=== PATIENT | male | born 1950 | race Caucasian/White ===

== ENCOUNTER 2019-10-11 14:42 | Outpatient (CLI) | payer MEDICARE, SELFPAY ==
[2019-10-11 15:51] LABS: CRP < 0.5 mg/dL (<1.0); Rheumatoid Factor 59.1 IU/ML (<12); Uric Acid 5.2 mg/dL (3.5-8.5)
[2019-10-11 16:00] LABS: Erythrocyte Sedimentation Rate 49 mm/hr (0-20)
[2019-10-16 21:56] LABS: Anti Nuclear Antibody Titer 1:40 (Negative)
== END 2019-10-11 14:43 | disposition home or self-care (01) ==
PROVIDERS: PCP Family Medicine; Visit Provider Podiatrist Foot & Ankle Surgery
DX: M19.90 Unspecified osteoarthritis, unspecified site (principal)
CPT/HCPCS: 36415; 84550; 85652; 86038; 86039; 86140; 86430

== ENCOUNTER 2019-10-19 04:54 | Emergency (ER) | payer MEDICARE, SELFPAY ==
--- NOTE | ~2019-10-19 | XR_ITS ---
XR chest 2V DATE: 10/19/2019 05:33 INDICATION: Cough TECHNIQUE: AP and lateral views COMPARISON: 07/22/2019 CT pulmonary scan 07/22/2019 2 view chest FINDINGS: Prominently dilated left pulmonary artery is again noted. Heart size appears borderline. Th oracic and abdominal aortic calcification. No pulmonary infiltrate or consolidation, pleural effusion or pulmonary vascular congestion or pneumo thorax. IMPRESSION: No active pulmonary disease Reviewed, dictated and finalized at location A. RVES CLERK IMPRESSION: No active pulmonary disease
[2019-10-19 04:58] VITALS: BP 160/59; PULSE 110; RESP 24; TEMP 37.7; O2SAT 98
[2019-10-19] MEDS: LACTATED RINGERS 1,000 ML 999 ML IV CONT (05:09)
[2019-10-19] MEDS: ACETAMINOPHEN 325 MG TABLET 650 MG PO (05:09)
[2019-10-19] MEDS: OSELTAMIVIR PHOSPHATE 75 MG CAP PO (05:09)
--- NOTE | 2019-10-19 05:11 | ED.FEVER ---
HPI - Fever General Chief Complaint: Fever Stated Complaint: fever Time Seen by Provider: 10/19/19 05:02 History of Present Illness HPI Narrative: Pt c/o cough, fever, nasal congestion and body aches x 2-3 days. Denies headache, dizziness, cp, sob, abd pain, n/v/d or urinary symptoms. MD elicited complaint: malaise Exacerbating factors: nothing Relieving factors: nothing Associated symptoms: denies other symptoms Treatments prior to arrival fever: none Related Data Home Medications Medication Instructions Recorded Confirmed alprazolam 0.5 mg tablet 0.5 mg PO TID PRN 07/12/19 12/07/19 amlodipine 5 mg tablet 10 mg PO DAILY 07/12/19 12/07/19 atorvastatin 40 mg tablet 40 mg PO DAILY 07/12/19 12/07/19 blood sugar diagnostic #10 each 07/12/19 12/07/19 blood-glucose meter #1 each 07/12/19 12/07/19 carvedilol 12.5 mg tablet 12.5 mg PO Q12H 07/12/19 12/07/19 hydrochlorothiazide 25 mg tablet 12.5 mg PO DAILY 07/12/19 12/07/19 lisinopril 20 mg tablet 20 mg PO DAILY 07/12/19 12/07/19 meclizine 25 mg tablet 25 mg PO TID PRN 07/12/19 12/07/19 nitroglycerin 0.3 mg sublingual 0.3 mg SUBLINGUAL Q5M PRN 07/12/19 12/07/19 tablet nortriptyline 25 mg capsule 25 mg PO DAILY 07/12/19 12/07/19 pantoprazole 40 mg tablet,delayed 40 mg PO DAILY tablet 07/12/19 12/07/19 release Brilinta 60 mg PO BID 07/22/19 12/07/19 aspirin 81 mg PO DAILY 07/22/19 12/07/19 folic acid 800 mg PO DAILY 07/22/19 12/07/19 Allergies Allergy/AdvReac Type Severity Reaction Status Date / Time No Known Allergies Allergy Verified 12/13/19 10:05 Review of Systems Review of Systems: All systems reviewed & are unremarkable except as noted in HPI and below Constitutional: Constitutional: Denies excessive sweating, Denies fatigue, Denies headache(s), Denies lethargy, Denies weakness and Denies weight loss Eyes: Eyes: Denies blurry vision, Denies change in vision and Denies loss of vision ENT: Denies dizziness, Denies ear discharge, Denies headache(s), Denies lip swelling, Denies epistaxis, Denies neck pain, Denies throat swelling and Denies tongue swelling Cardiovascular: Cardiovascular: Denies chest pain, Denies chest pain at rest, Denies chest pain with activity, Denies diaphoresis, Denies rapid heart rate, Denies edema, Denies irregular heart rhythm, Denies lightheadedness, Denies palpitations, Denies dyspnea and Denies dyspnea on exertion Respiratory: Respiratory: Denies chest congestion, Denies hemoptysis, Denies dyspnea and Denies dyspnea on exertion Gastrointestinal: Gastrointestinal: Denies abdominal pain, Denies melena, Denies hematochezia, Denies diarrhea, Denies nausea, Denies vomiting and Denies hematemesis Musculoskeletal: Musculoskeletal: Denies abnormal gait, Denies deformity, Denies joint swelling, Denies limited range of motion, Denies neck pain and Denies numbness Neurologic: Denies Abnormal speech present, Denies abnormal gait, Denies confusion, Denies dizziness, Denies headache(s), Denies focal weakness, Denies loss of vision, Denies numbness, Denies Other visual disturbances, Denies Sensory deficit (Neuro) and Denies weakness Psychiatric: Psychiatric: Denies confusion, Denies depression, Denies auditory hallucinations, Denies homicidal ideation and Denies suicidal ideation Endocrine: Endocrine: Denies cold intolerance, Denies excessive sweating, Denies fatigue, Denies heat intolerance and Denies palpitations Hematologic/Lymphatic: Hematologic/Lymphatic: Denies easy bleeding and Denies easy bruising Allergic/Immunologic: Allergic/Immunologic: Denies lip swelling, Denies throat swelling and Denies tongue swelling PMFSH Past Medical History Medical History (Updated 12/13/19 @ 10:45 by Marisol Smith MD) Anemia CAD (coronary artery disease) Carotid stenosis, asymptomatic h/o intracranial cerebral stenosis, evaluated at [facility] 05/2019, thought not to be symptomatic cont med tx. Chest pain Coronary artery disease Cardiac catheterization November 2009 re
[2019-10-19 05:37] VITALS: BP 186/69; PULSE 101; RESP 24; O2SAT 99
[2019-10-19 05:55] LABS: Glucose Point of Care 114 (65-105)
[2019-10-19 06:03] VITALS: BP 184/96; PULSE 101; RESP 20; TEMP 37.2; O2SAT 100
--- NOTE | 2019-10-25 06:56 | PC.NURSE ---
LATE ENTRY This note is being entered to document information to the patient's record. The following information was omitted on 10/19/2019, lr stopped at 0603
== END 2019-10-19 06:05 | disposition home or self-care (01) ==
PROVIDERS: Emergency Provider Emergency Medicine; PCP Family Medicine
DX: J10.1 Influenza due to other identified influenza virus with other respiratory manifestations (principal); Z87.891 Personal history of nicotine dependence; Z79.82 Long term (current) use of aspirin; E11.9 Type 2 diabetes mellitus without complications; I25.10 Atherosclerotic heart disease of native coronary artery without angina pectoris; I10 Essential (primary) hypertension; E78.2 Mixed hyperlipidemia; Z86.718 Personal history of other venous thrombosis and embolism; Z85.46 Personal history of malignant neoplasm of prostate; Z95.5 Presence of coronary angioplasty implant and graft; Z90.79 Acquired absence of other genital organ(s)
CPT/HCPCS: 71046; 82948; 87804; 96360; 99283; A9270; J7120

== ENCOUNTER 2019-11-15 08:47 | Outpatient (CLI) | payer MEDICARE, SELFPAY ==
[2019-11-15 11:07] LABS: Cholesterol 203 mg/dL (0-200); HDL Direct 44 mg/dL; Triglycerides 106 mg/dL (<150)
[2019-11-15 11:15] LABS: NT Pro B Type Natriuretic Pept 24 PG/ML (5-100)
[2019-11-15 11:18] LABS: LDL Cholesterol Direct 125 mg/dL
== END 2019-11-15 08:48 | disposition home or self-care (01) ==
PROVIDERS: PCP Family Medicine
DX: I25.119 Atherosclerotic heart disease of native coronary artery with unspecified angina pectoris (principal); I25.10 Atherosclerotic heart disease of native coronary artery without angina pectoris; R94.30 Abnormal result of cardiovascular function study, unspecified; R06.02 Shortness of breath; I10 Essential (primary) hypertension; E78.2 Mixed hyperlipidemia; C61 Malignant neoplasm of prostate
CPT/HCPCS: 36415; 80061; 83880

== ENCOUNTER 2019-12-13 12:00 | Outpatient (CLI) | payer MEDICARE, SELFPAY ==
--- NOTE | ~2019-12-13 | XR_ITS ---
EXAMINATION: XR foot LT standing 2V EXAM DATE: 12/13/2019 12:42 INDICATION: Left foot pain. Osteoarthritis. TECHNIQUE: Frontal and lateral projections of the left foot. Images were obtained standing. Gage rison is made to prior examination from 09/15/2019. FINDINGS: Left calcaneal small posterior, moderate size inferior spurs. Joint spaces are uniform. No periosteal reaction or band of sclerosis to suggest subacute stress fracture. There are no bony eros ions identified. There are no acute fractures or dislocations identified. There is no subcutaneous g as. The soft tissue is unremarkable. There are no radiopaque foreign bodies. There is no signific ant interval change. IMPRESSION: Calcaneal spurs. Reviewed, dictated and finalized at location A. IMPRESSION: Calcaneal spurs.
--- NOTE | ~2019-12-13 | XR_ITS ---
XR knee RT min 4V, XR knee LT min 4V 12/13/2019 12:42 Indication: Osteoarthritis. Knee pain. Procedure: 4 views of each knee Comparison: 06/30/2011 Findings: There is mild-moderate tricompartment osteoarthritis of both knees, most advanced in the me dial compartments. No fracture, subluxation or dislocation. No significant joint effusion. No radiopa que foreign bodies. Impression: 1: Mild-moderate osteoarthritis of the knees bilaterally, most advanced in the medial compartments. Reviewed, dictated and finalized at location A. Impression: 1: Mild-moderate osteoarthritis of the knees bilaterally, most advanced in the medial compartments. Impression: 1: Mild-moderate osteoarthritis of the knees bilaterally, most advanced in the medial compartments.
--- NOTE | ~2019-12-13 | XR_ITS ---
EXAMINATION: HAND-EN ARTHRITIS 3+VIEWS DATE: 12/13/2019 12:42 INDICATION: Osteoarthritis TECHNIQUE: Posteroanterior, lateral, and oblique views of the left and of the right hands as well as a ballcatchers view of both hands were obtained. COMPARISON: None. FINDINGS: Bone alignment is normal at both hands. No fracture. Large bone island at the left capitate. Polyarti cular osteoarthritis at both hands, moderate severity at the right second proximal phalanx and mild a t the bilateral triscaphe, first carpometacarpal and majority the remaining metacarpophalangeal and i nterphalangeal joints. No erosions to suggest an inflammatory arthritis. IMPRESSION: 1. Polyarticular osteoarthritis at both hands, moderate severity at the right second proximal interph alangeal joint and otherwise mild with typical relatively symmetric distribution. Reviewed, dictated and finalized at location A. IMPRESSION: 1. Polyarticular osteoarthritis at both hands, moderate severity at the right s econd proximal interphalangeal joint and otherwise mild with typical relatively symmetric distribution.
--- NOTE | ~2019-12-13 | XR_ITS ---
EXAMINATION: XR foot RT standing 2V EXAM DATE: 12/13/2019 12:42 INDICATION: Right foot. Osteoarthritis. TECHNIQUE: Frontal and lateral projections of the right foot. Images were obtained standing. Compari son is made to prior examination from 12/22/2018. FINDINGS: Small to moderate-sized right calcaneal inferior spur, small posterior calcaneal spur. No periosteal reaction or band of sclerosis to suggest subacute stress fracture. The joint spaces are un iform. There are no bony erosions identified. There are no acute fractures or dislocations identified . There is no subcutaneous gas. The soft tissue is unremarkable. There are no radiopaque foreign bodies. IMPRESSION: Right calcaneal spurs. Reviewed, dictated and finalized at location A. IMPRESSION: Right calcaneal spurs.
--- NOTE | ~2019-12-13 | XR_ITS ---
XR hip BI 2V w AP pelvis 12/13/2019 12:42 Indication: Osteoarthritis. Hip pain. Procedure: AP pelvis Comparison: 03/06/2017 Findings: Mild osteoarthritis of the hips. Pelvic rings are intact. Sacral foramen are symmetric. Pel sharmin rings are intact. There are vascular stents. There are surgical changes in the pelvis. Impression: 1: Mild osteoarthritis of the hips. Reviewed, dictated and finalized at location A. Impression: 1: Mild osteoarthritis of the hips.
[2019-12-15 21:54] LABS: Anti Cyclic Citrullinated Pept <16 Units (<20)
[2019-12-17 04:43] LABS: ANA Cascade Screen Positive (Negative)
[2019-12-17 09:22] LABS: Chromatin (Nucleosomal) Ab <1.0; Chromatin Antibody Charge YES; DNA (ds) Antibody Charge YES; RNP Antibody 4.6; RNP Antibody Charge YES; Sm Antibody <1.0; Sm Antibody Charge YES; Sm/RNP Antibody <1.0; Sm/RNP Antibody Charge YES
== END 2019-12-13 12:01 | disposition home or self-care (01) ==
PROVIDERS: PCP Family Medicine; Visit Provider Internal Medicine
DX: M19.90 Unspecified osteoarthritis, unspecified site (principal); M10.9 Gout, unspecified; M77.31 Calcaneal spur, right foot; M19.041 Primary osteoarthritis, right hand; M19.042 Primary osteoarthritis, left hand; M77.32 Calcaneal spur, left foot; M16.0 Bilateral primary osteoarthritis of hip; M17.0 Bilateral primary osteoarthritis of knee
CPT/HCPCS: 36415; 73130; 73521; 73564; 73620; 86038; 86200

== ENCOUNTER 2019-12-14 11:33 | Outpatient (RCR) | payer MEDICARE, SELFPAY | END 2019-12-14 23:59 | disposition home or self-care (01) | LOC: ANHAUDIO 11:33 | PROVIDERS: PCP Family Medicine; Visit Provider Family Medicine | DX: Z46.1 Encounter for fitting and adjustment of hearing aid (principal) | CPT/HCPCS: 92592 ==

== ENCOUNTER 2020-01-05 14:28 | Outpatient (CLI) | payer MEDICARE, SELFPAY ==
--- NOTE | ~2020-01-05 | XR_ITS ---
EXAMINATION: XR_CERV2-3V_CR EXAM DATE: 01/05/2020 16:06 INDICATION: Neck pain. TECHNIQUE: Cervical spine frontal, lateral, open-mouth odontoid projections. There is no prior stud y for comparison. FINDINGS: The vertebral bodies are aligned in the AP dimension. Mild to moderate disc disease at C4- 5 and 5-6, mild at the other cervical levels. There is overall mild to moderate cervical arthropathy. Prevertebral soft tissue and pre-dens space are within normal limits. The odontoid process is intact . The lateral masses of C1 line up with C2. Lung apices are clear. There is aortic arteriosclerosis. IMPRESSION: Mild to moderate cervical spondylosis. Reviewed, dictated and finalized at location A.
--- NOTE | ~2020-01-05 | XR_ITS ---
XR shoulder RT min 2V 01/05/2020 16:06 Indication: Right shoulder pain Procedure: 4 views right shoulder Comparison: 05/05/2019 Findings: No acute fracture or traumatic malalignment. No significant soft tissue abnormality. No vis ualized lung parenchyma is unremarkable. No focal soft tissue abnormality. No foreign bodies. Impression: 1: No acute bone or joint abnormality. Reviewed, dictated and finalized at location A. Impression: 1: No acute bone or joint abnormality.
== END 2020-01-05 14:29 | disposition home or self-care (01) ==
LOC: ANHIMG 15:36
PROVIDERS: PCP Family Medicine; Visit Provider Nurse Practitioner Family
DX: M25.519 Pain in unspecified shoulder (principal); M54.2 Cervicalgia; M47.812 Spondylosis without myelopathy or radiculopathy, cervical region
CPT/HCPCS: 72040; 73030

== ENCOUNTER 2020-03-17 07:12 | Outpatient (NON) | payer MEDICARE, SELFPAY ==
[2020-03-17 18:30] LABS: SARS-CoV-2 RNA PCR Negative
== END 2020-03-17 07:13 ==
PROVIDERS: PCP Family Medicine; Visit Provider Family Medicine
DX: J02.9 Acute pharyngitis, unspecified (principal); R68.89 Other general symptoms and signs; Z20.828 Contact with and (suspected) exposure to other viral communicable diseases
CPT/HCPCS: 87635; C9803; U0003

== ENCOUNTER 2020-04-04 13:33 | Outpatient (CLI) | payer MEDICARE, SELFPAY ==
--- NOTE | ~2020-04-04 | US_ITS ---
EXAMINATION: US venous doppler [facility] DATE: 04/04/2020 14:22 INDICATION: Bilateral lower limb pain TECHNIQUE: Grayscale ultrasound images without and with compression and Doppler ultrasound images of the bilateral lower extremity veins were obtained. COMPARISON: 09/15/2019 FINDINGS: The visualized portions of right common femoral vein, profunda (deep) femoral vein, femoral vein, pop liteal vein, posterior tibial veins, peroneal veins, gastrocnemius vein and greater saphenous vein ou tflow are patent. The visualized portions of left common femoral vein, profunda femoral vein, femoral vein, popliteal v ein, posterior tibial veins, peroneal veins, gastrocnemius vein and greater saphenous vein outflow ar e patent. IMPRESSION: 1. No deep venous thrombosis in either lower limb. Reviewed, dictated and finalized at location A.
== END 2020-04-04 13:34 | disposition home or self-care (01) ==
LOC: ANHIMG 13:46
PROVIDERS: PCP Family Medicine; Visit Provider Nurse Practitioner Family
DX: M79.89 Other specified soft tissue disorders (principal)
CPT/HCPCS: 93970

== ENCOUNTER 2020-04-17 19:41 | Emergency (ER) | payer MEDICARE, SELFPAY ==
--- NOTE | ~2020-04-17 | XR_ITS ---
EXAMINATION: XR chest 1V portable DATE: 04/17/2020 20:32 INDICATION: Weakness. TECHNIQUE: frontal view of the chest was obtained. COMPARISON: Chest radiograph dated 10/19/2019 FINDINGS: The lungs remain clear with no focal airspace opacities, pulmonary edema, pleural effusion or pneumot horax. Cardiomegaly. Enlargement of the central pulmonary arteries consistent with pulmonary arterial hypertension. Resection of the distal right clavicle. Atherosclerotic calcifications at the bilatera l carotid bulbs. IMPRESSION: 1. No acute cardiopulmonary disease. 2. Cardiomegaly along with enlargement of the central pulmonary arteries consistent with pulmonary ar terial hypertension. Reviewed, dictated and finalized at location A. IMPRESSION: 1. No acute cardiopulmonary disease. 2. Cardiomegaly along with enlargement of the central pulmonary arteries consis tent with pulmonary arterial hypertension.
[2020-04-17 19:46] VITALS: BP 143/69; PULSE 97; RESP 18; TEMP 36.8; O2SAT 99
[2020-04-17 20:05] LABS: Basophils Absolute Auto 0.1 K/mm3 (0.0-0.1); Basophils Percent Auto 0.5 % (0.2-1.2); Eosinophils Absolute Auto 0.2 K/mm3 (0-0.3); Eosinophils Percent Auto 2.3 % (0-4.4); Hematocrit 34.9 % (42.0-52.0); Hemoglobin 12.1 g/dL (14.0-18.0); Immature Granulocyte Absolute 0.06 K/mm3 (0.00-0.031); Immature Granulocyte Percent A 0.6 % (0-0.5); Lymphocytes Absolute Auto 1.97 K/mm3 (0.9-3.2); Lymphocytes Percent Auto 20.7 % (18.3-44.2); Mean Corpuscular HGB Conc 34.7 g/dl (32-36); Mean Corpuscular Hemoglobin 31.4 pg (26-34); Mean Corpuscular Volume 90.6 fl (80-100); Mean Platelet Volume 10.5 fl (7.4-10.4); Monocytes Absolute Auto 0.6 K/mm3 (0.1-0.6); Monocytes Percent Auto 6.3 % (2.6-8.5); Neutrophils Absolute Auto 6.6 K/mm3 (1.3-6.7); Neutrophils Percent Auto 69.6 % (45.5-73.1); Platelet Count Result 228 k/mm3 (150-375); Red Blood Count 3.85 M/mm3 (4.6-6.20); White Blood Count 9.5 K/mm3 (4.5-10.0)
--- NOTE | 2020-04-17 20:09 | ECG_ITS ---
Measurements Intervals [place] Rate: 99 P: 37 IN: 172 QRS: -5 QRSD: 99 T: 50 QT: 327 QTc: 421 Interpretive Statements SINUS RHYTHM EARLY PRECORDIAL R/S TRANSITION BORDERLINE ECG Electronically Signed On 04-18-2020 7:05:07 CDT by Jovanny Mcduffie D.O.
--- NOTE | 2020-04-17 20:17 | ED.GENADULT ---
HPI - General Adult General Chief complaint: Unspecified Stated complaint: near syncopal Time Seen by Provider: 04/17/20 19:50 Source: patient Mode of arrival: EMS Limitations: no limitations History of Present Illness HPI narrative: This patient is a 69 year old male who presents for evaluation of dizziness x 2 weeks. He states that he feels like he is weakness and lightheaded when ever he is standing up. He states initially it would only last a short while but today his lightheaded is lasting longer. He was up cooking dinner and he felt like he needed to sit or he would pass out. He has been having diarrhea for several weakness and he states he has 3 episodes day. He denies chest pain, abdominal pain, fever, nausea or vomiting. He was seen by Dr. lay, and he was prescribed Augmentin 5 days ago for his diarrhea. Related Data Home Medications Medication Instructions Recorded Confirmed alprazolam 0.5 mg tablet 0.5 mg PO TID PRN 07/12/19 04/05/20 amlodipine 5 mg tablet 10 mg PO DAILY 07/12/19 04/05/20 atorvastatin 40 mg tablet 40 mg PO DAILY 07/12/19 04/05/20 blood sugar diagnostic #10 each 07/12/19 04/05/20 blood-glucose meter #1 each 07/12/19 04/05/20 carvedilol 12.5 mg tablet 12.5 mg PO Q12H 07/12/19 04/05/20 hydrochlorothiazide 25 mg tablet 12.5 mg PO DAILY 07/12/19 04/05/20 lisinopril 20 mg tablet 20 mg PO DAILY 07/12/19 04/05/20 meclizine 25 mg tablet 25 mg PO TID PRN 07/12/19 04/05/20 nitroglycerin 0.3 mg sublingual 0.3 mg SUBLINGUAL Q5M PRN 07/12/19 04/05/20 tablet nortriptyline 25 mg capsule 25 mg PO DAILY 07/12/19 04/05/20 pantoprazole 40 mg tablet,delayed 40 mg PO DAILY tablet 07/12/19 04/05/20 release Brilinta 60 mg PO BID 07/22/19 04/05/20 aspirin 81 mg PO DAILY 07/22/19 04/05/20 folic acid 800 mg PO DAILY 07/22/19 04/05/20 Allergies Allergy/AdvReac Type Severity Reaction Status Date / Time No Known Allergies Allergy Verified 04/04/20 12:21 Review of Systems Review of Systems: All systems reviewed & are unremarkable except as noted in HPI and below Constitutional: Constitutional: Denies chills, Reports fatigue and Denies fever(s) Cardiovascular: Cardiovascular: Denies chest pain, Denies rapid heart rate and Denies radiating jaw, neck or arm pain Respiratory: Respiratory: Denies cough and Denies wheezing Gastrointestinal: Gastrointestinal: Denies abdominal pain, Reports diarrhea, Denies nausea and Denies vomiting PMFSH Social History Social History Social History: The patient has 2 sons and is . 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 Wishes to be a full code. 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 Gender identity (if verbalized by the patient): Male Spiritual care concerns: Yes Agree to blood products: Yes Exam Narrative: Exam Narrative: GENERAL: Well-appearing, well-nourished, and in no acute distress. HEAD: Normocephalic, atraumatic EYES: PERRLA and EOMI, conjunctiva clear without discharge EARS: TM's clear bilaterally without erythema or dullness NOSE: Nares clear, no rhinorrhea or epistaxis THROAT:Mucous membranes moist, Oropharynx normal without erythema, exudate, peritonsillar swelling or fluctuance NECK: Supple, without lymphadenopathy or mass RESPIRATORY: No respiratory distress, Airway patent, Respirations non-labored, Clear to auscultation without rales, rhonchi or wheeze HEART: Regular rate and rhythm. No murmur
--- NOTE | 2020-04-17 20:22 | PC.NURSE ---
Called lab to add on magnesium
[2020-04-17 20:24] LABS: Alanine Aminotransferase 27 U/L (4-50); Alkaline Phosphatase 78 U/L (38-126); Anion Gap 8 mmol/L (8-16); Aspartate Amino Transferase 25 U/L (17-59); Bilirubin,Total 0.5 mg/dL (0.2-1.3); Blood Urea Nitrogen 24 mg/dL (9-20); Calcium 9.5 mg/dL (8.4-10.2); Carbon Dioxide 25 mmol/L (22-30); Chloride 101 mmol/L (98-107); Estimated CRCL calculation 43 ml/min; Estimated Glomerular Filt Rate 55; Glucose 128 mg/dL (75-110); Potassium 3.9 mmol/L (3.4-5.0); Sodium 134 mmol/L (137-145)
[2020-04-17 20:32] LABS: Magnesium 1.2 mg/dL (1.6-2.3)
[2020-04-17 20:36] LABS: Add Urine Microscopic? NO; Appearance Urine Clear (Clear); Bilirubin Urine Negative (Negative); Blood Urine Negative (Negative); Color Urine Straw (Yellow); Glucose Urine UA Negative (Negative); Ketones Urine Negative (Negative); Leukocyte Esterase Ur Negative LEU/UL (Negative); Nitrate Urine Negative (Negative); Protein Urine Negative (Negative); Specific Grav Ur 1.015 (1.001-1.035); Urobilinogen Urine Negative mg/dL (<2.0)
[2020-04-17] MEDS: LACTATED RINGERS 1,000 ML 999 ML IV CONT (20:46)
[2020-04-17 21:27] VITALS: BP 159/69; PULSE 109; RESP 18; O2SAT 99
[2020-04-17] MEDS: MAGNESIUM SULFATE 3GM/D5W100ML 3 GM/100 ML BAG IVPB (21:27)
[2020-04-17 21:40] VITALS: BP 115/58; BP 138/65; BP 148/62; PULSE 106; PULSE 107; PULSE 108
[2020-04-17 22:39] VITALS: BP 132/68; PULSE 100; RESP 18; O2SAT 99
[2020-04-17] MEDS: SODIUM CHLORIDE 0.9% IV 1,000 ML 999 ML IV CONT (22:39)
[2020-04-17 23:08] VITALS: BP 142/59; PULSE 103; RESP 19; TEMP 36.7; O2SAT 99
--- NOTE | 2020-04-17 23:08 | PC.NURSE ---
Assumed care of Pt. at this time. Report from BARAK Pulido
[2020-04-18 00:45] VITALS: BP 140/64; PULSE 78; RESP 19; O2SAT 99
== END 2020-04-18 00:45 | disposition home or self-care (01) ==
PROVIDERS: Emergency Provider General Practice; PCP Family Medicine
DX: E86.0 Dehydration (principal); E83.42 Hypomagnesemia; R19.7 Diarrhea, unspecified; Z87.891 Personal history of nicotine dependence
CPT/HCPCS: 36415; 71045; 80053; 81003; 83735; 85025; 93005; 96361; 96365; 99284; J3475; J7030; J7120

== ENCOUNTER 2020-04-24 09:37 | Outpatient (CLI) | payer MEDICARE, SELFPAY ==
[2020-04-24 09:58] LABS: Basophils Absolute Auto 0.1 K/mm3 (0.0-0.1); Basophils Percent Auto 0.8 % (0.2-1.2); Eosinophils Absolute Auto 0.2 K/mm3 (0-0.3); Eosinophils Percent Auto 2.6 % (0-4.4); Hematocrit 34.4 % (42.0-52.0); Hemoglobin 11.7 g/dL (14.0-18.0); Immature Granulocyte Absolute 0.05 K/mm3 (0.00-0.031); Immature Granulocyte Percent A 0.7 % (0-0.5); Lymphocytes Percent Auto 18.2 % (18.3-44.2); Mean Corpuscular Hemoglobin 31.4 pg (26-34); Mean Corpuscular Volume 92.2 fl (80-100); Mean Platelet Volume 10.3 fl (7.4-10.4); Monocytes Absolute Auto 0.4 K/mm3 (0.1-0.6); Monocytes Percent Auto 5.7 % (2.6-8.5); Neutrophils Absolute Auto 5.5 K/mm3 (1.3-6.7); Platelet Count Result 203 k/mm3 (150-375); Red Blood Count 3.73 M/mm3 (4.6-6.20); White Blood Count 7.7 K/mm3 (4.5-10.0)
[2020-04-24 10:16] LABS: Potassium 3.8 mmol/L (3.4-5.0)
[2020-04-24 10:48] LABS: Anion Gap 8 mmol/L (8-16); Blood Urea Nitrogen 22 mg/dL (9-20); Calcium 9.2 mg/dL (8.4-10.2); Carbon Dioxide 26 mmol/L (22-30); Chloride 102 mmol/L (98-107); Estimated Glomerular Filt Rate > 60; Glucose 245 mg/dL (75-110); Magnesium 1.3 mg/dL (1.6-2.3); Sodium 136 mmol/L (137-145)
== END 2020-04-24 09:38 | disposition home or self-care (01) ==
PROVIDERS: PCP Family Medicine; Visit Provider Physician Assistant Medical
DX: D64.9 Anemia, unspecified (principal); E83.42 Hypomagnesemia; N28.9 Disorder of kidney and ureter, unspecified
CPT/HCPCS: 36415; 80048; 83735; 85025

== ENCOUNTER 2020-04-28 11:51 | Outpatient (CLI) | payer MEDICARE, SELFPAY ==
[2020-05-04 00:38] LABS: Lactoferrin, Stool Negative (Negative)
== END 2020-04-28 11:52 | disposition home or self-care (01) ==
PROVIDERS: PCP Family Medicine; Visit Provider Physician Assistant Medical
DX: R19.7 Diarrhea, unspecified (principal)
CPT/HCPCS: 83630; 87045; 87046; 87177; 87209; 87427; 89055

== ENCOUNTER 2020-05-03 12:39 | Outpatient (CLI) | payer MEDICARE, SELFPAY ==
[2020-05-03 13:08] LABS: Hematocrit 33.9 % (42.0-52.0); Hemoglobin 11.4 g/dL (14.0-18.0); Mean Corpuscular HGB Conc 33.6 g/dl (32-36); Mean Corpuscular Volume 92.1 fl (80-100); Mean Platelet Volume 10.9 fl (7.4-10.4); Platelet Count Result 205 k/mm3 (150-375); Red Blood Count 3.68 M/mm3 (4.6-6.20); Red Cell Distribution Width 14.2 % (11.5-14.5); White Blood Count 8.1 K/mm3 (4.5-10.0)
[2020-05-03 13:21] LABS: Add Urine Microscopic? YES; Appearance Urine Clear (Clear); Bacteria Urine Trace /hpf; Bilirubin Urine Negative (Negative); Blood Urine Negative (Negative); Color Urine Yellow (Yellow); Glucose Urine UA Negative (Negative); Ketones Urine Negative (Negative); Leukocyte Esterase Ur Negative LEU/UL (Negative); Mucus Urine Rare /lpf; Nitrate Urine Negative (Negative); Protein Urine 1+ mg/dL (Negative); RBC Urine 0-2 /hpf (0-2); Specific Grav Ur 1.018 (1.001-1.035); Squamous Epithelial Cell Urine Occasional /hpf (Few); Urobilinogen Urine Negative mg/dL (<2.0); WBC Urine 0-3 /hpf
[2020-05-03 13:21] LABS: Alanine Aminotransferase 21 U/L (4-50); Albumin Level 3.9 g/dL (3.5-5.1); Alkaline Phosphatase 85 U/L (38-126); Anion Gap 8 mmol/L (8-16); Aspartate Amino Transferase 22 U/L (17-59); Bilirubin,Total 0.4 mg/dL (0.2-1.3); Blood Urea Nitrogen 18 mg/dL (9-20); CRP 0.9 mg/dL (<1.0); Calcium 9.4 mg/dL (8.4-10.2); Carbon Dioxide 27 mmol/L (22-30); Chloride 103 mmol/L (98-107); Estimated Glomerular Filt Rate > 60; Glucose 185 mg/dL (75-110); Potassium 4.2 mmol/L (3.4-5.0); Sodium 138 mmol/L (137-145); Uric Acid 5.4 mg/dL (3.5-8.5)
[2020-05-03 13:44] LABS: Erythrocyte Sedimentation Rate > 140 mm/hr (0-20)
== END 2020-05-03 12:40 | disposition home or self-care (01) ==
LOC: ANHLAB 12:42
PROVIDERS: PCP Family Medicine; Visit Provider Internal Medicine
DX: M19.90 Unspecified osteoarthritis, unspecified site (principal); E11.9 Type 2 diabetes mellitus without complications
CPT/HCPCS: 36415; 80053; 81001; 84550; 85027; 85652; 86140

== ENCOUNTER 2020-05-04 17:00 | Outpatient (CLI) | payer MEDICARE, SELFPAY ==
[2020-05-10 19:03] LABS: Lactoferrin, Stool Negative (Negative)
== END 2020-05-04 17:01 | disposition home or self-care (01) ==
PROVIDERS: PCP Family Medicine; Visit Provider Physician Assistant Medical
DX: R19.7 Diarrhea, unspecified (principal)
CPT/HCPCS: 83630; 87045; 87046; 87177; 87209; 87324; 87427

== ENCOUNTER 2020-05-07 15:35 | Emergency (ER) | payer MEDICARE, SELFPAY ==
--- NOTE | ~2020-05-07 | CT_ITS ---
EXAMINATION: CT abdomen pelvis w con DATE: 05/07/2020 17:38 INDICATION: Left lower quadrant abdominal pain TECHNIQUE: Computed tomography (CT) of the abdomen and pelvis was performed with 100 cc Omnipaque 350 intravenous contrast. Automated exposure control and iterative reconstruction technique were employe d. Exam dose: 475.24 mGy-cm total exam DLP. COMPARISON: 08/24/2019 CT abdomen pelvis FINDINGS: Heart size is within normal limits. There is trace pericardial fluid. The liver, gallbladder, spleen, pancreas, adrenal glands and kidneys are unremarkable. There is some thickening of the distal esophagus, which might indicate esophagitis. Very small slidin g hiatal hernia is suggested. No bile duct or pancreatic duct dilatation. No pancreatic calcification. There is severe calcification of the abdominal aorta with significant stenosis of the aortic lumen. E ndovascular stent is noted in the distal abdominal aorta and iliac arteries. No abdominal aortic aneu rysm. No intraperitoneal or retroperitoneal or pelvic mass lesion or adenopathy or ascites is evident . Status post prostatectomy. Damián's prosthesis is noted Mild colonic diverticulosis. There is epiploic appendagitis in the left abdomen along the proximal descending colon; this is usual ly self-limited and resolves spontaneously. There are fluid levels within the small bowel and colon. Colon fluid levels are abnormal unless ther e have been recent enemas. Consider enterocolitis. No bowel obstruction, bowel wall thickening, pneum atosis or intraperitoneal free air. No suspicious osteolytic or osteoblastic lesions. Mild anterior wedge compression fracture deformity of L4, likely chronic. IMPRESSION: Epiploic appendagitis at the proximal descending colon Fluid levels of the small and large bowel suggesting enterocolitis Mild colonic diverticulosis Very small sliding hiatal hernia is suggested, as well as possible distal esophagitis Severe atherosclerotic calcification and stenosis of the abdominal aorta; endovascular stent and dist al aorta and iliac arteries Status post prostatectomy; Damián's prosthesis Reviewed, dictated and finalized at [facility]. Reviewed, dictated and finalized at [facility]. IMPRESSION: Epiploic appendagitis at the proximal descending colon Fluid levels of the small and large bowel suggesting enterocolitis Mild colonic diverticulosis Very small sliding hiatal hernia is suggested, as well as possible distal esoph agitis Severe atherosclerotic calcification and stenosis of the abdominal aorta; endov ascular stent and distal aorta and iliac arteries Status post prostatectomy; Damián's prosthesis
[2020-05-07 15:36] VITALS: RESP 16
[2020-05-07 15:52] LABS: Basophils Absolute Auto 0.1 K/mm3 (0.0-0.1); Basophils Percent Auto 0.5 % (0.2-1.2); Eosinophils Absolute Auto 0.2 K/mm3 (0-0.3); Eosinophils Percent Auto 1.5 % (0-4.4); Hematocrit 35.6 % (42.0-52.0); Hemoglobin 12.2 g/dL (14.0-18.0); Immature Granulocyte Absolute 0.07 K/mm3 (0.00-0.031); Immature Granulocyte Percent A 0.6 % (0-0.5); Lymphocytes Absolute Auto 1.86 K/mm3 (0.9-3.2); Lymphocytes Percent Auto 16.4 % (18.3-44.2); Mean Corpuscular HGB Conc 34.3 g/dl (32-36); Mean Corpuscular Hemoglobin 31.8 pg (26-34); Mean Corpuscular Volume 92.7 fl (80-100); Mean Platelet Volume 10.7 fl (7.4-10.4); Monocytes Absolute Auto 0.8 K/mm3 (0.1-0.6); Monocytes Percent Auto 7.4 % (2.6-8.5); Neutrophils Absolute Auto 8.4 K/mm3 (1.3-6.7); Neutrophils Percent Auto 73.6 % (45.5-73.1); Nucleated Red Blood Cells Perc 0.2 % (0.0-0.2); Platelet Count Result 224 k/mm3 (150-375); Red Blood Count 3.84 M/mm3 (4.6-6.20); Red Cell Distribution Width 14.3 % (11.5-14.5); White Blood Count 11.4 K/mm3 (4.5-10.0)
--- NOTE | 2020-05-07 15:54 | ED.ABDPAIN ---
HPI - Abdominal Pain General Chief Complaint: Abdominal Pain <NELLIE Guerin Last Filed: 05/07/20 19:00> Stated Complaint: left sided flank pain <NELLIE Guerin Last Filed: 05/07/20 19:00> Time Seen by Provider: 05/07/20 15:40 <NELLIE Guerin Last Filed: 05/07/20 19:00> Source: patient <NELLIE Guerin Last Filed: 05/07/20 19:00> Mode of arrival: ambulatory <NELLIE Guerin Last Filed: 05/07/20 19:00> Limitations: no limitations <NELLIE Guerin Last Filed: 05/07/20 19:00> History of Present Illness HPI narrative: Patient is a 69-year-old male who presents to emergency department for evaluation of left lower quadrant pain that began over the last 2 days as a sharp aching pain that is progressively worse patient notes history of bowel obstruction and has concern for possible recurrence patient notes that he has had a few small stools and passing gas this morning patient notes some nausea but denies emesis <NELLIE Guerin Last Filed: 05/07/20 19:00> Related Data Home Medications: Home Medications Medication Instructions Recorded Confirmed alprazolam 0.5 mg tablet 0.5 mg PO TID PRN 07/12/19 04/05/20 amlodipine 5 mg tablet 10 mg PO DAILY 07/12/19 04/05/20 atorvastatin 40 mg tablet 40 mg PO DAILY 07/12/19 04/05/20 blood sugar diagnostic #10 each 07/12/19 04/05/20 blood-glucose meter #1 each 07/12/19 04/05/20 carvedilol 12.5 mg tablet 12.5 mg PO Q12H 07/12/19 04/05/20 hydrochlorothiazide 25 mg tablet 12.5 mg PO DAILY 07/12/19 04/05/20 lisinopril 20 mg tablet 20 mg PO DAILY 07/12/19 04/05/20 meclizine 25 mg tablet 25 mg PO TID PRN 07/12/19 04/05/20 nitroglycerin 0.3 mg sublingual 0.3 mg SUBLINGUAL Q5M PRN 07/12/19 04/05/20 tablet nortriptyline 25 mg capsule 25 mg PO DAILY 07/12/19 04/05/20 pantoprazole 40 mg tablet,delayed 40 mg PO DAILY tablet 07/12/19 04/05/20 release Brilinta 60 mg PO BID 07/22/19 04/05/20 aspirin 81 mg PO DAILY 07/22/19 04/05/20 folic acid 800 mg PO DAILY 07/22/19 04/05/20 <Chaz Quiroga PA-C - Last Filed: 05/07/20 19:00> Allergies/Adverse Reactions: Allergies Allergy/AdvReac Type Severity Reaction Status Date / Time No Known Allergies Allergy Verified 04/23/20 14:10 <NELLIE Guerin Last Filed: 05/07/20 19:00> Review of Systems Review of Systems: All systems reviewed & are unremarkable except as noted in HPI and below <Chaz Quiroga PA-C - Last Filed: 05/07/20 19:00> [facility] Past Medical History Medical History: Medical History Anemia CAD (coronary artery disease) Carotid stenosis, asymptomatic h/o intracranial cerebral stenosis, evaluated at [place] 05/2019, thought not to be symptomatic cont med tx. Chest pain Coronary artery disease Cardiac catheterization November 2009 resulting in a percutaneous coronary intervention left circumflex artery with a single drug-eluting stent DJD of shoulder Glaucoma Gout Hypertension Inflammatory arthritis (~10/2019) Malignant neoplasm of prostate Mixed hyperlipidemia Personal history of DVT (deep vein thrombosis) Prostate cancer Stenosis of infrarenal abdominal aorta due to arteriosclerosis Says his aorta is mildly enlarged Type 2 diabetes mellitus without complications <Chaz Quiroga PA-C - Last Filed: 05/07/20 19:00> Surgical History Surgical History: Surgical History H/O cardiac catheterization H/O cystoscopy H/O heart artery stent H/O rectal polypectomy History of prostatectomy Had prostate cancer, status post prostatectomy and later radiation therapy. Has an implanted device to help with urinary incontinence. S/P arthroscopic surgery of left knee <Chaz Quiroga PA-C - Last Filed: 05/07/20 19:00> Family History Family History: Family History (Reviewed 05/07/20 @ 16:01
[2020-05-07 16:04] LABS: Anion Gap 10 mmol/L (8-16); Blood Urea Nitrogen 21 mg/dL (9-20); Calcium 9.7 mg/dL (8.4-10.2); Carbon Dioxide 24 mmol/L (22-30); Chloride 101 mmol/L (98-107); Estimated CRCL calculation 50 ml/min; Estimated Glomerular Filt Rate > 60; Glucose 148 mg/dL (75-110); Sodium 135 mmol/L (137-145)
[2020-05-07 16:05] LABS: Add Urine Microscopic? NO; Appearance Urine Clear (Clear); Bilirubin Urine Negative (Negative); Blood Urine Negative (Negative); Color Urine Yellow (Yellow); Glucose Urine UA Negative (Negative); Ketones Urine Negative (Negative); Leukocyte Esterase Ur Negative LEU/UL (Negative); Nitrate Urine Negative (Negative); Protein Urine Negative (Negative); Specific Grav Ur 1.013 (1.001-1.035); Urobilinogen Urine Negative mg/dL (<2.0)
[2020-05-07 16:09] LABS: Alanine Aminotransferase 22 U/L (4-50); Albumin Level 4.2 g/dL (3.5-5.1); Alkaline Phosphatase 101 U/L (38-126); Aspartate Amino Transferase 26 U/L (17-59); Bilirubin,Total 0.6 mg/dL (0.2-1.3); Lipase 148 U/L (23-300)
[2020-05-07] MEDS: SODIUM CHLORIDE 0.9% IV 1,000 ML 999 ML IV CONT (16:24)
[2020-05-07] MEDS: FAMOTIDINE 20 MG/2 ML VIAL IV PUSH (16:24)
[2020-05-07 19:15] VITALS: BP 132/56; PULSE 88; RESP 18; O2SAT 100
== END 2020-05-07 19:16 | disposition home or self-care (01) ==
PROVIDERS: Emergency Medicine Emergency Medical Services; Emergency Provider Emergency Medicine; PCP Family Medicine
DX: K63.89 Other specified diseases of intestine (principal); I25.10 Atherosclerotic heart disease of native coronary artery without angina pectoris; I65.29 Occlusion and stenosis of unspecified carotid artery; H40.9 Unspecified glaucoma; I10 Essential (primary) hypertension; Z85.46 Personal history of malignant neoplasm of prostate; E78.2 Mixed hyperlipidemia; E11.9 Type 2 diabetes mellitus without complications; Z79.82 Long term (current) use of aspirin; Z95.5 Presence of coronary angioplasty implant and graft; Z87.19 Personal history of other diseases of the digestive system; Z90.79 Acquired absence of other genital organ(s); Z87.891 Personal history of nicotine dependence; K57.90 Diverticulosis of intestine, part unspecified, without perforation or abscess without bleeding; I35.0 Nonrheumatic aortic (valve) stenosis; I70.0 Atherosclerosis of aorta
CPT/HCPCS: 36415; 74177; 80048; 80076; 81003; 83690; 85025; 96361; 96365; 96375; 99284; J0131; J7030; Q9967

== ENCOUNTER 2020-05-11 12:00 | Outpatient (RCR) | payer SELFPAY | END 2020-05-11 23:59 | disposition home or self-care (01) | LOC: ANHAUDIO 12:00 | PROVIDERS: PCP Family Medicine; Visit Provider Family Medicine | DX: Z46.1 Encounter for fitting and adjustment of hearing aid (principal) | CPT/HCPCS: 92592; 99199 ==

== ENCOUNTER 2020-05-11 12:52 | Outpatient (CLI) | payer MEDICARE, SELFPAY ==
[2020-05-11 13:25] LABS: Anion Gap 8 mmol/L (8-16); Blood Urea Nitrogen 27 mg/dL (9-20); Calcium 9.1 mg/dL (8.4-10.2); Carbon Dioxide 27 mmol/L (22-30); Chloride 104 mmol/L (98-107); Estimated Glomerular Filt Rate 55; Glucose 101 mg/dL (75-110); Magnesium 1.3 mg/dL (1.6-2.3); Potassium 4.1 mmol/L (3.4-5.0); Sodium 139 mmol/L (137-145)
[2020-05-11 13:43] LABS: Iron 74 ug/dL (49-181)
[2020-05-11 13:52] LABS: Percent Iron Saturation 25 % (20-50)
== END 2020-05-11 12:53 | disposition home or self-care (01) ==
PROVIDERS: PCP Family Medicine; Visit Provider Physician Assistant Medical
DX: E87.1 Hypo-osmolality and hyponatremia (principal); E83.42 Hypomagnesemia; D64.9 Anemia, unspecified
CPT/HCPCS: 36415; 80048; 83540; 83550; 83735

== ENCOUNTER 2020-05-22 03:12 | Outpatient (CLI) | payer MEDICARE, SELFPAY ==
[2020-05-22 20:04] LABS: SARS-CoV-2 RNA PCR Negative
== END 2020-05-22 03:13 | disposition home or self-care (01) ==
LOC: ANHCOVIDDT 03:13
PROVIDERS: PCP Family Medicine; Visit Provider Internal Medicine Gastroenterology
DX: Z01.812 Encounter for preprocedural laboratory examination (principal); Z11.59 Encounter for screening for other viral diseases
CPT/HCPCS: 87635; C9803; U0003

== ENCOUNTER 2020-05-24 01:27 | Day surgery (SDC) | payer MEDICARE, SELFPAY ==
[2020-05-15 09:52] VITALS: BMI 26.6
[2020-05-24 09:20] VITALS: BP 114/49; PULSE 69; RESP 20; TEMP 36.1; O2SAT 98; BMI 24.6
[2020-05-24] MEDS: LACTATED RINGERS 1,000 ML 150 ML IV CONT (09:39)
--- NOTE | 2020-05-24 09:53 | PM.IMHP ---
H&P: [facility] History of Present Illness Date/Time: 05/24/20 09:53 Chief complaint: diarrhea, GERD Narrative: Reason for visit EGD and colonoscopy. this very pleasant gentleman seen in consultation at request of the primary physician. Impression: Your very pleasant gentleman chronic diarrhea. He has known collagenous colitis. He also has a history of adenomatous colon polyps. He is here for colonoscopy to assess for lying inflammatory neoplastic disease. GERD with breakthrough symptoms. HTN. HLD. Coronary disease with a history of myocardial infarction. Status post stent placement. DM. Gout. History of small-bowel obstruction. Prostate cancer. Glaucoma. Carotid artery stenosis. History DVT. Recommendation: EGD and colonoscopy. History: This very pleasant gentleman is a history of reflux disease. Continues have breakthrough symptoms on pantoprazole. Patient is here for endoscopic evaluation. He does have some dysphagia to both solid and liquid food. He also has dysphagia to pills. He is here for endoscopic evaluation. The patient has a history of chronic diarrhea. It is usually formed the morning and progressively worsened through the day. He does occasionally have nocturnal awakenings. Hematochezia, melena and acholic stools. He has had documented adenomatous colon polyps and colitis colitis. He is not presently on any treatment for collagenous colitis. The patient is [id number] at this time. Review of systems otherwise unremarkable. Physical examination: General: very pleasant patient in no acute distress. HEENT: Head was normocephalic sclerae is clear mouth without masses neck was supple. Heart: Rate rhythm regular without S3 or S4. Lungs: CTA. Abdomen: Soft with no guarding or rigidity. Bowel sounds were active. Neurologic: Cranial nerves 2 through 12 intact. No focal defects. No clonus. Musculoskeletal system: Revealed no joint tenderness or swelling no muscle atrophy. Extremities: Reveal no significant edema. Skin: Warm and dry with normal turgor. Mental status: intact. Patient is alert and oriented. Review of Systems Review of Systems: All systems reviewed & are unremarkable except as noted in HPI and below [facility] Past Medical History Medical History (Updated 05/24/20 @ 09:31 by Brent Dickinson DO) Adenomatous colon polyp Anemia CAD (coronary artery disease) Carotid stenosis, asymptomatic h/o intracranial cerebral stenosis, evaluated at [place] 05/2019, thought not to be symptomatic cont med tx. Collagenous colitis GERD (gastroesophageal reflux disease) Glaucoma Gout (~08/2019) HLD (hyperlipidemia) HTN (hypertension) Personal history of DVT (deep vein thrombosis) Prostate cancer Stenosis of infrarenal abdominal aorta due to arteriosclerosis Says his aorta is mildly enlarged Type 2 diabetes mellitus without complications Surgical History Surgical History H/O cardiac catheterization H/O cystoscopy H/O heart artery stent H/O rectal polypectomy History of prostatectomy Had prostate cancer, status post prostatectomy and later radiation therapy. Has an implanted device to help with urinary incontinence. S/P arthroscopic surgery of left knee Social History Social History Social History: The patient has 2 sons and is . He does not have a durable power attorney law clerk. Wishes to be a full code. 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
--- NOTE | 2020-05-24 09:57 | WPDANESEPPF ---
Anes - Initial Pre Proc Eval Procedure: Operation Date: 05/24/20 09:30 Proposed Procedures p Esophagogastroduodenoscopy & Colonoscopy - Brent Dickinson DO Date/Time: 05/24/20 09:57 Surgeon: Brent Dickinson DO Pre Op Diagnosis: diarrhea, GERD Patient Data Age: 69 Gender: M Height: 5 ft 6 in Weight: 69.3 kg Last Vital Signs Temp 97 F L 05/24/20 09:20 Pulse 69 05/24/20 09:20 Resp 20 05/24/20 09:20 BP 114/49 L 05/24/20 09:20 Pulse Ox 98 05/24/20 09:20 Allergies Allergy/AdvReac Type Severity Reaction Status Date / Time No Known Allergies Allergy Verified 05/24/20 09:16 Home Medications Medication Instructions Recorded Confirmed Type alprazolam 0.5 mg tablet 0.5 mg PO TID PRN 07/12/19 05/15/20 History amlodipine 5 mg tablet 10 mg PO DAILY 07/12/19 05/15/20 History atorvastatin 40 mg tablet 40 mg PO DAILY 07/12/19 05/15/20 History blood sugar diagnostic #10 each 07/12/19 05/15/20 History blood-glucose meter #1 each 07/12/19 05/15/20 History carvedilol 12.5 mg tablet 12.5 mg PO Q12H 07/12/19 05/15/20 History hydrochlorothiazide 25 mg tablet 12.5 mg PO DAILY 07/12/19 05/15/20 History lisinopril 20 mg tablet 20 mg PO DAILY 07/12/19 05/15/20 History meclizine 25 mg tablet 25 mg PO TID PRN 07/12/19 05/15/20 History nitroglycerin 0.3 mg sublingual 0.3 mg SUBLINGUAL Q5M PRN 07/12/19 05/15/20 History tablet nortriptyline 25 mg capsule 25 mg PO DAILY 07/12/19 05/15/20 History pantoprazole 40 mg tablet,delayed 40 mg PO DAILY tablet 07/12/19 05/15/20 History release Brilinta 60 mg PO BID 07/22/19 05/24/20 History aspirin 81 mg PO DAILY 07/22/19 05/15/20 History folic acid 800 mg PO DAILY 07/22/19 05/15/20 History albuterol sulfate 90 mcg/actuation 1 inhalation INHALATION Q4H PRN 10/04/19 05/15/20 Rx aerosol inhaler #6.7 gm tizanidine 2 mg tablet 2 mg PO TID PRN #60 tablet 01/05/20 05/15/20 Rx tramadol 50 mg tablet 50 mg PO DAILY PRN #30 tablet 01/05/20 05/15/20 Rx allopurinol 300 mg tablet 300 mg PO DAILY #30 tablet 02/08/20 05/15/20 Rx magnesium oxide 400 mg PO DAILY #30 cap 04/25/20 05/15/20 Rx acetaminophen [Tylenol Extra 500 mg PO Q4-6H PRN #7 tablet 05/07/20 05/15/20 Rx Strength] metformin 500 mg tablet 500 mg PO BID #60 tablet 05/18/20 05/24/20 Rx Patient hx anesthesia problems: none Family hx anesthesia problems: none PMFSH Past Medical History Medical History (Updated 05/24/20 @ 09:31 by Brent Dickinson DO) Adenomatous colon polyp Anemia CAD (coronary artery disease) Carotid stenosis, asymptomatic h/o intracranial cerebral stenosis, evaluated at [place] 05/2019, thought not to be symptomatic cont med tx. Collagenous colitis GERD (gastroesophageal reflux disease) Glaucoma Gout (~08/2019) HLD (hyperlipidemia) HTN (hypertension) Personal history of DVT (deep vein thrombosis) Prostate cancer Stenosis of infrarenal abdominal aorta due to arteriosclerosis Says his aorta is mildly enlarged Type 2 diabetes mellitus without complications Surgical History Surgical History H/O cardiac catheterization H/O cystoscopy H/O heart artery stent H/O rectal polypectomy History of prostatectomy Had prostate cancer, status post prostatectomy and later radiation therapy. Has an implanted device to help with urinary incontinence. S/P arthroscopic surgery of left knee Social History Social History Social History: The patient has 2 sons and is . He does not have a durable power director toxicology. Wishes to be a full code. 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
[2020-05-24 10:40] LABS: Glucose Point of Care 135 (65-105)
[2020-05-24 10:41] VITALS: BP 101/44; PULSE 83; RESP 14; O2SAT 95
[2020-05-24 10:51] VITALS: BP 91/46; PULSE 75; RESP 18; O2SAT 97
[2020-05-24 11:01] VITALS: BP 107/51; PULSE 64; RESP 13; O2SAT 100
[2020-05-24 11:11] VITALS: BP 116/51; PULSE 63; RESP 16; O2SAT 100
[2020-05-24 11:21] VITALS: BP 127/59; PULSE 64; RESP 18; O2SAT 100
== END 2020-05-24 11:48 | disposition home or self-care (01) ==
PROVIDERS: PCP Family Medicine; Visit Provider Internal Medicine Gastroenterology
PROC: 0DJ08ZZ Inspection of Upper Intestinal Tract, Via Natural or Artificial Opening Endoscopic (ICD-10-PCS; CPT 43235; principal; 2020-05-24 09:30)
DX: K52.9 Noninfective gastroenteritis and colitis, unspecified (principal); K57.30 Diverticulosis of large intestine without perforation or abscess without bleeding; K64.8 Other hemorrhoids; Z86.010 Personal history of colon polyps; K21.9 Gastro-esophageal reflux disease without esophagitis; K29.70 Gastritis, unspecified, without bleeding; K22.4 Dyskinesia of esophagus; I10 Essential (primary) hypertension; E78.5 Hyperlipidemia, unspecified; I25.10 Atherosclerotic heart disease of native coronary artery without angina pectoris; I25.2 Old myocardial infarction; E11.9 Type 2 diabetes mellitus without complications; M10.9 Gout, unspecified; H40.9 Unspecified glaucoma; Z95.5 Presence of coronary angioplasty implant and graft; Z85.46 Personal history of malignant neoplasm of prostate; Z86.718 Personal history of other venous thrombosis and embolism; Z87.891 Personal history of nicotine dependence; Z79.84 Long term (current) use of oral hypoglycemic drugs
CPT/HCPCS: 45380; 43239; 87081; 88305; J2704; J7120

== ENCOUNTER 2020-06-21 07:45 | Outpatient (CLI) | payer MEDICARE, SELFPAY ==
[2020-06-21 08:55] LABS: Basophils Absolute Auto 0.1 K/mm3 (0.0-0.1); Basophils Percent Auto 0.6 % (0.2-1.2); Eosinophils Absolute Auto 0.2 K/mm3 (0-0.3); Eosinophils Percent Auto 2.2 % (0-4.4); Hematocrit 34.2 % (42.0-52.0); Hemoglobin 11.2 g/dL (14.0-18.0); Immature Granulocyte Absolute 0.03 K/mm3 (0.00-0.031); Immature Granulocyte Percent A 0.4 % (0-0.5); Lymphocytes Percent Auto 23.1 % (18.3-44.2); Mean Corpuscular HGB Conc 32.7 g/dl (32-36); Mean Corpuscular Hemoglobin 31.7 pg (26-34); Mean Corpuscular Volume 96.9 fl (80-100); Mean Platelet Volume 10.9 fl (7.4-10.4); Monocytes Absolute Auto 0.8 K/mm3 (0.1-0.6); Monocytes Percent Auto 9.6 % (2.6-8.5); Neutrophils Percent Auto 64.1 % (45.5-73.1); Platelet Count Result 220 k/mm3 (150-375); Red Blood Count 3.53 M/mm3 (4.6-6.20); Red Cell Distribution Width 14.1 % (11.5-14.5); White Blood Count 7.8 K/mm3 (4.5-10.0)
[2020-06-21 09:06] LABS: Anion Gap 7 mmol/L (8-16); Blood Urea Nitrogen 24 mg/dL (9-20); Calcium 9.2 mg/dL (8.4-10.2); Carbon Dioxide 31 mmol/L (22-30); Chloride 102 mmol/L (98-107); Cholesterol 134 mg/dL (0-200); Estimated Glomerular Filt Rate 60; Glucose 133 mg/dL (75-110); HDL Direct 27 mg/dL; Magnesium 1.4 mg/dL (1.6-2.3); Potassium 4.4 mmol/L (3.4-5.0); Sodium 140 mmol/L (137-145); Triglycerides 150 mg/dL (<150); Uric Acid 6.7 mg/dL (3.5-8.5)
[2020-06-21 09:17] LABS: LDL Cholesterol Direct 75 mg/dL
[2020-06-21 12:25] LABS: MALB Creatinine Ratio < 4.4 mg/g (0-30); Microalbumin Urine Random < 6.0 mg/L (0-16.7)
== END 2020-06-21 07:46 | disposition home or self-care (01) ==
PROVIDERS: PCP Family Medicine; Visit Provider Family Medicine
DX: E83.42 Hypomagnesemia (principal); E78.2 Mixed hyperlipidemia; N28.9 Disorder of kidney and ureter, unspecified; M1A.09X0 Idiopathic chronic gout, multiple sites, without tophus (tophi); E11.9 Type 2 diabetes mellitus without complications
CPT/HCPCS: 36415; 80048; 80061; 82043; 83735; 84550; 85025

== ENCOUNTER 2020-06-30 18:36 | Emergency (ER) | payer MEDICARE, SELFPAY ==
--- NOTE | ~2020-06-30 | XR_ITS ---
EXAMINATION: XR chest 1V portable 06/30/2020 19:40 INDICATION: Cough, fever and body aches. Hypertension. Diabetes. PROCEDURE: AP portable chest COMPARISON: Comparison to multiple prior studies sequentially, with oldest reviewed study dated 07/01. FINDINGS: The lungs are clear. The cardiomediastinal silhouette is within normal limits. There are no pleural effusions. There is no pneumothorax suspected. IMPRESSION: 1: NO ACUTE CARDIOPULMONARY DISEASE. Reviewed, dictated and finalized at [facility].
[2020-06-30 18:38] VITALS: BP 156/70; PULSE 112; RESP 14; TEMP 37.4; O2SAT 100
--- NOTE | 2020-06-30 19:57 | ED.FEVER ---
HPI - Fever General Chief Complaint: Fever Stated Complaint: FEVER,BODY ACHES,COUGH Time Seen by Provider: 06/30/20 19:04 History of Present Illness HPI Narrative: Patient is a 69-year-old male who presents ER with cough. Symptoms began last night and have worsened throughout the day. Patient did develop a fever today. Cough is nonproductive. No chest pain or shortness of breath. No nausea/vomiting/diarrhea. No known sick contacts. Concerned she may have pneumonia. Related Data Home Medications Medication Instructions Recorded Confirmed alprazolam 0.5 mg tablet 0.5 mg PO TID PRN 07/12/19 06/12/20 amlodipine 5 mg tablet 10 mg PO DAILY 07/12/19 06/12/20 atorvastatin 40 mg tablet 40 mg PO DAILY 07/12/19 06/12/20 blood sugar diagnostic #10 each 07/12/19 06/12/20 blood-glucose meter #1 each 07/12/19 06/12/20 carvedilol 12.5 mg tablet 12.5 mg PO Q12H 07/12/19 06/12/20 lisinopril 20 mg tablet 20 mg PO DAILY 07/12/19 06/12/20 meclizine 25 mg tablet 25 mg PO TID PRN 07/12/19 06/12/20 nitroglycerin 0.3 mg sublingual 0.3 mg SUBLINGUAL Q5M PRN 07/12/19 06/12/20 tablet nortriptyline 25 mg capsule 25 mg PO DAILY 07/12/19 06/12/20 pantoprazole 40 mg tablet,delayed 40 mg PO DAILY tablet 07/12/19 06/12/20 release Brilinta 60 mg PO BID 07/22/19 06/12/20 aspirin 81 mg PO DAILY 07/22/19 06/12/20 folic acid 800 mg PO DAILY 07/22/19 06/12/20 furosemide 20 mg tablet 20 mg PO QAM 06/12/20 06/12/20 Allergies Allergy/AdvReac Type Severity Reaction Status Date / Time No Known Allergies Allergy Verified 06/12/20 08:50 Review of Systems Review of Systems: All systems reviewed & are unremarkable except as noted in HPI and below Constitutional: Constitutional: Denies chills, Denies fatigue and Reports fever(s) ENT: Denies nasal congestion and Reports sore throat Cardiovascular: Cardiovascular: Denies chest pain and Denies radiating jaw, neck or arm pain Respiratory: Respiratory: Reports cough, Denies dyspnea and Denies wheezing [facility] Past Medical History Medical History Adenomatous colon polyp Anemia CAD (coronary artery disease) Carotid stenosis, asymptomatic h/o intracranial cerebral stenosis, evaluated at [place] 05/2019, thought not to be symptomatic cont med tx. Collagenous colitis GERD (gastroesophageal reflux disease) Glaucoma Gout (~08/2019) Groin discomfort HLD (hyperlipidemia) HTN (hypertension) Personal history of DVT (deep vein thrombosis) Prostate cancer Stenosis of infrarenal abdominal aorta due to arteriosclerosis Says his aorta is mildly enlarged Type 2 diabetes mellitus without complications Surgical History Surgical History H/O cardiac catheterization H/O cystoscopy H/O heart artery stent H/O rectal polypectomy History of prostatectomy Had prostate cancer, status post prostatectomy and later radiation therapy. Has an implanted device to help with urinary incontinence. S/P arthroscopic surgery of left knee Family History Family History Father , of lung cancer age 83 Hypertension Sibling Hypertension Mother Family history of malignant neoplasm of breast in first degree relative Breast cancer of breast cancer age 37 Other Diabetes mellitus Family history of cardiovascular disease Family history of elevated blood lipids Family history of malignant neoplasm Social History Social History Social History: The patient has 2 sons and is . He does not have a durable power deputy attorney general. Wishes to be a full code. 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
[2020-06-30 19:58] VITALS: BP 157/85; PULSE 98; RESP 18; O2SAT 100
[2020-06-30 20:13] VITALS: BP 154/82; PULSE 98; RESP 18; TEMP 36.7; O2SAT 100
[2020-07-01 13:10] LABS: SARS-CoV-2 RNA PCR Positive
== END 2020-06-30 20:14 | disposition home or self-care (01) ==
PROVIDERS: Emergency Provider Emergency Medicine; PCP Family Medicine
DX: U07.1 COVID-19 (principal); I25.10 Atherosclerotic heart disease of native coronary artery without angina pectoris; E11.9 Type 2 diabetes mellitus without complications; E78.5 Hyperlipidemia, unspecified; I10 Essential (primary) hypertension; H40.9 Unspecified glaucoma; K21.9 Gastro-esophageal reflux disease without esophagitis; M10.9 Gout, unspecified; Z86.718 Personal history of other venous thrombosis and embolism; Z85.46 Personal history of malignant neoplasm of prostate; Z79.84 Long term (current) use of oral hypoglycemic drugs; Z90.79 Acquired absence of other genital organ(s); Z92.3 Personal history of irradiation; Z87.19 Personal history of other diseases of the digestive system; Z87.891 Personal history of nicotine dependence
CPT/HCPCS: 71045; 87635; 99283; C9803; U0003

== ENCOUNTER 2020-07-10 12:09 | Outpatient (CLI) | payer MEDICARE, SELFPAY ==
[2020-07-10 12:42] LABS: Magnesium 1.8 mg/dL (1.6-2.3)
== END 2020-07-10 12:10 | disposition home or self-care (01) ==
LOC: ANHLAB 12:12
PROVIDERS: PCP Family Medicine; Visit Provider Nurse Practitioner Family
DX: E83.42 Hypomagnesemia (principal)
CPT/HCPCS: 36415; 83735

== ENCOUNTER 2020-08-27 15:44 | Outpatient (CLI) | payer MEDICARE, SELFPAY ==
--- NOTE | ~2020-08-27 | XR_ITS ---
XR chest 2V DATE: 08/27/2020 16:00 INDICATION: Cough for one month. History of hypertension. TECHNIQUE: PA and lateral views COMPARISON: 06/30/2020 portable AP chest 07/22/2019 CT pulmonary scan 07/22/2019 2 view chest FINDINGS: Normal heart size. There is extensive thoracic and abdominal aortic calcification. The pulm onary arteries are chronically prominent in size, particularly left; pulmonary hypertension is not ex cluded. No pulmonary infiltrate or consolidation, pleural effusion or pulmonary vascular congestion or pneumo thorax. IMPRESSION: No active cardiopulmonary disease Reviewed, dictated and finalized at [facility]. NICS MANAGER
== END 2020-08-27 15:45 | disposition home or self-care (01) ==
PROVIDERS: PCP Family Medicine; Visit Provider Nurse Practitioner Family
DX: R05 Cough (principal); I10 Essential (primary) hypertension
CPT/HCPCS: 71046

== ENCOUNTER 2020-09-19 17:09 | Outpatient (CLI) | payer MEDICARE, SELFPAY ==
--- NOTE | 2020-09-12 14:32 | PC.NURSE ---
Talked with Dr. Dickinson @1210 about patient having previous bowel obstruction. Dr. Dickinson cancelled the [facility] due to this prior history. @[id number] Called patient to update him on Dr. Dickinson's intention to cancel case. Patient states that he understands.
--- NOTE | ~2020-09-19 | US_ITS ---
EXAMINATION: US venous doppler [facility] DATE: 09/19/2020 17:39 INDICATION: Lower limb pain TECHNIQUE: [place] scale images without and with compression and Doppler images of the bilateral lower e xtremity veins were obtained. COMPARISON: 04/04/2020 FINDINGS: The right common femoral vein, profunda femoral vein, femoral vein, popliteal vein, peroneal trunk, p osterior tibial veins, and greater saphenous vein are patent. The left common femoral vein, profunda femoral vein, femoral vein, popliteal vein, peroneal trunk, po sterior tibial veins, and greater saphenous vein are patent. IMPRESSION: 1. Patent bilateral lower extremity veins. No evidence of deep venous thrombosis. Reviewed, dictated and finalized at [facility]. [employer]POR[employer]S IMPRESSION: 1. Patent bilateral lower extremity veins. No evidence of deep venous thrombosi s.
== END 2020-09-19 17:10 | disposition home or self-care (01) ==
PROVIDERS: PCP Family Medicine; Visit Provider Internal Medicine Gastroenterology
DX: M79.605 Pain in left leg (principal)
CPT/HCPCS: 93970

== ENCOUNTER 2020-09-25 10:42 | Outpatient (RCR) | payer MEDICARE, SELFPAY ==
[2020-09-25 11:25] LABS: Basophils Percent Auto 0.5 % (0.2-1.2); Eosinophils Absolute Auto 0.2 K/mm3 (0-0.3); Eosinophils Percent Auto 2.1 % (0-4.4); Hematocrit 32.8 % (42.0-52.0); Immature Granulocyte Absolute 0.04 K/mm3 (0.00-0.031); Immature Granulocyte Percent A 0.5 % (0-0.5); Lymphocytes Percent Auto 14.6 % (18.3-44.2); Mean Corpuscular HGB Conc 33.5 g/dl (32-36); Mean Corpuscular Hemoglobin 31.6 pg (26-34); Mean Corpuscular Volume 94.3 fl (80-100); Mean Platelet Volume 10.2 fl (7.4-10.4); Monocytes Absolute Auto 0.5 K/mm3 (0.1-0.6); Monocytes Percent Auto 6.1 % (2.6-8.5); Neutrophils Absolute Auto 5.8 K/mm3 (1.3-6.7); Neutrophils Percent Auto 76.2 % (45.5-73.1); Platelet Count Result 212 k/mm3 (150-375); Red Blood Count 3.48 M/mm3 (4.6-6.20); Red Cell Distribution Width 14.5 % (11.5-14.5); White Blood Count 7.6 K/mm3 (4.5-10.0)
[2020-09-25 11:39] LABS: Rheumatoid Factor 46.3 IU/ML (<12)
[2020-09-25 11:40] LABS: CRP 0.7 mg/dL (<1.0)
[2020-09-25 12:14] LABS: Erythrocyte Sedimentation Rate > 140 mm/hr (0-20)
[2020-09-27 19:54] LABS: HLA B27 Negative (Negative)
== END 2020-12-24 23:59 | disposition home or self-care (01) ==
LOC: ANHLAB 10:42
PROVIDERS: PCP Family Medicine; Visit Provider Podiatrist Foot & Ankle Surgery
DX: M06.9 Rheumatoid arthritis, unspecified (principal); D50.9 Iron deficiency anemia, unspecified; R05 Cough
CPT/HCPCS: 36415; 84550; 85025; 85652; 86140; 86430; 86812

== ENCOUNTER 2020-09-26 10:30 | Outpatient (CLI) | payer MEDICARE, SELFPAY ==
[2020-10-01 12:31] LABS: Anti Nuclear Antibody Titer 1:40 (Negative)
== END 2020-09-26 10:31 | disposition home or self-care (01) ==
PROVIDERS: PCP Family Medicine; Visit Provider Podiatrist Foot & Ankle Surgery
DX: M10.9 Gout, unspecified (principal); M06.9 Rheumatoid arthritis, unspecified
CPT/HCPCS: 36415; 86038; 86039

== ENCOUNTER 2020-10-07 15:26 | Emergency (ER) | payer MEDICARE, SELFPAY ==
[2020-10-07 15:28] VITALS: BP 122/51; PULSE 76; RESP 20; TEMP 36.8; O2SAT 100
--- NOTE | 2020-10-07 16:29 | ED.WOUNDLAC ---
HPI - Wound/Laceration General Chief Complaint: Wound/Laceration Stated Complaint: wound to right forearm Time Seen by Provider: 10/07/20 15:38 Source: patient Mode of arrival: ambulatory Limitations: no limitations History of Present Illness HPI narrative: This is a 70-year-old male that presents the emergency department for skin tear sustained 2 days ago. Reports he scraped his left forearm on a metal table. Reports he did clean the area well after the incident. Reports since he has had trouble controlling the bleeding. He is unsure of his last tetanus vaccine. Denies fever, erythema, or edema. Related Data Home Medications Medication Instructions Recorded Confirmed amlodipine 5 mg tablet 10 mg PO DAILY 07/12/19 09/06/20 atorvastatin 40 mg tablet 40 mg PO DAILY 07/12/19 09/06/20 blood sugar diagnostic #10 each 07/12/19 09/06/20 blood-glucose meter #1 each 07/12/19 09/06/20 carvedilol 12.5 mg tablet 12.5 mg PO Q12H 07/12/19 09/06/20 lisinopril 20 mg tablet 20 mg PO DAILY 07/12/19 09/06/20 meclizine 25 mg tablet 25 mg PO TID PRN 07/12/19 09/06/20 nitroglycerin 0.3 mg sublingual 0.3 mg SUBLINGUAL Q5M PRN 07/12/19 09/06/20 tablet nortriptyline 25 mg capsule 25 mg PO DAILY 07/12/19 09/06/20 pantoprazole 40 mg tablet,delayed 40 mg PO DAILY tablet 07/12/19 09/06/20 release Brilinta 60 mg PO BID 07/22/19 09/06/20 aspirin 81 mg PO DAILY 07/22/19 09/06/20 folic acid 800 mg PO DAILY 07/22/19 09/06/20 furosemide 20 mg tablet 20 mg PO QAM 06/12/20 09/06/20 Allergies Allergy/AdvReac Type Severity Reaction Status Date / Time No Known Allergies Allergy Verified 09/19/20 15:44 Review of Systems Review of Systems: Narrative: CONSTITUTIONAL: Denies fever SKIN: Reports laceration All systems reviewed & are unremarkable except as noted in HPI and below PMFSH Past Medical History Medical History 1st MTP arthritis Adenomatous colon polyp Anemia BMI 25.0-25.9,adult CAD (coronary artery disease) Carotid stenosis, asymptomatic h/o intracranial cerebral stenosis, evaluated at [place] 05/2019, thought not to be symptomatic cont med tx. Chills Collagenous colitis Colonoscopy planned Depression Fever GERD (gastroesophageal reflux disease) Glaucoma Gout (~08/2019) Groin discomfort High cholesterol HLD (hyperlipidemia) HTN (hypertension) Light headedness Personal history of DVT (deep vein thrombosis) Prostate cancer Shortness of breath Stenosis of infrarenal abdominal aorta due to arteriosclerosis Says his aorta is mildly enlarged Tendinitis of both rotator cuffs Type 2 diabetes mellitus without complications Wears glasses Surgical History Surgical History H/O cardiac catheterization H/O cystoscopy H/O heart artery stent H/O rectal polypectomy History of colonoscopy 2019 History of prostatectomy Had prostate cancer, status post prostatectomy and later radiation therapy. Has an implanted device to help with urinary incontinence. S/P arthroscopic surgery of left knee Family History Family History Father , of lung cancer age 83 Hypertension Sibling Hypertension Mother Family history of malignant neoplasm of breast in first degree relative Breast cancer of breast cancer age 37 Sibling No problems noted. Other Diabetes mellitus Family history of cardiovascular disease Family history of elevated blood lipids Family history of malignant neoplasm Social History Social History Social History: The patient has 2 sons and is . He does not have a durable power immigration attorney. Wishes to be a full code. 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
[2020-10-07] MEDS: TETANUS,DIPHTHERIA,AC PERTUSSIS ADULT (0.5 ML) BOOSTRIX IM (16:33)
== END 2020-10-07 16:45 | disposition home or self-care (01) ==
PROVIDERS: Emergency Provider Emergency Medicine; PCP Family Medicine
DX: S51.812A Laceration without foreign body of left forearm, initial encounter (principal); Z23 Encounter for immunization; E11.9 Type 2 diabetes mellitus without complications; I25.10 Atherosclerotic heart disease of native coronary artery without angina pectoris; E78.5 Hyperlipidemia, unspecified; I10 Essential (primary) hypertension; H40.9 Unspecified glaucoma; M10.9 Gout, unspecified; K21.9 Gastro-esophageal reflux disease without esophagitis; F32.9 Major depressive disorder, single episode, unspecified; Z86.010 Personal history of colon polyps; Z86.718 Personal history of other venous thrombosis and embolism; Z85.46 Personal history of malignant neoplasm of prostate; Z79.84 Long term (current) use of oral hypoglycemic drugs; Z79.82 Long term (current) use of aspirin; Z95.5 Presence of coronary angioplasty implant and graft; Z90.79 Acquired absence of other genital organ(s); Z87.891 Personal history of nicotine dependence; W26.8XXA Contact with other sharp object(s), not elsewhere classified, initial encounter
CPT/HCPCS: 12001; 90471; 90715; 99282

== ENCOUNTER 2020-10-09 02:53 | Emergency (ER) | payer MEDICARE, SELFPAY ==
[2020-10-09 02:56] VITALS: BP 156/78; PULSE 85; RESP 20; TEMP 36.7; O2SAT 100
--- NOTE | 2020-10-09 03:12 | ED.UPPEXIN ---
HPI - Extremity Injury (Upper) General Chief Complaint: Extremity Injury, Upper Stated Complaint: left arm skin tear -bleeding Time Seen by Provider: 10/09/20 03:00 History of Present Illness HPI narrative: Patient is a 70-year-old male who presents ER with bleeding from a left arm wound. Injured it about 4 days ago on a metal table. Was seen on 10/07/2020 and had Surgicel applied to it with dressing. He was removing another dressing and started oozing from a small area. No redness or pain to the area. No fevers or chills or sweats. No additional injury. Related Data Home Medications Medication Instructions Recorded Confirmed amlodipine 5 mg tablet 10 mg PO DAILY 07/12/19 09/06/20 atorvastatin 40 mg tablet 40 mg PO DAILY 07/12/19 09/06/20 blood sugar diagnostic #10 each 07/12/19 09/06/20 blood-glucose meter #1 each 07/12/19 09/06/20 carvedilol 12.5 mg tablet 12.5 mg PO Q12H 07/12/19 09/06/20 lisinopril 20 mg tablet 20 mg PO DAILY 07/12/19 09/06/20 meclizine 25 mg tablet 25 mg PO TID PRN 07/12/19 09/06/20 nitroglycerin 0.3 mg sublingual 0.3 mg SUBLINGUAL Q5M PRN 07/12/19 09/06/20 tablet nortriptyline 25 mg capsule 25 mg PO DAILY 07/12/19 09/06/20 pantoprazole 40 mg tablet,delayed 40 mg PO DAILY tablet 07/12/19 09/06/20 release Brilinta 60 mg PO BID 07/22/19 09/06/20 aspirin 81 mg PO DAILY 07/22/19 09/06/20 folic acid 800 mg PO DAILY 07/22/19 09/06/20 furosemide 20 mg tablet 20 mg PO QAM 06/12/20 09/06/20 Allergies Allergy/AdvReac Type Severity Reaction Status Date / Time No Known Allergies Allergy Verified 10/09/20 02:59 Review of Systems Constitutional: Constitutional: Denies chills and Denies fever(s) Integumentary/Breasts: Skin/Breast: Denies pruritus and Denies erythema Comments: skin tear left forearm PMFSH Past Medical History Medical History 1st MTP arthritis Adenomatous colon polyp Anemia BMI 25.0-25.9,adult CAD (coronary artery disease) Carotid stenosis, asymptomatic h/o intracranial cerebral stenosis, evaluated at [place] 05/2019, thought not to be symptomatic cont med tx. Chills Collagenous colitis Colonoscopy planned Depression Fever GERD (gastroesophageal reflux disease) Glaucoma Gout (~08/2019) Groin discomfort High cholesterol HLD (hyperlipidemia) HTN (hypertension) Light headedness Personal history of DVT (deep vein thrombosis) Prostate cancer Shortness of breath Stenosis of infrarenal abdominal aorta due to arteriosclerosis Says his aorta is mildly enlarged Tendinitis of both rotator cuffs Type 2 diabetes mellitus without complications Wears glasses Surgical History Surgical History H/O cardiac catheterization H/O cystoscopy H/O heart artery stent H/O rectal polypectomy History of colonoscopy 2019 History of prostatectomy Had prostate cancer, status post prostatectomy and later radiation therapy. Has an implanted device to help with urinary incontinence. S/P arthroscopic surgery of left knee Family History Family History Father , of lung cancer age 83 Hypertension Sibling Hypertension Mother Family history of malignant neoplasm of breast in first degree relative Breast cancer of breast cancer age 37 Sibling No problems noted. Other Diabetes mellitus Family history of cardiovascular disease Family history of elevated blood lipids Family history of malignant neoplasm Social History Social History Social History: The patient has 2 sons and is . 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 Wishes to be a full code. 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
[2020-10-09 03:39] VITALS: BP 144/87; PULSE 78; RESP 16; TEMP 36.7; O2SAT 100
== END 2020-10-09 03:39 | disposition home or self-care (01) ==
PROVIDERS: Emergency Provider Emergency Medicine; PCP Family Medicine
DX: S51.812A Laceration without foreign body of left forearm, initial encounter (principal); E11.9 Type 2 diabetes mellitus without complications; I25.10 Atherosclerotic heart disease of native coronary artery without angina pectoris; E78.5 Hyperlipidemia, unspecified; I10 Essential (primary) hypertension; H40.9 Unspecified glaucoma; M10.9 Gout, unspecified; K21.9 Gastro-esophageal reflux disease without esophagitis; F32.9 Major depressive disorder, single episode, unspecified; Z86.010 Personal history of colon polyps; Z86.718 Personal history of other venous thrombosis and embolism; Z85.46 Personal history of malignant neoplasm of prostate; Z79.84 Long term (current) use of oral hypoglycemic drugs; Z79.82 Long term (current) use of aspirin; Z95.5 Presence of coronary angioplasty implant and graft; Z90.79 Acquired absence of other genital organ(s); Z87.891 Personal history of nicotine dependence; X58.XXXA Exposure to other specified factors, initial encounter
CPT/HCPCS: 99282

== ENCOUNTER 2020-12-06 11:50 | Outpatient (RCR) | payer MEDICARE, SELFPAY ==
[2020-12-06 12:19] LABS: Basophils Percent Auto 0.5 % (0.2-1.2); Eosinophils Absolute Auto 0.2 K/mm3 (0-0.3); Eosinophils Percent Auto 2.3 % (0-4.4); Hematocrit 34.5 % (42.0-52.0); Hemoglobin 11.8 g/dL (14.0-18.0); Immature Granulocyte Absolute 0.03 K/mm3 (0.00-0.031); Immature Granulocyte Percent A 0.4 % (0-0.5); Lymphocytes Absolute Auto 1.78 K/mm3 (0.9-3.2); Lymphocytes Percent Auto 22.4 % (18.3-44.2); Mean Corpuscular HGB Conc 34.2 g/dl (32-36); Mean Corpuscular Hemoglobin 31.9 pg (26-34); Mean Corpuscular Volume 93.2 fl (80-100); Mean Platelet Volume 10.6 fl (7.4-10.4); Monocytes Absolute Auto 0.6 K/mm3 (0.1-0.6); Monocytes Percent Auto 7.4 % (2.6-8.5); Neutrophils Absolute Auto 5.3 K/mm3 (1.3-6.7); Platelet Count Result 211 k/mm3 (150-375)
== END 2021-03-06 23:59 | disposition home or self-care (01) ==
LOC: ANHLAB 11:50
PROVIDERS: PCP Family Medicine; Visit Provider Internal Medicine Gastroenterology
DX: D50.9 Iron deficiency anemia, unspecified (principal)
CPT/HCPCS: 36415; 85025

== ENCOUNTER 2021-03-13 10:43 | Outpatient (RCR) | payer MEDICARE, SELFPAY ==
[2021-03-13 11:05] LABS: Basophils Percent Auto 0.5 % (0.2-1.2); Eosinophils Absolute Auto 0.2 K/mm3 (0-0.3); Eosinophils Percent Auto 2.2 % (0-4.4); Hematocrit 34.9 % (42.0-52.0); Hemoglobin 11.7 g/dL (14.0-18.0); Immature Granulocyte Absolute 0.05 K/mm3 (0.00-0.031); Immature Granulocyte Percent A 0.6 % (0-0.5); Lymphocytes Absolute Auto 1.48 K/mm3 (0.9-3.2); Lymphocytes Percent Auto 17.9 % (18.3-44.2); Mean Corpuscular HGB Conc 33.5 g/dl (32-36); Mean Corpuscular Hemoglobin 32.1 pg (26-34); Mean Corpuscular Volume 95.9 fl (80-100); Monocytes Absolute Auto 0.7 K/mm3 (0.1-0.6); Monocytes Percent Auto 8.7 % (2.6-8.5); Neutrophils Absolute Auto 5.8 K/mm3 (1.3-6.7); Neutrophils Percent Auto 70.1 % (45.5-73.1); Platelet Count Result 200 k/mm3 (150-375); Red Blood Count 3.64 M/mm3 (4.6-6.20); Red Cell Distribution Width 14.3 % (11.5-14.5); White Blood Count 8.3 K/mm3 (4.5-10.0)
== END 2021-06-11 23:59 | disposition home or self-care (01) ==
LOC: ANHLAB 10:43
PROVIDERS: PCP Family Medicine; Visit Provider Internal Medicine Gastroenterology
DX: D50.9 Iron deficiency anemia, unspecified (principal)
CPT/HCPCS: 36415; 85025

== ENCOUNTER 2021-04-11 09:17 | Emergency (ER) | payer MEDICARE, SELFPAY ==
[2021-04-11] VITALS (27 sets, daily range): BP systolic 101–140; BP diastolic 48–65; PULSE 82–97; RESP 14–23; TEMP 37.1; O2SAT 95–100
--- NOTE | ~2021-04-11 | XR_ITS ---
EXAMINATION: XR chest 2V DATE: 04/11/2021 09:59 INDICATION: Shortness of breath TECHNIQUE: Frontal and lateral views of the chest are obtained COMPARISON: 08/27/2020 FINDINGS: The lungs are free of acute opacities. There is no pleural effusion or pneumothorax. The ca rdiomediastinal silhouette is normal. There is mild thoracic spondylosis. Calcified atherosclerosis i s noted. IMPRESSION: 1. No acute cardiopulmonary abnormality. Reviewed, dictated and finalized at location B.
--- NOTE | 2021-04-11 09:35 | ECG_ITS ---
Measurements Intervals [place] Rate: 85 P: 25 WA: 176 QRS: -15 QRSD: 108 T: 28 QT: 364 QTc: 434 Interpretive Statements SINUS RHYTHM DELAYED PRECORDIAL R/S TRANSITION BASELINE ARTIFACT- II, III, AVF, V1, V3-V6 BORDERLINE ECG Electronically Signed On 04-11-2021 12:53:49 CDT by Jovanny Mcduffie D.O.
--- NOTE | 2021-04-11 09:59 | PC.NURSE ---
Pt to XRAY via stretcher at this time.
[2021-04-11 10:00] LABS: Basophils Absolute Auto 0.1 K/mm3 (0.0-0.1); Basophils Percent Auto 0.6 % (0.2-1.2); Eosinophils Absolute Auto 0.1 K/mm3 (0-0.3); Eosinophils Percent Auto 1.6 % (0-4.4); Hematocrit 36.4 % (42.0-52.0); Hemoglobin 11.9 g/dL (14.0-18.0); Immature Granulocyte Absolute 0.04 K/mm3 (0.00-0.031); Immature Granulocyte Percent A 0.5 % (0-0.5); Lymphocytes Absolute Auto 1.63 K/mm3 (0.9-3.2); Lymphocytes Percent Auto 18.8 % (18.3-44.2); Mean Corpuscular HGB Conc 32.7 g/dl (32-36); Mean Corpuscular Hemoglobin 31.4 pg (26-34); Mean Platelet Volume 10.6 fl (7.4-10.4); Monocytes Absolute Auto 0.9 K/mm3 (0.1-0.6); Monocytes Percent Auto 10.5 % (2.6-8.5); Neutrophils Absolute Auto 5.9 K/mm3 (1.3-6.7); Platelet Count Result 192 k/mm3 (150-375); Red Blood Count 3.79 M/mm3 (4.6-6.20); White Blood Count 8.7 K/mm3 (4.5-10.0)
[2021-04-11 10:09] LABS: Anion Gap 10 mmol/L (8-16); Blood Urea Nitrogen 38 mg/dL (9-20); Calcium 9.7 mg/dL (8.4-10.2); Carbon Dioxide 24 mmol/L (22-30); Chloride 99 mmol/L (98-107); Estimated CRCL calculation 29 ml/min; Estimated Glomerular Filt Rate 30; Glucose 214 mg/dL (65-110); Sodium 133 mmol/L (137-145)
[2021-04-11] MEDS: SODIUM CHLORIDE 0.9% IV 500 ML 999 ML IV CONT ×2 (11:42→13:32)
--- NOTE | 2021-04-11 11:47 | PC.NURSE ---
called lab and talked to Katia added on a Trop 1 and Hepatic at 1145
--- NOTE | 2021-04-11 11:59 | ECG_ITS ---
Measurements Intervals [place] Rate: 89 P: 31 CT: 162 QRS: -7 QRSD: 96 T: 49 QT: 343 QTc: 418 Interpretive Statements SINUS RHYTHM BORDERLINE R WAVE PROGRESSION, ANTERIOR LEADS BASELINE ARTIFACT- I, III, AVL BORDERLINE ECG Electronically Signed On 04-12-2021 15:25:10 CDT by Jovanny Mcudffie D.O.
--- NOTE | 2021-04-11 12:14 | ED.RECABL ---
HPI - Recheck/Abnormal Lab/Rx General Chief Complaint: Recheck/Abnormal Lab/Rx Stated Complaint: low blood pressure, SOB Time Seen by Provider: 04/11/21 11:06 History of Present Illness HPI narrative: Patient presents with concern for low blood pressure. Reports he has had low blood pressure for the past month most noted in the morning. Reports his primary care doctor has also been adjusting his blood pressure medication over this time. However the past few days he feels like his symptoms are getting worse he feels more lightheaded dizzy and short of breath particularly when he stands up to walk around. Denies fevers, cough, congestion. reports mild chest pain when he has episodes of lightheadedness. Denies any nausea vomiting or urinary symptoms. Related Data Home Medications Medication Instructions Recorded Confirmed atorvastatin 40 mg tablet 40 mg PO DAILY 07/12/19 03/28/21 blood sugar diagnostic #10 each 07/12/19 03/28/21 blood-glucose meter #1 each 07/12/19 03/28/21 carvedilol 12.5 mg tablet 12.5 mg PO Q12H 07/12/19 03/28/21 lisinopril 20 mg tablet 20 mg PO DAILY 07/12/19 03/28/21 nitroglycerin 0.3 mg sublingual 0.3 mg SUBLINGUAL Q5M PRN 07/12/19 03/28/21 tablet pantoprazole 40 mg tablet,delayed 40 mg PO DAILY tablet 07/12/19 03/28/21 release Brilinta 60 mg PO BID 07/22/19 03/28/21 aspirin 81 mg PO DAILY 07/22/19 03/28/21 Allergies Allergy/AdvReac Type Severity Reaction Status Date / Time No Known Allergies Allergy Verified 04/11/21 09:48 Review of Systems Review of Systems: CONSTITUTIONAL: Denies fever, chills, or sweats. EYES: Denies visual changes, redness, or discharge. ENT: Denies rhinorrhea, congestion, sore throat, or otalgia. CARDIOVASCULAR: Denies palpitations, or edema. RESPIRATORY: Reports intermittent cough and shortness of breath GASTROINTESTINAL: Denies abdominal pain, nausea, vomiting, or diarrhea. GENITOURINARY: Denies dysuria or hematuria. SKIN: Denies rash or itching. MUSCULOSKELETAL: Denies back pain, joint pain, or myalgia. NEUROLOGIC: Denies headache, numbness, dizziness, or weakness. PSYCHIATRIC: Denies anxiety or depression. All systems reviewed & are unremarkable except as noted in HPI and below PMFSH Past Medical History Medical History 1st MTP arthritis Adenomatous colon polyp Anemia BMI 25.0-25.9,adult BMI 25.0-25.9,adult BMI 26.0-26.9,adult BMI between 19-24,adult CAD (coronary artery disease) Carotid stenosis, asymptomatic h/o intracranial cerebral stenosis, evaluated at [place] 05/2019, thought not to be symptomatic cont med tx. Chills Collagenous colitis Colonoscopy planned Depression Fever GERD (gastroesophageal reflux disease) Glaucoma Gout (~08/2019) Groin discomfort High cholesterol HLD (hyperlipidemia) HTN (hypertension) Left shoulder pain Light headedness Personal history of DVT (deep vein thrombosis) Prostate cancer Right shoulder pain Shortness of breath Stenosis of infrarenal abdominal aorta due to arteriosclerosis Says his aorta is mildly enlarged Tendinitis of both rotator cuffs Type 2 diabetes mellitus without complications Wears glasses Surgical History Surgical History H/O cardiac catheterization H/O cystoscopy H/O heart artery stent H/O rectal polypectomy History of cataract surgery History of colonoscopy 2019 History of prostatectomy Had prostate cancer, status post prostatectomy and later radiation therapy. Has an implanted device to help with urinary incontinence. S/P arthroscopic surgery of left knee Family History Family History Father , of lung cancer age 83 Hypertension Sibling Hypertension Mother Family history of malignant neoplasm of breast in first degree relative Breast cancer of breast cancer age 37 Sibling
[2021-04-11 12:26] LABS: Prothrombin Time 12.9 Seconds (11.1-14.7)
[2021-04-11 12:27] LABS: Add Urine Microscopic? NO; Appearance Urine Clear (Clear); Bilirubin Urine Negative (Negative); Blood Urine Negative (Negative); Color Urine Yellow (Yellow); Glucose Urine UA Negative (Negative); Ketones Urine Negative (Negative); Leukocyte Esterase Ur Negative LEU/UL (Negative); Nitrate Urine Negative (Negative); Protein Urine Negative (Negative); Specific Grav Ur 1.017 (1.001-1.035); Urobilinogen Urine Negative mg/dL (<2.0)
[2021-04-11 12:27] LABS: Partial Thromboplastin Time 27.4 SECONDS (22.3-36.8)
[2021-04-11 13:16] LABS: Alanine Aminotransferase 31 U/L (4-50); Alkaline Phosphatase 102 U/L (38-126); Aspartate Amino Transferase 38 U/L (17-59); Bilirubin,Total 0.7 mg/dL (0.2-1.3)
[2021-04-11 13:28] LABS: Troponin I < 0.012 ng/mL (0.000-0.034)
== END 2021-04-11 14:26 | disposition home or self-care (01) ==
PROVIDERS: Emergency Medicine; Emergency Provider Emergency Medicine; PCP Family Medicine
DX: R42 Dizziness and giddiness (principal); N17.9 Acute kidney failure, unspecified; I10 Essential (primary) hypertension; I25.10 Atherosclerotic heart disease of native coronary artery without angina pectoris; E78.5 Hyperlipidemia, unspecified; F17.210 Nicotine dependence, cigarettes, uncomplicated; Z86.718 Personal history of other venous thrombosis and embolism; Z85.46 Personal history of malignant neoplasm of prostate; Z86.2 Personal history of diseases of the blood and blood-forming organs and certain disorders involving the immune mechanism; Z79.899 Other long term (current) drug therapy; Z79.82 Long term (current) use of aspirin
CPT/HCPCS: 36415; 71046; 80048; 80076; 81003; 84484; 85025; 85610; 85730; 93005; 96360; 96361; 99284; J7040

== ENCOUNTER 2021-04-25 11:41 | Outpatient (CLI) | payer MEDICARE, SELFPAY ==
[2021-04-25 12:55] LABS: Hematocrit 35.8 % (42.0-52.0); Hemoglobin 11.5 g/dL (14.0-18.0); Mean Corpuscular HGB Conc 32.1 g/dl (32-36); Mean Corpuscular Hemoglobin 31.9 pg (26-34); Mean Corpuscular Volume 99.2 fl (80-100); Mean Platelet Volume 10.8 fl (7.4-10.4); Platelet Count Result 225 k/mm3 (150-375); Red Blood Count 3.61 M/mm3 (4.6-6.20); Red Cell Distribution Width 13.8 % (11.5-14.5); White Blood Count 12.1 K/mm3 (4.5-10.0)
[2021-04-25 13:12] LABS: Anion Gap 8 mmol/L (8-16); Blood Urea Nitrogen 35 mg/dL (9-20); Calcium 9.9 mg/dL (8.4-10.2); Carbon Dioxide 25 mmol/L (22-30); Chloride 103 mmol/L (98-107); Estimated Glomerular Filt Rate 46; Glucose 149 mg/dL (65-110); Potassium 4.3 mmol/L (3.4-5.0); Sodium 136 mmol/L (137-145)
[2021-04-25 22:43] LABS: Iron 117 ug/dL (49-181)
[2021-04-25 22:53] LABS: Percent Iron Saturation 40 % (20-50)
== END 2021-04-25 11:42 | disposition home or self-care (01) ==
PROVIDERS: PCP Family Medicine; Visit Provider Nurse Practitioner Family
DX: D64.9 Anemia, unspecified (principal); R30.0 Dysuria; N28.9 Disorder of kidney and ureter, unspecified
CPT/HCPCS: 36415; 80048; 83540; 83550; 85027

== ENCOUNTER 2021-05-01 10:40 | Outpatient (CLI) | payer MEDICARE, SELFPAY ==
[2021-05-06 16:51] LABS: Calprotectin, Stool 9 mcg/g
== END 2021-05-01 10:41 | disposition home or self-care (01) ==
PROVIDERS: PCP Family Medicine; Visit Provider Physician Assistant Medical
DX: K52.831 Collagenous colitis (principal); R19.7 Diarrhea, unspecified
CPT/HCPCS: 83993

== ENCOUNTER 2021-06-06 06:54 | Outpatient (CLI) | payer MEDICARE, SELFPAY ==
[2021-06-06 07:24] LABS: Basophils Absolute Auto 0.1 K/mm3 (0.0-0.1); Basophils Percent Auto 0.5 % (0.2-1.2); Eosinophils Absolute Auto 0.1 K/mm3 (0-0.3); Eosinophils Percent Auto 1.4 % (0-4.4); Hematocrit 37.2 % (42.0-52.0); Hemoglobin 12.3 g/dL (14.0-18.0); Immature Granulocyte Absolute 0.06 K/mm3 (0.00-0.031); Immature Granulocyte Percent A 0.6 % (0-0.5); Lymphocytes Absolute Auto 2.01 K/mm3 (0.9-3.2); Lymphocytes Percent Auto 20.8 % (18.3-44.2); Mean Corpuscular HGB Conc 33.1 g/dl (32-36); Mean Corpuscular Hemoglobin 32.5 pg (26-34); Mean Corpuscular Volume 98.2 fl (80-100); Mean Platelet Volume 9.9 fl (7.4-10.4); Monocytes Absolute Auto 0.8 K/mm3 (0.1-0.6); Monocytes Percent Auto 8.5 % (2.6-8.5); Neutrophils Absolute Auto 6.6 K/mm3 (1.3-6.7); Neutrophils Percent Auto 68.2 % (45.5-73.1); Platelet Count Result 185 k/mm3 (150-375); Red Blood Count 3.79 M/mm3 (4.6-6.20); White Blood Count 9.7 K/mm3 (4.5-10.0)
[2021-06-06 07:37] LABS: Anion Gap 7 mmol/L (8-16); Blood Urea Nitrogen 41 mg/dL (9-20); Calcium 9.7 mg/dL (8.4-10.2); Carbon Dioxide 27 mmol/L (22-30); Chloride 103 mmol/L (98-107); Cholesterol 188 mg/dL (0-200); Estimated Glomerular Filt Rate 43; Glucose 138 mg/dL (65-110); HDL Direct 48 mg/dL; Potassium 4.6 mmol/L (3.4-5.0); Sodium 137 mmol/L (137-145); Triglycerides 134 mg/dL (<150)
[2021-06-06 07:47] LABS: LDL Cholesterol Direct 105 mg/dL
== END 2021-06-06 06:55 | disposition home or self-care (01) ==
PROVIDERS: PCP Family Medicine; Visit Provider Family Medicine
DX: E83.42 Hypomagnesemia (principal); E11.9 Type 2 diabetes mellitus without complications; Z13.220 Encounter for screening for lipoid disorders; M1A.09X0 Idiopathic chronic gout, multiple sites, without tophus (tophi); D64.9 Anemia, unspecified
CPT/HCPCS: 36415; 80048; 80061; 83735; 84443; 84550; 85025

== ENCOUNTER 2021-08-02 10:31 | Outpatient (CLI) | payer MEDICARE, SELFPAY ==
[2021-08-02 11:02] LABS: Hematocrit 34.4 % (42.0-52.0); Hemoglobin 11.4 g/dL (14.0-18.0); Mean Corpuscular HGB Conc 33.1 g/dl (32-36); Mean Corpuscular Hemoglobin 32.3 pg (26-34); Mean Corpuscular Volume 97.5 fl (80-100); Mean Platelet Volume 10.7 fl (7.4-10.4); Platelet Count Result 202 k/mm3 (150-375); Red Blood Count 3.53 M/mm3 (4.6-6.20); Red Cell Distribution Width 13.7 % (11.5-14.5); White Blood Count 5.9 K/mm3 (4.5-10.0)
[2021-08-02 11:13] LABS: Anion Gap 7 mmol/L (8-16); Blood Urea Nitrogen 23 mg/dL (9-20); Calcium 9.4 mg/dL (8.4-10.2); Carbon Dioxide 26 mmol/L (22-30); Chloride 104 mmol/L (98-107); Estimated Glomerular Filt Rate > 60; Glucose 126 mg/dL (65-110); Potassium 4.4 mmol/L (3.4-5.0); Sodium 137 mmol/L (137-145)
== END 2021-08-02 10:32 | disposition home or self-care (01) ==
PROVIDERS: PCP Family Medicine; Visit Provider Nurse Practitioner Family
DX: N28.9 Disorder of kidney and ureter, unspecified (principal); D50.9 Iron deficiency anemia, unspecified
CPT/HCPCS: 36415; 80048; 85027

== ENCOUNTER 2021-09-17 14:18 | Outpatient (CLI) | payer MEDICARE, SELFPAY ==
[2021-09-17 15:10] LABS: Basophils Absolute Auto 0.1 K/mm3 (0.0-0.1); Basophils Percent Auto 0.7 % (0.2-1.2); Eosinophils Absolute Auto 0.1 K/mm3 (0-0.3); Eosinophils Percent Auto 2.1 % (0-4.4); Hematocrit 34.8 % (42.0-52.0); Hemoglobin 11.7 g/dL (14.0-18.0); Immature Granulocyte Absolute 0.03 K/mm3 (0.00-0.031); Immature Granulocyte Percent A 0.4 % (0-0.5); Lymphocytes Absolute Auto 1.71 K/mm3 (0.9-3.2); Lymphocytes Percent Auto 25.4 % (18.3-44.2); Mean Corpuscular HGB Conc 33.6 g/dl (32-36); Mean Corpuscular Hemoglobin 31.7 pg (26-34); Mean Corpuscular Volume 94.3 fl (80-100); Mean Platelet Volume 10.5 fl (7.4-10.4); Monocytes Absolute Auto 0.7 K/mm3 (0.1-0.6); Monocytes Percent Auto 10.5 % (2.6-8.5); Neutrophils Absolute Auto 4.1 K/mm3 (1.3-6.7); Neutrophils Percent Auto 60.9 % (45.5-73.1); Platelet Count Result 187 k/mm3 (150-375); Red Blood Count 3.69 M/mm3 (4.6-6.20); Red Cell Distribution Width 13.2 % (11.5-14.5); White Blood Count 6.7 K/mm3 (4.5-10.0)
[2021-09-17 15:17] LABS: Anion Gap 7 mmol/L (8-16); Blood Urea Nitrogen 17 mg/dL (9-20); Calcium 9.3 mg/dL (8.4-10.2); Carbon Dioxide 28 mmol/L (22-30); Chloride 104 mmol/L (98-107); Estimated Glomerular Filt Rate > 60; Glucose 97 mg/dL (65-110); Potassium 4.5 mmol/L (3.4-5.0); Sodium 139 mmol/L (137-145)
[2021-09-17 15:26] LABS: NT Pro B Type Natriuretic Pept 142 pg/mL (5-100)
[2021-09-17 15:49] LABS: Thyroid Stimulating Hormone 0.996 uIU/mL (0.465-4.680)
== END 2021-09-17 14:19 | disposition home or self-care (01) ==
PROVIDERS: PCP Family Medicine; Visit Provider Physician Assistant Medical
DX: R06.02 Shortness of breath (principal); R60.9 Edema, unspecified
CPT/HCPCS: 36415; 80048; 83880; 84443; 85025

== ENCOUNTER 2021-11-01 10:24 | Inpatient (IN) | payer MEDICARE, SELFPAY ==
[2021-11-01] VITALS (70 sets, daily range): BP systolic 118–184; BP diastolic 44–68; PULSE 70–118; RESP 14–26; TEMP 36.1–37.1; O2SAT 91–100; BMI 25.9
--- NOTE | ~2021-11-01 | CT_ITS ---
EXAMINATION: CTA chest PE protocol EXAM DATE: 11/01/2021 12:02 INDICATION: Chest pain, elevated d dimer . TECHNIQUE: Spiral CTA of the chest (pulmonary arteries) was performed with 100 cc Omnipaque 350 intr avenous contrast injection. Images were acquired during the pulmonary arterial phase. Coronal maxi mum intensity projection 3D-reconstructions were created by the technologist on dedicated workstation . Axial, coronal and sagittal reformatted images were reviewed. The dose-length product (DLP) for t his examination was 358.86 mGy-cm. The exposure was tailored according to patient size (auto mA exp osure control), and iterative reconstruction (ASIR) was used as additional dose reduction technique. Comparison is made to prior examination from 07/22/2019. FINDINGS: The main, central pulmonary arteries are dilated which can indicate elevated pulmonary art erial pressure, pulmonary arterial hypertension. No pulmonary emboli. No thoracic aortic dissection. The lungs are clear. There are no pleural or pericardial effusions. Tracheobronchial tree is pat ent. There is no mediastinal, hilar or axillary lymphadenopathy. There is no pneumothorax. Hear t normal in size. There is mild coronary arterial calcification, arterial sclerosis. Upper abdomen is unremarkable. There is thoracic spondylosis without osteoblastic or osteolytic lesions identifi ed. IMPRESSION: Dilated pulmonary arteries without filling defects. Reviewed, dictated and finalized at location B. PULLER
--- NOTE | ~2021-11-01 | XR_ITS ---
EXAMINATION: XR chest 2V DATE: 11/01/2021 10:38 INDICATION: Chest pain. TECHNIQUE: Frontal and lateral views of the chest were obtained. COMPARISON: Chest 2 views 04/11/2021, chest CT 07/22/2019 FINDINGS: The chest demonstrates clear lungs without pneumonia, pleural effusion, or pneumothorax. Th e heart size is normal. The central pulmonary arteries are enlarged, consistent with pulmonary arteri al hypertension. There is mild chronic anterior wedging of multiple vertebral bodies. IMPRESSION: 1. No acute cardiopulmonary disease. Reviewed, dictated and finalized at location A. [facility]
--- NOTE | ~2021-11-01 | NM_ITS ---
EXAMINATION: NM marcy stress w perfusion DATE: 11/05/2021 13:48 INDICATION: Atypical chest pain. TECHNIQUE: Rest images were obtained following intravenous administration of 10.9 mCi Tc99m tetrofosm in (Myoview). The patient was infused intravenously with Lexiscan (regadenoson). Then, 32.7 mCi Tc99m tetrofosmin (Myoview) was administered intravenously, and stress images were obtained. Data was silvia nstructed into short axis and horizontal and vertical long axis SPECT images. Gated SPECT images were also obtained. COMPARISON: Myocardial perfusion imaging 04/13/2018 FINDINGS: There is no definite reversible or fixed perfusion abnormality to suggest ischemia or infar ction. There is no segmental wall motion abnormality. Left ventricular ejection fraction measures 6 6%. IMPRESSION: 1. No definite ischemia or infarct. 2. Normal left ventricular ejection fraction measuring 66%. Reviewed, dictated and finalized at location A. BLENDER
--- NOTE | ~2021-11-01 | US_ITS ---
EXAMINATION: US venous doppler [facility] EXAM DATE: 11/01/2021 11:22 INDICATION: Left leg swelling. TECHNIQUE: Multiple grayscale, color flow and Doppler images of the left lower extremity deep venous system were obtained and reviewed. Comparison is made to prior examination from 09/19/2020. FINDINGS: The left common femoral, femoral and profunda veins demonstrate normal color flow, respirat ory variation, augmentation and compressibility. Compressibility, color flow confirmed within the le ft popliteal, posterior tibial, peroneal, and greater saphenous veins. IMPRESSION: 1. No left lower extremity deep venous thrombosis. Reviewed, dictated and finalized at location B. STARTER
--- NOTE | 2021-11-01 10:26 | ECG_ITS ---
Measurements Intervals [place] Rate: 80 P: 50 [place]: 188 QRS: -4 QRSD: 92 T: 59 QT: 356 QTc: 412 Interpretive Statements SINUS RHYTHM POOR R-WAVE PROGRESSION ABNORMAL ECG COMPARED TO ECG 04/11/2021 12:20:35 NO SIGNIFICANT CHANGES Electronically Signed On 11-01-2021 10:42:41 [employer] by Sanchez Morgan M.D.
[2021-11-01 10:47] LABS: Basophils Percent Auto 0.4 % (0.2-1.2); Eosinophils Absolute Auto 0.2 K/mm3 (0-0.3); Eosinophils Percent Auto 1.8 % (0-4.4); Hematocrit 36.5 % (42.0-52.0); Hemoglobin 12.1 g/dL (14.0-18.0); Immature Granulocyte Absolute 0.05 K/mm3 (0.00-0.031); Immature Granulocyte Percent A 0.5 % (0-0.5); Lymphocytes Absolute Auto 2.12 K/mm3 (0.9-3.2); Lymphocytes Percent Auto 23.1 % (18.3-44.2); Mean Corpuscular HGB Conc 33.2 g/dl (32-36); Mean Corpuscular Hemoglobin 31.2 pg (26-34); Mean Corpuscular Volume 94.1 fl (80-100); Mean Platelet Volume 10.2 fl (7.4-10.4); Monocytes Absolute Auto 0.6 K/mm3 (0.1-0.6); Monocytes Percent Auto 6.6 % (2.6-8.5); Neutrophils Absolute Auto 6.2 K/mm3 (1.3-6.7); Neutrophils Percent Auto 67.6 % (45.5-73.1); Platelet Count Result 194 k/mm3 (150-375); Red Blood Count 3.88 M/mm3 (4.6-6.20); Red Cell Distribution Width 13.7 % (11.5-14.5); White Blood Count 9.2 K/mm3 (4.5-10.0)
[2021-11-01 10:57] LABS: INR 0.9; Prothrombin Time 12.2 Seconds (11.1-14.7)
[2021-11-01 10:58] LABS: Partial Thromboplastin Time 25.9 SECONDS (22.3-36.8)
[2021-11-01 10:59] LABS: Alanine Aminotransferase 24 U/L (4-50); Albumin Level 4.1 g/dL (3.5-5.1); Alkaline Phosphatase 100 U/L (38-126); Anion Gap 9 mmol/L (8-16); Aspartate Amino Transferase 32 U/L (17-59); Bilirubin,Total 0.5 mg/dL (0.2-1.3); Blood Urea Nitrogen 31 mg/dL (9-20); Calcium 9.5 mg/dL (8.4-10.2); Carbon Dioxide 26 mmol/L (22-30); Chloride 104 mmol/L (98-107); Estimated CRCL calculation 49 ml/min; Estimated Glomerular Filt Rate > 60; Glucose 149 mg/dL (65-110); Lipase 148 U/L (23-300); Potassium 5.1 mmol/L (3.4-5.0); Sodium 139 mmol/L (137-145)
--- NOTE | 2021-11-01 10:59 | ED.CHESTPAIN ---
HPI - Chest Pain General Chief Complaint: Chest Pain Stated Complaint: Chest pain Time Seen by Provider: 11/01/21 10:44 Source: patient and RN notes reviewed Mode of arrival: ambulatory Limitations: no limitations History of Present Illness HPI narrative: This is a 71 year old male with history of multiple medical problems including CAD with stent who presents for evaluation of midsternal chest pain. He reports having chest pain intermittently for 2days. He denies radiating pain . He reports his pain may last for several minutes before it resolves. It seems worse with cough and he reports having pain in his back when he coughs as well. He states his cough is nonproductive and minimal. He denies fever, nausea, vomiting or shortness of breath. He denies having any chest pain now. He also noticed some swelling to his left leg for 1 month. Related Data Home Medications Medication Instructions Recorded Confirmed blood sugar diagnostic #10 each 07/12/19 09/17/21 blood-glucose meter #1 each 07/12/19 09/17/21 lisinopril 20 mg tablet 20 mg PO DAILY 07/12/19 09/17/21 nitroglycerin 0.3 mg sublingual 0.3 mg SUBLINGUAL Q5M PRN 07/12/19 09/17/21 tablet pantoprazole 40 mg tablet,delayed 40 mg PO DAILY tablet 07/12/19 09/17/21 release aspirin 81 mg PO DAILY 07/22/19 09/17/21 Lacto.acidophilus-Bif.animalis See Rx Instructions PO .COMPLEX 04/22/21 09/17/21 [Daily Probiotic] atorvastatin 40 mg tablet 80 mg PO DAILY tablet 04/22/21 09/17/21 zywawuvl-ramu-ljbkv acid 400 tablet PO 04/22/21 09/17/21 mcg-lycopene 300 mcg-ginkgo 120 mg tablet phenylpropanolamine-GG [Trimixol] See Rx Instructions PO .COMPLEX 04/22/21 09/17/21 carvedilol 25 mg tablet 12.5 mg PO BID tablet 06/06/21 09/17/21 clopidogrel 75 mg tablet 75 mg PO DAILY tablet 06/25/21 09/17/21 Allergies Allergy/AdvReac Type Severity Reaction Status Date / Time No Known Allergies Allergy Verified 09/17/21 13:24 Review of Systems Review of Systems: All systems reviewed & are unremarkable except as noted in HPI and below PMFSH Past Medical History Medical History 1st MTP arthritis Adenomatous colon polyp Anemia BMI 25.0-25.9,adult BMI 25.0-25.9,adult BMI 26.0-26.9,adult BMI between 19-24,adult CAD (coronary artery disease) Carotid stenosis, asymptomatic h/o intracranial cerebral stenosis, evaluated at [place] 05/2019, thought not to be symptomatic cont med tx. Chills Collagenous colitis Colonoscopy planned Depression Fever GERD (gastroesophageal reflux disease) Glaucoma Gout (~08/2019) Groin discomfort High cholesterol HLD (hyperlipidemia) HTN (hypertension) Left shoulder pain Light headedness Personal history of DVT (deep vein thrombosis) Prostate cancer Right shoulder pain Shortness of breath Stenosis of infrarenal abdominal aorta due to arteriosclerosis Says his aorta is mildly enlarged Tendinitis of both rotator cuffs Type 2 diabetes mellitus without complications Wears glasses Surgical History Surgical History H/O cardiac catheterization H/O cystoscopy H/O heart artery stent H/O rectal polypectomy History of cataract surgery History of colonoscopy 2019 History of prostatectomy Had prostate cancer, status post prostatectomy and later radiation therapy. Has an implanted device to help with urinary incontinence. S/P arthroscopic surgery of left knee Family History Family History Father , of lung cancer age 83 Hypertension Sibling Hypertension Mother Family history of malignant neoplasm of breast in first degree relative Breast cancer of breast cancer age 37 Sibling No problems noted. Other Diabetes mellitus Family history of cardiovascular disease Family history of elevated blood lipids Family history of ma
[2021-11-01 11:10] LABS: Troponin I < 0.012 ng/mL (0.000-0.034)
[2021-11-01] MEDS: ASPIRIN 81 MG CHEWABLE TABLET 324 MG PO (11:19)
[2021-11-01 11:29] LABS: D Dimer 1.17 ug/mL (<0.48)
[2021-11-01 13:37] LABS: Troponin I < 0.012 ng/mL (0.000-0.034)
[2021-11-01 16:46] LABS: Troponin I < 0.012 ng/mL (0.000-0.034)
--- NOTE | 2021-11-01 19:54 | PC.NURSE ---
report to Carla CANCINO for 209 room not clean will call when room is ready
--- NOTE | 2021-11-01 19:57 | PM.IMHP ---
H&P: HPI History of Present Illness Date/Time: 11/01/21 19:57 Chief Complaint: Retrosternal chest pain. Narrative: This is a 71-year-old male with past medical history significant for coronary artery disease, status post stent placement, type 2 diabetes mellitus, colitis colitis, gastroesophageal reflux disease, gout, hyperlipidemia. Patient presents to the emergency room due to retrosternal chest pain nonradiating to precordial area or shoulder or arm or jaw, according to patient the pain can be triggered by swallowing has had pain for the last 2 days and was taking ibuprofen at home to make it go away however pain did not resolve and came to the emergency room patient denies any nausea, vomiting, abdominal pain, diarrhea, no cough, no sputum production, no shortness of breath, no fevers, no rigors, no chills, no PND ,no orthopnea, no leg swelling, no calf pain, no palpitations, no syncope or near syncope,no dizziness or lightheadedness. Preliminary workup has been essentially nonrevealing. Patient is been admitted for further evaluation, management and treatment. Review of Systems Review of Systems: Retrosternal chest pain triggered by swallowing. Constitutional: Constitutional: Denies chills, Denies fatigue, Denies fever(s), Denies lethargy, Denies malaise, Denies night sweats and Denies weakness Eyes: Eyes: Denies change in vision ENT: Denies dysphagia, Denies vertigo, Denies dizziness, Denies nasal congestion, Denies nasal discharge, Denies nasal obstruction and Reports odynophagia Cardiovascular: Cardiovascular: Reports chest pain (Retrosternal), Denies pedal edema, Denies claudication, Denies leg edema, Denies lightheadedness, Denies radiating jaw, neck or arm pain, Denies palpitations, Denies dyspnea, Denies dyspnea on exertion and Denies orthopnea Gastrointestinal: Gastrointestinal: Denies belching, Denies melena, Denies coffee ground emesis, Denies dysphagia, Denies dyspepsia, Denies heartburn, Denies diarrhea and Denies nausea Genitourinary: Genitourinary: Reports no additional male genitourinary complaints and Reports as per HPI Musculoskeletal: Musculoskeletal: Denies myalgias, Denies arthralgias, Denies joint swelling and Denies muscle weakness Integumentary/Breasts: Skin/Breast: Denies rash Neurologic: Denies focal weakness and Denies Sensory deficit (Neuro) Psychiatric: Psychiatric: Reports no additional psychiatric complaints and Reports as per HPI Endocrine: Endocrine: Denies cold intolerance, Denies heat intolerance, Denies polydipsia and Denies palpitations Hematologic/Lymphatic: Hematologic/Lymphatic: Reports no additional hematologic/lymphatic complaints and Reports as per HPI Allergic/Immunologic: Allergic/Immunologic: Reports no additional allergic/immunologic complaints and Reports as per HPI [facility] Past Medical History Medical History (Updated 11/02/21 @ 01:00 by Alpesh Alan MD) 1st MTP arthritis Adenomatous colon polyp Anemia BMI 25.0-25.9,adult BMI 25.0-25.9,adult BMI 26.0-26.9,adult BMI between 19-24,adult CAD (coronary artery disease) Carotid stenosis, asymptomatic h/o intracranial cerebral stenosis, evaluated at [place] 05/2019, thought not to be symptomatic cont med tx. Chills Collagenous colitis Colonoscopy planned Depression Fever GERD (gastroesophageal reflux disease) Glaucoma Gout (~08/2019) Groin discomfort High cholesterol HLD (hyperlipidemia) HTN (hypertension) Left shoulder pain Light headedness Personal history of DVT (deep vein thrombosis) Prostate cancer Right shoulder pain Shortness of breath Stenosis of infrarenal abdominal aorta due to arteriosclerosis Says his aorta is mildly enlarged Tendinitis of both rotator cuffs Type 2 diabetes mellitus without complications Wears glasses Surgical History Surgical History H/O cardiac catheterization H/O cystoscopy H/O heart artery stent H/O rectal polypectomy History of ca
--- NOTE | 2021-11-01 21:15 | ADMGEN ---
This patient, Derek Freeman, was admitted to IMU Room 209-01. Patient/family oriented to hospital policies and general routines including ID bracelet, bed and alarms, visiting hours, pain management, procedures, bathroom and other care routines, personal items, smoking policy, room service/diet, and visiting hours. Information on how to activate the Rapid Response Team has been discussed. Patient/Family are encouraged to report perceived risks to care and to ask questions if they do not understand what they are told or what they should do.
[2021-11-01] MEDS: carvediloL 12.5 MG TABLET PO (23:25)
[2021-11-01] MEDS: TICAGRELOR 60 MG TABLET PO (23:25)
[2021-11-01] MEDS: ATORVASTATIN 40 MG TABLET 80 MG PO (23:25)
[2021-11-02] VITALS (17 sets, daily range): BP systolic 109–177; BP diastolic 45–62; PULSE 63–83; RESP 16; TEMP 36.3–36.8; O2SAT 95–100
[2021-11-02 08:20] LABS: Glucose Point of Care 113 mg/dl (65-105)
[2021-11-02] MEDS: NITROGLYCERIN SL 0.4 MG TABLET SUBLINGUAL (08:28)
[2021-11-02] MEDS: ACIDOPHILUS/BULGARICUS CHEWABLE TABLET 1 TABLET PO (08:43)
[2021-11-02] MEDS: ASPIRIN 81 MG CHEWABLE TABLET PO (08:43)
[2021-11-02] MEDS: carvediloL 12.5 MG TABLET PO ×2 (08:43→19:42)
[2021-11-02] MEDS: allopurinoL 300 MG TABLET PO (08:43)
[2021-11-02] MEDS: lisinopriL 20 MG TABLET PO (08:44)
[2021-11-02] MEDS: PANTOPRAZOLE 40 MG TABLET PO (08:44)
[2021-11-02] MEDS: NORTRIPTYLINE HCL 25 MG CAPSULE PO (08:44)
[2021-11-02] MEDS: TICAGRELOR 60 MG TABLET PO ×2 (08:45→19:42)
[2021-11-02] MEDS: MAGNESIUM OXIDE 400 MG TABLET PO ×2 (08:45→17:25)
--- NOTE | 2021-11-02 09:38 | PM.CNCAR ---
Assessment and Plan Assessment and plan (1) Retrosternal chest pain: Code(s): R07.2 - Precordial pain Status: Acute Assessment and Plan: Atypical chest pain occurring with eating and drinking, randomly in supposedly with exertion. Concerning worsening fatigue and dyspnea without clear explanation otherwise. Given history of CAD and prior stent implantation ischemic evaluation is warranted. He has ruled out for myocardial infarction with negative serial cardiac enzymes. Noninvasive Lexiscan nuclear stress test. Telemetry. GI consultation. Chest pain possibly GI related other due to esophageal spasm, stricture and or GERD/esophagitis but cannot entirely exclude cardiac explanation. He would be safe to proceed with endoscopy pursue this hospitalization prior to ischemic assessment. I do believe proceeding with invasive angiography is warranted at present LEs he has recurrent, refractory chest pain and or with evidence of myocardial infarction with elevated troponin or dynamic EKG changes. Will review 2D echocardiogram when available to assess for LV function, chamber size, wall motion abnormality, valve pathology pulmonary pressures. Recommendations to follow. (2) CAD (coronary artery disease): Qualifiers: Associated angina: without angina Coronary Disease-Associated Artery/Lesion type: [place] artery [place] vs. transplanted heart: [place] heart Qualified Code(s): I25.10 - Atherosclerotic heart disease of [place] coronary artery without angina pectoris Code(s): I25.10 - Atherosclerotic heart disease of [place] coronary artery without angina pectoris Status: Acute Assessment and Plan: As above. He is on chronic dual antiplatelet therapy with aspirin and ticagrelor 60 mg b.i.d.. Continue atorvastatin, carvedilol, lisinopril. (3) Peripheral vascular disease, unspecified: Code(s): I73.9 - Peripheral vascular disease, unspecified Status: Chronic Assessment and Plan: Stable, no acute issues. Continue aggressive atherosclerotic risk reduction and medical management. (4) HTN (hypertension): Code(s): I10 - Essential (primary) hypertension Status: Acute Assessment and Plan: BP poorly controlled presentation although improved this afternoon. Increase lisinopril to 40 mg daily as renal function permits. (5) Shortness of breath: Code(s): R06.02 - Shortness of breath Status: Acute Assessment and Plan: He is not decompensated heart failure. He is not hypoxic. He is maintaining sinus rhythm and has a very mild anemia without clinical evidence of acute blood loss. CT angio of the chest without PE, dissection, pneumothorax or infiltrate. Dilated pulmonary vasculature suggestive of pulmonary hypertension. Will review 2D echocardiogram with recommendations to follow. If significant pulmonary hypertension apnea link overnight to screen for PHUC. (6) GERD (gastroesophageal reflux disease): Code(s): K21.9 - Gastro-esophageal reflux disease without esophagitis Status: Acute Assessment and Plan: Per GI. Appreciate their recommendations and involvement. History of Present Illness History of Present Illness Consult date/time: Date of service: 11/02/21 09:38 Cardiology consultation at the request of Dr. Alan for opinion regarding quite chest pain and history of CAD. Requesting physician: Alpesh Alan MD Consult reason: chest pain Reason For Visit: Chest pain/dyspnea Narrative: Patient is a very pleasant 71-year-old male with a past medical history significant for coronary disease with prior drug-eluting stent implantation to his circumflex 2016, peripheral arterial disease with history of bilateral aortoiliac stenosis status post stenting 2014, type 2 diabetes mellitus, prostate cancer, hypertension reported history of GERD who presented to ER with aching chest pain mid sternum and upper epigastric which will last several mi
--- NOTE | 2021-11-02 09:44 | ECHO_ITS ---
Patient Info Name: Derek Freeman Age: 71 years : 1950 Gender: Male Ht: 66 in Wt: 160 lbs BSA: 1.85 m2 HR: 72 bpm BP: 177 / 62 mmHg Heart Rhythm: Sinus Rhythm Technical Quality: Good Exam Date: 11/02/2021 10:12 AM Exam Location: [facility] Card Pulmonary Patient Status: Inpatient Admit Date: 11/01/2021 Staff Ordering Physician: Ned Pete MD Sales Team Leader: Stephenie Reyna RDCS Attending Provider: Roya Sullivan PA-C Referring Physician: Yanci TRINIDAD; Exam Type: CA echo doppler color flow Study Info Indications R07.9 - Chest pain, unspecified Complete two-dimensional, color flow and Doppler transthoracic echocardiogram is performed. History/Risk Factors Coronary Artery Disease (CAD) Yes Summary 1. Complete two-dimensional, color flow and Doppler transthoracic echocardiogram is performed. 2. Left ventricular chamber dimension is normal. 3. Left ventricular systolic function is normal, estimated at 65-70%. 4. There is mildly increased left ventricular wall thickness. 5. The left ventricular diastolic function is grade I diastolic dysfunction. 6. There is mild mitral valve regurgitation. 7. There is no aortic valve stenosis. Left Ventricle Left ventricular chamber dimension is normal. Left ventricular systolic function is normal, estimated at 65-70%. There is mildly increased left ventricular wall thickness. The left ventricular diastolic function is grade I diastolic dysfunction. Right Ventricle Right ventricular chamber dimension is normal. Right ventricular systolic function is normal. Left Atria Left atrial chamber dimension is normal. Right Atria Right atrial chamber dimension is normal. Aortic Valve The aortic valve is trileaflet. There is no aortic valve stenosis. There is no aortic valve regurgitation. Pulmonic Valve The pulmonic valve is not well visualized. There is trace pulmonic regurgitation. Mitral Valve The mitral valve has normal leaflets. There is mild mitral valve regurgitation. The mitral valve annulus is mildly calcified. Tricuspid Valve The tricuspid valve leaflets are normal. There is mild tricuspid valve regurgitation. No pulmonary hypertension, estimated pulmonary arterial systolic pressure is 14 mmHg. Pericardium/Pleural The pericardium appears normal. There is small pericardial effusion. Inferior Vena Cava Normal inferior vena cava with >50% collapse upon inspiration consistent with normal right atrial pressure, 5 mmHg. Aorta The aortic root size at the sinus of Valsalva is normal. There is mild aortic atherosclerosis. Left Ventricular Outflow Tract Name Value Normal LVOT 2D LVOT Diameter 1.9 cm LVOT Doppler LVOT Peak Gradient 3 mmHg LVOT Mean Gradient 1 mmHg LVOT VTI 19 cm LVOT VTI/AV VTI Ratio 0.8 LVOT Stroke Volume 53 ml LVOT CO 3.9 l/min LVOT CI 2.1 l/min/m2 Pulmonic Valve --
[2021-11-02 10:18] LABS: Anion Gap 4 mmol/L (8-16); Blood Urea Nitrogen 23 mg/dL (9-20); Calcium 9.4 mg/dL (8.4-10.2); Carbon Dioxide 26 mmol/L (22-30); Chloride 105 mmol/L (98-107); Estimated CRCL calculation 49 ml/min; Estimated Glomerular Filt Rate > 60; Glucose 243 mg/dL (65-110); Magnesium 1.8 mg/dL (1.6-2.3); Potassium 4.7 mmol/L (3.4-5.0); Sodium 135 mmol/L (137-145)
[2021-11-02 12:18] LABS: Glucose Point of Care 138 mg/dl (65-105)
--- NOTE | 2021-11-02 13:22 | WPDGICN ---
Assessment and Plan Assessment and plan (1) Retrosternal chest pain: Code(s): R07.2 - Precordial pain Status: Acute Assessment and Plan: atypical pain but admitted for cardiac work up given previous history, cardiology to assess patient he is comfortable now and feeling better (2) GERD (gastroesophageal reflux disease): Code(s): K21.9 - Gastro-esophageal reflux disease without esophagitis Status: Acute Assessment and Plan: he had EGD 2020 (reviewed), already on protonix says that mild dysphagia but tolerating diet if cardiac work up negative, then he can go home and I can do EGD as outpatient (3) Dysphagia: Code(s): R13.10 - Dysphagia, unspecified Status: Acute Assessment and Plan: assess with egd (4) CAD (coronary artery disease): Qualifiers: Coronary Disease-Associated Artery/Lesion type: [place] artery [place] vs. transplanted heart: [place] heart Associated angina: without angina Qualified Code(s): I25.10 - Atherosclerotic heart disease of [place] coronary artery without angina pectoris Code(s): I25.10 - Atherosclerotic heart disease of [place] coronary artery without angina pectoris Status: Acute (5) Microscopic colitis: Code(s): K52.839 - Microscopic colitis, unspecified Status: Acute Assessment and Plan: known condition without changes last colonoscopy 2019, using antidiarrheal as needed next colonoscopy due 2024 because had polyps in the past GI Consult Note Consult date/time: 11/02/21 13:22 Reason for consult: atypical chest pain, gerd HPI: Derek Freeman is a 71 year old male past medical history significant for coronary artery disease, status post stent placement about 5 years ago on brilinta, type 2 diabetes mellitus, microscopic colitis with last colonoscopy 2019 with normal colonoscopy bx showed mild colitis- he is using imodium only as needed, gastroesophageal reflux disease with last EGD [address] Dickinson, mild gastritis, no celiac- using protonix daily. He came to the emergency room due to retrosternal chest pain and also epigastric discomfort for 2 days, took ibuprofen but did not help with pain, also noted some discomfort after eating and swallowing in epigastric site but no vomiting or nausea. Admitted for cardiac work up, he also noted that pain worsens after doing activities. Review of Systems Constitutional: Constitutional: Denies difficulty sleeping Eyes: Eyes: Denies blurry vision ENT: Comments: using hearing aids Cardiovascular: Cardiovascular: Reports chest pain Respiratory: Respiratory: Denies dyspnea Gastrointestinal: Gastrointestinal: Denies nausea Genitourinary: Genitourinary: Denies dysuria Musculoskeletal: Musculoskeletal: Denies neck pain Integumentary/Breasts: Skin/Breast: Denies dry skin Neurologic: Denies headache(s) Psychiatric: Psychiatric: Denies behavioral changes [facility] Past Medical History Medical History (Updated 11/02/21 @ 13:28 by Adrian Frias MD) 1st MTP arthritis Adenomatous colon polyp Anemia BMI 25.0-25.9,adult BMI 25.0-25.9,adult BMI 26.0-26.9,adult BMI between 19-24,adult CAD (coronary artery disease) Carotid stenosis, asymptomatic h/o intracranial cerebral stenosis, evaluated at [place] 05/2019, thought not to be symptomatic cont med tx. [place] Collagenous colitis Colonoscopy planned Depression Dysphagia Fever GERD (gastroesophageal reflux disease) Glaucoma Gout (~08/2019) Groin discomfort High cholesterol HLD (hyperlipidemia) HTN (hypertension) Left shoulder pain Light headedness Microscopic colitis Personal history of DVT (deep vein thrombosis) Prostate cancer Right shoulder pain Shortness of breath Stenosis of infrarenal abdominal aorta due to arteriosclerosis Says his aorta is mildly enlarged Tendinitis of both rotator cuffs Type 2 diabetes mellitus without complications Wears glasses Surgical History Surgical Histo
--- NOTE | 2021-11-02 14:36 | PM.IMPN ---
Progress Note: A&P Assessment and Plan (1) Retrosternal chest pain: Code(s): R07.2 - Precordial pain Status: Acute Assessment and Plan: Patient presented with 3-4 days of retrosternal pain as detailed in subjective Appreciate cardiology and gastroenterology consultation Etiology for these vague and variable symptoms is unclear Patient does have a history of CAD and stent approximately 5 years ago Echo reviewed without any evidence of wall motion abnormalities, no significant valvular disease Troponins negative x3 Appreciate cardiology recommendations. Consider further ischemic evaluation Continue aspirin Brilinta Per GI, plan for outpatient EGD Continue Protonix p.o. b.i.d. (2) CAD (coronary artery disease): Qualifiers: Coronary Disease-Associated Artery/Lesion type: [place] artery [place] vs. transplanted heart: [place] heart Associated angina: without angina Qualified Code(s): I25.10 - Atherosclerotic heart disease of [place] coronary artery without angina pectoris Code(s): I25.10 - Atherosclerotic heart disease of [place] coronary artery without angina pectoris Status: Acute Assessment and Plan: Continue dual antiplatelet therapy (3) HTN (hypertension): Code(s): I10 - Essential (primary) hypertension Status: Acute Assessment and Plan: Blood pressures reviewed and have been elevated but slowly improving. Last BP 136/58 Continue carvedilol and lisinopril Monitor blood pressure trends (4) GERD (gastroesophageal reflux disease): Code(s): K21.9 - Gastro-esophageal reflux disease without esophagitis Status: Acute Assessment and Plan: Patient states current symptoms are not consistent with GERD Continue Protonix b.i.d. (5) Diabetes mellitus: Qualifiers: Diabetes mellitus type: type 2 Diabetes mellitus termite treater helper insulin use: without termite treater helper use Diabetes mellitus complication status: with other specified complication Qualified Code(s): E11.69 - Type 2 diabetes mellitus with other specified complication Code(s): E11.9 - Type 2 diabetes mellitus without complications Status: Acute Assessment and Plan: Blood sugars ranging 140-240 today Begin Accu-Cheks, sliding scale insulin, hypoglycemic protocol Check A1c Monitor glucose trends and adjust as needed Home metformin on hold Subjective Date/time seen: 11/02/21 14:36 Interval history: Date of service: 11/02/2021 Derek Freeman is a pleasant 71-year-old male with a history anemia, CAD, carotid stenosis, hypertension, hyperlipidemia, prostate cancer, type 2 diabetes mellitus who is seen in follow-up for atypical chest pain. He states that his chest pain has been ongoing for 3-4 days. He cannot think of anything that makes it better. He notes that is worse with eating but it does not flare up every time that he eats. Occurs with both solids and liquids, and he notices it most often when he takes a bit gulp of water. He at first thought this was heartburn or acid reflux, but he states that it is different than that. Also notes that is occasionally worse with inspiration and at times worsened with activity. Reports this pain is intermittent and describes as a dull ache in the mid sternal region. Pain gets up to a 7/10. Currently at a 2/10. He denies dyspnea on exertion. Denies wheezing. Denies radiation to the arm, jaw, back. He does state 1 time earlier this week he coughed he had some left shoulder pain. He has still been able to eat and seems to be tolerating his diet. Denies issues with hard or chewy foods. He denies PND but does state that occasionally he will wake himself up at night from snoring. He is able to get around independently and without difficulty. He denies dizziness or lightheadedness. Denies nausea, vomiting, fever, or chills. Denies sweats. Review of Systems Review of Systems: All systems reviewed &
[2021-11-02 16:05] LABS: Glucose Point of Care 152 mg/dl (65-105)
[2021-11-02] MEDS: ATORVASTATIN 40 MG TABLET 80 MG PO (19:41)
[2021-11-03] VITALS (16 sets, daily range): BP systolic 100–174; BP diastolic 36–67; PULSE 60–85; RESP 12–20; TEMP 36.1–36.6; O2SAT 97–100
[2021-11-03 00:01] LABS: Glucose Point of Care 100 mg/dl (65-105)
[2021-11-03 04:32] LABS: Hemoglobin 11.2 g/dL (14.0-18.0); Mean Corpuscular HGB Conc 33.9 g/dl (32-36); Mean Corpuscular Hemoglobin 31.3 pg (26-34); Mean Corpuscular Volume 92.2 fl (80-100); Mean Platelet Volume 10.6 fl (7.4-10.4); Platelet Count Result 182 k/mm3 (150-375); Red Blood Count 3.58 M/mm3 (4.6-6.20); Red Cell Distribution Width 13.5 % (11.5-14.5); White Blood Count 7.8 K/mm3 (4.5-10.0)
[2021-11-03 04:48] LABS: Anion Gap 3 mmol/L (8-16); Blood Urea Nitrogen 23 mg/dL (9-20); Calcium 9.2 mg/dL (8.4-10.2); Carbon Dioxide 30 mmol/L (22-30); Chloride 106 mmol/L (98-107); Estimated CRCL calculation 53 ml/min; Estimated Glomerular Filt Rate > 60; Glucose 118 mg/dL (65-110); Potassium 4.5 mmol/L (3.4-5.0); Sodium 139 mmol/L (137-145)
[2021-11-03 08:10] LABS: Glucose Point of Care 152 mg/dl (65-105)
[2021-11-03] MEDS: allopurinoL 300 MG TABLET PO (08:54)
[2021-11-03] MEDS: ACIDOPHILUS/BULGARICUS CHEWABLE TABLET 1 TABLET PO (08:54)
[2021-11-03] MEDS: ASPIRIN 81 MG CHEWABLE TABLET PO (08:54)
[2021-11-03] MEDS: NORTRIPTYLINE HCL 25 MG CAPSULE PO (08:55)
[2021-11-03] MEDS: MAGNESIUM OXIDE 400 MG TABLET PO ×2 (08:55→17:11)
[2021-11-03] MEDS: carvediloL 12.5 MG TABLET PO ×2 (08:55→19:55)
[2021-11-03] MEDS: lisinopriL 20 MG TABLET PO (08:55)
[2021-11-03] MEDS: TICAGRELOR 60 MG TABLET PO ×2 (08:56→19:55)
[2021-11-03] MEDS: PANTOPRAZOLE 40 MG TABLET PO (08:56)
--- NOTE | 2021-11-03 09:23 | WPDGIPROGNO ---
Progress Note: A&P Assessment and Plan (1) Retrosternal chest pain: Code(s): R07.2 - Precordial pain Status: Acute Assessment and Plan: resolved, will proceed with egd tomorrow to assess if gi source of discomfort (also some dysphagia)- last egd [address] Dickinson with few tertiary contractions, did not find stricture but empirically dilated with 54 fr. He is still on ppi. Cardiology prefers to complete EGD as inpatient then can complete cardiac work up. (2) Dysphagia: Code(s): R13.10 - Dysphagia, unspecified Status: Acute Assessment and Plan: will assess with egd (3) Microscopic colitis: Code(s): K52.839 - Microscopic colitis, unspecified Status: Acute Assessment and Plan: no changes (4) GERD (gastroesophageal reflux disease): Code(s): K21.9 - Gastro-esophageal reflux disease without esophagitis Status: Acute Subjective Date/time seen: 11/03/21 09:23 Interval history: chest pain resolved, doing much better. Review of Systems Review of Systems: All systems reviewed & are unremarkable except as noted in HPI and below Exam Const: General: comfortable and no acute distress HENMT: General nose exam: Normal nares present Eyes: General: appearance normal, both eyes and all related structures Neck: Neck: no JVD Resp: Auscultation: clear to auscultation bilaterally Cardio: Rate: regular rate Rhythm: regular rhythm GI: Inspection: non-distended GI Palp: Yes Soft to palpation and No Guarding due to palpation present (GI) Auscultation: normal bowel sounds Skin: General skin exam: normal color Neuro: Speech: normal speech Motor exam (neuro): Normal motor muscle tone present throughout Extrem: General: normal to inspection Psych: Mental Status: mental status grossly normal Objective Data Vital Signs Vital Signs: Vital Signs - 24 hr 11/02/21 10:00 11/02/21 12:00 11/02/21 14:00 Temperature 97.9 F Pulse Rate 76 67 65 Respiratory Rate 16 Blood Pressure 136/58 L Pulse Oximetry 95 11/02/21 16:00 11/02/21 18:00 11/02/21 19:35 Temperature 97.5 F L 97.8 F Pulse Rate 72 76 71 Respiratory Rate 16 16 Blood Pressure 152/49 H 165/47 H Pulse Oximetry 100 100 11/02/21 19:42 11/02/21 20:00 11/02/21 22:00 Temperature Pulse Rate 73 73 70 Respiratory Rate 16 Blood Pressure Pulse Oximetry 100 11/02/21 23:31 11/02/21 23:58 11/03/21 00:00 Temperature 97.3 F L Pulse Rate 69 73 69 Respiratory Rate 16 16 Blood Pressure 109/59 L Pulse Oximetry 96 100 11/03/21 02:00 11/03/21 03:52 11/03/21 04:00 Temperature 97.5 F L Pulse Rate 64 85 73 Respiratory Rate 16 16 Blood Pressure 100/36 L Pulse Oximetry 99 100 11/03/21 08:00 11/03/21 08:55 Temperature 97.0 F L Pulse Rate 76 77 Respiratory Rate 16 Blood Pressure 155/67 H Pulse Oximetry 99 Intake/Output Intake/Output: Intake & Output 10/31/21 11/01/21 11/02/21 11/03/21 23:59 23:59 23:59 23:59 Intake Total 870 860 Output Total 750 450 Balance 120 410 Meds/Results Medications: Active Medications Generic Name Dose Route Start Last Admin Trade Name Freq PRN Reason Stop Dose Admin Acetaminophen 500 mg 11/01/21 22:50 Acetaminophen 500 Mg Tablet PO Q4-6H PRN fever or pain 1-3 Allopurinol 300 mg 11/02/21 08:00 11/03/21 08:54 Allopurinol 300 Mg Tablet PO 300 mg DAILY@0800 CLARISSA Administration Alprazolam 0.5 mg 11/01/21 22:50 Alprazolam (*Crx) 0.5 Mg Tablet PO TID PRN Anxiety Aspirin 81 mg 11/02/21 08:00 11/03/21 08:54 Aspirin 81 Mg Chewable Tablet PO 81 mg DAILY@0800 CLARISSA Administration Atorvastatin Calcium 80 mg 11/01/21 23:00 11/02/21 19:41 Atorvastatin 40 Mg Tablet PO 80 mg HS CLARISSA Administration Carvedilol 12.5 mg 11/01/21 23:05 11/03/21 08:55 Carvedilol 12.5 Mg Tablet PO 12.5 mg Q12HR CLARISSA Administration Dextrose 12.5 gm 11/02/21 14:48
--- NOTE | 2021-11-03 11:36 | PM.PNCARD ---
Progress Note: A&P Assessment and Plan (1) Retrosternal chest pain: Code(s): R07.2 - Precordial pain Status: Acute Assessment and Plan: At admission, atypical chest pain occurring with eating and drinking, randomly in supposedly with exertion. Concerning worsening fatigue and dyspnea without clear explanation currently resolved. He has ruled out for myocardial infarction with negative serial cardiac enzymes. -Given history of CAD and prior stent implantation ischemic evaluation with Lexiscan nuclear perfusion study warranted which may be performed as an inpatient or outpatient depending on symptoms and clinical status. -Chest pain possibly GI related due to esophageal spasm, stricture and or GERD/esophagitis but cannot entirely exclude cardiac explanation. -appreciate GI recommendations and decision to proceed with EGD tomorrow morning. May try to perform Lexiscan later tomorrow post EGD but this would be unlikely logistically. If GI explanation outpatient ischemic evaluation appropriate. Recommendation to follow after review EGD results and clinical status. I do NOT believe proceeding with invasive angiography is warranted at present given asymptomatic status without injury noted. -2D echo personally reviewed and discussed normal LV wall motion, EF 65-70% normal pulmonary pressures, no significant valve pathology. (2) CAD (coronary artery disease): Qualifiers: Coronary Disease-Associated Artery/Lesion type: [place] artery [place] vs. transplanted heart: [place] heart Associated angina: without angina Qualified Code(s): I25.10 - Atherosclerotic heart disease of [place] coronary artery without angina pectoris Code(s): I25.10 - Atherosclerotic heart disease of [place] coronary artery without angina pectoris Status: Acute Assessment and Plan: As above. He is on chronic dual antiplatelet therapy with aspirin and ticagrelor 60 mg b.i.d.. Continue atorvastatin, carvedilol, lisinopril. Okay to hold aspirin and ticagrelor in a.m.. (3) Peripheral vascular disease, unspecified: Code(s): I73.9 - Peripheral vascular disease, unspecified Status: Chronic Assessment and Plan: Stable, no acute issues. Continue aggressive atherosclerotic risk reduction and medical management. (4) HTN (hypertension): Code(s): I10 - Essential (primary) hypertension Status: Acute Assessment and Plan: BP poorly controlled presentation although improved this afternoon. Increase lisinopril to 40 mg daily as renal function permits. (5) Shortness of breath: Code(s): R06.02 - Shortness of breath Status: Acute Assessment and Plan: Resolved. Precise etiology remains unclear although initial concern for potential anginal equivalent. He is not decompensated heart failure nor is he hypoxic. CT angio of the chest at admission without PE, dissection, pneumothorax or infiltrate. Dilated pulmonary vasculature suggestive of pulmonary hypertension but not confirmed on echocardiogram. (6) GERD (gastroesophageal reflux disease): Code(s): K21.9 - Gastro-esophageal reflux disease without esophagitis Status: Acute Assessment and Plan: GI consultation noted. Greatly appreciate their recommendations and involvement. Subjective Date/time seen: Date of service: 11/03/21 11:36 Follow-up for chest pain, shortness of breath Patient denies recurrent chest pain since admission. States he is feeling much better overall. Denies significant shortness of breath with ambulation since yesterday afternoon. Admits JARA was intermittent in general, not consistent overall which is somewhat different to the history provided upon admission. No nausea, vomiting. Eating well. Telemetry stable. No new issues overnight. Review of Systems Review of Systems: All systems reviewed & are unremarkable except as noted in HPI and below Constitutional: Constitutional: Reports as per HPI, R
[2021-11-03 11:58] LABS: Glucose Point of Care 135 mg/dl (65-105)
--- NOTE | 2021-11-03 12:52 | P.PNIM_ITS ---
Progress Note: A&P Assessment and Plan (1) Retrosternal chest pain: Code(s): R07.2 - Precordial pain Status: Acute Assessment and Plan: Patient presented with 3-4 days of retrosternal pain as detailed in subjective * Appreciate cardiology and gastroenterology consultation * Etiology for these vague and variable symptoms is unclear * Patient does have a history of CAD and stent approximately 5 years ago * Echo reviewed without any evidence of wall motion abnormalities, no significant valvular disease * Troponins negative x3 * Planning for EGD tomorrow morning * Consider Lexiscan stress test following EGD if no GI etiology for sx is identified * Continue aspirin and Brilinta * Continue Protonix p.o. b.i.d. (2) CAD (coronary artery disease): Qualifiers: Associated angina: without angina Coronary Disease-Associated Artery/Lesion type: [place] artery [place] vs. transplanted heart: [place] heart Qualified Code(s): I25.10 - Atherosclerotic heart disease of [place] coronary artery without angina pectoris Code(s): I25.10 - Atherosclerotic heart disease of [place] coronary artery without angina pectoris Status: Acute Assessment and Plan: Continue dual antiplatelet therapy (3) HTN (hypertension): Code(s): I10 - Essential (primary) hypertension Status: Acute Assessment and Plan: Blood pressures reviewed and have been elevated but slowly improving. Last BP 168/57 * Continue carvedilol and lisinopril * Monitor blood pressure trends (4) GERD (gastroesophageal reflux disease): Code(s): K21.9 - Gastro-esophageal reflux disease without esophagitis Status: Acute Assessment and Plan: Patient states current symptoms are not consistent with GERD * Continue Protonix b.i.d. 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: without penitentiary use Diabetes mellitus type: type 2 Qualified Code(s): E11.69 - Type 2 diabetes mellitus with other specified complication Code(s): E11.9 - Type 2 diabetes mellitus without complications Status: Acute Assessment and Plan: Blood sugars well controlled today * Continue Accu-Cheks, sliding scale insulin, hypoglycemic protocol * Monitor glucose trends and adjust as needed * Home metformin on hold * Check A1c Subjective Date/time seen: 11/03/21 12:52 Interval history: Date of service: 11/02/2021 Derek Freeman is a pleasant 71-year-old male with a history anemia, CAD, carotid stenosis, hypertension, hyperlipidemia, prostate cancer, type 2 diabetes mellitus who is seen in follow-up for atypical chest pain. He feels better today. He states he doesn't have much chest pain today. Endorses a dull ache that he rates as 1/10. He points to the upper third of his sternum to localize where he feels the pain. He has been ambulating around his room. He denies SOB or JARA. He feels a bit anxious today regarding his EGD tomorrow. He has been eating well today and denies dysphagia, odynophagia, or increase in his CP symptoms with swallowing. He tells me today that he has occasional palpitations but has not had any recent episodes over the past week or more. He is in good spirits. He has no additional concerns. Review of Systems Review of Systems: All systems reviewed & are unremarkable except as noted in HPI and below Exam Narrative: General: Thin, well-appearing 71 year-old male, lying s
--- NOTE | 2021-11-03 12:52 | PM.IMPN ---
Progress Note: A&P Assessment and Plan (1) Retrosternal chest pain: Code(s): R07.2 - Precordial pain Status: Acute Assessment and Plan: Patient presented with 3-4 days of retrosternal pain as detailed in subjective Appreciate cardiology and gastroenterology consultation Etiology for these vague and variable symptoms is unclear Patient does have a history of CAD and stent approximately 5 years ago Echo reviewed without any evidence of wall motion abnormalities, no significant valvular disease Troponins negative x3 Planning for EGD tomorrow morning Consider Lexiscan stress test following EGD if no GI etiology for sx is identified Continue aspirin and Brilinta Continue Protonix p.o. b.i.d. (2) CAD (coronary artery disease): Qualifiers: Associated angina: without angina Coronary Disease-Associated Artery/Lesion type: [place] artery [place] vs. transplanted heart: [place] heart Qualified Code(s): I25.10 - Atherosclerotic heart disease of [place] coronary artery without angina pectoris Code(s): I25.10 - Atherosclerotic heart disease of [place] coronary artery without angina pectoris Status: Acute Assessment and Plan: Continue dual antiplatelet therapy (3) HTN (hypertension): Code(s): I10 - Essential (primary) hypertension Status: Acute Assessment and Plan: Blood pressures reviewed and have been elevated but slowly improving. Last BP 168/57 Continue carvedilol and lisinopril Monitor blood pressure trends (4) GERD (gastroesophageal reflux disease): Code(s): K21.9 - Gastro-esophageal reflux disease without esophagitis Status: Acute Assessment and Plan: Patient states current symptoms are not consistent with GERD Continue Protonix b.i.d. (5) Diabetes mellitus: Qualifiers: Diabetes mellitus complication status: with other specified complication Diabetes mellitus telescope maintenance insulin use: without telescope maintenance use Diabetes mellitus type: type 2 Qualified Code(s): E11.69 - Type 2 diabetes mellitus with other specified complication Code(s): E11.9 - Type 2 diabetes mellitus without complications Status: Acute Assessment and Plan: Blood sugars well controlled today Continue Accu-Cheks, sliding scale insulin, hypoglycemic protocol Monitor glucose trends and adjust as needed Home metformin on hold Check A1c Subjective Date/time seen: 11/03/21 12:52 Interval history: Date of service: 11/02/2021 Derek Freeman is a pleasant 71-year-old male with a history anemia, CAD, carotid stenosis, hypertension, hyperlipidemia, prostate cancer, type 2 diabetes mellitus who is seen in follow-up for atypical chest pain. He feels better today. He states he doesn't have much chest pain today. Endorses a dull ache that he rates as 1/10. He points to the upper third of his sternum to localize where he feels the pain. He has been ambulating around his room. He denies SOB or JARA. He feels a bit anxious today regarding his EGD tomorrow. He has been eating well today and denies dysphagia, odynophagia, or increase in his CP symptoms with swallowing. He tells me today that he has occasional palpitations but has not had any recent episodes over the past week or more. He is in good spirits. He has no additional concerns. Review of Systems Review of Systems: All systems reviewed & are unremarkable except as noted in HPI and below Exam Narrative: General: Thin, well-appearing 71 year-old male, lying semirecumbent in bed, comfortable, NARD Neuro: awake, alert and oriented x4, speech clear, no focal neuro deficits noted HEENMT: normocephalic, atraumatic, EOMI, sclerae anicteric Respiratory: clear to auscultation bilaterally, nonlabored breathing Cardio: regular rate, regular rhythm with S1-S2 Abdomen: nondistended, normoactive bowel sounds, soft, nontender to palpation Extremities: no edema, erythema, or tenderness
[2021-11-03 15:49] LABS: Glucose Point of Care 107 mg/dl (65-105)
[2021-11-03] MEDS: ATORVASTATIN 40 MG TABLET 80 MG PO (19:55)
[2021-11-03 20:10] LABS: Glucose Point of Care 137 mg/dl (65-105)
[2021-11-04] VITALS (20 sets, daily range): BP systolic 108–161; BP diastolic 36–87; PULSE 59–85; RESP 16–20; TEMP 35.8–36.6; O2SAT 94–100
[2021-11-04 04:47] LABS: Hematocrit 34.8 % (42.0-52.0); Hemoglobin 11.5 g/dL (14.0-18.0); Mean Corpuscular Hemoglobin 30.8 pg (26-34); Mean Corpuscular Volume 93.3 fl (80-100); Mean Platelet Volume 10.5 fl (7.4-10.4); Platelet Count Result 182 k/mm3 (150-375); Red Blood Count 3.73 M/mm3 (4.6-6.20); Red Cell Distribution Width 13.3 % (11.5-14.5); White Blood Count 7.7 K/mm3 (4.5-10.0)
[2021-11-04 05:00] LABS: Anion Gap 4 mmol/L (8-16); Blood Urea Nitrogen 25 mg/dL (9-20); Calcium 9.1 mg/dL (8.4-10.2); Carbon Dioxide 28 mmol/L (22-30); Chloride 106 mmol/L (98-107); Estimated CRCL calculation 45 ml/min; Estimated Glomerular Filt Rate 60; Glucose 133 mg/dL (65-110); Potassium 4.7 mmol/L (3.4-5.0); Sodium 138 mmol/L (137-145)
[2021-11-04 05:04] LABS: Hemoglobin A1C 6.4 % (<5.7)
[2021-11-04] MEDS: lisinopriL 20 MG TABLET PO (07:59)
[2021-11-04] MEDS: allopurinoL 300 MG TABLET PO (07:59)
[2021-11-04] MEDS: NORTRIPTYLINE HCL 25 MG CAPSULE PO (07:59)
[2021-11-04] MEDS: PANTOPRAZOLE 40 MG TABLET PO (07:59)
[2021-11-04] MEDS: MAGNESIUM OXIDE 400 MG TABLET PO ×2 (07:59→16:59)
[2021-11-04] MEDS: ACIDOPHILUS/BULGARICUS CHEWABLE TABLET 1 TABLET PO (07:59)
[2021-11-04] MEDS: carvediloL 12.5 MG TABLET PO ×2 (07:59→19:57)
[2021-11-04] MEDS: ASPIRIN 81 MG CHEWABLE TABLET PO (08:12)
[2021-11-04 09:22] LABS: Glucose Point of Care 96 mg/dl (65-105)
[2021-11-04 11:47] LABS: Glucose Point of Care 129 mg/dl (65-105)
--- NOTE | 2021-11-04 12:49 | PM.PNCARD ---
Progress Note: A&P Assessment and Plan (1) Retrosternal chest pain: Code(s): R07.2 - Precordial pain <ROSEMARIE Silvestre - Last Filed: 11/04/21 14:22> Status: Acute <ROSEMARIE Silvestre - Last Filed: 11/04/21 14:22> Assessment and Plan: At admission, atypical chest pain occurring with eating and drinking, randomly and supposedly with exertion. Concerning worsening fatigue and dyspnea without clear explanation currently resolved. He has ruled out for myocardial infarction with negative serial cardiac enzymes. -Given history of CAD and prior stent implantation ischemic evaluation with Lexiscan nuclear perfusion study warranted which may be performed as an inpatient or outpatient depending on symptoms and clinical status. Currently asymptomatic. -Chest pain possibly GI related due to esophageal spasm, stricture and or GERD/esophagitis but cannot entirely exclude cardiac explanation. Pt. to undergo EGD this afternoon. -2D echo personally reviewed and discussed normal LV wall motion, EF 65-70% normal pulmonary pressures, no significant valve pathology. <ROSEMARIE Silvestre - Last Filed: 11/04/21 14:22> (2) CAD (coronary artery disease): Qualifiers: Associated angina: without angina Coronary Disease-Associated Artery/Lesion type: [place] artery [place] vs. transplanted heart: [place] heart Qualified Code(s): I25.10 - Atherosclerotic heart disease of [place] coronary artery without angina pectoris <ROSEMARIE Silvestre - Last Filed: 11/04/21 14:22> Code(s): I25.10 - Atherosclerotic heart disease of [place] coronary artery without angina pectoris <ROSEMARIE Silvestre - Last Filed: 11/04/21 14:22> Status: Acute <ROSEMARIE Silvestre - Last Filed: 11/04/21 14:22> Assessment and Plan: As above. He is on chronic dual antiplatelet therapy with aspirin and ticagrelor 60 mg b.i.d.. Continue atorvastatin, carvedilol, lisinopril. Continue DAPT. <ROSEMARIE Silvestre - Last Filed: 11/04/21 14:22> (3) Peripheral vascular disease, unspecified: Code(s): I73.9 - Peripheral vascular disease, unspecified <ROSEMARIE Silvestre - Last Filed: 11/04/21 14:22> Status: Chronic <ROSEMARIE Silvestre - Last Filed: 11/04/21 14:22> Assessment and Plan: Stable, no acute issues. Continue aggressive atherosclerotic risk reduction and medical management. <ROSEMARIE Silvestre - Last Filed: 11/04/21 14:22> (4) HTN (hypertension): Code(s): I10 - Essential (primary) hypertension <ROSEMARIE Silvestre - Last Filed: 11/04/21 14:22> Status: Acute <ROSEMARIE Silvestre - Last Filed: 11/04/21 14:22> Assessment and Plan: Remains somewhat poorly controlled despite increasing lisinopril. Will add amlodipine 5mg daily. <ROSEMARIE Silvestre - Last Filed: 11/04/21 14:22> (5) Shortness of breath: Code(s): R06.02 - Shortness of breath <ROSEMARIE Silvestre - Last Filed: 11/04/21 14:22> Status: Acute <ROSEMARIE Silvestre - Last Filed: 11/04/21 14:22> Assessment and Plan: Resolved. Precise etiology remains unclear although initial concern for potential anginal equivalent. He is not decompensated heart failure nor is he hypoxic. CT angio of the chest at admission without PE, dissection, pneumothorax or infiltrate. Dilated pulmonary vasculature suggestive of pulmonary hypertension but not confirmed on echocardiogram. <ROSEMARIE Silvestre - Last Filed: 11/04/21 14:22> (6) GERD (gastroesophageal reflux disease): Code(s): K21.9 - Gastro-esophageal reflux disease without esophagitis <ROSEMARIE Silvestre - Last Filed: 11/04/21 14:22> Status: Acute <ROSEMARIE Silvestre - Last Filed: 11/04/21 14:22> Assessment and Plan: GI consultation noted. Greatly appreciate their recommendations and involvement. <Caro Roper APN-C - [facility]
[2021-11-04] MEDS: ALPRAZolam (*CRX) 0.5 MG TABLET PO (13:25)
--- NOTE | 2021-11-04 13:45 | P.PNIM_ITS ---
Progress Note: A&P Assessment and Plan (1) Retrosternal chest pain: Code(s): R07.2 - Precordial pain Status: Acute Assessment and Plan: Patient presented with 3-4 days of retrosternal pain as detailed in HPI * Appreciate cardiology and gastroenterology consultation * Etiology for these vague and variable symptoms is unclear * Patient does have a history of CAD and stent approximately 5 years ago * Echo reviewed without any evidence of wall motion abnormalities, no significant valvular disease * Troponins negative x3 * EGD this afternoon * If no etiology for symptoms evident on EGD, will plan to proceed with Lexiscan stress test tomorrow * Continue aspirin and Brilinta * Continue Protonix p.o. b.i.d. (2) CAD (coronary artery disease): Qualifiers: Coronary Disease-Associated Artery/Lesion type: [place] artery [place] vs. transplanted heart: [place] heart Associated angina: without angina Qualified Code(s): I25.10 - Atherosclerotic heart disease of [place] coronary artery without angina pectoris Code(s): I25.10 - Atherosclerotic heart disease of [place] coronary artery without angina pectoris Status: Acute Assessment and Plan: Continue dual antiplatelet therapy (3) HTN (hypertension): Code(s): I10 - Essential (primary) hypertension Status: Acute Assessment and Plan: Blood pressures reviewed and have been variable. Last BP 161/58 * Continue carvedilol and lisinopril * Monitor blood pressure trends * Check orthostatic blood pressures (4) GERD (gastroesophageal reflux disease): Code(s): K21.9 - Gastro-esophageal reflux disease without esophagitis Status: Acute Assessment and Plan: Patient states current chest discomfort symptoms are not consistent with GERD * Continue Protonix b.i.d. 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 Blood sugars have been well controlled * Continue Accu-Cheks, sliding scale insulin, hypoglycemic protocol * Monitor glucose trends and adjust as needed * Home metformin on hold Subjective Date/time seen: 11/04/21 13:45 Interval history: Date of service: 11/04/2021 Derek Freeman is a pleasant 71-year-old male with a history anemia, CAD, carotid stenosis, hypertension, hyperlipidemia, prostate cancer, type 2 diabetes mellitus who is seen in follow-up for atypical chest pain. Today his main complaint is that he is feeling anxious about having an EGD done. He also complains of a tickle in his throat but denies cough. When I asked him about any pain in his chest he stated ?I know it is there in ?but it is not bothersome to him. He denies dysphagia or odynophagia. He reported some mild abdominal discomfort today which she attributed to gas. He did have a bowel movement this morning. He denies dysuria. No nausea or vomiting. Today he tells me that he forgot to mention before but he has noticed occasional episodes of lighthead edness that occurred ?out of nowhere.? He states he had an episode yesterday lasted a couple of minutes and another episode today that lasted about 30 seconds. Does not seem to be related to positional changes. Review of Systems Revi
--- NOTE | 2021-11-04 13:45 | PM.IMPN ---
Progress Note: A&P Assessment and Plan (1) Retrosternal chest pain: Code(s): R07.2 - Precordial pain Status: Acute Assessment and Plan: Patient presented with 3-4 days of retrosternal pain as detailed in HPI Appreciate cardiology and gastroenterology consultation Etiology for these vague and variable symptoms is unclear Patient does have a history of CAD and stent approximately 5 years ago Echo reviewed without any evidence of wall motion abnormalities, no significant valvular disease Troponins negative x3 EGD this afternoon If no etiology for symptoms evident on EGD, will plan to proceed with Lexiscan stress test tomorrow Continue aspirin and Brilinta Continue Protonix p.o. b.i.d. (2) CAD (coronary artery disease): Qualifiers: Coronary Disease-Associated Artery/Lesion type: [place] artery [place] vs. transplanted heart: [place] heart Associated angina: without angina Qualified Code(s): I25.10 - Atherosclerotic heart disease of [place] coronary artery without angina pectoris Code(s): I25.10 - Atherosclerotic heart disease of [place] coronary artery without angina pectoris Status: Acute Assessment and Plan: Continue dual antiplatelet therapy (3) HTN (hypertension): Code(s): I10 - Essential (primary) hypertension Status: Acute Assessment and Plan: Blood pressures reviewed and have been variable. Last BP 161/58 Continue carvedilol and lisinopril Monitor blood pressure trends Check orthostatic blood pressures (4) GERD (gastroesophageal reflux disease): Code(s): K21.9 - Gastro-esophageal reflux disease without esophagitis Status: Acute Assessment and Plan: Patient states current chest discomfort symptoms are not consistent with GERD Continue Protonix b.i.d. (5) Diabetes mellitus: Qualifiers: Diabetes mellitus type: type 2 Diabetes mellitus senior living insulin use: without senior living use Diabetes mellitus complication status: with other specified complication Qualified Code(s): E11.69 - Type 2 diabetes mellitus with other specified complication Code(s): E11.9 - Type 2 diabetes mellitus without complications Status: Acute Assessment and Plan: A1c is 6.4. Blood sugars have been well controlled Continue Accu-Cheks, sliding scale insulin, hypoglycemic protocol Monitor glucose trends and adjust as needed Home metformin on hold Subjective Date/time seen: 11/04/21 13:45 Interval history: Date of service: 11/04/2021 Derek Freeman is a pleasant 71-year-old male with a history anemia, CAD, carotid stenosis, hypertension, hyperlipidemia, prostate cancer, type 2 diabetes mellitus who is seen in follow-up for atypical chest pain. Today his main complaint is that he is feeling anxious about having an EGD done. He also complains of a tickle in his throat but denies cough. When I asked him about any pain in his chest he stated ?I know it is there in ?but it is not bothersome to him. He denies dysphagia or odynophagia. He reported some mild abdominal discomfort today which she attributed to gas. He did have a bowel movement this morning. He denies dysuria. No nausea or vomiting. Today he tells me that he forgot to mention before but he has noticed occasional episodes of lightheadedness that occurred ?out of nowhere.? He states he had an episode yesterday lasted a couple of minutes and another episode today that lasted about 30 seconds. Does not seem to be related to positional changes. Review of Systems Review of Systems: All systems reviewed & are unremarkable except as noted in HPI and below Exam Narrative: General: Thin, well-appearing 71 year-old male, lying semirecumbent in bed, comfortable, NARD Neuro: awake, alert and oriented x4, speech clear, no focal neuro deficits noted HEENMT: normocephalic, atraumatic, EOMI, sclerae anicteric Respiratory: clear to auscultation bila
--- NOTE | 2021-11-04 13:55 | WPDANESEPPF ---
Anes - Initial Pre Proc Eval Procedure: Operation Date: 11/04/21 15:00 Proposed Procedures p Esophagogastroduodenoscopy - Adrian Frias MD Date/Time: 11/04/21 13:55 Surgeon: Roya Sullivan PA-C Pre Op Diagnosis: Chest pain/dyspnea Patient Data Age: 71 Gender: M Height: 1.68 m Weight: 72.4 kg Last Vital Signs Temp 36.1 C L 11/04/21 12:00 Pulse 65 11/04/21 12:00 Resp 16 11/04/21 12:00 BP 161/58 H 11/04/21 12:00 Pulse Ox 98 11/04/21 12:00 Allergies Allergy/AdvReac Type Severity Reaction Status Date / Time No Known Allergies Allergy Verified 11/04/21 13:58 Home Medications Medication Instructions Recorded Confirmed Type blood sugar diagnostic #10 each 07/12/19 11/02/21 History blood-glucose meter #1 each 07/12/19 11/02/21 History lisinopril 20 mg tablet 20 mg PO DAILY 07/12/19 11/02/21 History nitroglycerin 0.3 mg sublingual 0.3 mg SUBLINGUAL Q5M PRN 07/12/19 11/02/21 History tablet pantoprazole 40 mg tablet,delayed 40 mg PO DAILY tablet 07/12/19 11/02/21 History release aspirin 81 mg PO DAILY 07/22/19 11/02/21 History acetaminophen [Tylenol Extra 500 mg PO Q4-6H PRN #7 tablet 05/07/20 11/01/21 Rx Strength] alprazolam 0.5 mg tablet 0.5 mg PO TID PRN #10 tablet 10/24/20 11/02/21 Rx Lacto.acidophilus-Bif.animalis 1 tablet PO DAILY 04/22/21 11/02/21 History [Daily Probiotic] atorvastatin 40 mg tablet 80 mg PO HS tablet 04/22/21 11/02/21 History phenylpropanolamine-GG [Trimixol] See Rx Instructions PO .COMPLEX 04/22/21 11/01/21 History carvedilol 25 mg tablet 12.5 mg PO BID tablet 06/06/21 11/02/21 History magnesium oxide 400 mg PO BID #60 cap 08/15/21 11/02/21 Rx nortriptyline 25 mg capsule 25 mg PO DAILY #30 cap 09/19/21 11/02/21 Rx allopurinol 300 mg PO DAILY 11/01/21 11/02/21 History metformin 500 mg PO BID 11/01/21 11/02/21 History ticagrelor [Brilinta] 60 mg PO BID 11/01/21 11/02/21 History Laboratory Tests 11/03/21 11/03/21 11/04/21 15:38 19:53 04:28 WBC 7.7 K/mm3 K/mm3 (4.5-10.0) RBC 3.73 M/mm3 L M/mm3 (4.6-6.20) Hgb 11.5 g/dL L g/dL (14.0-18.0) Hct 34.8 % L % (42.0-52.0) MCV 93.3 fl fl (80-100) MCH 30.8 pg pg (26-34) MCHC 33.0 g/dl g/dl (32-36) RDW 13.3 % % (11.5-14.5) Plt Count 182 k/mm3 k/mm3 (150-375) MPV 10.5 fl H fl (7.4-10.4) Sodium Potassium Chloride Carbon Dioxide Anion Gap BUN Creatinine Estim Creat Clear Calc Estimated GFR Glucose POC Capillary Glucose 107 mg/dl H mg/dl 137 mg/dl H mg/dl (65-105) (65-105) Hemoglobin A1c Calcium 11/04/21 11/04/21 11/04/21 04:28 04:28 08:15 WBC RBC Hgb Hct MCV MCH MCHC RDW Plt Count MPV Sodium 138 mmol/L mmol/L (137-145) Potassium 4.7 mmol/L mmol/L (3.4-5.0) Chloride 106 mmol/L mmol/L (98-107) Carbon Dioxide 28 mmol/L mmol/L (22-30) Anion Gap 4 mmol/L L mmol/L (8-16) BUN 25 mg/dL H mg/dL (9-20) Creatinine 1.20 mg/dL mg/dL (0.7-1.3) Estim Creat Clear Calc 45 ml/min ml/min Estimated GFR 60 (59 - ) Glucose 133 mg/dL H mg/dL (65-110) POC Capillary Glucose 96 mg/dl mg/dl (65-105) Hemoglobin A1c 6.4 % H % (<5.7) Calcium 9.1 mg/dL mg/dL (8.4-10.2) 11/04/21 11:02 WBC RBC Hgb Hct MCV MCH MCHC RDW Plt Count MPV Sodium Potassium Chloride Carbon Dioxide Anion Gap BUN Creatinine Estim Creat Clear Calc Estimated GFR Glucose
[2021-11-04] MEDS: LACTATED RINGERS 1,000 ML 150 ML IV CONT (14:06)
[2021-11-04 16:44] LABS: Glucose Point of Care 100 mg/dl (65-105)
[2021-11-04] MEDS: ATORVASTATIN 40 MG TABLET 80 MG PO (19:57)
[2021-11-04] MEDS: TICAGRELOR 60 MG TABLET PO (19:57)
[2021-11-04 20:43] LABS: Glucose Point of Care 180 mg/dl (65-105)
[2021-11-05] VITALS (22 sets, daily range): BP systolic 102–179; BP diastolic 45–54; PULSE 61–87; RESP 16–20; TEMP 36.1–36.9; O2SAT 97–100
--- NOTE | 2021-11-05 | EST_ITS ---
Patient Info Name: Derek Freeman Age: 71 years : 1950 Gender: Male Ht: 66 in Wt: 159 lbs BSA: 1.84 m2 HR: 65 bpm BP: 152 / 65 mmHg Heart Rhythm: Sinus Rhythm Exam Date: 11/05/2021 12:36 PM Exam Location: [facility] Stress Patient Status: Inpatient Admit Date: 11/02/2021 Staff Ordering Physician: Roya Sullivan PA-C Attending Provider: Roya Sullivan PA-C Exercise Technologist: Fidelia Wilson CT Nurse: candi dorman Exam Type: CA stress marcy w NM Study Info Indications R07.9 - Chest pain, unspecified A regadenoson stress test was performed. History/Risk Factors Coronary Artery Disease (CAD) Yes Summary 1. No abnormal ST/T wave changes with Lexiscan administration. 2. Occasional PVCs during Lexiscan stress administration. 3. Self-limited stress-induced chest pain noted. 4. Please correlate with nuclear medicine images, reported separately. Protocol: Lexiscan Stress ECG Details Stage: REST Duration (min): 1 min : 56 sec HR (bpm): 66 SBP (mmHg): 152 DBP (mmHg): 65 Stage: REST Duration (min): 8 min : 24 sec HR (bpm): 69 SBP (mmHg): 152 DBP (mmHg): 65 Stage: STAGE 1 Duration (min): 1 min : 0 sec HR (bpm): 94 SBP (mmHg): 152 DBP (mmHg): 65 Stage: RECOVERY Duration (min): 1 min : 0 sec HR (bpm): 102 SBP (mmHg): 152 DBP (mmHg): 65 Stage: RECOVERY Duration (min): 2 min : 0 sec HR (bpm): 96 SBP (mmHg): 158 DBP (mmHg): 57 Stage: RECOVERY Duration (min): 3 min : 0 sec HR (bpm): 89 SBP (mmHg): 183 DBP (mmHg): 51 Stage: RECOVERY Duration (min): 3 min : 1 sec HR (bpm): 89 SBP (mmHg): 183 DBP (mmHg): 51 Rest HR: 69 bpm Peak HR: 105 bpm Rest Sys BP: 152 mmHg Peak Sys BP: 183 mmHg Max Pred HR: 148 bpm % Max Pred HR: 71 % Target HR: 126 bpm Max RPP: 19,215 bpm*mmHg BP Response: Normal blood pressure response Termination Reason: Completed protocol Cardiac Symptoms: Chest pain Total Time: 1 min : 0 sec Rest Strong BP: 65 mmHg Peak Strong BP: 51 mmHg Total Dose: 0.4 mg Resting ECG Normal sinus rhythm. PVC. Stress ECG No abnormal ST/T wave changes with Lexiscan administration. Arrhythmias Occasional PVCs during Lexiscan stress administration. Report Signatures
[2021-11-05 08:03] LABS: Glucose Point of Care 122 mg/dl (65-105)
[2021-11-05] MEDS: allopurinoL 300 MG TABLET PO (08:44)
[2021-11-05] MEDS: MAGNESIUM OXIDE 400 MG TABLET PO ×2 (08:46→17:52)
[2021-11-05] MEDS: carvediloL 12.5 MG TABLET PO ×2 (08:46→23:30)
[2021-11-05] MEDS: lisinopriL 20 MG TABLET PO (08:46)
[2021-11-05] MEDS: NORTRIPTYLINE HCL 25 MG CAPSULE PO (08:47)
[2021-11-05] MEDS: TICAGRELOR 60 MG TABLET PO ×2 (08:47→23:30)
[2021-11-05] MEDS: PANTOPRAZOLE 40 MG TABLET PO (08:47)
[2021-11-05] MEDS: SODIUM CHLORIDE 0.9% IV 500 ML 100 ML IV CONT (10:00)
--- NOTE | 2021-11-05 12:57 | PM.PNCARD ---
Progress Note: A&P Assessment and Plan (1) Retrosternal chest pain: Code(s): R07.2 - Precordial pain <ROSEMARIE Silvestre - Last Filed: 11/05/21 13:32> Status: Acute <ROSEMARIE Silvestre - Last Filed: 11/05/21 13:32> Assessment and Plan: At admission, atypical chest pain occurring with eating and drinking, randomly and supposedly with exertion. Concerning worsening fatigue and dyspnea without clear explanation currently resolved. He has ruled out for myocardial infarction with negative serial cardiac enzymes. -Given history of CAD and prior stent implantation ischemic evaluation with Lexiscan nuclear perfusion study warranted which may be performed as an inpatient or outpatient depending on symptoms and clinical status. Currently asymptomatic. -Chest pain possibly GI related due to esophageal spasm, stricture and or GERD/esophagitis but cannot entirely exclude cardiac explanation. EGD negative -Lexiscan stress test today, will leave further recs when results are avaialble. <ROSEMRAIE Silvestre - Last Filed: 11/05/21 13:32> (2) CAD (coronary artery disease): Qualifiers: Associated angina: without angina Coronary Disease-Associated Artery/Lesion type: [place] artery [place] vs. transplanted heart: [place] heart Qualified Code(s): I25.10 - Atherosclerotic heart disease of [place] coronary artery without angina pectoris <ROSEMARIE Silvestre - Last Filed: 11/05/21 13:32> Code(s): I25.10 - Atherosclerotic heart disease of [place] coronary artery without angina pectoris <ROSEMARIE Silvestre - Last Filed: 11/05/21 13:32> Status: Acute <ROSEMARIE Silvestre - Last Filed: 11/05/21 13:32> Assessment and Plan: As above. He is on chronic dual antiplatelet therapy with aspirin and ticagrelor 60 mg b.i.d.. Continue atorvastatin, carvedilol, lisinopril. Continue DAPT. <ROSEMARIE Silvestre - Last Filed: 11/05/21 13:32> (3) Peripheral vascular disease, unspecified: Code(s): I73.9 - Peripheral vascular disease, unspecified <ROSEMARIE Silvestre - Last Filed: 11/05/21 13:32> Status: Chronic <ROSEMARIE Silvestre - Last Filed: 11/05/21 13:32> Assessment and Plan: Stable, no acute issues. Continue aggressive atherosclerotic risk reduction and medical management. <ROSEMARIE Silvestre - Last Filed: 11/05/21 13:32> (4) HTN (hypertension): Code(s): I10 - Essential (primary) hypertension <ROSEMARIE Silvestre - Last Filed: 11/05/21 13:32> Status: Acute <ROSEMARIE Silvestre - Last Filed: 11/05/21 13:32> Assessment and Plan: Better controlled at present <ROSEMARIE Silvestre - Last Filed: 11/05/21 13:32> (5) Shortness of breath: Code(s): R06.02 - Shortness of breath <ROSEMARIE Silvestre - Last Filed: 11/05/21 13:32> Status: Acute <ROSEMARIE Silvestre - Last Filed: 11/05/21 13:32> Assessment and Plan: Resolved. Precise etiology remains unclear although initial concern for potential anginal equivalent. He is not decompensated heart failure nor is he hypoxic. CT angio of the chest at admission without PE, dissection, pneumothorax or infiltrate. Dilated pulmonary vasculature suggestive of pulmonary hypertension but not confirmed on echocardiogram. <ROSEMARIE Silvestre - Last Filed: 11/05/21 13:32> (6) GERD (gastroesophageal reflux disease): Code(s): K21.9 - Gastro-esophageal reflux disease without esophagitis <ROSEMARIE Silvestre - Last Filed: 11/05/21 13:32> Status: Acute <ROSEMARIE Silvestre - Last Filed: 11/05/21 13:32> Assessment and Plan: GI consultation noted. Greatly appreciate their recommendations and involvement. <ROSEMARIE Silvestre - Last Filed: 11/05/21 13:32> Additional Plan Attending Addendum: I have personally seen and examined this patient at bedside. I agree with the abo
[2021-11-05 13:31] LABS: Glucose Point of Care 128 mg/dl (65-105)
[2021-11-05] MEDS: ACIDOPHILUS/BULGARICUS CHEWABLE TABLET 1 TABLET PO (14:55)
[2021-11-05] MEDS: ASPIRIN 81 MG CHEWABLE TABLET PO (14:55)
[2021-11-05 15:47] LABS: Glucose Point of Care 178 mg/dl (65-105)
--- NOTE | 2021-11-05 16:28 | P.PNIM_ITS ---
Progress Note: A&P Assessment and Plan (1) Retrosternal chest pain: Code(s): R07.2 - Precordial pain Status: Acute Assessment and Plan: Patient presented with 3-4 days of retrosternal pain as detailed in HPI * Appreciate cardiology and gastroenterology consultation * Etiology for these vague and variable symptoms is unclear * Patient does have a history of CAD and stent approximately 5 years ago * Echo reviewed without any evidence of wall motion abnormalities, no significant valvular disease * Troponins negative x3 * EGD performed on 11/04/21 with no findings to explain sx * Lexiscan stress test without ischemia or infarct * Continue aspirin and Brilinta * Continue Protonix p.o. b.i.d. (2) Orthostatic hypotension: Code(s): I95.1 - Orthostatic hypotension Status: Acute Assessment and Plan: Found to be orthostatic today with 77 point drop in systolic BP from supine to standing * 500 cc IV fluids. Encourage adequate PO fluid intake * DEAN hose * Discontinue amlodipine * Decrease lisinopril to 10 mg daily * Continue to monitor orthostatics * Implement fall precautions (3) CAD (coronary artery disease): Qualifiers: Coronary Disease-Associated Artery/Lesion type: [place] artery [place] vs. transplanted heart: [place] heart Associated angina: without angina Qualified Code(s): I25.10 - Atherosclerotic heart disease of [place] coronary artery without angina pectoris Code(s): I25.10 - Atherosclerotic heart disease of [place] coronary artery without angina pectoris Status: Acute Assessment and Plan: Continue dual antiplatelet therapy (4) HTN (hypertension): Code(s): I10 - Essential (primary) hypertension Status: Acute Assessment and Plan: Blood pressures reviewed and have been variable. He is orthostatic * Continue carvedilol and lisinopril at reduced dose * Monitor blood pressure trends (5) GERD (gastroesophageal reflux disease): Code(s): K21.9 - Gastro-esophageal reflux disease without esophagitis Status: Acute Assessment and Plan: Patient states current chest discomfort symptoms are not consistent with GERD * Continue Protonix b.i.d. (6) Diabetes mellitus: Qualifiers: Diabetes mellitus type: type 2 Diabetes mellitus senior care insulin use: without senior care use Diabetes mellitus complication status: with other specified complication Qualified Code(s): E11.69 - Type 2 diabetes mellitus with other specified complication Code(s): E11.9 - Type 2 diabetes mellitus without complications Status: Acute Assessment and Plan: A1c is 6.4. Blood sugars have been well controlled * Continue Accu-Cheks, sliding scale insulin, hypoglycemic protocol * Monitor glucose trends and adjust as needed * Home metformin on hold Subjective Date/time seen: 11/05/21 16:28 Interval history: Date of service: 11/05/2021 Derek Freeman is a pleasant 71-year-old male with a history anemia, CAD, carotid stenosis, hypertension, hyperlipidemia, prostate cancer, type 2 diabetes mellitus who is seen in follow-up for atypical chest pain. He feels well today. Still endorsing some mid sternal discomfort but he states he cannot rate this on a scale of 1-10 as it is barely noticeable. No episodes of dizziness or lightheadedness today. No N/V. No SOB or JARA. He was NPO while awaiting his stress test. He has no additional concerns today. Review of Systems Review of Systems: All systems reviewed & are unremarkable excep
--- NOTE | 2021-11-05 16:28 | PM.IMPN ---
Progress Note: A&P Assessment and Plan (1) Retrosternal chest pain: Code(s): R07.2 - Precordial pain Status: Acute Assessment and Plan: Patient presented with 3-4 days of retrosternal pain as detailed in HPI Appreciate cardiology and gastroenterology consultation Etiology for these vague and variable symptoms is unclear Patient does have a history of CAD and stent approximately 5 years ago Echo reviewed without any evidence of wall motion abnormalities, no significant valvular disease Troponins negative x3 EGD performed on 11/04/21 with no findings to explain sx Lexiscan stress test without ischemia or infarct Continue aspirin and Brilinta Continue Protonix p.o. b.i.d. (2) Orthostatic hypotension: Code(s): I95.1 - Orthostatic hypotension Status: Acute Assessment and Plan: Found to be orthostatic today with 77 point drop in systolic BP from supine to standing 500 cc IV fluids. Encourage adequate PO fluid intake DEAN hose Discontinue amlodipine Decrease lisinopril to 10 mg daily Continue to monitor orthostatics Implement fall precautions (3) CAD (coronary artery disease): Qualifiers: Coronary Disease-Associated Artery/Lesion type: [place] artery [place] vs. transplanted heart: [place] heart Associated angina: without angina Qualified Code(s): I25.10 - Atherosclerotic heart disease of [place] coronary artery without angina pectoris Code(s): I25.10 - Atherosclerotic heart disease of [place] coronary artery without angina pectoris Status: Acute Assessment and Plan: Continue dual antiplatelet therapy (4) HTN (hypertension): Code(s): I10 - Essential (primary) hypertension Status: Acute Assessment and Plan: Blood pressures reviewed and have been variable. He is orthostatic Continue carvedilol and lisinopril at reduced dose Monitor blood pressure trends (5) GERD (gastroesophageal reflux disease): Code(s): K21.9 - Gastro-esophageal reflux disease without esophagitis Status: Acute Assessment and Plan: Patient states current chest discomfort symptoms are not consistent with GERD Continue Protonix b.i.d. (6) Diabetes mellitus: Qualifiers: Diabetes mellitus type: type 2 Diabetes mellitus terminal supervisor insulin use: without group home use Diabetes mellitus complication status: with other specified complication Qualified Code(s): E11.69 - Type 2 diabetes mellitus with other specified complication Code(s): E11.9 - Type 2 diabetes mellitus without complications Status: Acute Assessment and Plan: A1c is 6.4. Blood sugars have been well controlled Continue Accu-Cheks, sliding scale insulin, hypoglycemic protocol Monitor glucose trends and adjust as needed Home metformin on hold Subjective Date/time seen: 11/05/21 16:28 Interval history: Date of service: 11/05/2021 Derek Freeman is a pleasant 71-year-old male with a history anemia, CAD, carotid stenosis, hypertension, hyperlipidemia, prostate cancer, type 2 diabetes mellitus who is seen in follow-up for atypical chest pain. He feels well today. Still endorsing some mid sternal discomfort but he states he cannot rate this on a scale of 1-10 as it is barely noticeable. No episodes of dizziness or lightheadedness today. No N/V. No SOB or JARA. He was NPO while awaiting his stress test. He has no additional concerns today. Review of Systems Review of Systems: All systems reviewed & are unremarkable except as noted in HPI and below Exam Narrative: General: Thin, well-appearing 71 year-old male, lying semirecumbent in bed, comfortable, NARD Neuro: awake, alert and oriented x4, speech clear, no focal neuro deficits noted HEENMT: normocephalic, atraumatic, EOMI, sclerae anicteric Respiratory: clear to auscultation bilaterally, nonlabored breathing Cardio: regular rate, regular rhythm with S1-S2 Abdomen: nondiste
[2021-11-05 20:39] LABS: Glucose Point of Care 138 mg/dl (65-105)
[2021-11-05] MEDS: ATORVASTATIN 40 MG TABLET 80 MG PO (23:29)
[2021-11-06] VITALS (28 sets, daily range): BP systolic 90–176; BP diastolic 40–72; PULSE 54–79; RESP 16–18; TEMP 36.1–36.7; O2SAT 96–99
[2021-11-06 05:09] LABS: Hematocrit 35.3 % (42.0-52.0); Hemoglobin 11.7 g/dL (14.0-18.0); Mean Corpuscular HGB Conc 33.1 g/dl (32-36); Mean Corpuscular Hemoglobin 30.6 pg (26-34); Mean Corpuscular Volume 92.4 fl (80-100); Mean Platelet Volume 11.2 fl (7.4-10.4); Platelet Count Result 186 k/mm3 (150-375); Red Blood Count 3.82 M/mm3 (4.6-6.20); Red Cell Distribution Width 13.4 % (11.5-14.5)
[2021-11-06 05:14] LABS: Anion Gap 5 mmol/L (8-16); Blood Urea Nitrogen 24 mg/dL (9-20); Calcium 9.2 mg/dL (8.4-10.2); Carbon Dioxide 28 mmol/L (22-30); Chloride 103 mmol/L (98-107); Estimated CRCL calculation 45 ml/min; Estimated Glomerular Filt Rate 60; Glucose 140 mg/dL (65-110); Potassium 4.2 mmol/L (3.4-5.0); Sodium 136 mmol/L (137-145)
[2021-11-06] MEDS: NORTRIPTYLINE HCL 25 MG CAPSULE PO (08:52)
[2021-11-06] MEDS: MAGNESIUM OXIDE 400 MG TABLET PO ×2 (08:53→17:10)
[2021-11-06] MEDS: PANTOPRAZOLE 40 MG TABLET PO (08:53)
[2021-11-06] MEDS: lisinopriL 10 MG TABLET PO (08:53)
[2021-11-06] MEDS: carvediloL 12.5 MG TABLET PO ×2 (08:53→20:43)
[2021-11-06] MEDS: ASPIRIN 81 MG CHEWABLE TABLET PO (08:55)
[2021-11-06] MEDS: allopurinoL 300 MG TABLET PO (08:55)
[2021-11-06] MEDS: ACIDOPHILUS/BULGARICUS CHEWABLE TABLET 1 TABLET PO (08:55)
[2021-11-06] MEDS: TICAGRELOR 60 MG TABLET PO ×2 (08:56→20:43)
--- NOTE | 2021-11-06 09:01 | PC.NURSE ---
Patient states he is dizzy upon standing. Educated patient regarding importance of calling for assistance.
[2021-11-06 09:15] LABS: Glucose Point of Care 125 mg/dl (65-105)
[2021-11-06] MEDS: SODIUM CHLORIDE 0.9% IV 250 ML 100 ML IV CONT (12:15)
[2021-11-06 12:38] LABS: Glucose Point of Care 196 mg/dl (65-105)
--- NOTE | 2021-11-06 13:19 | P.PNIM_ITS ---
Progress Note: A&P Assessment and Plan (1) Retrosternal chest pain: Code(s): R07.2 - Precordial pain Status: Acute Assessment and Plan: Patient presented with 3-4 days of retrosternal pain as detailed in HPI * Appreciate cardiology and gastroenterology consultation * Etiology for these vague and variable symptoms is unclear * Patient does have a history of CAD and stent approximately 5 years ago * Echo reviewed without any evidence of wall motion abnormalities, no significant valvular disease * Troponins negative x3 * EGD performed on 11/04/21 with no findings to explain sx * Lexiscan stress test without ischemia or infarct * Continue aspirin and Brilinta * Continue Protonix p.o. b.i.d. * Symptoms have resolved (2) Orthostatic hypotension: Code(s): I95.1 - Orthostatic hypotension Status: Acute Assessment and Plan: he is quite orthostatic and symptomatic with this * systolic BP 174 while supine this morning, decline to 90 systolic on standing * he endorses dizziness and lightheadedness * received h0.5 liters of IV fluids yesterday, administer 250 cc today * continue [place] hose * amlodipine discontinued * lisinopril decreased to 10 mg daily * appreciate cardiology assistance in managing his blood pressure medications * implement fall precautions * continue to monitor orthostatics * appreciate PT/OT eval (3) CAD (coronary artery disease): Qualifiers: Coronary Disease-Associated Artery/Lesion type: [place] artery [place] vs. transplanted heart: [place] heart Associated angina: without angina Qualified Code(s): I25.10 - Atherosclerotic heart disease of [place] coronary artery without angina pectoris Code(s): I25.10 - Atherosclerotic heart disease of [place] coronary artery without angina pectoris Status: Acute Assessment and Plan: Continue dual antiplatelet therapy (4) HTN (hypertension): Code(s): I10 - Essential (primary) hypertension Status: Acute Assessment and Plan: Blood pressures reviewed and have been variable. He is orthostatic * Continue carvedilol and lisinopril at reduced dose * Monitor blood pressure trends (5) Diabetes mellitus: Qualifiers: Diabetes mellitus type: type 2 Diabetes mellitus terminal supervisor insulin use: without terminal supervisor use Diabetes mellitus complication status: with other specified complication Qualified Code(s): E11.69 - Type 2 diabetes mellitus with other specified complication Code(s): E11.9 - Type 2 diabetes mellitus without complications Status: Acute Assessment and Plan: A1c is 6.4. Blood sugars have been fairly well controlled * Continue Accu-Cheks, sliding scale insulin, hypoglycemic protocol * Monitor glucose trends and adjust as needed * Home metformin on hold Subjective Date/time seen: 11/06/21 13:19 Interval history: Date of service: 11/05/2021 Derek Freeman is a pleasant 71-year-old male with a history anemia, CAD, carotid stenosis, hypertension, hyperlipidemia, prostate cancer, type 2 diabetes mellitus who is seen in follow-up for atypical chest painAnd orthostatic hy potension. He endorses lightheadedness with positional changes and this morning he felt lightheaded even well laying in bed. He stated this lasted about an hour. His chest pain has resolved. He denies dysphagia. No abdominal pain. No nausea, vomiting, fever, or chills. Denies JARA. He admits to feeling unsteady on his feet. Review of Systems Review of Systems: All systems reviewed & are unrema
--- NOTE | 2021-11-06 13:19 | PM.IMPN ---
Progress Note: A&P Assessment and Plan (1) Retrosternal chest pain: Code(s): R07.2 - Precordial pain Status: Acute Assessment and Plan: Patient presented with 3-4 days of retrosternal pain as detailed in HPI Appreciate cardiology and gastroenterology consultation Etiology for these vague and variable symptoms is unclear Patient does have a history of CAD and stent approximately 5 years ago Echo reviewed without any evidence of wall motion abnormalities, no significant valvular disease Troponins negative x3 EGD performed on 11/04/21 with no findings to explain sx Lexiscan stress test without ischemia or infarct Continue aspirin and Brilinta Continue Protonix p.o. b.i.d. Symptoms have resolved (2) Orthostatic hypotension: Code(s): I95.1 - Orthostatic hypotension Status: Acute Assessment and Plan: he is quite orthostatic and symptomatic with this systolic BP 174 while supine this morning, decline to 90 systolic on standing he endorses dizziness and lightheadedness received h0.5 liters of IV fluids yesterday, administer 250 cc today continue Mt roldane amlodipine discontinued lisinopril decreased to 10 mg daily appreciate cardiology assistance in managing his blood pressure medications implement fall precautions continue to monitor orthostatics appreciate PT/OT eval (3) CAD (coronary artery disease): Qualifiers: Coronary Disease-Associated Artery/Lesion type: [place] artery [place] vs. transplanted heart: [place] heart Associated angina: without angina Qualified Code(s): I25.10 - Atherosclerotic heart disease of [place] coronary artery without angina pectoris Code(s): I25.10 - Atherosclerotic heart disease of [place] coronary artery without angina pectoris Status: Acute Assessment and Plan: Continue dual antiplatelet therapy (4) HTN (hypertension): Code(s): I10 - Essential (primary) hypertension Status: Acute Assessment and Plan: Blood pressures reviewed and have been variable. He is orthostatic Continue carvedilol and lisinopril at reduced dose Monitor blood pressure trends (5) Diabetes mellitus: Qualifiers: Diabetes mellitus type: type 2 Diabetes mellitus care home insulin use: without care home use Diabetes mellitus complication status: with other specified complication Qualified Code(s): E11.69 - Type 2 diabetes mellitus with other specified complication Code(s): E11.9 - Type 2 diabetes mellitus without complications Status: Acute Assessment and Plan: A1c is 6.4. Blood sugars have been fairly well controlled Continue Accu-Cheks, sliding scale insulin, hypoglycemic protocol Monitor glucose trends and adjust as needed Home metformin on hold Subjective Date/time seen: 11/06/21 13:19 Interval history: Date of service: 11/05/2021 Derek Freeman is a pleasant 71-year-old male with a history anemia, CAD, carotid stenosis, hypertension, hyperlipidemia, prostate cancer, type 2 diabetes mellitus who is seen in follow-up for atypical chest painAnd orthostatic hypotension. He endorses lightheadedness with positional changes and this morning he felt lightheaded even well laying in bed. He stated this lasted about an hour. His chest pain has resolved. He denies dysphagia. No abdominal pain. No nausea, vomiting, fever, or chills. Denies JARA. He admits to feeling unsteady on his feet. Review of Systems Review of Systems: All systems reviewed & are unremarkable except as noted in HPI and below Exam Narrative: General: Thin, well-appearing 71 year-old male, sitting up in bed, comfortable, NARD Neuro: awake, alert and oriented x4, speech clear, no focal neuro deficits noted HEENMT: normocephalic, atraumatic, EOMI, sclerae anicteric Respiratory: clear to auscultation bilaterally, nonlabored breathing Cardio: regular rate, regular rhythm with S1-S2 Ab
--- NOTE | 2021-11-06 14:36 | PCCCNOTE ---
On 11/06/21, the student, [Rina Dash], provided care and [facility]. I have reviewed the student's documentation and agree with the findings.
--- NOTE | 2021-11-06 14:42 | PM.PNCARD ---
Progress Note: A&P Assessment and Plan (1) Orthostatic hypotension: Code(s): I95.1 - Orthostatic hypotension Status: Acute Assessment and Plan: Chronic issue as reported by patient more prominent of late. IV normal saline 250 cc bolus. Repeat orthostatics thereafter. Lower extremity compression stockings. Plan rise slowly from seated position. If severe and symptomatic low-dose midodrine 2.5 mg in a.m. and midday he considered but caution to monitor for severe supine hypertension. (2) Retrosternal chest pain: Code(s): R07.2 - Precordial pain Status: Acute Assessment and Plan: At admission, atypical chest pain occurring with eating and drinking, randomly and supposedly with exertion. Concerning worsening fatigue and dyspnea without clear explanation currently resolved. He has ruled out for myocardial infarction with negative serial cardiac enzymes. -Given history of CAD and prior stent implantation ischemic evaluation with Lexiscan nuclear perfusion study warranted which may be performed as an inpatient or outpatient depending on symptoms and clinical status. Currently asymptomatic. -Chest pain possibly GI related due to esophageal spasm, stricture and or GERD/esophagitis but cannot entirely exclude cardiac explanation. EGD negative -Lexiscan stress test negative for ischemia. No further workup at this time. (3) CAD (coronary artery disease): Qualifiers: Coronary Disease-Associated Artery/Lesion type: [place] artery [place] vs. transplanted heart: [place] heart Associated angina: without angina Qualified Code(s): I25.10 - Atherosclerotic heart disease of [place] coronary artery without angina pectoris Code(s): I25.10 - Atherosclerotic heart disease of [place] coronary artery without angina pectoris Status: Acute Assessment and Plan: As above. He is on chronic dual antiplatelet therapy with aspirin and ticagrelor 60 mg b.i.d.. Continue atorvastatin, carvedilol, lisinopril. Continue DAPT. (4) Peripheral vascular disease, unspecified: Code(s): I73.9 - Peripheral vascular disease, unspecified Status: Chronic Assessment and Plan: Stable, no acute issues. Continue aggressive atherosclerotic risk reduction and medical management. (5) HTN (hypertension): Code(s): I10 - Essential (primary) hypertension Status: Acute Assessment and Plan: Better controlled at present but with significant orthostatic hypotension (6) Shortness of breath: Code(s): R06.02 - Shortness of breath Status: Acute Assessment and Plan: Resolved. Precise etiology remains unclear although initial concern for potential anginal equivalent. He is not decompensated heart failure nor is he hypoxic. CT angio of the chest at admission without PE, dissection, pneumothorax or infiltrate. Dilated pulmonary vasculature suggestive of pulmonary hypertension but not confirmed on echocardiogram. (7) GERD (gastroesophageal reflux disease): Code(s): K21.9 - Gastro-esophageal reflux disease without esophagitis Status: Acute Assessment and Plan: Stable. Subjective Date/time seen: Date of service: 11/06/21 14:42 Follow-up for chest pain, shortness of breath, orthostatic hypotension, history of CAD Denies chest pain or significant shortness of breath. Does note significant dizziness upon standing which has worsened since admission. Significant orthostatic hypotension documented. No palpitations. Maintaining sinus rhythm. He has no other complaints. Review of Systems Review of Systems: All systems reviewed & are unremarkable except as noted in HPI and below Constitutional: Constitutional: Reports as per HPI, Reports no additional constitutional complaints, Denies chills, Denies excessive sweating, Denies fatigue, Denies lethargy and Denies weight gain Eyes: Eyes: Reports as per HPI and Reports no additional eye complaints ENT: Rep
[2021-11-06 16:58] LABS: Glucose Point of Care 138 mg/dl (65-105)
[2021-11-06 20:15] LABS: Glucose Point of Care 153 mg/dl (65-105)
[2021-11-06] MEDS: ATORVASTATIN 40 MG TABLET 80 MG PO (20:43)
[2021-11-07] VITALS (12 sets, daily range): BP systolic 106–169; BP diastolic 41–53; PULSE 58–73; RESP 16–18; TEMP 36.2–36.6; O2SAT 97–100
[2021-11-07] MEDS: ACETAMINOPHEN 500 MG TABLET PO (02:23)
[2021-11-07] MEDS: ALPRAZolam (*CRX) 0.5 MG TABLET PO (02:24)
[2021-11-07] MEDS: carvediloL 12.5 MG TABLET PO (07:59)
[2021-11-07] MEDS: PANTOPRAZOLE 40 MG TABLET PO (07:59)
[2021-11-07] MEDS: ACIDOPHILUS/BULGARICUS CHEWABLE TABLET 1 TABLET PO (07:59)
[2021-11-07] MEDS: allopurinoL 300 MG TABLET PO (07:59)
[2021-11-07] MEDS: ASPIRIN 81 MG CHEWABLE TABLET PO (07:59)
[2021-11-07] MEDS: TICAGRELOR 60 MG TABLET PO (07:59)
[2021-11-07] MEDS: lisinopriL 10 MG TABLET PO (07:59)
[2021-11-07] MEDS: NORTRIPTYLINE HCL 25 MG CAPSULE PO (07:59)
[2021-11-07] MEDS: MAGNESIUM OXIDE 400 MG TABLET PO (07:59)
[2021-11-07 08:21] LABS: Glucose Point of Care 113 mg/dl (65-105)
--- NOTE | 2021-11-07 10:01 | PM.PNCARD ---
Progress Note: A&P Assessment and Plan (1) Orthostatic hypotension: Code(s): I95.1 - Orthostatic hypotension Status: Acute Assessment and Plan: Chronic issue as reported by patient more prominent of late. Much improved after IV normal saline 250 cc bolus with symptomatic resolution. Repeat orthostatics this a.m.. Lower extremity compression stockings. Plan rise slowly from seated position. Consultation on avoidance of dehydration, rising slowly from seated position to avoid risk for falls and injuries. Patient verbalized understanding. Carvedilol reduced for additional support in this regard. 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 Stable for discharge home from cardiovascular perspective. Disposition per hospitalist service. (2) Retrosternal chest pain: Code(s): R07.2 - Precordial pain Status: Acute Assessment and Plan: Resolved, ruled out for CA. Negative stress test, echocardiogram unremarkable. EGD fairly unremarkable as well. -Lexiscan stress test negative for ischemia. No further workup at this time. (3) CAD (coronary artery disease): Qualifiers: Associated angina: without angina Coronary Disease-Associated Artery/Lesion type: [place] artery [place] vs. transplanted heart: [place] heart Qualified Code(s): I25.10 - Atherosclerotic heart disease of [place] coronary artery without angina pectoris Code(s): I25.10 - Atherosclerotic heart disease of [place] coronary artery without angina pectoris Status: Acute Assessment and Plan: As above. He is on chronic dual antiplatelet therapy with aspirin and ticagrelor 60 mg b.i.d.. Continue atorvastatin, carvedilol, lisinopril. Continue DAPT. (4) Peripheral vascular disease, unspecified: Code(s): I73.9 - Peripheral vascular disease, unspecified Status: Chronic Assessment and Plan: Stable, no acute issues. Continue aggressive atherosclerotic risk reduction and medical management. (5) HTN (hypertension): Code(s): I10 - Essential (primary) hypertension Status: Acute Assessment and Plan: Better controlled at present orthostatic but improved with resolution of symptoms after IV fluids. (6) Shortness of breath: Code(s): R06.02 - Shortness of breath Status: Acute Assessment and Plan: Resolved. Not in heart failure. (7) GERD (gastroesophageal reflux disease): Code(s): K21.9 - Gastro-esophageal reflux disease without esophagitis Status: Acute Assessment and Plan: Stable. PPI. Subjective Date/time seen: Date of service: 11/07/21 10:01 Follow-up for chest pain, orthostatic hypertension, CAD Patient feeling much better this morning. Denies any dizziness, chest pain or shortness of breath. States he felt IV fluids given yesterday helped him a lot. Orthostatics persistent but much less severe. Patient feels best he has in quite a while. Review of Systems Review of Systems: All systems reviewed & are unremarkable except as noted in HPI and below Constitutional: Constitutional: Reports as per HPI, Reports no additional constitutional complaints, Denies chills, Denies excessive sweating, Denies fatigue, Denies lethargy and Denies weight gain Eyes: Eyes: Reports as per HPI and Reports no additional eye complaints ENT: Reports system reviewed and no additional complaints, except as documented, Reports as per HPI, Denies dysphagia and Reports odynophagia Cardiovascular: Cardiovascular: Reports as per HPI, Reports no additional cardiovascular complaints, Denies chest pain, Reports chest pain at rest, Reports chest pain with activity, Denies pedal edema (Left foot), Denies lightheadedness and Denies dyspnea on exertion Respiratory: Respiratory: Reports as per HPI, Reports no additional respiratory complaints and Denies dyspnea on exertion Gastrointestinal: Gastrointestinal: Reports as per HPI, Rep
[2021-11-07 12:17] LABS: Glucose Point of Care 216 mg/dl (65-105)
[2021-11-07] MEDS: INSULIN ASPART (*BKC) 100 UNITS/ML SUB-Q (12:27)
--- NOTE | 2021-11-07 13:20 | PM.DS ---
DS: Admitting Diagnosis Discharge Date 11/07/2021 Admitting Diagnosis 1) Retrosternal Chest Pain 2) CAD 3) HTN 4) HLD 5) GERD 6) DM DS: Discharge Diagnosis Discharge Diagnosis (1) Retrosternal chest pain: Code(s): R07.2 - Precordial pain Status: Acute Assessment and Plan: Patient presented with 3-4 days of retrosternal pain as detailed in HPI Cardiology consulted and no further recommendations were made. His pain was atypical, and was ruled out for ACS with negative serial CE's. Lexiscan was performed on 11/05/21 and was negative with an EF of 66%. Etiology for these vague and variable symptoms is unclear Patient does have a history of CAD and stent approximately 5 years ago Echo reviewed without any evidence of wall motion abnormalities, no significant valvular disease EGD performed on 11/04/21 with no findings to explain sx Continue aspirin and Brilinta Continue Protonix p.o. b.i.d. Symptoms have resolved Will have patient follow up with Cardiology as outpatient. (2) Orthostatic hypotension: Code(s): I95.1 - Orthostatic hypotension Status: Acute Assessment and Plan: he is quite orthostatic and symptomatic with this Improved and asymptomatic with orthostats. amlodipine discontinued until following up with PCP for recheck. Will have patient keep a log of BP's and take with him to next appointment. lisinopril decreased to 10 mg daily (3) CAD (coronary artery disease): Qualifiers: Coronary Disease-Associated Artery/Lesion type: [place] artery [place] vs. transplanted heart: [place] heart Associated angina: without angina Qualified Code(s): I25.10 - Atherosclerotic heart disease of [place] coronary artery without angina pectoris Code(s): I25.10 - Atherosclerotic heart disease of [place] coronary artery without angina pectoris Status: Acute Assessment and Plan: Continue dual antiplatelet therapy (4) HTN (hypertension): Code(s): I10 - Essential (primary) hypertension Status: Acute Assessment and Plan: Blood pressures reviewed and have been variable. He is orthostatic Continue carvedilol and lisinopril at reduced dose, and do not restart Amlodipine. Monitor blood pressure trends with home log and take to PCP with him to see if Amlodipine is necessary to restart. (5) Diabetes mellitus: Qualifiers: Diabetes mellitus type: type 2 Diabetes mellitus jail insulin use: without jail use Diabetes mellitus complication status: with other specified complication Qualified Code(s): E11.69 - Type 2 diabetes mellitus with other specified complication Code(s): E11.9 - Type 2 diabetes mellitus without complications Status: Acute Assessment and Plan: A1c is 6.4. Blood sugars have been fairly well controlled Continue home medication regimen. DS: Summary Hospital Course Reason for hospitalization: Chest pain, dizziness and orthostasis. Hospital Course: This pleasant, 71 year old male patient with significant PMH of CAD with stenting, DM, HTN, HLD who originally presented to the ER with complaints of having CP worse with coughing, and and swelling to his left leg for one month prior. In ER workup was performed that showed mild hyperkalemia of 5.1, D-dimer of 1.17, and two negative troponin's. Imaging was unremarkable with regards to CXR, Venous Doppler, and also CTA of chest. During his admission he was evaluated by both Cardiology and Gastroenterology. He underwent EGD that showed no acute findings and was actually normal. In addition, he had a Lexiscan and ECHO that were ordered and interpreted by Cardiology. Lexiscan was normal without any ischemia and normal EF. ECHO was without any gross abnormality of valve or wall functions with an EF of 66%. While here he did have a significant Orthostatic BP. His Amlodipine was held and his Lisinopril dose was decreased to 10 mg and he improved. He is no long
== END 2021-11-07 14:25 | disposition home or self-care (01) | DRG 313 ==
LOC: ANHED 10:49 → ANHIMU 17:22
PROVIDERS: Internal Medicine Gastroenterology; Physician Assistant; Admitting Provider Internal Medicine; Emergency Provider General Practice; PCP Family Medicine; Visit Provider Nurse Practitioner Adult Health
PROC: 0DJ08ZZ Inspection of Upper Intestinal Tract, Via Natural or Artificial Opening Endoscopic (ICD-10-PCS; CPT 43235; principal; 2021-11-04 15:00)
DX: R07.2 Precordial pain (principal); I95.1 Orthostatic hypotension; I25.10 Atherosclerotic heart disease of native coronary artery without angina pectoris; R13.10 Dysphagia, unspecified; K21.9 Gastro-esophageal reflux disease without esophagitis; K52.831 Collagenous colitis; E78.5 Hyperlipidemia, unspecified; E87.5 Hyperkalemia; E78.00 Pure hypercholesterolemia, unspecified; E11.51 Type 2 diabetes mellitus with diabetic peripheral angiopathy without gangrene; F32.A Depression, unspecified; H40.9 Unspecified glaucoma; H91.90 Unspecified hearing loss, unspecified ear; I65.29 Occlusion and stenosis of unspecified carotid artery; I10 Essential (primary) hypertension; M10.9 Gout, unspecified; R06.02 Shortness of breath; Z86.718 Personal history of other venous thrombosis and embolism; Z95.5 Presence of coronary angioplasty implant and graft; Z85.46 Personal history of malignant neoplasm of prostate; Z98.49 Cataract extraction status, unspecified eye; Z90.79 Acquired absence of other genital organ(s); Z96.0 Presence of urogenital implants; Z87.891 Personal history of nicotine dependence; Z79.84 Long term (current) use of oral hypoglycemic drugs; Z79.02 Long term (current) use of antithrombotics/antiplatelets; Z28.21 Immunization not carried out because of patient refusal
CPT/HCPCS: 36415; 71046; 71275; 78452; 80048; 80053; 82948; 83036; 83690; 83735; 84484; 85025; 85027; 85380; 85610; 85730; 88305; 88342; 93005; 93017; 93306; 93971; 97161; 97165; 99285; A9270; A9502; G0378; J1815; J2704; J2785; J7040; J7050; J7120; Q9967

== ENCOUNTER 2021-12-05 14:43 | Emergency (ER) | payer MEDICARE, SELFPAY ==
[2021-12-05 14:53] VITALS: BP 166/65; PULSE 78; RESP 18; TEMP 36.4; O2SAT 99
--- NOTE | 2021-12-05 14:53 | ED.WOUNDLAC ---
HPI - Wound/Laceration General Chief Complaint: Skin/Abscess/Foreign Body Stated Complaint: wound check Time Seen by Provider: 12/05/21 14:53 Source: patient Mode of arrival: ambulatory Limitations: no limitations History of Present Illness HPI narrative: 71-year-old male presents with skin tear to right upper arm. Was walking by a dry erase board and hit his arm on the eraser singh. Reports that his tetanus is up-to-date. Has been applying pressure since noon and is still bleeding. Patient does take a blood thinner. All systems reviewed and negative except as noted above. Related Data Home Medications Medication Instructions Recorded Confirmed allopurinol 300 mg PO DAILY 12/05/21 12/05/21 atorvastatin 80 mg PO DAILY 12/05/21 12/05/21 carvedilol 12.5 mg PO BID 12/05/21 12/05/21 lisinopril 10 mg PO DAILY 12/05/21 12/05/21 magnesium oxide 400 mg PO BID 12/05/21 12/05/21 nitroglycerin 0.3 mg SUBLINGUAL DIRECTED 12/05/21 12/05/21 ticagrelor [Brilinta] 60 mg PO BID 12/05/21 12/05/21 Allergies Allergy/AdvReac Type Severity Reaction Status Date / Time No Known Allergies Allergy Verified 12/05/21 14:59 Review of Systems Review of Systems: CONSTITUTIONAL: Denies fever, chills, or sweats. EYES: Denies visual changes, redness, or discharge. ENT: Denies rhinorrhea, congestion, sore throat, or otalgia. CARDIOVASCULAR: Denies chest pain, palpitations, or edema. RESPIRATORY: Denies cough or dyspnea. GASTROINTESTINAL: Denies abdominal pain, nausea, vomiting, or diarrhea. GENITOURINARY: Denies dysuria or hematuria. SKIN: Denies rash or itching. Reports skin tear to right upper arm. MUSCULOSKELETAL: Denies back pain, joint pain, or myalgia. NEUROLOGIC: Denies headache, numbness, or weakness. PSYCHIATRIC: Denies anxiety or depression. All other systems reviewed are negative, except as documented in HPI. [facility] Past Medical History Medical History 1st MTP arthritis Adenomatous colon polyp Anemia BMI 25.0-25.9,adult BMI 25.0-25.9,adult BMI 26.0-26.9,adult BMI 26.0-26.9,adult BMI between 19-24,adult CAD (coronary artery disease) Carotid stenosis, asymptomatic h/o intracranial cerebral stenosis, evaluated at [place] 05/2019, thought not to be symptomatic cont med tx. Chills Collagenous colitis Colonoscopy planned Depression Dysphagia Fever GERD (gastroesophageal reflux disease) Glaucoma Gout (~08/2019) Groin discomfort High cholesterol HLD (hyperlipidemia) HTN (hypertension) Left shoulder pain Light headedness Microscopic colitis Personal history of DVT (deep vein thrombosis) Prostate cancer Right shoulder pain Shortness of breath Stenosis of infrarenal abdominal aorta due to arteriosclerosis Says his aorta is mildly enlarged Tendinitis of both rotator cuffs Type 2 diabetes mellitus without complications Wears glasses Surgical History Surgical History H/O cardiac catheterization H/O cystoscopy H/O heart artery stent H/O rectal polypectomy History of cataract surgery History of colonoscopy 2019 History of prostatectomy Had prostate cancer, status post prostatectomy and later radiation therapy. Has an implanted device to help with urinary incontinence. S/P arthroscopic surgery of left knee Family History Family History Father , of lung cancer age 83 Hypertension Sibling Hypertension Mother Family history of malignant neoplasm of breast in first degree relative Breast cancer of breast cancer age 37 Sibling No problems noted. 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
== END 2021-12-05 15:12 | disposition home or self-care (01) ==
PROVIDERS: Emergency Provider Nurse Practitioner Family; PCP Family Medicine
DX: S41.111A Laceration without foreign body of right upper arm, initial encounter (principal); W22.8XXA Striking against or struck by other objects, initial encounter; Z87.891 Personal history of nicotine dependence; Z95.5 Presence of coronary angioplasty implant and graft; I25.10 Atherosclerotic heart disease of native coronary artery without angina pectoris; I65.29 Occlusion and stenosis of unspecified carotid artery; K21.9 Gastro-esophageal reflux disease without esophagitis; H40.9 Unspecified glaucoma; M10.9 Gout, unspecified; E78.00 Pure hypercholesterolemia, unspecified; E78.5 Hyperlipidemia, unspecified; Z86.718 Personal history of other venous thrombosis and embolism; Z85.46 Personal history of malignant neoplasm of prostate; Z90.79 Acquired absence of other genital organ(s); E11.9 Type 2 diabetes mellitus without complications
CPT/HCPCS: 99212; G0463

== ENCOUNTER 2022-01-19 13:51 | Emergency (ER) | payer MEDICARE, SELFPAY ==
[2022-01-19 13:56] VITALS: BP 126/64; PULSE 79; RESP 18; TEMP 36.3; O2SAT 100
--- NOTE | 2022-01-19 14:25 | ED.GENADULT ---
HPI - General Adult General Chief complaint: Dental/Oral Stated complaint: Bottom Lip Bleeding Source: patient Mode of arrival: ambulatory Limitations: no limitations History of Present Illness HPI narrative: Pt presents for evaluation of bleeding from his lower lip. He states he was eating a sandwich just [employer] when he noted blood oozing from the lower lip. He does not remember biting his lip. He denies significant pain in the area. He attempted to apply pressure but sanguinous drainage has continue to ooze from the area. He states he takes Brilinta and baby aspirin. Denies other blood thinners. He drinks beer a few days per week. No additional complaints or concerns. Related Data Home Medications Medication Instructions Recorded Confirmed allopurinol 300 mg PO DAILY 12/05/21 01/19/22 atorvastatin 80 mg PO DAILY 12/05/21 01/19/22 carvedilol 12.5 mg PO BID 12/05/21 01/19/22 magnesium oxide 400 mg PO BID 12/05/21 01/19/22 nitroglycerin 0.3 mg SUBLINGUAL PRN PRN 12/05/21 01/19/22 ticagrelor [Brilinta] 60 mg PO BID 12/05/21 01/19/22 aspirin 81 mg tablet,delayed 81 mg PO DAILY 12/06/21 01/19/22 release lisinopril 10 mg tablet 20 mg PO DAILY tablet 12/06/21 01/19/22 Allergies Allergy/AdvReac Type Severity Reaction Status Date / Time No Known Allergies Allergy Verified 01/19/22 13:59 Review of Systems Review of Systems: CONSTITUTIONAL: Denies fever, chills, or sweats. EYES: Denies visual changes, redness, or discharge. ENT: Denies rhinorrhea, congestion, sore throat, or otalgia. Reports small amount of bleeding from lower lip. CARDIOVASCULAR: Denies chest pain, palpitations, or edema. RESPIRATORY: Denies cough or dyspnea. GASTROINTESTINAL: Denies abdominal pain, nausea, vomiting, or diarrhea. GENITOURINARY: Denies dysuria or hematuria. SKIN: Denies rash or itching. MUSCULOSKELETAL: Denies back pain, joint pain, or myalgia. NEUROLOGIC: Denies headache, numbness, dizziness, or weakness. PSYCHIATRIC: Denies anxiety or depression. [facility] Past Medical History Medical History 1st MTP arthritis Adenomatous colon polyp Anemia BMI 25.0-25.9,adult BMI 25.0-25.9,adult BMI 26.0-26.9,adult BMI 26.0-26.9,adult BMI between 19-24,adult CAD (coronary artery disease) Carotid stenosis, asymptomatic h/o intracranial cerebral stenosis, evaluated at [place] 05/2019, thought not to be symptomatic cont med tx. Chills Collagenous colitis Colonoscopy planned Depression Dysphagia Fever GERD (gastroesophageal reflux disease) Glaucoma Gout (~08/2019) Groin discomfort High cholesterol HLD (hyperlipidemia) HTN (hypertension) Left shoulder pain Light headedness Microscopic colitis Personal history of DVT (deep vein thrombosis) Prostate cancer Right shoulder pain Shortness of breath Stenosis of infrarenal abdominal aorta due to arteriosclerosis Says his aorta is mildly enlarged Tendinitis of both rotator cuffs Type 2 diabetes mellitus without complications Wears glasses Surgical History Surgical History H/O cardiac catheterization H/O cystoscopy H/O heart artery stent H/O rectal polypectomy History of cataract surgery History of colonoscopy 2019 History of prostatectomy Had prostate cancer, status post prostatectomy and later radiation therapy. Has an implanted device to help with urinary incontinence. S/P arthroscopic surgery of left knee Family History Family History Father , of lung cancer age 83 Hypertension Sibling Hypertension Mother Family history of malignant neoplasm of breast in first degree relative Breast cancer of breast cancer age 37 Sibling No problems noted. Other Diabetes mellitus Family history of cardiovascular disease Family history of elevated blood lipids Fam
== END 2022-01-19 14:45 | disposition home or self-care (01) ==
PROVIDERS: Emergency Provider Nurse Practitioner; PCP Family Medicine
DX: S01.531A Puncture wound without foreign body of lip, initial encounter (principal); X58.XXXA Exposure to other specified factors, initial encounter; Z87.891 Personal history of nicotine dependence; I25.10 Atherosclerotic heart disease of native coronary artery without angina pectoris; I65.29 Occlusion and stenosis of unspecified carotid artery; K21.9 Gastro-esophageal reflux disease without esophagitis; E11.39 Type 2 diabetes mellitus with other diabetic ophthalmic complication; H40.9 Unspecified glaucoma; H42 Glaucoma in diseases classified elsewhere; E78.00 Pure hypercholesterolemia, unspecified; E78.5 Hyperlipidemia, unspecified; I10 Essential (primary) hypertension; Z86.718 Personal history of other venous thrombosis and embolism; Z85.46 Personal history of malignant neoplasm of prostate; Z95.5 Presence of coronary angioplasty implant and graft; Z90.79 Acquired absence of other genital organ(s)
CPT/HCPCS: 99213; G0463

== ENCOUNTER 2022-02-06 10:53 | Outpatient (CLI) | payer MEDICARE, SELFPAY ==
[2022-02-06 11:12] LABS: Hematocrit 34.3 % (42.0-52.0); Hemoglobin 11.5 g/dL (14.0-18.0); Mean Corpuscular HGB Conc 33.5 g/dl (32-36); Mean Corpuscular Hemoglobin 31.7 pg (26-34); Mean Corpuscular Volume 94.5 fl (80-100); Mean Platelet Volume 10.3 fl (7.4-10.4); Platelet Count Result 207 k/mm3 (150-375); Red Blood Count 3.63 M/mm3 (4.6-6.20); Red Cell Distribution Width 13.5 % (11.5-14.5); White Blood Count 8.4 K/mm3 (4.5-10.0)
[2022-02-06 11:42] LABS: Anion Gap 6 mmol/L (8-16); Blood Urea Nitrogen 30 mg/dL (9-20); Calcium 9.4 mg/dL (8.4-10.2); Carbon Dioxide 24 mmol/L (22-30); Chloride 107 mmol/L (98-107); Estimated Glomerular Filt Rate 60; Glucose 128 mg/dL (65-110); Magnesium 1.8 mg/dL (1.6-2.3); Potassium 5.1 mmol/L (3.4-5.0); Sodium 137 mmol/L (137-145)
== END 2022-02-06 10:54 | disposition home or self-care (01) ==
LOC: ANHLAB 10:55
PROVIDERS: PCP Family Medicine; Visit Provider Family Medicine
DX: I10 Essential (primary) hypertension (principal)
CPT/HCPCS: 36415; 80048; 83735; 85027

== ENCOUNTER 2022-02-21 09:06 | Outpatient (CLI) | payer MEDICARE, SELFPAY ==
[2022-02-21 09:48] LABS: Anion Gap 6 mmol/L (8-16); Blood Urea Nitrogen 31 mg/dL (9-20); Calcium 9.5 mg/dL (8.4-10.2); Carbon Dioxide 24 mmol/L (22-30); Chloride 107 mmol/L (98-107); Estimated Glomerular Filt Rate 50; Glucose 120 mg/dL (65-110); Potassium 4.9 mmol/L (3.4-5.0); Sodium 137 mmol/L (137-145)
== END 2022-02-21 09:07 | disposition home or self-care (01) ==
LOC: ANHLAB 09:08
PROVIDERS: PCP Family Medicine; Visit Provider Physician Assistant Medical
DX: E87.5 Hyperkalemia (principal)
CPT/HCPCS: 36415; 80048

== ENCOUNTER 2022-03-04 10:01 | Outpatient (CLI) | payer MEDICARE, SELFPAY ==
[2022-03-04 10:30] LABS: Anion Gap 4 mmol/L (8-16); Blood Urea Nitrogen 26 mg/dL (9-20); Calcium 9.3 mg/dL (8.4-10.2); Carbon Dioxide 23 mmol/L (22-30); Chloride 108 mmol/L (98-107); Estimated Glomerular Filt Rate 60; Glucose 225 mg/dL (65-110); Potassium 4.3 mmol/L (3.4-5.0); Sodium 135 mmol/L (137-145)
== END 2022-03-04 10:02 | disposition home or self-care (01) ==
PROVIDERS: PCP Family Medicine
DX: Z79.899 Other long term (current) drug therapy (principal); I10 Essential (primary) hypertension
CPT/HCPCS: 36415; 80048

== ENCOUNTER 2022-03-14 18:11 | Observation (INO) | payer MEDICARE, SELFPAY ==
[2022-03-14] VITALS (19 sets, daily range): BP systolic 164–217; BP diastolic 47–72; PULSE 71–95; RESP 13–22; TEMP 36.1–37.8; O2SAT 98–100; BMI 25.4
--- NOTE | ~2022-03-14 | XR_ITS ---
EXAMINATION: XR chest 2V 03/14/2022 19:20 INDICATION: Chest pain PROCEDURE: 2 view chest COMPARISON: Comparison to multiple prior studies sequentially, with oldest reviewed study dated 06/02. FINDINGS: The lungs are clear. The cardiomediastinal silhouette is within normal limits. There are no pleural effusions. There is no pneumothorax suspected. There is atherosclerosis of the aorta. Ce ntral pulmonary arteries are enlarged suggesting pulmonary arterial hypertension. IMPRESSION: 1: NO ACUTE CARDIOPULMONARY DISEASE. Reviewed, dictated and finalized at location A.
--- NOTE | 2022-03-14 18:50 | ECG_ITS ---
Measurements Intervals [place] Rate: 93 P: 37 NH: 180 QRS: -8 QRSD: 106 T: 49 QT: 336 QTc: 418 Interpretive Statements SINUS RHYTHM DELAYED PRECORDIAL R/S TRANSITION BORDERLINE ECG Electronically Signed On 03-16-2022 22:46:45 CDT by Jovanny Mcduffie D.O.
[2022-03-14 19:14] LABS: Basophils Percent Auto 0.5 % (0.2-1.2); Eosinophils Absolute Auto 0.2 K/mm3 (0-0.3); Eosinophils Percent Auto 1.7 % (0-4.4); Hematocrit 33.8 % (42.0-52.0); Hemoglobin 11.4 g/dL (14.0-18.0); Immature Granulocyte Absolute 0.02 K/mm3 (0.00-0.031); Immature Granulocyte Percent A 0.2 % (0-0.5); Lymphocytes Absolute Auto 1.73 K/mm3 (0.9-3.2); Lymphocytes Percent Auto 19.8 % (18.3-44.2); Mean Corpuscular HGB Conc 33.7 g/dl (32-36); Mean Corpuscular Hemoglobin 31.8 pg (26-34); Mean Corpuscular Volume 94.2 fl (80-100); Mean Platelet Volume 10.5 fl (7.4-10.4); Monocytes Absolute Auto 0.7 K/mm3 (0.1-0.6); Monocytes Percent Auto 7.8 % (2.6-8.5); Neutrophils Absolute Auto 6.1 K/mm3 (1.3-6.7); Platelet Count Result 180 k/mm3 (150-375); Red Blood Count 3.59 M/mm3 (4.6-6.20); Red Cell Distribution Width 13.8 % (11.5-14.5); White Blood Count 8.7 K/mm3 (4.5-10.0)
[2022-03-14 19:25] LABS: INR 1.1; Partial Thromboplastin Time 28.4 SECONDS (22.3-36.8); Prothrombin Time 13.3 Seconds (11.1-14.7)
[2022-03-14 19:30] LABS: Alanine Aminotransferase 26 U/L (6-50); Alkaline Phosphatase 105 U/L (38-126); Anion Gap 4 mmol/L (8-16); Aspartate Amino Transferase 32 U/L (17-59); Bilirubin,Total 0.7 mg/dL (0.2-1.3); Blood Urea Nitrogen 25 mg/dL (9-20); Calcium 9.1 mg/dL (8.4-10.2); Carbon Dioxide 26 mmol/L (22-30); Chloride 106 mmol/L (98-107); Estimated CRCL calculation 49 ml/min; Estimated Glomerular Filt Rate > 60; Glucose 94 mg/dL (65-110); Lipase 123 U/L (23-300); Potassium 4.5 mmol/L (3.4-5.0); Sodium 136 mmol/L (137-145)
[2022-03-14 19:36] LABS: Troponin I < 0.012 ng/mL (0.000-0.034)
--- NOTE | 2022-03-14 19:39 | ED.CHESTPAIN ---
HPI - Chest Pain General Chief Complaint: Chest Pain Stated Complaint: CHRISTENSEN Time Seen by Provider: 03/14/22 19:11 History of Present Illness HPI narrative: This is a 71-year-old male past medical history of coronary artery disease status post stent in 2017 and repeat cath in 2019, who presents to the emergency department complaining of headache and chest pain. He states symptoms began this morning, initially with a headache. Noted left-sided pressure-like chest pain, 4 out of 10, not radiating, not associated with weakness or numbness, that persisted until approximately 1 hour after arrival. This is aggravated with physical exertion, but no specific alleviating factors. He denies shortness of breath, weakness/numbness, or palpitations. Related Data Home Medications Medication Instructions Recorded Confirmed allopurinol 300 mg tablet 300 mg PO DAILY 12/05/21 02/06/22 atorvastatin 80 mg tablet 80 mg PO DAILY 12/05/21 02/06/22 carvedilol 12.5 mg tablet 12.5 mg PO BID 12/05/21 02/06/22 nitroglycerin 0.3 mg sublingual 0.3 mg sublingual PRN PRN Chest 12/05/21 02/06/22 tablet Pain ticagrelor 60 mg tablet (Brilinta) 60 mg PO BID 12/05/21 02/06/22 aspirin 81 mg tablet,delayed 81 mg PO DAILY 12/06/21 02/06/22 release (Adult Aspirin Regimen) lisinopril 10 mg tablet 20 mg PO DAILY 12/06/21 02/06/22 Allergies Allergy/AdvReac Type Severity Reaction Status Date / Time No Known Allergies Allergy Verified 03/14/22 18:52 Review of Systems Review of Systems: CONSTITUTIONAL: Denies fever, chills, or sweats. EYES: Denies visual changes, redness, or discharge. ENT: Denies rhinorrhea, congestion, sore throat, or otalgia. CARDIOVASCULAR: chest pain as in HPI, Denies palpitations, or edema. RESPIRATORY: Denies cough or dyspnea. GASTROINTESTINAL: Denies abdominal pain, nausea, vomiting, or diarrhea. SKIN: Denies rash or itching. MUSCULOSKELETAL: Denies back pain, joint pain, or myalgia. NEUROLOGIC: Denies headache, numbness, dizziness, or weakness. PSYCHIATRIC: Denies anxiety or depression. [facility] Past Medical History Medical History 1st MTP arthritis Adenomatous colon polyp Anemia BMI 25.0-25.9,adult BMI 25.0-25.9,adult BMI 26.0-26.9,adult BMI 26.0-26.9,adult BMI between 19-24,adult CAD (coronary artery disease) Carotid stenosis, asymptomatic h/o intracranial cerebral stenosis, evaluated at [place] 05/2019, thought not to be symptomatic cont med tx. Chills Collagenous colitis Colonoscopy planned Depression Dysphagia Fever GERD (gastroesophageal reflux disease) Glaucoma Gout (~08/2019) Groin discomfort High cholesterol HLD (hyperlipidemia) HTN (hypertension) Left shoulder pain Light headedness Microscopic colitis Personal history of DVT (deep vein thrombosis) Prostate cancer Right shoulder pain Shortness of breath Stenosis of infrarenal abdominal aorta due to arteriosclerosis Says his aorta is mildly enlarged Tendinitis of both rotator cuffs Type 2 diabetes mellitus without complications Wears glasses Surgical History Surgical History H/O cardiac catheterization H/O cystoscopy H/O heart artery stent H/O rectal polypectomy History of cataract surgery History of colonoscopy 2019 History of prostatectomy Had prostate cancer, status post prostatectomy and later radiation therapy. Has an implanted device to help with urinary incontinence. S/P arthroscopic surgery of left knee Family History Family History Father , of lung cancer age 83 Hypertension Sibling Hypertension Mother Family history of malignant neoplasm of breast in first degree relative Breast cancer of breast cancer age 37 Sibling No problems noted. Other Diabetes mellitus Family history of cardiovascular disease Family histo
[2022-03-14] MEDS: ACETAMINOPHEN 325 MG TABLET 650 MG PO (19:51)
--- NOTE | 2022-03-14 21:30 | PC.NURSE ---
Waiting on carvedilol from pharmacy at this time. Have called twice about receiving the med and still have not received it.
--- NOTE | 2022-03-14 22:03 | PM.IMHP ---
H&P: HPI History of Present Illness Date/Time: 03/14/222149 Chief Complaint: Chest Pain Narrative: This very pleasant 71-year-old male patient with significant past medical history of coronary artery disease status post stent in 2017 and repeat catheterization in 2019 on chronic Brilinta and aspirin therapies, DM2, DVT x2, Chronic nicotine user, prostate cancer status post bladder stimulator placement, small-bowel obstructions, melanoma and gout presents to the emergency room this evening with complaints of having left-sided chest pain that started approximately 4:00 p.m. this afternoon and lasted for couple of hours. He describes the pain as a dull ache, Nothing makes better, movement makes worse, there is no radiation of the pain, he denies any associated dyspnea, nausea vomiting, or sweating. He endorses a he woke this morning and he had a headache in he has had elevated blood pressure all day despite taking his home medications. upon arrival to the emergency room EKG was obtained and he was noted to be unchanged from his previous EKG in shows normal sinus rhythm with a rate of 80. No prolongation of QTC And no ischemic changes present. He was administered 324 mg of aspirin inpatient endorse that his headache had resolved and his chest pain had also resolved. Labs are unremarkable specifically with 1st troponin being within normal limits. Second troponin is currently pending. Chest x-ray was performed and demonstrated no acute cardiopulmonary disease. patient is being admitted to hospitalist service at this time for further rule out of ACS with serial troponins and EKGs. In addition patient will remain on telemetry for monitoring. At the time of my exam patient denies any chest pain, headache, dyspnea, nausea, vomiting, diarrhea, urinary complaints. He states all of his symptoms have since resolved but does agree to observation overnight secondary to his risk of cardiac event secondary to his coronary artery disease history. Heart score is 5 ( 0 points for history, 1.4 nonspecific repolarization disturbance, 2 points for age, 2 points for risk factors and 0.4 normal initial troponin) TABBY Score is 4 ( 1.4 age, 1.4 coronary artery disease risk factors, 1.4 aspirin use in 7 days, 1 point for severe angina within 24 hours). it is also noted in patient's workup that he has a low-grade temperature of 100.1?. This will be monitored, he will have p.r.n. Tylenol. Chest x-ray was not indicative of any acute infection. Will order UA if Has not already been obtained. Patient is not toxic appearance. Review of most recent cardiac testing was performed by reviewing EMR. Echocardiogram was performed November 02, 2021 and demonstrated normal left ventricular chamber dimension, normal left ventricular systolic function with EF of 65-70% with mildly increased left ventricular wall thickness grade 1 diastolic dysfunction is present mild mitral valve regurgitation and no aortic valve stenosis Lexiscan stress test was performed on November 05, 2021 and demonstrated no definite ischemia or infarct and a normal left ventricular ejection fraction measuring 66%. Normal stress test. Review of Systems Review of Systems: All systems reviewed & are unremarkable except as noted in HPI and below [facility] Past Medical History Medical History 1st MTP arthritis Adenomatous colon polyp Anemia BMI 25.0-25.9,adult BMI 25.0-25.9,adult BMI 26.0-26.9,adult BMI 26.0-26.9,adult BMI between 19-24,adult CAD (coronary artery disease) Carotid stenosis, asymptomatic h/o intracranial cerebral stenosis, evaluated at [place] 05/2019, thought not to be symptomatic cont med tx. Chills Collagenous colitis Colonoscopy planned Depression Dysphagia Fever GERD (gastroesophageal reflux disease) Glaucoma Gout (~08/2019) Groin discomfort High cholesterol HLD (hyperlipidemia) HTN (hypertension) Left shoulder pain Light h
[2022-03-14 22:29] LABS: Troponin I < 0.012 ng/mL (0.000-0.034)
--- NOTE | 2022-03-14 22:45 | PC.NURSE ---
This patient, Derek Freeman, was admitted to IMU Room 212-01 at 2230. Patient/family oriented to hospital policies and general routines including ID bracelet, bed and alarms, visiting hours, pain management, procedures, bathroom and other care routines, personal items, smoking policy, room service/diet, and visiting hours. Information on how to activate the Rapid Response Team has been discussed. Patient/Family are encouraged to report perceived risks to care and to ask questions if they do not understand what they are told or what they should do.
[2022-03-14 22:52] LABS: Hemoglobin A1C 6.6 % (<5.7)
[2022-03-14] MEDS: NORTRIPTYLINE HCL 25 MG CAPSULE PO (23:01)
[2022-03-14] MEDS: TICAGRELOR 60 MG TABLET PO (23:01)
[2022-03-14] MEDS: carvediloL 6.25 MG TABLET PO (23:01)
[2022-03-15] VITALS (10 sets, daily range): BP systolic 125–157; BP diastolic 47–50; PULSE 67–84; RESP 16–18; TEMP 36.6–36.8; O2SAT 99–100
[2022-03-15 01:37] LABS: Troponin I < 0.012 ng/mL (0.000-0.034)
[2022-03-15 04:17] LABS: Basophils Percent Auto 0.6 % (0.2-1.2); Eosinophils Absolute Auto 0.1 K/mm3 (0-0.3); Hematocrit 31.6 % (42.0-52.0); Hemoglobin 10.5 g/dL (14.0-18.0); Immature Granulocyte Absolute 0.02 K/mm3 (0.00-0.031); Immature Granulocyte Percent A 0.3 % (0-0.5); Lymphocytes Absolute Auto 1.83 K/mm3 (0.9-3.2); Lymphocytes Percent Auto 26.4 % (18.3-44.2); Mean Corpuscular HGB Conc 33.2 g/dl (32-36); Mean Corpuscular Hemoglobin 31.1 pg (26-34); Mean Corpuscular Volume 93.5 fl (80-100); Mean Platelet Volume 9.9 fl (7.4-10.4); Monocytes Absolute Auto 0.7 K/mm3 (0.1-0.6); Monocytes Percent Auto 10.1 % (2.6-8.5); Neutrophils Absolute Auto 4.2 K/mm3 (1.3-6.7); Neutrophils Percent Auto 60.6 % (45.5-73.1); Platelet Count Result 156 k/mm3 (150-375); Red Blood Count 3.38 M/mm3 (4.6-6.20); Red Cell Distribution Width 13.9 % (11.5-14.5); White Blood Count 6.9 K/mm3 (4.5-10.0)
[2022-03-15 04:27] LABS: Anion Gap 2 mmol/L (8-16); Blood Urea Nitrogen 21 mg/dL (9-20); Carbon Dioxide 29 mmol/L (22-30); Chloride 107 mmol/L (98-107); Estimated CRCL calculation 49 ml/min; Estimated Glomerular Filt Rate > 60; Glucose 160 mg/dL (65-110); Magnesium 1.8 mg/dL (1.6-2.3); Potassium 3.8 mmol/L (3.4-5.0); Sodium 138 mmol/L (137-145)
[2022-03-15 08:04] LABS: Glucose Point of Care 115 mg/dl (65-105)
[2022-03-15] MEDS: ATORVASTATIN 40 MG TABLET 80 MG PO (08:46)
[2022-03-15] MEDS: TICAGRELOR 60 MG TABLET PO (08:46)
[2022-03-15] MEDS: allopurinoL 300 MG TABLET PO (08:46)
[2022-03-15] MEDS: MAGNESIUM OXIDE 400 MG TABLET PO (08:46)
[2022-03-15] MEDS: carvediloL 12.5 MG TABLET PO (08:46)
[2022-03-15] MEDS: PANTOPRAZOLE 40 MG TABLET PO (08:47)
[2022-03-15] MEDS: ASPIRIN 81 MG ENTERIC TABLET PO (10:48)
--- NOTE | 2022-03-15 11:06 | PM.DS ---
DS: Admitting Diagnosis Discharge Date March 15, 2022 Admitting Diagnosis Chest pain DS: Discharge Diagnosis Discharge Diagnosis (1) Chest pain: Code(s): R07.9 - Chest pain, unspecified Status: Acute Assessment and Plan: - admit to rule out ACS, low suspicion in current setting - Serial troponins/EKGs negative -pain is subsequent resolved. Low suspicion this is cardiac. Patient does follow with a internal control specialist regularly. No further workup indicated at this time. Lengthy discussion with the patient he is wanting to be discharged to go see his internal control specialist after discharge. 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 daily. (6) Coronary artery disease: Code(s): I25.10 - Atherosclerotic heart disease of [place] coronary artery without angina pectoris Status: Chronic Assessment and Plan: Continue his home medications. - Review of previous cardiac workup is as follows: Echocardiogram was performed November 02, 2021 and demonstrated normal left ventricular chamber dimension, normal left ventricular systolic function with EF of 65-70% with mildly increased left ventricular wall thickness grade 1 diastolic dysfunction is present mild mitral valve regurgitation and no aortic valve stenosis. Lexiscan stress test was performed on November 05, 2021 and demonstrated no definite ischemia or infarct and a normal left ventricular ejection fraction measuring 66%. Normal stress test. (7) Gout: Onset Date: ~08/2019 Qualifiers: Gout site: multiple sites Gout etiology: idiopathic Chronicity: chronic Presence of tophus: without tophus Qualified Code(s): M1A.09X0 - Idiopathic chronic gout, multiple sites, without tophus (tophi) Code(s): M10.9 - Gout, unspecified Status: Chronic Assessment and Plan: - Continue allopurinol - renal function noted to be normal. DS: Summary Hospital Course Hospital Course: See discharge plan diagnoses Time Spent with Patient Time attestation: Total time spent providing and/or coordinating discharge services: Exam Const: General: comfortable and no acute distress HENMT: Ears: TM's normal bilaterally General nose exam: Normal nares present Mouth: Yes moist mucous membranes Eyes: General: appearance normal, both eyes and all related structures Sclera: sclerae normal Pupils: Equal, round and reactive pupils present EOM: EOMs intact bilaterally Neck: Neck: supple and no JVD Carotids: no bruits Lymphatic: lymphadenopathy not noted Chest: Other: Not tender to palpation. Resp: Effort & Inspection: normal respiratory effort Auscultation: clear to auscultation bilaterally Cardio: Rate: regular rate Rhythm: regular rhythm Heart sounds: no gallops, no murmurs and no rubs GI: Inspection: non-distended Auscultation: normal bowel sounds Skin: General skin exam: normal color and no rashes or lesions noted Lesions: no lesions noted Rashes: no rashes noted Wounds: no wounds Neuro: General: gait normal Cranial nerves: Yes Equal, round and reactive pupils present Speech: normal speech Motor exam (neuro): 5/5 motor strength present throughout and Normal motor muscle tone present throughout Sensory Exam: normal
== END 2022-03-15 11:30 | disposition home or self-care (01) ==
LOC: ANHED 21:47 → ANHIMU 22:57
PROVIDERS: Nurse Practitioner Adult Health; Admitting Provider Internal Medicine; Emergency Provider Preventive Medicine Aerospace Medicine; PCP Family Medicine; Visit Provider Chiropractor
DX: R07.9 Chest pain, unspecified (principal); R51.9 Headache, unspecified; I25.10 Atherosclerotic heart disease of native coronary artery without angina pectoris; I10 Essential (primary) hypertension; E11.9 Type 2 diabetes mellitus without complications; E78.2 Mixed hyperlipidemia; M10.9 Gout, unspecified; K21.9 Gastro-esophageal reflux disease without esophagitis; H40.9 Unspecified glaucoma; F32.A Depression, unspecified; Z85.46 Personal history of malignant neoplasm of prostate; Z86.718 Personal history of other venous thrombosis and embolism; Z95.5 Presence of coronary angioplasty implant and graft; Z92.3 Personal history of irradiation; Z87.891 Personal history of nicotine dependence; Z79.01 Long term (current) use of anticoagulants; Z79.82 Long term (current) use of aspirin
CPT/HCPCS: 36415; 71046; 80048; 80053; 82948; 83036; 83690; 83735; 84484; 85025; 85610; 85730; 93005; 99285; A9270; G0378

== ENCOUNTER → 2022-04-01 15:27 | Outpatient (REF) | payer MEDICARE, SELFPAY | LOC: ANHLAB 15:27 | PROVIDERS: PCP Family Medicine; Visit Provider Nurse Practitioner | DX: D49.2 Neoplasm of unspecified behavior of bone, soft tissue, and skin (principal) | CPT/HCPCS: 88304 ==

== ENCOUNTER 2022-04-17 08:26 | Outpatient (CLI) | payer MEDICARE, SELFPAY ==
--- NOTE | 2022-04-17 11:00 | NEURO_ITS ---
Impression: # Complains of dropping things and hands shaking. # This is an abnormal study due to the presence of bilateral Carpal Tunnel Syndrome. # As well as bilateral sensorimotor ulnar neuropathy. # Normal needle/EMG exam. Nerve Conduction Studies Anti Sensory Summary Table Stim Site NR Peak (ms) P-T Amp (?V) Site1 Site2 Delta-P (ms) Dist (cm) Parish (m/s) Left Median Anti Sensory (2-3nd Digit) Wrist 4.7 41.0 Wrist 2-3nd Digit 4.7 14.0 30 Wrist 5.2 32.8 Wrist 2-3nd Digit 4.7 14.0 30 Right Median Anti Sensory (2-3nd Digit) Wrist 4.3 30.1 Wrist 2-3nd Digit 4.3 14.0 33 Wrist 4.5 42.6 Wrist 2-3nd Digit 4.3 14.0 33 Left Radial Anti Sensory (Base 1st Digit) Wrist 2.7 42.6 Wrist Base 1st Digit 2.7 0.0 Right Radial Anti Sensory (Base 1st Digit) Wrist 2.3 49.5 Wrist Base 1st Digit 2.3 0.0 Left Ulnar Anti Sensory (5th Digit) Wrist 4.0 46.3 Wrist 5th Digit 4.0 14.0 35 Right Ulnar Anti Sensory (5th Digit) Wrist 4.0 30.5 Wrist 5th Digit 4.0 14.0 35 Motor Summary Table Stim Site NR Onset (ms) O-P Amp (mV) Site1 Site2 Delta-0 (ms) Dist (cm) Parish (m/s) Left Median Motor (Abd Poll Brev) Wrist 4.6 5.4 Elbow Wrist 3.7 20.0 54 Elbow 8.3 4.8 Right Median Motor (Abd Poll Brev) Wrist 4.1 4.3 Elbow Wrist 4.0 21.0 53 Elbow 8.1 3.7 Left Ulnar Motor (Abd Dig Minimi) Wrist 3.6 4.7 A Elbow Wrist 5.9 27.0 46 A Elbow 9.5 3.7 B Elbow Wrist 3.7 20.0 54 B Elbow 7.3 3.8 Right Ulnar Motor (Abd Dig Minimi) Wrist 3.0 6.3 A Elbow Wrist 6.4 26.0 41 A Elbow 9.4 4.5 B Elbow Wrist 4.0 18.0 45 B Elbow 7.0 4.8 F Wave Studies NR F-Lat (ms) L-R F-Lat (ms) Left Median (Mrkrs) (Abd Poll Brev) 30.49 1.21 Right Median (Mrkrs) (Abd Poll Brev) 29.28 1.21 Left Ulnar (Mrkrs) Run #2 (Abd Dig Min) 30.77 1.29 Right Ulnar (Mrkrs) (Abd Dig Min) 29.47 1.29 EMG Side Muscle Nerve Root Ins Act Fibs Amp Dur Recrt Comment Right 1stDorInt Ulnar C8-T1 Nml Nml Nml Nml Nml Right Ext Indicis Radial (Post Int) C7-8 Nml Nml Nml Nml Nml Right Ext Digitorum Radial (Post Int) C7-8 Nml Nml Nml Nml Nml Right BrachioRad Radial C5-6 Nml Nml Nml Nml Nml Right PronatorTeres Median C6-7 Nml Nml Nml Nml Nml Right Abd Poll Brev Median C8-T1 Nml Nml Nml Nml Nml Left 1stDorInt Ulnar C8-T1 Nml Nml Nml Nml Nml Left Ext Indicis Radial (Post Int) C7-8 Nml Nml Nml Nml Nml Left Ext Digitorum Radial (Post Int) C7-8 Nml Nml Nml Nml Nml Left BrachioRad Radial C5-6 Nml Nml Nml Nml Nml Left PronatorTeres Median C6-7 Nml Nml Nml Nml Nml Left Abd Poll Brev Median C8-T1 Nml Nml Nml Nml Nml MTDD
== END 2022-04-17 08:27 | disposition home or self-care (01) ==
LOC: ANHNEURO 08:29
PROVIDERS: PCP Family Medicine; Visit Provider Family Medicine
DX: R53.1 Weakness (principal); R94.131 Abnormal electromyogram [EMG]
CPT/HCPCS: 95886; 95911

== ENCOUNTER 2022-04-26 11:24 | Outpatient (CLI) | payer MEDICARE, SELFPAY ==
[2022-04-26 11:51] LABS: Uric Acid 6.9 mg/dL (3.5-8.5)
== END 2022-04-26 11:25 | disposition home or self-care (01) ==
PROVIDERS: PCP Family Medicine; Visit Provider Nurse Practitioner Family
DX: M10.9 Gout, unspecified (principal)
CPT/HCPCS: 36415; 84550

== ENCOUNTER 2022-08-06 12:46 | Emergency (ER) | payer MEDICARE, SELFPAY ==
--- NOTE | ~2022-08-06 | XR_ITS ---
EXAMINATION: XR chest 2V 08/06/2022 13:23 INDICATION: Weakness. PROCEDURE: 2 view chest COMPARISON: Comparison to multiple prior studies sequentially, with oldest reviewed study dated 08/01. FINDINGS: The lungs are clear. The cardiomediastinal silhouette is within normal limits. There are no pleural effusions. There is no pneumothorax suspected. There is thoracic spondylosis. There is e xtensive atherosclerosis of the aorta. IMPRESSION: 1: NO ACUTE CARDIOPULMONARY DISEASE. Reviewed, dictated and finalized at location A. 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
[2022-08-06 12:50] VITALS: BP 105/67; PULSE 84; RESP 20; TEMP 36.8; O2SAT 100
--- NOTE | 2022-08-06 13:05 | ECG_ITS ---
Measurements Intervals [place] Rate: 70 P: 52 HI: 219 QRS: -16 QRSD: 102 T: 49 QT: 362 QTc: 392 Interpretive Statements SINUS RHYTHM WITH FIRST DEGREE AV BLOCK MODERATE VOLTAGE CRITERIA FOR LVH, CONSIDER NORMAL VARIANT [MEETS CRITERIA IN ONE OF: R(aVL), S(V1), R(V5), R(V5/V6)+S(V1)] COMPARED TO ECG 03/14/2022 18:50:59 SLIGHTLY LONGER HI INTERVAL Electronically Signed On 08-08-2022 7:18:40 CORPORATE LEGAL ASSISTANT by Ishan Rodriguez M.D.
[2022-08-06 14:28] LABS: Basophils Absolute Auto 0.1 K/mm3 (0.0-0.1); Basophils Percent Auto 0.8 % (0.2-1.2); Eosinophils Absolute Auto 0.2 K/mm3 (0-0.3); Eosinophils Percent Auto 2.1 % (0-4.4); Hematocrit 36.6 % (42.0-52.0); Hemoglobin 12.2 g/dL (14.0-18.0); Immature Granulocyte Absolute 0.04 K/mm3 (0.00-0.031); Immature Granulocyte Percent A 0.4 % (0-0.5); Lymphocytes Absolute Auto 1.83 K/mm3 (0.9-3.2); Mean Corpuscular HGB Conc 33.3 g/dl (32-36); Mean Corpuscular Hemoglobin 31.3 pg (26-34); Mean Corpuscular Volume 93.8 fl (80-100); Mean Platelet Volume 10.9 fl (7.4-10.4); Monocytes Absolute Auto 0.6 K/mm3 (0.1-0.6); Monocytes Percent Auto 5.5 % (2.6-8.5); Neutrophils Absolute Auto 7.5 K/mm3 (1.3-6.7); Neutrophils Percent Auto 73.2 % (45.5-73.1); Platelet Count Result 184 k/mm3 (150-375); Red Cell Distribution Width 14.4 % (11.5-14.5); White Blood Count 10.2 K/mm3 (4.5-10.0)
[2022-08-06 14:37] LABS: Alanine Aminotransferase 29 U/L (6-50); Albumin Level 4.2 g/dL (3.5-5.1); Alkaline Phosphatase 117 U/L (38-126); Anion Gap 7 mmol/L (8-16); Aspartate Amino Transferase 25 U/L (17-59); Bilirubin,Total 0.9 mg/dL (0.2-1.3); Blood Urea Nitrogen 57 mg/dL (9-20); Calcium 9.2 mg/dL (8.4-10.2); Carbon Dioxide 23 mmol/L (22-30); Chloride 105 mmol/L (98-107); Estimated CRCL calculation 27 ml/min; Estimated Glomerular Filt Rate 33; Glucose 173 mg/dL (65-110); Sodium 135 mmol/L (137-145)
[2022-08-06 14:41] LABS: Appearance Urine Clear (Clear); Bilirubin Urine Negative (Negative); Blood Urine Negative (Negative); Color Urine Yellow (Yellow); Glucose Urine UA 3+ mg/dL (Negative); Ketones Urine Negative (Negative); Leukocyte Esterase Ur Negative LEU/UL (Negative); Nitrate Urine Negative (Negative); Protein Urine Negative (Negative); Specific Grav Ur 1.015 (1.001-1.035); Urobilinogen Urine 0.2 mg/dL (<2.0)
[2022-08-06 15:03] LABS: Mucus Urine Rare /lpf; RBC Urine 0-2 /hpf (0-2); Squamous Epithelial Cell Urine Rare /hpf (Few); WBC Urine 0-3 /hpf
[2022-08-06 15:08] LABS: Add Urine Microscopic? YES
--- NOTE | 2022-08-06 17:05 | ED.WEAKNESS ---
HPI - Weakness General Chief complaint: Weakness Stated complaint: can barely stand up Time Seen by Provider: 08/06/22 16:55 History of Present Illness HPI Narrative: Patient is a 71-year-old male with a history of hypertension, coronary artery disease, carotid stenosis, here for evaluation of weakness and lightheadedness. Patient states that whenever he goes from sitting to standing, he feels very weak and cannot stand for longer than several seconds. Today, he states this weakness has led to several falls, denies head injury, bony injury or loss of consciousness. Patient saw his primary care doctor last week and had several of his blood pressure medicines adjusted and Farxiga was added to his regimen. No chest pain, shortness of breath, cough, fevers, leg swelling, slurred speech. Related Data Home Medications Medication Instructions Recorded Confirmed atorvastatin 80 mg tablet 80 mg PO DAILY 12/05/21 07/22/22 carvedilol 12.5 mg tablet 6.25 mg PO BID 12/05/21 07/22/22 nitroglycerin 0.3 mg sublingual 0.3 mg sublingual PRN PRN Chest 12/05/21 07/22/22 tablet Pain ticagrelor 60 mg tablet (Brilinta) 60 mg PO BID 12/05/21 07/22/22 aspirin 81 mg tablet,delayed 81 mg PO DAILY 12/06/21 07/22/22 release (Adult Aspirin Regimen) lisinopril 10 mg tablet 40 mg PO DAILY 12/06/21 07/22/22 pantoprazole 40 mg tablet,delayed 40 mg PO DAILY 03/14/22 07/22/22 release amlodipine 5 mg tablet 5 mg PO .QD 07/22/22 07/22/22 chlorthalidone 25 mg tablet 25 mg PO .Qd 07/22/22 07/22/22 Allergies Allergy/AdvReac Type Severity Reaction Status Date / Time No Known Allergies Allergy Verified 07/22/22 09:27 Review of Systems Review of Systems: Gen: Reports weakness. Denies fevers or chills Eyes: Denies eye pain or visual change ENT: Denies congestion Respiratory: Denies shortness of breath or cough CV: Denies chest pain or palpitations GI: Denies abdominal pain nausea, emesis or diarrhea denies burning, urgency, frequency or hematuria Musculoskeletal: Denies back pain or muscle pain Neuro: Denies numbness, tingling, weakness or focal weakness Skin: Denies rash Except as documented, all other systems reviewed and negative FOR[facility]LY [facility] Past Medical History Medical History 1st MTP arthritis Adenomatous colon polyp Anemia Arthritis BMI 25.0-25.9,adult BMI 25.0-25.9,adult BMI 26.0-26.9,adult BMI 26.0-26.9,adult BMI between 19-24,adult CAD (coronary artery disease) Carotid stenosis, asymptomatic h/o intracranial cerebral stenosis, evaluated at [place] 05/2019, thought not to be symptomatic cont med tx. Carpal tunnel syndrome on both sides Chills Collagenous colitis Colonoscopy planned Depression Dysphagia Fever GERD (gastroesophageal reflux disease) Glaucoma Gout (~08/2019) Groin discomfort Heart disease High cholesterol History of blood clots History of prostate cancer HLD (hyperlipidemia) HTN (hypertension) Left shoulder pain Light headedness Microscopic colitis Overweight Personal history of DVT (deep vein thrombosis) Prostate cancer Right shoulder pain Shortness of breath Spasmodic bladder Stenosis of infrarenal abdominal aorta due to arteriosclerosis Says his aorta is mildly enlarged Tendinitis of both rotator cuffs Trochanteric bursitis, left hip Trochanteric bursitis, right hip Type 2 diabetes mellitus without complications Wears glasses Surgical History Surgical History H/O cardiac catheterization H/O cystoscopy H/O heart artery stent H/O rectal polypectomy History of angioplasty History of cataract surgery History of colonoscopy 2019 History of prostatectomy Had prostate cancer, status post prostatectomy and later radiation therapy. Has an implanted device to help with urinary incontinence. History of rotator cuff surgery S/P arthroscopic surgery of left knee Family History Family Histo
[2022-08-06] MEDS: SODIUM CHLORIDE 0.9% IV 1,000 ML 999 ML IV CONT ×2 (17:28→19:26)
[2022-08-06 18:30] LABS: Influenza A QL RT-PCR Negative (Negative); Influenza B QL RT-PCR Negative (Negative); SARS-CoV-2 RNA PCR Negative
[2022-08-06 18:45] VITALS: BP 150/49; BP 165/51; PULSE 73; PULSE 80
[2022-08-06 18:47] VITALS: BP 120/62; PULSE 79
[2022-08-06 21:29] VITALS: BP 157/56; PULSE 88; RESP 18; O2SAT 98
== END 2022-08-06 21:31 | disposition home or self-care (01) ==
PROVIDERS: Emergency Medicine; Emergency Provider Physician Assistant; PCP Family Medicine
DX: R42 Dizziness and giddiness (principal); Z20.822 Contact with and (suspected) exposure to COVID-19; I25.10 Atherosclerotic heart disease of native coronary artery without angina pectoris; I10 Essential (primary) hypertension; I35.0 Nonrheumatic aortic (valve) stenosis; E11.9 Type 2 diabetes mellitus without complications; E78.00 Pure hypercholesterolemia, unspecified; D64.9 Anemia, unspecified; K21.9 Gastro-esophageal reflux disease without esophagitis; H40.9 Unspecified glaucoma; F32.A Depression, unspecified; M19.079 Primary osteoarthritis, unspecified ankle and foot; Z95.5 Presence of coronary angioplasty implant and graft; Z90.79 Acquired absence of other genital organ(s); Z98.49 Cataract extraction status, unspecified eye; Z85.46 Personal history of malignant neoplasm of prostate; Z86.718 Personal history of other venous thrombosis and embolism; Z86.010 Personal history of colon polyps; Z87.19 Personal history of other diseases of the digestive system; Z92.3 Personal history of irradiation; Z87.891 Personal history of nicotine dependence; Z79.82 Long term (current) use of aspirin; Z79.84 Long term (current) use of oral hypoglycemic drugs; I44.0 Atrioventricular block, first degree
CPT/HCPCS: 36415; 71046; 80053; 81001; 85025; 87636; 93005; 96360; 96361; 99283; 99284; J7030

== ENCOUNTER 2022-08-13 10:16 | Inpatient (IN) | payer MEDICARE, SELFPAY ==
[2022-08-13] VITALS (15 sets, daily range): BP systolic 140–174; BP diastolic 55–65; PULSE 83–110; RESP 14–21; TEMP 36.4–36.6; O2SAT 96–100; BMI 25.8
--- NOTE | ~2022-08-13 | CT_ITS ---
EXAMINATION: CTA brain carotid DATE: 08/13/2022 13:42 INDICATION: Confusion. Weakness. TECHNIQUE: Computed tomographic angiography (CTA) of the head was performed with 100 mL Omnipaque-350 intravenous contrast. CTA of the neck was performed with intravenous contrast. Automated exposure co ntrol and iterative reconstruction technique were employed. The dose-length product was 1036.73 mGy-c m. Maximum intensity projection and volume rendered 3D-reconstructions were created by the [employer] [facility] on a separate workstation. COMPARISON: Head CT 08/13/2022, CT 04/06/19 FINDINGS: HEAD CTA: There are scattered areas of low attenuation in the cerebral white matter. There is no intr acranial hemorrhage, acute infarction, or abnormal intracranial mass lesion. The ventricles are grace l in size. There are likely changes of ocular lens replacement surgeries. There is mild mucosal thick ening in the paranasal sinuses. The mastoid air cells are normal. There is no significant stenosis of the vertebral arteries or basilar artery. There is mild stenosis of intracranial right internal [place] artery and severe stenosis of intracranial left internal carotid artery. There is mild stenosis o f the middle cerebral arteries. There are multiple small collateral arteries in the area of the right A1 anterior cerebral artery segment. There is moderate stenosis of right A2 anterior cerebral artery . The posterior communicating arteries are normal. There is no aneurysm. NECK CTA: There are nodules in the thyroid measuring up to 8 mm, likely not clinically significant. T here is total occlusion of proximal right vertebral artery with reconstitution. There is moderate naheed nosis of origin of left vertebral artery. There is plaque in the proximal internal carotid arteries. There is 75% stenosis of the proximal right internal carotid artery relative to normal distal artery lumen diameter (NASCET criteria). There is 18% stenosis of the proximal left internal carotid artery relative to normal distal artery lumen diameter. There is severe cervical spondylosis. IMPRESSION: 1. Moderate nonspecific cerebral white matter disease, which likely represents chronic small vessel i schemic disease. 2. Severe stenosis of intracranial left internal carotid artery. 3. Small collateral arteries at right A1 anterior cerebral artery and moderate stenosis of right A2 a nterior cerebral artery. 4. 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 5. 75% stenosis of the proximal right internal carotid artery relative to normal distal artery lumen diameter (NASCET criteria). 6. 18% stenosis of the proximal left internal carotid artery relative to normal distal artery lumen d iameter. Reviewed, dictated and finalized at location A. RATIONS TAILOR IMPRESSION: 1. Moderate nonspecific cerebral white matter disease, which likely represents chronic small vessel ischemic disease. 2. Severe stenosis of intracranial left internal carotid artery. 3. Small collateral arteries at right A1 anterior cerebral artery and moderate stenosis of right A2 anterior cerebral artery. 4. Chronic total occlusion of proximal right vertebral artery with reconstituti on. 5. 75% stenosis of the proximal right internal carotid artery relative to grace l distal artery lumen diameter (NASCET criteria). 6. 18% stenosis of the proximal left internal carotid artery relative to normal distal artery lumen diameter.
--- NOTE | ~2022-08-13 | US_ITS ---
EXAMINATION: US renal BI DATE: 08/13/2022 22:57 INDICATION: Acute renal failure. TECHNIQUE: Multiple ultrasound grayscale images of the kidneys were obtained. COMPARISON: CT abdomen and pelvis 05/07/2020 FINDINGS: The right kidney measures 10.3 x 4.8 x 5.1 cm. The left kidney measures 10.6 x 4.8 x 5.4 cm. The kidn eys demonstrate normal parenchymal echogenicity. There is no hydronephrosis. The bladder is normal. A penile prosthesis reservoir is noted. IMPRESSION: 1. Normal kidneys. No hydronephrosis. Reviewed, dictated and finalized at location A. TYPE MACHINIST
--- NOTE | ~2022-08-13 | CT_ITS ---
EXAMINATION: CT brain wo con INDICATION: Dementia and altered mental status COMPARISON: 04/06/2019 TECHNIQUE: Standard unenhanced head CT. The dose-length product (DLP) was 605.33 mGy-cm. The mA was a djusted according to patient size. Iterative reconstruction technique was employed. FINDINGS: There is no acute intraparenchymal hemorrhage. No evidence of mass lesion. No evidence of a cute infarction. There is mild periventricular and subcortical hypodensity probably related to small vessel ischemic disease. There is mild prominence of the sulci and ventricles related to cerebral atr ophy. Intracranial calcified cerebral atherosclerosis is noted. There are no extra-axial collections. There is no mass effect or midline shift. Changes in the globes are likely from ocular lens surgery. The visualized sinuses and mastoid air cells are well aerated. IMPRESSION: 1. No acute intracranial abnormality. 2. Age related findings. Reviewed, dictated and finalized at location A. CIPLE INDUSTRIAL HYGIENIST
--- NOTE | ~2022-08-13 | XR_ITS ---
EXAMINATION: XR chest 2V DATE: 08/13/2022 11:20 INDICATION: Weakness and shortness of breath TECHNIQUE: PA and lateral views of the chest are obtained. COMPARISON: 08/06/2022 FINDINGS: The lungs are free of acute opacities. No pleural effusion or pneumothorax. The heart size is normal. There is enlargement of the central pulmonary arteries, consistent with pulmonary hyperten arcelia. There is moderate thoracic spondylosis. Calcified atherosclerosis is noted. IMPRESSION: 1. No acute cardiopulmonary abnormality. Reviewed, dictated and finalized at location A. OGICAL INSPECTOR
--- NOTE | 2022-08-13 10:33 | ECG_ITS ---
Measurements Intervals [place] Rate: 85 P: 52 GA: 198 QRS: -25 QRSD: 105 T: 78 QT: 346 QTc: 413 Interpretive Statements SINUS RHYTHM MINIMAL VOLTAGE CRITERIA FOR LVH, CONSIDER NORMAL VARIANT [MEETS CRITERIA IN ONE OF: R(aVL), S(V1), R(V5), R(V5/V6)+S(V1)] COMPARED TO ECG 08/06/2022 17:21:11 NO SIGNIFICANT CHANGES Electronically Signed On 08-13-2022 13:23:40 SPACE SYSTEMS OPERATIONS MANAGER by Mariangel Palmer M.D.
[2022-08-13 11:06] LABS: Basophils Absolute Auto 0.1 K/mm3 (0.0-0.1); Basophils Percent Auto 0.6 % (0.2-1.2); Eosinophils Absolute Auto 0.3 K/mm3 (0-0.3); Eosinophils Percent Auto 3.2 % (0-4.4); Hematocrit 36.7 % (42.0-52.0); Hemoglobin 12.5 g/dL (14.0-18.0); Immature Granulocyte Absolute 0.04 K/mm3 (0.00-0.031); Immature Granulocyte Percent A 0.4 % (0-0.5); Lymphocytes Absolute Auto 1.95 K/mm3 (0.9-3.2); Lymphocytes Percent Auto 19.5 % (18.3-44.2); Mean Corpuscular HGB Conc 34.1 g/dl (32-36); Mean Corpuscular Hemoglobin 31.8 pg (26-34); Mean Corpuscular Volume 93.4 fl (80-100); Mean Platelet Volume 10.6 fl (7.4-10.4); Monocytes Absolute Auto 0.7 K/mm3 (0.1-0.6); Monocytes Percent Auto 6.6 % (2.6-8.5); Neutrophils Percent Auto 69.7 % (45.5-73.1); Platelet Count Result 182 k/mm3 (150-375); Red Blood Count 3.93 M/mm3 (4.6-6.20); Red Cell Distribution Width 14.1 % (11.5-14.5)
[2022-08-13 11:16] LABS: Alanine Aminotransferase 32 U/L (6-50); Albumin Level 4.4 g/dL (3.5-5.1); Alkaline Phosphatase 117 U/L (38-126); Anion Gap 9 mmol/L (8-16); Aspartate Amino Transferase 29 U/L (17-59); Bilirubin,Total 0.7 mg/dL (0.2-1.3); Blood Urea Nitrogen 52 mg/dL (9-20); Calcium 9.1 mg/dL (8.4-10.2); Carbon Dioxide 23 mmol/L (22-30); Chloride 99 mmol/L (98-107); Estimated CRCL calculation 29 ml/min; Estimated Glomerular Filt Rate 35; Glucose 141 mg/dL (65-110); Potassium 5.2 mmol/L (3.4-5.0); Sodium 131 mmol/L (137-145)
--- NOTE | 2022-08-13 11:21 | PC.NURSE ---
Pt in XRAY at this time, to come to ED room 14 when imaging is complete.
[2022-08-13] MEDS: LORazepam INJ (*CRX) 2 MG/ML VIAL (11:46)
--- NOTE | 2022-08-13 11:48 | ED.GENADULT ---
HPI - General Adult General Chief complaint: Altered Mental Status Stated complaint: weakness Time Seen by Provider: 08/13/22 11:39 History of Present Illness HPI narrative: 71-year-old male with history of anxiety presenting to the emergency department for evaluation of increased anxiety and altered mental status. Patient states he does have a history of taking benzodiazepines but states he has not been taking his Xanax for the last few days. Patient son states that the patient has been increasingly altered over the last few days. Son states that the patient's current speech pattern is typical for him but that the level of confusion is very atypical for his father. Patient does have a past medical history of high cholesterol, hypertension, pulmonary hypertension, and anxiety. Patient denies any prior history of CVA. Related Data Home Medications Medication Instructions Recorded Confirmed atorvastatin 80 mg tablet 80 mg PO QHS 12/05/21 08/13/22 carvedilol 12.5 mg tablet 12.5 mg PO BID 12/05/21 08/13/22 nitroglycerin 0.3 mg sublingual 0.3 mg sublingual PRN PRN Chest 12/05/21 08/13/22 tablet Pain ticagrelor 60 mg tablet (Brilinta) 60 mg PO BID 12/05/21 08/13/22 aspirin 81 mg tablet,delayed 81 mg PO DAILY 12/06/21 08/13/22 release (Adult Aspirin Regimen) lisinopril 10 mg tablet 40 mg PO DAILY 12/06/21 08/13/22 pantoprazole 40 mg tablet,delayed 40 mg PO DAILY 03/14/22 08/13/22 release amlodipine 5 mg tablet 2.5 mg PO DAILY 07/22/22 08/13/22 chlorthalidone 25 mg tablet 25 mg PO DAILY 07/22/22 08/13/22 magnesium oxide 400 mg (241.3 mg 400 mg PO BID 08/13/22 08/13/22 magnesium) tablet nortriptyline 25 mg capsule 25 mg PO QHS 08/13/22 08/13/22 Allergies Allergy/AdvReac Type Severity Reaction Status Date / Time No Known Allergies Allergy Verified 08/13/22 11:31 Review of Systems Review of Systems: CONSTITUTIONAL: Denies fever, chills, or sweats. EYES: Denies visual changes, redness, or discharge. ENT: Denies rhinorrhea, congestion, sore throat, or otalgia. CARDIOVASCULAR: Denies chest pain, palpitations, or edema. RESPIRATORY: Denies cough or dyspnea. GASTROINTESTINAL: Denies abdominal pain, nausea, vomiting, or diarrhea. GENITOURINARY: Denies dysuria or hematuria. SKIN: Denies rash or itching. MUSCULOSKELETAL: Denies back pain, joint pain, or myalgia. NEUROLOGIC: Altered mental status, confusion, see [facility] Past Medical History Medical History 1st MTP arthritis Adenomatous colon polyp Anemia Arthritis BMI 25.0-25.9,adult BMI 25.0-25.9,adult BMI 26.0-26.9,adult BMI 26.0-26.9,adult BMI between 19-24,adult CAD (coronary artery disease) Carotid stenosis, asymptomatic h/o intracranial cerebral stenosis, evaluated at [place] 05/2019, thought not to be symptomatic cont med tx. Carpal tunnel syndrome on both sides Chills Collagenous colitis Colonoscopy planned Depression Dysphagia Fever GERD (gastroesophageal reflux disease) Glaucoma Gout (~08/2019) Groin discomfort Heart disease High cholesterol History of blood clots History of prostate cancer HLD (hyperlipidemia) HTN (hypertension) Left shoulder pain Light headedness Microscopic colitis Overweight Personal history of DVT (deep vein thrombosis) Prostate cancer Right shoulder pain Shortness of breath Spasmodic bladder Stenosis of infrarenal abdominal aorta due to arteriosclerosis Says his aorta is mildly enlarged Tendinitis of both rotator cuffs Trochanteric bursitis, left hip Trochanteric bursitis, right hip Type 2 diabetes mellitus without complications Wears glasses Surgical History Surgical History H/O cardiac catheterization H/O cystoscopy H/O heart artery stent H/O rectal polypectomy History of angioplasty History of cataract surgery History of colonoscopy 2019 History of prostatectomy Had prostate cancer, status post prostatectomy and
[2022-08-13] MEDS: SODIUM CHLORIDE 0.9% IV 1,000 ML 999 ML IV CONT (12:02)
[2022-08-13 12:09] LABS: Add Urine Microscopic? YES; Appearance Urine Clear (Clear); Bilirubin Urine Negative (Negative); Blood Urine 2+ (Negative); Color Urine Light Yellow (Yellow); Glucose Urine UA 3+ mg/dL (Negative); Ketones Urine Negative (Negative); Leukocyte Esterase Ur Negative LEU/UL (Negative); Nitrate Urine Negative (Negative); Protein Urine Negative (Negative); Specific Grav Ur 1.015 (1.001-1.035); Urobilinogen Urine 0.2 mg/dL (<2.0)
[2022-08-13 12:14] LABS: RBC Urine 21-50 /hpf (0-2); Squamous Epithelial Cell Urine Rare /hpf (Few); WBC Urine 0-3 /hpf
[2022-08-13 12:35] LABS: Influenza A QL RT-PCR Negative (Negative); Influenza B QL RT-PCR Negative (Negative); RSV RNA, RT-PCR Negative (Negative); SARS-CoV-2 RNA PCR Negative
--- NOTE | 2022-08-13 13:40 | PC.NURSE ---
Pt to CT scan via stretcher at this time.
--- NOTE | 2022-08-13 14:27 | PC.NURSE ---
EDP Dr Cooper at bedside at this time to discuss POC w/ pt family at bedside.
--- NOTE | 2022-08-13 16:05 | ADMGEN ---
This patient, Derek Freeman, was admitted to Medical Room 247-. Patient/family oriented to hospital policies and general routines including ID bracelet, bed and alarms, visiting hours, pain management, procedures, bathroom and other care routines, personal items, smoking policy, room service/diet, and visiting hours. Information on how to activate the Rapid Response Team has been discussed. Patient/Family are encouraged to report perceived risks to care and to ask questions if they do not understand what they are told or what they should do.
--- NOTE | 2022-08-13 19:37 | PM.IMHP ---
H&P: HPI History of Present Illness Date/Time: 08/13/22 19:37 Chief Complaint: Weakness with altered mental status Narrative: This is a 71-year-old male patient who has a history of depression and anxiety. The patient lives home alone. The patient typically takes benzodiazepines but stated he has not been taken any Xanax for last 2 days. Patient's son stated that he has been increasingly more altered over the last few days. The patient was able answer questions for me without difficulty. The patient tells me he just feels weak. H&H is 12.5 and 36.7. Sodium is 131. Potassium 5.2. Creatinine 1.9 compared with 2.0 on 08/06. Influenza A/B RSV and COVID are all negative. Head neck CTA were read as the following1. Moderate nonspecific cerebral white matter disease, which likely represents chronic small vessel ischemic disease.? 2. Severe stenosis of intracranial left internal carotid artery. 3. Small collateral arteries at right A1 anterior cerebral artery and moderate stenosis of right A2 anterior cerebral artery. 4. 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 5. 75% stenosis of the proximal right internal carotid artery relative to normal distal artery lumen diameter (NASCET criteria). 6. 18% stenosis of the proximal left internal carotid artery relative to normal distal artery lumen diameter. Head CT was read as no acute intracranial abnormality age-related findings. Chest x-ray was read as no acute cardiopulmonary abnormality. The patient was admitted to observation status on the date of service of 08/13/2022. Review of Systems Review of Systems: See HPI All systems reviewed & are unremarkable except as noted in HPI and below Constitutional: Constitutional: Reports as per HPI and Reports no additional constitutional complaints Eyes: Eyes: Reports as per HPI and Reports no additional eye complaints ENT: Reports system reviewed and no additional complaints, except as documented and Reports Normal hearing present Cardiovascular: Cardiovascular: Reports no additional cardiovascular complaints Respiratory: Respiratory: Reports no additional respiratory complaints and Reports no additional respiratory complaints Gastrointestinal: Gastrointestinal: Reports as per HPI and Reports no additional gastrointestinal complaints Musculoskeletal: Musculoskeletal: Reports no additional musculoskeletal complaints Integumentary/Breasts: Skin/Breast: Reports system reviewed and no additional complaints, except as docu and Reports as per HPI Neurologic: Reports system reviewed and no additional complaints, except as documented, Reports as per HPI and Reports Normal hearing present Psychiatric: Psychiatric: Reports no additional psychiatric complaints and Reports as per HPI Endocrine: Endocrine: Reports no additional endocrine complaints Hematologic/Lymphatic: Hematologic/Lymphatic: Reports no additional hematologic/lymphatic complaints Allergic/Immunologic: Allergic/Immunologic: Reports no additional allergic/immunologic complaints [facility] Past Medical History Medical History (Updated 08/13/22 @ 20:01 by Alix William NP) 1st MTP arthritis Adenomatous colon polyp Anemia Arthritis BMI 25.0-25.9,adult BMI 25.0-25.9,adult BMI 26.0-26.9,adult BMI 26.0-26.9,adult BMI between 19-24,adult CAD (coronary artery disease) Carotid stenosis, asymptomatic h/o intracranial cerebral stenosis, evaluated at [place] 05/2019, thought not to be symptomatic cont med tx. Carpal tunnel syndrome on both sides Chills Collagenous colitis Colonoscopy planned Depression Dysphagia Fever GERD (gastroesophageal reflux disease) Glaucoma Gout (~08/2019) Groin discomfort Heart disease High cholesterol History of blood clots History of prostate cancer HLD (hyperlipidemia) HTN (hypertension) Left shoulder pain Light headedness Microscopic colitis Overweight Personal history of DVT (deep vein thrombosis) Prostate cancer Right s
[2022-08-13 20:43] LABS: Hemoglobin A1C 7.9 % (<5.7)
[2022-08-13] MEDS: NORTRIPTYLINE HCL 25 MG CAPSULE PO (22:43)
[2022-08-13] MEDS: ATORVASTATIN 40 MG TABLET 80 MG PO (22:43)
[2022-08-13 22:52] LABS: Glucose Point of Care 144 mg/dl (65-105)
[2022-08-14] VITALS (12 sets, daily range): BP systolic 148–189; BP diastolic 42–64; PULSE 68–96; RESP 14–17; TEMP 36.6–36.9; O2SAT 96–100
[2022-08-14 05:46] LABS: Basophils Percent Auto 0.6 % (0.2-1.2); Eosinophils Absolute Auto 0.3 K/mm3 (0-0.3); Eosinophils Percent Auto 4.1 % (0-4.4); Hematocrit 36.5 % (42.0-52.0); Hemoglobin 11.9 g/dL (14.0-18.0); Immature Granulocyte Absolute 0.03 K/mm3 (0.00-0.031); Immature Granulocyte Percent A 0.4 % (0-0.5); Lymphocytes Absolute Auto 1.64 K/mm3 (0.9-3.2); Lymphocytes Percent Auto 24.2 % (18.3-44.2); Mean Corpuscular HGB Conc 32.6 g/dl (32-36); Mean Corpuscular Volume 95.1 fl (80-100); Mean Platelet Volume 10.5 fl (7.4-10.4); Monocytes Absolute Auto 0.5 K/mm3 (0.1-0.6); Monocytes Percent Auto 7.2 % (2.6-8.5); Neutrophils Absolute Auto 4.3 K/mm3 (1.3-6.7); Neutrophils Percent Auto 63.5 % (45.5-73.1); Platelet Count Result 150 k/mm3 (150-375); Red Blood Count 3.84 M/mm3 (4.6-6.20); Red Cell Distribution Width 14.1 % (11.5-14.5); White Blood Count 6.8 K/mm3 (4.5-10.0)
[2022-08-14 05:59] LABS: Lactic Acid Reflex 0.7 mmol/L (0.7-2.0)
[2022-08-14 06:03] LABS: Alanine Aminotransferase 31 U/L (6-50); Albumin Level 4.1 g/dL (3.5-5.1); Alkaline Phosphatase 125 U/L (38-126); Anion Gap 6 mmol/L (8-16); Aspartate Amino Transferase 26 U/L (17-59); Bilirubin,Total 0.8 mg/dL (0.2-1.3); Blood Urea Nitrogen 36 mg/dL (9-20); Calcium 9.1 mg/dL (8.4-10.2); Carbon Dioxide 25 mmol/L (22-30); Chloride 106 mmol/L (98-107); Estimated CRCL calculation 32 ml/min; Estimated Glomerular Filt Rate 40; Glucose 116 mg/dL (65-110); Lipase 227 U/L (23-300); Magnesium 2.7 mg/dL (1.6-2.3); Potassium 5.3 mmol/L (3.4-5.0); Sodium 137 mmol/L (137-145)
[2022-08-14 06:35] LABS: Thyroid Stimulating Hormone Reflex 0.591 uIU/mL (0.465-4.68)
[2022-08-14] MEDS: ASPIRIN 81 MG ENTERIC TABLET PO (08:37)
[2022-08-14] MEDS: TICAGRELOR 60 MG TABLET PO ×2 (08:37→21:41)
[2022-08-14] MEDS: PANTOPRAZOLE 40 MG TABLET PO (08:37)
[2022-08-14] MEDS: amLODIPine BESYLATE 2.5 MG TABLET PO ×2 (08:37→12:35)
[2022-08-14] MEDS: MAGNESIUM OXIDE 400 MG TABLET PO ×2 (08:37→17:01)
[2022-08-14] MEDS: allopurinoL 300 MG TABLET PO (08:37)
[2022-08-14 08:50] LABS: Glucose Point of Care 119 mg/dl (65-105)
--- NOTE | 2022-08-14 10:54 | PM.IMPN ---
Progress Note: A&P Assessment and Plan (1) AMS (altered mental status): Qualifiers: Altered mental status type: disorientation Qualified Code(s): R41.0 - Disorientation, unspecified Code(s): R41.82 - Altered mental status, unspecified Status: Acute Assessment and Plan: - Well oriented this morning, no neurological deficits on exam. - MRI pending. Severe claustrophobia, iv lorazepam prn one dose prior to test. - Appreciate neuro consult order already placed. - No acute findings to suggest underlying infectious etiology. (2) Weakness: Code(s): R53.1 - Weakness Status: Acute Assessment and Plan: Patient states generalized weakness over the last few weeks, he recently started chlorthalidone, mildly hyponatremic on presentation at 131, currently 137. - PT/OT eval is pending. (3) JOEY (acute kidney injury): Code(s): N17.9 - Acute kidney failure, unspecified Status: Acute Assessment and Plan: - Improving with light rehydration overnight, BUN 36, creatinine 1.70. - Recently started chlorthalidone. - Renal u/s no acute findings. - Check PTHI in the am. Likely a chronic component underlying. 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 -nortriptyline to continue (5) CAD (coronary artery disease): Qualifiers: Associated angina: without angina Coronary Disease-Associated Artery/Lesion type: [place] artery [place] vs. transplanted heart: [place] heart Qualified Code(s): I25.10 - Atherosclerotic heart disease of [place] coronary artery without angina pectoris Code(s): I25.10 - Atherosclerotic heart disease of [place] coronary artery without angina pectoris Status: Acute Assessment and Plan: -patient to continue on atorvastatin Coreg and Brilinta -there is no report of chest pain (6) Carotid stenosis, asymptomatic: Code(s): I65.29 - Occlusion and stenosis of unspecified carotid artery Status: Acute Assessment and Plan: -chronic condition on atorvastatin and anti-platelet therapy (7) GERD (gastroesophageal reflux disease): Code(s): K21.9 - Gastro-esophageal reflux disease without esophagitis Status: Acute Assessment and Plan: PPI. (8) Hypertension: Qualifiers: Hypertension type: primary hypertension Qualified Code(s): I10 - Essential (primary) hypertension Code(s): I10 - Essential (primary) hypertension Status: Acute Assessment and Plan: -patient recently started chlorthalidone which may be partially responsible for the acute kidney injury - consider continuing to hold on dc. -uptitrate the Norvasc to 5mg daily. (9) Mixed hyperlipidemia: Code(s): E78.2 - Mixed hyperlipidemia Status: Chronic Assessment and Plan: - cont. statin. (10) Type 2 diabetes mellitus without complications: Qualifiers: Diabetes mellitus fpc insulin use: without exterminator helper termite use Qualified Code(s): E11.9 - Type 2 diabetes mellitus without complications Code(s): E11.9 - Type 2 diabetes mellitus without complications Status: Chronic Assessment and Plan: - ssi protocol to continue. - A1c 7.9 - Was recently started on farxiga 3 weeks prior per his report - less likely to cause joey but possibly contributing. Plan Await pt/ot recommendations. Confusion is resolved and he is well oriented. If strength improved to discharge to home likely dc in the next 24-48 hours. Time Spent With Patient Time with patient: 15 - 25 minutes Subjective Date/time seen: 08/14/22 10:54 Interval history: Patient states feeling a bit better than prior, does note that he has been more weak for three weeks. State
--- NOTE | 2022-08-14 11:53 | WPDNEURCNPN ---
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 on p.r.n. basis we will obtain the routine EEG and then consider starting him on Zyprexa 2.5 mg daily if there is no evidence of seizures Consult date: 08/14/22 HPI: Derek Freeman is a 71 year old male admitted to the hospital through the emergency room for the complaints of increasing anxiety with change in the mental status and history of taking benzodiazepines, patient has history of taking multiple medications as outlined which include Brilinta 60 mg twice a day carvedilol 12.5 mg per aspirin 81 mg daily lisinopril 40 mg daily amlodipine 2.5 mg daily and chlorthalidone 25 mg daily along with nortriptyline 25 mg at night he does have ongoing history of multiple medical problems as outlined he is a former smoker and former alcohol intake of almost 14 drinks per week but no substance use initial examination in the emergency room revealed him to be very anxious received 1 mg of Ativan for the ability of benzodiazepine withdrawal as he has stopped taking the Xanax with subsequent improvement in the mental status negative CT scan of the head for the bleed routine lab norm with negative chest x-ray negative CT of the head and 75% stenosis of proximal right internal carotid artery on the head neck CTA but also moderate stenosis of right 8 2 anterior cerebral artery and chronic total occlusion of proximal right vertebral artery with reconstitution . He is receiving aspirin 81 mg daily with atorvastatin 80 mg at night carvedilol 12.5 mg q.12 not typically in 25 mg at night and Brilinta 60 mg q.12 hours in addition to Norvasc 5 mg daily PMFSH Past Medical History Medical History 1st MTP arthritis Adenomatous colon polyp Anemia Arthritis BMI 25.0-25.9,adult BMI 25.0-25.9,adult BMI 26.0-26.9,adult BMI 26.0-26.9,adult BMI between 19-24,adult CAD (coronary artery disease) Carotid stenosis, asymptomatic h/o intracranial cerebral stenosis, evaluated at [place] 05/2019, thought not to be symptomatic cont med tx. Carpal tunnel syndrome on both sides [place] Collagenous colitis Colonoscopy planned Depression Dysphagia Fever GERD (gastroesophageal reflux disease) Glaucoma Gout (~08/2019) Groin discomfort Heart disease High cholesterol History of blood clots History of prostate cancer HLD (hyperlipidemia) HTN (hypertension) Left shoulder pain Light headedness Microscopic colitis Overweight Personal history of DVT (deep vein thrombosis) Prostate cancer Right shoulder pain Shortness of breath Spasmodic bladder Stenosis of infrarenal abdominal aorta due to arteriosclerosis Says his aorta is mildly enlarged Tendinitis of both rotator cuffs Trochanteric bursitis, left hip Trochanteric bursitis, right hip Type 2 diabetes mellitus without complications Wears glasses Surgical History Surgical History H/O cardiac catheterization H/O cystoscopy H/O heart artery stent H/O rectal polypectomy History of angioplasty History of cataract surgery History of colonoscopy 2019 History of prostatectomy Had prostate cancer, status post prostatectomy and later radiation therapy. Has an implanted device to help with urinary incontinence. History of rotator cuff surgery S/P arthroscopic surgery of left knee Family History Family History (Reviewed 08/14/22 @ 11:58 by Wilmar
[2022-08-14] MEDS: carvediloL 12.5 MG TABLET PO ×2 (12:11→21:40)
[2022-08-14 12:17] LABS: Glucose Point of Care 191 mg/dl (65-105)
[2022-08-14 17:28] LABS: Glucose Point of Care 102 mg/dl (65-105)
[2022-08-14] MEDS: ATORVASTATIN 40 MG TABLET 80 MG PO (21:41)
[2022-08-14] MEDS: NORTRIPTYLINE HCL 25 MG CAPSULE PO (21:41)
[2022-08-14 22:43] LABS: Glucose Point of Care 141 mg/dl (65-105)
[2022-08-15] VITALS (13 sets, daily range): BP systolic 85–174; BP diastolic 47–62; PULSE 67–96; RESP 16–21; TEMP 36.2–36.6; O2SAT 98–100
[2022-08-15 05:59] LABS: Hematocrit 36.6 % (42.0-52.0); Hemoglobin 12.2 g/dL (14.0-18.0); Mean Corpuscular HGB Conc 33.3 g/dl (32-36); Mean Corpuscular Volume 93.1 fl (80-100); Mean Platelet Volume 10.2 fl (7.4-10.4); Platelet Count Result 167 k/mm3 (150-375); Red Blood Count 3.93 M/mm3 (4.6-6.20); Red Cell Distribution Width 13.7 % (11.5-14.5); White Blood Count 7.5 K/mm3 (4.5-10.0)
[2022-08-15 06:35] LABS: Anion Gap 4 mmol/L (8-16); Blood Urea Nitrogen 34 mg/dL (9-20); Calcium 9.1 mg/dL (8.4-10.2); Carbon Dioxide 27 mmol/L (22-30); Chloride 102 mmol/L (98-107); Estimated CRCL calculation 36 ml/min; Estimated Glomerular Filt Rate 46; Glucose 132 mg/dL (65-110); Magnesium 2.4 mg/dL (1.6-2.3); Potassium 4.6 mmol/L (3.4-5.0); Sodium 133 mmol/L (137-145)
[2022-08-15] MEDS: MAGNESIUM OXIDE 400 MG TABLET PO ×2 (08:29→17:30)
[2022-08-15] MEDS: amLODIPine BESYLATE 5 MG TABLET PO (08:29)
[2022-08-15] MEDS: PANTOPRAZOLE 40 MG TABLET PO (08:29)
[2022-08-15] MEDS: allopurinoL 300 MG TABLET PO (08:29)
[2022-08-15] MEDS: ASPIRIN 81 MG ENTERIC TABLET PO (08:29)
[2022-08-15] MEDS: TICAGRELOR 60 MG TABLET PO ×2 (08:29→20:41)
[2022-08-15] MEDS: carvediloL 12.5 MG TABLET PO ×2 (08:30→20:41)
[2022-08-15 08:46] LABS: Glucose Point of Care 108 mg/dl (65-105)
[2022-08-15] MEDS: SODIUM CHLORIDE 0.9% IV 1,000 ML 60 ML IV CONT (11:33)
--- NOTE | 2022-08-15 11:37 | PM.IMPN ---
Progress Note: A&P Assessment and Plan (1) AMS (altered mental status): Qualifiers: Altered mental status type: disorientation Qualified Code(s): R41.0 - Disorientation, unspecified Code(s): R41.82 - Altered mental status, unspecified Status: Acute Assessment and Plan: - Well oriented this morning, no neurological deficits on exam. - MRI pending. Severe claustrophobia, iv lorazepam prn one dose prior to test. - Appreciate neuro consult order already placed. - No acute findings to suggest underlying infectious etiology. (2) Weakness: Code(s): R53.1 - Weakness Status: Acute Assessment and Plan: Patient states generalized weakness over the last few weeks, he recently started chlorthalidone, mildly hyponatremic on presentation at 131, currently 137. - PT/OT eval is pending. (3) JOEY (acute kidney injury): Code(s): N17.9 - Acute kidney failure, unspecified Status: Acute Assessment and Plan: - Improving with light rehydration overnight, BUN 36, creatinine 1.70. - Recently started chlorthalidone. - Renal u/s no acute findings. - Check PTHI in the am. Likely a chronic component underlying. 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 -nortriptyline to continue (5) CAD (coronary artery disease): Qualifiers: Coronary Disease-Associated Artery/Lesion type: [place] artery [place] vs. transplanted heart: [place] heart Associated angina: without angina Qualified Code(s): I25.10 - Atherosclerotic heart disease of [place] coronary artery without angina pectoris Code(s): I25.10 - Atherosclerotic heart disease of [place] coronary artery without angina pectoris Status: Acute Assessment and Plan: -patient to continue on atorvastatin Coreg and Brilinta -there is no report of chest pain (6) Carotid stenosis, asymptomatic: Code(s): I65.29 - Occlusion and stenosis of unspecified carotid artery Status: Acute Assessment and Plan: -chronic condition on atorvastatin and anti-platelet therapy (7) GERD (gastroesophageal reflux disease): Code(s): K21.9 - Gastro-esophageal reflux disease without esophagitis Status: Acute Assessment and Plan: PPI. (8) Hypertension: Qualifiers: Hypertension type: primary hypertension Qualified Code(s): I10 - Essential (primary) hypertension Code(s): I10 - Essential (primary) hypertension Status: Acute Assessment and Plan: -patient recently started chlorthalidone which may be partially responsible for the acute kidney injury - consider continuing to hold on dc. -uptitrate the Norvasc to 5mg daily. (9) Mixed hyperlipidemia: Code(s): E78.2 - Mixed hyperlipidemia Status: Chronic Assessment and Plan: - cont. statin. (10) Type 2 diabetes mellitus without complications: Qualifiers: Diabetes mellitus senior living insulin use: without terminal worker use Qualified Code(s): E11.9 - Type 2 diabetes mellitus without complications Code(s): E11.9 - Type 2 diabetes mellitus without complications Status: Chronic Assessment and Plan: - ssi protocol to continue. - A1c 7.9 - Was recently started on farxiga 3 weeks prior per his report - less likely to cause joey but possibly contributing. Plan Await pt/ot recommendations. Confusion is resolved and he is well oriented. If strength improved to discharge to home likely dc in the next 24-48 hours. Subjective Date/time seen: 08/15/22 11:37 Patient was seen during the morning rounds today. No new overnight complaints. No shortness of breath or chest pain. No abdominal pain, nausea, no vomiting. Mood stable. Review of
[2022-08-15 12:24] LABS: Glucose Point of Care 187 mg/dl (65-105)
[2022-08-15 17:59] LABS: Glucose Point of Care 120 mg/dl (65-105)
[2022-08-15] MEDS: NORTRIPTYLINE HCL 25 MG CAPSULE PO (20:41)
[2022-08-15] MEDS: ATORVASTATIN 40 MG TABLET 80 MG PO (20:41)
[2022-08-15 21:11] LABS: Glucose Point of Care 163 mg/dl (65-105)
[2022-08-16] VITALS (8 sets, daily range): BP systolic 134–178; BP diastolic 51–65; PULSE 61–78; RESP 18–21; TEMP 36.3–36.4; O2SAT 100
[2022-08-16 05:28] LABS: Alanine Aminotransferase 28 U/L (6-50); Albumin Level 3.8 g/dL (3.5-5.1); Alkaline Phosphatase 115 U/L (38-126); Anion Gap 4 mmol/L (8-16); Aspartate Amino Transferase 25 U/L (17-59); Bilirubin,Total 0.5 mg/dL (0.2-1.3); Blood Urea Nitrogen 31 mg/dL (9-20); Calcium 9.1 mg/dL (8.4-10.2); Carbon Dioxide 28 mmol/L (22-30); Chloride 105 mmol/L (98-107); Estimated CRCL calculation 42 ml/min; Estimated Glomerular Filt Rate 54; Glucose 127 mg/dL (65-110); Potassium 4.4 mmol/L (3.4-5.0); Sodium 137 mmol/L (137-145)
[2022-08-16] MEDS: SODIUM CHLORIDE 0.9% IV 1,000 ML 60 ML IV CONT (05:46)
--- NOTE | 2022-08-16 09:04 | PM.IMPN ---
Progress Note: A&P Assessment and Plan (1) AMS (altered mental status): Qualifiers: Altered mental status type: disorientation Qualified Code(s): R41.0 - Disorientation, unspecified Code(s): R41.82 - Altered mental status, unspecified Status: Acute Assessment and Plan: - Well oriented this morning, no neurological deficits on exam. - MRI pending. Severe claustrophobia, iv lorazepam prn one dose prior to test. - Appreciate neuro consult order already placed. - No acute findings to suggest underlying infectious etiology. (2) Weakness: Code(s): R53.1 - Weakness Status: Acute Assessment and Plan: Patient states generalized weakness over the last few weeks, he recently started chlorthalidone, mildly hyponatremic on presentation at 131, currently 137. - PT/OT eval is pending. (3) JOEY (acute kidney injury): Code(s): N17.9 - Acute kidney failure, unspecified Status: Acute Assessment and Plan: - Improving with light rehydration overnight, BUN 36, creatinine 1.70. - Recently started chlorthalidone. - Renal u/s no acute findings. - Check PTHI in the am. Likely a chronic component underlying. 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 -nortriptyline to continue (5) CAD (coronary artery disease): Qualifiers: Coronary Disease-Associated Artery/Lesion type: [place] artery [place] vs. transplanted heart: [place] heart Associated angina: without angina Qualified Code(s): I25.10 - Atherosclerotic heart disease of [place] coronary artery without angina pectoris Code(s): I25.10 - Atherosclerotic heart disease of [place] coronary artery without angina pectoris Status: Acute Assessment and Plan: -patient to continue on atorvastatin Coreg and Brilinta -there is no report of chest pain (6) Carotid stenosis, asymptomatic: Code(s): I65.29 - Occlusion and stenosis of unspecified carotid artery Status: Acute Assessment and Plan: -chronic condition on atorvastatin and anti-platelet therapy (7) GERD (gastroesophageal reflux disease): Code(s): K21.9 - Gastro-esophageal reflux disease without esophagitis Status: Acute Assessment and Plan: PPI. (8) Hypertension: Qualifiers: Hypertension type: primary hypertension Qualified Code(s): I10 - Essential (primary) hypertension Code(s): I10 - Essential (primary) hypertension Status: Acute Assessment and Plan: -patient recently started chlorthalidone which may be partially responsible for the acute kidney injury - consider continuing to hold on dc. -uptitrate the Norvasc to 5mg daily. (9) Mixed hyperlipidemia: Code(s): E78.2 - Mixed hyperlipidemia Status: Chronic Assessment and Plan: - cont. statin. (10) Type 2 diabetes mellitus without complications: Qualifiers: Diabetes mellitus prison insulin use: without termite inspector use Qualified Code(s): E11.9 - Type 2 diabetes mellitus without complications Code(s): E11.9 - Type 2 diabetes mellitus without complications Status: Chronic Assessment and Plan: - ssi protocol to continue. - A1c 7.9 - Was recently started on farxiga 3 weeks prior per his report - less likely to cause joey but possibly contributing. Plan Await pt/ot recommendations. Confusion is resolved and he is well oriented. If strength improved to discharge to home likely dc in the next 24-48 hours. Subjective Date/time seen: 08/16/22 09:04 Patient was seen today. Patient is feeling much better. Mental status is better. Shortness of breath or chest pain. No abdominal pain, nausea, no vomiting. Mood stable. Review of Sy
[2022-08-16] MEDS: ALPRAZolam (*CRX) 0.5 MG TABLET PO (09:25)
[2022-08-16] MEDS: ASPIRIN 81 MG ENTERIC TABLET PO (09:26)
[2022-08-16] MEDS: TICAGRELOR 60 MG TABLET PO (09:26)
[2022-08-16] MEDS: carvediloL 12.5 MG TABLET PO (09:26)
[2022-08-16] MEDS: amLODIPine BESYLATE 5 MG TABLET PO (09:26)
[2022-08-16] MEDS: MAGNESIUM OXIDE 400 MG TABLET PO (09:26)
[2022-08-16] MEDS: allopurinoL 300 MG TABLET PO (09:26)
[2022-08-16] MEDS: PANTOPRAZOLE 40 MG TABLET PO (09:26)
[2022-08-16 12:21] LABS: Glucose Point of Care 163 mg/dl (65-105)
--- NOTE | 2022-08-16 14:07 | WPDNEUROPN ---
Subjective Date/time seen: 08/16/22 14:07 Interval history: 71 years old with ongoing history of anxiety and depression for which he is taking multiple medications as outlined before. EEG was obtained which revealed no evidence of diffuse or focal slow activity or any paroxysmal discharge that is is completely normal at present patient is doing well otherwise if we have to start him on will start Zyprexa 2.5 mg daily otherwise medical treatment is continued as such Objective Data Vital Signs Vital Signs: Vital Signs - 24 hr 08/15/22 14:11 08/15/22 14:35 08/15/22 16:00 Temperature 36.3 C L Pulse Rate 67 84 Respiratory Rate 16 Blood Pressure 125/62 Pulse Oximetry 100 Oxygen Delivery Room Air 08/15/22 20:00 08/15/22 20:00 08/16/22 00:00 Temperature Pulse Rate 83 71 Respiratory Rate Blood Pressure Pulse Oximetry Oxygen Delivery Room Air 08/15/22 22:00 08/16/22 04:00 08/16/22 05:15 Temperature 36.2 C L 36.4 C L Pulse Rate 74 69 61 Respiratory Rate 21 H 21 H Blood Pressure 174/60 H 143/51 H Pulse Oximetry 100 100 Oxygen Delivery 08/16/22 09:26 08/16/22 09:28 08/16/22 08:20 Temperature Pulse Rate 78 Respiratory Rate Blood Pressure 178/65 H Pulse Oximetry Oxygen Delivery Room Air 08/16/22 08:00 08/16/22 12:00 Temperature Pulse Rate 64 65 Respiratory Rate Blood Pressure Pulse Oximetry Oxygen Delivery Intake/Output Intake/Output: Intake & Output 08/13/22 08/14/22 08/15/22 08/16/22 23:59 23:59 23:59 23:59 Intake Total 1100 1520 2830 1880 Output Total 75 150 Balance 1025 1520 2680 1880 Meds/Results Medications: Active Medications Generic Name Dose Route Start Last Admin Trade Name Freq PRN Reason Stop Dose Admin Allopurinol 300 mg 08/14/22 09:00 08/16/22 09:26 Allopurinol 300 Mg Tablet PO 300 mg DAILY CLARISSA Administration Alprazolam 0.5 mg 08/13/22 20:04 08/16/22 09:25 Alprazolam (*Crx) 0.5 Mg Tablet PO 0.5 mg TID PRN Administration Anxiety Amlodipine Besylate 5 mg 08/15/22 09:00 08/16/22 09:26 Amlodipine Besylate 5 Mg Tablet PO 5 mg DAILY CLARISSA Administration Aspirin 81 mg 08/14/22 09:00 08/16/22 09:26 Aspirin 81 Mg Enteric Tablet PO 81 mg DAILY CLARISSA Administration Atorvastatin Calcium 80 mg 08/13/22 21:00 08/15/22 20:41 Atorvastatin 40 Mg Tablet PO 80 mg QHS CLARISSA Administration Carvedilol 12.5 mg 08/14/22 12:00 08/16/22 09:26 Carvedilol 12.5 Mg Tablet PO 12.5 mg Q12HR CLARISSA Administration Dextrose 12.5 gm 08/13/22 19:44 Dextrose 50% 25 Gm/50 Ml Syringe IV PUSH PRN PRN Hypoglycemia Protocol Glucagon 1 mg 08/13/22 19:44 Glucagon For Inj 1 Mg Vial IM PRN PRN Hypoglycemia Protocol Glucose 15 gm 08/13/22 19:44 Glucose Oral Gel 15 Gm Of Glucse In 37.5 Gm Tube PO PRN PRN Hypoglycemia Protocol Dextrose 1,000 mls @ 100 mls/hr 08/13/22 19:44 Dextrose 5% 1,000 Ml IVPB PRN PRN Hypoglycemia Protocol Insulin Aspart 2 - 5 units 08/14/22 08:00 08/16/22 08:25 Insulin Aspart (*Bkc) 100 Units/Ml SUB-Q Not Given TIDWM [facility] Protocol Magnesium Oxide 400 mg 08/14/22 09:00 08/16/22 09:26 Magnesium Oxide 400 Mg Tablet PO 400 mg BID CLARISSA Administration Nortriptyline HCl 25 mg 08/13/22 21:00 08/15/22 20:41 Nortriptyline Hcl 25 Mg Capsule PO 25 mg QHS CLARISSA Administration Pantoprazole Sodium 40 mg 08/14/22 09:00 08/16/22 09:26 Pantoprazole 40 Mg Tablet PO 40 mg DAILY CLARISSA Administration Ticagrelor 60 mg 08/14/22 09:00 08/16/22 09:26 Ticagrelor 60 Mg Tablet PO 60 mg Q12HR CLARISSA Administration Radiology Results: ITS Impressions Chest X-Ray 08/13/22 11:21 IMPRESSION: 1. No acute cardiopulmonary abnormality. Head CT 08/13/22 12:37 IMPRESSION: 1. No acute intracranial abnormality. 2. Age related findings.
--- NOTE | 2022-08-16 14:32 | WPDNEUROLOGY ---
Neurology EEG Report General Information Date of Study: 08/15/22 TEST EEG DIAGNOSIS altered mental status CONDITION OF RECORDING awake drowsy and sleep EEG NUMBER [id number] CLINICAL HISTORY patient reports he had an episode yesterday where he did not know what he was doing he was confused though he feels fine now EEG DESCRIPTION basic resting occipital frequency consists of low-voltage 8 to 10 hertz per 2nd alpha admixed with minimal amount of low-voltage 15 to 18 hertz per 2nd beta. During drowsiness low-voltage beta activity seen diffusely admixed with waxing and waning posterior alpha rhythm. Bilateral symmetrical sleep activity seen during sleep. Hyperventilation not done. Photic stimulation not done. Non paroxysmal . Nonfocal. Nonlateralizing. IMPRESSION No significant abnormalities noted
--- NOTE | 2022-08-16 14:35 | PM.DS ---
DS: Admitting Diagnosis Discharge Date 08/16/2022 Admitting Diagnosis Mental status change DS: Discharge Diagnosis Discharge Diagnosis (1) AMS (altered mental status): Qualifiers: Altered mental status type: disorientation Qualified Code(s): R41.0 - Disorientation, unspecified Code(s): R41.82 - Altered mental status, unspecified Status: Acute Assessment and Plan: - Well oriented this morning, no neurological deficits on exam. - MRI pending. Severe claustrophobia, iv lorazepam prn one dose prior to test. - Appreciate neuro consult order already placed. - No acute findings to suggest underlying infectious etiology. (2) Weakness: Code(s): R53.1 - Weakness Status: Acute Assessment and Plan: Patient states generalized weakness over the last few weeks, he recently started chlorthalidone, mildly hyponatremic on presentation at 131, currently 137. - PT/OT eval is pending. (3) JOEY (acute kidney injury): Code(s): N17.9 - Acute kidney failure, unspecified Status: Acute Assessment and Plan: - Improving with light rehydration overnight, BUN 36, creatinine 1.70. - Recently started chlorthalidone. - Renal u/s no acute findings. - Check PTHI in the am. Likely a chronic component underlying. 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 -nortriptyline to continue (5) CAD (coronary artery disease): Qualifiers: Coronary Disease-Associated Artery/Lesion type: [place] artery [place] vs. transplanted heart: [place] heart Associated angina: without angina Qualified Code(s): I25.10 - Atherosclerotic heart disease of [place] coronary artery without angina pectoris Code(s): I25.10 - Atherosclerotic heart disease of [place] coronary artery without angina pectoris Status: Acute Assessment and Plan: -patient to continue on atorvastatin Coreg and Brilinta -there is no report of chest pain (6) Carotid stenosis, asymptomatic: Code(s): I65.29 - Occlusion and stenosis of unspecified carotid artery Status: Acute Assessment and Plan: -chronic condition on atorvastatin and anti-platelet therapy (7) GERD (gastroesophageal reflux disease): Code(s): K21.9 - Gastro-esophageal reflux disease without esophagitis Status: Acute Assessment and Plan: PPI. (8) Hypertension: Qualifiers: Hypertension type: primary hypertension Qualified Code(s): I10 - Essential (primary) hypertension Code(s): I10 - Essential (primary) hypertension Status: Acute Assessment and Plan: -patient recently started chlorthalidone which may be partially responsible for the acute kidney injury - consider continuing to hold on dc. -uptitrate the Norvasc to 5mg daily. (9) Mixed hyperlipidemia: Code(s): E78.2 - Mixed hyperlipidemia Status: Chronic Assessment and Plan: - cont. statin. (10) Type 2 diabetes mellitus without complications: Qualifiers: Diabetes mellitus custodial insulin use: without custodial use Qualified Code(s): E11.9 - Type 2 diabetes mellitus without complications Code(s): E11.9 - Type 2 diabetes mellitus without complications Status: Chronic Assessment and Plan: - ssi protocol to continue. - A1c 7.9 - Was recently started on farxiga 3 weeks prior per his report - less likely to cause joey but possibly contributing. Plan Await pt/ot recommendations. Confusion is resolved and he is well oriented. If strength improved to discharge to home likely dc in the next 24-48 hours. DS: Summary Hospital Course Reason for hospitalization: Mental status seemed Hospital Course: [age] years old male was admitted co
== END 2022-08-16 16:04 | disposition home or self-care (01) | DRG 683 ==
LOC: ANHED 11:56 → ANH2MED 16:09
PROVIDERS: Nurse Practitioner; Nurse Practitioner Family; Admitting Provider Chiropractor; Emergency Provider Emergency Medicine; PCP Family Medicine; Visit Provider Internal Medicine
DX: N17.9 Acute kidney failure, unspecified (principal); E87.1 Hypo-osmolality and hyponatremia; F13.931 Sedative, hypnotic or anxiolytic use, unspecified with withdrawal delirium; R41.82 Altered mental status, unspecified; F41.9 Anxiety disorder, unspecified; F32.A Depression, unspecified; I65.29 Occlusion and stenosis of unspecified carotid artery; Z20.822 Contact with and (suspected) exposure to COVID-19; H53.40 Unspecified visual field defects; I25.10 Atherosclerotic heart disease of native coronary artery without angina pectoris; K21.9 Gastro-esophageal reflux disease without esophagitis; I10 Essential (primary) hypertension; H40.9 Unspecified glaucoma; E78.2 Mixed hyperlipidemia; E11.9 Type 2 diabetes mellitus without complications; D64.9 Anemia, unspecified; M19.90 Unspecified osteoarthritis, unspecified site; Z85.46 Personal history of malignant neoplasm of prostate; Z86.718 Personal history of other venous thrombosis and embolism; Z95.5 Presence of coronary angioplasty implant and graft; Z87.891 Personal history of nicotine dependence
CPT/HCPCS: 36415; 51701; 70450; 70496; 70498; 71046; 76775; 80048; 80053; 81001; 82948; 83036; 83605; 83690; 83735; 83970; 84443; 85025; 85027; 87086; 87147; 87186; 87637; 93005; 95816; 96361; 96374; 97161; 97165; 99285; A9270; G0378; J2060; J7030; Q9967

== ENCOUNTER 2022-11-05 11:25 | Outpatient (CLI) | payer MEDICARE, SELFPAY ==
--- NOTE | ~2022-11-05 | XR_ITS ---
EXAMINATION: XR chest 2V Exam Date/Time: 11/05/2022 11:40 PROCESS SAFETY SPECIALIST HISTORY: R05.9 - Cough, unspecified Comparison: 08/13/2022. RESULT: Lines, tubes, and devices: None. Lungs and pleura: Clear. Cardiomediastinal silhouette: Stable. Other: No acute osseous or upper abdominal finding. IMPRESSION: No acute cardiopulmonary process. Reviewed, dictated and finalized at location K. ESS SAFETY SPECIALIST
[2022-11-05 12:13] LABS: Hematocrit 30.8 % (42.0-52.0); Mean Corpuscular HGB Conc 32.5 g/dl (32-36); Mean Corpuscular Hemoglobin 31.9 pg (26-34); Mean Corpuscular Volume 98.4 fl (80-100); Platelet Count Result 212 k/mm3 (150-375); Red Blood Count 3.13 M/mm3 (4.6-6.20); Red Cell Distribution Width 14.1 % (11.5-14.5); White Blood Count 9.2 K/mm3 (4.5-10.0)
[2022-11-05 12:27] LABS: Alanine Aminotransferase 35 U/L (6-50); Albumin Level 3.9 g/dL (3.5-5.1); Alkaline Phosphatase 130 U/L (38-126); Anion Gap 5 mmol/L (8-16); Aspartate Amino Transferase 28 U/L (17-59); Bilirubin,Total 0.8 mg/dL (0.2-1.3); Blood Urea Nitrogen 36 mg/dL (9-20); Calcium 9.3 mg/dL (8.4-10.2); Carbon Dioxide 28 mmol/L (22-30); Chloride 101 mmol/L (98-107); Estimated Glomerular Filt Rate 50; Glucose 178 mg/dL (65-110); Potassium 4.3 mmol/L (3.4-5.0); Sodium 134 mmol/L (137-145)
== END 2022-11-05 11:26 | disposition home or self-care (01) ==
PROVIDERS: PCP Family Medicine; Visit Provider Nurse Practitioner Family
DX: R05.9 Cough, unspecified (principal); E11.9 Type 2 diabetes mellitus without complications; E78.2 Mixed hyperlipidemia
CPT/HCPCS: 36415; 71046; 80053; 85027

== ENCOUNTER 2022-11-05 20:53 | Emergency (ER) | payer MEDICARE, SELFPAY ==
--- NOTE | ~2022-11-05 | CT_ITS ---
EXAMINATION: CT cervical spine wo con DATE: 11/05/2022 21:18 INDICATION: neck pain, post-op TECHNIQUE: Computed tomography (CT) of the cervical spine was performed without intravenous contrast. Automated exposure control and iterative reconstruction technique were employed. The dose-length pro duct was 445.73 mGy-cm. COMPARISON: CTA brain carotid 08/13/2022. FINDINGS: Vertebral Body Alignment: Intact. . Craniocervical and atlantoaxial alignment: Moderate degenerative change. Alignment intact. Osseous structures/fracture: No evidence of a lytic or blastic process in the visualized spine. No e vidence of acute fracture. . Cervical soft tissues: The paraspinal soft tissues planes are maintained. 1.9 cm right posterior thyr oid nodule with associated coarse calcification. Fat stranding, subcutaneous gas, and minimal subcuta neous fluid in the right neck. No definite focal fluid collection noting that evaluation is limited w ithout contrast. Biapical pleural scarring in the lungs. Degenerative changes: Multilevel degenerative disc disease and uncovertebral joint hypertrophy. Multi level severe bilateral neural foraminal narrowing. Severe central canal narrowing at C3-4, where ther e is a posterior disc protrusion, and at C4-5, where there is a partially bridging osteophyte and dis c protrusion. IMPRESSION: 1. No acute fracture or traumatic malalignment in the cervical spine. 2. Post surgical changes in the right neck, evaluation for postoperative complication is limited with out contrast. 3. 1.9 cm right thyroid nodule, recommend nonemergent, outpatient thyroid ultrasound for further paris acterization. 4. Degenerative changes in the cervical spine with multilevel severe central canal and neural foramin al narrowing. Reviewed, dictated and finalized at location K. IGERATION ENGINEERING TEACHER IMPRESSION: 1. No acute fracture or traumatic malalignment in the cervical spine. 2. Post surgical changes in the right neck, evaluation for postoperative compli cation is limited without contrast. 3. 1.9 cm right thyroid nodule, recommend nonemergent, outpatient thyroid ultra sound for further characterization. 4. Degenerative changes in the cervical spine with multilevel severe central ca nal and neural foraminal narrowing.
--- NOTE | ~2022-11-05 | CT_ITS ---
EXAMINATION: CT brain wo con DATE: 11/05/2022 21:18 INDICATION: Neck pain, post-op . TECHNIQUE: Computed tomography (CT) of the head was performed without intravenous contrast. The mA wa s adjusted according to patient size. Iterative reconstruction technique was employed. The dose-lengt h product was 605.33 mGy-cm. COMPARISON: 08/13/2022. FINDINGS: No acute intracranial hemorrhage or extra-axial fluid collection. No hydrocephalus, mass, or herniation. No acute ischemic infarct. Unremarkable dural venous sinus attenuation. No acute osseous abnormality. The aerated spaces are clear. Mild atrophy and chronic white matter change. Atherosclerotic intracranial calcification. Bilateral l ens replacements. IMPRESSION: No acute intracranial process. Reviewed, dictated and finalized at location K. TY DIRECTOR OF NURSING
[2022-11-05 20:56] VITALS: BP 147/54; PULSE 87; RESP 16; TEMP 36.6; O2SAT 100
[2022-11-05 21:19] LABS: Basophils Percent Auto 0.3 % (0.2-1.2); Eosinophils Absolute Auto 0.2 K/mm3 (0-0.3); Eosinophils Percent Auto 2.2 % (0-4.4); Hematocrit 31.6 % (42.0-52.0); Hemoglobin 10.4 g/dL (14.0-18.0); Immature Granulocyte Absolute 0.04 K/mm3 (0.00-0.031); Immature Granulocyte Percent A 0.4 % (0-0.5); Lymphocytes Absolute Auto 1.94 K/mm3 (0.9-3.2); Lymphocytes Percent Auto 19.6 % (18.3-44.2); Mean Corpuscular HGB Conc 32.9 g/dl (32-36); Mean Corpuscular Hemoglobin 32.5 pg (26-34); Mean Corpuscular Volume 98.8 fl (80-100); Mean Platelet Volume 10.9 fl (7.4-10.4); Monocytes Absolute Auto 0.9 K/mm3 (0.1-0.6); Monocytes Percent Auto 8.6 % (2.6-8.5); Neutrophils Absolute Auto 6.8 K/mm3 (1.3-6.7); Neutrophils Percent Auto 68.9 % (45.5-73.1); Platelet Count Result 221 k/mm3 (150-375); Red Cell Distribution Width 13.9 % (11.5-14.5); White Blood Count 9.9 K/mm3 (4.5-10.0)
[2022-11-05 21:31] LABS: Partial Thromboplastin Time 31.7 SECONDS (22.3-36.8); Prothrombin Time 12.6 Seconds (11.1-14.7)
[2022-11-05 21:32] LABS: Alanine Aminotransferase 34 U/L (6-50); Alkaline Phosphatase 141 U/L (38-126); Anion Gap 6 mmol/L (8-16); Aspartate Amino Transferase 26 U/L (17-59); Bilirubin,Total 0.6 mg/dL (0.2-1.3); Blood Urea Nitrogen 36 mg/dL (9-20); Calcium 9.2 mg/dL (8.4-10.2); Carbon Dioxide 26 mmol/L (22-30); Chloride 105 mmol/L (98-107); Estimated CRCL calculation 41 ml/min; Estimated Glomerular Filt Rate 54; Glucose 178 mg/dL (65-110); Potassium 3.9 mmol/L (3.4-5.0); Sodium 137 mmol/L (137-145)
--- NOTE | 2022-11-05 23:52 | ED.GENADULT ---
HPI - General Adult General Chief complaint: Neck Pain/Injury Stated complaint: post-op endarterectomy back pain Time Seen by Provider: 11/05/22 23:10 History of Present Illness HPI narrative: This is a 72-year-old male presenting to ED on pod 6 from a right-sided carotid endarterectomy that was performed at [facility]. Patient says that starting yesterday he started to have pain behind his right ear that extends down the back of his neck. It is a sharp pain that is worse when he shrugs shoulders, 2/10 at rest but 10/10 when moving. Never experienced pain like this before there are no exacerbating factors. He denies any swelling to the site, no fever and no chills nausea vomiting or diarrhea. There are no overlying skin changes. Patient has been taking Tylenol which has helped with his pain. Patient saw his primary care physician earlier today but did not bring up the pain. The patient notes that he has been sleeping in a recliner due to the surgery. Related Data Home Medications Medication Instructions Recorded Confirmed atorvastatin 80 mg tablet 80 mg PO QHS 12/05/21 08/26/22 carvedilol 12.5 mg tablet 12.5 mg PO BID 12/05/21 08/26/22 nitroglycerin 0.3 mg sublingual 0.3 mg sublingual PRN PRN Chest 12/05/21 08/26/22 tablet Pain ticagrelor 60 mg tablet (Brilinta) 60 mg PO BID 12/05/21 08/26/22 aspirin 81 mg tablet,delayed 81 mg PO DAILY 12/06/21 08/26/22 release (Adult Aspirin Regimen) lisinopril 10 mg tablet 40 mg PO DAILY 12/06/21 08/26/22 pantoprazole 40 mg tablet,delayed 40 mg PO DAILY 03/14/22 08/26/22 release amlodipine 5 mg tablet 2.5 mg PO DAILY 07/22/22 08/26/22 chlorthalidone 25 mg tablet 25 mg PO DAILY 07/22/22 08/13/22 nortriptyline 25 mg capsule 25 mg PO QHS 08/13/22 08/26/22 Allergies Allergy/AdvReac Type Severity Reaction Status Date / Time dapagliflozin [From [facility]] AdvReac Severe Hallucinati Verified 11/05/22 10:28 ng [facility] Past Medical History Medical History 1st MTP arthritis Adenomatous colon polyp Anemia Arthritis BMI 25.0-25.9,adult BMI 25.0-25.9,adult BMI 26.0-26.9,adult BMI 26.0-26.9,adult BMI between 19-24,adult CAD (coronary artery disease) Carotid stenosis, asymptomatic h/o intracranial cerebral stenosis, evaluated at [facility] 05/2019, thought not to be symptomatic cont med tx. Carpal tunnel syndrome on both sides Chills Collagenous colitis Colonoscopy planned Depression Dysphagia Fever GERD (gastroesophageal reflux disease) Glaucoma Gout (~08/2019) Groin discomfort Heart disease High cholesterol History of blood clots History of prostate cancer HLD (hyperlipidemia) HTN (hypertension) Left shoulder pain Light headedness Microscopic colitis Overweight Personal history of DVT (deep vein thrombosis) Prostate cancer Right shoulder pain Shortness of breath Spasmodic bladder Stenosis of infrarenal abdominal aorta due to arteriosclerosis Says his aorta is mildly enlarged Tendinitis of both rotator cuffs Trochanteric bursitis, left hip Trochanteric bursitis, right hip Type 2 diabetes mellitus without complications Wears glasses Surgical History Surgical History H/O cardiac catheterization H/O carotid endarterectomy H/O cystoscopy H/O heart artery stent H/O rectal polypectomy History of angioplasty History of cataract surgery History of colonoscopy 2019 History of prostatectomy Had prostate cancer, status post prostatectomy and later radiation therapy. Has an implanted device to help with urinary incontinence. History of rotator cuff surgery S/P arthroscopic surgery of left knee Family History Family History Father , of lung cancer age 83 Hypertension Lung cancer Sibling Hypertension Mother Family history of malignant neoplasm of breast in first degree relative Margie
[2022-11-06 00:14] VITALS: BP 145/78; PULSE 79; RESP 18; O2SAT 99
== END 2022-11-06 00:15 | disposition home or self-care (01) ==
PROVIDERS: Emergency Medicine; Emergency Provider Emergency Medicine; PCP Family Medicine
DX: M54.2 Cervicalgia (principal); Z98.890 Other specified postprocedural states; I25.10 Atherosclerotic heart disease of native coronary artery without angina pectoris; I65.29 Occlusion and stenosis of unspecified carotid artery; I11.9 Hypertensive heart disease without heart failure; E11.39 Type 2 diabetes mellitus with other diabetic ophthalmic complication; H42 Glaucoma in diseases classified elsewhere; I70.0 Atherosclerosis of aorta; E78.00 Pure hypercholesterolemia, unspecified; K21.9 Gastro-esophageal reflux disease without esophagitis; M19.079 Primary osteoarthritis, unspecified ankle and foot; Z95.5 Presence of coronary angioplasty implant and graft; Z85.46 Personal history of malignant neoplasm of prostate; Z86.718 Personal history of other venous thrombosis and embolism; Z86.2 Personal history of diseases of the blood and blood-forming organs and certain disorders involving the immune mechanism; Z86.010 Personal history of colon polyps; Z92.3 Personal history of irradiation; Z87.891 Personal history of nicotine dependence; Z90.79 Acquired absence of other genital organ(s); Z79.85 Long-term (current) use of injectable non-insulin antidiabetic drugs; Z79.82 Long term (current) use of aspirin; Z79.02 Long term (current) use of antithrombotics/antiplatelets; E04.1 Nontoxic single thyroid nodule; M50.30 Other cervical disc degeneration, unspecified cervical region; M50.221 Other cervical disc displacement at C4-C5 level
CPT/HCPCS: 36415; 70450; 71046; 72125; 80053; 85025; 85027; 85610; 85730; 99284

== ENCOUNTER 2022-11-24 12:06 | Outpatient (CLI) | payer MEDICARE, SELFPAY ==
[2022-11-24 15:07] LABS: Thyroid Stimulating Hormone 0.276 uIU/mL (0.465-4.680)
[2022-11-28 10:56] LABS: T3 Reverse 21 ng/dL (8-25)
== END 2022-11-24 12:07 | disposition home or self-care (01) ==
PROVIDERS: PCP Family Medicine; Visit Provider Psychiatry & Neurology Neurology
DX: R41.82 Altered mental status, unspecified (principal); E11.9 Type 2 diabetes mellitus without complications
CPT/HCPCS: 36415; 84436; 84443; 84482

== ENCOUNTER 2023-01-09 08:10 | Outpatient (CLI) | payer MEDICARE, SELFPAY ==
[2023-01-09 08:44] LABS: Hematocrit 35.4 % (42.0-52.0); Hemoglobin 11.4 g/dL (14.0-18.0); Mean Corpuscular HGB Conc 32.2 g/dl (32-36); Mean Corpuscular Hemoglobin 31.7 pg (26-34); Mean Corpuscular Volume 98.3 fl (80-100); Mean Platelet Volume 11.2 fl (7.4-10.4); Platelet Count Result 181 k/mm3 (150-375); Red Cell Distribution Width 14.5 % (11.5-14.5); White Blood Count 7.6 K/mm3 (4.5-10.0)
[2023-01-09 08:49] LABS: Cholesterol 161 mg/dL (0-200); Glucose 155 mg/dL (65-110); HDL Direct 33 mg/dL; Triglycerides 172 mg/dL (<150)
[2023-01-09 09:00] LABS: LDL Cholesterol Direct 94 mg/dL
[2023-01-09 09:13] LABS: Free T4 Free Thyroxine 1.12 ng/mL (0.78-2.19); Vitamin D 25 Hydroxy 34.7 ng/mL
[2023-01-09 09:17] LABS: Creatinine Urine 141.1 mg/dL
[2023-01-09 09:18] LABS: Thyroid Stimulating Hormone 0.715 uIU/mL (0.465-4.680)
[2023-01-09 09:22] LABS: Microalbumin Urine Random 45.2 mg/L (0-16.7)
[2023-01-13 17:08] LABS: Glutamic acid decarboxylase AA <5 IU/mL (<5)
[2023-01-14 04:54] LABS: C-Peptide 5.15 ng/mL (0.80-3.85)
== END 2023-01-09 08:11 | disposition home or self-care (01) ==
PROVIDERS: Nurse Practitioner Family; PCP Family Medicine; Visit Provider Internal Medicine
DX: E11.59 Type 2 diabetes mellitus with other circulatory complications (principal); R94.6 Abnormal results of thyroid function studies; Z13.820 Encounter for screening for osteoporosis; E78.2 Mixed hyperlipidemia; I10 Essential (primary) hypertension; D64.9 Anemia, unspecified
CPT/HCPCS: 36415; 80061; 82043; 82306; 82947; 84439; 84443; 84681; 85027; 86341

== ENCOUNTER 2023-08-27 07:11 | Outpatient (CLI) | payer MEDICARE, SELFPAY ==
[2023-08-27 08:20] LABS: Anion Gap 8 mmol/L (8-16); Blood Urea Nitrogen 44 mg/dL (9-20); Calcium 9.9 mg/dL (8.4-10.2); Carbon Dioxide 29 mmol/L (22-30); Chloride 103 mmol/L (98-107); Cholesterol 201 mg/dL (0-200); Estimated Glomerular Filt Rate 40; Glucose 110 mg/dL (65-110); HDL Direct 35 mg/dL; Potassium 4.1 mmol/L (3.4-5.0); Sodium 140 mmol/L (137-145); Triglycerides 122 mg/dL (<150)
[2023-08-27 08:29] LABS: NT Pro B Type Natriuretic Pept 30 pg/mL (19.9-100)
[2023-08-27 08:30] LABS: LDL Cholesterol Direct 106 mg/dL
== END 2023-08-27 07:12 | disposition home or self-care (01) ==
PROVIDERS: PCP Family Medicine
DX: R06.09 Other forms of dyspnea (principal); R07.9 Chest pain, unspecified
CPT/HCPCS: 36415; 80048; 80061; 83880

== ENCOUNTER → 2023-09-24 14:57 | Outpatient (CLI) | payer MEDICARE, SELFPAY ==
--- NOTE | ~2023-09-24 | US_ITS ---
EXAMINATION: US soft tissue head and neck DATE: 09/24/2023 15:23 INDICATION: Right cheek lump. TECHNIQUE: Multiple grayscale and Doppler ultrasound images of the head and neck were obtained. COMPARISON: None FINDINGS: There are normal submandibular lymph nodes in the patient's area of concern. IMPRESSION: 1. Normal submandibular lymph nodes in the patient's area of concern. Reviewed, dictated and finalized at location E. MAN
== END ==
PROVIDERS: PCP Family Medicine; Visit Provider Nurse Practitioner
DX: R22.9 Localized swelling, mass and lump, unspecified (principal); Z85.820 Personal history of malignant melanoma of skin
CPT/HCPCS: 76536

== ENCOUNTER 2023-10-17 07:44 | Outpatient (CLI) | payer MEDICARE, SELFPAY ==
[2023-10-17 08:39] LABS: Albumin Level 3.6 g/dL (3.5-5.1); Anion Gap 4 mmol/L (8-16); Blood Urea Nitrogen 33 mg/dL (9-20); Calcium 9.6 mg/dL (8.4-10.2); Carbon Dioxide 27 mmol/L (22-30); Chloride 107 mmol/L (98-107); Estimated Glomerular Filt Rate 54; Glucose 122 mg/dL (65-110); Phosphorus 3.8 mg/dL (2.5-4.5); Potassium 4.1 mmol/L (3.4-5.0); Sodium 138 mmol/L (137-145)
[2023-10-17 09:35] LABS: Creatinine Urine 70.7 mg/dL
[2023-10-17 09:39] LABS: MALB Creatinine Ratio 20.9 mg/g (0-30); Microalbumin Urine Random 14.8 mg/L (0-16.7)
== END 2023-10-17 07:45 | disposition home or self-care (01) ==
LOC: ANHLAB 07:46
PROVIDERS: PCP Family Medicine; Visit Provider Internal Medicine
DX: E11.59 Type 2 diabetes mellitus with other circulatory complications (principal); E11.22 Type 2 diabetes mellitus with diabetic chronic kidney disease; N18.4 Chronic kidney disease, stage 4 (severe)
CPT/HCPCS: 36415; 80069; 82043

== ENCOUNTER 2023-11-17 11:45 | Outpatient (CLI) | payer MEDICARE, SELFPAY ==
[2023-11-17 12:21] LABS: Hematocrit 36.4 % (42.0-52.0); Hemoglobin 11.7 g/dL (14.0-18.0); Mean Corpuscular HGB Conc 32.1 g/dl (32-36); Mean Corpuscular Volume 96.6 fl (80-100); Mean Platelet Volume 10.7 fl (7.4-10.4); Platelet Count Result 172 k/mm3 (150-375); Red Blood Count 3.77 M/mm3 (4.6-6.20); Red Cell Distribution Width 13.5 % (11.5-14.5); White Blood Count 7.4 K/mm3 (4.5-10.0)
[2023-11-17 12:26] LABS: Appearance Urine Clear (Clear); Bacteria Urine None Seen /hpf; Bilirubin Urine Negative (Negative); Blood Urine Negative (Negative); Color Urine Yellow (Yellow); Glucose Urine UA Negative (Negative); Ketones Urine Negative (Negative); Leukocyte Esterase Ur Negative LEU/UL (Negative); Nitrate Urine Negative (Negative); Non Pathogenic Casts 0-2; Protein Urine Trace mg/dL (Negative); RBC Urine 0-2 /hpf (0-2); Specific Grav Ur 1.014 (1.001-1.035); Squamous Epithelial Cell Urine None Seen /hpf (Few); Urobilinogen Urine 0.2 mg/dL (<2.0); WBC Urine 0-5 /hpf (0-3); pH Urine 5.5 (5.0-9.0)
[2023-11-17 12:29] LABS: Add Urine Microscopic? YES
[2023-11-17 12:31] LABS: Creatinine Urine 58.3 mg/dL; Total Protein Urine Random 20 mg/dL; Ur Ttl Prot Creatinine Ratio 0.34 mg/mg (0-0.20)
[2023-11-17 14:15] LABS: Erythrocyte Sedimentation Rate 72 mm/hr (0-20)
[2023-11-17 15:18] LABS: Albumin Level 3.8 g/dL (3.5-5.1); Anion Gap 3 mmol/L (8-16); Blood Urea Nitrogen 33 mg/dL (9-20); Calcium 9.8 mg/dL (8.4-10.2); Carbon Dioxide 27 mmol/L (22-30); Chloride 108 mmol/L (98-107); Creatine Kinase 177 U/L (55-170); Estimated Glomerular Filt Rate 50; Glucose 115 mg/dL (65-110); Phosphorus 2.7 mg/dL (2.5-4.5); Potassium 4.3 mmol/L (3.4-5.0); Sodium 138 mmol/L (137-145)
[2023-11-17 15:23] LABS: Complement C3 151 mg/dL (88-165)
[2023-11-19 12:08] LABS: Kappa\\Lambda Light Chains 1.33 (0.26-1.65); Lambda Light Chain 36.4 mg/L (5.7-26.3)
[2023-11-21 16:41] LABS: Complement Total CH50 >60 U/mL (31-60)
== END 2023-11-17 11:46 | disposition home or self-care (01) ==
LOC: ANHLAB 11:51
PROVIDERS: PCP Family Medicine; Visit Provider Internal Medicine Nephrology
DX: N18.31 Chronic kidney disease, stage 3a (principal); E11.9 Type 2 diabetes mellitus without complications
CPT/HCPCS: 36415; 80069; 82550; 82570; 83883; 83970; 84156; 85027; 85652; 86038; 86039; 86160; 86162

== ENCOUNTER 2023-11-19 07:13 | Outpatient (CLI) | payer MEDICARE, SELFPAY ==
[2023-11-19 11:52] LABS: Total Volume 24 Hour Urine 2100 ml; Urea Nitrogen 24 Hour Urine 13.4 G/DAY (12-20)
[2023-11-26 08:22] LABS: Albumin 44 %; Creat 24 Hr 1.38 g/24 h (0.50-2.15); Pro/Creat Ratio 273 mg/g creat (<100); Pro/Creat Ratio mg/mg 0.273 (<0.100); Protein,total, 24 Hr Ur 378 mg/24 h (<100)
== END 2023-11-19 07:14 | disposition home or self-care (01) ==
LOC: ANHLAB 07:15
PROVIDERS: PCP Family Medicine; Visit Provider Internal Medicine Nephrology
DX: N18.31 Chronic kidney disease, stage 3a (principal)
CPT/HCPCS: 36415; 81050; 84540; 86334; 86335

== ENCOUNTER 2023-11-26 13:19 | Outpatient (CLI) | payer MEDICARE, SELFPAY ==
[2023-11-26 14:21] LABS: Rheumatoid Factor 93.3 IU/ML (<12)
[2023-11-26 14:47] LABS: Erythrocyte Sedimentation Rate 112 mm/hr (0-20)
[2023-11-30 21:12] LABS: SM Antibody <1.0; SM/RNP Antibody <1.0; SS-A <1.0; SS-B <1.0
[2023-12-01 21:40] LABS: ANCA Screen Negative (Negative)
[2023-12-02 02:27] LABS: Anti Glomerular Basement Memb <1.0 AI (<1.0)
[2023-12-03 18:46] LABS: Cryoglobulin, QL Negative (Negative)
== END 2023-11-26 13:20 | disposition home or self-care (01) ==
LOC: ANHLAB 13:26
PROVIDERS: PCP Family Medicine; Visit Provider Internal Medicine Nephrology
DX: R76.0 Raised antibody titer (principal); N18.31 Chronic kidney disease, stage 3a
CPT/HCPCS: 36415; 82595; 83520; 85652; 86036; 86038; 86039; 86225; 86235; 86430

== ENCOUNTER 2024-01-20 13:13 | Outpatient (CLI) | payer MEDICARE, SELFPAY ==
--- NOTE | ~2024-01-20 | XR_ITS ---
XR lumbar spine 2-3V DATE: 01/20/2024 13:25 INDICATION: Low back pain TECHNIQUE: AP, lateral, coned lateral lumbosacral views COMPARISON: None FINDINGS: There is osteopenia. Included lower thoracic and lumbar pedicles are intact. Normal alignment of the lumbar vertebrae. No fracture or bone destruction is detected. There is multilevel degenerative disc disease, moderate at L1 to, mild at L2-3, moderately severe L3- 4, mild at L4-5. The sacroiliac joints are intact. There is extensive calcification of the abdominal aorta. Distal abdominal aortic arterial stent exten ding into the right common and external iliac and left common iliac arteries. IMPRESSION: Multilevel degenerative disc disease Osteopenia Aortobiiliac arterial stent Reviewed, dictated and finalized at location B.
== END 2024-01-20 13:14 | disposition home or self-care (01) ==
LOC: ANHIMG 13:14
PROVIDERS: PCP Family Medicine; Visit Provider Nurse Practitioner Adult Health
DX: M51.36 Other intervertebral disc degeneration, lumbar region (principal); M85.88 Other specified disorders of bone density and structure, other site; Z95.5 Presence of coronary angioplasty implant and graft
CPT/HCPCS: 72100

== ENCOUNTER 2024-04-28 06:50 | Outpatient (CLI) | payer MEDICARE, SELFPAY ==
[2024-04-28 07:51] LABS: Hematocrit 33.7 % (42.0-52.0); Hemoglobin 11.1 g/dL (14.0-18.0); Mean Corpuscular HGB Conc 32.9 g/dl (32-36); Mean Corpuscular Hemoglobin 31.4 pg (26-34); Mean Corpuscular Volume 95.5 fl (80-100); Mean Platelet Volume 10.8 fl (7.4-10.4); Platelet Count Result 179 k/mm3 (150-375); Red Blood Count 3.53 M/mm3 (4.6-6.20); Red Cell Distribution Width 13.9 % (11.5-14.5); White Blood Count 7.2 K/mm3 (4.5-10.0)
[2024-04-28 09:21] LABS: Albumin Level 3.9 g/dL (3.5-5.1); Anion Gap 7 mmol/L (4-12); Blood Urea Nitrogen 25 mg/dL (9-20); Calcium 10.4 mg/dL (8.4-10.2); Carbon Dioxide 29 mmol/L (22-30); Chloride 103 mmol/L (98-107); Estimated Glomerular Filt Rate 42; Glucose 99 mg/dL (65-110); Phosphorus 3.4 mg/dL (2.5-4.5); Sodium 139 mmol/L (137-145)
[2024-04-28 09:42] LABS: Creatinine Urine 63.2 mg/dL; Total Protein Urine Random 48 mg/dL; Ur Ttl Prot Creatinine Ratio 0.76 mg/mg (0-0.20)
[2024-04-28 09:57] LABS: Parathyroid Intact 36.4 pg/mL (14.5-75.2)
== END 2024-04-28 06:51 | disposition home or self-care (01) ==
LOC: ANHLAB 06:52
PROVIDERS: PCP Family Medicine; Visit Provider Internal Medicine Nephrology
DX: E11.22 Type 2 diabetes mellitus with diabetic chronic kidney disease (principal); N18.31 Chronic kidney disease, stage 3a
CPT/HCPCS: 36415; 80069; 82570; 83970; 84156; 85027

== ENCOUNTER 2024-05-23 15:56 | Outpatient (CLI) | payer MEDICARE, SELFPAY ==
[2024-05-23 16:44] LABS: Anion Gap 8 mmol/L (4-12); Blood Urea Nitrogen 49 mg/dL (9-20); Calcium 10.1 mg/dL (8.4-10.2); Carbon Dioxide 23 mmol/L (22-30); Chloride 102 mmol/L (98-107); Estimated Glomerular Filt Rate 37; Glucose 113 mg/dL (65-110); Phosphorus 3.4 mg/dL (2.5-4.5); Potassium 4.8 mmol/L (3.4-5.0); Sodium 133 mmol/L (137-145)
[2024-05-23 16:45] LABS: Creatinine Urine 49.4 mg/dL; Total Protein Urine Random 18 mg/dL; Ur Ttl Prot Creatinine Ratio 0.36 mg/mg (0-0.20)
== END 2024-05-23 15:57 | disposition home or self-care (01) ==
LOC: ANHLAB 16:01
PROVIDERS: PCP Family Medicine; Visit Provider Internal Medicine Nephrology
DX: N18.31 Chronic kidney disease, stage 3a (principal)
CPT/HCPCS: 36415; 80069; 82570; 84156

== ENCOUNTER 2024-06-16 14:26 | Outpatient (CLI) | payer MEDICARE, SELFPAY ==
--- NOTE | ~2024-06-16 | CT_ITS ---
EXAMINATION: CT lumbar spine wo con DATE: 06/16/2024 15:07 INDICATION: Spinal stenosis, lumbar region with neurogenic claudication. Prostate cancer. TECHNIQUE: Computed tomography (CT) of the lumbar spine was performed without intravenous contrast. A utomated exposure control and iterative reconstruction technique were employed. The dose-length produ ct was 585.57 mGy-cm. COMPARISON: None FINDINGS: There is calcified atherosclerosis of the aorta and many of the other arteries. There are s tents in the common iliac arteries and right external iliac artery. There is 5 degrees levocurvature of lumbar spine. There is a chronic compression fracture of L4 with 1/5 loss of height. There is mild chronic anterior wedging of L1 vertebral body. There is mildly decreased disc height at L1-L2, sever ernie decreased disc height at L3-L4, and moderately decreased disc height at L4-L5. There is a chronic benign bone island in left ilium. The following disc levels are specifically discussed: L1-L2: The disc is bulging. There is mild bilateral facet joint osteoarthritis. There is no neural fo raminal stenosis. There is mild central canal stenosis. L2-L3: The disc does not extend beyond the endplate margin. There is severe right and moderate left f acet joint osteoarthritis. There is no neural foraminal stenosis. There is no central canal stenosis. L3-L4: The disc is bulging. There is moderate right and mild left facet joint osteoarthritis. There i s mild bilateral neural foraminal stenosis. There is mild central canal stenosis. L4-L5: The disc is bulging. There is severe right and moderate left facet joint osteoarthritis. There is mild bilateral neural foraminal stenosis. There is mild central canal stenosis. L5-S1: There is a central protrusion. There is severe bilateral facet joint osteoarthritis. There is mild bilateral neural foraminal stenosis. There is no central canal stenosis. IMPRESSION: 1. Severe lumbar spondylosis. 2. No evidence of metastatic disease. Reviewed, dictated and finalized at location A.
== END 2024-06-16 14:27 | disposition home or self-care (01) ==
LOC: MICIMG 14:27
PROVIDERS: PCP Family Medicine; Visit Provider Anesthesiology Pain Medicine
DX: M48.062 Spinal stenosis, lumbar region with neurogenic claudication (principal); S32.050D Wedge compression fracture of fifth lumbar vertebra, subsequent encounter for fracture with routine healing; Z85.46 Personal history of malignant neoplasm of prostate; X58.XXXD Exposure to other specified factors, subsequent encounter
CPT/HCPCS: 72131

== ENCOUNTER 2024-07-06 11:53 | Outpatient (CLI) | payer MEDICARE, SELFPAY ==
--- NOTE | ~2024-07-06 | XR_ITS ---
Clinical Indication: Shortness of breath PA and lateral views of the chest: Comparison: 11/05/2022 Findings: The lungs are clear, without evidence of focal consolidation or pleural effusion. Stable pr ominence of the central left pulmonary arterial vasculature. Cardiomediastinal silhouette is within n ormal limits. Bones and soft tissues are unremarkable. Impression: No acute abnormality. Stable prominence of the left central pulmonary arterial vasculature. Reviewed, dictated and finalized at location M. ER PLANT SUPERVISOR Impression: No acute abnormality. Stable prominence of the left central pulmonary arterial vasculature.
== END 2024-07-06 11:54 | disposition home or self-care (01) ==
PROVIDERS: PCP Family Medicine; Visit Provider Nurse Practitioner Adult Health
DX: R06.02 Shortness of breath (principal)
CPT/HCPCS: 71046

== ENCOUNTER 2024-07-07 07:12 | Outpatient (CLI) | payer MEDICARE, SELFPAY ==
[2024-07-07 08:24] LABS: Basophils Absolute Auto 0.1 K/mm3 (0.0-0.1); Basophils Percent Auto 0.7 % (0.2-1.2); Eosinophils Absolute Auto 0.2 K/mm3 (0-0.3); Eosinophils Percent Auto 2.3 % (0-4.4); Hematocrit 37.2 % (42.0-52.0); Hemoglobin 12.7 g/dL (14.0-18.0); Immature Granulocyte Absolute 0.05 K/mm3 (0.00-0.031); Immature Granulocyte Percent A 0.6 % (0-0.5); Lymphocytes Absolute Auto 2.11 K/mm3 (0.9-3.2); Lymphocytes Percent Auto 23.3 % (18.3-44.2); Mean Corpuscular HGB Conc 34.1 g/dl (32-36); Mean Corpuscular Hemoglobin 31.8 pg (26-34); Monocytes Absolute Auto 0.9 K/mm3 (0.1-0.6); Monocytes Percent Auto 10.3 % (2.6-8.5); Neutrophils Absolute Auto 5.7 K/mm3 (1.3-6.7); Neutrophils Percent Auto 62.8 % (45.5-73.1); Platelet Count Result 189 k/mm3 (150-375); Red Cell Distribution Width 13.6 % (11.5-14.5); White Blood Count 9.1 K/mm3 (4.5-10.0)
[2024-07-07 09:34] LABS: Alanine Aminotransferase 25 U/L (6-50); Albumin Level 4.1 g/dL (3.5-5.1); Alkaline Phosphatase 108 U/L (38-126); Anion Gap 8 mmol/L (4-12); Aspartate Amino Transferase 34 U/L (17-59); Bilirubin,Total 0.5 mg/dL (0.2-1.3); Blood Urea Nitrogen 40 mg/dL (9-20); Calcium 10.7 mg/dL (8.4-10.2); Carbon Dioxide 29 mmol/L (22-30); Chloride 100 mmol/L (98-107); Estimated Glomerular Filt Rate 28; Glucose 137 mg/dL (65-110); Potassium 3.7 mmol/L (3.4-5.0); Sodium 137 mmol/L (137-145)
[2024-07-07 09:46] LABS: Iron 87 ug/dL (49-181)
[2024-07-07 09:55] LABS: Percent Iron Saturation 28 % (20-50)
== END 2024-07-07 07:13 | disposition home or self-care (01) ==
PROVIDERS: PCP Family Medicine; Visit Provider Nurse Practitioner Adult Health
DX: D64.9 Anemia, unspecified (principal); E87.1 Hypo-osmolality and hyponatremia; R42 Dizziness and giddiness
CPT/HCPCS: 36415; 80053; 83540; 83550; 85025

== ENCOUNTER 2024-07-10 16:21 | Inpatient (IN) | payer MEDICARE, SELFPAY ==
[2024-07-10] VITALS (13 sets, daily range): BP systolic 104–174; BP diastolic 56–73; PULSE 93–127; RESP 11–24; TEMP 36.3–36.8; O2SAT 93–100; BMI 28.3
--- NOTE | ~2024-07-10 | CT_ITS ---
EXAMINATION: CT brain wo con DATE: 07/10/2024 17:17 INDICATION: dizziness . TECHNIQUE: Computed tomography (CT) of the head was performed without intravenous contrast. The mA wa s adjusted according to patient size. Iterative reconstruction technique was employed. The dose-lengt h product was 605.33 mGy-cm. COMPARISON: 11/05/2022. FINDINGS: No acute intracranial hemorrhage or extra-axial fluid collection. No hydrocephalus, mass, or herniation. No acute ischemic infarct. Unremarkable dural venous sinus attenuation. No acute osseous abnormality. Small retention cyst/polyp in the left sphenoid sinus, the remaining aerated spaces are clear. Mild atrophy and chronic white matter change. Atherosclerotic intracranial calcification. IMPRESSION: No acute intracranial process. Reviewed, dictated and finalized at location K. MOBILE SALES CONSULTANT
--- NOTE | ~2024-07-10 | XR_ITS ---
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 RESULT: Lines, tubes, and devices: None. Lungs and pleura: Clear. Cardiomediastinal silhouette: Dilated central pulmonary arteries. Other: No acute osseous or upper abdominal finding. IMPRESSION: No acute cardiopulmonary process. Reviewed, dictated and finalized at location K. ING MACHINE OPERATOR
--- NOTE | ~2024-07-10 | US_ITS ---
US renal BI Ordering provider: Alpesh Alan MD History: . [place] . Comparison: None. Technique: Ultrasound bilateral kidneys. Findings: RIGHT KIDNEY: Measures 5.4x 10.3x 4.6 cm in length which is normal in size. No renal cysts. No renal mass or visualized echogenic stones. Otherwise, normal echotexture and contour. No hydronephrosis. No rmal renal cortical thickness. lobation is seen. LEFT KIDNEY: Measures 5.6x 9.6x 4 cm in length which is normal in size. No renal cysts. No renal mass or visualized echogenic stones. Otherwise, normal echotexture and contour. No hydronephrosis. Normal renal cortical thickness. lobation noted. BLADDER: Diverticulum seen on the left side otherwise, no definite abnormality. Ureteral jets were no t seen bilaterally. IMPRESSION: Bilateral lobation is noted. Diverticulum to the left side of the urinary bladder. Reviewed, dictated and finalized at location A. ANDRA DEVELOPER
--- NOTE | ~2024-07-10 | US_ITS ---
EXAMINATION: US renal BI DATE: 07/16/2024 08:16 INDICATION: Acute on chronic kidney disease. TECHNIQUE: Multiple ultrasound grayscale images of the kidneys were obtained. COMPARISON: Chest CT 07/10/2024 FINDINGS: The right kidney measures 9.7 x 4.5 x 4.0 cm. The left kidney measures 10.0 x 4.8 x 4.8 cm. The kidne ys demonstrate normal parenchymal echogenicity. There is no hydronephrosis. The bladder is normal. IMPRESSION: 1. Normal kidney sizes. No hydronephrosis. Reviewed, dictated and finalized at location A. UCTION LABORER
--- NOTE | ~2024-07-10 | CT_ITS ---
EXAMINATION: CTA chest PE protocol DATE: 07/10/2024 19:07 INDICATION: hypoxia and tachycardia TECHNIQUE: Computed tomography angiography (CTA) of the chest was performed with 100 mL Omnipaque-350 intravenous contrast timed to evaluate the pulmonary arteries. Coronal maximum intensity projection 3D-reconstructions were created by the technologist. The dose-length product (DLP) was 304.08 mGy-cm. Automated exposure control and iterative reconstruction technique were employed. COMPARISON: X-ray chest, same date; CTPA 11/01/2021. FINDINGS: Lung parenchyma and airways: Clear. Calcified granulomas. Pleura: Unremarkable. Thoracic inlet, axillae and chest wall: 1.7 cm partially calcified right thyroid nodule. Thoracic aorta: No significant dilation. No dissection. Moderate atherosclerotic calcification. Mediastinum: Dilated central pulmonary arteries as can be seen with pulmonary arterial hypertension. Heart and pericardium: Mild cardiomegaly. Coronary artery calcifications: Mild. Upper abdomen: No significant finding. Bones: No acute osseous finding. Pulmonary arteries: Study quality: Adequate. No pulmonary emboli detected. IMPRESSION: No CT evidence of acute pulmonary embolus. No acute process detected in the chest. Reviewed, dictated and finalized at location K. UCT SAFETY ASSOCIATE
--- NOTE | ~2024-07-10 | US_ITS ---
Procedure: Duplex Doppler examination of the bilateral carotids. Indication: Orthostatic hypotension Technique: Real time, color-flow and pulse wave Doppler examination of the bilateral carotids was performed. Findings: [place] scale ultrasonography of the right neck demonstrated tiny plaques in the right common carotid ar maría. There was demonstration of normal color-flow and Doppler waveforms within the right common, int ernal and external carotid arteries. The peak systolic velocities in the right common, internal and e xternal carotid arteries were demonstrated to be 142 cm/sec, 160 cm/sec and 216 cm/sec respectively. The right ICA/CCA ratio was 1.1.The proximal right internal carotid artery demonstrates 0% stenosis r elative to the normal distal artery lumen diameter. [place] scale sonography of the left neck demonstrated heterogeneous plaque within the left proximal ICA . There was demonstration of normal color-flow and wave forms within the left common, internal and ex ternal carotid arteries. The peak systolic velocities in the left common, internal and external carot id arteries were demonstrated to be 155cm/sec, 84 cm/sec and 81 cm/sec respectively. The left ICA/CCA ratio was 0.7. The proximal left internal carotid artery demonstrates 0% stenosis relative to the no rmal distal artery lumen diameter. There was antegrade flow demonstrated in the left vertebral artery. There is apparent retrograde flow in the right vertebral artery. Impression: Mildly elevated velocities in the right internal carotid artery suggest moderate (50-69%) stenosis. Retrograde flow in the right vertebral artery. Consider subclavian steal syndrome. Note: The methodology used is an indirect measurement validated against a direct method (such as the NASCET criteria) that compares diameters at the stenosis to the distal ICA. Reviewed, dictated and finalized at location . LATION ENGINEER Impression: Mildly elevated velocities in the right internal carotid artery suggest moderat e (50-69%) stenosis. Retrograde flow in the right vertebral artery. Consider subclavian steal syndro me. Note: The methodology used is an indirect measurement validated against a direct meth od (such as the NASCET criteria) that compares diameters at the stenosis to the distal ICA.
--- NOTE | 2024-07-10 16:31 | ED.GENADULT ---
HPI - General Adult General Chief complaint: Dizziness <Long Cooper MD - Last Filed: 07/11/24 12:06> Stated complaint: light headed <Long Cooper MD - Last Filed: 07/11/24 12:06> Time Seen by Provider: 07/10/24 18:56 <Long Cooper MD - Last Filed: 07/11/24 12:06> History of Present Illness HPI narrative: 73-year-old male present to the emergency department for evaluation of intermittent lightheaded dizziness that has been ongoing for the last few days. Patient states his lightheaded dizziness is worsened with ambulation. <Long Cooper MD - Last Filed: 07/11/24 12:06> Related Data Home medications: Home Medications Medication Instructions Recorded Confirmed nitroglycerin 0.3 mg sublingual 0.3 mg sublingual PRN PRN Chest 12/05/21 07/10/24 tablet Pain ticagrelor 60 mg tablet (Brilinta) 60 mg PO BID 12/05/21 07/10/24 aspirin 81 mg tablet,delayed 81 mg PO DAILY 12/06/21 07/10/24 release (Adult Aspirin Regimen) chlorthalidone 25 mg tablet 25 mg PO DAILY 04/16/23 07/10/24 rosuvastatin 40 mg tablet 40 mg PO DAILY 10/13/23 07/10/24 telmisartan 80 mg tablet 80 mg PO DAILY 06/08/24 07/10/24 famotidine 20 mg tablet 20 mg PO DAILY 07/06/24 07/10/24 pentoxifylline 400 mg 400 mg PO TID 07/06/24 07/10/24 tablet,extended release calcium carbonate (Tums) 200 mg PO TID PRN heart burn 07/11/24 07/11/24 <Long Cooper MD - Last Filed: 07/11/24 12:06> Allergies/adverse reactions: Allergies Allergy/AdvReac Type Severity Reaction Status Date / Time dapagliflozin [From Farxiga] AdvReac Severe Hallucinati Verified 07/10/24 20:42 ng metformin AdvReac Severe Diarrhea Verified 07/10/24 20:42 semaglutide [From Ozempic] AdvReac Intermediate Confusion Verified 07/10/24 20:42 <Long Cooper MD - Last Filed: 07/11/24 12:06> Review of Systems Review of Systems: All systems reviewed & are unremarkable except as noted in HPI and below <Long Cooper MD - Last Filed: 07/11/24 12:06> [facility] Past Medical History Medical History: Medical History 1st MTP arthritis Adenomatous colon polyp Anemia Arthritis BMI 25.0-25.9,adult BMI 25.0-25.9,adult BMI 26.0-26.9,adult BMI 26.0-26.9,adult BMI 27.0-27.9,adult BMI between 19-24,adult CAD (coronary artery disease) Carotid stenosis, asymptomatic h/o intracranial cerebral stenosis, evaluated at [facility] 05/2019, thought not to be symptomatic cont med tx. Carpal tunnel syndrome on both sides Cerebrovascular disease Chills Chronic pain Collagenous colitis Colonoscopy planned Depression Diabetic polyneuropathy Dysphagia Fever GERD (gastroesophageal reflux disease) Glaucoma Gout (~08/2019) Groin discomfort Heart disease High cholesterol History of blood clots History of prostate cancer HLD (hyperlipidemia) HTN (hypertension) Hyponatremia Left shoulder pain Light headedness Lumbar spine pain Microscopic colitis Overweight Personal history of DVT (deep vein thrombosis) Prostate cancer Right shoulder pain Shortness of breath SOB (shortness of breath) Spasmodic bladder Stenosis of infrarenal abdominal aorta due to arteriosclerosis Says his aorta is mildly enlarged Tendinitis of both rotator cuffs Trochanteric bursitis, left hip Trochanteric bursitis, right hip Type 2 diabetes mellitus without complications Wears glasses <Long Cooper MD - Last Filed: 07/11/24 12:06> Surgical History Surgical History: Surgical History H/O cardiac catheterization H/O carotid endarterectomy (~10/2022) H/O cystoscopy H/O heart artery stent H/O rectal polypectomy History of angioplasty History of cataract surgery History of colonoscopy 2019 History of prostatectomy Had prostate cancer, status post prostatectomy and later radiation therapy. Has an implanted device to help with urinary incontinence. History of rotator cuff surgery Hx of endarterectomy S/P arthroscopic surgery of left knee <Long Cooper MD - Last Filed: 07/11/24 12:06> Family History Family History: Family History Father , of lung cancer age 83 Hypertension Lung cancer Sibling Hypertension Mother Family history of malignant neoplasm of breast in first degree relative Breast cancer of breast cancer age 37 Sibling No problems noted. Other Diabetes mellitus Family history of cardiovascular disease Family history of elevated blood lipids Family history of malignant neoplasm <Long Cooper MD - Last Filed: 07/11/24 12:06> Social History Social History: Social History Social History: The patient has 2 sons and is . He does not have a durable power employment attorney. Wishes to be a full code. 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 Smoking packs per day: 1 Smoking cigarettes per day: 20.0 Years smoked: 15 Smoking pack-years: 15.00 Smoking status: Former smoker Tobacco type: cigarettes Second hand tobacco smoke exposure: No Smoking end date: 08/31/82 Alcohol intake: current Drinks per week: 14 Substance use: former Substance use type: marijuana Other substance usage details: no beer in over a week; no marijuana in 9 months Do You Feel Safe in your Home?: Yes Lack of Transportation: No Lack of Food: Never True Current Housing: I Have Housing Concerned About Future Housing: No Difficulty Paying Gas/Electric Bills: No Difficulty Paying for Meds: No Currently Unemployed: No Education: Trade/Vocational Certificate Difficulty w/ Childcare or Family Care: No Living arrangements: alone Occupation/Education: retired Additional occupation/education comments: 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 Gender identity (if verbalized by the patient): Male Spiritual care concerns: No Agree to blood products: Yes <Long Cooper MD - Last Filed: 07/11/24 12:06> Exam Narrative: APPEARANCE: Well appearing, no pain, no distress, well-nourished. HEAD: normocephalic, atraumatic. EYES: PERRLA/EOMI, conjunctivae clear. NOSE: Normal no drainage EARS:TMS clear with good light reflex. THROAT: Pharynx clear, no exudate. NECK: Supple. No adenopathy, no masses. RESPIRATORY: Airway patent, respirations nonlabored. Clear to auscultation bilaterally, no rales, rhonchi, wheezing. CARDIOVASCULAR: Regular rate and rhythm without murmurs rubs or gallops. ABDOMINAL: Soft, nontender, nondistended, normal bowel sounds MUSCULOSKELETAL: Moves all extremities. Strength/ROM intact, No edema, No calf tenderness. NEURO: Alert. Cranial nerves II through XII intact. Good gait. Good coordination SKIN: Warm, dry. Normal Color <Long Cooper MD - Last Filed: 07/11/24 12:06> Course Consultations Consultation #1: Spoke with hospitalist about patient and workup who accepts admission <Frida Chavez PA-C - Last Filed: 07/10/24 20:33> Date: 07/10/24 <Frida Chavez PA-C - Last Filed: 07/10/24 20:33> Vital Signs Vital signs: Vital Signs Temperature 97.4 F L 07/10/24 16:34 Pulse Rate 106 H 07/10/24 16:34 Respiratory Rate 17 07/10/24 16:34 Blood Pressure 131/66 07/10/24 16:34 Pulse Oximetry 100 07/10/24 16:34 Temperature 97.2 F L 07/11/24 06:00 Pulse Rate 86 07/11/24 08:00 Respiratory Rate 12 07/11/24 06:00 Blood Pressure 126/55 L 07/11/24 06:00 Pulse Oximetry 99 07/11/24 08:41 Oxygen Delivery Room Air 07/11/24 08:41 Fraction of Inspired Oxygen 21 07/11/24 08:41 <Long Cooper MD - Last Filed: 07/11/24 12:06> Vital Signs Temperature 97.4 F L 07/10/24 16:34 Pulse Rate 106 H 07/10/24 16:34 Respiratory Rate 17 07/10/24 16:34 Blood Pressure 131/66 07/10/24 16:34 Pulse Oximetry 100 07/10/24 16:34 Temperature 97.2 F L 07/11/24 06:00 Pulse Rate 86 07/11/24 08:00 Respiratory Rate 12 07/11/24 06:00 Blood Pressure 126/55 L 07/11/24 06:00 Pulse Oximetry 99 07/11/24 08:41 Oxygen Delivery Room Air 07/11/24 08:41 Fraction of Inspired Oxygen 21 07/11/24 08:41 <Frida Chavez PA-C - Last Filed: 07/10/24 20:33> Medical Decision Making MDM Narrative Medical decision making narrative: 73-year-old male presents emergency department for evaluation for lightheaded dizziness. Patient was persistently tachycardic and did have positive orthostatic vital signs. Patient initially stated that he did feel better and was willing to ambulate. Patient did not ambulate well. Patient's heart rate went up to 150 and his pulse ox dropped to ED. Patient did recover once lying back down again. Patient is afebrile with a minor leukocytosis of 10.5 and a stable hemoglobin of 12.6, patient's creatinine is 2.2 which is higher than his baseline of 1.7. UA was negative for infection. Chest x-ray showed no acute cardiopulmonary abnormality and head CT was negative for acute intracranial abnormality. At time of sign-out CTA PE study is pending <Long Cooper MD - Last Filed: 07/11/24 12:06> 73-year-old male presents emergency department for evaluation for lightheaded dizziness. Patient was persistently tachycardic and did have positive orthostatic vital signs. Patient initially stated that he did feel better and was willing to ambulate. Patient did not ambulate well. Patient's heart rate went up to 150 and his pulse ox dropped to 80s. Patient did recover once lying back down again. Patient is afebrile with a minor leukocytosis of 10.5 and a stable hemoglobin of 12.6, patient's creatinine is 2.2 which is higher than his baseline of 1.7. UA was negative for infection. Chest x-ray showed no acute cardiopulmonary abnormality and head CT was negative for acute intracranial abnormality. At time of sign-out CTA PE study is pending CTA PE without evidence of pulmonary embolism or acute cardiopulmonary abnormality. Does show a small thyroid nodule. Patient updated on his workup and recommendation for admission. Spoke with hospitalist about patient and workup who accepts admission <Frida Chavez PA-C - Last Filed: 07/10/24 20:33> Differential Diagnosis Differential Diagnosis: Pneumonia, pulmonary embolism, pneumothorax <Long Copoer MD - Last Filed: 07/11/24 12:06> Vital Signs Vital Signs: Vital Signs Temperature 97.4 F L 07/10/24 16:34 Pulse Rate 106 H 07/10/24 16:34 Respiratory Rate 17 07/10/24 16:34 Blood Pressure 131/66 07/10/24 16:34 Pulse Oximetry 100 07/10/24 16:34 Temperature 97.2 F L 07/11/24 06:00 Pulse Rate 86 07/11/24 08:00 Respiratory Rate 12 07/11/24 06:00 Blood Pressure 126/55 L 07/11/24 06:00 Pulse Oximetry 99 07/11/24 08:41 Oxygen Delivery Room Air 07/11/24 08:41 Fraction of Inspired Oxygen 21 07/11/24 08:41 <Long Cooper MD - Last Filed: 07/11/24 12:06> Vital Signs Temperature 97.4 F L 07/10/24 16:34 Pulse Rate 106 H 07/10/24 16:34 Respiratory Rate 17 07/10/24 16:34 Blood Pressure 131/66 07/10/24 16:34 Pulse Oximetry 100 07/10/24 16:34 Temperature 97.2 F L 07/11/24 06:00 Pulse Rate 86 07/11/24 08:00 Respiratory Rate 12 07/11/24 06:00 Blood Pressure 126/55 L 07/11/24 06:00 Pulse Oximetry 99 07/11/24 08:41 Oxygen Delivery Room Air 07/11/24 08:41 Fraction of Inspired Oxygen 21 07/11/24 08:41 <Frida Chavez PA-C - Last Filed: 07/10/24 20:33> Lab Data Lab results reviewed: Yes I reviewed the patient's lab results. <Frida Chavez PA-C - Last Filed: 07/10/24 20:33> Result diagrams: 07/11/24 08:53 07/11/24 08:53 <Long Cooper MD - Last Filed: 07/11/24 12:06> Labs: Lab Results 07/10/24 07/10/24 Range/Units 16:40 16:44 WBC 10.5 H (4.5-10.0) K/mm3 RBC 4.07 L (4.6-6.20) M/mm3 Hgb 12.6 L (14.0-18.0) g/dL Hct 36.9 L (42.0-52.0) % MCV 90.7 (80-100) fl MCH 31.0 (26-34) pg MCHC 34.1 (32-36) g/dl RDW 13.5 (11.5-14.5) % Plt Count 212 (150-375) k/mm3 MPV 10.9 H (7.4-10.4) fl Immature Gran % (Auto) 0.5 (0-0.5) % Neut % (Auto) 66.7 (45.5-73.1) % Lymph % (Auto) 22.0 (18.3-44.2) % [place] % (Auto) 8.5 (2.6-8.5) % Eos % (Auto) 1.7 (0-4.4) % Baso % (Auto) 0.6 (0.2-1.2) % Lymph # (Auto) 2.30 (0.9-3.2) K/mm3 [place] # (Auto) 0.9 H (0.1-0.6) K/mm3 Eos # (Auto) 0.2 (0-0.3) K/mm3 Baso # (Auto) 0.1 (0.0-0.1) K/mm3 Abs Immat Gran (auto) 0.05 H (0.00-0.031) K/mm3 Absolute Neuts (auto) 7.0 H (1.3-6.7) K/mm3 Absolute Nucleated RBC 0.000 (0.0-0.012) K/mm3 Nucleated RBC % 0.0 (0.0-0.2) % Sodium 134 L (137-145) mmol/L Potassium 3.5 (3.4-5.0) mmol/L Chloride 97 L (98-107) mmol/L Carbon Dioxide 26 (22-30) mmol/L Anion Gap 11 (4-12) mmol/L BUN 41 H (9-20) mg/dL Creatinine 2.20 H (0.7-1.3) mg/dL Estim Creat Clear Calc 24 ml/min Estimated GFR 29 L (59 - ) Glucose 186 H (65-110) mg/dL Calcium 10.2 (8.4-10.2) mg/dL Total Bilirubin 0.4 (0.2-1.3) mg/dL AST 34 (17-59) U/L ALT 25 (6-50) U/L Alkaline Phosphatase 100 (38-126) U/L Total Protein 8.0 (6.3-8.2) g/dL Albumin 4.3 (3.5-5.1) g/dL Urine Color Yellow (Yellow) Urine Appearance Clear (Clear) Urine pH 6.5 (5.0-9.0) Ur Specific [place] 1.014 (1.001-1.035) Urine Protein 2+ H (Negative) mg/dL Urine Glucose (UA) Negative (Negative) mg/dL Urine Ketones Negative (Negative) mg/dL Ur Blood (Man) 2+ H (Negative) Urine Nitrate Negative (Negative) Urine Bilirubin Negative (Negative) Urine Urobilinogen 1.0 (<2.0) mg/dL Add Ur Microanalysis Reviewed Leukocyte Esterase Rfl Negative (Negative) CYNTHIA/UL Urine RBC 0-2 (0-2) /hpf Urine WBC 0-5 (0-3) /hpf Ur Squamous Epith Cells None seen (Few) /hpf Urine Bacteria None seen /hpf Urine Casts 6-10 <Long Cooper MD - Last Filed: 07/11/24 12:06> Lab Results 07/10/24 07/10/24 Range/Units 16:40 16:44 WBC 10.5 H (4.5-10.0) K/mm3 RBC 4.07 L (4.6-6.20) M/mm3 Hgb 12.6 L (14.0-18.0) g/dL Hct 36.9 L (42.0-52.0) % MCV 90.7 (80-100) fl MCH 31.0 (26-34) pg MCHC 34.1 (32-36) g/dl RDW 13.5 (11.5-14.5) % Plt Count 212 (150-375) k/mm3 MPV 10.9 H (7.4-10.4) fl Immature Gran % (Auto) 0.5 (0-0.5) % Neut % (Auto) 66.7 (45.5-73.1) % Lymph % (Auto) 22.0 (18.3-44.2) % [place] % (Auto) 8.5 (2.6-8.5) % Eos % (Auto) 1.7 (0-4.4) % Baso % (Auto) 0.6 (0.2-1.2) % Lymph # (Auto) 2.30 (0.9-3.2) K/mm3 [place] # (Auto) 0.9 H (0.1-0.6) K/mm3 Eos # (Auto) 0.2 (0-0.3) K/mm3 Baso # (Auto) 0.1 (0.0-0.1) K/mm3 Abs Immat Gran (auto) 0.05 H (0.00-0.031) K/mm3 Absolute Neuts (auto) 7.0 H (1.3-6.7) K/mm3 Absolute Nucleated RBC 0.000 (0.0-0.012) K/mm3 Nucleated RBC % 0.0 (0.0-0.2) % Sodium 134 L (137-145) mmol/L Potassium 3.5 (3.4-5.0) mmol/L Chloride 97 L (98-107) mmol/L Carbon Dioxide 26 (22-30) mmol/L Anion Gap 11 (4-12) mmol/L BUN 41 H (9-20) mg/dL Creatinine 2.20 H (0.7-1.3) mg/dL Estim Creat Clear Calc 24 ml/min Estimated GFR 29 L (59 - ) Glucose 186 H (65-110) mg/dL Calcium 10.2 (8.4-10.2) mg/dL Total Bilirubin 0.4 (0.2-1.3) mg/dL AST 34 (17-59) U/L ALT 25 (6-50) U/L Alkaline Phosphatase 100 (38-126) U/L Total Protein 8.0 (6.3-8.2) g/dL Albumin 4.3 (3.5-5.1) g/dL Urine Color Yellow (Yellow) Urine Appearance Clear (Clear) Urine pH 6.5 (5.0-9.0) Ur Specific [place] 1.014 (1.001-1.035) Urine Protein 2+ H (Negative) mg/dL Urine Glucose (UA) Negative (Negative) mg/dL Urine Ketones Negative (Negative) mg/dL Ur Blood (Man) 2+ H (Negative) Urine Nitrate Negative (Negative) Urine Bilirubin Negative (Negative) Urine Urobilinogen 1.0 (<2.0) mg/dL Add Ur Microanalysis Reviewed Leukocyte Esterase Rfl Negative (Negative) CYNTHIA/UL Urine RBC 0-2 (0-2) /hpf Urine WBC 0-5 (0-3) /hpf Ur Squamous Epith Cells None seen (Few) /hpf Urine Bacteria None seen /hpf Urine Casts 6-10 <Frida Chavez PA-C - Last Filed: 07/10/24 20:33> Critical Care Time Critical Care Time Critical Care Time: No <Frida Chavez PA-C - Last Filed: 07/10/24 20:33> Discharge Plan Discharge Clinical Impression: Light-headedness, Exertional dyspnea <Long Cooper MD - Last Filed: 07/11/24 12:06> Patient Disposition: Still a Patient <Long Cooper MD - Last Filed: 07/11/24 12:06> Condition: Stable <Long Cooper MD - Last Filed: 07/11/24 12:06>
[2024-07-10 16:58] LABS: Basophils Absolute Auto 0.1 K/mm3 (0.0-0.1); Basophils Percent Auto 0.6 % (0.2-1.2); Eosinophils Absolute Auto 0.2 K/mm3 (0-0.3); Eosinophils Percent Auto 1.7 % (0-4.4); Hematocrit 36.9 % (42.0-52.0); Hemoglobin 12.6 g/dL (14.0-18.0); Immature Granulocyte Absolute 0.05 K/mm3 (0.00-0.031); Immature Granulocyte Percent A 0.5 % (0-0.5); Mean Corpuscular HGB Conc 34.1 g/dl (32-36); Mean Corpuscular Volume 90.7 fl (80-100); Mean Platelet Volume 10.9 fl (7.4-10.4); Monocytes Absolute Auto 0.9 K/mm3 (0.1-0.6); Monocytes Percent Auto 8.5 % (2.6-8.5); Neutrophils Percent Auto 66.7 % (45.5-73.1); Platelet Count Result 212 k/mm3 (150-375); Red Blood Count 4.07 M/mm3 (4.6-6.20); Red Cell Distribution Width 13.5 % (11.5-14.5); White Blood Count 10.5 K/mm3 (4.5-10.0)
[2024-07-10 17:03] LABS: Alanine Aminotransferase 25 U/L (6-50); Albumin Level 4.3 g/dL (3.5-5.1); Alkaline Phosphatase 100 U/L (38-126); Anion Gap 11 mmol/L (4-12); Aspartate Amino Transferase 34 U/L (17-59); Bilirubin,Total 0.4 mg/dL (0.2-1.3); Blood Urea Nitrogen 41 mg/dL (9-20); Calcium 10.2 mg/dL (8.4-10.2); Carbon Dioxide 26 mmol/L (22-30); Chloride 97 mmol/L (98-107); Estimated CRCL calculation 24 ml/min; Estimated Glomerular Filt Rate 29; Glucose 186 mg/dL (65-110); Potassium 3.5 mmol/L (3.4-5.0); Sodium 134 mmol/L (137-145)
[2024-07-10 17:12] LABS: Add Urine Microscopic? YES; Appearance Urine Clear (Clear); Bacteria Urine None Seen /hpf; Bilirubin Urine Negative (Negative); Blood Urine 2+ (Negative); Color Urine Yellow (Yellow); Glucose Urine UA Negative (Negative); Ketones Urine Negative (Negative); Leukocyte Esterase Ur Negative LEU/UL (Negative); Need Manual Microscopic Reviewed; Nitrate Urine Negative (Negative); Protein Urine 2+ mg/dL (Negative); RBC Urine 0-2 /hpf (0-2); Specific Grav Ur 1.014 (1.001-1.035); Squamous Epithelial Cell Urine None Seen /hpf (Few); WBC Urine 0-5 /hpf (0-3); pH Urine 6.5 (5.0-9.0)
[2024-07-10] MEDS: SODIUM CHLORIDE 0.9% IV 500 ML 999 ML IV CONT (18:53)
[2024-07-10] MEDS: SODIUM CHLORIDE 0.9% IV 1,000 ML 999 ML IV CONT (18:53)
[2024-07-10] MEDS: MECLIZINE HCL 25 MG TABLET PO (18:53)
--- NOTE | 2024-07-10 18:54 | PC.NURSE ---
Pt ambulated by machine tool technician instructor. Results given to EDP Dr. Cooper. Pt HR increased to 150 and oxygen 85%. Pt resting comfortably in bed at this time, HR and oxygen WNL. Pt states dizziness has decreased.
--- NOTE | 2024-07-10 19:28 | PC.NURSE ---
Report received from BARAK Hayes. Assumed care of patient at this time.
--- NOTE | 2024-07-10 19:57 | P.HP_ITS ---
H&P: HPI History of Present Illness Date/Time: 07/10/24 19:57 Chief Complaint: Dizziness Narrative: This is a 73-year-old male with past medical history significant for coronary artery disease, chronic kidney disease, hypertension, diabetes, diabetic peripheral neuropathy, gout. Patient presents to the emergency room due to lightheadedness for the last 2-3 weeks, shortness of breath with exertion, denies PND, denies orthopnea, no leg swelling, no pedal swelling, no ankle swelling, no chest pain, no palpitations, no nausea,no vomiting ,no diarrhea. preliminary workup was significant for a creatinine of 2.2, BUN 41. Patient was evaluated in the emergency room was ruled out for pulmonary embolism with a negative CT angiogram of the chest however once the patient stood up became dizzy he became tachycardic and hypoxic. Patient has been placed in observation for further evaluation management and treatment. EXAMINATION: CT brain wo con DATE: 07/10/2024 17:17 INDICATION: dizziness . TECHNIQUE: Computed tomography (CT) of the head was performed without intravenous contrast. The mA was adjusted according to patient size. Iterative reconstruction technique was employed. The dose-length product was 605.33 mGy- cm. COMPARISON: 11/05/2022. FINDINGS: No acute intracranial hemorrhage or extra-axial fluid collection. No hydrocephalus, mass, or herniation. No acute ischemic infarct. Unremarkable dural venous sinus attenuation. No acute osseous abnormality. Small retention cyst/polyp in the left sphenoid sinus, the remaining aerated spaces are clear. Mild atrophy and chronic white matter change. Atherosclerotic intracranial calcification. IMPRESSION: No acute intracranial process. EXAMINATION: XR chest 2V Exam Date/Time: 07/10/2024 17:00 MANAGEMENT REP HISTORY: dizziness, weakness X 2-3 WEEKS Comparison: 07/06/2024. RESULT: Lines, tubes, and devices: None. Lungs and pleura: Clear. Cardiomediastinal silhouette: Dilated central pulmonary arteries. Other: No acute osseous or upper abdominal finding. IMPRESSION: No acute cardiopulmonary process. EXAMINATION: CTA chest PE protocol DATE: 07/10/2024 19:07 INDICATION: hypoxia and tachycardia TECHNIQUE: Computed tomography angiography (CTA) of the chest was performed with 100 mL Omnipaque-350 intravenous contrast timed to evaluate the pulmonary arteries. Coronal maximum intensity projection 3D-reconstructions were created by the technologist. The dose-length product (DLP) was 304.08 mGy-cm. Automated exposure control and iterative reconstruction technique were employed. COMPARISON: X-ray chest, same date; CTPA 11/01/2021. FINDINGS: Lung parenchyma and airways: Clear. Calcified granulomas. Pleura: Unremarkable. Thoracic inlet, axillae and chest wall: 1.7 cm partially calcified right thyroid nodule. Thoracic aorta: No significant dilation. No dissection. Moderate atherosclerotic calcification. Mediastinum: Dilated central pulmonary arteries as can be seen with pulmonary arterial hypertension. Heart and pericardium: Mild cardiomegaly. Coronary artery calcifications: Mild. Upper abdomen: No significant finding. Bones: No acute osseous finding. Pulmonary arteries: Study quality: Adequate. No pulmonary emboli detected. IMPRESSION: No CT evidence of acute pulmonary embolus. No acute process detected in the chest. Review of Systems Review of Systems: lightheadedness, shortness of breath PMFSH Past Medical History Medical History (Updated 07/10/24 @ 20:33 by Frida Chavez PA-C) 1st MTP arthritis Adenomatous colon polyp Anemia Arthritis BMI 25.0-25.9,adult BMI 25.0-25.9,adult BMI 26.0-26.9,adult BMI 26.0-26.9,adult BMI 27.0-27.9,adult BMI between 19-24,adult CAD (coronary artery disease) Carotid stenosis, asymptomatic h/o intracranial cerebral stenosis, evaluated at [place] 05/2019, thought not to be symptomatic cont med tx. Carpal tunnel syndrome on both sides Cerebrovascular disease Chills Chronic pain Collagenous colitis Colonoscopy planned Depression Diabetic polyneuropathy Dysphagia Fever GERD (gastroesophageal reflux disease) Glaucoma Gout (~08/2019) Groin discomfort Heart disease High cholesterol History of blood clots History of prostate cancer HLD (hyperlipidemia) HTN (hypertension) Hyponatremia Left shoulder pain Light headedness Lumbar spine pain Microscopic colitis Overweight Personal history of DVT (deep vein thrombosis) Prostate cancer Right shoulder pain Shortness of breath SOB (shortness of breath) Spasmodic bladder Stenosis of infrarenal abdominal aorta due to arteriosclerosis Says his aorta is mildly enlarged Tendinitis of both rotator cuffs Trochanteric bursitis, left hip Trochanteric bursitis, right hip Type 2 diabetes mellitus without complications Wears glasses Surgical History Surgical History H/O cardiac catheterization H/O carotid endarterectomy (~10/2022) H/O cystoscopy H/O heart artery stent H/O rectal polypectomy History of angioplasty History of cataract surgery History of colonoscopy 2019 History of prostatectomy Had prostate cancer, status post prostatectomy and later radiation therapy. Has an implanted device to help with urinary incontinence. History of rotator cuff surgery Hx of endarterectomy S/P arthroscopic surgery of left knee Family History Family History Father , of lung cancer age 83 Hypertension Lung cancer Sibling Hypertension Mother Family history of malignant neoplasm of breast in first degree relative Breast cancer of breast cancer age 37 Sibling No problems noted. Other Diabetes mellitus Family history of cardiovascular disease Family history of elevated blood lipids Family history of malignant neoplasm Social History Social History Social History: The patient has 2 sons and is . He does not have a durable power senior trial attorney. Wishes to be a full code. 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 Smoking packs per day: 1 Smoking cigarettes per day: 20.0 Years smoked: 15 Smoking pack-years: 15.00 Smoking status: Former smoker Tobacco type: cigarettes Second hand tobacco smoke exposure: No Smoking end date: 08/31/82 Alcohol intake: current Drinks per week: 14 Substance use: former Substance use type: marijuana Other substance usage details: no beer in over a week; no marijuana in 9 months Do You Feel Safe in your Home?: Yes Lack of Transportation: No Lack of Food: Never True Current Housing: I Have Housing Concerned About Future Housing: No Difficulty Paying Gas/Electric Bills: No Difficulty Paying for Meds: No Currently Unemployed: No Education: Trade/Vocational Certificate Difficulty w/ Childcare or Family Care: No Living arrangements: alone Occupation/Education: retired Additional occupation/education comments: 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 Gender identity (if verbalized by the patient): Male Spiritual care concerns: No Agree to blood products: Yes Meds Home Medications and Allergies Home Medications Medication Instructions Recorded Confirmed Type nitroglycerin 0.3 mg sublingual 0.3 mg sublingual PRN PRN Chest 12/05/21 07/10/24 History tablet Pain ticagrelor 60 mg tablet (Brilinta) 60 mg PO BID 12/05/21 07/10/24 History aspirin 81 mg tablet,delayed 81 mg PO DAILY 12/06/21 07/10/24 History release (Adult Aspirin Regimen) chlorthalidone 25 mg tablet 25 mg PO DAILY 04/16/23 07/10/24 History blood sugar diagnostic (Accu-Chek #400 ea 07/01/23 07/10/24 Rx Aaliyah Plus test strips) rosuvastatin 40 mg tablet 40 mg PO DAILY 10/13/23 07/10/24 History alprazolam 0.5 mg tablet 0.5 mg PO TID PRN Anxiety #20 tabs 03/10/24 07/10/24 Rx nortriptyline 25 mg capsule 25 mg PO QHS #90 caps 03/15/24 07/10/24 Rx finerenone 10 mg tablet (Kerendia) 10 mg PO DAILY #30 tabs 05/10/24 07/10/24 Rx telmisartan 80 mg tablet 80 mg PO DAILY 06/08/24 07/10/24 History allopurinol 300 mg tablet 300 mg PO DAILY #90 tabs 06/15/24 07/10/24 Rx pantoprazole 40 mg tablet,delayed 40 mg PO DAILY #90 tabs 06/26/24 07/10/24 Rx release famotidine 20 mg tablet 20 mg PO DAILY 07/06/24 07/10/24 History pentoxifylline 400 mg 400 mg PO TID 07/06/24 07/10/24 History tablet,extended release Allergies Allergy/AdvReac Type Severity Reaction Status Date / Time dapagliflozin [From Farxiga] AdvReac Severe Hallucinati Verified 07/10/24 20:42 ng metformin AdvReac Severe Diarrhea Verified 07/10/24 20:42 semaglutide [From Ozempic] AdvReac Intermediate Confusion Verified 07/10/24 20:42 Vital Signs Vital Signs - 24 hr 07/10/24 16:34 07/10/24 16:43 07/10/24 16:48 Temperature 97.4 F L Pulse Rate 106 H 112 H 127 H Respiratory Rate 17 19 Blood Pressure 131/66 131/66 104/59 L Pulse Oximetry 100 93 07/10/24 17:20 07/10/24 17:37 07/10/24 17:48 Temperature Pulse Rate 108 H 107 H 109 H Respiratory Rate 24 H 19 18 Blood Pressure Pulse Oximetry 100 100 07/10/24 18:02 Temperature Pulse Rate 113 H Respiratory Rate 20 Blood Pressure Pulse Oximetry 100 Exam Narrative: laying in a stretcher Const: General: cooperative, comfortable, no acute distress, well developed, alert, awake, ill appearing chronically and average body habitus Nutritional Appearance: average body habitus Orientation/consciousness: patient oriented x3 HENMT: Head: normal to inspection, normocephalic and atraumatic Ears: hearing grossly normal bilaterally Face/Nose/Sinus: normal facial exam Face and sinus: normal facial exam Eyes: General: appearance normal, both eyes and all related structures Pupils: Equal, round and reactive pupils present EOM: EOMs intact bilaterally Neck: Neck: full ROM, no lymphadenopathy and no JVD Thyroid: thyroid normal Lymphatic: no lymphadenopathy noted Resp: Effort & Inspection: normal respiratory effort and able to speak in complete sentences Auscultation: clear to auscultation bilaterally Cardio: Jugular venous distension: no JVD Rate: regular rate Rhythm: regular rhythm Heart sounds: S1 normal heart sound present and S2 normal heart sound present GI: Inspection: obesity GI Palp: Yes Soft to palpation and Yes No hepatosplenomegaly present : General: Yes deferred Skin: Rashes: no rashes Wounds: no wounds Neuro: General: patient oriented x3 and CN's II-XI intact bilaterally Cranial nerves: Yes CN's II-XII intact bilaterally and Yes Equal, round and reactive pupils present Cognition (Neuro): normal cognition Speech: normal speech Gait exam (Neuro): Normal gait present Motor exam (neuro): 5/5 motor strength present throughout Extrem: General: normal to inspection, full ROM, no joint enlargement and no pedal edema H&P: Results Labs Labs: Short CBC 07/10/24 Range/Units 16:40 WBC 10.5 H (4.5-10.0) K/mm3 Hgb 12.6 L (14.0-18.0) g/dL Hct 36.9 L (42.0-52.0) % Plt Count 212 (150-375) k/mm3 [facility] [place]/10/24 16:40 Sodium 134 L Potassium 3.5 Chloride 97 L Carbon Dioxide 26 BUN 41 H Creatinine 2.20 H Glucose 186 H Calcium 10.2 Liver Function 07/10/24 Range/Units 16:40 Total Bilirubin 0.4 (0.2-1.3) mg/dL AST 34 (17-59) U/L ALT 25 (6-50) U/L Alkaline Phosphatase 100 (38-126) U/L Albumin 4.3 (3.5-5.1) g/dL Urine 07/10/24 Range/Units 16:44 Urine Color Yellow (Yellow) Urine Appearance Clear (Clear) Urine pH 6.5 (5.0-9.0) Ur Specific [place] 1.014 (1.001-1.035) Urine Protein 2+ H (Negative) mg/dL Urine Glucose (UA) Negative (Negative) mg/dL Assessment and Plan Assessment and plan (1) Light-headedness: Code(s): R42 - Dizziness and giddiness Status: Acute (2) Exertional dyspnea: Code(s): R06.09 - Other forms of dyspnea Status: Acute (3) Diabetic polyneuropathy: Code(s): E11.42 - Type 2 diabetes mellitus with diabetic polyneuropathy Status: Acute (4) Spinal stenosis, lumbar region with neurogenic claudication: Code(s): M48.062 - Spinal stenosis, lumbar region with neurogenic claudication Status: Acute (5) Peripheral vascular disease, unspecified: Code(s): I73.9 - Peripheral vascular disease, unspecified Status: Chronic (6) Gout: Onset Date: ~08/2019 Qualifiers: Chronicity: chronic Gout etiology: idiopathic Gout site: multiple sites Presence of tophus: without tophus Qualified Code(s): M1A.09X0 - Idiopathic chronic gout, multiple sites, without tophus (tophi) Code(s): M10.9 - Gout, unspecified Status: Chronic (7) CAD (coronary artery disease): Qualifiers: Associated angina: without angina Coronary Disease-Associated Artery/Lesion type: [place] artery [place] vs. transplanted heart: [place] heart Qualified Code(s): I25.10 - Atherosclerotic heart disease of [place] coronary artery without angina pectoris Code(s): I25.10 - Atherosclerotic heart disease of [place] coronary artery without angina pectoris Status: Acute (8) GERD (gastroesophageal reflux disease): Code(s): K21.9 - Gastro-esophageal reflux disease without esophagitis Status: Acute (9) Chronic kidney disease, stage 3a: Code(s): N18.31 - Chronic kidney disease, stage 3a Status: Acute Hospitalist MIPS Advance Care Plan I have confirmed that the patient's Advanced Care Plan is present, code status is documented, or surrogate decision maker is listed in patient medical record.: Yes Medication Reconciliation I have utilized all available resources to obtain, update and review the patients current medications (includes all prescriptions, OTC, herbals, cannabis, and nutritional supplements).: Yes
[2024-07-10 23:06] LABS: Glucose Point of Care 156 mg/dl (65-105)
[2024-07-10] MEDS: NORTRIPTYLINE HCL 25 MG CAPSULE PO (23:38)
[2024-07-10] MEDS: ALPRAZolam (*CRX) 0.5 MG TABLET PO (23:38)
[2024-07-10] MEDS: TICAGRELOR 60 MG TABLET PO (23:38)
[2024-07-11] VITALS (11 sets, daily range): BP systolic 100–148; BP diastolic 52–68; PULSE 86–130; RESP 12–22; TEMP 36.2–36.5; O2SAT 96–99
--- NOTE | 2024-07-11 | ECHO_ITS ---
Patient Info Name: Derek Freeman Age: 73 years : 1950 Gender: Male Ht: 66 in Wt: 175 lbs BSA: 1.94 m2 HR: 94 bpm BP: 126 / 55 mmHg Technical Quality: Good Exam Date: 07/11/2024 11:16 AM Exam Location: Echo Lab Patient Status: Inpatient Admit Date: 07/10/2024 Staff Ordering Physician: Alpesh Alan MD Parcel Contractor: Galen Garcia RDCS Attending Provider: Alpesh Alan MD Referring Physician: Waqas MCGHEE; Exam Type: CA echo doppler color flow Study Info Indications R42 - Dizziness and giddiness Complete two-dimensional, color flow and Doppler transthoracic echocardiogram is performed. History/Risk Factors Coronary Artery Disease (CAD) Yes Summary 1. Complete two-dimensional, color flow and Doppler transthoracic echocardiogram is performed. 2. Left ventricular systolic function is normal, estimated at >70%. 3. There is moderately increased left ventricular wall thickness. 4. The left ventricular diastolic function is grade I diastolic dysfunction. 5. There is mild aortic valve sclerosis. 6. There is trace tricuspid valve regurgitation. 7. No pulmonary hypertension, estimated pulmonary arterial systolic pressure is 35 mmHg. Left Ventricle Left ventricular chamber dimension is normal. Left ventricular systolic function is normal, estimated at >70%. There is moderately increased left ventricular wall thickness. Left ventricular septal wall motion is normal. The left ventricular diastolic function is grade I diastolic dysfunction. Right Ventricle Right ventricular chamber dimension is normal. Right ventricular systolic function is normal. Left Atria Left atrial chamber dimension is normal. Right Atria Right atrial chamber dimension is normal. Atrial Septum Intact interatrial septum visualized by color flow imaging. Aortic Valve The aortic valve is trileaflet. There is mild aortic valve sclerosis. There is no aortic valve stenosis. There is no aortic valve regurgitation. Pulmonic Valve The pulmonic valve is normal. There is no pulmonic valve stenosis. There is no pulmonic regurgitation. Mitral Valve The mitral valve has normal leaflets. There is no mitral valve stenosis. There is no mitral valve regurgitation. Tricuspid Valve The tricuspid valve leaflets are normal. There is no significant tricuspid valve stenosis. There is trace tricuspid valve regurgitation. No pulmonary hypertension, estimated pulmonary arterial systolic pressure is 35 mmHg. Pericardium/Pleural The pericardium appears normal. There is no pericardial effusion. Inferior Vena Cava Normal inferior vena cava with >50% collapse upon inspiration consistent with normal right atrial pressure, 5 mmHg. Aorta The aortic root size at the sinus of Valsalva is normal. The prox ascending aorta size is normal. Left Ventricular Outflow Tract Name Value Normal LVOT 2D LVOT Diameter 2.0 cm LVOT Doppler LVOT Peak Gradient 3 mmHg LVOT Mean Gradient 1 mmHg LVOT VTI 18 cm LVOT VTI/AV VTI Ratio 0.8 LVOT Stroke Volume 55 ml LVOT CO 4.7 l/min LVOT CI 2.4 l/min/m2 Mitral Valve Name Value Normal MV Doppler MV Decel [place] 309 cm/s2 MV PHT 56 ms MV Area (PHT) 3.9 cm2 4.0-5.0 MV Diastolic Function MV E Peak Velocity 59 cm/s MV A Peak Velocity 91 cm/s MV E/A 0.7 MV Decel Time 192 ms MV Annular TDI MV E/e' (Septal) 15.8 <=8.0 MV E/e' (Lateral) 11.9 <=8.0 MV E/e' (Average) 13.8 Tricuspid Valve Name Value Normal TV Regurgitation Doppler TR Peak Velocity 274 cm/s TR Peak Gradient 18 mmHg Estimated PAP/RSVP RA Pressure 5 mmHg <=5 PA Systolic Pressure 35 mmHg <36 RV Systolic Pressure 35 mmHg <36 Aortic Valve Name Value Normal AV Doppler AV Peak Velocity 109 cm/s AV Peak Gradient 5 mmHg AV Mean Gradient 2 mmHg AV VTI 22 cm AV Area (Cont Eq VTI) 2.5 cm2 >=3.0 AV Area (Cont Eq [place]) 2.3 cm2 AV Regurgitation 2D LVOT Area 3.1 cm2 Ventricles Name Value Normal LV Dimensions 2D/MM IVS Diastolic Thickness (2D) 1.5 cm 0.6-1.0 LVID Diastole (2D) 3.3 cm 4.2-5.8 LVIW Diastolic Thickness (2D) 1.5 cm 0.6-1.0 LVID Systole (2D) 2.1 cm 2.5-4.0 LVOT Diameter 2.0 cm LV Mass (2D Cubed) 179.04 g 88.00-224.00 LV Mass Index (2D Cubed) 92 g/m2 49-115 Relative Wall Thickness (2D) 0.88 LV Fractional Shortening/Ejection Fraction 2D/MM LV Fractional Shortening (2D) 36 % 25-43 LV EF (2D Teicholz) 67 % 52-72 LV Diastolic Volume (4C MOD) 123 ml LV EF (4C MOD) 72 % LV Diastolic Volume (2C MOD) 62 ml LV EF (2C MOD) 48 % LV Diastolic Volume (BP MOD) 90 ml 62-150 LV Diastolic Volume Index (BP MOD) 46 ml/m2 34-74 LV Systolic Volume (BP MOD) 33 ml 21-61 LV Systolic Volume Index (BP MOD) 17 ml/m2 11-31 LV EF (BP MOD) 63 % 52-72 LV Diastolic Length (4C) 8.4 cm LV Systolic Length (4C) 6.5 cm LV Stroke Volume (4C MOD) 89 ml Atria Name Value Normal LA Dimensions LA Volume (4C A-L) 34 ml LA Volume (BP A-L) 34 ml RA Dimensions RA Area (4C) 12.3 cm2 <=18.0 EchoPAC Name Value Normal GIANFRANCO AA peak sys SL (AWMA) 9.9 % AAS peak sys SL (AWMA) 5.2 % AI peak sys SL (AWMA) 21.5 % AL peak sys SL (AWMA) 20.5 % peak sys SL (AWMA) 21.0 % AVC (AWMA) 310 ms BA peak sys SL (AWMA) 8.5 % BAS peak sys SL (AWMA) 9.0 % BI peak sys SL (AWMA) 13.5 % BP peak sys SL (AWMA) 19.7 % BS peak sys SL (AWMA) 11.3 % G peak SL(A2C) (AWMA) 11.7 % G peak SL(A4C) (AWMA) 14.1 % G peak SL(APLAX) (AWMA) 13.2 % G peak SL(Avg) (AWMA) 13.0 % MA peak sys SL (AWMA) 6.5 % MAS peak sys SL (AWMA) 11.6 % NH peak sys SL (AWMA) 15.8 % ML peak sys SL (AWMA) 11.0 % MP peak sys SL (AWMA) 25.7 % MS peak sys SL (AWMA) 15.5 % Report Signatures
[2024-07-11 00:01] LABS: Creatinine Urine 45.3 mg/dL
[2024-07-11 00:03] LABS: Sodium Urine Random 97 meq/L
[2024-07-11 07:27] LABS: Glucose Point of Care 111 mg/dl (65-105)
--- NOTE | 2024-07-11 08:43 | ECG_ITS ---
Test Date: 2024-07-11 09:07:26 Measurements Intervals [place] Rate: 92 P: 37 MN: 186 QRS: -2 QRSD: 105 T: 76 QT: 355 QTc: 440 Interpretive Statements SINUS RHYTHM BORDERLINE R WAVE PROGRESSION, ANTERIOR LEADS BORDERLINE ST-T WAVE ABNORMALITY- HIGH LATERAL LEADS BORDERLINE ECG No previous ECG available for comparison Electronically Signed On 07-11-2024 09:17:02 [employer]PER[employer] by Jovanny Mcduffie D.O.
[2024-07-11] MEDS: ROSUVASTATIN 20 MG TABLET 40 MG PO (08:51)
[2024-07-11] MEDS: FAMOTIDINE 20 MG TABLET PO (08:51)
[2024-07-11] MEDS: PENTOXIFYLLINE 400 MG TABCR PO ×3 (08:51→16:56)
[2024-07-11] MEDS: TICAGRELOR 60 MG TABLET PO ×2 (08:51→20:37)
[2024-07-11] MEDS: ASPIRIN 81 MG ENTERIC TABLET PO (08:51)
[2024-07-11] MEDS: PANTOPRAZOLE 40 MG TABLET PO (08:51)
[2024-07-11] MEDS: allopurinoL 300 MG TABLET PO (08:52)
[2024-07-11 09:00] LABS: Basophils Absolute Auto 0.1 K/mm3 (0.0-0.1); Basophils Percent Auto 0.6 % (0.2-1.2); Eosinophils Absolute Auto 0.2 K/mm3 (0-0.3); Hematocrit 36.4 % (42.0-52.0); Hemoglobin 12.3 g/dL (14.0-18.0); Immature Granulocyte Absolute 0.05 K/mm3 (0.00-0.031); Immature Granulocyte Percent A 0.6 % (0-0.5); Lymphocytes Absolute Auto 1.85 K/mm3 (0.9-3.2); Lymphocytes Percent Auto 21.7 % (18.3-44.2); Mean Corpuscular HGB Conc 33.8 g/dl (32-36); Mean Corpuscular Hemoglobin 31.1 pg (26-34); Mean Corpuscular Volume 92.2 fl (80-100); Mean Platelet Volume 10.6 fl (7.4-10.4); Monocytes Absolute Auto 0.7 K/mm3 (0.1-0.6); Monocytes Percent Auto 8.7 % (2.6-8.5); Neutrophils Absolute Auto 5.7 K/mm3 (1.3-6.7); Neutrophils Percent Auto 66.4 % (45.5-73.1); Platelet Count Result 180 k/mm3 (150-375); Red Blood Count 3.95 M/mm3 (4.6-6.20); Red Cell Distribution Width 13.5 % (11.5-14.5); White Blood Count 8.5 K/mm3 (4.5-10.0)
[2024-07-11 09:20] LABS: Alanine Aminotransferase 24 U/L (6-50); Albumin Level 4.1 g/dL (3.5-5.1); Alkaline Phosphatase 101 U/L (38-126); Anion Gap 7 mmol/L (4-12); Aspartate Amino Transferase 29 U/L (17-59); Bilirubin,Total 0.5 mg/dL (0.2-1.3); Blood Urea Nitrogen 31 mg/dL (9-20); Calcium 10.9 mg/dL (8.4-10.2); Carbon Dioxide 28 mmol/L (22-30); Chloride 101 mmol/L (98-107); Estimated CRCL calculation 24 ml/min; Estimated Glomerular Filt Rate 29; Glucose 130 mg/dL (65-110); Magnesium 1.4 mg/dL (1.6-2.3); Potassium 4.1 mmol/L (3.4-5.0); Sodium 136 mmol/L (137-145)
--- NOTE | 2024-07-11 09:35 | P.CONCA_ITS ---
Assessment and Plan Assessment and plan (1) Light-headedness: Code(s): R42 - Dizziness and giddiness Status: Acute Assessment and Plan: His symptoms are most consistent with orthostatic hypotension, and his ort hostatic vital signs are positive with SBP dropping from 131 mmHg to 104 mmHg when transition from sitting to standing. No arrhythmias on telemetry to suggest an arrhythmia as an etiology. * Maintain adequate hydration * DEAN hose * Caution when transitioning from sitting or lying to standing * Can use abdominal binder if still having symptoms with the above interventions (2) Coronary artery disease: Code(s): I25.10 - Atherosclerotic heart disease of [place] coronary artery without angina pectoris Status: Chronic Assessment and Plan: This is stable - he is not reporting any anginal symptoms. Recent stress echocardiogram showed no evidence of ischemia and LVEF was normal. * Continue ASA, Brilinta 60mg b.i.d. (per [facility]) * Continue statin * Risk factor modification for CAD (3) Hypertension: Qualifiers: Hypertension type: primary hypertension Qualified Code(s): I10 - Essential (primary) hypertension Code(s): I10 - Essential (primary) hypertension Status: Acute Assessment and Plan: We may have to accept blood pressures slightly above goal in order to decrease orthostatic symptoms. (4) JOEY (acute kidney injury): Code(s): N17.9 - Acute kidney failure, unspecified Status: Acute Assessment and Plan: BUN/SCr 41/2.2 on admission. In October of this year his SCr was 1.3 and it has gradually increased. He has been given IV fluids. Avoid nephrotoxic agents. Further workup and management per primary team. Plan He can be discharged from a cardiac perspective. He has follow up at [facility] on 08/02/24. History of Present Illness History of Present Illness Consult date/time: 07/11/24 09:35 Requesting physician: Alpesh Alan MD Consult reason: Other (dizziness) Reason For Visit: Exertional dyspnea Narrative: Mitchell Freeman is a 73 year old male with coronary artery disease with PCI to the LCx/RICHARD x 1 in 2017, peripheral arterial disease, hypertension, hyperlipidemia, type 2 diabetes mellitus. He receives his cardiac care at [facility] and has been seen by Antonette Owens NP most recently and was doing well overall at that time. He comes to the hospital with a chief complaint of dizziness. He reports feeling dizzy and light headed when he stands up from a sitting or lying position. He has not had syncope. He also feels his heart racing after he sits down sometimes. He is not having any chest pain, shortness of breath, swelling, orthopnea. He feels well otherwise and does not have any other complaints. Review of Systems Review of Systems: All systems reviewed & are unremarkable except as noted in HPI and below [facility] Past Medical History Medical History 1st MTP arthritis Adenomatous colon polyp Anemia Arthritis BMI 25.0-25.9,adult BMI 25.0-25.9,adult BMI 26.0-26.9,adult BMI 26.0-26.9,adult BMI 27.0-27.9,adult BMI between 19-24,adult CAD (coronary artery disease) Carotid stenosis, asymptomatic h/o intracranial cerebral stenosis, evaluated at [facility] 05/2019, thought not to be symptomatic cont med tx. Carpal tunnel syndrome on both sides Cerebrovascular disease Chills Chronic pain Collagenous colitis Colonoscopy planned Depression Diabetic polyneuropathy Dysphagia Fever GERD (gastroesophageal reflux disease) Glaucoma Gout (~08/2019) Groin discomfort Heart disease High cholesterol History of blood clots History of prostate cancer HLD (hyperlipidemia) HTN (hypertension) Hyponatremia Left shoulder pain Light headedness Lumbar spine pain Microscopic colitis Overweight Personal history of DVT (deep vein thrombosis) Prostate cancer Right shoulder pain Shortness of breath SOB (shortness of breath) Spasmodic bladder Stenosis of infrarenal abdominal aorta due to arteriosclerosis Says his aorta is mildly enlarged Tendinitis of both rotator cuffs Trochanteric bursitis, left hip Trochanteric bursitis, right hip Type 2 diabetes mellitus without complications Wears glasses Surgical History Surgical History H/O cardiac catheterization H/O carotid endarterectomy (~10/2022) H/O cystoscopy H/O heart artery stent H/O rectal polypectomy History of angioplasty History of cataract surgery History of colonoscopy 2019 History of prostatectomy Had prostate cancer, status post prostatectomy and later radiation therapy. Has an implanted device to help with urinary incontinence. History of rotator cuff surgery Hx of endarterectomy S/P arthroscopic surgery of left knee Family History Family History Father , of lung cancer age 83 Hypertension Lung cancer Sibling Hypertension Mother Family history of malignant neoplasm of breast in first degree relative Breast cancer of breast cancer age 37 Sibling No problems noted. Other Diabetes mellitus Family history of cardiovascular disease Family history of elevated blood lipids Family history of malignant neoplasm Social History Social History Social History: The patient has 2 sons and is . He does not have a durable power deputy prosecuting attorney. Wishes to be a full code. 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 Smoking packs per day: 1 Smoking cigarettes per day: 20.0 Years smoked: 15 Smoking pack-years: 15.00 Smoking status: Former smoker Tobacco type: cigarettes Second hand tobacco smoke exposure: No Smoking end date: 08/31/82 Alcohol intake: current Drinks per week: 14 Substance use: former Substance use type: marijuana Other substance usage details: no beer in over a week; no marijuana in 9 months Do You Feel Safe in your Home?: Yes Lack of Transportation: No Lack of Food: Never True Current Housing: I Have Housing Concerned About Future Housing: No Difficulty Paying Gas/Electric Bills: No Difficulty Paying for Meds: No Currently Unemployed: No Education: Trade/Vocational Certificate Difficulty w/ Childcare or Family Care: No Living arrangements: alone Occupation/Education: retired Additional occupation/education comments: 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 Gender identity (if verbalized by the patient): Male Spiritual care concerns: No Agree to blood products: Yes Meds Home Medications and Allergies Home Medications Medication Instructions Recorded Confirmed Type nitroglycerin 0.3 mg sublingual 0.3 mg sublingual PRN PRN Chest 12/05/21 07/10/24 History tablet Pain ticagrelor 60 mg tablet (Brilinta) 60 mg PO BID 12/05/21 07/10/24 History aspirin 81 mg tablet,delayed 81 mg PO DAILY 12/06/21 07/10/24 History release (Adult Aspirin Regimen) chlorthalidone 25 mg tablet 25 mg PO DAILY 04/16/23 07/10/24 History blood sugar diagnostic (Accu-Chek #400 ea 07/01/23 07/10/24 Rx Aaliyah Plus test strips) rosuvastatin 40 mg tablet 40 mg PO DAILY 10/13/23 07/10/24 History alprazolam 0.5 mg tablet 0.5 mg PO TID PRN Anxiety #20 tabs 03/10/24 07/10/24 Rx nortriptyline 25 mg capsule 25 mg PO QHS #90 caps 03/15/24 07/10/24 Rx finerenone 10 mg tablet (Kerendia) 10 mg PO DAILY #30 tabs 05/10/24 07/10/24 Rx telmisartan 80 mg tablet 80 mg PO DAILY 06/08/24 07/10/24 History allopurinol 300 mg tablet 300 mg PO DAILY #90 tabs 06/15/24 07/10/24 Rx pantoprazole 40 mg tablet,delayed 40 mg PO DAILY #90 tabs 06/26/24 07/10/24 Rx release famotidine 20 mg tablet 20 mg PO DAILY 07/06/24 07/10/24 History pentoxifylline 400 mg 400 mg PO TID 07/06/24 07/10/24 History tablet,extended release calcium carbonate (Tums) 200 mg PO TID PRN heart burn 07/11/24 07/11/24 History Allergies Allergy/AdvReac Type Severity Reaction Status Date / Time dapagliflozin [From Farxiga] AdvReac Severe Hallucinati Verified 07/10/24 20:42 ng metformin AdvReac Severe Diarrhea Verified 07/10/24 20:42 semaglutide [From Ozempic] AdvReac Intermediate Confusion Verified 07/10/24 20:42 Vital Signs Vital Signs - 24 hr 07/10/24 16:34 07/10/24 16:43 07/10/24 16:48 Temperature 36.3 C L Pulse Rate 106 H 112 H 127 H Respiratory Rate 17 19 Blood Pressure 131/66 131/66 104/59 L Pulse Oximetry 100 93 Oxygen Delivery Fraction of Inspired Oxygen 07/10/24 17:20 07/10/24 17:37 07/10/24 17:48 Temperature Pulse Rate 108 H 107 H 109 H Respiratory Rate 24 H 19 18 Blood Pressure Pulse Oximetry 100 100 Oxygen Delivery Fraction of Inspired Oxygen 07/10/24 18:02 07/10/24 19:22 07/10/24 19:30 Temperature Pulse Rate 113 H 100 96 Respiratory Rate 20 11 L 19 Blood Pressure Pulse Oximetry 100 100 96 Oxygen Delivery Fraction of Inspired Oxygen 07/10/24 19:31 07/10/24 20:22 07/10/24 20:34 Temperature Pulse Rate 98 95 100 Respiratory Rate 14 17 16 Blood Pressure 161/66 H 174/73 H Pulse Oximetry 100 95 100 Oxygen Delivery Fraction of Inspired Oxygen 07/10/24 22:26 07/10/24 22:00 07/11/24 00:00 Temperature 36.8 C Pulse Rate 93 105 H Respiratory Rate 14 Blood Pressure 147/56 H Pulse Oximetry 100 Oxygen Delivery Room Air Fraction of Inspired Oxygen 07/11/24 04:00 07/11/24 06:00 07/11/24 08:41 Temperature 36.2 C L Pulse Rate 89 91 Respiratory Rate 12 Blood Pressure 126/55 L Pulse Oximetry 99 99 Oxygen Delivery Room Air Fraction of Inspired Oxygen 21 Exam Const: General: comfortable, no acute distress, alert and awake Orientation/consciousness: patient oriented x3 HENMT: Head: normal to inspection Eyes: General: appearance normal, both eyes and all related structures Pupils: Equal, round and reactive pupils present Neck: Neck: normal visual inspection, supple and no JVD Carotids: normal carotid upstroke Resp: Effort & Inspection: normal respiratory effort Auscultation: clear to auscultation bilaterally Cardio: Rate: regular rate Rhythm: regular rhythm Heart sounds: S1 normal heart sound present, S2 normal heart sound present and no murmurs GI: Auscultation: normal bowel sounds Skin: General skin exam: normal color Neuro: General: patient oriented x3 Cranial nerves: Yes Equal, round and reactive pupils present Extrem: General: normal to inspection Psych: Appearance: grossly normal Mental Status: mental status grossly normal Results Labs and Meds 07/11/24 08:53 07/11/24 08:53 Lab results: Cardiac Enzymes 07/10/24 07/11/24 Range/Units 16:40 08:53 AST 34 29 (17-59) U/L CBC 07/10/24 07/11/24 Range/Units 16:40 08:53 WBC 10.5 H 8.5 (4.5-10.0) K/mm3 RBC 4.07 L 3.95 L (4.6-6.20) M/mm3 Hgb 12.6 L 12.3 L (14.0-18.0) g/dL Hct 36.9 L 36.4 L (42.0-52.0) % Plt Count 212 180 (150-375) k/mm3 Lymph # (Auto) 2.30 1.85 (0.9-3.2) K/mm3 [place] # (Auto) 0.9 H 0.7 H (0.1-0.6) K/mm3 Eos # (Auto) 0.2 0.2 (0-0.3) K/mm3 Baso # (Auto) 0.1 0.1 (0.0-0.1) K/mm3 Comprehensive Metabolic Panel 07/10/24 07/11/24 Range/Units 16:40 08:53 Sodium 134 L 136 L (137-145) mmol/L Potassium 3.5 4.1 (3.4-5.0) mmol/L Chloride 97 L 101 (98-107) mmol/L Carbon Dioxide 26 28 (22-30) mmol/L BUN 41 H 31 H D (9-20) mg/dL Creatinine 2.20 H 2.20 H (0.7-1.3) mg/dL Glucose 186 H 130 H (65-110) mg/dL Calcium 10.2 10.9 H (8.4-10.2) mg/dL AST 34 29 (17-59) U/L ALT 25 24 (6-50) U/L Alkaline Phosphatase 100 101 (38-126) U/L Total Protein 8.0 8.0 (6.3-8.2) g/dL Albumin 4.3 4.1 (3.5-5.1) g/dL Intake and Output 07/10/24 07/11/24 07/11/24 23:59 07:59 15:59 Intake Total 1500 0 118 Balance 1500 0 118 Intake: IV 1500 Sodium Chloride 0.9% IV 1,000 1000 ml @ 999 mls/hr IV CONT .Q1H1M STA Rx#:[id number] Sodium Chloride 0.9% IV 500 ml 500 @ 999 mls/hr IV CONT .Q31M STA Rx#:[id number] Oral 0 118 Other: # Unmeasured Voids 1
[2024-07-11] MEDS: MAGNESIUM SULF 2 GM/WATER 50ML 2 GM/50 ML BAG IVPB (09:58)
--- NOTE | 2024-07-11 11:00 | P.PNIM_ITS ---
Progress Note: A&P Assessment and Plan (1) Light-headedness: Code(s): R42 - Dizziness and giddiness Status: Acute Assessment and Plan: * Orthostatic blood pressure daily * His symptoms are most consistent with orthostatic hypotension, and his orthostatic vital signs are positive with SBP dropping from 131 mmHg to 104 mmHg when transition from sitting to standing. No arrhythmias on telemetry to suggest an arrhythmia as an etiology. * Maintain adequate hydration * DEAN hose * Caution when transitioning from sitting or lying to standing * Can use abdominal binder if still having symptoms with the above interventions (2) Exertional dyspnea: Code(s): R06.09 - Other forms of dyspnea Status: Acute Assessment and Plan: * monitor symptoms (3) CAD (coronary artery disease): Qualifiers: Associated angina: without angina Coronary Disease-Associated Artery/Lesion type: [place] artery [place] vs. transplanted heart: [place] heart Qualified Code(s): I25.10 - Atherosclerotic heart disease of [place] coronary artery without angina pectoris Code(s): I25.10 - Atherosclerotic heart disease of [place] coronary artery without angina pectoris Status: Acute Assessment and Plan: * Recent stress echocardiogram showed no evidence of ischemia and LVEF was normal. * Continue ASA, Brilinta 60mg b.i.d. (per [place] [facility]) * Continue statin * Risk factor modification for CAD (4) JOEY (acute kidney injury): Code(s): N17.9 - Acute kidney failure, unspecified Status: Acute Assessment and Plan: * In October of this year his SCr was 1.3 and it has gradually increased. * 07/11/24: BUN 31, Creatinine 2.20, and GFR 29. * 07/10/24: BUN 41, Creatinine 2.30, and GFR 28. * Encourage hydration. (5) Chronic kidney disease, stage 3a: Code(s): N18.31 - Chronic kidney disease, stage 3a Status: Acute Assessment and Plan: * 07/11/24: BUN 31, Creatinine 2.20, and GFR 29. * 07/10/24: BUN 41, Creatinine 2.30, and GFR 28. * Encourage hydration. (6) Hypomagnesemia: Code(s): E83.42 - Hypomagnesemia Status: Acute Assessment and Plan: * Magnesium 1.4 * Add Magnesium Sulfate 2 gm IVPB x1. (7) GERD (gastroesophageal reflux disease): Code(s): K21.9 - Gastro-esophageal reflux disease without esophagitis Status: Acute Assessment and Plan: * Pantoprazole 40 mg PO daily. Subjective Date/time seen: 07/11/24 11:00 Review of Systems Review of Systems: All systems reviewed & are unremarkable except as noted in HPI and below Exam Const: General: comfortable and no acute distress Resp: Effort & Inspection: normal respiratory effort Auscultation: clear to auscultation bilaterally Cardio: Rate: regular rate Rhythm: regular rhythm GI: GI Palp: Yes Soft to palpation Auscultation: normal bowel sounds Skin: General skin exam: no rashes or lesions noted Neuro: Speech: normal speech Extrem: General: normal to inspection Psych: Mental Status: mental status grossly normal Affect: normal affect Objective Data Vital Signs Vital Signs: Vital Signs - 24 hr 07/10/24 16:34 07/10/24 16:43 07/10/24 16:48 Temperature 97.4 F L Pulse Rate 106 H 112 H 127 H Respiratory Rate 17 19 Blood Pressure 131/66 131/66 104/59 L Pulse Oximetry 100 93 Oxygen Delivery Fraction of Inspired Oxygen 07/10/24 17:20 07/10/24 17:37 07/10/24 17:48 Temperature Pulse Rate 108 H 107 H 109 H Respiratory Rate 24 H 19 18 Blood Pressure Pulse Oximetry 100 100 Oxygen Delivery Fraction of Inspired Oxygen 07/10/24 18:02 07/10/24 19:22 07/10/24 19:30 Temperature Pulse Rate 113 H 100 96 Respiratory Rate 20 11 L 19 Blood Pressure Pulse Oximetry 100 100 96 Oxygen Delivery Fraction of Inspired Oxygen 07/10/24 19:31 07/10/24 20:22 07/10/24 20:34 Temperature Pulse Rate 98 95 100 Respiratory Rate 14 17 16 Blood Pressure 161/66 H 174/73 H Pulse Oximetry 100 95 100 Oxygen Delivery Fraction of Inspired Oxygen 07/10/24 22:26 07/10/24 22:00 07/11/24 00:00 Temperature 98.3 F Pulse Rate 93 105 H Respiratory Rate 14 Blood Pressure 147/56 H Pulse Oximetry 100 Oxygen Delivery Room Air Fraction of Inspired Oxygen 07/11/24 04:00 07/11/24 06:00 07/11/24 08:41 Temperature 97.2 F L Pulse Rate 89 91 Respiratory Rate 12 Blood Pressure 126/55 L Pulse Oximetry 99 99 Oxygen Delivery Room Air Fraction of Inspired Oxygen 21 Intake/Output Intake/Output: Intake & Output 07/08/24 07/09/24 07/10/24 07/11/24 23:59 23:59 23:59 23:59 Intake Total 1500 118 Output Total 200 Balance 1500 -82 Meds/Results Medications: Active Medications Generic Name Dose Route Start Last Admin Trade Name Freq PRN Reason Stop Dose Admin Allopurinol 300 mg 07/11/24 09:00 07/11/24 08:52 Allopurinol 300 Mg Tablet PO 300 mg DAILY CLARISSA Administration Alprazolam 0.5 mg 07/10/24 22:47 07/10/24 23:38 Alprazolam (*Crx) 0.5 Mg Tablet PO 0.5 mg TID PRN Administration Anxiety Aspirin 81 mg 07/11/24 09:00 07/11/24 08:51 Aspirin 81 Mg Enteric Tablet PO 81 mg DAILY CLARISSA Administration Famotidine 20 mg 07/11/24 09:00 07/11/24 08:51 Famotidine 20 Mg Tablet PO 20 mg DAILY CLARISSA Administration Magnesium Sulfate 2 gm in 50 mls @ 25 mls/hr 07/11/24 09:31 07/11/24 09:58 Magnesium Sulf 2 Gm/Water 50ml IVPB 07/11/24 11:30 25 mls/hr ONCE ONE Administration Miscellaneous Information 0 each 07/10/24 00:01 07/11/24 00:26 Kerendia = Nonformulary. Can Pt Use From Home? XX 08/09/24 00:00 Not Given CL[facility]IFY [facility] Miscellaneous Information 0 each 07/10/24 00:01 07/11/24 00:26 Ntg 0.3mg Tabs = Nonformulary. We Stock 0.4mg Tabs XX 08/09/24 00:00 Not Given CLARIFY CLARISSA Non-Formulary Medication 10 mg 07/11/24 09:00 Finerenone [Kerendia] PO 08/10/24 08:59 DAILY CLARISSA Non-Formulary Medication 0.3 mg 07/10/24 22:47 Nitroglycerin SUBLINGUAL PRN PRN Chest Pain Nortriptyline HCl 25 mg 07/10/24 21:00 07/10/24 23:38 Nortriptyline Hcl 25 Mg Capsule PO 25 mg QHS CLARISSA Administration Pantoprazole Sodium 40 mg 07/11/24 09:00 07/11/24 08:51 Pantoprazole 40 Mg Tablet PO 40 mg DAILY CLARISSA Administration Pentoxifylline 400 mg 07/11/24 09:00 07/11/24 08:51 Pentoxifylline 400 Mg Tabcr PO 400 mg TID CLARISSA Administration Perflutren Lipid Microsphere 0 ml 07/10/24 22:57 Perflutren Lipid Microspheres 1.5 Ml Vial Diluted To 10 Ml Total Volume IV PUSH 07/13/24 22:57 ONCE PRN adequate visualization Protocol Rosuvastatin Calcium 40 mg 07/11/24 09:00 07/11/24 08:51 Rosuvastatin 20 Mg Tablet PO 40 mg DAILY CLARISSA Administration Ticagrelor 60 mg 07/10/24 21:00 07/11/24 08:51 Ticagrelor 60 Mg Tablet PO 60 mg Q12HR CLARISSA Administration Radiology Results: ITS Impressions Head CT 07/10/24 17:22 IMPRESSION: No acute intracranial process. Chest X-Ray 07/10/24 17:51 IMPRESSION: No acute cardiopulmonary process. Chest CTA 07/10/24 19:38 IMPRESSION: No CT evidence of acute pulmonary embolus. No acute process detected in the chest. ADDENDUM: 07/10/24 1950 1.7 cm right thyroid nodule, consider nonemergent outpatient thyroid ultrasound for further evaluation. Renal Ultrasound 07/11/24 08:35 IMPRESSION: Bilateral lobation is noted. Diverticulum to the left side of the urinary bladder. Labs Labs: Laboratory Results - last 24 hr 07/10/24 07/10/24 07/10/24 16:40 16:44 23:04 WBC 10.5 H RBC 4.07 L Hgb 12.6 L Hct 36.9 L MCV 90.7 MCH 31.0 MCHC 34.1 RDW 13.5 Plt Count 212 MPV 10.9 H Immature Gran % (Auto) 0.5 Neut % (Auto) 66.7 Lymph % (Auto) 22.0 [place] % (Auto) 8.5 Eos % (Auto) 1.7 Baso % (Auto) 0.6 Lymph # (Auto) 2.30 [place] # (Auto) 0.9 H Eos # (Auto) 0.2 Baso # (Auto) 0.1 Abs Immat Gran (auto) 0.05 H Absolute Neuts (auto) 7.0 H Absolute Nucleated RBC 0.000 Nucleated RBC % 0.0 Sodium 134 L Potassium 3.5 Chloride 97 L Carbon Dioxide 26 Anion Gap 11 BUN 41 H Creatinine 2.20 H Estim Creat Clear Calc 24 Estimated GFR 29 L Glucose 186 H POC Capillary Glucose 156 H Calcium 10.2 Magnesium Total Bilirubin 0.4 AST 34 ALT 25 Alkaline Phosphatase 100 Total Protein 8.0 Albumin 4.3 Urine Color Yellow Urine Appearance Clear Urine pH 6.5 Ur Specific [place] 1.014 Urine Protein 2+ H Urine Glucose (UA) Negative Urine Ketones Negative Ur Blood (Man) 2+ H Urine Nitrate Negative Urine Bilirubin Negative Urine Urobilinogen 1.0 Add Ur Microanalysis Reviewed Leukocyte Esterase Rfl Negative Urine RBC 0-2 Urine WBC 0-5 Ur Squamous Epith Cells None seen Urine Bacteria None seen Urine Casts 6-10 Ur Random Sodium Urine Creatinine 07/10/24 07/11/24 07/11/24 23:37 07:24 08:53 WBC 8.5 RBC 3.95 L Hgb 12.3 L Hct 36.4 L MCV 92.2 MCH 31.1 MCHC 33.8 RDW 13.5 Plt Count 180 MPV 10.6 H Immature Gran % (Auto) 0.6 H Neut % (Auto) 66.4 Lymph % (Auto) 21.7 [place] % (Auto) 8.7 H Eos % (Auto) 2.0 Baso % (Auto) 0.6 Lymph # (Auto) 1.85 [place] # (Auto) 0.7 H Eos # (Auto) 0.2 Baso # (Auto) 0.1 Abs Immat Gran (auto) 0.05 H Absolute Neuts (auto) 5.7 Absolute Nucleated RBC 0.000 Nucleated RBC % 0.0 Sodium 136 L Potassium 4.1 Chloride 101 Carbon Dioxide 28 Anion Gap 7 BUN 31 H D Creatinine 2.20 H Estim Creat Clear Calc 24 Estimated GFR 29 L Glucose 130 H POC Capillary Glucose 111 H Calcium 10.9 H Magnesium 1.4 L Total Bilirubin 0.5 AST 29 ALT 24 Alkaline Phosphatase 101 Total Protein 8.0 Albumin 4.1 Urine Color Urine Appearance Urine pH Ur Specific [place] Urine Protein Urine Glucose (UA) Urine Ketones Ur Blood (Man) Urine Nitrate Urine Bilirubin Urine Urobilinogen Add Ur Microanalysis Leukocyte Esterase Rfl Urine RBC Urine WBC Ur Squamous Epith Cells Urine Bacteria Urine Casts Ur Random Sodium 97 Urine Creatinine 45.3 Quality VTE Prophylaxis VTE prophylaxis: mechanical ordered
[2024-07-11 12:04] LABS: Glucose Point of Care 151 mg/dl (65-105)
[2024-07-11 17:37] LABS: Glucose Point of Care 131 mg/dl (65-105)
[2024-07-11 19:42] LABS: Glucose Point of Care 125 mg/dl (65-105)
[2024-07-11] MEDS: NORTRIPTYLINE HCL 25 MG CAPSULE PO (20:37)
[2024-07-11] MEDS: ALPRAZolam (*CRX) 0.5 MG TABLET PO (20:37)
[2024-07-12] VITALS (14 sets, daily range): BP systolic 71–140; BP diastolic 41–72; PULSE 99–135; RESP 13–18; TEMP 36.2–36.6; O2SAT 96–99
[2024-07-12 06:49] LABS: Basophils Absolute Auto 0.1 K/mm3 (0.0-0.1); Basophils Percent Auto 0.7 % (0.2-1.2); Eosinophils Absolute Auto 0.2 K/mm3 (0-0.3); Eosinophils Percent Auto 2.3 % (0-4.4); Hematocrit 37.3 % (42.0-52.0); Hemoglobin 12.5 g/dL (14.0-18.0); Immature Granulocyte Absolute 0.06 K/mm3 (0.00-0.031); Immature Granulocyte Percent A 0.6 % (0-0.5); Lymphocytes Absolute Auto 2.05 K/mm3 (0.9-3.2); Lymphocytes Percent Auto 21.8 % (18.3-44.2); Mean Corpuscular HGB Conc 33.5 g/dl (32-36); Mean Corpuscular Hemoglobin 30.9 pg (26-34); Mean Corpuscular Volume 92.3 fl (80-100); Mean Platelet Volume 10.7 fl (7.4-10.4); Monocytes Absolute Auto 0.8 K/mm3 (0.1-0.6); Monocytes Percent Auto 8.9 % (2.6-8.5); Neutrophils Absolute Auto 6.2 K/mm3 (1.3-6.7); Neutrophils Percent Auto 65.7 % (45.5-73.1); Platelet Count Result 194 k/mm3 (150-375); Red Blood Count 4.04 M/mm3 (4.6-6.20); Red Cell Distribution Width 13.4 % (11.5-14.5); White Blood Count 9.4 K/mm3 (4.5-10.0)
[2024-07-12 06:56] LABS: Alanine Aminotransferase 24 U/L (6-50); Alkaline Phosphatase 111 U/L (38-126); Anion Gap 8 mmol/L (4-12); Aspartate Amino Transferase 29 U/L (17-59); Bilirubin,Total 0.5 mg/dL (0.2-1.3); Blood Urea Nitrogen 30 mg/dL (9-20); Calcium 10.4 mg/dL (8.4-10.2); Carbon Dioxide 27 mmol/L (22-30); Chloride 100 mmol/L (98-107); Estimated CRCL calculation 25 ml/min; Estimated Glomerular Filt Rate 31; Glucose 155 mg/dL (65-110); Magnesium 1.7 mg/dL (1.6-2.3); Potassium 3.7 mmol/L (3.4-5.0); Sodium 135 mmol/L (137-145)
[2024-07-12 07:33] LABS: Glucose Point of Care 118 mg/dl (65-105)
[2024-07-12] MEDS: allopurinoL 300 MG TABLET PO (08:37)
[2024-07-12] MEDS: TICAGRELOR 60 MG TABLET PO ×2 (08:37→20:21)
[2024-07-12] MEDS: FAMOTIDINE 20 MG TABLET PO ×2 (08:38→17:01)
[2024-07-12] MEDS: PENTOXIFYLLINE 400 MG TABCR PO ×3 (08:38→17:01)
[2024-07-12] MEDS: PANTOPRAZOLE 40 MG TABLET PO (08:38)
[2024-07-12] MEDS: ROSUVASTATIN 20 MG TABLET 40 MG PO (08:38)
[2024-07-12] MEDS: ASPIRIN 81 MG ENTERIC TABLET PO (08:38)
--- NOTE | 2024-07-12 10:44 | P.PNIM_ITS ---
Progress Note: A&P Assessment and Plan (1) Light-headedness: Code(s): R42 - Dizziness and giddiness Status: Acute Assessment and Plan: * Orthostatic blood pressure q shift: supine BP 135/58, sitting 126/56, and standing 83/45. * His symptoms are most consistent with orthostatic hypotension, and his orthostatic vital signs are positive with SBP dropping from 126 mmHg to 83 mmHg when transition from sitting to standing. No arrhythmias on telemetry to suggest an arrhythmia as an etiology. * Maintain adequate hydration * DEAN hose and abdominal binder * Caution when transitioning from sitting or lying to standing * NS @ 100 ml/hr x 5 hours * Add Midodrine 2.5 mg PO TID. (2) Exertional dyspnea: Code(s): R06.09 - Other forms of dyspnea Status: Acute Assessment and Plan: * monitor symptoms (3) CAD (coronary artery disease): Qualifiers: Coronary Disease-Associated Artery/Lesion type: [place] artery [place] vs. transplanted heart: [place] heart Associated angina: without angina Qualified Code(s): I25.10 - Atherosclerotic heart disease of [place] coronary artery without angina pectoris Code(s): I25.10 - Atherosclerotic heart disease of [place] coronary artery without angina pectoris Status: Acute Assessment and Plan: * Recent stress echocardiogram showed no evidence of ischemia and LVEF was normal. * Continue ASA, Brilinta 60mg b.i.d. (per [place] [facility]) * Continue statin * Risk factor modification for CAD (4) JOEY (acute kidney injury): Code(s): N17.9 - Acute kidney failure, unspecified Status: Acute Assessment and Plan: * In October of this year his SCr was 1.3 and it has gradually increased. * 07/12/24: BUN 30, Creatinine 2.10, and GFR 31. * 07/11/24: BUN 31, Creatinine 2.20, and GFR 29. * 07/10/24: BUN 41, Creatinine 2.30, and GFR 28. * Encourage hydration. (5) Chronic kidney disease, stage 3a: Code(s): N18.31 - Chronic kidney disease, stage 3a Status: Acute Assessment and Plan: * 07/12/24: BUN 30, Creatinine 2.10, and GFR 31. * 07/11/24: BUN 31, Creatinine 2.20, and GFR 29. * 07/10/24: BUN 41, Creatinine 2.30, and GFR 28. * Encourage hydration. (6) Hypomagnesemia: Code(s): E83.42 - Hypomagnesemia Status: Acute Assessment and Plan: * Magnesium 1.7, improved. (7) GERD (gastroesophageal reflux disease): Code(s): K21.9 - Gastro-esophageal reflux disease without esophagitis Status: Acute Assessment and Plan: * Pantoprazole 40 mg PO daily. Subjective Date/time seen: 07/12/24 10:44 Interval history: Patient reports JARA and dizziness when he gets up. Patient denies chest pain, palpitations, headache, nausea, or vomiting. Review of Systems Review of Systems: All systems reviewed & are unremarkable except as noted in HPI and below Exam Const: General: comfortable and no acute distress Resp: Effort & Inspection: normal respiratory effort Auscultation: clear to auscultation bilaterally Cardio: Rate: regular rate Rhythm: regular rhythm GI: GI Palp: Yes Soft to palpation Auscultation: normal bowel sounds Skin: General skin exam: no rashes or lesions noted Neuro: Speech: normal speech Extrem: General: normal to inspection Psych: Mental Status: mental status grossly normal Affect: normal affect Objective Data Vital Signs Vital Signs: Vital Signs - 24 hr 07/11/24 12:00 07/11/24 14:00 07/11/24 15:49 Temperature 97.7 F Pulse Rate 113 H 108 H 110 H Respiratory Rate 22 H Blood Pressure 115/56 L 136/68 Pulse Oximetry 98 Oxygen Delivery 07/11/24 15:49 07/11/24 15:49 07/11/24 16:00 Temperature Pulse Rate 122 H 130 H 107 H Respiratory Rate Blood Pressure 100/53 L 100/52 L Pulse Oximetry Oxygen Delivery 07/11/24 21:30 07/11/24 20:00 07/11/24 20:00 Temperature 97.1 F L Pulse Rate 108 H 115 H Respiratory Rate 13 Blood Pressure 148/59 H Pulse Oximetry 96 Oxygen Delivery Room Air 07/12/24 00:00 07/12/24 04:00 07/12/24 05:22 Temperature 97.2 F L Pulse Rate 99 100 101 H Respiratory Rate 13 Blood Pressure 120/50 L Pulse Oximetry 96 Oxygen Delivery 07/12/24 08:50 07/12/24 08:53 07/12/24 08:56 Temperature Pulse Rate Respiratory Rate Blood Pressure 135/58 L 126/56 L 83/45 L Pulse Oximetry Oxygen Delivery Intake/Output Intake/Output: Intake & Output 07/09/24 07/10/24 07/11/24 07/12/24 23:59 23:59 23:59 23:59 Intake Total 1500 478 760 Output Total 200 Balance 1500 278 760 Meds/Results Medications: Active Medications Generic Name Dose Route Start Last Admin Trade Name Freq PRN Reason Stop Dose Admin Allopurinol 300 mg 07/11/24 09:00 07/12/24 08:37 Allopurinol 300 Mg Tablet PO 300 mg DAILY CLARISSA Administration Alprazolam 0.5 mg 07/10/24 22:47 07/11/24 20:37 Alprazolam (*Crx) 0.5 Mg Tablet PO 0.5 mg TID PRN Administration Anxiety Aspirin 81 mg 07/11/24 09:00 07/12/24 08:38 Aspirin 81 Mg Enteric Tablet PO 81 mg DAILY CLARISSA Administration Famotidine 20 mg 07/12/24 17:00 Famotidine 20 Mg Tablet PO 1700 [facility] Miscellaneous Information 0 each 07/10/24 00:01 07/11/24 00:26 Kerendia = Nonformulary. Can Pt Use From Home? XX 08/09/24 00:00 Not Given CLARIFY CLARISSA Nitroglycerin 0.4 mg 07/11/24 19:56 Nitroglycerin Sl 0.4 Mg Tablet SUBLINGUAL Q5MIN PRN Chest Pain Nortriptyline HCl 25 mg 07/10/24 21:00 07/11/24 20:37 Nortriptyline Hcl 25 Mg Capsule PO 25 mg QHS CLARISSA Administration Pantoprazole Sodium 40 mg 07/11/24 09:00 07/12/24 08:38 Pantoprazole 40 Mg Tablet PO 40 mg DAILY CLARISSA Administration Pentoxifylline 400 mg 07/11/24 09:00 07/12/24 08:38 Pentoxifylline 400 Mg Tabcr PO 400 mg TID CLARISSA Administration Perflutren Lipid Microsphere 0 ml 07/10/24 22:57 Perflutren Lipid Microspheres 1.5 Ml Vial Diluted To 10 Ml Total Volume IV PUSH 07/13/24 22:57 ONCE PRN adequate visualization Protocol Rosuvastatin Calcium 40 mg 07/11/24 09:00 07/12/24 08:38 Rosuvastatin 20 Mg Tablet PO 40 mg DAILY CLARISSA Administration Ticagrelor 60 mg 07/10/24 21:00 07/12/24 08:37 Ticagrelor 60 Mg Tablet PO 60 mg Q12HR CLARISSA Administration Radiology Results: ITS Impressions Head CT 07/10/24 17:22 IMPRESSION: No acute intracranial process. Chest X-Ray 07/10/24 17:51 IMPRESSION: No acute cardiopulmonary process. Chest CTA 07/10/24 19:38 IMPRESSION: No CT evidence of acute pulmonary embolus. No acute process detected in the chest. ADDENDUM: 07/10/24 1950 1.7 cm right thyroid nodule, consider nonemergent outpatient thyroid ultrasound for further evaluation. Renal Ultrasound 07/11/24 08:35 IMPRESSION: Bilateral lobation is noted. Diverticulum to the left side of the urinary bladder. Labs Labs: Laboratory Results - last 24 hr 07/11/24 07/11/24 07/11/24 11:56 17:28 19:33 WBC RBC Hgb Hct MCV MCH MCHC RDW Plt Count MPV Immature Gran % (Auto) Neut % (Auto) Lymph % (Auto) [place] % (Auto) Eos % (Auto) Baso % (Auto) Lymph # (Auto) [place] # (Auto) Eos # (Auto) Baso # (Auto) Abs Immat Gran (auto) Absolute Neuts (auto) Absolute Nucleated RBC Nucleated RBC % Sodium Potassium Chloride Carbon Dioxide Anion Gap BUN Creatinine Estim Creat Clear Calc Estimated GFR Glucose POC Capillary Glucose 151 H 131 H 125 H Calcium Magnesium Total Bilirubin AST ALT Alkaline Phosphatase Total Protein Albumin 07/12/24 07/12/24 06:21 07:25 WBC 9.4 RBC 4.04 L Hgb 12.5 L Hct 37.3 L MCV 92.3 MCH 30.9 MCHC 33.5 RDW 13.4 Plt Count 194 MPV 10.7 H Immature Gran % (Auto) 0.6 H Neut % (Auto) 65.7 Lymph % (Auto) 21.8 [place] % (Auto) 8.9 H Eos % (Auto) 2.3 Baso % (Auto) 0.7 Lymph # (Auto) 2.05 [place] # (Auto) 0.8 H Eos # (Auto) 0.2 Baso # (Auto) 0.1 Abs Immat Gran (auto) 0.06 H Absolute Neuts (auto) 6.2 Absolute Nucleated RBC 0.000 Nucleated RBC % 0.0 Sodium 135 L Potassium 3.7 Chloride 100 Carbon Dioxide 27 Anion Gap 8 BUN 30 H Creatinine 2.10 H Estim Creat Clear Calc 25 Estimated GFR 31 L Glucose 155 H POC Capillary Glucose 118 H Calcium 10.4 H Magnesium 1.7 Total Bilirubin 0.5 AST 29 ALT 24 Alkaline Phosphatase 111 Total Protein 8.0 Albumin 4.0 Quality VTE Prophylaxis VTE prophylaxis: mechanical ordered
[2024-07-12 11:24] LABS: Glucose Point of Care 153 mg/dl (65-105)
[2024-07-12] MEDS: MIDODRINE HCL 2.5 MG TABLET PO ×2 (12:09→17:01)
[2024-07-12] MEDS: SODIUM CHLORIDE 0.9% IV 250 ML 100 ML IV CONT (12:10)
[2024-07-12] MEDS: ALPRAZolam (*CRX) 0.5 MG TABLET PO ×2 (15:13→20:21)
[2024-07-12 16:22] LABS: Glucose Point of Care 134 mg/dl (65-105)
[2024-07-12] MEDS: DOCUSATE SODIUM 100 MG CAPSULE PO (17:31)
[2024-07-12] MEDS: NORTRIPTYLINE HCL 25 MG CAPSULE PO (20:21)
[2024-07-12 20:32] LABS: Glucose Point of Care 211 mg/dl (65-105)
--- NOTE | 2024-07-12 20:58 | ECG_ITS ---
Test Date: 2024-07-12 21:32:40 Measurements Intervals [place] Rate: 116 P: 32 GA: 176 QRS: -18 QRSD: 105 T: 68 QT: 327 QTc: 455 Interpretive Statements SINUS TACHYCARDIA POSSIBLE ANTERIOR MYOCARDIAL INFARCTION , OF INDETERMINATE AGE BORDERLINE ST-T WAVE ABNORMALITY- HIGH LATERAL LEADS ABNORMAL ECG Compared to ECG 07/11/2024 09:07:26 HEART RATE HAS INCREASED Electronically Signed On 07-13-2024 06:33:35 [employer] by Jovanny Mcduffie D.O.
--- NOTE | 2024-07-12 21:41 | P.PNCROSS_ITS ---
Event Note Event Note Event Note: Called by nursing for patient positive orthostatics with tachycardia while carolynn kaelyn, EKG shows sinus tachycardia, echocardiogram on EF of 70% 07/11/24, per nursing patient got a 250 mls bolus earlier today, will do another 250 mL bolus. Patient's home meds of Coreg and amlodipine are still being held, patient was started on midodrine 2.5 mg 3 times a day earlier today this may need to be increased.
[2024-07-12] MEDS: SODIUM CHLORIDE 0.9% IV 250 ML IV CONT (21:56)
[2024-07-13] VITALS (9 sets, daily range): BP systolic 85–150; BP diastolic 49–76; PULSE 96–133; RESP 12–18; TEMP 35.5–36.9; O2SAT 94–99
[2024-07-13 06:29] LABS: Basophils Absolute Auto 0.1 K/mm3 (0.0-0.1); Basophils Percent Auto 0.7 % (0.2-1.2); Eosinophils Absolute Auto 0.2 K/mm3 (0-0.3); Eosinophils Percent Auto 2.5 % (0-4.4); Hemoglobin 12.5 g/dL (14.0-18.0); Immature Granulocyte Absolute 0.05 K/mm3 (0.00-0.031); Immature Granulocyte Percent A 0.5 % (0-0.5); Lymphocytes Absolute Auto 1.85 K/mm3 (0.9-3.2); Lymphocytes Percent Auto 20.2 % (18.3-44.2); Mean Corpuscular HGB Conc 33.8 g/dl (32-36); Mean Corpuscular Hemoglobin 30.8 pg (26-34); Mean Corpuscular Volume 91.1 fl (80-100); Mean Platelet Volume 10.9 fl (7.4-10.4); Monocytes Absolute Auto 0.8 K/mm3 (0.1-0.6); Monocytes Percent Auto 8.9 % (2.6-8.5); Neutrophils Absolute Auto 6.2 K/mm3 (1.3-6.7); Neutrophils Percent Auto 67.2 % (45.5-73.1); Platelet Count Result 205 k/mm3 (150-375); Red Blood Count 4.06 M/mm3 (4.6-6.20); Red Cell Distribution Width 13.3 % (11.5-14.5); White Blood Count 9.2 K/mm3 (4.5-10.0)
[2024-07-13 06:41] LABS: Alanine Aminotransferase 24 U/L (6-50); Albumin Level 3.9 g/dL (3.5-5.1); Alkaline Phosphatase 107 U/L (38-126); Anion Gap 5 mmol/L (4-12); Aspartate Amino Transferase 29 U/L (17-59); Bilirubin,Total 0.4 mg/dL (0.2-1.3); Blood Urea Nitrogen 27 mg/dL (9-20); Calcium 10.3 mg/dL (8.4-10.2); Carbon Dioxide 27 mmol/L (22-30); Chloride 103 mmol/L (98-107); Estimated CRCL calculation 27 ml/min; Estimated Glomerular Filt Rate 33; Glucose 164 mg/dL (65-110); Magnesium 1.6 mg/dL (1.6-2.3); Potassium 3.5 mmol/L (3.4-5.0); Sodium 135 mmol/L (137-145)
[2024-07-13 08:27] LABS: Glucose Point of Care 131 mg/dl (65-105)
[2024-07-13] MEDS: allopurinoL 300 MG TABLET PO (09:45)
[2024-07-13] MEDS: ROSUVASTATIN 20 MG TABLET 40 MG PO (09:45)
[2024-07-13] MEDS: PENTOXIFYLLINE 400 MG TABCR PO ×3 (09:46→17:07)
[2024-07-13] MEDS: ASPIRIN 81 MG ENTERIC TABLET PO (09:46)
[2024-07-13] MEDS: MIDODRINE HCL 2.5 MG TABLET PO ×3 (09:46→13:16)
[2024-07-13] MEDS: PANTOPRAZOLE 40 MG TABLET PO (09:46)
[2024-07-13] MEDS: TICAGRELOR 60 MG TABLET PO ×2 (09:46→20:36)
--- NOTE | 2024-07-13 10:13 | P.PNIM_ITS ---
Progress Note: A&P Assessment and Plan (1) Light-headedness: Code(s): R42 - Dizziness and giddiness Status: Acute Assessment and Plan: * Orthostatic blood pressure q shift: supine BP 147/68, sitting 112/57, and standing 94/58. * His symptoms are most consistent with orthostatic hypotension, and his orthostatic vital signs are positive. * Maintain adequate hydration * DEAN hose and abdominal binder * Caution when transitioning from sitting or lying to standing * Increase Midodrine 5 mg PO TID. * Cardiology consult (2) Exertional dyspnea: Code(s): R06.09 - Other forms of dyspnea Status: Acute Assessment and Plan: * monitor symptoms (3) CAD (coronary artery disease): Qualifiers: Associated angina: without angina Coronary Disease-Associated Ar maría/Lesion type: [place] artery [place] vs. transplanted heart: [place] heart Qualified Code(s): I25.10 - Atherosclerotic heart disease of [place] coronary artery without angina pectoris Code(s): I25.10 - Atherosclerotic heart disease of [place] coronary artery without angina pectoris Status: Acute Assessment and Plan: * Recent stress echocardiogram showed no evidence of ischemia and LVEF was normal. * Continue ASA, Brilinta 60mg b.i.d. (per [facility]) * Continue statin * Risk factor modification for CAD * Patient had two episodes of 17 beat runs of Vtach. Patient reports feeling heart race during those times. EKG obtained showed HR 104, QTc [address] with QRS changes from narrow complexes to left bundle branch block. * Cardiology saw patient and added Carvedilol 6.25 mg PO BID. * Trop <0.012 (4) JOEY (acute kidney injury): Code(s): N17.9 - Acute kidney failure, unspecified Status: Acute Assessment and Plan: * In October of this year his SCr was 1.3 and it has gradually increased. * 07/13/24: BUN 27, Creatinine 2.00, and GFR 33. * 07/12/24: BUN 30, Creatinine 2.10, and GFR 31. * 07/11/24: BUN 31, Creatinine 2.20, and GFR 29. * 07/10/24: BUN 41, Creatinine 2.30, and GFR 28. * Encourage hydration. (5) Chronic kidney disease, stage 3a: Code(s): N18.31 - Chronic kidney disease, stage 3a Status: Acute Assessment and Plan: * 07/13/24: BUN 27, Creatinine 2.00, and GFR 33. * 07/12/24: BUN 30, Creatinine 2.10, and GFR 31. * 07/11/24: BUN 31, Creatinine 2.20, and GFR 29. * 07/10/24: BUN 41, Creatinine 2.30, and GFR 28. * Encourage hydration. (6) Hypomagnesemia: Code(s): E83.42 - Hypomagnesemia Status: Acute Assessment and Plan: * Magnesium 1.6. * Magnesium Sulfate 2 gm IVPB x 1 given. * Monitor labs. (7) GERD (gastroesophageal reflux disease): Code(s): K21.9 - Gastro-esophageal reflux disease without esophagitis Status: Acute Assessment and Plan: * Pantoprazole 40 mg PO daily. Subjective Date/time seen: 07/13/24 10:13 Interval history: Patient reports feeling dizzy upon standing and shortness of breath with exertion. Patient reports feeling some chest pressure earlier that has subsided. Patient had two episodes of 17 beat runs of Vtach. Patient reports feeling heart race during those times. EKG obtained showed HR 104, QTc [address] ST with QRS changes from narrow complexes to left bundle branch block. Review of Systems Review of Systems: All systems reviewed & are unremarkable except as noted in HPI and below Exam Const: General: no acute distress Resp: Effort & Inspection: normal respiratory effort Auscultation: clear to auscultation bilaterally Cardio: Rate: tachycardic Rhythm: regular rhythm GI: GI Palp: Yes Soft to palpation Auscultation: normal bowel sounds Skin: General skin exam: no rashes or lesions noted Neuro: Speech: normal speech Extrem: General: normal to inspection Psych: Mental Status: mental status grossly normal Affect: normal affect Objective Data Vital Signs Vital Signs: Vital Signs - 24 hr 07/12/24 14:00 07/12/24 12:00 07/12/24 16:00 Temperature 97.5 F L Pulse Rate 112 H 113 H 135 H Respiratory Rate 18 Blood Pressure 115/64 Pulse Oximetry 99 Oxygen Delivery 07/12/24 20:00 07/12/24 20:00 07/12/24 20:17 Temperature 97.8 F 97.8 F Pulse Rate 123 H 123 H Respiratory Rate 18 18 Blood Pressure 140/72 140/72 87/50 L Pulse Oximetry 96 96 Oxygen Delivery 07/12/24 20:18 07/12/24 20:00 07/12/24 20:00 Temperature Pulse Rate 122 H Respiratory Rate Blood Pressure 71/41 L Pulse Oximetry Oxygen Delivery Room Air 07/12/24 21:38 07/13/24 00:00 07/13/24 00:00 Temperature 98.4 F Pulse Rate 117 H 107 H 119 H Respiratory Rate 12 Blood Pressure 121/59 L 107/49 L Pulse Oximetry 96 Oxygen Delivery 07/13/24 04:00 07/13/24 04:00 07/13/24 08:00 Temperature 97.9 F 96 F L Pulse Rate 96 113 H Respiratory Rate 14 Blood Pressure 127/58 L Pulse Oximetry 97 Oxygen Delivery 07/13/24 08:00 Temperature 96.7 F L Pulse Rate 109 H Respiratory Rate 18 Blood Pressure 127/54 L Pulse Oximetry 97 Oxygen Delivery Intake/Output Intake/Output: Intake & Output 07/10/24 07/11/24 07/12/24 07/13/24 23:59 23:59 23:59 23:59 Intake Total 1545 505 9943 540 Output Total 200 350 250 Balance 1535 076 8231 290 Meds/Results Medications: Active Medications Generic Name Dose Route Start Last Admin Trade Name Freq PRN Reason Stop Dose Admin Allopurinol 300 mg 07/11/24 09:00 07/13/24 09:45 Allopurinol 300 Mg Tablet PO 300 mg DAILY CLARISSA Administration Alprazolam 0.5 mg 07/10/24 22:47 07/12/24 20:21 Alprazolam (*Crx) 0.5 Mg Tablet PO 0.5 mg TID PRN Administration Anxiety Aspirin 81 mg 07/11/24 09:00 07/13/24 09:46 Aspirin 81 Mg Enteric Tablet PO 81 mg DAILY CLARISSA Administration Docusate Sodium 100 mg 07/12/24 17:11 07/12/24 17:31 Docusate Sodium 100 Mg Capsule PO 100 mg Q12H PRN Administration Constipation Famotidine 20 mg 07/12/24 17:00 07/12/24 17:01 Famotidine 20 Mg Tablet PO 20 mg 1700 CLARISSA Administration Midodrine 2.5 mg 07/12/24 13:00 07/13/24 09:46 Midodrine Hcl 2.5 Mg Tablet PO 2.5 mg TID CLARISSA Administration Miscellaneous Information 0 each 07/10/24 00:01 07/11/24 00:26 Kerendia = Nonformulary. Can Pt Use From Home? XX 08/09/24 00:00 Not Given CLARIFY CLARISSA Nitroglycerin 0.4 mg 07/11/24 19:56 Nitroglycerin Sl 0.4 Mg Tablet SUBLINGUAL Q5MIN PRN Chest Pain Nortriptyline HCl 25 mg 07/10/24 21:00 07/12/24 20:21 Nortriptyline Hcl 25 Mg Capsule PO 25 mg QHS CLARISSA Administration Pantoprazole Sodium 40 mg 07/11/24 09:00 07/13/24 09:46 Pantoprazole 40 Mg Tablet PO 40 mg DAILY CLARISSA Administration Pentoxifylline 400 mg 07/11/24 09:00 07/13/24 09:46 Pentoxifylline 400 Mg Tabcr PO 400 mg TID CLARISSA Administration Perflutren Lipid Microsphere 0 ml 07/10/24 22:57 Perflutren Lipid Microspheres 1.5 Ml Vial Diluted To 10 Ml Total Volume IV PUSH 07/13/24 22:57 ONCE PRN adequate visualization Protocol Rosuvastatin Calcium 40 mg 07/11/24 09:00 07/13/24 09:45 Rosuvastatin 20 Mg Tablet PO 40 mg DAILY CLARISSA Administration Ticagrelor 60 mg 07/10/24 21:00 07/13/24 09:46 Ticagrelor 60 Mg Tablet PO 60 mg Q12HR CLARISSA Administration Radiology Results: ITS Impressions Head CT 07/10/24 17:22 IMPRESSION: No acute intracranial process. Chest X-Ray 07/10/24 17:51 IMPRESSION: No acute cardiopulmonary process. Chest CTA 07/10/24 19:38 IMPRESSION: No CT evidence of acute pulmonary embolus. No acute process detected in the chest. ADDENDUM: 07/10/24 1950 1.7 cm right thyroid nodule, consider nonemergent outpatient thyroid ultrasound for further evaluation. Renal Ultrasound 07/11/24 08:35 IMPRESSION: Bilateral lobation is noted. Diverticulum to the left side of the urinary bladder. Labs Labs: Laboratory Results - last 24 hr 07/12/24 07/12/24 07/12/24 11:20 16:17 20:28 WBC RBC Hgb Hct MCV MCH MCHC RDW Plt Count MPV Immature Gran % (Auto) Neut % (Auto) Lymph % (Auto) [place] % (Auto) Eos % (Auto) Baso % (Auto) Lymph # (Auto) [place] # (Auto) Eos # (Auto) Baso # (Auto) Abs Immat Gran (auto) Absolute Neuts (auto) Absolute Nucleated RBC Nucleated RBC % Sodium Potassium Chloride Carbon Dioxide Anion Gap BUN Creatinine Estim Creat Clear Calc Estimated GFR Glucose POC Capillary Glucose 153 H 134 H 211 H Calcium Magnesium Total Bilirubin AST ALT Alkaline Phosphatase Total Protein Albumin 07/13/24 07/13/24 06:04 08:24 WBC 9.2 RBC 4.06 L Hgb 12.5 L Hct 37.0 L MCV 91.1 MCH 30.8 MCHC 33.8 RDW 13.3 Plt Count 205 MPV 10.9 H Immature Gran % (Auto) 0.5 Neut % (Auto) 67.2 Lymph % (Auto) 20.2 [place] % (Auto) 8.9 H Eos % (Auto) 2.5 Baso % (Auto) 0.7 Lymph # (Auto) 1.85 [place] # (Auto) 0.8 H Eos # (Auto) 0.2 Baso # (Auto) 0.1 Abs Immat Gran (auto) 0.05 H Absolute Neuts (auto) 6.2 Absolute Nucleated RBC 0.000 Nucleated RBC % 0.0 Sodium 135 L Potassium 3.5 Chloride 103 Carbon Dioxide 27 Anion Gap 5 BUN 27 H Creatinine 2.00 H Estim Creat Clear Calc 27 Estimated GFR 33 L Glucose 164 H POC Capillary Glucose 131 H Calcium 10.3 H Magnesium 1.6 Total Bilirubin 0.4 AST 29 ALT 24 Alkaline Phosphatase 107 Total Protein 7.0 Albumin 3.9 Quality VTE Prophylaxis VTE prophylaxis: mechanical ordered
[2024-07-13 11:05] LABS: Thyroid Stimulating Hormone Reflex 0.453 uIU/mL (0.465-4.68)
[2024-07-13 12:01] LABS: Glucose Point of Care 166 mg/dl (65-105)
[2024-07-13 12:19] LABS: Free T4 Free Thyroxine Reflex 1.27 ng/dL (0.78-2.19)
--- NOTE | 2024-07-13 12:32 | ECG_ITS ---
Test Date: 2024-07-13 12:47:59 Measurements Intervals [place] Rate: 104 P: 26 [place]: 176 QRS: 2 QRSD: 106 T: 116 QT: 338 QTc: 445 Interpretive Statements SINUS TACHYCARDIA QRS CHANGES FROM NARROW COMPLES TO LEFT BUNDLE BRANCH BLOCK ST DEVIATION AND MODERATE T-WAVE ABNORMALITY, CONSIDER ANTEROLAT/HIGH LAT ISCHEMIA ABNORMAL ECG Compared to ECG 07/12/2024 21:32:40 Possible ischemia now present Electronically Signed On 07-13-2024 12:52:21 PRESIDENT & CEO by Jovanny Mcduffie D.O.
[2024-07-13] MEDS: MAGNESIUM SULF 2 GM/WATER 50ML 2 GM/50 ML BAG IVPB (12:57)
[2024-07-13 13:04] LABS: Total Triiodothyronine (T3) 1.28 NG/ML (0.97-1.69)
[2024-07-13 13:43] LABS: Troponin I < 0.012 ng/mL (0.000-0.034)
--- NOTE | 2024-07-13 13:52 | P.PNCA_ITS ---
Progress Note: A&P Assessment and Plan (1) Light-headedness: Code(s): R42 - Dizziness and giddiness Status: Acute Assessment and Plan: His symptoms are most consistent with orthostatic hypotension, and his orth ostatic vital signs are still significantly positive. Midodrine is increased to 5 mg p.o. t.i.d.. Up titrate as need be. Given his hyperdynamic LV, beta- michell is needed * Maintain adequate hydration * DEAN hose * Caution when transitioning from sitting or lying to standing * Can use abdominal binder if still having symptoms with the above interventions (2) Coronary artery disease: Code(s): I25.10 - Atherosclerotic heart disease of [place] coronary artery without angina pectoris Status: Chronic Assessment and Plan: Recent stress echocardiogram showed no evidence of ischemia and LVEF was normal. * Continue ASA, Brilinta 60mg b.i.d. (per [facility]) * Continue statin * Risk factor modification for CAD (3) Hypertension: Qualifiers: Hypertension type: primary hypertension Qualified Code(s): I10 - Essential (primary) hypertension Code(s): I10 - Essential (primary) hypertension Status: Acute Assessment and Plan: We may have to accept blood pressures slightly above goal in order to decrease orthostatic symptoms. (4) JOEY (acute kidney injury): Code(s): N17.9 - Acute kidney failure, unspecified Status: Acute Assessment and Plan: He has been given IV fluids. Avoid nephrotoxic agents. Further workup and management per primary team. (5) Wide-complex tachycardia: Code(s): R00.0 - Tachycardia, unspecified Status: Acute Assessment and Plan: VT versus is rate dependent bundle branch block. Will resume some beta-michell. He does have orthostasis but his tachycardia likely indicate some degree of beta-michell withdrawal also. Will resume some carvedilol at 6.25 mg p.o. b.i.d.. Subjective Date/time seen: 07/13/24 13:52 Interval history: 73-year-old admitted for dizziness Date of service 07/13/2024: Still dizzy upon standing. In further discussion, he is having some occasional chest pain at home which occurs with and without exertion and sometimes improved with nitroglycerin. Review of Systems Review of Systems: All systems reviewed & are unremarkable except as noted in HPI and below Cardiovascular: Cardiovascular: Reports chest pain Respiratory: Respiratory: Denies dyspnea Gastrointestinal: Gastrointestinal: Denies abdominal pain Hematologic/Lymphatic: Hematologic/Lymphatic: Denies easy bleeding Exam Const: General: comfortable, no acute distress, alert and awake Orientation/consciousness: patient oriented x3 HENMT: Head: normal to inspection Eyes: General: appearance normal, both eyes and all related structures Sclera: sclerae normal Neck: Neck: normal visual inspection, supple and no JVD Carotids: normal carotid upstroke Resp: Effort & Inspection: normal respiratory effort Auscultation: clear to auscultation bilaterally Cardio: Rate: tachycardic Rhythm: regular rhythm Heart sounds: S1 normal heart sound present, S2 normal heart sound present and no murmurs GI: Auscultation: normal bowel sounds Skin: General skin exam: normal color Neuro: General: patient oriented x3 Extrem: General: normal to inspection Psych: Appearance: grossly normal Mental Status: mental status grossly normal Objective Data Vital Signs Vital Signs: Vital Signs - 24 hr 07/12/24 14:00 07/12/24 16:00 07/12/24 20:00 Temperature 36.4 C L 36.6 C Pulse Rate 112 H 135 H 123 H Respiratory Rate 18 18 Blood Pressure 115/64 140/72 Pulse Oximetry 99 96 Oxygen Delivery 07/12/24 20:00 07/12/24 20:17 07/12/24 20:18 Temperature 36.6 C Pulse Rate 123 H Respiratory Rate 18 Blood Pressure 140/72 87/50 L 71/41 L Pulse Oximetry 96 Oxygen Delivery 07/12/24 20:00 07/12/24 20:00 07/12/24 21:38 Temperature Pulse Rate 122 H 117 H Respiratory Rate Blood Pressure 121/59 L Pulse Oximetry Oxygen Delivery Room Air 07/13/24 00:00 07/13/24 00:00 07/13/24 04:00 Temperature 36.9 C Pulse Rate 107 H 119 H 96 Respiratory Rate 12 Blood Pressure 107/49 L Pulse Oximetry 96 Oxygen Delivery 07/13/24 04:00 07/13/24 08:00 07/13/24 08:00 Temperature 36.6 C 35.5 C L 35.9 C L Pulse Rate 113 H 109 H Respiratory Rate 14 18 Blood Pressure 127/58 L 127/54 L Pulse Oximetry 97 97 Oxygen Delivery 07/13/24 10:26 07/13/24 10:27 07/13/24 10:27 Temperature Pulse Rate 130 H Respiratory Rate Blood Pressure 147/68 H 112/57 L 94/58 L Pulse Oximetry Oxygen Delivery 07/13/24 12:00 07/13/24 08:00 Temperature 35.8 C L Pulse Rate 111 H Respiratory Rate 18 Blood Pressure 135/68 Pulse Oximetry 94 Oxygen Delivery Room Air Intake/Output Intake/Output: Intake & Output 07/10/24 07/11/24 07/12/24 07/13/24 23:59 23:59 23:59 23:59 Intake Total 3662 734 6447 540 Output Total 200 350 250 Balance 4280 986 6072 290 Meds/Results Medications: Active Medications Generic Name Dose Route Start Last Admin Trade Name Freq PRN Reason Stop Dose Admin Allopurinol 300 mg 07/11/24 09:00 07/13/24 09:45 Allopurinol 300 Mg Tablet PO 300 mg DAILY CLARISSA Administration Alprazolam 0.5 mg 07/10/24 22:47 07/12/24 20:21 Alprazolam (*Crx) 0.5 Mg Tablet PO 0.5 mg TID PRN Administration Anxiety Aspirin 81 mg 07/11/24 09:00 07/13/24 09:46 Aspirin 81 Mg Enteric Tablet PO 81 mg DAILY CLARISSA Administration Docusate Sodium 100 mg 07/12/24 17:11 07/12/24 17:31 Docusate Sodium 100 Mg Capsule PO 100 mg Q12H PRN Administration Constipation Famotidine 20 mg 07/12/24 17:00 07/12/24 17:01 Famotidine 20 Mg Tablet PO 20 mg 1700 [facility] Administration Magnesium Sulfate 2 gm in 50 mls @ 25 mls/hr 07/13/24 12:40 07/13/24 12:57 Magnesium Sulf 2 Gm/Water 50ml IVPB 07/13/24 14:39 25 mls/hr ONCE ONE Administration Midodrine 5 mg 07/13/24 17:00 Midodrine Hcl 2.5 Mg Tablet PO TID [facility] Miscellaneous Information 0 each 07/10/24 00:01 07/11/24 00:26 Kerendia = Nonformulary. Can Pt Use From Home? XX 08/09/24 00:00 Not Given CLARIFY [facility] Nitroglycerin 0.4 mg 07/11/24 19:56 Nitroglycerin Sl 0.4 Mg Tablet SUBLINGUAL Q5MIN PRN Chest Pain Nortriptyline HCl 25 mg 07/10/24 21:00 07/12/24 20:21 Nortriptyline Hcl 25 Mg Capsule PO 25 mg QHS CLARISSA Administration Pantoprazole Sodium 40 mg 07/11/24 09:00 07/13/24 09:46 Pantoprazole 40 Mg Tablet PO 40 mg DAILY CLARISSA Administration Pentoxifylline 400 mg 07/11/24 09:00 07/13/24 12:03 Pentoxifylline 400 Mg Tabcr PO 400 mg TID CLARISSA Administration Perflutren Lipid Microsphere 0 ml 07/10/24 22:57 Perflutren Lipid Microspheres 1.5 Ml Vial Diluted To 10 Ml Total Volume IV PUSH 07/13/24 22:57 ONCE PRN adequate visualization Protocol Rosuvastatin Calcium 40 mg 07/11/24 09:00 07/13/24 09:45 Rosuvastatin 20 Mg Tablet PO 40 mg DAILY CLARISSA Administration Ticagrelor 60 mg 07/10/24 21:00 07/13/24 09:46 Ticagrelor 60 Mg Tablet PO 60 mg Q12HR CLARISSA Administration Radiology Results: ITS Impressions Head CT 07/10/24 17:22 IMPRESSION: No acute intracranial process. Chest X-Ray 07/10/24 17:51 IMPRESSION: No acute cardiopulmonary process. Chest CTA 07/10/24 19:38 IMPRESSION: No CT evidence of acute pulmonary embolus. No acute process detected in the chest. ADDENDUM: 07/10/24 1950 1.7 cm right thyroid nodule, consider nonemergent outpatient thyroid ultrasound for further evaluation. Renal Ultrasound 07/11/24 08:35 IMPRESSION: Bilateral lobation is noted. Diverticulum to the left side of the urinary bladder. Labs Labs: Laboratory Results - last 24 hr 07/12/24 07/12/24 07/13/24 16:17 20:28 05:59 WBC RBC Hgb Hct MCV MCH MCHC RDW Plt Count MPV Immature Gran % (Auto) Neut % (Auto) Lymph % (Auto) [place] % (Auto) Eos % (Auto) Baso % (Auto) Lymph # (Auto) [place] # (Auto) Eos # (Auto) Baso # (Auto) Abs Immat Gran (auto) Absolute Neuts (auto) Absolute Nucleated RBC Nucleated RBC % Sodium Potassium Chloride Carbon Dioxide Anion Gap BUN Creatinine Estim Creat Clear Calc Estimated GFR Glucose POC Capillary Glucose 134 H 211 H Calcium Magnesium Total Bilirubin AST ALT Alkaline Phosphatase Troponin I Total Protein Albumin TSH (Reflex) 0.453 L Free T4 1.27 Total T3 1.28 07/13/24 07/13/24 07/13/24 06:04 08:24 11:30 WBC 9.2 RBC 4.06 L Hgb 12.5 L Hct 37.0 L MCV 91.1 MCH 30.8 MCHC 33.8 RDW 13.3 Plt Count 205 MPV 10.9 H Immature Gran % (Auto) 0.5 Neut % (Auto) 67.2 Lymph % (Auto) 20.2 [place] % (Auto) 8.9 H Eos % (Auto) 2.5 Baso % (Auto) 0.7 Lymph # (Auto) 1.85 [place] # (Auto) 0.8 H Eos # (Auto) 0.2 Baso # (Auto) 0.1 Abs Immat Gran (auto) 0.05 H Absolute Neuts (auto) 6.2 Absolute Nucleated RBC 0.000 Nucleated RBC % 0.0 Sodium 135 L Potassium 3.5 Chloride 103 Carbon Dioxide 27 Anion Gap 5 BUN 27 H Creatinine 2.00 H Estim Creat Clear Calc 27 Estimated GFR 33 L Glucose 164 H POC Capillary Glucose 131 H 166 H Calcium 10.3 H Magnesium 1.6 Total Bilirubin 0.4 AST 29 ALT 24 Alkaline Phosphatase 107 Troponin I Total Protein 7.0 Albumin 3.9 TSH (Reflex) Free T4 Total T3 07/13/24 13:05 WBC RBC Hgb Hct MCV MCH MCHC RDW Plt Count MPV Immature Gran % (Auto) Neut % (Auto) Lymph % (Auto) [place] % (Auto) Eos % (Auto) Baso % (Auto) Lymph # (Auto) [place] # (Auto) Eos # (Auto) Baso # (Auto) Abs Immat Gran (auto) Absolute Neuts (auto) Absolute Nucleated RBC Nucleated RBC % Sodium Potassium Chloride Carbon Dioxide Anion Gap BUN Creatinine Estim Creat Clear Calc Estimated GFR Glucose POC Capillary Glucose Calcium Magnesium Total Bilirubin AST ALT Alkaline Phosphatase Troponin I < 0.012 Total Protein Albumin TSH (Reflex) Free T4 Total T3
[2024-07-13 16:27] LABS: Glucose Point of Care 133 mg/dl (65-105)
[2024-07-13] MEDS: carvediloL 6.25 MG TABLET PO (17:07)
[2024-07-13] MEDS: FAMOTIDINE 20 MG TABLET PO (17:07)
[2024-07-13] MEDS: MIDODRINE HCL 2.5 MG TABLET 5 MG PO (17:07)
[2024-07-13 19:55] LABS: Troponin I < 0.012 ng/mL (0.000-0.034)
[2024-07-13] MEDS: NORTRIPTYLINE HCL 25 MG CAPSULE PO (20:36)
[2024-07-13] MEDS: ALPRAZolam (*CRX) 0.5 MG TABLET PO (20:36)
[2024-07-13 21:03] LABS: Glucose Point of Care 174 mg/dl (65-105)
[2024-07-14] VITALS (16 sets, daily range): BP systolic 80–143; BP diastolic 43–64; PULSE 65–119; RESP 14–16; TEMP 36.1–36.7; O2SAT 95–99
[2024-07-14 07:46] LABS: Basophils Absolute Auto 0.1 K/mm3 (0.0-0.1); Basophils Percent Auto 0.8 % (0.2-1.2); Eosinophils Absolute Auto 0.2 K/mm3 (0-0.3); Eosinophils Percent Auto 2.4 % (0-4.4); Hematocrit 37.2 % (42.0-52.0); Immature Granulocyte Absolute 0.05 K/mm3 (0.00-0.031); Immature Granulocyte Percent A 0.5 % (0-0.5); Lymphocytes Absolute Auto 1.79 K/mm3 (0.9-3.2); Lymphocytes Percent Auto 17.8 % (18.3-44.2); Mean Corpuscular HGB Conc 34.9 g/dl (32-36); Mean Corpuscular Hemoglobin 31.6 pg (26-34); Mean Corpuscular Volume 90.3 fl (80-100); Mean Platelet Volume 10.8 fl (7.4-10.4); Monocytes Absolute Auto 0.9 K/mm3 (0.1-0.6); Monocytes Percent Auto 8.5 % (2.6-8.5); Platelet Count Result 196 k/mm3 (150-375); Red Blood Count 4.12 M/mm3 (4.6-6.20); Red Cell Distribution Width 13.2 % (11.5-14.5); White Blood Count 10.1 K/mm3 (4.5-10.0)
[2024-07-14 08:00] LABS: Alanine Aminotransferase 25 U/L (6-50); Albumin Level 3.9 g/dL (3.5-5.1); Alkaline Phosphatase 116 U/L (38-126); Anion Gap 9 mmol/L (4-12); Aspartate Amino Transferase 31 U/L (17-59); Bilirubin,Total 0.6 mg/dL (0.2-1.3); Blood Urea Nitrogen 29 mg/dL (9-20); Calcium 10.5 mg/dL (8.4-10.2); Carbon Dioxide 25 mmol/L (22-30); Chloride 100 mmol/L (98-107); Estimated CRCL calculation 28 ml/min; Estimated Glomerular Filt Rate 35; Glucose 151 mg/dL (65-110); Magnesium 1.9 mg/dL (1.6-2.3); Potassium 3.7 mmol/L (3.4-5.0); Sodium 134 mmol/L (137-145)
[2024-07-14 08:01] LABS: Glucose Point of Care 144 mg/dl (65-105)
[2024-07-14] MEDS: MIDODRINE HCL 2.5 MG TABLET 5 MG PO ×2 (08:27→12:16)
[2024-07-14] MEDS: ASPIRIN 81 MG ENTERIC TABLET PO (08:27)
[2024-07-14] MEDS: carvediloL 6.25 MG TABLET PO ×2 (08:28→21:19)
[2024-07-14] MEDS: TICAGRELOR 60 MG TABLET PO ×2 (08:28→21:18)
[2024-07-14] MEDS: ROSUVASTATIN 20 MG TABLET 40 MG PO (08:28)
[2024-07-14] MEDS: PENTOXIFYLLINE 400 MG TABCR PO ×3 (08:28→16:58)
[2024-07-14] MEDS: allopurinoL 300 MG TABLET PO (08:28)
[2024-07-14] MEDS: PANTOPRAZOLE 40 MG TABLET PO (08:29)
--- NOTE | 2024-07-14 09:05 | P.PNIM_ITS ---
Progress Note: A&P Assessment and Plan (1) Light-headedness: Code(s): R42 - Dizziness and giddiness Status: Acute Assessment and Plan: * Orthostatic blood pressure q shift: Positive this morning * His symptoms are most consistent with orthostatic hypotension, and his orthostatic vital signs are positive. * Maintain adequate hydration * DEAN hose and abdominal binder * Caution when transitioning from sitting or lying to standing, fall precaution due to patient Brilinta he was educated on the port and in his CT of his head. * Increase Midodrine 10 mg PO TID. * Cardiology consult * echocardiogram shows EF of over 70% * Patient started back on beta-blockers due to being tachycardic (2) Exertional dyspnea: Code(s): R06.09 - Other forms of dyspnea Status: Acute Assessment and Plan: * monitor symptoms (3) CAD (coronary artery disease): Qualifiers: Associated angina: without angina Coronary Disease-Associated Artery/Lesion type: [place] artery [place] vs. transplanted heart: [place] heart Qualified Code(s): I25.10 - Atherosclerotic heart disease of [place] coronary artery without angina pectoris Code(s): I25.10 - Atherosclerotic heart disease of [place] coronary artery without angina pectoris Status: Acute Assessment and Plan: * Recent stress echocardiogram showed no evidence of ischemia and LVEF was normal. * Continue ASA, Brilinta 60mg b.i.d. (per [place] [facility]) * Continue statin * Risk factor modification for CAD * Patient had two episodes of 17 beat runs of Vtach. Patient reports feeling heart race during those times. EKG obtained showed HR 104, QTc [address] with QRS changes from narrow complexes to left bundle branch block. * Cardiology saw patient and added Carvedilol 6.25 mg PO BID. * Trop <0.012 (4) JOEY (acute kidney injury): Code(s): N17.9 - Acute kidney failure, unspecified Status: Acute Assessment and Plan: improving * In October of this year his SCr was 1.3 and it has gradually increased. * 07/13/24: BUN 27, Creatinine 2.00, and GFR 33. * 07/12/24: BUN 30, Creatinine 2.10, and GFR 31. * 07/11/24: BUN 31, Creatinine 2.20, and GFR 29. * 07/10/24: BUN 41, Creatinine 2.30, and GFR 28. * Encourage hydration. (5) Chronic kidney disease, stage 3a: Code(s): N18.31 - Chronic kidney disease, stage 3a Status: Acute Assessment and Plan: * 07/13/24: BUN 27, Creatinine 2.00, and GFR 33. * 07/12/24: BUN 30, Creatinine 2.10, and GFR 31. * 07/11/24: BUN 31, Creatinine 2.20, and GFR 29. * 07/10/24: BUN 41, Creatinine 2.30, and GFR 28. * Encourage hydration. (6) Hypomagnesemia: Code(s): E83.42 - Hypomagnesemia Status: Acute Assessment and Plan: * Magnesium 1.6. * Magnesium Sulfate 2 gm IVPB x 1 given. * Monitor labs. (7) GERD (gastroesophageal reflux disease): Code(s): K21.9 - Gastro-esophageal reflux disease without esophagitis Status: Acute Assessment and Plan: * Pantoprazole 40 mg PO daily. Time Spent With Patient Time with patient: Greater than 35 minutes Subjective Date/time seen: 07/14/24 09:05 Interval history: 73-year-old male with past medical history significant for coronary artery disease, chronic kidney disease, hypertension, diabetes, diabetic peripheral neuropathy, gout presents with orthostatic hypotension. Patient was severe orthostatic hypotension this morning, will repeat orthostatic vital signs after next midodrine, will likely need dose adjustment Review of Systems Review of Systems: lightheadedness, shortness of breath All systems reviewed & are unremarkable except as noted in HPI and below Exam Const: General: cooperative, comfortable, no acute distress, well developed, alert, awake, ill appearing chronically and average body habitus Nutritional Appearance: average body habitus Orientation/consciousness: patient oriented x3 HENMT: Head: normal to inspection, normocephalic and atraumatic Ears: hearing grossly normal bilaterally Face/Nose/Sinus: normal facial exam Face and sinus: normal facial exam Eyes: General: appearance normal, both eyes and all related structures Pupils: Equal, round and reactive pupils present EOM: EOMs intact bilaterally Neck: Neck: full ROM, no lymphadenopathy and no JVD Thyroid: thyroid normal Lymphatic: no lymphadenopathy noted Resp: Effort & Inspection: normal respiratory effort and able to speak in complete sentences Auscultation: clear to auscultation bilaterally Cardio: Jugular venous distension: no JVD Rate: regular rate and tachycardic Rhythm: regular rhythm Heart sounds: S1 normal heart sound present and S2 normal heart sound present GI: Inspection: obesity Auscultation: normal bowel sounds : General: Yes deferred Skin: General skin exam: no rashes or lesions noted Rashes: no rashes Wounds: no wounds Neuro: General: patient oriented x3 and CN's II-XI intact bilaterally Cranial nerves: Yes CN's II-XII intact bilaterally and Yes Equal, round and reactive pupils present Cognition (Neuro): normal cognition Speech: normal speech Gait exam (Neuro): Normal gait present Motor exam (neuro): 5/5 motor strength present throughout Extrem: General: normal to inspection, full ROM, no joint enlargement and no pedal edema Psych: Mental Status: mental status grossly normal Affect: normal affect Objective Data Vital Signs Vital Signs: Vital Signs - 24 hr 07/13/24 10:26 07/13/24 10:27 07/13/24 10:27 Temperature Pulse Rate 130 H Respiratory Rate Blood Pressure 147/68 H 112/57 L 94/58 L Pulse Oximetry Oxygen Delivery 07/13/24 12:00 07/13/24 16:00 07/13/24 12:00 Temperature 96.5 F L 96.9 F L Pulse Rate 111 H 120 H 126 H Respiratory Rate 18 18 Blood Pressure 135/68 150/60 H Pulse Oximetry 94 94 Oxygen Delivery 07/13/24 16:00 07/13/24 20:00 07/13/24 20:00 Temperature 97.9 F 97.9 F Pulse Rate 111 H 105 H 104 H Respiratory Rate 18 18 Blood Pressure 148/76 H 106/62 Pulse Oximetry 98 99 Oxygen Delivery 07/13/24 20:00 07/13/24 20:00 07/13/24 20:00 Temperature 97.9 F Pulse Rate 133 H 106 H Respiratory Rate 18 Blood Pressure 85/57 L Pulse Oximetry 94 Oxygen Delivery Room Air 07/13/24 23:42 07/14/24 00:00 07/14/24 04:00 Temperature 98.1 F 97.5 F L Pulse Rate 103 H 110 H 65 Respiratory Rate 16 16 Blood Pressure 116/68 122/64 Pulse Oximetry 97 95 Oxygen Delivery 07/14/24 04:00 07/14/24 08:28 07/14/24 08:00 Temperature 97.0 F L Pulse Rate 96 98 109 H Respiratory Rate 14 Blood Pressure 141/53 H Pulse Oximetry 99 Oxygen Delivery 07/14/24 08:00 07/14/24 08:05 07/14/24 08:10 Temperature Pulse Rate Respiratory Rate Blood Pressure 141/53 H 126/63 94/64 L Pulse Oximetry Oxygen Delivery 07/14/24 08:02 Temperature Pulse Rate 119 H Respiratory Rate Blood Pressure Pulse Oximetry Oxygen Delivery Intake/Output Intake/Output: Intake & Output 07/11/24 07/12/24 07/13/24 07/14/24 23:59 23:59 23:59 23:59 Intake Total 478 1840 1270 440 Output Total 200 350 850 Balance 278 1490 420 440 Meds/Results Medications: Active Medications Generic Name Dose Route Start Last Admin Trade Name Freq PRN Reason Stop Dose Admin Allopurinol 300 mg 07/11/24 09:00 07/14/24 08:28 Allopurinol 300 Mg Tablet PO 300 mg DAILY CLARISSA Administration Alprazolam 0.5 mg 07/10/24 22:47 07/13/24 20:36 Alprazolam (*Crx) 0.5 Mg Tablet PO 0.5 mg TID PRN Administration Anxiety Aspirin 81 mg 07/11/24 09:00 07/14/24 08:27 Aspirin 81 Mg Enteric Tablet PO 81 mg DAILY CLARISSA Administration Carvedilol 6.25 mg 07/13/24 14:00 07/14/24 08:28 Carvedilol 6.25 Mg Tablet PO 6.25 mg Q12HR CLARISSA Administration Docusate Sodium 100 mg 07/12/24 17:11 07/12/24 17:31 Docusate Sodium 100 Mg Capsule PO 100 mg Q12H PRN Administration Constipation Famotidine 20 mg 07/12/24 17:00 07/13/24 17:07 Famotidine 20 Mg Tablet PO 20 mg 1700 CLARISSA Administration Midodrine 5 mg 07/13/24 17:00 07/14/24 08:27 Midodrine Hcl 2.5 Mg Tablet PO 5 mg TID CLARISSA Administration Miscellaneous Information 0 each 07/10/24 00:01 07/11/24 00:26 Kerendia = Nonformulary. Can Pt Use From Home? XX 08/09/24 00:00 Not Given CLARIFY CLARISSA Nitroglycerin 0.4 mg 07/11/24 19:56 Nitroglycerin Sl 0.4 Mg Tablet SUBLINGUAL Q5MIN PRN Chest Pain Nortriptyline HCl 25 mg 07/10/24 21:00 07/13/24 20:36 Nortriptyline Hcl 25 Mg Capsule PO 25 mg QHS CLARISSA Administration Pantoprazole Sodium 40 mg 07/11/24 09:00 07/14/24 08:29 Pantoprazole 40 Mg Tablet PO 40 mg DAILY CLARISSA Administration Pentoxifylline 400 mg 07/11/24 09:00 07/14/24 08:28 Pentoxifylline 400 Mg Tabcr PO 400 mg TID CLARISSA Administration Rosuvastatin Calcium 40 mg 07/11/24 09:00 07/14/24 08:28 Rosuvastatin 20 Mg Tablet PO 40 mg DAILY CLARISSA Administration Ticagrelor 60 mg 07/10/24 21:00 07/14/24 08:28 Ticagrelor 60 Mg Tablet PO 60 mg Q12HR CLARISSA Administration Radiology Results: ITS Impressions Head CT 07/10/24 17:22 IMPRESSION: No acute intracranial process. Chest X-Ray 07/10/24 17:51 IMPRESSION: No acute cardiopulmonary process. Chest CTA 07/10/24 19:38 IMPRESSION: No CT evidence of acute pulmonary embolus. No acute process detected in the chest. ADDENDUM: 07/10/24 1950 1.7 cm right thyroid nodule, consider nonemergent outpatient thyroid ultrasound for further evaluation. Renal Ultrasound 07/11/24 08:35 IMPRESSION: Bilateral lobation is noted. Diverticulum to the left side of the urinary bladder. Labs Labs: Laboratory Results - last 24 hr 07/13/24 07/13/24 07/13/24 05:59 11:30 13:05 WBC RBC Hgb Hct MCV MCH MCHC RDW Plt Count MPV Immature Gran % (Auto) Neut % (Auto) Lymph % (Auto) Turner % (Auto) Eos % (Auto) Baso % (Auto) Lymph # (Auto) Turner # (Auto) Eos # (Auto) Baso # (Auto) Abs Immat Gran (auto) Absolute Neuts (auto) Absolute Nucleated RBC Nucleated RBC % Sodium Potassium Chloride Carbon Dioxide Anion Gap BUN Creatinine Estim Creat Clear Calc Estimated GFR Glucose POC Capillary Glucose 166 H Calcium Magnesium Total Bilirubin AST ALT Alkaline Phosphatase Troponin I < 0.012 Total Protein Albumin TSH (Reflex) 0.453 L Free T4 1.27 Total T3 1.28 07/13/24 07/13/24 07/13/24 16:19 19:23 20:59 WBC RBC Hgb Hct MCV MCH MCHC RDW Plt Count MPV Immature Gran % (Auto) Neut % (Auto) Lymph % (Auto) Turner % (Auto) Eos % (Auto) Baso % (Auto) Lymph # (Auto) Turner # (Auto) Eos # (Auto) Baso # (Auto) Abs Immat Gran (auto) Absolute Neuts (auto) Absolute Nucleated RBC Nucleated RBC % Sodium Potassium Chloride Carbon Dioxide Anion Gap BUN Creatinine Estim Creat Clear Calc Estimated GFR Glucose POC Capillary Glucose 133 H 174 H Calcium Magnesium Total Bilirubin AST ALT Alkaline Phosphatase Troponin I < 0.012 Total Protein Albumin TSH (Reflex) Free T4 Total T3 07/14/24 07/14/24 06:42 07:43 WBC 10.1 H RBC 4.12 L Hgb 13.0 L Hct 37.2 L MCV 90.3 MCH 31.6 MCHC 34.9 RDW 13.2 Plt Count 196 MPV 10.8 H Immature Gran % (Auto) 0.5 Neut % (Auto) 70.0 Lymph % (Auto) 17.8 L Turner % (Auto) 8.5 Eos % (Auto) 2.4 Baso % (Auto) 0.8 Lymph # (Auto) 1.79 Turner # (Auto) 0.9 H Eos # (Auto) 0.2 Baso # (Auto) 0.1 Abs Immat Gran (auto) 0.05 H Absolute Neuts (auto) 7.0 H Absolute Nucleated RBC 0.000 Nucleated RBC % 0.0 Sodium 134 L Potassium 3.7 Chloride 100 Carbon Dioxide 25 Anion Gap 9 BUN 29 H Creatinine 1.90 H Estim Creat Clear Calc 28 Estimated GFR 35 L Glucose 151 H POC Capillary Glucose 144 H Calcium 10.5 H Magnesium 1.9 Total Bilirubin 0.6 AST 31 ALT 25 Alkaline Phosphatase 116 Troponin I Total Protein 7.0 Albumin 3.9 TSH (Reflex) Free T4 Total T3 Quality VTE Prophylaxis VTE prophylaxis: mechanical ordered and pharmacologic ordered Hospitalist MIPS Advance Care Plan I have confirmed that the patient's Advanced Care Plan is present, code status is documented, or surrogate decision maker is listed in patient medical record.: Yes Medication Reconciliation I have utilized all available resources to obtain, update and review the patients current medications (includes all prescriptions, OTC, herbals, cannabis, and nutritional supplements).: Yes
[2024-07-14 12:06] LABS: Glucose Point of Care 138 mg/dl (65-105)
--- NOTE | 2024-07-14 13:55 | PCPTNOTE ---
Attempted to see for physical therapy evaluation, orthostatics at 1330 were in the 80s/40s. RN states new med is starting at 1700, will hold on PT evaluation until tomorrow when pt is more medically stabilized.
--- NOTE | 2024-07-14 13:55 | PCOTNOTE ---
Pt currently in the 80/40s when standing due to orthostatic hypotension. New med to start at 5pm that may help this so will hold until tomorrow to see for therapy. Will continue to follow.
--- NOTE | 2024-07-14 14:27 | PM.PNCARD ---
Progress Note: A&P Assessment and Plan (1) Wide-complex tachycardia: Code(s): R00.0 - Tachycardia, unspecified Status: Acute (2) Coronary artery disease: Code(s): I25.10 - Atherosclerotic heart disease of [place] coronary artery without angina pectoris Status: Chronic Plan 73-year-old male with CAD status post PCI to left circ (2016), peripheral arterial disease, hypertension, hyperlipidemia, type 2 diabetes initially presented with dizziness and lightheadedness found to have chest discomfort as well as possible ventricular arrhythmia for which a left heart catheterization was recommended Chest pain -given the associated possible ventricular arrhythmia, agree with pursuing left heart catheterization to define coronary anatomy with possible PCI -since patient ate today, we will elect for cardiac catheterization tomorrow -please keep patient NPO past midnight CAD status post PCI -continue aspirin 81 mg p.o. daily and Brilinta 60 mg p.o. b.i.d. -continue carvedilol 6.25 mg p.o. b.i.d. Hypertension -it was seen that this has resolved and he has episodes of hypotension requiring midodrine treatment Hyperlipidemia -continue rosuvastatin 40 mg every Subjective Date/time seen: 07/14/24 14:27 Interval history: Yesterday he endorse some chest tightness which he has been having intermittently prior to coming to the hospital. Yesterday he was also noted to have ventricular tachycardia versus aberrantly conducted rhythm. He was recommended for left heart catheterization Exam Const: General: comfortable HENMT: Mouth: Yes moist mucous membranes Eyes: EOM: EOMs intact bilaterally Neck: Neck: no JVD Resp: Effort & Inspection: normal respiratory effort Auscultation: clear to auscultation bilaterally Cardio: Rate: regular rate Rhythm: regular rhythm GI: GI Palp: Yes Soft to palpation Neuro: Speech: normal speech Extrem: General: normal to inspection Objective Data Vital Signs Vital Signs: Vital Signs - 24 hr 07/13/24 16:00 07/13/24 16:00 07/13/24 20:00 Temperature 36.1 C L 36.6 C Pulse Rate 120 H 111 H 105 H Respiratory Rate 18 18 Blood Pressure 150/60 H 148/76 H Pulse Oximetry 94 98 Oxygen Delivery 07/13/24 20:00 07/13/24 20:00 07/13/24 20:00 Temperature 36.6 C 36.6 C Pulse Rate 104 H 133 H Respiratory Rate 18 18 Blood Pressure 106/62 85/57 L Pulse Oximetry 99 94 Oxygen Delivery Room Air 07/13/24 20:00 07/13/24 23:42 07/14/24 00:00 Temperature 36.7 C Pulse Rate 106 H 103 H 110 H Respiratory Rate 16 Blood Pressure 116/68 Pulse Oximetry 97 Oxygen Delivery 07/14/24 04:00 07/14/24 04:00 07/14/24 08:28 Temperature 36.4 C L Pulse Rate 65 96 98 Respiratory Rate 16 Blood Pressure 122/64 Pulse Oximetry 95 Oxygen Delivery 07/14/24 08:00 07/14/24 08:00 07/14/24 08:05 Temperature 36.1 C L Pulse Rate 109 H Respiratory Rate 14 Blood Pressure 141/53 H 141/53 H 126/63 Pulse Oximetry 99 Oxygen Delivery 07/14/24 08:10 07/14/24 08:02 07/14/24 12:00 Temperature 36.7 C Pulse Rate 119 H 110 H Respiratory Rate 16 Blood Pressure 94/64 L 143/62 H Pulse Oximetry 96 Oxygen Delivery 07/14/24 12:02 07/14/24 13:15 07/14/24 08:00 Temperature Pulse Rate 114 H Respiratory Rate Blood Pressure 81/46 L Pulse Oximetry Oxygen Delivery Room Air Intake/Output Intake/Output: Intake & Output 07/11/24 07/12/24 07/13/24 07/14/24 23:59 23:59 23:59 23:59 Intake Total 478 1840 1270 680 Output Total 200 350 850 Balance 278 1490 420 680 Meds/Results Medications: Active Medications Generic Name Dose Route Start Last Admin Trade Name Freq PRN Reason Stop Dose Admin Allopurinol 300 mg 07/11/24 09:00 07/14/24 08:28 Allopurinol 300 Mg Tablet PO 300 mg DAILY CLARISSA Administration Alprazolam 0.5 mg 07/10/24 22:47 07/13/24 20:36 Alprazolam (*Crx) 0.5 Mg Tablet PO 0.5 mg TID PRN Administration Anxiety Aspirin 81 mg 07/11/24 09:00 07/14/24 08:27 Aspirin 81 Mg Enteric Tablet PO 81 mg DAILY CLARISSA Administration Carvedilol 6.25 mg 07/13/24 14:00 07/14/24 08:28 Carvedilol 6.25 Mg Tablet PO 6.25 mg Q12HR CLARISSA Administration Docusate Sodium 100 mg 07/12/24 17:11 07/12/24 17:31 Docusate Sodium 100 Mg Capsule PO 100 mg Q12H PRN Administration Constipation Famotidine 20 mg 07/12/24 17:00 07/13/24 17:07 Famotidine 20 Mg Tablet PO 20 mg 1700 CLARISSA Administration Midodrine 10 mg 07/14/24 17:00 Midodrine Hcl 2.5 Mg Tablet PO TID [facility] Miscellaneous Information 0 each 07/10/24 00:01 07/11/24 00:26 Kerendia = Nonformulary. Can Pt Use From Home? XX 08/09/24 00:00 Not Given CLARIFY CLARISSA Nitroglycerin 0.4 mg 07/11/24 19:56 Nitroglycerin Sl 0.4 Mg Tablet SUBLINGUAL Q5MIN PRN Chest Pain Nortriptyline HCl 25 mg 07/10/24 21:00 07/13/24 20:36 Nortriptyline Hcl 25 Mg Capsule PO 25 mg QHS CLARISSA Administration Pantoprazole Sodium 40 mg 07/11/24 09:00 07/14/24 08:29 Pantoprazole 40 Mg Tablet PO 40 mg DAILY CLARISSA Administration Pentoxifylline 400 mg 07/11/24 09:00 07/14/24 12:17 Pentoxifylline 400 Mg Tabcr PO 400 mg TID [facility] Administration Rosuvastatin Calcium 40 mg 07/11/24 09:00 07/14/24 08:28 Rosuvastatin 20 Mg Tablet PO 40 mg DAILY CLARISSA Administration Ticagrelor 60 mg 07/10/24 21:00 07/14/24 08:28 Ticagrelor 60 Mg Tablet PO 60 mg Q12HR CLARISSA Administration Radiology Results: ITS Impressions Head CT 07/10/24 17:22 IMPRESSION: No acute intracranial process. Chest X-Ray 07/10/24 17:51 IMPRESSION: No acute cardiopulmonary process. Chest CTA 07/10/24 19:38 IMPRESSION: No CT evidence of acute pulmonary embolus. No acute process detected in the chest. ADDENDUM: 07/10/24 1950 1.7 cm right thyroid nodule, consider nonemergent outpatient thyroid ultrasound for further evaluation. Renal Ultrasound 07/11/24 08:35 IMPRESSION: Bilateral lobation is noted. Diverticulum to the left side of the urinary bladder. Labs Labs: Laboratory Results - last 24 hr 07/13/24 07/13/24 07/13/24 16:19 19:23 20:59 WBC RBC Hgb Hct MCV MCH MCHC RDW Plt Count MPV Immature Gran % (Auto) Neut % (Auto) Lymph % (Auto) Keith % (Auto) Eos % (Auto) Baso % (Auto) Lymph # (Auto) Keith # (Auto) Eos # (Auto) Baso # (Auto) Abs Immat Gran (auto) Absolute Neuts (auto) Absolute Nucleated RBC Nucleated RBC % Sodium Potassium Chloride Carbon Dioxide Anion Gap BUN Creatinine Estim Creat Clear Calc Estimated GFR Glucose POC Capillary Glucose 133 H 174 H Calcium Magnesium Total Bilirubin AST ALT Alkaline Phosphatase Troponin I < 0.012 Total Protein Albumin 07/14/24 07/14/24 07/14/24 06:42 07:43 11:42 WBC 10.1 H RBC 4.12 L Hgb 13.0 L Hct 37.2 L MCV 90.3 MCH 31.6 MCHC 34.9 RDW 13.2 Plt Count 196 MPV 10.8 H Immature Gran % (Auto) 0.5 Neut % (Auto) 70.0 Lymph % (Auto) 17.8 L Keith % (Auto) 8.5 Eos % (Auto) 2.4 Baso % (Auto) 0.8 Lymph # (Auto) 1.79 Keith # (Auto) 0.9 H Eos # (Auto) 0.2 Baso # (Auto) 0.1 Abs Immat Gran (auto) 0.05 H Absolute Neuts (auto) 7.0 H Absolute Nucleated RBC 0.000 Nucleated RBC % 0.0 Sodium 134 L Potassium 3.7 Chloride 100 Carbon Dioxide 25 Anion Gap 9 BUN 29 H Creatinine 1.90 H Estim Creat Clear Calc 28 Estimated GFR 35 L Glucose 151 H POC Capillary Glucose 144 H 138 H Calcium 10.5 H Magnesium 1.9 Total Bilirubin 0.6 AST 31 ALT 25 Alkaline Phosphatase 116 Troponin I Total Protein 7.0 Albumin 3.9
[2024-07-14] MEDS: ALPRAZolam (*CRX) 0.5 MG TABLET PO ×2 (14:31→21:18)
[2024-07-14] MEDS: FAMOTIDINE 20 MG TABLET PO (16:58)
[2024-07-14 17:00] LABS: Glucose Point of Care 162 mg/dl (65-105)
[2024-07-14] MEDS: MIDODRINE HCL 2.5 MG TABLET 10 MG PO (17:05)
[2024-07-14 20:21] LABS: Glucose Point of Care 129 mg/dl (65-105)
[2024-07-14] MEDS: NORTRIPTYLINE HCL 25 MG CAPSULE PO (21:18)
[2024-07-15] VITALS (33 sets, daily range): BP systolic 96–155; BP diastolic 39–86; PULSE 77–112; RESP 13–100; TEMP 36.2–36.7; O2SAT 94–100
[2024-07-15 07:13] LABS: Basophils Absolute Auto 0.1 K/mm3 (0.0-0.1); Basophils Percent Auto 0.7 % (0.2-1.2); Eosinophils Absolute Auto 0.2 K/mm3 (0-0.3); Eosinophils Percent Auto 2.2 % (0-4.4); Hemoglobin 13.1 g/dL (14.0-18.0); Immature Granulocyte Absolute 0.06 K/mm3 (0.00-0.031); Immature Granulocyte Percent A 0.6 % (0-0.5); Lymphocytes Absolute Auto 1.85 K/mm3 (0.9-3.2); Lymphocytes Percent Auto 18.4 % (18.3-44.2); Mean Corpuscular HGB Conc 34.5 g/dl (32-36); Mean Corpuscular Hemoglobin 31.2 pg (26-34); Mean Corpuscular Volume 90.5 fl (80-100); Mean Platelet Volume 10.7 fl (7.4-10.4); Monocytes Absolute Auto 0.8 K/mm3 (0.1-0.6); Monocytes Percent Auto 7.6 % (2.6-8.5); Neutrophils Absolute Auto 7.1 K/mm3 (1.3-6.7); Neutrophils Percent Auto 70.5 % (45.5-73.1); Platelet Count Result 237 k/mm3 (150-375); Red Cell Distribution Width 13.3 % (11.5-14.5); White Blood Count 10.1 K/mm3 (4.5-10.0)
[2024-07-15 07:24] LABS: Alanine Aminotransferase 26 U/L (6-50); Albumin Level 4.3 g/dL (3.5-5.1); Alkaline Phosphatase 111 U/L (38-126); Anion Gap 10 mmol/L (4-12); Aspartate Amino Transferase 33 U/L (17-59); Bilirubin,Total 0.6 mg/dL (0.2-1.3); Blood Urea Nitrogen 42 mg/dL (9-20); Calcium 10.8 mg/dL (8.4-10.2); Carbon Dioxide 27 mmol/L (22-30); Chloride 96 mmol/L (98-107); Estimated CRCL calculation 24 ml/min; Estimated Glomerular Filt Rate 29; Glucose 145 mg/dL (65-110); Magnesium 1.8 mg/dL (1.6-2.3); Potassium 3.9 mmol/L (3.4-5.0); Sodium 133 mmol/L (137-145)
[2024-07-15 08:02] LABS: Glucose Point of Care 144 mg/dl (65-105)
[2024-07-15] MEDS: TICAGRELOR 60 MG TABLET PO ×2 (08:55→22:17)
[2024-07-15] MEDS: ROSUVASTATIN 20 MG TABLET 40 MG PO (08:55)
[2024-07-15] MEDS: PENTOXIFYLLINE 400 MG TABCR PO ×2 (08:55→17:24)
[2024-07-15] MEDS: MIDODRINE HCL 2.5 MG TABLET 10 MG PO ×2 (08:55→17:25)
[2024-07-15] MEDS: allopurinoL 300 MG TABLET PO (08:55)
[2024-07-15] MEDS: PANTOPRAZOLE 40 MG TABLET PO (08:55)
[2024-07-15] MEDS: ASPIRIN 81 MG ENTERIC TABLET PO (08:55)
[2024-07-15] MEDS: carvediloL 6.25 MG TABLET PO (08:57)
--- NOTE | 2024-07-15 09:10 | PC.NURSE ---
To Cardiac Cath via stretcher.
--- NOTE | 2024-07-15 09:12 | P.PNIM_ITS ---
Progress Note: A&P Assessment and Plan (1) Light-headedness: Code(s): R42 - Dizziness and giddiness Status: Acute Assessment and Plan: * Orthostatic blood pressure q shift: Positive this morning * His symptoms are most consistent with orthostatic hypotension, and his orthostatic vital signs are positive. * Maintain adequate hydration * DEAN hose and abdominal binder * Caution when transitioning from sitting or lying to standing, fall precaution due to patient Brilinta he was educated on the port and in his CT of his head. * Increase Midodrine 10 mg PO TID. * Cardiology consult * echocardiogram shows EF of over 70% * Patient started back on beta-blockers due to being tachycardic (2) Exertional dyspnea: Code(s): R06.09 - Other forms of dyspnea Status: Acute Assessment and Plan: * monitor symptoms (3) CAD (coronary artery disease): Qualifiers: Coronary Disease-Associated Artery/Lesion type: [place] artery [place] vs. transplanted heart: [place] heart Associated angina: without angina Qualified Code(s): I25.10 - Atherosclerotic heart disease of [place] coronary artery without angina pectoris Code(s): I25.10 - Atherosclerotic heart disease of [place] coronary artery without angina pectoris Status: Acute Assessment and Plan: * Recent stress echocardiogram showed no evidence of ischemia and LVEF was normal. * Continue ASA, Brilinta 60mg b.i.d. (per [facility]) * Continue statin * Risk factor modification for CAD * Patient had two episodes of 17 beat runs of Vtach. Patient reports feeling heart race during those times. EKG obtained showed HR 104, QTc [address] with QRS changes from narrow complexes to left bundle branch block. * Cardiology saw patient and added Carvedilol 6.25 mg PO BID. * Trop <0.012 * 07 15 cardiac catheterization no new cardiac stents placed, old cardiac stents look good (4) JOEY (acute kidney injury): Code(s): N17.9 - Acute kidney failure, unspecified Status: Acute Assessment and Plan: improving * In October of this year his SCr was 1.3 and it has gradually increased. * 07/13/24: BUN 27, Creatinine 2.00, and GFR 33. * 07/12/24: BUN 30, Creatinine 2.10, and GFR 31. * 07/11/24: BUN 31, Creatinine 2.20, and GFR 29. * 07/10/24: BUN 41, Creatinine 2.30, and GFR 28. * Encourage hydration. nephrology consulted pending recommendations (5) Chronic kidney disease, stage 3a: Code(s): N18.31 - Chronic kidney disease, stage 3a Status: Acute Assessment and Plan: * 07/13/24: BUN 27, Creatinine 2.00, and GFR 33. * 07/12/24: BUN 30, Creatinine 2.10, and GFR 31. * 07/11/24: BUN 31, Creatinine 2.20, and GFR 29. * 07/10/24: BUN 41, Creatinine 2.30, and GFR 28. * Encourage hydration. (6) Hypomagnesemia: Code(s): E83.42 - Hypomagnesemia Status: Acute Assessment and Plan: * Magnesium 1.6. * Magnesium Sulfate 2 gm IVPB x 1 given. * Monitor labs. (7) GERD (gastroesophageal reflux disease): Code(s): K21.9 - Gastro-esophageal reflux disease without esophagitis Status: Acute Assessment and Plan: * Pantoprazole 40 mg PO daily. Plan nephrology consulted JOEY, no improvement in orthostatic hypotension with midodrine Time Spent With Patient Time with patient: Greater than 35 minutes Subjective Date/time seen: 07/15/24 09:12 Interval history: midodrine increased yesterday afternoon, repeat positive orthostatics this morning, plan for cardiac catheterization today no blockage found, no new stents placed cardiology recommending Nephrology for JOEY Review of Systems Review of Systems: lightheadedness, shortness of breath All systems reviewed & are unremarkable except as noted in HPI and below Exam Narrative: laying in a stretcher Const: General: cooperative, comfortable, no acute distress, well developed, alert, awake, ill appearing chronically and average body habitus Nutritional Appearance: average body habitus Orientation/consciousness: patient oriented x3 HENMT: Head: normal to inspection, normocephalic and atraumatic Ears: hearing grossly normal bilaterally Face/Nose/Sinus: normal facial exam Face and sinus: normal facial exam Eyes: General: appearance normal, both eyes and all related structures Pupils: Equal, round and reactive pupils present EOM: EOMs intact bilaterally Neck: Neck: full ROM, no lymphadenopathy and no JVD Thyroid: thyroid normal Lymphatic: no lymphadenopathy noted Resp: Effort & Inspection: normal respiratory effort and able to speak in complete sentences Auscultation: clear to auscultation bilaterally Cardio: Jugular venous distension: no JVD Rate: regular rate and tachycardic Rhythm: regular rhythm Heart sounds: S1 normal heart sound present and S2 normal heart sound present GI: Inspection: obesity Auscultation: normal bowel sounds : General: Yes deferred Skin: General skin exam: no rashes or lesions noted Rashes: no rashes Wounds: no wounds Neuro: General: patient oriented x3 and CN's II-XI intact bilaterally Cranial nerves: Yes CN's II-XII intact bilaterally and Yes Equal, round and reactive pupils present Cognition (Neuro): normal cognition Speech: normal speech Gait exam (Neuro): Normal gait present Motor exam (neuro): 5/5 motor strength present throughout Extrem: General: normal to inspection, full ROM, no joint enlargement and no pedal edema Psych: Mental Status: mental status grossly normal Affect: normal affect Objective Data Vital Signs Vital Signs: Vital Signs - 24 hr 07/14/24 12:00 07/14/24 12:02 07/14/24 13:15 Temperature 98.0 F Pulse Rate 110 H 114 H Respiratory Rate 16 Blood Pressure 143/62 H 81/46 L Pulse Oximetry 96 Oxygen Delivery 07/14/24 16:00 07/14/24 16:00 07/14/24 20:00 Temperature 97.4 F L 97.6 F Pulse Rate 100 104 H 88 Respiratory Rate 16 16 Blood Pressure 126/55 L 115/60 Pulse Oximetry 98 98 Oxygen Delivery 07/14/24 20:00 07/14/24 20:27 07/14/24 20:28 Temperature 97.6 F Pulse Rate 88 Respiratory Rate 16 Blood Pressure 115/60 85/51 L 80/43 L Pulse Oximetry 98 Oxygen Delivery 07/14/24 21:19 07/14/24 23:13 07/14/24 20:00 Temperature 96.9 F L Pulse Rate 92 96 Respiratory Rate 16 Blood Pressure 119/55 L Pulse Oximetry 97 Oxygen Delivery Room Air 07/15/24 03:29 07/14/24 20:00 07/15/24 00:00 Temperature 97.2 F L Pulse Rate 83 87 85 Respiratory Rate 16 Blood Pressure 118/56 L Pulse Oximetry 98 Oxygen Delivery 07/15/24 04:00 07/15/24 08:00 07/15/24 08:57 Temperature 97.7 F Pulse Rate 79 112 H 105 H Respiratory Rate 18 Blood Pressure 125/66 Pulse Oximetry 98 Oxygen Delivery Intake/Output Intake/Output: Intake & Output 07/12/24 07/13/24 07/14/24 07/15/24 23:59 23:59 23:59 23:59 Intake Total 1840 1270 920 240 Output Total 350 850 Balance 1490 420 920 240 Meds/Results Medications: Active Medications Generic Name Dose Route Start Last Admin Trade Name Freq PRN Reason Stop Dose Admin Allopurinol 300 mg 07/11/24 09:00 07/15/24 08:55 Allopurinol 300 Mg Tablet PO 300 mg DAILY CLARISSA Administration Alprazolam 0.5 mg 07/10/24 22:47 07/14/24 21:18 Alprazolam (*Crx) 0.5 Mg Tablet PO 0.5 mg TID PRN Administration Anxiety Aspirin 81 mg 07/11/24 09:00 07/15/24 08:55 Aspirin 81 Mg Enteric Tablet PO 81 mg DAILY CLARISSA Administration Carvedilol 6.25 mg 07/13/24 14:00 07/15/24 08:57 Carvedilol 6.25 Mg Tablet PO 6.25 mg Q12HR CLARISSA Administration Docusate Sodium 100 mg 07/12/24 17:11 07/12/24 17:31 Docusate Sodium 100 Mg Capsule PO 100 mg Q12H PRN Administration Constipation Famotidine 20 mg 07/12/24 17:00 07/14/24 16:58 Famotidine 20 Mg Tablet PO 20 mg 1700 CLARISSA Administration Midodrine 10 mg 07/14/24 17:00 07/15/24 08:55 Midodrine Hcl 2.5 Mg Tablet PO 10 mg TID CLARISSA Administration Miscellaneous Information 0 each 07/10/24 00:01 07/11/24 00:26 Kerendia = Nonformulary. Can Pt Use From Home? XX 08/09/24 00:00 Not Given CLARIFY CLARISSA Nitroglycerin 0.4 mg 07/11/24 19:56 Nitroglycerin Sl 0.4 Mg Tablet SUBLINGUAL Q5MIN PRN Chest Pain Nortriptyline HCl 25 mg 07/10/24 21:00 07/14/24 21:18 Nortriptyline Hcl 25 Mg Capsule PO 25 mg QHS CLARISSA Administration Pantoprazole Sodium 40 mg 07/11/24 09:00 07/15/24 08:55 Pantoprazole 40 Mg Tablet PO 40 mg DAILY CLARISSA Administration Pentoxifylline 400 mg 07/11/24 09:00 07/15/24 08:55 Pentoxifylline 400 Mg Tabcr PO 400 mg TID CLARISSA Administration Rosuvastatin Calcium 40 mg 07/11/24 09:00 07/15/24 08:55 Rosuvastatin 20 Mg Tablet PO 40 mg DAILY CLARISSA Administration Ticagrelor 60 mg 07/10/24 21:00 07/15/24 08:55 Ticagrelor 60 Mg Tablet PO 60 mg Q12HR CLARISSA Administration Radiology Results: ITS Impressions Head CT 07/10/24 17:22 IMPRESSION: No acute intracranial process. Chest X-Ray 07/10/24 17:51 IMPRESSION: No acute cardiopulmonary process. Chest CTA 07/10/24 19:38 IMPRESSION: No CT evidence of acute pulmonary embolus. No acute process detected in the chest. ADDENDUM: 07/10/24 1950 1.7 cm right thyroid nodule, consider nonemergent outpatient thyroid ultrasound for further evaluation. Renal Ultrasound 07/11/24 08:35 IMPRESSION: Bilateral lobation is noted. Diverticulum to the left side of the urinary bladder. Labs Labs: Laboratory Results - last 24 hr 07/14/24 07/14/24 07/14/24 11:42 16:44 20:14 WBC RBC Hgb Hct MCV MCH MCHC RDW Plt Count MPV Immature Gran % (Auto) Neut % (Auto) Lymph % (Auto) Becker % (Auto) Eos % (Auto) Baso % (Auto) Lymph # (Auto) Becker # (Auto) Eos # (Auto) Baso # (Auto) Abs Immat Gran (auto) Absolute Neuts (auto) Absolute Nucleated RBC Nucleated RBC % Sodium Potassium Chloride Carbon Dioxide Anion Gap BUN Creatinine Estim Creat Clear Calc Estimated GFR Glucose POC Capillary Glucose 138 H 162 H 129 H Calcium Magnesium Total Bilirubin AST ALT Alkaline Phosphatase Total Protein Albumin 07/15/24 07/15/24 06:51 07:54 WBC 10.1 H RBC 4.20 L Hgb 13.1 L Hct 38.0 L MCV 90.5 MCH 31.2 MCHC 34.5 RDW 13.3 Plt Count 237 MPV 10.7 H Immature Gran % (Auto) 0.6 H Neut % (Auto) 70.5 Lymph % (Auto) 18.4 Becker % (Auto) 7.6 Eos % (Auto) 2.2 Baso % (Auto) 0.7 Lymph # (Auto) 1.85 Becker # (Auto) 0.8 H Eos # (Auto) 0.2 Baso # (Auto) 0.1 Abs Immat Gran (auto) 0.06 H Absolute Neuts (auto) 7.1 H Absolute Nucleated RBC 0.000 Nucleated RBC % 0.0 Sodium 133 L Potassium 3.9 Chloride 96 L Carbon Dioxide 27 Anion Gap 10 BUN 42 H D Creatinine 2.20 H Estim Creat Clear Calc 24 Estimated GFR 29 L Glucose 145 H POC Capillary Glucose 144 H Calcium 10.8 H Magnesium 1.8 Total Bilirubin 0.6 AST 33 ALT 26 Alkaline Phosphatase 111 Total Protein 8.0 Albumin 4.3 Quality VTE Prophylaxis VTE prophylaxis: mechanical ordered and pharmacologic ordered
--- NOTE | 2024-07-15 09:29 | WPDHPUPDATE1 ---
History and Physical Update Update Date/Time: 07/15/24 09:29 History and Physical has been reviewed, including an updated exam of the patient. There are NO changes in the patient's condition. Risks, benefits, and alternatives have been discussed and questions answered. Patient agrees to proceed with procedure.
--- NOTE | 2024-07-15 09:29 | WPDMODSED ---
Moderate Sedation Note-Pt Data Patient Data Diagnosis: Coronary artery disease Present Complaint: Coronary artery disease Procedure to be performed/Plan: Coronary angiography, left heart cath, +/- PCI Allergies Allergy/AdvReac Type Severity Reaction Status Date / Time dapagliflozin [From Farxinm] AdvReac Severe Hallucinati Verified 07/10/24 20:42 ng metformin AdvReac Severe Diarrhea Verified 07/10/24 20:42 semaglutide [From [facility]] AdvReac Intermediate Confusion Verified 07/10/24 20:42 Home Medications Medication Instructions Recorded Confirmed Type nitroglycerin 0.3 mg sublingual 0.3 mg sublingual PRN PRN Chest 12/05/21 07/10/24 History tablet Pain ticagrelor 60 mg tablet (Brilinta) 60 mg PO BID 12/05/21 07/10/24 History aspirin 81 mg tablet,delayed 81 mg PO DAILY 12/06/21 07/10/24 History release (Adult Aspirin Regimen) chlorthalidone 25 mg tablet 25 mg PO DAILY 04/16/23 07/10/24 History blood sugar diagnostic (Accu-Chek #400 ea 07/01/23 07/10/24 Rx Aaliyah Plus test strips) rosuvastatin 40 mg tablet 40 mg PO DAILY 10/13/23 07/10/24 History alprazolam 0.5 mg tablet 0.5 mg PO TID PRN Anxiety #20 tabs 03/10/24 07/10/24 Rx nortriptyline 25 mg capsule 25 mg PO QHS #90 caps 03/15/24 07/10/24 Rx finerenone 10 mg tablet (Kerendia) 10 mg PO DAILY #30 tabs 05/10/24 07/10/24 Rx telmisartan 80 mg tablet 80 mg PO DAILY 06/08/24 07/10/24 History allopurinol 300 mg tablet 300 mg PO DAILY #90 tabs 06/15/24 07/10/24 Rx pantoprazole 40 mg tablet,delayed 40 mg PO DAILY #90 tabs 06/26/24 07/10/24 Rx release famotidine 20 mg tablet 20 mg PO DAILY 07/06/24 07/10/24 History pentoxifylline 400 mg 400 mg PO TID 07/06/24 07/10/24 History tablet,extended release calcium carbonate (Tums) 200 mg PO TID PRN heart burn 07/11/24 07/11/24 History amlodipine 2.5 mg tablet 2.5 mg PO DAILY 07/12/24 07/12/24 History carvedilol 12.5 mg tablet (Coreg) 12.5 mg PO BID 07/12/24 07/12/24 History Current Medications: Active Medications Allopurinol (Allopurinol 300 Mg Tablet) 300 mg PO DAILY [facility] Last Admin: 07/15/24 08:55 Dose: 300 mg Alprazolam (Alprazolam (*Crx) 0.5 Mg Tablet) 0.5 mg PO TID PRN PRN Reason: Anxiety Last Admin: 07/14/24 21:18 Dose: 0.5 mg Aspirin (Aspirin 81 Mg Enteric Tablet) 81 mg PO DAILY [facility] Last Admin: 07/15/24 08:55 Dose: 81 mg Carvedilol (Carvedilol 6.25 Mg Tablet) 6.25 mg PO Q12HR [facility] Last Admin: 07/15/24 08:57 Dose: 6.25 mg Docusate Sodium (Docusate Sodium 100 Mg Capsule) 100 mg PO Q12H PRN PRN Reason: Constipation Last Admin: 07/12/24 17:31 Dose: 100 mg Famotidine (Famotidine 20 Mg Tablet) 20 mg PO 1700 [facility] Last Admin: 07/14/24 16:58 Dose: 20 mg Midodrine (Midodrine Hcl 2.5 Mg Tablet) 10 mg PO TID [facility] Last Admin: 07/15/24 08:55 Dose: 10 mg Miscellaneous Information (Kerendia = Nonformulary. Can Pt Use From Home?) 0 each XX CLARIFY [facility] Stop: 08/09/24 00:00 Last Admin: 07/11/24 00:26 Dose: Not Given Nitroglycerin (Nitroglycerin Sl 0.4 Mg Tablet) 0.4 mg SUBLINGUAL Q5MIN PRN PRN Reason: Chest Pain Nortriptyline HCl (Nortriptyline Hcl 25 Mg Capsule) 25 mg PO QHS [facility] Last Admin: 07/14/24 21:18 Dose: 25 mg Pantoprazole Sodium (Pantoprazole 40 Mg Tablet) 40 mg PO DAILY [facility] Last Admin: 07/15/24 08:55 Dose: 40 mg Pentoxifylline (Pentoxifylline 400 Mg Tabcr) 400 mg PO TID [facility] Last Admin: 07/15/24 08:55 Dose: 400 mg Rosuvastatin Calcium (Rosuvastatin 20 Mg Tablet) 40 mg PO DAILY [facility] Last Admin: 07/15/24 08:55 Dose: 40 mg Ticagrelor (Ticagrelor 60 Mg Tablet) 60 mg PO Q12HR [facility] Last Admin: 07/15/24 08:55 Dose: 60 mg Sedation/Anesthesia: No previous sedation/anesthesia problems (including family history). [facility] Past Medical History Medical History 1st MTP arthritis Adenomatous colon polyp Anemia Arthritis BMI 25.0-25.9,adult BMI 25.0-25.9,adult BMI 26.0-26.9,adult BMI 26.0-26.9,adult BMI 27.0-27.9,adult BMI between 19-24,adult CAD (coronary artery disease) Carotid stenosis, asymptomatic h/o intracranial cerebral stenosis, evaluated at [place] 05/2019, thought not to be symptomatic cont med tx. Carpal tunnel syndrome on both sides Cerebrovascular disease Chills Chronic pain Collagenous colitis Colonoscopy planned Depression Diabetic polyneuropathy Dysphagia Fever GERD (gastroesophageal reflux disease) Glaucoma Gout (~08/2019) Groin discomfort Heart disease High cholesterol History of blood clots History of prostate cancer HLD (hyperlipidemia) HTN (hypertension) Hyponatremia Left shoulder pain Light headedness Lumbar spine pain Microscopic colitis Overweight Personal history of DVT (deep vein thrombosis) Prostate cancer Right shoulder pain Shortness of breath SOB (shortness of breath) Spasmodic bladder Stenosis of infrarenal abdominal aorta due to arteriosclerosis Says his aorta is mildly enlarged Tendinitis of both rotator cuffs Trochanteric bursitis, left hip Trochanteric bursitis, right hip Type 2 diabetes mellitus without complications Wears glasses Surgical History Surgical History H/O cardiac catheterization H/O carotid endarterectomy (~10/2022) H/O cystoscopy H/O heart artery stent H/O rectal polypectomy History of angioplasty History of cataract surgery History of colonoscopy 2019 History of prostatectomy Had prostate cancer, status post prostatectomy and later radiation therapy. Has an implanted device to help with urinary incontinence. History of rotator cuff surgery Hx of endarterectomy S/P arthroscopic surgery of left knee Family History Family History Father , of lung cancer age 83 Hypertension Lung cancer Sibling Hypertension Mother Family history of malignant neoplasm of breast in first degree relative Breast cancer of breast cancer age 37 Sibling No problems noted. Other Diabetes mellitus Family history of cardiovascular disease Family history of elevated blood lipids Family history of malignant neoplasm Social History Social History Social History: The patient has 2 sons and is . He does not have a durable power criminal defense attorney. Wishes to be a full code. 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 Smoking packs per day: 1 Smoking cigarettes per day: 20.0 Years smoked: 15 Smoking pack-years: 15.00 Smoking status: Former smoker Tobacco type: cigarettes Second hand tobacco smoke exposure: No Smoking end date: 08/31/82 Alcohol intake: current Drinks per week: 14 Substance use: former Substance use type: marijuana Other substance usage details: no beer in over a week; no marijuana in 9 months Do You Feel Safe in your Home?: Yes Lack of Transportation: No Lack of Food: Never True Current Housing: I Have Housing Concerned About Future Housing: No Difficulty Paying Gas/Electric Bills: No Difficulty Paying for Meds: No Currently Unemployed: No Education: Trade/Vocational Certificate Difficulty w/ Childcare or Family Care: No Living arrangements: alone Occupation/Education: retired Additional occupation/education comments: 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 Gender identity (if verbalized by the patient): Male Spiritual care concerns: No Agree to blood products: Yes Mod Sed Physical Exam Physical Exam Pre Procedural Exam: Normal: Appearance, Lungs, Heart Rate, Heart Rhythm, Neuro Exam, Extremities and Skin Hours since solid foods: 12 Hours since liquid intake: 8 Mallampati Classification: class III Internal Medicine - PN: Obj Da Vital Signs Vital Signs: Vital Signs - 24 hr 07/14/24 12:00 07/14/24 12:02 07/14/24 13:15 Temperature 36.7 C Pulse Rate 110 H 114 H Respiratory Rate 16 Blood Pressure 143/62 H 81/46 L Pulse Oximetry 96 Oxygen Delivery 07/14/24 16:00 07/14/24 16:00 07/14/24 20:00 Temperature 36.3 C L 36.4 C Pulse Rate 100 104 H 88 Respiratory Rate 16 16 Blood Pressure 126/55 L 115/60 Pulse Oximetry 98 98 Oxygen Delivery 07/14/24 20:00 07/14/24 20:27 07/14/24 20:28 Temperature 36.4 C Pulse Rate 88 Respiratory Rate 16 Blood Pressure 115/60 85/51 L 80/43 L Pulse Oximetry 98 Oxygen Delivery 07/14/24 21:19 07/14/24 23:13 07/14/24 20:00 Temperature 36.1 C L Pulse Rate 92 96 Respiratory Rate 16 Blood Pressure 119/55 L Pulse Oximetry 97 Oxygen Delivery Room Air 07/15/24 03:29 07/14/24 20:00 07/15/24 00:00 Temperature 36.2 C L Pulse Rate 83 87 85 Respiratory Rate 16 Blood Pressure 118/56 L Pulse Oximetry 98 Oxygen Delivery 07/15/24 04:00 07/15/24 08:00 07/15/24 08:57 Temperature 36.5 C Pulse Rate 79 112 H 105 H Respiratory Rate 18 Blood Pressure 125/66 Pulse Oximetry 98 Oxygen Delivery Intake/Output Intake/Output: Intake & Output 07/12/24 07/13/24 07/14/24 07/15/24 23:59 23:59 23:59 23:59 Intake Total 1840 1270 920 240 Output Total 350 850 Balance 1490 420 920 240 Meds/Results Medications: Active Medications Generic Name Dose Route Start Last Admin Trade Name Modeq PRN Reason Stop Dose Admin Allopurinol 300 mg 07/11/24 09:00 07/15/24 08:55 Allopurinol 300 Mg Tablet PO 300 mg DAILY CLARISSA Administration Alprazolam 0.5 mg 07/10/24 22:47 07/14/24 21:18 Alprazolam (*Crx) 0.5 Mg Tablet PO 0.5 mg TID PRN Administration Anxiety Aspirin 81 mg 07/11/24 09:00 07/15/24 08:55 Aspirin 81 Mg Enteric Tablet PO 81 mg DAILY CLARISSA Administration Carvedilol 6.25 mg 07/13/24 14:00 07/15/24 08:57 Carvedilol 6.25 Mg Tablet PO 6.25 mg Q12HR CLARISSA Administration Docusate Sodium 100 mg 07/12/24 17:11 07/12/24 17:31 Docusate Sodium 100 Mg Capsule PO 100 mg Q12H PRN Administration Constipation Famotidine 20 mg 07/12/24 17:00 07/14/24 16:58 Famotidine 20 Mg Tablet PO 20 mg 1700 CLARISSA Administration Midodrine 10 mg 07/14/24 17:00 07/15/24 08:55 Midodrine Hcl 2.5 Mg Tablet PO 10 mg TID CLARISSA Administration Miscellaneous Information 0 each 07/10/24 00:01 07/11/24 00:26 Kerendia = Nonformulary. Can Pt Use From Home? XX 08/09/24 00:00 Not Given CLARIFY CLARISSA Nitroglycerin 0.4 mg 07/11/24 19:56 Nitroglycerin Sl 0.4 Mg Tablet SUBLINGUAL Q5MIN PRN Chest Pain Nortriptyline HCl 25 mg 07/10/24 21:00 07/14/24 21:18 Nortriptyline Hcl 25 Mg Capsule PO 25 mg QHS CLARISSA Administration Pantoprazole Sodium 40 mg 07/11/24 09:00 07/15/24 08:55 Pantoprazole 40 Mg Tablet PO 40 mg DAILY CLARISSA Administration Pentoxifylline 400 mg 07/11/24 09:00 07/15/24 08:55 Pentoxifylline 400 Mg Tabcr PO 400 mg TID CLARISSA Administration Rosuvastatin Calcium 40 mg 07/11/24 09:00 07/15/24 08:55 Rosuvastatin 20 Mg Tablet PO 40 mg DAILY CLARISSA Administration Ticagrelor 60 mg 07/10/24 21:00 07/15/24 08:55 Ticagrelor 60 Mg Tablet PO 60 mg Q12HR CLARISSA Administration Radiology Results: ITS Impressions Head CT 07/10/24 17:22 IMPRESSION: No acute intracranial process. Chest X-Ray 07/10/24 17:51 IMPRESSION: No acute cardiopulmonary process. Chest CTA 07/10/24 19:38 IMPRESSION: No CT evidence of acute pulmonary embolus. No acute process detected in the chest. ADDENDUM: 07/10/24 1950 1.7 cm right thyroid nodule, consider nonemergent outpatient thyroid ultrasound for further evaluation. Renal Ultrasound 07/11/24 08:35 IMPRESSION: Bilateral lobation is noted. Diverticulum to the left side of the urinary bladder. Labs 07/15/24 06:51 07/15/24 06:51 Labs: Laboratory Results - last 24 hr 07/14/24 07/14/24 07/14/24 11:42 16:44 20:14 WBC RBC Hgb Hct MCV MCH MCHC RDW Plt Count MPV Immature Gran % (Auto) Neut % (Auto) Lymph % (Auto) Hart % (Auto) Eos % (Auto) Baso % (Auto) Lymph # (Auto) Hart # (Auto) Eos # (Auto) Baso # (Auto) Abs Immat Gran (auto) Absolute Neuts (auto) Absolute Nucleated RBC Nucleated RBC % Sodium Potassium Chloride Carbon Dioxide Anion Gap BUN Creatinine Estim Creat Clear Calc Estimated GFR Glucose POC Capillary Glucose 138 H 162 H 129 H Calcium Magnesium Total Bilirubin AST ALT Alkaline Phosphatase Total Protein Albumin 07/15/24 07/15/24 06:51 07:54 WBC 10.1 H RBC 4.20 L Hgb 13.1 L Hct 38.0 L MCV 90.5 MCH 31.2 MCHC 34.5 RDW 13.3 Plt Count 237 MPV 10.7 H Immature Gran % (Auto) 0.6 H Neut % (Auto) 70.5 Lymph % (Auto) 18.4 Hart % (Auto) 7.6 Eos % (Auto) 2.2 Baso % (Auto) 0.7 Lymph # (Auto) 1.85 Hart # (Auto) 0.8 H Eos # (Auto) 0.2 Baso # (Auto) 0.1 Abs Immat Gran (auto) 0.06 H Absolute Neuts (auto) 7.1 H Absolute Nucleated RBC 0.000 Nucleated RBC % 0.0 Sodium 133 L Potassium 3.9 Chloride 96 L Carbon Dioxide 27 Anion Gap 10 BUN 42 H D Creatinine 2.20 H Estim Creat Clear Calc 24 Estimated GFR 29 L Glucose 145 H POC Capillary Glucose 144 H Calcium 10.8 H Magnesium 1.8 Total Bilirubin 0.6 AST 33 ALT 26 Alkaline Phosphatase 111 Total Protein 8.0 Albumin 4.3 ASA Classification/Sedation ASA Classification/Sedation ASA Class: III Emergent: No Risks: Risks, benefits and alternatives explained and patient/family accepted plan for sedation. Patient re-evaluated immediately prior to sedation.
--- NOTE | 2024-07-15 09:30 | WPDCARDPROC ---
Cardiac Cath Procedure Note Date of procedure:: 07/15/24 Performing physician:: CATHETERIZATION LABORATORY REPORT Procedure Date: 07/15/2024 Operations Intelligence: Mariangel Palmer M.D., [facility]? Referring Physician: Dr. Euceda Anesthesia: Versed and Fentanyl were ordered and given in my presence at 09:30, procedure ended at 09:51. Supervision of nurse monitored moderate sedation with Versed and Fentanyl was provided for 21 minutes. Total of Versed 1mg and Fentanyl 75mcg were administered by the Shank Boner RN Isaac Anders. Pre-op Diagnosis: Coronary artery disease Post-op Diagnosis: 1. Non-obstructive coronary artery disease with patent LCX stent 2. Left ventricular end-diastolic pressure of 20mmHg Procedure(s): 1. Moderate sedation 2. Ultrasound-guided access of the right radial artery 3. Coronary angiography 4. Left heart cath Access Site: Right radial artery Brief History and Clinical Indications: Patient is a 73 year old male with CAD s/p prior PCI to LCX who is referred for [facility]. All risks, benefits and alternatives to left heart catheterization with or without percutaneous coronary intervention was discussed at length with the patient. Risk of complications including but not limited to bleeding, infection, arrhythmia, stroke, worsening kidney function, blood loss, groin hematoma, limb loss, emergency coronary artery bypass grafting, and even were discussed with the patient and all questions were answered. The patient understood and wished to proceed. Time out called, patient name, date of , medical record number, allergies, procedure performed, identify Operations Intelligence, patient and staff member concurred with accurate data, procedure carried on. Findings: LEFT HEART CATHETERIZATION FINDINGS: 1. Left main: The left main coronary artery is widely patent without any significant obstructive disease. 2. Left anterior descending: Mild disease in the proximal and mid RCA. No significant obstructive angiographic disease. The diagonal branch is a small caliber branch with luminal irregularities. 3. Ramus: Luminal irregularities. 3. Left circumflex: Patent stent in the proximal-mid LCX. The LCX has mild diffuse disease without any significant obstructive angiographic disease. 4. Right coronary artery: The RCA is the dominant vessel. The RCA is a calcified vessel. The RCA has mild diffuse disease without any significant obstructive angiographic disease. 5. Left ventricle: A. End-diastolic pressure 20 mmHg. B. LV gram deferred. C. No significant gradient across aortic valve on catheter pullback. Description of Procedure: Informed consent signed and placed in the chart. Patient transferred to clinical laboratory aides teacher room. Prepped and draped in usual sterile fashion. 2% lidocaine injected subcutaneously in right wrist area. 22-gauge venipuncture catheter used to access the right radial artery under ultrasound guidance. 6-FR slender sheath placed in right radial artery. Nitroglycerine and Verapamil were given intraarterial through the sheath. Versacore wire advanced under fluoroscopy 5F Tig 4 diagnostic catheter engaged Left Main Coronary Artery. 5F Tig 4 diagnostic catheter engaged Right Coronary Artery Multiple orthogonal angiogram obtained and reviewed 5F Pigtail diagnostic catheter crossed aortic valve to obtain LVEDP, LV angiogram deferred. Hemostasis was achieved by application of TR band. Disposition: Floor Plan: The patient will be monitored in the recovery area. Continue aggressive medical therapy and risk factor modification. ? Mariangel Palmer M.D. Interventional Cardiology
[2024-07-15] MEDS: SODIUM CHLORIDE 0.9% IV 1,000 ML 125 ML IV CONT (10:00)
--- NOTE | 2024-07-15 10:04 | PM.PNCARD ---
Progress Note: A&P Assessment and Plan (1) Orthostatic hypotension: Code(s): I95.1 - Orthostatic hypotension Status: Acute Assessment and Plan: His symptoms are most consistent with orthostatic hypotension, and his orthostatic vital signs are still positive. Midodrine is increased to 10mg TID. Given his hyperdynamic LV, beta-michell is needed. Maintain adequate hydration DEAN hose Caution when transitioning from sitting or lying to standing Can use abdominal binder if still having symptoms with the above interventions (2) JOEY (acute kidney injury): Code(s): N17.9 - Acute kidney failure, unspecified Status: Acute Assessment and Plan: He has been given IV fluids. Avoid nephrotoxic agents. Further workup and management per primary team. His JOEY has not significantly improved despite IVFs. Recommend Nephrology consultation. (3) Wide-complex tachycardia: Code(s): R00.0 - Tachycardia, unspecified Status: Acute Assessment and Plan: NSVT versus rate dependent bundle branch block. Coreg was resumed, however, given orthostasis, will switch Coreg to Metoprolol to allow more blood pressure room. LHC done 07/15 for chest pain showed non-obstructive CAD with patent LCX stent. (4) Coronary artery disease: Code(s): I25.10 - Atherosclerotic heart disease of [place] coronary artery without angina pectoris Status: Chronic Assessment and Plan: Stress echocardiogram in August 2023 showed no evidence of ischemia and LVEF was normal. Continue ASA, Brilinta 60mg BID (per [facility]) Continue statin Risk factor modification for CAD LHC done 07/15 for chest pain showed non-obstructive CAD with patent LCX stent. (5) Hypertension: Qualifiers: Hypertension type: primary hypertension Qualified Code(s): I10 - Essential (primary) hypertension Code(s): I10 - Essential (primary) hypertension Status: Acute Assessment and Plan: We may have to accept blood pressures slightly above goal in order to decrease orthostatic symptoms. (6) Mixed hyperlipidemia: Code(s): E78.2 - Mixed hyperlipidemia Status: Chronic Assessment and Plan: Continue Rosuvastatin. Plan Cardiology will sign off at this time. Please call us back if needed. Patient to follow up with his primary fruit dumper at [facility] after hospital discharge. Subjective Date/time seen: 07/15/24 10:04 Interval history: Reason for visit: HPI: Mitchell Freeman is a 73 year old male with coronary artery disease with PCI to the LCx/RICHARD x 1 in 2017, peripheral arterial disease, hypertension, hyperlipidemia, type 2 diabetes mellitus. He receives his cardiac care at [facility] and has been seen by Antonette Owens NP most recently and was doing well overall at that time. He comes to the hospital with a chief complaint of dizziness. He reports feeling dizzy and light headed when he stands up from a sitting or lying position. He has not had syncope. He also feels his heart racing after he sits down sometimes. He is not having any chest pain, shortness of breath, swelling, orthopnea. He feels well otherwise and does not have any other complaints. Date of service 07/13: Still dizzy upon standing. In further discussion, he is having some occasional chest pain at home which occurs with and without exertion and sometimes improved with nitroglycerin. Date of service 07/14: Yesterday he endorse some chest tightness which he has been having intermittently prior to coming to the hospital. Yesterday he was also noted to have ventricular tachycardia versus aberrantly conducted rhythm. He was recommended for left heart catheterization Date of service 07/15: Still having orthostatic symptoms. No chest pain. Review of Systems Review of Systems: All systems reviewed & are unremarkable except as noted in HPI and below (HPI) Exam Const: General: comfortable and no acute distress HENMT: Mouth: Yes moist mucous membranes Eyes: General: appearance normal, both eyes and all related structures Sclera: sclerae normal Resp: Effort & Inspection: normal respiratory effort Cardio: Rate: regular rate Rhythm: regular rhythm Skin: General skin exam: normal color Neuro: Speech: normal speech Psych: Mental Status: mental status grossly normal Affect: normal affect Objective Data Vital Signs Vital Signs: Vital Signs - 24 hr 07/14/24 12:00 07/14/24 12:02 07/14/24 13:15 Temperature 36.7 C Pulse Rate 110 H 114 H Respiratory Rate 16 Blood Pressure 143/62 H 81/46 L Pulse Oximetry 96 Oxygen Delivery 07/14/24 16:00 07/14/24 16:00 07/14/24 20:00 Temperature 36.3 C L 36.4 C Pulse Rate 100 104 H 88 Respiratory Rate 16 16 Blood Pressure 126/55 L 115/60 Pulse Oximetry 98 98 Oxygen Delivery 07/14/24 20:00 07/14/24 20:27 07/14/24 20:28 Temperature 36.4 C Pulse Rate 88 Respiratory Rate 16 Blood Pressure 115/60 85/51 L 80/43 L Pulse Oximetry 98 Oxygen Delivery 07/14/24 21:19 07/14/24 23:13 07/14/24 20:00 Temperature 36.1 C L Pulse Rate 92 96 Respiratory Rate 16 Blood Pressure 119/55 L Pulse Oximetry 97 Oxygen Delivery Room Air 07/15/24 03:29 07/14/24 20:00 07/15/24 00:00 Temperature 36.2 C L Pulse Rate 83 87 85 Respiratory Rate 16 Blood Pressure 118/56 L Pulse Oximetry 98 Oxygen Delivery 07/15/24 04:00 07/15/24 08:00 07/15/24 08:57 Temperature 36.5 C Pulse Rate 79 112 H 105 H Respiratory Rate 18 Blood Pressure 125/66 Pulse Oximetry 98 Oxygen Delivery 07/15/24 08:20 07/15/24 08:03 Temperature Pulse Rate 99 Respiratory Rate Blood Pressure Pulse Oximetry Oxygen Delivery Room Air Intake/Output Intake/Output: Intake & Output 07/12/24 07/13/24 07/14/24 07/15/24 23:59 23:59 23:59 23:59 Intake Total 1840 1270 920 240 Output Total 350 850 Balance 1490 420 920 240 Meds/Results Medications: Active Medications Generic Name Dose Route Start Last Admin Trade Name Freq PRN Reason Stop Dose Admin Allopurinol 300 mg 07/11/24 09:00 07/15/24 08:55 Allopurinol 300 Mg Tablet PO 300 mg DAILY CLARISSA Administration Alprazolam 0.5 mg 07/10/24 22:47 07/14/24 21:18 Alprazolam (*Crx) 0.5 Mg Tablet PO 0.5 mg TID PRN Administration Anxiety Aspirin 81 mg 07/11/24 09:00 07/15/24 08:55 Aspirin 81 Mg Enteric Tablet PO 81 mg DAILY CLARISSA Administration Docusate Sodium 100 mg 07/12/24 17:11 07/12/24 17:31 Docusate Sodium 100 Mg Capsule PO 100 mg Q12H PRN Administration Constipation Famotidine 20 mg 07/12/24 17:00 07/14/24 16:58 Famotidine 20 Mg Tablet PO 20 mg 1700 CLARISSA Administration Sodium Chloride 1,000 mls @ 125 mls/hr 07/15/24 09:54 Normal Saline Iv IV CONT 07/15/24 17:53 .Q8H ONE Metoprolol Tartrate 25 mg 07/15/24 21:00 Metoprolol Tartrate 25 Mg Tablet PO Q12HR [facility] Midodrine 10 mg 07/14/24 17:00 07/15/24 08:55 Midodrine Hcl 2.5 Mg Tablet PO 10 mg TID CLARISSA Administration Miscellaneous Information 0 each 07/10/24 00:01 07/11/24 00:26 Kerendia = Nonformulary. Can Pt Use From Home? XX 08/09/24 00:00 Not Given CLARIFY [facility] Nitroglycerin 0.4 mg 07/11/24 19:56 Nitroglycerin Sl 0.4 Mg Tablet SUBLINGUAL Q5MIN PRN Chest Pain Nortriptyline HCl 25 mg 07/10/24 21:00 07/14/24 21:18 Nortriptyline Hcl 25 Mg Capsule PO 25 mg QHS [facility] Administration Pantoprazole Sodium 40 mg 07/11/24 09:00 07/15/24 08:55 Pantoprazole 40 Mg Tablet PO 40 mg DAILY CLARISSA Administration Pentoxifylline 400 mg 07/11/24 09:00 07/15/24 08:55 Pentoxifylline 400 Mg Tabcr PO 400 mg TID [facility] Administration Rosuvastatin Calcium 40 mg 07/11/24 09:00 07/15/24 08:55 Rosuvastatin 20 Mg Tablet PO 40 mg DAILY CLARISSA Administration Ticagrelor 60 mg 07/10/24 21:00 07/15/24 08:55 Ticagrelor 60 Mg Tablet PO 60 mg Q12HR CLARISSA Administration Radiology Results: ITS Impressions Head CT 07/10/24 17:22 IMPRESSION: No acute intracranial process. Chest X-Ray 07/10/24 17:51 IMPRESSION: No acute cardiopulmonary process. Chest CTA 07/10/24 19:38 IMPRESSION: No CT evidence of acute pulmonary embolus. No acute process detected in the chest. ADDENDUM: 07/10/24 1950 1.7 cm right thyroid nodule, consider nonemergent outpatient thyroid ultrasound for further evaluation. Renal Ultrasound 07/11/24 08:35 IMPRESSION: Bilateral lobation is noted. Diverticulum to the left side of the urinary bladder. Labs Labs: Laboratory Results - last 24 hr 07/14/24 07/14/24 07/14/24 11:42 16:44 20:14 WBC RBC Hgb Hct MCV MCH MCHC RDW Plt Count MPV Immature Gran % (Auto) Neut % (Auto) Lymph % (Auto) [place] % (Auto) Eos % (Auto) Baso % (Auto) Lymph # (Auto) [place] # (Auto) Eos # (Auto) Baso # (Auto) Abs Immat Gran (auto) Absolute Neuts (auto) Absolute Nucleated RBC Nucleated RBC % Sodium Potassium Chloride Carbon Dioxide Anion Gap BUN Creatinine Estim Creat Clear Calc Estimated GFR Glucose POC Capillary Glucose 138 H 162 H 129 H Calcium Magnesium Total Bilirubin AST ALT Alkaline Phosphatase Total Protein Albumin 07/15/24 07/15/24 06:51 07:54 WBC 10.1 H RBC 4.20 L Hgb 13.1 L Hct 38.0 L MCV 90.5 MCH 31.2 MCHC 34.5 RDW 13.3 Plt Count 237 MPV 10.7 H Immature Gran % (Auto) 0.6 H Neut % (Auto) 70.5 Lymph % (Auto) 18.4 [place] % (Auto) 7.6 Eos % (Auto) 2.2 Baso % (Auto) 0.7 Lymph # (Auto) 1.85 [place] # (Auto) 0.8 H Eos # (Auto) 0.2 Baso # (Auto) 0.1 Abs Immat Gran (auto) 0.06 H Absolute Neuts (auto) 7.1 H Absolute Nucleated RBC 0.000 Nucleated RBC % 0.0 Sodium 133 L Potassium 3.9 Chloride 96 L Carbon Dioxide 27 Anion Gap 10 BUN 42 H D Creatinine 2.20 H Estim Creat Clear Calc 24 Estimated GFR 29 L Glucose 145 H POC Capillary Glucose 144 H Calcium 10.8 H Magnesium 1.8 Total Bilirubin 0.6 AST 33 ALT 26 Alkaline Phosphatase 111 Total Protein 8.0 Albumin 4.3
--- NOTE | 2024-07-15 11:00 | P.CONNP_ITS ---
Assessment and Plan Assessment and plan (1) JOEY (acute kidney injury): Code(s): N17.9 - Acute kidney failure, unspecified Status: Acute Assessment and Plan: * elevated above baseline on admission * possibly related to fluctuating hemodynamics/orthostatic hypotension * now complicate by contrast exposure x 2 (CT chest PE protocol and cardiac cath) * check renal ultrasound, urine studies, and CPK * follow trend of repeat labs and UOP (2) Stage 3b chronic kidney disease: Code(s): N18.32 - Chronic kidney disease, stage 3b Status: Chronic Assessment and Plan: * baseline creatinine runs ~ 1.3 - 8mg/dl in the last year * presumably due to HTN, diabetes, vascular disease and age-related change (3) Light-headedness: Code(s): R42 - Dizziness and giddiness Status: Acute Assessment and Plan: * consistent with orthostatic hypotension * agree with adequate hydration * DEAN hose and abdominal binder use * on midodrine therapy * Cardiology following * s/p cardiac catheterization - findings noted * follow repeat orthostatic BPs I will continue to follow the patient with you while he remains hospitalized and make further recommendations as deemed necessary. Thank you for allowing me to participate in the care of this patient. History of Present Illness Reason for Consult Consult date: 07/15/24 Reason for consult: acute renal failure (on chronic kidney disease) Chief Complaint Chief complaint: Exertional dyspnea History of Present Illness Narrative: the patient is a 73-year-old male with extensive past medical history as outlined below who presented to [facility] Emergency room with compla ints of dizziness. The patient states that he has been feeling dizzy and lightheaded whenever he st ands from a seated or standing position for last several days if not longer. He denies any overt syncope be does state that he feels palpitations when he sits down sometimes. He gave no acute complaints of chest pain, shortness of breath, swelling/edema, orthopnea, or any other subjective symptoms. As the symptoms continued to persist if not worsened, he presented to the emergency room for further assessment. Workup and evaluation in the emergency room did demonstrate the patient be in mild distress secondary to dizziness /lightheadedness. On further evaluation, he was demonstrated to have orthostatic vital signs as well. Routine blood test demonstrated labs that her fairly unremarkable aside from the fact that her as kidney function was slightly worse in comparison to baseline. He received IV fluids based on his orthostatics symptoms with some mild improvement but then he continued to have dizziness and lightheadedness on every tempted to transition from a seated position to the upright position. Given the persistence of the symptoms as well as the fact the patient is on multiple blood pressure medications, he was admitted to hospital for further evaluation and therapy. Since his admission, his orthostatics symptoms have improved with a combination of IV fluids, reducing his blood pressure medications, and the use of Dean hose as well as abdominal binder and midodrine therapy. He has been seen in consultation by Cardiology and given the fact that he was also having some issues with arrhythmias and changes on his echo cardio g, he underwent a cardiac catheterization earlier today with the results noted. Renal consultation was requested due to acute kidney injury on top of his baseline chronic kidney disease. The patient follows with Dr. Clemente Garibay for management of his chronic kidney disease. His baseline creatinine runs around 1.3-1.8 mg/dL in the last year so if not longer and is thought to be secondary due to a combination of his hypertension, diabetes, vascular disease, and age- related change. On admission, his creatinine was up to 2.2 mg/dL and since his hospitalization, his creatinine has never really improved back to its previous baseline. In spite of the fact that his creatinine is elevated above baseline, he has no critical electrolyte abnormalities, volume overload, metabolic acidosis, or evidence of uremia. Currently, at the time of my visit, he appears to be in no acute distress. Review of Systems Review of Systems: As per HPI. [facility] Past Medical History Medical History 1st MTP arthritis Adenomatous colon polyp Anemia Arthritis BMI 25.0-25.9,adult BMI 25.0-25.9,adult BMI 26.0-26.9,adult BMI 26.0-26.9,adult BMI 27.0-27.9,adult BMI between 19-24,adult CAD (coronary artery disease) Carotid stenosis, asymptomatic h/o intracranial cerebral stenosis, evaluated at [place] 05/2019, thought not to be symptomatic cont med tx. Carpal tunnel syndrome on both sides Cerebrovascular disease Chills Chronic pain Collagenous colitis Colonoscopy planned Depression Diabetic polyneuropathy Dysphagia Fever GERD (gastroesophageal reflux disease) Glaucoma Gout (~08/2019) Groin discomfort Heart disease High cholesterol History of blood clots History of prostate cancer HLD (hyperlipidemia) HTN (hypertension) Hyponatremia Left shoulder pain Light headedness Lumbar spine pain Microscopic colitis Overweight Personal history of DVT (deep vein thrombosis) Prostate cancer Right shoulder pain Shortness of breath SOB (shortness of breath) Spasmodic bladder Stenosis of infrarenal abdominal aorta due to arteriosclerosis Says his aorta is mildly enlarged Tendinitis of both rotator cuffs Trochanteric bursitis, left hip Trochanteric bursitis, right hip Type 2 diabetes mellitus without complications Wears glasses Surgical History Surgical History H/O cardiac catheterization H/O carotid endarterectomy (~10/2022) H/O cystoscopy H/O heart artery stent H/O rectal polypectomy History of angioplasty History of cataract surgery History of colonoscopy 2019 History of prostatectomy Had prostate cancer, status post prostatectomy and later radiation therapy. Has an implanted device to help with urinary incontinence. History of rotator cuff surgery Hx of endarterectomy S/P arthroscopic surgery of left knee Family History Family History Father , of lung cancer age 83 Hypertension Lung cancer Sibling Hypertension Mother Family history of malignant neoplasm of breast in first degree relative Breast cancer of breast cancer age 37 Sibling No problems noted. Other Diabetes mellitus Family history of cardiovascular disease Family history of elevated blood lipids Family history of malignant neoplasm Social History Social History Social History: The patient has 2 sons and is . He does not have a durable power real estate attorney. Wishes to be a full code. 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 Smoking packs per day: 1 Smoking cigarettes per day: 20.0 Years smoked: 15 Smoking pack-years: 15.00 Smoking status: Former smoker Tobacco type: cigarettes Second hand tobacco smoke exposure: No Smoking end date: 08/31/82 Alcohol intake: current Drinks per week: 14 Substance use: former Substance use type: marijuana Other substance usage details: no beer in over a week; no marijuana in 9 months Do You Feel Safe in your Home?: Yes Lack of Transportation: No Lack of Food: Never True Current Housing: I Have Housing Concerned About Future Housing: No Difficulty Paying Gas/Electric Bills: No Difficulty Paying for Meds: No Currently Unemployed: No Education: Trade/Vocational Certificate Difficulty w/ Childcare or Family Care: No Living arrangements: alone Occupation/Education: retired Additional occupation/education comments: 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 Gender identity (if verbalized by the patient): Male Spiritual care concerns: No Agree to blood products: Yes Meds Home Medications and Allergies Home Medications Medication Instructions Recorded Confirmed Type nitroglycerin 0.3 mg sublingual 0.3 mg sublingual PRN PRN Chest 12/05/21 07/10/24 History tablet Pain ticagrelor 60 mg tablet (Brilinta) 60 mg PO BID 12/05/21 07/10/24 History aspirin 81 mg tablet,delayed 81 mg PO DAILY 12/06/21 07/10/24 History release (Adult Aspirin Regimen) chlorthalidone 25 mg tablet 25 mg PO DAILY 04/16/23 07/10/24 History blood sugar diagnostic (Accu-Chek #400 ea 07/01/23 07/10/24 Rx Aaliyah Plus test strips) rosuvastatin 40 mg tablet 40 mg PO DAILY 10/13/23 07/10/24 History alprazolam 0.5 mg tablet 0.5 mg PO TID PRN Anxiety #20 tabs 03/10/24 07/10/24 Rx nortriptyline 25 mg capsule 25 mg PO QHS #90 caps 03/15/24 07/10/24 Rx finerenone 10 mg tablet (Kerendia) 10 mg PO DAILY #30 tabs 05/10/24 07/10/24 Rx telmisartan 80 mg tablet 80 mg PO DAILY 06/08/24 07/10/24 History allopurinol 300 mg tablet 300 mg PO DAILY #90 tabs 06/15/24 07/10/24 Rx pantoprazole 40 mg tablet,delayed 40 mg PO DAILY #90 tabs 06/26/24 07/10/24 Rx release famotidine 20 mg tablet 20 mg PO DAILY 07/06/24 07/10/24 History pentoxifylline 400 mg 400 mg PO TID 07/06/24 07/10/24 History tablet,extended release calcium carbonate (Tums) 200 mg PO TID PRN heart burn 07/11/24 07/11/24 History amlodipine 2.5 mg tablet 2.5 mg PO DAILY 07/12/24 07/12/24 History carvedilol 12.5 mg tablet (Coreg) 12.5 mg PO BID 07/12/24 07/12/24 History Allergies Allergy/AdvReac Type Severity Reaction Status Date / Time dapagliflozin [From [facility]] AdvReac Severe Hallucinati Verified 07/10/24 20:42 ng metformin AdvReac Severe Diarrhea Verified 07/10/24 20:42 semaglutide [From [facility]] AdvReac Intermediate Confusion Verified 07/10/24 20:42 Vital Signs Vital Signs Temp Pulse Pulse Resp BP Pulse Ox O2 Del Method 07/15/24 10:55 80 07/15/24 10:55 80 16 127/60 97 Room Air 07/15/24 10:40 82 15 143/65 H 96 Room Air 07/15/24 10:40 82 07/15/24 10:25 83 07/15/24 10:25 83 15 139/65 98 Room Air 07/15/24 10:10 89 07/15/24 10:10 89 13 127/65 94 Room Air 07/15/24 08:55 105 H 16 137/62 99 07/15/24 08:03 99 07/15/24 08:20 Room Air 07/15/24 08:57 105 H 07/15/24 08:00 97.7 F 112 H 18 125/66 98 07/15/24 04:00 79 07/15/24 00:00 85 07/14/24 20:00 87 07/15/24 03:29 97.2 F L 83 16 118/56 L 98 07/14/24 20:00 Room Air 07/14/24 23:13 96.9 F L 96 16 119/55 L 97 07/14/24 21:19 92 07/14/24 20:28 80/43 L 07/14/24 20:27 85/51 L 07/14/24 20:00 97.6 F 88 16 115/60 98 07/14/24 20:00 97.6 F 88 16 115/60 98 Exam Narrative: GENERAL APPEARANCE: elderly but well developed well nourished male in no acute distress HEENT: normocephalic, atraumatic, normal conjunctiva and sclera, nares patient NECK: no lymphadenopathy, thyromegaly, or JVD MOUTH: normal lips, teeth, and gums CARDIOVASCULAR: RRR, normal S1 and S2, no rub RESPIRATORY: clear to auscultation bilaterally ABDOMEN: soft, nontender, nondistended, positive bowel sounds present EXTREMITIES: no evidence of cyanosis, clubbing, or edema NEUROLOGICAL: alert and oriented x 3; CN II - XII intact bilaterally; no focal deficits noted Results Lab Results 07/16/24 04:40 07/16/24 04:40 Lab results: Most recent lab results Calcium 10.8 mg/dL (8.4-10.2) H 07/15/24 06:51 Magnesium 1.8 mg/dL (1.6-2.3) 07/15/24 06:51 Urine Creatinine 45.3 mg/dL 07/10/24 23:37
--- NOTE | 2024-07-15 14:32 | PC.NURSE ---
Pt received from veterinary laboratory technician via stretcher.
[2024-07-15] MEDS: FAMOTIDINE 20 MG TABLET PO (17:24)
--- NOTE | 2024-07-15 17:37 | PC.NURSE ---
RN passing medications in room. Pt stated I noticed this is swelling a little bit. Is that ok? (Referring to his right arm where the TR band was) RN assessed arm and noticed a little knot just proximal to the dressing. Pt able to feel fingers, no numbness or tingling noted by pt. Fingertips are cool to touch but are in comparison to left hand, no changes noted since arrival to unit. RN notified billing auditor and Senior Business Development Analyst cardiothoracic surgeon. Orders to hold pressure to try and resolve hematoma and then apply pressure dressing.
--- NOTE | 2024-07-15 18:01 | PC.NURSE ---
After holding pressure and monitoring site. It's believed that it maybe more of a cyst under the skin than a hematoma. can labeler RN held pressure with no resolution of knot. Knot is mobile and doesn't cause pain when pressed. No other swelling or discoloration noted to arm. Software Trainer updated.
[2024-07-15 20:31] LABS: Glucose Point of Care 132 mg/dl (65-105)
[2024-07-15] MEDS: NORTRIPTYLINE HCL 25 MG CAPSULE PO (22:10)
[2024-07-15] MEDS: METOPROLOL TARTRATE 25 MG TABLET PO (22:10)
[2024-07-16] VITALS (27 sets, daily range): BP systolic 81–166; BP diastolic 40–56; PULSE 69–100; RESP 16–18; TEMP 36.4–36.8; O2SAT 96–100
[2024-07-16 01:15] LABS: Glucose Point of Care 154 mg/dl (65-105)
[2024-07-16 05:02] LABS: Basophils Absolute Auto 0.1 K/mm3 (0.0-0.1); Basophils Percent Auto 0.8 % (0.2-1.2); Eosinophils Absolute Auto 0.2 K/mm3 (0-0.3); Eosinophils Percent Auto 2.2 % (0-4.4); Hematocrit 35.8 % (42.0-52.0); Immature Granulocyte Absolute 0.04 K/mm3 (0.00-0.031); Immature Granulocyte Percent A 0.5 % (0-0.5); Lymphocytes Absolute Auto 1.77 K/mm3 (0.9-3.2); Lymphocytes Percent Auto 20.1 % (18.3-44.2); Mean Corpuscular HGB Conc 33.5 g/dl (32-36); Mean Corpuscular Hemoglobin 31.3 pg (26-34); Mean Corpuscular Volume 93.5 fl (80-100); Mean Platelet Volume 10.5 fl (7.4-10.4); Monocytes Absolute Auto 0.9 K/mm3 (0.1-0.6); Neutrophils Absolute Auto 5.9 K/mm3 (1.3-6.7); Neutrophils Percent Auto 66.4 % (45.5-73.1); Platelet Count Result 209 k/mm3 (150-375); Red Blood Count 3.83 M/mm3 (4.6-6.20); Red Cell Distribution Width 13.2 % (11.5-14.5); White Blood Count 8.8 K/mm3 (4.5-10.0)
[2024-07-16 05:19] LABS: Alanine Aminotransferase 21 U/L (6-50); Albumin Level 3.8 g/dL (3.5-5.1); Alkaline Phosphatase 96 U/L (38-126); Anion Gap 9 mmol/L (4-12); Aspartate Amino Transferase 28 U/L (17-59); Bilirubin,Total 0.3 mg/dL (0.2-1.3); Blood Urea Nitrogen 38 mg/dL (9-20); Calcium 10.1 mg/dL (8.4-10.2); Carbon Dioxide 26 mmol/L (22-30); Chloride 100 mmol/L (98-107); Estimated CRCL calculation 28 ml/min; Estimated Glomerular Filt Rate 35; Glucose 150 mg/dL (65-110); Potassium 3.8 mmol/L (3.4-5.0); Sodium 135 mmol/L (137-145)
[2024-07-16 05:27] LABS: Magnesium 1.9 mg/dL (1.6-2.3)
[2024-07-16 07:43] LABS: Glucose Point of Care 125 mg/dl (65-105)
[2024-07-16] MEDS: MIDODRINE HCL 10 MG TABLET PO ×3 (09:10→17:07)
[2024-07-16] MEDS: ROSUVASTATIN 20 MG TABLET 40 MG PO (09:10)
[2024-07-16 09:11] LABS: Add Urine Microscopic? YES; Appearance Urine Clear (Clear); Bacteria Urine None Seen /hpf; Bilirubin Urine Negative (Negative); Blood Urine Negative (Negative); Color Urine Yellow (Yellow); Glucose Urine UA Negative (Negative); Ketones Urine Negative (Negative); Leukocyte Esterase Ur Negative LEU/UL (Negative); Nitrate Urine Negative (Negative); Protein Urine 1+ mg/dL (Negative); RBC Urine 0-2 /hpf (0-2); Specific Grav Ur 1.023 (1.001-1.035); Squamous Epithelial Cell Urine None Seen /hpf (Few); Urobilinogen Urine 0.2 mg/dL (<2.0); WBC Urine 0-5 /hpf (0-3)
[2024-07-16] MEDS: allopurinoL 300 MG TABLET PO (09:11)
[2024-07-16] MEDS: TICAGRELOR 60 MG TABLET PO ×2 (09:11→21:03)
[2024-07-16] MEDS: METOPROLOL TARTRATE 25 MG TABLET PO ×2 (09:11→21:03)
[2024-07-16] MEDS: PANTOPRAZOLE 40 MG TABLET PO (09:11)
[2024-07-16] MEDS: PENTOXIFYLLINE 400 MG TABCR PO ×3 (09:11→17:07)
[2024-07-16] MEDS: ASPIRIN 81 MG ENTERIC TABLET PO (09:11)
[2024-07-16 09:25] LABS: Creatinine Urine 71.4 mg/dL; Total Protein Urine Random 30 mg/dL; Ur Ttl Prot Creatinine Ratio 0.42 mg/mg (0-0.20)
[2024-07-16 09:33] LABS: Sodium Urine Random 81 meq/L; Urea Random Urine 640 MG/DL
[2024-07-16 10:40] LABS: Eosinophil Urine None Seen % (None Seen); Urine Eos QC 2nd Tech Confirmed
[2024-07-16 11:43] LABS: Glucose Point of Care 159 mg/dl (65-105)
--- NOTE | 2024-07-16 11:51 | P.PNIM_ITS ---
Progress Note: A&P Assessment and Plan (1) Light-headedness: Code(s): R42 - Dizziness and giddiness Status: Acute Assessment and Plan: * Likely secondary to orthostatic hypotension. * Orthostatic blood pressure remain +ve. * Continue to maintain adequate hydration * TEDS in place and advised to place abdominal binder noted bedside, prior to standing. * Caution when transitioning from sitting or lying to standing. * Continue fall precautions. * Continue Midodrine 10 mg PO TID. * Cardiology following. * ECHO 07/11/24 showed EF > 70%. * Continue Metoprolol and allow for high normal BP's due to orthostatic hypote nsion. (2) Exertional dyspnea: Code(s): R06.09 - Other forms of dyspnea Status: Acute Assessment and Plan: * Denies symptoms currently. * Good O2 sats > 90 % on RA. * CXR negative for acute. * CTA chest negative for PE or acute process. * monitor for now. (3) CAD (coronary artery disease): Qualifiers: Coronary Disease-Associated Artery/Lesion type: [place] artery [place] vs. transplanted heart: [place] heart Associated angina: without angina Qualified Code(s): I25.10 - Atherosclerotic heart disease of [place] coronary artery without angina pectoris Code(s): I25.10 - Atherosclerotic heart disease of [place] coronary artery without angina pectoris Status: Acute Assessment and Plan: * s/p LHC with no significant coronary occlusion noted. * Continue ASA, Brilinta 60mg b.i.d. (per [facility]) * Continue statin * Risk factor modification for CAD. (4) JOEY (acute kidney injury): Code(s): N17.9 - Acute kidney failure, unspecified Status: Acute Assessment and Plan: improving * In 10/24 Cr 1.3. * s/p Contrast exposure with CTA chest and LHC. * Nephro consulted and Cr starting to trend down 2.0>>1.9 * Encourage hydration. * Avoid nephrotoxins. * Further w/u per carrier operator. * Meds dosing per renal function. (5) Chronic kidney disease, stage 3a: Code(s): N18.31 - Chronic kidney disease, stage 3a Status: Acute Assessment and Plan: - Mgt as # 4. - [employer] following. - Monitor renal function closely. (6) Hypomagnesemia: Code(s): E83.42 - Hypomagnesemia Status: Acute Assessment and Plan: * Repleted and currently wnl. * Monitor labs closely. (7) GERD (gastroesophageal reflux disease): Code(s): K21.9 - Gastro-esophageal reflux disease without esophagitis Status: Acute Assessment and Plan: * Pantoprazole 40 mg PO daily. Plan Continue to monitor closely for orthostatic hypotension. Maintain fall precautions and monitor renal function closely. Time Spent With Patient Time with patient: 25 - 35 minutes Subjective Date/time seen: 07/16/24 11:51 Patient calm on bedrest and states he feels alright when he's laying down on the bed or sitting, but still has dizziness when he stands. States [place] with [place] [facility] [place] tolerated fairly but still had some dizziness. Interval history: Patient admitted for dizziness and exertional dyspnea. Patient noted with positive orthostatics that is still present. Patient had a cardiac catheterization done that did not show any significant coronary arterial occlusions. Patient also noted with JOEY on his CKD and carrier operator consulted due to contrast exposure X2; CTA chest and C. Review of Systems Review of Systems: lightheadedness with standing position. All systems reviewed & are unremarkable except as noted in HPI and below Exam Narrative: HEENT: Atraumatic, PERRL, EOM, non-icteric, moist mucus membranes. NECK: Supple. Lungs: Clear bilaterally. HEART: RRR, no murmurs. ABDOMEN: Soft, non-tender, non-distended, +ve bowel sounds. EXTREMITIES: No edema +ve pedal pulses, teds in place. SKIN: [place] and dry, no lesions. NEURO: Well oriented. No focal neuro deficits noted. PSYCH: Pleasant and co-operative. Objective Data Vital Signs Vital Signs: Vital Signs - 24 hr 07/15/24 11:55 07/15/24 11:55 07/15/24 12:10 Temperature Pulse Rate 85 Pulse Rate [Right Radial] 85 82 Respiratory Rate 13 Blood Pressure 146/68 H Pulse Oximetry 98 Oxygen Delivery Room Air 07/15/24 12:10 07/15/24 12:25 07/15/24 12:25 Temperature Pulse Rate 82 83 Pulse Rate [Right Radial] 83 Respiratory Rate 20 17 Blood Pressure 136/56 L 140/77 Pulse Oximetry 96 97 Oxygen Delivery Room Air Room Air 07/15/24 12:40 07/15/24 12:40 07/15/24 13:02 Temperature Pulse Rate 84 80 Pulse Rate [Right Radial] 84 Respiratory Rate 18 15 Blood Pressure 97/86 L 135/75 Pulse Oximetry 100 100 Oxygen Delivery Room Air Room Air 07/15/24 13:02 07/15/24 13:10 07/15/24 13:10 Temperature Pulse Rate 84 Pulse Rate [Right Radial] 80 84 Respiratory Rate 20 Blood Pressure 134/51 L Pulse Oximetry 98 Oxygen Delivery Room Air 07/15/24 13:40 07/15/24 13:40 07/15/24 14:51 Temperature 97.6 F Pulse Rate 85 81 Pulse Rate [Right Radial] 85 Respiratory Rate 20 20 Blood Pressure 132/61 131/45 L Pulse Oximetry 99 100 Oxygen Delivery Room Air 07/15/24 14:30 07/15/24 14:30 07/15/24 15:00 Temperature 98.0 F Pulse Rate 81 88 78 Pulse Rate [Right Radial] Respiratory Rate 20 20 Blood Pressure 137/46 L Pulse Oximetry 100 100 Oxygen Delivery Room Air 07/15/24 16:00 07/15/24 16:00 07/15/24 16:00 Temperature 97.9 F Pulse Rate 77 77 79 Pulse Rate [Right Radial] Respiratory Rate 20 20 Blood Pressure 119/39 L Pulse Oximetry 100 100 Oxygen Delivery Room Air 07/15/24 17:00 07/15/24 18:00 07/15/24 18:00 Temperature 97.6 F 97.9 F Pulse Rate 86 87 84 Pulse Rate [Right Radial] Respiratory Rate 18 16 Blood Pressure 155/51 H 143/50 H Pulse Oximetry 100 100 Oxygen Delivery 07/15/24 20:13 07/15/24 20:14 07/15/24 20:15 Temperature 97.9 F 97.9 F Pulse Rate 82 82 Pulse Rate [Right Radial] Respiratory Rate 16 18 100 H Blood Pressure 150/54 H 150/54 H 120/48 L Pulse Oximetry 100 100 Oxygen Delivery 07/15/24 20:15 07/15/24 22:10 07/15/24 20:00 Temperature Pulse Rate 101 H 91 Pulse Rate [Right Radial] Respiratory Rate Blood Pressure 96/48 L Pulse Oximetry Oxygen Delivery Room Air 07/16/24 00:07 07/15/24 20:00 07/15/24 22:00 Temperature 97.8 F Pulse Rate 89 84 93 Pulse Rate [Right Radial] Respiratory Rate 16 Blood Pressure 145/51 H Pulse Oximetry 96 Oxygen Delivery 07/16/24 00:00 07/16/24 00:00 07/16/24 02:00 Temperature Pulse Rate 83 77 Pulse Rate [Right Radial] Respiratory Rate Blood Pressure Pulse Oximetry Oxygen Delivery Room Air 07/16/24 05:30 07/16/24 04:00 07/16/24 04:00 Temperature 97.8 F Pulse Rate 73 69 Pulse Rate [Right Radial] Respiratory Rate 16 Blood Pressure 126/49 L Pulse Oximetry 99 Oxygen Delivery Room Air 07/16/24 06:00 07/16/24 07:46 07/16/24 07:51 Temperature 97.6 F Pulse Rate 75 79 Pulse Rate [Right Radial] Respiratory Rate 16 Blood Pressure 120/40 L Pulse Oximetry 98 Oxygen Delivery Room Air 07/16/24 07:59 07/16/24 07:57 07/16/24 07:57 Temperature 97.6 F Pulse Rate 79 Pulse Rate [Right Radial] Respiratory Rate 16 Blood Pressure 120/40 L 99/50 L 81/43 L Pulse Oximetry 98 Oxygen Delivery 07/16/24 08:00 07/16/24 08:00 07/16/24 09:11 Temperature Pulse Rate Pulse Rate [Right Radial] Respiratory Rate Blood Pressure 99/50 L 81/43 L Pulse Oximetry Oxygen Delivery Room Air 07/16/24 11:26 07/16/24 11:27 07/16/24 11:28 Temperature 97.9 F Pulse Rate 79 Pulse Rate [Right Radial] Respiratory Rate 16 Blood Pressure 138/44 L 116/42 L 92/49 L Pulse Oximetry 99 Oxygen Delivery Intake/Output Intake/Output: Intake & Output 07/13/24 07/14/24 07/15/24 07/16/24 23:59 23:59 23:59 23:59 Intake Total 8000 622 4248 790 Output Total 378 649 3773 Balance 829 603 3821 -810 Meds/Results Medications: Active Medications Generic Name Dose Route Start Last Admin Trade Name Freq PRN Reason Stop Dose Admin Allopurinol 300 mg 07/11/24 09:00 07/16/24 09:11 Allopurinol 300 Mg Tablet PO 300 mg DAILY CLARISSA Administration Alprazolam 0.5 mg 07/10/24 22:47 07/14/24 21:18 Alprazolam (*Crx) 0.5 Mg Tablet PO 0.5 mg TID PRN Administration Anxiety Aspirin 81 mg 07/11/24 09:00 07/16/24 09:11 Aspirin 81 Mg Enteric Tablet PO 81 mg DAILY CLARISSA Administration Docusate Sodium 100 mg 07/12/24 17:11 07/12/24 17:31 Docusate Sodium 100 Mg Capsule PO 100 mg Q12H PRN Administration Constipation Famotidine 20 mg 07/12/24 17:00 07/15/24 17:24 Famotidine 20 Mg Tablet PO 20 mg 1700 CLARISSA Administration Metoprolol Tartrate 25 mg 07/15/24 21:00 07/16/24 09:11 Metoprolol Tartrate 25 Mg Tablet PO 25 mg Q12HR CLARISSA Administration Midodrine 10 mg 07/16/24 09:00 07/16/24 09:10 Midodrine Hcl 10 Mg Tablet PO 10 mg TID CLARISSA Administration Miscellaneous Information 0 each 07/10/24 00:01 07/11/24 00:26 Kerendia = Nonformulary. Can Pt Use From Home? XX 08/09/24 00:00 Not Given CLARIFY CLARISSA Nitroglycerin 0.4 mg 07/11/24 19:56 Nitroglycerin Sl 0.4 Mg Tablet SUBLINGUAL Q5MIN PRN Chest Pain Nortriptyline HCl 25 mg 07/10/24 21:00 07/15/24 22:10 Nortriptyline Hcl 25 Mg Capsule PO 25 mg QHS CLARISSA Administration Pantoprazole Sodium 40 mg 07/11/24 09:00 07/16/24 09:11 Pantoprazole 40 Mg Tablet PO 40 mg DAILY CLARISSA Administration Pentoxifylline 400 mg 07/11/24 09:00 07/16/24 09:11 Pentoxifylline 400 Mg Tabcr PO 400 mg TID [facility] Administration Rosuvastatin Calcium 40 mg 07/11/24 09:00 07/16/24 09:10 Rosuvastatin 20 Mg Tablet PO 40 mg DAILY CLARISSA Administration Ticagrelor 60 mg 07/10/24 21:00 07/16/24 09:11 Ticagrelor 60 Mg Tablet PO 60 mg Q12HR CLARISSA Administration Radiology Results: ITS Impressions Head CT 07/10/24 17:22 IMPRESSION: No acute intracranial process. Chest X-Ray 07/10/24 17:51 IMPRESSION: No acute cardiopulmonary process. Chest CTA 07/10/24 19:38 IMPRESSION: No CT evidence of acute pulmonary embolus. No acute process detected in the chest. ADDENDUM: 07/10/24 1950 1.7 cm right thyroid nodule, consider nonemergent outpatient thyroid ultrasound for further evaluation. Renal Ultrasound 07/16/24 08:17 IMPRESSION: 1. Normal kidney sizes. No hydronephrosis. Labs Labs: Laboratory Results - last 24 hr 07/15/24 07/15/24 07/16/24 15:24 20:28 04:40 WBC 8.8 RBC 3.83 L Hgb 12.0 L Hct 35.8 L MCV 93.5 MCH 31.3 MCHC 33.5 RDW 13.2 Plt Count 209 MPV 10.5 H Immature Gran % (Auto) 0.5 Neut % (Auto) 66.4 Lymph % (Auto) 20.1 [place] % (Auto) 10.0 H Eos % (Auto) 2.2 Baso % (Auto) 0.8 Lymph # (Auto) 1.77 [place] # (Auto) 0.9 H Eos # (Auto) 0.2 Baso # (Auto) 0.1 Abs Immat Gran (auto) 0.04 H Absolute Neuts (auto) 5.9 Absolute Nucleated RBC 0.000 Nucleated RBC % 0.0 Sodium 135 L Potassium 3.8 Chloride 100 Carbon Dioxide 26 Anion Gap 9 BUN 38 H Creatinine 1.90 H Estim Creat Clear Calc 28 Estimated GFR 35 L Glucose 150 H POC Capillary Glucose 154 H 132 H Calcium 10.1 Magnesium 1.9 Total Bilirubin AST ALT Alkaline Phosphatase Total Protein Albumin Urine Color Urine Appearance Urine pH Ur Specific [place] Urine Protein Urine Glucose (UA) Urine Ketones Ur Blood (Man) Urine Nitrate Urine Bilirubin Urine Urobilinogen Leukocyte Esterase Rfl Urine RBC Urine WBC Ur Squamous Epith Cells Urine Bacteria Urine Casts Urine Eosinophils U Random Total Protein Ur Random Sodium Ur Random Urea Urine Total Volume Urine Creatinine Protein/Creat Ratio 2 07/16/24 07/16/24 07/16/24 04:40 07:27 07:28 WBC RBC Hgb Hct MCV MCH MCHC RDW Plt Count MPV Immature Gran % (Auto) Neut % (Auto) Lymph % (Auto) [place] % (Auto) Eos % (Auto) Baso % (Auto) Lymph # (Auto) [place] # (Auto) Eos # (Auto) Baso # (Auto) Abs Immat Gran (auto) Absolute Neuts (auto) Absolute Nucleated RBC Nucleated RBC % Sodium Potassium Chloride Carbon Dioxide Anion Gap BUN Creatinine Estim Creat Clear Calc Estimated GFR Glucose POC Capillary Glucose Calcium Magnesium Cancelled Total Bilirubin 0.3 AST 28 ALT 21 Alkaline Phosphatase 96 Total Protein 7.0 Albumin 3.8 Urine Color Yellow Urine Appearance Clear Urine pH 5.0 Ur Specific [place] 1.023 Urine Protein 1+ H Urine Glucose (UA) Negative Urine Ketones Negative Ur Blood (Man) Negative Urine Nitrate Negative Urine Bilirubin Negative Urine Urobilinogen 0.2 Leukocyte Esterase Rfl Negative Urine RBC 0-2 Urine WBC 0-5 Ur Squamous Epith Cells None seen Urine Bacteria None seen Urine Casts 3-5 Urine Eosinophils None seen U Random Total Protein 30 Cancelled Ur Random Sodium 81 Ur Random Urea 640 Urine Total Volume Cancelled Urine Creatinine 71.4 Cancelled Protein/Creat Ratio 2 0.42 H 07/16/24 07/16/24 07:39 11:24 WBC RBC Hgb Hct MCV MCH MCHC RDW Plt Count MPV Immature Gran % (Auto) Neut % (Auto) Lymph % (Auto) [place] % (Auto) Eos % (Auto) Baso % (Auto) Lymph # (Auto) [place] # (Auto) Eos # (Auto) Baso # (Auto) Abs Immat Gran (auto) Absolute Neuts (auto) Absolute Nucleated RBC Nucleated RBC % Sodium Potassium Chloride Carbon Dioxide Anion Gap BUN Creatinine Estim Creat Clear Calc Estimated GFR Glucose POC Capillary Glucose 125 H 159 H Calcium Magnesium Total Bilirubin AST ALT Alkaline Phosphatase Total Protein Albumin Urine Color Urine Appearance Urine pH Ur Specific [place] Urine Protein Urine Glucose (UA) Urine Ketones Ur Blood (Man) Urine Nitrate Urine Bilirubin Urine Urobilinogen Leukocyte Esterase Rfl Urine RBC Urine WBC Ur Squamous Epith Cells Urine Bacteria Urine Casts Urine Eosinophils U Random Total Protein Ur Random Sodium Ur Random Urea Urine Total Volume Urine Creatinine Protein/Creat Ratio 2 Quality VTE Prophylaxis VTE prophylaxis: mechanical ordered Hospitalist MIPS Advance Care Plan I have confirmed that the patient's Advanced Care Plan is present, code status is documented, or surrogate decision maker is listed in patient medical record.: Yes Medication Reconciliation I have utilized all available resources to obtain, update and review the patients current medications (includes all prescriptions, OTC, herbals, cannabis, and nutritional supplements).: Yes
--- NOTE | 2024-07-16 12:11 | P.PNNP_ITS ---
Progress Note: A&P Assessment and Plan (1) JOEY (acute kidney injury): Code(s): N17.9 - Acute kidney failure, unspecified Status: Acute Assessment and Plan: * elevated above baseline on admission * Renal ultrasound unremarkable * UA shows 1+ protein * urine electrolytes and fractional excretion of urea were non pre renal. * CK ordered but not done * possibly related to fluctuating hemodynamics/orthostatic hypotension * now complicate by contrast exposure x 2 (CT chest PE protocol and cardiac cath) * Check another creatinine tomorrow (2) Stage 3b chronic kidney disease: Code(s): N18.32 - Chronic kidney disease, stage 3b Status: Chronic Assessment and Plan: * baseline creatinine runs ~ 1.3 - 1.8mg/dl in the last year * presumably due to HTN, diabetes, vascular disease and age-related change (3) Light-headedness: Code(s): R42 - Dizziness and giddiness Status: Acute Assessment and Plan: * consistent with orthostatic hypotension * agree with adequate hydration * Amlodipine and chlorthalidone both stopped. It will probably take until tomorrow to completely get off the effects of these medications. He is on metoprolol at 25 twice a day. * DEAN hose and abdominal binder use * on midodrine therapy. This dose was just increased to 10 3 times a day. * Cardiology following * s/p cardiac catheterization - findings noted * follow repeat orthostatic BPs Subjective Date/time seen: 07/16/24 12:11 Interval history: patient is lying in bed in semi-John's position. just starting to eat some lunch. Review of Systems Cardiovascular: Cardiovascular: Reports no additional cardiovascular complaints Respiratory: Respiratory: Reports no additional respiratory complaints Gastrointestinal: Gastrointestinal: Reports no additional gastrointestinal complaints Genitourinary: Genitourinary: Reports no additional male genitourinary complaints Exam Narrative: WDWN in NAD skin no rash head ncat lungs clear cor reg no rub abd BS+ nontender and soft ext no edema. Objective Data Vital Signs Vital Signs: Vital Signs - 24 hr 07/15/24 12:25 07/15/24 12:25 07/15/24 12:40 Temperature Pulse Rate 83 Pulse Rate [Right Radial] 83 84 Respiratory Rate 17 Blood Pressure 140/77 Pulse Oximetry 97 Oxygen Delivery Room Air 07/15/24 12:40 07/15/24 13:02 07/15/24 13:02 Temperature Pulse Rate 84 80 Pulse Rate [Right Radial] 80 Respiratory Rate 18 15 Blood Pressure 97/86 L 135/75 Pulse Oximetry 100 100 Oxygen Delivery Room Air Room Air 07/15/24 13:10 07/15/24 13:10 07/15/24 13:40 Temperature Pulse Rate 84 Pulse Rate [Right Radial] 84 85 Respiratory Rate 20 Blood Pressure 134/51 L Pulse Oximetry 98 Oxygen Delivery Room Air 07/15/24 13:40 07/15/24 14:51 07/15/24 14:30 Temperature 97.6 F Pulse Rate 85 81 81 Pulse Rate [Right Radial] Respiratory Rate 20 20 20 Blood Pressure 132/61 131/45 L Pulse Oximetry 99 100 100 Oxygen Delivery Room Air Room Air 07/15/24 14:30 07/15/24 15:00 07/15/24 16:00 Temperature 98.0 F 97.9 F Pulse Rate 88 78 77 Pulse Rate [Right Radial] Respiratory Rate 20 20 Blood Pressure 137/46 L 119/39 L Pulse Oximetry 100 100 Oxygen Delivery 07/15/24 16:00 07/15/24 16:00 07/15/24 17:00 Temperature 97.6 F Pulse Rate 77 79 86 Pulse Rate [Right Radial] Respiratory Rate 20 18 Blood Pressure 155/51 H Pulse Oximetry 100 100 Oxygen Delivery Room Air 07/15/24 18:00 07/15/24 18:00 07/15/24 20:13 Temperature 97.9 F 97.9 F Pulse Rate 87 84 82 Pulse Rate [Right Radial] Respiratory Rate 16 16 Blood Pressure 143/50 H 150/54 H Pulse Oximetry 100 100 Oxygen Delivery 07/15/24 20:14 07/15/24 20:15 07/15/24 20:15 Temperature 97.9 F Pulse Rate 82 101 H Pulse Rate [Right Radial] Respiratory Rate 18 100 H Blood Pressure 150/54 H 120/48 L 96/48 L Pulse Oximetry 100 Oxygen Delivery 07/15/24 22:10 07/15/24 20:00 07/16/24 00:07 Temperature 97.8 F Pulse Rate 91 89 Pulse Rate [Right Radial] Respiratory Rate 16 Blood Pressure 145/51 H Pulse Oximetry 96 Oxygen Delivery Room Air 07/15/24 20:00 07/15/24 22:00 07/16/24 00:00 Temperature Pulse Rate 84 93 Pulse Rate [Right Radial] Respiratory Rate Blood Pressure Pulse Oximetry Oxygen Delivery Room Air 07/16/24 00:00 07/16/24 02:00 07/16/24 05:30 Temperature 97.8 F Pulse Rate 83 77 73 Pulse Rate [Right Radial] Respiratory Rate 16 Blood Pressure 126/49 L Pulse Oximetry 99 Oxygen Delivery 07/16/24 04:00 07/16/24 04:00 07/16/24 06:00 Temperature Pulse Rate 69 75 Pulse Rate [Right Radial] Respiratory Rate Blood Pressure Pulse Oximetry Oxygen Delivery Room Air 07/16/24 07:46 07/16/24 07:51 07/16/24 07:59 Temperature 97.6 F 97.6 F Pulse Rate 79 79 Pulse Rate [Right Radial] Respiratory Rate 16 16 Blood Pressure 120/40 L 120/40 L Pulse Oximetry 98 98 Oxygen Delivery Room Air 07/16/24 07:57 07/16/24 07:57 07/16/24 08:00 Temperature Pulse Rate Pulse Rate [Right Radial] Respiratory Rate Blood Pressure 99/50 L 81/43 L 99/50 L Pulse Oximetry Oxygen Delivery 07/16/24 08:00 07/16/24 09:11 07/16/24 11:26 Temperature 97.9 F Pulse Rate 79 Pulse Rate [Right Radial] Respiratory Rate 16 Blood Pressure 81/43 L 138/44 L Pulse Oximetry 99 Oxygen Delivery Room Air 07/16/24 11:27 07/16/24 11:28 Temperature Pulse Rate Pulse Rate [Right Radial] Respiratory Rate Blood Pressure 116/42 L 92/49 L Pulse Oximetry Oxygen Delivery Intake/Output Intake/Output: Intake & Output 07/13/24 07/14/24 07/15/24 07/16/24 23:59 23:59 23:59 23:59 Intake Total 1716 884 0857 790 Output Total 000 868 0999 Balance 432 557 8144 -810 Meds/Results Medications: Active Medications Generic Name Dose Route Start Last Admin Trade Name Freq PRN Reason Stop Dose Admin Allopurinol 300 mg 07/11/24 09:00 07/16/24 09:11 Allopurinol 300 Mg Tablet PO 300 mg DAILY CLARISSA Administration Alprazolam 0.5 mg 07/10/24 22:47 07/14/24 21:18 Alprazolam (*Crx) 0.5 Mg Tablet PO 0.5 mg TID PRN Administration Anxiety Aspirin 81 mg 07/11/24 09:00 07/16/24 09:11 Aspirin 81 Mg Enteric Tablet PO 81 mg DAILY [facility] Administration Docusate Sodium 100 mg 07/12/24 17:11 07/12/24 17:31 Docusate Sodium 100 Mg Capsule PO 100 mg Q12H PRN Administration Constipation Famotidine 20 mg 07/12/24 17:00 07/15/24 17:24 Famotidine 20 Mg Tablet PO 20 mg 1700 CLARISSA Administration Metoprolol Tartrate 25 mg 07/15/24 21:00 07/16/24 09:11 Metoprolol Tartrate 25 Mg Tablet PO 25 mg Q12HR CLARISSA Administration Midodrine 10 mg 07/16/24 09:00 07/16/24 09:10 Midodrine Hcl 10 Mg Tablet PO 10 mg TID CL[facility]ISSA Administration Miscellaneous Information 0 each 07/10/24 00:01 07/11/24 00:26 Kerendia = Nonformulary. Can Pt Use From Home? XX 08/09/24 00:00 Not Given CLARIFY [facility] Nitroglycerin 0.4 mg 07/11/24 19:56 Nitroglycerin Sl 0.4 Mg Tablet SUBLINGUAL Q5MIN PRN Chest Pain Nortriptyline HCl 25 mg 07/10/24 21:00 07/15/24 22:10 Nortriptyline Hcl 25 Mg Capsule PO 25 mg QHS [facility] Administration Pantoprazole Sodium 40 mg 07/11/24 09:00 07/16/24 09:11 Pantoprazole 40 Mg Tablet PO 40 mg DAILY [facility] Administration Pentoxifylline 400 mg 07/11/24 09:00 07/16/24 09:11 Pentoxifylline 400 Mg Tabcr PO 400 mg TID [facility] Administration Rosuvastatin Calcium 40 mg 07/11/24 09:00 07/16/24 09:10 Rosuvastatin 20 Mg Tablet PO 40 mg DAILY [facility] Administration Ticagrelor 60 mg 07/10/24 21:00 07/16/24 09:11 Ticagrelor 60 Mg Tablet PO 60 mg Q12HR [facility] Administration Radiology Results: ITS Impressions Head CT 07/10/24 17:22 IMPRESSION: No acute intracranial process. Chest X-Ray 07/10/24 17:51 IMPRESSION: No acute cardiopulmonary process. Chest CTA 07/10/24 19:38 IMPRESSION: No CT evidence of acute pulmonary embolus. No acute process detected in the chest. ADDENDUM: 07/10/24 1950 1.7 cm right thyroid nodule, consider nonemergent outpatient thyroid ultrasound for further evaluation. Renal Ultrasound 07/16/24 08:17 IMPRESSION: 1. Normal kidney sizes. No hydronephrosis. Labs Labs: Laboratory Results - last 24 hr 07/15/24 07/15/24 07/16/24 15:24 20:28 04:40 WBC 8.8 RBC 3.83 L Hgb 12.0 L Hct 35.8 L MCV 93.5 MCH 31.3 MCHC 33.5 RDW 13.2 Plt Count 209 MPV 10.5 H Immature Gran % (Auto) 0.5 Neut % (Auto) 66.4 Lymph % (Auto) 20.1 [place] % (Auto) 10.0 H Eos % (Auto) 2.2 Baso % (Auto) 0.8 Lymph # (Auto) 1.77 [place] # (Auto) 0.9 H Eos # (Auto) 0.2 Baso # (Auto) 0.1 Abs Immat Gran (auto) 0.04 H Absolute Neuts (auto) 5.9 Absolute Nucleated RBC 0.000 Nucleated RBC % 0.0 Sodium 135 L Potassium 3.8 Chloride 100 Carbon Dioxide 26 Anion Gap 9 BUN 38 H Creatinine 1.90 H Estim Creat Clear Calc 28 Estimated GFR 35 L Glucose 150 H POC Capillary Glucose 154 H 132 H Calcium 10.1 Magnesium 1.9 Total Bilirubin AST ALT Alkaline Phosphatase Total Protein Albumin Urine Color Urine Appearance Urine pH Ur Specific [place] Urine Protein Urine Glucose (UA) Urine Ketones Ur Blood (Man) Urine Nitrate Urine Bilirubin Urine Urobilinogen Leukocyte Esterase Rfl Urine RBC Urine WBC Ur Squamous Epith Cells Urine Bacteria Urine Casts Urine Eosinophils U Random Total Protein Ur Random Sodium Ur Random Urea Urine Total Volume Urine Creatinine Protein/Creat Ratio 2 07/16/24 07/16/24 07/16/24 04:40 07:27 07:28 WBC RBC Hgb Hct MCV MCH MCHC RDW Plt Count MPV Immature Gran % (Auto) Neut % (Auto) Lymph % (Auto) [place] % (Auto) Eos % (Auto) Baso % (Auto) Lymph # (Auto) [place] # (Auto) Eos # (Auto) Baso # (Auto) Abs Immat Gran (auto) Absolute Neuts (auto) Absolute Nucleated RBC Nucleated RBC % Sodium Potassium Chloride Carbon Dioxide Anion Gap BUN Creatinine Estim Creat Clear Calc Estimated GFR Glucose POC Capillary Glucose Calcium Magnesium Cancelled Total Bilirubin 0.3 AST 28 ALT 21 Alkaline Phosphatase 96 Total Protein 7.0 Albumin 3.8 Urine Color Yellow Urine Appearance Clear Urine pH 5.0 Ur Specific [place] 1.023 Urine Protein 1+ H Urine Glucose (UA) Negative Urine Ketones Negative Ur Blood (Man) Negative Urine Nitrate Negative Urine Bilirubin Negative Urine Urobilinogen 0.2 Leukocyte Esterase Rfl Negative Urine RBC 0-2 Urine WBC 0-5 Ur Squamous Epith Cells None seen Urine Bacteria None seen Urine Casts 3-5 Urine Eosinophils None seen U Random Total Protein 30 Cancelled Ur Random Sodium 81 Ur Random Urea 640 Urine Total Volume Cancelled Urine Creatinine 71.4 Cancelled Protein/Creat Ratio 2 0.42 H 07/16/24 07/16/24 07:39 11:24 WBC RBC Hgb Hct MCV MCH MCHC RDW Plt Count MPV Immature Gran % (Auto) Neut % (Auto) Lymph % (Auto) [place] % (Auto) Eos % (Auto) Baso % (Auto) Lymph # (Auto) [place] # (Auto) Eos # (Auto) Baso # (Auto) Abs Immat Gran (auto) Absolute Neuts (auto) Absolute Nucleated RBC Nucleated RBC % Sodium Potassium Chloride Carbon Dioxide Anion Gap BUN Creatinine Estim Creat Clear Calc Estimated GFR Glucose POC Capillary Glucose 125 H 159 H Calcium Magnesium Total Bilirubin AST ALT Alkaline Phosphatase Total Protein Albumin Urine Color Urine Appearance Urine pH Ur Specific [place] Urine Protein Urine Glucose (UA) Urine Ketones Ur Blood (Man) Urine Nitrate Urine Bilirubin Urine Urobilinogen Leukocyte Esterase Rfl Urine RBC Urine WBC Ur Squamous Epith Cells Urine Bacteria Urine Casts Urine Eosinophils U Random Total Protein Ur Random Sodium Ur Random Urea Urine Total Volume Urine Creatinine Protein/Creat Ratio 2
[2024-07-16 12:36] LABS: Creatine Kinase 183 U/L (55-170)
[2024-07-16] MEDS: FAMOTIDINE 20 MG TABLET PO (17:09)
[2024-07-16 17:29] LABS: Glucose Point of Care 178 mg/dl (65-105)
[2024-07-16 20:25] LABS: Glucose Point of Care 142 mg/dl (65-105)
[2024-07-16] MEDS: NORTRIPTYLINE HCL 25 MG CAPSULE PO (21:03)
[2024-07-16] MEDS: ALPRAZolam (*CRX) 0.5 MG TABLET PO (23:05)
[2024-07-17] VITALS (26 sets, daily range): BP systolic 85–169; BP diastolic 35–60; PULSE 67–118; RESP 14–18; TEMP 36.4–37.1; O2SAT 98–100
[2024-07-17 04:57] LABS: Basophils Absolute Auto 0.1 K/mm3 (0.0-0.1); Basophils Percent Auto 0.6 % (0.2-1.2); Eosinophils Absolute Auto 0.3 K/mm3 (0-0.3); Hematocrit 35.4 % (42.0-52.0); Hemoglobin 12.2 g/dL (14.0-18.0); Immature Granulocyte Absolute 0.07 K/mm3 (0.00-0.031); Immature Granulocyte Percent A 0.8 % (0-0.5); Lymphocytes Absolute Auto 2.19 K/mm3 (0.9-3.2); Lymphocytes Percent Auto 23.5 % (18.3-44.2); Mean Corpuscular HGB Conc 34.5 g/dl (32-36); Mean Corpuscular Hemoglobin 31.4 pg (26-34); Mean Platelet Volume 10.5 fl (7.4-10.4); Monocytes Absolute Auto 0.7 K/mm3 (0.1-0.6); Monocytes Percent Auto 7.9 % (2.6-8.5); Neutrophils Percent Auto 64.2 % (45.5-73.1); Platelet Count Result 225 k/mm3 (150-375); Red Blood Count 3.89 M/mm3 (4.6-6.20); Red Cell Distribution Width 13.2 % (11.5-14.5); White Blood Count 9.3 K/mm3 (4.5-10.0)
[2024-07-17 05:07] LABS: Alanine Aminotransferase 24 U/L (6-50); Albumin Level 4.2 g/dL (3.5-5.1); Alkaline Phosphatase 107 U/L (38-126); Anion Gap 8 mmol/L (4-12); Aspartate Amino Transferase 31 U/L (17-59); Bilirubin,Total 0.4 mg/dL (0.2-1.3); Blood Urea Nitrogen 39 mg/dL (9-20); Calcium 10.8 mg/dL (8.4-10.2); Carbon Dioxide 28 mmol/L (22-30); Chloride 99 mmol/L (98-107); Estimated CRCL calculation 27 ml/min; Estimated Glomerular Filt Rate 33; Glucose 138 mg/dL (65-110); Potassium 3.7 mmol/L (3.4-5.0); Sodium 135 mmol/L (137-145)
[2024-07-17 07:56] LABS: Glucose Point of Care 122 mg/dl (65-105)
[2024-07-17] MEDS: TICAGRELOR 60 MG TABLET PO ×2 (09:14→20:37)
[2024-07-17] MEDS: ROSUVASTATIN 20 MG TABLET 40 MG PO (09:14)
[2024-07-17] MEDS: PANTOPRAZOLE 40 MG TABLET PO (09:14)
[2024-07-17] MEDS: MIDODRINE HCL 10 MG TABLET PO ×3 (09:14→17:10)
[2024-07-17] MEDS: METOPROLOL TARTRATE 25 MG TABLET PO ×2 (09:14→20:49)
[2024-07-17] MEDS: PENTOXIFYLLINE 400 MG TABCR PO ×3 (09:14→17:10)
[2024-07-17] MEDS: allopurinoL 300 MG TABLET PO (09:14)
[2024-07-17] MEDS: ASPIRIN 81 MG ENTERIC TABLET PO (09:14)
--- NOTE | 2024-07-17 09:25 | P.PNNP_ITS ---
Progress Note: A&P Assessment and Plan (1) JOEY (acute kidney injury): Code(s): N17.9 - Acute kidney failure, unspecified Status: Acute Assessment and Plan: * elevated above baseline on admission * Renal ultrasound unremarkable * UA shows 1+ protein * urine electrolytes and fractional excretion of urea were non pre renal. * CK only slightly elevated, not enough to impact kidney function. * possibly related to fluctuating hemodynamics/orthostatic hypotension * now complicate by contrast exposure x 2 (CT chest PE protocol and cardiac cath) * Creatinine is stable at 2.0. (2) Stage 3b chronic kidney disease: Code(s): N18.32 - Chronic kidney disease, stage 3b Status: Chronic Assessment and Plan: * baseline creatinine runs ~ 1.3 - 1.8mg/dl in the last year * presumably due to HTN, diabetes, vascular disease and age-related change (3) Light-headedness: Code(s): R42 - Dizziness and giddiness Status: Acute Assessment and Plan: * consistent with orthostatic hypotension * agree with adequate hydration * Amlodipine and chlorthalidone both stopped. * DEAN hose and abdominal binder are on * on midodrine therapy on 10 3 times a day. * Cardiology following * s/p cardiac catheterization - findings noted * TSH is normal. Cortisol is pending as well as SPEP * because his blood pressure is high in the ED and low during the day will change his metoprolol tartrate to25mg q.h.s.. Since his GFR is low the metoprolol tartrate will last longer than just the 12hours that usually lasts * follow repeat orthostatic BPs Subjective Date/time seen: 07/17/24 09:25 Interval history: Mitchell is feeling about the same today. He just did his orthostatics and dropped his blood pressure to the high 80s. He feels blah because of this however not as bad as yesterday. Exam Narrative: WDWN in NAD skin no rash head ncat lungs clear bilateral cor reg no rub Or gallop abd BS+ nontender and soft ext no edema. Objective Data Vital Signs Vital Signs: Vital Signs - 24 hr 07/16/24 11:26 07/16/24 11:27 07/16/24 11:28 Temperature 97.9 F Pulse Rate 79 Respiratory Rate 16 Blood Pressure 138/44 L 116/42 L 92/49 L Pulse Oximetry 99 Oxygen Delivery 11/16/24 10:00 07/16/24 12:00 07/16/24 14:00 Temperature Pulse Rate 84 77 83 Respiratory Rate Blood Pressure Pulse Oximetry Oxygen Delivery 07/16/24 15:31 07/16/24 16:00 07/16/24 18:00 Temperature 98.2 F Pulse Rate 83 82 85 Respiratory Rate 16 Blood Pressure 145/43 H Pulse Oximetry 99 Oxygen Delivery 07/16/24 20:03 07/16/24 20:04 07/16/24 20:05 Temperature 98.0 F Pulse Rate 83 98 Respiratory Rate 18 Blood Pressure 149/56 H 149/56 H 109/53 L Pulse Oximetry 100 Oxygen Delivery 07/16/24 20:06 07/16/24 21:03 07/16/24 20:00 Temperature Pulse Rate 100 95 Respiratory Rate Blood Pressure 95/47 L Pulse Oximetry Oxygen Delivery Room Air 07/16/24 23:59 07/17/24 00:00 07/16/24 20:00 Temperature 97.6 F Pulse Rate 74 89 Respiratory Rate 18 Blood Pressure 166/54 H Pulse Oximetry 100 Oxygen Delivery Room Air 07/16/24 22:00 07/17/24 00:00 07/17/24 02:00 Temperature Pulse Rate 82 69 67 Respiratory Rate Blood Pressure Pulse Oximetry Oxygen Delivery 07/17/24 04:00 07/17/24 04:00 07/17/24 05:20 Temperature 97.6 F Pulse Rate 75 70 Respiratory Rate 18 Blood Pressure 151/47 H Pulse Oximetry 100 Oxygen Delivery Room Air 07/17/24 06:00 07/17/24 07:57 07/17/24 07:59 Temperature 98.2 F 98.2 F Pulse Rate 82 100 100 Respiratory Rate 16 16 Blood Pressure 149/59 H 149/59 H Pulse Oximetry 98 98 Oxygen Delivery 07/17/24 07:58 07/17/24 07:58 07/17/24 09:10 Temperature Pulse Rate 92 Respiratory Rate Blood Pressure 100/56 L 85/35 L 150/55 H Pulse Oximetry Oxygen Delivery 07/17/24 09:10 07/17/24 09:11 Temperature Pulse Rate 103 H 116 H Respiratory Rate Blood Pressure 107/59 L 99/42 L Pulse Oximetry Oxygen Delivery Intake/Output Intake/Output: Intake & Output 07/14/24 07/15/24 07/16/24/17/24 23:59 23:59 23:59 23:59 Intake Total 920 1480 1270 790 Output Total 400 3450 650 Balance 920 3438 -3363 140 Meds/Results Medications: Active Medications Generic Name Dose Route Start Last Admin Trade Name Freq PRN Reason Stop Dose Admin Allopurinol 300 mg 07/11/24 09:00 07/17/24 09:14 Allopurinol 300 Mg Tablet PO 300 mg DAILY [facility] Administration Alprazolam 0.5 mg 07/10/24 22:47 07/16/24 23:05 Alprazolam (*Crx) 0.5 Mg Tablet PO 0.5 mg TID PRN Administration Anxiety Aspirin 81 mg 07/11/24 09:00 07/17/24 09:14 Aspirin 81 Mg Enteric Tablet PO 81 mg DAILY [facility] Administration Docusate Sodium 100 mg 07/12/24 17:11 07/12/24 17:31 Docusate Sodium 100 Mg Capsule PO 100 mg Q12H PRN Administration Constipation Famotidine 20 mg 07/12/24 17:00 07/16/24 17:09 Famotidine 20 Mg Tablet PO 20 mg 1700 CL[facility]IS[facility] Administration Metoprolol Tartrate 25 mg 07/15/24 21:00 07/17/24 09:14 Metoprolol Tartrate 25 Mg Tablet PO 25 mg Q12HR [facility] Administration Midodrine 10 mg 07/16/24 09:00 07/17/24 09:14 Midodrine Hcl 10 Mg Tablet PO 10 mg TID [facility] Administration Miscellaneous Information 0 each 07/10/24 00:01 07/11/24 00:26 Kerendia = Nonformulary. Can Pt Use From Home? XX 08/09/24 00:00 Not Given CLARIFY [facility] Nitroglycerin 0.4 mg 07/11/24 19:56 Nitroglycerin Sl 0.4 Mg Tablet SUBLINGUAL Q5MIN PRN Chest Pain Nortriptyline HCl 25 mg 07/10/24 21:00 07/16/24 21:03 Nortriptyline Hcl 25 Mg Capsule PO 25 mg QHS [facility] Administration Pantoprazole Sodium 40 mg 07/11/24 09:00 07/17/24 09:14 Pantoprazole 40 Mg Tablet PO 40 mg DAILY [facility] Administration Pentoxifylline 400 mg 07/11/24 09:00 07/17/24 09:14 Pentoxifylline 400 Mg Tabcr PO 400 mg TID [facility] Administration Rosuvastatin Calcium 40 mg 07/11/24 09:00 07/17/24 09:14 Rosuvastatin 20 Mg Tablet PO 40 mg DAILY [facility] Administration Ticagrelor 60 mg 07/10/24 21:00 07/17/24 09:14 Ticagrelor 60 Mg Tablet PO 60 mg Q12HR CL[facility]IS[facility] Administration Radiology Results: ITS Impressions Head CT 07/10/24 17:22 IMPRESSION: No acute intracranial process. Chest X-Ray 07/10/24 17:51 IMPRESSION: No acute cardiopulmonary process. Chest CTA 07/10/24 19:38 IMPRESSION: No CT evidence of acute pulmonary embolus. No acute process detected in the chest. ADDENDUM: 07/10/24 1950 1.7 cm right thyroid nodule, consider nonemergent outpatient thyroid ultrasound for further evaluation. Renal Ultrasound 07/16/24 08:17 IMPRESSION: 1. Normal kidney sizes. No hydronephrosis. Carotid Doppler Study 07/17/24 09:13 Impression: Mildly elevated velocities in the right internal carotid artery suggest moderate (50-69%) stenosis. Retrograde flow in the right vertebral artery. Consider subclavian steal syndrome. Note: The methodology used is an indirect measurement validated against a direct method (such as the NASCET criteria) that compares diameters at the stenosis to the distal ICA. Labs Labs: Laboratory Results - last 24 hr 07/16/24 07/16/24 07/16/24 04:37 07:27 07:28 WBC RBC Hgb Hct MCV MCH MCHC RDW Plt Count MPV Immature Gran % (Auto) Neut % (Auto) Lymph % (Auto) [place] % (Auto) Eos % (Auto) Baso % (Auto) Lymph # (Auto) [place] # (Auto) Eos # (Auto) Baso # (Auto) Abs Immat Gran (auto) Absolute Neuts (auto) Absolute Nucleated RBC Nucleated RBC % Sodium Potassium Chloride Carbon Dioxide Anion Gap BUN Creatinine Estim Creat Clear Calc Estimated GFR Glucose POC Capillary Glucose Calcium Total Bilirubin AST ALT Alkaline Phosphatase Total Creatine Kinase 183 H Total Protein Albumin TSH (Reflex) 1.880 Urine Color Yellow Urine Appearance Clear Urine pH 5.0 Ur Specific [place] 1.023 Urine Protein 1+ H Urine Glucose (UA) Negative Urine Ketones Negative Ur Blood (Man) Negative Urine Nitrate Negative Urine Bilirubin Negative Urine Urobilinogen 0.2 Leukocyte Esterase Rfl Negative Urine RBC 0-2 Urine WBC 0-5 Ur Squamous Epith Cells None seen Urine Bacteria None seen Urine Casts 3-5 Urine Eosinophils None seen U Random Total Protein 30 Cancelled Ur Random Sodium 81 Ur Random Urea 640 Urine Total Volume Cancelled Urine Creatinine 71.4 Cancelled Protein/Creat Ratio 2 0.42 H 07/16/24 07/16/24 07/16/24 11:24 15:33 20:09 WBC RBC Hgb Hct MCV MCH MCHC RDW Plt Count MPV Immature Gran % (Auto) Neut % (Auto) Lymph % (Auto) [place] % (Auto) Eos % (Auto) Baso % (Auto) Lymph # (Auto) [place] # (Auto) Eos # (Auto) Baso # (Auto) Abs Immat Gran (auto) Absolute Neuts (auto) Absolute Nucleated RBC Nucleated RBC % Sodium Potassium Chloride Carbon Dioxide Anion Gap BUN Creatinine Estim Creat Clear Calc Estimated GFR Glucose POC Capillary Glucose 159 H 178 H 142 H Calcium Total Bilirubin AST ALT Alkaline Phosphatase Total Creatine Kinase Total Protein Albumin TSH (Reflex) Urine Color Urine Appearance Urine pH Ur Specific [place] Urine Protein Urine Glucose (UA) Urine Ketones Ur Blood (Man) Urine Nitrate Urine Bilirubin Urine Urobilinogen Leukocyte Esterase Rfl Urine RBC Urine WBC Ur Squamous Epith Cells Urine Bacteria Urine Casts Urine Eosinophils U Random Total Protein Ur Random Sodium Ur Random Urea Urine Total Volume Urine Creatinine Protein/Creat Ratio 2 07/17/24 07/17/24 04:47 07:47 WBC 9.3 RBC 3.89 L Hgb 12.2 L Hct 35.4 L MCV 91.0 MCH 31.4 MCHC 34.5 RDW 13.2 Plt Count 225 MPV 10.5 H Immature Gran % (Auto) 0.8 H Neut % (Auto) 64.2 Lymph % (Auto) 23.5 [place] % (Auto) 7.9 Eos % (Auto) 3.0 Baso % (Auto) 0.6 Lymph # (Auto) 2.19 [place] # (Auto) 0.7 H Eos # (Auto) 0.3 Baso # (Auto) 0.1 Abs Immat Gran (auto) 0.07 H Absolute Neuts (auto) 6.0 Absolute Nucleated RBC 0.000 Nucleated RBC % 0.0 Sodium 135 L Potassium 3.7 Chloride 99 Carbon Dioxide 28 Anion Gap 8 BUN 39 H Creatinine 2.00 H Estim Creat Clear Calc 27 Estimated GFR 33 L Glucose 138 H POC Capillary Glucose 122 H Calcium 10.8 H Total Bilirubin 0.4 AST 31 ALT 24 Alkaline Phosphatase 107 Total Creatine Kinase Total Protein 8.0 Albumin 4.2 TSH (Reflex) Urine Color Urine Appearance Urine pH Ur Specific [place] Urine Protein Urine Glucose (UA) Urine Ketones Ur Blood (Man) Urine Nitrate Urine Bilirubin Urine Urobilinogen Leukocyte Esterase Rfl Urine RBC Urine WBC Ur Squamous Epith Cells Urine Bacteria Urine Casts Urine Eosinophils U Random Total Protein Ur Random Sodium Ur Random Urea Urine Total Volume Urine Creatinine Protein/Creat Ratio 2
--- NOTE | 2024-07-17 09:48 | P.PNIM_ITS ---
Progress Note: A&P Assessment and Plan (1) Light-headedness: Code(s): R42 - Dizziness and giddiness Status: Acute Assessment and Plan: * Likely secondary to orthostatic hypotension. * Orthostatic blood pressure remain +ve from supine to standing position. * Orthostatics improved from sitting to standing with abdominal binder use. * Patient advised to wear abdominal binder before standing. * Continue to maintain adequate hydration. * TEDS in place. * Caution when transitioning from sitting or lying to standing. * Continue fall precautions. * Continue Midodrine 10 mg PO TID. * Cardiology following. * ECHO 07/11/24 showed EF > 70%. * Continue Metoprolol and allow for high normal BP's due to orthostatic hypotension. (2) Exertional dyspnea: Code(s): R06.09 - Other forms of dyspnea Status: Acute Assessment and Plan: * Resolved or possibly near resolution. * Denies symptoms currently. * Good O2 sats > 90 % on RA. * CXR negative for acute. * CTA chest negative for PE or acute process. * Continue to monitor for now. (3) CAD (coronary artery disease): Qualifiers: Coronary Disease-Associated Artery/Lesion type: [place] artery [place] vs. transplanted heart: [place] heart Associated angina: without angina Qualified Code(s): I25.10 - Atherosclerotic heart disease of [place] coronary artery without angina pectoris Code(s): I25.10 - Atherosclerotic heart disease of [place] coronary artery without angina pectoris Status: Acute Assessment and Plan: * s/p LHC with no significant coronary occlusion observerd. * Continue ASA, Brilinta 60mg b.i.d. (per [place] [facility]ology) * Continue statin * Risk factor modification for CAD. (4) JOEY (acute kidney injury): Code(s): N17.9 - Acute kidney failure, unspecified Status: Acute Assessment and Plan: improving * In 10/24 Cr 1.3. * s/p Contrast exposure with CTA chest and LHC. * Nephro consulted and we'll continue to monitor Cr trend 2.0>>1.9>>2.0 * Work-up labs per nephro pending. * Encourage hydration. * Avoid nephrotoxins. * Continue further mgt per home health outreach coordinator. * Meds dosing per renal function. (5) Chronic kidney disease, stage 3a: Code(s): N18.31 - Chronic kidney disease, stage 3a Status: Acute Assessment and Plan: - Mgt as # 4. - [employer]ing [employer] Operator following. - Monitor renal function closely. (6) Hypomagnesemia: Code(s): E83.42 - Hypomagnesemia Status: Acute Assessment and Plan: * Repleted and currently wnl. * Monitor labs closely. (7) GERD (gastroesophageal reflux disease): Code(s): K21.9 - Gastro-esophageal reflux disease without esophagitis Status: Acute Assessment and Plan: * Pantoprazole 40 mg PO daily. Plan Continue to monitor closely for orthostatic hypotension. Maintain fall precautions and monitor renal function closely. Time Spent With Patient Time with patient: 15 - 25 minutes Subjective Date/time seen: 07/17/24 09:48 Patient calm on bedrest and states he feels alright. States he has no dizziness when seated or laying semi-fowlers on the bed, only when standing. Reports orthostatic BP checked earlier but he didn't have abdominal binder in place. Interval history: Patient calm on bedrest and looks to be in no acute distress. Abdominal binder noted bedside. Review of Systems Review of Systems: lightheadedness with standing position. All systems reviewed & are unremarkable except as noted in HPI and below Exam Narrative: HEENT: Atraumatic, PERRL, EOM, non-icteric, moist mucus membranes. NECK: Supple. Lungs: Clear bilaterally. HEART: RRR, no murmurs. ABDOMEN: Soft, non-tender, non-distended, +ve bowel sounds. EXTREMITIES: No edema, +ve pedal pulses, teds in place. SKIN: [place] and dry, no lesions. NEURO: Well oriented. No focal neuro deficits noted. PSYCH: Pleasant and co-operative. Objective Data Vital Signs Vital Signs: Vital Signs - 24 hr 07/16/24 11:26 07/16/24 11:27 07/16/24 11:28 Temperature 97.9 F Pulse Rate 79 Respiratory Rate 16 Blood Pressure 138/44 L 116/42 L 92/49 L Pulse Oximetry 99 Oxygen Delivery 07/16/24 10:00 07/16/24 12:00 07/16/24 14:00 Temperature Pulse Rate 84 77 83 Respiratory Rate Blood Pressure Pulse Oximetry Oxygen Delivery 07/16/24 15:31 07/16/24 16:00 07/16/24 18:00 Temperature 98.2 F Pulse Rate 83 82 85 Respiratory Rate 16 Blood Pressure 145/43 H Pulse Oximetry 99 Oxygen Delivery 07/16/24 20:03 07/16/24 20:04 07/16/24 20:05 Temperature 98.0 F Pulse Rate 83 98 Respiratory Rate 18 Blood Pressure 149/56 H 149/56 H 109/53 L Pulse Oximetry 100 Oxygen Delivery 07/16/24 20:06 07/16/24 21:03 07/16/24 20:00 Temperature Pulse Rate 100 95 Respiratory Rate Blood Pressure 95/47 L Pulse Oximetry Oxygen Delivery Room Air 07/16/24 23:59 07/17/24 00:00 07/16/24 20:00 Temperature 97.6 F Pulse Rate 74 89 Respiratory Rate 18 Blood Pressure 166/54 H Pulse Oximetry 100 Oxygen Delivery Room Air 07/16/24 22:00 07/17/24 00:00 07/17/24 02:00 Temperature Pulse Rate 82 69 67 Respiratory Rate Blood Pressure Pulse Oximetry Oxygen Delivery 07/17/24 04:00 07/17/24 04:00 07/17/24 05:20 Temperature 97.6 F Pulse Rate 75 70 Respiratory Rate 18 Blood Pressure 151/47 H Pulse Oximetry 100 Oxygen Delivery Room Air 07/17/24 06:00 07/17/24 07:57 07/17/24 07:59 Temperature 98.2 F 98.2 F Pulse Rate 82 100 100 Respiratory Rate 16 16 Blood Pressure 149/59 H 149/59 H Pulse Oximetry 98 98 Oxygen Delivery 07/17/24 07:58 07/17/24 07:58 07/17/24 09:10 Temperature Pulse Rate 92 Respiratory Rate Blood Pressure 100/56 L 85/35 L 150/55 H Pulse Oximetry Oxygen Delivery 07/17/24 09:10 07/17/24 09:11 Temperature Pulse Rate 103 H 116 H Respiratory Rate Blood Pressure 107/59 L 99/42 L Pulse Oximetry Oxygen Delivery Intake/Output Intake/Output: Intake & Output 07/14/24 07/15/24 07/16/24 07/17/24 23:59 23:59 23:59 23:59 Intake Total 920 1480 1270 790 Output Total 400 3450 650 Balance 920 4185 -0597 140 Meds/Results Medications: Active Medications Generic Name Dose Route Start Last Admin Trade Name Modeq PRN Reason Stop Dose Admin Allopurinol 300 mg 07/11/24 09:00 07/17/24 09:14 Allopurinol 300 Mg Tablet PO 300 mg DAILY CLARISSA Administration Alprazolam 0.5 mg 07/10/24 22:47 07/16/24 23:05 Alprazolam (*Crx) 0.5 Mg Tablet PO 0.5 mg TID PRN Administration Anxiety Aspirin 81 mg 07/11/24 09:00 07/17/24 09:14 Aspirin 81 Mg Enteric Tablet PO 81 mg DAILY CLARISSA Administration Docusate Sodium 100 mg 07/12/24 17:11 07/12/24 17:31 Docusate Sodium 100 Mg Capsule PO 100 mg Q12H PRN Administration Constipation Famotidine 20 mg 07/12/24 17:00 07/16/24 17:09 Famotidine 20 Mg Tablet PO 20 mg 1700 CLARISSA Administration Metoprolol Tartrate 25 mg 07/15/24 21:00 07/17/24 09:14 Metoprolol Tartrate 25 Mg Tablet PO 07/17/24 21:00 25 mg Q12HR CLARISSA Administration Metoprolol Tartrate 25 mg 07/18/24 21:00 Metoprolol Tartrate 25 Mg Tablet PO Q24H [facility] Midodrine 10 mg 07/16/24 09:00 07/17/24 09:14 Midodrine Hcl 10 Mg Tablet PO 10 mg TID [facility] Administration Miscellaneous Information 0 each 07/10/24 00:01 07/11/24 00:26 Kerendia = Nonformulary. Can Pt Use From Home? XX 08/09/24 00:00 Not Given CLARIFY CLARISSA Nitroglycerin 0.4 mg 07/11/24 19:56 Nitroglycerin Sl 0.4 Mg Tablet SUBLINGUAL Q5MIN PRN Chest Pain Nortriptyline HCl 25 mg 07/10/24 21:00 07/16/24 21:03 Nortriptyline Hcl 25 Mg Capsule PO 25 mg QHS CLARISSA Administration Pantoprazole Sodium 40 mg 07/11/24 09:00 07/17/24 09:14 Pantoprazole 40 Mg Tablet PO 40 mg DAILY CLARISSA Administration Pentoxifylline 400 mg 07/11/24 09:00 07/17/24 09:14 Pentoxifylline 400 Mg Tabcr PO 400 mg TID CLARISSA Administration Rosuvastatin Calcium 40 mg 07/11/24 09:00 07/17/24 09:14 Rosuvastatin 20 Mg Tablet PO 40 mg DAILY CLARISSA Administration Ticagrelor 60 mg 07/10/24 21:00 07/17/24 09:14 Ticagrelor 60 Mg Tablet PO 60 mg Q12HR CLARISSA Administration Radiology Results: ITS Impressions Head CT 07/10/24 17:22 IMPRESSION: No acute intracranial process. Chest X-Ray 07/10/24 17:51 IMPRESSION: No acute cardiopulmonary process. Chest CTA 07/10/24 19:38 IMPRESSION: No CT evidence of acute pulmonary embolus. No acute process detected in the chest. ADDENDUM: 07/10/24 1950 1.7 cm right thyroid nodule, consider nonemergent outpatient thyroid ultrasound for further evaluation. Renal Ultrasound 07/16/24 08:17 IMPRESSION: 1. Normal kidney sizes. No hydronephrosis. Carotid Doppler Study 07/17/24 09:13 Impression: Mildly elevated velocities in the right internal carotid artery suggest moderate (50-69%) stenosis. Retrograde flow in the right vertebral artery. Consider subclavian steal syndrome. Note: The methodology used is an indirect measurement validated against a direct method (such as the NASCET criteria) that compares diameters at the stenosis to the distal ICA. Labs Labs: Laboratory Results - last 24 hr 07/16/24 07/16/24 07/16/24 04:37 07:28 11:24 WBC RBC Hgb Hct MCV MCH MCHC RDW Plt Count MPV Immature Gran % (Auto) Neut % (Auto) Lymph % (Auto) [place] % (Auto) Eos % (Auto) Baso % (Auto) Lymph # (Auto) [place] # (Auto) Eos # (Auto) Baso # (Auto) Abs Immat Gran (auto) Absolute Neuts (auto) Absolute Nucleated RBC Nucleated RBC % Sodium Potassium Chloride Carbon Dioxide Anion Gap BUN Creatinine Estim Creat Clear Calc Estimated GFR Glucose POC Capillary Glucose 159 H Calcium Total Bilirubin AST ALT Alkaline Phosphatase Total Creatine Kinase 183 H Total Protein Albumin TSH (Reflex) 1.880 Urine Color Yellow Urine Appearance Clear Urine pH 5.0 Ur Specific [place] 1.023 Urine Protein 1+ H Urine Glucose (UA) Negative Urine Ketones Negative Ur Blood (Man) Negative Urine Nitrate Negative Urine Bilirubin Negative Urine Urobilinogen 0.2 Leukocyte Esterase Rfl Negative Urine RBC 0-2 Urine WBC 0-5 Ur Squamous Epith Cells None seen Urine Bacteria None seen Urine Casts 3-5 Urine Eosinophils None seen U Random Total Protein Cancelled Ur Random Sodium 81 Ur Random Urea 640 Urine Total Volume Cancelled Urine Creatinine Cancelled 07/16/24 07/16/24 07/17/24 15:33 20:09 04:47 WBC 9.3 RBC 3.89 L Hgb 12.2 L Hct 35.4 L MCV 91.0 MCH 31.4 MCHC 34.5 RDW 13.2 Plt Count 225 MPV 10.5 H Immature Gran % (Auto) 0.8 H Neut % (Auto) 64.2 Lymph % (Auto) 23.5 [place] % (Auto) 7.9 Eos % (Auto) 3.0 Baso % (Auto) 0.6 Lymph # (Auto) 2.19 [place] # (Auto) 0.7 H Eos # (Auto) 0.3 Baso # (Auto) 0.1 Abs Immat Gran (auto) 0.07 H Absolute Neuts (auto) 6.0 Absolute Nucleated RBC 0.000 Nucleated RBC % 0.0 Sodium 135 L Potassium 3.7 Chloride 99 Carbon Dioxide 28 Anion Gap 8 BUN 39 H Creatinine 2.00 H Estim Creat Clear Calc 27 Estimated GFR 33 L Glucose 138 H POC Capillary Glucose 178 H 142 H Calcium 10.8 H Total Bilirubin 0.4 AST 31 ALT 24 Alkaline Phosphatase 107 Total Creatine Kinase Total Protein 8.0 Albumin 4.2 TSH (Reflex) Urine Color Urine Appearance Urine pH Ur Specific [place] Urine Protein Urine Glucose (UA) Urine Ketones Ur Blood (Man) Urine Nitrate Urine Bilirubin Urine Urobilinogen Leukocyte Esterase Rfl Urine RBC Urine WBC Ur Squamous Epith Cells Urine Bacteria Urine Casts Urine Eosinophils U Random Total Protein Ur Random Sodium Ur Random Urea Urine Total Volume Urine Creatinine 07/17/24 07:47 WBC RBC Hgb Hct MCV MCH MCHC RDW Plt Count MPV Immature Gran % (Auto) Neut % (Auto) Lymph % (Auto) [place] % (Auto) Eos % (Auto) Baso % (Auto) Lymph # (Auto) [place] # (Auto) Eos # (Auto) Baso # (Auto) Abs Immat Gran (auto) Absolute Neuts (auto) Absolute Nucleated RBC Nucleated RBC % Sodium Potassium Chloride Carbon Dioxide Anion Gap BUN Creatinine Estim Creat Clear Calc Estimated GFR Glucose POC Capillary Glucose 122 H Calcium Total Bilirubin AST ALT Alkaline Phosphatase Total Creatine Kinase Total Protein Albumin TSH (Reflex) Urine Color Urine Appearance Urine pH Ur Specific [place] Urine Protein Urine Glucose (UA) Urine Ketones Ur Blood (Man) Urine Nitrate Urine Bilirubin Urine Urobilinogen Leukocyte Esterase Rfl Urine RBC Urine WBC Ur Squamous Epith Cells Urine Bacteria Urine Casts Urine Eosinophils U Random Total Protein Ur Random Sodium Ur Random Urea Urine Total Volume Urine Creatinine Quality VTE Prophylaxis VTE prophylaxis: mechanical ordered Hospitalist MIPS Advance Care Plan I have confirmed that the patient's Advanced Care Plan is present, code status is documented, or surrogate decision maker is listed in patient medical record.: Yes Medication Reconciliation I have utilized all available resources to obtain, update and review the patients current medications (includes all prescriptions, OTC, herbals, cannabis, and nutritional supplements).: Yes
[2024-07-17 12:01] LABS: Glucose Point of Care 196 mg/dl (65-105)
[2024-07-17 16:40] LABS: Glucose Point of Care 149 mg/dl (65-105)
[2024-07-17] MEDS: FAMOTIDINE 20 MG TABLET PO (17:12)
--- NOTE | 2024-07-17 20:26 | ECG_ITS ---
Test Date: 2024-07-17 20:41:32 Measurements Intervals [place] Rate: 78 P: 26 HI: 199 QRS: -15 QRSD: 110 T: 60 QT: 374 QTc: 427 Interpretive Statements SINUS RHYTHM DELAYED PRECORDIAL R/S TRANSITION LEFT VENTRICULAR HYPERTROPHY WITH ST-T CHANGE BASELINE ARTIFACT- I, II, III, AVR, AVL, AVF BORDERLINE ECG Compared to ECG 07/13/2024 12:47:59 HEART RATE HAS DECREASED Electronically Signed On 07-18-2024 06:34:53 UROLOGY PHYSICIAN by Jovanny Mcduffie D.O.
[2024-07-17] MEDS: NORTRIPTYLINE HCL 25 MG CAPSULE PO (20:37)
[2024-07-17] MEDS: ALPRAZolam (*CRX) 0.5 MG TABLET PO (20:37)
[2024-07-17 20:47] LABS: Glucose Point of Care 183 mg/dl (65-105)
[2024-07-18] VITALS (17 sets, daily range): BP systolic 83–166; BP diastolic 38–92; PULSE 65–112; RESP 15–22; TEMP 36.5–37.2; O2SAT 94–100
[2024-07-18 04:27] LABS: Basophils Absolute Auto 0.1 K/mm3 (0.0-0.1); Basophils Percent Auto 0.7 % (0.2-1.2); Eosinophils Absolute Auto 0.3 K/mm3 (0-0.3); Eosinophils Percent Auto 2.8 % (0-4.4); Hematocrit 31.2 % (42.0-52.0); Hemoglobin 10.5 g/dL (14.0-18.0); Immature Granulocyte Absolute 0.08 K/mm3 (0.00-0.031); Immature Granulocyte Percent A 0.8 % (0-0.5); Lymphocytes Absolute Auto 2.22 K/mm3 (0.9-3.2); Lymphocytes Percent Auto 22.8 % (18.3-44.2); Mean Corpuscular HGB Conc 33.7 g/dl (32-36); Mean Corpuscular Hemoglobin 30.9 pg (26-34); Mean Corpuscular Volume 91.8 fl (80-100); Mean Platelet Volume 10.4 fl (7.4-10.4); Monocytes Absolute Auto 0.9 K/mm3 (0.1-0.6); Monocytes Percent Auto 8.7 % (2.6-8.5); Neutrophils Absolute Auto 6.3 K/mm3 (1.3-6.7); Neutrophils Percent Auto 64.2 % (45.5-73.1); Platelet Count Result 233 k/mm3 (150-375); Red Cell Distribution Width 13.2 % (11.5-14.5); White Blood Count 9.8 K/mm3 (4.5-10.0)
[2024-07-18 04:37] LABS: Alanine Aminotransferase 24 U/L (6-50); Albumin Level 3.9 g/dL (3.5-5.1); Alkaline Phosphatase 109 U/L (38-126); Anion Gap 5 mmol/L (4-12); Aspartate Amino Transferase 32 U/L (17-59); Bilirubin,Total 0.5 mg/dL (0.2-1.3); Blood Urea Nitrogen 34 mg/dL (9-20); Calcium 10.7 mg/dL (8.4-10.2); Carbon Dioxide 30 mmol/L (22-30); Chloride 100 mmol/L (98-107); Estimated CRCL calculation 25 ml/min; Estimated Glomerular Filt Rate 31; Glucose 131 mg/dL (65-110); Potassium 3.8 mmol/L (3.4-5.0); Sodium 135 mmol/L (137-145)
[2024-07-18] MEDS: ASPIRIN 81 MG ENTERIC TABLET PO (07:58)
[2024-07-18] MEDS: ROSUVASTATIN 20 MG TABLET 40 MG PO (07:58)
[2024-07-18] MEDS: MIDODRINE HCL 10 MG TABLET PO ×3 (07:58→16:36)
[2024-07-18] MEDS: PENTOXIFYLLINE 400 MG TABCR PO ×3 (07:58→16:36)
[2024-07-18] MEDS: TICAGRELOR 60 MG TABLET PO ×2 (07:58→22:22)
[2024-07-18] MEDS: PANTOPRAZOLE 40 MG TABLET PO (07:58)
[2024-07-18] MEDS: allopurinoL 300 MG TABLET PO (07:58)
[2024-07-18 08:18] LABS: Glucose Point of Care 127 mg/dl (65-105)
--- NOTE | 2024-07-18 08:47 | P.PNIM_ITS ---
Progress Note: A&P Assessment and Plan (1) Orthostatic hypotension: Code(s): I95.1 - Orthostatic hypotension Status: Acute Assessment and Plan: * Cardiology and nephrology consulted and following * Continue midodrine 10 mg t.i.d. * Continue abdominal binder and Mt hose * Continue checking orthostatic blood pressures Q shift * Change positions slowly * Neurology consulted for further assistance of orthostatic hypotension * Cortisol pending * Will check thyroid function * Shayleef unfortunately would be contraindicated for him due to his CKD. * Stop nortriptyline and start pyridostigmine 30 mg TID per Neurology re commendation * Monitor for any bradycardias * Stay in IMU for now due to potential bradycardia (2) JOEY (acute kidney injury): Code(s): N17.9 - Acute kidney failure, unspecified Status: Acute Assessment and Plan: * Creatinine 2.10 * Baseline 1.3 * S/P contrast exposure with CTA chest and cardiac catheterization. * Nephrology following * Avoid nephrotoxins * Renally adjust medications as appropriate (3) Chronic kidney disease, stage 3a: Code(s): N18.31 - Chronic kidney disease, stage 3a Status: Chronic Assessment and Plan: See above (4) Exertional dyspnea: Code(s): R06.09 - Other forms of dyspnea Status: Resolved Assessment and Plan: * Resolved * Denies symptoms currently. * Good O2 sats > 90 % on RA. * CXR negative for acute. * CTA chest negative for PE or acute process. * Continue to monitor for now. (5) CAD (coronary artery disease): Qualifiers: Associated angina: without angina Coronary Disease-Associated Artery/Lesion type: [place] artery [place] vs. transplanted heart: [place] heart Qualified Code(s): I25.10 - Atherosclerotic heart disease of [place] coronary artery without angina pectoris Code(s): I25.10 - Atherosclerotic heart disease of [place] coronary artery without angina pectoris Status: Chronic Assessment and Plan: * s/p LHC with no significant coronary occlusion observed. * Continue ASA, Brilinta 60mg b.i.d. (per [facility]) and statin * Cardiology following (6) GERD (gastroesophageal reflux disease): Code(s): K21.9 - Gastro-esophageal reflux disease without esophagitis Status: Chronic Assessment and Plan: * Continue Pantoprazole 40 mg PO daily. (7) Type 2 diabetes mellitus without complications: Qualifiers: Diabetes mellitus half-way insulin use: without half-way use Qualified Code(s): E11.9 - Type 2 diabetes mellitus without complications Code(s): E11.9 - Type 2 diabetes mellitus without complications Status: Chronic Assessment and Plan: * Blood sugars ranging 127-149 * Hgb A1C 7.9 on 08/13/22 * Will recheck Hgb A1C * Accu checks AC/HS * Moderate dose SSI ordered * hypoglycemic protocol in place * Diabetic diet ordered Time Spent With Patient Time with patient: Greater than 35 minutes Subjective Date/time seen: 07/18/24 08:47 Interval history: This is a 73 year old male who presented to the hospital who presented to the hospital on 07/10/24 with complaints of dizziness. Work up in hospital included a head CT which was negative. Chest x-ray was negative. Chest CT was negative for pulmonary embolism. Renal ultrasound showed bilateral lobe a hill, diverticulum in the left side of the urinary bladder, normal size kidneys, no hydronephrosis. Carotid Doppler study showed mildly elevated velocities in the right internal carotid artery suggesting moderate stenosis, retrograde flow in the right vertebral artery. Initial labs showed a white blood cell count of 10.5, RBC 4.07, hemoglobin 12.6, sodium 134, chloride 97, creatinine 2.20, EGFR 29. UA was obtained which showed 2+ urine protein, 2+ urine blood, otherwise negative. Urine sodium 97, urine creatinine 45.3. Cardiology was consulted and did a cardiac catheterization on 07/15/2024 which showed nonobstructive CAD with patent LCX stent and was continued on aspirin, statin, Brilinta. Nephrology was also consulted due to the orthostatic hypotension and recommended the use of abdominal binder, Mt hose, midodrine 10mg TID. He despite best efforts he remained orthostatic and we went ahead and consulted for Neurology today who recommends discontinuing the nortriptyline and adding pyridostigmine 30 mg TID. Patient reports dizziness today when going to the bathroom no other new complaints. Review of Systems Review of Systems: All systems reviewed & are unremarkable except as noted in HPI and below Constitutional: Constitutional: Reports as per HPI and Reports no additional constitutional complaints Eyes: Eyes: Reports as per HPI and Reports no additional eye complaints ENT: Reports system reviewed and no additional complaints, except as documented and Reports as per HPI Cardiovascular: Cardiovascular: Reports as per HPI and Reports no additional cardiovascular complaints Respiratory: Respiratory: Reports as per HPI and Reports no additional respiratory complaints Gastrointestinal: Gastrointestinal: Reports as per HPI and Reports no additional gastrointestinal complaints Genitourinary: Genitourinary: Reports no additional male genitourinary complaints and Reports as per HPI Musculoskeletal: Musculoskeletal: Reports no additional musculoskeletal complaints and Reports as per HPI Integumentary/Breasts: Skin/Breast: Reports system reviewed and no additional complaints, except as docu and Reports as per HPI Neurologic: Reports system reviewed and no additional complaints, except as documented and Reports as per HPI Psychiatric: Psychiatric: Reports no additional psychiatric complaints and Reports as per HPI Exam Narrative: General: In no acute distress, well nourished Head: atraumatic, no encephalopathy Eyes:PERRLA, sclera clear ENT: moist mucous membranes, nasal passages clear Neck: supple, no JVD, no adenopathy, trachea midline Cardiac: Normal S1 and S2. No murmur, gallops or friction rubs, peripheral pulses intact. Respiratory: Lungs clear to auscultation, no adventitious lung sounds, currently on room air Gastrointestinal: soft, non-distended, non-tender, normoactive bowel sounds. : voiding without difficulty. Extremities: moves all extremities well, no edema, good ROM, strength 5/5 Skin: clean, dry, intact. No wounds or lesions. Neuro: Alert and oriented x4, cranial nerves intact, no neuro deficits. Psych: normal mood, normal affect, interactive Objective Data Vital Signs Vital Signs: Vital Signs - 24 hr 07/17/24 09:10 07/17/24 09:10 07/17/24 09:11 Temperature Pulse Rate 92 103 H 116 H Respiratory Rate Blood Pressure 150/55 H 107/59 L 99/42 L Pulse Oximetry Oxygen Delivery 07/17/24 10:00 07/17/24 12:07 07/17/24 12:00 Temperature 98.7 F Pulse Rate 95 82 77 Respiratory Rate 14 Blood Pressure 110/51 L Pulse Oximetry 99 Oxygen Delivery 07/17/24 14:00 07/17/24 15:40 07/17/24 16:00 Temperature 98.1 F Pulse Rate 78 96 81 Respiratory Rate 14 Blood Pressure 137/49 L Pulse Oximetry 98 Oxygen Delivery 07/17/24 18:00 07/17/24 20:29 07/17/24 20:30 Temperature 98.0 F Pulse Rate 89 88 88 Respiratory Rate 16 Blood Pressure 169/54 H 169/54 H Pulse Oximetry 100 Oxygen Delivery 07/17/24 20:31 07/17/24 20:32 07/17/24 20:49 Temperature Pulse Rate 99 118 H 77 Respiratory Rate Blood Pressure 111/60 104/55 L Pulse Oximetry Oxygen Delivery 07/17/24 20:00 07/17/24 20:00 07/17/24 23:54 Temperature Pulse Rate 88 71 Respiratory Rate Blood Pressure Pulse Oximetry Oxygen Delivery Room Air 07/17/24 22:00 07/18/24 00:00 07/18/24 04:00 Temperature Pulse Rate 103 H 65 85 Respiratory Rate Blood Pressure Pulse Oximetry Oxygen Delivery 07/18/24 07:35 07/18/24 07:36 07/18/24 07:37 Temperature 97.7 F 97.7 F Pulse Rate 78 78 Respiratory Rate 18 18 Blood Pressure 126/43 L 126/43 L 107/46 L Pulse Oximetry 100 100 Oxygen Delivery 07/18/24 07:37 07/18/24 08:30 07/18/24 08:31 Temperature Pulse Rate 87 99 Respiratory Rate Blood Pressure 90/38 L 139/49 L 100/51 L Pulse Oximetry Oxygen Delivery 07/18/24 08:31 Temperature Pulse Rate 109 H Respiratory Rate Blood Pressure 83/43 L Pulse Oximetry Oxygen Delivery Intake/Output Intake/Output: Intake & Output 07/15/24 07/16/24 07/17/24 07/18/24 23:59 23:59 23:59 23:59 Intake Total 1480 1270 2370 740 Output Total 400 3450 1550 500 Balance 1080 -2180 820 240 Meds/Results Medications: Active Medications Generic Name Dose Route Start Last Admin Trade Name Freq PRN Reason Stop Dose Admin Allopurinol 300 mg 07/11/24 09:00 07/18/24 07:58 Allopurinol 300 Mg Tablet PO 300 mg DAILY CLARISSA Administration Alprazolam 0.5 mg 07/10/24 22:47 07/17/24 20:37 Alprazolam (*Crx) 0.5 Mg Tablet PO 0.5 mg TID PRN Administration Anxiety Aspirin 81 mg 07/11/24 09:00 07/18/24 07:58 Aspirin 81 Mg Enteric Tablet PO 81 mg DAILY CLARISSA Administration Docusate Sodium 100 mg 07/12/24 17:11 07/12/24 17:31 Docusate Sodium 100 Mg Capsule PO 100 mg Q12H PRN Administration Constipation Famotidine 20 mg 07/12/24 17:00 07/17/24 17:12 Famotidine 20 Mg Tablet PO 20 mg 1700 [facility] Administration Fludrocortisone Acetate 0.1 mg 07/19/24 08:00 Fludrocortisone Acetate 0.1 Mg Tablet PO DAILY@0800 [facility] Metoprolol Tartrate 25 mg 07/18/24 21:00 Metoprolol Tartrate 25 Mg Tablet PO Q24H [facility] Midodrine 10 mg 07/16/24 09:00 07/18/24 07:58 Midodrine Hcl 10 Mg Tablet PO 10 mg TID [facility] Administration Miscellaneous Information 0 each 07/10/24 00:01 07/11/24 00:26 Kerendia = Nonformulary. Can Pt Use From Home? XX 08/09/24 00:00 Not Given CLARIFY [facility] Nitroglycerin 0.4 mg 07/11/24 19:56 Nitroglycerin Sl 0.4 Mg Tablet SUBLINGUAL Q5MIN PRN Chest Pain Nortriptyline HCl 25 mg 07/10/24 21:00 07/17/24 20:37 Nortriptyline Hcl 25 Mg Capsule PO 25 mg QHS [facility] Administration Pantoprazole Sodium 40 mg 07/11/24 09:00 07/18/24 07:58 Pantoprazole 40 Mg Tablet PO 40 mg DAILY [facility] Administration Pentoxifylline 400 mg 07/11/24 09:00 07/18/24 07:58 Pentoxifylline 400 Mg Tabcr PO 400 mg TID [facility] Administration Rosuvastatin Calcium 40 mg 07/11/24 09:00 07/18/24 07:58 Rosuvastatin 20 Mg Tablet PO 40 mg DAILY [facility] Administration Ticagrelor 60 mg 07/10/24 21:00 07/18/24 07:58 Ticagrelor 60 Mg Tablet PO 60 mg Q12HR [facility] Administration Radiology Results: ITS Impressions Head CT 07/10/24 17:22 IMPRESSION: No acute intracranial process. Chest X-Ray 07/10/24 17:51 IMPRESSION: No acute cardiopulmonary process. Chest CTA 07/10/24 19:38 IMPRESSION: No CT evidence of acute pulmonary embolus. No acute process detected in the chest. ADDENDUM: 07/10/24 1950 1.7 cm right thyroid nodule, consider nonemergent outpatient thyroid ultrasound for further evaluation. Renal Ultrasound 07/16/24 08:17 IMPRESSION: 1. Normal kidney sizes. No hydronephrosis. Carotid Doppler Study 07/17/24 09:13 Impression: Mildly elevated velocities in the right internal carotid artery suggest moderate (50-69%) stenosis. Retrograde flow in the right vertebral artery. Consider subclavian steal syndrome. Note: The methodology used is an indirect measurement validated against a direct method (such as the NASCET criteria) that compares diameters at the stenosis to the distal ICA. Labs Labs: Laboratory Results - last 24 hr 07/17/24 07/17/24 07/17/24 11:45 16:37 20:34 WBC RBC Hgb Hct MCV MCH MCHC RDW Plt Count MPV Immature Gran % (Auto) Neut % (Auto) Lymph % (Auto) [place] % (Auto) Eos % (Auto) Baso % (Auto) Lymph # (Auto) [place] # (Auto) Eos # (Auto) Baso # (Auto) Abs Immat Gran (auto) Absolute Neuts (auto) Absolute Nucleated RBC Nucleated RBC % Sodium Potassium Chloride Carbon Dioxide Anion Gap BUN Creatinine Estim Creat Clear Calc Estimated GFR Glucose POC Capillary Glucose 196 H 149 H 183 H Calcium Total Bilirubin AST ALT Alkaline Phosphatase Total Protein Albumin 07/18/24 07/18/24 04:12 07:32 WBC 9.8 RBC 3.40 L Hgb 10.5 L Hct 31.2 L MCV 91.8 MCH 30.9 MCHC 33.7 RDW 13.2 Plt Count 233 MPV 10.4 Immature Gran % (Auto) 0.8 H Neut % (Auto) 64.2 Lymph % (Auto) 22.8 Shannon % (Auto) 8.7 H Eos % (Auto) 2.8 Baso % (Auto) 0.7 Lymph # (Auto) 2.22 Shannon # (Auto) 0.9 H Eos # (Auto) 0.3 Baso # (Auto) 0.1 Abs Immat Gran (auto) 0.08 H Absolute Neuts (auto) 6.3 Absolute Nucleated RBC 0.000 Nucleated RBC % 0.0 Sodium 135 L Potassium 3.8 Chloride 100 Carbon Dioxide 30 Anion Gap 5 BUN 34 H Creatinine 2.10 H Estim Creat Clear Calc 25 Estimated GFR 31 L Glucose 131 H POC Capillary Glucose 127 H Calcium 10.7 H Total Bilirubin 0.5 AST 32 ALT 24 Alkaline Phosphatase 109 Total Protein 7.0 Albumin 3.9 Quality VTE Prophylaxis VTE prophylaxis: mechanical ordered
--- NOTE | 2024-07-18 09:30 | PCNWS ---
Weekly nutritional screen. Patient is tolerating current heart healthy diet with adequate intake 75-100%. No weight loss reported. No nutritional needs at this time.
[2024-07-18 10:21] LABS: Uric Acid 4.1 mg/dL (3.5-8.5)
--- NOTE | 2024-07-18 11:40 | P.PNNP_ITS ---
Progress Note: A&P Assessment and Plan (1) JOEY (acute kidney injury): Code(s): N17.9 - Acute kidney failure, unspecified Status: Acute Assessment and Plan: * elevated above baseline on admission * evaluation to date noted: * renal ultrasound unremarkable * UA with 1+ protein * urine electrolytes and fractional excretion of urea were non pre renal * CK only slightly elevated, not enough to impact kidney function. * possibly related to fluctuating hemodynamics/orthostatic hypotension * now complicated by contrast exposure x 2 (CT chest PE protocol and cardiac cath) * follow trend of repeat labs and UOP (2) Stage 3b chronic kidney disease: Code(s): N18.32 - Chronic kidney disease, stage 3b Status: Chronic Assessment and Plan: * baseline creatinine runs ~ 1.3 - 1.8mg/dl in the last year * presumably due to HTN, diabetes, vascular disease and age-related change (3) Light-headedness: Code(s): R42 - Dizziness and giddiness Status: Acute Assessment and Plan: * consistent with orthostatic hypotension * agree with adequate hydration * amlodipine and chlorthalidone both stopped. * DEAN hose and abdominal binder are in use * on midodrine therapy . * Cardiology following * s/p cardiac catheterization - findings noted * TSH is normal; cortisol lowish * check stim test * follow repeat orthostatic BPs Will continue to follow. Subjective Date/time seen: 07/18/24 11:40 Interval history: Follow-up for acute kidney injury/acute renal failure on chronic kidney disease. Chart reviewed since last seen -- renal function/creatinine remains about the same and unfortunately, continues to have ongoing issues/problems with persistent orthostatic hypotension despite all interventions/therapy to date; no other acute complaints voiced. Exam Narrative: General: elderly but WD/WN male in NAD Heart: normal S1 and S2; no rub Lungs: clear to auscultation Abdomen: soft, nontender, nondistended, positive bowel sounds Extremities: no cyanosis or clubbing; no edema Skin: warm and dry Objective Data Vital Signs Vital Signs: Vital Signs Temp Pulse Resp BP Pulse Ox O2 Del Method 07/18/24 11:00 96 07/18/24 08:00 87 07/18/24 08:31 109 H 83/43 L 07/18/24 08:31 99 100/51 L 07/18/24 08:30 87 139/49 L 07/18/24 07:37 90/38 L 07/18/24 07:37 107/46 L 07/18/24 07:36 97.7 F 78 18 126/43 L 100 07/18/24 07:35 97.7 F 78 18 126/43 L 100 07/18/24 04:00 85 07/18/24 00:00 65 07/17/24 22:00 103 H 07/17/24 23:54 71 07/17/24 20:00 88 07/17/24 20:00 Room Air 07/17/24 20:49 77 07/17/24 20:32 118 H 104/55 L 07/17/24 20:31 99 111/60 07/17/24 20:30 88 169/54 H 07/17/24 20:29 98.0 F 88 16 169/54 H 100 07/17/24 18:00 89 Intake/Output Intake/Output: Intake & Output 07/15/24 07/16/24 07/17/24 07/18/24 23:59 23:59 23:59 23:59 Intake Total 1480 1270 2370 1530 Output Total 400 3450 1550 1900 Balance 5789 -3383 820 370 Meds/Results Medications: Active Medications Generic Name Dose Route Start Last Admin Trade Name Modeq PRN Reason Stop Dose Admin Allopurinol 300 mg 07/11/24 09:00 07/18/24 07:58 Allopurinol 300 Mg Tablet PO 300 mg DAILY CL[facility]IS[facility] Administration Alprazolam 0.5 mg 07/10/24 22:47 07/17/24 20:37 Alprazolam (*Crx) 0.5 Mg Tablet PO 0.5 mg TID PRN Administration Anxiety Aspirin 81 mg 07/11/24 09:00 07/18/24 07:58 Aspirin 81 Mg Enteric Tablet PO 81 mg DAILY CLARISSA Administration Dextrose 12.5 gm 07/18/24 09:48 Dextrose 50% 25 Gm/50 Ml Syringe IV PUSH PRN PRN Hypoglycemia Protocol Docusate Sodium 100 mg 07/12/24 17:11 07/12/24 17:31 Docusate Sodium 100 Mg Capsule PO 100 mg Q12H PRN Administration Constipation Famotidine 20 mg 07/12/24 17:00 07/18/24 16:36 Famotidine 20 Mg Tablet PO 20 mg 1700 CLARISSA Administration Glucagon 1 mg 07/18/24 09:48 Glucagon For Inj 1 Mg Vial IM PRN PRN Hypoglycemia Protocol Glucose 15 gm 07/18/24 09:48 Glucose Oral Gel 15 Gm Of Glucse In 37.5 Gm Tube PO PRN PRN Hypoglycemia Protocol Dextrose 1,000 mls @ 100 mls/hr 07/18/24 09:48 Dextrose 5% 1,000 Ml IVPB PRN PRN Hypoglycemia Protocol Insulin Aspart 3 - 6 units 07/18/24 12:00 07/18/24 16:40 Insulin Aspart (*Bkc) 100 Units/Ml SUB-Q Not Given [facility] Protocol Insulin Aspart 1 - 3 units 07/18/24 21:00 Insulin Aspart (*Bkc) 100 Units/Ml SUB-Q [facility] Protocol Metoprolol Tartrate 25 mg 07/18/24 21:00 Metoprolol Tartrate 25 Mg Tablet PO Q24H [facility] Midodrine 10 mg 07/16/24 09:00 07/18/24 16:36 Midodrine Hcl 10 Mg Tablet PO 10 mg TID [facility] Administration Miscellaneous Information 0 each 07/10/24 00:01 07/11/24 00:26 Kerendia = Nonformulary. Can Pt Use From Home? XX 08/09/24 00:00 Not Given CLARIFY [facility] Nitroglycerin 0.4 mg 07/11/24 19:56 Nitroglycerin Sl 0.4 Mg Tablet SUBLINGUAL Q5MIN PRN Chest Pain Pantoprazole Sodium 40 mg 07/11/24 09:00 07/18/24 07:58 Pantoprazole 40 Mg Tablet PO 40 mg DAILY [facility] Administration Pentoxifylline 400 mg 07/11/24 09:00 07/18/24 16:36 Pentoxifylline 400 Mg Tabcr PO 400 mg TID [facility] Administration Pyridostigmine [place] 30 mg 07/18/24 13:00 07/18/24 16:36 Pyridostigmine [place] 30 Mg Tablet PO 30 mg TID [facility] Administration Rosuvastatin Calcium 40 mg 07/11/24 09:00 07/18/24 07:58 Rosuvastatin 20 Mg Tablet PO 40 mg DAILY [facility] Administration Ticagrelor 60 mg 07/10/24 21:00 07/18/24 07:58 Ticagrelor 60 Mg Tablet PO 60 mg Q12HR [facility] Administration Radiology Results: ITS Impressions Head CT 07/10/24 17:22 IMPRESSION: No acute intracranial process. Chest X-Ray 07/10/24 17:51 IMPRESSION: No acute cardiopulmonary process. Chest CTA 07/10/24 19:38 IMPRESSION: No CT evidence of acute pulmonary embolus. No acute process detected in the chest. ADDENDUM: 07/10/24 1950 1.7 cm right thyroid nodule, consider nonemergent outpatient thyroid ultrasound for further evaluation. Renal Ultrasound 07/16/24 08:17 IMPRESSION: 1. Normal kidney sizes. No hydronephrosis. Carotid Doppler Study 07/17/24 09:13 Impression: Mildly elevated velocities in the right internal carotid artery suggest moderate (50-69%) stenosis. Retrograde flow in the right vertebral artery. Consider subclavian steal syndrome. Note: The methodology used is an indirect measurement validated against a direct method (such as the NASCET criteria) that compares diameters at the stenosis to the distal ICA. Labs Labs: Laboratory Tests 07/18/24 04:12 07/18/24 04:12 Calcium 10.7 H Total Bilirubin 0.5 AST 32 ALT 24 Alkaline Phosphatase 109 Total Protein 7.0 Albumin 3.9
[2024-07-18 11:54] LABS: Glucose Point of Care 136 mg/dl (65-105)
--- NOTE | 2024-07-18 12:06 | P.CONNEU_ITS ---
Assessment and Plan Assessment and plan (1) Orthostatic hypotension: Code(s): I95.1 - Orthostatic hypotension Status: Acute Assessment and Plan: This morning at 830 am , blood pressure in supine position was 139/49 and standing position blood pressure 83/43, heart rate supine was 87 standing was 109. The patient is currently already on midodrine 10 mg 3 times a day. Current medications were reviewed. I would suggest to hold off nortriptyline. We can add pyridostigmine 30 mg 3 times a day while we wait for the effect of nortriptyline to wear off. (2) Peripheral vascular disease, unspecified: Code(s): I73.9 - Peripheral vascular disease, unspecified Status: Chronic Assessment and Plan: history of stents done in the past (3) Chronic kidney disease, stage 3a: Code(s): N18.31 - Chronic kidney disease, stage 3a Status: Chronic Assessment and Plan: patient under care of general internal medicine physician (4) Lumbar spine pain: Code(s): M54.50 - Low back pain, unspecified Status: Acute Assessment and Plan: patient has been under care of pain specialist (5) History of right-sided carotid endarterectomy: Code(s): Z98.890 - Other specified postprocedural states Status: Acute Assessment and Plan: patient follows up with Dr. Foley at [facility] (6) Carotid stenosis, asymptomatic: Code(s): I65.29 - Occlusion and stenosis of unspecified carotid artery Status: Acute Assessment and Plan: significant stenosis of the intracranial portion of the left internal carotid artery and has been referred to Stroke Clinic at [facility] (7) Type 2 diabetes mellitus with cardiac complication: Code(s): E11.59 - Type 2 diabetes mellitus with other circulatory complications Status: Acute (8) Diabetic polyneuropathy: Code(s): E11.42 - Type 2 diabetes mellitus with diabetic polyneuropathy Status: Acute Plan as discussed above we can. Nortriptyline add pyridostigmine 30 mg 3 times a day while we watch for any side effects it may include diarrhea and bradycardia. This is particularly important since the patient is on metoprolol. We should avoid any alpha blockade or drugs that can cause any postural hypertension. Sa fety precautions are important until his blood pressure improves. Supine hypertension can be a problem and should be watched for. Consult date: 07/18/24 HPI: Derek Freeman is a 73 year old male with history of diabetes mellitus for over 10 years presented to the to the hospital within symptoms of lightheadedness and found to have postural hypertension but his blood pressure dropped significantly from supine to standing position by almost 60 is mm for systolic and 30 mm for diastolic. An intermediate drop was noted from supine to sitting position. Patient was seen by me recently in the office for cerebrovascular disease and was found to have a intracranial stenosis of the left internal carotid artery had been and has been referred to [facility] Stroke Clinic. There is a history of right and endarterectomy and is follows up with Dr. Foley at the vascular clinic at [facility]. He also has history of coronary disease and chronic kidney disease. Is currently on midodrine 10 mg 3 times a day despite that blood pressure dropped continues to issue. He also history of diabetic polyneuropathy and on my last office visit this was discussed. Review of Systems Review of Systems: No passing out spell. Symptoms of peripheral neuropathy are mild and are currently controlled. No other symptoms. [facility] Past Medical History Medical History 1st MTP arthritis Adenomatous colon polyp Anemia Arthritis BMI 25.0-25.9,adult BMI 25.0-25.9,adult BMI 26.0-26.9,adult BMI 26.0-26.9,adult BMI 27.0-27.9,adult BMI between 19-24,adult CAD (coronary artery disease) Carotid stenosis, asymptomatic h/o intracranial cerebral stenosis, evaluated at [facility] 05/2019, thought not to be symptomatic cont med tx. Carpal tunnel syndrome on both sides Cerebrovascular disease Chills Chronic pain Collagenous colitis Colonoscopy planned Depression Diabetic polyneuropathy Dysphagia Fever GERD (gastroesophageal reflux disease) Glaucoma Gout (~08/2019) Groin discomfort Heart disease High cholesterol History of blood clots History of prostate cancer HLD (hyperlipidemia) HTN (hypertension) Hyponatremia Left shoulder pain Light headedness Lumbar spine pain Microscopic colitis Overweight Personal history of DVT (deep vein thrombosis) Prostate cancer Right shoulder pain Shortness of breath SOB (shortness of breath) Spasmodic bladder Stenosis of infrarenal abdominal aorta due to arteriosclerosis Says his aorta is mildly enlarged Tendinitis of both rotator cuffs Trochanteric bursitis, left hip Trochanteric bursitis, right hip Type 2 diabetes mellitus without complications Wears glasses Surgical History Surgical History H/O cardiac catheterization H/O carotid endarterectomy (~10/2022) H/O cystoscopy H/O heart artery stent H/O rectal polypectomy History of angioplasty History of cataract surgery History of colonoscopy 2020 History of prostatectomy Had prostate cancer, status post prostatectomy and later radiation therapy. Has an implanted device to help with urinary incontinence. History of rotator cuff surgery Hx of endarterectomy S/P arthroscopic surgery of left knee Family History Family History Father , of lung cancer age 83 Hypertension Lung cancer Sibling Hypertension Mother Family history of malignant neoplasm of breast in first degree relative Breast cancer of breast cancer age 37 Sibling No problems noted. Other Diabetes mellitus Family history of cardiovascular disease Family history of elevated blood lipids Family history of malignant neoplasm Social History Social History Social History: The patient has 2 sons and is . He does not have a durable power health care attorney. Wishes to be a full code. 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 Smoking packs per day: 1 Smoking cigarettes per day: 20.0 Years smoked: 15 Smoking pack-years: 15.00 Smoking status: Former smoker Tobacco type: cigarettes Second hand tobacco smoke exposure: No Smoking end date: 08/31/82 Alcohol intake: current Drinks per week: 14 Substance use: former Substance use type: marijuana Other substance usage details: no beer in over a week; no marijuana in 9 months Do You Feel Safe in your Home?: Yes Lack of Transportation: No Lack of Food: Never True Current Housing: I Have Housing Concerned About Future Housing: No Difficulty Paying Gas/Electric Bills: No Difficulty Paying for Meds: No Currently Unemployed: No Education: Trade/Vocational Certificate Difficulty w/ Childcare or Family Care: No Living arrangements: alone Occupation/Education: retired Additional occupation/education comments: 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 Gender identity (if verbalized by the patient): Male Spiritual care concerns: No Agree to blood products: Yes Meds Home Medications and Allergies Home Medications Medication Instructions Recorded Confirmed Type nitroglycerin 0.3 mg sublingual 0.3 mg sublingual PRN PRN Chest 12/05/21 07/10/24 History tablet Pain ticagrelor 60 mg tablet (Brilinta) 60 mg PO BID 12/05/21 07/10/24 History aspirin 81 mg tablet,delayed 81 mg PO DAILY 12/06/21 07/10/24 History release (Adult Aspirin Regimen) chlorthalidone 25 mg tablet 25 mg PO DAILY 04/16/23 07/10/24 History blood sugar diagnostic (Accu-Chek #400 ea 07/01/23 07/10/24 Rx Aaliyah Plus test strips) rosuvastatin 40 mg tablet 40 mg PO DAILY 10/13/23 07/10/24 History alprazolam 0.5 mg tablet 0.5 mg PO TID PRN Anxiety #20 tabs 03/10/24 07/10/24 Rx nortriptyline 25 mg capsule 25 mg PO QHS #90 caps 03/15/24 07/10/24 Rx finerenone 10 mg tablet (Kerendia) 10 mg PO DAILY #30 tabs 05/10/24 07/10/24 Rx telmisartan 80 mg tablet 80 mg PO DAILY 06/08/24 07/10/24 History allopurinol 300 mg tablet 300 mg PO DAILY #90 tabs 06/15/24 07/10/24 Rx pantoprazole 40 mg tablet,delayed 40 mg PO DAILY #90 tabs 06/26/24 07/10/24 Rx release famotidine 20 mg tablet 20 mg PO DAILY 07/06/24 07/10/24 History pentoxifylline 400 mg 400 mg PO TID 07/06/24 07/10/24 History tablet,extended release calcium carbonate (Tums) 200 mg PO TID PRN heart burn 07/11/24 07/11/24 History amlodipine 2.5 mg tablet 2.5 mg PO DAILY 07/12/24 07/12/24 History carvedilol 12.5 mg tablet (Coreg) 12.5 mg PO BID 07/12/24 07/12/24 History Allergies Allergy/AdvReac Type Severity Reaction Status Date / Time dapagliflozin [From [facility]] AdvReac Severe Hallucinati Verified 07/10/24 20:42 ng metformin AdvReac Severe Diarrhea Verified 07/10/24 20:42 semaglutide [From Ozempic] AdvReac Intermediate Confusion Verified 07/10/24 20:42 Vital Signs Vital Signs - 24 hr 07/17/24 12:07 07/17/24 14:00 07/17/24 15:40 Temperature 98.7 F 98.1 F Pulse Rate 82 78 96 Respiratory Rate 14 14 Blood Pressure 110/51 L 137/49 L Pulse Oximetry 99 98 Oxygen Delivery 07/17/24 16:00 07/17/24 18:00 07/17/24 20:29 Temperature 98.0 F Pulse Rate 81 89 88 Respiratory Rate 16 Blood Pressure 169/54 H Pulse Oximetry 100 Oxygen Delivery 07/17/24 20:30 07/17/24 20:31 07/17/24 20:32 Temperature Pulse Rate 88 99 118 H Respiratory Rate Blood Pressure 169/54 H 111/60 104/55 L Pulse Oximetry Oxygen Delivery 07/17/24 20:49 07/17/24 20:00 07/17/24 20:00 Temperature Pulse Rate 77 88 Respiratory Rate Blood Pressure Pulse Oximetry Oxygen Delivery Room Air 07/17/24 23:54 07/17/24 22:00 07/18/24 00:00 Temperature Pulse Rate 71 103 H 65 Respiratory Rate Blood Pressure Pulse Oximetry Oxygen Delivery 07/18/24 04:00 07/18/24 07:35 07/18/24 07:36 Temperature 97.7 F 97.7 F Pulse Rate 85 78 78 Respiratory Rate 18 18 Blood Pressure 126/43 L 126/43 L Pulse Oximetry 100 100 Oxygen Delivery 07/18/24 07:37 07/18/24 07:37 07/18/24 08:30 Temperature Pulse Rate 87 Respiratory Rate Blood Pressure 107/46 L 90/38 L 139/49 L Pulse Oximetry Oxygen Delivery 07/18/24 08:31 07/18/24 08:31 07/18/24 08:00 Temperature Pulse Rate 99 109 H 87 Respiratory Rate Blood Pressure 100/51 L 83/43 L Pulse Oximetry Oxygen Delivery Exam Narrative: Fully conscious alert oriented to self time place and person. Speech is fluent and articulate. Memory appears intact. No aphasia or dysarthria. Examination head and neck reveals scar on the right side of the neck from previous carotid endarterectomy. No carotid bruit. Cranial nerves in do testing reveal was were equal react to light. Visual vogt by confrontation were normal. There is no facial asymmetry. Facial sensation normal. Tongue was midline. Other cranial nerves normal limits. Motor system normal power and tone in both upper and lower limbs however deep tendon reflexes were slightly brisk on the right upper and lower limb compared to the left side. Since he was intact to pin temperature and vibration. No involuntary movements are seen. Results Labs 07/18/24 04:12 07/18/24 04:12 Labs: Short CBC 07/18/24 Range/Units 04:12 WBC 9.8 (4.5-10.0) K/mm3 Hgb 10.5 L (14.0-18.0) g/dL Hct 31.2 L (42.0-52.0) % Plt Count 233 (150-375) k/mm3 BMP 07/18/24 04:12 Sodium 135 L Potassium 3.8 Chloride 100 Carbon Dioxide 30 BUN 34 H Creatinine 2.10 H Glucose 131 H Calcium 10.7 H Liver Function 07/18/24 Range/Units 04:12 Total Bilirubin 0.5 (0.2-1.3) mg/dL AST 32 (17-59) U/L ALT 24 (6-50) U/L Alkaline Phosphatase 109 (38-126) U/L Albumin 3.9 (3.5-5.1) g/dL
[2024-07-18] MEDS: pyRIDostigmine bromide 30 MG TABLET PO ×2 (12:26→16:36)
[2024-07-18 14:01] LABS: Free T4 Free Thyroxine 1.18 ng/mL (0.78-2.19)
[2024-07-18 15:59] LABS: Glucose Point of Care 210 mg/dl (65-105)
[2024-07-18] MEDS: FAMOTIDINE 20 MG TABLET PO (16:36)
[2024-07-18 17:24] LABS: Cortisol Random 6.06 ug/dL
[2024-07-18 18:22] LABS: Glucose Point of Care 206 mg/dl (65-105)
[2024-07-18 21:01] LABS: Glucose Point of Care 172 mg/dl (65-105)
[2024-07-18] MEDS: METOPROLOL TARTRATE 25 MG TABLET PO (21:29)
[2024-07-19] VITALS (11 sets, daily range): BP systolic 79–143; BP diastolic 44–56; PULSE 62–117; RESP 16–18; TEMP 36.4–36.8; O2SAT 96–100
[2024-07-19] MEDS: ALPRAZolam (*CRX) 0.5 MG TABLET PO ×2 (02:36→10:45)
[2024-07-19 04:03] LABS: Creat 24 Hr 1.23 g/24 h (0.50-2.15); Pro/Creat Ratio 767 mg/g creat (<100); Pro/Creat Ratio mg/mg 0.767 (<0.100); Protein,total, 24 Hr Ur 943 mg/24 h (<150)
[2024-07-19 05:08] LABS: Protein, Total 6.6 g/dL (6.1-8.1)
[2024-07-19 05:32] LABS: Basophils Absolute Auto 0.1 K/mm3 (0.0-0.1); Basophils Percent Auto 0.7 % (0.2-1.2); Eosinophils Absolute Auto 0.2 K/mm3 (0-0.3); Hematocrit 33.8 % (42.0-52.0); Hemoglobin 11.7 g/dL (14.0-18.0); Immature Granulocyte Absolute 0.05 K/mm3 (0.00-0.031); Immature Granulocyte Percent A 0.5 % (0-0.5); Lymphocytes Absolute Auto 1.88 K/mm3 (0.9-3.2); Lymphocytes Percent Auto 19.3 % (18.3-44.2); Mean Corpuscular HGB Conc 34.6 g/dl (32-36); Mean Corpuscular Hemoglobin 31.3 pg (26-34); Mean Corpuscular Volume 90.4 fl (80-100); Mean Platelet Volume 10.8 fl (7.4-10.4); Monocytes Absolute Auto 0.8 K/mm3 (0.1-0.6); Monocytes Percent Auto 8.4 % (2.6-8.5); Neutrophils Absolute Auto 6.7 K/mm3 (1.3-6.7); Neutrophils Percent Auto 69.1 % (45.5-73.1); Platelet Count Result 231 k/mm3 (150-375); Red Blood Count 3.74 M/mm3 (4.6-6.20); Red Cell Distribution Width 13.3 % (11.5-14.5); White Blood Count 9.7 K/mm3 (4.5-10.0)
[2024-07-19 06:02] LABS: Alanine Aminotransferase 25 U/L (6-50); Alkaline Phosphatase 106 U/L (38-126); Anion Gap 8 mmol/L (4-12); Aspartate Amino Transferase 31 U/L (17-59); Bilirubin,Total 0.5 mg/dL (0.2-1.3); Blood Urea Nitrogen 35 mg/dL (9-20); Calcium 11.1 mg/dL (8.4-10.2); Carbon Dioxide 28 mmol/L (22-30); Chloride 98 mmol/L (98-107); Estimated CRCL calculation 27 ml/min; Estimated Glomerular Filt Rate 33; Glucose 141 mg/dL (65-110); Potassium 3.6 mmol/L (3.4-5.0); Sodium 134 mmol/L (137-145)
--- NOTE | 2024-07-19 07:04 | PM.IMPN ---
Progress Note: A&P Assessment and Plan (1) Orthostatic hypotension: Code(s): I95.1 - Orthostatic hypotension Status: Acute Assessment and Plan: Cardiology and nephrology consulted and following Continue midodrine 10 mg t.i.d. Continue abdominal binder and Mt hose Continue checking orthostatic blood pressures Q shift Change positions slowly Neurology consulted for further assistance of orthostatic hypotension Cortisol pending Will check thyroid function Junior unfortunately would be contraindicated for him due to his CKD. Stop nortriptyline and start pyridostigmine 30 mg TID per Neurology recommendation Monitor for any bradycardias Patient is still symptomatic overnight with orthostatic blood pressures and today was still positive orthostatics but feeling less symptomatic. Continue nausea control (2) JOEY (acute kidney injury): Code(s): N17.9 - Acute kidney failure, unspecified Status: Acute Assessment and Plan: Creatinine 2.00 Baseline 1.3 S/P contrast exposure with CTA chest and cardiac catheterization. Nephrology following Avoid nephrotoxins Renally adjust medications as appropriate (3) Chronic kidney disease, stage 3a: Code(s): N18.31 - Chronic kidney disease, stage 3a Status: Chronic Assessment and Plan: See above (4) Exertional dyspnea: Code(s): R06.09 - Other forms of dyspnea Status: Resolved Assessment and Plan: Resolved Denies symptoms currently. Good O2 sats > 90 % on RA. CXR negative for acute. CTA chest negative for PE or acute process. Continue to monitor for now. (5) CAD (coronary artery disease): Qualifiers: Associated angina: without angina Coronary Disease-Associated Artery/Lesion type: [place] artery [place] vs. transplanted heart: [place] heart Qualified Code(s): I25.10 - Atherosclerotic heart disease of [place] coronary artery without angina pectoris Code(s): I25.10 - Atherosclerotic heart disease of [place] coronary artery without angina pectoris Status: Chronic Assessment and Plan: s/p C with no significant coronary occlusion observed. Continue ASA, Brilinta 60mg b.i.d. (per [facility]) and statin Cardiology following (6) GERD (gastroesophageal reflux disease): Code(s): K21.9 - Gastro-esophageal reflux disease without esophagitis Status: Chronic Assessment and Plan: Continue Pantoprazole 40 mg PO daily. (7) Type 2 diabetes mellitus without complications: Qualifiers: Diabetes mellitus mcc insulin use: without mcc use Qualified Code(s): E11.9 - Type 2 diabetes mellitus without complications Code(s): E11.9 - Type 2 diabetes mellitus without complications Status: Chronic Assessment and Plan: Blood sugars ranging 127-149 Hgb A1C 7.9 on 08/13/22 Will recheck Hgb A1C Accu checks AC/HS Moderate dose SSI ordered hypoglycemic protocol in place Diabetic diet ordered Time Spent With Patient Time with patient: 25 - 35 minutes Subjective Date/time seen: 07/19/24 07:04 Interval history: Interval history: This is a 73 year old male who presented to the hospital who presented to the hospital on 07/10/24 with complaints of dizziness. Work up in hospital included a head CT which was negative. Chest x-ray was negative. Chest CT was negative for pulmonary embolism. Renal ultrasound showed bilateral lobe a hill, diverticulum in the left side of the urinary bladder, normal size kidneys, no hydronephrosis. Carotid Doppler study showed mildly elevated velocities in the right internal carotid artery suggesting moderate stenosis, retrograde flow in the right vertebral artery. Initial labs showed a white blood cell count of 10.5, RBC 4.07, hemoglobin 12.6, sodium 134, chloride 97, creatinine 2.20, EGFR 29. UA was obtained which showed 2+ urine protein, 2+ urine blood, otherwise negative. Urine sodium 97, urine creatinine 45.3. Cardiology was consulted and did a cardiac catheterization on 07/15/2024 which showed nonobstructive CAD with patent LCX stent and was continued on aspirin, statin, Brilinta. Nephrology was also consulted due to the orthostatic hypotension and recommended the use of abdominal binder, Mt hose, midodrine 10mg TID. He despite best efforts he remained orthostatic and we went ahead and consulted for Neurology today who recommends discontinuing the nortriptyline and adding pyridostigmine 30 mg TID. Subjective: Patient reports that he was symptomatic overnight with nausea and vomiting whenever doing his orthostatic blood pressures done. He states when a did orthostatic blood pressures today that his his symptoms were last however he was still positive for orthostatic hypotension. Labs reviewed. Review of Systems Review of Systems: lightheadedness with standing position. All systems reviewed & are unremarkable except as noted in HPI and below Constitutional: Constitutional: Reports as per HPI and Reports no additional constitutional complaints Eyes: Eyes: Reports as per HPI and Reports no additional eye complaints ENT: Reports system reviewed and no additional complaints, except as documented and Reports as per HPI Cardiovascular: Cardiovascular: Reports as per HPI and Reports no additional cardiovascular complaints Respiratory: Respiratory: Reports as per HPI and Reports no additional respiratory complaints Gastrointestinal: Gastrointestinal: Reports as per HPI and Reports no additional gastrointestinal complaints Genitourinary: Genitourinary: Reports no additional male genitourinary complaints and Reports as per HPI Musculoskeletal: Musculoskeletal: Reports no additional musculoskeletal complaints and Reports as per HPI Integumentary/Breasts: Skin/Breast: Reports system reviewed and no additional complaints, except as docu and Reports as per HPI Neurologic: Reports system reviewed and no additional complaints, except as documented and Reports as per HPI Psychiatric: Psychiatric: Reports no additional psychiatric complaints and Reports as per HPI Exam Narrative: General: In no acute distress, well nourished Cardiac: Normal S1 and S2. No murmur, gallops or friction rubs, peripheral pulses intact. Respiratory: Lungs clear to auscultation, no adventitious lung sounds, currently on room air Gastrointestinal: soft, non-distended, non-tender, normoactive bowel sounds. : voiding without difficulty. Neuro: Alert and oriented x4 Objective Data Vital Signs Vital Signs: Vital Signs - 24 hr 07/18/24 07:35 07/18/24 07:36 07/18/24 07:37 Temperature 97.7 F 97.7 F Pulse Rate 78 78 Respiratory Rate 18 18 Blood Pressure 126/43 L 126/43 L 107/46 L Pulse Oximetry 100 100 Oxygen Delivery 07/18/24 07:37 07/18/24 08:30 07/18/24 08:31 Temperature Pulse Rate 87 99 Respiratory Rate Blood Pressure 90/38 L 139/49 L 100/51 L Pulse Oximetry Oxygen Delivery 07/18/24 08:31 07/18/24 08:00 07/18/24 12:00 Temperature Pulse Rate 109 H 87 96 Respiratory Rate Blood Pressure 83/43 L Pulse Oximetry Oxygen Delivery 07/18/24 15:49 07/18/24 16:00 07/18/24 18:19 Temperature 97.7 F 97.8 F Pulse Rate 112 H 110 H 85 Respiratory Rate 22 H 15 Blood Pressure 145/57 H 166/57 H Pulse Oximetry 100 94 Oxygen Delivery 07/18/24 20:00 07/18/24 21:16 07/18/24 21:17 Temperature 99.0 F 99.0 F 99.0 F Pulse Rate 69 102 H 104 H Respiratory Rate 20 18 18 Blood Pressure 110/92 H 139/59 L 156/61 H Pulse Oximetry 95 97 95 Oxygen Delivery 07/18/24 21:29 07/18/24 21:29 07/18/24 21:00 Temperature Pulse Rate 90 90 Respiratory Rate Blood Pressure Pulse Oximetry 95 Oxygen Delivery Room Air 07/19/24 00:04 07/19/24 04:00 Temperature Pulse Rate 62 70 Respiratory Rate Blood Pressure Pulse Oximetry Oxygen Delivery Intake/Output Intake/Output: Intake & Output 07/16/24 07/17/24 07/18/24 07/19/24 23:59 23:59 23:59 23:59 Intake Total 1270 2370 1530 480 Output Total 3450 1550 2500 350 Balance -2180 820 -970 130 Meds/Results Medications: Active Medications Generic Name Dose Route Start Last Admin Trade Name Freq PRN Reason Stop Dose Admin Allopurinol 300 mg 07/11/24 09:00 07/18/24 07:58 Allopurinol 300 Mg Tablet PO 300 mg DAILY CLARISSA Administration Alprazolam 0.5 mg 07/10/24 22:47 07/19/24 02:36 Alprazolam (*Crx) 0.5 Mg Tablet PO 0.5 mg TID PRN Administration Anxiety Aspirin 81 mg 07/11/24 09:00 07/18/24 07:58 Aspirin 81 Mg Enteric Tablet PO 81 mg DAILY CLARISSA Administration Dextrose 12.5 gm 07/18/24 09:48 Dextrose 50% 25 Gm/50 Ml Syringe IV PUSH PRN PRN Hypoglycemia Protocol Docusate Sodium 100 mg 07/12/24 17:11 07/12/24 17:31 Docusate Sodium 100 Mg Capsule PO 100 mg Q12H PRN Administration Constipation Famotidine 20 mg 07/12/24 17:00 07/18/24 16:36 Famotidine 20 Mg Tablet PO 20 mg 1700 CLARISSA Administration Glucagon 1 mg 07/18/24 09:48 Glucagon For Inj 1 Mg Vial IM PRN PRN Hypoglycemia Protocol Glucose 15 gm 07/18/24 09:48 Glucose Oral Gel 15 Gm Of Glucse In 37.5 Gm Tube PO PRN PRN Hypoglycemia Protocol Dextrose 1,000 mls @ 100 mls/hr 07/18/24 09:48 Dextrose 5% 1,000 Ml IVPB PRN PRN Hypoglycemia Protocol Insulin Aspart 3 - 6 units 07/18/24 12:00 07/18/24 16:40 Insulin Aspart (*Bkc) 100 Units/Ml SUB-Q Not Given TIDWM CLARISSA Protocol Insulin Aspart 1 - 3 units 07/18/24 21:00 07/18/24 21:29 Insulin Aspart (*Bkc) 100 Units/Ml SUB-Q Not Given HS [facility] Protocol Metoprolol Tartrate 25 mg 07/18/24 21:00 07/18/24 21:29 Metoprolol Tartrate 25 Mg Tablet PO 25 mg Q24H CLARISSA Administration Midodrine 10 mg 07/16/24 09:00 07/18/24 16:36 Midodrine Hcl 10 Mg Tablet PO 10 mg TID CLARISSA Administration Miscellaneous Information 0 each 07/10/24 00:01 07/11/24 00:26 Kerendia = Nonformulary. Can Pt Use From Home? XX 08/09/24 00:00 Not Given CLARIFY CLARISSA Nitroglycerin 0.4 mg 07/11/24 19:56 Nitroglycerin Sl 0.4 Mg Tablet SUBLINGUAL Q5MIN PRN Chest Pain Pantoprazole Sodium 40 mg 07/11/24 09:00 07/18/24 07:58 Pantoprazole 40 Mg Tablet PO 40 mg DAILY [facility] Administration Pentoxifylline 400 mg 07/11/24 09:00 07/18/24 16:36 Pentoxifylline 400 Mg Tabcr PO 400 mg TID [facility] Administration Pyridostigmine [place] 30 mg 07/18/24 13:00 07/18/24 16:36 Pyridostigmine [place] 30 Mg Tablet PO 30 mg TID [facility] Administration Rosuvastatin Calcium 40 mg 07/11/24 09:00 07/18/24 07:58 Rosuvastatin 20 Mg Tablet PO 40 mg DAILY [facility] Administration Ticagrelor 60 mg 07/10/24 21:00 07/18/24 22:22 Ticagrelor 60 Mg Tablet PO 60 mg Q12HR CLARISSA Administration Radiology Results: ITS Impressions Head CT 07/10/24 17:22 IMPRESSION: No acute intracranial process. Chest X-Ray 07/10/24 17:51 IMPRESSION: No acute cardiopulmonary process. Chest CTA 07/10/24 19:38 IMPRESSION: No CT evidence of acute pulmonary embolus. No acute process detected in the chest. ADDENDUM: 07/10/24 1950 1.7 cm right thyroid nodule, consider nonemergent outpatient thyroid ultrasound for further evaluation. Renal Ultrasound 07/16/24 08:17 IMPRESSION: 1. Normal kidney sizes. No hydronephrosis. Carotid Doppler Study 07/17/24 09:13 Impression: Mildly elevated velocities in the right internal carotid artery suggest moderate (50-69%) stenosis. Retrograde flow in the right vertebral artery. Consider subclavian steal syndrome. Note: The methodology used is an indirect measurement validated against a direct method (such as the NASCET criteria) that compares diameters at the stenosis to the distal ICA. Labs Labs: Laboratory Results - last 24 hr 07/16/24 07/17/24 07/17/24 04:37 04:47 15:45 WBC RBC Hgb Hct MCV MCH MCHC RDW Plt Count MPV Immature Gran % (Auto) Neut % (Auto) Lymph % (Auto) [place] % (Auto) Eos % (Auto) Baso % (Auto) Lymph # (Auto) [place] # (Auto) Eos # (Auto) Baso # (Auto) Abs Immat Gran (auto) Absolute Neuts (auto) Absolute Nucleated RBC Nucleated RBC % Sodium Potassium Chloride Carbon Dioxide Anion Gap BUN Creatinine Estim Creat Clear Calc Estimated GFR Glucose POC Capillary Glucose Uric Acid Calcium Total Bilirubin AST ALT Alkaline Phosphatase Total Protein 6.6 Albumin TSH Free T4 Random Cortisol 6.06 U Protein 24 Hr Presump 943 H 07/18/24 07/18/24 07/18/24 07:32 09:15 09:16 WBC RBC Hgb Hct MCV MCH MCHC RDW Plt Count MPV Immature Gran % (Auto) Neut % (Auto) Lymph % (Auto) [place] % (Auto) Eos % (Auto) Baso % (Auto) Lymph # (Auto) [place] # (Auto) Eos # (Auto) Baso # (Auto) Abs Immat Gran (auto) Absolute Neuts (auto) Absolute Nucleated RBC Nucleated RBC % Sodium Potassium Chloride Carbon Dioxide Anion Gap BUN Creatinine Estim Creat Clear Calc Estimated GFR Glucose POC Capillary Glucose 127 H Uric Acid 4.1 Calcium Total Bilirubin AST ALT Alkaline Phosphatase Total Protein Albumin TSH 2.650 Free T4 1.18 Random Cortisol U Protein 24 Hr Presump 07/18/24 07/18/24 07/18/24 11:26 15:57 18:17 WBC RBC Hgb Hct MCV MCH MCHC RDW Plt Count MPV Immature Gran % (Auto) Neut % (Auto) Lymph % (Auto) [place] % (Auto) Eos % (Auto) Baso % (Auto) Lymph # (Auto) [place] # (Auto) Eos # (Auto) Baso # (Auto) Abs Immat Gran (auto) Absolute Neuts (auto) Absolute Nucleated RBC Nucleated RBC % Sodium Potassium Chloride Carbon Dioxide Anion Gap BUN Creatinine Estim Creat Clear Calc Estimated GFR Glucose POC Capillary Glucose 136 H 210 H 206 H Uric Acid Calcium Total Bilirubin AST ALT Alkaline Phosphatase Total Protein Albumin TSH Free T4 Random Cortisol U Protein 24 Hr Presump 07/18/24 07/19/24 07/19/24 20:58 05:06 05:07 WBC 9.7 RBC 3.74 L Hgb 11.7 L Hct 33.8 L MCV 90.4 MCH 31.3 MCHC 34.6 RDW 13.3 Plt Count 231 MPV 10.8 H Immature Gran % (Auto) 0.5 Neut % (Auto) 69.1 Lymph % (Auto) 19.3 [place] % (Auto) 8.4 Eos % (Auto) 2.0 Baso % (Auto) 0.7 Lymph # (Auto) 1.88 [place] # (Auto) 0.8 H Eos # (Auto) 0.2 Baso # (Auto) 0.1 Abs Immat Gran (auto) 0.05 H Absolute Neuts (auto) 6.7 Absolute Nucleated RBC 0.000 Nucleated RBC % 0.0 Sodium 134 L Potassium 3.6 Chloride 98 Carbon Dioxide 28 Anion Gap 8 BUN 35 H Creatinine 2.00 H Estim Creat Clear Calc 27 Estimated GFR 33 L Glucose 141 H POC Capillary Glucose 172 H Uric Acid Calcium 11.1 H Total Bilirubin 0.5 AST 31 ALT 25 Alkaline Phosphatase 106 Total Protein 7.0 Albumin 4.0 TSH Free T4 Random Cortisol U Protein 24 Hr Presump Quality VTE Prophylaxis VTE prophylaxis: mechanical ordered
[2024-07-19 07:54] LABS: Hemoglobin A1C 7.3 % (<5.7)
[2024-07-19 08:04] LABS: Glucose Point of Care 129 mg/dl (65-105)
[2024-07-19] MEDS: ASPIRIN 81 MG ENTERIC TABLET PO (09:05)
[2024-07-19] MEDS: pyRIDostigmine bromide 30 MG TABLET PO ×3 (09:05→17:04)
[2024-07-19] MEDS: allopurinoL 300 MG TABLET PO (09:05)
[2024-07-19] MEDS: PANTOPRAZOLE 40 MG TABLET PO (09:06)
[2024-07-19] MEDS: MIDODRINE HCL 10 MG TABLET PO ×3 (09:06→17:04)
[2024-07-19] MEDS: PENTOXIFYLLINE 400 MG TABCR PO ×3 (09:06→17:03)
[2024-07-19] MEDS: ROSUVASTATIN 20 MG TABLET 40 MG PO (09:15)
[2024-07-19] MEDS: TICAGRELOR 60 MG TABLET PO ×2 (09:15→21:45)
--- NOTE | 2024-07-19 09:51 | P.PNNP_ITS ---
Progress Note: A&P Assessment and Plan (1) JOEY (acute kidney injury): Code(s): N17.9 - Acute kidney failure, unspecified Status: Acute Assessment and Plan: * elevated above baseline on admission * evaluation to date noted: * renal ultrasound unremarkable * UA with 1+ protein * urine electrolytes and fractional excretion of urea were non pre renal * CK only slightly elevated, not enough to impact kidney function. * possibly related to fluctuating hemodynamics/orthostatic hypotension * complicated by contrast exposure x 2 (CT chest PE protocol and cardiac cath) during this hospital stay * follow trend of repeat labs and UOP (2) Stage 3b chronic kidney disease: Code(s): N18.32 - Chronic kidney disease, stage 3b Status: Chronic Assessment and Plan: * baseline creatinine runs ~ 1.3 - 1.8mg/dl in the last year * presumably due to HTN, diabetes, vascular disease and age-related change (3) Light-headedness: Code(s): R42 - Dizziness and giddiness Status: Acute Assessment and Plan: * consistent with orthostatic hypotension * agree with adequate hydration * amlodipine and chlorthalidone both stopped * DEAN hose and abdominal binder are in use * on midodrine therapy * Neurology following as well with medication recommendations noted * Cardiology following initially * s/p cardiac catheterization - findings noted * TSH is normal; cortisol lowish * stim test today * follow repeat orthostatic BPs Will continue to follow. Subjective Date/time seen: 07/19/24 09:51 Interval history: Follow-up for acute kidney injury/acute renal failure on chronic kidney disease and orthostatic hypotension. Still with ongoing issues with symptomatic orthostatic hypotension (associated with nausea and vomiting) despite all interventions/therapy to date including recent Neurology recommendations; no acute distress voiced at the time of my visit. Exam Narrative: General: elderly but WD/WN male in NAD Heart: normal S1 and S2; no rub Lungs: clear to auscultation Abdomen: soft, nontender, nondistended, positive bowel sounds Extremities: no cyanosis or clubbing; no edema Skin: warm and intact Objective Data Vital Signs Vital Signs: Vital Signs Temp Pulse Resp BP Pulse Ox O2 Del Method 07/19/24 08:00 86 07/19/24 09:15 Room Air 07/19/24 08:27 117 H 79/44 L 07/19/24 08:26 89/48 L 07/19/24 08:00 88 124/56 L 07/19/24 08:00 98.3 F 88 16 124/56 L 98 07/19/24 04:00 70 07/19/24 00:04 62 07/18/24 21:00 90 07/18/24 21:29 95 Room Air 07/18/24 21:29 90 07/18/24 21:17 99.0 F 104 H 18 156/61 H 95 07/18/24 21:16 99.0 F 102 H 18 139/59 L 97 07/18/24 20:00 99.0 F 69 20 110/92 H 95 07/18/24 18:19 97.8 F 85 15 166/57 H 94 07/18/24 16:00 110 H 07/18/24 15:49 97.7 F 112 H 22 H 145/57 H 100 07/18/24 12:00 96 Intake/Output Intake/Output: Intake & Output 07/16/24 07/17/24 07/18/24 07/19/24 23:59 23:59 23:59 23:59 Intake Total 1270 2370 1530 720 Output Total 3450 1550 2500 350 Balance -2180 820 -970 370 Meds/Results Medications: Active Medications Generic Name Dose Route Start Last Admin Trade Name Freq PRN Reason Stop Dose Admin Allopurinol 300 mg 07/11/24 09:00 07/19/24 09:05 Allopurinol 300 Mg Tablet PO 300 mg DAILY CLARISSA Administration Alprazolam 0.5 mg 07/10/24 22:47 07/19/24 10:45 Alprazolam (*Crx) 0.5 Mg Tablet PO 0.5 mg TID PRN Administration Anxiety Aspirin 81 mg 07/11/24 09:00 07/19/24 09:05 Aspirin 81 Mg Enteric Tablet PO 81 mg DAILY CLARISSA Administration Cosyntropin 0.25 mg 07/19/24 11:53 Cosyntropin 0.25 Mg/Ml Vial IV PUSH 07/19/24 11:54 ONCE STA Dextrose 12.5 gm 07/18/24 09:48 Dextrose 50% 25 Gm/50 Ml Syringe IV PUSH PRN PRN Hypoglycemia Protocol Docusate Sodium 100 mg 07/12/24 17:11 07/12/24 17:31 Docusate Sodium 100 Mg Capsule PO 100 mg Q12H PRN Administration Constipation Famotidine 20 mg 07/12/24 17:00 07/18/24 16:36 Famotidine 20 Mg Tablet PO 20 mg 1700 CLARISSA Administration Glucagon 1 mg 07/18/24 09:48 Glucagon For Inj 1 Mg Vial IM PRN PRN Hypoglycemia Protocol Glucose 15 gm 07/18/24 09:48 Glucose Oral Gel 15 Gm Of Glucse In 37.5 Gm Tube PO PRN PRN Hypoglycemia Protocol Dextrose 1,000 mls @ 100 mls/hr 07/18/24 09:48 Dextrose 5% 1,000 Ml IVPB PRN PRN Hypoglycemia Protocol Insulin Aspart 3 - 6 units 07/18/24 12:00 07/19/24 09:06 Insulin Aspart (*Bkc) 100 Units/Ml SUB-Q Not Given TIDWM [facility] Protocol Insulin Aspart 1 - 3 units 07/18/24 21:00 07/18/24 21:29 Insulin Aspart (*Bkc) 100 Units/Ml SUB-Q Not Given HS [facility] Protocol Metoprolol Tartrate 25 mg 07/18/24 21:00 07/18/24 21:29 Metoprolol Tartrate 25 Mg Tablet PO 25 mg Q24H CLARISSA Administration Midodrine 10 mg 07/16/24 09:00 07/19/24 09:06 Midodrine Hcl 10 Mg Tablet PO 10 mg TID CLARISSA Administration Miscellaneous Information 0 each 07/10/24 00:01 07/11/24 00:26 Kerendia = Nonformulary. Can Pt Use From Home? XX 08/09/24 00:00 Not Given CLARIFY CLARISSA Nitroglycerin 0.4 mg 07/11/24 19:56 Nitroglycerin Sl 0.4 Mg Tablet SUBLINGUAL Q5MIN PRN Chest Pain Pantoprazole Sodium 40 mg 07/11/24 09:00 07/19/24 09:06 Pantoprazole 40 Mg Tablet PO 40 mg DAILY CLARISSA Administration Pentoxifylline 400 mg 07/11/24 09:00 07/19/24 09:06 Pentoxifylline 400 Mg Tabcr PO 400 mg TID CLARISSA Administration Pyridostigmine [place] 30 mg 07/18/24 13:00 07/19/24 09:05 Pyridostigmine [place] 30 Mg Tablet PO 30 mg TID CLARISSA Administration Rosuvastatin Calcium 40 mg 07/11/24 09:00 07/19/24 09:15 Rosuvastatin 20 Mg Tablet PO 40 mg DAILY CLARISSA Administration Ticagrelor 60 mg 07/10/24 21:00 07/19/24 09:15 Ticagrelor 60 Mg Tablet PO 60 mg Q12HR CLARISSA Administration Radiology Results: ITS Impressions Head CT 07/10/24 17:22 IMPRESSION: No acute intracranial process. Chest X-Ray 07/10/24 17:51 IMPRESSION: No acute cardiopulmonary process. Chest CTA 07/10/24 19:38 IMPRESSION: No CT evidence of acute pulmonary embolus. No acute process detected in the chest. ADDENDUM: 07/10/24 1950 1.7 cm right thyroid nodule, consider nonemergent outpatient thyroid ultrasound for further evaluation. Renal Ultrasound 07/16/24 08:17 IMPRESSION: 1. Normal kidney sizes. No hydronephrosis. Carotid Doppler Study 07/17/24 09:13 Impression: Mildly elevated velocities in the right internal carotid artery suggest moderate (50-69%) stenosis. Retrograde flow in the right vertebral artery. Consider subclavian steal syn drome. Note: The methodology used is an indirect measurement validated against a direct method (such as the NASCET criteria) that compares diameters at the stenosis to the distal ICA. Labs Labs: Laboratory Tests 07/19/24 05:06 07/19/24 05:07 Calcium 11.1 H Total Bilirubin 0.5 AST 31 ALT 25 Alkaline Phosphatase 106 Total Protein 7.0 Albumin 4.0
--- NOTE | 2024-07-19 11:11 | PC.NURSE ---
On 07/19/24, the student, [Pippa Bell], provided care and completed [facility] documentation on this patient. I have reviewed the student's documentation and agree with the findings.
[2024-07-19 12:01] LABS: Glucose Point of Care 176 mg/dl (65-105)
[2024-07-19] MEDS: COSYNTROPIN 0.25 MG/ML VIAL IV PUSH (12:10)
[2024-07-19 13:02] LABS: Cortisol Baseline 9.41 ug/dL
[2024-07-19 15:18] LABS: Albumin 3.4 g/dL (3.8-4.8); Alpha 1 Globulin 0.4 g/dL (0.2-0.3); Beta 1 Globulin 0.5 g/dL (0.4-0.6); Gamma Globulin 0.9 g/dL (0.8-1.7)
[2024-07-19 16:40] LABS: Glucose Point of Care 178 mg/dl (65-105)
[2024-07-19] MEDS: FAMOTIDINE 20 MG TABLET PO (17:04)
[2024-07-19 20:37] LABS: Glucose Point of Care 227 mg/dl (65-105)
[2024-07-19] MEDS: INSULIN ASPART (*BKC) 100 UNITS/ML SUB-Q (21:44)
[2024-07-19] MEDS: METOPROLOL TARTRATE 25 MG TABLET PO (21:45)
[2024-07-20] VITALS (16 sets, daily range): BP systolic 97–174; BP diastolic 42–99; PULSE 60–138; RESP 14–22; TEMP 36.3–36.7; O2SAT 95–100
[2024-07-20 04:38] LABS: T3 Free 3.1 pg/mL (2.3-4.2)
[2024-07-20 08:04] LABS: Glucose Point of Care 147 mg/dl (65-105)
[2024-07-20] MEDS: PENTOXIFYLLINE 400 MG TABCR PO ×3 (08:48→16:52)
[2024-07-20] MEDS: ASPIRIN 81 MG ENTERIC TABLET PO (08:49)
[2024-07-20] MEDS: pyRIDostigmine bromide 30 MG TABLET PO ×3 (08:49→16:52)
[2024-07-20] MEDS: MIDODRINE HCL 10 MG TABLET PO ×3 (08:49→16:52)
[2024-07-20] MEDS: allopurinoL 300 MG TABLET PO (08:50)
[2024-07-20] MEDS: TICAGRELOR 60 MG TABLET PO ×2 (08:50→20:35)
[2024-07-20] MEDS: PANTOPRAZOLE 40 MG TABLET PO (08:50)
[2024-07-20] MEDS: ROSUVASTATIN 20 MG TABLET 40 MG PO (08:50)
[2024-07-20] MEDS: ALPRAZolam (*CRX) 0.5 MG TABLET PO ×2 (10:21→20:35)
--- NOTE | 2024-07-20 11:17 | P.PNIM_ITS ---
Progress Note: A&P Assessment and Plan (1) Orthostatic hypotension: Code(s): I95.1 - Orthostatic hypotension Status: Acute Assessment and Plan: * Cardiology and nephrology consulted and following * Continue midodrine 10 mg t.i.d. * Continue abdominal binder and Mt hose * Continue checking orthostatic blood pressures Q shift * Change positions slowly * Neurology consulted for further assistance of orthostatic hypotension * Cortisol pending * Will check thyroid function- WNL * Florinef unfortunately would be contraindicated for him due to his CKD. * Stop nortriptyline and start pyridostigmine 30 mg TID per Neurology recommendation * Monitor for any bradycardias * Patient is still symptomatic overnight with orthostatic blood pressures and today was still positive orthostatics but feeling less symptomatic. 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 * Nephrology following * Avoid nephrotoxins * Renally adjust medications as appropriate (3) Chronic kidney disease, stage 3a: Code(s): N18.31 - Chronic kidney disease, stage 3a Status: Chronic Assessment and Plan: See above (4) Exertional dyspnea: Code(s): R06.09 - Other forms of dyspnea Status: Resolved Assessment and Plan: * Resolved * Denies symptoms currently. * Good O2 sats > 90 % on RA. * CXR negative for acute. * CTA chest negative for PE or acute process. * Continue to monitor for now. (5) CAD (coronary artery disease): Qualifiers: Associated angina: without angina Coronary Disease-Associated Artery/Lesion type: [place] artery [place] vs. transplanted heart: [place] heart Qualified Code(s): I25.10 - Atherosclerotic heart disease of [place] coronary artery without angina pectoris Code(s): I25.10 - Atherosclerotic heart disease of [place] coronary artery without angina pectoris Status: Chronic Assessment and Plan: * s/p LHC with no significant coronary occlusion observed. * Continue ASA, Brilinta 60mg b.i.d. (per [facility]) and statin * Cardiology following (6) GERD (gastroesophageal reflux disease): Code(s): K21.9 - Gastro-esophageal reflux disease without esophagitis Status: Chronic Assessment and Plan: * Continue Pantoprazole 40 mg PO daily. (7) Type 2 diabetes mellitus without complications: Qualifiers: Diabetes mellitus halfway insulin use: without manager terminal use Martin lified Code(s): E11.9 - Type 2 diabetes mellitus without complications Code(s): E11.9 - Type 2 diabetes mellitus without complications Status: Chronic Assessment and Plan: * Blood sugars ranging 127-149 * Hgb A1C 7.9 on 08/13/22 * Will recheck Hgb A1C * Accu checks AC/HS * Moderate dose SSI ordered * hypoglycemic protocol in place * Diabetic diet ordered Time Spent With Patient Time with patient: Greater than 35 minutes Subjective Date/time seen: 07/20/24 11:17 Interval history: 07/20- assuming care. card, nephrology, neurology following. pt is doing well but still experiencing symptoms. Review of Systems Review of Systems: lightheadedness with standing position. All systems reviewed & are unremarkable except as noted in HPI and below Constitutional: Constitutional: Reports as per HPI and Reports no additional constitutional complaints Eyes: Eyes: Reports as per HPI and Reports no additional eye complaints ENT: Reports system reviewed and no additional complaints, except as documented and Reports as per HPI Cardiovascular: Cardiovascular: Reports as per HPI and Reports no additional cardiovascular complaints Respiratory: Respiratory: Reports as per HPI and Reports no additional respiratory complaints Gastrointestinal: Gastrointestinal: Reports as per HPI and Reports no additional gastrointestinal complaints Genitourinary: Genitourinary: Reports no additional male genitourinary complaints and Reports as per HPI Musculoskeletal: Musculoskeletal: Reports no additional musculoskeletal complaints and Reports as per HPI Integumentary/Breasts: Skin/Breast: Reports system reviewed and no additional complaints, except as docu and Reports as per HPI Neurologic: Reports system reviewed and no additional complaints, except as documented and Reports as per HPI Psychiatric: Psychiatric: Reports no additional psychiatric complaints and Reports as per HPI Exam Narrative: General: In no acute distress, well nourished Cardiac: Normal S1 and S2. No murmur, gallops or friction rubs, peripheral pulses intact. Respiratory: Lungs clear to auscultation, no adventitious lung sounds, currently on room air Gastrointestinal: soft, non-distended, non-tender, normoactive bowel sounds. : voiding without difficulty. Neuro: Alert and oriented x4 Const: General: cooperative, comfortable, no acute distress, well developed, alert, awake, ill appearing chronically and average body habitus Nutritional Appearance: average body habitus Orientation/consciousness: patient oriented x3 HENMT: Head: normal to inspection, normocephalic and atraumatic Ears: hearing grossly normal bilaterally Face/Nose/Sinus: normal facial exam Face and sinus: normal facial exam Eyes: General: appearance normal, both eyes and all related structures Pupils: Equal, round and reactive pupils present EOM: EOMs intact bilaterally Neck: Neck: full ROM, no lymphadenopathy and no JVD Thyroid: thyroid normal Lymphatic: no lymphadenopathy noted Resp: Effort & Inspection: normal respiratory effort and able to speak in complete sentences Auscultation: clear to auscultation bilaterally Cardio: Jugular venous distension: no JVD Rate: regular rate and tachycardic Rhythm: regular rhythm Heart sounds: S1 normal heart sound present and S2 normal heart sound present GI: Inspection: obesity Auscultation: normal bowel sounds : General: Yes deferred Skin: General skin exam: no rashes or lesions noted Rashes: no rashes Wounds: no wounds Neuro: General: patient oriented x3 and CN's II-XI intact bilaterally Cranial nerves: Yes CN's II-XII intact bilaterally and Yes Equal, round and reactive pupils present Cognition (Neuro): normal cognition Speech: normal speech Gait exam (Neuro): Normal gait present Motor exam (neuro): 5/5 motor strength present throughout Extrem: General: normal to inspection, full ROM, no joint enlargement and no pedal edema Psych: Mental Status: mental status grossly normal Affect: normal affect Objective Data Vital Signs Vital Signs: Vital Signs - 24 hr 07/19/24 12:00 07/19/24 15:47 07/19/24 16:00 Temperature 97.8 F Pulse Rate 92 92 92 Respiratory Rate 18 Blood Pressure 122/48 L Pulse Oximetry 100 Oxygen Delivery 07/19/24 20:00 07/19/24 20:02 07/19/24 20:02 Temperature 97.6 F 98.3 F 98.0 F Pulse Rate 81 99 106 H Respiratory Rate 18 18 18 Blood Pressure 143/49 H 94/53 L 104/47 L Pulse Oximetry 96 99 97 Oxygen Delivery 07/19/24 21:45 07/20/24 00:00 07/19/24 20:00 Temperature 98.1 F Pulse Rate 75 66 Respiratory Rate 18 Blood Pressure 128/42 L Pulse Oximetry 97 Oxygen Delivery Room Air 07/19/24 20:00 07/20/24 00:00 07/20/24 04:00 Temperature Pulse Rate 87 60 73 Respiratory Rate Blood Pressure Pulse Oximetry Oxygen Delivery 07/20/24 06:27 07/20/24 08:50 07/20/24 08:00 Temperature 97.4 F L Pulse Rate 70 86 Respiratory Rate 18 Blood Pressure 136/58 L Pulse Oximetry 98 Oxygen Delivery Room Air 07/20/24 10:30 07/20/24 10:35 07/20/24 10:40 Temperature Pulse Rate 102 H 112 H 122 H Respiratory Rate 14 16 22 H Blood Pressure 174/57 H 113/42 L 97/53 L Pulse Oximetry 99 99 100 Oxygen Delivery Intake/Output Intake/Output: Intake & Output 07/17/24 07/18/24 07/19/24 07/20/24 23:59 23:59 23:59 23:59 Intake Total 2370 1530 1510 240 Output Total 1550 2500 725 200 Balance 820 -970 785 40 Meds/Results Medications: Active Medications Generic Name Dose Route Start Last Admin Trade Name Freq PRN Reason Stop Dose Admin Allopurinol 300 mg 07/11/24 09:00 07/20/24 08:50 Allopurinol 300 Mg Tablet PO 300 mg DAILY CLARISSA Administration Alprazolam 0.5 mg 07/10/24 22:47 07/20/24 10:21 Alprazolam (*Crx) 0.5 Mg Tablet PO 0.5 mg TID PRN Administration Anxiety Aspirin 81 mg 07/11/24 09:00 07/20/24 08:49 Aspirin 81 Mg Enteric Tablet PO 81 mg DAILY CLARISSA Administration Dextrose 12.5 gm 07/18/24 09:48 Dextrose 50% 25 Gm/50 Ml Syringe IV PUSH PRN PRN Hypoglycemia Protocol Docusate Sodium 100 mg 07/12/24 17:11 07/12/24 17:31 Docusate Sodium 100 Mg Capsule PO 100 mg Q12H PRN Administration Constipation Famotidine 20 mg 07/12/24 17:00 07/19/24 17:04 Famotidine 20 Mg Tablet PO 20 mg 1700 CLARISSA Administration Glucagon 1 mg 07/18/24 09:48 Glucagon For Inj 1 Mg Vial IM PRN PRN Hypoglycemia Protocol Glucose 15 gm 07/18/24 09:48 Glucose Oral Gel 15 Gm Of Glucse In 37.5 Gm Tube PO PRN PRN Hypoglycemia Protocol Dextrose 1,000 mls @ 100 mls/hr 07/18/24 09:48 Dextrose 5% 1,000 Ml IVPB PRN PRN Hypoglycemia Protocol Insulin Aspart 3 - 6 units 07/18/24 12:00 07/20/24 08:41 Insulin Aspart (*Bkc) 100 Units/Ml SUB-Q Not Given TIDWM CLARISSA Protocol Insulin Aspart 1 - 3 units 07/18/24 21:00 07/19/24 21:44 Insulin Aspart (*Bkc) 100 Units/Ml SUB-Q 1 units HS CLARISSA Administration Protocol Metoprolol Tartrate 25 mg 07/18/24 21:00 07/19/24 21:45 Metoprolol Tartrate 25 Mg Tablet PO 25 mg Q24H CLARISSA Administration Midodrine 10 mg 07/16/24 09:00 07/20/24 08:49 Midodrine Hcl 10 Mg Tablet PO 10 mg TID CLARISSA Administration Miscellaneous Information 0 each 07/10/24 00:01 07/11/24 00:26 Kerendia = Nonformulary. Can Pt Use From Home? XX 08/09/24 00:00 Not Given CLARIFY CLARISSA Miscellaneous Information 0 each 07/19/24 00:01 Alprazolam Renew Order If Still Needs Or Will Auto D/C XX 08/18/24 00:00 CLARIFY CLARISSA Nitroglycerin 0.4 mg 07/11/24 19:56 Nitroglycerin Sl 0.4 Mg Tablet SUBLINGUAL Q5MIN PRN Chest Pain Pantoprazole Sodium 40 mg 07/11/24 09:00 07/20/24 08:50 Pantoprazole 40 Mg Tablet PO 40 mg DAILY CL[facility]ISSA Administration Pentoxifylline 400 mg 07/11/24 09:00 07/20/24 08:48 Pentoxifylline 400 Mg Tabcr PO 400 mg TID CLARISSA Administration Pyridostigmine Lewis 30 mg 07/18/24 13:00 07/20/24 08:49 Pyridostigmine Lewis 30 Mg Tablet PO 30 mg TID CLARISSA Administration Rosuvastatin Calcium 40 mg 07/11/24 09:00 07/20/24 08:50 Rosuvastatin 20 Mg Tablet PO 40 mg DAILY CLARISSA Administration Ticagrelor 60 mg 07/10/24 21:00 07/20/24 08:50 Ticagrelor 60 Mg Tablet PO 60 mg Q12HR CLARISSA Administration Radiology Results: ITS Impressions Head CT 07/10/24 17:22 IMPRESSION: No acute intracranial process. Chest X-Ray 07/10/24 17:51 IMPRESSION: No acute cardiopulmonary process. Chest CTA 07/10/24 19:38 IMPRESSION: No CT evidence of acute pulmonary embolus. No acute process detected in the chest. ADDENDUM: 07/10/24 1950 1.7 cm right thyroid nodule, consider nonemergent outpatient thyroid ultrasound for further evaluation. Renal Ultrasound 07/16/24 08:17 IMPRESSION: 1. Normal kidney sizes. No hydronephrosis. Carotid Doppler Study 07/17/24 09:13 Impression: Mildly elevated velocities in the right internal carotid artery suggest moderate (50-69%) stenosis. Retrograde flow in the right vertebral artery. Consider subclavian steal syndrome. Note: The methodology used is an indirect measurement validated against a direct method (such as the NASCET criteria) that compares diameters at the stenosis to the distal ICA. Labs Labs: Laboratory Results - last 24 hr 07/17/24 07/17/24 07/18/24 04:47 15:45 09:15 POC Capillary Glucose Albumin 3.4 L Qmsxc-9-Dnpydhzmx 0.4 H Jdavq-2-Iuahhjmlk 1.0 H Bfft-5-Fibxykmk 0.5 Pvlm-7-Essyceit 0.5 Gamma Globulins 0.9 PEP Interpretation See note Free T3 pg/mL 3.1 Cortisol Baseline Cortisol Resp 30 Min Cortisol Resp 60 Min Ur ROLY Interpret 24 hr 07/19/24 07/19/24 07/19/24 11:58 12:12 12:44 POC Capillary Glucose 176 H Albumin Tlwqh-4-Olajoddye Bnjze-7-Njfshbneo Mqja-7-Cteuaiwa Elel-6-Gthzklzw Gamma Globulins PEP Interpretation Free T3 pg/mL Cortisol Baseline 9.41 Cortisol Resp 30 Min 18.90 Cortisol Resp 60 Min Ur ROLY Interpret 24 hr 07/19/24 07/19/24 07/19/24 13:14 16:37 20:25 POC Capillary Glucose 178 H 227 H Albumin Avgpv-1-Xwzlhvgih Dxjsn-8-Rrcypdhkf Wnsg-4-Aifrhfxg Ptks-4-Ymvidxph Gamma Globulins PEP Interpretation Free T3 pg/mL Cortisol Baseline Cortisol Resp 30 Min Cortisol Resp 60 Min 24.80 Ur ROLY Interpret 24 hr 07/20/24 07:51 POC Capillary Glucose 147 H Albumin Ymbbm-9-Qybmhodge Kewxe-0-Rpjnvawdl Jrzb-3-Cyfwscro Sooj-1-Tjocxzqs Gamma Globulins PEP Interpretation Free T3 pg/mL Cortisol Baseline Cortisol Resp 30 Min Cortisol Resp 60 Min Ur ROLY Interpret 24 hr Quality VTE Prophylaxis VTE prophylaxis: mechanical ordered
[2024-07-20 12:53] LABS: Glucose Point of Care 148 mg/dl (65-105)
--- NOTE | 2024-07-20 13:18 | P.PNNP_ITS ---
Progress Note: A&P Assessment and Plan (1) JOEY (acute kidney injury): Code(s): N17.9 - Acute kidney failure, unspecified Status: Acute Assessment and Plan: * elevated above baseline on admission * evaluation to date noted: * renal ultrasound unremarkable * UA with 1+ protein * urine electrolytes and fractional excretion of urea were non pre renal * CK only slightly elevated, not enough to impact kidney function. * possibly related to fluctuating hemodynamics/orthostatic hypotension * complicated by contrast exposure x 2 (CT chest PE protocol and cardiac cath) during this hospital stay * follow trend of repeat labs and UOP (2) Stage 3b chronic kidney disease: Code(s): N18.32 - Chronic kidney disease, stage 3b Status: Chronic Assessment and Plan: * baseline creatinine runs ~ 1.3 - 1.8mg/dl in the last year * presumably due to HTN, diabetes, vascular disease and age-related change (3) Light-headedness: Code(s): R42 - Dizziness and giddiness Status: Acute Assessment and Plan: * consistent with orthostatic hypotension * agree with adequate hydration * amlodipine and chlorthalidone both stopped * DEAN hose and abdominal binder are in use * on midodrine therapy * should we increase dose to 15mg TID??? * Neurology following as well with medication recommendations noted * Cardiology following initially * s/p cardiac catheterization - findings noted * TSH is normal; cortisol lowish * stim test was okay * follow repeat orthostatic BPs Will continue to follow. Subjective Date/time seen: 07/20/24 13:18 Interval history: Follow-up for acute kidney injury/acute renal failure on chronic kidney disease and orthostatic hypotension. Still continues to have issues with lightheadedness with ambulation in spite of ongoing interventions/therapy; when supine or sitting, appears asymptomatic. Exam Narrative: General: elderly but WD/WN male in NAD Heart: normal S1 and S2; no rub Lungs: clear to auscultation Abdomen: soft, nontender, nondistended, positive bowel sounds Extremities: no cyanosis or clubbing; no edema Skin: no rash Objective Data Vital Signs Vital Signs: Vital Signs Temp Pulse Resp BP Pulse Ox O2 Del Method 07/20/24 12:00 85 07/20/24 10:40 122 H 22 H 97/53 L 100 07/20/24 10:35 112 H 16 113/42 L 99 07/20/24 10:30 102 H 14 174/57 H 99 07/20/24 08:00 86 07/20/24 08:50 Room Air 07/20/24 06:27 97.4 F L 70 18 136/58 L 98 07/20/24 04:00 73 07/20/24 00:00 60 07/20/24 00:00 98.1 F 66 18 128/42 L 97 Intake/Output Intake/Output: Intake & Output 07/17/24 07/18/24 07/19/24 07/20/24 23:59 23:59 23:59 23:59 Intake Total 2370 1530 1510 1360 Output Total 1550 2500 725 550 Balance 820 -970 785 810 Meds/Results Medications: Active Medications Generic Name Dose Route Start Last Admin Trade Name Freq PRN Reason Stop Dose Admin Allopurinol 300 mg 07/11/24 09:00 07/20/24 08:50 Allopurinol 300 Mg Tablet PO 300 mg DAILY CLARISSA Administration Alprazolam 0.5 mg 07/10/24 22:47 07/20/24 20:35 Alprazolam (*Crx) 0.5 Mg Tablet PO 07/30/24 22:46 0.5 mg TID PRN Administration Anxiety Aspirin 81 mg 07/11/24 09:00 07/20/24 08:49 Aspirin 81 Mg Enteric Tablet PO 81 mg DAILY CLARISSA Administration Dextrose 12.5 gm 07/18/24 09:48 Dextrose 50% 25 Gm/50 Ml Syringe IV PUSH PRN PRN Hypoglycemia Protocol Docusate Sodium 100 mg 07/12/24 17:11 07/12/24 17:31 Docusate Sodium 100 Mg Capsule PO 100 mg Q12H PRN Administration Constipation Famotidine 20 mg 07/12/24 17:00 07/20/24 16:52 Famotidine 20 Mg Tablet PO 20 mg 1700 CLARISSA Administration Glucagon 1 mg 07/18/24 09:48 Glucagon For Inj 1 Mg Vial IM PRN PRN Hypoglycemia Protocol Glucose 15 gm 07/18/24 09:48 Glucose Oral Gel 15 Gm Of Glucse In 37.5 Gm Tube PO PRN PRN Hypoglycemia Protocol Dextrose 1,000 mls @ 100 mls/hr 07/18/24 09:48 Dextrose 5% 1,000 Ml IVPB PRN PRN Hypoglycemia Protocol Insulin Aspart 3 - 6 units 07/18/24 12:00 07/20/24 17:01 Insulin Aspart (*Bkc) 100 Units/Ml SUB-Q Not Given TIDWM CLARISSA Protocol Insulin Aspart 1 - 3 units 07/18/24 21:00 07/20/24 20:51 Insulin Aspart (*Bkc) 100 Units/Ml SUB-Q Not Given HS [facility] Protocol Metoprolol Tartrate 25 mg 07/18/24 21:00 07/20/24 20:35 Metoprolol Tartrate 25 Mg Tablet PO 25 mg Q24H CLARISSA Administration Midodrine 10 mg 07/16/24 09:00 07/20/24 16:52 Midodrine Hcl 10 Mg Tablet PO 10 mg TID CLARISSA Administration Miscellaneous Information 0 each 07/10/24 00:01 07/11/24 00:26 Kerendia = Nonformulary. Can Pt Use From Home? XX 08/09/24 00:00 Not Given CLARIFY CLARISSA Nitroglycerin 0.4 mg 07/11/24 19:56 Nitroglycerin Sl 0.4 Mg Tablet SUBLINGUAL Q5MIN PRN Chest Pain Pantoprazole Sodium 40 mg 07/11/24 09:00 07/20/24 08:50 Pantoprazole 40 Mg Tablet PO 40 mg DAILY [facility] Administration Pentoxifylline 400 mg 07/11/24 09:00 07/20/24 16:52 Pentoxifylline 400 Mg Tabcr PO 400 mg TID CLARISSA Administration Pyridostigmine Maxie 30 mg 07/18/24 13:00 07/20/24 16:52 Pyridostigmine Maxie 30 Mg Tablet PO 30 mg TID [facility] Administration Rosuvastatin Calcium 40 mg 07/11/24 09:00 07/20/24 08:50 Rosuvastatin 20 Mg Tablet PO 40 mg DAILY [facility] Administration Ticagrelor 60 mg 07/10/24 21:00 07/20/24 20:35 Ticagrelor 60 Mg Tablet PO 60 mg Q12HR CLARISSA Administration Radiology Results: ITS Impressions Head CT 07/10/24 17:22 IMPRESSION: No acute intracranial process. Chest X-Ray 07/10/24 17:51 IMPRESSION: No acute cardiopulmonary process. Chest CTA 07/10/24 19:38 IMPRESSION: No CT evidence of acute pulmonary embolus. No acute process detected in the chest. ADDENDUM: 07/10/24 1950 1.7 cm right thyroid nodule, consider nonemergent outpatient thyroid ultrasound for further evaluation. Renal Ultrasound 07/16/24 08:17 IMPRESSION: 1. Normal kidney sizes. No hydronephrosis. Carotid Doppler Study 07/17/24 09:13 Impression: Mildly elevated velocities in the right internal carotid artery suggest moderate (50-69%) stenosis. Retrograde flow in the right vertebral artery. Consider subclavian steal syndrome. Note: The methodology used is an indirect measurement validated against a direct method (such as the NASCET criteria) that compares diameters at the stenosis to the distal ICA. Labs Labs: Laboratory Tests 07/19/24 05:06 07/19/24 05:07
[2024-07-20] MEDS: FAMOTIDINE 20 MG TABLET PO (16:52)
[2024-07-20 16:55] LABS: Glucose Point of Care 140 mg/dl (65-105)
[2024-07-20] MEDS: ONDANSETRON INJ 4 MG/2 ML VIAL IV PUSH (18:19)
[2024-07-20] MEDS: METOPROLOL TARTRATE 25 MG TABLET PO (20:35)
[2024-07-20 20:53] LABS: Glucose Point of Care 176 mg/dl (65-105)
[2024-07-21] VITALS (14 sets, daily range): BP systolic 104–171; BP diastolic 48–76; PULSE 68–111; RESP 14–18; TEMP 36.5–36.7; O2SAT 96–100
--- NOTE | 2024-07-21 07:21 | P.PNIM_ITS ---
Progress Note: A&P Assessment and Plan (1) Orthostatic hypotension: Code(s): I95.1 - Orthostatic hypotension Status: Acute Assessment and Plan: * Cardiology and nephrology consulted and following * Continue midodrine 10 mg t.i.d. * Continue abdominal binder and Mt hose * Continue checking orthostatic blood pressures Q shift * Change positions slowly * Neurology consulted for further assistance of orthostatic hypotension * Cortisol pending * Will check thyroid function- WNL * Florinef unfortunately would be contraindicated for him due to his CKD. * Stop nortriptyline and start pyridostigmine 30 mg TID per Neurology recommendation * Monitor for any bradycardias * Patient is still symptomatic overnight with orthostatic blood pressures and today was still positive orthostatics but feeling less symptomatic. 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 Carotid study: c/o r/o subclavian-vertebral artery steal syndrome. - main etiology for it is atherosclerosis. Pt is on high intensity statin already- 40 mg of rosuvastatin secondary prevention measures: BP control, BS control, life style changes -following [facility] already- has a f/u radha on decemebr 3 (2) JOEY (acute kidney injury): Code(s): N17.9 - Acute kidney failure, unspecified Status: Acute Assessment and Plan: * Creatinine 2.00 * Baseline 1.3 * S/P contrast exposure with CTA chest and cardiac catheterization. * Nephrology following * Avoid nephrotoxins * Renally adjust medications as appropriate (3) Chronic kidney disease, stage 3a: Code(s): N18.31 - Chronic kidney disease, stage 3a Status: Chronic Assessment and Plan: See above (4) Exertional dyspnea: Code(s): R06.09 - Other forms of dyspnea Status: Resolved Assessment and Plan: * Resolved * Denies symptoms currently. * Good O2 sats > 90 % on RA. * CXR negative for acute. * CTA chest negative for PE or acute process. * Continue to monitor for now. (5) CAD (coronary artery disease): Qualifiers: Associated angina: without angina Coronary Disease-Associated Artery/Lesion type: [place] artery [place] vs. transplanted heart: [place] heart Qualified Code(s): I25.10 - Atherosclerotic heart disease of [place] coronary artery without angina pectoris Code(s): I25.10 - Atherosclerotic heart disease of [place] coronary artery without angina pectoris Status: Chronic Assessment and Plan: * s/p C with no significant coronary occlusion observed. * Continue ASA, Brilinta 60mg b.i.d. (per [facility]) and statin * Cardiology following (6) GERD (gastroesophageal reflux disease): Code(s): K21.9 - Gastro-esophageal reflux disease without esophagitis Status: Chronic Assessment and Plan: * Continue Pantoprazole 40 mg PO daily. (7) Type 2 diabetes mellitus without complications: Qualifiers: Diabetes mellitus long term care administrator insulin use: without long term care administrator use Qualified Code(s): E11.9 - Type 2 diabetes mellitus without complications Code(s): E11.9 - Type 2 diabetes mellitus without complications Status: Chronic Assessment and Plan: * Blood sugars ranging 127-149 * Hgb A1C 7.9 on 08/13/22 * Will recheck Hgb A1C * Accu checks AC/HS * Moderate dose SSI ordered * hypoglycemic protocol in place * Diabetic diet ordered (8) Thyroid nodule: Code(s): E04.1 - Nontoxic single thyroid nodule Status: Acute Assessment and Plan: accidental finding on CTA for 1.7 cm right thyroid nodule consider nonemergent outpatient thyroid ultrasound for further evaluation. Time Spent With Patient Time with patient: Greater than 35 minutes Subjective Date/time seen: 07/21/24 07:21 Interval history: pt is seen and examined. doing a little better today, VS more stsble. reprots that he hS AN RADHA WITH vascular at [facility] on August 02. Review of Systems Review of Systems: lightheadedness with standing position. All systems reviewed & are unremarkable except as noted in HPI and below Constitutional: Constitutional: Reports as per HPI and Reports no additional constitutional complaints Eyes: Eyes: Reports as per HPI and Reports no additional eye complaints ENT: Reports system reviewed and no additional complaints, except as documented and Reports as per HPI Cardiovascular: Cardiovascular: Reports as per HPI and Reports no additional cardiovascular complaints Respiratory: Respiratory: Reports as per HPI and Reports no additional respiratory complaints Gastrointestinal: Gastrointestinal: Reports as per HPI and Reports no addition al gastrointestinal complaints Genitourinary: Genitourinary: Reports no additional male genitourinary complaints and Reports as per HPI Musculoskeletal: Musculoskeletal: Reports no additional musculoskeletal complaints and Reports as per HPI Integumentary/Breasts: Skin/Breast: Reports system reviewed and no additional complaints, except as docu and Reports as per HPI Neurologic: Reports system reviewed and no additional complaints, except as documented and Reports as per HPI Psychiatric: Psychiatric: Reports no additional psychiatric complaints and Reports as per HPI Exam Narrative: General: In no acute distress, well nourished Cardiac: Normal S1 and S2. No murmur, gallops or friction rubs, peripheral pulses intact. Respiratory: Lungs clear to auscultation, no adventitious lung sounds, currently on room air Gastrointestinal: soft, non-distended, non-tender, normoactive bowel sounds. : voiding without difficulty. Neuro: Alert and oriented x4 Const: General: cooperative, comfortable, no acute distress, well developed, alert, awake, ill appearing chronically and average body habitus Nutritional Appearance: average body habitus Orientation/consciousness: patient oriented x3 HENMT: Head: normal to inspection, normocephalic and atraumatic Ears: heari ng grossly normal bilaterally Face/Nose/Sinus: normal facial exam Face and sinus: normal facial exam Eyes: General: appearance normal, both eyes and all related structures Pupils: Equal, round and reactive pupils present EOM: EOMs intact bilaterally Neck: Neck: full ROM, no lymphadenopathy and no JVD Thyroid: thyroid normal Lymphatic: no lymphadenopathy noted Resp: Effort & Inspection: normal respiratory effort and able to speak in complete sentences Auscultation: clear to auscultation bilaterally Cardio: Jugular venous distension: no JVD Rate: regular rate and tachycardic Rhythm: regular rhythm Heart sounds: S1 normal heart sound present and S2 normal heart sound present GI: Inspection: obesity Auscultation: normal bowel sounds : General: Yes deferred Skin: General skin exam: no rashes or lesions noted Rashes: no rashes Wounds: no wounds Neuro: General: patient oriented x3 and CN's II-XI intact bilaterally Cranial nerves: Yes CN's II-XII intact bilaterally and Yes Equal, round and reactive pupils present Cognition (Neuro): normal cognition Speech: normal speech Gait exam (Neuro): Normal gait present Motor exam (neuro): 5/5 motor strength present throughout Extrem: General: normal to inspection, full ROM, no joint enlargement and no pedal edema Psych: Mental Status: mental status grossly normal Affect: normal affect Objective Data Vital Signs Vital Signs: Vital Signs - 24 hr 07/20/24 08:50 07/20/24 08:00 07/20/24 10:30 Temperature Pulse Rate 86 102 H Respiratory Rate 14 Blood Pressure 174/57 H Pulse Oximetry 99 Oxygen Delivery Room Air 07/20/24 10:35 07/20/24 10:40 07/20/24 12:00 Temperature Pulse Rate 112 H 122 H 85 Respiratory Rate 16 22 H Blood Pressure 113/42 L 97/53 L Pulse Oximetry 99 100 Oxygen Delivery 07/20/24 14:00 07/20/24 14:08 07/20/24 16:00 Temperature 98 F Pulse Rate 93 85 86 Respiratory Rate 14 14 Blood Pressure 136/62 146/52 H Pulse Oximetry 100 99 Oxygen Delivery 07/20/24 20:35 07/20/24 20:00 07/20/24 20:58 Temperature 97.8 F 97.8 F Pulse Rate 90 110 H 124 H Respiratory Rate 20 20 Blood Pressure 152/60 H 133/56 L Pulse Oximetry 96 98 Oxygen Delivery 07/20/24 20:59 07/20/24 22:00 07/20/24 20:00 Temperature 97.8 F 98.1 F Pulse Rate 138 H 66 Respiratory Rate 22 H 18 Blood Pressure 146/99 H 126/47 L Pulse Oximetry 95 97 Oxygen Delivery Room Air 07/20/24 20:00 07/21/24 00:00 07/21/24 04:00 Temperature Pulse Rate 128 H 68 81 Respiratory Rate Blood Pressure Pulse Oximetry Oxygen Delivery 07/21/24 06:00 Temperature 97.8 F Pulse Rate 78 Respiratory Rate 18 Blood Pressure 144/76 H Pulse Oximetry 96 Oxygen Delivery Intake/Output Intake/Output: Intake & Output 07/18/24 07/19/24 07/20/24 07/21/24 23:59 23:59 23:59 23:59 Intake Total 1530 1510 1360 Output Total 0068 725 550 Balance -970 785 810 Meds/Results Medications: Active Medications Generic Name Dose Route Start Last Admin Trade Name Freq PRN Reason Stop Dose Admin Allopurinol 300 mg 07/11/24 09:00 07/20/24 08:50 Allopurinol 300 Mg Tablet PO 300 mg DAILY CLARISSA Administration Alprazolam 0.5 mg 07/10/24 22:47 07/20/24 20:35 Alprazolam (*Crx) 0.5 Mg Tablet PO 07/30/24 22:46 0.5 mg TID PRN Administration Anxiety Aspirin 81 mg 07/11/24 09:00 07/20/24 08:49 Aspirin 81 Mg Enteric Tablet PO 81 mg DAILY CLARISSA Administration Dextrose 12.5 gm 07/18/24 09:48 Dextrose 50% 25 Gm/50 Ml Syringe IV PUSH PRN PRN Hypoglycemia Protocol Docusate Sodium 100 mg 07/12/24 17:11 07/12/24 17:31 Docusate Sodium 100 Mg Capsule PO 100 mg Q12H PRN Administration Constipation Famotidine 20 mg 07/12/24 17:00 07/20/24 16:52 Famotidine 20 Mg Tablet PO 20 mg 1700 CLARISSA Administration Glucagon 1 mg 07/18/24 09:48 Glucagon For Inj 1 Mg Vial IM PRN PRN Hypoglycemia Protocol Glucose 15 gm 07/18/24 09:48 Glucose Oral Gel 15 Gm Of Glucse In 37.5 Gm Tube PO PRN PRN Hypoglycemia Protocol Dextrose 1,000 mls @ 100 mls/hr 07/18/24 09:48 Dextrose 5% 1,000 Ml IVPB PRN PRN Hypoglycemia Protocol Insulin Aspart 3 - 6 units 07/18/24 12:00 07/20/24 17:01 Insulin Aspart (*Bkc) 100 Units/Ml SUB-Q Not Given TIDWM REPLACED BY [facility] Protocol Insulin Aspart 1 - 3 units 07/18/24 21:00 07/20/24 20:51 Insulin Aspart (*Bkc) 100 Units/Ml SUB-Q Not Given HS REPLACED BY [facility] Protocol Metoprolol Tartrate 25 mg 07/18/24 21:00 07/20/24 20:35 Metoprolol Tartrate 25 Mg Tablet PO 25 mg Q24H CLARISSA Administration Midodrine 10 mg 07/16/24 09:00 07/20/24 16:52 Midodrine Hcl 10 Mg Tablet PO 10 mg TID CLARISSA Administration Miscellaneous Information 0 each 07/10/24 00:01 07/11/24 00:26 Kerendia = Nonformulary. Can Pt Use From Home? XX 08/09/24 00:00 Not Given CLARIFY CLARISSA Nitroglycerin 0.4 mg 07/11/24 19:56 Nitroglycerin Sl 0.4 Mg Tablet SUBLINGUAL Q5MIN PRN Chest Pain Pantoprazole Sodium 40 mg 07/11/24 09:00 07/20/24 08:50 Pantoprazole 40 Mg Tablet PO 40 mg DAILY CLARISSA Administration Pentoxifylline 400 mg 07/11/24 09:00 07/20/24 16:52 Pentoxifylline 400 Mg Tabcr PO 400 mg TID CLARISSA Administration Pyridostigmine [place] 30 mg 07/18/24 13:00 07/20/24 16:52 Pyridostigmine [place] 30 Mg Tablet PO 30 mg TID CLARISSA Administration Rosuvastatin Calcium 40 mg 07/11/24 09:00 07/20/24 08:50 Rosuvastatin 20 Mg Tablet PO 40 mg DAILY CLARISSA Administration Ticagrelor 60 mg 07/10/24 21:00 07/20/24 20:35 Ticagrelor 60 Mg Tablet PO 60 mg Q12HR CLARISSA Administration Radiology Results: ITS Impressions Head CT 07/10/24 17:22 IMPRESSION: No acute intracranial process. Chest X-Ray 07/10/24 17:51 IMPRESSION: No acute cardiopulmonary process. Chest CTA 07/10/24 19:38 IMPRESSION: No CT evidence of acute pulmonary embolus. No acute process detected in the chest. ADDENDUM: 07/10/24 1950 1.7 cm right thyroid nodule, consider nonemergent outpatient thyroid ultrasound for further evaluation. Renal Ultrasound 07/16/24 08:17 IMPRESSION: 1. Normal kidney sizes. No hydronephrosis. Carotid Doppler Study 07/17/24 09:13 Impression: Mildly elevated velocities in the right internal carotid artery suggest moderate (50-69%) stenosis. Retrograde flow in the right vertebral artery. Consider subclavian steal syndrome. Note: The methodology used is an indirect measurement validated against a direct method (such as the NASCET criteria) that compares diameters at the stenosis to the distal ICA. Labs Labs: Laboratory Results - last 24 hr 07/17/24 07/20/24 07/20/24 15:45 07:51 12:46 POC Capillary Glucose 147 H 148 H Ur ROLY Interpret 24 hr 07/20/24 07/20/24 16:50 20:37 POC Capillary Glucose 140 H 176 H Ur ROLY Interpret 24 hr Quality VTE Prophylaxis VTE prophylaxis: mechanical ordered
[2024-07-21] MEDS: MIDODRINE HCL 10 MG TABLET PO ×2 (08:04→13:12)
[2024-07-21] MEDS: ASPIRIN 81 MG ENTERIC TABLET PO (08:04)
[2024-07-21] MEDS: pyRIDostigmine bromide 30 MG TABLET PO ×2 (08:04→17:44)
[2024-07-21] MEDS: allopurinoL 300 MG TABLET PO (08:04)
[2024-07-21] MEDS: PENTOXIFYLLINE 400 MG TABCR PO ×3 (08:04→17:44)
[2024-07-21] MEDS: PANTOPRAZOLE 40 MG TABLET PO (08:04)
[2024-07-21] MEDS: ROSUVASTATIN 20 MG TABLET 40 MG PO (08:04)
[2024-07-21 08:05] LABS: Glucose Point of Care 110 mg/dl (65-105)
[2024-07-21] MEDS: TICAGRELOR 60 MG TABLET PO ×2 (08:05→21:16)
[2024-07-21 08:45] LABS: Hematocrit 35.8 % (42.0-52.0); Hemoglobin 12.3 g/dL (14.0-18.0); Mean Corpuscular HGB Conc 34.4 g/dl (32-36); Mean Corpuscular Hemoglobin 31.7 pg (26-34); Mean Corpuscular Volume 92.3 fl (80-100); Mean Platelet Volume 10.6 fl (7.4-10.4); Platelet Count Result 254 k/mm3 (150-375); Red Blood Count 3.88 M/mm3 (4.6-6.20); Red Cell Distribution Width 13.5 % (11.5-14.5); White Blood Count 9.4 K/mm3 (4.5-10.0)
[2024-07-21 08:54] LABS: Anion Gap 6 mmol/L (4-12); Blood Urea Nitrogen 35 mg/dL (9-20); Calcium 10.9 mg/dL (8.4-10.2); Carbon Dioxide 32 mmol/L (22-30); Chloride 98 mmol/L (98-107); Estimated CRCL calculation 23 ml/min; Estimated Glomerular Filt Rate 28; Glucose 142 mg/dL (65-110); Potassium 3.8 mmol/L (3.4-5.0); Sodium 136 mmol/L (137-145)
[2024-07-21 11:37] LABS: Kappa\\Lambda Light Chains 1.38 (0.26-1.65); Lambda Light Chain 38.7 mg/L (5.7-26.3)
--- NOTE | 2024-07-21 11:50 | WPDNEUROPN ---
Progress Note: A&P Assessment and Plan (1) Orthostatic hypotension: Code(s): I95.1 - Orthostatic hypotension Status: Acute (2) Type 2 diabetes mellitus without complications: Qualifiers: Diabetes mellitus termite treater insulin use: without termite treater use Qualified Code(s): E11.9 - Type 2 diabetes mellitus without complications Code(s): E11.9 - Type 2 diabetes mellitus without complications Status: Chronic (3) Malignant neoplasm of prostate: Code(s): C61 - Malignant neoplasm of prostate Status: Resolved (4) Coronary artery disease: Code(s): I25.10 - Atherosclerotic heart disease of [place] coronary artery without angina pectoris Status: Chronic (5) Stage 3b chronic kidney disease: Code(s): N18.32 - Chronic kidney disease, stage 3b Status: Chronic Plan Given the GI symptoms we can reduce the dose of pyridostigmine to 30 mg twice a day and if necessary even stop it. He is off nortriptyline and is okay with it. I would suggest to follow-up his side effects. Increasing the midodrine can lead to systolic hypertension. He requires follow-up for orthostasis. Subjective Date/time seen: 07/21/24 11:50 Interval history: The patient is 73-year-old with history of cerebrovascular disease and to have postural hypotension currently on midodrine and a pyridostigmine. Standing blood pressure this morning was 110/60 as supine blood pressure was 144/76.Chepe complains of abdominal cramping which could be a side effect from pyridostigmine. No other symptoms. Review of Systems Review of Systems: All systems reviewed & are unremarkable except as noted in HPI and below Exam Narrative: Fully conscious alert oriented to self time place and person. Blood pressure 144/76 supine and 110/60 standing. Exam her cranial nerves and motor and sensory systems unremarkable no involuntary movements were seen. Objective Data Vital Signs Vital Signs: Vital Signs - 24 hr 07/20/24 12:00 07/20/24 14:00 07/20/24 14:08 Temperature 98 F Pulse Rate 85 93 85 Respiratory Rate 14 14 Blood Pressure 136/62 146/52 H Pulse Oximetry 100 99 Oxygen Delivery 07/20/24 16:00 07/20/24 20:35 07/20/24 20:00 Temperature 97.8 F Pulse Rate 86 90 110 H Respiratory Rate 20 Blood Pressure 152/60 H Pulse Oximetry 96 Oxygen Delivery 07/20/24 20:58 07/20/24 20:59 07/20/24 22:00 Temperature 97.8 F 97.8 F 98.1 F Pulse Rate 124 H 138 H 66 Respiratory Rate 20 22 H 18 Blood Pressure 133/56 L 146/99 H 126/47 L Pulse Oximetry 98 95 97 Oxygen Delivery 07/20/24 20:00 07/20/24 20:00 07/21/24 00:00 Temperature Pulse Rate 128 H 68 Respiratory Rate Blood Pressure Pulse Oximetry Oxygen Delivery Room Air 07/21/24 04:00 07/21/24 06:00 07/21/24 08:00 Temperature 97.8 F Pulse Rate 81 78 Respiratory Rate 18 Blood Pressure 144/76 H Pulse Oximetry 96 Oxygen Delivery Room Air 07/21/24 08:00 Temperature Pulse Rate 91 Respiratory Rate Blood Pressure Pulse Oximetry Oxygen Delivery Intake/Output Intake/Output: Intake & Output 07/18/24 07/19/24 07/20/24 07/21/24 23:59 23:59 23:59 23:59 Intake Total 1530 1510 1360 Output Total 2500 725 550 Balance -970 785 810 Meds/Results Medications: Active Medications Generic Name Dose Route Start Last Admin Trade Name Freq PRN Reason Stop Dose Admin Allopurinol 300 mg 07/11/24 09:00 07/21/24 08:04 Allopurinol 300 Mg Tablet PO 300 mg DAILY CLARISSA Administration Alprazolam 0.5 mg 07/10/24 22:47 07/20/24 20:35 Alprazolam (*Crx) 0.5 Mg Tablet PO 07/30/24 22:46 0.5 mg TID PRN Administration Anxiety Aspirin 81 mg 07/11/24 09:00 07/21/24 08:04 Aspirin 81 Mg Enteric Tablet PO 81 mg DAILY CLARISSA Administration Dextrose 12.5 gm 07/18/24 09:48 Dextrose 50% 25 Gm/50 Ml Syringe IV PUSH PRN PRN Hypoglycemia Protocol Docusate Sodium 100 mg 07/12/24 17:11 07/12/24 17:31 Docusate Sodium 100 Mg Capsule PO 100 mg Q12H PRN Administration Constipation Famotidine 20 mg 07/12/24 17:00 07/20/24 16:52 Famotidine 20 Mg Tablet PO 20 mg 1700 CLARISSA Administration Glucagon 1 mg 07/18/24 09:48 Glucagon For Inj 1 Mg Vial IM PRN PRN Hypoglycemia Protocol Glucose 15 gm 07/18/24 09:48 Glucose Oral Gel 15 Gm Of Glucse In 37.5 Gm Tube PO PRN PRN Hypoglycemia Protocol Dextrose 1,000 mls @ 100 mls/hr 07/18/24 09:48 Dextrose 5% 1,000 Ml IVPB PRN PRN Hypoglycemia Protocol Insulin Aspart 3 - 6 units 07/18/24 12:00 07/21/24 08:07 Insulin Aspart (*Bkc) 100 Units/Ml SUB-Q Not Given TIDWM CLARISSA Protocol Insulin Aspart 1 - 3 units 07/18/24 21:00 07/20/24 20:51 Insulin Aspart (*Bkc) 100 Units/Ml SUB-Q Not Given HS [facility] Protocol Metoprolol Tartrate 25 mg 07/18/24 21:00 07/20/24 20:35 Metoprolol Tartrate 25 Mg Tablet PO 25 mg Q24H CLARISSA Administration Midodrine 10 mg 07/16/24 09:00 07/21/24 08:04 Midodrine Hcl 10 Mg Tablet PO 10 mg TID CLARISSA Administration Miscellaneous Information 0 each 07/10/24 00:01 07/11/24 00:26 Kerendia = Nonformulary. Can Pt Use From Home? XX 08/09/24 00:00 Not Given CLARIFY CLARISSA Nitroglycerin 0.4 mg 07/11/24 19:56 Nitroglycerin Sl 0.4 Mg Tablet SUBLINGUAL Q5MIN PRN Chest Pain Pantoprazole Sodium 40 mg 07/11/24 09:00 07/21/24 08:04 Pantoprazole 40 Mg Tablet PO 40 mg DAILY CLARISSA Administration Pentoxifylline 400 mg 07/11/24 09:00 07/21/24 08:04 Pentoxifylline 400 Mg Tabcr PO 400 mg TID CLARISSA Administration Pyridostigmine [place] 30 mg 07/18/24 13:00 07/21/24 08:04 Pyridostigmine [place] 30 Mg Tablet PO 30 mg TID CLARISSA Administration Rosuvastatin Calcium 40 mg 07/11/24 09:00 07/21/24 08:04 Rosuvastatin 20 Mg Tablet PO 40 mg DAILY CLARISSA Administration Ticagrelor 60 mg 07/10/24 21:00 07/21/24 08:05 Ticagrelor 60 Mg Tablet PO 60 mg Q12HR CLARISSA Administration Radiology Results: ITS Impressions Head CT 07/10/24 17:22 IMPRESSION: No acute intracranial process. Chest X-Ray 07/10/24 17:51 IMPRESSION: No acute cardiopulmonary process. Chest CTA 07/10/24 19:38 IMPRESSION: No CT evidence of acute pulmonary embolus. No acute process detected in the chest. ADDENDUM: 07/10/24 1950 1.7 cm right thyroid nodule, consider nonemergent outpatient thyroid ultrasound for further evaluation. Renal Ultrasound 07/16/24 08:17 IMPRESSION: 1. Normal kidney sizes. No hydronephrosis. Carotid Doppler Study 07/17/24 09:13 Impression: Mildly elevated velocities in the right internal carotid artery suggest moderate (50-69%) stenosis. Retrograde flow in the right vertebral artery. Consider subclavian steal syndrome. Note: The methodology used is an indirect measurement validated against a direct method (such as the NASCET criteria) that compares diameters at the stenosis to the distal ICA. Labs Labs: Laboratory Results - last 24 hr 07/15/24 07/20/24 07/20/24 06:47 12:46 16:50 WBC RBC Hgb Hct MCV MCH MCHC RDW Plt Count MPV Sodium Potassium Chloride Carbon Dioxide Anion Gap BUN Creatinine Estim Creat Clear Calc Estimated GFR Glucose POC Capillary Glucose 148 H 140 H Calcium Steen/Lambda Ratio 1.38 Free Steen Light Chains 53.3 H Free Lambda Light Chain 38.7 H 07/20/24 07/21/24 07/21/24 20:37 08:03 08:18 WBC 9.4 RBC 3.88 L Hgb 12.3 L Hct 35.8 L MCV 92.3 MCH 31.7 MCHC 34.4 RDW 13.5 Plt Count 254 MPV 10.6 H Sodium 136 L Potassium 3.8 Chloride 98 Carbon Dioxide 32 H Anion Gap 6 BUN 35 H Creatinine 2.30 H Estim Creat Clear Calc 23 Estimated GFR 28 L Glucose 142 H POC Capillary Glucose 176 H 110 H Calcium 10.9 H Steen/Lambda Ratio Free Steen Light Chains Free Lambda Light Chain
[2024-07-21 11:54] LABS: Glucose Point of Care 171 mg/dl (65-105)
[2024-07-21] MEDS: ONDANSETRON INJ 4 MG/2 ML VIAL IV PUSH (12:52)
--- NOTE | 2024-07-21 14:00 | P.PNNP_ITS ---
Progress Note: A&P Assessment and Plan (1) JOEY (acute kidney injury): Code(s): N17.9 - Acute kidney failure, unspecified Status: Acute Assessment and Plan: * elevated above baseline on admission * evaluation to date noted: * renal ultrasound unremarkable * UA with 1+ protein * urine electrolytes and fractional excretion of urea were non pre renal * CK only slightly elevated, not enough to impact kidney function. * possibly related to fluctuating hemodynamics/orthostatic hypotension * complicated by contrast exposure x 2 (CT chest PE protocol and cardiac cath) during this hospital stay * follow trend of repeat labs and UOP (2) Stage 3b chronic kidney disease: Code(s): N18.32 - Chronic kidney disease, stage 3b Status: Chronic Assessment and Plan: * baseline creatinine runs ~ 1.3 - 1.8mg/dl in the last year * presumably due to HTN, diabetes, vascular disease and age-related change (3) Light-headedness: Code(s): R42 - Dizziness and giddiness Status: Acute Assessment and Plan: * consistent with orthostatic hypotension * agree with adequate hydration * amlodipine and chlorthalidone both stopped * DEAN hose and abdominal binder are in use * on midodrine therapy * should we consider a trial increased dose to 15mg TID??? * Neurology following as well with medication recommendations noted * Cardiology following initially * s/p cardiac catheterization - findings noted * TSH is normal; cortisol lowish * stim test was okay * follow repeat orthostatic BPs Will continue to follow. Subjective Date/time seen: 07/21/24 14:00 Interval history: Follow-up for acute kidney injury/acute renal failure on chronic kidney disease and orthostatic hypotension. Still with orthostatic hypotension although symptoms do not appear as bad as they have been before; medications adjustments noted/reviewed given concerns for potential side effects as well; no apparent distress noted at the time of my visit. Exam Narrative: General: elderly but WD/WN male in NAD Heart: normal S1 and S2; no rub Lungs: clear to auscultation Abdomen: soft, nontender, nondistended, positive bowel sounds Extremities: no cyanosis or clubbing; no edema Skin: no nodules Objective Data Vital Signs Vital Signs: Vital Signs Temp Pulse Resp BP Pulse Ox O2 Del Method 07/21/24 14:00 98.1 F 96 18 104/56 L 99 07/21/24 12:00 90 11/21/24 08:00 91 07/21/24 08:00 Room Air 07/21/24 06:00 97.8 F 78 18 144/76 H 96 07/21/24 04:00 81 07/21/24 00:00 68 07/20/24 20:00 128 H 07/20/24 20:00 Room Air 07/20/24 22:00 98.1 F 66 18 126/47 L 97 07/20/24 20:59 97.8 F 138 H 22 H 146/99 H 95 07/20/24 20:58 97.8 F 124 H 20 133/56 L 98 07/20/24 20:00 97.8 F 110 H 20 152/60 H 96 07/20/24 20:35 90 Intake/Output Intake/Output: Intake & Output 07/18/24 07/19/24 07/20/24 07/21/24 23:59 23:59 23:59 23:59 Intake Total 1530 1510 1360 360 Output Total 2500 725 550 Balance -970 785 810 360 Meds/Results Medications: Active Medications Generic Name Dose Route Start Last Admin Trade Name Freq PRN Reason Stop Dose Admin Allopurinol 300 mg 07/11/24 09:00 07/21/24 08:04 Allopurinol 300 Mg Tablet PO 300 mg DAILY CLARISSA Administration Alprazolam 0.5 mg 07/10/24 22:47 07/20/24 20:35 Alprazolam (*Crx) 0.5 Mg Tablet PO 07/30/24 22:46 0.5 mg TID PRN Administration Anxiety Aspirin 81 mg 07/11/24 09:00 07/21/24 08:04 Aspirin 81 Mg Enteric Tablet PO 81 mg DAILY CLARISSA Administration Dextrose 12.5 gm 07/18/24 09:48 Dextrose 50% 25 Gm/50 Ml Syringe IV PUSH PRN PRN Hypoglycemia Protocol Docusate Sodium 100 mg 07/12/24 17:11 07/12/24 17:31 Docusate Sodium 100 Mg Capsule PO 100 mg Q12H PRN Administration Constipation Famotidine 20 mg 07/12/24 17:00 07/20/24 16:52 Famotidine 20 Mg Tablet PO 20 mg 1700 CLARISSA Administration Glucagon 1 mg 07/18/24 09:48 Glucagon For Inj 1 Mg Vial IM PRN PRN Hypoglycemia Protocol Glucose 15 gm 07/18/24 09:48 Glucose Oral Gel 15 Gm Of Glucse In 37.5 Gm Tube PO PRN PRN Hypoglycemia Protocol Dextrose 1,000 mls @ 100 mls/hr 07/18/24 09:48 Dextrose 5% 1,000 Ml IVPB PRN PRN Hypoglycemia Protocol Insulin Aspart 3 - 6 units 07/18/24 12:00 07/21/24 17:09 Insulin Aspart (*Bkc) 100 Units/Ml SUB-Q Not Given TIDWM [facility]IS[facility] Protocol Insulin Aspart 1 - 3 units 07/18/24 21:00 07/20/24 20:51 Insulin Aspart (*Bkc) 100 Units/Ml SUB-Q Not Given HS [facility] Protocol Metoprolol Tartrate 25 mg 07/18/24 21:00 07/20/24 20:35 Metoprolol Tartrate 25 Mg Tablet PO 25 mg Q24H CLARISSA Administration Midodrine 10 mg 07/16/24 09:00 07/21/24 13:12 Midodrine Hcl 10 Mg Tablet PO 10 mg TID [facility] Administration Nitroglycerin 0.4 mg 07/11/24 19:56 Nitroglycerin Sl 0.4 Mg Tablet SUBLINGUAL Q5MIN PRN Chest Pain Non-Formulary Medication 10 mg 07/22/24 09:00 Finerenone [Kerendia] PO 08/21/24 08:59 DAILY [facility] Ondansetron HCl 4 mg 07/21/24 11:56 07/21/24 12:52 Ondansetron Inj 4 Mg/2 Ml Vial IV PUSH 4 mg Q6H PRN Administration Nausea And Vomiting Pantoprazole Sodium 40 mg 07/11/24 09:00 07/21/24 08:04 Pantoprazole 40 Mg Tablet PO 40 mg DAILY [facility] Administration Pentoxifylline 400 mg 07/11/24 09:00 07/21/24 13:12 Pentoxifylline 400 Mg Tabcr PO 400 mg TID [facility] Administration Pyridostigmine [place] 30 mg 07/21/24 17:00 Pyridostigmine [place] 30 Mg Tablet PO BID [facility] Rosuvastatin Calcium 40 mg 07/11/24 09:00 07/21/24 08:04 Rosuvastatin 20 Mg Tablet PO 40 mg DAILY [facility] Administration Ticagrelor 60 mg 07/10/24 21:00 07/21/24 08:05 Ticagrelor 60 Mg Tablet PO 60 mg Q12HR [facility]IS[facility] Administration Radiology Results: ITS Impressions Head CT 07/10/24 17:22 IMPRESSION: No acute intracranial process. Chest X-Ray 07/10/24 17:51 IMPRESSION: No acute cardiopulmonary process. Chest CTA 07/10/24 19:38 IMPRESSION: No CT evidence of acute pulmonary embolus. No acute process detected in the chest. ADDENDUM: 07/10/24 1950 1.7 cm right thyroid nodule, consider nonemergent outpatient thyroid ultrasound for further evaluation. Renal Ultrasound 07/16/24 08:17 IMPRESSION: 1. Normal kidney sizes. No hydronephrosis. Carotid Doppler Study 07/17/24 09:13 Impression: Mildly elevated velocities in the right internal carotid artery suggest moderate (50-69%) stenosis. Retrograde flow in the right vertebral artery. Consider subclavian steal syndrome. Note: The methodology used is an indirect measurement validated against a direct method (such as the NASCET criteria) that compares diameters at the stenosis to the distal ICA. Labs Labs: Laboratory Tests 07/21/24 08:18 07/21/24 08:18
[2024-07-21 14:22] LABS: Albumin 32 %
[2024-07-21 17:07] LABS: Glucose Point of Care 116 mg/dl (65-105)
[2024-07-21] MEDS: FAMOTIDINE 20 MG TABLET PO (17:44)
[2024-07-21] MEDS: METOPROLOL TARTRATE 25 MG TABLET PO (21:14)
[2024-07-21 21:58] LABS: Glucose Point of Care 141 mg/dl (65-105)
[2024-07-22] VITALS (14 sets, daily range): BP systolic 82–168; BP diastolic 45–58; PULSE 73–128; RESP 16–18; TEMP 36.4–36.8; O2SAT 96–99
[2024-07-22 06:22] LABS: Hematocrit 33.6 % (42.0-52.0); Hemoglobin 11.3 g/dL (14.0-18.0); Mean Corpuscular HGB Conc 33.6 g/dl (32-36); Mean Corpuscular Volume 92.3 fl (80-100); Mean Platelet Volume 10.8 fl (7.4-10.4); Platelet Count Result 223 k/mm3 (150-375); Red Blood Count 3.64 M/mm3 (4.6-6.20); Red Cell Distribution Width 13.5 % (11.5-14.5); White Blood Count 9.3 K/mm3 (4.5-10.0)
[2024-07-22 06:31] LABS: Anion Gap 8 mmol/L (4-12); Blood Urea Nitrogen 34 mg/dL (9-20); Calcium 10.8 mg/dL (8.4-10.2); Carbon Dioxide 32 mmol/L (22-30); Chloride 97 mmol/L (98-107); Estimated CRCL calculation 22 ml/min; Estimated Glomerular Filt Rate 27; Glucose 117 mg/dL (65-110); Potassium 3.9 mmol/L (3.4-5.0); Sodium 137 mmol/L (137-145)
[2024-07-22 08:00] LABS: Glucose Point of Care 153 mg/dl (65-105)
[2024-07-22] MEDS: ASPIRIN 81 MG ENTERIC TABLET PO (08:32)
[2024-07-22] MEDS: PENTOXIFYLLINE 400 MG TABCR PO ×2 (08:32→13:52)
[2024-07-22] MEDS: TICAGRELOR 60 MG TABLET PO ×2 (08:32→20:52)
[2024-07-22] MEDS: MIDODRINE HCL 10 MG TABLET PO ×2 (08:32→17:54)
[2024-07-22] MEDS: allopurinoL 300 MG TABLET PO (08:32)
[2024-07-22] MEDS: PANTOPRAZOLE 40 MG TABLET PO (08:32)
[2024-07-22] MEDS: pyRIDostigmine bromide 30 MG TABLET PO (08:32)
[2024-07-22] MEDS: ROSUVASTATIN 20 MG TABLET 40 MG PO (08:33)
[2024-07-22 12:06] LABS: Glucose Point of Care 185 mg/dl (65-105)
--- NOTE | 2024-07-22 12:06 | PM.PNNEP ---
Progress Note: A&P Assessment and Plan (1) JOEY (acute kidney injury): Code(s): N17.9 - Acute kidney failure, unspecified Status: Acute Assessment and Plan: elevated above baseline on admission evaluation to date noted: renal ultrasound unremarkable UA with 1+ protein urine eosinophils negative urine electrolytes and fractional excretion of urea were non pre renal CK only slightly elevated, not enough to impact kidney function. possibly related to fluctuating hemodynamics/orthostatic hypotension complicated by contrast exposure x 2 (CT chest PE protocol and cardiac cath) during this hospital stay follow trend of repeat labs and UOP (2) Stage 3b chronic kidney disease: Code(s): N18.32 - Chronic kidney disease, stage 3b Status: Chronic Assessment and Plan: baseline creatinine runs ~ 1.3 - 1.8mg/dl in the last year presumably due to HTN, diabetes, vascular disease and age-related change (3) Light-headedness: Code(s): R42 - Dizziness and giddiness Status: Acute Assessment and Plan: consistent with orthostatic hypotension amlodipine and chlorthalidone discontinued DEAN hose and abdominal binder are in use on midodrine therapy Neurology following as well with medication recommendations noted Cardiology following initially s/p cardiac catheterization - findings noted TSH is normal; cortisol lowish stim test was okay consider another trial of IVFs (?) follow repeat orthostatic BPs Will continue to follow. Subjective Date/time seen: 07/22/24 12:06 Interval history: Follow-up for acute kidney injury/acute renal failure on chronic kidney disease and orthostatic hypotension. No real significant change noted when seen; still with orthostatic vital signs and symptoms may be a bit worse at this time (possible due to the GI side effects of pyridostigmine?); renal function also slightly worse by AM labs as well (also due to GI side effects from pyridostigmine?); no acute distress at the time of my visit. Exam Narrative: General: elderly but WD/WN male in NAD Heart: normal S1 and S2; no rub Lungs: clear to auscultation Abdomen: soft, nontender, nondistended, positive bowel sounds Extremities: no cyanosis or clubbing; no edema Skin: warm and dry Objective Data Vital Signs Vital Signs: Vital Signs Temp Pulse Resp BP Pulse Ox O2 Del Method 07/22/24 10:29 128 H 18 82/45 L 99 07/22/24 10:29 115 H 18 110/53 L 96 07/22/24 10:00 114 H 18 135/54 L 97 07/22/24 08:00 100 07/22/24 06:53 97.6 F 100 16 141/58 H 98 07/22/24 04:00 82 07/22/24 00:00 78 07/21/24 20:00 82 07/21/24 20:00 Room Air 07/21/24 21:15 111 H 108/49 L 07/21/24 21:12 101 H 129/55 L 07/21/24 21:05 89 168/52 H 07/21/24 21:05 97.7 F 89 14 168/52 H 100 07/21/24 21:14 109 H 07/21/24 17:45 110 H 18 104/48 L 100 07/21/24 17:45 85 18 145/58 H 97 07/21/24 17:44 83 18 171/58 H 97 Intake/Output Intake/Output: Intake & Output 07/19/24 07/20/24 07/21/24 07/22/24 23:59 23:59 23:59 23:59 Intake Total 1510 1360 1940 540 Output Total 725 550 400 Balance 145 212 1663 140 Meds/Results Medications: Active Medications Generic Name Dose Route Start Last Admin Trade Name Freq PRN Reason Stop Dose Admin Allopurinol 300 mg 07/11/24 09:00 07/22/24 08:32 Allopurinol 300 Mg Tablet PO 300 mg DAILY CLARISSA Administration Alprazolam 0.5 mg 07/10/24 22:47 07/20/24 20:35 Alprazolam (*Crx) 0.5 Mg Tablet PO 07/30/24 22:46 0.5 mg TID PRN Administration Anxiety Aspirin 81 mg 07/11/24 09:00 07/22/24 08:32 Aspirin 81 Mg Enteric Tablet PO 81 mg DAILY CL[facility]ISSA Administration Dextrose 12.5 gm 07/18/24 09:48 Dextrose 50% 25 Gm/50 Ml Syringe IV PUSH PRN PRN Hypoglycemia Protocol Docusate Sodium 100 mg 07/12/24 17:11 07/12/24 17:31 Docusate Sodium 100 Mg Capsule PO 100 mg Q12H PRN Administration Constipation Famotidine 20 mg 07/12/24 17:00 07/21/24 17:44 Famotidine 20 Mg Tablet PO 20 mg 1700 CLARISSA Administration Glucagon 1 mg 07/18/24 09:48 Glucagon For Inj 1 Mg Vial IM PRN PRN Hypoglycemia Protocol Glucose 15 gm 07/18/24 09:48 Glucose Oral Gel 15 Gm Of Glucse In 37.5 Gm Tube PO PRN PRN Hypoglycemia Protocol Dextrose 1,000 mls @ 100 mls/hr 07/18/24 09:48 Dextrose 5% 1,000 Ml IVPB PRN PRN Hypoglycemia Protocol Sodium Chloride 1,000 mls @ 100 mls/hr 07/22/24 15:40 Normal Saline Iv IV CONT .Q10H [facility] Insulin Aspart 3 - 6 units 07/18/24 12:00 07/22/24 12:27 Insulin Aspart (*Bkc) 100 Units/Ml SUB-Q Not Given TIDWM [facility] Protocol Insulin Aspart 1 - 3 units 07/18/24 21:00 07/21/24 21:17 Insulin Aspart (*Bkc) 100 Units/Ml SUB-Q Not Given HS [facility] Protocol Metoprolol Tartrate 25 mg 07/18/24 21:00 07/21/24 21:14 Metoprolol Tartrate 25 Mg Tablet PO 25 mg Q24H [facility] Administration Midodrine 10 mg 07/22/24 17:00 Midodrine Hcl 10 Mg Tablet PO BID [facility] Nitroglycerin 0.4 mg 07/11/24 19:56 Nitroglycerin Sl 0.4 Mg Tablet SUBLINGUAL Q5MIN PRN Chest Pain Non-Formulary Medication 10 mg 07/22/24 09:00 Finerenone [Kerendia] PO 08/21/24 08:59 DAILY [facility] Ondansetron HCl 4 mg 07/21/24 11:56 07/21/24 12:52 Ondansetron Inj 4 Mg/2 Ml Vial IV PUSH 4 mg Q6H PRN Administration Nausea And Vomiting Pantoprazole Sodium 40 mg 07/11/24 09:00 07/22/24 08:32 Pantoprazole 40 Mg Tablet PO 40 mg DAILY [facility] Administration Pentoxifylline 400 mg 07/11/24 09:00 07/22/24 13:52 Pentoxifylline 400 Mg Tabcr PO 400 mg TID [facility] Administration Pyridostigmine [place] 30 mg 07/21/24 17:00 07/22/24 08:32 Pyridostigmine [place] 30 Mg Tablet PO 30 mg BID [facility] Administration Rosuvastatin Calcium 40 mg 07/11/24 09:00 07/22/24 08:33 Rosuvastatin 20 Mg Tablet PO 40 mg DAILY [facility] Administration Ticagrelor 60 mg 07/10/24 21:00 07/22/24 08:32 Ticagrelor 60 Mg Tablet PO 60 mg Q12HR [facility] Administration Radiology Results: ITS Impressions Head CT 07/10/24 17:22 IMPRESSION: No acute intracranial process. Chest X-Ray 07/10/24 17:51 IMPRESSION: No acute cardiopulmonary process. Chest CTA 07/10/24 19:38 IMPRESSION: No CT evidence of acute pulmonary embolus. No acute process detected in the chest. ADDENDUM: 07/10/24 1950 1.7 cm right thyroid nodule, consider nonemergent outpatient thyroid ultrasound for further evaluation. Renal Ultrasound 07/16/24 08:17 IMPRESSION: 1. Normal kidney sizes. No hydronephrosis. Carotid Doppler Study 07/17/24 09:13 Impression: Mildly elevated velocities in the right internal carotid artery suggest moderate (50-69%) stenosis. Retrograde flow in the right vertebral artery. Consider subclavian steal syndrome. Note: The methodology used is an indirect measurement validated against a direct method (such as the NASCET criteria) that compares diameters at the stenosis to the distal ICA. Labs Labs: Laboratory Tests 07/22/24 05:36 07/22/24 05:36
[2024-07-22] MEDS: SODIUM CHLORIDE 0.9% IV 1,000 ML 999 ML IV CONT (13:53)
--- NOTE | 2024-07-22 15:31 | P.PNIM_ITS ---
Progress Note: A&P Assessment and Plan (1) Orthostatic hypotension: Code(s): I95.1 - Orthostatic hypotension Status: Acute Assessment and Plan: * Cardiology and nephrology consulted and following * midodrine 10 mg t.i.d.- bid now as systolic BP was very high * Continue abdominal binder and Mt hose * Continue checking orthostatic blood pressures Q shift * Change positions slowly * Neurology consulted for further assistance of orthostatic hypotension * Cortisol ordered * Will check thyroid function- WNL * Florinef unfortunately would be contraindicated for him due to his CKD. * Stop nortriptyline and start pyridostigmine 30 mg TID per Neurology recommendation * pyridostigmine was causing too [facility] GI upset- so stopped * Monitor for any bradycardias * Patient is still symptomatic overnight with orthostatic blood pressures and today was still positive orthostatics but feeling less symptomatic. 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 Carotid study: c/o r/o subclavian-vertebral artery steal syndrome. - main etiology for it is atherosclerosis. Pt is on high intensity statin already- 40 mg of rosuvastatin secondary prevention measures: BP control, BS control, life style changes -following with vascular already- has a f/u radha on [facility] 07/22- called [facility] and discussed with Dr Bradford, vascular surgeon- he doesn't think that his history or vascular stenosis and endarterectomy is the reason for his orthostatics. - He had been having diminished oral intake due to side effects from pyridostigmine- so it was stopped and we will give him 250 m olus and add gentle iV hydration. (2) JOEY (acute kidney injury): Code(s): N17.9 - Acute kidney failure, unspecified Status: Acute Assessment and Plan: * Creatinine 2.00 * Baseline 1.3 * S/P contrast exposure with CTA chest and cardiac catheterization. * Nephrology following * Avoid nephrotoxins * Renally adjust medications as appropriate * 07/22- somewhat better, will add gentle IV hydration as BUN still high (3) Chronic kidney disease, stage 3a: Code(s): N18.31 - Chronic kidney disease, stage 3a Status: Chronic Assessment and Plan: See above (4) Exertional dyspnea: Code(s): R06.09 - Other forms of dyspnea Status: Resolved Assessment and Plan: * Resolved * Denies symptoms currently. * Good O2 sats > 90 % on RA. * CXR negative for acute. * CTA chest negative for PE or acute process. * Continue to monitor for now. (5) CAD (coronary artery disease): Qualifiers: Coronary Disease-Associated Artery/Lesion type: [place] artery [place] vs. transplanted heart: [place] heart Associated angina: without angina Qualified Code(s): I25.10 - Atherosclerotic heart disease of [place] coronary artery without angina pectoris Code(s): I25.10 - Atherosclerotic heart disease of [place] coronary artery without angina pectoris Status: Chronic Assessment and Plan: * s/p LHC with no significant coronary occlusion observed. * Continue ASA, Brilinta 60mg b.i.d. (per [facility]) and statin * Cardiology following (6) GERD (gastroesophageal reflux disease): Code(s): K21.9 - Gastro-esophageal reflux disease without esophagitis Status: Chronic Assessment and Plan: * Continue Pantoprazole 40 mg PO daily. (7) Type 2 diabetes mellitus without complications: Qualifiers: Diabetes mellitus jail insulin use: without intermediate project manager use Qualified Code(s): E11.9 - Type 2 diabetes mellitus without complications Code(s): E11.9 - Type 2 diabetes mellitus without complications Status: Chronic Assessment and Plan: * Blood sugars ranging 127-149 * Hgb A1C 7.9 on 08/13/22 * Will recheck Hgb A1C * Accu checks AC/HS * Moderate dose SSI ordered * hypoglycemic protocol in place * Diabetic diet ordered (8) Thyroid nodule: Code(s): E04.1 - Nontoxic single thyroid nodule Status: Acute Assessment and Plan: accidental finding on CTA for 1.7 cm right thyroid nodule consider nonemergent outpatient thyroid ultrasound for further evaluation. Time Spent With Patient Time with patient: Greater than 35 minutes Subjective Date/time seen: 07/22/24 15:31 Interval history: seen and examined. Still orthostatic, worse than yesterday. I called [facility] to discuss with his vascular surgeon- Dr Aniceto Foley. Spoke with DR Bradford. Images were sent over. He doesn't think the transfer is appropriate as he doensot believe his symptoms are due to his vascular problems but rather other reasons. Pt has f/u with DR Foley on decemebr 3rd. we will add iv hydration, decrease midodrine and stop pyridostigmine as it was causing him too much GI upset that he was not able to eat an drink much at all. Review of Systems Review of Systems: lightheadedness with standing position. All systems reviewed & are unremarkable except as noted in HPI and below Constitutional: Constitutional: Reports as per HPI and Reports no additional constitutional complaints Eyes: Eyes: Reports as per HPI and Reports no additional eye complaints ENT: Reports system reviewed and no additional complaints, except as documented and Reports as per HPI Cardiovascular: Cardiovascular: Reports as per HPI and Reports no additional cardiovascular complaints Respiratory: Respiratory: Reports as per HPI and Reports no additional respiratory complaints Gastrointestinal: Gastrointestinal: Reports as per HPI and Reports no additional gastrointestinal complaints Genitourinary: Genitourinary: Reports no additional male genitourinary complaints and Reports as per HPI Musculoskeletal: Musculoskeletal: Reports no additional musculoskeletal complaints and Reports as per HPI Integumentary/Breasts: Skin/Breast: Reports system reviewed and no additional complaints, except as docu and Reports as per HPI Neurologic: Reports system reviewed and no additional complaints, except as documented and Reports as per HPI Psychiatric: Psychiatric: Reports no additional psychiatric complaints and Reports as per HPI Exam Narrative: General: In no acute distress, well nourished Cardiac: Normal S1 and S2. No murmur, gallops or friction rubs, peripheral pulses intact. Respiratory: Lungs clear to auscultation, no adventitious lung sounds, currently on room air Gastrointestinal: soft, non-distended, non-tender, normoactive bowel sounds. : voiding without difficulty. Neuro: Alert and oriented x4 Const: General: cooperative, comfortable, no acute distress, well developed, alert, awake, ill appearing chronically and average body habitus Nutritional Appearance: average body habitus Orientation/consciousness: patient oriented x3 HENMT: Head: normal to inspection, normocephalic and atraumatic Ears: hearing grossly normal bilaterally Face/Nose/Sinus: normal facial exam Face and sinus: normal facial exam Eyes: General: appearance normal, both eyes and all related structures Pupils: Equal, round and reactive pupils present EOM: EOMs intact bilaterally Neck: Neck: full ROM, no lymphadenopathy and no JVD Thyroid: thyroid normal Lymphatic: no lymphadenopathy noted Resp: Effort & Inspection: normal respiratory effort and able to speak in complete sentences Auscultation: clear to auscultation bilaterally Cardio: Jugular venous distension: no JVD Rate: regular rate and tachycardic Rhythm: regular rhythm Heart sounds: S1 normal heart sound present and S2 normal heart sound present GI: Inspection: obesity Auscultation: normal bowel sounds : General: Yes deferred Skin: General skin exam: no rashes or lesions noted Rashes: no rashes Wounds: no wounds Neuro: General: patient oriented x3 and CN's II-XI intact bilaterally Cranial nerves: Yes CN's II-XII intact bilaterally and Yes Equal, round and reactive pupils present Cognition (Neuro): normal cognition Speech: normal speech Gait exam (Neuro): Normal gait present Motor exam (neuro): 5/5 motor strength present throughout Extrem: General: normal to inspection, full ROM, no joint enlargement and no pedal edema Psych: Mental Status: mental status grossly normal Affect: normal affect Objective Data Vital Signs Vital Signs: Vital Signs - 24 hr 07/21/24 16:00 07/21/24 17:44 07/21/24 17:45 Temperature Pulse Rate 77 83 85 Respiratory Rate 18 18 Blood Pressure 171/58 H 145/58 H Pulse Oximetry 97 97 Oxygen Delivery 07/21/24 17:45 07/21/24 21:14 07/21/24 21:05 Temperature 97.7 F Pulse Rate 110 H 109 H 89 Respiratory Rate 18 14 Blood Pressure 104/48 L 168/52 H Pulse Oximetry 100 100 Oxygen Delivery 07/21/24 21:05 07/21/24 21:12 07/21/24 21:15 Temperature Pulse Rate 89 101 H 111 H Respiratory Rate Blood Pressure 168/52 H 129/55 L 108/49 L Pulse Oximetry Oxygen Delivery 07/21/24 20:00 07/21/24 20:00 07/22/24 00:00 Temperature Pulse Rate 82 78 Respiratory Rate Blood Pressure Pulse Oximetry Oxygen Delivery Room Air 07/22/24 04:00 07/22/24 06:53 07/22/24 08:00 Temperature 97.6 F Pulse Rate 82 100 100 Respiratory Rate 16 Blood Pressure 141/58 H Pulse Oximetry 98 Oxygen Delivery 07/22/24 10:00 07/22/24 10:29 07/22/24 10:29 Temperature Pulse Rate 114 H 115 H 128 H Respiratory Rate 18 18 18 Blood Pressure 135/54 L 110/53 L 82/45 L Pulse Oximetry 97 96 99 Oxygen Delivery 07/22/24 08:00 07/22/24 14:00 Temperature 98.2 F Pulse Rate 92 Respiratory Rate 18 Blood Pressure 128/46 L Pulse Oximetry 99 Oxygen Delivery Room Air Intake/Output Intake/Output: Intake & Output 07/19/24 07/20/24 07/21/24 07/22/24 23:59 23:59 23:59 23:59 Intake Total 1510 1360 1940 540 Output Total 725 550 400 Balance 151 267 8893 140 Meds/Results Medications: Active Medications Generic Name Dose Route Start Last Admin Trade Name Freq PRN Reason Stop Dose Admin Allopurinol 300 mg 07/11/24 09:00 07/22/24 08:32 Allopurinol 300 Mg Tablet PO 300 mg DAILY CLARISSA Administration Alprazolam 0.5 mg 07/10/24 22:47 07/20/24 20:35 Alprazolam (*Crx) 0.5 Mg Tablet PO 07/30/24 22:46 0.5 mg TID PRN Administration Anxiety Aspirin 81 mg 07/11/24 09:00 07/22/24 08:32 Aspirin 81 Mg Enteric Tablet PO 81 mg DAILY CLARISSA Administration Dextrose 12.5 gm 07/18/24 09:48 Dextrose 50% 25 Gm/50 Ml Syringe IV PUSH PRN PRN Hypoglycemia Protocol Docusate Sodium 100 mg 07/12/24 17:11 07/12/24 17:31 Docusate Sodium 100 Mg Capsule PO 100 mg Q12H PRN Administration Constipation Famotidine 20 mg 07/12/24 17:00 07/21/24 17:44 Famotidine 20 Mg Tablet PO 20 mg 1700 CLARISSA Administration Glucagon 1 mg 07/18/24 09:48 Glucagon For Inj 1 Mg Vial IM PRN PRN Hypoglycemia Protocol Glucose 15 gm 07/18/24 09:48 Glucose Oral Gel 15 Gm Of Glucse In 37.5 Gm Tube PO PRN PRN Hypoglycemia Protocol Dextrose 1,000 mls @ 100 mls/hr 07/18/24 09:48 Dextrose 5% 1,000 Ml IVPB PRN PRN Hypoglycemia Protocol Insulin Aspart 3 - 6 units 07/18/24 12:00 07/22/24 12:27 Insulin Aspart (*Bkc) 100 Units/Ml SUB-Q Not Given TIDWM [facility] Protocol Insulin Aspart 1 - 3 units 07/18/24 21:00 07/21/24 21:17 Insulin Aspart (*Bkc) 100 Units/Ml SUB-Q Not Given HS [facility] Protocol Metoprolol Tartrate 25 mg 07/18/24 21:00 07/21/24 21:14 Metoprolol Tartrate 25 Mg Tablet PO 25 mg Q24H CLARISSA Administration Midodrine 10 mg 07/22/24 17:00 Midodrine Hcl 10 Mg Tablet PO BID CL[facility]ISSA Nitroglycerin 0.4 mg 07/11/24 19:56 Nitroglycerin Sl 0.4 Mg Tablet SUBLINGUAL Q5MIN PRN Chest Pain Non-Formulary Medication 10 mg 07/22/24 09:00 Finerenone [Kerendia] PO 08/21/24 08:59 DAILY CL[facility]IS[facility] Ondansetron HCl 4 mg 07/21/24 11:56 07/21/24 12:52 Ondansetron Inj 4 Mg/2 Ml Vial IV PUSH 4 mg Q6H PRN Administration Nausea And Vomiting Pantoprazole Sodium 40 mg 07/11/24 09:00 07/22/24 08:32 Pantoprazole 40 Mg Tablet PO 40 mg DAILY [facility] Administration Pentoxifylline 400 mg 07/11/24 09:00 07/22/24 13:52 Pentoxifylline 400 Mg Tabcr PO 400 mg TID [facility] Administration Pyridostigmine [place] 30 mg 07/21/24 17:00 07/22/24 08:32 Pyridostigmine [place] 30 Mg Tablet PO 30 mg BID [facility] Administration Rosuvastatin Calcium 40 mg 07/11/24 09:00 07/22/24 08:33 Rosuvastatin 20 Mg Tablet PO 40 mg DAILY [facility] Administration Ticagrelor 60 mg 07/10/24 21:00 07/22/24 08:32 Ticagrelor 60 Mg Tablet PO 60 mg Q12HR CL[facility]ISSA Administration Radiology Results: ITS Impressions Head CT 07/10/24 17:22 IMPRESSION: No acute intracranial process. Chest X-Ray 07/10/24 17:51 IMPRESSION: No acute cardiopulmonary process. Chest CTA 07/10/24 19:38 IMPRESSION: No CT evidence of acute pulmonary embolus. No acute process detected in the chest. ADDENDUM: 07/10/24 1950 1.7 cm right thyroid nodule, consider nonemergent outpatient thyroid ultrasound for further evaluation. Renal Ultrasound 07/16/24 08:17 IMPRESSION: 1. Normal kidney sizes. No hydronephrosis. Carotid Doppler Study 07/17/24 09:13 Impression: Mildly elevated velocities in the right internal carotid artery suggest moderate (50-69%) stenosis. Retrograde flow in the right vertebral artery. Consider subclavian steal syndrome. Note: The methodology used is an indirect measurement validated against a direct method (such as the NASCET criteria) that compares diameters at the stenosis to the distal ICA. Labs Labs: Laboratory Results - last 24 hr 07/21/24 07/21/24 07/22/24 17:02 21:09 05:36 WBC 9.3 RBC 3.64 L Hgb 11.3 L Hct 33.6 L MCV 92.3 MCH 31.0 MCHC 33.6 RDW 13.5 Plt Count 223 MPV 10.8 H Sodium 137 Potassium 3.9 Chloride 97 L Carbon Dioxide 32 H Anion Gap 8 BUN 34 H Creatinine 2.40 H Estim Creat Clear Calc 22 Estimated GFR 27 L Glucose 117 H POC Capillary Glucose 116 H 141 H Calcium 10.8 H 07/22/24 07/22/24 07:56 12:04 WBC RBC Hgb Hct MCV MCH MCHC RDW Plt Count MPV Sodium Potassium Chloride Carbon Dioxide Anion Gap BUN Creatinine Estim Creat Clear Calc Estimated GFR Glucose POC Capillary Glucose 153 H 185 H Calcium Quality VTE Prophylaxis VTE prophylaxis: mechanical ordered
[2024-07-22] MEDS: ONDANSETRON INJ 4 MG/2 ML VIAL IV PUSH (16:25)
[2024-07-22] MEDS: FAMOTIDINE 20 MG TABLET PO (16:25)
[2024-07-22 16:54] LABS: Glucose Point of Care 140 mg/dl (65-105)
[2024-07-22] MEDS: SODIUM CHLORIDE 0.9% IV 1,000 ML 100 ML IV CONT (20:51)
[2024-07-22] MEDS: ALPRAZolam (*CRX) 0.5 MG TABLET PO (20:52)
[2024-07-22] MEDS: METOPROLOL TARTRATE 25 MG TABLET PO (20:52)
[2024-07-22] MEDS: DOCUSATE SODIUM 100 MG CAPSULE PO (20:52)
[2024-07-22 21:49] LABS: Glucose Point of Care 145 mg/dl (65-105)
[2024-07-23] VITALS (15 sets, daily range): BP systolic 105–160; BP diastolic 33–58; PULSE 53–92; RESP 16; TEMP 36.6–36.7; O2SAT 92–100
[2024-07-23 05:32] LABS: Hematocrit 29.3 % (42.0-52.0); Mean Corpuscular HGB Conc 34.1 g/dl (32-36); Mean Corpuscular Hemoglobin 31.5 pg (26-34); Mean Corpuscular Volume 92.4 fl (80-100); Mean Platelet Volume 10.5 fl (7.4-10.4); Platelet Count Result 205 k/mm3 (150-375); Red Blood Count 3.17 M/mm3 (4.6-6.20); Red Cell Distribution Width 13.6 % (11.5-14.5); White Blood Count 7.1 K/mm3 (4.5-10.0)
[2024-07-23 05:54] LABS: Anion Gap 1 mmol/L (4-12); Blood Urea Nitrogen 27 mg/dL (9-20); Calcium 9.8 mg/dL (8.4-10.2); Carbon Dioxide 30 mmol/L (22-30); Chloride 105 mmol/L (98-107); Estimated CRCL calculation 24 ml/min; Estimated Glomerular Filt Rate 29; Glucose 115 mg/dL (65-110); Potassium 3.8 mmol/L (3.4-5.0); Sodium 136 mmol/L (137-145)
[2024-07-23] MEDS: SODIUM CHLORIDE 0.9% IV 1,000 ML 100 ML IV CONT ×2 (06:55→17:15)
[2024-07-23] MEDS: ROSUVASTATIN 20 MG TABLET 40 MG PO (08:18)
[2024-07-23] MEDS: ASPIRIN 81 MG ENTERIC TABLET PO (08:18)
[2024-07-23] MEDS: TICAGRELOR 60 MG TABLET PO ×2 (08:18→20:48)
[2024-07-23] MEDS: PANTOPRAZOLE 40 MG TABLET PO (08:18)
[2024-07-23] MEDS: MIDODRINE HCL 10 MG TABLET PO ×2 (08:18→17:15)
[2024-07-23] MEDS: allopurinoL 300 MG TABLET PO (08:21)
[2024-07-23 08:40] LABS: Glucose Point of Care 114 mg/dl (65-105)
[2024-07-23 10:02] LABS: Glucose Point of Care 198 mg/dl (65-105)
--- NOTE | 2024-07-23 11:54 | P.PNNP_ITS ---
Progress Note: A&P Assessment and Plan (1) JOEY (acute kidney injury): Code(s): N17.9 - Acute kidney failure, unspecified Status: Acute Assessment and Plan: * elevated above baseline on admission * has not significantly worsened or improved... * evaluation to date noted: * renal ultrasound unremarkable * UA with 1+ protein * urine eosinophils negative * urine electrolytes and fractional excretion of urea were non pre renal * CK only slightly elevated, not enough to impact kidney function. * possibly related to fluctuating hemodynamics/orthostatic hypotension * complicated by contrast exposure x 2 (CT chest PE protocol and cardiac cath) during this hospital stay * follow trend of repeat labs and UOP (2) Stage 3b chronic kidney disease: Code(s): N18.32 - Chronic kidney disease, stage 3b Status: Chronic Assessment and Plan: * baseline creatinine runs ~ 1.3 - 1.8mg/dl in the last year * presumably due to HTN, diabetes, vascular disease and age-related change (3) Light-headedness: Code(s): R42 - Dizziness and giddiness Status: Acute Assessment and Plan: * consistent with orthostatic hypotension * amlodipine and chlorthalidone discontinued * DEAN hose and abdominal binder are in use * on midodrine therapy * Neurology following as well with medication recommendations noted * Cardiology following initially * s/p cardiac catheterization - findings noted * TSH is normal; cortisol lowish * stim test was okay * trial of IVFs ongoing * follow repeat orthostatic BPs Not opposed to discharge from renal perspective if he is otherwise medically stable -- he can follow-up with Dr. Garibay in the office for ongoing CKD management. Will continue to follow. Subjective Date/time seen: 07/23/24 11:54 Interval history: Follow-up for acute kidney injury/acute renal failure on chronic kidney disease and orthostatic hypotension. Renal function/creatinine appears to be a bit better with onogoing trial of IVFs; remains orthostatic but seems to think the IVFs seems to have helped in g eneral' no apparent distress voiced on my visit; no other events overnight or earlier this morning. Exam Narrative: General: elderly but WD/WN male in NAD Heart: normal S1 and S2; no rub Lungs: clear to auscultation Abdomen: soft, nontender, nondistended, positive bowel sounds Extremities: no cyanosis or clubbing; no edema Skin: warm and intact Objective Data Vital Signs Vital Signs: Vital Signs Temp Pulse Resp BP Pulse Ox O2 Del Method FiO2 07/23/24 11:00 86 07/23/24 08:00 77 07/23/24 08:15 Room Air 07/22/24 21:43 87 114/51 L 07/22/24 21:41 73 139/56 L 07/23/24 04:32 97.9 F 81 16 141/48 H 98 07/22/24 21:37 78 168/58 H 07/22/24 21:37 97.5 F L 78 16 168/58 H 99 07/23/24 04:00 92 07/23/24 00:00 64 07/22/24 20:00 86 07/22/24 20:00 81 18 99 Room Air 07/22/24 20:52 81 07/22/24 16:00 79 Intake/Output Intake/Output: Intake & Output 07/20/24 07/21/24 07/22/24 07/23/24 23:59 23:59 23:59 23:59 Intake Total 1360 1940 1330 1470 Output Total 550 400 Balance 810 4462 402 4177 Meds/Results Medications: Active Medications Generic Name Dose Route Start Last Admin Trade Name Freq PRN Reason Stop Dose Admin Allopurinol 300 mg 07/11/24 09:00 07/23/24 08:21 Allopurinol 300 Mg Tablet PO 300 mg DAILY CLARISSA Administration Alprazolam 0.5 mg 07/10/24 22:47 07/22/24 20:52 Alprazolam (*Crx) 0.5 Mg Tablet PO 07/30/24 22:46 0.5 mg TID PRN Administration Anxiety Aspirin 81 mg 07/11/24 09:00 07/23/24 08:18 Aspirin 81 Mg Enteric Tablet PO 81 mg DAILY CLARISSA Administration Dextrose 12.5 gm 07/18/24 09:48 Dextrose 50% 25 Gm/50 Ml Syringe IV PUSH PRN PRN Hypoglycemia Protocol Docusate Sodium 100 mg 07/12/24 17:11 07/22/24 20:52 Docusate Sodium 100 Mg Capsule PO 100 mg Q12H PRN Administration Constipation Famotidine 20 mg 07/12/24 17:00 07/22/24 16:25 Famotidine 20 Mg Tablet PO 20 mg 1700 CLARISSA Administration Glucagon 1 mg 07/18/24 09:48 Glucagon For Inj 1 Mg Vial IM PRN PRN Hypoglycemia Protocol Glucose 15 gm 07/18/24 09:48 Glucose Oral Gel 15 Gm Of Glucse In 37.5 Gm Tube PO PRN PRN Hypoglycemia Protocol Dextrose 1,000 mls @ 100 mls/hr 07/18/24 09:48 Dextrose 5% 1,000 Ml IVPB PRN PRN Hypoglycemia Protocol Sodium Chloride 1,000 mls @ 100 mls/hr 07/22/24 15:40 07/23/24 06:55 Normal Saline Iv IV CONT 100 mls/hr .Q10H CLARISSA Administration Insulin Aspart 3 - 6 units 07/18/24 12:00 07/23/24 12:08 Insulin Aspart (*Bkc) 100 Units/Ml SUB-Q Not Given TIDWM [facility] Protocol Insulin Aspart 1 - 3 units 07/18/24 21:00 07/22/24 21:32 Insulin Aspart (*Bkc) 100 Units/Ml SUB-Q Not Given HS [facility] Protocol Metoprolol Tartrate 25 mg 07/18/24 21:00 07/22/24 20:52 Metoprolol Tartrate 25 Mg Tablet PO 25 mg Q24H CLARISSA Administration Midodrine 10 mg 07/22/24 17:00 07/23/24 08:18 Midodrine Hcl 10 Mg Tablet PO 10 mg BID CLARISSA Administration Nitroglycerin 0.4 mg 07/11/24 19:56 Nitroglycerin Sl 0.4 Mg Tablet SUBLINGUAL Q5MIN PRN Chest Pain Non-Formulary Medication 10 mg 07/22/24 09:00 Finerenone [Kerendia] PO 08/21/24 08:59 DAILY [facility] Ondansetron HCl 4 mg 07/21/24 11:56 07/22/24 16:25 Ondansetron Inj 4 Mg/2 Ml Vial IV PUSH 4 mg Q6H PRN Administration Nausea And Vomiting Pantoprazole Sodium 40 mg 07/11/24 09:00 07/23/24 08:18 Pantoprazole 40 Mg Tablet PO 40 mg DAILY [facility] Administration Pentoxifylline 400 mg 07/11/24 09:00 07/23/24 12:05 Pentoxifylline 400 Mg Tabcr PO Not Given TID [facility] Rosuvastatin Calcium 40 mg 07/11/24 09:00 07/23/24 08:18 Rosuvastatin 20 Mg Tablet PO 40 mg DAILY [facility]IS[facility] Administration Ticagrelor 60 mg 07/10/24 21:00 07/23/24 08:18 Ticagrelor 60 Mg Tablet PO 60 mg Q12HR CL[facility]ISSA Administration Radiology Results: ITS Impressions Head CT 07/10/24 17:22 IMPRESSION: No acute intracranial process. Chest X-Ray 07/10/24 17:51 IMPRESSION: No acute cardiopulmonary process. Chest CTA 07/10/24 19:38 IMPRESSION: No CT evidence of acute pulmonary embolus. No acute process detected in the chest. ADDENDUM: 07/10/24 1950 1.7 cm right thyroid nodule, consider nonemergent outpatient thyroid ultrasound for further evaluation. Renal Ultrasound 07/16/24 08:17 IMPRESSION: 1. Normal kidney sizes. No hydronephrosis. Carotid Doppler Study 07/17/24 09:13 Impression: Mildly elevated velocities in the right internal carotid artery suggest moderate (50-69%) stenosis. Retrograde flow in the right vertebral artery. Consider subclavian steal syndrome. Note: The methodology used is an indirect measurement validated against a direct method (such as the NASCET criteria) that compares diameters at the stenosis to the distal ICA. Labs Labs: Laboratory Tests 07/23/24 05:05 07/23/24 05:05
[2024-07-23 12:06] LABS: Glucose Point of Care 160 mg/dl (65-105)
--- NOTE | 2024-07-23 15:29 | P.PNIM_ITS ---
Progress Note: A&P Assessment and Plan (1) Orthostatic hypotension: Code(s): I95.1 - Orthostatic hypotension Status: Acute Assessment and Plan: * Cardiology and nephrology consulted and following * Started midodrine 5 mg p.o. t.i.d. * d/c midodrine 10 mg t.i.d.- bid now as systolic BP was very high * Continue abdominal binder and Mt hose * Continue checking orthostatic blood pressures Q shift * Change positions slowly * Neurology consulted for further assistance of orthostatic hypotension * Cortisol ordered * Will check thyroid function- WNL * Consider fludrocortisone if necessary. * Stop nortriptyline and start pyridostigmine 30 mg TID per Neurology recommendation * pyridostigmine was causing too uh GI upset- so stopped * Monitor for any bradycardias * Patient is still symptomatic overnight with orthostatic blood pressures and today was still positive orthostatics but feeling less symptomatic. 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 Carotid study: c/o r/o subclavian-vertebral artery steal syndrome. - main etiology for it is atherosclerosis. Pt is on high intensity statin already- 40 mg of rosuvastatin secondary prevention measures: BP control, BS control, life style changes -following with vascular already- has a f/u radha on [facility] 07/22- called [facility] and discussed with Dr Bradford, vascular surgeon- he doesn't think that his history or vascular stenosis and endarterectomy is the reason for his orthostatics. (2) JOEY (acute kidney injury): Code(s): N17.9 - Acute kidney failure, unspecified Status: Acute Assessment and Plan: * Creatinine 2.00 * Baseline 1.3 * S/P contrast exposure with CTA chest and cardiac catheterization. * Nephrology following * Avoid nephrotoxins * Renally adjust medications as appropriate * 07/22- somewhat better, will add gentle IV hydration as BUN still high (3) Chronic kidney disease, stage 3a: Code(s): N18.31 - Chronic kidney disease, stage 3a Status: Chronic Assessment and Plan: See above (4) Exertional dyspnea: Code(s): R06.09 - Other forms of dyspnea Status: Resolved Assessment and Plan: * Resolved * Denies symptoms currently. * Good O2 sats > 90 % on RA. * CXR negative for acute. * CTA chest negative for PE or acute process. * Continue to monitor for now. (5) CAD (coronary artery disease): Qualifiers: Associated angina: without angina Coronary Disease-Associated Artery/Lesion type: [place] artery [place] vs. transplanted heart: [place] heart Qualified Code(s): I25.10 - Atherosclerotic heart disease of [place] coronary artery without angina pectoris Code(s): I25.10 - Atherosclerotic heart disease of [place] coronary artery without angina pectoris Status: Chronic Assessment and Plan: * s/p LHC with no significant coronary occlusion observed. * Continue ASA, Brilinta 60mg b.i.d. (per [facility]) and statin * Cardiology following (6) GERD (gastroesophageal reflux disease): Code(s): K21.9 - Gastro-esophageal reflux disease without esophagitis Status: Chronic Assessment and Plan: * Continue Pantoprazole 40 mg PO daily. (7) Type 2 diabetes mellitus without complications: Qualifiers: Diabetes mellitus detention insulin use: without detention use Qualified Code(s): E11.9 - Type 2 diabetes mellitus without complications Code(s): E11.9 - Type 2 diabetes mellitus without complications Status: Chronic Assessment and Plan: * Blood sugars ranging 127-149 * Hgb A1C 7.9 on 08/13/22 * Will recheck Hgb A1C * Accu checks AC/HS * Moderate dose SSI ordered * hypoglycemic protocol in place * Diabetic diet ordered (8) Thyroid nodule: Code(s): E04.1 - Nontoxic single thyroid nodule Status: Acute Assessment and Plan: accidental finding on CTA for 1.7 cm right thyroid nodule consider nonemergent outpatient thyroid ultrasound for further evaluation. Subjective Date/time seen: 07/23/24 15:29 Interval history: Patient has episodes of orthostatic hypertension. Patient was previously managed with midodrine 10 mg p.o. t.i.d. but there were incidences of supine hypertension and reduce to 10 mg b.i.d.. Patient was also seen with and neurologist and was started on pyridostigmine which patient did not tolerate. Patient had history of right carotid endarterectomy at [facility]. Patient underwent carotid Doppler during this admission which shows mildly elevated velocities in the right internal carotid artery suggesting moderate 50-69% stenosis. Previous hospitalist spoke with Dr. Zamudio his vascular surgeon who thinks his orthostatic hypotension is not related to the right internal carotid artery stenosis. Today we explained in detail about lifestyle modification to prevent the episodes of orthostatic hypotension. Patient completely understood and possible discharge tomorrow. Review of Systems Review of Systems: lightheadedness with standing position. All systems reviewed & are unremarkable except as noted in HPI and below Constitutional: Constitutional: Reports as per HPI and Reports no additional constitutional complaints Eyes: Eyes: Reports as per HPI and Reports no additional eye complaints ENT: Reports system reviewed and no additional complaints, except as documented and Reports as per HPI Cardiovascular: Cardiovascular: Reports as per HPI and Reports no additional cardiovascular complaints Respiratory: Respiratory: Reports as per HPI and Reports no additional respiratory complaints Gastrointestinal: Gastrointestinal: Reports as per HPI and Reports no a dditional gastrointestinal complaints Genitourinary: Genitourinary: Reports no additional male genitourinary complaints and Reports as per HPI Musculoskeletal: Musculoskeletal: Reports no additional musculoskeletal complaints and Reports as per HPI Integumentary/Breasts: Skin/Breast: Reports system reviewed and no additional complaints, except as docu and Reports as per HPI Neurologic: Reports system reviewed and no additional complaints, except as documented and Reports as per HPI Psychiatric: Psychiatric: Reports no additional psychiatric complaints and Reports as per HPI Exam Narrative: General: In no acute distress, well nourished Cardiac: Normal S1 and S2. No murmur, gallops or friction rubs, peripheral pulses intact. Respiratory: Lungs clear to auscultation, no adventitious lung sounds, currently on room air Gastrointestinal: soft, non-distended, non-tender, normoactive bowel sounds. : voiding without difficulty. Neuro: Alert and oriented x4 Const: General: cooperative, comfortable, no acute distress, well developed, alert, awake, ill appearing chronically and average body habitus Nutritional Appearance: average body habitus Orientation/consciousness: patient oriented x3 HENMT: Head: normal to inspection, normocephalic and atraumatic Ears: hearing grossly normal bilaterally Face/Nose/Sinus: normal facial exam Face and sinus: normal facial exam Eyes: General: appearance normal, both eyes and all related structures Pupils: Equal, round and reactive pupils present EOM: EOMs intact bilaterally Neck: Neck: full ROM, no lymphadenopathy and no JVD Thyroid: thyroid normal Lymphatic: no lymphadenopathy noted Resp: Effort & Inspection: normal respiratory effort and able to speak in complete sentences Auscultation: clear to auscultation bilaterally Cardio: Jugular venous distension: no JVD Rate: regular rate and tachycardic Rhythm: regular rhythm Heart sounds: S1 normal heart sound present and S2 normal heart sound present GI: Inspection: obesity Auscultation: normal bowel sounds : General: Yes deferred Skin: General skin exam: no rashes or lesions noted Rashes: no rashes Wounds: no wounds Neuro: General: patient oriented x3 and CN's II-XI intact bilaterally Cranial nerves: Yes CN's II-XII intact bilaterally and Yes Equal, round and reactive pupils present Cognition (Neuro): normal cognition Speech: normal speech Gait exam (Neuro): Normal gait present Motor exam (neuro): 5/5 motor strength present throughout Extrem: General: normal to inspection, full ROM, no joint enlargement and no pedal edema Psych: Mental Status: mental status grossly normal Affect: normal affect Objective Data Vital Signs Vital Signs: Vital Signs - 24 hr 07/22/24 16:00 07/22/24 20:52 07/22/24 20:00 Temperature Pulse Rate 79 81 81 Respiratory Rate 18 Blood Pressure Pulse Oximetry 99 Oxygen Delivery Room Air Fraction of Inspired Oxygen 07/22/24 20:00 07/23/24 00:00 07/23/24 04:00 Temperature Pulse Rate 86 64 92 Respiratory Rate Blood Pressure Pulse Oximetry Oxygen Delivery Fraction of Inspired Oxygen 07/22/24 21:37 07/22/24 21:37 07/23/24 04:32 Temperature 97.5 F L 97.9 F Pulse Rate 78 78 81 Respiratory Rate 16 16 Blood Pressure 168/58 H 168/58 H 141/48 H Pulse Oximetry 99 98 Oxygen Delivery Fraction of Inspired Oxygen 07/22/24 21:41 07/22/24 21:43 07/23/24 08:15 Temperature Pulse Rate 73 87 Respiratory Rate Blood Pressure 139/56 L 114/51 L Pulse Oximetry Oxygen Delivery Room Air Fraction of Inspired Oxygen 07/23/24 08:00 07/23/24 12:00 07/23/24 14:20 Temperature 98.1 F Pulse Rate 77 86 53 L Respiratory Rate Blood Pressure 116/37 L Pulse Oximetry 99 Oxygen Delivery Fraction of Inspired Oxygen 07/23/24 14:00 07/23/24 14:21 07/23/24 14:21 Temperature 98.1 F Pulse Rate 60 74 85 Respiratory Rate 16 Blood Pressure 138/50 L 126/38 L 105/33 L Pulse Oximetry 100 99 92 Oxygen Delivery Fraction of Inspired Oxygen Intake/Output Intake/Output: Intake & Output 07/20/24 07/21/24 07/22/24 07/23/24 23:59 23:59 23:59 23:59 Intake Total 1360 1940 1330 1470 Output Total 550 400 Balance 810 0395 914 0346 Meds/Results Medications: Active Medications Generic Name Dose Route Start Last Admin Trade Name Freq PRN Reason Stop Dose Admin Allopurinol 300 mg 07/11/24 09:00 07/23/24 08:21 Allopurinol 300 Mg Tablet PO 300 mg DAILY CLARISSA Administration Alprazolam 0.5 mg 07/10/24 22:47 07/22/24 20:52 Alprazolam (*Crx) 0.5 Mg Tablet PO 07/30/24 22:46 0.5 mg TID PRN Administration Anxiety Aspirin 81 mg 07/11/24 09:00 07/23/24 08:18 Aspirin 81 Mg Enteric Tablet PO 81 mg DAILY CLARISSA Administration Dextrose 12.5 gm 07/18/24 09:48 Dextrose 50% 25 Gm/50 Ml Syringe IV PUSH PRN PRN Hypoglycemia Protocol Docusate Sodium 100 mg 07/12/24 17:11 07/22/24 20:52 Docusate Sodium 100 Mg Capsule PO 100 mg Q12H PRN Administration Constipation Famotidine 20 mg 07/12/24 17:00 07/22/24 16:25 Famotidine 20 Mg Tablet PO 20 mg 1700 CLARISSA Administration Glucagon 1 mg 07/18/24 09:48 Glucagon For Inj 1 Mg Vial IM PRN PRN Hypoglycemia Protocol Glucose 15 gm 07/18/24 09:48 Glucose Oral Gel 15 Gm Of Glucse In 37.5 Gm Tube PO PRN PRN Hypoglycemia Protocol Dextrose 1,000 mls @ 100 mls/hr 07/18/24 09:48 Dextrose 5% 1,000 Ml IVPB PRN PRN Hypoglycemia Protocol Sodium Chloride 1,000 mls @ 100 mls/hr 07/22/24 15:40 07/23/24 06:55 Normal Saline Iv IV CONT 100 mls/hr .Q10H CLARISSA Administration Insulin Aspart 3 - 6 units 07/18/24 12:00 07/23/24 12:08 Insulin Aspart (*Bkc) 100 Units/Ml SUB-Q Not Given TIDWM [facility] Protocol Insulin Aspart 1 - 3 units 07/18/24 21:00 07/22/24 21:32 Insulin Aspart (*Bkc) 100 Units/Ml SUB-Q Not Given HS [facility] Protocol Metoprolol Tartrate 25 mg 07/18/24 21:00 07/22/24 20:52 Metoprolol Tartrate 25 Mg Tablet PO 25 mg Q24H CL[facility]ISSA Administration Midodrine 10 mg 07/22/24 17:00 07/23/24 08:18 Midodrine Hcl 10 Mg Tablet PO 10 mg BID [facility] Administration Nitroglycerin 0.4 mg 07/11/24 19:56 Nitroglycerin Sl 0.4 Mg Tablet SUBLINGUAL Q5MIN PRN Chest Pain Non-Formulary Medication 10 mg 07/22/24 09:00 Finerenone [Kerendia] PO 08/21/24 08:59 DAILY [facility] Ondansetron HCl 4 mg 07/21/24 11:56 07/22/24 16:25 Ondansetron Inj 4 Mg/2 Ml Vial IV PUSH 4 mg Q6H PRN Administration Nausea And Vomiting Pantoprazole Sodium 40 mg 07/11/24 09:00 07/23/24 08:18 Pantoprazole 40 Mg Tablet PO 40 mg DAILY [facility] Administration Pentoxifylline 400 mg 07/11/24 09:00 07/23/24 12:05 Pentoxifylline 400 Mg Tabcr PO Not Given TID [facility] Rosuvastatin Calcium 40 mg 07/11/24 09:00 07/23/24 08:18 Rosuvastatin 20 Mg Tablet PO 40 mg DAILY [facility] Administration Ticagrelor 60 mg 07/10/24 21:00 07/23/24 08:18 Ticagrelor 60 Mg Tablet PO 60 mg Q12HR [facility] Administration Radiology Results: ITS Impressions Head CT 07/10/24 17:22 IMPRESSION: No acute intracranial process. Chest X-Ray 07/10/24 17:51 IMPRESSION: No acute cardiopulmonary process. Chest CTA 07/10/24 19:38 IMPRESSION: No CT evidence of acute pulmonary embolus. No acute process detected in the chest. ADDENDUM: 07/10/24 1950 1.7 cm right thyroid nodule, consider nonemergent outpatient thyroid ultrasound for further evaluation. Renal Ultrasound 07/16/24 08:17 IMPRESSION: 1. Normal kidney sizes. No hydronephrosis. Carotid Doppler Study 07/17/24 09:13 Impression: Mildly elevated velocities in the right internal carotid artery suggest moderate (50-69%) stenosis. Retrograde flow in the right vertebral artery. Consider subclavian steal syndrome. Note: The methodology used is an indirect measurement validated against a direct method (such as the NASCET criteria) that compares diameters at the stenosis to the distal ICA. Labs Labs: Laboratory Results - last 24 hr 07/22/24 07/22/24 07/23/24 16:49 21:29 05:05 WBC 7.1 RBC 3.17 L Hgb 10.0 L Hct 29.3 L MCV 92.4 MCH 31.5 MCHC 34.1 RDW 13.6 Plt Count 205 MPV 10.5 H Sodium 136 L Potassium 3.8 Chloride 105 Carbon Dioxide 30 Anion Gap 1 L BUN 27 H Creatinine 2.20 H Estim Creat Clear Calc 24 Estimated GFR 29 L Glucose 115 H POC Capillary Glucose 140 H 145 H Calcium 9.8 07/23/24 07/23/24 07/23/24 08:08 09:57 11:50 WBC RBC Hgb Hct MCV MCH MCHC RDW Plt Count MPV Sodium Potassium Chloride Carbon Dioxide Anion Gap BUN Creatinine Estim Creat Clear Calc Estimated GFR Glucose POC Capillary Glucose 114 H 198 H 160 H Calcium Quality VTE Prophylaxis VTE prophylaxis: mechanical ordered Hospitalist MIPS Advance Care Plan I have confirmed that the patient's Advanced Care Plan is present, code status is documented, or surrogate decision maker is listed in patient medical record.: Yes Medication Reconciliation I have utilized all available resources to obtain, update and review the patients current medications (includes all prescriptions, OTC, herbals, cannabis, and nutritional supplements).: Yes
[2024-07-23 16:54] LABS: Glucose Point of Care 107 mg/dl (65-105)
[2024-07-23] MEDS: FAMOTIDINE 20 MG TABLET PO (17:18)
--- NOTE | 2024-07-23 17:51 | P.PNNEUR_ITS ---
Progress Note: A&P Assessment and Plan (1) Orthostatic hypotension: Code(s): I95.1 - Orthostatic hypotension Status: Acute (2) Type 2 diabetes mellitus without complications: Qualifiers: Diabetes mellitus exterminator helper termite insulin use: without exterminator helper termite use Qualified Code(s): E11.9 - Type 2 diabetes mellitus without complications Code(s): E11.9 - Type 2 diabetes mellitus without complications Status: Chronic (3) Coronary artery disease: Code(s): I25.10 - Atherosclerotic heart disease of [place] coronary artery without angina pectoris Status: Chronic (4) Carotid stenosis, asymptomatic: Code(s): I65.29 - Occlusion and stenosis of unspecified carotid artery Status: Acute Plan Patient seems to be tolerating midodrine 5 mg 3 times a day and pyridostigmine 30 mg twice a day for now. He should continue the same. If necessary you may increase the dose of these by one-step to midodrine 10 mg 3 times a day since the pyridostigmine led to stomach cramps. Other option will be to add Droxidopa 100 mg 3 times a day if possible hyper to the continues to be persistent. with such combination we may still have to watch for side effects such as heart rate and supine hypertension. Subjective Date/time seen: 07/23/24 17:51 Interval history: Patient is 73-year-old with history of postural hypotension and chronic kidney disease, diabetes mellitus, coronary artery disease. Patient lives alone and has 2 sons who [place] in [place] area. The patient is feeling overall better today and is stomach symptoms have improved since we lower the dose of Mestinon to 30 mg twice a day. He is currently on midodrine 5 mg 3 times a day. The dose of midodrine was lower in view of the systolic blood pressure going up to 168 on 07/22. Diastolic pressure was as low as 33 earlier this morning. However, the patient overall feeling better and he does not have any symptoms of orthostasis. Review of Systems Review of Systems: All systems reviewed & are unremarkable except as noted in HPI and below Exam Narrative: Fully conscious alert oriented to self time place and person examination of cranial nerves were within normal range. Motor system normal power and tone in both upper lower limbs. No involuntary movements are seen. Objective Data Vital Signs Vital Signs: Vital Signs - 24 hr 07/22/24 20:52 07/22/24 20:00 07/22/24 20:00 Temperature Pulse Rate 81 81 86 Respiratory Rate 18 Blood Pressure Pulse Oximetry 99 Oxygen Delivery Room Air Fraction of Inspired Oxygen 07/23/24 00:00 07/23/24 04:00 07/22/24 21:37 Temperature 97.5 F L Pulse Rate 64 92 78 Respiratory Rate 16 Blood Pressure 168/58 H Pulse Oximetry 99 Oxygen Delivery Fraction of Inspired Oxygen 07/22/24 21:37 07/23/24 04:32 07/22/24 21:41 Temperature 97.9 F Pulse Rate 78 81 73 Respiratory Rate 16 Blood Pressure 168/58 H 141/48 H 139/56 L Pulse Oximetry 98 Oxygen Delivery Fraction of Inspired Oxygen 07/22/24 21:43 07/23/24 08:15 07/23/24 08:00 Temperature Pulse Rate 87 77 Respiratory Rate Blood Pressure 114/51 L Pulse Oximetry Oxygen Delivery Room Air Fraction of Inspired Oxygen 07/23/24 12:00 07/23/24 14:20 07/23/24 14:00 Temperature 98.1 F 98.1 F Pulse Rate 86 53 L 60 Respiratory Rate 16 Blood Pressure 116/37 L 138/50 L Pulse Oximetry 99 100 Oxygen Delivery Fraction of Inspired Oxygen 07/23/24 14:21 07/23/24 14:21 07/23/24 17:22 Temperature Pulse Rate 74 85 Respiratory Rate Blood Pressure 126/38 L 105/33 L 160/58 H Pulse Oximetry 99 92 Oxygen Delivery Fraction of Inspired Oxygen 07/23/24 16:00 Temperature Pulse Rate 73 Respiratory Rate Blood Pressure Pulse Oximetry Oxygen Delivery Fraction of Inspired Oxygen Intake/Output Intake/Output: Intake & Output 07/20/24 07/21/24 07/22/24 07/23/24 23:59 23:59 23:59 23:59 Intake Total 1360 1940 1330 2470 Output Total 550 400 Balance 810 0008 310 2838 Meds/Results Medications: Active Medications Generic Name Dose Route Start Last Admin Trade Name Freq PRN Reason Stop Dose Admin Allopurinol 300 mg 07/11/24 09:00 07/23/24 08:21 Allopurinol 300 Mg Tablet PO 300 mg DAILY [facility]IS[facility] Administration Alprazolam 0.5 mg 07/10/24 22:47 07/22/24 20:52 Alprazolam (*Crx) 0.5 Mg Tablet PO 07/30/24 22:46 0.5 mg TID PRN Administration Anxiety Aspirin 81 mg 07/11/24 09:00 07/23/24 08:18 Aspirin 81 Mg Enteric Tablet PO 81 mg DAILY CL[facility]IS[facility] Administration Dextrose 12.5 gm 07/18/24 09:48 Dextrose 50% 25 Gm/50 Ml Syringe IV PUSH PRN PRN Hypoglycemia Protocol Docusate Sodium 100 mg 07/12/24 17:11 07/22/24 20:52 Docusate Sodium 100 Mg Capsule PO 100 mg Q12H PRN Administration Constipation Famotidine 20 mg 07/12/24 17:00 07/23/24 17:18 Famotidine 20 Mg Tablet PO 20 mg 1700 CLARISSA Administration Glucagon 1 mg 07/18/24 09:48 Glucagon For Inj 1 Mg Vial IM PRN PRN Hypoglycemia Protocol Glucose 15 gm 07/18/24 09:48 Glucose Oral Gel 15 Gm Of Glucse In 37.5 Gm Tube PO PRN PRN Hypoglycemia Protocol Dextrose 1,000 mls @ 100 mls/hr 07/18/24 09:48 Dextrose 5% 1,000 Ml IVPB PRN PRN Hypoglycemia Protocol Sodium Chloride 1,000 mls @ 100 mls/hr 07/22/24 15:40 07/23/24 17:15 Normal Saline Iv IV CONT 100 mls/hr .Q10H [facility] Administration Insulin Aspart 3 - 6 units 07/18/24 12:00 07/23/24 17:15 Insulin Aspart (*Bkc) 100 Units/Ml SUB-Q Not Given TIDWM [facility] Protocol Insulin Aspart 1 - 3 units 07/18/24 21:00 07/22/24 21:32 Insulin Aspart (*Bkc) 100 Units/Ml SUB-Q Not Given HS [facility] Protocol Metoprolol Tartrate 25 mg 07/18/24 21:00 07/22/24 20:52 Metoprolol Tartrate 25 Mg Tablet PO 25 mg Q24H [facility] Administration Midodrine 5 mg 07/24/24 09:00 Midodrine Hcl 2.5 Mg Tablet PO TID [facility] Nitroglycerin 0.4 mg 07/11/24 19:56 Nitroglycerin Sl 0.4 Mg Tablet SUBLINGUAL Q5MIN PRN Chest Pain Non-Formulary Medication 10 mg 07/22/24 09:00 Finerenone [Kerendia] PO 08/21/24 08:59 DAILY [facility] Ondansetron HCl 4 mg 07/21/24 11:56 07/22/24 16:25 Ondansetron Inj 4 Mg/2 Ml Vial IV PUSH 4 mg Q6H PRN Administration Nausea And Vomiting Pantoprazole Sodium 40 mg 07/11/24 09:00 07/23/24 08:18 Pantoprazole 40 Mg Tablet PO 40 mg DAILY [facility] Administration Pentoxifylline 400 mg 07/11/24 09:00 07/23/24 17:16 Pentoxifylline 400 Mg Tabcr PO Not Given TID [facility] Rosuvastatin Calcium 40 mg 07/11/24 09:00 07/23/24 08:18 Rosuvastatin 20 Mg Tablet PO 40 mg DAILY [facility] Administration Ticagrelor 60 mg 07/10/24 21:00 07/23/24 08:18 Ticagrelor 60 Mg Tablet PO 60 mg Q12HR [facility] Administration Radiology Results: ITS Impressions Head CT 07/10/24 17:22 IMPRESSION: No acute intracranial process. Chest X-Ray 07/10/24 17:51 IMPRESSION: No acute cardiopulmonary process. Chest CTA 07/10/24 19:38 IMPRESSION: No CT evidence of acute pulmonary embolus. No acute process detected in the chest. ADDENDUM: 07/10/24 1950 1.7 cm right thyroid nodule, consider nonemergent outpatient thyroid ultrasound for further evaluation. Renal Ultrasound 07/16/24 08:17 IMPRESSION: 1. Normal kidney sizes. No hydronephrosis. Carotid Doppler Study 07/17/24 09:13 Impression: Mildly elevated velocities in the right internal carotid artery suggest moderate (50-69%) stenosis. Retrograde flow in the right vertebral artery. Consider subclavian steal syndrome. Note: The methodology used is an indirect measurement validated against a direct method (such as the NASCET criteria) that compares diameters at the stenosis to the distal ICA. Labs Labs: Laboratory Results - last 24 hr 07/22/24 07/23/24 07/23/24 21:29 05:05 08:08 WBC 7.1 RBC 3.17 L Hgb 10.0 L Hct 29.3 L MCV 92.4 MCH 31.5 MCHC 34.1 RDW 13.6 Plt Count 205 MPV 10.5 H Sodium 136 L Potassium 3.8 Chloride 105 Carbon Dioxide 30 Anion Gap 1 L BUN 27 H Creatinine 2.20 H Estim Creat Clear Calc 24 Estimated GFR 29 L Glucose 115 H POC Capillary Glucose 145 H 114 H Calcium 9.8 07/23/24 07/23/24 07/23/24 09:57 11:50 16:51 WBC RBC Hgb Hct MCV MCH MCHC RDW Plt Count MPV Sodium Potassium Chloride Carbon Dioxide Anion Gap BUN Creatinine Estim Creat Clear Calc Estimated GFR Glucose POC Capillary Glucose 198 H 160 H 107 H Calcium
[2024-07-23] MEDS: ALPRAZolam (*CRX) 0.5 MG TABLET PO (20:47)
[2024-07-23] MEDS: DOCUSATE SODIUM 100 MG CAPSULE PO (20:48)
[2024-07-23] MEDS: METOPROLOL TARTRATE 25 MG TABLET PO (20:48)
[2024-07-24] VITALS (10 sets, daily range): BP systolic 127–166; BP diastolic 43–56; PULSE 68–100; RESP 14–18; TEMP 36.5–36.7; O2SAT 97–100
[2024-07-24 00:17] LABS: Glucose Point of Care 128 mg/dl (65-105)
[2024-07-24] MEDS: SODIUM CHLORIDE 0.9% IV 1,000 ML 100 ML IV CONT (03:41)
[2024-07-24 04:17] LABS: Hematocrit 27.9 % (42.0-52.0); Hemoglobin 9.4 g/dL (14.0-18.0); Mean Corpuscular HGB Conc 33.7 g/dl (32-36); Mean Corpuscular Hemoglobin 31.4 pg (26-34); Mean Corpuscular Volume 93.3 fl (80-100); Platelet Count Result 194 k/mm3 (150-375); Red Blood Count 2.99 M/mm3 (4.6-6.20); Red Cell Distribution Width 13.9 % (11.5-14.5)
[2024-07-24 04:54] LABS: Chloride 108 mmol/L (98-107); Potassium 3.5 mmol/L (3.4-5.0); Sodium 139 mmol/L (137-145)
[2024-07-24 04:55] LABS: Anion Gap 3 mmol/L (4-12); Blood Urea Nitrogen 24 mg/dL (9-20); Calcium 9.6 mg/dL (8.4-10.2); Carbon Dioxide 28 mmol/L (22-30); Estimated CRCL calculation 28 ml/min; Estimated Glomerular Filt Rate 35; Glucose 126 mg/dL (65-110)
[2024-07-24 04:56] LABS: Alanine Aminotransferase 21 U/L (6-50); Aspartate Amino Transferase 35 U/L (17-59); Bilirubin,Total 0.5 mg/dL (0.2-1.3); Total Protein 6.3 g/dL (6.3-8.2)
[2024-07-24 04:57] LABS: Albumin Level 3.2 g/dL (3.5-5.1); Alkaline Phosphatase 97 U/L (38-126)
--- NOTE | 2024-07-24 07:24 | P.PNIM_ITS ---
Subjective Date/time seen: 07/24/24 07:24 Objective Data Vital Signs Vital Signs: Vital Signs - 24 hr 07/23/24 08:15 07/23/24 08:00 07/23/24 12:00 Temperature Pulse Rate 77 86 Respiratory Rate Blood Pressure Pulse Oximetry Oxygen Delivery Room Air Fraction of Inspired Oxygen 07/23/24 14:20 07/23/24 14:00 07/23/24 14:21 Temperature 98.1 F 98.1 F Pulse Rate 53 L 60 74 Respiratory Rate 16 Blood Pressure 116/37 L 138/50 L 126/38 L Pulse Oximetry 99 100 99 Oxygen Delivery Fraction of Inspired Oxygen 07/23/24 14:21 07/23/24 17:22 07/23/24 16:00 Temperature Pulse Rate 85 73 Respiratory Rate Blood Pressure 105/33 L 160/58 H Pulse Oximetry 92 Oxygen Delivery Fraction of Inspired Oxygen 07/23/24 20:48 07/23/24 20:00 07/23/24 20:00 Temperature Pulse Rate 75 75 66 Respiratory Rate 16 Blood Pressure Pulse Oximetry 92 Oxygen Delivery Room Air Fraction of Inspired Oxygen 07/24/24 00:00 07/24/24 04:00 07/23/24 21:34 Temperature 97.9 F Pulse Rate 79 68 77 Respiratory Rate 16 Blood Pressure 155/50 H Pulse Oximetry 98 Oxygen Delivery Fraction of Inspired Oxygen 07/23/24 21:34 07/23/24 21:37 07/23/24 21:40 Temperature Pulse Rate 77 69 73 Respiratory Rate Blood Pressure 155/50 H 149/56 H 140/45 L Pulse Oximetry Oxygen Delivery Fraction of Inspired Oxygen 07/24/24 07:07 Temperature 97.7 F Pulse Rate 79 Respiratory Rate 14 Blood Pressure 140/53 L Pulse Oximetry 97 Oxygen Delivery Fraction of Inspired Oxygen Intake/Output Intake/Output: Intake & Output 07/21/24 07/22/24 07/23/24 07/24/24 23:59 23:59 23:59 23:59 Intake Total 1940 1330 2590 1000 Output Total 400 800 Balance 4623 366 3764 200 Meds/Results Medications: Active Medications Generic Name Dose Route Start Last Admin Trade Name Freq PRN Reason Stop Dose Admin Allopurinol 300 mg 07/11/24 09:00 07/23/24 08:21 Allopurinol 300 Mg Tablet PO 300 mg DAILY CLARISSA Administration Alprazolam 0.5 mg 07/10/24 22:47 07/23/24 20:47 Alprazolam (*Crx) 0.5 Mg Tablet PO 07/30/24 22:46 0.5 mg TID PRN Administration Anxiety Aspirin 81 mg 07/11/24 09:00 07/23/24 08:18 Aspirin 81 Mg Enteric Tablet PO 81 mg DAILY CLARISSA Administration Dextrose 12.5 gm 07/18/24 09:48 Dextrose 50% 25 Gm/50 Ml Syringe IV PUSH PRN PRN Hypoglycemia Protocol Docusate Sodium 100 mg 07/12/24 17:11 07/23/24 20:48 Docusate Sodium 100 Mg Capsule PO 100 mg Q12H PRN Administration Constipation Famotidine 20 mg 07/12/24 17:00 07/23/24 17:18 Famotidine 20 Mg Tablet PO 20 mg 1700 CLARISSA Administration Glucagon 1 mg 07/18/24 09:48 Glucagon For Inj 1 Mg Vial IM PRN PRN Hypoglycemia Protocol Glucose 15 gm 07/18/24 09:48 Glucose Oral Gel 15 Gm Of Glucse In 37.5 Gm Tube PO PRN PRN Hypoglycemia Protocol Dextrose 1,000 mls @ 100 mls/hr 07/18/24 09:48 Dextrose 5% 1,000 Ml IVPB PRN PRN Hypoglycemia Protocol Insulin Aspart 3 - 6 units 07/18/24 12:00 07/23/24 17:15 Insulin Aspart (*Bkc) 100 Units/Ml SUB-Q Not Given TIDWM [facility] Protocol Insulin Aspart 1 - 3 units 07/18/24 21:00 07/23/24 21:00 Insulin Aspart (*Bkc) 100 Units/Ml SUB-Q Not Given HS [facility] Protocol Metoprolol Tartrate 25 mg 07/18/24 21:00 07/23/24 20:48 Metoprolol Tartrate 25 Mg Tablet PO 25 mg Q24H CLARISSA Administration Midodrine 5 mg 07/24/24 09:00 Midodrine Hcl 2.5 Mg Tablet PO TID CLARISSA Nitroglycerin 0.4 mg 07/11/24 19:56 Nitroglycerin Sl 0.4 Mg Tablet SUBLINGUAL Q5MIN PRN Chest Pain Non-Formulary Medication 10 mg 07/22/24 09:00 Finerenone [Kerendia] PO 08/21/24 08:59 DAILY [facility] Ondansetron HCl 4 mg 07/21/24 11:56 07/22/24 16:25 Ondansetron Inj 4 Mg/2 Ml Vial IV PUSH 4 mg Q6H PRN Administration Nausea And Vomiting Pantoprazole Sodium 40 mg 07/11/24 09:00 07/23/24 08:18 Pantoprazole 40 Mg Tablet PO 40 mg DAILY CLARISSA Administration Pentoxifylline 400 mg 07/11/24 09:00 07/23/24 17:16 Pentoxifylline 400 Mg Tabcr PO Not Given TID CLARISSA Rosuvastatin Calcium 40 mg 07/11/24 09:00 07/23/24 08:18 Rosuvastatin 20 Mg Tablet PO 40 mg DAILY CLARISSA Administration Ticagrelor 60 mg 07/10/24 21:00 07/23/24 20:48 Ticagrelor 60 Mg Tablet PO 60 mg Q12HR CLARISSA Administration Radiology Results: ITS Impressions Head CT 07/10/24 17:22 IMPRESSION: No acute intracranial process. Chest X-Ray 07/10/24 17:51 IMPRESSION: No acute cardiopulmonary process. Chest CTA 07/10/24 19:38 IMPRESSION: No CT evidence of acute pulmonary embolus. No acute process detected in the chest. ADDENDUM: 07/10/24 1950 1.7 cm right thyroid nodule, consider nonemergent outpatient thyroid ultrasound for further evaluation. Renal Ultrasound 07/16/24 08:17 IMPRESSION: 1. Normal kidney sizes. No hydronephrosis. Carotid Doppler Study 07/17/24 09:13 Impression: Mildly elevated velocities in the right internal carotid artery suggest moderate (50-69%) stenosis. Retrograde flow in the right vertebral artery. Consider subclavian steal syndrome. Note: The methodology used is an indirect measurement validated against a direct me thod (such as the NASCET criteria) that compares diameters at the stenosis to the distal ICA. Labs Labs: Laboratory Results - last 24 hr 07/23/24 07/23/24 07/23/24 08:08 09:57 11:50 WBC RBC Hgb Hct MCV MCH MCHC RDW Plt Count MPV Sodium Potassium Chloride Carbon Dioxide Anion Gap BUN Creatinine Estim Creat Clear Calc Estimated GFR Glucose POC Capillary Glucose 114 H 198 H 160 H Calcium Total Bilirubin AST ALT Alkaline Phosphatase Total Protein Albumin 07/23/24 07/24/24 07/24/24 16:51 00:11 04:10 WBC 7.0 RBC 2.99 L Hgb 9.4 L Hct 27.9 L MCV 93.3 MCH 31.4 MCHC 33.7 RDW 13.9 Plt Count 194 MPV 10.0 Sodium 139 Potassium 3.5 Chloride 108 H Carbon Dioxide 28 Anion Gap 3 L BUN 24 H Creatinine 1.90 H Estim Creat Clear Calc 28 Estimated GFR 35 L Glucose 126 H POC Capillary Glucose 107 H 128 H Calcium 9.6 Total Bilirubin 0.5 AST 35 ALT 21 Alkaline Phosphatase 97 Total Protein 6.3 Albumin 3.2 L
[2024-07-24] MEDS: allopurinoL 300 MG TABLET PO (08:36)
[2024-07-24] MEDS: TICAGRELOR 60 MG TABLET PO (08:37)
[2024-07-24] MEDS: PANTOPRAZOLE 40 MG TABLET PO (08:37)
[2024-07-24] MEDS: ASPIRIN 81 MG ENTERIC TABLET PO (08:38)
[2024-07-24] MEDS: MIDODRINE HCL 2.5 MG TABLET 5 MG PO (08:38)
[2024-07-24] MEDS: ROSUVASTATIN 20 MG TABLET 40 MG PO (08:38)
[2024-07-24 08:41] LABS: Glucose Point of Care 80 mg/dl (65-105)
[2024-07-24 11:49] LABS: Glucose Point of Care 151 mg/dl (65-105)
--- NOTE | 2024-07-24 13:44 | P.DS_ITS ---
DS: Admitting Diagnosis Discharge Date 07/24/2024 Admitting Diagnosis Dizziness DS: Discharge Diagnosis Discharge Diagnosis (1) Orthostatic hypotension: Code(s): I95.1 - Orthostatic hypotension Status: Acute Assessment and Plan: * Cardiology and nephrology consulted and following * Started midodrine 5 mg p.o. t.i.d. * d/c midodrine 10 mg t.i.d.- bid now as systolic BP was very high * Continue abdominal binder and Mt hose * Continue checking orthostatic blood pressures Q shift * Change positions slowly * Neurology consulted for further assistance of orthostatic hypotension * Cortisol ordered * Will check thyroid function- WNL * Consider fludrocortisone if necessary. * Stop nortriptyline and start pyridostigmine 30 mg TID per Neurology recommendation * pyridostigmine was causing too uh GI upset- so stopped * Monitor for any bradycardias * Patient is still symptomatic overnight with orthostatic blood pressures and today was still positive orthostatics but feeling less symptomatic. 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 Carotid study: c/o r/o subclavian-vertebral artery steal syndrome. - main etiology for it is atherosclerosis. Pt is on high intensity statin already- 40 mg of rosuvastatin secondary prevention measures: BP control, BS control, life style changes -following with vascular already- has a f/u radha on [employer] 07/22- called [facility] and discussed with Dr Bradford, vascular surgeon- he doesn't think that his history or vascular stenosis and endarterectomy is the reason for his orthostatics. (2) JOEY (acute kidney injury): Code(s): N17.9 - Acute kidney failure, unspecified Status: Acute Assessment and Plan: * Creatinine 2.00 * Baseline 1.3 * S/P contrast exposure with CTA chest and cardiac catheterization. * Nephrology following * Avoid nephrotoxins * Renally adjust medications as appropriate * 07/22- somewhat better, will add gentle IV hydration as BUN still high (3) Chronic kidney disease, stage 3a: Code(s): N18.31 - Chronic kidney disease, stage 3a Status: Chronic Assessment and Plan: See above (4) Exertional dyspnea: Code(s): R06.09 - Other forms of dyspnea Status: Resolved Assessment and Plan: * Resolved * Denies symptoms currently. * Good O2 sats > 90 % on RA. * CXR negative for acute. * CTA chest negative for PE or acute process. * Continue to monitor for now. (5) CAD (coronary artery disease): Qualifiers: Associated angina: without angina Coronary Disease-Associated Artery/Lesion type: [place] artery [place] vs. transplanted heart: [place] heart Qualified Code(s): I25.10 - Atherosclerotic heart disease of [place] coronary artery without angina pectoris Code(s): I25.10 - Atherosclerotic heart disease of [place] coronary artery without angina pectoris Status: Chronic Assessment and Plan: * s/p LHC with no significant coronary occlusion observed. * Continue ASA, Brilinta 60mg b.i.d. (per [facility]) and statin * Cardiology following (6) GERD (gastroesophageal reflux disease): Code(s): K21.9 - Gastro-esophageal reflux disease without esophagitis Status: Chronic Assessment and Plan: * Continue Pantoprazole 40 mg PO daily. (7) Type 2 diabetes mellitus without complications: Qualifiers: Diabetes mellitus detention insulin use: without middle or intermediate school principal use Qualified Code(s): E11.9 - Type 2 diabetes mellitus without complications Code(s): E11.9 - Type 2 diabetes mellitus without complications Status: Chronic Assessment and Plan: * Blood sugars ranging 127-149 * Hgb A1C 7.9 on 08/13/22 * Will recheck Hgb A1C * Accu checks AC/HS * Moderate dose SSI ordered * hypoglycemic protocol in place * Diabetic diet ordered (8) Thyroid nodule: Code(s): E04.1 - Nontoxic single thyroid nodule Status: Acute Assessment and Plan: accidental finding on CTA for 1.7 cm right thyroid nodule consider nonemergent outpatient thyroid ultrasound for further evaluation. DS: Summary Hospital Course Hospital Course: This is a 73-year-old male with past medical history significant for coronary artery disease, chronic kidney disease, hypertension, diabetes, diabetic peripheral neuropathy, gout. Patient presents to the emergency room due to lightheadedness for the last 2-3 weeks, shortness of breath with exertion, denies PND, denies orthopnea, no leg swelling, no pedal swelling, no ankle swelling, no chest pain, no palpitations, no nausea,no vomiting ,no diarrhea. preliminary workup was significant for a creatinine of 2.2, BUN 41. Patient was evaluated in the emergency room was ruled out for pulmonary embolism with a negative CT angiogram of the chest however once the patient stood up became dizzy he became tachycardic and hypoxic. Patient has been placed in observation for further evaluation management and treatment. During hospitalization patient was evaluated by the land checker and and and had some episodes of ventricular tachycardia versus aberrancy conducted rhythm. Cardiology advised maintaining adequate hydration, Mt hose and caution when transitioning from sitting or lying to standing, also use abdominal binder if still having symptoms with the above intervention. Patient underwent cardiac catheterization on 07/15 and no significant finding. Please refer to the cardiac catheterization report done by Dr. Palmer on 07/15. Patient Coreg was switched to metoprolol by the land checker. Patient was seen by the tank farm attendant for CKD his baseline runs around 1.3-1.8 his decline in the renal function due to the possible cardiac catheterization, dehydration, hypertension, diabetes, vascular disease and age-related changes. Patient is to follow-up with the tank farm attendant in 1-2 weeks upon discharge. Patient main event in the hospital was orthostatic hypertension. There was multiple changes in the medications were made during the hospitalization. I assumed the care on . Before that patient was on midodrine 10 mg t.i.d. and then it was changed to b.i.d.. Patient was also followed by neurologist who advised to hold nortriptyline and then to add pyridostigmine 3 times a day. Patient was not able to tolerate the prostatic mine and it was stopped. After seemed care on 07/23 a decrease the dose of midodrine 10 b.i.d. to 5 mg t.i.d.. Today on 07/24 his orthostatic vitals per on sitting 127/56 and upon standing 151/54. So we advised the patient to continue to check his blood pressure at home while sitting and then 3 minutes later upon standing. Also advised to take midodrine only if necessary but follow lifestyle modification including standing up very slowly, fall precaution, using Mt hose and abdominal binder. During discharge we are holding his home medications Chlorthalidone 25 mg PO QD,and Telmisartan 80 mg PO QD for 2 weeks. Advised to check his BP and take his BP log to his PCP and reconcile all his home medications with PCP and decide whether to continue or not.Sales Contract Administrator discontinued Carvedilol 12.5 PO BID and added Metoprolol Tartrate 25 mg PO BID . In the event of hypertension please start taking Telmisartan 80 once a day. Patient had a incidental finding subclavian steal syndrome in Carotid US and advised to follow up with his vascular surgeon Status at Discharge Cognitive/behavioral status at discharge: Stable Time Spent with Patient Time attestation: Total time spent providing and/or coordinating discharge services: 45 minute Exam Narrative: General: In no acute distress, well nourished Cardiac: Normal S1 and S2. No murmur, gallops or friction rubs, peripheral pulses intact. Respiratory: Lungs clear to auscultation, no adventitious lung sounds, currently on room air Gastrointestinal: soft, non-distended, non-tender, normoactive bowel sounds. : voiding without difficulty. Neuro: Alert and oriented x4 Const: General: cooperative, comfortable, no acute distress, well developed, alert, awake, ill appearing chronically and average body habitus Nutritional Appearance: average body habitus Orientation/consciousness: patient oriented x3 HENMT: Head: normal to inspection, normocephalic and atraumatic Ears: hearing grossly normal bilaterally Face/Nose/Sinus: normal facial exam Face and sinus: normal facial exam Eyes: General: appearance normal, both eyes and all related structures Pupils: Equal, round and reactive pupils present EOM: EOMs intact bilaterally Neck: Neck: full ROM, no lymphadenopathy and no JVD Thyroid: thyroid normal Lymphatic: no lymphadenopathy noted Resp: Effort & Inspection: normal respiratory effort and able to speak in complete sentences Auscultation: clear to auscultation bilaterally Cardio: Jugular venous distension: no JVD Rate: regular rate and tachycardic Rhythm: regular rhythm Heart sounds: S1 normal heart sound present and S2 normal heart sound present GI: Inspection: obesity Auscultation: normal bowel sounds : General: Yes deferred Skin: General skin exam: no rashes or lesions noted Rashes: no rashes Wounds: no wounds Neuro: General: patient oriented x3 and CN's II-XI intact bilaterally Cranial nerves: Yes CN's II-XII intact bilaterally and Yes Equal, round and reactive pupils present Cognition (Neuro): normal cognition Speech: normal speech Gait exam (Neuro): Normal gait present Motor exam (neuro): 5/5 motor strength present throughout Extrem: General: normal to inspection, full ROM, no joint enlargement and no pedal edema Psych: Mental Status: mental status grossly normal Affect: normal affect DS: Data Data Completed and Pending Labs on day of discharge: Labs from last 24 hours 07/24/24 07/24/24 07/24/24 11:47 08:39 04:10 WBC 7.0 RBC 2.99 L Hgb 9.4 L Hct 27.9 L MCV 93.3 MCH 31.4 MCHC 33.7 RDW 13.9 Plt Count 194 MPV 10.0 Sodium 139 Potassium 3.5 Chloride 108 H Carbon Dioxide 28 Anion Gap 3 L BUN 24 H Creatinine 1.90 H Estim Creat Clear Calc 28 Estimated GFR 35 L Glucose 126 H POC Capillary Glucose 151 H 80 Calcium 9.6 Total Bilirubin 0.5 AST 35 ALT 21 Alkaline Phosphatase 97 Total Protein 6.3 Albumin 3.2 L 07/24/24 07/23/24 00:11 16:51 WBC RBC Hgb Hct MCV MCH MCHC RDW Plt Count MPV Sodium Potassium Chloride Carbon Dioxide Anion Gap BUN Creatinine Estim Creat Clear Calc Estimated GFR Glucose POC Capillary Glucose 128 H 107 H Calcium Total Bilirubin AST ALT Alkaline Phosphatase Total Protein Albumin Discharge Plan Discharge Attending physician on discharge: Kal Calle Consulting providers: Sanchez Morgan; Huong Mendoza; Nils Marshall; Taras Euceda Discharging Clinician: Kal Calle Anticipated Discharge Date/Time: 07/24/24 13:27 Patient Disposition: Home Health Service Activity: as tolerated Diet: heart healthy and diabetic Discharge Instructions: Per Care Coordination Patient has been accepted to have [facility] for RN, PT, OT [phone] [facility] will call to arrange a time to see you in your house after discharge. [facility] [address] [place] [address] DISCHARGE INSTRUCTIONS - POST RADIAL CATH Activity 1. No driving for 24 hours. 2. No lifting more than 5 lb with affected arm for 1 week. 3. May shower ( tomorrow) but no excessive soaking of affected hand/wrist (such as washing dishes), swimming pool or hot tub for 5 days. Wound Care 1. May remove arm board in the morning. 2. May remove gauze dressing in the morning and put Band-Aid over affected radial site. Keep site covered for 3 days. 3. Observe for redness, drainage, swelling or bleeding. Medications DO NOT STOP YOUR MEDICATIONS ONLY YOUR WELDER SHIELDED METAL ARC CAN STOP THE FOLLOWING MEDICATIONS - PLEASE CALL THE OFFICE WITH QUESTIONS. *Aspirin *Ticagrelor (Brilinta) *Rosuvastatin *Metoprolol tartrate or succinate Important Reminders 1. Keep your stent card in your wallet at all times 2. Follow a heart healthy diet paying extra attention to cholesterol and fats. 3. Stay hydrated. 4. If you have chest pain unrelieved by rest or nitroglycerin (if prescribed) call 911 immediately. 5. If you miss one dose of Brilinta (if prescribed) take a tablet at the next time due. If you miss 2 doses take a tablet when you remember and resume at the next time due. *For any other questions please call the office at [phone]. Office hours are 8AM 4:30PM Thursday through Thursday. Please do orthostatic vitals as needed. Patient was instructed to take Midodrine 2.5 mg PRN if SBP (upper number) falls more than 20 and diastolic(lower number) falls more than 10. Advised to follow the life style modifications and take Midodrine only if necessary. During discharge we are holding his home medications Chlorthalidone 25 mg PO QD,and Telmisartan 80 mg PO QD for 2 weeks. Advised to check his BP and take his BP log to his PCP and reconcile all his home medications with PCP and decide whether to continue or not.Sales Contract Administrator discontinued Carvedilol 12.5 PO BID and added Metoprolol Tartrate 25 mg PO BID . In the event of hypertension please start taking Telmisartan 80 once a day. Patient had a incidental finding subclavian steal syndrome in Carotid US and advised to follow up with his vascular surgeon Take BP log to PCP in a week or 2 upon discharge. Patient Instructions: Midodrine (By mouth), Ticagrelor (By mouth), Pain Management (DC), Hypotension (DC), Heart Catheterization (DC), After Radial Heart Catheterization (GEN) Stand Alone Forms: General Discharge Information, Work/School Release IP Follow-up/Referrals: Sanchez Morgan MD [Physician] - 1 Week (During discharge we are holding his home medications Chlorthalidone 25 mg PO QD,and Telmisartan 80 mg PO QD for 2 weeks. Advised to check his BP and take his BP log to his PCP and reconcile all his home medications with PCP and decide whether to continue or not. Sales Contract Administrator discontinued Carvedilol 12.5 PO BID and added Metoprolol Tartrate 25 mg PO BID . In the event of hypertension please start taking Telmisartan 80 once a day.) Huong Mendoza MD [Physician] - 1 Week (During discharge we are holding his home medications Chlorthalidone 25 mg PO QD,and Telmisartan 80 mg PO QD for 2 weeks. Advised to check his BP and take his BP log to his PCP and reconcile all his home medications with PCP and decide whether to continue or not.Sales Contract Administrator discontinued Carvedilol 12.5 PO BID and added Metoprolol Tartrate 25 mg PO BID . In the event of hypertension please start taking Telmisartan 80 once a day.) Fuentes Orellana MD [Primary Care Provider] - 1 Week (Please do orthostatic vitals. Patient was instructed to take Midodrine 2.5 mg PRN if SBP falls more than 20 and diastolic falls more than 10. Advised to follow the life style modifications and take Midodrine only if necessary. During discharge we are holding his home medications Chlorthalidone 25 mg PO QD,and Telmisartan 80 mg PO QD for 2 weeks. Advised to check his BP and take his BP log to his PCP and reconcile all his home medications with PCP and decide whether to continue or not. Sales Contract Administrator discontinued Carvedilol 12.5 PO BID and added Metoprolol Tartrate 25 mg PO BID . In the event of hypertension please start taking Telmisartan 80 once a day.) Discharge Medications: New metoprolol tartrate 25 mg Tablet 25 mg PO Q24H Qty: 30 0RF midodrine 2.5 mg tablet 2.5 mg PO BID Qty: 30 0RF Rx Instructions: do not give last dose of day after 6PM or within 4 hrs of bedtime Take only if SBP falls below 20 and DBP falls below 10 after standing Continued nitroglycerin 0.3 mg tablet, sublingual 0.3 mg sublingual PRN PRN (Reason: Chest Pain) Brilinta 60 mg tablet 60 mg PO BID rosuvastatin 40 mg tablet 40 mg PO DAILY Kerendia 10 mg tablet 10 mg PO DAILY Qty: 30 7RF aspirin [Adult Aspirin Regimen] 81 mg tablet,delayed release (DR/EC) 81 mg PO DAILY pentoxifylline 400 mg tablet extended release 400 mg PO TID calcium carbonate [Tums] 200 mg calcium (500 mg) Tablet,Chewable 200 mg PO TID PRN (Reason: heart burn) (DME) Accu-Chek Aaliyah Plus test strp Strip See Rx Instructions .Route Qty: 400 1RF Rx Instructions: Check blood sugar 4 times daily alprazolam 0.5 mg tablet 0.5 mg PO TID PRN (Reason: Anxiety) Qty: 20 0RF nortriptyline 25 mg capsule 25 mg PO QHS Qty: 90 1RF allopurinol 300 mg tablet 300 mg PO DAILY Qty: 90 1RF pantoprazole 40 mg tablet,delayed release (DR/EC) 40 mg PO DAILY Qty: 90 1RF Held chlorthalidone 25 mg tablet 25 mg PO DAILY Hold Instructions: Resume on 08/07/24. Resume on 08/07/24. During discharge we are holding his home medications Chlorthalidone 25 mg PO QD,Carvidelol 12.5 PO BID, Telmisartan 80 mg PO QD for 2 weeks. Advised to check his BP and take his BP log to his PCP and reconcile all his home medications with PCP and decide whether to continue or not. telmisartan 80 mg tablet 80 mg PO DAILY Hold Instructions: Resume on 08/07/24. During discharge we are holding his home medications Chlorthalidone 25 mg PO QD,Carvidelol 12.5 PO BID, Telmisartan 80 mg PO QD for 2 weeks. Advised to check his BP and take his BP log to his PCP and reconcile all his home medications with PCP and decide whether to continue or not. amlodipine 2.5 mg Tablet 2.5 mg PO DAILY Hold Instructions: Resume on 08/07/24. Resume on 08/07/24. During discharge we are holding his home medications Chlorthalidone 25 mg PO QD,Carvidelol 12.5 PO BID, Telmisartan 80 mg PO QD for 2 weeks. Advised to check his BP and take his BP log to his PCP and reconcile all his home medications with PCP and decide whether to continue or not. Discontinued famotidine 20 mg tablet 20 mg PO DAILY carvedilol [Coreg] 12.5 mg Tablet 12.5 mg PO BID Hold Instructions: Resume on 08/07/24. Resume on 08/07/24. During discharge we are holding his home medications Chlorthalidone 25 mg PO QD,Carvidelol 12.5 PO BID, Telmisartan 80 mg PO QD for 2 weeks. Advised to check his BP and take his BP log to his PCP and reconcile all his home medications with PCP and decide whether to continue or not. Rx Instructions: must administer with a meal/food Date of admission: 07/11/24 16:29 Primary Care Provider: Fuentes Orellana Admitting Provider: Alpesh Alan V. Attending physician on admission: Alpesh Alan V. Condition: Stable
[2024-07-24 20:18] LABS: Immunofixation, Serum Normal pattern.
== END 2024-07-24 15:05 | disposition home health service (06) | DRG 287 ==
LOC: ANHED 18:56 → ANH3MEDSUR 20:30 → ANHIMU 07-15 14:28 → ANH2MED 07-18 18:00
PROVIDERS: Emergency Medicine; Internal Medicine; Internal Medicine Nephrology; Nurse Practitioner; Nurse Practitioner Acute Care; Nurse Practitioner Family; Admitting Provider Internal Medicine; Emergency Provider Physician Assistant; PCP Family Medicine; Visit Provider General Practice
PROC: 4A023N7 Measurement of Cardiac Sampling and Pressure, Left Heart, Percutaneous Approach (ICD-10-PCS; CPT 93452; principal; 2024-07-15 09:00)
DX: I25.10 Atherosclerotic heart disease of native coronary artery without angina pectoris (principal); N17.9 Acute kidney failure, unspecified; I95.1 Orthostatic hypotension; I65.22 Occlusion and stenosis of left carotid artery; I43 Cardiomyopathy in diseases classified elsewhere; I13.10 Hypertensive heart and chronic kidney disease without heart failure, with stage 1 through stage 4 chronic kidney disease, or unspecified chronic kidney disease; E11.42 Type 2 diabetes mellitus with diabetic polyneuropathy; E11.51 Type 2 diabetes mellitus with diabetic peripheral angiopathy without gangrene; E11.22 Type 2 diabetes mellitus with diabetic chronic kidney disease; E83.42 Hypomagnesemia; E04.1 Nontoxic single thyroid nodule; E78.5 Hyperlipidemia, unspecified; G89.29 Other chronic pain; K21.9 Gastro-esophageal reflux disease without esophagitis; M48.062 Spinal stenosis, lumbar region with neurogenic claudication; M10.9 Gout, unspecified; N18.32 Chronic kidney disease, stage 3b; Z85.46 Personal history of malignant neoplasm of prostate; Z86.718 Personal history of other venous thrombosis and embolism; Z95.5 Presence of coronary angioplasty implant and graft; Z90.79 Acquired absence of other genital organ(s); Z87.891 Personal history of nicotine dependence; Z79.82 Long term (current) use of aspirin
CPT/HCPCS: 36415; 70450; 71046; 71275; 76775; 80048; 80053; 81001; 82533; 82550; 82570; 82948; 83036; 83735; 83883; 84155; 84156; 84165; 84300; 84439; 84443; 84480; 84484; 84540; 84550; 85025; 85027; 85999; 86334; 86335; 93005; 93306; 93458; 93880; 96360; 96374; 97116; 97161; 97165; 97530; 97535; 99285; A9270; C1769; C1887; C1894; G0378; J0834; J1644; J1815; J2250; J2305; J2405; J3010; J3475; J7030; J7040; J7050; Q9967

== ENCOUNTER 2024-08-03 14:34 | Outpatient (NON) | payer MEDICARE, SELFPAY ==
[2024-08-03 15:42] LABS: Anion Gap 5 mmol/L (4-12); Blood Urea Nitrogen 23 mg/dL (9-20); Calcium 9.5 mg/dL (8.4-10.2); Carbon Dioxide 27 mmol/L (22-30); Chloride 107 mmol/L (98-107); Estimated Glomerular Filt Rate 54; Glucose 186 mg/dL (65-110); Potassium 3.8 mmol/L (3.4-5.0); Sodium 139 mmol/L (137-145)
== END 2024-08-03 14:35 | disposition home or self-care (01) ==
PROVIDERS: PCP Family Medicine; Visit Provider Family Medicine
DX: N17.9 Acute kidney failure, unspecified (principal)
CPT/HCPCS: 80048

== ENCOUNTER 2024-08-11 10:39 | Outpatient (CLI) | payer MEDICARE, SELFPAY ==
--- NOTE | ~2024-08-11 | US_ITS ---
EXAMINATION: US thyroid DATE: 08/11/2024 10:59 INDICATION: Nontoxic single thyroid nodule. TECHNIQUE: Multiple ultrasound images of the thyroid were obtained. COMPARISON: None. FINDINGS: The right thyroid lobe measures 5.8 x 2.1 x 2.2 cm. The left thyroid lobe measures 5.4 x 1.7 x 2.0 c m. In the left thyroid lobe, there is a 14 mm solid, hypoechoic, wider than tall nodule with smooth margin without echogenic foci (TI-RADS TR4). In the left thyroid lobe, there is 11 mm solid, hypoecho ic, wider than tall nodule with smooth margin without echogenic foci (TR4). In the left thyroid lobe, there is an 8 mm solid, hypoechoic, wider than tall nodule with smooth margin without echogenic foci (TR4). In the right thyroid lobe, there are multiple subcentimeter nodules. IMPRESSION: 1. Small thyroid nodules. Consider thyroid ultrasound in one year. Reviewed, dictated and finalized at location A. NSING COORDINATOR
== END 2024-08-11 10:40 | disposition home or self-care (01) ==
LOC: MICIMG 10:41
PROVIDERS: PCP Family Medicine; Visit Provider Nurse Practitioner Family
DX: E04.2 Nontoxic multinodular goiter (principal)
CPT/HCPCS: 76536

== ENCOUNTER 2024-08-15 14:44 | Outpatient (CLI) | payer MEDICARE, SELFPAY ==
[2024-08-15 15:16] LABS: Hematocrit 33.4 % (42.0-52.0); Hemoglobin 10.9 g/dL (14.0-18.0); Mean Corpuscular HGB Conc 32.6 g/dl (32-36); Mean Corpuscular Hemoglobin 31.1 pg (26-34); Mean Corpuscular Volume 95.4 fl (80-100); Mean Platelet Volume 10.8 fl (7.4-10.4); Platelet Count Result 224 k/mm3 (150-375); Red Cell Distribution Width 13.8 % (11.5-14.5)
[2024-08-15 15:29] LABS: Anion Gap 4 mmol/L (4-12); Blood Urea Nitrogen 27 mg/dL (9-20); Calcium 10.3 mg/dL (8.4-10.2); Carbon Dioxide 28 mmol/L (22-30); Chloride 106 mmol/L (98-107); Estimated Glomerular Filt Rate 54; Glucose 122 mg/dL (65-110); Phosphorus 3.3 mg/dL (2.5-4.5); Potassium 4.1 mmol/L (3.4-5.0); Sodium 138 mmol/L (137-145)
[2024-08-15 15:37] LABS: Creatinine Urine 83.4 mg/dL; Total Protein Urine Random 12 mg/dL; Ur Ttl Prot Creatinine Ratio 0.14 mg/mg (0-0.20)
[2024-08-15 17:15] LABS: Parathyroid Intact 68.7 pg/mL (14.5-75.2)
== END 2024-08-15 14:45 | disposition home or self-care (01) ==
LOC: ANHLAB 14:45
PROVIDERS: PCP Family Medicine; Visit Provider Internal Medicine Nephrology
DX: N18.32 Chronic kidney disease, stage 3b (principal); E11.22 Type 2 diabetes mellitus with diabetic chronic kidney disease
CPT/HCPCS: 36415; 80069; 82570; 83970; 84156; 85027

== ENCOUNTER 2024-08-18 08:36 | Outpatient (CLI) | payer MEDICARE, SELFPAY ==
--- NOTE | ~2024-08-18 | DEXA_ITS ---
Bone Density Report Name: RIVERA MCFARLANE Age: 73 Sex: Male Ethnicity: White Date of : 1950 Indication: screening for osteoporosis; cancer; end stage renal disease; Referring Provider: GLEY ALBERT Study: Bone densitometry was performed. Exam Date: August 18, 2024 Accession number: [id number] Bone Density: Region BMD T-score Z-score Classification AP Spine(L1-L4) 1.074 -0.2 0.9 Normal Femoral Neck (Left) 0.718 -1.6 -0.2 Osteopenia Total Hip (Left) 1.016 -0.1 0.7 Normal Femoral Neck (Right) 0.676 -1.9 -0.5 Osteopenia Total Hip (Right) 0.973 -0.4 0.4 Normal Total Hip Mean 0.995 -0.3 0.6 Normal World Health Organization criteria for BMD impression classify patients as: Normal (T-score at or above -1.0), Osteopenia (T-score between -1.0 and -2.5), or Osteoporosis (T-score at or below -2.5). 10-year Fracture Risk(1): Major Osteoporotic Fracture 7.7% Hip Fracture 2.5% Reported Risk Factors: [place] (), Neck BMD=0.676, BMI=27.5 (1) FRAX(R) Version 3.08. Fracture probability calculated for an untreated patient. Fracture probability may be lower if the patient has received treatment. Clinical Information Provided by Patient: Has the following medical conditions: Cancer, End stage renal disease Patient maximum height was 66 No regular weight bearing exercise Impression: The patient has low bone mass, based on the Right Femoral Neck T-score. The patient has an estimated ten-year risk of hip fracture of 2.5% and an estimated ten-year risk of major fracture of 7.7%, based on the WHO FRAX algorithm. Discussion: BONE DENSITY IS LOW AT ONE OR MORE SKELETAL SITES. This patient's lowest T-score is low at one or more skeletal sites. It meets the World Health Organization's (WHO) criteria for ?low bone mass? (T-score between -1.0 and -2.5). The patient's 10-year risk of fracture as calculated by FRAX is less than the threshold where pharmacological therapy is recommended by the National Osteoporosis Foundation (NOF). However, all treatment decisions require clinical judgment and consideration of individual patient factors, including patient preferences, comorbidities, previous drug use, risk factors not captured in the FRAX model (e.g., frailty, falls, vitamin D deficiency, increased bone turnover, interval significant decline in bone density) and possible under or overestimation of fracture risk by FRAX. The patient should follow a healthful lifestyle (good nutrition with adequate calcium and vitamin D, and appropriate weight-bearing exercise). Follow-Up: Consider repeating this study in 2 to 3 years to reassess this patient's status, or sooner if there is some new clinical indication. Reported by: CARL on 08/18/2024 9:20:00 AM. Reviewed, dictated and finalized at location A. RAYA
== END 2024-08-18 08:37 | disposition home or self-care (01) ==
LOC: ANHIMG 08:38
PROVIDERS: PCP Family Medicine; Visit Provider Nurse Practitioner Adult Health
DX: M85.89 Other specified disorders of bone density and structure, multiple sites (principal)
CPT/HCPCS: 77080

== ENCOUNTER 2024-10-11 13:42 | Outpatient (CLI) | payer MEDICARE, SELFPAY ==
[2024-10-11 14:33] LABS: Hematocrit 31.5 % (42.0-52.0); Hemoglobin 10.4 g/dL (14.0-18.0); Mean Corpuscular Volume 93.8 fl (80-100); Platelet Count Result 172 k/mm3 (150-375); Red Blood Count 3.36 M/mm3 (4.6-6.20); Red Cell Distribution Width 13.8 % (11.5-14.5); White Blood Count 8.9 K/mm3 (4.5-10.0)
--- OUTSIDE RECORDS SUMMARY | 2024-10-11 14:35 | XMS_ITS | Encounter Summary ---
Author Organization [facility] Address [address] [place] [address] Phone Care Team Providers Care Helminthology Teacher Name Role Phone Fuentes Orellana MD Primary Care Provider [phone] Itz Iyer MD Unavailable [phone] Shawnee Mckinney MD Unavailable [phone] Chicho Clayton MD Unavailable Maria Guadalupe Palacios RN Unavailable Unava ilable Lupillo Davenport MD Unavailable [phone] Danis Meza PACKING AND SHIPPING CLERK Unavailable [phone] Antonette Owens NP Unavailable Aniceto Foley MD Unavailable [phone] Encounter Details Date Type Department Care Team (Latest Contact Info) Description 01/18/2019 Orders Only [facility] Scanning, Provider Social History Tobacco Use Types Packs/Day Years Used Date Smoking Tobacco: Former Smokeless Tobacco: Never Alcohol Use Standard Drinks/Week Comments Yes 0 (1 standard drink = 0.6 oz pur e alcohol) Sex and Gender Information Value Date Recorded Sex Assigned at Not on file Legal Sex Male 12:32 AM MUSEUM TECHNICIAN Gender Identity Not on file Sexual Orientation Choose not to disclose 2018 8:58 AM CDT documented as of this encounter Plan of Treatment Not on file documented as of this encounter Procedures Procedure Name Priority Date/Time Associated Diagnosis Comments SCAN - RADIOLOGY/IMAGING 01/18/2019 documented in this encounter Results * SCAN - RADIOLOGY/IMAGING (01/18/2019) Anatomical Region Laterality Modality Other Provider Scanning Final Result documented in this encounter Visit Diagnoses Not on filedocumented in this encounter Care Teams Helminthology Teacher Relationship Specialty Start Date End Date Fuentes Orellana MD PCP - General 11/28/16 Itz Iyer MD [address] [place] [address] Consulting Physician Urology 05/31/18 Shawnee Mckinney MD [address] [facility] [address] [place] [address] Referring Physician Urology 06/03/18 Chicho Clayton MD [address] [place] [address] Medical Oncologist/Hematologis t Medical Oncology 06/07/18 Maria Guadalupe Palacios, RN Registered Nurse 06/10/18 Lupillo Davenport MD Referring Physician Radiation Oncology 06/16/18 Danis Meza NP [address] [place] [address] Nurse Practitioner Urology 10/06/22 Antonette Owens NP [address] [place] [address] Nurse Practitioner Cardiovascular Disease 10/06/22 Aniceto Foley MD [address] [place] [address] Surgeon Vascular Surgery 10/31/22 documented as of this encounter
--- OUTSIDE RECORDS SUMMARY | 2024-10-11 14:35 | XMS_ITS | Encounter Summary ---
Author Organization [facility] Address [address] [place] [address] Phone Care Team Providers Care Botany Laboratory Assistant Name Role Phone Fuentes Orellana MD Primary Care Provider Brent Dickinson DO Unavailable [phone] Faviola Jiménez COMMUNITY MUSIC THERAPIST, WAD LUBRICATOR Unavailable Shawnee Mckinney MD Unavailable Chicho Clayton MD Unavailable Lai Lambert COMMUNITY MUSIC THERAPIST, WAD LUBRICATOR Unavailable Kami Meneses MD Unavailable [phone] Anette Bond MD Unavailable [phone] Kay Gordon COMMUNITY MUSIC THERAPIST, WAD LUBRICATOR Unavailable Kami Meneses MD Unavailable [phone] Encounter Details Date Type Department Care Team (Late st Contact Info) Description 08/22/2024 Telephone [facility] [address] [place] [address] Kami Meneses MD [address] [address] Social History Tobacco Use Types Packs/Day Years Used Date Smoking Tobacco: Former Cigarettes 1 15 1 - 06/13/1985 Smokeless Tobacco: Never Comments:quit 33 years ago Alcohol Use Standard Drinks/Week Comments Yes 7 (1 standard drink = 0.6 oz pur e alcohol) Sexually Active Control Partners Comments Not Currently Sex and Gender Information Value Date Recorded Sex Assigned at Male 04/14/2023 9:56 AM CDT Legal Sex Male 9:50 PM CDT Gender Identity Male 04/14/2023 9:56 AM CDT Sexual Orientation Not on file 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 Pt made aware he should be receiving a call for date/ time. He wanted to make you aware that sometimes when he coughs he right testicle comes up. He states its not new and doesn't always cause pain. BANQUET WAITER/WAITRESS * Telephone Encounter - Elidia Dill - 08/29/2024 8:20 AM CST Please see Dr. Otto message. BANQUET WAITER/WAITRESS * Telephone Encounter - Kami Meneses MD - 08/22/2024 10:13 PM CST This patient was supposed to have a PSMA PET scan done that I ordered in December. It was never completed. He needs to have this done as soon as possible. Can you please help schedule this prior to any surgical intervention. Can you please also schedule this patient for: Cystoscopy, possible resection of bladder neck contracture/Optilume, possible revision of artificial urinary sphincter. This needs to be done at [facility] by me. He will need a urine culture 14 days prior to surgery. Hibiclens shower the night before morning of surgery, vancomycin and gentamicin for antibiotics BANQUET WAITER/WAITRESS BANQUET WAITER/WAITRESS documented in this encounter Plan of Treatment Upcoming Encounters Date Type Department Care Team (Late st Contact Info) Description 01/27/2025 9:45 AM CDT Office Visit [facility] [address] [place] [address] Kami Meneess MD #2 [facility], [address] [address] documented as of this encounter Visit Diagnoses Not on filedocumented in this encounter Care Teams Botany Laboratory Assistant Relationship Specialty Start Date End Date Fuentes Orellana MD [address] [place] [place] [address] PCP - General Family Medicine 07/06/15 Brent Dickinson DO [address] [place] [address] Gastroenterology 06/27/16 Faviola Jiménez APRN, WAD LUBRICATOR [address] [place] [address] Nurse Practitioner Advanced Practice Nurse 07/22/16 Shawnee Mckinney MD [address] [facility] [address] [place] [address] Urologist Urology 06/07/19 Chicho Clayton MD [address] [facility] [address] [place] [address] Oncology 06/13/19 Lai Lambert APRN, WAD LUBRICATOR [address] [place] [address] Nurse Practitioner Advanced Practice Nurse 02/10/23 Kami Meneses MD [address] [facility] [address] [place] [address] Consulting Physician Urology 06/16/23 Anette Bond MD #[address] [place] [address] Consulting Physician Gastroenterology 12/25/22 Kay Gordon APRN, WAD LUBRICATOR #2 [place] [address] Nurse Practitioner Advanced Practice Nurse 06/16/24 Kami Meneses MD #[address] [facility] [address] [place] [address] Consulting Physician Urology 08/19/24 documented as of this encounter
--- OUTSIDE RECORDS SUMMARY | 2024-10-11 14:35 | XMS_ITS | CONTINUITY OF CARE DOCUMENT ---
Author Name malik gan Address Unknown Organization [facility] Address [address] [place] [address] [address] [place] [address] Phone [phone] Care Team Providers Care Quality Control Representative Name Role Phone Dinh BARRERA, [facility] Unavailable [phone]
--- OUTSIDE RECORDS SUMMARY | 2024-10-11 14:35 | XMS_ITS | Encounter Summary ---
Author Organization [facility] Address [address] [place] [address] Phone Care Team Providers Care Logistics Manager Name Role Phone Fuentes Orellana MD Primary Care Provider Brent Dickinson DO Unavailable [phone] Faviola Jiménez DIRECTOR WORKFORCE MANAGEMENT, MORTGAGE LOAN PROCESSING CLERK Unavailable Shawnee Mckinney MD Unavailable Chicho Clayton MD Unavailable Lai Lambert DIRECTOR WORKFORCE MANAGEMENT, MORTGAGE LOAN PROCESSING CLERK Unavailable Kami Meneses MD Unavailable [phone] Anette Bond MD Unavailable [phone] Kay Gordon APRN, MORTGAGE LOAN PROCESSING CLERK Unavailable Kami Meneses MD Unavailable [phone] Reason for Visit * Reason Comments Medication Refill Encounter Details Date Type Department Care Team (Late st Contact Info) Description 03/25/2021 Refill [facility] #2 [place] [address] Ingrid Mccloud, PAC [address] [place] [address] Medication Refill Social History Tobacco Use Types Packs/Day Years Used Date Smoking Tobacco: Former Cigarettes 1 15 1 - 06/13/1985 Smokeless Tobacco: Never Comments:quit 33 years ago Alcohol Use Standard Drinks/Week Comments Yes 0 (1 standard drink = 0.6 oz pur e alcohol) 12-15 beers per week Sexually Active Control Partners Comments Not Currently Sex and Gender Information Value Date Recorded Sex Assigned at Male 04/14/2023 9:56 AM CDT Legal Sex Male 9:50 PM CDT Gender Identity Male 04/14/2023 9:56 AM CDT Sexual Orientation Not on file 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 pantoprazole (PROTONIX) 40 MG Tablet Delayed Response [Pharmacy Med Name: PANTOPRAZOLE 40MG TABLETS] 90 Tablet 0 Sig: TAKE 1 TABLET BY MOUTH DAILY Last fill: 12/17/2020 Patients last OV with GI: 02/11/2021 Next Office Visit with GI: Pt has a 6 month recall for office visit documented in this encounter Plan of Treatment Upcoming Encounters Date Type Department Care Team (Late st Contact Info) Description 01/27/2025 9:45 AM CDT Office Visit [facility] [address] [place] [address] Kami Meneses MD [address], [address] [address] documented as of this encounter Visit Diagnoses Not on filedocumented in this encounter Additional Health Concerns Infection Onset Date Last Indicated Resolved Time C. difficile Rule-Out 04/10/2021 04/10/20212020 12:16 AM CDT documented as of this encounter Care Teams Logistics Manager Relationship Specialty Start Date End Date Fuentes Orellana MD [address] [address] PCP - General Family Medicine 07/06/15 Brent Dickinson DO [address] [place] [address] Gastroenterology 06/27/16 Faviola Jiménez APRN, MORTGAGE LOAN PROCESSING CLERK [address] [facility] [place] [address] Nurse Practitioner Advanced Practice Nurse 07/22/16 Shawnee Mckinney MD [address] [facility] [address] [place] [address] Urologist Urology 06/07/19 Chicho Clayton MD [address] [facility] 7 [place] [address] Oncology 06/13/19 Lai Lambert APRN, MORTGAGE LOAN PROCESSING CLERK #2 [place] [address] Nurse Practitioner Advanced Practice Nurse 02/10/23 Kami Meneses MD #[address] [address] Consulting Physician Urology 06/16/23 Anette Bond MD #2 [place] [address] Consulting Physician Gastroenterology 12/25/22 Kay Gordon APRN, MORTGAGE LOAN PROCESSING CLERK #2 [place] [address] Nurse Practitioner Advanced Practice Nurse 06/16/24 Kami Meneses MD #[address] [address] Consulting Physician Urology 08/19/24 documented as of this encounter
--- OUTSIDE RECORDS SUMMARY | 2024-10-11 14:35 | XMS_ITS | Encounter Summary ---
Author Organization [facility] Address [address] [place] [address] Phone Care Team Providers Care Civil Rights Investigator Name Role Phone Fuentes Orellana MD Primary Care Provider Brent Dickinson DO Unavailable [phone] Faviola Jiménez HOSPITAL SUPERINTENDENT, HUMAN DEVELOPMENT PROFESSOR Unavailable Shawnee Mckinney MD Unavailable Chicho Clayton MD Unavailable Lai Lambert HOSPITAL SUPERINTENDENT, HUMAN DEVELOPMENT PROFESSOR Unavailable Kami Meneses MD Unavailable [phone] Anetet Bond MD Unavailable [phone] Kay Gordon APRN, HUMAN DEVELOPMENT PROFESSOR Unavailable Kami Meneses MD Unavailable [phone] Reason for Visit * Reason Comments Medication Refill Encounter Details Date Type Department Care Team (Late st Contact Info) Description 10/15/2021 Refill [facility] #2 [place] [address] Ingrid Mccloud, PAC [address]2 [place] [address] Medication Refill Social History Tobacco Use Types Packs/Day Years Used Date Smoking Tobacco: Former Cigarettes 1 15 1 - 06/13/1985 Smokeless Tobacco: Never Comments:quit 33 years ago Alcohol Use Standard Drinks/Week Comments Yes 0 (1 standard drink = 0.6 oz pur e alcohol) rare Sexually Active Control Partners Comments Not Currently Sex and Gender Information Value Date Recorded Sex Assigned at Male 04/14/2023 9:56 AM CDT Legal Sex Male 9:50 PM CDT Gender Identity Male 04/14/2023 9:56 AM CDT Sexual Orientation Not on file 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 [facility] documented in this encounter Plan of Treatment Upcoming Encounters Date Type Department Care Team (Late st Contact Info) Description 01/27/2025 9:45 AM CDT Office Visit [facility] #2 [place] [address] Kami Meneses MD #[address] [address] documented as of this encounter Visit Diagnoses Not on filedocumented in this encounter Care Teams Civil Rights Investigator Relationship Specialty Start Date End Date Fuentes Orellana MD [address] [address] PCP - General Family Medicine 07/06/15 Brent Dickinson DO [address] [address] Gastroenterology 06/27/16 Faviola Jiménez APRN, HUMAN DEVELOPMENT PROFESSOR [address] [address] Nurse Practitioner Advanced Practice Nurse 07/22/16 Shawnee Mckinney MD [address] [facility] [address] [place] [address] Urologist Urology 06/07/19 Chicho Clayton MD [address] [facility] 7 [place] [address] Oncology 06/13/19 Lai Lambert APRN, HUMAN DEVELOPMENT PROFESSOR #2 [place] [address] Nurse Practitioner Advanced Practice Nurse 02/10/23 Kami Meneses MD #[address] [address] Consulting Physician Urology 06/16/23 Anette Bond MD #2 [place] [address] Consulting Physician Gastroenterology 12/25/22 Kay Gordon APRN, HUMAN DEVELOPMENT PROFESSOR #2 [place] [address] Nurse Practitioner Advanced Practice Nurse 06/16/24 Kami Meneses MD #[address] [address] Consulting Physician Urology 08/19/24 documented as of this encounter
--- OUTSIDE RECORDS SUMMARY | 2024-10-11 14:35 | XMS_ITS | Encounter Summary ---
Author Organization [facility] Address [address] [place] [address] Phone Care Team Providers Care Gas Brazer Name Role Phone Fuentes Orellana MD Primary Care Provider [phone] Itz Iyer MD Unavailable [phone] Lupillo Davenport MD Unavailable [phone] Lupillo Davenport MD Unavailable [phone] Shawnee Mckinney MD Unavailable [phone] Chicho Clayton MD Unavailable Newton Weeks MD Unavailable [phone] Maria Guadalupe Palacios RN Unavailable Unava ilable Lupillo Davenport MD Unavailable [phone] Itz Iyer MD Unavailable [phone] Itz Iyer MD Unavailable [phone] Itz Iyer MD Unavailable [phone] Itz Iyer MD Unavailable [phone] Itz Iyer MD Unavailable [phone] Itz Iyer MD Unavailable [phone] Danis Meza BOX FINISHER Unavailable Antonette Owens BOX FINISHER Unavailable Aniceto Foley MD Unavailable [phone] Encounter Details Date Type Department Care Team (Latest Contact Info) Description 05/04/2017 Orders Only [facility] CONVERSION Scanning, Provider Social History Tobacco Use Types Packs/Day Years Used Date Smoking Tobacco: Never Alcohol Use Standard Drinks/Week Comments Yes 0 (1 standard drink = 0.6 oz pur e alcohol) Sex and Gender Information Value Date Recorded Sex Assigned at Not on file Legal Sex Male 12:32 AM VETERINARY RADIOLOGIST Gender Identity Not on file Sexual Orientation Choose not to disclose 2018 8:58 AM CDT documented as of this encounter Plan of Treatment Not on file documented as of this encounter Procedures Procedure Name Priority Date/Time Associated Diagnosis Comments VASCULAR LABORATORY REPORT 05/04/2017 3:29 PM CDT documented in this encounter Results * VASCULAR LABORATORY REPORT (05/04/2017 3:29 PM CDT) Anatomical Region Laterality Modality Ultrasound us Provider Scanning CV VASCULAR PROCEDURES Final R esult documented in this encounter Visit Diagnoses Not on filedocumented in this encounter Care Teams Gas Brazer Relationship Specialty Start Date End Date Fuentes Orellana MD PCP - General 11/28/16 Itz Iyer MD [address] [facility] [address] [place] [address] Consulting Physician Urology 05/31/18 Lupillo Davenport MD [address] [place] [address] Referring Physician Radiation Oncology 05/31/18 Lupillo Davenport MD [address] [place] [address] Referring Physician Radiation Oncology 05/31/18 Shawnee Mckinney MD [address] [facility] [address] [place] [address] Referring Physician Urology 06/03/18 Chicho Clayton MD [address] [facility] [address] [place] [address] Medical Oncologist/Hematologis t Medical Oncology 06/07/18 Newton Weeks MD [address] [facility] [address] [place] [address] Referring Physician Radiation Oncology 06/07/18 Maria Guadalupe Palacios, RN Registered Nurse 06/10/18 Lupillo Davenport MD [address] [place] [address] [place] [address] Referring Physician Radiation Oncology 06/16/18 Itz Iyer MD [address] [place] [address] Consulting Physician Urology 06/17/18 06/17/18 Itz Iyer MD [address] [address] Consulting Physician Urology 06/18/18 06/18/18 Itz Iyer MD [address] [address] Consulting Physician Urology 06/18/18 06/18/18 Itz Iyer MD [address] [place] [address] Consulting Physician Urology 06/22/18 06/22/18 Itz Iyer MD [address] [place] [address] Consulting Physician Urology 07/01/18 07/01/18 Itz Iyer MD [address] [place] [address] Consulting Physician Urology 07/06/18 07/06/18 Danis Meza NP [address] [place] [address] Nurse Practitioner Urology 10/06/22 Antonette Owens NP [address] [place] [address] Nurse Practitioner Cardiovascular Disease 10/06/22 Aniceto Foley MD [address] [place] [address] Surgeon Vascular Surgery 10/31/22 documented as of this encounter
--- OUTSIDE RECORDS SUMMARY | 2024-10-11 14:35 | XMS_ITS | Clinical Summary ---
Author Organization [facility] Address [address] [place] [address] Care Team Providers Care Mathematics Instructor Name Role Phone Fuentes Orellana MD Primary Care Provider [phone] Allergies No known active allergies Medications amLODIPine (NORVASC) 2.5 MG tablet 3 Active allopurinol (ZYLOPRIM) 300 MG tablet Take 1 tablet (300 mg total) by mouth daily. 3 Active ALPRAZolam (XANAX) 0.5 MG tablet Take 1 tablet (0.5 mg total) by mouth 3 (three) times daily as needed. FOR ANXIETY 3 Active atorvastatin (LIPITOR) 80 MG tablet 3 Active aspirin EC 81 MG tablet Take 1 tablet (81 mg total) by mouth daily. Active carvedilol (COREG) 12.5 MG tablet 3 Active chlorthalidone (HYGROTEN) 25 MG tablet 3 Active lisinopril (PRINIVIL) 40 MG tablet Take 1 tablet (40 mg total) by mouth daily. 2 Active magnesium oxide (MAG-OX) 400 (240 Mg) MG tablet TAKE 1 TABLET BY MOUTH TWICE DAILY NEEDED FOR CONSTIPATION 3 Active nortriptyline (PAMELOR) 25 MG capsule 3 Active pantoprazole EC (PROTONIX) 40 MG tablet 3 Active OZEMPIC, 0.25 OR 0.5 MG/DOSE, 2 MG/3ML injection (PEN) 3 Active BRILINTA 60 MG tablet 2 Active Social History Tobacco Use Types Packs/Day Years Used Date Smoking Tobacco: Former Cigarettes Smokeless Tobacco: Never Tobacco Cessation:Counseling Given: Not Answered Alcohol Use Standard Drinks/Week Comments Never 0 (1 standard drink = 0.6 oz pur e alcohol) Sex and Gender Information Value Date Recorded Sex Assigned at Male 11/29/2022 2:30 PM CDT Legal Sex Male 6:47 PM CDT Gender Identity Male 11/29/2022 2:30 PM CDT Sexual Orientation Not on file Last Filed Vital Signs Vital Sign Reading Time Taken Comments Blood Pressure 145/35 11/29/2022 3:30 PM CDT Pulse 75 11/29/2022 3:35 PM CDT Temperature 36.2 C (97.2 F) 11/29/2022 3:35 PM CDT Respiratory Rate 20 11/29/2022 3:35 PM CDT Oxygen Saturation 98% 11/29/2022 3:35 PM CDT Inhaled Oxygen Concentration - - Weight 72.6 kg (160 lb) 11/29/2022 2:12 PM CDT Height 167.6 cm (5' 6 ) 11/29/2022 2:12 PM CDT Body Mass Index 25.82 11/29/2022 2:12 PM CDT Plan of Treatment Health Maintenance Due Date Last Done Comments Colorectal Cancer Screening Colonoscopy (10 Years) 1950 Hepatitis C 1967 Zoster Vaccines (1 of 2) 1999 Annual Medicare Wellness Visit 2014 Pneumococcal Vaccine: 65+ Years (1 of 1 - PCV) 2014 COVID-19 Vaccine ( season) 2024 06/27/2022, 08/15/2021, 11/24/2020, Additional history exists Influenza Adult (#1) 2024 05/31/2022, 05/31/2019, 06/15/2018, Additional history exists RSV Immunization or 60+ Years (1 - 1-dose 75+ series) 2024 DTaP, Tdap and Td Vaccines (2 - Td or Tdap) 10/07/2030 10/07/2020 Meningococcal B Vaccine Aged Out No l onger eligible based on patient's age to complete this topic Meningococcal Vaccine Aged Out No kenny aye eligible based on patient's age to complete this topic RSV Immunizations Under 20 Months Aged Out No longer eligible based on patient's age to complete this topic Insurance MEDICARE [facility] Care Teams Mathematics Instructor Relationship Specialty Start Date End Date Fuentes Orellana MD [address] [place] [address] PCP - General FAMILY PRACTICE 11/29/22
--- OUTSIDE RECORDS SUMMARY | 2024-10-11 14:35 | XMS_ITS | Encounter Summary ---
Author Organization [facility] Address [address] [place] [address] Phone Care Team Providers Care Staff Physical Therapy Assistant Name Role Phone Fuentes Orellana MD Primary Care Provider Brent Dickinson DO Unavailable [phone] Faviola Jiménez FUEL MANAGEMENT HANDLER, SCHEDULE HANGER Unavailable Shawnee Mckinney MD Unavailable Chicho Clayton MD Unavailable Lai Lambert FUEL MANAGEMENT HANDLER, SCHEDULE HANGER Unavailable Kami Meneses MD Unavailable [phone] Anette Bond MD Unavailable [phone] Kay Gordon FUEL MANAGEMENT HANDLER, SCHEDULE HANGER Unavailable Kami Meneses MD Unavailable [phone] Encounter Details Date Type Department Care Team (Late st Contact Info) Description 09/27/2024 Results Follow-Up [facility] [address] [place] [address] Kami Meneses MD [address], [address] [address] Social History Tobacco Use Types Packs/Day Years [...] 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 He states he is doing better but he wanted to make you aware he stopped taking gemtesa. He didn't feeling like it was doing anything for him. OR WINDOWS ADMINISTRATOR * Kami Meneses MD - 09/27/2024 12:18 PM CST Can you please let the patient know urine culture positive, I placed antibiotic. Can you please have him get test of cure urine culture once he completes the antibiotic. Nneka for my [facility] office should be calling him to schedule surgery.. Thank you, Kami Meneses OR WINDOWS ADMINISTRATOR documented in this encounter Plan of Treatment Upcoming Encounters Date Type Department Care Team (Late st Contact Info) Description 01/27/2025 9:45 AM CDT Office Visit [facility] [address] [place] [address] Kami Meneses MD [address], [address] [address] documented as of this encounter Visit Diagnoses Not on filedocumented in this encounter Care Teams Staff Physical Therapy Assistant Relationship Specialty Start Date End Date Fuentes Orellana MD [address] [place] [address] PCP - General Family Medicine 07/06/15 Brent Dickinson DO [address] [facility] [place] [address] Gastroenterology 06/27/16 Faviola Jiménez APRN, SCHEDULE HANGER [address] [place] [address] Nurse Practitioner Advanced Practice Nurse 07/22/16 Shawnee Mckinney MD [address] [facility] [address] [place] [address] Urologist Urology 06/07/19 Chicho Clayton MD [address] [facility] [address] [place] [address] Oncology 06/13/19 Lai Lambert APRN, SCHEDULE HANGER [address] [place] [address] Nurse Practitioner Advanced Practice Nurse 02/10/23 Kami Meneses MD #[address] [address] Consulting Physician Urology 06/16/23 Anette Bond MD [address] [place] [address] Consulting Physician Gastroenterology 12/25/22 Kay Gordon APRN, HODAN [address] [place] [address] Nurse Practitioner Advanced Practice Nurse 06/16/24 Kami Meneses MD #[address] [address] Consulting Physician Urology 08/19/24 documented as of this encounter
--- OUTSIDE RECORDS SUMMARY | 2024-10-11 14:35 | XMS_ITS | Clinical Summary ---
Author Organization [facility] Address [address], [facility] [address] [place] [address] Phone Care Team Providers Care Vp Business Development Name Role Phone Fuentes Orellana MD Primary Care Provider Brent Dickinson DO Unavailable [phone] Faviola Jiménez SPRINKLER INSPECTOR, WAXER TENDER Unavailable Shawnee Mckinney MD Unavailable Chicho Clayton MD Unavailable Lai Lambert SPRINKLER INSPECTOR, WAXER TENDER Unavailable [phone] Kami Meneses MD Unavailable [phone] Anette Bond MD Unavailable [phone] Kay Gordon SPRINKLER INSPECTOR, WAXER TENDER Unavailable Kami Meneses MD Unavailable [phone] Allergies No known active allergies Medications lisinopril (PRINIVIL, ZESTRIL) 40 MG Tablet Take 20 mg by mouth every morning. 6 Active metFORMIN (GLUCOPHAGE) 500 MG Tablet 2 6 Active aspirin EC 81 MG Tablet Delayed Response Take 81 mg by mouth daily. Active atorvastatin (LIPITOR) 80 MG Tablet Take 40 mg by mouth nightly. Active nitroGLYCERIN (NITROSTAT) 0.3 MG SL Tablet 0.3 mg by Sublingual route every 5 minutes as needed for Chest pain. Active allopurinol (ZYLOPRIM) 300 MG Tablet Take by mouth daily. Active carvedilol (COREG) 12.5 MG Tablet Take 12.5 mg by mouth 2 times daily. Active nortriptyline (PAMELOR) 25 MG Capsule Take 25 mg by mouth nightly. Active ALPRAZolam (XANAX) 0.5 MG Tablet 9 Active magnesium oxide (MAG-OX) 400 MG Tablet 2 times daily. 0 Active Probiotic Product (PROBIOTIC PO) Take by mouth. Active Bimatoprost (Lumigan) 0.01 % Solution Place 1 Drop in affected eye(s) nightly. Active clopidogrel (PLAVIX) 75 MG Tablet 1 Active other by Other route. Acti ve pantoprazole (PROTONIX) 40 MG Tablet Delayed Response TAKE 1 TABLET BY MOUTH DAILY 90 Tablet 1 3 Active Additional Information Patient not taking.Reported on 08/19/2024 ticagrelor (BRILINTA) 60 MG Tablet Take 60 mg by mouth 2 times daily. 2 Active Semaglutide,0.2 5 or 0.5MG/DOS, (Ozempic, 0.25 or 0.5 MG/DOSE,) 2 MG/1.5ML Solution Pen-injector by Subcutaneous route once a week. Active glipiZIDE (GLUCOTROL XL) 2.5 MG TABLET SR 24 HR Take 2.5 mg by mouth daily. 3 Active chlorthalidone (HYGROTON) 25 MG Tablet Take 25 mg by mouth. 3 Active pentoxifylline (TRENtal) 400 MG Tablet Controlled Release Take 400 mg by mouth. 4 025 Active Kerendia 10 MG Tablet Take 1 Tablet by mouth daily. 4 Active amLODIPine (NORVASC) 5 MG Tablet Take 5 mg by mouth daily. 4 Active Tradjenta 5 MG Tablet Take 5 mg by mouth every morning. 4 Active telmisartan (MICARDIS) 80 MG Tablet Take 80 mg by mouth. 4 025 Active famotidine (PEPCID) 20 MG TabletIndicatio ns:Gastroesopha geal reflux disease, unspecified whether esophagitis present Take 1 Tablet by mouth every evening. Before dinner 90 Tablet 1 4 Active metoprolol tartrate (LOPRESSOR) 25 MG Tablet Take 25 mg by mouth 2 times daily. 4 Active clotrimazole-be tamethasone (LOTRISONE) 1-0.05 % Cream Application Site: apply to tip of penis and around the buttock twice a day for 2 weeks (Description and Location) 30 g 3 5 Active rosuvastatin (CRESTOR) 40 MG Tablet Take 40 mg by mouth daily. 4 025 Vibegron (Gemtesa) 75 MG Tablet Take 75 mg by mouth daily for 30 days. 30 Tablet 3 4 025 amoxicillin-cla vulanate (AUGMENTIN) 875-125 MG Tablet Take 1 Tablet by mouth 2 times daily for 10 days. 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 Iron deficiency anemia 02/15/2020 Collagenous colitis 07/22/2016 Gastroesophageal reflux disease 07/22/2016 Hx of colonic polyps 07/22/2016 Encounters Date Type Department Care Team Description 09/27/2024 Results Follow-Up [facility] [address] [place] [id number] Kami Meneses MD 09/26/2024 Telephone [facility] [address] [place] [address] Kami Meneses MD Results 09/23/2024 11:30 AM BELLMAN Clinical Support [facility] [address] [place] [id number] [facility] UTI symptoms (Primary Dx) Discharge Disposition: Discharged to home or Selfcare 09/23/2024 Telephone [facility] [address] [place] [address] Kami Meneses MD Rash 09/23/2024 Travel 09/14/2024 11:18 AM BELLMAN - 09/14/2024 11:59 PM BELLMAN Hospital Encounter [facility] PET [address] [place] [address] Kami Meneses MD Discharge Disposition: Discharged to home or Selfcare 09/14/2024 11:00 AM BELLMAN Clinical Support [facility] [address] [facility] [place] [address] [facility] UTI symptoms (Primary Dx) Discharge Disposition: Discharged to home or Selfcare 09/14/2024 Travel 09/02/2024 Telephone [facility] [address] [facility] [place] [address] Kami Meneses MD 08/22/2024 Telephone [facility] [address] [place] [address] Kami Meneses MD 08/19/2024 8:30 AM BELLMAN Procedure Visit [facility] [address] [place] [address] Kami Meneses MD Stress incontinence (female) (male) (Primary Dx) Discharge Disposition: Discharged to home or Selfcare 08/19/2024 Travel 08/15/2024 1:00 PM BELLMAN Office Visit [facility] [address] [facility] [place] [address] Lai Lambert APRN, WAXER TENDER Other urinary incontinence (Primary Dx); Prostate cancer (HCC); Stress incontinence (female) (male) Discharge Disposition: Discharged to home or Selfcare 08/15/2024 Travel 08/12/2024 10:30 AM BELLMAN - 08/12/2024 11:59 PM BELLMAN Hospital Encounter [facility] [address] [facility] [place] [address] Kay Gordon APRN, CNP Discharge Disposition: Discharged to home or Selfcare 08/12/2024 Results Follow-Up [facility] [address] [place] [address] Kay Gordon APRN, CNP 08/10/2024 10:00 AM BELLMAN Office Visit [facility] [address] [place] [address] Kay Gordon APRN, CNP Dysphagia, unspecified type (Primary Dx); Gastroesophageal reflux disease, unspecified whether esophagitis present Discharge Disposition: Discharged to home or Selfcare 08/10/2024 Travel from Last 3 Months Immunizations Immunization Administration Dates Next Due Covid-19, Mrna, Lnp-s, Pf, 30 Mcg/0.3 Ml Dose (Veena hay) 11/24/2020,11/01/2020 Influenza Vaccine, MDCK,quadrivalent, pres free 05/31/2019,06/15/2018 Influenza Vaccine,unspecified Formulation 2021 Influenza, High-dose, Quadrivalent 06/27/2022, Influenza, Quadrivalent, Adjuvanted 08/25/2023,1 Influenza, high-dose, trivalent, PF 06/06/2024 Pneumococcal PCV, Unspecified Formulation 2014 Pneumococcal Vaccine Adult - 23 Valent 5 TDAP Vaccine 10/07/2020 Family History Medical History Relation Name Comments Cancer Father Lung Cancer Father Breast Cancer Mother Cancer Mother Relation Name Status Comments Father Mother Social History Tobacco Use Types Packs/Day Years [...] Job 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 Not on file Not on file Not on cory e Last Filed Vital Signs Vital Sign Reading Time Taken Comments Blood Pressure 137/61 08/19/2024 8:11 AM BELLMAN Pulse 81 08/19/2024 8:11 AM BELLMAN Temperature 36.4 C (97.6 F) 08/10/2024 9:53 AM BELLMAN Respiratory Rate 18 09/23/2024 12:41 PM BELLMAN Oxygen Saturation 98% 08/19/2024 8:11 AM BELLMAN Inhaled Oxygen Concentration - - Weight 71.7 kg (158 lb) 09/23/2024 12:41 PM BELLMAN Height 167.6 cm (5' 6 ) 09/23/2024 12:41 PM BELLMAN Body Mass Index 25.5 09/23/2024 12:41 PM BELLMAN Plan of Treatment Upcoming Encounters Date Type Department Care Team (Late st Contact Info) Description 01/27/2025 9:45 AM CDT Office Visit [facility] [address] [place] [address] Kami Meneses MD [address] [facility], [address] [address] Health Maintenance Due Date Last Done Comments Hepatitis C Virus (HCV) Screening 1950 Zoster Immunization (1 of 2) 1968 Cologuard 1999 Immunochemical Fecal Occult Blood 1999 Pneumococcal Immunization (50+ years) (2 of 2 - PCV) 11/23/2015 11/22/2014, 11/22/2014 Respiratory Syncytial Virus (RSV) Immunization (Adult) (1 - 1-dose 75+ series) 2024 SARS-COV-2 Immunization (7 - Pfizer risk season) 2024 06/06/2024, 08/25/2023, 06/27/2022, Additional history exists Colonoscopy 05/24/2025 05/24/2020, 05/02, 12/15/2016, Additional history exists Colorectal Cancer Screening 05/24/2025 Td Immunization Every 10 Years (Adults With 1 Tdap) 10/07/2030 10/07/2020 05/24/2020, 05/02, 12/15/2016, Additional history exists Pneumococcal Immunization Combined Discontinued 11/22/2014, 11/22/2014 DTaP/Tdap/Td Immunization Discontinued 10/07/2020 Influenza Immunization Completed , 08/25/2023, 06/27/2022, Additional history exists Hepatitis B Immunization Aged Out No longer eligible based on patient's age to complete this topic Meningococcal Immunization (ACWY) Aged Out No longer eligible based on patient's age to complete this topic Rotavirus Immunization Aged Out No lo nger eligible based on patient's age to complete this topic Procedures Procedure Name Priority Date/Time Associated Diagnosis Comments CULTURE, URINE Routine 09/23/2024 12:47 PM BELLMAN UTI symptoms PET CT TUMOR IMAGING, PROSTATE, SKULL BASE TO MID THIGH Routine 09/14/2024 1:30 PM BELLMAN Prostate cancer (HCC) CULTURE, URINE Routine 09/14/2024 11:59 AM BELLMAN UTI symptoms URINALYSIS REFLEX IF INDICATED BY ABNORMAL RESULTS Routine 08/19/2024 9:08 AM BELLMAN Stress incontinence (female) (male) CULTURE, URINE Routine 08/19/2024 9:08 AM BELLMAN Stress incontinence (female) (male) CYSTOURETHROSCOPY Routine 08/19/2024 8:3 0 AM BELLMAN Stress incontinence (female) (male) POCT UA AUTOMATED W/O MICRO Routine 08/19/2024 8:19 AM BELLMAN Stress incontinence (female) (male) POCT UA AUTOMATED W/O MICRO Routine 08/15/2024 1:11 PM BELLMAN Other urinary incontinence XR ESOPHAGRAM Routine 08/12/2024 11:20 AM BELLMAN Dysphagia, unspecified type HM COLONOSCOPY Routine 05/24/2020 from Last 3 Months or Most Recently Relevant to Health Maintenance Results * CULTURE, URINE (09/23/2024 12:47 PM BELLMAN) Only the most recent of3 resultswithin the time period is included. CULTURE RESULTS ENTEROCOCCUS FAECALIS 09/26/2024 10:14 AM BELLMAN [facility] Culture (Pre-Op Catheter) Non-Phlebotomy Collection / Unknown 09/23/2024 12:47 PM BELLMAN 09/23/2024 12:47 PM BELLMAN Narrative [facility] - 09/26/2024 10:14 AM BELLMAN Susceptibility not performed on enterococcus species. Due to high achievable concentrations in urine, Ampicillin is the drug of choice for treating infections limited to the lower urinary tract (regardless of Vancomycin susceptibility). For allergic patients, Nitrofurantoin or a quinolone may be substituted. Organism Antibiotic Method Susceptibility Enterococcus faecalis Ampicillin [facility] II <=2 mcg/ml: Susceptible Enterococcus faecalis Benzylpenicillin [facility] II 8 mcg/ml: Susceptible Enterococcus faecalis Linezolid [facility] II 2 mcg/ml: Susceptible Enterococcus faecalis Vancomycin [facility] II 1 mcg/ml: Susceptible [facility] MICROBIOLOGY - GENERAL ORDERAB LES Final Result [facility] [address] [place] [address], * PET CT TUMOR IMAGING, PROSTATE, SKULL BASE TO MID THIGH (09/14/2024 1:30 PM BELLMAN) Anatomical Region Laterality Modality BODY N/A Positron Emissio n Tomography (PET) 09/15/2024 8:48 AM BELLMAN Impressions 09/15/2024 8:50 AM BELLMAN IMPRESSION: No abnormal lymphadenopathy in the abdomen or pelvis. No suspicious osseous lesions. Noncalcified pulmonary nodules measuring up to 3 mm show no abnormal uptake but are small and may be below PET resolution. Attention on follow-up imaging is recommended. Right thyroid nodule measuring 1.7 cm with a macrocalcification. See above. Narrative 09/15/2024 8:50 AM BELLMAN EXAM DESCRIPTION: PET CT TUMOR IMAGING, PROSTATE, SKULL BASE TO MID THIGH RADIOPHARMACEUTICAL: 10.9 mCi F-18 prostate specific membrane antigen (PSMA) via a right antecubital vein IV site REASON FOR STUDY: Restaging of prostate cancer. Rising PSA. Prostatectomy in 2004. TECHNIQUE: After intravenous administration of PSMA, noncontrast CT images were obtained for attenuation correction and for fusion with emission PET images to allow for anatomical localization of PET findings. Emission PET images were then obtained. The reported standardized uptake value maximum (SUVmax) values have been normalized to body weight (SUVbw). The area imaged spanned the region from the skull base to the proximal thighs. The time from injection to start of imaging was 72 minutes. COMPARISON: CT abdomen and pelvis 06/02/2023 FINDINGS: For reference, the maximum SUV of the ascending thoracic aorta is 2.7 . The maximum SUV of the liver is 10.6 . Head: Normal uptake is seen in the included portion of the brain. Neck: Physiologic uptake in the salivary glands. No suspicious cervical lymphadenopathy. Chest: No abnormal lymphadenopathy in the axillae, mediastinum, or maris. Noncalcified 3 mm nodule in the medial right upper lobe shows no abnormal uptake. Noncalcified 3 mm nodule in the left lower lobe is unchanged from 2020 and shows no abnormal uptake. Heart projects borderline enlarged. Moderate coronary artery calcification. No significant pleural effusion. Trace pericardial effusion. Right thyroid nodule measuring 1.7 cm with a macrocalcification According to the White Paper of the ACR Incidental Thyroid Findings Committee, incidentally detected thyroid nodules in patients 35 years, further evaluation with thyroid ultrasound if the nodule is 1.5 cm, without suspicious imaging features, and the patient has normal life expectancy. Abdomen and Pelvis: No abnormal focal liver lesion. No abnormality of the gallbladder. The spleen is normal. Normal noncontrast appearance of the pancreas. The adrenal glands are normal. Normal genitourinary activity. The bladder is decompressed and incompletely evaluated. Mild sigmoid colon diverticulosis. Mild physiologic uptake in the proximal small bowel. Atherosclerotic calcification of the abdominal aorta without aneurysm. Small fat containing umbilical hernia. Postoperative change from artificial urinary sphincter noted. Prior prostatectomy. No abnormal lymph nodes in the abdomen or pelvis. Bones: No acute or aggressive appearing osseous lesions. THIS IS AN ELECTRONICALLY VERIFIED FINAL REPORT 09/15/2024 8:48 AM - Electronically signed by Nilo Magana M.D. LB: JAMES Report ID: [id number] Reading Location: [id number] Procedure Note Nilo Magana MD - 09/15/2024 EXAM DESCRIPTION: PET CT TUMOR IMAGING, PROSTATE, SKULL BASE TO MID THIGH RADIOPHARMACEUTICAL: 10.9 mCi F-18 prostate specific membrane antigen (PSMA) via a right antecubital vein IV site REASON FOR STUDY: Restaging of prostate cancer. Rising PSA. Prostatectomy in 2004. TECHNIQUE: After intravenous administration of PSMA, noncontrast CT images were obtained for attenuation correction and for fusion with emission PET images to allow for anatomical localization of PET findings. Emission PET images were then obtained. The reported standardized uptake value maximum (SUVmax) values have been normalized to body weight (SUVbw). The area imaged spanned the region from the skull base to the proximal thighs. The time from injection to start of imaging was 72 minutes. COMPARISON: CT abdomen and pelvis 06/02/2023 FINDINGS: For reference, the maximum SUV of the ascending thoracic aorta is 2.7 . The maximum SUV of the liver is 10.6 . Head: Normal uptake is seen in the included portion of the brain. Neck: Physiologic uptake in the salivary glands. No suspicious cervical lymphadenopathy. Chest: No abnormal lymphadenopathy in the axillae, mediastinum, or maris. Noncalcified 3 mm nodule in the medial right upper lobe shows no abnormal uptake. Noncalcified 3 mm nodule in the left lower lobe is unchanged from 2020 and shows no abnormal uptake. Heart projects borderline enlarged. Moderate coronary artery calcification. No significant pleural effusion. Trace pericardial effusion. Right thyroid nodule measuring 1.7 cm with a macrocalcification According to the White Paper of the ACR Incidental Thyroid Findings Committee, incidentally detected thyroid nodules in patients 35 years, further evaluation with thyroid ultrasound if the nodule is 1.5 cm, without suspicious imaging features, and the patient has normal life expectancy. Abdomen and Pelvis: No abnormal focal liver lesion. No abnormality of the gallbladder. The spleen is normal. Normal noncontrast appearance of the pancreas. The adrenal glands are normal. Normal genitourinary activity. The bladder is decompressed and incompletely evaluated. Mild sigmoid colon diverticulosis. Mild physiologic uptake in the proximal small bowel. Atherosclerotic calcification of the abdominal aorta without aneurysm. Small fat containing umbilical hernia. Postoperative change from artificial urinary sphincter noted. Prior prostatectomy. No abnormal lymph nodes in the abdomen or pelvis. Bones: No acute or aggressive appearing osseous lesions. THIS IS AN ELECTRONICALLY VERIFIED FINAL REPORT 09/15/2024 8:48 AM - Electronically signed by Nilo Magana M.D. LB: JAMES Report ID: [id number] Reading Location: [place] [address] IMPRESSION: No abnormal lymphadenopathy in the abdomen or pelvis. No suspicious osseous lesions. Noncalcified pulmonary nodules measuring up to 3 mm show no abnormal uptake but are small and may be below PET resolution. Attention on follow-up imaging is recommended. Right thyroid nodule measuring 1.7 cm with a macrocalcification. See above. [facility] Thomas Meneses MD IM PET Final Result * (ABNORMAL) URINALYSIS REFLEX IF INDICATED BY ABNORMAL RESULTS (08/19/2024 9:08 AM BELLMAN) SPECIFIC GRAVITY 1.020 1.003 - 1.030 08/19/2024 4:46 PM BELLMAN [facility] URINE PH 5.0 5.0 - 9.0 08/19/2024 4:46 PM BELLMAN [facility] WBC ESTERASE Negative Negative 08/19/2024 4:[address] [facility] NITRITE Negative Negative 08/19/2024 4:[address] [facility] PROTEIN, RANDOM URINE 30 mg/dL(A) Negative 08/19/2024 4:[address] [facility] URINE GLUCOSE, QUAL Negative Negative 08/19/2024 4:46 PM BELLMAN [facility] URINE KETONES Negative Negative 08/19/2024 4:46 PM BELLMAN [facility] UROBILINOGEN Normal Normal mg/dL 08/19/2024 4:46 PM BELLMAN [facility] URINE BLOOD 10 /uL(A) Negative louie/ul 08/19/2024 4:46 PM BELLMAN [facility] URINALYSIS COLOR Yellow 08/19/20 4:46 PM BELLMAN [facility] URINALYSIS CLARITY Clear 08/19/2024 4:46 PM BELLMAN [facility] WBC (Urine) 0-5 Negative, 0-5 /hpf 08/19/2024 4:46 PM BELLMAN [facility] URINE RBC'S 3-5(A) Negative, 0-2 /hpf 08/19/2024 4:46 PM BELLMAN [facility] EPITHELIAL CELLS Moderate amount /lpf 08/19/2024 4:46 PM BELLMAN [facility] BACTERIA, URINE Few(A) Negative /hpf 08/19/2024 4:46 PM BELLMAN [facility] Urine URINE SPECIMEN COLLECTION, CLEAN CATCH / Unknown Non-Phlebotomy Collection / Unknown 08/19/2024 9:08 AM BELLMAN 08/19/2024 9:08 AM BELLMAN us Kami Gleason MD URINE ORDERABLES Final Result Performing Organization Address [facility]/State/[facility] Co de Phone Number [facility] [address] [place] [address] * CYSTOURETHROSCOPY (08/19/2024 8:30 AM BELLMAN) Narrative Kami Meneses MD - 08/19/2024 8:30 AM BELLMAN Kami Meneses MD 08/22/2024 10:16 PM Cystoscopy Procedure Note Date of Visit: 08/19/2024 Cystourethroscopy Derek Freeman is a 73 y.o. male who presents for cystoscopy. Indication(s): Urinary incontinence. Verbal and written consent was obtained. Risks including infection, bleeding, pain, urethral/bladder injury, non-diagnostic study, UTI discussed with patient who consents to procedure. Urinalysis: Urine dipstick shows negative nitrites. Procedure: The patient was positioned in the supine position on the procedure table. The patient was then placed in the supine position with all pressure points padded again. The lower abdomen, perineum, urethra were prepped in the usual fashion. Local anesthesia with 1% lidocaine jelly was administered transurethrally. A well lubricated 16 Kazakh flexible cystoscope was introduced transurethrally. During the 1st pass the sphincter was left activated to evaluate coaptation, the scope was then removed than the sphincter was deactivated and a scope was advanced again. Findings: Urethra: The urethra demonstrates no evidence of erosion. The cuff seemed to be coapted with some defect. There is likely some cuff atrophy. Just proximal to the sphincter cuff there is some urethral narrowing I was unable to traverse this with the scope. Plan: See progress note Kami Gleason MD [place] - SURGERY Final Result * POCT UA AUTOMATED W/O MICRO (08/19/2024 8:19 AM BELLMAN) Only the most recent of2 resultswithin the time period is included. POC UA SPECIFIC GRAVITY 1.015 URINE PH 5.0 5.0 - 9.0 POC URINE LEUKOCYTES Negative Negative Wilder/uL POC URINE NITRITE Negative Negative POC URINE PROTEIN Negative Negative mg/dL POC URINE GLUCOSE Norm Negative, Norm mg/dL POC URINE KETONE Negative Negative mg/dL POC URINE UROBILINOGEN Norm Norm, 0.2 E.U./dL (mg/dL), 1 E.U./dL (mg/dL) POC URINE BILIRUBIN Negative Negative mg/dL POC URINE BLOOD INSTRUMENT Negative Negative Louie/uL POC URINE COLOR Light Yellow POC URINE CLARITY Clear Urine 08/19/2024 8:19 AM BELLMAN Kami Gleason MD POINT OF CARE TESTING (MANUAL) Final Result * XR ESOPHAGRAM (08/12/2024 11:20 AM BELLMAN) Anatomical Region Laterality Modality GI, Abdomen N/A Digital Radiogra phy 08/12/2024 12:4 4 PM BELLMAN Impressions 08/12/2024 12:46 PM BELLMAN IMPRESSION: 1. Tiny sliding hiatal hernia. 2. Minimal gastroesophageal reflux. Narrative 08/12/2024 12:46 PM BELLMAN EXAM DESCRIPTION: XR ESOPHAGRAM REASON FOR STUDY: Dificulty swalloing, foods get stuck arround mid chest, sometimes patient regurgitates, epigstric pain, acid reflux with solids anf liquids , esphageal spasms, smal haital hernia. x 6 months RADIATION DOSE: Dose: The fluoroscopy unit does not record dose for reporting purposes. The fluoroscopy time was 1.7 minutes. TECHNIQUE: Under fluoroscopic guidance, patient ingested effervescent granules followed by thick and thin barium. COMPARISON: None FINDINGS: The swallowing function is grossly normal. There is grossly normal motility. No significant esophageal stricture. Tiny sliding hiatal hernia. Minimal gastroesophageal reflux was seen. THIS IS AN ELECTRONICALLY VERIFIED FINAL REPORT 08/12/2024 12:44 PM - Electronically signed by Doug Colmenares M.D. AG: JEROME Report ID: [id number] Reading Location: [id number] Procedure Note Doug Colmenares MD - 08/12/2024 EXAM DESCRIPTION: XR ESOPHAGRAM REASON FOR STUDY: Dificulty swalloing, foods get stuck arround mid chest, sometimes patient regurgitates, epigstric pain, acid reflux with solids anf liquids , esphageal spasms, smal haital hernia. x 6 months RADIATION DOSE: Dose: The fluoroscopy unit does not record dose for reporting purposes. The fluoroscopy time was 1.7 minutes. TECHNIQUE: Under fluoroscopic guidance, patient ingested effervescent granules followed by thick and thin barium. COMPARISON: None FINDINGS: The swallowing function is grossly normal. There is grossly normal motility. No significant esophageal stricture. Tiny sliding hiatal hernia. Minimal gastroesophageal reflux was seen. THIS IS AN ELECTRONICALLY VERIFIED FINAL REPORT 08/12/2024 12:44 PM - Electronically signed by Doug Colmenares M.D. AG: JEROME Report ID: [id number] Reading Location: [id number] IMPRESSION: 1. Tiny sliding hiatal hernia. 2. Minimal gastroesophageal reflux. Kaymarybeth Gordon SPRINKLER INSPECTOR, WAXER TENDER IMG FLUOROSCOPY O RDERABLES Final Result * COLONOSCOPY (05/24/2020) Brent Dickinson DO PROCEDURE/MINOR SURGICAL ORDERA BLES Final Result from Last 3 Months or Most Recently Relevant to Health Maintenance Insurance MEDICARE [facility] [place] [id number] [facility] Care Teams Vp Business Development Relationship Specialty Start Date End Date Fuentes Orellana MD [address] [address] PCP - General Family Medicine 07/06/15 Brent Dickinson DO [address] [address] Gastroenterology 06/27/16 Faviola Jiménez, SPRINKLER INSPECTOR, WAXER TENDER [address] [place] [address] Nurse Practitioner Advanced Practice Nurse 07/22/16 Shawnee Mckinney MD [address] [place] [address] Urologist Urology 06/07/19 Chicho Clayton MD [address] [facility] [address] [place] [address] Oncology 06/13/19 Lai Lambert APRN, WAXER TENDER [address] [place] [address] Nurse Practitioner Advanced Practice Nurse 02/10/23 Kami Meneses MD [address] [address] Consulting Physician Urology 06/16/23 Anette Bond MD [address] [place] [address] Consulting Physician Gastroenterology 12/25/22 Kay Gordon APRN, WAXER TENDER [address] [place] [address] Nurse Practitioner Advanced Practice Nurse 06/16/24 Kami Meneses MD [address] [address] Consulting Physician Urology 08/19/24
--- OUTSIDE RECORDS SUMMARY | 2024-10-11 14:35 | XMS_ITS | Encounter Summary ---
Author Organization [facility] Address [address] [facility] [address] [place] [id number] Care Team Providers Care Hydrogenation Still Operator Name Role Phone Fuentes Orellana MD Primary Care Provider + [phone] Fuentes Orellana MD Primary Care Provider + [phone] Itz Iyer MD Unavailable [phone] Lupillo Davenport MD Unavailable [phone] Lupillo Davenport MD Unavailable [phone] Shawnee Mckinney MD Unavailable [phone] Chicho Clayton MD Unavailable Newton Weeks MD Unavailable [phone] Maria Guadalupe Palacios RN Unavailable Unava ilable Lupillo Davenport MD Unavailable [phone] Itz Iyer MD Unavailable [phone] Itz Iyer MD Unavailable [phone] Itz Iyer MD Unavailable [phone] Itz Iyer MD Unavailable [phone] Itz Iyer MD Unavailable [phone] Itz Iyer MD Unavailable [phone] Danis Meza SODA CLERK Unavailable [phone] Rater, Antonette SODA CLERK Unavailable Aniceto Foley MD Unavailable [phone] Encounter Details Date Type Department Care Team (Late st Contact Info) Description 11/18/2016 Orders Only [facility] Provider, MD [facility] [place] [address] Social History Tobacco Use Types Packs/Day Years Used Date Smoking Tobacco: Never Assessed Sex and Gender Information Value Date Recorded Sex Assigned at Not on file 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 Historical Provider [facility] Final Result documented in this encounter Visit Diagnoses Not on filedocumented in this encounter Care Teams Hydrogenation Still Operator Relationship Specialty Start Date End Date Fuentes Orellana MD PCP - General 11/28/16 Fuentes Orellana MD PCP - General 07/14/07 11/27/16 Itz Iyer MD [address] [facility] [address] [place] [id number] Consulting Physician Urology 05/31/18 Lupillo Davenport MD [address] [place] [address] Referring Physician Radiation Oncology 05/31/18 Lupillo Davenport MD [address] [place] [address] Referring Physician Radiation Oncology 05/31/18 Shawnee Mckinney MD [address] [facility] [address] [place] [address] Referring Physician Urology 06/03/18 Chicho Clayton MD [address] [facility] [address] [place] [address] Medical Oncologist/Hematologis t Medical Oncology 06/07/18 Newton Weeks MD [address] [facility] [address] [place] [address] Referring Physician Radiation Oncology 06/07/18 Maria Guadalupe Palacios, RN Registered Nurse 06/10/18 Lupillo Davenport MD [address] [place] [address] Referring Physician Radiation Oncology 06/16/18 Itz Iyer MD [address] [address] Consulting Physician Urology 06/17/18 06/17/18 Itz Iyer MD [address] [address] Consulting Physician Urology 06/18/18 06/18/18 Itz Iyer MD [address] [place] [address] Consulting Physician Urology 06/18/18 06/18/18 Itz Iyer MD [address] [place] [address] Consulting Physician Urology 06/22/18 06/22/18 Itz Iyer MD [address] [place] [address] Consulting Physician Urology 07/01/18 07/01/18 Itz Iyer MD [address] [place] [address] Consulting Physician Urology 07/06/18 07/06/18 Danis Meza NP [address] [place] [address] Nurse Practitioner Urology 10/06/22 Antonette Owens NP [address] [place] [address] Nurse Practitioner Cardiovascular Disease 10/06/22 Aniceto Foley MD [phone] [place] [address] Surgeon Vascular Surgery 10/31/22 documented as of this encounter
--- OUTSIDE RECORDS SUMMARY | 2024-10-11 14:35 | XMS_ITS | Referral Summary ---
Author Organization [facility] [address] Address [address] [place] [address] Care Team Providers Care Diamond Driller Helper Name Role Phone Fuentes Orellana MD Primary Care Provider Itz Iyer MD Unavailable [phone] Shawnee Mckinney MD Unavailable [phone] Chicho Clayton MD Unavailable Maria Guadalupe Palacios RN Unavailable Unava ilable Lupillo Davenport MD Unavailable [phone] Danis Meza HEADING PINNER Unavailable Antonette Owens NP Unavailable Aniceto Foley MD Unavailable [phone] Encounters Date Type Department Care Team Description 09/27/2024 11:00 AM ENERGY EFFICIENCY FINANCE MANAGER Lab [facility] - Lab Collection [address] [facility] Floor 6 [place] [address] Prostate cancer (HCC) 09/27/2024 11:45 AM ENERGY EFFICIENCY FINANCE MANAGER Office Visit [facility] Oncology [facility] [facility] Floor 5 [place] [address] Chicho Clayton MD Prostate cancer (HCC) (Primary Dx) 09/27/2024 10:45 AM ENERGY EFFICIENCY FINANCE MANAGER Lab [facility] Oncology Lab [address] [facility] Floor 6 [place] [address] Prostate cancer (HCC) 09/09/2024 Orders Only [facility] Surgery [address] [facility] 8th [place] [address] [place] [address] Aniceto Foley MD PVD (peripheral vascular disease) (HCC) (Primary Dx) 09/07/2024 10:00 AM ENERGY EFFICIENCY FINANCE MANAGER Office Visit [facility] Surgery [address] [facility] 8th [place] [address] [place] [address] Aniceto Foley MD Atherosclerosis of [place] arteries of extremities with intermittent claudication, bilateral legs (HCC) (Primary Dx) 09/07/2024 8:45 AM ENERGY EFFICIENCY FINANCE MANAGER Ancillary Procedure [facility] Vascular Lab at the [facility] [address] [facility] 8th [place] [address] [place] [address] Atherosclerosis of [place] arteries of extremities with intermittent claudication, bilateral legs (HCC) 08/11/2024 Telephone [facility] [address] [place] [address] [place] [phone] Kay Ward NP 08/09/2024 11:30 AM ENERGY EFFICIENCY FINANCE MANAGER Office Visit [facility] [address] [place] [address] [address] [place] [address] Kay Ward NP Orthostatic hypotension (Primary Dx); Coronary artery disease involving [place] coronary artery of [place] heart without angina pectoris; LVH (left ventricular hypertrophy); Chronic kidney disease, unspecified CKD stage; Thyroid nodule; PVD (peripheral vascular disease) (HCC) 07/25/2024 Telephone [facility] Surgery [address] [facility] Floor 1 [place] [address] Aniceto Foley MD 07/22/2024 Telephone [facility] Surgery [address] [facility] Floor 1 [place] [address] Aniceto Foley MD 07/19/2024 Orders Only [facility] [address] [facility] [address] [place] [phone] Mariangel Palmer MD 07/15/2024 Orders Only [facility] [address] [place] [address] [address] [place] [phone] Caro Roper NP 07/15/2024 Telephone [facility] Surgery [address] [facility] Floor 1 [place] [address] Aniceto Foley MD from Last 3 Months Allergies No known active allergies Medications aspirin 81 mg chewable tablet chew 1 tablet by oral route every day 0 [address] (PROTONIX) 40 mg EC tablet take 1 tablet by oral route 2 times every day 0 0 7 Active ACCU-CHEK DANNY PLUS TEST STRP strip U UTD BID FOR DIABETES MELLITUS 1 9 Active ACCU-CHEK DANNY PLUS METER misc U UTD FOR NEW ONSET DIABETES MELLITUS 0 9 Active ACCU-CHEK SOFTCLIX LANCETS lancets USE TO TEST BID 0 9 Active ALPRAZolam (XANAX) 0.5 mg tablet Take 1 tablet (0.5 mg total) by mouth 3 (three) times a day as needed for anxiety 9 Active allopurinoL (ZYLOPRIM) 300 mg tabletIndicatio ns:prevention of acute gout attack Take 1 tablet (300 mg total) by mouth every morning 1 Active acetaminophen (TYLENOL) 325 mg tabletIndicatio ns:Pain Take 2 tablets (650 mg total) by mouth every 4 (four) hours as needed for pain 30 tablet 3 Active Additional Information Patient not taking.Reported on 09/07/2024 senna-docusate (PERICOLACE) 8.6-50 mg Take 1 tablet by mouth daily 10 tablet 3 Active Additional Information Patient not taking.Reported on 09/07/2024 diphenoxylate-a tropine (LOMOTIL) 2.5-0.025 mg per tablet Take 2 tablets by mouth 4 (four) times a day 3 Active Brilinta 60 mg tabletIndicatio ns:Thrombosis Prevention after PCI Take 1 tablet (60 mg total) by mouth 2 (two) times a day 60 tablet 11 3 Active rosuvastatin (CRESTOR) 40 mg tablet Take 1 tablet (40 mg total) by mouth daily 30 tablet 11 4 Active amLODIPine (NORVASC) 5 mg tablet Take 1 tablet (5 mg total) by mouth daily 90 tablet 3 4 Active Additional Information Patient taking differently: 2.5 mgoral Daily, Reported on 09/07/2024 Kerendia 10 mg tablet Take 1 tablet by mouth daily 4 Active telmisartan (MICARDIS) 80 mg tablet Take 1 tablet (80 mg total) by mouth daily 30 tablet 11 4 05/26/20 25 Active Tradjenta 5 mg tablet Take 1 tablet (5 mg total) by mouth cardiopulmonary supervisor before breakfast 4 Active nitroglycerin (NITROSTAT) 0.3 mg SL tabletIndicatio ns:acute episode of anginal pain Place 1 tablet (0.3 mg total) under the tongue every 5 (five) minutes as needed for chest pain 25 tablet 3 4 08/09/20 25 Active metoprolol tartrate (LOPRESSOR) 25 mg immediate release tabletIndicatio ns:Coronary artery disease involving [place] coronary artery of [place] heart without angina pectoris Take 1 tablet (25 mg total) by mouth 2 (two) times a day 90 tablet 3 4 Active chlorthalidone (HYGROTON) 25 mg tablet TAKE 1 TABLET(25 MG) BY MOUTH DAILY 90 tablet 3 5 Active clotrimazole-be tamethasone (LOTRISONE) cream Apply 1 Application topically 2 (two) times a day 5 Active Active Problems Problem Noted Date Diagnosed Date Penile pain 12/04/2022 Assessment & Plan (12/04/2022 3:53 PM CDT): -Reporting sharp, stabbing pain on left side of penis often with voiding (description sounds like possible spasms???). Does have lingering pain post void. Reporting AUS working. -Had cysto 08/2022 which showed no erosion of AUS noted. -Physical exam was unremarkable. -Unclear cause of his pain. Will try spasms medication to see if this helps. He will be referred back to Dr. Johnson for follow up. PLAN: -Trial of Myrbetriq. He will let me know if medication is not covered and if it is helping. -Follow up with Dr. Johnson. Carotid artery disease 10/30/2022 Stenosis of right carotid artery 10/21/2022 Overview (10/21/2022): Added automatically from request for surgery [id number] Assessment & Plan (10/30/2022 2:56 PM ENERGY EFFICIENCY FINANCE MANAGER): - OR 3/2 for planned R CEA - OU status, Q2h NV/VS monitoring - Bedrest today, OOB/PT POD #1 - SBP goal 100-160, nicardipine for elevated BP - Continue aspirin and statin - Plan to stager home medications and resume overnight Atherosclerosis of [place] ar teries of extremities with intermittent claudication, bilateral legs 06/03/2022 Melanoma 01/10/2021 Anxiety 01/10/2021 DM (diabetes mellitus) 01/10/2021 Assessment & Plan (10/30/2022 9:59 AM ENERGY EFFICIENCY FINANCE MANAGER): - A1c 7.6% 10/2022 - SSI while inpatient - CC diet when eating Elevated left ventricular end-diastolic pressure (LVEDP) 11/15/2019 Encounter for surgical after care following surgery of circulatory system 05/20/2019 Prostate cancer 09/10/2018 Assessment & Plan (10/27/2018 9:53 AM ENERGY EFFICIENCY FINANCE MANAGER): Follows with urology, has his PSA monitored it is increasing, but still WNL 1.4 Assessment & Plan (09/22/2018 11:35 AM ENERGY EFFICIENCY FINANCE MANAGER): Has close follow up with his oncologist. His PSA was slightly elevated on last check. Hyperlipidemia 09/21/2017 Assessment & Plan (06/30/2018 9:38 AM CDT): His last lipid panel was within acceptable range; he will continue on a high intensity statin. Assessment & Plan (09/21/2017 11:34 AM ENERGY EFFICIENCY FINANCE MANAGER): Continue Lipitor 40 mg daily. Essential hypertension 07/20/2017 Assessment & Plan (10/30/2022 2:57 PM ENERGY EFFICIENCY FINANCE MANAGER): - Tight BP goals post-procedure - Continue home medications as indicated by BP goals as above, staggering overnight for gentle BP control Assessment & Plan (10/27/2018 9:54 AM ENERGY EFFICIENCY FINANCE MANAGER): Hypertension is unchanged. Dietary sodium restriction. Blood pressure will be reassessed in 4 weeks. Assessment & Plan (09/22/2018 11:38 AM ENERGY EFFICIENCY FINANCE MANAGER): Hypertension remains elevated. He is increasing his intake of water, less soda. Regular aerobic exercise. He is in physicial therapy. Blood pressure will be reassessed in 4 weeks. he will continue his amlodipine 10 mg dailyl. He was titrated up to lisinopril 20 mg BID on 09/17. He will continue carvedilol 12.5 mg po bid. He is on HCTZ 25 mg daily. He would like to decrease this to half due to dizziness with position changes and dehydration. Encouraged oral intake of water, he just stopped drinking soda this week. We will check NT PRO BNP , BMP , troponin today Assessment & Plan (09/21/2017 11:33 AM ENERGY EFFICIENCY FINANCE MANAGER): Blood pressure is well controlled today. Last visit we added HCTZ 12.5 mg daily. Continue current medications Assessment & Plan (08/10/2017 11:26 AM ENERGY EFFICIENCY FINANCE MANAGER): Blood pressure is not controlled. Add hydrochlorothiazide 12.5 mg p.o. daily. He is compliant with medications but always add salt to food which I advised him not to do that. Assessment & Plan (07/20/2017 9:19 AM ENERGY EFFICIENCY FINANCE MANAGER): Blood pressure remains uncontrolled. We will order renal Doppler ultrasound to rule out renal artery stenosis given the fact that he has peripheral vascular disease and coronary artery disease. I will increase amlodipine from 5-10 mg p.o. daily. If that does not control the blood pressure we will add hydrochlorothiazide 12.5 mg p.o. Daily. Coronary artery disease invo lving [place] coronary artery of [place] heart without angina pectoris 07/20/2017 Assessment & Plan (10/30/2022 9:58 AM ENERGY EFFICIENCY FINANCE MANAGER): - Continue home medications as able - Maintained on Brilinta as an outpatient; held 1 week prior to OR - Will discuss with surgery team when to safely resume post-procedure Assessment & Plan (10/27/2018 9:59 AM ENERGY EFFICIENCY FINANCE MANAGER): Coronary artery disease is improving with lifestyle modifications. Continue current treatment regimen. Cardiac status will be reassessed in 3 months. No chest pain. Minimal SOB. Continue asa, statin, brilinta Assessment & Plan (09/22/2018 11:36 AM ENERGY EFFICIENCY FINANCE MANAGER): Coronary artery disease is unchanged. Regular aerobic exercise. Cardiac status will be reassessed in 3 months. s/p RICHARD to Continue brillinta 60 mg bid Asa 81 daily Atorvastatin 40 mg Assessment & Plan (06/30/2018 9:39 AM CDT): He continues on ASA 81mg, high intensity statin, and ticagrelor 60mg BID. He has a known myocardial bridge and is on Imdur and BB. Assessment & Plan (09/21/2017 11:33 AM ENERGY EFFICIENCY FINANCE MANAGER): Continue aspirin, Brilinta, Toprol XL and atorvastatin. Assessment & Plan (08/10/2017 11:27 AM ENERGY EFFICIENCY FINANCE MANAGER): Continue Brilinta and aspirin. Asymptomatic. Assessment & Plan (07/20/2017 9:19 AM ENERGY EFFICIENCY FINANCE MANAGER): Continue aspirin, Brilinta, Lipitor , metoprolol PVD (peripheral vascular disease) 07/20/2017 Assessment & Plan (10/27/2018 9:21 AM ENERGY EFFICIENCY FINANCE MANAGER): S/P bilateral ALVA angioplasty; right EIA angioplasty/stent 11/21/14. S/P aortoiliac angioplasty/stent 05/28/09. Continues on asa, statin and brilinta Assessment & Plan (09/21/2017 11:34 AM ENERGY EFFICIENCY FINANCE MANAGER): He follows up with vascular surgery at [facility] Assessment & Plan (08/10/2017 11:27 AM ENERGY EFFICIENCY FINANCE MANAGER): Renal ultrasound suggest more than 60% stenosis in the right renal artery and infrarenal stenosis 50-70%. He follows up with Dr. Foley from vascular surgery at [facility] Assessment & Plan (07/20/2017 9:20 AM ENERGY EFFICIENCY FINANCE MANAGER): Patient will follow up with Dr. Foley from vascular surgery. He does have some claudication when he walks. Intrinsic urethral sphincter deficiency 06/08/20 15 Resolved Problems Problem Noted Date Diagnosed Date Resolved Date Dizzinesses 10/27/2018 02/09/2019 Assessment & Plan (10/27/2018 10:17 AM ENERGY EFFICIENCY FINANCE MANAGER): Persistent dizziness. Has stopped caffeine intake. Has increased oral water. Have decreased diuretic. Have titrated his BP meds. Its is positional with bending over to tie shoes. discussed with Dr. Pickard, will place ENT referral. Dyspnea 06/30/2018 02/09/2019 Assessment & Plan (06/30/2018 9:33 AM CDT): He has intermittent dyspnea that is not clearly related to exertion. This may be related to periods of hypertension in the s/o diastolic dysfunction. No clear signs/symptoms to support angina, pulmonary, or pulmonary vascular disease. - we will check NTproBNP, troponin, CRP today - we will check a TTE - we will improve BP control as outlined below Stenosis due to any device, implant or graft 6 02/09/2019 Atherosclerosis of [place] artery of extremity 04/15/20 16 02/09/2019 Assessment & Plan (09/22/2018 11:26 AM ENERGY EFFICIENCY FINANCE MANAGER): 80% circumflex s/p RICHARD. Moderate 30 % LAD with bridging Impotence of organic origin 09/18/2015 02/09/2019 Urinary tract infection 01/18/201501/29 Incontinence 01/18/2015 02/09/2019 Stricture, urethra 07/31/2011 9 Overview (12/10/2017): Description: Dilation 06/09/11 Nocturia 11/28/2010 02/09/2019 Hypertension 05/16/2009 02/09/2019 Assessment & Plan (10/27/2018 10:11 AM ENERGY EFFICIENCY FINANCE MANAGER): Hypertension is {improving/stable/worsenin}. {plan; hypertension for POC:[id number]} Blood pressure will be reassessed {plan; follow-up 2 weeks/4weeks/3months:[id number]}. Increase amolodipine to 10 mg Continue all other meds same dose. Recommend half tablet of HCTZ (12.5 mg). Assessment & Plan (06/30/2018 9:38 AM CDT): His blood pressure remains elevated despite 4 antihypertensives. This may be related to renal artery stenosis, which was seen on ultrasound in 07/2017. Heavy alcohol use may also be contributing; we discussed this but he is not interested in cutting back. - we will repeat a renal ultrasound - we will increase HCTZ to 25mg daily - we will change metoprolol succinate to carvedilol 12.5mg BID - he will continue on amlodipine 10mg, lisinopril 40mg, Imdur 30mg Peripheral vascular disease 05/16/2009 02/09/2019 Assessment & Plan (06/30/2018 9:39 AM CDT): He is on ASA and ticagrelor, and follows with Dr. Foley from Vascular Surgery. Hypercholesterolemia 05/16/2009 019 Immunizations Name Administration Dates Next Due Adenovirus 05/03/2018 Influenza, Quad, Adjuvantated, Intramuscular Influenza, Quadrivalent, Kaia l Culture-based MDCK, Preservative Free, Antibiotic Free, Intramuscular 05/31/2019,06/15/2018 Influenza, Quadrivalent, Hig h Dose, Preservative Free, Intrr 06/25/2021 Influenza, Unspecified 05/31/2022,11/22/2014 Pfizer SARS-CoV-2 Monovalent Vaccination (12+ Yrs) PURPLE 11/25/2020,11/01/2020 Pneumococcal Conjugate, Unspecified 11/22/2014 Pneumococcal Polysaccharide PPV23 11/22/2014 Tdap 10/07/2020 Social History Tobacco Use Types Packs/Day Years Used Date Smoking Tobacco: Former Cigarettes 1.5 19 1 966 - 1985 Passive Smoke Exposure: Past Smokeless Tobacco: Never Tobacco Cessation:Counseling Given: Not Answered Alcohol Use Standard Drinks/Week Comments Yes 12 (1 standard drink = 0.6 oz pu re alcohol) AUDIT-C Answer Date Recorded Q1: How often do you have a drink containing alc ohol? 2-3 times a week 10/30/2022 Q2: How many drinks containi ng alcohol do you have on a typical day when you are drinking? 3 or 4 10/30/2022 Q3: How often do you have si x or more drinks on one occasion? Never 10/30/2022 Personal Safety Answer Date Recorded Have you ever been in or are you currently in a harmful physical or emotional relationship or is someone making you feel afraid or unsafe? Denies 12/02/2022 Sex and Gender Information Value Date Recorded Sex Assigned at Not on file Legal Sex Male 12:32 AM ENERGY EFFICIENCY FINANCE MANAGER Gender Identity Not on file Sexual Orientation Choose not to disclose 2018 8:58 AM CDT Occupation Industry Job 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 Date retired Not on file Not on file Not on file Last Filed Vital Signs Vital Sign Reading Time Taken Comments Blood Pressure 109/54 09/27/2024 11:01 AM ENERGY EFFICIENCY FINANCE MANAGER Pulse 61 09/27/2024 11:01 AM ENERGY EFFICIENCY FINANCE MANAGER Temperature 36.7 C (98.1 F) 09/27/2024 11:01 AM ENERGY EFFICIENCY FINANCE MANAGER Respiratory Rate 18 09/27/2024 11:01 AM ENERGY EFFICIENCY FINANCE MANAGER Oxygen Saturation 96% 09/27/2024 11:01 AM ENERGY EFFICIENCY FINANCE MANAGER Inhaled Oxygen Concentration - - Weight 73.5 kg (162 lb) 09/27/2024 11:01 AM ENERGY EFFICIENCY FINANCE MANAGER Height 166.6 cm (5' 5.59 ) 09/27/2024 11:[address] Body Mass Index 26.47 09/27/2024 11:01 AM ENERGY EFFICIENCY FINANCE MANAGER Plan of Treatment Not on file Medical Devices Implanted Type Area Student Accounts Manager Device Identifier Shelf Expiration Date Model / Serial / Lot Other - See Comments-2014 Implanted:05/01 (Quantity not on file) Other - see comments Bladder Description:Bladder control Stent Stent N/A: Heart Stent Stent Bilateral: Groin Description:Per pt 4-5 stent s Stent Right: Eye Artificail Urinary Sphincter-2014 Implanted:03/2015 by Shawnee Mckinney MD (Quantity not on file) N/A: Urethra Description:05/08/2019 Placeme nt of artificial urinary sphincter with a 3.5 cm cuff and 61 to 70 cm pressure-regulating balloon. [employer] Vascu-Guard 8x.8cm Peripheral Patch Vascular Bovine Pericardium [id number] - [id number] Implanted:Qty: 1 on 10/30/2022 by Aniceto Foley MD at [facility] Right: Carotid [employer] [id number] 07/09/2023 [id number] / / [id number] Procedures Procedure Name Priority Date/Time Associated Diagnosis Comments EGFR Routine 09/27/2024 10:40 AM ENERGY EFFICIENCY FINANCE MANAGER Prostate cancer (HCC) DIFFERENTIAL AUTO Routine 09/27/2024 10: 40 AM ENERGY EFFICIENCY FINANCE MANAGER Prostate cancer (HCC) CBC WITH AUTO DIFFERENTIAL Routine 09/27/2024 10:40 AM ENERGY EFFICIENCY FINANCE MANAGER Prostate cancer (HCC) COMPREHENSIVE METABOLIC PANEL Routine 09/27/2024 10:40 AM ENERGY EFFICIENCY FINANCE MANAGER Prostate cancer (HCC) LACTATE DEHYDROGENASE Routine 09/27/2024 10:40 AM ENERGY EFFICIENCY FINANCE MANAGER Prostate cancer (HCC) PSA DIAGNOSTIC Routine 09/27/2024 10:40 AM ENERGY EFFICIENCY FINANCE MANAGER Prostate cancer (HCC) US LOWER EXTREMITY TREADMILL TESTING Schedule Routine, Read Routine (OP Routine) 09/07/2024 9:04 AM ENERGY EFFICIENCY FINANCE MANAGER Atherosclerosis of [place] arteries of extremities with intermittent claudication, bilateral legs (HCC) CARDIOLOGY DOCUMENT SCAN Routine 07/15/2024 4:58 PM ENERGY EFFICIENCY FINANCE MANAGER CARDIOLOGY DOCUMENT SCAN Routine 07/15/2024 4:55 PM ENERGY EFFICIENCY FINANCE MANAGER CARDIOLOGY DOCUMENT SCAN Routine 07/14/2024 4:12 PM ENERGY EFFICIENCY FINANCE MANAGER CARDIOLOGY DOCUMENT SCAN Routine 07/13/2024 4:10 PM ENERGY EFFICIENCY FINANCE MANAGER CARDIOLOGY DOCUMENT SCAN Routine 07/11/2024 4:08 PM ENERGY EFFICIENCY FINANCE MANAGER LIPID PANEL Routine 03/22/2024 10:23 AM CDT Coronary artery disease involving [place] coronary artery of [place] heart without angina pectoris CTA ABDOMINAL AORTA AND BILATERAL ILIOFEMORAL RUNOFF Schedule Routine, Read Routine (OP Routine) 12/15/2023 1:56 PM CDT PVD (peripheral vascular disease) (HCC) HEMOGLOBIN A1C Routine 09/22/2023 12:19 PM ENERGY EFFICIENCY FINANCE MANAGER Prostate cancer (HCC) from Last 3 Months or Most Recently Relevant to Health Maintenance Results * (ABNORMAL) eGFR (09/27/2024 10:40 AM ENERGY EFFICIENCY FINANCE MANAGER) eGFR 42(L) >=60 mL/min/1. 73 m2 Comment: Interpretive Data Reference Interval Normal >/= 90 mL/min/1.73m2 Mildly decreased* 60 - 89 mL/min/1.73m2 Mildly to moderately decreased 45 - 59 mL/min/1.73m2 Moderately to severely decreased 30 - 44 mL/min/1.73m2 Severely decreased 15 - 29 mL/min/1.73m2 Kidney Failure < 15 mL/min/1.73m2 *Relative to young adult level Estimated glomerular filtration rate is determined by the 2020 CKD-EPI equation recommended by the National Kidney Foundation (A Unifying Approach to GFR Estimation: Recommendations of the NKF-ASK Task Force on Reassessing the Inclusion of Race in Diagnosing Kidney Disease, JASN 2020). The CKD-EPI equation should not be used for patients with unstable renal function and has not been validated in children and those over 70. Current interpretive data was last reviewed 2021. Blood 09/27/2024 10:4 0 AM ENERGY EFFICIENCY FINANCE MANAGER 09/27/2024 10:57 AM ENERGY EFFICIENCY FINANCE MANAGER us Chicho Clayton MD LAB BLOOD ORDERABLES Final Resul t DARIN BRYSON [facility] Department [place] [address] * (ABNORMAL) Differential, auto (09/27/2024 10:40 AM ENERGY EFFICIENCY FINANCE MANAGER) Neutrophil abs 7.8(H) 1.5 - 6.5 K/cumm Comment:Testing performed by : [facility], [address] [place] [phone] Lymphocyte abs 1.5 0.8 - 3.3 K/cumm [facility] Comment:Testing performed by : [facility], [address] [place] [phone] Monocyte abs 0.6 0.2 - 0.8 K/cumm [facility] Comment:Testing performed by : [facility], [address] [place] [phone] Eosinophil abs 0.1 0.0 - 0.5 K/cumm [facility] Comment:Testing performed by : [facility], [address] [place] [phone] Basophil abs 0.1 0.0 - 0.1 K/cumm [facility] Comment:Testing performed by : [facility], [address] [place] [phone] Neutrophil pct 77.5 % [facility] Comment: Interpretive Data Percent cell count reference ranges are not reported, since discordance with absolute values may lead to misinterpretation of CBC data. Current Interpretive Data was last revised on 2017. Testing performed by: [facility], [address] [place] [phone] Lymphocyte pct 14.9 % [facility] Comment: Interpretive Data Percent cell count reference ranges are not reported, since discordance with absolute values may lead to misinterpretation of CBC data. Current Interpretive Data was last revised on 2017. Testing performed by: [facility], [address] [place] [phone] Monocyte pct 5.7 % [facility] Comment: Interpretive Data Percent cell count reference ranges are not reported, since discordance with absolute values may lead to misinterpretation of CBC data. Current Interpretive Data was last revised on 2017. Testing performed by: [facility], [address] [place] [phone] Eosinophil pct 1.3 % [facility] Comment: Interpretive Data Percent cell count reference ranges are not reported, since discordance with absolute values may lead to misinterpretation of CBC data. Current Interpretive Data was last revised on 2017. Testing performed by: [facility], [address] [place] [phone] Basophil pct 0.6 % CERNAF[facility] Comment: Interpretive Data Percent cell count reference ranges are not reported, since discordance with absolute values may lead to misinterpretation of CBC data. Current Interpretive Data was last revised on 2017. Testing performed by: [facility], [address] [place] [id number] Blood 09/27/2024 10:4 0 AM ENERGY EFFICIENCY FINANCE MANAGER 09/27/2024 10:56 AM ENERGY EFFICIENCY FINANCE MANAGER us Chicho Clayton MD LAB BLOOD ORDERABLES Final Resul t DARIN BRYSON [facility] Department [place] [address] * (ABNORMAL) CBC with auto differential (09/27/2024 10:40 AM ENERGY EFFICIENCY FINANCE MANAGER) WBC 10.0(H) 3.8 - 9.9 K/cumm Comment:Testing performed by : [facility], [address] [place] [address] Hgb 10.5(L) 13.0 - 17.5 g/dL DARIN BRYSON Comment:Testing performed by : [facility], [address] [place] [address] Hct 30.8(L) 38.9 - 50.3 % DARIN BRYSON Comment:Testing performed by : [facility], [address] [place] [address] Plt 206 150 - 400 K/cumm CERNAFISA BRYSON Comment:Testing performed by : [facility], [address] [place] [address] MPV 8.9 6.8 - 10.4 fL DARIN BRYSON Comment:Testing performed by : [facility], [address] [place] [address] RBC 3.33(L) 4.30 - 5.80 M/cumm CERNAFISA [facility] Comment:Testing performed by : [facility], [address] [place], [place] [phone] MCV 92.4 81.3 - 96.4 fL DARIN BRYSON Comment:Testing performed by : [facility], [address] [place], [place] [phone] MCH 31.6 27.1 - 33.3 pg DARIN [facility] Comment:Testing performed by : [facility], [address] [place], [place] [phone] MCHC 34.2 32.3 - 35.7 g/dL DARIN [facility] Comment:Testing performed by : [facility], [address] [place], [place] [phone] RDW CV 14.0 11.1 - 14.9 % DARIN [facility] Comment:Testing performed by : [facility], [address] [place], [place] [phone] NRBC abs 0.00 0.00 - 0.01 K/cumm DARIN [facility] Comment:Testing performed by : [facility], [address] [place], [place] [phone] Blood 09/27/2024 10:4 0 AM ENERGY EFFICIENCY FINANCE MANAGER 09/27/2024 10:56 AM ENERGY EFFICIENCY FINANCE MANAGER us Chicho Clayton MD LAB BLOOD ORDERABLES Final Resul t [facility] Department [place] [address] * PSA diagnostic (09/27/2024 10:40 AM ENERGY EFFICIENCY FINANCE MANAGER) PSA-Total 5.26 <=6.20 ng/mL Comment: Interpretive Data AGE SEX REFERENCE INTERVAL 0 minutes-150 years Female None 0 minutes-49 years Male None 50-59 years Male 0-3.90 60-69 years Male 0-5.40 70-79 years Male 0-6.20 80-150 years Male 0-6.20 The Geeta PSA Total assay procedure was used. Results from different manufacturers or methods may not be comparable. Serial testing should be performed using the same method. Current interpretive data last revised 22. Blood 09/27/2024 10:4 0 AM ENERGY EFFICIENCY FINANCE MANAGER 09/27/2024 10:57 AM ENERGY EFFICIENCY FINANCE MANAGER us Chicho Clayton MD LAB BLOOD ORDERABLES Final Resul t Performing Organization Address [facility] de Phone Number [facility] [place] [address] * Lactate dehydrogenase (LD) (09/27/2024 10:40 AM ENERGY EFFICIENCY FINANCE MANAGER) Lactate dehydrogenase (LDH) 121 100 - 250 Units/L Blood 09/27/2024 10:4 0 AM ENERGY EFFICIENCY FINANCE MANAGER 09/27/2024 10:57 AM ENERGY EFFICIENCY FINANCE MANAGER us Chicho Clayton MD LAB BLOOD ORDERABLES Final Resul t Performing Organization Address [facility] [place] [address] * (ABNORMAL) Comprehensive metabolic panel (09/27/2024 10:40 AM ENERGY EFFICIENCY FINANCE MANAGER) Pathologist [facility] Sodium 142 135 - 145 mmol/L Potassium, pl 4.1 3.3 - 4.9 mmol/L [facility] Chloride 108 97 - 110 mmol/L [facility] CO2 29 22 - 32 mmol/L [facility] Anion gap 5 2 - 15 mmol/L [facility] BUN 32(H) 6 - 25 mg/dL [facility] Creatinine 1.68(H) 0.80 - 1.30 mg/dL [facility] Glucose 182 70 - 199 mg/dL [facility] Comment: Interpretive Data Fasting glucose >/= 126 mg/dl is diagnostic for diabetes. Fasting is defined as no caloric intake for at least 8 hours. Fasting glucose between 100 mg/dl to 125 mg/dl is diagnostic of prediabetes. In a patient with classic symptoms of hyperglycemia or hyperglycemic crisis, a random glucose >/= 200 mg/dl is diagnostic for diabetes. In the absence of unequivocal hyperglycemia, results should be confirmed by repeat testing. The classification and Diagnosis of Diabetes Diabetes Care 2021; 46: S19-S40. Current interpretive data was last revised 2022. Calcium 10.4(H) 8.5 - 10.3 mg/dL CERNER [facility] Bilirubin, total 0.2 0.1 - 1.2 mg/dL [facility] Protein, pl 6.9 6.5 - 8.5 g/dL [facility] Albumin 3.7 3.5 - 5.0 g/dL CERNER [facility] Alk phos 102 40 - 130 Units/L [facility] ALT 14 7 - 55 Units/L [facility] AST 17 10 - 50 Units/L CERNER [facility] Blood 09/27/2024 10:4 0 AM ENERGY EFFICIENCY FINANCE MANAGER 09/27/2024 10:57 AM ENERGY EFFICIENCY FINANCE MANAGER us Chicho Clayton MD LAB BLOOD ORDERABLES Final Resul t [facility] Department of Laboratories [place] [phone] * US Lower Extremity Treadmill Testing (09/07/2024 9:04 AM ENERGY EFFICIENCY FINANCE MANAGER) LV EF % CONS SCIMAGE Anatomical Region Laterality Modality Vascular Ultrasound 09/07/2024 8:25 AM ENERGY EFFICIENCY FINANCE MANAGER Narrative 09/07/2024 9:05 AM ENERGY EFFICIENCY FINANCE MANAGER [facility] - Department of Vascular Surgery, Vascular Laboratory [address] [place] [id number] Lower Extremity Arterial Doppler Report Patient Name: RIVERA FREEMAN : 1950 Study Date: 09/07/2024 8:25:00 AM Gender: M Tech: Ashlie Washington [facility] Location: [facility] Ref Provider: ANICETO FOLEY Quality: Adequate Order Provider: ANICETO FOLEY PROCEDURES: Arterial Report: Bilateral lower extremity arterial Doppler exam at rest. INDICATIONS: I70.213 Atherosclerosis of [place] arteries of extremities with intermittent claudication, bilateral legs. MEASUREMENTS: Right Value Units Left Value Units Rt Brachial Pressure 159 mmHg Lt Brachial Pressure 152 mmHg Rt [employer] Pressure 52 mmHg Lt [employer] Pressure 73 mmHg Rt DPA Pressure 41 mmHg Lt DPA Pressure 75 mmHg Rt 1st Digit Pressure 29 mmHg Lt 1st Digit Pressure 45 mmHg Rt PT TORREY Resting 0.33 Lt PT TORREY Resting 0.46 Rt AT TORREY Resting 0.26 Lt AT TORREY Resting 0.47 Rt Digit/Arm Index 0.18 Lt Digit/Arm Index 0.28 Right Value Units Left Value Units - FINDINGS: Performing Community Assistant: Ashlie Washington RVT. Right Common Femoral Artery Analysis: The common femoral artery waveform is multiphasic. Right Popliteal Artery Analysis: The popliteal waveform is monophasic. Right Posterior Tibial Artery Analysis: The posterior tibial waveform is monophasic. Right Anterior Tibial Artery Analysis: The anterior tibial waveform is monophasic. Right Digits: The right digit waveform is dampened. Left Common Femoral Artery Analysis: The common femoral artery waveform is monophasic. Left Popliteal Artery Analysis: The popliteal waveform is multiphasic. Left Posterior Tibial Artery Analysis: The posterior tibial artery waveform is monophasic with preserved sharp upstroke. Left Anterior Tibial Artery Analysis: The anterior tibial waveform is monophasic. Left Digits: The left digit waveform is dampened. CONCLUSIONS: 1. The above listed Ankle/Brachial Indices are consistent with severe peripheral arterial disease bilaterally (for reference, TORREY < 0.50 is consistent with severe disease, rest pain). 2. Bilateral toe pressures are poor for wound healing (an absolute toe pressure = or < 30mmHg may be indicative of poor wound healing potential and /or rest pain). 3. There is evidence of arterial insufficiency bilaterally at the level of aorta-iliac, common femoral (inflow) arteries. 4. There is evidence of right leg arterial insufficiency at the level of femoral-popliteal arteries. 5. There is evidence of left leg arterial insufficiency at the level of anterior tibial artery. HISTORY: Bilateral leg pain with walking. - PREVIOUS STUDIES: Previous study on 02/16/24, RT 0.42, LT 0.49. DISCLAIMER: The study images and the final report will be retained in the patient chart by the Vascular Laboratory for the legally required time period. This chart constitutes the legal record of any testing performed. ATTESTATION: I have reviewed and interpreted the pertinent images and measurements of this study. I attest to the conclusions in the final report that is provided above. Electronically Signed By: Avery Zamudio MD [facility] [phone] 09/07/2024 9:03:57 AM ENERGY EFFICIENCY FINANCE MANAGER Procedure Note Avery Zamudio MD - 09/07/2024 [facility] - Department of Vascular Surgery,Vascular Laboratory [address] [place] [address] Lower Extremity Arterial Doppler Report Patient Name: RIVERA FREEMAN : 1950 Study Date: 09/07/2024 8:25:00 AM Gender: M Tech: Ashlie Washington [facility] Location: [facility] Provider: ANICETO FOLEY Quality: Adequate Order Provider: ANICETO FOLEY PROCEDURES: Arterial Report: Bilateral lower extremity arterial Doppler exam at rest. INDICATIONS: I70.213 Atherosclerosis of [place] arteries of extremities withintermittent claudication, bilateral legs. MEASUREMENTS: Right Value Units Left ValueUnits Rt Brachial Pressure 159 mmHg Lt Brachial Pressure 152mmHg Rt [employer]ATOR Pressure 52 mmHg Lt [employer] O[employer]ATOR Pressure 73mmHg Rt DPA Pressure 41 mmHg Lt DPA Pressure 75mmHg Rt 1st Digit Pressure 29 mmHg Lt 1st Digit Pressure 45mmHg Rt PT TORREY Resting 0.33 Lt PT TORREY Resting 0.46 Rt AT TORREY Resting 0.26 Lt AT TORREY Resting 0.47 Rt Digit/Arm Index 0.18 Lt Digit/Arm Index 0.28 Right Value Units Left ValueUnits - FINDINGS: Performing Community Assistant: Ashlie Washington RVT. Right Common Femoral Artery Analysis: The common femoral artery waveform is multiphasic. Right Popliteal Artery Analysis: The popliteal waveform is monophasic. Right Posterior Tibial Artery Analysis: The posterior tibial waveform is monophasic. Right Anterior Tibial Artery Analysis: The anterior tibial waveform is monophasic. Right Digits: The right digit waveform is dampened. Left Common Femoral Artery Analysis: The common femoral artery waveform is monophasic. Left Popliteal Artery Analysis: The popliteal waveform is multiphasic. Left Posterior Tibial Artery Analysis: The posterior tibial artery waveform is monophasic with preserved sharpupstroke. Left Anterior Tibial Artery Analysis: The anterior tibial waveform is monophasic. Left Digits: The left digit waveform is dampened. CONCLUSIONS: 1. The above listed Ankle/Brachial Indices are consistent with severeperipheral arterial disease bilaterally (for reference, TORREY < 0.50 is consistent with severedisease, rest pain). 2. Bilateral toe pressures are poor for wound healing (an absolute toepressure = or < 30mmHg may be indicative of poor wound healing potential and /or restpain). 3. There is evidence of arterial insufficiency bilaterally at the level ofaorta-iliac, common femoral (inflow) arteries. 4. There is evidence of right leg arterial insufficiency at the level of femoral-popliteal arteries. 5. There is evidence of left leg arterial insufficiency at the level ofanterior tibial artery. HISTORY: Bilateral leg pain with walking. - PREVIOUS STUDIES: Previous study on 02/16/24, RT 0.42, LT 0.49. DISCLAIMER: The study images and the final report will be retained in the patientchart by the Vascular Laboratory for the legally required time period. This chartconstitutes the legal record of any testing performed. ATTESTATION: I have reviewed and interpreted the pertinent images and measurements ofthis study. I attest to the conclusions in the final report that is provided above. Electronically Signed By: Avery Zamudio MD [facility] [phone] 09/07/2024 9:03:57 AM ENERGY EFFICIENCY FINANCE MANAGER us Aniceto Foley MD IMG US PROCEDURES Final Resul t * Cardiology Document Scan (07/15/2024 4:58 PM ENERGY EFFICIENCY FINANCE MANAGER) Anatomical Region Laterality Modality Other Mariangel Palmer MD [facility] PRO CEDURES Final Result * Cardiology Document Scan (07/15/2024 4:55 PM ENERGY EFFICIENCY FINANCE MANAGER) Anatomical Region Laterality Modality Other Mariangel Palmer MD CV CARDIAC SERVICES PRO CEDURES Final Result * Cardiology Document Scan (07/14/2024 4:12 PM ENERGY EFFICIENCY FINANCE MANAGER) Anatomical Region Laterality Modality Other us Taras Euceda MD CV CARDIAC SERVICES PROCEDURES F inal Result * Cardiology Document Scan (07/13/2024 4:10 PM ENERGY EFFICIENCY FINANCE MANAGER) Anatomical Region Laterality Modality Other us Sanchez Morgan MD CV CARDIAC SERVICES PROCE DURES Final Result * Cardiology Document Scan (07/11/2024 4:08 PM ENERGY EFFICIENCY FINANCE MANAGER) Anatomical Region Laterality Modality Other us Caro Roper NP CV CARDIAC SERVICES PROCEDUR ES Final Result * (ABNORMAL) Lipid panel (03/22/2024 10:23 AM CDT) Cholesterol 127 30 - 199 mg/dL Comment: Interpretive Data Ages < or = 19 years Acceptable: <170 mg/dL Borderline high: 170-199 mg/dL High: >or= 200 mg/dL Ages > or = 20 years Desirable: <200 mg/dL Borderline high: 200-239 mg/dL High: >or= 240 mg/dL Literature References: 1. Expert Panel on Integrated Guidelines for Cardiovascular Health and Risk Reduction in Children and Adolescents. Pediatrics 2011;128:S213 2. NCEP Expert Panel. Circulation 2004;110:227 Current Interpretive Data was last revised on 2018. Triglycerides 115 <=149 mg/dL DARIN [facility] Comment: Interpretive Data Ages < or = 9 years Acceptable: <75 mg/dL Borderline high: 75-99 mg/dL High: >or= 100 mg/dL Ages 10 to 20 years Acceptable: <90 mg/dL Borderline high: 90-129 mg/dL High: >or= 130 mg/dL Ages > or = 20 years Desirable: <150 mg/dL Borderline high: 150-199 mg/dL High: 200-499 mg/dL Very high: >or= 499 mg/dL Literature References: 1. Expert Panel on Integrated Guidelines for Cardiovascular Health and Risk Reduction in Children and Adolescents. Pediatrics 2011;128:S213 2. NCEP Expert Panel. Circulation 2004;110:227 Current Interpretive Data was last revised on 2018. HDL 37(L) >=40 mg/dL DARIN [facility] Comment: Interpretive Data Ages < or = 19 years Acceptable: >45 mg/dL Borderline low: 40-45 mg/dL Low: <40 mg/dL Ages > or = 20 years Desirable: >or= 60 mg/dL Low: <40 mg/dL Literature References: 1. Expert Panel on Integrated Guidelines for Cardiovascular Health and Risk Reduction in Children and Adolescents. Pediatrics 2011;128:S213 2. NCEP Expert Panel. Circulation 2004;110:227 Current Interpretive Data was last revised on 2018. LDL, calculated 67 <=129 mg/dL DARIN [facility] Comment: Interpretive Data Ages < or = 19 years Acceptable: <110 mg/dL Borderline high: 110-129 mg/dL High: >or= 130 mg/dL Ages > or = 20 years Optimal: <100 mg/dL Near optimal: 100-129 mg/dL Borderline high: 130-159 mg/dL High: >160 mg/dL Literature References: 1. Expert Panel on Integrated Guidelines for Cardiovascular Health and Risk Reduction in Children and Adolescents. Pediatrics 2011;128:S213 2. NCEP Expert Panel. Circulation 2004;110:227 Current Interpretive Data was last revised on 2018. Non-HDL Cholesterol 90 mg/dL [facility] Comment: Interpretive Data Ages < or = 19 years Acceptable: <120 mg/dL Borderline high: 120-144 mg/dL High: >145 mg/dL Ages > or = 20 years When triglycerides are >200 mg/dL, Non-HDL cholesterol is a secondary target of therapy with treatment goals that are 30 mg/dL greater than the LDL cholesterol target. Literature References: 1. Expert Panel on Integrated Guidelines for Cardiovascular Health and Risk Reduction in Children and Adolescents. Pediatrics 2011;128:S213 2. NCEP Expert Panel. Circulation 2004;110:227 Current Interpretive Data was last revised on 2018. Chol/HDL ratio 3 [facility] Blood 03/22/2024 10:2 3 AM CDT 03/22/2024 10:52 AM CDT us Antonette Rater [employer] LAB BLOOD ORDERABLES Final Resul t [facility] One [facility] [place] [address] * CTA Abdominal Aorta And Bilateral Iliofemoral Runoff (12/15/2023 1:56 PM CDT) Anatomical Region Laterality Modality Body Bilateral Computed Tomogra phy 12/15/2023 3:00 PM CDT Impressions 12/15/2023 3:46 PM CDT 1. 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 2. 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 Three vessel runoff in the right lower extremity. Dictated by: Damián Landeros M.D. The radiology attending physician has personally reviewed this study, and had reviewed and/or edited this written report and agrees with it. Electronically signed by: Pietro Wolfe M.D. Narrative 12/15/2023 3:46 PM CDT EXAMINATION: CT ANGIOGRAPHY OF THE ABDOMEN, PELVIS, AND LOWER EXTREMITIES WITH CONTRAST HISTORY: Claudication TECHNIQUE: CT angiography of the abdomen, pelvis, and lower extremities was performed following the uneventful intravenous administration of 11 ml Optiray-350. Vascular 3D images were generated on a dedicated workstation and also reviewed. COMPARISON: 10/18/2014 FINDINGS: VASCULAR FINDINGS: Abdominal Aorta and Branches: Celiac axis: Worsened severe stenosis at the origin SMA: Mild stenosis at the origin KATHRINE: no significant stenosis Right renal vessels: Mild-moderate stenosis at the origin Left renal vessels: Mild-moderate stenosis at the origin Infrarenal aorta: Severe stenosis with aortobiiliac stent in place. Pelvic Vessels: R. Common iliac artery: Stented with intraluminal nonocclusive plaque or thrombus and severe narrowing R. External iliac artery: Stented with intraluminal nonocclusive plaque or thrombus and severe narrowing R. Internal iliac artery: Occluded with distal reconstitution L. Common iliac artery: Stented with intraluminal nonocclusive plaque or thrombus and mild narrowing L. External iliac artery: No significant stenosis L. Internal iliac artery: Severe multifocal narrowing Right Lower Extremity: R. Common femoral artery: no significant stenosis R. Profunda femoris artery: no significant stenosis R. Superficial femoral artery: no significant stenosis R. Popliteal artery: no significant stenosis R. Anterior tibial artery: no significant stenosis R. Tibioperoneal trunk: no significant stenosis R. Posterior tibial artery: no significant stenosis R. Peroneal artery: no significant stenosis R. Dorsalis pedis artery: no significant stenosis R. Plantar artery: no significant stenosis Left Lower Extremity: L. Common femoral artery: no significant stenosis L. Profunda femoris artery: no significant stenosis L. Superficial femoral artery: no significant stenosis L. Popliteal artery: no significant stenosis L. Anterior tibial artery: Likely patent but not well seen distally L. Tibioperoneal trunk: no significant stenosis L. Posterior tibial artery: no significant stenosis L. Peroneal artery: Distally occluded (series 4 image 944) L. Dorsalis pedis artery: Patent but diminutive L. Plantar artery: Patent but diminutive NON-VASCULAR FINDINGS: Lung bases are clear. No pleural effusion. Imaged base of heart is normal. Small hiatal hernia. Esophagus and stomach are nondistended. Spleen is normal. Splenic, superior mesenteric, and portal veins are patent. No suspicious liver lesion. Gallbladder is nondistended. The pancreas is normal. Adrenal glands are normal. Kidneys enhance symmetrically. No hydronephrosis. Urinary bladder is normal. Penile prosthesis and reservoir noted. Diverticulosis without diverticulitis. No intracranial free air or free fluid. Procedure Note Pietro Wolfe MD - 12/15/2023 EXAMINATION: CT ANGIOGRAPHY OF THE ABDOMEN, PELVIS, AND LOWER EXTREMITIES WITH CONTRAST HISTORY: Claudication TECHNIQUE: CT angiography of the abdomen, pelvis, and lower extremities was performed following the uneventful intravenous administration of 11 ml Optiray-350. Vascular 3D images were generated on a dedicated workstation and also reviewed. COMPARISON: 10/18/2014 FINDINGS: VASCULAR FINDINGS: Abdominal Aorta and Branches: Celiac axis: Worsened severe stenosis at the origin SMA: Mild stenosis at the origin KATHRINE: no significant stenosis Right renal vessels: Mild-moderate stenosis at the origin Left renal vessels: Mild-moderate stenosis at the origin Infrarenal aorta: Severe stenosis with aortobiiliac stent in place. Pelvic Vessels: R. Common iliac artery: Stented with intraluminal nonocclusive plaque or thrombus and severe narrowing R. External iliac artery: Stented with intraluminal nonocclusive plaque or thrombus and severe narrowing R. Internal iliac artery: Occluded with distal reconstitution L. Common iliac artery: Stented with intraluminal nonocclusive plaque or thrombus and mild narrowing L. External iliac artery: No significant stenosis L. Internal iliac artery: Severe multifocal narrowing Right Lower Extremity: R. Common femoral artery: no significant stenosis R. Profunda femoris artery: no significant stenosis R. Superficial femoral artery: no significant stenosis R. Popliteal artery: no significant stenosis R. Anterior tibial artery: no significant stenosis R. Tibioperoneal trunk: no significant stenosis R. Posterior tibial artery: no significant stenosis R. Peroneal artery: no significant stenosis R. Dorsalis pedis artery: no significant stenosis R. Plantar artery: no significant stenosis Left Lower Extremity: L. Common femoral artery: no significant stenosis L. Profunda femoris artery: no significant stenosis L. Superficial femoral artery: no significant stenosis L. Popliteal artery: no significant stenosis L. Anterior tibial artery: Likely patent but not well seen distally L. Tibioperoneal trunk: no significant stenosis L. Posterior tibial artery: no significant stenosis L. Peroneal artery: Distally occluded (series 4 image 944) L. Dorsalis pedis artery: Patent but diminutive L. Plantar artery: Patent but diminutive NON-VASCULAR FINDINGS: Lung bases are clear. No pleural effusion. Imaged base of heart is normal. Small hiatal hernia. Esophagus and stomach are nondistended. Spleen is normal. Splenic, superior mesenteric, and portal veins are patent. No suspicious liver lesion. Gallbladder is nondistended. The pancreas is normal. Adrenal glands are normal. Kidneys enhance symmetrically. No hydronephrosis. Urinary bladder is normal. Penile prosthesis and reservoir noted. Diverticulosis without diverticulitis. No intracranial free air or free fluid. IMPRESSION: 1. 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 2. 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 Three vessel runoff in the right lower extremity. Dictated by: Damián Landeros M.D. The radiology attending physician has personally reviewed this study, and had reviewed and/or edited this written report and agrees with it. Electronically signed by: Pietro Wolfe M.D. Aniceto Foley MD IMG CT PROCEDURES Final Resul t * (ABNORMAL) Hemoglobin A1c (09/22/2023 12:19 PM ENERGY EFFICIENCY FINANCE MANAGER) Hgb A1C 6.0(H) 4.0 - 5.6 % [facility] Estimated Average Glucose 126 mg/dL [facility] Comment: The ADA recommends reporting an estimated Average Glucose (eAG) with all Hemoglobin A1c results using the equation derived from a study of 507 normal and diabetic adults. Minority populations were underrepresented and children were not included. (Diabetes Care 2020; 43(S1): S66-S76). The eAG is not equivalent to a fasting glucose. Blood 09/22/2023 12:1 9 PM ENERGY EFFICIENCY FINANCE MANAGER 09/22/2023 12:45 PM ENERGY EFFICIENCY FINANCE MANAGER us Chicho Clayton MD LAB BLOOD ORDERABLES Final Resul t [facility] Department [place] [address] from Last 3 Months or Most Recently Relevant to Health Maintenance Insurance [facility] MEDICARE MEDICARE [facility] MEDICARE [facility] MEDICARE [facility] Advance Directives For more information, please contact: [phone] * Full Code (Latest Code Status on File) Date Activated Date Inactivated Comments 10/30/2022 5:29 PM 10/31/2022 7:15 PM * Full Code Date Activated Date Inactivated Comments 08/16/2019 9:46 AM 08/16/2019 5:30 PM Care Teams Diamond Driller Helper Relationship Specialty Start Date End Date Fuentes Orellana MD PCP - General 11/28/16 Itz Iyer MD [address] [place], [place] [id number] Consulting Physician Urology 05/31/18 Shawnee Mckinney MD [address] [facility] [address] [place] [address] Referring Physician Urology 06/03/18 Chicho Clayton MD [address] [facility] [address] [place] [address] Medical Oncologist/Hematologis t Medical Oncology 06/07/18 Maria Guadalupe Palacios, RN Registered Nurse 06/10/18 Lupillo Davenport MD Referring Physician Radiation Oncology 06/16/18 Danis Meza, MARÍA [address] [facility] [address] [place] [address] Nurse Practitioner Urology 10/06/22 Antonette Owens NP [address] [facility] [address] [place] [address] Nurse Practitioner Cardiovascular Disease 10/06/22 Aniceto Foley MD [id number] [place] [address] Surgeon Vascular Surgery 10/31/22
--- OUTSIDE RECORDS SUMMARY | 2024-10-11 14:35 | XMS_ITS | Clinical Summary ---
Author Organization [facility] Address [address] [place] [address] Phone Care Team Providers Care Midlevel Provider Name Role Phone Fuentes Orellana MD Primary Care Provider [phone] Allergies No known active allergies Medications pantoprazole (PROTONIX) 40 mg Tablet, Delayed Release (E.C.) Take 40 mg by mouth daily. Active amLODIPine (NORVASC) 10 mg tablet Take 10 mg by mouth daily. Active atorvastatin (LIPITOR) 40 mg tablet Take 40 mg by mouth daily with supper. Active carvedilol (COREG) 12.5 mg tablet Take 12.5 mg by mouth. Active furosemide (LASIX) 20 mg tablet Take 20 mg by mouth daily. Active nortriptyline (PAMELOR) 25 mg capsule Take 25 mg by mouth daily at bedtime. Active ticagrelor (BRILINTA) 60 mg Tablet Take 60 mg by mouth. Active lisinopril (PRINIVIL) 20 mg tablet Take 20 mg by mouth daily. Active meclizine (ANTIVERT) 25 mg tablet Take 25 mg by mouth 3 times daily as needed for Dizziness. Active metFORMIN (GLUCOPHAGE) 500 mg tablet Take 500 mg by mouth 2 times daily with meals. Active aspirin (GERMAN CHEWABLE) 81 mg Tablet, Chewable Take 81 mg by mouth daily. Active levoFLOXacin (LEVAQUIN) 500 mg tablet Take 500 mg by mouth daily. Active dextromethorphan -guaiFENesin (MUCINEX DM) 30-600 mg Tablet Sustained Release 12HR Take 1 Tablet by mouth every 12 hours. Active Social History Tobacco Use Types Packs/Day Years Used Date Smoking Tobacco: Former Cigarettes Smokeless Tobacco: Never Comments:quit 30 years ago Alcohol Use Standard Drinks/Week Comments Yes 0 (1 standard drink = 0.6 oz pur e alcohol) Sex and Gender Information Value Date Recorded Sex Assigned at Not on file Legal Sex Male 8:34 AM CDT Gender Identity Not on file Sexual Orientation Not on file Last Filed Vital Signs Vital Sign Reading Time Taken Comments Blood Pressure 130/47 01/18/2019 2:15 PM CDT Pulse 62 01/18/2019 2:15 PM CDT Temperature 35.7 C (96.3 F) 01/18/2019 1:35 PM CDT Respiratory Rate 16 01/18/2019 1:35 PM CDT Oxygen Saturation 100% 01/18/2019 2:15 PM CDT Inhaled Oxygen Concentration - - Weight 70.3 kg (155 lb) 01/18/2019 10:56 AM CDT Height 167.6 cm (5' 6 ) 01/18/2019 10:56 AM CDT Body Mass Index 25.02 01/18/2019 10:56 AM CDT Plan of Treatment Health Maintenance Due Date Last Done Comments DTAP/TDAP/TD VACCINES (1 - Tdap) 1968 COLORECTAL SCREENING 1994 Colorectal Cancer Screening 1994 FIT-DNA Q 3 years 1994 FIT/FOBT Q 1 year 1994 Flex Sig/CT Colonography Q 5 years 1994 PNEUMOCOCCAL VACCINE 65+ YEARS (1 of 1 - PCV) 09/08/19 00 ZOSTER VACCINE (1 of 2) 1999 INFLUENZA VACCINE (#1) 2024 06/15/2018 RSV VACCINE (60+ or ) (1 - 1-dose 75+ series) 2024 Medical Devices Implanted Type Area Acquisition Manager Device Identifier Shelf Expiration Date Model / Serial / Lot Ams 800 Urinary Control System(Penile Implant) Description:MRI conditional for 3T or less -danisha 01/04/19 Insurance MEDICARE PART A AND B [facility] [id number] Care Teams Midlevel Provider Relationship Specialty Start Date End Date Fuentes Orellana MD [address] [place] [address] PCP - General Family Practice 01/04/19
--- OUTSIDE RECORDS SUMMARY | 2024-10-11 14:35 | XMS_ITS | Encounter Summary ---
Author Organization [facility] Address [address] [place] [address] Phone Care Team Providers Care Manipulator Operator Name Role Phone Fuentes Orellana MD Primary Care Provider [phone] Brent Dickinson DO Unavailable [phone] Faviola Jiménez PIPED POCKET MACHINE OPERATOR, OUTPATIENT PHYSICAL THERAPIST ASSISTANT Unavailable Shawnee Mckinney MD Unavailable Chicho Clayton MD Unavailable Lai Lambert PIPED POCKET MACHINE OPERATOR, OUTPATIENT PHYSICAL THERAPIST ASSISTANT Unavailable Kami Meneses MD Unavailable [phone] Anette Bond MD Unavailable [phone] Kay Gordon APRN, OUTPATIENT PHYSICAL THERAPIST ASSISTANT Unavailable Kami Meneses MD Unavailable [phone] Reason for Visit * Reason Comments Medication Refill Encounter Details Date Type Department Care Team (Late st Contact Info) Description 11/12/2022 Refill [facility] - Gastroenterology [facility] [address] [place] [address] Ingrid Mccloud, PAC [address] [place] [address] Medication Refill Social History Tobacco Use Types [...] 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 pantoprazole (PROTONIX) 40 MG Tablet Delayed Response [Pharmacy Med Name: PANTOPRAZOLE 40MG TABLETS] 90 Tablet 1 Sig: TAKE 1 TABLET BY MOUTH DAILY Last fill: 05/08/2022 Patients last OV with GI: 08/13/2021 Next Office Visit with GI: None scheduled. Spoke with patient, appt scheduled for 12/25/2022. Routing to provider to approve due to last provider is no longer with office. Pantoprazole order pended, please approve. documented in this encounter Plan of Treatment Upcoming Encounters Date Type Department Care Team (Late st Contact Info) Description 01/27/2025 9:45 AM CDT Office Visit [facility] [address] [place] [id number] Kami Meneses MD [address], [address] [address] documented as of this encounter Visit Diagnoses Not on filedocumented in this encounter Care Teams Manipulator Operator Relationship Specialty Start Date End Date Fuentes Orellana MD [address] [address] PCP - General Family Medicine 07/06/15 Brent Dickinson DO [address] [facility] [address] Gastroenterology 06/27/16 Faviola Jiménez PIPED POCKET MACHINE OPERATOR, OUTPATIENT PHYSICAL THERAPIST ASSISTANT [address] [facility] [address] Nurse Practitioner Advanced Practice Nurse 07/22/16 Shawnee Mckinney MD [address] [facility] [address] [place] [address] Urologist Urology 06/07/19 Chicho Clayton MD [address] [facility] [address] [place] [address] Oncology 06/13/19 Lai Lambert APRN, OUTPATIENT PHYSICAL THERAPIST ASSISTANT [address] [place] [address] Nurse Practitioner Advanced Practice Nurse 02/10/23 Kami Meneses MD [address] [address] Consulting Physician Urology 06/16/23 Anette Bond MD [address] [place] [address] Consulting Physician Gastroenterology 12/25/22 Kay Gordon APRN, OUTPATIENT PHYSICAL THERAPIST ASSISTANT [address] [place] [address] Nurse Practitioner Advanced Practice Nurse 06/16/24 Kami Meneses MD [address] [facility], [address] [address] Consulting Physician Urology 08/19/24 documented as of this encounter
--- OUTSIDE RECORDS SUMMARY | 2024-10-11 14:35 | XMS_ITS ---
Author Organization [facility] [address] Address [address] [place] [address] Care Team Providers Care Installers Mechanical Name Role Phone Fuentes Orellana MD Primary Care Provider [phone] Itz Iyer MD Unavailable [phone] Shawnee Mckinney MD Unavailable [phone] Chicho Clayton MD Unavailable Maria Guadalupe Palacios RN Unavailable Unava ilable Lupillo Davenport MD Unavailable [phone] Danis Meza HOSPITAL UNIT CLERK Unavailable Antonette Owens NP Unavailable Aniceto Foley MD Unavailable [phone] Active Problems Problem Noted Date Diagnosed Date [...] (10/21/2022): Added automatically from request for surgery [id number] Assessment & Plan (10/30/2022 2:56 PM HEAD BANQUET WAITRESS): - OR 3/2 for planned R CEA - OU status, Q2h NV/VS monitoring - Bedrest today, OOB/PT POD #1 - SBP goal 100-160, nicardipine for elevated BP - Continue aspirin and statin - Plan to stager home medications and resume overnight 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, bilateral legs 06/03/2022 Melanoma 01/10/2021 Anxiety 01/10/2021 DM (diabetes mellitus) 01/10/2021 Assessment & Plan (10/30/2022 9:59 AM HEAD BANQUET WAITRESS): - A1c 7.6% 10/2022 - SSI while inpatient - CC diet when eating Elevated left ventricular end-diastolic pressure (LVEDP) 11/15/2019 Encounter for surgical after care following surgery of circulatory system 05/20/2019 Prostate cancer 09/10/2018 Assessment & Plan (10/27/2018 9:53 AM HEAD BANQUET WAITRESS): Follows with urology, has his PSA monitored it is increasing, but still WNL 1.4 Assessment & Plan (09/22/2018 11:35 AM HEAD BANQUET WAITRESS): Has close follow up with his oncologist. His PSA was slightly elevated on last check. Hyperlipidemia 09/21/2017 Assessment & Plan (06/30/2018 9:38 AM CDT): His last lipid panel was within acceptable range; he will continue on a high intensity statin. Assessment & Plan (09/21/2017 11:34 AM HEAD BANQUET WAITRESS): Continue Lipitor 40 mg daily. Essential hypertension 07/20/2017 Assessment & Plan (10/30/2022 2:57 PM HEAD BANQUET WAITRESS): - Tight BP goals post-procedure - Continue home medications as indicated by BP goals as above, staggering overnight for gentle BP control Assessment & Plan (10/27/2018 9:54 AM HEAD BANQUET WAITRESS): Hypertension is unchanged. Dietary sodium restriction. Blood pressure will be reassessed in 4 weeks. Assessment & Plan (09/22/2018 11:38 AM HEAD BANQUET WAITRESS): Hypertension remains elevated. He is increasing his [...] today Assessment & Plan (09/21/2017 11:33 AM HEAD BANQUET WAITRESS): Blood pressure is well controlled today. Last visit we added HCTZ 12.5 mg daily. Continue current medications Assessment & Plan (08/10/2017 11:26 AM HEAD BANQUET WAITRESS): Blood pressure is not controlled. Add hydrochlorothiazide 12.5 mg p.o. daily. He is compliant with medications but always add salt to food which I advised him not to do that. Assessment & Plan (07/20/2017 9:19 AM HEAD BANQUET WAITRESS): Blood pressure remains uncontrolled. We will order renal Doppler ultrasound to rule out renal artery stenosis given the fact that he has peripheral vascular disease and coronary artery disease. I will increase amlodipine from 5-10 mg p.o. daily. If that does not control the blood pressure we will add hydrochlorothiazide 12.5 mg p.o. Daily. Coronary artery disease invo lving mohegan coronary artery of mohegan heart without angina pectoris 07/20/2017 Assessment & Plan (10/30/2022 9:58 AM HEAD BANQUET WAITRESS): - Continue home medications as able - Maintained on Brilinta as an outpatient; held 1 week prior to OR - Will discuss with surgery team when to safely resume post-procedure Assessment & Plan (10/27/2018 9:59 AM HEAD BANQUET WAITRESS): Coronary artery disease is improving with lifestyle modifications. Continue current treatment regimen. Cardiac status will be reassessed in 3 months. No chest pain. Minimal SOB. Continue asa, statin, brilinta Assessment & Plan (09/22/2018 11:36 AM HEAD BANQUET WAITRESS): Coronary artery disease is unchanged. Regular aerobic [...] BB. Assessment & Plan (09/21/2017 11:33 AM HEAD BANQUET WAITRESS): Continue aspirin, Brilinta, Toprol XL and atorvastatin. Assessment & Plan (08/10/2017 11:27 AM HEAD BANQUET WAITRESS): Continue Brilinta and aspirin. Asymptomatic. Assessment & Plan (07/20/2017 9:19 AM HEAD BANQUET WAITRESS): Continue aspirin, Brilinta, Lipitor , metoprolol PVD (peripheral vascular disease) 07/20/2017 Assessment & Plan (10/27/2018 9:21 AM HEAD BANQUET WAITRESS): S/P bilateral ALVA angioplasty; right EIA angioplasty/stent 11/21/14. S/P aortoiliac angioplasty/stent 05/28/09. Continues on asa, statin and brilinta Assessment & Plan (09/21/2017 11:34 AM HEAD BANQUET WAITRESS): He follows up with vascular surgery at [facility] Assessment & Plan (08/10/2017 11:27 AM HEAD BANQUET WAITRESS): Renal ultrasound suggest more than 60% stenosis in the right renal artery and infrarenal stenosis 50-70%. He follows up with Dr. Foley from vascular surgery at [facility] Assessment & Plan (07/20/2017 9:20 AM HEAD BANQUET WAITRESS): Patient will follow up with Dr. Foley from vascular surgery. He does have some claudication when he walks. 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 Past Plans No past plan information found. Radiation Treatments * No radiation treatments are documented for this patient in Epic. Treatments may have been administered in another system. Lifetime Dose Tracking * Chemical Lifetime Dose Automatic Entry Manual Entr y Fluoro Time 21.7 minutes 21.7 minutes 0 minutes Air kerma at the reference point (Ka,r) 1,085 mGy 6 66 mGy 419 mGy DLP 771 mGycm 771 mGycm 0 mGycm Resolved Problems Problem Noted Date Diagnosed Date Resolved Date Dizzinesses 10/27/2018 02/09/2019 Assessment & Plan (10/27/2018 10:17 AM HEAD BANQUET WAITRESS): Persistent dizziness. Has stopped caffeine intake. Has [...] due to any device, implant or graft 02/09/2019 Atherosclerosis of mohegan artery of extremity 04/15/20 16 02/09/2019 Assessment & Plan (09/22/2018 11:26 AM HEAD BANQUET WAITRESS): 80% circumflex s/p RICHARD. 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 {plan; hypertension for POC:[id number]} Blood pressure will be reassessed {plan; follow-up 2 weeks/4weeks/3months:[id number]}. Increase amolodipine to 10 mg Continue all [...]
--- OUTSIDE RECORDS SUMMARY | 2024-10-11 14:35 | XMS_ITS | Clinical Summary ---
Author Organization [facility] [address] Address [address] [place] [address] Care Team Providers Care Candy Packer Name Role Phone Fuentes Orellana MD Primary Care Provider Itz Iyer MD Unavailable [phone] Shawnee Mckinney MD Unavailable [phone] Chicho Clayton MD Unavailable Maria Guadalupe Palacios RN Unavailable Unava ilable Lupillo Davenport MD Unavailable [phone] Danis Meza [employer] Unavailable Antonette Owens NP Unavailable Aniceto Foley MD Unavailable Allergies No known active allergies Medications aspirin [...] 1 tablet (5 mg total) by mouth smasher before breakfast 4 Active nitroglycerin (NITROSTAT) 0.3 mg SL tabletIndicatio ns:acute episode of anginal pain Place 1 tablet (0.3 mg total) under the tongue every 5 (five) minutes as needed for chest pain 25 tablet 3 4 08/09/20 25 Active metoprolol tartrate (LOPRESSOR) 25 mg immediate release tabletIndicatio ns:Coronary artery disease involving jamul coronary artery of jamul heart without angina pectoris Take 1 tablet [...] (10/21/2022): Added automatically from request for surgery [id number] Assessment & Plan (10/30/2022 2:56 PM PAN CLEANER): - OR 3/2 for planned R CEA - OU status, Q2h NV/VS monitoring - Bedrest today, OOB/PT POD #1 - SBP goal 100-160, nicardipine for elevated BP - Continue aspirin and statin - Plan to stager home medications and resume overnight Atherosclerosis of jamul ar teries of extremities with intermittent claudication, bilateral legs 06/03/2022 Melanoma 01/10/2021 Anxiety 01/10/2021 DM (diabetes mellitus) 01/10/2021 Assessment & Plan (10/30/2022 9:59 AM PAN CLEANER): - A1c 7.6% 10/2022 - SSI while inpatient - CC diet when eating Elevated left ventricular end-diastolic pressure (LVEDP) 11/15/2019 Encounter for surgical after care following surgery of circulatory system 05/20/2019 Prostate cancer 09/10/2018 Assessment & Plan (10/27/2018 9:53 AM PAN CLEANER): Follows with urology, has his PSA monitored it is increasing, but still WNL 1.4 Assessment & Plan (09/22/2018 11:35 AM PAN CLEANER): Has close follow up with his oncologist. His PSA was slightly elevated on last check. Hyperlipidemia 09/21/2017 Assessment & Plan (06/30/2018 9:38 AM CDT): His last lipid panel was within acceptable range; he will continue on a high intensity statin. Assessment & Plan (09/21/2017 11:34 AM PAN CLEANER): Continue Lipitor 40 mg daily. Essential hypertension 07/20/2017 Assessment & Plan (10/30/2022 2:57 PM PAN CLEANER): - Tight BP goals post-procedure - Continue home medications as indicated by BP goals as above, staggering overnight for gentle BP control Assessment & Plan (10/27/2018 9:54 AM PAN CLEANER): Hypertension is unchanged. Dietary sodium restriction. Blood pressure will be reassessed in 4 weeks. Assessment & Plan (09/22/2018 11:38 AM PAN CLEANER): Hypertension remains elevated. He is increasing his [...] today Assessment & Plan (09/21/2017 11:33 AM PAN CLEANER): Blood pressure is well controlled today. Last visit we added HCTZ 12.5 mg daily. Continue current medications Assessment & Plan (08/10/2017 11:26 AM PAN CLEANER): Blood pressure is not controlled. Add hydrochlorothiazide 12.5 mg p.o. daily. He is compliant with medications but always add salt to food which I advised him not to do that. Assessment & Plan (07/20/2017 9:19 AM PAN CLEANER): Blood pressure remains uncontrolled. We will order renal Doppler ultrasound to rule out renal artery stenosis given the fact that he has peripheral vascular disease and coronary artery disease. I will increase amlodipine from 5-10 mg p.o. daily. If that does not control the blood pressure we will add hydrochlorothiazide 12.5 mg p.o. Daily. Coronary artery disease invo lving jamul coronary artery of jamul heart without angina pectoris 07/20/2017 Assessment & Plan (10/30/2022 9:58 AM PAN CLEANER): - Continue home medications as able - Maintained on Brilinta as an outpatient; held 1 week prior to OR - Will discuss with surgery team when to safely resume post-procedure Assessment & Plan (10/27/2018 9:59 AM PAN CLEANER): Coronary artery disease is improving with lifestyle modifications. Continue current treatment regimen. Cardiac status will be reassessed in 3 months. No chest pain. Minimal SOB. Continue asa, statin, brilinta Assessment & Plan (09/22/2018 11:36 AM PAN CLEANER): Coronary artery disease is unchanged. Regular aerobic [...] BB. Assessment & Plan (09/21/2017 11:33 AM PAN CLEANER): Continue aspirin, Brilinta, Toprol XL and atorvastatin. Assessment & Plan (08/10/2017 11:27 AM PAN CLEANER): Continue Brilinta and aspirin. Asymptomatic. Assessment & Plan (07/20/2017 9:19 AM PAN CLEANER): Continue aspirin, Brilinta, Lipitor , metoprolol PVD (peripheral vascular disease) 07/20/2017 Assessment & Plan (10/27/2018 9:21 AM PAN CLEANER): S/P bilateral ALVA angioplasty; right EIA angioplasty/stent 11/21/14. S/P aortoiliac angioplasty/stent 05/28/09. Continues on asa, statin and brilinta Assessment & Plan (09/21/2017 11:34 AM PAN CLEANER): He follows up with vascular surgery at [facility] Assessment & Plan (08/10/2017 11:27 AM PAN CLEANER): Renal ultrasound suggest more than 60% stenosis in the right renal artery and infrarenal stenosis 50-70%. He follows up with Dr. Foley from vascular surgery at [facility] Assessment & Plan (07/20/2017 9:20 AM PAN CLEANER): Patient will follow up with Dr. Foley from vascular surgery. He does have some claudication when he walks. Intrinsic urethral sphincter deficiency 06/08/20 15 Resolved Problems Problem Noted Date Diagnosed Date Resolved Date Dizzinesses 10/27/2018 02/09/2019 Assessment & Plan (10/27/2018 10:17 AM PAN CLEANER): Persistent dizziness. Has stopped caffeine intake. Has [...] implant or graft 6 02/09/2019 Atherosclerosis of jamul artery of extremity 04/15/20 16 02/09/2019 Assessment & Plan (09/22/2018 11:26 AM PAN CLEANER): 80% circumflex s/p RICHARD. Moderate 30 % LAD with bridging Impotence of organic origin 09/18/2015 02/09/2019 Urinary tract infection 01/18/201501/29 Incontinence 01/18/2015 02/09/2019 Stricture, urethra 07/31/2011 9 Overview (12/10/2017): Description: Dilation 06/09/11 Nocturia 11/28/2010 02/09/2019 Hypertension 05/16/2009 02/09/2019 Assessment & Plan (10/27/2018 10:11 AM PAN CLEANER): Hypertension is {improving/stable/worsenin}. {plan; hypertension for POC:[id number]} Blood pressure will be reassessed {plan; follow-up 2 weeks/4weeks/3months:[id number]}. Increase amolodipine to 10 mg Continue all [...] Foley from Vascular Surgery. Hypercholesterolemia 05/16/2009 019 Encounters Date Type Department Care Team Description 09/27/2024 11:45 AM PAN CLEANER Office Visit [facility] Oncology [address] [place] [address] Chicho Clayton MD Prostate cancer (HCC) (Primary Dx) 09/27/2024 11:00 AM PAN CLEANER Lab [facility] - [facility] Collection [address] [facility] [address] [place] [address] Prostate cancer (HCC) 09/27/2024 10:45 AM PAN CLEANER Lab [facility] Oncology Lab [address] [place] [address] Prostate cancer (HCC) 09/09/2024 Orders Only [facility] Surgery [address] [facility] [facility] Medicine 8th [place] [address] [place] [address] Aniceto Foley MD PVD (peripheral vascular disease) (HCC) (Primary Dx) 09/07/2024 10:00 AM PAN CLEANER Office Visit [facility] Surgery [address] [facility] Advanced Medicine 8th [place] [address] [place] [address] Aniceto Foley MD Atherosclerosis of jamul arteries of extremities with intermittent claudication, bilateral legs (HCC) (Primary Dx) 09/07/2024 8:45 AM PAN CLEANER Ancillary Procedure [facility] Vascular Lab at the [facility] Advanced Medicine [address] Medicine 8th [place] [address] [place] [address] Atherosclerosis of jamul arteries of extremities with intermittent claudication, bilateral legs (HCC) 08/11/2024 Telephone [facility] Cardiology [address] [facility] [address] [place] [phone] Kay Ward NP 08/09/2024 11:30 AM PAN CLEANER Office Visit [facility] Cardiology [address] [place] [address] Kay Ward NP Orthostatic hypotension (Primary Dx); Coronary artery disease involving jamul coronary artery of jamul heart without angina pectoris; LVH (left ventricular hypertrophy); Chronic kidney disease, unspecified CKD stage; Thyroid nodule; PVD (peripheral vascular disease) ([facility]) 07/25/2024 Telephone [facility] Surgery [address] [facility] Floor 1 [place] [address] Aniceto Foley MD 07/22/2024 Telephone [facility] Surgery [address] [facility] Floor 1 [place] [address] Aniceto Foley MD 07/19/2024 Orders Only [facility] Cardiology [address] [place] [phone] Mariangel Palmer MD 07/15/2024 Orders Only [facility] Cardiology [address] [place] [phone] Caro Roper NP 07/15/2024 Telephone [facility] Surgery [address] [facility] Floor 1 [place] [address] Aniceto Foley MD from Last 3 Months Immunizations Name Administration Dates Next Due Adenovirus 05/03/2018 Influenza, Quad, Adjuvantated, Intramuscular Influenza, Quadrivalent, Kaia l Culture-based MDCK, Preservative Free, Antibiotic Free, Intramuscular 05/31/2019,06/15/2018 Influenza, Quadrivalent, Hig h Dose, Preservative Free, Intrr 06/25/2021 Influenza, Unspecified 05/31/2022,11/22/2014 Pfizer SARS-CoV-2 Monovalent Vaccination (12+ Yrs) PURPLE 11/25/2020,11/01/2020 Pneumococcal Conjugate, Unspecified 11/22/2014 Pneumococcal Polysaccharide PPV23 11/22/2014 Tdap 10/07/2020 Surgical History Surgery Date Site/Laterality Comments KNEE SURGERY Left 07/1991 & 01/2010 ROTATOR CUFF REPAIR 05/31/2000 - 06/30/2000 Right PROSTATECTOMY 03/31/2005 - 04/30/2005 ANGIOPLASTY 10/2006, 08/2007, 05/2010, 10/2014 CARDIAC STENT PLACEMENT 12/16/2016 stent X 1 to Left Cx URETHRAL DILATION 01/2010, 11/2014 CORONARY ANGIOPLASTY CARDIAC CATHETERIZATION 07/31/2019 - 08/30/2019 PERIPHERAL ARTERIAL STENT GRAFT 08/31/2008 - 08/30/2009 bilateral ALVA angioplasy and right EIA angioplasty/stent '15, aortoiliac stent '09. CATARACT EXTRACTION W/ INTRAOCULAR LENS IMPLANT Right ANGIO SELECTIVE CAROTID AROMATHERAPIST RIGHT 10/15/2022 Right MELANOMA RESECTION 12/17/2014 Right cheek & neck COLONOSCOPY 01/2015, 11/2016, 05/2019 & 05/2020 UPPER GASTROINTESTINAL ENDOSCOPY 05/2020 & 10/2021 SMALL BOWEL RESECTION for SBO-- 08/2015 & 03/2019 URINARY SPHINCTER IMPLANT 05/01/2015 - 05/30/2015 ANGIOPLASTY / STENTING ILIAC 11/21/2014 Right Right external iliac artery angioplasty and stenting using an ICAST balloon expandable stent CAROTID ENDARTERECTOMY 10/30/2022 Right Right carotid endarterectomy with bovine patch repair. Medical History Medical History Date Comments Embolism (CMS/HCC) (HCC) 02/28/2010 Blood c lots History of melanoma 12/17/2014 Melanoma Rig ht cheek & posterior neck s/p excision 11/2014 Hypertension Dxd Hyperlipidemia Coronary artery disease s/p sten t 2016 DVT (deep venous thrombosis) (CMS/HCC) ([facility]) Erectile dysfunction Type 2 diabetes mellitus (HCC) Osteoarthritis Cataract OD Glaucoma Status post radiation therapy 2005 pr ostate cancer History of prostate cancer Prost ate CA s/p prostatectomy 03/2005 and radiation (last 2005) History of DVT (deep vein thrombosis) h/o DVT LLE s/p knee surgery 2009-- Treated with blood thinner for ~6 months Family History Medical History Relation Name Comments Cancer Father Cancer, unknown ; Cause of : Cancer, unknown Heart disease Maternal Grandmother Cancer Mother Cancer, unknown ; Cause of : Cancer, unknown Anesthesia problems Neg Hx Relation Name Status Comments Father (Age 83) Maternal Grandmother Mother (Age 37) Social History Tobacco Use Types Packs/Day Years [...] on file Legal Sex Male 12:32 AM PAN CLEANER Gender Identity Not on file Sexual Orientation Choose not to disclose 2018 8:58 AM CDT Occupation Industry Job 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 Date retired Not on file Not on file Not on file Obstetrics History Last Filed Vital Signs Vital Sign Reading Time Taken Comments Blood Pressure 109/54 09/27/2024 11:01 AM PAN CLEANER Pulse 61 09/27/2024 11:01 AM PAN CLEANER Temperature 36.7 C (98.1 F) 09/27/2024 11:01 AM PAN CLEANER Respiratory Rate 18 09/27/2024 11:01 AM PAN CLEANER Oxygen Saturation 96% 09/27/2024 11:01 AM PAN CLEANER Inhaled Oxygen Concentration - - Weight 73.5 kg (162 lb) 09/27/2024 11:01 AM PAN CLEANER Height 166.6 cm (5' 5.59 ) 09/27/2024 11:[address] Body Mass Index 26.47 09/27/2024 11:01 AM PAN CLEANER Plan of Treatment Health Maintenance Due Date Last Done Comments Albumin Creatinine Ratio, Urine 1950 Colon Cancer Screening-Colonoscopy 1950 Depression Screening 1950 Hepatitis C Screening 1950 Dilated Eye Exam 1950 Foot Exam 1950 Hepatitis B Screening 1967 Zoster Vaccine (1 of 2) 1999 Well Visit 65+ 2014 Fall Risk Assessment 11/01/2023 10/31/2022 Hemoglobin A1C 03/22/2024 09/22/2023, 0712/2022, 10/07/2022, Additional history exists Covid-19 Vaccine (3 - 2023-2 5 season) 2024 11/25/2020, 11/01/2020 Lipid Panel 03/22/2025 03/22/2024, 01/30, 10/31/2022, Additional history exists eGFR 09/27/2025 09/27/2024, 03/01, 02/25/2024, Additional history exists DTaP/Tdap/Td Vaccine (2 - Td or Tdap) 10/07/2030 10/07/2020 Pneumococcal vaccine 65+ Completed 11/22/2014, 10/30 Abdominal Aortic Aneurysm (A AA) Screen Completed 12/15/2023, 06/02/2023, 06/06/2019, Additional history exists Influenza Vaccine Completed 06/06/2024, , 06/25/2021, Additional history exists Medical Devices Implanted Type Area Desk Clerks Supervisor Device Identifier Shelf Expiration Date Model / [...] and 61 to 70 cm pressure-regulating balloon. [employer] Vascu-Guard 8x.8cm Peripheral Patch Vascular Bovine Pericardium [id number]-[id number] - [id number] Implanted:Qty: 1 on 10/30/2022 by Aniceto Foley MD at [facility] Right: Carotid [employer] [id number] 07/09/2023 [id number] / / [id number] Procedures Procedure Name Priority Date/Time Associated Diagnosis Comments EGFR Routine 09/27/2024 10:40 AM PAN CLEANER Prostate cancer (HCC) DIFFERENTIAL AUTO Routine 09/27/2024 10: 40 AM PAN CLEANER Prostate cancer (HCC) CBC WITH AUTO DIFFERENTIAL Routine 09/27/2024 10:40 AM PAN CLEANER Prostate cancer (HCC) COMPREHENSIVE METABOLIC PANEL Routine 09/27/2024 10:40 AM PAN CLEANER Prostate cancer (HCC) LACTATE DEHYDROGENASE Routine 09/27/2024 10:40 AM PAN CLEANER Prostate cancer (HCC) PSA DIAGNOSTIC Routine 09/27/2024 10:40 AM PAN CLEANER Prostate cancer (HCC) US LOWER EXTREMITY TREADMILL TESTING Schedule Routine, Read Routine (OP Routine) 09/07/2024 9:04 AM PAN CLEANER Atherosclerosis of jamul arteries of extremities with intermittent claudication, bilateral legs (HCC) CARDIOLOGY DOCUMENT SCAN Routine 07/15/2024 4:58 PM PAN CLEANER CARDIOLOGY DOCUMENT SCAN Routine 07/15/2024 4:55 PM PAN CLEANER CARDIOLOGY DOCUMENT SCAN Routine 07/14/2024 4:12 PM PAN CLEANER CARDIOLOGY DOCUMENT SCAN Routine 07/13/2024 4:10 PM PAN CLEANER CARDIOLOGY DOCUMENT SCAN Routine 07/11/2024 4:08 PM PAN CLEANER LIPID PANEL Routine 03/22/2024 10:23 AM CDT Coronary artery disease involving jamul coronary artery of jamul heart without angina pectoris CTA ABDOMINAL AORTA AND BILATERAL ILIOFEMORAL RUNOFF Schedule Routine, Read Routine (OP Routine) 12/15/2023 1:56 PM CDT PVD (peripheral vascular disease) (HCC) HEMOGLOBIN A1C Routine 09/22/2023 12:19 PM PAN CLEANER Prostate cancer (HCC) from Last 3 Months or Most Recently Relevant to Health Maintenance Results * (ABNORMAL) eGFR (09/27/2024 10:40 AM PAN CLEANER) eGFR 42(L) >=60 mL/min/1. 73 m2 Comment: [...] reviewed 2021. Blood 09/27/2024 10:4 0 AM PAN CLEANER 09/27/2024 10:57 AM PAN CLEANER us Chicho Clayton MD LAB BLOOD ORDERABLES Final Resul t [facility] [place] [address] * (ABNORMAL) Differential, auto (09/27/2024 10:40 AM PAN CLEANER) Neutrophil abs 7.8(H) 1.5 - 6.5 K/cumm Comment:Testing performed by : [facility], [address] [place], [place] [phone] Lymphocyte abs 1.5 0.8 - 3.3 K/cumm [facility] Comment:Testing performed by : [facility], [address] [place] [phone] Monocyte abs 0.6 0.2 - 0.8 K/cumm [facility] Comment:Testing performed by : [facility], [address] [place] [phone] Eosinophil abs 0.1 0.0 - 0.5 K/cumm [facility] Comment:Testing performed by : [facility], [address] [place] [phone] Basophil abs 0.1 0.0 - 0.1 K/cumm [facility] Comment:Testing performed by : [facility], [address] [place] [phone] Neutrophil pct 77.5 % [facility] Comment: Interpretive Data Percent cell count reference ranges are not reported, since discordance with absolute values may lead to misinterpretation of CBC data. Current Interpretive Data was last revised on 2017. Testing performed by: [facility], [address] [place] [phone] Lymphocyte pct 14.9 % [facility] BRYSON Comment: Interpretive Data Percent cell count reference ranges are not reported, since discordance with absolute values may lead to misinterpretation of CBC data. Current Interpretive Data was last revised on 2017. Testing performed by: [facility], [address] [place] [phone] Monocyte pct 5.7 % DARIN BRYSON Comment: Interpretive Data Percent cell count reference ranges are not reported, since discordance with absolute values may lead to misinterpretation of CBC data. Current Interpretive Data was last revised on 2017. Testing performed by: [facility], [address] [place] [phone] Eosinophil pct 1.3 % DARIN BRYSON Comment: Interpretive Data Percent cell count reference ranges are not reported, since discordance with absolute values may lead to misinterpretation of CBC data. Current Interpretive Data was last revised on 2017. Testing performed by: [facility], [address] [place] [phone] Basophil pct 0.6 % DARIN BRYSON Comment: Interpretive Data Percent cell count reference ranges are not reported, since discordance with absolute values may lead to misinterpretation of CBC data. Current Interpretive Data was last revised on 2017. Testing performed by: [facility], [address] [place] [phone] Blood 09/27/2024 10:4 0 AM PAN CLEANER 09/27/2024 10:56 AM PAN CLEANER us Chicho Clayton MD LAB BLOOD ORDERABLES Final Resul t DARIN PERDOMO [facility] [place] [address] * (ABNORMAL) CBC with auto differential (09/27/2024 10:40 AM PAN CLEANER) WBC 10.0(H) 3.8 - 9.9 K/cumm Comment:Testing performed by : [facility], [address] [place] [address] Hgb 10.5(L) 13.0 - 17.5 g/dL [facility] Comment:Testing performed by : [facility], [address] [place] [address] Hct 30.8(L) 38.9 - 50.3 % CERNAFISA BRYSON Comment:Testing performed by : [facility], [address] [place] [address] Plt 206 150 - 400 K/cumm [facility]ERNA[facility]ISA BR[facility]ON Comment:Testing performed by : [facility], [address] [place] [address] MPV 8.9 6.8 - 10.4 fL [facility] Comment:Testing performed by : [facility], [address] [place] [address] RBC 3.33(L) 4.30 - 5.80 M/cumm [facility] Comment:Testing performed by : [facility], [address] [place] [address] MCV 92.4 81.3 - 96.4 fL [facility] Comment:Testing performed by : [facility], [address] [place] [address] MCH 31.6 27.1 - 33.3 pg [facility] Comment:Testing performed by : [facility], [address] [place] [address] MCHC 34.2 32.3 - 35.7 g/dL [facility] Comment:Testing performed by : [facility], [address] [place] [address] RDW CV 14.0 11.1 - 14.9 % [facility] Comment:Testing performed by : [facility], [facility] [place] [address] NRBC abs 0.00 0.00 - 0.01 K/cumm [facility]IN [facility] Comment:Testing performed by : [facility], [facility] [place] [address] Blood 09/27/2024 10:4 0 AM PAN CLEANER 09/27/2024 10:56 AM PAN CLEANER Chicho Clayton MD LAB BLOOD ORDERABLES Final Resul t Performing Organization Address [facility] Co de Phone Number [facility] [place] [address] * PSA diagnostic (09/27/2024 10:40 AM PAN CLEANER) PSA-Total 5.26 <=6.20 ng/mL Comment: Interpretive Data [...] revised 22. Blood 09/27/2024 10:4 0 AM PAN CLEANER 09/27/2024 10:57 AM PAN CLEANER Chicho Clayton MD LAB BLOOD ORDERABLES Final Resul t Performing Organization Address [facility] Co de Phone Number [facility] [place] [address] * Lactate dehydrogenase (LD) (09/27/2024 10:40 AM PAN CLEANER) Lactate dehydrogenase (LDH) 121 100 - 250 Units/L Blood 09/27/2024 10:4 0 AM PAN CLEANER 09/27/2024 10:57 AM PAN CLEANER us Chicho Clayton MD LAB BLOOD ORDERABLES Final Resul t [facility] [place] [address] * (ABNORMAL) Comprehensive metabolic panel (09/27/2024 10:40 AM PAN CLEANER) Sodium 142 135 - 145 mmol/L Potassium, pl 4.1 3.3 - 4.9 mmol/L [facility] Chloride 108 97 - 110 mmol/L [facility] CO2 29 22 - 32 mmol/L [facility] Anion gap 5 2 - 15 mmol/L [facility] BUN 32(H) 6 - 25 mg/dL [facility] Creatinine 1.68(H) 0.80 - 1.30 mg/dL [facility] Glucose 182 70 - 199 mg/dL [facility] Comment: Interpretive Data Fasting glucose >/= 126 [...] classification and Diagnosis of Diabetes Diabetes Care 202; 46: S19-S40. Current interpretive data was last revised 2022. Calcium 10.4(H) 8.5 - 10.3 mg/dL [facility] Bilirubin, total 0.2 0.1 - 1.2 mg/dL [facility] Protein, pl 6.9 6.5 - 8.5 g/dL [facility] Albumin 3.7 3.5 - 5.0 g/dL [facility] Alk phos 102 40 - 130 Units/L [facility] ALT 14 7 - 55 Units/L [facility] AST 17 10 - 50 Units/L [facility] Blood 09/27/2024 10:4 0 AM PAN CLEANER 09/27/2024 10:57 AM PAN CLEANER us Chicho Clayton MD LAB BLOOD ORDERABLES Final Resul t DARIN Ortiz [facility] [place] [address] * US Lower Extremity Treadmill Testing (09/07/2024 9:04 AM PAN CLEANER) LV EF % CONS SCIMAGE Anatomical Region Laterality Modality Vascular Ultrasound 09/07/2024 8:25 AM PAN CLEANER Narrative 09/07/2024 9:05 AM PAN CLEANER [facility] - Department of Vascular Surgery, Vascular Laboratory [address] [place] [id number] Lower Extremity Arterial Doppler Report Patient Name: RIVERA FREEMAN : 1950 Study Date: 09/07/2024 8:25:00 AM Gender: M Tech: Ashlie Washington [facility] Location: [facility] SERVICES Ref Provider: ANICETO FOLEY Quality: Adequate Order Provider: ANICETO FOLEY PROCEDURES: Arterial Report: Bilateral lower extremity arterial Doppler exam at rest. INDICATIONS: I70.213 Atherosclerosis of jamul arteries of extremities with intermittent claudication, bilateral legs. MEASUREMENTS: Right Value Units Left Value Units Rt Brachial Pressure 159 mmHg Lt Brachial Pressure 152 mmHg Rt SUPERVISOR ANODIZING Pressure 52 mmHg Lt SUPERVISOR ANODIZING Pressure 73 mmHg Rt DPA Pressure 41 mmHg Lt DPA Pressure 75 mmHg Rt 1st Digit Pressure 29 mmHg Lt 1st Digit Pressure 45 mmHg Rt PT TORREY Resting 0.33 Lt PT TORREY Resting 0.46 Rt AT TORREY Resting 0.26 Lt AT TORREY Resting 0.47 Rt Digit/Arm Index 0.18 Lt Digit/Arm Index 0.28 Right Value Units Left Value Units - FINDINGS: Performing Cardiovascular Specialist: Ashlie Washington RVT. Right Common Femoral Artery [...] above. Electronically Signed By: Avery Zamudio MD [facility] [phone] 09/07/2024 9:03:57 AM PAN CLEANER Procedure Note Avery Zamudio MD - 09/07/2024 [facility] - Department of Vascular Surgery,Vascular Laboratory [address] [place] [address] Lower Extremity Arterial Doppler Report Patient Name: RIVERA FREEMAN : 1950 Study Date: 09/07/2024 8:25:00 AM Gender: M Tech: Ashlie Washington RVT Location: [facility] Provider: ANICETO FOLEY Quality: Adequate Order Provider: ANICETO FOLEY PROCEDURES: Arterial Report: Bilateral lower extremity arterial Doppler exam at rest. INDICATIONS: I70.213 Atherosclerosis of jamul arteries of extremities withintermittent claudication, bilateral legs. MEASUREMENTS: Right Value Units Left ValueUnits Rt Brachial Pressure 159 mmHg Lt Brachial Pressure 152mmHg Rt SUPERVISOR ANODIZING Pressure 52 mmHg Lt SUPERVISOR ANODIZING Pressure 73mmHg Rt DPA Pressure 41 mmHg Lt DPA Pressure 75mmHg Rt 1st Digit Pressure 29 mmHg Lt 1st Digit Pressure 45mmHg Rt PT TORREY Resting 0.33 Lt PT TORREY Resting 0.46 Rt AT TORREY Resting 0.26 Lt AT TORREY Resting 0.47 Rt Digit/Arm Index 0.18 Lt Digit/Arm Index 0.28 Right Value Units Left ValueUnits - FINDINGS: Performing Cardiovascular Specialist: Ashlie Washington RVT. Right Common Femoral Artery [...] above. Electronically Signed By: Avery Zamudio MD [facility] [phone] 09/07/2024 9:03:57 AM PAN CLEANER Aniceto Foley MD IMG US PROCEDURES Final Resul t * Cardiology Document Scan (07/15/2024 4:58 PM PAN CLEANER) Anatomical Region Laterality Modality Other Mariangel Palmer MD [facility] PRO CEDURES Final Result * Cardiology Document Scan (07/15/2024 4:55 PM PAN CLEANER) Anatomical Region Laterality Modality Other Mariangel Palmer MD CV CARDIAC SERVICES PRO CEDURES Final Result * Cardiology Document Scan (07/14/2024 4:12 PM PAN CLEANER) Anatomical Region Laterality Modality Other Taras Euceda MD CV CARDIAC SERVICES PROCEDURES F inal Result * Cardiology Document Scan (07/13/2024 4:10 PM PAN CLEANER) Anatomical Region Laterality Modality Other Sanchez Morgan MD CV CARDIAC SERVICES PROCE DURES Final Result * Cardiology Document Scan (07/11/2024 4:08 PM PAN CLEANER) Anatomical Region Laterality Modality Other Caro Roper NP CV CARDIAC SERVICES PROCEDUR [...] on 2018. Triglycerides 115 <=149 mg/dL [facility] Comment: Interpretive Data Ages < or = [...] on 2018. HDL 37(L) >=40 mg/dL [facility] Comment: Interpretive Data Ages < or [...] on 2018. LDL, calculated 67 <=129 mg/dL [facility] Comment: Interpretive Data Ages < or [...] revised on 2018. Non-HDL Cholesterol 90 mg/dL [facility] Comment: Interpretive Data Ages < or [...] last revised on 2018. Chol/HDL ratio [address] [facility] Blood 03/22/2024 10:2 3 AM CDT 03/22/2024 10:52 AM CDT us Antonette Rater [employer]ION SECRETARY LAB BLOOD ORDERABLES Final Resul t [facility] [place] [address] * CTA Abdominal Aorta And Bilateral Iliofemoral [...] * (ABNORMAL) Hemoglobin A1c (09/22/2023 12:19 PM PAN CLEANER) Hgb A1C 6.0(H) 4.0 - 5.6 % [facility] Estimated Average Glucose 126 mg/dL [facility] Comment: The ADA recommends reporting an estimated Average Glucose (eAG) with all Hemoglobin A1c results using the equation derived from a study of 507 normal and diabetic adults. Minority populations were underrepresented and children were not included. (Diabetes Care 2020; 43(S1): S66-S76). The eAG is not equivalent to a fasting glucose. Blood 09/22/2023 12:1 9 PM PAN CLEANER 09/22/2023 12:45 PM PAN CLEANER Chicho Clayton MD LAB BLOOD ORDERABLES Final Resul t [facility] Department [place] [address] from Last 3 Months or Most Recently Relevant to Health Maintenance Insurance DR [address] [place] [id number] [facility] MEDICARE [facility] DR [address] [place] [phone] MEDICARE [facility] Advance Directives For more information, please contact: [phone] * Full Code (Latest Code Status on File) Date Activated Date Inactivated Comments 10/30/2022 5:29 PM 10/31/2022 7:15 PM * Full Code Date Activated Date Inactivated Comments 08/16/2019 9:46 AM 08/16/2019 5:30 PM Care Teams Candy Packer Relationship Specialty Start Date End Date Fuentes Orellana MD PCP - General 11/28/16 Itz Iyer MD [address] [place] [address] Consulting Physician Urology 05/31/18 Shawnee Mckinney MD [address] [place] [address] Referring Physician Urology 06/03/18 Chicho Clayton MD [address] [place] [address] Medical Oncologist/Hematologis t Medical Oncology 06/07/18 Maria Guadalupe Palacios, RN Registered Nurse 06/10/18 Lupillo Davenport MD Referring Physician Radiation Oncology 06/16/18 Danis Meza NP [address] [facility] [address] [place] [address] Nurse Practitioner Urology 10/06/22 Antonette Owens NP [address] [facility] [place] [address] Nurse Practitioner Cardiovascular Disease 10/06/22 Aniceto Foley MD [id number] [place] [address] Surgeon Vascular Surgery 10/31/22
[2024-10-11 14:44] LABS: Alanine Aminotransferase 22 U/L (6-50); Albumin Level 3.5 g/dL (3.5-5.1); Alkaline Phosphatase 85 U/L (38-126); Anion Gap 9 mmol/L (4-12); Aspartate Amino Transferase 22 U/L (17-59); Bilirubin,Total 0.5 mg/dL (0.2-1.3); Blood Urea Nitrogen 43 mg/dL (9-20); Carbon Dioxide 23 mmol/L (22-30); Chloride 105 mmol/L (98-107); Cholesterol 143 mg/dL (0-200); Estimated Glomerular Filt Rate 38; Glucose 145 mg/dL (65-110); HDL Direct 33 mg/dL; Potassium 4.2 mmol/L (3.4-5.0); Sodium 137 mmol/L (137-145); Triglycerides 264 mg/dL (<150)
[2024-10-11 14:45] LABS: Phosphorus 3.5 mg/dL (2.5-4.5)
[2024-10-11 14:47] LABS: Creatinine Urine 73.1 mg/dL; Total Protein Urine Random 67 mg/dL; Ur Ttl Prot Creatinine Ratio 0.92 mg/mg (0-0.20)
[2024-10-11 14:55] LABS: LDL Cholesterol Direct 67 mg/dL; Parathyroid Intact 82.9 pg/mL (14.5-75.2)
[2024-10-11 14:56] LABS: Creatinine Urine 73.1 mg/dL
[2024-10-11 15:02] LABS: Microalbumin Urine Random 108.9 mg/L (0-16.7)
[2024-10-11 15:17] LABS: Vitamin D 25 Hydroxy 44.1 ng/mL
== END 2024-10-11 13:43 | disposition home or self-care (01) ==
PROVIDERS: PCP Family Medicine; Referring Provider Internal Medicine; Visit Provider Internal Medicine Nephrology
DX: N18.31 Chronic kidney disease, stage 3a (principal); E11.9 Type 2 diabetes mellitus without complications; E78.2 Mixed hyperlipidemia; E55.9 Vitamin D deficiency, unspecified
CPT/HCPCS: 36415; 80053; 80061; 82043; 82306; 82570; 83970; 84100; 84156; 85027

== ENCOUNTER 2024-12-15 14:32 | Outpatient (CLI) | payer MEDICARE, SELFPAY ==
--- NOTE | ~2024-12-15 | CT_ITS ---
CT of the Abdomen and Pelvis: Indication: Umbilical hernia Technique: 2.5 mm axial scans were obtained through the abdomen and pelvis following intravenous adm inistration of 100 cc of Omnipaque 350. Dose reduction technique was used on this scan by utilizing a utomated exposure control and iterative reconstruction technique. The dose-length product (DLP) was 5 80.86 mGy-cm. Findings: Scans through the lung bases are unremarkable. The liver, spleen, pancreas, gallbladder, adrenals and kidneys are within normal limits. There are se rell atherosclerotic calcifications of the aorta. Aortic stent graft is present at the aortic bifurca tion region extending to the common iliac arteries. There is extensive severe stenosis of the common iliac arteries and the distal abdominal aorta, including proximal to the level of the stent graft.. No lymphadenopathy. No bowel obstruction or bowel wall thickening. There is no evidence to suggest acute appendicitis. Images through the pelvis were performed. Urinary bladder unremarkable. Status post prostatectomy. No ascites. Mild compression over L4 present. Impression: No hernia evident. Penile implant reservoir is present in the left lower quadrant anteriorly. Severe atherosclerotic disease of the aorta and iliac arteries with extensive severe stenosis. Stent graft present at the aortic bifurcation extending to the common iliac arteries bilaterally. Reviewed, dictated and finalized at location . Impression: No hernia evident. Penile implant reservoir is present in the left lower quadra nt anteriorly. Severe atherosclerotic disease of the aorta and iliac arteries with extensive s evere stenosis. Stent graft present at the aortic bifurcation extending to the common iliac arteries bilaterally.
[2024-12-15 14:54] LABS: Estimated Glomerular Filt Rate 46
== END 2024-12-15 14:33 | disposition home or self-care (01) ==
LOC: MICIMG 14:33
PROVIDERS: PCP Family Medicine; Visit Provider Surgery
DX: I70.0 Atherosclerosis of aorta (principal); I70.8 Atherosclerosis of other arteries; Z95.820 Peripheral vascular angioplasty status with implants and grafts; Z96.89 Presence of other specified functional implants; K42.9 Umbilical hernia without obstruction or gangrene
CPT/HCPCS: 74177; Q9967

== ENCOUNTER 2024-12-17 16:39 | Emergency (ER) | payer MEDICARE, SELFPAY ==
--- NOTE | ~2024-12-17 | CT_ITS ---
CT abdomen pelvis w con Ordering provider: Ari Rao MD History: 74 years Male with . Pelvic pain status post urological implant . Comparison: December 15, 2024 Technique: CT abdomen and pelvis with IV and without oral contrast. Automated exposure control and it erative reconstruction technique were employed. The dose-length product was 446.33 mGy-cm. 100 mL Omn ipaque 350 was given IV. Findings: VISUALIZED LOWER CHEST: Normal. UPPER ABDOMINAL ORGANS: Liver: Normal. Gallbladder: Normal. Spleen: Normal. Stomach/duodenum: Small sliding hiatus hernia. Pancreas: Normal. Adrenals: Normal. Kidneys: Tiny cyst in the left kidney upper pole. PELVIC ORGANS: The bladder is underfilled with thickened wall. Evaluation for cystitis advised. Penile Prosthesis is noted. BOWEL AND MESENTERY: Colon: Is no evidence of diverticulitis. Normal appendix. Small Bowel: Normal. No obstruction. Peritoneum/mesentery: No free air or free fluid. No mesenteric lymphadenopathy. RETROPERITONEUM: Severe atheromatous disease of the abdominal aorta. Moderate narrowing of the aorta is seen in the area below the renal arteries. Stents are seen in the common iliac arteries. No retro peritoneal lymphadenopathy. MUSCULOSKELETAL: Superficial soft tissues: Small fat-containing umbilical hernia. Otherwise, The superficial soft tiss ues are normal. Bones: Age appropriate degenerative changes of the spine. Small sclerotic areas in the right and left iliac bones unchanged. IMPRESSION: 1. No evidence of appendicitis, diverticulitis or intestinal obstruction. 2. Narrowing of the aorta just distal to the renal arteries. Further evaluation advised. 3. Small sliding hiatus hernia. Reviewed, dictated and finalized at location A. IMPRESSION: 1. No evidence of appendicitis, diverticulitis or intestinal obstruction. 2. Narrowing of the aorta just distal to the renal arteries. Further evaluatio n advised. 3. Small sliding hiatus hernia.
--- OUTSIDE RECORDS SUMMARY | 2024-12-17 16:42 | XMS_ITS | Clinical Summary ---
Author Organization [facility] Address [address], [facility] [address] [place] [address] Phone Care Team Providers Care Gold Leaf Laborer Name Role Phone Fuentes Orellana MD Primary Care Provider [phone] Brent Dickinson DO Unavailable [phone] Faviola Jiménez DEER FARMER, TOOTH POLISHER Unavailable Shawnee Mckinney MD Unavailable Chicho Clayton MD Unavailable Lai Lambert DEER FARMER, TOOTH POLISHER Unavailable [phone] Kami Meneses MD Unavailable [phone] Anette Bond MD Unavailable [phone] Kay Gordon DEER FARMER, TOOTH POLISHER Unavailable Kami Meneses MD Unavailable [phone] Allergies No known active allergies Medications [...] Release Take 400 mg by mouth. 4 12/25/19 25 Active Kerendia 10 MG Tablet Take 1 Tablet by mouth daily. 4 Active amLODIPine (NORVASC) 5 MG Tablet Take 5 mg by mouth daily. 4 Active Tradjenta 5 MG Tablet Take 5 mg by mouth every morning. 4 Active telmisartan (MICARDIS) 80 MG Tablet Take 80 mg by mouth. 4 05/26/20 25 Active famotidine (PEPCID) 20 MG TabletIndicatio ns:Gastroesopha [...] and Location) 30 g 3 5 Active GLIMEPIRIDE PO Take by mouth. Active Glucagon, rDNA, (GLUCAGON EMERGENCY IJ) by Injection route. 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 Iron deficiency anemia 02/15/2020 Collagenous colitis 07/22/2016 Gastroesophageal reflux disease 07/22/2016 Hx of colonic polyps 07/22/2016 Encounters Date Type Department Care Team Description 12/16/2024 10:45 AM CDT Office Visit [facility] [address] [place] [address] Kami Meneses MD Stress incontinence (female) (male) (Primary Dx) Discharge Disposition: Discharged to home or Selfcare 12/16/2024 Telephone [facility] [address] [place] [address] Kami Meneses MD 12/16/2024 Travel 10/26/2024 Telephone [facility] [address] [place] [address] Kami Meneses MD Pre-surgical question 09/27/2024 Results Follow-Up [facility] [address] [place] [address] Kami Meneses MD 09/26/2024 Telephone [facility] [address] [place] [address] Kami Meneses MD Results 09/23/2024 11:30 AM MANAGER OF FINANCE Clinical Support [facility] [address] [facility] [address] NurseKody Urology UTI symptoms (Primary Dx) Discharge Disposition: Discharged to home or Selfcare 09/23/2024 Telephone [facility] [address] [facility] [place] [address] Kami Meneses MD Rash 09/23/2024 Travel from Last 3 Months Immunizations Immunization Administration Dates Next Due Covid-19, Mrna, Lnp-s, Pf, 30 Mcg/0.3 Ml Dose (P fizer) 11/24/2020,11/01/2020 Influenza Vaccine, MDCK,quadrivalent, pres free 05/31/2019,06/15/2018 [...] 15 1 - 06/13/1985 Smokeless Tobacco: Never Tobacco Cessation:Counseling Given: Not Answered Comments:quit 33 years ago Alcohol Use Standard [...] 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 Not on file Not on file Not on cory e Last Filed Vital Signs Vital Sign Reading Time Taken Comments Blood Pressure 134/64 12/16/2024 10:20 AM CDT Pulse 68 12/16/2024 10:20 AM CDT Temperature 36.4 C (97.6 F) 08/10/2024 9:53 AM MANAGER OF FINANCE Respiratory Rate 18 12/16/2024 10:20 AM CDT Oxygen Saturation 98% 12/16/2024 10:20 AM CDT Inhaled Oxygen Concentration - - Weight 76.2 kg (168 lb) 12/16/2024 10:20 AM CDT Height 162.6 cm (5' 4 ) 12/16/2024 10:20 AM CDT Body Mass Index 28.84 12/16/2024 10:20 AM CDT Plan of Treatment Upcoming Encounters Date Type Department Care Team (Late st Contact Info) Description 01/27/2025 9:45 AM CDT Office Visit [facility] [address] [place] [address] Kami Meneses MD [address] [facility], [address] [address] Health Maintenance Due Date Last Done Comments [...] DTaP/Tdap/Td Immunization Discontinued 10/07/2020 Influenza Immunization Completed 4, 08/25/2023, 06/27/2022, Additional history exists Hepatitis B [...] Comments CULTURE, URINE Routine 09/23/2024 12:47 PM MANAGER OF FINANCE UTI symptoms HM COLONOSCOPY Routine 05/24/2020 from Last 3 Months or Most Recently Relevant to Health Maintenance Results * CULTURE, URINE (09/23/2024 12:47 PM MANAGER OF FINANCE) CULTURE RESULTS ENTEROCOCCUS FAECALIS 09/26/2024 10:14 AM MANAGER OF FINANCE [facility] Culture (Pre-Op Catheter) Non-Phlebotomy Collection / Unknown 09/23/2024 12:47 PM MANAGER OF FINANCE 09/23/2024 12:47 PM MANAGER OF FINANCE Narrative [facility] - 09/26/2024 10:14 AM MANAGER OF FINANCE Susceptibility not performed on enterococcus species. Due [...] [facility] VITEK II 1 mcg/ml: Susceptible us Kami Gleason MD MICROBIOLOGY - GENERAL ORDERAB LES Final Result [facility] [address] [place] [address], [place] * COLONOSCOPY (05/24/2020) Brent Dickinson DO PROCEDURE/MINOR SURGICAL ORDERA BLES Final Result from Last 3 Months or Most Recently Relevant to Health Maintenance Insurance MEDICARE [facility] Care Teams Gold Leaf Laborer Relationship Specialty Start Date End Date Fuentes Orellana MD [address] [address] PCP - General Family Medicine 07/06/15 Brent Dickinson [place] [address] [address] Gastroenterology 06/27/16 Faviola Jiménez, DEER FARMER, TOOTH POLISHER [address] [address] Nurse Practitioner Advanced Practice Nurse 07/22/16 Shawnee Mckinney MD [address] [facility] [address] [place] [address] Urologist Urology 06/07/19 Chicho Clayton MD [address] [facility] [address] [place] [address] Oncology 06/13/19 Lai Lambert APRN, TOOTH POLISHER [address] [place] [address] Nurse Practitioner Advanced Practice Nurse 02/10/23 Kami Meneses MD [address] [address] Consulting Physician Urology 06/16/23 Anette Bond MD [address] [place] [address] Consulting Physician Gastroenterology 12/25/22 Kay Gordon APRN, TOOTH POLISHER [address] [place] [address] Nurse Practitioner Advanced Practice Nurse 06/16/24 Kami Meneses MD [address] [address] Consulting Physician Urology 08/19/24
--- OUTSIDE RECORDS SUMMARY | 2024-12-17 16:42 | XMS_ITS | Clinical Summary ---
Author Organization [facility] [address] Address [address] [place] [address] Care Team Providers Care Business Unit Controller Name Role Phone Fuentes Orellana MD Primary Care Provider Itz Iyer MD Unavailable [phone] Shawnee Mckinney MD Unavailable [phone] Chicho Clayton MD Unavailable Maria Guadalupe Palacios RN Unavailable Unava ilable Lupillo Davenport MD Unavailable [phone] Danis Meza WELDING EQUIPMENT SALES REPRESENTATIVE Unavailable Antonette Owens NP Unavailable Aniceto Foley MD Unavailable [phone] Allergies No known active allergies Medications ACCU-CHEK DANNY PLUS TEST STRP strip U [...] total) by mouth every morning 1 Active Kerendia 10 mg tablet Take 1 tablet by mouth every morning 4 Active nitroglycerin (NITROSTAT) 0.3 mg SL tabletIndicatio ns:acute episode of anginal pain Place 1 tablet (0.3 mg total) under the tongue every 5 (five) minutes as needed for chest pain 25 tablet 3 4 08/09/20 25 Active metoprolol tartrate (LOPRESSOR) 25 mg immediate release tabletIndicatio ns:Coronary artery disease involving [place] coronary artery of [place] heart without angina pectoris Take 1 tablet (25 mg total) by mouth 2 (two) times a day 90 tablet 3 4 Active alendronate (FOSAMAX) 70 mg tablet Take 1 tablet (70 mg total) by mouth every 7 days Take in the morning with a full glass of water, on an empty stomach, and do not take anything else by mouth or lie down for the next 30 min. Active cholecalciferol (Vitamin D3) 5,000 unit tablet Take 1 tablet (5,000 Units total) by mouth Active ticagrelor (Brilinta) 60 mg tabletIndicatio ns:Thrombosis Prevention after PCI Take 1 tablet (60 mg total) by mouth 2 (two) times a day 180 tablet 3 5 Active aspirin 81 mg enteric coated tablet Take 1 tablet (81 mg total) by mouth every morning Active chlorthalidone (HYGROTON) 25 mg tablet Take 1 tablet (25 mg total) by mouth every morning Active telmisartan (MICARDIS) 80 mg tablet Take 1 tablet (80 mg total) by mouth every morning Active amLODIPine (NORVASC) 5 mg tablet Take 1 tablet (5 mg total) by mouth every morning Active pantoprazole DR (PROTONIX) 40 mg EC tablet Take 1 tablet (40 mg total) by mouth every morning Active linaGLIPtin (TRADJENTA) 5 mg tabletIndicatio ns:type 2 diabetes mellitus Take 1 tablet (5 mg total) by mouth every morning Active rosuvastatin (CRESTOR) 40 mg tablet TAKE 1 TABLET(40 MG) BY MOUTH DAILY 30 tablet 3 5 Active HYDROcodone-elizabet taminophen (NORCO) 5-325 mg per tabletIndicatio ns:Pain Take 1 tablet by mouth every 6 (six) hours as needed for pain 15 tablet 5 Active Additional Information Patient not taking.Reported on 12/09/2024 cephalexin (KEFLEX) 500 mg capsuleIndicati ons:Prophylaxis , Medical Take 1 capsule (500 mg total) by mouth 2 (two) times a day 12 capsule 5 Active Additional Information Patient not taking.Reported on 12/09/2024 glimepiride (AMARYL) 1 mg tablet Take 1 tablet (1 mg total) by mouth daily before breakfast 5 Active Gvoke HypoPen 2-Pack 1 mg/0.2 mL auto-injector 5 Active Active Problems Problem Noted Date Diagnosed Date Stress incontinence 10/12/2024 Penile pain 12/04/2022 Assessment & Plan (12/04/2022 [...] (10/21/2022): Added automatically from request for surgery [id number] Assessment & Plan (10/30/2022 2:56 PM GEOSCIENCES ASSOCIATE PROFESSOR): - OR 3/2 for planned R CEA - OU status, Q2h NV/VS monitoring - Bedrest today, OOB/PT POD #1 - SBP goal 100-160, nicardipine for elevated BP - Continue aspirin and statin - Plan to stager home medications and resume overnight Atherosclerosis of [place] ar teries of extremities with intermittent claudication, bilateral legs 06/03/2022 Melanoma 01/10/2021 Anxiety 01/10/2021 DM (diabetes mellitus) 01/10/2021 Assessment & Plan (10/30/2022 9:59 AM GEOSCIENCES ASSOCIATE PROFESSOR): - A1c 7.6% 10/2022 - SSI while inpatient - CC diet when eating Elevated left ventricular end-diastolic pressure (LVEDP) 11/15/2019 Encounter for surgical after care following surgery of circulatory system 05/20/2019 Prostate cancer 09/10/2018 Assessment & Plan (10/27/2018 9:53 AM GEOSCIENCES ASSOCIATE PROFESSOR): Follows with urology, has his PSA monitored it is increasing, but still WNL 1.4 Assessment & Plan (09/22/2018 11:35 AM GEOSCIENCES ASSOCIATE PROFESSOR): Has close follow up with his oncologist. His PSA was slightly elevated on last check. Hyperlipidemia 09/21/2017 Assessment & Plan (06/30/2018 9:38 AM CDT): His last lipid panel was within acceptable range; he will continue on a high intensity statin. Assessment & Plan (09/21/2017 11:34 AM GEOSCIENCES ASSOCIATE PROFESSOR): Continue Lipitor 40 mg daily. Essential hypertension 07/20/2017 Assessment & Plan (10/30/2022 2:57 PM GEOSCIENCES ASSOCIATE PROFESSOR): - Tight BP goals post-procedure - Continue home medications as indicated by BP goals as above, staggering overnight for gentle BP control Assessment & Plan (10/27/2018 9:54 AM GEOSCIENCES ASSOCIATE PROFESSOR): Hypertension is unchanged. Dietary sodium restriction. Blood pressure will be reassessed in 4 weeks. Assessment & Plan (09/22/2018 11:38 AM GEOSCIENCES ASSOCIATE PROFESSOR): Hypertension remains elevated. He is increasing his [...] today Assessment & Plan (09/21/2017 11:33 AM GEOSCIENCES ASSOCIATE PROFESSOR): Blood pressure is well controlled today. Last visit we added HCTZ 12.5 mg daily. Continue current medications Assessment & Plan (08/10/2017 11:26 AM GEOSCIENCES ASSOCIATE PROFESSOR): Blood pressure is not controlled. Add hydrochlorothiazide 12.5 mg p.o. daily. He is compliant with medications but always add salt to food which I advised him not to do that. Assessment & Plan (07/20/2017 9:19 AM GEOSCIENCES ASSOCIATE PROFESSOR): Blood pressure remains uncontrolled. We will order renal Doppler ultrasound to rule out renal artery stenosis given the fact that he has peripheral vascular disease and coronary artery disease. I will increase amlodipine from 5-10 mg p.o. daily. If that does not control the blood pressure we will add hydrochlorothiazide 12.5 mg p.o. Daily. Coronary artery disease invo lving [place] coronary artery of [place] heart without angina pectoris 07/20/2017 Assessment & Plan (10/30/2022 9:58 AM GEOSCIENCES ASSOCIATE PROFESSOR): - Continue home medications as able - Maintained on Brilinta as an outpatient; held 1 week prior to OR - Will discuss with surgery team when to safely resume post-procedure Assessment & Plan (10/27/2018 9:59 AM GEOSCIENCES ASSOCIATE PROFESSOR): Coronary artery disease is improving with lifestyle modifications. Continue current treatment regimen. Cardiac status will be reassessed in 3 months. No chest pain. Minimal SOB. Continue asa, statin, brilinta Assessment & Plan (09/22/2018 11:36 AM GEOSCIENCES ASSOCIATE PROFESSOR): Coronary artery disease is unchanged. Regular aerobic [...] BB. Assessment & Plan (09/21/2017 11:33 AM GEOSCIENCES ASSOCIATE PROFESSOR): Continue aspirin, Brilinta, Toprol XL and atorvastatin. Assessment & Plan (08/10/2017 11:27 AM GEOSCIENCES ASSOCIATE PROFESSOR): Continue Brilinta and aspirin. Asymptomatic. Assessment & Plan (07/20/2017 9:19 AM GEOSCIENCES ASSOCIATE PROFESSOR): Continue aspirin, Brilinta, Lipitor , metoprolol PVD (peripheral vascular disease) 07/20/2017 Assessment & Plan (10/27/2018 9:21 AM GEOSCIENCES ASSOCIATE PROFESSOR): S/P bilateral ALVA angioplasty; right EIA angioplasty/stent 11/21/14. S/P aortoiliac angioplasty/stent 05/28/09. Continues on asa, statin and brilinta Assessment & Plan (09/21/2017 11:34 AM GEOSCIENCES ASSOCIATE PROFESSOR): He follows up with vascular surgery at [facility] Assessment & Plan (08/10/2017 11:27 AM GEOSCIENCES ASSOCIATE PROFESSOR): Renal ultrasound suggest more than 60% stenosis in the right renal artery and infrarenal stenosis 50-70%. He follows up with Dr. Foley from vascular surgery at [facility] Assessment & Plan (07/20/2017 9:20 AM GEOSCIENCES ASSOCIATE PROFESSOR): Patient will follow up with Dr. Foley from vascular surgery. He does have some claudication when he walks. Intrinsic urethral sphincter deficiency 06/08/20 15 Resolved Problems Problem Noted Date Diagnosed Date Resolved Date Dizzinesses 10/27/2018 02/09/2019 Assessment & Plan (10/27/2018 10:17 AM GEOSCIENCES ASSOCIATE PROFESSOR): Persistent dizziness. Has stopped caffeine intake. Has [...] implant or graft 6 02/09/2019 Atherosclerosis of [place] artery of extremity 04/15/20 16 02/09/2019 Assessment & Plan (09/22/2018 11:26 AM GEOSCIENCES ASSOCIATE PROFESSOR): 80% circumflex s/p RICHARD. Moderate 30 % LAD with bridging Impotence of organic origin 09/18/2015 02/09/2019 Urinary tract infection 01/18/201501/29 Incontinence 01/18/2015 02/09/2019 Stricture, urethra 07/31/2011 9 Overview (12/10/2017): Description: Dilation 06/09/11 Nocturia 11/28/2010 02/09/2019 Hypertension 05/16/2009 02/09/2019 Assessment & Plan (10/27/2018 10:11 AM GEOSCIENCES ASSOCIATE PROFESSOR): Hypertension is {improving/stable/worsenin}. {plan; hypertension for POC:[id number]} Blood pressure will be reassessed {plan; follow-up 2 weeks/4weeks/3months:[id number]}. Increase amolodipine to 10 mg Continue all [...] Encounters Date Type Department Care Team Description 12/09/2024 1:00 PM CDT Office Visit [facility] Cardiology [address] [place] [phone] Kay Ward NP Coronary artery disease of [place] artery of [place] heart with stable angina pectoris (Primary Dx); Orthostatic hypotension; LVH (left ventricular hypertrophy); PVD (peripheral vascular disease); Preoperative cardiovascular examination 11/10/2024 Telephone [facility] Home Care Services [address] [place] [address] Cheryl Bundy 11/09/2024 7:30 AM CDT - 11/09/2024 10:00 AM CDT Surgery [facility] Operating Room [address] [place] [phone] Kami Meneses MD Cystoscopy 11/09/2024 7:30 AM CDT Anesthesia Event [facility] Operating Room [address] [place] [phone] Lai Gregg DO [place], Justin Kyle, CRNA 11/09/2024 5:14 AM CDT - 11/12/2024 2:30 PM CDT Hospital Encounter [address] [phone] Kami Meneses MD Intrinsic urethral sphincter deficiency (Primary Dx) Discharge Disposition: Discharge to home, home health skilled care 10/26/2024 12:45 PM GEOSCIENCES ASSOCIATE PROFESSOR Pre-Admission Testing [facility] Pre Anesthesia Testing [address] [place] [address] Stress incontinence 10/20/2024 10:30 AM GEOSCIENCES ASSOCIATE PROFESSOR Office Visit [facility] Cardiology [address] [place] [address] Kay Ward NP Coronary artery disease of [place] artery of [place] heart with stable angina pectoris (Primary Dx); Preoperative cardiovascular examination; Orthostatic hypotension; LVH (left ventricular hypertrophy); PVD (peripheral vascular disease) 10/13/2024 Telephone [facility] Medical [facility] Cardiology [address] [place] [address] Mariangel Palmer MD cardiac clearance 09/27/2024 11:45 AM GEOSCIENCES ASSOCIATE PROFESSOR Office Visit [facility] Oncology [facility] [address] [place] [address] Chicho Clayton MD Prostate cancer (HCC) (Primary Dx) 09/27/2024 11:00 AM GEOSCIENCES ASSOCIATE PROFESSOR Lab [facility] - Lab Collection [address] [facility] [place] [address] [place] [address] Prostate cancer (HCC) 09/27/2024 10:45 AM GEOSCIENCES ASSOCIATE PROFESSOR Lab [facility] Oncology Lab [facility] Floor [address] [place] [address] Prostate cancer (HCC) from Last 3 Months Immunizations Immunization Administration Dates Next Due Adenovirus 05/03/2018 Influenza, [...] and right EIA angioplasty/stent '15, aortoiliac stent '. CATARACT EXTRACTION W/ INTRAOCULAR LENS IMPLANT Right ANGIO SELECTIVE CAROTID RECEPTIONIST/TELEPHONE OPERATOR RIGHT 10/15/2022 Right MELANOMA RESECTION 12/17/2014 Right [...] repair. Medical History Medical History Date Comments History of melanoma 12/17/2014 Melanoma Rig ht cheek & posterior neck s/p excision 11/2014 Hypertension Dxd Hyperlipidemia Coronary artery disease s/p sten t 2016 DVT (deep venous thrombosis) (HCC) 2009 h/o DVT LLE s/p knee surgery 2009-- Treated with blood thinner for ~6 months Erectile dysfunction Type 2 diabetes mellitus (HCC) Osteoarthritis Glaucoma Status post radiation therapy 2005 pr ostate cancer History of prostate cancer Prost ate CA s/p prostatectomy 03/2005 and radiation (last 2005) Anxiety History of pulmonary embolism 2009 s/ p knee surgery 2009-- Treated with blood thinner for ~6 months GERD (gastroesophageal reflux disease) CKD (chronic kidney disease) stage 3, GFR 30-59 ml/min (HCC) PVD (peripheral vascular disease) Family History Medical History Relation Name Comments [...] drink = 0.6 oz pu re alcohol) [facility] Utilities Answer Date Recorded In the past 12 months has th e electric, gas, oil, or water company threatened to shut off services in your home? No 11/11/2024 Social Connection and Isolat ion Panel [NHANES] Answer Date Recorded In a typical week, how many times do you talk on the phone with family, friends, or neighbors? More than three times a week 11/11/2024 How often do you get togethe r with friends or relatives? Once a week 11/11/2024 How often do you attend chur ch or cheondoism services? More than 4 times per year 11/11/2024 Do you belong to any clubs o r organizations such as episcopal groups, unions, fraternal or athletic groups, or school groups? Yes 11/11/2024 How often do you attend meet ings of the clubs or organizations you belong to? 1 to 4 times per year 11/11/2024 Are you , , di vorced, , never , or living with a partner? 11/11/2024 AUDIT-C Answer Date Recorded Q1: How often do you have a drink containing alcohol? 4 or more times a week 10/26/2024 Q2: How many drinks containi ng alcohol do you have on a typical day when you are drinking? 1 or 2 Q3: How often do you have si x or more drinks on one occasion? Never 10/26/2024 Overall Financial Resource Strain (CARDIA) Answe r Date Recorded How hard is it for you to pa y for the very basics like food, housing, medical care, and heating? Not hard at all 11/11/2024 Hunger Vital Sign Answer Date Recorded Within the past 12 months, y ou worried that your food would run out before you got the money to buy more. Never true 11/12/19 25 Within the past 12 months, t he food you bought just didn't last and you didn't have money to get more. Never true 11/11/2024 PRAPARE - Transportation Answer Date Re corded In the past 12 months, has l ack of transportation kept you from medical appointments or from getting medications? No 10/29 In the past 12 months, has l ack of transportation kept you from meetings, work, or from getting things needed for daily living? No 11/11/2024 Housing Stability Vital Sign Answer Prince e Recorded In the last 12 months, was t here a time when you were not able to pay the mortgage or rent on time? No 11/11/2024 Number of Times Moved in the Last Year Not on fi le 11/11/2024 At any time in the past [address] [facility], were you homeless or living in a snf (including now)? No 11/11/2024 Personal Safety Answer Date Recorded Have you ever been in or are you currently in a harmful physical or emotional relationship or is someone making you feel afraid or unsafe? Denies 11/09/2024 Sex and Gender Information Value Date Recorded Sex Assigned at Not on file Legal Sex Male 12:32 AM GEOSCIENCES ASSOCIATE PROFESSOR Gender Identity Not on file Sexual Orientation Choose not to disclose 2018 8:58 AM CDT Occupation Industry Job 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 Date retired Not on file Not on file Not on file Obstetrics History Last Filed Vital Signs Vital Sign Reading Time Taken Comments Blood Pressure 122/46 12/09/2024 1:02 PM CDT Pulse 65 12/09/2024 1:02 PM CDT Temperature 36.7 C (98 F) 11/12/2024 1:09 PM CDT Respiratory Rate 20 11/12/2024 1:09 PM CDT Oxygen Saturation 98% 12/09/2024 1:02 PM CDT Inhaled Oxygen Concentration - - Weight 75.3 kg (166 lb) 12/09/2024 1:02 PM CDT Height 167.6 cm (5' 6 ) 12/09/2024 1:02 PM CDT Body Mass Index 26.79 12/09/2024 1:02 PM CDT Plan of Treatment Health Maintenance Due Date Last Done Comments Albumin Creatinine Ratio, Urine 1949 Colon Cancer Screening-Colonoscopy 1949 Depression Screening 1949 Hepatitis C Screening 1949 Dilated Eye Exam 1949 Foot Exam 1949 Hepatitis B Screening 1967 Zoster Vaccine (1 of 2) 1999 Well Visit 65+ 2014 Hemoglobin A1C 03/22/2024 09/22/2023, 03/01, 10/07/2022, Additional history exists Covid-19 Vaccine (3 - 2023-2 5 season) 2024 11/25/2020, 11/01/2020 Lipid Panel 03/22/2025 03/22/2024, 01/30, 10/31/2022, Additional history exists Fall Risk Assessment 11/12/2025 11/12/2024 eGFR 11/12/2025 11/12/2024, 10/29, 11/09/2024, Additional history exists DTaP/Tdap/Td Vaccine (2 - Td or Tdap) 10/07/2030 10/07/2020 Pneumococcal vaccine 65+ Completed 11/22/2014, 10/30 Abdominal Aortic Aneurysm (A AA) Screen Completed 12/15/2023, 06/02/2023, 06/06/2019, Additional history exists Influenza Vaccine Completed 06/06/2024, , 06/25/2021, Additional history exists Medical Devices Implanted Type Area Centrifugal Station Operator Device Identifier Shelf Expiration Date Model / Serial / Lot Other - See Comments-2014 Implanted:05/01 (Quantity not on file) Other - see comments Bladder Description:Bladder control Stent Stent Bilateral : Groin Description:Per pt 4-5 stent s Stent Stent N/A: Heart Stent Right: Eye Artificail Urinary Sphincter-2014 Implanted:03/2015 by Shawnee Mckinney MD (Quantity not on file) N/A: Urethra Description:05/08/2019 Placeme nt of artificial urinary sphincter with a 3.5 cm cuff and 61 to 70 cm pressure-regulating balloon. [employer] Vascu-Guard 8x.8cm Peripheral Patch Vascular Bovine Pericardium [id number] - [id number] Implanted:Qty: 1 on 10/30/2022 by Aniceto Foley MD at [facility] Right: Carotid [employer] [id number] 07/09/2023 [id number] / / [id number] [employer] [place] [employer] Sandra Ams 800 Kit Accessory Sterile Disposable Latex Free Urinary [id number] - [id number] Implanted:Qty: 1 on 11/09/2024 by Kami eMneses MD at [facility] N/A: Urethra [employer] [place] [employer] Sandra [id number] 03/09/2029 [id number] / / [id number] [employer] [employer] Sandra Cuff Urethral Ams 800 Inhibizone 3.5cm [id number] - [id number] Implanted:Qty: 1 on 11/09/2024 by Kami Meneses MD at [facility] N/A: Urethra [employer] [employer] Sandra [id number] 02/22/2026 [id number] / / [id number] [employer] [employer] Sandra Ams 800 Pressure Balloon Sphincter 61-70cu Cm Implant Urological [id number] - [id number] Implanted:Qty: 1 on 11/09/2024 by Kami Meneses MD at [facility] N/A: Abdomen [employer] [place] [employer] Sandra [id number] 03/20/2029 [id number] / / [id number] [employer] [employer] Sandra Ams 800 Control Pump Sphincter Implant Urological Inhibizone [id number] - [id number] Implanted:Qty: 1 on 11/09/2024 by Kami Meneses MD at [facility] N/A: Scrotum [employer] [employer] Sandra [id number] 02/15/2026 [id number] / / [id number] Procedures Procedure Name Priority Date/Time Associated Diagnosis Comments POCT GLUCOSE DEVICE Routine 11/12/2024 1 1:38 AM CDT EGFR Routine 11/12/2024 8:15 AM CDT BASIC METABOLIC PANEL Routine 11/12/2024 8:15 AM CDT POCT GLUCOSE DEVICE Routine 11/12/2024 5 :49 AM CDT POCT GLUCOSE DEVICE Routine 11/11/2024 8 :22 PM CDT POCT GLUCOSE DEVICE Routine 11/11/2024 5 :14 PM CDT POCT GLUCOSE DEVICE Routine 11/11/2024 1 1:29 AM CDT EGFR Routine 11/11/2024 7:48 AM CDT DIFFERENTIAL AUTO Routine 11/11/2024 7:4 8 AM CDT CBC WITH AUTO DIFFERENTIAL Routine 11/11/2024 7:48 AM CDT GENTAMICIN LEVEL RANDOM Routine 11/11/2024 7:48 AM CDT BASIC METABOLIC PANEL Routine 11/11/2024 7:48 AM CDT POCT GLUCOSE DEVICE Routine 11/11/2024 6 :41 AM CDT POCT GLUCOSE DEVICE Routine 11/10/2024 8 :11 PM CDT POCT GLUCOSE DEVICE Routine 11/10/2024 4 :46 PM CDT POCT GLUCOSE DEVICE Routine 11/10/2024 1 2:00 PM CDT POCT GLUCOSE DEVICE Routine 11/10/2024 7 :38 AM CDT POCT GLUCOSE DEVICE Routine 11/09/2024 8 :32 PM CDT POCT GLUCOSE DEVICE Routine 11/09/2024 5 :35 PM CDT EGFR Routine 11/09/2024 4:58 PM CDT BASIC METABOLIC PANEL Routine 11/09/2024 4:58 PM CDT POCT GLUCOSE DEVICE Routine 11/09/2024 1 0:08 AM CDT POCT GLUCOSE DEVICE Routine 11/09/2024 9 :20 AM CDT MI AN PROCEDURE PLACEHOLDER Routine 11/09/2024 7:54 AM CDT MI AN ELECTIVE ENDOTRACHEAL AIRWAY Routine 11/09/2024 7:54 AM CDT ARTIFICIAL URINARY SPHINCTER 11/09/2024 7:32 AM CDT Stress incontinence CYSTOSCOPY 11/09/2024 7:32 AM CDT Stress incontinence POCT GLUCOSE DEVICE Routine 11/09/2024 6 :43 AM CDT URINALYSIS, MICROSCOPIC ONLY Routine 10/26/2024 1:43 PM GEOSCIENCES ASSOCIATE PROFESSOR Stress incontinence URINALYSIS AND REFLEX TO MICROSCOPIC AND CULTURE Routine 10/26/2024 1:43 PM GEOSCIENCES ASSOCIATE PROFESSOR Stress incontinence EGFR Routine 09/27/2024 10:40 AM GEOSCIENCES ASSOCIATE PROFESSOR Prostate cancer (HCC) DIFFERENTIAL AUTO Routine 09/27/2024 10: 40 AM GEOSCIENCES ASSOCIATE PROFESSOR Prostate cancer (HCC) CBC WITH AUTO DIFFERENTIAL Routine 09/27/2024 10:40 AM GEOSCIENCES ASSOCIATE PROFESSOR Prostate cancer (HCC) COMPREHENSIVE METABOLIC PANEL Routine 09/27/2024 10:40 AM GEOSCIENCES ASSOCIATE PROFESSOR Prostate cancer (HCC) LACTATE DEHYDROGENASE Routine 09/27/2024 10:40 AM GEOSCIENCES ASSOCIATE PROFESSOR Prostate cancer (HCC) PSA DIAGNOSTIC Routine 09/27/2024 10:40 AM GEOSCIENCES ASSOCIATE PROFESSOR Prostate cancer (HCC) LIPID PANEL Routine 03/22/2024 10:23 AM CDT Coronary artery disease involving [place] coronary artery of [place] heart without angina pectoris CTA ABDOMINAL AORTA AND BILATERAL ILIOFEMORAL RUNOFF Schedule Routine, Read Routine (OP Routine) 12/15/2023 1:56 PM CDT PVD (peripheral vascular disease) HEMOGLOBIN A1C Routine 09/22/2023 12:19 PM GEOSCIENCES ASSOCIATE PROFESSOR Prostate cancer (HCC) from Last 3 Months or Most Recently Relevant to Health Maintenance Results * POCT glucose (11/12/2024 11:38 AM CDT) Pathologist [facility] Glucose, POC 151 70 - 199 mg/dL Comment: For Glucose values <35 mg/dl when Hematocrit is >60 mg/dl,the test may not accurately detect significant hypoglycemia,and testing in the Laboratory should be considered if clinically indicated. Blood 11/12/2024 11:3 8 AM CDT 11/12/2024 11:38 AM CDT us Kami Gleason MD LAB POCT ORDERABLES - DEVICE F inal Result [facility] [address] Department [place] [address] * (ABNORMAL) eGFR (11/12/2024 8:15 AM CDT) [facility] eGFR 59(L) >=60 mL/min/1. 73 m2 Comment: Interpretive Data [...] interpretive data was last reviewed 2021. Blood 11/12/2024 8:15 AM CDT 11/12/2024 9:17 AM CDT us Kalinacedric Ramirez [place] WELDING EQUIPMENT SALES REPRESENTATIVE LAB BLOOD ORDERABLES Fi nal Result [facility] [address] [place], [place] [id number] * (ABNORMAL) Basic metabolic panel (11/12/2024 8:15 AM CDT) Sodium 138 135 - 145 mmol/L Potassium, pl 4.2 3.3 - 4.9 mmol/L [facility] Chloride 106 97 - 110 mmol/L [facility] CO2 21(L) 22 - 32 mmol/L [facility] Anion gap 11 2 - 15 mmol/L [facility] BUN 28(H) 6 - 25 mg/dL [facility] Creatinine 1.26 0.80 - 1.30 mg/dL [facility] Glucose 136 70 - 199 mg/dL [facility] Comment: Interpretive Data Fasting glucose >/= [...] interpretive data was last revised 2022. Calcium 9.2 8.5 - 10.3 mg/dL [facility] Blood 11/12/2024 8:15 AM CDT 11/12/2024 9:17 AM CDT us Kalina Ramirez [place] WELDING EQUIPMENT SALES REPRESENTATIVE LAB BLOOD ORDERABLES Fi nal Result [facility] [address] [place] [address] * POCT glucose (11/12/2024 5:49 AM CDT) Glucose, POC 125 70 - 199 mg/dL Comment: For Glucose values <35 mg/dl when Hematocrit is >60 mg/dl,the test may not accurately detect significant hypoglycemia,and testing in the Laboratory should be considered if clinically indicated. Blood 11/12/2024 5:49 AM CDT 11/12/2024 5:49 AM CDT Result [facility] LAB POCT ORDERABLES - DEVICE F inal Result Performing Organization Address [facility] Co de Phone Number [facility] [address] [facility] [place] [address] * (ABNORMAL) POCT glucose (11/11/2024 8:22 PM CDT) Glucose, POC 214(H) 70 - 199 mg/dL Comment: For Glucose values <35 mg/dl when Hematocrit is >60 mg/dl,the test may not accurately detect significant hypoglycemia,and testing in the Laboratory should be considered if clinically indicated. Blood 11/11/2024 8:22 PM CDT 11/11/2024 8:22 PM CDT Result [facility] Gle[facility] MD LAB POCT ORDERABLES - DEVICE F inal Result Performing Organization Address [facility] de Phone Number [facility] [address] [place] [address] * POCT glucose (11/11/2024 5:14 PM CDT) Glucose, POC 127 70 - 199 mg/dL Comment: For Glucose values <35 mg/dl when Hematocrit is >60 mg/dl,the test may not accurately detect significant hypoglycemia,and testing in the Laboratory should be considered if clinically indicated. Blood 11/11/2024 5:14 PM CDT 11/11/2024 5:14 PM CDT Result [facility] Gle[facility] MD LAB POCT ORDERABLES - DEVICE F inal Result Performing Organization Address [facility] Co de Phone Number [facility] [address] [place] [address] * POCT glucose (11/11/2024 11:29 AM CDT) [facility] Glucose, POC 144 70 - 199 mg/dL Comment: For Glucose values <35 mg/dl when Hematocrit is >60 mg/dl,the test may not accurately detect significant hypoglycemia,and testing in the Laboratory should be considered if clinically indicated. Blood 11/11/2024 11:2 9 AM CDT 11/11/2024 11:29 AM CDT Kami Gleason MD LAB POCT ORDERABLES - DEVICE F inal Result [facility] [address] [place] [address] * (ABNORMAL) eGFR (11/11/2024 7:48 AM CDT) [facility] eGFR 48(L) >=60 mL/min/1. 73 m2 Comment: Interpretive Data [...] interpretive data was last reviewed 2021. Blood 11/11/2024 7:48 AM CDT 11/11/2024 8:16 AM CDT us Kami Gleason MD LAB BLOOD ORDERABLES Final Res ult [facility] [address] [place] [address] * Differential, auto (11/11/2024 7:48 AM CDT) Neutrophil abs 5.4 1.5 - 6.5 K/cumm Imm gran abs 0.0 0.0 - 0.1 K/cumm [facility] Lymphocyte abs 1.8 0.8 - 3.3 K/cumm [facility] Monocyte abs 0.8 0.2 - 0.8 K/cumm [facility] Eosinophil abs 0.2 0.0 - 0.5 K/cumm [facility] Basophil abs 0.0 0.0 - 0.1 K/cumm [facility] Neutrophil pct 65.8 % [facility] Comment: Interpretive Data Percent cell count reference ranges are not reported, since discordance with absolute values may lead to misinterpretation of CBC data. Current Interpretive Data was last revised on 2017. Imm gran pct 0.5 % [facility] Comment: Interpretive Data Percent cell count reference ranges are not reported, since discordance with absolute values may lead to misinterpretation of CBC data. Current Interpretive Data was last revised on 2017. Lymphocyte pct 21.7 % [facility] Comment: Interpretive Data Percent cell count reference ranges are not reported, since discordance with absolute values may lead to misinterpretation of CBC data. Current Interpretive Data was last revised on 2017. Monocyte pct 10.0 % [facility] Comment: Interpretive Data Percent cell count reference ranges are not reported, since discordance with absolute values may lead to misinterpretation of CBC data. Current Interpretive Data was last revised on 2017. Eosinophil pct 1.8 % [facility] Comment: Interpretive Data Percent cell count reference ranges are not reported, since discordance with absolute values may lead to misinterpretation of CBC data. Current Interpretive Data was last revised on 2017. Basophil pct 0.2 % [facility] Comment: Interpretive Data Percent cell count reference ranges are not reported, since discordance with absolute values may lead to misinterpretation of CBC data. Current Interpretive Data was last revised on 2017. Blood 11/11/2024 7:48 AM CDT 11/11/2024 8:[address] [facility] [place] [employer] SALES REPRESENTATIVE LAB BLOOD ORDERABLES Fi nal Result Performing Organization Address [facility] Co de Phone Number [facility] [address] [place] [address] * (ABNORMAL) CBC with auto differential (11/11/2024 7:48 AM CDT) WBC 8.2 3.8 - 9.9 K/cumm Hgb 11.1(L) 13.0 - 17.5 g/dL [facility] Hct 34.8(L) 38.9 - 50.3 % [facility] Plt 175 150 - 400 K/cumm [facility] MPV 11.0 9.1 - 12.3 fL [facility] RBC 3.63(L) 4.30 - 5.80 M/cumm [facility] MCV 95.9 81.3 - 96.4 fL [facility] MCH 30.6 27.1 - 33.3 pg [facility] MCHC 31.9(L) 32.3 - 35.7 g/dL [facility] RDW CV 14.2 11.1 - 14.9 % [facility] RDW SD 50.2(H) 35.7 - 48.1 fL [facility] NRBC abs 0.00 0.00 - 0.01 K/cumm [facility] Blood 11/11/2024 7:48 AM CDT 11/11/2024 8:[address] [facility] [place] [employer] SAL[employer] REPRESENTATIVE LAB BLOOD ORDERABLES Fi nal Result Performing Organization Address City/[facility]/ZIP Co de Phone Number [facility] [address] [place] [address] * Gentamicin level random (11/11/2024 7:48 AM CDT) Gentamicin random 9.8 mcg/mL Comment: Interpretive Data No reference ranges have been established for random drug levels. Current Interpretive Data was last revised on 2020. Blood 11/11/2024 7:48 AM CDT 11/11/2024 8:16 AM CDT Kami Gleason MD LAB BLOOD ORDERABLES Final Res ult [facility] [address] [place] [address] * (ABNORMAL) Basic metabolic panel (11/11/2024 7:48 AM CDT) Pathologist [facility] Sodium 134(L) 135 - 145 mmol/L Potassium, pl 4.0 3.3 - 4.9 mmol/L [facility] Chloride 101 97 - 110 mmol/L [facility] CO2 24 22 - 32 mmol/L [facility] Anion gap 9 2 - 15 mmol/L [facility] BUN 35(H) 6 - 25 mg/dL [facility] Creatinine 1.50(H) 0.80 - 1.30 mg/dL [facility] Glucose 136 70 - 199 mg/dL [facility] Comment: Interpretive Data Fasting glucose >/= [...] interpretive data was last revised 2022. Calcium 9.4 8.5 - 10.3 mg/dL [facility] Blood 11/11/2024 7:48 AM CDT 11/11/2024 8:16 AM CDT Kami Gleason MD LAB BLOOD ORDERABLES Final Res ult Performing Organization Address [facility] Co de Phone Number [facility] [address] [facility] [place], [place] [id number] * POCT glucose (11/11/2024 6:41 AM CDT) Glucose, POC 155 70 - 199 mg/dL Comment: For Glucose values <35 mg/dl when Hematocrit is >60 mg/dl,the test may not accurately detect significant hypoglycemia,and testing in the Laboratory should be considered if clinically indicated. Blood 11/11/2024 6:41 AM CDT 11/11/2024 6:41 AM CDT Kami Gleason MD LAB POCT ORDERABLES - DEVICE F inal Result Performing Organization Address [facility] de Phone Number [facility] [address] [facility] [place] [address] * POCT glucose (11/10/2024 8:11 PM CDT) Glucose, POC 179 70 - 199 mg/dL Comment: For Glucose values <35 mg/dl when Hematocrit is >60 mg/dl,the test may not accurately detect significant hypoglycemia,and testing in the Laboratory should be considered if clinically indicated. Blood 11/10/2024 8:11 PM CDT 11/10/2024 8:11 PM CDT [facility] LAB POCT ORDERABLES - DEVICE F inal Result Performing Organization Address [facility] Co de Phone Number [facility] [address] [facility] [place], [place] [id number] * POCT glucose (11/10/2024 4:46 PM CDT) Glucose, POC 134 70 - 199 mg/dL Comment: For Glucose values <35 mg/dl when Hematocrit is >60 mg/dl,the test may not accurately detect significant hypoglycemia,and testing in the Laboratory should be considered if clinically indicated. Blood 11/10/2024 4:46 PM CDT 11/10/2024 4:46 PM CDT [facility] MD LAB POCT ORDERABLES - DEVICE F inal Result Performing Organization Address [facility] Co de Phone Number [facility] [address] [facility] [place], [place] [id number] * POCT glucose (11/10/2024 12:00 PM CDT) Glucose, POC 98 70 - 199 mg/dL Comment: For Glucose values <35 mg/dl when Hematocrit is >60 mg/dl,the test may not accurately detect significant hypoglycemia,and testing in the Laboratory should be considered if clinically indicated. Blood 11/10/2024 12:0 0 PM CDT 11/10/2024 12:00 PM CDT [facility] MD LAB POCT ORDERABLES - DEVICE F inal Result Performing Organization Address [facility] de Phone Number [facility] [address] [facility] [place], [place] [id number] * POCT glucose (11/10/2024 7:38 AM CDT) Glucose, POC 112 70 - 199 mg/dL Comment: For Glucose values <35 mg/dl when Hematocrit is >60 mg/dl,the test may not accurately detect significant hypoglycemia,and testing in the Laboratory should be considered if clinically indicated. Blood 11/10/2024 7:38 AM CDT 11/10/2024 7:38 AM CDT [facility] MD LAB POCT ORDERABLES - DEVICE F inal Result Performing Organization Address [facility] Co de Phone Number [facility] [address] [facility] [place] [address] * (ABNORMAL) POCT glucose (11/09/2024 8:32 PM CDT) Glucose, POC 222(H) 70 - 199 mg/dL Comment: For Glucose values <35 mg/dl when Hematocrit is >60 mg/dl,the test may not accurately detect significant hypoglycemia,and testing in the Laboratory should be considered if clinically indicated. Blood 11/09/2024 8:32 PM CDT 11/09/2024 8:32 PM CDT [facility] Gle[facility] MD LAB POCT ORDERABLES - DEVICE F inal Result Performing Organization Address [facility] Co de Phone Number [facility] [address] [place] [address] * POCT glucose (11/09/2024 5:35 PM CDT) [facility] Glucose, POC 171 70 - 199 mg/dL Comment: For Glucose values <35 mg/dl when Hematocrit is >60 mg/dl,the test may not accurately detect significant hypoglycemia,and testing in the Laboratory should be considered if clinically indicated. Blood 11/09/2024 5:35 PM CDT 11/09/2024 5:35 PM CDT [facility] MD LAB POCT ORDERABLES - DEVICE F inal Result Performing Organization Address [facility] Co de Phone Number [facility] [address] [place] [address] * (ABNORMAL) eGFR (11/09/2024 4:58 PM CDT) [facility] eGFR 53(L) >=60 mL/min/1. 73 m2 Comment: Interpretive Data [...] interpretive data was last reviewed 2021. Blood 11/09/2024 4:58 PM CDT 11/09/2024 5:50 PM CDT us Kami Gleason MD LAB BLOOD ORDERABLES Final Res ult [facility] [address] [place] [address] * (ABNORMAL) Basic metabolic panel (11/09/2024 4:58 PM CDT) Sodium 134(L) 135 - 145 mmol/L Potassium, pl 4.6 3.3 - 4.9 mmol/L [facility] Chloride 101 97 - 110 mmol/L [facility] CO2 21(L) 22 - 32 mmol/L [facility] Anion gap 12 2 - 15 mmol/L [facility] BUN 29(H) 6 - 25 mg/dL [facility] Creatinine 1.39(H) 0.80 - 1.30 mg/dL [facility] Glucose 203(H) 70 - 199 mg/dL [facility] Comment: Interpretive Data Fasting glucose >/= [...] classification and Diagnosis of Diabetes Diabetes Care 2022; 46: [id number]. Current interpretive data was last revised 2022. Calcium 10.0 8.5 - 10.3 mg/dL [facility] Blood 11/09/2024 4:58 PM CDT 11/09/2024 5:50 PM CDT [facility] MD LAB BLOOD ORDERABLES Final Res ult Performing Organization Address [facility] Co de Phone Number [facility] [address] [facility] [place] [address] * POCT glucose (11/09/2024 10:08 AM CDT) Glucose, POC 167 70 - 199 mg/dL Comment: For Glucose values <35 mg/dl when Hematocrit is >60 mg/dl,the test may not accurately detect significant hypoglycemia,and testing in the Laboratory should be considered if clinically indicated. Blood 11/09/2024 10:0 8 AM CDT 11/09/2024 10:08 AM CDT Kami Gleason MD LAB POCT ORDERABLES - DEVICE F inal Result Performing Organization Address [facility] de Phone Number [facility] [address] [facility] [place] [address] * POCT glucose (11/09/2024 9:20 AM CDT) Glucose, POC 163 70 - 199 mg/dL Comment: For Glucose values <35 mg/dl when Hematocrit is >60 mg/dl,the test may not accurately detect significant hypoglycemia,and testing in the Laboratory should be considered if clinically indicated. Blood 11/09/2024 9:20 AM CDT 11/09/2024 9:20 AM CDT Kami Gleason MD LAB POCT ORDERABLES - DEVICE F inal Result Performing Organization Address [facility] Co de Phone Number [facility] [address] [place] [address] * MI AN ELECTIVE ENDOTRACHEAL AIRWAY, MI AN PROCEDURE PLACEHOLDER (11/09/2024 7:54 AM CDT) Narrative Jorge Sun CRNA - 11/09/2024 7:54 AM CDT Jorge Sun CRNA 11/09/2024 7:55 AM Airway Patient location: OR Urgency: elective Indications for airway management: anesthesia and airway protection Difficult airway: no Staff: Supervising provider: Lai Gregg DO Placed by: COLLATERAL SPECIALIST: Jorge Sun CRNA Emergent airway documentation: Risks and benefits discussed: yes Consent obtained: yes Consent given by: patient Airway prep: Preoxygenated: yes Patient position: sniffing MILS maintained throughout: yes Mask difficulty assessment: 2 - vent by mask + OA or adjuvant Spontaneous ventilation during airway: absent Sedation level during airway: deep Final airway details: Final airway type: endotracheal airway Tube type: ETT ETT size: 7.5 mm Cuffed: yes Technique used for successful ETT placement: video laryngoscopy Devices/Methods used in placement: stylet Insertion site: oral Blade type: Renata Video blade type: Ervin Blade size: 4 Cormack-Lehane (direct): grade IIa - partial view of glottis Cuff volume: 8 mL Cuff inflated with: air ETT to teeth: 19 cm Placement verified by: CO2 detection Airway secured with: silk tape Number of attempts: 1 us Lai Gregg DO ANESTHESIA ORDERAB LES Final Result * POCT glucose (11/09/2024 6:43 AM CDT) Glucose, POC 135 70 - 199 mg/dL Comment: For Glucose values <35 mg/dl when Hematocrit is >60 mg/dl,the test may not accurately detect significant hypoglycemia,and testing in the Laboratory should be considered if clinically indicated. Blood 11/09/2024 6:43 AM CDT 11/09/2024 6:43 AM CDT us Kami Gleason MD LAB POCT ORDERABLES - DEVICE F inal Result [facility] [address] Department [place] [address] * (ABNORMAL) Urinalysis reflex to microscopic and culture Urine, bladder (10/26/2024 1:43 PM GEOSCIENCES ASSOCIATE PROFESSOR) Color, ur Straw Yellow Clarity, ur Clear Clear [facility] Specific gravity, ur 1.010 1.003 - 1.030 [facility] pH, urine 6.5 [facility] Comment: Interpretive Data U rine pH is affected by diet, medications, systemic acid-base disturbances, and renal tubular function. pH may affect urinary stone formation. For example, urine pH below 6.0 may help reduce the tendency for calcium phosphate stones and pH greater than 6.0 may reduce the tendency for uric acid stone formation. Source: [facility] Current Interpretive Data was last revised on 2017 Protein, ur ql Trace Negative [facility] Glucose, ur ql Negative Negative [facility] Ketones, ur Negative Negative [facility] Bilirubin, ur Negative Negative [facility] Blood, ur 1+(A) Negative [facility] Urobilinogen, ur <2.0 <2.0 mg/dL [facility] Nitrite, ur Negative Negative [facility] Leukocyte esterase, ur Negative Negative [facility] UA reflex comment Reflex to microscopic UA will be performed. [facility] Urine, bladder 10/26/2024 1: 43 PM GEOSCIENCES ASSOCIATE PROFESSOR 10/26/2024 2:03 PM GEOSCIENCES ASSOCIATE PROFESSOR Kami Gleason MD LAB MICROBIOLOGY - GENERAL ORD ERABLES Final Result Performing Organization Address City/[facility]/ZIP Co de Phone Number [facility] [address] Department [place] [address] * Urinalysis, microscopic only (10/26/2024 1:43 PM GEOSCIENCES ASSOCIATE PROFESSOR) WBC, ur 0-5 0 - 5 /HPF RBC, ur 0-2 0 - 2 /HPF [facility] Culture Reflex Comment Reflex conditions for urine culture (WBC >10) not met. [facility] Urine, bladder 10/26/2024 1: 43 PM GEOSCIENCES ASSOCIATE PROFESSOR 10/26/2024 2:03 PM GEOSCIENCES ASSOCIATE PROFESSOR Kami Gleason MD LAB URINE ORDERABLES Final Res ult [facility] [address] Department [place] [address] * (ABNORMAL) eGFR (09/27/2024 10:40 AM GEOSCIENCES ASSOCIATE PROFESSOR) eGFR 42(L) >=60 mL/min/1. 73 m2 Comment: [...] reviewed 2021. Blood 09/27/2024 10:4 0 AM GEOSCIENCES ASSOCIATE PROFESSOR 09/27/2024 10:57 AM GEOSCIENCES ASSOCIATE PROFESSOR us Chicho Clayton MD LAB BLOOD ORDERABLES Final Resul t [facility] [place] [address] * (ABNORMAL) Differential, auto (09/27/2024 10:40 AM GEOSCIENCES ASSOCIATE PROFESSOR) Neutrophil abs 7.8(H) 1.5 - 6.5 K/cumm Comment:Testing performed by : [facility], [address] [place] [phone] Lymphocyte abs 1.5 0.8 - 3.3 K/cumm [facility] Comment:Testing performed by : [facility], [address] [place] [phone] Monocyte abs 0.6 0.2 - 0.8 K/cumm [facility] Comment:Testing performed by : [facility], [address] [place] [phone] Eosinophil abs 0.1 0.0 - 0.5 K/cumm [facility] Comment:Testing performed by : [facility], [address] [place] [phone] Basophil abs 0.1 0.0 - 0.1 K/cumm [facility] Comment:Testing performed by : [facility], [address] [place] [phone] Neutrophil pct 77.5 % [facility] Comment: Interpretive Data Percent cell count reference ranges are not reported, since discordance with absolute values may lead to misinterpretation of CBC data. Current Interpretive Data was last revised on 2017. Testing performed by: [facility], [address] [place] [phone] Lymphocyte pct 14.9 % [facility] Comment: Interpretive Data Percent cell count reference ranges are not reported, since discordance with absolute values may lead to misinterpretation of CBC data. Current Interpretive Data was last revised on 2017. Testing performed by: [facility], [address] [place] [phone] Monocyte pct 5.7 % [facility] Comment: Interpretive Data Percent cell count reference ranges are not reported, since discordance with absolute values may lead to misinterpretation of CBC data. Current Interpretive Data was last revised on 2017. Testing performed by: [facility], [address] [place] [phone] Eosinophil pct 1.3 % [facility] Comment: Interpretive Data Percent cell count reference ranges are not reported, since discordance with absolute values may lead to misinterpretation of CBC data. Current Interpretive Data was last revised on 2017. Testing performed by: [facility], [address] [place] [address] Basophil pct 0.6 % [facility] Comment: Interpretive Data Percent cell count reference ranges are not reported, since discordance with absolute values may lead to misinterpretation of CBC data. Current Interpretive Data was last revised on 2017. Testing performed by: [facility], [address] [place] [address] Blood 09/27/2024 10:4 0 AM GEOSCIENCES ASSOCIATE PROFESSOR 09/27/2024 10:56 AM GEOSCIENCES ASSOCIATE PROFESSOR us Chicho Clayton MD LAB BLOOD ORDERABLES Final Resul t [facility] [place] [address] * (ABNORMAL) CBC with auto differential (09/27/2024 10:40 AM GEOSCIENCES ASSOCIATE PROFESSOR) WBC 10.0(H) 3.8 - 9.9 K/cumm Comment:Testing performed by : [facility], [address] [place] [address] Hgb 10.5(L) 13.0 - 17.5 g/dL [facility] Comment:Testing performed by : [facility], [address] [place] [address] Hct 30.8(L) 38.9 - 50.3 % [facility] Comment:Testing performed by : [facility], [address] [place] [address] Plt 206 150 - 400 K/cumm [facility] Comment:Testing performed by : [facility], [address] [place] [address] MPV 8.9 6.8 - 10.4 fL [facility] Comment:Testing performed by : [facility] [facility], [address] [place] [address] RBC 3.33(L) 4.30 - 5.80 M/cumm DARIN BRYSON Comment:Testing performed by : [facility], [address] [place] [address] MCV 92.4 81.3 - 96.4 fL DARIN BRYSON Comment:Testing performed by : [facility], [address] [place], [place] [phone] MCH 31.6 27.1 - 33.3 pg DARIN BRYSON Comment:Testing performed by : [facility], [address] [place], [place] [phone] MCHC 34.2 32.3 - 35.7 g/dL DARIN [facility] Comment:Testing performed by : [facility], [address] [place], [place] [phone] RDW CV 14.0 11.1 - 14.9 % DARIN [facility] Comment:Testing performed by : [facility], [address] [place], [place] [phone] NRBC abs 0.00 0.00 - 0.01 K/cumm DARIN [facility] Comment:Testing performed by : [facility], [address] [place], [place] [phone] Blood 09/27/2024 10:4 0 AM GEOSCIENCES ASSOCIATE PROFESSOR 09/27/2024 10:56 AM GEOSCIENCES ASSOCIATE PROFESSOR us Chicho Clayton MD LAB BLOOD ORDERABLES Final Resul t [facility] [place] [address] * PSA diagnostic (09/27/2024 10:40 AM GEOSCIENCES ASSOCIATE PROFESSOR) PSA-Total 5.26 <=6.20 ng/mL Comment: Interpretive Data [...] revised 22. Blood 09/27/2024 10:4 0 AM GEOSCIENCES ASSOCIATE PROFESSOR 09/27/2024 10:57 AM GEOSCIENCES ASSOCIATE PROFESSOR us Chicho Clayton MD LAB BLOOD ORDERABLES Final Resul t Performing Organization Address [facility] Co de Phone Number [facility] [place] [address] * Lactate dehydrogenase (LD) (09/27/2024 10:40 AM GEOSCIENCES ASSOCIATE PROFESSOR) Lactate dehydrogenase (LDH) 121 100 - 250 Units/L Blood 09/27/2024 10:4 0 AM GEOSCIENCES ASSOCIATE PROFESSOR 09/27/2024 10:57 AM GEOSCIENCES ASSOCIATE PROFESSOR us Chicho Clayton MD LAB BLOOD ORDERABLES Final Resul t Performing Organization Address [facility] de Phone Number [facility] Department [place] [address] * (ABNORMAL) Comprehensive metabolic panel (09/27/2024 10:40 AM GEOSCIENCES ASSOCIATE PROFESSOR) Pathologist [facility] Sodium 142 135 - 145 mmol/L Potassium, pl 4.1 3.3 - 4.9 mmol/L [facility] Chloride 108 97 - 110 mmol/L [facility] CO2 29 22 - 32 mmol/L [facility] Anion gap 5 2 - 15 mmol/L [facility] BUN 32(H) 6 - 25 mg/dL [facility] Creatinine 1.68(H) 0.80 - 1.30 mg/dL [facility] Glucose 182 70 - 199 mg/dL [facility] Comment: Interpretive Data Fasting glucose >/= [...] 2022. Calcium 10.4(H) 8.5 - 10.3 mg/dL [facility] Bilirubin, total 0.2 0.1 - 1.2 mg/dL [facility] Protein, pl 6.9 6.5 - 8.5 g/dL [facility] Albumin 3.7 3.5 - 5.0 g/dL [facility] Alk phos 102 40 - 130 Units/L [facility] ALT 14 7 - 55 Units/L [facility] AST 17 10 - 50 Units/L [facility] Blood 09/27/2024 10:4 0 AM GEOSCIENCES ASSOCIATE PROFESSOR 09/27/2024 10:57 AM GEOSCIENCES ASSOCIATE PROFESSOR us Chicho Clayton MD LAB BLOOD ORDERABLES Final Resul t [facility] [place] [address] * (ABNORMAL) Lipid panel (03/22/2024 10:23 AM [...] revised on 2018. Triglycerides 115 <=149 mg/dL [facility] Comment: Interpretive Data Ages < or [...] revised on 2018. HDL 37(L) >=40 mg/dL [facility] Comment: Interpretive Data Ages < or [...] on 2018. LDL, calculated 67 <=129 mg/dL [facility] Comment: Interpretive Data Ages < or [...] Pediatrics 2011;128:S213 2. NCEP Expert Panel. Circulation 2003;110:227 Current Interpretive Data was last revised on 2018. Non-HDL Cholesterol 90 mg/dL [facility] Comment: Interpretive Data Ages < or [...] last revised on 2018. Chol/HDL ratio 3 [facility] Blood 03/22/2024 10:2 3 AM CDT 03/22/2024 10:52 AM CDT us Antonette Rater WELDING EQUIPMENT SALES REPRESENTATIVE LAB BLOOD ORDERABLES Final Resul t [facility] [place] [address] * CTA Abdominal Aorta And Bilateral Iliofemoral [...] * (ABNORMAL) Hemoglobin A1c (09/22/2023 12:19 PM GEOSCIENCES ASSOCIATE PROFESSOR) Hgb A1C 6.0(H) 4.0 - 5.6 % [facility] Estimated Average Glucose 126 mg/dL [facility] Comment: The ADA recommends reporting an estimated Average Glucose (eAG) with all Hemoglobin A1c results using the equation derived from a study of 507 normal and diabetic adults. Minority populations were underrepresented and children were not included. (Diabetes Care 2020; 43(S1): S66-S76). The eAG is not equivalent to a fasting glucose. Blood 09/22/2023 12:1 9 PM GEOSCIENCES ASSOCIATE PROFESSOR 09/22/2023 12:45 PM GEOSCIENCES ASSOCIATE PROFESSOR Chicho Clayton MD LAB BLOOD ORDERABLES Final Resul t [facility] [place] [address] from Last 3 Months or Most Recently Relevant to Health Maintenance Insurance [facility] Member Subscriber Plan / Payer (Ef fective 2014-Present) Name:Rivera Freeman Relation to Subscriber:Self Name:Rivera Freeman Payer ID:[id number] Group ID:[id number] Type:COMMERCIAL Address: [address] [place] [id number] MEDICARE MEDICARE [facility] Member Subscriber Plan / Payer (Ef fective 2017-Present) Name:RIVERA FREEMAN Relation to Subscriber:Self Name:Rivera Freeman Payer ID:[id number] Group ID:[id number] Type:COMMERCIAL Address: [address] [place] [id number] MEDICARE [facility] MEDICARE [facility] Advance Directives For more information, please contact: [phone] * Full Code (Latest Code Status on File) Date Activated Date Inactivated Comments 11/09/2024 2:36 PM 11/12/2024 6:36 PM * Full Code Date Activated Date Inactivated Comments 10/30/2022 5:29 PM 10/31/2022 7:15 PM * Full Code Date Activated Date Inactivated Comments 08/16/2019 9:46 AM 08/16/2019 5:30 PM Care Teams Business Unit Controller Relationship Specialty Start Date End Date Schueler, Fuentes F., MD PCP - General 11/28/16 Itz Iyer MD [address] [place] [address] Consulting Physician Urology 05/31/18 Shawnee Mckinney MD [address] [place] [address] Referring Physician Urology 06/03/18 Chicho Clayton MD [address] [facility] [address] [place] [address] Medical Oncologist/Hematologis t Medical Oncology 06/07/18 Maria Guadalupe Palacios, RN Registered Nurse 06/10/18 Lupillo Davenport MD Referring Physician Radiation Oncology 06/16/18 Danis Meza NP [address] [facility] [address] [place] [address] Nurse Practitioner Urology 10/06/22 Antonette Owens NP [address] [facility] [address] [place] [address] Nurse Practitioner Cardiovascular Disease 10/06/22 Aniceto Foley MD [id number] [place] [address] Surgeon Vascular Surgery 10/31/22
--- OUTSIDE RECORDS SUMMARY | 2024-12-17 16:42 | XMS_ITS | Clinical Summary ---
Author Organization Unknown Care Team Providers Care Water Plant Maintenance Mechanic Name Role Phone PRABHJOT ESCOBAR, KIRK Unavailable Mikey MARTIN RN, ABI Unavailable Unavailable LOIS CRIMP SETTER, RICARDA Unavailable Unavailable MARCE PT, YANET Unavailable Unavailable [employer], DAPHNE Unavailable Unavailpatricia PAGE OT, TAMIE Unavailable Unavailable Payers Payer Name Policy Type Policy Number Effective Date Expira tion Date MEDICARE.[place] [id number] Problems Condition Name Condition Details Condition Category Status Onset Date Resolution Date Last Treatment Date Treating Clinician Comments ENCOUNTER FOR SURGICAL AFTCR FOLLOWING SURGERY ON THE SYS Active 11-10 00:00: 00 STRESS INCONTINENCE (FEMALE) (MALE) Active 11-10 00:00: 00 INTRINSIC SPHINCTER DEFICIENCY (ISD) Active 11-10 00:00: 00 HYPERTENSIVE CHRONIC KIDNEY DISEASE W 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 Active 08-31 00:00: 00 TYPE 2 DIABETES MELLITUS W DIABETIC CHRONIC KIDNEY DISEASE Active 08-31 00:00: 00 CHRONIC KIDNEY DISEASE, STAGE 3 UNSPECIFIED Active 08-31 00:00: 00 TYPE 2 DIABETES W DIABETIC PERIPHERAL ANGIOPATH W/O GANGRENE Active 08-31 00:00: 00 ATHSCL HEART DISEASE OF [place] CORONARY ARTERY W/O ANG PCTRS Active 08-31 00:00: 00 UNSPECIFIED OSTEOARTHRIT IS, UNSPECIFIED SITE Active 08-31 00:00: 00 ANXIETY DISORDER, UNSPECIFIED Active 08-31 00:00: 00 UNSPECIFIED GLAUCOMA Active 08-31 00:00: 00 GASTRO-ESOPH AGEAL REFLUX DISEASE WITHOUT ESOPHAGITIS Active 08-31 00:00: 00 HYPERLIPIDEM IA, UNSPECIFIED Active 08-31 00:00: 00 MALE ERECTILE DYSFUNCTION, UNSPECIFIED Active 08-31 00:00: 00 PRESENCE OF OTHER SPECIFIED FUNCTIONAL IMPLANTS Active 08-31 00:00: 00 ALF (CURRENT) USE OF ASPIRIN Active 08-31 00:00: 00 PRESENCE OF CORONARY ANGIOPLASTY IMPLANT AND GRAFT Active 08-31 00:00: 00 PRESENCE OF INTRAOCULAR LENS Active 08-31 00:00: 00 PERSONAL HISTORY OF OTHER VENOUS THROMBOSIS AND EMBOLISM Active 08-31 00:00: 00 PERSONAL HISTORY OF PULMONARY EMBOLISM Active 08-31 00:00: 00 PERSONAL HISTORY OF MALIGNANT MELANOMA OF SKIN Active 08-31 00:00: 00 Allergies, Adverse Reactions, Alerts Allergy Name Allergy Type Status Severity Reaction(s) Onset Date Inactive Date Treating Clinician Comments NO KNOWN ALLERGIES Propensity to adverse reactions Active 11-14 16:08: 17 Medications Ordered Medication Name Filled Medication Name Start Date Stop Date Current Medication? Ordering Clinician Indication Dosage Frequency Signature (SIG) Comments Components hydrocodone 5 mg-acetamin ophen 325 mg tablet 11-09 00:00: 00 Yes [id number] PAIN 1 tablet DAILY 1 tablet DAILY (route: oral) Med Classific ation: Analgesic , Anti-infl ammatory or Antipyret ic sulfamethox azole 800 mg-trimetho prim 160 mg tablet 11-12 00:00: 00 11-19 23:59 :00 No [id number] PROPHYLATIC 1 tablet 2 TIMES DAILY 1 tablet 2 TIMES DAILY (route: oral) Med Classific ation: Anti-Infe ctive Agents metoprolol tartrate 25 mg tablet 11-03 00:00: 00 Yes [id number] HIGH BLOOD PRESSURE 1 tablet 2 TIMES DAILY 1 tablet 2 TIMES DAILY (route: oral) Med Classific ation: Cardiovas cular Therapy Agents rosuvastati n 40 mg tablet 11-02 00:00: 00 Yes [id number] CHOLESTEROL 1 tablet DAILY 1 tablet DAILY (route: oral) Med Classific ation: Cardiovas cular Therapy Agents Brilinta 60 mg tablet 11-12 00:00: 00 Yes [id number] BLOOD THINNER 1 tablet 2 TIMES DAILY 1 tablet 2 TIMES DAILY (route: oral) Med Classific ation: Hematolog ical Agents acetaminoph en 500 mg tablet 11-12 00:00: 00 Yes [id number] NEEDED FOR PAIN 1-5/10 ON A 1-10 SCALE OR FEVER GREATER THAN 100.1 2 tablet EVERY 6 HOURS 2 tablet EVERY 6 HOURS (route: oral) Med Classific ation: Analgesic , Anti-infl ammatory or Antipyret ic alendronate 70 mg tablet 11-12 00:00: 00 Yes [id number] OSTEOARTHRI TIS 1 tablet WEEKLY 1 tablet WEEKLY (route: oral) Med Classific ation: Endocrine allopurinol 300 mg tablet 11-12 00:00: 00 Yes [id number] GOUT 1 tablet DAILY 1 tablet DAILY (route: oral) Med Classific ation: Gout and Hyperuric emia Therapy alprazolam 0.25 mg tablet 11-12 00:00: 00 Yes [id number] NEEDED FOR ANXIETY 1 tablet 3 TIMES DAILY 1 tablet 3 TIMES DAILY (route: oral) Med Classific ation: Central Nervous System Agents amlodipine 5 mg tablet 11-12 00:00: 00 Yes [id number] HIGH BLOOD PRESSURE 1 tablet DAILY 1 tablet DAILY (route: oral) Med Classific ation: Cardiovas cular Therapy Agents cephalexin 500 mg capsule 11-12 00:00: 00 11-18 23:59 :00 No [id number] PROPHYLATIC 1 capsule 2 TIMES DAILY 1 capsule 2 TIMES DAILY (route: oral) Med Classific ation: Anti-Infe ctive Agents chlorthalid one 25 mg tablet 11-12 00:00: 00 Yes [id number] HIGH BLOOD PRESSURE 1 tablet DAILY 1 tablet DAILY (route: oral) Med Classific ation: Cardiovas cular Therapy Agents Kerendia 10 mg tablet 11-12 00:00: 00 Yes [id number] KIDNEY DISEASE 1 tablet DAILY 1 tablet DAILY (route: oral) Med Classific ation: Cardiovas cular Therapy Agents pantoprazol e 40 mg tablet,ingrid yed release 11-12 00:00: 00 Yes [id number] GASTROESOPH AGEAL REFULX DISEASE 1 tablet DAILY 1 tablet DAILY (route: oral) Med Classific ation: Gastroint estinal Therapy Agents telmisartan 80 mg tablet 11-12 00:00: 00 Yes [id number] HIGH BLOOD PRESSURE 1 tablet DAILY 1 tablet DAILY (route: oral) Med Classific ation: Cardiovas cular Therapy Agents Tradjenta 5 mg tablet 11-12 00:00: 00 Yes [id number] DIABETES 1 tablet DAILY 1 tablet DAILY (route: oral) Med Classific ation: Endocrine nitroglycer in 0.3 mg sublingual tablet 11-12 00:00: 00 Yes [id number] NEEDED FOR CHEST PAIN 1 tablet EVERY 5 MINUTES TIMES 3 1 tablet EVERY 5 MINUTES TIMES 3 (route: sublingual ) Med Classific ation: Cardiovas cular Therapy Agents glimepiride 1 mg tablet 12-13 00:00: 00 Yes [id number] DIABETES 1 mg 2 TIMES DAILY 1 mg 2 TIMES DAILY (route: oral) Alternate Route: BY MOUTH. Med Classific ation: Endocrine Gvoke 1 mg/0.2 mL subcutaneou s solution 12-13 00:00: 00 Yes [id number] LOW BLOOD SUGAR Per instruc tions NEEDED Per instructio ns NEEDED (route: subcutaneo us) Alternate Route: SUBCUTANE OUS. Med Classific ation: Endocrine Vital Signs Vital Name Observation Time Observation Value Commen ts Temperature 2024-12-13 08:53:00.000 98 [degF] Temperature 2024-12-06 12:40:00.000 97.5 [degF] Temperature 2024-11-29 09:46:00.000 97.8 [degF] Temperature 2024-11-25 10:39:00.000 97.5 [degF] Temperature 2024-11-22 08:47:00.000 96.8 [degF] Temperature 2024-11-21 12:06:00.000 98.4 [degF] Temperature 2024-11-17 08:50:00.000 97.2 [degF] Temperature 2024-11-14 16:23:00.000 96.8 [degF] BMI (%) 2024-11-14 16:23:00.000 27 kg/m2 Height 2024-11-14 16:23:00.000 64 [in_us] Pulse 2024-12-13 08:53:00.000 64 /min Pulse 2024-12-06 12:40:00.000 62 /min Pulse 2024-11-29 09:46:00.000 66 /min Pulse 2024-11-25 10:39:00.000 76 /min Pulse 2024-11-22 08:47:00.000 72 /min Pulse 2024-11-21 12:06:00.000 66 /min Pulse 2024-11-17 08:50:00.000 72 /min Pulse 2024-11-14 16:23:00.000 72 /min O2 Saturation (%) 2024-12-13 08:53:00.000 100 % O2 Saturation (%) 2024-12-06 12:40:00.000 96 % O2 Saturation (%) 2024-11-29 09:46:00.000 99 % O2 Saturation (%) 2024-11-25 10:39:00.000 97 % O2 Saturation (%) 2024-11-22 08:47:00.000 98 % O2 Saturation (%) 2024-11-21 12:06:00.000 99 % O2 Saturation (%) 2024-11-17 08:50:00.000 96 % O2 Saturation (%) 2024-11-14 16:23:00.000 99 % Respirations 2024-12-13 08:53:00.000 16 /min Respirations 2024-12-06 12:40:00.000 16 /min Respirations 2024-11-29 09:46:00.000 16 /min Respirations 2024-11-25 10:39:00.000 18 /min Respirations 2024-11-22 08:47:00.000 18 /min Respirations 2024-11-21 12:06:00.000 16 /min Respirations 2024-11-17 08:50:00.000 18 /min Respirations 2024-11-14 16:23:00.000 16 /min Weight (lbs) 2024-12-13 08:53:00.000 161 [lb_av] Weight (lbs) 2024-12-06 12:40:00.000 162 [lb_av] Weight (lbs) 2024-11-29 09:46:00.000 159 [lb_av] Weight (lbs) 2024-11-25 10:39:00.000 160 [lb_av] Weight (lbs) 2024-11-21 12:06:00.000 160 [lb_av] Weight (lbs) 2024-11-14 16:23:00.000 160 [lb_av] Systolic Blood Pressure 2024-12-13 08:53:00.000 136 mm [Hg] Systolic Blood Pressure 2024-12-06 12:40:00.000 111 mm [Hg] Systolic Blood Pressure 2024-11-29 09:46:00.000 130 mm [Hg] Systolic Blood Pressure 2024-11-25 10:39:00.000 138 mm [Hg] Systolic Blood Pressure 2024-11-22 08:47:00.000 140 mm [Hg] Systolic Blood Pressure 2024-11-21 12:06:00.000 120 mm [Hg] Systolic Blood Pressure 2024-11-17 08:50:00.000 117 mm [Hg] Systolic Blood Pressure 2024-11-14 16:23:00.000 126 mm [Hg] Diastolic Blood Pressure 2024-12-13 08:53:00.000 64 mm [Hg] Diastolic Blood Pressure 2024-12-06 12:40:00.000 54 mm [Hg] Diastolic Blood Pressure 2024-11-29 09:46:00.000 58 mm [Hg] Diastolic Blood Pressure 2024-11-25 10:39:00.000 68 mm [Hg] Diastolic Blood Pressure 2024-11-22 08:47:00.000 60 mm [Hg] Diastolic Blood Pressure 2024-11-21 12:06:00.000 52 mm [Hg] Diastolic Blood Pressure 2024-11-17 08:50:00.000 68 mm [Hg] Diastolic Blood Pressure 2024-11-14 16:23:00.000 54 mm [Hg] Plan of Treatment Planned Activity Planned Date Details Comments Future Scheduled Test RN TO OBSE RVE, ASSESS, EVALUATE, AND DEVELOP AN INDIVIDUALIZED PLAN OF CARE. AGENCY MAY ACCEPT ORDERS FROM CONSULTING PHYSICIANS KIRK RICK MD RN TO OBSERVE AND ASSESS, CRIMP SETTER/DAYCARE ASSISTANT TO OBSERVE FOR RISK FOR FALLS AND INSTRUCT IN FALL PREVENTION, HOME SAFETY, MEDICATION MANAGEMENT, INFECTION PREVENTION, AND NUTRITION MANAGEMENT. RN/CRIMP SETTER/DAYCARE ASSISTANT NURSE MAY PERFORM O2 SATURATION LEVEL ON ADMISSION, EVERY VISIT AND PRN FOR SHORTNESS OF BREATH FOR RN TO ASSESS/CRIMP SETTER TO OBSERVE PATIENT, WITH NOTIFICATION TO THE PHYSICIAN IF SATURATION IS 90% IN THE ABSENCE OF MORE SPECIFIC PARAMETERS FROM THE PHYSICIAN. AGENCY MAY PERFORM A RESUMPTION OF CARE VISIT FOLLOWING ANY HOSPITAL ADMISSION. RN/CRIMP SETTER/DAYCARE ASSISTANT TO MONITOR CO-MORBID CONDITIONS LISTED ON THE PLAN OF CARE AND ANY NEW CONDITIONS THAT PRESENT THEMSELVES DURING THIS EPISODE TO IDENTIFY CHANGES AND INTERVENE TO MINIMIZE COMPLICATIONS. [code = RN TO OBSERVE, ASSESS, EVALUATE, AND DEVELOP AN INDIVIDUALIZED PLAN OF CARE. AGENCY MAY ACCEPT ORDERS FROM CONSULTING PHYSICIANS KIRK RICK MD RN TO OBSERVE AND ASSESS, CRIMP SETTER/DAYCARE ASSISTANT TO OBSERVE FOR RISK FOR FALLS AND INSTRUCT IN FALL PREVENTION, HOME SAFETY, MEDICATION MANAGEMENT, INFECTION PREVENTION, AND NUTRITION MANAGEMENT. RN/CRIMP SETTER/DAYCARE ASSISTANT NURSE MAY PERFORM O2 SATURATION LEVEL ON ADMISSION, EVERY VISIT AND PRN FOR SHORTNESS OF BREATH FOR RN TO ASSESS/CRIMP SETTER TO OBSERVE PATIENT, WITH NOTIFICATION TO THE PHYSICIAN IF SATURATION IS 90% IN THE ABSENCE OF MORE SPECIFIC PARAMETERS FROM THE PHYSICIAN. AGENCY MAY PERFORM A RESUMPTION OF CARE VISIT FOLLOWING ANY HOSPITAL ADMISSION. RN/CRIMP SETTER/DAYCARE ASSISTANT TO MONITOR CO-MORBID CONDITIONS LISTED ON THE PLAN OF CARE AND ANY NEW CONDITIONS THAT PRESENT THEMSELVES DURING THIS EPISODE TO IDENTIFY CHANGES AND INTERVENE TO MINIMIZE COMPLICATIONS.] Future Scheduled Test PHYSICAL T HERAPIST TO EVALUATE AND TREAT [code = PHYSICAL THERAPIST TO EVALUATE AND TREAT ] Future Scheduled Test OCCUPATION AL THERAPIST TO EVALUATE. DECLINES OT EVALUATION [code = OCCUPATIONAL THERAPIST TO EVALUATE. DECLINES OT EVALUATION] Future Scheduled Test MEDICATION MANAGEMENT; RN/CRIMP SETTER/DAYCARE ASSISTANT TO REVIEW MEDICATIONS FOR INTERACTIONS, EFFECTIVENESS OF DRUG THERAPY, AND SIGNS/SYMPTOMS OF ADVERSE REACTIONS. MAY INSTRUCT AND REINFORCE MEDICATION TEACHING RELATED TO THE USE OF MEDICATIONS, DOSAGE, FREQUENCY, PURPOSE, SIDE EFFECTS, AND TO REPORT COMPLICATIONS. [code = MEDICATION MANAGEMENT; RN/CRIMP SETTER/DAYCARE ASSISTANT TO REVIEW MEDICATIONS FOR INTERACTIONS, EFFECTIVENESS OF DRUG THERAPY, AND SIGNS/SYMPTOMS OF ADVERSE REACTIONS. MAY INSTRUCT AND REINFORCE MEDICATION TEACHING RELATED TO THE USE OF MEDICATIONS, DOSAGE, FREQUENCY, PURPOSE, SIDE EFFECTS, AND TO REPORT COMPLICATIONS.] Future Scheduled Test ANTICOAGUL ATION MANAGEMENT; RN TO ASSESS AND TEACH, CRIMP SETTER/DAYCARE ASSISTANT TO OBSERVE/TEACH/MONITOR EFFECTIVENESS OF ANTICOAGULATION THERAPY. RN/CRIMP SETTER/DAYCARE ASSISTANT TO INSTRUCT ON SIGNS AND SYMPTOMS OF BLEEDING/ADVERSE REACTIONS TO REPORT TO PHYSICIAN. RN/CRIMP SETTER/DAYCARE ASSISTANT TO PERFORM PT/INR VIA VENIPUNCTURE OR COAGUCHECK PRN PHYSICIAN ORDERSS RN/CRIMP SETTER/DAYCARE ASSISTANT TO FAX/CALL IN RESULTS TO PHYSICIAN TIMELY [code = ANTICOAGULATION MANAGEMENT; RN TO ASSESS AND TEACH, CRIMP SETTER/DAYCARE ASSISTANT TO OBSERVE/TEACH/MONITOR EFFECTIVENESS OF ANTICOAGULATION THERAPY. RN/CRIMP SETTER/DAYCARE ASSISTANT TO INSTRUCT ON SIGNS AND SYMPTOMS OF BLEEDING/ADVERSE REACTIONS TO REPORT TO PHYSICIAN. RN/CRIMP SETTER/DAYCARE ASSISTANT TO PERFORM PT/INR VIA VENIPUNCTURE OR COAGUCHECK PRN PHYSICIAN ORDERSS RN/CRIMP SETTER/DAYCARE ASSISTANT TO FAX/CALL IN RESULTS TO PHYSICIAN TIMELY ] Future Scheduled Test FALL REDUC TION MANAGEMENT; RN TO ASSESS AND OBSERVE, CRIMP SETTER/DAYCARE ASSISTANT TO OBSERVE FALL RISK FACTORS AND EDUCATE PATIENT/CAREGIVER ON STRATEGIES TO MINIMIZE THE RISK OF FALLING. [code = FALL REDUCTION MANAGEMENT; RN TO ASSESS AND OBSERVE, CRIMP SETTER/DAYCARE ASSISTANT TO OBSERVE FALL RISK FACTORS AND EDUCATE PATIENT/CAREGIVER ON STRATEGIES TO MINIMIZE THE RISK OF FALLING.] Future Scheduled Test GENITOURIN KEZIA MANAGEMENT; RN TO ASSESS AND TEACH, CRIMP SETTER/DAYCARE ASSISTANT TO OBSERVE AND TEACH RELATED TO ALTERED GENITOURINARY STATUS TO MINIMIZE COMPLICATIONS AND REDUCE HOSPITALIZATION. [code = GENITOURINARY MANAGEMENT; RN TO ASSESS AND TEACH, CRIMP SETTER/DAYCARE ASSISTANT TO OBSERVE AND TEACH RELATED TO ALTERED GENITOURINARY STATUS TO MINIMIZE COMPLICATIONS AND REDUCE HOSPITALIZATION.] Future Scheduled Test URINARY IN CONTINENCE MANAGEMENT; RN TO ASSESS AND TEACH, CRIMP SETTER/LVNTO OBSERVE AND TEACH MANAGEMENT OF URINARY INCONTINENCE. TEACH/INSTRUCT ON PREVENTING INFECTION AND SKIN BREAKDOWN. RN/CRIMP SETTER/DAYCARE ASSISTANT MAY INSTRUCT IN BLADDER TRAINING PROGRAM INDICATED. [code = URINARY INCONTINENCE MANAGEMENT; RN TO ASSESS AND TEACH, CRIMP SETTER/LVNTO OBSERVE AND TEACH MANAGEMENT OF URINARY INCONTINENCE. TEACH/INSTRUCT ON PREVENTING INFECTION AND SKIN BREAKDOWN. RN/CRIMP SETTER/DAYCARE ASSISTANT MAY INSTRUCT IN BLADDER TRAINING PROGRAM INDICATED.] Future Scheduled Test DIABETES M ANAGEMENT; RN TO ASSESS AND TEACH, DAYCARE ASSISTANT/CRIMP SETTER TO OBSERVE AND TEACH INSTRUCTIONS OF DIABETIC CARE TO INCLUDE: DIET DIABETIC SKIN CARE, SIGNS AND SYMPTOMS OF HYPO/HYPERGLYCEMIA, PROPER ADMINISTRATION OF DIABETIC MEDICATION. RN/DAYCARE ASSISTANT/CRIMP SETTER TO INSTRUCT ON DIABETIC FOOT CARE AND MONITOR FOR SKIN LESIONS ON LOWER EXTREMITIES. BLOOD GLUCOSE TESTING DAILY RN TO ASSESS AND TEACH, DAYCARE ASSISTANT/CRIMP SETTER TO OBSERVE AND TEACH PATIENT/CAREGIVER ABILITY TO PERFORM AND RECORD BLOOD GLUCOSE TESTING ORDERED AND TO REPORT ABNORMAL FINDINGS TO PHYSICIAN. RN/DAYCARE ASSISTANT/CRIMP SETTER MAY PERFORM BLOOD GLUCOSE TEST NEEDED. RN/DAYCARE ASSISTANT/CRIMP SETTER TO REPORT TO PHYSICIAN BLOOD GLUCOSE READINGS GREATER THAN 300 OR LESS THAN 70 RN/DAYCARE ASSISTANT/CRIMP SETTER TO INSTRUCT PATIENT ON IMPORTANCE OF HGBA1C MONITORING, KIDNEY FUNCTION TEST, EYE AND FOOT EXAMS. [code = DIABETES MANAGEMENT; RN TO ASSESS AND TEACH, DAYCARE ASSISTANT/CRIMP SETTER TO OBSERVE AND TEACH INSTRUCTIONS OF DIABETIC CARE TO INCLUDE: DIET DIABETIC SKIN CARE, SIGNS AND SYMPTOMS OF HYPO/HYPERGLYCEMIA, PROPER ADMINISTRATION OF DIABETIC MEDICATION. RN/DAYCARE ASSISTANT/CRIMP SETTER TO INSTRUCT ON DIABETIC FOOT CARE AND MONITOR FOR SKIN LESIONS ON LOWER EXTREMITIES. BLOOD GLUCOSE TESTING DAILY RN TO ASSESS AND TEACH, DAYCARE ASSISTANT/CRIMP SETTER TO OBSERVE AND TEACH PATIENT/CAREGIVER ABILITY TO PERFORM AND RECORD BLOOD GLUCOSE TESTING ORDERED AND TO REPORT ABNORMAL FINDINGS TO PHYSICIAN. RN/DAYCARE ASSISTANT/CRIMP SETTER MAY PERFORM BLOOD GLUCOSE TEST NEEDED. RN/DAYCARE ASSISTANT/CRIMP SETTER TO REPORT TO PHYSICIAN BLOOD GLUCOSE READINGS GREATER THAN 300 OR LESS THAN 70 RN/DAYCARE ASSISTANT/CRIMP SETTER TO INSTRUCT PATIENT ON IMPORTANCE OF HGBA1C MONITORING, KIDNEY FUNCTION TEST, EYE AND FOOT EXAMS.] Future Scheduled Test PAIN MANAG EMENT; RN TO ASSESS AND TEACH, DAYCARE ASSISTANT/CRIMP SETTER TO OBSERVE AND TEACH AND PROVIDE EDUCATION ON PAIN MANAGEMENT TECHNIQUES. [code = PAIN MANAGEMENT; RN TO ASSESS AND TEACH, DAYCARE ASSISTANT/CRIMP SETTER TO OBSERVE AND TEACH AND PROVIDE EDUCATION ON PAIN MANAGEMENT TECHNIQUES.] Future Scheduled Test RN/CRIMP SETTER/DAYCARE ASSISTANT TO PERFORM/TEACH INCISION CARE TO SUPRAPUBIC AND PERINEUM AREA: KEEP CLEAN AND DRY. INSPECT DAILY. NO LOTIONS OR OINTMENTS TO INCISIONS. MAY SHOWER AND PAT INCISIONS DRY. LEAVE ADHESIVE INTACT. [code = RN/CRIMP SETTER/DAYCARE ASSISTANT TO PERFORM/TEACH INCISION CARE TO SUPRAPUBIC AND PERINEUM AREA: KEEP CLEAN AND DRY. INSPECT DAILY. NO LOTIONS OR OINTMENTS TO INCISIONS. MAY SHOWER AND PAT INCISIONS DRY. LEAVE ADHESIVE INTACT. ] Future Scheduled Test PRN VISITS ; NUMBER OF RN/CRIMP SETTER/DAYCARE ASSISTANT VISITS: 1 RN/CRIMP SETTER/DAYCARE ASSISTANT TO PERFORM: ASSESSMENT AND EDUCATION FOR THE FOLLOWING REASONS: INTEGUMENTARY/INCISION COMPLICATIONS [code = PRN VISITS; NUMBER OF RN/CRIMP SETTER/DAYCARE ASSISTANT VISITS: 1 RN/CRIMP SETTER/DAYCARE ASSISTANT TO PERFORM: ASSESSMENT AND EDUCATION FOR THE FOLLOWING REASONS: INTEGUMENTARY/INCISION COMPLICATIONS] Future Scheduled Test RISK FOR H OSPITALIZATION; RN TO ASSESS/TEACH, DAYCARE ASSISTANT/CRIMP SETTER TO OBSERVE/TEACH PATIENT/CAREGIVER ON RISK FOR HOSPITALIZATION/EMERGENCY ROOM VISITS, TEACH SIGNS AND SYMPTOMS THAT PUT PATIENT AT RISK, WHEN TO NOTIFY NURSE/PHYSICIAN OF COMPLICATIONS/DECLINE, AND WHEN TO CALL 911. [code = RISK FOR HOSPITALIZATION; RN TO ASSESS/TEACH, DAYCARE ASSISTANT/CRIMP SETTER TO OBSERVE/TEACH PATIENT/CAREGIVER ON RISK FOR HOSPITALIZATION/EMERGENCY ROOM VISITS, TEACH SIGNS AND SYMPTOMS THAT PUT PATIENT AT RISK, WHEN TO NOTIFY NURSE/PHYSICIAN OF COMPLICATIONS/DECLINE, AND WHEN TO CALL 911.] Future Scheduled Test CARDIOVASC ULAR SYSTEM; RN TO ASSESS/TEACH, CRIMP SETTER/DAYCARE ASSISTANT TO OBSERVE/TEACH RELATED TO ALTERED CARDIOVASCULAR STATUS TO MINIMIZE COMPLICATIONS AND REDUCE HOSPITALIZATION. [code = CARDIOVASCULAR SYSTEM; RN TO ASSESS/TEACH, CRIMP SETTER/DAYCARE ASSISTANT TO OBSERVE/TEACH RELATED TO ALTERED CARDIOVASCULAR STATUS TO MINIMIZE COMPLICATIONS AND REDUCE HOSPITALIZATION.] Future Scheduled Test HYPERTENSI ON MANAGEMENT; RN TO ASSESS AND TEACH, CRIMP SETTER/DAYCARE ASSISTANT TO OBSERVE AND TEACH WARNING SIGNS AND SYMPTOMS TO AVOID HOSPITALIZATION. [code = HYPERTENSION MANAGEMENT; RN TO ASSESS AND TEACH, CRIMP SETTER/DAYCARE ASSISTANT TO OBSERVE AND TEACH WARNING SIGNS AND SYMPTOMS TO AVOID HOSPITALIZATION.] Future Scheduled Test URINARY MO LECULAR TESTING PROTOCOL UP TO 2 PRN RN/CRIMP SETTER/DAYCARE ASSISTANT VISITS MAY BE PERFORMED FOR S/S OF UTI. RN TO ASSESS, CRIMP SETTER/DAYCARE ASSISTANT TO OBSERVE INITIATION OF UTI PROTOCOL. RN/DAYCARE ASSISTANT/CRIMP SETTER TO INSTRUCT PATIENT AND/OR CAREGIVER ON S/S OF UTI TO REPORT TO RN/DAYCARE ASSISTANT/CRIMP SETTER IF NEW OR WORSENING SYMPTOMS. DRINK PLENTY OF WATER THROUGHOUT THE DAY TO MAINTAIN HYDRATION (UNLESS CONTRAINDICATED.) URINATE WHEN THE URGE IS FELT, DO NOT WAIT. WASH GENITALS DAILY. WIPE FROM FRONT TO BACK AFTER HAVING A BOWEL MOVEMENT. RN/DAYCARE ASSISTANT/CRIMP SETTER TO OBTAIN MOLECULAR URINE TESTING BY OPTION 1 OR OPTION 2 RN/DAYCARE ASSISTANT/CRIMP SETTER TO OBTAIN U/A WITH REFLEX TO UTI PANEL (MOLECULAR) VIA CLEAN CATCH URINE AND IF UNABLE TO OBTAIN MAY PERFORM AN IN AND OUT CATH. IF PATIENT HAS INDWELLING CATHETER MAY OBTAIN FROM SAMPLING PORT. RN/DAYCARE ASSISTANT/CRIMP SETTER TO OBTAIN UTI PANEL (MOLECULAR) VIA SWAB COLLECTION METHOD FROM ADULT BRIEF/DIAPER OR PAD IF PATIENT IS INCONTINENT. NOTIFY PROVIDER OF RESULTS AND OBTAIN FURTHER ORDERS. [code = URINARY MOLECULAR TESTING PROTOCOL UP TO 2 PRN RN/CRIMP SETTER/DAYCARE ASSISTANT VISITS MAY BE PERFORMED FOR S/S OF UTI. RN TO ASSESS, CRIMP SETTER/DAYCARE ASSISTANT TO OBSERVE INITIATION OF UTI PROTOCOL. RN/DAYCARE ASSISTANT/CRIMP SETTER TO INSTRUCT PATIENT AND/OR CAREGIVER ON S/S OF UTI TO REPORT TO RN/DAYCARE ASSISTANT/CRIMP SETTER IF NEW OR WORSENING SYMPTOMS. DRINK PLENTY OF WATER THROUGHOUT THE DAY TO MAINTAIN HYDRATION (UNLESS CONTRAINDICATED.) URINATE WHEN THE URGE IS FELT, DO NOT WAIT. WASH GENITALS DAILY. WIPE FROM FRONT TO BACK AFTER HAVING A BOWEL MOVEMENT. RN/DAYCARE ASSISTANT/CRIMP SETTER TO OBTAIN MOLECULAR URINE TESTING BY OPTION 1 OR OPTION 2 RN/DAYCARE ASSISTANT/CRIMP SETTER TO OBTAIN U/A WITH REFLEX TO UTI PANEL (MOLECULAR) VIA CLEAN CATCH URINE AND IF UNABLE TO OBTAIN MAY PERFORM AN IN AND OUT CATH. IF PATIENT HAS INDWELLING CATHETER MAY OBTAIN FROM SAMPLING PORT. RN/DAYCARE ASSISTANT/CRIMP SETTER TO OBTAIN UTI PANEL (MOLECULAR) VIA SWAB COLLECTION METHOD FROM ADULT BRIEF/DIAPER OR PAD IF PATIENT IS INCONTINENT. NOTIFY PROVIDER OF RESULTS AND OBTAIN FURTHER ORDERS.] Goal Patient Goal - G ET BETTER FROM THIS SURGERY. Goal Provider Goal - A PLAN OF CARE WILL BE ESTABLISHED THAT MEETS THE PATIENTS NEEDS. PATIENT WILL DEMONSTRATE OXYGEN SATURATION WITHIN NORMAL LIMITS OR PATIENTS OPTIMAL LEVEL ESTABLISHED BY THE PHYSICIAN THROUGHOUT CARE. CHANGES TO CO-MORBID CONDITIONS AND ANY NEW CONDITIONS WILL BE IDENTIFIED AND REPORTED TO THE PHYSICIAN. Goal Provider Goal - PATIENT WILL BENEFIT FROM PT SERVICES BY ..25 Goal Provider Goal - PATIENT WILL BENEFIT FROM OT SERVICES BY 01.12.25 Goal Provider Goal - PATIENT/CAREGIVER TO VERBALIZE, AND CONSISTENTLY DEMONSTRATE EFFECTIVE, SAFE MANAGEMENT OF MEDICATION INCLUDING KNOWLEDGE OF EFFECTIVENESS, POTENTIAL SIDE EFFECTS AND DRUG REACTIONS AND WHEN TO CONTACT THE APPROPRIATE CARE PROVIDER. PATIENT/CAREGIVER WILL BE ABLE TO VERBALIZE UNDERSTANDING OF MEDICATION REGIMEN AND ACCURATELY TAKE MEDICATIONS PRESCRIBED WITHOUT ADVERSE EFFECTS BY 01/12/25 Goal Provider Goal - INEFFECTIVE ANTICOAGULATION THERAPY WILL BE IDENTIFIED AND PROMPTLY REPORTED TO THE PHYSICIAN. PATIENT / CAREGIVER WILL VERBALIZE UNDERSTANDING OF MEASURES TO MAINTAIN EFFECTIVE ANTICOAGULATION THERAPY BY 01/12/25 Goal Provider Goal - PATIENT/CAREGIVER WILL VERBALIZE/DEMONSTRATE UNDERSTANDING OF FALL RISK FACTORS AND IMPLEMENT STRATEGIES TO MINIMIZE FALL RISK. PATIENT/CAREGIVER WILL VERBALIZE/DEMONSTRATE AN ABILITY TO ADHERE TO FALL REDUCTION SELF-MANAGEMENT AND LIFE-STYLE CHANGES BY 01/12/25 Goal Provider Goal - PATIENT / CAREGIVER WILL VERBALIZE/DEMONSTRATE UNDERSTANDING OF MEASURES TO MANAGE ALTERED GENITOURINARY STATUS BY END OF EPISODE. Goal Provider Goal - PATIENT/CAREGIVER WILL VERBALIZE/DEMONSTRATE UNDERSTANDING OF CARE AND MANAGEMENT OF URINARY INCONTINENCE BY 01/12/25 Goal Provider Goal - PATIENT / CAREGIVER WILL VERBALIZE / DEMONSTRATE AN ABILITY TO ADHERE TO SELF-MANAGEMENT OF DIABETES MANAGEMENT BY 01/12/25 Goal Provider Goal - PATIENT / CAREGIVER WILL VERBALIZE / DEMONSTRATE UNDERSTANDING OF PAIN CONTROL MEASURES BY 01/12/25 Goal Provider Goal - PATIENT / CAREGIVER WILL VERBALIZE / DEMONSTRATE ABILITY TO PERFORM WOUND CARE. WOUND STATUS WILL IMPROVE EVIDENCED BY A DECREASE IN SIZE, DRAINAGE, ABSENCE OF INFECTION, AND DECREASED PAIN BY 01/12/25 Goal Provider Goal - PATIENT WILL UTILIZE PRN VISITS TO PREVENT HOSPITALIZATION BY 5.25 Goal Provider Goal - PATIENT/CAREGIVER WILL VERBALIZE UNDERSTANDING OF SIGNS AND SYMPTOMS THAT PUT THE PATIENT AT RISK FOR HOSPITALIZATION /EMERGENCY ROOM VISITS, WHEN TO NOTIFY NURSE/PHYSICIAN OF COMPLICATIONS/DECLINE AND WHEN TO CALL 911. Goal Provider Goal - PATIENT / CAREGIVER WILL VERBALIZE/DEMONSTRATE UNDERSTANDING OF MEASURES TO MANAGE ALTERED CARDIOVASCULAR STATUS BY 01/12/25 Goal Provider Goal - PATIENT / CAREGIVER WILL VERBALIZE/DEMONSTRATE AN ABILITY TO ADHERE TO SELF-MANAGEMENT OF HTN TO MINIMIZE COMPLICATIONS AND AVOID HOSPITALIZATION BY 5..25 Goal Provider Goal - PATIENT WILL DEMONSTRATE IMPROVEMENT IN S/S OF UTI TO AVOID HOSPITALIZATION. Encounters Start Date/Time End Date/Time Encounter Type Admission Type Attending South [facility] Care Department Encounter ID Discharge Date Discharge Status Discharge Condition Discharge Reason Percent Goals Met 2024-11-14 00:00:00 2025-01-12 00:00:00 Outpatient NEW ADMISSION [facility] [id number] 76.00
--- OUTSIDE RECORDS SUMMARY | 2024-12-17 16:42 | XMS_ITS | Encounter Summary ---
Author Organization [facility] Address [address] [place] [address] Phone Care Team Providers Care Aircraft Air Conditioning Mechanic Name Role Phone Fuentes Orellana MD Primary Care Provider [phone] Itz Iyer MD Unavailable [phone] Lupillo Davenport MD Unavailable [phone] Lupillo Davenport MD Unavailable [phone] Shawnee Mckinney MD Unavailable [phone] Chciho Clayton MD Unavailable Newton Weeks MD Unavailable [phone] Maria Guadalupe Palacios RN Unavailable Unava ilable Lupillo Davenport MD Unavailable [phone] Itz Iyer MD Unavailable [phone] Itz Iyer MD Unavailable [phone] Itz Iyer MD Unavailable [phone] Itz Iyer MD Unavailable [phone] Itz Iyer MD Unavailable [phone] Itz Iyer MD Unavailable [phone] Danis Meza INFECTION CONTROL NURSE Unavailable Antonette Owens INFECTION CONTROL NURSE Unavailable Aniceto Foley MD Unavailable [phone] Encounter Details Date Type Department Care [...] on file 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 Gender Identity Not on file Sexual Orientation [...] on filedocumented in this encounter Care Teams Aircraft Air Conditioning Mechanic Relationship Specialty Start Date End Date Fuentes Orellana MD PCP - General 11/28/16 Itz Iyer MD [address] [facility] [address] [place] [address] Consulting Physician Urology 05/31/18 Lupillo Davenport MD [address] [place] [address] Referring Physician Radiation Oncology 05/31/18 Lupillo Davenport MD [address] [place] [address] Referring Physician Radiation Oncology 05/31/18 Shawnee Mckinney MD [address] [facility] [address] [place] [address] Referring Physician Urology 06/03/18 Chicho Clayton MD [address] [facility] [address] [place] [address] Medical Oncologist/Hematologis t Medical Oncology 06/07/18 Newton Weeks MD [address] [facility] [address] [place] [address] Referring Physician Radiation Oncology 06/07/18 Maria Guadalupe Palacios, RN Registered Nurse 06/10/18 Lupillo Davenport MD [address] [place] [address] [place] [address] Referring Physician Radiation Oncology 06/16/18 Itz Iyer MD [address] [place] [address] Consulting Physician Urology 06/17/18 06/17/18 Itz Iyer MD [address] [address] Consulting Physician Urology 06/18/18 06/18/18 Itz Iyer MD [address] [address] Consulting Physician Urology 06/18/18 06/18/18 Itz Iyer MD [address] [place] [address] Consulting Physician Urology 06/22/18 06/22/18 Itz Iyer MD [address] [place] [address] Consulting Physician Urology 07/01/18 07/01/18 Itz Iyer MD [address] [place] [address] Consulting Physician Urology 07/06/18 07/06/18 Danis Meza NP [address] [place] [address] Nurse Practitioner Urology 10/06/22 Antonette Owens NP [address] [place] [address] Nurse Practitioner Cardiovascular Disease 10/06/22 Aniceto Foley MD [address] [place] [address] Surgeon Vascular Surgery 10/31/22 documented as of this encounter
--- OUTSIDE RECORDS SUMMARY | 2024-12-17 16:42 | XMS_ITS | Encounter Summary ---
Author Organization [facility] Address [address] [place] [address] Phone Care Team Providers Care Outreach Liaison Name Role Phone Fuentes Orellana MD Primary Care Provider Brent Dickinson DO Unavailable [phone] Faviola Jiménez COST REPORT CLERK, WAREHOUSE ORDER FILLER Unavailable Shawnee Mckinney MD Unavailable Chicho Clayton MD Unavailable Lai Lambert COST REPORT CLERK, WAREHOUSE ORDER FILLER Unavailable Kami Meneses MD Unavailable [phone] Anette Bond MD Unavailable [phone] Kay Gordon COST REPORT CLERK, WAREHOUSE ORDER FILLER Unavailable Kami Meneses MD Unavailable [phone] Encounter Details Date Type Department Care Team (Late st Contact Info) Description 12/16/2024 Telephone [facility] [address] [place] [address] Kami Meneses MD [address] [address] Social History Tobacco Use Types Packs/Day Years [...] 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 Chicho Clayton at [place] for prostate. * Telephone Encounter - Kami Meneses MD - 12/16/2024 11:45 AM CDT Can you ask the patient who follows him for his prostate cancer? documented in this encounter Plan of Treatment Upcoming Encounters Date Type Department Care Team (Late st Contact Info) Description 01/27/2025 9:45 AM CDT Office Visit [facility] [address] [place] [address] Kami Meneses MD [address] [address] documented as of this encounter Visit Diagnoses Not on filedocumented in this encounter Care Teams Outreach Liaison Relationship Specialty Start Date End Date Fuentes Orellana MD [address] [place] [address] PCP - General Family Medicine 07/06/15 Brent Dickinson DO [address] [facility] [address] Gastroenterology 06/27/16 Faviola Jiménez APRN, WAREHOUSE ORDER FILLER [address] [facility] [address] Nurse Practitioner Advanced Practice Nurse 07/22/16 Shawnee Mckinney MD [address] [facility] [address] [place] [address] Urologist Urology 06/07/19 Chicho Clayton MD [address] [facility] [address] [place] [address] Oncology 06/13/19 Lai Lambert APRN, WAREHOUSE ORDER FILLER [address] [place] [address] Nurse Practitioner Advanced Practice Nurse 02/10/23 Kami Meneses MD #[address] [address] Consulting Physician Urology 06/16/23 Anette Bond MD [address] [place] [address] Consulting Physician Gastroenterology 12/25/22 Kay Gordon APRN, WAREHOUSE ORDER FILLER [address] [place] [address] Nurse Practitioner Advanced Practice Nurse 06/16/24 Kami Meneses MD #[address] [address] Consulting Physician Urology 08/19/24 documented as of this encounter
--- OUTSIDE RECORDS SUMMARY | 2024-12-17 16:42 | XMS_ITS | Encounter Summary ---
Author Organization [facility] Address [address] [place] [address] Phone Care Team Providers Care Healthcare Associate Name Role Phone Fuentes Orellana MD Primary Care Provider [phone] Itz Iyer MD Unavailable [phone] Shawnee Mckinney MD Unavailable [phone] Chicho Clayton MD Unavailable Maria Guadalupe Palacios RN Unavailable Unava ilable Lupillo Davenport MD Unavailable [phone] Danis Meza BOND BROKER Unavailable Antonette Owens NP Unavailable Aniceto Foley MD Unavailable [phone] Encounter Details Date Type Department Care [...] on file 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 Gender Identity Not on file Sexual Orientation [...] on filedocumented in this encounter Care Teams Healthcare Associate Relationship Specialty Start Date End Date Fuentes Orellana MD PCP - General 11/28/16 Itz Iyer MD [address] [place] [address] Consulting Physician Urology 05/31/18 Shawnee Mckinney MD [address] [facility] [address] [place] [address] Referring Physician Urology 06/03/18 Chicho Clayton MD [address] [place] [address] Medical Oncologist/Hematologis t Medical Oncology 06/07/18 Maria Guadalupe Palacios, RN Registered Nurse 06/10/18 Lupillo Davenport MD Referring Physician Radiation Oncology 06/16/18 Danis Meza NP [address] [place] [address] Nurse Practitioner Urology 10/06/22 Antonette Owens NP [address] [place] [address] Nurse Practitioner Cardiovascular Disease 10/06/22 Aniceto Foley MD [address] [place] [address] Surgeon Vascular Surgery 10/31/22 documented as of this encounter
--- OUTSIDE RECORDS SUMMARY | 2024-12-17 16:42 | XMS_ITS | Encounter Summary ---
Author Organization [facility] Address [address] [facility] [place] [address] Phone Care Team Providers Care Speeder Machine Operator Name Role Phone Fuentes Orellana MD Primary Care Provider Brent Dickinson DO Unavailable [phone] Faviola Jiménez COUNSELOR/ART THERAPIST, SAMPLER RADIOACTIVE WASTE Unavailable Shawnee Mckinney MD Unavailable Chicho Clayton MD Unavailable Lai Lambert COUNSELOR/ART THERAPIST, SAMPLER RADIOACTIVE WASTE Unavailable Kami Meneses MD Unavailable [phone] Anette Bond MD Unavailable [phone] Kay Gordon APRN, SAMPLER RADIOACTIVE WASTE Unavailable Kami Meneses MD Unavailable [phone] Reason for Visit * Reason Comments Medication Refill Encounter Details Date Type Department Care Team (Late st Contact Info) Description 10/15/2021 Refill [facility] [place] [address] [place] [id number] Ingrid Mccloud Ashley, PAC [address] [place] [address] Medication Refill Social History Tobacco Use Types [...] Job 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 E SHOW JUDGE documented in this encounter Plan of Treatment Upcoming Encounters Date Type Department Care Team (Late st Contact Info) Description 01/27/2025 9:45 AM CDT Office Visit [facility] [address] [place] [address] Kami Meneses MD #[address] [address] documented as of this encounter Visit Diagnoses Not on filedocumented in this encounter Care Teams Speeder Machine Operator Relationship Specialty Start Date End Date Fuentes Orellana MD [address] [address] PCP - General Family Medicine 07/06/15 Brent Dickinson DO [address] [address] Gastroenterology 06/27/16 Faviola Jiménez APRN, SAMPLER RADIOACTIVE WASTE [address] [place] [address] Nurse Practitioner Advanced Practice Nurse 07/22/16 Shawnee Mckinney MD [address] [facility] [address] [place] [address] Urologist Urology 06/07/19 Chicho Clayton MD [address] [facility] [address] [place] [address] Oncology 06/13/19 Lai Lambert APRN, SAMPLER RADIOACTIVE WASTE [address] [place] [address] Nurse Practitioner Advanced Practice Nurse 02/10/23 Kami Meneses MD #[address] [address] Consulting Physician Urology 06/16/23 Anette Bond MD [address] [place] [address] Consulting Physician Gastroenterology 12/25/22 Kay Gordon APRN, SAMPLER RADIOACTIVE WASTE [address] [place] [address] Nurse Practitioner Advanced Practice Nurse 06/16/24 Kami Meneses MD #[address] [address] Consulting Physician Urology 08/19/24 documented as of this encounter
--- OUTSIDE RECORDS SUMMARY | 2024-12-17 16:42 | XMS_ITS | Referral Summary ---
Author Organization [facility] [address] [facility] [address] Address [address] [place] [address] Care Team Providers Care Loader [facility] Name Role Phone Fuentes Orellana MD Primary Care Provider Itz Iyer MD Unavailable [phone] Shawnee Mckinney MD Unavailable [phone] Chicho Clayton MD Unavailable Maria Guadalupe Palacios RN Unavailable Unava ilable Lupillo Davenport MD Unavailable [phone] Danis Meza PRODUCT SUPPORT MANAGER Unavailable Antonette Owens NP Unavailable Aniceto Foley MD Unavailable [phone] Encounters Date Type Department Care Team Description 12/09/2024 1:00 PM CDT Office Visit [facility] Medical [facility] Cardiology [address] [place] [address] Kay Ward NP Coronary artery disease of [place] artery of [place] heart with stable angina pectoris (Primary Dx); Orthostatic hypotension; LVH (left ventricular hypertrophy); PVD (peripheral vascular disease); Preoperative cardiovascular examination 11/09/2024 5:14 AM CDT - 11/12/2024 2:30 PM CDT Hospital Encounter [id number] [place] [address] Kami Meneses MD Intrinsic urethral sphincter deficiency (Primary Dx) Discharge Disposition: Discharge to home, home health skilled care 11/10/2024 Telephone [facility] Home Care Services [address] [facility] [address] [place] [address] Katty Bundyee 11/09/2024 7:30 AM CDT - 11/09/2024 10:00 AM CDT Surgery [facility] Operating Room [address] [place] [phone] Kami Meneses MD Cystoscopy 11/09/2024 7:30 AM CDT Anesthesia Event [facility] Operating Room [address] [place] [phone] Lai Gregg DO [place], Justin Kyle, CRNA 10/26/2024 12:45 PM ROOFING LABORER Pre-Admission Testing [facility] Pre Anesthesia Testing [address] [place] [phone] Stress incontinence 10/20/2024 10:30 AM ROOFING LABORER Office Visit [facility] Medical [facility] Cardiology [address] [place] [facility] [address] [place] [phone] Kay Ward NP Coronary artery disease of [place] artery of [place] heart with stable angina pectoris (Primary Dx); Preoperative cardiovascular examination; Orthostatic hypotension; LVH (left ventricular hypertrophy); PVD (peripheral vascular disease) 10/13/2024 Telephone [facility] Cardiology [address] [place] [address] [address] [place] [phone] Mariangel Palmer MD cardiac clearance 09/27/2024 11:00 AM ROOFING LABORER Lab [facility] - Lab Collection [address] [facility] Floor 6 [place] [address] Prostate cancer (HCC) 09/27/2024 11:45 AM ROOFING LABORER Office Visit [facility] [address] [facility] Floor 5 [place] [address] Chicho Clayton MD Prostate cancer (HCC) (Primary Dx) 09/27/2024 10:45 AM ROOFING LABORER Lab [facility] [address] [facility] Floor 6 [place] [address] Prostate cancer (HCC) from Last 3 Months Allergies No known active allergies Medications ACCU-CHEK [...] immediate release tabletIndicatio ns:Coronary artery disease involving [place] coronary artery of [place] heart without angina pectoris Take 1 tablet [...] (10/21/2022): Added automatically from request for surgery [id number] Assessment & Plan (10/30/2022 2:56 PM ROOFING LABORER): - OR 3/2 for planned R CEA - OU status, Q2h NV/VS monitoring - Bedrest today, OOB/PT POD #1 - SBP goal 100-160, nicardipine for elevated BP - Continue aspirin and statin - Plan to stager home medications and resume overnight Atherosclerosis of [place] ar teries of extremities with intermittent claudication, bilateral legs 06/03/2022 Melanoma 01/10/2021 Anxiety 01/10/2021 DM (diabetes mellitus) 01/10/2021 Assessment & Plan (10/30/2022 9:59 AM ROOFING LABORER): - A1c 7.6% 10/2022 - SSI while inpatient - CC diet when eating Elevated left ventricular end-diastolic pressure (LVEDP) 11/15/2019 Encounter for surgical after care following surgery of circulatory system 05/20/2019 Prostate cancer 09/10/2018 Assessment & Plan (10/27/2018 9:53 AM ROOFING LABORER): Follows with urology, has his PSA monitored it is increasing, but still WNL 1.4 Assessment & Plan (09/22/2018 11:35 AM ROOFING LABORER): Has close follow up with his oncologist. His PSA was slightly elevated on last check. Hyperlipidemia 09/21/2017 Assessment & Plan (06/30/2018 9:38 AM CDT): His last lipid panel was within acceptable range; he will continue on a high intensity statin. Assessment & Plan (09/21/2017 11:34 AM ROOFING LABORER): Continue Lipitor 40 mg daily. Essential hypertension 07/20/2017 Assessment & Plan (10/30/2022 2:57 PM ROOFING LABORER): - Tight BP goals post-procedure - Continue home medications as indicated by BP goals as above, staggering overnight for gentle BP control Assessment & Plan (10/27/2018 9:54 AM ROOFING LABORER): Hypertension is unchanged. Dietary sodium restriction. Blood pressure will be reassessed in 4 weeks. Assessment & Plan (09/22/2018 11:38 AM ROOFING LABORER): Hypertension remains elevated. He is increasing his [...] today Assessment & Plan (09/21/2017 11:33 AM ROOFING LABORER): Blood pressure is well controlled today. Last visit we added HCTZ 12.5 mg daily. Continue current medications Assessment & Plan (08/10/2017 11:26 AM ROOFING LABORER): Blood pressure is not controlled. Add hydrochlorothiazide 12.5 mg p.o. daily. He is compliant with medications but always add salt to food which I advised him not to do that. Assessment & Plan (07/20/2017 9:19 AM ROOFING LABORER): Blood pressure remains uncontrolled. We will order renal Doppler ultrasound to rule out renal artery stenosis given the fact that he has peripheral vascular disease and coronary artery disease. I will increase amlodipine from 5-10 mg p.o. daily. If that does not control the blood pressure we will add hydrochlorothiazide 12.5 mg p.o. Daily. Coronary artery disease invo lving [place] coronary artery of [place] heart without angina pectoris 07/20/2017 Assessment & Plan (10/30/2022 9:58 AM ROOFING LABORER): - Continue home medications as able - Maintained on Brilinta as an outpatient; held 1 week prior to OR - Will discuss with surgery team when to safely resume post-procedure Assessment & Plan (10/27/2018 9:59 AM ROOFING LABORER): Coronary artery disease is improving with lifestyle modifications. Continue current treatment regimen. Cardiac status will be reassessed in 3 months. No chest pain. Minimal SOB. Continue asa, statin, brilinta Assessment & Plan (09/22/2018 11:36 AM ROOFING LABORER): Coronary artery disease is unchanged. Regular aerobic [...] BB. Assessment & Plan (09/21/2017 11:33 AM ROOFING LABORER): Continue aspirin, Brilinta, Toprol XL and atorvastatin. Assessment & Plan (08/10/2017 11:27 AM ROOFING LABORER): Continue Brilinta and aspirin. Asymptomatic. Assessment & Plan (07/20/2017 9:19 AM ROOFING LABORER): Continue aspirin, Brilinta, Lipitor , metoprolol PVD (peripheral vascular disease) 07/20/2017 Assessment & Plan (10/27/2018 9:21 AM ROOFING LABORER): S/P bilateral ALVA angioplasty; right EIA angioplasty/stent 11/21/14. S/P aortoiliac angioplasty/stent 05/28/09. Continues on asa, statin and brilinta Assessment & Plan (09/21/2017 11:34 AM ROOFING LABORER): He follows up with vascular surgery at [facility] Assessment & Plan (08/10/2017 11:27 AM ROOFING LABORER): Renal ultrasound suggest more than 60% stenosis in the right renal artery and infrarenal stenosis 50-70%. He follows up with Dr. Foley from vascular surgery at [facility] Assessment & Plan (07/20/2017 9:20 AM ROOFING LABORER): Patient will follow up with Dr. Foley from vascular surgery. He does have some claudication when he walks. Intrinsic urethral sphincter deficiency 06/08/20 15 Resolved Problems Problem Noted Date Diagnosed Date Resolved Date Dizzinesses 10/27/2018 02/09/2019 Assessment & Plan (10/27/2018 10:17 AM ROOFING LABORER): Persistent dizziness. Has stopped caffeine intake. Has [...] implant or graft 6 02/09/2019 Atherosclerosis of [place] artery of extremity 04/15/20 16 02/09/2019 Assessment & Plan (09/22/2018 11:26 AM ROOFING LABORER): 80% circumflex s/p RICHARD. Moderate 30 % LAD with bridging Impotence of organic origin 09/18/2015 02/09/2019 Urinary tract infection 01/18/201501/29 Incontinence 01/18/2015 02/09/2019 Stricture, urethra 07/31/2011 9 Overview (12/10/2017): Description: Dilation 06/09/11 Nocturia 11/28/2010 02/09/2019 Hypertension 05/16/2009 02/09/2019 Assessment & Plan (10/27/2018 10:11 AM ROOFING LABORER): Hypertension is {improving/stable/worsenin}. {plan; hypertension for POC:[id number]} Blood pressure will be reassessed {plan; follow-up 2 weeks/4weeks/3months:[id number]}. Increase amolodipine to 10 mg Continue all [...] from Vascular Surgery. Hypercholesterolemia 05/16/2009 019 Immunizations Immunization Administration Dates Next Due Adenovirus [...] drink = 0.6 oz pu re alcohol) [facility] Utilities Answer Date Recorded In the past [...] often do you attend chur ch or scientologist services? More than 4 times per year 11/11/2024 Do you belong to any clubs o r organizations such as gnosticist groups, unions, fraternal or athletic groups, or [...] any time in the past 12 m [facility], were you homeless or living in a jail (including now)? No 11/11/2024 Personal Safety Answer Date Recorded Have you ever been in or are you currently in a harmful physical or emotional relationship or is someone making you feel afraid or unsafe? Denies 11/09/2024 Sex and Gender Information Value Date Recorded Sex Assigned at Not on file Legal Sex Male 12:32 AM ROOFING LABORER Gender Identity Not on file Sexual Orientation [...] 12/09/2024 1:02 PM CDT Plan of Treatment Not on file Medical Devices Implanted Type [employer] Device Identifier Shelf Expiration Date Model / Serial / Lot Other - See Comments-2014 Implanted:05/01 (Quantity not on file) Other - see comments Bladder Description:Bladder control Stent Stent Bilateral : Groin Description:Per pt 4-5 stent s Stent Stent N/A: Heart Stent Right: Eye Artificail Urinary Sphincter-2014 Implanted:0 03/2015 by Shawnee Mckinney MD (Quantity not on file) N/A: Urethra Description:05/08/2019 Placeme nt of artificial urinary sphincter with a 3.5 cm cuff and 61 to 70 cm pressure-regulating balloon. [employer] Vascu-Guard 8x.8cm Peripheral Patch Vascular Bovine Pericardium [id number] - [id number] Implanted:Qty: 1 on 10/30/2022 by Aniceto Foley MD at [facility] Right: Carotid [employer] Sandra [id number] 07/09/2023 [id number] / / [id number] [employer] Sandra Ams 800 Kit Accessory Sterile Disposable Latex Free Urinary [id number] - [id number] Implanted:Qty: 1 on 11/09/2024 by Kami Meneses MD at [facility] N/A: Urethra [employer] Sandra [id number] 03/09/2029 [id number] / / [id number] [employer] Sandra Cuff Urethral Ams 800 Inhibizone 3.5cm [id number] - [id number] Implanted:Qty: 1 on 11/09/2024 by Kami Meneses MD at [facility] N/A: Urethra [employer] Sandra [id number] 02/22/2026 [id number] / / [id number] [employer] Sandra Ams 800 Pressure Balloon Sphincter 61-70cu Cm Implant Urological [id number] - [id number] Implanted:Qty: 1 on 11/09/2024 by Kami Meneses MD at [facility] N/A: Abdomen [employer] Sandra [id number] 03/20/2029 [id number] / / [id number] [employer] Sandra Ams 800 Control Pump Sphincter Implant Urological Inhibizone [id number] - [id number] Implanted:Qty: 1 on 11/09/2024 by Kami Meneses MD at [facility] N/A: Scrotum [employer] Sandra [id number] 02/15/2026 [id number] / / [id number] Procedures Procedure Name Priority Date/Time Associated Diagnosis [...] DEVICE Routine 11/09/2024 9 :20 AM CDT IL AN PROCEDURE PLACEHOLDER Routine 11/09/2024 7:54 AM CDT IL AN ELECTIVE ENDOTRACHEAL AIRWAY Routine 11/09/2024 7:54 AM CDT ARTIFICIAL URINARY SPHINCTER 11/09/2024 7:32 AM CDT Stress incontinence CYSTOSCOPY 11/09/2024 7:32 AM CDT Stress incontinence POCT GLUCOSE DEVICE Routine 11/09/2024 6 :43 AM CDT URINALYSIS, MICROSCOPIC ONLY Routine 10/26/2024 1:43 PM ROOFING LABORER Stress incontinence URINALYSIS AND REFLEX TO MICROSCOPIC AND CULTURE Routine 10/26/2024 1:43 PM ROOFING LABORER Stress incontinence EGFR Routine 09/27/2024 10:40 AM ROOFING LABORER Prostate cancer (HCC) DIFFERENTIAL AUTO Routine 09/27/2024 10: 40 AM ROOFING LABORER Prostate cancer (HCC) CBC WITH AUTO DIFFERENTIAL Routine 09/27/2024 10:40 AM ROOFING LABORER Prostate cancer (HCC) COMPREHENSIVE METABOLIC PANEL Routine 09/27/2024 10:40 AM ROOFING LABORER Prostate cancer (HCC) LACTATE DEHYDROGENASE Routine 09/27/2024 10:40 AM ROOFING LABORER Prostate cancer (HCC) PSA DIAGNOSTIC Routine 09/27/2024 10:40 AM ROOFING LABORER Prostate cancer (HCC) LIPID PANEL Routine 03/22/2024 10:23 AM CDT Coronary artery disease involving [place] coronary artery of [place] heart without angina pectoris CTA ABDOMINAL AORTA AND BILATERAL ILIOFEMORAL RUNOFF Schedule Routine, Read Routine (OP Routine) 12/15/2023 1:56 PM CDT PVD (peripheral vascular disease) HEMOGLOBIN A1C Routine 09/22/2023 12:19 PM ROOFING LABORER Prostate cancer (HCC) from Last 3 Months or Most Recently Relevant to Health Maintenance Results * POCT glucose (11/12/2024 11:38 AM CDT) Glucose, POC 151 70 - 199 mg/dL Comment: For Glucose values <35 mg/dl when Hematocrit is >60 mg/dl,the test may not accurately detect significant hypoglycemia,and testing in the Laboratory should be considered if clinically indicated. Blood 11/12/2024 11:3 8 AM CDT 11/12/2024 11:38 AM CDT us Kami Gleason MD LAB POCT ORDERABLES - DEVICE F inal Result [facility] [address] [place] [address] * (ABNORMAL) eGFR (11/12/2024 8:15 AM CDT) eGFR 59(L) >=60 mL/min/1. 73 m2 Comment: [...] CDT 11/12/2024 9:17 AM CDT us Kalina Coronado NP LAB BLOOD ORDERABLES Fi nal Result [facility] [address] Department [place] [address] * (ABNORMAL) Basic metabolic panel (11/12/2024 8:15 AM CDT) Sodium 138 135 - 145 mmol/L Potassium, pl 4.2 3.3 - 4.9 mmol/L [facility] Chloride 106 97 - 110 mmol/L [facility] CO2 21(L) 22 - 32 mmol/L [facility] Anion gap 11 2 - 15 mmol/L [facility] BUN 28(H) 6 - 25 mg/dL [facility] Creatinine 1.26 0.80 - 1.30 mg/dL [facility] Glucose 136 70 - 199 mg/dL [facility] Comment: Interpretive Data Fasting glucose >/= [...] 2022. Calcium 9.2 8.5 - 10.3 mg/dL [facility] Blood 11/12/2024 8:15 AM CDT 11/12/2024 9:17 AM CDT Kalinacedric Ramirez Cliff DANIEL LAB BLOOD ORDERABLES Fi nal Result Performing Organization Address [facility]/ZIP Co de Phone Number [facility] [address] [facility] [place] [address] * POCT glucose (11/12/2024 5:49 AM CDT) Glucose, POC 125 70 - 199 mg/dL Comment: For Glucose values <35 mg/dl when Hematocrit is >60 mg/dl,the test may not accurately detect significant hypoglycemia,and testing in the Laboratory should be considered if clinically indicated. Blood 11/12/2024 5:49 AM CDT 11/12/2024 5:49 AM CDT Kami Gleason MD LAB POCT ORDERABLES - DEVICE F inal Result Performing Organization Address [facility] Co de Phone Number [facility] [address] [facility] [place] [address] * (ABNORMAL) POCT glucose (11/11/2024 8:22 PM CDT) Glucose, POC 214(H) 70 - 199 mg/dL Comment: For Glucose values <35 mg/dl when Hematocrit is >60 mg/dl,the test may not accurately detect significant hypoglycemia,and testing in the Laboratory should be considered if clinically indicated. Blood 11/11/2024 8:22 PM CDT 11/11/2024 8:22 PM CDT Kami Gleason MD LAB POCT ORDERABLES - DEVICE F inal Result Performing Organization Address [facility]/ZIP Co de Phone Number [facility] [address] Department [place] [address] * POCT glucose (11/11/2024 5:14 PM CDT) Glucose, POC 127 70 - 199 mg/dL Comment: For Glucose values <35 mg/dl when Hematocrit is >60 mg/dl,the test may not accurately detect significant hypoglycemia,and testing in the Laboratory should be considered if clinically indicated. Blood 11/11/2024 5:14 PM CDT 11/11/2024 5:14 PM CDT [facility] LAB POCT ORDERABLES - DEVICE F inal Result Performing Organization Address [facility] Co de Phone Number [facility] [address] [facility] [place] [place] [address] * POCT glucose (11/11/2024 11:29 AM CDT) Glucose, POC 144 70 - 199 mg/dL Comment: For Glucose values <35 mg/dl when Hematocrit is >60 mg/dl,the test may not accurately detect significant hypoglycemia,and testing in the Laboratory should be considered if clinically indicated. Blood 11/11/2024 11:2 9 AM CDT 11/11/2024 11:29 AM CDT [facility] MD LAB POCT ORDERABLES - DEVICE F inal Result Performing Organization Address [facility] Co de Phone Number [facility] [address] Department [place] [address] * (ABNORMAL) eGFR (11/11/2024 7:48 AM CDT) eGFR 48(L) >=60 mL/min/1. 73 m2 Comment: [...] MD LAB BLOOD ORDERABLES Final Res ult [facility] [address] Department [place] [address] * Differential, auto (11/11/2024 7:48 AM CDT) Neutrophil abs 5.4 1.5 - 6.5 K/cumm Imm gran abs 0.0 0.0 - 0.1 K/cumm [facility] Lymphocyte abs 1.8 0.8 - 3.3 K/cumm [facility] Monocyte abs 0.8 0.2 - 0.8 K/cumm [facility] Eosinophil abs 0.2 0.0 - 0.5 K/cumm [facility] Basophil abs 0.0 0.0 - 0.1 K/cumm [facility] Neutrophil pct 65.8 % [facility] Comment: Interpretive Data Percent cell count reference ranges are not reported, since discordance with absolute values may lead to misinterpretation of CBC data. Current Interpretive Data was last revised on 2017. Imm gran pct 0.5 % [facility] Comment: Interpretive Data Percent cell count reference ranges are not reported, since discordance with absolute values may lead to misinterpretation of CBC data. Current Interpretive Data was last revised on 2017. Lymphocyte pct 21.7 % [facility] Comment: Interpretive Data Percent cell count reference ranges are not reported, since discordance with absolute values may lead to misinterpretation of CBC data. Current Interpretive Data was last revised on 2017. Monocyte pct 10.0 % [facility] Comment: Interpretive Data Percent cell count reference ranges are not reported, since discordance with absolute values may lead to misinterpretation of CBC data. Current Interpretive Data was last revised on 2017. Eosinophil pct 1.8 % [facility] Comment: Interpretive Data Percent cell count reference ranges are not reported, since discordance with absolute values may lead to misinterpretation of CBC data. Current Interpretive Data was last revised on 2017. Basophil pct 0.2 % [facility] Comment: Interpretive Data Percent cell count reference ranges are not reported, since discordance with absolute values may lead to misinterpretation of CBC data. Current Interpretive Data was last revised on 2017. Blood 11/11/2024 7:48 AM CDT 11/11/2024 8:16 AM CDT Kalina Coronado NP LAB BLOOD ORDERABLES Fi nal Result [facility] [address] Department [place] [address] * (ABNORMAL) CBC with auto differential (11/11/2024 7:48 AM CDT) WBC 8.2 3.8 - 9.9 K/cumm Hgb 11.1(L) 13.0 - 17.5 g/dL [facility] Hct 34.8(L) 38.9 - 50.3 % [facility] Plt 175 150 - 400 K/cumm [facility] MPV 11.0 9.1 - 12.3 fL [facility] RBC 3.63(L) 4.30 - 5.80 M/cumm [facility] MCV 95.9 81.3 - 96.4 fL [facility] MCH 30.6 27.1 - 33.3 pg [facility] MCHC 31.9(L) 32.3 - 35.7 g/dL [facility] RDW CV 14.2 11.1 - 14.9 % [facility] RDW SD 50.2(H) 35.7 - 48.1 fL [facility] NRBC abs 0.00 0.00 - 0.01 K/cumm [facility] Blood 11/11/2024 7:48 AM CDT 11/11/2024 8:16 AM CDT us Kalina Coronado NP LAB BLOOD ORDERABLES Fi nal Result Performing Organization Address [facility] Co de Phone Number [facility] [address] Department [place] [address] * Gentamicin level random (11/11/2024 7:48 AM CDT) [facility] Gentamicin random 9.8 mcg/mL Comment: Interpretive Data No reference ranges have been established for random drug levels. Current Interpretive Data was last revised on 2020. Blood 11/11/2024 7:48 AM CDT 11/11/2024 8:16 AM CDT us Kami Gleason MD LAB BLOOD ORDERABLES Final Res ult Performing Organization Address [facility] Co de Phone Number [facility] [address] Department [place] [address] * (ABNORMAL) Basic metabolic panel (11/11/2024 7:48 AM CDT) [facility] Sodium 134(L) 135 - 145 mmol/L Potassium, pl 4.0 3.3 - 4.9 mmol/L [facility] Chloride 101 97 - 110 mmol/L [facility] CO2 24 22 - 32 mmol/L [facility] Anion gap 9 2 - 15 mmol/L [facility] BUN 35(H) 6 - 25 mg/dL [facility] Creatinine 1.50(H) 0.80 - 1.30 mg/dL [facility] Glucose 136 70 - 199 mg/dL [facility] Comment: Interpretive Data Fasting glucose >/= [...] 2022. Calcium 9.4 8.5 - 10.3 mg/dL [facility] Blood 11/11/2024 7:48 AM CDT 11/11/2024 8:16 AM CDT Kami Gleason MD LAB BLOOD ORDERABLES Final Res ult Performing Organization Address [facility]/ZIP Co de Phone Number [facility] [address] [address] * POCT glucose (11/11/2024 6:41 AM CDT) Glucose, POC 155 70 - 199 mg/dL Comment: For Glucose values <35 mg/dl when Hematocrit is >60 mg/dl,the test may not accurately detect significant hypoglycemia,and testing in the Laboratory should be considered if clinically indicated. Blood 11/11/2024 6:41 AM CDT 11/11/2024 6:41 AM CDT [facility] MD LAB POCT ORDERABLES - DEVICE F inal Result Performing Organization Address [facility]/ZIP Co de Phone Number [facility] [address] Department [place] [address] * POCT glucose (11/10/2024 8:11 PM CDT) Glucose, POC 179 70 - 199 mg/dL Comment: For Glucose values <35 mg/dl when Hematocrit is >60 mg/dl,the test may not accurately detect significant hypoglycemia,and testing in the Laboratory should be considered if clinically indicated. Blood 11/10/2024 8:11 PM CDT 11/10/2024 8:11 PM CDT [facility] MD LAB POCT ORDERABLES - DEVICE F inal Result Performing Organization Address [facility] Co de Phone Number [facility] [address] Department [place] [address] * POCT glucose (11/10/2024 4:46 PM CDT) Glucose, POC 134 70 - 199 mg/dL Comment: For Glucose values <35 mg/dl when Hematocrit is >60 mg/dl,the test may not accurately detect significant hypoglycemia,and testing in the Laboratory should be considered if clinically indicated. Blood 11/10/2024 4:46 PM CDT 11/10/2024 4:46 PM CDT [facility] LAB POCT ORDERABLES - DEVICE F inal Result Performing Organization Address [facility] Co de Phone Number [facility] [address] [facility] [place] [address] * POCT glucose (11/10/2024 12:00 PM CDT) Glucose, POC 98 70 - 199 mg/dL Comment: For Glucose values <35 mg/dl when Hematocrit is >60 mg/dl,the test may not accurately detect significant hypoglycemia,and testing in the Laboratory should be considered if clinically indicated. Blood 11/10/2024 12:0 0 PM CDT 11/10/2024 12:00 PM CDT [facility] MD LAB POCT ORDERABLES - DEVICE F inal Result Performing Organization Address [facility] Co de Phone Number [facility] [address] [place] [address] * POCT glucose (11/10/2024 7:38 AM CDT) Glucose, POC 112 70 - 199 mg/dL Comment: For Glucose values <35 mg/dl when Hematocrit is >60 mg/dl,the test may not accurately detect significant hypoglycemia,and testing in the Laboratory should be considered if clinically indicated. Blood 11/10/2024 7:38 AM CDT 11/10/2024 7:38 AM CDT [facility] MD LAB POCT ORDERABLES - DEVICE F inal Result Performing Organization Address [facility] de Phone Number [facility] [address] [facility] [place] [address] * (ABNORMAL) POCT glucose (11/09/2024 8:32 PM CDT) Glucose, POC 222(H) 70 - 199 mg/dL Comment: For Glucose values <35 mg/dl when Hematocrit is >60 mg/dl,the test may not accurately detect significant hypoglycemia,and testing in the Laboratory should be considered if clinically indicated. Blood 11/09/2024 8:32 PM CDT 11/09/2024 8:32 PM CDT [facility] LAB POCT ORDERABLES - DEVICE F inal Result Performing Organization Address [facility] de Phone Number [facility] [address] [facility] [place] [address] * POCT glucose (11/09/2024 5:35 PM CDT) Glucose, POC 171 70 - 199 mg/dL Comment: For Glucose values <35 mg/dl when Hematocrit is >60 mg/dl,the test may not accurately detect significant hypoglycemia,and testing in the Laboratory should be considered if clinically indicated. Blood 11/09/2024 5:35 PM CDT 11/09/2024 5:35 PM CDT [facility] MD LAB POCT ORDERABLES - DEVICE F inal Result Performing Organization Address [facility] Co de Phone Number [facility] [address] [place] [address] * (ABNORMAL) eGFR (11/09/2024 4:58 PM CDT) eGFR 53(L) >=60 mL/min/1. 73 m2 Comment: [...] ORDERABLES Final Res ult Performing Organization Address [facility]/ZIP Co de Phone Number [facility] [address] [place] [address] * (ABNORMAL) Basic metabolic panel (11/09/2024 4:58 PM CDT) Pathologist [facility] Sodium 134(L) 135 - 145 mmol/L Potassium, pl 4.6 3.3 - 4.9 mmol/L [facility] Chloride 101 97 - 110 mmol/L [facility] CO2 21(L) 22 - 32 mmol/L [facility] Anion gap 12 2 - 15 mmol/L [facility] BUN 29(H) 6 - 25 mg/dL [facility] Creatinine 1.39(H) 0.80 - 1.30 mg/dL [facility] Glucose 203(H) 70 - 199 mg/dL [facility] Comment: Interpretive Data Fasting glucose >/= [...] 2022. Calcium 10.0 8.5 - 10.3 mg/dL [facility] Blood 11/09/2024 4:58 PM CDT 11/09/2024 5:50 PM CDT Kami Gleason MD LAB BLOOD ORDERABLES Final Res ult Performing Organization Address City/[facility]/ZIP Co de Phone Number [facility] [address] [address] * POCT glucose (11/09/2024 10:08 AM CDT) [facility] Signature Glucose, POC 167 70 - 199 mg/dL Comment: For Glucose values <35 mg/dl when Hematocrit is >60 mg/dl,the test may not accurately detect significant hypoglycemia,and testing in the Laboratory should be considered if clinically indicated. Blood 11/09/2024 10:0 8 AM CDT 11/09/2024 10:08 AM CDT Kami Gleason MD LAB POCT ORDERABLES - DEVICE F inal Result Performing Organization Address City/[facility]/ZIP Co de Phone Number [facility] [address] Department [place] [address] * POCT glucose (11/09/2024 9:20 AM CDT) [facility] Signature Glucose, POC 163 70 - 199 mg/dL Comment: For Glucose values <35 mg/dl when Hematocrit is >60 mg/dl,the test may not accurately detect significant hypoglycemia,and testing in the Laboratory should be considered if clinically indicated. Blood 11/09/2024 9:20 AM CDT 11/09/2024 9:20 AM CDT Kami Gleason MD LAB POCT ORDERABLES - DEVICE F inal Result [facility] [address] [place] [address] * [place] AN ELECTIVE ENDOTRACHEAL AIRWAY, [place] AN PROCEDURE PLACEHOLDER (11/09/2024 7:54 AM CDT) Narrative Jorge Sun CRNA - 11/09/2024 7:54 AM CDT Jorge Sun CRNA 11/09/2024 7:55 AM Airway Patient location: OR Urgency: elective Indications for airway management: anesthesia and airway protection Difficult airway: no Staff: Supervising provider: Lai Gregg DO Placed by: FAMILY MANAGER: Jorge Sun CRNA Emergent airway documentation: Risks [...] tape Number of attempts: 1 us Lai Wynneett DO ANESTHESIA ORDERAB LES Final Result * POCT glucose (11/09/2024 6:43 AM CDT) Glucose, POC 135 70 - 199 mg/dL Comment: For Glucose values <35 mg/dl when Hematocrit is >60 mg/dl,the test may not accurately detect significant hypoglycemia,and testing in the Laboratory should be considered if clinically indicated. Blood 11/09/2024 6:43 AM CDT 11/09/2024 6:43 AM CDT us Kami lGeason MD LAB POCT ORDERABLES - DEVICE F inal Result [facility] [address] [place] [address] * (ABNORMAL) Urinalysis reflex to microscopic and culture Urine, bladder (10/26/2024 1:43 PM ROOFING LABORER) Color, ur Straw Yellow Clarity, ur Clear Clear [facility] Specific gravity, ur 1.010 1.003 - 1.030 [facility] pH, urine 6.5 [facility] Comment: Interpretive Data U rine pH is affected by diet, medications, systemic acid-base disturbances, and renal tubular function. pH may affect urinary stone formation. For example, urine pH below 6.0 may help reduce the tendency for calcium phosphate stones and pH greater than 6.0 may reduce the tendency for uric acid stone formation. Source: [facility] Current Interpretive Data was last revised on 2017 Protein, ur ql Trace Negative [facility] Glucose, ur ql Negative Negative [facility] Ketones, ur Negative Negative [facility] Bilirubin, ur Negative Negative [facility] Blood, ur 1+(A) Negative [facility] Urobilinogen, ur <2.0 <2.0 mg/dL [facility] Nitrite, ur Negative Negative [facility] Leukocyte esterase, ur Negative Negative [facility] UA reflex comment Reflex to microscopic UA will be performed. [facility] Urine, bladder 10/26/2024 1: 43 PM ROOFING LABORER 10/26/2024 2:03 PM ROOFING LABORER Kami Gleason MD LAB MICROBIOLOGY - GENERAL ORD ERABLES Final Result Performing Organization Address City/[facility]/ZIP Co de Phone Number [facility] [address] Department [place] [address] * Urinalysis, microscopic only (10/26/2024 1:43 PM ROOFING LABORER) WBC, ur 0-5 0 - 5 /HPF RBC, ur 0-2 0 - 2 /HPF [facility] Culture Reflex Comment Reflex conditions for urine culture (WBC >10) not met. [facility] Urine, bladder 10/26/2024 1: 43 PM ROOFING LABORER 10/26/2024 2:03 PM ROOFING LABORER Kami Gleason MD LAB URINE ORDERABLES Final Res ult Performing Organization Address [facility]/ZIP Co de Phone Number [facility] [address] Department [place] [address] * (ABNORMAL) eGFR (09/27/2024 10:40 AM ROOFING LABORER) eGFR 42(L) >=60 mL/min/1. 73 m2 Comment: [...] reviewed 2021. Blood 09/27/2024 10:4 0 AM ROOFING LABORER 09/27/2024 10:57 AM ROOFING LABORER us Chicho Clayton MD LAB BLOOD ORDERABLES Final Resul t [facility] [place] [address] * (ABNORMAL) Differential, auto (09/27/2024 10:40 AM ROOFING LABORER) Neutrophil abs 7.8(H) 1.5 - 6.5 K/cumm Comment:Testing performed by : [facility], [address] [place] [phone] Lymphocyte abs 1.5 0.8 - 3.3 K/cumm [facility] Comment:Testing performed by : [facility], [address] [place] [phone] Monocyte abs 0.6 0.2 - 0.8 K/cumm [facility] Comment:Testing performed by : [facility], [address] [place] [phone] Eosinophil abs 0.1 0.0 - 0.5 K/cumm [facility] Comment:Testing performed by : [facility], [address] [place] [phone] Basophil abs 0.1 0.0 - 0.1 K/cumm [facility] Comment:Testing performed by : [facility], [address] [place] [phone] Neutrophil pct 77.5 % [facility] Comment: Interpretive Data Percent cell count reference ranges are not reported, since discordance with absolute values may lead to misinterpretation of CBC data. Current Interpretive Data was last revised on 2017. Testing performed by: [facility], [address] [place] [phone] Lymphocyte pct 14.9 % [facility] Comment: Interpretive Data Percent cell count reference ranges are not reported, since discordance with absolute values may lead to misinterpretation of CBC data. Current Interpretive Data was last revised on 2017. Testing performed by: [facility], [address] [place] [phone] Monocyte pct 5.7 % [facility] BRYSON Comment: Interpretive Data Percent cell count reference ranges are not reported, since discordance with absolute values may lead to misinterpretation of CBC data. Current Interpretive Data was last revised on 2017. Testing performed by: [facility], [address] [place] [phone] Eosinophil pct 1.3 % [facility] BRYSON Comment: Interpretive Data Percent cell count reference ranges are not reported, since discordance with absolute values may lead to misinterpretation of CBC data. Current Interpretive Data was last revised on 2017. Testing performed by: [facility], [address] [place] [phone] Basophil pct 0.6 % [facility] BRYSON Comment: Interpretive Data Percent cell count reference ranges are not reported, since discordance with absolute values may lead to misinterpretation of CBC data. Current Interpretive Data was last revised on 2017. Testing performed by: [facility], [address] [place] [phone] Blood 09/27/2024 10:4 0 AM ROOFING LABORER 09/27/2024 10:56 AM ROOFING LABORER us Chicho Clayton MD LAB BLOOD ORDERABLES Final Resul t [facility] Department [place] [address] * (ABNORMAL) CBC with auto differential (09/27/2024 10:40 AM ROOFING LABORER) WBC 10.0(H) 3.8 - 9.9 K/cumm Comment:Testing performed by : [facility], [address] [place] [phone] Hgb 10.5(L) 13.0 - 17.5 g/dL D[facility]IN PERDOMO Comment:Testing performed by : [facility], [address] [place], [place] [phone] Hct 30.8(L) 38.9 - 50.3 % [facility] BJ Comment:Testing performed by : [facility], [address] [place], [place] [phone] Plt 206 150 - 400 K/cumm [facility] BJ Comment:Testing performed by : [facility], [address] [place], [place] [phone] MPV 8.9 6.8 - 10.4 fL [facility]J Comment:Testing performed by : [facility], [address] [place], [place] [phone] RBC 3.33(L) 4.30 - 5.80 M/cumm [facility]J Comment:Testing performed by : [facility], [address] [place], [place] [phone] MCV 92.4 81.3 - 96.4 fL [facility]J Comment:Testing performed by : [facility], [address] [place], [place] [phone] MCH 31.6 27.1 - 33.3 pg [facility] Comment:Testing performed by : [facility], [address] [place], [place] [phone] MCHC 34.2 32.3 - 35.7 g/dL [facility]J Comment:Testing performed by : [facility], [address] [place], [place] [phone] RDW CV 14.0 11.1 - 14.9 % [facility]J Comment:Testing performed by : [facility], [address] [place], [place] [phone] NRBC abs 0.00 0.00 - 0.01 K/cumm [facility]J Comment:Testing performed by : [facility], [address] [place], [place] [phone] Blood 09/27/2024 10:4 0 AM ROOFING LABORER 09/27/2024 10:56 AM ROOFING LABORER us Chicho Clayton MD LAB BLOOD ORDERABLES Final Resul t Performing Organization Address [facility] Co de Phone Number [facility] Department [place] [place] [address] * PSA diagnostic (09/27/2024 10:40 AM ROOFING LABORER) PSA-Total 5.26 <=6.20 ng/mL Comment: Interpretive Data [...] revised 22. Blood 09/27/2024 10:4 0 AM ROOFING LABORER 09/27/2024 10:57 AM ROOFING LABORER us Chicho Clayton MD LAB BLOOD ORDERABLES Final Resul t Performing Organization Address [facility] Co de Phone Number [facility] Department [place] [address] * Lactate dehydrogenase (LD) (09/27/2024 10:40 AM ROOFING LABORER) Lactate dehydrogenase (LDH) 121 100 - 250 Units/L Blood 09/27/2024 10:4 0 AM ROOFING LABORER 09/27/2024 10:57 AM ROOFING LABORER us Chicho Clayton MD LAB BLOOD ORDERABLES Final Resul t Performing Organization Address City/[facility] Co de Phone Number [facility] [place] [address] * (ABNORMAL) Comprehensive metabolic panel (09/27/2024 10:40 AM ROOFING LABORER) Sodium 142 135 - 145 mmol/L Potassium, pl 4.1 3.3 - 4.9 mmol/L [facility] Chloride 108 97 - 110 mmol/L [facility] CO2 29 22 - 32 mmol/L [facility] Anion gap 5 2 - 15 mmol/L [facility] BUN 32(H) 6 - 25 mg/dL [facility] Creatinine 1.68(H) 0.80 - 1.30 mg/dL [facility] Glucose 182 70 - 199 mg/dL [facility] Comment: Interpretive Data Fasting glucose [...] 2022. Calcium 10.4(H) 8.5 - 10.3 mg/dL [facility] Bilirubin, total 0.2 0.1 - 1.2 mg/dL [facility] Protein, pl 6.9 6.5 - 8.5 g/dL [facility] Albumin 3.7 3.5 - 5.0 g/dL [facility] Alk phos 102 40 - 130 Units/L [facility] ALT 14 7 - 55 Units/L [facility] AST 17 10 - 50 Units/L [facility] Blood 09/27/2024 10:4 0 AM ROOFING LABORER 09/27/2024 10:57 AM ROOFING LABORER us Chicho Clayton MD LAB BLOOD ORDERABLES Final Resul t [facility] Department [place] [address] * (ABNORMAL) Lipid panel (03/22/2024 10:23 AM [...] on 2018. Triglycerides 115 <=149 mg/dL [facility] Comment: Interpretive Data Ages < [...] revised on 2018. HDL 37(L) >=40 mg/dL [facility] Comment: Interpretive Data Ages < [...] 2018. LDL, calculated 67 <=129 mg/dL [facility] Comment: Interpretive Data Ages < [...] revised on 2018. Non-HDL Cholesterol 90 mg/dL [facility] Comment: Interpretive Data Ages < [...] last revised on 2018. Chol/HDL ratio 3 [facility] Blood 03/22/2024 10:2 3 AM CDT 03/22/2024 10:52 AM CDT us Antonette Rater PRODUCT SUPPORT MANAGER LAB BLOOD ORDERABLES Final Resul t [facility] [place] [address] * CTA Abdominal Aorta And Bilateral Iliofemoral [...] * (ABNORMAL) Hemoglobin A1c (09/22/2023 12:19 PM ROOFING LABORER) Hgb A1C 6.0(H) 4.0 - 5.6 % [facility] Estimated Average Glucose 126 mg/dL [facility] Comment: The ADA recommends reporting an estimated Average Glucose (eAG) with all Hemoglobin A1c results using the equation derived from a study of 507 normal and diabetic adults. Minority populations were underrepresented and children were not included. (Diabetes Care 2020; 43(S1): S66-S76). The eAG is not equivalent to a fasting glucose. Blood 09/22/2023 12:1 9 PM ROOFING LABORER 09/22/2023 12:45 PM ROOFING LABORER Chicho Clayton MD LAB BLOOD ORDERABLES Final Resul t [facility] [place] [address] from Last 3 Months or Most Recently Relevant to Health Maintenance Insurance [facility] MEDICARE MEDICARE [facility] MEDICARE [facility] MEDICARE [facility] Advance Directives For more information, please contact: [phone] * Full Code (Latest Code Status on File) Date Activated Date Inactivated Comments 11/09/2024 2:36 PM 11/12/2024 6:36 PM * Full Code Date Activated Date Inactivated Comments 10/30/2022 5:29 PM 10/31/2022 7:15 PM * Full Code Date Activated Date Inactivated Comments 08/16/2019 9:46 AM 08/16/2019 5:30 PM Care Teams Loader [employer] Relationship Specialty Start Date End Date Fuentes Orellana MD PCP - General 11/28/16 Itz Iyer MD [address] [address] Consulting Physician Urology 05/31/18 Shawnee Mckinney MD [address] [facility] [address] [place] [address] Referring Physician Urology 06/03/18 Chicho Clayton MD [address] [facility] [address] [place] [address] Medical Oncologist/Hematologis t Medical Oncology 06/07/18 Maria Guadalupe Palacios, BARAK Registered Nurse 06/10/18 Lupillo Davenport MD Referring Physician Radiation Oncology 06/16/18 Danis Meza NP [address] [place] [address] Nurse Practitioner Urology 10/06/22 Antonette Owens NP [address] [place] [address] Nurse Practitioner Cardiovascular Disease 10/06/22 Aniceto Foley MD [address] [facility] [id number] [place] [address] Surgeon Vascular Surgery 10/31/22
--- OUTSIDE RECORDS SUMMARY | 2024-12-17 16:42 | XMS_ITS | CONTINUITY OF CARE DOCUMENT ---
Author Name malik gan Address Unknown Organization [facility] Address [address] [place] [address] [address] [place] [address] Phone [phone] Care Team Providers Care Gear Setter Name Role Phone Dinh BARRERA, [facility] Unavailable [phone]
--- OUTSIDE RECORDS SUMMARY | 2024-12-17 16:42 | XMS_ITS | Encounter Summary ---
Author Organization [facility] Address [address] [place] [address] Phone Care Team Providers Care Electrophysiology Scientist Name Role Phone Fuentes Orellana MD Primary Care Provider Brent Dickinson DO Unavailable [phone] Faviola Jiménez HISTORIAN DRAMATIC ARTS, CERTIFIED ATHLETIC TRAINER Unavailable Shawnee Mckinney MD Unavailable Chicho Clayton MD Unavailable Lai Lambert HISTORIAN DRAMATIC ARTS, CERTIFIED ATHLETIC TRAINER Unavailable [phone] Kami Meneses MD Unavailable [phone] Anette Bond MD Unavailable [phone] Kay Gordon HISTORIAN DRAMATIC ARTS, CERTIFIED ATHLETIC TRAINER Unavailable Kami Meneses MD Unavailable Encounter Details Date Type Department Care Team (Late st Contact Info) Description 08/22/2024 Telephone [facility] [address] [place] [address] Kami Meneses MD [address] [address] Social History Tobacco Use Types Packs/Day Years [...] 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 REL PATTERNMAKER * Telephone Encounter - Elidia Dill - 08/29/2024 8:20 AM CST Please see Dr. Otto message. REL PATTERNMAKER * Telephone Encounter - Kami Meneses MD [...] sphincter. This needs to be done at [facility] by me. He will need a urine culture 14 days prior to surgery. Hibiclens shower the night before morning of surgery, vancomycin and gentamicin for antibiotics REL PATTERNMAKER REL PATTERNMAKER documented in this encounter Plan of Treatment Upcoming Encounters Date Type Department Care Team (Late st Contact Info) Description 01/27/2025 9:45 AM CDT Office Visit [facility] [address] [place] [address] Kami Meneses MD #[address] [facility], [address] [address] documented as of this encounter Visit Diagnoses Not on filedocumented in this encounter Care Teams Electrophysiology Scientist Relationship Specialty Start Date End Date Fuentes Orellana MD [address] [place] [address] PCP - General Family Medicine 07/06/15 Brent Dickinson DO [address] [place] [address] Gastroenterology 06/27/16 Faviola Jiménez APRN, CERTIFIED ATHLETIC TRAINER [address] [place] [address] Nurse Practitioner Advanced Practice Nurse 07/22/16 Shawnee Mckinney MD [address] [facility] [address] [place] [address] Urologist Urology 06/07/19 Chicho Clayton MD [address] [facility] [address] [place] [address] Oncology 06/13/19 Lai Lambert APRN, CERTIFIED ATHLETIC TRAINER [address] [place] [address] Nurse Practitioner Advanced Practice Nurse 02/10/23 Kami Meneses MD [address] [facility] [address] [place] [address] Consulting Physician Urology 06/16/23 Anette Bond MD #[address] [place] [address] Consulting Physician Gastroenterology 12/25/22 Kay Gordon APRN, CERTIFIED ATHLETIC TRAINER #2 [place] [address] Nurse Practitioner Advanced Practice Nurse 06/16/24 Kami Meneses MD [facility] [facility] [address] [place] [address] Consulting Physician Urology 08/19/24 documented as of this encounter
--- OUTSIDE RECORDS SUMMARY | 2024-12-17 16:42 | XMS_ITS | Clinical Summary ---
Author Organization [facility] Address [address] [place] [address] Care Team Providers Care Laborer Sawmill Name Role Phone Fuentes Orellana MD Primary Care Provider [phone] Allergies No known active allergies Medications amLODIPine [...] Colonoscopy (10 Years) 1949 Hepatitis C 1967 Pneumococcal Vaccine: 50+ Years (1 of 1 - PCV) 1999 Zoster Vaccines (1 of 2) 1999 Annual Medicare Wellness Visit 2014 COVID-19 Vaccine ( season) 2024 06/27/2022, 08/15/2021, 11/24/2020, Additional history exists RSV Immunization or 60+ [...] age to complete this topic Insurance [facility] Care Teams Laborer Sawmill Relationship Specialty Start Date End Date Fuentes Orellana MD [address] [place] [id number] PCP - General FAMILY PRACTICE 11/29/22
--- OUTSIDE RECORDS SUMMARY | 2024-12-17 16:42 | XMS_ITS | Encounter Summary ---
Author Organization [email or web address] Care Team Providers Care Oracle Soa Consultant Name Role Phone Fuentes Orellana MD Primary Care Provider Brent Dickinson DO Unavailable [phone] Faviola Jiménez APRN, LORRY WEIGHER Unavailable Shawnee Mckinney MD Unavailable Chicho Clayton MD Unavailable Lai Lambert BUSINESS SUPPORT MANAGER, LORRY WEIGHER Unavailable [phone] Kami Meneses MD Unavailable [phone] Anette Bond MD Unavailable [phone] Kay Gordon APRN, LORRY WEIGHER Unavailable Kami Meneses MD Unavailable [phone] Encounter Details Date Type Department Care Team (Latest Contact Info) Description 12/16/2024 Travel Social History Tobacco Use Types Packs/Day Years [...] 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 Not on file Not on file Not on cory e documented as of this encounter Plan of Treatment Upcoming Encounters Date Type Department Care Team (Late st Contact Info) Description 01/27/2025 9:45 AM CDT Office Visit [facility] [address] [place] [address] Kami Meneses MD [address] [address] documented as of this encounter Visit Diagnoses Not on filedocumented in this encounter Care Teams Oracle Soa Consultant Relationship Specialty Start Date End Date Fuentes Orellana MD [address] [place] [address] PCP - General Family Medicine 07/06/15 Brent Dickinson DO [address] [place] [id number] Gastroenterology 06/27/16 Faviola Jiménez APRN, LORRY WEIGHER [address] [place] [address] Nurse Practitioner Advanced Practice Nurse 07/22/16 Shawnee Mckinney MD [address] [facility] [address] [place] [address] Urologist Urology 06/07/19 Chicho Clayton MD [address] [facility] [address] [place] [address] Oncology 06/13/19 Lai Lambert APRN, LORRY WEIGHER [address] [place] [address] Nurse Practitioner Advanced Practice Nurse 02/10/23 Kami Meneses MD [facility] [facility] [address] [place] [address] Consulting Physician Urology 06/16/23 Anette Bond MD #2 [facility] [place] [address] Consulting Physician Gastroenterology 12/25/22 Kay Gordon APRN, LORRY WEIGHER #2 [place] [address] Nurse Practitioner Advanced Practice Nurse 06/16/24 Kami Meneses MD [address] [place] [address] Consulting Physician Urology 08/19/24 documented as of this encounter
--- OUTSIDE RECORDS SUMMARY | 2024-12-17 16:42 | XMS_ITS | Clinical Summary ---
Author Organization Unknown Care Team Providers Care Joist Setter Name Role Phone PRABHJOT ESCOBAR, KIRK Unavailable Mikey MARTIN RN, ABI Unavailable Unavailable LOIS CLINICAL TRIALS MANAGER, RICARDA Unavailable Unavailable MARCE PT, YANET Unavailable Unavailable VICTOR MANUEL MOP MAKER, DAPHNE Unavailable Unavailpatrciia PAGE OT, TAMIE Unavailable Unavailable Payers Payer Name Policy Type Policy Number Effective Date Expira tion Date MEDICARE.[facility] [id number] Problems Condition Name Condition Details Condition Category [...] 08-31 00:00: 00 [facility] [place] CORONARY ARTERY W/O ANG PCTRS Active 08-31 [...] SPECIFIED FUNCTIONAL IMPLANTS Active 08-31 00:00: 00 [facility] (CURRENT) USE OF ASPIRIN Active 08-31 00:00: [...] 325 mg tablet 11-09 00:00: 00 Yes [id number] PAIN 1 tablet DAILY 1 tablet DAILY (route: oral) Med Classific ation: Analgesic , Anti-infl ammatory or Antipyret ic sulfamethox azole 800 mg-trimetho prim 160 mg tablet 11-12 00:00: 00 11-19 23:59 :00 No [id number] PROPHYLATIC 1 tablet 2 TIMES DAILY 1 tablet 2 TIMES DAILY (route: oral) Med Classific ation: Anti-Infe ctive Agents metoprolol tartrate 25 mg tablet 11-03 00:00: 00 Yes [id number] HIGH BLOOD PRESSURE 1 tablet 2 TIMES DAILY 1 tablet 2 TIMES DAILY (route: oral) Med Classific ation: Cardiovas cular Therapy Agents rosuvastati n 40 mg tablet 11-02 00:00: 00 Yes [id number] CHOLESTEROL 1 tablet DAILY 1 tablet DAILY (route: oral) Med Classific ation: Cardiovas cular Therapy Agents Brilinta 60 mg tablet 11-12 00:00: 00 Yes [id number] BLOOD THINNER 1 tablet 2 TIMES DAILY 1 tablet 2 TIMES DAILY (route: oral) Med Classific ation: Hematolog ical Agents acetaminoph en 500 mg tablet 11-12 00:00: 00 Yes [id number] NEEDED FOR PAIN 1-5/10 ON A 1-10 SCALE OR FEVER GREATER THAN 100.1 2 tablet EVERY 6 HOURS 2 tablet EVERY 6 HOURS (route: oral) Med Classific ation: Analgesic , Anti-infl ammatory or Antipyret ic alendronate 70 mg tablet 11-12 00:00: 00 Yes [id number] OSTEOARTHRI TIS 1 tablet WEEKLY 1 tablet WEEKLY (route: oral) Med Classific ation: Endocrine allopurinol 300 mg tablet 11-12 00:00: 00 Yes [id number] GOUT 1 tablet DAILY 1 tablet DAILY (route: oral) Med Classific ation: Gout and Hyperuric emia Therapy alprazolam 0.25 mg tablet 11-12 00:00: 00 Yes [id number] NEEDED FOR ANXIETY 1 tablet 3 TIMES DAILY 1 tablet 3 TIMES DAILY (route: oral) Med Classific ation: Central Nervous System Agents amlodipine 5 mg tablet 11-12 00:00: 00 Yes [id number] HIGH BLOOD PRESSURE 1 tablet DAILY 1 tablet DAILY (route: oral) Med Classific ation: Cardiovas cular Therapy Agents cephalexin 500 mg capsule 11-12 00:00: 00 11-18 23:59 :00 No [id number] PROPHYLATIC 1 capsule 2 TIMES DAILY 1 capsule 2 TIMES DAILY (route: oral) Med Classific ation: Anti-Infe ctive Agents chlorthalid one 25 mg tablet 11-12 00:00: 00 Yes [id number] HIGH BLOOD PRESSURE 1 tablet DAILY 1 tablet DAILY (route: oral) Med Classific ation: Cardiovas cular Therapy Agents Kerendia 10 mg tablet 11-12 00:00: 00 Yes [id number] KIDNEY DISEASE 1 tablet DAILY 1 tablet DAILY (route: oral) Med Classific ation: Cardiovas cular Therapy Agents pantoprazol e 40 mg tablet,ingrid yed release 11-12 00:00: 00 Yes [id number] GASTROESOPH AGEAL REFULX DISEASE 1 tablet DAILY 1 tablet DAILY (route: oral) Med Classific ation: Gastroint estinal Therapy Agents telmisartan 80 mg tablet 11-12 00:00: 00 Yes [id number] HIGH BLOOD PRESSURE 1 tablet DAILY 1 tablet DAILY (route: oral) Med Classific ation: Cardiovas cular Therapy Agents Tradjenta 5 mg tablet 11-12 00:00: 00 Yes [id number] DIABETES 1 tablet DAILY 1 tablet DAILY (route: oral) Med Classific ation: Endocrine nitroglycer in 0.3 mg sublingual tablet 11-12 00:00: 00 Yes [id number] NEEDED FOR CHEST PAIN 1 tablet EVERY 5 MINUTES TIMES 3 1 tablet EVERY 5 MINUTES TIMES 3 (route: sublingual ) Med Classific ation: Cardiovas cular Therapy Agents glimepiride 1 mg tablet 12-13 00:00: 00 Yes [id number] DIABETES 1 mg 2 TIMES DAILY 1 mg 2 TIMES DAILY (route: oral) Alternate Route: BY MOUTH. Med Classific ation: Endocrine Gvoke 1 mg/0.2 mL subcutaneou s solution 12-13 00:00: 00 Yes [id number] LOW BLOOD SUGAR Per instruc tions NEEDED [...] RICK MD RN TO OBSERVE AND ASSESS, CLINICAL TRIALS MANAGER/COIL MAKER TO OBSERVE FOR RISK FOR FALLS AND INSTRUCT IN FALL PREVENTION, HOME SAFETY, MEDICATION MANAGEMENT, INFECTION PREVENTION, AND NUTRITION MANAGEMENT. RN/CLINICAL TRIALS MANAGER/COIL MAKER NURSE MAY PERFORM O2 SATURATION LEVEL ON ADMISSION, EVERY VISIT AND PRN FOR SHORTNESS OF BREATH FOR RN TO ASSESS/CLINICAL TRIALS MANAGER TO OBSERVE PATIENT, WITH NOTIFICATION TO THE PHYSICIAN IF SATURATION IS 90% IN THE ABSENCE OF MORE SPECIFIC PARAMETERS FROM THE PHYSICIAN. AGENCY MAY PERFORM A RESUMPTION OF CARE VISIT FOLLOWING ANY HOSPITAL ADMISSION. RN/CLINICAL TRIALS MANAGER/COIL MAKER TO MONITOR CO-MORBID CONDITIONS LISTED ON THE PLAN OF CARE AND ANY NEW CONDITIONS THAT PRESENT THEMSELVES DURING THIS EPISODE TO IDENTIFY CHANGES AND INTERVENE TO MINIMIZE COMPLICATIONS. [code = RN TO OBSERVE, ASSESS, EVALUATE, AND DEVELOP AN INDIVIDUALIZED PLAN OF CARE. AGENCY MAY ACCEPT ORDERS FROM CONSULTING PHYSICIANS KIRK RICK MD RN TO OBSERVE AND ASSESS, CLINICAL TRIALS MANAGER/COIL MAKER TO OBSERVE FOR RISK FOR FALLS AND INSTRUCT IN FALL PREVENTION, HOME SAFETY, MEDICATION MANAGEMENT, INFECTION PREVENTION, AND NUTRITION MANAGEMENT. RN/CLINICAL TRIALS MANAGER/COIL MAKER NURSE MAY PERFORM O2 SATURATION LEVEL ON ADMISSION, EVERY VISIT AND PRN FOR SHORTNESS OF BREATH FOR RN TO ASSESS/CLINICAL TRIALS MANAGER TO OBSERVE PATIENT, WITH NOTIFICATION TO THE PHYSICIAN IF SATURATION IS 90% IN THE ABSENCE OF MORE SPECIFIC PARAMETERS FROM THE PHYSICIAN. AGENCY MAY PERFORM A RESUMPTION OF CARE VISIT FOLLOWING ANY HOSPITAL ADMISSION. RN/CLINICAL TRIALS MANAGER/COIL MAKER TO MONITOR CO-MORBID CONDITIONS LISTED ON THE [...] OT EVALUATION] Future Scheduled Test MEDICATION MANAGEMENT; RN/CLINICAL TRIALS MANAGER/COIL MAKER TO REVIEW MEDICATIONS FOR INTERACTIONS, EFFECTIVENESS OF DRUG THERAPY, AND SIGNS/SYMPTOMS OF ADVERSE REACTIONS. MAY INSTRUCT AND REINFORCE MEDICATION TEACHING RELATED TO THE USE OF MEDICATIONS, DOSAGE, FREQUENCY, PURPOSE, SIDE EFFECTS, AND TO REPORT COMPLICATIONS. [code = MEDICATION MANAGEMENT; RN/CLINICAL TRIALS MANAGER/COIL MAKER TO REVIEW MEDICATIONS FOR INTERACTIONS, EFFECTIVENESS OF DRUG THERAPY, AND SIGNS/SYMPTOMS OF ADVERSE REACTIONS. MAY INSTRUCT AND REINFORCE MEDICATION TEACHING RELATED TO THE USE OF MEDICATIONS, DOSAGE, FREQUENCY, PURPOSE, SIDE EFFECTS, AND TO REPORT COMPLICATIONS.] Future Scheduled Test ANTICOAGUL ATION MANAGEMENT; RN TO ASSESS AND TEACH, CLINICAL TRIALS MANAGER/COIL MAKER TO OBSERVE/TEACH/MONITOR EFFECTIVENESS OF ANTICOAGULATION THERAPY. RN/CLINICAL TRIALS MANAGER/COIL MAKER TO INSTRUCT ON SIGNS AND SYMPTOMS OF BLEEDING/ADVERSE REACTIONS TO REPORT TO PHYSICIAN. RN/CLINICAL TRIALS MANAGER/COIL MAKER TO PERFORM PT/INR VIA VENIPUNCTURE OR COAGUCHECK PRN PHYSICIAN ORDERSS RN/CLINICAL TRIALS MANAGER/COIL MAKER TO FAX/CALL IN RESULTS TO PHYSICIAN TIMELY [code = ANTICOAGULATION MANAGEMENT; RN TO ASSESS AND TEACH, CLINICAL TRIALS MANAGER/COIL MAKER TO OBSERVE/TEACH/MONITOR EFFECTIVENESS OF ANTICOAGULATION THERAPY. RN/CLINICAL TRIALS MANAGER/COIL MAKER TO INSTRUCT ON SIGNS AND SYMPTOMS OF BLEEDING/ADVERSE REACTIONS TO REPORT TO PHYSICIAN. RN/CLINICAL TRIALS MANAGER/COIL MAKER TO PERFORM PT/INR VIA VENIPUNCTURE OR COAGUCHECK PRN PHYSICIAN ORDERSS RN/CLINICAL TRIALS MANAGER/COIL MAKER TO FAX/CALL IN RESULTS TO PHYSICIAN TIMELY ] Future Scheduled Test FALL REDUC TION MANAGEMENT; RN TO ASSESS AND OBSERVE, CLINICAL TRIALS MANAGER/COIL MAKER TO OBSERVE FALL RISK FACTORS AND EDUCATE PATIENT/CAREGIVER ON STRATEGIES TO MINIMIZE THE RISK OF FALLING. [code = FALL REDUCTION MANAGEMENT; RN TO ASSESS AND OBSERVE, CLINICAL TRIALS MANAGER/COIL MAKER TO OBSERVE FALL RISK FACTORS AND EDUCATE PATIENT/CAREGIVER ON STRATEGIES TO MINIMIZE THE RISK OF FALLING.] Future Scheduled Test GENITOURIN KEZIA MANAGEMENT; RN TO ASSESS AND TEACH, CLINICAL TRIALS MANAGER/COIL MAKER TO OBSERVE AND TEACH RELATED TO ALTERED GENITOURINARY STATUS TO MINIMIZE COMPLICATIONS AND REDUCE HOSPITALIZATION. [code = GENITOURINARY MANAGEMENT; RN TO ASSESS AND TEACH, CLINICAL TRIALS MANAGER/COIL MAKER TO OBSERVE AND TEACH RELATED TO ALTERED GENITOURINARY STATUS TO MINIMIZE COMPLICATIONS AND REDUCE HOSPITALIZATION.] Future Scheduled Test URINARY IN CONTINENCE MANAGEMENT; RN TO ASSESS AND TEACH, CLINICAL TRIALS MANAGER/LVNTO OBSERVE AND TEACH MANAGEMENT OF URINARY INCONTINENCE. TEACH/INSTRUCT ON PREVENTING INFECTION AND SKIN BREAKDOWN. RN/CLINICAL TRIALS MANAGER/COIL MAKER MAY INSTRUCT IN BLADDER TRAINING PROGRAM INDICATED. [code = URINARY INCONTINENCE MANAGEMENT; RN TO ASSESS AND TEACH, CLINICAL TRIALS MANAGER/LVNTO OBSERVE AND TEACH MANAGEMENT OF URINARY INCONTINENCE. TEACH/INSTRUCT ON PREVENTING INFECTION AND SKIN BREAKDOWN. RN/CLINICAL TRIALS MANAGER/COIL MAKER MAY INSTRUCT IN BLADDER TRAINING PROGRAM INDICATED.] Future Scheduled Test DIABETES M ANAGEMENT; RN TO ASSESS AND TEACH, COIL MAKER/CLINICAL TRIALS MANAGER TO OBSERVE AND TEACH INSTRUCTIONS OF DIABETIC CARE TO INCLUDE: DIET DIABETIC SKIN CARE, SIGNS AND SYMPTOMS OF HYPO/HYPERGLYCEMIA, PROPER ADMINISTRATION OF DIABETIC MEDICATION. RN/COIL MAKER/CLINICAL TRIALS MANAGER TO INSTRUCT ON DIABETIC FOOT CARE AND MONITOR FOR SKIN LESIONS ON LOWER EXTREMITIES. BLOOD GLUCOSE TESTING DAILY RN TO ASSESS AND TEACH, COIL MAKER/CLINICAL TRIALS MANAGER TO OBSERVE AND TEACH PATIENT/CAREGIVER ABILITY TO PERFORM AND RECORD BLOOD GLUCOSE TESTING ORDERED AND TO REPORT ABNORMAL FINDINGS TO PHYSICIAN. RN/COIL MAKER/CLINICAL TRIALS MANAGER MAY PERFORM BLOOD GLUCOSE TEST NEEDED. RN/COIL MAKER/CLINICAL TRIALS MANAGER TO REPORT TO PHYSICIAN BLOOD GLUCOSE READINGS GREATER THAN 300 OR LESS THAN 70 RN/COIL MAKER/CLINICAL TRIALS MANAGER TO INSTRUCT PATIENT ON IMPORTANCE OF HGBA1C MONITORING, KIDNEY FUNCTION TEST, EYE AND FOOT EXAMS. [code = DIABETES MANAGEMENT; RN TO ASSESS AND TEACH, COIL MAKER/CLINICAL TRIALS MANAGER TO OBSERVE AND TEACH INSTRUCTIONS OF DIABETIC CARE TO INCLUDE: DIET DIABETIC SKIN CARE, SIGNS AND SYMPTOMS OF HYPO/HYPERGLYCEMIA, PROPER ADMINISTRATION OF DIABETIC MEDICATION. RN/COIL MAKER/CLINICAL TRIALS MANAGER TO INSTRUCT ON DIABETIC FOOT CARE AND MONITOR FOR SKIN LESIONS ON LOWER EXTREMITIES. BLOOD GLUCOSE TESTING DAILY RN TO ASSESS AND TEACH, COIL MAKER/CLINICAL TRIALS MANAGER TO OBSERVE AND TEACH PATIENT/CAREGIVER ABILITY TO PERFORM AND RECORD BLOOD GLUCOSE TESTING ORDERED AND TO REPORT ABNORMAL FINDINGS TO PHYSICIAN. RN/COIL MAKER/CLINICAL TRIALS MANAGER MAY PERFORM BLOOD GLUCOSE TEST NEEDED. RN/COIL MAKER/CLINICAL TRIALS MANAGER TO REPORT TO PHYSICIAN BLOOD GLUCOSE READINGS GREATER THAN 300 OR LESS THAN 70 RN/COIL MAKER/CLINICAL TRIALS MANAGER TO INSTRUCT PATIENT ON IMPORTANCE OF HGBA1C MONITORING, KIDNEY FUNCTION TEST, EYE AND FOOT EXAMS.] Future Scheduled Test PAIN MANAG EMENT; RN TO ASSESS AND TEACH, COIL MAKER/CLINICAL TRIALS MANAGER TO OBSERVE AND TEACH AND PROVIDE EDUCATION ON PAIN MANAGEMENT TECHNIQUES. [code = PAIN MANAGEMENT; RN TO ASSESS AND TEACH, COIL MAKER/CLINICAL TRIALS MANAGER TO OBSERVE AND TEACH AND PROVIDE EDUCATION ON PAIN MANAGEMENT TECHNIQUES.] Future Scheduled Test RN/CLINICAL TRIALS MANAGER/COIL MAKER TO PERFORM/TEACH INCISION CARE TO SUPRAPUBIC AND PERINEUM AREA: KEEP CLEAN AND DRY. INSPECT DAILY. NO LOTIONS OR OINTMENTS TO INCISIONS. MAY SHOWER AND PAT INCISIONS DRY. LEAVE ADHESIVE INTACT. [code = RN/CLINICAL TRIALS MANAGER/COIL MAKER TO PERFORM/TEACH INCISION CARE TO SUPRAPUBIC AND PERINEUM AREA: KEEP CLEAN AND DRY. INSPECT DAILY. NO LOTIONS OR OINTMENTS TO INCISIONS. MAY SHOWER AND PAT INCISIONS DRY. LEAVE ADHESIVE INTACT. ] Future Scheduled Test PRN VISITS ; NUMBER OF RN/CLINICAL TRIALS MANAGER/COIL MAKER VISITS: 1 RN/CLINICAL TRIALS MANAGER/COIL MAKER TO PERFORM: ASSESSMENT AND EDUCATION FOR THE FOLLOWING REASONS: INTEGUMENTARY/INCISION COMPLICATIONS [code = PRN VISITS; NUMBER OF RN/CLINICAL TRIALS MANAGER/COIL MAKER VISITS: 1 RN/CLINICAL TRIALS MANAGER/COIL MAKER TO PERFORM: ASSESSMENT AND EDUCATION FOR THE FOLLOWING REASONS: INTEGUMENTARY/INCISION COMPLICATIONS] Future Scheduled Test RISK FOR H OSPITALIZATION; RN TO ASSESS/TEACH, COIL MAKER/CLINICAL TRIALS MANAGER TO OBSERVE/TEACH PATIENT/CAREGIVER ON RISK FOR HOSPITALIZATION/EMERGENCY ROOM VISITS, TEACH SIGNS AND SYMPTOMS THAT PUT PATIENT AT RISK, WHEN TO NOTIFY NURSE/PHYSICIAN OF COMPLICATIONS/DECLINE, AND WHEN TO CALL 911. [code = RISK FOR HOSPITALIZATION; RN TO ASSESS/TEACH, COIL MAKER/CLINICAL TRIALS MANAGER TO OBSERVE/TEACH PATIENT/CAREGIVER ON RISK FOR HOSPITALIZATION/EMERGENCY ROOM VISITS, TEACH SIGNS AND SYMPTOMS THAT PUT PATIENT AT RISK, WHEN TO NOTIFY NURSE/PHYSICIAN OF COMPLICATIONS/DECLINE, AND WHEN TO CALL 911.] Future Scheduled Test CARDIOVASC ULAR SYSTEM; RN TO ASSESS/TEACH, CLINICAL TRIALS MANAGER/COIL MAKER TO OBSERVE/TEACH RELATED TO ALTERED CARDIOVASCULAR STATUS TO MINIMIZE COMPLICATIONS AND REDUCE HOSPITALIZATION. [code = CARDIOVASCULAR SYSTEM; RN TO ASSESS/TEACH, CLINICAL TRIALS MANAGER/COIL MAKER TO OBSERVE/TEACH RELATED TO ALTERED CARDIOVASCULAR STATUS TO MINIMIZE COMPLICATIONS AND REDUCE HOSPITALIZATION.] Future Scheduled Test HYPERTENSI ON MANAGEMENT; RN TO ASSESS AND TEACH, CLINICAL TRIALS MANAGER/COIL MAKER TO OBSERVE AND TEACH WARNING SIGNS AND SYMPTOMS TO AVOID HOSPITALIZATION. [code = HYPERTENSION MANAGEMENT; RN TO ASSESS AND TEACH, CLINICAL TRIALS MANAGER/COIL MAKER TO OBSERVE AND TEACH WARNING SIGNS AND SYMPTOMS TO AVOID HOSPITALIZATION.] Future Scheduled Test URINARY MO LECULAR TESTING PROTOCOL UP TO 2 PRN RN/CLINICAL TRIALS MANAGER/COIL MAKER VISITS MAY BE PERFORMED FOR S/S OF UTI. RN TO ASSESS, CLINICAL TRIALS MANAGER/COIL MAKER TO OBSERVE INITIATION OF UTI PROTOCOL. RN/COIL MAKER/CLINICAL TRIALS MANAGER TO INSTRUCT PATIENT AND/OR CAREGIVER ON S/S OF UTI TO REPORT TO RN/COIL MAKER/CLINICAL TRIALS MANAGER IF NEW OR WORSENING SYMPTOMS. DRINK PLENTY OF WATER THROUGHOUT THE DAY TO MAINTAIN HYDRATION (UNLESS CONTRAINDICATED.) URINATE WHEN THE URGE IS FELT, DO NOT WAIT. WASH GENITALS DAILY. WIPE FROM FRONT TO BACK AFTER HAVING A BOWEL MOVEMENT. RN/COIL MAKER/CLINICAL TRIALS MANAGER TO OBTAIN MOLECULAR URINE TESTING BY OPTION 1 OR OPTION 2 RN/COIL MAKER/CLINICAL TRIALS MANAGER TO OBTAIN U/A WITH REFLEX TO UTI PANEL (MOLECULAR) VIA CLEAN CATCH URINE AND IF UNABLE TO OBTAIN MAY PERFORM AN IN AND OUT CATH. IF PATIENT HAS INDWELLING CATHETER MAY OBTAIN FROM SAMPLING PORT. RN/COIL MAKER/CLINICAL TRIALS MANAGER TO OBTAIN UTI PANEL (MOLECULAR) VIA SWAB COLLECTION METHOD FROM ADULT BRIEF/DIAPER OR PAD IF PATIENT IS INCONTINENT. NOTIFY PROVIDER OF RESULTS AND OBTAIN FURTHER ORDERS. [code = URINARY MOLECULAR TESTING PROTOCOL UP TO 2 PRN RN/CLINICAL TRIALS MANAGER/COIL MAKER VISITS MAY BE PERFORMED FOR S/S OF UTI. RN TO ASSESS, CLINICAL TRIALS MANAGER/COIL MAKER TO OBSERVE INITIATION OF UTI PROTOCOL. RN/COIL MAKER/CLINICAL TRIALS MANAGER TO INSTRUCT PATIENT AND/OR CAREGIVER ON S/S OF UTI TO REPORT TO RN/COIL MAKER/CLINICAL TRIALS MANAGER IF NEW OR WORSENING SYMPTOMS. DRINK PLENTY OF WATER THROUGHOUT THE DAY TO MAINTAIN HYDRATION (UNLESS CONTRAINDICATED.) URINATE WHEN THE URGE IS FELT, DO NOT WAIT. WASH GENITALS DAILY. WIPE FROM FRONT TO BACK AFTER HAVING A BOWEL MOVEMENT. RN/COIL MAKER/CLINICAL TRIALS MANAGER TO OBTAIN MOLECULAR URINE TESTING BY OPTION 1 OR OPTION 2 RN/COIL MAKER/CLINICAL TRIALS MANAGER TO OBTAIN U/A WITH REFLEX TO UTI PANEL (MOLECULAR) VIA CLEAN CATCH URINE AND IF UNABLE TO OBTAIN MAY PERFORM AN IN AND OUT CATH. IF PATIENT HAS INDWELLING CATHETER MAY OBTAIN FROM SAMPLING PORT. RN/COIL MAKER/CLINICAL TRIALS MANAGER TO OBTAIN UTI PANEL (MOLECULAR) VIA SWAB [...] End Date/Time Encounter Type Admission Type Attending [facility] Facility Care Department Encounter ID Discharge Date Discharge Status Discharge Condition Discharge Reason Percent Goals Met 2024-11-14 00:00:00 2025-01-12 00:00:00 Outpatient NEW ADMISSION [facility] [id number]
--- OUTSIDE RECORDS SUMMARY | 2024-12-17 16:42 | XMS_ITS ---
Author Organization [facility] [address] Address [address] [place] [address] Care Team Providers Care Brazer Assembler Name Role Phone Fuentes Orellana MD Primary Care Provider [phone] Itz Iyer MD Unavailable [phone] Shawnee Mckinney MD Unavailable [phone] Chicho Clayton MD Unavailable Maria Guadalupe Palacios RN Unavailable Unava ilable Lupillo Davenport MD Unavailable [phone] Danis Meza GRAIN SPOUTER Unavailable [phone] Antonette Owens NP Unavailable Aniceto Foley MD Unavailable [phone] Active Problems Problem Noted Date Diagnosed [...] (10/21/2022): Added automatically from request for surgery [id number] Assessment & Plan (10/30/2022 2:56 PM PLANER FEEDER): - OR 3/2 for planned R CEA - OU status, Q2h NV/VS monitoring - Bedrest today, OOB/PT POD #1 - SBP goal 100-160, nicardipine for elevated BP - Continue aspirin and statin - Plan to stager home medications and resume overnight 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 with intermittent claudication, bilateral legs 06/03/2022 Melanoma 01/10/2021 Anxiety 01/10/2021 DM (diabetes mellitus) 01/10/2021 Assessment & Plan (10/30/2022 9:59 AM PLANER FEEDER): - A1c 7.6% 10/2022 - SSI while inpatient - CC diet when eating Elevated left ventricular end-diastolic pressure (LVEDP) 11/15/2019 Encounter for surgical after care following surgery of circulatory system 05/20/2019 Prostate cancer 09/10/2018 Assessment & Plan (10/27/2018 9:53 AM PLANER FEEDER): Follows with urology, has his PSA monitored it is increasing, but still WNL 1.4 Assessment & Plan (09/22/2018 11:35 AM PLANER FEEDER): Has close follow up with his oncologist. His PSA was slightly elevated on last check. Hyperlipidemia 09/21/2017 Assessment & Plan (06/30/2018 9:38 AM CDT): His last lipid panel was within acceptable range; he will continue on a high intensity statin. Assessment & Plan (09/21/2017 11:34 AM PLANER FEEDER): Continue Lipitor 40 mg daily. Essential hypertension 07/20/2017 Assessment & Plan (10/30/2022 2:57 PM PLANER FEEDER): - Tight BP goals post-procedure - Continue home medications as indicated by BP goals as above, staggering overnight for gentle BP control Assessment & Plan (10/27/2018 9:54 AM PLANER FEEDER): Hypertension is unchanged. Dietary sodium restriction. Blood pressure will be reassessed in 4 weeks. Assessment & Plan (09/22/2018 11:38 AM PLANER FEEDER): Hypertension remains elevated. He is increasing his [...] today Assessment & Plan (09/21/2017 11:33 AM PLANER FEEDER): Blood pressure is well controlled today. Last visit we added HCTZ 12.5 mg daily. Continue current medications Assessment & Plan (08/10/2017 11:26 AM PLANER FEEDER): Blood pressure is not controlled. Add hydrochlorothiazide 12.5 mg p.o. daily. He is compliant with medications but always add salt to food which I advised him not to do that. Assessment & Plan (07/20/2017 9:19 AM PLANER FEEDER): Blood pressure remains uncontrolled. We will order renal Doppler ultrasound to rule out renal artery stenosis given the fact that he has peripheral vascular disease and coronary artery disease. I will increase amlodipine from 5-10 mg p.o. daily. If that does not control the blood pressure we will add hydrochlorothiazide 12.5 mg p.o. Daily. Coronary artery disease invo lving absentee-shawnee coronary artery of absentee-shawnee heart without angina pectoris 07/20/2017 Assessment & Plan (10/30/2022 9:58 AM PLANER FEEDER): - Continue home medications as able - Maintained on Brilinta as an outpatient; held 1 week prior to OR - Will discuss with surgery team when to safely resume post-procedure Assessment & Plan (10/27/2018 9:59 AM PLANER FEEDER): Coronary artery disease is improving with lifestyle modifications. Continue current treatment regimen. Cardiac status will be reassessed in 3 months. No chest pain. Minimal SOB. Continue asa, statin, brilinta Assessment & Plan (09/22/2018 11:36 AM PLANER FEEDER): Coronary artery disease is unchanged. Regular aerobic [...] BB. Assessment & Plan (09/21/2017 11:33 AM PLANER FEEDER): Continue aspirin, Brilinta, Toprol XL and atorvastatin. Assessment & Plan (08/10/2017 11:27 AM PLANER FEEDER): Continue Brilinta and aspirin. Asymptomatic. Assessment & Plan (07/20/2017 9:19 AM PLANER FEEDER): Continue aspirin, Brilinta, Lipitor , metoprolol PVD (peripheral vascular disease) 07/20/2017 Assessment & Plan (10/27/2018 9:21 AM PLANER FEEDER): S/P bilateral ALVA angioplasty; right EIA angioplasty/stent 11/21/14. S/P aortoiliac angioplasty/stent 05/28/09. Continues on asa, statin and brilinta Assessment & Plan (09/21/2017 11:34 AM PLANER FEEDER): He follows up with vascular surgery at [facility] Assessment & Plan (08/10/2017 11:27 AM PLANER FEEDER): Renal ultrasound suggest more than 60% stenosis in the right renal artery and infrarenal stenosis 50-70%. He follows up with Dr. Foley from vascular surgery at [facility] Assessment & Plan (07/20/2017 9:20 AM PLANER FEEDER): Patient will follow up with Dr. Foley from vascular surgery. He does have some claudication when he walks. Intrinsic urethral sphincter deficiency 06/08/20 15 Current Treatment and Therapy Plans No current plan information found. Past Treatment and Therapy Plans No past plan information found. Lifetime Dose Tracking * Chemical Lifetime Dose Automatic Entry Manual Entr y Fluoro Time 21.7 minutes 21.7 minutes 0 minutes Air kerma at the reference point (Ka,r) 1,085 mGy 6 66 mGy 419 mGy DLP 771 mGycm 771 mGycm 0 mGycm Resolved Problems Problem Noted Date Diagnosed Date Resolved Date Dizzinesses 10/27/2018 02/09/2019 Assessment & Plan (10/27/2018 10:17 AM PLANER FEEDER): Persistent dizziness. Has stopped caffeine intake. Has [...] implant or graft 6 02/09/2019 Atherosclerosis of absentee-shawnee artery of extremity 04/15/20 16 02/09/2019 Assessment & Plan (09/22/2018 11:26 AM PLANER FEEDER): 80% circumflex s/p RICHARD. 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 {plan; hypertension for POC:[id number]} Blood pressure will be reassessed {plan; follow-up 2 weeks/4weeks/3months:[id number]}. Increase amolodipine to 10 mg Continue all [...]
--- OUTSIDE RECORDS SUMMARY | 2024-12-17 16:42 | XMS_ITS | Encounter Summary ---
Author Organization [facility] Address [address] [facility] [address] [place] [address] Care Team Providers Care Co Founder And Chief Strategy Officer Name Role Phone Fuentes Orellana MD Primary Care Provider [phone] Fuentes Orellana MD Primary Care Provider [phone] Itz Iyer MD Unavailable [phone] Lupillo Davenport MD Unavailable [phone] Lupillo Davenport MD Unavailable [phone] Shawnee Mckinney MD Unavailable [phone] Chicho Clayton MD Unavailable Newton Weeks MD Unavailable [phone] Maria Guadalupe Palacios RN Unavailable Unava ilable Lupillo Davenport MD Unavailable [phone] Itz Iyer MD Unavailable [phone] Itz Iyer MD Unavailable [phone] Itz Iyer MD Unavailable [phone] Itz Iyer MD Unavailable [phone] Itz Iyer MD Unavailable [phone] Itz Iyer MD Unavailable [phone] Danis Meza DOUGH MOLDER HAND Unavailable [phone] Rater, Antonette DOUGH MOLDER HAND Unavailable Aniceto Foley MD Unavailable [phone] Encounter Details Date Type Department Care Team (Late st Contact Info) Description 11/18/2016 Orders Only [facility] Provider, MD Katie [facility] [place] [address] Social History Tobacco Use Types Packs/Day Years Used Date Smoking Tobacco: Never Assessed Sex and Gender Information Value Date Recorded Sex Assigned at Not on file Legal Sex Male 12:32 AM GEOLOGICAL E LOGGER Gender Identity Not on file Sexual Orientation [...] on filedocumented in this encounter Care Teams Co Founder And Chief Strategy Officer Relationship Specialty Start Date End Date Fuentes Orellana MD PCP - General 11/28/16 Fuentes Orellana MD PCP - General 07/14/07 11/27/16 Itz Iyer MD [address] [facility] [address] [place] [id number] Consulting Physician Urology 05/31/18 Lupillo Davenport MD [address] [place] [address] Referring Physician Radiation Oncology 05/31/18 Lupillo Davenport MD [address] [place] [address] Referring Physician Radiation Oncology 05/31/18 Shawnee Mckinney MD [address] [facility] [address] [place] [address] Referring Physician Urology 06/03/18 Chicho Clayton MD [address] [facility] [address] [place] [address] Medical Oncologist/Hematologis t Medical Oncology 06/07/18 Newton Weeks MD [address] [facility] [address] [place] [address] Referring Physician Radiation Oncology 06/07/18 Maria Guadalupe Palacios, RN Registered Nurse 06/10/18 Lupillo Davenport MD [address] [place] [address] Referring Physician Radiation Oncology 06/16/18 Itz Iyer MD [address] [address] Consulting Physician Urology 06/17/18 06/17/18 Itz Iyer MD [address] [address] Consulting Physician Urology 06/18/18 06/18/18 Itz Iyer MD [address] [place] [address] Consulting Physician Urology 06/18/18 06/18/18 Itz Iyer MD [address] [place] [address] Consulting Physician Urology 06/22/18 06/22/18 tIz Iyer MD [address] [place] [address] Consulting Physician Urology 07/01/18 07/01/18 Itz Iyer MD [address] [place] [address] Consulting Physician Urology 07/06/18 07/06/18 Danis Mzea NP [email or web address] [place] [address] Nurse Practitioner Urology 10/06/22 Antonette Owens NP [address] [place] [address] Nurse Practitioner Cardiovascular Disease 10/06/22 Aniceto Foley MD [id number] [place] [address] Surgeon Vascular Surgery 10/31/22 documented as of this encounter
--- OUTSIDE RECORDS SUMMARY | 2024-12-17 16:42 | XMS_ITS | Encounter Summary ---
Author Organization [facility] Address [address] [place] [address] Phone Care Team Providers Care Recruiting Intern Name Role Phone Fuentes Orellana MD Primary Care Provider [phone] Brent Dickinson DO Unavailable [phone] Faviola Jiménez MODELING DIRECTOR, DIRECTORY CARRIER Unavailable Shawnee Mckinney MD Unavailable Chicho Clayton MD Unavailable Lai Lambert MODELING DIRECTOR, DIRECTORY CARRIER Unavailable Kami Meneses MD Unavailable [phone] Anette Bond MD Unavailable [phone] Kay Gordon MODELING DIRECTOR, DIRECTORY CARRIER Unavailable Kami Meneses MD Unavailable [phone] Reason for Visit * Reason Comments Follow-up Encounter Details Date Type Department Care Team (Late st Contact Info) Description 12/16/2024 10:45 AM CDT Office Visit [facility] [address] [place] [address] Kami Meneses MD [address] [address] Stress incontinence (female) (male) (Primary Dx) Discharge Disposition: Discharged to home or Selfcare Social History Tobacco Use Types Packs/Day Years [...] Job 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 Date 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 Not on file Not on file Not on cory e documented as of this encounter Last Filed Vital Signs Vital Sign Reading Time Taken Comments Blood Pressure 134/64 12/16/2024 10:20 AM CDT Pulse 68 12/16/2024 10:20 AM CDT Temperature - - Respiratory Rate 18 12/16/2024 10:20 AM CDT Oxygen Saturation 98% 12/16/2024 10:20 AM CDT Inhaled Oxygen Concentration - - Weight 76.2 kg (168 lb) 12/16/2024 10:20 AM CDT Height 162.6 cm (5' 4 ) 12/16/2024 10:20 AM CDT Body Mass Index 28.84 12/16/2024 10:20 AM CDT documented in this encounter Progress Notes * Kami Meneses MD - 12/16/2024 10:45 AM CDT Reason for Visit: Prostate cancer, urinary incontinence, erectile dysfunction Assessment/Plan: Assessment & Plan 1. Urinary incontinence Revision of artificial sphincter went well. A new 3.5 cm cuff was placed with leakage noted at the cuff site. The incisions are healing well, and there is no evidence of erosion. He has been advised to urinate every 2 to 3 hours and avoid prolonged retention of urine. He has been informed that he can resume all activities, including heavy lifting, swimming, gardening, and lawn mowing, but should refrain from inserting anything into the penis, including catheters. 2. Erectile dysfunction. He has been informed that he can not take ED pills due to his current use of nitroglycerin 0.3 mg. Alternative treatment options discussed include injection therapy and surgical implantation of a penile prosthesis. He has opted to defer the penile prosthesis at this time. A prescription for injection therapy will be provided. He has been advised to start with a low dose and to alternate the injection site each time. Potential side effects, including priapism, bruising, and scar tissue formation, have been discussed. 3. Prostate cancer Need to ensure that the he has a adequate follow up for his prostate cancer. We will determine who follows him. Follow-up The patient will follow up in 4 weeks. Interval History: History of Present Illness The patient presents for evaluation of erectile dysfunction and status post surgery. He reports persistent soreness in the perineal region following his surgical procedure. He is not experiencing any bleeding, spotting, or bruising at the incision sites. He has previously used Cialis for erectile dysfunction, which he found to be effective. However, heexperienced severe headaches with Viagra. He has also tried injection therapy, which was beneficial. He is currently on a regimen of nitroglycerin 0.3 mg. MEDICATIONS Current: nitroglycerin 0.3 mg Past: Cialis, Viagra The complete REVIEW OF SYSTEMS, MEDICATION LIST and DRUG ALLERGIES, PAST MEDICAL HISTORY, FAMILY MEDICAL HISTORY and SOCIAL HISTORY are documented in detail were reviewed. The patient was asked to review all abnormal responses not pertinent to today's visit with their primary care physician. Physical Exam: Constitutional: General appearance: Well nourished, well developed, in no acute distress. Appears stated age, conversant Eyes: EOMI, no scleral icterus, no lid lag or proptosis Neurologic: Normal mood and affect, cranial nerves II-XII grossly intact. Respiratory: Normal respiratory effort. No use of accessory muscles Cardiovascular: No lower extremity edema or cyanosis. Ears, Nose, Throat, Mouth: midline trachea, no thryomegaly. Soft, supple appearing. Skin: Warm and dry. Gastrointestinal: Non-protrubrant Musculoskeletal: Moving all extremities, no distal cyanosis Psychiatry: Normal mood, alert and oriented. A&O x3. Interactive affect : WELL-HEALED INCISIONS, NO EVIDENCE OF WOUND BREAKDOWN OR INFECTION, PUMP IN GOOD POSITION. Results documented in this encounter Plan of Treatment Upcoming Encounters Date Type Department Care Team (Late st Contact Info) Description 01/27/2025 9:45 AM CDT Office Visit [facility] [address] [place] [address] Kami Meneses MD [address] [address] documented as of this encounter Visit Diagnoses Diagnosis Stress incontinence (female) (male)- Primary documented in this encounter Care Teams Recruiting Intern Relationship Specialty Start Date End Date Fuentes Orellana MD [address] [place] [id number] PCP - General Family Medicine 07/06/15 Brent Dickinson DO [address] [address] Gastroenterology 06/27/16 Faviola Jiménez, MODELING DIRECTOR, DIRECTORY CARRIER [address] [place] [address] Nurse Practitioner Advanced Practice Nurse 07/22/16 Shawnee Mckinney MD [address] [facility] [address] [place] [address] Urologist Urology 06/07/19 Chicho Clayton MD [address] [facility] [address] [place] [address] Oncology 06/13/19 Lai Lambert APRN, DIRECTORY CARRIER [address] [place] [address] Nurse Practitioner Advanced Practice Nurse 02/10/23 Kami Meneses MD #[address] [address] Consulting Physician Urology 06/16/23 Anette Bond MD #2 [place] [address] Consulting Physician Gastroenterology 12/25/22 Kay Gordon APRN, DIRECTORY CARRIER [address] [place] [address] Nurse Practitioner Advanced Practice Nurse 06/16/24 Kami Meneses MD #[address] [address] Consulting Physician Urology 08/19/24 documented as of this encounter
--- OUTSIDE RECORDS SUMMARY | 2024-12-17 16:42 | XMS_ITS | Encounter Summary ---
Author Organization [facility] Address [address] [facility] [place] [address] Phone Care Team Providers Care Group Work Program Director Name Role Phone Fuentes Orellana MD Primary Care Provider Brent Dickinson DO Unavailable [phone] Faviola Jiménez COOK SEAFOOD, EXCEPTIONAL CHILDREN TEACHER Unavailable Shawnee Mckinney MD Unavailable Chicho Clayton MD Unavailable Lai Lambert COOK SEAFOOD, EXCEPTIONAL CHILDREN TEACHER Unavailable [phone] Kami Meneses MD Unavailable [phone] Anette Bond MD Unavailable [phone] Kay Gordon APRN, EXCEPTIONAL CHILDREN TEACHER Unavailable Kami Meneses MD Unavailable [phone] Reason for Visit * Reason Comments Medication Refill Encounter Details Date Type Department Care Team (Late st Contact Info) Description 03/25/2021 Refill [facility] - [place] [address] [place] [id number] Ingrid Mccloud Ashley, PAC [address] [place] [address] Medication Refill Social History Tobacco Use Types [...] Job 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 Date 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 difficile Rule-Out 04/10/2021 04/10/20212020 12:16 AM CDT documented as of this encounter Care Teams Group Work Program Director Relationship Specialty Start Date End Date Fuentes Orellana MD [address] [place] [address] PCP - General Family Medicine 07/06/15 Brent Dickinson DO [address] [facility] [facility] [place] [address] Gastroenterology 06/27/16 Faviola Jiménez APRN, EXCEPTIONAL CHILDREN TEACHER [address] [place] [address] Nurse Practitioner Advanced Practice Nurse 07/22/16 Shawnee Mckinney MD [address] [facility] [address] [place] [address] Urologist Urology 06/07/19 Chicho Clayton MD [address] [facility] 7 [place] [address] Oncology 06/13/19 Lai Lambert APRN, EXCEPTIONAL CHILDREN TEACHER [address] [place] [address] Nurse Practitioner Advanced Practice Nurse 02/10/23 Kami Meneses MD #[address] [address] Consulting Physician Urology 06/16/23 Anette Bond MD #2 [place] [address] Consulting Physician Gastroenterology 12/25/22 Kay Gordon APRN, HODAN [address] [place] [address] Nurse Practitioner Advanced Practice Nurse 06/16/24 Kami Meneses MD #[address] [address] Consulting Physician Urology 08/19/24 documented as of this encounter
--- OUTSIDE RECORDS SUMMARY | 2024-12-17 16:42 | XMS_ITS | Clinical Summary ---
Author Organization [facility] Address [address] [place] [address] Phone Care Team Providers Care Wire Weaver Cloth Name Role Phone Fuentes Orellana MD Primary Care Provider [phone] Allergies No known active allergies Medications pantoprazole [...] Colonography Q 5 years 1994 PNEUMOCOCCAL VACCINE 50+ YEARS (1 of 1 - PCV) 09/08/19 00 ZOSTER VACCINE (1 of 2) 1999 INFLUENZA VACCINE (#1) 2024 06/15/2018 RSV VACCINE (60+ or ) (1 - 1-dose 75+ series) 2024 Medical Devices Implanted Type Area Cuff Setter Lockstitch Device Identifier Shelf Expiration Date Model / Serial / Lot Ams 800 Urinary Control System(Penile Implant) Description:MRI conditional for 3T or less -danisha 01/04/19 Insurance MEDICARE PART A AND B [facility] [id number] Care Teams Wire Weaver Cloth Relationship Specialty Start Date End Date Fuentes Orellana MD [address] [place] [address] PCP - General Family Practice 01/04/19
--- OUTSIDE RECORDS SUMMARY | 2024-12-17 16:42 | XMS_ITS | Encounter Summary ---
Author Organization [facility] Address [address] [facility] [place] [address] Phone Care Team Providers Care Dovetail Machine Operator Name Role Phone Fuentes Orellana MD Primary Care Provider Brent Dickinson DO Unavailable [phone] Faviola Jiménez NUMERICAL CONTROL NESTING OPERATOR, SALVAGE INSPECTOR WOOD PARTS Unavailable Shawnee M[place]in[place] MD Unavailable Chicho Clayton MD Unavailable Lai Lambert NUMERICAL CONTROL NESTING OPERATOR, SALVAGE INSPECTOR WOOD PARTS Unavailable [phone] Kami Meneses MD Unavailable [phone] Anette Bond MD Unavailable [phone] Kay Gordon APRN, SALVAGE INSPECTOR WOOD PARTS Unavailable Kami Meneses MD Unavailable [phone] Reason for Visit * Reason Comments Medication Refill Encounter Details Date Type Department Care Team (Late st Contact Info) Description 11/12/2022 Refill [facility] - [facility] - [place] [address] [place] [id number] Ingrid Mccloud Ashley, PAC [address] [place] [address] Medication Refill Social History Tobacco Use Types [...] Job 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 Date 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 on file Not on file Not [...] [facility] [address] [place] [phone] Kami Meneses MD [address], [address] [address] documented as of this encounter Visit Diagnoses Not on filedocumented in this encounter Care Teams Dovetail Machine Operator Relationship Specialty Start Date End Date Fuentes Orellana MD [address] [facility] [place] [address] PCP - General Family Medicine 07/06/15 Brent Dickinson DO [address] [facility] [place] [address] Gastroenterology 06/27/16 Faviola Jiménez, NUMERICAL CONTROL NESTING OPERATOR, SALVAGE INSPECTOR WOOD PARTS [address] [address] Nurse Practitioner Advanced Practice Nurse 07/22/16 Shawnee Mckinney MD [address] [facility] [address] [place] [address] Urologist Urology 06/07/19 Chicho Clayton MD [address] [facility] 7 [place] [address] Oncology 06/13/19 Lai Lambert APRN, SALVAGE INSPECTOR WOOD PARTS [address] [place] [address] Nurse Practitioner Advanced Practice Nurse 02/10/23 Kami Meneses MD #[address] [address] Consulting Physician Urology 06/16/23 Anette Bond MD #[address] [place] [address] Consulting Physician Gastroenterology 12/25/22 Kay Gordon APRN, SALVAGE INSPECTOR WOOD PARTS [address] [place] [address] Nurse Practitioner Advanced Practice Nurse 06/16/24 Kami Meneses MD #2 [facility], [address] [address] Consulting Physician Urology 08/19/24 documented as of this encounter
[2024-12-17 16:56] VITALS: BP 167/46; PULSE 81; RESP 16; TEMP 36.2; O2SAT 100
--- NOTE | 2024-12-17 17:30 | ED_ITS ---
HPI - General Adult General Chief complaint: Urogenital-Male <Ari Rao MD - Last Filed: 12/17/24 18:06> Stated complaint: Bladder implant activated yesterday-pain <Ari Rao MD - Last Filed: 12/17/24 18:06> Time Seen by Provider: 12/17/24 16:56 <Ari Rao MD - Last Filed: 12/17/24 18:06> History of Present Illness HPI narrative: Patient is a 74-year-old gentleman who presents emergency department with chief complaint of pelvic pain and scrotal pain patient reports that he had a artificial urethral sphincter implanted at [facility] Very bad wrist and reports that the device was just activated this week the patient states he has pain in his rectal area patient reports no redness denies drainage from the incision sites patient reports no fever <Ari Rao MD - Last Filed: 12/17/24 18:06> Related Data Home medications: Home Medications ?Medication ?Instructions ?Recorded ?Confirmed ?Last Taken ?Type nitroglycerin 0.3 mg sublingual 0.3 mg sublingual PRN PRN Chest 12/05/21 12/16/24 Unknown History tablet Pain ticagrelor 60 mg tablet (Brilinta) 60 mg PO BID 12/05/21 12/16/24 03/14/22 23:13 History aspirin 81 mg tablet,delayed 81 mg PO DAILY 12/06/21 12/16/24 03/14/22 09:00 History release (Adult Aspirin Regimen) chlorthalidone 25 mg tablet 25 mg PO DAILY 04/16/23 12/16/24 Unknown History rosuvastatin 40 mg tablet 40 mg PO DAILY 10/13/23 12/16/24 Unknown History telmisartan 80 mg tablet 80 mg PO DAILY 06/08/24 12/16/24 Unknown History amlodipine 5 mg tablet 5 mg PO DAILY 09/29/24 12/16/24 Unknown History metoprolol tartrate 25 mg tablet 25 mg PO Q12H 12/16/24 12/16/24 Unknown History vit B3 20 mg-B5 5 mg-B6 2 mg-B7 75 1 tablet PO DAILY 12/16/24 12/16/24 Unknown History [id number]-[id number]-P22-inosit-C chew tablet <Ari Rao MD - Last Filed: 12/17/24 18:06> Allergies/adverse reactions: Allergies Allergy/AdvReac Type Severity Reaction Status Date / Time dapagliflozin (From Farxiga) AdvReac Severe Hallucinati Verified 12/16/24 13:08 ng metformin AdvReac Severe Diarrhea Verified 12/16/24 13:08 semaglutide (From Ozempic) AdvReac Intermediate Confusion Verified 12/16/24 13:08 <Ari Rao MD - Last Filed: 12/17/24 18:06> Review of Systems 2 Review of Systems: A 10 system review of systems was completed on the patient and is negative except for what is stated in the HPI. Nursing and ancillary documentation was reviewed. <Ari Rao MD - Last Filed: 12/17/24 18:06> [facility] Past Medical History Medical History: Medical History Hypertension Anxiety SOB (shortness of breath) Hyponatremia Cerebrovascular disease Diabetic polyneuropathy Lumbar spine pain BMI 27.0-27.9,adult Chronic pain Spasmodic bladder Trochanteric bursitis, left hip Trochanteric bursitis, right hip Heart disease History of prostate cancer Arthritis History of blood clots Carpal tunnel syndrome on both sides Overweight BMI 26.0-26.9,adult Microscopic colitis Dysphagia BMI 26.0-26.9,adult BMI between 19-24,adult Right shoulder pain Left shoulder pain BMI 25.0-25.9,adult 1st MTP arthritis Depression High cholesterol Shortness of breath Wears glasses Light headedness Chills Fever Colonoscopy planned BMI 25.0-25.9,adult GERD (gastroesophageal reflux disease) HLD (hyperlipidemia) HTN (hypertension) Collagenous colitis Adenomatous colon polyp Tendinitis of both rotator cuffs Groin discomfort CAD (coronary artery disease) Carotid stenosis, asymptomatic h/o intracranial cerebral stenosis, evaluated at [place] 05/2019, thought not to be symptomatic cont med tx. Glaucoma Personal history of DVT (deep vein thrombosis) Stenosis of infrarenal abdominal aorta due to arteriosclerosis Says his aorta is mildly enlarged Gout (~08/2019) Prostate cancer Anemia Type 2 diabetes mellitus without complications <Ari Rao MD - Last Filed: 12/17/24 18:06> Surgical History Surgical History: Surgical History Hx of endarterectomy H/O carotid endarterectomy (~10/2022) History of rotator cuff surgery History of angioplasty History of cataract surgery History of colonoscopy 2020 S/P arthroscopic surgery of left knee H/O rectal polypectomy H/O cystoscopy History of prostatectomy Had prostate cancer, status post prostatectomy and later radiation therapy. Has an implanted device to help with urinary incontinence. H/O cardiac catheterization H/O heart artery stent <Ari Rao MD - Last Filed: 12/17/24 18:06> Family History Family History: Family History Father , of lung cancer age 83 Hypertension Lung cancer Sibling Hypertension Mother Family history of malignant neoplasm of breast in first degree relative Breast cancer of breast cancer age 37 Sibling No problems noted. Other Diabetes mellitus Family history of cardiovascular disease Family history of elevated blood lipids Family history of malignant neoplasm <Ari Rao MD - Last Filed: 12/17/24 18:06> Social History Social History: Social History Social History: The patient has 2 sons and is . 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 Wishes to be a full code. 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 Smoking packs per day: 1 Smoking cigarettes per day: 20.0 Years smoked: 20 Smoking pack-years: 20.00 Smoking status: Former smoker Tobacco type: cigarettes Second hand tobacco smoke exposure: No Smoking end date: 08/31/84 Alcohol intake: current Drinks per week: 21 Alcohol use details: 2-3 per day beer Substance use: never Substance use type: does not use Other substance usage details: None in a year Do You Feel Safe in your Home?: Yes Lack of Transportation: No Lack of Food: Never True Current Housing: I Have Housing Concerned About Future Housing: No Difficulty Paying Gas/Electric Bills: No Difficulty Paying for Meds: No Currently Unemployed: No Education: Trade/Vocational Certificate Difficulty w/ Childcare or Family Care: No Living arrangements: alone Occupation/Education: retired Additional occupation/education comments: 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 He works at the 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 Gender identity (if verbalized by the patient): Male Spiritual care concerns: No Agree to blood products: Yes <Ari Rao MD - Last Filed: 12/17/24 18:06> Exam 2 Narrative: GENERAL: Well-appearing, well-nourished, and in no acute distress. HEAD: Normocephalic, atraumatic. EYES: PERRLA and EOMI. ENT: Nares clear, no rhinorrhea or epistaxis. Mucous membranes moist. NECK: Supple. CHEST: Clear to auscultation. No respiratory distress. HEART: Regular rate and rhythm. No murmur heard. Normal peripheral pulses. ABDOMEN: Soft, nontender, nondistended, normal active bowel sounds. : There is no erythema no tenderness in the scrotum there is no redness in the perineal body area EXTREMITIES: Normal range of motion. No edema. SKIN: Warm, dry, no rash. NEURO: No focal deficits. Alert and oriented x3. PSYCH: Normal mood and affect. <Ari Rao MD - Last Filed: 12/17/24 18:06> Course Vital Signs Vital signs: Vital Signs Temperature 97.2 F L 12/17/24 16:56 Pulse Rate 81 12/17/24 16:56 Respiratory Rate 16 12/17/24 16:56 Blood Pressure 167/46 H 12/17/24 16:56 Pulse Oximetry 100 12/17/24 16:56 Temperature 97.9 F 12/17/24 18:04 Pulse Rate 78 12/17/24 18:04 Respiratory Rate 16 12/17/24 18:04 Blood Pressure 157/45 H 12/17/24 18:04 Pulse Oximetry 100 12/17/24 18:04 <Ari Rao MD - Last Filed: 12/17/24 18:06> Vital Signs Temperature 97.2 F L 12/17/24 16:56 Pulse Rate 81 12/17/24 16:56 Respiratory Rate 16 12/17/24 16:56 Blood Pressure 167/46 H 12/17/24 16:56 Pulse Oximetry 100 12/17/24 16:56 Temperature 97.9 F 12/17/24 18:04 Pulse Rate 78 12/17/24 18:04 Respiratory Rate 16 12/17/24 18:04 Blood Pressure 157/45 H 12/17/24 18:04 Pulse Oximetry 100 12/17/24 18:04 <Gricelda Mcdaniels MD - Last Filed: 12/17/24 20:02> Medical Decision Making MDM Narrative Medical decision making narrative: Differential includes postoperative infection, UTI, urinary retention Patient was not retaining urine after draining his bladder Urinalysis obtained blood work has been obtained and disease patient's location of pain CT scan was obtained T evaluate the status of the implants <Ari Rao MD - Last Filed: 12/17/24 18:06> Differential includes postoperative infection, UTI, urinary retention Patient was not retaining urine after draining his bladder. Urinalysis obtained blood work has been obtained and disease patient's location of pain CT scan was obtained T evaluate the status of the implants. Enedelia: Patient was signed out to me by Dr. Rao pending CT abdomen pelvis with IV contrast. CT was obtained and independently interpreted by me revealing: IMPRESSION: 1. No evidence of appendicitis, diverticulitis or intestinal obstruction. 2. Narrowing of the aorta just distal to the renal arteries. Further evaluation advised. 3. Small sliding hiatus hernia. Patient was informed of these findings at bedside. Patient was informed that his penile/urethral implant appears to be well. Urogenital examination was performed at this time and incision sites appear to be well healed, no surrounding erythema or any evidence of cellulitis. Patient is aware of his atherosclerotic disease and states that his vascular doctor wanted to do some surgery last time but he decided to put off until February. He has an upcoming appointment with him in February for additional workup. Differential diagnosis considerations include issues with patient's urethral implant, urinary tract infection, cystitis. Comorbidities impacting this visit include recent penile urethral implant. I have evaluated and discussed social determinants of health with the patient that could potentially impact subsequent diagnosis and treatment plans. On repeat assessment of the patient, reevaluation revealed that the patient is doing well and is in no acute distress. Patient symptoms have improved since she arrived to our emergency department. Repeat vital signs were all reviewed and noted to be stable. Differential diagnosis and treatment plan were discussed with the patient at bedside. Patient agrees with discussion and after shared medical decision making agrees with discharge. All questions were answered to the patient's satisfaction. Patient will follow up with his Urologist in 3-5 days. A script for cephalexin was sent to patient's pharmacy to take as prescribed for his urinary tract infection. Patient was provided with strict return precautions and instructed to return to the emergency department if any new or worsening symptoms develop. The patient was discharged in stable condition. <Gricelda Mcdaniels MD - Last Filed: 12/17/24 20:02> Vital Signs Vital Signs: Vital Signs Temperature 97.2 F L 12/17/24 16:56 Pulse Rate 81 12/17/24 16:56 Respiratory Rate 16 12/17/24 16:56 Blood Pressure 167/46 H 12/17/24 16:56 Pulse Oximetry 100 12/17/24 16:56 Temperature 97.9 F 12/17/24 18:04 Pulse Rate 78 12/17/24 18:04 Respiratory Rate 16 12/17/24 18:04 Blood Pressure 157/45 H 12/17/24 18:04 Pulse Oximetry 100 12/17/24 18:04 <Ari Rao MD - Last Filed: 12/17/24 18:06> Vital Signs Temperature 97.2 F L 12/17/24 16:56 Pulse Rate 81 12/17/24 16:56 Respiratory Rate 16 12/17/24 16:56 Blood Pressure 167/46 H 12/17/24 16:56 Pulse Oximetry 100 12/17/24 16:56 Temperature 97.9 F 12/17/24 18:04 Pulse Rate 78 12/17/24 18:04 Respiratory Rate 16 12/17/24 18:04 Blood Pressure 157/45 H 12/17/24 18:04 Pulse Oximetry 100 12/17/24 18:04 <Gricelda Mcdaniels MD - Last Filed: 12/17/24 20:02> Lab Data Result diagrams: 12/17/24 17:52 12/17/24 17:53 <Ari Rao MD - Last Filed: 12/17/24 18:06> Labs: Lab Results 12/17/24 12/17/24 12/17/24 Range/Units 17:09 17:52 17:53 WBC 7.8 (4.5-10.0) K/mm3 RBC 3.47 L (4.6-6.20) M/mm3 Hgb 10.6 L (14.0-18.0) g/dL Hct 32.8 L (42.0-52.0) % MCV 94.5 (80-100) fl MCH 30.5 (26-34) pg MCHC 32.3 (32-36) g/dl RDW 14.7 H (11.5-14.5) % Plt Count 169 (150-375) k/mm3 MPV 10.6 H (7.4-10.4) fl Immature Gran % (Auto) 0.6 H (0-0.5) % Neut % (Auto) 71.5 (45.5-73.1) % Lymph % (Auto) 19.5 (18.3-44.2) % Parke % (Auto) 6.6 (2.6-8.5) % Eos % (Auto) 1.3 (0-4.4) % Baso % (Auto) 0.5 (0.2-1.2) % Lymph # (Auto) 1.53 (0.9-3.2) K/mm3 Parke # (Auto) 0.5 (0.1-0.6) K/mm3 Eos # (Auto) 0.1 (0-0.3) K/mm3 Baso # (Auto) 0.0 (0.0-0.1) K/mm3 Abs Immat Gran (auto) 0.05 H (0.00-0.031) K/mm3 Absolute Neuts (auto) 5.6 (1.3-6.7) K/mm3 Absolute Nucleated RBC 0.000 (0.0-0.012) K/mm3 Nucleated RBC % 0.0 (0.0-0.2) % Sodium 139 (137-145) mmol/L Potassium 4.0 (3.4-5.0) mmol/L Chloride 107 (98-107) mmol/L Carbon Dioxide 23 (22-30) mmol/L Anion Gap 9 (4-12) mmol/L BUN 38 H (9-20) mg/dL Creatinine 1.68 H (0.7-1.3) mg/dL Estim Creat Clear Calc 29 ml/min Estimated GFR 40 L (59 - ) Glucose 188 H (65-110) mg/dL Calcium 10.4 H (8.4-10.2) mg/dL Total Bilirubin 0.4 (0.2-1.3) mg/dL AST 29 (17-59) U/L ALT 22 (6-50) U/L Alkaline Phosphatase 78 (38-126) U/L Total Protein 7.0 (6.3-8.2) g/dL Albumin 4.0 (3.5-5.1) g/dL Urine Color Yellow (Yellow) Urine Appearance Clear (Clear) Urine pH 5.0 (5.0-9.0) Ur Specific Morley 1.020 (1.001-1.035) Urine Protein 1+ H (Negative) mg/dL Urine Glucose (UA) Negative (Negative) mg/dL Urine Ketones Negative (Negative) mg/dL Ur Blood (Man) Trace (Negative) Urine Nitrate Negative (Negative) Urine Bilirubin Negative (Negative) Urine Urobilinogen 0.2 (<2.0) mg/dL Add Ur Microanalysis Reviewed Leukocyte Esterase Rfl Trace H (Negative) CYNTHIA/UL Urine RBC 0-2 (0-2) /hpf Urine WBC 11-20 H (0-3) /hpf Ur Squamous Epith Cells Occasional (Few) /hpf Ur Renal Epithelial Cell Few H (None Seen) /hpf Urine Bacteria None seen /hpf Urine Casts 11-20 Hyaline Casts Present (None) /lpf <Ari Rao MD - Last Filed: 12/17/24 18:06> Lab Results 12/17/24 12/17/24 12/17/24 Range/Units 17:09 17:52 17:53 WBC 7.8 (4.5-10.0) K/mm3 RBC 3.47 L (4.6-6.20) M/mm3 Hgb 10.6 L (14.0-18.0) g/dL Hct 32.8 L (42.0-52.0) % MCV 94.5 (80-100) fl MCH 30.5 (26-34) pg MCHC 32.3 (32-36) g/dl RDW 14.7 H (11.5-14.5) % Plt Count 169 (150-375) k/mm3 MPV 10.6 H (7.4-10.4) fl Immature Gran % (Auto) 0.6 H (0-0.5) % Neut % (Auto) 71.5 (45.5-73.1) % Lymph % (Auto) 19.5 (18.3-44.2) % Parke % (Auto) 6.6 (2.6-8.5) % Eos % (Auto) 1.3 (0-4.4) % Baso % (Auto) 0.5 (0.2-1.2) % Lymph # (Auto) 1.53 (0.9-3.2) K/mm3 Parke # (Auto) 0.5 (0.1-0.6) K/mm3 Eos # (Auto) 0.1 (0-0.3) K/mm3 Baso # (Auto) 0.0 (0.0-0.1) K/mm3 Abs Immat Gran (auto) 0.05 H (0.00-0.031) K/mm3 Absolute Neuts (auto) 5.6 (1.3-6.7) K/mm3 Absolute Nucleated RBC 0.000 (0.0-0.012) K/mm3 Nucleated RBC % 0.0 (0.0-0.2) % Sodium 139 (137-145) mmol/L Potassium 4.0 (3.4-5.0) mmol/L Chloride 107 (98-107) mmol/L Carbon Dioxide 23 (22-30) mmol/L Anion Gap 9 (4-12) mmol/L BUN 38 H (9-20) mg/dL Creatinine 1.68 H (0.7-1.3) mg/dL Estim Creat Clear Calc 29 ml/min Estimated GFR 40 L (59 - ) Glucose 188 H (65-110) mg/dL Calcium 10.4 H (8.4-10.2) mg/dL Total Bilirubin 0.4 (0.2-1.3) mg/dL AST 29 (17-59) U/L ALT 22 (6-50) U/L Alkaline Phosphatase 78 (38-126) U/L Total Protein 7.0 (6.3-8.2) g/dL Albumin 4.0 (3.5-5.1) g/dL Urine Color Yellow (Yellow) Urine Appearance Clear (Clear) Urine pH 5.0 (5.0-9.0) Ur Specific Morley 1.020 (1.001-1.035) Urine Protein 1+ H (Negative) mg/dL Urine Glucose (UA) Negative (Negative) mg/dL Urine Ketones Negative (Negative) mg/dL Ur Blood (Man) Trace (Negative) Urine Nitrate Negative (Negative) Urine Bilirubin Negative (Negative) Urine Urobilinogen 0.2 (<2.0) mg/dL Add Ur Microanalysis Reviewed Leukocyte Esterase Rfl Trace H (Negative) CYNTHIA/UL Urine RBC 0-2 (0-2) /hpf Urine WBC 11-20 H (0-3) /hpf Ur Squamous Epith Cells Occasional (Few) /hpf Ur Renal Epithelial Cell Few H (None Seen) /hpf Urine Bacteria None seen /hpf Urine Casts 11-20 Hyaline Casts Present (None) /lpf <Gricelda Mcdaniels MD - Last Filed: 12/17/24 20:02> Discharge Plan Discharge Clinical Impression: Cystitis, Abdominal pain, lower <Ari Rao MD - Last Filed: 12/17/24 18:06> Patient Disposition: Home <Ari Rao MD - Last Filed: 12/17/24 18:06> Condition: Improved <Ari Rao MD - Last Filed: 12/17/24 18:06> Instructions: Antibiotic Form, Urinary Tract Infection in Men (ED), Abdominal Pain (ED) <Ari Rao MD - Last Filed: 12/17/24 18:06> Additional Instructions: Please follow-up with urologist within the next 3-5 days. Return emergency room if any new or worsening symptoms develop. Take the prescribed antibiotic as instructed for urinary tract infection. <Ari Rao MD - Last Filed: 12/17/24 18:06> Patient Language: Spanish <Ari Rao MD - Last Filed: 12/17/24 18:06> Prescriptions: New cephalexin 500 mg capsule 500 mg PO Q6H 7 Days Qty: 28 0RF No Action nitroglycerin 0.3 mg tablet, sublingual 0.3 mg sublingual PRN PRN (Reason: Chest Pain) Brilinta 60 mg tablet 60 mg PO BID Patient Comments: HOLD 5 days prior to surgery chlorthalidone 25 mg tablet 25 mg PO DAILY telmisartan 80 mg tablet 80 mg PO DAILY rosuvastatin 40 mg tablet 40 mg PO DAILY Kerendia 10 mg tablet 10 mg PO DAILY Qty: 30 7RF aspirin [Adult Aspirin Regimen] 81 mg tablet,delayed release (DR/EC) 81 mg PO DAILY linagliptin 5 mg tablet 5 mg PO QAM Qty: 90 2RF (DME) Accu-Chek Aaliyah Plus test strp Strip See Rx Instructions .Route Qty: 400 1RF Rx Instructions: Check blood sugar 4 times daily (DME) lancets [E-Z Ject Lancets] 33 gauge misc See Rx Instructions .Route Qty: 400 12RF Rx Instructions: three times daily glimepiride 1 mg tablet 1 mg PO BID Qty: 180 1RF Rx Instructions: 1 mg before breakfast and 1 mg before supper Gvoke HypoPen 2-Pack 1 mg/0.2 mL auto-injector 1 mg subcut ONCE Qty: 0.4 0RF Rx Instructions: as a single dose; may repeat once after 15 minutes if no response amlodipine 5 mg tablet 5 mg PO DAILY [id number]-P8-urhkg-X87-inosit-C 20 mg-5 mg- 2 mg-75 mcg tablet,chewable 1 tablet PO DAILY metoprolol tartrate 25 mg Tablet 25 mg PO Q12H pantoprazole 40 mg tablet,delayed release (DR/EC) 40 mg PO DAILY Qty: 90 1RF alendronate [Fosamax] 70 mg tablet 70 mg PO WEEKLY Qty: 4 2RF alprazolam 0.5 mg tablet 0.5 mg PO TID PRN (Reason: Anxiety) Qty: 20 0RF allopurinol 300 mg tablet 300 mg PO DAILY Qty: 90 1RF <Ari Rao MD - Last Filed: 12/17/24 18:06> Follow-up/Referrals: Fuentes Orellana MD [Primary Care Provider] - 3 Days <Ari Rao MD - Last Filed: 12/17/24 18:06> Time of Disposition: 19:59 <Ari Rao MD - Last Filed: 12/17/24 18:06> 19:59 <Gricelda Mcdaniels MD - Last Filed: 12/17/24 20:02>
--- OUTSIDE RECORDS SUMMARY | 2024-12-17 17:31 | XMS_ITS | Encounter Summary ---
Author Organization [facility] Address [address] [place] [address] Phone Care Team Providers Care Etiquette Teacher Name Role Phone Fuentes Orellana MD Primary Care Provider [phone] Bernt Dickinson DO Unavailable [phone] Faviola Jiménez INSURANCE VERIFY REP, CAM MILLING MACHINE OPERATOR Unavailable Shawnee Mckinney MD Unavailable Chicho Clayton MD Unavailable Lai Lambert INSURANCE VERIFY REP, CAM MILLING MACHINE OPERATOR Unavailable [phone] Kami Meneses MD Unavailable [phone] Anette Bond MD Unavailable [phone] Kay Gordon INSURANCE VERIFY REP, CAM MILLING MACHINE OPERATOR Unavailable Kami Meneses MD Unavailable [phone] Reason for Visit * Reason Comments Follow-up Encounter Details Date Type Department Care Team (Late st Contact Info) Description 12/16/2024 10:45 AM CDT Office Visit [facility] [address] [place] [address] Kami Meneess MD [address] [address] Stress incontinence (female) (male) (Primary Dx) Discharge [...] 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 Not on file Not on file Not [...] 01/27/2025 9:45 AM CDT Office Visit [facility] [address] [place] [address] Kami Meneses MD [address] [address] documented as of this encounter Visit Diagnoses Diagnosis Stress incontinence (female) (male)- Primary documented in this encounter Care Teams Etiquette Teacher Relationship Specialty Start Date End Date Fuentes Orellana MD [address] [place] [id number] PCP - General Family Medicine 07/06/15 Brent Dickinson [place] [address] [address] Gastroenterology 06/27/16 Faviola Jiménez, INSURANCE VERIFY REP, CAM MILLING MACHINE OPERATOR [address] [place] [address] Nurse Practitioner Advanced Practice Nurse 07/22/16 Shawnee Mckinney MD [address] [facility] [address] [place] [address] Urologist Urology 06/07/19 Chicho Clayton MD [address] [facility] [address] [place] [address] Oncology 06/13/19 Lai Lambert APRN, CAM MILLING MACHINE OPERATOR [address] [place] [address] Nurse Practitioner Advanced Practice Nurse 02/10/23 Kami Meneses MD [address] [address] Consulting Physician Urology 06/16/23 Anette Bond MD [address] [place] [address] Consulting Physician Gastroenterology 12/25/22 Kay Gordon APRN, CAM MILLING MACHINE OPERATOR [address] [place] [address] Nurse Practitioner Advanced Practice Nurse 06/16/24 Kami Meneses MD [address] [address] Consulting Physician Urology 08/19/24 documented as of this encounter
--- OUTSIDE RECORDS SUMMARY | 2024-12-17 17:31 | XMS_ITS | Referral Summary ---
Author Organization [facility] [address] [facility] [address] Address [address] [place] [address] Care Team Providers Care Acquisition Associate Name Role Phone Fuentes Orellana MD Primary Care Provider [phone] Itz Iyer MD Unavailable [phone] Shawnee Mckinney MD Unavailable [phone] Chicho Clayton MD Unavailable Maria Guadalupe Palacios RN Unavailable Unava ilable Lupillo Davenport MD Unavailable [phone] Danis Meza CERAM[facility] TILER Unavailable Antonette Owens NP Unavailable Aniceto Foley MD Unavailable [phone] Encounters Date Type Department Care Team Description 12/09/2024 1:00 PM CDT Office Visit [facility] Medical Group Cardiology [address] [place] [address] Kay Ward NP Coronary artery disease of [place] artery of [place] heart with stable angina pectoris (Primary Dx); Orthostatic hypotension; LVH (left ventricular hypertrophy); PVD (peripheral vascular disease); Preoperative cardiovascular examination 11/09/2024 5:14 AM CDT - 11/12/2024 2:30 PM CDT Hospital Encounter [address] [place] [address] Kami Meneses MD Intrinsic urethral sphincter deficiency (Primary Dx) Discharge Disposition: Discharge to home, home health skilled care 11/10/2024 Telephone [facility] Home Care Services [address] [facility] [address] [place] [address] Katty Bundyee 11/09/2024 7:30 AM CDT - 11/09/2024 10:00 AM CDT Surgery [facility] Operating Room [address] [place] [phone] Kami Meneses MD Cystoscopy 11/09/2024 7:30 AM CDT Anesthesia Event [facility] Operating Room [address] [place] [phone] Lai Gregg DO [place], Justin Kyle, CRNA 10/26/2024 12:45 PM LAND APPRAISER Pre-Admission Testing [facility] Pre Anesthesia Testing [address] [place] [phone] Stress incontinence 10/20/2024 10:30 AM LAND APPRAISER Office Visit [facility] Medical [facility] Cardiology [address] [facility] [address] [place] [phone] Kay Ward NP Coronary artery disease of [place] artery of [place] heart with stable angina pectoris (Primary Dx); Preoperative cardiovascular examination; Orthostatic hypotension; LVH (left ventricular hypertrophy); PVD (peripheral vascular disease) 10/13/2024 Telephone [facility] Cardiology [address] [place] [address] [address] [place] [phone] Mariangel Palmer MD cardiac clearance 09/27/2024 11:00 AM LAND APPRAISER Lab [facility] Cancer [place] - Lab Collection [address] [facility] [address] 6 [place] [address] Prostate cancer (HCC) 09/27/2024 11:45 AM LAND APPRAISER Office Visit [facility] [address] [facility] [address] 5 [place] [address] Chicho Clayton MD Prostate cancer (HCC) (Primary Dx) 09/27/2024 10:45 AM LAND APPRAISER Lab [facility] Lab [address] [facility] [address] 6 [place] [address] Prostate cancer (HCC) from Last 3 Months [...] immediate release tabletIndicatio ns:Coronary artery disease involving [place] coronary artery of [place] heart without angina pectoris Take 1 tablet [...] (10/21/2022): Added automatically from request for surgery [id number] Assessment & Plan (10/30/2022 2:56 PM LAND APPRAISER): - OR 3/2 for planned R CEA - OU status, Q2h NV/VS monitoring - Bedrest today, OOB/PT POD #1 - SBP goal 100-160, nicardipine for elevated BP - Continue aspirin and statin - Plan to stager home medications and resume overnight Atherosclerosis of [place] ar teries of extremities with intermittent claudication, bilateral legs 06/03/2022 Melanoma 01/10/2021 Anxiety 01/10/2021 DM (diabetes mellitus) 01/10/2021 Assessment & Plan (10/30/2022 9:59 AM LAND APPRAISER): - A1c 7.6% 10/2022 - SSI while inpatient - CC diet when eating Elevated left ventricular end-diastolic pressure (LVEDP) 11/15/2019 Encounter for surgical after care following surgery of circulatory system 05/20/2019 Prostate cancer 09/10/2018 Assessment & Plan (10/27/2018 9:53 AM LAND APPRAISER): Follows with urology, has his PSA monitored it is increasing, but still WNL 1.4 Assessment & Plan (09/22/2018 11:35 AM LAND APPRAISER): Has close follow up with his oncologist. His PSA was slightly elevated on last check. Hyperlipidemia 09/21/2017 Assessment & Plan (06/30/2018 9:38 AM CDT): His last lipid panel was within acceptable range; he will continue on a high intensity statin. Assessment & Plan (09/21/2017 11:34 AM LAND APPRAISER): Continue Lipitor 40 mg daily. Essential hypertension 07/20/2017 Assessment & Plan (10/30/2022 2:57 PM LAND APPRAISER): - Tight BP goals post-procedure - Continue home medications as indicated by BP goals as above, staggering overnight for gentle BP control Assessment & Plan (10/27/2018 9:54 AM LAND APPRAISER): Hypertension is unchanged. Dietary sodium restriction. Blood pressure will be reassessed in 4 weeks. Assessment & Plan (09/22/2018 11:38 AM LAND APPRAISER): Hypertension remains elevated. He is increasing his [...] today Assessment & Plan (09/21/2017 11:33 AM LAND APPRAISER): Blood pressure is well controlled today. Last visit we added HCTZ 12.5 mg daily. Continue current medications Assessment & Plan (08/10/2017 11:26 AM LAND APPRAISER): Blood pressure is not controlled. Add hydrochlorothiazide 12.5 mg p.o. daily. He is compliant with medications but always add salt to food which I advised him not to do that. Assessment & Plan (07/20/2017 9:19 AM LAND APPRAISER): Blood pressure remains uncontrolled. We will order renal Doppler ultrasound to rule out renal artery stenosis given the fact that he has peripheral vascular disease and coronary artery disease. I will increase amlodipine from 5-10 mg p.o. daily. If that does not control the blood pressure we will add hydrochlorothiazide 12.5 mg p.o. Daily. Coronary artery disease invo lving un[place] coronary artery of [place] heart without angina pectoris 07/20/2017 Assessment & Plan (10/30/2022 9:58 AM LAND APPRAISER): - Continue home medications as able - Maintained on Brilinta as an outpatient; held 1 week prior to OR - Will discuss with surgery team when to safely resume post-procedure Assessment & Plan (10/27/2018 9:59 AM LAND APPRAISER): Coronary artery disease is improving with lifestyle modifications. Continue current treatment regimen. Cardiac status will be reassessed in 3 months. No chest pain. Minimal SOB. Continue asa, statin, brilinta Assessment & Plan (09/22/2018 11:36 AM LAND APPRAISER): Coronary artery disease is unchanged. Regular aerobic [...] BB. Assessment & Plan (09/21/2017 11:33 AM LAND APPRAISER): Continue aspirin, Brilinta, Toprol XL and atorvastatin. Assessment & Plan (08/10/2017 11:27 AM LAND APPRAISER): Continue Brilinta and aspirin. Asymptomatic. Assessment & Plan (07/20/2017 9:19 AM LAND APPRAISER): Continue aspirin, Brilinta, Lipitor , metoprolol PVD (peripheral vascular disease) 07/20/2017 Assessment & Plan (10/27/2018 9:21 AM LAND APPRAISER): S/P bilateral ALVA angioplasty; right EIA angioplasty/stent 11/21/14. S/P aortoiliac angioplasty/stent 05/28/09. Continues on asa, statin and brilinta Assessment & Plan (09/21/2017 11:34 AM LAND APPRAISER): He follows up with [facility] Assessment & Plan (08/10/2017 11:27 AM LAND APPRAISER): Renal ultrasound suggest more than 60% stenosis in the right renal artery and infrarenal stenosis 50-70%. He follows up with Dr. Foley from vascular surgery at [facility] Assessment & Plan (07/20/2017 9:20 AM LAND APPRAISER): Patient will follow up with Dr. Foley from vascular surgery. He does have some claudication when he walks. Intrinsic urethral sphincter deficiency 06/08/20 15 Resolved Problems Problem Noted Date Diagnosed Date Resolved Date Dizzinesses 10/27/2018 02/09/2019 Assessment & Plan (10/27/2018 10:17 AM LAND APPRAISER): Persistent dizziness. Has stopped caffeine intake. Has [...] implant or graft 6 02/09/2019 Atherosclerosis of [place] artery of extremity 04/15/20 16 02/09/2019 Assessment & Plan (09/22/2018 11:26 AM LAND APPRAISER): 80% circumflex s/p RICHARD. Moderate 30 % LAD with bridging Impotence of organic origin 09/18/2015 02/09/2019 Urinary tract infection 01/18/201501/29 Incontinence 01/18/2015 02/09/2019 Stricture, urethra 07/31/2011 9 Overview (12/10/2017): Description: Dilation 06/09/11 Nocturia 11/28/2010 02/09/2019 Hypertension 05/16/2009 02/09/2019 Assessment & Plan (10/27/2018 10:11 AM LAND APPRAISER): Hypertension is {improving/stable/worsenin}. {plan; hypertension for POC:[id number]} Blood pressure will be reassessed {plan; follow-up 2 weeks/4weeks/3months:[id number]}. Increase amolodipine to 10 mg Continue all [...] drink = 0.6 oz pu re alcohol) [facility] Utilities Answer Date Recorded In the past [...] often do you attend chur ch or presybeterian services? More than 4 times per year 11/11/2024 Do you belong to any clubs o r organizations such as orthodoxy groups, unions, fraternal or athletic groups, or [...] any time in the past 12 m [facility], were you homeless or living in a retirement (including now)? No 11/11/2024 Personal Safety Answer Date Recorded Have you ever been in or are you currently in a harmful physical or emotional relationship or is someone making you feel afraid or unsafe? Denies 11/09/2024 Sex and Gender Information Value Date Recorded Sex Assigned at Not on file Legal Sex Male 12:32 AM LAND APPRAISER Gender Identity Not on file Sexual Orientation [...] on file Medical Devices Implanted Type Area Grease Press Helper Device Identifier Shelf Expiration Date Model / [...] 61 to 70 cm pressure-regulating balloon. [place] [employer] Vascu-Guard 8x.8cm Peripheral Patch Vascular Bovine Pericardium Vg-[id number] - [id number] Implanted:Qty: 1 on 10/30/2022 by Aniceto Foley MD at [facility] Right: Carotid [employer] Sandra [id number] 07/09/2023 [id number]-[id number] / / [id number] [employer] Sandra Ams 800 Kit Accessory Sterile Disposable Latex Free Urinary [id number] - [id number] Implanted:Qty: 1 on 11/09/2024 by Kami Meneses MD at [facility] N/A: Urethra [employer] Sandra [id number] 03/09/2029 [id number] / / [id number] [employer] Sandra Cuff Urethral Ams 800 Inhibizone 3.5cm [id number] - [id number] Implanted:Qty: 1 on 11/09/2024 by Kami Meneses MD at [facility] N/A: Urethra [employer] Sandra [id number] 02/22/2026 [id number] / / [id number] [employer] Sandra Ams 800 Pressure Balloon Sphincter 61-70cu Cm Implant Urological [id number] - [id number] Implanted:Qty: 1 on 11/09/2024 by Kami Meneses MD at [facility] N/A: Abdomen [employer] Sandra [id number] 03/20/2029 [id number] / / [id number] [employer] Sandra Ams 800 Control Pump Sphincter Implant Urological Inhibizone [id number] - [id number] Implanted:Qty: 1 on 11/09/2024 by Kami Meneses MD at [facility] N/A: Scrotum [employer] Sandra [id number] 02/15/2026 [id number] / / [id number] Procedures Procedure Name Priority Date/Time Associated Diagnosis [...] DEVICE Routine 11/09/2024 9 :20 AM CDT UT AN PROCEDURE PLACEHOLDER Routine 11/09/2024 7:54 AM CDT UT AN ELECTIVE ENDOTRACHEAL AIRWAY Routine 11/09/2024 7:54 AM CDT ARTIFICIAL URINARY SPHINCTER 11/09/2024 7:32 AM CDT Stress incontinence CYSTOSCOPY 11/09/2024 7:32 AM CDT Stress incontinence POCT GLUCOSE DEVICE Routine 11/09/2024 6 :43 AM CDT URINALYSIS, MICROSCOPIC ONLY Routine 10/26/2024 1:43 PM LAND APPRAISER Stress incontinence URINALYSIS AND REFLEX TO MICROSCOPIC AND CULTURE Routine 10/26/2024 1:43 PM LAND APPRAISER Stress incontinence EGFR Routine 09/27/2024 10:40 AM LAND APPRAISER Prostate cancer (HCC) DIFFERENTIAL AUTO Routine 09/27/2024 10: 40 AM LAND APPRAISER Prostate cancer (HCC) CBC WITH AUTO DIFFERENTIAL Routine 09/27/2024 10:40 AM LAND APPRAISER Prostate cancer (HCC) COMPREHENSIVE METABOLIC PANEL Routine 09/27/2024 10:40 AM LAND APPRAISER Prostate cancer (HCC) LACTATE DEHYDROGENASE Routine 09/27/2024 10:40 AM LAND APPRAISER Prostate cancer (HCC) PSA DIAGNOSTIC Routine 09/27/2024 10:40 AM LAND APPRAISER Prostate cancer (HCC) LIPID PANEL Routine 03/22/2024 10:23 AM CDT Coronary artery disease involving [place] coronary artery of [place] heart without angina pectoris CTA ABDOMINAL AORTA AND BILATERAL ILIOFEMORAL RUNOFF Schedule Routine, Read Routine (OP Routine) 12/15/2023 1:56 PM CDT PVD (peripheral vascular disease) HEMOGLOBIN A1C Routine 09/22/2023 12:19 PM LAND APPRAISER Prostate cancer (HCC) from Last 3 Months [...] ORDERABLES - DEVICE F inal Result [facility] [address] Department [place] [address] * (ABNORMAL) eGFR (11/12/2024 8:15 AM CDT) [...] NP LAB BLOOD ORDERABLES Fi nal Result [facility] [address] [place] [address] * (ABNORMAL) Basic metabolic panel (11/12/2024 8:15 AM CDT) Sodium 138 135 - 145 mmol/L Potassium, pl 4.2 3.3 - 4.9 mmol/L [facility] Chloride 106 97 - 110 mmol/L [facility] CO2 21(L) 22 - 32 mmol/L [facility] Anion gap 11 2 - 15 mmol/L [facility] BUN 28(H) 6 - 25 mg/dL [facility] Creatinine 1.26 0.80 - 1.30 mg/dL [facility] Glucose 136 70 - 199 mg/dL [facility] Comment: Interpretive Data Fasting glucose [...] 2022. Calcium 9.2 8.5 - 10.3 mg/dL [facility] Blood 11/12/2024 8:15 AM CDT 11/12/2024 9:17 AM CDT Kalinacedric Ramirez Cliff DANIEL LAB BLOOD ORDERABLES Fi nal Result Performing Organization Address [facility]/ZIP Co de Phone Number [facility] [address] [facility] [address] * POCT glucose (11/12/2024 5:49 AM CDT) [...] DEVICE F inal Result Performing Organization Address [facility] Co de Phone Number [facility] [address] [facility] [address] * (ABNORMAL) POCT glucose (11/11/2024 8:22 PM [...] DEVICE F inal Result Performing Organization Address [facility]/ZIP Co de Phone Number [facility] [address] [place] [address] * POCT glucose (11/11/2024 5:14 PM CDT) Glucose, POC 127 70 - 199 mg/dL Comment: For Glucose values <35 mg/dl when Hematocrit is >60 mg/dl,the test may not accurately detect significant hypoglycemia,and testing in the Laboratory should be considered if clinically indicated. Blood 11/11/2024 5:14 PM CDT 11/11/2024 5:14 PM CDT [facility] LAB POCT ORDERABLES - DEVICE F inal Result Performing Organization Address [facility] Co de Phone Number [facility] [address] [facility] [place] [address] * POCT glucose (11/11/2024 11:29 AM CDT) Glucose, POC 144 70 - 199 mg/dL Comment: For Glucose values <35 mg/dl when Hematocrit is >60 mg/dl,the test may not accurately detect significant hypoglycemia,and testing in the Laboratory should be considered if clinically indicated. Blood 11/11/2024 11:2 9 AM CDT 11/11/2024 11:29 AM CDT [facility] LAB POCT ORDERABLES - DEVICE F inal Result Performing Organization Address [facility] Co de Phone Number [facility] [address] [place] [address] * (ABNORMAL) eGFR (11/11/2024 7:48 AM CDT) [...] MD LAB BLOOD ORDERABLES Final Res ult [facility] [address] Department [place] [address] * Differential, auto (11/11/2024 7:48 AM CDT) Neutrophil abs 5.4 1.5 - 6.5 K/cumm Imm gran abs 0.0 0.0 - 0.1 K/cumm [facility] Lymphocyte abs 1.8 0.8 - 3.3 K/cumm [facility] Monocyte abs 0.8 0.2 - 0.8 K/cumm [facility] Eosinophil abs 0.2 0.0 - 0.5 K/cumm [facility] Basophil abs 0.0 0.0 - 0.1 K/cumm [facility] Neutrophil pct 65.8 % [facility] Comment: Interpretive Data Percent cell count reference ranges are not reported, since discordance with absolute values may lead to misinterpretation of CBC data. Current Interpretive Data was last revised on 2017. Imm gran pct 0.5 % [facility] Comment: Interpretive Data Percent cell count reference ranges are not reported, since discordance with absolute values may lead to misinterpretation of CBC data. Current Interpretive Data was last revised on 2017. Lymphocyte pct 21.7 % [facility] Comment: Interpretive Data Percent cell count reference ranges are not reported, since discordance with absolute values may lead to misinterpretation of CBC data. Current Interpretive Data was last revised on 2017. Monocyte pct 10.0 % [facility] Comment: Interpretive Data Percent cell count reference ranges are not reported, since discordance with absolute values may lead to misinterpretation of CBC data. Current Interpretive Data was last revised on 2017. Eosinophil pct 1.8 % [facility] Comment: Interpretive Data Percent cell count reference ranges are not reported, since discordance with absolute values may lead to misinterpretation of CBC data. Current Interpretive Data was last revised on 2017. Basophil pct 0.2 % [facility] Comment: Interpretive Data Percent cell count reference ranges are not reported, since discordance with absolute values may lead to misinterpretation of CBC data. Current Interpretive Data was last revised on 2017. Blood 11/11/2024 7:48 AM CDT 11/11/2024 8:16 AM CDT Kalina Coronado NP LAB BLOOD ORDERABLES Fi nal Result [facility] [address] Department [place] [address] * (ABNORMAL) CBC with auto differential (11/11/2024 7:48 AM CDT) WBC 8.2 3.8 - 9.9 K/cumm Hgb 11.1(L) 13.0 - 17.5 g/dL [facility] Hct 34.8(L) 38.9 - 50.3 % [facility] Plt 175 150 - 400 K/cumm [facility] MPV 11.0 9.1 - 12.3 fL [facility] RBC 3.63(L) 4.30 - 5.80 M/cumm [facility] MCV 95.9 81.3 - 96.4 fL [facility] MCH 30.6 27.1 - 33.3 pg [facility] MCHC 31.9(L) 32.3 - 35.7 g/dL [facility] RDW CV 14.2 11.1 - 14.9 % [facility] RDW SD 50.2(H) 35.7 - 48.1 fL [facility] NRBC abs 0.00 0.00 - 0.01 K/cumm [facility] Blood 11/11/2024 7:48 AM CDT 11/11/2024 8:16 AM CDT us Kalina Coronado NP LAB BLOOD ORDERABLES Fi nal Result Performing Organization Address [facility] Co de Phone Number [facility] [address] Department [place] [address] * Gentamicin level random (11/11/2024 7:48 AM CDT) [facility] Gentamicin random 9.8 mcg/mL Comment: Interpretive Data No reference ranges have been established for random drug levels. Current Interpretive Data was last revised on 2020. Blood 11/11/2024 7:48 AM CDT 11/11/2024 8:16 AM CDT us Kami Gleason MD LAB BLOOD ORDERABLES Final Res ult Performing Organization Address [facility] Co de Phone Number [facility] [address] [place] [address] * (ABNORMAL) Basic metabolic panel (11/11/2024 7:48 AM CDT) [facility] Sodium 134(L) 135 - 145 mmol/L Potassium, pl 4.0 3.3 - 4.9 mmol/L [facility] Chloride 101 97 - 110 mmol/L [facility] CO2 24 22 - 32 mmol/L [facility] Anion gap 9 2 - 15 mmol/L [facility] BUN 35(H) 6 - 25 mg/dL [facility] Creatinine 1.50(H) 0.80 - 1.30 mg/dL [facility] Glucose 136 70 - 199 mg/dL [facility] Comment: Interpretive Data Fasting glucose [...] Calcium 9.4 8.5 - 10.3 mg/dL [facility] Blood 11/11/2024 7:48 AM CDT 11/11/2024 8:16 AM CDT Kami Gleason MD LAB BLOOD ORDERABLES Final Res ult Performing Organization Address [facility]/ZIP Co de Phone Number [facility] [address] [address] * POCT glucose (11/11/2024 6:41 AM CDT) Glucose, POC 155 70 - 199 mg/dL Comment: For Glucose values <35 mg/dl when Hematocrit is >60 mg/dl,the test may not accurately detect significant hypoglycemia,and testing in the Laboratory should be considered if clinically indicated. Blood 11/11/2024 6:41 AM CDT 11/11/2024 6:41 AM CDT [facility] LAB POCT ORDERABLES - DEVICE F inal Result Performing Organization Address [facility]/ZIP Co de Phone Number [facility] [address] [place] [address] * POCT glucose (11/10/2024 8:11 PM CDT) Glucose, POC 179 70 - 199 mg/dL Comment: For Glucose values <35 mg/dl when Hematocrit is >60 mg/dl,the test may not accurately detect significant hypoglycemia,and testing in the Laboratory should be considered if clinically indicated. Blood 11/10/2024 8:11 PM CDT 11/10/2024 8:11 PM CDT [facility] LAB POCT ORDERABLES - DEVICE F inal Result Performing Organization Address [facility] Co de Phone Number [facility] [address] [place] [address] * POCT glucose (11/10/2024 4:46 PM CDT) Glucose, POC 134 70 - 199 mg/dL Comment: For Glucose values <35 mg/dl when Hematocrit is >60 mg/dl,the test may not accurately detect significant hypoglycemia,and testing in the Laboratory should be considered if clinically indicated. Blood 11/10/2024 4:46 PM CDT 11/10/2024 4:46 PM CDT [facility] LAB POCT ORDERABLES - DEVICE F inal Result Performing Organization Address [facility] Co de Phone Number [facility] [address] [facility] [place] [address] * POCT glucose (11/10/2024 12:00 PM CDT) Glucose, POC 98 70 - 199 mg/dL Comment: For Glucose values <35 mg/dl when Hematocrit is >60 mg/dl,the test may not accurately detect significant hypoglycemia,and testing in the Laboratory should be considered if clinically indicated. Blood 11/10/2024 12:0 0 PM CDT 11/10/2024 12:00 PM CDT [facility] LAB POCT ORDERABLES - DEVICE F inal Result Performing Organization Address [facility] Co de Phone Number [facility] [address] [place] [address] * POCT glucose (11/10/2024 7:38 AM CDT) Glucose, POC 112 70 - 199 mg/dL Comment: For Glucose values <35 mg/dl when Hematocrit is >60 mg/dl,the test may not accurately detect significant hypoglycemia,and testing in the Laboratory should be considered if clinically indicated. Blood 11/10/2024 7:38 AM CDT 11/10/2024 7:38 AM CDT [facility] LAB POCT ORDERABLES - DEVICE F inal Result Performing Organization Address [facility] de Phone Number [facility] [address] [facility] [address] * (ABNORMAL) POCT glucose (11/09/2024 8:32 PM CDT) Glucose, POC 222(H) 70 - 199 mg/dL Comment: For Glucose values <35 mg/dl when Hematocrit is >60 mg/dl,the test may not accurately detect significant hypoglycemia,and testing in the Laboratory should be considered if clinically indicated. Blood 11/09/2024 8:32 PM CDT 11/09/2024 8:32 PM CDT Result [facility] LAB POCT ORDERABLES - DEVICE F inal Result Performing Organization Address [facility] de Phone Number [facility] [address] [facility] [place] [address] * POCT glucose (11/09/2024 5:35 PM CDT) Glucose, POC 171 70 - 199 mg/dL Comment: For Glucose values <35 mg/dl when Hematocrit is >60 mg/dl,the test may not accurately detect significant hypoglycemia,and testing in the Laboratory should be considered if clinically indicated. Blood 11/09/2024 5:35 PM CDT 11/09/2024 5:35 PM CDT [facility] LAB POCT ORDERABLES - DEVICE F inal Result Performing Organization Address [facility] Co de Phone Number [facility] [address] Department [place] [address] * (ABNORMAL) eGFR (11/09/2024 4:58 PM CDT) [...] ORDERABLES Final Res ult Performing Organization Address [facility]/ZIP Co de Phone Number [facility] [address] Department [place] [address] * (ABNORMAL) Basic metabolic panel (11/09/2024 4:58 PM CDT) Pathologist [facility] Sodium 134(L) 135 - 145 mmol/L Potassium, pl 4.6 3.3 - 4.9 mmol/L [facility] Chloride 101 97 - 110 mmol/L [facility] CO2 21(L) 22 - 32 mmol/L [facility] Anion gap 12 2 - 15 mmol/L [facility] BUN 29(H) 6 - 25 mg/dL [facility] Creatinine 1.39(H) 0.80 - 1.30 mg/dL [facility] Glucose 203(H) 70 - 199 mg/dL [facility] Comment: Interpretive Data Fasting glucose [...] 2022. Calcium 10.0 8.5 - 10.3 mg/dL [facility] Blood 11/09/2024 4:58 PM CDT 11/09/2024 5:50 PM CDT Kami Gleason MD LAB BLOOD ORDERABLES Final Res ult Performing Organization Address City/[facility]/ZIP Co de Phone Number [facility] [address] [place] [address] * POCT glucose (11/09/2024 10:08 AM CDT) [facility] Signature Glucose, POC 167 70 - 199 mg/dL Comment: For Glucose values <35 mg/dl when Hematocrit is >60 mg/dl,the test may not accurately detect significant hypoglycemia,and testing in the Laboratory should be considered if clinically indicated. Blood 11/09/2024 10:0 8 AM CDT 11/09/2024 10:08 AM CDT Kami Gleason MD LAB POCT ORDERABLES - DEVICE F inal Result Performing Organization Address City/[facility]/ZIP Co de Phone Number [facility] [address] [place] [address] * POCT glucose (11/09/2024 9:20 AM CDT) [facility] Signature Glucose, POC 163 70 - 199 mg/dL Comment: For Glucose values <35 mg/dl when Hematocrit is >60 mg/dl,the test may not accurately detect significant hypoglycemia,and testing in the Laboratory should be considered if clinically indicated. Blood 11/09/2024 9:20 AM CDT 11/09/2024 9:20 AM CDT Kami Gleason MD LAB POCT ORDERABLES - DEVICE F inal Result [facility] [address] Department [place] [address] * UT AN ELECTIVE ENDOTRACHEAL AIRWAY, UT AN PROCEDURE PLACEHOLDER (11/09/2024 7:54 AM CDT) Narrative Jorge Sun CRNA - 11/09/2024 7:54 AM CDT Jorge Sun CRNA 11/09/2024 7:55 AM Airway Patient location: OR Urgency: elective Indications for airway management: anesthesia and airway protection Difficult airway: no Staff: Supervising provider: Lai Gregg DO Placed by: YARN DUMPER: Jorge Sun CRNA Emergent airway documentation: Risks [...] POCT ORDERABLES - DEVICE F inal Result [facility] [address] Department [place] [address] * (ABNORMAL) Urinalysis reflex to microscopic and culture Urine, bladder (10/26/2024 1:43 PM LAND APPRAISER) Color, ur Straw Yellow Clarity, ur Clear Clear [facility] Specific gravity, ur 1.010 1.003 - 1.030 [facility] pH, urine 6.5 [facility] Comment: Interpretive Data U rine pH is affected by diet, medications, systemic acid-base disturbances, and renal tubular function. pH may affect urinary stone formation. For example, urine pH below 6.0 may help reduce the tendency for calcium phosphate stones and pH greater than 6.0 may reduce the tendency for uric acid stone formation. Source: [facility] Current Interpretive Data was last revised on 2017 Protein, ur ql Trace Negative [facility] Glucose, ur ql Negative Negative [facility] Ketones, ur Negative Negative [facility] Bilirubin, ur Negative Negative [facility] Blood, ur 1+(A) Negative [facility] Urobilinogen, ur <2.0 <2.0 mg/dL [facility] Nitrite, ur Negative Negative [facility] Leukocyte esterase, ur Negative Negative [facility] UA reflex comment Reflex to microscopic UA will be performed. [facility] Urine, bladder 10/26/2024 1: 43 PM LAND APPRAISER 10/26/2024 2:03 PM LAND APPRAISER Kami Gleason MD LAB MICROBIOLOGY - GENERAL ORD ERABLES Final Result Performing Organization Address City/[facility]/ZIP Co de Phone Number [facility] [address] Department [place] [address] * Urinalysis, microscopic only (10/26/2024 1:43 PM LAND APPRAISER) WBC, ur 0-5 0 - 5 /HPF RBC, ur 0-2 0 - 2 /HPF [facility] Culture Reflex Comment Reflex conditions for urine culture (WBC >10) not met. [facility] Urine, bladder 10/26/2024 1: 43 PM LAND APPRAISER 10/26/2024 2:03 PM LAND APPRAISER Kami Gleason MD LAB URINE ORDERABLES Final Res ult Performing Organization Address [facility]/ZIP Co de Phone Number [facility] [address] Department [place] [address] * (ABNORMAL) eGFR (09/27/2024 10:40 AM LAND APPRAISER) eGFR 42(L) >=60 mL/min/1. 73 m2 Comment: [...] reviewed 2021. Blood 09/27/2024 10:4 0 AM LAND APPRAISER 09/27/2024 10:57 AM LAND APPRAISER us Chicho Clayton MD LAB BLOOD ORDERABLES Final Resul t [facility] Department [place] [address] * (ABNORMAL) Differential, auto (09/27/2024 10:40 AM LAND APPRAISER) Neutrophil abs 7.8(H) 1.5 - 6.5 K/cumm Comment:Testing performed by : [facility], [address] [place] [phone] Lymphocyte abs 1.5 0.8 - 3.3 K/cumm [facility] Comment:Testing performed by : [facility], [address] [place] [phone] Monocyte abs 0.6 0.2 - 0.8 K/cumm [facility] Comment:Testing performed by : [facility], [address] [place] [phone] Eosinophil abs 0.1 0.0 - 0.5 K/cumm [facility] Comment:Testing performed by : [facility], [address] [place] [phone] Basophil abs 0.1 0.0 - 0.1 K/cumm [facility] Comment:Testing performed by : [facility], [address] [place] [phone] Neutrophil pct 77.5 % [facility] Comment: Interpretive Data Percent cell count reference ranges are not reported, since discordance with absolute values may lead to misinterpretation of CBC data. Current Interpretive Data was last revised on 2017. Testing performed by: [facility], [address] [place] [phone] Lymphocyte pct 14.9 % [facility]ER BJ Comment: Interpretive Data Percent cell count reference ranges are not reported, since discordance with absolute values may lead to misinterpretation of CBC data. Current Interpretive Data was last revised on 2017. Testing performed by: [facility], [address] [place] [phone] Monocyte pct 5.7 % DARIN BRYSON Comment: Interpretive Data Percent cell count reference ranges are not reported, since discordance with absolute values may lead to misinterpretation of CBC data. Current Interpretive Data was last revised on 2017. Testing performed by: [facility], [address] [place] [phone] Eosinophil pct 1.3 % DARIN BRYSON Comment: Interpretive Data Percent cell count reference ranges are not reported, since discordance with absolute values may lead to misinterpretation of CBC data. Current Interpretive Data was last revised on 2017. Testing performed by: [facility], [address] [place] [phone] Basophil pct 0.6 % DARIN BRYSON Comment: Interpretive Data Percent cell count reference ranges are not reported, since discordance with absolute values may lead to misinterpretation of CBC data. Current Interpretive Data was last revised on 2017. Testing performed by: [facility], [address] [place] [phone] Blood 09/27/2024 10:4 0 AM LAND APPRAISER 09/27/2024 10:56 AM LAND APPRAISER us Chicho Clayton MD LAB BLOOD ORDERABLES Final Resul t [facility] Department [place] [address] * (ABNORMAL) CBC with auto differential (09/27/2024 10:40 AM LAND APPRAISER) WBC 10.0(H) 3.8 - 9.9 K/cumm Comment:Testing performed by : [facility], [address] [place] [phone] Hgb 10.5(L) 13.0 - 17.5 g/dL DARIN PERDOMO Comment:Testing performed by : [facility], [address] [place], [place] [phone] Hct 30.8(L) 38.9 - 50.3 % CERNER BJ Comment:Testing performed by : [facility], [address] [place], [place] [phone] Plt 206 150 - 400 K/cumm CERNER BJ Comment:Testing performed by : [facility], [address] [place], [place] [phone] MPV 8.9 6.8 - 10.4 fL [facility] BJ Comment:Testing performed by : [facility], [address] [place], [place] [phone] RBC 3.33(L) 4.30 - 5.80 M/cumm [facility]ER BJ Comment:Testing performed by : [facility], [address] [place], [place] [phone] MCV 92.4 81.3 - 96.4 fL [facility] BJ Comment:Testing performed by : [facility], [address] [place], [place] [phone] MCH 31.6 27.1 - 33.3 pg [facility] Comment:Testing performed by : [facility], [address] [place], [place] [phone] MCHC 34.2 32.3 - 35.7 g/dL [facility] BJ Comment:Testing performed by : [facility], [address] [place], [place] [phone] RDW CV 14.0 11.1 - 14.9 % [facility]ER BJ Comment:Testing performed by : [facility], [address] [place], [place] [phone] NRBC abs 0.00 0.00 - 0.01 K/cumm [facility] BJ Comment:Testing performed by : [facility], [address] [place], [place] [phone] Blood 09/27/2024 10:4 0 AM LAND APPRAISER 09/27/2024 10:56 AM LAND APPRAISER us Chicho Clayton MD LAB BLOOD ORDERABLES Final Resul t Performing Organization Address [facility] Co de Phone Number [facility] Department [place] [address] * PSA diagnostic (09/27/2024 10:40 AM LAND APPRAISER) PSA-Total 5.26 <=6.20 ng/mL Comment: Interpretive Data [...] revised 22. Blood 09/27/2024 10:4 0 AM LAND APPRAISER 09/27/2024 10:57 AM LAND APPRAISER us Chicho Clayton MD LAB BLOOD ORDERABLES Final Resul t Performing Organization Address [facility] Co de Phone Number [facility] Department [place] [address] * Lactate dehydrogenase (LD) (09/27/2024 10:40 AM LAND APPRAISER) Lactate dehydrogenase (LDH) 121 100 - 250 Units/L Blood 09/27/2024 10:4 0 AM LAND APPRAISER 09/27/2024 10:57 AM LAND APPRAISER us Chicho Clayton MD LAB BLOOD ORDERABLES Final Resul t Performing Organization Address City/[facility] Co de Phone Number [facility] [place] [address] * (ABNORMAL) Comprehensive metabolic panel (09/27/2024 10:40 AM LAND APPRAISER) Sodium 142 135 - 145 mmol/L Potassium, pl 4.1 3.3 - 4.9 mmol/L [facility] Chloride 108 97 - 110 mmol/L [facility] CO2 29 22 - 32 mmol/L [facility] Anion gap 5 2 - 15 [...] GENERAL H[facility]ITAL Blood 09/27/2024 10:4 0 AM LAND APPRAISER 09/27/2024 10:57 AM LAND APPRAISER us Chicho Clayton MD LAB BLOOD ORDERABLES Final Resul t [facility] Department [place] [address] * (ABNORMAL) Lipid panel (03/22/2024 10:23 AM [...] on 2018. Triglycerides 115 <=149 mg/dL [facility] Comment: Interpretive Data Ages < or [...] on 2018. HDL 37(L) >=40 mg/dL [facility] Comment: Interpretive Data Ages < or [...] 2018. LDL, calculated 67 <=129 mg/dL [facility] Comment: Interpretive Data Ages < or [...] revised on 2018. Non-HDL Cholesterol 90 mg/dL [facility] Comment: Interpretive Data Ages < or [...] last revised on 2018. Chol/HDL ratio 3 [facility] Blood 03/22/2024 10:2 3 AM CDT 03/22/2024 10:52 AM CDT us Antonette Rater [facility] LAB BLOOD ORDERABLES Final Resul t [facility] Department [place] [address] * CTA Abdominal Aorta And Bilateral Iliofemoral [...] * (ABNORMAL) Hemoglobin A1c (09/22/2023 12:19 PM LAND APPRAISER) Hgb A1C 6.0(H) 4.0 - 5.6 % [facility] Estimated Average Glucose 126 mg/dL [facility] Comment: The ADA recommends reporting an estimated Average Glucose (eAG) with all Hemoglobin A1c results using the equation derived from a study of 507 normal and diabetic adults. Minority populations were underrepresented and children were not included. (Diabetes Care 2020; 43(S1): S66-S76). The eAG is not equivalent to a fasting glucose. Blood 09/22/2023 12:1 9 PM LAND APPRAISER 09/22/2023 12:45 PM LAND APPRAISER Chicho Clayton MD LAB BLOOD ORDERABLES Final Resul t [facility] Department [place] [address] from Last 3 Months or Most Recently Relevant to Health Maintenance Insurance [facility] MEDICARE MEDICARE [facility] MEDICARE [facility] MEDICARE [facility] Advance Directives For more information, please contact: [phone] * Full Code (Latest Code Status on File) Date Activated Date Inactivated Comments 11/09/2024 2:36 PM 11/12/2024 6:36 PM * Full Code Date Activated Date Inactivated Comments 10/30/2022 5:29 PM 10/31/2022 7:15 PM * Full Code Date Activated Date Inactivated Comments 08/16/2019 9:46 AM 08/16/2019 5:30 PM Care Teams Acquisition Associate Relationship Specialty Start Date End Date Fuentes Orellana MD PCP - General 11/28/16 Itz Iyer MD [address] [address] Consulting Physician Urology 05/31/18 Shawnee Mckinney MD [address] [facility] [address] [place] [address] Referring Physician Urology 06/03/18 Chicho Clayton MD [address] [facility] [address] [place] [address] Medical Oncologist/Hematologis t Medical Oncology 06/07/18 Maria Guadalupe Palacios, BARAK Registered Nurse 06/10/18 Lupillo Davenport MD Referring Physician Radiation Oncology 06/16/18 Danis Meza NP [address] [place] [address] Nurse Practitioner Urology 10/06/22 Antonette Owens NP [address] [place] [address] Nurse Practitioner Cardiovascular Disease 10/06/22 Aniceto Foley MD [address] [facility] [id number] [place] [address] Surgeon Vascular Surgery 10/31/22
--- OUTSIDE RECORDS SUMMARY | 2024-12-17 17:31 | XMS_ITS | Encounter Summary ---
Author Organization [facility] Address [address] [facility] [place] [address] Phone Care Team Providers Care Emergency Medicine Specialist Name Role Phone Fuentes Orellana MD Primary Care Provider Brent Dickinson DO Unavailable [phone] Faviola Jiménez MARKETING CONTENT SPECIALIST, CRITICAL CARE EDUCATOR Unavailable Shawnee Mckinney MD Unavailable Chicho Clayton MD Unavailable Lai Lambert MARKETING CONTENT SPECIALIST, CRITICAL CARE EDUCATOR Unavailable Kami Meneses MD Unavailable [phone] Anette Bond MD Unavailable [phone] Kay Gordon APRN, CRITICAL CARE EDUCATOR Unavailable Kami Meneses MD Unavailable [phone] Reason for Visit * Reason Comments Medication Refill Encounter Details Date Type Department Care Team (Late st Contact Info) Description 11/12/2022 Refill [facility] - [facility]ology - [place] [address] [place] [id number] Ingrid Mccloud Ashley, PAC [address] [place] [address] Medication Refill Social History Tobacco Use Types [...] 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 [place] [address] PCP - General Family Medicine 07/06/15 Brent Dickinson DO [address] [facility] [place] [address] Gastroenterology 06/27/16 Faviola Jiménez, MARKETING CONTENT SPECIALIST, CRITICAL CARE EDUCATOR [address] [place] [address] Nurse Practitioner Advanced Practice Nurse 07/22/16 Shawnee Mckinney MD [address] [facility] [address] [place] [address] Urologist Urology 06/07/19 Chicho Clayton MD [address] [facility] [address] [place] [address] Oncology 06/13/19 Lai Lambert APRN, CRITICAL CARE EDUCATOR [address] [place] [address] Nurse Practitioner Advanced Practice Nurse 02/10/23 Kami Meneses MD [address] [address] Consulting Physician Urology 06/16/23 Anette Bond MD [address] [place] [address] Consulting Physician Gastroenterology 12/25/22 Kay Gordon APRN, CRITICAL CARE EDUCATOR [address] [place] [address] Nurse Practitioner Advanced Practice Nurse 06/16/24 Kami Meneses MD [address] [facility], [address] [address] Consulting Physician Urology 08/19/24 documented as of this encounter
--- OUTSIDE RECORDS SUMMARY | 2024-12-17 17:31 | XMS_ITS | Clinical Summary ---
Author Organization [facility] Address [address], [facility] [address] [place] [address] Phone Care Team Providers Care Polymer Tester Name Role Phone Fuentes Orellana MD Primary Care Provider Brent Dickinson DO Unavailable [phone] Faviola Jiménez AQUATIC SCIENTIST, DISK GRINDER Unavailable Shawnee Mckinney MD Unavailable Chicho Clayton MD Unavailable Lai Lambert AQUATIC SCIENTIST, DISK GRINDER Unavailable [phone] Kami Meneses MD Unavailable [phone] Anette Bond MD Unavailable [phone] Kay Gordon AQUATIC SCIENTIST, DISK GRINDER Unavailable Kami Meneses MD Unavailable [phone] Allergies No known active allergies Medications [...] PHYSICIAN GROUP UROLOGY [address] [place] [address] Kami Meneses MD Stress incontinence (female) (male) (Primary Dx) Discharge Disposition: Discharged to home or Selfcare 12/16/2024 Telephone [facility] [address] [place] [address] Kami Meneses MD 12/16/2024 Travel 10/26/2024 Telephone [facility] [address] [place] [address] Kami Meneses MD Pre-surgical question 09/27/2024 Results Follow-Up [facility] [address] [place] [address] Kami Meneses MD 09/26/2024 Telephone [facility] [address] [place] [address] Kami Meneses MD Results 09/23/2024 11:30 AM EXPOSURE MACHINE OPERATOR Clinical Support [facility] [address] [facility] [place] [address] NurseKody Urology UTI symptoms (Primary Dx) Discharge Disposition: Discharged to home or Selfcare 09/23/2024 Telephone [facility] [address] [facility] [place] [address] Kami Meneses MD Rash 09/23/2024 Travel from [...] 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 Not on file Not on cory e Last Filed Vital Signs Vital Sign Reading Time Taken Comments Blood Pressure 134/64 12/16/2024 10:20 AM CDT Pulse 68 12/16/2024 10:20 AM CDT Temperature 36.4 C (97.6 F) 08/10/2024 9:53 AM EXPOSURE MACHINE OPERATOR Respiratory Rate 18 12/16/2024 10:20 AM CDT [...] Description 01/27/2025 9:45 AM CDT Office Visit [facility] [address] [place] [address] Kami Meneses MD #2 [facility], [address] [address] Health Maintenance Due Date Last Done Comments [...] Comments CULTURE, URINE Routine 09/23/2024 12:47 PM EXPOSURE MACHINE OPERATOR UTI symptoms HM COLONOSCOPY Routine 05/24/2020 from Last 3 Months or Most Recently Relevant to Health Maintenance Results * CULTURE, URINE (09/23/2024 12:47 PM EXPOSURE MACHINE OPERATOR) CULTURE RESULTS ENTEROCOCCUS FAECALIS 09/26/2024 10:14 AM EXPOSURE MACHINE OPERATOR [facility] Culture (Pre-Op Catheter) Non-Phlebotomy Collection / Unknown 09/23/2024 12:47 PM EXPOSURE MACHINE OPERATOR 09/23/2024 12:47 PM EXPOSURE MACHINE OPERATOR Narrative [facility] - 09/26/2024 10:14 AM EXPOSURE MACHINE OPERATOR Susceptibility not performed on enterococcus species. Due [...] MICROBIOLOGY - GENERAL ORDERAB LES Final Result [facility] [address] [place] [address], [place] * COLONOSCOPY (05/24/2020) Brent Dickinson DO PROCEDURE/MINOR SURGICAL ORDERA BLES Final Result from Last 3 Months or Most Recently Relevant to Health Maintenance Insurance MEDICARE [facility] Care Teams Polymer Tester Relationship Specialty Start Date End Date Fuentes Orellana MD [address] [address] PCP - General Family Medicine 07/06/15 Brent Dickinson [place] [address] [address] Gastroenterology 06/27/16 Faviola Jiménez, AQUATIC SCIENTIST, DISK GRINDER [address] [address] Nurse Practitioner Advanced Practice Nurse 07/22/16 Shawnee Mckinney MD [address] [facility] [address] [place] [address] Urologist Urology 06/07/19 Chicho Clayton MD [address] [facility] [address] [place] [address] Oncology 06/13/19 Lai Lambert APRN, DISK GRINDER [address] [place] [address] Nurse Practitioner Advanced Practice Nurse 02/10/23 Kami Meneses MD #[address] [address] Consulting Physician Urology 06/16/23 Anette Bond MD #2 [place] [address] Consulting Physician Gastroenterology 12/25/22 Kay Gordon APRN, DISK GRINDER #2 [place] [address] Nurse Practitioner Advanced Practice Nurse 06/16/24 Kami Meneses MD #[address] [address] Consulting Physician Urology 08/19/24
--- OUTSIDE RECORDS SUMMARY | 2024-12-17 17:31 | XMS_ITS | Encounter Summary ---
Author Organization [facility] Address [address] [place] [address] Phone Care Team Providers Care Aquatic Life Laborer Name Role Phone Fuentes Orellana MD Primary Care Provider Brent Dickinson DO Unavailable [phone] Faviola Jiménez DB2 DEVELOPER, COMPLEX DIRECTOR Unavailable Shawnee Mckinney MD Unavailable Chicho Clayton MD Unavailable Lai Lambert DB2 DEVELOPER, COMPLEX DIRECTOR Unavailable [phone] Kami Meneses MD Unavailable [phone] Anette Bond MD Unavailable [phone] Kay Gordon DB2 DEVELOPER, COMPLEX DIRECTOR Unavailable Kami Meneses MD Unavailable [phone] Encounter Details Date Type Department Care Team (Late st Contact Info) Description 12/16/2024 Telephone [facility] [address] [place] [address] Kami Meneses MD [address] [address] Social History Tobacco Use Types Packs/Day Years [...] 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 Chicho Clayton at [place] for prostate. * Telephone Encounter - Kami Meneses MD - 12/16/2024 11:45 AM CDT Can you ask the patient who follows him for his prostate cancer? documented in this encounter Plan of Treatment Upcoming Encounters Date Type Department Care Team (Late st Contact Info) Description 01/27/2025 9:45 AM CDT Office Visit [facility] [address] [place] [address] Kami Meneses MD [address] [address] documented as of this encounter Visit Diagnoses Not on filedocumented in this encounter Care Teams Aquatic Life Laborer Relationship Specialty Start Date End Date Fuentes Orellana MD [address] [place] [address] PCP - General Family Medicine 07/06/15 Brent Dickinson DO [address] [facility] [place] [address] Gastroenterology 06/27/16 Faviola Jiménez APRN, COMPLEX DIRECTOR [address] [facility] [place] [address] Nurse Practitioner Advanced Practice Nurse 07/22/16 Shawnee Mckinney MD [address] [facility] [address] [place] [address] Urologist Urology 06/07/19 Chicho Clayton MD [address] [facility] [address] [place] [address] Oncology 06/13/19 Lai Lambert APRN, COMPLEX DIRECTOR #2 [place] [address] Nurse Practitioner Advanced Practice Nurse 02/10/23 Kami Meneses MD #[address] [address] Consulting Physician Urology 06/16/23 Anette Bond MD #2 [place] [address] Consulting Physician Gastroenterology 12/25/22 Kay Gordon APRN, COMPLEX DIRECTOR #2 [place] [address] Nurse Practitioner Advanced Practice Nurse 06/16/24 Kami Meneses MD #[address] [address] Consulting Physician Urology 08/19/24 documented as of this encounter
--- OUTSIDE RECORDS SUMMARY | 2024-12-17 17:31 | XMS_ITS ---
Author Organization [facility] [address] Address [address] [place] [address] Care Team Providers Care Superior Court Justice Name Role Phone Fuentes Orellana MD Primary Care Provider [phone] Itz Iyer MD Unavailable [phone] Shawnee Mckinney MD Unavailable [phone] Chicho Clayton MD Unavailable Maria Guadalupe Palacios RN Unavailable Unava ilable Lupillo Davenport MD Unavailable [phone] Danis Meza LOSS PREVENTION LEADER Unavailable [phone] Antonette Owens NP Unavailable Aniceto Foley MD Unavailable Active Problems Problem Noted Date Diagnosed Date [...] (10/21/2022): Added automatically from request for surgery [id number] Assessment & Plan (10/30/2022 2:56 PM SUGAR CANE FARM MANAGER): - OR 3/2 for planned R CEA - OU status, Q2h NV/VS monitoring - Bedrest today, OOB/PT POD #1 - SBP goal 100-160, nicardipine for elevated BP - Continue aspirin and statin - Plan to stager home medications and resume overnight Atherosclerosis of [place] ar teries of extremities with intermittent claudication, bilateral legs 06/03/2022 Melanoma 01/10/2021 Anxiety 01/10/2021 DM (diabetes mellitus) 01/10/2021 Assessment & Plan (10/30/2022 9:59 AM SUGAR CANE FARM MANAGER): - A1c 7.6% 10/2022 - SSI while inpatient - CC diet when eating Elevated left ventricular end-diastolic pressure (LVEDP) 11/15/2019 Encounter for surgical after care following surgery of circulatory system 05/20/2019 Prostate cancer 09/10/2018 Assessment & Plan (10/27/2018 9:53 AM SUGAR CANE FARM MANAGER): Follows with urology, has his PSA monitored it is increasing, but still WNL 1.4 Assessment & Plan (09/22/2018 11:35 AM SUGAR CANE FARM MANAGER): Has close follow up with his oncologist. His PSA was slightly elevated on last check. Hyperlipidemia 09/21/2017 Assessment & Plan (06/30/2018 9:38 AM CDT): His last lipid panel was within acceptable range; he will continue on a high intensity statin. Assessment & Plan (09/21/2017 11:34 AM SUGAR CANE FARM MANAGER): Continue Lipitor 40 mg daily. Essential hypertension 07/20/2017 Assessment & Plan (10/30/2022 2:57 PM SUGAR CANE FARM MANAGER): - Tight BP goals post-procedure - Continue home medications as indicated by BP goals as above, staggering overnight for gentle BP control Assessment & Plan (10/27/2018 9:54 AM SUGAR CANE FARM MANAGER): Hypertension is unchanged. Dietary sodium restriction. Blood pressure will be reassessed in 4 weeks. Assessment & Plan (09/22/2018 11:38 AM SUGAR CANE FARM MANAGER): Hypertension remains elevated. He is increasing [...] today Assessment & Plan (09/21/2017 11:33 AM SUGAR CANE FARM MANAGER): Blood pressure is well controlled today. Last visit we added HCTZ 12.5 mg daily. Continue current medications Assessment & Plan (08/10/2017 11:26 AM SUGAR CANE FARM MANAGER): Blood pressure is not controlled. Add hydrochlorothiazide 12.5 mg p.o. daily. He is compliant with medications but always add salt to food which I advised him not to do that. Assessment & Plan (07/20/2017 9:19 AM SUGAR CANE FARM MANAGER): Blood pressure remains uncontrolled. We will order renal Doppler ultrasound to rule out renal artery stenosis given the fact that he has peripheral vascular disease and coronary artery disease. I will increase amlodipine from 5-10 mg p.o. daily. If that does not control the blood pressure we will add hydrochlorothiazide 12.5 mg p.o. Daily. Coronary artery disease invo lving [place] coronary artery of [place] heart without angina pectoris 07/20/2017 Assessment & Plan (10/30/2022 9:58 AM SUGAR CANE FARM MANAGER): - Continue home medications as able - Maintained on Brilinta as an outpatient; held 1 week prior to OR - Will discuss with surgery team when to safely resume post-procedure Assessment & Plan (10/27/2018 9:59 AM SUGAR CANE FARM MANAGER): Coronary artery disease is improving with lifestyle modifications. Continue current treatment regimen. Cardiac status will be reassessed in 3 months. No chest pain. Minimal SOB. Continue asa, statin, brilinta Assessment & Plan (09/22/2018 11:36 AM SUGAR CANE FARM MANAGER): Coronary artery disease is unchanged. Regular [...] BB. Assessment & Plan (09/21/2017 11:33 AM SUGAR CANE FARM MANAGER): Continue aspirin, Brilinta, Toprol XL and atorvastatin. Assessment & Plan (08/10/2017 11:27 AM SUGAR CANE FARM MANAGER): Continue Brilinta and aspirin. Asymptomatic. Assessment & Plan (07/20/2017 9:19 AM SUGAR CANE FARM MANAGER): Continue aspirin, Brilinta, Lipitor , metoprolol PVD (peripheral vascular disease) 07/20/2017 Assessment & Plan (10/27/2018 9:21 AM SUGAR CANE FARM MANAGER): S/P bilateral ALVA angioplasty; right EIA angioplasty/stent 11/21/14. S/P aortoiliac angioplasty/stent 05/28/09. Continues on asa, statin and brilinta Assessment & Plan (09/21/2017 11:34 AM SUGAR CANE FARM MANAGER): He follows up with vascular surgery at [facility] Assessment & Plan (08/10/2017 11:27 AM SUGAR CANE FARM MANAGER): Renal ultrasound suggest more than 60% stenosis in the right renal artery and infrarenal stenosis 50-70%. He follows up with Dr. Foley from vascular surgery at [facility] Assessment & Plan (07/20/2017 9:20 AM SUGAR CANE FARM MANAGER): Patient will follow up with Dr. [...] 02/09/2019 Assessment & Plan (10/27/2018 10:17 AM SUGAR CANE FARM MANAGER): Persistent dizziness. Has stopped caffeine intake. [...] implant or graft 6 02/09/2019 Atherosclerosis of [place] artery of extremity 04/15/20 16 02/09/2019 Assessment & Plan (09/22/2018 11:26 AM SUGAR CANE FARM MANAGER): 80% circumflex s/p RICHARD. Moderate 30 % LAD with bridging Impotence of organic origin 09/18/2015 02/09/2019 Urinary tract infection 01/18/201501/29 Incontinence 01/18/2015 02/09/2019 Stricture, urethra 07/31/2011 9 Overview (12/10/2017): Description: Dilation 06/09/11 Nocturia 11/28/2010 02/09/2019 Hypertension 05/16/2009 02/09/2019 Assessment & Plan (10/27/2018 10:11 AM SUGAR CANE FARM MANAGER): Hypertension is {improving/stable/worsenin}. {plan; hypertension for POC:[id number]} Blood pressure will be reassessed {plan; follow-up 2 weeks/4weeks/3months:[id number]}. Increase amolodipine to 10 mg Continue all [...]
--- OUTSIDE RECORDS SUMMARY | 2024-12-17 17:31 | XMS_ITS | Encounter Summary ---
Author Organization [facility] Address [address] [place] [address] Phone Care Team Providers Care Oil Lease Broker Name Role Phone Fuentes Orellana MD Primary Care Provider Brent Dickinson DO Unavailable [phone] Faviola Jiménez FILLING ROOM OPERATOR, INSPECTOR WREATH Unavailable Shawnee Mckinney MD Unavailable Chicho Clayton MD Unavailable Lai Lambert FILLING ROOM OPERATOR, INSPECTOR WREATH Unavailable Kami Meneses MD Unavailable [phone] Anette Bond MD Unavailable [phone] Kay Gordon FILLING ROOM OPERATOR, INSPECTOR WREATH Unavailable Kami Meneses MD Unavailable [phone] Encounter Details Date Type Department Care Team (Late st Contact Info) Description 08/22/2024 Telephone [facility] [address] [place] [address] Kami Meneses MD [address] [address] Social History Tobacco Use Types Packs/Day Years [...] Job 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 Date 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 NDWATER CONSULTANT * Telephone Encounter - Elidia Dill - 08/29/2024 8:20 AM CST Please see Dr. Otto message. NDWATER CONSULTANT * Telephone Encounter - Kami Meneses MD [...] sphincter. This needs to be done at [facility] by me. He will need a urine culture 14 days prior to surgery. Hibiclens shower the night before morning of surgery, vancomycin and gentamicin for antibiotics NDWATER CONSULTANT NDWATER CONSULTANT documented in this encounter Plan of Treatment Upcoming Encounters Date Type Department Care Team (Late st Contact Info) Description 01/27/2025 9:45 AM CDT Office Visit [facility] #[address] [place] [address] Kami Meneses MD #2 [facility], [address] [address] documented as of this encounter Visit Diagnoses Not on filedocumented in this encounter Care Teams Oil Lease Broker Relationship Specialty Start Date End Date Fuentes Orellana MD [address] [place] [address] PCP - General Family Medicine 07/06/15 Brent Dickinson DO [address] [place] [address] Gastroenterology 06/27/16 Faviola Jiménez APRN, INSPECTOR WREATH [address] [place] [address] Nurse Practitioner Advanced Practice Nurse 07/22/16 Shawnee Mckinney MD [address] [facility] [address] [place] [address] Urologist Urology 06/07/19 Chicho Clayton MD [address] [facility] [address] [place] [address] Oncology 06/13/19 Lai Lambert APRN, INSPECTOR WREATH [address] [place] [address] Nurse Practitioner Advanced Practice Nurse 02/10/23 Kami Meneses MD #[address] [facility] [address] [place] [address] Consulting Physician Urology 06/16/23 Anette Bond MD #[address] [facility] [place] [address] Consulting Physician Gastroenterology 12/25/22 Kay Gordon APRN, INSPECTOR WREATH #2 [place] [address] Nurse Practitioner Advanced Practice Nurse 06/16/24 Kami Meneses MD [address] [facility] [address] [place] [address] Consulting Physician Urology 08/19/24 documented as of this encounter
--- OUTSIDE RECORDS SUMMARY | 2024-12-17 17:31 | XMS_ITS | Encounter Summary ---
Author Organization [facility] Address [address] [facility] [place] [address] Phone Care Team Providers Care Communications Designer Name Role Phone Fuentes Orellana MD Primary Care Provider Brent Dickinson DO Unavailable [phone] Faviola Jiménez HANDLE BENDER, MAP CLERK Unavailable Shawnee Mckinney MD Unavailable Chicho Clayton MD Unavailable Lai Lambert HANDLE BENDER, MAP CLERK Unavailable [phone] Kami Meneses MD Unavailable [phone] Anette Bond MD Unavailable [phone] Kay Gordon APRN, MAP CLERK Unavailable Kami Meneses MD Unavailable [phone] Reason for Visit * Reason Comments Medication Refill Encounter Details Date Type Department Care Team (Late st Contact Info) Description 03/25/2021 Refill [facility] - [place] #2 [place] [id number] Ingrid Mccloud Ashley, PAC [address] [place] [address] Medication Refill Social History Tobacco Use Types [...] Job 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 difficile Rule-Out 04/10/2021 04/10/20212020 12:16 AM CDT documented as of this encounter Care Teams Communications Designer Relationship Specialty Start Date End Date Fuentes Orellana MD [address] [place] [address] PCP - General Family Medicine 07/06/15 Brent Dickinson DO [address] [facility] [place] [address] Gastroenterology 06/27/16 Faviola Jiménez APRN, MAP CLERK [address] [place] [address] Nurse Practitioner Advanced Practice Nurse 07/22/16 Shawnee Mckinney MD [address] [facility] [address] [place] [address] Urologist Urology 06/07/19 Chicho Clayton MD 49[address] [facility] [address] [place] [address] Oncology 06/13/19 Lai Lambert APRN, MAP CLERK #2 [place] [address] Nurse Practitioner Advanced Practice Nurse 02/10/23 Kami Meneses MD #[address] [address] Consulting Physician Urology 06/16/23 Anette Bond MD #2 [place] [address] Consulting Physician Gastroenterology 12/25/22 Kay Gordon APRN, HODAN #2 [place] [address] Nurse Practitioner Advanced Practice Nurse 06/16/24 Kami Meneses MD #[address] [address] Consulting Physician Urology 08/19/24 documented as of this encounter
--- OUTSIDE RECORDS SUMMARY | 2024-12-17 17:31 | XMS_ITS | Clinical Summary ---
Author Organization Unknown Care Team Providers Care Electronic Assembler Name Role Phone PRABHJOT ESCOBAR, KIRK Unavailable Mikey MARTIN RN, ABI Unavailable Unavailable LOIS INSURANCE RATER, RICARDA Unavailable Unavailable MARCE PT, YANET Unavailable Unavailable VICTOR MANUEL PRODUCTION COST ESTIMATOR, DAPHNE Unavailable Unavailpatricia PAGE OT, TAMIE Unavailable Unavailable Payers Payer Name Policy Type Policy Number Effective Date Expira tion Date MEDICARE[place] [id number] Problems Condition Name Condition Details Condition Category [...] 08-31 00:00: 00 ATHSCL HEART DISEASE OF [place] CORONARY ARTERY W/O ANG PCTRS Active 08-31 [...] SPECIFIED FUNCTIONAL IMPLANTS Active 08-31 00:00: 00 JAIL (CURRENT) USE OF ASPIRIN Active 08-31 00:00: [...] 325 mg tablet 11-09 00:00: 00 Yes [id number] PAIN 1 tablet DAILY 1 tablet DAILY (route: oral) Med Classific ation: Analgesic , Anti-infl ammatory or Antipyret ic sulfamethox azole 800 mg-trimetho prim 160 mg tablet 11-12 00:00: 00 11-19 23:59 :00 No [id number] PROPHYLATIC 1 tablet 2 TIMES DAILY 1 tablet 2 TIMES DAILY (route: oral) Med Classific ation: Anti-Infe ctive Agents metoprolol tartrate 25 mg tablet 11-03 00:00: 00 Yes [id number] HIGH BLOOD PRESSURE 1 tablet 2 TIMES DAILY 1 tablet 2 TIMES DAILY (route: oral) Med Classific ation: Cardiovas cular Therapy Agents rosuvastati n 40 mg tablet 11-02 00:00: 00 Yes [id number] CHOLESTEROL 1 tablet DAILY 1 tablet DAILY (route: oral) Med Classific ation: Cardiovas cular Therapy Agents Brilinta 60 mg tablet 11-12 00:00: 00 Yes [id number] BLOOD THINNER 1 tablet 2 TIMES DAILY 1 tablet 2 TIMES DAILY (route: oral) Med Classific ation: Hematolog ical Agents acetaminoph en 500 mg tablet 11-12 00:00: 00 Yes [id number] NEEDED FOR PAIN 1-5/10 ON A 1-10 SCALE OR FEVER GREATER THAN 100.1 2 tablet EVERY 6 HOURS 2 tablet EVERY 6 HOURS (route: oral) Med Classific ation: Analgesic , Anti-infl ammatory or Antipyret ic alendronate 70 mg tablet 11-12 00:00: 00 Yes [id number] OSTEOARTHRI TIS 1 tablet WEEKLY 1 tablet WEEKLY (route: oral) Med Classific ation: Endocrine allopurinol 300 mg tablet 11-12 00:00: 00 Yes [id number] GOUT 1 tablet DAILY 1 tablet DAILY (route: oral) Med Classific ation: Gout and Hyperuric emia Therapy alprazolam 0.25 mg tablet 11-12 00:00: 00 Yes [id number] NEEDED FOR ANXIETY 1 tablet 3 TIMES DAILY 1 tablet 3 TIMES DAILY (route: oral) Med Classific ation: Central Nervous System Agents amlodipine 5 mg tablet 11-12 00:00: 00 Yes [id number] HIGH BLOOD PRESSURE 1 tablet DAILY 1 tablet DAILY (route: oral) Med Classific ation: Cardiovas cular Therapy Agents cephalexin 500 mg capsule 11-12 00:00: 00 11-18 23:59 :00 No [id number] PROPHYLATIC 1 capsule 2 TIMES DAILY 1 capsule 2 TIMES DAILY (route: oral) Med Classific ation: Anti-Infe ctive Agents chlorthalid one 25 mg tablet 11-12 00:00: 00 Yes [id number] HIGH BLOOD PRESSURE 1 tablet DAILY 1 tablet DAILY (route: oral) Med Classific ation: Cardiovas cular Therapy Agents Kerendia 10 mg tablet 11-12 00:00: 00 Yes [id number] KIDNEY DISEASE 1 tablet DAILY 1 tablet DAILY (route: oral) Med Classific ation: Cardiovas cular Therapy Agents pantoprazol e 40 mg tablet,ingrid yed release 11-12 00:00: 00 Yes [id number] GASTROESOPH AGEAL REFULX DISEASE 1 tablet DAILY 1 tablet DAILY (route: oral) Med Classific ation: Gastroint estinal Therapy Agents telmisartan 80 mg tablet 11-12 00:00: 00 Yes [id number] HIGH BLOOD PRESSURE 1 tablet DAILY 1 tablet DAILY (route: oral) Med Classific ation: Cardiovas cular Therapy Agents Tradjenta 5 mg tablet 11-12 00:00: 00 Yes [id number] DIABETES 1 tablet DAILY 1 tablet DAILY (route: oral) Med Classific ation: Endocrine nitroglycer in 0.3 mg sublingual tablet 11-12 00:00: 00 Yes [id number] NEEDED FOR CHEST PAIN 1 tablet EVERY 5 MINUTES TIMES 3 1 tablet EVERY 5 MINUTES TIMES 3 (route: sublingual ) Med Classific ation: Cardiovas cular Therapy Agents glimepiride 1 mg tablet 12-13 00:00: 00 Yes [id number] DIABETES 1 mg 2 TIMES DAILY 1 mg 2 TIMES DAILY (route: oral) Alternate Route: BY MOUTH. Med Classific ation: Endocrine Gvoke 1 mg/0.2 mL subcutaneou s solution 12-13 00:00: 00 Yes [id number] LOW BLOOD SUGAR Per instruc tions NEEDED [...] RICK MD RN TO OBSERVE AND ASSESS, INSURANCE RATER/SKEIN YARN DRIER TO OBSERVE FOR RISK FOR FALLS AND INSTRUCT IN FALL PREVENTION, HOME SAFETY, MEDICATION MANAGEMENT, INFECTION PREVENTION, AND NUTRITION MANAGEMENT. RN/INSURANCE RATER/SKEIN YARN DRIER NURSE MAY PERFORM O2 SATURATION LEVEL ON ADMISSION, EVERY VISIT AND PRN FOR SHORTNESS OF BREATH FOR RN TO ASSESS/INSURANCE RATER TO OBSERVE PATIENT, WITH NOTIFICATION TO THE PHYSICIAN IF SATURATION IS 90% IN THE ABSENCE OF MORE SPECIFIC PARAMETERS FROM THE PHYSICIAN. AGENCY MAY PERFORM A RESUMPTION OF CARE VISIT FOLLOWING ANY HOSPITAL ADMISSION. RN/INSURANCE RATER/SKEIN YARN DRIER TO MONITOR CO-MORBID CONDITIONS LISTED ON THE PLAN OF CARE AND ANY NEW CONDITIONS THAT PRESENT THEMSELVES DURING THIS EPISODE TO IDENTIFY CHANGES AND INTERVENE TO MINIMIZE COMPLICATIONS. [code = RN TO OBSERVE, ASSESS, EVALUATE, AND DEVELOP AN INDIVIDUALIZED PLAN OF CARE. AGENCY MAY ACCEPT ORDERS FROM CONSULTING PHYSICIANS KIRK RICK MD RN TO OBSERVE AND ASSESS, INSURANCE RATER/SKEIN YARN DRIER TO OBSERVE FOR RISK FOR FALLS AND INSTRUCT IN FALL PREVENTION, HOME SAFETY, MEDICATION MANAGEMENT, INFECTION PREVENTION, AND NUTRITION MANAGEMENT. RN/INSURANCE RATER/SKEIN YARN DRIER NURSE MAY PERFORM O2 SATURATION LEVEL ON ADMISSION, EVERY VISIT AND PRN FOR SHORTNESS OF BREATH FOR RN TO ASSESS/INSURANCE RATER TO OBSERVE PATIENT, WITH NOTIFICATION TO THE PHYSICIAN IF SATURATION IS 90% IN THE ABSENCE OF MORE SPECIFIC PARAMETERS FROM THE PHYSICIAN. AGENCY MAY PERFORM A RESUMPTION OF CARE VISIT FOLLOWING ANY HOSPITAL ADMISSION. RN/INSURANCE RATER/SKEIN YARN DRIER TO MONITOR CO-MORBID CONDITIONS LISTED ON THE [...] OT EVALUATION] Future Scheduled Test MEDICATION MANAGEMENT; RN/INSURANCE RATER/SKEIN YARN DRIER TO REVIEW MEDICATIONS FOR INTERACTIONS, EFFECTIVENESS OF DRUG THERAPY, AND SIGNS/SYMPTOMS OF ADVERSE REACTIONS. MAY INSTRUCT AND REINFORCE MEDICATION TEACHING RELATED TO THE USE OF MEDICATIONS, DOSAGE, FREQUENCY, PURPOSE, SIDE EFFECTS, AND TO REPORT COMPLICATIONS. [code = MEDICATION MANAGEMENT; RN/INSURANCE RATER/SKEIN YARN DRIER TO REVIEW MEDICATIONS FOR INTERACTIONS, EFFECTIVENESS OF DRUG THERAPY, AND SIGNS/SYMPTOMS OF ADVERSE REACTIONS. MAY INSTRUCT AND REINFORCE MEDICATION TEACHING RELATED TO THE USE OF MEDICATIONS, DOSAGE, FREQUENCY, PURPOSE, SIDE EFFECTS, AND TO REPORT COMPLICATIONS.] Future Scheduled Test ANTICOAGUL ATION MANAGEMENT; RN TO ASSESS AND TEACH, INSURANCE RATER/SKEIN YARN DRIER TO OBSERVE/TEACH/MONITOR EFFECTIVENESS OF ANTICOAGULATION THERAPY. RN/INSURANCE RATER/SKEIN YARN DRIER TO INSTRUCT ON SIGNS AND SYMPTOMS OF BLEEDING/ADVERSE REACTIONS TO REPORT TO PHYSICIAN. RN/INSURANCE RATER/SKEIN YARN DRIER TO PERFORM PT/INR VIA VENIPUNCTURE OR COAGUCHECK PRN PHYSICIAN ORDERSS RN/INSURANCE RATER/SKEIN YARN DRIER TO FAX/CALL IN RESULTS TO PHYSICIAN TIMELY [code = ANTICOAGULATION MANAGEMENT; RN TO ASSESS AND TEACH, INSURANCE RATER/SKEIN YARN DRIER TO OBSERVE/TEACH/MONITOR EFFECTIVENESS OF ANTICOAGULATION THERAPY. RN/INSURANCE RATER/SKEIN YARN DRIER TO INSTRUCT ON SIGNS AND SYMPTOMS OF BLEEDING/ADVERSE REACTIONS TO REPORT TO PHYSICIAN. RN/INSURANCE RATER/SKEIN YARN DRIER TO PERFORM PT/INR VIA VENIPUNCTURE OR COAGUCHECK PRN PHYSICIAN ORDERSS RN/INSURANCE RATER/SKEIN YARN DRIER TO FAX/CALL IN RESULTS TO PHYSICIAN TIMELY ] Future Scheduled Test FALL REDUC TION MANAGEMENT; RN TO ASSESS AND OBSERVE, INSURANCE RATER/SKEIN YARN DRIER TO OBSERVE FALL RISK FACTORS AND EDUCATE PATIENT/CAREGIVER ON STRATEGIES TO MINIMIZE THE RISK OF FALLING. [code = FALL REDUCTION MANAGEMENT; RN TO ASSESS AND OBSERVE, INSURANCE RATER/SKEIN YARN DRIER TO OBSERVE FALL RISK FACTORS AND EDUCATE PATIENT/CAREGIVER ON STRATEGIES TO MINIMIZE THE RISK OF FALLING.] Future Scheduled Test GENITOURIN KEZIA MANAGEMENT; RN TO ASSESS AND TEACH, INSURANCE RATER/SKEIN YARN DRIER TO OBSERVE AND TEACH RELATED TO ALTERED GENITOURINARY STATUS TO MINIMIZE COMPLICATIONS AND REDUCE HOSPITALIZATION. [code = GENITOURINARY MANAGEMENT; RN TO ASSESS AND TEACH, INSURANCE RATER/SKEIN YARN DRIER TO OBSERVE AND TEACH RELATED TO ALTERED GENITOURINARY STATUS TO MINIMIZE COMPLICATIONS AND REDUCE HOSPITALIZATION.] Future Scheduled Test URINARY IN CONTINENCE MANAGEMENT; RN TO ASSESS AND TEACH, INSURANCE RATER/LVNTO OBSERVE AND TEACH MANAGEMENT OF URINARY INCONTINENCE. TEACH/INSTRUCT ON PREVENTING INFECTION AND SKIN BREAKDOWN. RN/INSURANCE RATER/SKEIN YARN DRIER MAY INSTRUCT IN BLADDER TRAINING PROGRAM INDICATED. [code = URINARY INCONTINENCE MANAGEMENT; RN TO ASSESS AND TEACH, INSURANCE RATER/LVNTO OBSERVE AND TEACH MANAGEMENT OF URINARY INCONTINENCE. TEACH/INSTRUCT ON PREVENTING INFECTION AND SKIN BREAKDOWN. RN/INSURANCE RATER/SKEIN YARN DRIER MAY INSTRUCT IN BLADDER TRAINING PROGRAM INDICATED.] Future Scheduled Test DIABETES M ANAGEMENT; RN TO ASSESS AND TEACH, SKEIN YARN DRIER/INSURANCE RATER TO OBSERVE AND TEACH INSTRUCTIONS OF DIABETIC CARE TO INCLUDE: DIET DIABETIC SKIN CARE, SIGNS AND SYMPTOMS OF HYPO/HYPERGLYCEMIA, PROPER ADMINISTRATION OF DIABETIC MEDICATION. RN/SKEIN YARN DRIER/INSURANCE RATER TO INSTRUCT ON DIABETIC FOOT CARE AND MONITOR FOR SKIN LESIONS ON LOWER EXTREMITIES. BLOOD GLUCOSE TESTING DAILY RN TO ASSESS AND TEACH, SKEIN YARN DRIER/INSURANCE RATER TO OBSERVE AND TEACH PATIENT/CAREGIVER ABILITY TO PERFORM AND RECORD BLOOD GLUCOSE TESTING ORDERED AND TO REPORT ABNORMAL FINDINGS TO PHYSICIAN. RN/SKEIN YARN DRIER/INSURANCE RATER MAY PERFORM BLOOD GLUCOSE TEST NEEDED. RN/SKEIN YARN DRIER/INSURANCE RATER TO REPORT TO PHYSICIAN BLOOD GLUCOSE READINGS GREATER THAN 300 OR LESS THAN 70 RN/SKEIN YARN DRIER/INSURANCE RATER TO INSTRUCT PATIENT ON IMPORTANCE OF HGBA1C MONITORING, KIDNEY FUNCTION TEST, EYE AND FOOT EXAMS. [code = DIABETES MANAGEMENT; RN TO ASSESS AND TEACH, SKEIN YARN DRIER/INSURANCE RATER TO OBSERVE AND TEACH INSTRUCTIONS OF DIABETIC CARE TO INCLUDE: DIET DIABETIC SKIN CARE, SIGNS AND SYMPTOMS OF HYPO/HYPERGLYCEMIA, PROPER ADMINISTRATION OF DIABETIC MEDICATION. RN/SKEIN YARN DRIER/INSURANCE RATER TO INSTRUCT ON DIABETIC FOOT CARE AND MONITOR FOR SKIN LESIONS ON LOWER EXTREMITIES. BLOOD GLUCOSE TESTING DAILY RN TO ASSESS AND TEACH, SKEIN YARN DRIER/INSURANCE RATER TO OBSERVE AND TEACH PATIENT/CAREGIVER ABILITY TO PERFORM AND RECORD BLOOD GLUCOSE TESTING ORDERED AND TO REPORT ABNORMAL FINDINGS TO PHYSICIAN. RN/SKEIN YARN DRIER/INSURANCE RATER MAY PERFORM BLOOD GLUCOSE TEST NEEDED. RN/SKEIN YARN DRIER/INSURANCE RATER TO REPORT TO PHYSICIAN BLOOD GLUCOSE READINGS GREATER THAN 300 OR LESS THAN 70 RN/SKEIN YARN DRIER/INSURANCE RATER TO INSTRUCT PATIENT ON IMPORTANCE OF HGBA1C MONITORING, KIDNEY FUNCTION TEST, EYE AND FOOT EXAMS.] Future Scheduled Test PAIN MANAG EMENT; RN TO ASSESS AND TEACH, SKEIN YARN DRIER/INSURANCE RATER TO OBSERVE AND TEACH AND PROVIDE EDUCATION ON PAIN MANAGEMENT TECHNIQUES. [code = PAIN MANAGEMENT; RN TO ASSESS AND TEACH, SKEIN YARN DRIER/INSURANCE RATER TO OBSERVE AND TEACH AND PROVIDE EDUCATION ON PAIN MANAGEMENT TECHNIQUES.] Future Scheduled Test RN/INSURANCE RATER/SKEIN YARN DRIER TO PERFORM/TEACH INCISION CARE TO SUPRAPUBIC AND PERINEUM AREA: KEEP CLEAN AND DRY. INSPECT DAILY. NO LOTIONS OR OINTMENTS TO INCISIONS. MAY SHOWER AND PAT INCISIONS DRY. LEAVE ADHESIVE INTACT. [code = RN/INSURANCE RATER/SKEIN YARN DRIER TO PERFORM/TEACH INCISION CARE TO SUPRAPUBIC AND PERINEUM AREA: KEEP CLEAN AND DRY. INSPECT DAILY. NO LOTIONS OR OINTMENTS TO INCISIONS. MAY SHOWER AND PAT INCISIONS DRY. LEAVE ADHESIVE INTACT. ] Future Scheduled Test PRN VISITS ; NUMBER OF RN/INSURANCE RATER/SKEIN YARN DRIER VISITS: 1 RN/INSURANCE RATER/SKEIN YARN DRIER TO PERFORM: ASSESSMENT AND EDUCATION FOR THE FOLLOWING REASONS: INTEGUMENTARY/INCISION COMPLICATIONS [code = PRN VISITS; NUMBER OF RN/INSURANCE RATER/SKEIN YARN DRIER VISITS: 1 RN/INSURANCE RATER/SKEIN YARN DRIER TO PERFORM: ASSESSMENT AND EDUCATION FOR THE FOLLOWING REASONS: INTEGUMENTARY/INCISION COMPLICATIONS] Future Scheduled Test RISK FOR H OSPITALIZATION; RN TO ASSESS/TEACH, SKEIN YARN DRIER/INSURANCE RATER TO OBSERVE/TEACH PATIENT/CAREGIVER ON RISK FOR HOSPITALIZATION/EMERGENCY ROOM VISITS, TEACH SIGNS AND SYMPTOMS THAT PUT PATIENT AT RISK, WHEN TO NOTIFY NURSE/PHYSICIAN OF COMPLICATIONS/DECLINE, AND WHEN TO CALL 911. [code = RISK FOR HOSPITALIZATION; RN TO ASSESS/TEACH, SKEIN YARN DRIER/INSURANCE RATER TO OBSERVE/TEACH PATIENT/CAREGIVER ON RISK FOR HOSPITALIZATION/EMERGENCY ROOM VISITS, TEACH SIGNS AND SYMPTOMS THAT PUT PATIENT AT RISK, WHEN TO NOTIFY NURSE/PHYSICIAN OF COMPLICATIONS/DECLINE, AND WHEN TO CALL 911.] Future Scheduled Test CARDIOVASC ULAR SYSTEM; RN TO ASSESS/TEACH, INSURANCE RATER/SKEIN YARN DRIER TO OBSERVE/TEACH RELATED TO ALTERED CARDIOVASCULAR STATUS TO MINIMIZE COMPLICATIONS AND REDUCE HOSPITALIZATION. [code = CARDIOVASCULAR SYSTEM; RN TO ASSESS/TEACH, INSURANCE RATER/SKEIN YARN DRIER TO OBSERVE/TEACH RELATED TO ALTERED CARDIOVASCULAR STATUS TO MINIMIZE COMPLICATIONS AND REDUCE HOSPITALIZATION.] Future Scheduled Test HYPERTENSI ON MANAGEMENT; RN TO ASSESS AND TEACH, INSURANCE RATER/SKEIN YARN DRIER TO OBSERVE AND TEACH WARNING SIGNS AND SYMPTOMS TO AVOID HOSPITALIZATION. [code = HYPERTENSION MANAGEMENT; RN TO ASSESS AND TEACH, INSURANCE RATER/SKEIN YARN DRIER TO OBSERVE AND TEACH WARNING SIGNS AND SYMPTOMS TO AVOID HOSPITALIZATION.] Future Scheduled Test URINARY MO LECULAR TESTING PROTOCOL UP TO 2 PRN RN/INSURANCE RATER/SKEIN YARN DRIER VISITS MAY BE PERFORMED FOR S/S OF UTI. RN TO ASSESS, INSURANCE RATER/SKEIN YARN DRIER TO OBSERVE INITIATION OF UTI PROTOCOL. RN/SKEIN YARN DRIER/INSURANCE RATER TO INSTRUCT PATIENT AND/OR CAREGIVER ON S/S OF UTI TO REPORT TO RN/SKEIN YARN DRIER/INSURANCE RATER IF NEW OR WORSENING SYMPTOMS. DRINK PLENTY OF WATER THROUGHOUT THE DAY TO MAINTAIN HYDRATION (UNLESS CONTRAINDICATED.) URINATE WHEN THE URGE IS FELT, DO NOT WAIT. WASH GENITALS DAILY. WIPE FROM FRONT TO BACK AFTER HAVING A BOWEL MOVEMENT. RN/SKEIN YARN DRIER/INSURANCE RATER TO OBTAIN MOLECULAR URINE TESTING BY OPTION 1 OR OPTION 2 RN/SKEIN YARN DRIER/INSURANCE RATER TO OBTAIN U/A WITH REFLEX TO UTI PANEL (MOLECULAR) VIA CLEAN CATCH URINE AND IF UNABLE TO OBTAIN MAY PERFORM AN IN AND OUT CATH. IF PATIENT HAS INDWELLING CATHETER MAY OBTAIN FROM SAMPLING PORT. RN/SKEIN YARN DRIER/INSURANCE RATER TO OBTAIN UTI PANEL (MOLECULAR) VIA SWAB COLLECTION METHOD FROM ADULT BRIEF/DIAPER OR PAD IF PATIENT IS INCONTINENT. NOTIFY PROVIDER OF RESULTS AND OBTAIN FURTHER ORDERS. [code = URINARY MOLECULAR TESTING PROTOCOL UP TO 2 PRN RN/INSURANCE RATER/SKEIN YARN DRIER VISITS MAY BE PERFORMED FOR S/S OF UTI. RN TO ASSESS, INSURANCE RATER/SKEIN YARN DRIER TO OBSERVE INITIATION OF UTI PROTOCOL. RN/SKEIN YARN DRIER/INSURANCE RATER TO INSTRUCT PATIENT AND/OR CAREGIVER ON S/S OF UTI TO REPORT TO RN/SKEIN YARN DRIER/INSURANCE RATER IF NEW OR WORSENING SYMPTOMS. DRINK PLENTY OF WATER THROUGHOUT THE DAY TO MAINTAIN HYDRATION (UNLESS CONTRAINDICATED.) URINATE WHEN THE URGE IS FELT, DO NOT WAIT. WASH GENITALS DAILY. WIPE FROM FRONT TO BACK AFTER HAVING A BOWEL MOVEMENT. RN/SKEIN YARN DRIER/INSURANCE RATER TO OBTAIN MOLECULAR URINE TESTING BY OPTION 1 OR OPTION 2 RN/SKEIN YARN DRIER/INSURANCE RATER TO OBTAIN U/A WITH REFLEX TO UTI PANEL (MOLECULAR) VIA CLEAN CATCH URINE AND IF UNABLE TO OBTAIN MAY PERFORM AN IN AND OUT CATH. IF PATIENT HAS INDWELLING CATHETER MAY OBTAIN FROM SAMPLING [place]. RN/SKEIN YARN DRIER/INSURANCE RATER TO OBTAIN UTI PANEL (MOLECULAR) VIA SWAB [...] End Date/Time Encounter Type Admission Type Attending [facility] Facility Care Department Encounter ID Discharge Date Discharge Status Discharge Condition Discharge Reason Percent Goals Met 2024-11-14 00:00:00 2025-01-12 00:00:00 Outpatient NEW ADMISSION [facility] [id number] 76.00
--- OUTSIDE RECORDS SUMMARY | 2024-12-17 17:31 | XMS_ITS | Encounter Summary ---
Author Organization [facility] Address [address] [facility] [place] [address] Phone Care Team Providers Care Hoop Driving Machine Operator Name Role Phone Fuentes Orellana MD Primary Care Provider Brent Dickinson DO Unavailable [phone] Faviola Jiménez MED SPECIALIST, SHOES SALESPERSON Unavailable Shawnee Mckinney MD Unavailable Chicho Clayton MD Unavailable Lai Lambert MED SPECIALIST, SHOES SALESPERSON Unavailable Kami Meneses MD Unavailable [phone] Anette Bond MD Unavailable [phone] Kay Gordon APRN, SHOES SALESPERSON Unavailable Kami Meneses MD Unavailable [phone] Reason for Visit * Reason Comments Medication Refill Encounter Details Date Type Department Care Team (Late st Contact Info) Description 10/15/2021 Refill [facility] - Gastroenterology - [place] [address] [place] [id number] Ingrid Mccloud Ashley, PAC [address] [place] [address] Medication Refill Social History Tobacco Use Types [...] 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 RINTENDENT PRESSURE documented in this encounter Plan of Treatment Upcoming Encounters Date Type Department Care Team (Late st Contact Info) Description 01/27/2025 9:45 AM CDT Office Visit [facility] [address] [place] [address] Kami Meneses MD [address] [address] documented as of this encounter Visit Diagnoses Not on filedocumented in this encounter Care Teams Hoop Driving Machine Operator Relationship Specialty Start Date End Date Fuentes Orellana MD [address] [place] [address] PCP - General Family Medicine 07/06/15 Brent Dickinson DO [address] [place] [address] Gastroenterology 06/27/16 Faviola Jiménez APRN, SHOES SALESPERSON [address] [place] [place] [address] Nurse Practitioner Advanced Practice Nurse 07/22/16 Shawnee Mckinney MD [address] [facility] [address] [place] [address] Urologist Urology 06/07/19 Chicho Clayton MD [address] [facility] [address] [place] [address] Oncology 06/13/19 Lai Lambert APRN, SHOES SALESPERSON [address] [place] [address] Nurse Practitioner Advanced Practice Nurse 02/10/23 Kami Meneses MD [address] [address] Consulting Physician Urology 06/16/23 Anette Bond MD [address] [place] [address] Consulting Physician Gastroenterology 12/25/22 Kay Gordon APRN, SHOES SALESPERSON [address] [place] [address] Nurse Practitioner Advanced Practice Nurse 06/16/24 Kami Meneses MD [address] [address] Consulting Physician Urology 08/19/24 documented as of this encounter
--- OUTSIDE RECORDS SUMMARY | 2024-12-17 17:31 | XMS_ITS | Clinical Summary ---
Author Organization [facility] [address] Address [address] [place] [address] Care Team Providers Care Sack Cleaning Hand Name Role Phone Fuentes Orellana MD Primary Care Provider Itz Iyer MD Unavailable [phone] Shawnee Mckinney MD Unavailable [phone] Chicho Clayton MD Unavailable Maria Guadalupe Palacios RN Unavailable Unava ilable Lupillo Davenport MD Unavailable [phone] Danis Meza SPACE SYSTEMS OPERATIONS MANAGER Unavailable Antonette Owens NP Unavailable Aniceto Foley MD Unavailable [phone] Allergies No known active allergies Medications [...] immediate release tabletIndicatio ns:Coronary artery disease involving sh[place] coronary artery of [place] heart without angina pectoris Take 1 tablet [...] (10/21/2022): Added automatically from request for surgery [id number] Assessment & Plan (10/30/2022 2:56 PM WARPER FIXER): - OR 3/2 for planned R CEA - OU status, Q2h NV/VS monitoring - Bedrest today, OOB/PT POD #1 - SBP goal 100-160, nicardipine for elevated BP - Continue aspirin and statin - Plan to stager home medications and resume overnight Atherosclerosis of [place] ar teries of extremities with intermittent claudication, bilateral legs 06/03/2022 Melanoma 01/10/2021 Anxiety 01/10/2021 DM (diabetes mellitus) 01/10/2021 Assessment & Plan (10/30/2022 9:59 AM WARPER FIXER): - A1c 7.6% 10/2022 - SSI while inpatient - CC diet when eating Elevated left ventricular end-diastolic pressure (LVEDP) 11/15/2019 Encounter for surgical after care following surgery of circulatory system 05/20/2019 Prostate cancer 09/10/2018 Assessment & Plan (10/27/2018 9:53 AM WARPER FIXER): Follows with urology, has his PSA monitored it is increasing, but still WNL 1.4 Assessment & Plan (09/22/2018 11:35 AM WARPER FIXER): Has close follow up with his oncologist. His PSA was slightly elevated on last check. Hyperlipidemia 09/21/2017 Assessment & Plan (06/30/2018 9:38 AM CDT): His last lipid panel was within acceptable range; he will continue on a high intensity statin. Assessment & Plan (09/21/2017 11:34 AM WARPER FIXER): Continue Lipitor 40 mg daily. Essential hypertension 07/20/2017 Assessment & Plan (10/30/2022 2:57 PM WARPER FIXER): - Tight BP goals post-procedure - Continue home medications as indicated by BP goals as above, staggering overnight for gentle BP control Assessment & Plan (10/27/2018 9:54 AM WARPER FIXER): Hypertension is unchanged. Dietary sodium restriction. Blood pressure will be reassessed in 4 weeks. Assessment & Plan (09/22/2018 11:38 AM WARPER FIXER): Hypertension remains elevated. He is increasing his [...] today Assessment & Plan (09/21/2017 11:33 AM WARPER FIXER): Blood pressure is well controlled today. Last visit we added HCTZ 12.5 mg daily. Continue current medications Assessment & Plan (08/10/2017 11:26 AM WARPER FIXER): Blood pressure is not controlled. Add hydrochlorothiazide 12.5 mg p.o. daily. He is compliant with medications but always add salt to food which I advised him not to do that. Assessment & Plan (07/20/2017 9:19 AM WARPER FIXER): Blood pressure remains uncontrolled. We will order renal Doppler ultrasound to rule out renal artery stenosis given the fact that he has peripheral vascular disease and coronary artery disease. I will increase amlodipine from 5-10 mg p.o. daily. If that does not control the blood pressure we will add hydrochlorothiazide 12.5 mg p.o. Daily. Coronary artery disease invo lving shungnak coronary artery of [place] heart without angina pectoris 07/20/2017 Assessment & Plan (10/30/2022 9:58 AM WARPER FIXER): - Continue home medications as able - Maintained on Brilinta as an outpatient; held 1 week prior to OR - Will discuss with surgery team when to safely resume post-procedure Assessment & Plan (10/27/2018 9:59 AM WARPER FIXER): Coronary artery disease is improving with lifestyle modifications. Continue current treatment regimen. Cardiac status will be reassessed in 3 months. No chest pain. Minimal SOB. Continue asa, statin, brilinta Assessment & Plan (09/22/2018 11:36 AM WARPER FIXER): Coronary artery disease is unchanged. Regular aerobic [...] BB. Assessment & Plan (09/21/2017 11:33 AM WARPER FIXER): Continue aspirin, Brilinta, Toprol XL and atorvastatin. Assessment & Plan (08/10/2017 11:27 AM WARPER FIXER): Continue Brilinta and aspirin. Asymptomatic. Assessment & Plan (07/20/2017 9:19 AM WARPER FIXER): Continue aspirin, Brilinta, Lipitor , metoprolol PVD (peripheral vascular disease) 07/20/2017 Assessment & Plan (10/27/2018 9:21 AM WARPER FIXER): S/P bilateral ALVA angioplasty; right EIA angioplasty/stent 11/21/14. S/P aortoiliac angioplasty/stent 05/28/09. Continues on asa, statin and brilinta Assessment & Plan (09/21/2017 11:34 AM WARPER FIXER): He follows up with vascular surgery at [facility] Assessment & Plan (08/10/2017 11:27 AM WARPER FIXER): Renal ultrasound suggest more than 60% stenosis in the right renal artery and infrarenal stenosis 50-70%. He follows up with Dr. Foley from vascular surgery at [facility] Assessment & Plan (07/20/2017 9:20 AM WARPER FIXER): Patient will follow up with Dr. Foley from vascular surgery. He does have some claudication when he walks. 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 Has stopped caffeine intake. Has [...] implant or graft 6 02/09/2019 Atherosclerosis of sh[place] artery of extremity 04/15/20 16 02/09/2019 Assessment & Plan (09/22/2018 11:26 AM WARPER FIXER): 80% circumflex s/p RICHARD. 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 {plan; hypertension for POC:[id number]} Blood pressure will be reassessed {plan; follow-up 2 weeks/4weeks/3months:[id number]}. Increase amolodipine to 10 mg Continue all [...] Description 12/09/2024 1:00 PM CDT Office Visit [facility] Medical Group Cardiology [address] [place] [phone] Kay Ward NP Coronary artery disease of shung[place] artery of shung[place] heart with stable angina pectoris (Primary Dx); Orthostatic hypotension; LVH (left ventricular hypertrophy); PVD (peripheral vascular disease); Preoperative cardiovascular examination 11/10/2024 Telephone [facility] Home Care Services [address] [facility] [facility] [address] [place] [address] Cheryl Bundy 11/09/2024 7:30 AM CDT - 11/09/2024 10:00 AM CDT Surgery [facility] Operating Room [address] [place] [phone] Kami Meneses MD Cystoscopy 11/09/2024 7:30 AM CDT Anesthesia Event [facility] Operating Room [address] [place] [phone] Lai Gregg DO [place], Justin Kyle, CRNA 11/09/2024 5:14 AM CDT - 11/12/2024 2:30 PM CDT Hospital Encounter [address] [phone] Kami Meneses MD Intrinsic urethral sphincter deficiency (Primary Dx) Discharge Disposition: Discharge to home, home health skilled care 10/26/2024 12:45 PM WARPER FIXER Pre-Admission Testing [facility] Pre Anesthesia Testing [address] [place] [address] Stress incontinence 10/20/2024 10:30 AM WARPER FIXER Office Visit [facility] Medical Group Cardiology [address] [place] [address] Kay Ward NP Coronary artery disease of sh[place] artery of [place] heart with stable angina pectoris (Primary Dx); Preoperative cardiovascular examination; Orthostatic hypotension; LVH (left ventricular hypertrophy); PVD (peripheral vascular disease) 10/13/2024 Telephone [facility] Medical [facility] Cardiology [address] [place] [address] Mariangel Palmer MD cardiac clearance 09/27/2024 11:45 AM WARPER FIXER Office Visit [facility] Oncology [facility] [facility] Floor 5 [place] [address] Chicho Clayton MD Prostate cancer (HCC) (Primary Dx) 09/27/2024 11:00 AM WARPER FIXER Lab 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 More than 4 times per year 11/11/2024 Do you belong to any clubs o r organizations such as religion groups, unions, fraternal or athletic groups, or [...] any time in the past 12 m [facility], were you homeless or living [...] on file Legal Sex Male 12:32 AM WARPER FIXER Gender Identity Not on file Sexual Orientation [...] history exists Medical Devices Implanted Type Area Welder/Fitter Device Identifier Shelf Expiration Date Model / [...] and 61 to 70 cm pressure-regulating balloon. [employer] Vascu-Guard 8x.8cm Peripheral Patch Vascular Bovine Pericardium [id number]-[id number] - [id number] Implanted:Qty: 1 on 10/30/2022 by Aniceto Foley MD at [facility] Right: Carotid [employer] [id number] 07/09/2023 [id number] / / [id number] [employer] Ams 800 Kit Accessory Sterile Disposable Latex Free Urinary [id number] - [id number] Implanted:Qty: 1 on 11/09/2024 by Kami Meneses MD at [facility] N/A: Urethra [employer] [id number] 03/09/2029 [id number] / / [id number] [employer] Sandra Cuff Urethral Ams 800 Inhibizone 3.5cm [id number] - [id number] Implanted:Qty: 1 on 11/09/2024 by Kami Meneses MD at [facility] N/A: Urethra [employer] [id number] 02/22/2026 [id number] / / [id number] [employer] Ams 800 Pressure Balloon Sphincter 61-70cu Cm Implant Urological [id number] - [id number] Implanted:Qty: 1 on 11/09/2024 by Kami Meneses MD at [facility] N/A: Abdomen [employer] [id number] 03/20/2029 [id number] / / [id number] [employer] Ams 800 Control Pump Sphincter Implant Urological Inhibizone [id number] - [id number] Implanted:Qty: 1 on 11/09/2024 by Kami Meneses MD at [facility] N/A: Scrotum [employer] [id number] 02/15/2026 [id number] / / [id number] Procedures Procedure Name Priority Date/Time Associated Diagnosis [...] DEVICE Routine 11/09/2024 9 :20 AM CDT WA AN PROCEDURE PLACEHOLDER Routine 11/09/2024 7:54 AM CDT WA AN ELECTIVE ENDOTRACHEAL AIRWAY Routine 11/09/2024 7:54 AM CDT ARTIFICIAL URINARY SPHINCTER 11/09/2024 7:32 AM CDT Stress incontinence CYSTOSCOPY 11/09/2024 7:32 AM CDT Stress incontinence POCT GLUCOSE DEVICE Routine 11/09/2024 6 :43 AM CDT URINALYSIS, MICROSCOPIC ONLY Routine 10/26/2024 1:43 PM WARPER FIXER Stress incontinence URINALYSIS AND REFLEX TO MICROSCOPIC AND CULTURE Routine 10/26/2024 1:43 PM WARPER FIXER Stress incontinence EGFR Routine 09/27/2024 10:40 AM WARPER FIXER Prostate cancer (HCC) DIFFERENTIAL AUTO Routine 09/27/2024 10: 40 AM WARPER FIXER Prostate cancer (HCC) CBC WITH AUTO DIFFERENTIAL Routine 09/27/2024 10:40 AM WARPER FIXER Prostate cancer (HCC) COMPREHENSIVE METABOLIC PANEL Routine 09/27/2024 10:40 AM WARPER FIXER Prostate cancer (HCC) LACTATE DEHYDROGENASE Routine 09/27/2024 10:40 AM WARPER FIXER Prostate cancer (HCC) PSA DIAGNOSTIC Routine 09/27/2024 10:40 AM WARPER FIXER Prostate cancer (HCC) LIPID PANEL Routine 03/22/2024 10:23 AM CDT Coronary artery disease involving shungnak coronary artery of shung[place] heart without angina pectoris CTA ABDOMINAL AORTA AND BILATERAL ILIOFEMORAL RUNOFF Schedule Routine, Read Routine (OP Routine) 12/15/2023 1:56 PM CDT PVD (peripheral vascular disease) HEMOGLOBIN A1C Routine 09/22/2023 12:19 PM WARPER FIXER Prostate cancer (HCC) from Last 3 Months or Most Recently Relevant to Health Maintenance Results * POCT glucose (11/12/2024 11:38 AM CDT) Pathologist [facility] Glucose, POC 151 70 - 199 mg/dL Comment: For Glucose values <35 mg/dl when Hematocrit is >60 mg/dl,the test may not accurately detect significant hypoglycemia,and testing in the Laboratory should be considered if clinically indicated. Blood 11/12/2024 11:3 8 AM CDT 11/12/2024 11:38 AM CDT us Kami Gleason MD LAB POCT ORDERABLES - DEVICE F inal Result [facility] [address] [place] [address] * (ABNORMAL) eGFR (11/12/2024 8:15 AM CDT) [facility] eGFR 59(L) >=60 mL/min/1. 73 m2 Comment: [...] 9:17 AM CDT us Kalinacedric Ramirez Cliff SPACE SYSTEMS OPERATIONS MANAGER LAB BLOOD ORDERABLES Fi nal Result [facility] [address] [place], [place] [id number] * (ABNORMAL) Basic metabolic panel (11/12/2024 8:15 AM CDT) Sodium 138 135 - 145 mmol/L Potassium, pl 4.2 3.3 - 4.9 mmol/L [facility] Chloride 106 97 - 110 mmol/L [facility] CO2 21(L) 22 - 32 mmol/L [facility] Anion gap 11 2 - 15 mmol/L [facility] BUN 28(H) 6 - 25 mg/dL [facility] Creatinine 1.26 0.80 - 1.30 mg/dL [facility] Glucose 136 70 - 199 mg/dL [facility] Comment: Interpretive Data Fasting glucose [...] 9.2 8.5 - 10.3 mg/dL [facility] Blood 11/12/2024 8:15 AM CDT 11/12/2024 9:17 AM CDT us Kalina Ramirez Cliff SPACE SYSTEMS OPERATIONS MANAGER LAB BLOOD ORDERABLES Fi nal Result [facility] [address] [place] [address] * POCT glucose (11/12/2024 5:49 AM CDT) Glucose, POC 125 70 - 199 mg/dL Comment: For Glucose values <35 mg/dl when Hematocrit is >60 mg/dl,the test may not accurately detect significant hypoglycemia,and testing in the Laboratory should be considered if clinically indicated. Blood 11/12/2024 5:49 AM CDT 11/12/2024 5:49 AM CDT [facility] LAB POCT ORDERABLES - DEVICE F inal Result Performing Organization Address [facility] Co de Phone Number [facility] [address] [facility] [place] [address] * (ABNORMAL) POCT glucose (11/11/2024 8:22 PM CDT) Glucose, POC 214(H) 70 - 199 mg/dL Comment: For Glucose values <35 mg/dl when Hematocrit is >60 mg/dl,the test may not accurately detect significant hypoglycemia,and testing in the Laboratory should be considered if clinically indicated. Blood 11/11/2024 8:22 PM CDT 11/11/2024 8:22 PM CDT Result [facility] LAB POCT ORDERABLES - DEVICE F inal Result Performing Organization Address [facility] de Phone Number [facility] [address] [place] [address] * POCT glucose (11/11/2024 5:14 PM CDT) Glucose, POC 127 70 - 199 mg/dL Comment: For Glucose values <35 mg/dl when Hematocrit is >60 mg/dl,the test may not accurately detect significant hypoglycemia,and testing in the Laboratory should be considered if clinically indicated. Blood 11/11/2024 5:14 PM CDT 11/11/2024 5:14 PM CDT Result [facility] LAB POCT ORDERABLES - DEVICE F inal Result Performing Organization Address [facility] Co de Phone Number [facility] [address] Department [place] [address] * POCT glucose (11/11/2024 11:29 AM CDT) [facility] Glucose, POC 144 70 - 199 mg/dL Comment: For Glucose values <35 mg/dl when Hematocrit is >60 mg/dl,the test may not accurately detect significant hypoglycemia,and testing in the Laboratory should be considered if clinically indicated. Blood 11/11/2024 11:2 9 AM CDT 11/11/2024 11:29 AM CDT Kami Gleason MD LAB POCT ORDERABLES - DEVICE F inal Result [facility] [address] Department [place] [address] * (ABNORMAL) eGFR (11/11/2024 7:48 AM CDT) [facility] eGFR 48(L) >=60 mL/min/1. 73 m2 Comment: [...] BLOOD ORDERABLES Final Res ult [facility] [address] [place] Department [place] [address] * Differential, auto (11/11/2024 7:48 AM CDT) Neutrophil abs 5.4 1.5 - 6.5 K/cumm Imm gran abs 0.0 0.0 - 0.1 K/cumm [facility] Lymphocyte abs 1.8 0.8 - 3.3 K/cumm [facility] Monocyte abs 0.8 0.2 - 0.8 K/cumm [facility] Eosinophil abs 0.2 0.0 - 0.5 K/cumm [facility] Basophil abs 0.0 0.0 - 0.1 K/cumm [facility] Neutrophil pct 65.8 % [facility] Comment: Interpretive Data Percent cell count reference ranges are not reported, since discordance with absolute values may lead to misinterpretation of CBC data. Current Interpretive Data was last revised on 2017. Imm gran pct 0.5 % [facility] Comment: Interpretive Data Percent cell count reference ranges are not reported, since discordance with absolute values may lead to misinterpretation of CBC data. Current Interpretive Data was last revised on 2017. Lymphocyte pct 21.7 % [facility] Comment: Interpretive Data Percent cell count reference ranges are not reported, since discordance with absolute values may lead to misinterpretation of CBC data. Current Interpretive Data was last revised on 2017. Monocyte pct 10.0 % [facility] Comment: Interpretive Data Percent cell count reference ranges are not reported, since discordance with absolute values may lead to misinterpretation of CBC data. Current Interpretive Data was last revised on 2017. Eosinophil pct 1.8 % [facility] Comment: Interpretive Data Percent cell count reference ranges are not reported, since discordance with absolute values may lead to misinterpretation of CBC data. Current Interpretive Data was last revised on 2017. Basophil pct 0.2 % [facility] Comment: Interpretive Data Percent cell count reference ranges are not reported, since discordance with absolute values may lead to misinterpretation of CBC data. Current Interpretive Data was last revised on 2017. Blood 11/11/2024 7:48 AM CDT 11/11/2024 8:16 AM CDT [facility] Ashley Cliff SPACE SYSTEMS OPERATIONS MANAGER LAB BLOOD ORDERABLES Fi nal Result Performing Organization Address [facility] Co de Phone Number [facility] [address] [place] [address] * (ABNORMAL) CBC with auto differential (11/11/2024 7:48 AM CDT) WBC 8.2 3.8 - 9.9 K/cumm Hgb 11.1(L) 13.0 - 17.5 g/dL [facility] Hct 34.8(L) 38.9 - 50.3 % [facility] Plt 175 150 - 400 K/cumm [facility] MPV 11.0 9.1 - 12.3 fL [facility] RBC 3.63(L) 4.30 - 5.80 M/cumm [facility] MCV 95.9 81.3 - 96.4 fL [facility] MCH 30.6 27.1 - 33.3 pg [facility] MCHC 31.9(L) 32.3 - 35.7 g/dL [facility] RDW CV 14.2 11.1 - 14.9 % [facility] RDW SD 50.2(H) 35.7 - 48.1 fL [facility] NRBC abs 0.00 0.00 - 0.01 K/cumm [facility] Blood 11/11/2024 7:48 AM CDT 11/11/2024 8:16 AM CDT [facility] Ashley Cliff SPACE SYSTEMS OPERATIONS MANAGER LAB BLOOD ORDERABLES Fi nal Result Performing Organization Address City/[facility]/ZIP Co de Phone Number [facility] [address] [place] [address] * Gentamicin level random (11/11/2024 7:48 AM CDT) Gentamicin random 9.8 mcg/mL Comment: Interpretive Data No reference ranges have been established for random drug levels. Current Interpretive Data was last revised on 2020. Blood 11/11/2024 7:48 AM CDT 11/11/2024 8:16 AM CDT Kami Gleason MD LAB BLOOD ORDERABLES Final Res ult [facility] [address] Department [place] [address] * (ABNORMAL) Basic metabolic panel (11/11/2024 7:48 AM CDT) Pathologist [facility] Sodium 134(L) 135 - 145 mmol/L Potassium, pl 4.0 3.3 - 4.9 mmol/L [facility] Chloride 101 97 - 110 mmol/L [facility] CO2 24 22 - 32 mmol/L [facility] Anion gap 9 2 - 15 mmol/L [facility] BUN 35(H) 6 - 25 mg/dL [facility] Creatinine 1.50(H) 0.80 - 1.30 mg/dL [facility] Glucose 136 70 - 199 mg/dL [facility] Comment: Interpretive Data Fasting glucose [...] 9.4 8.5 - 10.3 mg/dL [facility] Blood 11/11/2024 7:48 AM CDT 11/11/2024 8:16 AM CDT Kami Gleason MD LAB BLOOD ORDERABLES Final Res ult Performing Organization Address [facility] Co de Phone Number [facility] [address] [facility] [place], [place] [id number] * POCT glucose (11/11/2024 6:41 AM CDT) [...] DEVICE F inal Result Performing Organization Address [facility] de Phone Number [facility] [address] [facility] [place] [address] * POCT glucose (11/10/2024 8:11 PM CDT) Glucose, POC 179 70 - 199 mg/dL Comment: For Glucose values <35 mg/dl when Hematocrit is >60 mg/dl,the test may not accurately detect significant hypoglycemia,and testing in the Laboratory should be considered if clinically indicated. Blood 11/10/2024 8:11 PM CDT 11/10/2024 8:11 PM CDT [facility] LAB POCT ORDERABLES - DEVICE F inal Result Performing Organization Address [facility] Co de Phone Number [facility] [address] [facility] [place], [place] [id number] * POCT glucose (11/10/2024 4:46 PM CDT) Glucose, POC 134 70 - 199 mg/dL Comment: For Glucose values <35 mg/dl when Hematocrit is >60 mg/dl,the test may not accurately detect significant hypoglycemia,and testing in the Laboratory should be considered if clinically indicated. Blood 11/10/2024 4:46 PM CDT 11/10/2024 4:46 PM CDT [facility] LAB POCT ORDERABLES - DEVICE F inal Result Performing Organization Address [facility] Co de Phone Number [facility] [address] [facility] [place], [place] [id number] * POCT glucose (11/10/2024 12:00 PM CDT) Glucose, POC 98 70 - 199 mg/dL Comment: For Glucose values <35 mg/dl when Hematocrit is >60 mg/dl,the test may not accurately detect significant hypoglycemia,and testing in the Laboratory should be considered if clinically indicated. Blood 11/10/2024 12:0 0 PM CDT 11/10/2024 12:00 PM CDT [facility] LAB POCT ORDERABLES - DEVICE F inal Result Performing Organization Address [facility] de Phone Number [facility] [address] [facility] [place], [place] [id number] * POCT glucose (11/10/2024 7:38 AM CDT) Glucose, POC 112 70 - 199 mg/dL Comment: For Glucose values <35 mg/dl when Hematocrit is >60 mg/dl,the test may not accurately detect significant hypoglycemia,and testing in the Laboratory should be considered if clinically indicated. Blood 11/10/2024 7:38 AM CDT 11/10/2024 7:38 AM CDT [facility] LAB POCT ORDERABLES - DEVICE F inal Result Performing Organization Address [facility] Co de Phone Number [facility] [address] [facility] [place] [address] * (ABNORMAL) POCT glucose (11/09/2024 8:32 PM CDT) Glucose, POC 222(H) 70 - 199 mg/dL Comment: For Glucose values <35 mg/dl when Hematocrit is >60 mg/dl,the test may not accurately detect significant hypoglycemia,and testing in the Laboratory should be considered if clinically indicated. Blood 11/09/2024 8:32 PM CDT 11/09/2024 8:32 PM CDT [facility] MD LAB POCT ORDERABLES - DEVICE F inal Result Performing Organization Address [facility] Co de Phone Number [facility] [address] [place] [address] * POCT glucose (11/09/2024 5:35 PM CDT) [facility] Glucose, POC 171 70 - 199 mg/dL Comment: For Glucose values <35 mg/dl when Hematocrit is >60 mg/dl,the test may not accurately detect significant hypoglycemia,and testing in the Laboratory should be considered if clinically indicated. Blood 11/09/2024 5:35 PM CDT 11/09/2024 5:35 PM CDT [facility] MD LAB POCT ORDERABLES - DEVICE F inal Result Performing Organization Address [facility] Co de Phone Number [facility] [address] [place] [address] * (ABNORMAL) eGFR (11/09/2024 4:58 PM CDT) [facility] eGFR 53(L) >=60 mL/min/1. 73 m2 Comment: [...] BLOOD ORDERABLES Final Res ult [facility] [address] [place] [address] * (ABNORMAL) Basic metabolic panel (11/09/2024 4:58 PM CDT) Sodium 134(L) 135 - 145 mmol/L Potassium, pl 4.6 3.3 - 4.9 mmol/L [facility] Chloride 101 97 - 110 mmol/L [facility] CO2 21(L) 22 - 32 mmol/L [facility] Anion gap 12 2 - 15 mmol/L [facility] BUN 29(H) 6 - 25 mg/dL [facility] Creatinine 1.39(H) 0.80 - 1.30 mg/dL [facility] Glucose 203(H) 70 - 199 mg/dL [facility] Comment: Interpretive Data Fasting glucose [...] 2022. Calcium 10.0 8.5 - 10.3 mg/dL [facility] Blood 11/09/2024 4:58 PM CDT 11/09/2024 5:50 PM CDT [facility] MD LAB BLOOD ORDERABLES Final Res ult Performing Organization Address [facility] Co de Phone Number [facility] [address] [facility] [place] [address] * POCT glucose (11/09/2024 10:08 AM CDT) [...] DEVICE F inal Result Performing Organization Address [facility] de Phone Number [facility] [address] [facility] [place] [address] * POCT glucose (11/09/2024 9:20 AM CDT) [...] DEVICE F inal Result Performing Organization Address [facility] Co de Phone Number [facility] [address] [place] [address] * WA AN ELECTIVE ENDOTRACHEAL AIRWAY, WA AN PROCEDURE PLACEHOLDER (11/09/2024 7:54 AM CDT) Narrative Jorge Sun CRNA - 11/09/2024 7:54 AM CDT Jorge Sun CRNA 11/09/2024 7:55 AM Airway Patient location: OR Urgency: elective Indications for airway management: anesthesia and airway protection Difficult airway: no Staff: Supervising provider: Lai Gregg DO Placed by: TELECOM ANALYST: Jorge Sun CRNA Emergent airway documentation: Risks [...] - DEVICE F inal Result [facility] [address] [place] [address] * (ABNORMAL) Urinalysis reflex to microscopic and culture Urine, bladder (10/26/2024 1:43 PM WARPER FIXER) Color, ur Straw Yellow Clarity, ur Clear Clear [facility] Specific gravity, ur 1.010 1.003 - 1.030 [facility] pH, urine 6.5 [facility] Comment: Interpretive Data U rine pH is affected by diet, medications, systemic acid-base disturbances, and renal tubular function. pH may affect urinary stone formation. For example, urine pH below 6.0 may help reduce the tendency for calcium phosphate stones and pH greater than 6.0 may reduce the tendency for uric acid stone formation. Source: [facility] Current Interpretive Data was last revised on 2017 Protein, ur ql Trace Negative [facility] Glucose, ur ql Negative Negative [facility] Ketones, ur Negative Negative [facility] Bilirubin, ur Negative Negative [facility] Blood, ur 1+(A) Negative [facility] Urobilinogen, ur <2.0 <2.0 mg/dL [facility] Nitrite, ur Negative Negative [facility] Leukocyte esterase, ur Negative Negative [facility] UA reflex comment Reflex to microscopic UA will be performed. [facility] Urine, bladder 10/26/2024 1: 43 PM WARPER FIXER 10/26/2024 2:03 PM WARPER FIXER Kami Gleason MD LAB MICROBIOLOGY - GENERAL ORD ERABLES Final Result Performing Organization Address City/[facility]/ZIP Co de Phone Number [facility] [address] [place] [address] * Urinalysis, microscopic only (10/26/2024 1:43 PM WARPER FIXER) WBC, ur 0-5 0 - 5 /HPF RBC, ur 0-2 0 - 2 /HPF [facility] Culture Reflex Comment Reflex conditions for urine culture (WBC >10) not met. [facility] Urine, bladder 10/26/2024 1: 43 PM WARPER FIXER 10/26/2024 2:03 PM WARPER FIXER Kami Gleason MD LAB URINE ORDERABLES Final Res ult [facility] [address] [place] [address] * (ABNORMAL) eGFR (09/27/2024 10:40 AM WARPER FIXER) eGFR 42(L) >=60 mL/min/1. 73 m2 Comment: [...] reviewed 2021. Blood 09/27/2024 10:4 0 AM WARPER FIXER 09/27/2024 10:57 AM WARPER FIXER us Chicho Clayton MD LAB BLOOD ORDERABLES Final Resul t [facility] Department [place] [address] * (ABNORMAL) Differential, auto (09/27/2024 10:40 AM WARPER FIXER) Neutrophil abs 7.8(H) 1.5 - 6.5 K/cumm Comment:Testing performed by : [facility], [address] [place] [phone] Lymphocyte abs 1.5 0.8 - 3.3 K/cumm [facility] Comment:Testing performed by : [facility], [address] [place] [phone] Monocyte abs 0.6 0.2 - 0.8 K/cumm [facility] Comment:Testing performed by : [facility], [address] [place] [phone] Eosinophil abs 0.1 0.0 - 0.5 K/cumm [facility] Comment:Testing performed by : [facility], [address] [place] [phone] Basophil abs 0.1 0.0 - 0.1 K/cumm [facility] Comment:Testing performed by : [facility], [address] [place] [phone] Neutrophil pct 77.5 % [facility] Comment: Interpretive Data Percent cell count reference ranges are not reported, since discordance with absolute values may lead to misinterpretation of CBC data. Current Interpretive Data was last revised on 2017. Testing performed by: [facility], [address] [place] [phone] Lymphocyte pct 14.9 % [facility] Comment: Interpretive Data Percent cell count reference ranges are not reported, since discordance with absolute values may lead to misinterpretation of CBC data. Current Interpretive Data was last revised on 2017. Testing performed by: [facility], [address] [place] [phone] Monocyte pct 5.7 % [facility] Comment: Interpretive Data Percent cell count reference ranges are not reported, since discordance with absolute values may lead to misinterpretation of CBC data. Current Interpretive Data was last revised on 2017. Testing performed by: [facility], [address] [place] [phone] Eosinophil pct 1.3 % [facility] Comment: Interpretive Data Percent cell count reference ranges are not reported, since discordance with absolute values may lead to misinterpretation of CBC data. Current Interpretive Data was last revised on 2017. Testing performed by: [facility], [address] [place] [address] Basophil pct 0.6 % [facility] Comment: Interpretive Data Percent cell count reference ranges are not reported, since discordance with absolute values may lead to misinterpretation of CBC data. Current Interpretive Data was last revised on 2017. Testing performed by: [facility], [address] [place] [address] Blood 09/27/2024 10:4 0 AM WARPER FIXER 09/27/2024 10:56 AM WARPER FIXER us Chicho Clayton MD LAB BLOOD ORDERABLES Final Resul t [facility] Department [place] [address] * (ABNORMAL) CBC with auto differential (09/27/2024 10:40 AM WARPER FIXER) WBC 10.0(H) 3.8 - 9.9 K/cumm Comment:Testing performed by : [facility], [address] [place] [address] Hgb 10.5(L) 13.0 - 17.5 g/dL [facility] Comment:Testing performed by : [facility], [address] [place] [address] Hct 30.8(L) 38.9 - 50.3 % [facility] Comment:Testing performed by : [facility], [address] [place] [address] Plt 206 150 - 400 K/cumm [facility] Comment:Testing performed by : [facility], [address] [place] [address] MPV 8.9 6.8 - 10.4 fL [facility] Comment:Testing performed by : [facility], [address] [place] [address] RBC 3.33(L) 4.30 - 5.80 M/cumm [facility] Comment:Testing performed by : [facility], [address] [place] [address] MCV 92.4 81.3 - 96.4 fL [facility] Comment:Testing performed by : [facility], [address] [place], [place] [phone] MCH 31.6 27.1 - 33.3 pg [facility] Comment:Testing performed by : [facility], [address] [place], [place] [phone] MCHC 34.2 32.3 - 35.7 g/dL [facility] Comment:Testing performed by : [facility], [address] [place], [place] [phone] RDW CV 14.0 11.1 - 14.9 % [facility] Comment:Testing performed by : [facility], [address] [place], [place] [phone] NRBC abs 0.00 0.00 - 0.01 K/cumm [facility] Comment:Testing performed by : [facility], [address] [place], [place] [phone] Blood 09/27/2024 10:4 0 AM WARPER FIXER 09/27/2024 10:56 AM WARPER FIXER us Chicho Clayton MD LAB BLOOD ORDERABLES Final Resul t [facility] Department [place] [address] * PSA diagnostic (09/27/2024 10:40 AM WARPER FIXER) PSA-Total 5.26 <=6.20 ng/mL Comment: Interpretive Data [...] revised 22. Blood 09/27/2024 10:4 0 AM WARPER FIXER 09/27/2024 10:57 AM WARPER FIXER us Chicho Clayton MD LAB BLOOD ORDERABLES Final Resul t Performing Organization Address [facility] Co de Phone Number [facility] [place] [address] * Lactate dehydrogenase (LD) (09/27/2024 10:40 AM WARPER FIXER) Lactate dehydrogenase (LDH) 121 100 - 250 Units/L Blood 09/27/2024 10:4 0 AM WARPER FIXER 09/27/2024 10:57 AM WARPER FIXER us Chicho Clayton MD LAB BLOOD ORDERABLES Final Resul t Performing Organization Address [facility] de Phone Number [facility] Department [place] [address] * (ABNORMAL) Comprehensive metabolic panel (09/27/2024 10:40 AM WARPER FIXER) Pathologist [facility] Sodium 142 135 - 145 mmol/L Potassium, pl 4.1 3.3 - 4.9 mmol/L [facility] Chloride 108 97 - 110 mmol/L [facility] CO2 29 22 - 32 mmol/L [facility] Anion gap 5 2 - 15 mmol/L [facility] BUN 32(H) 6 - 25 mg/dL [facility] Creatinine 1.68(H) 0.80 - 1.30 mg/dL [facility] Glucose 182 70 - 199 mg/dL [facility] Comment: Interpretive Data Fasting glucose [...] Calcium 10.4(H) 8.5 - 10.3 mg/dL [facility] Bilirubin, total 0.2 0.1 - 1.2 mg/dL [facility] Protein, pl 6.9 6.5 - 8.5 g/dL [facility] Albumin 3.7 3.5 - 5.0 g/dL [facility] Alk phos 102 40 - 130 Units/L [facility] ALT 14 7 - 55 Units/L [facility] AST 17 10 - 50 Units/L [facility] Blood 09/27/2024 10:4 0 AM WARPER FIXER 09/27/2024 10:57 AM WARPER FIXER us Chicho Clayton MD LAB BLOOD ORDERABLES Final Resul t [facility] Department [place] [address] * (ABNORMAL) Lipid panel (03/22/2024 10:23 AM [...] on 2018. Triglycerides 115 <=149 mg/dL [facility] Comment: Interpretive Data Ages < [...] on 2018. HDL 37(L) >=40 mg/dL [facility] Comment: Interpretive Data Ages < [...] 2018. LDL, calculated 67 <=129 mg/dL [facility] Comment: Interpretive Data Ages < [...] on 2018. Non-HDL Cholesterol 90 mg/dL [facility] Comment: Interpretive Data Ages < [...] last revised on 2018. Chol/HDL ratio 3 [facility] Blood 03/22/2024 10:2 3 AM CDT 03/22/2024 10:52 AM CDT us Antonette Rater SPACE SYSTEMS OPERATIONS MANAGER LAB BLOOD ORDERABLES Final Resul t [facility] [place] [address] * CTA Abdominal Aorta And Bilateral Iliofemoral [...] * (ABNORMAL) Hemoglobin A1c (09/22/2023 12:19 PM WARPER FIXER) Hgb A1C 6.0(H) 4.0 - 5.6 % [facility] Estimated Average Glucose 126 mg/dL [facility] Comment: The ADA recommends reporting an estimated Average Glucose (eAG) with all Hemoglobin A1c results using the equation derived from a study of 507 normal and diabetic adults. Minority populations were underrepresented and children were not included. (Diabetes Care 2020; 43(S1): S66-S76). The eAG is not equivalent to a fasting glucose. Blood 09/22/2023 12:1 9 PM WARPER FIXER 09/22/2023 12:45 PM WARPER FIXER Chicho Clayton MD LAB BLOOD ORDERABLES Final Resul t [facility] [place] [address] from Last 3 Months or Most Recently Relevant to Health Maintenance Insurance [facility] Member Subscriber Plan / Payer (Ef fective 2014-Present) Name:Rivera Freeman Relation to Subscriber:Self Name:Rivera Freeman Payer ID:[id number] Group ID:[id number] Type:COMMERCIAL Address: [address] [place] [id number] MEDICARE MEDICARE [facility] Member Subscriber Plan / Payer (Ef fective 2017-Present) Name:RIVERA FREEMAN Relation to Subscriber:Self Name:Rivera Freeman Payer ID:[id number] Group ID:[id number] Type:COMMERCIAL Address: [address] [place] [phone] MEDICARE [facility] MEDICARE [facility] Advance Directives For more information, please contact: [phone] * Full Code (Latest Code Status on File) Date Activated Date Inactivated Comments 11/09/2024 2:36 PM 11/12/2024 6:36 PM * Full Code Date Activated Date Inactivated Comments 10/30/2022 5:29 PM 10/31/2022 7:15 PM * Full Code Date Activated Date Inactivated Comments 08/16/2019 9:46 AM 08/16/2019 5:30 PM Care Teams Sack Cleaning Hand Relationship Specialty Start Date End Date Schueler, Fuentes F., MD PCP - General 11/28/16 Itz Iyer MD [address] [place] [address] Consulting Physician Urology 05/31/18 Shawnee Mckinney MD [address] [place] [address] Referring Physician Urology 06/03/18 Chicho Clayton MD [address] [facility] [address] [place] [address] Medical Oncologist/Hematologis t Medical Oncology 06/07/18 Maria Guadalupe Palacios, RN Registered Nurse 06/10/18 Lupillo Davenport MD Referring Physician Radiation Oncology 06/16/18 Danis Meza NP [address] [facility] [address] [place] [address] Nurse Practitioner Urology 10/06/22 Antonette Owens NP [address] [facility] [address] [place] [address] Nurse Practitioner Cardiovascular Disease 10/06/22 Aniceto Foley MD [address] [place] [address] Surgeon Vascular Surgery 10/31/22
--- OUTSIDE RECORDS SUMMARY | 2024-12-17 17:31 | XMS_ITS | Encounter Summary ---
Author Organization [facility] Address [address] [place] [address] Phone Care Team Providers Care Hospice Clinical Manager Name Role Phone Fuentes Orellana MD Primary Care Provider + [phone] Itz Iyer MD Unavailable [phone] Shawnee Mckinney MD Unavailable [phone] Chicho Clayton MD Unavailable Maria Guadalupe Palacios RN Unavailable Unava ilable Lupillo Davenport MD Unavailable [phone] Danis Meza STEPDOWN NURSE Unavailable Antonette Owens NP Unavailable Aniceto Foley MD Unavailable [phone] Encounter Details Date Type Department Care [...] on file 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 Gender Identity Not on file Sexual Orientation [...] on filedocumented in this encounter Care Teams Hospice Clinical Manager Relationship Specialty Start Date End Date Fuentes Orellana MD PCP - General 11/28/16 Itz Iyer MD [address] [place] [address] Consulting Physician Urology 05/31/18 Shawnee Mckinney MD [address] [place] [address] Referring Physician Urology 06/03/18 Chicho Clayton MD [address] [place] [address] Medical Oncologist/Hematologis t Medical Oncology 06/07/18 Maria Guadalupe Palacios, RN Registered Nurse 06/10/18 Lupillo Davenport MD Referring Physician Radiation Oncology 06/16/18 Danis Meza NP [address] [place] [address] Nurse Practitioner Urology 10/06/22 Antonette Owens NP [address] [place] [address] Nurse Practitioner Cardiovascular Disease 10/06/22 Aniceto Foley MD [address] [place] [address] Surgeon Vascular Surgery 10/31/22 documented as of this encounter
--- OUTSIDE RECORDS SUMMARY | 2024-12-17 17:31 | XMS_ITS | Encounter Summary ---
Author Organization [facility] Address [address] [facility] [address] [place] [address] Care Team Providers Care Blasting Entry Specialist Name Role Phone Fuentes Orellana MD Primary Care Provider + [phone] Fuentes Orellana MD Primary Care Provider + [phone] Itz Iyer MD Unavailable [phone] Lupillo Davenport MD Unavailable [phone] Lupillo Davenport MD Unavailable [phone] Shawnee Mckinney MD Unavailable [phone] Chicho Clayton MD Unavailable Newton Weeks MD Unavailable [phone] Maria Guadalupe Palacios RN Unavailable Unava ilable Lupillo Davenport MD Unavailable [phone] Itz Iyer MD Unavailable [phone] Itz Iyer MD Unavailable [phone] Itz Iyer MD Unavailable [phone] Itz Iyer MD Unavailable [phone] Itz Iyer MD Unavailable [phone] Itz Iyer MD Unavailable [phone] Danis Meza MINE ANALYST Unavailable [phone] Rater, Antonette MINE ANALYST Unavailable Ancieto Foley MD Unavailable [phone] Encounter Details Date Type Department Care Team (Late st Contact Info) Description 11/18/2016 Orders Only [facility] Provider, MD Katie [facility] [place] [address] Social History Tobacco Use Types Packs/Day Years Used Date Smoking Tobacco: Never Assessed Sex and Gender Information Value Date Recorded Sex Assigned at Not on file 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 Gender Identity Not on file Sexual [...] on filedocumented in this encounter Care Teams Blasting Entry Specialist Relationship Specialty Start Date End Date Fuentes Orellana MD PCP - General 11/28/16 Fuentes Orellana MD PCP - General 07/14/07 11/27/16 Itz Iyer MD [address] [facility] [address] [place] [id number] Consulting Physician Urology 05/31/18 Lupillo Davenport MD [address] [place] [address] Referring Physician Radiation Oncology 05/31/18 Lupillo Davenport MD [address] [place] [address] Referring Physician Radiation Oncology 05/31/18 Shawnee Mckinney MD [address] [facility] [address] [place] [address] Referring Physician Urology 06/03/18 Chicho Clayton MD [address] [facility] [address] [place] [address] Medical Oncologist/Hematologis t Medical Oncology 06/07/18 Newton Weeks MD [address] [facility] [address] [place] [address] Referring Physician Radiation Oncology 06/07/18 Maria Guadalupe Palacios, RN Registered Nurse 06/10/18 Lupillo Davenport MD [address] [place] [address] Referring Physician Radiation Oncology 06/16/18 Itz Iyer MD [address] [address] Consulting Physician Urology 06/17/18 06/17/18 Itz Iyer MD [address] [address] Consulting Physician Urology 06/18/18 06/18/18 Itz Iyer MD [address] [place] [address] Consulting Physician Urology 06/18/18 06/18/18 Itz Iyer MD [address] [place] [address] Consulting Physician Urology 06/22/18 06/22/18 Itz Iyer MD [address] [place] [address] Consulting Physician Urology 07/01/18 07/01/18 Itz Iyer MD [address] [place] [address] Consulting Physician Urology 07/06/18 07/06/18 Danis Meza NP [address] [place] [address] Nurse Practitioner Urology 10/06/22 Antonette Owens NP [address] [place] [address] Nurse Practitioner Cardiovascular Disease 10/06/22 Aniceto Foley MD [address] [place] [address] Surgeon Vascular Surgery 10/31/22 documented as of this encounter
--- OUTSIDE RECORDS SUMMARY | 2024-12-17 17:31 | XMS_ITS | Encounter Summary ---
Author Organization [facility] Address [address] [place] [address] Phone Care Team Providers Care Studio Couch Frame Builder Name Role Phone Fuentes Orellana MD Primary Care Provider [phone] Itz Iyer MD Unavailable [phone] Lupillo Davenport MD Unavailable [phone] Lupillo Davenport MD Unavailable [phone] Shawnee Mckinney MD Unavailable [phone] Chicho Clayton MD Unavailable Newton Weeks MD Unavailable Maria Guadalupe Palacios RN Unavailable Unava ilable Lupillo Davenport MD Unavailable [phone] Itz Iyer MD Unavailable [phone] Itz Iyer MD Unavailable [phone] Itz Iyer MD Unavailable [phone] Itz Iyer MD Unavailable [phone] Itz Iyer MD Unavailable [phone] Itz Iyer MD Unavailable [phone] Danis Meza STEWARD/STEWARDESS NIGHT Unavailable Antonette Owens STEWARD/STEWARDESS NIGHT Unavailable Aniceto Foley MD Unavailable [phone] Encounter Details Date Type Department Care [...] on file 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 Gender Identity Not on file Sexual Orientation [...] on filedocumented in this encounter Care Teams Studio Couch Frame Builder Relationship Specialty Start Date End Date Fuentes Orellana MD PCP - General 11/28/16 Itz Iyer MD [address] [facility] [address] [place] [address] Consulting Physician Urology 05/31/18 Lupillo Davenport MD [address] [place] [address] Referring Physician Radiation Oncology 05/31/18 Lupillo Davenport MD [address] [place] [address] Referring Physician Radiation Oncology 05/31/18 Shawnee Mckinney MD [address] [place] [address] Referring Physician Urology 06/03/18 Chicho Clayton MD [address] [facility] [address] [place] [address] Medical Oncologist/Hematologis t Medical Oncology 06/07/18 Newton Weeks MD [address] [facility] [address] [place] [address] Referring Physician Radiation Oncology 06/07/18 Maria Guadalupe Palacios, RN Registered Nurse 06/10/18 Lupillo Davenport MD [address] [place] [address] [place] [address] Referring Physician Radiation Oncology 06/16/18 Itz Iyer MD [address] [place] [address] Consulting Physician Urology 06/17/18 06/17/18 Itz Iyer MD [address] [address] Consulting Physician Urology 06/18/18 06/18/18 Itz Iyer MD [address] [address] Consulting Physician Urology 06/18/18 06/18/18 Itz Iyer MD [address] [place] [address] Consulting Physician Urology 06/22/18 06/22/18 Itz Iyer MD [address] [place] [address] Consulting Physician Urology 07/01/18 07/01/18 Itz Iyer MD [address] [place] [address] Consulting Physician Urology 07/06/18 07/06/18 Danis Meza NP [address] [place] [address] Nurse Practitioner Urology 10/06/22 Antonette Owens NP [address] [place] [address] Nurse Practitioner Cardiovascular Disease 10/06/22 Aniceto Foley MD [id number] [place] [address] Surgeon Vascular Surgery 10/31/22 documented as of this encounter
--- OUTSIDE RECORDS SUMMARY | 2024-12-17 17:31 | XMS_ITS | Encounter Summary ---
Author Organization [employer] Care Team Providers Care Renewable Energy Division Manager Name Role Phone Fuentes Orellana MD Primary Care Provider Brent Dickinson DO Unavailable [phone] Faviola Jiménez APRN, MOTION DESIGNER Unavailable Shawnee Mckinney MD Unavailable Chicho Clayton MD Unavailable Lai Lambert ACADEMIC RECORDS SPECIALIST, MOTION DESIGNER Unavailable [phone] Kami Meneses MD Unavailable [phone] Anette Bond MD Unavailable [phone] Kay Gordon APRN, MOTION DESIGNER Unavailable Kami Meneses MD Unavailable [phone] Encounter Details Date Type Department Care [...] 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 on file Not on file Not on cory e documented as of this encounter Plan of Treatment Upcoming Encounters Date Type Department Care Team (Late st Contact Info) Description 01/27/2025 9:45 AM CDT Office Visit [facility] [address] [place] [address] Kami Meneses MD [address] [address] documented as of this encounter Visit Diagnoses Not on filedocumented in this encounter Care Teams Renewable Energy Division Manager Relationship Specialty Start Date End Date Fuentes Orellana MD [address] [place] [address] PCP - General Family Medicine 07/06/15 Brent Dickinson DO [address] [place] [id number] Gastroenterology 06/27/16 Faviola Jiménez APRN, MOTION DESIGNER [address] [place] [address] Nurse Practitioner Advanced Practice Nurse 07/22/16 Shawnee Mckinney MD [address] [facility] [address] [place] [address] Urologist Urology 06/07/19 Chicho Clayton MD [address] [facility] [address] [place] [address] Oncology 06/13/19 Lai Lambert APRN, MOTION DESIGNER [address] [place] [address] Nurse Practitioner Advanced Practice Nurse 02/10/23 Kami Meneses MD [address] [facility] [address] [place] [address] Consulting Physician Urology 06/16/23 Anette Bond MD [address] [facility] [place] [address] Consulting Physician Gastroenterology 12/25/22 Kay Gordon APRN, MOTION DESIGNER [address] [place] [address] Nurse Practitioner Advanced Practice Nurse 06/16/24 Kami Meneses MD [address] [place] [address] Consulting Physician Urology 08/19/24 documented as of this encounter
--- OUTSIDE RECORDS SUMMARY | 2024-12-17 17:31 | XMS_ITS | CONTINUITY OF CARE DOCUMENT ---
Author Name malik gan Address Unknown Organization [facility] Address [address] [place] [address] [address] [place] [address] Phone [phone] Care Team Providers Care Network/Telecom Engineer Name Role Phone Dinh BARRERA, [facility] Unavailable
--- OUTSIDE RECORDS SUMMARY | 2024-12-17 17:31 | XMS_ITS | Clinical Summary ---
Author Organization Unknown Care Team Providers Care Cam Specialist Name Role Phone PRABHJOT ESCOBAR, KIRK Unavailable Mikey MARTIN RN, ABI Unavailable Unavailable LOIS RADIO DISC JOCKEY, RICARDA Unavailable Unavailable MARCE PT, YANET Unavailable Unavailable VICTOR MANUEL PRESSER COTTON GINNING, DAPHNE Unavailable Unavailpatricia PAGE OT, TAMIE Unavailable Unavailable Payers Payer Name Policy Type Policy Number Effective Date Expira tion Date MEDICARE.[facility] [id number] Problems Condition Name Condition Details Condition Category [...] 08-31 00:00: 00 ATHSCL HEART DISEASE OF [place] CORONARY ARTERY W/O ANG PCTRS Active 08-31 [...] SPECIFIED FUNCTIONAL IMPLANTS Active 08-31 00:00: 00 LONGTERM (CURRENT) USE OF ASPIRIN Active 08-31 00:00: [...] 325 mg tablet 11-09 00:00: 00 Yes [id number] PAIN 1 tablet DAILY 1 tablet DAILY (route: oral) Med Classific ation: Analgesic , Anti-infl ammatory or Antipyret ic sulfamethox azole 800 mg-trimetho prim 160 mg tablet 11-12 00:00: 00 11-19 23:59 :00 No [id number] PROPHYLATIC 1 tablet 2 TIMES DAILY 1 tablet 2 TIMES DAILY (route: oral) Med Classific ation: Anti-Infe ctive Agents metoprolol tartrate 25 mg tablet 11-03 00:00: 00 Yes [id number] HIGH BLOOD PRESSURE 1 tablet 2 TIMES DAILY 1 tablet 2 TIMES DAILY (route: oral) Med Classific ation: Cardiovas cular Therapy Agents rosuvastati n 40 mg tablet 11-02 00:00: 00 Yes [id number] CHOLESTEROL 1 tablet DAILY 1 tablet DAILY (route: oral) Med Classific ation: Cardiovas cular Therapy Agents Brilinta 60 mg tablet 11-12 00:00: 00 Yes [id number] BLOOD THINNER 1 tablet 2 TIMES DAILY 1 tablet 2 TIMES DAILY (route: oral) Med Classific ation: Hematolog ical Agents acetaminoph en 500 mg tablet 11-12 00:00: 00 Yes [id number] NEEDED FOR PAIN 1-5/10 ON A 1-10 SCALE OR FEVER GREATER THAN 100.1 2 tablet EVERY 6 HOURS 2 tablet EVERY 6 HOURS (route: oral) Med Classific ation: Analgesic , Anti-infl ammatory or Antipyret ic alendronate 70 mg tablet 11-12 00:00: 00 Yes [id number] OSTEOARTHRI TIS 1 tablet WEEKLY 1 tablet WEEKLY (route: oral) Med Classific ation: Endocrine allopurinol 300 mg tablet 11-12 00:00: 00 Yes [id number] GOUT 1 tablet DAILY 1 tablet DAILY (route: oral) Med Classific ation: Gout and Hyperuric emia Therapy alprazolam 0.25 mg tablet 11-12 00:00: 00 Yes [id number] NEEDED FOR ANXIETY 1 tablet 3 TIMES DAILY 1 tablet 3 TIMES DAILY (route: oral) Med Classific ation: Central Nervous System Agents amlodipine 5 mg tablet 11-12 00:00: 00 Yes [id number] HIGH BLOOD PRESSURE 1 tablet DAILY 1 tablet DAILY (route: oral) Med Classific ation: Cardiovas cular Therapy Agents cephalexin 500 mg capsule 11-12 00:00: 00 11-18 23:59 :00 No [id number] PROPHYLATIC 1 capsule 2 TIMES DAILY 1 capsule 2 TIMES DAILY (route: oral) Med Classific ation: Anti-Infe ctive Agents chlorthalid one 25 mg tablet 11-12 00:00: 00 Yes [id number] HIGH BLOOD PRESSURE 1 tablet DAILY 1 tablet DAILY (route: oral) Med Classific ation: Cardiovas cular Therapy Agents Kerendia 10 mg tablet 11-12 00:00: 00 Yes [id number] KIDNEY DISEASE 1 tablet DAILY 1 tablet DAILY (route: oral) Med Classific ation: Cardiovas cular Therapy Agents pantoprazol e 40 mg tablet,ingrid yed release 11-12 00:00: 00 Yes [id number] GASTROESOPH AGEAL REFULX DISEASE 1 tablet DAILY 1 tablet DAILY (route: oral) Med Classific ation: Gastroint estinal Therapy Agents telmisartan 80 mg tablet 11-12 00:00: 00 Yes [id number] HIGH BLOOD PRESSURE 1 tablet DAILY 1 tablet DAILY (route: oral) Med Classific ation: Cardiovas cular Therapy Agents Tradjenta 5 mg tablet 11-12 00:00: 00 Yes [id number] DIABETES 1 tablet DAILY 1 tablet DAILY (route: oral) Med Classific ation: Endocrine nitroglycer in 0.3 mg sublingual tablet 11-12 00:00: 00 Yes [id number] NEEDED FOR CHEST PAIN 1 tablet EVERY 5 MINUTES TIMES 3 1 tablet EVERY 5 MINUTES TIMES 3 (route: sublingual ) Med Classific ation: Cardiovas cular Therapy Agents glimepiride 1 mg tablet 12-13 00:00: 00 Yes [id number] DIABETES 1 mg 2 TIMES DAILY 1 mg 2 TIMES DAILY (route: oral) Alternate Route: BY MOUTH. Med Classific ation: Endocrine Gvoke 1 mg/0.2 mL subcutaneou s solution 12-13 00:00: 00 Yes [id number] LOW BLOOD SUGAR Per instruc tions NEEDED [...] RICK MD RN TO OBSERVE AND ASSESS, RADIO DISC JOCKEY/WOOD BOATBUILDER TO OBSERVE FOR RISK FOR FALLS AND INSTRUCT IN FALL PREVENTION, HOME SAFETY, MEDICATION MANAGEMENT, INFECTION PREVENTION, AND NUTRITION MANAGEMENT. RN/RADIO DISC JOCKEY/WOOD BOATBUILDER NURSE MAY PERFORM O2 SATURATION LEVEL ON ADMISSION, EVERY VISIT AND PRN FOR SHORTNESS OF BREATH FOR RN TO ASSESS/RADIO DISC JOCKEY TO OBSERVE PATIENT, WITH NOTIFICATION TO THE PHYSICIAN IF SATURATION IS 90% IN THE ABSENCE OF MORE SPECIFIC PARAMETERS FROM THE PHYSICIAN. AGENCY MAY PERFORM A RESUMPTION OF CARE VISIT FOLLOWING ANY HOSPITAL ADMISSION. RN/RADIO DISC JOCKEY/WOOD BOATBUILDER TO MONITOR CO-MORBID CONDITIONS LISTED ON THE PLAN OF CARE AND ANY NEW CONDITIONS THAT PRESENT THEMSELVES DURING THIS EPISODE TO IDENTIFY CHANGES AND INTERVENE TO MINIMIZE COMPLICATIONS. [code = RN TO OBSERVE, ASSESS, EVALUATE, AND DEVELOP AN INDIVIDUALIZED PLAN OF CARE. AGENCY MAY ACCEPT ORDERS FROM CONSULTING PHYSICIANS KRIK RICK MD RN TO OBSERVE AND ASSESS, RADIO DISC JOCKEY/WOOD BOATBUILDER TO OBSERVE FOR RISK FOR FALLS AND INSTRUCT IN FALL PREVENTION, HOME SAFETY, MEDICATION MANAGEMENT, INFECTION PREVENTION, AND NUTRITION MANAGEMENT. RN/RADIO DISC JOCKEY/WOOD BOATBUILDER NURSE MAY PERFORM O2 SATURATION LEVEL ON ADMISSION, EVERY VISIT AND PRN FOR SHORTNESS OF BREATH FOR RN TO ASSESS/RADIO DISC JOCKEY TO OBSERVE PATIENT, WITH NOTIFICATION TO THE PHYSICIAN IF SATURATION IS 90% IN THE ABSENCE OF MORE SPECIFIC PARAMETERS FROM THE PHYSICIAN. AGENCY MAY PERFORM A RESUMPTION OF CARE VISIT FOLLOWING ANY HOSPITAL ADMISSION. RN/RADIO DISC JOCKEY/WOOD BOATBUILDER TO MONITOR CO-MORBID CONDITIONS LISTED ON THE [...] OT EVALUATION] Future Scheduled Test MEDICATION MANAGEMENT; RN/RADIO DISC JOCKEY/WOOD BOATBUILDER TO REVIEW MEDICATIONS FOR INTERACTIONS, EFFECTIVENESS OF DRUG THERAPY, AND SIGNS/SYMPTOMS OF ADVERSE REACTIONS. MAY INSTRUCT AND REINFORCE MEDICATION TEACHING RELATED TO THE USE OF MEDICATIONS, DOSAGE, FREQUENCY, PURPOSE, SIDE EFFECTS, AND TO REPORT COMPLICATIONS. [code = MEDICATION MANAGEMENT; RN/RADIO DISC JOCKEY/WOOD BOATBUILDER TO REVIEW MEDICATIONS FOR INTERACTIONS, EFFECTIVENESS OF DRUG THERAPY, AND SIGNS/SYMPTOMS OF ADVERSE REACTIONS. MAY INSTRUCT AND REINFORCE MEDICATION TEACHING RELATED TO THE USE OF MEDICATIONS, DOSAGE, FREQUENCY, PURPOSE, SIDE EFFECTS, AND TO REPORT COMPLICATIONS.] Future Scheduled Test ANTICOAGUL ATION MANAGEMENT; RN TO ASSESS AND TEACH, RADIO DISC JOCKEY/WOOD BOATBUILDER TO OBSERVE/TEACH/MONITOR EFFECTIVENESS OF ANTICOAGULATION THERAPY. RN/RADIO DISC JOCKEY/WOOD BOATBUILDER TO INSTRUCT ON SIGNS AND SYMPTOMS OF BLEEDING/ADVERSE REACTIONS TO REPORT TO PHYSICIAN. RN/RADIO DISC JOCKEY/WOOD BOATBUILDER TO PERFORM PT/INR VIA VENIPUNCTURE OR COAGUCHECK PRN PHYSICIAN ORDERSS RN/RADIO DISC JOCKEY/WOOD BOATBUILDER TO FAX/CALL IN RESULTS TO PHYSICIAN TIMELY [code = ANTICOAGULATION MANAGEMENT; RN TO ASSESS AND TEACH, RADIO DISC JOCKEY/WOOD BOATBUILDER TO OBSERVE/TEACH/MONITOR EFFECTIVENESS OF ANTICOAGULATION THERAPY. RN/RADIO DISC JOCKEY/WOOD BOATBUILDER TO INSTRUCT ON SIGNS AND SYMPTOMS OF BLEEDING/ADVERSE REACTIONS TO REPORT TO PHYSICIAN. RN/RADIO DISC JOCKEY/WOOD BOATBUILDER TO PERFORM PT/INR VIA VENIPUNCTURE OR COAGUCHECK PRN PHYSICIAN ORDERSS RN/RADIO DISC JOCKEY/WOOD BOATBUILDER TO FAX/CALL IN RESULTS TO PHYSICIAN TIMELY ] Future Scheduled Test FALL REDUC TION MANAGEMENT; RN TO ASSESS AND OBSERVE, RADIO DISC JOCKEY/WOOD BOATBUILDER TO OBSERVE FALL RISK FACTORS AND EDUCATE PATIENT/CAREGIVER ON STRATEGIES TO MINIMIZE THE RISK OF FALLING. [code = FALL REDUCTION MANAGEMENT; RN TO ASSESS AND OBSERVE, RADIO DISC JOCKEY/WOOD BOATBUILDER TO OBSERVE FALL RISK FACTORS AND EDUCATE PATIENT/CAREGIVER ON STRATEGIES TO MINIMIZE THE RISK OF FALLING.] Future Scheduled Test GENITOURIN KEZIA MANAGEMENT; RN TO ASSESS AND TEACH, RADIO DISC JOCKEY/WOOD BOATBUILDER TO OBSERVE AND TEACH RELATED TO ALTERED GENITOURINARY STATUS TO MINIMIZE COMPLICATIONS AND REDUCE HOSPITALIZATION. [code = GENITOURINARY MANAGEMENT; RN TO ASSESS AND TEACH, RADIO DISC JOCKEY/WOOD BOATBUILDER TO OBSERVE AND TEACH RELATED TO ALTERED GENITOURINARY STATUS TO MINIMIZE COMPLICATIONS AND REDUCE HOSPITALIZATION.] Future Scheduled Test URINARY IN CONTINENCE MANAGEMENT; RN TO ASSESS AND TEACH, RADIO DISC JOCKEY/LVNTO OBSERVE AND TEACH MANAGEMENT OF URINARY INCONTINENCE. TEACH/INSTRUCT ON PREVENTING INFECTION AND SKIN BREAKDOWN. RN/RADIO DISC JOCKEY/WOOD BOATBUILDER MAY INSTRUCT IN BLADDER TRAINING PROGRAM INDICATED. [code = URINARY INCONTINENCE MANAGEMENT; RN TO ASSESS AND TEACH, RADIO DISC JOCKEY/LVNTO OBSERVE AND TEACH MANAGEMENT OF URINARY INCONTINENCE. TEACH/INSTRUCT ON PREVENTING INFECTION AND SKIN BREAKDOWN. RN/RADIO DISC JOCKEY/WOOD BOATBUILDER MAY INSTRUCT IN BLADDER TRAINING PROGRAM INDICATED.] Future Scheduled Test DIABETES M ANAGEMENT; RN TO ASSESS AND TEACH, WOOD BOATBUILDER/RADIO DISC JOCKEY TO OBSERVE AND TEACH INSTRUCTIONS OF DIABETIC CARE TO INCLUDE: DIET DIABETIC SKIN CARE, SIGNS AND SYMPTOMS OF HYPO/HYPERGLYCEMIA, PROPER ADMINISTRATION OF DIABETIC MEDICATION. RN/WOOD BOATBUILDER/RADIO DISC JOCKEY TO INSTRUCT ON DIABETIC FOOT CARE AND MONITOR FOR SKIN LESIONS ON LOWER EXTREMITIES. BLOOD GLUCOSE TESTING DAILY RN TO ASSESS AND TEACH, WOOD BOATBUILDER/RADIO DISC JOCKEY TO OBSERVE AND TEACH PATIENT/CAREGIVER ABILITY TO PERFORM AND RECORD BLOOD GLUCOSE TESTING ORDERED AND TO REPORT ABNORMAL FINDINGS TO PHYSICIAN. RN/WOOD BOATBUILDER/RADIO DISC JOCKEY MAY PERFORM BLOOD GLUCOSE TEST NEEDED. RN/WOOD BOATBUILDER/RADIO DISC JOCKEY TO REPORT TO PHYSICIAN BLOOD GLUCOSE READINGS GREATER THAN 300 OR LESS THAN 70 RN/WOOD BOATBUILDER/RADIO DISC JOCKEY TO INSTRUCT PATIENT ON IMPORTANCE OF HGBA1C MONITORING, KIDNEY FUNCTION TEST, EYE AND FOOT EXAMS. [code = DIABETES MANAGEMENT; RN TO ASSESS AND TEACH, WOOD BOATBUILDER/RADIO DISC JOCKEY TO OBSERVE AND TEACH INSTRUCTIONS OF DIABETIC CARE TO INCLUDE: DIET DIABETIC SKIN CARE, SIGNS AND SYMPTOMS OF HYPO/HYPERGLYCEMIA, PROPER ADMINISTRATION OF DIABETIC MEDICATION. RN/WOOD BOATBUILDER/RADIO DISC JOCKEY TO INSTRUCT ON DIABETIC FOOT CARE AND MONITOR FOR SKIN LESIONS ON LOWER EXTREMITIES. BLOOD GLUCOSE TESTING DAILY RN TO ASSESS AND TEACH, WOOD BOATBUILDER/RADIO DISC JOCKEY TO OBSERVE AND TEACH PATIENT/CAREGIVER ABILITY TO PERFORM AND RECORD BLOOD GLUCOSE TESTING ORDERED AND TO REPORT ABNORMAL FINDINGS TO PHYSICIAN. RN/WOOD BOATBUILDER/RADIO DISC JOCKEY MAY PERFORM BLOOD GLUCOSE TEST NEEDED. RN/WOOD BOATBUILDER/RADIO DISC JOCKEY TO REPORT TO PHYSICIAN BLOOD GLUCOSE READINGS GREATER THAN 300 OR LESS THAN 70 RN/WOOD BOATBUILDER/RADIO DISC JOCKEY TO INSTRUCT PATIENT ON IMPORTANCE OF HGBA1C MONITORING, KIDNEY FUNCTION TEST, EYE AND FOOT EXAMS.] Future Scheduled Test PAIN MANAG EMENT; RN TO ASSESS AND TEACH, WOOD BOATBUILDER/RADIO DISC JOCKEY TO OBSERVE AND TEACH AND PROVIDE EDUCATION ON PAIN MANAGEMENT TECHNIQUES. [code = PAIN MANAGEMENT; RN TO ASSESS AND TEACH, WOOD BOATBUILDER/RADIO DISC JOCKEY TO OBSERVE AND TEACH AND PROVIDE EDUCATION ON PAIN MANAGEMENT TECHNIQUES.] Future Scheduled Test RN/RADIO DISC JOCKEY/WOOD BOATBUILDER TO PERFORM/TEACH INCISION CARE TO SUPRAPUBIC AND PERINEUM AREA: KEEP CLEAN AND DRY. INSPECT DAILY. NO LOTIONS OR OINTMENTS TO INCISIONS. MAY SHOWER AND PAT INCISIONS DRY. LEAVE ADHESIVE INTACT. [code = RN/RADIO DISC JOCKEY/WOOD BOATBUILDER TO PERFORM/TEACH INCISION CARE TO SUPRAPUBIC AND PERINEUM AREA: KEEP CLEAN AND DRY. INSPECT DAILY. NO LOTIONS OR OINTMENTS TO INCISIONS. MAY SHOWER AND PAT INCISIONS DRY. LEAVE ADHESIVE INTACT. ] Future Scheduled Test PRN VISITS ; NUMBER OF RN/RADIO DISC JOCKEY/WOOD BOATBUILDER VISITS: 1 RN/RADIO DISC JOCKEY/WOOD BOATBUILDER TO PERFORM: ASSESSMENT AND EDUCATION FOR THE FOLLOWING REASONS: INTEGUMENTARY/INCISION COMPLICATIONS [code = PRN VISITS; NUMBER OF RN/RADIO DISC JOCKEY/WOOD BOATBUILDER VISITS: 1 RN/RADIO DISC JOCKEY/WOOD BOATBUILDER TO PERFORM: ASSESSMENT AND EDUCATION FOR THE FOLLOWING REASONS: INTEGUMENTARY/INCISION COMPLICATIONS] Future Scheduled Test RISK FOR H OSPITALIZATION; RN TO ASSESS/TEACH, WOOD BOATBUILDER/RADIO DISC JOCKEY TO OBSERVE/TEACH PATIENT/CAREGIVER ON RISK FOR HOSPITALIZATION/EMERGENCY ROOM VISITS, TEACH SIGNS AND SYMPTOMS THAT PUT PATIENT AT RISK, WHEN TO NOTIFY NURSE/PHYSICIAN OF COMPLICATIONS/DECLINE, AND WHEN TO CALL 911. [code = RISK FOR HOSPITALIZATION; RN TO ASSESS/TEACH, WOOD BOATBUILDER/RADIO DISC JOCKEY TO OBSERVE/TEACH PATIENT/CAREGIVER ON RISK FOR HOSPITALIZATION/EMERGENCY ROOM VISITS, TEACH SIGNS AND SYMPTOMS THAT PUT PATIENT AT RISK, WHEN TO NOTIFY NURSE/PHYSICIAN OF COMPLICATIONS/DECLINE, AND WHEN TO CALL 911.] Future Scheduled Test CARDIOVASC ULAR SYSTEM; RN TO ASSESS/TEACH, RADIO DISC JOCKEY/WOOD BOATBUILDER TO OBSERVE/TEACH RELATED TO ALTERED CARDIOVASCULAR STATUS TO MINIMIZE COMPLICATIONS AND REDUCE HOSPITALIZATION. [code = CARDIOVASCULAR SYSTEM; RN TO ASSESS/TEACH, RADIO DISC JOCKEY/WOOD BOATBUILDER TO OBSERVE/TEACH RELATED TO ALTERED CARDIOVASCULAR STATUS TO MINIMIZE COMPLICATIONS AND REDUCE HOSPITALIZATION.] Future Scheduled Test HYPERTENSI ON MANAGEMENT; RN TO ASSESS AND TEACH, RADIO DISC JOCKEY/WOOD BOATBUILDER TO OBSERVE AND TEACH WARNING SIGNS AND SYMPTOMS TO AVOID HOSPITALIZATION. [code = HYPERTENSION MANAGEMENT; RN TO ASSESS AND TEACH, RADIO DISC JOCKEY/WOOD BOATBUILDER TO OBSERVE AND TEACH WARNING SIGNS AND SYMPTOMS TO AVOID HOSPITALIZATION.] Future Scheduled Test URINARY MO LECULAR TESTING PROTOCOL UP TO 2 PRN RN/RADIO DISC JOCKEY/WOOD BOATBUILDER VISITS MAY BE PERFORMED FOR S/S OF UTI. RN TO ASSESS, RADIO DISC JOCKEY/WOOD BOATBUILDER TO OBSERVE INITIATION OF UTI PROTOCOL. RN/WOOD BOATBUILDER/RADIO DISC JOCKEY TO INSTRUCT PATIENT AND/OR CAREGIVER ON S/S OF UTI TO REPORT TO RN/WOOD BOATBUILDER/RADIO DISC JOCKEY IF NEW OR WORSENING SYMPTOMS. DRINK PLENTY OF WATER THROUGHOUT THE DAY TO MAINTAIN HYDRATION (UNLESS CONTRAINDICATED.) URINATE WHEN THE URGE IS FELT, DO NOT WAIT. WASH GENITALS DAILY. WIPE FROM FRONT TO BACK AFTER HAVING A BOWEL MOVEMENT. RN/WOOD BOATBUILDER/RADIO DISC JOCKEY TO OBTAIN MOLECULAR URINE TESTING BY OPTION 1 OR OPTION 2 RN/WOOD BOATBUILDER/RADIO DISC JOCKEY TO OBTAIN U/A WITH REFLEX TO UTI PANEL (MOLECULAR) VIA CLEAN CATCH URINE AND IF UNABLE TO OBTAIN MAY PERFORM AN IN AND OUT CATH. IF PATIENT HAS INDWELLING CATHETER MAY OBTAIN FROM SAMPLING PORT. RN/WOOD BOATBUILDER/RADIO DISC JOCKEY TO OBTAIN UTI PANEL (MOLECULAR) VIA SWAB COLLECTION METHOD FROM ADULT BRIEF/DIAPER OR PAD IF PATIENT IS INCONTINENT. NOTIFY PROVIDER OF RESULTS AND OBTAIN FURTHER ORDERS. [code = URINARY MOLECULAR TESTING PROTOCOL UP TO 2 PRN RN/RADIO DISC JOCKEY/WOOD BOATBUILDER VISITS MAY BE PERFORMED FOR S/S OF UTI. RN TO ASSESS, RADIO DISC JOCKEY/WOOD BOATBUILDER TO OBSERVE INITIATION OF UTI PROTOCOL. RN/WOOD BOATBUILDER/RADIO DISC JOCKEY TO INSTRUCT PATIENT AND/OR CAREGIVER ON S/S OF UTI TO REPORT TO RN/WOOD BOATBUILDER/RADIO DISC JOCKEY IF NEW OR WORSENING SYMPTOMS. DRINK PLENTY OF WATER THROUGHOUT THE DAY TO MAINTAIN HYDRATION (UNLESS CONTRAINDICATED.) URINATE WHEN THE URGE IS FELT, DO NOT WAIT. WASH GENITALS DAILY. WIPE FROM FRONT TO BACK AFTER HAVING A BOWEL MOVEMENT. RN/WOOD BOATBUILDER/RADIO DISC JOCKEY TO OBTAIN MOLECULAR URINE TESTING BY OPTION 1 OR OPTION 2 RN/WOOD BOATBUILDER/RADIO DISC JOCKEY TO OBTAIN U/A WITH REFLEX TO UTI PANEL (MOLECULAR) VIA CLEAN CATCH URINE AND IF UNABLE TO OBTAIN MAY PERFORM AN IN AND OUT CATH. IF PATIENT HAS INDWELLING CATHETER MAY OBTAIN FROM SAMPLING PORT. RN/WOOD BOATBUILDER/RADIO DISC JOCKEY TO OBTAIN UTI PANEL (MOLECULAR) VIA SWAB [...] 2025-01-12 00:00:00 Outpatient NEW ADMISSION ABI MARTIN [facility] [id number] 76.00
--- OUTSIDE RECORDS SUMMARY | 2024-12-17 17:31 | XMS_ITS | Clinical Summary ---
Author Organization [facility] Address [address] [place] [address] Phone Care Team Providers Care Patient Care Technician Instructor Name Role Phone Fuentes Orellana MD Primary Care Provider Allergies No known active allergies Medications pantoprazole [...] series) 2024 Medical Devices Implanted Type Area Log Feeder Device Identifier Shelf Expiration Date Model / Serial / Lot Ams 800 Urinary Control System(Penile Implant) Description:MRI conditional for 3T or less -danisha 01/04/19 Insurance MEDICARE PART A AND B [facility] [id number] Care Teams Patient Care Technician Instructor Relationship Specialty Start Date End Date Fuentes Orellana MD [address] [place] [address] PCP - General Family Practice 01/04/19
--- OUTSIDE RECORDS SUMMARY | 2024-12-17 17:31 | XMS_ITS | Clinical Summary ---
Author Organization [facility] Address [address] [place] [address] Care Team Providers Care Process Inspector Name Role Phone Fuentes Orellana MD Primary Care Provider [phone] Allergies No known active allergies Medications amLODIPine [...] age to complete this topic Insurance MEDICARE [facility] Care Teams Process Inspector Relationship Specialty Start Date End Date Fuentes Orellana MD [address] [place] [id number] PCP - General FAMILY PRACTICE 11/29/22
[2024-12-17 17:49] LABS: Add Urine Microscopic? YES; Appearance Urine Clear (Clear); Bacteria Urine None Seen /hpf; Bilirubin Urine Negative (Negative); Blood Urine Trace (Negative); Color Urine Yellow (Yellow); Glucose Urine UA Negative (Negative); Hyaline Casts Urine Present /lpf; Ketones Urine Negative (Negative); Leukocyte Esterase Ur Trace LEU/UL (Negative); Need Manual Microscopic Reviewed; Nitrate Urine Negative (Negative); Protein Urine 1+ mg/dL (Negative); RBC Urine 0-2 /hpf (0-2); Squamous Epithelial Cell Urine Occasional /hpf (Few); Urobilinogen Urine 0.2 mg/dL (<2.0)
[2024-12-17 17:53] LABS: Renal Epithelial Cells Urine Few /hpf (None Seen)
[2024-12-17 17:58] LABS: Basophils Percent Auto 0.5 % (0.2-1.2); Eosinophils Absolute Auto 0.1 K/mm3 (0-0.3); Eosinophils Percent Auto 1.3 % (0-4.4); Hematocrit 32.8 % (42.0-52.0); Hemoglobin 10.6 g/dL (14.0-18.0); Immature Granulocyte Absolute 0.05 K/mm3 (0.00-0.031); Immature Granulocyte Percent A 0.6 % (0-0.5); Lymphocytes Absolute Auto 1.53 K/mm3 (0.9-3.2); Lymphocytes Percent Auto 19.5 % (18.3-44.2); Mean Corpuscular HGB Conc 32.3 g/dl (32-36); Mean Corpuscular Hemoglobin 30.5 pg (26-34); Mean Corpuscular Volume 94.5 fl (80-100); Mean Platelet Volume 10.6 fl (7.4-10.4); Monocytes Absolute Auto 0.5 K/mm3 (0.1-0.6); Monocytes Percent Auto 6.6 % (2.6-8.5); Neutrophils Absolute Auto 5.6 K/mm3 (1.3-6.7); Neutrophils Percent Auto 71.5 % (45.5-73.1); Platelet Count Result 169 k/mm3 (150-375); Red Blood Count 3.47 M/mm3 (4.6-6.20); Red Cell Distribution Width 14.7 % (11.5-14.5); White Blood Count 7.8 K/mm3 (4.5-10.0)
[2024-12-17 18:04] VITALS: BP 157/45; PULSE 78; RESP 16; TEMP 36.6; O2SAT 100
[2024-12-17 18:09] LABS: Alanine Aminotransferase 22 U/L (6-50); Alkaline Phosphatase 78 U/L (38-126); Anion Gap 9 mmol/L (4-12); Aspartate Amino Transferase 29 U/L (17-59); Bilirubin,Total 0.4 mg/dL (0.2-1.3); Blood Urea Nitrogen 38 mg/dL (9-20); Calcium 10.4 mg/dL (8.4-10.2); Carbon Dioxide 23 mmol/L (22-30); Chloride 107 mmol/L (98-107); Estimated CRCL calculation 29 ml/min; Estimated Glomerular Filt Rate 40; Glucose 188 mg/dL (65-110); Sodium 139 mmol/L (137-145)
--- NOTE | 2024-12-17 19:25 | PC.NURSE ---
silviano received from BARAK Hui. Assumed care of patient at this time.
[2024-12-17 20:14] VITALS: BP 186/68; PULSE 70; RESP 18; O2SAT 100
--- NOTE | 2024-12-17 20:16 | PC.NURSE ---
Patient c/o pain, ERP notified verbal orders received.
[2024-12-17] MEDS: ONDANSETRON INJ 4 MG/2 ML VIAL IV PUSH (20:27)
[2024-12-17] MEDS: MORPHINE SULFATE (*CRX) 2 MG/ML INJ IV PUSH (20:27)
[2024-12-17 21:02] VITALS: BP 124/57; PULSE 76; RESP 18; O2SAT 100
== END 2024-12-17 21:06 | disposition home or self-care (01) ==
PROVIDERS: Emergency Provider Emergency Medicine; PCP Family Medicine
DX: N30.90 Cystitis, unspecified without hematuria (principal); Z79.82 Long term (current) use of aspirin; I10 Essential (primary) hypertension; Z85.46 Personal history of malignant neoplasm of prostate; E11.42 Type 2 diabetes mellitus with diabetic polyneuropathy; E78.5 Hyperlipidemia, unspecified; I25.10 Atherosclerotic heart disease of native coronary artery without angina pectoris; H40.9 Unspecified glaucoma; Z87.891 Personal history of nicotine dependence
CPT/HCPCS: 36415; 74177; 80053; 81001; 85025; 87086; 87186; 96365; 96375; 99284; J0696; J2270; J2405; Q9967

== ENCOUNTER 2024-12-27 10:03 | Outpatient (CLI) | payer MEDICARE, SELFPAY ==
[2024-12-27 10:51] LABS: Prothrombin Time 13.6 Seconds (11.1-14.7)
[2024-12-27 10:52] LABS: Partial Thromboplastin Time 25.6 Seconds (22.3-36.8)
--- OUTSIDE RECORDS SUMMARY | 2024-12-27 11:22 | XMS_ITS | Clinical Summary ---
Author Organization [facility] Address [address], [facility] [address] [place] [address] Phone Care Team Providers Care C Consultant Name Role Phone Fuentes Orellana MD Primary Care Provider Brent Dickinson DO Unavailable [phone] Faviola Jiménez MUSIC THERAPY SPECIALIST, COMPUTER HARDWARE DEVELOPER Unavailable Shawnee Mckinney MD Unavailable Chicho Clayton MD Unavailable Lai Lambert MUSIC THERAPY SPECIALIST, COMPUTER HARDWARE DEVELOPER Unavailable [phone] Kami Meneses MD Unavailable [phone] Anette Bond MD Unavailable [phone] Kay Gordon MUSIC THERAPY SPECIALIST, COMPUTER HARDWARE DEVELOPER Unavailable Kami Meneses MD Unavailable [phone] Allergies No known active allergies Medications [...] Take 25 mg by mouth. 3 Active Kerendia 10 MG Tablet Take 1 [...] (GLUCAGON EMERGENCY IJ) by Injection route. Active ciprofloxacin (CIPRO) 500 MG Tablet take 1 tablet by mouth every 12 hours 5 Active pentoxifylline (TRENtal) 400 MG Tablet Controlled Release Take 400 mg by mouth. 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 Iron deficiency anemia 02/15/2020 Collagenous colitis 07/22/2016 Gastroesophageal reflux disease 07/22/2016 Hx of colonic polyps 07/22/2016 Encounters Date Type Department Care Team Description 12/23/2024 9:00 AM CDT Office Visit [facility] [place] [address] Kami Meneses MD UTI symptoms (Primary Dx) Discharge Disposition: Discharged to home or Selfcare 12/23/2024 Travel 12/21/2024 Telephone [facility] [address] [place] [address] Kami Meneses MD Testicle Pain 12/16/2024 10:45 AM CDT [facility] [place] [address] Kami Meneses MD Stress incontinence (female) (male) (Primary Dx) Discharge Disposition: Discharged to home or Selfcare 12/16/2024 Telephone [facility] [address] [facility] [place] [address] Kami Meneses MD 12/16/2024 Travel 10/26/2024 Telephone [facility] [address] [place] [address] Kami Meneses MD Pre-surgical question from Last 3 Months Immunizations Immunization Administration [...] Job 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 Date 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 on file Not on file Not on cory e Last Filed Vital Signs Vital Sign Reading Time Taken Comments Blood Pressure 154/64 12/23/2024 9:15 AM CDT Pulse 69 12/23/2024 9:15 AM CDT Temperature 36.4 C (97.6 F) 08/10/2024 9:53 AM ENGINEERING MGR Respiratory Rate 16 12/23/2024 9:15 AM CDT Oxygen Saturation 97% 12/23/2024 9:15 AM CDT Inhaled Oxygen Concentration - - Weight 72.6 kg (160 lb) 12/23/2024 9:15 AM CDT Height 162.6 cm (5' 4 ) 12/23/2024 9:15 AM CDT Body Mass Index 27.46 12/23/2024 9:15 AM CDT Plan of Treatment Upcoming Encounters Date Type Department Care Team (Late st Contact Info) Description 01/10/2025 1:30 PM CDT Office Visit [facility] [address] [place] [address] Kami Meneses MD [address], [address] [address] Health Maintenance Due Date Last Done Comments [...] Date/Time Associated Diagnosis Comments CULTURE, URINE Routine 12/23/2024 10:48 AM CDT UTI symptoms COLONOSCOPY Routine 05/24/2020 from Last 3 Months or Most Recently Relevant to Health Maintenance Results * CULTURE, URINE (12/23/2024 10:48 AM CDT) CULTURE RESULTS No growth final 12/25/2024 11:36 PM CDT [facility] Culture (Pre-Op Catheter) Non-Phlebotomy Collection / Unknown 12/23/2024 10:48 AM CDT 12/23/2024 10:48 AM CDT us Kami Gleason MD MICROBIOLOGY - GENERAL ORDERAB LES Final Result [facility] [address] [place] [address], * COLONOSCOPY (05/24/2020) us Brent Dickinson DO PROCEDURE/MINOR SURGICAL ORDERA BLES Final Result from Last 3 Months or Most Recently Relevant to Health Maintenance Insurance MEDICARE [employer] Care Teams C Consultant Relationship Specialty Start Date End Date Fuentes Orellana MD [address] [place] [address] PCP - General Family Medicine 07/06/15 Brent Dickinson DO [address] [place] [address] Gastroenterology 06/27/16 Faviola Jiménez APRN, COMPUTER HARDWARE DEVELOPER [address] [place] [address] Nurse Practitioner Advanced Practice Nurse 07/22/16 Shawnee Mckinney MD [address] [facility] [address] [place] [address] Urologist Urology 06/07/19 Chicho Clayton MD [address] [facility] [address] [place] [address] Oncology 06/13/19 Lai Lambert APRN, COMPUTER HARDWARE DEVELOPER [address] [place] [address] Nurse Practitioner Advanced Practice Nurse 02/10/23 Kami Meneses MD [address] [address] Consulting Physician Urology 06/16/23 Anette Bond MD [address] [place] [address] Consulting Physician Gastroenterology 12/25/22 Kay Gordon APRN, COMPUTER HARDWARE DEVELOPER [address] [place] [address] Nurse Practitioner Advanced Practice Nurse 06/16/24 Kami Meneses MD [address] [address] Consulting Physician Urology 08/19/24
--- OUTSIDE RECORDS SUMMARY | 2024-12-27 11:22 | XMS_ITS | Encounter Summary ---
Author Organization [facility] Address [address] [facility] [place] [place] [address] Phone Care Team Providers Care Plate Cutter Name Role Phone Fuentes Orellana MD Primary Care Provider [phone] Brent Dickinson DO Unavailable [phone] Faviola Jiménez SPLITTER MACHINE, FINANCIAL WRITER Unavailable Shawnee Mckinney MD Unavailable Chicho Clayton MD Unavailable Lai Lambert SPLITTER MACHINE, FINANCIAL WRITER Unavailable Kami Meneses MD Unavailable [phone] Anette Bond MD Unavailable [phone] Kay Gordon APRN, FINANCIAL WRITER Unavailable Kami Meneses MD Unavailable [phone] Reason for Visit * Reason Comments Medication Refill Encounter Details Date Type Department Care Team (Late st Contact Info) Description 03/25/2021 Refill [facility] - [place] [address] [place] [id number] Ingrid Mccloud Ashley, PAC [address] [place] [address] Medication Refill Social History Tobacco Use Types [...] Job 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 Date 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 difficile Rule-Out 04/10/2021 04/10/20212020 12:16 AM CDT documented as of this encounter Care Teams Plate Cutter Relationship Specialty Start Date End Date Fuentes Orellana MD [address] [place] [address] PCP - General Family Medicine 07/06/15 Brent Dickinson DO [address] [facility] [place] [address] Gastroenterology 06/27/16 Faviola Jiménez APRN, FINANCIAL WRITER [address] [place] [address] Nurse Practitioner Advanced Practice Nurse 07/22/16 Shawnee Mckinney MD [address] [facility] [address] [place] [address] Urologist Urology 06/07/19 Chicho Clayton MD [address] [facility] [address] [place] [address] Oncology 06/13/19 Lai Lambert APRN, FINANCIAL WRITER [address] [place] [address] Nurse Practitioner Advanced Practice Nurse 02/10/23 Kami Meneses MD [address] [address] Consulting Physician Urology 06/16/23 Anette Bond MD [address] [place] [address] Consulting Physician Gastroenterology 12/25/22 Kay Gordon APRN, HODAN [address] [place] [address] Nurse Practitioner Advanced Practice Nurse 06/16/24 Kami Meneses MD [address] [address] Consulting Physician Urology 08/19/24 documented as of this encounter
--- OUTSIDE RECORDS SUMMARY | 2024-12-27 11:22 | XMS_ITS | Encounter Summary ---
Author Organization [facility] Address [address] [place] [address] Phone Care Team Providers Care Salt Miner Name Role Phone Fuentes Orellana MD Primary Care Provider Bretn Dickinson DO Unavailable [phone] Faviola Jiménez BILL CHECKER, ROBOTIC WELD TECHNICIAN Unavailable Shawnee Mckinney MD Unavailable Chicho Clayton MD Unavailable Lai Lambert BILL CHECKER, ROBOTIC WELD TECHNICIAN Unavailable Kami Meneses MD Unavailable [phone] Anette Bond MD Unavailable [phone] Kay Gordon BILL CHECKER, ROBOTIC WELD TECHNICIAN Unavailable Kami Meneses MD Unavailable [phone] Encounter Details Date Type Department Care Team (Late st Contact Info) Description 12/16/2024 Telephone [facility] [address] [place] [address] Kami Meneses MD [address] [address] Social History Tobacco Use Types Packs/Day Years [...] 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 Date 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 Chicho Clayton at [facility] for prostate. * Telephone Encounter - Kami Meneses MD - 12/16/2024 11:45 AM CDT Can you ask the patient who follows him for his prostate cancer? documented in this encounter Plan of Treatment Upcoming Encounters Date Type Department Care Team (Late st Contact Info) Description 01/10/2025 1:30 PM CDT Office Visit [facility] [address] [place] [address] Kami Meneses MD [address] [address] documented as of this encounter Visit Diagnoses Not on filedocumented in this encounter Care Teams Salt Miner Relationship Specialty Start Date End Date Fuentes Orellana MD [address] [place] [address] PCP - General Family Medicine 07/06/15 Brent Dickinson DO [address] [facility] [place] [address] Gastroenterology 06/27/16 Faviola Jiménez APRN, ROBOTIC WELD TECHNICIAN [address] [facility] [place] [address] Nurse Practitioner Advanced Practice Nurse 07/22/16 Shawnee Mckinney MD [address] [facility] [address] [place] [address] Urologist Urology 06/07/19 Chicho Clayton MD [address] [facility] [address] [place] [address] Oncology 06/13/19 Lai Lambert APRN, ROBOTIC WELD TECHNICIAN [address] [place] [address] Nurse Practitioner Advanced Practice Nurse 02/10/23 Kami Meneses MD #[address] [address] Consulting Physician Urology 06/16/23 Anette Bond MD [address] [place] [address] Consulting Physician Gastroenterology 12/25/22 Kay Gordon APRN, ROBOTIC WELD TECHNICIAN [address] [place] [address] Nurse Practitioner Advanced Practice Nurse 06/16/24 Kami Meneses MD #[address] [address] Consulting Physician Urology 08/19/24 documented as of this encounter
--- OUTSIDE RECORDS SUMMARY | 2024-12-27 11:22 | XMS_ITS ---
Author Organization [facility] [address] Address [address] [place] [address] Care Team Providers Care Air Cargo Specialist Name Role Phone Fuentes Orellana MD Primary Care Provider [phone] Itz Iyer MD Unavailable [phone] Shawnee Mckinney MD Unavailable [phone] Chicho Clayton MD Unavailable Maria Guadalupe Palacios RN Unavailable Unava ilable Lupillo Davenport MD Unavailable [phone] Danis Meza HEAD MVA REACTOR OPERATOR Unavailable Antonette Owens NP Unavailable Aniceto Foley MD Unavailable [phone] Active Problems Problem Noted Date Diagnosed [...] (10/21/2022): Added automatically from request for surgery [id number] Assessment & Plan (10/30/2022 2:56 PM MANAGER WOMEN): - OR 3/2 for planned R CEA - OU status, Q2h NV/VS monitoring - Bedrest today, OOB/PT POD #1 - SBP goal 100-160, nicardipine for elevated BP - Continue aspirin and statin - Plan to stager home medications and resume overnight Atherosclerosis of [place] ar teries of extremities with intermittent claudication, bilateral legs 06/03/2022 Melanoma 01/10/2021 Anxiety 01/10/2021 DM (diabetes mellitus) 01/10/2021 Assessment & Plan (10/30/2022 9:59 AM MANAGER WOMEN): - A1c 7.6% 10/2022 - SSI while inpatient - CC diet when eating Elevated left ventricular end-diastolic pressure (LVEDP) 11/15/2019 Encounter for surgical after care following surgery of circulatory system 05/20/2019 Prostate cancer 09/10/2018 Assessment & Plan (10/27/2018 9:53 AM MANAGER WOMEN): Follows with urology, has his PSA monitored it is increasing, but still WNL 1.4 Assessment & Plan (09/22/2018 11:35 AM MANAGER WOMEN): Has close follow up with his oncologist. His PSA was slightly elevated on last check. Hyperlipidemia 09/21/2017 Assessment & Plan (06/30/2018 9:38 AM CDT): His last lipid panel was within acceptable range; he will continue on a high intensity statin. Assessment & Plan (09/21/2017 11:34 AM MANAGER WOMEN): Continue Lipitor 40 mg daily. Essential hypertension 07/20/2017 Assessment & Plan (10/30/2022 2:57 PM MANAGER WOMEN): - Tight BP goals post-procedure - Continue home medications as indicated by BP goals as above, staggering overnight for gentle BP control Assessment & Plan (10/27/2018 9:54 AM MANAGER WOMEN): Hypertension is unchanged. Dietary sodium restriction. Blood pressure will be reassessed in 4 weeks. Assessment & Plan (09/22/2018 11:38 AM MANAGER WOMEN): Hypertension remains elevated. He is increasing his [...] today Assessment & Plan (09/21/2017 11:33 AM MANAGER WOMEN): Blood pressure is well controlled today. Last visit we added HCTZ 12.5 mg daily. Continue current medications Assessment & Plan (08/10/2017 11:26 AM MANAGER WOMEN): Blood pressure is not controlled. Add hydrochlorothiazide 12.5 mg p.o. daily. He is compliant with medications but always add salt to food which I advised him not to do that. Assessment & Plan (07/20/2017 9:19 AM MANAGER WOMEN): Blood pressure remains uncontrolled. We will order renal Doppler ultrasound to rule out renal artery stenosis given the fact that he has peripheral vascular disease and coronary artery disease. I will increase amlodipine from 5-10 mg p.o. daily. If that does not control the blood pressure we will add hydrochlorothiazide 12.5 mg p.o. Daily. Coronary artery disease invo lving [place] coronary artery of [place] heart without angina pectoris 07/20/2017 Assessment & Plan (10/30/2022 9:58 AM MANAGER WOMEN): - Continue home medications as able - Maintained on Brilinta as an outpatient; held 1 week prior to OR - Will discuss with surgery team when to safely resume post-procedure Assessment & Plan (10/27/2018 9:59 AM MANAGER WOMEN): Coronary artery disease is improving with lifestyle modifications. Continue current treatment regimen. Cardiac status will be reassessed in 3 months. No chest pain. Minimal SOB. Continue asa, statin, brilinta Assessment & Plan (09/22/2018 11:36 AM MANAGER WOMEN): Coronary artery disease is unchanged. Regular aerobic [...] BB. Assessment & Plan (09/21/2017 11:33 AM MANAGER WOMEN): Continue aspirin, Brilinta, Toprol XL and atorvastatin. Assessment & Plan (08/10/2017 11:27 AM MANAGER WOMEN): Continue Brilinta and aspirin. Asymptomatic. Assessment & Plan (07/20/2017 9:19 AM MANAGER WOMEN): Continue aspirin, Brilinta, Lipitor , metoprolol PVD (peripheral vascular disease) 07/20/2017 Assessment & Plan (10/27/2018 9:21 AM MANAGER WOMEN): S/P bilateral ALVA angioplasty; right EIA angioplasty/stent 11/21/14. S/P aortoiliac angioplasty/stent 05/28/09. Continues on asa, statin and brilinta Assessment & Plan (09/21/2017 11:34 AM MANAGER WOMEN): He follows up with vascular surgery at [facility] Assessment & Plan (08/10/2017 11:27 AM MANAGER WOMEN): Renal ultrasound suggest more than 60% stenosis in the right renal artery and infrarenal stenosis 50-70%. He follows up with Dr. Foley from vascular surgery at [facility] Assessment & Plan (07/20/2017 9:20 AM MANAGER WOMEN): Patient will follow up with Dr. Foley [...] 02/09/2019 Assessment & Plan (10/27/2018 10:17 AM MANAGER WOMEN): Persistent dizziness. Has stopped caffeine intake. Has [...] implant or graft 6 02/09/2019 Atherosclerosis of [place] artery of extremity 04/15/20 16 02/09/2019 Assessment & Plan (09/22/2018 11:26 AM MANAGER WOMEN): 80% circumflex s/p RICHARD. 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 {plan; hypertension for POC:[id number]} Blood pressure will be reassessed {plan; follow-up 2 weeks/4weeks/3months:[id number]}. Increase amolodipine to 10 mg Continue all [...]
--- OUTSIDE RECORDS SUMMARY | 2024-12-27 11:22 | XMS_ITS | CONTINUITY OF CARE DOCUMENT ---
Author Name malik gan Address Unknown Organization [facility] Address [address] [place] [address] [address] [place] [address] Phone [phone] Care Team Providers Care Shoe Cobbler Name Role Phone Dinh BARRERA, [facility] Unavailable
--- OUTSIDE RECORDS SUMMARY | 2024-12-27 11:22 | XMS_ITS | Referral Summary ---
Author Organization [facility] [address] [facility] [address] Address [address] [place] [address] Care Team Providers Care [employer] System Operator Name Role Phone Fuentes Orellana MD Primary Care Provider Itz Iyer MD Unavailable [phone] Shawnee Mckinney MD Unavailable [phone] Chicho Clayton MD Unavailable Maria Guadalupe Palacios RN Unavailable Unava ilable Lupillo Davenport MD Unavailable [phone] Danis Meza WHOLESALE AND RETAIL MERCHANT Unavailable Antonette Owens NP Unavailable Aniceto Foley MD Unavailable Encounters Date Type Department Care Team Description 12/09/2024 1:00 PM CDT Office Visit [facility] Cardiology [address] [place] [address] Kay Ward NP 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 (Primary Dx); Orthostatic hypotension; LVH (left ventricular hypertrophy); PVD (peripheral vascular disease); Preoperative cardiovascular examination 11/09/2024 5:14 AM CDT - 11/12/2024 2:30 PM CDT Hospital Encounter [id number] [place] [address] Kami Meneses MD Intrinsic urethral sphincter deficiency (Primary Dx) Discharge Disposition: Discharge to home, home health skilled care 11/10/2024 Telephone [facility] Home Care Services [address] [place] [address] [address] [place] [address] Gregor Cheryl 11/09/2024 7:30 AM CDT - 11/09/2024 10:00 AM CDT Surgery [facility] Operating Room [address] [place] [phone] Kami Meneses MD Cystoscopy 11/09/2024 7:30 AM CDT Anesthesia Event [facility] Operating Room [address] [place] [phone] Lai Gregg DO [place], Justin Kyle, CRNA 10/26/2024 12:45 PM CORPORATE TRUST OFFICER Pre-Admission Testing [facility] Pre Anesthesia Testing [address] [place] [phone] Stress incontinence 10/20/2024 10:30 AM CORPORATE TRUST OFFICER Office Visit [facility] Cardiology [address] [facility] [address] [place] [phone] Kay Ward NP 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 (Primary Dx); Preoperative cardiovascular examination; Orthostatic hypotension; LVH (left ventricular hypertrophy); PVD (peripheral vascular disease) 10/13/2024 Telephone [facility] Cardiology [address] [place] [address] [address] [place] [phone] Mariangel Palmer MD cardiac clearance from Last 3 Months Allergies No known [...] immediate release tabletIndicatio ns:Coronary artery disease involving tejon coronary artery of tejon heart without angina pectoris Take 1 tablet [...] (10/21/2022): Added automatically from request for surgery [id number] Assessment & Plan (10/30/2022 2:56 PM CORPORATE TRUST OFFICER): - OR 3/2 for planned R CEA - OU status, Q2h NV/VS monitoring - Bedrest today, OOB/PT POD #1 - SBP goal 100-160, nicardipine for elevated BP - Continue aspirin and statin - Plan to stager home medications and resume overnight Atherosclerosis of tejon ar teries of extremities with intermittent claudication, bilateral legs 06/03/2022 Melanoma 01/10/2021 Anxiety 01/10/2021 DM (diabetes mellitus) 01/10/2021 Assessment & Plan (10/30/2022 9:59 AM CORPORATE TRUST OFFICER): - A1c 7.6% 10/2022 - SSI while inpatient - CC diet when eating Elevated left ventricular end-diastolic pressure (LVEDP) 11/15/2019 Encounter for surgical after care following surgery of circulatory system 05/20/2019 Prostate cancer 09/10/2018 Assessment & Plan (10/27/2018 9:53 AM CORPORATE TRUST OFFICER): Follows with urology, has his PSA monitored it is increasing, but still WNL 1.4 Assessment & Plan (09/22/2018 11:35 AM CORPORATE TRUST OFFICER): Has close follow up with his oncologist. His PSA was slightly elevated on last check. Hyperlipidemia 09/21/2017 Assessment & Plan (06/30/2018 9:38 AM CDT): His last lipid panel was within acceptable range; he will continue on a high intensity statin. Assessment & Plan (09/21/2017 11:34 AM CORPORATE TRUST OFFICER): Continue Lipitor 40 mg daily. Essential hypertension 07/20/2017 Assessment & Plan (10/30/2022 2:57 PM CORPORATE TRUST OFFICER): - Tight BP goals post-procedure - Continue home medications as indicated by BP goals as above, staggering overnight for gentle BP control Assessment & Plan (10/27/2018 9:54 AM CORPORATE TRUST OFFICER): Hypertension is unchanged. Dietary sodium restriction. Blood pressure will be reassessed in 4 weeks. Assessment & Plan (09/22/2018 11:38 AM CORPORATE TRUST OFFICER): Hypertension remains elevated. He is increasing his [...] today Assessment & Plan (09/21/2017 11:33 AM CORPORATE TRUST OFFICER): Blood pressure is well controlled today. Last visit we added HCTZ 12.5 mg daily. Continue current medications Assessment & Plan (08/10/2017 11:26 AM CORPORATE TRUST OFFICER): Blood pressure is not controlled. Add hydrochlorothiazide 12.5 mg p.o. daily. He is compliant with medications but always add salt to food which I advised him not to do that. Assessment & Plan (07/20/2017 9:19 AM CORPORATE TRUST OFFICER): Blood pressure remains uncontrolled. We will order renal Doppler ultrasound to rule out renal artery stenosis given the fact that he has peripheral vascular disease and coronary artery disease. I will increase amlodipine from 5-10 mg p.o. daily. If that does not control the blood pressure we will add hydrochlorothiazide 12.5 mg p.o. Daily. Coronary artery disease invo lving tejon coronary artery of tejon heart without angina pectoris 07/20/2017 Assessment & Plan (10/30/2022 9:58 AM CORPORATE TRUST OFFICER): - Continue home medications as able - Maintained on Brilinta as an outpatient; held 1 week prior to OR - Will discuss with surgery team when to safely resume post-procedure Assessment & Plan (10/27/2018 9:59 AM CORPORATE TRUST OFFICER): Coronary artery disease is improving with lifestyle modifications. Continue current treatment regimen. Cardiac status will be reassessed in 3 months. No chest pain. Minimal SOB. Continue asa, statin, brilinta Assessment & Plan (09/22/2018 11:36 AM CORPORATE TRUST OFFICER): Coronary artery disease is unchanged. Regular aerobic [...] BB. Assessment & Plan (09/21/2017 11:33 AM CORPORATE TRUST OFFICER): Continue aspirin, Brilinta, Toprol XL and atorvastatin. Assessment & Plan (08/10/2017 11:27 AM CORPORATE TRUST OFFICER): Continue Brilinta and aspirin. Asymptomatic. Assessment & Plan (07/20/2017 9:19 AM CORPORATE TRUST OFFICER): Continue aspirin, Brilinta, Lipitor , metoprolol PVD (peripheral vascular disease) 07/20/2017 Assessment & Plan (10/27/2018 9:21 AM CORPORATE TRUST OFFICER): S/P bilateral ALVA angioplasty; right EIA angioplasty/stent 11/21/14. S/P aortoiliac angioplasty/stent 05/28/09. Continues on asa, statin and brilinta Assessment & Plan (09/21/2017 11:34 AM CORPORATE TRUST OFFICER): He follows up with vascular surgery at [facility] Assessment & Plan (08/10/2017 11:27 AM CORPORATE TRUST OFFICER): Renal ultrasound suggest more than 60% stenosis in the right renal artery and infrarenal stenosis 50-70%. He follows up with Dr. Foley from vascular surgery at [facility] Assessment & Plan (07/20/2017 9:20 AM CORPORATE TRUST OFFICER): Patient will follow up with Dr. Foley from vascular surgery. He does have some claudication when he walks. Intrinsic urethral sphincter deficiency 06/08/20 15 Resolved Problems Problem Noted Date Diagnosed Date Resolved Date Dizzinesses 10/27/2018 02/09/2019 Assessment & Plan (10/27/2018 10:17 AM CORPORATE TRUST OFFICER): Persistent dizziness. Has stopped caffeine intake. Has [...] implant or graft 6 02/09/2019 Atherosclerosis of tejon artery of extremity 04/15/20 16 02/09/2019 Assessment & Plan (09/22/2018 11:26 AM CORPORATE TRUST OFFICER): 80% circumflex s/p RICHARD. Moderate 30 % LAD with bridging Impotence of organic origin 09/18/2015 02/09/2019 Urinary tract infection 01/18/201501/29 Incontinence 01/18/2015 02/09/2019 Stricture, urethra 07/31/2011 9 Overview (12/10/2017): Description: Dilation 06/09/11 Nocturia 11/28/2010 02/09/2019 Hypertension 05/16/2009 02/09/2019 Assessment & Plan (10/27/2018 10:11 AM CORPORATE TRUST OFFICER): Hypertension is {improving/stable/worsenin}. {plan; hypertension for POC:2415086590} Blood pressure will be reassessed {plan; follow-up 2 weeks/4weeks/3months:[id number]}. Increase amolodipine to 10 mg Continue all [...] drink = 0.6 oz pu re alcohol) [facility] Utilities Answer Date Recorded In the past 12 months has [employer], gas, oil, or water [employer] threatened to shut off services in your [...] often do you attend chur ch or mormonism services? More than 4 times per year 11/11/2024 Do you belong to any clubs o r organizations such as tenriism groups, unions, fraternal or athletic groups, or [...] any time in the past 12 m [facility], were you homeless or living in a [facility] (including now)? No 11/11/2024 Personal Safety Answer Date Recorded Have you ever been in or are you currently in a harmful physical or emotional relationship or is someone making you feel afraid or unsafe? Denies 11/09/2024 Sex and Gender Information Value Date Recorded Sex Assigned at Not on file Legal Sex Male 12:32 AM CORPORATE TRUST OFFICER Gender Identity Not on file Sexual Orientation [...] on file Medical Devices Implanted Type Area Horse Riding Coach Or Instructor Device Identifier Shelf Expiration Date Model / [...] and 61 to 70 cm pressure-regulating balloon. [employer] Vascu-Guard 8x.8cm Peripheral Patch Vascular [place]ovine Pericardium [id number]-[id number] - [id number] Implanted:Qty: 1 on 10/30/2022 by Aniceto Foley MD at [facility] Right: Carotid [employer] [id number] 07/09/2023 [id number] / / [id number] [employer] [place] [employer] Sandra Ams 800 Kit Accessory Sterile Disposable Latex Free Urinary [id number] - [id number] Implanted:Qty: 1 on 11/09/2024 by Kami Meneses MD at [facility] N/A: Urethra [employer] Sandra [id number] 03/09/2029 [id number] / / [id number] [employer] Sandra Cuff Urethral Ams 800 Inhibizone 3.5cm [id number] - [id number] Implanted:Qty: 1 on 11/09/2024 by Kami Meneses MD at [facility] N/A: Urethra [employer] Sandra [id number] 02/22/2026 [id number] / / [id number] [employer] Sandra Ams 800 Pressure Balloon Sphincter 61-70cu Cm Implant Urological [id number] - [id number] Implanted:Qty: 1 on 11/09/2024 by Kami Meneses MD at [facility] N/A: Abdomen [employer] Sandra [id number] 03/20/2029 [id number] / / [id number] [employer] Sandra Ams 800 Control Pump Sphincter Implant Urological Inhibizone [id number] - [id number] Implanted:Qty: 1 on 11/09/2024 by Kami Meneses MD at [facility] N/A: Scrotum [employer] Sandra [id number] 02/15/2026 [id number] / / [id number] Procedures Procedure Name Priority Date/Time Associated Diagnosis [...] URINALYSIS, MICROSCOPIC ONLY Routine 10/26/2024 1:43 PM CORPORATE TRUST OFFICER Stress incontinence URINALYSIS AND REFLEX TO MICROSCOPIC AND CULTURE Routine 10/26/2024 1:43 PM CORPORATE TRUST OFFICER Stress incontinence LIPID PANEL Routine 03/22/2024 10:23 AM CDT Coronary artery disease involving tejon coronary artery of tejon heart without angina pectoris CTA ABDOMINAL AORTA AND BILATERAL ILIOFEMORAL RUNOFF Schedule Routine, Read Routine (OP Routine) 12/15/2023 1:56 PM CDT PVD (peripheral vascular disease) HEMOGLOBIN A1C Routine 09/22/2023 12:19 PM CORPORATE TRUST OFFICER Prostate cancer (HCC) from Last 3 Months [...] 8 AM CDT 11/12/2024 11:38 AM CDT Kami Gleason MD LAB POCT ORDERABLES - DEVICE F inal Result Performing Organization Address [facility] Co de Phone Number [facility] [address] Department [place] [address] * (ABNORMAL) eGFR (11/12/2024 8:15 AM CDT) [...] 8:15 AM CDT 11/12/2024 9:17 AM CDT Kalina Coronado NP LAB BLOOD ORDERABLES Fi nal Result Performing Organization Address [facility]/ZIP Co de Phone Number [facility] [address] Department [place] [address] * (ABNORMAL) Basic metabolic panel (11/12/2024 8:15 AM CDT) Pathologist [facility] Sodium 138 135 - 145 mmol/L Potassium, pl 4.2 3.3 - 4.9 mmol/L [facility] Chloride 106 97 - 110 mmol/L [facility] CO2 21(L) 22 - 32 mmol/L [facility] Anion gap 11 2 - 15 mmol/L [facility] BUN 28(H) 6 - 25 mg/dL [facility] Creatinine 1.26 0.80 - 1.30 mg/dL [facility] Glucose 136 70 - 199 mg/dL [facility] Comment: Interpretive Data Fasting glucose >/= [...] 2022. Calcium 9.2 8.5 - 10.3 mg/dL [facility] Blood 11/12/2024 8:15 AM CDT 11/12/2024 9:17 AM CDT us Kalina Coronado NP LAB BLOOD ORDERABLES Fi nal Result Performing Organization Address City/[facility]/ZIP Co de Phone Number [facility] [address] [place] [address] * POCT glucose (11/12/2024 5:49 AM CDT) Glucose, POC 125 70 - 199 mg/dL Comment: For Glucose values <35 mg/dl when Hematocrit is >60 mg/dl,the test may not accurately detect significant hypoglycemia,and testing in the Laboratory should be considered if clinically indicated. Blood 11/12/2024 5:49 AM CDT 11/12/2024 5:49 AM CDT Kami Gleason MD LAB POCT ORDERABLES - DEVICE F inal Result [facility] [address] [place] [address] * (ABNORMAL) POCT glucose (11/11/2024 8:22 PM CDT) Glucose, POC 214(H) 70 - 199 mg/dL Comment: For Glucose values <35 mg/dl when Hematocrit is >60 mg/dl,the test may not accurately detect significant hypoglycemia,and testing in the Laboratory should be considered if clinically indicated. Blood 11/11/2024 8:22 PM CDT 11/11/2024 8:[address] [facility] LAB POCT ORDERABLES - DEVICE F inal Result Performing Organization Address [facility] de Phone Number [facility] [address] [facility] [place] [address] * POCT glucose (11/11/2024 5:14 PM CDT) Glucose, POC 127 70 - 199 mg/dL Comment: For Glucose values <35 mg/dl when Hematocrit is >60 mg/dl,the test may not accurately detect significant hypoglycemia,and testing in the Laboratory should be considered if clinically indicated. Blood 11/11/2024 5:14 PM CDT 11/11/2024 5:[address] [facility] LAB POCT ORDERABLES - DEVICE F inal Result Performing Organization Address [facility] de Phone Number [facility] [address] [facility] [place] [address] * POCT glucose (11/11/2024 11:29 AM CDT) Glucose, POC 144 70 - 199 mg/dL Comment: For Glucose values <35 mg/dl when Hematocrit is >60 mg/dl,the test may not accurately detect significant hypoglycemia,and testing in the Laboratory should be considered if clinically indicated. Blood 11/11/2024 11:2 9 AM CDT 11/11/2024 11:29 AM CDT us Kami Gleason MD LAB POCT ORDERABLES - DEVICE F inal Result Performing Organization Address [facility] Co de Phone Number [facility] [address] Department [place] [address] * (ABNORMAL) eGFR (11/11/2024 7:48 AM CDT) Pathologist [facility] eGFR 48(L) >=60 mL/min/1. 73 m2 [...] ORDERABLES Final Res ult Performing Organization Address City/[facility]/ZIP Co de Phone Number [facility] [address] Department [place] [address] * Differential, auto (11/11/2024 7:48 AM CDT) Pathologist [facility] Neutrophil abs 5.4 1.5 - 6.5 K/cumm Imm gran abs 0.0 0.0 - 0.1 K/cumm [facility] Lymphocyte abs 1.8 0.8 - 3.3 K/cumm [facility] Monocyte abs 0.8 0.2 - 0.8 K/cumm [facility] Eosinophil abs 0.2 0.0 - 0.5 K/cumm [facility] Basophil abs 0.0 0.0 - 0.1 K/cumm [facility] Neutrophil pct 65.8 % [facility] Comment: Interpretive Data Percent cell count reference ranges are not reported, since discordance with absolute values may lead to misinterpretation of CBC data. Current Interpretive Data was last revised on 2017. Imm gran pct 0.5 % [facility] Comment: Interpretive Data Percent cell count reference ranges are not reported, since discordance with absolute values may lead to misinterpretation of CBC data. Current Interpretive Data was last revised on 2017. Lymphocyte pct 21.7 % [facility] Comment: Interpretive Data Percent cell count reference ranges are not reported, since discordance with absolute values may lead to misinterpretation of CBC data. Current Interpretive Data was last revised on 2017. Monocyte pct 10.0 % [facility] Comment: Interpretive Data Percent cell count reference ranges are not reported, since discordance with absolute values may lead to misinterpretation of CBC data. Current Interpretive Data was last revised on 2017. Eosinophil pct 1.8 % [facility] Comment: Interpretive Data Percent cell count reference ranges are not reported, since discordance with absolute values may lead to misinterpretation of CBC data. Current Interpretive Data was last revised on 2017. Basophil pct 0.2 % [facility] Comment: Interpretive Data Percent cell count reference ranges are not reported, since discordance with absolute values may lead to misinterpretation of CBC data. Current Interpretive Data was last revised on 2017. Blood 11/11/2024 7:48 AM CDT 11/11/2024 8:16 AM CDT us Kalina Coronado NP LAB BLOOD ORDERABLES Fi nal Result [facility] [address] Department [place] [address] * (ABNORMAL) CBC with auto differential (11/11/2024 7:48 AM CDT) [facility] WBC 8.2 3.8 - 9.9 K/cumm Hgb 11.1(L) 13.0 - 17.5 g/dL [facility] Hct 34.8(L) 38.9 - 50.3 % [facility] Plt 175 150 - 400 K/cumm [facility] MPV 11.0 9.1 - 12.3 fL [facility] RBC 3.63(L) 4.30 - 5.80 M/cumm [facility] MCV 95.9 81.3 - 96.4 fL [facility] MCH 30.6 27.1 - 33.3 pg [facility] MCHC 31.9(L) 32.3 - 35.7 g/dL [facility] RDW CV 14.2 11.1 - 14.9 % [facility] RDW SD 50.2(H) 35.7 - 48.1 fL [facility] NRBC abs 0.00 0.00 - 0.01 K/cumm [facility] Blood 11/11/2024 7:48 AM CDT 11/11/2024 8:16 AM CDT us Kalina Coronado NP LAB BLOOD ORDERABLES Fi nal Result Performing Organization Address City/[facility]/ZIP Co de Phone Number [facility] [address] [employer] [place], [place] [id number] * Gentamicin level random (11/11/2024 7:48 AM CDT) [facility] Gentamicin random 9.8 mcg/mL Comment: Interpretive Data No reference ranges have been established for random drug levels. Current Interpretive Data was last revised on 2020. Blood 11/11/2024 7:48 AM CDT 11/11/2024 8:16 AM CDT us Kami Gleason MD LAB BLOOD ORDERABLES Final Res ult [facility] [address] [place] [address] * (ABNORMAL) Basic metabolic panel (11/11/2024 7:48 AM CDT) Pathologist [facility] Sodium 134(L) 135 - 145 mmol/L Potassium, pl 4.0 3.3 - 4.9 mmol/L [facility] Chloride 101 97 - 110 mmol/L [facility] CO2 24 22 - 32 mmol/L [facility] Anion gap 9 2 - 15 mmol/L [facility] BUN 35(H) 6 - 25 mg/dL [facility] Creatinine 1.50(H) 0.80 - 1.30 mg/dL [facility] Glucose 136 70 - 199 mg/dL [facility] Comment: Interpretive Data Fasting glucose >/= [...] 2022. Calcium 9.4 8.5 - 10.3 mg/dL [facility] Blood 11/11/2024 7:48 AM CDT 11/11/2024 8:16 AM CDT [facility] LAB BLOOD ORDERABLES Final Res ult [facility] [address] Department [place] [address] * POCT glucose (11/11/2024 6:41 AM CDT) [facility] Glucose, POC 155 70 - 199 mg/dL Comment: For Glucose values <35 mg/dl when Hematocrit is >60 mg/dl,the test may not accurately detect significant hypoglycemia,and testing in the Laboratory should be considered if clinically indicated. Blood 11/11/2024 6:41 AM CDT 11/11/2024 6:41 AM CDT Kami Gleason MD LAB POCT ORDERABLES - DEVICE F inal Result Performing Organization Address [facility] Co de Phone Number [facility] [address] [place] [address] * POCT glucose (11/10/2024 8:11 PM CDT) Glucose, POC 179 70 - 199 mg/dL Comment: For Glucose values <35 mg/dl when Hematocrit is >60 mg/dl,the test may not accurately detect significant hypoglycemia,and testing in the Laboratory should be considered if clinically indicated. Blood 11/10/2024 8:11 PM CDT 11/10/2024 8:11 PM CDT [facility] LAB POCT ORDERABLES - DEVICE F inal Result Performing Organization Address [facility] de Phone Number [facility] [address] [facility] [place] [address] * POCT glucose (11/10/2024 4:46 PM CDT) Glucose, POC 134 70 - 199 mg/dL Comment: For Glucose values <35 mg/dl when Hematocrit is >60 mg/dl,the test may not accurately detect significant hypoglycemia,and testing in the Laboratory should be considered if clinically indicated. Blood 11/10/2024 4:46 PM CDT 11/10/2024 4:46 PM CDT Kami Gleason MD LAB POCT ORDERABLES - DEVICE F inal Result Performing Organization Address [facility] Co de Phone Number [facility] [address] [facility] [place] [address] * POCT glucose (11/10/2024 12:00 PM CDT) Glucose, POC 98 70 - 199 mg/dL Comment: For Glucose values <35 mg/dl when Hematocrit is >60 mg/dl,the test may not accurately detect significant hypoglycemia,and testing in the Laboratory should be considered if clinically indicated. Blood 11/10/2024 12:0 0 PM CDT 11/10/2024 12:00 PM CDT Kami Gleason MD LAB POCT ORDERABLES - DEVICE F inal Result Performing Organization Address [facility] de Phone Number [facility] [address] [place] [address] * POCT glucose (11/10/2024 7:38 AM CDT) Glucose, POC 112 70 - 199 mg/dL Comment: For Glucose values <35 mg/dl when Hematocrit is >60 mg/dl,the test may not accurately detect significant hypoglycemia,and testing in the Laboratory should be considered if clinically indicated. Blood 11/10/2024 7:38 AM CDT 11/10/2024 7:38 AM CDT [facility] MD LAB POCT ORDERABLES - DEVICE F inal Result Performing Organization Address [facility] de Phone Number [facility] [address] [place] [address] * (ABNORMAL) POCT glucose (11/09/2024 8:32 PM CDT) Glucose, POC 222(H) 70 - 199 mg/dL Comment: For Glucose values <35 mg/dl when Hematocrit is >60 mg/dl,the test may not accurately detect significant hypoglycemia,and testing in the Laboratory should be considered if clinically indicated. Blood 11/09/2024 8:32 PM CDT 11/09/2024 8:32 PM CDT [facility] LAB POCT ORDERABLES - DEVICE F inal Result Performing Organization Address [facility]/ZIP Co de Phone Number [facility] [address] Department [place] [address] * POCT glucose (11/09/2024 5:35 PM CDT) Pathologist [facility] Glucose, POC 171 70 - 199 mg/dL Comment: For Glucose values <35 mg/dl when Hematocrit is >60 mg/dl,the test may not accurately detect significant hypoglycemia,and testing in the Laboratory should be considered if clinically indicated. Blood 11/09/2024 5:35 PM CDT 11/09/2024 5:35 PM CDT Kami Gleason MD LAB POCT ORDERABLES - DEVICE F inal Result Performing Organization Address [facility] Co de Phone Number [facility] [address] Department [place] [address] * (ABNORMAL) eGFR (11/09/2024 4:58 PM CDT) [facility] eGFR 53(L) >=60 mL/min/1. 73 m2 [...] of Race in Diagnosing Kidney Disease, JASN 202). The CKD-EPI equation should not be used for patients with unstable renal function and has not been validated in children and those over 70. Current interpretive data was last reviewed 2021. Blood 11/09/2024 4:58 PM CDT 11/09/2024 5:50 PM CDT Kami Gleason MD LAB BLOOD ORDERABLES Final Res ult [facility] [address] [place] [address] * (ABNORMAL) Basic metabolic panel (11/09/2024 4:58 PM CDT) Sodium 134(L) 135 - 145 mmol/L Potassium, pl 4.6 3.3 - 4.9 mmol/L [facility] Chloride 101 97 - 110 mmol/L [facility] CO2 21(L) 22 - 32 mmol/L [facility] Anion gap 12 2 - 15 mmol/L [facility] BUN 29(H) 6 - 25 mg/dL [facility] Creatinine 1.39(H) 0.80 - 1.30 mg/dL [facility] Glucose 203(H) 70 - 199 mg/dL [facility] Comment: Interpretive Data Fasting glucose >/= [...] 2022. Calcium 10.0 8.5 - 10.3 mg/dL [facility] Blood 11/09/2024 4:58 PM CDT 11/09/2024 5:50 PM CDT Kami Gleason MD LAB BLOOD ORDERABLES Final Res ult [facility] [address] [place] [address] * POCT glucose (11/09/2024 10:08 AM CDT) Glucose, POC 167 70 - 199 mg/dL Comment: For Glucose values <35 mg/dl when Hematocrit is >60 mg/dl,the test may not accurately detect significant hypoglycemia,and testing in the Laboratory should be considered if clinically indicated. Blood 11/09/2024 10:0 8 AM CDT 11/09/2024 10:08 AM CDT [facility] LAB POCT ORDERABLES - DEVICE F inal Result Performing Organization Address [facility] de Phone Number [facility] [address] Department [employer] [place], [place] [id number] * POCT glucose (11/09/2024 9:20 AM CDT) Glucose, POC 163 70 - 199 mg/dL Comment: For Glucose values <35 mg/dl when Hematocrit is >60 mg/dl,the test may not accurately detect significant hypoglycemia,and testing in the Laboratory should be considered if clinically indicated. Blood 11/09/2024 9:20 AM CDT 11/09/2024 9:[address] [facility] LAB POCT ORDERABLES - DEVICE F inal Result Performing Organization Address [facility] de Phone Number [facility] [address] [place] [address] * [place] AN ELECTIVE ENDOTRACHEAL AIRWAY, [place] AN PROCEDURE PLACEHOLDER (11/09/2024 7:54 AM CDT) Narrative Jorge Sun CRNA - 11/09/2024 7:54 AM CDT Jorge Sun CRNA 11/09/2024 7:55 AM Airway Patient location: OR Urgency: elective Indications for airway management: anesthesia and airway protection Difficult airway: no Staff: Supervising provider: Lai Gregg DO Placed by: LOG DECK TENDER: Jorge Sun CRNA Emergent airway documentation: Risks [...] 6:43 AM CDT 11/09/2024 6:43 AM CDT Kami Gleason MD LAB POCT ORDERABLES - DEVICE F inal Result [facility] [address] Department [place] [address] * (ABNORMAL) Urinalysis reflex to microscopic and culture Urine, bladder (10/26/2024 1:43 PM CORPORATE TRUST OFFICER) Color, ur Straw Yellow Clarity, ur Clear Clear [facility] Specific gravity, ur 1.010 1.003 - 1.030 [facility] pH, urine 6.5 [facility] Comment: Interpretive Data U rine pH is affected by diet, medications, systemic acid-base disturbances, and renal tubular function. pH may affect urinary stone formation. For example, urine pH below 6.0 may help reduce the tendency for calcium phosphate stones and pH greater than 6.0 may reduce the tendency for uric acid stone formation. Source: [facility] Current Interpretive Data was last revised on 2017 Protein, ur ql Trace Negative [facility] Glucose, ur ql Negative Negative [facility] Ketones, ur Negative Negative [facility] Bilirubin, ur Negative Negative [facility] Blood, ur 1+(A) Negative [facility] Urobilinogen, ur <2.0 <2.0 mg/dL [facility] Nitrite, ur Negative Negative [facility] Leukocyte esterase, ur Negative Negative [facility] UA reflex comment Reflex to microscopic UA will be performed. [facility] Urine, bladder 10/26/2024 1: 43 PM CORPORATE TRUST OFFICER 10/26/2024 2:03 PM CORPORATE TRUST OFFICER Kami Gleason MD LAB MICROBIOLOGY - GENERAL ORD ERABLES Final Result Performing Organization Address [facility] Co de Phone Number [facility] [address] [place], [place] [id number] * Urinalysis, microscopic only (10/26/2024 1:43 PM CORPORATE TRUST OFFICER) WBC, ur 0-5 0 - 5 /HPF RBC, ur 0-2 0 - 2 /HPF [facility] Culture Reflex Comment Reflex conditions for urine culture (WBC >10) not met. [facility] Urine, bladder 10/26/2024 1: 43 PM CORPORATE TRUST OFFICER 10/26/2024 2:03 PM CORPORATE TRUST OFFICER Kami Gleason MD LAB URINE ORDERABLES Final Res ult Performing Organization Address City/[facility] Co de Phone Number [facility] [address] [facility] [place] [address] * (ABNORMAL) Lipid panel (03/22/2024 10:23 AM [...] 2018. Triglycerides 115 <=149 mg/dL [facility] Comment: Interpretive Data Ages < or = [...] on 2018. HDL 37(L) >=40 mg/dL [facility] Comment: Interpretive Data Ages < or = [...] LDL, calculated 67 <=129 mg/dL [facility] Comment: Interpretive Data Ages < or = [...] revised on 2018. Non-HDL Cholesterol 90 mg/dL [facility] Comment: Interpretive Data Ages < or [...] last revised on 2018. Chol/HDL ratio 3 [facility] Blood 03/22/2024 10:2 3 AM CDT 03/22/2024 10:52 AM CDT us Antonette Rater [employer] LAB BLOOD ORDERABLES Final Resul t [facility] [address] [facility] Department [place] [address] * CTA Abdominal Aorta And Bilateral Iliofemoral [...] * (ABNORMAL) Hemoglobin A1c (09/22/2023 12:19 PM CORPORATE TRUST OFFICER) Hgb A1C 6.0(H) 4.0 - 5.6 % [facility] Estimated Average Glucose 126 mg/dL [facility] Comment: The ADA recommends reporting an estimated Average Glucose (eAG) with all Hemoglobin A1c results using the equation derived from a study of 507 normal and diabetic adults. Minority populations were underrepresented and children were not included. (Diabetes Care 2020; 43(S1): S66-S76). The eAG is not equivalent to a fasting glucose. Blood 09/22/2023 12:1 9 PM CORPORATE TRUST OFFICER 09/22/2023 12:45 PM CORPORATE TRUST OFFICER Chicho Clayton MD LAB BLOOD ORDERABLES Final Resul t [facility] Department [place] [address] from Last 3 Months or Most Recently Relevant to Health Maintenance Insurance [facility] MEDICARE MEDICARE [facility] MEDICARE [facility] MEDICARE [facility] Advance Directives For more information, please contact: [phone] * Full Code (Latest Code Status on File) Date Activated Date Inactivated Comments 11/09/2024 2:36 PM 11/12/2024 6:36 PM * Full Code Date Activated Date Inactivated Comments 10/30/2022 5:29 PM 10/31/2022 7:15 PM * Full Code Date Activated Date Inactivated Comments 08/16/2019 9:46 AM 08/16/2019 5:30 PM 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 Relationship Specialty Start Date End Date Fuentes Orellana MD PCP - General 11/28/16 Itz Iyer MD [address] [facility] [address] [place], [place] [id number] Consulting Physician Urology 05/31/18 Shawnee Mckinney MD [address] [facility] [address] [place] [address] Referring Physician Urology 06/03/18 Chicho Clayton MD [address] [facility] [address] [place] [address] Medical Oncologist/Hematologis t Medical Oncology 06/07/18 Maria Guadalupe Palacios, RN Registered Nurse 06/10/18 Lupillo Davenport MD Referring Physician Radiation Oncology 06/16/18 Danis Meza NP [address] [place] [address] Nurse Practitioner Urology 10/06/22 Antonette Owens NP [address] [facility] [address] [place] [address] Nurse Practitioner Cardiovascular Disease 10/06/22 Aniceto Foley MD [id number] [place] [address] Surgeon Vascular Surgery 10/31/22
--- OUTSIDE RECORDS SUMMARY | 2024-12-27 11:22 | XMS_ITS | Encounter Summary ---
Author Organization [facility] Address [address] [place] [address] Phone Care Team Providers Care Bottle And Glass Inspector Name Role Phone Fuentes Orellana MD Primary Care Provider + [phone] Itz Iyer MD Unavailable [phone] Shawnee Mckinney MD Unavailable [phone] Chicho Clayton MD Unavailable Maria Guadalupe Palacios RN Unavailable Unava ilable Lupillo Davenport MD Unavailable [phone] Danis Meza HOME ENERGY RATER Unavailable Antonette Owens NP Unavailable Aniceto Foley MD Unavailable [phone] Encounter Details Date Type Department Care [...] on file Legal Sex Male 12:32 AM [employer] Gender Identity Not on file Sexual Orientation [...] on filedocumented in this encounter Care Teams Bottle And Glass Inspector Relationship Specialty Start Date End Date Fuentes Orellana MD PCP - General 11/28/16 Itz Iyer MD [address] [place] [address] Consulting Physician Urology 05/31/18 Shawnee Mckinney MD [address] [facility] [address] [place] [address] Referring Physician Urology 06/03/18 Chicho Clayton MD [address] [place] [address] Medical Oncologist/Hematologis t Medical Oncology 06/07/18 Maria Guadalupe Palacios, RN Registered Nurse 06/10/18 Lupillo Davenport MD Referring Physician Radiation Oncology 06/16/18 Danis Meza NP [address] [place] [address] Nurse Practitioner Urology 10/06/22 Antonette Owens NP [address] [place] [address] Nurse Practitioner Cardiovascular Disease 10/06/22 Aniceto Foley MD [address] [place] [address] Surgeon Vascular Surgery 10/31/22 documented as of this encounter
--- OUTSIDE RECORDS SUMMARY | 2024-12-27 11:22 | XMS_ITS | Clinical Summary ---
Author Organization Unknown Care Team Providers Care Occupational Therapy Department Chair Name Role Phone PRABHJOT ESCOBAR, KIRK Unavailable Mikey MARTIN RN, ABI Unavailable Unavailable LOIS MACHINE DEICER ELEMENT WINDER, RICARDA Unavailable Unavailable MARCE PT, YANET Unavailable Unavailable VICTOR MANUEL BANK OPERATIONS OFFICER, DAPHNE Unavailable Unavailpatricia PAGE OT, TAMIE Unavailable Unavailable Payers Payer Name Policy Type Policy Number Effective Date Expira tion Date MEDICARE.[place] [id number] Problems Condition Name Condition Details Condition Category [...] 08-31 00:00: 00 ATHSCL HEART DISEASE OF [place] CORONARY ARTERY W/O ANG PCTRS Active 08-31 [...] SPECIFIED FUNCTIONAL IMPLANTS Active 08-31 00:00: 00 ASSISTED (CURRENT) USE OF ASPIRIN Active 08-31 00:00: [...] 325 mg tablet 11-09 00:00: 00 Yes [id number] PAIN 1 tablet DAILY 1 tablet DAILY (route: oral) Med Classific ation: Analgesic , Anti-infl ammatory or Antipyret ic sulfamethox azole 800 mg-trimetho prim 160 mg tablet 11-12 00:00: 00 11-19 23:59 :00 No [id number] PROPHYLATIC 1 tablet 2 TIMES DAILY 1 tablet 2 TIMES DAILY (route: oral) Med Classific ation: Anti-Infe ctive Agents metoprolol tartrate 25 mg tablet 11-03 00:00: 00 Yes [id number] HIGH BLOOD PRESSURE 1 tablet 2 TIMES DAILY 1 tablet 2 TIMES DAILY (route: oral) Med Classific ation: Cardiovas cular Therapy Agents rosuvastati n 40 mg tablet 11-02 00:00: 00 Yes [id number] CHOLESTEROL 1 tablet DAILY 1 tablet DAILY (route: oral) Med Classific ation: Cardiovas cular Therapy Agents Brilinta 60 mg tablet 11-12 00:00: 00 Yes [id number] BLOOD THINNER 1 tablet 2 TIMES DAILY 1 tablet 2 TIMES DAILY (route: oral) Med Classific ation: Hematolog ical Agents acetaminoph en 500 mg tablet 11-12 00:00: 00 Yes [id number] NEEDED FOR PAIN 1-5/10 ON A 1-10 SCALE OR FEVER GREATER THAN 100.1 2 tablet EVERY 6 HOURS 2 tablet EVERY 6 HOURS (route: oral) Med Classific ation: Analgesic , Anti-infl ammatory or Antipyret ic alendronate 70 mg tablet 11-12 00:00: 00 Yes [id number] OSTEOARTHRI TIS 1 tablet WEEKLY 1 tablet WEEKLY (route: oral) Med Classific ation: Endocrine allopurinol 300 mg tablet 11-12 00:00: 00 Yes [id number] GOUT 1 tablet DAILY 1 tablet DAILY (route: oral) Med Classific ation: Gout and Hyperuric emia Therapy alprazolam 0.25 mg tablet 11-12 00:00: 00 Yes [id number] NEEDED FOR ANXIETY 1 tablet 3 TIMES DAILY 1 tablet 3 TIMES DAILY (route: oral) Med Classific ation: Central Nervous System Agents amlodipine 5 mg tablet 11-12 00:00: 00 Yes [id number] HIGH BLOOD PRESSURE 1 tablet DAILY 1 tablet DAILY (route: oral) Med Classific ation: Cardiovas cular Therapy Agents cephalexin 500 mg capsule 11-12 00:00: 00 11-18 23:59 :00 No [id number] PROPHYLATIC 1 capsule 2 TIMES DAILY 1 capsule 2 TIMES DAILY (route: oral) Med Classific ation: Anti-Infe ctive Agents chlorthalid one 25 mg tablet 11-12 00:00: 00 Yes [id number] HIGH BLOOD PRESSURE 1 tablet DAILY 1 tablet DAILY (route: oral) Med Classific ation: Cardiovas cular Therapy Agents Kerendia 10 mg tablet 11-12 00:00: 00 Yes [id number] KIDNEY DISEASE 1 tablet DAILY 1 tablet DAILY (route: oral) Med Classific ation: Cardiovas cular Therapy Agents pantoprazol e 40 mg tablet,ingrid yed release 11-12 00:00: 00 Yes [id number] GASTROESOPH AGEAL REFULX DISEASE 1 tablet DAILY 1 tablet DAILY (route: oral) Med Classific ation: Gastroint estinal Therapy Agents telmisartan 80 mg tablet 11-12 00:00: 00 Yes [id number] HIGH BLOOD PRESSURE 1 tablet DAILY 1 tablet DAILY (route: oral) Med Classific ation: Cardiovas cular Therapy Agents Tradjenta 5 mg tablet 11-12 00:00: 00 Yes [id number] DIABETES 1 tablet DAILY 1 tablet DAILY (route: oral) Med Classific ation: Endocrine nitroglycer in 0.3 mg sublingual tablet 11-12 00:00: 00 Yes [id number] NEEDED FOR CHEST PAIN 1 tablet EVERY 5 MINUTES TIMES 3 1 tablet EVERY 5 MINUTES TIMES 3 (route: sublingual ) Med Classific ation: Cardiovas cular Therapy Agents glimepiride 1 mg tablet 12-13 00:00: 00 Yes [id number] DIABETES 1 mg 2 TIMES DAILY 1 mg 2 TIMES DAILY (route: oral) Alternate Route: BY MOUTH. Med Classific ation: Endocrine Gvoke 1 mg/0.2 mL subcutaneou s solution 12-13 00:00: 00 Yes [id number] LOW BLOOD SUGAR Per instruc tions NEEDED Per instructio ns NEEDED (route: subcutaneo us) Alternate Route: SUBCUTANE OUS. Med Classific ation: Endocrine Vital Signs Vital Name Observation Time Observation Value Commen ts Temperature 2024-12-27 09:22:00.000 98 [degF] Temperature 2024-12-13 08:53:00.000 98 [degF] Temperature 2024-12-06 12:40:00.000 97.5 [degF] Temperature 2024-11-29 09:46:00.000 97.8 [degF] Temperature 2024-11-25 10:39:00.000 97.5 [degF] Temperature 2024-11-22 08:47:00.000 96.8 [degF] Temperature 2024-11-21 12:06:00.000 98.4 [degF] Temperature 2024-11-17 08:50:00.000 97.2 [degF] Temperature 2024-11-14 16:23:00.000 96.8 [degF] BMI (%) 2024-11-14 16:23:00.000 27 kg/m2 Height 2024-11-14 16:23:00.000 64 [in_us] Pulse 2024-12-27 09:22:00.000 70 /min Pulse 2024-12-13 08:53:00.000 64 /min Pulse 2024-12-06 12:40:00.000 62 /min Pulse 2024-11-29 09:46:00.000 66 /min Pulse 2024-11-25 10:39:00.000 76 /min Pulse 2024-11-22 08:47:00.000 72 /min Pulse 2024-11-21 12:06:00.000 66 /min Pulse 2024-11-17 08:50:00.000 72 /min Pulse 2024-11-14 16:23:00.000 72 /min O2 Saturation (%) 2024-12-27 09:22:00.000 98 % O2 Saturation (%) 2024-12-13 08:53:00.000 100 % O2 Saturation (%) 2024-12-06 12:40:00.000 96 % O2 Saturation (%) 2024-11-29 09:46:00.000 99 % O2 Saturation (%) 2024-11-25 10:39:00.000 97 % O2 Saturation (%) 2024-11-22 08:47:00.000 98 % O2 Saturation (%) 2024-11-21 12:06:00.000 99 % O2 Saturation (%) 2024-11-17 08:50:00.000 96 % O2 Saturation (%) 2024-11-14 16:23:00.000 99 % Respirations 2024-12-27 09:22:00.000 16 /min Respirations 2024-12-13 08:53:00.000 16 /min Respirations 2024-12-06 12:40:00.000 16 /min Respirations 2024-11-29 09:46:00.000 16 /min Respirations 2024-11-25 10:39:00.000 18 /min Respirations 2024-11-22 08:47:00.000 18 /min Respirations 2024-11-21 12:06:00.000 16 /min Respirations 2024-11-17 08:50:00.000 18 /min Respirations 2024-11-14 16:23:00.000 16 /min Weight (lbs) 2024-12-27 09:22:00.000 164 [lb_av] Weight (lbs) 2024-12-13 08:53:00.000 161 [lb_av] Weight (lbs) 2024-12-06 12:40:00.000 162 [lb_av] Weight (lbs) 2024-11-29 09:46:00.000 159 [lb_av] Weight (lbs) 2024-11-25 10:39:00.000 160 [lb_av] Weight (lbs) 2024-11-21 12:06:00.000 160 [lb_av] Weight (lbs) 2024-11-14 16:23:00.000 160 [lb_av] Systolic Blood Pressure 2024-12-27 09:22:00.000 142 mm [Hg] Systolic Blood Pressure 2024-12-13 08:53:00.000 136 mm [...] 16:23:00.000 126 mm [Hg] Diastolic Blood Pressure 2024-12-27 09:22:00.000 58 mm [Hg] Diastolic Blood Pressure 2024-12-13 08:53:00.000 [...] RICK MD RN TO OBSERVE AND ASSESS, MACHINE DEICER ELEMENT WINDER/DEPUTY ADMINISTRATOR TO OBSERVE FOR RISK FOR FALLS AND INSTRUCT IN FALL PREVENTION, HOME SAFETY, MEDICATION MANAGEMENT, INFECTION PREVENTION, AND NUTRITION MANAGEMENT. RN/MACHINE DEICER ELEMENT WINDER/DEPUTY ADMINISTRATOR NURSE MAY PERFORM O2 SATURATION LEVEL ON ADMISSION, EVERY VISIT AND PRN FOR SHORTNESS OF BREATH FOR RN TO ASSESS/MACHINE DEICER ELEMENT WINDER TO OBSERVE PATIENT, WITH NOTIFICATION TO THE PHYSICIAN IF SATURATION IS 90% IN THE ABSENCE OF MORE SPECIFIC PARAMETERS FROM THE PHYSICIAN. AGENCY MAY PERFORM A RESUMPTION OF CARE VISIT FOLLOWING ANY HOSPITAL ADMISSION. RN/MACHINE DEICER ELEMENT WINDER/DEPUTY ADMINISTRATOR TO MONITOR CO-MORBID CONDITIONS LISTED ON THE PLAN OF CARE AND ANY NEW CONDITIONS THAT PRESENT THEMSELVES DURING THIS EPISODE TO IDENTIFY CHANGES AND INTERVENE TO MINIMIZE COMPLICATIONS. [code = RN TO OBSERVE, ASSESS, EVALUATE, AND DEVELOP AN INDIVIDUALIZED PLAN OF CARE. AGENCY MAY ACCEPT ORDERS FROM CONSULTING PHYSICIANS KIRK RICK MD RN TO OBSERVE AND ASSESS, MACHINE DEICER ELEMENT WINDER/DEPUTY ADMINISTRATOR TO OBSERVE FOR RISK FOR FALLS AND INSTRUCT IN FALL PREVENTION, HOME SAFETY, MEDICATION MANAGEMENT, INFECTION PREVENTION, AND NUTRITION MANAGEMENT. RN/MACHINE DEICER ELEMENT WINDER/DEPUTY ADMINISTRATOR NURSE MAY PERFORM O2 SATURATION LEVEL ON ADMISSION, EVERY VISIT AND PRN FOR SHORTNESS OF BREATH FOR RN TO ASSESS/MACHINE DEICER ELEMENT WINDER TO OBSERVE PATIENT, WITH NOTIFICATION TO THE PHYSICIAN IF SATURATION IS 90% IN THE ABSENCE OF MORE SPECIFIC PARAMETERS FROM THE PHYSICIAN. AGENCY MAY PERFORM A RESUMPTION OF CARE VISIT FOLLOWING ANY HOSPITAL ADMISSION. RN/MACHINE DEICER ELEMENT WINDER/DEPUTY ADMINISTRATOR TO MONITOR CO-MORBID CONDITIONS LISTED ON THE [...] OT EVALUATION] Future Scheduled Test MEDICATION MANAGEMENT; RN/MACHINE DEICER ELEMENT WINDER/DEPUTY ADMINISTRATOR TO REVIEW MEDICATIONS FOR INTERACTIONS, EFFECTIVENESS OF DRUG THERAPY, AND SIGNS/SYMPTOMS OF ADVERSE REACTIONS. MAY INSTRUCT AND REINFORCE MEDICATION TEACHING RELATED TO THE USE OF MEDICATIONS, DOSAGE, FREQUENCY, PURPOSE, SIDE EFFECTS, AND TO REPORT COMPLICATIONS. [code = MEDICATION MANAGEMENT; RN/MACHINE DEICER ELEMENT WINDER/DEPUTY ADMINISTRATOR TO REVIEW MEDICATIONS FOR INTERACTIONS, EFFECTIVENESS OF DRUG THERAPY, AND SIGNS/SYMPTOMS OF ADVERSE REACTIONS. MAY INSTRUCT AND REINFORCE MEDICATION TEACHING RELATED TO THE USE OF MEDICATIONS, DOSAGE, FREQUENCY, PURPOSE, SIDE EFFECTS, AND TO REPORT COMPLICATIONS.] Future Scheduled Test ANTICOAGUL ATION MANAGEMENT; RN TO ASSESS AND TEACH, MACHINE DEICER ELEMENT WINDER/DEPUTY ADMINISTRATOR TO OBSERVE/TEACH/MONITOR EFFECTIVENESS OF ANTICOAGULATION THERAPY. RN/MACHINE DEICER ELEMENT WINDER/DEPUTY ADMINISTRATOR TO INSTRUCT ON SIGNS AND SYMPTOMS OF BLEEDING/ADVERSE REACTIONS TO REPORT TO PHYSICIAN. RN/MACHINE DEICER ELEMENT WINDER/DEPUTY ADMINISTRATOR TO PERFORM PT/INR VIA VENIPUNCTURE OR COAGUCHECK PRN PHYSICIAN ORDERSS RN/MACHINE DEICER ELEMENT WINDER/DEPUTY ADMINISTRATOR TO FAX/CALL IN RESULTS TO PHYSICIAN TIMELY [code = ANTICOAGULATION MANAGEMENT; RN TO ASSESS AND TEACH, MACHINE DEICER ELEMENT WINDER/DEPUTY ADMINISTRATOR TO OBSERVE/TEACH/MONITOR EFFECTIVENESS OF ANTICOAGULATION THERAPY. RN/MACHINE DEICER ELEMENT WINDER/DEPUTY ADMINISTRATOR TO INSTRUCT ON SIGNS AND SYMPTOMS OF BLEEDING/ADVERSE REACTIONS TO REPORT TO PHYSICIAN. RN/MACHINE DEICER ELEMENT WINDER/DEPUTY ADMINISTRATOR TO PERFORM PT/INR VIA VENIPUNCTURE OR COAGUCHECK PRN PHYSICIAN ORDERSS RN/MACHINE DEICER ELEMENT WINDER/DEPUTY ADMINISTRATOR TO FAX/CALL IN RESULTS TO PHYSICIAN TIMELY ] Future Scheduled Test FALL REDUC TION MANAGEMENT; RN TO ASSESS AND OBSERVE, MACHINE DEICER ELEMENT WINDER/DEPUTY ADMINISTRATOR TO OBSERVE FALL RISK FACTORS AND EDUCATE PATIENT/CAREGIVER ON STRATEGIES TO MINIMIZE THE RISK OF FALLING. [code = FALL REDUCTION MANAGEMENT; RN TO ASSESS AND OBSERVE, MACHINE DEICER ELEMENT WINDER/DEPUTY ADMINISTRATOR TO OBSERVE FALL RISK FACTORS AND EDUCATE PATIENT/CAREGIVER ON STRATEGIES TO MINIMIZE THE RISK OF FALLING.] Future Scheduled Test GENITOURIN KEZIA MANAGEMENT; RN TO ASSESS AND TEACH, MACHINE DEICER ELEMENT WINDER/DEPUTY ADMINISTRATOR TO OBSERVE AND TEACH RELATED TO ALTERED GENITOURINARY STATUS TO MINIMIZE COMPLICATIONS AND REDUCE HOSPITALIZATION. [code = GENITOURINARY MANAGEMENT; RN TO ASSESS AND TEACH, MACHINE DEICER ELEMENT WINDER/DEPUTY ADMINISTRATOR TO OBSERVE AND TEACH RELATED TO ALTERED GENITOURINARY STATUS TO MINIMIZE COMPLICATIONS AND REDUCE HOSPITALIZATION.] Future Scheduled Test URINARY IN CONTINENCE MANAGEMENT; RN TO ASSESS AND TEACH, MACHINE DEICER ELEMENT WINDER/LVNTO OBSERVE AND TEACH MANAGEMENT OF URINARY INCONTINENCE. TEACH/INSTRUCT ON PREVENTING INFECTION AND SKIN BREAKDOWN. RN/MACHINE DEICER ELEMENT WINDER/DEPUTY ADMINISTRATOR MAY INSTRUCT IN BLADDER TRAINING PROGRAM INDICATED. [code = URINARY INCONTINENCE MANAGEMENT; RN TO ASSESS AND TEACH, MACHINE DEICER ELEMENT WINDER/LVNTO OBSERVE AND TEACH MANAGEMENT OF URINARY INCONTINENCE. TEACH/INSTRUCT ON PREVENTING INFECTION AND SKIN BREAKDOWN. RN/MACHINE DEICER ELEMENT WINDER/DEPUTY ADMINISTRATOR MAY INSTRUCT IN BLADDER TRAINING PROGRAM INDICATED.] Future Scheduled Test DIABETES M ANAGEMENT; RN TO ASSESS AND TEACH, DEPUTY ADMINISTRATOR/MACHINE DEICER ELEMENT WINDER TO OBSERVE AND TEACH INSTRUCTIONS OF DIABETIC CARE TO INCLUDE: DIET DIABETIC SKIN CARE, SIGNS AND SYMPTOMS OF HYPO/HYPERGLYCEMIA, PROPER ADMINISTRATION OF DIABETIC MEDICATION. RN/DEPUTY ADMINISTRATOR/MACHINE DEICER ELEMENT WINDER TO INSTRUCT ON DIABETIC FOOT CARE AND MONITOR FOR SKIN LESIONS ON LOWER EXTREMITIES. BLOOD GLUCOSE TESTING DAILY RN TO ASSESS AND TEACH, DEPUTY ADMINISTRATOR/MACHINE DEICER ELEMENT WINDER TO OBSERVE AND TEACH PATIENT/CAREGIVER ABILITY TO PERFORM AND RECORD BLOOD GLUCOSE TESTING ORDERED AND TO REPORT ABNORMAL FINDINGS TO PHYSICIAN. RN/DEPUTY ADMINISTRATOR/MACHINE DEICER ELEMENT WINDER MAY PERFORM BLOOD GLUCOSE TEST NEEDED. RN/DEPUTY ADMINISTRATOR/MACHINE DEICER ELEMENT WINDER TO REPORT TO PHYSICIAN BLOOD GLUCOSE READINGS GREATER THAN 300 OR LESS THAN 70 RN/DEPUTY ADMINISTRATOR/MACHINE DEICER ELEMENT WINDER TO INSTRUCT PATIENT ON IMPORTANCE OF HGBA1C MONITORING, KIDNEY FUNCTION TEST, EYE AND FOOT EXAMS. [code = DIABETES MANAGEMENT; RN TO ASSESS AND TEACH, DEPUTY ADMINISTRATOR/MACHINE DEICER ELEMENT WINDER TO OBSERVE AND TEACH INSTRUCTIONS OF DIABETIC CARE TO INCLUDE: DIET DIABETIC SKIN CARE, SIGNS AND SYMPTOMS OF HYPO/HYPERGLYCEMIA, PROPER ADMINISTRATION OF DIABETIC MEDICATION. RN/DEPUTY ADMINISTRATOR/MACHINE DEICER ELEMENT WINDER TO INSTRUCT ON DIABETIC FOOT CARE AND MONITOR FOR SKIN LESIONS ON LOWER EXTREMITIES. BLOOD GLUCOSE TESTING DAILY RN TO ASSESS AND TEACH, DEPUTY ADMINISTRATOR/MACHINE DEICER ELEMENT WINDER TO OBSERVE AND TEACH PATIENT/CAREGIVER ABILITY TO PERFORM AND RECORD BLOOD GLUCOSE TESTING ORDERED AND TO REPORT ABNORMAL FINDINGS TO PHYSICIAN. RN/DEPUTY ADMINISTRATOR/MACHINE DEICER ELEMENT WINDER MAY PERFORM BLOOD GLUCOSE TEST NEEDED. RN/DEPUTY ADMINISTRATOR/MACHINE DEICER ELEMENT WINDER TO REPORT TO PHYSICIAN BLOOD GLUCOSE READINGS GREATER THAN 300 OR LESS THAN 70 RN/DEPUTY ADMINISTRATOR/MACHINE DEICER ELEMENT WINDER TO INSTRUCT PATIENT ON IMPORTANCE OF HGBA1C MONITORING, KIDNEY FUNCTION TEST, EYE AND FOOT EXAMS.] Future Scheduled Test PAIN MANAG EMENT; RN TO ASSESS AND TEACH, DEPUTY ADMINISTRATOR/MACHINE DEICER ELEMENT WINDER TO OBSERVE AND TEACH AND PROVIDE EDUCATION ON PAIN MANAGEMENT TECHNIQUES. [code = PAIN MANAGEMENT; RN TO ASSESS AND TEACH, DEPUTY ADMINISTRATOR/MACHINE DEICER ELEMENT WINDER TO OBSERVE AND TEACH AND PROVIDE EDUCATION ON PAIN MANAGEMENT TECHNIQUES.] Future Scheduled Test RN/MACHINE DEICER ELEMENT WINDER/DEPUTY ADMINISTRATOR TO PERFORM/TEACH INCISION CARE TO SUPRAPUBIC AND PERINEUM AREA: KEEP CLEAN AND DRY. INSPECT DAILY. NO LOTIONS OR OINTMENTS TO INCISIONS. MAY SHOWER AND PAT INCISIONS DRY. LEAVE ADHESIVE INTACT. [code = RN/MACHINE DEICER ELEMENT WINDER/DEPUTY ADMINISTRATOR TO PERFORM/TEACH INCISION CARE TO SUPRAPUBIC AND PERINEUM AREA: KEEP CLEAN AND DRY. INSPECT DAILY. NO LOTIONS OR OINTMENTS TO INCISIONS. MAY SHOWER AND PAT INCISIONS DRY. LEAVE ADHESIVE INTACT. ] Future Scheduled Test PRN VISITS ; NUMBER OF RN/MACHINE DEICER ELEMENT WINDER/DEPUTY ADMINISTRATOR VISITS: 1 RN/MACHINE DEICER ELEMENT WINDER/DEPUTY ADMINISTRATOR TO PERFORM: ASSESSMENT AND EDUCATION FOR THE FOLLOWING REASONS: INTEGUMENTARY/INCISION COMPLICATIONS [code = PRN VISITS; NUMBER OF RN/MACHINE DEICER ELEMENT WINDER/DEPUTY ADMINISTRATOR VISITS: 1 RN/MACHINE DEICER ELEMENT WINDER/DEPUTY ADMINISTRATOR TO PERFORM: ASSESSMENT AND EDUCATION FOR THE FOLLOWING REASONS: INTEGUMENTARY/INCISION COMPLICATIONS] Future Scheduled Test RISK FOR H OSPITALIZATION; RN TO ASSESS/TEACH, DEPUTY ADMINISTRATOR/MACHINE DEICER ELEMENT WINDER TO OBSERVE/TEACH PATIENT/CAREGIVER ON RISK FOR HOSPITALIZATION/EMERGENCY ROOM VISITS, TEACH SIGNS AND SYMPTOMS THAT PUT PATIENT AT RISK, WHEN TO NOTIFY NURSE/PHYSICIAN OF COMPLICATIONS/DECLINE, AND WHEN TO CALL 911. [code = RISK FOR HOSPITALIZATION; RN TO ASSESS/TEACH, DEPUTY ADMINISTRATOR/MACHINE DEICER ELEMENT WINDER TO OBSERVE/TEACH PATIENT/CAREGIVER ON RISK FOR HOSPITALIZATION/EMERGENCY ROOM VISITS, TEACH SIGNS AND SYMPTOMS THAT PUT PATIENT AT RISK, WHEN TO NOTIFY NURSE/PHYSICIAN OF COMPLICATIONS/DECLINE, AND WHEN TO CALL 911.] Future Scheduled Test CARDIOVASC ULAR SYSTEM; RN TO ASSESS/TEACH, MACHINE DEICER ELEMENT WINDER/DEPUTY ADMINISTRATOR TO OBSERVE/TEACH RELATED TO ALTERED CARDIOVASCULAR STATUS TO MINIMIZE COMPLICATIONS AND REDUCE HOSPITALIZATION. [code = CARDIOVASCULAR SYSTEM; RN TO ASSESS/TEACH, MACHINE DEICER ELEMENT WINDER/DEPUTY ADMINISTRATOR TO OBSERVE/TEACH RELATED TO ALTERED CARDIOVASCULAR STATUS TO MINIMIZE COMPLICATIONS AND REDUCE HOSPITALIZATION.] Future Scheduled Test HYPERTENSI ON MANAGEMENT; RN TO ASSESS AND TEACH, MACHINE DEICER ELEMENT WINDER/DEPUTY ADMINISTRATOR TO OBSERVE AND TEACH WARNING SIGNS AND SYMPTOMS TO AVOID HOSPITALIZATION. [code = HYPERTENSION MANAGEMENT; RN TO ASSESS AND TEACH, MACHINE DEICER ELEMENT WINDER/DEPUTY ADMINISTRATOR TO OBSERVE AND TEACH WARNING SIGNS AND SYMPTOMS TO AVOID HOSPITALIZATION.] Future Scheduled Test URINARY MO LECULAR TESTING PROTOCOL UP TO 2 PRN RN/MACHINE DEICER ELEMENT WINDER/DEPUTY ADMINISTRATOR VISITS MAY BE PERFORMED FOR S/S OF UTI. RN TO ASSESS, MACHINE DEICER ELEMENT WINDER/DEPUTY ADMINISTRATOR TO OBSERVE INITIATION OF UTI PROTOCOL. RN/DEPUTY ADMINISTRATOR/MACHINE DEICER ELEMENT WINDER TO INSTRUCT PATIENT AND/OR CAREGIVER ON S/S OF UTI TO REPORT TO RN/DEPUTY ADMINISTRATOR/MACHINE DEICER ELEMENT WINDER IF NEW OR WORSENING SYMPTOMS. DRINK PLENTY OF WATER THROUGHOUT THE DAY TO MAINTAIN HYDRATION (UNLESS CONTRAINDICATED.) URINATE WHEN THE URGE IS FELT, DO NOT WAIT. WASH GENITALS DAILY. WIPE FROM FRONT TO BACK AFTER HAVING A BOWEL MOVEMENT. RN/DEPUTY ADMINISTRATOR/MACHINE DEICER ELEMENT WINDER TO OBTAIN MOLECULAR URINE TESTING BY OPTION 1 OR OPTION 2 RN/DEPUTY ADMINISTRATOR/MACHINE DEICER ELEMENT WINDER TO OBTAIN U/A WITH REFLEX TO UTI PANEL (MOLECULAR) VIA CLEAN CATCH URINE AND IF UNABLE TO OBTAIN MAY PERFORM AN IN AND OUT CATH. IF PATIENT HAS INDWELLING CATHETER MAY OBTAIN FROM SAMPLING PORT. RN/DEPUTY ADMINISTRATOR/MACHINE DEICER ELEMENT WINDER TO OBTAIN UTI PANEL (MOLECULAR) VIA SWAB COLLECTION METHOD FROM ADULT BRIEF/DIAPER OR PAD IF PATIENT IS INCONTINENT. NOTIFY PROVIDER OF RESULTS AND OBTAIN FURTHER ORDERS. [code = URINARY MOLECULAR TESTING PROTOCOL UP TO 2 PRN RN/MACHINE DEICER ELEMENT WINDER/DEPUTY ADMINISTRATOR VISITS MAY BE PERFORMED FOR S/S OF UTI. RN TO ASSESS, MACHINE DEICER ELEMENT WINDER/DEPUTY ADMINISTRATOR TO OBSERVE INITIATION OF UTI PROTOCOL. RN/DEPUTY ADMINISTRATOR/MACHINE DEICER ELEMENT WINDER TO INSTRUCT PATIENT AND/OR CAREGIVER ON S/S OF UTI TO REPORT TO RN/DEPUTY ADMINISTRATOR/MACHINE DEICER ELEMENT WINDER IF NEW OR WORSENING SYMPTOMS. DRINK PLENTY OF WATER THROUGHOUT THE DAY TO MAINTAIN HYDRATION (UNLESS CONTRAINDICATED.) URINATE WHEN THE URGE IS FELT, DO NOT WAIT. WASH GENITALS DAILY. WIPE FROM FRONT TO BACK AFTER HAVING A BOWEL MOVEMENT. RN/DEPUTY ADMINISTRATOR/MACHINE DEICER ELEMENT WINDER TO OBTAIN MOLECULAR URINE TESTING BY OPTION 1 OR OPTION 2 RN/DEPUTY ADMINISTRATOR/MACHINE DEICER ELEMENT WINDER TO OBTAIN U/A WITH REFLEX TO UTI PANEL (MOLECULAR) VIA CLEAN CATCH URINE AND IF UNABLE TO OBTAIN MAY PERFORM AN IN AND OUT CATH. IF PATIENT HAS INDWELLING CATHETER MAY OBTAIN FROM SAMPLING PORT. RN/DEPUTY ADMINISTRATOR/MACHINE DEICER ELEMENT WINDER TO OBTAIN UTI PANEL (MOLECULAR) VIA SWAB [...] PATIENT WILL BENEFIT FROM PT SERVICES BY [email or web address] Goal Provider Goal - PATIENT WILL BENEFIT [...] UTILIZE PRN VISITS TO PREVENT HOSPITALIZATION BY [email or web address] Goal Provider Goal - PATIENT/CAREGIVER WILL VERBALIZE [...] TO MINIMIZE COMPLICATIONS AND AVOID HOSPITALIZATION BY [email or web address] Goal Provider Goal - PATIENT WILL DEMONSTRATE IMPROVEMENT IN S/S OF UTI TO AVOID HOSPITALIZATION. Encounters Start Date/Time End Date/Time Encounter Type Admission Type Attending Clinicians Care Facility Care Department Encounter ID Discharge Date Discharge Status Discharge Condition Discharge Reason Percent Goals Met 2024-11-14 00:00:00 2025-01-12 00:00:00 Outpatient NEW ADMISSION [facility] [id number] 84.00
--- OUTSIDE RECORDS SUMMARY | 2024-12-27 11:22 | XMS_ITS | Clinical Summary ---
Author Organization [facility] Address [address] [place] [address] Care Team Providers Care Fountain Helper Name Role Phone Fuentes Orellana MD Primary Care Provider [phone] Allergies No known active allergies Medications amLODIPine [...] age to complete this topic Insurance MEDICARE [facility] Care Teams Fountain Helper Relationship Specialty Start Date End Date Fuentes Orellana MD [address] [place] [id number] PCP - General FAMILY PRACTICE 11/29/22
--- OUTSIDE RECORDS SUMMARY | 2024-12-27 11:22 | XMS_ITS | Encounter Summary ---
Author Organization [facility] Address [address] [place] [address] Phone Care Team Providers Care Zipper Lining Folder Name Role Phone Fuentes Orellana MD Primary Care Provider [phone] Brent Dickinson DO Unavailable [phone] Faviola Jiménez OR RN, ORE ROASTER Unavailable Shawnee Mckinney MD Unavailable Chicho Clayton MD Unavailable Lai Lambert OR RN, ORE ROASTER Unavailable [phone] Kami Meneses MD Unavailable [phone] Anette Bond MD Unavailable [phone] Kay Gordon OR RN, ORE ROASTER Unavailable Kami Meneses MD Unavailable [phone] Encounter Details Date Type Department Care Team (Late st Contact Info) Description 08/22/2024 Telephone [facility] [address] [place] [address] Kami Meneses MD [address] [address] Social History Tobacco Use Types Packs/Day Years [...] Job 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 Date 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 [employer] * Telephone Encounter - Elidia Dill - 08/29/2024 8:20 AM CST Please see Dr. Otto message. [employer] * Telephone Encounter - Kami Meneses MD [...] sphincter. This needs to be done at [facility] by me. He will need a urine culture 14 days prior to surgery. Hibiclens shower the night before morning of surgery, vancomycin and gentamicin for antibiotics [employer] documented in this encounter Plan of Treatment Upcoming Encounters Date Type Department Care Team (Late st Contact Info) Description 01/10/2025 1:30 PM CDT Office Visit [facility] [address] [place] [address] Kami Meneses MD [address] [facility] [address] [address] documented as of this encounter Visit Diagnoses Not on filedocumented in this encounter Care Teams Zipper Lining Folder Relationship Specialty Start Date End Date Fuentes Orellana MD [address] [place] [address] PCP - General Family Medicine 07/06/15 Brent Dickinson DO [address] [place] [address] Gastroenterology 06/27/16 Faviola Jiménez APRN, ORE RO[employer]ER [address] [place] [address] Nurse Practitioner Advanced Practice Nurse 07/22/16 Shawnee Mckinney MD [address] [facility] [address] [place] [address] Urologist Urology 06/07/19 Chicho Clayton MD [address] [facility] [address] [place] [address] Oncology 06/13/19 Lai Lambert APRN, ORE ROASTER [address] [place] [address] Nurse Practitioner Advanced Practice Nurse 02/10/23 Kami Meneses MD [address] [facility] [address] [place] [address] Consulting Physician Urology 06/16/23 Anette Bond MD [address] [facility] [address] Consulting Physician Gastroenterology 12/25/22 Kay Gordon APRN, ORE ROASTER [address] [place] [address] Nurse Practitioner Advanced Practice Nurse 06/16/24 Kami Meneses MD [address] [facility] [address] [place] [address] Consulting Physician Urology 08/19/24 documented as of this encounter
--- OUTSIDE RECORDS SUMMARY | 2024-12-27 11:23 | XMS_ITS | Encounter Summary ---
Author Organization [facility] Address [address] [facility] [address] [place] [address] Care Team Providers Care Professor Of Mechanical Engineering Name Role Phone Fuentes Orellana MD Primary Care Provider + [phone] Fuentes Orellana MD Primary Care Provider + [phone] Itz Iyer MD Unavailable [phone] Lupillo Davenport MD Unavailable [phone] Lupillo Davenport MD Unavailable [phone] Shawnee Mckinney MD Unavailable [phone] Chicho Clayton MD Unavailable Newton Weeks MD Unavailable [phone] Maria Guadalupe Palacios RN Unavailable Unava ilable Lupillo Davenport MD Unavailable [phone] Itz Iyer MD Unavailable [phone] Itz Iyer MD Unavailable [phone] Itz Iyer MD Unavailable [phone] Itz Iyer MD Unavailable [phone] Itz Iyer MD Unavailable [phone] Itz Iyer MD Unavailable [phone] Danis Meza SCENE SHIFTER Unavailable [phone] Rater, Antonette SCENE SHIFTER Unavailable Aniceto Foley MD Unavailable [phone] Encounter Details Date Type Department Care Team (Late st Contact Info) Description 11/18/2016 Orders Only [facility] Provider, MD Katie [facility] [place] [address] Social History Tobacco Use Types Packs/Day Years Used Date Smoking Tobacco: Never Assessed Sex and Gender Information Value Date Recorded Sex Assigned at Not on file 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 Gender Identity Not on file Sexual Orientation [...] on filedocumented in this encounter Care Teams Professor Of Mechanical Engineering Relationship Specialty Start Date End Date Fuentes Orellana MD PCP - General 11/28/16 Fuentes Orellana MD PCP - General 07/14/07 11/27/16 Itz Iyer MD [address] [facility] [address] [place] [address] [id number] Consulting Physician Urology 05/31/18 Lupillo Davenport MD [address] [place] [address] Referring Physician Radiation Oncology 05/31/18 Lupillo Davenport MD [address] [place] [address] Referring Physician Radiation Oncology 05/31/18 Shawnee Mckinney MD [address] [facility] [address] [place] [address] Referring Physician Urology 06/03/18 Chicho Clayton MD [address] [facility] [address] [place] [address] Medical Oncologist/Hematologis t Medical Oncology 06/07/18 Newton Weeks MD [address] [facility] [address] [place] [address] Referring Physician Radiation Oncology 06/07/18 Maria Guadalupe Palacios, RN Registered Nurse 06/10/18 Lupillo Davenport MD [address] [place] [address] Referring Physician Radiation Oncology 06/16/18 Itz Iyer MD [address] [address] Consulting Physician Urology 06/17/18 06/17/18 Itz Iyer MD [address] [address] Consulting Physician Urology 06/18/18 06/18/18 Itz Iyer MD [address] [place] [address] Consulting Physician Urology 06/18/18 06/18/18 Itz Iyer MD [address] [place] [address] Consulting Physician Urology 06/22/18 06/22/18 Itz Iyer MD [address] [place] [address] Consulting Physician Urology 07/01/18 07/01/18 Itz Iyer MD [address] [place] [address] Consulting Physician Urology 07/06/18 07/06/18 Danis Meaz NP [address] [place] [address] Nurse Practitioner Urology 10/06/22 Antonette Owens NP [address] [place] [address] Nurse Practitioner Cardiovascular Disease 10/06/22 Aniceto Foley MD [address] [place] [address] Surgeon Vascular Surgery 10/31/22 documented as of this encounter
--- OUTSIDE RECORDS SUMMARY | 2024-12-27 11:23 | XMS_ITS | Encounter Summary ---
Author Organization [facility] Address [address] [place] [address] Phone Care Team Providers Care Transport Conductor Name Role Phone Fuentes Orellana MD Primary Care Provider [phone] Itz Iyer MD Unavailable [phone] Lupillo Davenport MD Unavailable [phone] Lupillo Davenport MD Unavailable [phone] hSawnee Mckinney MD Unavailable [phone] Chicho Clayton MD Unavailable Newton Weeks MD Unavailable Maria Guadalupe Palacios RN Unavailable Unava ilable Lupillo Davenport MD Unavailable [phone] Itz Iyer MD Unavailable [phone] Itz Iyer MD Unavailable [phone] Itz Iyer MD Unavailable [phone] Itz Iyer MD Unavailable [phone] Itz Iyer MD Unavailable [phone] Itz Iyer MD Unavailable [phone] Danis Meza FIELD PIPE LINES SUPERVISOR Unavailable Antonette Owens FIELD PIPE LINES SUPERVISOR Unavailable Aniceto Foley MD Unavailable [phone] Encounter Details Date Type Department Care [...] on file 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 Gender Identity Not on file Sexual Orientation [...] on filedocumented in this encounter Care Teams Transport Conductor Relationship Specialty Start Date End Date Fuentes Orellana MD PCP - General 11/28/16 Itz Iyer MD [address] [facility] [address] [place] [address] Consulting Physician Urology 05/31/18 Lupillo Davenport MD [address] [place] [address] Referring Physician Radiation Oncology 05/31/18 Lupillo Davenport MD [address] [place] [address] Referring Physician Radiation Oncology 05/31/18 Shawnee Mckinney MD [address] [facility] [address] [place] [address] Referring Physician Urology 06/03/18 Chicho Clayton MD [address] [facility] [address] [place] [address] Medical Oncologist/Hematologis t Medical Oncology 06/07/18 Newton Weeks MD [address] [facility] [address] [place] [address] Referring Physician Radiation Oncology 06/07/18 Maria Guadalupe Palacios, RN Registered Nurse 06/10/18 Lupillo Davenport MD [address] [place] [address] [place] [address] Referring Physician Radiation Oncology 06/16/18 Itz Iyer MD [address] [place] [address] Consulting Physician Urology 06/17/18 06/17/18 Itz Iyer MD [address] [address] Consulting Physician Urology 06/18/18 06/18/18 Itz Iyer MD [address] [address] Consulting Physician Urology 06/18/18 06/18/18 Itz Iyer MD [address] [place] [address] Consulting Physician Urology 06/22/18 06/22/18 Itz Iyer MD [address] [place] [address] Consulting Physician Urology 07/01/18 07/01/18 Itz Iyer MD [address] [place] [address] Consulting Physician Urology 07/06/18 07/06/18 Danis Meza NP [address] [place] [address] Nurse Practitioner Urology 10/06/22 Antonette Owens NP [address] [place] [address] Nurse Practitioner Cardiovascular Disease 10/06/22 Aniceto Foley MD [address] [place] [address] Surgeon Vascular Surgery 10/31/22 documented as of this encounter
--- OUTSIDE RECORDS SUMMARY | 2024-12-27 11:23 | XMS_ITS | Encounter Summary ---
Author Organization [facility] Address [address] [facility] [place] [address] Phone Care Team Providers Care Telemedicine Physician Name Role Phone Fuentes Orellana MD Primary Care Provider Brent Dickinson DO Unavailable [phone] Faviola Jiménez RAIL TRACTOR OPERATOR, BODY SHOP MECHANIC Unavailable Shawnee Mckinney MD Unavailable Chicho Clayton MD Unavailable Lai Lambert RAIL TRACTOR OPERATOR, BODY SHOP MECHANIC Unavailable Kami Meneses MD Unavailable [phone] Anette Bond MD Unavailable [phone] Kay Gordon APRN, BODY SHOP MECHANIC Unavailable Kami Meneses MD Unavailable [phone] Reason for Visit * Reason Comments Medication Refill Encounter Details Date Type Department Care Team (Late st Contact Info) Description 11/12/2022 Refill [facility] - Gastroenterology - [place] [address] [place] [id number] Ingrid Mccloud Ashley, PAC [address] [place] [address] Medication Refill Social History Tobacco Use Types [...] 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 Not on file Not [...] 01/10/2025 1:30 PM CDT Office Visit [facility] [address] [place] [phone] Kami Meneses MD [address] [place], [address] [address] documented as of this encounter Visit Diagnoses Not on filedocumented in this encounter Care Teams Telemedicine Physician Relationship Specialty Start Date End Date Fuentes Orellana MD [address] [facility] [address] PCP - General Family Medicine 07/06/15 Brent Dickinson DO [address] [facility] [place] [address] Gastroenterology 06/27/16 Faviola Jiménez, RAIL TRACTOR OPERATOR, BODY SHOP MECHANIC [address] [place] [address] Nurse Practitioner Advanced Practice Nurse 07/22/16 Shawnee Mckinney MD [address] [facility] [address] [place] [address] Urologist Urology 06/07/19 Chicho Clayton MD [address] [facility] [address] [place] [address] Oncology 06/13/19 Lai Lambert APRN, BODY SHOP MECHANIC [address] [place] [address] Nurse Practitioner Advanced Practice Nurse 02/10/23 Kami Meneses MD #[address] [address] Consulting Physician Urology 06/16/23 Anette Bond MD [address] [place] [address] Consulting Physician Gastroenterology 12/25/22 Kay Gordon APRN, BODY SHOP MECHANIC [address] [place] [address] Nurse Practitioner Advanced Practice Nurse 06/16/24 Kami Meneses MD [address]2 [facility], [address] [address] Consulting Physician Urology 08/19/24 documented as of this encounter
--- OUTSIDE RECORDS SUMMARY | 2024-12-27 11:23 | XMS_ITS | Clinical Summary ---
Author Organization Unknown Care Team Providers Care Regional Director Of Finance Name Role Phone PRABHJOT ESCOBAR, KIRK Unavailable Mikey MARTIN RN, ABI Unavailable Unavailable LOIS STRUCTURAL TECHNICIAN, RICARDA Unavailable Unavailable MARCE PT, YANET Unavailable Unavailable VICTOR MAN[employer]EL FINISHER [employer], DAPHNE Unavailable Unavailpatricia PAGE OT, TAMIE Unavailable Unavailable Payers Payer Name Policy Type Policy Number Effective Date Expira tion Date MEDICARE.[employer].[facility] [id number] Problems Condition Name Condition Details Condition Category [...] 08-31 00:00: 00 ATHSCL HEART DISEASE OF [place] CORONARY ARTERY W/O ANG PCTRS Active 08-31 [...] SPECIFIED FUNCTIONAL IMPLANTS Active 08-31 00:00: 00 INTERMEDIATE (CURRENT) USE OF ASPIRIN Active 08-31 00:00: [...] 325 mg tablet 11-09 00:00: 00 Yes [id number] PAIN 1 tablet DAILY 1 tablet DAILY (route: oral) Med Classific ation: Analgesic , Anti-infl ammatory or Antipyret ic sulfamethox azole 800 mg-trimetho prim 160 mg tablet 11-12 00:00: 00 11-19 23:59 :00 No [id number] PROPHYLATIC 1 tablet 2 TIMES DAILY 1 tablet 2 TIMES DAILY (route: oral) Med Classific ation: Anti-Infe ctive Agents metoprolol tartrate 25 mg tablet 11-03 00:00: 00 Yes [id number] HIGH BLOOD PRESSURE 1 tablet 2 TIMES DAILY 1 tablet 2 TIMES DAILY (route: oral) Med Classific ation: Cardiovas cular Therapy Agents rosuvastati n 40 mg tablet 11-02 00:00: 00 Yes [id number] CHOLESTEROL 1 tablet DAILY 1 tablet DAILY (route: oral) Med Classific ation: Cardiovas cular Therapy Agents Brilinta 60 mg tablet 11-12 00:00: 00 Yes [id number] BLOOD THINNER 1 tablet 2 TIMES DAILY 1 tablet 2 TIMES DAILY (route: oral) Med Classific ation: Hematolog ical Agents acetaminoph en 500 mg tablet 11-12 00:00: 00 Yes [id number] NEEDED FOR PAIN 1-5/10 ON A 1-10 SCALE OR FEVER GREATER THAN 100.1 2 tablet EVERY 6 HOURS 2 tablet EVERY 6 HOURS (route: oral) Med Classific ation: Analgesic , Anti-infl ammatory or Antipyret ic alendronate 70 mg tablet 11-12 00:00: 00 Yes [id number] OSTEOARTHRI TIS 1 tablet WEEKLY 1 tablet WEEKLY (route: oral) Med Classific ation: Endocrine allopurinol 300 mg tablet 11-12 00:00: 00 Yes [id number] GOUT 1 tablet DAILY 1 tablet DAILY (route: oral) Med Classific ation: Gout and Hyperuric emia Therapy alprazolam 0.25 mg tablet 11-12 00:00: 00 Yes [id number] NEEDED FOR ANXIETY 1 tablet 3 TIMES DAILY 1 tablet 3 TIMES DAILY (route: oral) Med Classific ation: Central Nervous System Agents amlodipine 5 mg tablet 11-12 00:00: 00 Yes [id number] HIGH BLOOD PRESSURE 1 tablet DAILY 1 tablet DAILY (route: oral) Med Classific ation: Cardiovas cular Therapy Agents cephalexin 500 mg capsule 11-12 00:00: 00 11-18 23:59 :00 No [id number] PROPHYLATIC 1 capsule 2 TIMES DAILY 1 capsule 2 TIMES DAILY (route: oral) Med Classific ation: Anti-Infe ctive Agents chlorthalid one 25 mg tablet 11-12 00:00: 00 Yes [id number] HIGH BLOOD PRESSURE 1 tablet DAILY 1 tablet DAILY (route: oral) Med Classific ation: Cardiovas cular Therapy Agents Kerendia 10 mg tablet 11-12 00:00: 00 Yes [id number] KIDNEY DISEASE 1 tablet DAILY 1 tablet DAILY (route: oral) Med Classific ation: Cardiovas cular Therapy Agents pantoprazol e 40 mg tablet,ingrid yed release 11-12 00:00: 00 Yes [id number] GASTROESOPH AGEAL REFULX DISEASE 1 tablet DAILY 1 tablet DAILY (route: oral) Med Classific ation: Gastroint estinal Therapy Agents telmisartan 80 mg tablet 11-12 00:00: 00 Yes [id number] HIGH BLOOD PRESSURE 1 tablet DAILY 1 tablet DAILY (route: oral) Med Classific ation: Cardiovas cular Therapy Agents Tradjenta 5 mg tablet 11-12 00:00: 00 Yes [id number] DIABETES 1 tablet DAILY 1 tablet DAILY (route: oral) Med Classific ation: Endocrine nitroglycer in 0.3 mg sublingual tablet 11-12 00:00: 00 Yes [id number] NEEDED FOR CHEST PAIN 1 tablet EVERY 5 MINUTES TIMES 3 1 tablet EVERY 5 MINUTES TIMES 3 (route: sublingual ) Med Classific ation: Cardiovas cular Therapy Agents glimepiride 1 mg tablet 12-13 00:00: 00 Yes [id number] DIABETES 1 mg 2 TIMES DAILY 1 mg 2 TIMES DAILY (route: oral) Alternate Route: BY MOUTH. Med Classific ation: Endocrine Gvoke 1 mg/0.2 mL subcutaneou s solution 12-13 00:00: 00 Yes [id number] LOW BLOOD SUGAR Per instruc tions NEEDED [...] RICK MD RN TO OBSERVE AND ASSESS, STRUCTURAL TECHNICIAN/FLAP MAKER TO OBSERVE FOR RISK FOR FALLS AND INSTRUCT IN FALL PREVENTION, HOME SAFETY, MEDICATION MANAGEMENT, INFECTION PREVENTION, AND NUTRITION MANAGEMENT. RN/STRUCTURAL TECHNICIAN/FLAP MAKER NURSE MAY PERFORM O2 SATURATION LEVEL ON ADMISSION, EVERY VISIT AND PRN FOR SHORTNESS OF BREATH FOR RN TO ASSESS/STRUCTURAL TECHNICIAN TO OBSERVE PATIENT, WITH NOTIFICATION TO THE PHYSICIAN IF SATURATION IS 90% IN THE ABSENCE OF MORE SPECIFIC PARAMETERS FROM THE PHYSICIAN. AGENCY MAY PERFORM A RESUMPTION OF CARE VISIT FOLLOWING ANY HOSPITAL ADMISSION. RN/STRUCTURAL TECHNICIAN/FLAP MAKER TO MONITOR CO-MORBID CONDITIONS LISTED ON THE PLAN OF CARE AND ANY NEW CONDITIONS THAT PRESENT THEMSELVES DURING THIS EPISODE TO IDENTIFY CHANGES AND INTERVENE TO MINIMIZE COMPLICATIONS. [code = RN TO OBSERVE, ASSESS, EVALUATE, AND DEVELOP AN INDIVIDUALIZED PLAN OF CARE. AGENCY MAY ACCEPT ORDERS FROM CONSULTING PHYSICIANS KIRK RICK MD RN TO OBSERVE AND ASSESS, STRUCTURAL TECHNICIAN/FLAP MAKER TO OBSERVE FOR RISK FOR FALLS AND INSTRUCT IN FALL PREVENTION, HOME SAFETY, MEDICATION MANAGEMENT, INFECTION PREVENTION, AND NUTRITION MANAGEMENT. RN/STRUCTURAL TECHNICIAN/FLAP MAKER NURSE MAY PERFORM O2 SATURATION LEVEL ON ADMISSION, EVERY VISIT AND PRN FOR SHORTNESS OF BREATH FOR RN TO ASSESS/STRUCTURAL TECHNICIAN TO OBSERVE PATIENT, WITH NOTIFICATION TO THE PHYSICIAN IF SATURATION IS 90% IN THE ABSENCE OF MORE SPECIFIC PARAMETERS FROM THE PHYSICIAN. AGENCY MAY PERFORM A RESUMPTION OF CARE VISIT FOLLOWING ANY HOSPITAL ADMISSION. RN/STRUCTURAL TECHNICIAN/FLAP MAKER TO MONITOR CO-MORBID CONDITIONS LISTED ON [...] OT EVALUATION] Future Scheduled Test MEDICATION MANAGEMENT; RN/STRUCTURAL TECHNICIAN/FLAP MAKER TO REVIEW MEDICATIONS FOR INTERACTIONS, EFFECTIVENESS OF DRUG THERAPY, AND SIGNS/SYMPTOMS OF ADVERSE REACTIONS. MAY INSTRUCT AND REINFORCE MEDICATION TEACHING RELATED TO THE USE OF MEDICATIONS, DOSAGE, FREQUENCY, PURPOSE, SIDE EFFECTS, AND TO REPORT COMPLICATIONS. [code = MEDICATION MANAGEMENT; RN/STRUCTURAL TECHNICIAN/FLAP MAKER TO REVIEW MEDICATIONS FOR INTERACTIONS, EFFECTIVENESS OF DRUG THERAPY, AND SIGNS/SYMPTOMS OF ADVERSE REACTIONS. MAY INSTRUCT AND REINFORCE MEDICATION TEACHING RELATED TO THE USE OF MEDICATIONS, DOSAGE, FREQUENCY, PURPOSE, SIDE EFFECTS, AND TO REPORT COMPLICATIONS.] Future Scheduled Test ANTICOAGUL ATION MANAGEMENT; RN TO ASSESS AND TEACH, STRUCTURAL TECHNICIAN/FLAP MAKER TO OBSERVE/TEACH/MONITOR EFFECTIVENESS OF ANTICOAGULATION THERAPY. RN/STRUCTURAL TECHNICIAN/FLAP MAKER TO INSTRUCT ON SIGNS AND SYMPTOMS OF BLEEDING/ADVERSE REACTIONS TO REPORT TO PHYSICIAN. RN/STRUCTURAL TECHNICIAN/FLAP MAKER TO PERFORM PT/INR VIA VENIPUNCTURE OR COAGUCHECK PRN PHYSICIAN ORDERSS RN/STRUCTURAL TECHNICIAN/FLAP MAKER TO FAX/CALL IN RESULTS TO PHYSICIAN TIMELY [code = ANTICOAGULATION MANAGEMENT; RN TO ASSESS AND TEACH, STRUCTURAL TECHNICIAN/FLAP MAKER TO OBSERVE/TEACH/MONITOR EFFECTIVENESS OF ANTICOAGULATION THERAPY. RN/STRUCTURAL TECHNICIAN/FLAP MAKER TO INSTRUCT ON SIGNS AND SYMPTOMS OF BLEEDING/ADVERSE REACTIONS TO REPORT TO PHYSICIAN. RN/STRUCTURAL TECHNICIAN/FLAP MAKER TO PERFORM PT/INR VIA VENIPUNCTURE OR COAGUCHECK PRN PHYSICIAN ORDERSS RN/STRUCTURAL TECHNICIAN/FLAP MAKER TO FAX/CALL IN RESULTS TO PHYSICIAN TIMELY ] Future Scheduled Test FALL REDUC TION MANAGEMENT; RN TO ASSESS AND OBSERVE, STRUCTURAL TECHNICIAN/FLAP MAKER TO OBSERVE FALL RISK FACTORS AND EDUCATE PATIENT/CAREGIVER ON STRATEGIES TO MINIMIZE THE RISK OF FALLING. [code = FALL REDUCTION MANAGEMENT; RN TO ASSESS AND OBSERVE, STRUCTURAL TECHNICIAN/FLAP MAKER TO OBSERVE FALL RISK FACTORS AND EDUCATE PATIENT/CAREGIVER ON STRATEGIES TO MINIMIZE THE RISK OF FALLING.] Future Scheduled Test GENITOURIN KEZIA MANAGEMENT; RN TO ASSESS AND TEACH, STRUCTURAL TECHNICIAN/FLAP MAKER TO OBSERVE AND TEACH RELATED TO ALTERED GENITOURINARY STATUS TO MINIMIZE COMPLICATIONS AND REDUCE HOSPITALIZATION. [code = GENITOURINARY MANAGEMENT; RN TO ASSESS AND TEACH, STRUCTURAL TECHNICIAN/FLAP MAKER TO OBSERVE AND TEACH RELATED TO ALTERED GENITOURINARY STATUS TO MINIMIZE COMPLICATIONS AND REDUCE HOSPITALIZATION.] Future Scheduled Test URINARY IN CONTINENCE MANAGEMENT; RN TO ASSESS AND TEACH, STRUCTURAL TECHNICIAN/LVNTO OBSERVE AND TEACH MANAGEMENT OF URINARY INCONTINENCE. TEACH/INSTRUCT ON PREVENTING INFECTION AND SKIN BREAKDOWN. RN/STRUCTURAL TECHNICIAN/FLAP MAKER MAY INSTRUCT IN BLADDER TRAINING PROGRAM INDICATED. [code = URINARY INCONTINENCE MANAGEMENT; RN TO ASSESS AND TEACH, STRUCTURAL TECHNICIAN/LVNTO OBSERVE AND TEACH MANAGEMENT OF URINARY INCONTINENCE. TEACH/INSTRUCT ON PREVENTING INFECTION AND SKIN BREAKDOWN. RN/STRUCTURAL TECHNICIAN/FLAP MAKER MAY INSTRUCT IN BLADDER TRAINING PROGRAM INDICATED.] Future Scheduled Test DIABETES M ANAGEMENT; RN TO ASSESS AND TEACH, FLAP MAKER/STRUCTURAL TECHNICIAN TO OBSERVE AND TEACH INSTRUCTIONS OF DIABETIC CARE TO INCLUDE: DIET DIABETIC SKIN CARE, SIGNS AND SYMPTOMS OF HYPO/HYPERGLYCEMIA, PROPER ADMINISTRATION OF DIABETIC MEDICATION. RN/FLAP MAKER/STRUCTURAL TECHNICIAN TO INSTRUCT ON DIABETIC FOOT CARE AND MONITOR FOR SKIN LESIONS ON LOWER EXTREMITIES. BLOOD GLUCOSE TESTING DAILY RN TO ASSESS AND TEACH, FLAP MAKER/STRUCTURAL TECHNICIAN TO OBSERVE AND TEACH PATIENT/CAREGIVER ABILITY TO PERFORM AND RECORD BLOOD GLUCOSE TESTING ORDERED AND TO REPORT ABNORMAL FINDINGS TO PHYSICIAN. RN/FLAP MAKER/STRUCTURAL TECHNICIAN MAY PERFORM BLOOD GLUCOSE TEST NEEDED. RN/FLAP MAKER/STRUCTURAL TECHNICIAN TO REPORT TO PHYSICIAN BLOOD GLUCOSE READINGS GREATER THAN 300 OR LESS THAN 70 RN/FLAP MAKER/STRUCTURAL TECHNICIAN TO INSTRUCT PATIENT ON IMPORTANCE OF HGBA1C MONITORING, KIDNEY FUNCTION TEST, EYE AND FOOT EXAMS. [code = DIABETES MANAGEMENT; RN TO ASSESS AND TEACH, FLAP MAKER/STRUCTURAL TECHNICIAN TO OBSERVE AND TEACH INSTRUCTIONS OF DIABETIC CARE TO INCLUDE: DIET DIABETIC SKIN CARE, SIGNS AND SYMPTOMS OF HYPO/HYPERGLYCEMIA, PROPER ADMINISTRATION OF DIABETIC MEDICATION. RN/FLAP MAKER/STRUCTURAL TECHNICIAN TO INSTRUCT ON DIABETIC FOOT CARE AND MONITOR FOR SKIN LESIONS ON LOWER EXTREMITIES. BLOOD GLUCOSE TESTING DAILY RN TO ASSESS AND TEACH, FLAP MAKER/STRUCTURAL TECHNICIAN TO OBSERVE AND TEACH PATIENT/CAREGIVER ABILITY TO PERFORM AND RECORD BLOOD GLUCOSE TESTING ORDERED AND TO REPORT ABNORMAL FINDINGS TO PHYSICIAN. RN/FLAP MAKER/STRUCTURAL TECHNICIAN MAY PERFORM BLOOD GLUCOSE TEST NEEDED. RN/FLAP MAKER/STRUCTURAL TECHNICIAN TO REPORT TO PHYSICIAN BLOOD GLUCOSE READINGS GREATER THAN 300 OR LESS THAN 70 RN/FLAP MAKER/STRUCTURAL TECHNICIAN TO INSTRUCT PATIENT ON IMPORTANCE OF HGBA1C MONITORING, KIDNEY FUNCTION TEST, EYE AND FOOT EXAMS.] Future Scheduled Test PAIN MANAG EMENT; RN TO ASSESS AND TEACH, FLAP MAKER/STRUCTURAL TECHNICIAN TO OBSERVE AND TEACH AND PROVIDE EDUCATION ON PAIN MANAGEMENT TECHNIQUES. [code = PAIN MANAGEMENT; RN TO ASSESS AND TEACH, FLAP MAKER/STRUCTURAL TECHNICIAN TO OBSERVE AND TEACH AND PROVIDE EDUCATION ON PAIN MANAGEMENT TECHNIQUES.] Future Scheduled Test RN/STRUCTURAL TECHNICIAN/FLAP MAKER TO PERFORM/TEACH INCISION CARE TO SUPRAPUBIC AND PERINEUM AREA: KEEP CLEAN AND DRY. INSPECT DAILY. NO LOTIONS OR OINTMENTS TO INCISIONS. MAY SHOWER AND PAT INCISIONS DRY. LEAVE ADHESIVE INTACT. [code = RN/STRUCTURAL TECHNICIAN/FLAP MAKER TO PERFORM/TEACH INCISION CARE TO SUPRAPUBIC AND PERINEUM AREA: KEEP CLEAN AND DRY. INSPECT DAILY. NO LOTIONS OR OINTMENTS TO INCISIONS. MAY SHOWER AND PAT INCISIONS DRY. LEAVE ADHESIVE INTACT. ] Future Scheduled Test PRN VISITS ; NUMBER OF RN/STRUCTURAL TECHNICIAN/FLAP MAKER VISITS: 1 RN/STRUCTURAL TECHNICIAN/FLAP MAKER TO PERFORM: ASSESSMENT AND EDUCATION FOR THE FOLLOWING REASONS: INTEGUMENTARY/INCISION COMPLICATIONS [code = PRN VISITS; NUMBER OF RN/STRUCTURAL TECHNICIAN/FLAP MAKER VISITS: 1 RN/STRUCTURAL TECHNICIAN/FLAP MAKER TO PERFORM: ASSESSMENT AND EDUCATION FOR THE FOLLOWING REASONS: INTEGUMENTARY/INCISION COMPLICATIONS] Future Scheduled Test RISK FOR H OSPITALIZATION; RN TO ASSESS/TEACH, FLAP MAKER/STRUCTURAL TECHNICIAN TO OBSERVE/TEACH PATIENT/CAREGIVER ON RISK FOR HOSPITALIZATION/EMERGENCY ROOM VISITS, TEACH SIGNS AND SYMPTOMS THAT PUT PATIENT AT RISK, WHEN TO NOTIFY NURSE/PHYSICIAN OF COMPLICATIONS/DECLINE, AND WHEN TO CALL 911. [code = RISK FOR HOSPITALIZATION; RN TO ASSESS/TEACH, FLAP MAKER/STRUCTURAL TECHNICIAN TO OBSERVE/TEACH PATIENT/CAREGIVER ON RISK FOR HOSPITALIZATION/EMERGENCY ROOM VISITS, TEACH SIGNS AND SYMPTOMS THAT PUT PATIENT AT RISK, WHEN TO NOTIFY NURSE/PHYSICIAN OF COMPLICATIONS/DECLINE, AND WHEN TO CALL 911.] Future Scheduled Test CARDIOVASC ULAR SYSTEM; RN TO ASSESS/TEACH, STRUCTURAL TECHNICIAN/FLAP MAKER TO OBSERVE/TEACH RELATED TO ALTERED CARDIOVASCULAR STATUS TO MINIMIZE COMPLICATIONS AND REDUCE HOSPITALIZATION. [code = CARDIOVASCULAR SYSTEM; RN TO ASSESS/TEACH, STRUCTURAL TECHNICIAN/FLAP MAKER TO OBSERVE/TEACH RELATED TO ALTERED CARDIOVASCULAR STATUS TO MINIMIZE COMPLICATIONS AND REDUCE HOSPITALIZATION.] Future Scheduled Test HYPERTENSI ON MANAGEMENT; RN TO ASSESS AND TEACH, STRUCTURAL TECHNICIAN/FLAP MAKER TO OBSERVE AND TEACH WARNING SIGNS AND SYMPTOMS TO AVOID HOSPITALIZATION. [code = HYPERTENSION MANAGEMENT; RN TO ASSESS AND TEACH, STRUCTURAL TECHNICIAN/FLAP MAKER TO OBSERVE AND TEACH WARNING SIGNS AND SYMPTOMS TO AVOID HOSPITALIZATION.] Future Scheduled Test URINARY MO LECULAR TESTING PROTOCOL UP TO 2 PRN RN/STRUCTURAL TECHNICIAN/FLAP MAKER VISITS MAY BE PERFORMED FOR S/S OF UTI. RN TO ASSESS, STRUCTURAL TECHNICIAN/FLAP MAKER TO OBSERVE INITIATION OF UTI PROTOCOL. RN/FLAP MAKER/STRUCTURAL TECHNICIAN TO INSTRUCT PATIENT AND/OR CAREGIVER ON S/S OF UTI TO REPORT TO RN/FLAP MAKER/STRUCTURAL TECHNICIAN IF NEW OR WORSENING SYMPTOMS. DRINK PLENTY OF WATER THROUGHOUT THE DAY TO MAINTAIN HYDRATION (UNLESS CONTRAINDICATED.) URINATE WHEN THE URGE IS FELT, DO NOT WAIT. WASH GENITALS DAILY. WIPE FROM FRONT TO BACK AFTER HAVING A BOWEL MOVEMENT. RN/FLAP MAKER/STRUCTURAL TECHNICIAN TO OBTAIN MOLECULAR URINE TESTING BY OPTION 1 OR OPTION 2 RN/FLAP MAKER/STRUCTURAL TECHNICIAN TO OBTAIN U/A WITH REFLEX TO UTI PANEL (MOLECULAR) VIA CLEAN CATCH URINE AND IF UNABLE TO OBTAIN MAY PERFORM AN IN AND OUT CATH. IF PATIENT HAS INDWELLING CATHETER MAY OBTAIN FROM SAMPLING PORT. RN/FLAP MAKER/STRUCTURAL TECHNICIAN TO OBTAIN UTI PANEL (MOLECULAR) VIA SWAB COLLECTION METHOD FROM ADULT BRIEF/DIAPER OR PAD IF PATIENT IS INCONTINENT. NOTIFY PROVIDER OF RESULTS AND OBTAIN FURTHER ORDERS. [code = URINARY MOLECULAR TESTING PROTOCOL UP TO 2 PRN RN/STRUCTURAL TECHNICIAN/FLAP MAKER VISITS MAY BE PERFORMED FOR S/S OF UTI. RN TO ASSESS, STRUCTURAL TECHNICIAN/FLAP MAKER TO OBSERVE INITIATION OF UTI PROTOCOL. RN/FLAP MAKER/STRUCTURAL TECHNICIAN TO INSTRUCT PATIENT AND/OR CAREGIVER ON S/S OF UTI TO REPORT TO RN/FLAP MAKER/STRUCTURAL TECHNICIAN IF NEW OR WORSENING SYMPTOMS. DRINK PLENTY OF WATER THROUGHOUT THE DAY TO MAINTAIN HYDRATION (UNLESS CONTRAINDICATED.) URINATE WHEN THE URGE IS FELT, DO NOT WAIT. WASH GENITALS DAILY. WIPE FROM FRONT TO BACK AFTER HAVING A BOWEL MOVEMENT. RN/FLAP MAKER/STRUCTURAL TECHNICIAN TO OBTAIN MOLECULAR URINE TESTING BY OPTION 1 OR OPTION 2 RN/FLAP MAKER/STRUCTURAL TECHNICIAN TO OBTAIN U/A WITH REFLEX TO UTI PANEL (MOLECULAR) VIA CLEAN CATCH URINE AND IF UNABLE TO OBTAIN MAY PERFORM AN IN AND OUT CATH. IF PATIENT HAS INDWELLING CATHETER MAY OBTAIN FROM SAMPLING PORT. RN/FLAP MAKER/STRUCTURAL TECHNICIAN TO OBTAIN UTI PANEL (MOLECULAR) VIA SWAB [...] Outpatient NEW ADMISSION ABI MARTIN [facility] [id number] [phone]
--- OUTSIDE RECORDS SUMMARY | 2024-12-27 11:23 | XMS_ITS | Clinical Summary ---
Author Organization [facility] [address] Address [address] [place] [address] Care Team Providers Care Hot Repairman Name Role Phone Fuentes Orellana MD Primary Care Provider Itz Iyer MD Unavailable [phone] Shawnee Mckinney MD Unavailable [phone] Chicho Clayton MD Unavailable Maria Guadalupe Palacios RN Unavailable Unava ilable Lupillo Davenport MD Unavailable [phone] Danis Meza ELECTRICAL PRODUCTS ENGINEER Unavailable Antonette Owens NP Unavailable Aniceto Foley MD Unavailable [phone] Allergies No known active allergies Medications [...] immediate release tabletIndicatio ns:Coronary artery disease involving otoe-[place]ouria coronary artery of o[place] heart without angina pectoris Take 1 tablet [...] (10/21/2022): Added automatically from request for surgery [id number] Assessment & Plan (10/30/2022 2:56 PM COMMUNITY ASSISTANT): - OR 3/2 for planned R CEA - OU status, Q2h NV/VS monitoring - Bedrest today, OOB/PT POD #1 - SBP goal 100-160, nicardipine for elevated BP - Continue aspirin and statin - Plan to stager home medications and resume overnight Atherosclerosis of o[place] ar teries of extremities with intermittent claudication, bilateral legs 06/03/2022 Melanoma 01/10/2021 Anxiety 01/10/2021 DM (diabetes mellitus) 01/10/2021 Assessment & Plan (10/30/2022 9:59 AM COMMUNITY ASSISTANT): - A1c 7.6% 10/2022 - SSI while inpatient - CC diet when eating Elevated left ventricular end-diastolic pressure (LVEDP) 11/15/2019 Encounter for surgical after care following surgery of circulatory system 05/20/2019 Prostate cancer 09/10/2018 Assessment & Plan (10/27/2018 9:53 AM COMMUNITY ASSISTANT): Follows with urology, has his PSA monitored it is increasing, but still WNL 1.4 Assessment & Plan (09/22/2018 11:35 AM COMMUNITY ASSISTANT): Has close follow up with his oncologist. His PSA was slightly elevated on last check. Hyperlipidemia 09/21/2017 Assessment & Plan (06/30/2018 9:38 AM CDT): His last lipid panel was within acceptable range; he will continue on a high intensity statin. Assessment & Plan (09/21/2017 11:34 AM COMMUNITY ASSISTANT): Continue Lipitor 40 mg daily. Essential hypertension 07/20/2017 Assessment & Plan (10/30/2022 2:57 PM COMMUNITY ASSISTANT): - Tight BP goals post-procedure - Continue home medications as indicated by BP goals as above, staggering overnight for gentle BP control Assessment & Plan (10/27/2018 9:54 AM COMMUNITY ASSISTANT): Hypertension is unchanged. Dietary sodium restriction. Blood pressure will be reassessed in 4 weeks. Assessment & Plan (09/22/2018 11:38 AM COMMUNITY ASSISTANT): Hypertension remains elevated. He is increasing his [...] today Assessment & Plan (09/21/2017 11:33 AM COMMUNITY ASSISTANT): Blood pressure is well controlled today. Last visit we added HCTZ 12.5 mg daily. Continue current medications Assessment & Plan (08/10/2017 11:26 AM COMMUNITY ASSISTANT): Blood pressure is not controlled. Add hydrochlorothiazide 12.5 mg p.o. daily. He is compliant with medications but always add salt to food which I advised him not to do that. Assessment & Plan (07/20/2017 9:19 AM COMMUNITY ASSISTANT): Blood pressure remains uncontrolled. We will order renal Doppler ultrasound to rule out renal artery stenosis given the fact that he has peripheral vascular disease and coronary artery disease. I will increase amlodipine from 5-10 mg p.o. daily. If that does not control the blood pressure we will add hydrochlorothiazide 12.5 mg p.o. Daily. Coronary artery disease invo lving otoe-missouria coronary artery of o[place] heart without angina pectoris 07/20/2017 Assessment & Plan (10/30/2022 9:58 AM COMMUNITY ASSISTANT): - Continue home medications as able - Maintained on Brilinta as an outpatient; held 1 week prior to OR - Will discuss with surgery team when to safely resume post-procedure Assessment & Plan (10/27/2018 9:59 AM COMMUNITY ASSISTANT): Coronary artery disease is improving with lifestyle modifications. Continue current treatment regimen. Cardiac status will be reassessed in 3 months. No chest pain. Minimal SOB. Continue asa, statin, brilinta Assessment & Plan (09/22/2018 11:36 AM COMMUNITY ASSISTANT): Coronary artery disease is unchanged. Regular aerobic [...] BB. Assessment & Plan (09/21/2017 11:33 AM COMMUNITY ASSISTANT): Continue aspirin, Brilinta, Toprol XL and atorvastatin. Assessment & Plan (08/10/2017 11:27 AM COMMUNITY ASSISTANT): Continue Brilinta and aspirin. Asymptomatic. Assessment & Plan (07/20/2017 9:19 AM COMMUNITY ASSISTANT): Continue aspirin, Brilinta, Lipitor , metoprolol PVD (peripheral vascular disease) 07/20/2017 Assessment & Plan (10/27/2018 9:21 AM COMMUNITY ASSISTANT): S/P bilateral ALVA angioplasty; right EIA angioplasty/stent 11/21/14. S/P aortoiliac angioplasty/stent 05/28/09. Continues on asa, statin and brilinta Assessment & Plan (09/21/2017 11:34 AM COMMUNITY ASSISTANT): He follows up with vascular surgery at [facility] Assessment & Plan (08/10/2017 11:27 AM COMMUNITY ASSISTANT): Renal ultrasound suggest more than 60% stenosis in the right renal artery and infrarenal stenosis 50-70%. He follows up with Dr. Foley from vascular surgery at [facility] Assessment & Plan (07/20/2017 9:20 AM COMMUNITY ASSISTANT): Patient will follow up with Dr. Foley from vascular surgery. He does have some claudication when he walks. 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 Has stopped caffeine intake. Has [...] implant or graft 6 02/09/2019 Atherosclerosis of o[place]ou[place] artery of extremity 04/15/20 16 02/09/2019 Assessment & Plan (09/22/2018 11:26 AM COMMUNITY ASSISTANT): 80% circumflex s/p RICHARD. 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 {plan; hypertension for POC:[id number]} Blood pressure will be reassessed {plan; follow-up 2 weeks/4weeks/3months:[id number]}. Increase amolodipine to 10 mg Continue all [...] Description 12/09/2024 1:00 PM CDT Office Visit [facility] Medical Group Cardiology [address] [place] [phone] Kay Ward NP Coronary artery disease of otoe-[place]ou[place] artery of otoe-[place]ou[place] heart with stable angina pectoris (Primary Dx); Orthostatic hypotension; LVH (left ventricular hypertrophy); PVD (peripheral vascular disease); Preoperative cardiovascular examination 11/10/2024 Telephone [facility] Home Care Services [address] [place] [address] Cheryl Bundy 11/09/2024 7:30 AM CDT - 11/09/2024 10:00 AM CDT Surgery [facility] Operating Room [address] [place] [phone] Kami Meneses MD Cystoscopy 11/09/2024 7:30 AM CDT Anesthesia Event [facility] Operating Room [address] [place] [phone] Lai Gregg DO [place], Justin Kyle, CRNA 11/09/2024 5:14 AM CDT - 11/12/2024 2:30 PM CDT Hospital Encounter [address] [place] [address] [phone] Kami Meneses MD Intrinsic urethral sphincter deficiency (Primary Dx) Discharge Disposition: Discharge to home, home health skilled care 10/26/2024 12:45 PM COMMUNITY ASSISTANT Pre-Admission Testing [facility] Pre Anesthesia Testing [address] [place] [address] Stress incontinence 10/20/2024 10:30 AM COMMUNITY ASSISTANT Office Visit [facility] Medical Group Cardiology [address] [place] [address] Kay Ward NP Coronary artery disease of o[place]e-[place]ou[place] artery of otoe-[place]ou[place] heart with stable angina pectoris (Primary Dx); Preoperative cardiovascular examination; Orthostatic hypotension; LVH (left ventricular hypertrophy); PVD (peripheral vascular disease) 10/13/2024 Telephone [facility] Cardiology [address] [place] [address] Mariangel Palmer MD cardiac clearance from Last 3 Months Immunizations Immunization Administration [...] INTRAOCULAR LENS IMPLANT Right ANGIO SELECTIVE CAROTID CONE EXAMINER RIGHT 10/15/2022 Right MELANOMA RESECTION 12/17/2014 Right [...] Former Cigarettes 1.5 19 1 966 - 1984 Passive Smoke Exposure: Past Smokeless Tobacco: Never Tobacco Cessation:Counseling Given: Not Answered Alcohol Use Standard Drinks/Week Comments Yes 12 (1 standard drink = 0.6 oz pu re alcohol) [facility] Utilities Answer Date Recorded In the past 12 months has e [employer], gas, oil, or water [email or web address] threatened to shut off services in your [...] often do you attend chur ch or bahai services? More than 4 times per year 11/11/2024 Do you belong to any clubs o r organizations such as bahai groups, unions, fraternal or athletic groups, or [...] time in the past 12 m [facility], were you homeless or living in a half-way (including now)? No 11/11/2024 Personal Safety Answer Date Recorded Have you ever been in or are you currently in a harmful physical or emotional relationship or is someone making you feel afraid or unsafe? Denies 11/09/2024 Sex and Gender Information Value Date Recorded Sex Assigned at Not on file Legal Sex Male 12:32 AM COMMUNITY ASSISTANT Gender Identity Not on file Sexual Orientation [...] 03/01, 10/07/2022, Additional history exists Covid-19 Vaccine (2023-2 5 season) 2024 11/25/2020, 11/01/2020 Lipid Panel [...] history exists Medical Devices Implanted Type Area Circulation Manager Device Identifier Shelf Expiration Date Model [...] 61 to 70 cm pressure-regulating balloon. [facility] Sandra Vascu-Guard 8x.8cm Peripheral Patch Vascular Bovine Pericardium [id number] - [id number] Implanted:Qty: 1 on 10/30/2022 by Aniceto Foley MD at [facility] Right: Carotid [facility] Asndra [id number] 07/09/2023 [id number] / / [id number] [employer] Sandra Ams 800 Kit Accessory Sterile Disposable Latex Free Urinary [id number] - [id number] Implanted:Qty: 1 on 11/09/2024 by Kami Meneses MD at [facility] N/A: Urethra [employer] Sandra [id number] 03/09/2029 [id number] / / [id number] [employer] Sandra Cuff Urethral Ams 800 Inhibizone 3.5cm [id number] - [id number] Implanted:Qty: 1 on 11/09/2024 by Kami Meneses MD at [facility] N/A: Urethra [employer] Sandra [id number] 02/22/2026 [id number] / / [id number] [employer] Sandra Ams 800 Pressure Balloon Sphincter 61-70cu Cm Implant Urological [id number] - [id number] Implanted:Qty: 1 on 11/09/2024 by Kami Meneses MD at [facility] N/A: Abdomen [employer] Sandra [id number] 03/20/2029 [id number] / / [id number] [employer] Sandra Ams 800 Control Pump Sphincter Implant Urological Inhibizone [id number] - [id number] Implanted:Qty: 1 on 11/09/2024 by Kami Meneses MD at [facility] N/A: Scrotum [employer] Sandra [id number] 02/15/2026 [id number] / / [id number] Procedures Procedure Name Priority Date/Time Associated Diagnosis [...] DEVICE Routine 11/09/2024 9 :20 AM CDT IA AN PROCEDURE PLACEHOLDER Routine 11/09/2024 7:54 AM CDT IA AN ELECTIVE ENDOTRACHEAL AIRWAY Routine 11/09/2024 7:54 AM CDT ARTIFICIAL URINARY SPHINCTER 11/09/2024 7:32 AM CDT Stress incontinence CYSTOSCOPY 11/09/2024 7:32 AM CDT Stress incontinence POCT GLUCOSE DEVICE Routine 11/09/2024 6 :43 AM CDT URINALYSIS, MICROSCOPIC ONLY Routine 10/26/2024 1:43 PM COMMUNITY ASSISTANT Stress incontinence URINALYSIS AND REFLEX TO MICROSCOPIC AND CULTURE Routine 10/26/2024 1:43 PM COMMUNITY ASSISTANT Stress incontinence LIPID PANEL Routine 03/22/2024 10:23 AM CDT Coronary artery disease involving otoe-[place]ouria coronary artery of otoe-[place]ou[place] heart without angina pectoris CTA ABDOMINAL AORTA AND BILATERAL ILIOFEMORAL RUNOFF Schedule Routine, Read Routine (OP Routine) 12/15/2023 1:56 PM CDT PVD (peripheral vascular disease) HEMOGLOBIN A1C Routine 09/22/2023 12:19 PM COMMUNITY ASSISTANT Prostate cancer (HCC) from Last 3 Months or Most Recently Relevant to Health Maintenance Results * POCT glucose (11/12/2024 11:38 AM CDT) Pathologist [facility] [place] Glucose, POC 151 70 - 199 mg/dL Comment: For Glucose values <35 mg/dl when Hematocrit is >60 mg/dl,the test may not accurately detect significant hypoglycemia,and testing in the Laboratory should be considered if clinically indicated. Blood 11/12/2024 11:3 8 AM CDT 11/12/2024 11:38 AM CDT Kami Gleason MD LAB POCT ORDERABLES - DEVICE F inal Result [facility] [address] [place] [address] * (ABNORMAL) eGFR (11/12/2024 8:15 AM CDT) Pathologist [facility] [place] eGFR 59(L) >=60 mL/min/1. 73 m2 Comment: [...] NP LAB BLOOD ORDERABLES Fi nal Result [facility] [address] [place] [address] * (ABNORMAL) Basic metabolic panel (11/12/2024 8:15 AM CDT) Sodium 138 135 - 145 mmol/L Potassium, pl 4.2 3.3 - 4.9 mmol/L [facility] Chloride 106 97 - 110 mmol/L [facility] CO2 21(L) 22 - 32 mmol/L [facility] Anion gap 11 2 - 15 mmol/L [facility] BUN 28(H) 6 - 25 mg/dL [facility] Creatinine 1.26 0.80 - 1.30 mg/dL [facility] Glucose 136 70 - 199 mg/dL [facility] Comment: Interpretive Data Fasting glucose [...] 2022. Calcium 9.2 8.5 - 10.3 mg/dL [facility] Blood 11/12/2024 8:15 AM CDT 11/12/2024 9:17 AM CDT Kalina Ramirez Cliff ELECTRICAL PRODUCTS ENGINEER LAB BLOOD ORDERABLES Fi nal Result Performing Organization Address [facility] Co de Phone Number [facility] [address] [facility] [email or web address] [address] * POCT glucose (11/12/2024 5:49 AM CDT) [...] DEVICE F inal Result Performing Organization Address [facility] de Phone Number [facility] [address] [facility] [email or web address] [address] * (ABNORMAL) POCT glucose (11/11/2024 8:22 PM CDT) Glucose, POC 214(H) 70 - 199 mg/dL Comment: For Glucose values <35 mg/dl when Hematocrit is >60 mg/dl,the test may not accurately detect significant hypoglycemia,and testing in the Laboratory should be considered if clinically indicated. Blood 11/11/2024 8:22 PM CDT 11/11/2024 8:22 PM CDT aKmi Gleason MD LAB POCT ORDERABLES - DEVICE F inal Result Performing Organization Address City/[facility] Co de Phone Number [facility] [address] Department [place] [address] * POCT glucose (11/11/2024 5:14 PM CDT) Glucose, POC 127 70 - 199 mg/dL Comment: For Glucose values <35 mg/dl when Hematocrit is >60 mg/dl,the test may not accurately detect significant hypoglycemia,and testing in the Laboratory should be considered if clinically indicated. Blood 11/11/2024 5:14 PM CDT 11/11/2024 5:14 PM CDT [facility] MD LAB POCT ORDERABLES - DEVICE F inal Result Performing Organization Address [facility] Co de Phone Number [facility] [address] [facility] [email or web address] [address] * POCT glucose (11/11/2024 11:29 AM CDT) Pathologist [facility] [place] Glucose, POC 144 70 - 199 mg/dL Comment: For Glucose values <35 mg/dl when Hematocrit is >60 mg/dl,the test may not accurately detect significant hypoglycemia,and testing in the Laboratory should be considered if clinically indicated. Blood 11/11/2024 11:2 9 AM CDT 11/11/2024 11:29 AM CDT [facility] MD LAB POCT ORDERABLES - DEVICE F inal Result Performing Organization Address [facility] Co de Phone Number [facility] [address] [facility] [place] [address] * (ABNORMAL) eGFR (11/11/2024 7:48 AM CDT) Pathologist [facility] [place] eGFR 48(L) >=60 mL/min/1. 73 m2 Comment: [...] MD LAB BLOOD ORDERABLES Final Res ult [facility] [address] Department [place] [address] * Differential, auto (11/11/2024 7:48 AM CDT) Neutrophil abs 5.4 1.5 - 6.5 K/cumm Imm gran abs 0.0 0.0 - 0.1 K/cumm [facility] Lymphocyte abs 1.8 0.8 - 3.3 K/cumm [facility] Monocyte abs 0.8 0.2 - 0.8 K/cumm [facility] Eosinophil abs 0.2 0.0 - 0.5 K/cumm [facility] Basophil abs 0.0 0.0 - 0.1 K/cumm [facility] Neutrophil pct 65.8 % [facility] Comment: Interpretive Data Percent cell count reference ranges are not reported, since discordance with absolute values may lead to misinterpretation of CBC data. Current Interpretive Data was last revised on 2017. Imm gran pct 0.5 % [facility] Comment: Interpretive Data Percent cell count reference ranges are not reported, since discordance with absolute values may lead to misinterpretation of CBC data. Current Interpretive Data was last revised on 2017. Lymphocyte pct 21.7 % [facility] Comment: Interpretive Data Percent cell count reference ranges are not reported, since discordance with absolute values may lead to misinterpretation of CBC data. Current Interpretive Data was last revised on 2017. Monocyte pct 10.0 % [facility] Comment: Interpretive Data Percent cell count reference ranges are not reported, since discordance with absolute values may lead to misinterpretation of CBC data. Current Interpretive Data was last revised on 2017. Eosinophil pct 1.8 % [facility] Comment: Interpretive Data Percent cell count reference ranges are not reported, since discordance with absolute values may lead to misinterpretation of CBC data. Current Interpretive Data was last revised on 2017. Basophil pct 0.2 % [facility] Comment: Interpretive Data Percent cell count reference ranges are not reported, since discordance with absolute values may lead to misinterpretation of CBC data. Current Interpretive Data was last revised on 2017. Blood 11/11/2024 7:48 AM CDT 11/11/2024 8:16 AM CDT us Kalina Coronado NP LAB BLOOD ORDERABLES nal Result [facility] [address] Department [place] [address] * (ABNORMAL) CBC with auto differential (11/11/2024 7:48 AM CDT) WBC 8.2 3.8 - 9.9 K/cumm Hgb 11.1(L) 13.0 - 17.5 g/dL [facility] Hct 34.8(L) 38.9 - 50.3 % [facility] Plt 175 150 - 400 K/cumm [facility] MPV 11.0 9.1 - 12.3 fL [facility] RBC 3.63(L) 4.30 - 5.80 M/cumm [facility] MCV 95.9 81.3 - 96.4 fL [facility] MCH 30.6 27.1 - 33.3 pg [facility] MCHC 31.9(L) 32.3 - 35.7 g/dL [facility] RDW CV 14.2 11.1 - 14.9 % [facility] RDW SD 50.2(H) 35.7 - 48.1 fL [facility] NRBC abs 0.00 0.00 - 0.01 K/cumm [facility] Blood 11/11/2024 7:48 AM CDT 11/11/2024 8:16 AM CDT us Kalina Coronado NP LAB BLOOD ORDERABLES Fi nal Result Performing Organization Address [facility]/ZIP Co de Phone Number [facility] [address] Department of [email or web address] [place], [place] [id number] * Gentamicin level random (11/11/2024 7:48 AM CDT) Pathologist [facility] Gentamicin random 9.8 mcg/mL Comment: Interpretive Data No reference ranges have been established for random drug levels. Current Interpretive Data was last revised on 2020. Blood 11/11/2024 7:48 AM CDT 11/11/2024 8:16 AM CDT us Kami Gleason MD LAB BLOOD ORDERABLES Final Res ult Performing Organization Address [facility] Co de Phone Number [facility] [address] Department [email or web address] [place] [address] * (ABNORMAL) Basic metabolic panel (11/11/2024 7:48 AM CDT) Pathologist [facility] Sodium 134(L) 135 - 145 mmol/L Potassium, pl 4.0 3.3 - 4.9 mmol/L [facility] Chloride 101 97 - 110 mmol/L [facility] CO2 24 22 - 32 mmol/L [facility] Anion gap 9 2 - 15 mmol/L [facility] BUN 35(H) 6 - 25 mg/dL [facility] Creatinine 1.50(H) 0.80 - 1.30 mg/dL [facility] Glucose 136 70 - 199 mg/dL [facility] Comment: Interpretive Data Fasting glucose [...] Calcium 9.4 8.5 - 10.3 mg/dL [facility] Blood 11/11/2024 7:48 AM CDT 11/11/2024 8:16 AM CDT Kami Gleason MD LAB BLOOD ORDERABLES Final Res ult Performing Organization Address City/[facility]/ZIP Co de Phone Number [facility] [address] [place] [address] * POCT glucose (11/11/2024 6:41 AM CDT) Glucose, POC 155 70 - 199 mg/dL Comment: For Glucose values <35 mg/dl when Hematocrit is >60 mg/dl,the test may not accurately detect significant hypoglycemia,and testing in the Laboratory should be considered if clinically indicated. Blood 11/11/2024 6:41 AM CDT 11/11/2024 6:41 AM CDT Kami Gleason MD LAB POCT ORDERABLES - DEVICE F inal Result [facility] [address] [employer] [place], [place] [id number] * POCT glucose (11/10/2024 8:11 PM CDT) Glucose, POC 179 70 - 199 mg/dL Comment: For Glucose values <35 mg/dl when Hematocrit is >60 mg/dl,the test may not accurately detect significant hypoglycemia,and testing in the Laboratory should be considered if clinically indicated. Blood 11/10/2024 8:11 PM CDT 11/10/2024 8:11 PM CDT Result [facility] LAB POCT ORDERABLES - DEVICE F inal Result Performing Organization Address [facility] Co de Phone Number [facility] [address] [facility] [email or web address] [address] * POCT glucose (11/10/2024 4:46 PM CDT) Glucose, POC 134 70 - 199 mg/dL Comment: For Glucose values <35 mg/dl when Hematocrit is >60 mg/dl,the test may not accurately detect significant hypoglycemia,and testing in the Laboratory should be considered if clinically indicated. Blood 11/10/2024 4:46 PM CDT 11/10/2024 4:46 PM CDT [facility] LAB POCT ORDERABLES - DEVICE F inal Result Performing Organization Address [facility] de Phone Number [facility] [address] [facility] [email or web address] [address] * POCT glucose (11/10/2024 12:00 PM CDT) Glucose, POC 98 70 - 199 mg/dL Comment: For Glucose values <35 mg/dl when Hematocrit is >60 mg/dl,the test may not accurately detect significant hypoglycemia,and testing in the Laboratory should be considered if clinically indicated. Blood 11/10/2024 12:0 0 PM CDT 11/10/2024 12:00 PM CDT Result [facility] LAB POCT ORDERABLES - DEVICE F inal Result Performing Organization Address [facility] Co de Phone Number [facility] [address] [facility] [email or web address] [address] * POCT glucose (11/10/2024 7:38 AM CDT) Glucose, POC 112 70 - 199 mg/dL Comment: For Glucose values <35 mg/dl when Hematocrit is >60 mg/dl,the test may not accurately detect significant hypoglycemia,and testing in the Laboratory should be considered if clinically indicated. Blood 11/10/2024 7:38 AM CDT 11/10/2024 7:38 AM CDT [facility] LAB POCT ORDERABLES - DEVICE F inal Result Performing Organization Address [facility] Co de Phone Number [facility] [address] [facility] [email or web address] [place], [place] [id number] * (ABNORMAL) POCT glucose (11/09/2024 8:32 PM CDT) Glucose, POC 222(H) 70 - 199 mg/dL Comment: For Glucose values <35 mg/dl when Hematocrit is >60 mg/dl,the test may not accurately detect significant hypoglycemia,and testing in the Laboratory should be considered if clinically indicated. Blood 11/09/2024 8:32 PM CDT 11/09/2024 8:32 PM CDT [facility] LAB POCT ORDERABLES - DEVICE F inal Result Performing Organization Address [facility] Co de Phone Number [facility] [address] [facility] [email or web address] [address] * POCT glucose (11/09/2024 5:35 PM CDT) Glucose, POC 171 70 - 199 mg/dL Comment: For Glucose values <35 mg/dl when Hematocrit is >60 mg/dl,the test may not accurately detect significant hypoglycemia,and testing in the Laboratory should be considered if clinically indicated. Blood 11/09/2024 5:35 PM CDT 11/09/2024 5:35 PM CDT [facility] MD LAB POCT ORDERABLES - DEVICE F inal Result Performing Organization Address [facility] Co de Phone Number [facility] [address] [email or web address] [address] * (ABNORMAL) eGFR (11/09/2024 4:58 PM CDT) [...] ORDERABLES Final Res ult Performing Organization Address [facility]/ZIP Co de Phone Number [facility] [address] Department [email or web address] [place], [place] [id number] * (ABNORMAL) Basic metabolic panel (11/09/2024 4:58 PM CDT) Sodium 134(L) 135 - 145 mmol/L Potassium, pl 4.6 3.3 - 4.9 mmol/L [facility] Chloride 101 97 - 110 mmol/L [facility] CO2 21(L) 22 - 32 mmol/L [facility] Anion gap 12 2 - 15 mmol/L [facility] BUN 29(H) 6 - 25 mg/dL [facility] Creatinine 1.39(H) 0.80 - 1.30 mg/dL [facility] Glucose 203(H) 70 - 199 mg/dL [facility] Comment: Interpretive Data Fasting glucose [...] 2022. Calcium 10.0 8.5 - 10.3 mg/dL [facility] Blood 11/09/2024 4:58 PM CDT 11/09/2024 5:50 PM CDT Kami Gleason MD LAB BLOOD ORDERABLES Final Res ult Performing Organization Address City/[facility]/ZIP Co de Phone Number [facility] [address] [place] [address] * POCT glucose (11/09/2024 10:08 AM CDT) [facility] Signature Glucose, POC 167 70 - 199 mg/dL Comment: For Glucose values <35 mg/dl when Hematocrit is >60 mg/dl,the test may not accurately detect significant hypoglycemia,and testing in the Laboratory should be considered if clinically indicated. Blood 11/09/2024 10:0 8 AM CDT 11/09/2024 10:08 AM CDT Kami Gleason MD LAB POCT ORDERABLES - DEVICE F inal Result Performing Organization Address City/[facility]/ZIP Co de Phone Number [facility] [address] Department [employer] [place] [address] * POCT glucose (11/09/2024 9:20 AM CDT) Glucose, POC 163 70 - 199 mg/dL Comment: For Glucose values <35 mg/dl when Hematocrit is >60 mg/dl,the test may not accurately detect significant hypoglycemia,and testing in the Laboratory should be considered if clinically indicated. Blood 11/09/2024 9:20 AM CDT 11/09/2024 9:20 AM CDT us Kami Gleason MD LAB POCT ORDERABLES - DEVICE F inal Result [facility] [address] [place] [address] * IA AN ELECTIVE ENDOTRACHEAL AIRWAY, IA AN PROCEDURE PLACEHOLDER (11/09/2024 7:54 AM CDT) Narrative Jorge Sun CRNA - 11/09/2024 7:54 AM CDT Jorge Sun CRNA 11/09/2024 7:55 AM Airway Patient location: OR Urgency: elective Indications for airway management: anesthesia and airway protection Difficult airway: no Staff: Supervising provider: Lai Gregg DO Placed by: PROFESSOR OF CHEMISTRY: Jorge Sun CRNA Emergent airway documentation: Risks [...] with: silk tape Number of attempts: 1 Lai Gregg DO ANESTHESIA ORDERAB LES Final [...] POCT ORDERABLES - DEVICE F inal Result [facility] [address] [place] [address] * (ABNORMAL) Urinalysis reflex to microscopic and culture Urine, bladder (10/26/2024 1:43 PM COMMUNITY ASSISTANT) Color, ur Straw Yellow Clarity, ur Clear Clear [facility] Specific gravity, ur 1.010 1.003 - 1.030 [facility] pH, urine 6.5 [facility] Comment: Interpretive Data U rine pH is affected by diet, medications, systemic acid-base disturbances, and renal tubular function. pH may affect urinary stone formation. For example, urine pH below 6.0 may help reduce the tendency for calcium phosphate stones and pH greater than 6.0 may reduce the tendency for uric acid stone formation. Source: [facility] [email or web address] Current Interpretive Data was last revised on 2017 Protein, ur ql Trace Negative [facility] Glucose, ur ql Negative Negative [facility] Ketones, ur Negative Negative [facility] Bilirubin, ur Negative Negative [facility] Blood, ur 1+(A) Negative [facility] Urobilinogen, ur <2.0 <2.0 mg/dL [facility] Nitrite, ur Negative Negative [facility] Leukocyte esterase, ur Negative Negative [facility] UA reflex comment Reflex to microscopic UA will be performed. [facility] Urine, bladder 10/26/2024 1: 43 PM COMMUNITY ASSISTANT 10/26/2024 2:03 PM COMMUNITY ASSISTANT Kami Gleason MD LAB MICROBIOLOGY - GENERAL ORD ERABLES Final Result Performing Organization Address [facility] Co de Phone Number [facility] [address] [place] [address] * Urinalysis, microscopic only (10/26/2024 1:43 PM COMMUNITY ASSISTANT) WBC, ur 0-5 0 - 5 /HPF RBC, ur 0-2 0 - 2 /HPF [facility] Culture Reflex Comment Reflex conditions for urine culture (WBC >10) not met. [facility] Urine, bladder 10/26/2024 1: 43 PM COMMUNITY ASSISTANT 10/26/2024 2:03 PM COMMUNITY ASSISTANT Kami Gleason MD LAB URINE ORDERABLES Final Res ult Performing Organization Address [facility] Co de Phone Number [facility] [address] [place] [address] * (ABNORMAL) Lipid panel (03/22/2024 10:23 AM [...] on 2018. Triglycerides 115 <=149 mg/dL [facility] Comment: Interpretive Data Ages < or [...] revised on 2018. HDL 37(L) >=40 mg/dL [facility] Comment: Interpretive Data Ages [...] on 2018. LDL, calculated 67 <=129 mg/dL [facility] Comment: Interpretive Data Ages [...] revised on 2018. Non-HDL Cholesterol 90 mg/dL [facility] Comment: Interpretive Data Ages [...] last revised on 2018. Chol/HDL ratio 3 [facility] Blood 03/22/2024 10:2 3 AM CDT 03/22/2024 10:52 AM CDT us Antonette Rater [employer]LECT[employer]ICAL PRODUCTS ENGINEER LAB BLOOD ORDERABLES Final Resul t [facility] [place] [address] * CTA Abdominal Aorta And Bilateral Iliofemoral [...] * (ABNORMAL) Hemoglobin A1c (09/22/2023 12:19 PM COMMUNITY ASSISTANT) Hgb A1C 6.0(H) 4.0 - 5.6 % [facility] Estimated Average Glucose 126 mg/dL [facility] Comment: The ADA recommends reporting an estimated Average Glucose (eAG) with all Hemoglobin A1c results using the equation derived from a study of 507 normal and diabetic adults. Minority populations were underrepresented and children were not included. (Diabetes Care 2020; 43(S1): S66-S76). The eAG is not equivalent to a fasting glucose. Blood 09/22/2023 12:1 9 PM COMMUNITY ASSISTANT 09/22/2023 12:45 PM COMMUNITY ASSISTANT Chicho Clayton MD LAB BLOOD ORDERABLES Final Resul t [facility] [place] [address] from Last 3 Months or Most Recently Relevant to Health Maintenance Insurance [facility] MEDICARE MEDICARE [facility] MEDICARE [facility] MEDICARE [facility] Advance Directives For more information, please contact: [phone] * Full Code (Latest Code Status on File) Date Activated Date Inactivated Comments 11/09/2024 2:36 PM 11/12/2024 6:36 PM * Full Code Date Activated Date Inactivated Comments 10/30/2022 5:29 PM 10/31/2022 7:15 PM * Full Code Date Activated Date Inactivated Comments 08/16/2019 9:46 AM 08/16/2019 5:30 PM Care Teams Hot Repairman Relationship Specialty Start Date End Date Fuentes Orellana MD PCP - General 11/28/16 Itz Iyer MD [address] [place] [address] Consulting Physician Urology 05/31/18 Shawnee Mckinney MD [address] [place] [address] Referring Physician Urology 06/03/18 Chicho Clayton MD [address] [facility] [address] [place] [address] Medical Oncologist/Hematologis t Medical Oncology 06/07/18 Maria Guadalupe Palacios, RN Registered Nurse 06/10/18 Lupillo Davenport MD Referring Physician Radiation Oncology 06/16/18 Danis Meza NP [address] [facility] [address] [place] [address] Nurse Practitioner Urology 10/06/22 Antonette Owens NP [address] [facility] [address] [place] [address] Nurse Practitioner Cardiovascular Disease 10/06/22 Aniceto Foley MD [address] [place] [address] Surgeon Vascular Surgery 10/31/22
--- OUTSIDE RECORDS SUMMARY | 2024-12-27 11:23 | XMS_ITS | Clinical Summary ---
Author Organization [facility] Address [address] [place] [address] Phone Care Team Providers Care Hook Up Name Role Phone Fuentes Orellana MD Primary Care Provider [phone] Allergies No known active allergies Medications pantoprazole [...] series) 2024 Medical Devices Implanted Type Area Rotary Machine Operator Device Identifier Shelf Expiration Date Model / Serial / Lot Ams 800 Urinary Control System(Penile Implant) Description:MRI conditional for 3T or less -danisah 01/04/19 Insurance MEDICARE PART A AND B [facility] [id number] Care Teams Hook Up Relationship Specialty Start Date End Date Fuentes Orellana MD [address] [address] PCP - General Family Practice 01/04/19
--- OUTSIDE RECORDS SUMMARY | 2024-12-27 11:23 | XMS_ITS | Encounter Summary ---
Author Organization [facility] Address [address] [facility] [place] [address] Phone Care Team Providers Care Employment Coach Name Role Phone Fuentes Orellana MD Primary Care Provider Brent Dickinson DO Unavailable [phone] Faviola Jiménez CINEMA OPERATOR, JEWELRY RACKER Unavailable Shawnee Mckinney MD Unavailable Chicho Clayton MD Unavailable Lai Lambert CINEMA OPERATOR, JEWELRY RACKER Unavailable [phone] Kami Meneses MD Unavailable [phone] Anette Bond MD Unavailable [phone] Kay Gordon APRN, JEWELRY RACKER Unavailable Kami Meneses MD Unavailable [phone] Reason for Visit * Reason Comments Medication Refill Encounter Details Date Type Department Care Team (Late st Contact Info) Description 10/15/2021 Refill [facility] - [place] [address] [place] [id number] Ingrid Mccloud Ashley, PAC [address] [place] [address] Medication Refill Social History Tobacco Use Types [...] 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 L VIAL GRINDER documented in this encounter Plan of Treatment Upcoming Encounters Date Type Department Care Team (Late st Contact Info) Description 01/10/2025 1:30 PM CDT Office Visit [facility] [address] [place] [address] Kami Meneses MD [address] [address] documented as of this encounter Visit Diagnoses Not on filedocumented in this encounter Care Teams Employment Coach Relationship Specialty Start Date End Date Fuentes Orellana MD [address] [place] [address] PCP - General Family Medicine 07/06/15 Brent Dickinson DO [address] [place] [address] Gastroenterology 06/27/16 Faviola Jiménez APRN, JEWELRY RACKER [address] [place] [address] Nurse Practitioner Advanced Practice Nurse 07/22/16 Shawnee Mckinney MD [address] [facility] [address] [place] [address] Urologist Urology 06/07/19 Chicho Clayton MD [address] [facility] [address] [place] [address] Oncology 06/13/19 Lai Lambert APRN, JEWELRY RACKER [address] [place] [address] Nurse Practitioner Advanced Practice Nurse 02/10/23 Kami Meneses MD #[address] [address] Consulting Physician Urology 06/16/23 Anette Bond MD [address] [place] [address] Consulting Physician Gastroenterology 12/25/22 Kay Gordon APRN, JEWELRY RACKER [address] [place] [address] Nurse Practitioner Advanced Practice Nurse 06/16/24 Kami Meneses MD [address] [address] Consulting Physician Urology 08/19/24 documented as of this encounter
== END 2024-12-27 10:04 | disposition home or self-care (01) ==
LOC: ANHSURGERY 10:14
PROVIDERS: Anesthesiology; PCP Family Medicine; Visit Provider Surgery
DX: N18.1 Chronic kidney disease, stage 1 (principal); K42.9 Umbilical hernia without obstruction or gangrene; Z01.818 Encounter for other preprocedural examination
CPT/HCPCS: 36415; 85610; 85730; 86850; 86900; 86901

== ENCOUNTER 2025-01-03 00:30 | Day surgery (SDC) | payer MEDICARE, SELFPAY ==
[2024-12-16 13:17] VITALS: BMI 27.2
--- NOTE | 2024-12-16 13:36 | PC.NURSE ---
Report to the Outpatient Waiting Room, entrance under the green pavilion located off [facility], at time __0630am on date __01/03/25 . Planned Procedure Time: _0830am .? Time changes happen often and if your time is changed the preop area will call you the afternoon before. - You and your visitor will be asked to self-screen and do not enter if you have any COVID symptoms. Please call surgeon if you need to reschedule. - A mask is optional within the hospital at this time. Patients may have clear liquids (water, carbonated beverages, clear teas, apple juice) until 3 hours prior to surgery with a maximum of 20 ounces. - No food from midnight until time of surgery and no smoking, or chewing tobacco (or any form of nicotine). No chewing gum, candy or mints. (0530am) Take only the following medications with a SIP of water on the morning of surgery: ___Amlodipine, Metoprolol, and Alprazolam if needed DO NOT STOP ANY OF YOUR OTHER PRESCRIPTION MEDICATIONS PRIOR TO SURGERY EXCEPT THE FOLLOWING Hold all vitamins and supplements for 3 days per anesthesiologist.Date to take last dose___12/30/24 Medications to discontinue per physician ____HOLD BRILLINTA for 5 days prior per Wikiera/Cardiology Date to take last dose___12/28/24 Please no make-up, nail lithuanian, hairspray, perfume, deodorant, or body powder the day of surgery.? No jewelry (including any body piercings) or valuables the day of surgery, leave them at home.? Please take a shower or bath the night before, or the morning of, surgery with an antibacterial soap.? Wear comfortable, loose fitting clothing.? - Jewelry must be removed prior to entering the operating room.? Rings and piercings that are not removed may be cut off. - The hospital will not accept responsibility for valuables.? - Please leave all valuables, including medications, at home the day of surgery. If you are going home after surgery, a licensed pick up driver must drive you home.? - NO public transportation without another adult if you receive anesthesia. - We recommend that an adult stay with you for 24 hours following discharge. - We also recommend that you do not drive, make important decision, drink alcoholic beverages, or take any drugs that were not prescribed by your health care provider for at least 24 hours after your discharge time. Follow any additional instructions given to you from your surgeon. Telephone instructions given to ___Patient and asked if any additional questions and then verbalized understanding. Patient advised to call surgeon office or pre surgery nurse liaison [phone] if any additional questions.
[2025-01-03] VITALS (13 sets, daily range): BP systolic 132–149; BP diastolic 42–89; PULSE 62–76; RESP 13–16; TEMP 36.1–36.5; O2SAT 76–100
--- OUTSIDE RECORDS SUMMARY | 2025-01-03 00:33 | XMS_ITS | Clinical Summary ---
Author Organization [facility] Address [address] [place] [address] Care Team Providers Care Barrel Lathe Operator Name Role Phone Fuentes Orellana MD Primary Care Provider [phone] Allergies No known active allergies Medications amLODIPine [...] age to complete this topic Insurance MEDICARE [facility] Care Teams Barrel Lathe Operator Relationship Specialty Start Date End Date Fuentes Orellana MD [address] [place] [id number] PCP - General FAMILY PRACTICE 11/29/22
--- OUTSIDE RECORDS SUMMARY | 2025-01-03 00:33 | XMS_ITS | Encounter Summary ---
Author Organization [facility] Address [address] [place] [address] Phone Care Team Providers Care Magnetic Locater Name Role Phone Fuentes Orellana MD Primary Care Provider Brent Dickinson DO Unavailable [phone] Faviola Jiménez PHILOSOPHY AND RELIGION INSTRUCTOR, PHYSICIAN NEONATOLOGY Unavailable Shawnee Mckinney MD Unavailable Chicho Clayton MD Unavailable Lai Lambert PHILOSOPHY AND RELIGION INSTRUCTOR, PHYSICIAN NEONATOLOGY Unavailable Kami Meneses MD Unavailable [phone] Anette Bond MD Unavailable [phone] Kay Gordon APRN, PHYSICIAN NEONATOLOGY Unavailable Kami Meneses MD Unavailable [phone] Encounter Details Date Type Department Care Team (Late st Contact Info) Description 12/16/2024 Telephone [facility] [address] [place] [address] Kami Meneses MD [address], [address] [address] Social History Tobacco Use Types Packs/Day Years [...] Job 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 Chicho Clayton at [place] for prostate. * Telephone Encounter - Kami Meneses MD - 12/16/2024 11:45 AM CDT Can you ask the patient who follows him for his prostate cancer? documented in this encounter Plan of Treatment Upcoming Encounters Date Type Department Care Team (Late st Contact Info) Description 01/10/2025 1:30 PM CDT Office Visit [facility] [address] [place] [address] Kami Meneses MD [address] [address] documented as of this encounter Visit Diagnoses Not on filedocumented in this encounter Care Teams Magnetic Locater Relationship Specialty Start Date End Date Fuentes Orellana MD [address] [address] PCP - General Family Medicine 07/06/15 Brent Dickinson DO [address] [facility] [place] [address] Gastroenterology 06/27/16 Faviola Jiménez APRN, PHYSICIAN NEONATOLOGY [address] [facility] [place] [address] Nurse Practitioner Advanced Practice Nurse 07/22/16 Shawnee Mckinney MD [address] [facility] [address] [place] [address] Urologist Urology 06/07/19 Chicho Clayton MD [address] [facility] [address] [place] [address] Oncology 06/13/19 Lai Lambert APRN, PHYSICIAN NEONATOLOGY [address] [place] [address] Nurse Practitioner Advanced Practice Nurse 02/10/23 Kami Meneses MD #[address] [address] Consulting Physician Urology 06/16/23 Anette Bond MD [address] [place] [address] Consulting Physician Gastroenterology 12/25/22 Kay Gordon APRN, PHYSICIAN NEONATOLOGY [address] [place] [address] Nurse Practitioner Advanced Practice Nurse 06/16/24 Kami Meneses MD #[address] [address] Consulting Physician Urology 08/19/24 documented as of this encounter
--- OUTSIDE RECORDS SUMMARY | 2025-01-03 00:33 | XMS_ITS | CONTINUITY OF CARE DOCUMENT ---
Author Name malik gan Address Unknown Organization [facility] Address [address] [place] [address] [address] [place] [address] Phone [phone] Care Team Providers Care Admissions Gate Attendant Name Role Phone Dinh BARRERA, [facility] Unavailable
--- OUTSIDE RECORDS SUMMARY | 2025-01-03 00:33 | XMS_ITS | Clinical Summary ---
Author Organization Unknown Care Team Providers Care Cloth Reeler Name Role Phone PRABHJOT ESCOBAR, KIRK Unavailable Mikey MARTIN RN, ABI Unavailable Unavailable LOIS PHYSIOTHERAPIST'S ASSISTANT, RICARDA Unavailable Unavailable MARCE PT, YANET Unavailable Unavailable VICTOR MANUEL UNIFIED COMMUNICATIONS ARCHITECT, DAPHNE Unavailable Unavailpatricia PAGE OT, TAMIE Unavailable Unavailable Payers Payer Name Policy Type Policy Number Effective Date Expira tion Date MEDICARE.[place] [id number] Problems Condition Name Condition Details Condition Category [...] 08-31 00:00: 00 ATHSCL HEART DISEASE OF [place] CORONARY ARTERY W/O ANG PCTRS Active 08-31 [...] SPECIFIED FUNCTIONAL IMPLANTS Active 08-31 00:00: 00 LONG-TERM (CURRENT) USE OF ASPIRIN Active 08-31 00:00: [...] 325 mg tablet 11-09 00:00: 00 Yes [id number] PAIN 1 tablet DAILY 1 tablet DAILY (route: oral) Med Classific ation: Analgesic , Anti-infl ammatory or Antipyret ic sulfamethox azole 800 mg-trimetho prim 160 mg tablet 11-12 00:00: 00 11-19 23:59 :00 No [id number] PROPHYLATIC 1 tablet 2 TIMES DAILY 1 tablet 2 TIMES DAILY (route: oral) Med Classific ation: Anti-Infe ctive Agents metoprolol tartrate 25 mg tablet 11-03 00:00: 00 Yes [id number] HIGH BLOOD PRESSURE 1 tablet 2 TIMES DAILY 1 tablet 2 TIMES DAILY (route: oral) Med Classific ation: Cardiovas cular Therapy Agents rosuvastati n 40 mg tablet 11-02 00:00: 00 Yes [id number] CHOLESTEROL 1 tablet DAILY 1 tablet DAILY (route: oral) Med Classific ation: Cardiovas cular Therapy Agents Brilinta 60 mg tablet 11-12 00:00: 00 Yes [id number] BLOOD THINNER 1 tablet 2 TIMES DAILY 1 tablet 2 TIMES DAILY (route: oral) Med Classific ation: Hematolog ical Agents acetaminoph en 500 mg tablet 11-12 00:00: 00 Yes [id number] NEEDED FOR PAIN 1-5/10 ON A 1-10 SCALE OR FEVER GREATER THAN 100.1 2 tablet EVERY 6 HOURS 2 tablet EVERY 6 HOURS (route: oral) Med Classific ation: Analgesic , Anti-infl ammatory or Antipyret ic alendronate 70 mg tablet 11-12 00:00: 00 Yes [id number] OSTEOARTHRI TIS 1 tablet WEEKLY 1 tablet WEEKLY (route: oral) Med Classific ation: Endocrine allopurinol 300 mg tablet 11-12 00:00: 00 Yes [id number] GOUT 1 tablet DAILY 1 tablet DAILY (route: oral) Med Classific ation: Gout and Hyperuric emia Therapy alprazolam 0.25 mg tablet 11-12 00:00: 00 Yes [id number] NEEDED FOR ANXIETY 1 tablet 3 TIMES DAILY 1 tablet 3 TIMES DAILY (route: oral) Med Classific ation: Central Nervous System Agents amlodipine 5 mg tablet 11-12 00:00: 00 Yes [id number] HIGH BLOOD PRESSURE 1 tablet DAILY 1 tablet DAILY (route: oral) Med Classific ation: Cardiovas cular Therapy Agents cephalexin 500 mg capsule 11-12 00:00: 00 11-18 23:59 :00 No [id number] PROPHYLATIC 1 capsule 2 TIMES DAILY 1 capsule 2 TIMES DAILY (route: oral) Med Classific ation: Anti-Infe ctive Agents chlorthalid one 25 mg tablet 11-12 00:00: 00 Yes [id number] HIGH BLOOD PRESSURE 1 tablet DAILY 1 tablet DAILY (route: oral) Med Classific ation: Cardiovas cular Therapy Agents Kerendia 10 mg tablet 11-12 00:00: 00 Yes [id number] KIDNEY DISEASE 1 tablet DAILY 1 tablet DAILY (route: oral) Med Classific ation: Cardiovas cular Therapy Agents pantoprazol e 40 mg tablet,ingrid yed release 11-12 00:00: 00 Yes [id number] GASTROESOPH AGEAL REFULX DISEASE 1 tablet DAILY 1 tablet DAILY (route: oral) Med Classific ation: Gastroint estinal Therapy Agents telmisartan 80 mg tablet 11-12 00:00: 00 Yes [id number] HIGH BLOOD PRESSURE 1 tablet DAILY 1 tablet DAILY (route: oral) Med Classific ation: Cardiovas cular Therapy Agents Tradjenta 5 mg tablet 11-12 00:00: 00 Yes [id number] DIABETES 1 tablet DAILY 1 tablet DAILY (route: oral) Med Classific ation: Endocrine nitroglycer in 0.3 mg sublingual tablet 11-12 00:00: 00 Yes [id number] NEEDED FOR CHEST PAIN 1 tablet EVERY 5 MINUTES TIMES 3 1 tablet EVERY 5 MINUTES TIMES 3 (route: sublingual ) Med Classific ation: Cardiovas cular Therapy Agents glimepiride 1 mg tablet 12-13 00:00: 00 Yes [id number] DIABETES 1 mg 2 TIMES DAILY 1 mg 2 TIMES DAILY (route: oral) Alternate Route: BY MOUTH. Med Classific ation: Endocrine Gvoke 1 mg/0.2 mL subcutaneou s solution 12-13 00:00: 00 Yes [id number] LOW BLOOD SUGAR Per instruc tions NEEDED Per instructio ns NEEDED (route: subcutaneo us) Alternate Route: SUBCUTANE OUS. Med Classific ation: Endocrine phenazopyri dine 200 mg tablet 12-21 00:00: 00 Yes [id number] URINARY PAIN 200 mg 3 TIMES DAILY 200 mg 3 TIMES DAILY (route: oral) Alternate Route: BY MOUTH. Med Classific ation: Genitouri nary Therapy Vital Signs Vital Name Observation Time Observation [...] RICK MD RN TO OBSERVE AND ASSESS, PHYSIOTHERAPIST'S ASSISTANT/OUTBOUND SALES ADVISOR TO OBSERVE FOR RISK FOR FALLS AND INSTRUCT IN FALL PREVENTION, HOME SAFETY, MEDICATION MANAGEMENT, INFECTION PREVENTION, AND NUTRITION MANAGEMENT. RN/PHYSIOTHERAPIST'S ASSISTANT/OUTBOUND SALES ADVISOR NURSE MAY PERFORM O2 SATURATION LEVEL ON ADMISSION, EVERY VISIT AND PRN FOR SHORTNESS OF BREATH FOR RN TO ASSESS/PHYSIOTHERAPIST'S ASSISTANT TO OBSERVE PATIENT, WITH NOTIFICATION TO THE PHYSICIAN IF SATURATION IS 90% IN THE ABSENCE OF MORE SPECIFIC PARAMETERS FROM THE PHYSICIAN. AGENCY MAY PERFORM A RESUMPTION OF CARE VISIT FOLLOWING ANY HOSPITAL ADMISSION. RN/PHYSIOTHERAPIST'S ASSISTANT/OUTBOUND SALES ADVISOR TO MONITOR CO-MORBID CONDITIONS LISTED ON THE PLAN OF CARE AND ANY NEW CONDITIONS THAT PRESENT THEMSELVES DURING THIS EPISODE TO IDENTIFY CHANGES AND INTERVENE TO MINIMIZE COMPLICATIONS. [code = RN TO OBSERVE, ASSESS, EVALUATE, AND DEVELOP AN INDIVIDUALIZED PLAN OF CARE. AGENCY MAY ACCEPT ORDERS FROM CONSULTING PHYSICIANS KIRK RICK MD RN TO OBSERVE AND ASSESS, PHYSIOTHERAPIST'S ASSISTANT/OUTBOUND SALES ADVISOR TO OBSERVE FOR RISK FOR FALLS AND INSTRUCT IN FALL PREVENTION, HOME SAFETY, MEDICATION MANAGEMENT, INFECTION PREVENTION, AND NUTRITION MANAGEMENT. RN/PHYSIOTHERAPIST'S ASSISTANT/OUTBOUND SALES ADVISOR NURSE MAY PERFORM O2 SATURATION LEVEL ON ADMISSION, EVERY VISIT AND PRN FOR SHORTNESS OF BREATH FOR RN TO ASSESS/PHYSIOTHERAPIST'S ASSISTANT TO OBSERVE PATIENT, WITH NOTIFICATION TO THE PHYSICIAN IF SATURATION IS 90% IN THE ABSENCE OF MORE SPECIFIC PARAMETERS FROM THE PHYSICIAN. AGENCY MAY PERFORM A RESUMPTION OF CARE VISIT FOLLOWING ANY HOSPITAL ADMISSION. RN/PHYSIOTHERAPIST'S ASSISTANT/OUTBOUND SALES ADVISOR TO MONITOR CO-MORBID CONDITIONS LISTED ON THE [...] OT EVALUATION] Future Scheduled Test MEDICATION MANAGEMENT; RN/PHYSIOTHERAPIST'S ASSISTANT/OUTBOUND SALES ADVISOR TO REVIEW MEDICATIONS FOR INTERACTIONS, EFFECTIVENESS OF DRUG THERAPY, AND SIGNS/SYMPTOMS OF ADVERSE REACTIONS. MAY INSTRUCT AND REINFORCE MEDICATION TEACHING RELATED TO THE USE OF MEDICATIONS, DOSAGE, FREQUENCY, PURPOSE, SIDE EFFECTS, AND TO REPORT COMPLICATIONS. [code = MEDICATION MANAGEMENT; RN/PHYSIOTHERAPIST'S ASSISTANT/OUTBOUND SALES ADVISOR TO REVIEW MEDICATIONS FOR INTERACTIONS, EFFECTIVENESS OF DRUG THERAPY, AND SIGNS/SYMPTOMS OF ADVERSE REACTIONS. MAY INSTRUCT AND REINFORCE MEDICATION TEACHING RELATED TO THE USE OF MEDICATIONS, DOSAGE, FREQUENCY, PURPOSE, SIDE EFFECTS, AND TO REPORT COMPLICATIONS.] Future Scheduled Test ANTICOAGUL ATION MANAGEMENT; RN TO ASSESS AND TEACH, PHYSIOTHERAPIST'S ASSISTANT/OUTBOUND SALES ADVISOR TO OBSERVE/TEACH/MONITOR EFFECTIVENESS OF ANTICOAGULATION THERAPY. RN/PHYSIOTHERAPIST'S ASSISTANT/OUTBOUND SALES ADVISOR TO INSTRUCT ON SIGNS AND SYMPTOMS OF BLEEDING/ADVERSE REACTIONS TO REPORT TO PHYSICIAN. RN/PHYSIOTHERAPIST'S ASSISTANT/OUTBOUND SALES ADVISOR TO PERFORM PT/INR VIA VENIPUNCTURE OR COAGUCHECK PRN PHYSICIAN ORDERSS RN/PHYSIOTHERAPIST'S ASSISTANT/OUTBOUND SALES ADVISOR TO FAX/CALL IN RESULTS TO PHYSICIAN TIMELY [code = ANTICOAGULATION MANAGEMENT; RN TO ASSESS AND TEACH, PHYSIOTHERAPIST'S ASSISTANT/OUTBOUND SALES ADVISOR TO OBSERVE/TEACH/MONITOR EFFECTIVENESS OF ANTICOAGULATION THERAPY. RN/PHYSIOTHERAPIST'S ASSISTANT/OUTBOUND SALES ADVISOR TO INSTRUCT ON SIGNS AND SYMPTOMS OF BLEEDING/ADVERSE REACTIONS TO REPORT TO PHYSICIAN. RN/PHYSIOTHERAPIST'S ASSISTANT/OUTBOUND SALES ADVISOR TO PERFORM PT/INR VIA VENIPUNCTURE OR COAGUCHECK PRN PHYSICIAN ORDERSS RN/PHYSIOTHERAPIST'S ASSISTANT/OUTBOUND SALES ADVISOR TO FAX/CALL IN RESULTS TO PHYSICIAN TIMELY ] Future Scheduled Test FALL REDUC TION MANAGEMENT; RN TO ASSESS AND OBSERVE, PHYSIOTHERAPIST'S ASSISTANT/OUTBOUND SALES ADVISOR TO OBSERVE FALL RISK FACTORS AND EDUCATE PATIENT/CAREGIVER ON STRATEGIES TO MINIMIZE THE RISK OF FALLING. [code = FALL REDUCTION MANAGEMENT; RN TO ASSESS AND OBSERVE, PHYSIOTHERAPIST'S ASSISTANT/OUTBOUND SALES ADVISOR TO OBSERVE FALL RISK FACTORS AND EDUCATE PATIENT/CAREGIVER ON STRATEGIES TO MINIMIZE THE RISK OF FALLING.] Future Scheduled Test GENITOURIN KEZIA MANAGEMENT; RN TO ASSESS AND TEACH, PHYSIOTHERAPIST'S ASSISTANT/OUTBOUND SALES ADVISOR TO OBSERVE AND TEACH RELATED TO ALTERED GENITOURINARY STATUS TO MINIMIZE COMPLICATIONS AND REDUCE HOSPITALIZATION. [code = GENITOURINARY MANAGEMENT; RN TO ASSESS AND TEACH, PHYSIOTHERAPIST'S ASSISTANT/OUTBOUND SALES ADVISOR TO OBSERVE AND TEACH RELATED TO ALTERED GENITOURINARY STATUS TO MINIMIZE COMPLICATIONS AND REDUCE HOSPITALIZATION.] Future Scheduled Test URINARY IN CONTINENCE MANAGEMENT; RN TO ASSESS AND TEACH, PHYSIOTHERAPIST'S ASSISTANT/LVNTO OBSERVE AND TEACH MANAGEMENT OF URINARY INCONTINENCE. TEACH/INSTRUCT ON PREVENTING INFECTION AND SKIN BREAKDOWN. RN/PHYSIOTHERAPIST'S ASSISTANT/OUTBOUND SALES ADVISOR MAY INSTRUCT IN BLADDER TRAINING PROGRAM INDICATED. [code = URINARY INCONTINENCE MANAGEMENT; RN TO ASSESS AND TEACH, PHYSIOTHERAPIST'S ASSISTANT/LVNTO OBSERVE AND TEACH MANAGEMENT OF URINARY INCONTINENCE. TEACH/INSTRUCT ON PREVENTING INFECTION AND SKIN BREAKDOWN. RN/PHYSIOTHERAPIST'S ASSISTANT/OUTBOUND SALES ADVISOR MAY INSTRUCT IN BLADDER TRAINING PROGRAM INDICATED.] Future Scheduled Test DIABETES M ANAGEMENT; RN TO ASSESS AND TEACH, OUTBOUND SALES ADVISOR/PHYSIOTHERAPIST'S ASSISTANT TO OBSERVE AND TEACH INSTRUCTIONS OF DIABETIC CARE TO INCLUDE: DIET DIABETIC SKIN CARE, SIGNS AND SYMPTOMS OF HYPO/HYPERGLYCEMIA, PROPER ADMINISTRATION OF DIABETIC MEDICATION. RN/OUTBOUND SALES ADVISOR/PHYSIOTHERAPIST'S ASSISTANT TO INSTRUCT ON DIABETIC FOOT CARE AND MONITOR FOR SKIN LESIONS ON LOWER EXTREMITIES. BLOOD GLUCOSE TESTING DAILY RN TO ASSESS AND TEACH, OUTBOUND SALES ADVISOR/PHYSIOTHERAPIST'S ASSISTANT TO OBSERVE AND TEACH PATIENT/CAREGIVER ABILITY TO PERFORM AND RECORD BLOOD GLUCOSE TESTING ORDERED AND TO REPORT ABNORMAL FINDINGS TO PHYSICIAN. RN/OUTBOUND SALES ADVISOR/PHYSIOTHERAPIST'S ASSISTANT MAY PERFORM BLOOD GLUCOSE TEST NEEDED. RN/OUTBOUND SALES ADVISOR/PHYSIOTHERAPIST'S ASSISTANT TO REPORT TO PHYSICIAN BLOOD GLUCOSE READINGS GREATER THAN 300 OR LESS THAN 70 RN/OUTBOUND SALES ADVISOR/PHYSIOTHERAPIST'S ASSISTANT TO INSTRUCT PATIENT ON IMPORTANCE OF HGBA1C MONITORING, KIDNEY FUNCTION TEST, EYE AND FOOT EXAMS. [code = DIABETES MANAGEMENT; RN TO ASSESS AND TEACH, OUTBOUND SALES ADVISOR/PHYSIOTHERAPIST'S ASSISTANT TO OBSERVE AND TEACH INSTRUCTIONS OF DIABETIC CARE TO INCLUDE: DIET DIABETIC SKIN CARE, SIGNS AND SYMPTOMS OF HYPO/HYPERGLYCEMIA, PROPER ADMINISTRATION OF DIABETIC MEDICATION. RN/OUTBOUND SALES ADVISOR/PHYSIOTHERAPIST'S ASSISTANT TO INSTRUCT ON DIABETIC FOOT CARE AND MONITOR FOR SKIN LESIONS ON LOWER EXTREMITIES. BLOOD GLUCOSE TESTING DAILY RN TO ASSESS AND TEACH, OUTBOUND SALES ADVISOR/PHYSIOTHERAPIST'S ASSISTANT TO OBSERVE AND TEACH PATIENT/CAREGIVER ABILITY TO PERFORM AND RECORD BLOOD GLUCOSE TESTING ORDERED AND TO REPORT ABNORMAL FINDINGS TO PHYSICIAN. RN/OUTBOUND SALES ADVISOR/PHYSIOTHERAPIST'S ASSISTANT MAY PERFORM BLOOD GLUCOSE TEST NEEDED. RN/OUTBOUND SALES ADVISOR/PHYSIOTHERAPIST'S ASSISTANT TO REPORT TO PHYSICIAN BLOOD GLUCOSE READINGS GREATER THAN 300 OR LESS THAN 70 RN/OUTBOUND SALES ADVISOR/PHYSIOTHERAPIST'S ASSISTANT TO INSTRUCT PATIENT ON IMPORTANCE OF HGBA1C MONITORING, KIDNEY FUNCTION TEST, EYE AND FOOT EXAMS.] Future Scheduled Test PAIN MANAG EMENT; RN TO ASSESS AND TEACH, OUTBOUND SALES ADVISOR/PHYSIOTHERAPIST'S ASSISTANT TO OBSERVE AND TEACH AND PROVIDE EDUCATION ON PAIN MANAGEMENT TECHNIQUES. [code = PAIN MANAGEMENT; RN TO ASSESS AND TEACH, OUTBOUND SALES ADVISOR/PHYSIOTHERAPIST'S ASSISTANT TO OBSERVE AND TEACH AND PROVIDE EDUCATION ON PAIN MANAGEMENT TECHNIQUES.] Future Scheduled Test RN/PHYSIOTHERAPIST'S ASSISTANT/OUTBOUND SALES ADVISOR TO PERFORM/TEACH INCISION CARE TO SUPRAPUBIC AND PERINEUM AREA: KEEP CLEAN AND DRY. INSPECT DAILY. NO LOTIONS OR OINTMENTS TO INCISIONS. MAY SHOWER AND PAT INCISIONS DRY. LEAVE ADHESIVE INTACT. [code = RN/PHYSIOTHERAPIST'S ASSISTANT/OUTBOUND SALES ADVISOR TO PERFORM/TEACH INCISION CARE TO SUPRAPUBIC AND PERINEUM AREA: KEEP CLEAN AND DRY. INSPECT DAILY. NO LOTIONS OR OINTMENTS TO INCISIONS. MAY SHOWER AND PAT INCISIONS DRY. LEAVE ADHESIVE INTACT. ] Future Scheduled Test PRN VISITS ; NUMBER OF RN/PHYSIOTHERAPIST'S ASSISTANT/OUTBOUND SALES ADVISOR VISITS: 1 RN/PHYSIOTHERAPIST'S ASSISTANT/OUTBOUND SALES ADVISOR TO PERFORM: ASSESSMENT AND EDUCATION FOR THE FOLLOWING REASONS: INTEGUMENTARY/INCISION COMPLICATIONS [code = PRN VISITS; NUMBER OF RN/PHYSIOTHERAPIST'S ASSISTANT/OUTBOUND SALES ADVISOR VISITS: 1 RN/PHYSIOTHERAPIST'S ASSISTANT/OUTBOUND SALES ADVISOR TO PERFORM: ASSESSMENT AND EDUCATION FOR THE FOLLOWING REASONS: INTEGUMENTARY/INCISION COMPLICATIONS] Future Scheduled Test RISK FOR H OSPITALIZATION; RN TO ASSESS/TEACH, OUTBOUND SALES ADVISOR/PHYSIOTHERAPIST'S ASSISTANT TO OBSERVE/TEACH PATIENT/CAREGIVER ON RISK FOR HOSPITALIZATION/EMERGENCY ROOM VISITS, TEACH SIGNS AND SYMPTOMS THAT PUT PATIENT AT RISK, WHEN TO NOTIFY NURSE/PHYSICIAN OF COMPLICATIONS/DECLINE, AND WHEN TO CALL 911. [code = RISK FOR HOSPITALIZATION; RN TO ASSESS/TEACH, OUTBOUND SALES ADVISOR/PHYSIOTHERAPIST'S ASSISTANT TO OBSERVE/TEACH PATIENT/CAREGIVER ON RISK FOR HOSPITALIZATION/EMERGENCY ROOM VISITS, TEACH SIGNS AND SYMPTOMS THAT PUT PATIENT AT RISK, WHEN TO NOTIFY NURSE/PHYSICIAN OF COMPLICATIONS/DECLINE, AND WHEN TO CALL 911.] Future Scheduled Test CARDIOVASC ULAR SYSTEM; RN TO ASSESS/TEACH, PHYSIOTHERAPIST'S ASSISTANT/OUTBOUND SALES ADVISOR TO OBSERVE/TEACH RELATED TO ALTERED CARDIOVASCULAR STATUS TO MINIMIZE COMPLICATIONS AND REDUCE HOSPITALIZATION. [code = CARDIOVASCULAR SYSTEM; RN TO ASSESS/TEACH, PHYSIOTHERAPIST'S ASSISTANT/OUTBOUND SALES ADVISOR TO OBSERVE/TEACH RELATED TO ALTERED CARDIOVASCULAR STATUS TO MINIMIZE COMPLICATIONS AND REDUCE HOSPITALIZATION.] Future Scheduled Test HYPERTENSI ON MANAGEMENT; RN TO ASSESS AND TEACH, PHYSIOTHERAPIST'S ASSISTANT/OUTBOUND SALES ADVISOR TO OBSERVE AND TEACH WARNING SIGNS AND SYMPTOMS TO AVOID HOSPITALIZATION. [code = HYPERTENSION MANAGEMENT; RN TO ASSESS AND TEACH, PHYSIOTHERAPIST'S ASSISTANT/OUTBOUND SALES ADVISOR TO OBSERVE AND TEACH WARNING SIGNS AND SYMPTOMS TO AVOID HOSPITALIZATION.] Future Scheduled Test URINARY MO LECULAR TESTING PROTOCOL UP TO 2 PRN RN/PHYSIOTHERAPIST'S ASSISTANT/OUTBOUND SALES ADVISOR VISITS MAY BE PERFORMED FOR S/S OF UTI. RN TO ASSESS, PHYSIOTHERAPIST'S ASSISTANT/OUTBOUND SALES ADVISOR TO OBSERVE INITIATION OF UTI PROTOCOL. RN/OUTBOUND SALES ADVISOR/PHYSIOTHERAPIST'S ASSISTANT TO INSTRUCT PATIENT AND/OR CAREGIVER ON S/S OF UTI TO REPORT TO RN/OUTBOUND SALES ADVISOR/PHYSIOTHERAPIST'S ASSISTANT IF NEW OR WORSENING SYMPTOMS. DRINK PLENTY OF WATER THROUGHOUT THE DAY TO MAINTAIN HYDRATION (UNLESS CONTRAINDICATED.) URINATE WHEN THE URGE IS FELT, DO NOT WAIT. WASH GENITALS DAILY. WIPE FROM FRONT TO BACK AFTER HAVING A BOWEL MOVEMENT. RN/OUTBOUND SALES ADVISOR/PHYSIOTHERAPIST'S ASSISTANT TO OBTAIN MOLECULAR URINE TESTING BY OPTION 1 OR OPTION 2 RN/OUTBOUND SALES ADVISOR/PHYSIOTHERAPIST'S ASSISTANT TO OBTAIN U/A WITH REFLEX TO UTI PANEL (MOLECULAR) VIA CLEAN CATCH URINE AND IF UNABLE TO OBTAIN MAY PERFORM AN IN AND OUT CATH. IF PATIENT HAS INDWELLING CATHETER MAY OBTAIN FROM SAMPLING PORT. RN/OUTBOUND SALES ADVISOR/PHYSIOTHERAPIST'S ASSISTANT TO OBTAIN UTI PANEL (MOLECULAR) VIA SWAB COLLECTION METHOD FROM ADULT BRIEF/DIAPER OR PAD IF PATIENT IS INCONTINENT. NOTIFY PROVIDER OF RESULTS AND OBTAIN FURTHER ORDERS. [code = URINARY MOLECULAR TESTING PROTOCOL UP TO 2 PRN RN/PHYSIOTHERAPIST'S ASSISTANT/OUTBOUND SALES ADVISOR VISITS MAY BE PERFORMED FOR S/S OF UTI. RN TO ASSESS, PHYSIOTHERAPIST'S ASSISTANT/OUTBOUND SALES ADVISOR TO OBSERVE INITIATION OF UTI PROTOCOL. RN/OUTBOUND SALES ADVISOR/PHYSIOTHERAPIST'S ASSISTANT TO INSTRUCT PATIENT AND/OR CAREGIVER ON S/S OF UTI TO REPORT TO RN/OUTBOUND SALES ADVISOR/PHYSIOTHERAPIST'S ASSISTANT IF NEW OR WORSENING SYMPTOMS. DRINK PLENTY OF WATER THROUGHOUT THE DAY TO MAINTAIN HYDRATION (UNLESS CONTRAINDICATED.) URINATE WHEN THE URGE IS FELT, DO NOT WAIT. WASH GENITALS DAILY. WIPE FROM FRONT TO BACK AFTER HAVING A BOWEL MOVEMENT. RN/OUTBOUND SALES ADVISOR/PHYSIOTHERAPIST'S ASSISTANT TO OBTAIN MOLECULAR URINE TESTING BY OPTION 1 OR OPTION 2 RN/OUTBOUND SALES ADVISOR/PHYSIOTHERAPIST'S ASSISTANT TO OBTAIN U/A WITH REFLEX TO UTI PANEL (MOLECULAR) VIA CLEAN CATCH URINE AND IF UNABLE TO OBTAIN MAY PERFORM AN IN AND OUT CATH. IF PATIENT HAS INDWELLING CATHETER MAY OBTAIN FROM SAMPLING PORT. RN/OUTBOUND SALES ADVISOR/PHYSIOTHERAPIST'S ASSISTANT TO OBTAIN UTI PANEL (MOLECULAR) VIA SWAB [...] TO MINIMIZE COMPLICATIONS AND AVOID HOSPITALIZATION BY 5.15.25 Goal Provider Goal - PATIENT WILL DEMONSTRATE IMPROVEMENT IN S/S OF UTI TO AVOID HOSPITALIZATION. Encounters Start Date/Time End Date/Time Encounter Type Admission Type Attending [facility] Care Department Encounter ID Discharge Date Discharge Status Discharge Condition Discharge Reason Percent Goals Met 2024-11-14 00:00:00 2025-01-12 00:00:00 Outpatient NEW ADMISSION [facility] [id number] 84.00
--- OUTSIDE RECORDS SUMMARY | 2025-01-03 00:33 | XMS_ITS ---
Author Organization [facility] [place] [address] Address [address] [place] [address] Care Team Providers Care Bridal Sales Consultant Name Role Phone Fuentes Orellana MD Primary Care Provider [phone] Itz Iyer MD Unavailable [phone] Shawnee Mckinney MD Unavailable [phone] Chicho Clayton MD Unavailable Maria Guadalupe Palacios RN Unavailable Unava ilable Lupillo Davenport MD Unavailable [phone] Danis Meza TRUCK DRIVER TEAMSTER Unavailable Antonette Owens NP Unavailable Aniceto Foley MD Unavailable [phone] Active Problems Problem Noted Date Diagnosed [...] (10/21/2022): Added automatically from request for surgery [id number] Assessment & Plan (10/30/2022 2:56 PM PHYSICAL THERAPY AID): - OR 3/2 for planned R CEA - OU status, Q2h NV/VS monitoring - Bedrest today, OOB/PT POD #1 - SBP goal 100-160, nicardipine for elevated BP - Continue aspirin and statin - Plan to stager home medications and resume overnight Atherosclerosis of [place] ar teries of extremities with intermittent claudication, bilateral legs 06/03/2022 Melanoma 01/10/2021 Anxiety 01/10/2021 DM (diabetes mellitus) 01/10/2021 Assessment & Plan (10/30/2022 9:59 AM PHYSICAL THERAPY AID): - A1c 7.6% 10/2022 - SSI while inpatient - CC diet when eating Elevated left ventricular end-diastolic pressure (LVEDP) 11/15/2019 Encounter for surgical after care following surgery of circulatory system 05/20/2019 Prostate cancer 09/10/2018 Assessment & Plan (10/27/2018 9:53 AM PHYSICAL THERAPY AID): Follows with urology, has his PSA monitored it is increasing, but still WNL 1.4 Assessment & Plan (09/22/2018 11:35 AM PHYSICAL THERAPY AID): Has close follow up with his oncologist. His PSA was slightly elevated on last check. Hyperlipidemia 09/21/2017 Assessment & Plan (06/30/2018 9:38 AM CDT): His last lipid panel was within acceptable range; he will continue on a high intensity statin. Assessment & Plan (09/21/2017 11:34 AM PHYSICAL THERAPY AID): Continue Lipitor 40 mg daily. Essential hypertension 07/20/2017 Assessment & Plan (10/30/2022 2:57 PM PHYSICAL THERAPY AID): - Tight BP goals post-procedure - Continue home medications as indicated by BP goals as above, staggering overnight for gentle BP control Assessment & Plan (10/27/2018 9:54 AM PHYSICAL THERAPY AID): Hypertension is unchanged. Dietary sodium restriction. Blood pressure will be reassessed in 4 weeks. Assessment & Plan (09/22/2018 11:38 AM PHYSICAL THERAPY AID): Hypertension remains elevated. He is increasing his [...] today Assessment & Plan (09/21/2017 11:33 AM PHYSICAL THERAPY AID): Blood pressure is well controlled today. Last visit we added HCTZ 12.5 mg daily. Continue current medications Assessment & Plan (08/10/2017 11:26 AM PHYSICAL THERAPY AID): Blood pressure is not controlled. Add hydrochlorothiazide 12.5 mg p.o. daily. He is compliant with medications but always add salt to food which I advised him not to do that. Assessment & Plan (07/20/2017 9:19 AM PHYSICAL THERAPY AID): Blood pressure remains uncontrolled. We will order renal Doppler ultrasound to rule out renal artery stenosis given the fact that he has peripheral vascular disease and coronary artery disease. I will increase amlodipine from 5-10 mg p.o. daily. If that does not control the blood pressure we will add hydrochlorothiazide 12.5 mg p.o. Daily. Coronary artery disease invo lving [place] coronary artery of [place] heart without angina pectoris 07/20/2017 Assessment & Plan (10/30/2022 9:58 AM PHYSICAL THERAPY AID): - Continue home medications as able - Maintained on Brilinta as an outpatient; held 1 week prior to OR - Will discuss with surgery team when to safely resume post-procedure Assessment & Plan (10/27/2018 9:59 AM PHYSICAL THERAPY AID): Coronary artery disease is improving with lifestyle modifications. Continue current treatment regimen. Cardiac status will be reassessed in 3 months. No chest pain. Minimal SOB. Continue asa, statin, brilinta Assessment & Plan (09/22/2018 11:36 AM PHYSICAL THERAPY AID): Coronary artery disease is unchanged. Regular aerobic [...] BB. Assessment & Plan (09/21/2017 11:33 AM PHYSICAL THERAPY AID): Continue aspirin, Brilinta, Toprol XL and atorvastatin. Assessment & Plan (08/10/2017 11:27 AM PHYSICAL THERAPY AID): Continue Brilinta and aspirin. Asymptomatic. Assessment & Plan (07/20/2017 9:19 AM PHYSICAL THERAPY AID): Continue aspirin, Brilinta, Lipitor , metoprolol PVD (peripheral vascular disease) 07/20/2017 Assessment & Plan (10/27/2018 9:21 AM PHYSICAL THERAPY AID): S/P bilateral ALVA angioplasty; right EIA angioplasty/stent 11/21/14. S/P aortoiliac angioplasty/stent 05/28/09. Continues on asa, statin and brilinta Assessment & Plan (09/21/2017 11:34 AM PHYSICAL THERAPY AID): He follows up with vascular surgery at [facility] Assessment & Plan (08/10/2017 11:27 AM PHYSICAL THERAPY AID): Renal ultrasound suggest more than 60% stenosis in the right renal artery and infrarenal stenosis 50-70%. He follows up with Dr. Foley from vascular surgery at [facility] Assessment & Plan (07/20/2017 9:20 AM PHYSICAL THERAPY AID): Patient will follow up with Dr. Foley [...] 02/09/2019 Assessment & Plan (10/27/2018 10:17 AM PHYSICAL THERAPY AID): Persistent dizziness. Has stopped caffeine intake. Has [...] implant or graft 6 02/09/2019 Atherosclerosis of [place] artery of extremity 04/15/20 16 02/09/2019 Assessment & Plan (09/22/2018 11:26 AM PHYSICAL THERAPY AID): 80% circumflex s/p RICHARD. 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 {plan; hypertension for POC:[id number]} Blood pressure will be reassessed {plan; follow-up 2 weeks/4weeks/3months:[id number]}. Increase amolodipine to 10 mg Continue all [...]
--- OUTSIDE RECORDS SUMMARY | 2025-01-03 00:33 | XMS_ITS | Referral Summary ---
Author Organization [facility] [address] [facility] [address] [place] [address] Care Team Providers Care Optics Test Technician Name Role Phone Fuentes Orellana MD Primary Care Provider Itz Iyer MD Unavailable [phone] Shawnee Mckinney MD Unavailable [phone] Chicho Clayton MD Unavailable Maria Guadalupe Palacios RN Unavailable Unava ilable Lupillo Davenport MD Unavailable [phone] Danis Meza RUBBER STAMP DIE INSPECTOR Unavailable Antonette Owens NP Unavailable Aniceto Foley MD Unavailable [phone] Encounters Date Type Department Care Team Description 12/09/2024 1:00 PM CDT Office Visit [facility] Medical [facility] Cardiology [address] [place] [address] Kay Ward NP 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 (Primary Dx); Orthostatic hypotension; LVH (left ventricular hypertrophy); PVD (peripheral vascular disease); Preoperative cardiovascular examination 11/09/2024 5:14 AM CDT - 11/12/2024 2:30 PM CDT Hospital Encounter [id number] [place] [address] Kami Meneses MD Intrinsic urethral sphincter deficiency (Primary Dx) Discharge Disposition: Discharge to home, home health skilled care 11/10/2024 Telephone [facility] Home Care Services [address] [place] [address] [address] [place] [address] Gregor Cheryl 11/09/2024 7:30 AM CDT - 11/09/2024 10:00 AM CDT Surgery [facility] Operating Room [address] [place] [phone] Kami Meneses MD Cystoscopy 11/09/2024 7:30 AM CDT Anesthesia Event [facility] Operating Room [address] [place] [phone] Lai Gregg DO [place], Justin Kyle, CRNA 10/26/2024 12:45 PM [facility] [employer] [facility]ING Pre-Admission Testing [facility] Pre Anesthesia Testing [address] [place] [phone] Stress incontinence 10/20/2024 10:30 AM [employer]ING AND HANGING Office Visit [facility] Medical [facility] Cardiology 10 [facility] [address] [place] [phone] Kya Ward NP 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 (Primary Dx); Preoperative cardiovascular examination; Orthostatic hypotension; LVH (left ventricular hypertrophy); PVD (peripheral vascular disease) 10/13/2024 Telephone [facility] Cardiology [address] [place] [address] [address] [place] [phone] Mariangel Palmer MD cardiac clearance from Last [...] immediate release tabletIndicatio ns:Coronary artery disease involving cedarville coronary artery of [place] heart without angina pectoris Take 1 tablet [...] (10/21/2022): Added automatically from request for surgery [id number] Assessment & Plan (10/30/2022 2:56 PM FRAMING AND HANGING): - OR 3/2 for planned R CEA - OU status, Q2h NV/VS monitoring - Bedrest today, OOB/PT POD #1 - SBP goal 100-160, nicardipine for elevated BP - Continue aspirin and statin - Plan to stager home medications and resume overnight Atherosclerosis of [place] ar teries of extremities with intermittent claudication, bilateral legs 06/03/2022 Melanoma 01/10/2021 Anxiety 01/10/2021 DM (diabetes mellitus) 01/10/2021 Assessment & Plan (10/30/2022 9:59 AM FRAMING AND HANGING): - A1c 7.6% 10/2022 - SSI while inpatient - CC diet when eating Elevated left ventricular end-diastolic pressure (LVEDP) 11/15/2019 Encounter for surgical after care following surgery of circulatory system 05/20/2019 Prostate cancer 09/10/2018 Assessment & Plan (10/27/2018 9:53 AM FRAMING AND HANGING): Follows with urology, has his PSA monitored it is increasing, but still WNL 1.4 Assessment & Plan (09/22/2018 11:35 AM FRAMING AND HANGING): Has close follow up with his oncologist. His PSA was slightly elevated on last check. Hyperlipidemia 09/21/2017 Assessment & Plan (06/30/2018 9:38 AM CDT): His last lipid panel was within acceptable range; he will continue on a high intensity statin. Assessment & Plan (09/21/2017 11:34 AM FRAMING AND HANGING): Continue Lipitor 40 mg daily. Essential hypertension 07/20/2017 Assessment & Plan (10/30/2022 2:57 PM FRAMING AND HANGING): - Tight BP goals post-procedure - Continue home medications as indicated by BP goals as above, staggering overnight for gentle BP control Assessment & Plan (10/27/2018 9:54 AM FRAMING AND HANGING): Hypertension is unchanged. Dietary sodium restriction. Blood pressure will be reassessed in 4 weeks. Assessment & Plan (09/22/2018 11:38 AM FRAMING AND HANGING): Hypertension remains elevated. He is increasing his [...] today Assessment & Plan (09/21/2017 11:33 AM FRAMING AND HANGING): Blood pressure is well controlled today. Last visit we added HCTZ 12.5 mg daily. Continue current medications Assessment & Plan (08/10/2017 11:26 AM FRAMING AND HANGING): Blood pressure is not controlled. Add hydrochlorothiazide 12.5 mg p.o. daily. He is compliant with medications but always add salt to food which I advised him not to do that. Assessment & Plan (07/20/2017 9:19 AM FRAMING AND HANGING): Blood pressure remains uncontrolled. We will order renal Doppler ultrasound to rule out renal artery stenosis given the fact that he has peripheral vascular disease and coronary artery disease. I will increase amlodipine from 5-10 mg p.o. daily. If that does not control the blood pressure we will add hydrochlorothiazide 12.5 mg p.o. Daily. Coronary artery disease invo lving cedarville coronary artery of [place]edar[place] heart without angina pectoris 07/20/2017 Assessment & Plan (10/30/2022 9:58 AM FRAMING AND HANGING): - Continue home medications as able - Maintained on Brilinta as an outpatient; held 1 week prior to OR - Will discuss with surgery team when to safely resume post-procedure Assessment & Plan (10/27/2018 9:59 AM FRAMING AND HANGING): Coronary artery disease is improving with lifestyle modifications. Continue current treatment regimen. Cardiac status will be reassessed in 3 months. No chest pain. Minimal SOB. Continue asa, statin, brilinta Assessment & Plan (09/22/2018 11:36 AM FRAMING AND HANGING): Coronary artery disease is unchanged. Regular aerobic [...] BB. Assessment & Plan (09/21/2017 11:33 AM FRAMING AND HANGING): Continue aspirin, Brilinta, Toprol XL and atorvastatin. Assessment & Plan (08/10/2017 11:27 AM FRAMING AND HANGING): Continue Brilinta and aspirin. Asymptomatic. Assessment & Plan (07/20/2017 9:19 AM FRAMING AND HANGING): Continue aspirin, Brilinta, Lipitor , metoprolol PVD (peripheral vascular disease) 07/20/2017 Assessment & Plan (10/27/2018 9:21 AM FRAMING AND HANGING): S/P bilateral ALVA angioplasty; right EIA angioplasty/stent 11/21/14. S/P aortoiliac angioplasty/stent 05/28/09. Continues on asa, statin and brilinta Assessment & Plan (09/21/2017 11:34 AM FRAMING AND HANGING): He follows up with vascular surgery at [facility] Assessment & Plan (08/10/2017 11:27 AM FRAMING AND HANGING): Renal ultrasound suggest more than 60% stenosis in the right renal artery and infrarenal stenosis 50-70%. He follows up with Dr. Foley from vascular surgery at [facility] Assessment & Plan (07/20/2017 9:20 AM FRAMING AND HANGING): Patient will follow up with Dr. Foley from vascular surgery. He does have some claudication when he walks. Intrinsic urethral sphincter deficiency 06/08/20 15 Resolved Problems Problem Noted Date Diagnosed Date Resolved Date Dizzinesses 10/27/2018 02/09/2019 Assessment & Plan (10/27/2018 10:17 AM FRAMING AND HANGING): Persistent dizziness. Has stopped caffeine intake. Has [...] implant or graft 6 02/09/2019 Atherosclerosis of [place]edar[place] artery of extremity 04/15/20 16 02/09/2019 Assessment & Plan (09/22/2018 11:26 AM FRAMING AND HANGING): 80% circumflex s/p RICHARD. Moderate 30 % LAD with bridging Impotence of organic origin 09/18/2015 02/09/2019 Urinary tract infection 01/18/201501/29 Incontinence 01/18/2015 02/09/2019 Stricture, urethra 07/31/2011 9 Overview (12/10/2017): Description: Dilation 06/09/11 Nocturia 11/28/2010 02/09/2019 Hypertension 05/16/2009 02/09/2019 Assessment & Plan (10/27/2018 10:11 AM FRAMING AND HANGING): Hypertension is {improving/stable/worsenin}. {plan; hypertension for POC:[id number]} Blood pressure will be reassessed {plan; follow-up 2 weeks/4weeks/3months:[id number]}. Increase amolodipine to 10 mg Continue all [...] ASA and ticagrelor, and follows with Dr. Floey from Vascular Surgery. Hypercholesterolemia 05/16/2009 019 Immunizations [...] drink = 0.6 oz pu re alcohol) [facility] Utilities Answer Date Recorded In the past 12 months has [employer], gas, oil, or water [employer] threatened to shut off services in your [...] often do you attend chur ch or confucianism services? More than 4 times per year 11/11/2024 Do you belong to any clubs o r organizations such as yazidism groups, unions, fraternal or athletic groups, or [...] any time in the past 12 m [facility], were you homeless or living in a senior living (including now)? No 11/11/2024 Personal Safety Answer Date Recorded Have you ever been in or are you currently in a harmful physical or emotional relationship or is someone making you feel afraid or unsafe? Denies 11/09/2024 Sex and Gender Information Value Date Recorded Sex Assigned at Not on file Legal Sex Male 12:32 AM [employer]ING AND HANGING Gender Identity Not on file Sexual Orientation [...] on file Medical Devices Implanted Type Area Mathematics Teacher Device Identifier Shelf Expiration Date Model / [...] and 61 to 70 cm pressure-regulating balloon. [employer] Vascu-Guard 8x.8cm Peripheral Patch Vascular Bovine Pericardium [id number]-[id number] - [id number] Implanted:Qty: 1 on 10/30/2022 by Aniceto Foley MD at [facility] Right: Carotid [employer] [id number] 07/09/2023 [id number]-[id number] / / [id number] [employer] Sandra Ams 800 Kit Accessory Sterile Disposable Latex Free Urinary [id number] - [id number] Implanted:Qty: 1 on 11/09/2024 by Kami Meneses MD at [facility] N/A: Urethra [employer] Sandra [id number] 03/09/2029 [id number] / / [id number] [employer] Sandra Cuff Urethral Ams 800 Inhibizone 3.5cm [id number] - [id number] Implanted:Qty: 1 on 11/09/2024 by Kami Meneses MD at [facility] N/A: Urethra [employer] Sandra [id number] 02/22/2026 [id number] / / [id number] [employer] Sandra Ams 800 Pressure Balloon Sphincter 61-70cu Cm Implant Urological [id number] - [id number] Implanted:Qty: 1 on 11/09/2024 by Kami Meneses MD at [facility] N/A: Abdomen [employer] Sandra [id number] 03/20/2029 [id number] / / [id number] [employer] Sandra Ams 800 Control Pump Sphincter Implant Urological [employer] [id number] - [id number] Implanted:Qty: 1 on 11/09/2024 by Kami Meneses MD at [facility] N/A: Scrotum [employer] Sandra [id number] 02/15/2026 [id number] / / [id number] Procedures Procedure Name Priority Date/Time Associated Diagnosis [...] DEVICE Routine 11/09/2024 9 :[address] AN PROCEDURE PLACEHOLDER Routine 11/09/2024 7:[address] AN ELECTIVE ENDOTRACHEAL AIRWAY Routine 11/09/2024 7:54 AM CDT ARTIFICIAL URINARY SPHINCTER 11/09/2024 7:32 AM CDT Stress incontinence CYSTOSCOPY 11/09/2024 7:32 AM CDT Stress incontinence POCT GLUCOSE DEVICE Routine 11/09/2024 6 :43 AM CDT URINALYSIS, MICROSCOPIC ONLY Routine 10/26/2024 1:43 PM [employer]ING AND HANGING Stress incontinence URINALYSIS AND REFLEX TO MICROSCOPIC AND CULTURE Routine 10/26/2024 1:43 PM [employer]ING AND HANGING Stress incontinence LIPID PANEL Routine 03/22/2024 10:23 AM CDT Coronary artery disease involving [place]edar[place] coronary artery of [place] heart without angina pectoris CTA ABDOMINAL AORTA AND BILATERAL ILIOFEMORAL RUNOFF Schedule Routine, Read Routine (OP Routine) 12/15/2023 1:56 PM CDT PVD (peripheral vascular disease) HEMOGLOBIN A1C Routine 09/22/2023 12:19 PM FRAMING AND HANGING Prostate cancer (HCC) from Last 3 Months [...] DEVICE F inal Result Performing Organization Address [facility] Co de Phone Number [facility] [address] [place] [address] * (ABNORMAL) eGFR (11/12/2024 8:15 AM CDT) [...] ORDERABLES Fi nal Result Performing Organization Address [facility]/ZIP Co de Phone Number [facility] [address] Department [place] [address] * (ABNORMAL) Basic metabolic panel (11/12/2024 8:15 AM CDT) Pathologist [facility] Sodium 138 135 - 145 mmol/L Potassium, pl 4.2 3.3 - 4.9 mmol/L [facility] Chloride 106 97 - 110 mmol/L [facility] CO2 21(L) 22 - 32 mmol/L [facility] Anion gap 11 2 - 15 mmol/L [facility] BUN 28(H) 6 - 25 mg/dL [facility] Creatinine 1.26 0.80 - 1.30 mg/dL [facility] Glucose 136 70 - 199 mg/dL [facility] Comment: Interpretive Data Fasting glucose >/= 126 [...] 2022. Calcium 9.2 8.5 - 10.3 mg/dL [facility] Blood 11/12/2024 8:15 AM CDT 11/12/2024 9:17 AM CDT us Kalina Coronado NP LAB BLOOD ORDERABLES Fi nal Result Performing Organization Address City/[facility]/ZIP Co de Phone Number [facility] [address] [place] [address] * POCT glucose (11/12/2024 5:49 AM CDT) Glucose, POC 125 70 - 199 mg/dL Comment: For Glucose values <35 mg/dl when Hematocrit is >60 mg/dl,the test may not accurately detect significant hypoglycemia,and testing in the Laboratory should be considered if clinically indicated. Blood 11/12/2024 5:49 AM CDT 11/12/2024 5:49 AM CDT Kami Gleason MD LAB POCT ORDERABLES - DEVICE F inal Result [facility] [address] [place] [address] * (ABNORMAL) POCT glucose (11/11/2024 8:22 PM CDT) Glucose, POC 214(H) 70 - 199 mg/dL Comment: For Glucose values <35 mg/dl when Hematocrit is >60 mg/dl,the test may not accurately detect significant hypoglycemia,and testing in the Laboratory should be considered if clinically indicated. Blood 11/11/2024 8:22 PM CDT 11/11/2024 8:22 PM CDT Result [facility] LAB POCT ORDERABLES - DEVICE F inal Result Performing Organization Address [facility] de Phone Number [facility] [address] [facility] [place] [address] * POCT glucose (11/11/2024 5:14 PM CDT) Glucose, POC 127 70 - 199 mg/dL Comment: For Glucose values <35 mg/dl when Hematocrit is >60 mg/dl,the test may not accurately detect significant hypoglycemia,and testing in the Laboratory should be considered if clinically indicated. Blood 11/11/2024 5:14 PM CDT 11/11/2024 5:14 PM CDT Result [facility] LAB POCT ORDERABLES - DEVICE F inal Result Performing Organization Address [facility] de Phone Number [facility] [address] [facility] [place] [address] * POCT glucose (11/11/2024 11:29 AM CDT) [...] DEVICE F inal Result Performing Organization Address [facility] Co de Phone Number [facility] [address] Department [place] [address] * (ABNORMAL) eGFR (11/11/2024 7:48 AM CDT) Pathologist [facility] eGFR 48(L) >=60 mL/min/1. 73 m2 Comment: [...] ORDERABLES Final Res ult Performing Organization Address City/[facility]/ZIP Co de Phone Number [facility] [address] Department [place] [address] * Differential, auto (11/11/2024 7:48 AM CDT) Pathologist [facility] Neutrophil abs 5.4 1.5 - 6.5 K/cumm Imm gran abs 0.0 0.0 - 0.1 K/cumm [facility] Lymphocyte abs 1.8 0.8 - 3.3 K/cumm [facility] Monocyte abs 0.8 0.2 - 0.8 K/cumm [facility] Eosinophil abs 0.2 0.0 - 0.5 K/cumm [facility] Basophil abs 0.0 0.0 - 0.1 K/cumm [facility] Neutrophil pct 65.8 % [facility] Comment: Interpretive Data Percent cell count reference ranges are not reported, since discordance with absolute values may lead to misinterpretation of CBC data. Current Interpretive Data was last revised on 2017. Imm gran pct 0.5 % [facility] Comment: Interpretive Data Percent cell count reference ranges are not reported, since discordance with absolute values may lead to misinterpretation of CBC data. Current Interpretive Data was last revised on 2017. Lymphocyte pct 21.7 % [facility] Comment: Interpretive Data Percent cell count reference ranges are not reported, since discordance with absolute values may lead to misinterpretation of CBC data. Current Interpretive Data was last revised on 2017. Monocyte pct 10.0 % [facility] Comment: Interpretive Data Percent cell count reference ranges are not reported, since discordance with absolute values may lead to misinterpretation of CBC data. Current Interpretive Data was last revised on 2017. Eosinophil pct 1.8 % [facility] Comment: Interpretive Data Percent cell count reference ranges are not reported, since discordance with absolute values may lead to misinterpretation of CBC data. Current Interpretive Data was last revised on 2017. Basophil pct 0.2 % [facility] Comment: Interpretive Data Percent cell count reference ranges are not reported, since discordance with absolute values may lead to misinterpretation of CBC data. Current Interpretive Data was last revised on 2017. Blood 11/11/2024 7:48 AM CDT 11/11/2024 8:16 AM CDT us Kalina Coronado NP LAB BLOOD ORDERABLES Fi nal Result [facility] [address] Department [place] [address] * (ABNORMAL) CBC with auto differential (11/11/2024 7:48 AM CDT) [facility] WBC 8.2 3.8 - 9.9 K/cumm Hgb 11.1(L) 13.0 - 17.5 g/dL [facility] Hct 34.8(L) 38.9 - 50.3 % [facility] Plt 175 150 - 400 K/cumm [facility] MPV 11.0 9.1 - 12.3 fL [facility] RBC 3.63(L) 4.30 - 5.80 M/cumm [facility] MCV 95.9 81.3 - 96.4 fL [facility] MCH 30.6 27.1 - 33.3 pg [facility] MCHC 31.9(L) 32.3 - 35.7 g/dL [facility] RDW CV 14.2 11.1 - 14.9 % [facility] RDW SD 50.2(H) 35.7 - 48.1 fL [facility] NRBC abs 0.00 0.00 - 0.01 K/cumm [facility] Blood 11/11/2024 7:48 AM CDT 11/11/2024 8:16 AM CDT us Kalina Coronado NP LAB BLOOD ORDERABLES Fi nal Result Performing Organization Address City/[facility]/ZIP Co de Phone Number [facility] [address] [employer] [place], [place] [id number] * Gentamicin level random (11/11/2024 7:48 AM CDT) [facility] Gentamicin random 9.8 mcg/mL Comment: Interpretive Data No reference ranges have been established for random drug levels. Current Interpretive Data was last revised on 2020. Blood 11/11/2024 7:48 AM CDT 11/11/2024 8:16 AM CDT us Kami Gleason MD LAB BLOOD ORDERABLES Final Res ult [facility] [address] [place] [address] * (ABNORMAL) Basic metabolic panel (11/11/2024 7:48 AM CDT) Pathologist [facility] Sodium 134(L) 135 - 145 mmol/L Potassium, pl 4.0 3.3 - 4.9 mmol/L [facility] Chloride 101 97 - 110 mmol/L [facility] CO2 24 22 - 32 mmol/L [facility] Anion gap 9 2 - 15 mmol/L [facility] BUN 35(H) 6 - 25 mg/dL [facility] Creatinine 1.50(H) 0.80 - 1.30 mg/dL [facility] Glucose 136 70 - 199 mg/dL [facility] Comment: Interpretive Data Fasting glucose >/= 126 [...] 2022. Calcium 9.4 8.5 - 10.3 mg/dL [facility] Blood 11/11/2024 7:48 AM CDT 11/11/2024 8:16 AM CDT [facility] LAB BLOOD ORDERABLES Final Res ult [facility] [address] Department [place] [address] * POCT glucose (11/11/2024 6:41 AM CDT) [facility] Glucose, POC 155 70 - 199 mg/dL Comment: For Glucose values <35 mg/dl when Hematocrit is >60 mg/dl,the test may not accurately detect significant hypoglycemia,and testing in the Laboratory should be considered if clinically indicated. Blood 11/11/2024 6:41 AM CDT 11/11/2024 6:41 AM CDT Kami Gleason MD LAB POCT ORDERABLES - DEVICE F inal Result Performing Organization Address [facility] Co de Phone Number [facility] [address] [place] [address] * POCT glucose (11/10/2024 8:11 PM CDT) Glucose, POC 179 70 - 199 mg/dL Comment: For Glucose values <35 mg/dl when Hematocrit is >60 mg/dl,the test may not accurately detect significant hypoglycemia,and testing in the Laboratory should be considered if clinically indicated. Blood 11/10/2024 8:11 PM CDT 11/10/2024 8:11 PM CDT [facility] LAB POCT ORDERABLES - DEVICE F inal Result Performing Organization Address [facility] de Phone Number [facility] [address] [facility] [place] [address] * POCT glucose (11/10/2024 4:46 PM CDT) [...] DEVICE F inal Result Performing Organization Address [facility] Co de Phone Number [facility] [address] [facility] [place] [address] * POCT glucose (11/10/2024 12:00 PM CDT) [...] DEVICE F inal Result Performing Organization Address [facility] de Phone Number [facility] [address] [place] [place] [address] * POCT glucose (11/10/2024 7:38 AM CDT) Glucose, POC 112 70 - 199 mg/dL Comment: For Glucose values <35 mg/dl when Hematocrit is >60 mg/dl,the test may not accurately detect significant hypoglycemia,and testing in the Laboratory should be considered if clinically indicated. Blood 11/10/2024 7:38 AM CDT 11/10/2024 7:38 AM CDT [facility] LAB POCT ORDERABLES - DEVICE F inal Result Performing Organization Address [facility] de Phone Number [facility] [address] [place] [place] [address] * (ABNORMAL) POCT glucose (11/09/2024 8:32 PM CDT) Glucose, POC 222(H) 70 - 199 mg/dL Comment: For Glucose values <35 mg/dl when Hematocrit is >60 mg/dl,the test may not accurately detect significant hypoglycemia,and testing in the Laboratory should be considered if clinically indicated. Blood 11/09/2024 8:32 PM CDT 11/09/2024 8:32 PM CDT [facility] LAB POCT ORDERABLES - DEVICE F inal Result Performing Organization Address [facility]/ZIP Co de Phone Number [facility] [address] [place] [address] * POCT glucose (11/09/2024 5:35 PM CDT) Pathologist [facility] Glucose, POC 171 70 - 199 mg/dL Comment: For Glucose values <35 mg/dl when Hematocrit is >60 mg/dl,the test may not accurately detect significant hypoglycemia,and testing in the Laboratory should be considered if clinically indicated. Blood 11/09/2024 5:35 PM CDT 11/09/2024 5:35 PM CDT Kami Gleason MD LAB POCT ORDERABLES - DEVICE F inal Result Performing Organization Address [facility] Co de Phone Number [facility] [address] Department [place] [address] * (ABNORMAL) eGFR (11/09/2024 4:58 PM CDT) [facility] eGFR 53(L) >=60 mL/min/1. 73 m2 [...] MD LAB BLOOD ORDERABLES Final Res ult [facility] [address] [place] [address] * (ABNORMAL) Basic metabolic panel (11/09/2024 4:58 PM CDT) Sodium 134(L) 135 - 145 mmol/L Potassium, pl 4.6 3.3 - 4.9 mmol/L [facility] Chloride 101 97 - 110 mmol/L [facility] CO2 21(L) 22 - 32 mmol/L [facility] Anion gap 12 2 - 15 mmol/L [facility] BUN 29(H) 6 - 25 mg/dL [facility] Creatinine 1.39(H) 0.80 - 1.30 mg/dL [facility] Glucose 203(H) 70 - 199 mg/dL [facility] Comment: Interpretive Data Fasting glucose >/= 126 [...] 2022. Calcium 10.0 8.5 - 10.3 mg/dL [facility] Blood 11/09/2024 4:58 PM CDT 11/09/2024 5:50 PM CDT Kami Gleason MD LAB BLOOD ORDERABLES Final Res ult [facility] [address] [place] [address] * POCT glucose (11/09/2024 10:08 AM CDT) Glucose, POC 167 70 - 199 mg/dL Comment: For Glucose values <35 mg/dl when Hematocrit is >60 mg/dl,the test may not accurately detect significant hypoglycemia,and testing in the Laboratory should be considered if clinically indicated. Blood 11/09/2024 10:0 8 AM CDT 11/09/2024 10:08 AM CDT [facility] LAB POCT ORDERABLES - DEVICE F inal Result Performing Organization Address [facility] de Phone Number [facility] [address] Department [place] [place], [place] [id number] * POCT glucose (11/09/2024 9:20 AM CDT) Glucose, POC 163 70 - 199 mg/dL Comment: For Glucose values <35 mg/dl when Hematocrit is >60 mg/dl,the test may not accurately detect significant hypoglycemia,and testing in the Laboratory should be considered if clinically indicated. Blood 11/09/2024 9:20 AM CDT 11/09/2024 9:20 AM CDT Result [facility] LAB POCT ORDERABLES - DEVICE F inal Result Performing Organization Address [facility] de Phone Number [facility] [address] [place] [address] * CT AN ELECTIVE ENDOTRACHEAL AIRWAY, CT AN PROCEDURE PLACEHOLDER (11/09/2024 7:54 AM CDT) Narrative Jorge Sun CRNA - 11/09/2024 7:54 AM CDT Jorge Sun CRNA 11/09/2024 7:55 AM Airway Patient location: OR Urgency: elective Indications for airway management: anesthesia and airway protection Difficult airway: no Staff: Supervising provider: Lai Gregg DO Placed by: BRAND STRATEGY MANAGER: Jorge Sun CRNA Emergent airway documentation: [...] POCT ORDERABLES - DEVICE F inal Result [facility] [address] [place] [address] * (ABNORMAL) Urinalysis reflex to microscopic and culture Urine, bladder (10/26/2024 1:43 PM [employer]) Color, ur Straw Yellow Clarity, ur Clear Clear [facility] Specific gravity, ur 1.010 1.003 - 1.030 [facility] pH, urine 6.5 [facility] Comment: Interpretive Data U rine pH is affected by diet, medications, systemic acid-base disturbances, and renal tubular function. pH may affect urinary stone formation. For example, urine pH below 6.0 may help reduce the tendency for calcium phosphate stones and pH greater than 6.0 may reduce the tendency for uric acid stone formation. Source: [facility] Current Interpretive Data was last revised on 2017 Protein, ur ql Trace Negative [facility] Glucose, ur ql Negative Negative [facility] Ketones, ur Negative Negative [facility] Bilirubin, ur Negative Negative [facility] Blood, ur 1+(A) Negative [facility] Urobilinogen, ur <2.0 <2.0 mg/dL [facility] Nitrite, ur Negative Negative [facility] Leukocyte esterase, ur Negative Negative [facility] UA reflex comment Reflex to microscopic UA will be performed. [facility] Urine, bladder 10/26/2024 1: 43 PM [employer] 10/26/2024 2:03 PM [employer] Kami Gleason MD LAB MICROBIOLOGY - GENERAL ORD ERABLES Final Result Performing Organization Address [facility] Co de Phone Number [facility] [address] [facility] [employer] [place], [place] [id number] * Urinalysis, microscopic only (10/26/2024 1:43 PM [employer]) WBC, ur 0-5 0 - 5 /HPF RBC, ur 0-2 0 - 2 /HPF [facility] Culture Reflex Comment Reflex conditions for urine culture (WBC >10) not met. [facility] Urine, bladder 10/26/2024 1: 43 PM [employer] 10/26/2024 2:03 PM [employer] Kami Gleason MD LAB URINE ORDERABLES Final Res ult Performing Organization Address [facility] Co de Phone Number [facility] [address] [facility] [place] [address] * (ABNORMAL) Lipid panel (03/22/2024 [...] on 2018. Triglycerides 115 <=149 mg/dL [facility] Comment: Interpretive Data Ages < or [...] on 2018. HDL 37(L) >=40 mg/dL [facility] Comment: Interpretive Data Ages < or [...] 2018. LDL, calculated 67 <=129 mg/dL [facility] Comment: Interpretive Data Ages < or [...] revised on 2018. Non-HDL Cholesterol 90 mg/dL [facility] Comment: Interpretive Data Ages < [...] last revised on 2018. Chol/HDL ratio 3 [facility] Blood 03/22/2024 10:2 3 AM CDT 03/22/2024 10:52 AM CDT us Antonette Rater RUBBER STAMP DIE INSPECTOR LAB BLOOD ORDERABLES Final Resul t [facility] Department [place] [address] * CTA Abdominal Aorta And Bilateral Iliofemoral [...] * (ABNORMAL) Hemoglobin A1c (09/22/2023 12:19 PM [employer]) Hgb A1C 6.0(H) 4.0 - 5.6 % [...] fasting glucose. Blood 09/22/2023 12:1 9 PM [employer] 09/22/2023 12:45 PM [employer] Chicho Clayton MD LAB BLOOD ORDERABLES Final Resul t [facility] Department [place] [address] from Last 3 Months or Most Recently Relevant to Health Maintenance Insurance [facility] MEDICARE MEDICARE [facility] MEDICARE [facility] MEDICARE [facility] Advance Directives For more information, please contact: [phone] * Full Code (Latest Code Status on File) Date Activated Date Inactivated Comments 11/09/2024 2:36 PM 11/12/2024 6:36 PM * Full Code Date Activated Date Inactivated Comments 10/30/2022 5:29 PM 10/31/2022 7:15 PM * Full Code Date Activated Date Inactivated Comments 08/16/2019 9:46 AM 08/16/2019 5:30 PM Care Teams Optics Test Technician Relationship Specialty Start Date End Date Fuentes Orellana MD PCP - General 11/28/16 Itz Iyer MD [address] [facility] [address] [place], [place] [id number] Consulting Physician Urology 05/31/18 Shawnee Mckinney MD [address] [facility] [address] [place] [address] Referring Physician Urology 06/03/18 Chicho Clayton MD [address] [facility] [address] [place] [address] Medical Oncologist/Hematologis t Medical Oncology 06/07/18 Maria Guadalupe Palacios, RN Registered Nurse 06/10/18 Lupillo Davenport MD Referring Physician Radiation Oncology 06/16/18 Danis Meza NP [address] [place] [address] Nurse Practitioner Urology 10/06/22 Antonette Owens NP [address] [facility] [address] [place] [address] Nurse Practitioner Cardiovascular Disease 10/06/22 Aniceto Foley MD [address] [place] [address] Surgeon Vascular Surgery 10/31/22
--- OUTSIDE RECORDS SUMMARY | 2025-01-03 00:33 | XMS_ITS | Clinical Summary ---
Author Organization [facility] Address [address], [facility] [address] [place] [address] Phone Care Team Providers Care Sanitary Engineer Name Role Phone Fuentes Orellana MD Primary Care Provider Brent Dickinson DO Unavailable [phone] Faviola Jiménez APPLICATION PERFORMANCE ENGINEER, DIRECTOR EDUCATIONAL RADIO Unavailable Shawnee Mckinney MD Unavailable Chicho Clayton MD Unavailable Lai Lambert APPLICATION PERFORMANCE ENGINEER, DIRECTOR EDUCATIONAL RADIO Unavailable [phone] Kami Meneses MD Unavailable [phone] Anette Bond MD Unavailable [phone] Kay Gordon APPLICATION PERFORMANCE ENGINEER, DIRECTOR EDUCATIONAL RADIO Unavailable Kami Meneses MD Unavailable [phone] Allergies No known active allergies Medications [...] Description 12/23/2024 9:00 AM CDT Office Visit [facility] [place] [address] Kami Meneses MD UTI symptoms (Primary Dx) Discharge Disposition: Discharged to home or Selfcare 12/23/2024 Travel 12/21/2024 Telephone [facility] [address] [place] [address] Kami Meneses MD Testicle Pain 12/16/2024 10:45 AM CDT [facility] [place] [address] Kami Meneses MD Stress incontinence (female) (male) (Primary Dx) Discharge Disposition: Discharged to home or Selfcare 12/16/2024 Telephone [facility] [address] [facility] [place] [address] Kami Meneses MD 12/16/2024 Travel 10/26/2024 Telephone [facility] [address] [place] [address] Kami Meneses MD Pre-surgical question from Last [...] Job 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 Date 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..] No growth final 12/25/2024 11:36 PM CDT [facility] Culture (Pre-Op Catheter) Non-Phlebotomy Collection / Unknown 12/23/2024 10:48 AM CDT 12/23/2024 10:48 AM CDT Kami Gleason MD MICROBIOLOGY - GENERAL ORDERAB LES Final Result [facility] [address] [facility] [place] [address], * COLONOSCOPY (05/24/2020) us Brent Dickinson DO PROCEDURE/MINOR SURGICAL ORDERA BLES Final Result from Last 3 Months or Most Recently Relevant to Health Maintenance Insurance MEDICARE [facility] Care Teams Sanitary Engineer Relationship Specialty Start Date End Date Fuentes Orellana MD [address] [address] PCP - General Family Medicine 07/06/15 Brent Dickinson DO [address] [facility] [address] Gastroenterology 06/27/16 Faviola Jiménez APRN, DIRECTOR EDUCATIONAL RADIO [address] [address] Nurse Practitioner Advanced Practice Nurse 07/22/16 Shawnee Mckinney MD [address] [facility] [address] [place] [address] Urologist Urology 06/07/19 Chicho Clayton MD [address] [facility] [address] [place] [address] Oncology 06/13/19 Lai Lambert APRN, DIRECTOR EDUCATIONAL RADIO [address] [place] [address] Nurse Practitioner Advanced Practice Nurse 02/10/23 Kami Meneses MD [address] [address] Consulting Physician Urology 06/16/23 Anette Bond MD #2 [place] [address] Consulting Physician Gastroenterology 12/25/22 Kay Gordon APRN, DIRECTOR EDUCATIONAL RADIO [address] [place] [address] Nurse Practitioner Advanced Practice Nurse 06/16/24 Kami Meneses MD [address] [facility] [address] [address] Consulting Physician Urology 08/19/24
--- OUTSIDE RECORDS SUMMARY | 2025-01-03 00:33 | XMS_ITS | Encounter Summary ---
Author Organization [facility] Address [address] [place] [address] Phone Care Team Providers Care Business Instructor Name Role Phone Fuentes Orellana MD Primary Care Provider [phone] Itz Iyer MD Unavailable [phone] Shawnee Mckinney MD Unavailable [phone] Chicho Clayton MD Unavailable Maria Guadalupe Palacios RN Unavailable Unava ilable Lupillo Davenport MD Unavailable [phone] Danis Meza MECHANICAL RELIABILITY ENGINEER Unavailable [phone] Antonette Owens NP Unavailable Aniceto Foley MD Unavailable [phone] Encounter Details Date Type Department Care [...] on file Legal Sex Male 12:32 AM [employer]IPE [employer] Gender Identity Not on file Sexual Orientation [...] on filedocumented in this encounter Care Teams Business Instructor Relationship Specialty Start Date End Date Fuentse Orellana MD PCP - General 11/28/16 Itz Iyer MD [address] [place] [address] Consulting Physician Urology 05/31/18 Shawnee Mckinney MD [address] [facility] [address] [place] [address] Referring Physician Urology 06/03/18 Chicho Clayton MD [address] [place] [address] Medical Oncologist/Hematologis t Medical Oncology 06/07/18 Maria Guadalupe Palacios, RN Registered Nurse 06/10/18 Lupillo Davenport MD Referring Physician Radiation Oncology 06/16/18 Danis Meza NP [address] [place] [address] Nurse Practitioner Urology 10/06/22 Antonette Owens NP [address] [place] [address] Nurse Practitioner Cardiovascular Disease 10/06/22 Aniceto Foley MD [address] [place] [address] Surgeon Vascular Surgery 10/31/22 documented as of this encounter
--- OUTSIDE RECORDS SUMMARY | 2025-01-03 00:33 | XMS_ITS | Encounter Summary ---
Author Organization [facility] Address [address] [address] [facility] [place] [address] Phone Care Team Providers Care Image Archivist Name Role Phone Fuentes Orellana MD Primary Care Provider [phone] Brent Dickinson DO Unavailable [phone] Faviola Jiménez SENIOR IT BUSINESS ANALYST, HUMAN RESOURCES ADMINISTRATOR Unavailable Shawnee Mckinney MD Unavailable Chicho Clayton MD Unavailable Lai Lambert SENIOR IT BUSINESS ANALYST, HUMAN RESOURCES ADMINISTRATOR Unavailable Kami Meneses MD Unavailable [phone] Anette Bond MD Unavailable [phone] Kay Gordon APRN, HUMAN RESOURCES ADMINISTRATOR Unavailable Kami Meneses MD Unavailable [phone] Reason for Visit * Reason Comments Medication Refill Encounter Details Date Type Department Care Team (Late st Contact Info) Description 03/25/2021 Refill [facility] - [place] [address] [place] [id number] Ingrid Mccloud Ashley, PAC [address] [place] [address] Medication Refill Social History Tobacco Use Types [...] Job 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 Date 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 difficile Rule-Out 04/10/2021 04/10/20212020 12:16 AM CDT documented as of this encounter Care Teams Image Archivist Relationship Specialty Start Date End Date Fuentes Orellana MD [address] [place] [address] PCP - General Family Medicine 07/06/15 Brent Dickinson DO [address] [facility] [place] [place] [address] Gastroenterology 06/27/16 Faviola Jiménez APRN, HUMAN RESOURCES ADMINISTRATOR [address] [place] [address] Nurse Practitioner Advanced Practice Nurse 07/22/16 Shawnee Mckinney MD [address] [facility] [address] [place] [address] Urologist Urology 06/07/19 Chicho Clayton MD [address] [facility] 7 [place] [address] Oncology 06/13/19 Lai Lambert APRN, HUMAN RESOURCES ADMINISTRATOR [address] [place] [address] Nurse Practitioner Advanced Practice Nurse 02/10/23 Kami Meneses MD #[address] [address] Consulting Physician Urology 06/16/23 Anette Bond MD #2 [place] [address] Consulting Physician Gastroenterology 12/25/22 Kay Gordon APRN, HODAN [address] [place] [address] Nurse Practitioner Advanced Practice Nurse 06/16/24 Kami Meneses MD #[address] [address] Consulting Physician Urology 08/19/24 documented as of this encounter
--- OUTSIDE RECORDS SUMMARY | 2025-01-03 00:33 | XMS_ITS | Encounter Summary ---
Author Organization [facility] Address [address] [place] [address] Phone Care Team Providers Care Air Conditioning Mechanic Name Role Phone Fuentes Orellana MD Primary Care Provider Brent Dickinson DO Unavailable [phone] Faviola Jiménez CLINICAL TRIAL SPECIALIST, ASSESSMENT SPECIALIST Unavailable Shawnee Mckinney MD Unavailable Chicho Clayton MD Unavailable Lai Lambert CLINICAL TRIAL SPECIALIST, ASSESSMENT SPECIALIST Unavailable Kami Meneses MD Unavailable [phone] Anette Bond MD Unavailable [phone] Kay Gordon APRN, ASSESSMENT SPECIALIST Unavailable Kami Meneses MD Unavailable [phone] Encounter Details Date Type Department Care Team (Late st Contact Info) Description 08/22/2024 Telephone [facility] [address] [place] [address] Kami Meneses MD [address], [address] [address] Social History Tobacco Use Types Packs/Day Years [...] Job 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 Date 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 LEAD * Telephone Encounter - Elidia Dill - 08/29/2024 8:20 AM CST Please see Dr. Otto message. LEAD * Telephone Encounter - Kami Meneses MD [...] sphincter. This needs to be done at [facility] by me. He will need a urine culture 14 days prior to surgery. Hibiclens shower the night before morning of surgery, vancomycin and gentamicin for antibiotics LEAD LEAD documented in this encounter Plan of Treatment Upcoming Encounters Date Type Department Care Team (Late st Contact Info) Description 01/10/2025 1:30 PM CDT [facility] [place] [address] Kami Meneses MD #2 [facility], [address] [address] documented as of this encounter Visit Diagnoses Not on filedocumented in this encounter Care Teams Air Conditioning Mechanic Relationship Specialty Start Date End Date Fuentes Orellana MD [address] [address] PCP - General Family Medicine 07/06/15 Brent Dikcinson DO [address] [place] [address] Gastroenterology 06/27/16 Faviola Jiménez APRN, ASSESSMENT SPECIALIST [address] [place] [address] Nurse Practitioner Advanced Practice Nurse 07/22/16 Shawnee Mckinney MD [address] [facility] [address] [place] [address] Urologist Urology 06/07/19 Chicho Clayton MD [address] [facility] [address] [place] [address] Oncology 06/13/19 Lai Lambert APRN, ASSESSMENT SPECIALIST [address] [place] [address] Nurse Practitioner Advanced Practice Nurse 02/10/23 Kami Meneses MD #2 [facility] [address] [place] [address] Consulting Physician Urology 06/16/23 Anette Bond MD #2 [facility] [place] [address] Consulting Physician Gastroenterology 12/25/22 Kay Gordon APRN, ASSESSMENT SPECIALIST #2 [place] [address] Nurse Practitioner Advanced Practice Nurse 06/16/24 Kami Meneses MD [address] [facility] [address] [place] [address] Consulting Physician Urology 08/19/24 documented as of this encounter
--- OUTSIDE RECORDS SUMMARY | 2025-01-03 00:34 | XMS_ITS | Encounter Summary ---
Author Organization [facility] Address [address] [facility] [place] [address] Phone Care Team Providers Care Director Money Name Role Phone Fuentes Orellana MD Primary Care Provider [phone] Brnet Dickinson DO Unavailable [phone] Faviola Jiménez BUILDING MAINTENANCE CUSTODIAN, STAPLE PROCESSING MACHINE OPERATOR Unavailable Shawnee Mckinney MD Unavailable Chicho Clayton MD Unavailable Lai Lambert BUILDING MAINTENANCE CUSTODIAN, STAPLE PROCESSING MACHINE OPERATOR Unavailable Kami Meneses MD Unavailable [phone] Anette Bond MD Unavailable [phone] Kay Gordon APRN, STAPLE PROCESSING MACHINE OPERATOR Unavailable Kami Meneses MD Unavailable [phone] Reason for Visit * Reason Comments Medication Refill Encounter Details Date Type Department Care Team (Late st Contact Info) Description 10/15/2021 Refill [facility] - Gastroenterology - [place] [address] [place] [id number] Ingrid Mccloud Ashley, PAC [address] [place] [address] Medication Refill Social History Tobacco Use Types [...] Ashlie Barrios RN - 10/16/2021 11:37 AM TINNING MACHINE SET UP OPERATOR Medication refilled and signed per [facility] chronic medication standing order for pediatric and adult patients. ING MACHINE SET UP OPERATOR documented in this encounter Plan of Treatment Upcoming Encounters Date Type Department Care Team (Late st Contact Info) Description 01/10/2025 1:30 PM CDT Office Visit [facility] [address] [place] [address] Kami Meneses MD [address] [address] documented as of this encounter Visit Diagnoses Not on filedocumented in this encounter Care Teams Director Money Relationship Specialty Start Date End Date Fuentes Orellana MD [address] [place] [address] PCP - General Family Medicine 07/06/15 Brent Dickinson DO [address] [place] [address] Gastroenterology 06/27/16 Faviola Jiménez APRN, STAPLE PROCESSING MACHINE OPERATOR [address] [place] [address] Nurse Practitioner Advanced Practice Nurse 07/22/16 Shawnee Mckinney MD [address] [facility] [address] [place] [address] Urologist Urology 06/07/19 Chicho Clayton MD [address] [facility] [address] [place] [address] Oncology 06/13/19 Lai Lambert APRN, STAPLE PROCESSING MACHINE OPERATOR [address] [place] [address] Nurse Practitioner Advanced Practice Nurse 02/10/23 Kami Meneses MD #[address] [address] Consulting Physician Urology 06/16/23 Anette Bond MD [address] [place] [address] Consulting Physician Gastroenterology 12/25/22 Kay Gordon APRN, STAPLE PROCESSING MACHINE OPERATOR [address] [place] [address] Nurse Practitioner Advanced Practice Nurse 06/16/24 Kami Meneses MD [address] [address] Consulting Physician Urology 08/19/24 documented as of this encounter
--- OUTSIDE RECORDS SUMMARY | 2025-01-03 00:34 | XMS_ITS | Clinical Summary ---
Author Organization [facility] Address [address] [place] [address] Phone Care Team Providers Care Surface Water Technician Name Role Phone Fuentes Orellana MD [...] series) 2024 Medical Devices Implanted Type Area Contract Administration Coordinator Device Identifier Shelf Expiration Date Model / Serial / Lot Ams 800 Urinary Control System(Penile Implant) Description:MRI conditional for 3T or less -danisha 01/04/19 Insurance MEDICARE PART A AND B [facility] [id number] Care Teams Surface Water Technician Relationship Specialty Start Date End Date Fuentes Orellana MD [address] [place] [address] PCP - General Family Practice 01/04/19
--- OUTSIDE RECORDS SUMMARY | 2025-01-03 00:34 | XMS_ITS | Clinical Summary ---
Author Organization Unknown Care Team Providers Care Proposal Rep Name Role Phone PRABHJOT ESCOBAR, KIRK Unavailable Mikey MARTIN RN, ABI Unavailable Unavailable LOIS MANAGER ASSET, RICARDA Unavailable Unavailable MARCE PT, YANET Unavailable Unavailable VICTOR MANUEL HOSE INSPECTOR, DAPHNE Unavailable Unavailpatricia PAGE OT, TAMIE Unavailable Unavailable Payers Payer Name Policy Type Policy Number Effective Date Expira tion Date MEDICARE.[place].[facility] [id number] Problems Condition Name Condition Details Condition Category [...] 08-31 00:00: 00 ATHSCL HEART DISEASE OF [place] CORONARY ARTERY W/O ANG PCTRS Active 08-31 [...] SPECIFIED FUNCTIONAL IMPLANTS Active 08-31 00:00: 00 CUSTODIAL (CURRENT) USE OF ASPIRIN Active 08-31 00:00: [...] 325 mg tablet 11-09 00:00: 00 Yes [id number] PAIN 1 tablet DAILY 1 tablet DAILY (route: oral) Med Classific ation: Analgesic , Anti-infl ammatory or Antipyret ic sulfamethox azole 800 mg-trimetho prim 160 mg tablet 11-12 00:00: 00 11-19 23:59 :00 No [id number] PROPHYLATIC 1 tablet 2 TIMES DAILY 1 tablet 2 TIMES DAILY (route: oral) Med Classific ation: Anti-Infe ctive Agents metoprolol tartrate 25 mg tablet 11-03 00:00: 00 Yes [id number] HIGH BLOOD PRESSURE 1 tablet 2 TIMES DAILY 1 tablet 2 TIMES DAILY (route: oral) Med Classific ation: Cardiovas cular Therapy Agents rosuvastati n 40 mg tablet 11-02 00:00: 00 Yes [id number] CHOLESTEROL 1 tablet DAILY 1 tablet DAILY (route: oral) Med Classific ation: Cardiovas cular Therapy Agents Brilinta 60 mg tablet 11-12 00:00: 00 Yes [id number] BLOOD THINNER 1 tablet 2 TIMES DAILY 1 tablet 2 TIMES DAILY (route: oral) Med Classific ation: Hematolog ical Agents acetaminoph en 500 mg tablet 11-12 00:00: 00 Yes [id number] NEEDED FOR PAIN 1-5/10 ON A 1-10 SCALE OR FEVER GREATER THAN 100.1 2 tablet EVERY 6 HOURS 2 tablet EVERY 6 HOURS (route: oral) Med Classific ation: Analgesic , Anti-infl ammatory or Antipyret ic alendronate 70 mg tablet 11-12 00:00: 00 Yes [id number] OSTEOARTHRI TIS 1 tablet WEEKLY 1 tablet WEEKLY (route: oral) Med Classific ation: Endocrine allopurinol 300 mg tablet 11-12 00:00: 00 Yes [id number] GOUT 1 tablet DAILY 1 tablet DAILY (route: oral) Med Classific ation: Gout and Hyperuric emia Therapy alprazolam 0.25 mg tablet 11-12 00:00: 00 Yes [id number] NEEDED FOR ANXIETY 1 tablet 3 TIMES DAILY 1 tablet 3 TIMES DAILY (route: oral) Med Classific ation: Central Nervous System Agents amlodipine 5 mg tablet 11-12 00:00: 00 Yes [id number] HIGH BLOOD PRESSURE 1 tablet DAILY 1 tablet DAILY (route: oral) Med Classific ation: Cardiovas cular Therapy Agents cephalexin 500 mg capsule 11-12 00:00: 00 11-18 23:59 :00 No [id number] PROPHYLATIC 1 capsule 2 TIMES DAILY 1 capsule 2 TIMES DAILY (route: oral) Med Classific ation: Anti-Infe ctive Agents chlorthalid one 25 mg tablet 11-12 00:00: 00 Yes [id number] HIGH BLOOD PRESSURE 1 tablet DAILY 1 tablet DAILY (route: oral) Med Classific ation: Cardiovas cular Therapy Agents Kerendia 10 mg tablet 11-12 00:00: 00 Yes [id number] KIDNEY DISEASE 1 tablet DAILY 1 tablet DAILY (route: oral) Med Classific ation: Cardiovas cular Therapy Agents pantoprazol e 40 mg tablet,ingrid yed release 11-12 00:00: 00 Yes [id number] GASTROESOPH AGEAL REFULX DISEASE 1 tablet DAILY 1 tablet DAILY (route: oral) Med Classific ation: Gastroint estinal Therapy Agents telmisartan 80 mg tablet 11-12 00:00: 00 Yes [id number] HIGH BLOOD PRESSURE 1 tablet DAILY 1 tablet DAILY (route: oral) Med Classific ation: Cardiovas cular Therapy Agents Tradjenta 5 mg tablet 11-12 00:00: 00 Yes [id number] DIABETES 1 tablet DAILY 1 tablet DAILY (route: oral) Med Classific ation: Endocrine nitroglycer in 0.3 mg sublingual tablet 11-12 00:00: 00 Yes [id number] NEEDED FOR CHEST PAIN 1 tablet EVERY 5 MINUTES TIMES 3 1 tablet EVERY 5 MINUTES TIMES 3 (route: sublingual ) Med Classific ation: Cardiovas cular Therapy Agents glimepiride 1 mg tablet 12-13 00:00: 00 Yes [id number] DIABETES 1 mg 2 TIMES DAILY 1 mg 2 TIMES DAILY (route: oral) Alternate Route: BY MOUTH. Med Classific ation: Endocrine Gvoke 1 mg/0.2 mL subcutaneou s solution 12-13 00:00: 00 Yes [id number] LOW BLOOD SUGAR Per instruc tions NEEDED Per instructio ns NEEDED (route: subcutaneo us) Alternate Route: SUBCUTANE OUS. Med Classific ation: Endocrine phenazopyri dine 200 mg tablet 12-21 00:00: 00 Yes [id number] URINARY PAIN 200 mg 3 TIMES DAILY [...] RICK MD RN TO OBSERVE AND ASSESS, MANAGER ASSET/MANUFACTURING ASSEMBLER TO OBSERVE FOR RISK FOR FALLS AND INSTRUCT IN FALL PREVENTION, HOME SAFETY, MEDICATION MANAGEMENT, INFECTION PREVENTION, AND NUTRITION MANAGEMENT. RN/MANAGER ASSET/MANUFACTURING ASSEMBLER NURSE MAY PERFORM O2 SATURATION LEVEL ON ADMISSION, EVERY VISIT AND PRN FOR SHORTNESS OF BREATH FOR RN TO ASSESS/MANAGER ASSET TO OBSERVE PATIENT, WITH NOTIFICATION TO THE PHYSICIAN IF SATURATION IS 90% IN THE ABSENCE OF MORE SPECIFIC PARAMETERS FROM THE PHYSICIAN. AGENCY MAY PERFORM A RESUMPTION OF CARE VISIT FOLLOWING ANY HOSPITAL ADMISSION. RN/MANAGER ASSET/MANUFACTURING ASSEMBLER TO MONITOR CO-MORBID CONDITIONS LISTED ON THE PLAN OF CARE AND ANY NEW CONDITIONS THAT PRESENT THEMSELVES DURING THIS EPISODE TO IDENTIFY CHANGES AND INTERVENE TO MINIMIZE COMPLICATIONS. [code = RN TO OBSERVE, ASSESS, EVALUATE, AND DEVELOP AN INDIVIDUALIZED PLAN OF CARE. AGENCY MAY ACCEPT ORDERS FROM CONSULTING PHYSICIANS KIRK RICK MD RN TO OBSERVE AND ASSESS, MANAGER ASSET/MANUFACTURING ASSEMBLER TO OBSERVE FOR RISK FOR FALLS AND INSTRUCT IN FALL PREVENTION, HOME SAFETY, MEDICATION MANAGEMENT, INFECTION PREVENTION, AND NUTRITION MANAGEMENT. RN/MANAGER ASSET/MANUFACTURING ASSEMBLER NURSE MAY PERFORM O2 SATURATION LEVEL ON ADMISSION, EVERY VISIT AND PRN FOR SHORTNESS OF BREATH FOR RN TO ASSESS/MANAGER ASSET TO OBSERVE PATIENT, WITH NOTIFICATION TO THE PHYSICIAN IF SATURATION IS 90% IN THE ABSENCE OF MORE SPECIFIC PARAMETERS FROM THE PHYSICIAN. AGENCY MAY PERFORM A RESUMPTION OF CARE VISIT FOLLOWING ANY HOSPITAL ADMISSION. RN/MANAGER ASSET/MANUFACTURING ASSEMBLER TO MONITOR CO-MORBID CONDITIONS LISTED ON THE [...] OT EVALUATION] Future Scheduled Test MEDICATION MANAGEMENT; RN/MANAGER ASSET/MANUFACTURING ASSEMBLER TO REVIEW MEDICATIONS FOR INTERACTIONS, EFFECTIVENESS OF DRUG THERAPY, AND SIGNS/SYMPTOMS OF ADVERSE REACTIONS. MAY INSTRUCT AND REINFORCE MEDICATION TEACHING RELATED TO THE USE OF MEDICATIONS, DOSAGE, FREQUENCY, PURPOSE, SIDE EFFECTS, AND TO REPORT COMPLICATIONS. [code = MEDICATION MANAGEMENT; RN/MANAGER ASSET/MANUFACTURING ASSEMBLER TO REVIEW MEDICATIONS FOR INTERACTIONS, EFFECTIVENESS OF DRUG THERAPY, AND SIGNS/SYMPTOMS OF ADVERSE REACTIONS. MAY INSTRUCT AND REINFORCE MEDICATION TEACHING RELATED TO THE USE OF MEDICATIONS, DOSAGE, FREQUENCY, PURPOSE, SIDE EFFECTS, AND TO REPORT COMPLICATIONS.] Future Scheduled Test ANTICOAGUL ATION MANAGEMENT; RN TO ASSESS AND TEACH, MANAGER ASSET/MANUFACTURING ASSEMBLER TO OBSERVE/TEACH/MONITOR EFFECTIVENESS OF ANTICOAGULATION THERAPY. RN/MANAGER ASSET/MANUFACTURING ASSEMBLER TO INSTRUCT ON SIGNS AND SYMPTOMS OF BLEEDING/ADVERSE REACTIONS TO REPORT TO PHYSICIAN. RN/MANAGER ASSET/MANUFACTURING ASSEMBLER TO PERFORM PT/INR VIA VENIPUNCTURE OR COAGUCHECK PRN PHYSICIAN ORDERSS RN/MANAGER ASSET/MANUFACTURING ASSEMBLER TO FAX/CALL IN RESULTS TO PHYSICIAN TIMELY [code = ANTICOAGULATION MANAGEMENT; RN TO ASSESS AND TEACH, MANAGER ASSET/MANUFACTURING ASSEMBLER TO OBSERVE/TEACH/MONITOR EFFECTIVENESS OF ANTICOAGULATION THERAPY. RN/MANAGER ASSET/MANUFACTURING ASSEMBLER TO INSTRUCT ON SIGNS AND SYMPTOMS OF BLEEDING/ADVERSE REACTIONS TO REPORT TO PHYSICIAN. RN/MANAGER ASSET/MANUFACTURING ASSEMBLER TO PERFORM PT/INR VIA VENIPUNCTURE OR COAGUCHECK PRN PHYSICIAN ORDERSS RN/MANAGER ASSET/MANUFACTURING ASSEMBLER TO FAX/CALL IN RESULTS TO PHYSICIAN TIMELY ] Future Scheduled Test FALL REDUC TION MANAGEMENT; RN TO ASSESS AND OBSERVE, MANAGER ASSET/MANUFACTURING ASSEMBLER TO OBSERVE FALL RISK FACTORS AND EDUCATE PATIENT/CAREGIVER ON STRATEGIES TO MINIMIZE THE RISK OF FALLING. [code = FALL REDUCTION MANAGEMENT; RN TO ASSESS AND OBSERVE, MANAGER ASSET/MANUFACTURING ASSEMBLER TO OBSERVE FALL RISK FACTORS AND EDUCATE PATIENT/CAREGIVER ON STRATEGIES TO MINIMIZE THE RISK OF FALLING.] Future Scheduled Test GENITOURIN KEZIA MANAGEMENT; RN TO ASSESS AND TEACH, MANAGER ASSET/MANUFACTURING ASSEMBLER TO OBSERVE AND TEACH RELATED TO ALTERED GENITOURINARY STATUS TO MINIMIZE COMPLICATIONS AND REDUCE HOSPITALIZATION. [code = GENITOURINARY MANAGEMENT; RN TO ASSESS AND TEACH, MANAGER ASSET/MANUFACTURING ASSEMBLER TO OBSERVE AND TEACH RELATED TO ALTERED GENITOURINARY STATUS TO MINIMIZE COMPLICATIONS AND REDUCE HOSPITALIZATION.] Future Scheduled Test URINARY IN CONTINENCE MANAGEMENT; RN TO ASSESS AND TEACH, MANAGER ASSET/LVNTO OBSERVE AND TEACH MANAGEMENT OF URINARY INCONTINENCE. TEACH/INSTRUCT ON PREVENTING INFECTION AND SKIN BREAKDOWN. RN/MANAGER ASSET/MANUFACTURING ASSEMBLER MAY INSTRUCT IN BLADDER TRAINING PROGRAM INDICATED. [code = URINARY INCONTINENCE MANAGEMENT; RN TO ASSESS AND TEACH, MANAGER ASSET/LVNTO OBSERVE AND TEACH MANAGEMENT OF URINARY INCONTINENCE. TEACH/INSTRUCT ON PREVENTING INFECTION AND SKIN BREAKDOWN. RN/MANAGER ASSET/MANUFACTURING ASSEMBLER MAY INSTRUCT IN BLADDER TRAINING PROGRAM INDICATED.] Future Scheduled Test DIABETES M ANAGEMENT; RN TO ASSESS AND TEACH, MANUFACTURING ASSEMBLER/MANAGER ASSET TO OBSERVE AND TEACH INSTRUCTIONS OF DIABETIC CARE TO INCLUDE: DIET DIABETIC SKIN CARE, SIGNS AND SYMPTOMS OF HYPO/HYPERGLYCEMIA, PROPER ADMINISTRATION OF DIABETIC MEDICATION. RN/MANUFACTURING ASSEMBLER/MANAGER ASSET TO INSTRUCT ON DIABETIC FOOT CARE AND MONITOR FOR SKIN LESIONS ON LOWER EXTREMITIES. BLOOD GLUCOSE TESTING DAILY RN TO ASSESS AND TEACH, MANUFACTURING ASSEMBLER/MANAGER ASSET TO OBSERVE AND TEACH PATIENT/CAREGIVER ABILITY TO PERFORM AND RECORD BLOOD GLUCOSE TESTING ORDERED AND TO REPORT ABNORMAL FINDINGS TO PHYSICIAN. RN/MANUFACTURING ASSEMBLER/MANAGER ASSET MAY PERFORM BLOOD GLUCOSE TEST NEEDED. RN/MANUFACTURING ASSEMBLER/MANAGER ASSET TO REPORT TO PHYSICIAN BLOOD GLUCOSE READINGS GREATER THAN 300 OR LESS THAN 70 RN/MANUFACTURING ASSEMBLER/MANAGER ASSET TO INSTRUCT PATIENT ON IMPORTANCE OF HGBA1C MONITORING, KIDNEY FUNCTION TEST, EYE AND FOOT EXAMS. [code = DIABETES MANAGEMENT; RN TO ASSESS AND TEACH, MANUFACTURING ASSEMBLER/MANAGER ASSET TO OBSERVE AND TEACH INSTRUCTIONS OF DIABETIC CARE TO INCLUDE: DIET DIABETIC SKIN CARE, SIGNS AND SYMPTOMS OF HYPO/HYPERGLYCEMIA, PROPER ADMINISTRATION OF DIABETIC MEDICATION. RN/MANUFACTURING ASSEMBLER/MANAGER ASSET TO INSTRUCT ON DIABETIC FOOT CARE AND MONITOR FOR SKIN LESIONS ON LOWER EXTREMITIES. BLOOD GLUCOSE TESTING DAILY RN TO ASSESS AND TEACH, MANUFACTURING ASSEMBLER/MANAGER ASSET TO OBSERVE AND TEACH PATIENT/CAREGIVER ABILITY TO PERFORM AND RECORD BLOOD GLUCOSE TESTING ORDERED AND TO REPORT ABNORMAL FINDINGS TO PHYSICIAN. RN/MANUFACTURING ASSEMBLER/MANAGER ASSET MAY PERFORM BLOOD GLUCOSE TEST NEEDED. RN/MANUFACTURING ASSEMBLER/MANAGER ASSET TO REPORT TO PHYSICIAN BLOOD GLUCOSE READINGS GREATER THAN 300 OR LESS THAN 70 RN/MANUFACTURING ASSEMBLER/MANAGER ASSET TO INSTRUCT PATIENT ON IMPORTANCE OF HGBA1C MONITORING, KIDNEY FUNCTION TEST, EYE AND FOOT EXAMS.] Future Scheduled Test PAIN MANAG EMENT; RN TO ASSESS AND TEACH, MANUFACTURING ASSEMBLER/MANAGER ASSET TO OBSERVE AND TEACH AND PROVIDE EDUCATION ON PAIN MANAGEMENT TECHNIQUES. [code = PAIN MANAGEMENT; RN TO ASSESS AND TEACH, MANUFACTURING ASSEMBLER/MANAGER ASSET TO OBSERVE AND TEACH AND PROVIDE EDUCATION ON PAIN MANAGEMENT TECHNIQUES.] Future Scheduled Test RN/MANAGER ASSET/MANUFACTURING ASSEMBLER TO PERFORM/TEACH INCISION CARE TO SUPRAPUBIC AND PERINEUM AREA: KEEP CLEAN AND DRY. INSPECT DAILY. NO LOTIONS OR OINTMENTS TO INCISIONS. MAY SHOWER AND PAT INCISIONS DRY. LEAVE ADHESIVE INTACT. [code = RN/MANAGER ASSET/MANUFACTURING ASSEMBLER TO PERFORM/TEACH INCISION CARE TO SUPRAPUBIC AND PERINEUM AREA: KEEP CLEAN AND DRY. INSPECT DAILY. NO LOTIONS OR OINTMENTS TO INCISIONS. MAY SHOWER AND PAT INCISIONS DRY. LEAVE ADHESIVE INTACT. ] Future Scheduled Test PRN VISITS ; NUMBER OF RN/MANAGER ASSET/MANUFACTURING ASSEMBLER VISITS: 1 RN/MANAGER ASSET/MANUFACTURING ASSEMBLER TO PERFORM: ASSESSMENT AND EDUCATION FOR THE FOLLOWING REASONS: INTEGUMENTARY/INCISION COMPLICATIONS [code = PRN VISITS; NUMBER OF RN/MANAGER ASSET/MANUFACTURING ASSEMBLER VISITS: 1 RN/MANAGER ASSET/MANUFACTURING ASSEMBLER TO PERFORM: ASSESSMENT AND EDUCATION FOR THE FOLLOWING REASONS: INTEGUMENTARY/INCISION COMPLICATIONS] Future Scheduled Test RISK FOR H OSPITALIZATION; RN TO ASSESS/TEACH, MANUFACTURING ASSEMBLER/MANAGER ASSET TO OBSERVE/TEACH PATIENT/CAREGIVER ON RISK FOR HOSPITALIZATION/EMERGENCY ROOM VISITS, TEACH SIGNS AND SYMPTOMS THAT PUT PATIENT AT RISK, WHEN TO NOTIFY NURSE/PHYSICIAN OF COMPLICATIONS/DECLINE, AND WHEN TO CALL 911. [code = RISK FOR HOSPITALIZATION; RN TO ASSESS/TEACH, MANUFACTURING ASSEMBLER/MANAGER ASSET TO OBSERVE/TEACH PATIENT/CAREGIVER ON RISK FOR HOSPITALIZATION/EMERGENCY ROOM VISITS, TEACH SIGNS AND SYMPTOMS THAT PUT PATIENT AT RISK, WHEN TO NOTIFY NURSE/PHYSICIAN OF COMPLICATIONS/DECLINE, AND WHEN TO CALL 911.] Future Scheduled Test CARDIOVASC ULAR SYSTEM; RN TO ASSESS/TEACH, MANAGER ASSET/MANUFACTURING ASSEMBLER TO OBSERVE/TEACH RELATED TO ALTERED CARDIOVASCULAR STATUS TO MINIMIZE COMPLICATIONS AND REDUCE HOSPITALIZATION. [code = CARDIOVASCULAR SYSTEM; RN TO ASSESS/TEACH, MANAGER ASSET/MANUFACTURING ASSEMBLER TO OBSERVE/TEACH RELATED TO ALTERED CARDIOVASCULAR STATUS TO MINIMIZE COMPLICATIONS AND REDUCE HOSPITALIZATION.] Future Scheduled Test HYPERTENSI ON MANAGEMENT; RN TO ASSESS AND TEACH, MANAGER ASSET/MANUFACTURING ASSEMBLER TO OBSERVE AND TEACH WARNING SIGNS AND SYMPTOMS TO AVOID HOSPITALIZATION. [code = HYPERTENSION MANAGEMENT; RN TO ASSESS AND TEACH, MANAGER ASSET/MANUFACTURING ASSEMBLER TO OBSERVE AND TEACH WARNING SIGNS AND SYMPTOMS TO AVOID HOSPITALIZATION.] Future Scheduled Test URINARY MO LECULAR TESTING PROTOCOL UP TO 2 PRN RN/MANAGER ASSET/MANUFACTURING ASSEMBLER VISITS MAY BE PERFORMED FOR S/S OF UTI. RN TO ASSESS, MANAGER ASSET/MANUFACTURING ASSEMBLER TO OBSERVE INITIATION OF UTI PROTOCOL. RN/MANUFACTURING ASSEMBLER/MANAGER ASSET TO INSTRUCT PATIENT AND/OR CAREGIVER ON S/S OF UTI TO REPORT TO RN/MANUFACTURING ASSEMBLER/MANAGER ASSET IF NEW OR WORSENING SYMPTOMS. DRINK PLENTY OF WATER THROUGHOUT THE DAY TO MAINTAIN HYDRATION (UNLESS CONTRAINDICATED.) URINATE WHEN THE URGE IS FELT, DO NOT WAIT. WASH GENITALS DAILY. WIPE FROM FRONT TO BACK AFTER HAVING A BOWEL MOVEMENT. RN/MANUFACTURING ASSEMBLER/MANAGER ASSET TO OBTAIN MOLECULAR URINE TESTING BY OPTION 1 OR OPTION 2 RN/MANUFACTURING ASSEMBLER/MANAGER ASSET TO OBTAIN U/A WITH REFLEX TO UTI PANEL (MOLECULAR) VIA CLEAN CATCH URINE AND IF UNABLE TO OBTAIN MAY PERFORM AN IN AND OUT CATH. IF PATIENT HAS INDWELLING CATHETER MAY OBTAIN FROM SAMPLING PORT. RN/MANUFACTURING ASSEMBLER/MANAGER ASSET TO OBTAIN UTI PANEL (MOLECULAR) VIA SWAB COLLECTION METHOD FROM ADULT BRIEF/DIAPER OR PAD IF PATIENT IS INCONTINENT. NOTIFY PROVIDER OF RESULTS AND OBTAIN FURTHER ORDERS. [code = URINARY MOLECULAR TESTING PROTOCOL UP TO 2 PRN RN/MANAGER ASSET/MANUFACTURING ASSEMBLER VISITS MAY BE PERFORMED FOR S/S OF UTI. RN TO ASSESS, MANAGER ASSET/MANUFACTURING ASSEMBLER TO OBSERVE INITIATION OF UTI PROTOCOL. RN/MANUFACTURING ASSEMBLER/MANAGER ASSET TO INSTRUCT PATIENT AND/OR CAREGIVER ON S/S OF UTI TO REPORT TO RN/MANUFACTURING ASSEMBLER/MANAGER ASSET IF NEW OR WORSENING SYMPTOMS. DRINK PLENTY OF WATER THROUGHOUT THE DAY TO MAINTAIN HYDRATION (UNLESS CONTRAINDICATED.) URINATE WHEN THE URGE IS FELT, DO NOT WAIT. WASH GENITALS DAILY. WIPE FROM FRONT TO BACK AFTER HAVING A BOWEL MOVEMENT. RN/MANUFACTURING ASSEMBLER/MANAGER ASSET TO OBTAIN MOLECULAR URINE TESTING BY OPTION 1 OR OPTION 2 RN/MANUFACTURING ASSEMBLER/MANAGER ASSET TO OBTAIN U/A WITH REFLEX TO UTI PANEL (MOLECULAR) VIA CLEAN CATCH URINE AND IF UNABLE TO OBTAIN MAY PERFORM AN IN AND OUT CATH. IF PATIENT HAS INDWELLING CATHETER MAY OBTAIN FROM SAMPLING PORT. RN/MANUFACTURING ASSEMBLER/MANAGER ASSET TO OBTAIN UTI PANEL (MOLECULAR) VIA SWAB [...] End Date/Time Encounter Type Admission Type Attending [facility] Care Department Encounter ID Discharge Date Discharge Status Discharge Condition Discharge Reason Percent Goals Met 2024-11-14 00:00:00 2025-01-12 00:00:00 Outpatient NEW ADMISSION ABI MARTIN [facility] [id number]
--- OUTSIDE RECORDS SUMMARY | 2025-01-03 00:34 | XMS_ITS | Clinical Summary ---
Author Organization [facility] [address] Address [address] [place] [address] Care Team Providers Care Meat Carver Name Role Phone Fuentes Orellana MD Primary Care Provider Itz Iyer MD Unavailable [phone] Shawnee Mckinney MD Unavailable [phone] Chicho Clayton MD Unavailable Maria Guadalupe Palacios RN Unavailable Unava ilable Lupillo Davenport MD Unavailable [phone] Danis Meza ASSOCIATE DIRECTOR Unavailable Antonette Owens NP Unavailable Aniceto Foley MD Unavailable Allergies No known active allergies Medications ACCU-CHEK [...] immediate release tabletIndicatio ns:Coronary artery disease involving [place] coronary artery of [place] heart without angina pectoris Take 1 tablet [...] (10/21/2022): Added automatically from request for surgery [id number] Assessment & Plan (10/30/2022 2:56 PM SODIUM METHYLATE OPERATOR): - OR 3/2 for planned R CEA - OU status, Q2h NV/VS monitoring - Bedrest today, OOB/PT POD #1 - SBP goal 100-160, nicardipine for elevated BP - Continue aspirin and statin - Plan to stager home medications and resume overnight Atherosclerosis of [place] ar teries of extremities with intermittent claudication, bilateral legs 06/03/2022 Melanoma 01/10/2021 Anxiety 01/10/2021 DM (diabetes mellitus) 01/10/2021 Assessment & Plan (10/30/2022 9:59 AM SODIUM METHYLATE OPERATOR): - A1c 7.6% 10/2022 - SSI while inpatient - CC diet when eating Elevated left ventricular end-diastolic pressure (LVEDP) 11/15/2019 Encounter for surgical after care following surgery of circulatory system 05/20/2019 Prostate cancer 09/10/2018 Assessment & Plan (10/27/2018 9:53 AM SODIUM METHYLATE OPERATOR): Follows with urology, has his PSA monitored it is increasing, but still WNL 1.4 Assessment & Plan (09/22/2018 11:35 AM SODIUM METHYLATE OPERATOR): Has close follow up with his oncologist. His PSA was slightly elevated on last check. Hyperlipidemia 09/21/2017 Assessment & Plan (06/30/2018 9:38 AM CDT): His last lipid panel was within acceptable range; he will continue on a high intensity statin. Assessment & Plan (09/21/2017 11:34 AM SODIUM METHYLATE OPERATOR): Continue Lipitor 40 mg daily. Essential hypertension 07/20/2017 Assessment & Plan (10/30/2022 2:57 PM SODIUM METHYLATE OPERATOR): - Tight BP goals post-procedure - Continue home medications as indicated by BP goals as above, staggering overnight for gentle BP control Assessment & Plan (10/27/2018 9:54 AM SODIUM METHYLATE OPERATOR): Hypertension is unchanged. Dietary sodium restriction. Blood pressure will be reassessed in 4 weeks. Assessment & Plan (09/22/2018 11:38 AM SODIUM METHYLATE OPERATOR): Hypertension remains elevated. He is increasing his [...] today Assessment & Plan (09/21/2017 11:33 AM SODIUM METHYLATE OPERATOR): Blood pressure is well controlled today. Last visit we added HCTZ 12.5 mg daily. Continue current medications Assessment & Plan (08/10/2017 11:26 AM SODIUM METHYLATE OPERATOR): Blood pressure is not controlled. Add hydrochlorothiazide 12.5 mg p.o. daily. He is compliant with medications but always add salt to food which I advised him not to do that. Assessment & Plan (07/20/2017 9:19 AM SODIUM METHYLATE OPERATOR): Blood pressure remains uncontrolled. We will order renal Doppler ultrasound to rule out renal artery stenosis given the fact that he has peripheral vascular disease and coronary artery disease. I will increase amlodipine from 5-10 mg p.o. daily. If that does not control the blood pressure we will add hydrochlorothiazide 12.5 mg p.o. Daily. Coronary artery disease invo lving [place] coronary artery of [place] heart without angina pectoris 07/20/2017 Assessment & Plan (10/30/2022 9:58 AM SODIUM METHYLATE OPERATOR): - Continue home medications as able - Maintained on Brilinta as an outpatient; held 1 week prior to OR - Will discuss with surgery team when to safely resume post-procedure Assessment & Plan (10/27/2018 9:59 AM SODIUM METHYLATE OPERATOR): Coronary artery disease is improving with lifestyle modifications. Continue current treatment regimen. Cardiac status will be reassessed in 3 months. No chest pain. Minimal SOB. Continue asa, statin, brilinta Assessment & Plan (09/22/2018 11:36 AM SODIUM METHYLATE OPERATOR): Coronary artery disease is unchanged. Regular aerobic [...] BB. Assessment & Plan (09/21/2017 11:33 AM SODIUM METHYLATE OPERATOR): Continue aspirin, Brilinta, Toprol XL and atorvastatin. Assessment & Plan (08/10/2017 11:27 AM SODIUM METHYLATE OPERATOR): Continue Brilinta and aspirin. Asymptomatic. Assessment & Plan (07/20/2017 9:19 AM SODIUM METHYLATE OPERATOR): Continue aspirin, Brilinta, Lipitor , metoprolol PVD (peripheral vascular disease) 07/20/2017 Assessment & Plan (10/27/2018 9:21 AM SODIUM METHYLATE OPERATOR): S/P bilateral ALVA angioplasty; right EIA angioplasty/stent 11/21/14. S/P aortoiliac angioplasty/stent 05/28/09. Continues on asa, statin and brilinta Assessment & Plan (09/21/2017 11:34 AM SODIUM METHYLATE OPERATOR): He follows up with vascular surgery at [facility] Assessment & Plan (08/10/2017 11:27 AM SODIUM METHYLATE OPERATOR): Renal ultrasound suggest more than 60% stenosis in the right renal artery and infrarenal stenosis 50-70%. He follows up with Dr. Foley from vascular surgery at [facility] Assessment & Plan (07/20/2017 9:20 AM SODIUM METHYLATE OPERATOR): Patient will follow up with Dr. Foley from vascular surgery. He does have some claudication when he walks. 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 Has stopped caffeine intake. Has [...] implant or graft 6 02/09/2019 Atherosclerosis of [place] artery of extremity 04/15/20 16 02/09/2019 Assessment & Plan (09/22/2018 11:26 AM SODIUM METHYLATE OPERATOR): 80% circumflex s/p RICHARD. 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 {plan; hypertension for POC:[id number]} Blood pressure will be reassessed {plan; follow-up 2 weeks/4weeks/3months:[id number]}. Increase amolodipine to 10 mg Continue all [...] Description 12/09/2024 1:00 PM CDT Office Visit [facility] Medical [facility] Cardiology [address] [place] [phone] Kay Ward NP Coronary artery disease of [place] artery of [place] heart with stable angina pectoris (Primary Dx); Orthostatic hypotension; LVH (left ventricular hypertrophy); PVD (peripheral vascular disease); Preoperative cardiovascular examination 11/10/2024 Telephone [facility] Home Care Services [address] [place] [address] Cheryl Bundy 11/09/2024 7:30 AM CDT - 11/09/2024 10:00 AM CDT Surgery [facility] Operating Room [address] [place] [phone] Kami Meneses MD Cystoscopy 11/09/2024 7:30 AM CDT Anesthesia Event [facility] Operating Room [address] [place] [phone] Lai Gregg DO [place], Justin Kyle, CRNA 11/09/2024 5:14 AM CDT - 11/12/2024 2:30 PM CDT Hospital Encounter [address] [phone] Kami Meneses MD Intrinsic urethral sphincter deficiency (Primary Dx) Discharge Disposition: Discharge to home, home health skilled care 10/26/2024 12:45 PM SODIUM METHYLATE OPERATOR Pre-Admission Testing [facility] Pre Anesthesia Testing [address] [place] [address] Stress incontinence 10/20/2024 10:30 AM SODIUM METHYLATE OPERATOR Office Visit [facility] Cardiology [address] [place] [address] Kay Ward NP Coronary artery disease of [place] artery of [place] heart with stable angina pectoris (Primary Dx); Preoperative cardiovascular examination; Orthostatic hypotension; LVH (left ventricular hypertrophy); PVD (peripheral vascular disease) 10/13/2024 Telephone [facility] Card[facility] [address] [place] [address] Mariangel Palmer MD cardiac clearance [...] INTRAOCULAR LENS IMPLANT Right ANGIO SELECTIVE CAROTID EDUCATIONAL 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 More than 4 times per year 11/11/2024 Do you belong to any clubs o r organizations such as adventist groups, unions, fraternal or athletic groups, or [...] any time in the past 12 m [facility], were you homeless or living [...] on file Legal Sex Male 12:32 AM SODIUM METHYLATE OPERATOR Gender Identity Not on file Sexual [...] history exists Medical Devices Implanted Type Area Mortar Maker Device Identifier Shelf Expiration Date Model / [...] Peripheral Patch Vascular Bovine Pericardium [id number]-[id number] - [id number] Implanted:Qty: 1 on 10/30/2022 by Aniceto Foley MD at [facility] Right: Carotid [facility] Sandra [id number] 07/09/2023 [id number] / / [id number] [employer] Sandra Ams 800 Kit Accessory Sterile Disposable Latex Free Urinary [id number] - [id number] Implanted:Qty: 1 on 11/09/2024 by Kami Meneses MD at [facility] N/A: Urethra [employer] Sandra [id number] 03/09/2029 [id number] / / [id number] [employer] Sandra Cuff Urethral Ams 800 Inhibizone 3.5cm [id number] - [id number] Implanted:Qty: 1 on 11/09/2024 by Kami Meneses MD at [facility] N/A: Urethra [employer] Sandra [id number] 02/22/2026 [id number] / / [id number] [employer] Sandra Ams 800 Pressure Balloon Sphincter 61-70cu Cm Implant Urological [id number] - [id number] Implanted:Qty: 1 on 11/09/2024 by Kami Meneses MD at [facility] N/A: Abdomen [employer] Sandra [id number] 03/20/2029 [id number] / / [id number] [employer] Sandra Ams 800 Control Pump Sphincter Implant Urological Inhibizone [id number] - [id number] Implanted:Qty: 1 on 11/09/2024 by Kami Meneses MD at [facility] N/A: Scrotum [employer] Sandra [id number] 02/15/2026 [id number] / / [id number] Procedures Procedure Name Priority Date/Time Associated Diagnosis [...] DEVICE Routine 11/09/2024 9 :20 AM CDT MS AN PROCEDURE PLACEHOLDER Routine 11/09/2024 7:54 AM CDT MS AN ELECTIVE ENDOTRACHEAL AIRWAY Routine 11/09/2024 7:54 AM CDT ARTIFICIAL URINARY SPHINCTER 11/09/2024 7:32 AM CDT Stress incontinence CYSTOSCOPY 11/09/2024 7:32 AM CDT Stress incontinence POCT GLUCOSE DEVICE Routine 11/09/2024 6 :43 AM CDT URINALYSIS, MICROSCOPIC ONLY Routine 10/26/2024 1:43 PM SODIUM METHYLATE OPERATOR Stress incontinence URINALYSIS AND REFLEX TO MICROSCOPIC AND CULTURE Routine 10/26/2024 1:43 PM SODIUM METHYLATE OPERATOR Stress incontinence LIPID PANEL Routine 03/22/2024 10:23 AM CDT Coronary artery disease involving [place] coronary artery of [place] heart without angina pectoris CTA ABDOMINAL AORTA AND BILATERAL ILIOFEMORAL RUNOFF Schedule Routine, Read Routine (OP Routine) 12/15/2023 1:56 PM CDT PVD (peripheral vascular disease) HEMOGLOBIN A1C Routine 09/22/2023 12:19 PM SODIUM METHYLATE OPERATOR Prostate cancer (HCC) from Last 3 Months or Most Recently Relevant to Health Maintenance Results * POCT glucose (11/12/2024 11:38 AM CDT) Pathologist [facility] Glucose, POC 151 70 - 199 mg/dL Comment: For Glucose values <35 mg/dl when Hematocrit is >60 mg/dl,the test may not accurately detect significant hypoglycemia,and testing in the Laboratory should be considered if clinically indicated. Blood 11/12/2024 11:3 8 AM CDT 11/12/2024 11:38 AM CDT Kami Gleason MD LAB POCT ORDERABLES - DEVICE F inal Result [facility] [address] [place] [address] * (ABNORMAL) eGFR (11/12/2024 8:15 AM CDT) Pathologist [facility] eGFR 59(L) >=60 mL/min/1. 73 m2 Comment: [...] NP LAB BLOOD ORDERABLES Fi nal Result [facility] [address] [place] [address] * (ABNORMAL) Basic metabolic panel (11/12/2024 8:15 AM CDT) Sodium 138 135 - 145 mmol/L Potassium, pl 4.2 3.3 - 4.9 mmol/L [facility] Chloride 106 97 - 110 mmol/L [facility] CO2 21(L) 22 - 32 mmol/L [facility] Anion gap 11 2 - 15 mmol/L [facility] BUN 28(H) 6 - 25 mg/dL [facility] Creatinine 1.26 0.80 - 1.30 mg/dL [facility] Glucose 136 70 - 199 mg/dL [facility] Comment: Interpretive Data Fasting glucose >/= 126 [...] 2022. Calcium 9.2 8.5 - 10.3 mg/dL [facility] Blood 11/12/2024 8:15 AM CDT 11/12/2024 9:17 AM CDT Kalina Ramirez Cliff ASSOCIATE DIRECTOR LAB BLOOD ORDERABLES Fi nal Result Performing Organization Address [facility] Co de Phone Number [facility] [address] [facility] [place] [address] * POCT glucose (11/12/2024 5:49 AM CDT) [...] DEVICE F inal Result Performing Organization Address [facility] de Phone Number [facility] [address] [facility] [place] [address] * (ABNORMAL) POCT glucose (11/11/2024 8:22 PM [...] DEVICE F inal Result Performing Organization Address City/[facility] Co de Phone Number [facility] [address] [place] [address] * POCT glucose (11/11/2024 5:14 PM CDT) Glucose, POC 127 70 - 199 mg/dL Comment: For Glucose values <35 mg/dl when Hematocrit is >60 mg/dl,the test may not accurately detect significant hypoglycemia,and testing in the Laboratory should be considered if clinically indicated. Blood 11/11/2024 5:14 PM CDT 11/11/2024 5:14 PM CDT [facility] LAB POCT ORDERABLES - DEVICE F inal Result Performing Organization Address [facility] Co de Phone Number [facility] [address] [facility] [place] [address] * POCT glucose (11/11/2024 11:29 AM CDT) Pathologist [facility] Glucose, POC 144 70 - 199 mg/dL Comment: For Glucose values <35 mg/dl when Hematocrit is >60 mg/dl,the test may not accurately detect significant hypoglycemia,and testing in the Laboratory should be considered if clinically indicated. Blood 11/11/2024 11:2 9 AM CDT 11/11/2024 11:29 AM CDT [facility] LAB POCT ORDERABLES - DEVICE F inal Result Performing Organization Address [facility] Co de Phone Number [facility] [address] [facility] [place] [address] * (ABNORMAL) eGFR (11/11/2024 7:48 AM CDT) Pathologist [facility] eGFR 48(L) >=60 mL/min/1. 73 m2 Comment: [...] MD LAB BLOOD ORDERABLES Final Res ult [facility] [address] [place] [address] * Differential, auto (11/11/2024 7:48 AM CDT) Neutrophil abs 5.4 1.5 - 6.5 K/cumm Imm gran abs 0.0 0.0 - 0.1 K/cumm [facility] Lymphocyte abs 1.8 0.8 - 3.3 K/cumm [facility] Monocyte abs 0.8 0.2 - 0.8 K/cumm [facility] Eosinophil abs 0.2 0.0 - 0.5 K/cumm [facility] Basophil abs 0.0 0.0 - 0.1 K/cumm [facility] Neutrophil pct 65.8 % [facility] Comment: Interpretive Data Percent cell count reference ranges are not reported, since discordance with absolute values may lead to misinterpretation of CBC data. Current Interpretive Data was last revised on 2017. Imm gran pct 0.5 % [facility] Comment: Interpretive Data Percent cell count reference ranges are not reported, since discordance with absolute values may lead to misinterpretation of CBC data. Current Interpretive Data was last revised on 2017. Lymphocyte pct 21.7 % [facility] Comment: Interpretive Data Percent cell count reference ranges are not reported, since discordance with absolute values may lead to misinterpretation of CBC data. Current Interpretive Data was last revised on 2017. Monocyte pct 10.0 % [facility] Comment: Interpretive Data Percent cell count reference ranges are not reported, since discordance with absolute values may lead to misinterpretation of CBC data. Current Interpretive Data was last revised on 2017. Eosinophil pct 1.8 % [facility] Comment: Interpretive Data Percent cell count reference ranges are not reported, since discordance with absolute values may lead to misinterpretation of CBC data. Current Interpretive Data was last revised on 2017. Basophil pct 0.2 % [facility] Comment: Interpretive Data Percent cell count reference ranges are not reported, since discordance with absolute values may lead to misinterpretation of CBC data. Current Interpretive Data was last revised on 2017. Blood 11/11/2024 7:48 AM CDT 11/11/2024 8:16 AM CDT us Kalina Coronado NP LAB BLOOD ORDERABLES nal Result [facility] [address] [place] [address] * (ABNORMAL) CBC with auto differential (11/11/2024 7:48 AM CDT) WBC 8.2 3.8 - 9.9 K/cumm Hgb 11.1(L) 13.0 - 17.5 g/dL [facility] Hct 34.8(L) 38.9 - 50.3 % [facility] Plt 175 150 - 400 K/cumm [facility] MPV 11.0 9.1 - 12.3 fL [facility] RBC 3.63(L) 4.30 - 5.80 M/cumm [facility] MCV 95.9 81.3 - 96.4 fL [facility] MCH 30.6 27.1 - 33.3 pg [facility] MCHC 31.9(L) 32.3 - 35.7 g/dL [facility] RDW CV 14.2 11.1 - 14.9 % [facility] RDW SD 50.2(H) 35.7 - 48.1 fL [facility] NRBC abs 0.00 0.00 - 0.01 K/cumm [facility] Blood 11/11/2024 7:48 AM CDT 11/11/2024 8:16 AM CDT us Kalina Coronado NP LAB BLOOD ORDERABLES Fi nal Result Performing Organization Address [facility]/ZIP Co de Phone Number [facility] [address] Department of [employer] [place], [place] [address] * Gentamicin level random (11/11/2024 7:48 AM CDT) Pathologist [facility] Gentamicin random 9.8 mcg/mL Comment: Interpretive Data No reference ranges have been established for random drug levels. Current Interpretive Data was last revised on 2020. Blood 11/11/2024 7:48 AM CDT 11/11/2024 8:16 AM CDT us Kami Gleason MD LAB BLOOD ORDERABLES Final Res ult Performing Organization Address [facility] Co de Phone Number [facility] [address] [place] [address] * (ABNORMAL) Basic metabolic panel (11/11/2024 7:48 AM CDT) Pathologist [facility] Sodium 134(L) 135 - 145 mmol/L Potassium, pl 4.0 3.3 - 4.9 mmol/L [facility] Chloride 101 97 - 110 mmol/L [facility] CO2 24 22 - 32 mmol/L [facility] Anion gap 9 2 - 15 mmol/L [facility] BUN 35(H) 6 - 25 mg/dL [facility] Creatinine 1.50(H) 0.80 - 1.30 mg/dL [facility] Glucose 136 70 - 199 mg/dL [facility] Comment: Interpretive Data Fasting glucose >/= 126 [...] Calcium 9.4 8.5 - 10.3 mg/dL [facility] Blood 11/11/2024 7:48 AM CDT 11/11/2024 8:16 AM CDT Kami Gleason MD LAB BLOOD ORDERABLES Final Res ult Performing Organization Address City/[facility]/ZIP Co de Phone Number [facility] [address] [place] [address] * POCT glucose (11/11/2024 6:41 AM CDT) Glucose, POC 155 70 - 199 mg/dL Comment: For Glucose values <35 mg/dl when Hematocrit is >60 mg/dl,the test may not accurately detect significant hypoglycemia,and testing in the Laboratory should be considered if clinically indicated. Blood 11/11/2024 6:41 AM CDT 11/11/2024 6:41 AM CDT Kami Gleason MD LAB POCT ORDERABLES - DEVICE F inal Result [facility] [address] [employer] [place], [place] [id number] * POCT glucose (11/10/2024 8:11 PM CDT) Glucose, POC 179 70 - 199 mg/dL Comment: For Glucose values <35 mg/dl when Hematocrit is >60 mg/dl,the test may not accurately detect significant hypoglycemia,and testing in the Laboratory should be considered if clinically indicated. Blood 11/10/2024 8:11 PM CDT 11/10/2024 8:11 PM CDT Result [facility] LAB POCT ORDERABLES - DEVICE F inal Result Performing Organization Address [facility] Co de Phone Number [facility] [address] [facility] [place] [address] * POCT glucose (11/10/2024 4:46 PM CDT) Glucose, POC 134 70 - 199 mg/dL Comment: For Glucose values <35 mg/dl when Hematocrit is >60 mg/dl,the test may not accurately detect significant hypoglycemia,and testing in the Laboratory should be considered if clinically indicated. Blood 11/10/2024 4:46 PM CDT 11/10/2024 4:46 PM CDT Result [facility] LAB POCT ORDERABLES - DEVICE F inal Result Performing Organization Address [facility] de Phone Number [facility] [address] [facility] [place] [address] * POCT glucose (11/10/2024 12:00 PM CDT) Glucose, POC 98 70 - 199 mg/dL Comment: For Glucose values <35 mg/dl when Hematocrit is >60 mg/dl,the test may not accurately detect significant hypoglycemia,and testing in the Laboratory should be considered if clinically indicated. Blood 11/10/2024 12:0 0 PM CDT 11/10/2024 12:00 PM CDT Result [facility] LAB POCT ORDERABLES - DEVICE F inal Result Performing Organization Address [facility] Co de Phone Number [facility] [address] [facility] [place] [address] * POCT glucose (11/10/2024 7:38 AM CDT) Glucose, POC 112 70 - 199 mg/dL Comment: For Glucose values <35 mg/dl when Hematocrit is >60 mg/dl,the test may not accurately detect significant hypoglycemia,and testing in the Laboratory should be considered if clinically indicated. Blood 11/10/2024 7:38 AM CDT 11/10/2024 7:38 AM CDT ChristianaCareshahrzad Gleason MD LAB POCT ORDERABLES - DEVICE F inal Result Performing Organization Address [facility] Co de Phone Number [facility] [address] [facility] [employer] [place], [place] [id number] * (ABNORMAL) POCT glucose (11/09/2024 8:32 PM CDT) Glucose, POC 222(H) 70 - 199 mg/dL Comment: For Glucose values <35 mg/dl when Hematocrit is >60 mg/dl,the test may not accurately detect significant hypoglycemia,and testing in the Laboratory should be considered if clinically indicated. Blood 11/09/2024 8:32 PM CDT 11/09/2024 8:32 PM CDT ChristianaCareshahrzad Gleason MD LAB POCT ORDERABLES - DEVICE F inal Result Performing Organization Address [facility] Co de Phone Number [facility] [address] [facility] [place] [address] * POCT glucose (11/09/2024 5:35 PM CDT) Glucose, POC 171 70 - 199 mg/dL Comment: For Glucose values <35 mg/dl when Hematocrit is >60 mg/dl,the test may not accurately detect significant hypoglycemia,and testing in the Laboratory should be considered if clinically indicated. Blood 11/09/2024 5:35 PM CDT 11/09/2024 5:35 PM CDT [facility] LAB POCT ORDERABLES - DEVICE F inal Result Performing Organization Address [facility] Co de Phone Number [facility] [address] [place] [address] * (ABNORMAL) eGFR (11/09/2024 4:58 PM CDT) [...] ORDERABLES Final Res ult Performing Organization Address [facility]/ZIP Co de Phone Number [facility] [address] Department [place] [place], [place] [id number] * (ABNORMAL) Basic metabolic panel (11/09/2024 4:58 PM CDT) Sodium 134(L) 135 - 145 mmol/L Potassium, pl 4.6 3.3 - 4.9 mmol/L [facility] Chloride 101 97 - 110 mmol/L [facility] CO2 21(L) 22 - 32 mmol/L [facility] Anion gap 12 2 - 15 mmol/L [facility] BUN 29(H) 6 - 25 mg/dL [facility] Creatinine 1.39(H) 0.80 - 1.30 mg/dL [facility] Glucose 203(H) 70 - 199 mg/dL [facility] Comment: Interpretive Data Fasting glucose >/= 126 [...] 2022. Calcium 10.0 8.5 - 10.3 mg/dL [facility] Blood 11/09/2024 4:58 PM CDT 11/09/2024 5:50 PM CDT Kami Gleason MD LAB BLOOD ORDERABLES Final Res ult Performing Organization Address City/[facility]/ZIP Co de Phone Number [facility] [address] [place] [address] * POCT glucose (11/09/2024 10:08 AM CDT) [facility] Signature Glucose, POC 167 70 - 199 mg/dL Comment: For Glucose values <35 mg/dl when Hematocrit is >60 mg/dl,the test may not accurately detect significant hypoglycemia,and testing in the Laboratory should be considered if clinically indicated. Blood 11/09/2024 10:0 8 AM CDT 11/09/2024 10:08 AM CDT Kami Gleason MD LAB POCT ORDERABLES - DEVICE F inal Result Performing Organization Address City/[facility]/ZIP Co de Phone Number [facility] [address] [place] [address] * POCT glucose (11/09/2024 9:20 AM CDT) [...] ORDERABLES - DEVICE F inal Result [facility] [address] [place] [address] * MS AN ELECTIVE ENDOTRACHEAL AIRWAY, MS AN PROCEDURE PLACEHOLDER (11/09/2024 7:54 AM CDT) Narrative Jorge Sun CRNA - 11/09/2024 7:54 AM CDT Jorge Sun CRNA 11/09/2024 7:55 AM Airway Patient location: OR Urgency: elective Indications for airway management: anesthesia and airway protection Difficult airway: no Staff: Supervising provider: Lai Gregg DO Placed by: REGISTERED NURSING PROFESSOR: Jorge Sun CRNA Emergent airway documentation: Risks [...] POCT ORDERABLES - DEVICE F inal Result [facility] [address] [place] [address] * (ABNORMAL) Urinalysis reflex to microscopic and culture Urine, bladder (10/26/2024 1:43 PM SODIUM METHYLATE OPERATOR) Color, ur Straw Yellow Clarity, ur Clear Clear [facility] Specific gravity, ur 1.010 1.003 - 1.030 [facility] pH, urine 6.5 [facility] Comment: Interpretive Data U rine pH is affected by diet, medications, systemic acid-base disturbances, and renal tubular function. pH may affect urinary stone formation. For example, urine pH below 6.0 may help reduce the tendency for calcium phosphate stones and pH greater than 6.0 may reduce the tendency for uric acid stone formation. Source: [facility] Current Interpretive Data was last revised on 2017 Protein, ur ql Trace Negative [facility] Glucose, ur ql Negative Negative [facility] Ketones, ur Negative Negative [facility] Bilirubin, ur Negative Negative [facility] Blood, ur 1+(A) Negative [facility] Urobilinogen, ur <2.0 <2.0 mg/dL [facility] Nitrite, ur Negative Negative [facility] Leukocyte esterase, ur Negative Negative [facility] UA reflex comment Reflex to microscopic UA will be performed. [facility] Urine, bladder 10/26/2024 1: 43 PM SODIUM METHYLATE OPERATOR 10/26/2024 2:03 PM SODIUM METHYLATE OPERATOR Kami Gleason MD LAB MICROBIOLOGY - GENERAL ORD ERABLES Final Result Performing Organization Address [facility] Co de Phone Number [facility] [address] [place] [address] * Urinalysis, microscopic only (10/26/2024 1:43 PM SODIUM METHYLATE OPERATOR) WBC, ur 0-5 0 - 5 /HPF RBC, ur 0-2 0 - 2 /HPF [facility] Culture Reflex Comment Reflex conditions for urine culture (WBC >10) not met. [facility] Urine, bladder 10/26/2024 1: 43 PM SODIUM METHYLATE OPERATOR 10/26/2024 2:03 PM SODIUM METHYLATE OPERATOR Kami Gleason MD LAB URINE ORDERABLES Final Res ult Performing Organization Address [facility] Co de Phone Number [facility] [address] [place] [address] * (ABNORMAL) Lipid panel (03/22/2024 10:23 AM [...] on 2018. Triglycerides 115 <=149 mg/dL [facility] Comment: Interpretive Data Ages < [...] revised on 2018. HDL 37(L) >=40 mg/dL [facility] Comment: Interpretive Data Ages < [...] on 2018. LDL, calculated 67 <=129 mg/dL [facility] Comment: Interpretive Data Ages < [...] revised on 2018. Non-HDL Cholesterol 90 mg/dL [facility] Comment: Interpretive Data Ages < [...] last revised on 2018. Chol/HDL ratio 3 [facility] Blood 03/22/2024 10:2 3 AM CDT 03/22/2024 10:52 AM CDT us Antonette Rater ASSOCIATE DIRECTOR LAB BLOOD ORDERABLES Final Resul t [facility] [place] [address] * CTA Abdominal Aorta And Bilateral Iliofemoral [...] * (ABNORMAL) Hemoglobin A1c (09/22/2023 12:19 PM SODIUM METHYLATE OPERATOR) Hgb A1C 6.0(H) 4.0 - 5.6 % [facility] Estimated Average Glucose 126 mg/dL [facility] Comment: The ADA recommends reporting an estimated Average Glucose (eAG) with all Hemoglobin A1c results using the equation derived from a study of 507 normal and diabetic adults. Minority populations were underrepresented and children were not included. (Diabetes Care 2020; 43(S1): S66-S76). The eAG is not equivalent to a fasting glucose. Blood 09/22/2023 12:1 9 PM SODIUM METHYLATE OPERATOR 09/22/2023 12:45 PM SODIUM METHYLATE OPERATOR Chicho Clayton MD LAB BLOOD ORDERABLES Final Resul t [facility] [place] [address] from Last 3 Months or Most Recently Relevant to Health Maintenance Insurance [facility] [employer] MEDICARE [facility] [employer] [facility] [employer] [facility] Advance Directives For more information, please contact: [phone] * Full Code (Latest Code Status on File) Date Activated Date Inactivated Comments 11/09/2024 2:36 PM 11/12/2024 6:36 PM * Full Code Date Activated Date Inactivated Comments 10/30/2022 5:29 PM 10/31/2022 7:15 PM * Full Code Date Activated Date Inactivated Comments 08/16/2019 9:46 AM 08/16/2019 5:30 PM Care Teams Meat Carver Relationship Specialty Start Date End Date Fuentes Orellana MD PCP - General 11/28/16 Itz Iyer MD [address] [place] [address] Consulting Physician Urology 05/31/18 Shawnee Mckinney MD [address] [facility] [address] [place] [address] Referring Physician Urology 06/03/18 Chicho Clayton MD [address] [facility] [address] [place] [address] Medical Oncologist/Hematologis t Medical Oncology 06/07/18 Maria Guadalupe Palacios, RN Registered Nurse 06/10/18 Lupillo Davenport MD Referring Physician Radiation Oncology 06/16/18 Danis Meza NP [address] [facility] [address] [place] [address] Nurse Practitioner Urology 10/06/22 Antonette Owens NP [address] [facility] [address] [place] [address] Nurse Practitioner Cardiovascular Disease 10/06/22 Aniceto Foley MD [address] [place] [address] Surgeon Vascular Surgery 10/31/22
--- OUTSIDE RECORDS SUMMARY | 2025-01-03 00:34 | XMS_ITS | Encounter Summary ---
Author Organization [facility] Address [address] [place] [address] Phone Care Team Providers Care Loft Worker Apprentice Name Role Phone Fuentes Orellana MD Primary Care Provider [phone] Itz Iyer MD Unavailable [phone] Lupillo Davenport MD Unavailable [phone] Lupillo Davenport MD Unavailable [phone] Shawnee Mckinney MD Unavailable [phone] Chicho Clayton MD Unavailable Newton Weeks MD Unavailable [phone] Maria Guadalupe Palacios RN Unavailable Unava ilable Lupillo Davenport MD Unavailable [phone] Itz Iyer MD Unavailable [phone] Itz Iyer MD Unavailable [phone] Itz Iyer MD Unavailable [phone] Itz Iyer MD Unavailable [phone] Itz Iyer MD Unavailable [phone] Itz Iyer MD Unavailable [phone] Danis Meza DIRECTOR OF FOOD AND BEVERAGE SERVICES Unavailable Antonette Owens DIRECTOR OF FOOD AND BEVERAGE SERVICES Unavailable Aniceto Foley MD Unavailable [phone] Encounter Details Date Type Department Care [...] on file Legal Sex Male 12:32 AM LOFTSMAN/WOMAN Gender Identity Not on file Sexual Orientation [...] on filedocumented in this encounter Care Teams Loft Worker Apprentice Relationship Specialty Start Date End Date Fuentes Orellana MD PCP - General 11/28/16 Itz Iyer MD [address] [facility] [address] [place] [address] Consulting Physician Urology 05/31/18 Lupillo Davenport MD [address] [place] [address] Referring Physician Radiation Oncology 05/31/18 Lupillo Davenport MD [address] [place] [address] Referring Physician Radiation Oncology 05/31/18 Shawnee Mckinney MD [address] [facility] [address] [place] [address] Referring Physician Urology 06/03/18 Chicho Clayton MD [address] [facility] [address] [place] [address] Medical Oncologist/Hematologis t Medical Oncology 06/07/18 Newton Weeks MD [address] [facility] [address] [place] [address] Referring Physician Radiation Oncology 06/07/18 Maria Guadalupe Palacios, RN Registered Nurse 06/10/18 Lupillo Davenport MD [address] [place] [address] [place] [address] Referring Physician Radiation Oncology 06/16/18 Itz Iyer MD [address] [place] [address] Consulting Physician Urology 06/17/18 06/17/18 Itz Iyer MD [address] [address] Consulting Physician Urology 06/18/18 06/18/18 Itz Iyer MD [address] [address] Consulting Physician Urology 06/18/18 06/18/18 Itz Iyer MD [address] [place] [address] Consulting Physician Urology 06/22/18 06/22/18 Itz Iyer MD [address] [place] [address] Consulting Physician Urology 07/01/18 07/01/18 Itz Iyer MD [address] [place] [address] Consulting Physician Urology 07/06/18 07/06/18 Danis Meza NP [address] [place] [address] Nurse Practitioner Urology 10/06/22 Antonette Owens NP [address] [place] [address] Nurse Practitioner Cardiovascular Disease 10/06/22 Aniceto Foley MD [address] [place] [address] Surgeon Vascular Surgery 10/31/22 documented as of this encounter
--- OUTSIDE RECORDS SUMMARY | 2025-01-03 00:34 | XMS_ITS | Encounter Summary ---
Author Organization [facility] Address [address] [facility] [place] [address] Phone Care Team Providers Care Assistant Infant Toddler Teacher Name Role Phone Fuentes Orellana MD Primary Care Provider [phone] Brent Dickinson DO Unavailable [phone] Faviola Jiménez CAUSTICISER, VULCANIZER RUBBER PLATE Unavailable Shawnee Mckinney MD Unavailable Chicho Clayton MD Unavailable Lai Lambert CAUSTICISER, VULCANIZER RUBBER PLATE Unavailable Kami Meneses MD Unavailable [phone] Anette Bond MD Unavailable [phone] Kay Gordon APRN, VULCANIZER RUBBER PLATE Unavailable Kami Meneses MD Unavailable [phone] Reason for Visit * Reason Comments Medication Refill Encounter Details Date Type Department Care Team (Late st Contact Info) Description 11/12/2022 Refill [facility] - Gastroenterology - [place] [address] [place] [id number] Ingrid Mccloud Ashley, PAC [address] [place] [address] Medication Refill Social History Tobacco Use Types [...] 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 on file Not on file Not [...] [facility] [address] [place] [id number] Kami Meneses MD [address], [address] [address] documented as of this encounter Visit Diagnoses Not on filedocumented in this encounter Care Teams Assistant Infant Toddler Teacher Relationship Specialty Start Date End Date Fuentes Orellana MD [address] [facility] [place] [address] PCP - General Family Medicine 07/06/15 Brent Dickinson DO [address] [facility] [place] [address] Gastroenterology 06/27/16 Faviola Jiménez, CAUSTICISER, VULCANIZER RUBBER PLATE [address] [place] [address] Nurse Practitioner Advanced Practice Nurse 07/22/16 Shawnee Mckinney MD [address] [facility] [address] [place] [address] Urologist Urology 06/07/19 Chicho Clayton MD [address] [facility] [address] [place] [address] Oncology 06/13/19 Lai Lambert APRN, VULCANIZER RUBBER PLATE [address] [place] [address] Nurse Practitioner Advanced Practice Nurse 02/10/23 Kami Meneses MD [address] [address] Consulting Physician Urology 06/16/23 Anette Bond MD [address] [place] [address] Consulting Physician Gastroenterology 12/25/22 Kay Gordon APRN, VULCANIZER RUBBER PLATE [address] [place] [address] Nurse Practitioner Advanced Practice Nurse 06/16/24 Kami Meneses MD [address] [facility], [address] [address] Consulting Physician Urology 08/19/24 documented as of this encounter
--- OUTSIDE RECORDS SUMMARY | 2025-01-03 00:34 | XMS_ITS | Encounter Summary ---
Author Organization [facility] Address [address] [facility] [address] [place] [address] Care Team Providers Care Nuclear Medicine Technologist Name Role Phone Fuentes Orellana MD Primary Care Provider [phone] Fuentes Orellana MD Primary Care Provider [phone] Itz Iyer MD Unavailable [phone] Lupillo Davenport MD Unavailable [phone] Lupillo Davneport MD Unavailable [phone] Shawnee Mckinney MD Unavailable [phone] Chicho Clayton MD Unavailable Newton Weeks MD Unavailable [phone] Maria Guadalupe Palacios RN Unavailable Unava ilable Lupillo Davenport MD Unavailable [phone] Itz Iyer MD Unavailable [phone] Itz Iyer MD Unavailable [phone] Itz Iyer MD Unavailable [phone] Itz Iyer MD Unavailable [phone] Itz Iyer MD Unavailable [phone] Itz Iyer MD Unavailable [phone] Danis Meza TRANSPORTATION REFRIGERATION TECHNICIAN Unavailable [phone] Rater, Antonette TRANSPORTATION REFRIGERATION TECHNICIAN Unavailable Aniceto Foley MD Unavailable [phone] Encounter Details Date Type Department Care Team (Late st Contact Info) Description 11/18/2016 Orders Only [facility] Provider, MD Katie [facility] [place] [address] Social History Tobacco Use Types Packs/Day Years Used Date Smoking Tobacco: Never Assessed Sex and Gender Information Value Date Recorded Sex Assigned at Not on file Legal Sex Male 12:32 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 Gender Identity Not on file Sexual Orientation [...] on filedocumented in this encounter Care Teams Nuclear Medicine Technologist Relationship Specialty Start Date End Date Fuentes Orellana MD PCP - General 11/28/16 Fuentes Orellana MD PCP - General 07/14/07 11/27/16 Itz Iyer MD [address] [facility] [address] [place] [id number] Consulting Physician Urology 05/31/18 Lupillo Davenport MD [address] [place] [address] Referring Physician Radiation Oncology 05/31/18 Lupillo Davenport MD [address] [place] [address] Referring Physician Radiation Oncology 05/31/18 Shawnee Mckinney MD [address] [facility] [address] [place] [address] Referring Physician Urology 06/03/18 Chicho Clayton MD [address] [facility] [address] [place] [address] Medical Oncologist/Hematologis t Medical Oncology 06/07/18 Newton Weeks MD [address] [facility] [address] [place] [address] Referring Physician Radiation Oncology 06/07/18 Maria Guadalupe Palacios, RN Registered Nurse 06/10/18 Lupillo Davenport MD [address] [place] [address] Referring Physician Radiation Oncology 06/16/18 Itz Iyer MD [address] [address] Consulting Physician Urology 06/17/18 06/17/18 Itz Iyer MD [address] [address] Consulting Physician Urology 06/18/18 06/18/18 Itz Iyer MD [address] [place] [address] Consulting Physician Urology 06/18/18 06/18/18 Itz Iyer MD [address] [place] [address] Consulting Physician Urology 06/22/18 06/22/18 Itz Iyer MD [address] [place] [address] Consulting Physician Urology 07/01/18 07/01/18 Itz Iyer MD [address] [place] [address] Consulting Physician Urology 07/06/18 07/06/18 Danis Meza NP [address] [place] [address] Nurse Practitioner Urology 10/06/22 Antonette Owens NP [address] [place] [address] Nurse Practitioner Cardiovascular Disease 10/06/22 Aniceto Foley MD [address] [place] [address] Surgeon Vascular Surgery 10/31/22 documented as of this encounter
[2025-01-03] MEDS: ACETAMINOPHEN 500 MG TABLET 1000 MG PO (11:10)
[2025-01-03] MEDS: KETOROLAC 15 MG/ML VIAL (*BKC) IV PUSH (11:15)
[2025-01-03] MEDS: LACTATED RINGERS 1,000 ML 30 ML IV CONT ×2 (11:15→15:50)
[2025-01-03 11:47] LABS: Glucose Point of Care 118 mg/dl (65-105)
--- NOTE | 2025-01-03 13:32 | WPDHPUPDATE1 ---
History and Physical Update Update Date/Time: 01/03/25 13:32 History and Physical has been reviewed, including an updated exam of the patient. There are NO changes in the patient's condition. After reviewing his CT I discussed with the patient over the phone that an open repair will probably be safer than a laparoscopic due to his bladder implants. The procedure will be open umbilical hernia repair with mesh. That is the only change to the plan. Risks, benefits, and alternatives have been discussed and questions answered. Patient agrees to proceed with procedure.
--- NOTE | 2025-01-03 13:33 | P.PNAN_ITS ---
Anes - Initial Pre Proc Eval Procedure: Operation Date: 01/03/25 12:30 Proposed Procedures p Open Umbilical Hernia Repair with Mesh - Armen Nunez DO Date/Time: 01/03/25 13:33 Surgeon: Armen Nunez DO Pre Op Diagnosis: umbilical hernia Patient Data Age: 74 Gender: M Height: 1.63 m Weight: 75 kg Last Vital Signs Temp 97.7 F 01/03/25 10:40 Pulse 70 01/03/25 10:40 Resp 16 01/03/25 10:40 BP 137/50 L 01/03/25 10:40 Pulse Ox 99 01/03/25 10:40 O2 Del Method Room Air 01/03/25 10:40 Allergies Allergy/AdvReac Type Severity Reaction Status Date / Time dapagliflozin (From [facility]) AdvReac Severe Hallucinati Verified 01/03/25 11:24 ng metformin AdvReac Severe Diarrhea Verified 01/03/25 11:24 semaglutide (From [facility]) AdvReac Intermediate Confusion Verified 01/03/25 11:24 Home Medications ?Medication ?Instructions ?Recorded ?Confirmed ?Type nitroglycerin 0.3 mg sublingual 0.3 mg sublingual PRN PRN Chest 12/05/21 12/16/24 History tablet Pain ticagrelor 60 mg tablet (Brilinta) 60 mg PO BID 12/05/21 01/03/25 History aspirin 81 mg tablet,delayed 81 mg PO DAILY 12/06/21 12/16/24 History release (Adult Aspirin Regimen) chlorthalidone 25 mg tablet 25 mg PO DAILY 04/16/23 01/03/25 History rosuvastatin 40 mg tablet 40 mg PO DAILY 10/13/23 01/03/25 History finerenone 10 mg tablet (Kerendia) 10 mg PO DAILY #30 tabs 05/10/24 01/03/25 Rx telmisartan 80 mg tablet 80 mg PO DAILY 06/08/24 01/03/25 History alendronate 70 mg tablet (Fosamax) 70 mg PO WEEKLY #4 tabs 08/25/24 12/16/24 Rx amlodipine 5 mg tablet 5 mg PO DAILY 09/29/24 01/03/25 History alprazolam 0.5 mg tablet 0.5 mg PO TID PRN Anxiety #20 tabs 10/10/24 01/03/25 Rx blood sugar diagnostic (Accu-Chek #400 ea 12/06/24 12/16/24 Rx Aaliyah Plus test strips) glimepiride 1 mg tablet 1 mg PO BID #180 tabs 12/06/24 01/03/25 Rx lancets 33 gauge (E-Z Ject Lancets) #400 ea 12/06/24 12/16/24 Rx linagliptin 5 mg tablet 5 mg PO QAM #90 tabs 12/06/24 01/03/25 Rx glucagon 1 mg/0.2 mL subcutaneous 1 mg (0.2 mL) subcut ONCE #0.4 mL 12/07/24 12/16/24 Rx auto-injector (Gvoke HypoPen 2-Pack) allopurinol 300 mg tablet 300 mg PO DAILY #90 tabs 12/15/24 01/03/25 Rx metoprolol tartrate 25 mg tablet 25 mg PO Q12H 12/16/24 01/03/25 History vit B3 20 mg-B5 5 mg-B6 2 mg-B7 75 1 tablet PO DAILY 12/16/24 01/03/25 History hgh-[id number]-inosit-C chew tablet pantoprazole 40 mg tablet,delayed 40 mg PO DAILY #90 tabs 12/20/24 01/03/25 Rx release ciprofloxacin HCl 500 mg tablet 500 mg PO Q12H #10 tabs 12/21/24 Rx (Cipro) phenazopyridine 200 mg tablet 200 mg PO TID PRN pain #30 tabs 12/21/24 Rx (Pyridium) Laboratory Tests 01/03/25 11:18 POC Capillary Glucose 118 H mg/dl (65-105) Patient hx anesthesia problems: other (Pt reports that his throat was sore after most recent GA at [facility]. ) Family hx anesthesia problems: pseudocholinesterase deficiency Results Review: All pre-operative results and documents have been reviewed as part of the pre- operative evaluation. [facility] Past Medical History Medical History Hypertension Anxiety SOB (shortness of breath) Hyponatremia Cerebrovascular disease Diabetic polyneuropathy Lumbar spine pain BMI 27.0-27.9,adult Chronic pain Spasmodic bladder Trochanteric bursitis, left hip Trochanteric bursitis, right hip Heart disease History of prostate cancer Arthritis History of blood clots Carpal tunnel syndrome on both sides Overweight BMI 26.0-26.9,adult Microscopic colitis Dysphagia BMI 26.0-26.9,adult BMI between 19-24,adult Right shoulder pain Left shoulder pain BMI 25.0-25.9,adult 1st MTP arthritis Depression High cholesterol Shortness of breath Wears glasses Light headedness Chills Fever Colonoscopy planned BMI 25.0-25.9,adult GERD (gastroesophageal reflux disease) HLD (hyperlipidemia) HTN (hypertension) Collagenous colitis Adenomatous colon polyp Tendinitis of both rotator cuffs Groin discomfort CAD (coronary artery disease) Carotid stenosis, asymptomatic h/o intracranial cerebral stenosis, evaluated at [place] 05/2019, thought not to be symptomatic cont med tx. Glaucoma Personal history of DVT (deep vein thrombosis) Stenosis of infrarenal abdominal aorta due to arteriosclerosis Says his aorta is mildly enlarged Gout (~08/2019) Prostate cancer Anemia Type 2 diabetes mellitus without complications Surgical History Surgical History Hx of endarterectomy H/O carotid endarterectomy (~10/2022) History of rotator cuff surgery History of angioplasty History of cataract surgery History of colonoscopy 2019 S/P arthroscopic surgery of left knee H/O rectal polypectomy H/O cystoscopy History of prostatectomy Had prostate cancer, status post prostatectomy and later radiation therapy. Has an implanted device to help with urinary incontinence. H/O cardiac catheterization H/O heart artery stent Family History Family History Father , of lung cancer age 83 Hypertension Lung cancer Sibling Hypertension Mother Family history of malignant neoplasm of breast in first degree relative Breast cancer of breast cancer age 37 Sibling No problems noted. Other Diabetes mellitus Family history of cardiovascular disease Family history of elevated blood lipids Family history of malignant neoplasm Social History Social History Social History: The patient has 2 sons and is . He does not have a durable power houseperson. Wishes to be a full code. 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 Smoking packs per day: 1 Smoking cigarettes per day: 20.0 Years smoked: 15 Smoking pack-years: 15.00 Smoking status: Unknown if ever smoked Tobacco type: cigarettes Second hand tobacco smoke exposure: No Smoking end date: 08/31/82 Alcohol intake: unknown Drinks per week: 14 Alcohol use details: 2-3 per day beer Substance use: never Substance use type: does not use Other substance usage details: no beer in over a week; no marijuana in 9 months Do You Feel Safe in your Home?: Yes Lack of Transportation: No Lack of Food: Never True Current Housing: I Have Housing Concerned About Future Housing: No Difficulty Paying Gas/Electric Bills: No Difficulty Paying for Meds: No Currently Unemployed: No Education: Trade/Vocational Certificate Difficulty w/ Childcare or Family Care: No Living arrangements: alone Occupation/Education: retired Additional occupation/education comments: 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 Gender identity (if verbalized by the patient): Male Spiritual care concerns: No Agree to blood products: Yes Anes - Eval Final PreProcedure Day of Procedure 01/03/25 13:33 Patient weight: overweight Lungs: normal air movement Airway: Mallampati scale class III Neurological: alert and oriented Last oral intake: >/= 8 hours ASA classification: III Emergent: no Anesthetic plan: proceed Anesthesia type and monitoring: general ETT and standard monitoring Results Review: All pre-operative results and documents have been reviewed as part of the pre- operative evaluation. HTN, DM fsbs 118, s/p PTCA 2017 and doing well, no cp or sob since. Stress test 2021 without ischemia, s/p R CEA 2022. Informed Consent: The patient's anesthetic plan and its attendant risks and benefits were discussed with the patient/family/POA. Questions were solicited and answers provided to the satisfaction of the patient/family/POA.
[2025-01-03] MEDS: ceFAZolin 2 GM/D5W 50 ML 2 GM/50 ML BAG IVPB (13:56)
[2025-01-03] MEDS: BUPIVACAINE/EPINEPHRINE 0.5% 50 ML VIAL 30 ML INFILTRATE (14:22)
--- NOTE | 2025-01-03 15:01 | P.OP_ITS ---
Procedure Note - Detailed Date of Procedure 01/03/25 Pre-op Diagnosis Reducible umbilical hernia Post-op Diagnosis Same (2 cm umbilical hernia) Procedure Performed Open 2 cm umbilical hernia repair with 6.[address] hernia patch Surgeon Armen Nunez, DO Anesthesia General and Local (0.5% bupivacaine with epinephrine) Indications This is a 74-year-old man who presented with periumbilical pain and pain just to the left of his umbilicus. He has a history of an artificial bladder sphincter insertion and has a reservoir in the left lower quadrant. A CT of his abdomen and pelvis was performed on 12/15/2024 to assess for any other potential abnormalities. There was no evidence of diverticulitis or other significant intra-abdominal findings. Discussions were then made with the patient about treatment options and decision was made to proceed with open umbilical hernia repair with mesh Findings Open umbilical hernia repair with mesh was performed. The patient was found to have a 2 cm umbilical hernia containing preperitoneal fat. The hernia sac was reduced back into the abdominal cavity and a preperitoneal pocket was created for mesh placement. A 6.[address] hernia patch was placed within the preperitoneal pocket. This was secured using 0 Ethibond suture. No specimens were obtained for pathology. Description of Procedure Procedure as well as risks, benefits, and alternatives were discussed with the patient. Written consent was obtained and placed in chart prior to procedure. Patient was brought back to surgical suite. He was placed supine on operating table. He was then intubated by Anesthesia Department. His abdomen was prepped and draped in sterile fashion using chlorhexidine prep. 0.5% bupivacaine with epinephrine was infiltrated locally around the operative area. A 5 cm curvilinear incision was made just superior to the umbilicus using a 15 blade scalpel. Electrocautery was used for hemostasis and for dissection down through the subcutaneous fat. Hernia sac was encountered and this was carefully freed up from surrounding subcutaneous fat using electrocautery. The hernia sac was freed up all the way down to the level of the fascia. The hernia sac was dissected free and reduced back into the abdominal cavity. The umbilical stalk was then lifted off of the fascia with electrocautery. The hernia defect was then measured. This was measuring approximately 2 cm. The decision was made to use a 6.[address] hernia patch. The peritoneum was cleared under the fascia circumferentially around the hernia using blunt dissection and elect rocautery. Once a wide enough pocket was created for the mesh, the mesh was then placed within this preperitoneal pocket and laid out flat centered on the hernia defect. The mesh appeared to be sitting in proper position. The mesh was then secured at the superior and inferior edges using 0 Ethibond U-stitch trans fascial sutures. The fascia was then closed over the mesh well incorporating the anterior leaflet of the mesh into the closure using 0 Ethibond [id number] sutures in a vertical fashion. The repair was inspected and appeared secure. 0.5% bupivacaine with epinephrine was infiltrated around the fascia and subcutaneous space. The umbilical stalk was then reapproximated to the fascia using a 3 0 Vicryl simple interrupted suture. The deep dermis was reapproximated using 3 0 Vicryl simple interrupted sutures, and then the skin was approximated using 4 Monocryl running subcuticular suture. Exofin glue was then applied on top. The patient was then awakened from anesthesia, extubated, and transferred to recovery. Implants 6.[address] hernia patch Estimated Blood Loss 20 Complications No immediate complications Condition Stable Disposition Same day [facility] Billing Surgery - Charge Forward: Surgery Billing
[2025-01-03] MEDS: fentaNYL CITRATE INJ (*CRX) 100 MCG/2 ML VIAL 25 MCG IV PUSH ×6 (15:14→16:07)
[2025-01-03 15:32] LABS: Glucose Point of Care 88 mg/dl (65-105)
[2025-01-03] MEDS: ONDANSETRON INJ 4 MG/2 ML VIAL IV PUSH (15:57)
[2025-01-03] MEDS: oxyCODONE HCL (*CRX) 5 MG TAB IR PO (17:04)
== END 2025-01-03 17:45 | disposition home or self-care (01) ==
PROVIDERS: PCP Family Medicine; Visit Provider Surgery
PROC: (CPT 49591; principal; 2025-01-03 12:30)
DX: K42.9 Umbilical hernia without obstruction or gangrene (principal); E11.9 Type 2 diabetes mellitus without complications; Z87.891 Personal history of nicotine dependence
CPT/HCPCS: 49591; 82948; A9270; C1781; J0690; J1885; J2003; J2405; J2704; J3010; J7120

== ENCOUNTER 2025-01-15 10:43 | Emergency (ER) | payer MEDICARE, SELFPAY ==
--- NOTE | 2025-01-15 10:44 | ED_ITS ---
HPI - Wound/Laceration General Chief Complaint: Wound/Laceration Stated Complaint: wound leakage Time Seen by Provider: 01/15/25 10:43 Source: patient Mode of arrival: ambulatory Limitations: no limitations History of Present Illness HPI narrative: Mitchell is a 74-year-old male patient presenting to the clinic today with multiple complaints. First complaint is for an umbilical wound check/leaking. States that he had a umbilical hernia repair done by Dr. Griffiths on January 03, 2025. Wound started leaking a yellow brown tinged fluid this morning. Has mild pain around the surgical site- rates pain 10/10. Has follow up with Dr. Griffiths on of this week. Also reports dizziness that started when he arrived at the [facility]. History of hypotension- orthostatic hypotension. Is also experiencing burning with urination that has been going on for the past few days after they have turned back on his urinary implant. Patient has history of prostate surgery, diabetes, coronary artery disease, cerebrovascular disease, hypertension, and chronic kidney disease with a vast other medical history conditions in the medical record. Denies any chest pain or shortness of breath at this time. Related Data Home Medications Medication Instructions Recorded Confirmed Last Taken Type nitroglycerin 0.3 mg sublingual 0.3 mg sublingual PRN PRN Chest 12/05/21 12/16/24 Unknown History tablet Pain ticagrelor 60 mg tablet (Brilinta) 60 mg PO BID 12/05/21 01/03/25 12/29/24 History aspirin 81 mg tablet,delayed 81 mg PO DAILY 12/06/21 12/16/24 03/14/22 09:00 History release (Adult Aspirin Regimen) chlorthalidone 25 mg tablet 25 mg PO DAILY 04/16/23 01/03/25 01/02/25 History rosuvastatin 40 mg tablet 40 mg PO DAILY 10/13/23 01/03/25 01/02/25 History telmisartan 80 mg tablet 80 mg PO DAILY 06/08/24 01/03/25 01/02/25 History amlodipine 5 mg tablet 5 mg PO DAILY 09/29/24 01/03/25 01/03/25 History metoprolol tartrate 25 mg tablet 25 mg PO Q12H 12/16/24 01/03/25 01/03/25 History vit B3 20 mg-B5 5 mg-B6 2 mg-B7 75 1 tablet PO DAILY 12/16/24 01/03/25 12/29/24 History [id number]-inosit-C chew tablet Allergies Allergy/AdvReac Type Severity Reaction Status Date / Time dapagliflozin (From Farxiga) AdvReac Severe Hallucinati Verified 01/15/25 10:49 ng metformin AdvReac Severe Diarrhea Verified 01/15/25 10:49 semaglutide (From Ozempic) AdvReac Intermediate Confusion Verified 01/15/25 10:49 Review of Systems Review of Systems: Pertinent positives per HPI. Patient denies any fever, rash, headache, visual changes, cough, runny nose, sore throat, shortness of breath, chest pain, palpitations, nausea, vomiting, diarrhea, constipation. [facility] Past Medical History Medical History Hypertension Anxiety SOB (shortness of breath) Hyponatremia Cerebrovascular disease Diabetic polyneuropathy Lumbar spine pain BMI 27.0-27.9,adult Chronic pain Spasmodic bladder Trochanteric bursitis, left hip Trochanteric bursitis, right hip Heart disease History of prostate cancer Arthritis History of blood clots Carpal tunnel syndrome on both sides Overweight BMI 26.0-26.9,adult Microscopic colitis Dysphagia BMI 26.0-26.9,adult BMI between 19-24,adult Right shoulder pain Left shoulder pain BMI 25.0-25.9,adult 1st MTP arthritis Depression High cholesterol Shortness of breath Wears glasses Light headedness Chills Fever Colonoscopy planned BMI 25.0-25.9,adult GERD (gastroesophageal reflux disease) HLD (hyperlipidemia) HTN (hypertension) Collagenous colitis Adenomatous colon polyp Tendinitis of both rotator cuffs Groin discomfort CAD (coronary artery disease) Carotid stenosis, asymptomatic h/o intracranial cerebral stenosis, evaluated at [place] 05/2019, thought not to be symptomatic cont med tx. Glaucoma Personal history of DVT (deep vein thrombosis) Stenosis of infrarenal abdominal aorta due to arteriosclerosis Says his aorta is mildly enlarged Gout (~08/2019) Prostate cancer Anemia Type 2 diabetes mellitus without complications Surgical History Surgical History Hx of endarterectomy H/O carotid endarterectomy (~10/2022) History of rotator cuff surgery History of angioplasty History of cataract surgery History of colonoscopy 2019 S/P arthroscopic surgery of left knee H/O rectal polypectomy H/O cystoscopy History of prostatectomy Had prostate cancer, status post prostatectomy and later radiation therapy. Has an implanted device to help with urinary incontinence. H/O cardiac catheterization H/O heart artery stent Family History Family History Father , of lung cancer age 83 Hypertension Lung cancer Sibling Hypertension Mother Family history of malignant neoplasm of breast in first degree relative Breast cancer of breast cancer age 37 Sibling No problems noted. Other Diabetes mellitus Family history of cardiovascular disease Family history of elevated blood lipids Family history of malignant neoplasm Social History Social History Social History: The patient has 2 sons and is . He does not have a durable power commercial attorney. Wishes to be a full code. 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 Smoking packs per day: 1 Smoking cigarettes per day: 20.0 Years smoked: 15 Smoking pack-years: 15.00 Smoking status: Unknown if ever smoked Tobacco type: cigarettes Second hand tobacco smoke exposure: No Smoking end date: 08/31/82 Alcohol intake: unknown Drinks per week: 14 Alcohol use details: 2-3 per day beer Substance use: never Substance use type: does not use Other substance usage details: no beer in over a week; no marijuana in 9 months Do You Feel Safe in your Home?: Yes Lack of Transportation: No Lack of Food: Never True Current Housing: I Have Housing Concerned About Future Housing: No Difficulty Paying Gas/Electric Bills: No Difficulty Paying for Meds: No Currently Unemployed: No Education: Trade/Vocational Certificate Difficulty w/ Childcare or Family Care: No Living arrangements: alone Occupation/Education: retired Additional occupation/education comments: 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 Gender identity (if verbalized by the patient): Male Spiritual care concerns: No Agree to blood products: Yes Comments At the time of my signature, I reviewed and agree with the nursing past medical, surgical, social, and family history. There is no relevant family history pertinent to the patient complaint. Exam Narrative: General: Well-developed, overweight, in no apparent distress. Head: Normocephalic, atraumatic. Cardio: Regular rate and rhythm, s1 and s2 normal, no murmur appreciated. Resp: Clear to auscultation bilaterally, no rhonchi, rales, wheezing or rubs. Abdomen: Soft, pliable, bowel sounds present in all quadrants, itching around the surgical site, mild tender to palpation over the surgical site, no organomegly, no CVAT tenderness. : Deferred Integumentary: [place], warm, and dry, umbilical hernia surgical wound without localized redness or swelling, small amount of yellowish brown draining from a very small opening of the wound Course Course Emergency Course: Portions of this record may have been created with voice recognition software. Level of Care: Express Care Visit Vital Signs Vital signs: Vital Signs Temperature 36.5 C 01/15/25 10:53 Pulse Rate 70 01/15/25 10:53 Respiratory Rate 20 01/15/25 10:53 Blood Pressure 100/29 L 01/15/25 10:53 Pulse Oximetry 100 01/15/25 10:53 Oxygen Delivery Room Air 01/15/25 10:53 Temperature 36.5 C 01/15/25 10:53 Pulse Rate 72 01/15/25 11:21 Respiratory Rate 20 01/15/25 10:58 Blood Pressure 114/40 L 01/15/25 11:21 Pulse Oximetry 100 01/15/25 10:58 Oxygen Delivery Room Air 01/15/25 10:58 Vital signs reviewed Transfer Transfered to: [place] Transportation: ALS Transfer rationale: Dizziness, dysuria, chills, hematuria, proteinurea, abdomen surgical wound- drainage Accepting physician: Dr. Dian Vu cytotechnologist/cytology supervisor comments: Report to Mirella RN- Patient to be transferred via [facility]. MDM - Wound/Laceration MDM Narrative Medical decision making narrative: At the time of visit patient is resting comfortably on the exam table. Patient appears to be nontoxic. Labs: Blood sugar was 156 in the clinic, urinalysis shows 2+ protein and a trac e of blood. Wound culture was obtained and sent to the lab Orthostatic blood pressures: Lying blood pressure was 120/40 with a rate is 64, sitting was 112/47 with a heart rate is 66, standing blood pressure was 114/40 with heart rate of 72. Plan: Patient is reporting dizziness, chills, dysuria, and wound discharge. No fever. Abdomen is mildly tender per patient. Pain 2/10. Blood pressure i nitially 100/29-orthostatic blood pressures were obtained. Patient was reporting worsening of dizziness during the orthostatics blood pressures. No chest pain or shortness of breath. Recommend transfer to the ER for further evaluation. Patient agrees to transfer to [facility]. Spoke with Mirella CANCINO and report was given for continuity of care and Dr. Roy is the accepting provider for the patient transfer. Patient unable to find his own transport to the ED and since he is dizzy I recommend him not drive. He has agreed to go by ambulance. EMS here to transport patient to the ED. Differential Diagnosis Differential diagnosis: Likely abscess and other (Wound infection, wound dehiscence, cellulitis, UTI, sepsis, acute abdomen, orthostatic hypotension, hypoglycemia.) Lab Data Labs: Lab Results 01/15/25 01/15/25 Range/Units 11:04 11:31 POC Capillary Glucose 154 H (65-105) mg/dl POC Urine Color Yellow POC Urine Clarity Clear POC Urine pH 5.5 POC Ur Specif [place] 1.030 POC Urine Protein 2+ (Negative) POC Ur Glucose (UA) Negative (Negative) POC Urine Ketones Negative (Negative) POC Urine Blood Trace (Negative) POC Urine Nitrite Negative (Negative) POC Urine Bilirubin Negative (Negative) POC Urine Urobilinogen 0.2 POC U Leukocyte Esteras Negative (Negative) Discharge Plan Discharge Clinical Impression: Status post umbilical hernia repair, follow-up exam, Drainage from surgical wound, Dizzinesses, Chills (without fever), Dysuria, Hematuria with proteinuria Patient Disposition: Acute Care Hospital Condition: Guarded Prognosis Patient Language: Filipino Prescriptions: No Action nitroglycerin 0.3 mg tablet, sublingual 0.3 mg sublingual PRN PRN (Reason: Chest Pain) Brilinta 60 mg tablet 60 mg PO BID Patient Comments: HOLD 5 days prior to surgery chlorthalidone 25 mg tablet 25 mg PO DAILY telmisartan 80 mg tablet 80 mg PO DAILY rosuvastatin 40 mg tablet 40 mg PO DAILY Kerendia 10 mg tablet 10 mg PO DAILY Qty: 30 7RF aspirin [Adult Aspirin Regimen] 81 mg tablet,delayed release (DR/EC) 81 mg PO DAILY linagliptin 5 mg tablet 5 mg PO QAM Qty: 90 2RF (DME) Accu-Chek Aaliyah Plus test strp Strip See Rx Instructions .Route Qty: 400 1RF Rx Instructions: Check blood sugar 4 times daily (DME) lancets [E-Z Ject Lancets] 33 gauge misc See Rx Instructions .Route Qty: 400 12RF Rx Instructions: three times daily glimepiride 1 mg tablet 1 mg PO BID Qty: 180 1RF Rx Instructions: 1 mg before breakfast and 1 mg before supper Gvoke HypoPen 2-Pack 1 mg/0.2 mL auto-injector 1 mg subcut ONCE Qty: 0.4 0RF Rx Instructions: as a single dose; may repeat once after 15 minutes if no response amlodipine 5 mg tablet 5 mg PO DAILY [id number]-inosit-C 20 mg-5 mg- 2 mg-75 mcg tablet,chewable 1 tablet PO DAILY metoprolol tartrate 25 mg Tablet 25 mg PO Q12H hydrocodone-acetaminophen 5-325 mg tablet 1 tablet PO Q4H PRN (Reason: pain) Qty: 10 0RF alendronate [Fosamax] 70 mg tablet 70 mg PO WEEKLY Qty: 4 2RF alprazolam 0.5 mg tablet 0.5 mg PO TID PRN (Reason: Anxiety) Qty: 20 0RF allopurinol 300 mg tablet 300 mg PO DAILY Qty: 90 1RF pantoprazole 40 mg tablet,delayed release (DR/EC) 40 mg PO DAILY Qty: 90 1RF ciprofloxacin HCl [Cipro] 500 mg tablet 500 mg PO Q12H Qty: 10 0RF phenazopyridine [Pyridium] 200 mg tablet 200 mg PO TID PRN (Reason: pain) Qty: 30 0RF Follow-up/Referrals: Fuentes Orellana MD [Primary Care Provider] - Time of Disposition: 11:35 Quality NIHSS Nursing Documentation ED NIHSS nursing documentation: reviewed/agree
--- OUTSIDE RECORDS SUMMARY | 2025-01-15 10:45 | XMS_ITS | Encounter Summary ---
Author Organization [facility] Address [address] [place] [address] Phone Care Team Providers Care Refrigeration Engine Operator Name Role Phone Fuentes Orellana MD Primary Care Provider Brent Dickinson DO Unavailable [phone] Faviola Jiménez TERRAZZO TILE MAKER, SKIN PASS OPERATOR Unavailable Shawnee Mckinney MD Unavailable Chicho Clayton MD Unavailable Lai Lambert TERRAZZO TILE MAKER, SKIN PASS OPERATOR Unavailable Kami Meneses MD Unavailable [phone] Anette Bond MD Unavailable [phone] Kay Gordon TERRAZZO TILE MAKER, SKIN PASS OPERATOR Unavailable Kami Meneses MD Unavailable [phone] Kami Meneses MD Unavailable [phone] Reason for Visit * Reason Comments Medication Refill Encounter Details Date Type Department Care Team (Late st Contact Info) Description 10/15/2021 Refill [facility] - Gastroenterology - Elizabeth [address] [place] [address] Ingrid Mccloud Ashley, PAC [address] [place] [address] Medication Refill Social History Tobacco Use Types [...] 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 RENOVATOR documented in this encounter Plan of Treatment Upcoming Encounters Date Type Department Care Team (Late st Contact Info) Description 01/27/2025 2:15 PM CDT Office Visit [facility] UR[facility]Y #[address] [place] [address] Kami Meneses MD #[address] [address] documented as of this encounter Visit Diagnoses Not on filedocumented in this encounter Care Teams Refrigeration Engine Operator Relationship Specialty Start Date End Date Fuentes Orellana MD [address] [place] [address] PCP - General Family Medicine 07/06/15 Brent Dickinson DO [address] [place] [address] Gastroenterology 06/27/16 Faviola Jiménez APRN, SKIN PASS OPERATOR [address] [facility] [place] [address] Nurse Practitioner Advanced Practice Nurse 07/22/16 Shawnee Mckinney MD [address] [facility] [address] [place] [address] Urologist Urology 06/07/19 Chicho Clayton MD [address] [facility] [address] [place] [address] Oncology 06/13/19 Lai Lambert APRN, SKIN PASS OPERATOR #2 [place] [address] Nurse Practitioner Advanced Practice Nurse 02/10/23 Kami Meneses MD #[address] [address] Consulting Physician Urology 06/16/23 Anette Bond MD #2 [place] [address] Consulting Physician Gastroenterology 12/25/22 Kay Gordon APRN, SKIN PASS OPERATOR #2 [place] [address] Nurse Practitioner Advanced Practice Nurse 06/16/24 Kami Meneses MD #[address] [place] [address] Consulting Physician Urology 08/19/24 Kami Meneses MD [address], [facility] [address] [place] [address] Consulting Physician Urology 01/06/25 documented as of this encounter
--- OUTSIDE RECORDS SUMMARY | 2025-01-15 10:45 | XMS_ITS | Encounter Summary ---
Author Organization [facility] Address [address] [place] [address] Phone Care Team Providers Care Solid Waste Truck Driver Name Role Phone Fuentes Orellana MD Primary Care Provider + [phone] Itz Iyer MD Unavailable [phone] Shawnee Mckinney MD Unavailable [phone] Chicho Clayton MD Unavailable Maria Guadalupe Palacios RN Unavailable Unava ilable Lupillo Davenport MD Unavailable [phone] Danis Meza SALES PLANNING MANAGER Unavailable Antonette Owens NP Unavailable Aniceto Foley MD Unavailable [phone] Encounter Details Date Type Department Care [...] file Legal Sex Male 12:32 AM EMERGENCY ROOM NURSE Gender Identity Not on file Sexual Orientation [...] on filedocumented in this encounter Care Teams Solid Waste Truck Driver Relationship Specialty Start Date End Date Fuentes Orellana MD PCP - General 11/28/16 Itz Iyer MD [address] [place] [address] Consulting Physician Urology 05/31/18 Shawnee Mckinney MD [address] [facility] [address] [place] [address] Referring Physician Urology 06/03/18 Chicho Clayton MD [address] [place] [address] Medical Oncologist/Hematologis t Medical Oncology 06/07/18 Maria Guadalupe Palacios, RN Registered Nurse 06/10/18 Lupillo Davenport MD Referring Physician Radiation Oncology 06/16/18 Danis Meza NP [address] [place] [address] Nurse Practitioner Urology 10/06/22 Antonette Owens NP [address] [place] [address] Nurse Practitioner Cardiovascular Disease 10/06/22 Aniceto Foley MD [address] [place] [address] Surgeon Vascular Surgery 10/31/22 documented as of this encounter
--- OUTSIDE RECORDS SUMMARY | 2025-01-15 10:45 | XMS_ITS | Encounter Summary ---
Author Organization [facility] Address [address] [place] [address] Phone Care Team Providers Care Lead Designer Name Role Phone Fuentes Orellana MD Primary Care Provider [phone] Brent Dickinson DO Unavailable [phone] Faviola Jiménez 3RD MATE, SUPERVISOR ABATTOIR Unavailable Shawnee Mckinney MD Unavailable Chicho Clayton MD Unavailable Lai Lambert 3RD MATE, SUPERVISOR ABATTOIR Unavailable Kami Meneses MD Unavailable [phone] Anette Bond MD Unavailable [phone] Kay Gordon 3RD MATE, SUPERVISOR ABATTOIR Unavailable Kami Meneses MD Unavailable [phone] Kami Meneses MD Unavailable [phone] Reason for Visit * Reason Comments Medication Refill Encounter Details Date Type Department Care Team (Late st Contact Info) Description 03/25/2021 Refill [facility] - Gastroenterology - [place] [address] [place] [address] Ingrid Mccloud Ashley, PAC [address] [place] [address] Medication Refill Social History Tobacco Use Types [...] Job 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 Date 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 Not on file Not on cory e documented as of this encounter Miscellaneous Notes * Telephone Encounter - Kg Bonilla CMA - 03/25/2021 9:30 AM CDT Pharmacy requesting refill of: Requested Prescriptions Pending Prescriptions Disp Refills â€¢ pantoprazole (PROTONIX) 40 MG Tablet Delayed Response [...] Description 01/27/2025 2:15 PM CDT Office Visit [facility] [address] [place] [address] Kami Meneses MD #[address] [address] documented as of this encounter Visit Diagnoses Not on filedocumented in this encounter Additional Health Concerns Infection Onset Date Last Indicated Resolved Time C. difficile Rule-Out 04/10/2021 04/10/20212020 12:16 AM CDT documented as of this encounter Care Teams Lead Designer Relationship Specialty Start Date End Date Fuentes Orellana MD [address] [facility] [place] [address] PCP - General Family Medicine 07/06/15 Brent Dickinson DO [address] [facility] [place] [address] Gastroenterology 06/27/16 Faviola Jiménez APRN, SUPERVISOR ABATTOIR [address] [place] [address] Nurse Practitioner Advanced Practice Nurse 07/22/16 Shawnee Mckinney MD [address] [facility] [address] [place] [address] Urologist Urology 06/07/19 Chicho Clayton MD [address] [facility] 7 [place] [address] Oncology 06/13/19 Lai Lambert APRN, SUPERVISOR ABATTOIR [address] [place] [address] Nurse Practitioner Advanced Practice Nurse 02/10/23 Kami Meneses MD #[address] [address] Consulting Physician Urology 06/16/23 Anette Bond MD #2 [place] [address] Consulting Physician Gastroenterology 12/25/22 Kay Gordon APRN, SUPERVISOR ABATTOIR [address] [place] [address] Nurse Practitioner Advanced Practice Nurse 06/16/24 Kami Meneses MD [address] [address] Consulting Physician Urology 08/19/24 Kami Meneses MD [address] [address] Consulting Physician Urology 01/06/25 documented as of this encounter
--- OUTSIDE RECORDS SUMMARY | 2025-01-15 10:45 | XMS_ITS | Clinical Summary ---
Author Organization [facility] Address [address] [place] [address] Phone Care Team Providers Care Nursing Secretary Name Role Phone Fuentes Orellana MD Primary Care Provider [phone] Allergies No known active allergies Medications pantoprazole [...] series) 2024 Medical Devices Implanted Type Area Edge Trimmer Device Identifier Shelf Expiration Date Model / Serial / Lot Ams 800 Urinary Control System(Penile Implant) Description:MRI conditional for 3T or less -danisha 01/04/19 Insurance MEDICARE PART A AND B [facility] [id number] Care Teams Nursing Secretary Relationship Specialty Start Date End Date Fuentes Orellana MD [address] [place] [address] PCP - General Family Practice 01/04/19
--- OUTSIDE RECORDS SUMMARY | 2025-01-15 10:45 | XMS_ITS | Encounter Summary ---
Author Organization [facility] Address [address] [place] [address] Phone Care Team Providers Care Instructor Of Sociology Name Role Phone Fuentes Orellana MD Primary Care Provider [phone] Brent Dickinson DO Unavailable [phone] Faviloa Jiménez PHARMACY COORDINATOR, AGENCY APPOINTMENTS SUPERVISOR Unavailable Shawnee Mckinney MD Unavailable Chicho Clayton MD Unavailable Lai Lambert PHARMACY COORDINATOR, AGENCY APPOINTMENTS SUPERVISOR Unavailable [phone] Kami Meneses MD Unavailable [phone] Anette Bond MD Unavailable [phone] Kay Gordon PHARMACY COORDINATOR, AGENCY APPOINTMENTS SUPERVISOR Unavailable Kami Meneses MD Unavailable [phone] Kami Meneses MD Unavailable [phone] Encounter Details Date Type Department Care Team (Late st Contact Info) Description 12/16/2024 Telephone [facility] [address] [place] [address] Kami Meneses MD #[address] [address] Social History Tobacco Use Types Packs/Day Years [...] 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 Chicho Clayton at [place] for prostate. * Telephone Encounter - Kami Meneses MD - 12/16/2024 11:45 AM CDT Can you ask the patient who follows him for his prostate cancer? documented in this encounter Plan of Treatment Upcoming Encounters Date Type Department Care Team (Late st Contact Info) Description 01/27/2025 2:15 PM CDT Office Visit [facility] [address] [place] [address] Kami Meneses MD [address] [address] documented as of this encounter Visit Diagnoses Not on filedocumented in this encounter Care Teams Instructor Of Sociology Relationship Specialty Start Date End Date Fuentes Orellana MD [address] [place] [address] PCP - General Family Medicine 07/06/15 Brent Dickinson DO [address] [place] [address] Gastroenterology 06/27/16 Faviola Jiménez APRN, AGENCY APPOINTMENTS SUPERVISOR [address] [place] [address] Nurse Practitioner Advanced Practice Nurse 07/22/16 Shawnee Mckinney MD 4960 [facility] [address] [place] [address] Urologist Urology 06/07/19 Chicho Clayton MD 4921 [facility] 7 [place] [address] Oncology 06/13/19 Lai Lambert APRN, AGENCY APPOINTMENTS SUPERVISOR #2 [place] [address] Nurse Practitioner Advanced Practice Nurse 02/10/23 Kami Meneses MD #[address] [address] Consulting Physician Urology 06/16/23 Anette Bond MD #2 [place] [address] Consulting Physician Gastroenterology 12/25/22 Kay Gordon APRN, AGENCY APPOINTMENTS SUPERVISOR #2 [place] [address] Nurse Practitioner Advanced Practice Nurse 06/16/24 Kami Meneses MD #[address] [address] Consulting Physician Urology 08/19/24 Kami Meneses MD #[address] [address] Consulting Physician Urology 01/06/25 documented as of this encounter
--- OUTSIDE RECORDS SUMMARY | 2025-01-15 10:45 | XMS_ITS | Encounter Summary ---
Author Organization [facility] Address [address] [place] [address] Phone Care Team Providers Care Freight Air Brake Fitter Name Role Phone Fuentes Orellana MD Primary Care Provider [phone] Brent Dickinson DO Unavailable [phone] Faviola Jiménez POLITICAL CONSULTANT, CORKING MACHINE OPERATOR Unavailable Shawnee Mckinney MD Unavailable Chicho Clayton MD Unavailable Lai Lambert POLITICAL CONSULTANT, CORKING MACHINE OPERATOR Unavailable [phone] Kami Meneses MD Unavailable [phone] Anette Bond MD Unavailable [phone] Kay Gordon POLITICAL CONSULTANT, CORKING MACHINE OPERATOR Unavailable Kami Meneses MD Unavailable [phone] Kami Meneses MD Unavailable [phone] Encounter Details Date Type Department Care Team (Late st Contact Info) Description 08/22/2024 Telephone [facility] [address] [place] [address] Kami Meneses MD #[address], [facility] [address] [place] [address] Social History Tobacco Use Types Packs/Day Years [...] 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 ETING RESEARCH ANALYST * Telephone Encounter - Elidia Dill - 08/29/2024 8:20 AM CST Please see Dr. Otto message. ETING RESEARCH ANALYST * Telephone Encounter - Kami Meneses MD [...] sphincter. This needs to be done at [facility] by [facility]. He will need a urine culture 14 days prior to surgery. Hibiclens shower the night before morning of surgery, vancomycin and gentamicin for antibiotics ETING RESEARCH ANALYST ETING RESEARCH ANALYST documented in this encounter Plan of Treatment Upcoming Encounters Date Type Department Care Team (Late st Contact Info) Description 01/27/2025 2:15 PM CDT Office Visit [facility] #2 [place] [address] Kami Meneses MD #[address] [address] documented as of this encounter Visit Diagnoses Not on filedocumented in this encounter Care Teams Freight Air Brake Fitter Relationship Specialty Start Date End Date Fuentes Orellana MD [address] [address] PCP - General Family Medicine 07/06/15 Brent Dickinson DO [address] [address] Gastroenterology 06/27/16 Faviola Jiménez, POLITICAL CONSULTANT, CORKING MACHINE OPERATOR [address] [place] [address] Nurse Practitioner Advanced Practice Nurse 07/22/16 Shawnee Mckinney MD 4960 [facility] [address] [place] [address] Urologist Urology 06/07/19 Chicho Clayton MD 4921 [facility] 7 [place] [address] Oncology 06/13/19 Lai Lambert APRN, CORKING MACHINE OPERATOR #[address] [place] [address] Nurse Practitioner Advanced Practice Nurse 02/10/23 Kami Meneses MD [address] [address] Consulting Physician Urology 06/16/23 Anette Bond MD #2 [place] [address] Consulting Physician Gastroenterology 12/25/22 Kay Gordon APRN, CORKING MACHINE OPERATOR #2 [facility] [place] [address] Nurse Practitioner Advanced Practice Nurse 06/16/24 Kami Meneses MD [address] [address] Consulting Physician Urology 08/19/24 Kami Meneses MD [address] [address] Consulting Physician Urology 01/06/25 documented as of this encounter
--- OUTSIDE RECORDS SUMMARY | 2025-01-15 10:45 | XMS_ITS | Encounter Summary ---
Author Organization [facility] Address [address] [facility] [address] [place] [address] Care Team Providers Care Shipping And Receiving Weigher Name Role Phone Fuentes Orellana MD Primary Care Provider [phone] Fuentes Orellana MD Primary Care Provider [phone] Itz Iyer MD Unavailable [phone] Lupillo Davenport MD Unavailable [phone] Lupillo Davenport MD Unavailable [phone] Shawnee Mckinney MD Unavailable [phone] Chicho Clayton MD Unavailable Newton Weeks MD Unavailable [phone] Maria Guadalupe Palacios RN Unavailable Unava ilable Lupillo Davenport MD Unavailable [phone] Itz Iyer MD Unavailable [phone] Itz Iyer MD Unavailable [phone] Itz Iyer MD Unavailable [phone] Itz Iyer MD Unavailable [phone] Itz Iyer MD Unavailable [phone] Itz Iyer MD Unavailable [phone] Danis Meza CONTROLS DESIGN ENGINEER Unavailable [phone] Rater, Antonette CONTROLS DESIGN ENGINEER Unavailable Aniceto Foley MD Unavailable [phone] Encounter Details Date Type Department Care Team (Late st Contact Info) Description 11/18/2016 Orders Only [facility] Provider, MD Katie [facility] [place] [address] Social History Tobacco Use Types Packs/Day Years Used Date Smoking Tobacco: Never Assessed Sex and Gender Information Value Date Recorded Sex Assigned at Not on file Legal Sex 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 Gender Identity Not on file Sexual [...] on filedocumented in this encounter Care Teams Shipping And Receiving Weigher Relationship Specialty Start Date End Date Fuentes Orellana MD PCP - General 11/28/16 Fuentes Orellana MD PCP - General 07/14/07 11/27/16 Itz Iyer MD [address] [facility] [address] [place] [address] Consulting Physician Urology 05/31/18 Lupillo Davenport MD [address] [place] [address] Referring Physician Radiation Oncology 05/31/18 Lupillo Davenport MD [address] [place] [address] Referring Physician Radiation Oncology 05/31/18 Shawnee Mckinney MD 4960 [facility] [address] [place] [address] Referring Physician Urology 06/03/18 Chicho Clayton MD 4921 [facility] [address] [place] [address] Medical Oncologist/Hematologis t Medical Oncology 06/07/18 Newton Weeks MD [address] [facility] [address] [place] [address] Referring Physician Radiation Oncology 06/07/18 Maria Guadalupe Palacios, RN Registered Nurse 06/10/18 Lupillo Davenport MD [address] [place] [address] Referring Physician Radiation Oncology 06/16/18 Itz Iyer MD [address] [address] Consulting Physician Urology 06/17/18 06/17/18 Itz Iyer MD [address] [address] Consulting Physician Urology 06/18/18 06/18/18 Itz Iyer MD [address] [place] [address] Consulting Physician Urology 06/18/18 06/18/18 Itz Iyer MD [address] [place] [address] Consulting Physician Urology 06/22/18 06/22/18 Itz Iyer MD [address] [place] [address] Consulting Physician Urology 07/01/18 07/01/18 Itz Iyer MD [address] [place] [address] Consulting Physician Urology 07/06/18 07/06/18 Danis Meza NP [address] [place] [address] Nurse Practitioner Urology 10/06/22 Antonette Owens NP [address] [place] [address] Nurse Practitioner Cardiovascular Disease 10/06/22 Aniceto Foley MD [address] [place] [address] Surgeon Vascular Surgery 10/31/22 documented as of this encounter
--- OUTSIDE RECORDS SUMMARY | 2025-01-15 10:45 | XMS_ITS | Clinical Summary ---
Author Organization [facility] Address [address], [facility] [address] [place] [address] Phone Care Team Providers Care Teamcenter Consultant Name Role Phone Fuentes Orellana MD Primary Care Provider [phone] Brent Dickinson DO Unavailable [phone] Faviola Jiménez INSULATOR TESTER, PROFESSIONAL NURSE Unavailable Shawnee Mckinney MD Unavailable Chicho Clayton MD Unavailable Lai Lambert INSULATOR TESTER, PROFESSIONAL NURSE Unavailable [phone] Kami Meneses MD Unavailable [phone] Anette Bond MD Unavailable [phone] Kay Gordon INSULATOR TESTER, PROFESSIONAL NURSE Unavailable Kami Meneses MD Unavailable [phone] Kami Meneses MD Unavailable [phone] Allergies No known active allergies Medications [...] Encounters Date Type Department Care Team Description 01/13/2025 Telephone [facility] [place] [address] Kami Meneses MD 01/10/2025 1:30 PM CDT Office Visit [facility] [place] [address] Kami Meneses MD UTI symptoms (Primary Dx) Discharge Disposition: Discharged to home or Selfcare 01/10/2025 Travel 12/23/2024 9:00 AM CDT Office Visit [facility] [address] [place] [address] Kami Meneses MD UTI symptoms (Primary Dx) Discharge Disposition: Discharged to home or Selfcare 12/23/2024 Travel 12/21/2024 Telephone [facility] [place] [address] Kami Meneses MD Testicle Pain 12/16/2024 10:45 AM CDT Office Visit [facility] [address] [place] [address] Kami Meneses MD Stress incontinence (female) (male) (Primary Dx) Discharge Disposition: Discharged to home or Selfcare 12/16/2024 Telephone [facility] [address] [place] [address] Kami Meneses MD 12/16/2024 Travel 10/26/2024 Telephone [facility] [address] [place] [address] Kami Meneses MD Pre-surgical question from Last [...] 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 Not on file Not on cory e Last Filed Vital Signs Vital Sign Reading Time Taken Comments Blood Pressure 154/64 12/23/2024 9:15 AM CDT Pulse 69 12/23/2024 9:15 AM CDT Temperature 36.4 C (97.6 F) 08/10/2024 9:53 AM NUCLEAR FUEL PROCESSING TECHNICIAN Respiratory Rate 16 01/10/2025 1:15 PM CDT Oxygen Saturation 97% 12/23/2024 9:15 AM CDT Inhaled Oxygen Concentration - - Weight 72.6 kg (160 lb) 01/10/2025 1:15 PM CDT Height 162.6 cm (5' 4 ) 01/10/2025 1:15 PM CDT Body Mass Index 27.46 01/10/2025 1:15 PM CDT Plan of Treatment Upcoming Encounters Date Type Department Care Team (Late st Contact Info) Description 01/27/2025 2:15 PM CDT Office Visit [facility] [address] [place] [address] Kami Meneses MD [address] [address] Health Maintenance Due Date Last Done Comments [...] Date/Time Associated Diagnosis Comments CULTURE, URINE Routine 01/10/2025 1:45 PM CDT UTI symptoms CULTURE, URINE Routine 12/23/2024 10:48 AM CDT UTI symptoms HM COLONOSCOPY Routine 05/24/2020 from Last 3 Months or Most Recently Relevant to Health Maintenance Results * CULTURE, URINE (01/10/2025 1:45 PM CDT) Only the most recent of2 resultswithin the time period is included. CULTURE RESULTS No growth final 01/11/2025 5:23 PM CDT [facility] Culture URINE SPECIMEN OBTAINED BY CLEAN CATCH PROCEDURE / Unknown Non-Phlebotomy Collection / Unknown 01/10/2025 1:45 PM CDT 01/10/2025 1:45 PM CDT us Deanneaishahrzad Gleason MD MICROBIOLOGY - GENERAL ORDERAB LES Final Result [facility] [address] [place] [address], [place] * COLONOSCOPY (05/24/2020) Brent Dickinson DO PROCEDURE/MINOR SURGICAL ORDERA BLES Final Result from Last 3 Months or Most Recently Relevant to Health Maintenance Insurance MEDICARE [facility] Care Teams Teamcenter Consultant Relationship Specialty Start Date End Date Fuentes Orellana MD [address] [address] PCP - General Family Medicine 07/06/15 Brent Dickinson DO [address] [address] Gastroenterology 06/27/16 Faviola Jiménez, INSULATOR TESTER, PROFESSIONAL NURSE [address] [place] [address] Nurse Practitioner Advanced Practice Nurse 07/22/16 Shawnee Mckinney MD [address] [facility] [address] [place] [address] Urologist Urology 06/07/19 Chicho Clayton MD [address] [facility] [address] [place] [address] Oncology 06/13/19 Lai Lambert APRN, PROFESSIONAL NURSE [address] [place] [address] Nurse Practitioner Advanced Practice Nurse 02/10/23 Kami Meneses MD [address] [address] Consulting Physician Urology 06/16/23 Anette Bond MD [address] [place] [address] Consulting Physician Gastroenterology 12/25/22 Kay Gordon APRN, PROFESSIONAL NURSE [address] [place] [address] Nurse Practitioner Advanced Practice Nurse 06/16/24 Kami Meneses MD [address] [facility] [address] [address] Consulting Physician Urology 08/19/24 Kami Meneses MD [address] [address] Consulting Physician Urology 01/06/25
--- OUTSIDE RECORDS SUMMARY | 2025-01-15 10:45 | XMS_ITS | Clinical Summary ---
Author Organization [facility] [address] Address [address] [place] [address] Care Team Providers Care Visualization Developer Name Role Phone Fuentes Orellana MD Primary Care Provider Itz Iyer MD Unavailable [phone] Shawnee Mckinney MD Unavailable [phone] Chicho Clayton MD Unavailable Maria Guadalupe Palacios RN Unavailable Unava ilable Lupillo Davenport MD Unavailable [phone] Danis Meza CHIEF DIGITAL MEDIA OFFICER Unavailable Antonette Owens NP Unavailable Aniceto Foley MD Unavailable [phone] Allergies No known active allergies Medications [...] immediate release tabletIndicatio ns:Coronary artery disease involving knik coronary artery of knik heart without angina pectoris Take 1 tablet [...] (10/21/2022): Added automatically from request for surgery [id number] Assessment & Plan (10/30/2022 2:56 PM PACKAGING DESIGN ENGINEER): - OR 3/2 for planned R CEA - OU status, Q2h NV/VS monitoring - Bedrest today, OOB/PT POD #1 - SBP goal 100-160, nicardipine for elevated BP - Continue aspirin and statin - Plan to stager home medications and resume overnight Atherosclerosis of knik ar teries of extremities with intermittent claudication, bilateral legs 06/03/2022 Melanoma 01/10/2021 Anxiety 01/10/2021 DM (diabetes mellitus) 01/10/2021 Assessment & Plan (10/30/2022 9:59 AM PACKAGING DESIGN ENGINEER): - A1c 7.6% 10/2022 - SSI while inpatient - CC diet when eating Elevated left ventricular end-diastolic pressure (LVEDP) 11/15/2019 Encounter for surgical after care following surgery of circulatory system 05/20/2019 Prostate cancer 09/10/2018 Assessment & Plan (10/27/2018 9:53 AM PACKAGING DESIGN ENGINEER): Follows with urology, has his PSA monitored it is increasing, but still WNL 1.4 Assessment & Plan (09/22/2018 11:35 AM PACKAGING DESIGN ENGINEER): Has close follow up with his oncologist. His PSA was slightly elevated on last check. Hyperlipidemia 09/21/2017 Assessment & Plan (06/30/2018 9:38 AM CDT): His last lipid panel was within acceptable range; he will continue on a high intensity statin. Assessment & Plan (09/21/2017 11:34 AM PACKAGING DESIGN ENGINEER): Continue Lipitor 40 mg daily. Essential hypertension 07/20/2017 Assessment & Plan (10/30/2022 2:57 PM PACKAGING DESIGN ENGINEER): - Tight BP goals post-procedure - Continue home medications as indicated by BP goals as above, staggering overnight for gentle BP control Assessment & Plan (10/27/2018 9:54 AM PACKAGING DESIGN ENGINEER): Hypertension is unchanged. Dietary sodium restriction. Blood pressure will be reassessed in 4 weeks. Assessment & Plan (09/22/2018 11:38 AM PACKAGING DESIGN ENGINEER): Hypertension remains elevated. He is increasing his [...] today Assessment & Plan (09/21/2017 11:33 AM PACKAGING DESIGN ENGINEER): Blood pressure is well controlled today. Last visit we added HCTZ 12.5 mg daily. Continue current medications Assessment & Plan (08/10/2017 11:26 AM PACKAGING DESIGN ENGINEER): Blood pressure is not controlled. Add hydrochlorothiazide 12.5 mg p.o. daily. He is compliant with medications but always add salt to food which I advised him not to do that. Assessment & Plan (07/20/2017 9:19 AM PACKAGING DESIGN ENGINEER): Blood pressure remains uncontrolled. We will order renal Doppler ultrasound to rule out renal artery stenosis given the fact that he has peripheral vascular disease and coronary artery disease. I will increase amlodipine from 5-10 mg p.o. daily. If that does not control the blood pressure we will add hydrochlorothiazide 12.5 mg p.o. Daily. Coronary artery disease invo lving knik coronary artery of knik heart without angina pectoris 07/20/2017 Assessment & Plan (10/30/2022 9:58 AM PACKAGING DESIGN ENGINEER): - Continue home medications as able - Maintained on Brilinta as an outpatient; held 1 week prior to OR - Will discuss with surgery team when to safely resume post-procedure Assessment & Plan (10/27/2018 9:59 AM PACKAGING DESIGN ENGINEER): Coronary artery disease is improving with lifestyle modifications. Continue current treatment regimen. Cardiac status will be reassessed in 3 months. No chest pain. Minimal SOB. Continue asa, statin, brilinta Assessment & Plan (09/22/2018 11:36 AM PACKAGING DESIGN ENGINEER): Coronary artery disease is unchanged. Regular aerobic [...] BB. Assessment & Plan (09/21/2017 11:33 AM PACKAGING DESIGN ENGINEER): Continue aspirin, Brilinta, Toprol XL and atorvastatin. Assessment & Plan (08/10/2017 11:27 AM PACKAGING DESIGN ENGINEER): Continue Brilinta and aspirin. Asymptomatic. Assessment & Plan (07/20/2017 9:19 AM PACKAGING DESIGN ENGINEER): Continue aspirin, Brilinta, Lipitor , metoprolol PVD (peripheral vascular disease) 07/20/2017 Assessment & Plan (10/27/2018 9:21 AM PACKAGING DESIGN ENGINEER): S/P bilateral ALVA angioplasty; right EIA angioplasty/stent 11/21/14. S/P aortoiliac angioplasty/stent 05/28/09. Continues on asa, statin and brilinta Assessment & Plan (09/21/2017 11:34 AM PACKAGING DESIGN ENGINEER): He follows up with vascular surgery at [facility] Assessment & Plan (08/10/2017 11:27 AM PACKAGING DESIGN ENGINEER): Renal ultrasound suggest more than 60% stenosis in the right renal artery and infrarenal stenosis 50-70%. He follows up with Dr. Foley from vascular surgery at [facility] Assessment & Plan (07/20/2017 9:20 AM PACKAGING DESIGN ENGINEER): Patient will follow up with Dr. Foley from vascular surgery. He does have some claudication when he walks. 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 Has stopped caffeine intake. Has [...] implant or graft 6 02/09/2019 Atherosclerosis of knik artery of extremity 04/15/20 16 02/09/2019 Assessment & Plan (09/22/2018 11:26 AM PACKAGING DESIGN ENGINEER): 80% circumflex s/p RICHARD. 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 {plan; hypertension for POC:1319261355} Blood pressure will be reassessed {plan; follow-up 2 weeks/4weeks/3months:[id number]}. Increase amolodipine to 10 mg Continue all [...] Description 12/09/2024 1:00 PM CDT Office Visit [facility] [address] [place] [phone] Kay Ward NP Coronary artery disease of knik artery of knik heart with stable angina pectoris (Primary Dx); Orthostatic hypotension; LVH (left ventricular hypertrophy); PVD (peripheral vascular disease); Preoperative cardiovascular examination 11/10/[address] [facility] Home Care Services [address] [facility] [address] [place] [address] Cheryl Bundy 11/09/2024 7:30 AM CDT - 11/09/2024 10:00 AM CDT Surgery [facility] Operating Room [address] [place] [address] Kami Meneses MD Cystoscopy 11/09/2024 7:30 AM CDT Anesthesia Event [facility] Operating Room [address] [place] [phone] Lai Gregg DO [place], Justin Kyle, CRNA 11/09/2024 5:14 AM CDT - 11/12/2024 2:30 PM CDT Hospital Encounter [address] [phone] Kami Meneses MD Intrinsic urethral sphincter deficiency (Primary Dx) Discharge Disposition: Discharge to home, home health skilled care 10/26/2024 12:45 PM PACKAGING DESIGN ENGINEER Pre-Admission Testing [facility] Pre Anesthesia Testing [address] [place] [address] Stress incontinence 10/20/2024 10:30 AM PACKAGING DESIGN ENGINEER Office Visit [facility] Medical Group Cardiology [address] [place] [address] Kay Ward NP Coronary artery disease of knik artery of knik heart with stable angina pectoris (Primary Dx); Preoperative cardiovascular examination; Orthostatic hypotension; LVH (left ventricular hypertrophy); PVD (peripheral vascular disease) from Last 3 Months Immunizations Immunization Administration [...] ARTERIAL STENT GRAFT 08/31/2008 - 08/30/2009 bilateral AVLA angioplasy and right EIA angioplasty/stent '15, aortoiliac stent '09. CATARACT EXTRACTION W/ INTRAOCULAR LENS IMPLANT Right ANGIO SELECTIVE CAROTID PETAL SHAPER HAND RIGHT 10/15/2022 Right MELANOMA RESECTION 12/17/2014 Right [...] kidney disease) stage 3, GFR 30-59 ml/min ([facility]) PVD (peripheral vascular disease) Family History Medical [...] 0.6 oz pu re alcohol) [facility] Utilities Answer Date Recorded In the past 12 months has [employer], gas, oil, or water [employer] threatened to shut off services in your [...] week 11/11/2024 How often do you attend [facility] or baptism services? More than 4 times per year [...] any time in the past 12 [facility], were you homeless or living in a snf (including now)? No 11/11/2024 Personal Safety Answer Date Recorded Have you ever been in or are you currently in a harmful physical or emotional relationship or is someone making you feel afraid or unsafe? Denies 11/09/2024 Sex and Gender Information Value Date Recorded Sex Assigned at Not on file Legal Sex Male 12:32 AM PACKAGING DESIGN ENGINEER Gender Identity Not on file Sexual Orientation [...] history exists Medical Devices Implanted Type Area Hospice Rn Device Identifier Shelf Expiration Date Model / [...] 61 to 70 cm pressure-regulating balloon. [facility] [employer] Sandra Vascu-Guard 8x.8cm Peripheral Patch Vascular Bovine Pericardium [id number]-[id number] - [id number] Implanted:Qty: 1 on 10/30/2022 by Aniceto Foley MD at [facility] Right: Carotid [facility] Sandra [id number] 07/09/2023 [id number] / / [id number] [employer] Sandra Ams 800 Kit Accessory Sterile Disposable Latex Free Urinary [id number] - [id number] Implanted:Qty: 1 on 11/09/2024 by Kami Meneses MD at [facility] N/A: Urethra [employer] Sandra [id number] 03/09/2029 [id number] / / [id number] [employer] Sandra Cuff Urethral Ams 800 Inhibizone 3.5cm [id number] - [id number] Implanted:Qty: 1 on 11/09/2024 by Kami Meneses MD at [facility] N/A: Urethra [employer] Sandra [id number] 02/22/2026 [id number] / / [id number] [employer] Sandra Ams 800 Pressure Balloon Sphincter 61-70cu Cm Implant Urological [id number] - [id number] Implanted:Qty: 1 on 11/09/2024 by Kami Meneses MD at [facility] N/A: Abdomen [employer] Sandra [id number] 03/20/2029 [id number] / / [id number] [employer] Sandra Ams 800 Control Pump Sphincter Implant Urological Inhibizone [id number] - [id number] Implanted:Qty: 1 on 11/09/2024 by Kami Meneses MD at [facility] N/A: Scrotum [employer] Sandra [id number] 02/15/2026 [id number] / / [id number] Procedures Procedure Name Priority Date/Time Associated Diagnosis [...] DEVICE Routine 11/09/2024 9 :20 AM CDT MA AN PROCEDURE PLACEHOLDER Routine 11/09/2024 7:54 AM CDT MA AN ELECTIVE ENDOTRACHEAL AIRWAY Routine 11/09/2024 7:54 AM CDT ARTIFICIAL URINARY SPHINCTER 11/09/2024 7:32 AM CDT Stress incontinence CYSTOSCOPY 11/09/2024 7:32 AM CDT Stress incontinence POCT GLUCOSE DEVICE Routine 11/09/2024 6 :43 AM CDT URINALYSIS, MICROSCOPIC ONLY Routine 10/26/2024 1:43 PM PACKAGING DESIGN ENGINEER Stress incontinence URINALYSIS AND REFLEX TO MICROSCOPIC AND CULTURE Routine 10/26/2024 1:43 PM PACKAGING DESIGN ENGINEER Stress incontinence LIPID PANEL Routine 03/22/2024 10:23 AM CDT Coronary artery disease involving knik coronary artery of knik heart without angina pectoris CTA ABDOMINAL AORTA AND BILATERAL ILIOFEMORAL RUNOFF Schedule Routine, Read Routine (OP Routine) 12/15/2023 1:56 PM CDT PVD (peripheral vascular disease) HEMOGLOBIN A1C Routine 09/22/2023 12:19 PM PACKAGING DESIGN ENGINEER Prostate cancer (HCC) from Last 3 Months or Most Recently Relevant to Health Maintenance Results * POCT glucose (11/12/2024 11:38 AM CDT) [facility] Glucose, POC 151 70 - 199 mg/dL Comment: For Glucose values <35 mg/dl when Hematocrit is >60 mg/dl,the test may not accurately detect significant hypoglycemia,and testing in the Laboratory should be considered if clinically indicated. Blood 11/12/2024 11:3 8 AM CDT 11/12/2024 11:38 AM CDT Kami Gleason MD LAB POCT ORDERABLES - DEVICE F inal Result [facility] [address] Department [place] [address] * (ABNORMAL) eGFR (11/12/2024 8:15 AM CDT) [facility] eGFR 59(L) >=60 mL/min/1. 73 m2 [...] Coronado NP LAB BLOOD ORDERABLES nal Result [facility] [address] Department [place] [address] * (ABNORMAL) Basic metabolic panel [...] patient with classic symptoms of hyperglycemia or hyperglyc [id number]|2025-01-15 10:45:00|2025-01-15 10:45:00|XMS_ITS|MARVA FARR|External Medical Summaries|[id number]|" Encounter Summary Created on: January 15, 2025 Derek Freeman : 1950 Sex: Male Author Organization [facility] Address [address] [place] [address] Phone Care Team Providers Care Visualization Developer Name Role Phone Fuentes Orellana MD Primary Care Provider [phone] Itz Iyer MD Unavailable [phone] Lupillo Davenport MD Unavailable [phone] Lupillo Davenport MD Unavailable [phone] Shawnee Mckinney MD Unavailable [phone] Chicho Clayton MD Unavailable Newton Weeks MD Unavailable [phone] Maria Guadalupe Palacios RN Unavailable Unava ilable Lupillo Davenport MD Unavailable [phone] Itz Iyer MD Unavailable +[phone] Itz Iyer MD Unavailable +[phone] Itz Iyer MD Unavailable [phone] Itz Iyer MD Unavailable +[phone] Itz Iyer MD Unavailable +[phone] Itz Iyer MD Unavailable [phone] Danis Meza NP Unavailable [phone] Antonette Owens NP Unavailable Aniceto Foley MD Unavailable Encounter Details Date Type Department [...] on file Legal Sex Male 12:32 AM PACKAGING DESIGN ENGINEER Gender Identity Not on file Sexual Orientation [...] on filedocumented in this encounter Care Teams Visualization Developer Relationship Specialty Start Date End Date Fuentes Orellana MD PCP - General 11/28/16 Itz Iyer MD [address] [facility] [address] [place] [address] Consulting Physician Urology 05/31/18 Lupillo Davenport MD [address] [place] [address] Referring Physician Radiation Oncology 05/31/18 Lupillo Davenport MD [address] [place] [address] Referring Physician Radiation Oncology 05/31/18 Shawnee Mckinney MD [address] [place] [address] Referring Physician Urology 06/03/18 Chicho Clayton MD [address] [facility] [address] [place] [address] Medical Oncologist/Hematologis t Medical Oncology 06/07/18 Newton Weeks MD [address] [facility] [address] [place] [address] Referring Physician Radiation Oncology 06/07/18 Maria Guadalupe Palacios RN Registered Nurse 06/10/18 Lupillo Davenport MD [address] [place] [address] [place] [address] Referring Physician Radiation Oncology 06/16/18 Itz Iyer MD [address] [address] Consulting Physician Urology 06/17/18 06/17/18 Itz Iyer MD [address] [address] Consulting Physician Urology 06/18/18 06/18/18 Itz Iyer MD [address] [address] Consulting Physician Urology 06/18/18 06/18/18 Itz Iyer MD [address] [place] [address] Consulting Physician Urology 06/22/18 06/22/18 Itz Iyer MD [address] [address] Consulting Physician Urology 07/01/18 07/01/18 Itz Iyer MD [address] [place] [address] Consulting Physician Urology 07/06/18 07/06/18 Danis Meza NP [address] [employer] [address] [place] [address] Nurse Practitioner Urology 10/06/22 Antonette Owens NP [address] [employer] [place] [address] Nurse Practitioner Cardiovascular Disease 10/06/22 Aniceto Foley MD [address] [place] [address] Surgeon Vascular Surgery 10/31/22 documented as of this encounter "
--- OUTSIDE RECORDS SUMMARY | 2025-01-15 10:45 | XMS_ITS | Encounter Summary ---
Author Organization [facility] Address [address] [place] [address] Phone Care Team Providers Care Screen Stretcher Name Role Phone Fuentes Orellana MD Primary Care Provider Brent Dickinson DO Unavailable [phone] Faviola Jiménez AXLE INSPECTOR, CONTRACT AGENT Unavailable Shawnee Mckinney MD Unavailable Chicho Clayton MD Unavailable Lai Lambert AXLE INSPECTOR, CONTRACT AGENT Unavailable [phone] Kami Meneses MD Unavailable [phone] Anette Bond MD Unavailable [phone] Kay Gordon AXLE INSPECTOR, CONTRACT AGENT Unavailable Kami Meneses MD Unavailable [phone] Kami Meneses MD Unavailable [phone] Encounter Details Date Type Department Care Team (Late st Contact Info) Description 01/13/2025 Telephone [facility] [address] [place] [address] Kami Meneses MD [address] [address] Social History Tobacco Use Types Packs/Day Years [...] Job 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 Date 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 Also states he has been having rectum pain. Tylenol helps at times. He was made aware that culture was negative. Please advise documented in this encounter Plan of Treatment Upcoming Encounters Date Type Department Care Team (Late st Contact Info) Description 01/27/2025 2:15 PM CDT Office Visit [facility] [address] [place] [address] Kami Meneses MD [address] [address] documented as of this encounter Visit Diagnoses Not on filedocumented in this encounter Care Teams Screen Stretcher Relationship Specialty Start Date End Date Fuentes Orellana MD [address] [place] [address] PCP - General Family Medicine 11/6/15 Brent Dickinson DO [address] [place] [address] Gastroenterology 06/27/16 Faviola Jiménez APRN, CONTRACT AGENT [address] [place] [address] Nurse Practitioner Advanced Practice Nurse 07/22/16 Shawnee Mckinney MD [address] [facility] [address] [place] [address] Urologist Urology 06/07/19 Chicho Clayton MD [address] [facility] [address] [place] [address] Oncology 06/13/19 Lai Lambert APRN, CONTRACT AGENT [address] [place] [address] Nurse Practitioner Advanced Practice Nurse 02/10/23 Kami Meneses MD [address] [address] Consulting Physician Urology 06/16/23 Anette Bond MD [address] [place] [address] Consulting Physician Gastroenterology 12/25/22 Kay Gordon APRN, CONTRACT AGENT [address] [place] [address] Nurse Practitioner Advanced Practice Nurse 06/16/24 Kami Meneses MD #[address], [facility] [address] [place] [address] Consulting Physician Urology 08/19/24 Kami Meneses MD #[address], [facility] [address] [place] [address] Consulting Physician Urology 01/06/25 documented as of this encounter
--- OUTSIDE RECORDS SUMMARY | 2025-01-15 10:45 | XMS_ITS | Referral Summary ---
Author Organization [facility] [address] [facility] [address] Address [address] [place] [address] Care Team Providers Care Tenter Feeder Name Role Phone Fuentes Orellana MD Primary Care Provider Itz Iyer MD Unavailable [phone] Shawnee Mckinney MD Unavailable [phone] Chicho Clayton MD Unavailable Maria Guadalupe Palacios RN Unavailable Unava ilable Lupillo Davenport MD Unavailable [phone] Danis Meza QUARRYING MANAGER Unavailable Antonette Owens NP Unavailable Aniceto Foley MD Unavailable [phone] Encounters Date Type Department Care Team Description 12/09/2024 1:00 PM CDT Office Visit [facility] Medical Group Cardiology [address] [place] [address] Kay Ward NP 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 (Primary Dx); Orthostatic hypotension; LVH (left ventricular hypertrophy); PVD (peripheral vascular disease); Preoperative cardiovascular examination 11/09/2024 5:14 AM CDT - 11/12/2024 2:30 PM CDT Hospital Encounter [id number] [place] [address] Kami Meneses MD Intrinsic urethral sphincter deficiency (Primary Dx) Discharge Disposition: Discharge to home, home health skilled care 11/10/2024 Telephone [facility] Home Care Services [address] [place] [address] Gregor Cheryl 11/09/2024 7:30 AM CDT - 11/09/2024 10:00 AM CDT Surgery [facility] Operating Room [address] [place] [phone] Kami Meneses MD Cystoscopy 11/09/2024 7:30 AM CDT Anesthesia Event [facility] Operating Room [address] [place] [phone] Lai Gregg DO [place], Justin Kyle, TSERING 10/26/2024 12:45 PM CARD TABLE ATTENDANT Pre-Admission Testing [facility] Pre Anesthesia Testing [address] [place] [phone] Stress incontinence 10/20/2024 10:30 AM CARD TABLE ATTENDANT Office Visit [facility] Medical Group Cardiology [address] [place] [address] Kay Ward NP 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 (Primary Dx); Preoperative cardiovascular examination; Orthostatic hypotension; LVH (left ventricular hypertrophy); PVD (peripheral vascular disease) from Last 3 Months Allergies No known [...] immediate release tabletIndicatio ns:Coronary artery disease involving [place] coronary artery of [place] heart without angina pectoris Take 1 tablet [...] (10/21/2022): Added automatically from request for surgery [id number] Assessment & Plan (10/30/2022 2:56 PM CARD TABLE ATTENDANT): - OR 3/2 for planned R CEA - OU status, Q2h NV/VS monitoring - Bedrest today, OOB/PT POD #1 - SBP goal 100-160, nicardipine for elevated BP - Continue aspirin and statin - Plan to stager home medications and resume overnight Atherosclerosis of [place] ar teries of extremities with intermittent claudication, bilateral legs 06/03/2022 Melanoma 01/10/2021 Anxiety 01/10/2021 DM (diabetes mellitus) 01/10/2021 Assessment & Plan (10/30/2022 9:59 AM CARD TABLE ATTENDANT): - A1c 7.6% 10/2022 - SSI while inpatient - CC diet when eating Elevated left ventricular end-diastolic pressure (LVEDP) 11/15/2019 Encounter for surgical after care following surgery of circulatory system 05/20/2019 Prostate cancer 09/10/2018 Assessment & Plan (10/27/2018 9:53 AM CARD TABLE ATTENDANT): Follows with urology, has his PSA monitored it is increasing, but still WNL 1.4 Assessment & Plan (09/22/2018 11:35 AM CARD TABLE ATTENDANT): Has close follow up with his oncologist. His PSA was slightly elevated on last check. Hyperlipidemia 09/21/2017 Assessment & Plan (06/30/2018 9:38 AM CDT): His last lipid panel was within acceptable range; he will continue on a high intensity statin. Assessment & Plan (09/21/2017 11:34 AM CARD TABLE ATTENDANT): Continue Lipitor 40 mg daily. Essential hypertension 07/20/2017 Assessment & Plan (10/30/2022 2:57 PM CARD TABLE ATTENDANT): - Tight BP goals post-procedure - Continue home medications as indicated by BP goals as above, staggering overnight for gentle BP control Assessment & Plan (10/27/2018 9:54 AM CARD TABLE ATTENDANT): Hypertension is unchanged. Dietary sodium restriction. Blood pressure will be reassessed in 4 weeks. Assessment & Plan (09/22/2018 11:38 AM CARD TABLE ATTENDANT): Hypertension remains elevated. He is increasing his [...] today Assessment & Plan (09/21/2017 11:33 AM CARD TABLE ATTENDANT): Blood pressure is well controlled today. Last visit we added HCTZ 12.5 mg daily. Continue current medications Assessment & Plan (08/10/2017 11:26 AM CARD TABLE ATTENDANT): Blood pressure is not controlled. Add hydrochlorothiazide 12.5 mg p.o. daily. He is compliant with medications but always add salt to food which I advised him not to do that. Assessment & Plan (07/20/2017 9:19 AM CARD TABLE ATTENDANT): Blood pressure remains uncontrolled. We will order renal Doppler ultrasound to rule out renal artery stenosis given the fact that he has peripheral vascular disease and coronary artery disease. I will increase amlodipine from 5-10 mg p.o. daily. If that does not control the blood pressure we will add hydrochlorothiazide 12.5 mg p.o. Daily. Coronary artery disease invo lving cous[place]ta coronary artery of [place] heart without angina pectoris 07/20/2017 Assessment & Plan (10/30/2022 9:58 AM CARD TABLE ATTENDANT): - Continue home medications as able - Maintained on Brilinta as an outpatient; held 1 week prior to OR - Will discuss with surgery team when to safely resume post-procedure Assessment & Plan (10/27/2018 9:59 AM CARD TABLE ATTENDANT): Coronary artery disease is improving with lifestyle modifications. Continue current treatment regimen. Cardiac status will be reassessed in 3 months. No chest pain. Minimal SOB. Continue asa, statin, brilinta Assessment & Plan (09/22/2018 11:36 AM CARD TABLE ATTENDANT): Coronary artery disease is unchanged. Regular aerobic [...] BB. Assessment & Plan (09/21/2017 11:33 AM CARD TABLE ATTENDANT): Continue aspirin, Brilinta, Toprol XL and atorvastatin. Assessment & Plan (08/10/2017 11:27 AM CARD TABLE ATTENDANT): Continue Brilinta and aspirin. Asymptomatic. Assessment & Plan (07/20/2017 9:19 AM CARD TABLE ATTENDANT): Continue aspirin, Brilinta, Lipitor , metoprolol PVD (peripheral vascular disease) 07/20/2017 Assessment & Plan (10/27/2018 9:21 AM CARD TABLE ATTENDANT): S/P bilateral ALVA angioplasty; right EIA angioplasty/stent 11/21/14. S/P aortoiliac angioplasty/stent 05/28/09. Continues on asa, statin and brilinta Assessment & Plan (09/21/2017 11:34 AM CARD TABLE ATTENDANT): He follows up with vascular surgery at [facility] Assessment & Plan (08/10/2017 11:27 AM CARD TABLE ATTENDANT): Renal ultrasound suggest more than 60% stenosis in the right renal artery and infrarenal stenosis 50-70%. He follows up with Dr. Foley from vascular surgery at [facility] Assessment & Plan (07/20/2017 9:20 AM CARD TABLE ATTENDANT): Patient will follow up with Dr. Foley from vascular surgery. He does have some claudication when he walks. Intrinsic urethral sphincter deficiency 06/08/20 15 Resolved Problems Problem Noted Date Diagnosed Date Resolved Date Dizzinesses 10/27/2018 02/09/2019 Assessment & Plan (10/27/2018 10:17 AM CARD TABLE ATTENDANT): Persistent dizziness. Has stopped caffeine intake. Has [...] implant or graft 6 02/09/2019 Atherosclerosis of [place] artery of extremity 04/15/20 16 02/09/2019 Assessment & Plan (09/22/2018 11:26 AM CARD TABLE ATTENDANT): 80% circumflex s/p RICHARD. Moderate 30 % LAD with bridging Impotence of organic origin 09/18/2015 02/09/2019 Urinary tract infection 01/18/201501/29 Incontinence 01/18/2015 02/09/2019 Stricture, urethra 07/31/2011 9 Overview (12/10/2017): Description: Dilation 06/09/11 Nocturia 11/28/2010 02/09/2019 Hypertension 05/16/2009 02/09/2019 Assessment & Plan (10/27/2018 10:11 AM CARD TABLE ATTENDANT): Hypertension is {improving/stable/worsenin}. {plan; hypertension for POC:0625346228} Blood pressure will be reassessed {plan; follow-up 2 weeks/4weeks/3months:[id number]}. Increase amolodipine to 10 mg Continue all [...] drink = 0.6 oz pu re alcohol) [facility] Utilities Answer Date Recorded In the past 12 months has [employer], gas, oil, or water [facility] threatened to shut off services in your [...] week 11/11/2024 How often do you attend [facility] or oriental orthodox services? More than 4 times per year 11/11/2024 Do you belong to any clubs o r organizations such as sikh groups, unions, fraternal or athletic groups, or [...] No 11/11/2024 Housing Stability Vital Sign Answer Pricne e Recorded In the last 12 months, was t here a time when you were not able to pay the mortgage or rent on time? No 11/11/2024 Number of Times Moved in the Last Year Not on fi le 11/11/2024 At any time in the past 12 m [facility], were you homeless or living in a senior care (including now)? No 11/11/2024 Personal Safety Answer Date Recorded Have you ever been in or are you currently in a harmful physical or emotional relationship or is someone making you feel afraid or unsafe? Denies 11/09/2024 Sex and Gender Information Value Date Recorded Sex Assigned at Not on file Legal Sex Male 12:32 AM CARD TABLE ATTENDANT Gender Identity Not on file Sexual Orientation [...] on file Medical Devices Implanted Type Area Livestock Nutritionist Device Identifier Shelf Expiration Date Model / [...] and 61 to 70 cm pressure-regulating balloon. Blinpick Vascu-Guard 8x.8cm Peripheral Patch Vascular Bovine Pericardium Vg-[id number] - [id number] Implanted:Qty: 1 on 10/30/2022 by Aniceto Foley MD at [facility] Right: Carotid [employer]ahona[employer]cutec [id number] 07/09/2023 [id number]-[id number] / / [id number] Adomos Ams 800 Kit Accessory Sterile Disposable Latex Free Urinary [id number] - [id number] Implanted:Qty: 1 on 11/09/2024 by Kami Meneses MD at [facility] N/A: Urethra [employer] Sandra [id number] 03/09/2029 [id number] / / [id number] [employer] Sandra Cuff Urethral Ams 800 Inhibizone 3.5cm [id number] - [id number] Implanted:Qty: 1 on 11/09/2024 by Kami Meneses MD at [facility] N/A: Urethra [employer] Sandra [id number] 02/22/2026 [id number] / / [id number] [employer] Sandra Ams 800 Pressure Balloon Sphincter 61-70cu Cm Implant Urological [id number] - [id number] Implanted:Qty: 1 on 11/09/2024 by Kami Meneses MD at [facility] N/A: Abdomen [employer] Sandra [id number] 03/20/2029 [id number] / / [id number] [employer] Sandra Ams 800 Control Pump Sphincter Implant Urological Inhibizone [id number] - [id number] Implanted:Qty: 1 on 11/09/2024 by Kami Meneses MD at [facility] N/A: Scrotum [employer] Sandra [id number] 02/15/2026 [id number] / / [id number] Procedures Procedure Name Priority Date/Time Associated Diagnosis [...] DEVICE Routine 11/09/2024 9 :20 AM CDT NE AN PROCEDURE PLACEHOLDER Routine 11/09/2024 7:54 AM CDT NE AN ELECTIVE ENDOTRACHEAL AIRWAY Routine 11/09/2024 7:54 AM CDT ARTIFICIAL URINARY SPHINCTER 11/09/2024 7:32 AM CDT Stress incontinence CYSTOSCOPY 11/09/2024 7:32 AM CDT Stress incontinence POCT GLUCOSE DEVICE Routine 11/09/2024 6 :43 AM CDT URINALYSIS, MICROSCOPIC ONLY Routine 10/26/2024 1:43 PM CARD TABLE ATTENDANT Stress incontinence URINALYSIS AND REFLEX TO MICROSCOPIC AND CULTURE Routine 10/26/2024 1:43 PM CARD TABLE ATTENDANT Stress incontinence LIPID PANEL Routine 03/22/2024 10:23 AM CDT Coronary artery disease involving cous[place]ta coronary artery of [place] heart without angina pectoris CTA ABDOMINAL AORTA AND BILATERAL ILIOFEMORAL RUNOFF Schedule Routine, Read Routine (OP Routine) 12/15/2023 1:56 PM CDT PVD (peripheral vascular disease) HEMOGLOBIN A1C Routine 09/22/2023 12:19 PM CARD TABLE ATTENDANT Prostate cancer (HCC) from Last 3 Months or Most Recently Relevant to Health Maintenance Results * POCT glucose (11/12/2024 11:38 AM CDT) [facility] Glucose, POC 151 70 - 199 mg/dL Comment: For Glucose values <35 mg/dl when Hematocrit is >60 mg/dl,the test may not accurately detect significant hypoglycemia,and testing in the Laboratory should be considered if clinically indicated. Blood 11/12/2024 11:3 8 AM CDT 11/12/2024 11:38 AM CDT us Kami Gleason MD LAB POCT ORDERABLES - DEVICE F inal Result [facility] [address] [place] [address] * (ABNORMAL) eGFR (11/12/2024 8:15 AM CDT) Pathologist [facility] eGFR 59(L) >=60 mL/min/1. 73 m2 Comment: [...] NP LAB BLOOD ORDERABLES Fi nal Result [facility] [address] Department [place] [address] * (ABNORMAL) Basic metabolic panel (11/12/2024 8:15 AM CDT) [facility] Sodium 138 135 - 145 mmol/L Potassium, pl 4.2 3.3 - 4.9 mmol/L [facility] Chloride 106 97 - 110 mmol/L [facility] CO2 21(L) 22 - 32 mmol/L [facility] Anion gap 11 2 - 15 mmol/L [facility] BUN 28(H) 6 - 25 mg/dL [facility] Creatinine 1.26 0.80 - 1.30 mg/dL [facility] Glucose 136 70 - 199 mg/dL [facility] Comment: Interpretive Data Fasting glucose >/= 126 [...] 2022. Calcium 9.2 8.5 - 10.3 mg/dL [facility] Blood 11/12/2024 8:15 AM CDT 11/12/2024 9:17 AM CDT us Kalina Coronado NP LAB BLOOD ORDERABLES Fi nal Result Performing Organization Address City/[facility]/ZIP Co de Phone Number [facility] [address] [email or web address] [address] * POCT glucose (11/12/2024 5:49 AM CDT) Glucose, POC 125 70 - 199 mg/dL Comment: For Glucose values <35 mg/dl when Hematocrit is >60 mg/dl,the test may not accurately detect significant hypoglycemia,and testing in the Laboratory should be considered if clinically indicated. Blood 11/12/2024 5:49 AM CDT 11/12/2024 5:49 AM CDT us Kami Gleason MD LAB POCT ORDERABLES - DEVICE F inal Result [facility] [address] [email or web address] [address] * (ABNORMAL) POCT glucose (11/11/2024 8:22 PM CDT) Glucose, POC 214(H) 70 - 199 mg/dL Comment: For Glucose values <35 mg/dl when Hematocrit is >60 mg/dl,the test may not accurately detect significant hypoglycemia,and testing in the Laboratory should be considered if clinically indicated. Blood 11/11/2024 8:2 2 PM CDT 11/11/2024 8:22 PM CDT [facility] LAB POCT ORDERABLES - DEVICE F inal Result Performing Organization Address [facility] de Phone Number [facility] [address] [facility] [employer] [place], [place] [id number] * POCT glucose (11/11/2024 5:14 PM CDT) Glucose, POC 127 70 - 199 mg/dL Comment: For Glucose values <35 mg/dl when Hematocrit is >60 mg/dl,the test may not accurately detect significant hypoglycemia,and testing in the Laboratory should be considered if clinically indicated. Blood 11/11/2024 5:14 PM CDT 11/11/2024 5:14 PM CDT [facility] MD LAB POCT ORDERABLES - DEVICE F inal Result Performing Organization Address [facility] de Phone Number [facility] [address] [place], [place] [id number] * POCT glucose (11/11/2024 11:29 AM CDT) Glucose, POC 144 70 - 199 mg/dL Comment: For Glucose values <35 mg/dl when Hematocrit is >60 mg/dl,the test may not accurately detect significant hypoglycemia,and testing in the Laboratory should be considered if clinically indicated. Specimen (Source) [id number]|2025-01-15 10:45:00|2025-01-15 10:45:00|XMS_ITS|BKG DAEMON|External Medical Summaries|[id number]|" Oncology Summary Created on: January 15, 2025 Derek Freeman : 1950 Sex: Male Author Organization [facility] [address] Address [address] [place] [address] Care Team Providers Care Tenter Feeder Name Role Phone Fuentes Orellana MD Primary Care Provider [phone] Itz Iyer MD Unavailable [phone] Shawnee Mckinney MD Unavailable [phone] Chicho Clayton MD Unavailable Maria Guadalupe Palacios RN Unavailable Unava ilable Lupillo Davenport MD Unavailable [phone] Danis Meza QUARRYING MANAGER Unavailable [phone] Antonette Owens NP Unavailable Aniceto Foley MD Unavailable [phone] Active Problems Problem Noted Date Diagnosed [...] (10/21/2022): Added automatically from request for surgery [id number] Assessment & Plan (10/30/2022 2:56 PM CARD TABLE ATTENDANT): - OR 3/2 for planned R CEA - OU status, Q2h NV/VS monitoring - Bedrest today, OOB/PT POD #1 - SBP goal 100-160, nicardipine for elevated BP - Continue aspirin and statin - Plan to stager home medications and resume overnight Atherosclerosis of [place] ar teries of extremities with intermittent claudication, bilateral legs 06/03/2022 Melanoma 01/10/2021 Anxiety 01/10/2021 DM (diabetes mellitus) 01/10/2021 Assessment & Plan (10/30/2022 9:59 AM CARD TABLE ATTENDANT): - A1c 7.6% 10/2022 - SSI while inpatient - CC diet when eating Elevated left ventricular end-diastolic pressure (LVEDP) 11/15/2019 Encounter for surgical after care following surgery of circulatory system 05/20/2019 Prostate cancer 09/10/2018 Assessment & Plan (10/27/2018 9:53 AM CARD TABLE ATTENDANT): Follows with urology, has his PSA monitored it is increasing, but still WNL 1.4 Assessment & Plan (09/22/2018 11:35 AM CARD TABLE ATTENDANT): Has close follow up with his oncologist. His PSA was slightly elevated on last check. Hyperlipidemia 09/21/2017 Assessment & Plan (06/30/2018 9:38 AM CDT): His last lipid panel was within acceptable range; he will continue on a high intensity statin. Assessment & Plan (09/21/2017 11:34 AM CARD TABLE ATTENDANT): Continue Lipitor 40 mg daily. Essential hypertension 07/20/2017 Assessment & Plan (10/30/2022 2:57 PM CARD TABLE ATTENDANT): - Tight BP goals post-procedure - Continue home medications as indicated by BP goals as above, staggering overnight for gentle BP control Assessment & Plan (10/27/2018 9:54 AM CARD TABLE ATTENDANT): Hypertension is unchanged. Dietary sodium restriction. Blood pressure will be reassessed in 4 weeks. Assessment & Plan (09/22/2018 11:38 AM CARD TABLE ATTENDANT): Hypertension remains elevated. He is increasing his [...] today Assessment & Plan (09/21/2017 11:33 AM CARD TABLE ATTENDANT): Blood pressure is well controlled today. Last visit we added HCTZ 12.5 mg daily. Continue current medications Assessment & Plan (08/10/2017 11:26 AM CARD TABLE ATTENDANT): Blood pressure is not controlled. Add hydrochlorothiazide 12.5 mg p.o. daily. He is compliant with medications but always add salt to food which I advised him not to do that. Assessment & Plan (07/20/2017 9:19 AM CARD TABLE ATTENDANT): Blood pressure remains uncontrolled. We will order renal Doppler ultrasound to rule out renal artery stenosis given the fact that he has peripheral vascular disease and coronary artery disease. I will increase amlodipine from 5-10 mg p.o. daily. If that does not control the blood pressure we will add hydrochlorothiazide 12.5 mg p.o. Daily. Coronary artery disease invo lving [place] coronary artery of [place] heart without angina pectoris 07/20/2017 Assessment & Plan (10/30/2022 9:58 AM CARD TABLE ATTENDANT): - Continue home medications as able - Maintained on Brilinta as an outpatient; held 1 week prior to OR - Will discuss with surgery team when to safely resume post-procedure Assessment & Plan (10/27/2018 9:59 AM CARD TABLE ATTENDANT): Coronary artery disease is improving with lifestyle modifications. Continue current treatment regimen. Cardiac status will be reassessed in 3 months. No chest pain. Minimal SOB. Continue asa, statin, brilinta Assessment & Plan (09/22/2018 11:36 AM CARD TABLE ATTENDANT): Coronary artery disease is unchanged. Regular aerobic [...] BB. Assessment & Plan (09/21/2017 11:33 AM CARD TABLE ATTENDANT): Continue aspirin, Brilinta, Toprol XL and atorvastatin. Assessment & Plan (08/10/2017 11:27 AM CARD TABLE ATTENDANT): Continue Brilinta and aspirin. Asymptomatic. Assessment & Plan (07/20/2017 9:19 AM CARD TABLE ATTENDANT): Continue aspirin, Brilinta, Lipitor , metoprolol PVD (peripheral vascular disease) 07/20/2017 Assessment & Plan (10/27/2018 9:21 AM CARD TABLE ATTENDANT): S/P bilateral ALVA angioplasty; right EIA angioplasty/stent 11/21/14. S/P aortoiliac angioplasty/stent 05/28/09. Continues on asa, statin and brilinta Assessment & Plan (09/21/2017 11:34 AM CARD TABLE ATTENDANT): He follows up with vascular surgery at [facility] Assessment & Plan (08/10/2017 11:27 AM CARD TABLE ATTENDANT): Renal ultrasound suggest more than 60% stenosis in the right renal artery and infrarenal stenosis 50-70%. He follows up with Dr. Foley from vascular surgery at [facility] Assessment & Plan (07/20/2017 9:20 AM CARD TABLE ATTENDANT): Patient will follow up with Dr. Foley [...] 02/09/2019 Assessment & Plan (10/27/2018 10:17 AM CARD TABLE ATTENDANT): Persistent dizziness. Has stopped caffeine intake. Has [...] implant or graft 6 02/09/2019 Atherosclerosis of [place] artery of extremity 04/15/20 16 02/09/2019 Assessment & Plan (09/22/2018 11:26 AM CARD TABLE ATTENDANT): 80% circumflex s/p RICHARD. Moderate 30 % LAD with bridging Impotence of organic origin 09/18/2015 02/09/2019 Urinary tract infection 01/18/201501/29 Incontinence 01/18/2015 02/09/2019 Stricture, urethra 07/31/2011 9 Overview (12/10/2017): Description: Dilation 06/09/11 Nocturia 11/28/2010 02/09/2019 Hypertension 05/16/2009 02/09/2019 Assessment & Plan (10/27/2018 10:11 AM CARD TABLE ATTENDANT): Hypertension is {improving/stable/worsenin}. {plan; hypertension for POC:[id number]} Blood pressure will be reassessed {plan; follow-up 2 weeks/4weeks/3months:[id number]}. Increase amolodipine to 10 mg Continue all [...] Foley from Vascular Surgery. Hypercholesterolemia 05/16/2009 019 "
--- OUTSIDE RECORDS SUMMARY | 2025-01-15 10:45 | XMS_ITS | Clinical Summary ---
Author Organization [facility] Address [address] [place] [address] Care Team Providers Care Horse Racing Manager Name Role Phone Fuentes Orellana MD Primary Care Provider [phone] Allergies No known active allergies Medications amLODIPine [...] age to complete this topic Insurance MEDICARE [facility] Care Teams Horse Racing Manager Relationship Specialty Start Date End Date Fuentes Orellana MD [address] [place] [id number] PCP - General FAMILY PRACTICE 11/29/22
--- OUTSIDE RECORDS SUMMARY | 2025-01-15 10:45 | XMS_ITS | CONTINUITY OF CARE DOCUMENT ---
Author Name malik gan Address Unknown Organization [facility] Address [address] [place] [address] [address] [place] [address] Phone [phone] Care Team Providers Care Portrait Painter Name Role Phone Dinh BARRERA, [facility] Unavailable
--- OUTSIDE RECORDS SUMMARY | 2025-01-15 10:45 | XMS_ITS | Encounter Summary ---
Author Organization [facility] Address [address] [place] [address] Phone Care Team Providers Care Manager Long Term Care Name Role Phone Fuentes Orellana MD Primary Care Provider [phone] Brent Dickinson DO Unavailable [phone] Faviola Jiménez FIELD HEALTH OFFICER, CASEWORK SUPERVISOR Unavailable Shawnee Mckinney MD Unavailable Chicho Clayton MD Unavailable Lai Lambert FIELD HEALTH OFFICER, CASEWORK SUPERVISOR Unavailable Kami Meneses MD Unavailable [phone] Anette Bond MD Unavailable [phone] Kay Gordon FIELD HEALTH OFFICER, CASEWORK SUPERVISOR Unavailable Kami Meneses MD Unavailable [phone] Kami Meneses MD Unavailable [phone] Reason for Visit * Reason Comments Medication Refill Encounter Details Date Type Department Care Team (Late st Contact Info) Description 11/12/2022 Refill [facility] - [facility]ology - [place] [address] [place] [address] Ingrid Mccloud Ashley, PAC [address] [place] [address] Medication Refill Social History Tobacco Use Types [...] 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 on 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 Not on file [...] 01/27/2025 2:15 PM CDT Office Visit [facility] [address] [place] [address] Kami Meneses MD [address], [address] [address] documented as of this encounter Visit Diagnoses Not on filedocumented in this encounter Care Teams Manager Long Term Care Relationship Specialty Start Date End Date Fuentes Orellana MD [address] [address] PCP - General Family Medicine 07/06/15 Brent Dickinson DO [address] [place] [address] Gastroenterology 06/27/16 Faviola Jiménez APRN, CASEWORK SUPERVISOR -[address] [place] [address] Nurse Practitioner Advanced Practice Nurse 07/22/16 Shawnee Mckinney MD [address] [facility] [address] [place] [address] Urologist Urology 06/07/19 Chicho Clayton MD [address] [facility] [address] [place] [address] Oncology 06/13/19 Lai Lambert APRN, CASEWORK SUPERVISOR [address] [place] [address] Nurse Practitioner Advanced Practice Nurse 02/10/23 Kami Meneses MD #[address] [address] Consulting Physician Urology 06/16/23 Anette Bond MD [address] [place] [address] Consulting Physician Gastroenterology 12/25/22 Kay Gordon APRN, CASEWORK SUPERVISOR [address] [place] [address] Nurse Practitioner Advanced Practice Nurse 06/16/24 Kami Meneses MD #[address] [address] Consulting Physician Urology 08/19/24 Kami Meneses MD #[address] [address] Consulting Physician Urology 01/06/25 documented as of this encounter
--- OUTSIDE RECORDS SUMMARY | 2025-01-15 10:47 | XMS_ITS | CONTINUITY OF CARE DOCUMENT ---
Author Name malik gan Address Unknown Organization [facility] Address [address] [place] [address] [address] [place] [address] Phone [phone] Care Team Providers Care Set Staff Fitter Name Role Phone Dinh BARRERA, Rust Unavailable [phone]
[2025-01-15 10:53] VITALS: BP 100/29; PULSE 70; RESP 20; TEMP 36.5; O2SAT 100
[2025-01-15 10:58] VITALS: BP 112/45; RESP 20; O2SAT 100
[2025-01-15 11:06] LABS: EDUAAPPEAR Clear; EDUABILI Negative (Negative); EDUABLOOD Trace (Negative); EDUACOLOR1 Yellow; EDUAGLUCOSE Negative (Negative); EDUAKETONE Negative (Negative); EDUALEUKO Negative (Negative); EDUANITRATE Negative (Negative); EDUAPH 5.5; EDUAPROTEIN 2+ (Negative); EDUAUROBILI 0.2
[2025-01-15 11:19] VITALS: BP 120/40; PULSE 64
[2025-01-15 11:21] VITALS: BP 112/47; BP 114/40; PULSE 66; PULSE 72
[2025-01-15 11:33] LABS: Glucose Point of Care 154 mg/dl (65-105)
== END 2025-01-15 11:53 | disposition short-term general hospital (02) ==
PROVIDERS: Emergency Provider Nurse Practitioner Family; PCP Family Medicine
DX: T81.89XA Other complications of procedures, not elsewhere classified, initial encounter (principal); R42 Dizziness and giddiness; R68.83 Chills (without fever); R30.0 Dysuria; R31.9 Hematuria, unspecified; R80.9 Proteinuria, unspecified; I12.9 Hypertensive chronic kidney disease with stage 1 through stage 4 chronic kidney disease, or unspecified chronic kidney disease; E11.22 Type 2 diabetes mellitus with diabetic chronic kidney disease; N18.9 Chronic kidney disease, unspecified; Z79.84 Long term (current) use of oral hypoglycemic drugs; I67.9 Cerebrovascular disease, unspecified; E11.42 Type 2 diabetes mellitus with diabetic polyneuropathy; E78.00 Pure hypercholesterolemia, unspecified; K21.9 Gastro-esophageal reflux disease without esophagitis; E78.5 Hyperlipidemia, unspecified; M19.90 Unspecified osteoarthritis, unspecified site; I25.10 Atherosclerotic heart disease of native coronary artery without angina pectoris; E11.39 Type 2 diabetes mellitus with other diabetic ophthalmic complication; H42 Glaucoma in diseases classified elsewhere; Z86.718 Personal history of other venous thrombosis and embolism; M10.9 Gout, unspecified; Z79.82 Long term (current) use of aspirin; Z86.2 Personal history of diseases of the blood and blood-forming organs and certain disorders involving the immune mechanism; Z87.891 Personal history of nicotine dependence; Z85.46 Personal history of malignant neoplasm of prostate; Z90.79 Acquired absence of other genital organ(s); Z95.5 Presence of coronary angioplasty implant and graft
CPT/HCPCS: 81003; 82948; 87070; 87075; 87205; 99215; G0463

== ENCOUNTER 2025-01-15 12:06 | Emergency (ER) | payer MEDICARE, SELFPAY ==
--- NOTE | ~2025-01-15 | CT_ITS ---
CLINICAL INDICATION: Abdominal, back and urethral pain. COMPARISON: 12/17/2024 and 12/15/2024. TECHNIQUE: Multiple contiguous axial images of the abdomen and pelvis were performed following the ad ministration of with 100 mL Omnipaque-350 intravenous contrast The dose-length product (DLP) was 523.59 mGy-cm. Automated exposure control and iterative reconstruction technique were employed. FINDINGS/OBSERVATIONS: Visualized lower thorax: The bilateral lung bases are clear. The heart is of normal size, without pericardial effusion. Liver: The liver demonstrates homogeneous enhancement and is not enlarged. Gallbladder and biliary system: The gallbladder is only minimally distended, and otherwise unremarkable. Pancreas: The pancreas enhances homogeneously without ductal dilatation. Spleen: The spleen enhances homogeneously and is not enlarged. Kidneys: The bilateral kidneys are atrophic, but enhance symmetrically without hydronephrosis or renal calculi . Adrenal glands: Unremarkable. Gastrointestinal tract: Colonic diverticulosis without surrounding inflammatory change. Fecal stasis within the colon. Appendix: The air-filled appendix is of normal caliber (axial series, images 118 through 129). Vasculature: Densely calcified atherosclerotic disease. Severe aortic stenosis, with an anterior to posterior dimension of less than 5 mm just above the aort ic bifurcation, unchanged dating back to 12/15/2024. Endovascular stent within the bilateral common iliac arteries. Lymph nodes: No pathologically enlarged or morphologically suspicious lymph nodes within the retroperitoneum or at the root of the mesentery. Pelvic structures: The bladder is only minimally distended, and otherwise unremarkable. The prostate gland is surgically absent. Body wall and musculoskeletal: Age appropriate degenerative disease within the lumbosacral spine. No lytic or blastic lesions. Implant reservoir within the left lower quadrant, also unchanged. Bilateral fat-containing inguinal hernias. IMPRESSION: Densely calcified atherosclerotic disease of the infrarenal abdominal aorta, as detailed above, uncha nged from prior. Bilateral fat-containing inguinal hernias. Reviewed, dictated and finalized at location A. IMPRESSION: Densely calcified atherosclerotic disease of the infrarenal abdominal aorta, as detailed above, unchanged from prior. Bilateral fat-containing inguinal hernias.
--- NOTE | 2025-01-15 12:09 | ECG_ITS ---
Test Date: 2025-01-15 12:26:05 Measurements Intervals [place] Rate: 65 P: 48 MD: 232 QRS: -1 QRSD: 101 T: 58 QT: 385 QTc: 403 Interpretive Statements SINUS RHYTHM WITH FIRST DEGREE AV BLOCK ABNORMAL ECG Compared to ECG 07/17/2024 20:41:32 First degree AV block now present Left ventricular hypertrophy no longer present ST (T wave) deviation no longer present Electronically Signed On 01-15-2025 13:32:53 CDT by Sanchez Morgan M.D.
[2025-01-15 12:10] VITALS: BP 139/52; PULSE 66; RESP 14; TEMP 36.6; O2SAT 100
--- NOTE | 2025-01-15 12:28 | ED_ITS ---
HPI - General Adult General Chief complaint: Recheck/Abnormal Lab/Rx Stated complaint: post op comp Time Seen by Provider: 01/15/25 12:25 Source: patient Mode of arrival: ambulatory Limitations: no limitations History of Present Illness HPI narrative: Patient presents with report concerns for postop complication. He had hernia repair performed on 01/03/[address] Nunez and noticed some slight drainage. He is also having some generalized abdominal pain. He also is having pain in his urethra which he states is not constant but rather intermittent. Occasionally he experiences it when he urinates but denies that it is present every time he urinates, i.e. no consistent dysuria. He also reports dizziness. He states at baseline he typically ambulates around his house without a cane but when he goes out he does tend to bring/use a cane as an assist device. He had been experiencing constipation after the surgery and so discontinued opiates and has been using Tylenol with the last dose occurring this morning. No fevers but he has been having chills. His last bowel movement was yesterday, no blood. Patient had initially presented to urgent care. VS documented were: Temp 97.7°, SpO2 100%, heart rate 70, respiratory rate 20, blood pressure 100/29. [facility] had performed a urine dip. Point of care glucose was reportedly 154 mg/dL. Patient has previously seen Dmitriy Iyer and Brenna but had an implantable urinary control system device (AMS 800TM) placed by urologist Dr Meneses (same urology group but in [place]) on 11/09/2024. He denies any penile discharge. No hematuria. Related Data Home Medications Medication Instructions Recorded Confirmed Last Taken Type nitroglycerin 0.3 mg sublingual 0.3 mg sublingual PRN PRN Chest 12/05/21 12/16/24 Unknown History tablet Pain ticagrelor 60 mg tablet (Brilinta) 60 mg PO BID 12/05/21 01/03/25 12/29/24 History aspirin 81 mg tablet,delayed 81 mg PO DAILY 12/06/21 12/16/24 03/14/22 09:00 History release (Adult Aspirin Regimen) chlorthalidone 25 mg tablet 25 mg PO DAILY 04/16/23 01/03/25 01/02/25 History rosuvastatin 40 mg tablet 40 mg PO DAILY 0201/03/25 01/02/25 History telmisartan 80 mg tablet 80 mg PO DAILY 06/08/24 01/03/25 01/02/25 History amlodipine 5 mg tablet 5 mg PO DAILY 09/29/24 01/03/25 01/03/25 History metoprolol tartrate 25 mg tablet 25 mg PO Q12H 12/16/24 01/03/25 01/03/25 History vit B3 20 mg-B5 5 mg-B6 2 mg-B7 75 1 tablet PO DAILY 12/16/24 01/03/25 12/29/24 History [id number] chew tablet Allergies Allergy/AdvReac Type Severity Reaction Status Date / Time dapagliflozin (From Farxiga) AdvReac Severe Hallucinati Verified 01/15/25 10:49 ng metformin AdvReac Severe Diarrhea Verified 01/15/25 10:49 semaglutide (From Ozempic) AdvReac Intermediate Confusion Verified 01/15/25 10:49 [facility] Past Medical History Medical History (Updated 01/16/25 @ 06:38 by Tonie Webster MD) Hard of hearing reads lips Hypertension Anxiety SOB (shortness of breath) Hyponatremia Cerebrovascular disease Diabetic polyneuropathy Lumbar spine pain BMI 27.0-27.9,adult Chronic pain Spasmodic bladder Trochanteric bursitis, left hip Trochanteric bursitis, right hip Heart disease History of prostate cancer Arthritis History of blood clots Carpal tunnel syndrome on both sides Overweight BMI 26.0-26.9,adult Microscopic colitis Dysphagia BMI 26.0-26.9,adult BMI between 19-24,adult Right shoulder pain Left shoulder pain BMI 25.0-25.9,adult 1st MTP arthritis Depression High cholesterol Shortness of breath Wears glasses Light headedness BMI 25.0-25.9,adult GERD (gastroesophageal reflux disease) HLD (hyperlipidemia) HTN (hypertension) Collagenous colitis Adenomatous colon polyp Tendinitis of both rotator cuffs Groin discomfort CAD (coronary artery disease) Carotid stenosis, asymptomatic h/o intracranial cerebral stenosis, evaluated at [place] 05/2019, thought not to be symptomatic cont med tx. Glaucoma Personal history of DVT (deep vein thrombosis) Stenosis of infrarenal abdominal aorta due to arteriosclerosis Says his aorta is mildly enlarged Gout (~08/2019) Prostate cancer Anemia Type 2 diabetes mellitus without complications Surgical History Surgical History H/O umbilical hernia repair 01/03/25; Dr Nunez; 6.[address] hernia patch Status post urinary system surgery AMS 800TM device placed 11/09/24 Dr Meneses (urologist [place] - same urology group as at [place]) Hx of endarterectomy H/O carotid endarterectomy (~10/2022) History of rotator cuff surgery History of angioplasty History of cataract surgery History of colonoscopy 2020 S/P arthroscopic surgery of left knee H/O rectal polypectomy H/O cystoscopy History of prostatectomy Had prostate cancer, status post prostatectomy and later radiation therapy. Has an implanted device to help with urinary incontinence. H/O cardiac catheterization H/O heart artery stent Family History Family History Father , of lung cancer age 83 Hypertension Lung cancer Sibling Hypertension Mother Family history of malignant neoplasm of breast in first degree relative Breast cancer of breast cancer age 37 Sibling No problems noted. Other Diabetes mellitus Family history of cardiovascular disease Family history of elevated blood lipids Family history of malignant neoplasm Social History Social History (Updated 01/16/25 @ 06:43 by Tonie Webster MD) Social History: The patient has 2 sons and is . He does not have a durable power contracts attorney. Wishes to be a full code. 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 Uses cane/assist device when out but not always at home. Smoking packs per day: 1 Smoking cigarettes per day: 20.0 Years smoked: 15 Smoking pack-years: 15.00 Smoking status: Unknown if ever smoked Tobacco type: cigarettes Second hand tobacco smoke exposure: No Smoking end date: 08/31/82 Alcohol intake: unknown Drinks per week: 14 Alcohol use details: 2-3 per day beer Substance use: never Substance use type: does not use Other substance usage details: no beer in over a week; no marijuana in 9 months Do You Feel Safe in your Home?: Yes Lack of Transportation: No Lack of Food: Never True Current Housing: I Have Housing Concerned About Future Housing: No Difficulty Paying Gas/Electric Bills: No Difficulty Paying for Meds: No Currently Unemployed: No Education: Trade/Vocational Certificate Difficulty w/ Childcare or Family Care: No Living arrangements: alone Occupation/Education: retired Additional occupation/education comments: 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 Gender identity (if verbalized by the patient): Male Spiritual care concerns: No Agree to blood products: Yes Exam 2 Narrative: GENERAL: Well-appearing, well-nourished, and in no acute distress. HEAD: Normocephalic, atraumatic. EYES: Non injected, non icteric ENT: Nares clear, no rhinorrhea or epistaxis. Moist mucous membranes. Hard of hearing but reads lips if spoken to slowly and at close range. NECK: Supple. CHEST: Speaking in full sentences. No respiratory distress. HEART: Regular rate and rhythm. . ABDOMEN: Soft, nondistended. No tenderness to palpation throughout. Surgical sites well healing, scant purulent drainage on gauze but sites without erythema, induration. No rigidity/guarding. not peritoneal. EXTREMITIES: Normal range of motion. No lower extremity edema. SKIN: Warm, dry. : No penile discharge or scrotal edema. No tenderness to urethral meatus. NEURO: No focal deficits. Alert and oriented x3. Mild dysarthria due to hard of hearing but easily understandable. Ambulates with steady gait. No antalgia. Bears weight appropriately. PSYCH: Normal mood and affect. Course Vital Signs Vital signs: Vital Signs Temperature 97.8 F 01/15/25 12:10 Pulse Rate 66 01/15/25 12:10 Respiratory Rate 14 01/15/25 12:10 Blood Pressure 139/52 L 01/15/25 12:10 Pulse Oximetry 100 01/15/25 12:10 Oxygen Delivery Room Air 01/15/25 12:10 Temperature 97.8 F 01/15/25 12:10 Pulse Rate 67 01/15/25 16:23 Respiratory Rate 16 01/15/25 16:23 Blood Pressure 139/64 01/15/25 16:23 Pulse Oximetry 100 01/15/25 16:23 Oxygen Delivery Room Air 01/15/25 12:10 Medical Decision Making [facility] Narrative Medical decision making narrative: This is a he pleasant 74-year-old male who presents with concern for postoperative complication. He noticed some drainage coming from his surgical sites status post hernia repair on 01/03/[address] Nunez. He is also having some slight abdominal pain. He was experiencing constipation in the setting of opiate use but has switched to taking Tylenol. He is also experiencing intermittent pain in his urethral and has a history with urinary control system device implanted 11/09/2024. He also reports being dizzy. In the emergency department he is afebrile with acceptable vital signs. Diastolic blood pressure slightly low however mean arterial pressure approximately 80mmHg. Given consistently low DBP (here and at ) though, and dark appearance of blood visualized by me during obtaining labs, will give small bolus of IV fluids, though does not appear markedly dehydrated/hypovolemic. Patient speaks with slight dysarthria due to being hard of hearing, baseline. No leukocytosis. Platelets are also normal. His normocytic anemia stable/chronic. Urine with 1+ protein but otherwise no evidence of infection. Hyperglycemia without anion gap or evidence of acidosis. Creatinine is at/improved from baseline, consistent with CKD. Patient is reassessed approximately 3:30 p.m. and he states that his abdominal pain is resolved and the pain in his urethra is only a 1 or 2/10. His dizziness has been better while lying in the stretcher. Attempted to ambulate patient and I did observe him doing so comfortably. He states he felt only slightly lightheaded but otherwise doing better. We discussed that he could trial a short course of Pyridium for the urethral pain. He has used this before and is aware of the side effects. He already has a follow-up appointment with his general surgeon, Dr Nunez, on . He does feel comfortable being discharged at this time and returning to the emergency department with any new or worsening or unmanaged symptoms. This is very reasonable. Differential Diagnosis Differential Diagnosis: Postoperative complication including abscess, considered other superficial infection/wound dehiscence, constipation; hypovolemia/dehydration, UTI Medical Records Medical records reviewed: Yes I reviewed the external patient's medical records. Medical records narrative: Reviewed operative note from 01/03/25 Reviewed patient's documentation from his implantable device Vital Signs Vital Signs: Vital Signs Temperature 97.8 F 01/15/25 12:10 Pulse Rate 66 01/15/25 12:10 Respiratory Rate 14 01/15/25 12:10 Blood Pressure 139/52 L 01/15/25 12:10 Pulse Oximetry 100 01/15/25 12:10 Oxygen Delivery Room Air 01/15/25 12:10 Temperature 97.8 F 01/15/25 12:10 Pulse Rate 67 01/15/25 16:23 Respiratory Rate 16 01/15/25 16:23 Blood Pressure 139/64 01/15/25 16:23 Pulse Oximetry 100 01/15/25 16:23 Oxygen Delivery Room Air 01/15/25 12:10 Lab Data 01/15/25 12:59 01/15/25 12:59 Labs: Lab Results 01/15/25 Range/Units 12:59 WBC 9.1 (4.5-10.0) K/mm3 RBC 3.45 L (4.6-6.20) M/mm3 Hgb 10.5 L (14.0-18.0) g/dL Hct 32.3 L (42.0-52.0) % MCV 93.6 (80-100) fl MCH 30.4 (26-34) pg MCHC 32.5 (32-36) g/dl RDW 14.0 (11.5-14.5) % Plt Count 190 (150-375) k/mm3 MPV 10.6 H (7.4-10.4) fl Immature Gran % (Auto) 0.5 (0-0.5) % Neut % (Auto) 74.4 H (45.5-73.1) % Lymph % (Auto) 17.1 L (18.3-44.2) % [place] % (Auto) 6.0 (2.6-8.5) % Eos % (Auto) 1.5 (0-4.4) % Baso % (Auto) 0.5 (0.2-1.2) % Lymph # (Auto) 1.56 (0.9-3.2) K/mm3 [place] # (Auto) 0.6 (0.1-0.6) K/mm3 Eos # (Auto) 0.1 (0-0.3) K/mm3 Baso # (Auto) 0.1 (0.0-0.1) K/mm3 Abs Immat Gran (auto) 0.05 H (0.00-0.031) K/mm3 Absolute Neuts (auto) 6.8 H (1.3-6.7) K/mm3 Absolute Nucleated RBC 0.000 (0.0-0.012) K/mm3 Nucleated RBC % 0.0 (0.0-0.2) % Sodium 139 (137-145) mmol/L Potassium 3.7 (3.4-5.0) mmol/L Chloride 104 (98-107) mmol/L Carbon Dioxide 28 (22-30) mmol/L Anion Gap 7 (4-12) mmol/L BUN 33 H (9-20) mg/dL Creatinine 1.49 H (0.7-1.3) mg/dL Estim Creat Clear Calc 32 ml/min Estimated GFR 46 L (59 - ) Glucose 165 H (65-110) mg/dL Calcium 10.1 (8.4-10.2) mg/dL Total Bilirubin 0.3 (0.2-1.3) mg/dL AST 33 (17-59) U/L ALT 25 (6-50) U/L Alkaline Phosphatase 81 (38-126) U/L Total Protein 7.0 (6.3-8.2) g/dL Albumin 3.8 (3.5-5.1) g/dL Urine Color Yellow (Yellow) Urine Appearance Clear (Clear) Urine pH 7.0 (5.0-9.0) Ur Specific [place] 1.017 (1.001-1.035) Urine Protein 1+ H (Negative) mg/dL Urine Glucose (UA) Negative (Negative) mg/dL Urine Ketones Negative (Negative) mg/dL Ur Blood (Man) Negative (Negative) Urine Nitrate Negative (Negative) Urine Bilirubin Negative (Negative) Urine Urobilinogen 0.2 (<2.0) mg/dL Leukocyte Esterase Rfl Negative (Negative) CYNTHIA/UL Urine RBC 0-2 (0-2) /hpf Urine WBC 0-5 (0-3) /hpf Ur Squamous Epith Cells None seen (Few) /hpf Urine Bacteria None seen /hpf Urine Casts 3-5 Imaging Data Radiologist's impression: Impressions Abdomen/Pelvis CT 01/15/25 13:48 IMPRESSION: Densely calcified atherosclerotic disease of the infrarenal abdominal aorta, as detailed above, unchanged from prior. Bilateral fat-containing inguinal hernias. ECG Data EKG #1: Attestation: I personally reviewed and interpreted this ECG as follows: ECG completion date: 01/15/25 ECG completion time: 12:26 Interpretation: Normal sinus rhythm at a rate of 65 beats per minute. DC interval is prolonged at 232 millisecond consistent with a first-degree AV block. QRS 101. QT/QTC 385/397. Good R-wave progression across the precordial leads. No T-wave inversions. Discharge Plan Discharge Clinical Impression: First degree atrioventricular block determined by electrocardiography, Normocytic anemia, Postoperative abdominal pain, Dizziness, Pain in urethra, Hyperglycemia due to diabetes mellitus, CKD (chronic kidney disease), Atherosclerosis of abdominal aorta, Inguinal hernia Patient Disposition: Home Condition: Stable Instructions: Antibiotic Form, Chronic Kidney Disease (ED), Chronic Kidney Disease Diet (DC), Inguinal Hernia (ED), Abdominal Pain (ED), Lightheadedness (ED), Dizziness (ED), Anemia (ED), Diabetic Hyperglycemia (ED), Urethritis (ED) Additional Instructions: As we discussed, your work up showed a lot of stable/chronic findings and you were feeling better after some fluids and medication. Pyridium/phenazopyridine can help with the pain you are experiencing even though you do not have a UTI. It can discolor your urine and tears (turn them orange). Do not wear contact lenses while taking this medication. Follow up with your PCP and Keep your upcoming follow-up appointment with the general surgeon scheduled on . Return to the emergency department any new, worsening, unmanaged symptoms. Patient Language: Welsh Prescriptions: New phenazopyridine [Pyridium] 100 mg tablet 100 mg PO TID PRN (Reason: pain) Qty: 5 0RF Rx Instructions: received first dose in the ED 01/15 afternoon No Action nitroglycerin 0.3 mg tablet, sublingual 0.3 mg sublingual PRN PRN (Reason: Chest Pain) Brilinta 60 mg tablet 60 mg PO BID Patient Comments: HOLD 5 days prior to surgery chlorthalidone 25 mg tablet 25 mg PO DAILY telmisartan 80 mg tablet 80 mg PO DAILY rosuvastatin 40 mg tablet 40 mg PO DAILY Kerendia 10 mg tablet 10 mg PO DAILY Qty: 30 7RF aspirin [Adult Aspirin Regimen] 81 mg tablet,delayed release (DR/EC) 81 mg PO DAILY linagliptin 5 mg tablet 5 mg PO QAM Qty: 90 2RF (DME) Accu-Chek Aaliyah Plus test strp Strip See Rx Instructions .Route Qty: 400 1RF Rx Instructions: Check blood sugar 4 times daily (DME) lancets [E-Z Ject Lancets] 33 gauge misc See Rx Instructions .Route Qty: 400 12RF Rx Instructions: three times daily glimepiride 1 mg tablet 1 mg PO BID Qty: 180 1RF Rx Instructions: 1 mg before breakfast and 1 mg before supper Gvoke HypoPen 2-Pack 1 mg/0.2 mL auto-injector 1 mg subcut ONCE Qty: 0.4 0RF Rx Instructions: as a single dose; may repeat once after 15 minutes if no response amlodipine 5 mg tablet 5 mg PO DAILY [id number]-inosit-C 20 mg-5 mg- 2 mg-75 mcg tablet,chewable 1 tablet PO DAILY metoprolol tartrate 25 mg Tablet 25 mg PO Q12H hydrocodone-acetaminophen 5-325 mg tablet 1 tablet PO Q4H PRN (Reason: pain) Qty: 10 0RF alendronate [Fosamax] 70 mg tablet 70 mg PO WEEKLY Qty: 4 2RF alprazolam 0.5 mg tablet 0.5 mg PO TID PRN (Reason: Anxiety) Qty: 20 0RF allopurinol 300 mg tablet 300 mg PO DAILY Qty: 90 1RF pantoprazole 40 mg tablet,delayed release (DR/EC) 40 mg PO DAILY Qty: 90 1RF ciprofloxacin HCl [Cipro] 500 mg tablet 500 mg PO Q12H Qty: 10 0RF phenazopyridine [Pyridium] 200 mg tablet 200 mg PO TID PRN (Reason: pain) Qty: 30 0RF Follow-up/Referrals: Fuentes Orellana MD [Primary Care Provider] - Armen Nunez DO [Physician] - Time of Disposition: 16:03
[2025-01-15 12:29] VITALS: RESP 14; O2SAT 100
[2025-01-15 12:31] VITALS: BP 137/51; PULSE 74; RESP 16; O2SAT 100
--- OUTSIDE RECORDS SUMMARY | 2025-01-15 12:32 | XMS_ITS | Encounter Summary ---
Author Organization [facility] Address [address] [place] [address] Phone Care Team Providers Care Slot Shift Supervisor Name Role Phone Fuentes Orellana MD Primary Care Provider Brent Dickinson DO Unavailable [phone] Faviola Jiménez ELECTRONIC CONSOLE DISPLAY OPERATOR, TERMITE INSPECTOR Unavailable Shawnee Mckinney MD Unavailable Chicho Clayton MD Unavailable Lai Lambert ELECTRONIC CONSOLE DISPLAY OPERATOR, TERMITE INSPECTOR Unavailable Kami Meneses MD Unavailable [phone] Anette Bond MD Unavailable [phone] Kay Gordon ELECTRONIC CONSOLE DISPLAY OPERATOR, TERMITE INSPECTOR Unavailable Kami Meneses MD Unavailable [phone] Kami Meneses MD Unavailable [phone] Reason for Visit * Reason Comments Medication Refill Encounter Details Date Type Department Care Team (Late st Contact Info) Description 03/25/2021 Refill [facility] - Gastroenterology - [place] [address] [place] [address] Ingrid Mccloud Ashley, PAC [address] [place] [address] Medication Refill Social History Tobacco Use Types [...] Job 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 Date 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 difficile Rule-Out 04/10/2021 04/10/20212020 12:16 AM CDT documented as of this encounter Care Teams Slot Shift Supervisor Relationship Specialty Start Date End Date Fuentes Orellana MD [address] [place] [address] PCP - General Family Medicine 07/06/15 Brent Dickinson DO [address] [place] [address] Gastroenterology 06/27/16 Faviola Jiménez APRN, TERMITE INSPECTOR [address] [place] [address] Nurse Practitioner Advanced Practice Nurse 07/22/16 Shawnee Mckinney MD [address] [facility] [address] [place] [address] Urologist Urology 06/07/19 Chicho Clayton MD [address] [facility] [address] [place] [address] Oncology 06/13/19 Lai Lambert APRN, TERMITE INSPECTOR [address] [place] [address] Nurse Practitioner Advanced Practice Nurse 02/10/23 Kami Meneses MD #[address] [address] Consulting Physician Urology 06/16/23 Anette Bond MD [address] [place] [address] Consulting Physician Gastroenterology 12/25/22 Kay Gordon APRN, TERMITE INSPECTOR [address] [place] [address] Nurse Practitioner Advanced Practice Nurse 06/16/24 Kami Meneses MD [address] [address] Consulting Physician Urology 08/19/24 Kami Meneses MD [address] [address] Consulting Physician Urology 01/06/25 documented as of this encounter
--- OUTSIDE RECORDS SUMMARY | 2025-01-15 12:32 | XMS_ITS | Encounter Summary ---
Author Organization [facility] Address [address] [place] [address] Phone Care Team Providers Care Textile Machine Operator Name Role Phone Fuentes Orellana MD Primary Care Provider [phone] Brent Dickinson DO Unavailable [phone] Faviola Jiménez SOFTWARE RECRUITER, TANDEM MILL OPERATOR Unavailable Shawnee Mckinney MD Unavailable Chicho Clayton MD Unavailable aLi Lambert SOFTWARE RECRUITER, TANDEM MILL OPERATOR Unavailable [phone] Kami Meneses MD Unavailable [phone] Anette Bond MD Unavailable [phone] Kay Gordon SOFTWARE RECRUITER, TANDEM MILL OPERATOR Unavailable Kami Meneses MD Unavailable [phone] Kami Meneses MD Unavailable [phone] Encounter Details Date Type Department Care Team (Late st Contact Info) Description 12/16/2024 Telephone [facility] [address] [place] [address] Kami Meneses MD [address] [address] Social History Tobacco Use Types Packs/Day Years [...] 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 Chicho Clayton at [facility] for prostate. * Telephone Encounter - Kami Meneses MD - 12/16/2024 11:45 AM CDT Can you ask the patient who follows him for his prostate cancer? documented in this encounter Plan of Treatment Upcoming Encounters Date Type Department Care Team (Late st Contact Info) Description 01/27/2025 2:15 PM CDT Office Visit [facility] [address] [place] [address] Kami Meneses MD [address] [address] documented as of this encounter Visit Diagnoses Not on filedocumented in this encounter Care Teams Textile Machine Operator Relationship Specialty Start Date End Date Fuentes Orellana MD [address] [place] [address] PCP - General Family Medicine 07/06/15 Brent Dickinson DO [address] [place] [address] Gastroenterology 06/27/16 Faviola Jiménez APRN, TANDEM MILL OPERATOR [address] [place] [address] Nurse Practitioner Advanced Practice Nurse 07/22/16 Shawnee Mckinney MD 4960 [facility] 8242 [place] [address] Urologist Urology 06/07/19 Chicho Clayton MD 4921 [facility] 7 [place] [address] Oncology 06/13/19 Lai Lambert APRN, TANDEM MILL OPERATOR #2 [place] [address] Nurse Practitioner Advanced Practice Nurse 02/10/23 Kami Meneses MD #[address] [address] Consulting Physician Urology 06/16/23 Anette Bond MD #2 [place] [address] Consulting Physician Gastroenterology 12/25/22 Kay Gordon APRN, TANDEM MILL OPERATOR #2 [place] [address] Nurse Practitioner Advanced Practice Nurse 06/16/24 Kami Meneses MD #[address] [address] Consulting Physician Urology 08/19/24 Kaim Meneses MD #[address] [address] Consulting Physician Urology 01/06/25 documented as of this encounter
--- OUTSIDE RECORDS SUMMARY | 2025-01-15 12:32 | XMS_ITS | CONTINUITY OF CARE DOCUMENT ---
Author Name malik gan Address Unknown Organization [facility] Address [address] [place] [address] [address] [place] [address] Phone [phone] Care Team Providers Care Information Technology Data Analyst Name Role Phone Dinh BARRERA, [facility] Unavailable
--- OUTSIDE RECORDS SUMMARY | 2025-01-15 12:32 | XMS_ITS | Encounter Summary ---
Author Organization [facility] Address [address] [facility] [address] [place] [address] Care Team Providers Care Auto Motor Mechanic Name Role Phone Fuentes Orellana MD Primary Care Provider [phone] Fuentes Orellana MD Primary Care Provider [phone] Itz Iyer MD Unavailable [phone] Lupillo [place] MD Unavailable [phone] Lupillo [place] MD Unavailable [phone] Shawnee Mckinney MD Unavailable [phone] Chicho Clayton MD Unavailable Newton Weeks MD Unavailable [phone] Maria Guadalupe Palacios RN Unavailable Unava ilable Lupillo [place] MD Unavailable [phone] Itz Iyer MD Unavailable [phone] Itz Iyer MD Unavailable [phone] Itz Iyer MD Unavailable [phone] Itz Iyer MD Unavailable [phone] Itz Iyer MD Unavailable [phone] Itz Iyer MD Unavailable [phone] Danis Meza CHECK EMBOSSER Unavailable [phone] Rater, Antonette CHECK EMBOSSER Unavailable Aniceto Foley MD Unavailable [phone] Encounter Details Date Type Department Care Team (Late st Contact Info) Description 11/18/2016 Orders Only [facility] Provider, MD Katie [facility], 1928–1983 [place] [address] Social History Tobacco Use Types Packs/Day Years Used Date Smoking Tobacco: Never Assessed Sex and Gender Information Value Date Recorded Sex Assigned at Not on file Legal Sex Male 12:32 AM DIRECTOR RECREATION Gender Identity Not on file Sexual Orientation [...] on filedocumented in this encounter Care Teams Auto Motor Mechanic Relationship Specialty Start Date End Date Fuentes Orellana MD PCP - General 11/28/16 Fuentes Orellana MD PCP - General 07/14/07 11/27/16 Itz Iyer MD [address] [facility] [address] [place] [id number] Consulting Physician Urology 05/31/18 Lupillo [place]en[place] MD [address] [place] [address] Referring Physician Radiation Oncology 05/31/18 Lupillo [place]en[place] MD [address] [place] [address] Referring Physician Radiation Oncology 05/31/18 Shawnee Mckinney MD [address] [facility] [address] [place] [address] Referring Physician Urology 06/03/18 Chicho Clayton MD [address] [facility] 8056 [place] [address] Medical Oncologist/Hematologis t Medical Oncology 06/07/18 Newton Weeks MD [address] [facility] [address] [place] [address] Referring Physician Radiation Oncology 06/07/18 Maria Guadalupe Palacios, RN Registered Nurse 06/10/18 Lupillo [place]en[place] MD [address] [place] [address] Referring Physician Radiation Oncology 06/16/18 Itz Iyer MD [address] [address] Consulting Physician Urology 06/17/18 06/17/18 Itz Iyer MD [address] [address] Consulting Physician Urology 06/18/18 06/18/18 Itz Iyer MD [address] [place] [address] Consulting Physician Urology 06/18/18 06/18/18 Itz Iyer MD [address] [place] [address] Consulting Physician Urology 06/22/18 06/22/18 Itz Iyer MD [address] [place] [address] Consulting Physician Urology 07/01/18 07/01/18 Itz Iyer MD [address] [place] [address] Consulting Physician Urology 07/06/18 07/06/18 Danis Meza NP [address] [place] [address] Nurse Practitioner Urology 10/06/22 Antonette Owens NP [address] [place] [address] Nurse Practitioner Cardiovascular Disease 10/06/22 Aniceto Foley MD [address] [place] [address] Surgeon Vascular Surgery 10/31/22 documented as of this encounter
--- OUTSIDE RECORDS SUMMARY | 2025-01-15 12:32 | XMS_ITS | Clinical Summary ---
Author Organization [facility] Address [address], [facility] [address] [place] [address] Phone Care Team Providers Care Electronic Wirer Name Role Phone Fuentes Orellana MD Primary Care Provider [phone] Brent Dickinson DO Unavailable [phone] Faviola Jiménez CARDBOARD INSERTER, COTTONSEED MEAT PRESSER Unavailable Shawnee Mckinney MD Unavailable Chicho Clayton MD Unavailable Lai Lambert CARDBOARD INSERTER, COTTONSEED MEAT PRESSER Unavailable [phone] Kami Meneses MD Unavailable [phone] Anette Bond MD Unavailable [phone] Kay Gordon CARDBOARD INSERTER, COTTONSEED MEAT PRESSER Unavailable Kami Meneses MD Unavailable [phone] Kami Meneses MD Unavailable [phone] Allergies No known active allergies Medications [...] Telephone [facility] #2 [place] [address] Kami Meneses MD 01/10/2025 1:30 PM CDT Office Visit [facility] #2 [place] [address] Kami Meneses MD UTI symptoms (Primary Dx) Discharge Disposition: Discharged to home or Selfcare 01/10/2025 Travel 12/23/2024 9:00 AM CDT Office Visit [facility] #2 [place] [address] Kami Meneses MD UTI symptoms (Primary Dx) Discharge Disposition: Discharged to home or Selfcare 12/23/2024 Travel 12/21/2024 Telephone [facility] #2 [place] [address] Kami Meneses MD Testicle Pain 12/16/2024 10:45 AM CDT Office Visit [facility] #2 [place] [address] Kami Meneses MD Stress incontinence (female) (male) (Primary Dx) Discharge Disposition: Discharged to home or Selfcare 12/16/2024 Telephone [facility] #2 [place] [address] Kami Meneses MD 12/16/2024 Travel 10/26/2024 Telephone [facility] #2 [place] [address] Kami Meneses MD Pre-surgical question from Last [...] Job 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 on file Not on file Not on cory e Last Filed Vital Signs Vital Sign Reading Time Taken Comments Blood Pressure 154/64 12/23/2024 9:15 AM CDT Pulse 69 12/23/2024 9:15 AM CDT Temperature 36.4 C (97.6 F) 08/10/2024 9:53 AM ISOTOPE TECHNOLOGIST Respiratory Rate 16 01/10/2025 1:15 PM CDT [...] Description 01/27/2025 2:15 PM CDT Office Visit [facility] #2 [place] [address] Kami Meneses MD #[address] [address] Health Maintenance Due Date Last Done Comments [...] No growth final 01/11/2025 5:23 PM CDT [facility] Culture URINE SPECIMEN OBTAINED BY CLEAN CATCH PROCEDURE / Unknown Non-Phlebotomy Collection / Unknown 01/10/2025 1:45 PM CDT 01/10/2025 1:45 PM CDT us Deanneaishahrzad Gleason MD MICROBIOLOGY - GENERAL ORDERAB LES Final Result [facility] [address] [place] [address], [place] * COLONOSCOPY (05/24/2020) Brent Dickinson DO PROCEDURE/MINOR SURGICAL ORDERA BLES Final Result from Last 3 Months or Most Recently Relevant to Health Maintenance Insurance MEDICARE [facility] Care Teams Electronic Wirer Relationship Specialty Start Date End Date Fuentes Orellana MD [address] [address] PCP - General Family Medicine 07/06/15 Brent Dickinson DO [address] [address] Gastroenterology 06/27/16 Faviola Jiménez, CARDBOARD INSERTER, COTTONSEED MEAT PRESSER [address] [address] Nurse Practitioner Advanced Practice Nurse 07/22/16 Shawnee Mckinney MD [address] [facility] [address] [place] [address] Urologist Urology 06/07/19 Chicho Clayton MD [address] [facility] [address] [place] [address] Oncology 06/13/19 Lai Lambert APRN, COTTONSEED MEAT PRESSER #2 [place] [address] Nurse Practitioner Advanced Practice Nurse 02/10/23 Kami Meneses MD #[address] [address] Consulting Physician Urology 06/16/23 Anette Bond MD #2 [place] [address] Consulting Physician Gastroenterology 12/25/22 Kay Gordon APRN, COTTONSEED MEAT PRESSER #2 [place] [address] Nurse Practitioner Advanced Practice Nurse 06/16/24 Kami Meneses MD [facility] [facility] [address] [address] Consulting Physician Urology 08/19/24 Kami Meneses MD #[address] [address] Consulting Physician Urology 01/06/25
--- OUTSIDE RECORDS SUMMARY | 2025-01-15 12:32 | XMS_ITS | Encounter Summary ---
Author Organization [facility] Address [address] [place] [address] Phone Care Team Providers Care Relief Captain Name Role Phone Fuentes Orellana MD Primary Care Provider [phone] Brent Dickinson DO Unavailable [phone] Faviola Jiménez MARINE ELECTRICIAN, ELECTRICAL TRANSMISSION ENGINEER Unavailable Shawnee Mckinney MD Unavailable Chicho Clayton MD Unavailable Lai Lambert MARINE ELECTRICIAN, ELECTRICAL TRANSMISSION ENGINEER Unavailable Kami Meneses MD Unavailable [phone] Anette Bond MD Unavailable [phone] Kay Gordon MARINE ELECTRICIAN, ELECTRICAL TRANSMISSION ENGINEER Unavailable Kami Meneses MD Unavailable [phone] Kami Meneses MD Unavailable [phone] Reason for Visit * Reason Comments Medication Refill Encounter Details Date Type Department Care Team (Late st Contact Info) Description 10/15/2021 Refill [facility] - G[facility]enterology - [place] #2 [place] [address] Ingrid Mccloud Ashley, PAC [address] [place] [address] Medication Refill Social History Tobacco Use Types [...] 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 T PARKER documented in this encounter Plan of Treatment Upcoming Encounters Date Type Department Care Team (Late st Contact Info) Description 01/27/2025 2:15 PM CDT Office Visit [facility] #2 [place] [address] Kami Meneses MD #[address] [address] documented as of this encounter Visit Diagnoses Not on filedocumented in this encounter Care Teams Relief Captain Relationship Specialty Start Date End Date Fuentes Orellana MD [address] [place] [address] PCP - General Family Medicine 07/06/15 Brent Dickinson DO [address] [place] [address] Gastroenterology 06/27/16 Faviola Jiménez APRN, ELECTRICAL TRANSMISSION ENGINEER [address] [place] [address] Nurse Practitioner Advanced Practice Nurse 07/22/16 Shawnee Mckinney MD 4960 [facility] [address] [place] [address] Urologist Urology 06/07/19 Chicho Clayton MD [address] [facility] [address] [place] [address] Oncology 06/13/19 Lai Lambert APRN, ELECTRICAL TRANSMISSION ENGINEER #2 [place] [address] Nurse Practitioner Advanced Practice Nurse 02/10/23 Kami Meneses MD #[address] [address] Consulting Physician Urology 06/16/23 Anette Bond MD #2 [place] [address] Consulting Physician Gastroenterology 12/25/22 Kay Gordon APRN, ELECTRICAL TRANSMISSION ENGINEER #2 [place] [address] Nurse Practitioner Advanced Practice Nurse 06/16/24 Kami Meneses MD #[address] [place] [address] Consulting Physician Urology 08/19/24 Kami Meneses MD #[address], [facility] [address] [place] [address] Consulting Physician Urology 01/06/25 documented as of this encounter
--- OUTSIDE RECORDS SUMMARY | 2025-01-15 12:32 | XMS_ITS | Clinical Summary ---
Author Organization [facility] Address [address] [place] [address] Care Team Providers Care Winding Inspector And Tester Name Role Phone Fuentes Orellana MD Primary Care Provider [phone] Allergies No known active allergies Medications amLODIPine [...] age to complete this topic Insurance MEDICARE [facility] Care Teams Winding Inspector And Tester Relationship Specialty Start Date End Date Fuentes Orellana MD [address] [place] [id number] PCP - General FAMILY PRACTICE 11/29/22
--- OUTSIDE RECORDS SUMMARY | 2025-01-15 12:32 | XMS_ITS | Encounter Summary ---
Author Organization [facility] Address [address] [place] [address] Phone Care Team Providers Care Cheese Cook Name Role Phone Fuentes Orellana MD Primary Care Provider [phone] Brent Dickinson DO Unavailable [phone] Faviola Jiménez PSYCHOLOGY ASSOCIATE, QUANTITATIVE MANAGER Unavailable Shawnee Mckinney MD Unavailable Chicho Clayton MD Unavailable Lai Lambert PSYCHOLOGY ASSOCIATE, QUANTITATIVE MANAGER Unavailable [phone] Kami Meneses MD Unavailable [phone] Anette Bond MD Unavailable [phone] Kay Gordon PSYCHOLOGY ASSOCIATE, QUANTITATIVE MANAGER Unavailable Kami Meneses MD Unavailable [phone] Kami Meneses MD Unavailable [phone] Encounter Details Date Type Department Care Team (Late st Contact Info) Description 08/22/2024 Telephone [facility] [address] [place] [address] Kami Meneses MD #[address], [facility] [address] [place] [address] Social History Tobacco Use Types Packs/Day Years [...] Job 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 Date 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 LATE LAYOUT WORKER * Telephone Encounter - Elidia Dill - 08/29/2024 8:20 AM CST Please see Dr. Otto message. LATE LAYOUT WORKER * Telephone Encounter - Kami Meneses MD [...] sphincter. This needs to be done at [facility] by ms. He will need a urine culture 14 days prior to surgery. Hibiclens shower the night before morning of surgery, vancomycin and gentamicin for antibiotics LATE LAYOUT WORKER LATE LAYOUT WORKER documented in this encounter Plan of Treatment Upcoming Encounters Date Type Department Care Team (Late st Contact Info) Description 01/27/2025 2:15 PM CDT Office Visit [facility] #2 [place] [address] Kami Meneses MD #[address] [address] documented as of this encounter Visit Diagnoses Not on filedocumented in this encounter Care Teams Cheese Cook Relationship Specialty Start Date End Date Fuentes Orellana MD [address] [place] [address] PCP - General Family Medicine 07/06/15 Brent Dickinson DO [address] [place] [address] Gastroenterology 06/27/16 Faviola Jiménez, PSYCHOLOGY ASSOCIATE, QUANTITATIVE MANAGER [address] [place] [address] Nurse Practitioner Advanced Practice Nurse 07/22/16 Shawnee Mckinney MD [address]60 [facility] [address] [place] [address] Urologist Urology 06/07/19 Chicho Clayton MD [address] [facility] 7 [place] [address] Oncology 06/13/19 Lai Lambert APRN, QUANTITATIVE MANAGER #[address] [place] [address] Nurse Practitioner Advanced Practice Nurse 02/10/23 Kami Meneses MD [address] [address] Consulting Physician Urology 06/16/23 Anette Bond MD #2 [place] [address] Consulting Physician Gastroenterology 12/25/22 Kay Gordon APRN, QUANTITATIVE MANAGER #2 [facility] [place] [address] Nurse Practitioner Advanced Practice Nurse 06/16/24 Kami Meneses MD #[address] [address] Consulting Physician Urology 08/19/24 Kami Meneses MD [address] [address] Consulting Physician Urology 01/06/25 documented as of this encounter
--- OUTSIDE RECORDS SUMMARY | 2025-01-15 12:32 | XMS_ITS | Encounter Summary ---
Author Organization [facility] Address [address] [place] [address] Phone Care Team Providers Care Pattern Mechanic Name Role Phone Fuentes Orellana MD Primary Care Provider Brent Dickinson DO Unavailable [phone] Faviola Jmiénez BUTTON DECORATING MACHINE OPERATOR, ALARM FIELD TECHNICIAN Unavailable Shawnee Mckinney MD Unavailable Chicho Clayton MD Unavailable Lai Lambert BUTTON DECORATING MACHINE OPERATOR, ALARM FIELD TECHNICIAN Unavailable [phone] Kami Meneses MD Unavailable [phone] Anette Bond MD Unavailable [phone] Kay Gordon BUTTON DECORATING MACHINE OPERATOR, ALARM FIELD TECHNICIAN Unavailable Kami Meneses MD Unavailable [phone] Kami Meneses MD Unavailable [phone] Encounter Details Date Type Department Care Team (Late st Contact Info) Description 01/13/2025 Telephone [facility] [address] [place] [address] Kami Meneses MD #[address] [address] Social History Tobacco Use Types Packs/Day Years [...] 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 Not on file Not on cory e documented as of this encounter Miscellaneous Notes * Telephone Encounter - Elidia Dill - 01/13/2025 2:04 PM CDT Pt calling [...] Description 01/27/2025 2:15 PM CDT Office Visit [facility] #[address] [place] [address] Kami Meneses MD #[address] [address] documented as of this encounter Visit Diagnoses Not on filedocumented in this encounter Care Teams Pattern Mechanic Relationship Specialty Start Date End Date Fuentes Orellana MD [address] [place] [address] PCP - General Family Medicine 11/6/15 Brent Dickinson DO [address] [place] [address] Gastroenterology 06/27/16 Faviola Jiménez APRN, ALARM FIELD TECHNICIAN [address] [place] [address] Nurse Practitioner Advanced Practice Nurse 07/22/16 Shawnee Mckinney MD 4960 [facility] [address] [place] [address] Urologist Urology 06/07/19 Chicho Clayton MD 4921 [facility] 7 [place] [address] Oncology 06/13/19 Lai Lambert APRN, ALARM FIELD TECHNICIAN #2 [place] [address] Nurse Practitioner Advanced Practice Nurse 02/10/23 Kami Meneses MD #[address] [address] Consulting Physician Urology 06/16/23 Anette Bond MD #2 [place] [address] Consulting Physician Gastroenterology 12/25/22 Kay Gordon APRN, ALARM FIELD TECHNICIAN #2 [place] [address] Nurse Practitioner Advanced Practice Nurse 06/16/24 Kami Meneses MD #[address], [facility] [place] [address] [place] [address] Consulting Physician Urology 08/19/24 Kami Meneses MD #[address], [facility] [place] [address] [place] [address] Consulting Physician Urology 01/06/25 documented as of this encounter
--- OUTSIDE RECORDS SUMMARY | 2025-01-15 12:32 | XMS_ITS | Clinical Summary ---
Author Organization [facility] [address] Address [address] [place] [address] Care Team Providers Care Peoplesoft Programmer Name Role Phone Fuentes Orellana MD Primary Care Provider Itz Iyer MD Unavailable [phone] Shawnee Mckinney MD Unavailable [phone] Chicho Clayton MD Unavailable Maria Guadalupe Palacios RN Unavailable Unava ilable Lupillo Davenport MD Unavailable [phone] Danis Meza TRANSACTION ADVISORY SERVICES MANAGER Unavailable Antonette Owens NP Unavailable Aniceto [...] immediate release tabletIndicatio ns:Coronary artery disease involving lower [place] coronary artery of [place] heart without angina pectoris Take 1 tablet [...] (10/21/2022): Added automatically from request for surgery [id number] Assessment & Plan (10/30/2022 2:56 PM CASINO SLOT SUPERVISOR): - OR 3/2 for planned R CEA - OU status, Q2h NV/VS monitoring - Bedrest today, OOB/PT POD #1 - SBP goal 100-160, nicardipine for elevated BP - Continue aspirin and statin - Plan to stager home medications and resume overnight Atherosclerosis of [place] ar teries of extremities with intermittent claudication, bilateral legs 06/03/2022 Melanoma 01/10/2021 Anxiety 01/10/2021 DM (diabetes mellitus) 01/10/2021 Assessment & Plan (10/30/2022 9:59 AM CASINO SLOT SUPERVISOR): - A1c 7.6% 10/2022 - SSI while inpatient - CC diet when eating Elevated left ventricular end-diastolic pressure (LVEDP) 11/15/2019 Encounter for surgical after care following surgery of circulatory system 05/20/2019 Prostate cancer 09/10/2018 Assessment & Plan (10/27/2018 9:53 AM CASINO SLOT SUPERVISOR): Follows with urology, has his PSA monitored it is increasing, but still WNL 1.4 Assessment & Plan (09/22/2018 11:35 AM CASINO SLOT SUPERVISOR): Has close follow up with his oncologist. His PSA was slightly elevated on last check. Hyperlipidemia 09/21/2017 Assessment & Plan (06/30/2018 9:38 AM CDT): His last lipid panel was within acceptable range; he will continue on a high intensity statin. Assessment & Plan (09/21/2017 11:34 AM CASINO SLOT SUPERVISOR): Continue Lipitor 40 mg daily. Essential hypertension 07/20/2017 Assessment & Plan (10/30/2022 2:57 PM CASINO SLOT SUPERVISOR): - Tight BP goals post-procedure - Continue home medications as indicated by BP goals as above, staggering overnight for gentle BP control Assessment & Plan (10/27/2018 9:54 AM CASINO SLOT SUPERVISOR): Hypertension is unchanged. Dietary sodium restriction. Blood pressure will be reassessed in 4 weeks. Assessment & Plan (09/22/2018 11:38 AM CASINO SLOT SUPERVISOR): Hypertension remains elevated. He is increasing his [...] today Assessment & Plan (09/21/2017 11:33 AM CASINO SLOT SUPERVISOR): Blood pressure is well controlled today. Last visit we added HCTZ 12.5 mg daily. Continue current medications Assessment & Plan (08/10/2017 11:26 AM CASINO SLOT SUPERVISOR): Blood pressure is not controlled. Add hydrochlorothiazide 12.5 mg p.o. daily. He is compliant with medications but always add salt to food which I advised him not to do that. Assessment & Plan (07/20/2017 9:19 AM CASINO SLOT SUPERVISOR): Blood pressure remains uncontrolled. We will order renal Doppler ultrasound to rule out renal artery stenosis given the fact that he has peripheral vascular disease and coronary artery disease. I will increase amlodipine from 5-10 mg p.o. daily. If that does not control the blood pressure we will add hydrochlorothiazide 12.5 mg p.o. Daily. Coronary artery disease invo lving [place] coronary artery of [place] heart without angina pectoris 07/20/2017 Assessment & Plan (10/30/2022 9:58 AM CASINO SLOT SUPERVISOR): - Continue home medications as able - Maintained on Brilinta as an outpatient; held 1 week prior to OR - Will discuss with surgery team when to safely resume post-procedure Assessment & Plan (10/27/2018 9:59 AM CASINO SLOT SUPERVISOR): Coronary artery disease is improving with lifestyle modifications. Continue current treatment regimen. Cardiac status will be reassessed in 3 months. No chest pain. Minimal SOB. Continue asa, statin, brilinta Assessment & Plan (09/22/2018 11:36 AM CASINO SLOT SUPERVISOR): Coronary artery disease is unchanged. Regular aerobic [...] BB. Assessment & Plan (09/21/2017 11:33 AM CASINO SLOT SUPERVISOR): Continue aspirin, Brilinta, Toprol XL and atorvastatin. Assessment & Plan (08/10/2017 11:27 AM CASINO SLOT SUPERVISOR): Continue Brilinta and aspirin. Asymptomatic. Assessment & Plan (07/20/2017 9:19 AM CASINO SLOT SUPERVISOR): Continue aspirin, Brilinta, Lipitor , metoprolol PVD (peripheral vascular disease) 07/20/2017 Assessment & Plan (10/27/2018 9:21 AM CASINO SLOT SUPERVISOR): S/P bilateral ALVA angioplasty; right EIA angioplasty/stent 11/21/14. S/P aortoiliac angioplasty/stent 05/28/09. Continues on asa, statin and brilinta Assessment & Plan (09/21/2017 11:34 AM CASINO SLOT SUPERVISOR): He follows up with vascular surgery at [facility] Assessment & Plan (08/10/2017 11:27 AM CASINO SLOT SUPERVISOR): Renal ultrasound suggest more than 60% stenosis in the right renal artery and infrarenal stenosis 50-70%. He follows up with Dr. Foley from vascular surgery at [facility] Assessment & Plan (07/20/2017 9:20 AM CASINO SLOT SUPERVISOR): Patient will follow up with Dr. Foley from vascular surgery. He does have some claudication when he walks. 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 Has stopped caffeine intake. Has [...] or graft 6 02/09/2019 Atherosclerosis of [place] artery of extremity 04/15/20 16 02/09/2019 Assessment & Plan (09/22/2018 11:26 AM CASINO SLOT SUPERVISOR): 80% circumflex s/p RICHARD. 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 {plan; hypertension for POC:[id number]} Blood pressure will be reassessed {plan; follow-up 2 weeks/4weeks/3months:[id number]}. Increase amolodipine to 10 mg Continue all [...] Description 12/09/2024 1:00 PM CDT Office Visit [facility] Cardiology [address] [place] [phone] Kay Ward NP Coronary artery disease of [place] artery of [place] heart with stable angina pectoris (Primary Dx); Orthostatic hypotension; LVH (left ventricular hypertrophy); PVD (peripheral vascular disease); Preoperative cardiovascular examination 11/10/2024 Telephone [facility] Home Care Services [address] [place] [address] Cheryl Bundy 11/09/2024 7:30 AM CDT - 11/09/2024 10:00 AM CDT Surgery [facility] Operating Room [address] [place] [address] Kami Meneses MD Cystoscopy 11/09/2024 7:30 AM CDT Anesthesia Event [facility] Operating Room [address] [place] [phone] Lai Gregg DO [place], Justin Kyle, CRNA 11/09/2024 5:14 AM CDT - 11/12/2024 2:30 PM CDT Hospital Encounter [address] [phone] Kami Meneses MD Intrinsic urethral sphincter deficiency (Primary Dx) Discharge Disposition: Discharge to home, home health skilled care 10/26/2024 12:45 PM CASINO SLOT SUPERVISOR Pre-Admission Testing [facility] Pre Anesthesia Testing [address] [place] [address] Stress incontinence 10/20/2024 10:30 AM CASINO SLOT SUPERVISOR Office Visit [facility] Cardiology [address] [place] [address] Kay Ward NP Coronary artery disease of [place] artery of [place] heart with stable angina pectoris (Primary Dx); [...] INTRAOCULAR LENS IMPLANT Right ANGIO SELECTIVE CAROTID GUIDE DOG TRAINER RIGHT 10/15/2022 Right MELANOMA RESECTION 12/17/2014 Right [...] kidney disease) stage 3, GFR 30-59 ml/min ([facility]) PVD (peripheral vascular disease) Family History Medical [...] drink = 0.6 oz pu re alcohol) [facility] Utilities Answer Date Recorded In the past 12 months has [employer], gas, oil, or water [employer] threatened to shut off services in your [...] week 11/11/2024 How often do you attend [facility] or christian services? More than 4 times per year 11/11/2024 Do you belong to any clubs o r organizations such as spiritism groups, unions, fraternal or athletic groups, or [...] were you homeless or living in a fdc (including now)? No 11/11/2024 Personal Safety Answer Date Recorded Have you ever been in or are you currently in a harmful physical or emotional relationship or is someone making you feel afraid or unsafe? Denies 11/09/2024 Sex and Gender Information Value Date Recorded Sex Assigned at Not on file Legal Sex Male 12:32 AM CASINO SLOT SUPERVISOR Gender Identity Not on file Sexual Orientation [...] history exists Medical Devices Implanted Type Area Aoc Operations Intelligence Chief Device Identifier Shelf Expiration Date Model / [...] 61 to 70 cm pressure-regulating balloon. [employer] Sandra Vascu-Guard 8x.8cm Peripheral Patch Vascular Bovine Pericardium [id number] - [id number] Implanted:Qty: 1 on 10/30/2022 by Aniceto Foley MD at [facility] Right: Carotid [facility] Sandra [id number] 07/09/2023 [id number] / / [id number] [employer] Sandra Ams 800 Kit Accessory Sterile Disposable Latex Free Urinary [id number] - [id number] Implanted:Qty: 1 on 11/09/2024 by Kami Meneses MD at [facility] N/A: Urethra [employer] Sandra [id number] 03/09/2029 [id number] / / [id number] [employer] Sandra Cuff Urethral Ams 800 Inhibizone 3.5cm [id number] - [id number] Implanted:Qty: 1 on 11/09/2024 by Kami Meneses MD at [facility] N/A: Urethra [employer] Sandra [id number] 02/22/2026 [id number] / / [id number] [employer] Sandra Ams 800 Pressure Balloon Sphincter 61-70cu Cm Implant Urological [id number] - [id number] Implanted:Qty: 1 on 11/09/2024 by Kami Meneses MD at [facility] N/A: Abdomen [employer] Sandra [id number] 03/20/2029 [id number] / / [id number] [employer] Sandra Ams 800 Control Pump Sphincter Implant Urological Inhibizone [id number] - [id number] Implanted:Qty: 1 on 11/09/2024 by Kami Meneses MD at [facility] N/A: Scrotum [employer] Sandra [id number] 02/15/2026 [id number] / / [id number] Procedures Procedure Name Priority Date/Time Associated Diagnosis [...] DEVICE Routine 11/09/2024 9 :20 AM CDT ID AN PROCEDURE PLACEHOLDER Routine 11/09/2024 7:54 AM CDT ID AN ELECTIVE ENDOTRACHEAL AIRWAY Routine 11/09/2024 7:54 AM CDT ARTIFICIAL URINARY SPHINCTER 11/09/2024 7:32 AM CDT Stress incontinence CYSTOSCOPY 11/09/2024 7:32 AM CDT Stress incontinence POCT GLUCOSE DEVICE Routine 11/09/2024 6 :43 AM CDT URINALYSIS, MICROSCOPIC ONLY Routine 10/26/2024 1:43 PM CASINO SLOT SUPERVISOR Stress incontinence URINALYSIS AND REFLEX TO MICROSCOPIC AND CULTURE Routine 10/26/2024 1:43 PM CASINO SLOT SUPERVISOR Stress incontinence LIPID PANEL Routine 03/22/2024 10:23 AM CDT Coronary artery disease involving lower [place] coronary artery of [place] heart without angina pectoris CTA ABDOMINAL AORTA AND BILATERAL ILIOFEMORAL RUNOFF Schedule Routine, Read Routine (OP Routine) 12/15/2023 1:56 PM CDT PVD (peripheral vascular disease) HEMOGLOBIN A1C Routine 09/22/2023 12:19 PM CASINO SLOT SUPERVISOR Prostate cancer (HCC) from Last 3 Months or Most Recently Relevant to Health Maintenance Results * POCT glucose (11/12/2024 11:38 AM CDT) [facility] Glucose, POC 151 70 - 199 mg/dL Comment: For Glucose values <35 mg/dl when Hematocrit is >60 mg/dl,the test may not accurately detect significant hypoglycemia,and testing in the Laboratory should be considered if clinically indicated. Blood 11/12/2024 11:3 8 AM CDT 11/12/2024 11:38 AM CDT Kami Gleason MD LAB POCT ORDERABLES - DEVICE F inal Result [facility] [address] [place] [address] * (ABNORMAL) eGFR (11/12/2024 8:15 AM CDT) [facility] eGFR 59(L) >=60 mL/min/1. 73 m2 Comment: [...] Coronado NP LAB BLOOD ORDERABLES nal Result [facility] [address] [place] [address] * (ABNORMAL) Basic metabolic panel (11/12/2024 8:15 AM CDT) Sodium 138 135 - 145 mmol/L Potassium, pl 4.2 3.3 - 4.9 mmol/L [facility] Chloride 106 97 - 110 mmol/L [facility] CO2 21(L) 22 - 32 mmol/L [facility] Anion gap 11 2 - 15 mmol/L [facility] BUN 28(H) 6 - 25 mg/dL [facility] Creatinine 1.26 0.80 - 1.30 mg/dL [facility] Glucose 136 70 - 199 mg/dL [facility] Comment: Interpretive Data Fasting glucose >/= 126 mg/dl is diagnostic for diabetes. Fasting is defined as no caloric intake for at least 8 hours. Fasting glucose between 100 mg/dl to 125 mg/dl is diagnostic of prediabetes. In a patient with classic symptoms of hyperglycemia or hyperglyc [id number]|2025-01-15 12:32:00|2025-01-15 12:32:00|XMS_ITS|MARVA FARR|External Medical Summaries|[id number]|" Encounter Summary Created on: January 15, 2025 Derek Freeman : 1950 Sex: Male Author Organization [facility] Address [address] [place] [address] Phone Care Team Providers Care Peoplesoft Programmer Name Role Phone Fuentes Orellana MD Primary Care Provider + [phone] Itz Iyer MD Unavailable [phone] Lupillo Davenport MD Unavailable [phone] Lupillo Davenport MD Unavailable [phone] Shawnee Mckinney MD Unavailable [phone] Chicho Clayton MD Unavailable Newton Weeks MD Unavailable [phone] Maria Guadalupe Palacios RN Unavailable Unava ilable Lupillo Davenport MD Unavailable [phone] Itz Iyer MD Unavailable [phone] Itz Iyer MD Unavailable [phone] Itz Iyer MD Unavailable [phone] Itz Iyer MD Unavailable [phone] Itz Iyer MD Unavailable [phone] Itz Iyer MD Unavailable [phone] Danis Meza NP Unavailable [phone] Antonette Owens NP Unavailable Aniceto Foley MD [...] on file Legal Sex Male 12:32 AM CASINO SLOT SUPERVISOR Gender Identity Not on file Sexual Orientation [...] on filedocumented in this encounter Care Teams Peoplesoft Programmer Relationship Specialty Start Date End Date Fuentes Orellana MD PCP - General 11/28/16 Itz Iyer MD [address] [address] Consulting Physician Urology 05/31/18 Lupillo Davenport MD [address] [place] [address] Referring Physician Radiation Oncology 05/31/18 Lupillo Davenport MD [address] [place] [address] Referring Physician Radiation Oncology 05/31/18 Shawnee Mckinney MD [address] [facility] [address] [place] [address] Referring Physician Urology 06/03/18 Chicho Clayton MD [address] [facility] [address] [place] [address] Medical Oncologist/Hematologis t Medical Oncology 06/07/18 Newton Weeks MD [address] [facility] [address] [place] [address] Referring Physician Radiation Oncology 06/07/18 Maria Guadalupe Palacios RN Registered Nurse 06/10/18 Lupillo Davenport MD [address] [place] [address] [place] [address] Referring Physician Radiation Oncology 06/16/18 Itz Iyer MD [address] [address] Consulting Physician Urology 06/17/18 06/17/18 Itz Iyer MD [address] [place] [address] Consulting Physician Urology 06/18/18 06/18/18 Itz Iyer MD [address] [address] Consulting Physician Urology 06/18/18 06/18/18 Itz Iyer MD [address] [address] Consulting Physician Urology 06/22/18 06/22/18 Itz Iyer MD [address] [address] Consulting Physician Urology 07/01/18 07/01/18 Itz Iyer MD [address] [place] [address] Consulting Physician Urology 07/06/18 07/06/18 Danis Meza NP [address] [place] [address] Nurse Practitioner Urology 10/06/22 Antonette Owens NP [address] [place] [address] Nurse Practitioner Cardiovascular Disease 10/06/22 Aniceto Foley MD [address] [place] [address] Surgeon Vascular Surgery 10/31/22 documented as of this encounter "
--- OUTSIDE RECORDS SUMMARY | 2025-01-15 12:32 | XMS_ITS | Encounter Summary ---
Author Organization [facility] Address [address] [place] [address] Phone Care Team Providers Care Beer Maker Name Role Phone Fuentes Orellana MD Primary Care Provider Brent Dickinson DO Unavailable [phone] Faviola Jiménez AGENCY DIRECTOR, HEAD CHOPPER Unavailable Shawnee Mckinney MD Unavailable Chicho Clayton MD Unavailable Lai Lambert AGENCY DIRECTOR, HEAD CHOPPER Unavailable Kami Meneses MD Unavailable [phone] Anette Bond MD Unavailable [phone] Kay Gordon AGENCY DIRECTOR, HEAD CHOPPER Unavailable Kami Meneses MD Unavailable [phone] Kami Meneses MD Unavailable [phone] Reason for Visit * Reason Comments Medication Refill Encounter Details Date Type Department Care Team (Late st Contact Info) Description 11/12/2022 Refill [facility] - G[facility]enterology - [place] [address] [place] [address] Ingrid Mccloud Ashley, PAC [address] [place] [address] Medication Refill Social History Tobacco Use Types [...] [facility] [address] [place] [address] Kami Meneses MD [address], [address] [address] documented as of this encounter Visit Diagnoses Not on filedocumented in this encounter Care Teams Beer Maker Relationship Specialty Start Date End Date Fuentes Orellana MD [address] [place] [address] PCP - General Family Medicine 07/06/15 Brent Dickinson DO [address] [place] [address] Gastroenterology 06/27/16 Faviola Jiménez APRN, HEAD CHOPPER -[address] [place] [address] Nurse Practitioner Advanced Practice Nurse 07/22/16 Shawnee Mckinney MD [address] [facility] [address] [place] [address] Urologist Urology 06/07/19 Chicho Clayton MD [address] [facility] [address] [place] [address] Oncology 06/13/19 Lai Lambert APRN, HEAD CHOPPER [address] [place] [address] Nurse Practitioner Advanced Practice Nurse 02/10/23 Kami Meneses MD [address] [address] Consulting Physician Urology 06/16/23 Anette Bond MD [address] [place] [address] Consulting Physician Gastroenterology 12/25/22 Kay Gordon APRN, HEAD CHOPPER [address] [place] [address] Nurse Practitioner Advanced Practice Nurse 06/16/24 Kami Meneses MD [address] [address] Consulting Physician Urology 08/19/24 Kami Meneses MD [address] [address] Consulting Physician Urology 01/06/25 documented as of this encounter
--- OUTSIDE RECORDS SUMMARY | 2025-01-15 12:32 | XMS_ITS | Clinical Summary ---
Author Organization [facility] Address [address] [place] [address] Phone Care Team Providers Care Milker Machine Name Role Phone Fuentes Orellana MD Primary Care Provider [phone] Allergies No known active allergies Medications pantoprazole [...] 2024 Medical Devices Implanted Type Area Log Chipper Operator Device Identifier Shelf Expiration Date Model / Serial / Lot Ams 800 Urinary Control System(Penile Implant) Description:MRI conditional for 3T or less -danisha 01/04/19 Insurance MEDICARE PART A AND B [facility] [id number] Care Teams Milker Machine Relationship Specialty Start Date End Date Fuentes Orellana MD [address] [place] [address] PCP - General Family Practice 01/04/19
--- OUTSIDE RECORDS SUMMARY | 2025-01-15 12:32 | XMS_ITS | Encounter Summary ---
Author Organization [facility] Address [address] [place] [address] Phone Care Team Providers Care Waxer Floor Name Role Phone Fuentes Orellana MD Primary Care Provider [phone] Itz Iyer MD Unavailable [phone] Shawnee Mckinney MD Unavailable [phone] Chicho Clayton MD Unavailable Maria Guadalupe Palacios RN Unavailable Unava ilable Lupillo Davenport MD Unavailable [phone] Danis Meza LABORER WHARF Unavailable Antonette Owens NP Unavailable Aniceto Foley MD Unavailable [phone] Encounter Details Date Type Department Care [...] on file Legal Sex Male 12:32 AM TECHNICAL REP Gender Identity Not on file Sexual Orientation [...] on filedocumented in this encounter Care Teams Waxer Floor Relationship Specialty Start Date End Date Fuentes Orellana MD PCP - General 11/28/16 Itz Iyer MD [address] [place] [address] Consulting Physician Urology 05/31/18 Shawnee Mckinney MD [address] [facility] [address] [place] [address] Referring Physician Urology 06/03/18 Chicho Clayton MD [address] [place] [address] Medical Oncologist/Hematologis t Medical Oncology 06/07/18 Maria Guadalupe Palacios, RN Registered Nurse 06/10/18 Lupillo Davenport MD Referring Physician Radiation Oncology 06/16/18 Danis Meza NP [address] [place] [address] Nurse Practitioner Urology 10/06/22 Antonette Owens NP [address] [place] [address] Nurse Practitioner Cardiovascular Disease 10/06/22 Aniceto Foley MD [address] [place] [address] Surgeon Vascular Surgery 10/31/22 documented as of this encounter
--- OUTSIDE RECORDS SUMMARY | 2025-01-15 12:32 | XMS_ITS | Referral Summary ---
Author Organization [facility] [address] [facility] [address] [place] [address] Care Team Providers Care Negative Cutter Name Role Phone Fuentes Orellana MD Primary Care Provider Itz Iyer MD Unavailable [phone] Shawnee Mckinney MD Unavailable [phone] Chicho Clayton MD Unavailable Maria Guadalupe Palacios RN Unavailable Unava ilable Lupillo Davenport MD Unavailable [phone] Danis Meza PRINCIPAL NETWORK ENGINEER Unavailable [phone] Antonette Owens NP Unavailable Aniceto Foley MD Unavailable [phone] Encounters Date Type Department Care Team Description 12/09/2024 1:00 PM CDT Office Visit [facility] Cardiology [address] [place] [address] Kay Ward NP Coronary artery disease of [place] artery of [place] heart with stable angina pectoris (Primary Dx); Orthostatic hypotension; LVH (left ventricular hypertrophy); PVD (peripheral vascular disease); Preoperative cardiovascular examination 11/09/2024 5:14 AM CDT - 11/12/2024 2:30 PM CDT Hospital Encounter [id number] [place] [address] Kami Meneses MD Intrinsic urethral sphincter deficiency (Primary Dx) Discharge Disposition: Discharge to home, home health skilled care 11/10/2024 Telephone [facility] Home Care Services [address] [facility] [address] [place] [address] Gregor Cheryl 11/09/2024 7:30 AM CDT - 11/09/2024 10:00 AM CDT Surgery [facility] Operating Room [address] [place] [phone] Kami Meneses MD Cystoscopy 11/09/2024 7:30 AM CDT Anesthesia Event [facility] Operating Room [address] [place] [phone] Lai Gregg DO [place], Justin Kyle, TSERING 10/26/2024 12:45 PM NURSING EXECUTIVE Pre-Admission Testing [facility] Pre Anesthesia Testing [address] [place] [phone] Stress incontinence 10/20/2024 10:30 AM NURSING EXECUTIVE Office Visit [facility] Medical [facility] Cardiology [address] [place] [address] Kay Ward NP Coronary artery disease of [place] artery of [place] heart with stable angina pectoris (Primary Dx); [...] immediate release tabletIndicatio ns:Coronary artery disease involving [place] coronary artery of [place] heart without angina pectoris Take 1 tablet [...] (10/21/2022): Added automatically from request for surgery [id number] Assessment & Plan (10/30/2022 2:56 PM NURSING EXECUTIVE): - OR 3/2 for planned R CEA - OU status, Q2h NV/VS monitoring - Bedrest today, OOB/PT POD #1 - SBP goal 100-160, nicardipine for elevated BP - Continue aspirin and statin - Plan to stager home medications and resume overnight Atherosclerosis of [place] ar teries of extremities with intermittent claudication, bilateral legs 06/03/2022 Melanoma 01/10/2021 Anxiety 01/10/2021 DM (diabetes mellitus) 01/10/2021 Assessment & Plan (10/30/2022 9:59 AM NURSING EXECUTIVE): - A1c 7.6% 10/2022 - SSI while inpatient - CC diet when eating Elevated left ventricular end-diastolic pressure (LVEDP) 11/15/2019 Encounter for surgical after care following surgery of circulatory system 05/20/2019 Prostate cancer 09/10/2018 Assessment & Plan (10/27/2018 9:53 AM NURSING EXECUTIVE): Follows with urology, has his PSA monitored it is increasing, but still WNL 1.4 Assessment & Plan (09/22/2018 11:35 AM NURSING EXECUTIVE): Has close follow up with his oncologist. His PSA was slightly elevated on last check. Hyperlipidemia 09/21/2017 Assessment & Plan (06/30/2018 9:38 AM CDT): His last lipid panel was within acceptable range; he will continue on a high intensity statin. Assessment & Plan (09/21/2017 11:34 AM NURSING EXECUTIVE): Continue Lipitor 40 mg daily. Essential hypertension 07/20/2017 Assessment & Plan (10/30/2022 2:57 PM NURSING EXECUTIVE): - Tight BP goals post-procedure - Continue home medications as indicated by BP goals as above, staggering overnight for gentle BP control Assessment & Plan (10/27/2018 9:54 AM NURSING EXECUTIVE): Hypertension is unchanged. Dietary sodium restriction. Blood pressure will be reassessed in 4 weeks. Assessment & Plan (09/22/2018 11:38 AM NURSING EXECUTIVE): Hypertension remains elevated. He is increasing his [...] today Assessment & Plan (09/21/2017 11:33 AM NURSING EXECUTIVE): Blood pressure is well controlled today. Last visit we added HCTZ 12.5 mg daily. Continue current medications Assessment & Plan (08/10/2017 11:26 AM NURSING EXECUTIVE): Blood pressure is not controlled. Add hydrochlorothiazide 12.5 mg p.o. daily. He is compliant with medications but always add salt to food which I advised him not to do that. Assessment & Plan (07/20/2017 9:19 AM NURSING EXECUTIVE): Blood pressure remains uncontrolled. We will order renal Doppler ultrasound to rule out renal artery stenosis given the fact that he has peripheral vascular disease and coronary artery disease. I will increase amlodipine from 5-10 mg p.o. daily. If that does not control the blood pressure we will add hydrochlorothiazide 12.5 mg p.o. Daily. Coronary artery disease invo lving [place] coronary artery of [place] heart without angina pectoris 07/20/2017 Assessment & Plan (10/30/2022 9:58 AM NURSING EXECUTIVE): - Continue home medications as able - Maintained on Brilinta as an outpatient; held 1 week prior to OR - Will discuss with surgery team when to safely resume post-procedure Assessment & Plan (10/27/2018 9:59 AM NURSING EXECUTIVE): Coronary artery disease is improving with lifestyle modifications. Continue current treatment regimen. Cardiac status will be reassessed in 3 months. No chest pain. Minimal SOB. Continue asa, statin, brilinta Assessment & Plan (09/22/2018 11:36 AM NURSING EXECUTIVE): Coronary artery disease is unchanged. Regular aerobic [...] BB. Assessment & Plan (09/21/2017 11:33 AM NURSING EXECUTIVE): Continue aspirin, Brilinta, Toprol XL and atorvastatin. Assessment & Plan (08/10/2017 11:27 AM NURSING EXECUTIVE): Continue Brilinta and aspirin. Asymptomatic. Assessment & Plan (07/20/2017 9:19 AM NURSING EXECUTIVE): Continue aspirin, Brilinta, Lipitor , metoprolol PVD (peripheral vascular disease) 07/20/2017 Assessment & Plan (10/27/2018 9:21 AM NURSING EXECUTIVE): S/P bilateral ALVA angioplasty; right EIA angioplasty/stent 11/21/14. S/P aortoiliac angioplasty/stent 05/28/09. Continues on asa, statin and brilinta Assessment & Plan (09/21/2017 11:34 AM NURSING EXECUTIVE): He follows up with vascular surgery at [facility] Assessment & Plan (08/10/2017 11:27 AM NURSING EXECUTIVE): Renal ultrasound suggest more than 60% stenosis in the right renal artery and infrarenal stenosis 50-70%. He follows up with Dr. Foley from vascular surgery at [facility] Assessment & Plan (07/20/2017 9:20 AM NURSING EXECUTIVE): Patient will follow up with Dr. Foley from vascular surgery. He does have some claudication when he walks. Intrinsic urethral sphincter deficiency 06/08/20 15 Resolved Problems Problem Noted Date Diagnosed Date Resolved Date Dizzinesses 10/27/2018 02/09/2019 Assessment & Plan (10/27/2018 10:17 AM NURSING EXECUTIVE): Persistent dizziness. Has stopped caffeine intake. Has [...] implant or graft 6 02/09/2019 Atherosclerosis of [place] artery of extremity 04/15/20 16 02/09/2019 Assessment & Plan (09/22/2018 11:26 AM NURSING EXECUTIVE): 80% circumflex s/p RICHARD. Moderate 30 % LAD with bridging Impotence of organic origin 09/18/2015 02/09/2019 Urinary tract infection 01/18/201501/29 Incontinence 01/18/2015 02/09/2019 Stricture, urethra 07/31/2011 9 Overview (12/10/2017): Description: Dilation 06/09/11 Nocturia 11/28/2010 02/09/2019 Hypertension 05/16/2009 02/09/2019 Assessment & Plan (10/27/2018 10:11 AM NURSING EXECUTIVE): Hypertension is {improving/stable/worsenin}. {plan; hypertension for POC:2499440099} Blood pressure will be reassessed {plan; follow-up 2 weeks/4weeks/3months:[id number]}. Increase amolodipine to 10 mg Continue all [...] drink = 0.6 oz pu re alcohol) [facility] Utilities Answer Date Recorded In the past 12 months has [employer], gas, oil, or water [employer] threatened to shut off services in your [...] week 11/11/2024 How often do you attend [facility] or islam services? More than 4 times per year 11/11/2024 Do you belong to any clubs o r organizations such as congregational groups, unions, fraternal or athletic groups, or [...] time in the past [address] [facility], were you homeless or living in a longterm (including now)? No 11/11/2024 Personal Safety Answer Date Recorded Have you ever been in or are you currently in a harmful physical or emotional relationship or is someone making you feel afraid or unsafe? Denies 11/09/2024 Sex and Gender Information Value Date Recorded Sex Assigned at Not on file Legal Sex Male 12:32 AM NURSING EXECUTIVE Gender Identity Not on file Sexual Orientation [...] on file Medical Devices Implanted Type Area Water Hydrant Installer Device Identifier Shelf Expiration Date Model / [...] and 61 to 70 cm pressure-regulating balloon. [employer] Vascu-Guard 8x.8cm Peripheral Patch Vascular Bovine Pericardium Vg-[id number] - [id number] Implanted:Qty: 1 on 10/30/2022 by Aniceto Foley MD at [facility] Right: Carotid [employer] [id number] 07/09/2023 [id number]-[id number] / / [id number] [employer]upia Ams 800 Kit Accessory Sterile Disposable Latex Free Urinary [id number] - [id number] Implanted:Qty: 1 on 11/09/2024 by Kami Meneses MD at [facility] N/A: Urethra [employer] Sandra [id number] 03/09/2029 [id number] / / [id number] [employer] Sandra Cuff Urethral Ams 800 Inhibizone 3.5cm [id number] - [id number] Implanted:Qty: 1 on 11/09/2024 by Kami Meneses MD at [facility] N/A: Urethra [employer] Sandra [id number] 02/22/2026 [id number] / / [id number] [employer] Sandra Ams 800 Pressure Balloon Sphincter 61-70cu Cm Implant Urological [id number] - [id number] Implanted:Qty: 1 on 11/09/2024 by Kami Meneses MD at [facility] N/A: Abdomen [employer] Sandra [id number] 03/20/2029 [id number] / / [id number] [employer] Sandra Ams 800 Control Pump Sphincter Implant Urological Inhibizone [id number] - [id number] Implanted:Qty: 1 on 11/09/2024 by Kami Meneses MD at [facility] N/A: Scrotum [employer] Sandra [id number] 02/15/2026 [id number] / / [id number] Procedures Procedure Name Priority Date/Time Associated Diagnosis [...] DEVICE Routine 11/09/2024 9 :20 AM CDT IN AN PROCEDURE PLACEHOLDER Routine 11/09/2024 7:54 AM CDT IN AN ELECTIVE ENDOTRACHEAL AIRWAY Routine 11/09/2024 7:54 AM CDT ARTIFICIAL URINARY SPHINCTER 11/09/2024 7:32 AM CDT Stress incontinence CYSTOSCOPY 11/09/2024 7:32 AM CDT Stress incontinence POCT GLUCOSE DEVICE Routine 11/09/2024 6 :43 AM CDT URINALYSIS, MICROSCOPIC ONLY Routine 10/26/2024 1:43 PM NURSING EXECUTIVE Stress incontinence URINALYSIS AND REFLEX TO MICROSCOPIC AND CULTURE Routine 10/26/2024 1:43 PM NURSING EXECUTIVE Stress incontinence LIPID PANEL Routine 03/22/2024 10:23 AM CDT Coronary artery disease involving [place] coronary artery of [place] heart without angina pectoris CTA ABDOMINAL AORTA AND BILATERAL ILIOFEMORAL RUNOFF Schedule Routine, Read Routine (OP Routine) 12/15/2023 1:56 PM CDT PVD (peripheral vascular disease) HEMOGLOBIN A1C Routine 09/22/2023 12:19 PM NURSING EXECUTIVE Prostate cancer (HCC) from Last 3 Months or Most Recently Relevant to Health Maintenance Results * POCT glucose (11/12/2024 11:38 AM CDT) [facility] Glucose, POC 151 70 - 199 mg/dL Comment: For Glucose values <35 mg/dl when Hematocrit is >60 mg/dl,the test may not accurately detect significant hypoglycemia,and testing in the Laboratory should be considered if clinically indicated. Blood 11/12/2024 11:3 8 AM CDT 11/12/2024 11:38 AM CDT us Kami Gleason MD LAB POCT ORDERABLES - DEVICE F inal Result [facility] [address] [place] [address] * (ABNORMAL) eGFR (11/12/2024 8:15 [...] NP LAB BLOOD ORDERABLES Fi nal Result [facility] [address] [place] [address] * (ABNORMAL) Basic metabolic panel (11/12/2024 8:15 AM CDT) [facility] Sodium 138 135 - 145 mmol/L Potassium, pl 4.2 3.3 - 4.9 mmol/L [facility] Chloride 106 97 - 110 mmol/L [facility] CO2 21(L) 22 - 32 mmol/L [facility] Anion gap 11 2 - 15 mmol/L [facility] BUN 28(H) 6 - 25 mg/dL [facility] Creatinine 1.26 0.80 - 1.30 mg/dL [facility] Glucose 136 70 - 199 mg/dL [facility] Comment: Interpretive Data Fasting glucose >/= 126 [...] 2022. Calcium 9.2 8.5 - 10.3 mg/dL [facility] Blood 11/12/2024 8:15 AM CDT 11/12/2024 9:17 AM CDT us Kalina Coronado NP LAB BLOOD ORDERABLES Fi nal Result Performing Organization Address City/[facility]/ZIP Co de Phone Number [facility] [address] [place] [address] * POCT glucose (11/12/2024 5:49 AM CDT) Glucose, POC 125 70 - 199 mg/dL Comment: For Glucose values <35 mg/dl when Hematocrit is >60 mg/dl,the test may not accurately detect significant hypoglycemia,and testing in the Laboratory should be considered if clinically indicated. Blood 11/12/2024 5:49 AM CDT 11/12/2024 5:49 AM CDT us Kami Gleason MD LAB POCT ORDERABLES - DEVICE F inal Result [facility] [address] [place] [address] * (ABNORMAL) POCT glucose (11/11/2024 8:22 PM CDT) Glucose, POC 214(H) 70 - 199 mg/dL Comment: For Glucose values <35 mg/dl when Hematocrit is >60 mg/dl,the test may not accurately detect significant hypoglycemia,and testing in the Laboratory should be considered if clinically indicated. Blood 11/11/2024 8:2 2 PM CDT 11/11/2024 8:22 PM CDT [facility] LAB POCT ORDERABLES - DEVICE F inal Result Performing Organization Address [facility] de Phone Number [facility] [address] [facility] [place], [place] [id number] * POCT glucose (11/11/2024 5:14 PM CDT) Glucose, POC 127 70 - 199 mg/dL Comment: For Glucose values <35 mg/dl when Hematocrit is >60 mg/dl,the test may not accurately detect significant hypoglycemia,and testing in the Laboratory should be considered if clinically indicated. Blood 11/11/2024 5:14 PM CDT 11/11/2024 5:14 PM CDT [facility] LAB POCT ORDERABLES - DEVICE F inal Result Performing Organization Address [facility] de Phone Number [facility] [address] [place], [place] [id number] * POCT glucose (11/11/2024 11:29 AM CDT) Glucose, POC 144 70 - 199 mg/dL Comment: For Glucose values <35 mg/dl when Hematocrit is >60 mg/dl,the test may not accurately detect significant hypoglycemia,and testing in the Laboratory should be considered if clinically indicated. Specimen (Source) [id number]|2025-01-15 12:32:00|2025-01-15 12:32:00|XMS_ITS|BK[facility] DAEMON|External Medical Summaries|[id number]|" Oncology Summary Created on: January 15, 2025 Derek Freeman : 1950 Sex: Male Author Organization [facility] [address] Address [address] [place] [address] Care Team Providers Care Negative Cutter Name Role Phone Fuentes Orellana MD Primary Care Provider [phone] Itz Iyer MD Unavailable [phone] Shawnee Mckinney MD Unavailable [phone] Chicho Clayton MD Unavailable Maria Guadalupe Palacios RN Unavailable Unava ilable Lupillo Davenport MD Unavailable [phone] Danis Meza PRINCIPAL NETWORK ENGINEER Unavailable Antonette Owens NP Unavailable Aniceto Foley MD Unavailable [phone] Active Problems Problem Noted Date Diagnosed [...] (10/21/2022): Added automatically from request for surgery [id number] Assessment & Plan (10/30/2022 2:56 PM NURSING EXECUTIVE): - OR 3/2 for planned R CEA - OU status, Q2h NV/VS monitoring - Bedrest today, OOB/PT POD #1 - SBP goal 100-160, nicardipine for elevated BP - Continue aspirin and statin - Plan to stager home medications and resume overnight Atherosclerosis of [place] ar teries of extremities with intermittent claudication, bilateral legs 06/03/2022 Melanoma 01/10/2021 Anxiety 01/10/2021 DM (diabetes mellitus) 01/10/2021 Assessment & Plan (10/30/2022 9:59 AM NURSING EXECUTIVE): - A1c 7.6% 10/2022 - SSI while inpatient - CC diet when eating Elevated left ventricular end-diastolic pressure (LVEDP) 11/15/2019 Encounter for surgical after care following surgery of circulatory system 05/20/2019 Prostate cancer 09/10/2018 Assessment & Plan (10/27/2018 9:53 AM NURSING EXECUTIVE): Follows with urology, has his PSA monitored it is increasing, but still WNL 1.4 Assessment & Plan (09/22/2018 11:35 AM NURSING EXECUTIVE): Has close follow up with his oncologist. His PSA was slightly elevated on last check. Hyperlipidemia 09/21/2017 Assessment & Plan (06/30/2018 9:38 AM CDT): His last lipid panel was within acceptable range; he will continue on a high intensity statin. Assessment & Plan (09/21/2017 11:34 AM NURSING EXECUTIVE): Continue Lipitor 40 mg daily. Essential hypertension 07/20/2017 Assessment & Plan (10/30/2022 2:57 PM NURSING EXECUTIVE): - Tight BP goals post-procedure - Continue home medications as indicated by BP goals as above, staggering overnight for gentle BP control Assessment & Plan (10/27/2018 9:54 AM NURSING EXECUTIVE): Hypertension is unchanged. Dietary sodium restriction. Blood pressure will be reassessed in 4 weeks. Assessment & Plan (09/22/2018 11:38 AM NURSING EXECUTIVE): Hypertension remains elevated. He is increasing his [...] today Assessment & Plan (09/21/2017 11:33 AM NURSING EXECUTIVE): Blood pressure is well controlled today. Last visit we added HCTZ 12.5 mg daily. Continue current medications Assessment & Plan (08/10/2017 11:26 AM NURSING EXECUTIVE): Blood pressure is not controlled. Add hydrochlorothiazide 12.5 mg p.o. daily. He is compliant with medications but always add salt to food which I advised him not to do that. Assessment & Plan (07/20/2017 9:19 AM NURSING EXECUTIVE): Blood pressure remains uncontrolled. We will order renal Doppler ultrasound to rule out renal artery stenosis given the fact that he has peripheral vascular disease and coronary artery disease. I will increase amlodipine from 5-10 mg p.o. daily. If that does not control the blood pressure we will add hydrochlorothiazide 12.5 mg p.o. Daily. Coronary artery disease invo lving [place] coronary artery of [place] heart without angina pectoris 07/20/2017 Assessment & Plan (10/30/2022 9:58 AM NURSING EXECUTIVE): - Continue home medications as able - Maintained on Brilinta as an outpatient; held 1 week prior to OR - Will discuss with surgery team when to safely resume post-procedure Assessment & Plan (10/27/2018 9:59 AM NURSING EXECUTIVE): Coronary artery disease is improving with lifestyle modifications. Continue current treatment regimen. Cardiac status will be reassessed in 3 months. No chest pain. Minimal SOB. Continue asa, statin, brilinta Assessment & Plan (09/22/2018 11:36 AM NURSING EXECUTIVE): Coronary artery disease is unchanged. Regular aerobic [...] BB. Assessment & Plan (09/21/2017 11:33 AM NURSING EXECUTIVE): Continue aspirin, Brilinta, Toprol XL and atorvastatin. Assessment & Plan (08/10/2017 11:27 AM NURSING EXECUTIVE): Continue Brilinta and aspirin. Asymptomatic. Assessment & Plan (07/20/2017 9:19 AM NURSING EXECUTIVE): Continue aspirin, Brilinta, Lipitor , metoprolol PVD (peripheral vascular disease) 07/20/2017 Assessment & Plan (10/27/2018 9:21 AM NURSING EXECUTIVE): S/P bilateral ALVA angioplasty; right EIA angioplasty/stent 11/21/14. S/P aortoiliac angioplasty/stent 05/28/09. Continues on asa, statin and brilinta Assessment & Plan (09/21/2017 11:34 AM NURSING EXECUTIVE): He follows up with vascular surgery at [facility] Assessment & Plan (08/10/2017 11:27 AM NURSING EXECUTIVE): Renal ultrasound suggest more than 60% stenosis in the right renal artery and infrarenal stenosis 50-70%. He follows up with Dr. Foley from vascular surgery at [facility] Assessment & Plan (07/20/2017 9:20 AM NURSING EXECUTIVE): Patient will follow up with Dr. Foley [...] 02/09/2019 Assessment & Plan (10/27/2018 10:17 AM NURSING EXECUTIVE): Persistent dizziness. Has stopped caffeine intake. Has [...] implant or graft 6 02/09/2019 Atherosclerosis of [place] artery of extremity 04/15/20 16 02/09/2019 Assessment & Plan (09/22/2018 11:26 AM NURSING EXECUTIVE): 80% circumflex s/p RICHARD. Moderate 30 % LAD with bridging Impotence of organic origin 09/18/2015 02/09/2019 Urinary tract infection 01/18/201501/29 Incontinence 01/18/2015 02/09/2019 Stricture, urethra 07/31/2011 9 Overview (12/10/2017): Description: Dilation 06/09/11 Nocturia 11/28/2010 02/09/2019 Hypertension 05/16/2009 02/09/2019 Assessment & Plan (10/27/2018 10:11 AM NURSING EXECUTIVE): Hypertension is {improving/stable/worsenin}. {plan; hypertension for POC:[id number]} Blood pressure will be reassessed {plan; follow-up 2 weeks/4weeks/3months:[id number]}. Increase amolodipine to 10 mg Continue all [...]
[2025-01-15 13:05] LABS: Basophils Absolute Auto 0.1 K/mm3 (0.0-0.1); Basophils Percent Auto 0.5 % (0.2-1.2); Eosinophils Absolute Auto 0.1 K/mm3 (0-0.3); Eosinophils Percent Auto 1.5 % (0-4.4); Hematocrit 32.3 % (42.0-52.0); Hemoglobin 10.5 g/dL (14.0-18.0); Immature Granulocyte Absolute 0.05 K/mm3 (0.00-0.031); Immature Granulocyte Percent A 0.5 % (0-0.5); Lymphocytes Absolute Auto 1.56 K/mm3 (0.9-3.2); Lymphocytes Percent Auto 17.1 % (18.3-44.2); Mean Corpuscular HGB Conc 32.5 g/dl (32-36); Mean Corpuscular Hemoglobin 30.4 pg (26-34); Mean Corpuscular Volume 93.6 fl (80-100); Mean Platelet Volume 10.6 fl (7.4-10.4); Monocytes Absolute Auto 0.6 K/mm3 (0.1-0.6); Neutrophils Absolute Auto 6.8 K/mm3 (1.3-6.7); Neutrophils Percent Auto 74.4 % (45.5-73.1); Platelet Count Result 190 k/mm3 (150-375); Red Blood Count 3.45 M/mm3 (4.6-6.20); White Blood Count 9.1 K/mm3 (4.5-10.0)
[2025-01-15 13:11] LABS: Add Urine Microscopic? YES; Appearance Urine Clear (Clear); Bacteria Urine None Seen /hpf; Bilirubin Urine Negative (Negative); Blood Urine Negative (Negative); Color Urine Yellow (Yellow); Glucose Urine UA Negative (Negative); Ketones Urine Negative (Negative); Leukocyte Esterase Ur Negative LEU/UL (Negative); Nitrate Urine Negative (Negative); Protein Urine 1+ mg/dL (Negative); RBC Urine 0-2 /hpf (0-2); Specific Grav Ur 1.017 (1.001-1.035); Squamous Epithelial Cell Urine None Seen /hpf (Few); Urobilinogen Urine 0.2 mg/dL (<2.0); WBC Urine 0-5 /hpf (0-3)
[2025-01-15 13:15] LABS: Alanine Aminotransferase 25 U/L (6-50); Albumin Level 3.8 g/dL (3.5-5.1); Alkaline Phosphatase 81 U/L (38-126); Anion Gap 7 mmol/L (4-12); Aspartate Amino Transferase 33 U/L (17-59); Bilirubin,Total 0.3 mg/dL (0.2-1.3); Blood Urea Nitrogen 33 mg/dL (9-20); Calcium 10.1 mg/dL (8.4-10.2); Carbon Dioxide 28 mmol/L (22-30); Chloride 104 mmol/L (98-107); Estimated CRCL calculation 32 ml/min; Estimated Glomerular Filt Rate 46; Glucose 165 mg/dL (65-110); Potassium 3.7 mmol/L (3.4-5.0); Sodium 139 mmol/L (137-145)
[2025-01-15] MEDS: SODIUM CHLORIDE 0.9% IV 500 ML 999 ML IV CONT (13:58)
[2025-01-15] MEDS: diazePAM INJ (*CRX) 10 MG/2 ML SYRINGE 2.5 MG IV PUSH (15:04)
[2025-01-15] MEDS: PHENAZOPYRIDINE HCL 100 MG TABLET PO (15:04)
[2025-01-15 16:23] VITALS: BP 139/64; PULSE 67; RESP 16; O2SAT 100
== END 2025-01-15 16:24 | disposition home or self-care (01) ==
PROVIDERS: Emergency Medicine; Emergency Provider Student in an Organized Health Care Education/Training Program; PCP Family Medicine
DX: R10.84 Generalized abdominal pain (principal); G89.18 Other acute postprocedural pain; R42 Dizziness and giddiness; I44.0 Atrioventricular block, first degree; Z85.46 Personal history of malignant neoplasm of prostate; E78.5 Hyperlipidemia, unspecified; I25.10 Atherosclerotic heart disease of native coronary artery without angina pectoris; Z86.718 Personal history of other venous thrombosis and embolism; Z79.82 Long term (current) use of aspirin; D64.9 Anemia, unspecified; E11.65 Type 2 diabetes mellitus with hyperglycemia; N18.9 Chronic kidney disease, unspecified; I12.9 Hypertensive chronic kidney disease with stage 1 through stage 4 chronic kidney disease, or unspecified chronic kidney disease; E11.22 Type 2 diabetes mellitus with diabetic chronic kidney disease; I70.0 Atherosclerosis of aorta; K40.20 Bilateral inguinal hernia, without obstruction or gangrene, not specified as recurrent
CPT/HCPCS: 36415; 74177; 80053; 81001; 81003; 82948; 85025; 87070; 87075; 87205; 93005; 96374; 99284; A9270; J3360; J7040; Q9967

== ENCOUNTER 2025-01-18 12:28 | Outpatient (CLI) | payer MEDICARE, SELFPAY ==
--- NOTE | ~2025-01-18 | US_ITS ---
EXAMINATION: US FNA w image guidance, US FNA additional DATE: 01/18/2025 13:27 INDICATION: A couple TI RADS 4 left thyroid nodules TECHNIQUE: A time-out was performed to verify the patient's name, date of , and procedure to be performed . The procedure and its benefits and risks were discussed with the patient. Risks specifically discus sed included bleeding and infection. The patient understood the risks and agreed to proceed. The neck was prepped and draped in the usual sterile manner. 5 mL 1% lidocaine was used for local anesthesia . Attention was first turned to the inferior nodule. 4 passes were made with a 25G needle into the l esion. Appropriate needle location was documented with continuous sonographic guidance. Attention wa s then turned to the more superior nodule. An additional 4 passes were made with a 20 5G needle into the lesion utilizing continuous sonographic guidance. A sterile bandage was applied. There were no i mmediate complications. FINDINGS: Grayscale ultrasound images demonstrate biopsy needles advanced into a 1.2 cm nodule at the inferior left thyroid. Subsequent images demonstrate biopsy needle advanced into the second 1.5 cm nodule of c oncern at the superior left thyroid. IMPRESSION: 1. Successful ultrasound-guided fine needle aspirations of the thyroid nodules of concern identified on prior ultrasound measuring 1.2 cm at the inferior left thyroid and 1.5 cm at the superior left th yroid. Reviewed, dictated and finalized at location A. IMPRESSION: 1. Successful ultrasound-guided fine needle aspirations of the thyroid nodules of concern identified on prior ultrasound measuring 1.2 cm at the inferior lef t thyroid and 1.5 cm at the superior left thyroid.
--- OUTSIDE RECORDS SUMMARY | 2025-01-18 12:33 | XMS_ITS | Encounter Summary ---
Author Organization [facility] Address [address] [place] [address] Phone Care Team Providers Care Burnishing Machine Operator Name Role Phone Fuentes Orellana MD Primary Care Provider Brent Dickinson DO Unavailable [phone] Faviola Jiménez ASSISTANT DEPARTMENT MANAGER, COMMUNICATIONS CONTROLLER Unavailable Shawnee Mckinney MD Unavailable Chicho Clayton MD Unavailable Lai Lambert ASSISTANT DEPARTMENT MANAGER, COMMUNICATIONS CONTROLLER Unavailable [phone] Kami Meneses MD Unavailable [phone] Anette Bond MD Unavailable [phone] Kay Gordon ASSISTANT DEPARTMENT MANAGER, COMMUNICATIONS CONTROLLER Unavailable Kami Meneses MD Unavailable [phone] Kami Meneses MD Unavailable Reason for Visit * Reason Comments Medication Refill Encounter Details Date Type Department Care Team (Late st Contact Info) Description 11/12/2022 Refill [facility] - [facility]ology - [place] [address] [place] [address] Ingrid Mccloud Ashley, PAC [address] [place] [address] Medication Refill Social History Tobacco Use Types [...] 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 Not on file Not [...] [facility] [address] [place] [address] Kami Meneses MD [address], [address] [address] documented as of this encounter Visit Diagnoses Not on filedocumented in this encounter Care Teams Burnishing Machine Operator Relationship Specialty Start Date End Date Fuentes Orellana MD [address] [address] PCP - General Family Medicine 07/06/15 Brent Dickinson DO [address] [place] [address] Gastroenterology 06/27/16 Faviola Jiménez APRN, COMMUNICATIONS CONTROLLER -[address] [place] [address] Nurse Practitioner Advanced Practice Nurse 07/22/16 Shawnee Mckinney MD [address] [facility] [address] [place] [address] Urologist Urology 06/07/19 Chicho Clayton MD [address] [facility] 7 [place] [address] Oncology 06/13/19 Lai Lambert APRN, COMMUNICATIONS CONTROLLER #2 [place] [address] Nurse Practitioner Advanced Practice Nurse 02/10/23 Kami Meneses MD #[address] [address] Consulting Physician Urology 06/16/23 Anette Bond MD #2 [place] [address] Consulting Physician Gastroenterology 12/25/22 Kay Gordon APRN, COMMUNICATIONS CONTROLLER #[address] [place] [address] Nurse Practitioner Advanced Practice Nurse 06/16/24 Kami Meneses MD #[address] [address] Consulting Physician Urology 08/19/24 Kami Meneses MD #[address] [address] Consulting Physician Urology 01/06/25 documented as of this encounter
--- OUTSIDE RECORDS SUMMARY | 2025-01-18 12:33 | XMS_ITS | Encounter Summary ---
Author Organization [facility] Address [address] [place] [address] Phone Care Team Providers Care Rf Manager Name Role Phone Funetes Orellana MD Primary Care Provider [phone] Itz Iyer MD Unavailable [phone] Shawnee Mckinney MD Unavailable [phone] Chicho Clayton MD Unavailable Maria Guadalupe Palacios RN Unavailable Unava ilable Lupillo Davenport MD Unavailable [phone] Danis Meza ROLL GRINDER OPERATOR Unavailable Antonette Owens NP Unavailable Aniceto Foley MD Unavailable [phone] Encounter Details Date Type Department Care [...] file Legal Sex Male 12:32 AM DIRECTOR LONG TERM CARE Gender Identity Not on file Sexual Orientation [...] on filedocumented in this encounter Care Teams Rf Manager Relationship Specialty Start Date End Date Fuentes Orellana MD PCP - General 11/28/16 Itz Iyer MD [address] [place] [address] Consulting Physician Urology 05/31/18 Shawnee Mckinney MD [address] [facility] [address] [place] [address] Referring Physician Urology 06/03/18 Chicho Clayton MD [address] [place] [address] Medical Oncologist/Hematologis t Medical Oncology 06/07/18 Maria Guadalupe Palacios, RN Registered Nurse 06/10/18 Lupillo Davenport MD Referring Physician Radiation Oncology 06/16/18 Danis Meza NP [address] [place] [address] Nurse Practitioner Urology 10/06/22 Antonette Owens NP [address] [place] [address] Nurse Practitioner Cardiovascular Disease 10/06/22 Aniceto Foley MD [id number] [place] [address] Surgeon Vascular Surgery 10/31/22 documented as of this encounter
--- OUTSIDE RECORDS SUMMARY | 2025-01-18 12:33 | XMS_ITS | Encounter Summary ---
Author Organization [facility] Address [address] [place] [address] Phone Care Team Providers Care Floral Department Specialist Name Role Phone Fuentes Orellana MD Primary Care Provider Brent Dickinson DO Unavailable [phone] Faviola Jiménez TRANSCRIPTION COORDINATOR, CLIENT SUCCESS DIRECTOR Unavailable Shawnee Mckinney MD Unavailable Chicho Clayton MD Unavailable Lai Lambert TRANSCRIPTION COORDINATOR, CLIENT SUCCESS DIRECTOR Unavailable [phone] Kami Meneses MD Unavailable [phone] Anette Bond MD Unavailable [phone] Kay Gordon TRANSCRIPTION COORDINATOR, CLIENT SUCCESS DIRECTOR Unavailable Kami Meneses MD Unavailable [phone] Kami Meneses MD Unavailable [phone] Encounter Details Date Type Department Care Team (Late st Contact Info) Description 12/16/2024 Telephone [facility] [address] [place] [address] Kami Meneses MD [address] [address] Social History Tobacco Use Types Packs/Day Years [...] Job 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 Chicho Clayton at [facility] for prostate. * Telephone Encounter - Kami Meneses MD - 12/16/2024 11:45 AM CDT Can you ask the patient who follows him for his prostate cancer? documented in this encounter Plan of Treatment Upcoming Encounters Date Type Department Care Team (Late st Contact Info) Description 01/27/2025 2:15 PM CDT Office Visit [facility] [address] [place] [address] Kami Meneses MD [address] [address] documented as of this encounter Visit Diagnoses Not on filedocumented in this encounter Care Teams Floral Department Specialist Relationship Specialty Start Date End Date Fuentes Orellana MD [address] [address] PCP - General Family Medicine 07/06/15 Brent Dickinson DO [address] [address] Gastroenterology 06/27/16 Faviola Jiménez APRN, CLIENT SUCCESS DIRECTOR [address] [address] Nurse Practitioner Advanced Practice Nurse 07/22/16 Shawnee Mckinney MD [address] [facility] [address] [place] [address] Urologist Urology 06/07/19 Chicho Clayton MD [address] [facility] [address] [place] [address] Oncology 06/13/19 Lai Lambert APRN, CLIENT SUCCESS DIRECTOR #2 [place] [address] Nurse Practitioner Advanced Practice Nurse 02/10/23 Kami Meneses MD #[address] [address] Consulting Physician Urology 06/16/23 Anette Bond MD #2 [place] [address] Consulting Physician Gastroenterology 12/25/22 Kay Gordon APRN, CLIENT SUCCESS DIRECTOR #2 [place] [address] Nurse Practitioner Advanced Practice Nurse 06/16/24 Kami Meneses MD #[address] [address] Consulting Physician Urology 08/19/24 Kami Meneses MD #[address] [address] Consulting Physician Urology 01/06/25 documented as of this encounter
--- OUTSIDE RECORDS SUMMARY | 2025-01-18 12:33 | XMS_ITS | Encounter Summary ---
Author Organization [facility] Address [address] [place] [address] Phone Care Team Providers Care Jewel Supervisor Name Role Phone Fuentes Orellana MD Primary Care Provider Brent Dickinson DO Unavailable [phone] Faviola Jiménez FIT MODEL, MATCHER OPERATOR Unavailable Shawnee Mckinney MD Unavailable Chicho Clayton MD Unavailable Lai Lambert FIT MODEL, MATCHER OPERATOR Unavailable Kami Meneses MD Unavailable [phone] Anette Bond MD Unavailable [phone] Kay Gordon FIT MODEL, MATCHER OPERATOR Unavailable Kami Meneses MD Unavailable [phone] Kami Meneses MD Unavailable [phone] Reason for Visit * Reason Comments Medication Refill Encounter Details Date Type Department Care Team (Late st Contact Info) Description 10/15/2021 Refill [facility] - Gastroenterology - [place] [address] [place] [address] Ingrid Mccloud Ashley, PAC [address] [place] [address] Medication Refill Social History Tobacco Use Types [...] Job 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 CING TECHNICIAN documented in this encounter Plan of Treatment Upcoming Encounters Date Type Department Care Team (Late st Contact Info) Description 01/27/2025 2:15 PM CDT Office Visit [facility] #[address] [place] [address] Kami Meneses MD #[address] [address] documented as of this encounter Visit Diagnoses Not on filedocumented in this encounter Care Teams Jewel Supervisor Relationship Specialty Start Date End Date Fuentes Orellana MD [address] [place] [address] PCP - General Family Medicine 07/06/15 Brent Dickinson DO [address] [address] Gastroenterology 06/27/16 Faviola Jiménez APRN, MATCHER OPERATOR [address] [facility] [place] [address] Nurse Practitioner Advanced Practice Nurse 07/22/16 Shawnee Mckinney MD [address] [facility] [address] [place] [address] Urologist Urology 06/07/19 Chicho Clayton MD [address] [facility] [address] [place] [address] Oncology 06/13/19 Lai Lambert APRN, MATCHER OPERATOR #[address] [place] [address] Nurse Practitioner Advanced Practice Nurse 02/10/23 Kami Meneses MD #[address] [address] Consulting Physician Urology 06/16/23 Anette Bond MD #2 [place] [address] Consulting Physician Gastroenterology 12/25/22 Kay Gordon APRN, MATCHER OPERATOR #2 [place] [address] Nurse Practitioner Advanced Practice Nurse 06/16/24 Kami Meneses MD #[address] [place] [address] Consulting Physician Urology 08/19/24 Kami Meneses MD [address], [facility] [address] [place] [address] Consulting Physician Urology 01/06/25 documented as of this encounter
--- OUTSIDE RECORDS SUMMARY | 2025-01-18 12:33 | XMS_ITS | Encounter Summary ---
Author Organization [facility] Address [address] [place] [address] Phone Care Team Providers Care Store Lead Name Role Phone Fuentes Orellana MD Primary Care Provider Brent Dickinson DO Unavailable [phone] Faviola Jiménez PLANT TECHNICIAN/CONTROL ROOM OPERATOR, VEHICLE SERVICE AGENT Unavailable Shawnee Mckinney MD Unavailable Chicho Clayton MD Unavailable Lai Lambert PLANT TECHNICIAN/CONTROL ROOM OPERATOR, VEHICLE SERVICE AGENT Unavailable [phone] Kami Meneses MD Unavailable [phone] Anette Bond MD Unavailable [phone] Kay Gordon PLANT TECHNICIAN/CONTROL ROOM OPERATOR, VEHICLE SERVICE AGENT Unavailable Kami Meneses MD Unavailable [phone] Kami Meneses MD Unavailable [phone] Encounter Details Date Type Department Care Team (Late st Contact Info) Description 08/22/2024 Telephone [facility] [address] [place] [address] Kami Meneses MD #[address], [facility] [address] [place] [address] Social History Tobacco Use Types Packs/Day Years [...] 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 ISION DANCER * Telephone Encounter - Elidia Dill - 08/29/2024 8:20 AM CST Please see Dr. Otto message. ISION DANCER * Telephone Encounter - Kami Meneses MD [...] This needs to be done at [facility] by ca. He will need a urine culture 14 days prior to surgery. Hibiclens shower the night before morning of surgery, vancomycin and gentamicin for antibiotics ISION DANCER ISION DANCER documented in this encounter Plan of Treatment Upcoming Encounters Date Type Department Care Team (Late st Contact Info) Description 01/27/2025 2:15 PM CDT Office Visit [facility] #[address] [place] [address] Kami Meneses MD #[address] [address] documented as of this encounter Visit Diagnoses Not on filedocumented in this encounter Care Teams Store Lead Relationship Specialty Start Date End Date Fuentes Orellana MD [address] [place] [address] PCP - General Family Medicine 07/06/15 Brent Dickinson DO [address] [address] Gastroenterology 06/27/16 Faviola Jiménez, PLANT TECHNICIAN/CONTROL ROOM OPERATOR, VEHICLE SERVICE AGENT [address] [place] [address] Nurse Practitioner Advanced Practice Nurse 07/22/16 Shawnee Mckinney MD [address] [facility] [address] [place] [address] Urologist Urology 06/07/19 Chicho Clayton MD [address] [facility] 7 [place] [address] Oncology 06/13/19 Lai Lambert APRN, VEHICLE SERVICE AGENT [address] [place] [address] Nurse Practitioner Advanced Practice Nurse 02/10/23 Kami Meneses MD [address] [address] Consulting Physician Urology 06/16/23 Anette Bond MD #[address] [place] [address] Consulting Physician Gastroenterology 12/25/22 Kay Gordon APRN, VEHICLE SERVICE AGENT #2 [place] [address] Nurse Practitioner Advanced Practice Nurse 06/16/24 Kami Meneses MD [address] [address] Consulting Physician Urology 08/19/24 Kami Meneses MD [address] [address] Consulting Physician Urology 01/06/25 documented as of this encounter
--- OUTSIDE RECORDS SUMMARY | 2025-01-18 12:34 | XMS_ITS ---
Author Organization [facility] [address] Address [address] [place] [address] Care Team Providers Care Angle Bender Name Role Phone Fuentes Orellana MD Primary Care Provider [phone] Itz Iyer MD Unavailable [phone] Shawnee Mckinney MD Unavailable [phone] Chicho Clayton MD Unavailable Maria Guadalupe Palacios RN Unavailable Unava ilable Lupillo Davenport MD Unavailable [phone] Danis Meza RV REPAIRER Unavailable Antonette Owens NP Unavailable Aniceto Foley MD Unavailable [phone] Active Problems Problem Noted Date Diagnosed [...] (10/21/2022): Added automatically from request for surgery [id number] Assessment & Plan (10/30/2022 2:56 PM HOME CARE ADMINISTRATOR): - OR 3/2 for planned R CEA - OU status, Q2h NV/VS monitoring - Bedrest today, OOB/PT POD #1 - SBP goal 100-160, nicardipine for elevated BP - Continue aspirin and statin - Plan to stager home medications and resume overnight Atherosclerosis of [place] ar teries of extremities with intermittent claudication, bilateral legs 06/03/2022 Melanoma 01/10/2021 Anxiety 01/10/2021 DM (diabetes mellitus) 01/10/2021 Assessment & Plan (10/30/2022 9:59 AM HOME CARE ADMINISTRATOR): - A1c 7.6% 10/2022 - SSI while inpatient - CC diet when eating Elevated left ventricular end-diastolic pressure (LVEDP) 11/15/2019 Encounter for surgical after care following surgery of circulatory system 05/20/2019 Prostate cancer 09/10/2018 Assessment & Plan (10/27/2018 9:53 AM HOME CARE ADMINISTRATOR): Follows with urology, has his PSA monitored it is increasing, but still WNL 1.4 Assessment & Plan (09/22/2018 11:35 AM HOME CARE ADMINISTRATOR): Has close follow up with his oncologist. His PSA was slightly elevated on last check. Hyperlipidemia 09/21/2017 Assessment & Plan (06/30/2018 9:38 AM CDT): His last lipid panel was within acceptable range; he will continue on a high intensity statin. Assessment & Plan (09/21/2017 11:34 AM HOME CARE ADMINISTRATOR): Continue Lipitor 40 mg daily. Essential hypertension 07/20/2017 Assessment & Plan (10/30/2022 2:57 PM HOME CARE ADMINISTRATOR): - Tight BP goals post-procedure - Continue home medications as indicated by BP goals as above, staggering overnight for gentle BP control Assessment & Plan (10/27/2018 9:54 AM HOME CARE ADMINISTRATOR): Hypertension is unchanged. Dietary sodium restriction. Blood pressure will be reassessed in 4 weeks. Assessment & Plan (09/22/2018 11:38 AM HOME CARE ADMINISTRATOR): Hypertension remains elevated. He is increasing his [...] today Assessment & Plan (09/21/2017 11:33 AM HOME CARE ADMINISTRATOR): Blood pressure is well controlled today. Last visit we added HCTZ 12.5 mg daily. Continue current medications Assessment & Plan (08/10/2017 11:26 AM HOME CARE ADMINISTRATOR): Blood pressure is not controlled. Add hydrochlorothiazide 12.5 mg p.o. daily. He is compliant with medications but always add salt to food which I advised him not to do that. Assessment & Plan (07/20/2017 9:19 AM HOME CARE ADMINISTRATOR): Blood pressure remains uncontrolled. We will order renal Doppler ultrasound to rule out renal artery stenosis given the fact that he has peripheral vascular disease and coronary artery disease. I will increase amlodipine from 5-10 mg p.o. daily. If that does not control the blood pressure we will add hydrochlorothiazide 12.5 mg p.o. Daily. Coronary artery disease invo lving [place] coronary artery of [place] heart without angina pectoris 07/20/2017 Assessment & Plan (10/30/2022 9:58 AM HOME CARE ADMINISTRATOR): - Continue home medications as able - Maintained on Brilinta as an outpatient; held 1 week prior to OR - Will discuss with surgery team when to safely resume post-procedure Assessment & Plan (10/27/2018 9:59 AM HOME CARE ADMINISTRATOR): Coronary artery disease is improving with lifestyle modifications. Continue current treatment regimen. Cardiac status will be reassessed in 3 months. No chest pain. Minimal SOB. Continue asa, statin, brilinta Assessment & Plan (09/22/2018 11:36 AM HOME CARE ADMINISTRATOR): Coronary artery disease is unchanged. Regular aerobic [...] BB. Assessment & Plan (09/21/2017 11:33 AM HOME CARE ADMINISTRATOR): Continue aspirin, Brilinta, Toprol XL and atorvastatin. Assessment & Plan (08/10/2017 11:27 AM HOME CARE ADMINISTRATOR): Continue Brilinta and aspirin. Asymptomatic. Assessment & Plan (07/20/2017 9:19 AM HOME CARE ADMINISTRATOR): Continue aspirin, Brilinta, Lipitor , metoprolol PVD (peripheral vascular disease) 07/20/2017 Assessment & Plan (10/27/2018 9:21 AM HOME CARE ADMINISTRATOR): S/P bilateral ALVA angioplasty; right EIA angioplasty/stent 11/21/14. S/P aortoiliac angioplasty/stent 05/28/09. Continues on asa, statin and brilinta Assessment & Plan (09/21/2017 11:34 AM HOME CARE ADMINISTRATOR): He follows up with vascular surgery at [facility] Assessment & Plan (08/10/2017 11:27 AM HOME CARE ADMINISTRATOR): Renal ultrasound suggest more than 60% stenosis in the right renal artery and infrarenal stenosis 50-70%. He follows up with Dr. Foley from vascular surgery at [facility] Assessment & Plan (07/20/2017 9:20 AM HOME CARE ADMINISTRATOR): Patient will follow up with Dr. Foley [...] 02/09/2019 Assessment & Plan (10/27/2018 10:17 AM HOME CARE ADMINISTRATOR): Persistent dizziness. Has stopped caffeine intake. Has [...] implant or graft 6 02/09/2019 Atherosclerosis of [place] artery of extremity 04/15/20 16 02/09/2019 Assessment & Plan (09/22/2018 11:26 AM HOME CARE ADMINISTRATOR): 80% circumflex s/p RICHARD. 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 {plan; hypertension for POC:[id number]} Blood pressure will be reassessed {plan; follow-up 2 weeks/4weeks/3months:[id number]}. Increase amolodipine to 10 mg Continue all [...]
--- OUTSIDE RECORDS SUMMARY | 2025-01-18 12:34 | XMS_ITS | Encounter Summary ---
Author Organization [facility] Address [address] [place] [address] Phone Care Team Providers Care Senior Oracle Pl Sql Developer Name Role Phone Fuentes Orellana MD Primary Care Provider [phone] Itz Iyer MD Unavailable [phone] Lupillo Davenport MD Unavailable [phone] Lupillo Davenport MD Unavailable [phone] Shawnee Mckinney MD Unavailable [phone] Chicho Clayton MD Unavailable Newton Weeks MD Unavailable Maria Guadalupe Palacios RN Unavailable Unava ilable Lupillo Davenport MD Unavailable [phone] Itz Iyer MD Unavailable [phone] Itz Iyer MD Unavailable [phone] Itz Iyer MD Unavailable [phone] Itz Iyer MD Unavailable [phone] Itz Iyer MD Unavailable [phone] Itz Iyer MD Unavailable [phone] Danis Meza RADIO FREQUENCY TECHNICIAN Unavailable Antonette Owens RADIO FREQUENCY TECHNICIAN Unavailable Aniceto Foley MD Unavailable [phone] Encounter Details Date Type Department Care [...] on file Legal Sex Male 12:32 AM SENIOR JAVA J2EE DEVELOPER Gender Identity Not on file Sexual Orientation [...] on filedocumented in this encounter Care Teams Senior Oracle Pl Sql Developer Relationship Specialty Start Date End Date Fuentes Orellana MD PCP - General 11/28/16 Itz Iyer MD [address] [facility] [address] [place] [address] Consulting Physician Urology 05/31/18 Lupillo Davenport MD [address] [place] [address] Referring Physician Radiation Oncology 05/31/18 Lupillo Davenport MD [address] [place] [address] Referring Physician Radiation Oncology 05/31/18 Shawnee Mckinney MD [address] [facility] [address] [place] [address] Referring Physician Urology 06/03/18 Chicho Clayton MD [address] [facility] [address] [place] [address] Medical Oncologist/Hematologis t Medical Oncology 06/07/18 Newton Weeks MD [address] [facility] [address] [place] [address] Referring Physician Radiation Oncology 06/07/18 Maria Guadalupe Palacios, RN Registered Nurse 06/10/18 Lupillo Davenport MD [address] [place] [address] [place] [address] Referring Physician Radiation Oncology 06/16/18 Itz Iyer MD [address] [place] [address] Consulting Physician Urology 06/17/18 06/17/18 Itz Iyer MD [address] [address] Consulting Physician Urology 06/18/18 06/18/18 Itz Iyer MD [address] [address] Consulting Physician Urology 06/18/18 06/18/18 Itz Iyer MD [address] [place] [address] Consulting Physician Urology 06/22/18 06/22/18 Itz Iyer MD [address] [place] [address] Consulting Physician Urology 07/01/18 07/01/18 Itz Iyer MD [address] [place] [address] Consulting Physician Urology 07/06/18 07/06/18 Danis Meza NP [address] [place] [address] Nurse Practitioner Urology 10/06/22 Antonette Owens NP [address] [place] [address] Nurse Practitioner Cardiovascular Disease 10/06/22 Aniceto Foley MD [address] [place] [address] Surgeon Vascular Surgery 10/31/22 documented as of this encounter
--- OUTSIDE RECORDS SUMMARY | 2025-01-18 12:34 | XMS_ITS | Clinical Summary ---
Author Organization [facility] Address [address] [place] [address] Phone Care Team Providers Care Loan Closer Name Role Phone Fuentes Orellana MD Primary Care Provider [phone] Allergies No known active allergies Medications pantoprazole [...] series) 2024 Medical Devices Implanted Type Area Wastewater Treatment Plant Attendant Device Identifier Shelf Expiration Date Model / Serial / Lot Ams 800 Urinary Control System(Penile Implant) Description:MRI conditional for 3T or less -danisha 01/04/19 Insurance MEDICARE PART A AND B [facility] [id number] Care Teams Loan Closer Relationship Specialty Start Date End Date Fuentes Orellana MD [address] [place] [address] PCP - General Family Practice 01/04/19
--- OUTSIDE RECORDS SUMMARY | 2025-01-18 12:34 | XMS_ITS | Encounter Summary ---
Author Organization [facility] Address [address] [place] [address] Phone Care Team Providers Care Electrical Solderer Name Role Phone Fuentes Orellana MD Primary Care Provider Brent Dickinson DO Unavailable [phone] Faviola Jiménez PLUMBING ASSEMBLER, CARRIER DRIVER Unavailable Shawnee Mckinney MD Unavailable Chicho Clayton MD Unavailable Lai Lambert PLUMBING ASSEMBLER, CARRIER DRIVER Unavailable [phone] Kami Meneses MD Unavailable [phone] Anette Bond MD Unavailable [phone] Kay Gordon PLUMBING ASSEMBLER, CARRIER DRIVER Unavailable Kami Meneses MD Unavailable [phone] Kami Meneses MD Unavailable [phone] Encounter Details Date Type Department Care Team (Late st Contact Info) Description 01/13/2025 Telephone [facility] [address] [place] [address] Kami Meneses MD #[address] [address] Social History Tobacco Use Types Packs/Day Years [...] 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 on file Not on file Not [...] Description 01/27/2025 2:15 PM CDT Office Visit [facility] [address] [place] [address] Kami Meneses MD [address] [address] documented as of this encounter Visit Diagnoses Not on filedocumented in this encounter Care Teams Electrical Solderer Relationship Specialty Start Date End Date Fuentes Orellana MD [address] [place] [address] PCP - General Family Medicine 11/6/15 Brent Dickinson DO [address] [place] [address] Gastroenterology 06/27/16 Faviola Jiménez APRN, CARRIER DRIVER [address] [place] [address] Nurse Practitioner Advanced Practice Nurse 07/22/16 Shawnee Mckinney MD [address] [facility] [address] [place] [address] Urologist Urology 06/07/19 Chicho Clayton MD 49[address] [facility] [address] [place] [address] Oncology 06/13/19 Lai Lambert APRN, CARRIER DRIVER [address] [place] [address] Nurse Practitioner Advanced Practice Nurse 02/10/23 Kami Meneses MD #[address] [address] Consulting Physician Urology 06/16/23 Anette Bond MD #2 [place] [address] Consulting Physician Gastroenterology 12/25/22 Kay Gordon APRN, CARRIER DRIVER [address] [place] [address] Nurse Practitioner Advanced Practice Nurse 06/16/24 Kami Meneses MD #[address] [address] [place] [address] Consulting Physician Urology 08/19/24 Kami Meneses MD #[address], [facility] [address] [place] [address] Consulting Physician Urology 01/06/25 documented as of this encounter
--- OUTSIDE RECORDS SUMMARY | 2025-01-18 12:34 | XMS_ITS | Encounter Summary ---
Author Organization [facility] Address [address] [facility] [address] [place] [address] Care Team Providers Care Deaf Teacher Name Role Phone Fuentes Orellana MD Primary Care Provider [phone] Fuentes Orellana MD Primary Care Provider [phone] Itz Iyer MD Unavailable [phone] Lupillo Davenport MD Unavailable [phone] Lupillo Davenport MD Unavailable [phone] Shawnee Mckinney MD Unavailable [phone] Chicho Clayton MD Unavailable Newton Weeks MD Unavailable [phone] Maria Guadalupe Palacios RN Unavailable Unava ilable Lupillo Davenport MD Unavailable [phone] Itz Iyer MD Unavailable [phone] Itz Iyer MD Unavailable [phone] Itz Iyer MD Unavailable [phone] Itz Iyer MD Unavailable [phone] Itz Iyer MD Unavailable [phone] Itz Iyer MD Unavailable [phone] Danis Meza DECISION SUPPORT MANAGER Unavailable [phone] Rater, Antonette DECISION SUPPORT MANAGER Unavailable Aniceto Foley MD Unavailable [phone] Encounter Details Date Type Department Care Team (Late st Contact Info) Description 11/18/2016 Orders Only [facility] Provider, MD Katie [place] [place] [address] Social History Tobacco Use Types Packs/Day Years Used Date Smoking Tobacco: Never Assessed Sex and Gender Information Value Date Recorded Sex Assigned at Not on file Legal Sex Male 12:32 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 Gender Identity Not on file Sexual Orientation [...] on filedocumented in this encounter Care Teams Deaf Teacher Relationship Specialty Start Date End Date Feuntes Orellana MD PCP - General 11/28/16 Fuentes Orellana MD PCP - General 07/14/07 11/27/16 Itz Iyer MD [address] [facility] [address] [place] [id number] Consulting Physician Urology 05/31/18 Lupillo Davenport MD [address] [place] [address] Referring Physician Radiation Oncology 05/31/18 Lupillo Davenport MD [address] [place] [address] Referring Physician Radiation Oncology 05/31/18 Shawnee Mckinney MD [address]60 [facility] [address] [place] [address] Referring Physician Urology 06/03/18 Chicho Clayton MD [address] [facility] [address] [place] [address] Medical Oncologist/Hematologis t Medical Oncology 06/07/18 Newton Weeks MD [address] [facility] [address] [place] [address] Referring Physician Radiation Oncology 06/07/18 Maria Guadalupe Palacios, RN Registered Nurse 06/10/18 Lupillo Davenport MD [address] [place] [address] Referring Physician Radiation Oncology 06/16/18 Itz Iyer MD [address] [address] Consulting Physician Urology 06/17/18 06/17/18 Itz Iyer MD [address] [address] Consulting Physician Urology 06/18/18 06/18/18 Itz Iyer MD [address] [place] [address] Consulting Physician Urology 06/18/18 06/18/18 Itz Iyer MD [address] [place] [address] Consulting Physician Urology 06/22/18 06/22/18 Itz Iyer MD [address] [place] [address] Consulting Physician Urology 07/01/18 07/01/18 Itz Iyer MD [address] [place] [address] Consulting Physician Urology 07/06/18 07/06/18 Danis Meza NP [address] [place] [address] Nurse Practitioner Urology 10/06/22 Antonette Owens NP [address] [place] [address] Nurse Practitioner Cardiovascular Disease 10/06/22 Aniceto Foley MD [address] [place] [address] Surgeon Vascular Surgery 10/31/22 documented as of this encounter
--- OUTSIDE RECORDS SUMMARY | 2025-01-18 12:34 | XMS_ITS | Encounter Summary ---
Author Organization [facility] Address [address] [place] [address] Phone Care Team Providers Care Indigo Vat Tender Cloth Name Role Phone Fuentes Orellana MD Primary Care Provider [phone] Brent Dickinson DO Unavailable [phone] Faviola Jiménez FIELD SERVICE ENGINEER, SOCIAL MEDIA ANALYST Unavailable Shawnee Mckinney MD Unavailable Chicho Clayton MD Unavailable aLi Lambert FIELD SERVICE ENGINEER, SOCIAL MEDIA ANALYST Unavailable [phone] Kami Meneses MD Unavailable [phone] Anette Bond MD Unavailable [phone] Kay Gordon FIELD SERVICE ENGINEER, SOCIAL MEDIA ANALYST Unavailable Kami Meneses MD Unavailable Kami Meneses MD Unavailable [phone] Reason for Visit * Reason Comments Medication Refill Encounter Details Date Type Department Care Team (Late st Contact Info) Description 03/25/2021 Refill [facility] - Gastroenterology - [place] [address] [place] [address] Ingrid Mccloud Ashley, PAC [address] [place] [address] Medication Refill Social History Tobacco Use Types [...] 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 difficile Rule-Out 04/10/2021 04/10/20212020 12:16 AM CDT documented as of this encounter Care Teams Indigo Vat Tender Cloth Relationship Specialty Start Date End Date Fuentes Orellana MD [address] [place] [address] PCP - General Family Medicine 07/06/15 Brent Dickinson DO [address] [place] [address] Gastroenterology 06/27/16 Faviola Jiménez APRN, SOCIAL MEDIA ANALYST [address] [place] [address] Nurse Practitioner Advanced Practice Nurse 07/22/16 Shawnee Mckinney MD [address] [facility] [address] [place] [address] Urologist Urology 06/07/19 Chicho Clayton MD [address] [facility] [address] [place] [address] Oncology 06/13/19 Lai Lambert APRN, SOCIAL MEDIA ANALYST [address] [place] [address] Nurse Practitioner Advanced Practice Nurse 02/10/23 Kami Meneses MD #[address] [address] Consulting Physician Urology 06/16/23 Anette Bond MD #[address] [place] [address] Consulting Physician Gastroenterology 12/25/22 Kay Gordon APRN, SOCIAL MEDIA ANALYST #[address] [place] [address] Nurse Practitioner Advanced Practice Nurse 06/16/24 Kami Meneses MD [address] [address] Consulting Physician Urology 08/19/24 Kami Meneses MD [address] [address] Consulting Physician Urology 01/06/25 documented as of this encounter
--- OUTSIDE RECORDS SUMMARY | 2025-01-18 12:34 | XMS_ITS | Referral Summary ---
Author Organization [facility] [address] [facility] [address] [place] [address] Care Team Providers Care Shipping And Receiving Specialist Name Role Phone Fuentes Orellana MD Primary Care Provider Itz Iyer MD Unavailable [phone] Shawnee Mckinney MD Unavailable [phone] Chicho Clayton MD Unavailable Maria Guadalupe Palacios RN Unavailable Unava ilable Lupillo Davenport MD Unavailable [phone] Danis Meza MOTION PICTURE NARRATOR Unavailable Antonette Owens NP Unavailable Aniceto Foley MD Unavailable [phone] Encounters Date Type Department Care Team Description 12/09/2024 1:00 PM CDT Office Visit [facility] Cardiology [address] [place] [address] Kay Ward NP Coronary artery disease of [place] artery of [place] heart with stable angina pectoris (Primary Dx); Orthostatic hypotension; LVH (left ventricular hypertrophy); PVD (peripheral vascular disease); Preoperative cardiovascular examination 11/09/2024 5:14 AM CDT - 11/12/2024 2:30 PM CDT Hospital Encounter [id number] [place] [address] Kami Meneses MD Intrinsic urethral sphincter deficiency (Primary Dx) Discharge Disposition: Discharge to home, home health skilled care 11/10/2024 Telephone [facility] Home Care Services [address] [facility] [address] [place] [address] GregorCheryl 11/09/2024 7:30 AM CDT - 11/09/2024 10:00 AM CDT Surgery [facility] Operating Room [address] [place] [phone] Kami Meneses MD Cystoscopy 11/09/2024 7:30 AM CDT Anesthesia Event [facility] Operating Room [address] [place] [phone] Lai Gregg, Jorge Platt, TSERING 10/26/2024 12:45 PM SHEET PILE HAMMER OPERATOR Pre-Admission Testing [facility] Pre Anesthesia Testing [address] [place] [id number] Stress incontinence from Last 3 Months Allergies No known [...] immediate release tabletIndicatio ns:Coronary artery disease involving [place] coronary artery of [place] heart without angina pectoris Take 1 tablet [...] (10/21/2022): Added automatically from request for surgery [id number] Assessment & Plan (10/30/2022 2:56 PM SHEET PILE HAMMER OPERATOR): - OR 3/2 for planned R CEA - OU status, Q2h NV/VS monitoring - Bedrest today, OOB/PT POD #1 - SBP goal 100-160, nicardipine for elevated BP - Continue aspirin and statin - Plan to stager home medications and resume overnight Atherosclerosis of [place] ar teries of extremities with intermittent claudication, bilateral legs 06/03/2022 Melanoma 01/10/2021 Anxiety 01/10/2021 DM (diabetes mellitus) 01/10/2021 Assessment & Plan (10/30/2022 9:59 AM SHEET PILE HAMMER OPERATOR): - A1c 7.6% 10/2022 - SSI while inpatient - CC diet when eating Elevated left ventricular end-diastolic pressure (LVEDP) 11/15/2019 Encounter for surgical after care following surgery of circulatory system 05/20/2019 Prostate cancer 09/10/2018 Assessment & Plan (10/27/2018 9:53 AM SHEET PILE HAMMER OPERATOR): Follows with urology, has his PSA monitored it is increasing, but still WNL 1.4 Assessment & Plan (09/22/2018 11:35 AM SHEET PILE HAMMER OPERATOR): Has close follow up with his oncologist. His PSA was slightly elevated on last check. Hyperlipidemia 09/21/2017 Assessment & Plan (06/30/2018 9:38 AM CDT): His last lipid panel was within acceptable range; he will continue on a high intensity statin. Assessment & Plan (09/21/2017 11:34 AM SHEET PILE HAMMER OPERATOR): Continue Lipitor 40 mg daily. Essential hypertension 07/20/2017 Assessment & Plan (10/30/2022 2:57 PM SHEET PILE HAMMER OPERATOR): - Tight BP goals post-procedure - Continue home medications as indicated by BP goals as above, staggering overnight for gentle BP control Assessment & Plan (10/27/2018 9:54 AM SHEET PILE HAMMER OPERATOR): Hypertension is unchanged. Dietary sodium restriction. Blood pressure will be reassessed in 4 weeks. Assessment & Plan (09/22/2018 11:38 AM SHEET PILE HAMMER OPERATOR): Hypertension remains elevated. He is increasing [...] today Assessment & Plan (09/21/2017 11:33 AM SHEET PILE HAMMER OPERATOR): Blood pressure is well controlled today. Last visit we added HCTZ 12.5 mg daily. Continue current medications Assessment & Plan (08/10/2017 11:26 AM SHEET PILE HAMMER OPERATOR): Blood pressure is not controlled. Add hydrochlorothiazide 12.5 mg p.o. daily. He is compliant with medications but always add salt to food which I advised him not to do that. Assessment & Plan (07/20/2017 9:19 AM SHEET PILE HAMMER OPERATOR): Blood pressure remains uncontrolled. We will order renal Doppler ultrasound to rule out renal artery stenosis given the fact that he has peripheral vascular disease and coronary artery disease. I will increase amlodipine from 5-10 mg p.o. daily. If that does not control the blood pressure we will add hydrochlorothiazide 12.5 mg p.o. Daily. Coronary artery disease invo lving [place] coronary artery of [place] heart without angina pectoris 07/20/2017 Assessment & Plan (10/30/2022 9:58 AM SHEET PILE HAMMER OPERATOR): - Continue home medications as able - Maintained on Brilinta as an outpatient; held 1 week prior to OR - Will discuss with surgery team when to safely resume post-procedure Assessment & Plan (10/27/2018 9:59 AM SHEET PILE HAMMER OPERATOR): Coronary artery disease is improving with lifestyle modifications. Continue current treatment regimen. Cardiac status will be reassessed in 3 months. No chest pain. Minimal SOB. Continue asa, statin, brilinta Assessment & Plan (09/22/2018 11:36 AM SHEET PILE HAMMER OPERATOR): Coronary artery disease is unchanged. Regular [...] BB. Assessment & Plan (09/21/2017 11:33 AM SHEET PILE HAMMER OPERATOR): Continue aspirin, Brilinta, Toprol XL and atorvastatin. Assessment & Plan (08/10/2017 11:27 AM SHEET PILE HAMMER OPERATOR): Continue Brilinta and aspirin. Asymptomatic. Assessment & Plan (07/20/2017 9:19 AM SHEET PILE HAMMER OPERATOR): Continue aspirin, Brilinta, Lipitor , metoprolol PVD (peripheral vascular disease) 07/20/2017 Assessment & Plan (10/27/2018 9:21 AM SHEET PILE HAMMER OPERATOR): S/P bilateral ALVA angioplasty; right EIA angioplasty/stent 11/21/14. S/P aortoiliac angioplasty/stent 05/28/09. Continues on asa, statin and brilinta Assessment & Plan (09/21/2017 11:34 AM SHEET PILE HAMMER OPERATOR): He follows up with vascular surgery at [facility] Assessment & Plan (08/10/2017 11:27 AM SHEET PILE HAMMER OPERATOR): Renal ultrasound suggest more than 60% stenosis in the right renal artery and infrarenal stenosis 50-70%. He follows up with Dr. Foley from vascular surgery at [facility] Assessment & Plan (07/20/2017 9:20 AM SHEET PILE HAMMER OPERATOR): Patient will follow up with Dr. Foley from vascular surgery. He does have some claudication when he walks. Intrinsic urethral sphincter deficiency 06/08/20 15 Resolved Problems Problem Noted Date Diagnosed Date Resolved Date Dizzinesses 10/27/2018 02/09/2019 Assessment & Plan (10/27/2018 10:17 AM SHEET PILE HAMMER OPERATOR): Persistent dizziness. Has stopped caffeine intake. [...] implant or graft 6 02/09/2019 Atherosclerosis of [place] artery of extremity 04/15/20 16 02/09/2019 Assessment & Plan (09/22/2018 11:26 AM SHEET PILE HAMMER OPERATOR): 80% circumflex s/p RICHARD. Moderate 30 % LAD with bridging Impotence of organic origin 09/18/2015 02/09/2019 Urinary tract infection 01/18/201501/29 Incontinence 01/18/2015 02/09/2019 Stricture, urethra 07/31/2011 9 Overview (12/10/2017): Description: Dilation 06/09/11 Nocturia 11/28/2010 02/09/2019 Hypertension 05/16/2009 02/09/2019 Assessment & Plan (10/27/2018 10:11 AM SHEET PILE HAMMER OPERATOR): Hypertension is {improving/stable/worsenin}. {plan; hypertension for POC:[id number]} Blood pressure will be reassessed {plan; follow-up 2 weeks/4weeks/3months:[id number]}. Increase amolodipine to 10 mg Continue all [...] drink = 0.6 oz pu re alcohol) [facility] Utilities Answer Date Recorded In the past 12 months has [employer], gas, oil, or water [employer] threatened to shut off services in your [...] often do you attend chur ch or spiritism services? More than 4 times per year 11/11/2024 Do you belong to any clubs o r organizations such as muslim groups, unions, fraternal or athletic groups, or [...] were you homeless or living in a penitentiary (including now)? No 11/11/2024 Personal Safety Answer Date Recorded Have you ever been in or are you currently in a harmful physical or emotional relationship or is someone making you feel afraid or unsafe? Denies 11/09/2024 Sex and Gender Information Value Date Recorded Sex Assigned at Not on file Legal Sex Male 12:32 AM SHEET PILE HAMMER OPERATOR Gender Identity Not on file Sexual [...] on file Medical Devices Implanted Type Area Moveman Device Identifier Shelf Expiration Date Model / [...] Peripheral Patch Vascular Bovine Pericardium [id number]-[id number] - [id number] Implanted:Qty: 1 on 10/30/2022 by Aniceto Foley MD at [facility] Right: Carotid [facility] Sandra [id number] 07/09/2023 [id number] / / [id number] [employer] Sandra Ams 800 Kit Accessory Sterile Disposable Latex Free Urinary [id number] - [id number] Implanted:Qty: 1 on 11/09/2024 by Kami Meneses MD at [facility] N/A: Urethra [employer] Sandra [id number] 03/09/2029 [id number] / / [id number] [employer] Sandra Cuff Urethral Ams 800 Inhibizone 3.5cm [id number] - [id number] Implanted:Qty: 1 on 11/09/2024 by Kami Meneses MD at [facility] N/A: Urethra [employer] Sandra [id number] 02/22/2026 [id number] / / [id number] [employer] Sandra Ams 800 Pressure Balloon Sphincter 61-70cu Cm Implant Urological [id number] - [id number] Implanted:Qty: 1 on 11/09/2024 by Kami Meneses MD at [facility] N/A: Abdomen [employer] Sandra [id number] 03/20/2029 [id number] / / [id number] [employer] Sandra Ams 800 Control Pump Sphincter Implant Urological Inhibizone [id number] - [id number] Implanted:Qty: 1 on 11/09/2024 by Kami Meneses MD at [facility] N/A: Scrotum [employer] Sandra [id number] 02/15/2026 [id number] / / [id number] Procedures Procedure Name Priority Date/Time Associated Diagnosis [...] DEVICE Routine 11/09/2024 9 :20 AM CDT MO AN PROCEDURE PLACEHOLDER Routine 11/09/2024 7:54 AM CDT MO AN ELECTIVE ENDOTRACHEAL AIRWAY Routine 11/09/2024 7:54 AM CDT ARTIFICIAL URINARY SPHINCTER 11/09/2024 7:32 AM CDT Stress incontinence CYSTOSCOPY 11/09/2024 7:32 AM CDT Stress incontinence POCT GLUCOSE DEVICE Routine 11/09/2024 6 :43 AM CDT URINALYSIS, MICROSCOPIC ONLY Routine 10/26/2024 1:43 PM SHEET PILE HAMMER OPERATOR Stress incontinence URINALYSIS AND REFLEX TO MICROSCOPIC AND CULTURE Routine 10/26/2024 1:43 PM SHEET PILE HAMMER OPERATOR Stress incontinence LIPID PANEL Routine 03/22/2024 10:23 AM CDT Coronary artery disease involving [place] coronary artery of [place] heart without angina pectoris CTA ABDOMINAL AORTA AND BILATERAL ILIOFEMORAL RUNOFF Schedule Routine, Read Routine (OP Routine) 12/15/2023 1:56 PM CDT PVD (peripheral vascular disease) HEMOGLOBIN A1C Routine 09/22/2023 12:19 PM SHEET PILE HAMMER OPERATOR Prostate cancer (HCC) from Last 3 [...] ORDERABLES - DEVICE F inal Result [facility] [address] [place] [address] * (ABNORMAL) eGFR (11/12/2024 8:15 AM CDT) Pathologist [facility] eGFR 59(L) >=60 mL/min/1. 73 m2 Comment: [...] Coronado NP LAB BLOOD ORDERABLES nal Result [facility] [address] [place] [address] * (ABNORMAL) Basic metabolic panel (11/12/2024 8:15 AM CDT) Sodium 138 135 - 145 mmol/L Potassium, pl 4.2 3.3 - 4.9 mmol/L [facility] Chloride 106 97 - 110 mmol/L [facility] CO2 21(L) 22 - 32 mmol/L [facility] Anion gap 11 2 - 15 mmol/L [facility] BUN 28(H) 6 - 25 mg/dL [facility] Creatinine 1.26 0.80 - 1.30 mg/dL [facility] Glucose 136 70 - 199 mg/dL [facility] Comment: Interpretive Data Fasting glucose >/= 126 [...] 2022. Calcium 9.2 8.5 - 10.3 mg/dL [facility] Blood 11/12/2024 8:15 AM CDT 11/12/2024 9:17 AM CDT Kalina Coronado NP LAB BLOOD ORDERABLES Fi nal Result Performing Organization Address [facility] Co de Phone Number [facility] [address] [place] [address] * POCT glucose (11/12/2024 5:49 AM CDT) [...] DEVICE F inal Result Performing Organization Address [facility] Co de Phone Number [facility] [address] [place] [place] [address] * (ABNORMAL) POCT glucose (11/11/2024 8:22 PM [...] DEVICE F inal Result Performing Organization Address [facility]/ZIP Co de Phone Number [facility] [address] [place] [address] * POCT glucose (11/11/2024 5:14 PM CDT) Glucose, POC 127 70 - 199 mg/dL Comment: For Glucose values <35 mg/dl when Hematocrit is >60 mg/dl,the test may not accurately detect significant hypoglycemia,and testing in the Laboratory should be considered if clinically indicated. Blood 11/11/2024 5:14 PM CDT 11/11/2024 5:14 PM CDT [facility] LAB POCT ORDERABLES - DEVICE F inal Result Performing Organization Address [facility] Co de Phone Number [facility] [address] [place] [address] * POCT glucose (11/11/2024 11:29 AM CDT) [...] DEVICE F inal Result Performing Organization Address [facility] Co de Phone Number [facility] [address] [place] [address] * (ABNORMAL) eGFR (11/11/2024 7:48 AM CDT) [...] MD LAB BLOOD ORDERABLES Final Res ult [facility] [address] [place] [address] * Differential, auto (11/11/2024 7:48 AM CDT) Neutrophil abs 5.4 1.5 - 6.5 K/cumm Imm gran abs 0.0 0.0 - 0.1 K/cumm [facility] Lymphocyte abs 1.8 0.8 - 3.3 K/cumm [facility] Monocyte abs 0.8 0.2 - 0.8 K/cumm [facility] Eosinophil abs 0.2 0.0 - 0.5 K/cumm [facility] Basophil abs 0.0 0.0 - 0.1 K/cumm [facility] Neutrophil pct 65.8 % [facility] Comment: Interpretive Data Percent cell count reference ranges are not reported, since discordance with absolute values may lead to misinterpretation of CBC data. Current Interpretive Data was last revised on 2017. Imm gran pct 0.5 % [facility] Comment: Interpretive Data Percent cell count reference ranges are not reported, since discordance with absolute values may lead to misinterpretation of CBC data. Current Interpretive Data was last revised on 2017. Lymphocyte pct 21.7 % [facility] Comment: Interpretive Data Percent cell count reference ranges are not reported, since discordance with absolute values may lead to misinterpretation of CBC data. Current Interpretive Data was last revised on 2017. Monocyte pct 10.0 % [facility] Comment: Interpretive Data Percent cell count reference ranges are not reported, since discordance with absolute values may lead to misinterpretation of CBC data. Current Interpretive Data was last revised on 2017. Eosinophil pct 1.8 % [facility] Comment: Interpretive Data Percent cell count reference ranges are not reported, since discordance with absolute values may lead to misinterpretation of CBC data. Current Interpretive Data was last revised on 2017. Basophil pct 0.2 % [facility] Comment: Interpretive Data Percent cell count reference ranges are not reported, since discordance with absolute values may lead to misinterpretation of CBC data. Current Interpretive Data was last revised on 2017. Blood 11/11/2024 7:48 AM CDT 11/11/2024 8:16 AM CDT us Kalina Coronado NP LAB BLOOD ORDERABLES Critical access hospital Result [facility] [address] [place] [address] * (ABNORMAL) CBC with auto differential (11/11/2024 7:48 AM CDT) WBC 8.2 3.8 - 9.9 K/cumm Hgb 11.1(L) 13.0 - 17.5 g/dL [facility] Hct 34.8(L) 38.9 - 50.3 % [facility] Plt 175 150 - 400 K/cumm [facility] MPV 11.0 9.1 - 12.3 fL [facility] RBC 3.63(L) 4.30 - 5.80 M/cumm [facility] MCV 95.9 81.3 - 96.4 fL [facility] MCH 30.6 27.1 - 33.3 pg [facility] MCHC 31.9(L) 32.3 - 35.7 g/dL [facility] RDW CV 14.2 11.1 - 14.9 % [facility] RDW SD 50.2(H) 35.7 - 48.1 fL [facility] NRBC abs 0.00 0.00 - 0.01 K/cumm [facility] Blood 11/11/2024 7:48 AM CDT 11/11/2024 8:16 AM CDT us Kalina Coronado NP LAB BLOOD ORDERABLES Fi nal Result Performing Organization Address [facility]/ZIP Co de Phone Number [facility] [address] Department of [employer] [place], [place] [id number] * Gentamicin level random (11/11/2024 7:48 AM CDT) Pathologist [facility] Gentamicin random 9.8 mcg/mL Comment: Interpretive Data No reference ranges have been established for random drug levels. Current Interpretive Data was last revised on 2020. Blood 11/11/2024 7:48 AM CDT 11/11/2024 8:16 AM CDT us Kami Gleason MD LAB BLOOD ORDERABLES Final Res ult Performing Organization Address [facility] Co de Phone Number [facility] [address] Department of [employer] [place], [place] [id number] * (ABNORMAL) Basic metabolic panel (11/11/2024 7:48 AM CDT) Sodium 134(L) 135 - 145 mmol/L Potassium, pl 4.0 3.3 - 4.9 mmol/L [facility] Chloride 101 97 - 110 mmol/L [facility] CO2 24 22 - 32 mmol/L [facility] Anion gap 9 2 - 15 mmol/L [facility] BUN 35(H) 6 - 25 mg/dL [facility] Creatinine 1.50(H) 0.80 - 1.30 mg/dL [facility] Glucose 136 70 - 199 mg/dL [facility] Comment: Interpretive Data Fasting glucose >/= 126 [...] 2022. Calcium 9.4 8.5 - 10.3 mg/dL [facility] Blood 11/11/2024 7:48 AM CDT 11/11/2024 8:16 AM CDT Kami Gleason MD LAB BLOOD ORDERABLES Final Res ult Performing Organization Address City/[facility]/ZIP Co de Phone Number [facility] [address] [place] [place] [address] * POCT glucose (11/11/2024 6:41 AM CDT) [...] City/[facility]/ZIP Co de Phone Number [facility] [address] [place] [address] * POCT glucose (11/10/2024 8:11 PM CDT) Glucose, POC 179 70 - 199 mg/dL Comment: For Glucose values <35 mg/dl when Hematocrit is >60 mg/dl,the test may not accurately detect significant hypoglycemia,and testing in the Laboratory should be considered if clinically indicated. Blood 11/10/2024 8:11 PM CDT 11/10/2024 8:[address] [facility] LAB POCT ORDERABLES - DEVICE F inal Result Performing Organization Address [facility] Co de Phone Number [facility] [address] [place] [place] [address] * POCT glucose (11/10/2024 4:46 PM CDT) Glucose, POC 134 70 - 199 mg/dL Comment: For Glucose values <35 mg/dl when Hematocrit is >60 mg/dl,the test may not accurately detect significant hypoglycemia,and testing in the Laboratory should be considered if clinically indicated. Blood 11/10/2024 4:46 PM CDT 11/10/2024 4:[address] [facility] LAB POCT ORDERABLES - DEVICE F inal Result Performing Organization Address [facility] de Phone Number [facility] [address] [place] [place] [address] * POCT glucose (11/10/2024 12:00 PM CDT) Glucose, POC 98 70 - 199 mg/dL Comment: For Glucose values <35 mg/dl when Hematocrit is >60 mg/dl,the test may not accurately detect significant hypoglycemia,and testing in the Laboratory should be considered if clinically indicated. Blood 11/10/2024 12:0 0 PM CDT 11/10/2024 12:00 PM CDT [facility] LAB POCT ORDERABLES - DEVICE F inal Result Performing Organization Address [facility] Co de Phone Number [facility] [address] Department [place] [address] * POCT glucose (11/10/2024 7:38 AM CDT) Glucose, POC 112 70 - 199 mg/dL Comment: For Glucose values <35 mg/dl when Hematocrit is >60 mg/dl,the test may not accurately detect significant hypoglycemia,and testing in the Laboratory should be considered if clinically indicated. Blood 11/10/2024 7:38 AM CDT 11/10/2024 7:38 AM CDT [facility] LAB POCT ORDERABLES - DEVICE F inal Result Performing Organization Address [facility] Co de Phone Number [facility] [address] [facility] [place] [employer] [address] * (ABNORMAL) POCT glucose (11/09/2024 8:32 PM CDT) Glucose, POC 222(H) 70 - 199 mg/dL Comment: For Glucose values <35 mg/dl when Hematocrit is >60 mg/dl,the test may not accurately detect significant hypoglycemia,and testing in the Laboratory should be considered if clinically indicated. Blood 11/09/2024 8:32 PM CDT 11/09/2024 8:32 PM CDT [facility] LAB POCT ORDERABLES - DEVICE F inal Result Performing Organization Address [facility] Co de Phone Number [facility] [address] [place] [address] * POCT glucose (11/09/2024 5:35 PM CDT) [...] DEVICE F inal Result Performing Organization Address [facility]/ZIP Co de Phone Number [facility] [address] Department of [employer] [place], [place] [id number] * (ABNORMAL) eGFR (11/09/2024 4:58 PM CDT) [...] City/[facility]/ZIP Co de Phone Number [facility] [address] [place] [place] [address] * (ABNORMAL) Basic metabolic panel (11/09/2024 4:58 PM CDT) Sodium 134(L) 135 - 145 mmol/L Potassium, pl 4.6 3.3 - 4.9 mmol/L [facility] [facility] Chloride 101 97 - 110 mmol/L [facility] CO2 21(L) 22 - 32 mmol/L [facility] Anion gap 12 2 - 15 mmol/L [facility] BUN 29(H) 6 - 25 mg/dL [facility] Creatinine 1.39(H) 0.80 - 1.30 mg/dL [facility] Glucose 203(H) 70 - 199 mg/dL [facility] Comment: Interpretive Data Fasting glucose >/= 126 [...] 2022. Calcium 10.0 8.5 - 10.3 mg/dL [facility] Blood 11/09/2024 4:58 PM CDT 11/09/2024 5:50 PM CDT Kami Gleason MD LAB BLOOD ORDERABLES Final Res ult Performing Organization Address City/[facility]/ZIP Co de Phone Number [facility] [address] Department [place] [address] * POCT glucose (11/09/2024 10:08 AM CDT) [facility] Signature Glucose, POC 167 70 [...] City/[facility]/ZIP Co de Phone Number [facility] [address] Department [place] [address] * POCT glucose (11/09/2024 9:20 AM CDT) [...] DEVICE F inal Result Performing Organization Address [facility] Co de Phone Number [facility] [address] [place] [address] * [place] AN ELECTIVE ENDOTRACHEAL AIRWAY, [place] AN PROCEDURE PLACEHOLDER (11/09/2024 7:54 AM CDT) Narrative Jorge Sun CRNA - 11/09/2024 7:54 AM CDT Jorge Sun CRNA 11/09/2024 7:55 AM Airway Patient location: OR Urgency: elective Indications for airway management: anesthesia and airway protection Difficult airway: no Staff: Supervising provider: Lai Gregg DO Placed by: LIQUEFACTION AND REGASIFICATION HELPER: Jorge Sun CRNA Emergent airway documentation: Risks [...] POCT ORDERABLES - DEVICE F inal Result [facility] [address] [place] [address] * (ABNORMAL) Urinalysis reflex to microscopic and culture Urine, bladder (10/26/2024 1:43 PM SHEET PILE HAMMER OPERATOR) Color, ur Straw Yellow Clarity, ur Clear Clear [facility] Specific gravity, ur 1.010 1.003 - 1.030 [facility] pH, urine 6.5 [facility] Comment: Interpretive Data U rine pH is affected by diet, medications, systemic acid-base disturbances, and renal tubular function. pH may affect urinary stone formation. For example, urine pH below 6.0 may help reduce the tendency for calcium phosphate stones and pH greater than 6.0 may reduce the tendency for uric acid stone formation. Source: [facility] [employer] Current Interpretive Data was last revised on 2017 Protein, ur ql Trace Negative [facility] Glucose, ur ql Negative Negative [facility] Ketones, ur Negative Negative [facility] Bilirubin, ur Negative Negative [facility] Blood, ur 1+(A) Negative [facility] Urobilinogen, ur <2.0 <2.0 mg/dL [facility] Nitrite, ur Negative Negative [facility] Leukocyte esterase, ur Negative Negative [facility] UA reflex comment Reflex to microscopic UA will be performed. [facility] Urine, bladder 10/26/2024 1: 43 PM SHEET PILE HAMMER OPERATOR 10/26/2024 2:03 PM SHEET PILE HAMMER OPERATOR Kami Gleason MD LAB MICROBIOLOGY - GENERAL ORD ERABLES Final Result Performing Organization Address City/[facility]/ZIP Co de Phone Number [facility] [address] Department [place] [address] * Urinalysis, microscopic only (10/26/2024 1:43 PM SHEET PILE HAMMER OPERATOR) WBC, ur 0-5 0 - 5 /HPF RBC, ur 0-2 0 - 2 /HPF [facility] Culture Reflex Comment Reflex conditions for urine culture (WBC >10) not met. [facility] Urine, bladder 10/26/2024 1: 43 PM SHEET PILE HAMMER OPERATOR 10/26/2024 2:03 PM SHEET PILE HAMMER OPERATOR Kami Gleason MD LAB URINE ORDERABLES Final Res ult [facility] [address] [place] [address] * (ABNORMAL) Lipid panel (03/22/2024 10:23 AM [...] on 2018. Triglycerides 115 <=149 mg/dL [facility] Comment: Interpretive Data Ages < or [...] on 2018. HDL 37(L) >=40 mg/dL [facility] Comment: Interpretive Data Ages < or [...] 2018. LDL, calculated 67 <=129 mg/dL [facility] Comment: Interpretive Data Ages < or [...] on 2018. Non-HDL Cholesterol 90 mg/dL [facility] Comment: Interpretive Data Ages < or [...] revised on 2018. Chol/HDL ratio 3 [facility] Blood 03/22/2024 10:2 3 AM CDT 03/22/2024 10:52 AM CDT us Antonette Rater MOTION PICTURE NARRATOR LAB BLOOD ORDERABLES Final Resul t [facility] [place] [address] * CTA Abdominal Aorta And Bilateral Iliofemoral [...] * (ABNORMAL) Hemoglobin A1c (09/22/2023 12:19 PM SHEET PILE HAMMER OPERATOR) Hgb A1C 6.0(H) 4.0 - 5.6 % [facility] Estimated Average Glucose 126 mg/dL [facility] Comment: The ADA recommends reporting an estimated Average Glucose (eAG) with all Hemoglobin A1c results using the equation derived from a study of 507 normal and diabetic adults. Minority populations were underrepresented and children were not included. (Diabetes Care 2020; 43(S1): S66-S76). The eAG is not equivalent to a fasting glucose. 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 09/22/2023 12:45 PM SHEET PILE HAMMER OPERATOR Chicho Clayton MD LAB BLOOD ORDERABLES Final Resul t [facility] Department [place] [address] from Last 3 Months or Most Recently Relevant to Health Maintenance Insurance DR [address] [place] [id number] [facility] MEDICARE [facility] MEDICARE [facility] MEDICARE [facility] Advance Directives For more information, please contact: [phone] * Full Code (Latest Code Status on File) Date Activated Date Inactivated Comments 11/09/2024 2:36 PM 11/12/2024 6:36 PM * Full Code Date Activated Date Inactivated Comments 10/30/2022 5:29 PM 10/31/2022 7:15 PM * Full Code Date Activated Date Inactivated Comments 08/16/2019 9:46 AM 08/16/2019 5:30 PM Care Teams Shipping And Receiving Specialist Relationship Specialty Start Date End Date Fuentes Orellana MD PCP - General 11/28/16 Itz Iyer MD [address] [place] [address] Consulting Physician Urology 05/31/18 Shawnee Mckinney MD [address] [facility] [address] [place] [address] Referring Physician Urology 06/03/18 Chicho Clayton MD [address] [facility] [address] [place] [address] Medical Oncologist/Hematologis t Medical Oncology 06/07/18 Maria Guadalupe Palacios, RN Registered Nurse 06/10/18 Lupillo Davenport MD Referring Physician Radiation Oncology 06/16/18 Danis Meza NP [address] [facility] [address] [place] [address] Nurse Practitioner Urology 10/06/22 Antonette Owens NP [address] [facility] [address] [place] [address] Nurse Practitioner Cardiovascular Disease 10/06/22 Aniceto Foley MD [id number] [place] [address] Surgeon Vascular Surgery 10/31/22
--- OUTSIDE RECORDS SUMMARY | 2025-01-18 12:34 | XMS_ITS | Clinical Summary ---
Author Organization [facility] [place] [address] Address [address] [place] [address] Care Team Providers Care Structural Test Engineer Name Role Phone Fuentes Orellana MD Primary Care Provider [phone] Itz Iyer MD Unavailable [phone] Shawnee Mckinney MD Unavailable [phone] Chicho Clayton MD Unavailable Maria Guadalupe Palacios RN Unavailable Unava ilable Lupillo Davenport MD Unavailable [phone] Danis Meza LUGGER Unavailable Antonette Owens NP Unavailable Aniceto Foley [...] immediate release tabletIndicatio ns:Coronary artery disease involving [place] coronary artery of [place] heart without angina pectoris Take 1 tablet [...] (10/21/2022): Added automatically from request for surgery [id number] Assessment & Plan (10/30/2022 2:56 PM LADIES LOCKER ROOM ATTENDANT): - OR 3/2 for planned R CEA - OU status, Q2h NV/VS monitoring - Bedrest today, OOB/PT POD #1 - SBP goal 100-160, nicardipine for elevated BP - Continue aspirin and statin - Plan to stager home medications and resume overnight Atherosclerosis of [place] ar teries of extremities with intermittent claudication, bilateral legs 06/03/2022 Melanoma 01/10/2021 Anxiety 01/10/2021 DM (diabetes mellitus) 01/10/2021 Assessment & Plan (10/30/2022 9:59 AM LADIES LOCKER ROOM ATTENDANT): - A1c 7.6% 10/2022 - SSI while inpatient - CC diet when eating Elevated left ventricular end-diastolic pressure (LVEDP) 11/15/2019 Encounter for surgical after care following surgery of circulatory system 05/20/2019 Prostate cancer 09/10/2018 Assessment & Plan (10/27/2018 9:53 AM LADIES LOCKER ROOM ATTENDANT): Follows with urology, has his PSA monitored it is increasing, but still WNL 1.4 Assessment & Plan (09/22/2018 11:35 AM LADIES LOCKER ROOM ATTENDANT): Has close follow up with his oncologist. His PSA was slightly elevated on last check. Hyperlipidemia 09/21/2017 Assessment & Plan (06/30/2018 9:38 AM CDT): His last lipid panel was within acceptable range; he will continue on a high intensity statin. Assessment & Plan (09/21/2017 11:34 AM LADIES LOCKER ROOM ATTENDANT): Continue Lipitor 40 mg daily. Essential hypertension 07/20/2017 Assessment & Plan (10/30/2022 2:57 PM LADIES LOCKER ROOM ATTENDANT): - Tight BP goals post-procedure - Continue home medications as indicated by BP goals as above, staggering overnight for gentle BP control Assessment & Plan (10/27/2018 9:54 AM LADIES LOCKER ROOM ATTENDANT): Hypertension is unchanged. Dietary sodium restriction. Blood pressure will be reassessed in 4 weeks. Assessment & Plan (09/22/2018 11:38 AM LADIES LOCKER ROOM ATTENDANT): Hypertension remains elevated. He is increasing [...] today Assessment & Plan (09/21/2017 11:33 AM LADIES LOCKER ROOM ATTENDANT): Blood pressure is well controlled today. Last visit we added HCTZ 12.5 mg daily. Continue current medications Assessment & Plan (08/10/2017 11:26 AM LADIES LOCKER ROOM ATTENDANT): Blood pressure is not controlled. Add hydrochlorothiazide 12.5 mg p.o. daily. He is compliant with medications but always add salt to food which I advised him not to do that. Assessment & Plan (07/20/2017 9:19 AM LADIES LOCKER ROOM ATTENDANT): Blood pressure remains uncontrolled. We will order renal Doppler ultrasound to rule out renal artery stenosis given the fact that he has peripheral vascular disease and coronary artery disease. I will increase amlodipine from 5-10 mg p.o. daily. If that does not control the blood pressure we will add hydrochlorothiazide 12.5 mg p.o. Daily. Coronary artery disease invo lving [place] coronary artery of [place] heart without angina pectoris 07/20/2017 Assessment & Plan (10/30/2022 9:58 AM LADIES LOCKER ROOM ATTENDANT): - Continue home medications as able - Maintained on Brilinta as an outpatient; held 1 week prior to OR - Will discuss with surgery team when to safely resume post-procedure Assessment & Plan (10/27/2018 9:59 AM LADIES LOCKER ROOM ATTENDANT): Coronary artery disease is improving with lifestyle modifications. Continue current treatment regimen. Cardiac status will be reassessed in 3 months. No chest pain. Minimal SOB. Continue asa, statin, brilinta Assessment & Plan (09/22/2018 11:36 AM LADIES LOCKER ROOM ATTENDANT): Coronary artery disease is unchanged. Regular [...] BB. Assessment & Plan (09/21/2017 11:33 AM LADIES LOCKER ROOM ATTENDANT): Continue aspirin, Brilinta, Toprol XL and atorvastatin. Assessment & Plan (08/10/2017 11:27 AM LADIES LOCKER ROOM ATTENDANT): Continue Brilinta and aspirin. Asymptomatic. Assessment & Plan (07/20/2017 9:19 AM LADIES LOCKER ROOM ATTENDANT): Continue aspirin, Brilinta, Lipitor , metoprolol PVD (peripheral vascular disease) 07/20/2017 Assessment & Plan (10/27/2018 9:21 AM LADIES LOCKER ROOM ATTENDANT): S/P bilateral ALVA angioplasty; right EIA angioplasty/stent 11/21/14. S/P aortoiliac angioplasty/stent 05/28/09. Continues on asa, statin and brilinta Assessment & Plan (09/21/2017 11:34 AM LADIES LOCKER ROOM ATTENDANT): He follows up with vascular surgery at [facility] Assessment & Plan (08/10/2017 11:27 AM LADIES LOCKER ROOM ATTENDANT): Renal ultrasound suggest more than 60% stenosis in the right renal artery and infrarenal stenosis 50-70%. He follows up with Dr. Foley from vascular surgery at [facility] Assessment & Plan (07/20/2017 9:20 AM LADIES LOCKER ROOM ATTENDANT): Patient will follow up with Dr. Foley from vascular surgery. He does have some claudication when he walks. 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 Has stopped caffeine intake. [...] implant or graft 6 02/09/2019 Atherosclerosis of [place] artery of extremity 04/15/20 16 02/09/2019 Assessment & Plan (09/22/2018 11:26 AM LADIES LOCKER ROOM ATTENDANT): 80% circumflex s/p RICHARD. 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 {plan; hypertension for POC:[id number]} Blood pressure will be reassessed {plan; follow-up 2 weeks/4weeks/3months:[id number]}. Increase amolodipine to 10 mg Continue all [...] 12/09/2024 1:00 PM CDT Office Visit [facility] [address] [place] [phone] Kay Ward NP Coronary artery disease of [place] artery of [place] heart with stable angina pectoris (Primary Dx); Orthostatic hypotension; LVH (left ventricular hypertrophy); PVD (peripheral vascular disease); Preoperative cardiovascular examination 11/10/[address] [facility] [address] [place] [address] Cheryl Bundy 11/09/2024 7:30 AM CDT - 11/09/2024 10:[address] [facility] Operating Room [address] [place] [phone] Kami Meneses MD Cystoscopy 11/09/2024 7:30 AM CDT Anesthesia Event [facility] Operating Room [address] [place] [phone] Lai Gregg DO [place], Justin Kyle, CRNA 11/09/2024 5:14 AM CDT - 11/12/2024 2:30 PM CDT Hospital Encounter [address] [phone] Kami Meneses MD Intrinsic urethral sphincter deficiency (Primary Dx) Discharge Disposition: Discharge to home, home health skilled care 10/26/2024 12:45 PM LADIES LOCKER ROOM ATTENDANT Pre-Admission Testing 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 Right MELANOMA RESECTION 12/17/2014 [...] posterior neck s/p excision 11/2014 Hypertension Dxd 1990s Hyperlipidemia Coronary artery disease s/p sten t 2017 DVT (deep venous thrombosis) (HCC) 2009 h/o [...] drink = 0.6 oz pu re alcohol) [facility] Acheive CCAities Answer Date Recorded In the past 12 months has [employer], gas, oil, or water [employer] threatened to shut off services in your [...] any clubs o r organizations such as mu-ism groups, unions, fraternal or athletic groups, or [...] in the past 12 m [facility], were you homeless or living in a intermediate (including now)? No 11/11/2024 Personal Safety Answer Date Recorded Have you ever been in or are you currently in a harmful physical or emotional relationship or is someone making you feel afraid or unsafe? Denies 11/09/2024 Sex and Gender Information Value Date Recorded Sex Assigned at Not on file Legal Sex Male 12:32 AM LADIES LOCKER ROOM ATTENDANT Gender Identity Not on file Sexual [...] history exists Medical Devices Implanted Type Area Health Care Legal Assistant Device Identifier Shelf Expiration Date Model / [...] and 61 to 70 cm pressure-regulating balloon. [employer] Vascu-Guard 8x.8cm Peripheral Patch Vascular Bovine Pericardium Vg-[id number] - [id number] Implanted:Qty: 1 on 10/30/2022 by Aniceto Foley MD at [facility] Right: Carotid [facility] [employer]atings [id number] 07/09/2023 [id number]-[id number] / / [id number] [employer] Sandra Ams 800 Kit Accessory Sterile Disposable Latex Free Urinary [id number] - [id number] Implanted:Qty: 1 on 11/09/2024 by Kami Meneses MD at [facility] N/A: Urethra [employer] Sandra [id number] 03/09/2029 [id number] / / [id number] [employer] Sandra Cuff Urethral Ams 800 Inhibizone 3.5cm [id number] - [id number] Implanted:Qty: 1 on 11/09/2024 by Kami Meneses MD at [facility] N/A: Urethra [employer] Sandra [id number] 02/22/2026 [id number] / / [id number] [employer] Sandra Ams 800 Pressure Balloon Sphincter 61-70cu Cm Implant Urological [id number] - [id number] Implanted:Qty: 1 on 11/09/2024 by Kami Meneses MD at [facility] N/A: Abdomen [employer] Sandra [id number] 03/20/2029 [id number] / / [id number] [employer] Sandra Ams 800 Control Pump Sphincter Implant Urological Inhibizone [id number] - [id number] Implanted:Qty: 1 on 11/09/2024 by Kami Meneses MD at [facility] N/A: Scrotum [employer] Sandra [id number] 02/15/2026 [id number] / / [id number] Procedures Procedure Name Priority Date/Time Associated Diagnosis [...] DEVICE Routine 11/09/2024 9 :20 AM CDT MD AN PROCEDURE PLACEHOLDER Routine 11/09/2024 7:54 AM CDT MD AN ELECTIVE ENDOTRACHEAL AIRWAY Routine 11/09/2024 7:54 AM CDT ARTIFICIAL URINARY SPHINCTER 11/09/2024 7:32 AM CDT Stress incontinence CYSTOSCOPY 11/09/2024 7:32 AM CDT Stress incontinence POCT GLUCOSE DEVICE Routine 11/09/2024 6 :43 AM CDT URINALYSIS, MICROSCOPIC ONLY Routine 10/26/2024 1:43 PM LADIES LOCKER ROOM ATTENDANT Stress incontinence URINALYSIS AND REFLEX TO MICROSCOPIC AND CULTURE Routine 10/26/2024 1:43 PM LADIES LOCKER ROOM ATTENDANT Stress incontinence LIPID PANEL Routine 03/22/2024 10:23 AM CDT Coronary artery disease involving [place] coronary artery of [place] heart without angina pectoris CTA ABDOMINAL AORTA AND BILATERAL ILIOFEMORAL RUNOFF Schedule Routine, Read Routine (OP Routine) 12/15/2023 1:56 PM CDT PVD (peripheral vascular disease) HEMOGLOBIN A1C Routine 09/22/2023 12:19 PM LADIES LOCKER ROOM ATTENDANT Prostate cancer (HCC) from Last 3 [...] ORDERABLES - DEVICE F inal Result [facility] [address] [place] [address] * (ABNORMAL) eGFR (11/12/2024 8:15 AM CDT) [...] CDT 11/12/2024 9:17 AM CDT Kalina Coronado LUGGER LAB BLOOD ORDERABLES Fi nal Result Performing Organization Address City/[facility]/ZIP Co de Phone Number [facility] [address] [place] [address] * (ABNORMAL) Basic metabolic panel (11/12/2024 8:15 AM CDT) [facility] Sodium 138 135 - 145 mmol/L Potassium, pl 4.2 3.3 - 4.9 mmol/L [facility] Chloride 106 97 - 110 mmol/L [facility] CO2 21(L) 22 - 32 mmol/L [facility] Anion gap 11 2 - 15 mmol/L [facility] BUN 28(H) 6 - 25 mg/dL [facility] Creatinine 1.26 0.80 - 1.30 mg/dL [facility] Glucose 136 70 - 199 mg/dL [facility] Comment: Interpretive Data Fasting glucose >/= [...] 2022. Calcium 9.2 8.5 - 10.3 mg/dL [facility] Blood 11/12/2024 8:15 AM CDT 11/12/2024 9:17 AM CDT Kalinacedric Coronado LUGGER LAB BLOOD ORDERABLES Fi nal Result Performing Organization Address [facility]/ZIP Co de Phone Number [facility] [address] [place] [address] * POCT glucose (11/12/2024 5:49 AM CDT) Glucose, POC 125 70 - 199 mg/dL Comment: For Glucose values <35 mg/dl when Hematocrit is >60 mg/dl,the test may not accurately detect significant hypoglycemia,and testing in the Laboratory should be considered if clinically indicated. Blood 11/12/2024 5:49 AM CDT 11/12/2024 5:49 AM CDT [facility] LAB POCT ORDERABLES - DEVICE F inal Result Performing Organization Address [facility] Co de Phone Number [facility] [address] [facility] [place] [address] * (ABNORMAL) POCT glucose (11/11/2024 8:22 PM CDT) Glucose, POC 214(H) 70 - 199 mg/dL Comment: For Glucose values <35 mg/dl when Hematocrit is >60 mg/dl,the test may not accurately detect significant hypoglycemia,and testing in the Laboratory should be considered if clinically indicated. Blood 11/11/2024 8:22 PM CDT 11/11/2024 8:22 PM CDT [facility] LAB POCT ORDERABLES - DEVICE F inal Result Performing Organization Address [facility] Co de Phone Number [facility] [address] [facility] [place] [address] * POCT glucose (11/11/2024 5:14 PM CDT) Glucose, POC 127 70 - 199 mg/dL Comment: For Glucose values <35 mg/dl when Hematocrit is >60 mg/dl,the test may not accurately detect significant hypoglycemia,and testing in the Laboratory should be considered if clinically indicated. Blood 11/11/2024 5:14 PM CDT 11/11/2024 5:14 PM CDT [facility] LAB POCT ORDERABLES - DEVICE F inal Result Performing Organization Address [facility] Co de Phone Number [facility] [address] [facility] [place], [place] [id number] * POCT glucose (11/11/2024 11:29 AM CDT) [...] DEVICE F inal Result Performing Organization Address [facility] Co de Phone Number [facility] [address] [place] [address] * (ABNORMAL) eGFR (11/11/2024 7:48 AM CDT) Pathologist [facility] eGFR 48(L) >=60 mL/min/1. 73 m2 Comment: [...] MD LAB BLOOD ORDERABLES Final Res ult [facility] [address] [place] [address] * Differential, auto (11/11/2024 7:48 AM CDT) Neutrophil abs 5.4 1.5 - 6.5 K/cumm Imm gran abs 0.0 0.0 - 0.1 K/cumm [facility] Lymphocyte abs 1.8 0.8 - 3.3 K/cumm [facility] Monocyte abs 0.8 0.2 - 0.8 K/cumm [facility] Eosinophil abs 0.2 0.0 - 0.5 K/cumm [facility] Basophil abs 0.0 0.0 - 0.1 K/cumm [facility] Neutrophil pct 65.8 % [facility] Comment: Interpretive Data Percent cell count reference ranges are not reported, since discordance with absolute values may lead to misinterpretation of CBC data. Current Interpretive Data was last revised on 2017. Imm gran pct 0.5 % [facility] Comment: Interpretive Data Percent cell count reference ranges are not reported, since discordance with absolute values may lead to misinterpretation of CBC data. Current Interpretive Data was last revised on 2017. Lymphocyte pct 21.7 % [facility] Comment: Interpretive Data Percent cell count reference ranges are not reported, since discordance with absolute values may lead to misinterpretation of CBC data. Current Interpretive Data was last revised on 2017. Monocyte pct 10.0 % [facility] Comment: Interpretive Data Percent cell count reference ranges are not reported, since discordance with absolute values may lead to misinterpretation of CBC data. Current Interpretive Data was last revised on 2017. Eosinophil pct 1.8 % [facility] Comment: Interpretive Data Percent cell count reference ranges are not reported, since discordance with absolute values may lead to misinterpretation of CBC data. Current Interpretive Data was last revised on 2017. Basophil pct 0.2 % [facility] Comment: Interpretive Data Percent cell count reference ranges are not reported, since discordance with absolute values may lead to misinterpretation of CBC data. Current Interpretive Data was last revised on 2017. Blood 11/11/2024 7:48 AM CDT 11/11/2024 8:16 AM CDT Kalina Ashley Coronado LUGGER LAB BLOOD ORDERABLES Fi nal Result Performing Organization Address [facility] Co de Phone Number [facility] [address] Department [place] [address] * (ABNORMAL) CBC with auto differential (11/11/2024 7:48 AM CDT) WBC 8.2 3.8 - 9.9 K/cumm Hgb 11.1(L) 13.0 - 17.5 g/dL [facility] Hct 34.8(L) 38.9 - 50.3 % [facility] Plt 175 150 - 400 K/cumm [facility] MPV 11.0 9.1 - 12.3 fL [facility] RBC 3.63(L) 4.30 - 5.80 M/cumm [facility] MCV 95.9 81.3 - 96.4 fL [facility] MCH 30.6 27.1 - 33.3 pg [facility] MCHC 31.9(L) 32.3 - 35.7 g/dL [facility] RDW CV 14.2 11.1 - 14.9 % [facility] RDW SD 50.2(H) 35.7 - 48.1 fL [facility] NRBC abs 0.00 0.00 - 0.01 K/cumm [facility] Blood 11/11/2024 7:48 AM CDT 11/11/2024 8:16 AM CDT us Kalina Ashley Coronado LUGGER LAB BLOOD ORDERABLES Fi nal Result Performing Organization Address [facility]/ZIP Co de Phone Number [facility] [address] [place] [address] * Gentamicin level random (11/11/2024 7:48 AM CDT) Pathologist [facility] Gentamicin random 9.8 mcg/mL Comment: Interpretive Data No reference ranges have been established for random drug levels. Current Interpretive Data was last revised on 2020. Blood 11/11/2024 7:48 AM CDT 11/11/2024 8:16 AM CDT Kami Gleason MD LAB BLOOD ORDERABLES Final Res ult Performing Organization Address [facility] Co de Phone Number [facility] [address] [place] [address] * (ABNORMAL) Basic metabolic panel (11/11/2024 7:48 AM CDT) [facility] Sodium 134(L) 135 - 145 mmol/L Potassium, pl 4.0 3.3 - 4.9 mmol/L [facility] Chloride 101 97 - 110 mmol/L [facility] CO2 24 22 - 32 mmol/L [facility] Anion gap 9 2 - 15 mmol/L [facility] BUN 35(H) 6 - 25 mg/dL [facility] Creatinine 1.50(H) 0.80 - 1.30 mg/dL [facility] Glucose 136 70 - 199 mg/dL [facility] Comment: Interpretive Data Fasting glucose >/= [...] 2022. Calcium 9.4 8.5 - 10.3 mg/dL [facility] Blood 11/11/2024 7:48 AM CDT 11/11/2024 8:16 AM CDT [facility] LAB BLOOD ORDERABLES Final Res ult Performing Organization Address [facility] Co de Phone Number [facility] [address] [place] [address] * POCT glucose (11/11/2024 6:41 AM CDT) Glucose, POC 155 70 - 199 mg/dL Comment: For Glucose values <35 mg/dl when Hematocrit is >60 mg/dl,the test may not accurately detect significant hypoglycemia,and testing in the Laboratory should be considered if clinically indicated. Blood 11/11/2024 6:41 AM CDT 11/11/2024 6:41 AM CDT [facility] LAB POCT ORDERABLES - DEVICE F inal Result Performing Organization Address [facility] Co de Phone Number [facility] [address] [place] [address] * POCT glucose (11/10/2024 8:11 PM CDT) [...] DEVICE F inal Result Performing Organization Address City/[facility]/ZIP Co de Phone Number [facility] [address] [place] [address] * POCT glucose (11/10/2024 4:46 PM CDT) Glucose, POC 134 70 - 199 mg/dL Comment: For Glucose values <35 mg/dl when Hematocrit is >60 mg/dl,the test may not accurately detect significant hypoglycemia,and testing in the Laboratory should be considered if clinically indicated. Blood 11/10/2024 4:46 PM CDT 11/10/2024 4:46 PM CDT [facility] LAB POCT ORDERABLES - DEVICE F inal Result Performing Organization Address [facility] de Phone Number [facility] [address] [facility] [place] [address] * POCT glucose (11/10/2024 12:00 PM CDT) Glucose, POC 98 70 - 199 mg/dL Comment: For Glucose values <35 mg/dl when Hematocrit is >60 mg/dl,the test may not accurately detect significant hypoglycemia,and testing in the Laboratory should be considered if clinically indicated. Blood 11/10/2024 12:0 0 PM CDT 11/10/2024 12:00 PM CDT Result [facility] LAB POCT ORDERABLES - DEVICE F inal Result Performing Organization Address [facility] de Phone Number [facility] [address] [facility] [place] [address] * POCT glucose (11/10/2024 7:38 AM CDT) Glucose, POC 112 70 - 199 mg/dL Comment: For Glucose values <35 mg/dl when Hematocrit is >60 mg/dl,the test may not accurately detect significant hypoglycemia,and testing in the Laboratory should be considered if clinically indicated. Blood 11/10/2024 7:38 AM CDT 11/10/2024 7:38 AM CDT Result [facility] LAB POCT ORDERABLES - DEVICE F inal Result Performing Organization Address [facility] Co de Phone Number [facility] [address] [facility] [place], [place] [id number] * (ABNORMAL) POCT glucose (11/09/2024 8:32 PM CDT) Glucose, POC 222(H) 70 - 199 mg/dL Comment: For Glucose values <35 mg/dl when Hematocrit is >60 mg/dl,the test may not accurately detect significant hypoglycemia,and testing in the Laboratory should be considered if clinically indicated. Blood 11/09/2024 8:32 PM CDT 11/09/2024 8:32 PM CDT Kami Gleason MD LAB POCT ORDERABLES - DEVICE F inal Result Performing Organization Address [facility] de Phone Number [facility] [address] [facility] [place] [address] * POCT glucose (11/09/2024 5:35 PM CDT) Glucose, POC 171 70 - 199 mg/dL Comment: For Glucose values <35 mg/dl when Hematocrit is >60 mg/dl,the test may not accurately detect significant hypoglycemia,and testing in the Laboratory should be considered if clinically indicated. Blood 11/09/2024 5:35 PM CDT 11/09/2024 5:35 PM CDT [facility] LAB POCT ORDERABLES - DEVICE F inal Result Performing Organization Address [facility] Co de Phone Number [facility] [address] [facility] [place], [place] [id number] * (ABNORMAL) eGFR (11/09/2024 4:58 PM CDT) [...] MD LAB BLOOD ORDERABLES Final Res ult [facility] [address] Department [place] [address] * (ABNORMAL) Basic metabolic panel (11/09/2024 4:58 PM CDT) Sodium 134(L) 135 - 145 mmol/L Potassium, pl 4.6 3.3 - 4.9 mmol/L [facility] Chloride 101 97 - 110 mmol/L [facility] CO2 21(L) 22 - 32 mmol/L [facility] Anion gap 12 2 - 15 mmol/L [facility] BUN 29(H) 6 - 25 mg/dL [facility] Creatinine 1.39(H) 0.80 - 1.30 mg/dL [facility] Glucose 203(H) 70 - 199 mg/dL [facility] Comment: Interpretive Data Fasting glucose >/= [...] 2022. Calcium 10.0 8.5 - 10.3 mg/dL [facility] Blood 11/09/2024 4:58 PM CDT 11/09/2024 5:50 PM CDT Kami Gleason MD LAB BLOOD ORDERABLES Final Res ult Performing Organization Address [facility]/ZIP Co de Phone Number [facility] [address] [place] [address] * POCT glucose (11/09/2024 10:08 AM CDT) Glucose, POC 167 70 - 199 mg/dL Comment: For Glucose values <35 mg/dl when Hematocrit is >60 mg/dl,the test may not accurately detect significant hypoglycemia,and testing in the Laboratory should be considered if clinically indicated. Blood 11/09/2024 10:0 8 AM CDT 11/09/2024 10:08 AM CDT Result [facility] Kami Gleason MD LAB POCT ORDERABLES - DEVICE F inal Result Performing Organization Address [facility] Co de Phone Number [facility] [address] [place] [address] * POCT glucose (11/09/2024 9:20 AM CDT) Glucose, POC 163 70 - 199 mg/dL Comment: For Glucose values <35 mg/dl when Hematocrit is >60 mg/dl,the test may not accurately detect significant hypoglycemia,and testing in the Laboratory should be considered if clinically indicated. Blood 11/09/2024 9:20 AM CDT 11/09/2024 9:20 AM CDT Kami Gleason MD LAB POCT ORDERABLES - DEVICE F inal Result [facility] [address] Department [place] [address] * MD AN ELECTIVE ENDOTRACHEAL AIRWAY, MD AN PROCEDURE PLACEHOLDER (11/09/2024 7:54 AM CDT) Narrative Jorge Sun CRNA - 11/09/2024 7:54 AM CDT Jorge Sun CRNA 11/09/2024 7:55 AM Airway Patient location: OR Urgency: elective Indications for airway management: anesthesia and airway protection Difficult airway: no Staff: Supervising provider: Lai Gregg DO Placed by: BRAND MARKETING COORDINATOR: Jorge Sun CRNA Emergent airway documentation: Risks [...] ORDERABLES - DEVICE F inal Result [facility] [address] Department [place] [address] * (ABNORMAL) Urinalysis reflex to microscopic and culture Urine, bladder (10/26/2024 1:43 PM LADIES LOCKER ROOM ATTENDANT) Color, ur Straw Yellow Clarity, ur Clear Clear [facility] Specific gravity, ur 1.010 1.003 - 1.030 [facility] pH, urine 6.5 [facility] Comment: Interpretive Data U rine pH is affected by diet, medications, systemic acid-base disturbances, and renal tubular function. pH may affect urinary stone formation. For example, urine pH below 6.0 may help reduce the tendency for calcium phosphate stones and pH greater than 6.0 may reduce the tendency for uric acid stone formation. Source: [facility] Current Interpretive Data was last revised on 2017 Protein, ur ql Trace Negative [facility] Glucose, ur ql Negative Negative [facility] Ketones, ur Negative Negative [facility] Bilirubin, ur Negative Negative [facility] Blood, ur 1+(A) Negative [facility] Urobilinogen, ur <2.0 <2.0 mg/dL [facility] Nitrite, ur Negative Negative [facility] Leukocyte esterase, ur Negative Negative [facility] UA reflex comment Reflex to microscopic UA will be performed. [facility] Urine, bladder 10/26/2024 1: 43 PM LADIES LOCKER ROOM ATTENDANT 10/26/2024 2:03 PM LADIES LOCKER ROOM ATTENDANT Kami Gleason MD LAB MICROBIOLOGY - GENERAL ORD ERABLES Final Result [facility] [address] [place] [address] * Urinalysis, microscopic only (10/26/2024 1:43 PM LADIES LOCKER ROOM ATTENDANT) WBC, ur 0-5 0 - 5 /HPF RBC, ur 0-2 0 - 2 /HPF [facility] Culture Reflex Comment Reflex conditions for urine culture (WBC >10) not met. [facility] Urine, bladder 10/26/2024 1: 43 PM LADIES LOCKER ROOM ATTENDANT 10/26/2024 2:03 PM LADIES LOCKER ROOM ATTENDANT us Kami Gleason MD LAB URINE ORDERABLES Final Res ult [facility] [address] [place] [address] * (ABNORMAL) Lipid panel (03/22/2024 10:23 AM [...] revised on 2018. Triglycerides 115 <=149 mg/dL [facility] Comment: Interpretive Data Ages < or [...] revised on 2018. HDL 37(L) >=40 mg/dL [facility] Comment: Interpretive Data Ages < or [...] on 2018. LDL, calculated 67 <=129 mg/dL [facility] Comment: Interpretive Data Ages < or [...] revised on 2018. Non-HDL Cholesterol 90 mg/dL [facility] Comment: Interpretive Data Ages < or [...] last revised on 2018. Chol/HDL ratio 3 [facility] Blood 03/22/2024 10:2 3 AM CDT 03/22/2024 10:52 AM CDT us Antonette Owens LUGGER LAB BLOOD ORDERABLES Final Resul t [facility] [address] [facility] [place] [address] * CTA Abdominal Aorta And Bilateral Iliofemoral [...] * (ABNORMAL) Hemoglobin A1c (09/22/2023 12:19 PM LADIES LOCKER ROOM ATTENDANT) Hgb A1C 6.0(H) 4.0 - 5.6 % [facility] Estimated Average Glucose 126 mg/dL [facility] Comment: The ADA recommends reporting an estimated Average Glucose (eAG) with all Hemoglobin A1c results using the equation derived from a study of 507 normal and diabetic adults. Minority populations were underrepresented and children were not included. (Diabetes Care 2020; 43(S1): S66-S76). The eAG is not equivalent to a fasting glucose. Blood 09/22/2023 12:1 9 PM LADIES LOCKER ROOM ATTENDANT 09/22/2023 12:45 PM LADIES LOCKER ROOM ATTENDANT us Chicho Clayton MD LAB BLOOD ORDERABLES Final Resul t [facility] One [facility] Department [place] [address] from Last 3 Months or Most Recently Relevant to Health Maintenance Insurance [facility] MEDICARE MEDICARE [facility] Member Subscriber Plan / Payer (Ef fective 2017-Present) Name:RIVERA FREEMAN Relation to Subscriber:Self Name:Rivera Freeman Payer ID:[id number] Group ID:[id number] Type:COMMERCIAL Address: [place] [id number] MEDICARE [facility] MEDICARE [facility] Member Subscriber Plan / Payer (Ef fective 2014-Present) Name:Rivera Freeman Relation to Subscriber:Self Name:Rivera Freeman Payer ID:[id number] Group ID:[id number] Type:COMMERCIAL Address: [facility] [address] [place] [id number] Advance Directives For more information, please contact: [phone] * Full Code (Latest Code Status on File) Date Activated Date Inactivated Comments 11/09/2024 2:36 PM 11/12/2024 6:36 PM * Full Code Date Activated Date Inactivated Comments 10/30/2022 5:29 PM 10/31/2022 7:15 PM * Full Code Date Activated Date Inactivated Comments 08/16/2019 9:46 AM 08/16/2019 5:30 PM Care Teams Structural Test Engineer Relationship Specialty Start Date End Date Fuentes Orellana MD PCP - General 11/28/16 Itz Iyer MD [address] [address] Consulting Physician Urology 05/31/18 Shawnee Mckinney MD [address] [place] [address] Referring Physician Urology 06/03/18 Chicho Clayton MD [address] [facility] [address] [place] [address] Medical Oncologist/Hematologis t Medical Oncology 06/07/18 Maria Guadalupe Palacios, RN Registered Nurse 06/10/18 Lupillo Davenport MD Referring Physician Radiation Oncology 06/16/18 Danis Meza NP [address] [facility] [address] [place] [address] Nurse Practitioner Urology 10/06/22 Antonette Owens NP [address] [facility] [address] [place] [address] Nurse Practitioner Cardiovascular Disease 10/06/22 Aniceto Foley MD [id number] [place] [address] Surgeon Vascular Surgery 10/31/22
--- OUTSIDE RECORDS SUMMARY | 2025-01-18 12:34 | XMS_ITS | Clinical Summary ---
Author Organization [facility] Address [address], [facility] [address] [place] [address] Phone Care Team Providers Care Workers Compensation Claims Examiner Name Role Phone Fuentes Orellana MD Primary Care Provider [phone] Brent Dickinson DO Unavailable [phone] Faviola Jiménez SALES DIRECTOR, POSTING SPECIALIST Unavailable Shawnee Mckinney MD Unavailable Chicho Clayton MD Unavailable Lai Lambert SALES DIRECTOR, POSTING SPECIALIST Unavailable [phone] Kami Meneses MD Unavailable [phone] Anette Bond MD Unavailable [phone] Kay Gordon SALES DIRECTOR, POSTING SPECIALIST Unavailable Kami Meneses MD Unavailable [phone] Kami Meneses MD Unavailable [phone] Allergies No known active allergies Medications [...] Telephone [facility] [address] [place] [address] Kami Meneses MD 01/10/2025 1:30 PM CDT Office Visit [facility] [address] [place] [address] Kami Meneses MD UTI symptoms (Primary Dx) Discharge Disposition: Discharged to home or Selfcare 01/10/2025 Travel 12/23/2024 9:00 AM CDT Office Visit [facility] [address] [place] [address] Kami Meneses MD UTI symptoms (Primary Dx) Discharge Disposition: Discharged to home or Selfcare 12/23/2024 Travel 12/21/2024 Telephone [facility] [address] [place] [address] Kami Meneses MD Testicle Pain 12/16/2024 10:45 AM CDT Office Visit [facility] [address] [place] [address] Kami Meneses MD Stress incontinence (female) (male) (Primary Dx) Discharge Disposition: Discharged to home or Selfcare 12/16/2024 Telephone [facility] [address] [place] [address] Kami Meneses MD 12/16/2024 Travel 10/26/2024 Telephone [facility] [address] [place] [address] Kami Meneses MD Pre-surgical question from Last [...] Job 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 on file Not on file Not on cory e Last Filed Vital Signs Vital Sign Reading Time Taken Comments Blood Pressure 154/64 12/23/2024 9:15 AM CDT Pulse 69 12/23/2024 9:15 AM CDT Temperature 36.4 C (97.6 F) 08/10/2024 9:53 AM APARTMENT MAINTENANCE Respiratory Rate 16 01/10/2025 1:15 PM CDT [...] Description 01/27/2025 2:15 PM CDT Office Visit [facility] [address] [place] [address] Kami Meneses MD #[address] [address] Health Maintenance Due Date Last Done Comments [...] No growth final 01/11/2025 5:23 PM CDT [facility] Culture URINE SPECIMEN OBTAINED BY CLEAN CATCH PROCEDURE / Unknown Non-Phlebotomy Collection / Unknown 01/10/2025 1:45 PM CDT 01/10/2025 1:45 PM CDT us Deanneaishahrzad Gleason MD MICROBIOLOGY - GENERAL ORDERAB LES Final Result [facility] [address] [place] [address], [place] * COLONOSCOPY (05/24/2020) Brent Dickinson DO PROCEDURE/MINOR SURGICAL ORDERA BLES Final Result from Last 3 Months or Most Recently Relevant to Health Maintenance Insurance MEDICARE [facility] Care Teams Workers Compensation Claims Examiner Relationship Specialty Start Date End Date Fuentes Orellana MD [address] [address] PCP - General Family Medicine 07/06/15 Brent Dickinson DO [address] [address] Gastroenterology 06/27/16 Faviola Jiménez, SALES DIRECTOR, POSTING SPECIALIST [address] [address] Nurse Practitioner Advanced Practice Nurse 07/22/16 Shawnee Mckinney MD [address] [facility] [address] [place] [address] Urologist Urology 06/07/19 Chicho Clayton MD [address] [facility] [address] [place] [address] Oncology 06/13/19 Lai Lambert APRN, POSTING SPECIALIST [address] [place] [address] Nurse Practitioner Advanced Practice Nurse 02/10/23 Kami Meneses MD #[address] [address] Consulting Physician Urology 06/16/23 Anette Bond MD [address] [place] [address] Consulting Physician Gastroenterology 12/25/22 Kay Gordon APRN, POSTING SPECIALIST [address] [place] [address] Nurse Practitioner Advanced Practice Nurse 06/16/24 Kami Meneses MD [address] [facility] [address] [address] Consulting Physician Urology 08/19/24 Kami Meneses MD [address] [address] Consulting Physician Urology 01/06/25
--- OUTSIDE RECORDS SUMMARY | 2025-01-18 12:34 | XMS_ITS | CONTINUITY OF CARE DOCUMENT ---
Author Name malik gan Address Unknown Organization [facility] Address [address] [place] [address] [address] [place] [address] Phone [phone] Care Team Providers Care Behavioral Interventionist Name Role Phone Dinh BARRERA, [facility] Unavailable [phone]
== END 2025-01-18 12:29 | disposition home or self-care (01) ==
PROVIDERS: PCP Family Medicine; Visit Provider Internal Medicine
DX: E04.1 Nontoxic single thyroid nodule (principal); E11.42 Type 2 diabetes mellitus with diabetic polyneuropathy
CPT/HCPCS: 10005; 10006; 88172; 88173; 88305

== ENCOUNTER 2025-02-04 11:41 | Emergency (ER) | payer MEDICARE, SELFPAY ==
--- OUTSIDE RECORDS SUMMARY | 2025-02-04 11:43 | XMS_ITS | Encounter Summary ---
Author Organization [facility] Address [address] [place] [address] Phone Care Team Providers Care Laundry Operator Finishing Name Role Phone Fuentes Orellana MD Primary Care Provider Brent Dickinson DO Unavailable [phone] Faviola Jiménez DATER ASSEMBLER, NUTRITION CLUB AMBASSADOR Unavailable Shawnee Mckinney MD Unavailable Chicho Clayton MD Unavailable Lai Lambert DATER ASSEMBLER, NUTRITION CLUB AMBASSADOR Unavailable Kami Meneses MD Unavailable [phone] Anette Bond MD Unavailable [phone] Kay Gordon DATER ASSEMBLER, NUTRITION CLUB AMBASSADOR Unavailable Kami Meneses MD Unavailable [phone] Kami Meneses MD Unavailable [phone] Reason for Visit * Reason Comments Medication Refill Encounter Details Date Type Department Care Team (Late st Contact Info) Description 10/15/2021 Refill [facility] - [place] [address] [place] [address] Ingrid Mccloud Ashley, PAC [address] [place] [address] Medication Refill Social History Tobacco Use Types [...] 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 OSSE PLAYER documented in this encounter Plan of Treatment Upcoming Encounters Date Type Department Care Team (Late st Contact Info) Description 03/10/2025 2:15 PM CDT Office Visit [facility] [address] [place] [address] Kami Meneses MD #[address] [address] documented as of this encounter Visit Diagnoses Not on filedocumented in this encounter Care Teams Laundry Operator Finishing Relationship Specialty Start Date End Date Fuentes Orellana MD [address] [place] [address] PCP - General Family Medicine 07/06/15 Brent Dickinson DO [address] [address] Gastroenterology 06/27/16 Faviola Jiménez APRN, NUTRITION CLUB AMBASSADOR [address] [facility] [place] [address] Nurse Practitioner Advanced Practice Nurse 07/22/16 Shawnee Mckinney MD [address] [facility] [address] [place] [address] Urologist Urology 06/07/19 Chicho Clayton MD [address] [facility] [address] [place] [address] Oncology 06/13/19 Lai Lambert APRN, NUTRITION CLUB AMBASSADOR [address] [place] [address] Nurse Practitioner Advanced Practice Nurse 02/10/23 Kami Meneses MD #[address] [address] Consulting Physician Urology 06/16/23 Anette Bond MD [address] [place] [address] Consulting Physician Gastroenterology 12/25/22 Kay Gordon APRN, NUTRITION CLUB AMBASSADOR [address] [place] [address] Nurse Practitioner Advanced Practice Nurse 06/16/24 Kami Meneses MD #[address] [place] [address] Consulting Physician Urology 08/19/24 Kami Meneses MD [address] [facility] [address] [place] [address] Consulting Physician Urology 01/06/25 documented as of this encounter
--- OUTSIDE RECORDS SUMMARY | 2025-02-04 11:43 | XMS_ITS | Encounter Summary ---
Author Organization [facility] Address [address] [place] [address] Phone Care Team Providers Care Welder Helper Name Role Phone Fuentes Orellana MD Primary Care Provider [phone] Brent Dickinson DO Unavailable [phone] Faviola Jiménez MARINE ELECTRICIAN, TIMBER MILL WORKER Unavailable Shawnee Mckinney MD Unavailable Chicho Clayton MD Unavailable Lai Lambert MARINE ELECTRICIAN, TIMBER MILL WORKER Unavailable [phone] Kami Meneses MD Unavailable [phone] Anette Bond MD Unavailable [phone] Kay Gordon MARINE ELECTRICIAN, TIMBER MILL WORKER Unavailable Kami Meneses MD Unavailable [phone] Kami Meneses MD Unavailable [phone] Encounter Details Date Type Department Care Team (Late st Contact Info) Description 08/22/2024 Telephone [facility] [address] [place] [address] Kami Meneses MD [address], [facility] [address] [place] [address] Social History Tobacco Use Types Packs/Day Years [...] 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 NCIAL SERVICES DIRECTOR * Telephone Encounter - Elidia Dill - 08/29/2024 8:20 AM CST Please see Dr. Otto message. NCIAL SERVICES DIRECTOR * Telephone Encounter - Kami Meneses MD [...] This needs to be done at [facility] by dc. He will need a urine culture 14 days prior to surgery. Hibiclens shower the night before morning of surgery, vancomycin and gentamicin for antibiotics NCIAL SERVICES DIRECTOR NCIAL SERVICES DIRECTOR documented in this encounter Plan of Treatment Upcoming Encounters Date Type Department Care Team (Late st Contact Info) Description 03/10/2025 2:15 PM CDT Office Visit [facility] [address] [place] [address] Kami eMneses MD #[address] [address] documented as of this encounter Visit Diagnoses Not on filedocumented in this encounter Care Teams Welder Helper Relationship Specialty Start Date End Date Fuentes Orellana MD [address] [address] PCP - General Family Medicine 07/06/15 Brent Dickinson DO [address] [address] Gastroenterology 06/27/16 Faviola Jiménez, MARINE ELECTRICIAN, TIMBER MILL WORKER [address] [place] [address] Nurse Practitioner Advanced Practice Nurse 07/22/16 Shawnee Mckinney MD [address] [facility] [address] [place] [address] Urologist Urology 06/07/19 Chicho Clayton MD [address] [facility] [address] [place] [address] Oncology 06/13/19 Lai Lambert APRN, TIMBER MILL WORKER [address] [place] [address] Nurse Practitioner Advanced Practice Nurse 02/10/23 Kami Meneses MD [address] [address] Consulting Physician Urology 06/16/23 Anette Bond MD [address] [place] [address] Consulting Physician Gastroenterology 12/25/22 Kay Gordon APRN, TIMBER MILL WORKER #[address] [place] [address] Nurse Practitioner Advanced Practice Nurse 06/16/24 Kami Meneses MD [address] [address] Consulting Physician Urology 08/19/24 Kami Meneses MD [address] [address] Consulting Physician Urology 01/06/25 documented as of this encounter
--- OUTSIDE RECORDS SUMMARY | 2025-02-04 11:43 | XMS_ITS | Clinical Summary ---
Author Organization Unknown Care Team Providers Care Credit Manager Name Role Phone PRABHJOT ESCOBAR, KIRK Unavailable Mikey RUSH SUPERVISING APPRAISER, DAPHNE Unavailable Unavailpatricia PAGE OT, TAMIE Unavailable Unavailable MARCE PT, YANET Unavailable Unavailable VERONICA RN, ABI Unavailable Unavailable LOIS RITTERN, RICARDA Unavailable Unavailable Payers Payer Name Policy Type Policy Number Effective Date Expira tion Date MEDICARE.PALMETTO.[facility] [id number] Problems Condition Name Condition Details Condition Category Status Onset Date Resolution Date Last Treatment Date Treating Clinician Comments TYPE 2 DIABETES MELLITUS W DIABETIC CHRONIC KIDNEY DISEASE Active 08-31 00:00: 00 HYPERTENSIVE CHRONIC KIDNEY DISEASE W 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 Active 08-31 00:00: 00 CHRONIC KIDNEY DISEASE, STAGE 3 UNSPECIFIED Active 08-31 00:00: 00 ENCOUNTER FOR SURGICAL AFTCR FOLLOWING SURGERY ON THE SYS Active 11-10 00:00: 00 STRESS INCONTINENCE (FEMALE) (MALE) Active 11-10 00:00: 00 INTRINSIC SPHINCTER DEFICIENCY (ISD) Active 11-10 00:00: 00 TYPE 2 DIABETES W DIABETIC PERIPHERAL ANGIOPATH W/O GANGRENE Active 08-31 00:00: 00 ATHSCL HEART DISEASE OF [place] CORONARY ARTERY W/O ANG PCTRS Active 08-31 [...] SPECIFIED FUNCTIONAL IMPLANTS Active 08-31 00:00: 00 GROUP HOME (CURRENT) USE OF ASPIRIN Active 08-31 00:00: [...] ophen 325 mg tablet 11-09 00:00: 00 01-10 00:00 :00 No [id number] PAIN 1 tablet DAILY 1 tablet DAILY (route: oral) Med Classific ation: Analgesic , Anti-infl ammatory or Antipyret ic sulfamethox azole 800 mg-trimetho prim 160 mg tablet 11-12 00:00: 00 11-19 23:59 :00 No [id number] PROPHYLATIC 1 tablet 2 TIMES DAILY 1 tablet 2 TIMES DAILY (route: oral) Med Classific ation: Anti-Infe ctive Agents metoprolol tartrate 25 mg tablet 11-03 00:00: 00 Yes [id number] HIGH BLOOD PRESSURE 1 tablet 2 TIMES DAILY 1 tablet 2 TIMES DAILY (route: oral) Med Classific ation: Cardiovas cular Therapy Agents rosuvastati n 40 mg tablet 11-02 00:00: 00 Yes [id number] CHOLESTEROL 1 tablet DAILY 1 tablet DAILY (route: oral) Med Classific ation: Cardiovas cular Therapy Agents Brilinta 60 mg tablet 11-12 00:00: 00 Yes [id number] BLOOD THINNER 1 tablet 2 TIMES DAILY 1 tablet 2 TIMES DAILY (route: oral) Med Classific ation: Hematolog ical Agents acetaminoph en 500 mg tablet 11-12 00:00: 00 Yes [id number] NEEDED FOR PAIN 1-5/10 ON A 1-10 SCALE OR FEVER GREATER THAN 100.1 2 tablet EVERY 6 HOURS 2 tablet EVERY 6 HOURS (route: oral) Med Classific ation: Analgesic , Anti-infl ammatory or Antipyret ic alendronate 70 mg tablet 11-12 00:00: 00 Yes [id number] OSTEOARTHRI TIS 1 tablet WEEKLY 1 tablet WEEKLY (route: oral) Med Classific ation: Endocrine allopurinol 300 mg tablet 11-12 00:00: 00 Yes [id number] GOUT 1 tablet DAILY 1 tablet DAILY (route: oral) Med Classific ation: Gout and Hyperuric emia Therapy alprazolam 0.25 mg tablet 11-12 00:00: 00 Yes [id number] NEEDED FOR ANXIETY 1 tablet 3 TIMES DAILY 1 tablet 3 TIMES DAILY (route: oral) Med Classific ation: Central Nervous System Agents amlodipine 5 mg tablet 11-12 00:00: 00 Yes [id number] HIGH BLOOD PRESSURE 1 tablet DAILY 1 tablet DAILY (route: oral) Med Classific ation: Cardiovas cular Therapy Agents cephalexin 500 mg capsule 11-12 00:00: 00 11-18 23:59 :00 No [id number] PROPHYLATIC 1 capsule 2 TIMES DAILY 1 capsule 2 TIMES DAILY (route: oral) Med Classific ation: Anti-Infe ctive Agents chlorthalid one 25 mg tablet 11-12 00:00: 00 Yes [id number] HIGH BLOOD PRESSURE 1 tablet DAILY 1 tablet DAILY (route: oral) Med Classific ation: Cardiovas cular Therapy Agents Kerendia 10 mg tablet 11-12 00:00: 00 Yes [id number] KIDNEY DISEASE 1 tablet DAILY 1 tablet DAILY (route: oral) Med Classific ation: Cardiovas cular Therapy Agents pantoprazol e 40 mg tablet,ingrid yed release 11-12 00:00: 00 Yes [id number] GASTROESOPH AGEAL REFULX DISEASE 1 tablet DAILY 1 tablet DAILY (route: oral) Med Classific ation: Gastroint estinal Therapy Agents telmisartan 80 mg tablet 11-12 00:00: 00 Yes [id number] HIGH BLOOD PRESSURE 1 tablet DAILY 1 tablet DAILY (route: oral) Med Classific ation: Cardiovas cular Therapy Agents Tradjenta 5 mg tablet 11-12 00:00: 00 Yes [id number] DIABETES 1 tablet DAILY 1 tablet DAILY (route: oral) Med Classific ation: Endocrine nitroglycer in 0.3 mg sublingual tablet 11-12 00:00: 00 Yes [id number] NEEDED FOR CHEST PAIN 1 tablet EVERY 5 MINUTES TIMES 3 1 tablet EVERY 5 MINUTES TIMES 3 (route: sublingual ) Med Classific ation: Cardiovas cular Therapy Agents glimepiride 1 mg tablet 12-13 00:00: 00 Yes [id number] DIABETES 1 mg 2 TIMES DAILY 1 mg 2 TIMES DAILY (route: oral) Alternate Route: BY MOUTH. Med Classific ation: Endocrine Gvoke 1 mg/0.2 mL subcutaneou s solution 12-13 00:00: 00 Yes [id number] LOW BLOOD SUGAR Per instruc tions NEEDED Per instructio ns NEEDED (route: subcutaneo us) Alternate Route: SUBCUTANE OUS. Med Classific ation: Endocrine phenazopyri dine 200 mg tablet 12-21 00:00: 00 Yes [id number] URINARY PAIN 200 mg 3 TIMES DAILY 200 mg 3 TIMES DAILY (route: oral) Alternate Route: BY MOUTH. Med Classific ation: Genitouri nary Therapy Vital Signs Vital Name Observation Time Observation Value Commen ts Temperature 2025-01-30 08:49:00.000 97.7 [degF] Temperature 2025-01-24 12:53:00.000 97.8 [degF] Pulse 2025-01-30 08:49:00.000 64 /min Pulse 2025-01-24 12:53:00.000 62 /min O2 Saturation (%) 2025-01-30 08:49:00.000 99 % O2 Saturation (%) 2025-01-24 12:53:00.000 100 % Respirations 2025-01-30 08:49:00.000 16 /min Respirations 2025-01-24 12:53:00.000 16 /min Weight (lbs) 2025-01-30 08:49:00.000 163 [lb_av] Weight (lbs) 2025-01-24 12:53:00.000 164 [lb_av] Systolic Blood Pressure 2025-01-30 08:49:00.000 122 mm [Hg] Systolic Blood Pressure 2025-01-24 12:53:00.000 124 mm [Hg] Diastolic Blood Pressure 2025-01-30 08:49:00.000 70 mm [Hg] Diastolic Blood Pressure 2025-01-24 12:53:00.000 58 mm [Hg] Plan of Treatment Planned Activity Planned Date Details Comments Future Scheduled Test RN TO OBSE RVE, ASSESS, EVALUATE, AND DEVELOP AN INDIVIDUALIZED PLAN OF CARE. AGENCY MAY ACCEPT ORDERS FROM CONSULTING PHYSICIANS DR SAVANNAH DUENAS RN TO OBSERVE AND ASSESS, COOK CASHIER FOOD PREP/HIDE MILL MAN TO OBSERVE FOR RISK FOR FALLS AND INSTRUCT IN FALL PREVENTION, HOME SAFETY, MEDICATION MANAGEMENT, INFECTION PREVENTION, AND NUTRITION MANAGEMENT. RN/COOK CASHIER FOOD PREP/HIDE MILL MAN NURSE MAY PERFORM O2 SATURATION LEVEL ON ADMISSION AND PRN FOR EVERY VISIT FOR RN TO ASSESS/COOK CASHIER FOOD PREP TO OBSERVE PATIENT, WITH NOTIFICATION TO THE PHYSICIAN IF SATURATION IS 90% IN THE ABSENCE OF MORE SPECIFIC PARAMETERS FROM THE PHYSICIAN. AGENCY MAY PERFORM A RESUMPTION OF CARE VISIT FOLLOWING ANY HOSPITAL ADMISSION. RN/COOK CASHIER FOOD PREP/HIDE MILL MAN TO MONITOR CO-MORBID CONDITIONS LISTED ON THE PLAN OF CARE AND ANY NEW CONDITIONS THAT PRESENT THEMSELVES DURING THIS EPISODE TO IDENTIFY CHANGES AND INTERVENE TO MINIMIZE COMPLICATIONS. [code = RN TO OBSERVE, ASSESS, EVALUATE, AND DEVELOP AN INDIVIDUALIZED PLAN OF CARE. AGENCY MAY ACCEPT ORDERS FROM CONSULTING PHYSICIANS DR SAVANNAH DUENAS RN TO OBSERVE AND ASSESS, COOK CASHIER FOOD PREP/HIDE MILL MAN TO OBSERVE FOR RISK FOR FALLS AND INSTRUCT IN FALL PREVENTION, HOME SAFETY, MEDICATION MANAGEMENT, INFECTION PREVENTION, AND NUTRITION MANAGEMENT. RN/COOK CASHIER FOOD PREP/HIDE MILL MAN NURSE MAY PERFORM O2 SATURATION LEVEL ON ADMISSION AND PRN FOR EVERY VISIT FOR RN TO ASSESS/COOK CASHIER FOOD PREP TO OBSERVE PATIENT, WITH NOTIFICATION TO THE PHYSICIAN IF SATURATION IS 90% IN THE ABSENCE OF MORE SPECIFIC PARAMETERS FROM THE PHYSICIAN. AGENCY MAY PERFORM A RESUMPTION OF CARE VISIT FOLLOWING ANY HOSPITAL ADMISSION. RN/COOK CASHIER FOOD PREP/HIDE MILL MAN TO MONITOR CO-MORBID CONDITIONS LISTED ON THE PLAN OF CARE AND ANY NEW CONDITIONS THAT PRESENT THEMSELVES DURING THIS EPISODE TO IDENTIFY CHANGES AND INTERVENE TO MINIMIZE COMPLICATIONS.] Future Scheduled Test MEDICATION MANAGEMENT; RN/COOK CASHIER FOOD PREP/HIDE MILL MAN TO REVIEW MEDICATIONS FOR INTERACTIONS, EFFECTIVENESS OF DRUG THERAPY, AND SIGNS/SYMPTOMS OF ADVERSE REACTIONS. MAY INSTRUCT AND REINFORCE MEDICATION TEACHING RELATED TO THE USE OF MEDICATIONS, DOSAGE, FREQUENCY, PURPOSE, SIDE EFFECTS, AND TO REPORT COMPLICATIONS. [code = MEDICATION MANAGEMENT; RN/COOK CASHIER FOOD PREP/HIDE MILL MAN TO REVIEW MEDICATIONS FOR INTERACTIONS, EFFECTIVENESS OF DRUG THERAPY, AND SIGNS/SYMPTOMS OF ADVERSE REACTIONS. MAY INSTRUCT AND REINFORCE MEDICATION TEACHING RELATED TO THE USE OF MEDICATIONS, DOSAGE, FREQUENCY, PURPOSE, SIDE EFFECTS, AND TO REPORT COMPLICATIONS.] Future Scheduled Test ANTITHROMB OTIC MANAGEMENT; RN TO ASSESS AND TEACH, COOK CASHIER FOOD PREP/HIDE MILL MAN TO OBSERVE/TEACH/MONITOR EFFECTIVENESS OF ANTITHROMBOTIC THERAPY. RN/COOK CASHIER FOOD PREP/HIDE MILL MAN TO INSTRUCT ON SIGNS AND SYMPTOMS OF BLEEDING/ADVERSE REACTIONS TO REPORT TO PHYSICIAN. PATIENT PRESCRIBED BRILINTA [code = ANTITHROMBOTIC MANAGEMENT; RN TO ASSESS AND TEACH, COOK CASHIER FOOD PREP/HIDE MILL MAN TO OBSERVE/TEACH/MONITOR EFFECTIVENESS OF ANTITHROMBOTIC THERAPY. RN/COOK CASHIER FOOD PREP/HIDE MILL MAN TO INSTRUCT ON SIGNS AND SYMPTOMS OF BLEEDING/ADVERSE REACTIONS TO REPORT TO PHYSICIAN. PATIENT PRESCRIBED BRILINTA] Future Scheduled Test RISK FOR H OSPITALIZATION; RN TO ASSESS/TEACH, HIDE MILL MAN/COOK CASHIER FOOD PREP TO OBSERVE/TEACH PATIENT/CAREGIVER ON RISK FOR HOSPITALIZATION/EMERGENCY ROOM VISITS, TEACH SIGNS AND SYMPTOMS THAT PUT PATIENT AT RISK, WHEN TO NOTIFY NURSE/PHYSICIAN OF COMPLICATIONS/DECLINE, AND WHEN TO CALL 911. [code = RISK FOR HOSPITALIZATION; RN TO ASSESS/TEACH, HIDE MILL MAN/COOK CASHIER FOOD PREP TO OBSERVE/TEACH PATIENT/CAREGIVER ON RISK FOR HOSPITALIZATION/EMERGENCY ROOM VISITS, TEACH SIGNS AND SYMPTOMS THAT PUT PATIENT AT RISK, WHEN TO NOTIFY NURSE/PHYSICIAN OF COMPLICATIONS/DECLINE, AND WHEN TO CALL 911.] Future Scheduled Test CARDIOVASC ULAR SYSTEM; RN TO ASSESS/TEACH, COOK CASHIER FOOD PREP/HIDE MILL MAN TO OBSERVE/TEACH RELATED TO ALTERED CARDIOVASCULAR STATUS TO MINIMIZE COMPLICATIONS AND REDUCE HOSPITALIZATION. [code = CARDIOVASCULAR SYSTEM; RN TO ASSESS/TEACH, COOK CASHIER FOOD PREP/HIDE MILL MAN TO OBSERVE/TEACH RELATED TO ALTERED CARDIOVASCULAR STATUS TO MINIMIZE COMPLICATIONS AND REDUCE HOSPITALIZATION.] Future Scheduled Test HYPERTENSI ON MANAGEMENT; RN TO ASSESS AND TEACH, COOK CASHIER FOOD PREP/HIDE MILL MAN TO OBSERVE AND TEACH WARNING SIGNS AND SYMPTOMS TO AVOID HOSPITALIZATION. [code = HYPERTENSION MANAGEMENT; RN TO ASSESS AND TEACH, COOK CASHIER FOOD PREP/HIDE MILL MAN TO OBSERVE AND TEACH WARNING SIGNS AND SYMPTOMS TO AVOID HOSPITALIZATION.] Future Scheduled Test RN/COOK CASHIER FOOD PREP/HIDE MILL MAN TO PERFORM/TEACH INCISION CARE TO AREA: UPPER ABDOMINAL AREA CLOSED WITH GLUE PATIENT MAY SHOWER. LEAVE OPEN TO AIR. DO NOT APPLY LOTION TO GLUE. [code = RN/COOK CASHIER FOOD PREP/HIDE MILL MAN TO PERFORM/TEACH INCISION CARE TO AREA: UPPER ABDOMINAL AREA CLOSED WITH GLUE PATIENT MAY SHOWER. LEAVE OPEN TO AIR. DO NOT APPLY LOTION TO GLUE.] Future Scheduled Test WOUND MOLE CULAR TESTING PROTOCOL UP TO 3 PRN RN/COOK CASHIER FOOD PREP VISITS MAY BE PERFORMED FOR S/S OF WOUND INFECTION/DETERIORATION/STAGNATION. RN TO ASSESS, COOK CASHIER FOOD PREP/HIDE MILL MAN TO OBSERVE AND INITIATE PROTOCOL. RN/COOK CASHIER FOOD PREP/HIDE MILL MAN TO INSTRUCT PATIENT AND/OR CAREGIVER ON S/S OF WOUND INFECTION/DETERIORATION/STAGNATION TO REPORT TO NURSE IF NEW OR WORSENING SYMPTOMS. RN/COOK CASHIER FOOD PREP/HIDE MILL MAN TO OBTAIN MOLECULAR WOUND TESTING VIA SWAB COLLECTION PER POLICY. [id number] NOTIFY PROVIDER OF RESULTS AND OBTAIN FURTHER ORDERS. [code = WOUND MOLECULAR TESTING PROTOCOL UP TO 3 PRN RN/COOK CASHIER FOOD PREP VISITS MAY BE PERFORMED FOR S/S OF WOUND INFECTION/DETERIORATION/STAGNATION. RN TO ASSESS, COOK CASHIER FOOD PREP/HIDE MILL MAN TO OBSERVE AND INITIATE PROTOCOL. RN/COOK CASHIER FOOD PREP/HIDE MILL MAN TO INSTRUCT PATIENT AND/OR CAREGIVER ON S/S OF WOUND INFECTION/DETERIORATION/STAGNATION TO REPORT TO NURSE IF NEW OR WORSENING SYMPTOMS. RN/COOK CASHIER FOOD PREP/HIDE MILL MAN TO OBTAIN MOLECULAR WOUND TESTING VIA SWAB COLLECTION PER POLICY. [id number] NOTIFY PROVIDER OF RESULTS AND OBTAIN FURTHER ORDERS.] Future Scheduled Test DIABETES M ANAGEMENT; RN TO ASSESS AND TEACH, HIDE MILL MAN/COOK CASHIER FOOD PREP TO OBSERVE AND TEACH INSTRUCTIONS OF DIABETIC CARE TO INCLUDE: DIET DIABETIC SKIN CARE, SIGNS AND SYMPTOMS OF HYPO/HYPERGLYCEMIA, PROPER ADMINISTRATION OF DIABETIC MEDICATION. RN/HIDE MILL MAN/COOK CASHIER FOOD PREP TO INSTRUCT ON DIABETIC FOOT CARE AND MONITOR FOR SKIN LESIONS ON LOWER EXTREMITIES. BLOOD GLUCOSE TESTING PRN RN TO ASSESS AND TEACH, HIDE MILL MAN/COOK CASHIER FOOD PREP TO OBSERVE AND TEACH PATIENT/CAREGIVER ABILITY TO PERFORM AND RECORD BLOOD GLUCOSE TESTING ORDERED AND TO REPORT ABNORMAL FINDINGS TO PHYSICIAN. RN/HIDE MILL MAN/COOK CASHIER FOOD PREP MAY PERFORM BLOOD GLUCOSE TEST NEEDED. RN/HIDE MILL MAN/COOK CASHIER FOOD PREP TO REPORT TO PHYSICIAN BLOOD GLUCOSE READINGS GREATER THAN 300 OR LESS THAN 70 RN/HIDE MILL MAN/COOK CASHIER FOOD PREP TO INSTRUCT PATIENT ON IMPORTANCE OF HGBA1C MONITORING, KIDNEY FUNCTION TEST, EYE AND FOOT EXAMS. [code = DIABETES MANAGEMENT; RN TO ASSESS AND TEACH, HIDE MILL MAN/COOK CASHIER FOOD PREP TO OBSERVE AND TEACH INSTRUCTIONS OF DIABETIC CARE TO INCLUDE: DIET DIABETIC SKIN CARE, SIGNS AND SYMPTOMS OF HYPO/HYPERGLYCEMIA, PROPER ADMINISTRATION OF DIABETIC MEDICATION. RN/HIDE MILL MAN/COOK CASHIER FOOD PREP TO INSTRUCT ON DIABETIC FOOT CARE AND MONITOR FOR SKIN LESIONS ON LOWER EXTREMITIES. BLOOD GLUCOSE TESTING PRN RN TO ASSESS AND TEACH, HIDE MILL MAN/COOK CASHIER FOOD PREP TO OBSERVE AND TEACH PATIENT/CAREGIVER ABILITY TO PERFORM AND RECORD BLOOD GLUCOSE TESTING ORDERED AND TO REPORT ABNORMAL FINDINGS TO PHYSICIAN. RN/HIDE MILL MAN/COOK CASHIER FOOD PREP MAY PERFORM BLOOD GLUCOSE TEST NEEDED. RN/HIDE MILL MAN/COOK CASHIER FOOD PREP TO REPORT TO PHYSICIAN BLOOD GLUCOSE READINGS GREATER THAN 300 OR LESS THAN 70 RN/HIDE MILL MAN/COOK CASHIER FOOD PREP TO INSTRUCT PATIENT ON IMPORTANCE OF HGBA1C MONITORING, KIDNEY FUNCTION TEST, EYE AND FOOT EXAMS.] Future Scheduled Test GENITOURIN KEZIA MANAGEMENT; RN TO ASSESS AND TEACH, COOK CASHIER FOOD PREP/HIDE MILL MAN TO OBSERVE AND TEACH RELATED TO ALTERED GENITOURINARY STATUS TO MINIMIZE COMPLICATIONS AND REDUCE HOSPITALIZATION. [code = GENITOURINARY MANAGEMENT; RN TO ASSESS AND TEACH, COOK CASHIER FOOD PREP/HIDE MILL MAN TO OBSERVE AND TEACH RELATED TO ALTERED GENITOURINARY STATUS TO MINIMIZE COMPLICATIONS AND REDUCE HOSPITALIZATION.] Future Scheduled Test URINARY CU LTURE AND SENSITIVITY PROTOCOL UP TO 2 PRN RN/COOK CASHIER FOOD PREP/HIDE MILL MAN VISITS MAY BE PERFORMED FOR S/S OF UTI. RN TO ASSESS, COOK CASHIER FOOD PREP/HIDE MILL MAN TO OBSERVE INITIATION OF UTI PROTOCOL. RN/HIDE MILL MAN/COOK CASHIER FOOD PREP TO INSTRUCT PATIENT AND/OR CAREGIVER ON S/S OF UTI TO REPORT TO RN/COOK CASHIER FOOD PREP/HIDE MILL MAN IF NEW OR WORSENING SYMPTOMS. DRINK PLENTY OF WATER THROUGHOUT THE DAY TO MAINTAIN HYDRATION (UNLESS CONTRAINDICATED.) URINATE WHEN THE URGE IS FELT, DO NOT WAIT. WASH GENITALS DAILY. WIPE FROM FRONT TO BACK AFTER HAVING A BOWEL MOVEMENT. RN/HIDE MILL MAN/COOK CASHIER FOOD PREP TO OBTAIN UA WITH C/S VIA CLEAN CATCH URINE AND IF UNABLE TO OBTAIN MAY PERFORM AN IN AND OUT CATH. IF PATIENT HAS INDWELLING CATHETER MAY OBTAIN FROM SAMPLING PORT. NOTIFY PROVIDER OF RESULTS AND OBTAIN FURTHER ORDERS. [code = URINARY CULTURE AND SENSITIVITY PROTOCOL UP TO 2 PRN RN/COOK CASHIER FOOD PREP/HIDE MILL MAN VISITS MAY BE PERFORMED FOR S/S OF UTI. RN TO ASSESS, COOK CASHIER FOOD PREP/HIDE MILL MAN TO OBSERVE INITIATION OF UTI PROTOCOL. RN/HIDE MILL MAN/COOK CASHIER FOOD PREP TO INSTRUCT PATIENT AND/OR CAREGIVER ON S/S OF UTI TO REPORT TO RN/COOK CASHIER FOOD PREP/HIDE MILL MAN IF NEW OR WORSENING SYMPTOMS. DRINK PLENTY OF WATER THROUGHOUT THE DAY TO MAINTAIN HYDRATION (UNLESS CONTRAINDICATED.) URINATE WHEN THE URGE IS FELT, DO NOT WAIT. WASH GENITALS DAILY. WIPE FROM FRONT TO BACK AFTER HAVING A BOWEL MOVEMENT. RN/HIDE MILL MAN/COOK CASHIER FOOD PREP TO OBTAIN UA WITH C/S VIA CLEAN CATCH URINE AND IF UNABLE TO OBTAIN MAY PERFORM AN IN AND OUT CATH. IF PATIENT HAS INDWELLING CATHETER MAY OBTAIN FROM SAMPLING PORT. NOTIFY PROVIDER OF RESULTS AND OBTAIN FURTHER ORDERS.] Future Scheduled Test URINARY IN CONTINENCE MANAGEMENT; RN TO ASSESS AND TEACH, COOK CASHIER FOOD PREP/LVNTO OBSERVE AND TEACH MANAGEMENT OF URINARY INCONTINENCE. TEACH/INSTRUCT ON PREVENTING INFECTION AND SKIN BREAKDOWN. RN/COOK CASHIER FOOD PREP/HIDE MILL MAN MAY INSTRUCT IN BLADDER TRAINING PROGRAM INDICATED. [code = URINARY INCONTINENCE MANAGEMENT; RN TO ASSESS AND TEACH, COOK CASHIER FOOD PREP/LVNTO OBSERVE AND TEACH MANAGEMENT OF URINARY INCONTINENCE. TEACH/INSTRUCT ON PREVENTING INFECTION AND SKIN BREAKDOWN. RN/COOK CASHIER FOOD PREP/HIDE MILL MAN MAY INSTRUCT IN BLADDER TRAINING PROGRAM INDICATED.] Future Scheduled Test URINARY MO LECULAR TESTING PROTOCOL UP TO 2 PRN RN/COOK CASHIER FOOD PREP/HIDE MILL MAN VISITS MAY BE PERFORMED FOR S/S OF UTI. RN TO ASSESS, COOK CASHIER FOOD PREP/HIDE MILL MAN TO OBSERVE INITIATION OF UTI PROTOCOL. RN/HIDE MILL MAN/COOK CASHIER FOOD PREP TO INSTRUCT PATIENT AND/OR CAREGIVER ON S/S OF UTI TO REPORT TO RN/HIDE MILL MAN/COOK CASHIER FOOD PREP IF NEW OR WORSENING SYMPTOMS. DRINK PLENTY OF WATER THROUGHOUT THE DAY TO MAINTAIN HYDRATION (UNLESS CONTRAINDICATED.) URINATE WHEN THE URGE IS FELT, DO NOT WAIT. WASH GENITALS DAILY. WIPE FROM FRONT TO BACK AFTER HAVING A BOWEL MOVEMENT. RN/HIDE MILL MAN/COOK CASHIER FOOD PREP TO OBTAIN MOLECULAR URINE TESTING BY OPTION 1 OR OPTION 2 (OPTION 1) RN/HIDE MILL MAN/COOK CASHIER FOOD PREP TO OBTAIN U/A WITH REFLEX TO UTI PANEL (MOLECULAR) VIA CLEAN CATCH URINE AND IF UNABLE TO OBTAIN MAY PERFORM AN IN AND OUT CATH. IF PATIENT HAS INDWELLING CATHETER MAY OBTAIN FROM SAMPLING PORT. (OPTION 2) RN/HIDE MILL MAN/COOK CASHIER FOOD PREP TO OBTAIN UTI PANEL (MOLECULAR) VIA SWAB COLLECTION METHOD FROM ADULT BRIEF/DIAPER OR PAD IF PATIENT IS INCONTINENT. NOTIFY PROVIDER OF RESULTS AND OBTAIN FURTHER ORDERS. [code = URINARY MOLECULAR TESTING PROTOCOL UP TO 2 PRN RN/COOK CASHIER FOOD PREP/HIDE MILL MAN VISITS MAY BE PERFORMED FOR S/S OF UTI. RN TO ASSESS, COOK CASHIER FOOD PREP/HIDE MILL MAN TO OBSERVE INITIATION OF UTI PROTOCOL. RN/HIDE MILL MAN/COOK CASHIER FOOD PREP TO INSTRUCT PATIENT AND/OR CAREGIVER ON S/S OF UTI TO REPORT TO RN/HIDE MILL MAN/COOK CASHIER FOOD PREP IF NEW OR WORSENING SYMPTOMS. DRINK PLENTY OF WATER THROUGHOUT THE DAY TO MAINTAIN HYDRATION (UNLESS CONTRAINDICATED.) URINATE WHEN THE URGE IS FELT, DO NOT WAIT. WASH GENITALS DAILY. WIPE FROM FRONT TO BACK AFTER HAVING A BOWEL MOVEMENT. RN/HIDE MILL MAN/COOK CASHIER FOOD PREP TO OBTAIN MOLECULAR URINE TESTING BY OPTION 1 OR OPTION 2 (OPTION 1) RN/HIDE MILL MAN/COOK CASHIER FOOD PREP TO OBTAIN U/A WITH REFLEX TO UTI PANEL (MOLECULAR) VIA CLEAN CATCH URINE AND IF UNABLE TO OBTAIN MAY PERFORM AN IN AND OUT CATH. IF PATIENT HAS INDWELLING CATHETER MAY OBTAIN FROM SAMPLING PORT. (OPTION 2) RN/HIDE MILL MAN/COOK CASHIER FOOD PREP TO OBTAIN UTI PANEL (MOLECULAR) VIA SWAB COLLECTION METHOD FROM ADULT BRIEF/DIAPER OR PAD IF PATIENT IS INCONTINENT. NOTIFY PROVIDER OF RESULTS AND OBTAIN FURTHER ORDERS.] Future Scheduled Test PRN VISITS ; NUMBER OF RN/COOK CASHIER FOOD PREP/HIDE MILL MAN VISITS: 1 RN/COOK CASHIER FOOD PREP/HIDE MILL MAN TO PERFORM: SURGICAL INCISION MANAGEMENT FOR THE FOLLOWING REASONS: COMPLICATIONS [code = PRN VISITS; NUMBER OF RN/COOK CASHIER FOOD PREP/HIDE MILL MAN VISITS: 1 RN/COOK CASHIER FOOD PREP/HIDE MILL MAN TO PERFORM: SURGICAL INCISION MANAGEMENT FOR THE FOLLOWING REASONS: COMPLICATIONS ] Future Scheduled Test FALL REDUC TION MANAGEMENT; RN TO ASSESS AND OBSERVE, COOK CASHIER FOOD PREP/HIDE MILL MAN TO OBSERVE FALL RISK FACTORS AND EDUCATE PATIENT/CAREGIVER ON STRATEGIES TO MINIMIZE THE RISK OF FALLING. [code = FALL REDUCTION MANAGEMENT; RN TO ASSESS AND OBSERVE, COOK CASHIER FOOD PREP/HIDE MILL MAN TO OBSERVE FALL RISK FACTORS AND EDUCATE PATIENT/CAREGIVER ON STRATEGIES TO MINIMIZE THE RISK OF FALLING.] Future Scheduled Test CANCER MAN AGEMENT; RN TO ASSESS AND TEACH, HIDE MILL MAN/COOK CASHIER FOOD PREP TO OBSERVE AND TEACH AND PROVIDE EDUCATION ON CANCER. [code = CANCER MANAGEMENT; RN TO ASSESS AND TEACH, HIDE MILL MAN/COOK CASHIER FOOD PREP TO OBSERVE AND TEACH AND PROVIDE EDUCATION ON CANCER.] Future Scheduled Test PAIN MANAG EMENT; RN TO ASSESS AND TEACH, HIDE MILL MAN/COOK CASHIER FOOD PREP TO OBSERVE AND TEACH AND PROVIDE EDUCATION ON PAIN MANAGEMENT TECHNIQUES. [code = PAIN MANAGEMENT; RN TO ASSESS AND TEACH, HIDE MILL MAN/COOK CASHIER FOOD PREP TO OBSERVE AND TEACH AND PROVIDE EDUCATION ON PAIN MANAGEMENT TECHNIQUES.] Goal 2025-01-06 Patient Goal - G ET BETTER FROM THIS SURGERY. Goal Patient Goal - G ET BETTER FROM THIS SURGERY. Goal 2025-01-10 Patient Goal - G ET BETTER FROM THIS SURGERY. Goal Provider Goal - A PLAN OF CARE WILL BE ESTABLISHED THAT MEETS THE PATIENTS NEEDS. PATIENT WILL DEMONSTRATE OXYGEN SATURATION WITHIN NORMAL LIMITS OR PATIENTS OPTIMAL LEVEL ESTABLISHED BY THE PHYSICIAN THROUGHOUT CARE. CHANGES TO CO-MORBID CONDITIONS AND ANY NEW CONDITIONS WILL BE IDENTIFIED AND REPORTED TO THE PHYSICIAN. Goal Provider Goal - PATIENT/CAREGIVER TO VERBALIZE, AND CONSISTENTLY DEMONSTRATE EFFECTIVE, SAFE MANAGEMENT OF MEDICATION INCLUDING KNOWLEDGE OF EFFECTIVENESS, POTENTIAL SIDE EFFECTS AND DRUG REACTIONS AND WHEN TO CONTACT THE APPROPRIATE CARE PROVIDER. PATIENT/CAREGIVER WILL BE ABLE TO VERBALIZE UNDERSTANDING OF MEDICATION REGIMEN AND ACCURATELY TAKE MEDICATIONS PRESCRIBED WITHOUT ADVERSE EFFECTS BY EOE Goal Provider Goal - PATIENT / CAREGIVER WILL PROMPTLY REPORT SIGNS AND SYMPTOMS OF BLEEDING OR ADVERSE REACTIONS TO THE PHYSICIAN. PATIENT/CAREGIVER WILL VERBALIZE UNDERSTANDING OF ANTITHROMBOTIC THERAPY MANAGEMENT BY END OF EPISODE. Goal Provider Goal - PATIENT/CAREGIVER WILL VERBALIZE UNDERSTANDING OF SIGNS AND SYMPTOMS THAT PUT THE PATIENT AT RISK FOR HOSPITALIZATION /EMERGENCY ROOM VISITS, WHEN TO NOTIFY NURSE/PHYSICIAN OF COMPLICATIONS/DECLINE AND WHEN TO CALL 911. Goal Provider Goal - PATIENT / CAREGIVER WILL VERBALIZE/DEMONSTRATE UNDERSTANDING OF MEASURES TO MANAGE ALTERED CARDIOVASCULAR STATUS BY EOE Goal Provider Goal - PATIENT / CAREGIVER WILL VERBALIZE/DEMONSTRATE AN ABILITY TO ADHERE TO SELF-MANAGEMENT OF HTN TO MINIMIZE COMPLICATIONS AND AVOID HOSPITALIZATION BY END OF EPISODE. Goal Provider Goal - PATIENT / CAREGIVER WILL VERBALIZE / DEMONSTRATE ABILITY TO PERFORM WOUND CARE. WOUND STATUS WILL IMPROVE EVIDENCED BY A DECREASE IN SIZE, DRAINAGE, ABSENCE OF INFECTION, AND DECREASED PAIN BY EOE Goal Provider Goal - PATIENT WILL DEMONSTRATE IMPROVEMENT IN S/S OF WOUND INFECTION/DETERIORATION/STAGNATION TO AVOID HOSPITALIZATION. Goal Provider Goal - PATIENT / CAREGIVER WILL VERBALIZE / DEMONSTRATE AN ABILITY TO ADHERE TO SELF-MANAGEMENT OF DIABETES MANAGEMENT BY EOE Goal Provider Goal - PATIENT / CAREGIVER WILL VERBALIZE/DEMONSTRATE UNDERSTANDING OF MEASURES TO MANAGE ALTERED GENITOURINARY STATUS BY END OF EPISODE. Goal Provider Goal - PATIENT WILL DEMONSTRATE IMPROVEMENT IN S/S OF UTI TO AVOID HOSPITALIZATION. Goal Provider Goal - PATIENT/CAREGIVER WILL VERBALIZE/DEMONSTRATE UNDERSTANDING OF CARE AND MANAGEMENT OF URINARY INCONTINENCE BY EOE Goal Provider Goal - PATIENT WILL DEMONSTRATE IMPROVEMENT IN S/S OF UTI TO AVOID HOSPITALIZATION. Goal Provider Goal - Goal Provider Goal - PATIENT/CAREGIVER WILL VERBALIZE/DEMONSTRATE UNDERSTANDING OF FALL RISK FACTORS AND IMPLEMENT STRATEGIES TO MINIMIZE FALL RISK. PATIENT/CAREGIVER WILL VERBALIZE/DEMONSTRATE AN ABILITY TO ADHERE TO FALL REDUCTION SELF-MANAGEMENT AND LIFE-STYLE CHANGES BY EOE Goal Provider Goal - PATIENT / CAREGIVER WILL VERBALIZE/DEMONSTRATE UNDERSTANDING OF MEASURES TO MINIMIZE COMPLICATIONS AND REDUCE HOSPITALIZATION RELATED TO CANCER BY END OF EPISODE. Goal Provider Goal - PATIENT / CAREGIVER WILL VERBALIZE / DEMONSTRATE UNDERSTANDING OF PAIN CONTROL MEASURES BY EOE Encounters Start Date/Time End Date/Time Encounter Type Admission Type Attending [facility] Care Department Encounter ID Discharge Date Discharge Status Discharge Condition Discharge Reason Percent Goals Met 2025-01-13 00:00:00 2025-03-13 00:00:00 Outpatient [facility] [id number] 30.00
--- OUTSIDE RECORDS SUMMARY | 2025-02-04 11:43 | XMS_ITS | Encounter Summary ---
Author Organization [facility] Address [address] [place] [address] Phone Care Team Providers Care Airline Dispatcher Name Role Phone Fuentes Orellana MD Primary Care Provider [phone] Brent Dickinson DO Unavailable [phone] Faviola Jiménez PILOT, FORMS ANALYSIS MANAGER Unavailable Shawnee Mckinney MD Unavailable Chicho Clayton MD Unavailable Lai Lambert PILOT, FORMS ANALYSIS MANAGER Unavailable Kami Meneses MD Unavailable [phone] Anette Bond MD Unavailable [phone] Kay Gordon PILOT, FORMS ANALYSIS MANAGER Unavailable Kami Meneses MD Unavailable [phone] Kami Meneses MD Unavailable [phone] Reason for Visit * Reason Comments Medication Refill Encounter Details Date Type Department Care Team (Late st Contact Info) Description 03/25/2021 Refill [facility] - Gastroenterology - [place] [address] [place] [address] Ingrid Mccloud Ashley, PAC [address] [place] [address] Medication Refill Social History Tobacco Use Types [...] 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 difficile Rule-Out 04/10/2021 04/10/20212020 12:16 AM CDT documented as of this encounter Care Teams Airline Dispatcher Relationship Specialty Start Date End Date Fuentes Orellana MD [address] [facility] [place] [address] PCP - General Family Medicine 07/06/15 Brent Dickinson DO [address] [facility] [place] [address] Gastroenterology 06/27/16 Faviola Jiménez APRN, FORMS ANALYSIS MANAGER [address] [place] [address] Nurse Practitioner Advanced Practice Nurse 07/22/16 Shawnee Mckinney MD [address] [facility] [address] [place] [address] Urologist Urology 06/07/19 Chicho Clayton MD 4921 [facility] 7 [place] [address] Oncology 06/13/19 Lai Lambert APRN, FORMS ANALYSIS MANAGER #[address] [place] [address] Nurse Practitioner Advanced Practice Nurse 02/10/23 Kami Meneses MD #[address] [address] Consulting Physician Urology 06/16/23 Anette Bond MD #2 [place] [address] Consulting Physician Gastroenterology 12/25/22 Kay Gordon APRN, FORMS ANALYSIS MANAGER [address] [place] [address] Nurse Practitioner Advanced Practice Nurse 06/16/24 Kami Meneses MD [address] [address] Consulting Physician Urology 08/19/24 Kami Meneses MD [address] [address] Consulting Physician Urology 01/06/25 documented as of this encounter
--- OUTSIDE RECORDS SUMMARY | 2025-02-04 11:43 | XMS_ITS | Encounter Summary ---
Author Organization [facility] Address [address] [place] [address] Phone Care Team Providers Care Lurer Name Role Phone Fuentes Orellana MD Primary Care Provider Brent Dickinson DO Unavailable [phone] Faviola Jiménez FRUIT AND VEGETABLE FACTORY WORKER, INTERVENTION SPECIALIST Unavailable Shawnee Mckinney MD Unavailable Chicho Clayton MD Unavailable Lai Lambert FRUIT AND VEGETABLE FACTORY WORKER, INTERVENTION SPECIALIST Unavailable Kami Meneses MD Unavailable [phone] Anette Bond MD Unavailable [phone] Kay Gordon FRUIT AND VEGETABLE FACTORY WORKER, INTERVENTION SPECIALIST Unavailable Kami Meneses MD Unavailable [phone] Kami Meneses MD Unavailable [phone] Reason for Visit * Reason Comments Medication Refill Encounter Details Date Type Department Care Team (Late st Contact Info) Description 11/12/2022 Refill [facility] - [facility] #[address] [place] [address] Ingrid Mccloud Ashley, PAC [address] [place] [address] Medication Refill Social History Tobacco Use Types [...] 03/10/2025 2:15 PM CDT Office Visit [facility] [address] [place] [address] Kami Meneses MD [address], [address] [address] documented as of this encounter Visit Diagnoses Not on filedocumented in this encounter Care Teams Lurer Relationship Specialty Start Date End Date Fuentes Orellana MD [address] [address] PCP - General Family Medicine 07/06/15 Brent Dickinson DO [address] [address] Gastroenterology 06/27/16 Faviola Jiménez APRN, INTERVENTION SPECIALIST -[place] [address] Nurse Practitioner Advanced Practice Nurse 07/22/16 Shawnee Mckinney MD 4960 [facility] [address] [place] [address] Urologist Urology 06/07/19 Chicho Clayton MD [address] [facility] 7 [place] [address] Oncology 06/13/19 Lai Lambert APRN, INTERVENTION SPECIALIST #2 [place] [address] Nurse Practitioner Advanced Practice Nurse 02/10/23 Kami Meneses MD #[address] [address] Consulting Physician Urology 06/16/23 Anette Bond MD #2 [place] [address] Consulting Physician Gastroenterology 12/25/22 Kay Gordon APRN, INTERVENTION SPECIALIST #2 [place] [address] Nurse Practitioner Advanced Practice Nurse 06/16/24 Kami Meneses MD #[address] [address] Consulting Physician Urology 08/19/24 Kami Meneses MD #[address] [address] Consulting Physician Urology 01/06/25 documented as of this encounter
--- OUTSIDE RECORDS SUMMARY | 2025-02-04 11:43 | XMS_ITS | Clinical Summary ---
Author Organization [facility] Address [address], [facility] [address] [place] [address] Phone Care Team Providers Care Director Housekeeping Name Role Phone Fuentes Orellana MD Primary Care Provider [phone] Brent Dickinson DO Unavailable [phone] Faviola Jiménez PROJECT GEOLOGIST, SIGN LANGUAGE INTERPRETER Unavailable Shawnee Mckinney MD Unavailable Chicho Clayton MD Unavailable Lai Lambert PROJECT GEOLOGIST, SIGN LANGUAGE INTERPRETER Unavailable [phone] Kami Meneses MD Unavailable [phone] Anette Bond MD Unavailable [phone] Kay Gordon PROJECT GEOLOGIST, SIGN LANGUAGE INTERPRETER Unavailable Kami Meneses MD Unavailable [phone] Kami Meneses MD Unavailable [phone] Allergies No known active allergies Medications [...] by mouth every 12 hours 5 Active Hospital, Clinic, or Other Facility Administered Medication Ordered Dose Route Frequency Start Date End Date Status lidocaine Urethral/Mucosal (GLYDO) 2 % prefilled syringe for urethral catheter insertion PRSY 5 mLIndications:UTI symptoms,Stress incontinence (female) (male) 5 mL TU ONCE 01/20/2025 01/20/2025 Ended Active Problems Problem Noted Date Diagnosed Date 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 Iron deficiency anemia 02/15/2020 Collagenous colitis 07/22/2016 Gastroesophageal reflux disease 07/22/2016 Hx of colonic polyps 07/22/2016 Encounters Date Type Department Care Team Description 01/20/2025 10:00 AM CDT Office Visit [facility] [facility] [facility] [place] [address] Kami Meneses MD UTI symptoms (Primary Dx); Stress incontinence (female) (male); Dysuria Discharge Disposition: Discharged to home or Selfcare 01/20/2025 Travel 01/13/2025 Telephone [facility] [address] [place] [address] Kami Meneses MD 01/10/2025 1:30 PM CDT Office Visit [facility] [address] [place] [address] Kami Meneses MD UTI symptoms (Primary Dx) Discharge Disposition: Discharged to home or Selfcare 01/10/2025 Travel 12/23/2024 9:00 AM CDT Office Visit [facility] #[address] [place] [address] Kami Meneses MD UTI symptoms (Primary Dx) Discharge Disposition: Discharged to home or Selfcare 12/23/2024 Travel 12/21/2024 Telephone [facility] #[address] [place] [address] Kami Meneses MD Testicle Pain 12/16/2024 10:45 AM CDT Office Visit [facility] #[address] [place] [address] Kami Meneses MD Stress incontinence (female) (male) (Primary Dx) Discharge Disposition: Discharged to home or Selfcare 12/16/2024 Telephone [facility] #[address] [place] [address] Kami Meneses MD 12/16/2024 Travel from Last 3 Months Immunizations Immunization [...] 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 Not on file Not on cory e Last Filed Vital Signs Vital Sign Reading Time Taken Comments Blood Pressure 129/68 01/20/2025 9:49 AM CDT Pulse 71 01/20/2025 9:49 AM CDT Temperature 36.4 C (97.6 F) 08/10/2024 9:53 AM OPTICAL DISPENSER Respiratory Rate 18 01/20/2025 9:49 AM CDT Oxygen Saturation 91% 01/20/2025 9:49 AM CDT Inhaled Oxygen Concentration - - Weight 74.4 kg (164 lb) 01/20/2025 9:49 AM CDT Height 162.6 cm (5' 4) 01/20/2025 9:49 AM CDT Body Mass Index 28.15 01/20/2025 9:49 AM CDT Plan of Treatment Upcoming Encounters Date Type Department Care Team (Late st Contact Info) Description 03/10/2025 2:15 PM CDT Office Visit [facility] [address] [place] [address] Kami Meneses MD #[address] [address] Health Maintenance Due Date Last Done Comments [...] Years (Adults With 1 Tdap) 10/07/2030 10/07/2020 Pneumococcal Immunization Combined Discontinued 11/22/2014, 11/22/2014 DTaP/Tdap/Td [...] Procedure Name Priority Date/Time Associated Diagnosis Comments CYSTOURETHROSCOPY Routine 01/20/2025 10: 00 AM CDT Dysuria POCT UA AUTOMATED W/O MICRO Routine 01/20/2025 9:55 AM CDT UTI symptoms Stress incontinence (female) (male) CULTURE, URINE Routine 01/10/2025 1:45 PM CDT UTI symptoms CULTURE, URINE Routine 12/23/2024 10:48 AM CDT UTI symptoms HM COLONOSCOPY Routine 05/24/2020 from Last 3 Months or Most Recently Relevant to Health Maintenance Results * CYSTOURETHROSCOPY (01/20/2025 10:00 AM CDT) Narrative Kami Meneses MD - 01/20/2025 10:00 AM CDT Kami Meneses MD 01/25/2025 9:38 PM Cystoscopy Procedure Note Date of Visit: 01/20/2025 Cystourethroscopy Derek Freeman is a 74 y.o. male who presents for cystoscopy. Indication(s): Dysuria. Verbal and written consent was obtained. Risks [...] was administered transurethrally. A well lubricated 16 Dutch flexible cystoscope was introduced transurethrally. Findings: Urethra: No evidence of erosion, good coaptation noted The patient tolerated the procedure well. Specimen sent: None Plan: See progress note Kami Gleason MD [place] - SURGERY Final Result * POCT UA AUTOMATED W/O MICRO (01/20/2025 9:55 AM CDT) [facility] POC UA SPECIFIC GRAVITY 1.020 URINE PH 5.0 5.0 - 9.0 POC URINE LEUKOCYTES Negative Negative Wilder/uL POC URINE NITRITE Negative Negative POC URINE PROTEIN Negative Negative mg/dL POC URINE GLUCOSE Norm Negative, Norm mg/dL POC URINE KETONE Negative Negative mg/dL POC URINE UROBILINOGEN Norm Norm, 0.2 E.U./dL (mg/dL), 1 E.U./dL (mg/dL) POC URINE BILIRUBIN Negative Negative mg/dL POC URINE BLOOD INSTRUMENT Negative Negative Louie/uL POC URINE COLOR Yellow POC URINE CLARITY Clear Urine 01/20/2025 9:55 AM CDT Kami Gleason MD POINT OF CARE TESTING (MANUAL) Final Result * CULTURE, URINE (01/10/2025 1:45 PM CDT) Only the most recent of2 resultswithin the time period is included. [facility] CULTURE RESULTS No growth final 01/11/2025 5:23 PM CDT [facility] Culture URINE SPECIMEN OBTAINED BY CLEAN CATCH PROCEDURE / Unknown Non-Phlebotomy Collection / Unknown 01/10/2025 1:45 PM CDT 01/10/2025 1:45 PM CDT Kami Gleason MD MICROBIOLOGY - GENERAL ORDERAB LES Final Result [facility] [address] [place] [address], [place] * COLONOSCOPY (05/24/2020) us Brent Dickinson DO PROCEDURE/MINOR SURGICAL ORDERA BLES Final Result from Last 3 Months or Most Recently Relevant to Health Maintenance Insurance MEDICARE [facility] Care Teams Director Housekeeping Relationship Specialty Start Date End Date Fuentes Orellana MD [address] [address] PCP - General Family Medicine 07/06/15 Brent Dickinson DO [address] [address] Gastroenterology 06/27/16 Faviola Jiménez APRN, SIGN LANGUAGE INTERPRETER [address] [address] Nurse Practitioner Advanced Practice Nurse 07/22/16 Shawnee Mckinney MD [address] [facility] [address] [place] [address] Urologist Urology 06/07/19 Chicho Clayton MD 4921 [facility] [address] [place] [address] Oncology 06/13/19 Lai Lambert APRN, SIGN LANGUAGE INTERPRETER #2 [place] [address] Nurse Practitioner Advanced Practice Nurse 02/10/23 Kami Meneses MD #[address] [address] Consulting Physician Urology 06/16/23 Anette Bond MD #2 [place] [address] Consulting Physician Gastroenterology 12/25/22 Kay Gordon APRN, SIGN LANGUAGE INTERPRETER #2 [place] [address] Nurse Practitioner Advanced Practice Nurse 06/16/24 Kami Meneses MD #[address], [facility] [address] [place] [address] Consulting Physician Urology 08/19/24 Kami Meneses MD #[address], [facility] [address] [place] [address] Consulting Physician Urology 01/06/25
--- OUTSIDE RECORDS SUMMARY | 2025-02-04 11:43 | XMS_ITS | Encounter Summary ---
Author Organization [facility] Address [address] [place] [address] Phone Care Team Providers Care Zoogler Name Role Phone Fuentes Orellana MD Primary Care Provider Brent Dickinson DO Unavailable [phone] Faviola Jiménez NEEDLE PUNCH MACHINE OPERATOR, DIRECTOR TRANSPORTATION Unavailable Shawnee Mckinney MD Unavailable Chicho Clayton MD Unavailable Lai Lambert NEEDLE PUNCH MACHINE OPERATOR, DIRECTOR TRANSPORTATION Unavailable [phone] Kami Meneses MD Unavailable [phone] Anette Bond MD Unavailable [phone] Kay Gordon NEEDLE PUNCH MACHINE OPERATOR, DIRECTOR TRANSPORTATION Unavailable Kami Meneses MD Unavailable [phone] Kami Meneses MD Unavailable [phone] Encounter Details Date Type Department Care Team (Late st Contact Info) Description 12/16/2024 Telephone [facility] [address] [place] [address] Kami Meneses MD #[address] [address] Social History Tobacco Use Types Packs/Day Years [...] 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 Chicho Clayton at [place] for prostate. * Telephone Encounter - Kami Meneses MD - 12/16/2024 11:45 AM CDT Can you ask the patient who follows him for his prostate cancer? documented in this encounter Plan of Treatment Upcoming Encounters Date Type Department Care Team (Late st Contact Info) Description 03/10/2025 2:15 PM CDT Office Visit [facility] [address] [place] [address] Kami Meneses MD [address] [address] documented as of this encounter Visit Diagnoses Not on filedocumented in this encounter Care Teams Zoogler Relationship Specialty Start Date End Date Fuentes Orellana MD [address] [place] [address] PCP - General Family Medicine 07/06/15 Brent Dickinson DO [address] [place] [address] Gastroenterology 06/27/16 Faviola Jiménez APRN, DIRECTOR TRANSPORTATION [address] [place] [place] [address] Nurse Practitioner Advanced Practice Nurse 07/22/16 Shawnee Mckinney MD 4960 [facility] [address] [place] [address] Urologist Urology 06/07/19 Chicho Clayton MD 4921 [facility] [address] [place] [address] Oncology 06/13/19 Lai Lambert APRN, DIRECTOR TRANSPORTATION #2 [place] [address] Nurse Practitioner Advanced Practice Nurse 02/10/23 Kami Meneses MD #[address] [address] Consulting Physician Urology 06/16/23 Anette Bond MD #2 [place] [address] Consulting Physician Gastroenterology 12/25/22 Kay Gordon APRN, DIRECTOR TRANSPORTATION #2 [place] [address] Nurse Practitioner Advanced Practice Nurse 06/16/24 Kami Meneses MD #[address] [address] Consulting Physician Urology 08/19/24 Kami Meneses MD #[address] [address] Consulting Physician Urology 01/06/25 documented as of this encounter
--- NOTE | 2025-02-04 11:44 | ED.GENADULT ---
HPI - General Adult General Chief complaint: Upper Respiratory Infection Stated complaint: cough Time Seen by Provider: 02/04/25 11:43 Source: patient Mode of arrival: ambulatory Limitations: no limitations History of Present Illness HPI narrative: 74-year-old male patient presents to [facility] with complaints of cold symptoms for the last 4 days. Patient states he has had a runny nose, cough sneezing and low-grade fevers about 99. Patient states he has been taking some Tylenol which helped his help the fever stay under control and has been taking some Robitussin for his cough. Denies any chest pain or shortness of breath. Denies any abdominal pain, nausea, vomiting or diarrhea. Patient states he did take a COVID test yesterday and it was negative. Related Data Home Medications ?Medication ?Instructions ?Recorded ?Confirmed ?Last Taken ?Type nitroglycerin 0.3 mg sublingual 0.3 mg sublingual PRN PRN Chest 12/05/21 01/20/25 Unknown History tablet Pain ticagrelor 60 mg tablet (Brilinta) 60 mg PO BID 12/05/21 01/20/25 12/29/24 History aspirin 81 mg tablet,delayed 81 mg PO DAILY 12/06/21 01/20/25 03/14/22 09:00 History release (Adult Aspirin Regimen) chlorthalidone 25 mg tablet 25 mg PO DAILY 04/16/23 01/20/25 01/02/25 History rosuvastatin 40 mg tablet 40 mg PO DAILY 10/13/23 01/20/25 01/02/25 History telmisartan 80 mg tablet 80 mg PO DAILY 06/08/24 01/20/25 01/02/25 History amlodipine 5 mg tablet 5 mg PO DAILY 09/29/24 01/20/25 01/03/25 History metoprolol tartrate 25 mg tablet 25 mg PO Q12H 12/16/24 01/20/25 01/03/25 History vit B3 20 mg-B5 5 mg-B6 2 mg-B7 75 1 tablet PO DAILY 12/16/24 01/20/25 12/29/24 History fkw-iptih-V13-inosit-C chew tablet Allergies Allergy/AdvReac Type Severity Reaction Status Date / Time dapagliflozin (From [facility]) Allergy Severe Hallucinati Verified 02/04/25 11:47 ng metformin AdvReac Severe Diarrhea Verified 02/04/25 11:47 semaglutide (From Ozempic) AdvReac Intermediate Confusion Verified 02/04/25 11:47 Review of Systems Review of Systems: CONSTITUTIONAL: positive low-grade fever, denies chills, or sweats. EYES: Denies visual changes, redness, or discharge. ENT: positive rhinorrhea, congestion, denies sore throat, or otalgia. positive sneezing CARDIOVASCULAR: Denies chest pain, palpitations, or edema. RESPIRATORY: Positive cough or dyspnea. GASTROINTESTINAL: Denies abdominal pain, nausea, vomiting, or diarrhea. GENITOURINARY: Denies dysuria or hematuria. SKIN: Denies rash or itching. MUSCULOSKELETAL: Denies back pain, joint pain, or myalgia. NEUROLOGIC: Denies headache, numbness, or weakness. PSYCHIATRIC: Denies anxiety or depression. [facility] Past Medical History Medical History Hard of hearing reads lips Hypertension Anxiety SOB (shortness of breath) Hyponatremia Cerebrovascular disease Diabetic polyneuropathy Lumbar spine pain BMI 27.0-27.9,adult Chronic pain Spasmodic bladder Trochanteric bursitis, left hip Trochanteric bursitis, right hip Heart disease History of prostate cancer Arthritis History of blood clots Carpal tunnel syndrome on both sides Overweight BMI 26.0-26.9,adult Microscopic colitis Dysphagia BMI 26.0-26.9,adult BMI between 19-24,adult Right shoulder pain Left shoulder pain BMI 25.0-25.9,adult 1st MTP arthritis Depression High cholesterol Shortness of breath Wears glasses Light headedness BMI 25.0-25.9,adult GERD (gastroesophageal reflux disease) HLD (hyperlipidemia) HTN (hypertension) Collagenous colitis Adenomatous colon polyp Tendinitis of both rotator cuffs Groin discomfort CAD (coronary artery disease) Carotid stenosis, asymptomatic h/o intracranial cerebral stenosis, evaluated at [facility] 05/2019, thought not to be symptomatic cont med tx. Glaucoma Personal history of DVT (deep vein thrombosis) Stenosis of infrarenal abdominal aorta due to arteriosclerosis Says his aorta is mildly enlarged Gout (~08/2019) Prostate cancer Anemia Type 2 diabetes mellitus without complications Surgical History Surgical History H/O umbilical hernia repair 01/03/25; Dr Nunez; 6.[address] hernia patch Status post urinary system surgery AMS 800TM device placed 11/09/24 Dr Meneses (urologist [place] - same urology group as at [place]) Hx of endarterectomy H/O carotid endarterectomy (~10/2022) History of rotator cuff surgery History of angioplasty History of cataract surgery History of colonoscopy 2020 S/P arthroscopic surgery of left knee H/O rectal polypectomy H/O cystoscopy History of prostatectomy Had prostate cancer, status post prostatectomy and later radiation therapy. Has an implanted device to help with urinary incontinence. H/O cardiac catheterization H/O heart artery stent Family History Family History Father , of lung cancer age 83 Hypertension Lung cancer Sibling Hypertension Mother Family history of malignant neoplasm of breast in first degree relative Breast cancer of breast cancer age 37 Sibling No problems noted. Other Diabetes mellitus Family history of cardiovascular disease Family history of elevated blood lipids Family history of malignant neoplasm Social History Social History Social History: The patient has 2 sons and is . He does not have a durable power bankruptcy attorney. Wishes to be a full code. 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 Uses cane/assist device when out but not always at home. Smoking packs per day: 1 Smoking cigarettes per day: 20.0 Years smoked: 15 Smoking pack-years: 15.00 Smoking status: Unknown if ever smoked Tobacco type: cigarettes Second hand tobacco smoke exposure: No Smoking end date: 08/31/82 Alcohol intake: unknown Drinks per week: 14 Alcohol use details: 2-3 per day beer Substance use: never Substance use type: does not use Other substance usage details: no beer in over a week; no marijuana in 9 months Do You Feel Safe in your Home?: Yes Lack of Transportation: No Lack of Food: Never True Current Housing: I Have Housing Concerned About Future Housing: No Difficulty Paying Gas/Electric Bills: No Difficulty Paying for Meds: No Currently Unemployed: No Education: Trade/Vocational Certificate Difficulty w/ Childcare or Family Care: No Living arrangements: alone Occupation/Education: retired Additional occupation/education comments: 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 Gender identity (if verbalized by the patient): Male Spiritual care concerns: No Agree to blood products: Yes Comments At the time of my signature I agree with nursing past medical history, surgical, social, and family history. There is no relevant family history pertinent to the presenting complaint. Exam Narrative: GENERAL: Well-appearing, well-nourished, and in no acute distress. HEAD: Normocephalic, atraumatic. EYES: PERRLA and EOMI. ENT: Nares clear, no rhinorrhea or epistaxis. Mucous membranes moist. posterior pharynx with no erythema, tonsillar enlargement, exudates or lesions present. Bilateral TMs are clear no erythema or foreign bodies the canal. NECK: Supple. No lymphadenopathy CHEST: Clear to auscultation. No respiratory distress. HEART: Regular rate and rhythm. No murmur heard. Normal peripheral pulses. ABDOMEN: Soft, nontender, nondistended, normal active bowel sounds. EXTREMITIES: Normal range of motion. No edema. SKIN: Warm, dry, no rash. NEURO: No focal deficits. Alert and oriented x3. Course Course Level of Care: Express Care Visit Vital Signs Vital signs: Vital Signs Temperature 37.0 C 02/04/25 11:51 Pulse Rate 81 02/04/25 11:51 Respiratory Rate 16 02/04/25 11:51 Blood Pressure 128/46 L 02/04/25 11:51 Pulse Oximetry 96 02/04/25 11:51 Oxygen Delivery Room Air 02/04/25 11:51 Temperature 37.0 C 02/04/25 11:51 Pulse Rate 81 02/04/25 11:51 Respiratory Rate 16 02/04/25 11:51 Blood Pressure 128/46 L 02/04/25 11:51 Pulse Oximetry 96 02/04/25 11:51 Oxygen Delivery Room Air 02/04/25 11:51 Vital signs reviewed. Medical Decision Making MDM Narrative Medical decision making narrative: Offered to test patient today for influenza and COVID however patient states he just tested for COVID yesterday and does not wish to be tested today. Discussed with patient that he most likely has a virus and we do not use antibiotics to treat viruses. Discussed with him that I can not give him something to help with the coughing symptoms and I would highly recommend that he take an ucol-qpp-tltmisd antihistamine such as Zyrtec, Claritin or Cat to help the runny nose and sneezing symptoms. Discussed with him that this should go away in a few days but viruses can last up to 10 days. If patient continues to have fever past 5 days or develops worsening symptoms such as chest pain or shortness of breath he needs to be re-evaluated either here or with his primary doctor. Patient verbalized understanding denies any other questions or concerns at this time. Differential Diagnosis Differential Diagnosis: Differential diagnosis: Allergic rhinitis, chronic sinusitis, tonsillitis, acute sinusitis, infectious mononucleosis, seasonal influenza, pertussis, diphtheria, meningococcal disease, viral syndrome, viral bronchitis, RSV, COVID-19 Vital Signs Vital Signs: Vital Signs Temperature 37.0 C 02/04/25 11:51 Pulse Rate 81 02/04/25 11:51 Respiratory Rate 16 02/04/25 11:51 Blood Pressure 128/46 L 02/04/25 11:51 Pulse Oximetry 96 02/04/25 11:51 Oxygen Delivery Room Air 02/04/25 11:51 Temperature 37.0 C 02/04/25 11:51 Pulse Rate 81 02/04/25 11:51 Respiratory Rate 16 02/04/25 11:51 Blood Pressure 128/46 L 02/04/25 11:51 Pulse Oximetry 96 02/04/25 11:51 Oxygen Delivery Room Air 02/04/25 11:51 Critical Care Time Critical Care Time Critical Care Time: No Discharge Plan Discharge Clinical Impression: Viral URI with cough Patient Disposition: Home Condition: Stable Instructions: Antibiotic Form, Viral Syndrome (ED) Additional Instructions: Viral illness may last between 7-12days; antibiotic is NOT recommended at this time. Recommend antihistamine such as Benadryl at night time and Claritin/Zyrtec/Cat during the day Cough syrup may cause drowsiness; avoid driving or take it at night time. Use inhaler as needed for cough, wheezing, shortness of breath or chest tightness. Also, recommend symptomatic treatment includes: rest, fluids, and increase humidity of the air at home. Recommend Acetaminophen or nonsteroidal anti-inflammatory agents (NSAIDs) as directed in the bottle to reduce fever and/pain/headache. Avoid smoking/second-hand smoke. Limit visits to areas with large crowds. Please schedule a follow-up visit with your personal physician for further evaluation and treatment within 3-5days. Including recheck and discussion of your blood pressure. If your symptoms persist, change or worsen significantly before you can contact your personal physician then please, without delay, go to the emergency department for further evaluation. Patient Language: Armenian Prescriptions: New benzonatate 200 mg capsule 200 mg PO TID PRN (Reason: cough) 10 Days Qty: 30 0RF No Action nitroglycerin 0.3 mg tablet, sublingual 0.3 mg sublingual PRN PRN (Reason: Chest Pain) Brilinta 60 mg tablet 60 mg PO BID Patient Comments: HOLD 5 days prior to surgery chlorthalidone 25 mg tablet 25 mg PO DAILY telmisartan 80 mg tablet 80 mg PO DAILY rosuvastatin 40 mg tablet 40 mg PO DAILY Kerendia 10 mg tablet 10 mg PO DAILY Qty: 30 7RF aspirin [Adult Aspirin Regimen] 81 mg tablet,delayed release (DR/EC) 81 mg PO DAILY linagliptin 5 mg tablet 5 mg PO QAM Qty: 90 2RF (DME) Accu-Chek Aaliyah Plus test strp Strip See Rx Instructions .Route Qty: 400 1RF Rx Instructions: Check blood sugar 4 times daily (DME) lancets [E-Z Ject Lancets] 33 gauge misc See Rx Instructions .Route Qty: 400 12RF Rx Instructions: three times daily glimepiride 1 mg tablet 1 mg PO BID Qty: 180 1RF Rx Instructions: 1 mg before breakfast and 1 mg before supper Gvoke HypoPen 2-Pack 1 mg/0.2 mL auto-injector 1 mg subcut ONCE Qty: 0.4 0RF Rx Instructions: as a single dose; may repeat once after 15 minutes if no response amlodipine 5 mg tablet 5 mg PO DAILY F2-C1-B4-Q0-ywama-P11-inosit-C 20 mg-5 mg- 2 mg-75 mcg tablet,chewable 1 tablet PO DAILY metoprolol tartrate 25 mg Tablet 25 mg PO Q12H alprazolam 0.5 mg tablet 0.5 mg PO TID PRN (Reason: Anxiety) Qty: 20 0RF allopurinol 300 mg tablet 300 mg PO DAILY Qty: 90 1RF pantoprazole 40 mg tablet,delayed release (DR/EC) 40 mg PO DAILY Qty: 90 1RF Follow-up/Referrals: Fuentes Orellana MD [Primary Care Provider] -
--- OUTSIDE RECORDS SUMMARY | 2025-02-04 11:44 | XMS_ITS | Clinical Summary ---
Author Organization Unknown Care Team Providers Care Concert Pianist Name Role Phone PRABHJOT ESCOBAR, KIRK Unavailable Mikey RUSH SUPERVISOR SPRING UP, DAPHNE Unavailable Unavailpatricia PAGE OT, TAMIE Unavailable Unavailable MARCE PT, YANET Unavailable Unavailable VERONICA RN, ABI Unavailable Unavailable LOIS RITTERN, RICARDA Unavailable Unavailable Payers Payer Name Policy Type Policy Number Effective Date Expira tion Date MEDICARE.[facility] [id number] Problems Condition Name Condition Details Condition Category [...] 08-31 00:00: 00 ATHSCL HEART DISEASE OF [place] CORONARY ARTERY W/O ANG PCTRS Active 08-31 [...] SPECIFIED FUNCTIONAL IMPLANTS Active 08-31 00:00: 00 DETENTION (CURRENT) USE OF ASPIRIN Active 08-31 00:00: [...] 11-09 00:00: 00 01-10 00:00 :00 No [id number] PAIN 1 tablet DAILY 1 tablet DAILY (route: oral) Med Classific ation: Analgesic , Anti-infl ammatory or Antipyret ic sulfamethox azole 800 mg-trimetho prim 160 mg tablet 11-12 00:00: 00 11-19 23:59 :00 No [id number] PROPHYLATIC 1 tablet 2 TIMES DAILY 1 tablet 2 TIMES DAILY (route: oral) Med Classific ation: Anti-Infe ctive Agents metoprolol tartrate 25 mg tablet 11-03 00:00: 00 Yes [id number] HIGH BLOOD PRESSURE 1 tablet 2 TIMES DAILY 1 tablet 2 TIMES DAILY (route: oral) Med Classific ation: Cardiovas cular Therapy Agents rosuvastati n 40 mg tablet 11-02 00:00: 00 Yes [id number] CHOLESTEROL 1 tablet DAILY 1 tablet DAILY (route: oral) Med Classific ation: Cardiovas cular Therapy Agents Brilinta 60 mg tablet 11-12 00:00: 00 Yes [id number] BLOOD THINNER 1 tablet 2 TIMES DAILY 1 tablet 2 TIMES DAILY (route: oral) Med Classific ation: Hematolog ical Agents acetaminoph en 500 mg tablet 11-12 00:00: 00 Yes [id number] NEEDED FOR PAIN 1-5/10 ON A 1-10 SCALE OR FEVER GREATER THAN 100.1 2 tablet EVERY 6 HOURS 2 tablet EVERY 6 HOURS (route: oral) Med Classific ation: Analgesic , Anti-infl ammatory or Antipyret ic alendronate 70 mg tablet 11-12 00:00: 00 Yes [id number] OSTEOARTHRI TIS 1 tablet WEEKLY 1 tablet WEEKLY (route: oral) Med Classific ation: Endocrine allopurinol 300 mg tablet 11-12 00:00: 00 Yes [id number] GOUT 1 tablet DAILY 1 tablet DAILY (route: oral) Med Classific ation: Gout and Hyperuric emia Therapy alprazolam 0.25 mg tablet 11-12 00:00: 00 Yes [id number] NEEDED FOR ANXIETY 1 tablet 3 TIMES DAILY 1 tablet 3 TIMES DAILY (route: oral) Med Classific ation: Central Nervous System Agents amlodipine 5 mg tablet 11-12 00:00: 00 Yes [id number] HIGH BLOOD PRESSURE 1 tablet DAILY 1 tablet DAILY (route: oral) Med Classific ation: Cardiovas cular Therapy Agents cephalexin 500 mg capsule 11-12 00:00: 00 11-18 23:59 :00 No [id number] PROPHYLATIC 1 capsule 2 TIMES DAILY 1 capsule 2 TIMES DAILY (route: oral) Med Classific ation: Anti-Infe ctive Agents chlorthalid one 25 mg tablet 11-12 00:00: 00 Yes [id number] HIGH BLOOD PRESSURE 1 tablet DAILY 1 tablet DAILY (route: oral) Med Classific ation: Cardiovas cular Therapy Agents Kerendia 10 mg tablet 11-12 00:00: 00 Yes [id number] KIDNEY DISEASE 1 tablet DAILY 1 tablet DAILY (route: oral) Med Classific ation: Cardiovas cular Therapy Agents pantoprazol e 40 mg tablet,ingrid yed release 11-12 00:00: 00 Yes [id number] GASTROESOPH AGEAL REFULX DISEASE 1 tablet DAILY 1 tablet DAILY (route: oral) Med Classific ation: Gastroint estinal Therapy Agents telmisartan 80 mg tablet 11-12 00:00: 00 Yes [id number] HIGH BLOOD PRESSURE 1 tablet DAILY 1 tablet DAILY (route: oral) Med Classific ation: Cardiovas cular Therapy Agents Tradjenta 5 mg tablet 11-12 00:00: 00 Yes [id number] DIABETES 1 tablet DAILY 1 tablet DAILY (route: oral) Med Classific ation: Endocrine nitroglycer in 0.3 mg sublingual tablet 11-12 00:00: 00 Yes [id number] NEEDED FOR CHEST PAIN 1 tablet EVERY 5 MINUTES TIMES 3 1 tablet EVERY 5 MINUTES TIMES 3 (route: sublingual ) Med Classific ation: Cardiovas cular Therapy Agents glimepiride 1 mg tablet 12-13 00:00: 00 Yes [id number] DIABETES 1 mg 2 TIMES DAILY 1 mg 2 TIMES DAILY (route: oral) Alternate Route: BY MOUTH. Med Classific ation: Endocrine Gvoke 1 mg/0.2 mL subcutaneou s solution 12-13 00:00: 00 Yes [id number] LOW BLOOD SUGAR Per instruc tions NEEDED Per instructio ns NEEDED (route: subcutaneo us) Alternate Route: SUBCUTANE OUS. Med Classific ation: Endocrine phenazopyri dine 200 mg tablet 12-21 00:00: 00 Yes [id number] URINARY PAIN 200 mg 3 TIMES DAILY [...] SAVANNAH DUENAS RN TO OBSERVE AND ASSESS, PATTERN GENERATOR OPERATOR/SURFACE BOSS TO OBSERVE FOR RISK FOR FALLS AND INSTRUCT IN FALL PREVENTION, HOME SAFETY, MEDICATION MANAGEMENT, INFECTION PREVENTION, AND NUTRITION MANAGEMENT. RN/PATTERN GENERATOR OPERATOR/SURFACE BOSS NURSE MAY PERFORM O2 SATURATION LEVEL ON ADMISSION AND PRN FOR EVERY VISIT FOR RN TO ASSESS/PATTERN GENERATOR OPERATOR TO OBSERVE PATIENT, WITH NOTIFICATION TO THE PHYSICIAN IF SATURATION IS 90% IN THE ABSENCE OF MORE SPECIFIC PARAMETERS FROM THE PHYSICIAN. AGENCY MAY PERFORM A RESUMPTION OF CARE VISIT FOLLOWING ANY HOSPITAL ADMISSION. RN/PATTERN GENERATOR OPERATOR/SURFACE BOSS TO MONITOR CO-MORBID CONDITIONS LISTED ON THE PLAN OF CARE AND ANY NEW CONDITIONS THAT PRESENT THEMSELVES DURING THIS EPISODE TO IDENTIFY CHANGES AND INTERVENE TO MINIMIZE COMPLICATIONS. [code = RN TO OBSERVE, ASSESS, EVALUATE, AND DEVELOP AN INDIVIDUALIZED PLAN OF CARE. AGENCY MAY ACCEPT ORDERS FROM CONSULTING PHYSICIANS DR SAVANNAH DUENAS RN TO OBSERVE AND ASSESS, PATTERN GENERATOR OPERATOR/SURFACE BOSS TO OBSERVE FOR RISK FOR FALLS AND INSTRUCT IN FALL PREVENTION, HOME SAFETY, MEDICATION MANAGEMENT, INFECTION PREVENTION, AND NUTRITION MANAGEMENT. RN/PATTERN GENERATOR OPERATOR/SURFACE BOSS NURSE MAY PERFORM O2 SATURATION LEVEL ON ADMISSION AND PRN FOR EVERY VISIT FOR RN TO ASSESS/PATTERN GENERATOR OPERATOR TO OBSERVE PATIENT, WITH NOTIFICATION TO THE PHYSICIAN IF SATURATION IS 90% IN THE ABSENCE OF MORE SPECIFIC PARAMETERS FROM THE PHYSICIAN. AGENCY MAY PERFORM A RESUMPTION OF CARE VISIT FOLLOWING ANY HOSPITAL ADMISSION. RN/PATTERN GENERATOR OPERATOR/SURFACE BOSS TO MONITOR CO-MORBID CONDITIONS LISTED ON THE PLAN OF CARE AND ANY NEW CONDITIONS THAT PRESENT THEMSELVES DURING THIS EPISODE TO IDENTIFY CHANGES AND INTERVENE TO MINIMIZE COMPLICATIONS.] Future Scheduled Test MEDICATION MANAGEMENT; RN/PATTERN GENERATOR OPERATOR/SURFACE BOSS TO REVIEW MEDICATIONS FOR INTERACTIONS, EFFECTIVENESS OF DRUG THERAPY, AND SIGNS/SYMPTOMS OF ADVERSE REACTIONS. MAY INSTRUCT AND REINFORCE MEDICATION TEACHING RELATED TO THE USE OF MEDICATIONS, DOSAGE, FREQUENCY, PURPOSE, SIDE EFFECTS, AND TO REPORT COMPLICATIONS. [code = MEDICATION MANAGEMENT; RN/PATTERN GENERATOR OPERATOR/SURFACE BOSS TO REVIEW MEDICATIONS FOR INTERACTIONS, EFFECTIVENESS OF DRUG THERAPY, AND SIGNS/SYMPTOMS OF ADVERSE REACTIONS. MAY INSTRUCT AND REINFORCE MEDICATION TEACHING RELATED TO THE USE OF MEDICATIONS, DOSAGE, FREQUENCY, PURPOSE, SIDE EFFECTS, AND TO REPORT COMPLICATIONS.] Future Scheduled Test ANTITHROMB OTIC MANAGEMENT; RN TO ASSESS AND TEACH, PATTERN GENERATOR OPERATOR/SURFACE BOSS TO OBSERVE/TEACH/MONITOR EFFECTIVENESS OF ANTITHROMBOTIC THERAPY. RN/PATTERN GENERATOR OPERATOR/SURFACE BOSS TO INSTRUCT ON SIGNS AND SYMPTOMS OF BLEEDING/ADVERSE REACTIONS TO REPORT TO PHYSICIAN. PATIENT PRESCRIBED BRILINTA [code = ANTITHROMBOTIC MANAGEMENT; RN TO ASSESS AND TEACH, PATTERN GENERATOR OPERATOR/SURFACE BOSS TO OBSERVE/TEACH/MONITOR EFFECTIVENESS OF ANTITHROMBOTIC THERAPY. RN/PATTERN GENERATOR OPERATOR/SURFACE BOSS TO INSTRUCT ON SIGNS AND SYMPTOMS OF BLEEDING/ADVERSE REACTIONS TO REPORT TO PHYSICIAN. PATIENT PRESCRIBED BRILINTA] Future Scheduled Test RISK FOR H OSPITALIZATION; RN TO ASSESS/TEACH, SURFACE BOSS/PATTERN GENERATOR OPERATOR TO OBSERVE/TEACH PATIENT/CAREGIVER ON RISK FOR HOSPITALIZATION/EMERGENCY ROOM VISITS, TEACH SIGNS AND SYMPTOMS THAT PUT PATIENT AT RISK, WHEN TO NOTIFY NURSE/PHYSICIAN OF COMPLICATIONS/DECLINE, AND WHEN TO CALL 911. [code = RISK FOR HOSPITALIZATION; RN TO ASSESS/TEACH, SURFACE BOSS/PATTERN GENERATOR OPERATOR TO OBSERVE/TEACH PATIENT/CAREGIVER ON RISK FOR HOSPITALIZATION/EMERGENCY ROOM VISITS, TEACH SIGNS AND SYMPTOMS THAT PUT PATIENT AT RISK, WHEN TO NOTIFY NURSE/PHYSICIAN OF COMPLICATIONS/DECLINE, AND WHEN TO CALL 911.] Future Scheduled Test CARDIOVASC ULAR SYSTEM; RN TO ASSESS/TEACH, PATTERN GENERATOR OPERATOR/SURFACE BOSS TO OBSERVE/TEACH RELATED TO ALTERED CARDIOVASCULAR STATUS TO MINIMIZE COMPLICATIONS AND REDUCE HOSPITALIZATION. [code = CARDIOVASCULAR SYSTEM; RN TO ASSESS/TEACH, PATTERN GENERATOR OPERATOR/SURFACE BOSS TO OBSERVE/TEACH RELATED TO ALTERED CARDIOVASCULAR STATUS TO MINIMIZE COMPLICATIONS AND REDUCE HOSPITALIZATION.] Future Scheduled Test HYPERTENSI ON MANAGEMENT; RN TO ASSESS AND TEACH, PATTERN GENERATOR OPERATOR/SURFACE BOSS TO OBSERVE AND TEACH WARNING SIGNS AND SYMPTOMS TO AVOID HOSPITALIZATION. [code = HYPERTENSION MANAGEMENT; RN TO ASSESS AND TEACH, PATTERN GENERATOR OPERATOR/SURFACE BOSS TO OBSERVE AND TEACH WARNING SIGNS AND SYMPTOMS TO AVOID HOSPITALIZATION.] Future Scheduled Test RN/PATTERN GENERATOR OPERATOR/SURFACE BOSS TO PERFORM/TEACH INCISION CARE TO AREA: UPPER ABDOMINAL AREA CLOSED WITH GLUE PATIENT MAY SHOWER. LEAVE OPEN TO AIR. DO NOT APPLY LOTION TO GLUE. [code = RN/PATTERN GENERATOR OPERATOR/SURFACE BOSS TO PERFORM/TEACH INCISION CARE TO AREA: UPPER ABDOMINAL AREA CLOSED WITH GLUE PATIENT MAY SHOWER. LEAVE OPEN TO AIR. DO NOT APPLY LOTION TO GLUE.] Future Scheduled Test WOUND MOLE CULAR TESTING PROTOCOL UP TO 3 PRN RN/PATTERN GENERATOR OPERATOR VISITS MAY BE PERFORMED FOR S/S OF WOUND INFECTION/DETERIORATION/STAGNATION. RN TO ASSESS, PATTERN GENERATOR OPERATOR/SURFACE BOSS TO OBSERVE AND INITIATE PROTOCOL. RN/PATTERN GENERATOR OPERATOR/SURFACE BOSS TO INSTRUCT PATIENT AND/OR CAREGIVER ON S/S OF WOUND INFECTION/DETERIORATION/STAGNATION TO REPORT TO NURSE IF NEW OR WORSENING SYMPTOMS. RN/PATTERN GENERATOR OPERATOR/SURFACE BOSS TO OBTAIN MOLECULAR WOUND TESTING VIA SWAB COLLECTION PER POLICY. [id number] NOTIFY PROVIDER OF RESULTS AND OBTAIN FURTHER ORDERS. [code = WOUND MOLECULAR TESTING PROTOCOL UP TO 3 PRN RN/PATTERN GENERATOR OPERATOR VISITS MAY BE PERFORMED FOR S/S OF WOUND INFECTION/DETERIORATION/STAGNATION. RN TO ASSESS, PATTERN GENERATOR OPERATOR/SURFACE BOSS TO OBSERVE AND INITIATE PROTOCOL. RN/PATTERN GENERATOR OPERATOR/SURFACE BOSS TO INSTRUCT PATIENT AND/OR CAREGIVER ON S/S OF WOUND INFECTION/DETERIORATION/STAGNATION TO REPORT TO NURSE IF NEW OR WORSENING SYMPTOMS. RN/PATTERN GENERATOR OPERATOR/SURFACE BOSS TO OBTAIN MOLECULAR WOUND TESTING VIA SWAB COLLECTION PER POLICY. [id number] NOTIFY PROVIDER OF RESULTS AND OBTAIN FURTHER ORDERS.] Future Scheduled Test DIABETES M ANAGEMENT; RN TO ASSESS AND TEACH, SURFACE BOSS/PATTERN GENERATOR OPERATOR TO OBSERVE AND TEACH INSTRUCTIONS OF DIABETIC CARE TO INCLUDE: DIET DIABETIC SKIN CARE, SIGNS AND SYMPTOMS OF HYPO/HYPERGLYCEMIA, PROPER ADMINISTRATION OF DIABETIC MEDICATION. RN/SURFACE BOSS/PATTERN GENERATOR OPERATOR TO INSTRUCT ON DIABETIC FOOT CARE AND MONITOR FOR SKIN LESIONS ON LOWER EXTREMITIES. BLOOD GLUCOSE TESTING PRN RN TO ASSESS AND TEACH, SURFACE BOSS/PATTERN GENERATOR OPERATOR TO OBSERVE AND TEACH PATIENT/CAREGIVER ABILITY TO PERFORM AND RECORD BLOOD GLUCOSE TESTING ORDERED AND TO REPORT ABNORMAL FINDINGS TO PHYSICIAN. RN/SURFACE BOSS/PATTERN GENERATOR OPERATOR MAY PERFORM BLOOD GLUCOSE TEST NEEDED. RN/SURFACE BOSS/PATTERN GENERATOR OPERATOR TO REPORT TO PHYSICIAN BLOOD GLUCOSE READINGS GREATER THAN 300 OR LESS THAN 70 RN/SURFACE BOSS/PATTERN GENERATOR OPERATOR TO INSTRUCT PATIENT ON IMPORTANCE OF HGBA1C MONITORING, KIDNEY FUNCTION TEST, EYE AND FOOT EXAMS. [code = DIABETES MANAGEMENT; RN TO ASSESS AND TEACH, SURFACE BOSS/PATTERN GENERATOR OPERATOR TO OBSERVE AND TEACH INSTRUCTIONS OF DIABETIC CARE TO INCLUDE: DIET DIABETIC SKIN CARE, SIGNS AND SYMPTOMS OF HYPO/HYPERGLYCEMIA, PROPER ADMINISTRATION OF DIABETIC MEDICATION. RN/SURFACE BOSS/PATTERN GENERATOR OPERATOR TO INSTRUCT ON DIABETIC FOOT CARE AND MONITOR FOR SKIN LESIONS ON LOWER EXTREMITIES. BLOOD GLUCOSE TESTING PRN RN TO ASSESS AND TEACH, SURFACE BOSS/PATTERN GENERATOR OPERATOR TO OBSERVE AND TEACH PATIENT/CAREGIVER ABILITY TO PERFORM AND RECORD BLOOD GLUCOSE TESTING ORDERED AND TO REPORT ABNORMAL FINDINGS TO PHYSICIAN. RN/SURFACE BOSS/PATTERN GENERATOR OPERATOR MAY PERFORM BLOOD GLUCOSE TEST NEEDED. RN/SURFACE BOSS/PATTERN GENERATOR OPERATOR TO REPORT TO PHYSICIAN BLOOD GLUCOSE READINGS GREATER THAN 300 OR LESS THAN 70 RN/SURFACE BOSS/PATTERN GENERATOR OPERATOR TO INSTRUCT PATIENT ON IMPORTANCE OF HGBA1C MONITORING, KIDNEY FUNCTION TEST, EYE AND FOOT EXAMS.] Future Scheduled Test GENITOURIN KEZIA MANAGEMENT; RN TO ASSESS AND TEACH, PATTERN GENERATOR OPERATOR/SURFACE BOSS TO OBSERVE AND TEACH RELATED TO ALTERED GENITOURINARY STATUS TO MINIMIZE COMPLICATIONS AND REDUCE HOSPITALIZATION. [code = GENITOURINARY MANAGEMENT; RN TO ASSESS AND TEACH, PATTERN GENERATOR OPERATOR/SURFACE BOSS TO OBSERVE AND TEACH RELATED TO ALTERED GENITOURINARY STATUS TO MINIMIZE COMPLICATIONS AND REDUCE HOSPITALIZATION.] Future Scheduled Test URINARY CU LTURE AND SENSITIVITY PROTOCOL UP TO 2 PRN RN/PATTERN GENERATOR OPERATOR/SURFACE BOSS VISITS MAY BE PERFORMED FOR S/S OF UTI. RN TO ASSESS, PATTERN GENERATOR OPERATOR/SURFACE BOSS TO OBSERVE INITIATION OF UTI PROTOCOL. RN/SURFACE BOSS/PATTERN GENERATOR OPERATOR TO INSTRUCT PATIENT AND/OR CAREGIVER ON S/S OF UTI TO REPORT TO RN/PATTERN GENERATOR OPERATOR/SURFACE BOSS IF NEW OR WORSENING SYMPTOMS. DRINK PLENTY OF WATER THROUGHOUT THE DAY TO MAINTAIN HYDRATION (UNLESS CONTRAINDICATED.) URINATE WHEN THE URGE IS FELT, DO NOT WAIT. WASH GENITALS DAILY. WIPE FROM FRONT TO BACK AFTER HAVING A BOWEL MOVEMENT. RN/SURFACE BOSS/PATTERN GENERATOR OPERATOR TO OBTAIN UA WITH C/S VIA CLEAN CATCH URINE AND IF UNABLE TO OBTAIN MAY PERFORM AN IN AND OUT CATH. IF PATIENT HAS INDWELLING CATHETER MAY OBTAIN FROM SAMPLING PORT. NOTIFY PROVIDER OF RESULTS AND OBTAIN FURTHER ORDERS. [code = URINARY CULTURE AND SENSITIVITY PROTOCOL UP TO 2 PRN RN/PATTERN GENERATOR OPERATOR/SURFACE BOSS VISITS MAY BE PERFORMED FOR S/S OF UTI. RN TO ASSESS, PATTERN GENERATOR OPERATOR/SURFACE BOSS TO OBSERVE INITIATION OF UTI PROTOCOL. RN/SURFACE BOSS/PATTERN GENERATOR OPERATOR TO INSTRUCT PATIENT AND/OR CAREGIVER ON S/S OF UTI TO REPORT TO RN/PATTERN GENERATOR OPERATOR/SURFACE BOSS IF NEW OR WORSENING SYMPTOMS. DRINK PLENTY OF WATER THROUGHOUT THE DAY TO MAINTAIN HYDRATION (UNLESS CONTRAINDICATED.) URINATE WHEN THE URGE IS FELT, DO NOT WAIT. WASH GENITALS DAILY. WIPE FROM FRONT TO BACK AFTER HAVING A BOWEL MOVEMENT. RN/SURFACE BOSS/PATTERN GENERATOR OPERATOR TO OBTAIN UA WITH C/S VIA CLEAN CATCH URINE AND IF UNABLE TO OBTAIN MAY PERFORM AN IN AND OUT CATH. IF PATIENT HAS INDWELLING CATHETER MAY OBTAIN FROM SAMPLING PORT. NOTIFY PROVIDER OF RESULTS AND OBTAIN FURTHER ORDERS.] Future Scheduled Test URINARY IN CONTINENCE MANAGEMENT; RN TO ASSESS AND TEACH, PATTERN GENERATOR OPERATOR/LVNTO OBSERVE AND TEACH MANAGEMENT OF URINARY INCONTINENCE. TEACH/INSTRUCT ON PREVENTING INFECTION AND SKIN BREAKDOWN. RN/PATTERN GENERATOR OPERATOR/SURFACE BOSS MAY INSTRUCT IN BLADDER TRAINING PROGRAM INDICATED. [code = URINARY INCONTINENCE MANAGEMENT; RN TO ASSESS AND TEACH, PATTERN GENERATOR OPERATOR/LVNTO OBSERVE AND TEACH MANAGEMENT OF URINARY INCONTINENCE. TEACH/INSTRUCT ON PREVENTING INFECTION AND SKIN BREAKDOWN. RN/PATTERN GENERATOR OPERATOR/SURFACE BOSS MAY INSTRUCT IN BLADDER TRAINING PROGRAM INDICATED.] Future Scheduled Test URINARY MO LECULAR TESTING PROTOCOL UP TO 2 PRN RN/PATTERN GENERATOR OPERATOR/SURFACE BOSS VISITS MAY BE PERFORMED FOR S/S OF UTI. RN TO ASSESS, PATTERN GENERATOR OPERATOR/SURFACE BOSS TO OBSERVE INITIATION OF UTI PROTOCOL. RN/SURFACE BOSS/PATTERN GENERATOR OPERATOR TO INSTRUCT PATIENT AND/OR CAREGIVER ON S/S OF UTI TO REPORT TO RN/SURFACE BOSS/PATTERN GENERATOR OPERATOR IF NEW OR WORSENING SYMPTOMS. DRINK PLENTY OF WATER THROUGHOUT THE DAY TO MAINTAIN HYDRATION (UNLESS CONTRAINDICATED.) URINATE WHEN THE URGE IS FELT, DO NOT WAIT. WASH GENITALS DAILY. WIPE FROM FRONT TO BACK AFTER HAVING A BOWEL MOVEMENT. RN/SURFACE BOSS/PATTERN GENERATOR OPERATOR TO OBTAIN MOLECULAR URINE TESTING BY OPTION 1 OR OPTION 2 (OPTION 1) RN/SURFACE BOSS/PATTERN GENERATOR OPERATOR TO OBTAIN U/A WITH REFLEX TO UTI PANEL (MOLECULAR) VIA CLEAN CATCH URINE AND IF UNABLE TO OBTAIN MAY PERFORM AN IN AND OUT CATH. IF PATIENT HAS INDWELLING CATHETER MAY OBTAIN FROM SAMPLING PORT. (OPTION 2) RN/SURFACE BOSS/PATTERN GENERATOR OPERATOR TO OBTAIN UTI PANEL (MOLECULAR) VIA SWAB COLLECTION METHOD FROM ADULT BRIEF/DIAPER OR PAD IF PATIENT IS INCONTINENT. NOTIFY PROVIDER OF RESULTS AND OBTAIN FURTHER ORDERS. [code = URINARY MOLECULAR TESTING PROTOCOL UP TO 2 PRN RN/PATTERN GENERATOR OPERATOR/SURFACE BOSS VISITS MAY BE PERFORMED FOR S/S OF UTI. RN TO ASSESS, PATTERN GENERATOR OPERATOR/SURFACE BOSS TO OBSERVE INITIATION OF UTI PROTOCOL. RN/SURFACE BOSS/PATTERN GENERATOR OPERATOR TO INSTRUCT PATIENT AND/OR CAREGIVER ON S/S OF UTI TO REPORT TO RN/SURFACE BOSS/PATTERN GENERATOR OPERATOR IF NEW OR WORSENING SYMPTOMS. DRINK PLENTY OF WATER THROUGHOUT THE DAY TO MAINTAIN HYDRATION (UNLESS CONTRAINDICATED.) URINATE WHEN THE URGE IS FELT, DO NOT WAIT. WASH GENITALS DAILY. WIPE FROM FRONT TO BACK AFTER HAVING A BOWEL MOVEMENT. RN/SURFACE BOSS/PATTERN GENERATOR OPERATOR TO OBTAIN MOLECULAR URINE TESTING BY OPTION 1 OR OPTION 2 (OPTION 1) RN/SURFACE BOSS/PATTERN GENERATOR OPERATOR TO OBTAIN U/A WITH REFLEX TO UTI PANEL (MOLECULAR) VIA CLEAN CATCH URINE AND IF UNABLE TO OBTAIN MAY PERFORM AN IN AND OUT CATH. IF PATIENT HAS INDWELLING CATHETER MAY OBTAIN FROM SAMPLING PORT. (OPTION 2) RN/SURFACE BOSS/PATTERN GENERATOR OPERATOR TO OBTAIN UTI PANEL (MOLECULAR) VIA SWAB COLLECTION METHOD FROM ADULT BRIEF/DIAPER OR PAD IF PATIENT IS INCONTINENT. NOTIFY PROVIDER OF RESULTS AND OBTAIN FURTHER ORDERS.] Future Scheduled Test PRN VISITS ; NUMBER OF RN/PATTERN GENERATOR OPERATOR/SURFACE BOSS VISITS: 1 RN/PATTERN GENERATOR OPERATOR/SURFACE BOSS TO PERFORM: SURGICAL INCISION MANAGEMENT FOR THE FOLLOWING REASONS: COMPLICATIONS [code = PRN VISITS; NUMBER OF RN/PATTERN GENERATOR OPERATOR/SURFACE BOSS VISITS: 1 RN/PATTERN GENERATOR OPERATOR/SURFACE BOSS TO PERFORM: SURGICAL INCISION MANAGEMENT FOR THE FOLLOWING REASONS: COMPLICATIONS ] Future Scheduled Test FALL REDUC TION MANAGEMENT; RN TO ASSESS AND OBSERVE, PATTERN GENERATOR OPERATOR/SURFACE BOSS TO OBSERVE FALL RISK FACTORS AND EDUCATE PATIENT/CAREGIVER ON STRATEGIES TO MINIMIZE THE RISK OF FALLING. [code = FALL REDUCTION MANAGEMENT; RN TO ASSESS AND OBSERVE, PATTERN GENERATOR OPERATOR/SURFACE BOSS TO OBSERVE FALL RISK FACTORS AND EDUCATE PATIENT/CAREGIVER ON STRATEGIES TO MINIMIZE THE RISK OF FALLING.] Future Scheduled Test CANCER MAN AGEMENT; RN TO ASSESS AND TEACH, SURFACE BOSS/PATTERN GENERATOR OPERATOR TO OBSERVE AND TEACH AND PROVIDE EDUCATION ON CANCER. [code = CANCER MANAGEMENT; RN TO ASSESS AND TEACH, SURFACE BOSS/PATTERN GENERATOR OPERATOR TO OBSERVE AND TEACH AND PROVIDE EDUCATION ON CANCER.] Future Scheduled Test PAIN MANAG EMENT; RN TO ASSESS AND TEACH, SURFACE BOSS/PATTERN GENERATOR OPERATOR TO OBSERVE AND TEACH AND PROVIDE EDUCATION ON PAIN MANAGEMENT TECHNIQUES. [code = PAIN MANAGEMENT; RN TO ASSESS AND TEACH, SURFACE BOSS/PATTERN GENERATOR OPERATOR TO OBSERVE AND TEACH AND PROVIDE EDUCATION [...] End Date/Time Encounter Type Admission Type Attending [facility] Care Department Encounter ID Discharge Date Discharge Status Discharge Condition Discharge Reason Percent Goals Met 2025-01-13 00:00:00 2025-03-13 00:00:00 Outpatient [facility] [id number] [id number]
--- OUTSIDE RECORDS SUMMARY | 2025-02-04 11:44 | XMS_ITS | Clinical Summary ---
Author Organization Unknown Care Team Providers Care Technology And Engineering Teacher Name Role Phone PRABHJOT ESCOBAR, KIRK Unavailable Mikey RUSH MULTI NEEDLE MACHINE OPERATOR, DAPHNE Unavailable Unavailpatricia PAGE OT, TAMIE Unavailable Unavailable MARCE PT, YANET Unavailable Unavailable VERONICA RN, ABI Unavailable Unavailable LOIS RITTERN, RICARDA Unavailable Unavailable Payers Payer Name Policy Type Policy Number Effective Date Expira tion Date MEDICARE[facility] [id number] Problems Condition Name Condition Details Condition Category [...] 08-31 00:00: 00 ATHSCL HEART DISEASE OF [place] CORONARY ARTERY W/O ANG PCTRS Active 08-31 [...] 11-09 00:00: 00 01-10 00:00 :00 No [id number] PAIN 1 tablet DAILY 1 tablet DAILY (route: oral) Med Classific ation: Analgesic , Anti-infl ammatory or Antipyret ic sulfamethox azole 800 mg-trimetho prim 160 mg tablet 11-12 00:00: 00 11-19 23:59 :00 No [id number] PROPHYLATIC 1 tablet 2 TIMES DAILY 1 tablet 2 TIMES DAILY (route: oral) Med Classific ation: Anti-Infe ctive Agents metoprolol tartrate 25 mg tablet 11-03 00:00: 00 Yes [id number] HIGH BLOOD PRESSURE 1 tablet 2 TIMES DAILY 1 tablet 2 TIMES DAILY (route: oral) Med Classific ation: Cardiovas cular Therapy Agents rosuvastati n 40 mg tablet 11-02 00:00: 00 Yes [id number] CHOLESTEROL 1 tablet DAILY 1 tablet DAILY (route: oral) Med Classific ation: Cardiovas cular Therapy Agents Brilinta 60 mg tablet 11-12 00:00: 00 Yes [id number] BLOOD THINNER 1 tablet 2 TIMES DAILY 1 tablet 2 TIMES DAILY (route: oral) Med Classific ation: Hematolog ical Agents acetaminoph en 500 mg tablet 11-12 00:00: 00 Yes [id number] NEEDED FOR PAIN 1-5/10 ON A 1-10 SCALE OR FEVER GREATER THAN 100.1 2 tablet EVERY 6 HOURS 2 tablet EVERY 6 HOURS (route: oral) Med Classific ation: Analgesic , Anti-infl ammatory or Antipyret ic alendronate 70 mg tablet 11-12 00:00: 00 Yes [id number] OSTEOARTHRI TIS 1 tablet WEEKLY 1 tablet WEEKLY (route: oral) Med Classific ation: Endocrine allopurinol 300 mg tablet 11-12 00:00: 00 Yes [id number] GOUT 1 tablet DAILY 1 tablet DAILY (route: oral) Med Classific ation: Gout and Hyperuric emia Therapy alprazolam 0.25 mg tablet 11-12 00:00: 00 Yes [id number] NEEDED FOR ANXIETY 1 tablet 3 TIMES DAILY 1 tablet 3 TIMES DAILY (route: oral) Med Classific ation: Central Nervous System Agents amlodipine 5 mg tablet 11-12 00:00: 00 Yes [id number] HIGH BLOOD PRESSURE 1 tablet DAILY 1 tablet DAILY (route: oral) Med Classific ation: Cardiovas cular Therapy Agents cephalexin 500 mg capsule 11-12 00:00: 00 11-18 23:59 :00 No [id number] PROPHYLATIC 1 capsule 2 TIMES DAILY 1 capsule 2 TIMES DAILY (route: oral) Med Classific ation: Anti-Infe ctive Agents chlorthalid one 25 mg tablet 11-12 00:00: 00 Yes [id number] HIGH BLOOD PRESSURE 1 tablet DAILY 1 tablet DAILY (route: oral) Med Classific ation: Cardiovas cular Therapy Agents Kerendia 10 mg tablet 11-12 00:00: 00 Yes [id number] KIDNEY DISEASE 1 tablet DAILY 1 tablet DAILY (route: oral) Med Classific ation: Cardiovas cular Therapy Agents pantoprazol e 40 mg tablet,ingrid yed release 11-12 00:00: 00 Yes [id number] GASTROESOPH AGEAL REFULX DISEASE 1 tablet DAILY 1 tablet DAILY (route: oral) Med Classific ation: Gastroint estinal Therapy Agents telmisartan 80 mg tablet 11-12 00:00: 00 Yes [id number] HIGH BLOOD PRESSURE 1 tablet DAILY 1 tablet DAILY (route: oral) Med Classific ation: Cardiovas cular Therapy Agents Tradjenta 5 mg tablet 11-12 00:00: 00 Yes [id number] DIABETES 1 tablet DAILY 1 tablet DAILY (route: oral) Med Classific ation: Endocrine nitroglycer in 0.3 mg sublingual tablet 11-12 00:00: 00 Yes [id number] NEEDED FOR CHEST PAIN 1 tablet EVERY 5 MINUTES TIMES 3 1 tablet EVERY 5 MINUTES TIMES 3 (route: sublingual ) Med Classific ation: Cardiovas cular Therapy Agents glimepiride 1 mg tablet 12-13 00:00: 00 Yes [id number] DIABETES 1 mg 2 TIMES DAILY 1 mg 2 TIMES DAILY (route: oral) Alternate Route: BY MOUTH. Med Classific ation: Endocrine Gvoke 1 mg/0.2 mL subcutaneou s solution 12-13 00:00: 00 Yes [id number] LOW BLOOD SUGAR Per instruc tions NEEDED Per instructio ns NEEDED (route: subcutaneo us) Alternate Route: SUBCUTANE OUS. Med Classific ation: Endocrine phenazopyri dine 200 mg tablet 12-21 00:00: 00 Yes [id number] URINARY PAIN 200 mg 3 TIMES DAILY [...] SAVANNAH DUENAS RN TO OBSERVE AND ASSESS, INDUSTRIAL HIRE SALES ASSISTANT/RESEARCH & ANALYTICS MANAGER TO OBSERVE FOR RISK FOR FALLS AND INSTRUCT IN FALL PREVENTION, HOME SAFETY, MEDICATION MANAGEMENT, INFECTION PREVENTION, AND NUTRITION MANAGEMENT. RN/INDUSTRIAL HIRE SALES ASSISTANT/RESEARCH & ANALYTICS MANAGER NURSE MAY PERFORM O2 SATURATION LEVEL ON ADMISSION AND PRN FOR EVERY VISIT FOR RN TO ASSESS/INDUSTRIAL HIRE SALES ASSISTANT TO OBSERVE PATIENT, WITH NOTIFICATION TO THE PHYSICIAN IF SATURATION IS 90% IN THE ABSENCE OF MORE SPECIFIC PARAMETERS FROM THE PHYSICIAN. AGENCY MAY PERFORM A RESUMPTION OF CARE VISIT FOLLOWING ANY HOSPITAL ADMISSION. RN/INDUSTRIAL HIRE SALES ASSISTANT/RESEARCH & ANALYTICS MANAGER TO MONITOR CO-MORBID CONDITIONS LISTED ON THE PLAN OF CARE AND ANY NEW CONDITIONS THAT PRESENT THEMSELVES DURING THIS EPISODE TO IDENTIFY CHANGES AND INTERVENE TO MINIMIZE COMPLICATIONS. [code = RN TO OBSERVE, ASSESS, EVALUATE, AND DEVELOP AN INDIVIDUALIZED PLAN OF CARE. AGENCY MAY ACCEPT ORDERS FROM CONSULTING PHYSICIANS DR SAVANNAH DUENAS RN TO OBSERVE AND ASSESS, INDUSTRIAL HIRE SALES ASSISTANT/RESEARCH & ANALYTICS MANAGER TO OBSERVE FOR RISK FOR FALLS AND INSTRUCT IN FALL PREVENTION, HOME SAFETY, MEDICATION MANAGEMENT, INFECTION PREVENTION, AND NUTRITION MANAGEMENT. RN/INDUSTRIAL HIRE SALES ASSISTANT/RESEARCH & ANALYTICS MANAGER NURSE MAY PERFORM O2 SATURATION LEVEL ON ADMISSION AND PRN FOR EVERY VISIT FOR RN TO ASSESS/INDUSTRIAL HIRE SALES ASSISTANT TO OBSERVE PATIENT, WITH NOTIFICATION TO THE PHYSICIAN IF SATURATION IS 90% IN THE ABSENCE OF MORE SPECIFIC PARAMETERS FROM THE PHYSICIAN. AGENCY MAY PERFORM A RESUMPTION OF CARE VISIT FOLLOWING ANY HOSPITAL ADMISSION. RN/INDUSTRIAL HIRE SALES ASSISTANT/RESEARCH & ANALYTICS MANAGER TO MONITOR CO-MORBID CONDITIONS LISTED ON THE PLAN OF CARE AND ANY NEW CONDITIONS THAT PRESENT THEMSELVES DURING THIS EPISODE TO IDENTIFY CHANGES AND INTERVENE TO MINIMIZE COMPLICATIONS.] Future Scheduled Test MEDICATION MANAGEMENT; RN/INDUSTRIAL HIRE SALES ASSISTANT/RESEARCH & ANALYTICS MANAGER TO REVIEW MEDICATIONS FOR INTERACTIONS, EFFECTIVENESS OF DRUG THERAPY, AND SIGNS/SYMPTOMS OF ADVERSE REACTIONS. MAY INSTRUCT AND REINFORCE MEDICATION TEACHING RELATED TO THE USE OF MEDICATIONS, DOSAGE, FREQUENCY, PURPOSE, SIDE EFFECTS, AND TO REPORT COMPLICATIONS. [code = MEDICATION MANAGEMENT; RN/INDUSTRIAL HIRE SALES ASSISTANT/RESEARCH & ANALYTICS MANAGER TO REVIEW MEDICATIONS FOR INTERACTIONS, EFFECTIVENESS OF DRUG THERAPY, AND SIGNS/SYMPTOMS OF ADVERSE REACTIONS. MAY INSTRUCT AND REINFORCE MEDICATION TEACHING RELATED TO THE USE OF MEDICATIONS, DOSAGE, FREQUENCY, PURPOSE, SIDE EFFECTS, AND TO REPORT COMPLICATIONS.] Future Scheduled Test ANTITHROMB OTIC MANAGEMENT; RN TO ASSESS AND TEACH, INDUSTRIAL HIRE SALES ASSISTANT/RESEARCH & ANALYTICS MANAGER TO OBSERVE/TEACH/MONITOR EFFECTIVENESS OF ANTITHROMBOTIC THERAPY. RN/INDUSTRIAL HIRE SALES ASSISTANT/RESEARCH & ANALYTICS MANAGER TO INSTRUCT ON SIGNS AND SYMPTOMS OF BLEEDING/ADVERSE REACTIONS TO REPORT TO PHYSICIAN. PATIENT PRESCRIBED BRILINTA [code = ANTITHROMBOTIC MANAGEMENT; RN TO ASSESS AND TEACH, INDUSTRIAL HIRE SALES ASSISTANT/RESEARCH & ANALYTICS MANAGER TO OBSERVE/TEACH/MONITOR EFFECTIVENESS OF ANTITHROMBOTIC THERAPY. RN/INDUSTRIAL HIRE SALES ASSISTANT/RESEARCH & ANALYTICS MANAGER TO INSTRUCT ON SIGNS AND SYMPTOMS OF BLEEDING/ADVERSE REACTIONS TO REPORT TO PHYSICIAN. PATIENT PRESCRIBED BRILINTA] Future Scheduled Test RISK FOR H OSPITALIZATION; RN TO ASSESS/TEACH, RESEARCH & ANALYTICS MANAGER/INDUSTRIAL HIRE SALES ASSISTANT TO OBSERVE/TEACH PATIENT/CAREGIVER ON RISK FOR HOSPITALIZATION/EMERGENCY ROOM VISITS, TEACH SIGNS AND SYMPTOMS THAT PUT PATIENT AT RISK, WHEN TO NOTIFY NURSE/PHYSICIAN OF COMPLICATIONS/DECLINE, AND WHEN TO CALL 911. [code = RISK FOR HOSPITALIZATION; RN TO ASSESS/TEACH, RESEARCH & ANALYTICS MANAGER/INDUSTRIAL HIRE SALES ASSISTANT TO OBSERVE/TEACH PATIENT/CAREGIVER ON RISK FOR HOSPITALIZATION/EMERGENCY ROOM VISITS, TEACH SIGNS AND SYMPTOMS THAT PUT PATIENT AT RISK, WHEN TO NOTIFY NURSE/PHYSICIAN OF COMPLICATIONS/DECLINE, AND WHEN TO CALL 911.] Future Scheduled Test CARDIOVASC ULAR SYSTEM; RN TO ASSESS/TEACH, INDUSTRIAL HIRE SALES ASSISTANT/RESEARCH & ANALYTICS MANAGER TO OBSERVE/TEACH RELATED TO ALTERED CARDIOVASCULAR STATUS TO MINIMIZE COMPLICATIONS AND REDUCE HOSPITALIZATION. [code = CARDIOVASCULAR SYSTEM; RN TO ASSESS/TEACH, INDUSTRIAL HIRE SALES ASSISTANT/RESEARCH & ANALYTICS MANAGER TO OBSERVE/TEACH RELATED TO ALTERED CARDIOVASCULAR STATUS TO MINIMIZE COMPLICATIONS AND REDUCE HOSPITALIZATION.] Future Scheduled Test HYPERTENSI ON MANAGEMENT; RN TO ASSESS AND TEACH, INDUSTRIAL HIRE SALES ASSISTANT/RESEARCH & ANALYTICS MANAGER TO OBSERVE AND TEACH WARNING SIGNS AND SYMPTOMS TO AVOID HOSPITALIZATION. [code = HYPERTENSION MANAGEMENT; RN TO ASSESS AND TEACH, INDUSTRIAL HIRE SALES ASSISTANT/RESEARCH & ANALYTICS MANAGER TO OBSERVE AND TEACH WARNING SIGNS AND SYMPTOMS TO AVOID HOSPITALIZATION.] Future Scheduled Test RN/INDUSTRIAL HIRE SALES ASSISTANT/RESEARCH & ANALYTICS MANAGER TO PERFORM/TEACH INCISION CARE TO AREA: UPPER ABDOMINAL AREA CLOSED WITH GLUE PATIENT MAY SHOWER. LEAVE OPEN TO AIR. DO NOT APPLY LOTION TO GLUE. [code = RN/INDUSTRIAL HIRE SALES ASSISTANT/RESEARCH & ANALYTICS MANAGER TO PERFORM/TEACH INCISION CARE TO AREA: UPPER ABDOMINAL AREA CLOSED WITH GLUE PATIENT MAY SHOWER. LEAVE OPEN TO AIR. DO NOT APPLY LOTION TO GLUE.] Future Scheduled Test WOUND MOLE CULAR TESTING PROTOCOL UP TO 3 PRN RN/INDUSTRIAL HIRE SALES ASSISTANT VISITS MAY BE PERFORMED FOR S/S OF WOUND INFECTION/DETERIORATION/STAGNATION. RN TO ASSESS, INDUSTRIAL HIRE SALES ASSISTANT/RESEARCH & ANALYTICS MANAGER TO OBSERVE AND INITIATE PROTOCOL. RN/INDUSTRIAL HIRE SALES ASSISTANT/RESEARCH & ANALYTICS MANAGER TO INSTRUCT PATIENT AND/OR CAREGIVER ON S/S OF WOUND INFECTION/DETERIORATION/STAGNATION TO REPORT TO NURSE IF NEW OR WORSENING SYMPTOMS. RN/INDUSTRIAL HIRE SALES ASSISTANT/RESEARCH & ANALYTICS MANAGER TO OBTAIN MOLECULAR WOUND TESTING VIA SWAB COLLECTION PER POLICY. [id number] NOTIFY PROVIDER OF RESULTS AND OBTAIN FURTHER ORDERS. [code = WOUND MOLECULAR TESTING PROTOCOL UP TO 3 PRN RN/INDUSTRIAL HIRE SALES ASSISTANT VISITS MAY BE PERFORMED FOR S/S OF WOUND INFECTION/DETERIORATION/STAGNATION. RN TO ASSESS, INDUSTRIAL HIRE SALES ASSISTANT/RESEARCH & ANALYTICS MANAGER TO OBSERVE AND INITIATE PROTOCOL. RN/INDUSTRIAL HIRE SALES ASSISTANT/RESEARCH & ANALYTICS MANAGER TO INSTRUCT PATIENT AND/OR CAREGIVER ON S/S OF WOUND INFECTION/DETERIORATION/STAGNATION TO REPORT TO NURSE IF NEW OR WORSENING SYMPTOMS. RN/INDUSTRIAL HIRE SALES ASSISTANT/RESEARCH & ANALYTICS MANAGER TO OBTAIN MOLECULAR WOUND TESTING VIA SWAB COLLECTION PER POLICY. [id number] NOTIFY PROVIDER OF RESULTS AND OBTAIN FURTHER ORDERS.] Future Scheduled Test DIABETES M ANAGEMENT; RN TO ASSESS AND TEACH, RESEARCH & ANALYTICS MANAGER/INDUSTRIAL HIRE SALES ASSISTANT TO OBSERVE AND TEACH INSTRUCTIONS OF DIABETIC CARE TO INCLUDE: DIET DIABETIC SKIN CARE, SIGNS AND SYMPTOMS OF HYPO/HYPERGLYCEMIA, PROPER ADMINISTRATION OF DIABETIC MEDICATION. RN/RESEARCH & ANALYTICS MANAGER/INDUSTRIAL HIRE SALES ASSISTANT TO INSTRUCT ON DIABETIC FOOT CARE AND MONITOR FOR SKIN LESIONS ON LOWER EXTREMITIES. BLOOD GLUCOSE TESTING PRN RN TO ASSESS AND TEACH, RESEARCH & ANALYTICS MANAGER/INDUSTRIAL HIRE SALES ASSISTANT TO OBSERVE AND TEACH PATIENT/CAREGIVER ABILITY TO PERFORM AND RECORD BLOOD GLUCOSE TESTING ORDERED AND TO REPORT ABNORMAL FINDINGS TO PHYSICIAN. RN/RESEARCH & ANALYTICS MANAGER/INDUSTRIAL HIRE SALES ASSISTANT MAY PERFORM BLOOD GLUCOSE TEST NEEDED. RN/RESEARCH & ANALYTICS MANAGER/INDUSTRIAL HIRE SALES ASSISTANT TO REPORT TO PHYSICIAN BLOOD GLUCOSE READINGS GREATER THAN 300 OR LESS THAN 70 RN/RESEARCH & ANALYTICS MANAGER/INDUSTRIAL HIRE SALES ASSISTANT TO INSTRUCT PATIENT ON IMPORTANCE OF HGBA1C MONITORING, KIDNEY FUNCTION TEST, EYE AND FOOT EXAMS. [code = DIABETES MANAGEMENT; RN TO ASSESS AND TEACH, RESEARCH & ANALYTICS MANAGER/INDUSTRIAL HIRE SALES ASSISTANT TO OBSERVE AND TEACH INSTRUCTIONS OF DIABETIC CARE TO INCLUDE: DIET DIABETIC SKIN CARE, SIGNS AND SYMPTOMS OF HYPO/HYPERGLYCEMIA, PROPER ADMINISTRATION OF DIABETIC MEDICATION. RN/RESEARCH & ANALYTICS MANAGER/INDUSTRIAL HIRE SALES ASSISTANT TO INSTRUCT ON DIABETIC FOOT CARE AND MONITOR FOR SKIN LESIONS ON LOWER EXTREMITIES. BLOOD GLUCOSE TESTING PRN RN TO ASSESS AND TEACH, RESEARCH & ANALYTICS MANAGER/INDUSTRIAL HIRE SALES ASSISTANT TO OBSERVE AND TEACH PATIENT/CAREGIVER ABILITY TO PERFORM AND RECORD BLOOD GLUCOSE TESTING ORDERED AND TO REPORT ABNORMAL FINDINGS TO PHYSICIAN. RN/RESEARCH & ANALYTICS MANAGER/INDUSTRIAL HIRE SALES ASSISTANT MAY PERFORM BLOOD GLUCOSE TEST NEEDED. RN/RESEARCH & ANALYTICS MANAGER/INDUSTRIAL HIRE SALES ASSISTANT TO REPORT TO PHYSICIAN BLOOD GLUCOSE READINGS GREATER THAN 300 OR LESS THAN 70 RN/RESEARCH & ANALYTICS MANAGER/INDUSTRIAL HIRE SALES ASSISTANT TO INSTRUCT PATIENT ON IMPORTANCE OF HGBA1C MONITORING, KIDNEY FUNCTION TEST, EYE AND FOOT EXAMS.] Future Scheduled Test GENITOURIN KEZIA MANAGEMENT; RN TO ASSESS AND TEACH, INDUSTRIAL HIRE SALES ASSISTANT/RESEARCH & ANALYTICS MANAGER TO OBSERVE AND TEACH RELATED TO ALTERED GENITOURINARY STATUS TO MINIMIZE COMPLICATIONS AND REDUCE HOSPITALIZATION. [code = GENITOURINARY MANAGEMENT; RN TO ASSESS AND TEACH, INDUSTRIAL HIRE SALES ASSISTANT/RESEARCH & ANALYTICS MANAGER TO OBSERVE AND TEACH RELATED TO ALTERED GENITOURINARY STATUS TO MINIMIZE COMPLICATIONS AND REDUCE HOSPITALIZATION.] Future Scheduled Test URINARY CU LTURE AND SENSITIVITY PROTOCOL UP TO 2 PRN RN/INDUSTRIAL HIRE SALES ASSISTANT/RESEARCH & ANALYTICS MANAGER VISITS MAY BE PERFORMED FOR S/S OF UTI. RN TO ASSESS, INDUSTRIAL HIRE SALES ASSISTANT/RESEARCH & ANALYTICS MANAGER TO OBSERVE INITIATION OF UTI PROTOCOL. RN/RESEARCH & ANALYTICS MANAGER/INDUSTRIAL HIRE SALES ASSISTANT TO INSTRUCT PATIENT AND/OR CAREGIVER ON S/S OF UTI TO REPORT TO RN/INDUSTRIAL HIRE SALES ASSISTANT/RESEARCH & ANALYTICS MANAGER IF NEW OR WORSENING SYMPTOMS. DRINK PLENTY OF WATER THROUGHOUT THE DAY TO MAINTAIN HYDRATION (UNLESS CONTRAINDICATED.) URINATE WHEN THE URGE IS FELT, DO NOT WAIT. WASH GENITALS DAILY. WIPE FROM FRONT TO BACK AFTER HAVING A BOWEL MOVEMENT. RN/RESEARCH & ANALYTICS MANAGER/INDUSTRIAL HIRE SALES ASSISTANT TO OBTAIN UA WITH C/S VIA CLEAN CATCH URINE AND IF UNABLE TO OBTAIN MAY PERFORM AN IN AND OUT CATH. IF PATIENT HAS INDWELLING CATHETER MAY OBTAIN FROM SAMPLING PORT. NOTIFY PROVIDER OF RESULTS AND OBTAIN FURTHER ORDERS. [code = URINARY CULTURE AND SENSITIVITY PROTOCOL UP TO 2 PRN RN/INDUSTRIAL HIRE SALES ASSISTANT/RESEARCH & ANALYTICS MANAGER VISITS MAY BE PERFORMED FOR S/S OF UTI. RN TO ASSESS, INDUSTRIAL HIRE SALES ASSISTANT/RESEARCH & ANALYTICS MANAGER TO OBSERVE INITIATION OF UTI PROTOCOL. RN/RESEARCH & ANALYTICS MANAGER/INDUSTRIAL HIRE SALES ASSISTANT TO INSTRUCT PATIENT AND/OR CAREGIVER ON S/S OF UTI TO REPORT TO RN/INDUSTRIAL HIRE SALES ASSISTANT/RESEARCH & ANALYTICS MANAGER IF NEW OR WORSENING SYMPTOMS. DRINK PLENTY OF WATER THROUGHOUT THE DAY TO MAINTAIN HYDRATION (UNLESS CONTRAINDICATED.) URINATE WHEN THE URGE IS FELT, DO NOT WAIT. WASH GENITALS DAILY. WIPE FROM FRONT TO BACK AFTER HAVING A BOWEL MOVEMENT. RN/RESEARCH & ANALYTICS MANAGER/INDUSTRIAL HIRE SALES ASSISTANT TO OBTAIN UA WITH C/S VIA CLEAN CATCH URINE AND IF UNABLE TO OBTAIN MAY PERFORM AN IN AND OUT CATH. IF PATIENT HAS INDWELLING CATHETER MAY OBTAIN FROM SAMPLING PORT. NOTIFY PROVIDER OF RESULTS AND OBTAIN FURTHER ORDERS.] Future Scheduled Test URINARY IN CONTINENCE MANAGEMENT; RN TO ASSESS AND TEACH, INDUSTRIAL HIRE SALES ASSISTANT/LVNTO OBSERVE AND TEACH MANAGEMENT OF URINARY INCONTINENCE. TEACH/INSTRUCT ON PREVENTING INFECTION AND SKIN BREAKDOWN. RN/INDUSTRIAL HIRE SALES ASSISTANT/RESEARCH & ANALYTICS MANAGER MAY INSTRUCT IN BLADDER TRAINING PROGRAM INDICATED. [code = URINARY INCONTINENCE MANAGEMENT; RN TO ASSESS AND TEACH, INDUSTRIAL HIRE SALES ASSISTANT/LVNTO OBSERVE AND TEACH MANAGEMENT OF URINARY INCONTINENCE. TEACH/INSTRUCT ON PREVENTING INFECTION AND SKIN BREAKDOWN. RN/INDUSTRIAL HIRE SALES ASSISTANT/RESEARCH & ANALYTICS MANAGER MAY INSTRUCT IN BLADDER TRAINING PROGRAM INDICATED.] Future Scheduled Test URINARY MO LECULAR TESTING PROTOCOL UP TO 2 PRN RN/INDUSTRIAL HIRE SALES ASSISTANT/RESEARCH & ANALYTICS MANAGER VISITS MAY BE PERFORMED FOR S/S OF UTI. RN TO ASSESS, INDUSTRIAL HIRE SALES ASSISTANT/RESEARCH & ANALYTICS MANAGER TO OBSERVE INITIATION OF UTI PROTOCOL. RN/RESEARCH & ANALYTICS MANAGER/INDUSTRIAL HIRE SALES ASSISTANT TO INSTRUCT PATIENT AND/OR CAREGIVER ON S/S OF UTI TO REPORT TO RN/RESEARCH & ANALYTICS MANAGER/INDUSTRIAL HIRE SALES ASSISTANT IF NEW OR WORSENING SYMPTOMS. DRINK PLENTY OF WATER THROUGHOUT THE DAY TO MAINTAIN HYDRATION (UNLESS CONTRAINDICATED.) URINATE WHEN THE URGE IS FELT, DO NOT WAIT. WASH GENITALS DAILY. WIPE FROM FRONT TO BACK AFTER HAVING A BOWEL MOVEMENT. RN/RESEARCH & ANALYTICS MANAGER/INDUSTRIAL HIRE SALES ASSISTANT TO OBTAIN MOLECULAR URINE TESTING BY OPTION 1 OR OPTION 2 (OPTION 1) RN/RESEARCH & ANALYTICS MANAGER/INDUSTRIAL HIRE SALES ASSISTANT TO OBTAIN U/A WITH REFLEX TO UTI PANEL (MOLECULAR) VIA CLEAN CATCH URINE AND IF UNABLE TO OBTAIN MAY PERFORM AN IN AND OUT CATH. IF PATIENT HAS INDWELLING CATHETER MAY OBTAIN FROM SAMPLING PORT. (OPTION 2) RN/RESEARCH & ANALYTICS MANAGER/INDUSTRIAL HIRE SALES ASSISTANT TO OBTAIN UTI PANEL (MOLECULAR) VIA SWAB COLLECTION METHOD FROM ADULT BRIEF/DIAPER OR PAD IF PATIENT IS INCONTINENT. NOTIFY PROVIDER OF RESULTS AND OBTAIN FURTHER ORDERS. [code = URINARY MOLECULAR TESTING PROTOCOL UP TO 2 PRN RN/INDUSTRIAL HIRE SALES ASSISTANT/RESEARCH & ANALYTICS MANAGER VISITS MAY BE PERFORMED FOR S/S OF UTI. RN TO ASSESS, INDUSTRIAL HIRE SALES ASSISTANT/RESEARCH & ANALYTICS MANAGER TO OBSERVE INITIATION OF UTI PROTOCOL. RN/RESEARCH & ANALYTICS MANAGER/INDUSTRIAL HIRE SALES ASSISTANT TO INSTRUCT PATIENT AND/OR CAREGIVER ON S/S OF UTI TO REPORT TO RN/RESEARCH & ANALYTICS MANAGER/INDUSTRIAL HIRE SALES ASSISTANT IF NEW OR WORSENING SYMPTOMS. DRINK PLENTY OF WATER THROUGHOUT THE DAY TO MAINTAIN HYDRATION (UNLESS CONTRAINDICATED.) URINATE WHEN THE URGE IS FELT, DO NOT WAIT. WASH GENITALS DAILY. WIPE FROM FRONT TO BACK AFTER HAVING A BOWEL MOVEMENT. RN/RESEARCH & ANALYTICS MANAGER/INDUSTRIAL HIRE SALES ASSISTANT TO OBTAIN MOLECULAR URINE TESTING BY OPTION 1 OR OPTION 2 (OPTION 1) RN/RESEARCH & ANALYTICS MANAGER/INDUSTRIAL HIRE SALES ASSISTANT TO OBTAIN U/A WITH REFLEX TO UTI PANEL (MOLECULAR) VIA CLEAN CATCH URINE AND IF UNABLE TO OBTAIN MAY PERFORM AN IN AND OUT CATH. IF PATIENT HAS INDWELLING CATHETER MAY OBTAIN FROM SAMPLING PORT. (OPTION 2) RN/RESEARCH & ANALYTICS MANAGER/INDUSTRIAL HIRE SALES ASSISTANT TO OBTAIN UTI PANEL (MOLECULAR) VIA SWAB COLLECTION METHOD FROM ADULT BRIEF/DIAPER OR PAD IF PATIENT IS INCONTINENT. NOTIFY PROVIDER OF RESULTS AND OBTAIN FURTHER ORDERS.] Future Scheduled Test PRN VISITS ; NUMBER OF RN/INDUSTRIAL HIRE SALES ASSISTANT/RESEARCH & ANALYTICS MANAGER VISITS: 1 RN/INDUSTRIAL HIRE SALES ASSISTANT/RESEARCH & ANALYTICS MANAGER TO PERFORM: SURGICAL INCISION MANAGEMENT FOR THE FOLLOWING REASONS: COMPLICATIONS [code = PRN VISITS; NUMBER OF RN/INDUSTRIAL HIRE SALES ASSISTANT/RESEARCH & ANALYTICS MANAGER VISITS: 1 RN/INDUSTRIAL HIRE SALES ASSISTANT/RESEARCH & ANALYTICS MANAGER TO PERFORM: SURGICAL INCISION MANAGEMENT FOR THE FOLLOWING REASONS: COMPLICATIONS ] Future Scheduled Test FALL REDUC TION MANAGEMENT; RN TO ASSESS AND OBSERVE, INDUSTRIAL HIRE SALES ASSISTANT/RESEARCH & ANALYTICS MANAGER TO OBSERVE FALL RISK FACTORS AND EDUCATE PATIENT/CAREGIVER ON STRATEGIES TO MINIMIZE THE RISK OF FALLING. [code = FALL REDUCTION MANAGEMENT; RN TO ASSESS AND OBSERVE, INDUSTRIAL HIRE SALES ASSISTANT/RESEARCH & ANALYTICS MANAGER TO OBSERVE FALL RISK FACTORS AND EDUCATE PATIENT/CAREGIVER ON STRATEGIES TO MINIMIZE THE RISK OF FALLING.] Future Scheduled Test CANCER MAN AGEMENT; RN TO ASSESS AND TEACH, RESEARCH & ANALYTICS MANAGER/INDUSTRIAL HIRE SALES ASSISTANT TO OBSERVE AND TEACH AND PROVIDE EDUCATION ON CANCER. [code = CANCER MANAGEMENT; RN TO ASSESS AND TEACH, RESEARCH & ANALYTICS MANAGER/INDUSTRIAL HIRE SALES ASSISTANT TO OBSERVE AND TEACH AND PROVIDE EDUCATION ON CANCER.] Future Scheduled Test PAIN MANAG EMENT; RN TO ASSESS AND TEACH, RESEARCH & ANALYTICS MANAGER/INDUSTRIAL HIRE SALES ASSISTANT TO OBSERVE AND TEACH AND PROVIDE EDUCATION ON PAIN MANAGEMENT TECHNIQUES. [code = PAIN MANAGEMENT; RN TO ASSESS AND TEACH, RESEARCH & ANALYTICS MANAGER/INDUSTRIAL HIRE SALES ASSISTANT TO OBSERVE AND TEACH AND PROVIDE [...] End Date/Time Encounter Type Admission Type Attending [facility] Care Department Encounter ID Discharge Date Discharge Status Discharge Condition Discharge Reason Percent Goals Met 2025-01-13 00:00:00 2025-03-13 00:00:00 Outpatient [facility] [id number] 30.00
[2025-02-04 11:51] VITALS: BP 128/46; PULSE 81; RESP 16; TEMP 37; O2SAT 96
== END 2025-02-04 12:07 | disposition home or self-care (01) ==
PROVIDERS: Emergency Provider Nurse Practitioner Family; PCP Family Medicine
DX: J06.9 Acute upper respiratory infection, unspecified (principal); R05.9 Cough, unspecified; I10 Essential (primary) hypertension; I25.10 Atherosclerotic heart disease of native coronary artery without angina pectoris; E11.42 Type 2 diabetes mellitus with diabetic polyneuropathy; E78.00 Pure hypercholesterolemia, unspecified; M10.9 Gout, unspecified; K21.9 Gastro-esophageal reflux disease without esophagitis; Z85.46 Personal history of malignant neoplasm of prostate; Z87.891 Personal history of nicotine dependence; Z79.82 Long term (current) use of aspirin
CPT/HCPCS: 99213; G0463

== ENCOUNTER 2025-02-08 13:08 | Outpatient (CLI) | payer MEDICARE, SELFPAY ==
--- NOTE | ~2025-02-08 | XR_ITS ---
XR chest 2V 02/08/2025 13:23 Indication: Acute bronchitis Procedure: 2 view chest Comparison: Comparison to multiple prior studies sequentially, with oldest reviewed study dated 07/31. Findings: Asymmetric enlargement of the left pulmonary artery consistent with pulmonary hypertension. Heart size normal. No focal air space disease, pulmonary edema, pleural effusion or suspected pneumo thorax. No acute osseous abnormality. Impression: 1: No acute cardiopulmonary disease. Reviewed, dictated and finalized at location B. Impression: 1: No acute cardiopulmonary disease.
--- OUTSIDE RECORDS SUMMARY | 2025-02-08 15:18 | XMS_ITS | Encounter Summary ---
Author Organization [facility] Address [address] [place] [address] Phone Care Team Providers Care Malt House Supervisor Name Role Phone Fuentes Orellana MD Primary Care Provider Brent Dickinson DO Unavailable [phone] Faviola Jiménez CREATIVE SERVICES DIRECTOR, VISUAL MERCHANDISING MANAGER Unavailable Shawnee Mckinney MD Unavailable Chicho Clayton MD Unavailable Lai Lambert CREATIVE SERVICES DIRECTOR, VISUAL MERCHANDISING MANAGER Unavailable Kami Meneses MD Unavailable [phone] Anette Bond MD Unavailable [phone] Kay Gordon CREATIVE SERVICES DIRECTOR, VISUAL MERCHANDISING MANAGER Unavailable Kami Meneses MD Unavailable [phone] Kami Meneses MD Unavailable Reason for Visit * Reason Comments Medication Refill Encounter Details Date Type Department Care Team (Late st Contact Info) Description 03/25/2021 Refill [facility] - Gastroenterology - [place] [address] [place] [address] Ingrid Mccloud Ashley, PAC [address] [place] [address] Medication Refill Social History Tobacco Use Types [...] 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 difficile Rule-Out 04/10/2021 04/10/20212020 12:16 AM CDT documented as of this encounter Care Teams Malt House Supervisor Relationship Specialty Start Date End Date Fuentes Orellana MD [address] [facility] [place] [address] PCP - General Family Medicine 07/06/15 Brent Dickinson DO [address] [facility] [place] [address] Gastroenterology 06/27/16 Faviola Jiménez APRN, VISUAL MERCHANDISING MANAGER [address] [place] [address] Nurse Practitioner Advanced Practice Nurse 07/22/16 Shawnee Mckinney MD [address] [facility] [address] [place] [address] Urologist Urology 06/07/19 Chicho Clayton MD [address] [facility] [address] [place] [address] Oncology 06/13/19 Lai Lambert APRN, VISUAL MERCHANDISING MANAGER [address] [place] [address] Nurse Practitioner Advanced Practice Nurse 02/10/23 Kami Meneses MD #[address] [address] Consulting Physician Urology 06/16/23 Anette Bond MD [address] [place] [address] Consulting Physician Gastroenterology 12/25/22 Kay Gordon APRN, VISUAL MERCHANDISING MANAGER [address] [place] [address] Nurse Practitioner Advanced Practice Nurse 06/16/24 Kami Meneses MD [address] [address] Consulting Physician Urology 08/19/24 Kami Meneses MD [address] [address] Consulting Physician Urology 01/06/25 documented as of this encounter
--- OUTSIDE RECORDS SUMMARY | 2025-02-08 15:18 | XMS_ITS | Encounter Summary ---
Author Organization [facility] Address [address] [place] [address] Phone Care Team Providers Care Taper/Finisher Name Role Phone Fuentes Orellana MD Primary Care Provider [phone] Brent Dickinson DO Unavailable [phone] Faviola Jiménez GRADER TENDER, PRODUCT TRANSFER PUMPER Unavailable Shawnee Mckinney MD Unavailable Chicho Clayton MD Unavailable Lai Lambert GRADER TENDER, PRODUCT TRANSFER PUMPER Unavailable Kami Meneses MD Unavailable [phone] Anette Bond MD Unavailable [phone] Kay Gordon GRADER TENDER, PRODUCT TRANSFER PUMPER Unavailable Kami Meneses MD Unavailable [phone] Kami Meneses MD Unavailable [phone] Reason for Visit * Reason Comments Medication Refill Encounter Details Date Type Department Care Team (Late st Contact Info) Description 10/15/2021 Refill [facility] Medical Group - Gastroenterology - [place] [address] [place] [address] Ingrid Mccloud Ashley, PAC [address] [place] [address] Medication Refill Social History Tobacco Use Types [...] Job 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 Date 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 L DRIVER documented in this encounter Plan of Treatment Upcoming Encounters Date Type Department Care Team (Late st Contact Info) Description 03/10/2025 2:15 PM CDT Office Visit [facility] [address] [place] [address] Kami Meneses MD #[address] [address] documented as of this encounter Visit Diagnoses Not on filedocumented in this encounter Care Teams Taper/Finisher Relationship Specialty Start Date End Date Fuentes Orellana MD [address] [place] [address] PCP - General Family Medicine 07/06/15 Brent Dickinson DO [address] [address] Gastroenterology 06/27/16 Faviola Jiménez APRN, PRODUCT TRANSFER PUMPER [address] [facility] [place] [address] Nurse Practitioner Advanced Practice Nurse 07/22/16 Shawnee Mckinney MD [address] [facility] [address] [place] [address] Urologist Urology 06/07/19 Chicho Clayton MD [address] [facility] [address] [place] [address] Oncology 06/13/19 Lai Lambert APRN, PRODUCT TRANSFER PUMPER [address] [place] [address] Nurse Practitioner Advanced Practice Nurse 02/10/23 Kami Meneses MD #[address] [address] Consulting Physician Urology 06/16/23 Anette Bond MD [address] [place] [address] Consulting Physician Gastroenterology 12/25/22 Kay Gordon APRN, PRODUCT TRANSFER PUMPER [address] [place] [address] Nurse Practitioner Advanced Practice Nurse 06/16/24 Kami Meneses MD #[address] [place] [address] Consulting Physician Urology 08/19/24 Kami Meneses MD [address], [facility] [address] [place] [address] Consulting Physician Urology 01/06/25 documented as of this encounter
--- OUTSIDE RECORDS SUMMARY | 2025-02-08 15:18 | XMS_ITS | Encounter Summary ---
Author Organization [facility] Address [address] [place] [address] Phone Care Team Providers Care Research Electrician Name Role Phone Fuentes Orellana MD Primary Care Provider [phone] Brent Dickinson DO Unavailable [phone] Faviola Jiménez HOOP MAKER, ORDERING BOX OPERATOR Unavailable Shawnee Mckinney MD Unavailable Chicho Clayton MD Unavailable Lai Lambert HOOP MAKER, ORDERING BOX OPERATOR Unavailable [phone] Kami Meneses MD Unavailable [phone] Anette Bond MD Unavailable [phone] Kay Gordon HOOP MAKER, ORDERING BOX OPERATOR Unavailable Kami Meneses MD Unavailable [phone] Kami Meneses MD Unavailable [phone] Encounter Details Date Type Department Care Team (Late st Contact Info) Description 08/22/2024 Telephone [facility] [address] [place] [address] Kami Meneses MD [address], [facility] [address] [place] [address] Social History Tobacco Use Types Packs/Day Years [...] Job 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 Otto message. NITY TEACHER * Telephone Encounter - Kami Meneses MD [...] This needs to be done at [facility] by vt. He will need a urine culture 14 days prior to surgery. Hibiclens shower the night before morning of surgery, vancomycin and gentamicin for antibiotics NITY TEACHER NITY TEACHER documented in this encounter Plan of Treatment Upcoming Encounters Date Type Department Care Team (Late st Contact Info) Description 03/10/2025 2:15 PM CDT Office Visit [facility] UROLOGY [address] [place] [address] Kami Meneses MD #[address] [address] documented as of this encounter Visit Diagnoses Not on filedocumented in this encounter Care Teams Research Electrician Relationship Specialty Start Date End Date Fuentes Orellana MD [address] [place] [address] PCP - General Family Medicine 07/06/15 Brent Dickinson DO [address] [address] Gastroenterology 06/27/16 Faviola Jiménez, HOOP MAKER, ORDERING BOX OPERATOR [address] [place] [address] Nurse Practitioner Advanced Practice Nurse 07/22/16 Shawnee Mckinney MD [address] [facility] [address] [place] [address] Urologist Urology 06/07/19 Chicho Clayton MD [address] [facility] 7 [place] [address] Oncology 06/13/19 Lai Lambert APRN, ORDERING BOX OPERATOR [address] [place] [address] Nurse Practitioner Advanced Practice Nurse 02/10/23 Kami Meneses MD [address] [address] Consulting Physician Urology 06/16/23 Anette Bond MD [address] [place] [address] Consulting Physician Gastroenterology 12/25/22 Kay Gordon APRN, ORDERING BOX OPERATOR #2 [facility] [place] [address] Nurse Practitioner Advanced Practice Nurse 06/16/24 Kami Meneses MD [address] [address] Consulting Physician Urology 08/19/24 Kami Meneses MD [address] [address] Consulting Physician Urology 01/06/25 documented as of this encounter
--- OUTSIDE RECORDS SUMMARY | 2025-02-08 15:18 | XMS_ITS | Encounter Summary ---
Author Organization [facility] Address [address] [place] [address] Phone Care Team Providers Care Maori Physiotherapist Name Role Phone Fuentes Orellana MD Primary Care Provider Brent Dickinson DO Unavailable [phone] Faviola Jiménez ASSURANCE SENIOR MANAGER, IMPREGNATING TANK OPERATOR Unavailable Shawnee Mckinney MD Unavailable Chicho Clayton MD Unavailable Lai Lambert ASSURANCE SENIOR MANAGER, IMPREGNATING TANK OPERATOR Unavailable Kami Meneses MD Unavailable [phone] Anette Bond MD Unavailable [phone] Kay Gordon ASSURANCE SENIOR MANAGER, IMPREGNATING TANK OPERATOR Unavailable Kami Meneses MD Unavailable [phone] Kami Meneses MD Unavailable [phone] Reason for Visit * Reason Comments Medication Refill Encounter Details Date Type Department Care Team (Late st Contact Info) Description 11/12/2022 Refill [facility] - G[facility]enterology - [place] [address] [place] [address] Ingrid Mccloud Ashley, PAC [address] [place] [address] Medication Refill Social History Tobacco Use Types [...] Job 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 Date 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 on 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 Not on file [...] [facility] [address] [place] [address] Kami Meneses MD [address], [address] [address] documented as of this encounter Visit Diagnoses Not on filedocumented in this encounter Care Teams Maori Physiotherapist Relationship Specialty Start Date End Date Fuentes Orellana MD [address] [address] PCP - General Family Medicine 07/06/15 Brent Dickinson DO [address] [place] [address] Gastroenterology 06/27/16 Faviola Jiménez APRN, IMPREGNATING TANK OPERATOR -[place] [address] Nurse Practitioner Advanced Practice Nurse 07/22/16 Shawnee Mckinney MD [address] [facility] [address] [place] [address] Urologist Urology 06/07/19 Chicho Clayton MD [address] [facility] 7 [place] [address] Oncology 06/13/19 Lai Lambert APRN, IMPREGNATING TANK OPERATOR [address] [place] [address] Nurse Practitioner Advanced Practice Nurse 02/10/23 Kami Meneses MD #[address] [address] Consulting Physician Urology 06/16/23 Anette Bond MD #2 [place] [address] Consulting Physician Gastroenterology 12/25/22 Kay Gordon APRN, IMPREGNATING TANK OPERATOR [address] [place] [address] Nurse Practitioner Advanced Practice Nurse 06/16/24 Kami Meneses MD #[address] [address] Consulting Physician Urology 08/19/24 Kami Meneses MD #[address] [address] Consulting Physician Urology 01/06/25 documented as of this encounter
--- OUTSIDE RECORDS SUMMARY | 2025-02-08 15:18 | XMS_ITS | Encounter Summary ---
Author Organization [facility] Address [address] [place] [address] Phone Care Team Providers Care Medical Delivery Driver Name Role Phone Fuentes Orellana MD Primary Care Provider Brent Dickinson DO Unavailable [phone] Faviola Jiménez COLLECTION OFFICER, PRIVATE MORTGAGE BANKER SAFE Unavailable Shawnee Mckinney MD Unavailable Chicho Clayton MD Unavailable Lai Lambert COLLECTION OFFICER, PRIVATE MORTGAGE BANKER SAFE Unavailable [phone] Kami Meneses MD Unavailable [phone] Anette Bond MD Unavailable [phone] Kay Gordon COLLECTION OFFICER, PRIVATE MORTGAGE BANKER SAFE Unavailable Kami Meneses MD Unavailable [phone] Kami Meneses MD Unavailable [phone] Encounter Details Date Type Department Care Team (Late st Contact Info) Description 12/16/2024 Telephone [facility] [address] [place] [address] Kami Meneses MD [address] [address] Social History Tobacco Use Types Packs/Day Years [...] Job 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 Date 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 Chicho Clayton at [place] for prostate. * Telephone Encounter - Kami Meneses MD - 12/16/2024 11:45 AM CDT Can you ask the patient who follows him for his prostate cancer? documented in this encounter Plan of Treatment Upcoming Encounters Date Type Department Care Team (Late st Contact Info) Description 03/10/2025 2:15 PM CDT Office Visit [facility] [address] [place] [address] Kami Meneses MD [address] [address] documented as of this encounter Visit Diagnoses Not on filedocumented in this encounter Care Teams Medical Delivery Driver Relationship Specialty Start Date End Date Fuentes Orellana MD [address] [place] [address] PCP - General Family Medicine 07/06/15 Brent Dickinson DO [address] [address] Gastroenterology 06/27/16 Faviola Jiménez APRN, PRIVATE MORTGAGE BANKER SAFE [address] [address] Nurse Practitioner Advanced Practice Nurse 07/22/16 Shawnee Mckinney MD 4960 [facility] [address] [place] [address] Urologist Urology 06/07/19 Chicho Clayton MD [address] [facility] 7 [place] [address] Oncology 06/13/19 Lai Lambert APRN, PRIVATE MORTGAGE BANKER SAFE [address] [place] [address] Nurse Practitioner Advanced Practice Nurse 02/10/23 Kami Meneses MD #[address] [address] Consulting Physician Urology 06/16/23 Anette Bond MD #[address] [place] [address] Consulting Physician Gastroenterology 12/25/22 Kay Gordon APRN, PRIVATE MORTGAGE BANKER SAFE [address] [place] [address] Nurse Practitioner Advanced Practice Nurse 06/16/24 Kami Meneses MD #[address] [address] Consulting Physician Urology 08/19/24 Kami Meneses MD #[address] [address] Consulting Physician Urology 01/06/25 documented as of this encounter
--- OUTSIDE RECORDS SUMMARY | 2025-02-08 15:19 | XMS_ITS | Clinical Summary ---
Author Organization [facility] Address [address] [place] [address] Phone Care Team Providers Care Needle Polisher Name Role Phone Fuentes Orellana MD Primary Care Provider [phone] Allergies No known active allergies Medications pantoprazole [...] 10:56 AM CDT Height 167.6 cm (5' 6) 01/18/2019 10:56 AM CDT Body Mass Index [...] series) 2024 Medical Devices Implanted Type Area Restaurant Maintenance Technician Device Identifier Shelf Expiration Date Model / Serial / Lot Ams 800 Urinary Control System(Penile Implant) Description:MRI conditional for 3T or less -danisha 01/04/19 Insurance MEDICARE PART A AND B [facility] [id number] Care Teams Needle Polisher Relationship Specialty Start Date End Date Fuentes Orellana MD [address] [place] [address] PCP - General Family Practice 01/04/19
--- OUTSIDE RECORDS SUMMARY | 2025-02-08 15:19 | XMS_ITS | Clinical Summary ---
Author Organization [facility] Address [address], [facility] [address] [place] [address] Phone Care Team Providers Care Note Keeper Name Role Phone Fuentes Orellana MD Primary Care Provider [phone] Brent Dickinson DO Unavailable [phone] Faviola Jiménez GARMENT ALTERATION EXAMINER, DIRECT CARE STAFFER Unavailable Shawnee Mckinney MD Unavailable Chicho Clayton MD Unavailable Lai Lambert GARMENT ALTERATION EXAMINER, DIRECT CARE STAFFER Unavailable [phone] Kami Meneses MD Unavailable [phone] Anette Bond MD Unavailable [phone] Kay Gordon GARMENT ALTERATION EXAMINER, DIRECT CARE STAFFER Unavailable Kami Meneses MD Unavailable [phone] Kami Meneses MD Unavailable [phone] Allergies No known active allergies Medications [...] Visit [facility] [address] [facility] [place] [address] Kami Meneses MD UTI symptoms (Primary Dx); Stress incontinence (female) (male); Dysuria Discharge Disposition: Discharged to home or Selfcare 01/20/2025 Travel 01/13/2025 Telephone [facility] [address] [place] [address] Kami Meneses MD 01/10/2025 1:30 PM CDT Office Visit [facility] [address] [place] [address] Kami Meneses MD UTI symptoms (Primary Dx) Discharge Disposition: Discharged to home or Selfcare 01/10/2025 Travel 12/23/2024 9:00 AM CDT Office Visit [facility] [address] [place] [address] Kami Meneses MD UTI symptoms (Primary Dx) Discharge Disposition: Discharged to home or Selfcare 12/23/2024 Travel 12/21/2024 Telephone [facility] [address] [place] [address] Kami Meneses MD Testicle Pain 12/16/2024 10:45 AM CDT Office Visit [facility] [address] [place] [address] Kami Meneses MD Stress incontinence (female) (male) (Primary Dx) Discharge Disposition: Discharged to home or Selfcare 12/16/2024 Telephone [facility] #[address] [place] [address] Kami Meneses MD 12/16/2024 Travel from Last [...] Job 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 Date 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 on file Not on file Not on cory e Last Filed Vital Signs Vital Sign Reading Time Taken Comments Blood Pressure 129/68 01/20/2025 9:49 AM CDT Pulse 71 01/20/2025 9:49 AM CDT Temperature 36.4 C (97.6 F) 08/10/2024 9:53 AM CORK INSULATION INSTALLER Respiratory Rate 18 01/20/2025 9:49 AM CDT [...] [facility]YSICIAN GROUP [facility] #[address] [place] [address] Kami Meneses MD [address] [address] Health Maintenance Due Date Last Done Comments Hepatitis C Virus (HCV) Screening 1949 Zoster Immunization (1 of 2) 1968 Cologuard 1994 Immunochemical Fecal Occult Blood 1994 Pneumococcal Immunization (50+ years) (2 of 2 [...] was administered transurethrally. A well lubricated 16 Upper Sorbian flexible cystoscope was introduced transurethrally. Findings: Urethra: No evidence of erosion, good coaptation noted The patient tolerated the procedure well. Specimen sent: None Plan: See progress note Kami Gleason MD [place] - SURGERY Final Result * POCT UA AUTOMATED W/O MICRO (01/20/2025 9:55 AM CDT) [facility] POC UA SPECIFIC GRAVITY 1.020 URINE PH [...] of2 resultswithin the time period is included. [facility] CULTURE RESULTS No growth final 01/11/2025 5:23 PM CDT [facility] Culture URINE SPECIMEN OBTAINED BY CLEAN CATCH PROCEDURE / Unknown Non-Phlebotomy Collection / Unknown 01/10/2025 1:45 PM CDT 01/10/2025 1:45 PM CDT Kami Gleason MD MICROBIOLOGY - GENERAL ORDERAB LES Final Result [facility] [address] [place] [address], [place] * COLONOSCOPY (05/24/2020) us Brent Dickinson DO PROCEDURE/MINOR SURGICAL ORDERA BLES Final Result from Last 3 Months or Most Recently Relevant to Health Maintenance Insurance MEDICARE [facility] Care Teams Note Keeper Relationship Specialty Start Date End Date Fuentes Orellana MD [address] [address] PCP - General Family Medicine 07/06/15 Brent Dickinson DO [address] [address] Gastroenterology 06/27/16 Faviola Jiménez APRN, DIRECT CARE STAFFER [address] [address] Nurse Practitioner Advanced Practice Nurse 07/22/16 Shawnee Mckinney MD [address] [facility] [address] [place] [address] Urologist Urology 06/07/19 Chicho Clayton MD [address] [facility] 7 [place] [address] Oncology 06/13/19 Lai Lambert APRN, DIRECT CARE STAFFER [address] [place] [address] Nurse Practitioner Advanced Practice Nurse 02/10/23 Kami Meneses MD #[address] [address] Consulting Physician Urology 06/16/23 Anette Bond MD #2 [place] [address] Consulting Physician Gastroenterology 12/25/22 Kay Gordon APRN, DIRECT CARE STAFFER #2 [place] [address] Nurse Practitioner Advanced Practice Nurse 06/16/24 Kami Mensees MD [address], [facility] [address] [place] [address] Consulting Physician Urology 08/19/24 Kami Meneses MD #[address], [facility] [address] [place] [address] Consulting Physician Urology 01/06/25
--- OUTSIDE RECORDS SUMMARY | 2025-02-08 15:19 | XMS_ITS | Clinical Summary ---
Author Organization Unknown Care Team Providers Care Nursing Consultant Name Role Phone PRABHJOT ESCOBAR, KIRK Unavailable Mikey RUSH LEATHER GRAINER, DAPHNE Unavailable Unavailpatricia PAGE OT, TAMIE Unavailable Unavailable MARCE PT, YANET Unavailable Unavailable VERONICA RN, ABI Unavailable Unavailable LOIS RITTERN, RICARDA Unavailable Unavailable Payers Payer Name Policy Type Policy Number Effective Date Expira tion Date MEDICARE.[facility] [id number] Problems Condition Name Condition Details Condition Category [...] 08-31 00:00: 00 ATHSCL HEART DISEASE OF [place] CORONARY ARTERY W/O ANG PCTRS Active 08-31 [...] 11-09 00:00: 00 01-10 00:00 :00 No [id number] PAIN 1 tablet DAILY 1 tablet DAILY (route: oral) Med Classific ation: Analgesic , Anti-infl ammatory or Antipyret ic sulfamethox azole 800 mg-trimetho prim 160 mg tablet 11-12 00:00: 00 11-19 23:59 :00 No [id number] PROPHYLATIC 1 tablet 2 TIMES DAILY 1 tablet 2 TIMES DAILY (route: oral) Med Classific ation: Anti-Infe ctive Agents metoprolol tartrate 25 mg tablet 11-03 00:00: 00 Yes [id number] HIGH BLOOD PRESSURE 1 tablet 2 TIMES DAILY 1 tablet 2 TIMES DAILY (route: oral) Med Classific ation: Cardiovas cular Therapy Agents rosuvastati n 40 mg tablet 11-02 00:00: 00 Yes [id number] CHOLESTEROL 1 tablet DAILY 1 tablet DAILY (route: oral) Med Classific ation: Cardiovas cular Therapy Agents Brilinta 60 mg tablet 11-12 00:00: 00 Yes [id number] BLOOD THINNER 1 tablet 2 TIMES DAILY 1 tablet 2 TIMES DAILY (route: oral) Med Classific ation: Hematolog ical Agents acetaminoph en 500 mg tablet 11-12 00:00: 00 Yes [id number] NEEDED FOR PAIN 1-5/10 ON A 1-10 SCALE OR FEVER GREATER THAN 100.1 2 tablet EVERY 6 HOURS 2 tablet EVERY 6 HOURS (route: oral) Med Classific ation: Analgesic , Anti-infl ammatory or Antipyret ic alendronate 70 mg tablet 11-12 00:00: 00 Yes [id number] OSTEOARTHRI TIS 1 tablet WEEKLY 1 tablet WEEKLY (route: oral) Med Classific ation: Endocrine allopurinol 300 mg tablet 11-12 00:00: 00 Yes [id number] GOUT 1 tablet DAILY 1 tablet DAILY (route: oral) Med Classific ation: Gout and Hyperuric emia Therapy alprazolam 0.25 mg tablet 11-12 00:00: 00 Yes [id number] NEEDED FOR ANXIETY 1 tablet 3 TIMES DAILY 1 tablet 3 TIMES DAILY (route: oral) Med Classific ation: Central Nervous System Agents amlodipine 5 mg tablet 11-12 00:00: 00 Yes [id number] HIGH BLOOD PRESSURE 1 tablet DAILY 1 tablet DAILY (route: oral) Med Classific ation: Cardiovas cular Therapy Agents cephalexin 500 mg capsule 11-12 00:00: 00 11-18 23:59 :00 No [id number] PROPHYLATIC 1 capsule 2 TIMES DAILY 1 capsule 2 TIMES DAILY (route: oral) Med Classific ation: Anti-Infe ctive Agents chlorthalid one 25 mg tablet 11-12 00:00: 00 Yes [id number] HIGH BLOOD PRESSURE 1 tablet DAILY 1 tablet DAILY (route: oral) Med Classific ation: Cardiovas cular Therapy Agents Kerendia 10 mg tablet 11-12 00:00: 00 Yes [id number] KIDNEY DISEASE 1 tablet DAILY 1 tablet DAILY (route: oral) Med Classific ation: Cardiovas cular Therapy Agents pantoprazol e 40 mg tablet,ingrid yed release 11-12 00:00: 00 Yes [id number] GASTROESOPH AGEAL REFULX DISEASE 1 tablet DAILY 1 tablet DAILY (route: oral) Med Classific ation: Gastroint estinal Therapy Agents telmisartan 80 mg tablet 11-12 00:00: 00 Yes [id number] HIGH BLOOD PRESSURE 1 tablet DAILY 1 tablet DAILY (route: oral) Med Classific ation: Cardiovas cular Therapy Agents Tradjenta 5 mg tablet 11-12 00:00: 00 Yes [id number] DIABETES 1 tablet DAILY 1 tablet DAILY (route: oral) Med Classific ation: Endocrine nitroglycer in 0.3 mg sublingual tablet 11-12 00:00: 00 Yes [id number] NEEDED FOR CHEST PAIN 1 tablet EVERY 5 MINUTES TIMES 3 1 tablet EVERY 5 MINUTES TIMES 3 (route: sublingual ) Med Classific ation: Cardiovas cular Therapy Agents glimepiride 1 mg tablet 12-13 00:00: 00 Yes [id number] DIABETES 1 mg 2 TIMES DAILY 1 mg 2 TIMES DAILY (route: oral) Alternate Route: BY MOUTH. Med Classific ation: Endocrine Gvoke 1 mg/0.2 mL subcutaneou s solution 12-13 00:00: 00 Yes [id number] LOW BLOOD SUGAR Per instruc tions NEEDED Per instructio ns NEEDED (route: subcutaneo us) Alternate Route: SUBCUTANE OUS. Med Classific ation: Endocrine phenazopyri dine 200 mg tablet 12-21 00:00: 00 Yes [id number] URINARY PAIN 200 mg 3 TIMES DAILY [...] SAVANNAH DUENAS RN TO OBSERVE AND ASSESS, QUENCHING MACHINE OPERATOR/BROACH TROUBLE SHOOTER TO OBSERVE FOR RISK FOR FALLS AND INSTRUCT IN FALL PREVENTION, HOME SAFETY, MEDICATION MANAGEMENT, INFECTION PREVENTION, AND NUTRITION MANAGEMENT. RN/QUENCHING MACHINE OPERATOR/BROACH TROUBLE SHOOTER NURSE MAY PERFORM O2 SATURATION LEVEL ON ADMISSION AND PRN FOR EVERY VISIT FOR RN TO ASSESS/QUENCHING MACHINE OPERATOR TO OBSERVE PATIENT, WITH NOTIFICATION TO THE PHYSICIAN IF SATURATION IS 90% IN THE ABSENCE OF MORE SPECIFIC PARAMETERS FROM THE PHYSICIAN. AGENCY MAY PERFORM A RESUMPTION OF CARE VISIT FOLLOWING ANY HOSPITAL ADMISSION. RN/QUENCHING MACHINE OPERATOR/BROACH TROUBLE SHOOTER TO MONITOR CO-MORBID CONDITIONS LISTED ON THE PLAN OF CARE AND ANY NEW CONDITIONS THAT PRESENT THEMSELVES DURING THIS EPISODE TO IDENTIFY CHANGES AND INTERVENE TO MINIMIZE COMPLICATIONS. [code = RN TO OBSERVE, ASSESS, EVALUATE, AND DEVELOP AN INDIVIDUALIZED PLAN OF CARE. AGENCY MAY ACCEPT ORDERS FROM CONSULTING PHYSICIANS DR SAVANNAH DUENAS RN TO OBSERVE AND ASSESS, QUENCHING MACHINE OPERATOR/BROACH TROUBLE SHOOTER TO OBSERVE FOR RISK FOR FALLS AND INSTRUCT IN FALL PREVENTION, HOME SAFETY, MEDICATION MANAGEMENT, INFECTION PREVENTION, AND NUTRITION MANAGEMENT. RN/QUENCHING MACHINE OPERATOR/BROACH TROUBLE SHOOTER NURSE MAY PERFORM O2 SATURATION LEVEL ON ADMISSION AND PRN FOR EVERY VISIT FOR RN TO ASSESS/QUENCHING MACHINE OPERATOR TO OBSERVE PATIENT, WITH NOTIFICATION TO THE PHYSICIAN IF SATURATION IS 90% IN THE ABSENCE OF MORE SPECIFIC PARAMETERS FROM THE PHYSICIAN. AGENCY MAY PERFORM A RESUMPTION OF CARE VISIT FOLLOWING ANY HOSPITAL ADMISSION. RN/QUENCHING MACHINE OPERATOR/BROACH TROUBLE SHOOTER TO MONITOR CO-MORBID CONDITIONS LISTED ON THE PLAN OF CARE AND ANY NEW CONDITIONS THAT PRESENT THEMSELVES DURING THIS EPISODE TO IDENTIFY CHANGES AND INTERVENE TO MINIMIZE COMPLICATIONS.] Future Scheduled Test MEDICATION MANAGEMENT; RN/QUENCHING MACHINE OPERATOR/BROACH TROUBLE SHOOTER TO REVIEW MEDICATIONS FOR INTERACTIONS, EFFECTIVENESS OF DRUG THERAPY, AND SIGNS/SYMPTOMS OF ADVERSE REACTIONS. MAY INSTRUCT AND REINFORCE MEDICATION TEACHING RELATED TO THE USE OF MEDICATIONS, DOSAGE, FREQUENCY, PURPOSE, SIDE EFFECTS, AND TO REPORT COMPLICATIONS. [code = MEDICATION MANAGEMENT; RN/QUENCHING MACHINE OPERATOR/BROACH TROUBLE SHOOTER TO REVIEW MEDICATIONS FOR INTERACTIONS, EFFECTIVENESS OF DRUG THERAPY, AND SIGNS/SYMPTOMS OF ADVERSE REACTIONS. MAY INSTRUCT AND REINFORCE MEDICATION TEACHING RELATED TO THE USE OF MEDICATIONS, DOSAGE, FREQUENCY, PURPOSE, SIDE EFFECTS, AND TO REPORT COMPLICATIONS.] Future Scheduled Test ANTITHROMB OTIC MANAGEMENT; RN TO ASSESS AND TEACH, QUENCHING MACHINE OPERATOR/BROACH TROUBLE SHOOTER TO OBSERVE/TEACH/MONITOR EFFECTIVENESS OF ANTITHROMBOTIC THERAPY. RN/QUENCHING MACHINE OPERATOR/BROACH TROUBLE SHOOTER TO INSTRUCT ON SIGNS AND SYMPTOMS OF BLEEDING/ADVERSE REACTIONS TO REPORT TO PHYSICIAN. PATIENT PRESCRIBED BRILINTA [code = ANTITHROMBOTIC MANAGEMENT; RN TO ASSESS AND TEACH, QUENCHING MACHINE OPERATOR/BROACH TROUBLE SHOOTER TO OBSERVE/TEACH/MONITOR EFFECTIVENESS OF ANTITHROMBOTIC THERAPY. RN/QUENCHING MACHINE OPERATOR/BROACH TROUBLE SHOOTER TO INSTRUCT ON SIGNS AND SYMPTOMS OF BLEEDING/ADVERSE REACTIONS TO REPORT TO PHYSICIAN. PATIENT PRESCRIBED BRILINTA] Future Scheduled Test RISK FOR H OSPITALIZATION; RN TO ASSESS/TEACH, BROACH TROUBLE SHOOTER/QUENCHING MACHINE OPERATOR TO OBSERVE/TEACH PATIENT/CAREGIVER ON RISK FOR HOSPITALIZATION/EMERGENCY ROOM VISITS, TEACH SIGNS AND SYMPTOMS THAT PUT PATIENT AT RISK, WHEN TO NOTIFY NURSE/PHYSICIAN OF COMPLICATIONS/DECLINE, AND WHEN TO CALL 911. [code = RISK FOR HOSPITALIZATION; RN TO ASSESS/TEACH, BROACH TROUBLE SHOOTER/QUENCHING MACHINE OPERATOR TO OBSERVE/TEACH PATIENT/CAREGIVER ON RISK FOR HOSPITALIZATION/EMERGENCY ROOM VISITS, TEACH SIGNS AND SYMPTOMS THAT PUT PATIENT AT RISK, WHEN TO NOTIFY NURSE/PHYSICIAN OF COMPLICATIONS/DECLINE, AND WHEN TO CALL 911.] Future Scheduled Test CARDIOVASC ULAR SYSTEM; RN TO ASSESS/TEACH, QUENCHING MACHINE OPERATOR/BROACH TROUBLE SHOOTER TO OBSERVE/TEACH RELATED TO ALTERED CARDIOVASCULAR STATUS TO MINIMIZE COMPLICATIONS AND REDUCE HOSPITALIZATION. [code = CARDIOVASCULAR SYSTEM; RN TO ASSESS/TEACH, QUENCHING MACHINE OPERATOR/BROACH TROUBLE SHOOTER TO OBSERVE/TEACH RELATED TO ALTERED CARDIOVASCULAR STATUS TO MINIMIZE COMPLICATIONS AND REDUCE HOSPITALIZATION.] Future Scheduled Test HYPERTENSI ON MANAGEMENT; RN TO ASSESS AND TEACH, QUENCHING MACHINE OPERATOR/BROACH TROUBLE SHOOTER TO OBSERVE AND TEACH WARNING SIGNS AND SYMPTOMS TO AVOID HOSPITALIZATION. [code = HYPERTENSION MANAGEMENT; RN TO ASSESS AND TEACH, QUENCHING MACHINE OPERATOR/BROACH TROUBLE SHOOTER TO OBSERVE AND TEACH WARNING SIGNS AND SYMPTOMS TO AVOID HOSPITALIZATION.] Future Scheduled Test RN/QUENCHING MACHINE OPERATOR/BROACH TROUBLE SHOOTER TO PERFORM/TEACH INCISION CARE TO AREA: UPPER ABDOMINAL AREA CLOSED WITH GLUE PATIENT MAY SHOWER. LEAVE OPEN TO AIR. DO NOT APPLY LOTION TO GLUE. [code = RN/QUENCHING MACHINE OPERATOR/BROACH TROUBLE SHOOTER TO PERFORM/TEACH INCISION CARE TO AREA: UPPER ABDOMINAL AREA CLOSED WITH GLUE PATIENT MAY SHOWER. LEAVE OPEN TO AIR. DO NOT APPLY LOTION TO GLUE.] Future Scheduled Test WOUND MOLE CULAR TESTING PROTOCOL UP TO 3 PRN RN/QUENCHING MACHINE OPERATOR VISITS MAY BE PERFORMED FOR S/S OF WOUND INFECTION/DETERIORATION/STAGNATION. RN TO ASSESS, QUENCHING MACHINE OPERATOR/BROACH TROUBLE SHOOTER TO OBSERVE AND INITIATE PROTOCOL. RN/QUENCHING MACHINE OPERATOR/BROACH TROUBLE SHOOTER TO INSTRUCT PATIENT AND/OR CAREGIVER ON S/S OF WOUND INFECTION/DETERIORATION/STAGNATION TO REPORT TO NURSE IF NEW OR WORSENING SYMPTOMS. RN/QUENCHING MACHINE OPERATOR/BROACH TROUBLE SHOOTER TO OBTAIN MOLECULAR WOUND TESTING VIA SWAB COLLECTION PER POLICY. [id number] NOTIFY PROVIDER OF RESULTS AND OBTAIN FURTHER ORDERS. [code = WOUND MOLECULAR TESTING PROTOCOL UP TO 3 PRN RN/QUENCHING MACHINE OPERATOR VISITS MAY BE PERFORMED FOR S/S OF WOUND INFECTION/DETERIORATION/STAGNATION. RN TO ASSESS, QUENCHING MACHINE OPERATOR/BROACH TROUBLE SHOOTER TO OBSERVE AND INITIATE PROTOCOL. RN/QUENCHING MACHINE OPERATOR/BROACH TROUBLE SHOOTER TO INSTRUCT PATIENT AND/OR CAREGIVER ON S/S OF WOUND INFECTION/DETERIORATION/STAGNATION TO REPORT TO NURSE IF NEW OR WORSENING SYMPTOMS. RN/QUENCHING MACHINE OPERATOR/BROACH TROUBLE SHOOTER TO OBTAIN MOLECULAR WOUND TESTING VIA SWAB COLLECTION PER POLICY. [id number] NOTIFY PROVIDER OF RESULTS AND OBTAIN FURTHER ORDERS.] Future Scheduled Test DIABETES M ANAGEMENT; RN TO ASSESS AND TEACH, BROACH TROUBLE SHOOTER/QUENCHING MACHINE OPERATOR TO OBSERVE AND TEACH INSTRUCTIONS OF DIABETIC CARE TO INCLUDE: DIET DIABETIC SKIN CARE, SIGNS AND SYMPTOMS OF HYPO/HYPERGLYCEMIA, PROPER ADMINISTRATION OF DIABETIC MEDICATION. RN/BROACH TROUBLE SHOOTER/QUENCHING MACHINE OPERATOR TO INSTRUCT ON DIABETIC FOOT CARE AND MONITOR FOR SKIN LESIONS ON LOWER EXTREMITIES. BLOOD GLUCOSE TESTING PRN RN TO ASSESS AND TEACH, BROACH TROUBLE SHOOTER/QUENCHING MACHINE OPERATOR TO OBSERVE AND TEACH PATIENT/CAREGIVER ABILITY TO PERFORM AND RECORD BLOOD GLUCOSE TESTING ORDERED AND TO REPORT ABNORMAL FINDINGS TO PHYSICIAN. RN/BROACH TROUBLE SHOOTER/QUENCHING MACHINE OPERATOR MAY PERFORM BLOOD GLUCOSE TEST NEEDED. RN/BROACH TROUBLE SHOOTER/QUENCHING MACHINE OPERATOR TO REPORT TO PHYSICIAN BLOOD GLUCOSE READINGS GREATER THAN 300 OR LESS THAN 70 RN/BROACH TROUBLE SHOOTER/QUENCHING MACHINE OPERATOR TO INSTRUCT PATIENT ON IMPORTANCE OF HGBA1C MONITORING, KIDNEY FUNCTION TEST, EYE AND FOOT EXAMS. [code = DIABETES MANAGEMENT; RN TO ASSESS AND TEACH, BROACH TROUBLE SHOOTER/QUENCHING MACHINE OPERATOR TO OBSERVE AND TEACH INSTRUCTIONS OF DIABETIC CARE TO INCLUDE: DIET DIABETIC SKIN CARE, SIGNS AND SYMPTOMS OF HYPO/HYPERGLYCEMIA, PROPER ADMINISTRATION OF DIABETIC MEDICATION. RN/BROACH TROUBLE SHOOTER/QUENCHING MACHINE OPERATOR TO INSTRUCT ON DIABETIC FOOT CARE AND MONITOR FOR SKIN LESIONS ON LOWER EXTREMITIES. BLOOD GLUCOSE TESTING PRN RN TO ASSESS AND TEACH, BROACH TROUBLE SHOOTER/QUENCHING MACHINE OPERATOR TO OBSERVE AND TEACH PATIENT/CAREGIVER ABILITY TO PERFORM AND RECORD BLOOD GLUCOSE TESTING ORDERED AND TO REPORT ABNORMAL FINDINGS TO PHYSICIAN. RN/BROACH TROUBLE SHOOTER/QUENCHING MACHINE OPERATOR MAY PERFORM BLOOD GLUCOSE TEST NEEDED. RN/BROACH TROUBLE SHOOTER/QUENCHING MACHINE OPERATOR TO REPORT TO PHYSICIAN BLOOD GLUCOSE READINGS GREATER THAN 300 OR LESS THAN 70 RN/BROACH TROUBLE SHOOTER/QUENCHING MACHINE OPERATOR TO INSTRUCT PATIENT ON IMPORTANCE OF HGBA1C MONITORING, KIDNEY FUNCTION TEST, EYE AND FOOT EXAMS.] Future Scheduled Test GENITOURIN KEZIA MANAGEMENT; RN TO ASSESS AND TEACH, QUENCHING MACHINE OPERATOR/BROACH TROUBLE SHOOTER TO OBSERVE AND TEACH RELATED TO ALTERED GENITOURINARY STATUS TO MINIMIZE COMPLICATIONS AND REDUCE HOSPITALIZATION. [code = GENITOURINARY MANAGEMENT; RN TO ASSESS AND TEACH, QUENCHING MACHINE OPERATOR/BROACH TROUBLE SHOOTER TO OBSERVE AND TEACH RELATED TO ALTERED GENITOURINARY STATUS TO MINIMIZE COMPLICATIONS AND REDUCE HOSPITALIZATION.] Future Scheduled Test URINARY CU LTURE AND SENSITIVITY PROTOCOL UP TO 2 PRN RN/QUENCHING MACHINE OPERATOR/BROACH TROUBLE SHOOTER VISITS MAY BE PERFORMED FOR S/S OF UTI. RN TO ASSESS, QUENCHING MACHINE OPERATOR/BROACH TROUBLE SHOOTER TO OBSERVE INITIATION OF UTI PROTOCOL. RN/BROACH TROUBLE SHOOTER/QUENCHING MACHINE OPERATOR TO INSTRUCT PATIENT AND/OR CAREGIVER ON S/S OF UTI TO REPORT TO RN/QUENCHING MACHINE OPERATOR/BROACH TROUBLE SHOOTER IF NEW OR WORSENING SYMPTOMS. DRINK PLENTY OF WATER THROUGHOUT THE DAY TO MAINTAIN HYDRATION (UNLESS CONTRAINDICATED.) URINATE WHEN THE URGE IS FELT, DO NOT WAIT. WASH GENITALS DAILY. WIPE FROM FRONT TO BACK AFTER HAVING A BOWEL MOVEMENT. RN/BROACH TROUBLE SHOOTER/QUENCHING MACHINE OPERATOR TO OBTAIN UA WITH C/S VIA CLEAN CATCH URINE AND IF UNABLE TO OBTAIN MAY PERFORM AN IN AND OUT CATH. IF PATIENT HAS INDWELLING CATHETER MAY OBTAIN FROM SAMPLING PORT. NOTIFY PROVIDER OF RESULTS AND OBTAIN FURTHER ORDERS. [code = URINARY CULTURE AND SENSITIVITY PROTOCOL UP TO 2 PRN RN/QUENCHING MACHINE OPERATOR/BROACH TROUBLE SHOOTER VISITS MAY BE PERFORMED FOR S/S OF UTI. RN TO ASSESS, QUENCHING MACHINE OPERATOR/BROACH TROUBLE SHOOTER TO OBSERVE INITIATION OF UTI PROTOCOL. RN/BROACH TROUBLE SHOOTER/QUENCHING MACHINE OPERATOR TO INSTRUCT PATIENT AND/OR CAREGIVER ON S/S OF UTI TO REPORT TO RN/QUENCHING MACHINE OPERATOR/BROACH TROUBLE SHOOTER IF NEW OR WORSENING SYMPTOMS. DRINK PLENTY OF WATER THROUGHOUT THE DAY TO MAINTAIN HYDRATION (UNLESS CONTRAINDICATED.) URINATE WHEN THE URGE IS FELT, DO NOT WAIT. WASH GENITALS DAILY. WIPE FROM FRONT TO BACK AFTER HAVING A BOWEL MOVEMENT. RN/BROACH TROUBLE SHOOTER/QUENCHING MACHINE OPERATOR TO OBTAIN UA WITH C/S VIA CLEAN CATCH URINE AND IF UNABLE TO OBTAIN MAY PERFORM AN IN AND OUT CATH. IF PATIENT HAS INDWELLING CATHETER MAY OBTAIN FROM SAMPLING PORT. NOTIFY PROVIDER OF RESULTS AND OBTAIN FURTHER ORDERS.] Future Scheduled Test URINARY IN CONTINENCE MANAGEMENT; RN TO ASSESS AND TEACH, QUENCHING MACHINE OPERATOR/LVNTO OBSERVE AND TEACH MANAGEMENT OF URINARY INCONTINENCE. TEACH/INSTRUCT ON PREVENTING INFECTION AND SKIN BREAKDOWN. RN/QUENCHING MACHINE OPERATOR/BROACH TROUBLE SHOOTER MAY INSTRUCT IN BLADDER TRAINING PROGRAM INDICATED. [code = URINARY INCONTINENCE MANAGEMENT; RN TO ASSESS AND TEACH, QUENCHING MACHINE OPERATOR/LVNTO OBSERVE AND TEACH MANAGEMENT OF URINARY INCONTINENCE. TEACH/INSTRUCT ON PREVENTING INFECTION AND SKIN BREAKDOWN. RN/QUENCHING MACHINE OPERATOR/BROACH TROUBLE SHOOTER MAY INSTRUCT IN BLADDER TRAINING PROGRAM INDICATED.] Future Scheduled Test URINARY MO LECULAR TESTING PROTOCOL UP TO 2 PRN RN/QUENCHING MACHINE OPERATOR/BROACH TROUBLE SHOOTER VISITS MAY BE PERFORMED FOR S/S OF UTI. RN TO ASSESS, QUENCHING MACHINE OPERATOR/BROACH TROUBLE SHOOTER TO OBSERVE INITIATION OF UTI PROTOCOL. RN/BROACH TROUBLE SHOOTER/QUENCHING MACHINE OPERATOR TO INSTRUCT PATIENT AND/OR CAREGIVER ON S/S OF UTI TO REPORT TO RN/BROACH TROUBLE SHOOTER/QUENCHING MACHINE OPERATOR IF NEW OR WORSENING SYMPTOMS. DRINK PLENTY OF WATER THROUGHOUT THE DAY TO MAINTAIN HYDRATION (UNLESS CONTRAINDICATED.) URINATE WHEN THE URGE IS FELT, DO NOT WAIT. WASH GENITALS DAILY. WIPE FROM FRONT TO BACK AFTER HAVING A BOWEL MOVEMENT. RN/BROACH TROUBLE SHOOTER/QUENCHING MACHINE OPERATOR TO OBTAIN MOLECULAR URINE TESTING BY OPTION 1 OR OPTION 2 (OPTION 1) RN/BROACH TROUBLE SHOOTER/QUENCHING MACHINE OPERATOR TO OBTAIN U/A WITH REFLEX TO UTI PANEL (MOLECULAR) VIA CLEAN CATCH URINE AND IF UNABLE TO OBTAIN MAY PERFORM AN IN AND OUT CATH. IF PATIENT HAS INDWELLING CATHETER MAY OBTAIN FROM SAMPLING PORT. (OPTION 2) RN/BROACH TROUBLE SHOOTER/QUENCHING MACHINE OPERATOR TO OBTAIN UTI PANEL (MOLECULAR) VIA SWAB COLLECTION METHOD FROM ADULT BRIEF/DIAPER OR PAD IF PATIENT IS INCONTINENT. NOTIFY PROVIDER OF RESULTS AND OBTAIN FURTHER ORDERS. [code = URINARY MOLECULAR TESTING PROTOCOL UP TO 2 PRN RN/QUENCHING MACHINE OPERATOR/BROACH TROUBLE SHOOTER VISITS MAY BE PERFORMED FOR S/S OF UTI. RN TO ASSESS, QUENCHING MACHINE OPERATOR/BROACH TROUBLE SHOOTER TO OBSERVE INITIATION OF UTI PROTOCOL. RN/BROACH TROUBLE SHOOTER/QUENCHING MACHINE OPERATOR TO INSTRUCT PATIENT AND/OR CAREGIVER ON S/S OF UTI TO REPORT TO RN/BROACH TROUBLE SHOOTER/QUENCHING MACHINE OPERATOR IF NEW OR WORSENING SYMPTOMS. DRINK PLENTY OF WATER THROUGHOUT THE DAY TO MAINTAIN HYDRATION (UNLESS CONTRAINDICATED.) URINATE WHEN THE URGE IS FELT, DO NOT WAIT. WASH GENITALS DAILY. WIPE FROM FRONT TO BACK AFTER HAVING A BOWEL MOVEMENT. RN/BROACH TROUBLE SHOOTER/QUENCHING MACHINE OPERATOR TO OBTAIN MOLECULAR URINE TESTING BY OPTION 1 OR OPTION 2 (OPTION 1) RN/BROACH TROUBLE SHOOTER/QUENCHING MACHINE OPERATOR TO OBTAIN U/A WITH REFLEX TO UTI PANEL (MOLECULAR) VIA CLEAN CATCH URINE AND IF UNABLE TO OBTAIN MAY PERFORM AN IN AND OUT CATH. IF PATIENT HAS INDWELLING CATHETER MAY OBTAIN FROM SAMPLING PORT. (OPTION 2) RN/BROACH TROUBLE SHOOTER/QUENCHING MACHINE OPERATOR TO OBTAIN UTI PANEL (MOLECULAR) VIA SWAB COLLECTION METHOD FROM ADULT BRIEF/DIAPER OR PAD IF PATIENT IS INCONTINENT. NOTIFY PROVIDER OF RESULTS AND OBTAIN FURTHER ORDERS.] Future Scheduled Test PRN VISITS ; NUMBER OF RN/QUENCHING MACHINE OPERATOR/BROACH TROUBLE SHOOTER VISITS: 1 RN/QUENCHING MACHINE OPERATOR/BROACH TROUBLE SHOOTER TO PERFORM: SURGICAL INCISION MANAGEMENT FOR THE FOLLOWING REASONS: COMPLICATIONS [code = PRN VISITS; NUMBER OF RN/QUENCHING MACHINE OPERATOR/BROACH TROUBLE SHOOTER VISITS: 1 RN/QUENCHING MACHINE OPERATOR/BROACH TROUBLE SHOOTER TO PERFORM: SURGICAL INCISION MANAGEMENT FOR THE FOLLOWING REASONS: COMPLICATIONS ] Future Scheduled Test FALL REDUC TION MANAGEMENT; RN TO ASSESS AND OBSERVE, QUENCHING MACHINE OPERATOR/BROACH TROUBLE SHOOTER TO OBSERVE FALL RISK FACTORS AND EDUCATE PATIENT/CAREGIVER ON STRATEGIES TO MINIMIZE THE RISK OF FALLING. [code = FALL REDUCTION MANAGEMENT; RN TO ASSESS AND OBSERVE, QUENCHING MACHINE OPERATOR/BROACH TROUBLE SHOOTER TO OBSERVE FALL RISK FACTORS AND EDUCATE PATIENT/CAREGIVER ON STRATEGIES TO MINIMIZE THE RISK OF FALLING.] Future Scheduled Test CANCER MAN AGEMENT; RN TO ASSESS AND TEACH, BROACH TROUBLE SHOOTER/QUENCHING MACHINE OPERATOR TO OBSERVE AND TEACH AND PROVIDE EDUCATION ON CANCER. [code = CANCER MANAGEMENT; RN TO ASSESS AND TEACH, BROACH TROUBLE SHOOTER/QUENCHING MACHINE OPERATOR TO OBSERVE AND TEACH AND PROVIDE EDUCATION ON CANCER.] Future Scheduled Test PAIN MANAG EMENT; RN TO ASSESS AND TEACH, BROACH TROUBLE SHOOTER/QUENCHING MACHINE OPERATOR TO OBSERVE AND TEACH AND PROVIDE EDUCATION ON PAIN MANAGEMENT TECHNIQUES. [code = PAIN MANAGEMENT; RN TO ASSESS AND TEACH, BROACH TROUBLE SHOOTER/QUENCHING MACHINE OPERATOR TO OBSERVE AND TEACH AND PROVIDE [...] End Date/Time Encounter Type Admission Type Attending [facility] Care Department Encounter ID Discharge Date Discharge Status Discharge Condition Discharge Reason Percent Goals Met 2025-01-13 00:00:00 2025-03-13 00:00:00 Outpatient [facility] [id number] 30.00
--- OUTSIDE RECORDS SUMMARY | 2025-02-08 15:19 | XMS_ITS | Clinical Summary ---
Author Organization Unknown Care Team Providers Care Restaurant Service Manager Name Role Phone PRABHJOT ESCOBAR, KIRK Unavailable Mikey RUSH IMAGING TECHNICIAN, DAPHNE Unavailable Unavailpatricia PAGE OT, TAMIE Unavailable Unavailable MARCE PT, YANET Unavailable Unavailable VERONICA RN, ABI Unavailable Unavailable LOIS RITTERN, RICARDA Unavailable Unavailable Payers Payer Name Policy Type Policy Number Effective Date Expira tion Date MEDICARE.[facility] [id number] Problems Condition Name Condition Details Condition Category [...] 08-31 00:00: 00 ATHSCL HEART DISEASE OF [place] CORONARY ARTERY W/O ANG PCTRS Active 08-31 [...] SPECIFIED FUNCTIONAL IMPLANTS Active 08-31 00:00: 00 HALFWAY (CURRENT) USE OF ASPIRIN Active 08-31 00:00: [...] 11-09 00:00: 00 01-10 00:00 :00 No [id number] PAIN 1 tablet DAILY 1 tablet DAILY (route: oral) Med Classific ation: Analgesic , Anti-infl ammatory or Antipyret ic sulfamethox azole 800 mg-trimetho prim 160 mg tablet 11-12 00:00: 00 11-19 23:59 :00 No [id number] PROPHYLATIC 1 tablet 2 TIMES DAILY 1 tablet 2 TIMES DAILY (route: oral) Med Classific ation: Anti-Infe ctive Agents metoprolol tartrate 25 mg tablet 11-03 00:00: 00 Yes [id number] HIGH BLOOD PRESSURE 1 tablet 2 TIMES DAILY 1 tablet 2 TIMES DAILY (route: oral) Med Classific ation: Cardiovas cular Therapy Agents rosuvastati n 40 mg tablet 11-02 00:00: 00 Yes [id number] CHOLESTEROL 1 tablet DAILY 1 tablet DAILY (route: oral) Med Classific ation: Cardiovas cular Therapy Agents Brilinta 60 mg tablet 11-12 00:00: 00 Yes [id number] BLOOD THINNER 1 tablet 2 TIMES DAILY 1 tablet 2 TIMES DAILY (route: oral) Med Classific ation: Hematolog ical Agents acetaminoph en 500 mg tablet 11-12 00:00: 00 Yes [id number] NEEDED FOR PAIN 1-5/10 ON A 1-10 SCALE OR FEVER GREATER THAN 100.1 2 tablet EVERY 6 HOURS 2 tablet EVERY 6 HOURS (route: oral) Med Classific ation: Analgesic , Anti-infl ammatory or Antipyret ic alendronate 70 mg tablet 11-12 00:00: 00 Yes [id number] OSTEOARTHRI TIS 1 tablet WEEKLY 1 tablet WEEKLY (route: oral) Med Classific ation: Endocrine allopurinol 300 mg tablet 11-12 00:00: 00 Yes [id number] GOUT 1 tablet DAILY 1 tablet DAILY (route: oral) Med Classific ation: Gout and Hyperuric emia Therapy alprazolam 0.25 mg tablet 11-12 00:00: 00 Yes [id number] NEEDED FOR ANXIETY 1 tablet 3 TIMES DAILY 1 tablet 3 TIMES DAILY (route: oral) Med Classific ation: Central Nervous System Agents amlodipine 5 mg tablet 11-12 00:00: 00 Yes [id number] HIGH BLOOD PRESSURE 1 tablet DAILY 1 tablet DAILY (route: oral) Med Classific ation: Cardiovas cular Therapy Agents cephalexin 500 mg capsule 11-12 00:00: 00 11-18 23:59 :00 No [id number] PROPHYLATIC 1 capsule 2 TIMES DAILY 1 capsule 2 TIMES DAILY (route: oral) Med Classific ation: Anti-Infe ctive Agents chlorthalid one 25 mg tablet 11-12 00:00: 00 Yes [id number] HIGH BLOOD PRESSURE 1 tablet DAILY 1 tablet DAILY (route: oral) Med Classific ation: Cardiovas cular Therapy Agents Kerendia 10 mg tablet 11-12 00:00: 00 Yes [id number] KIDNEY DISEASE 1 tablet DAILY 1 tablet DAILY (route: oral) Med Classific ation: Cardiovas cular Therapy Agents pantoprazol e 40 mg tablet,ingrid yed release 11-12 00:00: 00 Yes [id number] GASTROESOPH AGEAL REFULX DISEASE 1 tablet DAILY 1 tablet DAILY (route: oral) Med Classific ation: Gastroint estinal Therapy Agents telmisartan 80 mg tablet 11-12 00:00: 00 Yes [id number] HIGH BLOOD PRESSURE 1 tablet DAILY 1 tablet DAILY (route: oral) Med Classific ation: Cardiovas cular Therapy Agents Tradjenta 5 mg tablet 11-12 00:00: 00 Yes [id number] DIABETES 1 tablet DAILY 1 tablet DAILY (route: oral) Med Classific ation: Endocrine nitroglycer in 0.3 mg sublingual tablet 11-12 00:00: 00 Yes [id number] NEEDED FOR CHEST PAIN 1 tablet EVERY 5 MINUTES TIMES 3 1 tablet EVERY 5 MINUTES TIMES 3 (route: sublingual ) Med Classific ation: Cardiovas cular Therapy Agents glimepiride 1 mg tablet 12-13 00:00: 00 Yes [id number] DIABETES 1 mg 2 TIMES DAILY 1 mg 2 TIMES DAILY (route: oral) Alternate Route: BY MOUTH. Med Classific ation: Endocrine Gvoke 1 mg/0.2 mL subcutaneou s solution 12-13 00:00: 00 Yes [id number] LOW BLOOD SUGAR Per instruc tions NEEDED Per instructio ns NEEDED (route: subcutaneo us) Alternate Route: SUBCUTANE OUS. Med Classific ation: Endocrine phenazopyri dine 200 mg tablet 12-21 00:00: 00 Yes [id number] URINARY PAIN 200 mg 3 TIMES DAILY [...] SAVANNAH DUENAS RN TO OBSERVE AND ASSESS, TOWBOAT PILOT/PROMOTIONS PRODUCER TO OBSERVE FOR RISK FOR FALLS AND INSTRUCT IN FALL PREVENTION, HOME SAFETY, MEDICATION MANAGEMENT, INFECTION PREVENTION, AND NUTRITION MANAGEMENT. RN/TOWBOAT PILOT/PROMOTIONS PRODUCER NURSE MAY PERFORM O2 SATURATION LEVEL ON ADMISSION AND PRN FOR EVERY VISIT FOR RN TO ASSESS/TOWBOAT PILOT TO OBSERVE PATIENT, WITH NOTIFICATION TO THE PHYSICIAN IF SATURATION IS 90% IN THE ABSENCE OF MORE SPECIFIC PARAMETERS FROM THE PHYSICIAN. AGENCY MAY PERFORM A RESUMPTION OF CARE VISIT FOLLOWING ANY HOSPITAL ADMISSION. RN/TOWBOAT PILOT/PROMOTIONS PRODUCER TO MONITOR CO-MORBID CONDITIONS LISTED ON THE PLAN OF CARE AND ANY NEW CONDITIONS THAT PRESENT THEMSELVES DURING THIS EPISODE TO IDENTIFY CHANGES AND INTERVENE TO MINIMIZE COMPLICATIONS. [code = RN TO OBSERVE, ASSESS, EVALUATE, AND DEVELOP AN INDIVIDUALIZED PLAN OF CARE. AGENCY MAY ACCEPT ORDERS FROM CONSULTING PHYSICIANS DR SAVANNAH DUENAS RN TO OBSERVE AND ASSESS, TOWBOAT PILOT/PROMOTIONS PRODUCER TO OBSERVE FOR RISK FOR FALLS AND INSTRUCT IN FALL PREVENTION, HOME SAFETY, MEDICATION MANAGEMENT, INFECTION PREVENTION, AND NUTRITION MANAGEMENT. RN/TOWBOAT PILOT/PROMOTIONS PRODUCER NURSE MAY PERFORM O2 SATURATION LEVEL ON ADMISSION AND PRN FOR EVERY VISIT FOR RN TO ASSESS/TOWBOAT PILOT TO OBSERVE PATIENT, WITH NOTIFICATION TO THE PHYSICIAN IF SATURATION IS 90% IN THE ABSENCE OF MORE SPECIFIC PARAMETERS FROM THE PHYSICIAN. AGENCY MAY PERFORM A RESUMPTION OF CARE VISIT FOLLOWING ANY HOSPITAL ADMISSION. RN/TOWBOAT PILOT/PROMOTIONS PRODUCER TO MONITOR CO-MORBID CONDITIONS LISTED ON THE PLAN OF CARE AND ANY NEW CONDITIONS THAT PRESENT THEMSELVES DURING THIS EPISODE TO IDENTIFY CHANGES AND INTERVENE TO MINIMIZE COMPLICATIONS.] Future Scheduled Test MEDICATION MANAGEMENT; RN/TOWBOAT PILOT/PROMOTIONS PRODUCER TO REVIEW MEDICATIONS FOR INTERACTIONS, EFFECTIVENESS OF DRUG THERAPY, AND SIGNS/SYMPTOMS OF ADVERSE REACTIONS. MAY INSTRUCT AND REINFORCE MEDICATION TEACHING RELATED TO THE USE OF MEDICATIONS, DOSAGE, FREQUENCY, PURPOSE, SIDE EFFECTS, AND TO REPORT COMPLICATIONS. [code = MEDICATION MANAGEMENT; RN/TOWBOAT PILOT/PROMOTIONS PRODUCER TO REVIEW MEDICATIONS FOR INTERACTIONS, EFFECTIVENESS OF DRUG THERAPY, AND SIGNS/SYMPTOMS OF ADVERSE REACTIONS. MAY INSTRUCT AND REINFORCE MEDICATION TEACHING RELATED TO THE USE OF MEDICATIONS, DOSAGE, FREQUENCY, PURPOSE, SIDE EFFECTS, AND TO REPORT COMPLICATIONS.] Future Scheduled Test ANTITHROMB OTIC MANAGEMENT; RN TO ASSESS AND TEACH, TOWBOAT PILOT/PROMOTIONS PRODUCER TO OBSERVE/TEACH/MONITOR EFFECTIVENESS OF ANTITHROMBOTIC THERAPY. RN/TOWBOAT PILOT/PROMOTIONS PRODUCER TO INSTRUCT ON SIGNS AND SYMPTOMS OF BLEEDING/ADVERSE REACTIONS TO REPORT TO PHYSICIAN. PATIENT PRESCRIBED BRILINTA [code = ANTITHROMBOTIC MANAGEMENT; RN TO ASSESS AND TEACH, TOWBOAT PILOT/PROMOTIONS PRODUCER TO OBSERVE/TEACH/MONITOR EFFECTIVENESS OF ANTITHROMBOTIC THERAPY. RN/TOWBOAT PILOT/PROMOTIONS PRODUCER TO INSTRUCT ON SIGNS AND SYMPTOMS OF BLEEDING/ADVERSE REACTIONS TO REPORT TO PHYSICIAN. PATIENT PRESCRIBED BRILINTA] Future Scheduled Test RISK FOR H OSPITALIZATION; RN TO ASSESS/TEACH, PROMOTIONS PRODUCER/TOWBOAT PILOT TO OBSERVE/TEACH PATIENT/CAREGIVER ON RISK FOR HOSPITALIZATION/EMERGENCY ROOM VISITS, TEACH SIGNS AND SYMPTOMS THAT PUT PATIENT AT RISK, WHEN TO NOTIFY NURSE/PHYSICIAN OF COMPLICATIONS/DECLINE, AND WHEN TO CALL 911. [code = RISK FOR HOSPITALIZATION; RN TO ASSESS/TEACH, PROMOTIONS PRODUCER/TOWBOAT PILOT TO OBSERVE/TEACH PATIENT/CAREGIVER ON RISK FOR HOSPITALIZATION/EMERGENCY ROOM VISITS, TEACH SIGNS AND SYMPTOMS THAT PUT PATIENT AT RISK, WHEN TO NOTIFY NURSE/PHYSICIAN OF COMPLICATIONS/DECLINE, AND WHEN TO CALL 911.] Future Scheduled Test CARDIOVASC ULAR SYSTEM; RN TO ASSESS/TEACH, TOWBOAT PILOT/PROMOTIONS PRODUCER TO OBSERVE/TEACH RELATED TO ALTERED CARDIOVASCULAR STATUS TO MINIMIZE COMPLICATIONS AND REDUCE HOSPITALIZATION. [code = CARDIOVASCULAR SYSTEM; RN TO ASSESS/TEACH, TOWBOAT PILOT/PROMOTIONS PRODUCER TO OBSERVE/TEACH RELATED TO ALTERED CARDIOVASCULAR STATUS TO MINIMIZE COMPLICATIONS AND REDUCE HOSPITALIZATION.] Future Scheduled Test HYPERTENSI ON MANAGEMENT; RN TO ASSESS AND TEACH, TOWBOAT PILOT/PROMOTIONS PRODUCER TO OBSERVE AND TEACH WARNING SIGNS AND SYMPTOMS TO AVOID HOSPITALIZATION. [code = HYPERTENSION MANAGEMENT; RN TO ASSESS AND TEACH, TOWBOAT PILOT/PROMOTIONS PRODUCER TO OBSERVE AND TEACH WARNING SIGNS AND SYMPTOMS TO AVOID HOSPITALIZATION.] Future Scheduled Test RN/TOWBOAT PILOT/PROMOTIONS PRODUCER TO PERFORM/TEACH INCISION CARE TO AREA: UPPER ABDOMINAL AREA CLOSED WITH GLUE PATIENT MAY SHOWER. LEAVE OPEN TO AIR. DO NOT APPLY LOTION TO GLUE. [code = RN/TOWBOAT PILOT/PROMOTIONS PRODUCER TO PERFORM/TEACH INCISION CARE TO AREA: UPPER ABDOMINAL AREA CLOSED WITH GLUE PATIENT MAY SHOWER. LEAVE OPEN TO AIR. DO NOT APPLY LOTION TO GLUE.] Future Scheduled Test WOUND MOLE CULAR TESTING PROTOCOL UP TO 3 PRN RN/TOWBOAT PILOT VISITS MAY BE PERFORMED FOR S/S OF WOUND INFECTION/DETERIORATION/STAGNATION. RN TO ASSESS, TOWBOAT PILOT/PROMOTIONS PRODUCER TO OBSERVE AND INITIATE PROTOCOL. RN/TOWBOAT PILOT/PROMOTIONS PRODUCER TO INSTRUCT PATIENT AND/OR CAREGIVER ON S/S OF WOUND INFECTION/DETERIORATION/STAGNATION TO REPORT TO NURSE IF NEW OR WORSENING SYMPTOMS. RN/TOWBOAT PILOT/PROMOTIONS PRODUCER TO OBTAIN MOLECULAR WOUND TESTING VIA SWAB COLLECTION PER POLICY. [id number] NOTIFY PROVIDER OF RESULTS AND OBTAIN FURTHER ORDERS. [code = WOUND MOLECULAR TESTING PROTOCOL UP TO 3 PRN RN/TOWBOAT PILOT VISITS MAY BE PERFORMED FOR S/S OF WOUND INFECTION/DETERIORATION/STAGNATION. RN TO ASSESS, TOWBOAT PILOT/PROMOTIONS PRODUCER TO OBSERVE AND INITIATE PROTOCOL. RN/TOWBOAT PILOT/PROMOTIONS PRODUCER TO INSTRUCT PATIENT AND/OR CAREGIVER ON S/S OF WOUND INFECTION/DETERIORATION/STAGNATION TO REPORT TO NURSE IF NEW OR WORSENING SYMPTOMS. RN/TOWBOAT PILOT/PROMOTIONS PRODUCER TO OBTAIN MOLECULAR WOUND TESTING VIA SWAB COLLECTION PER POLICY. [id number] NOTIFY PROVIDER OF RESULTS AND OBTAIN FURTHER ORDERS.] Future Scheduled Test DIABETES M ANAGEMENT; RN TO ASSESS AND TEACH, PROMOTIONS PRODUCER/TOWBOAT PILOT TO OBSERVE AND TEACH INSTRUCTIONS OF DIABETIC CARE TO INCLUDE: DIET DIABETIC SKIN CARE, SIGNS AND SYMPTOMS OF HYPO/HYPERGLYCEMIA, PROPER ADMINISTRATION OF DIABETIC MEDICATION. RN/PROMOTIONS PRODUCER/TOWBOAT PILOT TO INSTRUCT ON DIABETIC FOOT CARE AND MONITOR FOR SKIN LESIONS ON LOWER EXTREMITIES. BLOOD GLUCOSE TESTING PRN RN TO ASSESS AND TEACH, PROMOTIONS PRODUCER/TOWBOAT PILOT TO OBSERVE AND TEACH PATIENT/CAREGIVER ABILITY TO PERFORM AND RECORD BLOOD GLUCOSE TESTING ORDERED AND TO REPORT ABNORMAL FINDINGS TO PHYSICIAN. RN/PROMOTIONS PRODUCER/TOWBOAT PILOT MAY PERFORM BLOOD GLUCOSE TEST NEEDED. RN/PROMOTIONS PRODUCER/TOWBOAT PILOT TO REPORT TO PHYSICIAN BLOOD GLUCOSE READINGS GREATER THAN 300 OR LESS THAN 70 RN/PROMOTIONS PRODUCER/TOWBOAT PILOT TO INSTRUCT PATIENT ON IMPORTANCE OF HGBA1C MONITORING, KIDNEY FUNCTION TEST, EYE AND FOOT EXAMS. [code = DIABETES MANAGEMENT; RN TO ASSESS AND TEACH, PROMOTIONS PRODUCER/TOWBOAT PILOT TO OBSERVE AND TEACH INSTRUCTIONS OF DIABETIC CARE TO INCLUDE: DIET DIABETIC SKIN CARE, SIGNS AND SYMPTOMS OF HYPO/HYPERGLYCEMIA, PROPER ADMINISTRATION OF DIABETIC MEDICATION. RN/PROMOTIONS PRODUCER/TOWBOAT PILOT TO INSTRUCT ON DIABETIC FOOT CARE AND MONITOR FOR SKIN LESIONS ON LOWER EXTREMITIES. BLOOD GLUCOSE TESTING PRN RN TO ASSESS AND TEACH, PROMOTIONS PRODUCER/TOWBOAT PILOT TO OBSERVE AND TEACH PATIENT/CAREGIVER ABILITY TO PERFORM AND RECORD BLOOD GLUCOSE TESTING ORDERED AND TO REPORT ABNORMAL FINDINGS TO PHYSICIAN. RN/PROMOTIONS PRODUCER/TOWBOAT PILOT MAY PERFORM BLOOD GLUCOSE TEST NEEDED. RN/PROMOTIONS PRODUCER/TOWBOAT PILOT TO REPORT TO PHYSICIAN BLOOD GLUCOSE READINGS GREATER THAN 300 OR LESS THAN 70 RN/PROMOTIONS PRODUCER/TOWBOAT PILOT TO INSTRUCT PATIENT ON IMPORTANCE OF HGBA1C MONITORING, KIDNEY FUNCTION TEST, EYE AND FOOT EXAMS.] Future Scheduled Test GENITOURIN KEZIA MANAGEMENT; RN TO ASSESS AND TEACH, TOWBOAT PILOT/PROMOTIONS PRODUCER TO OBSERVE AND TEACH RELATED TO ALTERED GENITOURINARY STATUS TO MINIMIZE COMPLICATIONS AND REDUCE HOSPITALIZATION. [code = GENITOURINARY MANAGEMENT; RN TO ASSESS AND TEACH, TOWBOAT PILOT/PROMOTIONS PRODUCER TO OBSERVE AND TEACH RELATED TO ALTERED GENITOURINARY STATUS TO MINIMIZE COMPLICATIONS AND REDUCE HOSPITALIZATION.] Future Scheduled Test URINARY CU LTURE AND SENSITIVITY PROTOCOL UP TO 2 PRN RN/TOWBOAT PILOT/PROMOTIONS PRODUCER VISITS MAY BE PERFORMED FOR S/S OF UTI. RN TO ASSESS, TOWBOAT PILOT/PROMOTIONS PRODUCER TO OBSERVE INITIATION OF UTI PROTOCOL. RN/PROMOTIONS PRODUCER/TOWBOAT PILOT TO INSTRUCT PATIENT AND/OR CAREGIVER ON S/S OF UTI TO REPORT TO RN/TOWBOAT PILOT/PROMOTIONS PRODUCER IF NEW OR WORSENING SYMPTOMS. DRINK PLENTY OF WATER THROUGHOUT THE DAY TO MAINTAIN HYDRATION (UNLESS CONTRAINDICATED.) URINATE WHEN THE URGE IS FELT, DO NOT WAIT. WASH GENITALS DAILY. WIPE FROM FRONT TO BACK AFTER HAVING A BOWEL MOVEMENT. RN/PROMOTIONS PRODUCER/TOWBOAT PILOT TO OBTAIN UA WITH C/S VIA CLEAN CATCH URINE AND IF UNABLE TO OBTAIN MAY PERFORM AN IN AND OUT CATH. IF PATIENT HAS INDWELLING CATHETER MAY OBTAIN FROM SAMPLING PORT. NOTIFY PROVIDER OF RESULTS AND OBTAIN FURTHER ORDERS. [code = URINARY CULTURE AND SENSITIVITY PROTOCOL UP TO 2 PRN RN/TOWBOAT PILOT/PROMOTIONS PRODUCER VISITS MAY BE PERFORMED FOR S/S OF UTI. RN TO ASSESS, TOWBOAT PILOT/PROMOTIONS PRODUCER TO OBSERVE INITIATION OF UTI PROTOCOL. RN/PROMOTIONS PRODUCER/TOWBOAT PILOT TO INSTRUCT PATIENT AND/OR CAREGIVER ON S/S OF UTI TO REPORT TO RN/TOWBOAT PILOT/PROMOTIONS PRODUCER IF NEW OR WORSENING SYMPTOMS. DRINK PLENTY OF WATER THROUGHOUT THE DAY TO MAINTAIN HYDRATION (UNLESS CONTRAINDICATED.) URINATE WHEN THE URGE IS FELT, DO NOT WAIT. WASH GENITALS DAILY. WIPE FROM FRONT TO BACK AFTER HAVING A BOWEL MOVEMENT. RN/PROMOTIONS PRODUCER/TOWBOAT PILOT TO OBTAIN UA WITH C/S VIA CLEAN CATCH URINE AND IF UNABLE TO OBTAIN MAY PERFORM AN IN AND OUT CATH. IF PATIENT HAS INDWELLING CATHETER MAY OBTAIN FROM SAMPLING PORT. NOTIFY PROVIDER OF RESULTS AND OBTAIN FURTHER ORDERS.] Future Scheduled Test URINARY IN CONTINENCE MANAGEMENT; RN TO ASSESS AND TEACH, TOWBOAT PILOT/LVNTO OBSERVE AND TEACH MANAGEMENT OF URINARY INCONTINENCE. TEACH/INSTRUCT ON PREVENTING INFECTION AND SKIN BREAKDOWN. RN/TOWBOAT PILOT/PROMOTIONS PRODUCER MAY INSTRUCT IN BLADDER TRAINING PROGRAM INDICATED. [code = URINARY INCONTINENCE MANAGEMENT; RN TO ASSESS AND TEACH, TOWBOAT PILOT/LVNTO OBSERVE AND TEACH MANAGEMENT OF URINARY INCONTINENCE. TEACH/INSTRUCT ON PREVENTING INFECTION AND SKIN BREAKDOWN. RN/TOWBOAT PILOT/PROMOTIONS PRODUCER MAY INSTRUCT IN BLADDER TRAINING PROGRAM INDICATED.] Future Scheduled Test URINARY MO LECULAR TESTING PROTOCOL UP TO 2 PRN RN/TOWBOAT PILOT/PROMOTIONS PRODUCER VISITS MAY BE PERFORMED FOR S/S OF UTI. RN TO ASSESS, TOWBOAT PILOT/PROMOTIONS PRODUCER TO OBSERVE INITIATION OF UTI PROTOCOL. RN/PROMOTIONS PRODUCER/TOWBOAT PILOT TO INSTRUCT PATIENT AND/OR CAREGIVER ON S/S OF UTI TO REPORT TO RN/PROMOTIONS PRODUCER/TOWBOAT PILOT IF NEW OR WORSENING SYMPTOMS. DRINK PLENTY OF WATER THROUGHOUT THE DAY TO MAINTAIN HYDRATION (UNLESS CONTRAINDICATED.) URINATE WHEN THE URGE IS FELT, DO NOT WAIT. WASH GENITALS DAILY. WIPE FROM FRONT TO BACK AFTER HAVING A BOWEL MOVEMENT. RN/PROMOTIONS PRODUCER/TOWBOAT PILOT TO OBTAIN MOLECULAR URINE TESTING BY OPTION 1 OR OPTION 2 (OPTION 1) RN/PROMOTIONS PRODUCER/TOWBOAT PILOT TO OBTAIN U/A WITH REFLEX TO UTI PANEL (MOLECULAR) VIA CLEAN CATCH URINE AND IF UNABLE TO OBTAIN MAY PERFORM AN IN AND OUT CATH. IF PATIENT HAS INDWELLING CATHETER MAY OBTAIN FROM SAMPLING PORT. (OPTION 2) RN/PROMOTIONS PRODUCER/TOWBOAT PILOT TO OBTAIN UTI PANEL (MOLECULAR) VIA SWAB COLLECTION METHOD FROM ADULT BRIEF/DIAPER OR PAD IF PATIENT IS INCONTINENT. NOTIFY PROVIDER OF RESULTS AND OBTAIN FURTHER ORDERS. [code = URINARY MOLECULAR TESTING PROTOCOL UP TO 2 PRN RN/TOWBOAT PILOT/PROMOTIONS PRODUCER VISITS MAY BE PERFORMED FOR S/S OF UTI. RN TO ASSESS, TOWBOAT PILOT/PROMOTIONS PRODUCER TO OBSERVE INITIATION OF UTI PROTOCOL. RN/PROMOTIONS PRODUCER/TOWBOAT PILOT TO INSTRUCT PATIENT AND/OR CAREGIVER ON S/S OF UTI TO REPORT TO RN/PROMOTIONS PRODUCER/TOWBOAT PILOT IF NEW OR WORSENING SYMPTOMS. DRINK PLENTY OF WATER THROUGHOUT THE DAY TO MAINTAIN HYDRATION (UNLESS CONTRAINDICATED.) URINATE WHEN THE URGE IS FELT, DO NOT WAIT. WASH GENITALS DAILY. WIPE FROM FRONT TO BACK AFTER HAVING A BOWEL MOVEMENT. RN/PROMOTIONS PRODUCER/TOWBOAT PILOT TO OBTAIN MOLECULAR URINE TESTING BY OPTION 1 OR OPTION 2 (OPTION 1) RN/PROMOTIONS PRODUCER/TOWBOAT PILOT TO OBTAIN U/A WITH REFLEX TO UTI PANEL (MOLECULAR) VIA CLEAN CATCH URINE AND IF UNABLE TO OBTAIN MAY PERFORM AN IN AND OUT CATH. IF PATIENT HAS INDWELLING CATHETER MAY OBTAIN FROM SAMPLING PORT. (OPTION 2) RN/PROMOTIONS PRODUCER/TOWBOAT PILOT TO OBTAIN UTI PANEL (MOLECULAR) VIA SWAB COLLECTION METHOD FROM ADULT BRIEF/DIAPER OR PAD IF PATIENT IS INCONTINENT. NOTIFY PROVIDER OF RESULTS AND OBTAIN FURTHER ORDERS.] Future Scheduled Test PRN VISITS ; NUMBER OF RN/TOWBOAT PILOT/PROMOTIONS PRODUCER VISITS: 1 RN/TOWBOAT PILOT/PROMOTIONS PRODUCER TO PERFORM: SURGICAL INCISION MANAGEMENT FOR THE FOLLOWING REASONS: COMPLICATIONS [code = PRN VISITS; NUMBER OF RN/TOWBOAT PILOT/PROMOTIONS PRODUCER VISITS: 1 RN/TOWBOAT PILOT/PROMOTIONS PRODUCER TO PERFORM: SURGICAL INCISION MANAGEMENT FOR THE FOLLOWING REASONS: COMPLICATIONS ] Future Scheduled Test FALL REDUC TION MANAGEMENT; RN TO ASSESS AND OBSERVE, TOWBOAT PILOT/PROMOTIONS PRODUCER TO OBSERVE FALL RISK FACTORS AND EDUCATE PATIENT/CAREGIVER ON STRATEGIES TO MINIMIZE THE RISK OF FALLING. [code = FALL REDUCTION MANAGEMENT; RN TO ASSESS AND OBSERVE, TOWBOAT PILOT/PROMOTIONS PRODUCER TO OBSERVE FALL RISK FACTORS AND EDUCATE PATIENT/CAREGIVER ON STRATEGIES TO MINIMIZE THE RISK OF FALLING.] Future Scheduled Test CANCER MAN AGEMENT; RN TO ASSESS AND TEACH, PROMOTIONS PRODUCER/TOWBOAT PILOT TO OBSERVE AND TEACH AND PROVIDE EDUCATION ON CANCER. [code = CANCER MANAGEMENT; RN TO ASSESS AND TEACH, PROMOTIONS PRODUCER/TOWBOAT PILOT TO OBSERVE AND TEACH AND PROVIDE EDUCATION ON CANCER.] Future Scheduled Test PAIN MANAG EMENT; RN TO ASSESS AND TEACH, PROMOTIONS PRODUCER/TOWBOAT PILOT TO OBSERVE AND TEACH AND PROVIDE EDUCATION ON PAIN MANAGEMENT TECHNIQUES. [code = PAIN MANAGEMENT; RN TO ASSESS AND TEACH, PROMOTIONS PRODUCER/TOWBOAT PILOT TO OBSERVE AND TEACH AND PROVIDE EDUCATION [...] End Date/Time Encounter Type Admission Type Attending [facility] Care Department Encounter ID Discharge Date Discharge Status Discharge Condition Discharge Reason Percent Goals Met 2025-01-13 00:00:00 2025-03-13 00:00:00 Outpatient [facility] [id number] 30.00
== END 2025-02-08 13:09 | disposition home or self-care (01) ==
PROVIDERS: PCP Family Medicine; Visit Provider Physician Assistant Medical
DX: J20.9 Acute bronchitis, unspecified (principal)
CPT/HCPCS: 71046

== ENCOUNTER 2025-03-14 09:52 | Day surgery (SDC) | payer MEDICARE, SELFPAY ==
[2024-10-11 10:30] VITALS: BMI 26.4
--- NOTE | ~2025-03-14 | XR_ITS ---
XR fluoroscopy no charge Indication:Bilateral L3, L4 and L5 medial branch/dorsal nerve block TECHNIQUE: Fluoroscopy used during Bilateral L3, L4 and L5 medial branch/dorsal nerve block performe d by [Derek Jamil MD] on 03/14/2025. 24 seconds of fluoroscopy with 15 fluoroscopic images ca ptured. FINDINGS: Correlate with procedure note. IMPRESSION: Fluoroscopy used during Bilateral L3, L4 and L5 medial branch/dorsal nerve block. Reviewed, dictated and finalized at location B. IMPRESSION: Fluoroscopy used during Bilateral L3, L4 and L5 medial branch/dorsa l nerve block.
--- NOTE | 2025-03-14 09:29 | WPDHPUPDATE1 ---
History and Physical Update Update Date/Time: 03/14/25 09:29 History and Physical has been reviewed, including an updated exam of the patient. There are NO changes in the patient's condition. Risks, benefits, and alternatives have been discussed and questions answered. Patient agrees to proceed with procedure.
--- NOTE | 2025-03-14 09:30 | W.PM.PROC2 ---
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 Post-op Diagnosis Same Procedure Performed Diagnostic bilateral Lumbar Medial Branch/Dorsal Ramus Blocks at L3, L4, L5 Treating the bilateral L4-5, L5-S1 Facet Joints Under Fluoroscopic Guidance and with Contrast Control. (4 levels blocked). Surgeon Derek Jamil MD Human Resources Assistant None. Anesthesia Local Description of Procedure INFORMED CONSENT: Risks, benefits and alternatives to the procedure were discussed in detail with the patient who expressed explicit understanding and consent to proceed. Patient was informed verbally and in written form regarding the risks associated with the procedure including the low risk of serious infection, bleeding/bruising, allergic reaction, nerve or organ injury, paralysis, procedural site pain or discomfort, worsening pain and/or mobility, failure to treat and/or disfigurement. The patient expressed explicit understanding and consent to proceed. All materials required for the procedure were available prior to procedure start. Site and side were marked prior to procedure and confirmed in the presence of the patient. PROCEDURE IN DETAIL: The patient was brought to the procedural suite and placed in the prone position. Patient was made comfortable with use of pillows under the head/chest, hips and ankles. Skin overlying the injection site on the affected side(s) was prepared broadly with ChloraPrep applicator and draped in a sterile manner. Aseptic technique was used throughout. The endplates of the vertebral bodies at the site(s) of interest were aligned in the AP view. Ipsilateral oblique angulation was utilized to optimize visualization of the intersection between the superior articulating process and transverse process at each target site. Local anesthesia was established by infiltration with approximately 5 mL of 1% lidocaine via a 1-1/2 inch 27-gauge needle. A 25-gauge 3.5 inch Quincke spinal needle was advanced until the needle tip contacted periosteum at the target site, right L3. Lateral view was utilized to confirm the appropriate placement of the needle tip just anterior to the facet line and superior to the pedicle. In the Lateral view, 0.25 mL of Omnipaque 300 contrast medium was injected after negative aspiration for CSF, blood or other bodily fluid, showing appropriate extra-articular spread of contrast without evidence of intravascular, foraminal or intrathecal placement. A 0.5 mL solution of 0.5% PF bupivacaine was injected after negative repeat aspiration. Appropriate spread of the injectate was confirmed with washout of previously injected contrast. No parasthesias were elicited. Needle was removed completely intact without difficulty. The same exact procedure was repeated for all remaining levels on the ipsilateral side, right L4, L5 medial branches/dorsal ramus, modified as necessary to accommodate for the new target location with identical findings and results and no evidence of complication. The same exact procedure was repeated for all remaining levels on the contralateral side, left L3, L4, L5 medial branches/dorsal ramus, modified as necessary to accommodate for the new target location with identical findings and results and no evidence of complication. Images were saved and documented in the patient chart. Patient's skin was cleaned and sterile bandage applied. The patient tolerated the procedure well. The patient was transported to the recovery area in stable condition where they were observed for an appropriate amount of time prior to discharge, without evidence of complication. Patient was instructed on the appropriate completion of a pain diary over the next 12-24 hours. The patient was instructed to avoid excessive activity for the next 48 hours, including climbing and frequent use of stairs. Showers only for 48 hours. They were instructed not to drive or operate heavy machinery for 24 hours. They are to monitor for severe headaches, fevers, chills, night sweats, erythema/swelling at the site or any other signs of infection, bleeding/bruising, bowel or bladder changes as well as new pain, weakness or numbness in the upper or lower extremity. Should they notice these changes, they are instructed to call our office immediately or report directly to the nearest Emergency Department if no answer or if after posted office hours. COMPLICATIONS: None COMMENTS: None CONTRAST WASTED: 28.5mL Omnipaque 300. Complications No immediate complications Condition Stable Disposition Same day [facility] Billing Surgery - Charge Forward: Surgery Billing
--- OUTSIDE RECORDS SUMMARY | 2025-03-14 10:04 | XMS_ITS | Clinical Summary ---
Author Organization [facility] Address [address] [place] [address] Phone Care Team Providers Care Lute Packer Or Applier Name Role Phone Fuentes Orellana MD Primary Care Provider [phone] Allergies No known active allergies Medications pantoprazole [...] 00 ZOSTER VACCINE (1 of 2) 1999 RSV VACCINE (60+ or ) (1 - 1-dose 75+ series) 2024 INFLUENZA VACCINE (#1) 2025 06/15/2018 Medical Devices Implanted Type Area Automatic Spinning Lathe Operator Device Identifier Shelf Expiration Date Model / Serial / Lot Ams 800 Urinary Control System(Penile Implant) Description:MRI conditional for 3T or less -danisha 01/04/19 Insurance MEDICARE PART A AND B [facility] [id number] Care Teams Lute Packer Or Applier Relationship Specialty Start Date End Date Fuentes Orellana MD [address] [place] [address] PCP - General Family Practice 01/04/19
--- OUTSIDE RECORDS SUMMARY | 2025-03-14 10:04 | XMS_ITS | Clinical Summary ---
Author Organization [facility] Address [address] [place] [address] Care Team Providers Care Electric Organ Checker Name Role Phone Fuentes Orellana MD Primary Care Provider Allergies No known active allergies Medications amLODIPine [...] 2:12 PM CDT Height 167.6 cm (5' 6) 11/29/2022 2:12 PM CDT Body Mass Index [...] age to complete this topic Insurance MEDICARE [facility] Care Teams Electric Organ Checker Relationship Specialty Start Date End Date Fuentes Orellana MD [address] [place] [id number] PCP - General FAMILY PRACTICE 11/29/22
--- OUTSIDE RECORDS SUMMARY | 2025-03-14 10:04 | XMS_ITS | Encounter Summary ---
Author Organization [facility] Address [address] [place] [address] Phone Care Team Providers Care Stabilizer Operator Name Role Phone Fuentes Orellana MD Primary Care Provider Brent Dickinson DO Unavailable [phone] Faviola Jiménez RUBBER BALL FINISHER, BAGGAGE HANDLING SUPERVISOR Unavailable Shawnee Mckinney MD Unavailable Chicho Clayton MD Unavailable Lai Lambert RUBBER BALL FINISHER, BAGGAGE HANDLING SUPERVISOR Unavailable Kami Meneses MD Unavailable [phone] Anette Bond MD Unavailable [phone] Kay Gordon RUBBER BALL FINISHER, BAGGAGE HANDLING SUPERVISOR Unavailable Kami Meneses MD Unavailable [phone] Kami Meneses MD Unavailable [phone] Kami Meneses MD Unavailable [phone] Reason for Visit * Reason Comments Medication Refill Encounter Details Date Type Department Care Team (Late st Contact Info) Description 11/12/2022 Refill [facility] - Gastroenterology [facility] [address] [place] [address] Ingrid Mccloud [place], PAC [address] [place] [address] Medication Refill Social History Tobacco Use Types [...] 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 on file Not on file Not [...] documented in this encounter Plan of Treatment Not on file documented as of this encounter Visit Diagnoses Not on filedocumented in this encounter Care Teams Stabilizer Operator Relationship Specialty Start Date End Date Fuentes Orellana MD [address] [place] [address] PCP - General Family Medicine 11/6/15 Brent Dickinson DO [address] [place] [address] Gastroenterology 06/27/16 Faviola Jiménez APRN, BAGGAGE HANDLING SUPERVISOR [address] [place] [address] Nurse Practitioner Advanced Practice Nurse 07/22/16 Shawnee Mckinney MD [address] [facility] [address] [place] [address] Urologist Urology 06/07/19 Chicho Clayton MD [address] [facility] [address] [place] [address] Oncology 06/13/19 Lai Lambert APRN, BAGGAGE HANDLING SUPERVISOR [address] [place] [address] Nurse Practitioner Advanced Practice Nurse 02/10/23 Kami Meneses MD #[address] [address] Consulting Physician Urology 06/16/23 Anette Bond MD [address] [place] [address] Consulting Physician Gastroenterology 12/25/22 Kay Gordon APRN, BAGGAGE HANDLING SUPERVISOR [address] [place] [address] Nurse Practitioner Advanced Practice Nurse 06/16/24 Kami Meneses MD [address], [facility] [address] [place] [address] Consulting Physician Urology 08/19/24 Kami Meneses MD [address], [facility] [address] [place] [address] Consulting Physician Urology 01/06/25 Kami Meneses MD [address], [facility] [address] [place] [address] Consulting Physician Urology 03/08/25 documented as of this encounter
--- OUTSIDE RECORDS SUMMARY | 2025-03-14 10:04 | XMS_ITS | Encounter Summary ---
Author Organization [facility] Address [address] [place] [address] Phone Care Team Providers Care Entry Level Accountant Name Role Phone Fuentes Orellana MD Primary Care Provider Brent Dickinson DO Unavailable [phone] Faviola Jiménez APPRENTICE PAINTER HAND, SATELLITE DISH TECHNICIAN Unavailable Shawnee Mckinney MD Unavailable Chicho Clayton MD Unavailable Lai Lambert APPRENTICE PAINTER HAND, SATELLITE DISH TECHNICIAN Unavailable Kami Meneses MD Unavailable [phone] Anette Bond MD Unavailable [phone] Kay Gordon APPRENTICE PAINTER HAND, SATELLITE DISH TECHNICIAN Unavailable Kami Meneses MD Unavailable [phone] Kami Meneses MD Unavailable [phone] Kami Meneses MD Unavailable [phone] Reason for Visit * Reason Comments Medication Refill Encounter Details Date Type Department Care Team (Late st Contact Info) Description 10/15/2021 Refill [facility] - Gastroenterology [facility] [address] [place] [address] Ingrid Mccloud Ashley, PAC [address] [place] [address] Medication Refill Social History Tobacco Use Types [...] 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 RAL ARRANGEMENT DIRECTOR documented in this encounter Plan of Treatment Not on file documented as of this encounter Visit Diagnoses Not on filedocumented in this encounter Care Teams Entry Level Accountant Relationship Specialty Start Date End Date Fuentes Orellana MD [address] [address] PCP - General Family Medicine 07/06/15 Brent Dickinson DO [address] [address] Gastroenterology 06/27/16 Faviola Jiménez, APPRENTICE PAINTER HAND, SATELLITE DISH TECHNICIAN [address] [address] Nurse Practitioner Advanced Practice Nurse 07/22/16 Shawnee Mckinney MD [address] [facility] [address] [place] [address] Urologist Urology 06/07/19 Chicho Clayton MD [address] [place] [address] Oncology 06/13/19 Lai Lambert APRN, SATELLITE DISH TECHNICIAN [address] [place] [address] Nurse Practitioner Advanced Practice Nurse 02/10/23 Kami Meneses MD #[address] [address] Consulting Physician Urology 06/16/23 Anette Bond MD [address] [place] [address] Consulting Physician Gastroenterology 12/25/22 Kay Gordon APRN, SATELLITE DISH TECHNICIAN [address] [place] [address] Nurse Practitioner Advanced Practice Nurse 06/16/24 Kami Meneses MD [address] [facility] [address] [address] Consulting Physician Urology 08/19/24 Kami Meneses MD [address] [facility] [address] [address] Consulting Physician Urology 01/06/25 Kami Meneses MD [address] [place] [address] Consulting Physician Urology 03/08/25 documented as of this encounter
--- OUTSIDE RECORDS SUMMARY | 2025-03-14 10:04 | XMS_ITS | Encounter Summary ---
Author Organization [facility] Address [address] [place] [address] Phone Care Team Providers Care Spanish Tutor Name Role Phone Fuentes Orellana MD Primary Care Provider [phone] Brent Dickinson DO Unavailable [phone] Faviola Jiménez ROLLER CHECKER, PEDIATRIC PHYSICAL THERAPIST Unavailable Shawnee Mckinney MD Unavailable Chicho Clayton MD Unavailable Lai Lambert ROLLER CHECKER, PEDIATRIC PHYSICAL THERAPIST Unavailable [phone] Kami Meneses MD Unavailable [phone] Anette Bond MD Unavailable [phone] Kay Gordon ROLLER CHECKER, PEDIATRIC PHYSICAL THERAPIST Unavailable Kami Meneses MD Unavailable [phone] Kami Meneses MD Unavailable [phone] Kami Meneses MD Unavailable [phone] Reason for Visit * Reason Comments Medication Refill Encounter Details Date Type Department Care Team (Late st Contact Info) Description 03/25/2021 Refill [facility] - Gastroenterology [facility] [address] [place] [address] Ingrid Mccloud Ashley, PAC [address] [place] [address] Medication Refill Social History Tobacco Use Types [...] Job 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 Date 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 Not on file Not on file Not on cory e documented as of this encounter Miscellaneous Notes * Telephone Encounter - gK Bonilla CMA - 03/25/2021 9:30 AM CDT [...] documented as of this encounter Care Teams Spanish Tutor Relationship Specialty Start Date End Date Fuentes Orellana MD [address] [place] [address] PCP - General Family Medicine 07/06/15 Brent Dickinson DO [address] [address] Gastroenterology 06/27/16 Faviola Jiménez APRN, PEDIATRIC PHYSICAL THERAPIST [address] [facility] [place] [address] Nurse Practitioner Advanced Practice Nurse 07/22/16 Shawnee Mckinney MD [address] [facility] [address] [place] [address] Urologist Urology 06/07/19 Chicho Clayton MD [address] [facility] 7 [place] [address] Oncology 06/13/19 Lai Lambert APRN, PEDIATRIC PHYSICAL THERAPIST [address] [place] [address] Nurse Practitioner Advanced Practice Nurse 02/10/23 Kami Meneses MD #[address] [address] Consulting Physician Urology 06/16/23 Anette Bond MD [address] [place] [address] Consulting Physician Gastroenterology 12/25/22 Kay Gordon APRN, PEDIATRIC PHYSICAL THERAPIST [address] [place] [address] Nurse Practitioner Advanced Practice Nurse 06/16/24 Kami Meneses MD #[address] [address] Consulting Physician Urology 08/19/24 Kami Meneses MD #[address] [address] Consulting Physician Urology 01/06/25 Kami Meneses MD #[address], [address] [address] Consulting Physician Urology 03/08/25 documented as of this encounter
--- OUTSIDE RECORDS SUMMARY | 2025-03-14 10:04 | XMS_ITS | Encounter Summary ---
Author Organization [facility] Address [address] [place] [address] Phone Care Team Providers Care Middle School Band Teacher Name Role Phone Fuentes Orellana MD Primary Care Provider Brent Dickinson DO Unavailable [phone] Faviola Jiménez DICTATING TRANSCRIBING MACHINE SERVICER, SYSTEMS ADMIN Unavailable Shawnee Mckinney MD Unavailable Chicho Clayton MD Unavailable Lai Lambert DICTATING TRANSCRIBING MACHINE SERVICER, SYSTEMS ADMIN Unavailable Kami Meneses MD Unavailable [phone] Anette Bond MD Unavailable [phone] Kay Gordon DICTATING TRANSCRIBING MACHINE SERVICER, SYSTEMS ADMIN Unavailable Kami Meneses MD Unavailable [phone] Kami Meneses MD Unavailable [phone] Kami Meneses MD Unavailable [phone] Encounter Details Date Type Department Care Team (Late st Contact Info) Description 08/22/2024 [facility]phone [facility] [place] [address] Kami Meneses MD [address], [facility] [address] [place] [address] Social History Tobacco Use Types Packs/Day Years [...] 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 IN MAKER * Telephone Encounter - Elidia Dill - 08/29/2024 8:20 AM CST Please see Dr. Otto message. IN MAKER * Telephone Encounter - Kami Meneses MD [...] sphincter. This needs to be done at [facility] [place]. He will need a urine culture 14 days prior to surgery. Hibiclens shower the night before morning of surgery, vancomycin and gentamicin for antibiotics IN MAKER IN MAKER documented in this encounter Plan of Treatment Not on file documented as of this encounter Visit Diagnoses Not on filedocumented in this encounter Care Teams Middle School Band Teacher Relationship Specialty Start Date End Date Fuentes Orellana MD [address] [place] [address] PCP - General Family Medicine 07/06/15 Brent Dickinson DO [address] [place] [address] Gastroenterology 06/27/16 Faviola Jiménez APRN, SYSTEMS ADMIN [address] [place] [address] Nurse Practitioner Advanced Practice Nurse 07/22/16 Shawnee Mckinney MD [address] [facility] [address] [place] [address] Urologist Urology 06/07/19 Chicho Clayton MD [address] [facility] [address] [place] [address] Oncology 06/13/19 Lai Lambert APRN, SYSTEMS ADMIN [address] [place] [address] Nurse Practitioner Advanced Practice Nurse 02/10/23 Kami Meneses MD #[address], [facility] [address] [place] [address] Consulting Physician Urology 06/16/23 Anette Bond MD [address] [place] [address] Consulting Physician Gastroenterology 12/25/22 Kay Gordon APRN, SYSTEMS ADMIN [address] [facility] [facility] [place] [address] Nurse Practitioner Advanced Practice Nurse 06/16/24 Kami Meneses MD [address], [facility] [address] [place] [address] Consulting Physician Urology 08/19/24 Kami Meneses MD #[address], [facility] [address] [place] [address] Consulting Physician Urology 01/06/25 Kami Meneses MD [address], [facility] [address] [place] [address] Consulting Physician Urology 03/08/25 documented as of this encounter
--- OUTSIDE RECORDS SUMMARY | 2025-03-14 10:04 | XMS_ITS | Clinical Summary ---
Author Organization [facility] Address [address], [facility] [address] [place] [address] Phone Care Team Providers Care Hematology Specialist Name Role Phone Fuentes Orellana MD Primary Care Provider [phone] Brent Dickinson DO Unavailable [phone] MAINTENANCE CREW WORKER, SHREDDED FILLER CIGAR MAKER MACHINE Unavailable Shawnee Mckinney MD Unavailable Chicho Clayton MD Unavailable Lai Lambert HIGHWAY MAINTENANCE CREW WORKER, SHREDDED FILLER CIGAR MAKER MACHINE Unavailable [phone] Kami Meneses MD Unavailable [phone] Anette Bond MD Unavailable [phone] MAINTENANCE CREW WORKER, SHREDDED FILLER CIGAR MAKER MACHINE Unavailable Kami Meneses MD Unavailable [phone] Kami Meneses MD Unavailable [phone] Kami Meneses MD Unavailable [phone] Allergies No known active allergies Medications [...] by mouth every 12 hours 5 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 Iron deficiency anemia 02/15/2020 Collagenous colitis 07/22/2016 Gastroesophageal reflux disease 07/22/2016 Hx of colonic polyps 07/22/2016 Encounters Date Type Department Care Team Description 03/10/2025 2:15 PM CDT Office Visit [facility] [address] [place] [address] Kami Meneses MD Stress incontinence (female) (male) (Primary Dx); Prostate cancer (HCC) Discharge Disposition: Discharged to home or Selfcare 03/10/2025 Travel 01/20/2025 10:00 AM CDT Office Visit [facility] [address] [place] [address] Kami Meneses MD UTI symptoms (Primary Dx); Stress incontinence (female) (male); Dysuria Discharge Disposition: Discharged to home or Selfcare 01/20/2025 Travel 01/13/2025 Telephone [facility] [address] [place] [address] Kami Meneses MD 01/10/2025 1:30 PM CDT Office Visit [facility] #2 [place] [address] Kami Meneses MD UTI symptoms (Primary Dx) Discharge Disposition: Discharged to home or Selfcare 01/10/2025 Travel 12/23/2024 9:00 AM CDT Office Visit [facility] #2 [place] [address] Kami Meneses MD UTI symptoms (Primary Dx) Discharge Disposition: Discharged to home or Selfcare 12/23/2024 Travel 12/21/2024 Telephone [facility] #[address] [place] [address] Kami Meneses MD Testicle Pain 12/16/2024 10:45 AM CDT Office Visit [facility] [address]2 [place] [address] Kami Meneses MD Stress incontinence (female) (male) (Primary Dx) Discharge Disposition: Discharged to home or Selfcare 12/16/2024 Telephone [facility] #2 [place] [address] Kami Meneses MD 12/16/2024 Travel from Last [...] Job 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 Not on file Not on cory e Last Filed Vital Signs Vital Sign Reading Time Taken Comments Blood Pressure 121/66 03/10/2025 2:24 PM CDT Pulse 74 03/10/2025 2:24 PM CDT Temperature 36.4 C (97.6 F) 08/10/2024 9:53 AM OXIDATION ENGINEER Respiratory Rate 18 01/20/2025 9:49 AM CDT Oxygen Saturation 99% 03/10/2025 2:24 PM CDT Inhaled Oxygen Concentration - - Weight 74.4 kg (164 lb) 03/10/2025 2:24 PM CDT Height 162.6 cm (5' 4) 03/10/2025 2:24 PM CDT Body Mass Index 28.15 03/10/2025 2:24 PM CDT Plan of Treatment Health Maintenance [...] 2024 06/06/2024, 08/25/2023, 06/27/2022, Additional history exists Influenza Immunization (#1) 2025 10/0 02/2024, 08/25/2023, 06/27/2022, Additional history exists Colonoscopy 05/24/2025 05/24/2020, 05/02, 12/15/2016, Additional history exists Colorectal Cancer Screening 05/24/2025 Td Immunization Every 10 Years (Adults With 1 Tdap) 10/07/2030 10/07/2020 Pneumococcal Immunization Combined Discontinued 11/22/2014, 11/22/2014 DTaP/Tdap/Td Immunization Discontinued 10/07/2020 Hepatitis B Immunization Aged Out No longer [...] was administered transurethrally. A well lubricated 16 Tunisian flexible cystoscope was introduced transurethrally. Findings: Urethra: No evidence of erosion, good coaptation noted The patient tolerated the procedure well. Specimen sent: None Plan: See progress note Kami Gleason MD [place] - SURGERY Final Result * POCT UA AUTOMATED W/O MICRO (01/20/2025 9:55 AM CDT) POC UA SPECIFIC GRAVITY 1.020 URINE PH [...] No growth final 01/11/2025 5:23 PM CDT [facility] Culture URINE SPECIMEN OBTAINED BY CLEAN CATCH PROCEDURE / Unknown Non-Phlebotomy Collection / Unknown 01/10/2025 1:45 PM CDT 01/10/2025 1:45 PM CDT us Kami Gleason MD MICROBIOLOGY - GENERAL ORDERAB LES Final Result [facility] [address] [place] [address], [place] * HM COLONOSCOPY (05/24/2020) us Brent Dickinson DO PROCEDURE/MINOR SURGICAL ORDERA BLES Final Result from Last 3 Months or Most Recently Relevant to Health Maintenance Insurance MEDICARE [facility] Care Teams Hematology Specialist Relationship Specialty Start Date End Date Fuentes Orellana MD [address] [address] PCP - General Family Medicine 07/06/15 Brent Dickinson DO [address] [address] Gastroenterology 06/27/16 Faviola Jiménez APRN, SHREDDED FILLER CIGAR MAKER MACHINE [address] [place] [place] [address] Nurse Practitioner Advanced Practice Nurse 07/22/16 Shawnee Mckinney MD [address] [facility] [address] [place] [address] Urologist Urology 06/07/19 Chicho Clayton MD 4921 [facility] 7 [place] [address] Oncology 06/13/19 Lai Lambert APRN, SHREDDED FILLER CIGAR MAKER MACHINE [address]2 [place] [address] Nurse Practitioner Advanced Practice Nurse 02/10/23 Kami Meneses MD #[address] [address] Consulting Physician Urology 06/16/23 Anette Bond MD [address]2 [place] [address] Consulting Physician Gastroenterology 12/25/22 Kay Gordon APRN, SHREDDED FILLER CIGAR MAKER MACHINE [address]2 [place] [address] Nurse Practitioner Advanced Practice Nurse 06/16/24 Kami Meneses MD #[address] [address] Consulting Physician Urology 08/19/24 Kami Meneses MD #[address], [facility] [address] [place] [address] Consulting Physician Urology 01/06/25 Kami Meneses MD #[address], [facility] [address] [place] [address] Consulting Physician Urology 03/08/25
--- OUTSIDE RECORDS SUMMARY | 2025-03-14 10:04 | XMS_ITS | Encounter Summary ---
Author Organization [facility] Address [address] [place] [address] Phone Care Team Providers Care Astronautical Engineer Name Role Phone Fuentes Orellana MD Primary Care Provider Brent Dickinson DO Unavailable [phone] Faviola Jiménez APPRENTICE PATTERN MAKER, AUTOMATIC WASHER MECHANIC Unavailable Shawnee Mckinney MD Unavailable Chicho Clatyon MD Unavailable Lai Lambert APPRENTICE PATTERN MAKER, AUTOMATIC WASHER MECHANIC Unavailable Kami Meneses MD Unavailable [phone] Anette Bond MD Unavailable [phone] Kay Gordon APPRENTICE PATTERN MAKER, AUTOMATIC WASHER MECHANIC Unavailable Kami Meneses MD Unavailable [phone] Kami Meneses MD Unavailable [phone] Kami Menesse MD Unavailable [phone] Encounter Details Date Type Department Care Team (Late st Contact Info) Description 12/16/2024 Telephone [facility] [address] [place] [address] Kami Meneses MD [address] [place], [address] [address] Social History Tobacco Use Types Packs/Day Years [...] 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 Chicho Clayton at [place] for prostate. * Telephone Encounter - Kami Meneses MD - 12/16/2024 11:45 AM CDT Can you ask the patient who follows him for his prostate cancer? documented in this encounter Plan of Treatment Not on file documented as of this encounter Visit Diagnoses Not on filedocumented in this encounter Care Teams Astronautical Engineer Relationship Specialty Start Date End Date Fuentes Orellana MD [address] [address] PCP - General Family Medicine 07/06/15 Brent Dickinson DO [address] [address] Gastroenterology 06/27/16 Faviola Jiménez APRN, AUTOMATIC WASHER MECHANIC [address] [place] [address] Nurse Practitioner Advanced Practice Nurse 07/22/16 Shawnee Mckinney MD [address] [facility] [address] [place] [address] Urologist Urology 06/07/19 Chicho Clayton MD [address] [facility] [address] [place] [address] Oncology 06/13/19 Lai Lambert APRN, AUTOMATIC WASHER MECHANIC [address]2 [place] [address] Nurse Practitioner Advanced Practice Nurse 02/10/23 Kami Meneses MD #[address] [address] Consulting Physician Urology 06/16/23 Anette Bond MD #2 [place] [address] Consulting Physician Gastroenterology 12/25/22 Kay Gordon APRN, AUTOMATIC WASHER MECHANIC #2 [place] [address] Nurse Practitioner Advanced Practice Nurse 06/16/24 Kami Meneses MD #[address] [address] Consulting Physician Urology 08/19/24 Kami Meneses MD #[address] [facility] [address] [place] [address] Consulting Physician Urology 01/06/25 Kami Meneses MD #[address] [address] Consulting Physician Urology 03/08/25 documented as of this encounter
--- OUTSIDE RECORDS SUMMARY | 2025-03-14 10:04 | XMS_ITS | Continuity of Care Document ---
Author Organization [facility] Address [address] [place] [address] [place] [address] Phone Care Team Providers Care Calender Let Off Helper Name Role Phone To Torres MD Unavailable Unavailable Advance Directives Directive Yes / No Effective Date File Name No Information Encounters Encounter Description Practice Location Reason(s) For Visit Diagnoses Date Provider Providers Copied on Encounter [facility], [address], [place], [place], [id number], tel:[phone] [facility] No Information Dec-0 5-200 5 Melissa Ariza. [address] [facility] [address], [place], [place], [id number], [place]. tel:[phone] Family History Family Member Type Diagnosis Age At Onset No Information Payers Payer name Insurance type Covered republican ID Authoriza tion(s) Medicaid [facility] [id number] Social History Type Description Quantity Date Captured [...]
[2025-03-14 10:10] VITALS: BP 128/54; PULSE 63; RESP 16; TEMP 36.9; O2SAT 100
[2025-03-14] MEDS: BUPivacaine HCL 0.5% 10 ML AMP INFILTRATE (10:54)
[2025-03-14 10:55] VITALS: BP 189/74; PULSE 71; RESP 14; O2SAT 100
[2025-03-14 11:02] VITALS: BP 171/72; PULSE 66; RESP 15; O2SAT 99
[2025-03-14 11:04] VITALS: BP 171/73; PULSE 68; RESP 15; O2SAT 99
[2025-03-14 11:10] VITALS: BP 109/46; PULSE 60; RESP 17; O2SAT 100
[2025-03-14 11:21] VITALS: BP 114/44
== END 2025-03-14 11:32 | disposition home or self-care (01) ==
LOC: ASC 09:53
PROVIDERS: PCP Family Medicine; Visit Provider Anesthesiology Pain Medicine
PROC: (CPT 64493; principal; 2025-03-14 11:10)
DX: M47.817 Spondylosis without myelopathy or radiculopathy, lumbosacral region (principal)
CPT/HCPCS: 64493; 64494 ×2; 64495 ×2; 99199

== ENCOUNTER 2025-04-14 10:38 | Emergency (ER) | payer MEDICARE, SELFPAY ==
--- NOTE | ~2025-04-14 | XR_ITS ---
EXAMINATION: XR chest 1V portable DATE: 04/14/2025 12:44 INDICATION: Lower extremity edema TECHNIQUE: A single portable AP upright frontal image of the chest was obtained. COMPARISON: Chest radiograph dated 02/08/2025 and 11/17/2016 FINDINGS: Cardiomediastinal silhouette is enlarged. No pneumothorax. No pleural effusion. No free air under the diaphragm. No focal pulmonary consolidation IMPRESSION: 1. No acute pulmonary process identified. Reviewed, dictated and finalized at location A.
--- OUTSIDE RECORDS SUMMARY | 2025-04-14 10:41 | XMS_ITS | Encounter Summary ---
Author Organization [facility] Address [address] [place] [address] Phone Care Team Providers Care Wire Frame Lamp Shade Maker Name Role Phone Fuentes Orellana MD Primary Care Provider Brent Dickinson DO Unavailable [phone] Faviola Jiménez WELDER OPERATOR, WASTEWATER TREATMENT PLANT CHEMIST Unavailable Shawnee Mckinney MD Unavailable Chicho Clayton MD Unavailable Lai Lambert WELDER OPERATOR, WASTEWATER TREATMENT PLANT CHEMIST Unavailable [phone] Kami Meneses MD Unavailable [phone] Anette Bond MD Unavailable [phone] Kay Gordon WELDER OPERATOR, WASTEWATER TREATMENT PLANT CHEMIST Unavailable Kami Meneses MD Unavailable [phone] Kami Meneses MD Unavailable [phone] Kami Meneses MD Unavailable [phone] Reason for Visit * Reason Comments Medication Refill Encounter Details Date Type Department Care Team (Late st Contact Info) Description 10/15/2021 Refill [facility] [address] [place] [address] Ingrid Mccloud Ashley, PAC [address] [place] [address] Medication Refill Social History Tobacco Use Types [...] 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 LOPE MACHINE OPERATOR documented in this encounter Plan of Treatment Upcoming Encounters Date Type Department Care Team (Late st Contact Info) Description 04/28/2025 11:15 AM CDT Office Visit [facility] #[address] [place] [address] Kami Meneses MD [address] [address] documented as of this encounter Visit Diagnoses Not on filedocumented in this encounter Care Teams Wire Frame Lamp Shade Maker Relationship Specialty Start Date End Date Fuentes Orellana MD [address] [place] [address] PCP - General Family Medicine 07/06/15 Bretn Dickinson DO [address] [address] Gastroenterology 06/27/16 Faviola Jiménez APRN, WASTEWATER TREATMENT PLANT CHEMIST [address] [facility] [place] [address] Nurse Practitioner Advanced Practice Nurse 07/22/16 Shawnee Mckinney MD 4960 [facility] [address] [place] [address] Urologist Urology 06/07/19 Chicho Clayton MD 4921 [facility] 7 [place] [address] Oncology 06/13/19 Lai Lambert APRN, WASTEWATER TREATMENT PLANT CHEMIST [address] [place] [address] Nurse Practitioner Advanced Practice Nurse 02/10/23 Kami Meneses MD #[address] [address] Consulting Physician Urology 06/16/23 Anette Bond MD #[address] [place] [address] Consulting Physician Gastroenterology 12/25/22 Kay Gordon APRN, WASTEWATER TREATMENT PLANT CHEMIST #2 [place] [address] Nurse Practitioner Advanced Practice Nurse 06/16/24 Kami Meneses MD [address], [facility] [address] [place] [address] Consulting Physician Urology 08/19/24 Kami Meneses MD #[address], [facility] [address] [place] [address] Consulting Physician Urology 01/06/25 Kami Meneses MD #[address], [facility] [address] [place] [address] Consulting Physician Urology 03/08/25 documented as of this encounter
--- OUTSIDE RECORDS SUMMARY | 2025-04-14 10:41 | XMS_ITS | Encounter Summary ---
Author Organization [facility] Address [address] [place] [address] Phone Care Team Providers Care Heating And Ventilating Tender Name Role Phone Fuentes Orellana MD Primary Care Provider Brent Dickinson DO Unavailable [phone] Faviola Jiménez NOC ENGINEER, WORKPLACE TRAINER AND ASSESSOR Unavailable Shawnee Mckinney MD Unavailable Chicho Clayton MD Unavailable Lai Lambert NOC ENGINEER, WORKPLACE TRAINER AND ASSESSOR Unavailable [phone] Kami Meneses MD Unavailable [phone] Aentte Bond MD Unavailable [phone] Kay Gordon NOC ENGINEER, WORKPLACE TRAINER AND ASSESSOR Unavailable Kami Meneses MD Unavailable [phone] Kami Meneses MD Unavailable [phone] Kami Meneses MD Unavailable [phone] Reason for Visit * Reason Comments Medication Refill Encounter Details Date Type Department Care Team (Late st Contact Info) Description 11/12/2022 Refill [facility] #[address] [place] [address] Ingrid Mccloud Ashley, PAC [address] [place] [address] Medication Refill Social History Tobacco Use Types [...] 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 Not on file [...] Description 04/28/2025 11:15 AM CDT Office Visit [facility] #[address] [place] [address] Kami Meneses MD #[address] [address] documented as of this encounter Visit Diagnoses Not on filedocumented in this encounter Care Teams Heating And Ventilating Tender Relationship Specialty Start Date End Date Fuentes Orellana MD [address] [place] [address] PCP - General Family Medicine 07/06/15 Brent Dickinson DO [address] [place] [address] Gastroenterology 06/27/16 Faviola Jiménez APRN, WORKPLACE TRAINER AND ASSESSOR [address] [place] [address] Nurse Practitioner Advanced Practice Nurse 07/22/16 Shawnee Mckinney MD 4960 [facility] [address] [place] [address] Urologist Urology 06/07/19 Chicho Clayton MD 4921 [facility] 7 [place] [address] Oncology 06/13/19 Lai Lambert APRN, WORKPLACE TRAINER AND ASSESSOR #2 [place] [address] Nurse Practitioner Advanced Practice Nurse 02/10/23 Kami Meneses MD [facility] [facility] [address] [address] Consulting Physician Urology 06/16/23 Anette Bond MD #[address] [place] [address] Consulting Physician Gastroenterology 12/25/22 Kay Gordon APRN, WORKPLACE TRAINER AND ASSESSOR [address] [place] [address] Nurse Practitioner Advanced Practice Nurse 06/16/24 Kami Meneses MD [address], [facility] [address] [place] [address] Consulting Physician Urology 08/19/24 Kami Meneses MD [address] [place] [address] Consulting Physician Urology 01/06/25 Kami Meneses MD [address] [place] [address] Consulting Physician Urology 03/08/25 documented as of this encounter
--- OUTSIDE RECORDS SUMMARY | 2025-04-14 10:41 | XMS_ITS | Encounter Summary ---
Author Organization [facility] Address [address] [place] [address] Phone Care Team Providers Care Children'S Tutor Name Role Phone Fuentes Orellana MD Primary Care Provider [phone] Brent Dickinson DO Unavailable [phone] Faviola Jiménez MACHINE FASTENER, MANUFACTURING TECHNOLOGY PROFESSOR Unavailable Shawnee Mckinney MD Unavailable Chicho Clayton MD Unavailable Lai Lambert MACHINE FASTENER, MANUFACTURING TECHNOLOGY PROFESSOR Unavailable [phone] Kami Meneses MD Unavailable [phone] Anette Bond MD Unavailable [phone] Kay Gordon MACHINE FASTENER, MANUFACTURING TECHNOLOGY PROFESSOR Unavailable Kami Meneses MD Unavailable [phone] Kami Meneses MD Unavailable [phone] Kami Meneses MD Unavailable [phone] Encounter Details Date Type Department Care Team (Late st Contact Info) Description 08/22/2024 Telephone [facility] [address] [place] [address] Kami Meneses MD #[address], [place] [address] [place] [address] Social History Tobacco Use Types Packs/Day Years [...] Job 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 Date 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 RV[employer]OR TELEPHONE ANSWERING SERVICE * Telephone Encounter - Elidia Dill - 08/29/2024 8:20 AM CST Please see Dr. Otto message. RVISOR TELEPHONE ANSWERING SERVICE * Telephone Encounter - Kami Meneses MD [...] sphincter. This needs to be done at [facility] by me. He will need a urine culture 14 days prior to surgery. Hibiclens shower the night before morning of surgery, vancomycin and gentamicin for antibiotics RVISOR TELEPHONE ANSWERING SERVICE RVISOR TELEPHONE ANSWERING SERVICE documented in this encounter Plan of Treatment Upcoming Encounters Date Type Department Care Team (Late st Contact Info) Description 04/28/2025 11:15 AM CDT Office Visit [facility] #[address] [place] [address] Kami Meneses MD #[address] [address] documented as of this encounter Visit Diagnoses Not on filedocumented in this encounter Care Teams Children'S Tutor Relationship Specialty Start Date End Date Fuentes Orellana MD [address] [facility] [address] PCP - General Family Medicine 07/06/15 Brent Dickinson DO [address] [place] [address] Gastroenterology 06/27/16 Faviola Jiménez, MACHINE FASTENER, MANUFACTURING TECHNOLOGY PROFESSOR [address] [place] [address] Nurse Practitioner Advanced Practice Nurse 07/22/16 Shawnee Mckinney MD 4960 [facility] 8[address] [place] [address] Urologist Urology 06/07/19 Chicho Clayton MD 4921 [facility] 7 [place] [address] Oncology 06/13/19 Lai Lambert MACHINE FASTENER, MANUFACTURING TECHNOLOGY PROFESSOR #[address] [place] [address] Nurse Practitioner Advanced Practice Nurse 02/10/23 Kami Meneses MD #2 [address] [facility], [facility] [address] [place] [address] Consulting Physician Urology 06/16/23 Anette Bond MD #2 [place] [address] Consulting Physician Gastroenterology 12/25/22 Kay Gordon APRN, MANUFACTURING TECHNOLOGY PROFESSOR #2 [place] [address] Nurse Practitioner Advanced Practice Nurse 06/16/24 Kami Meneses MD #2 [address] [facility], [address] [place] [address] Consulting Physician Urology 08/19/24 Kami Meneses MD #2 [address] [facility], [facility] [address] [place] [address] Consulting Physician Urology 01/06/25 Kami Meneses MD #[address], [facility] [address] [place] [address] Consulting Physician Urology 03/08/25 documented as of this encounter
--- OUTSIDE RECORDS SUMMARY | 2025-04-14 10:41 | XMS_ITS | Continuity of Care Document ---
Author Organization [facility] Address [address] [place] [address] [place] [address] Phone Care Team Providers Care Deputy Director Of Finance Name Role Phone To Torres MD Unavailable Unavailable Advance Directives Directive Yes / No Effective Date File Name No Information Encounters Encounter Description Practice Location Reason(s) For Visit Diagnoses Date Provider Providers Copied on Encounter [facility], [id number] [place] [address] [address], [place], [place], [id number], tel:[phone] [facility] No Information Dec-0 5-200 5 Melissa Ariza. [address] [facility] [address], [place], [place], [id number], [place]. tel:[phone] Family History Family Member Type Diagnosis Age At Onset No Information Payers Payer name Insurance type Covered libertarian ID Authoriza tion(s) Medicaid [facility] [id number] Social History Type Description Quantity Date Captured [...]
--- OUTSIDE RECORDS SUMMARY | 2025-04-14 10:41 | XMS_ITS | Clinical Summary ---
Author Organization [facility] Address [address] [place] [address] Phone Care Team Providers Care Grounds Person Name Role Phone Fuentse Orellana MD Primary Care Provider [phone] Allergies No known active allergies Medications pantoprazole [...] 2025 06/15/2018 Medical Devices Implanted Type Area Metallurgical Laboratory Assistant Device Identifier Shelf Expiration Date Model / Serial / Lot Ams 800 Urinary Control System(Penile Implant) Description:MRI conditional for 3T or less -danisha 01/04/19 Insurance MEDICARE PART A AND B IRA [facility] [id number] Care Teams Grounds Person Relationship Specialty Start Date End Date Fuentes Orellana MD [address] [place] [address] PCP - General Family Practice 01/04/19
--- OUTSIDE RECORDS SUMMARY | 2025-04-14 10:41 | XMS_ITS | Encounter Summary ---
Author Organization [facility] Address [address] [place] [address] Phone Care Team Providers Care Casual Shoe Inspector Name Role Phone Fuentes Orellana MD Primary Care Provider Brent Dickinson DO Unavailable [phone] Faviola Jiménez ELECTRICAL INSTRUMENT REPAIRER, RETAIL MANAGEMENT KEYHOLDER Unavailable Shawnee Mckinney MD Unavailable Chicho Clayton MD Unavailable Lai Lambert ELECTRICAL INSTRUMENT REPAIRER, RETAIL MANAGEMENT KEYHOLDER Unavailable [phone] Kami Meneses MD Unavailable [phone] Anette Bond MD Unavailable [phone] Kay Gordon ELECTRICAL INSTRUMENT REPAIRER, RETAIL MANAGEMENT KEYHOLDER Unavailable Kami Meneses MD Unavailable [phone] Kami Meneses MD Unavailable [phone] Kami Meneses MD Unavailable [phone] Encounter Details Date Type Department Care Team (Late st Contact Info) Description 12/16/2024 Telephone [facility] [address] [place] [address] Kami Meneses MD [address] 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 Chicho Clayton at [facility] for prostate. * Telephone Encounter - Kami Meneses MD - 12/16/2024 11:45 AM CDT Can you ask the patient who follows him for his prostate cancer? documented in this encounter Plan of Treatment Upcoming Encounters Date Type Department Care Team (Late st Contact Info) Description 04/28/2025 11:15 AM CDT Office Visit [facility] [address] [place] [address] Kami Meneses MD #[address] [facility] [address] [place] [address] documented as of this encounter Visit Diagnoses Not on filedocumented in this encounter Care Teams Casual Shoe Inspector Relationship Specialty Start Date End Date Fuentes Orellana MD [address] [place] [address] PCP - General Family Medicine 07/06/15 Brent Dickinson DO [address] [facility] [facility] [place] [address] Gastroenterology 06/27/16 Faviola Jiménez APRN, RETAIL MANAGEMENT KEYHOLDER [address] [place] [address] Nurse Practitioner Advanced Practice Nurse 07/22/16 Shawnee Mckinney MD 4960 [facility] [address] [place] [address] Urologist Urology 06/07/19 Chicho Clayton MD 4921 [facility] 7 [place] [address] Oncology 06/13/19 Lai Lambert APRN, RETAIL MANAGEMENT KEYHOLDER #2 [place] [address] Nurse Practitioner Advanced Practice Nurse 02/10/23 Kami Meneses MD #[address] [address] Consulting Physician Urology 06/16/23 Anette Bond MD #2 [place] [address] Consulting Physician Gastroenterology 12/25/22 Kay Gordon APRN, RETAIL MANAGEMENT KEYHOLDER #[address] [place] [address] Nurse Practitioner Advanced Practice Nurse 06/16/24 Kami Meneses MD #[address] [address] Consulting Physician Urology 08/19/24 Kami Meneses MD #[address] [address] Consulting Physician Urology 01/06/25 Kami Meneses MD #[address] [address] Consulting Physician Urology 03/08/25 documented as of this encounter
--- OUTSIDE RECORDS SUMMARY | 2025-04-14 10:41 | XMS_ITS | Encounter Summary ---
Author Organization [facility] Address [address] [place] [address] Phone Care Team Providers Care Discharge Coordinator Name Role Phone Fuentes Orellana MD Primary Care Provider [phone] Brent Dickinson DO Unavailable [phone] Faviola Jiménez VP SALES, LOADING UNIT OPERATOR POWDER CHARGING Unavailable Shawnee Mckinney MD Unavailable Chicho Clayton MD Unavailable Lai Lambert VP SALES, LOADING UNIT OPERATOR POWDER CHARGING Unavailable [phone] Kami Meneses MD Unavailable [phone] Anette Bond MD Unavailable [phone] Kay Gordon VP SALES, LOADING UNIT OPERATOR POWDER CHARGING Unavailable Kami Meneses MD Unavailable [phone] Kami Meneses MD Unavailable [phone] Kami Meneses MD Unavailable [phone] Reason for Visit * Reason Comments Medication Refill Encounter Details Date Type Department Care Team (Late st Contact Info) Description 03/25/2021 Refill [facility] - Gastroenterology [facility] #[address] [place] [address] Ingrid Mccloud Ashley, PAC [address] [place] [address] Medication Refill Social History Tobacco Use Types [...] 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 difficile Rule-Out 04/10/2021 04/10/20212020 12:16 AM CDT documented as of this encounter Care Teams Discharge Coordinator Relationship Specialty Start Date End Date Fuentes Orellana MD [address] [facility] [place] [address] PCP - General Family Medicine 07/06/15 Brent Dickinson DO [address] [facility] [place] [address] Gastroenterology 06/27/16 Faviola Jiménez APRN, LOADING UNIT OPERATOR POWDER CHARGING 20-[address] [facility] [place] [address] Nurse Practitioner Advanced Practice Nurse 07/22/16 Shawnee Mckinney MD 4960 [facility] [address] [place] [address] Urologist Urology 06/07/19 Chicho Clayton MD 4921 [facility] 7 [place] [address] Oncology 06/13/19 Lai Lambert APRN, LOADING UNIT OPERATOR POWDER CHARGING #2 [place] [address] Nurse Practitioner Advanced Practice Nurse 02/10/23 Kami Meneses MD #2 [facility] [address] [address] Consulting Physician Urology 06/16/23 Anette Bond MD #[address] [place] [address] Consulting Physician Gastroenterology 12/25/22 Kay Gordon APRN, LOADING UNIT OPERATOR POWDER CHARGING #2 [place] [address] Nurse Practitioner Advanced Practice Nurse 06/16/24 Kami Meneses MD #[address] [address] Consulting Physician Urology 08/19/24 Kami Meneses MD #[address] [address] Consulting Physician Urology 01/06/25 Kami Meneses MD #[address] [address] Consulting Physician Urology 03/08/25 documented as of this encounter
--- OUTSIDE RECORDS SUMMARY | 2025-04-14 10:41 | XMS_ITS | Clinical Summary ---
Author Organization [facility] Address [address] [place] [address] Care Team Providers Care Caustic Pump Operator Name Role Phone Fuentes Orellana MD Primary Care Provider [phone] Allergies No known active allergies Medications amLODIPine [...] age to complete this topic Insurance MEDICARE [facility] Care Teams Caustic Pump Operator Relationship Specialty Start Date End Date Fuentes Orellana MD [address] [place] [id number] PCP - General FAMILY PRACTICE 11/29/22
--- OUTSIDE RECORDS SUMMARY | 2025-04-14 10:41 | XMS_ITS | Clinical Summary ---
Author Organization [facility] Address [address], [facility] [address] [place] [address] Phone Care Team Providers Care Seaman Officer Name Role Phone Fuentes Orellana MD Primary Care Provider [phone] Brent Dickinson DO Unavailable [phone] Faviola Jiménez FILM PRINTER, CREDIT UNDERWRITER Unavailable Shawnee Mckinney MD Unavailable Chicho Clayton MD Unavailable Lai Lambert FILM PRINTER, CREDIT UNDERWRITER Unavailable [phone] Kami Meneses MD Unavailable Anette Bond MD Unavailable [phone] Kay Gordon APRN, CREDIT UNDERWRITER Unavailable Kami Meneses MD Unavailable [phone] Kami Meneses MD Unavailable [phone] Kami Meneses MD Unavailable [phone] Allergies No known active allergies Medications [...] by mouth every 12 hours 5 Active gabapentin (NEURONTIN) 100 MG Capsule Take 1 Capsule by mouth 3 times daily. 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 Iron deficiency anemia 02/15/2020 Collagenous colitis 07/22/2016 Gastroesophageal reflux disease 07/22/2016 Hx of colonic polyps 07/22/2016 Encounters Date Type Department Care Team Description 03/22/2025 Telephone [facility] [address] [place] [address] Kami Meneses MD Pain 03/10/2025 2:15 PM CDT Office Visit [facility] [address] [place] [address] Kami Meneses MD Stress incontinence (female) (male) (Primary Dx); Prostate cancer (HCC) Discharge Disposition: Discharged to home or Selfcare 03/10/2025 Travel 01/20/2025 10:00 AM CDT Office Visit [facility] [address] [place] [address] Kami Meneses MD UTI symptoms (Primary Dx); Stress incontinence (female) (male); Dysuria Discharge Disposition: Discharged to home or Selfcare 01/20/2025 Travel 01/13/2025 Telephone [facility] [address] [address] Kami Meneses MD from Last 3 Months Immunizations Immunization Administration [...] Job 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 Date 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 Not on file Not on file Not on cory e Last Filed Vital Signs Vital Sign Reading Time Taken Comments Blood Pressure 121/66 03/10/2025 2:24 PM CDT Pulse 74 03/10/2025 2:24 PM CDT Temperature 36.4 C (97.6 F) 08/10/2024 9:53 AM PARTS PROCESSOR Respiratory Rate 18 01/20/2025 9:49 AM CDT Oxygen Saturation 99% 03/10/2025 2:24 PM CDT Inhaled Oxygen Concentration - - Weight 74.4 kg (164 lb) 03/10/2025 2:24 PM CDT Height 162.6 cm (5' 4) 03/10/2025 2:24 PM CDT Body Mass Index 28.15 03/10/2025 2:24 PM CDT Plan of Treatment Upcoming Encounters Date Type Department Care Team (Late st Contact Info) Description 04/28/2025 11:15 AM CDT Office Visit [facility] #[address] [place] [address] Kami Meneses MD #[address] [address] Health Maintenance Due Date Last Done Comments [...] CDT UTI symptoms Stress incontinence (female) (male) HM COLONOSCOPY Routine 05/24/2020 from Last 3 [...] was administered transurethrally. A well lubricated 16 Ethiopian flexible cystoscope was introduced transurethrally. Findings: Urethra: No evidence of erosion, good coaptation noted The patient tolerated the procedure well. Specimen sent: None Plan: See progress note Kami Gleason MD MA - SURGERY Final Result * POCT UA [...] OF CARE TESTING (MANUAL) Final Result * HM COLONOSCOPY (05/24/2020) Brent Dickinson DO PROCEDURE/MINOR SURGICAL ORDERA BLES Final Result from Last 3 Months or Most Recently Relevant to Health Maintenance Insurance MEDICARE [facility] Care Teams Seaman Officer Relationship Specialty Start Date End Date Fuentes Orellana MD [address] [place] [address] PCP - General Family Medicine 07/06/15 Brent Dickinson DO [address] [place] [address] Gastroenterology 06/27/16 Faviola Jiménez FILM PRINTER, CREDIT UNDERWRITER [address] [place] [address] Nurse Practitioner Advanced Practice Nurse 07/22/16 Shawnee Mckinney MD 4960 [facility] [address] [place] [address] Urologist Urology 06/07/19 Chicho Clayton MD 4921 [facility] 7 [place] [address] Oncology 06/13/19 Lai Lambert APRN, CREDIT UNDERWRITER #2 [place] [address] Nurse Practitioner Advanced Practice Nurse 02/10/23 Kami Meneses MD #[address] [address] Consulting Physician Urology 06/16/23 Anette Bond MD #2 [place] [address] Consulting Physician Gastroenterology 12/25/22 Kay Gordon APRN, CREDIT UNDERWRITER #[address] [place] [address] Nurse Practitioner Advanced Practice Nurse 06/16/24 Kami Meneses MD #[address], [facility] [address] [place] [address] Consulting Physician Urology 08/19/24 Kami Meneses MD #[address], [facility] [address] [place] [address] Consulting Physician Urology 01/06/25 Kami Meneses MD #[address] [facility] [address], [facility] [address] [place] [address] Consulting Physician Urology 03/08/25
[2025-04-14 11:15] VITALS: BP 142/53; PULSE 82; RESP 16; TEMP 36.6; O2SAT 99
--- OUTSIDE RECORDS SUMMARY | 2025-04-14 12:06 | XMS_ITS | Encounter Summary ---
Author Organization [facility] Address [address] [place] [address] Care Team Providers Care Entrepreneurial Finance Professor Name Role Phone Fuentes Orellana MD Primary Care Provider [phone] Itz Iyer MD Unavailable [phone] Shawnee Mckinney MD Unavailable [phone] Chicho Clayton MD Unavailable Maria Guadalupe Palacios RN Unavailable Unava ilable Lupillo Davenport MD Unavailable [phone] Danis Meza SENIOR ACCOUNTING ASSOCIATE Unavailable [phone] Antonette Owens NP Unavailable Aniceto Foley MD Unavailable [phone] Encounter Details Date Type Department Care Team (Late st Contact Info) Description 07/24/[address] 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 Gender Identity Not on file Sexual Orientation Choose not to disclose 2018 8:58 AM CDT Occupation Industry Job 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 Date retired Not on file Not on file Not on file documented as of this encounter Plan of Treatment Upcoming Encounters Date Type Department Care Team (Latest Contact Info) Description 04/24/2025 8:30 AM CDT Hospital Encounter [facility] Operating Room [address] [place] [address] Aniceto Foley MD [address] [id number] [place] [address] PAD (peripheral artery disease) 04/24/2025 8:30 AM CDT - 04/24/2025 11:45 AM CDT Surgery [facility] Operating Room [address] [place] [address] Aniceto Foley MD [address] [id number] [place] [address] ANGIOGRAM - HYBRID ROOM aorto iliac angiogram documented as of this encounter Procedures Procedure Name Priority Date/Time Associated Diagnosis Comments SCAN - LABS 07/24/2024 documented in this encounter Results * SCAN - LABS (07/24/2024) us Provider Scanning Final Result documented in this encounter Visit Diagnoses Not on filedocumented in this encounter Care Teams Entrepreneurial Finance Professor Relationship Specialty Start Date End Date Fuentes Orellana MD PCP - General 11/28/16 Itz Iyer MD [address] [place] [address] Consulting Physician Urology 05/31/18 Shawnee Mckinney MD [address] [facility] [address] [place] [address] Referring Physician Urology 06/03/18 Chicho Clayton MD [address] [place] [address] Medical Oncologist/Hematologis t Medical Oncology 06/07/18 Maria Guadalupe Palacios, RN Registered Nurse 06/10/18 Lupillo Davenport MD Referring Physician Radiation Oncology 06/16/18 Danis Meza NP [address] [place] [address] Nurse Practitioner Urology 10/06/22 Antonette Owens NP [address] [facility] [address] [place] [address] Nurse Practitioner Cardiovascular Disease 10/06/22 Aniceto Foley MD [address] [facility] [address] [place] [address] Surgeon Vascular Surgery 10/31/22 documented as of this encounter
--- OUTSIDE RECORDS SUMMARY | 2025-04-14 12:06 | XMS_ITS | Encounter Summary ---
Author Organization [facility] Address [address] [facility] [address] [place] [address] Care Team Providers Care Holder Pile Driving Name Role Phone Fuentes Orellana MD Primary Care Provider [phone] Fuentes Orellana MD Primary Care Provider [phone] Itz Iyer MD Unavailable [phone] Lupillo Davenport MD Unavailable [phone] Lupillo Davenport MD Unavailable [phone] Shawnee Mckinney MD Unavailable [phone] Chicho Clayton MD Unavailable Newton Weeks MD Unavailable [phone] Maria Guadalupe Palacios RN Unavailable Unava ilable Lupillo Davenport MD Unavailable [phone] Itz Iyer MD Unavailable [phone] Itz Iyer MD Unavailable [phone] Itz Iyer MD Unavailable [phone] Itz Iyer MD Unavailable [phone] Itz Iyer MD Unavailable [phone] Itz Iyer MD Unavailable [phone] Danis Meza CONDENSER WINDER Unavailable Antonette Owens CONDENSER WINDER Unavailable Aniceto Foley MD Unavailable Encounter Details Date Type Department Care Team (Late st Contact Info) Description 11/18/2016 Orders Only [facility] Provider, MD [address] [place] [address] Social History Tobacco Use Types Packs/Day Years Used Date Smoking Tobacco: Never Assessed Sex and Gender Information Value Date Recorded Sex Assigned at Not on file 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 Gender Identity Not on file Sexual Orientation Choose not to disclose 2018 8:58 AM CDT documented as of this encounter Plan of Treatment Upcoming Encounters Date Type Department Care Team (Latest Contact Info) Description 04/24/2025 8:30 AM CDT Hospital Encounter [facility] Operating Room [address] [place] [address] Aniceto Foley MD [address] [facility] [id number] [place] [address] PAD (peripheral artery disease) 04/24/2025 8:30 AM CDT - 04/24/2025 11:45 AM CDT Surgery [facility] Operating Room [address] [place] [address] Aniceto Foley MD [address] [facility] [id number] [place] [address] ANGIOGRAM - HYBRID ROOM aorto iliac angiogram [...] on filedocumented in this encounter Care Teams Holder Pile Driving Relationship Specialty Start Date End Date Fuentes Orellana MD PCP - General 11/28/16 Fuentes Orellana MD PCP - General 07/14/07 11/27/16 Itz Iyer MD [address] [address] Consulting Physician Urology 05/31/18 Lupillo Daevnport MD [address] [place] [address] Referring Physician Radiation Oncology 05/31/18 Lupillo Davenport MD [address] [place] [address] Referring Physician Radiation Oncology 05/31/18 Shawnee Mckinney MD [address] [facility] [address] [place] [address] Referring Physician Urology 06/03/18 Chicho Clayton MD [address] [facility] [address] [place] [address] Medical Oncologist/Hematologis t Medical Oncology 06/07/18 Newton Weeks MD 49[address] [facility] [address] [place] [address] Referring Physician Radiation Oncology 06/07/18 Maria Guadalupe Palacios, RN Registered Nurse 06/10/18 Lupillo Davenport MD [address] [place] [address] [place] [address] Referring Physician Radiation Oncology 06/16/18 Itz Iyer MD [address] [place] [address] Consulting Physician Urology 06/17/18 06/17/18 Itz Iyer MD [address] [place] [address] Consulting Physician Urology 06/18/18 06/18/18 Itz Iyer MD [address] [place] [address] Consulting Physician Urology 06/18/18 06/18/18 Itz Iyer MD [address] [place] [address] Consulting Physician Urology 06/22/18 06/22/18 Itz Iyer MD [address] [place] [address] Consulting Physician Urology 07/01/18 07/01/18 Itz Iyer MD [address] [address] Consulting Physician Urology 07/06/18 07/06/18 Danis Meza NP [address] [place] [address] Nurse Practitioner Urology 10/06/22 Antonette Owens NP [address] [place] [address] Nurse Practitioner Cardiovascular Disease 10/06/22 Aniceto Foley MD [address] [facility] [address] [place] [address] Surgeon Vascular Surgery 10/31/22 documented as of this encounter
--- OUTSIDE RECORDS SUMMARY | 2025-04-14 12:06 | XMS_ITS | Encounter Summary ---
Author Organization [facility] Address [address] [place] [address] Phone Care Team Providers Care Header Boss Name Role Phone Fuentes Orellana MD Primary Care Provider [phone] Brent Dickinson DO Unavailable [phone] Faviola Jiménez ASSOCIATE EMBALMER/FUNERAL DIRECTOR, CUSTOMER ENGAGEMENT MANAGER Unavailable Shawnee Mckinney MD Unavailable Chicho Clayton MD Unavailable Lai Lambert ASSOCIATE EMBALMER/FUNERAL DIRECTOR, CUSTOMER ENGAGEMENT MANAGER Unavailable [phone] Kami Meneses MD Unavailable [phone] Anette Bond MD Unavailable [phone] Kay Gordon ASSOCIATE EMBALMER/FUNERAL DIRECTOR, CUSTOMER ENGAGEMENT MANAGER Unavailable Kami Meneses MD Unavailable [phone] Kami Meneses MD Unavailable [phone] Kami Meneses MD Unavailable [phone] Encounter Details Date Type Department Care Team (Late st Contact Info) Description 08/22/2024 Telephone [facility] [address] [place] [address] Kami Meneses MD #[address], [address] [place] [address] Social History Tobacco Use Types Packs/Day Years [...] 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 CTOR OF PREMIUM SEAT SALES * Telephone Encounter - Elidia Dill - 08/29/2024 8:20 AM CST Please see Dr. Otto message. CTOR OF PREMIUM SEAT SALES * Telephone Encounter - Kami Meneses MD [...] sphincter. This needs to be done at [facility] by me. He will need a urine culture 14 days prior to surgery. Hibiclens shower the night before morning of surgery, vancomycin and gentamicin for antibiotics CTOR OF PREMIUM SEAT SALES CTOR OF PREMIUM SEAT SALES documented in this encounter Plan of Treatment Upcoming Encounters Date Type Department Care Team (Late st Contact Info) Description 04/28/2025 11:15 AM CDT Office Visit [facility] #[address] [place] [address] Kami Meneses MD #[address] [address] documented as of this encounter Visit Diagnoses Not on filedocumented in this encounter Care Teams Header Boss Relationship Specialty Start Date End Date Fuentes Orellana MD [address] [facility] [place] [address] PCP - General Family Medicine 07/06/15 Brent Dickinson DO [address] [place] [address] Gastroenterology 06/27/16 Faviola Jiménez, ASSOCIATE EMBALMER/FUNERAL DIRECTOR, CUSTOMER ENGAGEMENT MANAGER [address] [place] [address] Nurse Practitioner Advanced Practice Nurse 07/22/16 Shawnee Mckinney MD 4960 [facility] [address] [place] [address] Urologist Urology 06/07/19 Chicho Clayton MD 4921 [facility] 7 [place] [address] Oncology 06/13/19 Lia Lambert ASSOCIATE EMBALMER/FUNERAL DIRECTOR, CUSTOMER ENGAGEMENT MANAGER #2 [place] [address] Nurse Practitioner Advanced Practice Nurse 02/10/23 Kami Meneses MD #2 [facility] [address] [place] [address] Consulting Physician Urology 06/16/23 Anette Bond MD #2 [place] [address] Consulting Physician Gastroenterology 12/25/22 Kay Gordon APRN, CUSTOMER ENGAGEMENT MANAGER #2 [place] [address] Nurse Practitioner Advanced Practice Nurse 06/16/24 Kami Meneses MD #2 [facility] [facility], [address] [place] [address] Consulting Physician Urology 08/19/24 Kami Meneses MD #2 [facility] [facility], [facility] [address] [place] [address] Consulting Physician Urology 01/06/25 Kami Meneses MD #[address], [facility] [address] [place] [address] Consulting Physician Urology 03/08/25 documented as of this encounter
--- OUTSIDE RECORDS SUMMARY | 2025-04-14 12:06 | XMS_ITS | Encounter Summary ---
Author Organization [facility] Address [address] [place] [address] Phone Care Team Providers Care Automated Manufacturing Instructor Name Role Phone Fuentes Orellana MD Primary Care Provider + [phone] Itz Iyer MD Unavailable [phone] Shawnee Mckinney MD Unavailable [phone] Chicho Clayton MD Unavailable Maria Guadalupe Palacios RN Unavailable Unava ilable Lupillo Davenport MD Unavailable [phone] Danis Meza WELDING MACHINE OPERATOR HELPER ARC Unavailable [phone] Antonette Owens NP Unavailable Aniceto Foley MD Unavailable [phone] Encounter Details Date Type Department Care [...] on file Legal Sex Male 12:32 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 Gender Identity Not on file Sexual Orientation Choose not to disclose 2018 8:58 AM CDT documented as of this encounter Plan of Treatment Upcoming Encounters Date Type Department Care Team (Latest Contact Info) Description 04/24/2025 8:30 AM CDT Hospital Encounter [facility] Operating Room 1 [place] [address] Aniceto Foley MD [address] [facility] [address] [place] [address] PAD (peripheral artery disease) 04/24/2025 8:30 AM CDT - 04/24/2025 11:45 AM CDT Surgery [facility] Operating Room 1 [place] [address] Aniceto Foley MD [address] [facility] [address] [place] [address] ANGIOGRAM - HYBRID ROOM aorto iliac angiogram documented as of this encounter Procedures Procedure Name Priority Date/Time Associated Diagnosis Comments SCAN - RADIOLOGY/IMAGING 01/18/2019 documented in this encounter Results * SCAN - RADIOLOGY/IMAGING (01/18/2019) Anatomical Region Laterality Modality Other us Provider Scanning Final Result documented in this encounter Visit Diagnoses Not on filedocumented in this encounter Care Teams Automated Manufacturing Instructor Relationship Specialty Start Date End Date Fuentes Orellana MD PCP - General 11/28/16 Itz Iyer MD [address] [address] Consulting Physician Urology 05/31/18 Shawnee Mckinney MD [address] [facility] [address] [place] [address] Referring Physician Urology 06/03/18 Chicho Clayton MD 4921 [facility] [address] [place] [address] Medical Oncologist/Hematologis t Medical Oncology 06/07/18 Maria Guadalupe Palacios, RN Registered Nurse 06/10/18 Lupillo Davenport MD Referring Physician Radiation Oncology 06/16/18 Danis Meza NP [address] [place] [address] Nurse Practitioner Urology 10/06/22 Antonette Owens NP [address] [place] [address] Nurse Practitioner Cardiovascular Disease 10/06/22 Aniceto Foley MD [address] [place] [address] Surgeon Vascular Surgery 10/31/22 documented as of this encounter
--- OUTSIDE RECORDS SUMMARY | 2025-04-14 12:06 | XMS_ITS ---
Author Organization [facility] [address] Address [address] [place] [address] Care Team Providers Care Information Security Architect Name Role Phone Fuentes Orellana MD Primary Care Provider [phone] Itz Iyer MD Unavailable [phone] Shawnee Mckinney MD Unavailable [phone] Chicho Clayton MD Unavailable Maria Guadalupe Palacios RN Unavailable Unava ilable Lupillo Davenport MD Unavailable [phone] Danis Meza INSURANCE INSTRUCTOR Unavailable Antonette Owens NP Unavailable Aniceto Foley MD Unavailable Active Problems Problem Noted Date Diagnosed Date PAD (peripheral artery disease) 03/10/2025 Stress incontinence 10/12/2024 Penile pain 12/04/2022 Assessment [...] (10/21/2022): Added automatically from request for surgery [id number] Assessment & Plan (10/30/2022 2:56 PM LINTER TENDER): - OR 3/2 for planned R CEA - OU status, Q2h NV/VS monitoring - Bedrest today, OOB/PT POD #1 - SBP goal 100-160, nicardipine for elevated BP - Continue aspirin and statin - Plan to stager home medications and resume overnight Atherosclerosis of [place] ar teries of extremities with intermittent claudication, bilateral legs 06/03/2022 Melanoma 01/10/2021 Anxiety 01/10/2021 DM (diabetes mellitus) 01/10/2021 Assessment & Plan (10/30/2022 9:59 AM LINTER TENDER): - A1c 7.6% 10/2022 - SSI while inpatient - CC diet when eating Elevated left ventricular end-diastolic pressure (LVEDP) 11/15/2019 Encounter for surgical after care following surgery of circulatory system 05/20/2019 Prostate cancer 09/10/2018 Assessment & Plan (10/27/2018 9:53 AM LINTER TENDER): Follows with urology, has his PSA monitored it is increasing, but still WNL 1.4 Assessment & Plan (09/22/2018 11:35 AM LINTER TENDER): Has close follow up with his oncologist. His PSA was slightly elevated on last check. Hyperlipidemia 09/21/2017 Assessment & Plan (06/30/2018 9:38 AM CDT): His last lipid panel was within acceptable range; he will continue on a high intensity statin. Assessment & Plan (09/21/2017 11:34 AM LINTER TENDER): Continue Lipitor 40 mg daily. Essential hypertension 07/20/2017 Assessment & Plan (10/30/2022 2:57 PM LINTER TENDER): - Tight BP goals post-procedure - Continue home medications as indicated by BP goals as above, staggering overnight for gentle BP control Assessment & Plan (10/27/2018 9:54 AM LINTER TENDER): Hypertension is unchanged. Dietary sodium restriction. Blood pressure will be reassessed in 4 weeks. Assessment & Plan (09/22/2018 11:38 AM LINTER TENDER): Hypertension remains elevated. He is increasing his [...] today Assessment & Plan (09/21/2017 11:33 AM LINTER TENDER): Blood pressure is well controlled today. Last visit we added HCTZ 12.5 mg daily. Continue current medications Assessment & Plan (08/10/2017 11:26 AM LINTER TENDER): Blood pressure is not controlled. Add hydrochlorothiazide 12.5 mg p.o. daily. He is compliant with medications but always add salt to food which I advised him not to do that. Assessment & Plan (07/20/2017 9:19 AM LINTER TENDER): Blood pressure remains uncontrolled. We will order renal Doppler ultrasound to rule out renal artery stenosis given the fact that he has peripheral vascular disease and coronary artery disease. I will increase amlodipine from 5-10 mg p.o. daily. If that does not control the blood pressure we will add hydrochlorothiazide 12.5 mg p.o. Daily. Coronary artery disease invo lving [place] coronary artery of quartz [place] heart without angina pectoris 07/20/2017 Assessment & Plan (10/30/2022 9:58 AM LINTER TENDER): - Continue home medications as able - Maintained on Brilinta as an outpatient; held 1 week prior to OR - Will discuss with surgery team when to safely resume post-procedure Assessment & Plan (10/27/2018 9:59 AM LINTER TENDER): Coronary artery disease is improving with lifestyle modifications. Continue current treatment regimen. Cardiac status will be reassessed in 3 months. No chest pain. Minimal SOB. Continue asa, statin, brilinta Assessment & Plan (09/22/2018 11:36 AM LINTER TENDER): Coronary artery disease is unchanged. Regular aerobic [...] BB. Assessment & Plan (09/21/2017 11:33 AM LINTER TENDER): Continue aspirin, Brilinta, Toprol XL and atorvastatin. Assessment & Plan (08/10/2017 11:27 AM LINTER TENDER): Continue Brilinta and aspirin. Asymptomatic. Assessment & Plan (07/20/2017 9:19 AM LINTER TENDER): Continue aspirin, Brilinta, Lipitor , metoprolol PVD (peripheral vascular disease) 07/20/2017 Assessment & Plan (10/27/2018 9:21 AM LINTER TENDER): S/P bilateral ALVA angioplasty; right EIA angioplasty/stent 11/21/14. S/P aortoiliac angioplasty/stent 05/28/09. Continues on asa, statin and brilinta Assessment & Plan (09/21/2017 11:34 AM LINTER TENDER): He follows up with vascular surgery at [facility] Assessment & Plan (08/10/2017 11:27 AM LINTER TENDER): Renal ultrasound suggest more than 60% stenosis in the right renal artery and infrarenal stenosis 50-70%. He follows up with Dr. Foley from [facility] Assessment & Plan (07/20/2017 9:20 AM LINTER TENDER): Patient will follow up with Dr. Foley [...] mGy 6 66 mGy 419 mGy DLP 2,174 mGycm 2,174 mGycm 0 mGycm Resolved Problems Problem Noted Date Diagnosed Date Resolved Date Dizzinesses 10/27/2018 02/09/2019 Assessment & Plan (10/27/2018 10:17 AM LINTER TENDER): Persistent dizziness. Has stopped caffeine intake. Has [...] device, implant or graft 02/09/2019 Atherosclerosis of quartz valley artery of extremity 04/15/20 16 02/09/2019 Assessment & Plan (09/22/2018 11:26 AM LINTER TENDER): 80% circumflex s/p RICHARD. 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 {plan; hypertension for POC:[id number]} Blood pressure will be reassessed {plan; follow-up 2 weeks/4weeks/3months:[id number]}. Increase amolodipine to 10 mg Continue all [...]
--- OUTSIDE RECORDS SUMMARY | 2025-04-14 12:06 | XMS_ITS | Encounter Summary ---
Author Organization [facility] Healthcare Address [address] [place] [address] Care Team Providers Care Clay Processing Labourer Name Role Phone Fuentes Orellana MD Primary Care Provider + [phone] Itz Iyer MD Unavailable [phone] Lupillo Davenport MD Unavailable [phone] Lupillo Davenport MD Unavailable [phone] Shawnee Mckniney MD Unavailable [phone] Chicho Clayton MD Unavailable Newton Weeks MD Unavailable [phone] Maria Guadalupe Palacios RN Unavailable Unava ilable Lupillo Davenport MD Unavailable [phone] Itz Iyer MD Unavailable [phone] Itz Iyer MD Unavailable [phone] Itz Iyer MD Unavailable [phone] Itz Iyer MD Unavailable [phone] Itz Iyer MD Unavailable [phone] Itz Iyer MD Unavailable [phone] Danis Meza NP Unavailable [phone] Antonette Owens NP Unavailable Aniceto Foley MD Unavailable Encounter Details Date Type Department Care Team (Late st Contact Info) Description 03/16/2018 Orders Only [facility] Health Information Management [address] [place] [address] Scanning, Provider Social History Tobacco Use Types Packs/Day Years Used Date Smoking Tobacco: Never Smokeless Tobacco: Never Alcohol Use Standard Drinks/Week Comments Yes 0 (1 standard drink = 0.6 oz pur e alcohol) Sex and Gender Information Value Date Recorded Sex Assigned at Not on file 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 Gender Identity Not on file Sexual Orientation Choose not to disclose 2018 8:58 AM CDT documented as of this encounter Plan of Treatment Upcoming Encounters Date Type Department Care Team (Latest Contact Info) Description 04/24/2025 8:30 AM CDT Hospital [facility] Operating Room 1 [place] [address] Aniceto Foley MD [address] [facility] [place], [place] [id number] PAD (peripheral artery disease) 04/24/2025 8:30 AM CDT - 04/24/2025 11:45 AM CDT Surgery [facility] Operating Room [address] [place] [address] Aniceto Foley MD [address] [facility] [place] [address] ANGIOGRAM - HYBRID ROOM aorto iliac angiogram documented as of this encounter Procedures Procedure Name Priority Date/Time Associated Diagnosis Comments SCAN - LABS 03/16/2018 documented in this encounter Results * SCAN - LABS (03/16/2018) us Provider Scanning Final Result documented in this encounter Visit Diagnoses Not on filedocumented in this encounter Care Teams Clay Processing Labourer Relationship Specialty Start Date End Date Fuentes Orellana MD PCP - General 11/28/16 Itz Iyer MD [address] [place] [address] Consulting Physician Urology 05/31/18 Lupillo Davenport MD [address] [place] [address] Referring Physician Radiation Oncology 05/31/18 Lupillo Davenport MD [address] [place] [address] Referring Physician Radiation Oncology 05/31/18 Shawnee Mckinney MD 4960 [facility] [address] [place] [address] Referring Physician Urology 06/03/18 Chicho Clayton MD 4921 [facility] [address] [place] [address] Medical Oncologist/Hematologis t Medical Oncology 06/07/18 Newton Weeks MD 49[address] [facility] [address] [place] [address] Referring Physician Radiation Oncology 06/07/18 Maria Guadalupe Palacios, RN Registered Nurse 06/10/18 Lupillo Davenport MD [address] [place] [address] Referring Physician Radiation Oncology 06/16/18 Itz Iyer MD [address] [place] [address] Consulting Physician Urology 06/17/18 06/17/18 Itz Iyer MD [address] [place] [address] Consulting Physician Urology 06/18/18 06/18/18 Itz Iyer MD [address] [place] [address] Consulting Physician Urology 06/18/18 06/18/18 Itz Iyer MD [address] [place] [address] Consulting Physician Urology 06/22/18 06/22/18 Itz Iyer MD [address] [place] [address] Consulting Physician Urology 07/01/18 07/01/18 Itz Iyer MD [address] [place] [address] Consulting Physician Urology 07/06/18 07/06/18 Danis Meza NP [address] [place] [address] Nurse Practitioner Urology 10/06/22 Antonette Owens NP [address] [place] [address] Nurse Practitioner Cardiovascular Disease 10/06/22 Aniceto Foley MD [address] [place] [address] Surgeon Vascular Surgery 10/31/22 documented as of this encounter
--- OUTSIDE RECORDS SUMMARY | 2025-04-14 12:06 | XMS_ITS | Continuity of Care Document ---
Author Organization [facility] Address [address] [place] [address] [place] [address] Phone Care Team Providers Care Mental Health Consultant Name Role Phone To Torres MD Unavailable Unavailable Advance Directives Directive Yes / No Effective Date File Name No Information Encounters Encounter Description Practice Location Reason(s) For Visit Diagnoses Date Provider Providers Copied on Encounter [facility], [id number] [place] [address] [address], [place], [place], [id number], tel:[phone] [facility] No Information Dec-0 5-200 5 Melissa Ariza. [address] [facility] [address], [place], [place], [id number], [place]. tel:[phone] Family History Family Member Type Diagnosis Age At Onset No Information Payers Payer name Insurance type Covered republican ID Authoriza tion(s) Medicaid [facility] [id number] Social History Type Description Quantity Date Captured [...]
--- OUTSIDE RECORDS SUMMARY | 2025-04-14 12:06 | XMS_ITS | Encounter Summary ---
Author Organization [facility] Address [address] [place] [address] Phone Care Team Providers Care Metal Coater Name Role Phone Fuentes Orellana MD Primary Care Provider [phone] Itz Iyer MD Unavailable [phone] Lupillo Davenport MD Unavailable [phone] Lupillo Davenport MD Unavailable [phone] Shawnee Mckinney MD Unavailable [phone] Chicho Clayton MD Unavailable Newton Weeks MD Unavailable Maria Guadalupe Palacios RN Unavailable Unava ilable Lupillo Davenport MD Unavailable [phone] Itz Iyer MD Unavailable [phone] Itz Iyer MD Unavailable [phone] Itz Iyer MD Unavailable [phone] Itz Iyer MD Unavailable [phone] Itz Iyer MD Unavailable [phone] Itz Iyer MD Unavailable [phone] ComDanis otto FIELD CROPS HARVEST MACHINE OPERATOR Unavailable Antonette Owens FIELD CROPS HARVEST MACHINE OPERATOR Unavailable Aniceto Foley MD Unavailable Encounter Details [...] on file 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 Gender Identity Not on file Sexual Orientation Choose not to disclose 2018 8:58 AM CDT documented as of this encounter Plan of Treatment Upcoming Encounters Date Type Department Care Team (Latest Contact Info) Description 04/24/2025 8:30 AM CDT Hospital Encounter [facility] Operating Room 1 [place] [address] Aniceto Foley MD [address] [facility] [place], [place] [id number] PAD (peripheral artery disease) 04/24/2025 8:30 AM CDT - 04/24/2025 11:45 AM CDT Surgery [facility] Operating Room [address] [place] [address] Aniceto Foley MD [address] [facility] [place] [address] ANGIOGRAM - HYBRID ROOM aorto iliac angiogram [...] on filedocumented in this encounter Care Teams Metal Coater Relationship Specialty Start Date End Date Fuentes Orellana MD PCP - General 11/28/16 Itz Iyer MD [address] [place] [address] Consulting Physician Urology 05/31/18 Lupillo Davenport MD [address] [place] [address] Referring Physician Radiation Oncology 05/31/18 Lupillo Davenport MD [address] [place] [address] Referring Physician Radiation Oncology 05/31/18 Shawnee Mckinney MD [address]60 [facility] [address] [place] [address] Referring Physician Urology 06/03/18 Chicho Clayton MD 49[address] [facility] [address] [place] [address] Medical Oncologist/Hematologis t Medical Oncology 06/07/18 Newton Weeks MD 49[address] [facility] [address] [place] [address] Referring Physician Radiation Oncology 06/07/18 Maria Guadalupe Palacios, RN Registered Nurse 06/10/18 Lupillo Davenport MD [address] [place] [address] Referring Physician Radiation Oncology 06/16/18 Itz Iyer MD [address] [address] Consulting Physician Urology 06/17/18 06/17/18 Itz Iyer MD [address] [place] [address] Consulting Physician Urology 06/18/18 06/18/18 Itz Iyer MD [address] [address] Consulting Physician Urology 06/18/18 06/18/18 Itz Ieyr MD [address] [address] Consulting Physician Urology 06/22/18 06/22/18 Itz Iyer MD [address] [address] Consulting Physician Urology 07/01/18 07/01/18 Itz Iyer MD [address] [address] Consulting Physician Urology 07/06/18 07/06/18 Danis Meza NP [address] [place] [address] Nurse Practitioner Urology 10/06/22 Antonette Owens NP [address] [place] [address] Nurse Practitioner Cardiovascular Disease 10/06/22 Aniceto Foley MD [address] [place] [address] Surgeon Vascular Surgery 10/31/22 documented as of this encounter
--- OUTSIDE RECORDS SUMMARY | 2025-04-14 12:06 | XMS_ITS | Encounter Summary ---
Author Organization [facility] Address [address] [place] [address] Phone Care Team Providers Care Pilot Teacher Name Role Phone Fuentes Orellana MD Primary Care Provider [phone] Brent Dickinson DO Unavailable [phone] Faviola Jiménez PRESSER AND BLOCKER [employer], SALESFORCE CONSULTANT Unavailable Shawnee Mckinney MD Unavailable Chicho Clayton MD Unavailable Lai Lambert PRESSER AND BLOCKER [employer], SALESFORCE CONSULTANT Unavailable [phone] Kami Meneses MD Unavailable [phone] Anette Bond MD Unavailable [phone] Kay Gordon PRESSER AND BLOCKER [employer], SALESFORCE CONSULTANT Unavailable Kami Meneses MD Unavailable [phone] Kami Meneses MD Unavailable [phone] Kami Meneses MD Unavailable [phone] Reason for Visit * Reason Comments Medication Refill Encounter Details Date Type Department Care Team (Late st Contact Info) Description 03/25/2021 Refill [facility] - Gastroenterology [facility] [address] [place] [address] Ingrid Mccloud Ashley, PAC [address] [place] [address] Medication Refill Social History Tobacco Use Types [...] 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 difficile Rule-Out 04/10/2021 04/10/20212020 12:16 AM CDT documented as of this encounter Care Teams Pilot Teacher Relationship Specialty Start Date End Date Fuentes Orellana MD [address] [facility] [place] [place] [address] PCP - General Family Medicine 07/06/15 Brent Dickinson DO [address] [facility] [place] [address] Gastroenterology 06/27/16 Faviola Jiménez APRN, SALESFORCE CONSULTANT [address] [facility] [place] [address] Nurse Practitioner Advanced Practice Nurse 07/22/16 Shawnee Mckinney MD 4960 [facility] [address] [place] [address] Urologist Urology 06/07/19 Chicho Clayton MD 4921 [facility] 7 [place] [address] Oncology 06/13/19 Lai Lambert APRN, SALESFORCE CONSULTANT [address] [place] [address] Nurse Practitioner Advanced Practice Nurse 02/10/23 Kami [facility]es MD [facility] [address] [address] Consulting Physician Urology 06/16/23 Anette Bond MD #[address] [place] [address] Consulting Physician Gastroenterology 12/25/22 Kay Gordon APRN, SALESFORCE CONSULTANT [address] [place] [address] Nurse Practitioner Advanced Practice Nurse 06/16/24 Kami Meneses MD [address] [address] Consulting Physician Urology 08/19/24 Kami Meneses MD [address] [address] Consulting Physician Urology 01/06/25 Kami Meneses MD [address] [address] Consulting Physician Urology 03/08/25 documented as of this encounter
--- OUTSIDE RECORDS SUMMARY | 2025-04-14 12:06 | XMS_ITS | Clinical Summary ---
Author Organization [facility] Address [address] [place] [address] Phone Care Team Providers Care Comfort Filler Name Role Phone Fuentes Orellana MD Primary Care Provider [phone] Allergies No known active allergies Medications pantoprazole [...] 2025 06/15/2018 Medical Devices Implanted Type Area Track Repair Laborer Device Identifier Shelf Expiration Date Model / Serial / Lot Ams 800 Urinary Control System(Penile Implant) Description:MRI conditional for 3T or less -danisha 01/04/19 Insurance MEDICARE PART A AND B [facility] [id number] Care Teams Comfort Filler Relationship Specialty Start Date End Date Fuentes Orellana MD [address] [place] [place] [address] PCP - General Family Practice 01/04/19
--- OUTSIDE RECORDS SUMMARY | 2025-04-14 12:06 | XMS_ITS | Encounter Summary ---
Author Organization [facility] Healthcare Address [address] [place] [address] Care Team Providers Care Global Sourcing Manager Name Role Phone Fuentes Orellana MD Primary Care Provider + [phone] Itz Iyer MD Unavailable [phone] Lupillo Davenport MD Unavailable [phone] Lupillo Davenport MD Unavailable [phone] Shawnee Mckinney MD Unavailable [phone] Chicho Clayton MD Unavailable Newton Weeks MD Unavailable [phone] Maria Guadalupe Palacios RN Unavailable Unava ilable Lupillo Davenport MD Unavailable [phone] Itz Iyer MD Unavailable [phone] Itz Iyer MD Unavailable +[phone] Itz Iyer MD Unavailable [phone] Itz Iyer MD Unavailable +[phone] Itz Iyer MD Unavailable [phone] Itz Iyer MD Unavailable [phone] Danis Meza NP Unavailable [phone] Antonette Owens NP Unavailable Aniceto Foley MD Unavailable [phone] Encounter Details Date Type Department Care Team (Late st Contact Info) Description 04/12/2018 Orders Only [facility] Health Information Management [address] [place] [address] Scanning, Provider Social History Tobacco Use Types Packs/Day Years Used Date Smoking Tobacco: Never Smokeless Tobacco: Never Alcohol Use Standard Drinks/Week Comments Yes 0 (1 standard drink = 0.6 oz pur e alcohol) Sex and Gender Information Value Date Recorded Sex Assigned at Not on file Legal Sex Male 12:32 AM SURG RN Gender Identity Not on file Sexual Orientation Choose not to disclose 2018 8:58 AM CDT documented as of this encounter Plan of Treatment Upcoming Encounters Date Type Department Care Team (Latest Contact Info) Description 04/24/2025 8:30 AM CDT Hospital Encounter [facility] Operating Room [address] [place] [address] Aniceto Foley MD [address] [facility]-01-01 [place], [place] [id number] PAD (peripheral artery disease) 04/24/2025 8:30 AM CDT - 04/24/2025 11:45 AM CDT Surgery [facility] Operating Room 1 [place] [address] Aniceto Foley MD [address] [place] [id number] [place] [address] ANGIOGRAM - HYBRID ROOM aorto iliac angiogram documented as of this encounter Procedures Procedure Name Priority Date/Time Associated Diagnosis Comments SCAN - RADIOLOGY/IMAGING 04/12/2018 documented in this encounter Results * SCAN - RADIOLOGY/IMAGING (04/12/2018) Anatomical Region Laterality Modality Other us Provider Scanning Edited Result - Final documented in this encounter Visit Diagnoses Not on filedocumented in this encounter Care Teams Global Sourcing Manager Relationship Specialty Start Date End Date Fuentes Orellana MD PCP - General 11/28/16 Itz Iyer MD [address] [place] [address] Consulting Physician Urology 05/31/18 Lupillo Davenport MD [address] [place] [address] Referring Physician Radiation Oncology 05/31/18 Lupillo Davenport MD [address] [place] [address] Referring Physician Radiation Oncology 05/31/18 Shawnee Mckinney MD 4960 [facility] [address] [place] [address] Referring Physician Urology 06/03/18 Chicho Clyaton MD 49[address] [facility] [address] [place] [address] Medical Oncologist/Hematologis t Medical Oncology 06/07/18 Newton Weeks MD 4921 [facility] [address] [place] [address] Referring Physician Radiation Oncology 06/07/18 Maria Guadalupe Palacios, RN Registered Nurse 06/10/18 Lupillo Davenport MD [address] [place] [address] Referring Physician Radiation Oncology 06/16/18 Itz Iyer MD [address] [place] [address] Consulting Physician Urology 06/17/18 06/17/18 Itz Iyer MD [address] [place] [address] Consulting Physician Urology 06/18/18 06/18/18 Itz Iyer MD [address] [place] [address] Consulting Physician Urology 06/18/18 06/18/18 Itz Iyer MD [address] [place] [address] Consulting Physician Urology 06/22/18 06/22/18 Itz Iyer MD [address] [place] [address] Consulting Physician Urology 07/01/18 07/01/18 Itz Iyer MD [address] [place] [address] Consulting Physician Urology 07/06/18 07/06/18 Danis Meza NP [address] [place] [address] Nurse Practitioner Urology 10/06/22 Antonette Owens NP [address] [place] [address] Nurse Practitioner Cardiovascular Disease 10/06/22 Aniceto Foley MD [address] [place] [address] Surgeon Vascular Surgery 10/31/22 documented as of this encounter
--- OUTSIDE RECORDS SUMMARY | 2025-04-14 12:06 | XMS_ITS | Encounter Summary ---
Author Organization [facility] Address [address] [place] [address] Phone Care Team Providers Care Twisting Department End Finder Name Role Phone Fuentes Orellana MD Primary Care Provider Brent Dickinson DO Unavailable [phone] Faviola Jiménez MANAGED SERVICES SALES CONSULTANT, HEAD SCORER Unavailable Shawnee Mckinney MD Unavailable Chicho Clayton MD Unavailable Lai Lambert MANAGED SERVICES SALES CONSULTANT, HEAD SCORER Unavailable [phone] Kami Meneses MD Unavailable [phone] Anette Bond MD Unavailable [phone] Kay Gordon MANAGED SERVICES SALES CONSULTANT, HEAD SCORER Unavailable Kami Meneses MD Unavailable [phone] Kami Meneses MD Unavailable [phone] Kami Meneses MD Unavailable [phone] Encounter Details Date Type Department Care Team (Late st Contact Info) Description 12/16/2024 Telephone [facility] [address] [place] [address] Kami Meneses MD #[address] [facility] [address] [place] [address] Social History Tobacco Use Types Packs/Day Years [...] 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 Chicho Clayton at [facility] for prostate. * Telephone Encounter - Kami Meneses MD - 12/16/2024 11:45 AM CDT Can you ask the patient who follows him for his prostate cancer? documented in this encounter Plan of Treatment Upcoming Encounters Date Type Department Care Team (Late st Contact Info) Description 04/28/2025 11:15 AM CDT Office Visit [facility] [address] [place] [address] Kami Meneses MD #[address] [facility] [address] [place] [address] documented as of this encounter Visit Diagnoses Not on filedocumented in this encounter Care Teams Twisting Department End Finder Relationship Specialty Start Date End Date Fuentes Orellana MD [address] [place] [address] PCP - General Family Medicine 07/06/15 Brent Dickinson DO [address] [facility] [address] Gastroenterology 06/27/16 Faviola Jiménez APRN, HEAD SCORER [address] [place] [address] Nurse Practitioner Advanced Practice Nurse 07/22/16 Shawnee Mckinney MD 4960 [facility] 8242 [place] [address] Urologist Urology 06/07/19 Chicho Clayton MD 4921 [facility] 7 [place] [address] Oncology 06/13/19 Lai Lambert APRN, HEAD SCORER #2 [place] [address] Nurse Practitioner Advanced Practice Nurse 02/10/23 Kami Meneses MD #[address] [address] Consulting Physician Urology 06/16/23 Anette Bond MD #2 [place] [address] Consulting Physician Gastroenterology 12/25/22 Kay Gordon APRN, HEAD SCORER #2 [place] [address] Nurse Practitioner Advanced Practice Nurse 06/16/24 Kami Meneses MD #[address] [address] Consulting Physician Urology 08/19/24 Kami Meneses MD #[address] [address] Consulting Physician Urology 01/06/25 Kami Meneses MD #[address] [address] Consulting Physician Urology 03/08/25 documented as of this encounter
--- OUTSIDE RECORDS SUMMARY | 2025-04-14 12:06 | XMS_ITS | Clinical Summary ---
Author Organization [facility] Address [address] [place] [address] Care Team Providers Care Residential Service Technician Name Role Phone Fuentes Orellana MD Primary Care Provider [phone] Allergies No known active allergies Medications amLODIPine [...] age to complete this topic Insurance MEDICARE [facility] Care Teams Residential Service Technician Relationship Specialty Start Date End Date Fuentes Orellana MD [address] [place] [id number] PCP - General FAMILY PRACTICE 11/29/22
--- OUTSIDE RECORDS SUMMARY | 2025-04-14 12:06 | XMS_ITS | Encounter Summary ---
Author Organization [facility] Address [address] [place] [address] Phone Care Team Providers Care Motion Study Technician Name Role Phone Fuentes Orellana MD Primary Care Provider [phone] Brent Dickinson DO Unavailable [phone] Faviola Jiménez CONDUCTOR PULLMAN, TRANSMISSION TESTER Unavailable Shawnee Mckinney MD Unavailable Chicho Clayton MD Unavailable Lai Lambert CONDUCTOR PULLMAN, TRANSMISSION TESTER Unavailable [phone] Kami Meneses MD Unavailable [phone] Anette Bond MD Unavailable [phone] Kay Gordon CONDUCTOR PULLMAN, TRANSMISSION TESTER Unavailable Kami Meneses MD Unavailable [phone] Kami Meneses MD Unavailable [phone] Kami Meneses MD Unavailable [phone] Reason for Visit * Reason Comments Medication Refill Encounter Details Date Type Department Care Team (Late st Contact Info) Description 11/12/2022 Refill [facility] - Gastroenterology [facility] #2 [place] [address] Ingrid Mccloud Ashley, PAC [address] [place] [address] Medication Refill Social History Tobacco Use Types [...] 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 Not on file [...] 11:15 AM CDT Office Visit [facility] #[address] [place] [address] Kami Meneses MD #[address] [address] documented as of this encounter Visit Diagnoses Not on filedocumented in this encounter Care Teams Motion Study Technician Relationship Specialty Start Date End Date Fuentes Orellana MD [address] [place] [address] PCP - General Family Medicine 07/06/15 Brent Dickinson DO [address] [place] [address] Gastroenterology 06/27/16 Faviola Jiménez APRN, TRANSMISSION TESTER [address] [place] [address] Nurse Practitioner Advanced Practice Nurse 07/22/16 Shawnee Mckinney MD 4960 [facility] 8242 [place] [address] Urologist Urology 06/07/19 Chicho Clayton MD 4921 [facility] 7 [place] [address] Oncology 06/13/19 Lai Lambert APRN, TRANSMISSION TESTER #2 [place] [address] Nurse Practitioner Advanced Practice Nurse 02/10/23 Kami Meneses MD #2 [facility] [address] [address] Consulting Physician Urology 06/16/23 Anette Bond MD #2 [facility] [place] [address] Consulting Physician Gastroenterology 12/25/22 Kay Gordon APRN, TRANSMISSION TESTER #2 [facility] [place] [address] Nurse Practitioner Advanced Practice Nurse 06/16/24 Kami Meneses MD #2 [address], [facility] 300 [place] [address] Consulting Physician Urology 08/19/24 Kami Meneses MD #[address] [place] [address] Consulting Physician Urology 01/06/25 Kami Meneses MD #[address] [place] [address] Consulting Physician Urology 03/08/25 documented as of this encounter
--- OUTSIDE RECORDS SUMMARY | 2025-04-14 12:06 | XMS_ITS | Encounter Summary ---
Author Organization [facility] Address [address] [place] [address] Phone Care Team Providers Care Automatic Shirring Machine Operator Name Role Phone Fuentes Orellana MD Primary Care Provider [phone] Brent Dickinson DO Unavailable [phone] Faviola Jiménez BANK CREDIT CARD COLLECTION CLERK, MANAGER INDUSTRIAL Unavailable Shawnee Mckinney MD Unavailable Chicho Clayton MD Unavailable Lai Lambert BANK CREDIT CARD COLLECTION CLERK, MANAGER INDUSTRIAL Unavailable [phone] Kami Meneses MD Unavailable [phone] Anette Bond MD Unavailable [phone] Kay Gordon BANK CREDIT CARD COLLECTION CLERK, MANAGER INDUSTRIAL Unavailable Kami Meneses MD Unavailable [phone] Kami Meneses MD Unavailable Kami Meneses MD Unavailable [phone] Reason for Visit * Reason Comments Medication Refill Encounter Details Date Type Department Care Team (Late st Contact Info) Description 10/15/2021 Refill [facility] - Gastroenterology [facility] #2 [place] [address] Ingrid Mccloud Ashley, PAC [address] [place] [address] Medication Refill Social History Tobacco Use Types [...] 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 ITIONING COACH documented in this encounter Plan of Treatment Upcoming Encounters Date Type Department Care Team (Late st Contact Info) Description 04/28/2025 11:15 AM CDT Office Visit [facility] #2 [place] [address] Kami Meneses MD #[address] [address] documented as of this encounter Visit Diagnoses Not on filedocumented in this encounter Care Teams Automatic Shirring Machine Operator Relationship Specialty Start Date End Date Fuentes Orellana MD [address] [place] [address] PCP - General Family Medicine 07/06/15 Brent Dickisnon DO [address] [address] Gastroenterology 06/27/16 Faviola Jiménez APRN, MANAGER INDUSTRIAL [address] [place] [address] Nurse Practitioner Advanced Practice Nurse 07/22/16 Shawnee Mckinney MD [address] [facility] 8242 [place] [address] Urologist Urology 06/07/19 Chicho Clayton MD 4921 [facility] 7 [place] [address] Oncology 06/13/19 Lai Lambert APRN, MANAGER INDUSTRIAL #2 [place] [address] Nurse Practitioner Advanced Practice Nurse 02/10/23 Kami Meneses MD #[address] [address] Consulting Physician Urology 06/16/23 Anette Bond MD #2 [place] [address] Consulting Physician Gastroenterology 12/25/22 Kay Gorodn APRN, MANAGER INDUSTRIAL #2 [place] [address] Nurse Practitioner Advanced Practice Nurse 06/16/24 Kami Meneses MD #2 [address], [facility] 300 [place] [address] Consulting Physician Urology 08/19/24 Kami Meneses MD #[address], [facility] 300 [place] [address] Consulting Physician Urology 01/06/25 Kami Meneses MD #[address], [facility] 300 [place] [address] Consulting Physician Urology 03/08/25 documented as of this encounter
--- OUTSIDE RECORDS SUMMARY | 2025-04-14 12:06 | XMS_ITS | Clinical Summary ---
Author Organization [facility] Address [address], [facility] [address] [place] [address] Phone Care Team Providers Care Fibre Optics Jointer Name Role Phone Fuentes Orellana MD Primary Care Provider [phone] Brent Dickinson DO Unavailable [phone] Faviola Jiménez TODDLER TEACHER, FIELD COORDINATOR Unavailable Shawnee Mckinney MD Unavailable Chicho Clayton MD Unavailable Lai Lambert TODDLER TEACHER, FIELD COORDINATOR Unavailable [phone] Kami Meneses MD Unavailable [phone] Anette Bond MD Unavailable [phone] Kay Gordon APRN, FIELD COORDINATOR Unavailable Kami Meneses MD Unavailable [phone] Kami Meneses MD Unavailable [phone] Kami Meneses MD Unavailable [phone] Allergies No known active allergies Medications [...] PHYSICIAN GROUP UROLOGY #[address] [place] [address] Kami Meneses MD Pain 03/10/2025 2:15 PM CDT Office Visit [facility] [address] [place] [address] Kami Meneses MD Stress incontinence (female) (male) (Primary Dx); Prostate cancer (HCC) Discharge Disposition: Discharged to home or Selfcare 03/10/2025 Travel 01/20/2025 10:00 AM CDT Office Visit [facility] [address] [place] [address] Kami Meneses MD UTI symptoms (Primary Dx); Stress incontinence (female) (male); Dysuria Discharge Disposition: Discharged to home or Selfcare 01/20/2025 Travel 01/13/2025 Telephone [facility] #[address] [place] [address] Kami Meneses MD from Last 3 Months [...] 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 A well lubricated 16 Irish flexible cystoscope was introduced transurethrally. Findings: Urethra: No evidence of erosion, good coaptation noted The patient tolerated the procedure well. Specimen sent: None Plan: See progress note Kami Gleason MD [place] - SURGERY Final Result * POCT UA [...] Recently Relevant to Health Maintenance Insurance MEDICARE [facility] Care Teams Fibre Optics Jointer Relationship Specialty Start Date End Date Fuentes Orellana MD [address] [facility] [place] [address] PCP - General Family Medicine 07/06/15 Brent Dickinson DO [address] [facility] [place] [address] Gastroenterology 06/27/16 Faviola Jiménez TODDLER TEACHER, FIELD COORDINATOR [address] [facility] [place] [address] Nurse Practitioner Advanced Practice Nurse 07/22/16 Shawnee Mckinney MD 4960 [facility] 8242 [place] [address] Urologist Urology 06/07/19 Chicho Clayton MD 4921 [facility] 7 [place] [address] Oncology 06/13/19 Lai Lambert APRN, FIELD COORDINATOR #2 [place] [address] Nurse Practitioner Advanced Practice Nurse 02/10/23 Kami Meneses MD #[address] [address] Consulting Physician Urology 06/16/23 Anette Bond MD #2 [place] [address] Consulting Physician Gastroenterology 12/25/22 Kay Gordon APRN, FIELD COORDINATOR #[address] [place] [address] Nurse Practitioner Advanced Practice Nurse 06/16/24 Kami Meneses MD #2 [address], [facility] [address] [place] [address] Consulting Physician Urology 08/19/24 Kami Meneses MD #2 [address], [facility] [address] [place] [address] Consulting Physician Urology 01/06/25 Kami Meneses MD #2 [place] [address], [facility] [address] [place] [address] Consulting Physician Urology 03/08/25
--- OUTSIDE RECORDS SUMMARY | 2025-04-14 12:06 | XMS_ITS | Encounter Summary ---
Author Organization [facility] Healthcare Address [address] [place] [address] Care Team Providers Care Multiple Needle Stitcher Name Role Phone Fuentes Orellana MD Primary Care Provider [phone] Itz Iyer MD Unavailable [phone] Lupillo Davenport MD Unavailable [phone] Lupillo Davenport MD Unavailable [phone] Shawnee Mckinney MD Unavailable [phone] Chicho Clayton MD Unavailable Newton Weeks MD Unavailable [phone] Maria Guadalupe Palacios RN Unavailable Unava ilable Lupillo Davenport MD Unavailable [phone] Itz Iyer MD Unavailable [phone] Itz Iyer MD Unavailable [phone] Itz Iyer MD Unavailable [phone] Itz Iyer MD Unavailable [phone] Itz Iyer MD Unavailable [phone] Itz Iyer MD Unavailable [phone] Danis Meza NP Unavailable [phone] Antonette Owens NP Unavailable Aniceto Foley MD Unavailable Encounter Details Date Type Department Care Team (Late st Contact Info) Description 03/30/2018 Orders Only [facility] Health Information Management [address] [place] [address] Scanning, Provider Social History Tobacco Use Types Packs/Day Years Used Date Smoking Tobacco: Never Smokeless Tobacco: Never Alcohol Use Standard Drinks/Week Comments Yes 0 (1 standard drink = 0.6 oz pur e alcohol) Sex and Gender Information Value Date Recorded Sex Assigned at Not on file Legal Sex Male 12:32 AM LAB ASST Gender Identity Not on file Sexual Orientation Choose not to disclose 2018 8:58 AM CDT documented as of this encounter Plan of Treatment Upcoming Encounters Date Type Department Care Team (Latest Contact Info) Description 04/24/2025 8:30 AM CDT Hospital Encounter Operating Room 1 [place] [address] Aniceto Foley MD [address] [id number] [place], [place] [id number] PAD (peripheral artery disease) 04/24/2025 8:30 AM CDT - 04/24/2025 11:45 AM CDT Surgery Operating Room 1 [place] [address] Aniceto Foley MD [address] [id number] [place] [address] ANGIOGRAM - HYBRID ROOM aorto iliac angiogram documented as of this encounter Procedures Procedure Name Priority Date/Time Associated Diagnosis Comments SCAN - LABS 03/30/2018 documented in this encounter Results * SCAN - LABS (03/30/2018) us Provider Scanning Final Result documented in this encounter Visit Diagnoses Not on filedocumented in this encounter Care Teams Multiple Needle Stitcher Relationship Specialty Start Date End Date Fuentes Orellana MD PCP - General 11/28/16 Itz Iyer MD [address] [place] [address] Consulting Physician Urology 05/31/18 Lupillo Davenport MD [address] [place] [address] Referring Physician Radiation Oncology 05/31/18 Lupillo Davenport MD [address] [place] [address] Referring Physician Radiation Oncology 05/31/18 Shawnee Mckinney MD 4960 [facility] [address] [place] [address] Referring Physician Urology 06/03/18 Chicho Clayton MD 4921 [facility] [address] [place] [address] Medical Oncologist/Hematologis t Medical Oncology 06/07/18 Newton Weeks MD 4921 [facility] [address] [place] [address] Referring Physician Radiation Oncology 06/07/18 Maria Guadalupe Palacios, RN Registered Nurse 06/10/18 Lupillo Davenport MD [address] [place] [address] Referring Physician Radiation Oncology 06/16/18 Itz Iyer MD [address] [place] [address] Consulting Physician Urology 06/17/18 06/17/18 Itz Iyer MD [address] [place] [address] Consulting Physician Urology 06/18/18 06/18/18 Itz Iyer MD [address] [place] [address] Consulting Physician Urology 06/18/18 06/18/18 Itz Iyer MD [address] [place] [address] Consulting Physician Urology 06/22/18 06/22/18 Itz Iyer MD [address] [place] [address] Consulting Physician Urology 07/01/18 07/01/18 Itz Iyer MD [address] [place] [address] Consulting Physician Urology 07/06/18 07/06/18 Danis Meza NP [address] [place] [address] Nurse Practitioner Urology 10/06/22 Antonette Owens NP [address] [place] [address] Nurse Practitioner Cardiovascular Disease 10/06/22 Aniceto Foley MD [address] [place] [address] Surgeon Vascular Surgery 10/31/22 documented as of this encounter
--- OUTSIDE RECORDS SUMMARY | 2025-04-14 12:06 | XMS_ITS | Clinical Summary ---
Author Organization [facility] [address] Address [address] [place] [address] Care Team Providers Care Resource Economist Name Role Phone Fuentes Orellana MD Primary Care Provider [phone] Itz Iyer MD Unavailable Shawnee Mckinney MD Unavailable [phone] Chicho Clayton MD Unavailable Maria Guadalupe Palcaios RN Unavailable Unava ilable Lupillo Davenport MD Unavailable [phone] Danis Meza STUDENT RECORDS SPECIALIST Unavailable [phone] Antonette Owens NP Unavailable Aniceto Foley MD Unavailable Allergies Active Allergy Reactions Criticality Noted Date Comments Semaglutide Mental status changes Low 04/03/2025 Medications ACCU-CHEK DANNY PLUS TEST STRP strip U UTD BID FOR DIABETES MELLITUS 1 04/29/20 19 Active ACCU-CHEK DANNY PLUS METER misc U UTD FOR NEW ONSET DIABETES MELLITUS 0 04/29/20 19 Active ACCU-CHEK SOFTCLIX LANCETS lancets USE TO TEST BID 0 04/29/20 19 Active ALPRAZolam (XANAX) 0.5 mg tablet Take 1 tablet (0.5 mg total) by mouth 3 (three) times a day as needed for anxiety 06/13/20 19 Active allopurinoL (ZYLOPRIM) 300 mg tabletIndicat ions:preventi on of acute gout attack Take 1 tablet (300 mg total) by mouth every morning 10/10/19 21 Active Kerendia 10 mg tabletIndicat ions:chronic kidney disease associated with type 2 diabetes Take 1 tablet by mouth every morning 05/11/20 24 Active nitroglycerin (NITROSTAT) 0.3 mg SL tabletIndicat ions:acute episode of anginal pain Place 1 tablet (0.3 mg total) under the tongue every 5 (five) minutes as needed for chest pain 25 tablet 3 08/09/20 24 025 Active aspirin 81 mg enteric coated tabletIndicat ions:primary prevention of coronary heart disease Take 1 tablet (81 mg total) by mouth every morning Active chlorthalidon e (HYGROTON) 25 mg tabletIndicat ions:hyperten arcelia Take 1 tablet (25 mg total) by mouth every morning Active telmisartan (MICARDIS) 80 mg tabletIndicat ions:hyperten arcelia Take 1 tablet (80 mg total) by mouth every morning Active amLODIPine (NORVASC) 5 mg tabletIndicat ions:hyperten arcelia Take 1 tablet (5 mg total) by mouth every morning Active pantoprazole DR (PROTONIX) 40 mg EC tabletIndicat ions:Treatmen t of Non-Bleeding Gastric Disorder Take 1 tablet (40 mg total) by mouth every morning Active linaGLIPtin (TRADJENTA) 5 mg tabletIndicat ions:type 2 diabetes mellitus Take 1 tablet (5 mg total) by mouth every morning Active glimepiride (AMARYL) 1 mg tabletIndicat ions:type 2 diabetes mellitus Take 1 tablet (1 mg total) by mouth 2 (two) times a day before breakfast and dinner 12/07/19 25 Active Gvoke HypoPen 2-Pack 1 mg/0.2 mL auto-injector 12/08/19 25 Active metoprolol tartrate (LOPRESSOR) 25 mg immediate release tabletIndicat ions:Coronary artery disease involving chilkoot coronary artery of chilkoot heart without angina pectoris TAKE 1 TABLET(25 MG) BY MOUTH TWICE DAILY 90 tablet 3 02/28/20 25 Active Additional Information Patient taking differently:25 mg oral 2 times daily,Indications: hypertension, Informant: Self, Reported on 04/03/2025 rosuvastatin (CRESTOR) 40 mg tablet TAKE 1 TABLET(40 MG) BY MOUTH DAILY 30 tablet 3 03/21/20 25 Active Additional Information Patient taking differently: 40 mgoralNightly, Indications: hyperlipidemia, Informant: Self, Reported on 04/03/2025 gabapentin (NEURONTIN) 100 mg capsuleIndica tions:Diabeti c Peripheral Neuropathy Take 1 capsule (100 mg total) by mouth 3 (three) times a day 03/23/20 25 Active albuterol HFA (PROVENTIL HFA,VENTOLIN HFA,PROAIR HFA) 90 mcg/actuation inhaler Inhale 1 puff every 6 (six) hours as needed for wheezing or shortness of breath 02/09/20 25 Active acetaminophen (TYLENOL) 325 mg tablet Take 2 tablets (650 mg total) by mouth every 6 (six) hours as needed for pain Active Brilinta 60 mg tabletIndicat ions:Thrombos is Prevention after PCI Take 1 tablet (60 mg total) by mouth 2 (two) times a day 180 tablet 3 04/12/20 25 Active alendronate (FOSAMAX) 70 mg tablet Take 1 tablet (70 mg total) by mouth every 7 days Take in the morning with a full glass of water, on an empty stomach, and do not take anything else by mouth or lie down for the next 30 min. 025 Discontinued cholecalcifer ol (Vitamin D3) 5,000 unit tablet Take 1 tablet (5,000 Units total) by mouth 025 Discontinued rosuvastatin (CRESTOR) 40 mg tablet TAKE 1 TABLET(40 MG) BY MOUTH DAILY 30 tablet 3 11/03/19 25 025 Discontinued HYDROcodone-a cetaminophen (NORCO) 5-325 mg per tabletIndicat ions:Pain Take 1 tablet by mouth every 6 (six) hours as needed for pain 15 tablet 11/10/19 25 025 Discontinued cephalexin (KEFLEX) 500 mg capsuleIndica tions:Prophyl axis, Medical Take 1 capsule (500 mg total) by mouth 2 (two) times a day 12 capsule 11/12/19 25 025 Discontinued Brilinta 60 mg tablet Take 1 tablet (60 mg total) by mouth 2 (two) times a day 180 tablet 2 02/28/20 25 025 Discontinued(Re order) rosuvastatin (CRESTOR) 40 mg tablet Take 1 tablet (40 mg total) by mouth nightly 025 Discontinued Active Problems Problem Noted Date Diagnosed Date [...] (10/21/2022): Added automatically from request for surgery [id number] Assessment & Plan (10/30/2022 2:56 PM PLATE FILLER): - OR 3/2 for planned R CEA - OU status, Q2h NV/VS monitoring - Bedrest today, OOB/PT POD #1 - SBP goal 100-160, nicardipine for elevated BP - Continue aspirin and statin - Plan to stager home medications and resume overnight Atherosclerosis of chilkoot ar teries of extremities with intermittent claudication, bilateral legs 06/03/2022 Melanoma 01/10/2021 Anxiety 01/10/2021 DM (diabetes mellitus) 01/10/2021 Assessment & Plan (10/30/2022 9:59 AM PLATE FILLER): - A1c 7.6% 10/2022 - SSI while inpatient - CC diet when eating Elevated left ventricular end-diastolic pressure (LVEDP) 11/15/2019 Encounter for surgical after care following surgery of circulatory system 05/20/2019 Prostate cancer 09/10/2018 Assessment & Plan (10/27/2018 9:53 AM PLATE FILLER): Follows with urology, has his PSA monitored it is increasing, but still WNL 1.4 Assessment & Plan (09/22/2018 11:35 AM PLATE FILLER): Has close follow up with his oncologist. His PSA was slightly elevated on last check. Hyperlipidemia 09/21/2017 Assessment & Plan (06/30/2018 9:38 AM CDT): His last lipid panel was within acceptable range; he will continue on a high intensity statin. Assessment & Plan (09/21/2017 11:34 AM PLATE FILLER): Continue Lipitor 40 mg daily. Essential hypertension 07/20/2017 Assessment & Plan (10/30/2022 2:57 PM PLATE FILLER): - Tight BP goals post-procedure - Continue home medications as indicated by BP goals as above, staggering overnight for gentle BP control Assessment & Plan (10/27/2018 9:54 AM PLATE FILLER): Hypertension is unchanged. Dietary sodium restriction. Blood pressure will be reassessed in 4 weeks. Assessment & Plan (09/22/2018 11:38 AM PLATE FILLER): Hypertension remains elevated. He is increasing his [...] today Assessment & Plan (09/21/2017 11:33 AM PLATE FILLER): Blood pressure is well controlled today. Last visit we added HCTZ 12.5 mg daily. Continue current medications Assessment & Plan (08/10/2017 11:26 AM PLATE FILLER): Blood pressure is not controlled. Add hydrochlorothiazide 12.5 mg p.o. daily. He is compliant with medications but always add salt to food which I advised him not to do that. Assessment & Plan (07/20/2017 9:19 AM PLATE FILLER): Blood pressure remains uncontrolled. We will order renal Doppler ultrasound to rule out renal artery stenosis given the fact that he has peripheral vascular disease and coronary artery disease. I will increase amlodipine from 5-10 mg p.o. daily. If that does not control the blood pressure we will add hydrochlorothiazide 12.5 mg p.o. Daily. Coronary artery disease invo lving chilkoot coronary artery of chilkoot heart without angina pectoris 07/20/2017 Assessment & Plan (10/30/2022 9:58 AM PLATE FILLER): - Continue home medications as able - Maintained on Brilinta as an outpatient; held 1 week prior to OR - Will discuss with surgery team when to safely resume post-procedure Assessment & Plan (10/27/2018 9:59 AM PLATE FILLER): Coronary artery disease is improving with lifestyle modifications. Continue current treatment regimen. Cardiac status will be reassessed in 3 months. No chest pain. Minimal SOB. Continue asa, statin, brilinta Assessment & Plan (09/22/2018 11:36 AM PLATE FILLER): Coronary artery disease is unchanged. Regular aerobic [...] BB. Assessment & Plan (09/21/2017 11:33 AM PLATE FILLER): Continue aspirin, Brilinta, Toprol XL and atorvastatin. Assessment & Plan (08/10/2017 11:27 AM PLATE FILLER): Continue Brilinta and aspirin. Asymptomatic. Assessment & Plan (07/20/2017 9:19 AM PLATE FILLER): Continue aspirin, Brilinta, Lipitor , metoprolol PVD (peripheral vascular disease) 07/20/2017 Assessment & Plan (10/27/2018 9:21 AM PLATE FILLER): S/P bilateral ALVA angioplasty; right EIA angioplasty/stent 11/21/14. S/P aortoiliac angioplasty/stent 05/28/09. Continues on asa, statin and brilinta Assessment & Plan (09/21/2017 11:34 AM PLATE FILLER): He follows up with vascular surgery at [facility] Assessment & Plan (08/10/2017 11:27 AM PLATE FILLER): Renal ultrasound suggest more than 60% stenosis in the right renal artery and infrarenal stenosis 50-70%. He follows up with Dr. Foley from vascular surgery at [facility] Assessment & Plan (07/20/2017 9:20 AM PLATE FILLER): Patient will follow up with Dr. Foley from vascular surgery. He does have some claudication when he walks. Intrinsic urethral sphincter deficiency 06/08/20 15 Resolved Problems Problem Noted Date Diagnosed Date Resolved Date Dizzinesses 10/27/2018 02/09/2019 Assessment & Plan (10/27/2018 10:17 AM PLATE FILLER): Persistent dizziness. Has stopped caffeine intake. Has [...] implant or graft 6 02/09/2019 Atherosclerosis of chilkoot artery of extremity 04/15/20 16 02/09/2019 Assessment & Plan (09/22/2018 11:26 AM PLATE FILLER): 80% circumflex s/p RICHARD. Moderate 30 % LAD with bridging Impotence of organic origin 09/18/2015 02/09/2019 Urinary tract infection 01/18/201501/29 Incontinence 01/18/2015 02/09/2019 Stricture, urethra 07/31/2011 9 Overview (12/10/2017): Description: Dilation 06/09/11 Nocturia 11/28/2010 02/09/2019 Hypertension 05/16/2009 02/09/2019 Assessment & Plan (10/27/2018 10:11 AM PLATE FILLER): Hypertension is {improving/stable/worsenin}. {plan; hypertension for POC:[id number]} Blood pressure will be reassessed {plan; follow-up 2 weeks/4weeks/3months:[id number]}. Increase amolodipine to 10 mg Continue all [...] Encounters Date Type Department Care Team Description 04/05/2025 Telephone [facility] Medical Group Cardiology [address] [place] [address] Kay Ward NP 03/28/2025 11:00 AM CDT Office Visit [facility] Oncology [address] [facility] Floor 5 [place] [address] Chicho Clayton MD Prostate cancer (HCC) (Primary Dx) 03/28/2025 10:00 AM CDT Lab [facility] Oncology Lab [facility] Floor 5 [place] [address] Prostate cancer (HCC) 03/28/2025 9:45 AM CDT Lab [facility] - Lab Collection [address] [facility] Floor 5 [place] [address] Prostate cancer (HCC) 03/24/2025 Orders Only [facility] Surgery [facility] 8th [place] [address] [place] [address] Aniceto Foley MD Atherosclerosis of chilkoot arteries of extremities with intermittent claudication, right leg (Primary Dx) 03/17/2025 12:15 PM CDT Pre-Admission Testing [facility] Pre Anesthesia Testing [address] [place] [phone] Preoperative testing (Primary Dx) 03/16/2025 11:59 PM CDT Anesthesia Event [facility] Operating Room [facility] [place] [address] Carrie Silva PA 03/08/2025 10:15 AM CDT Office Visit [facility] Surgery [address] [place] [address] 8th [place] [address] [place] [address] Aniceto Foley MD PVD (peripheral vascular disease) (Primary Dx); Atherosclerosis of chilkoot arteries of extremities with intermittent claudication, bilateral legs 03/08/2025 9:30 AM CDT Ancillary Procedure [facility] Vascular [facility] [address] [facility] 8th [place] [address] Atherosclerosis of chilkoot arteries of extremities with intermittent claudication, bilateral legs 03/08/2025 7:49 AM CDT - 03/08/2025 11:59 PM CDT Hospital Encounter 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 No 11/11/2024 Social Connection and Isolation Panel Answer Date Recorded In a typical week, how many times do you talk on the phone with family, friends, or neighbors? More than three times a week 11/11/2024 How often do you get togethe r with friends or relatives? Once a week 11/11/2024 How often do you attend chur ch or buddhist services? More than 4 times per year 11/11/2024 Do you belong to any clubs o r organizations such as methodist groups, unions, fraternal or athletic groups, or [...] alcohol? 4 or more times a week 04/03/2025 Q2: How many drinks containi ng alcohol do you have on a typical day when you are drinking? 1 or 2 Q3: How often do you have si x or more drinks on one occasion? Never 04/03/2025 Overall Financial Resource Strain (CARDIA) Answe r [...] making you feel afraid or unsafe? Denies 03/17/2025 Sex and Gender Information Value Date Recorded Sex Assigned at Not on file Legal Sex Male 12:32 AM PLATE FILLER Gender Identity Not on file Sexual Orientation Choose not to disclose 2018 8:58 AM CDT Occupation Industry Job 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 Date retired Not on file Not on file Not on file Obstetrics History Last Filed Vital Signs Vital Sign Reading Time Taken Comments Blood Pressure 129/68 03/28/2025 10:00 AM CDT Pulse 67 03/28/2025 10:00 AM CDT Temperature 36.9 C (98.4 F) 03/28/2025 10:00 AM CDT Respiratory Rate 18 03/28/2025 10:00 AM CDT Oxygen Saturation 96% 03/28/2025 10:00 AM CDT Inhaled Oxygen Concentration - - Weight 74.8 kg (165 lb) 04/03/2025 9:25 AM CDT Height 162.6 cm (5' 4) 04/03/2025 9:25 AM CDT Body Mass Index 28.32 04/03/2025 9:25 AM CDT Plan of Treatment Upcoming Encounters Date Type Department Care Team (Latest Contact Info) Description 04/24/2025 8:30 AM CDT Hospital Encounter [facility] Operating Room 1 [place] [address] Aniceto Foley MD [address] [facility] [address] [place], [place] [id number] PAD (peripheral artery disease) 04/24/2025 8:30 AM CDT - 04/24/2025 11:45 AM CDT Surgery [facility] Operating Room [address] [place] [address] Aniceto Foley MD [address] [facility] [address] [place], [place] [id number] ANGIOGRAM - HYBRID ROOM aorto iliac angiogram Health Maintenance Due Date Last Done Comments Albumin Creatinine Ratio, Urine 1949 Colon Cancer Screening-Colonoscopy 1950 Depression Screening 1950 Hepatitis C Screening 1950 Dilated Eye Exam 1949 Foot Exam 1949 Hepatitis B Screening 1967 Zoster Vaccine (1 of 2) 1999 Well Visit 65+ 2014 Covid-19 Vaccine (3 2023-2 5 season) 2024 11/25/2020, 11/01/2020 Lipid Panel 03/22/2025 03/22/2024, 01/30, 10/31/2022, Additional history exists Influenza Vaccine (#1) 2025 , 05/31/2022, 06/25/2021, Additional history exists Hemoglobin A1C 09/17/2025 03/17/2025, 09/01, 03/24/2023, Additional history exists Fall Risk Assessment 03/17/2026 03/17/2025 eGFR 03/28/2026 03/28/2025, 02/28, 11/12/2024, Additional history exists DTaP/Tdap/Td Vaccine (2 - Td or Tdap) 10/07/2030 10/07/2020 Pneumococcal vaccine 65+ Completed 11/22/2014, 10/30 Abdominal Aortic Aneurysm (A AA) Screen Completed 03/08/2025, 12/15/2023, 06/02/2023, Additional history exists Goals Goal Patient Goal Type Associated Problems Recent Progress Patient-Stated? Author Autogenerat ed Goal Care Plan Autogenerated Problem No Michelle Liriano RN Medical Devices Implanted Type [employer] Device Identifier Shelf Expiration Date Model / [...] 61 to 70 cm pressure-regulating balloon. [employer] iPAYst Vascu-Guard 8x.8cm Peripheral Patch Vascular Bovine Pericardium Vg-[id number] - [id number] Implanted:Qty: 1 on 10/30/2022 by Aniceto Foley MD at [facility] Right: Carotid [employer] i[employer]Yst [id number] 07/09/2023 [id number] / / [id number] [employer] Sandra Ams 800 Kit Accessory Sterile Disposable Latex Free Urinary [id number] - [id number] Implanted:Qty: 1 on 11/09/2024 by Kami Meneses MD at [facility] N/A: Urethra [employer] Sandra [id number] 03/09/2029 [id number] / / [id number] [employer] Sandra Cuff Urethral Ams 800 Inhibizone 3.5cm [id number] - [id number] Implanted:Qty: 1 on 11/09/2024 by Kami Meneses MD at [facility] N/A: Urethra [employer] Sandra [id number] 02/22/2026 [id number] / / [id number] [employer] Sandra Ams 800 Pressure Balloon Sphincter 61-70cu Cm Implant Urological [id number] - [id number] Implanted:Qty: 1 on 11/09/2024 by Kami Meneses MD at [facility] N/A: Abdomen [employer] Sandra [id number] 03/20/2029 [id number] / / [id number] [employer] Sandra Ams 800 Control Pump Sphincter Implant Urological Inhibizone [id number] - [id number] Implanted:Qty: 1 on 11/09/2024 by Kami Meneses MD at [facility] N/A: Scrotum [employer] Sandra [id number] 02/15/2026 [id number] / / [id number] Procedures Procedure Name Priority Date/Time Associated Diagnosis Comments DIFFERENTIAL AUTO Routine 03/28/2025 9:5 0 AM CDT Prostate cancer (HCC) CBC WITH AUTO DIFFERENTIAL Routine 03/28/2025 9:50 AM CDT Prostate cancer (HCC) EGFR Routine 03/28/2025 9:50 AM CDT Prostate cancer (HCC) COMPREHENSIVE METABOLIC PANEL Routine 03/28/2025 9:50 AM CDT Prostate cancer (HCC) PSA DIAGNOSTIC Routine 03/28/2025 9:50 AM CDT Prostate cancer (HCC) LACTATE DEHYDROGENASE Routine 03/28/2025 9:50 AM CDT Prostate cancer (HCC) EGFR Routine 03/17/2025 1:05 PM CDT Preoperative testing DIFFERENTIAL AUTO Routine 03/17/2025 1:0 5 PM CDT Preoperative testing BASIC METABOLIC PANEL Routine 03/17/2025 1:05 PM CDT Preoperative testing CBC WITH AUTO DIFFERENTIAL Routine 03/17/2025 1:05 PM CDT Preoperative testing PROTIME-INR Routine 03/17/2025 1:05 PM CDT Preoperative testing APTT Routine 03/17/2025 1:05 PM CDT Preoperative testing HEMOGLOBIN A1C Routine 03/17/2025 1:05 PM CDT Preoperative testing TYPE AND SCREEN Routine 03/17/2025 1:04 PM CDT Preoperative testing ECG 12-LEAD Routine 03/17/2025 12:53 PM CDT Preoperative testing US ARTERIAL DOPPLER LOWER EXTREMITY BILATERAL Schedule Routine, Read Routine (OP Routine) 03/08/2025 9:29 AM CDT Atherosclerosis of chilkoot arteries of extremities with intermittent claudication, bilateral legs CTA ABDOMINAL AORTA AND BILATERAL ILIOFEMORAL RUNOFF Schedule Routine, Read Routine (OP Routine) 03/08/2025 8:53 AM CDT PVD (peripheral vascular disease) LIPID PANEL Routine 03/22/2024 10:23 AM CDT Coronary artery disease involving chilkoot coronary artery of chilkoot heart without angina pectoris from Last 3 Months or Most Recently Relevant to Health Maintenance Results * Differential, auto (03/28/2025 9:50 AM CDT) Neutrophil abs 4.37 1.50 - 6.50 K/cumm Comment:Testing performed by : [facility], [address] [place] [address] Lymphocyte abs 1.46 0.80 - 3.30 K/cumm [facility] Comment:Testing performed by : [facility], [address] [place], [place] [phone] Monocyte abs 0.50 0.20 - 0.80 K/cumm [facility] Comment:Testing performed by : [facility], [address] [place], [place] [phone] Eosinophil abs 0.15 0.00 - 0.50 K/cumm [facility] Comment:Testing performed by : [facility], [address] [place] [phone] Basophil abs 0.04 0.00 - 0.10 K/cumm [facility] Comment:Testing performed by : [facility], [address] [place] [phone] Neutrophil pct 67.0 % [facility] Comment: Interpretive Data Percent cell count reference ranges are not reported, since discordance with absolute values may lead to misinterpretation of CBC data. Current Interpretive Data was last revised on 2017. Testing performed by: [facility], [address] [place] [phone] Lymphocyte pct 22.4 % [facility] Comment: Interpretive Data Percent cell count reference ranges are not reported, since discordance with absolute values may lead to misinterpretation of CBC data. Current Interpretive Data was last revised on 2017. Testing performed by: [facility], [address] [place] [phone] Monocyte pct 7.7 % DARIN BRYSON Comment: Interpretive Data Percent cell count reference ranges are not reported, since discordance with absolute values may lead to misinterpretation of CBC data. Current Interpretive Data was last revised on 2017. Testing performed by: [facility], [address] [place] [phone] Eosinophil pct 2.3 % DARIN BRYSON Comment: Interpretive Data Percent cell count reference ranges are not reported, since discordance with absolute values may lead to misinterpretation of CBC data. Current Interpretive Data was last revised on 2017. Testing performed by: [facility], [address] [place] [phone] Basophil pct 0.6 % DARIN BRYSON Comment: Interpretive Data Percent cell count reference ranges are not reported, since discordance with absolute values may lead to misinterpretation of CBC data. Current Interpretive Data was last revised on 2017. Testing performed by: [facility], [address] [place] [phone] Blood 03/28/2025 9:50 AM CDT 03/28/2025 9:52 AM CDT us Chicho Clayton MD LAB BLOOD ORDERABLES Final Resul t DARIN BRYSON [facility] Department [place] [address] * (ABNORMAL) CBC with auto differential (03/28/2025 9:50 AM CDT) WBC 6.53 3.80 - 9.90 K/cumm Comment:Testing performed by : [facility], [address] [place] [phone] Hgb 11.1(L) 13.0 - 17.5 g/dL DARIN BRYSON Comment:Testing performed by : [facility], [address] [place] [address] Hct 32.5(L) 38.9 - 50.3 % C[facility]ER [facility] Comment:Testing performed by : [facility], [address] [place], [place] [phone] [address]t 162 150 - 400 K/cumm C[facility]ER [facility] Comment:Testing performed by : [facility], [address] [place] [address] MPV 8.3 6.8 - 10.4 fL CERNER [facility] Comment:Testing performed by : [facility], [address] [place] [address] RBC 3.50(L) 4.30 - 5.80 M/cumm CERNER BJ Comment:Testing performed by : [facility], [address] [place], [place] [id number] MCV 92.8 81.3 - 96.4 fL CERNER BJ Comment:Testing performed by : [facility], [address] [place] [address] MCH 31.6 27.1 - 33.3 pg CERNER BJ Comment:Testing performed by : [facility], [address] [place] [address] MCHC 34.0 32.3 - 35.7 g/dL CERNER BJ Comment:Testing performed by : [facility], [address] [place] [address] RDW CV 16.1(H) 11.1 - 14.9 % CERNER BJ Comment:Testing performed by : [facility], [address] [place] [address] NRBC abs 0.00 0.00 - 0.01 K/cumm CERNER BJ Comment:Testing performed by : [facility], [address] [place] [address] Blood 03/28/2025 9:50 AM CDT 03/28/2025 9:52 AM CDT us Chicho Clayton MD LAB BLOOD ORDERABLES Final Resul t Performing Organization Address City/State/[facility] de Phone Number DARIN [facility] [place] [address] * (ABNORMAL) eGFR (03/28/2025 9:50 AM CDT) eGFR 47(L) >=60 mL/min/1. 73 m2 Comment: Interpretive Data [...] interpretive data was last reviewed 2021. Blood 03/28/2025 9:50 AM CDT 03/28/2025 9:53 AM CDT us Chicho Clayton MD LAB BLOOD ORDERABLES Final Resul t Performing Organization Address [facility] Co de Phone Number [facility] [place] [address] * (ABNORMAL) PSA diagnostic (03/28/2025 9:50 AM CDT) PSA-Total 7.49(H) <=6.20 ng/mL Comment: Interpretive Data AGE SEX [...] Current interpretive data last revised 22. Blood 03/28/2025 9:50 AM CDT 03/28/2025 9:53 AM CDT us Chicho Clayton MD LAB BLOOD ORDERABLES Final Resul t Performing Organization Address City/[facility] Co de Phone Number [facility] [place] [address] * Lactate dehydrogenase (LD) (03/28/2025 9:50 AM CDT) Lactate dehydrogenase (LDH) 118 100 - 250 Units/L Blood 03/28/2025 9:50 AM CDT 03/28/2025 9:53 AM CDT us Chicho Clayton MD LAB BLOOD ORDERABLES Final Resul t Performing Organization Address [facility] de Phone Number [facility] [place] [address] * (ABNORMAL) Comprehensive metabolic panel (03/28/2025 9:50 AM CDT) Pathologist [facility] Sodium 141 135 - 145 mmol/L Potassium, pl 4.8 3.3 - 4.9 mmol/L [facility] Chloride 109 97 - 110 mmol/L [facility] CO2 26 22 - 32 mmol/L [facility] Anion gap 6 2 - 15 mmol/L [facility] BUN 35(H) 6 - 25 mg/dL [facility] Creatinine 1.53(H) 0.80 - 1.30 mg/dL [facility] Glucose 163 70 - 199 mg/dL [facility] Comment: Interpretive Data Fasting glucose [...] interpretive data was last revised 2022. Calcium 10.5(H) 8.5 - 10.3 mg/dL CERNER BJ Bilirubin, total 0.3 0.1 - 1.2 mg/dL CERNER BJ Protein, pl 6.7 6.5 - 8.5 g/dL CERNER [facility] Albumin 3.7 3.5 - 5.0 g/dL CERNER BJ Alk phos 75 40 - 130 Units/L [facility] ALT 19 7 - 55 Units/L CERNER [facility] AST 18 10 - 50 Units/L [facility] Blood 03/28/2025 9:50 AM CDT 03/28/2025 9:53 AM CDT us Chicho Clayton MD LAB BLOOD ORDERABLES Final Resul t [facility] [place] [address] * (ABNORMAL) eGFR (03/17/2025 1:05 PM CDT) eGFR 57(L) >=60 mL/min/1. 73 m2 Comment: Interpretive Data [...] interpretive data was last reviewed 2021. Blood 03/17/2025 1:05 PM CDT 03/17/2025 1:05 PM CDT us Sagrario Fernandez STUDENT RECORDS SPECIALIST LAB BLOOD ORDERABLES Fi nal Result [facility] [address] [place] [address] * Differential, auto (03/17/2025 1:05 PM CDT) Neutrophil abs 5.18 1.50 - 6.50 K/cumm Imm gran abs 0.10 0.00 - 0.10 K/cumm [facility] Lymphocyte abs 1.75 0.80 - 3.30 K/cumm [facility] Monocyte abs 0.65 0.20 - 0.80 K/cumm [facility] Eosinophil abs 0.14 0.00 - 0.50 K/cumm [facility] Basophil abs 0.05 0.00 - 0.10 K/cumm [facility] Neutrophil pct 65.8 % [facility] Comment: Interpretive Data Percent cell count reference ranges are not reported, since discordance with absolute values may lead to misinterpretation of CBC data. Current Interpretive Data was last revised on 2017. Imm gran pct 1.3 % [facility] Comment: Interpretive Data Percent cell count reference ranges are not reported, since discordance with absolute values may lead to misinterpretation of CBC data. Current Interpretive Data was last revised on 2017. Lymphocyte pct 22.2 % [facility] Comment: Interpretive Data Percent cell count reference ranges are not reported, since discordance with absolute values may lead to misinterpretation of CBC data. Current Interpretive Data was last revised on 2017. Monocyte pct 8.3 % [facility] Comment: Interpretive Data Percent cell count reference ranges are not reported, since discordance with absolute values may lead to misinterpretation of CBC data. Current Interpretive Data was last revised on 2017. Eosinophil pct 1.8 % [facility] Comment: Interpretive Data Percent cell count reference ranges are not reported, since discordance with absolute values may lead to misinterpretation of CBC data. Current Interpretive Data was last revised on 2017. Basophil pct 0.6 % [facility] Comment: Interpretive Data Percent cell count reference ranges are not reported, since discordance with absolute values may lead to misinterpretation of CBC data. Current Interpretive Data was last revised on 2017. Blood 03/17/2025 1:05 PM CDT 03/17/2025 1:05 PM CDT Sagrario Fernandez NP LAB BLOOD ORDERABLES Fi nal Result [facility] [address] [place] [address] * (ABNORMAL) CBC with auto differential (03/17/2025 1:05 PM CDT) WBC 7.87 3.80 - 9.90 K/cumm Hgb 11.5(L) 13.0 - 17.5 g/dL [facility] Hct 35.4(L) 38.9 - 50.3 % [facility] Plt 174 150 - 400 K/cumm [facility] MPV 10.8 9.1 - 12.3 fL [facility] RBC 3.72(L) 4.30 - 5.80 M/cumm [facility] MCV 95.2 81.3 - 96.4 fL [facility] MCH 30.9 27.1 - 33.3 pg [facility] MCHC 32.5 32.3 - 35.7 g/dL [facility] RDW CV 14.6 11.1 - 14.9 % [facility] RDW SD 50.9(H) 35.7 - 48.1 fL [facility] NRBC abs 0.00 0.00 - 0.01 K/cumm [facility] Blood 03/17/2025 1:05 PM CDT 03/17/2025 1:05 PM CDT Sagrario Fernandez NP LAB BLOOD ORDERABLES Fi nal Result Performing Organization Address [facility] Co de Phone Number [facility] [address] [facility] [employer] [place], [place] [id number] * aPTT (03/17/2025 1:05 PM CDT) aPTT 34 28 - 38 sec Comment: Interpretive Data Heparin therapeutic range: 66.0 - 100.0 seconds. Range based on correlation with therapeutic heparin activity range of 0.3 - 0.7 Units/mL. Current interpretive data was last revised on 2023. Blood 03/17/2025 1:05 PM CDT 03/17/2025 1:05 PM CDT Sagrario Fernandez NP LAB BLOOD ORDERABLES Fi nal Result Performing Organization Address [facility] Co de Phone Number [facility] [address] [facility] [employer] [place], [place] [id number] * Protime-INR (03/17/2025 1:05 PM CDT) PT 10.7 9.7 - 13.0 sec INR 0.99 0.90 - 1.20 [facility] Comment: Interpretive data Oral anticoagulant therapeutic ranges: Venous thromboembolism prophylaxis or treatment: 2.0-3.0 CARDIOLOGY Standard range: 2.0-3.0 High-intensity range: 2.5-3.5 Refer to indication-specific guidelines for appropriate target ranges for prosthetic heart valve replacement. Current interpretive data was last revised on 2019. Blood 03/17/2025 1:05 PM CDT 03/17/2025 1:05 PM CDT Sagrario Fernandez STUDENT RECORDS SPECIALIST LAB BLOOD ORDERABLES Fi nal Result Performing Organization Address [facility] Co de Phone Number [facility] [address] [facility] [employer] [place], [place] [id number] * (ABNORMAL) Hemoglobin A1c (03/17/2025 1:05 PM CDT) Hgb A1C 6.7(H) 4.0 - 5.6 % Estimated Average Glucose 146 mg/dL [facility] Comment: The ADA recommends reporting an estimated Average Glucose (eAG) with all Hemoglobin A1c results using the equation derived from a study of 507 normal and diabetic adults. Minority populations were underrepresented and children were not included. (Diabetes Care 31:3021-5292, 2008). The eAG is not equivalent to a fasting glucose. Blood 03/17/2025 1:05 PM CDT 03/17/2025 1:05 PM CDT Sagrario Fernandez NP LAB BLOOD ORDERABLES nal Result [facility] [address] Department [place] [address] * (ABNORMAL) Basic metabolic panel (03/17/2025 1:05 PM CDT) [facility] Sodium 139 135 - 145 mmol/L Potassium, pl 4.3 3.3 - 4.9 mmol/L [facility] Chloride 105 97 - 110 mmol/L [facility] CO2 23 22 - 32 mmol/L [facility] Anion gap 11 2 - 15 mmol/L [facility] BUN 35(H) 6 - 25 mg/dL [facility] Creatinine 1.31(H) 0.80 - 1.30 mg/dL [facility] Glucose 76 70 - 199 mg/dL [facility] Comment: Interpretive Data Fasting glucose [...] interpretive data was last revised 2022. Calcium 10.9(H) 8.5 - 10.3 mg/dL [facility] Blood 03/17/2025 1:05 PM CDT 03/17/2025 1:05 PM CDT Sagrario Fernandez NP LAB BLOOD ORDERABLES Fi nal Result Performing Organization Address [facility] Co de Phone Number [facility] [address] [facility] [employer] [place], [place] [id number] * Type and screen (03/17/2025 1:04 PM CDT) ABO Rh A Negative Ashlee, indirect Negative [facility] Blood 03/17/2025 1:04 PM CDT 03/17/2025 1:25 PM CDT Narrative [facility] - 03/17/2025 2:11 PM CDT Is this test being ordered in advance for a procedure?->Yes Expected date of procedure:->04/03/25 Has the patient been transfused in the past 3 months?->No Sagrario Fernandez NP LAB BLOOD BANK TEST ORD ERABLES Final Result Performing Organization Address [facility] de Phone Number [facility] [address] [facility] [employer] [place], [place] [id number] * ECG 12 lead (03/17/2025 12:53 PM CDT) 03/17/2025 12:5 3 PM CDT Narrative [facility] - 03/19/2025 4:45 PM CDT Vent Rate: 60 bpm RR Interval: 997 msec TN Interval: 219 msec QRS Duration: 145 msec QT Interval: 381 msec QTC Interval: 381 msec P-R-T [place]: 46 - -19 - 37 degrees IMPRESSION: SINUS RHYTHM WITH FIRST DEGREE AV BLOCK INTRAVENTRICULAR CONDUCTION DELAY ABNORMAL ECG Electronically Signed By: Casimiro Boggs [facility] Card Sagrario Fernandez NP ECG ORDERABLES Final R esult [facility] * US Arterial Doppler Lower Extremity Bilateral (03/08/2025 9:29 AM CDT) Anatomical Region Laterality Modality Vascular Bilateral Ultrasound 03/08/2025 9:06 AM CDT Narrative 03/08/2025 9:07 PM CDT [facility] - Department of Vascular Surgery, Vascular Laboratory [address] [place] [address] Lower Extremity Arterial Doppler Report Patient Name: RIVERA FREEMAN : 1950 Study Date: 03/08/2025 9:06:00 AM Gender: M Tech: Jay Hutson RVT Location: [facility] Ref Provider: ANICETO FOLEY Quality: Adequate Order Provider: ANICETO FOLEY PROCEDURES: Arterial Report: Bilateral lower extremity arterial Doppler exam at rest. INDICATIONS: I70.213 Atherosclerosis of chilkoot arteries of extremities with intermittent claudication, bilateral legs. MEASUREMENTS: Right Value Units Left Value Units Rt Brachial Pressure 149 mmHg Lt Brachial Pressure 147 mmHg Rt INTER[employer]ER Pressure 62 mmHg Lt INTER[employer]ER Pressure 121 mmHg Rt DPA Pressure 50 mmHg Lt DPA Pressure 97 mmHg Rt 1st Digit Pressure 31 mmHg Lt 1st Digit Pressure 62 mmHg Rt PT TORREY Resting 0.42 Lt PT TORREY Resting 0.81 Rt AT TORREY Resting 0.34 Lt AT TORREY Resting 0.65 Rt Digit/Arm Index 0.21 Lt Digit/Arm Index 0.42 Right Value Units Left Value Units FINDINGS: Performing Strike Planning Applications: Jay Hutson RVT. Right Common Femoral Artery Analysis: The common femoral artery waveform is monophasic. Right Popliteal Artery Analysis: The popliteal waveform is monophasic. Right Posterior Tibial Artery Analysis: The posterior tibial waveform is monophasic. Right Anterior Tibial Artery Analysis: The anterior tibial waveform is monophasic. Right Digits: The right digit waveform is dampened. Left Common Femoral Artery Analysis: The common femoral artery waveform is multiphasic. Left Popliteal Artery Analysis: The popliteal waveform is multiphasic. Left Posterior Tibial Artery Analysis: The posterior tibial waveform is multiphasic. Left Anterior Tibial Artery Analysis: The anterior tibial waveform is monophasic. Left Digits: The left digit waveform is dampened. CONCLUSIONS: 1. The above listed right Ankle/Brachial Index is consistent with severe peripheral arterial disease (for reference, TORREY < 0.50 is consistent with severe disease, rest pain). 2. The above listed left Ankle/Brachial Index at rest is consistent with moderate peripheral arterial disease - claudication, (for reference, claudication range is 0.50 -0.89). 3. Right toe pressure is poor for wound healing (an absolute toe pressure = or < 30mmHg may be indicative of poor wound healing potential and /or rest pain). 4. Bilateral Digit/Arm Indices are abnormal (for reference, abnormal EFRAIN is <0.6). 5. There is evidence of right leg arterial insufficiency at the level of aorta- iliac, common femoral (inflow) arteries. 6. There is evidence of left leg arterial insufficiency at the level of anterior tibial artery. HISTORY: Pain when walking. PREVIOUS STUDIES: Previous study on 09-07-24 Rt. 0.33, Lt. 0.47. DISCLAIMER: The study images and the final [...] that is provided above. Electronically Signed By: Aniceto Foley MD FACS 03/08/2025 8:21:05 PM CDT Procedure Note Aniceto Foley MD - 03/08/2025 [facility] - Department of Vascular Surgery,Vascular Laboratory [address] [place], [place] [id number] Lower Extremity Arterial Doppler Report Patient Name: RIVERA FREEMAN : 1950 Study Date: 03/08/2025 9:06:00 AM Gender: M Tech: Jay Hutson RVT Location: [facility] Provider: ANICETO FOLEY Quality: Adequate Order Provider: ANICETO FOLEY PROCEDURES: Arterial Report: Bilateral lower extremity arterial Doppler exam at rest. INDICATIONS: I70.213 Atherosclerosis of chilkoot arteries of extremities withintermittent claudication, bilateral legs. MEASUREMENTS: Right Value Units Left Value Units Rt Brachial Pressure 149 mmHg Lt Brachial Pressure 147 mmHg Rt [employer]ER Pressure 62 mmHg Lt [employer]ER Pressure 121 mmHg Rt DPA Pressure 50 mmHg Lt DPA Pressure 97 mmHg Rt 1st Digit Pressure 31 mmHg Lt 1st Digit Pressure 62 mmHg Rt PT TORREY Resting 0.42 Lt PT TORREY Resting 0.81 Rt AT TORREY Resting 0.34 Lt AT TORREY Resting 0.65 Rt Digit/Arm Index 0.21 Lt Digit/Arm Index 0.42 Right Value Units Left Value Units FINDINGS: Performing Strike Planning Applications: Jay Hutson RVT. Right Common Femoral Artery Analysis: The common femoral artery waveform is monophasic. Right Popliteal Artery Analysis: The popliteal waveform is monophasic. Right Posterior Tibial Artery Analysis: The posterior tibial waveform is monophasic. Right Anterior Tibial Artery Analysis: The anterior tibial waveform is monophasic. Right Digits: The right digit waveform is dampened. Left Common Femoral Artery Analysis: The common femoral artery waveform is multiphasic. Left Popliteal Artery Analysis: The popliteal waveform is multiphasic. Left Posterior Tibial Artery Analysis: The posterior tibial waveform is multiphasic. Left Anterior Tibial Artery Analysis: The anterior tibial waveform is monophasic. Left Digits: The left digit waveform is dampened. CONCLUSIONS: 1. The above listed right Ankle/Brachial Index is consistent with severeperipheral arterial disease (for reference, TORREY < 0.50 is consistent with severedisease, rest pain). 2. The above listed left Ankle/Brachial Index at rest is consistent withmoderate peripheral arterial disease - claudication, (for reference, claudicationrange is 0.50 -0.89). 3. Right toe pressure is poor for wound healing (an absolute toe pressure= or < 30mmHg may be indicative of poor wound healing potential and /or rest pain). 4. Bilateral Digit/Arm Indices are abnormal (for reference, abnormal DAIis <0.6). 5. There is evidence of right leg arterial insufficiency at the level ofaorta- iliac, common femoral (inflow) arteries. 6. There is evidence of left leg arterial insufficiency at the level ofanterior tibial artery. HISTORY: Pain when walking. PREVIOUS STUDIES: Previous study on 09-07-24 Rt. 0.33, Lt. 0.47. DISCLAIMER: The study images and the final report will be retained in the patientchart by the Vascular Laboratory for the legally required time period. This chartconstitutes the legal record of any testing performed. ATTESTATION: I have reviewed and interpreted the pertinent images and measurements ofthis study. I attest to the conclusions in the final report that is provided above. Electronically Signed By: Aniceto Foley MD, FACS 03/08/2025 8:21:05 PM CDT us Aniceto Foley MD IMG US PROCEDURES Final Resul t * CTA Abdominal Aorta And Bilateral Iliofemoral Runoff (03/08/2025 8:53 AM CDT) Anatomical Region Laterality Modality Body Bilateral Computed Tomogra phy 03/08/2025 1:18 PM CDT Impressions 03/09/2025 12:10 PM CDT 1. Right lower extremity: Stented right common and external iliac arteries with severe multifocal in-stent stenosis. No significant femoral popliteal disease. Three-vessel runoff to the foot. 2. Left lower extremity: Patent stent in the left common iliac artery with moderate stenosis of the distal left common iliac and left external iliac artery. No significant femoral popliteal disease. There is two-vessel runoff to the foot via the posterior tibial and peroneal arteries. 3. 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 Dictated by: Josh Ortiz MD The radiology attending physician has personally reviewed this study, and had reviewed and/or edited this written report and agrees with it. Electronically signed by: Leon Bradshaw M.D. Narrative 03/09/2025 12:10 PM CDT EXAMINATION: CT ANGIOGRAPHY OF THE ABDOMEN, PELVIS, AND LOWER EXTREMITIES WITH CONTRAST HISTORY: Peripheral vascular disease. TECHNIQUE: CT angiography of the abdomen, pelvis, and lower extremities was performed following the uneventful intravenous administration of 114 ml Optiray-350. Vascular 3D images were generated on a dedicated workstation and also reviewed. COMPARISON: 12/15/2023. FINDINGS: VASCULAR FINDINGS: Abdominal Aorta and Branches: Celiac axis: Moderate severe stenosis at the origin. SMA: Mild stenosis at origin KAHTRINE: no significant stenosis Right renal vessels: no significant stenosis Left renal vessels: no significant stenosis Infrarenal aorta: Severe stenosis above level above aortobiiliac stents. Pelvic Vessels: R. Common iliac artery: Stent in place. There is persistent plaque/thrombus causing severe multiple stenosis. R. External iliac artery: Multifocal areas of areas of up to severe narrowing. R. Internal iliac artery: Short segment occlusion proximally with distal reconstitution. L. Common iliac artery: Stent in place. There is up to moderate to severe narrowing due to atherosclerotic plaque distal to the stent (series 8, image 257). L. External iliac artery: Moderate stenosis proximally. L. Internal iliac artery: Occluded proximally with distal reconstitution. Right Lower Extremity: R. Common femoral artery: Mild stenosis proximally. R. Profunda femoris artery: no significant stenosis R. Superficial femoral artery: Mild stenosis proximally. R. Popliteal artery: no significant stenosis R. Anterior tibial artery: no significant stenosis R. Tibioperoneal trunk: no significant stenosis R. Posterior tibial artery: no significant stenosis R. Peroneal artery: no significant stenosis R. Dorsalis pedis artery: no significant stenosis R. Plantar artery: no significant stenosis Left Lower Extremity: L. Common femoral artery: Mild stenosis proximally. L. Profunda femoris artery: Proximal moderate stenosis. L. Superficial femoral artery: no significant stenosis L. Popliteal artery: no significant stenosis L. Anterior tibial artery: Not well opacified and likely occluded. L. Tibioperoneal trunk: no significant stenosis L. Posterior tibial artery: no significant stenosis L. Peroneal artery: no significant stenosis. L. Dorsalis pedis artery: Not well opacified and likely occluded. L. Plantar artery: no significant stenosis NON-VASCULAR FINDINGS: 4 mm nodule at the left lower lung is stable from October 2014 and is therefore is benign. Too small to characterize hypodense left renal lesion. Colonic diverticulosis. Penile artifical sphincter. Prostatectomy. Lower extremity varices. Unchanged mild L4 compression deformity. Procedure Note Leon Bradshaw MD - 03/09/2025 EXAMINATION: CT ANGIOGRAPHY OF THE ABDOMEN, PELVIS, AND LOWER EXTREMITIES WITH CONTRAST HISTORY: Peripheral vascular disease. TECHNIQUE: CT angiography of the abdomen, pelvis, and lower extremities was performed following the uneventful intravenous administration of 114 ml Optiray-350. Vascular 3D images were generated on a dedicated workstation and also reviewed. COMPARISON: 12/15/2023. FINDINGS: VASCULAR FINDINGS: Abdominal Aorta and Branches: Celiac axis: Moderate severe stenosis at the origin. SMA: Mild stenosis at origin KATHRINE: no significant stenosis Right renal vessels: no significant stenosis Left renal vessels: no significant stenosis Infrarenal aorta: Severe stenosis above level above aortobiiliac stents. Pelvic Vessels: R. Common iliac artery: Stent in place. There is persistent plaque/thrombus causing severe multiple stenosis. R. External iliac artery: Multifocal areas of areas of up to severe narrowing. R. Internal iliac artery: Short segment occlusion proximally with distal reconstitution. L. Common iliac artery: Stent in place. There is up to moderate to severe narrowing due to atherosclerotic plaque distal to the stent (series 8, image 257). L. External iliac artery: Moderate stenosis proximally. L. Internal iliac artery: Occluded proximally with distal reconstitution. Right Lower Extremity: R. Common femoral artery: Mild stenosis proximally. R. Profunda femoris artery: no significant stenosis R. Superficial femoral artery: Mild stenosis proximally. R. Popliteal artery: no significant stenosis R. Anterior tibial artery: no significant stenosis R. Tibioperoneal trunk: no significant stenosis R. Posterior tibial artery: no significant stenosis R. Peroneal artery: no significant stenosis R. Dorsalis pedis artery: no significant stenosis R. Plantar artery: no significant stenosis Left Lower Extremity: L. Common femoral artery: Mild stenosis proximally. L. Profunda femoris artery: Proximal moderate stenosis. L. Superficial femoral artery: no significant stenosis L. Popliteal artery: no significant stenosis L. Anterior tibial artery: Not well opacified and likely occluded. L. Tibioperoneal trunk: no significant stenosis L. Posterior tibial artery: no significant stenosis L. Peroneal artery: no significant stenosis. L. Dorsalis pedis artery: Not well opacified and likely occluded. L. Plantar artery: no significant stenosis NON-VASCULAR FINDINGS: 4 mm nodule at the left lower lung is stable from October 2014 and is therefore is benign. Too small to characterize hypodense left renal lesion. Colonic diverticulosis. Penile artifical sphincter. Prostatectomy. Lower extremity varices. Unchanged mild L4 compression deformity. IMPRESSION: 1. Right lower extremity: Stented right common and external iliac arteries with severe multifocal in-stent stenosis. No significant femoral popliteal disease. Three-vessel runoff to the foot. 2. Left lower extremity: Patent stent in the left common iliac artery with moderate stenosis of the distal left common iliac and left external iliac artery. No significant femoral popliteal disease. There is two-vessel runoff to the foot via the posterior tibial and peroneal arteries. 3. 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 Dictated by: Josh Ortiz MD The radiology attending physician has personally reviewed this study, and had reviewed and/or edited this written report and agrees with it. Electronically signed by: Leon Bradshaw M.D. us Aniceto Foley MD IMG CT PROCEDURES Final Resul t * (ABNORMAL) Lipid panel (03/22/2024 10:23 AM [...] revised on 2018. Triglycerides 115 <=149 mg/dL [facility] Comment: Interpretive Data Ages < [...] on 2018. HDL 37(L) >=40 mg/dL [facility] Comment: Interpretive Data Ages < [...] 2018. LDL, calculated 67 <=129 mg/dL [facility] Comment: Interpretive Data Ages < [...] revised on 2018. Non-HDL Cholesterol 90 mg/dL [facility] Comment: Interpretive Data Ages < or = [...] last revised on 2018. Chol/HDL ratio 3 [facility] Blood 03/22/2024 10:2 3 AM CDT 03/22/2024 10:52 AM CDT us Antonette Rater STUDENT RECORDS SPECIALIST LAB BLOOD ORDERABLES Final Resul t [facility] [place] [address] from Last 3 Months or Most Recently Relevant to Health Maintenance Additional Health Concerns Active Problems Noted Date Diagnosed Date Autogenerated Problem 03/28/[address] MARTINEZ [address] [place] [id number] [facility] [address] MARTINEZ [address] [place] [id number] MEDICARE [facility] MEDICARE [facility] MEDICARE AARP Advance Directives For more information, please contact: [phone] * Full Code (Latest Code Status on File) Date Activated Date Inactivated Comments 11/09/2024 2:36 PM 11/12/2024 6:36 PM * Full Code Date Activated Date Inactivated Comments 10/30/2022 5:29 PM 10/31/2022 7:15 PM * Full Code Date Activated Date Inactivated Comments 08/16/2019 9:46 AM 08/16/2019 5:30 PM Care Teams Resource Economist Relationship Specialty Start Date End Date Fuentes Orellana MD PCP - General 11/28/16 Itz Iyer MD [address] [facility] [address] [place] [address] Consulting Physician Urology 05/31/18 Shawnee Mckinney MD [address] [facility] [address] [place] [address] Referring Physician Urology 06/03/18 Chicho Clayton MD [address] [facility] [address] [place] [address] Medical Oncologist/Hematologis t Medical Oncology 06/07/18 Maria Guadalupe Palacios RN Registered Nurse 06/10/18 Lupillo Davenport MD Referring Physician Radiation Oncology 06/16/18 Danis Meza NP [address] [facility] [address] [place] [address] Nurse Practitioner Urology 10/06/22 Antonette Owens NP [address] [facility] [address] [place] [address] Nurse Practitioner Cardiovascular Disease 10/06/22 Aniceto Foley MD [address] [place] [address] Surgeon Vascular Surgery 10/31/22
--- OUTSIDE RECORDS SUMMARY | 2025-04-14 12:06 | XMS_ITS | Encounter Summary ---
Author Organization [facility] Healthcare Address [address] [place] [address] Care Team Providers Care Semaphore Operator Name Role Phone Fuentes Orellana MD Primary Care Provider + [phone] Itz Iyer MD Unavailable [phone] Shawnee Mckinney MD Unavailable [phone] Chicho Clayton MD Unavailable Maria Guadalupe Palacios RN Unavailable Unava ilable Lupillo Davenport MD Unavailable [phone] Danis Meza TANK SYSTEMS MAINTAINER Unavailable [phone] Antonette Owens NP Unavailable Aniceto Foley MD Unavailable [phone] Encounter Details Date Type Department Care Team (Late st Contact Info) Description 07/11/2024 Orders Only [facility] Information Management [address] [place] [address] Scanning, Provider Social History Tobacco Use Types [...] on file 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 Gender Identity Not on file Sexual Orientation Choose not to disclose 2018 8:58 AM CDT Occupation Industry Job 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 Date retired Not on file Not on file Not on file documented as of this encounter Plan of Treatment Upcoming Encounters Date Type Department Care Team (Latest Contact Info) Description 04/24/2025 8:30 AM CDT Hospital Encounter [facility] Operating Room [address] [place] [address] Aniceto Foley MD [address] [id number] [place] [address] PAD (peripheral artery disease) 04/24/2025 8:30 AM CDT - 04/24/2025 11:45 AM CDT Surgery [facility] Operating Room [address] [place] [address] Aniceto Foley MD [address] [id number] [place] [address] ANGIOGRAM - HYBRID ROOM aorto iliac angiogram documented as of this encounter Procedures Procedure Name Priority Date/Time Associated Diagnosis Comments SCAN - RADIOLOGY/IMAGING 07/10/2024 documented in this encounter Results * SCAN - RADIOLOGY/IMAGING (07/10/2024) Anatomical Region Laterality Modality Other us Provider Scanning Edited Result - Final documented in this encounter Visit Diagnoses Not on filedocumented in this encounter Care Teams Semaphore Operator Relationship Specialty Start Date End Date Fuentes Orellana MD PCP - General 11/28/16 Itz Iyer MD [address] [place] [address] Consulting Physician Urology 05/31/18 Shawnee Mckinney MD [address] [facility] [address] [place] [address] Referring Physician Urology 06/03/18 Chicho Clayton MD [address] [place] [address] Medical Oncologist/Hematologis t Medical Oncology 06/07/18 Maria Guadalupe Palacios, BARAK Registered Nurse 06/10/18 Lupillo Davenport MD Referring Physician Radiation Oncology 06/16/18 Danis Meza NP [address] [facility] [address] [place] [address] Nurse Practitioner Urology 10/06/22 Antonette Owens NP [address] [facility] [address] [place] [address] Nurse Practitioner Cardiovascular Disease 10/06/22 Aniceto Foley MD [address] [place] [address] Surgeon Vascular Surgery 10/31/22 documented as of this encounter
[2025-04-14 12:19] LABS: Hematocrit 32.8 % (42.0-52.0); Hemoglobin 10.8 g/dL (14.0-18.0); Immature Granulocyte Percent A 0.8 % (0-0.5); Lymphocytes Absolute Auto 1.40 K/mm3 (0.9-3.2); Mean Corpuscular HGB Conc 32.9 g/dl (32-36); Mean Corpuscular Hemoglobin 30.8 pg (26-34); Mean Corpuscular Volume 93.4 fl (80-100); Nucleated Red Blood Cells Absolute Auto 0.000 K/mm3 (0.0-0.012); Nucleated Red Blood Cells Perc 0.0 % (0.0-0.2); Platelet Count Result 176 k/mm3 (150-375); Red Blood Count 3.51 M/mm3 (4.6-6.20); White Blood Count 7.9 K/mm3 (4.5-10.0)
[2025-04-14 12:42] LABS: Alanine Aminotransferase 24 U/L (6-50); Albumin Level 3.9 g/dL (3.5-5.1); Alkaline Phosphatase 72 U/L (38-126); Anion Gap 8 mmol/L (4-12); Aspartate Amino Transferase 30 U/L (17-59); Bilirubin,Total 0.5 mg/dL (0.2-1.3); Blood Urea Nitrogen 32 mg/dL (9-20); Calcium 10.9 mg/dL (8.4-10.2); Carbon Dioxide 23 mmol/L (22-30); Chloride 107 mmol/L (98-107); Estimated CRCL calculation 41 ml/min; Estimated Glomerular Filt Rate 52; Glucose 137 mg/dL (65-110); Potassium 4.9 mmol/L (3.4-5.0); Sodium 138 mmol/L (137-145); Total Protein 7.3 g/dL (6.3-8.2)
[2025-04-14 12:46] LABS: NT Pro B Type Natriuretic Pept 44 pg/mL (19.9-100)
--- NOTE | 2025-04-14 12:58 | ED_ITS ---
HPI - General Adult General Chief complaint: Extremity Problem,Nontraumatic Stated complaint: swollen left foot Time Seen by Provider: 04/14/25 11:21 History of Present Illness HPI narrative: This is a 74-year-old male with a history of dependent edema with hypertension on amlodipine presenting for foot edema. Patient's of last week he has no knee swelling of his feet. He has had this in the past and treated at with compression stockings although he no longer uses those. He denies any chest pain difficulty breathing. The swelling is bilateral and he has no history of DVT PE. Patient called his primary care physician be seen today and they told him to come to the ER to be evaluated. Related Data Home Medications ?Medication ?Instructions ?Recorded ?Confirmed ?Last Taken ?Type nitroglycerin 0.3 mg sublingual 0.3 mg sublingual PRN PRN Chest 12/05/21 03/23/25 Unknown History tablet Pain ticagrelor 60 mg tablet (Brilinta) 60 mg PO BID 12/05/21 03/23/25 03/08/25 History aspirin 81 mg tablet,delayed 81 mg PO DAILY 12/06/21 03/23/25 03/11/25 History release (Adult Aspirin Regimen) chlorthalidone 25 mg tablet 25 mg PO DAILY 04/16/23 03/23/25 03/14/25 History rosuvastatin 40 mg tablet 40 mg PO DAILY 10/13/23 03/23/25 03/14/25 History telmisartan 80 mg tablet 80 mg PO DAILY 06/08/24 03/23/25 03/14/25 History amlodipine 5 mg tablet 5 mg PO DAILY 09/29/24 03/23/25 03/14/25 History metoprolol tartrate 25 mg tablet 25 mg PO Q12H 12/16/24 03/23/25 03/14/25 History Allergies Allergy/AdvReac Type Severity Reaction Status Date / Time dapagliflozin (From Farxiga) Allergy Severe Hallucinati Verified 03/23/25 10:36 ng metformin AdvReac Severe Diarrhea Verified 03/23/25 10:36 semaglutide (From Ozempic) AdvReac Intermediate Confusion Verified 03/23/25 10:36 [facility] Past Medical History Medical History Hard of hearing reads lips Hypertension Anxiety SOB (shortness of breath) Hyponatremia Cerebrovascular disease Diabetic polyneuropathy Lumbar spine pain BMI 27.0-27.9,adult Chronic pain Spasmodic bladder Trochanteric bursitis, left hip Trochanteric bursitis, right hip Heart disease History of prostate cancer Arthritis History of blood clots Carpal tunnel syndrome on both sides Overweight BMI 26.0-26.9,adult Microscopic colitis Dysphagia BMI 26.0-26.9,adult BMI between 19-24,adult Right shoulder pain Left shoulder pain BMI 25.0-25.9,adult 1st MTP arthritis Depression High cholesterol Shortness of breath Wears glasses Light headedness BMI 25.0-25.9,adult GERD (gastroesophageal reflux disease) HLD (hyperlipidemia) HTN (hypertension) Collagenous colitis Adenomatous colon polyp Tendinitis of both rotator cuffs Groin discomfort CAD (coronary artery disease) Carotid stenosis, asymptomatic h/o intracranial cerebral stenosis, evaluated at [facility] [place] 05/2019, thought not to be symptomatic cont med tx. Glaucoma Personal history of DVT (deep vein thrombosis) Stenosis of infrarenal abdominal aorta due to arteriosclerosis Says his aorta is mildly enlarged Gout (~08/2019) Prostate cancer Anemia Type 2 diabetes mellitus without complications Surgical History Surgical History H/O umbilical hernia repair 01/03/25; Dr Nunez; 6.[address] hernia patch Status post urinary system surgery AMS 800TM device placed 11/09/24 Dr Meneses (urologist [place] - same urology group as at [place]) Hx of endarterectomy H/O carotid endarterectomy (~10/2022) History of rotator cuff surgery History of angioplasty History of cataract surgery History of colonoscopy 2019 S/P arthroscopic surgery of left knee H/O rectal polypectomy H/O cystoscopy History of prostatectomy Had prostate cancer, status post prostatectomy and later radiation therapy. Has an implanted device to help with urinary incontinence. H/O cardiac catheterization H/O heart artery stent Family History Family History Father , of lung cancer age 83 Hypertension Lung cancer Sibling Hypertension Mother Family history of malignant neoplasm of breast in first degree relative Breast cancer of breast cancer age 37 Sibling No problems noted. Other Diabetes mellitus Family history of cardiovascular disease Family history of elevated blood lipids Family history of malignant neoplasm Social History Social History Social History: The patient has 2 sons and is . He does not have a durable power commercial litigation attorney. Wishes to be a full code. 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 Uses cane/assist device when out but not always at home. Smoking packs per day: 1 Smoking cigarettes per day: 20.0 Years smoked: 15 Smoking pack-years: 15.00 Smoking status: Former smoker Tobacco type: cigarettes Second hand tobacco smoke exposure: No Smoking end date: 08/31/82 Alcohol intake: unknown Drinks per week: 14 Alcohol use details: 2-3 per day beer Substance use: never Substance use type: does not use Other substance usage details: no beer in over a week; no marijuana in 9 months Do You Feel Safe in your Home?: Yes Lack of Transportation: No Lack of Food: Never True Current Housing: I Have Housing Concerned About Future Housing: No Difficulty Paying Gas/Electric Bills: No Difficulty Paying for Meds: No Currently Unemployed: No Education: Trade/Vocational Certificate Difficulty w/ Childcare or Family Care: No Living arrangements: alone Occupation/Education: retired Additional occupation/education comments: 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 Gender identity (if verbalized by the patient): Male Spiritual care concerns: No Agree to blood products: Yes Exam 2 Narrative: APPEARANCE: No apparent distress. Head: atraumatic. EYES: EOMI, NOSE: Atraumatic NECK: Trachea midline RESPIRATORY: No increased rate of breathing clear to auscultation CARDIOVASCULAR: RRR, +2 edema of the feet that ends at the ankles. ABDOMINAL: Non-distended MUSCULOSKELETAl: No obvious deformities NEURO: Alert. Moving 4/4 extremities SKIN:: Warm, dry. Normal color PSYCHIATRIC: Normal affect Course Vital Signs Vital signs: Vital Signs Temperature 97.8 F 04/14/25 11:15 Pulse Rate 82 04/14/25 11:15 Respiratory Rate 16 04/14/25 11:15 Blood Pressure 142/53 H 04/14/25 11:15 Pulse Oximetry 99 04/14/25 11:15 Oxygen Delivery Room Air 04/14/25 11:15 Temperature 97.8 F 04/14/25 11:15 Pulse Rate 82 04/14/25 11:15 Respiratory Rate 16 04/14/25 11:15 Blood Pressure 142/53 H 04/14/25 11:15 Pulse Oximetry 99 04/14/25 11:15 Oxygen Delivery Room Air 04/14/25 11:15 Medical Decision Making MDM Narrative Medical decision making narrative: -Course: 74-year-old male presenting with edema of his feet bilaterally. He has had this in the past and responded to compression stockings. Screening lab work was obtained. Kidney function is normal. BNP is undetectable. Chest x- ray does not show evidence of CHF. Patient will be discharged follow-up with primary care physician for further management. -DDX includes but is not limited to: Dependent edema, amlodipine side effect, kidney failure, CHF, DVT PE Vital Signs Vital Signs: Vital Signs Temperature 97.8 F 04/14/25 11:15 Pulse Rate 82 04/14/25 11:15 Respiratory Rate 16 04/14/25 11:15 Blood Pressure 142/53 H 04/14/25 11:15 Pulse Oximetry 99 04/14/25 11:15 Oxygen Delivery Room Air 04/14/25 11:15 Temperature 97.8 F 04/14/25 11:15 Pulse Rate 82 04/14/25 11:15 Respiratory Rate 16 04/14/25 11:15 Blood Pressure 142/53 H 04/14/25 11:15 Pulse Oximetry 99 04/14/25 11:15 Oxygen Delivery Room Air 04/14/25 11:15 Lab Data 04/14/25 12:11 04/14/25 12:11 Labs: Lab Results 04/14/25 Range/Units 12:11 WBC 7.9 (4.5-10.0) K/mm3 RBC 3.51 L (4.6-6.20) M/mm3 Hgb 10.8 L (14.0-18.0) g/dL Hct 32.8 L (42.0-52.0) % MCV 93.4 (80-100) fl MCH 30.8 (26-34) pg MCHC 32.9 (32-36) g/dl RDW 15.1 H (11.5-14.5) % Plt Count 176 (150-375) k/mm3 MPV 10.5 H (7.4-10.4) fl Immature Gran % (Auto) 0.8 H (0-0.5) % Neut % (Auto) 72.5 (45.5-73.1) % Lymph % (Auto) 17.8 L (18.3-44.2) % [place] % (Auto) 6.9 (2.6-8.5) % Eos % (Auto) 1.5 (0-4.4) % Baso % (Auto) 0.5 (0.2-1.2) % Lymph # (Auto) 1.40 (0.9-3.2) K/mm3 [place] # (Auto) 0.5 (0.1-0.6) K/mm3 Eos # (Auto) 0.1 (0-0.3) K/mm3 Baso # (Auto) 0.0 (0.0-0.1) K/mm3 Abs Immat Gran (auto) 0.06 H (0.00-0.031) K/mm3 Absolute Neuts (auto) 5.7 (1.3-6.7) K/mm3 Absolute Nucleated RBC 0.000 (0.0-0.012) K/mm3 Nucleated RBC % 0.0 (0.0-0.2) % Sodium 138 (137-145) mmol/L Potassium 4.9 (3.4-5.0) mmol/L Chloride 107 (98-107) mmol/L Carbon Dioxide 23 (22-30) mmol/L Anion Gap 8 (4-12) mmol/L BUN 32 H (9-20) mg/dL Creatinine 1.35 H (0.7-1.3) mg/dL Estim Creat Clear Calc 41 ml/min Estimated GFR 52 L (59 - ) Glucose 137 H (65-110) mg/dL Calcium 10.9 H (8.4-10.2) mg/dL Total Bilirubin 0.5 (0.2-1.3) mg/dL AST 30 (17-59) U/L ALT 24 (6-50) U/L Alkaline Phosphatase 72 (38-126) U/L NT-Pro-B Natriuret Pep 44 (19.9-100) pg/mL Total Protein 7.3 (6.3-8.2) g/dL Albumin 3.9 (3.5-5.1) g/dL Discharge Plan Discharge Clinical Impression: Dependent edema Patient Disposition: Home Condition: Stable Instructions: Antibiotic Form, Edema (ED) Additional Instructions: You were seen in the emergency department for swelling to her feet. This can be due to the heat or to your amlodipine. Please resume wearing compression stockings and elevate your feet at night. Follow-up with your primary care physician for further management. Patient Language: Emirati Prescriptions: No Action nitroglycerin 0.3 mg tablet, sublingual 0.3 mg sublingual PRN PRN (Reason: Chest Pain) ticagrelor [Brilinta] 60 mg tablet 60 mg PO BID Patient Comments: HOLD 5 days prior to surgery chlorthalidone 25 mg tablet 25 mg PO DAILY telmisartan 80 mg tablet 80 mg PO DAILY rosuvastatin 40 mg tablet 40 mg PO DAILY aspirin [Adult Aspirin Regimen] 81 mg tablet,delayed release (DR/EC) 81 mg PO DAILY linagliptin 5 mg tablet 5 mg PO QAM Qty: 90 2RF (DME) Accu-Chek Aaliyah Plus test strp Strip See Rx Instructions .Route Qty: 400 1RF Rx Instructions: Check blood sugar 4 times daily (DME) lancets [E-Z Ject Lancets] 33 gauge misc See Rx Instructions .Route Qty: 400 12RF Rx Instructions: three times daily glimepiride 1 mg tablet 1 mg PO BID Qty: 180 1RF Rx Instructions: 1 mg before breakfast and 1 mg before supper Gvoke HypoPen 2-Pack 1 mg/0.2 mL auto-injector 1 mg subcut ONCE Qty: 0.4 0RF Rx Instructions: as a single dose; may repeat once after 15 minutes if no response amlodipine 5 mg tablet 5 mg PO DAILY albuterol sulfate [Ventolin HFA] 90 mcg/actuation HFA aerosol inhaler 2 inh inhalation Q4H PRN (Reason: shortness of breath or wheezing) Qty: 8.5 0RF metoprolol tartrate 25 mg Tablet 25 mg PO Q12H alprazolam 0.5 mg tablet 0.5 mg PO TID PRN (Reason: Anxiety) Qty: 20 0RF allopurinol 300 mg tablet 300 mg PO DAILY Qty: 90 1RF pantoprazole 40 mg tablet,delayed release (DR/EC) 40 mg PO DAILY Qty: 90 1RF Kerendia 10 mg tablet See Rx Instructions .ROUTE .COMPLEX Qty: 30 12RF Dose Instruction: TAKE 1 TABLET BY MOUTH DAILY Rx Instructions: TAKE 1 TABLET BY MOUTH DAILY Follow-up/Referrals: Fuentes Orellana MD [Primary Care Provider] -
[2025-04-14 13:20] VITALS: BP 135/49; PULSE 71; RESP 16; TEMP 36.5; O2SAT 100
== END 2025-04-14 13:25 | disposition home or self-care (01) ==
PROVIDERS: Emergency Provider Emergency Medicine; PCP Family Medicine
DX: R60.0 Localized edema (principal); I11.9 Hypertensive heart disease without heart failure; I25.10 Atherosclerotic heart disease of native coronary artery without angina pectoris; E11.42 Type 2 diabetes mellitus with diabetic polyneuropathy; E78.00 Pure hypercholesterolemia, unspecified; E11.39 Type 2 diabetes mellitus with other diabetic ophthalmic complication; H40.9 Unspecified glaucoma; H42 Glaucoma in diseases classified elsewhere; D64.9 Anemia, unspecified; K21.9 Gastro-esophageal reflux disease without esophagitis; M10.9 Gout, unspecified; M19.90 Unspecified osteoarthritis, unspecified site; F41.9 Anxiety disorder, unspecified; F32.A Depression, unspecified; Z95.5 Presence of coronary angioplasty implant and graft; Z85.46 Personal history of malignant neoplasm of prostate; Z86.0101 Personal history of adenomatous and serrated colon polyps; Z87.891 Personal history of nicotine dependence; Z98.49 Cataract extraction status, unspecified eye; Z90.79 Acquired absence of other genital organ(s); Z79.899 Other long term (current) drug therapy; Z79.02 Long term (current) use of antithrombotics/antiplatelets; Z79.82 Long term (current) use of aspirin; Z79.84 Long term (current) use of oral hypoglycemic drugs
CPT/HCPCS: 36415; 71045; 80053; 83880; 85025; 99283

== ENCOUNTER 2025-04-19 11:10 | Outpatient (CLI) | payer MEDICARE, SELFPAY ==
[2025-04-19 11:42] LABS: Hematocrit 32.7 % (42.0-52.0); Hemoglobin 10.5 g/dL (14.0-18.0); Mean Corpuscular HGB Conc 32.1 g/dl (32-36); Mean Corpuscular Hemoglobin 30.7 pg (26-34); Mean Corpuscular Volume 95.6 fl (80-100); Platelet Count Result 156 k/mm3 (150-375); Red Blood Count 3.42 M/mm3 (4.6-6.20); White Blood Count 7.3 K/mm3 (4.5-10.0)
--- OUTSIDE RECORDS SUMMARY | 2025-04-19 11:46 | XMS_ITS | Encounter Summary ---
Author Organization [facility] Healthcare Address [address] [place] [address] Care Team Providers Care Store Product Demonstrator Name Role Phone Fuentes Orellana MD Primary Care Provider + [phone] Itz Iyer MD Unavailable [phone] Lupillo Davenport MD Unavailable [phone] Lupillo Davenport MD Unavailable [phone] Shawnee Mckinney MD Unavailable [phone] Chicho Clayton MD Unavailable Newton Weeks MD Unavailable [phone] Maria Guadalupe Palacios RN Unavailable Unava ilable Lupillo Davenport MD Unavailable [phone] Itz Iyer MD Unavailable [phone] Itz Iyer MD Unavailable [phone] Itz Iyer MD Unavailable [phone] Itz Iyer MD Unavailable [phone] Itz Iyer MD Unavailable [phone] Itz Iyer MD Unavailable [phone] Danis Meza NP Unavailable [phone] Antonette Owens NP Unavailable Aniceto Foley MD Unavailable Encounter Details Date Type Department Care Team (Late st Contact Info) Description 04/12/2018 Orders Only [facility] Health Information Management [address] [place] [address] Scanning, Provider Social History Tobacco Use Types Packs/Day Years Used Date Smoking Tobacco: Never Smokeless Tobacco: Never Alcohol Use Standard Drinks/Week Comments Yes 0 (1 standard drink = 0.6 oz pur e alcohol) Sex and Gender Information Value Date Recorded Sex Assigned at Not on file 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 Gender Identity Not on file Sexual Orientation Choose not to disclose 2018 8:58 AM CDT documented as of this encounter Plan of Treatment Upcoming Encounters Date Type Department Care Team (Latest Contact Info) Description 04/24/2025 8:30 AM CDT Hospital Encounter [facility] Operating Room [address] [place] [phone] Aniceto Foley MD [address] [place] [address] PAD (peripheral artery disease) 04/24/2025 8:30 AM CDT Anesthesia Event [facility] Operating Room [address] [place] [id number] Swetha Barr, MARÍA [address] [facility] [id number] [place] [address] 04/24/2025 8:30 AM CDT - 04/24/2025 11:45 AM CDT Surgery [facility] Operating Room [address] [place] [phone] Aniceto Foley MD [address] [place] [address] ANGIOGRAM - HYBRID ROOM aorto iliac angiogram documented as of this encounter Procedures Procedure Name Priority Date/Time Associated Diagnosis Comments SCAN - RADIOLOGY/IMAGING 04/12/2018 documented in this encounter Results * SCAN - RADIOLOGY/IMAGING (04/12/2018) Anatomical Region Laterality Modality Other us Provider Scanning Edited Result - Final documented in this encounter Visit Diagnoses Not on filedocumented in this encounter Care Teams Store Product Demonstrator Relationship Specialty Start Date End Date Fuentes Orellana MD PCP - General 11/28/16 Itz Iyer MD [address] [place], [place] [id number] Consulting Physician Urology 05/31/18 Lupillo Davenport MD [address] [place] [address] Referring Physician Radiation Oncology 05/31/18 Lupillo Davenport MD [address] [place] [address] Referring Physician Radiation Oncology 05/31/18 Shawnee Mckinney MD [address] [facility] [address] [place] [address] Referring Physician Urology 06/03/18 Chicho Clayton MD [address] [facility] [address] [place] [address] Medical Oncologist/Hematologis t Medical Oncology 06/07/18 Newton Weeks MD [address] [facility] [address] [place] [address] Referring Physician Radiation Oncology 06/07/18 Maria Guadalupe Palacios, RN Registered Nurse 06/10/18 Lupillo Davenport MD [address] [place] [address] [place] [address] Referring Physician Radiation Oncology 06/16/18 Itz Iyer MD [address] [place] [address] Consulting Physician Urology 06/17/18 06/17/18 Itz Iyer MD [address] [place] [address] Consulting Physician Urology 06/18/18 06/18/18 Itz Iyer MD [address] [place] [address] Consulting Physician Urology 06/18/18 06/18/18 Itz Iyer MD [address] [place] [address] Consulting Physician Urology 06/22/18 06/22/18 Itz Iyer MD [address] [place] [address] Consulting Physician Urology 07/01/18 07/01/18 Itz Iyer MD [address] [place] [address] Consulting Physician Urology 07/06/18 07/06/18 Danis Meza, LIGHTOUT EXAMINER [address] [facility] [address] [place] [address] Nurse Practitioner Urology 10/06/22 Antonette Owens NP [address] [facility] [address] [place] [address] Nurse Practitioner Cardiovascular Disease 10/06/22 Aniceto Foley MD [address] [place] [address] Surgeon Vascular Surgery 10/31/22 documented as of this encounter
--- OUTSIDE RECORDS SUMMARY | 2025-04-19 11:46 | XMS_ITS | Clinical Summary ---
Author Organization [facility] Address [address] [place] [address] Care Team Providers Care Holiday Detector Operator Name Role Phone Fuentes Orellana MD Primary Care Provider [phone] Allergies No known active allergies Medications amLODIPine [...] age to complete this topic Insurance MEDICARE [facility] Care Teams Holiday Detector Operator Relationship Specialty Start Date End Date Fuentes Orellana MD [address] [place] [id number] PCP - General FAMILY PRACTICE 11/29/22
--- OUTSIDE RECORDS SUMMARY | 2025-04-19 11:46 | XMS_ITS | Encounter Summary ---
Author Organization [facility] Address [address] [place] [address] Care Team Providers Care Travel Director Name Role Phone Fuentes Orellana MD Primary Care Provider + [phone] Itz Iyer MD Unavailable [phone] Lupillo Davenport MD Unavailable [phone] Lupillo Davenport MD Unavailable [phone] Shawnee Mckinney MD Unavailable [phone] Chicho Clayton MD Unavailable Newton Weeks MD Unavailable [phone] Maria Guadalupe Palacios RN Unavailable Unava ilable Lupillo Davenport MD Unavailable [phone] Itz Iyer MD Unavailable [phone] Itz Iyer MD Unavailable [phone] Itz Iyer MD Unavailable [phone] Itz Iyer MD Unavailable [phone] Itz Iyer MD Unavailable [phone] Itz Iyer MD Unavailable [phone] Danis Meza NP Unavailable [phone] Antonette Owens NP Unavailable Aniceto Foley MD Unavailable [phone] Encounter Details Date Type Department Care Team (Late st Contact Info) Description 03/16/2018 Orders Only [facility] Information Management [address] [place] [id number] Scanning, Provider Social History Tobacco Use Types Packs/Day Years Used Date Smoking Tobacco: Never Smokeless Tobacco: Never Alcohol Use Standard Drinks/Week Comments Yes 0 (1 standard drink = 0.6 oz pur e alcohol) Sex and Gender Information Value Date Recorded Sex Assigned at Not on file Legal Sex Male 12:32 AM 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 Gender Identity Not on file Sexual Orientation Choose not to disclose 2018 8:58 AM CDT documented as of this encounter Plan of Treatment Upcoming Encounters Date Type Department Care Team (Latest Contact Info) Description 04/24/2025 8:30 AM CDT Hospital Encounter [facility] Operating Room [address] [place] [id number] Aniceto Foley MD [address] [place] [address] PAD (peripheral artery disease) 04/24/2025 8:30 AM CDT Anesthesia Event [facility] Operating Room 1 [place] [id number] Swetha Barr, MARÍA [address] [facility] [address] [id number] [place] [address] 04/24/2025 8:30 AM CDT - 04/24/2025 11:45 AM CDT Surgery [facility] Operating Room 1 [place] [address] Aniceto Foley MD [address] [place] [address] ANGIOGRAM - HYBRID ROOM aorto iliac angiogram documented as of this encounter Procedures Procedure Name Priority Date/Time Associated Diagnosis Comments SCAN - LABS 03/16/2018 documented in this encounter Results * SCAN - LABS (03/16/2018) us Provider Scanning Final Result documented in this encounter Visit Diagnoses Not on filedocumented in this encounter Care Teams Travel Director Relationship Specialty Start Date End Date Fuentes Orellana MD PCP - General 11/28/16 Itz Iyer MD [address] [place] [id number] Consulting Physician Urology 05/31/18 Lupillo Davenport MD [address] [place] [address] Referring Physician Radiation Oncology 05/31/18 Lupillo Davenport MD [address] [place] [address] Referring Physician Radiation Oncology 05/31/18 Shawnee Mckinney MD [address] [facility] 8242 [place] [address] Referring Physician Urology 06/03/18 Chicho Clayton MD [address] [facility] [address] [place] [address] Medical Oncologist/Hematologis t Medical Oncology 06/07/18 Newton Weeks MD [address] [facility] [address] [place] [address] Referring Physician Radiation Oncology 06/07/18 Maria Guadalupe Palacios RN Registered Nurse 06/10/18 Lupillo Davenport MD [address] [place] [address] [place] [address] Referring Physician Radiation Oncology 06/16/18 Itz Iyer MD [address] [place] [address] Consulting Physician Urology 06/17/18 06/17/18 Itz Iyer MD [address] [place] [address] Consulting Physician Urology 06/18/18 06/18/18 Itz Iyer MD [address] [place] [address] Consulting Physician Urology 06/18/18 06/18/18 Itz Iyer MD [address] [place] [address] Consulting Physician Urology 06/22/18 06/22/18 Itz Iyer MD [address] [place] [address] Consulting Physician Urology 07/01/18 07/01/18 Itz Iyer MD [address] [address] Consulting Physician Urology 07/06/18 07/06/18 Danis Meza, MARÍA [address] [place] [address] Nurse Practitioner Urology 10/06/22 Antonette Owens NP [address] [facility] [address] [place] [address] Nurse Practitioner Cardiovascular Disease 10/06/22 Aniceto Foley MD [address] [place] [address] Surgeon Vascular Surgery 10/31/22 documented as of this encounter
--- OUTSIDE RECORDS SUMMARY | 2025-04-19 11:46 | XMS_ITS | Encounter Summary ---
Author Organization [facility] Address [address] [place] [address] Phone Care Team Providers Care Record Cutter Name Role Phone Fuentes Orellana MD Primary Care Provider [phone] Brent Dickinson DO Unavailable [phone] Faviola Jiménez IN SERVICE COORDINATOR, CLAIM REVIEW MEDICAL DIRECTOR Unavailable Shawnee Mckinney MD Unavailable Chicho Clayton MD Unavailable Lai Lambert IN SERVICE COORDINATOR, CLAIM REVIEW MEDICAL DIRECTOR Unavailable [phone] Kami Meneses MD Unavailable [phone] Anette Bond MD Unavailable [phone] Kay Gordon IN SERVICE COORDINATOR, CLAIM REVIEW MEDICAL DIRECTOR Unavailable Kami Meneses MD Unavailable [phone] Kami Meneses MD Unavailable [phone] Kami Meneses MD Unavailable [phone] Encounter Details Date Type Department Care Team (Late st Contact Info) Description 08/22/2024 Telephone [facility] [address] [place] [address] Kami Meneses MD #[address], [address] [place] [address] Social History Tobacco Use Types Packs/Day Years [...] Job 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 Date 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 CODER * Telephone Encounter - Elidia Dill - 08/29/2024 8:20 AM CST Please see Dr. Otto message. CODER * Telephone Encounter - Kami Meneses MD [...] sphincter. [facility] needs to be done at [facility] by me. He will need a urine culture 14 days prior to surgery. Hibiclens shower the night before morning of surgery, vancomycin and gentamicin for antibiotics CODER CODER documented in this encounter Plan of Treatment Upcoming Encounters Date Type Department Care Team (Late st Contact Info) Description 04/28/2025 11:15 AM CDT Office Visit [facility] #[address] [place] [address] Kami Meneses MD #[address] [address] documented as of this encounter Visit Diagnoses Not on filedocumented in this encounter Care Teams Record Cutter Relationship Specialty Start Date End Date Fuentes Orlelana MD [address] [facility] [place] [place] [address] PCP - General Family Medicine 07/06/15 Brent Dickinson DO [address] [place] [address] Gastroenterology 06/27/16 Faviola Jiménez, IN SERVICE COORDINATOR, CLAIM REVIEW MEDICAL DIRECTOR [address] [place] [address] Nurse Practitioner Advanced Practice Nurse 07/22/16 Shawnee Mckinney MD [address]60 [facility] 8242 [place] [address] Urologist Urology 06/07/19 Chicho Clayton MD [address]21 [facility] 7 [place] [address] Oncology 06/13/19 Lai Lambert IN SERVICE COORDINATOR, CLAIM REVIEW MEDICAL DIRECTOR [address] [place] [address] Nurse Practitioner Advanced Practice Nurse 02/10/23 Kami Meneses MD #[address] [facility] [address] [place] [address] Consulting Physician Urology 06/16/23 Anette Bond MD #2 [place] [address] Consulting Physician Gastroenterology 12/25/22 Kay Gordon APRN, CLAIM REVIEW MEDICAL DIRECTOR #[address] [place] [address] Nurse Practitioner Advanced Practice Nurse 06/16/24 Kami Meneses MD #[address] [facility], [address] [place] [address] Consulting Physician Urology 08/19/24 Kami Meneses MD #[address] [facility] [address] [place] [address] Consulting Physician Urology 01/06/25 Kami Meneses MD [address], [facility] [address] [place] [address] Consulting Physician Urology 03/08/25 documented as of this encounter
--- OUTSIDE RECORDS SUMMARY | 2025-04-19 11:46 | XMS_ITS | Clinical Summary ---
Author Organization [facility] Address [address], [facility] [address] [place] [address] Phone Care Team Providers Care Rfid Systems Engineer Name Role Phone Fuentes Orellana MD Primary Care Provider Brent Dickinson DO Unavailable [phone] Faviola Jiménez CONSERVATION SCIENCE OFFICER, CARBONIZER TESTER Unavailable Shawnee Mckinney MD Unavailable Chicho Clayton MD Unavailable Lai Lambert CONSERVATION SCIENCE OFFICER, CARBONIZER TESTER Unavailable [phone] Kami Meneses MD Unavailable [phone] Anette Bond MD Unavailable [phone] Kay Gordon APRN, CARBONIZER TESTER Unavailable Kami Meneses MD Unavailable [phone] Kami Meneses MD Unavailable [phone] Kami Meneses MD Unavailable [phone] Allergies No known active allergies Medications [...] GROUP UROLOGY #[address] [place] [address] Kami Meneses MD Pain 03/10/2025 2:15 PM CDT Office Visit [facility] [address] [place] [address] Kami Meneses MD Stress incontinence (female) (male) (Primary Dx); Prostate cancer (HCC) Discharge Disposition: Discharged to home or Selfcare 03/10/2025 Travel 01/20/2025 10:00 AM CDT Office Visit [facility] [address] [place] [address] Kami Meneses MD UTI symptoms (Primary Dx); Stress incontinence (female) (male); Dysuria Discharge Disposition: Discharged to home or Selfcare 01/20/2025 Travel from Last 3 Months Immunizations Immunization [...] Job 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 Date 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 on file Not on file Not on cory e Last Filed Vital Signs Vital Sign Reading Time Taken Comments Blood Pressure 121/66 03/10/2025 2:24 PM CDT Pulse 74 03/10/2025 2:24 PM CDT Temperature 36.4 C (97.6 F) 08/10/2024 9:53 AM SLATER APPRENTICE Respiratory Rate 18 01/20/2025 9:49 AM CDT [...] 04/28/2025 11:15 AM CDT Office Visit [facility] [address] [place] [address] Kami Meneses MD #[address], [address] [address] Health Maintenance Due Date Last Done Comments [...] Additional history exists Influenza Immunization (#1) 2025 10/02/2024, 08/25/2023, 06/27/2022, Additional history exists Colonoscopy 05/24/2025 [...] was administered transurethrally. A well lubricated 16 Azeri flexible cystoscope was introduced transurethrally. Findings: Urethra: [...] CLARITY Clear Urine 01/20/2025 9:55 AM CDT us Kami Gleason MD POINT OF CARE TESTING (MANUAL) Final Result * COLONOSCOPY (05/24/2020) us Brent Dickinson DO PROCEDURE/MINOR SURGICAL ORDERA BLES Final Result from Last 3 Months or Most Recently Relevant to Health Maintenance Insurance DR MARTINEZ [address] [place] [id number] MEDICARE [facility] Care Teams Rfid Systems Engineer Relationship Specialty Start Date End Date Fuentes Orellana MD [address] [address] PCP - General Family Medicine 07/06/15 Brent Dickinson DO [address] [address] Gastroenterology 06/27/16 Faviola Jiménez APRN, CARBONIZER TESTER [address] [facility] [address] Nurse Practitioner Advanced Practice Nurse 07/22/16 Shawnee Mckinney MD 4960 [facility] [address] [place] [address] Urologist Urology 06/07/19 Chicho Clayton MD [address]21 [facility] 7 [place] [address] Oncology 06/13/19 Lai Lambert APRN, CARBONIZER TESTER #2 [place] [address] Nurse Practitioner Advanced Practice Nurse 02/10/23 Kami Meneses MD #[address] [address] Consulting Physician Urology 06/16/23 Anette Bond MD #2 [place] [address] Consulting Physician Gastroenterology 12/25/22 Kay Gordon APRN, CARBONIZER TESTER #2 [place] [address] Nurse Practitioner Advanced Practice Nurse 06/16/24 Kami Meneses MD #[address], [address] [address] Consulting Physician Urology 08/19/24 Kami Meneses MD #[address], [address] [address] Consulting Physician Urology 01/06/25 Kami Meneses MD #[address], [address] [address] Consulting Physician Urology 03/08/25
--- OUTSIDE RECORDS SUMMARY | 2025-04-19 11:46 | XMS_ITS | Encounter Summary ---
Author Organization [facility] Address [address] [place] [address] Phone Care Team Providers Care Outside Sales Consultant Name Role Phone Fuentes Orellana MD Primary Care Provider [phone] Brent Dickinson DO Unavailable [phone] Faviola Jiménez STRAWHAT INSPECTOR AND PACKER, MOBILE HOMES REPAIRER Unavailable Shawnee Mckinney MD Unavailable Chicho Clayton MD Unavailable Lai Lambert STRAWHAT INSPECTOR AND PACKER, MOBILE HOMES REPAIRER Unavailable [phone] Kami Meneses MD Unavailable [phone] Anette Bond MD Unavailable [phone] Kay Gordon STRAWHAT INSPECTOR AND PACKER, MOBILE HOMES REPAIRER Unavailable Kami Meneses MD Unavailable [phone] Kami Meneses MD Unavailable [phone] Kami Meneses MD Unavailable [phone] Encounter Details Date Type Department Care Team (Late st Contact Info) Description 12/16/2024 Telephone [facility] [address] [place] [address] Kami Meneses MD [facility] [facility] [address] [place] [address] Social History Tobacco Use Types Packs/Day Years [...] states he sees Dr. Chicho Clayton at [place] for prostate. * Telephone Encounter - Kami Meneses MD - 12/16/2024 11:45 AM CDT Can you ask the patient who follows him for his prostate cancer? documented in this encounter Plan of Treatment Upcoming Encounters Date Type Department Care Team (Late st Contact Info) Description 04/28/2025 11:15 AM CDT Office Visit [facility] [address] [place] [address] Kami Meneses MD [facility] [facility] [address] [place] [address] documented as of this encounter Visit Diagnoses Not on filedocumented in this encounter Care Teams Outside Sales Consultant Relationship Specialty Start Date End Date Fuentes Orellana MD [address] [place] [address] PCP - General Family Medicine 07/06/15 Brent Dickinson DO [address] [facility] [place] [address] Gastroenterology 06/27/16 Faviola Jiménez APRN, MOBILE HOMES REPAIRER [address] [place] [address] Nurse Practitioner Advanced Practice Nurse 07/22/16 Shawnee Mckinney MD 4960 [facility] [address] [place] [address] Urologist Urology 06/07/19 Chicho Clayton MD 4921 [facility] 7 [place] [address] Oncology 06/13/19 Lai Lambert APRN, MOBILE HOMES REPAIRER #[address] [place] [address] Nurse Practitioner Advanced Practice Nurse 02/10/23 Kami Meneses MD #[address] [address] Consulting Physician Urology 06/16/23 Anette Bond MD #2 [place] [address] Consulting Physician Gastroenterology 12/25/22 Kay Gordon APRN, MOBILE HOMES REPAIRER #[address] [place] [address] Nurse Practitioner Advanced Practice Nurse 06/16/24 Kami Meneses MD #[address] [address] Consulting Physician Urology 08/19/24 Kami Meneses MD #[address] [address] Consulting Physician Urology 01/06/25 Kami Meneses MD #[address] [address] Consulting Physician Urology 03/08/25 documented as of this encounter
--- OUTSIDE RECORDS SUMMARY | 2025-04-19 11:46 | XMS_ITS | Clinical Summary ---
Author Organization [facility] Address [address] [place] [address] Phone Care Team Providers Care Program Host Name Role Phone Fuentes Orellana MD Primary Care Provider [phone] Allergies No known active allergies Medications pantoprazole [...] 2025 06/15/2018 Medical Devices Implanted Type Area Lithographic Proofer Device Identifier Shelf Expiration Date Model / Serial / Lot Ams 800 Urinary Control System(Penile Implant) Description:MRI conditional for 3T or less -danisha 01/04/19 Insurance MEDICARE PART A AND B [facility] [id number] Care Teams Program Host Relationship Specialty Start Date End Date Fuentes Orellana MD [address] [place] [address] PCP - General Family Practice 01/04/19
--- OUTSIDE RECORDS SUMMARY | 2025-04-19 11:46 | XMS_ITS | Encounter Summary ---
Author Organization [facility] Address [address] [place] [address] Phone Care Team Providers Care Heating And Ventilating Worker Name Role Phone Fuentes Orellana MD Primary Care Provider Brent Dickinson DO Unavailable [phone] Faviola Jiménez COPYRIGHT CLERK, HEAVY EQUIPMENT OPERATOR Unavailable Shawnee Mckinney MD Unavailable Chicho Clayton MD Unavailable Lai Lambert COPYRIGHT CLERK, HEAVY EQUIPMENT OPERATOR Unavailable [phone] Kami Meneses MD Unavailable [phone] Anette Bond MD Unavailable [phone] Kay Gordon COPYRIGHT CLERK, HEAVY EQUIPMENT OPERATOR Unavailable Kami Meneses MD Unavailable [phone] Kami Meneses MD Unavailable [phone] Kami Meneses MD Unavailable [phone] Reason for Visit * Reason Comments Medication Refill Encounter Details Date Type Department Care Team (Late st Contact Info) Description 03/25/2021 Refill [facility] - Gastroenterology [facility] [address] [place] [address] Ingrid Mccloud Ashley, PAC [address] [place] [address] Medication Refill Social History Tobacco Use Types [...] Job 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 Date 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 difficile Rule-Out 04/10/2021 04/10/20212020 12:16 AM CDT documented as of this encounter Care Teams Heating And Ventilating Worker Relationship Specialty Start Date End Date Fuentes Orellana MD [address] [facility] [place] [address] PCP - General Family Medicine 07/06/15 Brent Dickinson DO [address] [facility] [place] [address] Gastroenterology 06/27/16 Faviola Jiménez APRN, HEAVY EQUIPMENT OPERATOR [address] [place] [address] Nurse Practitioner Advanced Practice Nurse 07/22/16 Shawnee Mckinney MD [address] [facility] [address] [place] [address] Urologist Urology 06/07/19 Chicho Clayton MD 4921 [facility] 7 [place] [address] Oncology 06/13/19 Lai Lambert APRN, HEAVY EQUIPMENT OPERATOR #2 [place] [address] Nurse Practitioner Advanced Practice Nurse 02/10/23 Kami Meneses MD #2 [facility] [address] [address] Consulting Physician Urology 06/16/23 Anette Bond MD #[address] [place] [address] Consulting Physician Gastroenterology 12/25/22 Kay Gordon APRN, HEAVY EQUIPMENT OPERATOR #2 [place] [address] Nurse Practitioner Advanced Practice Nurse 06/16/24 Kami Meneses MD #[address] [address] Consulting Physician Urology 08/19/24 Kami Meneses MD #[address] [address] Consulting Physician Urology 01/06/25 Kami Meneses MD #[address] [address] Consulting Physician Urology 03/08/25 documented as of this encounter
--- OUTSIDE RECORDS SUMMARY | 2025-04-19 11:46 | XMS_ITS | Encounter Summary ---
Author Organization [facility] Healthcare Address [address] [place] [address] Care Team Providers Care Graphic Design Teacher Name Role Phone Fuentes Orellana MD Primary Care Provider + [phone] Itz Iyer MD Unavailable [phone] Lupillo Davenport MD Unavailable [phone] Lupillo Davenport MD Unavailable [phone] Shawnee Mckinney MD Unavailable [phone] Chicho Clayton MD Unavailable Newton Weeks MD Unavailable [phone] Maria Guadalupe Palacios RN Unavailable Unava ilable Lupillo Davenport MD Unavailable [phone] Itz Iyer MD Unavailable [phone] Itz Ieyr MD Unavailable +[phone] Itz Iyer MD Unavailable +[phone] Itz Iyer MD Unavailable +[phone] Itz Iyer MD Unavailable [phone] Itz Iyer MD Unavailable [phone] Danis Meza NP Unavailable [phone] Antonette Owens NP Unavailable Aniceto Foley MD Unavailable [phone] Encounter Details Date Type Department Care Team (Late st Contact Info) Description 03/30/2018 Orders Only [facility] Health Information Management [address] [place] [address] Scanning, Provider Social History Tobacco Use Types Packs/Day Years Used Date Smoking Tobacco: Never Smokeless Tobacco: Never Alcohol Use Standard Drinks/Week Comments Yes 0 (1 standard drink = 0.6 oz pur e alcohol) Sex and Gender Information Value Date Recorded Sex Assigned at Not on file Legal Sex Male 12:32 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 Gender Identity Not on file Sexual Orientation Choose not to disclose 2018 8:58 AM CDT documented as of this encounter Plan of Treatment Upcoming Encounters Date Type Department Care Team (Latest Contact Info) Description 04/24/2025 8:30 AM CDT Hospital Encounter [facility] Operating Room 1 [place] [address] Aniceto Foley MD [address] [place] [address] PAD (peripheral artery disease) 04/24/2025 8:30 AM CDT Anesthesia Event [facility] Operating Room 1 [place] [id number] Swetha Barr, MARÍA [address] [facility] [phone] [place] [address] 04/24/2025 8:30 AM CDT - 04/24/2025 11:45 AM CDT Surgery [facility] Operating Room 1 [place] [address] Aniceto Foley MD [address] [place] [address] ANGIOGRAM - HYBRID ROOM aorto iliac angiogram documented as of this encounter Procedures Procedure Name Priority Date/Time Associated Diagnosis Comments SCAN - LABS 03/30/2018 documented in this encounter Results * SCAN - LABS (03/30/2018) us Provider Scanning Final Result documented in this encounter Visit Diagnoses Not on filedocumented in this encounter Care Teams Graphic Design Teacher Relationship Specialty Start Date End Date Fuentes Orellana MD PCP - General 11/28/16 Itz Iyer MD [address] [place], [place] [address] Consulting Physician Urology 05/31/18 Lupillo Davenport MD [address] [place] [address] Referring Physician Radiation Oncology 05/31/18 Lupillo Davenport MD [address] [place] [address] Referring Physician Radiation Oncology 05/31/18 Shawnee Mckinney MD [address] [facility] [address] [place] [address] Referring Physician Urology 06/03/18 Chicho Clayton MD [address] [facility] [address] [place] [address] Medical Oncologist/Hematologis t Medical Oncology 06/07/18 Newton Weeks MD [address] [facility] [address] [place] [address] Referring Physician Radiation Oncology 06/07/18 Maria Guadalupe Palacios RN Registered Nurse 06/10/18 Lupillo Davenport MD [address] [place] [address] [place] [address] Referring Physician Radiation Oncology 06/16/18 Itz Iyer MD [address] [place] [address] Consulting Physician Urology 06/17/18 06/17/18 Itz Iyer MD [address] [place] [address] Consulting Physician Urology 06/18/18 06/18/18 Itz Iyer MD [address] [place] [address] Consulting Physician Urology 06/18/18 06/18/18 Itz Iyer MD [address] [place] [address] Consulting Physician Urology 06/22/18 06/22/18 Itz Iyer MD [address] [place] [address] Consulting Physician Urology 07/01/18 07/01/18 Itz Iyer MD [address] [address] Consulting Physician Urology 07/06/18 07/06/18 Danis Meza, MARÍA [address] [place] [address] Nurse Practitioner Urology 10/06/22 Antonette Owens NP [address] [facility] [address] [place] [address] Nurse Practitioner Cardiovascular Disease 10/06/22 Aniceto Foley MD [address] [place] [address] Surgeon Vascular Surgery 10/31/22 documented as of this encounter
--- OUTSIDE RECORDS SUMMARY | 2025-04-19 11:46 | XMS_ITS | Encounter Summary ---
Author Organization [facility] Healthcare Address [address] [place] [address] Care Team Providers Care Computer Applications Developer Name Role Phone Fuentes Orellana MD Primary Care Provider + [phone] Itz Iyer MD Unavailable [phone] Shawnee Mckinney MD Unavailable [phone] Chicho Clayton MD Unavailable Maria Guadalupe Palacios RN Unavailable Unava ilable Lupillo Davenport MD Unavailable [phone] Danis Meza TAPE CONTROLLED MACHINE STITCHER Unavailable [phone] Antonette Owens NP Unavailable Aniceto Foley MD Unavailable [phone] Encounter Details Date Type Department Care Team (Late st Contact Info) Description 07/24/2024 Orders Only [facility] Health Information Management [address] [place] [address] Scanning, Provider Social History Tobacco Use Types [...] on file Legal Sex Male 12:32 AM NUMERICAL CONTROL 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 PROGRAMMER Gender Identity Not on file Sexual Orientation [...] [facility] Operating Room [address] [place] [address] Aniceto Foley MD [address] [facility] [address] [place] [address] PAD (peripheral artery disease) 04/24/2025 8:30 AM CDT Anesthesia Event [facility] Operating Room [address] [place] [address] Swetha Barr, TAPE CONTROLLED MACHINE STITCHER [address] [facility] [address] [phone] [place] [address] 04/24/2025 8:30 AM CDT - 04/24/2025 11:45 AM CDT Surgery [facility] Operating Room [address] [place] [address] Aniceto Foley MD [address] [facility] [address] [place] [address] ANGIOGRAM - HYBRID ROOM aorto iliac angiogram documented as of this encounter Procedures Procedure Name Priority Date/Time Associated Diagnosis Comments SCAN - LABS 07/24/2024 documented in this encounter Results * SCAN - LABS (07/24/2024) us Provider Scanning Final Result documented in this encounter Visit Diagnoses Not on filedocumented in this encounter Care Teams Computer Applications Developer Relationship Specialty Start Date End Date Fuentes Orellana MD PCP - General 11/28/16 Itz Iyer MD [address] [place] [address] Consulting Physician Urology 05/31/18 Shawnee Mckinney MD [address] [facility] [address] [place] [address] Referring Physician Urology 06/03/18 Chicho Clayton MD [address] [facility] [address] [place] [address] Medical Oncologist/Hematologis t Medical Oncology 06/07/18 Maria Guadalupe Palacios, RN Registered Nurse 06/10/18 Lupillo Davenport MD Referring Physician Radiation Oncology 06/16/18 Danis Meza NP [address] [facility] [address] [place] [address] Nurse Practitioner Urology 10/06/22 Antonette Owens NP [address] [facility] [address] [place] [address] Nurse Practitioner Cardiovascular Disease 10/06/22 Aniceto Foley MD [address] [facility] [address] [place] [address] Surgeon Vascular Surgery 10/31/22 documented as of this encounter
--- OUTSIDE RECORDS SUMMARY | 2025-04-19 11:46 | XMS_ITS | Encounter Summary ---
Author Organization [facility] Address [address] [place] [address] Phone Care Team Providers Care Stencil Cutter Machine Name Role Phone Fuentes Orellana MD Primary Care Provider + [phone] Itz Iyer MD Unavailable [phone] Shawnee Mckinney MD Unavailable [phone] Chicho Clayton MD Unavailable Maria Guadalupe Palacios RN Unavailable Unava ilable Lupillo Davenport MD Unavailable [phone] Danis Meza PHARMACY OPERATIONS MANAGER Unavailable [phone] Antonette Owens NP Unavailable Aniceto Foley MD Unavailable [phone] Encounter Details Date Type Department Care [...] on file Legal Sex Male 12:32 AM FILM EXAMINER Gender Identity Not on file Sexual Orientation Choose not to disclose 2018 8:58 AM CDT documented as of this encounter Plan of Treatment Upcoming Encounters Date Type Department Care Team (Latest Contact Info) Description 04/24/2025 8:30 AM CDT Hospital Encounter [facility] Operating Room 1 [place] [address] Aniceto Foley MD [address] [facility] [address]01 [place] [address] PAD (peripheral artery disease) 04/24/2025 8:30 AM CDT Anesthesia Event [facility] Operating Room [address] [place] [address] Swetha Barr, PHARMACY OPERATIONS MANAGER [address] [facility] [phone] [place], [place] [address] 04/24/2025 8:30 AM CDT - 04/24/2025 11:45 AM CDT Surgery [facility] Operating Room [address] [place] [address] Aniceto Foley MD [address] [facility] 8[address]-01 [place] [address] ANGIOGRAM - HYBRID ROOM aorto iliac angiogram documented as of this encounter Procedures Procedure Name Priority Date/Time Associated Diagnosis Comments SCAN - RADIOLOGY/IMAGING 01/18/2019 documented in this encounter Results * SCAN - RADIOLOGY/IMAGING (01/18/2019) Anatomical Region Laterality Modality Other us Provider Scanning Final Result documented in this encounter Visit Diagnoses Not on filedocumented in this encounter Care Teams Stencil Cutter Machine Relationship Specialty Start Date End Date Fuentes Orellana MD PCP - General 11/28/16 Itz Iyer MD [address] [id number] Consulting Physician Urology 05/31/18 Shawnee Mckinney MD [address] [place] [address] Referring Physician Urology 06/03/18 Chicho Clayton MD [address] [facility] [address] [place] [address] Medical Oncologist/Hematologis t Medical Oncology 06/07/18 Maria Guadalupe Palacios, RN Registered Nurse 06/10/18 Lupillo Davenport MD Referring Physician Radiation Oncology 06/16/18 Danis Meza NP [address] [facility] [address] [place] [address] Nurse Practitioner Urology 10/06/22 Antonette Owens NP [address] [facility] [address] [place] [address] Nurse Practitioner Cardiovascular Disease 10/06/22 Aniceto Foley MD [address] [place] [address] Surgeon Vascular Surgery 10/31/22 documented as of this encounter
--- OUTSIDE RECORDS SUMMARY | 2025-04-19 11:46 | XMS_ITS | Encounter Summary ---
Author Organization [facility] Address [address] [place] [address] Phone Care Team Providers Care Medical Receptionist Biller Name Role Phone Fuentes Orellana MD Primary Care Provider Brent Dickinson DO Unavailable [phone] Faviola Jiménez DIRECTOR OF MEDICAL REVIEW, ROSIN BARREL FILLER Unavailable Shawnee Mckinney MD Unavailable Chicho Clayton MD Unavailable Lai Lambert DIRECTOR OF MEDICAL REVIEW, ROSIN BARREL FILLER Unavailable [phone] Kami Meneses MD Unavailable [phone] Anette Bond MD Unavailable [phone] Kay Gordon DIRECTOR OF MEDICAL REVIEW, ROSIN BARREL FILLER Unavailable Kami Meneses MD Unavailable [phone] Kami Meneses MD Unavailable [phone] Kami Meneses MD Unavailable [phone] Reason for Visit * Reason Comments Medication Refill Encounter Details Date Type Department Care Team (Late st Contact Info) Description 11/12/2022 Refill [facility] - Gastroenterology [facility] [address] [place] [address] Ingrid Mccloud Ashley, PAC [address] [place] [address] Medication Refill Social History Tobacco Use Types [...] Description 04/28/2025 11:15 AM CDT Office Visit [facility] #[address] [place] [address] Kami Meneses MD #[address] [address] documented as of this encounter Visit Diagnoses Not on filedocumented in this encounter Care Teams Medical Receptionist Biller Relationship Specialty Start Date End Date Fuentes Orellana MD [address] [place] [address] PCP - General Family Medicine 07/06/15 Brent Dickinson DO [address] [place] [address] Gastroenterology 06/27/16 Faviola Jiménez APRN, ROSIN BARREL FILLER [address] [place] [address] Nurse Practitioner Advanced Practice Nurse 07/22/16 Shawnee Mckinney MD [address] [facility] [address] [place] [address] Urologist Urology 06/07/19 Chicho Clayton MD 49[address] [facility] [address] [place] [address] Oncology 06/13/19 Lai Lambert APRN, ROSIN BARREL FILLER [address] [place] [address] Nurse Practitioner Advanced Practice Nurse 02/10/23 Kami Meneses MD [address] [facility] [address] [address] Consulting Physician Urology 06/16/23 Anette Bond MD #2 [address] [facility] [place] [address] Consulting Physician Gastroenterology 12/25/22 Kay Gordon APRN, ROSIN BARREL FILLER [address] [facility] [place] [address] Nurse Practitioner Advanced Practice Nurse 06/16/24 Kami Meneses MD #[address] [facility], [facility] [address] [place] [address] Consulting Physician Urology 08/19/24 Kami Meneses MD [address] [place] [address] Consulting Physician Urology 01/06/25 Kami Meneses MD [address] [place] [address] Consulting Physician Urology 03/08/25 documented as of this encounter
--- OUTSIDE RECORDS SUMMARY | 2025-04-19 11:46 | XMS_ITS ---
Author Organization [facility] [address] Address [address] [place] [address] Care Team Providers Care Vehicle Operator Name Role Phone Fuentes Orellana MD Primary Care Provider [phone] Itz Iyer MD Unavailable [phone] Shawnee Mckinney MD Unavailable [phone] Chicho Clayton MD Unavailable Maria Guadalupe Palacios RN Unavailable Unava ilable Lupillo Davenport MD Unavailable [phone] CONTRACT[address] Unavailable Antonette Owens NP Unavailable Aniceto Foley [...] (10/21/2022): Added automatically from request for surgery [id number] Assessment & Plan (10/30/2022 2:56 PM ESTIMATOR PROJECT MANAGER): - OR 3/2 for planned R CEA - OU status, Q2h NV/VS monitoring - Bedrest today, OOB/PT POD #1 - SBP goal 100-160, nicardipine for elevated BP - Continue aspirin and statin - Plan to stager home medications and resume overnight Atherosclerosis of holy cross ar teries of extremities with intermittent claudication, bilateral legs 06/03/2022 Melanoma 01/10/2021 Anxiety 01/10/2021 DM (diabetes mellitus) 01/10/2021 Assessment & Plan (10/30/2022 9:59 AM ESTIMATOR PROJECT MANAGER): - A1c 7.6% 10/2022 - SSI while inpatient - CC diet when eating Elevated left ventricular end-diastolic pressure (LVEDP) 11/15/2019 Encounter for surgical after care following surgery of circulatory system 05/20/2019 Prostate cancer 09/10/2018 Assessment & Plan (10/27/2018 9:53 AM ESTIMATOR PROJECT MANAGER): Follows with urology, has his PSA monitored it is increasing, but still WNL 1.4 Assessment & Plan (09/22/2018 11:35 AM ESTIMATOR PROJECT MANAGER): Has close follow up with his oncologist. His PSA was slightly elevated on last check. Hyperlipidemia 09/21/2017 Assessment & Plan (06/30/2018 9:38 AM CDT): His last lipid panel was within acceptable range; he will continue on a high intensity statin. Assessment & Plan (09/21/2017 11:34 AM ESTIMATOR PROJECT MANAGER): Continue Lipitor 40 mg daily. Essential hypertension 07/20/2017 Assessment & Plan (10/30/2022 2:57 PM ESTIMATOR PROJECT MANAGER): - Tight BP goals post-procedure - Continue home medications as indicated by BP goals as above, staggering overnight for gentle BP control Assessment & Plan (10/27/2018 9:54 AM ESTIMATOR PROJECT MANAGER): Hypertension is unchanged. Dietary sodium restriction. Blood pressure will be reassessed in 4 weeks. Assessment & Plan (09/22/2018 11:38 AM ESTIMATOR PROJECT MANAGER): Hypertension remains elevated. He is increasing [...] today Assessment & Plan (09/21/2017 11:33 AM ESTIMATOR PROJECT MANAGER): Blood pressure is well controlled today. Last visit we added HCTZ 12.5 mg daily. Continue current medications Assessment & Plan (08/10/2017 11:26 AM ESTIMATOR PROJECT MANAGER): Blood pressure is not controlled. Add hydrochlorothiazide 12.5 mg p.o. daily. He is compliant with medications but always add salt to food which I advised him not to do that. Assessment & Plan (07/20/2017 9:19 AM ESTIMATOR PROJECT MANAGER): Blood pressure remains uncontrolled. We will order renal Doppler ultrasound to rule out renal artery stenosis given the fact that he has peripheral vascular disease and coronary artery disease. I will increase amlodipine from 5-10 mg p.o. daily. If that does not control the blood pressure we will add hydrochlorothiazide 12.5 mg p.o. Daily. Coronary artery disease invo lving holy cross coronary artery of holy cross heart without angina pectoris 07/20/2017 Assessment & Plan (10/30/2022 9:58 AM ESTIMATOR PROJECT MANAGER): - Continue home medications as able - Maintained on Brilinta as an outpatient; held 1 week prior to OR - Will discuss with surgery team when to safely resume post-procedure Assessment & Plan (10/27/2018 9:59 AM ESTIMATOR PROJECT MANAGER): Coronary artery disease is improving with lifestyle modifications. Continue current treatment regimen. Cardiac status will be reassessed in 3 months. No chest pain. Minimal SOB. Continue asa, statin, brilinta Assessment & Plan (09/22/2018 11:36 AM ESTIMATOR PROJECT MANAGER): Coronary artery disease is unchanged. Regular [...] BB. Assessment & Plan (09/21/2017 11:33 AM ESTIMATOR PROJECT MANAGER): Continue aspirin, Brilinta, Toprol XL and atorvastatin. Assessment & Plan (08/10/2017 11:27 AM ESTIMATOR PROJECT MANAGER): Continue Brilinta and aspirin. Asymptomatic. Assessment & Plan (07/20/2017 9:19 AM ESTIMATOR PROJECT MANAGER): Continue aspirin, Brilinta, Lipitor , metoprolol PVD (peripheral vascular disease) 07/20/2017 Assessment & Plan (10/27/2018 9:21 AM ESTIMATOR PROJECT MANAGER): S/P bilateral LAVA angioplasty; right EIA angioplasty/stent 11/21/14. S/P aortoiliac angioplasty/stent 05/28/09. Continues on asa, statin and brilinta Assessment & Plan (09/21/2017 11:34 AM ESTIMATOR PROJECT MANAGER): He follows up with vascular surgery at [facility] Assessment & Plan (08/10/2017 11:27 AM ESTIMATOR PROJECT MANAGER): Renal ultrasound suggest more than 60% stenosis in the right renal artery and infrarenal stenosis 50-70%. He follows up with Dr. Foley from vascular surgery at [facility] Assessment & Plan (07/20/2017 9:20 AM ESTIMATOR PROJECT MANAGER): Patient will follow up with Dr. [...] 02/09/2019 Assessment & Plan (10/27/2018 10:17 AM ESTIMATOR PROJECT MANAGER): Persistent dizziness. Has stopped caffeine intake. [...] device, implant or graft 02/09/2019 Atherosclerosis of holy cross artery of extremity 04/15/20 16 02/09/2019 Assessment & Plan (09/22/2018 11:26 AM ESTIMATOR PROJECT MANAGER): 80% circumflex s/p RICHARD. Moderate 30 % LAD with bridging Impotence of organic origin 09/18/2015 02/09/2019 Urinary tract infection 01/18/201501/29 Incontinence 01/18/2015 02/09/2019 Stricture, urethra 07/31/2011 9 Overview (12/10/2017): Description: Dilation 06/09/11 Nocturia 11/28/2010 02/09/2019 Hypertension 05/16/2009 02/09/2019 Assessment & Plan (10/27/2018 10:11 AM ESTIMATOR PROJECT MANAGER): Hypertension is {improving/stable/worsenin}. {plan; hypertension for POC:[id number]} Blood pressure will be reassessed {plan; follow-up 2 weeks/4weeks/3months:[id number]}. Increase amolodipine to 10 mg Continue all [...]
--- OUTSIDE RECORDS SUMMARY | 2025-04-19 11:46 | XMS_ITS | Encounter Summary ---
Author Organization [facility] Address [address] [place] [address] Phone Care Team Providers Care Home Health Care Case Manager Name Role Phone Fuentes Orellana MD Primary Care Provider [phone] Brent Dickinson DO Unavailable [phone] Faviola Jiménez TOE SEWER, PRODUCTION SANITIZER Unavailable Shawnee Mckinney MD Unavailable Chicho Clayton MD Unavailable Lai Lambert TOE SEWER, PRODUCTION SANITIZER Unavailable [phone] Kami Meneses MD Unavailable Anette Bond MD Unavailable [phone] Kay Gordon TOE SEWER, PRODUCTION SANITIZER Unavailable Kami Meneses MD Unavailable [phone] Kami Meneses MD Unavailable [phone] Kami Meneses MD Unavailable [phone] Reason for Visit * Reason Comments Medication Refill Encounter Details Date Type Department Care Team (Late st Contact Info) Description 10/15/2021 Refill [facility] - Gastroenterology [facility] [address]2 [place] [address] Ingrid Mccloud Ashley, PAC [address] [place] [address] Medication Refill Social History Tobacco Use Types [...] Ashlie Barrios RN - 10/16/2021 11:37 AM PULLEY WORKER Medication refilled and signed per [facility] chronic medication standing order for pediatric and adult patients. EY WORKER documented in this encounter Plan of Treatment Upcoming Encounters Date Type Department Care Team (Late st Contact Info) Description 04/28/2025 11:15 AM CDT Office Visit [facility] #[address] [place] [address] Kami Meneses MD #[address] [address] documented as of this encounter Visit Diagnoses Not on filedocumented in this encounter Care Teams Home Health Care Case Manager Relationship Specialty Start Date End Date Fuentes Orellana MD [address] [place] [address] PCP - General Family Medicine 07/06/15 Brent Dickinson DO [address] [address] Gastroenterology 06/27/16 Faviola Jiménez APRN, PRODUCTION SANITIZER [address] [place] [address] Nurse Practitioner Advanced Practice Nurse 07/22/16 Shawnee Mckinney MD [address] [facility] [address] [place] [address] Urologist Urology 06/07/19 Chicho Clayton MD [address] [facility] 7 [place] [address] Oncology 06/13/19 Lai Lambert APRN, PRODUCTION SANITIZER [address] [place] [address] Nurse Practitioner Advanced Practice Nurse 02/10/23 Kami Meneses MD #[address] [address] Consulting Physician Urology 06/16/23 Anette Bond MD #2 [place] [address] Consulting Physician Gastroenterology 12/25/22 Kay Gordon APRN, PRODUCTION SANITIZER [address]2 [place] [address] Nurse Practitioner Advanced Practice Nurse 06/16/24 Kami Meneses MD #[address] [facility], [facility] [address] [place] [address] Consulting Physician Urology 08/19/24 Kami Meneses MD #2 [address] [facility], [facility] [address] [place] [address] Consulting Physician Urology 01/06/25 Kami Meneses MD #2 [address] [facility], [facility] [address] [place] [address] Consulting Physician Urology 03/08/25 documented as of this encounter
--- OUTSIDE RECORDS SUMMARY | 2025-04-19 11:46 | XMS_ITS | Clinical Summary ---
Author Organization [facility] [address] Address [address] [place] [address] Care Team Providers Care Paper Coating Supervisor Name Role Phone Fuentes Orellana MD Primary Care Provider Itz Iyer MD Unavailable Shawnee Mckinney MD Unavailable [phone] Chicho Clayton MD Unavailable Maria Guadalupe Palacios RN Unavailable Unava ilable Lupillo Davenport MD Unavailable [phone] Danis Meza GOVERNMENT INSTRUCTOR Unavailable Antonette Owens NP Unavailable Aniceto [...] immediate release tabletIndicat ions:Coronary artery disease involving [place] coronary artery of [place] heart without angina pectoris TAKE 1 TABLET(25 [...] day 180 tablet 3 04/12/20 25 Active Brilinta 60 mg tablet Take 1 tablet [...] (10/21/2022): Added automatically from request for surgery [id number] Assessment & Plan (10/30/2022 2:56 PM ASSISTANT PROFESSOR OF EDUCATION): - OR 3/2 for planned R CEA - OU status, Q2h NV/VS monitoring - Bedrest today, OOB/PT POD #1 - SBP goal 100-160, nicardipine for elevated BP - Continue aspirin and statin - Plan to stager home medications and resume overnight Atherosclerosis of [place] ar teries of extremities with intermittent claudication, bilateral legs 06/03/2022 Melanoma 01/10/2021 Anxiety 01/10/2021 DM (diabetes mellitus) 01/10/2021 Assessment & Plan (10/30/2022 9:59 AM ASSISTANT PROFESSOR OF EDUCATION): - A1c 7.6% 10/2022 - SSI while inpatient - CC diet when eating Elevated left ventricular end-diastolic pressure (LVEDP) 11/15/2019 Encounter for surgical after care following surgery of circulatory system 05/20/2019 Prostate cancer 09/10/2018 Assessment & Plan (10/27/2018 9:53 AM ASSISTANT PROFESSOR OF EDUCATION): Follows with urology, has his PSA monitored it is increasing, but still WNL 1.4 Assessment & Plan (09/22/2018 11:35 AM ASSISTANT PROFESSOR OF EDUCATION): Has close follow up with his oncologist. His PSA was slightly elevated on last check. Hyperlipidemia 09/21/2017 Assessment & Plan (06/30/2018 9:38 AM CDT): His last lipid panel was within acceptable range; he will continue on a high intensity statin. Assessment & Plan (09/21/2017 11:34 AM ASSISTANT PROFESSOR OF EDUCATION): Continue Lipitor 40 mg daily. Essential hypertension 07/20/2017 Assessment & Plan (10/30/2022 2:57 PM ASSISTANT PROFESSOR OF EDUCATION): - Tight BP goals post-procedure - Continue home medications as indicated by BP goals as above, staggering overnight for gentle BP control Assessment & Plan (10/27/2018 9:54 AM ASSISTANT PROFESSOR OF EDUCATION): Hypertension is unchanged. Dietary sodium restriction. Blood pressure will be reassessed in 4 weeks. Assessment & Plan (09/22/2018 11:38 AM ASSISTANT PROFESSOR OF EDUCATION): Hypertension remains elevated. He is increasing his [...] today Assessment & Plan (09/21/2017 11:33 AM ASSISTANT PROFESSOR OF EDUCATION): Blood pressure is well controlled today. Last visit we added HCTZ 12.5 mg daily. Continue current medications Assessment & Plan (08/10/2017 11:26 AM ASSISTANT PROFESSOR OF EDUCATION): Blood pressure is not controlled. Add hydrochlorothiazide 12.5 mg p.o. daily. He is compliant with medications but always add salt to food which I advised him not to do that. Assessment & Plan (07/20/2017 9:19 AM ASSISTANT PROFESSOR OF EDUCATION): Blood pressure remains uncontrolled. We will order renal Doppler ultrasound to rule out renal artery stenosis given the fact that he has peripheral vascular disease and coronary artery disease. I will increase amlodipine from 5-10 mg p.o. daily. If that does not control the blood pressure we will add hydrochlorothiazide 12.5 mg p.o. Daily. Coronary artery disease invo lving kasigl[place] coronary artery of [place] heart without angina pectoris 07/20/2017 Assessment & Plan (10/30/2022 9:58 AM ASSISTANT PROFESSOR OF EDUCATION): - Continue home medications as able - Maintained on Brilinta as an outpatient; held 1 week prior to OR - Will discuss with surgery team when to safely resume post-procedure Assessment & Plan (10/27/2018 9:59 AM ASSISTANT PROFESSOR OF EDUCATION): Coronary artery disease is improving with lifestyle modifications. Continue current treatment regimen. Cardiac status will be reassessed in 3 months. No chest pain. Minimal SOB. Continue asa, statin, brilinta Assessment & Plan (09/22/2018 11:36 AM ASSISTANT PROFESSOR OF EDUCATION): Coronary artery disease is unchanged. Regular aerobic [...] BB. Assessment & Plan (09/21/2017 11:33 AM ASSISTANT PROFESSOR OF EDUCATION): Continue aspirin, Brilinta, Toprol XL and atorvastatin. Assessment & Plan (08/10/2017 11:27 AM ASSISTANT PROFESSOR OF EDUCATION): Continue Brilinta and aspirin. Asymptomatic. Assessment & Plan (07/20/2017 9:19 AM ASSISTANT PROFESSOR OF EDUCATION): Continue aspirin, Brilinta, Lipitor , metoprolol PVD (peripheral vascular disease) 07/20/2017 Assessment & Plan (10/27/2018 9:21 AM ASSISTANT PROFESSOR OF EDUCATION): S/P bilateral ALVA angioplasty; right EIA angioplasty/stent 11/21/14. S/P aortoiliac angioplasty/stent 05/28/09. Continues on asa, statin and brilinta Assessment & Plan (09/21/2017 11:34 AM ASSISTANT PROFESSOR OF EDUCATION): He follows up with vascular surgery at [facility] Assessment & Plan (08/10/2017 11:27 AM ASSISTANT PROFESSOR OF EDUCATION): Renal ultrasound suggest more than 60% stenosis in the right renal artery and infrarenal stenosis 50-70%. He follows up with Dr. Foley from vascular surgery at [facility] Assessment & Plan (07/20/2017 9:20 AM ASSISTANT PROFESSOR OF EDUCATION): Patient will follow up with Dr. Foley from vascular surgery. He does have some claudication when he walks. Intrinsic urethral sphincter deficiency 06/08/20 15 Resolved Problems Problem Noted Date Diagnosed Date Resolved Date Dizzinesses 10/27/2018 02/09/2019 Assessment & Plan (10/27/2018 10:17 AM ASSISTANT PROFESSOR OF EDUCATION): Persistent dizziness. Has stopped caffeine intake. Has [...] implant or graft 6 02/09/2019 Atherosclerosis of [place] artery of extremity 04/15/20 16 02/09/2019 Assessment & Plan (09/22/2018 11:26 AM ASSISTANT PROFESSOR OF EDUCATION): 80% circumflex s/p RICHARD. Moderate 30 % LAD with bridging Impotence of organic origin 09/18/2015 02/09/2019 Urinary tract infection 01/18/201501/29 Incontinence 01/18/2015 02/09/2019 Stricture, urethra 07/31/2011 9 Overview (12/10/2017): Description: Dilation 06/09/11 Nocturia 11/28/2010 02/09/2019 Hypertension 05/16/2009 02/09/2019 Assessment & Plan (10/27/2018 10:11 AM ASSISTANT PROFESSOR OF EDUCATION): Hypertension is {improving/stable/worsenin}. {plan; hypertension for POC:1348282609} Blood pressure will be reassessed {plan; follow-up 2 weeks/4weeks/3months:[id number]}. Increase amolodipine to 10 mg Continue all [...] Type Department Care Team Description 04/05/[address] [facility] Medical Group Cardiology [address] [place] [address] Kay Ward NP 03/28/2025 11:00 AM CDT Office Visit [facility] Medicine Oncology [address] [place] [address] Floor 5 [place] [address] Chicho Clayton MD Prostate cancer (HCC) (Primary Dx) 03/28/2025 10:00 AM CDT Lab [facility] Medicine Oncology Lab [address] [place] [address] 5 [place] [address] Prostate cancer (HCC) 03/28/2025 9:45 AM CDT Lab [facility] - Lab Collection [facility] Floor 5 [place] [address] Prostate cancer (HCC) 03/24/2025 Orders Only [facility] Medicine Surgery [address] [facility] Advanced Medicine 8th [place] [address] [place] [address] Aniceto Foley MD Atherosclerosis of [place] arteries of extremities with intermittent claudication, right leg (Primary Dx) 03/17/2025 12:15 PM CDT Pre-Admission Testing [facility] Pre Anesthesia Testing [facility] [place] [address] Preoperative testing (Primary Dx) 03/16/2025 11:59 PM CDT Anesthesia Event [facility] Operating Room [facility] [place] [address] Carrie Silva PA 03/08/2025 10:15 AM CDT Office Visit [facility] Medicine Surgery [address] [facility] Advanced [facility] 8th [place] [address] [place] [address] Aniceto Foley MD PVD (peripheral vascular disease) (Primary Dx); Atherosclerosis of [place] arteries of extremities with intermittent claudication, bilateral legs 03/08/2025 9:30 AM CDT Ancillary Procedure [facility] Medicine Vascular Lab at the [facility] Advanced Medicine [address] [facility] 8th [place] [address] [place] [address] Atherosclerosis of [place] arteries of extremities with intermittent claudication, bilateral legs 03/08/2025 7:49 AM CDT - 03/08/2025 11:59 PM CDT Hospital Encounter [facility] [address] [place] [address] PVD (peripheral vascular disease) Discharge Disposition: Discharge to home or self care 02/27/[address] [facility] Medical Group Cardiology [address] [place] [address] Kay Ward NP 02/07/[address] [facility] Medical Group Cardiology [address] [place] [address] Kay Ward NP from Last [...] INTRAOCULAR LENS IMPLANT Right ANGIO SELECTIVE CAROTID TSO RIGHT 10/15/2022 Right MELANOMA RESECTION 12/17/2014 Right [...] Smoking Tobacco: Former Cigarettes 1.5 19 1 6 - 1984 Passive Smoke Exposure: Past Smokeless Tobacco: Never Tobacco Cessation:Counseling Given: Not Answered Alcohol Use Standard Drinks/Week Comments Yes 12 (1 standard drink = 0.6 oz pu re alcohol) [facility] [employer] Answer Date Recorded In the past 12 months has [employer], [employer], oil, or water [employer] threatened to shut off services in your home? No 11/11/2024 Social Connection and Isolation Panel Answer Date Recorded In a typical week, how many times do you talk on the phone with family, friends, or neighbors? More than three times a week 11/11/2024 How often do you get togethe r with friends or relatives? Once a week 11/11/2024 How often do you attend [facility] or moravian services? More than 4 times per year 11/11/2024 Do you belong to any clubs o r organizations such as islam groups, unions, fraternal or athletic groups, or [...] in the past 12 m [facility], were you homeless or living in a half-way (including now)? No 11/11/2024 Personal Safety Answer Date Recorded Have you ever been in or are you currently in a harmful physical or emotional relationship or is someone making you feel afraid or unsafe? Denies 03/17/2025 Sex and Gender Information Value Date Recorded Sex Assigned at Not on file Legal Sex Male 12:32 AM ASSISTANT PROFESSOR OF EDUCATION Gender Identity Not on file Sexual Orientation [...] Description 04/24/2025 8:30 AM CDT Hospital Encounter [facility] Operating Room 1 [place] [address] Aniceto Foley MD [address] [facility] [address] [place] [address] PAD (peripheral artery disease) 04/24/2025 8:30 AM CDT Anesthesia Event [facility] Operating Room 1 [place] [address] Swetha Barr, GOVERNMENT INSTRUCTOR [address] [facility] [phone] [place] [address] 04/24/2025 8:30 AM CDT - 04/24/2025 11:45 AM CDT Surgery [facility] Operating Room 1 [place] [address] Aniceto Foley MD [address] [facility] [address] [place] [address] ANGIOGRAM - HYBRID ROOM aorto iliac angiogram Health Maintenance Due Date Last Done Comments Albumin Creatinine Ratio, Urine 1950 Colon Cancer Screening-Colonoscopy 1950 Depression Screening 1950 Hepatitis C Screening 1950 Dilated Eye Exam 1949 Foot Exam 1949 Hepatitis B Screening 1967 Zoster Vaccine (1 of 2) 1999 Well Visit 65+ 2014 Covid-19 Vaccine (2023-2 5 season) 2024 11/25/2020, [...] Liriano RN Medical Devices Implanted Type [facility] Director Device Identifier Shelf Expiration Date Model / [...] and 61 to 70 cm pressure-regulating balloon. [employer] Sandra Vascu-Guard 8x.8cm Peripheral Patch Vascular Bovine Pericardium Vg-[id number] - [id number] Implanted:Qty: 1 on 10/30/2022 by Aniceto Foley MD at [facility] Right: Carotid [place] Nirvaha Sandra [id number] 07/09/2023 [id number]-[id number] / / [id number] [employer] Sandra Ams 800 Kit Accessory Sterile Disposable Latex Free Urinary [id number] - [id number] Implanted:Qty: 1 on 11/09/2024 by Kami Meneses MD at [facility] N/A: Urethra [employer] Sandra [id number] 03/09/2029 [id number] / / [id number] [employer] Sandra Cuff Urethral Ams 800 Inhibizone 3.5cm [id number] - [id number] Implanted:Qty: 1 on 11/09/2024 by Kami Meneses MD at [facility] N/A: Urethra [employer] Sandra [id number] 02/22/2026 [id number] / / [id number] [employer] Sandra Ams 800 Pressure Balloon Sphincter 61-70cu Cm Implant Urological [id number] - [id number] Implanted:Qty: 1 on 11/09/2024 by Kami Meneses MD at [facility] N/A: Abdomen [employer] Sandra [id number] 03/20/2029 [id number] / / [id number] [employer] Sandra Ams 800 Control Pump Sphincter Implant Urological Inhibizone [id number] - [id number] Implanted:Qty: 1 on 11/09/2024 by Kami Meneses MD at [facility] N/A: Scrotum [employer] Sandra [id number] 02/15/2026 [id number] / / [id number] Procedures Procedure Name Priority Date/Time Associated Diagnosis [...] Routine) 03/08/2025 9:29 AM CDT Atherosclerosis of [place] arteries of extremities with intermittent claudication, bilateral legs CTA ABDOMINAL AORTA AND BILATERAL ILIOFEMORAL RUNOFF Schedule Routine, Read Routine (OP Routine) 03/08/2025 8:53 AM CDT PVD (peripheral vascular disease) LIPID PANEL Routine 03/22/2024 10:23 AM CDT Coronary artery disease involving [place] coronary artery of [place] heart without angina pectoris from Last 3 Months or Most Recently Relevant to Health Maintenance Results * Differential, auto (03/28/2025 9:50 AM CDT) Neutrophil abs 4.37 1.50 - 6.50 K/cumm Comment:Testing performed by : [facility], [address] [place], [place] [phone] Lymphocyte abs 1.46 0.80 - 3.30 K/cumm [facility] Comment:Testing performed by : [facility], [address] [place], [place] [phone] Monocyte abs 0.50 0.20 - 0.80 K/cumm [facility] Comment:Testing performed by : [facility], [address] [place], [place] [id number] Eosinophil abs 0.15 0.00 - 0.50 K/cumm [facility] Comment:Testing performed by : [facility], [address] [place], [place] [id number] Basophil abs 0.04 0.00 - 0.10 K/cumm [facility] Comment:Testing performed by : [facility], [address] [place] [address] Neutrophil pct 67.0 % [facility] Comment: Interpretive Data Percent cell count reference ranges are not reported, since discordance with absolute values may lead to misinterpretation of CBC data. Current Interpretive Data was last revised on 2017. Testing performed by: [facility], [address] [place] [phone] Lymphocyte pct 22.4 % [facility] Comment: Interpretive Data Percent cell count reference ranges are not reported, since discordance with absolute values may lead to misinterpretation of CBC data. Current Interpretive Data was last revised on 2017. Testing performed by: [facility], [address] [place] [phone] Monocyte pct 7.7 % [facility] Comment: Interpretive Data Percent cell count reference ranges are not reported, since discordance with absolute values may lead to misinterpretation of CBC data. Current Interpretive Data was last revised on 2017. Testing performed by: [facility], [address] [place] [phone] Eosinophil pct 2.3 % [facility] Comment: Interpretive Data Percent cell count reference ranges are not reported, since discordance with absolute values may lead to misinterpretation of CBC data. Current Interpretive Data was last revised on 2017. Testing performed by: [facility], [address] [place] [address] Basophil pct 0.6 % [facility] Comment: Interpretive Data Percent cell count reference ranges are not reported, since discordance with absolute values may lead to misinterpretation of CBC data. Current Interpretive Data was last revised on 2017. Testing performed by: [facility], [address] [place] [address] Blood 03/28/2025 9:50 AM CDT 03/28/2025 9:52 AM CDT us Chicho Clayton MD LAB BLOOD ORDERABLES Final Resul t [facility] [place] [address] * (ABNORMAL) CBC with auto differential (03/28/2025 9:50 AM CDT) WBC 6.53 3.80 - 9.90 K/cumm Comment:Testing performed by : [facility], [address] [place] [address] Hgb 11.1(L) 13.0 - 17.5 g/dL [facility] Comment:Testing performed by : [facility], [address] [place] [address] Hct 32.5(L) 38.9 - 50.3 % [facility] Comment:Testing performed by : [facility], [address] [place] [address] Plt 162 150 - 400 K/cumm [facility] Comment:Testing performed by : [facility], [address] [place] [address] MPV 8.3 6.8 - 10.4 fL [facility] Comment:Testing performed by : [facility], [address] [place] [address] RBC 3.50(L) 4.30 - 5.80 M/cumm [facility] Comment:Testing performed by : [facility], [address] [place] [address] MCV 92.8 81.3 - 96.4 fL [facility] Comment:Testing performed by : [facility], [address] [place] [address] MCH 31.6 27.1 - 33.3 pg [facility] Comment:Testing performed by : [facility], [address] [place] [address] MCHC 34.0 32.3 - 35.7 g/dL [facility] Comment:Testing performed by : [facility], [address] [place] [address] RDW CV 16.1(H) 11.1 - 14.9 % [facility] Comment:Testing performed by : [facility], [address] [place] [address] NRBC abs 0.00 0.00 - 0.01 K/cumm [facility] Comment:Testing performed by : [facility], [address] [place] [address] Blood 03/28/2025 9:50 AM CDT 03/28/2025 9:52 AM CDT us Chicho Clayton MD LAB BLOOD ORDERABLES Final Resul t [facility] [place] [address] * (ABNORMAL) eGFR (03/28/2025 9:50 AM CDT) [...] data was last reviewed 2021. Blood 03/28/2025 9:5 0 AM CDT 03/28/2025 9:53 AM CDT Chicho Clayton MD LAB BLOOD ORDERABLES Final Resul t Performing Organization Address [facility] de Phone Number [facility] [place] [address] * (ABNORMAL) PSA diagnostic (03/28/2025 9:50 AM [...] 9:50 AM CDT 03/28/2025 9:53 AM CDT Chicho Clayton MD LAB BLOOD ORDERABLES Final Resul t Performing Organization Address [facility] de Phone Number [facility] [place] [place] [address] * Lactate dehydrogenase (LD) (03/28/2025 9:50 AM CDT) Lactate dehydrogenase (LDH) 118 100 - 250 Units/L Blood 03/28/2025 9:50 AM CDT 03/28/2025 9:53 AM CDT us Chicho Clayton MD LAB BLOOD ORDERABLES Final Resul t [facility] [place] [address] * (ABNORMAL) Comprehensive metabolic panel (03/28/2025 9:50 AM CDT) Pathologist [facility] Sodium 141 135 - 145 mmol/L Potassium, pl 4.8 3.3 - 4.9 mmol/L [facility] Chloride 109 97 - 110 mmol/L [facility] CO2 26 22 - 32 mmol/L [facility] Anion gap 6 2 - 15 mmol/L [facility] BUN 35(H) 6 - 25 mg/dL [facility] Creatinine 1.53(H) 0.80 - 1.30 mg/dL [facility] Glucose 163 70 - 199 mg/dL [facility] Comment: Interpretive Data Fasting glucose >/= 126 [...] 2022. Calcium 10.5(H) 8.5 - 10.3 mg/dL [facility] Bilirubin, total 0.3 0.1 - 1.2 mg/dL [facility] Protein, pl 6.7 6.5 - 8.5 g/dL [facility] Albumin 3.7 3.5 - 5.0 g/dL [facility] Alk phos 75 40 - 130 Units/L [facility] ALT 19 7 - 55 Units/L [facility] AST 18 10 - 50 Units/L [facility] Blood 03/28/2025 9:50 AM CDT 03/28/2025 9:53 AM CDT us Chicho Clayton MD LAB BLOOD ORDERABLES Final Resul t [facility] [place] [address] * (ABNORMAL) eGFR (03/17/2025 1:05 PM CDT) [...] 03/17/2025 1:05 PM CDT us Sagrario Fernandez NP LAB BLOOD ORDERABLES Fi nal Result [facility] [address] [place] [address] * Differential, auto (03/17/2025 1:05 PM CDT) Neutrophil abs 5.18 1.50 - 6.50 K/cumm Imm gran abs 0.10 0.00 - 0.10 K/cumm [facility] Lymphocyte abs 1.75 0.80 - 3.30 K/cumm [facility] Monocyte abs 0.65 0.20 - 0.80 K/cumm [facility] Eosinophil abs 0.14 0.00 - 0.50 K/cumm [facility] Basophil abs 0.05 0.00 - 0.10 K/cumm [facility] Neutrophil pct 65.8 % [facility] Comment: Interpretive Data Percent cell count reference ranges are not reported, since discordance with absolute values may lead to misinterpretation of CBC data. Current Interpretive Data was last revised on 2017. Imm gran pct 1.3 % [facility] Comment: Interpretive Data Percent cell count reference ranges are not reported, since discordance with absolute values may lead to misinterpretation of CBC data. Current Interpretive Data was last revised on 2017. Lymphocyte pct 22.2 % [facility] Comment: Interpretive Data Percent cell count reference ranges are not reported, since discordance with absolute values may lead to misinterpretation of CBC data. Current Interpretive Data was last revised on 2017. Monocyte pct 8.3 % [facility] Comment: Interpretive Data Percent cell count reference ranges are not reported, since discordance with absolute values may lead to misinterpretation of CBC data. Current Interpretive Data was last revised on 2017. Eosinophil pct 1.8 % [facility] Comment: Interpretive Data Percent cell count reference ranges are not reported, since discordance with absolute values may lead to misinterpretation of CBC data. Current Interpretive Data was last revised on 2017. Basophil pct 0.6 % [facility] Comment: Interpretive Data Percent cell count reference ranges are not reported, since discordance with absolute values may lead to misinterpretation of CBC data. Current Interpretive Data was last revised on 2017. Blood 03/17/2025 1:05 PM CDT 03/17/2025 1:05 PM CDT Sagrario Fernandez GOVERNMENT INSTRUCTOR LAB BLOOD ORDERABLES Fi nal Result Performing Organization Address [facility] Co de Phone Number [facility] [address] [employer] [place] [address] * (ABNORMAL) CBC with auto differential (03/17/2025 1:05 PM CDT) [facility] WBC 7.87 3.80 - 9.90 K/cumm Hgb 11.5(L) 13.0 - 17.5 g/dL [facility] Hct 35.4(L) 38.9 - 50.3 % [facility] Plt 174 150 - 400 K/cumm [facility] MPV 10.8 9.1 - 12.3 fL [facility] RBC 3.72(L) 4.30 - 5.80 M/cumm [facility] MCV 95.2 81.3 - 96.4 fL [facility] MCH 30.9 27.1 - 33.3 pg [facility] MCHC 32.5 32.3 - 35.7 g/dL [facility] RDW CV 14.6 11.1 - 14.9 % [facility] RDW SD 50.9(H) 35.7 - 48.1 fL [facility] NRBC abs 0.00 0.00 - 0.01 K/cumm [facility] Blood 03/17/2025 1:05 PM CDT 03/17/2025 1:05 PM CDT Sagrario Fernandez GOVERNMENT INSTRUCTOR LAB BLOOD ORDERABLES Fi nal Result Performing Organization Address City/[facility]/ZIP Co de Phone Number [facility] [address] Department [employer] [place], [place] [id number] * aPTT (03/17/2025 1:05 PM CDT) [facility] aPTT 34 28 - 38 sec Comment: Interpretive Data Heparin therapeutic range: 66.0 - 100.0 seconds. Range based on correlation with therapeutic heparin activity range of 0.3 - 0.7 Units/mL. Current interpretive data was last revised on 2023. Blood 03/17/2025 1:05 PM CDT 03/17/2025 1:05 PM CDT Sagrario Fernandez NP LAB BLOOD ORDERABLES Fi nal Result Performing Organization Address [facility] de Phone Number [facility] [address] [facility] [place] [address] * Protime-INR (03/17/2025 1:05 PM CDT) PT 10.7 9.7 - 13.0 sec INR 0.99 0.90 - 1.20 [facility] Comment: Interpretive data Oral anticoagulant therapeutic ranges: Venous thromboembolism prophylaxis or treatment: 2.0-3.0 CARDIOLOGY Standard range: 2.0-3.0 High-intensity range: 2.5-3.5 Refer to indication-specific guidelines for appropriate target ranges for prosthetic heart valve replacement. Current interpretive data was last revised on 2019. Blood 03/17/2025 1:05 PM CDT 03/17/2025 1:05 PM CDT Sagrario Fernandez NP LAB BLOOD ORDERABLES Fi nal Result Performing Organization Address [facility] de Phone Number [facility] [address] [facility] [place] [address] * (ABNORMAL) Hemoglobin A1c (03/17/2025 1:05 PM CDT) Hgb A1C 6.7(H) 4.0 - 5.6 % Estimated Average Glucose 146 mg/dL [facility] Comment: The ADA recommends reporting an estimated Average Glucose (eAG) with all Hemoglobin A1c results using the equation derived from a study of 507 normal and diabetic adults. Minority populations were underrepresented and children were not included. (Diabetes Care 31:7944-5962, 2008). The eAG is not equivalent to a fasting glucose. Blood 03/17/2025 1:05 PM CDT 03/17/2025 1:05 PM CDT Sagrario Fernandez NP LAB BLOOD ORDERABLES Fi nal Result [facility] [address] [place] [address] * (ABNORMAL) Basic metabolic panel (03/17/2025 1:05 PM CDT) [facility] Sodium 139 135 - 145 mmol/L Potassium, pl 4.3 3.3 - 4.9 mmol/L [facility] Chloride 105 97 - 110 mmol/L [facility] CO2 23 22 - 32 mmol/L [facility] Anion gap 11 2 - 15 mmol/L [facility] BUN 35(H) 6 - 25 mg/dL [facility] Creatinine 1.31(H) 0.80 - 1.30 mg/dL [facility] Glucose 76 70 - 199 mg/dL [facility] Comment: Interpretive Data Fasting glucose >/= 126 [...] 2022. Calcium 10.9(H) 8.5 - 10.3 mg/dL [facility] Blood 03/17/2025 1:05 PM CDT 03/17/2025 1:05 PM CDT us Sagrario Fernandez GOVERNMENT INSTRUCTOR LAB BLOOD ORDERABLES Fi nal Result Performing Organization Address [facility]/ZIP Co de Phone Number [facility] [address] [place] [address] * Type and screen (03/17/2025 1:04 PM CDT) ABO Rh A Negative Ashlee, indirect Negative [facility] Blood 03/17/2025 1:04 PM CDT 03/17/2025 1:25 PM CDT Narrative [facility] - 03/17/2025 2:11 PM CDT Is this test being ordered in advance for a procedure?->Yes Expected date of procedure:->04/03/25 Has the patient been transfused in the past 3 months?->No Sagrario Fernandez NP LAB BLOOD BANK TEST ORD ERABLES Final Result Performing Organization Address [facility] Co de Phone Number [facility] [address] [place] [address] * ECG 12 lead (03/17/2025 12:53 PM CDT) 03/17/2025 12:5 3 PM CDT Narrative [facility] - 03/19/2025 4:45 PM CDT Vent Rate: 60 bpm RR Interval: 997 msec WV Interval: 219 msec QRS Duration: 145 msec QT Interval: 381 msec QTC Interval: 381 msec P-R-T [place]: 46 - -19 - 37 degrees IMPRESSION: SINUS RHYTHM WITH FIRST DEGREE AV BLOCK INTRAVENTRICULAR CONDUCTION DELAY ABNORMAL ECG Electronically Signed By: Casimiro Boggs [facility] Card Sagrario Fernandez NP ECG ORDERABLES Final R esult Performing Organization Address City/[facility]/ZIP Co de Phone Number [facility] [employer] [facility] * US Arterial Doppler Lower Extremity Bilateral (03/08/2025 9:29 AM CDT) Anatomical Region Laterality Modality Vascular Bilateral Ultrasound 03/08/2025 9:06 AM CDT Narrative 03/08/2025 9:07 PM CDT [facility] - Department of Vascular Surgery, Vascular Laboratory [address] [place] [address] Lower Extremity Arterial Doppler Report Patient Name: RIVERA FREEMAN : 1950 Study Date: 03/08/2025 9:06:00 AM Gender: M Tech: Jay Hutson RVT Location: [facility] Provider: ANICETO FOLEY Quality: Adequate Order Provider: ANICETO FOLEY PROCEDURES: Arterial Report: Bilateral lower extremity arterial Doppler exam at rest. INDICATIONS: I70.213 Atherosclerosis of [place] arteries of extremities with intermittent claudication, bilateral legs. MEASUREMENTS: Right Value Units Left Value Units Rt Brachial Pressure 149 mmHg Lt Brachial Pressure 147 mmHg Rt ASSOCIATE PRODUCER Pressure 62 mmHg Lt ASSOCIATE PRODUCER Pressure 121 mmHg Rt DPA Pressure 50 mmHg Lt DPA Pressure 97 mmHg Rt 1st Digit Pressure 31 mmHg Lt 1st Digit Pressure 62 mmHg Rt PT TORREY Resting 0.42 Lt PT TORREY Resting 0.81 Rt AT TORREY Resting 0.34 Lt AT TORREY Resting 0.65 Rt Digit/Arm Index 0.21 Lt Digit/Arm Index 0.42 Right Value Units Left Value Units FINDINGS: Performing Pol[employer]ilicon Preparation Worker: Jay Hutson RVT. Right Common Femoral Artery [...] Procedure Note Aniceto Foley MD - 03/08/2025 [employer] [facility] [employer] [facility] - Department of Vascular Surgery,Vascular Laboratory [address] [place] [address] Lower Extremity Arterial Doppler Report Patient Name: RIVERA FREEMAN : 1950 Study Date: 03/08/2025 9:06:00 AM Gender: M Tech: Jay Hutson RVT Location: [facility] Ref Provider: ANICETO FOLEY Quality: Adequate Order Provider: ANICETO FOLEY PROCEDURES: Arterial Report: Bilateral lower extremity arterial Doppler exam at rest. INDICATIONS: I70.213 Atherosclerosis of [place] arteries of extremities withintermittent claudication, bilateral legs. MEASUREMENTS: Right Value Units Left Value Units Rt Brachial Pressure 149 mmHg Lt Brachial Pressure 147 mmHg Rt ASSOCIATE PRODUCER Pressure 62 mmHg Lt ASSOCIATE PRODUCER Pressure 121 mmHg Rt DPA Pressure 50 mmHg Lt DPA Pressure 97 mmHg Rt 1st Digit Pressure 31 mmHg Lt 1st Digit Pressure 62 mmHg Rt PT TORREY Resting 0.42 Lt PT TORREY Resting 0.81 Rt AT TORREY Resting 0.34 Lt AT TORREY Resting 0.65 Rt Digit/Arm Index 0.21 Lt Digit/Arm Index 0.42 Right Value Units Left Value Units FINDINGS: Performing Polysilicon Preparation Worker: Jay Hutson RVT. Right Common Femoral Artery [...] above. Electronically Signed By: Aniceto Foley MD [facility] 03/08/2025 8:21:05 PM CDT Aniceto Foley MD [facility] US PROCEDURES Final Resul t * CTA [...] it. Electronically signed by: Leon Bradshaw M.D. Aniceto Foley MD IMG CT PROCEDURES [...] revised on 2018. Triglycerides 115 <=149 mg/dL [facility] Comment: Interpretive Data Ages < [...] revised on 2018. HDL 37(L) >=40 mg/dL [facility] Comment: Interpretive Data Ages < [...] 2018. LDL, calculated 67 <=129 mg/dL [facility] Comment: Interpretive Data Ages < [...] revised on 2018. Non-HDL Cholesterol 90 mg/dL [facility] Comment: Interpretive Data Ages < or = [...] last revised on 2018. Chol/HDL ratio 3 [facility] Blood 03/22/2024 10:2 3 AM CDT 03/22/2024 10:52 AM CDT us Antonette Rater GOVERNMENT INSTRUCTOR LAB BLOOD ORDERABLES Final Resul t [facility] [place] [address] from Last 3 Months or Most Recently Relevant to Health Maintenance Additional Health Concerns Active Problems Noted Date Diagnosed Date Autogenerated Problem 03/28/2025 Insurance [facility] MEDICARE MEDICARE [facility] MEDICARE [facility] MEDICARE [facility] Advance Directives For more information, please contact: [phone] * Full Code (Latest Code Status on File) Date Activated Date Inactivated Comments 11/09/2024 2:36 PM 11/12/2024 6:36 PM * Full Code Date Activated Date Inactivated Comments 10/30/2022 5:29 PM 10/31/2022 7:15 PM * Full Code Date Activated Date Inactivated Comments 08/16/2019 9:46 AM 08/16/2019 5:30 PM Care Teams Paper Coating Supervisor Relationship Specialty Start Date End Date Fuentes Orellana MD PCP - General 11/28/16 Itz Iyer MD [address] [facility] [address] [place] [address] Consulting Physician Urology 05/31/18 Shawnee Mckinney MD [address] [facility] [address] [place] [address] Referring Physician Urology 06/03/18 Chicho Clayton MD [address] [facility] [address] [place] [address] Medical Oncologist/Hematologis t Medical Oncology 06/07/18 Maria Guadalupe Palacios RN Registered Nurse 06/10/18 Lupillo Davenport MD Referring Physician Radiation Oncology 06/16/18 Danis Meza NP [address] [facility] [address] [place] [address] Nurse Practitioner Urology 10/06/22 Antonette Owens NP [address] [facility] [address] [place] [address] Nurse Practitioner Cardiovascular Disease 10/06/22 Aniceto Foley MD [address] [place] [address] Surgeon Vascular Surgery 10/31/22
--- OUTSIDE RECORDS SUMMARY | 2025-04-19 11:46 | XMS_ITS | Encounter Summary ---
Author Organization [facility] Address [address] [place] [address] Phone Care Team Providers Care Jewel Cupping Machine Operator Name Role Phone Fuentes Orellana MD Primary Care Provider [phone] Itz Iyer MD Unavailable [phone] Lupillo Davenport MD Unavailable [phone] Lupillo Davenport MD Unavailable [phone] Shawnee Mckinney MD Unavailable [phone] Chicho Clayton MD Unavailable Newton Weeks MD Unavailable [phone] Maria Guadalupe Palacios RN Unavailable Unava ilable Lupillo Davenport MD Unavailable [phone] Itz Iyer MD Unavailable [phone] Itz Iyer MD Unavailable [phone] Itz Iyer MD Unavailable [phone] Itz Iyer MD Unavailable [phone] Itz Iyer MD Unavailable [phone] Itz Iyer MD Unavailable [phone] ComDanis otto MEDIA RELATIONS MANAGER Unavailable Antonette Owens MEDIA RELATIONS MANAGER Unavailable Aniceto Foley MD Unavailable [phone] Encounter Details Date Type Department Care [...] on file 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 Gender Identity Not on file Sexual Orientation Choose not to disclose 2018 8:58 AM CDT documented as of this encounter Plan of Treatment Upcoming Encounters Date Type Department Care Team (Latest Contact Info) Description 04/24/2025 8:30 AM CDT Hospital Encounter [facility] Operating Room [address] [place] [address] Aniceto Foley MD [address] [place] [address] PAD (peripheral artery disease) 04/24/2025 8:30 AM CDT Anesthesia Event [facility] Operating Room [address] [place] [id number] Swetha Barr, MARÍA [address] [facility] [id number] [place], [place] [id number] 04/24/2025 8:30 AM CDT - 04/24/2025 11:45 AM CDT Surgery [facility] Operating Room [address] [place] [phone] Aniceto Foley MD [address] [place] [address] ANGIOGRAM - HYBRID ROOM aorto iliac angiogram [...] filedocumented in this encounter Care Teams Jewel Cupping Machine Operator Relationship Specialty Start Date End Date Fuentes Orellana MD PCP - General 11/28/16 Itz Iyer MD [address] [place] [id number] Consulting Physician Urology 05/31/18 Lupillo Davenport MD [address] [place] [address] Referring Physician Radiation Oncology 05/31/18 Lupillo Davenport MD [address] [place] [address] Referring Physician Radiation Oncology 05/31/18 Shawnee Mckinney MD [address] [facility] [address] [place] [address] Referring Physician Urology 06/03/18 Chicho Clayton MD [address] [facility] [address] [place], [place] [id number] Medical Oncologist/Hematologis t Medical Oncology 06/07/18 Newton Weeks MD [address] [facility] [address] [place] [address] Referring Physician Radiation Oncology 06/07/18 Maria Guadalupe Palacios, RN Registered Nurse 06/10/18 Lupillo Davenport MD [address] [place] [address] [place] [address] Referring Physician Radiation Oncology 06/16/18 Itz Iyer MD [address] [place] [address] Consulting Physician Urology 06/17/18 06/17/18 Itz Iyre MD [address] [place] [address] Consulting Physician Urology 06/18/18 06/18/18 Itz Iyer MD [address] [place] [address] Consulting Physician Urology 06/18/18 06/18/18 Itz Iyer MD [address] [place] [address] Consulting Physician Urology 06/22/18 06/22/18 Itz Iyer MD [address] [place] [address] Consulting Physician Urology 07/01/18 07/01/18 Itz Iyer MD [address] [place] [address] Consulting Physician Urology 07/06/18 07/06/18 Danis Meza NP [address] [facility] [address] [place] [address] Nurse Practitioner Urology 10/06/22 Antonette Owens NP [address] [facility] [address] [place] [address] Nurse Practitioner Cardiovascular Disease 10/06/22 Aniceto Foley MD [address] [place] [address] Surgeon Vascular Surgery 10/31/22 documented as of this encounter
--- OUTSIDE RECORDS SUMMARY | 2025-04-19 11:46 | XMS_ITS | Encounter Summary ---
Author Organization [facility] Address [address] [facility] [address] [place] [address] Care Team Providers Care Route Sales Specialist Name Role Phone Fuentes Orellana MD Primary Care Provider + [phone] Fuentes Orellana MD Primary Care Provider + [phone] Itz Iyer MD Unavailable [phone] Lupillo Davenport MD Unavailable [phone] Lupillo Davenport MD Unavailable [phone] Shawnee Mckinney MD Unavailable [phone] Chicho Clayton MD Unavailable Newton Weeks MD Unavailable [phone] Maria Guadalupe Palacios RN Unavailable Unava ilable Lupillo Davenport MD Unavailable [phone] Itz Iyer MD Unavailable [phone] Itz Iyer MD Unavailable [phone] Itz Iyer MD Unavailable [phone] Itz Iyer MD Unavailable [phone] Itz Iyer MD Unavailable [phone] tIz Iyer MD Unavailable [phone] BryDanis otto SHELL SIEVE OPERATOR Unavailable Roman Antonette NP Unavailable Aniceto Foley MD Unavailable Encounter Details Date Type Department Care Team (Late st Contact Info) Description 11/18/2016 Orders Only [facility] Provider, MD Katie [address] [place] [address] Social History Tobacco Use Types Packs/Day Years Used Date Smoking Tobacco: Never Assessed Sex and Gender Information Value Date Recorded Sex Assigned at Not on file 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 Gender Identity Not on file Sexual Orientation Choose not to disclose 2018 8:58 AM CDT documented as of this encounter Plan of Treatment Upcoming Encounters Date Type Department Care Team (Latest Contact Info) Description 04/24/2025 8:30 AM CDT Hospital Encounter [facility] Operating Room 1 [place] [phone] Aniceto Foley MD [address] [place] [address] PAD (peripheral artery disease) 04/24/2025 8:30 AM CDT Anesthesia Event [facility] Operating Room 1 [place] [phone] Swetha Barr, MARÍA [address] [facility] [address] [id number] [place], [place] [id number] 04/24/2025 8:30 AM CDT - 04/24/2025 11:45 AM CDT Surgery [facility] Operating Room 1 [place] [address] Aniceto Foley MD [address] [place] [address] ANGIOGRAM - HYBRID ROOM aorto iliac angiogram documented as of this encounter Procedures Procedure Name Priority Date/Time Associated Diagnosis Comments CARDIOLOGY REPORT 11/18/2016 documented in this encounter Results * CARDIOLOGY REPORT (11/18/2016) Anatomical Region Laterality Modality Other Narrative 11/18/2016 Ordered by an unspecified provider. us Historical Provider [facility] Final Result documented in this encounter Visit Diagnoses Not on filedocumented in this encounter Care Teams Route Sales Specialist Relationship Specialty Start Date End Date Fuentes Orellana MD PCP - General 11/28/16 Fuentes Orellana MD PCP - General 07/14/07 11/27/16 Itz Iyer MD [address] [place] [address] Consulting Physician Urology 05/31/18 Lupillo Davenport MD [address] [facility] [address] Referring Physician Radiation Oncology 05/31/18 Lupillo Davenport MD [address] [place] [address] Referring Physician Radiation Oncology 05/31/18 Shawnee Mckinney MD [address]60 [facility] [address] [place], [place] [id number] Referring Physician Urology 06/03/18 Chicho Clayton MD [address] [facility] [address] [place], [place] [id number] Medical Oncologist/Hematologis t Medical Oncology 06/07/18 [place] [address] [place] [address] [address] [place] [address] Referring Physician Radiation Oncology 06/07/18 Maria Guadalupe Palacios RN Registered Nurse 06/10/18 Lupillo Davenport MD [address] [place] [address] [place] [address] Referring Physician Radiation Oncology 06/16/18 Itz Iyer MD [address] [address] Consulting Physician Urology 06/17/18 06/17/18 Itz Iyer MD [address] [address] Consulting Physician Urology 06/18/18 06/18/18 Itz Iyer MD [address] [place] [address] Consulting Physician Urology 06/18/18 06/18/18 Itz Iyer MD [address] [place] [address] Consulting Physician Urology 06/22/18 06/22/18 Itz Iyer MD [address] [place] [address] Consulting Physician Urology 07/01/18 07/01/18 Itz Iyer MD [address] [place] [address] Consulting Physician Urology 07/06/18 07/06/18 Danis Meza NP [address] [facility] [address] [place] [address] Nurse Practitioner Urology 10/06/22 Antonette Owens NP [address] [place] [address] Nurse Practitioner Cardiovascular Disease 10/06/22 Aniceto Foley MD [address] [place] [address] Surgeon Vascular Surgery 10/31/22 documented as of this encounter
--- OUTSIDE RECORDS SUMMARY | 2025-04-19 11:46 | XMS_ITS | Encounter Summary ---
Author Organization [facility] Healthcare Address [address] [place] [address] Care Team Providers Care Rail Car Repairman Name Role Phone Fuentes Orellana MD Primary Care Provider + [phone] Itz Iyer MD Unavailable [phone] Shawnee Mckinney MD Unavailable [phone] Chicho Clayton MD Unavailable Maria Guadalupe Palacios RN Unavailable Unava ilable Lupillo Davenport MD Unavailable [phone] Danis Meza PHOTOGRAMMETRIC COMPILATION SPECIALIST Unavailable [phone] Antonette Owens NP Unavailable Aniceto Foley MD Unavailable [phone] Encounter Details Date Type Department Care Team (Late st Contact Info) Description 07/11/2024 Orders Only [facility] Health Information Management [address] [place] [address] Scanning, Provider Social History Tobacco Use Types [...] on file 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 Gender Identity Not on file Sexual Orientation Choose not to disclose 2018 8:58 AM CDT Occupation Industry Job 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 Date retired Not on file Not on file Not on file documented as of this encounter Plan of Treatment Upcoming Encounters Date Type Department Care Team (Latest Contact Info) Description 04/24/2025 8:30 AM CDT Hospital Encounter [facility] Operating Room 1 [place] [address] Aniceto Foley MD [address] [facility] [address] [place] [address] PAD (peripheral artery disease) 04/24/2025 8:30 AM CDT Anesthesia Event [facility] Operating Room 1 [place] [address] Swetha Barr, PHOTOGRAMMETRIC COMPILATION SPECIALIST [address] [facility] [address]00[address] [place] [address] 04/24/2025 8:30 AM CDT - 04/24/2025 11:45 AM CDT Surgery [facility] Operating Room [address] [place] [address] Aniceto Foley MD [address] [facility] [address] [place] [address] ANGIOGRAM - HYBRID ROOM aorto iliac angiogram documented as of this encounter Procedures Procedure Name Priority Date/Time Associated Diagnosis Comments SCAN - RADIOLOGY/IMAGING 07/10/2024 documented in this encounter Results * SCAN - RADIOLOGY/IMAGING (07/10/2024) Anatomical Region Laterality Modality Other us Provider Scanning Edited Result - Final documented in this encounter Visit Diagnoses Not on filedocumented in this encounter Care Teams Rail Car Repairman Relationship Specialty Start Date End Date Fuentes Orellana MD PCP - General 11/28/16 Itz Iyer MD [address] [place] [address] Consulting Physician Urology 05/31/18 Shawnee Mckinney MD [address] [facility] [address] [place] [address] Referring Physician Urology 06/03/18 Chicho [place] MD [address] [facility] [address] [place] [address] Medical Oncologist/Hematologis t Medical Oncology 06/07/18 Maria Guadalupe Palacios, RN Registered Nurse 06/10/18 Lupillo Davenport MD Referring Physician Radiation Oncology 06/16/18 Danis Meza NP [address] [facility] [address] DIV [place] [address] Nurse Practitioner Urology 10/06/22 Antonette Owens NP [address] [facility] [address] DIV [place] [address] Nurse Practitioner Cardiovascular Disease 10/06/22 Aniceto Foley MD [address] [place] [address] Surgeon Vascular Surgery 10/31/22 documented as of this encounter
[2025-04-19 12:10] LABS: Total Protein Urine Random 20 mg/dL; Ur Ttl Prot Creatinine Ratio 0.29 mg/mg (0-0.20)
[2025-04-19 12:29] LABS: Albumin Level 3.8 g/dL (3.5-5.1); Anion Gap 7 mmol/L (4-12); Blood Urea Nitrogen 36 mg/dL (9-20); Calcium 10.9 mg/dL (8.4-10.2); Carbon Dioxide 26 mmol/L (22-30); Chloride 105 mmol/L (98-107); Estimated Glomerular Filt Rate 47; Glucose 135 mg/dL (65-110); Potassium 4.6 mmol/L (3.4-5.0); Sodium 138 mmol/L (137-145)
[2025-04-19 12:41] LABS: Parathyroid Intact 50.6 pg/mL (14.5-75.2)
== END 2025-04-19 11:11 | disposition home or self-care (01) ==
LOC: ANHLAB 11:12
PROVIDERS: PCP Family Medicine; Visit Provider Internal Medicine Nephrology
DX: I12.9 Hypertensive chronic kidney disease with stage 1 through stage 4 chronic kidney disease, or unspecified chronic kidney disease (principal); N18.32 Chronic kidney disease, stage 3b
CPT/HCPCS: 36415; 80069; 82570; 83970; 84156; 85027

== ENCOUNTER 2025-04-22 12:53 | Emergency (ER) | payer MEDICARE, SELFPAY ==
--- OUTSIDE RECORDS SUMMARY | 2005-08-04 03:15 | XMS_ITS | Continuity of Care Document ---
Author Organization [facility] Address [address] [place] [address] [place] [address] Phone Care Team Providers Care See Wheeler Name Role Phone To Torres MD Unavailable Unavailable Advance Directives Directive Yes / No Effective Date File Name No Information Encounters Encounter Description Practice Location Reason(s) For Visit Diagnoses Date Provider Providers Copied on Encounter [facility], [id number] [place] [address] [address], [place], [place], [id number], tel:[phone] [facility] No Information Dec-0 5-200 5 Melissa Ariza. [address] [facility] [address], [place], [place], [address], [place]. tel:[phone] Family History Family Member Type Diagnosis Age At Onset No Information Payers Payer name Insurance type Covered constitution party ID Authoriza tion(s) Medicaid [facility] [id number] Social History Type Description Quantity Date Captured [...]
--- OUTSIDE RECORDS SUMMARY | 2005-08-04 03:15 | XMS_ITS | Continuity of Care Document ---
Author Organization [facility] Address [address] [place] [address] [place] [address] Phone Care Team Providers Care [employer] Truck Driver Name Role Phone To Torres MD Unavailable Unavailable Advance Directives Directive Yes / No Effective Date File Name No Information Encounters Encounter Description Practice Location Reason(s) For Visit Diagnoses Date Provider Providers Copied on Encounter [facility], [address] [place] [address] [address], [place], [place], [id number], tel:[phone] [facility] No Information Dec-0 5-200 5 Melissa Ariza. [address] [facility] [address], [place], [place], [address], [place]. tel:[phone] Family History Family Member Type Diagnosis Age At Onset No Information Payers Payer name Insurance type Covered green party ID Authoriza tion(s) Medicaid [facility] [id number] Social History Type Description Quantity Date Captured [...]
--- OUTSIDE RECORDS SUMMARY | 2025-04-22 12:54 | XMS_ITS | Encounter Summary ---
Author Organization [facility] Healthcare Address [address] [place] [address] Care Team Providers Care Chief Medical Physicist Name Role Phone Fuentes Orellana MD Primary Care Provider + [phone] Itz Iyer MD Unavailable [phone] Lupillo Davenport MD Unavailable [phone] Lupillo Davenport MD Unavailable [phone] Shawnee Mckinney MD Unavailable [phone] Chicho Clayton MD Unavailable Newton Weeks MD Unavailable [phone] Maria Guadalupe Palacios RN Unavailable Unava ilable Lupillo Davenport MD Unavailable [phone] Itz Iyer MD Unavailable [phone] Itz Iyer MD Unavailable +[phone] Itz Iyer MD Unavailable +[phone] Itz Iyer MD Unavailable +[phone] Itz Iyer MD Unavailable [phone] Itz Iyer MD Unavailable [phone] Danis Meza NP Unavailable [phone] Antonette Owens NP Unavailable Aniceto Foley MD Unavailable Encounter Details Date Type Department Care Team (Late st Contact Info) Description 04/12/2018 Orders Only [facility] Health Information Management [address] [place] [address] Scanning, Provider Social History Tobacco Use Types Packs/Day Years Used Date Smoking Tobacco: Never Smokeless Tobacco: Never Alcohol Use Standard Drinks/Week Comments Yes 0 (1 standard drink = 0.6 oz pur e alcohol) Sex and Gender Information Value Date Recorded Sex Assigned at Not on file 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 Gender Identity Not on file Sexual Orientation Choose not to disclose 2018 8:58 AM CDT documented as of this encounter Plan of Treatment Upcoming Encounters Date Type Department Care Team (Latest Contact Info) Description 04/24/2025 8:30 AM CDT Hospital Encounter [facility] Operating Room 1 [place] [address] Aniceto Foley MD [address] [place] [address] PAD (peripheral artery disease) 04/24/2025 8:30 AM CDT Anesthesia Event [facility] Operating Room 1 [place] [phone] Swetha Barr, MARÍA [address] [facility] [address] 05-09-025 [place] [address] 04/24/2025 8:30 AM CDT - 04/24/2025 11:45 AM CDT Surgery [facility] Operating Room 1 [place] [address] Aniceto Foley MD [address] [place] [address] ANGIOGRAM - HYBRID ROOM aorto iliac angiogram documented as of this encounter Procedures Procedure Name Priority Date/Time Associated Diagnosis Comments SCAN - RADIOLOGY/IMAGING 04/12/2018 documented in this encounter Results * SCAN - RADIOLOGY/IMAGING (04/12/2018) Anatomical Region Laterality Modality Other us Provider Scanning Edited Result - Final documented in this encounter Visit Diagnoses Not on filedocumented in this encounter Care Teams Chief Medical Physicist Relationship Specialty Start Date End Date Fuentes Orellana MD PCP - General 11/28/16 Itz Iyer MD [address] [place], [place] [id number] Consulting Physician Urology 05/31/18 Lupillo Davenport MD [address] [place] [address] Referring Physician Radiation Oncology 05/31/18 Lupillo Davenport MD [address] [place] [address] Referring Physician Radiation Oncology 05/31/18 Shawnee Mckinney MD [address] [facility] [address] [place] [address] Referring Physician Urology 06/03/18 Chicho Clayton MD [address] [facility] [address] [place] [address] Medical Oncologist/Hematologis t Medical Oncology 06/07/18 Newton Weeks MD [address] [facility] [address] [place] [address] Referring Physician Radiation Oncology 06/07/18 Maria Guadalupe Palacios, RN Registered Nurse 06/10/18 Lupillo Davenport MD [address] [place] [address] [place] [address] Referring Physician Radiation Oncology 06/16/18 Itz Iyer MD [address] [place] [address] Consulting Physician Urology 06/17/18 06/17/18 Itz Iyer MD [address] [place] [address] Consulting Physician Urology 06/18/18 06/18/18 Itz Iyer MD [address] [place] [address] Consulting Physician Urology 06/18/18 06/18/18 Itz Iyer MD [address] [place] [address] Consulting Physician Urology 06/22/18 06/22/18 Itz Iyer MD [address] [place] [address] Consulting Physician Urology 07/01/18 07/01/18 Itz Iyer MD [address] [place] [address] Consulting Physician Urology 07/06/18 07/06/18 Danis Meza, WATERSHED MANAGER [address] [facility] [address] [place] [address] Nurse Practitioner Urology 10/06/22 Antonette Owens NP [address] [facility] [address] [place] [address] Nurse Practitioner Cardiovascular Disease 10/06/22 Aniceto Foley MD [address] [place] [address] Surgeon Vascular Surgery 10/31/22 documented as of this encounter
--- OUTSIDE RECORDS SUMMARY | 2025-04-22 12:54 | XMS_ITS | Encounter Summary ---
Author Organization [facility] Address [address] [place] [address] Phone Care Team Providers Care Pathologist Name Role Phone Fuentes Orellana MD Primary Care Provider Brent Dickinson DO Unavailable [phone] Faviola Jiménez ADMISSIONS GATE ATTENDANT, MULTIMEDIA SERVICES MANAGER Unavailable Shawnee Mckinney MD Unavailable Chicho Clayton MD Unavailable Lai Lambert ADMISSIONS GATE ATTENDANT, MULTIMEDIA SERVICES MANAGER Unavailable [phone] Kami Meneses MD Unavailable [phone] Anette Bond MD Unavailable Kay Gordon ADMISSIONS GATE ATTENDANT, MULTIMEDIA SERVICES MANAGER Unavailable Kami Meneses MD Unavailable [phone] Kami Meneses MD Unavailable [phone] Kami Meneses MD Unavailable Encounter Details Date Type Department Care Team (Late st Contact Info) Description 12/16/2024 Telephone [facility] [address] [place] [address] Kami Meneses MD #[address] [facility] [address] [place] [address] Social History Tobacco Use Types Packs/Day Years [...] 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 Chicho Clayton at [facility] for prostate. * Telephone Encounter - Kami Meneses MD - 12/16/2024 11:45 AM CDT Can you ask the patient who follows him for his prostate cancer? documented in this encounter Plan of Treatment Upcoming Encounters Date Type Department Care Team (Late st Contact Info) Description 04/28/2025 11:15 AM CDT Office Visit [facility] [address] [place] [address] Kami Meneses MD #[address] [facility] [address] [place] [address] documented as of this encounter Visit Diagnoses Not on filedocumented in this encounter Care Teams Pathologist Relationship Specialty Start Date End Date Fuentes Orellana MD [address] [place] [place] [address] PCP - General Family Medicine 07/06/15 Brent Dickinson DO [address] [facility] [place] [address] Gastroenterology 06/27/16 Faviola Jiménez APRN, MULTIMEDIA SERVICES MANAGER [address] [place] [address] Nurse Practitioner Advanced Practice Nurse 07/22/16 Shawnee Mckinney MD [address] [facility] [address] [place] [address] Urologist Urology 06/07/19 Chicho Clayton MD 4921 [facility] [address] [place] [address] Oncology 06/13/19 Lai Lambert APRN, MULTIMEDIA SERVICES MANAGER [address] [place] [address] Nurse Practitioner Advanced Practice Nurse 02/10/23 Kami Meneses MD #[address] [address] Consulting Physician Urology 06/16/23 Anette Bond MD #2 [place] [address] Consulting Physician Gastroenterology 12/25/22 Kay Gordon APRN, MULTIMEDIA SERVICES MANAGER [address] [place] [address] Nurse Practitioner Advanced Practice Nurse 06/16/24 Kami Meneses MD #[address] [address] Consulting Physician Urology 08/19/24 Kami Meneses MD #[address] [address] Consulting Physician Urology 01/06/25 Kami Meneses MD #[address] [address] Consulting Physician Urology 03/08/25 documented as of this encounter
--- OUTSIDE RECORDS SUMMARY | 2025-04-22 12:54 | XMS_ITS | Encounter Summary ---
Author Organization [facility] Healthcare Address [address] [place] [address] Care Team Providers Care Rn Ccu Name Role Phone Fuentes Orellana MD Primary Care Provider + [phone] Itz Iyer MD Unavailable [phone] Shawnee Mckinney MD Unavailable [phone] Chicho Clayton MD Unavailable Maria Guadalupe Palacios RN Unavailable Unava ilable Lupillo Davenport MD Unavailable [phone] Danis Meza BENCH PATTERNMAKER METAL Unavailable [phone] Antonette Owens NP Unavailable Aniceto Foley MD Unavailable [phone] Encounter Details Date Type Department Care Team (Late st Contact Info) Description 07/11/2024 Orders Only [facility] Health Information Management [address] [place] [address] Scanning, Provider Social History Tobacco Use Types [...] on file 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 Gender Identity Not on file Sexual Orientation Choose not to disclose 2018 8:58 AM CDT Occupation Industry Job 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 Date retired Not on file Not on file Not on file documented as of this encounter Plan of Treatment Upcoming Encounters Date Type Department Care Team (Latest Contact Info) Description 04/24/2025 8:30 AM CDT Hospital Encounter [facility] Operating Room 1 [place] [address] Aniceto Foley MD [address] [facility] [address] [place] [address] PAD (peripheral artery disease) 04/24/2025 8:30 AM CDT Anesthesia Event [facility] Operating Room [address] [place] [address] Swetha Barr, BENCH PATTERNMAKER METAL [address] [facility] [address] [phone] [place] [address] 04/24/2025 8:30 AM CDT - 04/24/2025 11:45 AM CDT Surgery [facility] Operating Room [address] [place] [address] Aniceto Foley MD [address] [facility] [address] [place] [address] ANGIOGRAM - HYBRID ROOM aorto iliac angiogram documented as of this encounter Procedures Procedure Name Priority Date/Time Associated Diagnosis Comments SCAN - RADIOLOGY/IMAGING 07/10/2024 documented in this encounter Results * SCAN - RADIOLOGY/IMAGING (07/10/2024) Anatomical Region Laterality Modality Other us Provider Scanning Edited Result - Final documented in this encounter Visit Diagnoses Not on filedocumented in this encounter Care Teams Rn Ccu Relationship Specialty Start Date End Date Fuentes Orellana MD PCP - General 11/28/16 Itz Iyer MD [address] [place] [address] Consulting Physician Urology 05/31/18 Shawnee Mckinney MD [address] [facility] [address] [place] [address] Referring Physician Urology 06/03/18 Chicho Clayton MD [address] [facility] [address] [place] [address] Medical Oncologist/Hematologis t Medical Oncology 06/07/18 Maria Guadalupe Palacios, RN Registered Nurse 06/10/18 Lupillo Davenport MD Referring Physician Radiation Oncology 06/16/18 Danis Meza NP [address] [facility] [address] [place] [address] Nurse Practitioner Urology 10/06/22 Antonette Owens NP [address] [facility] [address] [place] [address] Nurse Practitioner Cardiovascular Disease 10/06/22 Aniceto Foley MD [address] [place] [address] Surgeon Vascular Surgery 10/31/22 documented as of this encounter
--- OUTSIDE RECORDS SUMMARY | 2025-04-22 12:54 | XMS_ITS | Encounter Summary ---
Author Organization [facility] Healthcare Address [address] [place] [address] Care Team Providers Care Bookkeeping Machine Mechanic Name Role Phone Fuentes Orellana MD Primary Care Provider + [phone] Itz Iyer MD Unavailable [phone] Shawnee Mckinney MD Unavailable [phone] Chicho Clayton MD Unavailable Maria Guadalupe Palacios RN Unavailable Unava ilable Lupillo Davenport MD Unavailable [phone] Danis Meza MELTER SUPERVISOR OXYGEN FURNACE Unavailable [phone] Antonette Owens NP Unavailable Aniceto Foley MD Unavailable [phone] Encounter Details Date Type Department Care Team (Late st Contact Info) Description 07/24/2024 Orders Only [facility] Health Information Management [address] [place] [address] Scanning, Provider Social History Tobacco Use Types [...] on file 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 Gender Identity Not on file Sexual Orientation Choose not to disclose 2018 8:58 AM CDT Occupation Industry Job 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 Date retired Not on file Not on file Not on file documented as of this encounter Plan of Treatment Upcoming Encounters Date Type Department Care Team (Latest Contact Info) Description 04/24/2025 8:30 AM CDT Hospital Encounter [facility] Operating Room 1 [place] [address] Aniceto Foley MD [address] [facility] 8[address] [place] [address] PAD (peripheral artery disease) 04/24/2025 8:30 AM CDT Anesthesia Event [facility] Operating Room 1 [place] [address] Swetha Barr, MELTER SUPERVISOR OXYGEN FURNACE [address] [facility] [address] [phone] [place] [address] 04/24/2025 8:30 AM CDT - 04/24/2025 11:45 AM CDT Surgery [facility] Operating Room [address] [place] [address] Aniceto Foley MD [address] [facility] 8[address]01-01 [place] [address] ANGIOGRAM - HYBRID ROOM aorto iliac angiogram documented as of this encounter Procedures Procedure Name Priority Date/Time Associated Diagnosis Comments SCAN - LABS 07/24/2024 documented in this encounter Results * SCAN - LABS (07/24/2024) us Provider Scanning Final Result documented in this encounter Visit Diagnoses Not on filedocumented in this encounter Care Teams Bookkeeping Machine Mechanic Relationship Specialty Start Date End Date Fuentes Orellana MD PCP - General 11/28/16 Itz Iyer MD [address] [place] [address] Consulting Physician Urology 05/31/18 Shawnee Mckinney MD [address]60 [facility] [address] [place] [address] Referring Physician Urology 06/03/18 Chicho Clayton MD [address] [facility] [address] [place] [address] Medical Oncologist/Hematologis t Medical Oncology 06/07/18 Maria Guadalupe Palacios, RN Registered Nurse 06/10/18 Lupillo Davenport MD Referring Physician Radiation Oncology 06/16/18 Danis Meza NP [address] [facility] [address] [place] [address] Nurse Practitioner Urology 10/06/22 Antonette Owens NP [address] [facility] [address] [place] [address] Nurse Practitioner Cardiovascular Disease 10/06/22 Aniceto Foley MD [address] [facility] 8[address]01 [place] [address] Surgeon Vascular Surgery 10/31/22 documented as of this encounter
--- OUTSIDE RECORDS SUMMARY | 2025-04-22 12:54 | XMS_ITS | Encounter Summary ---
Author Organization [facility] Healthcare Address [address] [place] [address] Care Team Providers Care Salesperson Art Objects Name Role Phone Fuentes Orellana MD Primary Care Provider + [phone] Itz Iyer MD Unavailable [phone] Lupillo Davenport MD Unavailable [phone] Lupillo Davenport MD Unavailable [phone] Shawnee Mckinney MD Unavailable [phone] Chicho Clayton MD Unavailable Newton Weeks MD Unavailable [phone] Maria Guadalupe Palacios RN Unavailable Unava ilable Lupillo Davenport MD Unavailable [phone] Itz Iyer MD Unavailable [phone] Itz Iyer MD Unavailable +[phone] Itz Iyer MD Unavailable +[phone] Itz Iyer MD Unavailable +[phone] Itz Iyer MD Unavailable [phone] Itz Iyer MD Unavailable [phone] Danis Meza NP Unavailable [phone] Antonette Owens NP Unavailable Aniceto Foley MD Unavailable [phone] Encounter Details Date Type Department Care Team (Late st Contact Info) Description 03/16/2018 Orders Only [facility] Health Information Management [address] [place] [address] Scanning, Provider Social History Tobacco Use Types Packs/Day Years Used Date Smoking Tobacco: Never Smokeless Tobacco: Never Alcohol Use Standard Drinks/Week Comments Yes 0 (1 standard drink = 0.6 oz pur e alcohol) Sex and Gender Information Value Date Recorded Sex Assigned at Not on file 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 Gender Identity Not on file Sexual Orientation Choose not to disclose 2018 8:58 AM CDT documented as of this encounter Plan of Treatment Upcoming Encounters Date Type Department Care Team (Latest Contact Info) Description 04/24/2025 8:30 AM CDT Hospital Encounter [facility] Operating Room 1 [place] [address] Aniceto Foley MD [address] [place] [address] PAD (peripheral artery disease) 04/24/2025 8:30 AM CDT Anesthesia Event [facility] Operating Room [address] [place] [address] Swetha Barr, MARÍA [address] [facility] [address] [phone] [place] [address] 04/24/2025 8:30 AM CDT - 04/24/2025 11:45 AM CDT Surgery [facility] Operating Room [address] [place] [address] Aniceto Foley MD [address] [place] [address] ANGIOGRAM - HYBRID ROOM aorto iliac angiogram documented as of this encounter Procedures Procedure Name Priority Date/Time Associated Diagnosis Comments SCAN - LABS 03/16/2018 documented in this encounter Results * SCAN - LABS (03/16/2018) us Provider Scanning Final Result documented in this encounter Visit Diagnoses Not on filedocumented in this encounter Care Teams Salesperson Art Objects Relationship Specialty Start Date End Date Fuentes Orellana MD PCP - General 11/28/16 Itz Iyer MD [address] [place] [id number] Consulting Physician Urology 05/31/18 Lupillo Davenport MD [address] [place] [address] Referring Physician Radiation Oncology 05/31/18 Lupillo Davenport MD [address] [place] [address] Referring Physician Radiation Oncology 05/31/18 Shawnee Mckinney MD 4960 [facility] [address] [place] [address] Referring Physician Urology 06/03/18 Chicho Clayton MD [address] [facility] [address] [place] [address] Medical Oncologist/Hematologis t Medical Oncology 06/07/18 Newton Weeks MD [address] [facility] [address] [place] [address] Referring Physician Radiation Oncology 06/07/18 Maria Guadalupe Palacios RN Registered Nurse 06/10/18 Lupillo Davenport MD [address] [place] [address] [place] [address] Referring Physician Radiation Oncology 06/16/18 Itz Iyer MD [address] [place] [address] Consulting Physician Urology 06/17/18 06/17/18 Itz Iyer MD [address] [place] [address] Consulting Physician Urology 06/18/18 06/18/18 Itz Iyer MD [address] [place] [address] Consulting Physician Urology 06/18/18 06/18/18 Itz Iyer MD [address] [place] [address] Consulting Physician Urology 06/22/18 06/22/18 Itz Iyer MD [address] [place] [address] Consulting Physician Urology 07/01/18 07/01/18 Itz Iyer MD [address] [address] Consulting Physician Urology 07/06/18 07/06/18 Danis Meza, MARÍA [address] [place] [address] Nurse Practitioner Urology 10/06/22 Antonette Owens NP [address] [facility] [address] [place] [address] Nurse Practitioner Cardiovascular Disease 10/06/22 Aniceto Foley MD [address] [place] [address] Surgeon Vascular Surgery 10/31/22 documented as of this encounter
--- OUTSIDE RECORDS SUMMARY | 2025-04-22 12:55 | XMS_ITS | Clinical Summary ---
Author Organization [facility] [address] Address [address] [place] [address] Care Team Providers Care Sales Office Coordinator Name Role Phone Fuentes Orellana MD Primary Care Provider Itz Iyer MD Unavailable Shawnee Mckinney MD Unavailable [phone] Chicho Clayton MD Unavailable Maria Guadalupe Palacios RN Unavailable Unava ilable Lupillo Davenport MD Unavailable [phone] Danis Meza POOL CLEANER Unavailable Antonette Owens NP Unavailable Aniceto Foley MD Unavailable [phone] Allergies Active Allergy Reactions Criticality Noted Date [...] anxiety 9 Active allopurinoL (ZYLOPRIM) 300 mg tabletIndicati ons:prevention of acute gout attack Take 1 tablet (300 mg total) by mouth every morning 1 Active Kerendia 10 mg tabletIndicati ons:chronic kidney disease associated with type 2 diabetes Take 1 tablet by mouth every morning 4 Active nitroglycerin (NITROSTAT) 0.3 mg SL tabletIndicati ons:acute episode of anginal pain Place 1 tablet (0.3 mg total) under the tongue every 5 (five) minutes as needed for chest pain 25 tablet 3 4 08/09/20 25 Active aspirin 81 mg enteric coated tabletIndicati ons:primary prevention of coronary heart disease Take 1 tablet (81 mg total) by mouth every morning Active chlorthalidone (HYGROTON) 25 mg tabletIndicati ons:hypertensi on Take 1 tablet (25 mg total) by mouth every morning Active telmisartan (MICARDIS) 80 mg tabletIndicati ons:hypertensi on Take 1 tablet (80 mg total) by mouth every morning Active amLODIPine (NORVASC) 5 mg tabletIndicati ons:hypertensi on Take 1 tablet (5 mg total) by mouth every morning Active pantoprazole DR (PROTONIX) 40 mg EC tabletIndicati ons:Treatment of Non-Bleeding Gastric Disorder Take 1 tablet (40 mg total) by mouth every morning Active linaGLIPtin (TRADJENTA) 5 mg tabletIndicati ons:type 2 diabetes mellitus Take 1 tablet (5 mg total) by mouth every morning Active glimepiride (AMARYL) 1 mg tabletIndicati ons:type 2 diabetes mellitus Take 1 tablet (1 mg total) by mouth 2 (two) times a day before breakfast and dinner 5 Active Gvoke HypoPen 2-Pack 1 mg/0.2 mL auto-injector 5 Active metoprolol tartrate (LOPRESSOR) 25 mg immediate release tabletIndicati ons:Coronary artery disease involving big sandy coronary artery of big sandy heart without angina pectoris TAKE 1 TABLET(25 MG) BY MOUTH TWICE DAILY 90 tablet 3 5 Active Additional Information Patient taking differently:25 mg oral 2 times daily,Indications: hypertension, Informant: Self, Reported on 04/03/2025 rosuvastatin (CRESTOR) 40 mg tablet TAKE 1 TABLET(40 MG) BY MOUTH DAILY 30 tablet 3 5 Active Additional Information Patient taking differently: 40 mgoralNightly, Indications: hyperlipidemia, Informant: Self, Reported on 04/03/2025 gabapentin (NEURONTIN) 100 mg capsuleIndicat ions:Diabetic Peripheral Neuropathy Take 1 capsule (100 mg total) by mouth 3 (three) times a day 5 Active albuterol HFA (PROVENTIL HFA,VENTOLIN HFA,PROAIR HFA) 90 mcg/actuation inhaler Inhale 1 puff every 6 (six) hours as needed for wheezing or shortness of breath 5 Active acetaminophen (TYLENOL) 325 mg tablet Take 2 tablets (650 mg total) by mouth every 6 (six) hours as needed for pain Active Brilinta 60 mg tabletIndicati ons:Thrombosis Prevention after PCI Take 1 tablet (60 mg total) by mouth 2 (two) times a day 180 tablet 3 5 Active Brilinta 60 mg tablet Take 1 tablet (60 mg total) by mouth 2 (two) times a day 180 tablet 2 5 04/12/20 25 Discontin ued(Reord er) Active Problems Problem Noted Date Diagnosed Date [...] (10/21/2022): Added automatically from request for surgery [id number] Assessment & Plan (10/30/2022 2:56 PM LANGUAGE PATH): - OR 3/2 for planned R CEA - OU status, Q2h NV/VS monitoring - Bedrest today, OOB/PT POD #1 - SBP goal 100-160, nicardipine for elevated BP - Continue aspirin and statin - Plan to stager home medications and resume overnight Atherosclerosis of big sandy ar teries of extremities with intermittent claudication, bilateral legs 06/03/2022 Melanoma 01/10/2021 Anxiety 01/10/2021 DM (diabetes mellitus) 01/10/2021 Assessment & Plan (10/30/2022 9:59 AM LANGUAGE PATH): - A1c 7.6% 10/2022 - SSI while inpatient - CC diet when eating Elevated left ventricular end-diastolic pressure (LVEDP) 11/15/2019 Encounter for surgical after care following surgery of circulatory system 05/20/2019 Prostate cancer 09/10/2018 Assessment & Plan (10/27/2018 9:53 AM LANGUAGE PATH): Follows with urology, has his PSA monitored it is increasing, but still WNL 1.4 Assessment & Plan (09/22/2018 11:35 AM LANGUAGE PATH): Has close follow up with his oncologist. His PSA was slightly elevated on last check. Hyperlipidemia 09/21/2017 Assessment & Plan (06/30/2018 9:38 AM CDT): His last lipid panel was within acceptable range; he will continue on a high intensity statin. Assessment & Plan (09/21/2017 11:34 AM LANGUAGE PATH): Continue Lipitor 40 mg daily. Essential hypertension 07/20/2017 Assessment & Plan (10/30/2022 2:57 PM LANGUAGE PATH): - Tight BP goals post-procedure - Continue home medications as indicated by BP goals as above, staggering overnight for gentle BP control Assessment & Plan (10/27/2018 9:54 AM LANGUAGE PATH): Hypertension is unchanged. Dietary sodium restriction. Blood pressure will be reassessed in 4 weeks. Assessment & Plan (09/22/2018 11:38 AM LANGUAGE PATH): Hypertension remains elevated. He is increasing his [...] today Assessment & Plan (09/21/2017 11:33 AM LANGUAGE PATH): Blood pressure is well controlled today. Last visit we added HCTZ 12.5 mg daily. Continue current medications Assessment & Plan (08/10/2017 11:26 AM LANGUAGE PATH): Blood pressure is not controlled. Add hydrochlorothiazide 12.5 mg p.o. daily. He is compliant with medications but always add salt to food which I advised him not to do that. Assessment & Plan (07/20/2017 9:19 AM LANGUAGE PATH): Blood pressure remains uncontrolled. We will order renal Doppler ultrasound to rule out renal artery stenosis given the fact that he has peripheral vascular disease and coronary artery disease. I will increase amlodipine from 5-10 mg p.o. daily. If that does not control the blood pressure we will add hydrochlorothiazide 12.5 mg p.o. Daily. Coronary artery disease invo lving big sandy coronary artery of big sandy heart without angina pectoris 07/20/2017 Assessment & Plan (10/30/2022 9:58 AM LANGUAGE PATH): - Continue home medications as able - Maintained on Brilinta as an outpatient; held 1 week prior to OR - Will discuss with surgery team when to safely resume post-procedure Assessment & Plan (10/27/2018 9:59 AM LANGUAGE PATH): Coronary artery disease is improving with lifestyle modifications. Continue current treatment regimen. Cardiac status will be reassessed in 3 months. No chest pain. Minimal SOB. Continue asa, statin, brilinta Assessment & Plan (09/22/2018 11:36 AM LANGUAGE PATH): Coronary artery disease is unchanged. Regular aerobic [...] BB. Assessment & Plan (09/21/2017 11:33 AM LANGUAGE PATH): Continue aspirin, Brilinta, Toprol XL and atorvastatin. Assessment & Plan (08/10/2017 11:27 AM LANGUAGE PATH): Continue Brilinta and aspirin. Asymptomatic. Assessment & Plan (07/20/2017 9:19 AM LANGUAGE PATH): Continue aspirin, Brilinta, Lipitor , metoprolol PVD (peripheral vascular disease) 07/20/2017 Assessment & Plan (10/27/2018 9:21 AM LANGUAGE PATH): S/P bilateral ALVA angioplasty; right EIA angioplasty/stent 11/21/14. S/P aortoiliac angioplasty/stent 05/28/09. Continues on asa, statin and brilinta Assessment & Plan (09/21/2017 11:34 AM LANGUAGE PATH): He follows up with vascular surgery at [facility] Assessment & Plan (08/10/2017 11:27 AM LANGUAGE PATH): Renal ultrasound suggest more than 60% stenosis in the right renal artery and infrarenal stenosis 50-70%. He follows up with Dr. Foley from vascular surgery at [facility] Assessment & Plan (07/20/2017 9:20 AM LANGUAGE PATH): Patient will follow up with Dr. Foley from vascular surgery. He does have some claudication when he walks. Intrinsic urethral sphincter deficiency 06/08/20 15 Resolved Problems Problem Noted Date Diagnosed Date Resolved Date Dizzinesses 10/27/2018 02/09/2019 Assessment & Plan (10/27/2018 10:17 AM LANGUAGE PATH): Persistent dizziness. Has stopped caffeine intake. Has [...] implant or graft 6 02/09/2019 Atherosclerosis of big sandy artery of extremity 04/15/20 16 02/09/2019 Assessment & Plan (09/22/2018 11:26 AM LANGUAGE PATH): 80% circumflex s/p RICHARD. Moderate 30 % LAD with bridging Impotence of organic origin 09/18/2015 02/09/2019 Urinary tract infection 01/18/201501/29 Incontinence 01/18/2015 02/09/2019 Stricture, urethra 07/31/2011 9 Overview (12/10/2017): Description: Dilation 06/09/11 Nocturia 11/28/2010 02/09/2019 Hypertension 05/16/2009 02/09/2019 Assessment & Plan (10/27/2018 10:11 AM LANGUAGE PATH): Hypertension is {improving/stable/worsenin}. {plan; hypertension for POC:[id number]} Blood pressure will be reassessed {plan; follow-up 2 weeks/4weeks/3months:[id number]}. Increase amolodipine to 10 mg Continue all [...] Encounters Date Type Department Care Team Description 04/21/2025 Telephone [facility] Medicine Vascular Surgery [address] [facility] Medical Office Building [address] [place] [phone] Aniceto Foley MD 04/05/2025 Telephone [facility] Cardiology [address] [place] [address] Kay Ward NP 03/28/2025 11:00 AM CDT Office Visit [facility] Medicine Oncology [address] [place] [address] Floor 5 [place] [address] Chicho Clayton MD Prostate cancer (HCC) (Primary Dx) 03/28/2025 10:00 AM CDT Lab [facility] Medicine Oncology Lab [facility] Floor 5 [place] [address] Prostate cancer (HCC) 03/28/2025 9:[address] [facility] - Lab Collection [facility] Floor 5 [place] [address] Prostate cancer (HCC) 03/24/2025 [facility] [address] [facility] Advanced [facility] 8th [place] [address] Aniceto Foley MD Atherosclerosis of big sandy arteries of extremities with intermittent claudication, right leg (Primary Dx) 03/17/2025 12:15 PM CDT Pre-Admission Testing [facility] Pre Anesthesia Testing [facility] [place] [address] Preoperative testing (Primary Dx) 03/16/2025 11:59 PM CDT Anesthesia Event [facility] Operating Room [address] [place] [phone] Carrie Silva PA 03/08/2025 10:15 AM CDT [facility] [address] [facility] 8th [place] [address] [place] [address] Aniceto Foley MD PVD (peripheral vascular disease) (Primary Dx); Atherosclerosis of big sandy arteries of extremities with intermittent claudication, bilateral legs 03/08/2025 9:30 AM CDT Ancillary Procedure [facility] Medicine Vascular Lab at the [facility] Advanced Medicine [address] [facility] 8th [place] [address] Atherosclerosis of big sandy arteries of extremities with intermittent claudication, bilateral legs 03/08/2025 7:49 AM CDT - 03/08/2025 11:59 PM CDT Hospital Encounter [facility] [address] [place] [address] PVD (peripheral vascular disease) Discharge Disposition: Discharge to home or self care 02/27/2025 Telephone [facility] Medical Group Cardiology [address] [place] [address] Kay Ward NP 02/07/2025 Telephone [facility] Medical Group Cardiology [address] [place] [address] Kay Ward NP from Last [...] INTRAOCULAR LENS IMPLANT Right ANGIO SELECTIVE CAROTID BI TRI OPERATOR RIGHT 10/15/2022 Right MELANOMA RESECTION 12/17/2014 [...] = 0.6 oz pu re alcohol) [facility] Jun Groupities Answer Date Recorded In the past 12 months has [employer], [employer], or water [employer] threatened to shut off services in your [...] 11/11/2024 How often do you attend chur or episcopalian services? More than 4 times per year 11/11/2024 Do you belong to any clubs o r organizations such as holiness groups, unions, fraternal or athletic groups, or [...] were you homeless or living in a fci (including now)? No 11/11/2024 Personal Safety Answer Date Recorded Have you ever been in or are you currently in a harmful physical or emotional relationship or is someone making you feel afraid or unsafe? Denies 03/17/2025 Sex and Gender Information Value Date Recorded Sex Assigned at Not on file Legal Sex Male 12:32 AM LANGUAGE PATH Gender Identity Not on file Sexual Orientation [...] Description 04/24/2025 8:30 AM CDT Hospital Encounter [facility] Operating Room 1 [place] [address] Aniceto Foley MD [address] [facility] [address] [place] [address] PAD (peripheral artery disease) 04/24/2025 8:30 AM CDT Anesthesia Event [facility] Operating Room 1 [place] [address] Swetha Barr, POOL CLEANER [address] [facility] [phone] [place] [address] 04/24/2025 8:30 AM CDT - 04/24/2025 11:45 AM CDT Surgery [facility] Operating Room 1 [place] [address] Aniceto Foley MD [address] [facility] [address] [place] [address] ANGIOGRAM - HYBRID ROOM aorto iliac angiogram [...] Liriano RN Medical Devices Implanted Type Area Marketing Analyst Device Identifier Shelf Expiration Date Model / [...] and 61 to 70 cm pressure-regulating balloon. Stir Vascu-Guard 8x.8cm Peripheral Patch Vascular Bovine Pericardium Vg-[id number] - [id number] Implanted:Qty: 1 on 10/30/2022 by Aniceto Foley MD at [facility] Right: Carotid Stir [id number] 07/09/2023 [id number]-[id number] / / [id number] [employer] Sandra Ams 800 Kit Accessory Sterile Disposable Latex Free Urinary [id number] - [id number] Implanted:Qty: 1 on 11/09/2024 by Kami Meneses MD at [facility] N/A: Urethra [employer] Sandra [id number] 03/09/2029 [id number] / / [id number] [employer] Sandra Cuff Urethral Ams 800 Inhibizone 3.5cm [id number] - [id number] Implanted:Qty: 1 on 11/09/2024 by Kami Meneses MD at [facility] N/A: Urethra [employer] Sandra [id number] 02/22/2026 [id number] / / [id number] [employer] Sandra Ams 800 Pressure Balloon Sphincter 61-70cu Cm Implant Urological [id number] - [id number] Implanted:Qty: 1 on 11/09/2024 by Kami Meenses MD at [facility] N/A: Abdomen [employer] Sandra [id number] 03/20/2029 [id number] / / [id number] [employer] Sandra Ams 800 Control Pump Sphincter Implant Urological Inhibizone [id number] - [id number] Implanted:Qty: 1 on 11/09/2024 by Kami Meneses MD at [facility] N/A: Scrotum [employer] Sandra [id number] 02/15/2026 [id number] / / [id number] Procedures Procedure Name Priority Date/Time Associated Diagnosis [...] Routine) 03/08/2025 9:29 AM CDT Atherosclerosis of big sandy arteries of extremities with intermittent claudication, bilateral legs CTA ABDOMINAL AORTA AND BILATERAL ILIOFEMORAL RUNOFF Schedule Routine, Read Routine (OP Routine) 03/08/2025 8:53 AM CDT PVD (peripheral vascular disease) LIPID PANEL Routine 03/22/2024 10:23 AM CDT Coronary artery disease involving big sandy coronary artery of big sandy heart without angina pectoris from Last 3 Months or Most Recently Relevant to Health Maintenance Results * Differential, auto (03/28/2025 9:50 AM CDT) Neutrophil abs 4.37 1.50 - 6.50 K/cumm Comment:Testing performed by : [facility], [address] [place] [address] Lymphocyte abs 1.46 0.80 - 3.30 K/cumm CERNER [facility] Comment:Testing performed by : [facility], [address] [place], [place] [phone] Monocyte abs 0.50 0.20 - 0.80 K/cumm [facility] Comment:Testing performed by : [facility], [address] [place], [place] [id number] Eosinophil abs 0.15 0.00 - 0.50 K/cumm [facility] Comment:Testing performed by : [facility], [address] [place], [place] [id number] Basophil abs 0.04 0.00 - 0.10 K/cumm [facility] Comment:Testing performed by : [facility], [address] [place] [address] Neutrophil pct 67.0 % [facility] Comment: Interpretive Data Percent cell count reference ranges are not reported, since discordance with absolute values may lead to misinterpretation of CBC data. Current Interpretive Data was last revised on 2017. Testing performed by: [facility], [address] [place] [phone] Lymphocyte pct 22.4 % [facility] Comment: Interpretive Data Percent cell count reference ranges are not reported, since discordance with absolute values may lead to misinterpretation of CBC data. Current Interpretive Data was last revised on 2017. Testing performed by: [facility], [address] [place] [phone] Monocyte pct 7.7 % [facility] Comment: Interpretive Data Percent cell count reference ranges are not reported, since discordance with absolute values may lead to misinterpretation of CBC data. Current Interpretive Data was last revised on 2017. Testing performed by: [facility], [address] [place] [phone] Eosinophil pct 2.3 % CERNER [facility] Comment: Interpretive Data Percent cell count reference ranges are not reported, since discordance with absolute values may lead to misinterpretation of CBC data. Current Interpretive Data was last revised on 2017. Testing performed by: [facility], [address] [place] [address] Basophil pct 0.6 % DARIN BRYSON Comment: Interpretive Data Percent cell count reference ranges are not reported, since discordance with absolute values may lead to misinterpretation of CBC data. Current Interpretive Data was last revised on 2017. Testing performed by: [facility], [address] [place] [address] Blood 03/28/2025 9:50 AM CDT 03/28/2025 9:52 AM CDT us Chicho Clayton MD LAB BLOOD ORDERABLES Final Resul t DARIN [facility] [address] [facility] Department [place] [address] * (ABNORMAL) CBC with auto differential (03/28/2025 9:50 AM CDT) WBC 6.53 3.80 - 9.90 K/cumm Comment:Testing performed by : [facility], [address] [place] [address] Hgb 11.1(L) 13.0 - 17.5 g/dL DARIN BRYSON Comment:Testing performed by : [facility], [address] [place] [address] Hct 32.5(L) 38.9 - 50.3 % DARIN BRYSON Comment:Testing performed by : [facility], [address] [place] [address] Plt 162 150 - 400 K/cumm DARIN BRYSON Comment:Testing performed by : [facility], [address] [place] [address] MPV 8.3 6.8 - 10.4 fL DARIN BRYSON Comment:Testing performed by : [facility], [address] [place] [address] RBC 3.50(L) 4.30 - 5.80 M/cumm DARIN [facility] Comment:Testing performed by : [facility], [address] [place] [address] MCV 92.8 81.3 - 96.4 fL DARIN [facility] Comment:Testing performed by : [facility], [address] [place] [address] MCH 31.6 27.1 - 33.3 pg DARIN [facility] Comment:Testing performed by : [facility], [address] [place] [address] MCHC 34.0 32.3 - 35.7 g/dL DARIN [facility] Comment:Testing performed by : [facility], [address] [place] [address] RDW CV 16.1(H) 11.1 - 14.9 % DARIN [facility] Comment:Testing performed by : [facility], [address] [place] [address] NRBC abs 0.00 0.00 - 0.01 K/cumm DARIN [facility] Comment:Testing performed by : [facility], [address] [place] [address] Blood 03/28/2025 9:50 AM CDT 03/28/2025 9:52 AM CDT us Chicho Clayton MD LAB BLOOD ORDERABLES Final Resul t [facility] Department of Laboratories [place], [place] [id number] * (ABNORMAL) eGFR (03/28/2025 9:50 AM CDT) [...] ORDERABLES Final Resul t Performing Organization Address [facility] de Phone Number [facility] Department [place] [address] * (ABNORMAL) PSA diagnostic (03/28/2025 9:50 AM [...] ORDERABLES Final Resul t Performing Organization Address [facility] de Phone Number [facility] Department [place] [address] * Lactate dehydrogenase (LD) (03/28/2025 9:50 AM CDT) Lactate dehydrogenase (LDH) 118 100 - 250 Units/L Blood 03/28/2025 9:50 AM CDT 03/28/2025 9:53 AM CDT us Chicho Clayton MD LAB BLOOD ORDERABLES Final Resul t [facility] Department [place] [address] * (ABNORMAL) Comprehensive metabolic panel (03/28/2025 9:50 AM CDT) Pathologist [facility] Sodium 141 135 - 145 mmol/L Potassium, pl 4.8 3.3 - 4.9 mmol/L [facility] Chloride 109 97 - 110 mmol/L [facility] CO2 26 22 - 32 mmol/L [facility] Anion gap 6 2 - 15 mmol/L [facility] BUN 35(H) 6 - 25 mg/dL [facility] Creatinine 1.53(H) 0.80 - 1.30 mg/dL [facility] Glucose 163 70 - 199 mg/dL [facility] Comment: Interpretive Data Fasting glucose >/= [...] 2022. Calcium 10.5(H) 8.5 - 10.3 mg/dL [facility] Bilirubin, total 0.3 0.1 - 1.2 mg/dL [facility] Protein, pl 6.7 6.5 - 8.5 g/dL [facility] Albumin 3.7 3.5 - 5.0 g/dL [facility] Alk phos 75 40 - 130 Units/L [facility] ALT 19 7 - 55 Units/L [facility] AST 18 10 - 50 Units/L [facility] Blood 03/28/2025 9:50 AM CDT 03/28/2025 9:53 AM CDT us Chicho Clayton MD LAB BLOOD ORDERABLES Final Resul t [facility] Department [place] [address] * (ABNORMAL) eGFR (03/17/2025 1:05 PM CDT) [...] NP LAB BLOOD ORDERABLES Fi nal Result [facility] [address] Department [place] [address] * Differential, auto (03/17/2025 1:05 PM CDT) Neutrophil abs 5.18 1.50 - 6.50 K/cumm Imm gran abs 0.10 0.00 - 0.10 K/cumm [facility] Lymphocyte abs 1.75 0.80 - 3.30 K/cumm [facility] Monocyte abs 0.65 0.20 - 0.80 K/cumm [facility] Eosinophil abs 0.14 0.00 - 0.50 K/cumm [facility] Basophil abs 0.05 0.00 - 0.10 K/cumm [facility] Neutrophil pct 65.8 % [facility] Comment: Interpretive Data Percent cell count reference ranges are not reported, since discordance with absolute values may lead to misinterpretation of CBC data. Current Interpretive Data was last revised on 2017. Imm gran pct 1.3 % [facility] Comment: Interpretive Data Percent cell count reference ranges are not reported, since discordance with absolute values may lead to misinterpretation of CBC data. Current Interpretive Data was last revised on 2017. Lymphocyte pct 22.2 % [facility] Comment: Interpretive Data Percent cell count reference ranges are not reported, since discordance with absolute values may lead to misinterpretation of CBC data. Current Interpretive Data was last revised on 2017. Monocyte pct 8.3 % [facility] Comment: Interpretive Data Percent cell count reference ranges are not reported, since discordance with absolute values may lead to misinterpretation of CBC data. Current Interpretive Data was last revised on 2017. Eosinophil pct 1.8 % [facility] Comment: Interpretive Data Percent cell count reference ranges are not reported, since discordance with absolute values may lead to misinterpretation of CBC data. Current Interpretive Data was last revised on 2017. Basophil pct 0.6 % [facility] Comment: Interpretive Data Percent cell count reference ranges are not reported, since discordance with absolute values may lead to misinterpretation of CBC data. Current Interpretive Data was last revised on 2017. Blood 03/17/2025 1:05 PM CDT 03/17/2025 1:05 PM CDT Sagrario Fernandez POOL CLEANER LAB BLOOD ORDERABLES Fi nal Result Performing Organization Address [facility] Co de Phone Number [facility] [address] [address] * (ABNORMAL) CBC with auto differential (03/17/2025 1:05 PM CDT) [facility] WBC 7.87 3.80 - 9.90 K/cumm Hgb 11.5(L) 13.0 - 17.5 g/dL [facility] Hct 35.4(L) 38.9 - 50.3 % [facility] Plt 174 150 - 400 K/cumm [facility] MPV 10.8 9.1 - 12.3 fL [facility] RBC 3.72(L) 4.30 - 5.80 M/cumm [facility] MCV 95.2 81.3 - 96.4 fL [facility] MCH 30.9 27.1 - 33.3 pg [facility] MCHC 32.5 32.3 - 35.7 g/dL [facility] RDW CV 14.6 11.1 - 14.9 % [facility] RDW SD 50.9(H) 35.7 - 48.1 fL [facility] NRBC abs 0.00 0.00 - 0.01 K/cumm [facility] Blood 03/17/2025 1:05 PM CDT 03/17/2025 1:05 PM CDT Sagrario eFrnandez POOL CLEANER LAB BLOOD ORDERABLES Fi nal Result Performing Organization Address City/[facility]/ZIP Co de Phone Number [facility] [address] [employer] [place], [place] [id number] * aPTT (03/17/2025 1:05 PM CDT) [facility] aPTT 34 28 - 38 sec Comment: Interpretive Data Heparin therapeutic range: 66.0 - 100.0 seconds. Range based on correlation with therapeutic heparin activity range of 0.3 - 0.7 Units/mL. Current interpretive data was last revised on 2023. Blood 03/17/2025 1:05 PM CDT 03/17/2025 1:05 PM CDT Sagrario Fernandez NP LAB BLOOD ORDERABLES Fi nal Result Performing Organization Address [facility] de Phone Number [facility] [address] [facility] [place] [address] * Protime-INR (03/17/2025 1:05 PM CDT) PT 10.7 9.7 - 13.0 sec INR 0.99 0.90 - 1.20 [facility] Comment: Interpretive data Oral anticoagulant therapeutic ranges: Venous thromboembolism prophylaxis or treatment: 2.0-3.0 CARDIOLOGY Standard range: 2.0-3.0 High-intensity range: 2.5-3.5 Refer to indication-specific guidelines for appropriate target ranges for prosthetic heart valve replacement. Current interpretive data was last revised on 2019. Blood 03/17/2025 1:05 PM CDT 03/17/2025 1:05 PM CDT Sagrario Fernandez NP LAB BLOOD ORDERABLES nal Result Performing Organization Address [facility] de Phone Number [facility] [address] [facility] [place] [address] * (ABNORMAL) Hemoglobin A1c (03/17/2025 1:05 PM CDT) Hgb A1C 6.7(H) 4.0 - 5.6 % Estimated Average Glucose 146 mg/dL [facility] Comment: The ADA recommends reporting an estimated Average Glucose (eAG) with all Hemoglobin A1c results using the equation derived from a study of 507 normal and diabetic adults. Minority populations were underrepresented and children were not included. (Diabetes Care 31:4883-3006, 2008). The eAG is not equivalent to a fasting glucose. Blood 03/17/2025 1:05 PM CDT 03/17/2025 1:05 PM CDT Sagrario Fernandez POOL CLEANER LAB BLOOD ORDERABLES Fi nal Result [facility] [address] [place] [address] * (ABNORMAL) Basic metabolic panel (03/17/2025 1:05 PM CDT) [facility] Sodium 139 135 - 145 mmol/L Potassium, pl 4.3 3.3 - 4.9 mmol/L [facility] Chloride 105 97 - 110 mmol/L [facility] CO2 23 22 - 32 mmol/L [facility] Anion gap 11 2 - 15 mmol/L [facility] BUN 35(H) 6 - 25 mg/dL [facility] Creatinine 1.31(H) 0.80 - 1.30 mg/dL [facility] Glucose 76 70 - 199 mg/dL [facility] Comment: Interpretive Data Fasting glucose [...] 2022. Calcium 10.9(H) 8.5 - 10.3 mg/dL [facility] Blood 03/17/2025 1:05 PM CDT 03/17/2025 1:05 PM CDT Sagrario Fernandez POOL CLEANER LAB BLOOD ORDERABLES Fi nal Result Performing Organization Address City/[facility]/ZIP Co de Phone Number [facility] [address] Department [place] [address] * Type and screen (03/17/2025 1:04 PM CDT) ABO Rh A Negative Ashlee, indirect Negative [facility] Blood 03/17/2025 1:04 PM CDT 03/17/2025 1:25 PM CDT Narrative [facility] - 03/17/2025 2:11 PM CDT Is this test being ordered in advance for a procedure?->Yes Expected date of procedure:->04/03/25 Has the patient been transfused in the past 3 months?->No Sagrario Fernandez NP LAB BLOOD BANK TEST ORD ERABLES Final Result Performing Organization Address [facility] Co de Phone Number [facility] [address] Department [place] [address] * ECG 12 lead (03/17/2025 12:53 PM CDT) 03/17/2025 12:5 3 PM CDT Narrative [facility] - 03/19/2025 4:45 PM CDT Vent Rate: 60 bpm RR Interval: 997 msec MO Interval: 219 msec QRS Duration: 145 msec QT Interval: 381 msec QTC Interval: 381 msec P-R-T [place]: 46 - -19 - 37 degrees IMPRESSION: SINUS RHYTHM WITH FIRST DEGREE AV BLOCK INTRAVENTRICULAR CONDUCTION DELAY ABNORMAL ECG Electronically Signed By: Casimiro Boggs [facility] Card Sagrario Fernandez NP ECG ORDERABLES Final R esult Performing Organization Address City/[facility]/ZIP Co de Phone Number [facility] [employer] [facility] * US Arterial Doppler Lower Extremity Bilateral (03/08/2025 9:29 AM CDT) Anatomical Region Laterality Modality Vascular Bilateral Ultrasound 03/08/2025 9:06 AM CDT Narrative 03/08/2025 9:07 PM CDT [facility] - Department of Vascular Surgery, Vascular Laboratory [address] [place] [address] Lower Extremity Arterial Doppler Report Patient Name: RIVERA FREEMAN : 1950 Study Date: 03/08/2025 9:06:00 AM Gender: M Tech: Jay Hutson RVT Location: [facility] Ref Provider: ANICETO FOLEY Quality: Adequate Order Provider: ANICETO FOLEY PROCEDURES: Arterial Report: Bilateral lower extremity arterial Doppler exam at rest. INDICATIONS: I70.213 Atherosclerosis of big sandy arteries of extremities with intermittent claudication, bilateral legs. MEASUREMENTS: Right Value Units Left Value Units Rt Brachial Pressure 149 mmHg Lt Brachial Pressure 147 mmHg Rt FIBER OPTIC ASSEMBLER Pressure 62 mmHg Lt FIBER OPTIC ASSEMBLER Pressure 121 mmHg Rt DPA Pressure 50 mmHg Lt DPA Pressure 97 mmHg Rt 1st Digit Pressure 31 mmHg Lt 1st Digit Pressure 62 mmHg Rt PT TORREY Resting 0.42 Lt PT TORREY Resting 0.81 Rt AT TORREY Resting 0.34 Lt AT TORREY Resting 0.65 Rt Digit/Arm Index 0.21 Lt Digit/Arm Index 0.42 Right Value Units Left Value Units FINDINGS: Performing Field Case Manager: Jay Hutson RVT. Right Common Femoral Artery [...] Procedure Note Aniceto Foley MD - 03/08/2025 [facility] - Department of Vascular Surgery,Vascular Laboratory [address] [place] [address] Lower Extremity Arterial Doppler Report Patient Name: RIVERA FREEMAN : 1950 Study Date: 03/08/2025 9:06:00 AM Gender: M Tech: Jay Hutson RVT Location: [facility] Provider: ANICETO FOLEY Quality: Adequate Order Provider: ANICETO FOLEY PROCEDURES: Arterial Report: Bilateral lower extremity arterial Doppler exam at rest. INDICATIONS: I70.213 Atherosclerosis of big sandy arteries of extremities withintermittent claudication, bilateral legs. MEASUREMENTS: Right Value Units Left Value Units Rt Brachial Pressure 149 mmHg Lt Brachial Pressure 147 mmHg Rt FIBER OPTIC ASSEMBLER Pressure 62 mmHg Lt FIBER OPTIC ASSEMBLER Pressure 121 mmHg Rt DPA Pressure 50 mmHg Lt DPA Pressure 97 mmHg Rt 1st Digit Pressure 31 mmHg Lt 1st Digit Pressure 62 mmHg Rt PT TORREY Resting 0.42 Lt PT TORREY Resting 0.81 Rt AT TORREY Resting 0.34 Lt AT TORREY Resting 0.65 Rt Digit/Arm Index 0.21 Lt Digit/Arm Index 0.42 Right Value Units Left Value Units FINDINGS: Performing Field Case Manager: Jay Hutson RVT. Right Common Femoral Artery [...] above. Electronically Signed By: Aniceto Foley MD [facility] 03/08/2025 8:21:05 PM CDT us Aniceto Foely MD IM US PROCEDURES Final Resul t * CTA [...] by: Leon Bradshaw M.D. Aniceto Foley MD IM CT PROCEDURES Final Resul t * (ABNORMAL) [...] revised on 2018. Triglycerides 115 <=149 mg/dL [facility] Comment: Interpretive Data Ages < or [...] revised on 2018. HDL 37(L) >=40 mg/dL [facility] Comment: Interpretive Data Ages < or [...] on 2018. LDL, calculated 67 <=129 mg/dL [facility] Comment: Interpretive Data Ages < or [...] revised on 2018. Non-HDL Cholesterol 90 mg/[facility] Comment: Interpretive Data Ages < or [...] last revised on 2018. Chol/HDL ratio 3 [facility] Blood 03/22/2024 10:2 3 AM CDT 03/22/2024 10:52 AM CDT us Antonette Rater POOL CLEANER LAB BLOOD ORDERABLES Final Resul t [facility] Department [place] [address] from Last 3 Months or Most Recently Relevant to Health Maintenance Additional Health Concerns Active Problems Noted Date Diagnosed Date Autogenerated Problem 03/28/2025 Insurance [facility] MEDICARE MEDICARE [facility] MEDICARE [facility] [address] [place] [phone] MEDICARE [facility] Advance Directives For more information, please contact: [phone] * Full Code (Latest Code Status on File) Date Activated Date Inactivated Comments 11/09/2024 2:36 PM 11/12/2024 6:36 PM * Full Code Date Activated Date Inactivated Comments 10/30/2022 5:29 PM 10/31/2022 7:15 PM * Full Code Date Activated Date Inactivated Comments 08/16/2019 9:46 AM 08/16/2019 5:30 PM Care Teams Sales Office Coordinator Relationship Specialty Start Date End Date Fuentes Orellana MD PCP - General 11/28/16 Itz Iyer MD [address] [facility] [address] [place] [address] Consulting Physician Urology 05/31/18 Shawnee Mckinney MD [address] [facility] [address] [place] [address] Referring Physician Urology 06/03/18 Chicho Clayton MD [address] [facility] [address] [place] [address] Medical Oncologist/Hematologis t Medical Oncology 06/07/18 Maria Guadalupe Palacios, RN Registered Nurse 06/10/18 Lupillo Davenport MD Referring Physician Radiation Oncology 06/16/18 Danis Meza NP [address] [facility] [address] [place] [address] Nurse Practitioner Urology 10/06/22 Antonette Owens NP [address] [place] [address] Nurse Practitioner Cardiovascular Disease 10/06/22 Aniceto Foley MD [address] [place] [address] Surgeon Vascular Surgery 10/31/22
--- OUTSIDE RECORDS SUMMARY | 2025-04-22 12:55 | XMS_ITS | Encounter Summary ---
Author Organization [facility] Address [address] [facility] [address] [place] [address] Phone Care Team Providers Care Process Inspector Name Role Phone Fuentes Orellana MD Primary Care Provider Itz Iyer MD Unavailable Shawnee Mckinney MD Unavailable [phone] Chicho Clayton MD Unavailable Maria Guadalupe Palacios RN Unavailable Unava ilable Lupillo Davenport MD Unavailable Danis Meza SENIOR PROJECT CONTROLS SPECIALIST Unavailable Antonette Owens NP Unavailable Aniceto Foley MD Unavailable Encounter Details Date Type Department Care Team (Late st Contact Info) Description 04/21/2025 Telephone [facility] Medicine Vascular Surgery [address] [facility] Medical Office Building [address] [place] [address] Aniceto Foley MD [address] [facility] [address] [place] [address] Social History Tobacco Use Types Packs/Day Years Used Date Smoking Tobacco: Former Cigarettes 1.5 19 1 966 - 1985 Passive Smoke Exposure: Past Smokeless Tobacco: Never Alcohol Use Standard Drinks/Week Comments Yes 12 (1 standard drink = 0.6 oz pu re alcohol) [facility] Utilities Answer Date Recorded In the past [...] often do you attend chur ch or baptist services? More than 4 times per year [...] any time in the past 12 m ont, were you homeless or living in a residential (including now)? No 11/11/2024 Personal Safety Answer Date Recorded Have you ever been in or are you currently in a harmful physical or emotional relationship or is someone making you feel afraid or unsafe? 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 Freeman called the office to confirm details for Thursday. All details given and medications reviewed for what to not take. He has been holding his Brilinta. documented in this encounter Plan of Treatment Upcoming Encounters Date Type Department Care Team (Latest Contact Info) Description 04/24/2025 8:30 AM CDT Hospital Encounter [facility] Operating Room [address] [place] [address] Aniceto Foley MD [address] [place] [address] PAD (peripheral artery disease) 04/24/2025 8:30 AM CDT Anesthesia Event [facility] Operating Room [address] [place] [id number] Swetha Barr NP [address] [facility] [id number] [place], [place] [id number] 04/24/2025 8:30 AM CDT - 04/24/2025 11:45 AM CDT Surgery [facility] Operating Room [address] [place] [address] Aniceto Foley MD [address] [place] [address] ANGIOGRAM - HYBRID ROOM aorto iliac angiogram documented as of this encounter Goals Goal Patient Goal Type Associated Problems Recent Progress Patient-Stated? Author Autogenerat ed Goal Care Plan Autogenerated Problem Michelle Meyer RN documented as of this encounter Visit Diagnoses Not on filedocumented in this encounter Additional Health Concerns Active Problems Noted Date Diagnosed Date Autogenerated Problem 03/28/2025 documented as of this encounter Care Teams Process Inspector Relationship Specialty Start Date End Date Fuentes Orellana MD PCP - General 11/28/16 Itz Iyer MD [address] [facility] [address] [place] [address] Consulting Physician Urology 05/31/18 Shawnee Mckinney MD [address] [facility] [address] [place] [address] Referring Physician Urology 06/03/18 Chicho Clayton MD [address] [facility] [address] [place] [address] Medical Oncologist/Hematologis t Medical Oncology 06/07/18 Maria Guadalupe Palacios RN Registered Nurse 06/10/18 Lupillo Davenport MD Referring Physician Radiation Oncology 06/16/18 Danis Meza NP [address] [facility] [address] [place] [address] Nurse Practitioner Urology 10/06/22 Antonette Owens NP [address] [facility] [address] [place] [address] Nurse Practitioner Cardiovascular Disease 10/06/22 Aniceto Foley MD [address] [place] [address] Surgeon Vascular Surgery 10/31/22 documented as of this encounter
--- OUTSIDE RECORDS SUMMARY | 2025-04-22 12:55 | XMS_ITS | Encounter Summary ---
Author Organization [facility] Address [address] [place] [address] Phone Care Team Providers Care Staff Genetic Counselor Name Role Phone Fuentes Orellana MD Primary Care Provider Brent Dickinson DO Unavailable [phone] Faviola Jiménez QA AUTOMATION ARCHITECT, RUBY SOFTWARE DEVELOPER Unavailable Shawnee Mckinney MD Unavailable Chicho Clayton MD Unavailable Lai Lambert QA AUTOMATION ARCHITECT, RUBY SOFTWARE DEVELOPER Unavailable [phone] Kami Meneses MD Unavailable [phone] Anette Bond MD Unavailable [phone] Kay Gordon QA AUTOMATION ARCHITECT, RUBY SOFTWARE DEVELOPER Unavailable Kami Meneses MD Unavailable [phone] Kami Meneses MD Unavailable [phone] Kami Meneses MD Unavailable [phone] Reason for Visit * Reason Comments Medication Refill Encounter Details Date Type Department Care Team (Late st Contact Info) Description 11/12/2022 Refill [facility] - Gastroenterology [facility] [address] [place] [address] Ingrid Mccloud Ashley, PAC [address] [place] [address] Medication Refill Social History Tobacco Use Types [...] Job 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 Date 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 on file Not on file Not [...] Description 04/28/2025 11:15 AM CDT Office Visit [facility] #[address] [place] [address] Kami Meneses MD [address] [address] documented as of this encounter Visit Diagnoses Not on filedocumented in this encounter Care Teams Staff Genetic Counselor Relationship Specialty Start Date End Date Fuentes Orellana MD [address] [place] [address] PCP - General Family Medicine 07/06/15 Brent Dickinson DO [address] [place] [address] Gastroenterology 06/27/16 Faviola Jiménez APRN, RUBY SOFTWARE DEVELOPER [address] [place] [address] Nurse Practitioner Advanced Practice Nurse 07/22/16 Shawnee Mckinney MD 4960 [facility] [address] [place] [address] Urologist Urology 06/07/19 Chicho Clayton MD 4921 [facility] 7 [place] [address] Oncology 06/13/19 Lai Lambert APRN, RUBY SOFTWARE DEVELOPER [address] [place] [address] Nurse Practitioner Advanced Practice Nurse 02/10/23 Kami [facility]es MD [facility] [address] [address] Consulting Physician Urology 06/16/23 Anette Bond MD #[address] [facility] [address] Consulting Physician Gastroenterology 12/25/22 Kay Gordon APRN, RUBY SOFTWARE DEVELOPER #2 [facility] [place] [address] Nurse Practitioner Advanced Practice Nurse 06/16/24 Kami Meneses MD #2 [facility]EN [facility], [facility] [address] [place] [address] Consulting Physician Urology 08/19/24 Kami Meneses MD [address] [place] [address] Consulting Physician Urology 01/06/25 Kami Meneses MD [address] [place] [address] Consulting Physician Urology 03/08/25 documented as of this encounter
--- OUTSIDE RECORDS SUMMARY | 2025-04-22 12:55 | XMS_ITS | Encounter Summary ---
Author Organization [facility] Address [address] [place] [address] Phone Care Team Providers Care Braider Setter Name Role Phone Fuentes Orellana MD Primary Care Provider Brent Dickinson DO Unavailable [phone] Faviola Jiménez CLINICAL TECHNICIAN, CHIEF TELEPHONE OPERATOR Unavailable Shawnee Mckinney MD Unavailable Chicho Clayton MD Unavailable Lai Lambert CLINICAL TECHNICIAN, CHIEF TELEPHONE OPERATOR Unavailable [phone] Kami Meneses MD Unavailable [phone] Anette Bond MD Unavailable [phone] Kay Gordon CLINICAL TECHNICIAN, CHIEF TELEPHONE OPERATOR Unavailable Kami Meneses MD Unavailable [phone] Kami Meneses MD Unavailable [phone] Kami Meneses MD Unavailable [phone] Reason for Visit * Reason Comments Medication Refill Encounter Details Date Type Department Care Team (Late st Contact Info) Description 10/15/2021 Refill [facility] - Gastroenterology [facility] [address] [place] [address] Ingrid Mccloud Ashley, PAC [address] [place] [address] Medication Refill Social History Tobacco Use Types [...] Job 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 UALIZATION CONSULTANT documented in this encounter Plan of Treatment Upcoming Encounters Date Type Department Care Team (Late st Contact Info) Description 04/28/2025 11:15 AM CDT Office Visit [facility] UR[facility]Y [address] [place] [address] Kami Meneses MD #[address] [address] documented as of this encounter Visit Diagnoses Not on filedocumented in this encounter Care Teams Braider Setter Relationship Specialty Start Date End Date Fuentes Orellana MD [address] [place] [place] [address] PCP - General Family Medicine 07/06/15 Brent Dickinson DO [address] [place] [address] Gastroenterology 06/27/16 Faviola Jiménez APRN, CHIEF TELEPHONE OPERATOR [address] [facility] [place] [address] Nurse Practitioner Advanced Practice Nurse 07/22/16 Shawnee Mckinney MD 4960 [facility] [address] [place] [address] Urologist Urology 06/07/19 Chicho Clayton MD 4921 [facility] 7 [place] [address] Oncology 06/13/19 Lai Lambert APRN, CHIEF TELEPHONE OPERATOR [address] [place] [address] Nurse Practitioner Advanced Practice Nurse 02/10/23 Kami Meneses MD #[address] [address] Consulting Physician Urology 06/16/23 nAette Bond MD #2 [place] [address] Consulting Physician Gastroenterology 12/25/22 Kay Gordon APRN, CHIEF TELEPHONE OPERATOR [address] [place] [address] Nurse Practitioner Advanced Practice Nurse 06/16/24 Kami Meneses MD #[address] [facility], [facility] [address] [place] [address] Consulting Physician Urology 08/19/24 Kami Meneses MD #[address] [facility] [facility], [facility] [address] [place] [address] Consulting Physician Urology 01/06/25 Kami Meneses MD #[address] [facility], [facility] [address] [place] [address] Consulting Physician Urology 03/08/25 documented as of this encounter
--- OUTSIDE RECORDS SUMMARY | 2025-04-22 12:55 | XMS_ITS | Encounter Summary ---
Author Organization [facility] Address [address] [place] [address] Phone Care Team Providers Care Hand Bootmaker Name Role Phone Fuentes Orellana MD Primary Care Provider [phone] Brent Dickinson DO Unavailable [phone] Faviola Jiménez HEEL BURNISHER, WRECKING MECHANIC Unavailable Shawnee Mckinney MD Unavailable Chicho Clayton MD Unavailable Lai Lambert HEEL BURNISHER, WRECKING MECHANIC Unavailable [phone] Kami Meneses MD Unavailable [phone] Anette Bond MD Unavailable [phone] Kay Gordon HEEL BURNISHER, WRECKING MECHANIC Unavailable Kami Meneses MD Unavailable [phone] Kami Meneses MD Unavailable [phone] Kami Meneses MD Unavailable [phone] Encounter Details Date Type Department Care Team (Late st Contact Info) Description 08/22/2024 Telephone [facility] [address] [place] [address] Kami Meneses MD #[address], [address] [place] [address] Social History Tobacco Use Types Packs/Day Years [...] Job 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 OSAL SPECIALIST * Telephone Encounter - Elidia Dill - 08/29/2024 8:20 AM CST Please see Dr. Otto message. OSAL SPECIALIST * Telephone Encounter - Kami Meneses MD [...] sphincter. This needs to be done at [facility] by me. He will need a urine culture 14 days prior to surgery. Hibiclens shower the night before morning of surgery, vancomycin and gentamicin for antibiotics OSAL SPECIALIST OSAL SPECIALIST documented in this encounter Plan of Treatment Upcoming Encounters Date Type Department Care Team (Late st Contact Info) Description 04/28/2025 11:15 AM CDT Office Visit [facility] [address] [place] [address] Kami Meneses MD #[address] [address] documented as of this encounter Visit Diagnoses Not on filedocumented in this encounter Care Teams Hand Bootmaker Relationship Specialty Start Date End Date Fuentes Orellana MD [address] [facility] [place] [address] PCP - General Family Medicine 07/06/15 Brent Dickinson DO [address] [place] [address] Gastroenterology 06/27/16 Faviola Jiménez, HEEL BURNISHER, WRECKING MECHANIC [address] [place] [address] Nurse Practitioner Advanced Practice Nurse 07/22/16 Shawnee Mckinney MD [address] [facility] [address] [place] [address] Urologist Urology 06/07/19 Chicho Clayton MD [address] [facility] 7 [place] [address] Oncology 06/13/19 Lai Lambert HEEL BURNISHER, WRECKING MECHANIC [address]2 [place] [address] Nurse Practitioner Advanced Practice Nurse 02/10/23 Kami Meneses MD #2 [facility], [facility] [address] [place] [address] Consulting Physician Urology 06/16/23 Anette Bond MD #2 [place] [address] Consulting Physician Gastroenterology 12/25/22 Kay Gordon APRN, WRECKING MECHANIC #2 [place] [address] Nurse Practitioner Advanced Practice Nurse 06/16/24 Kami Meneses MD [address]2 [facility], [address] [place] [address] Consulting Physician Urology 08/19/24 Kami Meneses MD [address]2 [facility], [facility] [address] [place] [address] Consulting Physician Urology 01/06/25 Kami Meneses MD [address], [facility] [address] [place] [address] Consulting Physician Urology 03/08/25 documented as of this encounter
--- OUTSIDE RECORDS SUMMARY | 2025-04-22 12:55 | XMS_ITS ---
Author Organization [facility] [address] Address [address] [place] [address] Care Team Providers Care Technical Education Teacher Name Role Phone Fuentes Orellana MD Primary Care Provider [phone] Itz Iyer MD Unavailable [phone] Shawnee Mckinney MD Unavailable [phone] Chicho Clayton MD Unavailable Maria Guadalupe Palacios RN Unavailable Unava ilable Lupillo Davenport MD Unavailable [phone] Danis Meza DOOR SERVICEMAN Unavailable Antonette Owens NP Unavailable Aniceto Foley [...] (10/21/2022): Added automatically from request for surgery [id number] Assessment & Plan (10/30/2022 2:56 PM SAND SCREENER OPERATOR): - OR 3/2 for planned R CEA - OU status, Q2h NV/VS monitoring - Bedrest today, OOB/PT POD #1 - SBP goal 100-160, nicardipine for elevated BP - Continue aspirin and statin - Plan to stager home medications and resume overnight Atherosclerosis of [place] ar teries of extremities with intermittent claudication, bilateral legs 06/03/2022 Melanoma 01/10/2021 Anxiety 01/10/2021 DM (diabetes mellitus) 01/10/2021 Assessment & Plan (10/30/2022 9:59 AM SAND SCREENER OPERATOR): - A1c 7.6% 10/2022 - SSI while inpatient - CC diet when eating Elevated left ventricular end-diastolic pressure (LVEDP) 11/15/2019 Encounter for surgical after care following surgery of circulatory system 05/20/2019 Prostate cancer 09/10/2018 Assessment & Plan (10/27/2018 9:53 AM SAND SCREENER OPERATOR): Follows with urology, has his PSA monitored it is increasing, but still WNL 1.4 Assessment & Plan (09/22/2018 11:35 AM SAND SCREENER OPERATOR): Has close follow up with his oncologist. His PSA was slightly elevated on last check. Hyperlipidemia 09/21/2017 Assessment & Plan (06/30/2018 9:38 AM CDT): His last lipid panel was within acceptable range; he will continue on a high intensity statin. Assessment & Plan (09/21/2017 11:34 AM SAND SCREENER OPERATOR): Continue Lipitor 40 mg daily. Essential hypertension 07/20/2017 Assessment & Plan (10/30/2022 2:57 PM SAND SCREENER OPERATOR): - Tight BP goals post-procedure - Continue home medications as indicated by BP goals as above, staggering overnight for gentle BP control Assessment & Plan (10/27/2018 9:54 AM SAND SCREENER OPERATOR): Hypertension is unchanged. Dietary sodium restriction. Blood pressure will be reassessed in 4 weeks. Assessment & Plan (09/22/2018 11:38 AM SAND SCREENER OPERATOR): Hypertension remains elevated. He is increasing [...] today Assessment & Plan (09/21/2017 11:33 AM SAND SCREENER OPERATOR): Blood pressure is well controlled today. Last visit we added HCTZ 12.5 mg daily. Continue current medications Assessment & Plan (08/10/2017 11:26 AM SAND SCREENER OPERATOR): Blood pressure is not controlled. Add hydrochlorothiazide 12.5 mg p.o. daily. He is compliant with medications but always add salt to food which I advised him not to do that. Assessment & Plan (07/20/2017 9:19 AM SAND SCREENER OPERATOR): Blood pressure remains uncontrolled. We will order renal Doppler ultrasound to rule out renal artery stenosis given the fact that he has peripheral vascular disease and coronary artery disease. I will increase amlodipine from 5-10 mg p.o. daily. If that does not control the blood pressure we will add hydrochlorothiazide 12.5 mg p.o. Daily. Coronary artery disease invo lving [place] coronary artery of [place] heart without angina pectoris 07/20/2017 Assessment & Plan (10/30/2022 9:58 AM SAND SCREENER OPERATOR): - Continue home medications as able - Maintained on Brilinta as an outpatient; held 1 week prior to OR - Will discuss with surgery team when to safely resume post-procedure Assessment & Plan (10/27/2018 9:59 AM SAND SCREENER OPERATOR): Coronary artery disease is improving with lifestyle modifications. Continue current treatment regimen. Cardiac status will be reassessed in 3 months. No chest pain. Minimal SOB. Continue asa, statin, brilinta Assessment & Plan (09/22/2018 11:36 AM SAND SCREENER OPERATOR): Coronary artery disease is unchanged. Regular [...] BB. Assessment & Plan (09/21/2017 11:33 AM SAND SCREENER OPERATOR): Continue aspirin, Brilinta, Toprol XL and atorvastatin. Assessment & Plan (08/10/2017 11:27 AM SAND SCREENER OPERATOR): Continue Brilinta and aspirin. Asymptomatic. Assessment & Plan (07/20/2017 9:19 AM SAND SCREENER OPERATOR): Continue aspirin, Brilinta, Lipitor , metoprolol PVD (peripheral vascular disease) 07/20/2017 Assessment & Plan (10/27/2018 9:21 AM SAND SCREENER OPERATOR): S/P bilateral ALVA angioplasty; right EIA angioplasty/stent 11/21/14. S/P aortoiliac angioplasty/stent 05/28/09. Continues on asa, statin and brilinta Assessment & Plan (09/21/2017 11:34 AM SAND SCREENER OPERATOR): He follows up with vascular surgery at [facility] Assessment & Plan (08/10/2017 11:27 AM SAND SCREENER OPERATOR): Renal ultrasound suggest more than 60% stenosis in the right renal artery and infrarenal stenosis 50-70%. He follows up with Dr. Foley from vascular surgery at [facility] Assessment & Plan (07/20/2017 9:20 AM SAND SCREENER OPERATOR): Patient will follow up with Dr. [...] 02/09/2019 Assessment & Plan (10/27/2018 10:17 AM SAND SCREENER OPERATOR): Persistent dizziness. Has stopped caffeine intake. [...] device, implant or graft 02/09/2019 Atherosclerosis of [place] artery of extremity 04/15/20 16 02/09/2019 Assessment & Plan (09/22/2018 11:26 AM SAND SCREENER OPERATOR): 80% circumflex s/p RICHARD. Moderate 30 % LAD with bridging Impotence of organic origin 09/18/2015 02/09/2019 Urinary tract infection 01/18/201501/29 Incontinence 01/18/2015 02/09/2019 Stricture, urethra 07/31/2011 9 Overview (12/10/2017): Description: Dilation 06/09/11 Nocturia 11/28/2010 02/09/2019 Hypertension 05/16/2009 02/09/2019 Assessment & Plan (10/27/2018 10:11 AM SAND SCREENER OPERATOR): Hypertension is {improving/stable/worsenin}. {plan; hypertension for POC:[id number]} Blood pressure will be reassessed {plan; follow-up 2 weeks/4weeks/3months:[id number]}. Increase amolodipine to 10 mg Continue all [...]
--- OUTSIDE RECORDS SUMMARY | 2025-04-22 12:55 | XMS_ITS | Clinical Summary ---
Author Organization [facility] Address [address] [place] [address] Phone Care Team Providers Care Investment Banker Name Role Phone Fuentes Orellana MD Primary Care Provider [phone] Allergies No known active allergies Medications pantoprazole [...] 2025 06/15/2018 Medical Devices Implanted Type Area Coupon And Bond Collection Clerk Device Identifier Shelf Expiration Date Model / Serial / Lot Ams 800 Urinary Control System(Penile Implant) Description:MRI conditional for 3T or less -danisha 01/04/19 Insurance MEDICARE PART A AND B [facility] [id number] Care Teams Investment Banker Relationship Specialty Start Date End Date Fuentes Orellana MD [address] [place] [address] PCP - General Family Practice 01/04/19
--- OUTSIDE RECORDS SUMMARY | 2025-04-22 12:55 | XMS_ITS | Encounter Summary ---
Author Organization [facility] Address [address] [place] [address] Phone Care Team Providers Care Metal Furniture Assembly Supervisor Name Role Phone Fuentes Orellana MD Primary Care Provider [phone] Itz Iyer MD Unavailable [phone] Lupillo Davenport MD Unavailable [phone] Lupillo Davenport MD Unavailable [phone] Shawnee Mckinney MD Unavailable [phone] Chicho Clayton MD Unavailable Newton Weeks MD Unavailable Maria Guadalupe Palacios RN Unavailable Unava ilable Lupillo Davenport MD Unavailable [phone] Itz Iyer MD Unavailable [phone] Itz Iyer MD Unavailable [phone] Itz Iyer MD Unavailable [phone] Itz Iyer MD Unavailable [phone] Itz Iyer MD Unavailable [phone] Itz Iyer MD Unavailable [phone] ComDanis otto MARKETING TECHNOLOGIST Unavailable Antonette Owens MARKETING TECHNOLOGIST Unavailable Aniceto Foley MD Unavailable Encounter Details [...] on file Legal Sex Male 12:32 AM TAPPET ADJUSTER Gender Identity Not on file Sexual Orientation Choose not to disclose 2018 8:58 AM CDT documented as of this encounter Plan of Treatment Upcoming Encounters Date Type Department Care Team (Latest Contact Info) Description 04/24/2025 8:30 AM CDT Hospital Encounter [facility] Operating Room [address] [place] [phone] Aniceto Foley MD [address] [place] [address] PAD (peripheral artery disease) 04/24/2025 8:30 AM CDT Anesthesia Event [facility] Operating Room [address] [place] [id number] Swetha Barr, MARÍA [address] [facility] [address] [place], [place] [id number] 04/24/2025 8:30 AM CDT - 04/24/2025 11:45 AM CDT Surgery [facility] Operating Room [address] [place] [phone] Aniceto Foley MD [address] [place] [address] ANGIOGRAM - HYBRID ROOM aorto iliac angiogram [...] filedocumented in this encounter Care Teams Metal Furniture Assembly Supervisor Relationship Specialty Start Date End Date Fuentes Orellana MD PCP - General 11/28/16 Itz Iyer MD [address] [place] [id number] Consulting Physician Urology 05/31/18 Lupillo Davenport MD [address] [place] [address] Referring Physician Radiation Oncology 05/31/18 Lupillo Davenport MD [address] [place] [address] Referring Physician Radiation Oncology 05/31/18 Shawnee Mckinney MD [address]60 [facility] [address] [place] [address] Referring Physician Urology 06/03/18 Chicho Clayton MD [address] [facility] [address] [place], [place] [id number] Medical Oncologist/Hematologis t Medical Oncology 06/07/18 Newton Weeks MD [address] [facility] [address] [place] [address] Referring Physician Radiation Oncology 06/07/18 Maria Guadalupe Palacios, RN Registered Nurse 06/10/18 Lupillo Davenport MD [address] [place] [address] [place] [address] Referring Physician Radiation Oncology 06/16/18 Itz Iyer MD [address] [place] [address] Consulting Physician Urology 06/17/18 06/17/18 Itz Iyer MD [address] [place] [address] Consulting Physician Urology 06/18/18 06/18/18 Itz Iyer MD [address] [place] [address] Consulting Physician Urology 06/18/18 06/18/18 Itz Iyer MD [address] [place] [address] Consulting Physician Urology 06/22/18 06/22/18 Itz Iyer MD [address] [place] [address] Consulting Physician Urology 07/01/18 07/01/18 Itz Iyer MD [address] [place] [address] Consulting Physician Urology 07/06/18 07/06/18 Danis Meza NP [address] [facility] [address] [place] [address] Nurse Practitioner Urology 10/06/22 Antonette Owens NP [address] [facility] [address] [place] [address] Nurse Practitioner Cardiovascular Disease 10/06/22 Aniceto Foley MD [address] [place] [address] Surgeon Vascular Surgery 10/31/22 documented as of this encounter
--- OUTSIDE RECORDS SUMMARY | 2025-04-22 12:55 | XMS_ITS | Encounter Summary ---
Author Organization [facility] Address [address] [place] [address] Phone Care Team Providers Care Anesthesiologist Physician Name Role Phone Fuentes Orellana MD Primary Care Provider [phone] Itz Iyer MD Unavailable [phone] Shawnee Mckinney MD Unavailable [phone] Chicho Clayton MD Unavailable Maria Guadalupe Palacios RN Unavailable Unava ilable Lupillo Davenport MD Unavailable [phone] Danis Meza TIMBER MILL WORKER Unavailable [phone] Antonette Owens NP Unavailable Aniceto Foley MD Unavailable [phone] Encounter Details Date Type Department Care [...] on file Legal Sex Male 12:32 AM ADJUNCT PHILOSOPHY FACULTY Gender Identity Not on file Sexual Orientation Choose not to disclose 2018 8:58 AM CDT documented as of this encounter Plan of Treatment Upcoming Encounters Date Type Department Care Team (Latest Contact Info) Description 04/24/2025 8:30 AM CDT Hospital Encounter [facility] Operating Room [address] [place] [address] Aniceto Foley MD [address] [facility] [address] [place] [address] PAD (peripheral artery disease) 04/24/2025 8:30 AM CDT Anesthesia Event [facility] Operating Room [address] [place] [address] Swetha Barr, TIMBER MILL WORKER [address] [facility] [id number] [place], [place] [id number] 04/24/2025 8:30 AM CDT - 04/24/2025 11:45 AM CDT Surgery [facility] Operating Room [address] [place] [address] Aniceto Foley MD [address] [facility] [address] [place] [address] ANGIOGRAM - HYBRID ROOM aorto iliac angiogram documented as of this encounter Procedures Procedure Name Priority Date/Time Associated Diagnosis Comments SCAN - RADIOLOGY/IMAGING 01/18/2019 documented in this encounter Results * SCAN - RADIOLOGY/IMAGING (01/18/2019) Anatomical Region Laterality Modality Other us Provider Scanning Final Result documented in this encounter Visit Diagnoses Not on filedocumented in this encounter Care Teams Anesthesiologist Physician Relationship Specialty Start Date End Date Fuentes Orellana MD PCP - General 11/28/16 Itz Iyer MD [address] [id number] Consulting Physician Urology 05/31/18 Shawnee Mckinney MD [address] [place] [address] Referring Physician Urology 06/03/18 Chicho Clayton MD [address] [facility] [address] [place] [address] Medical Oncologist/Hematologis t Medical Oncology 06/07/18 Maria Guadalupe Palacios, RN Registered Nurse 06/10/18 Lupillo Davenport MD Referring Physician Radiation Oncology 06/16/18 Danis Meza NP [address] [facility] [address] [place] [address] Nurse Practitioner Urology 10/06/22 Antonette Owens NP [address] [facility] [address] [place] [address] Nurse Practitioner Cardiovascular Disease 10/06/22 Aniceto Foley MD [address] [place] [address] Surgeon Vascular Surgery 10/31/22 documented as of this encounter
--- OUTSIDE RECORDS SUMMARY | 2025-04-22 12:55 | XMS_ITS | Clinical Summary ---
Author Organization [facility] Address [address] [place] [address] Care Team Providers Care Fire Supervisor Name Role Phone Fuentes Orellana MD Primary Care Provider [phone] Allergies No known active allergies Medications amLODIPine [...] age to complete this topic Insurance MEDICARE [facility] Care Teams Fire Supervisor Relationship Specialty Start Date End Date Fuentes Orellana MD [address] [place] [id number] PCP - General FAMILY PRACTICE 11/29/22
--- OUTSIDE RECORDS SUMMARY | 2025-04-22 12:55 | XMS_ITS | Clinical Summary ---
Author Organization [facility] Address [address], [facility] [address] [place] [address] Phone Care Team Providers Care Deputy Prosecuting Attorney Name Role Phone Fuentes Orellana MD Primary Care Provider Brent Dickinson DO Unavailable [phone] Faviola Jiménez HIGH SCHOOL BIOLOGY TEACHER, GLASS SCULLION Unavailable Shawnee Mckinney MD Unavailable Chicho Clayton MD Unavailable Lai Lambert HIGH SCHOOL BIOLOGY TEACHER, GLASS SCULLION Unavailable [phone] Kami Meneses MD Unavailable [phone] Anette Bond MD Unavailable [phone] Kay Gordon APRN, GLASS SCULLION Unavailable Kami Meneses MD Unavailable Kami Meneses MD Unavailable [phone] Kami Meneses MD Unavailable [phone] Allergies No known active allergies Medications [...] PHYSICIAN GROUP UROLOGY #[address] [place] [address] Kami Meneses MD Pain 03/10/2025 2:15 PM CDT Office Visit [facility] [address] [place] [address] Kami Meneses MD Stress incontinence (female) (male) (Primary Dx); Prostate cancer (HCC) Discharge Disposition: Discharged to home or Selfcare 03/10/2025 Travel 01/20/2025 10:00 AM CDT Office Visit [facility] [address] [place] [address] Kami Meneses MD UTI symptoms (Primary Dx); [...] Job 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 A well lubricated 16 Vietnamese flexible cystoscope was introduced transurethrally. Findings: Urethra: No evidence of erosion, good coaptation noted The patient tolerated the procedure well. Specimen sent: None Plan: See progress note Kami Gleason MD [place] - SURGERY Final Result * POCT UA [...] Relevant to Health Maintenance Insurance DR [address] [place] [id number] MEDICARE [facility] Care Teams Deputy Prosecuting Attorney Relationship Specialty Start Date End Date Fuentes Orellana MD [address] [address] PCP - General Family Medicine 07/06/15 Brent Dickinson DO [address] [address] Gastroenterology 06/27/16 Faviola Jiménez APRN, GLASS SCULLION [address] [facility] [place] [place] [address] Nurse Practitioner Advanced Practice Nurse 07/22/16 Shawnee Mckinney MD [address] [facility] [address] [place] [address] Urologist Urology 06/07/19 Chicho Clayton MD 4921 [facility] 7 [place] [address] Oncology 06/13/19 Lai Lambert APRN, GLASS SCULLION [address] [place] [address] Nurse Practitioner Advanced Practice Nurse 02/10/23 Kami Meneses MD #[address] [address] Consulting Physician Urology 06/16/23 Anette Bond MD #2 [place] [address] Consulting Physician Gastroenterology 12/25/22 Kay Gordon APRN, GLASS SCULLION [address] [place] [address] Nurse Practitioner Advanced Practice Nurse 06/16/24 Kami Meneses MD #[address], [address] [address] Consulting Physician Urology 08/19/24 Kami Meneses MD #[address], [address] [address] Consulting Physician Urology 01/06/25 Kami Meneses MD #[address], [address] [address] Consulting Physician Urology 03/08/25
--- OUTSIDE RECORDS SUMMARY | 2025-04-22 12:55 | XMS_ITS | Encounter Summary ---
Author Organization [facility] Address [address] [place] [address] Phone Care Team Providers Care Bar Turner Name Role Phone Fuentes Orellana MD Primary Care Provider [phone] Brent Dickinson DO Unavailable [phone] Faviola Jiménez TAR HEAT EXCHANGER CLEANER, FOUR SLIDE MACHINE SETTER Unavailable Shawnee Mckinney MD Unavailable Chicho Clayton MD Unavailable Lai Lambert TAR HEAT EXCHANGER CLEANER, FOUR SLIDE MACHINE SETTER Unavailable [phone] Kami Meneses MD Unavailable [phone] Anette Bond MD Unavailable [phone] Kay Gordon TAR HEAT EXCHANGER CLEANER, FOUR SLIDE MACHINE SETTER Unavailable Kami Meneses MD Unavailable [phone] Kami Meneses MD Unavailable [phone] Kami Meneses MD Unavailable [phone] Reason for Visit * Reason Comments Medication Refill Encounter Details Date Type Department Care Team (Late st Contact Info) Description 03/25/2021 Refill [facility] - Gastroenterology [facility] [address] [place] [address] Ingrid Mccloud Ashley, PAC [address] [place] [address] Medication Refill Social History Tobacco Use Types [...] Job 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 difficile Rule-Out 04/10/2021 04/10/20212020 12:16 AM CDT documented as of this encounter Care Teams Bar Turner Relationship Specialty Start Date End Date Fuentes Orellana MD 20-B [facility] [place] [address] PCP - General Family Medicine 07/06/15 Brent Dickinson DO 20-B PROFESSIONAL [facility] [place] [address] Gastroenterology 06/27/16 Faviola Jiménez APRN, FOUR SLIDE MACHINE SETTER 20-B PROFESSIONAL [facility] [place] [address] Nurse Practitioner Advanced Practice Nurse 07/22/16 Shawnee Mckinney MD [address] [facility] [address] [place] [address] Urologist Urology 06/07/19 Chicho Clayton MD [address] [facility] [address] [place] [address] Oncology 06/13/19 Lai Lambert APRN, FOUR SLIDE MACHINE SETTER [address] [place] [address] Nurse Practitioner Advanced Practice Nurse 02/10/23 Kami Meneses MD #2 [facility] [address] [address] Consulting Physician Urology 06/16/23 Anette Bond MD [address] [place] [address] Consulting Physician Gastroenterology 12/25/22 Kay Gordon APRN, FOUR SLIDE MACHINE SETTER [address] [place] [address] Nurse Practitioner Advanced Practice Nurse 06/16/24 Kami Meneses MD #[address] [address] Consulting Physician Urology 08/19/24 Kami Meneses MD #[address] [address] Consulting Physician Urology 01/06/25 aKmi Meneses MD #[address] [address] Consulting Physician Urology 03/08/25 documented as of this encounter
--- OUTSIDE RECORDS SUMMARY | 2025-04-22 12:55 | XMS_ITS | Encounter Summary ---
Author Organization [facility] Address [address] [facility] [address] [place] [address] Care Team Providers Care Powerhouse Attendant Name Role Phone Fuentes Orellana MD Primary Care Provider + [phone] Fuentes Orellana MD Primary Care Provider + [phone] Itz Iyer MD Unavailable [phone] Lupillo Davenport MD Unavailable [phone] Lupillo Davenport MD Unavailable [phone] Shawnee Mckinney MD Unavailable [phone] Chicho Clayton MD Unavailable Newton Weeks MD Unavailable [phone] Maria Guadalupe Palacios RN Unavailable Unava ilable Lupillo Davenport MD Unavailable [phone] Itz Iyer MD Unavailable [phone] Itz Iyer MD Unavailable [phone] Itz Iyer MD Unavailable [phone] Itz Iyer MD Unavailable [phone] Itz Iyer MD Unavailable [phone] Itz Iyer MD Unavailable [phone] BryDanis otto [employer]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 Unavailable Roman Antonette NP Unavailable Aniceto Foley MD Unavailable Encounter Details Date Type Department Care Team (Late st Contact Info) Description 11/18/2016 Orders Only [facility] Provider, MD Katie [address] [place] [address] Social History Tobacco Use Types Packs/Day Years Used Date Smoking Tobacco: Never Assessed Sex and Gender Information Value Date Recorded Sex Assigned at Not on file 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 Gender Identity Not on file Sexual Orientation Choose not to disclose 2018 8:58 AM CDT documented as of this encounter Plan of Treatment Upcoming Encounters Date Type Department Care Team (Latest Contact Info) Description 04/24/2025 8:30 AM CDT Hospital Encounter [facility] Operating Room 1 [place] [phone] Aniceto Foley MD [address] [place] [address] PAD (peripheral artery disease) 04/24/2025 8:30 AM CDT Anesthesia Event [facility] Operating Room [address] [place] [id number] Swetha Barr, MARÍA [address] [facility] [id number] [place], [place] [id number] 04/24/2025 8:30 AM CDT - 04/24/2025 11:45 AM CDT Surgery [facility] Operating Room [address] [place] [address] Aniceto Foley MD [address] [place] [address] ANGIOGRAM - HYBRID ROOM aorto iliac angiogram [...] on filedocumented in this encounter Care Teams Powerhouse Attendant Relationship Specialty Start Date End Date Fuentes Orellana MD PCP - General 11/28/16 Fuentes Orellana MD PCP - General 07/14/07 11/27/16 Itz Iyer MD [address] [place] [address] Consulting Physician Urology 05/31/18 Lupillo Davenport MD [address] [facility] [place] [place] [address] Referring Physician Radiation Oncology 05/31/18 Lupillo Davenport MD [address] [place] [address] Referring Physician Radiation Oncology 05/31/18 Shawnee Mckinney MD [address] [facility] [address] [place], [place] [id number] Referring Physician Urology 06/03/18 Chicho Clayton MD [address] [facility] [address] [place], [place] [id number] Medical Oncologist/Hematologis t Medical Oncology 06/07/18 [place] [address] [place] [address] [address] [place] [address] Referring Physician Radiation Oncology 06/07/18 Maria Guadalupe Palacios RN Registered Nurse 06/10/18 Lupillo Davenport MD [address] [place] [address] [place] [address] Referring Physician Radiation Oncology 06/16/18 Itz Iyer MD [address] [address] Consulting Physician Urology 06/17/18 06/17/18 Itz Iyer MD [address] [address] Consulting Physician Urology 06/18/18 06/18/18 Itz Iyer MD [address] [place] [address] Consulting Physician Urology 06/18/18 06/18/18 Itz Iyer MD [address] [place] [address] Consulting Physician Urology 06/22/18 06/22/18 Itz Iyer MD [address] [place] [address] Consulting Physician Urology 07/01/18 07/01/18 Itz Iyer MD [address] [place] [address] Consulting Physician Urology 07/06/18 07/06/18 Danis Meza NP [address] [facility] [address] [place] [address] Nurse Practitioner Urology 10/06/22 Antonette Owens NP [address] [place] [address] Nurse Practitioner Cardiovascular Disease 10/06/22 Aniceto Foley MD [address] [place] [address] Surgeon Vascular Surgery 10/31/22 documented as of this encounter
--- OUTSIDE RECORDS SUMMARY | 2025-04-22 12:58 | XMS_ITS | Encounter Summary ---
Author Organization [facility] Address [address] [place] [address] Care Team Providers Care Customer Relations Assistant Name Role Phone Fuentes Orellana MD Primary Care Provider + [phone] Itz Iyer MD Unavailable [phone] Lupillo Davenport MD Unavailable [phone] Lupillo Davenport MD Unavailable [phone] Shawnee Mckinney MD Unavailable [phone] Chicho Clayton MD Unavailable Newton Weeks MD Unavailable [phone] Maria Guadalupe Palacios RN Unavailable Unava ilable Lupillo Davenport MD Unavailable [phone] Itz Iyer MD Unavailable [phone] Itz Iyer MD Unavailable [phone] Itz Iyer MD Unavailable [phone] Itz Iyer MD Unavailable [phone] Itz Iyer MD Unavailable [phone] Itz Iyer MD Unavailable [phone] Danis Meza NP Unavailable [phone] Antonette Owens NP Unavailable Aniceto Foley MD Unavailable Encounter Details Date Type Department Care Team (Late st Contact Info) Description 03/30/2018 Orders Only [facility] Health Information Management [address] [place] [address] Scanning, Provider Social History Tobacco Use Types Packs/Day Years Used Date Smoking Tobacco: Never Smokeless Tobacco: Never Alcohol Use Standard Drinks/Week Comments Yes 0 (1 standard drink = 0.6 oz pur e alcohol) Sex and Gender Information Value Date Recorded Sex Assigned at Not on file 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 Gender Identity Not on file Sexual Orientation Choose not to disclose 2018 8:58 AM CDT documented as of this encounter Plan of Treatment Upcoming Encounters Date Type Department Care Team (Latest Contact Info) Description 04/24/2025 8:30 AM CDT Hospital Encounter [facility] Operating Room 1 [place] [address] Aniceto Foley MD [address] [place] [address] PAD (peripheral artery disease) 04/24/2025 8:30 AM CDT Anesthesia Event [facility] Operating Room [address] [place] [phone] Swetha Barr, MARÍA [address] [facility] [phone] [place] [address] 04/24/2025 8:30 AM CDT - 04/24/2025 11:45 AM CDT Surgery [facility] Operating Room [address] [place] [address] Aniceto Foley MD [address] [place] [address] ANGIOGRAM - HYBRID ROOM aorto iliac angiogram documented as of this encounter Procedures Procedure Name Priority Date/Time Associated Diagnosis Comments SCAN - LABS 03/30/2018 documented in this encounter Results * SCAN - LABS (03/30/2018) us Provider Scanning Final Result documented in this encounter Visit Diagnoses Not on filedocumented in this encounter Care Teams Customer Relations Assistant Relationship Specialty Start Date End Date Fuentes Orellana MD PCP - General 11/28/16 Itz Iyer MD [address] [place], [place] [address] Consulting Physician Urology 05/31/18 Lupillo Davenport MD [address] [place] [address] Referring Physician Radiation Oncology 05/31/18 Lupillo Davenport MD [address] [place] [address] Referring Physician Radiation Oncology 05/31/18 Shawnee Mckinney MD [address] [facility] [address] [place] [address] Referring Physician Urology 06/03/18 Chicho Clayton MD [address] [facility] [address] [place] [address] Medical Oncologist/Hematologis t Medical Oncology 06/07/18 Newton Weeks MD [address] [facility] [address] [place] [address] Referring Physician Radiation Oncology 06/07/18 Maria Guadalupe Palacios RN Registered Nurse 06/10/18 Lupillo Davenport MD [address] [place] [address] [place] [address] Referring Physician Radiation Oncology 06/16/18 Itz Iyer MD [address] [place] [address] Consulting Physician Urology 06/17/18 06/17/18 Itz Iyer MD [address] [place] [address] Consulting Physician Urology 06/18/18 06/18/18 Itz Iyer MD [address] [place] [address] Consulting Physician Urology 06/18/18 06/18/18 Itz Iyer MD [address] [place] [address] Consulting Physician Urology 06/22/18 06/22/18 Itz Iyer MD [address] [place] [address] Consulting Physician Urology 07/01/18 07/01/18 Itz Iyer MD [address] [address] Consulting Physician Urology 07/06/18 07/06/18 Danis Meza, MARÍA [address] [place] [address] Nurse Practitioner Urology 10/06/22 Antonette Owens NP [address] [facility] [address] [place] [address] Nurse Practitioner Cardiovascular Disease 10/06/22 Aniceto Foley MD [address] [place] [address] Surgeon Vascular Surgery 10/31/22 documented as of this encounter
--- NOTE | 2025-04-22 12:59 | ED.SKABFB ---
HPI - Skin/Abscess/Foreign Bdy General Chief complaint: Skin/Abscess/Foreign Body Stated complaint: Rash Time Seen by Provider: 04/22/25 13:08 Source: patient Mode of arrival: ambulatory Limitations: no limitations History of Present Illness HPI narrative: Mitchell is a 74-year-old male patient presenting to the clinic today with complaints of a rash in the crack of his buttocks. States the rash is been there 4-5 days. Rash is itching, burning, and very tender to touch. Has been having normal stools. Denies any fevers, chills, body aches. Has been applying Desitin without relief. Related Data Home Medications ?Medication ?Instructions ?Recorded ?Confirmed ?Last Taken ?Type nitroglycerin 0.3 mg sublingual 0.3 mg sublingual PRN PRN Chest 12/05/21 04/19/25 Unknown History tablet Pain ticagrelor 60 mg tablet (Brilinta) 60 mg PO BID 12/05/21 04/19/25 03/08/25 History aspirin 81 mg tablet,delayed 81 mg PO DAILY 12/06/21 04/19/25 03/11/25 History release (Adult Aspirin Regimen) chlorthalidone 25 mg tablet 25 mg PO DAILY 04/16/23 04/19/25 03/14/25 History rosuvastatin 40 mg tablet 40 mg PO DAILY 10/13/23 04/19/25 03/14/25 History telmisartan 80 mg tablet 80 mg PO DAILY 06/08/24 04/19/25 03/14/25 History amlodipine 5 mg tablet 5 mg PO DAILY 09/29/24 04/19/25 03/14/25 History metoprolol tartrate 25 mg tablet 25 mg PO Q12H 12/16/24 04/19/25 03/14/25 History gabapentin 100 mg capsule mg PO TID 04/19/25 04/19/25 Unknown History Allergies Allergy/AdvReac Type Severity Reaction Status Date / Time dapagliflozin (From Farxiga) Allergy Severe Hallucinati Verified 04/22/25 12:59 ng metformin AdvReac Severe Diarrhea Verified 04/22/25 12:59 semaglutide (From Ozempic) AdvReac Intermediate Confusion Verified 04/22/25 12:59 Review of Systems Review of Systems: Pertinent positives per HPI. Patient denies any fever, chills, headache, visual changes, dizziness, cough, runny nose, sore throat, shortness of breath, chest pain, palpitations, nausea, vomiting, diarrhea, constipation, abdominal pain, or any urinary issues. [facility] Past Medical History Medical History Bilateral lower extremity edema Hospital discharge follow-up Hard of hearing reads lips Hypertension Anxiety SOB (shortness of breath) Hyponatremia Cerebrovascular disease Diabetic polyneuropathy Lumbar spine pain BMI 27.0-27.9,adult Chronic pain Spasmodic bladder Trochanteric bursitis, left hip Trochanteric bursitis, right hip Heart disease History of prostate cancer Arthritis History of blood clots Carpal tunnel syndrome on both sides Overweight BMI 26.0-26.9,adult Microscopic colitis Dysphagia BMI 26.0-26.9,adult BMI between 19-24,adult Right shoulder pain Left shoulder pain BMI 25.0-25.9,adult 1st MTP arthritis Depression High cholesterol Shortness of breath Wears glasses Light headedness BMI 25.0-25.9,adult GERD (gastroesophageal reflux disease) HLD (hyperlipidemia) HTN (hypertension) Collagenous colitis Adenomatous colon polyp Tendinitis of both rotator cuffs Groin discomfort CAD (coronary artery disease) Carotid stenosis, asymptomatic h/o intracranial cerebral stenosis, evaluated at [place] 05/2019, thought not to be symptomatic cont med tx. Glaucoma Personal history of DVT (deep vein thrombosis) Stenosis of infrarenal abdominal aorta due to arteriosclerosis Says his aorta is mildly enlarged Gout (~08/2019) Prostate cancer Anemia Type 2 diabetes mellitus without complications Surgical History Surgical History H/O umbilical hernia repair 01/03/25; Dr Nunez; 6.[address] hernia patch Status post urinary system surgery AMS 800TM device placed 11/09/24 Dr Meneses (urologist [place] - same urology group as at [place]) Hx of endarterectomy H/O carotid endarterectomy (~10/2022) History of rotator cuff surgery History of angioplasty History of cataract surgery History of colonoscopy 2019 S/P arthroscopic surgery of left knee H/O rectal polypectomy H/O cystoscopy History of prostatectomy Had prostate cancer, status post prostatectomy and later radiation therapy. Has an implanted device to help with urinary incontinence. H/O cardiac catheterization H/O heart artery stent Family History Family History Father , of lung cancer age 83 Hypertension Lung cancer Sibling Hypertension Mother Family history of malignant neoplasm of breast in first degree relative Breast cancer of breast cancer age 37 Sibling No problems noted. Other Diabetes mellitus Family history of cardiovascular disease Family history of elevated blood lipids Family history of malignant neoplasm Social History Social History Social History: The patient has 2 sons and is . He does not have a durable power workers compensation defense attorney. Wishes to be a full code. 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 Uses cane/assist device when out but not always at home. Smoking packs per day: 1 Smoking cigarettes per day: 20.0 Years smoked: 15 Smoking pack-years: 15.00 Smoking status: Former smoker Tobacco type: cigarettes Second hand tobacco smoke exposure: No Smoking end date: 08/31/82 Alcohol intake: unknown Drinks per week: 14 Alcohol use details: 2-3 per day beer Substance use: never Substance use type: does not use Other substance usage details: no beer in over a week; no marijuana in 9 months Do You Feel Safe in your Home?: Yes Lack of Transportation: No Lack of Food: Never True Current Housing: I Have Housing Concerned About Future Housing: No Difficulty Paying Gas/Electric Bills: No Difficulty Paying for Meds: No Currently Unemployed: No Education: Trade/Vocational Certificate Difficulty w/ Childcare or Family Care: No Living arrangements: alone Occupation/Education: retired Additional occupation/education comments: 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 Gender identity (if verbalized by the patient): Male Spiritual care concerns: No Agree to blood products: Yes Comments At the time of my signature, I reviewed and agree with the nursing past medical, surgical, social, and family history. There is no relevant family history pertinent to the patient complaint. Exam Narrative: General: Well-developed, well nourished, in no apparent distress Head: Normocephalic, atraumatic. Cardio: Regular rate and rhythm, s1 and s2 normal, no murmur appreciated. Resp: Clear to auscultation bilaterally, no rhonchi, rales, wheezing or rubs. Integumentary: [place], warm, and dry, red, excoriated rash around the rectum-patient still has stool on the skin-poor hygiene, no satellite or vesicular lesions, no sign of anal fissure or thrombosed hemorrhoid Course Course Emergency Course: Portions of this record may have been created with voice recognition software. Level of Care: Express Care Visit Vital Signs Vital signs: Vital Signs Temperature 36.4 C 04/22/25 13:04 Pulse Rate 69 04/22/25 13:04 Respiratory Rate 18 04/22/25 13:04 Blood Pressure 126/41 L 04/22/25 13:04 Pulse Oximetry 98 04/22/25 13:04 Oxygen Delivery Room Air 04/22/25 13:04 Temperature 36.4 C 04/22/25 13:04 Pulse Rate 69 04/22/25 13:04 Respiratory Rate 18 04/22/25 13:04 Blood Pressure 126/41 L 04/22/25 13:04 Pulse Oximetry 98 04/22/25 13:04 Oxygen Delivery Room Air 04/22/25 13:04 Vital signs reviewed MDM - Skin/Abscess/Foreign Bdy MDM Narrative Medical decision making narrative: At the time of visit patient is resting comfortably on the exam table. Patient appears to be nontoxic. Complaints of a rash in the crack of his buttocks. States the rash is been there 4-5 days. Rash is itching, burning, and very tender to touch. Has been having normal stools. Denies any fevers, chills, body aches. Has been applying Desitin without relief. On exam patient has red, excoriated rash around the rectum-patient still has stool on the skin-poor hygiene, no satellite or vesicular lesions, no sign of anal fissure or thrombosed hemorrhoid Plan: Patient has excoriated rash around his rectum be, patient appears to have poor hygiene and has stool on skin, no sign of yeast infection, vesicular rash, anal fissure, or hemorrhoids. Recommend cleaning the area as best as he can and applying vitamin A and D ointment to the affected area as directed. Supportive measures were discussed with the patient and they voiced understanding discharge instructions and agrees to treatment plan. Return precautions reviewed Differential Diagnosis Differential diagnosis: Likely abscess of skin or subcutaneous tissue, viral exanthem, dermatophytosis, urticaria, herpes zoster, allergic reaction to drug, cellulitis, eczema, insect bites, impetigo and contact dermatitis Discharge Plan Discharge Clinical Impression: Excoriated rash Patient Disposition: Home Condition: Stable Instructions: Antibiotic Form, Acute Rash (ED) Additional Instructions: You have an excoriated rash to the anal folds-no visible sign of yeast infection No sign of infection, hemorrhoids, or anal fissure. Recommend applying vitamin A and D ointment to the affected area 4-6 times daily. Keep area clean and dry as much as possible Follow-up with your primary care doctor in 3-5 days if symptoms persist or sooner if they worsen Patient Language: Cuban Prescriptions: New vitamin A and D Ointment 1 applic topical 4-6XD PRN (Reason: skin irritation) 7 Days Qty: 113 0RF No Action nitroglycerin 0.3 mg tablet, sublingual 0.3 mg sublingual PRN PRN (Reason: Chest Pain) ticagrelor [Brilinta] 60 mg tablet 60 mg PO BID Patient Comments: HOLD 5 days prior to surgery chlorthalidone 25 mg tablet 25 mg PO DAILY telmisartan 80 mg tablet 80 mg PO DAILY rosuvastatin 40 mg tablet 40 mg PO DAILY aspirin [Adult Aspirin Regimen] 81 mg tablet,delayed release (DR/EC) 81 mg PO DAILY linagliptin 5 mg tablet 5 mg PO QAM Qty: 90 2RF (DME) Accu-Chek Aaliyah Plus test strp Strip See Rx Instructions .Route Qty: 400 1RF Rx Instructions: Check blood sugar 4 times daily (DME) lancets [E-Z Ject Lancets] 33 gauge misc See Rx Instructions .Route Qty: 400 12RF Rx Instructions: three times daily glimepiride 1 mg tablet 1 mg PO BID Qty: 180 1RF Rx Instructions: 1 mg before breakfast and 1 mg before supper Gvoke HypoPen 2-Pack 1 mg/0.2 mL auto-injector 1 mg subcut ONCE Qty: 0.4 0RF Rx Instructions: as a single dose; may repeat once after 15 minutes if no response amlodipine 5 mg tablet 5 mg PO DAILY albuterol sulfate [Ventolin HFA] 90 mcg/actuation HFA aerosol inhaler 2 inh inhalation Q4H PRN (Reason: shortness of breath or wheezing) Qty: 8.5 0RF gabapentin 100 mg capsule PO TID metoprolol tartrate 25 mg Tablet 25 mg PO Q12H alprazolam 0.5 mg tablet 0.5 mg PO TID PRN (Reason: Anxiety) Qty: 20 0RF allopurinol 300 mg tablet 300 mg PO DAILY Qty: 90 1RF pantoprazole 40 mg tablet,delayed release (DR/EC) 40 mg PO DAILY Qty: 90 1RF Kerendia 10 mg tablet See Rx Instructions .ROUTE .COMPLEX Qty: 30 12RF Dose Instruction: TAKE 1 TABLET BY MOUTH DAILY Rx Instructions: TAKE 1 TABLET BY MOUTH DAILY Follow-up/Referrals: Fuentes Orellana MD [Primary Care Provider, Family Practice] Time of Disposition: 13:23 Quality NIHSS Nursing Documentation ED NIHSS nursing documentation: reviewed/agree
[2025-04-22 13:04] VITALS: BP 126/41; PULSE 69; RESP 18; TEMP 36.4; O2SAT 98
== END 2025-04-22 13:30 | disposition home or self-care (01) ==
PROVIDERS: Emergency Provider Nurse Practitioner Family; PCP Family Medicine
DX: R21 Rash and other nonspecific skin eruption (principal); Z87.891 Personal history of nicotine dependence; I10 Essential (primary) hypertension; F41.9 Anxiety disorder, unspecified; I67.9 Cerebrovascular disease, unspecified; E11.42 Type 2 diabetes mellitus with diabetic polyneuropathy; Z79.84 Long term (current) use of oral hypoglycemic drugs; E78.00 Pure hypercholesterolemia, unspecified; K21.9 Gastro-esophageal reflux disease without esophagitis; I25.10 Atherosclerotic heart disease of native coronary artery without angina pectoris; Z86.718 Personal history of other venous thrombosis and embolism; M10.9 Gout, unspecified; Z85.46 Personal history of malignant neoplasm of prostate; Z90.79 Acquired absence of other genital organ(s); Z95.5 Presence of coronary angioplasty implant and graft; Z79.82 Long term (current) use of aspirin
CPT/HCPCS: 99213; G0463

== ENCOUNTER 2025-05-01 12:18 | Emergency (ER) | payer MEDICARE, SELFPAY ==
--- OUTSIDE RECORDS SUMMARY | 2005-08-04 03:15 | XMS_ITS | Continuity of Care Document ---
Author Organization [facility] Address [address] [place] [address] [place] [address] Phone Care Team Providers Care Environmental Studies Faculty Member Name Role Phone To Torres MD Unavailable Unavailable Advance Directives Directive Yes / No Effective Date File Name No Information Encounters Encounter Description Practice Location Reason(s) For Visit Diagnoses Date Provider Providers Copied on Encounter [facility], [address], [place], [place], [id number], tel:[phone] [facility] No Information Dec-0 5-200 5 Melissa Ariza. [address] [facility] [address], [place], [place], [address], [place]. tel:[phone] Family History Family Member Type Diagnosis Age At Onset No Information Payers Payer name Insurance type Covered green party ID Authoriza tion(s) Medicaid COUNT [facility]CLUDES [facility] [id number] Social History Type Description Quantity Date Captured [...]
--- OUTSIDE RECORDS SUMMARY | 2025-05-01 12:23 | XMS_ITS | Clinical Summary ---
Author Organization [facility] Address [address], [facility] [address] [place] [address] Phone Care Team Providers Care Biostatistics Director Name Role Phone Fuentes Orellana MD Primary Care Provider [phone] Brent Dickinson DO Unavailable [phone] Faviola Jiménez INSOLE ROUNDER, HEAVY FORGER Unavailable Shawnee Mckinney MD Unavailable Chicho Clayton MD Unavailable Lai Lambert INSOLE ROUNDER, HEAVY FORGER Unavailable [phone] Kami Meneses MD Unavailable [phone] Anette Bond MD Unavailable [phone] Kay Gordon APRN, HEAVY FORGER Unavailable Kami Meneses MD Unavailable [phone] Kami Meneses MD Unavailable Kami Meneses MD Unavailable [phone] Allergies Active Allergy Reactions Criticality Noted Date Comments Semaglutide Other (see Comments) Low 04/03/2025 Medications lisinopril (PRINIVIL, ZESTRIL) 40 MG Tablet [...] Active Additional Information Patient not taking.Reported on 04/28/2025 ticagrelor (BRILINTA) 60 MG Tablet Take 60 [...] 3 times daily. 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 Iron deficiency anemia 02/15/2020 Collagenous colitis 07/22/2016 Gastroesophageal reflux disease 07/22/2016 Hx of colonic polyps 07/22/2016 Encounters Date Type Department Care Team Description 04/28/2025 11:15 AM CDT Office Visit [facility] [address] [place] [address] Kami Meneses MD UTI symptoms (Primary Dx) Discharge Disposition: Discharged to home or Selfcare 04/28/2025 Travel 03/22/2025 Telephone [facility] [address] [place] [address] Kami Meneses MD Pain 03/10/2025 2:15 PM CDT Office Visit [facility] [address] [place] [address] Kami Meneses MD Stress incontinence (female) (male) (Primary Dx); Prostate cancer (HCC) Discharge Disposition: Discharged to home or Selfcare 03/10/2025 Travel from Last 3 Months Immunizations Immunization [...] Job 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 Not on file Not on cory e Last Filed Vital Signs Vital Sign Reading Time Taken Comments Blood Pressure 135/71 04/28/2025 11:05 AM CDT Pulse 97 04/28/2025 11:05 AM CDT Temperature 36.4 C (97.6 F) 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[employer] Respiratory Rate 16 04/28/2025 11:05 AM CDT Oxygen Saturation 98% 04/28/2025 11:05 AM CDT Inhaled Oxygen Concentration - - Weight 74.4 kg (164 lb) 03/10/2025 2:24 PM CDT Height 162.6 cm (5' 4) 04/28/2025 11:05 AM CDT Body Mass Index 28.15 03/10/2025 2:24 [...] Procedure Name Priority Date/Time Associated Diagnosis Comments CAMI,POST-VOID RES,US,NON-IMAGING Routine 04/28/2025 11:15 AM CDT UTI symptoms COLONOSCOPY Routine 05/24/2020 from Last 3 Months or Most Recently Relevant to Health Maintenance Results * CAMI,POST-VOID RES,US,NON-IMAGING (04/28/2025 11:15 AM CDT) Narrative FuentesElidia loyd - 04/28/2025 11:15 AM CDT Elidia Dill 04/28/2025 10:28 PM POCT Bladder Scan collected per standing order of Dr. Meneses on 04/28/2025 PVR= 18 ML [facility] [place] - SURGERY Final Result * COLONOSCOPY (05/24/2020) Brent Dickinson DO PROCEDURE/MINOR SURGICAL ORDERA BLES Final Result from Last 3 Months or Most Recently Relevant to Health Maintenance Insurance MEDICARE [facility] Care Teams Biostatistics Director Relationship Specialty Start Date End Date Fuentes Orellana MD [address] [facility] [facility] [place] [address] PCP - General Family Medicine 07/06/15 Brent Dickinson DO [address] [facility] [place] [address] Gastroenterology 06/27/16 Faviola Jiménez APRN, HEAVY FORGER [address] [facility] [place] [address] Nurse Practitioner Advanced Practice Nurse 07/22/16 Shawnee Mckinney MD [address] [facility] [address] [place] [address] Urologist Urology 06/07/19 Chicho Clayton MD [address] [facility] [address] [place] [address] Oncology 06/13/19 Lai Lambert APRN, HEAVY FORGER [address] [place] [address] Nurse Practitioner Advanced Practice Nurse 02/10/23 Kami Meneses MD #[address] [address] Consulting Physician Urology 06/16/23 Anette Bond MD [address] [place] [address] Consulting Physician Gastroenterology 12/25/22 Kay Gordon APRN, HEAVY FORGER [address] [facility] [place] [address] Nurse Practitioner Advanced Practice Nurse 06/16/24 Kmai Meneses MD [address], [facility] [address] [place] [address] Consulting Physician Urology 08/19/24 Kami Meneses MD [address], [facility] [address] [place] [address] Consulting Physician Urology 01/06/25 Kami Meneses MD [address], [facility] [address] [place] [address] Consulting Physician Urology 03/08/25
--- OUTSIDE RECORDS SUMMARY | 2025-05-01 12:23 | XMS_ITS | Encounter Summary ---
Author Organization [facility] Address [address] [place] [address] Phone Care Team Providers Care Urologist Name Role Phone Fuentes Orellana MD Primary Care Provider Brent Dickinson DO Unavailable [phone] Faviola Jiménez PROOFER, FORKLIFT WHEEL LOADER Unavailable Shawnee Mckinney MD Unavailable Chicho Clayton MD Unavailable Lai Lambert PROOFER, FORKLIFT WHEEL LOADER Unavailable [phone] Kami Meneses MD Unavailable [phone] Anette Bond MD Unavailable [phone] Kay Gordon PROOFER, FORKLIFT WHEEL LOADER Unavailable Kami Meneses MD Unavailable [phone] Kami Meneses MD Unavailable [phone] Kami Meneses MD Unavailable [phone] Reason for Visit * Reason Comments Medication Refill Encounter Details Date Type Department Care Team (Late st Contact Info) Description 10/15/2021 Refill [facility] - G[facility] [address] [place] [address] Ingrid Mccloud Ashley, PAC [address] [place] [address] Medication Refill Social History Tobacco Use Types [...] 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 [facility] TECH documented in this encounter Plan of Treatment Not on file documented as of this encounter Visit Diagnoses Not on filedocumented in this encounter Care Teams Urologist Relationship Specialty Start Date End Date Fuentes Orellana MD [address] [address] PCP - General Family Medicine 07/06/15 Brent Dickinson DO [address] [address] Gastroenterology 06/27/16 Faviola Jiménez, PROOFER, FORKLIFT WHEEL LOADER [address] [address] Nurse Practitioner Advanced Practice Nurse 07/22/16 Shawnee Mckinney MD [address] [facility] [address] [place] [address] Urologist Urology 06/07/19 Chicho Clayton MD [address] [facility] [address] [place] [address] Oncology 06/13/19 Lai Lambert APRN, FORKLIFT WHEEL LOADER [address] [place] [address] Nurse Practitioner Advanced Practice Nurse 02/10/23 Kami Meneses MD [address] [address] Consulting Physician Urology 06/16/23 Anette Bond MD [address] [place] [address] Consulting Physician Gastroenterology 12/25/22 Kay Gordon APRN, FORKLIFT WHEEL LOADER [address] [place] [address] Nurse Practitioner Advanced Practice Nurse 06/16/24 Kami Meneses MD [address] [address] Consulting Physician Urology 08/19/24 Kami Meneses MD [address] [address] Consulting Physician Urology 01/06/25 Kami Meneses MD [address]2 [facility], [address] [address] Consulting Physician Urology 03/08/25 documented as of this encounter
--- OUTSIDE RECORDS SUMMARY | 2025-05-01 12:23 | XMS_ITS ---
Author Organization [facility] [address] Address [address] [place] [address] Care Team Providers Care Client Analyst Name Role Phone Fuentes Orellana MD Primary Care Provider Itz Iyer MD Unavailable [phone] Shawnee Mckinney MD Unavailable [phone] Chicho Clayton MD Unavailable Maria Guadalupe Palacios RN Unavailable Unava ilable Lupillo Davenport MD Unavailable [phone] Danis Meza MANAGEMENT INFORMATION SYSTEMS DIRECTOR Unavailable Antonette Owens NP Unavailable Aniceto Foley MD Unavailable [phone] Active Problems Problem Noted Date Diagnosed Date Cardiac disease 04/24/2025 Assessment & Plan (04/25/2025 6:05 AM CDT): Hx of CAD with PCI in 2017, HTN. On home Brilinta, telmisartan, metoprolol, amlodipine and chlorthalidone. - Continue asa, statin. - F/u plan for Brilinta. - Resume home amlodipine, metop, chlorthalidone. Telmisartan not on formulary. Will start reduced losartan 25mg Peripheral artery disease 04/24/2025 PAD (peripheral artery disease) 03/10/2025 Stress incontinence [...] (10/21/2022): Added automatically from request for surgery [id number] Assessment & Plan (10/30/2022 2:56 PM HYDROGRAPHIC ENGINEER): - OR 3/2 for planned R CEA - OU status, Q2h NV/VS monitoring - Bedrest today, OOB/PT POD #1 - SBP goal 100-160, nicardipine for elevated BP - Continue aspirin and statin - Plan to stager home medications and resume overnight Atherosclerosis of [place] ar teries of extremities with intermittent claudication, bilateral legs 06/03/2022 Melanoma 01/10/2021 Anxiety 01/10/2021 DM (diabetes mellitus) 01/10/2021 Assessment & Plan (04/25/2025 6:06 AM CDT): NIDDM, on finerenon, amaryl, tradjenta. - Hold home PO diabetic meds while inpatient. Restart at discharge. - Diabetic diet, SSI Assessment & Plan (10/30/2022 9:59 AM HYDROGRAPHIC ENGINEER): - A1c 7.6% 10/2022 - SSI while inpatient - CC diet when eating Elevated left ventricular end-diastolic pressure (LVEDP) 11/15/2019 Encounter for surgical after care following surgery of circulatory system 05/20/2019 Prostate cancer 09/10/2018 Assessment & Plan (10/27/2018 9:53 AM HYDROGRAPHIC ENGINEER): Follows with urology, has his PSA monitored it is increasing, but still WNL 1.4 Assessment & Plan (09/22/2018 11:35 AM HYDROGRAPHIC ENGINEER): Has close follow up with his oncologist. His PSA was slightly elevated on last check. Hyperlipidemia 09/21/2017 Assessment & Plan (06/30/2018 9:38 AM CDT): His last lipid panel was within acceptable range; he will continue on a high intensity statin. Assessment & Plan (09/21/2017 11:34 AM HYDROGRAPHIC ENGINEER): Continue Lipitor 40 mg daily. Essential hypertension 07/20/2017 Assessment & Plan (10/30/2022 2:57 PM HYDROGRAPHIC ENGINEER): - Tight BP goals post-procedure - Continue home medications as indicated by BP goals as above, staggering overnight for gentle BP control Assessment & Plan (10/27/2018 9:54 AM HYDROGRAPHIC ENGINEER): Hypertension is unchanged. Dietary sodium restriction. Blood pressure will be reassessed in 4 weeks. Assessment & Plan (09/22/2018 11:38 AM HYDROGRAPHIC ENGINEER): Hypertension remains elevated. He is increasing [...] today Assessment & Plan (09/21/2017 11:33 AM HYDROGRAPHIC ENGINEER): Blood pressure is well controlled today. Last visit we added HCTZ 12.5 mg daily. Continue current medications Assessment & Plan (08/10/2017 11:26 AM HYDROGRAPHIC ENGINEER): Blood pressure is not controlled. Add hydrochlorothiazide 12.5 mg p.o. daily. He is compliant with medications but always add salt to food which I advised him not to do that. Assessment & Plan (07/20/2017 9:19 AM HYDROGRAPHIC ENGINEER): Blood pressure remains uncontrolled. We will order renal Doppler ultrasound to rule out renal artery stenosis given the fact that he has peripheral vascular disease and coronary artery disease. I will increase amlodipine from 5-10 mg p.o. daily. If that does not control the blood pressure we will add hydrochlorothiazide 12.5 mg p.o. Daily. Coronary artery disease invo lving gulkana coronary artery of gulkana heart without angina pectoris 07/20/2017 Assessment & Plan (10/30/2022 9:58 AM HYDROGRAPHIC ENGINEER): - Continue home medications as able - Maintained on Brilinta as an outpatient; held 1 week prior to OR - Will discuss with surgery team when to safely resume post-procedure Assessment & Plan (10/27/2018 9:59 AM HYDROGRAPHIC ENGINEER): Coronary artery disease is improving with lifestyle modifications. Continue current treatment regimen. Cardiac status will be reassessed in 3 months. No chest pain. Minimal SOB. Continue asa, statin, brilinta Assessment & Plan (09/22/2018 11:36 AM HYDROGRAPHIC ENGINEER): Coronary artery disease is unchanged. Regular [...] BB. Assessment & Plan (09/21/2017 11:33 AM HYDROGRAPHIC ENGINEER): Continue aspirin, Brilinta, Toprol XL and atorvastatin. Assessment & Plan (08/10/2017 11:27 AM HYDROGRAPHIC ENGINEER): Continue Brilinta and aspirin. Asymptomatic. Assessment & Plan (07/20/2017 9:19 AM HYDROGRAPHIC ENGINEER): Continue aspirin, Brilinta, Lipitor , metoprolol PVD (peripheral vascular disease) 07/20/2017 Assessment & Plan (04/25/2025 6:07 AM CDT): Hx of aortoiliac occlusive disease with previous stents, now presenting with return of BLE claudication. - OR 04/24 for angiogram and infrarenal lesion treated with 8mm Shockwave followed by 8mm VBX. Lesion proximal to aortic bifurcation treated with 8mm Shockwave and 8mm Express stent. Bilateral iliac artery stenting with VBX (7mm right, 8mm left). Vascade to both groins. Strong monophasic PTs at completion. -dc noris, OU -keep mcgrath as above -OOB - Continue asa, statin. On Brillinta as outpatient which was held for this procedure. Follow up plan. Assessment & Plan (10/27/2018 9:21 AM HYDROGRAPHIC ENGINEER): S/P bilateral ALVA angioplasty; right EIA angioplasty/stent 11/21/14. S/P aortoiliac angioplasty/stent 05/28/09. Continues on asa, statin and brilinta Assessment & Plan (09/21/2017 11:34 AM HYDROGRAPHIC ENGINEER): He follows up with vascular surgery at [facility] Assessment & Plan (08/10/2017 11:27 AM HYDROGRAPHIC ENGINEER): Renal ultrasound suggest more than 60% stenosis in the right renal artery and infrarenal stenosis 50-70%. He follows up with Dr. Foley from vascular surgery at [facility] Assessment & Plan (07/20/2017 9:20 AM HYDROGRAPHIC ENGINEER): Patient will follow up with Dr. Foley from vascular surgery. He does have some claudication when he walks. 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 -Urology consulted intra-op: AUS was activated but feel patient unable to empty due to bedrest. Patient wanted urology to completely deactivate which was done. -8/25PM: issues with retention. Urology called back. re-activate the patient's AUS and then deactivate it once more. This was confirmed with a persistent dimple in the AUS pump --straigth cath x1. Persistent retention so mcgrath was placed -call urology back to determine plan Current Treatment and Therapy Plans No current plan information found. Past Treatment and Therapy Plans No past plan information found. Lifetime Dose Tracking * Chemical Lifetime Dose Automatic Entry Manual Entr y Fluoro Time 28 minutes 21.7 minutes 6.3 minutes Air kerma at the reference point (Ka,r) 1,085 mGy 6 66 mGy 419 mGy DLP 2,174 mGycm 2,174 mGycm 0 mGycm DAP 23.549 Gy-cm2 0 Gy-cm2 23.549 Gy-cm2 Resolved Problems Problem Noted Date Diagnosed Date Resolved Date Dizzinesses 10/27/2018 02/09/2019 Assessment & Plan (10/27/2018 10:17 AM HYDROGRAPHIC ENGINEER): Persistent dizziness. Has stopped caffeine intake. [...] implant or graft 6 02/09/2019 Atherosclerosis of gulkana artery of extremity 04/15/20 16 02/09/2019 Assessment & Plan (09/22/2018 11:26 AM HYDROGRAPHIC ENGINEER): 80% circumflex s/p RICHARD. 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 {plan; hypertension for POC:[id number]} Blood pressure will be reassessed {plan; follow-up 2 weeks/4weeks/3months:[id number]}. Increase amolodipine to 10 mg Continue all [...]
--- OUTSIDE RECORDS SUMMARY | 2025-05-01 12:23 | XMS_ITS | Encounter Summary ---
Author Organization [facility] Address [address] [facility] [address] [place] [address] Care Team Providers Care Environmental Protection Geologist Name Role Phone Fuentes Orellana MD Primary Care Provider [phone] Fuentes Orellana MD Primary Care Provider [phone] Itz Iyer MD Unavailable [phone] Lupillo Davenport MD Unavailable [phone] Lupillo Davenport MD Unavailable [phone] Shawnee Mckinney MD Unavailable [phone] Chicho Clayton MD Unavailable Newton Weeks MD Unavailable [phone] Maria Guadalupe Palacios RN Unavailable Unava ilable Lupillo Davenport MD Unavailable [phone] tIz Iyer MD Unavailable [phone] Itz Iyer MD Unavailable [phone] Itz Iyer MD Unavailable [phone] Itz Iyer MD Unavailable [phone] Itz Iyer MD Unavailable [phone] Itz Iyer MD Unavailable [phone] Danis Meza OFF PREMISE SERVICE REPRESENTATIVE Unavailable [phone] Rater, Antonette OFF PREMISE SERVICE REPRESENTATIVE Unavailable Aniceto Foley MD Unavailable [phone] Encounter Details Date Type Department Care Team (Late st Contact Info) Description 11/18/2016 Orders Only [facility] Provider, MD Katie [facility] [place] [address] Social History Tobacco Use Types Packs/Day Years Used Date Smoking Tobacco: Never Assessed Sex and Gender Information Value Date Recorded Sex Assigned at Not on file Legal Sex Male 12:32 AM DRAWER WAXER Gender Identity Not on file Sexual Orientation [...] on filedocumented in this encounter Care Teams Environmental Protection Geologist Relationship Specialty Start Date End Date Fuentes Orellana MD PCP - General 11/28/16 Fuentes Orellana MD PCP - General 07/14/07 11/27/16 Itz Iyer MD [address] [facility] [address] [place] [id number] Consulting Physician Urology 05/31/18 Lupillo Davenport MD [address] [place] [address] Referring Physician Radiation Oncology 05/31/18 Lupillo Davenport MD [address] [place] [address] Referring Physician Radiation Oncology 05/31/18 Shawnee Mckinney MD [address] [facility] [address] [place] [address] Referring Physician Urology 06/03/18 Chicho Clayton MD [address] [facility] [address] [place] [address] Medical Oncologist/Hematologis t Medical Oncology 06/07/18 Newton Weeks MD [address] [facility] [address] [place] [address] Referring Physician Radiation Oncology 06/07/18 Maria Guadalupe Palacios, RN Registered Nurse 06/10/18 Lupillo Davenport MD [address] [place] [address] Referring Physician Radiation Oncology 06/16/18 Itz Iyer MD [address] [address] Consulting Physician Urology 06/17/18 06/17/18 Itz Iyer MD [address] [address] Consulting Physician Urology 06/18/18 06/18/18 Itz Iyer MD [address] [place] [address] Consulting Physician Urology 06/18/18 06/18/18 Itz Iyer MD [address] [place] [address] Consulting Physician Urology 06/22/18 06/22/18 Itz Iyer MD [address] [place] [address] Consulting Physician Urology 07/01/18 07/01/18 Itz Iyer MD [address] [place] [address] Consulting Physician Urology 07/06/18 07/06/18 Danis Meza NP [address] [place] [address] Nurse Practitioner Urology 10/06/22 Antonette Owens NP [address] [place] [address] Nurse Practitioner Cardiovascular Disease 10/06/22 Aniceto Foley MD [id number] [place] [address] Surgeon Vascular Surgery 10/31/22 documented as of this encounter
--- OUTSIDE RECORDS SUMMARY | 2025-05-01 12:23 | XMS_ITS | Encounter Summary ---
Author Organization [facility] Address [address] [place] [address] Phone Care Team Providers Care Special Certificate Dictator Name Role Phone Fuentes Orellana MD Primary Care Provider Brent Dickinson DO Unavailable [phone] Faviola Jiménez EXAMINER OF CURRENCY, STRUCTURAL ENGINEER Unavailable Shawnee Mckinney MD Unavailable Chicho Clayton MD Unavailable Lai Lambert EXAMINER OF CURRENCY, STRUCTURAL ENGINEER Unavailable [phone] Kami Meneses MD Unavailable [phone] Anette Bond MD Unavailable [phone] Kay Gordon EXAMINER OF CURRENCY, STRUCTURAL ENGINEER Unavailable Kami Meneses MD Unavailable [phone] Kami Meneses MD Unavailable [phone] Kami Meneses MD Unavailable [phone] Reason for Visit * Reason Comments Medication Refill Encounter Details Date Type Department Care Team (Late st Contact Info) Description 11/12/2022 Refill [facility] - Gastroenterology - [place] [address] [place] [address] Ingrid Mccloud Ashley, PAC [address] [place] [address] Medication Refill Social History Tobacco Use Types [...] Job 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 Not on file [...] on filedocumented in this encounter Care Teams Special Certificate Dictator Relationship Specialty Start Date End Date Fuentes Orellana MD [address] [place] [address] PCP - General Family Medicine 07/06/15 Brent Dickinson DO [address] [address] Gastroenterology 06/27/16 Faviola Jiménez APRN, STRUCTURAL ENGINEER [address] [address] Nurse Practitioner Advanced Practice Nurse 07/22/16 Shawnee Mckinney MD [address] [facility] [address] [place] [address] Urologist Urology 06/07/19 Chicho Clayton MD [address] [facility] [address] [place] [address] Oncology 06/13/19 Lai Lambert APRN, STRUCTURAL ENGINEER [address] [place] [address] Nurse Practitioner Advanced Practice Nurse 02/10/23 Kami Meneses MD #[address] [address] Consulting Physician Urology 06/16/23 Anette Bond MD [address] [place] [address] Consulting Physician Gastroenterology 12/25/22 Kay Gordon APRN, STRUCTURAL ENGINEER [address] [place] [address] Nurse Practitioner Advanced Practice Nurse 06/16/24 Kami Meneses MD [address] [facility] [address] [place] [address] Consulting Physician Urology 08/19/24 Kami Meneses MD [address], [facility] [address] [place] [address] Consulting Physician Urology 01/06/25 Kami Meneses MD [address], [facility] [address] [place] [address] Consulting Physician Urology 03/08/25 documented as of this encounter
--- OUTSIDE RECORDS SUMMARY | 2025-05-01 12:23 | XMS_ITS | Encounter Summary ---
Author Organization [facility] Address [address] [place] [address] Phone Care Team Providers Care Poacher Wringer Operator Name Role Phone Fuentes Orellana MD Primary Care Provider [phone] Itz Iyer MD Unavailable [phone] Lupillo Davenport MD Unavailable [phone] Lupillo Davenport MD Unavailable [phone] Shawnee Mckinney MD Unavailable [phone] Chicho Clayton MD Unavailable Newton Weeks MD Unavailable [phone] Maria Guadalupe Palacios RN Unavailable Unava ilable Lupillo Davenport MD Unavailable [phone] Itz Iyer MD Unavailable [phone] Itz Iyer MD Unavailable [phone] Itz Iyer MD Unavailable [phone] Itz Iyer MD Unavailable [phone] Itz Iyer MD Unavailable [phone] Itz Iyer MD Unavailable [phone] Danis Meza CLERK ENTRY LEVEL Unavailable [phone] Antonette Owens CLERK ENTRY LEVEL Unavailable Aniceto Foley MD Unavailable [phone] Encounter Details Date Type Department Care [...] on file Legal 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 Gender Identity Not on file Sexual [...] on filedocumented in this encounter Care Teams Poacher Wringer Operator Relationship Specialty Start Date End Date Fuentes Orellana MD PCP - General 11/28/16 Itz Iyer MD [address] [facility] [address] [place] [address] Consulting Physician Urology 05/31/18 Lupillo Davenport MD [address] [place] [address] Referring Physician Radiation Oncology 05/31/18 Lupillo Davenport MD [address] [place] [address] Referring Physician Radiation Oncology 05/31/18 Shawnee Mckinney MD [address] [facility] [address] [place] [address] Referring Physician Urology 06/03/18 Chicho Clayton MD [address] [facility] [address] [place] [address] Medical Oncologist/Hematologis t Medical Oncology 06/07/18 Newton Weeks MD [address] [facility] [address] [place] [address] Referring Physician Radiation Oncology 06/07/18 Maria Guadalupe Palacios, RN Registered Nurse 06/10/18 Lupillo Davenport MD [address] [place] [address] [place] [address] Referring Physician Radiation Oncology 06/16/18 Itz Iyer MD [address] [place] [address] Consulting Physician Urology 06/17/18 06/17/18 Itz Iyer MD [address] [address] Consulting Physician Urology 06/18/18 06/18/18 Itz Iyer MD [address] [address] Consulting Physician Urology 06/18/18 06/18/18 Itz Iyer MD [address] [place] [address] Consulting Physician Urology 06/22/18 06/22/18 Itz Iyer MD [address] [place] [address] Consulting Physician Urology 07/01/18 07/01/18 Itz Iyer MD [address] [place] [address] Consulting Physician Urology 07/06/18 07/06/18 Danis Meza NP [address] [place] [address] Nurse Practitioner Urology 10/06/22 Antonette Owens NP [address] [place] [address] Nurse Practitioner Cardiovascular Disease 10/06/22 Aniceto Foley MD [id number] [place] [address] Surgeon Vascular Surgery 10/31/22 documented as of this encounter
--- OUTSIDE RECORDS SUMMARY | 2025-05-01 12:23 | XMS_ITS | Encounter Summary ---
Author Organization [facility] Address [address] [place] [address] Phone Care Team Providers Care Door Repairer Bus Name Role Phone Fuentes Orellana MD Primary Care Provider Brent Dickinson DO Unavailable [phone] Faviola Jiménez WIRE DRAWING MACHINE TENDER, PROGRAM PARAPROFESSIONAL Unavailable Shawnee Mckinney MD Unavailable Chicho Clayton MD Unavailable Lai Lambert WIRE DRAWING MACHINE TENDER, PROGRAM PARAPROFESSIONAL Unavailable [phone] Kami Meneses MD Unavailable [phone] Anette Bond MD Unavailable [phone] Kay Gordon WIRE DRAWING MACHINE TENDER, PROGRAM PARAPROFESSIONAL Unavailable Kami Meneses MD Unavailable [phone] Kami Meneses MD Unavailable [phone] Kami Meneses MD Unavailable [phone] Encounter Details Date Type Department Care Team (Late st Contact Info) Description 08/22/2024 Telephone [facility] [address] [place] [address] Kami Meneses MD [address] [place] [address] Social History Tobacco Use Types Packs/Day Years [...] 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 Otto message. RANCE PRODUCER * Telephone Encounter - Kami Meneses MD [...] sphincter. This needs to be done at [facility] by me. He will need a urine culture 14 days prior to surgery. Hibiclens shower the night before morning of surgery, vancomycin and gentamicin for antibiotics RANCE PRODUCER RANCE PRODUCER documented in this encounter Plan of Treatment Not on file documented as of this encounter Visit Diagnoses Not on filedocumented in this encounter Care Teams Door Repairer Bus Relationship Specialty Start Date End Date Fuentes Orellana MD [address] [place] [address] PCP - General Family Medicine 07/06/15 Brent Dickinson DO [address] [facility] [place] [address] Gastroenterology 06/27/16 Faviola Jiménez APRN, PROGRAM PARAPROFESSIONAL [address] [facility] [place] [address] Nurse Practitioner Advanced Practice Nurse 07/22/16 Shwanee Mckinney MD [address] [facility] [address] [place] [address] Urologist Urology 06/07/19 Chicho Clayton MD [address] [facility] [address] [place] [address] Oncology 06/13/19 Lai Lambert APRN, PROGRAM PARAPROFESSIONAL [address] [place] [address] Nurse Practitioner Advanced Practice Nurse 02/10/23 Kami Meneses MD [address] [address] Consulting Physician Urology 06/16/23 Anette Bond MD [address] [place] [address] Consulting Physician Gastroenterology 12/25/22 Kay Gordon APRN, PROGRAM PARAPROFESSIONAL [address] [place] [address] Nurse Practitioner Advanced Practice Nurse 06/16/24 Kami Meneses MD [address] [address] Consulting Physician Urology 08/19/24 Kami Meneses MD [address] [place] [address] Consulting Physician Urology 01/06/25 Kami Meneses MD [address] [address] Consulting Physician Urology 03/08/25 documented as of this encounter
--- OUTSIDE RECORDS SUMMARY | 2025-05-01 12:23 | XMS_ITS | Clinical Summary ---
Author Organization [facility] [address] [place] [address] Care Team Providers Care Csm Consultant Name Role Phone Fuentes Orellana MD Primary Care Provider Itz Iyer MD Unavailable Shawnee Mckinney MD Unavailable [phone] Chicho Clayton MD Unavailable Maria Guadalupe Palacios RN Unavailable Unava ilable Lupillo Davenport MD Unavailable [phone] Danis Meza [employer]ODUCTION MANAGER Unavailable Antonette Owens NP Unavailable Aniceto Foley MD Unavailable [phone] Allergies Active Allergy Reactions Criticality Noted [...] immediate release tabletIndicat ions:Coronary artery disease involving ute mountain coronary artery of ute mountain heart without angina pectoris TAKE 1 TABLET(25 MG) BY MOUTH TWICE DAILY 90 tablet 3 02/28/20 25 Active Additional Information Patient taking differently:25 mg oral 2 times daily,Indications: hypertension, Informant: Self, Reported on 04/24/2025 rosuvastatin (CRESTOR) 40 mg tablet TAKE 1 TABLET(40 MG) BY MOUTH DAILY 30 tablet 3 03/21/20 25 Active gabapentin (NEURONTIN) 100 mg capsuleIndica tions:Diabeti c [...] day 180 tablet 3 04/12/20 25 Active polyethylene glycol (MIRALAX) 17 gram/dose bulk powderIndicat ions:constipa tion Take 17 g by mouth daily 578 g 04/26/20 25 Active amLODIPine (NORVASC) 5 mg tablet TAKE 1 TABLET(5 MG) BY MOUTH DAILY 90 tablet 3 04/28/20 25 Active amLODIPine (NORVASC) 5 mg tabletIndicat ions:hyperten arcelia Take 1 tablet (5 mg total) by mouth every morning 025 Discontinued Brilinta 60 mg tablet Take 1 tablet (60 mg total) by mouth 2 (two) times a day 180 tablet 2 02/28/20 25 025 Discontinued(Re order) Active Problems Problem Noted Date Diagnosed Date [...] (10/21/2022): Added automatically from request for surgery [id number] Assessment & Plan (10/30/2022 2:56 PM MIXING TECHNICIAN): - OR 3/2 for planned R CEA - OU status, Q2h NV/VS monitoring - Bedrest today, OOB/PT POD #1 - SBP goal 100-160, nicardipine for elevated BP - Continue aspirin and statin - Plan to stager home medications and resume overnight Atherosclerosis of ute mountain ar teries of extremities with intermittent claudication, bilateral legs 06/03/2022 Melanoma 01/10/2021 Anxiety 01/10/2021 DM (diabetes mellitus) 01/10/2021 Assessment & Plan (04/25/2025 6:06 AM CDT): NIDDM, on finerenon, amaryl, tradjenta. - Hold home PO diabetic meds while inpatient. Restart at discharge. - Diabetic diet, SSI Assessment & Plan (10/30/2022 9:59 AM MIXING TECHNICIAN): - A1c 7.6% 10/2022 - SSI while inpatient - CC diet when eating Elevated left ventricular end-diastolic pressure (LVEDP) 11/15/2019 Encounter for surgical after care following surgery of circulatory system 05/20/2019 Prostate cancer 09/10/2018 Assessment & Plan (10/27/2018 9:53 AM MIXING TECHNICIAN): Follows with urology, has his PSA monitored it is increasing, but still WNL 1.4 Assessment & Plan (09/22/2018 11:35 AM MIXING TECHNICIAN): Has close follow up with his oncologist. His PSA was slightly elevated on last check. Hyperlipidemia 09/21/2017 Assessment & Plan (06/30/2018 9:38 AM CDT): His last lipid panel was within acceptable range; he will continue on a high intensity statin. Assessment & Plan (09/21/2017 11:34 AM MIXING TECHNICIAN): Continue Lipitor 40 mg daily. Essential hypertension 07/20/2017 Assessment & Plan (10/30/2022 2:57 PM MIXING TECHNICIAN): - Tight BP goals post-procedure - Continue home medications as indicated by BP goals as above, staggering overnight for gentle BP control Assessment & Plan (10/27/2018 9:54 AM MIXING TECHNICIAN): Hypertension is unchanged. Dietary sodium restriction. Blood pressure will be reassessed in 4 weeks. Assessment & Plan (09/22/2018 11:38 AM MIXING TECHNICIAN): Hypertension remains elevated. He is increasing his [...] today Assessment & Plan (09/21/2017 11:33 AM MIXING TECHNICIAN): Blood pressure is well controlled today. Last visit we added HCTZ 12.5 mg daily. Continue current medications Assessment & Plan (08/10/2017 11:26 AM MIXING TECHNICIAN): Blood pressure is not controlled. Add hydrochlorothiazide 12.5 mg p.o. daily. He is compliant with medications but always add salt to food which I advised him not to do that. Assessment & Plan (07/20/2017 9:19 AM MIXING TECHNICIAN): Blood pressure remains uncontrolled. We will order renal Doppler ultrasound to rule out renal artery stenosis given the fact that he has peripheral vascular disease and coronary artery disease. I will increase amlodipine from 5-10 mg p.o. daily. If that does not control the blood pressure we will add hydrochlorothiazide 12.5 mg p.o. Daily. Coronary artery disease invo lving ute mountain coronary artery of ute mountain heart without angina pectoris 07/20/2017 Assessment & Plan (10/30/2022 9:58 AM MIXING TECHNICIAN): - Continue home medications as able - Maintained on Brilinta as an outpatient; held 1 week prior to OR - Will discuss with surgery team when to safely resume post-procedure Assessment & Plan (10/27/2018 9:59 AM MIXING TECHNICIAN): Coronary artery disease is improving with lifestyle modifications. Continue current treatment regimen. Cardiac status will be reassessed in 3 months. No chest pain. Minimal SOB. Continue asa, statin, brilinta Assessment & Plan (09/22/2018 11:36 AM MIXING TECHNICIAN): Coronary artery disease is unchanged. Regular aerobic [...] BB. Assessment & Plan (09/21/2017 11:33 AM MIXING TECHNICIAN): Continue aspirin, Brilinta, Toprol XL and atorvastatin. Assessment & Plan (08/10/2017 11:27 AM MIXING TECHNICIAN): Continue Brilinta and aspirin. Asymptomatic. Assessment & Plan (07/20/2017 9:19 AM MIXING TECHNICIAN): Continue aspirin, Brilinta, Lipitor , metoprolol PVD [...] plan. Assessment & Plan (10/27/2018 9:21 AM MIXING TECHNICIAN): S/P bilateral ALVA angioplasty; right EIA angioplasty/stent 11/21/14. S/P aortoiliac angioplasty/stent 05/28/09. Continues on asa, statin and brilinta Assessment & Plan (09/21/2017 11:34 AM MIXING TECHNICIAN): He follows up with vascular surgery at [facility] Assessment & Plan (08/10/2017 11:27 AM MIXING TECHNICIAN): Renal ultrasound suggest more than 60% stenosis in the right renal artery and infrarenal stenosis 50-70%. He follows up with Dr. Foley from vascular surgery at [facility] Assessment & Plan (07/20/2017 9:20 AM MIXING TECHNICIAN): Patient will follow up with Dr. Foley [...] placed -call urology back to determine plan Resolved Problems Problem Noted Date Diagnosed Date Resolved Date Dizzinesses 10/27/2018 02/09/2019 Assessment & Plan (10/27/2018 10:17 AM MIXING TECHNICIAN): Persistent dizziness. Has stopped caffeine intake. Has [...] implant or graft 6 02/09/2019 Atherosclerosis of ute mountain artery of extremity 04/15/20 16 02/09/2019 Assessment & Plan (09/22/2018 11:26 AM MIXING TECHNICIAN): 80% circumflex s/p RICHARD. Moderate 30 % LAD with bridging Impotence of organic origin 09/18/2015 02/09/2019 Urinary tract infection 01/18/201501/29 Incontinence 01/18/2015 02/09/2019 Stricture, urethra 07/31/2011 9 Overview (12/10/2017): Description: Dilation 06/09/11 Nocturia 11/28/2010 02/09/2019 Hypertension 05/16/2009 02/09/2019 Assessment & Plan (10/27/2018 10:11 AM MIXING TECHNICIAN): Hypertension is {improving/stable/worsenin}. {plan; hypertension for POC:[id number]} Blood pressure will be reassessed {plan; follow-up 2 weeks/4weeks/3months:[id number]}. Increase amolodipine to 10 mg Continue all [...] Encounters Date Type Department Care Team Description 04/24/2025 8:30 AM CDT - 04/24/2025 11:45 AM CDT Surgery [facility] Operating Room [address] [place] [address] Aniceto Foley MD ANGIOGRAM - HYBRID ROOM aorto iliac angiogram 04/24/2025 8:30 AM CDT Anesthesia Event [facility] Operating Room [address] [place] [address] Yuko Rodriguez MD Horton, Cheryl Renee Hill, NP 04/24/2025 6:23 AM CDT - 04/26/2025 11:35 AM CDT Hospital Encounter [facility] [address] [facility] [place] [address] Aniceto Foley MD PAD (peripheral artery disease) Discharge Disposition: Discharge to home or self care 04/21/2025 Telephone [facility] Medicine Vascular Surgery [address] [facility] Building [address] [place] [address] Aniceto Foley MD 04/05/2025 Telephone [facility] Cardiology [address] [place] [address] Kay Ward NP 03/28/2025 11:00 AM CDT Office Visit [facility] Medicine Oncology [address] [facility] [address] [place] [address] Chicho Clayton MD Prostate cancer (HCC) (Primary Dx) 03/28/2025 10:00 AM CDT Lab [facility] Medicine Oncology Lab [address] [facility] [facility] [address] [place] [address] Prostate cancer (HCC) 03/28/2025 9:45 AM CDT Lab [facility] Cancer [facility] - Lab Collection [address] [facility] Floor [address] [place] [address] Prostate cancer (HCC) 03/24/2025 Orders Only [facility] Medicine Surgery [address] [place] [address] 8th [place] [address] [place] [address] Aniceto Foley MD Atherosclerosis of ute mountain arteries of extremities with intermittent claudication, right leg (Primary Dx) 03/17/2025 12:15 PM CDT Pre-Admission Testing [facility] Pre Anesthesia Testing [facility] [place] [address] Preoperative testing (Primary Dx) 03/16/2025 11:59 PM CDT Anesthesia Event [facility] Operating Room [facility] [place] [phone] Carrie Silva PA 03/08/2025 10:15 AM CDT Office Visit [facility] Medicine Surgery [facility] 8th [place] [address] [place] [address] Aniceto Foley MD PVD (peripheral vascular disease) (Primary Dx); Atherosclerosis of ute mountain arteries of extremities with intermittent claudication, bilateral legs 03/08/2025 9:30 AM CDT Ancillary Procedure [facility] Vascular Lab at the [facility] Advanced Medicine [address] [facility] 8th [place] [address] [place] [address] Atherosclerosis of ute mountain arteries of extremities with intermittent claudication, bilateral legs 03/08/2025 7:49 AM CDT - 03/08/2025 11:59 PM CDT Hospital Encounter [facility] [address] [place] [address] PVD (peripheral vascular disease) Discharge Disposition: Discharge to home or self care 02/27/2025 Telephone [facility] Medical [facility] Cardiology [address] [place] [address] Kay Ward NP 02/07/2025 Telephone [facility] Cardiology [address] [place] [address] Kay Ward NP from Last 3 Months [...] INTRAOCULAR LENS IMPLANT Right 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 ANGIOGRAM - HYBRID ROOM 04/24/2025 Pelvis/Bilateral Procedure: ANGIOGRAM - HYBRID ROOM aorto iliac angiogram; Surgeon: Aniceto Foley MD; Location: [facility] OR POD 3; Service: Vascular; Laterality: Bilateral; Medical devices from this surgery are in the Medical Devices section. CARDIAC CATHETERIZATION 04/24/2025 N/A Procedure: Percutaneous Lithotripsy Shockwave; Surgeon: Aniceto Foley MD; Location: [facility] OR POD 3; Service: Vascular; Laterality: N/A; Medical devices from this surgery are in the Medical Devices section. Medical History Medical History Date Comments History [...] Answered Alcohol Use Standard Drinks/Week Comments Yes 4 (1 standard drink = 0.6 oz pur e alcohol) [facility] Utilities Answer Date Recorded In the past 12 months has th e electric, gas, oil, or water Goal Zero threatened to shut off services in your [...] often do you attend chur ch or restoration services? More than 4 times per year 11/11/2024 Do you belong to any clubs o r organizations such as jewish groups, unions, fraternal or athletic groups, or school groups? Yes 11/11/2024 How often do you attend meet ings of the clubs or organizations you belong to? 1 to 4 times per year 11/11/2024 Are you , , di vorced, , never , or living with a partner? 11/11/2024 Overall Financial Resource Strain (CARDIA) Answe r [...] any time in the past 12 m [facility], were you homeless or living in a care home (including now)? No 11/11/2024 AUDIT-C Answer Date Recorded Q1: How often do you have a drink containing alcohol? 4 or more times a week 04/24/2025 Q2: How many drinks containi ng alcohol do you have on a typical day when you are drinking? 1 or 2 Q3: How often do you have si x or more drinks on one occasion? Never 04/24/2025 Personal Safety Answer Date Recorded Have you ever been in or are you currently in a harmful physical or emotional relationship or is someone making you feel afraid or unsafe? Denies 04/24/2025 Sex and Gender Information Value Date Recorded Sex Assigned at Not on file Legal Sex Male 12:32 AM MIXING TECHNICIAN Gender Identity Not on file Sexual Orientation Choose not to disclose 2018 8:58 AM CDT Occupation Industry Job 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 Date retired Not on file Not on file Not on file Obstetrics History Last Filed Vital Signs Vital Sign Reading Time Taken Comments Blood Pressure 162/50 04/26/2025 8:02 AM CDT Pulse 89 04/26/2025 8:02 AM CDT Temperature 36.8 C (98.2 F) 04/26/2025 8:02 AM CDT Respiratory Rate 16 04/26/2025 8:02 AM CDT Oxygen Saturation 97% 04/26/2025 8:02 AM CDT Inhaled Oxygen Concentration - - Weight 74.8 kg (165 lb) 04/24/2025 3:12 PM CDT Height 162.6 cm (5' 4) 04/24/2025 3:12 PM CDT Body Mass Index 28.32 04/24/2025 3:12 PM CDT Plan of Treatment Health Maintenance Due Date Last Done Comments Albumin Creatinine Ratio, Urine 1950 Colon Cancer Screening-Colonoscopy 1950 Depression Screening 1950 Hepatitis C Screening 1950 Dilated Eye Exam 1949 Foot Exam 1949 Hepatitis B Screening 1967 Zoster Vaccine (1 of 2) 1999 Well Visit 65+ 2014 Covid-19 Vaccine (3 - 2023-2 5 season) 2024 11/25/2020, 11/01/2020 Influenza Vaccine (#1) 2025 , 05/31/2022, 06/25/2021, Additional history exists Hemoglobin A1C 09/17/2025 03/17/2025, 09/01, 03/24/2023, Additional history exists Lipid Panel 04/24/2026 04/24/2025, 03/01, 02/25/2024, Additional history exists eGFR 04/25/2026 04/25/2025, 04/01, 03/28/2025, Additional history exists Fall Risk Assessment 04/26/2026 04/26/2025 DTaP/Tdap/Td Vaccine (2 - Td or Tdap) 10/07/2030 10/07/2020 Pneumococcal vaccine 65+ Completed 11/22/2014, 10/30 Abdominal Aortic Aneurysm (A AA) Screen Completed 03/08/2025, 12/15/2023, 06/02/2023, Additional history exists Medical Devices Implanted Type Area Mate Fishing Vessel Device Identifier Shelf Expiration Date Model / Serial / Lot Other - See Comments-05/17/20 15 Implanted:2014 (Quantity not on file) Other - see comments Bladder Description:Bladder control Stent Stent Bilateral: Groin Description:Per pt 4-5 stent s Stent Stent N/A: Heart [employer] Sandra Express Ld Tandem Architecture 8mm 17mm 135cm Otw Premount [id number] - [id number] Implanted:Qty: 1 on 04/24/2025 by Aniceto Foley MD at [facility] Stent N/A: Infrarenal Aorta [employer] Sandra [id number] 10/12/2026 [id number] / / [id number] [employer] Stent Graft Endoprosthesis Reduced Profile Straight Heparin Coated Viabahn [id number] - [id number] - [id number] Implanted:Qty: 1 on 04/24/2025 by Aniceto Foley MD at [facility] Stent N/A: Infrarenal Aorta [employer] [id number] 08/05/2027 [id number] / [id number] / [employer] Stent Graft Endoprosthesis Reduced Profile Straight Heparin Coated Viabahn [id number] - [id number] - [id number] Implanted:Qty: 1 on 04/24/2025 by Aniceto Foley MD at [facility] Stent Right: Iliac [employer] [id number] 10/02/2027 [id number] / [id number] / [employer] Stent Graft Endoprosthesis Reduced Profile Straight Heparin Coated Viabahn [id number] - [id number] - [id number] Implanted:Qty: 1 on 04/24/2025 by Aniceto Foley MD at [facility] Stent Left: Iliac [employer] [id number] 07/31/2027 [id number] / [id number] / [employer] Stent Graft Endoprosthesis Reduced Profile Straight Heparin Coated Viabahn [id number] - [id number] - [id number] Implanted:Qty: 1 on 04/24/2025 by Aniceto Foley MD at [facility] Stent Right: External Iliac Artery [employer] [id number] 09/21/2027 [id number] / [id number] / [employer] Stent Graft Endoprosthesis Reduced Profile Straight Heparin Coated Viabahn [id number] - [id number] - [id number] Implanted:Qty: 1 on 04/24/2025 by Aniceto Foley MD at [facility] Stent Right: Iliac [employer] [id number] 11/07/2027 [id number] / [id number] / [employer] Device Vascular Closure Femoral Artery Bioabsorbable Dual Method Vascade 6-7fr Collagen [id number] - [id number] Implanted:Qty: 1 on 04/24/2025 by Arturo Hopkins MD at [facility] Vascular Closure Device Right: Groin [employer] [id number] 01/16/2027 [id number] [id number] / / [id number] [employer] Device Vascular Closure Femoral Artery Bioabsorbable Dual Method Vascade 6-7fr Collagen [id number] - [id number] Implanted:Qty: 1 on 04/24/2025 by Arturo Hopkins MD at [facility] Vascular Closure Device Left: Groin [employer] [id number] 01/16/2027 [id number]- [id number] / / Stent Right: Eye Artificail Urinary Sphincter-05/08/20 15 Implanted:2014 by Shawnee Mckinney MD (Quantity not on file) N/A: Urethra Description:05/08/2019 Placeme nt of artificial urinary sphincter with a 3.5 cm cuff and 61 to 70 cm pressure-regulating balloon. [facility] Sandra Vascu-Guard 8x.8cm Peripheral Patch Vascular Bovine Pericardium [id number] - [id number] Implanted:Qty: 1 on 10/30/2022 by Aniceto Foley MD at [facility] Right: Carotid [facility] Sandra [id number] 07/09/2023 [id number] / / [id number] [employer] Sandra Ams 800 Kit Accessory Sterile Disposable Latex Free Urinary [id number] - [id number] Implanted:Qty: 1 on 11/09/2024 by Kami Meneses MD at [facility] N/A: Urethra [employer] Sandra [id number] 03/09/2029 [id number] / / [id number] [employer] Sandra Cuff Urethral Ams 800 Inhibizone 3.5cm [id number] - [id number] Implanted:Qty: 1 on 11/09/2024 by Kami Meneses MD at [facility] N/A: Urethra [employer] Sandra [id number] 02/22/2026 [id number] / / [id number] [employer] Sandra Ams 800 Pressure Balloon Sphincter 61-70cu Cm Implant Urological [id number] - [id number] Implanted:Qty: 1 on 11/09/2024 by Kami Meneses MD at [facility] N/A: Abdomen [employer] Sandra [id number] 03/20/2029 [id number] / / [id number] [employer] Sandra Ams 800 Control Pump Sphincter Implant Urological Inhibizone [id number] - [id number] Implanted:Qty: 1 on 11/09/2024 by Kami Meneses MD at [facility] N/A: Scrotum [employer] Sandra [id number] 02/15/2026 [id number] / / [id number] Procedures Procedure Name Priority Date/Time Associated Diagnosis Comments POCT GLUCOSE DEVICE Routine 04/26/2025 8 :01 AM CDT POCT GLUCOSE DEVICE Routine 04/25/2025 8 :32 PM CDT POCT GLUCOSE DEVICE Routine 04/25/2025 5 :11 PM CDT POCT GLUCOSE DEVICE Routine 04/25/2025 1 1:30 AM CDT POCT GLUCOSE DEVICE Routine 04/25/2025 7 :30 AM CDT EGFR Routine 04/25/2025 1:25 AM CDT BASIC METABOLIC PANEL Routine 04/25/2025 1:25 AM CDT CBC WITHOUT DIFFERENTIAL Routine 04/25/2025 1:25 AM CDT POCT GLUCOSE DEVICE Routine 04/24/2025 8 :19 PM CDT POCT GLUCOSE DEVICE Routine 04/24/2025 4 :59 PM CDT LIPID PANEL STAT 04/24/2025 12:22 PM CDT EGFR STAT 04/24/2025 12:22 PM CDT BASIC METABOLIC PANEL STAT 04/24/2025 12:22 PM CDT CBC WITHOUT DIFFERENTIAL STAT 04/24/2025 12:22 PM CDT POCT GLUCOSE DEVICE Routine 04/24/2025 1 2:11 PM CDT CV HYBRID ROOM (DEFAULT ORDERABLE) Routine 04/24/2025 11:50 AM CDT PAD (peripheral artery disease) CV HYBRID ROOM (DEFAULT ORDERABLE) Routine 04/24/2025 11:50 AM CDT PAD (peripheral artery disease) PERCUTANEOUS CORONARY LITHROTRIPSY W/ PCI (+) 18119 Routine 04/24/2025 11:50 AM CDT PAD (peripheral artery disease) VASCULAR SURGERY PROCEDURE Routine 04/24/2025 11:50 AM CDT PAD (peripheral artery disease) POCT ACTIVATED CLOTTING TIME, LOW RANGE Routine 04/24/2025 11:25 AM CDT POCT ACTIVATED CLOTTING TIME, LOW RANGE Routine 04/24/2025 11:19 AM CDT POCT ACTIVATED CLOTTING TIME, LOW RANGE Routine 04/24/2025 10:59 AM CDT POCT ACTIVATED CLOTTING TIME, LOW RANGE Routine 04/24/2025 10:33 AM CDT POCT ACTIVATED CLOTTING TIME, LOW RANGE Routine 04/24/2025 10:00 AM CDT POCT ACTIVATED CLOTTING TIME, LOW RANGE Routine 04/24/2025 9:48 AM CDT POC BLOOD GAS AND CHEMISTRIES, ARTERIAL Routine 04/24/2025 9:41 AM CDT RI AN PROCEDURE PLACEHOLDER Routine 04/24/2025 9:20 AM CDT RI AN PROCEDURE PLACEHOLDER Routine 04/24/2025 9:19 AM CDT RI AN PROCEDURE PLACEHOLDER Routine 04/24/2025 9:18 AM CDT RI AN PROCEDURE PLACEHOLDER Routine 04/24/2025 8:50 AM CDT RI AN ELECTIVE ENDOTRACHEAL AIRWAY Routine 04/24/2025 8:50 AM CDT POCT GLUCOSE DEVICE Routine 04/24/2025 7 :26 AM CDT TYPE AND SCREEN STAT 04/24/2025 7:18 AM CDT PREPARE RBC Timed 04/24/2025 6:46 AM CDT DIFFERENTIAL AUTO Routine 03/28/2025 9:5 0 AM [...] Routine) 03/08/2025 9:29 AM CDT Atherosclerosis of [place] arteries of extremities with intermittent claudication, bilateral legs CTA ABDOMINAL AORTA AND BILATERAL ILIOFEMORAL RUNOFF Schedule Routine, Read Routine (OP Routine) 03/08/2025 8:53 AM CDT PVD (peripheral vascular disease) from Last 3 Months Results * POCT glucose (04/26/2025 8:01 AM CDT) Glucose, POC 151 70 - 199 mg/dL Blood 04/26/2025 8:01 AM CDT 04/26/2025 8:01 AM CDT us Aniceto Foley MD LAB POCT ORDERABLES - DEVICE Final Result Performing Organization Address [facility] Co de Phone Number [facility] [place] [address] * POCT glucose (04/25/2025 8:32 PM CDT) Glucose, POC 197 70 - 199 mg/dL Blood 04/25/2025 8:32 PM CDT 04/25/2025 8:32 PM CDT us Aniceto Foley MD LAB POCT ORDERABLES - DEVICE Final Result Performing Organization Address [facility] Co de Phone Number [facility] [place] [address] * POCT glucose (04/25/2025 5:11 PM CDT) Glucose, POC 160 70 - 199 mg/dL Comment:Glu2: RN/ Notified Glucose comment 1 Glu2: RN/MD Notified [facility] Blood 04/25/2025 5:11 PM CDT 04/25/2025 5:11 PM CDT us Aniceto Foley MD LAB POCT ORDERABLES - DEVICE Final Result Performing Organization Address [facility] Co de Phone Number [facility] [place] [address] * POCT glucose (04/25/2025 11:30 AM CDT) Glucose, POC 174 70 - 199 mg/dL Comment:Glu2: RN/ Notified Glucose comment 1 Glu2: RN/MD Notified [facility] Blood 04/25/2025 11:3 0 AM CDT 04/25/2025 11:30 AM CDT us Aniceto Foley MD LAB POCT ORDERABLES - DEVICE Final Result [facility] [place] [address] * POCT glucose (04/25/2025 7:30 AM CDT) [facility] Glucose, POC 121 70 - 199 mg/dL Comment:Glu2: RN/MD Notified Glucose comment 1 Glu2: RN/MD Notified [facility] Blood 04/25/2025 7:30 AM CDT 04/25/2025 7:30 AM CDT us Aniceto Foley MD LAB POCT ORDERABLES - DEVICE Final Result Performing Organization Address [facility] Co de Phone Number [facility] [place] [address] * (ABNORMAL) eGFR (04/25/2025 1:25 AM CDT) [facility] eGFR 54(L) >=60 mL/min/1. 73 m2 Comment: Interpretive Data [...] interpretive data was last reviewed 2021. Blood 04/25/2025 1:25 AM CDT 04/25/2025 1:51 AM CDT us Aniceto Foley MD LAB BLOOD ORDERABLES Final Re sult Performing Organization Address [facility] de Phone Number [facility] [place] [address] * (ABNORMAL) CBC without differential (04/25/2025 1:25 AM CDT) [facility] WBC 7.83 3.80 - 9.90 K/cumm Hgb 9.7(L) 13.0 - 17.5 g/dL [facility] Hct 29.1(L) 38.9 - 50.3 % [facility] Plt 151 150 - 400 K/cumm [facility] MPV 11.1 9.1 - 12.3 fL [facility] RBC 3.13(L) 4.30 - 5.80 M/cumm [facility] MCV 93.0 81.3 - 96.4 fL [facility] MCH 31.0 27.1 - 33.3 pg [facility] MCHC 33.3 32.3 - 35.7 g/dL [facility] RDW CV 15.3(H) 11.1 - 14.9 % [facility] RDW SD 51.3(H) 35.7 - 48.1 fL [facility] NRBC abs 0.00 0.00 - 0.01 K/cumm [facility] Blood 04/25/2025 1:25 AM CDT 04/25/2025 1:53 AM CDT Aniceto Foley MD LAB BLOOD ORDERABLES Final Re sult Performing Organization Address [facility] Co de Phone Number [facility] [place] [address] * (ABNORMAL) Basic metabolic panel (04/25/2025 1:25 AM CDT) [facility] Sodium 145 135 - 145 mmol/L Potassium, pl 4.4 3.3 - 4.9 mmol/L [facility] Chloride 111(H) 97 - 110 mmol/L [facility] CO2 27 22 - 32 mmol/L [facility] Anion gap 7 2 - 15 mmol/L [facility] BUN 27(H) 6 - 25 mg/dL [facility] Creatinine 1.36(H) 0.80 - 1.30 mg/dL [facility] Glucose 107 70 - 199 mg/dL [facility] Comment: Interpretive Data Fasting glucose >/= [...] interpretive data was last revised 2022. Calcium 10.1 8.5 - 10.3 mg/dL [facility] Blood 04/25/2025 1:25 AM CDT 04/25/2025 1:51 AM CDT us Aniceto Foley MD LAB BLOOD ORDERABLES Final Re sult [facility] [place] [address] * POCT glucose (04/24/2025 8:19 PM CDT) Glucose, POC 112 70 - 199 mg/dL Blood 04/24/2025 8:19 PM CDT 04/24/2025 8:19 PM CDT us Aniceto Foley MD LAB POCT ORDERABLES - DEVICE Final Result [facility] [place] [address] * POCT glucose (04/24/2025 4:59 PM CDT) Glucose, POC 136 70 - 199 mg/dL Comment:Glu2: RN/ Notified Glucose comment 1 Glu2: RN/ Notified [facility] Blood 04/24/2025 4:59 PM CDT 04/24/2025 4:59 PM CDT us Aniceto Foley MD LAB POCT ORDERABLES - DEVICE Final Result Performing Organization Address [facility] Co de Phone Number [facility] [place] [address] * (ABNORMAL) eGFR (04/24/2025 12:22 PM CDT) eGFR 58(L) >=60 mL/min/1. 73 m2 Comment: Interpretive Data [...] interpretive data was last reviewed 2021. Blood 04/24/2025 12:2 2 PM CDT 04/24/2025 12:39 PM CDT us Aniceto Foley MD LAB BLOOD ORDERABLES Final Re sult Performing Organization Address [facility] Co de Phone Number [facility] [place] [address] * (ABNORMAL) CBC without differential (04/24/2025 12:22 PM CDT) WBC 4.97 3.80 - 9.90 K/cumm Hgb 9.4(L) 13.0 - 17.5 g/dL [facility] Hct 28.9(L) 38.9 - 50.3 % [facility] Plt 141(L) 150 - 400 K/cumm [facility] MPV 11.2 9.1 - 12.3 fL [facility] RBC 3.09(L) 4.30 - 5.80 M/cumm [facility] MCV 93.5 81.3 - 96.4 fL [facility] MCH 30.4 27.1 - 33.3 pg [facility] MCHC 32.5 32.3 - 35.7 g/dL [facility] RDW CV 15.2(H) 11.1 - 14.9 % [facility] RDW SD 51.5(H) 35.7 - 48.1 fL [facility] NRBC abs 0.00 0.00 - 0.01 K/cumm [facility] Blood 04/24/2025 12:2 2 PM CDT 04/24/2025 12:39 PM CDT Aniceto Foley MD LAB BLOOD ORDERABLES Final Re sult [facility] Department [place] [address] * Lipid panel (04/24/2025 12:22 PM CDT) Cholesterol 135 30 - 199 mg/dL Comment: Interpretive Data [...] Data was last revised on 2018. Triglycerides 75 <=149 mg/dL [facility] Comment: Interpretive Data Ages < or [...] Data was last revised on 2018. HDL 42 >=40 mg/dL [facility] Comment: Interpretive Data Ages < or [...] was last revised on 2018. LDL, calculated 78 <=129 mg/dL [facility] Comment: Interpretive Data Ages < or = 19 years Acceptable: <110 mg/dL Borderline high: 110-129 mg/dL High: >or= 130 mg/dL Ages > or = 20 years Optimal: <100 mg/dL Near optimal: 100-129 mg/dL Borderline high: 130-159 mg/dL High: >160 mg/dL Calculated using the Juan LDL-C estimating equation. This equation was implemented on 2024. Prior to this date LDL-C was estimated using the Friedewald equation. Literature References: 1. Expert Panel on Integrated Guidelines for Cardiovascular Health and Risk Reduction in Children and Adolescents. Pediatrics 2011;128:S213 2. NCEP Expert Panel. Circulation 2004;110:227 3. Juan Martinez et al. BENJAMIN Cardiol. 2020 December 29;5(5):540-548. doi: 10.1001/jamacardio.2020.0013 Current Interpretive Data was last revised on 2024. Non-HDL Cholesterol 93 mg/dL [facility] Comment: Interpretive Data Ages < or [...] last revised on 2018. Chol/HDL ratio 3 [facility] Blood 04/24/2025 12:2 2 PM CDT 04/24/2025 12:39 PM CDT Aniceto Foley MD LAB BLOOD ORDERABLES Final Re sult [facility] Department [place] [address] * (ABNORMAL) Basic metabolic panel (04/24/2025 12:22 PM CDT) Sodium 140 135 - 145 mmol/L Potassium, pl 4.3 3.3 - 4.9 mmol/L [facility] Chloride 108 97 - 110 mmol/L [facility] CO2 26 22 - 32 mmol/L [facility] Anion gap 6 2 - 15 mmol/L [facility] BUN 32(H) 6 - 25 mg/dL [facility] Creatinine 1.29 0.80 - 1.30 mg/dL [facility] Glucose 117 70 - 199 mg/dL [facility] Comment: Interpretive Data Fasting glucose >/= [...] interpretive data was last revised 2022. Calcium 9.9 8.5 - 10.3 mg/dL [facility] Blood 04/24/2025 12:2 2 PM CDT 04/24/2025 12:39 PM CDT us Aniceto Foley MD LAB BLOOD ORDERABLES Final Re sult Performing Organization Address City/[facility]/ZIP Co de Phone Number [facility] [place] [address] * POCT glucose (04/24/2025 12:11 PM CDT) Glucose, POC 121 70 - 199 mg/dL Blood 04/24/2025 12:1 1 PM CDT 04/24/2025 12:11 PM CDT us Aniceto Foley MD LAB POCT ORDERABLES - DEVICE Final Result Performing Organization Address [facility] Co de Phone Number [facility] [place] [address] * ANGIOGRAM - HYBRID ROOM, PLACEMENT STENT - ILIAC ARTERY - HYBRID ROOM (04/24/2025 11:50 AM CDT) Anatomical Region Laterality Modality X-Ray Angiograph y Narrative 04/24/2025 3:00 PM CDT Please see OpNote for result. us Aniceto Foley MD SURGICAL CASE ORDERS Final Re sult * ANGIOPLASTY BALLOON/STENT PLACEMENT, PERCUTANEOUS CORONARY LITHROTRIPSY W/ PCI (+) [id number] (04/24/2025 11:50 AM CDT) Anatomical Region Laterality Modality X-Ray Angiograph y Narrative 04/24/2025 3:00 PM CDT Please see OpNote for result. us Aniceto oFley MD CV CARDIAC CATH PROCEDURES Fi nal Result * POCT Activated clotting time, low range (04/24/2025 11:25 AM CDT) ACT 133 123 - 168 sec POC Device Number [id number] [facility] Blood 04/24/2025 11:2 5 AM CDT 04/24/2025 11:25 AM CDT us Aniceto Foley MD LAB POCT ORDERABLES - DEVICE Final Result Performing Organization Address [facility] Co de Phone Number [facility] [place] [address] * (ABNORMAL) POCT Activated clotting time, low range (04/24/2025 11:19 AM CDT) ACT 253(H) 123 - 168 sec POC Device Number [id number] [facility] Blood 04/24/2025 11:1 9 AM CDT 04/24/2025 11:19 AM CDT us Aniceto Foley MD LAB POCT ORDERABLES - DEVICE Final Result Performing Organization Address [facility] Co de Phone Number [facility] [place] [address] * (ABNORMAL) POCT Activated clotting time, low range (04/24/2025 10:59 AM CDT) ACT 265(H) 123 - 168 sec POC Device Number [id number] [facility] Blood 04/24/2025 10:5 9 AM CDT 04/24/2025 10:59 AM CDT us Aniceto Foley MD LAB POCT ORDERABLES - DEVICE Final Result Performing Organization Address City/[facility]/ZIP Co de Phone Number [facility] [place] [address] * (ABNORMAL) POCT Activated clotting time, low range (04/24/2025 10:33 AM CDT) ACT 253(H) 123 - 168 sec POC Device Number [id number] [facility] Blood 04/24/2025 10:3 3 AM CDT 04/24/2025 10:33 AM CDT us Aniceto Foley MD LAB POCT ORDERABLES - DEVICE Final Result Performing Organization Address [facility] [place] [address] * (ABNORMAL) POCT Activated clotting time, low range (04/24/2025 10:00 AM CDT) ACT 260(H) 123 - 168 sec POC Device Number [id number] [facility] Blood 04/24/2025 10:0 0 AM CDT 04/24/2025 10:00 AM CDT us Aniceto Foley MD LAB POCT ORDERABLES - DEVICE Final Result Performing Organization Address [facility] de Phone Number [facility] [place] [address] * (ABNORMAL) POCT Activated clotting time, low range (04/24/2025 9:48 AM CDT) ACT 213(H) 123 - 168 sec POC Device Number [id number] [facility] Blood 04/24/2025 9:48 AM CDT 04/24/2025 9:48 AM CDT us Aniceto Foley MD LAB POCT ORDERABLES - DEVICE Final Result Performing Organization Address [facility] Co de Phone Number [facility] [place] [address] * (ABNORMAL) POC Blood Gas and Chemistries, Arterial - (04/24/2025 9:41 AM CDT) pH, Art POC 7.45 7.35 - 7.45 pCO2, Art POC 36 35 - 45 mmHg [facility] pO2, Art POC 190(H) 83 - 108 mmHg [facility] Na, POC 141 135 - 145 mmol/L [facility] K POC 4.5 3.3 - 4.9 mmol/L [facility] Comment: Interpretive Data Not all point of care methods assess for hemolysis. Confirm with instrument and retest K+ if not consistent with clinical signs and symptoms. Current Interpretive Data was last revised on 2023. Cl, POC 113(H) 97 - 110 mmol/L [facility] Ionized Ca, POC 5.78(H) 4.50 - 5.10 mg/dL [facility] Glucose, POC 136 70 - 199 mg/dL [facility] Lactate POC 1.1 0.7 - 2.0 mmol/L [facility] SO2 (samuel) arterial 99(H) 90 - 95 % [facility] Base excess, POC 1.1 mmol/L [facility] HCO3, Art POC 26 20 - 30 mmol/L [facility] Hct, POC 31.0(L) 41.4 - 51.6 % [facility] Total Hb, POC 10.3(L) 13.8 - 17.2 g/dL [facility] Blood 04/24/2025 9:41 AM CDT 04/24/2025 9:41 AM CDT us Aniceto Foley MD LAB POCT ORDERABLES - DEVICE Final Result [facility] Department [place] [address] * RI AN PROCEDURE PLACEHOLDER (04/24/2025 9:20 AM CDT) Narrative Jorge Sánchez CRNA - 04/24/2025 9:20 AM CDT Jorge Sánchez CRNA 04/24/2025 9:21 AM Peripheral IV Catheter Patient location: OR Staff: Placed by: THIRD MATE: Jorge Sánchez CRNA Preprocedure prep: Prep solution: chlorhexadine PPE: gloves and provider hat/mask PIV line: Laterality: right Site: forearm Catheter size: 18 g Technique: anatomical landmarks and direct visualization Procedure details: good blood return and occlusive dressing applied Number of attempts: 2 Other sites attempted: right ac Assessment: Events: patient tolerated procedure well with no complications Yuko Rodriguez MD ANESTHESIA ORDERABLES Fi nal Result * RI AN PROCEDURE PLACEHOLDER (04/24/2025 9:19 AM CDT) Jorge Sullivan CRNA - 04/24/2025 9:19 AM CDT Jorge Sánchez CRNA 04/24/2025 9:20 AM Peripheral IV Catheter Patient location: OR Staff: Placed by: Other staff: Yonas Meredith Preprocedure prep: Prep solution: chlorhexadine PPE: gloves and provider hat/mask PIV line: Laterality: left Site: hand Catheter size: 16 g Technique: anatomical landmarks, direct visualization and palpatation Number of attempts: 1 Assessment: Events: patient tolerated procedure well with no complications Result Dayana Rodriguez MD ANESTHESIA ORDERABLES Fi nal Result * RI AN PROCEDURE PLACEHOLDER (04/24/2025 9:18 AM CDT) Jorge Sullivan CRNA - 04/24/2025 9:18 AM CDT Jorge Sánchez CRNA 04/24/2025 9:19 AM Arterial Line Patient location: OR Indication: continuous blood pressure monitoring and blood sampling needed Ultrasound assisted: yes Staff: Placed by: THIRD MATE: Jorge Sánchez CRNA Other staff: Yonas Meredith Procedure prep: Prep solution: chlorhexadine/alcohol Prep: provider hat/mask and sterile gloves Arterial line: Catheter size: 20 gauge Catheter length: 1 and 3/4 inch Catheter type: wire-guided catheter Laterality: left Site: radial artery Line secured: Tegaderm Results: good waveform Number of attempts: 1 Assessment: Events: patient tolerated procedure well with no complications us Yuko Rodriguez MD ANESTHESIA ORDERABLES Fi nal Result * RI AN ELECTIVE ENDOTRACHEAL AIRWAY, RI AN PROCEDURE PLACEHOLDER (04/24/2025 8:50 AM CDT) Narrative Jorge Sánchez CRNA - 04/24/2025 8:50 AM CDT Jorge Sánchez CRNA 04/24/2025 8:53 AM Airway Patient location: OR Date/time: 04/24/2025 8:47 AM Indications for airway management: anesthesia Difficult airway: no Staff: Supervising provider: Yuko Rodriguez MD Placed by: Anesthesiologist: Yuko Rdoriguez MD Other staff: Yonas Meredith Emergent airway documentation: Risks and benefits discussed: yes Consent obtained: yes Consent given by: patient Airway prep: Preoxygenated: yes Patient position: sniffing Mask difficulty assessment: 1 - vent by mask Sedation level during airway: GA Final airway details: Final airway type: endotracheal airway Tube type: ETT ETT size: 8.0 mm Cuffed: yes Technique used for successful ETT placement: direct laryngoscopy Blade size: 4 Cormack-Lehane (direct): grade IIb - view of arytenoids or posterior of glottis only Cuff inflated with: air ETT to lips: 24 cm Placement verified by: auscultation Airway secured with: silk tape Number of attempts: 2 Additional comments: 2 attempts. First by Yonas Meredith (video laryngoscope camera went out mid intubation and light wouldn't go back on). DL with difficult visualization. Michael placed ETT w Mac 4 blade w grade 2b view us Yuko Rodriguez MD ANESTHESIA ORDERABLES Fi nal Result * POCT glucose (04/24/2025 7:26 AM CDT) Glucose, POC 135 70 - 199 mg/dL Blood 04/24/2025 7:26 AM CDT 04/24/2025 7:26 AM CDT us Aniceto Foley MD LAB POCT ORDERABLES - DEVICE Final Result [facility] [place] [address] * Type and screen (04/24/2025 7:18 AM CDT) Ashlee, indirect Negative ABO Rh A Negative [facility] Blood 04/24/2025 7:18 AM CDT 04/24/2025 7:31 AM CDT Narrative [facility] - 04/24/2025 8:34 AM CDT Has the patient had Daratumumab or Isatuximab in the past 6 months?->Unknown Aniceto Foley MD LAB BLOOD BANK TEST ORDERABLE S Final Result Performing Organization Address City/[facility]/ZIP Co de Phone Number [facility] [place] [address] * Prepare RBC: 2 Units (04/24/2025 6:46 AM CDT) Product code [id number] [facility] Unit Number [id number] 3-M [facility] Product Blood Type ANEG [facility] Dispense Status RETURNED [facility] Product code [id number] Unit Number [id number] 5-D [facility] Product Blood Type ANEG [facility] Dispense Status RETURNED [facility] Blood 04/24/2025 6:46 AM CDT 04/24/2025 6:46 AM CDT Narrative [facility] - 04/24/2025 11:58 AM CDT Specify Procedure:->Vascular surgery Are special requirements needed? (All products are leukoreduced and CMV- safe)- >No Date required:-[id number] LRRBC # of [id number] Reasons:-Hold for procedure (specify procedure)} Aniceto Foley MD BLOOD BANK PRODUCT ORDERABLES Final Result Performing Organization Address City/[facility]/ZIP Co de Phone Number [facility] [place] [address] * Differential, auto (03/28/2025 9:50 AM CDT) Pathologist [facility] Neutrophil abs 4.37 1.50 - 6.50 K/cumm Comment:Testing performed by : [facility], [address] [place], [place] [id number] Lymphocyte abs 1.46 0.80 - 3.30 K/cumm [facility] Comment:Testing performed by : [facility], [address] [place], [place] [id number] Monocyte abs 0.50 0.20 - 0.80 K/cumm [facility] Comment:Testing performed by : [facility], [address] [place] [address] Eosinophil abs 0.15 0.00 - 0.50 K/cumm [facility] Comment:Testing performed by : [facility], [address] [place], [place] [id number] Basophil abs 0.04 0.00 - 0.10 K/cumm [facility] Comment:Testing performed by : [facility], [address] [place], [place] [id number] Neutrophil pct 67.0 % [facility] Comment: Interpretive Data Percent cell count reference ranges are not reported, since discordance with absolute values may lead to misinterpretation of CBC data. Current Interpretive Data was last revised on 2017. Testing performed by: [facility], [address] [place] [address] Lymphocyte pct 22.4 % [facility] Comment: Interpretive Data Percent cell count reference ranges are not reported, since discordance with absolute values may lead to misinterpretation of CBC data. Current Interpretive Data was last revised on 2017. Testing performed by: [facility], [address] [place] [address] Monocyte pct 7.7 % [facility] Comment: Interpretive Data Percent cell count reference ranges are not reported, since discordance with absolute values may lead to misinterpretation of CBC data. Current Interpretive Data was last revised on 2017. Testing performed by: [facility], [address] [place], [place] [id number] Eosinophil pct 2.3 % [facility] Comment: Interpretive Data Percent cell count reference ranges are not reported, since discordance with absolute values may lead to misinterpretation of CBC data. Current Interpretive Data was last revised on 2017. Testing performed by: [facility], [address] [place] [id number] Basophil pct 0.6 % [facility] Comment: Interpretive Data Percent cell count reference ranges are not reported, since discordance with absolute values may lead to misinterpretation of CBC data. Current Interpretive Data was last revised on 2017. Testing performed by: [facility], [address] [place] [address] Blood 03/28/2025 9:50 AM CDT 03/28/2025 9:52 AM CDT us Chicho Clayton MD LAB BLOOD ORDERABLES Final Resul t [facility] Department [place] [address] * (ABNORMAL) CBC with auto differential (03/28/2025 9:50 AM CDT) WBC 6.53 3.80 - 9.90 K/cumm Comment:Testing performed by : [facility], [address] [place] [address] Hgb 11.1(L) 13.0 - 17.5 g/dL [facility] Comment:Testing performed by : [facility], [address] [place] [address] Hct 32.5(L) 38.9 - 50.3 % [facility] Comment:Testing performed by : [facility], [address] [place] [address] Plt 162 150 - 400 K/cumm [facility] Comment:Testing performed by : [facility], [address] [place] [address] MPV 8.3 6.8 - 10.4 fL [facility] Comment:Testing performed by : [facility], [address] [place] [address] RBC 3.50(L) 4.30 - 5.80 M/cumm [facility] Comment:Testing performed by : [facility], [address] [place] [address] MCV 92.8 81.3 - 96.4 fL [facility] Comment:Testing performed by : [facility], [address] [place] [address] MCH 31.6 27.1 - 33.3 pg [facility] Comment:Testing performed by : [facility], [address] [place] [address] MCHC 34.0 32.3 - 35.7 g/dL [facility] Comment:Testing performed by : [facility], [address] [place] [address] RDW CV 16.1(H) 11.1 - 14.9 % [facility] Comment:Testing performed by : [facility], [address] [place] [address] NRBC abs 0.00 0.00 - 0.01 K/cumm [facility] Comment:Testing performed by : [facility], [address] [place] [address] Blood 03/28/2025 9:50 AM CDT 03/28/2025 9:52 AM CDT us Chicho Clayton MD LAB BLOOD ORDERABLES Final Resul t [facility] Department [place] [address] * (ABNORMAL) eGFR (03/28/2025 9:50 AM CDT) [...] ORDERABLES Final Resul t Performing Organization Address [facility] de Phone Number [facility] [place] [address] * (ABNORMAL) PSA diagnostic (03/28/2025 9:50 AM [...] ORDERABLES Final Resul t Performing Organization Address [facility] de Phone Number [facility] [place] [address] * Lactate dehydrogenase (LD) (03/28/2025 9:50 AM CDT) Lactate dehydrogenase (LDH) 118 100 - 250 Units/L Blood 03/28/2025 9:50 AM CDT 03/28/2025 9:53 AM CDT us Chicho Clayton MD LAB BLOOD ORDERABLES Final Resul t [facility] Department [place] [address] * (ABNORMAL) Comprehensive metabolic panel (03/28/2025 9:50 AM CDT) Pathologist [facility] Sodium 141 135 - 145 mmol/L Potassium, pl 4.8 3.3 - 4.9 mmol/L [facility] Chloride 109 97 - 110 mmol/L [facility] CO2 26 22 - 32 mmol/L [facility] Anion gap 6 2 - 15 mmol/L [facility] BUN 35(H) 6 - 25 mg/dL [facility] Creatinine 1.53(H) 0.80 - 1.30 mg/dL [facility] Glucose 163 70 - 199 mg/dL [facility] Comment: Interpretive Data Fasting glucose >/= [...] 2022. Calcium 10.5(H) 8.5 - 10.3 mg/dL [facility] Bilirubin, total 0.3 0.1 - 1.2 mg/dL [facility] Protein, pl 6.7 6.5 - 8.5 g/dL [facility] Albumin 3.7 3.5 - 5.0 g/dL [facility] Alk phos 75 40 - 130 Units/L [facility] ALT 19 7 - 55 Units/L [facility] AST 18 10 - 50 Units/L [facility] Blood 03/28/2025 9:50 AM CDT 03/28/2025 9:53 AM CDT us Chicho Clayton MD LAB BLOOD ORDERABLES Final Resul t Performing Organization Address City/[facility]/ZIP Co de Phone Number [facility] Department of [place] [address] * (ABNORMAL) eGFR (03/17/2025 1:05 PM CDT) [...] NP LAB BLOOD ORDERABLES Fi nal Result [facility] [address] Department [place] [address] * Differential, auto (03/17/2025 1:05 PM CDT) Neutrophil abs 5.18 1.50 - 6.50 K/cumm Imm gran abs 0.10 0.00 - 0.10 K/cumm [facility] Lymphocyte abs 1.75 0.80 - 3.30 K/cumm [facility] Monocyte abs 0.65 0.20 - 0.80 K/cumm [facility] Eosinophil abs 0.14 0.00 - 0.50 K/cumm [facility] Basophil abs 0.05 0.00 - 0.10 K/cumm [facility] Neutrophil pct 65.8 % [facility] Comment: Interpretive Data Percent cell count reference ranges are not reported, since discordance with absolute values may lead to misinterpretation of CBC data. Current Interpretive Data was last revised on 2017. Imm gran pct 1.3 % [facility] Comment: Interpretive Data Percent cell count reference ranges are not reported, since discordance with absolute values may lead to misinterpretation of CBC data. Current Interpretive Data was last revised on 2017. Lymphocyte pct 22.2 % [facility] Comment: Interpretive Data Percent cell count reference ranges are not reported, since discordance with absolute values may lead to misinterpretation of CBC data. Current Interpretive Data was last revised on 2017. Monocyte pct 8.3 % [facility] Comment: Interpretive Data Percent cell count reference ranges are not reported, since discordance with absolute values may lead to misinterpretation of CBC data. Current Interpretive Data was last revised on 2017. Eosinophil pct 1.8 % [facility] Comment: Interpretive Data Percent cell count reference ranges are not reported, since discordance with absolute values may lead to misinterpretation of CBC data. Current Interpretive Data was last revised on 2017. Basophil pct 0.6 % [facility] Comment: Interpretive Data Percent cell count reference ranges are not reported, since discordance with absolute values may lead to misinterpretation of CBC data. Current Interpretive Data was last revised on 2017. Blood 03/17/2025 1:05 PM CDT 03/17/2025 1:05 PM CDT Sagrario Fernandez SEED CORN PRODUCTION MANAGER LAB BLOOD ORDERABLES Fi nal Result Performing Organization Address [facility] de Phone Number [facility] [address] [place] [address] * (ABNORMAL) CBC with auto differential (03/17/2025 1:05 PM CDT) [facility] WBC 7.87 3.80 - 9.90 K/cumm Hgb 11.5(L) 13.0 - 17.5 g/dL [facility] Hct 35.4(L) 38.9 - 50.3 % [facility] Plt 174 150 - 400 K/cumm [facility] MPV 10.8 9.1 - 12.3 fL [facility] RBC 3.72(L) 4.30 - 5.80 M/cumm [facility] MCV 95.2 81.3 - 96.4 fL [facility] MCH 30.9 27.1 - 33.3 pg [facility] MCHC 32.5 32.3 - 35.7 g/dL [facility] RDW CV 14.6 11.1 - 14.9 % [facility] RDW SD 50.9(H) 35.7 - 48.1 fL [facility] NRBC abs 0.00 0.00 - 0.01 K/cumm [facility] Blood 03/17/2025 1:05 PM CDT 03/17/2025 1:05 PM CDT Sagrario Fernandez SEED CORN PRODUCTION MANAGER LAB BLOOD ORDERABLES Fi nal Result Performing Organization Address [facility]/ZIP Co de Phone Number [facility] [address] [place] [address] * aPTT (03/17/2025 1:05 PM CDT) [facility] aPTT 34 28 - 38 sec Comment: Interpretive Data Heparin therapeutic range: 66.0 - 100.0 seconds. Range based on correlation with therapeutic heparin activity range of 0.3 - 0.7 Units/mL. Current interpretive data was last revised on 2023. Blood 03/17/2025 1:05 PM CDT 03/17/2025 1:05 PM CDT Sagrario Fernandez NP LAB BLOOD ORDERABLES Fi nal Result Performing Organization Address [facility] de Phone Number [facility] [address] [facility] [place] [address] * Protime-INR (03/17/2025 1:05 PM CDT) PT 10.7 9.7 - 13.0 sec INR 0.99 0.90 - 1.20 [facility] Comment: Interpretive data Oral anticoagulant therapeutic ranges: Venous thromboembolism prophylaxis or treatment: 2.0-3.0 CARDIOLOGY Standard range: 2.0-3.0 High-intensity range: 2.5-3.5 Refer to indication-specific guidelines for appropriate target ranges for prosthetic heart valve replacement. Current interpretive data was last revised on 2019. Blood 03/17/2025 1:05 PM CDT 03/17/2025 1:05 PM CDT Sagrario Fernandez NP LAB BLOOD ORDERABLES Fi nal Result Performing Organization Address [facility] de Phone Number [facility] [address] [facility] [place] [address] * (ABNORMAL) Hemoglobin A1c (03/17/2025 1:05 PM CDT) Hgb A1C 6.7(H) 4.0 - 5.6 % Estimated Average Glucose 146 mg/dL [facility] Comment: The ADA recommends reporting an estimated Average Glucose (eAG) with all Hemoglobin A1c results using the equation derived from a study of 507 normal and diabetic adults. Minority populations were underrepresented and children were not included. (Diabetes Care 31:7847-8680, 2008). The eAG is not equivalent to a fasting glucose. Blood 03/17/2025 1:05 PM CDT 03/17/2025 1:05 PM CDT Sagrario Fernandez NP LAB BLOOD ORDERABLES Fi nal Result Performing Organization Address City/[facility]/ZIP Co de Phone Number [facility] [address] [place] [address] * (ABNORMAL) Basic metabolic panel (03/17/2025 1:05 PM CDT) [facility] Sodium 139 135 - 145 mmol/L Potassium, pl 4.3 3.3 - 4.9 mmol/L [facility] Chloride 105 97 - 110 mmol/L [facility] CO2 23 22 - 32 mmol/L [facility] Anion gap 11 2 - 15 mmol/L [facility] BUN 35(H) 6 - 25 mg/dL [facility] Creatinine 1.31(H) 0.80 - 1.30 mg/dL [facility] Glucose 76 70 - 199 mg/dL [facility] Comment: Interpretive Data Fasting glucose >/= 126 [...] 2022. Calcium 10.9(H) 8.5 - 10.3 mg/dL [facility] Blood 03/17/2025 1:05 PM CDT 03/17/2025 1:05 PM CDT Sagrario Fernandez SEED CORN PRODUCTION MANAGER LAB BLOOD ORDERABLES Fi nal Result Performing Organization Address City/[facility]/ZIP Co de Phone Number [facility] [address] [place] [address] * Type and screen (03/17/2025 1:04 PM CDT) ABO Rh A Negative Ashlee, indirect Negative [facility] Blood 03/17/2025 1:04 PM CDT 03/17/2025 1:25 PM CDT Narrative [facility] - 03/17/2025 2:11 PM CDT Is this test being ordered in advance for a procedure?->Yes Expected date of procedure:->04/03/25 Has the patient been transfused in the past 3 months?->No Sagrario Fernandez NP LAB BLOOD BANK TEST ORD ERABLES Final Result Performing Organization Address City/[facility]/ZIP Co de Phone Number [facility] [address] Department [place] [address] * ECG 12 lead (03/17/2025 12:53 PM CDT) 03/17/2025 12:5 3 PM CDT Narrative [facility] - 03/19/2025 4:45 PM CDT Vent Rate: 60 bpm RR Interval: 997 msec RI Interval: 219 msec QRS Duration: 145 msec QT Interval: 381 msec QTC Interval: 381 msec P-R-T [place]: 46 - -19 - 37 degrees IMPRESSION: SINUS RHYTHM WITH FIRST DEGREE AV BLOCK INTRAVENTRICULAR CONDUCTION DELAY ABNORMAL ECG Electronically Signed By: Casimiro Boggs [facility] Card Sagrario Fernandez NP ECG ORDERABLES Final R esult [facility] Black Raven and Stag [facility] * US Arterial Doppler Lower Extremity Bilateral (03/08/2025 9:29 AM CDT) Anatomical Region Laterality Modality Vascular Bilateral Ultrasound 03/08/2025 9:06 AM CDT Narrative 03/08/2025 9:07 PM CDT [facility] - Department of Vascular Surgery, Vascular Laboratory [address] [place] [address] Lower Extremity Arterial Doppler Report Patient Name: RIVERA FREEMAN : 1950 Study Date: 03/08/2025 9:06:00 AM Gender: M Tech: Jay Hutson RVT Location: [facility] Provider: ANICETO FOLEY Quality: Adequate Order Provider: ANICETO FOLEY PROCEDURES: Arterial Report: Bilateral lower extremity arterial Doppler exam at rest. 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 MEASUREMENTS: Right Value Units Left Value Units Rt Brachial Pressure 149 mmHg Lt Brachial Pressure 147 mmHg Rt PULL TAB DEALER Pressure 62 mmHg Lt PULL TAB DEALER Pressure 121 mmHg Rt DPA Pressure 50 mmHg Lt DPA Pressure 97 mmHg Rt 1st Digit Pressure 31 mmHg Lt 1st Digit Pressure 62 mmHg Rt PT TORREY Resting 0.42 Lt PT TORREY Resting 0.81 Rt AT TORREY Resting 0.34 Lt AT TORREY Resting 0.65 Rt Digit/Arm Index 0.21 Lt Digit/Arm Index 0.42 Right Value Units Left Value Units FINDINGS: Performing Membership Assistant: Jay Hutson RVT. Right Common Femoral Artery [...] Procedure Note Aniceto Foley MD - 03/08/2025 [facility] - Department of Vascular Surgery,Vascular Laboratory [address] [place] [address] Lower Extremity Arterial Doppler Report Patient Name: RIVERA FREEMAN : 1950 Study Date: 03/08/2025 9:06:00 AM Gender: M Tech: Jay Hutson RVT Location: [facility] Provider: ANICETO FOLEY Quality: Adequate Order Provider: ANICETO FOLEY PROCEDURES: Arterial Report: Bilateral lower extremity arterial Doppler exam at rest. INDICATIONS: I70.213 Atherosclerosis of [place] mountain arteries of extremities withintermittent claudication, bilateral legs. MEASUREMENTS: Right Value Units Left Value Units Rt Brachial Pressure 149 mmHg Lt Brachial Pressure 147 mmHg Rt PULL TAB DEALER Pressure 62 mmHg Lt PULL TAB DEALER Pressure 121 mmHg Rt DPA Pressure 50 mmHg Lt DPA Pressure 97 mmHg Rt 1st Digit Pressure 31 mmHg Lt 1st Digit Pressure 62 mmHg Rt PT TORREY Resting 0.42 Lt PT TORREY Resting 0.81 Rt AT TORREY Resting 0.34 Lt AT TORREY Resting 0.65 Rt Digit/Arm Index 0.21 Lt Digit/Arm Index 0.42 Right Value Units Left Value Units FINDINGS: Performing Membership Assistant: Jay Hutson RVT. Right Common Femoral Artery [...] above. Electronically Signed By: Aniceto Foley MD [facility] 03/08/2025 8:21:05 PM CDT us Aniceto Foley MD [facility] [place] PROCEDURES Final Resul t * CTA [...] MD IMG CT PROCEDURES Final Resul t from Last [address] [place] [id number] [facility] MEDICARE [facility] MEDICARE [facility] Advance Directives For more information, please contact: [phone] * Full Code (Latest Code Status on File) Date Activated Date Inactivated Comments 04/24/2025 3:12 PM 04/26/2025 3:40 PM * Full Code Date Activated Date Inactivated Comments 11/09/2024 2:36 PM 11/12/2024 6:36 PM * Full Code Date Activated Date Inactivated Comments 10/30/2022 5:29 PM 10/31/2022 7:15 PM * Full Code Date Activated Date Inactivated Comments 08/16/2019 9:46 AM 08/16/2019 5:30 PM Care Teams Csm Consultant Relationship Specialty Start Date End Date Fuentes Orellana MD PCP - General 11/28/16 Itz Iyer MD [address] [facility] [address] [place] [address] [id number] Consulting Physician Urology 05/31/18 Shawnee Mckinney MD [address] [facility] [address] [place] [address] Referring Physician Urology 06/03/18 Chicho Clayton MD [address] [facility] [address] [place] [address] Medical Oncologist/Hematologis t Medical Oncology 06/07/18 Maria Guadalupe Palacios, RN Registered Nurse 06/10/18 Lupillo Davenport MD Referring Physician Radiation Oncology 06/16/18 Danis Meza NP [address] [place] [address] Nurse Practitioner Urology 10/06/22 Antonette Ownes NP [address] [facility] [address] [place] [address] Nurse Practitioner Cardiovascular Disease 10/06/22 Aniceto Foley MD [address] [place] [address] Surgeon Vascular Surgery 10/31/22
--- OUTSIDE RECORDS SUMMARY | 2025-05-01 12:23 | XMS_ITS | Encounter Summary ---
Author Organization [facility] Address [address] [place] [address] Phone Care Team Providers Care Airplane Dispatch Clerk Name Role Phone Fuentes Orellana MD Primary Care Provider + [phone] Itz Iyer MD Unavailable [phone] Shawnee Mckinney MD Unavailable [phone] Chicho Clayton MD Unavailable Maria Guadalupe Palacios RN Unavailable Unava ilable Lupillo Davenport MD Unavailable [phone] Danis Meza PULMONARY PHYSICAL THERAPIST Unavailable Antonette Owens NP Unavailable Aniceto Foley MD Unavailable [phone] Encounter Details Date Type Department Care [...] on file 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 Gender Identity Not on file Sexual [...] on filedocumented in this encounter Care Teams Airplane Dispatch Clerk Relationship Specialty Start Date End Date Fuentes Orellana MD PCP - General 11/28/16 Itz Iyer MD [address] [place] [address] Consulting Physician Urology 05/31/18 Shawnee Mckinney MD [address] [facility] [address] [place] [address] Referring Physician Urology 06/03/18 Chicho Clayton MD [address] [place] [address] Medical Oncologist/Hematologis t Medical Oncology 06/07/18 Maria Guadalupe Palacios, RN Registered Nurse 06/10/18 Lupillo Davenport MD Referring Physician Radiation Oncology 06/16/18 Danis Meza NP [address] [place] [address] Nurse Practitioner Urology 10/06/22 Antonette Owens NP [address] [place] [address] Nurse Practitioner Cardiovascular Disease 10/06/22 Aniceto Foley MD [address] [place] [address] Surgeon Vascular Surgery 10/31/22 documented as of this encounter
--- OUTSIDE RECORDS SUMMARY | 2025-05-01 12:23 | XMS_ITS | Clinical Summary ---
Author Organization [facility] Address [address] [place] [address] Phone Care Team Providers Care Grain Miller Helper Name Role Phone Fuentes Orellana MD Primary Care Provider [phone] Allergies No known active allergies Medications pantoprazole [...] 2025 06/15/2018 Medical Devices Implanted Type Area Social Studies Teacher Device Identifier Shelf Expiration Date Model / Serial / Lot Ams 800 Urinary Control System(Penile Implant) Description:MRI conditional for 3T or less -danisha 01/04/19 Insurance MEDICARE PART A AND B [facility] [id number] Care Teams Grain Miller Helper Relationship Specialty Start Date End Date Fuentes Orellana MD [address] [place] [address] PCP - General Family Practice 01/04/19
--- OUTSIDE RECORDS SUMMARY | 2025-05-01 12:23 | XMS_ITS | Encounter Summary ---
Author Organization [facility] Healthcare Address [address] [place] [address] Care Team Providers Care Intellectual Property Paralegal Name Role Phone Fuentes Orellana MD Primary Care Provider + [phone] Itz Iyer MD Unavailable [phone] Lupillo Davenport MD Unavailable [phone] Lupillo Davenport MD Unavailable [phone] Shawnee Mckinney MD Unavailable [phone] Chicho Clayton MD Unavailable Newton Weeks MD Unavailable [phone] Maria Guadalupe Palacios RN Unavailable Unava ilable Lupillo Davenport MD Unavailable [phone] Itz Iyer MD Unavailable [phone] Itz Iyer MD Unavailable [phone] Itz Iyer MD Unavailable [phone] Itz Iyer MD Unavailable [phone] Itz Iyer MD Unavailable [phone] Itz Iyer MD Unavailable [phone] Danis Meza NP Unavailable [phone] Antonette Owens NP Unavailable Aniceto Foley MD Unavailable Encounter Details Date Type Department Care Team (Late st Contact Info) Description 04/12/2018 Orders Only 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 Gender Identity Not on file Sexual Orientation [...] on filedocumented in this encounter Care Teams Intellectual Property Paralegal Relationship Specialty Start Date End Date Fuentes Orellana MD PCP - General 11/28/16 Itz Iyer MD [address] [facility] [address] [place] [address] Consulting Physician Urology 05/31/18 Lupillo Davenport MD [address] [place] [address] Referring Physician Radiation Oncology 05/31/18 Lupillo Davenport MD [address] [place] [address] Referring Physician Radiation Oncology 05/31/18 Shawnee Mckinney MD [address] [facility] [address] [place] [address] Referring Physician Urology 06/03/18 Chicho Clayton MD [address] [facility] [address] [place] [address] Medical Oncologist/Hematologis t Medical Oncology 06/07/18 Newton Weeks MD [address] [facility] [address] [place] [address] Referring Physician Radiation Oncology 06/07/18 Maria Guadalupe Palacios RN Registered Nurse 06/10/18 Lupillo Davenport MD [address] [place] [address] Referring Physician Radiation Oncology 06/16/18 Itz Iyer MD [address] [place] [address] Consulting Physician Urology 06/17/18 06/17/18 Itz Iyer MD [address] [place] [address] Consulting Physician Urology 06/18/18 06/18/18 Itz Iyer MD [address] [address] Consulting Physician Urology 06/18/18 06/18/18 Itz Iyer MD [address] [place] [address], [place] [address] Consulting Physician Urology 06/22/18 06/22/18 Itz Iyer MD [address] [place] [address] Consulting Physician Urology 07/01/18 07/01/18 Itz Iyer MD [address] [place] [address] Consulting Physician Urology 07/06/18 07/06/18 Danis Meza NP [address] [facility] [address] [place] [address] Nurse Practitioner Urology 10/06/22 Antonette Owens NP [address] [facility] [address] [place] [address] Nurse Practitioner Cardiovascular Disease 10/06/22 Aniceto Foley MD [address] [place] [address] Surgeon Vascular Surgery 10/31/22 documented as of this encounter
--- OUTSIDE RECORDS SUMMARY | 2025-05-01 12:23 | XMS_ITS | Encounter Summary ---
Author Organization [facility] Healthcare Address [address] [place] [address] Care Team Providers Care Human Factors Advisor Lead Name Role Phone Fuentes Orellana MD Primary Care Provider + [phone] Itz Iyer MD Unavailable [phone] Lupillo Davenport MD Unavailable [phone] Lupillo Davenport MD Unavailable [phone] Shawnee Mckinney MD Unavailable [phone] Chicho Clayton MD Unavailable Newton Weeks MD Unavailable [phone] Maria Guadalupe Palacios RN Unavailable Unava ilable Lupillo Davenport MD Unavailable [phone] Itz Iyer MD Unavailable [phone] Itz Iyer MD Unavailable +[phone] Izt Iyer MD Unavailable [phone] Itz Iyer MD Unavailable +[phone] Itz Iyer MD Unavailable +[phone] Itz Iyer MD Unavailable [phone] Danis Meza NP Unavailable [phone] Antonette Owens NP Unavailable Aniceto Foley MD Unavailable [phone] Encounter Details Date Type Department Care Team (Late st Contact Info) Description 03/16/[address] 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 Gender Identity Not on file Sexual Orientation [...] on filedocumented in this encounter Care Teams Human Factors Advisor Lead Relationship Specialty Start Date End Date Fuentes Orellana MD PCP - General 11/28/16 Itz Iyer MD [address] [facility] [address] [place] [address] Consulting Physician Urology 05/31/18 Lupillo Davenport MD [address] [place] [address] Referring Physician Radiation Oncology 05/31/18 Lupillo Davenport MD [address] [place] [address] Referring Physician Radiation Oncology 05/31/18 Shawnee Mckinney MD [address] [facility] [address] [place] [address] Referring Physician Urology 06/03/18 Chicho Clayton MD [address] [facility] [address] [place] [address] Medical Oncologist/Hematologis t Medical Oncology 06/07/18 Newton Weeks MD [address] [facility] [address] [place] [address] Referring Physician Radiation Oncology 06/07/18 Maria Guadalupe Palacios RN Registered Nurse 06/10/18 Lupillo Davenport MD [address] [place] [address] [place] [address] Referring Physician Radiation Oncology 06/16/18 Itz Iyer MD [address] [address] Consulting Physician Urology 06/17/18 06/17/18 Itz Iyer MD [address] [place] [address] Consulting Physician Urology 06/18/18 06/18/18 Itz Iyer MD [address] [address] Consulting Physician Urology 06/18/18 06/18/18 Itz Iyer MD [address] [address] Consulting Physician Urology 06/22/18 06/22/18 Itz Iyer MD [address] [place] [address] Consulting Physician Urology 07/01/18 07/01/18 Itz Iyer MD [address] [place] [address] Consulting Physician Urology 07/06/18 07/06/18 Danis Meza NP [address] [place] [address] Nurse Practitioner Urology 10/06/22 Antonette Owens NP [address] [place] [address] Nurse Practitioner Cardiovascular Disease 10/06/22 Aniceto Foley MD [address] [place] [address] Surgeon Vascular Surgery 10/31/22 documented as of this encounter
--- OUTSIDE RECORDS SUMMARY | 2025-05-01 12:23 | XMS_ITS | Encounter Summary ---
Author Organization [facility] Healthcare Address [address] [place] [address] Care Team Providers Care Vendette Name Role Phone Fuentes Orellana MD Primary Care Provider + [phone] Itz Iyer MD Unavailable [phone] Lupillo Davenport MD Unavailable [phone] Lupillo Davenport MD Unavailable [phone] Shawnee Mckinney MD Unavailable [phone] Chicho Clayton MD Unavailable Newton Weeks MD Unavailable [phone] Maria Guadalupe Palacios RN Unavailable Unava ilable Lupillo Davenport MD Unavailable [phone] Itz Iyer MD Unavailable [phone] Itz Iyer MD Unavailable +[phone] Itz Iyer MD Unavailable [phone] Itz Iyer MD Unavailable +[phone] Itz Iyer MD Unavailable [phone] Itz Iyer MD Unavailable [phone] Danis Meza NP Unavailable [phone] Antonette Owens NP Unavailable Aniceto Foley MD Unavailable [phone] Encounter Details Date Type Department Care Team (Late st Contact Info) Description 03/30/2018 Orders Only [facility] [place] Health Information Management [address] [place] [address] Scanning, Provider Social History Tobacco Use Types Packs/Day Years Used Date Smoking Tobacco: Never Smokeless Tobacco: Never Alcohol Use Standard Drinks/Week Comments Yes 0 (1 standard drink = 0.6 oz pur e alcohol) Sex and Gender Information Value Date Recorded Sex Assigned at Not on file 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 [address] [place] [address] Referring Physician Urology 06/03/18 Chicho Clayton MD [address] [facility] [address] [place] [address] Medical Oncologist/Hematologis t Medical Oncology 06/07/18 Newton Weeks MD [address] [facility] [address] [place] [address] Referring Physician Radiation Oncology 06/07/18 Maria Guadalupe Palacios RN Registered Nurse 06/10/18 Lupillo Davenport MD [address] [place] [address] [place] [address] Referring Physician Radiation Oncology 06/16/18 Itz Iyer MD [address] [address] Consulting Physician Urology 06/17/18 06/17/18 Itz Iyer MD [address] [place] [address] Consulting Physician Urology 06/18/18 06/18/18 Itz Iyer MD [address] [address] Consulting Physician Urology 06/18/18 06/18/18 Itz Iyer MD [address] [address] Consulting Physician Urology 06/22/18 06/22/18 tIz Iyer MD [address] [place] [address] Consulting Physician Urology 07/01/18 07/01/18 Itz Iyer MD [address] [place] [address] Consulting Physician Urology 07/06/18 07/06/18 Danis Meza NP [address] [place] [address] Nurse Practitioner Urology 10/06/22 Antonette Owens NP [address] [place] [address] Nurse Practitioner Cardiovascular Disease 10/06/22 Aniceto Foley MD [address] [place] [address] Surgeon Vascular Surgery 10/31/22 documented as of this encounter
--- OUTSIDE RECORDS SUMMARY | 2025-05-01 12:23 | XMS_ITS | Encounter Summary ---
Author Organization [facility] Healthcare Address [address] [place] [address] Care Team Providers Care Client Solutions Manager Name Role Phone Fuentes Orellana MD Primary Care Provider + [phone] Itz Iyer MD Unavailable [phone] Shawnee Mckinney MD Unavailable [phone] Chicho Clayton MD Unavailable Maria Guadalupe Palacios RN Unavailable Unava ilable Lupillo Davenport MD Unavailable [phone] Danis Meza ENGINEER INTERNSHIP Unavailable [phone] Antonette Owens NP Unavailable Aniceto Foley MD Unavailable [phone] Encounter Details Date Type Department Care Team (Late st Contact Info) Description 07/24/2024 Orders Only [facility] [place] Health Information Management [address] [place] [address] Scanning, Provider Social History Tobacco Use Types [...] on file 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 Gender Identity Not on file Sexual Orientation [...] on filedocumented in this encounter Care Teams Client Solutions Manager Relationship Specialty Start Date End Date Fuentes Orellana MD PCP - General 11/28/16 Itz Iyer MD [address] [address] Consulting Physician Urology 05/31/18 Shawnee Mckinney MD [address] [facility] [address] [place] [address] Referring Physician Urology 06/03/18 Chicho Clayton MD [address] [facility] [address] [place] [address] Medical Oncologist/Hematologis t Medical Oncology 06/07/18 Maria Guadalupe Palacios RN Registered Nurse 06/10/18 Lupillo Davenport MD Referring Physician Radiation Oncology 06/16/18 Danis Meza NP [address] [facility] [address] [place] [address] Nurse Practitioner Urology 10/06/22 Antonette Owesn NP [address] [facility] [address] [place] [address] Nurse Practitioner Cardiovascular Disease 10/06/22 Aniceto Foley MD [address] [place] [address] Surgeon Vascular Surgery 10/31/22 documented as of this encounter
--- OUTSIDE RECORDS SUMMARY | 2025-05-01 12:23 | XMS_ITS | Encounter Summary ---
Author Organization [facility] Address [address] [place] [address] Phone Care Team Providers Care Web Programmer Name Role Phone Fuentes Orellana MD Primary Care Provider Brent Dickinson DO Unavailable [phone] Faviola Jiménez ELECTRODE CLEANER, INDUSTRIAL PRODUCTION MANAGER Unavailable Shawnee Mckinney MD Unavailable Chicho Clayton MD Unavailable Lai Lambert ELECTRODE CLEANER, INDUSTRIAL PRODUCTION MANAGER Unavailable [phone] Kami Meneses MD Unavailable [phone] Anette Bond MD Unavailable [phone] Kay Gordon ELECTRODE CLEANER, INDUSTRIAL PRODUCTION MANAGER Unavailable Kami Meneses MD Unavailable [phone] Kami Meneses MD Unavailable [phone] Kami Meneses MD Unavailable [phone] Reason for Visit * Reason Comments Medication Refill Encounter Details Date Type Department Care Team (Late st Contact Info) Description 03/25/2021 Refill [facility] - Gastroenterology - [place] [address] [place] [address] Ingrid Mccloud Ashley, PAC [address] [place] [address] Medication Refill Social History Tobacco Use Types [...] 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 Not on file [...] documented as of this encounter Care Teams Web Programmer Relationship Specialty Start Date End Date Fuentes Orellana MD [address] [address] PCP - General Family Medicine 07/06/15 Brent Dickinson DO [address] [address] Gastroenterology 06/27/16 Faviola Jiménez APRN, INDUSTRIAL PRODUCTION MANAGER [address] [address] Nurse Practitioner Advanced Practice Nurse 07/22/16 Shawnee Mckinney MD [address] [facility] [address] [place] [address] Urologist Urology 06/07/19 Chicho Clayton MD [address] [facility] [address] [place] [address] Oncology 06/13/19 Lai Lambert APRN, INDUSTRIAL PRODUCTION MANAGER [address] [place] [address] Nurse Practitioner Advanced Practice Nurse 02/10/23 Kami Meneses MD #[address] [address] Consulting Physician Urology 06/16/23 Anette Bond MD [address] [place] [address] Consulting Physician Gastroenterology 12/25/22 Kay Gordon APRN, INDUSTRIAL PRODUCTION MANAGER [address] [place] [address] Nurse Practitioner Advanced Practice Nurse 06/16/24 Kami Meneses MD [address], [facility] [address] [place] [address] Consulting Physician Urology 08/19/24 Kami Meneses MD [address], [facility] [address] [place] [address] Consulting Physician Urology 01/06/25 Kami Meneses MD #[address], [facility] [address] [place] [address] Consulting Physician Urology 03/08/25 documented as of this encounter
--- OUTSIDE RECORDS SUMMARY | 2025-05-01 12:23 | XMS_ITS | Clinical Summary ---
Author Organization [facility] Address [address] [place] [address] Care Team Providers Care Communications Manager Name Role Phone Fuentes Orellana MD Primary Care Provider [phone] Allergies No known active allergies Medications amLODIPine [...] age to complete this topic Insurance MEDICARE [facility] Care Teams Communications Manager Relationship Specialty Start Date End Date Fuentes Orellana MD [address] [place] [id number] PCP - General FAMILY PRACTICE 11/29/22
--- OUTSIDE RECORDS SUMMARY | 2025-05-01 12:23 | XMS_ITS | Encounter Summary ---
Author Organization [facility] Healthcare Address [address] [place] [address] Care Team Providers Care Automotive Sales Associate Name Role Phone Fuentes Orellana MD Primary Care Provider + [phone] Itz Iyer MD Unavailable [phone] Shawnee Mckinney MD Unavailable [phone] Chicho Clayton MD Unavailable Maria Guadalupe Palacios RN Unavailable Unava ilable Lupillo Davenport MD Unavailable [phone] Danis Meza CAT SCANNER OPERATOR Unavailable [phone] Antonette Owens NP Unavailable Aniceto Foley MD Unavailable [phone] Encounter Details Date Type Department Care Team (Late st Contact Info) Description 07/11/2024 Orders Only [facility] [place] Information Management [address] [place] [address] Scanning, Provider Social History Tobacco Use Types [...] on file 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 Gender Identity Not on file Sexual Orientation [...] on filedocumented in this encounter Care Teams Automotive Sales Associate Relationship Specialty Start Date End Date Fuentes Orellana MD PCP - General 11/28/16 Itz Iyer MD [address] [place] [address] Consulting Physician Urology 05/31/18 Shawnee Mckinney MD [address] [facility] [address] [place] [address] Referring Physician Urology 06/03/18 Chicho Clayton MD [address] [facility] [address] [place] [address] Medical Oncologist/Hematologis t Medical Oncology 06/07/18 Maria Guadalupe Palacios, RN Registered Nurse 06/10/18 Lupillo Davenport MD Referring Physician Radiation Oncology 06/16/18 Danis Meza NP [address] [facility] [address] [place] [address] Nurse Practitioner Urology 10/06/22 Antonette Owens NP [address] [facility] [address] [place] [address] Nurse Practitioner Cardiovascular Disease 10/06/22 Aniceto Foley MD [address] [place] [address] Surgeon Vascular Surgery 10/31/22 documented as of this encounter
--- OUTSIDE RECORDS SUMMARY | 2025-05-01 12:23 | XMS_ITS | Encounter Summary ---
Author Organization [facility] Address [address] [place] [address] Phone Care Team Providers Care Director Presales Name Role Phone Fuentes Orellana MD Primary Care Provider [phone] Brent Dickinson DO Unavailable [phone] Faviola Jiménez AIRCRAFT ELECTRONICS TECHNICAL OFFICER, AIRFIELD MANAGER Unavailable Shawnee Mckinney MD Unavailable Chicho Clayton MD Unavailable Lai Lambert AIRCRAFT ELECTRONICS TECHNICAL OFFICER, AIRFIELD MANAGER Unavailable [phone] Kami Meneses MD Unavailable [phone] Anette Bond MD Unavailable [phone] Kay Gordon AIRCRAFT ELECTRONICS TECHNICAL OFFICER, AIRFIELD MANAGER Unavailable Kami Meneses MD Unavailable [phone] Kami Meneses MD Unavailable [phone] Kami Meneses MD Unavailable [phone] Encounter Details Date Type Department Care Team (Late st Contact Info) Description 12/16/2024 Telephone [facility] UROLOGY [address] [place] [address] Kami Meneses MD #[address], [facility] [address] [place] [address] Social History Tobacco Use Types Packs/Day Years [...] 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 Chicho Clayton at [place] for prostate. * Telephone Encounter - Kami Meneses MD - 12/16/2024 11:45 AM CDT Can you ask the patient who follows him for his prostate cancer? documented in this encounter Plan of Treatment Not on file documented as of this encounter Visit Diagnoses Not on filedocumented in this encounter Care Teams Director Presales Relationship Specialty Start Date End Date Fuentes Orellana MD [address] [place] [address] PCP - General Family Medicine 07/06/15 Brent Dickinson DO [address] [address] Gastroenterology 06/27/16 Faviola Jiménez APRN, AIRFIELD MANAGER [address] [place] [address] Nurse Practitioner Advanced Practice Nurse 07/22/16 Shawnee Mckinney MD [address] [facility] [place] [facility] [address] [place] [address] Urologist Urology 06/07/19 Chicho Clayton MD [address] [facility] [address] [place] [address] Oncology 06/13/19 Lai Lambert APRN, AIRFIELD MANAGER [address] [place] [address] Nurse Practitioner Advanced Practice Nurse 02/10/23 Kami Meneses MD #[address] [address] Consulting Physician Urology 06/16/23 Anette Bond MD [address] [place] [address] Consulting Physician Gastroenterology 12/25/22 Kay Gordon APRN, AIRFIELD MANAGER [address] [place] [address] Nurse Practitioner Advanced Practice Nurse 06/16/24 Kami Meneses MD #[address] [address] Consulting Physician Urology 08/19/24 Kami Meneses MD [address], [facility] [address] [place] [address] Consulting Physician Urology 01/06/25 Kami Meneses MD #[address] [facility] [address] [place] [address] Consulting Physician Urology 03/08/25 documented as of this encounter
[2025-05-01 12:32] VITALS: BP 128/44; PULSE 65; RESP 18; TEMP 36.4; O2SAT 100
[2025-05-01 12:55] LABS: EDUAAPPEAR Clear; EDUABILI Negative (Negative); EDUABLOOD Negative (Negative); EDUACOLOR1 Yellow; EDUAGLUCOSE Negative (Negative); EDUAKETONE Negative (Negative); EDUALEUKO Negative (Negative); EDUANITRATE Negative (Negative); EDUAPH 5.0; EDUAPROTEIN 1+ (Negative); EDUASPGRAVITY 1.025; EDUAUROBILI 0.2
--- NOTE | 2025-05-01 12:59 | ED.BACK ---
HPI - Back Pain/Injury General Chief Complaint: Back Pain/Injury Stated Complaint: Fever / Back Pain Time Seen by Provider: 05/01/25 13:00 Source: patient, RN notes reviewed and old records reviewed Mode of arrival: ambulatory Limitations: no limitations History of Present Illness HPI Narrative: 74 year old male presents to express care with complaints of lower back pain flank region pain which radiates to anteriorly with feels of irritation with hesitancy and some frequency denies any known fevers but has had some chills this past week, increased since Thursday . Patient reports that he saw his urologist on Thursday and they worked with his bladder assist device but is not working properly so is deactivated presently wearing depends because he has incontinency. Patient reports that he had vascular procedure on Thursday in [facility] on the where he had some new stents inserted into infrarenal aortic region with bilateral groin sites with no drainage or any acute redness, healing well. Patient reports that he has MD appointment with his PCP on Thursday. MD elicited complaint: back pain Pertinent past history: incontinence and other (prostate cancer with bladder assist implant inserted after but is presently deactivated.) Onset (ago): day(s) (increased symptoms 2 days) Pain scale (0-10): 6 Treatments prior to arrival: other (tylenol and pain RX) Related Data Home Medications ?Medication ?Instructions ?Recorded ?Confirmed ?Last Taken ?Type nitroglycerin 0.3 mg sublingual 0.3 mg sublingual PRN PRN Chest 12/05/21 05/01/25 Unknown History tablet Pain ticagrelor 60 mg tablet (Brilinta) 60 mg PO BID 12/05/21 05/01/25 03/08/25 History aspirin 81 mg tablet,delayed 81 mg PO DAILY 12/06/21 05/01/25 03/11/25 History release (Adult Aspirin Regimen) chlorthalidone 25 mg tablet 25 mg PO DAILY 04/16/23 05/01/25 03/14/25 History rosuvastatin 40 mg tablet 40 mg PO DAILY 10/13/23 05/01/25 03/14/25 History telmisartan 80 mg tablet 80 mg PO DAILY 06/08/24 05/01/25 03/14/25 History amlodipine 5 mg tablet 5 mg PO DAILY 09/29/24 05/01/25 03/14/25 History metoprolol tartrate 25 mg tablet 25 mg PO Q12H 12/16/24 05/01/25 03/14/25 History gabapentin 100 mg capsule mg PO TID 04/19/25 04/19/25 Unknown History Allergies Allergy/AdvReac Type Severity Reaction Status Date / Time dapagliflozin (From [facility]) Allergy Severe Hallucinati Verified 05/01/25 13:24 ng metformin AdvReac Severe Diarrhea Verified 05/01/25 13:24 [facility]ide ([facility]) AdvReac Intermediate Confusion Verified 05/01/25 13:24 Review of Systems Review of Systems: CONSTITUTIONAL: Denies fever, some feeling of chills, no sweats. CARDIOVASCULAR: Denies chest pain, palpitations, or edema. RESPIRATORY: Denies cough or dyspnea. GASTROINTESTINAL: radiating pain from flank to lower abdominal region, no nausea, vomiting, or diarrhea. GENITOURINARY: Denies dysuria or hematuria. SKIN: Denies rash or itching. MUSCULOSKELETAL: Reports back pain flank area that radiates to anterior lower abdomen at times.Joint pain or myalgia. NEUROLOGIC: Denies headache, numbness, or weakness. All systems reviewed & are unremarkable except as noted in HPI and below PMFSH Past Medical History Medical History Bilateral lower extremity edema Hospital discharge follow-up Hard of hearing reads lips Hypertension Anxiety SOB (shortness of breath) Hyponatremia Cerebrovascular disease Diabetic polyneuropathy Lumbar spine pain BMI 27.0-27.9,adult Chronic pain Spasmodic bladder Trochanteric bursitis, left hip Trochanteric bursitis, right hip Heart disease History of prostate cancer Arthritis History of blood clots Carpal tunnel syndrome on both sides Overweight BMI 26.0-26.9,adult Microscopic colitis Dysphagia BMI 26.0-26.9,adult BMI between 19-24,adult Right shoulder pain Left shoulder pain BMI 25.0-25.9,adult 1st MTP arthritis Depression High cholesterol Shortness of breath Wears glasses Light headedness BMI 25.0-25.9,adult GERD (gastroesophageal reflux disease) HLD (hyperlipidemia) HTN (hypertension) Collagenous colitis Adenomatous colon polyp Tendinitis of both rotator cuffs Groin discomfort CAD (coronary artery disease) Carotid stenosis, asymptomatic h/o intracranial cerebral stenosis, evaluated at [place] 05/2019, thought not to be symptomatic cont med tx. Glaucoma Personal history of DVT (deep vein thrombosis) Stenosis of infrarenal abdominal aorta due to arteriosclerosis Says his aorta is mildly enlarged Gout (~08/2019) Prostate cancer Anemia Type 2 diabetes mellitus without complications Surgical History Surgical History H/O umbilical hernia repair 01/03/25; Dr Nunez; 6.[address] hernia patch Status post urinary system surgery AMS 800TM device placed 11/09/24 Dr Meneses (urologist [place] - same urology group as at [place]) Hx of endarterectomy H/O carotid endarterectomy (~10/2022) History of rotator cuff surgery History of angioplasty History of cataract surgery History of colonoscopy 2019 S/P arthroscopic surgery of left knee H/O rectal polypectomy H/O cystoscopy History of prostatectomy Had prostate cancer, status post prostatectomy and later radiation therapy. Has an implanted device to help with urinary incontinence. H/O cardiac catheterization H/O heart artery stent Family History Family History Father , of lung cancer age 83 Hypertension Lung cancer Sibling Hypertension Mother Family history of malignant neoplasm of breast in first degree relative Breast cancer of breast cancer age 37 Sibling No problems noted. Other Diabetes mellitus Family history of cardiovascular disease Family history of elevated blood lipids Family history of malignant neoplasm Social History Social History Social History: The patient has 2 sons and is . 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 Wishes to be a full code. 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 Uses cane/assist device when out but not always at home. Smoking packs per day: 1 Smoking cigarettes per day: 20.0 Years smoked: 15 Smoking pack-years: 15.00 Smoking status: Former smoker Tobacco type: cigarettes Second hand tobacco smoke exposure: No Smoking end date: 08/31/82 Alcohol intake: unknown Drinks per week: 14 Alcohol use details: 2-3 per day beer Substance use: never Substance use type: does not use Other substance usage details: no beer in over a week; no marijuana in 9 months Do You Feel Safe in your Home?: Yes Lack of Transportation: No Lack of Food: Never True Current Housing: I Have Housing Concerned About Future Housing: No Difficulty Paying Gas/Electric Bills: No Difficulty Paying for Meds: No Currently Unemployed: No Education: Trade/Vocational Certificate Difficulty w/ Childcare or Family Care: No Living arrangements: alone Occupation/Education: retired Additional occupation/education comments: 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 Gender identity (if verbalized by the patient): Male Spiritual care concerns: No Agree to blood products: Yes Comments At time of signature, agree with nursing past medical, surgical, social and family history. There is no relevant family history pertinent to the presenting complaint Exam Narrative: GENERAL: Well-appearing, well-nourished, and in no acute distress. HEAD: Normocephalic, atraumatic. EYES: PERRLA and EOMI. NECK: Supple. No lymphadenopathy. CHEST: Clear to auscultation. No respiratory distress. HEART: Regular rate and rhythm. Distal pulses palpable and equal, cap refill <3 seconds ABDOMEN: Soft, nontender, nondistended, normal active bowel sounds, no palpable or pulsatile masses.mild CVA tenderness reported that at times radiates to abdomen, irritation with urination hesitancy and some frequency denies any burning MUSCULOSKELETAL: Normal range of motion and strength in all extremities; 5/5 strength with hip flexion and extension, dorsiflexion and extension, knee flexion and extension, plantar flexion and extension. Normal sensation in dermatomal distributions with sensitivity to light touch and pain. some mid lower back midline back tenderness to palpation. No paraspinal tenderness. Transfers from lying to sitting to standing. SKIN: Warm, dry, no rash. No ecchymosis, erythema, open wounds to back. NEURO: No focal deficits. Alert and oriented x3. Reflexes intact. Normal gait. PSYCH: Normal mood and affect Course Course Emergency Course: Patient is aware of diagnosis, understands and agrees to treatment plan. Anticipatory guidance given. Patient agrees to follow-up as directed and is aware of reasons to seek care at the emergency department. Portions of this record may have been created with voice recognition software Level of Care: Express Care Visit Vital Signs Vital signs: Vital Signs Temperature 36.4 C 05/01/25 12:32 Pulse Rate 65 05/01/25 12:32 Respiratory Rate 18 05/01/25 12:32 Blood Pressure 128/44 L 05/01/25 12:32 Pulse Oximetry 100 05/01/25 12:32 Oxygen Delivery Room Air 05/01/25 12:32 Temperature 36.4 C 05/01/25 12:32 Pulse Rate 65 05/01/25 12:32 Respiratory Rate 18 05/01/25 12:32 Blood Pressure 128/44 L 05/01/25 12:32 Pulse Oximetry 100 05/01/25 12:32 Oxygen Delivery Room Air 05/01/25 12:32 Reviewed MDM - Back Pain/Injury MDM Narrative Medical decision making narrative: No risk factors or findings concerning for epidural abscess, diskitis, vertebral osteomyelitis, cord compression, cauda equina, vertebral fracture or bone malignancy, AAA, or pyelonephritis. Patient instructed to consider further imaging and workup through their primary care physician as an outpatient if symptoms persist. Differential Diagnosis Differential diagnosis: Likely lumbar radiculopathy, strain of lumbar region, pyelonephritis and other (UTI symptoms, flank pain) Medical Records Attestation: I reviewed the patient's medical records. Lab Data Attestation: I reviewed the patient's lab results. Lab results narrative: urine dip reviewed Labs: Lab Results 05/01/25 Range/Units 12:52 POC Urine Color Yellow POC Urine Clarity Clear POC Urine pH 5.0 POC Ur Specif Grady 1.025 POC Urine Protein 1+ (Negative) POC Ur Glucose (UA) Negative (Negative) POC Urine Ketones Negative (Negative) POC Urine Blood Negative (Negative) POC Urine Nitrite Negative (Negative) POC Urine Bilirubin Negative (Negative) POC Urine Urobilinogen 0.2 POC U Leukocyte Esteras Negative (Negative) reviewed Critical Care Time Critical Care Time Critical Care Time: No Discharge Plan Discharge Clinical Impression: UTI symptoms Patient Disposition: Home Condition: Stable Instructions: Antibiotic Form, Urinary Tract Infection in Men (ED) Additional Instructions: Increase fluids especially cranberry juice and water Avoid caffeine and carbonated beverages Antibiotic as directed Tylenol/ibuprofen for pain or fever Follow-up with her primary care provider if further problems or concerns Recheck if you have fever over 101, nausea and vomiting. Any increased pain go to the emergency room for follow-up If your symptoms persist, change or worsen significantly before you can contact your personal physician then please, without delay, go to the emergency department for further evaluation. Follow-up with PCP in 7-10 days or sooner if needed Antibiotic as prescribed follow up with PCP on Thursday as scheduled Patient Language: Fijian Prescriptions: New ciprofloxacin HCl 250 mg tablet 250 mg PO Q12H Qty: 14 0RF No Action nitroglycerin 0.3 mg tablet, sublingual 0.3 mg sublingual PRN PRN (Reason: Chest Pain) ticagrelor [Brilinta] 60 mg tablet 60 mg PO BID Patient Comments: HOLD 5 days prior to surgery vitamin A and D Ointment 1 applic topical 4-6XD PRN (Reason: skin irritation) 7 Days Qty: 113 0RF chlorthalidone 25 mg tablet 25 mg PO DAILY telmisartan 80 mg tablet 80 mg PO DAILY rosuvastatin 40 mg tablet 40 mg PO DAILY aspirin [Adult Aspirin Regimen] 81 mg tablet,delayed release (DR/EC) 81 mg PO DAILY linagliptin 5 mg tablet 5 mg PO QAM Qty: 90 2RF (DME) Accu-Chek Aaliyah Plus test strp Strip See Rx Instructions .Route Qty: 400 1RF Rx Instructions: Check blood sugar 4 times daily (DME) lancets [E-Z Ject Lancets] 33 gauge misc See Rx Instructions .Route Qty: 400 12RF Rx Instructions: three times daily glimepiride 1 mg tablet 1 mg PO BID Qty: 180 1RF Rx Instructions: 1 mg before breakfast and 1 mg before supper Gvoke HypoPen 2-Pack 1 mg/0.2 mL auto-injector 1 mg subcut ONCE Qty: 0.4 0RF Rx Instructions: as a single dose; may repeat once after 15 minutes if no response amlodipine 5 mg tablet 5 mg PO DAILY albuterol sulfate [Ventolin HFA] 90 mcg/actuation HFA aerosol inhaler 2 inh inhalation Q4H PRN (Reason: shortness of breath or wheezing) Qty: 8.5 0RF gabapentin 100 mg capsule PO TID metoprolol tartrate 25 mg Tablet 25 mg PO Q12H alprazolam 0.5 mg tablet 0.5 mg PO TID PRN (Reason: Anxiety) Qty: 20 0RF allopurinol 300 mg tablet 300 mg PO DAILY Qty: 90 1RF pantoprazole 40 mg tablet,delayed release (DR/EC) 40 mg PO DAILY Qty: 90 1RF Kerendia 10 mg tablet See Rx Instructions .ROUTE .COMPLEX Qty: 30 12RF Dose Instruction: TAKE 1 TABLET BY MOUTH DAILY Rx Instructions: TAKE 1 TABLET BY MOUTH DAILY Follow-up/Referrals: Fuentes Orellana MD [Primary Care Provider, [facility]] Time of Disposition: 13:46 Quality Carmel Coma Scale Eyes: Open Verbal: Oriented and Alert Motor: Follows Commands Fouzia Coma Total Score: 15
== END 2025-05-01 13:56 | disposition home or self-care (01) ==
PROVIDERS: Emergency Provider Registered Nurse; PCP Family Medicine
DX: M54.50 Low back pain, unspecified (principal); R10.9 Unspecified abdominal pain; I10 Essential (primary) hypertension; E78.00 Pure hypercholesterolemia, unspecified; I25.10 Atherosclerotic heart disease of native coronary artery without angina pectoris; E11.39 Type 2 diabetes mellitus with other diabetic ophthalmic complication; H42 Glaucoma in diseases classified elsewhere; E11.42 Type 2 diabetes mellitus with diabetic polyneuropathy; Z79.84 Long term (current) use of oral hypoglycemic drugs; K21.9 Gastro-esophageal reflux disease without esophagitis; M10.9 Gout, unspecified; M19.90 Unspecified osteoarthritis, unspecified site; Z85.46 Personal history of malignant neoplasm of prostate; Z86.718 Personal history of other venous thrombosis and embolism; Z87.891 Personal history of nicotine dependence; Z90.79 Acquired absence of other genital organ(s); Z95.5 Presence of coronary angioplasty implant and graft; Z92.3 Personal history of irradiation; Z79.82 Long term (current) use of aspirin
CPT/HCPCS: 81003; 87086; 99213; G0463

== ENCOUNTER 2025-05-04 12:05 | Outpatient (CLI) | payer MEDICARE, SELFPAY ==
--- OUTSIDE RECORDS SUMMARY | 2005-08-04 03:15 | XMS_ITS | Continuity of Care Document ---
Author Organization [facility] Address [address] [place] [address] [place] [address] Phone Care Team Providers Care Ase Master Mechanic Name Role Phone To Torres MD Unavailable Unavailable Advance Directives Directive Yes / No Effective Date File Name No Information Encounters Encounter Description Practice Location Reason(s) For Visit Diagnoses Date Provider Providers Copied on Encounter [facility], [address], [place], [place], [id number], tel:[phone] [facility] No Information Dec-0 5-200 5 Melissa Ariza. [address] [facility] [address], [place], [place], [address], [place]. tel:[phone] Family History Family Member Type Diagnosis Age At Onset No Information Payers Payer name Insurance type Covered alliance party ID Authoriza tion(s) Medicaid [facility] [id number] Social History Type Description Quantity Date Captured [...]
--- NOTE | ~2025-05-04 | CT_ITS ---
EXAMINATION: CT abdomen pelvis wo con DATE: 05/04/2025 12:23 INDICATION: Lower abdominal pain TECHNIQUE: Computed tomography (CT) of the abdomen and pelvis was performed without intravenous contrast. Automated exposure control and iterative reconstruction technique were employed. The dose-length product was 577.86 mGy-cm. COMPARISON: 01/15/2025 FINDINGS: Lung bases are clear. Heart size normal. Atherosclerotic coronary artery calcification. No pericardial or pleural effusion. Small sliding-type hiatal hernia. Liver, gallbladder, spleen, pancreas, bilateral adrenal glands and kidneys are normal. There are few scattered diverticula along the sigmoid colon without adjacent comparison to suggest diverticular colitis. Small bowel and appendix are normal. Penile implant with catheter extending to a reservoir in the anterior left hemipelvis. Postoperative change of prior prostatectomy with surgical clips in the deep pelvis. Bladder is normal. No free intraperitoneal gas or fluid. No pathologically enlarged abdominal or pelvic lymphadenopathy. There is prominent calcified atherosclerosis of the normal caliber aorta and iliac arteries with infrarenal aortobiiliac stent graft. Change of prior umbilical hernia repair. Lumbar spondylosis with chronic mild L4 compression fracture. IMPRESSION: 1. No acute intra-abdominal/pelvic process. 2. Small sliding-type hiatal hernia. 3. Postoperative changes as detailed above including prior prostatectomy, umbilical hernia repair and aortobiiliac endoluminal stent grafting. Reviewed, dictated and finalized at location A. IMPRESSION: 1. No acute intra-abdominal/pelvic process. 2. Small sliding-type hiatal hernia. 3. Postoperative changes as detailed above including prior prostatectomy, umbil ical hernia repair and aortobiiliac endoluminal stent grafting.
--- OUTSIDE RECORDS SUMMARY | 2025-05-04 12:27 | XMS_ITS | Encounter Summary ---
Author Organization [facility] Address [address] [place] [address] Care Team Providers Care Pest Controller Name Role Phone Fuentes Orellana MD Primary Care Provider + [phone] Fuentes Orellana MD Primary Care Provider + [phone] Itz Iyer MD Unavailable [phone] Lupilol Davenport MD Unavailable [phone] Lupillo Davenport MD Unavailable [phone] Shawnee Mckinney MD Unavailable [phone] Chicho Clayton MD Unavailable Newton Weeks MD Unavailable [phone] Maria Guadalupe Palacios RN Unavailable Unava ilable Lupillo Davenport MD Unavailable [phone] Itz Iyer MD Unavailable [phone] Itz Iyer MD Unavailable [phone] Itz Iyer MD Unavailable [phone] Itz Iyer MD Unavailable [phone] Itz Iyer MD Unavailable [phone] Itz Iyer MD Unavailable [phone] Danis Meza FLARE MAKER Unavailable [phone] Rater, Antonette FLARE MAKER Unavailable Aniceto Foley MD Unavailable [phone] Encounter Details Date Type Department Care Team (Late st Contact Info) Description 11/18/2016 Orders Only [facility] Provider, MD Katie [facility] [place] [address] Social History Tobacco Use Types Packs/Day Years Used Date Smoking Tobacco: Never Assessed Sex and Gender Information Value Date Recorded Sex Assigned at Not on file 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 Gender Identity Not on file Sexual [...] on filedocumented in this encounter Care Teams Pest Controller Relationship Specialty Start Date End Date Fuentes Orellana MD PCP - General 11/28/16 Fuentes Orellana MD PCP - General 07/14/07 11/27/16 Itz Iyer MD [address] [facility] [address] [place] [address] [id number] Consulting Physician Urology 05/31/18 Lupillo Davenport MD [address] [place] [address] Referring Physician Radiation Oncology 05/31/18 Lupillo Davenport MD [address] [place] [address] Referring Physician Radiation Oncology 05/31/18 Shawnee Mckinney MD [address] [facility] [address] [place] [address] Referring Physician Urology 06/03/18 Chicho Clayton MD [address] [facility] [address] [place] [address] Medical Oncologist/Hematologis t Medical Oncology 06/07/18 Newton Weeks MD [address] [facility] [address] [place] [address] Referring Physician Radiation Oncology 06/07/18 Maria Guadalupe Palacios, RN Registered Nurse 06/10/18 Lupillo Davenport MD [address] [place] [address] Referring Physician Radiation Oncology 06/16/18 Itz Iyer MD [address] [address] Consulting Physician Urology 06/17/18 06/17/18 Itz Iyer MD [address] [address] Consulting Physician Urology 06/18/18 06/18/18 Itz Iyer MD [address] [place] [address] Consulting Physician Urology 06/18/18 06/18/18 Itz Iyer MD [address] [place] [address] Consulting Physician Urology 06/22/18 06/22/18 Itz Iyer MD [address] [place] [address] Consulting Physician Urology 07/01/18 07/01/18 Itz Iyer MD [address] [place] [address] Consulting Physician Urology 07/06/18 07/06/18 Danis Meza NP [address] [place] [address] Nurse Practitioner Urology 10/06/22 Antonette Owens NP [address] [place] [address] Nurse Practitioner Cardiovascular Disease 10/06/22 Aniceto Foley MD [address] [place] [address] Surgeon Vascular Surgery 10/31/22 documented as of this encounter
--- OUTSIDE RECORDS SUMMARY | 2025-05-04 12:27 | XMS_ITS | Clinical Summary ---
Author Organization [facility] Address [address] [place] [address] Care Team Providers Care Cutting Machine Fixer Name Role Phone Fuentes Orellana MD Primary Care Provider [phone] Allergies No known active allergies Medications amLODIPine [...] 2) 1999 Annual Medicare Wellness Visit 2014 RSV Immunization or 60+ Years (1 - 1-dose 75+ series) 2024 COVID-19 Vaccine ( season) 2025 06/27/2022, 08/15/2021, 11/24/2020, Additional history exists DTaP, Tdap and Td Vaccines (2 - [...] age to complete this topic Insurance MEDICARE [facility] Care Teams Cutting Machine Fixer Relationship Specialty Start Date End Date Fuentes Orellana MD [address] [place] [id number] PCP - General FAMILY PRACTICE 11/29/22
--- OUTSIDE RECORDS SUMMARY | 2025-05-04 12:27 | XMS_ITS | Encounter Summary ---
Author Organization [facility] Address [address] [place] [address] Phone Care Team Providers Care Raw Stock Drier Tender Name Role Phone Fuentes Orellana MD Primary Care Provider + [phone] Itz Iyer MD Unavailable [phone] Shawnee Mckinney MD Unavailable [phone] Chicho Clayton MD Unavailable Maria Guadalupe Palacios RN Unavailable Unava ilable Lupillo Davenport MD Unavailable [phone] Danis Meza NOTEREADER Unavailable [phone] Antonette Owens NP Unavailable Aniceto Foley MD Unavailable [phone] Encounter Details Date Type Department Care [...] file 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 Gender Identity Not on file Sexual Orientation [...] on filedocumented in this encounter Care Teams Raw Stock Drier Tender Relationship Specialty Start Date End Date Fuentes Orellana MD PCP - General 11/28/16 Itz Iyer MD [address] [place] [address] Consulting Physician Urology 05/31/18 Shawnee Mckinney MD [address] [facility] [address] [place] [address] Referring Physician Urology 06/03/18 Chicho Clayton MD [address] [place] [address] Medical Oncologist/Hematologis t Medical Oncology 06/07/18 Maria Guadalupe Palacios, RN Registered Nurse 06/10/18 Lupillo Davenport MD Referring Physician Radiation Oncology 06/16/18 Danis Meza NP [address] [place] [address] Nurse Practitioner Urology 10/06/22 Antonette Owens NP [address] [place] [address] Nurse Practitioner Cardiovascular Disease 10/06/22 Aniceto Foley MD [address] [place] [address] Surgeon Vascular Surgery 10/31/22 documented as of this encounter
--- OUTSIDE RECORDS SUMMARY | 2025-05-04 12:27 | XMS_ITS ---
Author Organization [facility] [place] [address] Address [address] [place] [address] Care Team Providers Care Marketing Operations Consultant Name Role Phone Fuentes Orellana MD Primary Care Provider Itz Iyer MD Unavailable [phone] Shawnee Mckinney MD Unavailable [phone] Chicho Clayton MD Unavailable Maria Guadalupe Palacios RN Unavailable Unava ilable Lupillo Davenport MD Unavailable [phone] Danis Meza SUPERVISOR METAL PLACING Unavailable [phone] Antonette Owens NP Unavailable Aniceto Foley MD [...] (10/21/2022): Added automatically from request for surgery [id number] Assessment & Plan (10/30/2022 2:56 PM STRETCH MACHINE OPERATOR): - OR 3/2 for planned R CEA - OU status, Q2h NV/VS monitoring - Bedrest today, OOB/PT POD #1 - SBP goal 100-160, nicardipine for elevated BP - Continue aspirin and statin - Plan to stager home medications and resume overnight Atherosclerosis of chenega ar teries of extremities with intermittent claudication, bilateral legs 06/03/2022 Melanoma 01/10/2021 Anxiety 01/10/2021 DM (diabetes mellitus) 01/10/2021 Assessment & Plan (04/25/2025 6:06 AM CDT): NIDDM, on finerenon, amaryl, tradjenta. - Hold home PO diabetic meds while inpatient. Restart at discharge. - Diabetic diet, SSI Assessment & Plan (10/30/2022 9:59 AM STRETCH MACHINE OPERATOR): - A1c 7.6% 10/2022 - SSI while inpatient - CC diet when eating Elevated left ventricular end-diastolic pressure (LVEDP) 11/15/2019 Encounter for surgical after care following surgery of circulatory system 05/20/2019 Prostate cancer 09/10/2018 Assessment & Plan (10/27/2018 9:53 AM STRETCH MACHINE OPERATOR): Follows with urology, has his PSA monitored it is increasing, but still WNL 1.4 Assessment & Plan (09/22/2018 11:35 AM STRETCH MACHINE OPERATOR): Has close follow up with his oncologist. His PSA was slightly elevated on last check. Hyperlipidemia 09/21/2017 Assessment & Plan (06/30/2018 9:38 AM CDT): His last lipid panel was within acceptable range; he will continue on a high intensity statin. Assessment & Plan (09/21/2017 11:34 AM STRETCH MACHINE OPERATOR): Continue Lipitor 40 mg daily. Essential hypertension 07/20/2017 Assessment & Plan (10/30/2022 2:57 PM STRETCH MACHINE OPERATOR): - Tight BP goals post-procedure - Continue home medications as indicated by BP goals as above, staggering overnight for gentle BP control Assessment & Plan (10/27/2018 9:54 AM STRETCH MACHINE OPERATOR): Hypertension is unchanged. Dietary sodium restriction. Blood pressure will be reassessed in 4 weeks. Assessment & Plan (09/22/2018 11:38 AM STRETCH MACHINE OPERATOR): Hypertension remains elevated. He is increasing [...] today Assessment & Plan (09/21/2017 11:33 AM STRETCH MACHINE OPERATOR): Blood pressure is well controlled today. Last visit we added HCTZ 12.5 mg daily. Continue current medications Assessment & Plan (08/10/2017 11:26 AM STRETCH MACHINE OPERATOR): Blood pressure is not controlled. Add hydrochlorothiazide 12.5 mg p.o. daily. He is compliant with medications but always add salt to food which I advised him not to do that. Assessment & Plan (07/20/2017 9:19 AM STRETCH MACHINE OPERATOR): Blood pressure remains uncontrolled. We will order renal Doppler ultrasound to rule out renal artery stenosis given the fact that he has peripheral vascular disease and coronary artery disease. I will increase amlodipine from 5-10 mg p.o. daily. If that does not control the blood pressure we will add hydrochlorothiazide 12.5 mg p.o. Daily. Coronary artery disease invo lving chenega coronary artery of chenega heart without angina pectoris 07/20/2017 Assessment & Plan (10/30/2022 9:58 AM STRETCH MACHINE OPERATOR): - Continue home medications as able - Maintained on Brilinta as an outpatient; held 1 week prior to OR - Will discuss with surgery team when to safely resume post-procedure Assessment & Plan (10/27/2018 9:59 AM STRETCH MACHINE OPERATOR): Coronary artery disease is improving with lifestyle modifications. Continue current treatment regimen. Cardiac status will be reassessed in 3 months. No chest pain. Minimal SOB. Continue asa, statin, brilinta Assessment & Plan (09/22/2018 11:36 AM STRETCH MACHINE OPERATOR): Coronary artery disease is unchanged. Regular [...] BB. Assessment & Plan (09/21/2017 11:33 AM STRETCH MACHINE OPERATOR): Continue aspirin, Brilinta, Toprol XL and atorvastatin. Assessment & Plan (08/10/2017 11:27 AM STRETCH MACHINE OPERATOR): Continue Brilinta and aspirin. Asymptomatic. Assessment & Plan (07/20/2017 9:19 AM STRETCH MACHINE OPERATOR): Continue aspirin, Brilinta, Lipitor , metoprolol [...] plan. Assessment & Plan (10/27/2018 9:21 AM STRETCH MACHINE OPERATOR): S/P bilateral ALVA angioplasty; right EIA angioplasty/stent 11/21/14. S/P aortoiliac angioplasty/stent 05/28/09. Continues on asa, statin and brilinta Assessment & Plan (09/21/2017 11:34 AM STRETCH MACHINE OPERATOR): He follows up with vascular surgery at [facility] Assessment & Plan (08/10/2017 11:27 AM STRETCH MACHINE OPERATOR): Renal ultrasound suggest more than 60% stenosis in the right renal artery and infrarenal stenosis 50-70%. He follows up with Dr. Foley from vascular surgery at [facility] Assessment & Plan (07/20/2017 9:20 AM STRETCH MACHINE OPERATOR): Patient will follow up with Dr. [...] 02/09/2019 Assessment & Plan (10/27/2018 10:17 AM STRETCH MACHINE OPERATOR): Persistent dizziness. Has stopped caffeine intake. [...] implant or graft 6 02/09/2019 Atherosclerosis of chenega artery of extremity 04/15/20 16 02/09/2019 Assessment & Plan (09/22/2018 11:26 AM STRETCH MACHINE OPERATOR): 80% circumflex s/p RICHARD. Moderate 30 % LAD with bridging Impotence of organic origin 09/18/2015 02/09/2019 Urinary tract infection 01/18/201501/29 Incontinence 01/18/2015 02/09/2019 Stricture, urethra 07/31/2011 9 Overview (12/10/2017): Description: Dilation 06/09/11 Nocturia 11/28/2010 02/09/2019 Hypertension 05/16/2009 02/09/2019 Assessment & Plan (10/27/2018 10:11 AM STRETCH MACHINE OPERATOR): Hypertension is {improving/stable/worsenin}. {plan; hypertension for POC:[id number]} Blood pressure will be reassessed {plan; follow-up 2 weeks/4weeks/3months:[id number]}. Increase amolodipine to 10 mg Continue all [...]
--- OUTSIDE RECORDS SUMMARY | 2025-05-04 12:27 | XMS_ITS | Encounter Summary ---
Author Organization [facility] Address [address] [place] [address] Phone Care Team Providers Care Winding Machine Operator Name Role Phone Fuentes Orellana MD Primary Care Provider Brent Dickinson DO Unavailable [phone] Faviola Jiménez LOADER SEMICONDUCTOR DIES, SOFTWARE TOOLS ENGINEER Unavailable Shawnee Mckinney MD Unavailable Chicho Clayton MD Unavailable Lai Lambert LOADER SEMICONDUCTOR DIES, SOFTWARE TOOLS ENGINEER Unavailable [phone] Kami Meneses MD Unavailable [phone] Anette Bond MD Unavailable [phone] Kay Gordon LOADER SEMICONDUCTOR DIES, SOFTWARE TOOLS ENGINEER Unavailable Kami Meneses MD Unavailable [phone] Kami Meneses MD Unavailable [phone] Kami Meneses MD Unavailable [phone] Reason for Visit * Reason Comments Medication Refill Encounter Details Date Type Department Care Team (Late st Contact Info) Description 10/15/2021 Refill [facility] - Gastroenterology [facility] [address] [place] [address] Ingrid Mclcoud Ashley, PAC [address] [place] [address] Medication Refill Social History Tobacco Use Types [...] 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 LAWYER documented in this encounter Plan of Treatment Not on file documented as of this encounter Visit Diagnoses Not on filedocumented in this encounter Care Teams Winding Machine Operator Relationship Specialty Start Date End Date Fuentes Orellana MD [address] [place] [address] PCP - General Family Medicine 07/06/15 Brent Dickinson DO [address] [place] [address] Gastroenterology 06/27/16 Faviola Jiménez, LOADER SEMICONDUCTOR DIES, SOFTWARE TOOLS ENGINEER [address] [place] [address] Nurse Practitioner Advanced Practice Nurse 07/22/16 Shawnee Mckinney MD [address] [facility] [address] [place] [address] Urologist Urology 06/07/19 Chicho Clayton MD [address] [facility] [address] [place] [address] Oncology 06/13/19 Lai Lambert APRN, SOFTWARE TOOLS ENGINEER [address] [place] [address] Nurse Practitioner Advanced Practice Nurse 02/10/23 Kami Meneses MD [address] [address] Consulting Physician Urology 06/16/23 Anette Bond MD [address] [place] [address] Consulting Physician Gastroenterology 12/25/22 Kay Gordon APRN, SOFTWARE TOOLS ENGINEER [address] [place] [address] Nurse Practitioner Advanced Practice Nurse 06/16/24 Kami Meneses MD [address] [address] Consulting Physician Urology 08/19/24 Kami Meneses MD [address] [address] Consulting Physician Urology 01/06/25 Kami Meneses MD [address] [facility], [address] [address] Consulting Physician Urology 03/08/25 documented as of this encounter
--- OUTSIDE RECORDS SUMMARY | 2025-05-04 12:27 | XMS_ITS | Clinical Summary ---
Author Organization [facility] Address [address], [facility] [address] [place] [address] Phone Care Team Providers Care Fence Rider Name Role Phone Fuentes Orellana MD Primary Care Provider Brent Dickinson DO Unavailable [phone] Faviola Jiménez GILL NET STRINGER, QUARTER SUPERVISOR Unavailable Shawnee Mckinney MD Unavailable Chicho Clayton MD Unavailable Lai Lambert GILL NET STRINGER, QUARTER SUPERVISOR Unavailable [phone] Kami Meneses MD Unavailable [phone] Anette Bond MD Unavailable [phone] Kay Gordon APRN, QUARTER SUPERVISOR Unavailable Kami Meneses MD Unavailable [phone] Kami Meneses MD Unavailable [phone] Kami Meneses MD Unavailable [phone] Allergies Active Allergy Reactions Criticality Noted [...] [facility] [address] [place] [address] Kami Meneses MD UTI symptoms (Primary Dx) Discharge Disposition: Discharged to home or Selfcare 04/28/2025 Travel 03/22/2025 Telephone [facility] [address] [place] [address] Kami Meneses MD Pain 03/10/2025 2:15 PM CDT Office Visit [facility] [address] [place] [address] Kami Meneses MD Stress incontinence (female) (male) [...] 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 Meneses on 04/28/2025 PVR= 18 ML [facility] [place] - SURGERY Final Result * COLONOSCOPY (05/24/2020) Brent Dickinson DO PROCEDURE/MINOR SURGICAL ORDERA BLES Final Result from Last 3 Months or Most Recently Relevant to Health Maintenance Insurance MEDICARE [facility] Care Teams Fence Rider Relationship Specialty Start Date End Date Fuentes Orellana MD [address] [facility] [place] [address] PCP - General Family Medicine 07/06/15 Brent Dickinson DO [address] [facility] [place] [address] Gastroenterology 06/27/16 Faviola Jiménez APRN, QUARTER SUPERVISOR [address] [facility] [place] [address] Nurse Practitioner Advanced Practice Nurse 07/22/16 Shawnee Mckinney MD [address] [facility] [address] [place] [address] Urologist Urology 06/07/19 Chicho Clayton MD [address] [facility] [address] [place] [address] Oncology 06/13/19 Lai Lambert APRN, QUARTER SUPERVISOR [address] [place] [address] Nurse Practitioner Advanced Practice Nurse 02/10/23 Kami Meneses MD [address] [address] Consulting Physician Urology 06/16/23 Anette Bond MD [address] [place] [address] Consulting Physician Gastroenterology 12/25/22 Kay Gordon APRN, QUARTER SUPERVISOR [address] [facility] [place] [address] Nurse Practitioner Advanced Practice Nurse 06/16/24 Kami Meneses MD [address] [facility] [address] [place] [address] Consulting Physician Urology 08/19/24 Kami Meneses MD [address] [facility] [address] [place] [address] Consulting Physician Urology 01/06/25 Kami Meneses MD [address] [facility] [address] [place] [address] Consulting Physician Urology 03/08/25
--- OUTSIDE RECORDS SUMMARY | 2025-05-04 12:27 | XMS_ITS | Clinical Summary ---
Author Organization [facility] [address] Address [address] [place] [address] Care Team Providers Care Marine Diver Name Role Phone Fuentes Orellana MD Primary Care Provider Itz Iyer MD Unavailable Shawnee Mckinney MD Unavailable [phone] Chicho Clayton MD Unavailable Maria Guadalupe Palacios RN Unavailable Unava ilable Lupillo Davenport MD Unavailable [phone] Danis Meza TRANSIT SPECIALIST Unavailable Antonette Owens NP Unavailable Aniceto [...] immediate release tabletIndicat ions:Coronary artery disease involving ambler coronary artery of ambler heart without angina pectoris TAKE 1 TABLET(25 [...] (10/21/2022): Added automatically from request for surgery [id number] Assessment & Plan (10/30/2022 2:56 PM [employer]EWEL[employer] SAL[employer]): - OR 3/2 for planned R CEA - OU status, Q2h NV/VS monitoring - Bedrest today, OOB/PT POD #1 - SBP goal 100-160, nicardipine for elevated BP - Continue aspirin and statin - Plan to stager home medications and resume overnight Atherosclerosis of ambler ar teries of extremities with intermittent claudication, bilateral legs 06/03/2022 Melanoma 01/10/2021 Anxiety 01/10/2021 DM (diabetes mellitus) 01/10/2021 Assessment & Plan (04/25/2025 6:06 AM CDT): NIDDM, on finerenon, amaryl, tradjenta. - Hold home PO diabetic meds while inpatient. Restart at discharge. - Diabetic diet, SSI Assessment & Plan (10/30/2022 9:59 AM JEWELRY SALES): - A1c 7.6% 10/2022 - SSI while inpatient - CC diet when eating Elevated left ventricular end-diastolic pressure (LVEDP) 11/15/2019 Encounter for surgical after care following surgery of circulatory system 05/20/2019 Prostate cancer 09/10/2018 Assessment & Plan (10/27/2018 9:53 AM JEWELRY SAL[employer]): Follows with urology, has his PSA monitored it is increasing, but still WNL 1.4 Assessment & Plan (09/22/2018 11:35 AM JEWELRY SALES): Has close follow up with his oncologist. His PSA was slightly elevated on last check. Hyperlipidemia 09/21/2017 Assessment & Plan (06/30/2018 9:38 AM CDT): His last lipid panel was within acceptable range; he will continue on a high intensity statin. Assessment & Plan (09/21/2017 11:34 AM J[employer] SAL[employer]): Continue Lipitor 40 mg daily. Essential hypertension 07/20/2017 Assessment & Plan (10/30/2022 2:57 PM [employer]): - Tight BP goals post-procedure - Continue home medications as indicated by BP goals as above, staggering overnight for gentle BP control Assessment & Plan (10/27/2018 9:54 AM J[employer] SAL[employer]): Hypertension is unchanged. Dietary sodium restriction. Blood pressure will be reassessed in 4 weeks. Assessment & Plan (09/22/2018 11:38 AM JEWEL[employer] SALES): Hypertension remains elevated. He is increasing his [...] today Assessment & Plan (09/21/2017 11:33 AM JEWEL[employer] SALES): Blood pressure is well controlled today. Last visit we added HCTZ 12.5 mg daily. Continue current medications Assessment & Plan (08/10/2017 11:26 AM JEWELRY SAL[employer]): Blood pressure is not controlled. Add hydrochlorothiazide 12.5 mg p.o. daily. He is compliant with medications but always add salt to food which I advised him not to do that. Assessment & Plan (07/20/2017 9:19 AM JEWELRY SALES): Blood pressure remains uncontrolled. We will order renal Doppler ultrasound to rule out renal artery stenosis given the fact that he has peripheral vascular disease and coronary artery disease. I will increase amlodipine from 5-10 mg p.o. daily. If that does not control the blood pressure we will add hydrochlorothiazide 12.5 mg p.o. Daily. Coronary artery disease invo lving ambler coronary artery of ambler heart without angina pectoris 07/20/2017 Assessment & Plan (10/30/2022 9:58 AM JEWEL[employer] SAL[employer]): - Continue home medications as able - Maintained on Brilinta as an outpatient; held 1 week prior to OR - Will discuss with surgery team when to safely resume post-procedure Assessment & Plan (10/27/2018 9:59 AM JEWEL[employer] SAL[employer]): Coronary artery disease is improving with lifestyle modifications. Continue current treatment regimen. Cardiac status will be reassessed in 3 months. No chest pain. Minimal SOB. Continue asa, statin, brilinta Assessment & Plan (09/22/2018 11:36 AM JEW[employer] SAL[employer]): Coronary artery disease is unchanged. Regular aerobic [...] BB. Assessment & Plan (09/21/2017 11:33 AM JEW[employer] SALES): Continue aspirin, Brilinta, Toprol XL and atorvastatin. Assessment & Plan (08/10/2017 11:27 AM JEWEL[employer] SALES): Continue Brilinta and aspirin. Asymptomatic. Assessment & Plan (07/20/2017 9:19 AM JEWELRY SALES): Continue aspirin, Brilinta, Lipitor , metoprolol PVD [...] plan. Assessment & Plan (10/27/2018 9:21 AM JEWELRY SALES): S/P bilateral ALVA angioplasty; right EIA angioplasty/stent 11/21/14. S/P aortoiliac angioplasty/stent 05/28/09. Continues on asa, statin and brilinta Assessment & Plan (09/21/2017 11:34 AM JEWELRY SALES): He follows up with vascular surgery at [facility] Assessment & Plan (08/10/2017 11:27 AM JEWELRY SALES): Renal ultrasound suggest more than 60% stenosis in the right renal artery and infrarenal stenosis 50-70%. He follows up with Dr. Foley from vascular surgery at [facility] Assessment & Plan (07/20/2017 9:20 AM JEWELRY SALES): Patient will follow up with Dr. Foley [...] 02/09/2019 Assessment & Plan (10/27/2018 10:17 AM J[employer]EL[employer] SAL[employer]): Persistent dizziness. Has stopped caffeine intake. Has [...] implant or graft 6 02/09/2019 Atherosclerosis of ambler artery of extremity 04/15/20 16 02/09/2019 Assessment & Plan (09/22/2018 11:26 AM [employer]EL[employer] SAL[employer]): 80% circumflex s/p RICHARD. Moderate 30 % LAD with bridging Impotence of organic origin 09/18/2015 02/09/2019 Urinary tract infection 01/18/201501/29 Incontinence 01/18/2015 02/09/2019 Stricture, urethra 07/31/2011 9 Overview (12/10/2017): Description: Dilation 06/09/11 Nocturia 11/28/2010 02/09/2019 Hypertension 05/16/2009 02/09/2019 Assessment & Plan (10/27/2018 10:11 AM J[employer]): Hypertension is {improving/stable/worsenin}. {plan; hypertension for POC:[id number]} Blood pressure will be reassessed {plan; follow-up 2 weeks/4weeks/3months:[id number]}. Increase amolodipine to 10 mg Continue all [...] CDT - 04/24/2025 11:45 AM CDT Surgery [facility] Operating Room [address] [place] [address] Aniceto Foley MD ANGIOGRAM - HYBRID ROOM aorto iliac angiogram 04/24/2025 8:30 AM CDT Anesthesia Event [facility] Operating Room 1 [place] [address] Yuko Rodriguez MD Horton, Cheryl Renee Hill, NP 04/24/2025 6:23 AM CDT - 04/26/2025 11:35 AM CDT Hospital Encounter [facility] 1 [facility] [place] [address] Aniceto Foley MD PAD (peripheral artery disease) Discharge Disposition: Discharge to home or self care 04/21/2025 Telephone [facility] Medicine Vascular Surgery [address] [facility] Medical Office Building [address] [place] [address] Aniceto Foley MD 04/05/2025 Telephone [facility] Medical Group Cardiology [address] [place] [address] Kay Ward NP 03/28/2025 11:00 AM CDT Office Visit [facility] Medicine Oncology [address] [facility] Floor 5 [place] [address] Chicho Clayton MD Prostate cancer (HCC) (Primary Dx) 03/28/2025 10:00 AM CDT Lab [facility] Medicine Oncology Lab [address] [facility] Floor 5 [place] [address] Prostate cancer (HCC) 03/28/2025 9:45 AM CDT Lab [facility] - Lab Collection [address] [facility] Floor 5 [place] [address] Prostate cancer (HCC) 03/24/2025 Orders Only [facility] Medicine Surgery [address] [place] [address] 8th [place] [address] [place] [address] Aniceto Foley MD Atherosclerosis of ambler arteries of extremities with intermittent claudication, right leg (Primary Dx) 03/17/2025 12:15 PM CDT Pre-Admission Testing [facility] Pre Anesthesia Testing [facility] [place] [address] Preoperative testing (Primary Dx) 03/16/2025 11:59 PM CDT Anesthesia Event [facility] Operating Room [facility] [place] [id number] Carrie Silva PA 03/08/2025 10:15 AM CDT Office Visit [facility] Medicine Surgery [facility] 8th [place] [address] [place] [address] Aniceto Foley MD PVD (peripheral vascular disease) (Primary Dx); Atherosclerosis of ambler arteries of extremities with intermittent claudication, bilateral legs 03/08/2025 9:30 AM CDT Ancillary Procedure [facility] Vascular Lab at the [facility] Advanced Medicine [address] [facility] Advanced Medicine 8th [place] [address] Atherosclerosis of ambler arteries of extremities with intermittent claudication, bilateral legs 03/08/2025 7:49 AM CDT - 03/08/2025 11:59 PM CDT Hospital Encounter [facility] Rad[facility] [address] [place] [address] PVD (peripheral vascular disease) Discharge Disposition: Discharge to home or self care 02/27/2025 Telephone [facility] Medical [facility] Cardiology [address] [place] [address] Kay Ward NP 02/07/2025 Telephone [facility] Cardiology [address] [place] [address] Kay Ward NP from Last 3 Months [...] INTRAOCULAR LENS IMPLANT Right 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 CARDIAC CATHETERIZATION 04/24/2025 N/A Procedure: Percutaneous Lithotripsy Shockwave; Surgeon: Aniceto Foley MD; Location: [facility] OR POD 3; Service: Vascular; Laterality: N/A; [...] drink = 0.6 oz pur e alcohol) [place] Utilities Answer Date Recorded In the past 12 months has th e electric, gas, oil, or water [facility] [employer] [facility] threatened to shut off services in your [...] often do you attend chur ch or restorationism services? More than 4 times per year 11/11/2024 Do you belong to any clubs o r organizations such as hinduism groups, unions, fraternal or athletic groups, or [...] were you homeless or living in a [place] facility (including now)? No 11/11/2024 AUDIT-C Answer Date [...] on file Legal Sex Male 12:32 AM [employer]EWELRY SALES Gender Identity Not on file Sexual Orientation [...] Visit 65+ 2014 Covid-19 Vaccine (3 - 2024-2 6 season) 2025 11/25/2020, 11/01/2020 Influenza Vaccine (#1) 2025 , [...] history exists Medical Devices Implanted Type Area Natural Sciences Professor Device Identifier Shelf Expiration Date Model / Serial / Lot Other - See Comments-05/17/20 15 Implanted:2014 (Quantity not on file) Other - see comments Bladder Description:Bladder control Stent Stent Bilateral: Groin Description:Per pt 4-5 stent s Stent Stent N/A: Heart [employer] Sandra Express Ld Tandem Architecture 8mm 17mm 135cm Otw [place] [id number] - [id number] Implanted:Qty: 1 on 04/24/2025 by Aniceto Foley MD at [facility] Stent N/A: Infrarenal Aorta [employer] Sandra [id number] 10/12/2026 [id number] / / [id number] [employer] Stent Graft Endoprosthesis Reduced Profile Straight Heparin Coated Viabahn [id number] - [id number] - [id number] Implanted:Qty: 1 on 04/24/2025 by Aniceto Foley MD at [facility] Stent N/A: Infrarenal Aorta [employer] [id number] 08/05/2027 [id number] / [id number] / [employer] Stent Graft Endoprosthesis Reduced Profile Straight Heparin Coated Viabahn [id number] - [id number] - [id number] Implanted:Qty: 1 on 04/24/2025 by Aniceto Foley MD at [facility] Stent Right: Iliac [employer] [id number] 10/02/2027 [id number] / [id number] / [employer] Stent Graft Endoprosthesis Reduced Profile Straight Heparin Coated Viabahn [id number] - [id number] - [id number] Implanted:Qty: 1 on 04/24/2025 by Aniceto Foley MD at [facility] Stent Left: Iliac [employer] [id number] 07/31/2027 [id number] / [id number] / [employer] Stent Graft Endoprosthesis Reduced Profile Straight Heparin Coated Viabahn [id number] - [id number] - [id number] Implanted:Qty: 1 on 04/24/2025 by Aniceto Foley MD at [facility] Stent Right: External Iliac Artery [employer] [id number] 09/21/2027 [id number] / [id number] / [employer] Stent Graft Endoprosthesis Reduced Profile Straight Heparin Coated Viabahn [id number] - [id number] - [id number] Implanted:Qty: 1 on 04/24/2025 by Aniceto Foley MD at [facility] Stent Right: Iliac [employer] [id number] 11/07/2027 [id number] / [id number] / [employer] Device Vascular Closure Femoral Artery Bioabsorbable Dual Method Vascade 6-7fr Collagen [id number] - [id number] Implanted:Qty: 1 on 04/24/2025 by Arturo Hopkins MD at [facility] Vascular Closure Device Right: Groin [employer] [id number] 01/16/2027 [id number]- 05U / / [id number] [employer] Device Vascular Closure Femoral Artery Bioabsorbable Dual Method Vascade 6-7fr Collagen [id number] - [id number] Implanted:Qty: 1 on 04/24/2025 by Arturo Hopkins MD at [facility] Vascular Closure Device Left: Groin [employer] [id number] 01/16/2027 [id number]- 05U / / Stent Right: Eye Artificail Urinary Sphincter-05/08/20 15 Implanted:2014 by Shawnee Mckinney MD (Quantity not on file) N/A: Urethra Description:05/08/2019 Placeme nt of artificial urinary sphincter with a 3.5 cm cuff and 61 to 70 cm pressure-regulating balloon. [facility] Sandra Vascu-Guard 8x.8cm Peripheral Patch Vascular Bovine Pericardium Vg-[id number] - [id number] Implanted:Qty: 1 on 10/30/2022 by Aniceto Foley MD at [facility] Right: Carotid [facility] Sandra [id number] 07/09/2023 [id number]-[id number] / / [id number] [employer] Sandra Ams 800 Kit Accessory Sterile Disposable Latex Free Urinary [id number] - [id number] Implanted:Qty: 1 on 11/09/2024 by Kami Meneses MD at [facility] N/A: Urethra [employer] Sandra [id number] 03/09/2029 [id number] / / [id number] [employer] Sandra Cuff Urethral Ams 800 Inhibizone 3.5cm [id number] - [id number] Implanted:Qty: 1 on 11/09/2024 by Kami Meneses MD at [facility] N/A: Urethra [employer] Sandra [id number] 02/22/2026 [id number] / / [id number] [employer] Sandra Ams 800 Pressure Balloon Sphincter 61-70cu Cm Implant Urological [id number] - [id number] Implanted:Qty: 1 on 11/09/2024 by Kami Meneses MD at [facility] N/A: Abdomen [employer] Sandra [id number] 03/20/2029 [id number] / / [id number] [employer] Sandra Ams 800 Control Pump Sphincter Implant Urological Inhibizone [id number] - [id number] Implanted:Qty: 1 on 11/09/2024 by Kami Meneses MD at [facility] N/A: Scrotum [employer] Sandra [id number] 02/15/2026 [id number] / / [id number] Procedures Procedure Name Priority Date/Time Associated [...] disease) PERCUTANEOUS CORONARY LITHROTRIPSY W/ PCI (+) 14444 Routine 04/24/2025 11:50 AM CDT PAD (peripheral [...] CHEMISTRIES, ARTERIAL Routine 04/24/2025 9:41 AM CDT GA AN PROCEDURE PLACEHOLDER Routine 04/24/2025 9:20 AM CDT GA AN PROCEDURE PLACEHOLDER Routine 04/24/2025 9:19 AM CDT GA AN PROCEDURE PLACEHOLDER Routine 04/24/2025 9:18 AM CDT GA AN PROCEDURE PLACEHOLDER Routine 04/24/2025 8:50 AM CDT GA AN ELECTIVE ENDOTRACHEAL AIRWAY Routine 04/24/2025 8:50 [...] Routine) 03/08/2025 9:29 AM CDT Atherosclerosis of ambler arteries of extremities with intermittent claudication, bilateral [...] - DEVICE Final Result Performing Organization Address [facility] Co de Phone Number [facility] [employer] [place] [address] * POCT glucose (04/25/2025 8:32 PM CDT) Glucose, POC 197 70 - 199 mg/dL Blood 04/25/2025 8:32 PM CDT 04/25/2025 8:32 PM CDT us Aniceto Foley MD LAB POCT ORDERABLES - DEVICE Final Result Performing Organization Address [facility] Co de Phone Number [facility] [place] [address] * POCT glucose (04/25/2025 5:11 PM CDT) Glucose, POC 160 70 - 199 mg/dL Comment:Glu2: RN/ Notified Glucose comment 1 Glu2: RN/MD Notified [facility] Blood 04/25/2025 5:11 PM CDT 04/25/2025 5:11 PM CDT us Aniceto Foley MD LAB POCT ORDERABLES - DEVICE Final Result Performing Organization Address [facility] Co de Phone Number [facility] [place] [address] * POCT glucose (04/25/2025 11:30 AM CDT) Glucose, POC 174 70 - 199 mg/dL Comment:Glu2: RN/ Notified Glucose comment 1 Glu2: RN/MD Notified [facility] Blood 04/25/2025 11:3 0 AM CDT 04/25/2025 11:30 AM CDT us Aniceto Foley MD LAB POCT ORDERABLES - DEVICE Final Result [facility] Department [place] [address] * POCT glucose (04/25/2025 7:30 AM CDT) [facility] Glucose, POC 121 70 - 199 mg/dL Comment:Glu2: RN/MD Notified Glucose comment 1 Glu2: RN/MD Notified [facility] Blood 04/25/2025 7:30 AM CDT 04/25/2025 7:30 AM CDT us Aniceto Foley MD LAB POCT ORDERABLES - DEVICE Final Result Performing Organization Address [facility] Co de Phone Number [facility] [place] [address] * (ABNORMAL) eGFR (04/25/2025 1:25 AM CDT) [facility] eGFR 54(L) >=60 mL/min/1. 73 m2 Comment: [...] CDT 04/25/2025 1:51 AM CDT us Aniceto oFley MD LAB BLOOD ORDERABLES Final Re sult Performing Organization Address [facility] de Phone Number [facility] of [employer] [place] [address] * (ABNORMAL) CBC without differential (04/25/2025 1:25 AM CDT) [facility] WBC 7.83 3.80 - 9.90 K/cumm Hgb 9.7(L) 13.0 - 17.5 g/dL [facility] Hct 29.1(L) 38.9 - 50.3 % [facility] Plt 151 150 - 400 K/cumm [facility] MPV 11.1 9.1 - 12.3 fL [facility] RBC 3.13(L) 4.30 - 5.80 M/cumm [facility] MCV 93.0 81.3 - 96.4 fL [facility] MCH 31.0 27.1 - 33.3 pg [facility] MCHC 33.3 32.3 - 35.7 g/dL [facility] RDW CV 15.3(H) 11.1 - 14.9 % [facility] RDW SD 51.3(H) 35.7 - 48.1 fL [facility] NRBC abs 0.00 0.00 - 0.01 K/cumm [facility] Blood 04/25/2025 1:25 AM CDT 04/25/2025 1:53 AM CDT Aniceto Foley MD LAB BLOOD ORDERABLES Final Re sult Performing Organization Address [facility] Co de Phone Number [facility] Department of [employer] [place] [address] * (ABNORMAL) Basic metabolic panel (04/25/2025 1:25 AM CDT) [facility] Sodium 145 135 - 145 mmol/L Potassium, pl 4.4 3.3 - 4.9 mmol/L [facility] Chloride 111(H) 97 - 110 mmol/L [facility] CO2 27 22 - 32 mmol/L [facility] Anion gap 7 2 - 15 mmol/L [facility] BUN 27(H) 6 - 25 mg/dL [facility] Creatinine 1.36(H) 0.80 - 1.30 mg/dL [facility] Glucose 107 70 - 199 mg/dL [facility] Comment: Interpretive Data Fasting glucose [...] 2022. Calcium 10.1 8.5 - 10.3 mg/dL [facility] Blood 04/25/2025 1:25 AM CDT 04/25/2025 1:51 AM CDT us Aniceto Foley MD LAB BLOOD ORDERABLES Final Re sult [facility] Department of [employer] [place] [address] * POCT glucose (04/24/2025 8:19 PM CDT) Glucose, POC 112 70 - 199 mg/dL Blood 04/24/2025 8:19 PM CDT 04/24/2025 8:19 PM CDT us Aniceto Foley MD LAB POCT ORDERABLES - DEVICE Final Result [facility] [employer] [place] [address] * POCT glucose (04/24/2025 4:59 PM CDT) Glucose, POC 136 70 - 199 mg/dL Comment:Glu2: RN/ Notified Glucose comment 1 Glu2: RN/ Notified [facility] Blood 04/24/2025 4:59 PM CDT 04/24/2025 4:59 PM CDT us Aniceto Foley MD LAB POCT ORDERABLES - DEVICE Final Result Performing Organization Address [facility] Co de Phone Number [facility] Department [place] [address] * (ABNORMAL) eGFR (04/24/2025 12:22 PM CDT) [...] ORDERABLES Final Re sult Performing Organization Address [facility] Co de Phone Number [facility] Department [place] [address] * (ABNORMAL) CBC without differential (04/24/2025 12:22 PM CDT) WBC 4.97 3.80 - 9.90 K/cumm Hgb 9.4(L) 13.0 - 17.5 g/dL [facility] Hct 28.9(L) 38.9 - 50.3 % [facility] Plt 141(L) 150 - 400 K/cumm [facility] MPV 11.2 9.1 - 12.3 fL [facility] RBC 3.09(L) 4.30 - 5.80 M/cumm [facility] MCV 93.5 81.3 - 96.4 fL [facility] MCH 30.4 27.1 - 33.3 pg [facility] MCHC 32.5 32.3 - 35.7 g/dL [facility] RDW CV 15.2(H) 11.1 - 14.9 % [facility] RDW SD 51.5(H) 35.7 - 48.1 fL [facility] NRBC abs 0.00 0.00 - 0.01 K/cumm [facility] Blood 04/24/2025 12:2 2 PM CDT 04/24/2025 12:39 PM CDT Aniceto Foley MD LAB BLOOD ORDERABLES Final Re sult [facility] Department [place] [address] * Lipid panel (04/24/2025 12:22 PM CDT) [...] revised on 2018. Triglycerides 75 <=149 mg/dL [facility] Comment: Interpretive [...] revised on 2018. HDL 42 >=40 mg/dL [facility] Comment: [...] on 2018. LDL, calculated 78 <=129 mg/dL [facility] Comment: [...] revised on 2024. Non-HDL Cholesterol 93 mg/dL [facility] Comment: Interpretive [...] last revised on 2018. Chol/HDL ratio 3 [facility] Blood 04/24/2025 12:2 2 PM CDT 04/24/2025 12:39 PM CDT Aniceto Foley MD LAB BLOOD ORDERABLES Final Re sult [facility] Department [place] [address] * (ABNORMAL) Basic metabolic panel (04/24/2025 12:22 PM CDT) Sodium 140 135 - 145 mmol/L Potassium, pl 4.3 3.3 - 4.9 mmol/L [facility] Chloride 108 97 - 110 mmol/L [facility] CO2 26 22 - 32 mmol/L [facility] Anion gap 6 2 - 15 mmol/L [facility] BUN 32(H) 6 - 25 mg/dL [facility] Creatinine 1.29 0.80 - 1.30 mg/dL [facility] Glucose 117 70 - 199 mg/dL [facility] Comment: Interpretive Data Fasting glucose [...] 2022. Calcium 9.9 8.5 - 10.3 mg/dL [facility] Blood 04/24/2025 12:2 2 PM CDT 04/24/2025 12:39 PM CDT us Aniceto Foley MD LAB BLOOD ORDERABLES Final Re sult Performing Organization Address City/[facility]/ZIP Co de Phone Number [facility] Department of [employer] [place] [address] * POCT glucose (04/24/2025 12:11 PM CDT) Glucose, POC 121 70 - 199 mg/dL Blood 04/24/2025 12:1 1 PM CDT 04/24/2025 12:11 PM CDT us Aniceto Foley MD LAB POCT ORDERABLES - DEVICE Final Result Performing Organization Address [facility] Co de Phone Number [facility] Department of [employer] [place] [address] * ANGIOGRAM - HYBRID ROOM, PLACEMENT STENT - ILIAC ARTERY - HYBRID ROOM (04/24/2025 11:50 AM CDT) Anatomical Region Laterality Modality X-Ray Angiograph y Narrative 04/24/2025 3:00 PM CDT Please see OpNote for result. us Aniceto Foley MD SURGICAL CASE ORDERS Final Re sult * ANGIOPLASTY BALLOON/STENT PLACEMENT, PERCUTANEOUS CORONARY LITHROTRIPSY W/ PCI (+) [id number] (04/24/2025 11:50 AM CDT) Anatomical Region Laterality Modality X-Ray Angiograph y Narrative 04/24/2025 3:00 PM CDT Please see OpNote for result. us Aniceto Foley MD CV CARDIAC CATH PROCEDURES Fi nal Result * POCT Activated clotting time, low range (04/24/2025 11:25 AM CDT) ACT 133 123 - 168 sec POC Device Number [id number] [facility] Blood 04/24/2025 11:2 5 AM CDT 04/24/2025 11:25 AM CDT us Aniceto Foley MD LAB POCT ORDERABLES - DEVICE Final Result Performing Organization Address [facility] Co de Phone Number [facility] [employer] [place] [address] * (ABNORMAL) POCT Activated clotting time, low range (04/24/2025 11:19 AM CDT) ACT 253(H) 123 - 168 sec POC Device Number [id number] [facility] Blood 04/24/2025 11:1 9 AM CDT 04/24/2025 11:19 AM CDT us Aniceto Foley MD LAB POCT ORDERABLES - DEVICE Final Result Performing Organization Address [facility] Co de Phone Number [facility] [employer] [place] [address] * (ABNORMAL) POCT Activated clotting time, low range (04/24/2025 10:59 AM CDT) ACT 265(H) 123 - 168 sec POC Device Number [id number] [facility] Blood 04/24/2025 10:5 9 AM CDT 04/24/2025 10:59 AM CDT us Aniceto Foley MD LAB POCT ORDERABLES - DEVICE Final Result Performing Organization Address City/[facility]/ZIP Co de Phone Number [facility] [employer] [place] [address] * (ABNORMAL) POCT Activated clotting time, low range (04/24/2025 10:33 AM CDT) ACT 253(H) 123 - 168 sec POC Device Number [id number] [facility] Blood 04/24/2025 10:3 3 AM CDT 04/24/2025 10:33 AM CDT us Aniceto Foley MD LAB POCT ORDERABLES - DEVICE Final Result Performing Organization Address [facility] [place] [address] * (ABNORMAL) POCT Activated clotting time, low range (04/24/2025 10:00 AM CDT) ACT 260(H) 123 - 168 sec POC Device Number [id number] [facility] Blood 04/24/2025 10:0 0 AM CDT 04/24/2025 10:00 AM CDT us Aniceto Foley MD LAB POCT ORDERABLES - DEVICE Final Result Performing Organization Address [facility] de Phone Number [facility] Department of [employer] [place] [address] * (ABNORMAL) POCT Activated clotting time, low range (04/24/2025 9:48 AM CDT) ACT 213(H) 123 - 168 sec POC Device Number [id number] [facility] Blood 04/24/2025 9:48 AM CDT 04/24/2025 9:48 AM CDT us Aniceto Foley MD LAB POCT ORDERABLES - DEVICE Final Result Performing Organization Address [facility] Co de Phone Number [facility] Department [place] [address] * (ABNORMAL) POC Blood Gas and Chemistries, Arterial - (04/24/2025 9:41 AM CDT) pH, Art POC 7.45 7.35 - 7.45 pCO2, Art POC 36 35 - 45 mmHg [facility] pO2, Art POC 190(H) 83 - 108 mmHg [facility] Na, POC 141 135 - 145 mmol/L [facility] K POC 4.5 3.3 - 4.9 mmol/L [facility] Comment: Interpretive Data Not all point of care methods assess for hemolysis. Confirm with instrument and retest K+ if not consistent with clinical signs and symptoms. Current Interpretive Data was last revised on 2023. Cl, POC 113(H) 97 - 110 mmol/L [facility] Ionized Ca, POC 5.78(H) 4.50 - 5.10 mg/dL [facility] Glucose, POC 136 70 - 199 mg/dL [facility] Lactate POC 1.1 0.7 - 2.0 mmol/L [facility] SO2 (samuel) arterial 99(H) 90 - 95 % [facility] Base excess, POC 1.1 mmol/L [facility] HCO3, Art POC 26 20 - 30 mmol/L [facility] Hct, POC 31.0(L) 41.4 - 51.6 % [facility] Total Hb, POC 10.3(L) 13.8 - 17.2 g/dL [facility] Blood 04/24/2025 9:41 AM CDT 04/24/2025 9:41 AM CDT us Aniceto Foley MD LAB POCT ORDERABLES - DEVICE Final Result [facility] Department [place] [address] * GA AN PROCEDURE PLACEHOLDER (04/24/2025 9:20 AM CDT) Narrative Jorge Sánchez CRNA - 04/24/2025 9:20 AM CDT Jorge Sánchez CRNA 04/24/2025 9:21 AM Peripheral IV Catheter Patient location: OR Staff: Placed by: OXYGEN EQUIPMENT TECHNICIAN: Jorge Sánchez CRNA Preprocedure prep: Prep solution: [...] MD ANESTHESIA ORDERABLES Fi nal Result * GA AN PROCEDURE PLACEHOLDER (04/24/2025 9:19 AM CDT) [...] MD ANESTHESIA ORDERABLES Fi nal Result * GA AN PROCEDURE PLACEHOLDER (04/24/2025 9:18 AM CDT) Jorge Sullivan CRNA - 04/24/2025 9:18 AM CDT Jorge Sánchez CRNA 04/24/2025 9:19 AM Arterial Line Patient location: OR Indication: continuous blood pressure monitoring and blood sampling needed Ultrasound assisted: yes Staff: Placed by: OXYGEN EQUIPMENT TECHNICIAN: Jorge Sánchez CRNA Other staff: Yonas Meredith [...] MD ANESTHESIA ORDERABLES Fi nal Result * GA AN ELECTIVE ENDOTRACHEAL AIRWAY, GA AN PROCEDURE PLACEHOLDER (04/24/2025 8:50 AM CDT) Narrative Jorge Sánchez CRNA - 04/24/2025 8:50 AM CDT Jorge Sánchez CRNA 04/24/2025 8:53 AM Airway Patient location: OR Date/time: 04/24/2025 8:47 AM Indications for airway management: anesthesia Difficult airway: no Staff: Supervising provider: Yuko Rodriguez MD Placed by: Anesthesiologist: Yuko Rodriguez MD Other staff: Yonas Meredith Emergent airway [...] 4 blade w grade 2b view us Yuok Rodriguez MD ANESTHESIA ORDERABLES Fi nal Result * POCT glucose (04/24/2025 7:26 AM CDT) Glucose, POC 135 70 - 199 mg/dL Blood 04/24/2025 7:26 AM CDT 04/24/2025 7:26 AM CDT us Aniceto Foley MD LAB POCT ORDERABLES - DEVICE Final Result [facility] [place] [address] * Type and screen (04/24/2025 7:18 AM CDT) Ashlee, indirect Negative ABO Rh A Negative [facility] Blood 04/24/2025 7:18 AM CDT 04/24/2025 7:31 AM CDT Narrative [facility] - 04/24/2025 8:34 AM CDT Has the patient had Daratumumab or Isatuximab in the past 6 months?->Unknown Aniceto Foley MD LAB BLOOD BANK TEST ORDERABLE S Final Result Performing Organization Address City/[facility]/ZIP Co de Phone Number [facility] [employer] [place] [address] * Prepare RBC: 2 Units (04/24/2025 6:46 AM CDT) Product code [id number] [facility] Unit Number [id number] 3-M [facility] Product Blood Type ANEG [facility] Dispense Status RETURNED [facility] Product code [id number] Unit Number [id number] 5-D [facility] Product Blood Type ANEG [facility] Dispense Status RETURNED [facility] Blood 04/24/2025 6:46 AM CDT 04/24/2025 6:46 AM CDT Narrative [facility] - 04/24/2025 11:58 AM CDT Specify Procedure:->Vascular surgery Are special requirements needed? (All products are leukoreduced and CMV- safe)- >No Date required:-[id number] LRRBC # of [id number] Reasons:-Hold for procedure (specify procedure)} Aniceto Foley MD BLOOD BANK PRODUCT ORDERABLES Final Result Performing Organization Address City/[facility]/ZIP Co de Phone Number [facility] [employer] [place] [address] * Differential, auto (03/28/2025 9:50 AM CDT) Pathologist [facility] Neutrophil abs 4.37 1.50 - 6.50 K/cumm Comment:Testing performed by : [facility], [address] [place], [place] [id number] Lymphocyte abs 1.46 0.80 - 3.30 K/cumm [facility] Comment:Testing performed by : [facility], [address] [place], [place] [id number] Monocyte abs 0.50 0.20 - 0.80 K/cumm [facility] Comment:Testing performed by : [facility], [address] [place] [address] Eosinophil abs 0.15 0.00 - 0.50 K/cumm [facility] Comment:Testing performed by : [facility], [address] [place], [place] [phone] Basophil abs 0.04 0.00 - 0.10 K/cumm [facility] Comment:Testing performed by : [facility], [address] [place], [place] [id number] Neutrophil pct 67.0 % [facility] Comment: Interpretive Data Percent cell count reference ranges are not reported, since discordance with absolute values may lead to misinterpretation of CBC data. Current Interpretive Data was last revised on 2017. Testing performed by: [facility], [address] [place] [address] Lymphocyte pct 22.4 % [facility] Comment: Interpretive Data Percent cell count reference ranges are not reported, since discordance with absolute values may lead to misinterpretation of CBC data. Current Interpretive Data was last revised on 2017. Testing performed by: [facility], [address] [place] [address] Monocyte pct 7.7 % [facility] Comment: Interpretive Data Percent cell count reference ranges are not reported, since discordance with absolute values may lead to misinterpretation of CBC data. Current Interpretive Data was last revised on 2017. Testing performed by: [facility], [address] [place], [place] [id number] Eosinophil pct 2.3 % [facility] Comment: Interpretive Data Percent cell count reference ranges are not reported, since discordance with absolute values may lead to misinterpretation of CBC data. Current Interpretive Data was last revised on 2017. Testing performed by: [facility], [address] [place] [id number] Basophil pct 0.6 % [facility] Comment: Interpretive Data Percent cell count reference ranges are not reported, since discordance with absolute values may lead to misinterpretation of CBC data. Current Interpretive Data was last revised on 2017. Testing performed by: [facility], [address] [place] [address] Blood 03/28/2025 9:50 AM CDT 03/28/2025 9:52 AM CDT us Chicho Clayton MD LAB BLOOD ORDERABLES Final Resul t [facility] Department [place] [address] * (ABNORMAL) CBC with auto differential (03/28/2025 9:50 AM CDT) WBC 6.53 3.80 - 9.90 K/cumm Comment:Testing performed by : [facility], [address] [place] [address] Hgb 11.1(L) 13.0 - 17.5 g/dL [facility] Comment:Testing performed by : [facility], [address] [place] [address] Hct 32.5(L) 38.9 - 50.3 % [facility] Comment:Testing performed by : [facility], [address] [place] [address] Plt 162 150 - 400 K/cumm [facility] Comment:Testing performed by : [facility], [address] [place] [address] MPV 8.3 6.8 - 10.4 fL [facility] Comment:Testing performed by : [facility], [address] [place] [address] RBC 3.50(L) 4.30 - 5.80 M/cumm [facility] Comment:Testing performed by : [facility], [address] [place] [address] MCV 92.8 81.3 - 96.4 fL [facility] Comment:Testing performed by : [facility], [address] [place] [address] MCH 31.6 27.1 - 33.3 pg [facility] Comment:Testing performed by : [facility], [address] [place] [address] MCHC 34.0 32.3 - 35.7 g/dL [facility] Comment:Testing performed by : [facility], [address] [place] [address] RDW CV 16.1(H) 11.1 - 14.9 % [facility] Comment:Testing performed by : [facility], [address] [place] [address] NRBC abs 0.00 0.00 - 0.01 K/cumm [facility] Comment:Testing performed by : [facility], [address] [place] [address] Blood 03/28/2025 9:50 AM CDT 03/28/2025 9:52 AM CDT us Chicho Clayton MD LAB BLOOD ORDERABLES Final Resul t [facility] Department [place] [address] * (ABNORMAL) eGFR (03/28/2025 9:50 [...] ORDERABLES Final Resul t Performing Organization Address [facility] de Phone Number [facility] [employer] [place] [address] * (ABNORMAL) PSA diagnostic (03/28/2025 9:50 AM [...] ORDERABLES Final Resul t Performing Organization Address [facility] de Phone Number [facility] Department [place] [address] * Lactate dehydrogenase (LD) (03/28/2025 9:50 AM CDT) Lactate dehydrogenase (LDH) 118 100 - 250 Units/L Blood 03/28/2025 9:50 AM CDT 03/28/2025 9:53 AM CDT us Chicho Clayton MD LAB BLOOD ORDERABLES Final Resul t [facility] Department [place] [address] * (ABNORMAL) Comprehensive metabolic panel (03/28/2025 9:50 AM CDT) Pathologist [facility] Sodium 141 135 - 145 mmol/L Potassium, pl 4.8 3.3 - 4.9 mmol/L [facility] Chloride 109 97 - 110 mmol/L [facility] CO2 26 22 - 32 mmol/L [facility] Anion gap 6 2 - 15 mmol/L [facility] BUN 35(H) 6 - 25 mg/dL [facility] Creatinine 1.53(H) 0.80 - 1.30 mg/dL [facility] Glucose 163 70 - 199 mg/dL [facility] Comment: Interpretive Data Fasting glucose [...] 2022. Calcium 10.5(H) 8.5 - 10.3 mg/dL [facility] Bilirubin, total 0.3 0.1 - 1.2 mg/dL [facility] Protein, pl 6.7 6.5 - 8.5 g/dL [facility] Albumin 3.7 3.5 - 5.0 g/dL [facility] Alk phos 75 40 - 130 Units/L [facility] ALT 19 7 - 55 Units/L [facility] AST 18 10 - 50 Units/L [facility] Blood 03/28/2025 9:50 AM CDT 03/28/2025 9:53 AM CDT us Chicho Clayton MD LAB BLOOD ORDERABLES Final Resul t Performing Organization Address City/[facility]/ZIP Co de Phone Number [facility] Department [place] [address] * (ABNORMAL) eGFR (03/17/2025 1:05 PM CDT) [...] NP LAB BLOOD ORDERABLES Fi nal Result [facility] [address] Department [place] [address] * Differential, auto (03/17/2025 1:05 PM CDT) Neutrophil abs 5.18 1.50 - 6.50 K/cumm Imm gran abs 0.10 0.00 - 0.10 K/cumm [facility] Lymphocyte abs 1.75 0.80 - 3.30 K/cumm [facility] Monocyte abs 0.65 0.20 - 0.80 K/cumm [facility] Eosinophil abs 0.14 0.00 - 0.50 K/cumm [facility] Basophil abs 0.05 0.00 - 0.10 K/cumm [facility] Neutrophil pct 65.8 % [facility] Comment: Interpretive Data Percent cell count reference ranges are not reported, since discordance with absolute values may lead to misinterpretation of CBC data. Current Interpretive Data was last revised on 2017. Imm gran pct 1.3 % [facility] Comment: Interpretive Data Percent cell count reference ranges are not reported, since discordance with absolute values may lead to misinterpretation of CBC data. Current Interpretive Data was last revised on 2017. Lymphocyte pct 22.2 % [facility] Comment: Interpretive Data Percent cell count reference ranges are not reported, since discordance with absolute values may lead to misinterpretation of CBC data. Current Interpretive Data was last revised on 2017. Monocyte pct 8.3 % [facility] Comment: Interpretive Data Percent cell count reference ranges are not reported, since discordance with absolute values may lead to misinterpretation of CBC data. Current Interpretive Data was last revised on 2017. Eosinophil pct 1.8 % [facility] Comment: Interpretive Data Percent cell count reference ranges are not reported, since discordance with absolute values may lead to misinterpretation of CBC data. Current Interpretive Data was last revised on 2017. Basophil pct 0.6 % [facility] Comment: Interpretive Data Percent cell count reference ranges are not reported, since discordance with absolute values may lead to misinterpretation of CBC data. Current Interpretive Data was last revised on 2017. Blood 03/17/2025 1:05 PM CDT 03/17/2025 1:05 PM CDT Sagrario Fernandez TRANSIT SPECIALIST LAB BLOOD ORDERABLES Fi nal Result Performing Organization Address [facility] de Phone Number [facility] [address] [place] [address] * (ABNORMAL) CBC with auto differential (03/17/2025 1:05 PM CDT) [facility] WBC 7.87 3.80 - 9.90 K/cumm Hgb 11.5(L) 13.0 - 17.5 g/dL [facility] Hct 35.4(L) 38.9 - 50.3 % [facility] Plt 174 150 - 400 K/cumm [facility] MPV 10.8 9.1 - 12.3 fL [facility] RBC 3.72(L) 4.30 - 5.80 M/cumm [facility] MCV 95.2 81.3 - 96.4 fL [facility] MCH 30.9 27.1 - 33.3 pg [facility] MCHC 32.5 32.3 - 35.7 g/dL [facility] RDW CV 14.6 11.1 - 14.9 % [facility] RDW SD 50.9(H) 35.7 - 48.1 fL [facility] NRBC abs 0.00 0.00 - 0.01 K/cumm [facility] Blood 03/17/2025 1:05 PM CDT 03/17/2025 1:05 PM CDT Sagrario Fernandez TRANSIT SPECIALIST LAB BLOOD ORDERABLES Fi nal Result Performing Organization Address [facility]/ZIP Co de Phone Number [facility] [address] Department of [employer] [place] [address] * aPTT (03/17/2025 1:05 PM CDT) [facility] [...] Fi nal Result Performing Organization Address [facility] de Phone Number [facility] [address] [facility] [employer] [place] [address] * Protime-INR (03/17/2025 1:05 PM CDT) PT 10.7 9.7 - 13.0 sec INR 0.99 0.90 - 1.20 [facility] Comment: Interpretive data Oral anticoagulant therapeutic ranges: Venous thromboembolism prophylaxis or treatment: 2.0-3.0 CARDIOLOGY Standard range: 2.0-3.0 High-intensity range: 2.5-3.5 Refer to indication-specific guidelines for appropriate target ranges for prosthetic heart valve replacement. Current interpretive data was last revised on 2019. Blood 03/17/2025 1:05 PM CDT 03/17/2025 1:05 PM CDT Sagrario Fernandez NP LAB BLOOD ORDERABLES Fi nal Result Performing Organization Address [facility] de Phone Number [facility] [address] [facility] [employer] [place] [address] * (ABNORMAL) Hemoglobin A1c (03/17/2025 1:05 PM CDT) Hgb A1C 6.7(H) 4.0 - 5.6 % Estimated Average Glucose 146 mg/dL [facility] Comment: The ADA recommends reporting an estimated Average Glucose (eAG) with all Hemoglobin A1c results using the equation derived from a study of 507 normal and diabetic adults. Minority populations were underrepresented and children were not included. (Diabetes Care 31:5371-9136, 2008). The eAG is not equivalent to a fasting glucose. Blood 03/17/2025 1:05 PM CDT 03/17/2025 1:05 PM CDT Sagrario Fernandez NP LAB BLOOD ORDERABLES Fi nal Result Performing Organization Address City/[facility]/ZIP Co de Phone Number [facility] [address] Department of [employer] [place] [address] * (ABNORMAL) Basic metabolic panel (03/17/2025 1:05 PM CDT) [facility] Sodium 139 135 - 145 mmol/L Potassium, pl 4.3 3.3 - 4.9 mmol/L [facility] Chloride 105 97 - 110 mmol/L [facility] CO2 23 22 - 32 mmol/L [facility] Anion gap 11 2 - 15 mmol/L [facility] BUN 35(H) 6 - 25 mg/dL [facility] Creatinine 1.31(H) 0.80 - 1.30 mg/dL [facility] Glucose 76 70 - 199 mg/dL [facility] Comment: Interpretive Data Fasting glucose >/= 126 [...] 2022. Calcium 10.9(H) 8.5 - 10.3 mg/dL [facility] Blood 03/17/2025 1:05 PM CDT 03/17/2025 1:05 PM CDT Sagrario Fernandez TRANSIT SPECIALIST LAB BLOOD ORDERABLES Fi nal Result Performing Organization Address City/[facility]/ZIP Co de Phone Number [facility] [address] Department [employer] [place] [address] * Type and screen (03/17/2025 1:04 PM CDT) ABO Rh A Negative Ashlee, indirect Negative [facility] Blood 03/17/2025 1:04 PM CDT 03/17/2025 1:25 PM CDT Narrative [facility] - 03/17/2025 2:11 PM CDT Is this test being ordered in advance for a procedure?->Yes Expected date of procedure:->04/03/25 Has the patient been transfused in the past 3 months?->No Sagrario Fernandez NP LAB BLOOD BANK TEST ORD ERABLES Final Result Performing Organization Address City/[facility]/ZIP Co de Phone Number [facility] [address] Department [place] [address] * ECG 12 lead (03/17/2025 12:53 PM CDT) 03/17/2025 12:5 3 PM CDT Narrative [facility] - 03/19/2025 4:45 PM CDT Vent Rate: 60 bpm RR Interval: 997 msec GA Interval: 219 msec QRS Duration: 145 msec QT Interval: 381 msec QTC Interval: 381 msec P-R-T [place]: 46 - -19 - 37 degrees IMPRESSION: SINUS RHYTHM WITH FIRST DEGREE AV BLOCK INTRAVENTRICULAR CONDUCTION DELAY ABNORMAL ECG Electronically Signed By: Casimiro Boggs [facility] Card Sagrario Fernandez NP ECG ORDERABLES Final R esult [facility] Qinti [facility] * US Arterial Doppler Lower Extremity Bilateral (03/08/2025 9:29 AM CDT) Anatomical Region Laterality Modality Vascular Bilateral Ultrasound 03/08/2025 9:06 AM CDT Narrative 03/08/2025 9:07 PM CDT [facility] - Department of Vascular Surgery, Vascular Laboratory [address] [place] [address] Lower Extremity Arterial Doppler Report Patient Name: RIVERA FREEMAN : 1950 Study Date: 03/08/2025 9:06:00 AM Gender: M Tech: Jay Hutson RVT Location: [facility] Provider: ANICETO FOLEY Quality: Adequate Order Provider: ANICETO FOLEY PROCEDURES: Arterial Report: Bilateral lower extremity arterial Doppler exam at rest. INDICATIONS: I70.213 Atherosclerosis of ambler arteries of extremities with intermittent claudication, bilateral legs. MEASUREMENTS: Right Value Units Left Value Units Rt Brachial Pressure 149 mmHg Lt Brachial Pressure 147 mmHg Rt OUTSIDE SALES ASSOCIATE Pressure 62 mmHg Lt OUTSIDE SALES ASSOCIATE Pressure 121 mmHg Rt DPA Pressure 50 mmHg Lt DPA Pressure 97 mmHg Rt 1st Digit Pressure 31 mmHg Lt 1st Digit Pressure 62 mmHg Rt PT TORREY Resting 0.42 Lt PT TORREY Resting 0.81 Rt AT TORREY Resting 0.34 Lt AT TORREY Resting 0.65 Rt Digit/Arm Index 0.21 Lt Digit/Arm Index 0.42 Right Value Units Left Value Units FINDINGS: Performing Oncology Rep Specialist: Jay Hutson RVT. Right Common Femoral Artery [...] Procedure Note Aniceto Foley MD - 03/08/2025 [employer] [facility] - Department of Vascular Surgery,Vascular Laboratory [address] [place] [address] Lower Extremity Arterial Doppler Report Patient Name: RIVERA FREEMAN : 1950 Study Date: 03/08/2025 9:06:00 AM Gender: M Tech: Jay Hutson RVT Location: [facility] Provider: ANICETO FOLEY Quality: Adequate Order Provider: ANICETO FOLEY PROCEDURES: Arterial Report: Bilateral lower extremity arterial Doppler exam at rest. INDICATIONS: I70.213 Atherosclerosis of ambler arteries of extremities withintermittent claudication, bilateral legs. MEASUREMENTS: Right Value Units Left Value Units Rt Brachial Pressure 149 mmHg Lt Brachial Pressure 147 mmHg Rt OUTSIDE SALES ASSOCIATE Pressure 62 mmHg Lt OUTSIDE SALES ASSOCIATE Pressure 121 mmHg Rt DPA Pressure 50 mmHg Lt DPA Pressure 97 mmHg Rt 1st Digit Pressure 31 mmHg Lt 1st Digit Pressure 62 mmHg Rt PT TORREY Resting 0.42 Lt PT TORREY Resting 0.81 Rt AT TORREY Resting 0.34 Lt AT TORREY Resting 0.65 Rt Digit/Arm Index 0.21 Lt Digit/Arm Index 0.42 Right Value Units Left Value Units FINDINGS: Performing Oncology Rep Specialist: Jay Hutson RVT. Right Common Femoral Artery [...] above. Electronically Signed By: Aniceto Foley MD [facility] 03/08/2025 8:21:05 PM CDT us Aniceto Foley MD [facility] US PROCEDURES Final Resul t * CTA [...] from Last [address]ART[address]Z [address] [place] [id number] [facility] MED[facility] MEDICARE [facility] MEDICARE [facility] MEDICARE [facility] Advance Directives For more information, please contact: [phone] * Full Code (Latest Code Status on File) Date Activated Date Inactivated Comments 04/24/2025 3:12 PM 04/26/2025 3:40 PM * Full Code Date Activated Date Inactivated Comments 11/09/2024 2:36 PM 11/12/2024 6:36 PM * Full Code Date Activated Date Inactivated Comments 10/30/2022 5:29 PM 10/31/2022 7:15 PM * Full Code Date Activated Date Inactivated Comments 08/16/2019 9:46 AM 08/16/2019 5:30 PM Care Teams Marine Diver Relationship Specialty Start Date End Date Fuentes Orellana MD PCP - General 11/28/16 Itz Iyer MD [address] [facility] [address] [place] [address] [id number] Consulting Physician Urology 05/31/18 Shawnee Mckinney MD 4960 [facility] [address] [place] [address] Referring Physician Urology 06/03/18 Chicho Clayton MD 4921 [facility] [address] [place] [address] Medical Oncologist/Hematologis t Medical Oncology 06/07/18 Maria Guadalupe Palacios, RN Registered Nurse 06/10/18 Lupillo Davenport MD Referring Physician Radiation Oncology 06/16/18 Danis Meza NP [address] [place] [address] Nurse Practitioner Urology 10/06/22 Antonette [place] NP [address] [facility] [address] [place] [address] Nurse Practitioner Cardiovascular Disease 10/06/22 Aniceto Foley MD [address] [place] [address] Surgeon Vascular Surgery 10/31/22
--- OUTSIDE RECORDS SUMMARY | 2025-05-04 12:27 | XMS_ITS | Encounter Summary ---
Author Organization [facility] Healthcare Address [address] [place] [address] Care Team Providers Care Foreign Exchange Trader Name Role Phone Fuentes Orellana MD Primary Care Provider + [phone] Itz Iyer MD Unavailable [phone] Lupillo Davenport MD Unavailable [phone] Lupillo Davenport MD Unavailable [phone] Shawnee Mckinney MD Unavailable [phone] Chicho Clayton MD Unavailable Newton Weeks MD Unavailable +[phone] Maria Guadalupe Palacios RN Unavailable Unava ilable Lupillo Davenport MD Unavailable [phone] Itz Iyer MD Unavailable [phone] Itz Iyer MD Unavailable +[phone] Itz Iyer MD Unavailable +[phone] Itz Iyer MD Unavailable +[phone] Itz Iyer MD Unavailable +[phone] Itz Iyer MD Unavailable [phone] Danis Meza NP Unavailable [phone] Antonette [place] NP Unavailable Aniceto Foley MD Unavailable [phone] Encounter Details Date Type Department Care Team (Late st Contact Info) Description 03/16/2018 Orders Only [facility] Information Management [address] [place] [address] Scanning, Provider Social History Tobacco Use Types Packs/Day Years Used Date Smoking Tobacco: Never Smokeless Tobacco: Never Alcohol Use Standard Drinks/Week Comments Yes 0 (1 standard drink = 0.6 oz pur e alcohol) Sex and Gender Information Value Date Recorded Sex Assigned at Not on file 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 Gender Identity Not on file Sexual [...] on filedocumented in this encounter Care Teams Foreign Exchange Trader Relationship Specialty Start Date End Date Fuentes Orellana MD PCP - General 11/28/16 Itz Iyer MD [address] [facility] [address] [place] [address] Consulting Physician Urology 05/31/18 Lupillo Davenport MD [address] [place] [address] Referring Physician Radiation Oncology 05/31/18 Lupillo Davenport MD [address] [place] [address] Referring Physician Radiation Oncology 05/31/18 Shawnee Mckinney MD [address] [facility] [address] [place] [address] Referring Physician Urology 06/03/18 Chicho Clayton MD [address] [facility] [address] [place] [address] Medical Oncologist/Hematologis t Medical Oncology 06/07/18 Newton Weeks MD [address] [facility] [address] [place] [address] Referring Physician Radiation Oncology 06/07/18 Maria Guadalupe Palacios RN Registered Nurse 06/10/18 Lupillo Davenport MD [address] [place] [address] [place] [address] Referring Physician Radiation Oncology 06/16/18 Itz Iyer MD [address] [address] Consulting Physician Urology 06/17/18 06/17/18 Itz Iyer MD [address] [place] [address] Consulting Physician Urology 06/18/18 06/18/18 Itz Iyer MD [address] [address] Consulting Physician Urology 06/18/18 06/18/18 Itz Iyer MD [address] [address] Consulting Physician Urology 06/22/18 06/22/18 Itz Iyer MD [address] [place] [address] Consulting Physician Urology 07/01/18 07/01/18 Itz Iyer MD [address] [place] [address] Consulting Physician Urology 07/06/18 07/06/18 Danis Meza NP [address] [facility] [address] [place] [address] Nurse Practitioner Urology 10/06/22 Antonette [place] NP [address] [place] [address] Nurse Practitioner Cardiovascular Disease 10/06/22 Aniceto Foley MD [address] [place] [address] Surgeon Vascular Surgery 10/31/22 documented as of this encounter
--- OUTSIDE RECORDS SUMMARY | 2025-05-04 12:27 | XMS_ITS | Encounter Summary ---
Author Organization [facility] Healthcare Address [address] [place] [address] Care Team Providers Care Lunchroom Monitor Name Role Phone Fuentes Orellana MD Primary Care Provider + [phone] Itz Iyer MD Unavailable +[phone] Lupillo Davenport MD Unavailable [phone] Lupillo Davenport MD Unavailable [phone] Shawnee Mckinney MD Unavailable [phone] Chicho Clayton MD Unavailable Newton Weeks MD Unavailable [phone] Maria Guadalupe Palacios RN Unavailable Unava ilable Lupillo Davenport MD Unavailable +[phone] Itz Iyer MD Unavailable [phone] Itz Iyer MD Unavailable +[phone] Itz Iyer MD Unavailable +[phone] Itz Iyer MD Unavailable +[phone] Itz Iyer MD Unavailable +[phone] Itz Iyer MD Unavailable [phone] Danis Meza NP Unavailable [phone] Antonette [place] NP Unavailable Aniceto Foley MD Unavailable Encounter Details Date Type Department Care Team (Late st Contact Info) Description 03/30/2018 Orders Only [facility] Health Information Management [address] [place] [address] Scanning, Provider Social History Tobacco Use Types Packs/Day Years Used Date Smoking Tobacco: Never Smokeless Tobacco: Never Alcohol Use Standard Drinks/Week Comments Yes 0 (1 standard drink = 0.6 oz pur e alcohol) Sex and Gender Information Value Date Recorded Sex Assigned at Not on file 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 Gender Identity Not on file Sexual [...] on filedocumented in this encounter Care Teams Lunchroom Monitor Relationship Specialty Start Date End Date Fuentes Orellana MD PCP - General 11/28/16 Itz Iyer MD [address] [facility] [address] [place] [address] Consulting Physician Urology 05/31/18 Lupillo Davenport MD [address] [place] [address] Referring Physician Radiation Oncology 05/31/18 Lupillo Davenport MD [address] [place] [address] Referring Physician Radiation Oncology 05/31/18 Shawnee Mckinney MD 4960 [facility] [address] [place] [address] Referring Physician Urology 06/03/18 Chicho Clayton MD 4921 [facility] [address] [place] [address] Medical Oncologist/Hematologis t Medical Oncology 06/07/18 Newton Weeks MD 49[address] [facility] [address] [place] [address] Referring Physician Radiation Oncology 06/07/18 Maria Guadalupe Palacios RN Registered Nurse 06/10/18 Lupillo Davenport MD [address] [place] [address] [place] [address] Referring Physician Radiation Oncology 06/16/18 Itz Iyer MD [address] [address] Consulting Physician Urology 06/17/18 06/17/18 Itz Iyer MD [address] [place] [address] Consulting Physician Urology 06/18/18 06/18/18 Itz Iyer MD [address] [address] Consulting Physician Urology 06/18/18 06/18/18 Itz Iyer MD [address] [address] Consulting Physician Urology 06/22/18 06/22/18 Itz Iyer MD [address] [place] [address] Consulting Physician Urology 07/01/18 07/01/18 Itz Iyer MD [address] [place] [address] Consulting Physician Urology 07/06/18 07/06/18 Danis Meza NP [address] [place] [address] Nurse Practitioner Urology 10/06/22 Antonette [place] NP [address] [place] [address] Nurse Practitioner Cardiovascular Disease 10/06/22 Aniceto Foley MD [address] [place] [address] Surgeon Vascular Surgery 10/31/22 documented as of this encounter
--- OUTSIDE RECORDS SUMMARY | 2025-05-04 12:27 | XMS_ITS | Encounter Summary ---
Author Organization [facility] Address [address] [place] [address] Phone Care Team Providers Care Rectifier Operator Name Role Phone Fuentes Orellana MD Primary Care Provider [phone] Brent Dickinson DO Unavailable [phone] Faviola Jiménez MUSIC COMPOSITION TEACHER, RIVER DRIVER Unavailable Shawnee Mckinney MD Unavailable Chicho Clayton MD Unavailable Lai Lambert MUSIC COMPOSITION TEACHER, RIVER DRIVER Unavailable [phone] Kami Meneses MD Unavailable [phone] Anette Bond MD Unavailable Kay Gordon MUSIC COMPOSITION TEACHER, RIVER DRIVER Unavailable Kami Meneses MD Unavailable [phone] Kami Meneses MD Unavailable [phone] Kami Meneses MD Unavailable [phone] Encounter Details Date Type Department Care Team (Late st Contact Info) Description 12/16/2024 Telephone [facility] [address] [place] [address] Kami Meneses MD #[address], [facility] [address] [place] [address] Social History Tobacco Use Types Packs/Day Years [...] 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 Chicho Clayton at [facility] for prostate. * Telephone Encounter - Kami Meneses MD - 12/16/2024 11:45 AM CDT Can you ask the patient who follows him for his prostate cancer? documented in this encounter Plan of Treatment Not on file documented as of this encounter Visit Diagnoses Not on filedocumented in this encounter Care Teams Rectifier Operator Relationship Specialty Start Date End Date Fuentes Orellana MD [address] [address] PCP - General Family Medicine 07/06/15 Brent Dickinson [place] [address] [address] Gastroenterology 06/27/16 Faviola Jiménez APRN, RIVER DRIVER [address] [address] Nurse Practitioner Advanced Practice Nurse 07/22/16 Shawnee Mckinney MD 4960 [facility] [address] [place] [address] Urologist Urology 06/07/19 Chicho Clayton MD 4921 [facility] [address] [place] [address] Oncology 06/13/19 Lai Lambert APRN, RIVER DRIVER [address] [place] [address] Nurse Practitioner Advanced Practice Nurse 02/10/23 Kami Meneses MD #[address] [address] Consulting Physician Urology 06/16/23 Anette Bond MD #2 [place] [address] Consulting Physician Gastroenterology 12/25/22 Kay Gordon APRN, RIVER DRIVER [address] [place] [address] Nurse Practitioner Advanced Practice Nurse 06/16/24 Kami Meneses MD #[address] [address] Consulting Physician Urology 08/19/24 Kami Meneses MD [address], [facility] [address] [place] [address] Consulting Physician Urology 01/06/25 Kami Meneses MD #[address] [facility] [address] [place] [address] Consulting Physician Urology 03/08/25 documented as of this encounter
--- OUTSIDE RECORDS SUMMARY | 2025-05-04 12:27 | XMS_ITS | Encounter Summary ---
Author Organization [facility] Address [address] [place] [address] Phone Care Team Providers Care Marine Scientist Name Role Phone Fuentes Orellana MD Primary Care Provider [phone] Itz Iyer MD Unavailable [phone] Lupillo Davenport MD Unavailable [phone] Lupillo Davenport MD Unavailable [phone] Shawnee Mckinney MD Unavailable [phone] Chicho Clayton MD Unavailable Newton Weeks MD Unavailable Maria Guadalupe Palacios RN Unavailable Unava ilable Lupillo Davenport MD Unavailable [phone] Itz Iyer MD Unavailable [phone] Itz Iyer MD Unavailable [phone] Itz Iyer MD Unavailable [phone] Itz Iyer MD Unavailable [phone] Itz Iyer MD Unavailable [phone] Itz Iyer MD Unavailable [phone] Danis Meza COVERSTITCH ELASTIC ATTACHER Unavailable Antonette Owens COVERSTITCH ELASTIC ATTACHER Unavailable Aniceto Foley MD Unavailable [phone] Encounter Details Date Type Department Care [...] on file 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 Gender Identity Not on file [...] on filedocumented in this encounter Care Teams Marine Scientist Relationship Specialty Start Date End Date Fuentes Orellana MD PCP - General 11/28/16 Itz Iyer MD [address] [facility] [address] [place] [address] Consulting Physician Urology 05/31/18 Lupillo Davenport MD [address] [place] [address] Referring Physician Radiation Oncology 05/31/18 Lupillo Davenport MD [address] [place] [address] Referring Physician Radiation Oncology 05/31/18 Shawnee Mckinney MD [address]60 [facility] [address] [place] [address] Referring Physician Urology 06/03/18 Chicho Clayton MD [address] [facility] [address] [place] [address] Medical Oncologist/Hematologis t Medical Oncology 06/07/18 Newton Weeks MD 4921 [facility] [address] [place] [address] Referring Physician Radiation Oncology 06/07/18 Maria Guadalupe Palacios, RN Registered Nurse 06/10/18 Lupillo Davenport MD [address] [place] [address] [place] [address] Referring Physician Radiation Oncology 06/16/18 Itz Iyer MD [address] [place] [address] Consulting Physician Urology 06/17/18 06/17/18 Itz Iyer MD [address] [address] Consulting Physician Urology 06/18/18 06/18/18 Itz Iyer MD [address] [address] Consulting Physician Urology 06/18/18 06/18/18 Itz Iyer MD [address] [place] [address] Consulting Physician Urology 06/22/18 06/22/18 Itz Iyer MD [address] [place] [address] Consulting Physician Urology 07/01/18 07/01/18 Itz Iyer MD [address] [place] [address] Consulting Physician Urology 07/06/18 07/06/18 Danis Meza NP [address] [place] [address] Nurse Practitioner Urology 10/06/22 Antonette Owens NP [address] [place] [address] Nurse Practitioner Cardiovascular Disease 10/06/22 Aniceto Foley MD [address] [place] [address] Surgeon Vascular Surgery 10/31/22 documented as of this encounter
--- OUTSIDE RECORDS SUMMARY | 2025-05-04 12:27 | XMS_ITS | Encounter Summary ---
Author Organization [facility] Healthcare Address [address] [place] [address] Care Team Providers Care Naval Inspector Name Role Phone Fuentes Orellana MD Primary Care Provider + [phone] Itz Iyer MD Unavailable [phone] Lupillo Davenport MD Unavailable [phone] Lupillo Davenport MD Unavailable [phone] Shawnee Mckinney MD Unavailable [phone] Chicho Clayton MD Unavailable Newton Weeks MD Unavailable [phone] Maria Guadalupe Palacios RN Unavailable Unava ilable Lupillo Davenport MD Unavailable [phone] Itz Iyer MD Unavailable [phone] Itz Iyer MD Unavailable +[phone] Itz Iyer MD Unavailable +[phone] Itz Iyer MD Unavailable +[phone] Itz Iyer MD Unavailable [phone] Itz Iyer MD Unavailable [phone] Danis Meza NP Unavailable [phone] Antonette Owens NP Unavailable Aniceto Foley MD Unavailable Encounter Details Date Type Department Care Team (Late st Contact Info) Description 04/12/2018 Orders Only [facility] Health Information Management [address] [place] [address] Scanning, Provider Social History Tobacco Use Types Packs/Day Years Used Date Smoking Tobacco: Never Smokeless Tobacco: Never Alcohol Use Standard Drinks/Week Comments Yes 0 (1 standard drink = 0.6 oz pur e alcohol) Sex and Gender Information Value Date Recorded Sex Assigned at Not on file 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 Gender Identity Not on file Sexual Orientation [...] on filedocumented in this encounter Care Teams Naval Inspector Relationship Specialty Start Date End Date Fuentes Orellana MD PCP - General 11/28/16 Itz Iyer MD [address] [facility] [address] [place] [address] Consulting Physician Urology 05/31/18 Lupillo Davenport MD [address] [place] [address] Referring Physician Radiation Oncology 05/31/18 Lupillo Davenport MD [address] [place] [address] Referring Physician Radiation Oncology 05/31/18 Shawnee Mckinney MD [address]60 [facility] [address] [place] [address] Referring Physician Urology 06/03/18 Chicho Clayton MD 49[address] [facility] [address] [place] [address] Medical Oncologist/Hematologis t Medical Oncology 06/07/18 Newton Weeks MD 49[address] [facility] [address] [place] [address] Referring Physician Radiation Oncology 06/07/18 Maria Guadalupe Palacios RN Registered Nurse 06/10/18 Lupillo Davenport MD [address] [place] [address] Referring Physician Radiation Oncology 06/16/18 Itz Iyer MD [address] [place] [address] Consulting Physician Urology 06/17/18 06/17/18 Itz Iyer MD [address] [place] [address] Consulting Physician Urology 06/18/18 06/18/18 Itz Iyer MD [address] [address] Consulting Physician Urology 06/18/18 06/18/18 Itz Iyer MD [address] [place] [address], [place] [address] Consulting Physician Urology 06/22/18 06/22/18 Itz Iyer MD [address] [place] [address] Consulting Physician Urology 07/01/18 07/01/18 Itz Iyer MD [address] [place] [address] Consulting Physician Urology 07/06/18 07/06/18 Danis Meza NP [address] [facility] [address] [place] [address] Nurse Practitioner Urology 10/06/22 Antonette Owens NP [address] [facility] [address] [place] [address] Nurse Practitioner Cardiovascular Disease 10/06/22 Aniceto Foley MD [address] [place] [address] Surgeon Vascular Surgery 10/31/22 documented as of this encounter
--- OUTSIDE RECORDS SUMMARY | 2025-05-04 12:27 | XMS_ITS | Encounter Summary ---
Author Organization [facility] Address [address] [place] [address] Phone Care Team Providers Care Instrument Adjuster Name Role Phone Fuentes Orellana MD Primary Care Provider [phone] Brent Dickinson DO Unavailable [phone] Faviola Jiménez BOTTLING LINE OPERATOR, DAIRY FARM OPERATOR Unavailable Shawnee Mckinney MD Unavailable Chicho Clayton MD Unavailable Lai Lambert BOTTLING LINE OPERATOR, DAIRY FARM OPERATOR Unavailable [phone] Kami Meneses MD Unavailable [phone] Anette Bond MD Unavailable [phone] Kay Gordon BOTTLING LINE OPERATOR, DAIRY FARM OPERATOR Unavailable Kami Meneses MD Unavailable [phone] Kami Meneses MD Unavailable [phone] Kami Meneses MD Unavailable [phone] Reason for Visit * Reason Comments Medication Refill Encounter Details Date Type Department Care Team (Late st Contact Info) Description 03/25/2021 Refill [facility] - Gastroenterology - [place] [address] [place] [address] Ingrid Mccloud Ashley, PAC [address] [place] [address] Medication Refill Social History Tobacco Use Types [...] 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 Not on file Not [...] documented as of this encounter Care Teams Instrument Adjuster Relationship Specialty Start Date End Date Fuentes Orellana MD [address] [address] PCP - General Family Medicine 07/06/15 Brent Dickinson DO [address] [address] Gastroenterology 06/27/16 Faviola Jiménez APRN, DAIRY FARM OPERATOR [address] [address] Nurse Practitioner Advanced Practice Nurse 07/22/16 Shawnee Mckinney MD [address] [facility] [address] [place] [address] Urologist Urology 06/07/19 Chicho Clayton MD [address] [facility] [address] [place] [address] Oncology 06/13/19 Lai Lambert APRN, DAIRY FARM OPERATOR [address] [place] [address] Nurse Practitioner Advanced Practice Nurse 02/10/23 Kami Meneses MD #[address] [address] Consulting Physician Urology 06/16/23 Anette Bond MD #[address] [place] [address] Consulting Physician Gastroenterology 12/25/22 Kay Gordon APRN, DAIRY FARM OPERATOR [address]2 [place] [address] Nurse Practitioner Advanced Practice Nurse 06/16/24 Kami Meneses MD [address], [facility] [address] [place] [address] Consulting Physician Urology 08/19/24 Kami Meneses MD [address] [facility] [address] [place] [address] Consulting Physician Urology 01/06/25 Kami Meneses MD #[address], [facility] [address] [place] [address] Consulting Physician Urology 03/08/25 documented as of this encounter
--- OUTSIDE RECORDS SUMMARY | 2025-05-04 12:27 | XMS_ITS | Encounter Summary ---
Author Organization [facility] Address [address] [place] [address] Phone Care Team Providers Care Director Mobile Name Role Phone Fuentes Orellana MD Primary Care Provider [phone] Brent Dickinson DO Unavailable [phone] Faviola Jiménez SAMPLE SHOE INSPECTOR AND REWORKER, BUSINESS ASST Unavailable Shawnee cMkinney MD Unavailable Chicho Clayton MD Unavailable Lai Lambert SAMPLE SHOE INSPECTOR AND REWORKER, BUSINESS ASST Unavailable [phone] Kami Meneses MD Unavailable [phone] Anette Bond MD Unavailable [phone] Kay Gordon SAMPLE SHOE INSPECTOR AND REWORKER, BUSINESS ASST Unavailable Kami Meneses MD Unavailable [phone] Kami Meneses MD Unavailable [phone] Kami Meneses MD Unavailable [phone] Reason for Visit * Reason Comments Medication Refill Encounter Details Date Type Department Care Team (Late st Contact Info) Description 11/12/2022 Refill [facility] - Gastroenterology - [place] [address] [place] [address] Ingrid Mccloud Ashley, PAC [address] [place] [address] Medication Refill Social History Tobacco Use Types [...] 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 on file Not [...] filedocumented in this encounter Care Teams Director Mobile Relationship Specialty Start Date End Date Fuentes Orellana MD [address] [place] [address] PCP - General Family Medicine 07/06/15 Brent Dickinson DO [address] [address] Gastroenterology 06/27/16 Faviola Jiménez APRN, BUSINESS ASST [address] [address] Nurse Practitioner Advanced Practice Nurse 07/22/16 Shawnee Mckniney MD [address] [facility] [address] [place] [address] Urologist Urology 06/07/19 Chicho Clayton MD [address] [facility] 7 [place] [address] Oncology 06/13/19 Lai Lambert APRN, BUSINESS ASST [address] [place] [address] Nurse Practitioner Advanced Practice Nurse 02/10/23 Kami Meneses MD #[address] [address] Consulting Physician Urology 06/16/23 Anette Bond MD #2 [place] [address] Consulting Physician Gastroenterology 12/25/22 Kay Gordon APRN, BUSINESS ASST [address]2 [place] [address] Nurse Practitioner Advanced Practice Nurse 06/16/24 Kami Meneses MD [address], [facility] [address] [place] [address] Consulting Physician Urology 08/19/24 Kami Meneses MD [address], [facility] [address] [place] [address] Consulting Physician Urology 01/06/25 Kami Meneses MD #[address], [facility] [address] [place] [address] Consulting Physician Urology 03/08/25 documented as of this encounter
--- OUTSIDE RECORDS SUMMARY | 2025-05-04 12:27 | XMS_ITS | Encounter Summary ---
Author Organization [facility] Address [address] [place] [address] Care Team Providers Care Talend Developer Name Role Phone Fuentes Orellana MD Primary Care Provider [phone] Itz Iyer MD Unavailable [phone] Shawnee Mckinney MD Unavailable [phone] Chicho Clayton MD Unavailable Maria Guadalupe Palacios RN Unavailable Unava ilable Lupillo Davenport MD Unavailable [phone] Danis eMza VOIP ENGINEER Unavailable [phone] Antonette Owens NP Unavailable Aniceto Foley MD Unavailable [phone] Encounter Details Date Type Department Care Team (Late st Contact Info) Description 07/11/2024 Orders Only [facility] Health Information Management [address] [place] [address] Scanning, Provider Social History Tobacco Use Types [...] on file 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 Gender Identity Not on file Sexual Orientation [...] on filedocumented in this encounter Care Teams Talend Developer Relationship Specialty Start Date End Date Fuentes Orellana MD PCP - General 11/28/16 Itz Iyer MD [address] [place] [address] Consulting Physician Urology 05/31/18 Shawnee Mckinney MD [address] [facility] [address] [place] [address] Referring Physician Urology 06/03/18 Chicho Clayton MD [address] [facility] [address] [place] [address] Medical Oncologist/Hematologis t Medical Oncology 06/07/18 Maria Guadalupe Palacios, RN Registered Nurse 06/10/18 Lupillo Davenport MD Referring Physician Radiation Oncology 06/16/18 Danis Meza NP [address] [facility] [address] [place] [address] Nurse Practitioner Urology 10/06/22 Antonette Owens NP [address] [facility] [address] [place] [address] Nurse Practitioner Cardiovascular Disease 10/06/22 Aniceto Foley MD [address] [place] [address] Surgeon Vascular Surgery 10/31/22 documented as of this encounter
--- OUTSIDE RECORDS SUMMARY | 2025-05-04 12:27 | XMS_ITS | Clinical Summary ---
Author Organization [facility] Address [address] [place] [address] Phone Care Team Providers Care Tax Revenue Officer Name Role Phone Fuentes Orellana MD Primary Care Provider [phone] Allergies No known active allergies Medications pantoprazole [...] 2025 06/15/2018 Medical Devices Implanted Type Area Industrial Ecologist Device Identifier Shelf Expiration Date Model / Serial / Lot Ams 800 Urinary Control System(Penile Implant) Description:MRI conditional for 3T or less -danisha 01/04/19 Insurance MEDICARE PART A AND B [facility] [id number] Care Teams Tax Revenue Officer Relationship Specialty Start Date End Date Fuentes Orellana MD [address] [place] [address] PCP - General Family Practice 01/04/19
--- OUTSIDE RECORDS SUMMARY | 2025-05-04 12:27 | XMS_ITS | Encounter Summary ---
Author Organization [facility] Healthcare Address [address] [place] [address] Care Team Providers Care Disk Sharpener Name Role Phone Fuentes Orellana MD Primary Care Provider [phone] Itz Iyer MD Unavailable [phone] Shawnee Mckinney MD Unavailable [phone] Chicho Clayton MD Unavailable Maria Guadalupe Palacios RN Unavailable Unava ilable Lupillo Davenport MD Unavailable [phone] Danis Meza SENIOR PLANNING MANAGER Unavailable [phone] Antonette Owens NP Unavailable Aniceto Foley MD Unavailable [phone] Encounter Details Date Type Department Care Team (Late st Contact Info) Description 07/24/2024 Orders Only [facility] Health Information Management [address] [place] [address] Scanning, Provider Social History Tobacco Use Types [...] on file 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 Gender Identity Not on file Sexual Orientation [...] on filedocumented in this encounter Care Teams Disk Sharpener Relationship Specialty Start Date End Date Fuentes Orellana MD PCP - General 11/28/16 Itz Iyer MD [address] [address] Consulting Physician Urology 05/31/18 Shawnee Mckinney MD [address] [facility] [address] [place] [address] Referring Physician Urology 06/03/18 Chicho Clayton MD [address] [facility] [address] [place] [address] Medical Oncologist/Hematologis t Medical Oncology 06/07/18 Maria Guadalupe Palacios RN Registered Nurse 06/10/18 Lupillo Davenport MD Referring Physician Radiation Oncology 06/16/18 Danis Meza NP [address] [facility] [address] [place] [address] Nurse Practitioner Urology 10/06/22 Antonette Owens NP [address] [facility] [address] [place] [address] Nurse Practitioner Cardiovascular Disease 10/06/22 Aniceto Foley MD [address] [place] [address] Surgeon Vascular Surgery 10/31/22 documented as of this encounter
--- OUTSIDE RECORDS SUMMARY | 2025-05-04 12:27 | XMS_ITS | Encounter Summary ---
Author Organization [facility] Address [address] [place] [address] Phone Care Team Providers Care Oil Seal Assembler Name Role Phone Fuentes Orellana MD Primary Care Provider Brent Dickinson DO Unavailable [phone] Faviola Jiménez COASTAL AND ESTUARY SPECIALIST, SCRIBING MACHINE OPERATOR Unavailable Shawnee Mckinney MD Unavailable Chicho Clayton MD Unavailable Lai Lambert COASTAL AND ESTUARY SPECIALIST, SCRIBING MACHINE OPERATOR Unavailable [phone] Kami Meneses MD Unavailable Anette Bond MD Unavailable [phone] Kay Gordon COASTAL AND ESTUARY SPECIALIST, SCRIBING MACHINE OPERATOR Unavailable Kami Meneses MD Unavailable [phone] Kami Meneses MD Unavailable [phone] Kami Meneses MD Unavailable [phone] Encounter Details Date Type Department Care Team (Late st Contact Info) Description 08/22/2024 Telephone [facility] UROLOGY [address] [place] [address] Kami Meneses MD #[address] [place] [address] Social History Tobacco Use Types Packs/Day Years [...] 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 H BALER * Telephone Encounter - Elidia Dill - 08/29/2024 8:20 AM CST Please see Dr. Otto message. H BALER * Telephone Encounter - Kami Meneses MD [...] sphincter. This needs to be done at [facility] by me. He will need a urine culture 14 days prior to surgery. Hibiclens shower the night before morning of surgery, vancomycin and gentamicin for antibiotics H BALER H BALER documented in this encounter Plan of Treatment Not on file documented as of this encounter Visit Diagnoses Not on filedocumented in this encounter Care Teams Oil Seal Assembler Relationship Specialty Start Date End Date Fuentes Orellana MD [address] [place] [address] PCP - General Family Medicine 07/06/15 Brent Dickinson DO [address] [place] [address] Gastroenterology 06/27/16 Faviola Jiménez APRN, SCRIBING MACHINE OPERATOR [address] [facility] [address] Nurse Practitioner Advanced Practice Nurse 07/22/16 Shawnee Mckinney MD [address] [facility] [address] [place] [address] Urologist Urology 06/07/19 Chicho Clayton MD [address] [facility] 7 [place] [address] Oncology 06/13/19 Lai Lambert APRN, SCRIBING MACHINE OPERATOR [address] [place] [address] Nurse Practitioner Advanced Practice Nurse 02/10/23 Kami Meneses MD [address] [address] Consulting Physician Urology 06/16/23 Anette Bond MD #[address] [place] [address] Consulting Physician Gastroenterology 12/25/22 Kay Gordon APRN, SCRIBING MACHINE OPERATOR #[address] [place] [address] Nurse Practitioner Advanced Practice Nurse 06/16/24 Kami Meneses MD [address] [address] Consulting Physician Urology 08/19/24 Kami Meneses MD [address] [place] [address] Consulting Physician Urology 01/06/25 Kami Meneses MD [address] [address] Consulting Physician Urology 03/08/25 documented as of this encounter
== END 2025-05-04 12:06 | disposition home or self-care (01) ==
PROVIDERS: PCP Family Medicine; Visit Provider Nurse Practitioner Family
DX: R10.9 Unspecified abdominal pain (principal); K44.9 Diaphragmatic hernia without obstruction or gangrene
CPT/HCPCS: 74176

== ENCOUNTER 2025-07-06 12:01 | Outpatient (CLI) | payer MEDICARE, SELFPAY ==
--- OUTSIDE RECORDS SUMMARY | 2005-08-04 02:15 | XMS_ITS | Continuity of Care Document ---
Author Organization [facility] Address [address] [place] [address] [place] [address] Phone Care Team Providers Care Combination Technician Name Role Phone To Torres MD Unavailable Unavailable Advance Directives Directive Yes / No Effective Date File Name No Information Encounters Encounter Description Practice Location Reason(s) For Visit Diagnoses Date Provider Providers Copied on Encounter [facility], [address], [place], [place], [id number], tel:[phone] [facility] No Information Dec-0 5-200 5 Melissa Ariza. [address] [facility] [address], [place], [place], [id number], [place]. tel:[phone] Family History Family Member Type Diagnosis Age At Onset No Information Payers Payer name Insurance type Covered constitution party ID Authoriza tion(s) Medicaid [facility] [id number] Social History Type Description Quantity Date Captured Comments Sex Male Smoking Status No Information Chief Complaint And Reason For Visit No Information Reason For Referral Reason For Referral No Information History Of Present Illness Encounter Date Complaint History Of Prese nt Illness No Information Functional Status Date Functional Assessmen t No Information Instructions Date Instruction Additional Infor mation No Information Assessments Type Assessment Date No Information Patient Care Teams Name Effective Dates (start - stop) Status Members No Information
--- NOTE | ~2025-07-06 | XR_ITS ---
EXAMINATION: XR chest 2V, 07/06/2025 12:15 HAM ROLLING MACHINE OPERATOR HISTORY: R05.3 - Chronic cough COMPARISON: No comparisons available. Technique: 2 views obtained. Findings: Mild pulmonary venous congestion. No pneumothorax. Mild cardiomegaly. Mediastinal and hilar contours are within normal limits. Bony thorax no acute abnormality. Impression: Mild CHF Reviewed, dictated and finalized at location P. ROLLING MACHINE OPERATOR Impression: Mild CHF
--- OUTSIDE RECORDS SUMMARY | 2025-07-06 19:26 | XMS_ITS ---
Author Organization [facility] [address] Address [address] [place] [address] Care Team Providers Care Brine Tank Operator Name Role Phone Fuentes Orellana MD Primary Care Provider Itz Iyer MD Unavailable [phone] Shawnee Mckinney MD Unavailable [phone] Chicho Clayton MD Unavailable Maria Guadalupe Palacios RN Unavailable Unava ilable Lupillo Davenport MD Unavailable [phone] Danis Meza CANARY BREEDER Unavailable Antonette Owens NP Unavailable Aniceto Foley MD Unavailable [phone] Active Problems Problem Noted Date Diagnosed [...] (10/21/2022): Added automatically from request for surgery [id number] Assessment & Plan (10/30/2022 2:56 PM ENTRY LEVEL WEB DEVELOPER): - OR 3/2 for planned R CEA - OU status, Q2h NV/VS monitoring - Bedrest today, OOB/PT POD #1 - SBP goal 100-160, nicardipine for elevated BP - Continue aspirin and statin - Plan to stager home medications and resume overnight Atherosclerosis of [place] ar teries of extremities with intermittent claudication, bilateral legs 06/03/2022 Melanoma 01/10/2021 Anxiety 01/10/2021 DM (diabetes mellitus) 01/10/2021 Assessment & Plan (04/25/2025 6:06 AM CDT): NIDDM, on finerenon, amaryl, tradjenta. - Hold home PO diabetic meds while inpatient. Restart at discharge. - Diabetic diet, SSI Assessment & Plan (10/30/2022 9:59 AM ENTRY LEVEL WEB DEVELOPER): - A1c 7.6% 10/2022 - SSI while inpatient - CC diet when eating Elevated left ventricular end-diastolic pressure (LVEDP) 11/15/2019 Encounter for surgical after care following surgery of circulatory system 05/20/2019 Prostate cancer 09/10/2018 Assessment & Plan (10/27/2018 9:53 AM ENTRY LEVEL WEB DEVELOPER): Follows with urology, has his PSA monitored it is increasing, but still WNL 1.4 Assessment & Plan (09/22/2018 11:35 AM ENTRY LEVEL WEB DEVELOPER): Has close follow up with his oncologist. His PSA was slightly elevated on last check. Hyperlipidemia 09/21/2017 Assessment & Plan (06/30/2018 9:38 AM CDT): His last lipid panel was within acceptable range; he will continue on a high intensity statin. Assessment & Plan (09/21/2017 11:34 AM ENTRY LEVEL WEB DEVELOPER): Continue Lipitor 40 mg daily. Essential hypertension 07/20/2017 Assessment & Plan (10/30/2022 2:57 PM ENTRY LEVEL WEB DEVELOPER): - Tight BP goals post-procedure - Continue home medications as indicated by BP goals as above, staggering overnight for gentle BP control Assessment & Plan (10/27/2018 9:54 AM ENTRY LEVEL WEB DEVELOPER): Hypertension is unchanged. Dietary sodium restriction. Blood pressure will be reassessed in 4 weeks. Assessment & Plan (09/22/2018 11:38 AM ENTRY LEVEL WEB DEVELOPER): Hypertension remains elevated. He is increasing his [...] today Assessment & Plan (09/21/2017 11:33 AM ENTRY LEVEL WEB DEVELOPER): Blood pressure is well controlled today. Last visit we added HCTZ 12.5 mg daily. Continue current medications Assessment & Plan (08/10/2017 11:26 AM ENTRY LEVEL WEB DEVELOPER): Blood pressure is not controlled. Add hydrochlorothiazide 12.5 mg p.o. daily. He is compliant with medications but always add salt to food which I advised him not to do that. Assessment & Plan (07/20/2017 9:19 AM ENTRY LEVEL WEB DEVELOPER): Blood pressure remains uncontrolled. We will order renal Doppler ultrasound to rule out renal artery stenosis given the fact that he has peripheral vascular disease and coronary artery disease. I will increase amlodipine from 5-10 mg p.o. daily. If that does not control the blood pressure we will add hydrochlorothiazide 12.5 mg p.o. Daily. Coronary artery disease invo lving [place] coronary artery of [place] heart without angina pectoris 07/20/2017 Assessment & Plan (10/30/2022 9:58 AM ENTRY LEVEL WEB DEVELOPER): - Continue home medications as able - Maintained on Brilinta as an outpatient; held 1 week prior to OR - Will discuss with surgery team when to safely resume post-procedure Assessment & Plan (10/27/2018 9:59 AM ENTRY LEVEL WEB DEVELOPER): Coronary artery disease is improving with lifestyle modifications. Continue current treatment regimen. Cardiac status will be reassessed in 3 months. No chest pain. Minimal SOB. Continue asa, statin, brilinta Assessment & Plan (09/22/2018 11:36 AM ENTRY LEVEL WEB DEVELOPER): Coronary artery disease is unchanged. Regular aerobic [...] BB. Assessment & Plan (09/21/2017 11:33 AM ENTRY LEVEL WEB DEVELOPER): Continue aspirin, Brilinta, Toprol XL and atorvastatin. Assessment & Plan (08/10/2017 11:27 AM ENTRY LEVEL WEB DEVELOPER): Continue Brilinta and aspirin. Asymptomatic. Assessment & Plan (07/20/2017 9:19 AM ENTRY LEVEL WEB DEVELOPER): Continue aspirin, Brilinta, Lipitor , metoprolol PVD [...] plan. Assessment & Plan (10/27/2018 9:21 AM ENTRY LEVEL WEB DEVELOPER): S/P bilateral ALVA angioplasty; right EIA angioplasty/stent 11/21/14. S/P aortoiliac angioplasty/stent 05/28/09. Continues on asa, statin and brilinta Assessment & Plan (09/21/2017 11:34 AM ENTRY LEVEL WEB DEVELOPER): He follows up with vascular surgery at [facility] Assessment & Plan (08/10/2017 11:27 AM ENTRY LEVEL WEB DEVELOPER): Renal ultrasound suggest more than 60% stenosis in the right renal artery and infrarenal stenosis 50-70%. He follows up with Dr. Foley from vascular surgery at [facility] Assessment & Plan (07/20/2017 9:20 AM ENTRY LEVEL WEB DEVELOPER): Patient will follow up with Dr. Foley [...] 02/09/2019 Assessment & Plan (10/27/2018 10:17 AM ENTRY LEVEL WEB DEVELOPER): Persistent dizziness. Has stopped caffeine intake. Has [...] implant or graft 6 02/09/2019 Atherosclerosis of [place] artery of extremity 04/15/20 16 02/09/2019 Assessment & Plan (09/22/2018 11:26 AM ENTRY LEVEL WEB DEVELOPER): 80% circumflex s/p RICHARD. 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 {plan; hypertension for POC:[id number]} Blood pressure will be reassessed {plan; follow-up 2 weeks/4weeks/3months:[id number]}. Increase amolodipine to 10 mg Continue all [...]
--- OUTSIDE RECORDS SUMMARY | 2025-07-06 19:27 | XMS_ITS | Clinical Summary ---
Author Organization [facility] [place] [address] Address [address] [place] [address] Care Team Providers Care Manager Adult Name Role Phone Fuentes Orellana MD Primary Care Provider Itz Iyer MD Unavailable Shawnee Mckinney MD Unavailable [phone] Chicho Clayton MD Unavailable Maria Guadalupe Palacios RN Unavailable Unava ilable Lupillo Davenport MD Unavailable [phone] Danis Meza EFFICIENCY EXPERT Unavailable Antonette Owens NP Unavailable Aniceto Foley MD Unavailable [phone] Allergies Active Allergy Reactions Criticality Noted [...] 06/13/20 19 Active allopurinoL (ZYLOPRIM) 300 mg tabletIndicati ons:prevention of acute gout attack Take 1 tablet (300 mg total) by mouth every morning 10/10/19 21 Active Kerendia 10 mg tabletIndicati ons:chronic kidney disease associated with type 2 diabetes Take 1 tablet by mouth every morning 05/11/20 24 Active aspirin 81 mg enteric coated tabletIndicati [...] 1 mg/0.2 mL auto-injector 12/08/19 25 Active rosuvastatin (CRESTOR) 40 mg tablet TAKE 1 TABLET(40 MG) BY MOUTH DAILY 30 tablet 3 03/21/20 25 Active gabapentin (NEURONTIN) 100 mg capsuleIndicat ions:Diabetic Peripheral [...] Active polyethylene glycol (MIRALAX) 17 gram/dose bulk powderIndicati ons:constipati on Take 17 g by mouth daily 578 g 04/26/20 25 Active Additional Information Patient not taking.Reported on 05/24/2025 amLODIPine (NORVASC) 5 mg tablet TAKE 1 TABLET(5 MG) BY MOUTH DAILY 90 tablet 3 04/28/20 25 Active nitroglycerin (NITROSTAT) 0.3 mg SL tabletIndicati ons:acute episode of anginal pain Place 1 tablet (0.3 mg total) under the tongue every 5 (five) minutes as needed for chest pain 25 tablet 3 05/12/20 25 026 Active telmisartan (MICARDIS) 80 mg tablet TAKE 1 TABLET(80 MG) BY MOUTH DAILY 90 tablet 3 06/05/20 25 Active metoprolol tartrate (LOPRESSOR) 25 mg immediate release tabletIndicati ons:Coronary artery disease involving yuhaaviatam coronary artery of yuhaaviatam heart without angina pectoris TAKE 1 TABLET(25 MG) BY MOUTH TWICE DAILY 90 tablet 3 06/09/20 25 Active metoprolol tartrate (LOPRESSOR) 25 mg immediate release tabletIndicati ons:Coronary artery disease involving yuhaaviatam coronary artery of yuhaaviatam heart without angina pectoris TAKE 1 TABLET(25 MG) BY MOUTH TWICE DAILY 90 tablet 3 02/28/20 25 025 Discontinued Active Problems Problem Noted Date [...] (10/21/2022): Added automatically from request for surgery [id number] Assessment & Plan (10/30/2022 2:56 PM KNEE BOLTER): - OR 3/2 for planned R CEA - OU status, Q2h NV/VS monitoring - Bedrest today, OOB/PT POD #1 - SBP goal 100-160, nicardipine for elevated BP - Continue aspirin and statin - Plan to stager home medications and resume overnight Atherosclerosis of yuhaaviatam ar teries of extremities with intermittent claudication, bilateral legs 06/03/2022 Melanoma 01/10/2021 Anxiety 01/10/2021 DM (diabetes mellitus) 01/10/2021 Assessment & Plan (04/25/2025 6:06 AM CDT): NIDDM, on finerenon, amaryl, tradjenta. - Hold home PO diabetic meds while inpatient. Restart at discharge. - Diabetic diet, SSI Assessment & Plan (10/30/2022 9:59 AM KNEE BOLTER): - A1c 7.6% 10/2022 - SSI while inpatient - CC diet when eating Elevated left ventricular end-diastolic pressure (LVEDP) 11/15/2019 Encounter for surgical after care following surgery of circulatory system 05/20/2019 Prostate cancer 09/10/2018 Assessment & Plan (10/27/2018 9:53 AM KNEE BOLTER): Follows with urology, has his PSA monitored it is increasing, but still WNL 1.4 Assessment & Plan (09/22/2018 11:35 AM KNEE BOLTER): Has close follow up with his oncologist. His PSA was slightly elevated on last check. Hyperlipidemia 09/21/2017 Assessment & Plan (06/30/2018 9:38 AM CDT): His last lipid panel was within acceptable range; he will continue on a high intensity statin. Assessment & Plan (09/21/2017 11:34 AM KNEE BOLTER): Continue Lipitor 40 mg daily. Essential hypertension 07/20/2017 Assessment & Plan (10/30/2022 2:57 PM KNEE BOLTER): - Tight BP goals post-procedure - Continue home medications as indicated by BP goals as above, staggering overnight for gentle BP control Assessment & Plan (10/27/2018 9:54 AM KNEE BOLTER): Hypertension is unchanged. Dietary sodium restriction. Blood pressure will be reassessed in 4 weeks. Assessment & Plan (09/22/2018 11:38 AM KNEE BOLTER): Hypertension remains elevated. He is increasing his [...] today Assessment & Plan (09/21/2017 11:33 AM KNEE BOLTER): Blood pressure is well controlled today. Last visit we added HCTZ 12.5 mg daily. Continue current medications Assessment & Plan (08/10/2017 11:26 AM KNEE BOLTER): Blood pressure is not controlled. Add hydrochlorothiazide 12.5 mg p.o. daily. He is compliant with medications but always add salt to food which I advised him not to do that. Assessment & Plan (07/20/2017 9:19 AM KNEE BOLTER): Blood pressure remains uncontrolled. We will order renal Doppler ultrasound to rule out renal artery stenosis given the fact that he has peripheral vascular disease and coronary artery disease. I will increase amlodipine from 5-10 mg p.o. daily. If that does not control the blood pressure we will add hydrochlorothiazide 12.5 mg p.o. Daily. Coronary artery disease invo lving yuhaaviatam coronary artery of yuhaaviatam heart without angina pectoris 07/20/2017 Assessment & Plan (10/30/2022 9:58 AM KNEE BOLTER): - Continue home medications as able - Maintained on Brilinta as an outpatient; held 1 week prior to OR - Will discuss with surgery team when to safely resume post-procedure Assessment & Plan (10/27/2018 9:59 AM KNEE BOLTER): Coronary artery disease is improving with lifestyle modifications. Continue current treatment regimen. Cardiac status will be reassessed in 3 months. No chest pain. Minimal SOB. Continue asa, statin, brilinta Assessment & Plan (09/22/2018 11:36 AM KNEE BOLTER): Coronary artery disease is unchanged. Regular aerobic [...] BB. Assessment & Plan (09/21/2017 11:33 AM KNEE BOLTER): Continue aspirin, Brilinta, Toprol XL and atorvastatin. Assessment & Plan (08/10/2017 11:27 AM KNEE BOLTER): Continue Brilinta and aspirin. Asymptomatic. Assessment & Plan (07/20/2017 9:19 AM KNEE BOLTER): Continue aspirin, Brilinta, Lipitor , metoprolol PVD [...] plan. Assessment & Plan (10/27/2018 9:21 AM KNEE BOLTER): S/P bilateral ALVA angioplasty; right EIA angioplasty/stent 11/21/14. S/P aortoiliac angioplasty/stent 05/28/09. Continues on asa, statin and brilinta Assessment & Plan (09/21/2017 11:34 AM KNEE BOLTER): He follows up with vascular surgery at [facility] Assessment & Plan (08/10/2017 11:27 AM KNEE BOLTER): Renal ultrasound suggest more than 60% stenosis in the right renal artery and infrarenal stenosis 50-70%. He follows up with Dr. Foley from vascular surgery at [facility] Assessment & Plan (07/20/2017 9:20 AM KNEE BOLTER): Patient will follow up with Dr. Foley [...] 02/09/2019 Assessment & Plan (10/27/2018 10:17 AM KNEE BOLTER): Persistent dizziness. Has stopped caffeine intake. Has [...] implant or graft 6 02/09/2019 Atherosclerosis of yuhaaviatam artery of extremity 04/15/20 16 02/09/2019 Assessment & Plan (09/22/2018 11:26 AM KNEE BOLTER): 80% circumflex s/p RIHCARD. Moderate 30 % LAD with bridging Impotence of organic origin 09/18/2015 02/09/2019 Urinary tract infection 01/18/201501/29 Incontinence 01/18/2015 02/09/2019 Stricture, urethra 07/31/2011 9 Overview (12/10/2017): Description: Dilation 06/09/11 Nocturia 11/28/2010 02/09/2019 Hypertension 05/16/2009 02/09/2019 Assessment & Plan (10/27/2018 10:11 AM KNEE BOLTER): Hypertension is {improving/stable/worsenin}. {plan; hypertension for POC:[id number]} Blood pressure will be reassessed {plan; follow-up 2 weeks/4weeks/3months:[id number]}. Increase amolodipine to 10 mg Continue all [...] Encounters Date Type Department Care Team Description 06/30/2025 10:46 AM CDT - 06/30/2025 11:59 PM CDT Hospital Encounter [facility] Medical Office Building [address] [address] Microscopic hematuria Discharge Disposition: Discharge to home or self care 06/23/2025 Community Orders [facility] EpicCare Link Kami Meneses MD Microscopic hematuria (Primary Dx); Pelvic pain 05/24/2025 11:45 AM CDT Office Visit [facility] [address] [place] [address] 8th [place] [address] [place] [address] Aniceto Foley MD Atherosclerosis of yuhaaviatam arteries of extremities with intermittent claudication, bilateral legs (Primary Dx) 05/24/2025 11:00 AM CDT Ancillary Procedure [facility] Lab at the [address] 8th [place] [address] [place] [address] Encounter for surgical aftercare following surgery on the circulatory system 05/24/2025 10:15 AM CDT Ancillary Procedure [facility] V[facility] Lab at the [facility] [address] [facility] 8th [place] [address] [place] [address] Atherosclerosis of yuhaaviatam arteries of extremities with intermittent claudication, right leg 05/18/2025 Orders Only [facility] [address] [facility] Medical Office Building 3 [address] [place] [address] Aniceto Foley MD Encounter for surgical aftercare following surgery on the circulatory system (Primary Dx) 05/12/2025 10:00 AM CDT Office Visit [facility] [address] [place] [phone] Kay Ward NP Coronary artery disease of yuhaaviatam artery of yuhaaviatam heart with stable angina pectoris; Essential hypertension; LVH (left ventricular hypertrophy); PVD (peripheral vascular disease) 05/09/2025 Telephone [facility] [address] [place] [phone] Kay Ward NP 04/24/2025 8:30 AM CDT - 04/24/2025 11:45 AM CDT Surgery [facility] Operating Room [address] [place] [address] Aniceto Foley MD ANGIOGRAM - HYBRID ROOM aorto iliac angiogram 04/24/2025 8:30 AM CDT Anesthesia Event [facility] Operating Room [address] [place] [address] Yuko Rodriguez MD Horton, Cheryl Renee Hill, NP 04/24/2025 6:23 AM CDT - 04/26/2025 11:35 AM CDT Hospital Encounter [address] [address] Aniceto Foley MD PAD (peripheral artery disease) Discharge Disposition: Discharge to home or self care 04/21/2025 Telephone [facility] [address] [facility] Medical Office Building 3 [address] [place] [address] Aniceto Foley MD 04/05/2025 Telephone [facility] [address] [place] [address] Kay Ward NP from Last [...] INTRAOCULAR LENS IMPLANT Right 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 CARDIAC CATHETERIZATION 04/24/2025 N/A Procedure: Percutaneous Lithotripsy Shockwave; Surgeon: Aniceto Foley MD; Location: [facility] OR POD 3; Service: Vascular; Laterality: N/A; Medical devices from this surgery are in the Medical Devices section. HERNIA REPAIR Medical History Medical History Date Comments History [...] drink = 0.6 oz pur e alcohol) [facility] Utilities Answer Date Recorded In the past 12 months has e [employer], gas, oil, or water [employer] threatened to shut off services in your [...] often do you attend chur ch or pentecostal services? More than 4 times per year 11/11/2024 Do you belong to any clubs o r organizations such as temple groups, unions, fraternal or athletic groups, or [...] any time in the past 12 [facility], were you homeless or living in a long term (including now)? No 11/11/2024 AUDIT-C Answer Date [...] on file Legal Sex Male 12:32 AM KNEE BOLTER Gender Identity Not on file Sexual Orientation Choose not to disclose 2018 8:58 AM CDT Occupation Industry Job 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 Date retired Not on file Not on file Not on file Last Filed Vital Signs Vital Sign Reading Time Taken Comments Blood Pressure 122/62 05/24/2025 10:39 AM CDT Pulse 66 05/24/2025 10:39 AM CDT Temperature 36.8 C (98.2 F) 04/26/2025 8:02 AM CDT Respiratory Rate 16 04/26/2025 8:02 AM CDT Oxygen Saturation 99% 05/24/2025 10:39 AM CDT Inhaled Oxygen Concentration - - Weight 79.4 kg (175 lb) 05/24/2025 10:39 AM CDT Height 167.6 cm (5' 6) 05/24/2025 10:39 AM CDT Body Mass Index 28.25 05/24/2025 10:39 AM CDT Plan of Treatment Health Maintenance Due Date Last Done Comments Albumin Creatinine Ratio, Urine 1950 Colon Cancer Screening-Colonoscopy 1950 Depression Screening 1950 Hepatitis C Screening 1950 Dilated Eye Exam 1949 Foot Exam 1949 Hepatitis B Screening 1967 Zoster Vaccine (1 of 2) 1999 Well Visit 65+ 2014 Covid-19 Vaccine (2024-2 6 season) 2025 11/25/2020, 11/01/2020 Influenza Vaccine [...] Abdominal Aortic Aneurysm (A AA) Screen Completed 06/30/2025, 03/08/2025, 12/15/2023, Additional history exists Medical Devices Implanted Type Area Water Softener Service Supervisor Device Identifier Shelf Expiration Date Model / Serial / Lot Other - See Comments-05/17/20 15 Implanted:2014 (Quantity not on file) Other - see comments Bladder Description:Bladder control Stent Stent Bilateral: Groin Description:Per pt 4-5 stent s Stent Stent N/A: Heart [employer] Sandra Express Ld Tandem Architecture 8mm 17mm 135cm Otw Premount [id number] - [id number] Implanted:Qty: 1 on 04/24/2025 by Aniceto Foley MD at [facility] Stent N/A: Infrarenal Aorta [employer] Sandra [id number] 10/12/2026 [id number] / / [id number] [employer] Stent Graft Endoprosthesis Reduced Profile Straight Heparin Coated Viabahn [id number] - [id number] - [id number] Implanted:Qty: 1 on 04/24/2025 by Aniceto Foley MD at [facility] Stent N/A: Infrarenal Aorta Wl [employer] [id number] 08/05/2027 [id number] / [id number] / [employer] Stent Graft Endoprosthesis Reduced Profile Straight Heparin Coated Viabahn [id number] - [id number] - [id number] Implanted:Qty: 1 on 04/24/2025 by Aniceto Foley MD at [facility] Stent Right: Iliac Wl [employer] [id number] 10/02/2027 [id number] / [id number] / Wl [employer] Stent Graft Endoprosthesis Reduced Profile Straight Heparin Coated Viabahn [id number] - [id number] - [id number] Implanted:Qty: 1 on 04/24/2025 by Aniceto Foley MD at [facility] Stent Left: Iliac Wl [employer] [id number] 07/31/2027 [id number] / [id number] / Wl [employer] Stent Graft Endoprosthesis Reduced Profile Straight Heparin Coated Viabahn [id number] - [id number] - [id number] Implanted:Qty: 1 on 04/24/2025 by Aniceto Foley MD at [facility] Stent Right: External Iliac Artery Wl [employer] [id number] 09/21/2027 [id number] / [id number] / Wl [employer] Stent Graft Endoprosthesis Reduced Profile Straight Heparin Coated Viabahn [id number] - [id number] - [id number] Implanted:Qty: 1 on 04/24/2025 by Aniceto Foley MD at [facility] Stent Right: Iliac Wl [employer] [id number] 11/07/2027 [id number] / [id number] / [employer] Device Vascular Closure Femoral Artery Bioabsorbable Dual Method Vascade 6-7fr Collagen [id number] - [id number] Implanted:Qty: 1 on 04/24/2025 by Arturo Hopkins MD at [facility] Vascular Closure Device Right: Groin [employer] [id number] 01/16/2027 [id number]- [id number] / / [id number] [employer] Device Vascular Closure Femoral Artery Bioabsorbable Dual Method Vascade 6-7fr Collagen [id number] - [id number] Implanted:Qty: 1 on 04/24/2025 by Arturo Hopkins MD at [facility] Vascular Closure Device Left: Groin [employer] [id number] 01/16/2027 [id number]- 05U / / Stent Right: Eye Artificail Urinary Sphincter-05/08/20 15 Implanted:2014 by Shawnee Mckinney MD (Quantity not on file) N/A: Urethra Description:05/08/2019 Placeme nt of artificial urinary sphincter with a 3.5 cm cuff and 61 to 70 cm pressure-regulating balloon. [place] [employer] Vascu-Guard 8x.8cm Peripheral Patch Vascular Bovine Pericardium Vg-[id number] - [id number] Implanted:Qty: 1 on 10/30/2022 by Aniceto Foley MD at [facility] Right: Carotid [facility] Sandra [id number] 07/09/2023 [id number] / / [id number] [employer] Sandra Ams 800 Kit Accessory Sterile Disposable Latex Free Urinary [id number] - [id number] Implanted:Qty: 1 on 11/09/2024 by Kami Meneses MD at [facility] N/A: Urethra [employer] Sandra [id number] 03/09/2029 [id number] / / [id number] [employer] Sandra Cuff Urethral Ams 800 Inhibizone 3.5cm [id number] - [id number] Implanted:Qty: 1 on 11/09/2024 by Kami Meneses MD at [facility] N/A: Urethra [employer] Sandra [id number] 02/22/2026 [id number] / / [id number] [employer] Sandra Ams 800 Pressure Balloon Sphincter 61-70cu Cm Implant Urological [id number] - [id number] Implanted:Qty: 1 on 11/09/2024 by Kami Meneses MD at [facility] N/A: Abdomen [employer] Sandra [id number] 03/20/2029 [id number] / / [id number] Cloud 66 Sandra Ams 800 Control Pump Sphincter Implant Urological Inhibizone [id number] - [id number] Implanted:Qty: 1 on 11/09/2024 by Kami Meneses MD at [facility] N/A: Scrotum Cloud 66 Sandra [id number] 02/15/2026 [id number] / / [id number] Procedures Procedure Name Priority Date/Time Associated Diagnosis Comments CT ABDOMEN PELVIS W WO CONTRAST Schedule Routine, Read Routine (OP Routine) 06/30/2025 11:08 AM CDT Microscopic hematuria POCT CREATININE FOR CONTRAST EVALUATION Routine 06/30/2025 11:00 AM CDT US DUPLEX SCAN OF AORTA: INFERIOR VENA CAVA, ILIAC, LIMITED OR UNILATERAL Schedule Routine, Read Routine (OP Routine) 05/24/2025 10:38 AM CDT Encounter for surgical aftercare following surgery on the circulatory system US ARTERIAL DUPLEX LOWER EXTREMITY RIGHT LIMITED Schedule Routine, Read Routine (OP Routine) 05/24/2025 10:37 AM CDT Atherosclerosis of yuhaaviatam arteries of extremities with intermittent claudication, right leg US ARTERIAL DOPPLER LOWER EXTREMITY BILATERAL Schedule Routine, Read Routine (OP Routine) 05/24/2025 10:37 AM CDT Atherosclerosis of yuhaaviatam arteries of extremities with intermittent claudication, right leg ECG 12-LEAD Routine 05/12/2025 12:03 PM CDT LVH (left ventricular hypertrophy) POCT GLUCOSE DEVICE Routine 04/26/2025 8 :01 [...] disease) PERCUTANEOUS CORONARY LITHROTRIPSY W/ PCI (+) 02617 Routine 04/24/2025 11:50 AM CDT PAD (peripheral [...] CHEMISTRIES, ARTERIAL Routine 04/24/2025 9:41 AM CDT ND AN PROCEDURE PLACEHOLDER Routine 04/24/2025 9:20 AM CDT ND AN PROCEDURE PLACEHOLDER Routine 04/24/2025 9:19 AM CDT ND AN PROCEDURE PLACEHOLDER Routine 04/24/2025 9:18 AM CDT ND AN PROCEDURE PLACEHOLDER Routine 04/24/2025 8:50 AM CDT ND AN ELECTIVE ENDOTRACHEAL AIRWAY Routine 04/24/2025 8:50 AM CDT POCT GLUCOSE DEVICE Routine 04/24/2025 7 :26 AM CDT TYPE AND SCREEN STAT 04/24/2025 7:18 AM CDT PREPARE RBC Timed 04/24/2025 6:46 AM CDT HEMOGLOBIN A1C Routine 03/17/2025 1:05 PM CDT Preoperative testing from Last 3 Months or Most Recently Relevant to Health Maintenance Results * CT ABDOMEN PELVIS W WO CONTRAST (06/30/2025 11:08 AM CDT) Anatomical Region Laterality Modality Body N/A Computed Tomogra phy 06/30/2025 2:33 PM CDT Impressions 06/30/2025 2:33 PM CDT No findings identified to suggest etiology the patient's hematuria. No nephrolithiasis or urolithiasis. No hydronephrosis or hydroureter. No enhancing renal mass. No collecting system filling defect. Extensive calcific atherosclerosis. Severe stenosis of the infrarenal abdominal aorta. Bilateral common iliac artery stent in place. Electronically signed by: Alfonso Martinez M.D. Narrative 06/30/2025 2:33 PM CDT EXAMINATION: CT ABDOMEN PELVIS W WO CONTRAST HISTORY: microscopic hematuria. TECHNIQUE: Precontrast images of the abdomen. Abdomen and pelvis images with intravenous and without oral contrast using helical scanning technique with dynamic intravenous contrast injection. Corticomedullary, nephrographic, excretory phase images were acquired. Reconstructed coronal and sagittal MPR images reviewed. All images stored on PACS. Automated exposure control was used as a dose optimization technique for this examination. COMPARISON: None FINDINGS: URINARY TRACT: KIDNEYS: No identified significant cystic or solid masses. No calculi. Normal renal collecting systems. URETERS AND BLADDER: No hydroureter. No masses or mucosal abnormalities. LOWER CHEST: The lung bases are clear. The heart is normal in size without pericardial effusion. LIVER: Normal in size. No identified cystic or solid masses. GALLBLADDER:No radiopaque gallstones are seen. BILIARY: No intrahepatic or extrahepatic ductal dilatation. SPLEEN: Normal length. No focal lesions. PANCREAS: No identified cystic or solid masses. No significant calcifications. No adjacent inflammation or peripancreatic fluid collections. Pancreatic duct is not dilated. ADRENALS: No discrete nodules. GI: No dilated bowel loops. No obvious wall thickening extensive uncomplicated diverticular disease. PERITONEUM: No free intraperitoneal air or ascites. RETROPERITONEUM:No mass or adenopathy REPRODUCTIVE:No significant abnormality VASCULATURE: Extensive calcific atherosclerosis. Severe stenosis of the infrarenal abdominal aorta. Bilateral common iliac artery stent in place. MUSCULOSKELETAL: No acute findings. OTHER: Penile pump in place Procedure Note Alfonso Martinez MD - 06/30/2025 EXAMINATION: CT ABDOMEN PELVIS W WO CONTRAST HISTORY: microscopic hematuria. TECHNIQUE: Precontrast images of the abdomen. Abdomen and pelvis images with intravenous and without oral contrast using helical scanning technique with dynamic intravenous contrast injection. Corticomedullary, nephrographic, excretory phase images were acquired. Reconstructed coronal and sagittal MPR images reviewed. All images stored on PACS. Automated exposure control was used as a dose optimization technique for this examination. COMPARISON: None FINDINGS: URINARY TRACT: KIDNEYS: No identified significant cystic or solid masses. No calculi. Normal renal collecting systems. URETERS AND BLADDER: No hydroureter. No masses or mucosal abnormalities. LOWER CHEST: The lung bases are clear. The heart is normal in size without pericardial effusion. LIVER: Normal in size. No identified cystic or solid masses. GALLBLADDER:No radiopaque gallstones are seen. BILIARY: No intrahepatic or extrahepatic ductal dilatation. SPLEEN: Normal length. No focal lesions. PANCREAS: No identified cystic or solid masses. No significant calcifications. No adjacent inflammation or peripancreatic fluid collections. Pancreatic duct is not dilated. ADRENALS: No discrete nodules. GI: No dilated bowel loops. No obvious wall thickening extensive uncomplicated diverticular disease. PERITONEUM: No free intraperitoneal air or ascites. RETROPERITONEUM:No mass or adenopathy REPRODUCTIVE:No significant abnormality VASCULATURE: Extensive calcific atherosclerosis. Severe stenosis of the infrarenal abdominal aorta. Bilateral common iliac artery stent in place. MUSCULOSKELETAL: No acute findings. OTHER: Penile pump in place IMPRESSION: No findings identified to suggest etiology the patient's hematuria. No nephrolithiasis or urolithiasis. No hydronephrosis or hydroureter. No enhancing renal mass. No collecting system filling defect. Extensive calcific atherosclerosis. Severe stenosis of the infrarenal abdominal aorta. Bilateral common iliac artery stent in place. Electronically signed by: Alfonso Martinez M.D. [facility] Thomas Meneses MD IMG CT PROCEDURES Final Result * (ABNORMAL) POCT creatinine for contrast evaluation (06/30/2025 11:00 AM CDT) Creatinine POC 1.70(H) 0.80 - 1.30 mg/dL Comment:Testing performed by : [facility], [address] [place] [address], [place]., [address] Blood 06/30/2025 11:0 0 AM CDT 06/30/2025 11:00 AM CDT us Kami Gleason MD POINT OF CARE TEST ORDERABLES Final Result DARIN [address] [facility] [place] [address] * US Duplex Scan of Aorta; Inferior Vena Cava, Iliac, Limited or Unilateral (05/24/2025 10:38 AM CDT) Anatomical Region Laterality Modality Vascular Ultrasound 05/24/2025 10:0 6 AM CDT Narrative 05/24/2025 11:40 AM CDT [facility] - Department of Vascular Surgery, Vascular Laboratory [address] [place] [address] Abdominal Aortic Duplex Ultrasound Report Patient Name: RIVERA FREEMAN : 1950 Study Date: 05/24/2025 10:06:21 AM Sex: M Tech: TT Location: [facility] Provider: ANICETO FOLEY Quality: Adequate Order Provider: ANICETO FOLEY PROCEDURES: Arterial Report: Duplex ultrasound imaging of the abdominal aorta. INDICATIONS: Z48.812 Encounter for surgical aftercare following surgery on the circulatory system. MEASUREMENTS: Aorta Value Units Arteries Value Units Prox (Celiac Level) A/P 1.09 cm RT AMARILYS STENT prox 163.00 cm/s Prox (Celiac Level) Trans 1.16 cm RT AMARILYS STENT mid 122.00 cm/s RT AMARILYS STENT dist 175.00 cm/s RT EIA STENT prox 194.00 cm/s RT EIA STENT mid 179.00 cm/s RT EIA STENT dist 182.00 cm/s LT AMARILYS STENT prox 111.00 cm/s LT AMARILYS STENT mid 87.00 cm/s LT AMARILYS STENT dist 183.00 cm/s LT EIA STENT prox 181.00 cm/s LT EIA STENT mid 166.00 cm/s LT EIA STENT dist 155.00 cm/s Aorta Value Units Arteries Value Units FINDINGS: Performing Television Installer Helper: Jay Hutson RVT. Study Quality: Limited. Abdominal Aorta: Patent bilateral internal and external iliac arteries. Limited study due to bowel gas, unable to visualize mid and distal aorta. CONCLUSIONS: 1. Findings suggest continued patency of the previously placed stent. HISTORY: H/O intervention 04-24-25. PREVIOUS STUDIES: No previous studies for comparison. DISCLAIMER: The study images and the final [...] that is provided above. Electronically Signed By: Thomas Gupta MD FACS 05/24/2025 11:09:44 AM CDT Procedure Note Thomas Gupta MD - 05/24/2025 [facility] - Department of Vascular Surgery,Vascular Laboratory [address] [place] [address] Abdominal Aortic Duplex Ultrasound Report Patient Name: RIVERA FREEMAN : 1950 Study Date: 05/24/2025 10:06:21 AM Sex: M Tech: TT Location: [facility] Ref Provider: ANICETO FOLEY Quality: Adequate Order Provider: ANICETO FOLEY PROCEDURES: Arterial Report: Duplex ultrasound imaging of the abdominal aorta. INDICATIONS: Z48.812 Encounter for surgical aftercare following surgery on thecirculatory system. MEASUREMENTS: Aorta Value Units Arteries Value Units Prox (Celiac Level) A/P 1.09 cm RT AMARILYS STENT prox 163.00 cm/s Prox (Celiac Level) Trans 1.16 cm RT AMARILYS STENT mid 122.00 cm/s RT AMARILYS STENT dist 175.00 cm/s RT EIA STENT prox 194.00 cm/s RT EIA STENT mid 179.00 cm/s RT EIA STENT dist 182.00 cm/s LT AMARILYS STENT prox 111.00 cm/s LT AMARILYS STENT mid 87.00 cm/s LT AMARILYS STENT dist 183.00 cm/s LT EIA STENT prox 181.00 cm/s LT EIA STENT mid 166.00 cm/s LT EIA STENT dist 155.00 cm/s Aorta Value Units Arteries Value Units FINDINGS: Performing Television Installer Helper: Jay Hutson RVT. Study Quality: Limited. Abdominal Aorta: Patent bilateral internal and external iliac arteries. Limited study due to bowel gas, unable to visualize mid and distalaorta. CONCLUSIONS: 1. Findings suggest continued patency of the previously placed stent. HISTORY: H/O intervention 04-24-25. PREVIOUS STUDIES: No previous studies for comparison. DISCLAIMER: The study images and the final report will be retained in the patientchart by the Vascular Laboratory for the legally required time period. This chartconstitutes the legal record of any testing performed. ATTESTATION: I have reviewed and interpreted the pertinent images and measurements ofthis study. I attest to the conclusions in the final report that is provided above. Electronically Signed By: Thomas Gupta MD [facility] 05/24/2025 11:09:44 AM CDT us Aniceto Foley MD IMG US PROCEDURES Final Resul t * US Arterial Duplex Lower Extremity Right Limited (05/24/2025 10:37 AM CDT) Anatomical Region Laterality Modality Vascular Right Ultrasound 05/24/2025 9:42 AM CDT Narrative 05/24/2025 11:40 AM CDT [facility] - Department of Vascular Surgery, Vascular Laboratory [address] [place] [address] Ute Lower Extremity Arterial Duplex Report Patient Name: RIVERA FREEMAN : 1950 Study Date: 05/24/2025 9:42:26 AM Sex: M Tech: TT Location: [facility] Provider: ANICETO FOLEY Quality: Adequate Order Provider: ANICETO FOLEY PROCEDURES: Arterial Report: Right Lower Extremity Arterial Duplex Exam. INDICATIONS: I70.211 Atherosclerosis of yuhaaviatam arteries of extremities with intermittent claudication, right leg. MEASUREMENTS: Right Value Units Rt ECOLOGIST Dst PSV 180 cm/s Rt Profunda Prx PSV 184 cm/s Rt Superficial Femoral Prx PSV 189 cm/s Rt Superficial Femoral Mid PSV 79 cm/s Rt Superficial Femoral Dst PSV 94 cm/s Rt Pop Prx PSV 60 cm/s Rt Post Tibial Mid PSV 34 cm/s Rt Ant Tibial Mid PSV 55 cm/s Rt Peroneal Mid PSV 56 cm/s Right Value Units FINDINGS: Performing Television Installer Helper: Jay Hutson RVT. Right Common Femoral: The right common femoral waveform is multiphasic. Right Profunda: The right profunda waveform is multiphasic. Right Proximal Superficial Femoral Artery: The right proximal femoral artery waveform is multiphasic. Right Mid Superficial Femoral Artery: The right mid femoral artery waveform is multiphasic. Right Distal Superficial Femoral Artery: The right distal femoral artery waveform is multiphasic. Right Popliteal: The right popliteal waveform is multiphasic. Right Posterior Tibial: The right posterior tibial waveform is multiphasic. Right Anterior Tibial: The right anterior tibial waveform is multiphasic. Right Peroneal: The right peroneal artery waveform is multiphasic. CONCLUSIONS: 1. Duplex imaging of the right lower extremity yuhaaviatam arteries reveals patent vessels with no flow limiting lesions identified. Flow velocities as measured above. See Ankle Brachial Index report. HISTORY: History of prior intervention 04-24-25. PREVIOUS STUDIES: No previous studies for comparison. DISCLAIMER: The study images and the final [...] that is provided above. Electronically Signed By: Thomas Gupta MD FACS 05/24/2025 11:08:37 AM CDT Procedure Note Thomas Gupta MD - 05/24/2025 [facility] - Department of Vascular Surgery,Vascular Laboratory [address] [place] [address] Ute Lower Extremity Arterial Duplex Report Patient Name: RIVEAR FREEMAN : 1950 Study Date: 05/24/2025 9:42:26 AM Sex: M Tech: TT Location: [facility] Provider: ANICETO FOLEY Quality: Adequate Order Provider: ANICETO FOLEY PROCEDURES: Arterial Report: Right Lower Extremity Arterial Duplex Exam. INDICATIONS: I70.211 Atherosclerosis of yuhaaviatam arteries of extremities withintermittent claudication, right leg. MEASUREMENTS: Right Value Units Rt ECOLOGIST Dst PSV 180 cm/s Rt Profunda Prx PSV 184 cm/s Rt Superficial Femoral Prx PSV 189 cm/s Rt Superficial Femoral Mid PSV 79 cm/s Rt Superficial Femoral Dst PSV 94 cm/s Rt Pop Prx PSV 60 cm/s Rt Post Tibial Mid PSV 34 cm/s Rt Ant Tibial Mid PSV 55 cm/s Rt Peroneal Mid PSV 56 cm/s Right Value Units FINDINGS: Performing Television Installer Helper: Jay Hutson RVT. Right Common Femoral: The right common femoral waveform is multiphasic. Right Profunda: The right profunda waveform is multiphasic. Right Proximal Superficial Femoral Artery: The right proximal femoral artery waveform is multiphasic. Right Mid Superficial Femoral Artery: The right mid femoral artery waveform is multiphasic. Right Distal Superficial Femoral Artery: The right distal femoral artery waveform is multiphasic. Right Popliteal: The right popliteal waveform is multiphasic. Right Posterior Tibial: The right posterior tibial waveform is multiphasic. Right Anterior Tibial: The right anterior tibial waveform is multiphasic. Right Peroneal: The right peroneal artery waveform is multiphasic. CONCLUSIONS: 1. Duplex imaging of the right lower extremity yuhaaviatam arteries revealspatent vessels with no flow limiting lesions identified. Flow velocities as measuredabove. See Ankle Brachial Index report. HISTORY: History of prior intervention 04-24-25. PREVIOUS STUDIES: No previous studies for comparison. DISCLAIMER: The study images and the final report will be retained in the patientchart by the Vascular Laboratory for the legally required time period. This chartconstitutes the legal record of any testing performed. ATTESTATION: I have reviewed and interpreted the pertinent images and measurements ofthis study. I attest to the conclusions in the final report that is provided above. Electronically Signed By: Thomas Gutpa MD [facility] 05/24/2025 11:08:37 AM CDT us Aniceto Foley MD IMG US PROCEDURES Final Resul t * US Arterial Doppler Lower Extremity Bilateral (05/24/2025 10:37 AM CDT) Anatomical Region Laterality Modality Vascular Bilateral Ultrasound 05/24/2025 9:45 AM CDT Narrative 05/24/2025 11:40 AM CDT [facility] - Department of Vascular Surgery, Vascular Laboratory [address] [place] [address] Lower Extremity Arterial Doppler Report Patient Name: RIVERA FREEMAN : 1950 Study Date: 05/24/2025 9:45:00 AM Sex: M Tech: Jay Hutson Rogers Location: [facility] Ref Provider: ANICETO FOLEY Quality: Adequate Order Provider: ANICETO FOLEY PROCEDURES: Arterial Report: Bilateral lower extremity arterial Doppler exam at rest. INDICATIONS: I70.211 Atherosclerosis of yuhaaviatam arteries of extremities with intermittent claudication, right leg. MEASUREMENTS: Right Value Units Left Value Units Rt Brachial Pressure 150 mmHg Lt Brachial Pressure 151 mmHg Rt E LEARNING MANAGER Pressure 141 mmHg Lt E LEARNING MANAGER Pressure 141 mmHg Rt DPA Pressure 139 mmHg Lt DPA Pressure 114 mmHg Rt 1st Digit Pressure 91 mmHg Lt 1st Digit Pressure 105 mmHg Rt PT TORREY Resting 0.93 Lt PT TORREY Resting 0.93 Rt AT TORREY Resting 0.92 Lt AT TORREY Resting 0.75 Rt Digit/Arm Index 0.6 Lt Digit/Arm Index 0.7 Right Value Units Left Value Units FINDINGS: Performing Television Installer Helper: Jay Hutson RVT. Right All Levels: The right common femoral, popliteal, posterior tibial and anterior tibial artery waveforms are multiphasic. Right Digits: Normal right digit pressure and waveform. Left Common Femoral Artery Analysis: The common femoral artery waveform is multiphasic. Left Popliteal Artery Analysis: The popliteal waveform is multiphasic. Left Posterior Tibial Artery Analysis: The posterior tibial waveform is multiphasic. Left Anterior Tibial Artery Analysis: The anterior tibial waveform is monophasic. Left Digits: Normal left digit pressure and waveform. CONCLUSIONS: 1. The above listed Ankle/Brachial Indices at rest are within normal limits bilaterally (for reference, normal resting TORREY is 0.9 to 1.4; TORREY >1.4 due to non- compressible arteries is not diagnostic). 2. Bilateral Digit/Arm Indices are within normal limits (for reference, normal EFRAIN is >0.6). 3. There is evidence of left leg arterial insufficiency at the level of anterior tibial artery. HISTORY: History of prior intervention on 04-24-25. PREVIOUS STUDIES: Previous study on 03-08-25 prior to intervention. Rt. 0.42, Lt. 0.81. DISCLAIMER: The study images and the final [...] that is provided above. Electronically Signed By: Thomas Gupta MD FACS 05/24/2025 11:11:06 AM CDT Procedure Note Thomas Gupta MD - 05/24/2025 [facility] - Department of Vascular Surgery,Vascular Laboratory [address] [place] [id number] Lower Extremity Arterial Doppler Report Patient Name: RIVERA FREEMAN : 1950 Study Date: 05/24/2025 9:45:00 AM Sex: M Tech: Jay Hutson Rogers Location: [facility] Provider: ANICETO FOLEY Quality: Adequate Order Provider: ANICETO FOLEY PROCEDURES: Arterial Report: Bilateral lower extremity arterial Doppler exam at rest. INDICATIONS: I70.211 Atherosclerosis of yuhaaviatam arteries of extremities withintermittent claudication, right leg. MEASUREMENTS: Right Value Units Left Value Units Rt Brachial Pressure 150 mmHg Lt Brachial Pressure 151 mmHg Rt E LEARNING MANAGER Pressure 141 mmHg Lt E LEARNING MANAGER Pressure 141 mmHg Rt DPA Pressure 139 mmHg Lt DPA Pressure 114 mmHg Rt 1st Digit Pressure 91 mmHg Lt 1st Digit Pressure 105 mmHg Rt PT TORREY Resting 0.93 Lt PT TORREY Resting 0.93 Rt AT TORREY Resting 0.92 Lt AT TORREY Resting 0.75 Rt Digit/Arm Index 0.6 Lt Digit/Arm Index 0.7 Right Value Units Left Value Units FINDINGS: Performing Television Installer Helper: Jay Hutson RVT. Right All Levels: The right common femoral, popliteal, posterior tibial and anterior tibialartery waveforms are multiphasic. Right Digits: Normal right digit pressure and waveform. Left Common Femoral Artery Analysis: The common femoral artery waveform is multiphasic. Left Popliteal Artery Analysis: The popliteal waveform is multiphasic. Left Posterior Tibial Artery Analysis: The posterior tibial waveform is multiphasic. Left Anterior Tibial Artery Analysis: The anterior tibial waveform is monophasic. Left Digits: Normal left digit pressure and waveform. CONCLUSIONS: 1. The above listed Ankle/Brachial Indices at rest are within normallimits bilaterally (for reference, normal resting TORREY is 0.9 to 1.4; TORREY >1.4 due tonon- compressible arteries is not diagnostic). 2. Bilateral Digit/Arm Indices are within normal limits (for reference,normal EFRAIN is >0.6). 3. There is evidence of left leg arterial insufficiency at the level ofanterior tibial artery. HISTORY: History of prior intervention on 04-24-25. PREVIOUS STUDIES: Previous study on 03-08-25 prior to intervention. Rt. 0.42, Lt. 0.81. DISCLAIMER: The study images and the final report will be retained in the patientchart by the Vascular Laboratory for the legally required time period. This chartconstitutes the legal record of any testing performed. ATTESTATION: I have reviewed and interpreted the pertinent images and measurements ofthis study. I attest to the conclusions in the final report that is provided above. Electronically Signed By: Thomas Gupta MD FACS 05/24/2025 11:11:06 AM CDT us Aniceto Foley MD IMG US PROCEDURES Final Resul t * ECG 12 lead (05/12/2025 12:03 PM CDT) Kay Ward EFFICIENCY EXPERT ECG ORDERABLES Final Res ult * POCT glucose (04/26/2025 8:01 AM CDT) Glucose, POC 151 70 - 199 mg/dL Blood 04/26/2025 8:01 AM CDT 04/26/2025 8:01 AM CDT us Aniceto Foley MD LAB POCT ORDERABLES - DEVICE Final Result Performing Organization Address [facility] Co de Phone Number [facility] Department [place] [address] * POCT glucose (04/25/2025 8:32 PM CDT) Glucose, POC 197 70 - 199 mg/dL Blood 04/25/2025 8:32 PM CDT 04/25/2025 8:32 PM CDT us Aniceto Foley MD LAB POCT ORDERABLES - DEVICE Final Result Performing Organization Address City/[facility]/ZIP Co de Phone Number [facility] Department [place] [address] * POCT glucose (04/25/2025 5:11 PM CDT) Glucose, POC 160 70 - 199 mg/dL Comment:Glu2: RN/MD Notified Glucose comment 1 Glu2: RN/MD Notified [facility] Blood 04/25/2025 5:11 PM CDT 04/25/2025 5:11 PM CDT us Aniceto Foley MD LAB POCT ORDERABLES - DEVICE Final Result Performing Organization Address [facility] Co de Phone Number [facility] [place] [address] * POCT glucose (04/25/2025 11:30 AM CDT) Glucose, POC 174 70 - 199 mg/dL Comment:Glu2: RN/MD Notified Glucose comment 1 Glu2: RN/MD Notified [facility] Blood 04/25/2025 11:3 0 AM CDT 04/25/2025 11:30 AM CDT us Aniceto Foley MD LAB POCT ORDERABLES - DEVICE Final Result Performing Organization Address [facility] [place] [address] * POCT glucose (04/25/2025 7:30 AM CDT) [facility] Glucose, POC 121 70 - 199 mg/dL Comment:Glu2: RN/ Notified Glucose comment 1 Glu2: RN/ Notified [facility] Blood 04/25/2025 7:30 AM CDT 04/25/2025 7:30 AM CDT us Aniceto Foley MD LAB POCT ORDERABLES - DEVICE Final Result Performing Organization Address [facility] Co de Phone Number [facility] [place] [address] * (ABNORMAL) eGFR (04/25/2025 1:25 AM CDT) eGFR 54(L) >=60 mL/min/1. 73 m2 Comment: [...] MD LAB BLOOD ORDERABLES Final Re sult [facility] Department [place] [address] * (ABNORMAL) CBC without differential (04/25/2025 1:25 AM CDT) WBC 7.83 3.80 - 9.90 K/cumm Hgb 9.7(L) 13.0 - 17.5 g/dL [facility] Hct 29.1(L) 38.9 - 50.3 % [facility] Plt 151 150 - 400 K/cumm [facility] MPV 11.1 9.1 - 12.3 fL [facility] RBC 3.13(L) 4.30 - 5.80 M/cumm [facility] MCV 93.0 81.3 - 96.4 fL [facility] MCH 31.0 27.1 - 33.3 pg [facility] MCHC 33.3 32.3 - 35.7 g/dL [facility] RDW CV 15.3(H) 11.1 - 14.9 % [facility] RDW SD 51.3(H) 35.7 - 48.1 fL [facility] NRBC abs 0.00 0.00 - 0.01 K/cumm [facility] Blood 04/25/2025 1:25 AM CDT 04/25/2025 1:53 AM CDT Aniceto Foley MD LAB BLOOD ORDERABLES Final Re sult [facility] Department [place] [address] * (ABNORMAL) Basic metabolic panel (04/25/2025 1:25 AM CDT) [facility] Sodium 145 135 - 145 mmol/L Potassium, pl 4.4 3.3 - 4.9 mmol/L [facility] Chloride 111(H) 97 - 110 mmol/L [facility] CO2 27 22 - 32 mmol/L [facility] Anion gap 7 2 - 15 mmol/L [facility] BUN 27(H) 6 - 25 mg/dL [facility] Creatinine 1.36(H) 0.80 - 1.30 mg/dL [facility] Glucose 107 70 - 199 mg/dL [facility] Comment: Interpretive Data Fasting [...] 2022. Calcium 10.1 8.5 - 10.3 mg/dL [facility] Blood 04/25/2025 1:25 AM CDT 04/25/2025 1:51 AM CDT Aniceto Foley MD LAB BLOOD ORDERABLES Final Re sult Performing Organization Address [facility]/ZIP Co de Phone Number [facility] Department [place] [address] * POCT glucose (04/24/2025 8:19 PM CDT) Glucose, POC 112 70 - 199 mg/dL Blood 04/24/2025 8:19 PM CDT 04/24/2025 8:19 PM CDT us Aniceto Foley MD LAB POCT ORDERABLES - DEVICE Final Result Performing Organization Address [facility] Co de Phone Number [facility] [place] [address] * POCT glucose (04/24/2025 4:59 PM CDT) Glucose, POC 136 70 - 199 mg/dL Comment:Glu2: RN/MD Notified Glucose comment 1 Glu2: RN/MD Notified [facility] Blood 04/24/2025 4:59 PM CDT 04/24/2025 4:59 PM CDT us Aniceto Foley MD LAB POCT ORDERABLES - DEVICE Final Result Performing Organization Address [facility] de Phone Number [facility] [place] [address] * (ABNORMAL) eGFR (04/24/2025 12:22 PM CDT) Pathologist [facility] eGFR 58(L) >=60 mL/min/1. 73 m2 Comment: [...] ORDERABLES Final Re sult Performing Organization Address City/[facility]/ZIP Co de Phone Number [facility] Department [place] [address] * (ABNORMAL) CBC without differential (04/24/2025 12:22 PM CDT) WBC 4.97 3.80 - 9.90 K/cumm Hgb 9.4(L) 13.0 - 17.5 g/dL [facility] Hct 28.9(L) 38.9 - 50.3 % [facility] Plt 141(L) 150 - 400 K/cumm [facility] MPV 11.2 9.1 - 12.3 fL [facility] RBC 3.09(L) 4.30 - 5.80 M/cumm [facility] MCV 93.5 81.3 - 96.4 fL [facility] MCH 30.4 27.1 - 33.3 pg [facility] MCHC 32.5 32.3 - 35.7 g/dL [facility] RDW CV 15.2(H) 11.1 - 14.9 % [facility] RDW SD 51.5(H) 35.7 - 48.1 fL [facility] NRBC abs 0.00 0.00 - 0.01 K/cumm [facility] Blood 04/24/2025 12:2 2 PM CDT 04/24/2025 12:39 PM CDT us Aniceto Foley MD LAB BLOOD ORDERABLES Final Re sult Performing Organization Address City/[facility]/ZIP Co de Phone Number [facility] Department [place] [address] * Lipid panel (04/24/2025 12:22 PM CDT) [...] revised on 2018. Triglycerides 75 <=149 mg/dL D[facility]IN [facility] Comment: Interpretive Data Ages < or = [...] revised on 2018. HDL 42 >=40 mg/dL [facility] Comment: Interpretive Data Ages [...] on 2018. LDL, calculated 78 <=129 mg/dL D[facility] Comment: Interpretive Data Ages < or = [...] revised on 2024. Non-HDL Cholesterol 93 mg/dL [facility] Comment: Interpretive Data Ages [...] last revised on 2018. Chol/HDL ratio 3 [facility] Blood 04/24/2025 12:2 2 PM CDT 04/24/2025 12:39 PM CDT us Aniceto Foley MD LAB BLOOD ORDERABLES Final Re sult [facility] Department [place] [address] * (ABNORMAL) Basic metabolic panel (04/24/2025 12:22 PM CDT) Sodium 140 135 - 145 mmol/L Potassium, pl 4.3 3.3 - 4.9 mmol/L [facility] Chloride 108 97 - 110 mmol/L [facility] CO2 26 22 - 32 mmol/L [facility] Anion gap 6 2 - 15 mmol/L [facility] BUN 32(H) 6 - 25 mg/dL [facility] Creatinine 1.29 0.80 - 1.30 mg/dL [facility] Glucose 117 70 - 199 mg/dL [facility] Comment: Interpretive Data Fasting [...] 2022. Calcium 9.9 8.5 - 10.3 mg/dL [facility] Blood 04/24/2025 12:2 2 PM CDT 04/24/2025 12:39 PM CDT us Aniceto Foley MD LAB BLOOD ORDERABLES Final Re sult Performing Organization Address City/[facility]/ZIP Co de Phone Number [facility] [place] [address] * POCT glucose (04/24/2025 12:11 PM CDT) Glucose, POC 121 70 - 199 mg/dL Blood 04/24/2025 12:1 1 PM CDT 04/24/2025 12:11 PM CDT us Aniceto Foley MD LAB POCT ORDERABLES - DEVICE Final Result [facility] [place] [address] * ANGIOGRAM - HYBRID ROOM, PLACEMENT STENT - ILIAC ARTERY - HYBRID ROOM (04/24/2025 11:50 AM CDT) Anatomical Region Laterality Modality X-Ray Angiograph y Narrative 04/24/2025 3:00 PM CDT Please see OpNote for result. us Aniceto Foley MD SURGICAL CASE ORDERS Final Re sult * ANGIOPLASTY BALLOON/STENT PLACEMENT, PERCUTANEOUS CORONARY LITHROTRIPSY W/ PCI (+) [id number] (04/24/2025 11:50 AM CDT) Anatomical Region Laterality Modality X-Ray Angiograph y Narrative 04/24/2025 3:00 PM CDT Please see OpNote for result. us Aniceto Foley MD CV CARDIAC CATH PROCEDURES Fi nal Result * POCT Activated clotting time, low range (04/24/2025 11:25 AM CDT) ACT 133 123 - 168 sec POC Device Number [id number] [facility] Blood 04/24/2025 11:2 5 AM CDT 04/24/2025 11:25 AM CDT us Aniceto Foley MD LAB POCT ORDERABLES - DEVICE Final Result Performing Organization Address [facility]/ZIP Co de Phone Number [facility] Department [place] [address] * (ABNORMAL) POCT Activated clotting time, low range (04/24/2025 11:19 AM CDT) ACT 253(H) 123 - 168 sec POC Device Number [id number] [facility] Blood 04/24/2025 11:1 9 AM CDT 04/24/2025 11:19 AM CDT us Aniceto Foley MD LAB POCT ORDERABLES - DEVICE Final Result Performing Organization Address [facility]/ZIP Co de Phone Number [facility] [place] [address] * (ABNORMAL) POCT Activated clotting time, low range (04/24/2025 10:59 AM CDT) ACT 265(H) 123 - 168 sec POC Device Number [id number] [facility] Blood 04/24/2025 10:5 9 AM CDT 04/24/2025 10:59 AM CDT us Aniceto Foley MD LAB POCT ORDERABLES - DEVICE Final Result Performing Organization Address [facility] Co de Phone Number [facility] [place] [address] * (ABNORMAL) POCT Activated clotting time, low range (04/24/2025 10:33 AM CDT) ACT 253(H) 123 - 168 sec POC Device Number [id number] [facility] Blood 04/24/2025 10:3 3 AM CDT 04/24/2025 10:33 AM CDT us Aniceto Foley MD LAB POCT ORDERABLES - DEVICE Final Result Performing Organization Address [facility] Co de Phone Number [facility] [place] [address] * (ABNORMAL) POCT Activated clotting time, low range (04/24/2025 10:00 AM CDT) ACT 260(H) 123 - 168 sec POC Device Number [id number] DARIN [facility] Blood 04/24/2025 10:0 0 AM CDT 04/24/2025 10:00 AM CDT us Aniceto Foley MD LAB POCT ORDERABLES - DEVICE Final Result Performing Organization Address [facility] Co de Phone Number [facility] Department [place] [address] * (ABNORMAL) POCT Activated clotting time, low range (04/24/2025 9:48 AM CDT) ACT 213(H) 123 - 168 sec POC Device Number [id number] [facility] Blood 04/24/2025 9:48 AM CDT 04/24/2025 9:48 AM CDT us Aniceto Foley MD LAB POCT ORDERABLES - DEVICE Final Result [facility] Department [place] [address] * (ABNORMAL) POC Blood Gas and Chemistries, Arterial - (04/24/2025 9:41 AM CDT) [facility] pH, Art POC 7.45 7.35 - 7.45 pCO2, Art POC 36 35 - 45 mmHg [facility] pO2, Art POC 190(H) 83 - 108 mmHg [facility] Na, POC 141 135 - 145 mmol/L [facility] K POC 4.5 3.3 - 4.9 mmol/L [facility] Comment: Interpretive Data Not all point of care methods assess for hemolysis. Confirm with instrument and retest K+ if not consistent with clinical signs and symptoms. Current Interpretive Data was last revised on 2023. Cl, POC 113(H) 97 - 110 mmol/L [facility] Ionized Ca, POC 5.78(H) 4.50 - 5.10 mg/dL [facility] Glucose, POC 136 70 - 199 mg/dL [facility] Lactate POC 1.1 0.7 - 2.0 mmol/L [facility] SO2 (samuel) arterial 99(H) 90 - 95 % [facility] Base excess, POC 1.1 mmol/L [facility] HCO3, Art POC 26 20 - 30 mmol/L [facility] Hct, POC 31.0(L) 41.4 - 51.6 % [facility] Total Hb, POC 10.3(L) 13.8 - 17.2 g/dL [facility] Blood 04/24/2025 9:41 AM CDT 04/24/2025 9:41 AM CDT Aniceto Foley MD LAB POCT ORDERABLES - DEVICE Final Result [facility] Department [place] [address] * ND AN PROCEDURE PLACEHOLDER (04/24/2025 9:20 AM CDT) Narrative Jorge Sánchez CRNA - 04/24/2025 9:20 AM CDT Jorge Sánchez CRNA 04/24/2025 9:21 AM Peripheral IV Catheter Patient location: OR Staff: Placed by: MOLD CHIPPER: Jorge Sánchez CRNA Preprocedure prep: Prep solution: [...] MD ANESTHESIA ORDERABLES Fi nal Result * ND AN PROCEDURE PLACEHOLDER (04/24/2025 9:19 AM CDT) [...] MD ANESTHESIA ORDERABLES Fi nal Result * ND AN PROCEDURE PLACEHOLDER (04/24/2025 9:18 AM CDT) Narrative Jorge Sánchez CRNA - 04/24/2025 9:18 AM CDT Jorge Sánchez CRNA 04/24/2025 9:19 AM Arterial Line Patient location: OR Indication: continuous blood pressure monitoring and blood sampling needed Ultrasound assisted: yes Staff: Placed by: MOLD CHIPPER: Jorge Sánchez CRNA Other staff: Yonas Meredith [...] MD ANESTHESIA ORDERABLES Fi nal Result * ND AN ELECTIVE ENDOTRACHEAL AIRWAY, ND AN PROCEDURE PLACEHOLDER (04/24/2025 8:50 AM CDT) [...] Mac 4 blade w grade 2b view Yuko Rodriguez MD ANESTHESIA ORDERABLES Fi nal Result * POCT glucose (04/24/2025 7:26 AM CDT) Glucose, POC 135 70 - 199 mg/dL Blood 04/24/2025 7:26 AM CDT 04/24/2025 7:26 AM CDT Aniceto Foley MD LAB POCT ORDERABLES - DEVICE Final Result Performing Organization Address City/[facility]/ZIP Co de Phone Number [facility] Department [place] [address] * Type and screen (04/24/2025 7:18 AM CDT) Pathologist [facility], indirect Negative ABO Rh A Negative [facility] Blood 04/24/2025 7:18 AM CDT 04/24/2025 7:31 AM CDT Narrative [facility] - 04/24/2025 8:34 AM CDT Has the patient had Daratumumab or Isatuximab in the past 6 months?->Unknown Aniceto Foley MD LAB BLOOD BANK TEST ORDERABLE S Final Result Performing Organization Address City/[facility]/ZIP Co de Phone Number [facility] Department [place] [address] * Prepare RBC: 2 Units (04/24/2025 6:46 AM CDT) Product code [id number] [facility] Unit Number [id number] 3-M [facility] Product Blood Type ANEG [facility] Dispense Status RETURNED [facility] Product code [id number] Unit Number [id number] 5-D [facility] Product Blood Type ANEG [facility] Dispense Status RETURNED [facility] Blood 04/24/2025 6:46 AM CDT 04/24/2025 6:46 AM CDT N[facility]ative [facility] - 04/24/2025 11:58 AM CDT Specify Procedure:->Vascular surgery Are special requirements needed? (All products are leukoreduced and CMV- safe)- >No Date required:-[id number] LRRBC # of [id number] Reasons:-Hold for procedure (specify procedure)} Aniceto Foley MD BLOOD BANK PRODUCT ORDERABLES Final Result Performing Organization Address [facility] Co de Phone Number [facility] Department [place] [address] * (ABNORMAL) Hemoglobin A1c (03/17/2025 1:05 PM CDT) Hgb A1C 6.7(H) 4.0 - 5.6 % Estimated Average Glucose 146 mg/dL [facility] Comment: The ADA recommends reporting an estimated Average Glucose (eAG) with all Hemoglobin A1c results using the equation derived from a study of 507 normal and diabetic adults. Minority populations were underrepresented and children were not included. (Diabetes Care 31:7997-2381, 2008). The eAG is not equivalent to a fasting glucose. Blood 03/17/2025 1:05 PM CDT 03/17/2025 1:05 PM CDT Sagrario Fernandez NP LAB BLOOD ORDERABLES Fi nal Result Performing Organization Address City/[facility]/ZIP Co de Phone Number [facility] [address] Department [place] [address] from Last 3 Months or Most Recently Relevant to Health Maintenance Insurance [employer] MEDICARE DR MART[address] [place], [place] [id number] MEDICARE [facility] MEDICARE [facility] Advance Directives For more information, please contact: [phone] * Full Code (Latest Code Status on File) Date Activated Date Inactivated Comments 04/24/2025 3:12 PM 04/26/2025 3:40 PM * Full Code Date Activated Date Inactivated Comments 11/09/2024 2:36 PM 11/12/2024 6:36 PM * Full Code Date Activated Date Inactivated Comments 10/30/2022 5:29 PM 10/31/2022 7:15 PM * Full Code Date Activated Date Inactivated Comments 08/16/2019 9:46 AM 08/16/2019 5:30 PM Care Teams Manager Adult Relationship Specialty Start Date End Date Fuentes Orellana MD PCP - General 11/28/16 Itz Iyer MD [address] [address] Consulting Physician Urology 05/31/18 Shawnee Mckinney MD [address] [facility] [address] [place], [place] [address] Referring Physician Urology 06/03/18 Chicho Clayton MD [address] [facility] [address] [place] [address] Medical Oncologist/Hematologis t Medical Oncology 06/07/18 Maria Guadalupe Palacios, RN Registered Nurse 06/10/18 Lupillo Davenport MD Referring Physician Radiation Oncology 06/16/18 Danis Meza NP [address] [place] [address] Nurse Practitioner Urology 10/06/22 Antonette Owens NP [address] [place] [address] Nurse Practitioner Cardiovascular Disease 10/06/22 Aniceto Foley MD [address] [place] [address] Surgeon Vascular Surgery 10/31/22
--- OUTSIDE RECORDS SUMMARY | 2025-07-06 19:27 | XMS_ITS | Clinical Summary ---
Author Organization [facility] Address [address] [place] [address] Care Team Providers Care Leather Cleaner Name Role Phone Fuentes Orellana MD Primary Care Provider [phone] Allergies No known active allergies Medications amLODIPine [...] 2025 06/27/2022, 08/15/2021, 11/24/2020, Additional history exists Influenza Adult (#1) 2025 05/31/2022, 05/31/2019, 06/15/2018, Additional history exists DTaP, Tdap and Td Vaccines (2 - Td or Tdap) 10/07/2030 10/07/2020 Hepatitis A Vaccines Aged Out No long er eligible based on patient's age to complete this topic Meningococcal B Vaccine Aged Out No l onger eligible based on patient's age to complete this topic Meningococcal Vaccine Aged Out No kenny aye eligible based on patient's age to complete this topic RSV Immunizations Under 20 Months Aged Out No longer eligible based on patient's age to complete this topic Insurance MEDICARE [facility] Care Teams Leather Cleaner Relationship Specialty Start Date End Date Fuentes Orellana MD [address] [place] [address] PCP - General FAMILY PRACTICE 11/29/22
--- OUTSIDE RECORDS SUMMARY | 2025-07-06 19:27 | XMS_ITS | Encounter Summary ---
Author Organization [facility] Address [address] [place] [address] Phone Care Team Providers Care Radiological Metallurgist Name Role Phone Fuentes Orellana MD Primary Care Provider [phone] Brent Dickinson DO Unavailable [phone] Faviola Jiménez STEAM BONE PRESS TENDER, WOOD CHOPPER Unavailable Shawnee Mckinney MD Unavailable Chicho Clayton MD Unavailable Lai Lambert STEAM BONE PRESS TENDER, WOOD CHOPPER Unavailable [phone] Kami Meneses MD Unavailable [phone] Anette Bond MD Unavailable [phone] Kay Gordon STEAM BONE PRESS TENDER, WOOD CHOPPER Unavailable Kami Meneses MD Unavailable [phone] Kami Meneses MD Unavailable [phone] Kami Meneses MD Unavailable [phone] Encounter Details Date Type Department Care Team (Late st Contact Info) Description 12/16/2024 Telephone [facility] [address] [place] [address] Kami Meneses MD [address] [place] [address] Social History Tobacco Use Types Packs/Day Years [...] 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 Chicho Clayton at [place] for prostate. * Telephone Encounter - Kami Meneses MD - 12/16/2024 11:45 AM CDT Can you ask the patient who follows him for his prostate cancer? documented in this encounter Plan of Treatment Not on file documented as of this encounter Visit Diagnoses Not on filedocumented in this encounter Care Teams Radiological Metallurgist Relationship Specialty Start Date End Date Fuentes Orellana MD [address] [address] PCP - General Family Medicine 07/06/15 Brent Dickinson DO [address] [address] Gastroenterology 06/27/16 Faviola Jiménez APRN, WOOD CHOPPER [address] [address] Nurse Practitioner Advanced Practice Nurse 07/22/16 Shawnee Mckinney MD [address] [facility] [address] [place] [address] Urologist Urology 06/07/19 Chicho Clayton MD 49[address] [facility] [address] [place] [address] Oncology 06/13/19 Lai Lambert APRN, WOOD CHOPPER [address] [place] [address] Nurse Practitioner Advanced Practice Nurse 02/10/23 Kami Meneses MD #[address] [address] Consulting Physician Urology 06/16/23 Anette Bond MD [address] [place] [address] Consulting Physician Gastroenterology 12/25/22 Kay Gordon APRN, WOOD CHOPPER [address] [place] [address] Nurse Practitioner Advanced Practice Nurse 06/16/24 Kami Meneses MD #[address] [address] Consulting Physician Urology 08/19/24 Kami Meneses MD [address] [facility] [address] [place] [address] Consulting Physician Urology 01/06/25 Kami Meneses MD [address] [facility] [address] [place] [address] Consulting Physician Urology 03/08/25 documented as of this encounter
--- OUTSIDE RECORDS SUMMARY | 2025-07-06 19:27 | XMS_ITS | Encounter Summary ---
Author Organization [facility] Address [address] [place] [address] Care Team Providers Care Personnel Monitor Name Role Phone Fuentes Orellana MD Primary Care Provider [phone] Itz Iyer MD Unavailable [phone] Lupillo Davenport MD Unavailable [phone] Lupillo Davenport MD Unavailable [phone] Shawnee Mckinney MD Unavailable [phone] Chicho Clayton MD Unavailable Newton Weeks MD Unavailable [phone] Maria Guadalupe Palacios RN Unavailable Unava ilable Lupillo Davenport MD Unavailable [phone] Itz Iyer MD Unavailable [phone] Itz Iyer MD Unavailable [phone] Itz Iyer MD Unavailable [phone] Itz Iyer MD Unavailable [phone] Itz Iyer MD Unavailable [phone] Itz Iyer MD Unavailable [phone] Danis Meza NP Unavailable [phone] Antonette Owens NP Unavailable Aniceto Foley MD Unavailable [phone] Encounter Details Date Type Department Care Team (Late st Contact Info) Description 03/30/[address] 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 Gender Identity Not on file Sexual Orientation [...] on filedocumented in this encounter Care Teams Personnel Monitor Relationship Specialty Start Date End Date Fuentes Orellana MD PCP - General 11/28/16 Itz Iyer MD [address] [facility] [address] [place] [address] Consulting Physician Urology 05/31/18 Lupillo Davenport MD [address] [place] [address] Referring Physician Radiation Oncology 05/31/18 Lupillo Davenport MD [address] [place] [place] [address] Referring Physician Radiation Oncology 05/31/18 Shawnee Mckinney MD [address] [facility] [address] [place] [address] Referring Physician Urology 06/03/18 Chicho Clayton MD [address] [facility] [address] [place] [address] Medical Oncologist/Hematologis t Medical Oncology 06/07/18 Newton Weeks MD [address] [facility] [address] [place] [address] Referring Physician Radiation Oncology 06/07/18 Maria Guadalupe Palacios RN Registered Nurse 06/10/18 Lupillo Davenport MD [address] [place] [address] [place] [address] Referring Physician Radiation Oncology 06/16/18 Itz Iyer MD [address] [address] Consulting Physician Urology 06/17/18 06/17/18 Itz Iyer MD [address] [place] [address] Consulting Physician Urology 06/18/18 06/18/18 Itz Iyer MD [address] [address] Consulting Physician Urology 06/18/18 06/18/18 Itz Iyer MD [address] [address] Consulting Physician Urology 06/22/18 06/22/18 Itz Iyer MD [address] [place] [address] Consulting Physician Urology 07/01/18 07/01/18 Itz Iyer MD [address] [place] [address] Consulting Physician Urology 07/06/18 07/06/18 Danis Meza NP [address] [place] [address] Nurse Practitioner Urology 10/06/22 Antonette Owens NP [address] [place] [address] Nurse Practitioner Cardiovascular Disease 10/06/22 Aniceto Foley MD [address] [place] [address] Surgeon Vascular Surgery 10/31/22 documented as of this encounter
--- OUTSIDE RECORDS SUMMARY | 2025-07-06 19:27 | XMS_ITS | Encounter Summary ---
Author Organization [facility] Address [address] [place] [address] Phone Care Team Providers Care Theology Professor Name Role Phone Fuentes Orellana MD Primary Care Provider [phone] Brent Dickinson DO Unavailable [phone] Faviola Jiménez FILLETER, FOOD AND BEVERAGE OPERATIONS MANAGER Unavailable Shawnee Mckinney MD Unavailable Chicho Clayton MD Unavailable Lai Lambert FILLETER, FOOD AND BEVERAGE OPERATIONS MANAGER Unavailable [phone] Kami Meneses MD Unavailable [phone] Anette Bond MD Unavailable [phone] Kay Gordon FILLETER, FOOD AND BEVERAGE OPERATIONS MANAGER Unavailable Kami Meneses MD Unavailable [phone] Kami Meneses MD Unavailable [phone] Kami Meneses MD Unavailable [phone] Encounter Details Date Type Department Care Team (Late st Contact Info) Description 08/22/2024 Telephone [facility] [address] [place] [address] Kami Meneses MD [address] [place] [address] Social History Tobacco Use Types Packs/Day Years [...] 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 OR POLICY ADVISOR * Telephone Encounter - Elidia Dill - 08/29/2024 8:20 AM CST Please see Dr. Otto message. OR POLICY ADVISOR * Telephone Encounter - Kami Meneses MD [...] sphincter. This needs to be done at [facility] by id. He will need a urine culture 14 days prior to surgery. Hibiclens shower the night before morning of surgery, vancomycin and gentamicin for antibiotics OR POLICY ADVISOR OR POLICY ADVISOR documented in this encounter Plan of Treatment Not on file documented as of this encounter Visit Diagnoses Not on filedocumented in this encounter Care Teams Theology Professor Relationship Specialty Start Date End Date Fuentes Orellana MD [address] [place] [place] [address] PCP - General Family Medicine 07/06/15 Brent Dickinson DO [address] [facility] [address] Gastroenterology 06/27/16 Faviola Jiménez APRN, FOOD AND BEVERAGE OPERATIONS MANAGER [address] [facility] [address] Nurse Practitioner Advanced Practice Nurse 07/22/16 Shawnee Mckinney MD [address] [facility] [address] [place] [address] Urologist Urology 06/07/19 Chicho Clayton MD [address] [facility] [address] [place] [address] Oncology 06/13/19 Lai Lambert APRN, FOOD AND BEVERAGE OPERATIONS MANAGER [address] [place] [address] Nurse Practitioner Advanced Practice Nurse 02/10/23 Kami Meneses MD [address] [address] Consulting Physician Urology 06/16/23 Anette Bond MD [address] [place] [address] Consulting Physician Gastroenterology 12/25/22 Kay Gordon APRN, FOOD AND BEVERAGE OPERATIONS MANAGER [address] [place] [address] Nurse Practitioner Advanced Practice Nurse 06/16/24 Kami Meneses MD [address] [address] Consulting Physician Urology 08/19/24 Kami Meneses MD [address] [address] Consulting Physician Urology 01/06/25 Kami Meneses MD [address] [address] Consulting Physician Urology 03/08/25 documented as of this encounter
--- OUTSIDE RECORDS SUMMARY | 2025-07-06 19:27 | XMS_ITS | Encounter Summary ---
Author Organization [facility] Healthcare Address [address] [place] [address] Care Team Providers Care Director Of Placement Name Role Phone Fuentes Orellana MD Primary Care Provider + [phone] Itz Iyer MD Unavailable [phone] Lupillo Davenport MD Unavailable [phone] Lupillo Davenport MD Unavailable [phone] Shawnee Mckinney MD Unavailable [phone] Chicho Clayton MD Unavailable Newton Weeks MD Unavailable +[phone] Maria Guadalupe Palacios RN Unavailable Unava ilable Lupillo Davenport MD Unavailable +[phone] Itz Iyer MD Unavailable [phone] Itz Iyer MD Unavailable +[phone] Itz Iyer MD Unavailable +[phone] Itz Iyer MD Unavailable +[phone] Itz Iyer MD Unavailable +[phone] Itz Iyer MD Unavailable [phone] Danis Meza NP Unavailable [phone] Antonette Owens NP Unavailable Aniceto Foley MD Unavailable [phone] Encounter Details Date Type Department Care Team (Late st Contact Info) Description 03/16/2018 Orders Only [facility] Health Information Management [address] [place] [address] Scanning, Provider Social History Tobacco Use Types Packs/Day Years Used Date Smoking Tobacco: Never Smokeless Tobacco: Never Alcohol Use Standard Drinks/Week Comments Yes 0 (1 standard drink = 0.6 oz pur e alcohol) Sex and Gender Information Value Date Recorded Sex Assigned at Not on file 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 [address] [place] [address] Referring Physician Urology 06/03/18 Chicho Clayton MD [address] [facility] [address] [place] [address] Medical Oncologist/Hematologis t Medical Oncology 06/07/18 Newton Weeks MD [address] [facility] [address] [place] [address] Referring Physician Radiation Oncology 06/07/18 Maria Guadalupe Palacios RN Registered Nurse 06/10/18 Lupillo Davenport MD [address] [place] [address] [place] [address] Referring Physician Radiation Oncology 06/16/18 Itz Iyer MD [address] [address] Consulting Physician Urology 06/17/18 06/17/18 Itz Iyer MD [address] [place] [address] Consulting Physician Urology 06/18/18 06/18/18 Itz Iyer MD [address] [address] Consulting Physician Urology 06/18/18 06/18/18 Itz Iyer MD [address] [address] Consulting Physician Urology 06/22/18 06/22/18 Itz Iyer MD [address] [place] [address] Consulting Physician Urology 07/01/18 07/01/18 Itz Iyer MD [address] [place] [address] Consulting Physician Urology 07/06/18 07/06/18 Danis Meza NP [address] [place] [address] Nurse Practitioner Urology 10/06/22 Antonette Owens NP [address] [place] [address] Nurse Practitioner Cardiovascular Disease 10/06/22 Aniceto Foley MD [address] [place] [address] Surgeon Vascular Surgery 10/31/22 documented as of this encounter
--- OUTSIDE RECORDS SUMMARY | 2025-07-06 19:27 | XMS_ITS | Encounter Summary ---
Author Organization [facility] Healthcare Address [address] [place] [address] Care Team Providers Care Waterproofing Mixer Name Role Phone Fuentes Orellana MD Primary Care Provider + [phone] Itz Iyer MD Unavailable [phone] Shawnee Mckinney MD Unavailable [phone] Chicho Clayton MD Unavailable Maria Guadalupe Palacios RN Unavailable Unava ilable Lupillo Davenport MD Unavailable [phone] Danis Meza EXPLOITATION ANALYST Unavailable [phone] Antonette Owens NP Unavailable Aniceto Foley MD Unavailable [phone] Encounter Details Date Type Department Care Team (Late st Contact Info) Description 07/11/2024 Orders Only [facility] Health Information Management [address] [place] [address] Scanning, Provider Social History Tobacco Use Types [...] on file 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 Gender Identity Not on file Sexual Orientation [...] on filedocumented in this encounter Care Teams Waterproofing Mixer Relationship Specialty Start Date End Date Fuentes Orellana MD PCP - General 11/28/16 Itz Iyer MD [address] [place] [address] Consulting Physician Urology 05/31/18 Shawnee Mckinney MD [address] [facility] [address] [place] [address] Referring Physician Urology 06/03/18 Chicho Clayton MD [address] [facility] [address] [place] [address] Medical Oncologist/Hematologis t Medical Oncology 06/07/18 Maria Guadalupe Palacios, RN Registered Nurse 06/10/18 Lupillo Davenport MD Referring Physician Radiation Oncology 06/16/18 Danis Meza NP [address] [facility] [address] [place] [address] Nurse Practitioner Urology 10/06/22 Antonette Owens NP [address] [facility] [address] [place] [address] Nurse Practitioner Cardiovascular Disease 10/06/22 Aniceto Foley MD [address] [place] [address] Surgeon Vascular Surgery 10/31/22 documented as of this encounter
--- OUTSIDE RECORDS SUMMARY | 2025-07-06 19:27 | XMS_ITS | Encounter Summary ---
Author Organization [facility] Address [address] [facility] [address] [place] [address] Care Team Providers Care Business Services Director Name Role Phone Fuentes Orellana MD Primary Care Provider + [phone] Fuentes Orellana MD Primary Care Provider + [phone] Itz Iyer MD Unavailable [phone] Lupillo Davenport MD Unavailable [phone] Lupillo Davenport MD Unavailable [phone] Shawnee Mckinney MD Unavailable [phone] Chicho Clayton MD Unavailable Newton Weeks MD Unavailable [phone] Maria Guadalupe Palacios RN Unavailable Unava ilable Lupillo Davenport MD Unavailable [phone] Itz Iyer MD Unavailable [phone] Itz Iyer MD Unavailable [phone] Itz Iyer MD Unavailable [phone] Itz Iyer MD Unavailable +[phone] Itz Iyer MD Unavailable [phone] Itz Iyer MD Unavailable [phone] Danis Meza MANAGER WEALTH MANAGEMENT Unavailable [phone] Rater, Antonette MANAGER WEALTH MANAGEMENT Unavailable Aniceto Foley MD Unavailable [phone] Encounter Details Date Type Department Care Team (Late st Contact Info) Description 11/18/2016 Orders Only [facility] Provider, MD [facility] [place] [address] Social History Tobacco Use Types Packs/Day Years Used Date Smoking Tobacco: Never Assessed Sex and Gender Information Value Date Recorded Sex Assigned at Not on file 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 Gender Identity Not on file Sexual Orientation [...] filedocumented in this encounter Care Teams Business Services Director Relationship Specialty Start Date End Date Fuentes Orellana MD PCP - General 11/28/16 Fuentes Orellana MD PCP - General 07/14/07 11/27/16 Itz Iyer MD [address] [facility] [address] [place] [address] [id number] Consulting Physician Urology 05/31/18 Lupillo Davenport MD [address] [place] [address] Referring Physician Radiation Oncology 05/31/18 Lupillo Davenport MD [address] [place] [address] Referring Physician Radiation Oncology 05/31/18 Shawnee Mckinney MD [address] [facility] [address] [place] [address] Referring Physician Urology 06/03/18 Chicho Clayton MD [address] [facility] [address] [place] [address] Medical Oncologist/Hematologis t Medical Oncology 06/07/18 Newton Weeks MD [address] [facility] [address] [place] [address] Referring Physician Radiation Oncology 06/07/18 Maria Guadalupe Palacios, RN Registered Nurse 06/10/18 Lupillo Davenport MD [address] [place] [address] Referring Physician Radiation Oncology 06/16/18 Itz Iyer MD [address] [address] Consulting Physician Urology 06/17/18 06/17/18 Itz Iyer MD [address] [address] Consulting Physician Urology 06/18/18 06/18/18 Itz Iyer MD [address] [place] [address] Consulting Physician Urology 06/18/18 06/18/18 Itz Iyer MD [address] [place] [address] Consulting Physician Urology 06/22/18 06/22/18 Itz Iyer MD [address] [place] [address] Consulting Physician Urology 07/01/18 07/01/18 Itz Iyer MD [address] [place] [address] Consulting Physician Urology 07/06/18 07/06/18 Danis Meza NP [address] [place] [address] Nurse Practitioner Urology 10/06/22 Antonette Owens NP [address] [place] [address] Nurse Practitioner Cardiovascular Disease 10/06/22 Aniceto Foley MD [address] [place] [address] Surgeon Vascular Surgery 10/31/22 documented as of this encounter
--- OUTSIDE RECORDS SUMMARY | 2025-07-06 19:27 | XMS_ITS | Encounter Summary ---
Author Organization [facility] Healthcare Address [address] [place] [address] Care Team Providers Care Logistics Loss Prevention Manager Name Role Phone Fuentes Orellana MD Primary Care Provider + [phone] Itz Iyer MD Unavailable +[phone] Lupillo Davenport MD Unavailable [phone] Lupillo Davenport MD Unavailable [phone] Shawnee Mckinney MD Unavailable [phone] Cihcho Clayton MD Unavailable Newton Weeks MD Unavailable [phone] Maria Guadalupe Palacios RN Unavailable Unava ilable Lupillo Davenport MD Unavailable [phone] Itz Iyer MD Unavailable [phone] Itz Iyer MD Unavailable +[phone] Itz Iyer MD Unavailable +[phone] Itz Iyer MD Unavailable +[phone] Itz Iyer MD Unavailable [phone] Itz Iyer MD Unavailable [phone] Danis Meza NP Unavailable [phone] Antonette Owens NP Unavailable Aniceto Foley MD Unavailable Encounter Details Date Type Department Care Team (Late st Contact Info) Description 04/12/2018 Orders Only [facility] Health Information Management [address] [place] [address] Scanning, Provider Social History Tobacco Use Types Packs/Day Years Used Date Smoking Tobacco: Never Smokeless Tobacco: Never Alcohol Use Standard Drinks/Week Comments Yes 0 (1 standard drink = 0.6 oz pur e alcohol) Sex and Gender Information Value Date Recorded Sex Assigned at Not on file Legal 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 Gender Identity Not on file Sexual Orientation [...] on filedocumented in this encounter Care Teams Logistics Loss Prevention Manager Relationship Specialty Start Date End Date Fuentes Orellana MD PCP - General 11/28/16 Itz Iyer MD [address] [facility] [address] [place] [address] Consulting Physician Urology 05/31/18 Lupillo Davenport MD [address] [place] [address] Referring Physician Radiation Oncology 05/31/18 Lupillo Davenport MD [address] [place] [address] Referring Physician Radiation Oncology 05/31/18 Shawnee Mckinney MD [address] [facility] [address] [place] [address] Referring Physician Urology 06/03/18 Chicho Clayton MD [address] [facility] [address] [place] [address] Medical Oncologist/Hematologis t Medical Oncology 06/07/18 Newton Weeks MD [address] [facility] [address] [place] [address] Referring Physician Radiation Oncology 06/07/18 Maria Guadalupe Palacios RN Registered Nurse 06/10/18 Lupillo Davenport MD [address] [place] [address] Referring Physician Radiation Oncology 06/16/18 Itz Iyer MD [address] [place] [address] Consulting Physician Urology 06/17/18 06/17/18 Itz Iyer MD [address] [place] [address] Consulting Physician Urology 06/18/18 06/18/18 Itz Iyer MD [address] [address] Consulting Physician Urology 06/18/18 06/18/18 Itz Iyer MD [address] [place] [address], [place] [address] Consulting Physician Urology 06/22/18 06/22/18 Itz Iyer MD [address] [place] [address] Consulting Physician Urology 07/01/18 07/01/18 Itz Iyer MD [address] [place] [address] Consulting Physician Urology 07/06/18 07/06/18 Danis Meza NP [address] [facility] [address] [place] [address] Nurse Practitioner Urology 10/06/22 Antonette Owens NP [address] [facility] [address] [place] [address] Nurse Practitioner Cardiovascular Disease 10/06/22 Aniceto Foley MD [address] [place] [address] Surgeon Vascular Surgery 10/31/22 documented as of this encounter
--- OUTSIDE RECORDS SUMMARY | 2025-07-06 19:27 | XMS_ITS | Encounter Summary ---
Author Organization [facility] Address [address] [place] [address] Phone Care Team Providers Care Trust Administrator Name Role Phone Fuentes Orellana MD Primary Care Provider + [phone] Itz Iyer MD Unavailable [phone] Shawnee Mckinney MD Unavailable [phone] Chicho Clayton MD Unavailable Maria Guadalupe Palacios RN Unavailable Unava ilable Lupillo Davenport MD Unavailable [phone] Danis Meza HEATER OPERATOR Unavailable Antonette Owens NP Unavailable Aniceto Foley MD Unavailable [phone] Encounter Details Date Type Department Care [...] on file Legal 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 Male 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 PHYSICIAN Gender Identity Not on file Sexual [...] on filedocumented in this encounter Care Teams Trust Administrator Relationship Specialty Start Date End Date Fuentes Orellana MD PCP - General 11/28/16 Itz Iyer MD [address] [place] [address] Consulting Physician Urology 05/31/18 Shawnee Mckinney MD [address] [facility] [address] [place] [address] Referring Physician Urology 06/03/18 Chicho Clayton MD [address] [place] [address] Medical Oncologist/Hematologis t Medical Oncology 06/07/18 Maria Guadalupe Palacios, RN Registered Nurse 06/10/18 Lupillo Davenport MD Referring Physician Radiation Oncology 06/16/18 Danis Meza NP [address] [place] [address] Nurse Practitioner Urology 10/06/22 Antonette Owens NP [address] [place] [address] Nurse Practitioner Cardiovascular Disease 10/06/22 Aniceto Foley MD [address] [place] [address] Surgeon Vascular Surgery 10/31/22 documented as of this encounter
--- OUTSIDE RECORDS SUMMARY | 2025-07-06 19:27 | XMS_ITS | Encounter Summary ---
Author Organization [facility] Address [address] [place] [address] Phone Care Team Providers Care Architectural Technician Name Role Phone Fuentes Orellana MD Primary Care Provider [phone] Brent Dickinson DO Unavailable [phone] Faviola Jiménez COPYRIGHT EXPERT, DIELECTRIC EMBOSSING MACHINE OPERATOR Unavailable Shawnee Mckinney MD Unavailable Chicho Clayton MD Unavailable Lai Lambert COPYRIGHT EXPERT, DIELECTRIC EMBOSSING MACHINE OPERATOR Unavailable [phone] Kami Meneses MD Unavailable [phone] Anette Bond MD Unavailable [phone] Kay Gordon COPYRIGHT EXPERT, DIELECTRIC EMBOSSING MACHINE OPERATOR Unavailable Kami Meneses MD Unavailable [phone] Kami Meneses MD Unavailable [phone] Kami Meneses MD Unavailable [phone] Reason for Visit * Reason Comments Medication Refill Encounter Details Date Type Department Care Team (Late st Contact Info) Description 11/12/2022 Refill [facility] - Gastroenterology - [place] [address] [place] [address] Ingrid Mccloud Ashley, PAC [address] [place] [address] Medication Refill Social History Tobacco Use Types [...] 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 Not on file [...] on filedocumented in this encounter Care Teams Architectural Technician Relationship Specialty Start Date End Date Fuentes Orellana MD [address] [place] [address] PCP - General Family Medicine 07/06/15 Brent Dickinson DO [address] [address] Gastroenterology 06/27/16 Faviola Jiménez APRN, DIELECTRIC EMBOSSING MACHINE OPERATOR [address] [place] [address] Nurse Practitioner Advanced Practice Nurse 07/22/16 Shawnee Mckinney MD 4960 [facility] [address] [place] [address] Urologist Urology 06/07/19 Chicho Clayton MD 4921 [facility] [address] [place] [address] Oncology 06/13/19 Lai Lambert APRN, DIELECTRIC EMBOSSING MACHINE OPERATOR [address] [place] [address] Nurse Practitioner Advanced Practice Nurse 02/10/23 Kami Meneses MD #[address] [address] Consulting Physician Urology 06/16/23 Anette Bond MD #[address] [place] [address] Consulting Physician Gastroenterology 12/25/22 Kay Gordon APRN, DIELECTRIC EMBOSSING MACHINE OPERATOR [address] [place] [address] Nurse Practitioner Advanced Practice Nurse 06/16/24 Kami Meneses MD [address], [facility] [address] [place] [address] Consulting Physician Urology 08/19/24 Kami Meneses MD [address], [facility] [address] [place] [address] Consulting Physician Urology 01/06/25 Kami Meneses MD [address], [facility] [address] [place] [address] Consulting Physician Urology 03/08/25 documented as of this encounter
--- OUTSIDE RECORDS SUMMARY | 2025-07-06 19:27 | XMS_ITS | Clinical Summary ---
Author Organization [facility] Address [address], [facility] [address] [place] [address] Phone Care Team Providers Care Linen Room Houseperson Name Role Phone Fuentes Orellana MD Primary Care Provider [phone] Brent Dickinson DO Unavailable [phone] Faviola Jiménez HAT FINISHING MATERIALS PREPARER, SIGN CARPENTER Unavailable Shawnee Mckinney MD Unavailable Chicho Clayton MD Unavailable Lai Lambert HAT FINISHING MATERIALS PREPARER, SIGN CARPENTER Unavailable [phone] Kami Meneses MD Unavailable [phone] Anette Bond MD Unavailable [phone] Kay Gordon APRN, SIGN CARPENTER Unavailable Kami Meneses MD Unavailable [phone] Kami Meneses MD Unavailable [phone] Kami Meneses MD Unavailable Allergies Active Allergy Reactions Criticality [...] mg by mouth every morning. 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 Not on file Not on cory e Last Filed Vital Signs Vital Sign Reading Time Taken Comments Blood Pressure 135/71 04/28/2025 11:05 AM CDT Pulse 97 04/28/2025 11:05 AM CDT Temperature 36.4 C (97.6 F) 08/10/2024 9:53 AM RADIO PRESENTER Respiratory Rate 16 04/28/2025 11:05 AM CDT [...] Cologuard 1994 Immunochemical Fecal Occult Blood 1994 Medicare Initial AWV [id number] 08/31/2015 Pneumococcal Immunization (50+ years) (2 of 2 - PCV) 11/23/2015 11/22/2014, 11/22/2014 Respiratory Syncytial Virus (RSV) Immunization (Adult) (1 - 1-dose 75+ series) 2024 Influenza Immunization (#1) 2025 10/0 02/2024, 08/25/2023, 06/27/2022, Additional history exists SARS-COV-2 Immunization ( season) 2025 06/06/2024, 08/25/2023, 06/27/2022, Additional history [...] RES,US,NON-IMAGING (04/28/2025 11:15 AM CDT) Narrative FuentesElidia - 04/28/2025 11:15 AM CDT FuentesElidia 04/28/2025 10:28 PM POCT Bladder Scan collected per standing order of Dr. Meneses on 04/28/2025 PVR= 18 ML Kami Gleason MD [place] - SURGERY Final Result * COLONOSCOPY (05/24/2020) us Brent Dickinson DO PROCEDURE/MINOR SURGICAL ORDERA BLES Final Result from Last 3 Months or Most Recently Relevant to Health Maintenance Insurance MEDICARE [facility] Care Teams Linen Room Houseperson Relationship Specialty Start Date End Date Fuentes Orellana MD [address] [place] [address] PCP - General Family Medicine 07/06/15 Brent Dickinson DO [address] [address] Gastroenterology 06/27/16 Faviola Jiménez, HAT FINISHING MATERIALS PREPARER, SIGN CARPENTER [address] [address] Nurse Practitioner Advanced Practice Nurse 07/22/16 Shawnee Mckinney MD [address]60 [facility] [address] [place] [address] Urologist Urology 06/07/19 Chicho Clayton MD [address]21 [facility] 7 [place] [address] Oncology 06/13/19 Lai Lambert APRN, SIGN CARPENTER [address] [place] [address] Nurse Practitioner Advanced Practice Nurse 02/10/23 Kami Meneses MD [address] [facility] [address] [address] Consulting Physician Urology 06/16/23 Anette Bond MD [address] [place] [address] Consulting Physician Gastroenterology 12/25/22 Kay Gordon APRN, SIGN CARPENTER [address] [place] [address] Nurse Practitioner Advanced Practice Nurse 06/16/24 Kami Meneses MD [address] [address] Consulting Physician Urology 08/19/24 Kami Meneses MD [address] [address] Consulting Physician Urology 01/06/25 Kami Meneses MD [address] [address] Consulting Physician Urology 03/08/25
--- OUTSIDE RECORDS SUMMARY | 2025-07-06 19:27 | XMS_ITS | Encounter Summary ---
Author Organization [facility] Healthcare Address [address] [place] [address] Care Team Providers Care Window Shade Ring Sewer Name Role Phone Fuentes Orellana MD Primary Care Provider [phone] Itz Iyer MD Unavailable [phone] Shawnee Mckinney MD Unavailable [phone] Chicho Clayton MD Unavailable Maria Guadalupe Palacios RN Unavailable Unava ilable Lupillo Davenport MD Unavailable [phone] Danis Meza FIREWORKS ASSEMBLY SUPERVISOR Unavailable [phone] Antonette Owens NP Unavailable Aniceto Foley MD Unavailable [phone] Reason for Referral * MRI/CAT/PET Scan (Routine) - Authorized Specialty Diagnoses / Procedures Referred By Contac t Referred To Contact Radiology Diagnoses Pelvic pain Procedures [place] [address] [place] [address] Phone: tel: fax: [address] [address] Referral ID Status Reason Start Date Expiration Date V isits Requested Visits Authorized [id number] Authorized 06/23/2025 07/23/2026 1 1 * Diagnostic Imaging (Routine) - Closed Specialty Diagnoses / Procedures Referred By Luis Felipe huerta Referred To Contact Radiology Diagnoses Microscopic hematuria Procedures CT ABDOMEN [place] [address] [place] [address] Phone: tel: fax: [address] [address] Referral ID Status Reason Start Date Expiration Date Visits Re quested Visits Authorized [id number] Closed 06/23/2025 07/23/2026 1 1 Encounter Details Date Type Department Care Team (Late st Contact Info) Description 06/23/2025 Community Orders [facility] [place] [address] [place] [address] Microscopic hematuria (Primary Dx); Pelvic pain Social History Tobacco Use Types Packs/Day Years Used Date Smoking Tobacco: Former Cigarettes 1.5 19 1 966 - 1984 Passive Smoke Exposure: Past Smokeless Tobacco: Never Alcohol Use Standard Drinks/Week Comments Yes 4 (1 standard drink = 0.6 oz pur e alcohol) [facility] Utilities Answer Date Recorded In the past 12 months has e electric, gas, oil, or water [employer] threatened to shut off services in your [...] often do you attend chur ch or mandaen services? More than 4 times per year 11/11/2024 Do you belong to any clubs o r organizations such as uatsdin groups, unions, fraternal or athletic groups, or [...] money to buy more. Never true 11/12/19 Within the past 12 months, t he [...] the past 12 m [facility], were you homeless or living in a fci (including now)? No 11/11/2024 AUDIT-C Answer Date [...] on file Legal Sex Male 12:32 AM COLORING CHECKER Gender Identity Not on file Sexual Orientation Choose not to disclose 2018 8:58 AM CDT Occupation Industry Job 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 Date retired Not on file Not on file Not on file documented as of this encounter Plan of Treatment Scheduled Orders Name Type Priority Associated Diagnoses Orde r Schedule MRI PELVIS W CONTRAST Imaging Schedule Routine, Read Routine (OP Routine) Pelvic pain Expected: 06/23/2025, Expires: 06/23/2026 documented as of this encounter Results * CT ABDOMEN PELVIS W WO [...] place. Electronically signed by: Alfonso Martinez M.D. [facility] Thomas Meneses MD [facility] PROCEDURES Final Result documented in this encounter Visit Diagnoses Diagnosis Microscopic hematuria- Primary Pelvic pain Microscopic hematuria documented in this encounter Care Teams Window Shade Ring Sewer Relationship Specialty Start Date End Date Fuentes Orellana MD PCP - General 11/28/16 Itz Iyer MD [address] [place] [address] Consulting Physician Urology 05/31/18 Shawnee Mckinney MD [address] [place] [address] Referring Physician Urology 06/03/18 Chicho Clayton MD [address] [place] [address] Medical Oncologist/Hematologis t Medical Oncology 06/07/18 Maria Guadalupe Palacios, RN Registered Nurse 06/10/18 Lupillo Davenport MD Referring Physician Radiation Oncology 06/16/18 Danis Meza NP [address] [place] [address] Nurse Practitioner Urology 10/06/22 Antonette Owens NP [address] [place] [address] Nurse Practitioner Cardiovascular Disease 10/06/22 Aniceto Foley MD [address] [place] [address] Surgeon Vascular Surgery 10/31/22 documented as of this encounter
--- OUTSIDE RECORDS SUMMARY | 2025-07-06 19:27 | XMS_ITS | Clinical Summary ---
Author Organization [facility] Address [address] [place] [address] Phone Care Team Providers Care Medical Record Specialist Name Role Phone Fuentes Orellana MD [...] 2025 06/15/2018 Medical Devices Implanted Type Area Website Programmer Device Identifier Shelf Expiration Date Model / Serial / Lot Ams 800 Urinary Control System(Penile Implant) Description:MRI conditional for 3T or less -danisha 01/04/19 Insurance MEDICARE PART A AND B [facility] [id number] Care Teams Medical Record Specialist Relationship Specialty Start Date End Date Fuentes Orellana MD [address] [place] [id number] PCP - General Family Practice 01/04/19
--- OUTSIDE RECORDS SUMMARY | 2025-07-06 19:27 | XMS_ITS | Encounter Summary ---
Author Organization [facility] Address [address] [place] [address] Phone Care Team Providers Care Endodontic Assistant Name Role Phone Fuentes Orellana MD Primary Care Provider Brent Dickinson DO Unavailable [phone] Faviola Jiménez WIRE SPINNER, RADAR ENGINEERING TEACHER Unavailable Shawnee Mckinney MD Unavailable Chicho Clayton MD Unavailable Lai Lambert WIRE SPINNER, RADAR ENGINEERING TEACHER Unavailable [phone] Kami Meneses MD Unavailable [phone] Anette Bond MD Unavailable [phone] Kay Gordon WIRE SPINNER, RADAR ENGINEERING TEACHER Unavailable Kami Meneses MD Unavailable [phone] Kami Meneses MD Unavailable [phone] Kami Meneses MD Unavailable [phone] Reason for Visit * Reason Comments Medication Refill Encounter Details Date Type Department Care Team (Late st Contact Info) Description 03/25/2021 Refill [facility] - Gastroenterology - [place] [address] [place] [address] Ingrid Mccloud Ashley, PAC [address] [place] [address] Medication Refill Social History Tobacco Use Types [...] 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 Not on file Not on coyr e documented as of this encounter Miscellaneous [...] documented as of this encounter Care Teams Endodontic Assistant Relationship Specialty Start Date End Date Fuentes Orellana MD [address] [place] [address] PCP - General Family Medicine 07/06/15 Brent Dickinson DO [address] [place] [address] Gastroenterology 06/27/16 Faviola Jiménez APRN, RADAR ENGINEERING TEACHER [address] [place] [place] [address] Nurse Practitioner Advanced Practice Nurse 07/22/16 Shawnee Mckinney MD [address] [facility] [address] [place] [address] Urologist Urology 06/07/19 Chicho Clayton MD [address] [facility] [address] [place] [address] Oncology 06/13/19 Lai Lambert APRN, RADAR ENGINEERING TEACHER [address] [place] [address] Nurse Practitioner Advanced Practice Nurse 02/10/23 Kami Meneses MD #[address] [address] Consulting Physician Urology 06/16/23 Anette Bond MD [address] [place] [address] Consulting Physician Gastroenterology 12/25/22 Kay Gordon APRN, RADAR ENGINEERING TEACHER [address] [place] [address] Nurse Practitioner Advanced Practice Nurse 06/16/24 Kami Meneses MD [address], [facility] [address] [place] [address] Consulting Physician Urology 08/19/24 Kami Meneses MD #[address] [facility] [address] [place] [address] Consulting Physician Urology 01/06/25 Kami Meneses MD #[address], [facility] [address] [place] [address] Consulting Physician Urology 03/08/25 documented as of this encounter
--- OUTSIDE RECORDS SUMMARY | 2025-07-06 19:27 | XMS_ITS | Encounter Summary ---
Author Organization [facility] Address [address] [place] [address] Phone Care Team Providers Care Maid Supervisor Name Role Phone Fuentes Orellana MD Primary Care Provider Brent Dickinson DO Unavailable [phone] Faviola Jiménez TAPE FOLDING MACHINE OPERATOR, FORGE OPERATOR HELPER Unavailable Shawnee Mckinney MD Unavailable Chicho Clayton MD Unavailable Lai Lambert TAPE FOLDING MACHINE OPERATOR, FORGE OPERATOR HELPER Unavailable [phone] Kami Meneses MD Unavailable [phone] Anette Bond MD Unavailable [phone] Kay Gordon TAPE FOLDING MACHINE OPERATOR, FORGE OPERATOR HELPER Unavailable Kami Meneses MD Unavailable [phone] Kami Meneses MD Unavailable [phone] Kami Meneses MD Unavailable [phone] Reason for Visit * Reason Comments Medication Refill Encounter Details Date Type Department Care Team (Late st Contact Info) Description 10/15/2021 Refill [facility] - Gastroenterology [facility] [address] [place] [address] Ingrid Mccloud Ashley, PAC [address] [place] [address] Medication Refill Social History Tobacco Use Types [...] 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 OPERATOR documented in this encounter Plan of Treatment Not on file documented as of this encounter Visit Diagnoses Not on filedocumented in this encounter Care Teams Maid Supervisor Relationship Specialty Start Date End Date Fuentes Orellana MD [address] [address] PCP - General Family Medicine 07/06/15 Brent Dickinson DO [address] [address] Gastroenterology 06/27/16 Faviola Jiménez, TAPE FOLDING MACHINE OPERATOR, FORGE OPERATOR HELPER [address] [address] Nurse Practitioner Advanced Practice Nurse 07/22/16 Shawnee Mckinney MD [address] [place] [address] Urologist Urology 06/07/19 Chicho Clayton MD [address] [facility] [address] [place] [address] Oncology 06/13/19 Lai Lambert APRN, FORGE OPERATOR HELPER [address] [place] [address] Nurse Practitioner Advanced Practice Nurse 02/10/23 Kami Meneses MD #[address] [address] Consulting Physician Urology 06/16/23 Anette Bond MD [address] [place] [address] Consulting Physician Gastroenterology 12/25/22 Kay Gordon APRN, FORGE OPERATOR HELPER [address] [place] [address] Nurse Practitioner Advanced Practice Nurse 06/16/24 Kami Meneses MD #[address] [address] Consulting Physician Urology 08/19/24 Kami Men[facility]es MD [facility] [address] [address] Consulting Physician Urology 01/06/25 Kami Meneses MD #[address] [address] Consulting Physician Urology 03/08/25 documented as of this encounter
--- OUTSIDE RECORDS SUMMARY | 2025-07-06 19:27 | XMS_ITS | Encounter Summary ---
Author Organization [facility] Address [address] [place] [address] Phone Care Team Providers Care Clearance Cutter Name Role Phone Fuentes Orellana MD Primary Care Provider [phone] Itz Iyer MD Unavailable [phone] Lupillo Davenport MD Unavailable [phone] Lupillo Davenport MD Unavailable [phone] Shawnee Mckinney MD Unavailable [phone] Chicho Clayton MD Unavailable Newton Weeks MD Unavailable Maria Guadalupe Palacios RN Unavailable Unava ilable Lupillo Davenport MD Unavailable [phone] Itz Iyer MD Unavailable [phone] Itz Iyer MD Unavailable [phone] Itz Iyer MD Unavailable [phone] Izt Iyer MD Unavailable [phone] Itz Iyer MD Unavailable [phone] Itz Iyer MD Unavailable [phone] Danis Meza BRAND AMBASSADORS PROMOTIONAL SALES Unavailable Antonette Owens BRAND AMBASSADORS PROMOTIONAL SALES Unavailable Aniceto Foley MD Unavailable [phone] Encounter Details Date Type Department Care [...] on file 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 Gender Identity Not on file Sexual Orientation [...] on filedocumented in this encounter Care Teams Clearance Cutter Relationship Specialty Start Date End Date Fuentes Orellana MD PCP - General 11/28/16 Itz Iyer MD [address] [facility] [address] [place] [address] Consulting Physician Urology 05/31/18 Lupillo Davenport MD [address] [place] [address] Referring Physician Radiation Oncology 05/31/18 Lupillo Davenport MD [address] [place] [address] Referring Physician Radiation Oncology 05/31/18 Shawnee Mckinney MD [address] [facility] [address] [place] [address] Referring Physician Urology 06/03/18 Chicho Clayton MD [address] [facility] [address] [place] [address] Medical Oncologist/Hematologis t Medical Oncology 06/07/18 Newton Weeks MD [address] [facility] [address] [place] [address] Referring Physician Radiation Oncology 06/07/18 Maria Guadalupe Palacios, RN Registered Nurse 06/10/18 Lupillo Davenport MD [address] [place] [address] [place] [address] Referring Physician Radiation Oncology 06/16/18 Itz Iyer MD [address] [place] [address] Consulting Physician Urology 06/17/18 06/17/18 Itz Iyer MD [address] [address] Consulting Physician Urology 06/18/18 06/18/18 Itz Iyer MD [address] [address] Consulting Physician Urology 06/18/18 06/18/18 Itz Iyer MD [address] [place] [address] Consulting Physician Urology 06/22/18 06/22/18 Itz Iyer MD [address] [place] [address] Consulting Physician Urology 07/01/18 07/01/18 Itz Iyer MD [address] [place] [address] Consulting Physician Urology 07/06/18 07/06/18 Danis Meza NP [address] [place] [address] Nurse Practitioner Urology 10/06/22 Antonette Owens NP [address] [place] [address] Nurse Practitioner Cardiovascular Disease 10/06/22 Aniceto Foley MD [address] [place] [address] Surgeon Vascular Surgery 10/31/22 documented as of this encounter
--- OUTSIDE RECORDS SUMMARY | 2025-07-06 19:27 | XMS_ITS | Encounter Summary ---
Author Organization [facility] Healthcare Address [address] [place] [address] Care Team Providers Care Manager Legal Name Role Phone Fuentes Orellana MD Primary Care Provider [phone] Itz Iyer MD Unavailable [phone] Shawnee Mckinney MD Unavailable [phone] Chicho Clayton MD Unavailable Maria Guadalupe Palacios RN Unavailable Unava ilable Lupillo Davenport MD Unavailable [phone] Danis Meza ROUTING EQUIPMENT TENDER Unavailable [phone] Antonette Owens NP Unavailable Ancieto Foley MD Unavailable [phone] Encounter Details Date Type Department Care Team (Late st Contact Info) Description 07/24/2024 Orders Only [facility] Information Management [address] [place] [address] Scanning, Provider Social History Tobacco Use Types [...] on file 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 [address] [place] [address] Referring Physician Urology 06/03/18 Chicho Clayton MD [address] [facility] [address] [place] [address] Medical Oncologist/Hematologis t Medical Oncology 06/07/18 Maria Guadalupe Palacios RN Registered Nurse 06/10/18 Lupillo Davenport MD Referring Physician Radiation Oncology 06/16/18 Danis Meza NP [address] [facility] [address] [place] [address] Nurse Practitioner Urology 10/06/22 Antonette Owens NP [address] [facility] [address] [place] [address] Nurse Practitioner Cardiovascular Disease 10/06/22 Aniceto Foley MD [address] [place] [address] Surgeon Vascular Surgery 10/31/22 documented as of this encounter
== END 2025-07-06 12:02 | disposition home or self-care (01) ==
PROVIDERS: PCP Family Medicine; Visit Provider Physician Assistant Medical
DX: R05.3 Chronic cough (principal); I50.9 Heart failure, unspecified
CPT/HCPCS: 71046

== ENCOUNTER 2025-07-07 11:13 | Outpatient (CLI) | payer MEDICARE, SELFPAY ==
--- OUTSIDE RECORDS SUMMARY | 2025-07-07 11:52 | XMS_ITS | Clinical Summary ---
Author Organization [facility] Address [address] [place] [address] Care Team Providers Care Commercial Art Instructor Name Role Phone Fuentes Orellana MD Primary Care Provider [phone] Allergies No known active allergies Medications amLODIPine [...] complete this topic Insurance MEDICARE [facility] Care Teams Commercial Art Instructor Relationship Specialty Start Date End Date Fuentes Orellana MD [address] [place] [address] PCP - General FAMILY PRACTICE 11/29/22
--- OUTSIDE RECORDS SUMMARY | 2025-07-07 11:52 | XMS_ITS | Encounter Summary ---
Author Organization [facility] Healthcare Address [address] [place] [address] Care Team Providers Care Food Preservation Scientist Name Role Phone Fuentes Orellana MD Primary Care Provider [phone] Itz Iyer MD Unavailable [phone] Shawnee Mckinney MD Unavailable [phone] Chicho Clayton MD Unavailable Maria Guadalupe Palacios RN Unavailable Unava ilable Lupillo Davenport MD Unavailable [phone] Danis Meza GLOVE TURNER Unavailable [phone] Antonette Owens NP Unavailable Aniceto Foley MD Unavailable [phone] Encounter Details Date Type Department Care Team (Late st Contact Info) Description 07/11/2024 Orders Only [facility] [place] Management [address] [place] [address] Scanning, Provider Social History Tobacco Use Types [...] on file 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 Gender Identity Not on file Sexual [...] on filedocumented in this encounter Care Teams Food Preservation Scientist Relationship Specialty Start Date End Date Fuentes Orellana MD PCP - General 11/28/16 Itz Iyer MD [address] [place] [address] Consulting Physician Urology 05/31/18 Shawnee Mckinney MD [address]60 [facility] [address] [place] [address] Referring Physician Urology 06/03/18 Chicho Clayton MD [address] [facility] [address] [place] [address] Medical Oncologist/Hematologis t Medical Oncology 06/07/18 Maria Guadalupe Palacios, RN Registered Nurse 06/10/18 Lupillo Davenport MD Referring Physician Radiation Oncology 06/16/18 Danis Meza NP [address] [facility] [address] [place] [address] Nurse Practitioner Urology 10/06/22 Antonette Owens NP [address] [facility] [address] [place] [address] Nurse Practitioner Cardiovascular Disease 10/06/22 Aniceto Foley MD [address] [place] [address] Surgeon Vascular Surgery 10/31/22 documented as of this encounter
--- OUTSIDE RECORDS SUMMARY | 2025-07-07 11:52 | XMS_ITS | Encounter Summary ---
Author Organization [facility] Address [address] [place] [address] Phone Care Team Providers Care Live Hanger Name Role Phone Fuentes Orellana MD Primary Care Provider Brent Dickinson DO Unavailable [phone] Faviola Jiménez HEAD BUYER TOBACCO, DRYWALL SPRAYER Unavailable Shawnee Mckinney MD Unavailable Chicho Clayton MD Unavailable Lai Lambert HEAD BUYER TOBACCO, DRYWALL SPRAYER Unavailable [phone] Kami Meneses MD Unavailable [phone] Anette Bond MD Unavailable [phone] Kay Gordon HEAD BUYER TOBACCO, DRYWALL SPRAYER Unavailable Kami Meneses MD Unavailable [phone] Kami Meneses MD Unavailable [phone] Kami Meneses MD Unavailable [phone] Encounter Details Date Type Department Care Team (Late st Contact Info) Description 08/22/2024 [facility]phone [facility] [address] [place] [address] Kami Meneses MD [address] [place] [address] Social History Tobacco Use Types Packs/Day Years [...] 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 WORKER * Telephone Encounter - Elidia Dill - 08/29/2024 8:20 AM CST Please see Dr. Otto message. WORKER * Telephone Encounter - Kami Meneses [...] sphincter. This needs to be done at [facility] by tx. He will need a urine culture 14 days prior to surgery. Hibiclens shower the night before morning of surgery, vancomycin and gentamicin for antibiotics WORKER WORKER documented in this encounter Plan of Treatment Not on file documented as of this encounter Visit Diagnoses Not on filedocumented in this encounter Care Teams Live Hanger Relationship Specialty Start Date End Date Feuntes Orellana MD [address] [place] [address] PCP - General Family Medicine 07/06/15 Brent Dickinson DO [address] [facility] [place] [address] Gastroenterology 06/27/16 Faviola Jiménez APRN, DRYWALL SPRAYER [address] [facility] [place] [address] Nurse Practitioner Advanced Practice Nurse 07/22/16 Shawnee Mckinney MD [address] [facility] [address] [place] [address] Urologist Urology 06/07/19 Chicho Clayton MD [address] [facility] [address] [place] [address] Oncology 06/13/19 Lai Lambert APRN, DRYWALL SPRAYER [address] [place] [address] Nurse Practitioner Advanced Practice Nurse 02/10/23 Kami Meneses MD [address] [address] Consulting Physician Urology 06/16/23 Anette Bond MD [address] [place] [address] Consulting Physician Gastroenterology 12/25/22 Kay Gordon APRN, DRYWALL SPRAYER [address] [place] [address] Nurse Practitioner Advanced Practice Nurse 06/16/24 Kami Meneses MD [address] [address] Consulting Physician Urology 08/19/24 Kami Meneses MD [address] [address] Consulting Physician Urology 01/06/25 Kami Meneses MD [address] [address] Consulting Physician Urology 03/08/25 documented as of this encounter
--- OUTSIDE RECORDS SUMMARY | 2025-07-07 11:52 | XMS_ITS | Encounter Summary ---
Author Organization [facility] Address [address] [place] [address] Phone Care Team Providers Care Learn To Swim Instructor Name Role Phone Fuentes Orellana MD Primary Care Provider + [phone] Itz Iyer MD Unavailable [phone] Shawnee Mckinney MD Unavailable [phone] Chicho Clayton MD Unavailable Maria Guadalupe Palacios RN Unavailable Unava ilable Lupillo Davenport MD Unavailable [phone] Danis Meza FUEL EFFICIENT AUTOMOBILE DESIGNER Unavailable Antonette Owens NP Unavailable Aniceto Foley MD Unavailable [phone] Encounter Details Date Type Department Care [...] on file 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 Gender Identity Not on file [...] on filedocumented in this encounter Care Teams Learn To Swim Instructor Relationship Specialty Start Date End Date Fuentes Orellana MD PCP - General 11/28/16 Itz Iyer MD [address] [place] [address] Consulting Physician Urology 05/31/18 Shawnee Mckinney MD [address] [facility] [address] [place] [address] Referring Physician Urology 06/03/18 Chicho Clayton MD [address] [place] [address] Medical Oncologist/Hematologis t Medical Oncology 06/07/18 Maria Guadalupe Palacios, RN Registered Nurse 06/10/18 Lupillo Davenport MD Referring Physician Radiation Oncology 06/16/18 Danis Meza NP [address] [place] [address] Nurse Practitioner Urology 10/06/22 Antonette Owens NP [address] [place] [address] Nurse Practitioner Cardiovascular Disease 10/06/22 Aniceto Foley MD [address] [place] [address] Surgeon Vascular Surgery 10/31/22 documented as of this encounter
--- OUTSIDE RECORDS SUMMARY | 2025-07-07 11:52 | XMS_ITS | Encounter Summary ---
Author Organization [facility] Address [address] [place] [address] Phone Care Team Providers Care Donor Technician Name Role Phone Fuentes Orellana MD Primary Care Provider Brent Dickinson DO Unavailable [phone] Faviola Jiménez ORCHARDIST, THERMAL ENGINEER Unavailable Shawnee Mckinney MD Unavailable Chicho Clayton MD Unavailable Lai Lambert ORCHARDIST, THERMAL ENGINEER Unavailable [phone] Kami Meneses MD Unavailable [phone] Anette Bond MD Unavailable [phone] Kay Gordon ORCHARDIST, THERMAL ENGINEER Unavailable Kami Meneses MD Unavailable [phone] Kami Meneses MD Unavailable [phone] Kami Meneses MD Unavailable Reason for Visit * Reason Comments Medication Refill Encounter Details Date Type Department Care Team (Late st Contact Info) Description 11/12/2022 Refill [facility] - [place] [address] [place] [address] Ingrid Mccloud Ashley, PAC [address] [place] [address] Medication Refill Social History Tobacco Use Types [...] 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 [address] [place] [address] Urologist Urology 06/07/19 Chicho Clayton MD [address] [facility] 7 [place] [address] Oncology 06/13/19 Lai Lambert APRN, THERMAL ENGINEER [address] [place] [address] Nurse Practitioner Advanced Practice Nurse 02/10/23 Kami Meneses MD #[address] [address] Consulting Physician Urology 06/16/23 Anette Bond MD #2 [place] [address] Consulting Physician Gastroenterology 12/25/22 Kay Gordon APRN, THERMAL ENGINEER #2 [place] [address] Nurse Practitioner Advanced Practice Nurse 06/16/24 Kami Meneses MD [address], [facility] [address] [place] [address] Consulting Physician Urology 08/19/24 Kami Meneses MD [address], [facility] [address] [place] [address] Consulting Physician Urology 01/06/25 Kami Meneses MD [address], [facility] [address] [place] [address] Consulting Physician Urology 03/08/25 documented as of this encounter
--- OUTSIDE RECORDS SUMMARY | 2025-07-07 11:52 | XMS_ITS | Encounter Summary ---
Author Organization [facility] Address [address] [place] [address] Care Team Providers Care Water Jet Operator Name Role Phone Fuentes Orellana MD Primary Care Provider + [phone] Itz Iyer MD Unavailable [phone] Lupillo Davenport MD Unavailable [phone] Lupillo Davenport MD Unavailable [phone] Shawnee Mckinney MD Unavailable [phone] Chicho Clayton MD Unavailable Newton Weeks MD Unavailable [phone] Maria Guadalupe Palacios RN Unavailable Unava ilable Lupillo Davenport MD Unavailable [phone] Itz Iyer MD Unavailable +[phone] Itz Iyer MD Unavailable +[phone] Itz Iyer MD Unavailable +[phone] Itz Iyer MD Unavailable +[phone] Itz Iyer MD Unavailable [phone] Itz Iyer MD Unavailable [phone] Danis Meza NP Unavailable [phone] Antonette Owens NP Unavailable Aniceto Foley MD Unavailable Encounter Details Date Type Department Care Team (Late st Contact Info) Description 03/30/2018 Orders Only [facility] Health Information Management [address] [place] [address] Scanning, Provider Social History Tobacco Use Types Packs/Day Years Used Date Smoking Tobacco: Never Smokeless Tobacco: Never Alcohol Use Standard Drinks/Week Comments Yes 0 (1 standard drink = 0.6 oz pur e alcohol) Sex and Gender Information Value Date Recorded Sex Assigned at Not on file 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 Gender Identity Not on file Sexual Orientation [...] on filedocumented in this encounter Care Teams Water Jet Operator Relationship Specialty Start Date End Date Fuentes Orellana MD PCP - General 11/28/16 Itz Iyer MD [address] [facility] [address] [facility] [address] [place] [address] Consulting Physician Urology 05/31/18 Lupillo Davenport MD [address] [place] [address] Referring Physician Radiation Oncology 05/31/18 Lupillo Davenport MD [address] [place] [address] Referring Physician Radiation Oncology 05/31/18 Shawnee Mckinney MD [address] [facility] [address] [place] [address] Referring Physician Urology 06/03/18 Chicho Clayton MD [address] [facility] [address] [place] [address] Medical Oncologist/Hematologis t Medical Oncology 06/07/18 Newton Weeks MD [address] [facility] [address] [place] [address] Referring Physician Radiation Oncology 06/07/18 Maria Guadalupe Palacios RN Registered Nurse 06/10/18 Lupillo Davenport MD [address] [place] [address] [place] [address] Referring Physician Radiation Oncology 06/16/18 Itz Iyer MD [address] [address] Consulting Physician Urology 06/17/18 06/17/18 Itz Iyer MD [address] [place] [address] Consulting Physician Urology 06/18/18 06/18/18 Itz Iyer MD [address] [address] Consulting Physician Urology 06/18/18 06/18/18 Itz Iyer MD [address] [address] Consulting Physician Urology 06/22/18 06/22/18 Itz Iyer MD [address] [place] [address] Consulting Physician Urology 07/01/18 07/01/18 Itz Iyer MD [address] [place] [address] Consulting Physician Urology 07/06/18 07/06/18 Danis Meza NP [address] [place] [address] Nurse Practitioner Urology 10/06/22 Antonette Owens NP [address] [place] [address] Nurse Practitioner Cardiovascular Disease 10/06/22 Aniceto Foley MD [address] [place] [address] Surgeon Vascular Surgery 10/31/22 documented as of this encounter
--- OUTSIDE RECORDS SUMMARY | 2025-07-07 11:52 | XMS_ITS | Encounter Summary ---
Author Organization [facility] Address [address] [facility] [address] [place] [address] Care Team Providers Care Inspector Golf Ball Name Role Phone Fuentes Orellana MD Primary Care Provider + [phone] Fuentes Orellana MD Primary Care Provider + [phone] Itz Iyer MD Unavailable [phone] Lupillo Davenport MD Unavailable [phone] Lupillo Davenport MD Unavailable [phone] Shawnee Mckinney MD Unavailable [phone] Chicho Clayton MD Unavailable Newton Weeks MD Unavailable [phone] Maria Guadalupe Palacios RN Unavailable Unava ilable Lupillo Davenport MD Unavailable [phone] Itz Iyer MD Unavailable [phone] Itz Iyer MD Unavailable [phone] Itz Iyer MD Unavailable [phone] Itz Iyer MD Unavailable [phone] Itz Iyer MD Unavailable [phone] Itz Iyer MD Unavailable [phone] Danis Meza ELECTRIC WELDER HELPER Unavailable [phone] Rater, Antonette ELECTRIC WELDER HELPER Unavailable Aniceto Foley MD Unavailable [phone] Encounter Details Date Type Department Care Team (Late st Contact Info) Description 11/18/2016 Orders Only [facility] Provider, MD Katie [place] [address] Social History Tobacco Use Types Packs/Day Years Used Date Smoking Tobacco: Never Assessed Sex and Gender Information Value Date Recorded Sex Assigned at Not on file 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 Gender Identity Not on file Sexual Orientation [...] on filedocumented in this encounter Care Teams Inspector Golf Ball Relationship Specialty Start Date End Date Fuentse Orellana MD PCP - General 11/28/16 Fuentes Orellana MD PCP - General 07/14/07 11/27/16 Itz Iyer MD [address] [facility] [address] [place] [address] Consulting Physician Urology 05/31/18 Lupillo Davenport MD [address] [place] [address] Referring Physician Radiation Oncology 05/31/18 Lupillo Davenport MD [address] [place] [address] Referring Physician Radiation Oncology 05/31/18 Shawnee Mckinney MD [address] [facility] [address] [place] [address] Referring Physician Urology 06/03/18 Chicho Clayton MD [address] [facility] [address] [place] [address] Medical Oncologist/Hematologis t Medical Oncology 06/07/18 Newton Weeks MD [address] [facility] [address] [place] [address] Referring Physician Radiation Oncology 06/07/18 Maria Guadalupe Palacios, RN Registered Nurse 06/10/18 Lupillo Davenport MD [address] [place] [address] Referring Physician Radiation Oncology 06/16/18 Itz Iyer MD [address] [address] Consulting Physician Urology 06/17/18 06/17/18 Itz Iyer MD [address] [address] Consulting Physician Urology 06/18/18 06/18/18 Itz Iyer MD [address] [place] [address] Consulting Physician Urology 06/18/18 06/18/18 Itz Iyer MD [address] [place] [address] Consulting Physician Urology 06/22/18 06/22/18 Itz Iyer MD [address] [place] [address] Consulting Physician Urology 07/01/18 07/01/18 Itz Iyer MD [address] [place] [address] Consulting Physician Urology 07/06/18 07/06/18 Danis Meza NP [address] [place] [address] Nurse Practitioner Urology 10/06/22 Antonette Owens NP [address] [place] [address] Nurse Practitioner Cardiovascular Disease 10/06/22 Aniceto Foley MD [address] [place] [address] Surgeon Vascular Surgery 10/31/22 documented as of this encounter
--- OUTSIDE RECORDS SUMMARY | 2025-07-07 11:52 | XMS_ITS | Encounter Summary ---
Author Organization [facility] Address [address] [place] [address] Phone Care Team Providers Care Senior C Software Developer Name Role Phone Fuentes Orellana MD Primary Care Provider [phone] Itz Iyer MD Unavailable [phone] Lupillo Davenport MD Unavailable [phone] Lupillo Davenport MD Unavailable [phone] Shawnee Mckinney MD Unavailable [phone] Chicho Clayton MD Unavailable Newton Weeks MD Unavailable Maria Guadalupe Palacios RN Unavailable Unava ilable Lupillo Davenport MD Unavailable [phone] Itz Iyer MD Unavailable [phone] Itz Iyer MD Unavailable [phone] Itz Iyer MD Unavailable [phone] Itz Iyer MD Unavailable [phone] Itz Iyer MD Unavailable [phone] Itz Iyer MD Unavailable [phone] Danis Meza LEAD PHP DEVELOPER Unavailable [phone] Antonette Owens LEAD PHP DEVELOPER Unavailable Aniceto Foley MD Unavailable [phone] Encounter Details Date Type Department Care [...] on file 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 Gender Identity Not on file Sexual Orientation [...] filedocumented in this encounter Care Teams Senior C Software Developer Relationship Specialty Start Date End Date Fuentes Orellana MD PCP - General 11/28/16 Itz Iyer MD [address] [facility] [address] [place] [address] Consulting Physician Urology 05/31/18 Lupillo Davenport MD [address] [place] [address] Referring Physician Radiation Oncology 05/31/18 Lupillo Davenport MD [address] [place] [address] Referring Physician Radiation Oncology 05/31/18 Shawnee Mckinney MD [address] [facility] [address] [place] [address] Referring Physician Urology 06/03/18 Chicho Clayton MD [address] [facility] [address] [place] [address] Medical Oncologist/Hematologis t Medical Oncology 06/07/18 Newton Weeks MD [address] [facility] [address] [place] [address] Referring Physician Radiation Oncology 06/07/18 Maria Guadalupe Palacios, RN Registered Nurse 06/10/18 Lupillo Davenport MD [address] [place] [address] [place] [address] Referring Physician Radiation Oncology 06/16/18 Itz Iyer MD [address] [place] [address] Consulting Physician Urology 06/17/18 06/17/18 Itz Iyer MD [address] [address] Consulting Physician Urology 06/18/18 06/18/18 Itz Iyer MD [address] [address] Consulting Physician Urology 06/18/18 06/18/18 Itz Iyer MD [address] [place] [address] Consulting Physician Urology 06/22/18 06/22/18 Itz Iyer MD [address] [place] [address] Consulting Physician Urology 07/01/18 07/01/18 Itz Iyer MD [address] [place] [address] Consulting Physician Urology 07/06/18 07/06/18 Danis Meza NP [address] [place] [address] Nurse Practitioner Urology 10/06/22 Antonette Owens NP [address] [place] [address] Nurse Practitioner Cardiovascular Disease 10/06/22 Aniceto Foley MD [address] [place] [address] Surgeon Vascular Surgery 10/31/22 documented as of this encounter
--- OUTSIDE RECORDS SUMMARY | 2025-07-07 11:52 | XMS_ITS | Encounter Summary ---
Author Organization [facility] Address [address] [place] [address] Phone Care Team Providers Care Co Op Name Role Phone Fuentes Orellana MD Primary Care Provider [phone] Brent Dickinson DO Unavailable [phone] Faviola Jiménez GROCERY SACKER, CALF SKINNER Unavailable Shawnee Mckinney MD Unavailable Chicho Clayton MD Unavailable Lai Lambert GROCERY SACKER, CALF SKINNER Unavailable [phone] Kami Meneses MD Unavailable [phone] Anette Bond MD Unavailable [phone] Kay Gordon GROCERY SACKER, CALF SKINNER Unavailable Kami Meneses MD Unavailable [phone] Kami Meneses MD Unavailable [phone] Kami Meneses MD Unavailable [phone] Reason for Visit * Reason Comments Medication Refill Encounter Details Date Type Department Care Team (Late st Contact Info) Description 10/15/2021 Refill [facility] - Gastroenterology [facility] [address] [place] [address] Ingrid Mccloud Ashley, PAC [address] [place] [address] Medication Refill Social History Tobacco Use Types [...] Ashlie Barrios RN - 10/16/2021 11:37 AM COMMISSIONER CONSERVATION OF RESOURCES Medication refilled and signed per [facility] chronic medication standing order for pediatric and adult patients. ISSIONER CONSERVATION OF RESOURCES documented in this encounter Plan of Treatment Not on file documented as of this encounter Visit Diagnoses Not on filedocumented in this encounter Care Teams Co Op Relationship Specialty Start Date End Date Fuentes Orellana MD [address] [address] PCP - General Family Medicine 07/06/15 Brent Dickinson DO [address] [address] Gastroenterology 06/27/16 Faviola Jiménez, GROCERY SACKER, CALF SKINNER [address] [address] Nurse Practitioner Advanced Practice Nurse 07/22/16 Shawnee Mckinney MD [address] [facility] [address] [place] [address] Urologist Urology 06/07/19 Chicho Clayton MD [address] [facility] [address] [place] [address] Oncology 06/13/19 Lai Lambert APRN, CALF SKINNER [address] [place] [address] Nurse Practitioner Advanced Practice Nurse 02/10/23 Kami Meneses MD #[address] [address] Consulting Physician Urology 06/16/23 Anette Bond MD #2 [place] [address] Consulting Physician Gastroenterology 12/25/22 Kay Gordon APRN, CALF SKINNER #2 [place] [address] Nurse Practitioner Advanced Practice Nurse 06/16/24 Kami Meneses MD #[address] [address] Consulting Physician Urology 08/19/24 Kami Meneses MD [facility] [address] [address] Consulting Physician Urology 01/06/25 Kami Meneses MD #[address] [address] Consulting Physician Urology 03/08/25 documented as of this encounter
--- OUTSIDE RECORDS SUMMARY | 2025-07-07 11:52 | XMS_ITS | Encounter Summary ---
Author Organization [facility] Healthcare Address [address] [place] [address] Care Team Providers Care Utilization Supervisor Name Role Phone Fuentes Orellana MD Primary Care Provider + [phone] Itz Iyer MD Unavailable [phone] Shawnee Mckinney MD Unavailable [phone] Chicho Clayton MD Unavailable Maria Guadalupe Palacios RN Unavailable Unava ilable Lupillo Davenport MD Unavailable [phone] Danis Meza WALLPAPER EMBOSSER HELPER Unavailable [phone] Antonette Owens NP Unavailable Aniceto Foley MD Unavailable [phone] Encounter Details Date Type Department Care Team (Late st Contact Info) Description 07/24/2024 Orders Only [facility] Health Information Management [address] [place] [address] Scanning, Provider Social History Tobacco Use Types [...] on file 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 Gender Identity Not on file Sexual Orientation [...] on filedocumented in this encounter Care Teams Utilization Supervisor Relationship Specialty Start Date End Date Fuentes Orellana MD PCP - General 11/28/16 Itz Iyer MD [address] [address] Consulting Physician Urology 05/31/18 Shawnee Mckinney MD 4960 [facility] [address] [place] [address] Referring Physician Urology 06/03/18 Chicho Clayton MD 4921 [facility] [address] [place] [address] Medical Oncologist/Hematologis t Medical Oncology 06/07/18 Maria Guadalupe Palacios RN Registered Nurse 06/10/18 Lupillo Davenport MD Referring Physician Radiation Oncology 06/16/18 Danis Meza NP [address] [facility] [address] [place] [address] Nurse Practitioner Urology 10/06/22 Antonette Owens NP [address] [facility] [address] [place] [address] Nurse Practitioner Cardiovascular Disease 10/06/22 Aniceto Foley MD [address] [place] [address] Surgeon Vascular Surgery 10/31/22 documented as of this encounter
--- OUTSIDE RECORDS SUMMARY | 2025-07-07 11:52 | XMS_ITS | Encounter Summary ---
Author Organization [facility] Address [address] [place] [address] Phone Care Team Providers Care Student Accounts Manager Name Role Phone Fuentes Orellana MD Primary Care Provider [phone] Brent Dickinson DO Unavailable [phone] Faviola Jiménez LEGAL CASHIER, CUSTOMS BROKERAGE AGENT Unavailable Shawnee Mckinney MD Unavailable Chicho Clayton MD Unavailable Lai Lambert LEGAL CASHIER, CUSTOMS BROKERAGE AGENT Unavailable [phone] Kami Meneses MD Unavailable [phone] Anette Bond MD Unavailable [phone] Kay Gordon LEGAL CASHIER, CUSTOMS BROKERAGE AGENT Unavailable Kami Menesse MD Unavailable [phone] Kami Meneses MD Unavailable [phone] Kami Meneses MD Unavailable [phone] Encounter Details Date Type Department Care Team (Late st Contact Info) Description 12/16/2024 [facility]phone [facility] #[address] [place] [address] Kami Meneses MD #[address], [address] [place] [address] Social History Tobacco Use Types Packs/Day Years [...] 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 Chicho Clayton at [place] for prostate. * Telephone Encounter - Kami Meneses MD - 12/16/2024 11:45 AM CDT Can you ask the patient who follows him for his prostate cancer? documented in this encounter Plan of Treatment Not on file documented as of this encounter Visit Diagnoses Not on filedocumented in this encounter Care Teams Student Accounts Manager Relationship Specialty Start Date End Date Fuentes Orellana MD [address] [address] PCP - General Family Medicine 07/06/15 Brent Dickinson DO [address] [address] Gastroenterology 06/27/16 Faviola Jiménez APRN, CUSTOMS BROKERAGE AGENT [address] [address] Nurse Practitioner Advanced Practice Nurse 07/22/16 Shawnee Mckinney MD [address]60 [facility] [address] [place] [address] Urologist Urology 06/07/19 Chicho Clayton MD 4921 [facility] 7 [place] [address] Oncology 06/13/19 Lai Lambert APRN, CUSTOMS BROKERAGE AGENT #2 [place] [address] Nurse Practitioner Advanced Practice Nurse 02/10/23 Kami Meneses MD #[address] [address] Consulting Physician Urology 06/16/23 Anette Bond MD #2 [place] [address] Consulting Physician Gastroenterology 12/25/22 Kay Gordon APRN, CUSTOMS BROKERAGE AGENT #2 [place] [address] Nurse Practitioner Advanced Practice Nurse 06/16/24 Kami Meneses MD #[address] [address] Consulting Physician Urology 08/19/24 Kami Meneses MD #[address] [facility] [address] [place] [address] Consulting Physician Urology 01/06/25 Kami Meneses MD #[address] [facility] [address] [place] [address] Consulting Physician Urology 03/08/25 documented as of this encounter
--- OUTSIDE RECORDS SUMMARY | 2025-07-07 11:52 | XMS_ITS | Clinical Summary ---
Author Organization [facility] Address [address], [facility] [address] [place] [address] Phone Care Team Providers Care Automatic Mounter Name Role Phone Fuentes Orellana MD Primary Care Provider Brent Dickinson DO Unavailable [phone] Faviola Jiménez SCREENING REPRESENTATIVE, NEEDLE FELT MAKING MACHINE OPERATOR Unavailable Shawnee Mckinney MD Unavailable Chicho Clayton MD Unavailable Lai Lambert SCREENING REPRESENTATIVE, NEEDLE FELT MAKING MACHINE OPERATOR Unavailable [phone] Kami Meneses MD Unavailable [phone] Anette Bond MD Unavailable [phone] Kay Gordon APRN, NEEDLE FELT MAKING MACHINE OPERATOR Unavailable Kami Meneses MD Unavailable [phone] Kami Meneses MD Unavailable [phone] Kami Meneses MD Unavailable [phone] Allergies Active Allergy Reactions Criticality Noted [...] Description 04/28/2025 11:15 AM CDT Office Visit [facility] [address] [place] [address] Kami Meneses MD UTI symptoms [...] 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 on file Not on file Not on cory e Last Filed Vital Signs Vital Sign Reading Time Taken Comments Blood Pressure 135/71 04/28/2025 11:05 AM CDT Pulse 97 04/28/2025 11:05 AM CDT Temperature 36.4 C (97.6 F) 08/10/2024 9:53 AM EXTENSION EDGER Respiratory Rate 16 04/28/2025 11:05 AM CDT [...] 04/28/2025 PVR= 18 ML Kami Gleason MD [place] - SURGERY Final Result * COLONOSCOPY (05/24/2020) us Brent Dickinson DO PROCEDURE/MINOR SURGICAL ORDERA BLES Final Result from Last 3 Months or Most Recently Relevant to Health Maintenance Insurance MEDICARE [facility] Care Teams Automatic Mounter Relationship Specialty Start Date End Date Fuentes Orellana MD [address] [place] [address] PCP - General Family Medicine 07/06/15 Brent Dickinson DO [address] [address] Gastroenterology 06/27/16 Faviola Jiménez, SCREENING REPRESENTATIVE, NEEDLE FELT MAKING MACHINE OPERATOR [address] [address] Nurse Practitioner Advanced Practice Nurse 07/22/16 Shawnee Mckinney MD [address] [facility] [address] [place] [address] Urologist Urology 06/07/19 Chicho Clayton MD [address] [facility] [address] [place] [address] Oncology 06/13/19 Lai Lambert APRN, NEEDLE FELT MAKING MACHINE OPERATOR [address] [place] [address] Nurse Practitioner Advanced Practice Nurse 02/10/23 Kami Meneses MD [facility] [address] [address] Consulting Physician Urology 06/16/23 Anetet Bond MD [address] [place] [address] Consulting Physician Gastroenterology 12/25/22 Kay Gordon APRN, NEEDLE FELT MAKING MACHINE OPERATOR [address] [place] [address] Nurse Practitioner Advanced Practice Nurse 06/16/24 Kami Meneses MD [address] [address] Consulting Physician Urology 08/19/24 Kami Meneses MD [address] [address] Consulting Physician Urology 01/06/25 Kami Meneses MD [address] [address] Consulting Physician Urology 03/08/25
--- OUTSIDE RECORDS SUMMARY | 2025-07-07 11:52 | XMS_ITS | Encounter Summary ---
Author Organization [facility] Healthcare Address [address] [place] [address] Care Team Providers Care Spool Salvager Name Role Phone Fuentes Orellana MD Primary Care Provider + [phone] Itz Iyer MD Unavailable [phone] Lupillo Davenport MD Unavailable [phone] Lupillo Davenport MD Unavailable [phone] Shawnee Mckinney MD Unavailable [phone] Chicho Clayton MD Unavailable Newton Weeks MD Unavailable [phone] Maria Guadalupe Palacios RN Unavailable Unava ilable Lupillo Davenport MD Unavailable [phone] Itz Iyer MD Unavailable [phone] Itz Iyer MD Unavailable [phone] Itz Iyer MD Unavailable [phone] Itz Iyer MD Unavailable [phone] Itz Iyer MD Unavailable [phone] Itz Iyer MD Unavailable [phone] Danis Meza NP Unavailable [phone] Antonette Owens NP Unavailable Aniceto Foley MD Unavailable Encounter Details Date Type Department Care Team (Late st Contact Info) Description 03/16/2018 Orders Only [facility] Health Information Management [address] [place] [address] Scanning, Provider Social History Tobacco Use Types Packs/Day Years Used Date Smoking Tobacco: Never Smokeless Tobacco: Never Alcohol Use Standard Drinks/Week Comments Yes 0 (1 standard drink = 0.6 oz pur e alcohol) Sex and Gender Information Value Date Recorded Sex Assigned at Not on file Legal 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 Gender Identity Not on file Sexual [...] on filedocumented in this encounter Care Teams Spool Salvager Relationship Specialty Start Date End Date Fuentes Orellana MD PCP - General 11/28/16 Itz Iyer MD [address] [facility] [address] [place] [address] Consulting Physician Urology 05/31/18 Lupillo Davenport MD [address] [place] [address] Referring Physician Radiation Oncology 05/31/18 Lupillo Davenport MD [address] [place] [address] Referring Physician Radiation Oncology 05/31/18 Shawnee Mckinney MD [address] [facility] [address] [place] [address] Referring Physician Urology 06/03/18 Chicho Clayton MD [address] [facility] [address] [place] [address] Medical Oncologist/Hematologis t Medical Oncology 06/07/18 Newton Weeks MD [address] [facility] [address] [place] [address] Referring Physician Radiation Oncology 06/07/18 Maria Guadalupe Palacios RN Registered Nurse 06/10/18 Lupillo Davenport MD [address] [place] [address] [place] [address] Referring Physician Radiation Oncology 06/16/18 Itz Iyer MD [address] [address] Consulting Physician Urology 06/17/18 06/17/18 Itz Iyer MD [address] [place] [address] Consulting Physician Urology 06/18/18 06/18/18 Itz Iyer MD [address] [address] Consulting Physician Urology 06/18/18 06/18/18 Itz Iyer MD [address] [address] Consulting Physician Urology 06/22/18 06/22/18 Itz Iyer MD [address] [place] [address] Consulting Physician Urology 07/01/18 07/01/18 Itz Iyer MD [address] [place] [address] Consulting Physician Urology 07/06/18 07/06/18 Danis Meza NP [address] [place] [address] Nurse Practitioner Urology 10/06/22 Antonette Owens NP [address] [place] [address] Nurse Practitioner Cardiovascular Disease 10/06/22 Aniceto Foley MD [address] [place] [address] Surgeon Vascular Surgery 10/31/22 documented as of this encounter
--- OUTSIDE RECORDS SUMMARY | 2025-07-07 11:52 | XMS_ITS | Encounter Summary ---
Author Organization [facility] Healthcare Address [address] [place] [address] Care Team Providers Care Rn Concurrent Review Name Role Phone Fuentes Orellana MD Primary Care Provider [phone] Itz Iyer MD Unavailable [phone] Shawnee Mckinney MD Unavailable [phone] Chicho Clayton MD Unavailable Maria Guadalupe Palacios RN Unavailable Unava ilable Lupillo Davenport MD Unavailable [phone] Danis Meza VACUUM FRAME OPERATOR Unavailable [phone] Antonette Owens NP Unavailable Aniceto Foley MD Unavailable [phone] Reason for Referral * MRI/CAT/PET Scan (Routine) - Authorized Specialty Diagnoses / Procedures Referred By Contac t Referred To Contact Radiology Diagnoses Pelvic pain Procedures [place] [address] [place] [address] Phone: tel: fax: [address] [phone] Referral ID Status Reason Start Date Expiration Date V isits Requested Visits Authorized [id number] Authorized 06/23/2025 07/23/2026 1 1 * Diagnostic Imaging (Routine) - Closed Specialty Diagnoses / Procedures Referred By Luis Felipe huerta Referred To Contact Radiology Diagnoses Microscopic hematuria Procedures CT ABDOMEN [place] [address] [place] [address] Phone: tel: fax: [address] [phone] Referral ID Status Reason Start Date Expiration Date Visits Re quested Visits Authorized [id number] Closed 06/23/2025 07/23/2026 1 1 Encounter Details Date Type Department Care Team (Late st Contact Info) Description 06/23/2025 Community Orders [facility] [place] [address] [place] [address] Microscopic hematuria (Primary Dx); Pelvic pain Social History Tobacco Use Types Packs/Day Years Used Date Smoking Tobacco: Former Cigarettes 1.5 19 1 966 - 1984 Passive Smoke Exposure: Past Smokeless Tobacco: Never Alcohol Use Standard Drinks/Week Comments Yes 4 (1 standard drink = 0.6 oz pur e alcohol) [facility] Utilities Answer Date Recorded In the past 12 months has e electric, gas, oil, or water [employer] threatened to shut off services in your [...] often do you attend chur ch or church services? More than 4 times per year 11/11/2024 Do you belong to any clubs o r organizations such as sabianist groups, unions, fraternal or athletic groups, or [...] any time in the past 12 m [place], were you homeless or living in a snf (including now)? 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 [facility] Thomas Meneses MD [facility] CT PROCEDURES Final Result documented in this encounter Visit Diagnoses Diagnosis Microscopic hematuria- Primary Pelvic pain Microscopic hematuria documented in this encounter Care Teams Rn Concurrent Review Relationship Specialty Start Date End Date Fuentes Orellana MD PCP - General 11/28/16 Itz Iyer MD [address] [place] [address] Consulting Physician Urology 05/31/18 Shawnee Mckinney MD [address] [facility] [address] [place] [address] Referring Physician Urology 06/03/18 Chicho Clayton MD [address] [place] [address] Medical Oncologist/Hematologis t Medical Oncology 06/07/18 Maria Guadalupe Palacios, RN Registered Nurse 06/10/18 Lupillo Davenport MD Referring Physician Radiation Oncology 06/16/18 Danis Meza NP [address] [facility] [address] [place] [address] Nurse Practitioner Urology 10/06/22 Antonette Owens NP [address] [place] [address] Nurse Practitioner Cardiovascular Disease 10/06/22 Aniceto Foley MD [address] [place] [address] Surgeon Vascular Surgery 10/31/22 documented as of this encounter
--- OUTSIDE RECORDS SUMMARY | 2025-07-07 11:52 | XMS_ITS | Encounter Summary ---
Author Organization [facility] Address [address] [place] [address] Phone Care Team Providers Care Dental Sales Representative Name Role Phone Fuentes Orellana MD Primary Care Provider [phone] Brent Dickinson DO Unavailable [phone] Faviola Jiménez WIDE AREA NETWORK ENGINEER, NOUGAT CANDY MAKER HELPER Unavailable Shawnee Mckinney MD Unavailable Chicho Clayton MD Unavailable Lai Lambert WIDE AREA NETWORK ENGINEER, NOUGAT CANDY MAKER HELPER Unavailable [phone] Kami Meneses MD Unavailable [phone] Anette Bond MD Unavailable [phone] Kay Gordon WIDE AREA NETWORK ENGINEER, NOUGAT CANDY MAKER HELPER Unavailable Kami Meneses MD Unavailable [phone] Kami Meneses MD Unavailable Kami Meneses MD Unavailable [phone] Reason for Visit * Reason Comments Medication Refill Encounter Details Date Type Department Care Team (Late st Contact Info) Description 03/25/2021 Refill [facility] - Gastroenterology - [place] [address] [place] [address] Ingrid Mccloud Ashley, PAC [address] [place] [address] Medication Refill Social History Tobacco Use Types [...] 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 [place] [address] Nurse Practitioner Advanced Practice Nurse 07/22/16 Shawnee Mckinney MD [address] [facility] [address] [place] [address] Urologist Urology 06/07/19 Chicho Clayton MD [address] [facility] [address] [place] [address] Oncology 06/13/19 Lai Lambert APRN, NOUGAT CANDY MAKER HELPER [address] [place] [address] Nurse Practitioner Advanced Practice Nurse 02/10/23 Kami Meneses MD [address] [address] Consulting Physician Urology 06/16/23 Anette Bond MD [address] [place] [address] Consulting Physician Gastroenterology 12/25/22 Kay Gordon APRN, NOUGAT CANDY MAKER HELPER [address] [place] [address] Nurse Practitioner Advanced Practice Nurse 06/16/24 Kami Meneses MD [address] [facility] [address] [place] [address] Consulting Physician Urology 08/19/24 Kami Meneses MD [address], [facility] [address] [place] [address] Consulting Physician Urology 01/06/25 Kami Meneses MD [address], [facility] [address] [place] [address] Consulting Physician Urology 03/08/25 documented as of this encounter
--- OUTSIDE RECORDS SUMMARY | 2025-07-07 11:52 | XMS_ITS | Clinical Summary ---
Author Organization [facility] [address] Address [address] [place] [address] Care Team Providers Care Certification Engineer Name Role Phone Fuentes Orellana MD Primary Care Provider Itz Iyer MD Unavailable Shawnee Mckinney MD Unavailable [phone] Chicho Clayton MD Unavailable Maria Guadalupe Palacios RN Unavailable Unava ilable Lupillo Davenport MD Unavailable [phone] Danis Meza ORNITHOLOGY TEACHER Unavailable Antonette Owens NP Unavailable Aniceto Foley [...] release tabletIndicati ons:Coronary artery disease involving [place] coronary artery of [place] heart without angina pectoris TAKE 1 TABLET(25 MG) BY MOUTH TWICE DAILY 90 tablet 3 06/09/20 25 Active metoprolol tartrate (LOPRESSOR) 25 mg immediate release tabletIndicati ons:Coronary artery disease involving [place] coronary artery of [place] heart without angina pectoris TAKE 1 TABLET(25 [...] (10/21/2022): Added automatically from request for surgery [id number] Assessment & Plan (10/30/2022 2:56 PM JACQUARD TWINE POLISHER OPERATOR): - OR 3/2 for planned R CEA - OU status, Q2h NV/VS monitoring - Bedrest today, OOB/PT POD #1 - SBP goal 100-160, nicardipine for elevated BP - Continue aspirin and statin - Plan to stager home medications and resume overnight Atherosclerosis of [place] ar teries of extremities with intermittent claudication, bilateral legs 06/03/2022 Melanoma 01/10/2021 Anxiety 01/10/2021 DM (diabetes mellitus) 01/10/2021 Assessment & Plan (04/25/2025 6:06 AM CDT): NIDDM, on finerenon, amaryl, tradjenta. - Hold home PO diabetic meds while inpatient. Restart at discharge. - Diabetic diet, SSI Assessment & Plan (10/30/2022 9:59 AM JACQUARD TWINE POLISHER OPERATOR): - A1c 7.6% 10/2022 - SSI while inpatient - CC diet when eating Elevated left ventricular end-diastolic pressure (LVEDP) 11/15/2019 Encounter for surgical after care following surgery of circulatory system 05/20/2019 Prostate cancer 09/10/2018 Assessment & Plan (10/27/2018 9:53 AM JACQUARD TWINE POLISHER OPERATOR): Follows with urology, has his PSA monitored it is increasing, but still WNL 1.4 Assessment & Plan (09/22/2018 11:35 AM JACQUARD TWINE POLISHER OPERATOR): Has close follow up with his oncologist. His PSA was slightly elevated on last check. Hyperlipidemia 09/21/2017 Assessment & Plan (06/30/2018 9:38 AM CDT): His last lipid panel was within acceptable range; he will continue on a high intensity statin. Assessment & Plan (09/21/2017 11:34 AM JACQUARD TWINE POLISHER OPERATOR): Continue Lipitor 40 mg daily. Essential hypertension 07/20/2017 Assessment & Plan (10/30/2022 2:57 PM JACQUARD TWINE POLISHER OPERATOR): - Tight BP goals post-procedure - Continue home medications as indicated by BP goals as above, staggering overnight for gentle BP control Assessment & Plan (10/27/2018 9:54 AM JACQUARD TWINE POLISHER OPERATOR): Hypertension is unchanged. Dietary sodium restriction. Blood pressure will be reassessed in 4 weeks. Assessment & Plan (09/22/2018 11:38 AM JACQUARD TWINE POLISHER OPERATOR): Hypertension remains elevated. He is increasing [...] today Assessment & Plan (09/21/2017 11:33 AM JACQUARD TWINE POLISHER OPERATOR): Blood pressure is well controlled today. Last visit we added HCTZ 12.5 mg daily. Continue current medications Assessment & Plan (08/10/2017 11:26 AM JACQUARD TWINE POLISHER OPERATOR): Blood pressure is not controlled. Add hydrochlorothiazide 12.5 mg p.o. daily. He is compliant with medications but always add salt to food which I advised him not to do that. Assessment & Plan (07/20/2017 9:19 AM JACQUARD TWINE POLISHER OPERATOR): Blood pressure remains uncontrolled. We will order renal Doppler ultrasound to rule out renal artery stenosis given the fact that he has peripheral vascular disease and coronary artery disease. I will increase amlodipine from 5-10 mg p.o. daily. If that does not control the blood pressure we will add hydrochlorothiazide 12.5 mg p.o. Daily. Coronary artery disease invo lving [place] coronary artery of [place] heart without angina pectoris 07/20/2017 Assessment & Plan (10/30/2022 9:58 AM JACQUARD TWINE POLISHER OPERATOR): - Continue home medications as able - Maintained on Brilinta as an outpatient; held 1 week prior to OR - Will discuss with surgery team when to safely resume post-procedure Assessment & Plan (10/27/2018 9:59 AM JACQUARD TWINE POLISHER OPERATOR): Coronary artery disease is improving with lifestyle modifications. Continue current treatment regimen. Cardiac status will be reassessed in 3 months. No chest pain. Minimal SOB. Continue asa, statin, brilinta Assessment & Plan (09/22/2018 11:36 AM JACQUARD TWINE POLISHER OPERATOR): Coronary artery disease is unchanged. Regular [...] BB. Assessment & Plan (09/21/2017 11:33 AM JACQUARD TWINE POLISHER OPERATOR): Continue aspirin, Brilinta, Toprol XL and atorvastatin. Assessment & Plan (08/10/2017 11:27 AM JACQUARD TWINE POLISHER OPERATOR): Continue Brilinta and aspirin. Asymptomatic. Assessment & Plan (07/20/2017 9:19 AM JACQUARD TWINE POLISHER OPERATOR): Continue aspirin, Brilinta, Lipitor , metoprolol [...] plan. Assessment & Plan (10/27/2018 9:21 AM JACQUARD TWINE POLISHER OPERATOR): S/P bilateral ALVA angioplasty; right EIA angioplasty/stent 11/21/14. S/P aortoiliac angioplasty/stent 05/28/09. Continues on asa, statin and brilinta Assessment & Plan (09/21/2017 11:34 AM JACQUARD TWINE POLISHER OPERATOR): He follows up with vascular surgery at [facility] Assessment & Plan (08/10/2017 11:27 AM JACQUARD TWINE POLISHER OPERATOR): Renal ultrasound suggest more than 60% stenosis in the right renal artery and infrarenal stenosis 50-70%. He follows up with Dr. Foley from vascular surgery at [facility] Assessment & Plan (07/20/2017 9:20 AM JACQUARD TWINE POLISHER OPERATOR): Patient will follow up with Dr. [...] 02/09/2019 Assessment & Plan (10/27/2018 10:17 AM JACQUARD TWINE POLISHER OPERATOR): Persistent dizziness. Has stopped caffeine intake. [...] or graft 6 02/09/2019 Atherosclerosis of [place] artery of extremity 04/15/20 16 02/09/2019 Assessment & Plan (09/22/2018 11:26 AM JACQUARD TWINE POLISHER OPERATOR): 80% circumflex s/p RICAHRD. Moderate 30 % LAD with bridging Impotence of organic origin 09/18/2015 02/09/2019 Urinary tract infection 01/18/201501/29 Incontinence 01/18/2015 02/09/2019 Stricture, urethra 07/31/2011 9 Overview (12/10/2017): Description: Dilation 06/09/11 Nocturia 11/28/2010 02/09/2019 Hypertension 05/16/2009 02/09/2019 Assessment & Plan (10/27/2018 10:11 AM JACQUARD TWINE POLISHER OPERATOR): Hypertension is {improving/stable/worsenin}. {plan; hypertension for POC:[id number]} Blood pressure will be reassessed {plan; follow-up 2 weeks/4weeks/3months:[id number]}. Increase amolodipine to 10 mg Continue all [...] - 06/30/2025 11:59 PM CDT Hospital Encounter [facility] Medical Office Building [address] [address] Microscopic hematuria Discharge Disposition: Discharge to home or self care 06/23/2025 Community Orders [facility] EpicCare Link Kami Meneses MD Microscopic hematuria (Primary Dx); Pelvic pain 05/24/2025 11:45 AM CDT Office Visit [facility] Medicine Surgery [address] [place] [address] 8th [place] [address] [place] [address] Aniceto Foley MD Atherosclerosis of [place] arteries of extremities with intermittent claudication, bilateral legs (Primary Dx) 05/24/2025 11:00 AM CDT Ancillary Procedure [facility] Medicine Vascular Lab at the [address] 8th [place] [address] [place] [address] Encounter for surgical aftercare following surgery on the circulatory system 05/24/2025 10:15 AM CDT Ancillary Procedure [facility] Vascular Lab at the [facility] [address] [facility] 8th [place] [address] [place] [address] Atherosclerosis of [place] arteries of extremities with intermittent claudication, right leg 05/18/2025 Orders Only [facility] Medicine Vascular Surgery [address] [facility] Medical Office Building 3 [address] [place] [address] Aniceto Foley MD Encounter for surgical aftercare following surgery on the circulatory system (Primary Dx) 05/12/2025 10:00 AM CDT Office Visit [facility] Cardiology [address] [place] [phone] Kay Ward NP Coronary artery disease of [place] artery of [place] heart with stable angina pectoris; Essential hypertension; LVH (left ventricular hypertrophy); PVD (peripheral vascular disease) 05/09/2025 Telephone [facility] Cardiology [address] [place] [phone] Kay Ward NP 04/24/2025 8:30 AM CDT - 04/24/2025 11:45 AM CDT Surgery [facility] Operating Room 1 [place] [address] Aniceto Foley MD ANGIOGRAM - HYBRID ROOM aorto iliac angiogram 04/24/2025 8:30 AM CDT Anesthesia Event [facility] Operating Room [address] [place] [address] Yuko Rodriguez MD Horton, Cheryl Renee Hill, NP 04/24/2025 6:23 AM CDT - 04/26/2025 11:35 AM CDT Hospital Encounter [address] [address] Aniceto Foley MD PAD (peripheral artery disease) Discharge Disposition: Discharge to home or self care 04/21/2025 Telephone [facility] Medicine Vascular Surgery [address] [facility] Medical Office Building [address] [place] [address] Aniceto Foley MD from Last 3 Months Immunizations Immunization [...] INTRAOCULAR LENS IMPLANT Right ANGIO SELECTIVE CAROTID BOAT BUILDER RIGHT 10/15/2022 Right MELANOMA RESECTION 12/17/2014 Right [...] iliac angiogram; Surgeon: Aniceto Foley MD; Location: [facility] OR POD 3; Service: Vascular; Laterality: Bilateral; Medical devices from this surgery are in the Medical Devices section. CARDIAC CATHETERIZATION 04/24/2025 N/A Procedure: Percutaneous Lithotripsy Shockwave; Surgeon: Aniceto Foley MD; Location: [facility] OR POD 3; Service: Vascular; Laterality: N/A; [...] 0.6 oz pur e alcohol) [facility] Utilities Answer Date Recorded In the past 12 months has [employer], gas, oil, or water [employer] threatened to shut off services in your [...] often do you attend chur ch or anglican services? More than 4 times per year [...] any time in the past 12 m [facility], were you homeless or living in a [facility] (including now)? No 11/11/2024 AUDIT-C Answer Date [...] on file Legal Sex Male 12:32 AM JACQUARD TWINE POLISHER OPERATOR Gender Identity Not on file Sexual [...] 1999 Well Visit 65+ 2014 Covid-19 Vaccine ( - 2024-2 6 season) 2025 11/25/2020, 11/01/2020 [...] history exists Medical Devices Implanted Type Area General Farm Manager Device Identifier Shelf Expiration Date Model / Serial / Lot Other - See Comments-05/17/20 Implanted:2014 (Quantity not on file) Other - see comments Bladder Description:Bladder control Stent Stent Bilateral: Groin Description:Per pt 4-5 stent s Stent Stent N/A: Heart [employer] Sandra Express Ld Tandem Architecture 8mm 17mm 135cm Otw [place] [id number] - [id number] Implanted:Qty: 1 on 04/24/2025 by Aniceto Foley MD at [facility] Stent N/A: Infrarenal Aorta [employer] Sandra [id number] 10/12/2026 [id number] / / [id number] [employer] Stent Graft Endoprosthesis Reduced Profile Straight Heparin Coated Viabahn [id number] - [id number] - [id number] Implanted:Qty: 1 on 04/24/2025 by Aniceto Foley MD at [facility] Stent N/A: Infrarenal Aorta Wl [employer] [id number] 08/05/2027 [id number] / [id number] / Wl [employer] Stent Graft Endoprosthesis Reduced Profile Straight Heparin Coated Viabahn [id number] - [id number] - [id number] Implanted:Qty: 1 on 04/24/2025 by Aniceto Foley MD at [facility] Stent Right: Iliac Wl [employer] [id number] 10/02/2027 [id number] / [id number] / Wl [employer] Stent Graft Endoprosthesis Reduced Profile Straight Heparin Coated Viabahn [id number] - [id number] - [id number] Implanted:Qty: 1 on 04/24/2025 by Aniceto Foley MD at [facility] Stent Left: Iliac Wl [employer] [id number] 07/31/2027 [id number] / [id number] / Wl [employer] Stent Graft Endoprosthesis Reduced Profile Straight Heparin Coated Viabahn [id number] - [id number] - [id number] Implanted:Qty: 1 on 04/24/2025 by Aniceto Foley MD at [facility] Stent Right: External Iliac Artery Wl [employer] [id number] 09/21/2027 [id number] / [id number] / Wl [employer] Stent Graft Endoprosthesis Reduced Profile Straight Heparin Coated Viabahn [id number] - [id number] - [id number] Implanted:Qty: 1 on 04/24/2025 by Aniceto Foley MD at [facility] Stent Right: Iliac Wl [employer] [id number] 11/07/2027 [id number] / [id number] / [employer] Device Vascular Closure Femoral Artery Bioabsorbable Dual Method Vascade 6-7fr Collagen [id number] - [id number] Implanted:Qty: 1 on 04/24/2025 by Arturo Hopkins MD at [facility] Vascular Closure Device Right: Groin [employer] [id number] 01/16/2027 [id number]- [id number] / / [id number] [employer] Device Vascular Closure Femoral Artery Bioabsorbable Dual Method Vascade 6-7fr Collagen [id number] - [id number] Implanted:Qty: 1 on 04/24/2025 by Arturo Hopkins MD at [facility] Vascular Closure Device Left: Groin [employer] [id number] 01/16/2027 [id number]- 05U / / Stent Right: Eye Artificail Urinary Sphincter-05/08/20 15 Implanted:2014 by Shawnee Mckinney MD (Quantity not on file) N/A: Urethra Description:05/08/2019 Placeme nt of artificial urinary sphincter with a 3.5 cm cuff and 61 to 70 cm pressure-regulating balloon. [employer] Vascu-Guard 8x.8cm Peripheral Patch Vascular Bovine Pericardium [id number] - [id number] Implanted:Qty: 1 on 10/30/2022 by Aniceto Foley MD at [facility] Right: Carotid [employer] [id number] 07/09/2023 [id number] / / [id number] [employer] Sandra Ams 800 Kit Accessory Sterile Disposable Latex Free Urinary [id number] - [id number] Implanted:Qty: 1 on 11/09/2024 by Kami Meneses MD at [facility] N/A: Urethra [employer] Sandra [id number] 03/09/2029 [id number] / / [id number] [employer] Sandra Cuff Urethral Ams 800 Inhibizone 3.5cm [id number] - [id number] Implanted:Qty: 1 on 11/09/2024 by Kami Meneses MD at [facility] N/A: Urethra [employer] Sandra [id number] 02/22/2026 [id number] / / [id number] [employer] Sandra Ams 800 Pressure Balloon Sphincter 61-70cu Cm Implant Urological [id number] - [id number] Implanted:Qty: 1 on 11/09/2024 by Kami Meneses MD at [facility] N/A: Abdomen [employer] Sandra [id number] 03/20/2029 [id number] / / [id number] [employer] Sandra Ams 800 Control Pump Sphincter Implant Urological Inhibizone [id number] - [id number] Implanted:Qty: 1 on 11/09/2024 by Kami Meneses MD at [facility] N/A: Scrotum [employer] Scientific Sandra [id number] 02/15/2026 [id number] / / [id number] Procedures Procedure Name Priority Date/Time Associated [...] Routine) 05/24/2025 10:37 AM CDT Atherosclerosis of [place] arteries of extremities with intermittent claudication, right leg US ARTERIAL DOPPLER LOWER EXTREMITY BILATERAL Schedule Routine, Read Routine (OP Routine) 05/24/2025 10:37 AM CDT Atherosclerosis of [place] arteries of extremities with intermittent claudication, right [...] disease) PERCUTANEOUS CORONARY LITHROTRIPSY W/ PCI (+) 16781 Routine 04/24/2025 11:50 AM CDT PAD (peripheral [...] CHEMISTRIES, ARTERIAL Routine 04/24/2025 9:41 AM CDT [place] AN PROCEDURE PLACEHOLDER Routine 04/24/2025 9:20 AM CDT [place] AN PROCEDURE PLACEHOLDER Routine 04/24/2025 9:19 AM CDT [place] AN PROCEDURE PLACEHOLDER Routine 04/24/2025 9:18 AM CDT [place] AN PROCEDURE PLACEHOLDER Routine 04/24/2025 8:50 AM CDT [place] AN ELECTIVE ENDOTRACHEAL AIRWAY Routine 04/24/2025 8:50 [...] place. Electronically signed by: Alfonso Martinez M.D. Kami Gleason MD IMG CT PROCEDURES Final Result * (ABNORMAL) POCT creatinine for contrast evaluation (06/30/2025 11:00 AM CDT) Creatinine POC 1.70(H) 0.80 - 1.30 mg/dL Comment:Testing performed by : [facility], [address] [place] [address], [place]., [address] Blood 06/30/2025 11:0 0 AM CDT 06/30/2025 11:00 AM CDT Kami Gleason MD POINT OF CARE TEST ORDERABLES Final Result [facility] [address] Department [place] [address] * US Duplex Scan of Aorta; Inferior Vena Cava, Iliac, Limited or Unilateral (05/24/2025 10:38 AM CDT) Anatomical Region Laterality Modality Vascular Ultrasound 05/24/2025 10:0 6 AM CDT Narrative 05/24/2025 11:40 AM CDT [facility] Medicine - Department of Vascular Surgery, Vascular Laboratory [address] [place] [address] Abdominal Aortic Duplex Ultrasound Report Patient Name: RIVERA FREEMAN : 1950 Study Date: 05/24/2025 10:06:21 AM Sex: M Tech: TT Location: [facility] Provider: ANICETO FOLEY Quality: Adequate Order [...] Value Units Arteries Value Units FINDINGS: Performing Toy Designer: Jay Hutson RVT. Study Quality: Limited. Abdominal [...] Procedure Note Thomas Gupta MD - 05/24/2025 [facility] - Department of Vascular Surgery,Vascular Laboratory [address] [place] [address] Abdominal Aortic Duplex Ultrasound Report Patient Name: RIVERA FREEMAN : 1950 Study Date: 05/24/2025 10:06:21 AM Sex: M Tech: TT Location: [facility] Provider: ANICETO FOLEY Quality: Adequate Order [...] Value Units Arteries Value Units FINDINGS: Performing Toy Designer: Jay Hutson RVT. Study Quality: Limited. Abdominal [...] Gupta MD FACS 05/24/2025 11:09:44 AM CDT us Aniceto Foley MD IMG US PROCEDURES Final Resul t * US Arterial Duplex Lower Extremity Right Limited (05/24/2025 10:37 AM CDT) Anatomical Region Laterality Modality Vascular Right Ultrasound 05/24/2025 9:42 AM CDT Narrative 05/24/2025 11:40 AM CDT [facility] - Department of Vascular Surgery, Vascular Laboratory [address] [place] [address] [place] Lower Extremity Arterial Duplex Report Patient Name: RIVERA FREEMAN : 1950 Study Date: 05/24/2025 9:42:26 AM Sex: M Tech: TT Location: [facility] Provider: ANICETO FOLEY Quality: Adequate Order Provider: ANICETO FOLEY PROCEDURES: Arterial Report: Right Lower Extremity Arterial Duplex Exam. INDICATIONS: I70.211 Atherosclerosis of [place] arteries of extremities with intermittent claudication, right leg. MEASUREMENTS: Right Value Units Rt STOCK RANCH SUPERVISOR Dst PSV 180 cm/s Rt Profunda Prx PSV 184 cm/s Rt Superficial Femoral Prx PSV 189 cm/s Rt Superficial Femoral Mid PSV 79 cm/s Rt Superficial Femoral Dst PSV 94 cm/s Rt Pop Prx PSV 60 cm/s Rt Post Tibial Mid PSV 34 cm/s Rt Ant Tibial Mid PSV 55 cm/s Rt Peroneal Mid PSV 56 cm/s Right Value Units FINDINGS: Performing Toy Designer: Jay Hutson RVT. Right Common Femoral: The [...] Duplex imaging of the right lower extremity [place] arteries reveals patent vessels with no flow [...] Procedure Note Thomas Gupta MD - 05/24/2025 [facility] - Department of Vascular Surgery,Vascular Laboratory [address] [place] [address] [place] Lower Extremity Arterial Duplex Report Patient Name: RIVERA FREEMAN : 1950 Study Date: 05/24/2025 9:42:26 AM Sex: M Tech: TT Location: [facility] Ref Provider: ANICETO FOLEY Quality: Adequate Order Provider: ANICETO FOLEY PROCEDURES: Arterial Report: Right Lower Extremity Arterial Duplex Exam. INDICATIONS: I70.211 Atherosclerosis of [place] arteries of extremities withintermittent claudication, right leg. MEASUREMENTS: Right Value Units Rt STOCK RANCH SUPERVISOR Dst PSV 180 cm/s Rt Profunda Prx PSV 184 cm/s Rt Superficial Femoral Prx PSV 189 cm/s Rt Superficial Femoral Mid PSV 79 cm/s Rt Superficial Femoral Dst PSV 94 cm/s Rt Pop Prx PSV 60 cm/s Rt Post Tibial Mid PSV 34 cm/s Rt Ant Tibial Mid PSV 55 cm/s Rt Peroneal Mid PSV 56 cm/s Right Value Units FINDINGS: Performing Toy Designer: Jay Hutson RVT. Right Common Femoral: The [...] Duplex imaging of the right lower extremity [place] arteries revealspatent vessels with no flow limiting [...] above. Electronically Signed By: Thomas Gupta MD [facility] 05/24/2025 11:08:37 AM CDT us Aniceto Foley MD IMG US PROCEDURES Final Resul t * US Arterial Doppler Lower Extremity Bilateral (05/24/2025 10:37 AM CDT) Anatomical Region Laterality Modality Vascular Bilateral Ultrasound 05/24/2025 9:45 AM CDT Narrative 05/24/2025 11:40 AM CDT [facility] - Department of Vascular Surgery, Vascular Laboratory [address] [place] [address] Lower Extremity Arterial Doppler Report Patient Name: RIVERA FREEMAN : 1950 Study Date: 05/24/2025 9:45:00 AM Sex: M Tech: Jay Hutson [facility] Location: [facility] Ref Provider: ANICETO FOLEY Quality: Adequate Order Provider: ANICETO FOLEY PROCEDURES: Arterial Report: Bilateral lower extremity arterial Doppler exam at rest. INDICATIONS: I70.211 Atherosclerosis of [place] arteries of extremities with intermittent claudication, right leg. MEASUREMENTS: Right Value Units Left Value Units Rt Brachial Pressure 150 mmHg Lt Brachial Pressure 151 mmHg Rt SANITATION TRUCK CLEANER Pressure 141 mmHg Lt SANITATION TRUCK CLEANER Pressure 141 mmHg Rt DPA Pressure 139 mmHg Lt DPA Pressure 114 mmHg Rt 1st Digit Pressure 91 mmHg Lt 1st Digit Pressure 105 mmHg Rt PT TORREY Resting 0.93 Lt PT TORREY Resting 0.93 Rt AT TORREY Resting 0.92 Lt AT TORREY Resting 0.75 Rt Digit/Arm Index 0.6 Lt Digit/Arm Index 0.7 Right Value Units Left Value Units FINDINGS: Performing Toy Designer: Jay Hutson RVT. Right All Levels: The [...] Procedure Note Thomas Gupta MD - 05/24/2025 [facility] - Department of Vascular Surgery,Vascular Laboratory [address] [place] [address] Lower Extremity Arterial Doppler Report Patient Name: RIVERA FREEMAN : 1950 Study Date: 05/24/2025 9:45:00 AM Sex: M Tech: Jay Hutson Rogers Location: [facility] Ref Provider: ANICETO FOLEY Quality: Adequate Order Provider: ANICETO FOLEY PROCEDURES: Arterial Report: Bilateral lower extremity arterial Doppler exam at rest. INDICATIONS: I70.211 Atherosclerosis of [place] arteries of extremities withintermittent claudication, right leg. MEASUREMENTS: Right Value Units Left Value Units Rt Brachial Pressure 150 mmHg Lt Brachial Pressure 151 mmHg Rt SANITATION TRUCK CLEANER Pressure 141 mmHg Lt SANITATION TRUCK CLEANER Pressure 141 mmHg Rt DPA Pressure 139 mmHg Lt DPA Pressure 114 mmHg Rt 1st Digit Pressure 91 mmHg Lt 1st Digit Pressure 105 mmHg Rt PT TORREY Resting 0.93 Lt PT TORREY Resting 0.93 Rt AT TORREY Resting 0.92 Lt AT TORREY Resting 0.75 Rt Digit/Arm Index 0.6 Lt Digit/Arm Index 0.7 Right Value Units Left Value Units FINDINGS: Performing Toy Designer: Jay Hutson RVT. Right All Levels: The [...] 11:11:06 AM CDT us Aniceto Foley MD [facility] US PROCEDURES Final Resul t * ECG 12 lead (05/12/2025 12:03 PM CDT) Kay Ward ORNITHOLOGY TEACHER ECG ORDERABLES Final Res ult * POCT glucose (04/26/2025 8:01 AM CDT) Glucose, POC 151 70 - 199 mg/dL Blood 04/26/2025 8:01 AM CDT 04/26/2025 8:01 AM CDT Aniceto Foley MD LAB POCT ORDERABLES - DEVICE Final Result Performing Organization Address City/[facility]/ZIP Co de Phone Number [facility] [place] [address] * POCT glucose (04/25/2025 8:32 PM CDT) Glucose, POC 197 70 - 199 mg/dL Blood 04/25/2025 8:32 PM CDT 04/25/2025 8:32 PM CDT Aniceto Foley MD LAB POCT ORDERABLES - DEVICE Final Result Performing Organization Address [facility] Co de Phone Number [facility] [place] [address] * POCT glucose (04/25/2025 5:11 PM CDT) Glucose, POC 160 70 - 199 mg/dL Comment:Glu2: RN/MD Notified Glucose comment 1 Glu2: RN/MD Notified [facility] Blood 04/25/2025 5:11 PM CDT 04/25/2025 5:11 PM CDT us Aniceto Foley MD LAB POCT ORDERABLES - DEVICE Final Result Performing Organization Address City/[facility]/ZIP Co de Phone Number [facility] [place] [address] * POCT glucose (04/25/2025 11:30 AM CDT) Pathologist [facility] Glucose, POC 174 70 - 199 mg/dL Comment:Glu2: BARAK/ Notified Glucose comment 1 Glu2: BARAK/ Notified [facility] Blood 04/25/2025 11:3 0 AM CDT 04/25/2025 11:30 AM CDT us Aniceto Foley MD LAB POCT ORDERABLES - DEVICE Final Result Performing Organization Address [facility] Co de Phone Number [facility] [place] [address] * POCT glucose (04/25/2025 7:30 AM CDT) [facility] Glucose, POC 121 70 - 199 mg/dL Comment:Glu2: TERRIE Notified Glucose comment 1 Glu2: TERRIE Notified [facility] Blood 04/25/2025 7:30 AM CDT 04/25/2025 7:30 AM CDT us Aniceto Foley MD LAB POCT ORDERABLES - DEVICE Final Result Performing Organization Address [facility] Co de Phone Number [facility] [place] [address] * (ABNORMAL) eGFR (04/25/2025 1:25 AM CDT) Pathologist [facility] eGFR 54(L) >=60 mL/min/1. 73 m2 Comment: [...] MD LAB BLOOD ORDERABLES Final Re sult [facility] [place] [address] * (ABNORMAL) CBC without differential (04/25/2025 1:25 AM CDT) WBC 7.83 3.80 - 9.90 K/cumm Hgb 9.7(L) 13.0 - 17.5 g/dL [facility] Hct 29.1(L) 38.9 - 50.3 % [facility] Plt 151 150 - 400 K/cumm [facility] MPV 11.1 9.1 - 12.3 fL [facility] RBC 3.13(L) 4.30 - 5.80 M/cumm [facility] MCV 93.0 81.3 - 96.4 fL [facility] MCH 31.0 27.1 - 33.3 pg [facility] MCHC 33.3 32.3 - 35.7 g/dL [facility] RDW CV 15.3(H) 11.1 - 14.9 % [facility] RDW SD 51.3(H) 35.7 - 48.1 fL [facility] NRBC abs 0.00 0.00 - 0.01 K/cumm [facility] Blood 04/25/2025 1:25 AM CDT 04/25/2025 1:53 AM CDT us Aniceto Foley MD LAB BLOOD ORDERABLES Final Re sult [facility] [place] [address] * (ABNORMAL) Basic metabolic panel (04/25/2025 1:25 AM CDT) Sodium 145 135 - 145 mmol/L Potassium, pl 4.4 3.3 - 4.9 mmol/L [facility] Chloride 111(H) 97 - 110 mmol/L [facility] CO2 27 22 - 32 mmol/L [facility] Anion gap 7 2 - 15 mmol/L [facility] BUN 27(H) 6 - 25 mg/dL [facility] Creatinine 1.36(H) 0.80 - 1.30 mg/dL [facility] Glucose 107 70 - 199 mg/dL [facility] Comment: Interpretive Data Fasting glucose [...] 2022. Calcium 10.1 8.5 - 10.3 mg/dL [facility] Blood 04/25/2025 1:25 AM CDT 04/25/2025 1:51 AM CDT us Aniceto Foley MD LAB BLOOD ORDERABLES Final Re sult [facility] [place] [address] * POCT glucose (04/24/2025 8:19 PM CDT) Glucose, POC 112 70 - 199 mg/dL Blood 04/24/2025 8:19 PM CDT 04/24/2025 8:19 PM CDT us Aniceto Foley MD LAB POCT ORDERABLES - DEVICE Final Result Performing Organization Address [facility] Co de Phone Number [facility] [place] [address] * POCT glucose (04/24/2025 4:59 PM CDT) Glucose, POC 136 70 - 199 mg/dL Comment:Glu2: RN/MD Notified Glucose comment 1 Glu2: RN/MD Notified [facility] Blood 04/24/2025 4:59 PM CDT 04/24/2025 4:59 PM CDT us Aniceto Foley MD LAB POCT ORDERABLES - DEVICE Final Result Performing Organization Address [facility] de Phone Number [facility] [place] [address] * (ABNORMAL) eGFR (04/24/2025 12:22 PM CDT) [facility] eGFR 58(L) >=60 mL/min/1. 73 m2 Comment: [...] ORDERABLES Final Re sult Performing Organization Address [facility] Co de Phone Number [facility] [place] [address] * (ABNORMAL) CBC without differential (04/24/2025 12:22 PM CDT) WBC 4.97 3.80 - 9.90 K/cumm Hgb 9.4(L) 13.0 - 17.5 g/dL [facility] Hct 28.9(L) 38.9 - 50.3 % [facility] Plt 141(L) 150 - 400 K/cumm [facility] MPV 11.2 9.1 - 12.3 fL [facility] RBC 3.09(L) 4.30 - 5.80 M/cumm [facility] MCV 93.5 81.3 - 96.4 fL [facility] MCH 30.4 27.1 - 33.3 pg [facility] MCHC 32.5 32.3 - 35.7 g/dL [facility] RDW CV 15.2(H) 11.1 - 14.9 % [facility] RDW SD 51.5(H) 35.7 - 48.1 fL [facility] NRBC abs 0.00 0.00 - 0.01 K/cumm [facility] Blood 04/24/2025 12:2 2 PM CDT 04/24/2025 12:39 PM CDT us Aniceto Foley MD LAB BLOOD ORDERABLES Final Re sult Performing Organization Address [facility]/ZIP Co de Phone Number [facility] [place] [address] * Lipid panel (04/24/2025 12:22 PM CDT) [...] revised on 2018. Triglycerides 75 <=149 mg/dL [facility] Comment: Interpretive Data Ages < [...] revised on 2018. HDL 42 >=40 mg/dL [facility] Comment: Interpretive Data Ages < [...] on 2018. LDL, calculated 78 <=129 mg/dL [facility] Comment: Interpretive Data Ages < [...] revised on 2024. Non-HDL Cholesterol 93 mg/dL [facility] Comment: Interpretive Data Ages < [...] revised on 2018. Chol/HDL ratio 3 [facility] Blood 04/24/2025 12:2 2 PM CDT 04/24/2025 12:39 PM CDT us Aniceto Foley MD LAB BLOOD ORDERABLES Final Re sult [facility] [place] [address] * (ABNORMAL) Basic metabolic panel (04/24/2025 12:22 PM CDT) Sodium 140 135 - 145 mmol/L Potassium, pl 4.3 3.3 - 4.9 mmol/L [facility] Chloride 108 97 - 110 mmol/L [facility] CO2 26 22 - 32 mmol/L [facility] Anion gap 6 2 - 15 mmol/L [facility] BUN 32(H) 6 - 25 mg/dL [facility] Creatinine 1.29 0.80 - 1.30 mg/dL [facility] Glucose 117 70 - 199 mg/dL [facility] Comment: Interpretive Data Fasting glucose [...] 2022. Calcium 9.9 8.5 - 10.3 mg/dL [facility] Blood 04/24/2025 12:2 2 PM CDT 04/24/2025 12:39 PM CDT us Aniceto Foley MD LAB BLOOD ORDERABLES Final Re sult [facility] [place] [address] * POCT glucose (04/24/2025 12:11 PM CDT) [facility] Signature Glucose, POC 121 70 - 199 mg/dL Blood 04/24/2025 12:1 1 PM CDT 04/24/2025 12:11 PM CDT us Aniceto Foley MD LAB POCT ORDERABLES - DEVICE Final Result [facility] [place] [address] * ANGIOGRAM - HYBRID ROOM, PLACEMENT STENT - ILIAC ARTERY - HYBRID ROOM (04/24/2025 11:50 AM CDT) Anatomical Region Laterality Modality X-Ray Angiograph y Narrative 04/24/2025 3:00 PM CDT Please see OpNote for result. us Aniceto Foley MD SURGICAL CASE ORDERS Final Re sult * ANGIOPLASTY BALLOON/STENT PLACEMENT, PERCUTANEOUS CORONARY LITHROTRIPSY W/ PCI (+) [id number] (04/24/2025 11:50 AM CDT) Anatomical Region Laterality Modality X-Ray Angiograph y Narrative 04/24/2025 3:00 PM CDT Please see OpNote for result. us Aniceto Foley MD CV CARDIAC CATH PROCEDURES Fi nal Result * POCT Activated clotting time, low range (04/24/2025 11:25 AM CDT) ACT 133 123 - 168 sec POC Device Number [id number] [facility] Blood 04/24/2025 11:2 5 AM CDT 04/24/2025 11:25 AM CDT us Aniceto Foley MD LAB POCT ORDERABLES - DEVICE Final Result Performing Organization Address [facility] Co de Phone Number [facility] [place] [address] * (ABNORMAL) POCT Activated clotting time, low range (04/24/2025 11:19 AM CDT) ACT 253(H) 123 - 168 sec POC Device Number [id number] [facility] Blood 04/24/2025 11:1 9 AM CDT 04/24/2025 11:19 AM CDT us Aniceto Foley MD LAB POCT ORDERABLES - DEVICE Final Result Performing Organization Address City/[facility]/ZIP Co de Phone Number [facility] [place] [address] * (ABNORMAL) POCT Activated clotting time, low range (04/24/2025 10:59 AM CDT) ACT 265(H) 123 - 168 sec POC Device Number [id number] [facility] Blood 04/24/2025 10:5 9 AM CDT 04/24/2025 10:59 AM CDT us Aniceto Foley MD LAB POCT ORDERABLES - DEVICE Final Result Performing Organization Address [facility] Co de Phone Number [facility] [place] [address] * (ABNORMAL) POCT Activated clotting time, low range (04/24/2025 10:33 AM CDT) ACT 253(H) 123 - 168 sec POC Device Number [id number] [facility] Blood 04/24/2025 10:3 3 AM CDT 04/24/2025 10:33 AM CDT us Aniceto Foley MD LAB POCT ORDERABLES - DEVICE Final Result Performing Organization Address [facility] Co de Phone Number [facility] [place] [address] * (ABNORMAL) POCT Activated clotting time, low range (04/24/2025 10:00 AM CDT) ACT 260(H) 123 - 168 sec POC Device Number [id number] [facility] Blood 04/24/2025 10:0 0 AM CDT 04/24/2025 10:00 AM CDT us Aniceto Foley MD LAB POCT ORDERABLES - DEVICE Final Result Performing Organization Address [facility] Co de Phone Number [facility] [place] [address] * (ABNORMAL) POCT Activated clotting time, low range (04/24/2025 9:48 AM CDT) ACT 213(H) 123 - 168 sec POC Device Number [id number] [facility] Blood 04/24/2025 9:48 AM CDT 04/24/2025 9:48 AM CDT Aniceto Foley MD LAB POCT ORDERABLES - DEVICE Final Result [facility] [place] [address] * (ABNORMAL) POC Blood Gas and Chemistries, Arterial - (04/24/2025 9:41 AM CDT) pH, Art POC 7.45 7.35 - 7.45 pCO2, Art POC 36 35 - 45 mmHg [facility] pO2, Art POC 190(H) 83 - 108 mmHg [facility] Na, POC 141 135 - 145 mmol/L [facility] K POC 4.5 3.3 - 4.9 mmol/L [facility] Comment: Interpretive Data Not all point of care methods assess for hemolysis. Confirm with instrument and retest K+ if not consistent with clinical signs and symptoms. Current Interpretive Data was last revised on 2023. Cl, POC 113(H) 97 - 110 mmol/L [facility] Ionized Ca, POC 5.78(H) 4.50 - 5.10 mg/dL [facility] Glucose, POC 136 70 - 199 mg/dL [facility] Lactate POC 1.1 0.7 - 2.0 mmol/L [facility] SO2 (samuel) arterial 99(H) 90 - 95 % [facility] Base excess, POC 1.1 mmol/L [facility] HCO3, Art POC 26 20 - 30 mmol/L [facility] Hct, POC 31.0(L) 41.4 - 51.6 % [facility] Total Hb, POC 10.3(L) 13.8 - 17.2 g/dL [facility] Blood 04/24/2025 9:41 AM CDT 04/24/2025 9:41 AM CDT Aniceto Foley MD LAB POCT ORDERABLES - DEVICE Final Result [facility] BRYSON [facility] [place] [address] * [place] AN PROCEDURE PLACEHOLDER (04/24/2025 9:20 AM CDT) Narrative Jorge Sánchez CRNA - 04/24/2025 9:20 AM CDT Jorge Sánchez CRNA 04/24/2025 9:21 AM Peripheral IV Catheter Patient location: OR Staff: Placed by: SUPPLY CLERK: Jorge Sánchez CRNA Preprocedure prep: Prep solution: [...] MD ANESTHESIA ORDERABLES Fi nal Result * [place] AN PROCEDURE PLACEHOLDER (04/24/2025 9:19 AM CDT) [...] MD ANESTHESIA ORDERABLES Fi nal Result * [place] AN PROCEDURE PLACEHOLDER (04/24/2025 9:18 AM CDT) Jorge Sullivan CRNA - 04/24/2025 9:18 AM CDT Jorge Sánchez CRNA 04/24/2025 9:19 AM Arterial Line Patient location: OR Indication: continuous blood pressure monitoring and blood sampling needed Ultrasound assisted: yes Staff: Placed by: SUPPLY CLERK: Jorge Sánchez CRNA Other staff: Yonas Meredith [...] MD ANESTHESIA ORDERABLES Fi nal Result * [place] AN ELECTIVE ENDOTRACHEAL AIRWAY, [place] AN PROCEDURE PLACEHOLDER (04/24/2025 8:50 AM CDT) [...] - DEVICE Final Result Performing Organization Address [facility] Co de Phone Number [facility] [place] [address] * Type and screen (04/24/2025 7:18 AM CDT) Pathologist [facility] Ashlee, indirect Negative ABO Rh A Negative [facility] Blood 04/24/2025 7:18 AM CDT 04/24/2025 7:31 AM CDT Narrative [facility] - 04/24/2025 8:34 AM CDT Has the patient had Daratumumab or Isatuximab in the past 6 months?->Unknown us Aniceto Foley MD LAB BLOOD BANK TEST ORDERABLE S Final Result Performing Organization Address [facility] de Phone Number [facility] [place] [address] * Prepare RBC: 2 Units (04/24/2025 6:46 AM CDT) Product code [id number] [facility] Unit Number [id number] 3-M [facility] Product Blood Type ANEG [facility] Dispense Status RETURNED [facility] Product code [id number] Unit Number [id number] 5-D [facility] Product Blood Type ANEG [facility] Dispense Status RETURNED [facility] Blood 04/24/2025 6:46 AM CDT 04/24/2025 6:46 AM CDT Narrative [facility] - 04/24/2025 11:58 AM CDT Specify Procedure:->Vascular surgery Are special requirements needed? (All products are leukoreduced and CMV- safe)- >No Date required:-[id number] LRRBC # of [id number] Reasons:-Hold for procedure (specify procedure)} Aniceto Foley MD BLOOD BANK PRODUCT ORDERABLES Final Result Performing Organization Address [facility] Co de Phone Number [facility] [place] [address] * (ABNORMAL) Hemoglobin A1c (03/17/2025 1:05 PM CDT) Hgb A1C 6.7(H) 4.0 - 5.6 % Estimated Average Glucose 146 mg/dL [facility] Comment: The ADA recommends reporting an estimated Average Glucose (eAG) with all Hemoglobin A1c results using the equation derived from a study of 507 normal and diabetic adults. Minority populations were underrepresented and children were not included. (Diabetes Care 31:6892-2739, 2008). The eAG is not equivalent to a fasting glucose. Blood 03/17/2025 1:05 PM CDT 03/17/2025 1:05 PM CDT Sagrario Fernandez NP LAB BLOOD ORDERABLES Fi nal Result Performing Organization Address [facility] Co de Phone Number [facility] [address] [place] [address] from Last 3 Months or Most Recently Relevant to Health Maintenance [facility] MED[facility] MEDICARE [facility] IDMS MEDICARE [facility] MEDICARE [facility] Advance Directives For more information, please contact: [phone] * Full Code (Latest Code Status on File) Date Activated Date Inactivated Comments 04/24/2025 3:12 PM 04/26/2025 3:40 PM * Full Code Date Activated Date Inactivated Comments 11/09/2024 2:36 PM 11/12/2024 6:36 PM * Full Code Date Activated Date Inactivated Comments 10/30/2022 5:29 PM 10/31/2022 7:15 PM * Full Code Date Activated Date Inactivated Comments 08/16/2019 9:46 AM 08/16/2019 5:30 PM Care Teams Certification Engineer Relationship Specialty Start Date End Date Fuentes Orellana MD PCP - General 11/28/16 Itz Iyer MD [address] [place] [id number] Consulting Physician Urology 05/31/18 Shawnee Mckinney MD [address] [facility] [address] [place] [address] Referring Physician Urology 06/03/18 Chicho Clayton MD [address] [facility] [address] [place] [address] Medical Oncologist/Hematologis t Medical Oncology 06/07/18 Maria Guadalupe Palacios, RN Registered Nurse 06/10/18 Lupillo Davenport MD Referring Physician Radiation Oncology 06/16/18 Danis Meza NP [address] [facility] [address] [place] [address] Nurse Practitioner Urology 10/06/22 Antonette Owens NP [address] [facility] [address] [place] [address] Nurse Practitioner Cardiovascular Disease 10/06/22 Aniceto Foley MD [id number] [place] [address] Surgeon Vascular Surgery 10/31/22
--- OUTSIDE RECORDS SUMMARY | 2025-07-07 11:52 | XMS_ITS ---
Author Organization [facility] [address] Address [address] [place] [address] Care Team Providers Care Data Reviewer Name Role Phone Fuentes Orellana MD Primary Care Provider Itz Iyer MD Unavailable [phone] Shawnee Mckinney MD Unavailable [phone] Chicho Clayton MD Unavailable Maria Guadalupe Palacios RN Unavailable Unava ilable Lupillo Davenport MD Unavailable [phone] Dnais Meza FLATBED DRIVER Unavailable Antoentte Owens NP Unavailable Aniceto Foley MD Unavailable [...] it is helping. -Follow up with Dr. Johnosn. 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 - Hold home PO diabetic meds while inpatient. Restart at discharge. - Diabetic diet, SSI Assessment & Plan (10/30/2022 9:59 AM SHOT FIREMAN): - A1c 7.6% 10/2022 - SSI while inpatient - CC diet when eating Elevated left ventricular end-diastolic pressure (LVEDP) 11/15/2019 Encounter for surgical after care following surgery of circulatory system 05/20/2019 Prostate cancer 09/10/2018 Assessment & Plan (10/27/2018 9:53 AM SHOT FIREMAN): Follows with urology, has his PSA monitored it is increasing, but still WNL 1.4 Assessment & Plan (09/22/2018 11:35 AM SHOT FIREMAN): Has close follow up with his oncologist. His PSA was slightly elevated on last check. Hyperlipidemia 09/21/2017 Assessment & Plan (06/30/2018 9:38 AM CDT): His last lipid panel was within acceptable range; he will continue on a high intensity statin. Assessment & Plan (09/21/2017 11:34 AM SHOT FIREMAN): Continue Lipitor 40 mg daily. Essential hypertension 07/20/2017 Assessment & Plan (10/30/2022 2:57 PM SHOT FIREMAN): - Tight BP goals post-procedure - Continue home medications as indicated by BP goals as above, staggering overnight for gentle BP control Assessment & Plan (10/27/2018 9:54 AM SHOT FIREMAN): Hypertension is unchanged. Dietary sodium restriction. Blood pressure will be reassessed in 4 weeks. Assessment & Plan (09/22/2018 11:38 AM SHOT FIREMAN): Hypertension remains elevated. He is increasing his [...] today Assessment & Plan (09/21/2017 11:33 AM SHOT FIREMAN): Blood pressure is well controlled today. Last visit we added HCTZ 12.5 mg daily. Continue current medications Assessment & Plan (08/10/2017 11:26 AM SHOT FIREMAN): Blood pressure is not controlled. Add hydrochlorothiazide 12.5 mg p.o. daily. He is compliant with medications but always add salt to food which I advised him not to do that. Assessment & Plan (07/20/2017 9:19 AM SHOT FIREMAN): Blood pressure remains uncontrolled. We will order renal Doppler ultrasound to rule out renal artery stenosis given the fact that he has peripheral vascular disease and coronary artery disease. I will increase amlodipine from 5-10 mg p.o. daily. If that does not control the blood pressure we will add hydrochlorothiazide 12.5 mg p.o. Daily. Coronary artery disease invo lving cowlitz coronary artery of cowlitz heart without angina pectoris 07/20/2017 Assessment & Plan (10/30/2022 9:58 AM SHOT FIREMAN): - Continue home medications as able - Maintained on Brilinta as an outpatient; held 1 week prior to OR - Will discuss with surgery team when to safely resume post-procedure Assessment & Plan (10/27/2018 9:59 AM SHOT FIREMAN): Coronary artery disease is improving with lifestyle modifications. Continue current treatment regimen. Cardiac status will be reassessed in 3 months. No chest pain. Minimal SOB. Continue asa, statin, brilinta Assessment & Plan (09/22/2018 11:36 AM SHOT FIREMAN): Coronary artery disease is unchanged. Regular aerobic [...] BB. Assessment & Plan (09/21/2017 11:33 AM SHOT FIREMAN): Continue aspirin, Brilinta, Toprol XL and atorvastatin. Assessment & Plan (08/10/2017 11:27 AM SHOT FIREMAN): Continue Brilinta and aspirin. Asymptomatic. Assessment & Plan (07/20/2017 9:19 AM SHOT FIREMAN): Continue aspirin, Brilinta, Lipitor , metoprolol PVD [...] plan. Assessment & Plan (10/27/2018 9:21 AM SHOT FIREMAN): S/P bilateral ALVA angioplasty; right EIA angioplasty/stent 11/21/14. S/P aortoiliac angioplasty/stent 05/28/09. Continues on asa, statin and brilinta Assessment & Plan (09/21/2017 11:34 AM SHOT FIREMAN): He follows up with vascular surgery at [facility] Assessment & Plan (08/10/2017 11:27 AM SHOT FIREMAN): Renal ultrasound suggest more than 60% stenosis in the right renal artery and infrarenal stenosis 50-70%. He follows up with Dr. Foley from vascular surgery at [facility] Assessment & Plan (07/20/2017 9:20 AM SHOT FIREMAN): Patient will follow up with Dr. Foley [...] 02/09/2019 Assessment & Plan (10/27/2018 10:17 AM SHOT FIREMAN): Persistent dizziness. Has stopped caffeine intake. Has [...] implant or graft 6 02/09/2019 Atherosclerosis of cowlitz artery of extremity 04/15/20 16 02/09/2019 Assessment & Plan (09/22/2018 11:26 AM SHOT FIREMAN): 80% circumflex s/p RICHARD. Moderate 30 % LAD with bridging Impotence of organic origin 09/18/2015 02/09/2019 Urinary tract infection 01/18/201501/29 Incontinence 01/18/2015 02/09/2019 Stricture, urethra 07/31/2011 9 Overview (12/10/2017): Description: Dilation 06/09/11 Nocturia 11/28/2010 02/09/2019 Hypertension 05/16/2009 02/09/2019 Assessment & Plan (10/27/2018 10:11 AM SHOT FIREMAN): Hypertension is {improving/stable/worsenin}. {plan; hypertension for POC:[id number]} Blood pressure will be reassessed {plan; follow-up 2 weeks/4weeks/3months:[id number]}. Increase amolodipine to 10 mg Continue all [...]
--- OUTSIDE RECORDS SUMMARY | 2025-07-07 11:53 | XMS_ITS | Clinical Summary ---
Author Organization [facility] Address [address] [place] [address] Phone Care Team Providers Care Interlocking Tower Operator Name Role Phone Fuentes Orellana MD Primary Care Provider [phone] Allergies No known active allergies Medications pantoprazole [...] 2025 06/15/2018 Medical Devices Implanted Type Area Transmission Line Engineer Device Identifier Shelf Expiration Date Model / Serial / Lot Ams 800 Urinary Control System(Penile Implant) Description:MRI conditional for 3T or less -danisha 01/04/19 Insurance MEDICARE PART A AND B [facility] [id number] Care Teams Interlocking Tower Operator Relationship Specialty Start Date End Date Fuentes Orellana MD [address] [place] [phone] PCP - General Family Practice 01/04/19
--- OUTSIDE RECORDS SUMMARY | 2025-07-07 11:53 | XMS_ITS | Encounter Summary ---
Author Organization [facility] Address [address] [place] [address] Care Team Providers Care Sfdc Architect Name Role Phone Fuentes Orellana MD Primary Care Provider + [phone] Itz Iyer MD Unavailable [phone] Lupillo Davenport MD Unavailable [phone] Lupillo Davenport MD Unavailable [phone] Shawnee Mckinney MD Unavailable [phone] Chicho Clayton MD Unavailable Newton Weeks MD Unavailable [phone] Maria Guadalupe Palacios RN Unavailable Unava ilable Lupillo Davenport MD Unavailable [phone] Itz Iyer MD Unavailable +[phone] Itz Iyre MD Unavailable +[phone] Itz Iyer MD Unavailable +[phone] Itz Iyer MD Unavailable +[phone] Itz Iyer MD Unavailable [phone] Itz Iyer MD Unavailable [phone] Danis Meza NP Unavailable [phone] Antonette Owens NP Unavailable Aniceto Foley MD Unavailable Encounter Details Date Type Department Care Team (Late st Contact Info) Description 04/12/2018 Orders Only [facility] Health Information Management [address] [place] [address] Scanning, Provider Social History Tobacco Use Types Packs/Day Years Used Date Smoking Tobacco: Never Smokeless Tobacco: Never Alcohol Use Standard Drinks/Week Comments Yes 0 (1 standard drink = 0.6 oz pur e alcohol) Sex and Gender Information Value Date Recorded Sex Assigned at Not on file 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 Gender Identity Not on file Sexual Orientation [...] on filedocumented in this encounter Care Teams Sfdc Architect Relationship Specialty Start Date End Date Fuentes Orellana MD PCP - General 11/28/16 Itz Iyer MD [address] [facility] [address] [place] [address] Consulting Physician Urology 05/31/18 Lupillo Davenport MD [address] [place] [address] Referring Physician Radiation Oncology 05/31/18 Lupillo Davenport MD [address] [place] [address] Referring Physician Radiation Oncology 05/31/18 Shawnee Mckinney MD [address] [facility] [address] [place] [address] Referring Physician Urology 06/03/18 Chicho Clayton MD [address] [facility] [address] [place] [address] Medical Oncologist/Hematologis t Medical Oncology 06/07/18 Newton Weeks MD [address] [facility] [address] [place] [address] Referring Physician Radiation Oncology 06/07/18 Maria Guadalupe Palacios RN Registered Nurse 06/10/18 Lupillo Davenport MD [address] [place] [address] Referring Physician Radiation Oncology 06/16/18 Itz Iyer MD [address] [place] [address] Consulting Physician Urology 06/17/18 06/17/18 Itz Iyer MD [address] [place] [address] Consulting Physician Urology 06/18/18 06/18/18 Itz Iyer MD [address] [address] Consulting Physician Urology 06/18/18 06/18/18 Itz Iyer MD [address] [place] [address], [place] [address] Consulting Physician Urology 06/22/18 06/22/18 Itz Iyer MD [address] [place] [address] Consulting Physician Urology 07/01/18 07/01/18 Itz Iyer MD [address] [place] [address] Consulting Physician Urology 07/06/18 07/06/18 Danis Meza NP [address] [facility] [address] [place] [address] Nurse Practitioner Urology 10/06/22 Antonette Owens NP [address] [facility] [address] [place] [address] Nurse Practitioner Cardiovascular Disease 10/06/22 Aniceto Foley MD [address] [place] [address] Surgeon Vascular Surgery 10/31/22 documented as of this encounter
[2025-07-07 12:38] LABS: NT Pro B Type Natriuretic Pept 154 pg/mL (19.9-100)
== END 2025-07-07 11:14 | disposition home or self-care (01) ==
PROVIDERS: PCP Family Medicine; Visit Provider Physician Assistant Medical
DX: I51.7 Cardiomegaly (principal)
CPT/HCPCS: 36415; 83880

== ENCOUNTER 2025-07-11 13:09 | Outpatient (CLI) | payer MEDICARE, SELFPAY ==
--- OUTSIDE RECORDS SUMMARY | 2025-07-11 13:14 | XMS_ITS | Encounter Summary ---
Author Organization [facility] Address [address] [place] [address] Phone Care Team Providers Care Design Coordinator Name Role Phone Fuentes Orellana MD Primary Care Provider [phone] Itz Iyer MD Unavailable [phone] Lupillo Davenport MD Unavailable [phone] Lupillo Davenport MD Unavailable [phone] Shawnee Mckinney MD Unavailable [phone] Chicho Clayton MD Unavailable Newton Weeks MD Unavailable Maria Guadalupe Palacios RN Unavailable Unava ilable Lupillo Davenport MD Unavailable [phone] Itz Iyer MD Unavailable [phone] Itz Iyer MD Unavailable [phone] Itz Iyer MD Unavailable [phone] Itz Iyer MD Unavailable [phone] Itz Iyer MD Unavailable [phone] Itz Iyer MD Unavailable [phone] Danis Meza DRIVER/REFUSE COLLECTOR Unavailable [phone] Antonette Owens DRIVER/REFUSE COLLECTOR Unavailable Aniceto Foley MD Unavailable [phone] Encounter Details Date Type Department Care [...] on file 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 Gender Identity Not on file Sexual [...] on filedocumented in this encounter Care Teams Design Coordinator Relationship Specialty Start Date End Date Fuentes Orellana MD PCP - General 11/28/16 Itz Iyer MD [address] [facility] [address] [place] [address] Consulting Physician Urology 05/31/18 Lupillo Davenport MD [address] [place] [address] Referring Physician Radiation Oncology 05/31/18 Lupillo Davenport MD [address] [place] [address] Referring Physician Radiation Oncology 05/31/18 Shawnee Mckinney MD [address] [facility] [address] [place] [address] Referring Physician Urology 06/03/18 Chicho Clayton MD [address] [facility] [address] [place] [address] Medical Oncologist/Hematologis t Medical Oncology 06/07/18 Newton Weeks MD [address] [facility] [address] [place] [address] Referring Physician Radiation Oncology 06/07/18 Maria Guadalupe Palacios, RN Registered Nurse 06/10/18 Lupillo Davenport MD [address] [place] [address] [place] [address] Referring Physician Radiation Oncology 06/16/18 Itz Iyer MD [address] [place] [address] Consulting Physician Urology 06/17/18 06/17/18 Itz Iyer MD [address] [address] Consulting Physician Urology 06/18/18 06/18/18 Itz Iyer MD [address] [address] Consulting Physician Urology 06/18/18 06/18/18 Itz Iyer MD [address] [place] [address] Consulting Physician Urology 06/22/18 06/22/18 Itz Iyer MD [address] [place] [address] Consulting Physician Urology 07/01/18 07/01/18 Itz Iyer MD [address] [place] [address] Consulting Physician Urology 07/06/18 07/06/18 Danis Meza NP [address] [place] [address] Nurse Practitioner Urology 10/06/22 Antonette Owens NP [address] [place] [address] Nurse Practitioner Cardiovascular Disease 10/06/22 Aniceto Foley MD [address] [place] [address] Surgeon Vascular Surgery 10/31/22 documented as of this encounter
--- OUTSIDE RECORDS SUMMARY | 2025-07-11 13:14 | XMS_ITS | Encounter Summary ---
Author Organization [facility] Address [address] [place] [address] Phone Care Team Providers Care Floor Mechanic Name Role Phone Fuentes Orellana MD Primary Care Provider [phone] Brent Dickinson DO Unavailable [phone] Faviola Jiménez REQUIREMENTS ENGINEER, FAGOT HEATER Unavailable Shawnee Mckinney MD Unavailable Chicho Clayton MD Unavailable Lai Lambert REQUIREMENTS ENGINEER, FAGOT HEATER Unavailable [phone] Kami Meneses MD Unavailable [phone] Anette Bond MD Unavailable [phone] Kay Gordon REQUIREMENTS ENGINEER, FAGOT HEATER Unavailable Kami Meneses MD Unavailable [phone] Kami Meneses MD Unavailable [phone] Kami Meneses MD Unavailable [phone] Encounter Details Date Type Department Care Team (Late st Contact Info) Description 12/16/2024 Telephone [facility] [address] [place] [address] Kami Meneses MD [address] [place] [address] Social History Tobacco Use Types Packs/Day Years [...] states he sees Dr. Chicho Clayton at [facility] for prostate. * Telephone Encounter - Kami Meneses MD - 12/16/2024 11:45 AM CDT Can you ask the patient who follows him for his prostate cancer? documented in this encounter Plan of Treatment Not on file documented as of this encounter Visit Diagnoses Not on filedocumented in this encounter Care Teams Floor Mechanic Relationship Specialty Start Date End Date Fuentes Orellana MD [address] [address] PCP - General Family Medicine 07/06/15 Brent Dickinson [place] [address] [address] Gastroenterology 06/27/16 Faviola Jiménez APRN, FAGOT HEATER [address] [place] [address] Nurse Practitioner Advanced Practice Nurse 07/22/16 Shawnee Mckinney MD [address] [facility] [address] [place] [address] Urologist Urology 06/07/19 Chicho Clayton MD 4921 [facility] [address] [place] [address] Oncology 06/13/19 Lai Lambert APRN, FAGOT HEATER [address] [place] [address] Nurse Practitioner Advanced Practice Nurse 02/10/23 Kami Meneses MD [address] [address] Consulting Physician Urology 06/16/23 Anette Bond MD [address] [place] [address] Consulting Physician Gastroenterology 12/25/22 Kay Gordon APRN, FAGOT HEATER [address] [place] [address] Nurse Practitioner Advanced Practice Nurse 06/16/24 Kami Meneses MD #[address] [address] Consulting Physician Urology 08/19/24 Kami Meneses MD [address] [facility] [address] [place] [address] Consulting Physician Urology 01/06/25 Kami Meneses MD [address] [facility] [address] [place] [address] Consulting Physician Urology 03/08/25 documented as of this encounter
--- OUTSIDE RECORDS SUMMARY | 2025-07-11 13:14 | XMS_ITS | Encounter Summary ---
Author Organization [facility] Address [address] [facility] [address] [place] [address] Care Team Providers Care Linen Room Attendant Name Role Phone Fuentes Orellana MD Primary Care Provider + [phone] Fuentes Orellana MD Primary Care Provider + [phone] Itz Iyer MD Unavailable [phone] Lupillo Davenport MD Unavailable [phone] Lupillo Davenport MD Unavailable [phone] Shawnee Mckinney MD Unavailable [phone] Chicho Clayton MD Unavailable Newton Weeks MD Unavailable [phone] Maria Guadalupe Palacios RN Unavailable Unava ilable Lupillo Davenport MD Unavailable [phone] Itz Iyer MD Unavailable [phone] Itz Iyer MD Unavailable [phone] Itz Iyer MD Unavailable [phone] Itz Iyer MD Unavailable [phone] Itz Iyer MD Unavailable [phone] Itz Iyer MD Unavailable [phone] Danis Meza PRESS FEEDER BROOMCORN Unavailable [phone] Rater, Antonette PRESS FEEDER BROOMCORN Unavailable Aniceto Foley MD Unavailable [phone] Encounter Details Date Type Department Care Team (Late st Contact Info) Description 11/18/2016 Orders Only [facility] Provider, MD Katie formerly [facility] [place] [address] Social History Tobacco Use Types Packs/Day Years Used Date Smoking Tobacco: Never Assessed Sex and Gender Information Value Date Recorded Sex Assigned at Not on file 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 Gender Identity Not on file Sexual [...] on filedocumented in this encounter Care Teams Linen Room Attendant Relationship Specialty Start Date End Date Fuentes Orellana MD PCP - General 11/28/16 Fuentes Orellana MD PCP - General 07/14/07 11/27/16 Itz Iyer MD [address] [facility] [address] [place] [address] Consulting Physician Urology 05/31/18 Lupillo Davenport MD [address] [place] [address] Referring Physician Radiation Oncology 05/31/18 Lupillo Davenport MD [address] [place] [address] Referring Physician Radiation Oncology 05/31/18 Shawnee Mckinney MD [address] [facility] [address] [place] [address] Referring Physician Urology 06/03/18 Chicho Clayton MD [address] [facility] [address] [place] [address] Medical Oncologist/Hematologis t Medical Oncology 06/07/18 Newton Weeks MD [address] [facility] [address] [place] [address] Referring Physician Radiation Oncology 06/07/18 Maria Guadalupe Palacios, RN Registered Nurse 06/10/18 Lupillo Davenport MD [address] [place] [address] Referring Physician Radiation Oncology 06/16/18 Itz Iyer MD [address] [address] Consulting Physician Urology 06/17/18 06/17/18 Itz Iyer MD [address] [address] Consulting Physician Urology 06/18/18 06/18/18 Itz Iyer MD [address] [place] [address] Consulting Physician Urology 06/18/18 06/18/18 Itz Iyer MD [address] [place] [address] Consulting Physician Urology 06/22/18 06/22/18 Itz Iyer MD [address] [place] [address] Consulting Physician Urology 07/01/18 07/01/18 Itz Iyer MD [address] [place] [address] Consulting Physician Urology 07/06/18 07/06/18 Danis Meza NP [address] [place] [address] Nurse Practitioner Urology 10/06/22 Antonette Owens NP [address] [place] [address] Nurse Practitioner Cardiovascular Disease 10/06/22 Aniceto Foley MD [address] [place] [address] Surgeon Vascular Surgery 10/31/22 documented as of this encounter
--- OUTSIDE RECORDS SUMMARY | 2025-07-11 13:14 | XMS_ITS | Encounter Summary ---
Author Organization [facility] Address [address] [place] [address] Phone Care Team Providers Care Medical Assembly Name Role Phone Fuentes Orellana MD Primary Care Provider + [phone] Itz Iyer MD Unavailable [phone] Shawnee Mckinney MD Unavailable [phone] Chicho Clayton MD Unavailable Maria Guadalupe Palacios RN Unavailable Unava ilable Lupillo Davenport MD Unavailable [phone] Danis Meza PULP OPERATOR Unavailable [phone] Antonette Owens NP Unavailable Aniceto Foley MD Unavailable [phone] Encounter Details Date Type Department Care [...] on file 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 Gender Identity Not on file Sexual Orientation [...] filedocumented in this encounter Care Teams Medical Assembly Relationship Specialty Start Date End Date Fuentes Orellana MD PCP - General 11/28/16 Itz Iyer MD [address] [place] [address] Consulting Physician Urology 05/31/18 Shawnee Mckinney MD [address] [facility] [address] [place] [address] Referring Physician Urology 06/03/18 Chicho Clayton MD [address] [place] [address] Medical Oncologist/Hematologis t Medical Oncology 06/07/18 Maria Guadalupe Palacios, RN Registered Nurse 06/10/18 Lupillo Davenport MD Referring Physician Radiation Oncology 06/16/18 Danis Meza NP [address] [place] [address] Nurse Practitioner Urology 10/06/22 Antonette Owens NP [address] [place] [address] Nurse Practitioner Cardiovascular Disease 10/06/22 Aniceto Foley MD [address] [place] [address] Surgeon Vascular Surgery 10/31/22 documented as of this encounter
--- OUTSIDE RECORDS SUMMARY | 2025-07-11 13:14 | XMS_ITS | Clinical Summary ---
Author Organization [facility] Address [address], [facility] [address] [place] [address] Phone Care Team Providers Care Finished Cloth Checker Name Role Phone Fuentes Orellana MD Primary Care Provider [phone] Brent Dickinson DO Unavailable [phone] Faviola Jiménez LINUX SYSTEM ENGINEER, MOBILE QA TESTER Unavailable Shawnee Mckinney MD Unavailable Chicho Clayton MD Unavailable Lai Lambert LINUX SYSTEM ENGINEER, MOBILE QA TESTER Unavailable [phone] Kami Meneses MD Unavailable [phone] Anette Bond MD Unavailable [phone] Kay Gordon APRN, MOBILE QA TESTER Unavailable Kami Meneses MD Unavailable [phone] Kami Meneses MD Unavailable [phone] Kami Meneses MD Unavailable [phone] Allergies Active Allergy Reactions Criticality Noted [...] 11:15 AM CDT Office Visit [facility] [address] [place] [address] Kami Meneses MD UTI symptoms [...] 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 on file Not on file Not on cory e Last Filed Vital Signs Vital Sign Reading Time Taken Comments Blood Pressure 135/71 04/28/2025 11:05 AM CDT Pulse 97 04/28/2025 11:05 AM CDT Temperature 36.4 C (97.6 F) 08/10/2024 9:53 AM DRIER AND GRINDER TENDER Respiratory Rate 16 04/28/2025 11:05 AM CDT [...] 04/28/2025 PVR= 18 ML Kami Gleason MD [place] - [place] Final Result * COLONOSCOPY (05/24/2020) us Brent Dickinson DO PROCEDURE/MINOR SURGICAL ORDERA BLES Final Result from Last 3 Months or Most Recently Relevant to Health Maintenance Insurance MEDICARE [facility] Care Teams Finished Cloth Checker Relationship Specialty Start Date End Date Fuentes Orellana MD [address] [place] [address] PCP - General Family Medicine 07/06/15 Brent Dickinson DO [address] [address] Gastroenterology 06/27/16 Faviola Jiménez, LINUX SYSTEM ENGINEER, MOBILE QA TESTER [address] [address] Nurse Practitioner Advanced Practice Nurse 07/22/16 Shawnee Mckinney MD [address] [facility] [address] [place] [address] Urologist Urology 06/07/19 Chicho Clayton MD [address] [facility] [address] [place] [address] Oncology 06/13/19 Lai Lambert APRN, MOBILE QA TESTER [address] [place] [address] Nurse Practitioner Advanced Practice Nurse 02/10/23 Kami Meneses MD [address] [facility] [address] [address] Consulting Physician Urology 06/16/23 Anette Bond MD [address] [place] [address] Consulting Physician Gastroenterology 12/25/22 Kay Gordon APRN, MOBILE QA TESTER [address] [place] [address] Nurse Practitioner Advanced Practice Nurse 06/16/24 Kami Meneses MD [address] [address] Consulting Physician Urology 08/19/24 Kami Meneses MD [address] [address] Consulting Physician Urology 01/06/25 Kami Meneses MD [address] [address] Consulting Physician Urology 03/08/25
--- OUTSIDE RECORDS SUMMARY | 2025-07-11 13:14 | XMS_ITS | Encounter Summary ---
Author Organization [facility] Address [address] [place] [address] Care Team Providers Care Waste Management Engineer Name Role Phone Fuentes Orellana MD Primary Care Provider [phone] Itz Iyer MD Unavailable [phone] Shawnee Mckinney MD Unavailable [phone] Chicho Clayton MD Unavailable Maria Guadalupe Palacios RN Unavailable Unava ilable Lupillo Davenport MD Unavailable [phone] Danis Meza TRIGONOMETRY TEACHER Unavailable [phone] Antonette Owens NP Unavailable Aniceto Foley MD Unavailable [phone] Encounter Details Date Type Department Care Team (Late st Contact Info) Description 07/11/2024 Orders Only [facility] [place] Health Information Management [address] [place] [address] Scanning, Provider Social History Tobacco Use Types [...] on file 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 [address] [place] [address] Referring Physician Urology 06/03/18 Chicho Clayton MD [address] [facility] [address] [place] [address] Medical Oncologist/Hematologis t Medical Oncology 06/07/18 Maria Guadalupe Palacios, RN Registered Nurse 06/10/18 Lupillo [place] MD Referring Physician Radiation Oncology 06/16/18 Danis Meza NP [address] [facility] [address] [place] [address] Nurse Practitioner Urology 10/06/22 Antonette Owens NP [address] [facility] [address] [place] [address] Nurse Practitioner Cardiovascular Disease 10/06/22 Aniceto Foley MD [id number] [place] [address] Surgeon Vascular Surgery 10/31/22 documented as of this encounter
--- OUTSIDE RECORDS SUMMARY | 2025-07-11 13:14 | XMS_ITS | Clinical Summary ---
Author Organization [facility] Address [address] [place] [address] Phone Care Team Providers Care Child Study Team Director Name Role Phone Fuentes Orellana MD Primary Care Provider [phone] Allergies No known active allergies Medications pantoprazole [...] 2025 06/15/2018 Medical Devices Implanted Type Area Foundry Technician Device Identifier Shelf Expiration Date Model / Serial / Lot Ams 800 Urinary Control System(Penile Implant) Description:MRI conditional for 3T or less -danisha 01/04/19 Insurance MEDICARE PART A AND B [facility] [id number] Care Teams Child Study Team Director Relationship Specialty Start Date End Date Fuentes Orellana MD [address] [place] [id number] PCP - General Family Practice 01/04/19
--- OUTSIDE RECORDS SUMMARY | 2025-07-11 13:14 | XMS_ITS | Clinical Summary ---
Author Organization [facility] [place] [address] Address [address] [place] [address] Care Team Providers Care Senior Telecommunications Engineer Name Role Phone Fuentes Orellana MD Primary Care Provider Itz Iyer MD Unavailable [phone] Shawnee Mckinney MD Unavailable [phone] Chicho Clayton MD Unavailable Maria Guadalupe Palacios RN Unavailable Unava ilable Lupillo Davenport MD Unavailable [phone] Danis Meza WASTE MANAGEMENT SPECIALIST Unavailable [phone] Antonette Owens NP Unavailable Aniceto Foley MD Unavailable [phone] Allergies Active Allergy Reactions Criticality Noted [...] every morning 1 Active Kerendia 10 mg tabletIndicatio ns:chronic kidney disease associated with type 2 diabetes Take 1 tablet by mouth every morning 4 Active aspirin 81 mg enteric coated tabletIndicatio ns:primary prevention of coronary heart disease Take 1 tablet (81 mg total) by mouth every morning Active chlorthalidone (HYGROTON) 25 mg tabletIndicatio ns:hypertension Take 1 tablet (25 mg total) by mouth every morning Active pantoprazole DR (PROTONIX) 40 mg EC tabletIndicatio ns:Treatment of Non-Bleeding Gastric Disorder Take 1 tablet (40 mg total) by mouth every morning Active linaGLIPtin (TRADJENTA) 5 mg tabletIndicatio ns:type 2 diabetes mellitus Take 1 tablet (5 mg total) by mouth every morning Active glimepiride (AMARYL) 1 mg tabletIndicatio ns:type 2 diabetes mellitus Take 1 tablet (1 mg total) by mouth 2 (two) times a day before breakfast and dinner 5 Active Gvoke HypoPen 2-Pack 1 mg/0.2 mL auto-injector 5 Active rosuvastatin (CRESTOR) 40 mg tablet TAKE 1 TABLET(40 MG) BY MOUTH DAILY 30 tablet 3 5 Active gabapentin (NEURONTIN) 100 mg capsuleIndicati ons:Diabetic Peripheral Neuropathy Take 1 capsule (100 mg [...] needed for pain Active Brilinta 60 mg tabletIndicatio ns:Thrombosis Prevention after PCI Take 1 tablet (60 mg total) by mouth 2 (two) times a day 180 tablet 3 5 Active polyethylene glycol (MIRALAX) 17 gram/dose bulk powderIndicatio ns:constipation Take 17 g by mouth daily 578 g 5 Active Additional Information Patient not taking.Reported on 05/24/2025 amLODIPine (NORVASC) 5 mg tablet TAKE 1 TABLET(5 MG) BY MOUTH DAILY 90 tablet 3 5 Active nitroglycerin (NITROSTAT) 0.3 mg SL tabletIndicatio ns:acute episode of anginal pain Place 1 tablet (0.3 mg total) under the tongue every 5 (five) minutes as needed for chest pain 25 tablet 3 5 05/12/20 26 Active telmisartan (MICARDIS) 80 mg tablet TAKE 1 TABLET(80 MG) BY MOUTH DAILY 90 tablet 3 5 Active metoprolol tartrate (LOPRESSOR) 25 mg immediate release tabletIndicatio ns:Coronary artery disease involving tribal coronary artery of tribal heart without angina pectoris TAKE 1 TABLET(25 MG) BY MOUTH TWICE DAILY 90 tablet 3 5 Active Active Problems Problem Noted Date [...] (10/21/2022): Added automatically from request for surgery [id number] Assessment & Plan (10/30/2022 2:56 PM CUSTOM CLOTHIER): - OR 3/2 for planned R CEA - OU status, Q2h NV/VS monitoring - Bedrest today, OOB/PT POD #1 - SBP goal 100-160, nicardipine for elevated BP - Continue aspirin and statin - Plan to stager home medications and resume overnight 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 - Hold home PO diabetic meds while inpatient. Restart at discharge. - Diabetic diet, SSI Assessment & Plan (10/30/2022 9:59 AM CUSTOM CLOTHIER): - A1c 7.6% 10/2022 - SSI while inpatient - CC diet when eating Elevated left ventricular end-diastolic pressure (LVEDP) 11/15/2019 Encounter for surgical after care following surgery of circulatory system 05/20/2019 Prostate cancer 09/10/2018 Assessment & Plan (10/27/2018 9:53 AM CUSTOM CLOTHIER): Follows with urology, has his PSA monitored it is increasing, but still WNL 1.4 Assessment & Plan (09/22/2018 11:35 AM CUSTOM CLOTHIER): Has close follow up with his oncologist. His PSA was slightly elevated on last check. Hyperlipidemia 09/21/2017 Assessment & Plan (06/30/2018 9:38 AM CDT): His last lipid panel was within acceptable range; he will continue on a high intensity statin. Assessment & Plan (09/21/2017 11:34 AM CUSTOM CLOTHIER): Continue Lipitor 40 mg daily. Essential hypertension 07/20/2017 Assessment & Plan (10/30/2022 2:57 PM CUSTOM CLOTHIER): - Tight BP goals post-procedure - Continue home medications as indicated by BP goals as above, staggering overnight for gentle BP control Assessment & Plan (10/27/2018 9:54 AM CUSTOM CLOTHIER): Hypertension is unchanged. Dietary sodium restriction. Blood pressure will be reassessed in 4 weeks. Assessment & Plan (09/22/2018 11:38 AM CUSTOM CLOTHIER): Hypertension remains elevated. He is increasing his [...] today Assessment & Plan (09/21/2017 11:33 AM CUSTOM CLOTHIER): Blood pressure is well controlled today. Last visit we added HCTZ 12.5 mg daily. Continue current medications Assessment & Plan (08/10/2017 11:26 AM CUSTOM CLOTHIER): Blood pressure is not controlled. Add hydrochlorothiazide 12.5 mg p.o. daily. He is compliant with medications but always add salt to food which I advised him not to do that. Assessment & Plan (07/20/2017 9:19 AM CUSTOM CLOTHIER): Blood pressure remains uncontrolled. We will order renal Doppler ultrasound to rule out renal artery stenosis given the fact that he has peripheral vascular disease and coronary artery disease. I will increase amlodipine from 5-10 mg p.o. daily. If that does not control the blood pressure we will add hydrochlorothiazide 12.5 mg p.o. Daily. Coronary artery disease invo lving tribal coronary artery of tribal heart without angina pectoris 07/20/2017 Assessment & Plan (10/30/2022 9:58 AM CUSTOM CLOTHIER): - Continue home medications as able - Maintained on Brilinta as an outpatient; held 1 week prior to OR - Will discuss with surgery team when to safely resume post-procedure Assessment & Plan (10/27/2018 9:59 AM CUSTOM CLOTHIER): Coronary artery disease is improving with lifestyle modifications. Continue current treatment regimen. Cardiac status will be reassessed in 3 months. No chest pain. Minimal SOB. Continue asa, statin, brilinta Assessment & Plan (09/22/2018 11:36 AM CUSTOM CLOTHIER): Coronary artery disease is unchanged. Regular aerobic [...] BB. Assessment & Plan (09/21/2017 11:33 AM CUSTOM CLOTHIER): Continue aspirin, Brilinta, Toprol XL and atorvastatin. Assessment & Plan (08/10/2017 11:27 AM CUSTOM CLOTHIER): Continue Brilinta and aspirin. Asymptomatic. Assessment & Plan (07/20/2017 9:19 AM CUSTOM CLOTHIER): Continue aspirin, Brilinta, Lipitor , metoprolol PVD [...] plan. Assessment & Plan (10/27/2018 9:21 AM CUSTOM CLOTHIER): S/P bilateral ALVA angioplasty; right EIA angioplasty/stent 11/21/14. S/P aortoiliac angioplasty/stent 05/28/09. Continues on asa, statin and brilinta Assessment & Plan (09/21/2017 11:34 AM CUSTOM CLOTHIER): He follows up with vascular surgery at [facility] Assessment & Plan (08/10/2017 11:27 AM CUSTOM CLOTHIER): Renal ultrasound suggest more than 60% stenosis in the right renal artery and infrarenal stenosis 50-70%. He follows up with Dr. Foley from vascular surgery at [facility] Assessment & Plan (07/20/2017 9:20 AM CUSTOM CLOTHIER): Patient will follow up with Dr. Foley [...] urology to completely deactivate which was done. -04/24PM: issues with retention. Urology called back. re-activate the patient's AUS and then deactivate it once more. This was confirmed with a persistent dimple in the AUS pump --straigth cath x1. Persistent retention so mcgrath was placed -call urology back to determine plan Resolved Problems Problem Noted Date Diagnosed Date Resolved Date Dizzinesses 10/27/2018 02/09/2019 Assessment & Plan (10/27/2018 10:17 AM CUSTOM CLOTHIER): Persistent dizziness. Has stopped caffeine intake. Has [...] implant or graft 6 02/09/2019 Atherosclerosis of tribal artery of extremity 04/15/20 16 02/09/2019 Assessment & Plan (09/22/2018 11:26 AM CUSTOM CLOTHIER): 80% circumflex s/p RICHARD. Moderate 30 % LAD with bridging Impotence of organic origin 09/18/2015 02/09/2019 Urinary tract infection 01/18/201501/29 Incontinence 01/18/2015 02/09/2019 Stricture, urethra 07/31/2011 9 Overview (12/10/2017): Description: Dilation 06/09/11 Nocturia 11/28/2010 02/09/2019 Hypertension 05/16/2009 02/09/2019 Assessment & Plan (10/27/2018 10:11 AM CUSTOM CLOTHIER): Hypertension is {improving/stable/worsenin}. {plan; hypertension for POC:[id number]} Blood pressure will be reassessed {plan; follow-up 2 weeks/4weeks/3months:[id number]}. Increase amolodipine to 10 mg Continue all [...] - 06/30/2025 11:59 PM CDT Hospital Encounter [facility] Medical Office Building [address] [place] [address] Microscopic hematuria Discharge Disposition: Discharge to home or self care 06/23/2025 Community Orders [facility] EpicCare Link Kami Meneses MD Microscopic hematuria (Primary Dx); Pelvic pain 05/24/2025 11:45 AM CDT Office Visit [facility] Medicine Surgery [facility] 8th [place] [address] [place] [address] Aniceto Foley MD Atherosclerosis of tribal arteries of extremities with intermittent claudication, bilateral legs (Primary Dx) 05/24/2025 11:00 AM CDT Ancillary Procedure [facility] Medicine Vascular Lab at the [address] [place] [address] [place] [address] Encounter for surgical aftercare following surgery on the circulatory system 05/24/2025 10:15 AM CDT Ancillary Procedure [facility] Medicine Vascular Lab at the [place] [address] [facility] 8th [place] [address] [place] [phone] Atherosclerosis of tribal arteries of extremities with intermittent claudication, right leg 05/18/2025 Orders Only [facility] Vascular Surgery [address] [place] [address] Office [address] [place] [phone] Aniceto Foley MD Encounter for surgical aftercare following surgery on the circulatory system (Primary Dx) 05/12/2025 10:00 AM CDT Office Visit [facility] Cardiology [address] [place] [phone] Kay Ward NP Coronary artery disease of tribal artery of tribal heart with stable angina pectoris; Essential hypertension; LVH (left ventricular hypertrophy); PVD (peripheral vascular disease) 05/09/2025 Telephone [facility] Cardiology [address] [place] [phone] Kay Ward NP 04/24/2025 8:30 AM CDT - 04/24/2025 11:45 AM CDT Surgery [facility] Operating Room 1 [place] [address] Aniceto Foley MD ANGIOGRAM - HYBRID ROOM aorto iliac angiogram 04/24/2025 8:30 AM CDT Anesthesia Event [facility] Operating Room 1 [place] [address] Yuko Rodriguez MD [place], Cheryl Renee Hill, NP 04/24/2025 6:23 AM CDT - 04/26/2025 11:35 AM CDT Hospital Encounter [address] [address] Aniceto Foley MD PAD (peripheral artery disease) Discharge Disposition: Discharge to home or self care 04/21/2025 Telephone [facility] Vascular Surgery [address] [place] [address] Office Building [address] [place] [phone] Aniceto Foley MD from Last 3 Months [...] INTRAOCULAR LENS IMPLANT Right 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 More than 4 times per year 11/11/2024 Do you belong to any clubs o r organizations such as jainism groups, unions, fraternal or athletic groups, or [...] any time in the past 12 m [facility], were you homeless or living in a fdc (including now)? No 11/11/2024 AUDIT-C Answer Date [...] on file Legal Sex Male 12:32 AM CUSTOM CLOTHIER Gender Identity Not on file Sexual Orientation [...] history exists Medical Devices Implanted Type Area Bit Shaver Device Identifier Shelf Expiration Date Model / Serial / Lot Other - See Comments-05/17/20 Implanted:2014 (Quantity not on file) Other - see comments Bladder Description:Bladder control Stent Stent Bilateral: Groin Description:Per pt 4-5 stent s Stent Stent N/A: Heart [employer] Sandra Express Ld Tandem Architecture 8mm 17mm 135cm Otw [place] [id number] - [id number] Implanted:Qty: 1 on 04/24/2025 by Aniceto Foley MD at [facility] Stent N/A: Infrarenal Aorta [employer] Sandra [id number] 10/12/2026 [id number] / / [id number] [employer] Stent Graft Endoprosthesis Reduced Profile Straight Heparin Coated Viabahn [id number] - [id number] - [id number] Implanted:Qty: 1 on 04/24/2025 by Aniceto Foley MD at [facility] Stent N/A: Infrarenal Aorta [employer] [id number] 08/05/2027 [id number] / [id number] / [employer] Stent Graft Endoprosthesis Reduced Profile Straight Heparin Coated Viabahn [id number] - [id number] - [id number] Implanted:Qty: 1 on 04/24/2025 by Aniceto Foley MD at [facility] Stent Right: Iliac [employer] [id number] 10/02/2027 [id number] / [id number] / [employer] Stent Graft Endoprosthesis Reduced Profile Straight Heparin Coated Viabahn [id number] - [id number] - [id number] Implanted:Qty: 1 on 04/24/2025 by Aniceto Foley MD at [facility] Stent Left: Iliac [employer] [id number] 07/31/2027 [id number] / [id number] / [employer] Stent Graft Endoprosthesis Reduced Profile Straight Heparin Coated Viabahn [id number] - [id number] - [id number] Implanted:Qty: 1 on 04/24/2025 by Aniceto Foley MD at [facility] Stent Right: External Iliac Artery [employer] [id number] 09/21/2027 [id number] / [id number] / W[employer] Stent Graft Endoprosthesis Reduced Profile Straight Heparin Coated Viabahn [id number] - [id number] - [id number] Implanted:Qty: 1 on 04/24/2025 by Aniceto Foley MD at [facility] Stent Right: Iliac [employer] [id number] 11/07/2027 [id number] / [id number] / [employer] Device Vascular Closure Femoral Artery Bioabsorbable Dual Method Vascade 6-7fr Collagen [id number] - [id number] Implanted:Qty: 1 on 04/24/2025 by Arturo Hopkins MD at [facility] Vascular Closure Device Right: Groin [employer] [id number] 01/16/2027 [id number]- [id number] / / [id number] [employer] Device Vascular Closure Femoral Artery Bioabsorbable Dual Method Vascade 6-7fr Collagen [id number] - [id number] Implanted:Qty: 1 on 04/24/2025 by Arturo Hopkins MD at [facility] Vascular Closure Device Left: Groin [employer] [id number] 01/16/2027 [id number]- 05U / / Stent Right: Eye Artificail Urinary Sphincter-05/08/20 15 Implanted:2014 by Shawnee Mckinney MD (Quantity not on file) N/A: Urethra Description:05/08/2019 Placeme nt of artificial urinary sphincter with a 3.5 cm cuff and 61 to 70 cm pressure-regulating balloon. Modafirma Vascu-Guard 8x.8cm Peripheral Patch Vascular Bovine Pericardium Vg-[id number] - [id number] Implanted:Qty: 1 on 10/30/2022 by Aniceto Foley MD at [facility] Right: Carotid [place] E[employer]ka [id number] 07/09/2023 [id number]-[id number] / / [id number] [employer] Sandra Ams 800 Kit Accessory Sterile Disposable Latex Free Urinary [id number] - [id number] Implanted:Qty: 1 on 11/09/2024 by Kami Meneses MD at [facility] N/A: Urethra [employer] Sandra [id number] 03/09/2029 [id number] / / [id number] [employer] Sandra Cuff Urethral Ams 800 Inhibizone 3.5cm [id number] - [id number] Implanted:Qty: 1 on 11/09/2024 by Kami Meneses MD at [facility] N/A: Urethra [employer] Sandra [id number] 02/22/2026 [id number] / / [id number] [employer] Sandra Ams 800 Pressure Balloon Sphincter 61-70cu Cm Implant Urological [id number] - [id number] Implanted:Qty: 1 on 11/09/2024 by Kami Meneses MD at [facility] N/A: Abdomen [employer] Sandra [id number] 03/20/2029 [id number] / / [id number] [employer] Sandra Ams 800 Control Pump Sphincter Implant Urological Inhibizone [id number] - [id number] Implanted:Qty: 1 on 11/09/2024 by Kami Meneses MD at [facility] N/A: Scrotum [employer] Sandra [id number] 02/15/2026 [id number] / / [id number] Procedures Procedure Name Priority Date/Time Associated [...] Routine) 05/24/2025 10:37 AM CDT Atherosclerosis of tribal arteries of extremities with intermittent claudication, right leg US ARTERIAL DOPPLER LOWER EXTREMITY BILATERAL Schedule Routine, Read Routine (OP Routine) 05/24/2025 10:37 AM CDT Atherosclerosis of tribal arteries of extremities with intermittent claudication, right [...] disease) PERCUTANEOUS CORONARY LITHROTRIPSY W/ PCI (+) 98553 Routine 04/24/2025 11:50 AM CDT PAD (peripheral [...] CHEMISTRIES, ARTERIAL Routine 04/24/2025 9:41 AM CDT [place] AN PROCEDURE PLACEHOLDER Routine 04/24/2025 9:20 AM CDT [place] AN PROCEDURE PLACEHOLDER Routine 04/24/2025 9:19 AM CDT [place] AN PROCEDURE PLACEHOLDER Routine 04/24/2025 9:18 AM CDT [place] AN PROCEDURE PLACEHOLDER Routine 04/24/2025 8:50 AM CDT [place] AN ELECTIVE ENDOTRACHEAL AIRWAY Routine 04/24/2025 8:50 [...] - 1.30 mg/dL Comment:Testing performed by : [facility], [address] [place] [address]., [id number] Blood 06/30/2025 11:0 0 AM CDT 06/30/2025 11:00 AM CDT Kami Gleason MD POINT OF CARE TEST ORDERABLES Final Result D[facility] [address] [facility] Department [place] [address] * US Duplex Scan of Aorta; Inferior Vena Cava, Iliac, Limited or Unilateral (05/24/2025 10:38 AM CDT) Anatomical Region Laterality Modality Vascular Ultrasound 05/24/2025 10:0 6 AM CDT Narrative 05/24/2025 11:40 AM CDT [facility] - Department of Vascular Surgery, Vascular Laboratory [address] [place] [address] Abdominal Aortic Duplex Ultrasound Report Patient Name: RIVERA FREEMAN : 1950 Study Date: 05/24/2025 10:06:21 AM Sex: M Tech: TT Location: [facility] Ref Provider: ANICETO FOLEY Quality: Adequate [...] Value Units Arteries Value Units FINDINGS: Performing Rhia: Jay Hutson RVT. Study Quality: Limited. Abdominal [...] Procedure Note Thomas Gupta MD - 05/24/2025 [facility] - Department of Vascular Surgery,Vascular Laboratory [address] [place] [address] Abdominal Aortic Duplex Ultrasound Report Patient Name: RIVERA FREEMAN : 1950 Study Date: 05/24/2025 10:06:21 AM Sex: M Tech: Location: [facility] Provider: ANICETO FOLEY Quality: Adequate Order Provider: [...] Value Units Arteries Value Units FINDINGS: Performing Rhia: Jay Hutson RVT. Study Quality: Limited. Abdominal [...] AM CDT Narrative 05/24/2025 11:40 AM CDT [facility] - Department of Vascular Surgery, Vascular Laboratory [address] [place] [address] [place] Lower Extremity Arterial Duplex Report Patient Name: RIVERA FREEMAN : 1950 Study Date: 05/24/2025 9:42:26 AM Sex: M Tech: TT Location: [facility] Provider: ANICETO FOLEY Quality: Adequate Order Provider: ANICETO FOLEY PROCEDURES: Arterial Report: Right Lower Extremity Arterial Duplex Exam. INDICATIONS: I70.211 Atherosclerosis of tribal arteries of extremities with intermittent claudication, right leg. MEASUREMENTS: Right Value Units Rt GRILL COOK Dst PSV 180 cm/s Rt Profunda Prx PSV 184 cm/s Rt Superficial Femoral Prx PSV 189 cm/s Rt Superficial Femoral Mid PSV 79 cm/s Rt Superficial Femoral Dst PSV 94 cm/s Rt Pop Prx PSV 60 cm/s Rt Post Tibial Mid PSV 34 cm/s Rt Ant Tibial Mid PSV 55 cm/s Rt Peroneal Mid PSV 56 cm/s Right Value Units FINDINGS: Performing Rhia: Jay Hutson RVT. Right Common Femoral: The [...] Duplex imaging of the right lower extremity tribal arteries reveals patent vessels with no flow [...] Procedure Note Thomas Gupta MD - 05/24/2025 [facility] - Department of Vascular Surgery,Vascular Laboratory [address] [place] [address] [place] Lower Extremity Arterial Duplex Report Patient Name: RIVERA FREEMAN : 1950 Study Date: 05/24/2025 9:42:26 AM Sex: M Tech: TT Location: [facility] Provider: ANICETO FOLEY Quality: Adequate Order Provider: ANICETO FOLEY PROCEDURES: Arterial Report: Right Lower Extremity Arterial Duplex Exam. INDICATIONS: I70.211 Atherosclerosis of tribal arteries of extremities withintermittent claudication, right leg. MEASUREMENTS: Right Value Units Rt GRILL COOK Dst PSV 180 cm/s Rt Profunda Prx PSV 184 cm/s Rt Superficial Femoral Prx PSV 189 cm/s Rt Superficial Femoral Mid PSV 79 cm/s Rt Superficial Femoral Dst PSV 94 cm/s Rt Pop Prx PSV 60 cm/s Rt Post Tibial Mid PSV 34 cm/s Rt Ant Tibial Mid PSV 55 cm/s Rt Peroneal Mid PSV 56 cm/s Right Value Units FINDINGS: Performing Rhia: Jay Hutson RVT. Right Common Femoral: The [...] Duplex imaging of the right lower extremity tribal arteries revealspatent vessels with no flow limiting [...] above. Electronically Signed By: Thomas Gupta MD [facility] 05/24/2025 11:08:37 AM CDT us Aniceto Foley MD IMG US PROCEDURES Final Resul t * US Arterial Doppler Lower Extremity Bilateral (05/24/2025 10:37 AM CDT) Anatomical Region Laterality Modality Vascular Bilateral Ultrasound 05/24/2025 9:45 AM CDT Narrative 05/24/2025 11:40 AM CDT [facility] - Department of Vascular Surgery, Vascular Laboratory [address] [place] [address] Lower Extremity Arterial Doppler Report Patient Name: RIVERA FREEMAN : 1950 Study Date: 05/24/2025 9:45:00 AM Sex: M Tech: Jay Hutson [facility] Location: [facility] Provider: ANICETO FOLEY Quality: Adequate Order Provider: ANICETO FOLEY PROCEDURES: Arterial Report: Bilateral lower extremity arterial Doppler exam at rest. INDICATIONS: I70.211 Atherosclerosis of tribal arteries of extremities with intermittent claudication, right leg. MEASUREMENTS: Right Value Units Left Value Units Rt Brachial Pressure 150 mmHg Lt Brachial Pressure 151 mmHg Rt CREDIT PRODUCT ANALYST Pressure 141 mmHg Lt CREDIT PRODUCT ANALYST Pressure 141 mmHg Rt DPA Pressure 139 mmHg Lt DPA Pressure 114 mmHg Rt 1st Digit Pressure 91 mmHg Lt 1st Digit Pressure 105 mmHg Rt PT TORREY Resting 0.93 Lt PT TORREY Resting 0.93 Rt AT TORREY Resting 0.92 Lt AT TORREY Resting 0.75 Rt Digit/Arm Index 0.6 Lt Digit/Arm Index 0.7 Right Value Units Left Value Units FINDINGS: Performing Rhia: Jay Hutson RVT. Right All Levels: The [...] Procedure Note Thomas Gupta MD - 05/24/2025 [facility] - Department of Vascular Surgery,Vascular Laboratory [address] [place] [address] Lower Extremity Arterial Doppler Report Patient Name: RIVERA FREEMAN : 1950 Study Date: 05/24/2025 9:45:00 AM Sex: M Tech: Jay Hutson RVT Location: [facility] Provider: ANICETO FOLEY Quality: Adequate Order Provider: ANICETO FOLEY PROCEDURES: Arterial Report: Bilateral lower extremity arterial Doppler exam at rest. INDICATIONS: I70.211 Atherosclerosis of tribal arteries of extremities withintermittent claudication, right leg. MEASUREMENTS: Right Value Units Left Value Units Rt Brachial Pressure 150 mmHg Lt Brachial Pressure 151 mmHg Rt CREDIT PRODUCT ANALYST Pressure 141 mmHg Lt CREDIT PRODUCT ANALYST Pressure 141 mmHg Rt DPA Pressure 139 mmHg Lt DPA Pressure 114 mmHg Rt 1st Digit Pressure 91 mmHg Lt 1st Digit Pressure 105 mmHg Rt PT TORREY Resting 0.93 Lt PT TORREY Resting 0.93 Rt AT TORREY Resting 0.92 Lt AT TORREY Resting 0.75 Rt Digit/Arm Index 0.6 Lt Digit/Arm Index 0.7 Right Value Units Left Value Units FINDINGS: Performing Rhia: Jay Hutson RVT. Right All Levels: The [...] Gupta MD FACS 05/24/2025 11:11:06 AM CDT Aniceto Foley MD IMG US PROCEDURES Final Resul t * ECG 12 lead (05/12/2025 12:03 PM CDT) Kay Ward WASTE MANAGEMENT SPECIALIST ECG ORDERABLES Final Res ult * POCT glucose (04/26/2025 8:01 AM CDT) Glucose, POC 151 70 - 199 mg/dL Blood 04/26/2025 8:01 AM CDT 04/26/2025 8:01 AM CDT us Aniceto Foley MD LAB POCT ORDERABLES - DEVICE Final Result Performing Organization Address [facility] de Phone Number [facility] [place] [address] * POCT glucose (04/25/2025 8:32 PM CDT) Glucose, POC 197 70 - 199 mg/dL Blood 04/25/2025 8:32 PM CDT 04/25/2025 8:32 PM CDT us Aniceto Foley MD LAB POCT ORDERABLES - DEVICE Final Result Performing Organization Address [facility] de Phone Number [facility] [place] [address] * POCT glucose (04/25/2025 5:11 PM CDT) Glucose, POC 160 70 - 199 mg/dL Comment:Glu2: RN/ Notified Glucose comment 1 Glu2: RN/ Notified [facility] Blood 04/25/2025 5:11 PM CDT 04/25/2025 5:11 PM CDT us Aniceto Foley MD LAB POCT ORDERABLES - DEVICE Final Result Performing Organization Address [facility] de Phone Number [facility] [place] [address] * POCT glucose (04/25/2025 11:30 AM CDT) Glucose, POC 174 70 - 199 mg/dL Comment:Glu2: RN/ Notified Glucose comment 1 Glu2: RN/ Notified [facility] Blood 04/25/2025 11:3 0 AM CDT 04/25/2025 11:30 AM CDT us Aniceto Foley MD LAB POCT ORDERABLES - DEVICE Final Result Performing Organization Address City/[facility] Co de Phone Number [facility] [place] [address] * POCT glucose (04/25/2025 7:30 AM CDT) Glucose, POC 121 70 - 199 mg/dL Comment:Glu2: BARAK/ Notified Glucose comment 1 Glu2: BARAK/ Notified [facility] Blood 04/25/2025 7:30 AM CDT 04/25/2025 7:30 AM CDT us Aniceto Foley MD LAB POCT ORDERABLES - DEVICE Final Result Performing Organization Address [facility] de Phone Number [facility] [place] [address] * (ABNORMAL) eGFR (04/25/2025 1:25 AM CDT) [...] ORDERABLES Final Re sult Performing Organization Address City/[facility]/ZIP Co de Phone Number [facility] [place] [address] * (ABNORMAL) CBC without differential (04/25/2025 1:25 AM CDT) WBC 7.83 3.80 - 9.90 K/cumm Hgb 9.7(L) 13.0 - 17.5 g/dL [facility] Hct 29.1(L) 38.9 - 50.3 % [facility] Plt 151 150 - 400 K/cumm [facility] MPV 11.1 9.1 - 12.3 fL [facility] RBC 3.13(L) 4.30 - 5.80 M/cumm [facility] MCV 93.0 81.3 - 96.4 fL [facility] MCH 31.0 27.1 - 33.3 pg [facility] MCHC 33.3 32.3 - 35.7 g/dL [facility] RDW CV 15.3(H) 11.1 - 14.9 % [facility] RDW SD 51.3(H) 35.7 - 48.1 fL [facility] NRBC abs 0.00 0.00 - 0.01 K/cumm [facility] Blood 04/25/2025 1:25 AM CDT 04/25/2025 1:53 AM CDT Aniceto Foley MD LAB BLOOD ORDERABLES Final Re sult Performing Organization Address City/[facility]/ZIP Co de Phone Number [facility] [place] [address] * (ABNORMAL) Basic metabolic panel (04/25/2025 1:25 AM CDT) Pathologist [facility] Sodium 145 135 - 145 mmol/L Potassium, pl 4.4 3.3 - 4.9 mmol/L [facility] Chloride 111(H) 97 - 110 mmol/L [facility] CO2 27 22 - 32 mmol/L [facility] Anion gap 7 2 - 15 mmol/L [facility] BUN 27(H) 6 - 25 mg/dL [facility] Creatinine 1.36(H) 0.80 - 1.30 mg/dL [facility] Glucose 107 70 - 199 mg/dL [facility] Comment: Interpretive Data Fasting glucose >/= [...] Calcium 10.1 8.5 - 10.3 mg/dL [facility] Blood 04/25/2025 1:25 AM CDT 04/25/2025 1:51 AM CDT us Aniceto Foley MD LAB BLOOD ORDERABLES Final Re sult [facility] [place] [address] * POCT glucose (04/24/2025 8:19 PM CDT) Pathologist [facility] Glucose, POC 112 70 - 199 mg/dL Blood 04/24/2025 8:19 PM CDT 04/24/2025 8:19 PM CDT us Aniceto Foley MD LAB POCT ORDERABLES - DEVICE Final Result Performing Organization Address [facility] Co de Phone Number [facility] [place] [address] * POCT glucose (04/24/2025 4:59 PM CDT) [facility] Glucose, POC 136 70 - 199 mg/dL Comment:Glu2: RN/MD Notified Glucose comment 1 Glu2: RN/MD Notified [facility] Blood 04/24/2025 4:59 PM CDT 04/24/2025 4:59 PM CDT Aniceto Foley MD LAB POCT ORDERABLES - DEVICE Final Result Performing Organization Address [facility] de Phone Number [facility] [place] [address] * (ABNORMAL) eGFR (04/24/2025 12:22 PM CDT) [facility] eGFR 58(L) >=60 mL/min/1. 73 m2 Comment: [...] ORDERABLES Final Re sult Performing Organization Address [facility]/ZIP Co de Phone Number [facility] [place] [address] * (ABNORMAL) CBC without differential (04/24/2025 12:22 PM CDT) Pathologist [facility] WBC 4.97 3.80 - 9.90 K/cumm Hgb 9.4(L) 13.0 - 17.5 g/dL [facility] Hct 28.9(L) 38.9 - 50.3 % [facility] Plt 141(L) 150 - 400 K/cumm [facility] MPV 11.2 9.1 - 12.3 fL [facility] RBC 3.09(L) 4.30 - 5.80 M/cumm [facility] MCV 93.5 81.3 - 96.4 fL [facility] MCH 30.4 27.1 - 33.3 pg [facility] MCHC 32.5 32.3 - 35.7 g/dL [facility] RDW CV 15.2(H) 11.1 - 14.9 % [facility] RDW SD 51.5(H) 35.7 - 48.1 fL [facility] NRBC abs 0.00 0.00 - 0.01 K/cumm [facility] Blood 04/24/2025 12:2 2 PM CDT 04/24/2025 12:39 PM CDT us Aniceto Foley MD LAB BLOOD ORDERABLES Final Re sult [facility] [place] [address] * Lipid panel (04/24/2025 12:22 PM CDT) Pathologist [facility] Cholesterol 135 30 - 199 mg/dL Comment: [...] on 2018. Triglycerides 75 <=149 mg/dL [facility] Comment: Interpretive Data Ages < or [...] on 2018. HDL 42 >=40 mg/dL [facility] Comment: Interpretive Data Ages < or [...] 2018. LDL, calculated 78 <=129 mg/dL [facility] Comment: Interpretive Data Ages < or = 19 years Acceptable: <110 mg/dL Borderline high: 110-129 mg/dL High: >or= 130 mg/dL Ages > or = 20 years Optimal: <100 mg/dL Near optimal: 100-129 mg/dL Borderline high: 130-159 mg/dL High: >160 mg/dL Calculated using the Martinez LDL-C estimating equation. This equation was implemented on 2024. Prior to this date LDL-C was estimated using the Friedewald equation. Literature References: 1. Expert Panel on Integrated Guidelines for Cardiovascular Health and Risk Reduction in Children and Adolescents. Pediatrics 2011;128:S213 2. NCEP Expert Panel. Circulation 2004;110:227 3. Juan Martinez et al. BENJAMIN Cardiol. 2019December 29;5(5):540-548. doi: 10.1001/jamacardio.2020.0013 Current Interpretive Data was last revised on 2024. Non-HDL Cholesterol 93 mg/dL [facility] Comment: Interpretive Data Ages < or [...] revised on 2018. Chol/HDL ratio 3 [facility] Blood 04/24/2025 12:2 2 PM CDT 04/24/2025 12:39 PM CDT us Aniceto Foley MD LAB BLOOD ORDERABLES Final Re sult [facility] [place] [address] * (ABNORMAL) Basic metabolic panel (04/24/2025 12:22 PM CDT) Sodium 140 135 - 145 mmol/L Potassium, pl 4.3 3.3 - 4.9 mmol/L [facility] Chloride 108 97 - 110 mmol/L [facility] CO2 26 22 - 32 mmol/L [facility] Anion gap 6 2 - 15 mmol/L [facility] BUN 32(H) 6 - 25 mg/dL [facility] Creatinine 1.29 0.80 - 1.30 mg/dL [facility] Glucose 117 70 - 199 mg/dL [facility] Comment: Interpretive Data Fasting glucose >/= [...] Calcium 9.9 8.5 - 10.3 mg/dL [facility] Blood 04/24/2025 12:2 2 PM CDT 04/24/2025 12:39 PM CDT us Aniceto Foley MD LAB BLOOD ORDERABLES Final Re sult Performing Organization Address City/[facility]/ZIP Co de Phone Number [facility] [place] [address] * POCT glucose (04/24/2025 12:11 PM CDT) [facility] Signature Glucose, POC 121 70 - 199 mg/dL Blood 04/24/2025 12:1 1 PM CDT 04/24/2025 12:11 PM CDT us Aniceto Foley MD LAB POCT ORDERABLES - DEVICE Final Result Performing Organization Address City/[facility]/ZIP Co de Phone Number [facility] [place] [address] * ANGIOGRAM - HYBRID ROOM, PLACEMENT STENT - ILIAC ARTERY - HYBRID ROOM (04/24/2025 11:50 AM CDT) Anatomical Region Laterality Modality X-Ray Angiograph y Narrative 04/24/2025 3:00 PM CDT Please see OpNote for result. us Aniceto Foley MD SURGICAL CASE ORDERS Final Re sult * ANGIOPLASTY BALLOON/STENT PLACEMENT, PERCUTANEOUS CORONARY LITHROTRIPSY W/ PCI (+) [id number] (04/24/2025 11:50 AM CDT) Anatomical Region Laterality Modality X-Ray Angiograph y Narrative 04/24/2025 3:00 PM CDT Please see OpNote for result. us Aniceto Foley MD CV CARDIAC CATH PROCEDURES Fi nal Result * POCT Activated clotting time, low range (04/24/2025 11:25 AM CDT) ACT 133 123 - 168 sec POC Device Number [id number] [facility] Blood 04/24/2025 11:2 5 AM CDT 04/24/2025 11:25 AM CDT us Aniceto Foley MD LAB POCT ORDERABLES - DEVICE Final Result Performing Organization Address [facility]/ZIP Co de Phone Number [facility] [place] [address] * (ABNORMAL) POCT Activated clotting time, low range (04/24/2025 11:19 AM CDT) ACT 253(H) 123 - 168 sec POC Device Number [id number] [facility] Blood 04/24/2025 11:1 9 AM CDT 04/24/2025 11:19 AM CDT us Aniceto Foley MD LAB POCT ORDERABLES - DEVICE Final Result [facility] [place] [address] * (ABNORMAL) POCT Activated clotting time, low range (04/24/2025 10:59 AM CDT) ACT 265(H) 123 - 168 sec POC Device Number [id number] [facility] Blood 04/24/2025 10:5 9 AM CDT 04/24/2025 10:59 AM CDT us Aniceto Foley MD LAB POCT ORDERABLES - DEVICE Final Result Performing Organization Address [facility] de Phone Number [facility] [place] [address] * (ABNORMAL) POCT Activated clotting time, low range (04/24/2025 10:33 AM CDT) ACT 253(H) 123 - 168 sec POC Device Number [id number] [facility] Blood 04/24/2025 10:3 3 AM CDT 04/24/2025 10:33 AM CDT us Aniceto Foley MD LAB POCT ORDERABLES - DEVICE Final Result Performing Organization Address [facility] de Phone Number [facility] [place] [address] * (ABNORMAL) POCT Activated clotting time, low range (04/24/2025 10:00 AM CDT) ACT 260(H) 123 - 168 sec POC Device Number [id number] [facility] Blood 04/24/2025 10:0 0 AM CDT 04/24/2025 10:00 AM CDT us Aniceto Foley MD LAB POCT ORDERABLES - DEVICE Final Result Performing Organization Address [facility] de Phone Number [facility] [place] [address] * (ABNORMAL) POCT Activated clotting time, low range (04/24/2025 9:48 AM CDT) ACT 213(H) 123 - 168 sec POC Device Number [id number] [facility] Blood 04/24/2025 9:48 AM CDT 04/24/2025 9:48 AM CDT us Aniceto Foley MD LAB POCT ORDERABLES - DEVICE Final Result [facility] Department [place] [address] * (ABNORMAL) POC Blood Gas and Chemistries, Arterial - (04/24/2025 9:41 AM CDT) pH, Art POC 7.45 7.35 - 7.45 pCO2, Art POC 36 35 - 45 mmHg [facility] pO2, Art POC 190(H) 83 - 108 mmHg [facility] Na, POC 141 135 - 145 mmol/L [facility] POC 4.5 3.3 - 4.9 mmol/L [facility] Comment: Interpretive Data Not all point of care methods assess for hemolysis. Confirm with instrument and retest K+ if not consistent with clinical signs and symptoms. Current Interpretive Data was last revised on 2023. Cl, POC 113(H) 97 - 110 mmol/L [facility] Ionized Ca, POC 5.78(H) 4.50 - 5.10 mg/dL [facility] Glucose, POC 136 70 - 199 mg/dL [facility] Lactate POC 1.1 0.7 - 2.0 mmol/L [facility] SO2 (samuel) arterial 99(H) 90 - 95 % [facility] Base excess, POC 1.1 mmol/L [facility] HCO3, Art POC 26 20 - 30 mmol/L [facility] Hct, POC 31.0(L) 41.4 - 51.6 % [facility] Total Hb, POC 10.3(L) 13.8 - 17.2 g/dL [facility] Blood 04/24/2025 9:41 AM CDT 04/24/2025 9:41 AM CDT us Aniceto Foley MD LAB POCT ORDERABLES - DEVICE Final Result Performing Organization Address City/[facility]/ZIP Co de Phone Number [facility] [place] [address] * [place] AN PROCEDURE PLACEHOLDER (04/24/2025 9:20 AM CDT) Jorge Sullivan CRNA - 04/24/2025 9:20 AM CDT Jorge Sánchez CRNA 04/24/2025 9:21 AM Peripheral IV Catheter Patient location: OR Staff: Placed by: SYNTHETIC SOIL BLOCKS PULPER: Jorge Sánchez CRNA Preprocedure prep: Prep solution: [...] MD ANESTHESIA ORDERABLES Fi nal Result * [place] AN PROCEDURE PLACEHOLDER (04/24/2025 9:19 AM CDT) Jorge Sulilvan CRNA - 04/24/2025 9:19 AM CDT Jorge [...] MD ANESTHESIA ORDERABLES Fi nal Result * IL AN PROCEDURE PLACEHOLDER (04/24/2025 9:18 AM CDT) Jorge Sullivan CRNA - 04/24/2025 9:18 AM CDT Jorge Sánchez CRNA 04/24/2025 9:19 AM Arterial Line Patient location: OR Indication: continuous blood pressure monitoring and blood sampling needed Ultrasound assisted: yes Staff: Placed by: SYNTHETIC SOIL BLOCKS PULPER: Jorge Sánchez CRNA Other staff: Yonas Meredith [...] MD ANESTHESIA ORDERABLES Fi nal Result * IL AN ELECTIVE ENDOTRACHEAL AIRWAY, [place] AN PROCEDURE PLACEHOLDER (04/24/2025 8:50 AM CDT) [...] - DEVICE Final Result Performing Organization Address [facility] de Phone Number [facility] [place] [address] * Type and screen (04/24/2025 7:18 AM CDT) Ashlee, indirect Negative ABO Rh A Negative [facility] Blood 04/24/2025 7:18 AM CDT 04/24/2025 7:31 AM CDT Narrative [facility] - 04/24/2025 8:34 AM CDT Has the patient had Daratumumab or Isatuximab in the past 6 months?->Unknown us Aniceto Foley MD LAB BLOOD BANK TEST ORDERABLE S Final Result Performing Organization Address [facility] Co de Phone Number [facility] [place] [address] * Prepare RBC: 2 Units (04/24/2025 6:46 AM CDT) Product code [id number] [facility] Unit Number [id number] 3-M [facility] Product Blood Type ANEG [facility] Dispense Status RETURNED [facility] Product code [id number] Unit Number [id number] 5-D [facility] Product Blood Type ANEG [facility] Dispense Status RETURNED [facility] Blood 04/24/2025 6:46 AM CDT 04/24/2025 6:46 AM CDT Narrative [facility] - 04/24/2025 11:58 AM CDT Specify Procedure:->Vascular surgery Are special requirements needed? (All products are leukoreduced and CMV- safe)- >No Date required:-[id number] LRRBC # of [id number] Reasons:-Hold for procedure (specify procedure)} us Aniceto Foley MD BLOOD BANK PRODUCT ORDERABLES Final Result Performing Organization Address City/[facility] Co de Phone Number [facility] [place] [address] * (ABNORMAL) Hemoglobin A1c (03/17/2025 1:05 PM CDT) Hgb A1C 6.7(H) 4.0 - 5.6 % Estimated Average Glucose 146 mg/dL [facility] Comment: The ADA recommends reporting an estimated Average Glucose (eAG) with all Hemoglobin A1c results using the equation derived from a study of 507 normal and diabetic adults. Minority populations were underrepresented and children were not included. (Diabetes Care 31:0558-4962, 2008). The eAG is not equivalent to a fasting glucose. Blood 03/17/2025 1:05 PM CDT 03/17/2025 1:05 PM CDT Sagrario Fernandez NP LAB BLOOD ORDERABLES Fi nal Result Performing Organization Address [facility] Co de Phone Number [facility] [address] [place] [address] from Last 3 Months or Most Recently Relevant to Health Maintenance Insurance DR MARTINEZ [address] [place] [id number] [facility] MEDICARE MEDICARE [facility] MEDICARE AAR [facility] DR [address]ARTINE[address] [place] [id number] MEDICARE [facility] Advance Directives For more information, please contact: [phone] * Full Code (Latest Code Status on File) Date Activated Date Inactivated Comments 04/24/2025 3:12 PM 04/26/2025 3:40 PM * Full Code Date Activated Date Inactivated Comments 11/09/2024 2:36 PM 11/12/2024 6:36 PM * Full Code Date Activated Date Inactivated Comments 10/30/2022 5:29 PM 10/31/2022 7:15 PM * Full Code Date Activated Date Inactivated Comments 08/16/2019 9:46 AM 08/16/2019 5:30 PM Care Teams Senior Telecommunications Engineer Relationship Specialty Start Date End Date Fuentes Orellana MD PCP - General 11/28/16 Itz Iyer MD [address] [facility] [address] [place], [place] [id number] Consulting Physician Urology 05/31/18 Shawnee Mckinney MD [address] [facility] [address] [place] [address] Referring Physician Urology 06/03/18 Chicho Clayton MD [address] [facility] [address] [place] [address] Medical Oncologist/Hematologis t Medical Oncology 06/07/18 Maria Guadalupe Palacios, RN Registered Nurse 06/10/18 Lupillo Davenport MD Referring Physician Radiation Oncology 06/16/18 Danis Meza NP [address] [facility] [address] [place] [address] Nurse Practitioner Urology 10/06/22 Antonette Owens NP [address] [facility] [address] [place] [address] Nurse Practitioner Cardiovascular Disease 10/06/22 Aniceto Foley MD [id number] [place] [address] Surgeon Vascular Surgery 10/31/22
--- OUTSIDE RECORDS SUMMARY | 2025-07-11 13:14 | XMS_ITS | Clinical Summary ---
Author Organization [facility] Address [address] [place] [address] Care Team Providers Care Category Planner Name Role Phone Fuentes Orellana MD Primary Care Provider [phone] Allergies No known active allergies Medications amLODIPine [...] age to complete this topic Insurance MEDICARE [facility] Care Teams Category Planner Relationship Specialty Start Date End Date Fuentes Orellana MD [address] [place] [address] PCP - General FAMILY PRACTICE 11/29/22
--- OUTSIDE RECORDS SUMMARY | 2025-07-11 13:14 | XMS_ITS | Encounter Summary ---
Author Organization [facility] Healthcare Address [address] [place] [address] Care Team Providers Care Clothing Examiner Name Role Phone Fuentes Orellana MD Primary Care Provider [phone] Itz Iyer MD Unavailable [phone] Shawnee Mckinney MD Unavailable [phone] Chicho Clayton MD Unavailable Maria Guadalupe Palacios RN Unavailable Unava ilable Lupillo Davenport MD Unavailable [phone] Danis Meza PUBLIC IMPROVEMENT INSPECTOR Unavailable Antonette Owens NP Unavailable Aniceto Foley MD Unavailable [phone] Reason for Referral * MRI/CAT/PET Scan (Routine) - Authorized Specialty Diagnoses / Procedures Referred By Contac t Referred To Contact Radiology Diagnoses Pelvic pain Procedures [place] [address] [place] [address] Phone: tel: fax: [address] [address] Referral ID Status Reason Start Date Expiration Date V isits Requested Visits Authorized [id number] Authorized 06/23/2025 07/23/2026 1 1 * Diagnostic Imaging (Routine) - Closed Specialty Diagnoses / Procedures Referred By Luis Felipe huerta Referred To Contact Radiology Diagnoses Microscopic hematuria Procedures CT ABDOMEN [place] [address] [place] [address] Phone: tel: fax: [address] [phone] Referral ID Status Reason Start Date Expiration Date Visits Re quested Visits Authorized [id number] Closed 06/23/2025 07/23/2026 1 1 Encounter Details Date Type Department Care Team (Late st Contact Info) Description 06/23/2025 Community Orders [facility] [place] [address] [place] [address] Microscopic hematuria (Primary Dx); Pelvic pain Social History Tobacco Use Types Packs/Day Years Used Date Smoking Tobacco: Former Cigarettes 1.5 19 1 966 - 1984 Passive Smoke Exposure: Past Smokeless Tobacco: Never Alcohol Use Standard Drinks/Week Comments Yes 4 (1 standard drink = 0.6 oz pur e alcohol) [facility] Utilities Answer Date Recorded In the past 12 months has e electric, gas, oil, or water [employer] threatened to shut off services in your [...] often do you attend chur ch or methodist services? More than 4 times per year [...] time in the past 12 m [facility], were you homeless or living in a intermediate (including now)? 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 Electronically signed by: Alfonso Martinez M.D. [facility] Thomas Meneses MD [facility] CT PROCEDURES Final Result documented in this encounter Visit Diagnoses Diagnosis Microscopic hematuria- Primary Pelvic pain Microscopic hematuria documented in this encounter Care Teams Clothing Examiner Relationship Specialty Start Date End Date Fuentes Orellana MD PCP - General 11/28/16 Itz Iyer MD [address] [place] [address] Consulting Physician Urology 05/31/18 Shawnee Mckinney MD [address] [place] [address] Referring Physician Urology 06/03/18 Chicho Clayton MD [address] [place] [address] Medical Oncologist/Hematologis t Medical Oncology 06/07/18 Maria Guadalupe Palacios, RN Registered Nurse 06/10/18 Lupillo Davenport MD Referring Physician Radiation Oncology 06/16/18 Danis Meza NP [address] [facility] [address] [place] [address] Nurse Practitioner Urology 10/06/22 Antonette Owens NP [address] [place] [address] Nurse Practitioner Cardiovascular Disease 10/06/22 Aniceto Foley MD [address] [place] [address] Surgeon Vascular Surgery 10/31/22 documented as of this encounter
--- OUTSIDE RECORDS SUMMARY | 2025-07-11 13:14 | XMS_ITS | Encounter Summary ---
Author Organization [facility] Healthcare Address [address] [place] [address] Care Team Providers Care Beef Killer Name Role Phone Fuentes Orellana MD Primary Care Provider + [phone] Itz Iyer MD Unavailable + [phone] Lupillo Davenport MD Unavailable [phone] Lupillo Davenport MD Unavailable [phone] Shawnee Mckinney MD Unavailable [phone] Chicho Clayton MD Unavailable Newton Weeks MD Unavailable [phone] Maria Guadalupe Palacios RN Unavailable Unava ilable Lupillo Davenport MD Unavailable [phone] Itz Iyer MD Unavailable [phone] Itz Iyer MD Unavailable +[phone] Itz yIer MD Unavailable +[phone] Itz Iyer MD Unavailable +[phone] Itz Iyer MD Unavailable [phone] Itz Iyer MD Unavailable [phone] Danis Meza NP Unavailable [phone] Antonette Owens NP Unavailable Aniceto Foley MD Unavailable Encounter Details Date Type Department Care Team (Late st Contact Info) Description 04/12/2018 Orders Only [facility] Health Information Management [address] [place] [address] Scanning, Provider Social History Tobacco Use Types Packs/Day Years Used Date Smoking Tobacco: Never Smokeless Tobacco: Never Alcohol Use Standard Drinks/Week Comments Yes 0 (1 standard drink = 0.6 oz pur e alcohol) Sex and Gender Information Value Date Recorded Sex Assigned at Not on file 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 Gender Identity Not on file Sexual Orientation [...] on filedocumented in this encounter Care Teams Beef Killer Relationship Specialty Start Date End Date Fuentes Orellana MD PCP - General 11/28/16 Itz Iyer MD [address] [facility] [address] [place] [address] Consulting Physician Urology 05/31/18 Lupillo Davenport MD [address] [place] [address] Referring Physician Radiation Oncology 05/31/18 Lupillo Davenport MD [address] [place] [address] Referring Physician Radiation Oncology 05/31/18 Shawnee Mckinney MD [address] [facility] [address] [place] [address] Referring Physician Urology 06/03/18 Chicho Clayton MD [address] [facility] [address] [place] [address] Medical Oncologist/Hematologis t Medical Oncology 06/07/18 Newton Weeks MD [address] [facility] [address] [place] [address] Referring Physician Radiation Oncology 06/07/18 Maria Guadalupe Palacios RN Registered Nurse 06/10/18 Lupillo Davenport MD [address] [place] [address] Referring Physician Radiation Oncology 06/16/18 Itz Iyer MD [address] [place] [address] Consulting Physician Urology 06/17/18 06/17/18 Itz Iyer MD [address] [place] [address] Consulting Physician Urology 06/18/18 06/18/18 Itz Iyer MD [address] [address] Consulting Physician Urology 06/18/18 06/18/18 Itz Iyer MD [address] [place] [address], [place] [address] Consulting Physician Urology 06/22/18 06/22/18 Itz Iyer MD [address] [place] [address] Consulting Physician Urology 07/01/18 07/01/18 Itz Iyer MD [address] [place] [address] Consulting Physician Urology 07/06/18 07/06/18 Danis Meza NP [address] [facility] [address] [place] [address] Nurse Practitioner Urology 10/06/22 Antonette Owens NP [address] [facility] [address] [place] [address] Nurse Practitioner Cardiovascular Disease 10/06/22 Aniceto Foley MD [address] [place] [address] Surgeon Vascular Surgery 10/31/22 documented as of this encounter
--- OUTSIDE RECORDS SUMMARY | 2025-07-11 13:14 | XMS_ITS | Encounter Summary ---
Author Organization [facility] Healthcare Address [address] [place] [address] Care Team Providers Care Food Services Manager Name Role Phone Fuentes Orellana MD Primary Care Provider + [phone] Itz Iyer MD Unavailable [phone] Lupillo Davenport MD Unavailable [phone] Lupillo Davenport MD Unavailable [phone] Shawnee Mckinney MD Unavailable [phone] Chicho Clayton MD Unavailable Newton Weeks MD Unavailable [phone] Maria Guadalupe Palacios RN Unavailable Unava ilable Lupillo Davenport MD Unavailable [phone] Itz Iyer MD Unavailable [phone] Itz Iyer MD Unavailable +[phone] Itz Iyer MD Unavailable +[phone] Itz Iyer MD Unavailable +[phone] Itz Iyer MD Unavailable [phone] Itz Iyer MD Unavailable [phone] Danis Meza NP Unavailable [phone] Antonette Owens NP Unavailable Aniceto Foley MD Unavailable Encounter Details Date Type Department Care Team (Late st Contact Info) Description 03/30/2018 Orders Only [facility] Health Information Management [address] [place] [address] Scanning, Provider Social History Tobacco Use Types Packs/Day Years Used Date Smoking Tobacco: Never Smokeless Tobacco: Never Alcohol Use Standard Drinks/Week Comments Yes 0 (1 standard drink = 0.6 oz pur e alcohol) Sex and Gender Information Value Date Recorded Sex Assigned at Not on file Legal 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 Gender Identity Not on file Sexual [...] filedocumented in this encounter Care Teams Food Services Manager Relationship Specialty Start Date End Date Fuentes Orellana MD PCP - General 11/28/16 Itz Iyer MD [address] [facility] [address] [place] [address] Consulting Physician Urology 05/31/18 Lupillo Davenport MD [address] [place] [address] Referring Physician Radiation Oncology 05/31/18 Lupillo Davenport MD [address] [place] [address] Referring Physician Radiation Oncology 05/31/18 Shawnee Mckinney MD [address] [facility] [address] [place] [address] Referring Physician Urology 06/03/18 Chicho Clayton MD [address] [facility] [address] [place] [address] Medical Oncologist/Hematologis t Medical Oncology 06/07/18 Newton Weeks MD [address] [facility] [address] [place] [address] Referring Physician Radiation Oncology 06/07/18 Maria Guadalupe Palacios RN Registered Nurse 06/10/18 Lupillo Davenport MD [address] [place] [address] [place] [address] Referring Physician Radiation Oncology 06/16/18 Itz Iyer MD [address] [address] Consulting Physician Urology 06/17/18 06/17/18 Itz Iyer MD [address] [place] [address] Consulting Physician Urology 06/18/18 06/18/18 Itz Iyer MD [address] [address] Consulting Physician Urology 06/18/18 06/18/18 Itz Iyer MD [address] [address] Consulting Physician Urology 06/22/18 06/22/18 Itz Iyer MD [address] [place] [address] Consulting Physician Urology 07/01/18 07/01/18 Itz Iyer MD [address] [place] [address] Consulting Physician Urology 07/06/18 07/06/18 Danis Meza NP [address] [facility] [address] [place] [address] Nurse Practitioner Urology 10/06/22 Antonette Owens NP [address] [facility] [address] [place] [address] Nurse Practitioner Cardiovascular Disease 10/06/22 Aniceto Foley MD [address] [place] [address] Surgeon Vascular Surgery 10/31/22 documented as of this encounter
--- OUTSIDE RECORDS SUMMARY | 2025-07-11 13:14 | XMS_ITS ---
Author Organization [facility] [address] Address [address] [place] [address] Care Team Providers Care Camera Person Name Role Phone Fuentes Orellana MD Primary Care Provider Itz Iyer MD Unavailable [phone] Shawnee Mckinney MD Unavailable [phone] Chicho Clayton MD Unavailable Maria Guadalupe Palacios RN Unavailable Unava ilable Lupillo Davenport MD Unavailable [phone] Danis Meza GENERAL LABORER Unavailable [phone] Antonette Owens NP Unavailable Aniceto Foley MD [...] (10/21/2022): Added automatically from request for surgery [id number] Assessment & Plan (10/30/2022 2:56 PM INSURANCE LOSS ASSESSOR): - OR 3/2 for planned R CEA - OU status, Q2h NV/VS monitoring - Bedrest today, OOB/PT POD #1 - SBP goal 100-160, nicardipine for elevated BP - Continue aspirin and statin - Plan to stager home medications and resume overnight Atherosclerosis of round [place] ar teries of extremities with intermittent claudication, bilateral legs 06/03/2022 Melanoma 01/10/2021 Anxiety 01/10/2021 DM (diabetes mellitus) 01/10/2021 Assessment & Plan (04/25/2025 6:06 AM CDT): NIDDM, on finerenon, amaryl, tradjenta. - Hold home PO diabetic meds while inpatient. Restart at discharge. - Diabetic diet, SSI Assessment & Plan (10/30/2022 9:59 AM INSURANCE LOSS ASSESSOR): - A1c 7.6% 10/2022 - SSI while inpatient - CC diet when eating Elevated left ventricular end-diastolic pressure (LVEDP) 11/15/2019 Encounter for surgical after care following surgery of circulatory system 05/20/2019 Prostate cancer 09/10/2018 Assessment & Plan (10/27/2018 9:53 AM INSURANCE LOSS ASSESSOR): Follows with urology, has his PSA monitored it is increasing, but still WNL 1.4 Assessment & Plan (09/22/2018 11:35 AM INSURANCE LOSS ASSESSOR): Has close follow up with his oncologist. His PSA was slightly elevated on last check. Hyperlipidemia 09/21/2017 Assessment & Plan (06/30/2018 9:38 AM CDT): His last lipid panel was within acceptable range; he will continue on a high intensity statin. Assessment & Plan (09/21/2017 11:34 AM INSURANCE LOSS ASSESSOR): Continue Lipitor 40 mg daily. Essential hypertension 07/20/2017 Assessment & Plan (10/30/2022 2:57 PM INSURANCE LOSS ASSESSOR): - Tight BP goals post-procedure - Continue home medications as indicated by BP goals as above, staggering overnight for gentle BP control Assessment & Plan (10/27/2018 9:54 AM INSURANCE LOSS ASSESSOR): Hypertension is unchanged. Dietary sodium restriction. Blood pressure will be reassessed in 4 weeks. Assessment & Plan (09/22/2018 11:38 AM INSURANCE LOSS ASSESSOR): Hypertension remains elevated. He is increasing his [...] today Assessment & Plan (09/21/2017 11:33 AM INSURANCE LOSS ASSESSOR): Blood pressure is well controlled today. Last visit we added HCTZ 12.5 mg daily. Continue current medications Assessment & Plan (08/10/2017 11:26 AM INSURANCE LOSS ASSESSOR): Blood pressure is not controlled. Add hydrochlorothiazide 12.5 mg p.o. daily. He is compliant with medications but always add salt to food which I advised him not to do that. Assessment & Plan (07/20/2017 9:19 AM INSURANCE LOSS ASSESSOR): Blood pressure remains uncontrolled. We will order renal Doppler ultrasound to rule out renal artery stenosis given the fact that he has peripheral vascular disease and coronary artery disease. I will increase amlodipine from 5-10 mg p.o. daily. If that does not control the blood pressure we will add hydrochlorothiazide 12.5 mg p.o. Daily. Coronary artery disease invo lving round valley coronary artery of round valley heart without angina pectoris 07/20/2017 Assessment & Plan (10/30/2022 9:58 AM INSURANCE LOSS ASSESSOR): - Continue home medications as able - Maintained on Brilinta as an outpatient; held 1 week prior to OR - Will discuss with surgery team when to safely resume post-procedure Assessment & Plan (10/27/2018 9:59 AM INSURANCE LOSS ASSESSOR): Coronary artery disease is improving with lifestyle modifications. Continue current treatment regimen. Cardiac status will be reassessed in 3 months. No chest pain. Minimal SOB. Continue asa, statin, brilinta Assessment & Plan (09/22/2018 11:36 AM INSURANCE LOSS ASSESSOR): Coronary artery disease is unchanged. Regular aerobic [...] BB. Assessment & Plan (09/21/2017 11:33 AM INSURANCE LOSS ASSESSOR): Continue aspirin, Brilinta, Toprol XL and atorvastatin. Assessment & Plan (08/10/2017 11:27 AM INSURANCE LOSS ASSESSOR): Continue Brilinta and aspirin. Asymptomatic. Assessment & Plan (07/20/2017 9:19 AM INSURANCE LOSS ASSESSOR): Continue aspirin, Brilinta, Lipitor , metoprolol PVD [...] plan. Assessment & Plan (10/27/2018 9:21 AM INSURANCE LOSS ASSESSOR): S/P bilateral ALVA angioplasty; right EIA angioplasty/stent 11/21/14. S/P aortoiliac angioplasty/stent 05/28/09. Continues on asa, statin and brilinta Assessment & Plan (09/21/2017 11:34 AM INSURANCE LOSS ASSESSOR): He follows up with vascular surgery at [facility] Assessment & Plan (08/10/2017 11:27 AM INSURANCE LOSS ASSESSOR): Renal ultrasound suggest more than 60% stenosis in the right renal artery and infrarenal stenosis 50-70%. He follows up with Dr. Foley from vascular surgery at [facility] Assessment & Plan (07/20/2017 9:20 AM INSURANCE LOSS ASSESSOR): Patient will follow up with Dr. Foley [...] 02/09/2019 Assessment & Plan (10/27/2018 10:17 AM INSURANCE LOSS ASSESSOR): Persistent dizziness. Has stopped caffeine intake. Has [...] implant or graft 6 02/09/2019 Atherosclerosis of round valley artery of extremity 04/15/20 16 02/09/2019 Assessment & Plan (09/22/2018 11:26 AM INSURANCE LOSS ASSESSOR): 80% circumflex s/p RICHARD. Moderate 30 % LAD with bridging Impotence of organic origin 09/18/2015 02/09/2019 Urinary tract infection 01/18/201501/29 Incontinence 01/18/2015 02/09/2019 Stricture, urethra 07/31/2011 9 Overview (12/10/2017): Description: Dilation 06/09/11 Nocturia 11/28/2010 02/09/2019 Hypertension 05/16/2009 02/09/2019 Assessment & Plan (10/27/2018 10:11 AM INSURANCE LOSS ASSESSOR): Hypertension is {improving/stable/worsenin}. {plan; hypertension for POC:[id number]} Blood pressure will be reassessed {plan; follow-up 2 weeks/4weeks/3months:[id number]}. Increase amolodipine to 10 mg Continue all [...]
--- OUTSIDE RECORDS SUMMARY | 2025-07-11 13:14 | XMS_ITS | Encounter Summary ---
Author Organization [facility] Address [address] [place] [address] Phone Care Team Providers Care Automobile Radio Repairer Name Role Phone Fuentes Orellana MD Primary Care Provider Brent Dickinson DO Unavailable [phone] Faviola Jiménez LOADER TECHNICIAN, SWEDGER Unavailable Shawnee Mckinney MD Unavailable Chicho Clayton MD Unavailable Lai Lambert LOADER TECHNICIAN, SWEDGER Unavailable [phone] Kami Meneses MD Unavailable [phone] Anette Bond MD Unavailable [phone] Kay Gordon LOADER TECHNICIAN, SWEDGER Unavailable Kami Meneses MD Unavailable [phone] Kaim Meneses MD Unavailable [phone] Kami Meneses MD Unavailable [phone] Encounter Details Date Type Department Care Team (Late st Contact Info) Description 08/22/2024 Telephone [facility] [address] [place] [address] Kami Meneses MD [address], [address] [place] [address] Social History Tobacco Use Types Packs/Day Years [...] 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 HT PURSER * Telephone Encounter - Elidia Dill - 08/29/2024 8:20 AM CST Please see Dr. Otto message. HT PURSER * Telephone Encounter - Kami Meneses MD [...] sphincter. This needs to be done at [facility] by mo. He will need a urine culture 14 days prior to surgery. Hibiclens shower the night before morning of surgery, vancomycin and gentamicin for antibiotics HT PURSER HT PURSER documented in this encounter Plan of Treatment Not on file documented as of this encounter Visit Diagnoses Not on filedocumented in this encounter Care Teams Automobile Radio Repairer Relationship Specialty Start Date End Date Fuentes Orellana MD [address] [place] [address] PCP - General Family Medicine 07/06/15 Brent Dickinson DO [address] [facility] [address] Gastroenterology 06/27/16 Faviola Jiménze APRN, SWEDGER [address] [facility] [place] [place] [address] Nurse Practitioner Advanced Practice Nurse 07/22/16 Shawnee Mckinney MD [address] [facility] [address] [place] [address] Urologist Urology 06/07/19 Chicho Clayton MD [address] [facility] [address] [place] [address] Oncology 06/13/19 Lai Lambert APRN, SWEDGER [address] [place] [address] Nurse Practitioner Advanced Practice Nurse 02/10/23 Kami Meneses MD [address] [address] Consulting Physician Urology 06/16/23 Anette Bond MD [address] [place] [address] Consulting Physician Gastroenterology 12/25/22 Kay Gordon APRN, SWEDGER [address] [place] [address] Nurse Practitioner Advanced Practice Nurse 06/16/24 Kami Meneses MD [address] [address] Consulting Physician Urology 08/19/24 Kami Meneses MD [address] [address] Consulting Physician Urology 01/06/25 Kami Meneses MD [address] [address] Consulting Physician Urology 03/08/25 documented as of this encounter
--- OUTSIDE RECORDS SUMMARY | 2025-07-11 13:14 | XMS_ITS | Encounter Summary ---
Author Organization [facility] Address [address] [place] [address] Phone Care Team Providers Care Carbon Printer Name Role Phone Fuentes Orellana MD Primary Care Provider Brent Dickinson DO Unavailable [phone] Faviola Jiménez SUPERVISOR TREE TRIMMING, TOLL TESTBOARD WORKER Unavailable Shawnee Mckinney MD Unavailable Chicho Clayton MD Unavailable Lai Lambert SUPERVISOR TREE TRIMMING, TOLL TESTBOARD WORKER Unavailable [phone] Kami Meneses MD Unavailable [phone] Anette Bond MD Unavailable [phone] Kay Gordon SUPERVISOR TREE TRIMMING, TOLL TESTBOARD WORKER Unavailable Kami Meneses MD Unavailable [phone] Kami Meneses MD Unavailable [phone] Kami Meneses MD Unavailable [phone] Reason for Visit * Reason Comments Medication Refill Encounter Details Date Type Department Care Team (Late st Contact Info) Description 11/12/2022 Refill [facility] - [facility]enterology - [place] [address] [place] [address] Ingrid Mccloud Ashley, PAC [address] [place] [address] Medication Refill Social History Tobacco Use Types [...] on filedocumented in this encounter Care Teams Carbon Printer Relationship Specialty Start Date End Date Fuentes Orellana MD [address] [place] [address] PCP - General Family Medicine 07/06/15 Brent Dickinson DO [address] [address] Gastroenterology 06/27/16 Faviola Jiménez APRN, TOLL TESTBOARD WORKER [address] [address] Nurse Practitioner Advanced Practice Nurse 07/22/16 Shawnee Mckinney MD [address] [facility] [address] [place] [address] Urologist Urology 06/07/19 Chicho Clayton MD [address] [facility] [address] [place] [address] Oncology 06/13/19 Lai Lambert APRN, TOLL TESTBOARD WORKER [address] [place] [address] Nurse Practitioner Advanced Practice Nurse 02/10/23 Kami Meneses MD #[address] [address] Consulting Physician Urology 06/16/23 Anette Bond MD [address] [place] [address] Consulting Physician Gastroenterology 12/25/22 Kay Gordon APRN, TOLL TESTBOARD WORKER [address] [place] [address] Nurse Practitioner Advanced Practice Nurse 06/16/24 Kami Meneses MD [address] [facility] [address] [facility] [address] [place] [address] Consulting Physician Urology 08/19/24 Kami Meneses MD [address], [facility] [address] [place] [address] Consulting Physician Urology 01/06/25 Kami Meneses MD [address], [facility] [address] [place] [address] Consulting Physician Urology 03/08/25 documented as of this encounter
--- OUTSIDE RECORDS SUMMARY | 2025-07-11 13:14 | XMS_ITS | Encounter Summary ---
Author Organization [facility] Healthcare Address [address] [place] [address] Care Team Providers Care Cabinet Assembler Name Role Phone Fuentes Orellana MD Primary Care Provider + [phone] Itz Iyer MD Unavailable [phone] Shawnee Mckinney MD Unavailable [phone] Chicho Clayton MD Unavailable Maria Guadalupe Palacios RN Unavailable Unava ilable Lupillo Davenport MD Unavailable [phone] Danis Meza MANAGER OF COMPENSATION Unavailable [phone] Antonette Owens NP Unavailable Aniceto Foley MD Unavailable [phone] Encounter Details Date Type Department Care Team (Late st Contact Info) Description 07/24/2024 Orders Only [facility] Health Information Management [address] [place] [address] Scanning, Provider Social History Tobacco Use Types [...] on file 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 Gender Identity Not on file Sexual Orientation [...] on filedocumented in this encounter Care Teams Cabinet Assembler Relationship Specialty Start Date End Date Fuentes Orellana MD PCP - General 11/28/16 Itz Iyer MD [address] [address] Consulting Physician Urology 05/31/18 Shawnee Mckinney MD 4960 [facility] [address] [place] [address] Referring Physician Urology 06/03/18 Chicho Clayton MD 4921 [facility] [address] [place] [address] Medical Oncologist/Hematologis t Medical Oncology 06/07/18 Maria Guadalupe Palacios RN Registered Nurse 06/10/18 Lupillo Davenport MD Referring Physician Radiation Oncology 06/16/18 Danis Meza NP [address] [facility] [address] [place] [address] Nurse Practitioner Urology 10/06/22 Antonette Owens NP [address] [facility] [address] [place] [address] Nurse Practitioner Cardiovascular Disease 10/06/22 Aniceto Foley MD [address] [place] [address] Surgeon Vascular Surgery 10/31/22 documented as of this encounter
--- OUTSIDE RECORDS SUMMARY | 2025-07-11 13:14 | XMS_ITS | Encounter Summary ---
Author Organization [facility] Address [address] [place] [address] Phone Care Team Providers Care Screen And Cyclone Repairer Name Role Phone Fuentes Orellana MD Primary Care Provider Brent Dickinson DO Unavailable [phone] Faviola Jiménez GAMEMASTER, PACKER DENTURE Unavailable Shawnee Mckinney MD Unavailable Chicho Clayton MD Unavailable Lai Lambert GAMEMASTER, PACKER DENTURE Unavailable [phone] Kami Meneses MD Unavailable [phone] Anette Bond MD Unavailable [phone] Kay Gordon GAMEMASTER, PACKER DENTURE Unavailable Kami Meneses MD Unavailable [phone] Kami Meneses MD Unavailable [phone] Kami Meneses MD Unavailable [phone] Reason for Visit * Reason Comments Medication Refill Encounter Details Date Type Department Care Team (Late st Contact Info) Description 03/25/2021 Refill [facility] - Gastroenterology - [place] [address] [place] [address] Ingrid Mccloud Ashley, PAC [address] [place] [address] Medication Refill Social History Tobacco Use Types [...] 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 on file [...] documented as of this encounter Care Teams Screen And Cyclone Repairer Relationship Specialty Start Date End Date Fuentes Orellana MD [address] [address] PCP - General Family Medicine 07/06/15 Brent Dickinson DO [address] [address] Gastroenterology 06/27/16 Faviola Jiménez APRN, PACKER DENTURE [address] [facility] [place] [address] Nurse Practitioner Advanced Practice Nurse 07/22/16 Shawnee Mckinney MD 4960 [facility] [address] [place] [address] Urologist Urology 06/07/19 Chicho Clayton MD 4921 [facility] [address] [place] [address] Oncology 06/13/19 Lai Lambert APRN, PACKER DENTURE [address] [place] [address] Nurse Practitioner Advanced Practice Nurse 02/10/23 Kami Meneses MD #[address] [address] Consulting Physician Urology 06/16/23 Anette Bond MD #[address] [place] [address] Consulting Physician Gastroenterology 12/25/22 Kay Gordon APRN, PACKER DENTURE [address] [place] [address] Nurse Practitioner Advanced Practice Nurse 06/16/24 Kami Meneses MD [address] [facility] [address] [place] [address] Consulting Physician Urology 08/19/24 Kami Meneses MD #[address] [facility] [address] [place] [address] Consulting Physician Urology 01/06/25 Kami Meneses MD #[address] [address] [place] [address] Consulting Physician Urology 03/08/25 documented as of this encounter
--- OUTSIDE RECORDS SUMMARY | 2025-07-11 13:14 | XMS_ITS | Encounter Summary ---
Author Organization [facility] Healthcare Address [address] [place] [address] Care Team Providers Care Forest Products Gatherer Name Role Phone Fuentes Orellana MD Primary Care Provider + [phone] Itz Iyer MD Unavailable [phone] Lupillo Davenport MD Unavailable [phone] Lupillo Davenport MD Unavailable [phone] Shawnee Mckinney MD Unavailable [phone] Chicho Clayton MD Unavailable [place] Weeks MD Unavailable [phone] Maria Guadalupe Palacios RN Unavailable Unava ilable Lupillo Davenport MD Unavailable [phone] Itz Iyer MD Unavailable [phone] Itz Iyer MD Unavailable [phone] Itz Iyer MD Unavailable [phone] Itz Iyer MD Unavailable [phone] Itz Iyer MD Unavailable [phone] Itz Iyer MD Unavailable [phone] Danis Meza NP Unavailable [phone] Antonette Owens NP Unavailable Aniceto Foley MD Unavailable Encounter Details Date Type Department Care Team (Late st Contact Info) Description 03/16/2018 Orders Only [facility] [place] Health Information Management [address] [place] [address] Scanning, Provider Social History Tobacco Use Types Packs/Day Years Used Date Smoking Tobacco: Never Smokeless Tobacco: Never Alcohol Use Standard Drinks/Week Comments Yes 0 (1 standard drink = 0.6 oz pur e alcohol) Sex and Gender Information Value Date Recorded Sex Assigned at Not on file 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 Gender Identity Not on file Sexual Orientation [...] on filedocumented in this encounter Care Teams Forest Products Gatherer Relationship Specialty Start Date End Date Fuentes Orellana MD PCP - General 11/28/16 Itz Iyer MD [address] [facility] [address] [place] [address] Consulting Physician Urology 05/31/18 Lupillo Davenport MD [address] [place] [address] Referring Physician Radiation Oncology 05/31/18 Lupillo Davenport MD [address] [place] [address] Referring Physician Radiation Oncology 05/31/18 Shawnee Mckinney MD [address]60 [facility] [address] [place] [address] Referring Physician Urology 06/03/18 Chicho Clayton MD 49[address] [facility] [address] [place] [address] Medical Oncologist/Hematologis t Medical Oncology 06/07/18 [place] Weeks MD [address] [facility] [address] [place] [address] Referring Physician Radiation Oncology 06/07/18 Maria Guadalupe Palacios RN Registered Nurse 06/10/18 Lupillo Davenport MD [address] [place] [address] [place] [address] Referring Physician Radiation Oncology 06/16/18 Itz Iyer MD [address] [address] Consulting Physician Urology 06/17/18 06/17/18 Itz Iyer MD [address] [place] [address] Consulting Physician Urology 06/18/18 06/18/18 Itz Iyer MD [address] [address] Consulting Physician Urology 06/18/18 06/18/18 Itz Iyer MD [address] [address] Consulting Physician Urology 06/22/18 06/22/18 Itz Iyer MD [address] [place] [address] Consulting Physician Urology 07/01/18 07/01/18 Itz Iyer MD [address] [place] [address] Consulting Physician Urology 07/06/18 07/06/18 Danis Meza NP [address] [place] [address] Nurse Practitioner Urology 10/06/22 Antonette Owens NP [address] [place] [address] Nurse Practitioner Cardiovascular Disease 10/06/22 Aniceto Foley MD [address] [place] [address] Surgeon Vascular Surgery 10/31/22 documented as of this encounter
--- OUTSIDE RECORDS SUMMARY | 2025-07-11 13:14 | XMS_ITS | Encounter Summary ---
Author Organization [facility] Address [address] [place] [address] Phone Care Team Providers Care Ship'S Electronic Warfare Officer Name Role Phone Fuentes Orellana MD Primary Care Provider [phone] Brent Dickinson DO Unavailable [phone] Faviola Jiménez ENGINEER DESIGN AND CONSTRUCTION, ORTHOPEDIC TECHNICIAN Unavailable Shawnee Mckinney MD Unavailable Chicho Clayton MD Unavailable Lai Lambert ENGINEER DESIGN AND CONSTRUCTION, ORTHOPEDIC TECHNICIAN Unavailable [phone] Kami Meneses MD Unavailable [phone] Anette Bond MD Unavailable [phone] Kay Gordon ENGINEER DESIGN AND CONSTRUCTION, ORTHOPEDIC TECHNICIAN Unavailable Kami Meneses MD Unavailable [phone] Kami Meneses MD Unavailable [phone] Kami Meneses MD Unavailable [phone] Reason for Visit * Reason Comments Medication Refill Encounter Details Date Type Department Care Team (Late st Contact Info) Description 10/15/2021 Refill [facility] - Gastroenterology [facility] [address] [place] [address] Ingrid Mccloud Ashley, PAC [address] [place] [address] Medication Refill Social History Tobacco Use Types [...] 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 ORMANCE TEST ENGINEER documented in this encounter Plan of Treatment Not on file documented as of this encounter Visit Diagnoses Not on filedocumented in this encounter Care Teams Ship'S Electronic Warfare Officer Relationship Specialty Start Date End Date Fuentes Orellana MD [address] [address] PCP - General Family Medicine 07/06/15 Brent Dickinson DO [address] [address] Gastroenterology 06/27/16 Faviola Jiménez, ENGINEER DESIGN AND CONSTRUCTION, ORTHOPEDIC TECHNICIAN [address] [address] Nurse Practitioner Advanced Practice Nurse 07/22/16 Shawnee Mckinney MD 4960 [facility] [address] [place] [address] Urologist Urology 06/07/19 Chicho Clayton MD 49[address] [facility] [address] [place] [address] Oncology 06/13/19 Lai Lambert APRN, ORTHOPEDIC TECHNICIAN [address] [place] [address] Nurse Practitioner Advanced Practice Nurse 02/10/23 Kami Meneses MD #[address] [address] Consulting Physician Urology 06/16/23 Anette Bond MD #2 [place] [address] Consulting Physician Gastroenterology 12/25/22 Kay Gordon APRN, ORTHOPEDIC TECHNICIAN [address] [place] [address] Nurse Practitioner Advanced Practice Nurse 06/16/24 Kami Meneses MD #[address] [address] Consulting Physician Urology 08/19/24 Kami [facility]eses MD [facility] [address] [address] Consulting Physician Urology 01/06/25 Kami Meneses MD #[address] [address] Consulting Physician Urology 03/08/25 documented as of this encounter
[2025-07-11 14:36] LABS: NT Pro B Type Natriuretic Pept 28 pg/mL (19.9-100)
== END 2025-07-11 13:10 | disposition home or self-care (01) ==
PROVIDERS: PCP Family Medicine; Visit Provider Nurse Practitioner Family
DX: I50.9 Heart failure, unspecified (principal)
CPT/HCPCS: 36415; 83880; 86317

== ENCOUNTER 2025-07-25 21:39 | Inpatient (IN) | payer MEDICARE, SELFPAY ==
--- OUTSIDE RECORDS SUMMARY | 2025-07-24 09:15 | XMS_ITS | Encounter Summary ---
Author Organization [facility] Healthcare Address [address] [place] [address] Care Team Providers Care Die Sizer Name Role Phone Fuentes Orellana MD Primary Care Provider [phone] Itz Iyer MD Unavailable [phone] Shawnee Mckinney MD Unavailable [phone] Chicho Clayton MD Unavailable Maria Guadalupe Palacios RN Unavailable Unava ilable Lupillo Davenport MD Unavailable [phone] Danis Meza NP Unavailable [phone] Antonette Owens NP Unavailable Aniceto Foley MD Unavailable [phone] Reason for Visit * Cardiology (Routine) - Closed Specialty Diagnoses / Procedures Referred By Contac t Referred To Contact Diagnoses 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 JARA (dyspnea on exertion) Procedures Transthoracic Echo (TTE) Complete W Doppler/CF Sugar Jolly NP [address] [address] Phone: tel: fax: [facility] [address] [place] [address] Phone: tel: fax: Referral ID Status Reason Start Date Expiration Date Visits Re quested Visits Authorized [id number] Closed 07/13/2025 08/12/2026 1 1 Encounter Details Date Type Department Care Team (Latest Contact Info) Description 07/24/2025 9:15 AM HEEL COVER SPLITTER Ancillary Procedure [facility] [address] [place] [address] 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 Utilities Answer Date Recorded In the [...] often do you attend chur ch or confucianist services? More than 4 times per year [...] any time in the past 12 m [facility], were you homeless or living in a penitentiary (including now)? No 11/11/2024 AUDIT-C Answer Date [...] on file Legal Sex Male 12:32 AM HEEL COVER SPLITTER Gender Identity Not on file Sexual Orientation Choose not to disclose 2018 8:58 AM CDT Occupation Industry Job 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 Date retired Not on file Not on file Not on file documented as of this encounter Plan of Treatment Upcoming Encounters Date Type Department Care Team (Latest Contact Info) Description 08/30/2025 7:30 AM HEEL COVER SPLITTER Hospital Encounter [facility] Operating Room [address] [place] [id number] [place] [address] [place] [address] 08/30/2025 7:30 AM HEEL COVER SPLITTER - 08/30/2025 10:30 AM HEEL COVER SPLITTER Surgery [facility] [address] [place] [address] [place] [address] [place] [address] Revision Artificial Urinary Sphincter Scheduled Procedures Name Priority Associated Diagnoses Date/Ti me REVISION ARTIFICIAL URINARY SPHINCTER Retention of urine 08/30/2025 7:30 AM HEEL COVER SPLITTER documented as of this encounter Procedures Procedure Name Priority Date/Time Associated Diagnosis Comments TRANSTHORACIC ECHO (TTE) COMPLETE W DOPPLER/CF W CONTRAST Routine 07/24/2025 10:14 AM HEEL COVER SPLITTER 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 JARA (dyspnea on exertion) documented in this encounter Results * TRANSTHORACIC ECHO (TTE) COMPLETE W DOPPLER/CF W CONTRAST (07/24/2025 10:14 AM HEEL COVER SPLITTER) Estimated EF 75 % CONS SCIMAGE EF Mod BP 76 % CONS SCIMAGE Anatomical Region Laterality Modality Ultrasound 07/24/2025 9:26 AM HEEL COVER SPLITTER Narrative 07/24/2025 4:40 PM HEEL COVER SPLITTER [facility] [address] [facility] [address], [place] [address] [address] [facility] [address], [place] [address] P:[phone] P:[phone] Echocardiographic Report Patient Name: RIVERA FREEMAN E : 1950 Study Date: 07/24/2025 9:26:41 AM Sex: M Dormitory Counselor: Urmila Barrientos)(CT), [facility] Location: [facility] Ref Provider: SUGAR JOLLY Height(Cm): 168 BSA: 1.97 Weight(Kg): 83.5 Heart Rate: 102 BP: 122 / 56 Quality: Good Order Provider: SUGAR JOLLY PROCEDURES: Echocardiographic Report: Transthoracic echocardiogram with complete 2D, M-Mode, color Doppler examination and Definity contrast. With Strain Analysis. 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 MEASUREMENTS: 2D/MM Value Range Doppler Value Range EF Mod BP 76 % [ 52 - 72 ] DIOMEDES Vmax 1.99 cm2 [ 2.00 - 4.00 ] Estimated EF 75 % AV Mean PG 6 mmHg LV GLS -16.71 % AV [place] 1.62 m/s [ 1.00 - 1.70 ] LVIDd 2D 4.18 cm [ 4.20 - 5.80 ] AV Peak PG 11 mmHg LVIDs 2D 2.20 cm [ 2.50 - 4.00 ] AV VTI 40.20 cm LVPWd 2D 1.12 cm [ 0.60 - 1.00 ] LVOT Diam 2.00 cm [ 1.70 - 2.10 ] IVSd 2D 1.24 cm [ 0.60 - 1.00 ] LVOT [place] 1.03 m/s [ 0.70 - 1.10 ] AoR Diam 2D 3.37 cm [ 3.10 - 3.70 ] LVOT VTI 26.31 cm LA Volume 56.56 ml [ 18.00 - 58.00 ] MV E [place] 1.10 m/s [ 0.60 - 1.30 ] LA Volume Index 29 cc/m2 [ 16 - 28 ] MV A [place] 1.35 m/s [ 1.00 - 1.20 ] RA Volume 33.50 ml MV Decel Time 195 msec [ 104 - 258 ] PV [place] 1.12 m/s [ 0.40 - 0.80 ] TR [place] 2.62 m/s [ 1.00 - 2.80 ] TR Peak PG 27 mmHg RV S` 15.10 mmHg Lateral E` 0.06 m/s [ 0.10 - 0.15 ] Septal E` 0.07 m/s [ 0.08 - 0.15 ] E` 0.06 m/s E/E` 18 Tapse 2.45 cm [ 1.71 - 5.00 ] 2D/MM Value Range Doppler Value Range - FINDINGS: Interpretation Site: Exam was interpreted at [facility]. Left Ventricle: Normal left ventricular size. Definity contrast agent used to visually enhance endocardial wall motion and contractility. Lot Number: [id number]. Hyperdynamic left ventricular function. No focal wall motion abnormalities. Impaired diastolic relaxation Grade I. Ejection fraction is measured at 76 %. Ejection Fraction is visually estimated to be 75 %. Global Longitudinal Strain is -17 %. Right Ventricle: Normal right ventricular size. Left Atrium: The left atrium is normal in size. Right Atrium: The right atrium is normal in size. Atrial Septum: Normal atrial septum. Mitral Valve: Normal appearance of the mitral valve. Mild mitral valve regurgitation. Aortic Valve: Normal appearance of the aortic valve. Tricuspid Valve: Normal appearance of the tricuspid valve. Pulmonic Valve: Pulmonic valve not well visualized. Pericardium: Normal pericardium with no significant pericardial effusion. Aorta: Normal aortic root. IVC: Normal size and normal respiratory collapse consistent with normal right atrial pressure (<5 mmHg). Pulmonary Artery: Normal pulmonary artery size. CONCLUSIONS: Normal left ventricular size. Definity contrast agent used to visually enhance endocardial wall motion and contractility. Lot Number: [id number]. Hyperdynamic left ventricular function. No focal wall motion abnormalities. Impaired diastolic relaxation Grade I. Ejection fraction is measured at 76 %. Ejection Fraction is visually estimated to be 75 %. Global Longitudinal Strain is -17 %. The left atrium is normal in size. Normal appearance of the mitral valve. Mild mitral valve regurgitation. Normal appearance of the aortic valve. Electronically Signed By: Ishan Rodriguez MD, [facility] 07/24/2025 4:39:52 PM HEEL COVER SPLITTER Procedure Note Ishan Rodriguez MD - 07/24/2025 [facility]iology [address] [facility] [address], [place] [address] [address] [facility] [address], [place] [address] P:[phone] P:[phone] Echocardiographic Report Patient Name: MAEVE Deena STAFFORD : 1950 Study Date: 07/24/2025 9:26:41 AM Sex: M Dormitory Counselor: Urmila Barrientos)(CT), [facility] Location: [facility] Provider: SUGAR JOLLY Height(Cm): 168 BSA: 1.97 Weight(Kg): 83.5 Heart Rate: 102 BP: 122 / 56 Quality: Good Order Provider: SUGAR JOLLY PROCEDURES: Echocardiographic Report: Transthoracic echocardiogram with complete 2D, M-Mode, color Dopplerexamination and Definity contrast. With Strain Analysis. INDICATIONS: I25.10 Atherosclerotic heart disease of kotlik coronary artery withoutangina pectoris and R06.09 Other forms of dyspnea. MEASUREMENTS: 2D/MM Value Range Doppler ValueRange EF Mod BP 76 % [ 52 - 72 ] DIOMEDES Vmax 1.99cm2 [ 2.00 - 4.00 ] Estimated EF 75 % AV Mean PG 6mmHg LV GLS -16.71 % AV [place] 1.62m/s [ 1.00 - 1.70 ] LVIDd 2D 4.18 cm [ 4.20 - 5.80 ] AV Peak PG 11mmHg LVIDs 2D 2.20 cm [ 2.50 - 4.00 ] AV VTI 40.20cm LVPWd 2D 1.12 cm [ 0.60 - 1.00 ] LVOT Diam 2.00cm [ 1.70 - 2.10 ] IVSd 2D 1.24 cm [ 0.60 - 1.00 ] LVOT [place] 1.03m/s [ 0.70 - 1.10 ] AoR Diam 2D 3.37 cm [ 3.10 - 3.70 ] LVOT VTI 26.31cm LA Volume 56.56 ml [ 18.00 - 58.00 ] MV E [place] 1.10m/s [ 0.60 - 1.30 ] LA Volume Index 29 cc/m2 [ 16 - 28 ] MV A [place] 1.35m/s [ 1.00 - 1.20 ] RA Volume 33.50 ml MV Decel Time 195msec [ 104 - 258 ] PV [place] 1.12 m/s [ 0.40 - 0.80 ] TR [place] 2.62 m/s [ 1.00 - 2.80 ] TR Peak PG 27 mmHg RV S` 15.10 mmHg Lateral E` 0.06 m/s [ 0.10 - 0.15 ] Septal E` 0.07 m/s [ 0.08 - 0.15 ] E` 0.06 m/s E/E` 18 Tapse 2.45 cm [ 1.71 - 5.00 ] 2D/MM Value Range Doppler ValueRange - FINDINGS: Interpretation Site: Exam was interpreted at [facility]. Left Ventricle: Normal left ventricular size. Definity contrast agent used to visuallyenhance endocardial wall motion and contractility. Lot Number: [id number]. Hyperdynamicleft ventricular function. No focal wall motion abnormalities. Impaireddiastolic relaxation Grade I. Ejection fraction is measured at 76 %. Ejection Fraction isvisually estimated to be 75 %. Global Longitudinal Strain is -17 %. Right Ventricle: Normal right ventricular size. Left Atrium: The left atrium is normal in size. Right Atrium: The right atrium is normal in size. Atrial Septum: Normal atrial septum. Mitral Valve: Normal appearance of the mitral valve. Mild mitral valve regurgitation. Aortic Valve: Normal appearance of the aortic valve. Tricuspid Valve: Normal appearance of the tricuspid valve. Pulmonic Valve: Pulmonic valve not well visualized. Pericardium: Normal pericardium with no significant pericardial effusion. Aorta: Normal aortic root. IVC: Normal size and normal respiratory collapse consistent with normal rightatrial pressure (<5 mmHg). Pulmonary Artery: Normal pulmonary artery size. CONCLUSIONS: Normal left ventricular size. Definity contrast agent used to visuallyenhance endocardial wall motion and contractility. Lot Number: [id number]. Hyperdynamicleft ventricular function. No focal wall motion abnormalities. Impaireddiastolic relaxation Grade I. Ejection fraction is measured at 76 %. Ejection Fraction isvisually estimated to be 75 %. Global Longitudinal Strain is -17 %. The left atrium is normal in size. Normal appearance of the mitral valve. Mild mitral valve regurgitation. Normal appearance of the aortic valve. 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 JARA (dyspnea on exertion) Other dyspnea and respiratory abnormality Retention of urine Unspecified retention of urine documented in this encounter Administered Medications Inactive Administered Medications - up to 3 most recent administrations Medication Order MAR Action Action Date Dose Rate Site perflutren lipid (DEFINITY) 1.5 mL in sodium chloride 0.9% 10 mL syringe 1-10 mL, intravenous, Once in imaging, contrast, Starting on 07/24/25 at 1013, For 1 dose, Intra-Procedure (CV) Contrast Given 07/24/2025 10:16 AM HEEL COVER SPLITTER 2 mL documented in this encounter Orders Medications Ordered That [employer] ht Not Have Been Administered Count Last Ordered Date First Ordered Date perflutren lipid (DEFINITY) 1.5 mL in sodium chloride 0.9% 10 mL syringe 1 07/24/2025 documented in this encounter Care Teams Die Sizer Relationship Specialty Start Date End Date Fuentes Orellana MD PCP - General 11/28/16 Itz Iyer MD [address] [address] Consulting Physician Urology 05/31/18 Shawnee Mckinney MD [address] [facility] [address] [place] [address] Referring Physician Urology 06/03/18 Chicho Clayton MD [address] [facility] [address] [place] [address] Medical Oncologist/Hematologis t Medical Oncology 06/07/18 Maria Guadalupe Palacios, RN Registered Nurse 06/10/18 Lupillo Davenport MD Referring Physician Radiation Oncology 06/16/18 Danis Meza NP [address] [facility] [address] [place] [address] Nurse Practitioner Urology 10/06/22 Antonette Owens NP [address] [facility] [address] [place] [address] Nurse Practitioner Cardiovascular Disease 10/06/22 Aniceto Foley MD [id number] [place] [address] Surgeon Vascular Surgery 10/31/22 documented as of this encounter
--- OUTSIDE RECORDS SUMMARY | 2025-07-24 11:15 | XMS_ITS | Encounter Summary ---
Author Organization [facility] Healthcare Address [address] [place] [address] Care Team Providers Care Administration Clerk Name Role Phone Fuentes Orellana MD Primary Care Provider + [phone] Itz Iyer MD Unavailable [phone] Shawnee Mckinney MD Unavailable [phone] Chicho Claytno MD Unavailable Maria Guadalupe Palacios RN Unavailable Unava ilable Lupillo Davenport MD Unavailable [phone] Danis Meza NP Unavailable [phone] Antonette Owens NP Unavailable Aniceto Foley MD Unavailable [phone] Reason for Visit * Diagnostic Imaging (Routine) - Closed Specialty Diagnoses / Procedures Referred By Contac t Referred To Contact Diagnoses Coronary artery disease involving [place] coronary artery of [place] heart without angina pectoris JARA (dyspnea on exertion) Procedures NM MPI SPECT (Rest and/or Stress) Multiple Studies HI TC99M Sugar Ramirez, MARÍA [address] [address] Phone: tel: fax: [facility] Cardiology [address] [place] [address] Phone: tel: fax: Referral ID Status Reason Start Date Expiration Date Visits Re quested Visits Authorized [id number] Closed 07/13/2025 08/12/2026 1 1 Encounter Details Date Type Department Care Team (Latest Contact Info) Description 07/24/2025 11:15 AM CELLAR PUMPER Ancillary Procedure [facility] [address] [place] [address] Coronary artery disease involving [place] coronary artery of [place] heart without angina pectoris; JARA (dyspnea on exertion) Social History Tobacco Use Types Packs/Day Years Used Date Smoking Tobacco: Former Cigarettes 1.5 19 1 966 - 1984 Passive Smoke Exposure: Past Smokeless Tobacco: Never Alcohol Use Standard Drinks/Week Comments Yes 4 (1 standard drink = 0.6 oz pur e alcohol) [facility] Utilities Answer Date Recorded In the past 12 months has e electric, gas, oil, or water company [...] any clubs o r organizations such as zoroastrian groups, unions, fraternal or athletic groups, or [...] any time in the past 12 m [facility], were you homeless or living in a halfway (including now)? No 11/11/2024 AUDIT-C Answer Date [...] on file Legal Sex Male 12:32 AM CELLAR PUMPER Gender Identity Not on file Sexual Orientation Choose not to disclose 2018 8:58 AM CDT Occupation Industry Job 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 Date retired Not on file Not on file Not on file documented as of this encounter Plan of Treatment Upcoming Encounters Date Type Department Care Team (Latest Contact Info) Description 08/30/2025 7:30 AM CELLAR PUMPER Hospital Encounter [facility] Operating Room [address] [place] [phone] [place] [address] [place] [address] 08/30/2025 7:30 AM CELLAR PUMPER - 08/30/2025 10:30 AM CELLAR PUMPER Surgery [facility] Operating Room [address] [place] [phone] [place] [address] [place] [address] Revision Artificial Urinary Sphincter Scheduled Procedures Name Priority Associated Diagnoses Date/Ti me REVISION ARTIFICIAL URINARY SPHINCTER Retention of urine 08/30/2025 7:30 AM CELLAR PUMPER documented as of this encounter Procedures Procedure Name Priority Date/Time Associated Diagnosis Comments NM MPI SPECT (REST AND/OR STRESS) MULTIPLE STUDIES Schedule Routine, Read Routine (OP Routine) 07/24/2025 11:27 AM CELLAR PUMPER Coronary artery disease involving [place] coronary artery of [place] heart without angina pectoris JARA (dyspnea on exertion) documented in this encounter Results * NM MPI SPECT (Rest and/or Stress) Multiple Studies (07/24/2025 11:27 AM CELLAR PUMPER) Anatomical Region Laterality Modality Body N/A Nuclear Medicine 07/24/2025 8:57 AM CELLAR PUMPER Narrative 07/24/2025 6:27 PM CELLAR PUMPER [facility]iology [address] [place] [address] [place] [address] [address] [facility] [address], [place] [address] [address] , [place] [address] P:[phone] P:[phone] MPI Imaging Report Patient Name: RIVERA FREEMAN E : 1950 Study Date: 07/24/2025 8:57:52 AM Sex: M Tech: OSITO JORGE Location: [facility] Provider: SUGAR JOLLY Height(Cm): 167.6 BSA: Weight(Kg): 83.5 BMI: 29.73 Order Provider: SUGAR JOLLY PHYSICIAN: Primary Care Physician: Dr. Orellana. Stress Supervision: Ishan Rodriguez M.D.,Bonnie Stress Interpreting Physician: Ishan Rodriguez M.D.,Gerri. PROCEDURES: Pharmacologic SPECT Report: Myocardial perfusion imaging with Tc99M Sestamibi SPECT at rest and stress post regadenoson (Lexiscan) infusion. INDICATIONS: Chest Pain, Hypertension, Diabetes, Family Hx CAD, High Cholesterol, Former Smoker, I25.10 Atherosclerotic heart disease of [place] coronary artery without angina pectoris, and R06.09 Other forms of dyspnea. FINDINGS: Procedural Findings: One day rest/stress was used. Tc99m Sestamibi injected IV at rest was 10.4 millicuries 32.8 millicuries of Tc99M Sestamibi injected IV during Lexiscan stress Lexiscan 0.4mg administered IV over 10 seconds. Patient had no symptoms during stress test. Baseline heart rate was 66 BPM Maximum Heart Rate Achieved was: 97 BPM Baseline blood pressure was 122/58 mmHg Post Stress Blood Pressure was 131/56 mmHg Termination: Protocol complete. Resting ECG: Normal sinus rhythm. Sinus rhythm , normal ECG. Post ECG: No diagnostic ST changes. Perfusion Findings: Normal perfusion imaging. No definite fixed or reversible defects. A TID of 0.94 was automatically calculated. LV Function: Global left ventricular function is normal. Left ventricular ejection fraction is 73 %. CONCLUSIONS: Normal sinus rhythm Sinus rhythm , normal ECG. No diagnostic ST changes. Global left ventricular function is normal. Left ventricular ejection fraction is 73 %. Normal perfusion imaging. No definite fixed or reversible defects. A TID of 0.94 was automatically calculated. Electronically Signed By: Ishan Rodriguez MD, [facility] 07/24/2025 5:25:18 PM CELLAR PUMPER Electronically Signed By: Ishan Rodriguez MD, [facility] 07/24/2025 5:25:18 PM CELLAR PUMPER Procedure Note Ishan Rodriguez MD - 07/24/2025 [facility] Cardiology [address] [facility] [address], [place] [address] [address] [facility] [address], [place] [address], [place] [address] P:[phone] P:[phone] MPI Imaging Report Patient Name: RIVERA FREEMAN E : 1950 Study Date: 07/24/2025 8:57:52 AM Sex: M Tech: [facility] Location: [facility] Provider: SUGAR JOLLY Height(Cm): 167.6 BSA: Weight(Kg): 83.5 BMI: 29.73 Order Provider: SUGAR JOLLY PHYSICIAN: Primary Care Physician: Dr. Orellana. Stress Supervision: Ishan Lowery M.D.,F.A.C.C. Stress Interpreting Physician: Ishan Rodriguez M.D.,F.A.C.C. PROCEDURES: Pharmacologic SPECT Report: Myocardial perfusion imaging with Tc99M Sestamibi SPECT at rest and stresspost regadenoson (Lexiscan) infusion. INDICATIONS: Chest Pain, Hypertension, Diabetes, Family Hx CAD, High Cholesterol,Former Smoker, I25.10 Atherosclerotic heart disease of [place] coronary artery withoutangina pectoris, and R06.09 Other forms of dyspnea. FINDINGS: Procedural Findings: One day rest/stress was used. Tc99m Sestamibi injected IV at rest was 10.4 millicuries 32.8 millicuries of Tc99M Sestamibi injected IV during Lexiscan stress Lexiscan 0.4mg administered IV over 10 seconds. Patient had no symptoms during stress test. Baseline heart rate was 66 BPM Maximum Heart Rate Achieved was: 97 BPM Baseline blood pressure was 122/58 mmHg Post Stress Blood Pressure was 131/56 mmHg Termination: Protocol complete. Resting ECG: Normal sinus rhythm. Sinus rhythm , normal ECG. Post ECG: No diagnostic ST changes. Perfusion Findings: Normal perfusion imaging. No definite fixed or reversible defects. A TIDof 0.94 was automatically calculated. LV Function: Global left ventricular function is normal. Left ventricular ejectionfraction is 73 %. CONCLUSIONS: Normal sinus rhythm Sinus rhythm , normal ECG. No diagnostic ST changes. Global left ventricular function is normal. Left ventricular ejectionfraction is 73 %. Normal perfusion imaging. No definite fixed or reversible defects. A TIDof 0.94 was automatically calculated. Electronically Signed By: Ishan Rodriguez MD, [facility] 07/24/2025 5:25:18 PM CELLAR PUMPER Electronically Signed By: Ishan Rodriguez MD, [facility] 07/24/2025 5:25:18 PM CELLAR PUMPER Sugar Jolly NP IMG NM PROCEDURES Delia l Result documented in this encounter Visit Diagnoses Diagnosis Retention of urine- Primary Unspecified retention of urine Coronary artery disease involving [place] coronary artery of [place] heart without angina pectoris JARA (dyspnea on exertion) Other dyspnea and respiratory abnormality Retention of urine Unspecified retention of urine documented in this encounter Administered Medications Inactive Administered Medications - up to 3 most recent administrations Medication Order MAR Action Action Date Dose Rate Site regadenoson (LEXISCAN) 0.4 mg/5 mL injection 0.4 mg 0.4 mg, intravenous, Once, On Thu07/24/25 at 1200, For 1 dose, Administer IV push over 10 seconds., Indications: Myocardial Perfusion Imaging AdjunctIndications:Myocard ial Perfusion Imaging Adjunct Given 07/24/2025 11:27 AM CELLAR PUMPER 0.4 mg Tc-99m sestamibi unit dose injection 10.4 millicurie 10.4 millicurie, intravenous, Once in imaging, radiopharmaceutical, Starting on Thu07/24/25 at 0917, For 1 dose, Indications: Diagnostic RadiographyIndications:Lily gnostic Radiography Given 07/24/2025 9:17 AM CELLAR PUMPER 10.4 millicuries Tc-99m sestamibi unit dose injection 32.8 millicurie 32.8 millicurie, intravenous, Once in imaging, radiopharmaceutical, Starting on 07/24/25 at 1127, For 1 dose, Indications: Diagnostic RadiographyIndications:Lily gnostic Radiography Given 07/24/2025 11:28 AM CELLAR PUMPER 32.8 millicuries documented in this encounter Care Teams Administration Clerk Relationship Specialty Start Date End Date Fuentes Orellana MD PCP - General 11/28/16 Itz Iyer MD [address] [address] Consulting Physician Urology 05/31/18 Shawnee Mckinney MD [address] [facility] [address] [place] [address] Referring Physician Urology 06/03/18 Chicho Clayton MD [address] [facility] [address] [place] [address] Medical Oncologist/Hematologis t Medical Oncology 06/07/18 Maria Guadalupe Palacios, RN Registered Nurse 06/10/18 Lupillo Davenport MD Referring Physician Radiation Oncology 06/16/18 Danis Meza NP [address] [facility] [address] [place] [address] Nurse Practitioner Urology 10/06/22 Antonette Owens NP [address] [facility] [address] [place] [address] Nurse Practitioner Cardiovascular Disease 10/06/22 Aniceto Foley MD [address] [place] [address] Surgeon Vascular Surgery 10/31/22 documented as of this encounter
--- NOTE | ~2025-07-25 | CT_ITS ---
EXAMINATION: CT abdomen pelvis wo con DATE: 07/30/2025 10:52 INDICATION: Urinary retention. TECHNIQUE: Computed tomography (CT) of the abdomen and pelvis was performed without intravenous contrast. Automated exposure control and iterative reconstruction technique were employed. The dose-length product was 611.78 mGy-cm. COMPARISON: CT abdomen and pelvis 07/26/2025 FINDINGS: The visualized portions of the lung bases demonstrate minimal atelectasis. No pleural effusion. The heart size is normal. There are coronary artery calcifications. No pericardial effusion. There is a small sliding hiatal hernia. The liver, gallbladder, spleen, pancreas, adrenal glands, and kidneys are normal. There is no urolithiasis. The bladder is decompressed. There is calcified atherosclerosis of the aorta and many of the other arteries. There are stents in the common iliac arteries and right external iliac artery. A penile prosthesis is noted. There is diverticulosis of the colon without evidence of diverticulitis. The appendix is normal. There are no dilated loops of bowel. There are no pathologically enlarged lymph nodes. There is no free intraperitoneal fluid. There is a chronic compression fracture of L4. There is severe lumbar spondylosis. IMPRESSION: 1. Small sliding hiatal hernia. Reviewed, dictated and finalized at location E. BOARD PANEL PRINTER
--- NOTE | ~2025-07-25 | CT_ITS ---
EXAMINATION: CT abdomen pelvis w con DATE: 07/26/2025 16:23 INDICATION: 74-year-old with pelvic pain. TECHNIQUE: Computed tomography (CT) of the abdomen and pelvis was performed with 100 cc of intravenous contrast. Automated exposure control and iterative reconstruction technique were employed. The dose-length product was 720.37 mGy-cm. COMPARISON: CT dated 05/04/2025. FINDINGS: Lung bases do not show acute findings. Cardiomegaly is noted with significant left ventricular hypertrophy. No focal lesions of liver and spleen. Gallbladder, pancreas do not show acute findings. The kidneys do not show calculi are obstruction. Severe atherosclerotic disease of abdominal aorta is noted including severe atherosclerotic stenosis at the origin of celiac axis and superior mesenteric artery. Severe atherosclerotic stenosis of the origin of renal arteries is noted. Aortic endograft is in place with graft extending to the iliac arteries. Total prostatectomy is noted. Penile prosthesis is in place. No free fluid or free air in the peritoneal cavity. IMPRESSION: 1. No acute findings on the CT examination. No bowel obstruction, free fluid or free air. 2. Abdominal aortic iliac stent grafts are in place. 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 The again left ventricular hypertrophy. 3. Postoperative changes of prostatectomy and penile implant placement. Reviewed, dictated and finalized at location T. ICE TRANSFORMER REPAIR SUPERVISOR IMPRESSION: 1. No acute findings on the CT examination. No bowel obstruction, free fluid or free air. 2. Abdominal aortic iliac stent grafts are in place. Severe calcific atheroscle rotic stenosis at the origin of celiac axis, superior mesenteric artery and endy al arteries are noted. The again left ventricular hypertrophy. 3. Postoperative changes of prostatectomy and penile implant placement.
--- NOTE | ~2025-07-25 | US_ITS ---
Examination: Ultrasound of the retroperitoneum including kidneys and bladder. Clinical History: rising creatinine . Comparison: CT abdomen and pelvis 2 days prior. Findings: Right kidney: 10 cm. Normal echogenicity. No collecting system dilatation. No shadowing calculi. Left kidney: 10 cm. Normal echogenicity. No collecting system dilatation. No shadowing calculi. Urinary bladder: No wall thickening or focal abnormality. Penile implant reservoir lower abdomen. IMPRESSION: 1. No hydronephrosis. Reviewed, dictated and finalized at location R. FACTURING MAINTENANCE MECHANIC IMPRESSION: 1. No hydronephrosis.
--- OUTSIDE RECORDS SUMMARY | 2025-07-25 10:00 | XMS_ITS | Encounter Summary ---
Author Organization [facility] Address [address] [place] [address] Phone Care Team Providers Care Switching Operator Name Role Phone Fuentes Orellana MD Primary Care Provider [phone] Itz Iyer MD Unavailable [phone] Shawnee Mckinney MD Unavailable [phone] Chicho Clayton MD Unavailable Maria Guadalupe Palacios RN Unavailable Unava ilable Lupillo Davenport MD Unavailable [phone] Danis Meza NP Unavailable [phone] Antonette Owens NP Unavailable Aniceto Foley MD Unavailable [phone] Encounter Details Date Type Department Care Team (Late st Contact Info) Description 07/25/2025 10:00 AM FILM LIBRARY CLERK Lab [facility] Medicine Oncology Lab [address] [facility] [address] [place] [address] Prostate cancer (HCC) Social History Tobacco Use Types Packs/Day Years Used Date Smoking Tobacco: Former Cigarettes 1.5 19 1 966 - 1984 Passive Smoke Exposure: Past Smokeless Tobacco: Never Alcohol Use Standard Drinks/Week Comments Yes 4 (1 standard drink = 0.6 oz pur e alcohol) [facility] Utilities Answer Date Recorded In the past 12 months has [employer], gas, oil, or water [employer] threatened to shut off services in your [...] any clubs o r organizations such as confucianism groups, unions, fraternal or athletic groups, or [...] any time in the past 12 m [facility], were you homeless or living in a [...] file Legal Sex Male 12:32 AM FILM LIBRARY CLERK Gender Identity Not on file Sexual Orientation Choose not to disclose 2018 8:58 AM CDT Occupation Industry Job 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 Date retired Not on file Not on file Not on file documented as of this encounter Functional Status documented as of this encounter Plan of Treatment Upcoming Encounters Date Type Department Care Team (Latest Contact Info) Description 08/30/2025 7:30 AM FILM LIBRARY CLERK Hospital Encounter [facility] Operating Room [address] [place] [phone] [place] [address] [place] [address] 08/30/2025 7:30 AM FILM LIBRARY CLERK - 08/30/2025 10:30 AM FILM LIBRARY CLERK Surgery [facility] Operating Room [address] [place] [phone] [place] [address] [place] [address] Revision Artificial Urinary Sphincter Scheduled Procedures Name Priority Associated Diagnoses Date/Ti me REVISION ARTIFICIAL URINARY SPHINCTER Retention of urine 08/30/2025 7:30 AM FILM LIBRARY CLERK documented as of this encounter Visit Diagnoses Diagnosis Retention of urine- Primary Unspecified retention of urine Prostate cancer (HCC) Malignant neoplasm of prostate Retention of urine Unspecified retention of urine documented in this encounter Orders Appointment Requests Count Last Ordered Date Fi rst Ordered Date ONCBCN LAB APPOINTMENT 1 07/25/2025 documented in this encounter Care Teams Switching Operator Relationship Specialty Start Date End Date Fuentes Orellana MD PCP - General 11/28/16 Itz Iyer MD [address] [place] [address] Consulting Physician Urology 05/31/18 Shawnee Mckinney MD [address] [facility] [address] [place] [address] Referring Physician Urology 06/03/18 Chicho Clayton MD [address] [facility] [address] [place] [address] Medical Oncologist/Hematologis t Medical Oncology 06/07/18 Maria Guadalupe Palacios, RN Registered Nurse 06/10/18 Lupillo Davenport MD Referring Physician Radiation Oncology 06/16/18 Danis Meza NP [address] [facility] [address] [place] [address] Nurse Practitioner Urology 10/06/22 Antonette Owens NP [address] [facility] [address] [place] [address] Nurse Practitioner Cardiovascular Disease 10/06/22 Aniceto Foley MD [address] [place] [address] Surgeon Vascular Surgery 10/31/22 documented as of this encounter
--- OUTSIDE RECORDS SUMMARY | 2025-07-25 10:15 | XMS_ITS | Encounter Summary ---
Author Organization [facility] Healthcare Address [address] [place] [address] Care Team Providers Care Radial Drill Press Set Up Operator Name Role Phone Fuentes Orellana MD Primary Care Provider [phone] Itz Iyer MD Unavailable [phone] Shawnee Mckinney MD Unavailable [phone] Chicho Clayton MD Unavailable Maria Guadalupe Palacios RN Unavailable Unava ilable Lupillo Davenport MD Unavailable [phone] Danis Meza SOLAR PHOTOVOLTAIC CREW LEAD Unavailable [phone] Antonette Owens NP Unavailable Aniceto Foley MD Unavailable [phone] Encounter Details Date Type Department Care Team (Late st Contact Info) Description 07/25/2025 10:15 AM SHOP TAILOR APPRENTICE Lab [facility] - Lab Collection [address] [facility] Floor 5 [place] [address] Prostate cancer (HCC) Social History Tobacco Use Types Packs/Day Years Used Date Smoking Tobacco: Former Cigarettes 1.5 19 1 966 - 1984 Passive Smoke Exposure: Past Smokeless Tobacco: Never Alcohol Use Standard Drinks/Week Comments Yes 4 (1 standard drink = 0.6 oz pur e alcohol) [facility] Utilities Answer Date Recorded In the past 12 months has [employer] electric, gas, oil, or water company threatened [...] were you homeless or living in a nursing home (including now)? No 11/11/2024 AUDIT-C Answer [...] on file Legal Sex Male 12:32 AM SHOP TAILOR APPRENTICE Gender Identity Not on file Sexual Orientation Choose not to disclose 2018 8:58 AM CDT Occupation Industry Job 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 Date retired Not on file Not on file Not on file documented as of this encounter Functional Status documented as of this encounter Plan of Treatment Upcoming Encounters Date Type Department Care Team (Latest Contact Info) Description 08/30/2025 7:30 AM SHOP TAILOR APPRENTICE Hospital Encounter [facility] Operating Room [address] [place] [phone] [place] [address] [place] [address] 08/30/2025 7:30 AM SHOP TAILOR APPRENTICE - 08/30/2025 10:30 AM SHOP TAILOR APPRENTICE Surgery [facility] Operating Room [address] [place] [phone] [place] [address] [place] [address] Revision Artificial Urinary Sphincter Scheduled Procedures Name Priority Associated Diagnoses Date/Ti me REVISION ARTIFICIAL URINARY SPHINCTER Retention of urine 08/30/2025 7:30 AM SHOP TAILOR APPRENTICE documented as of this encounter Procedures Procedure Name Priority Date/Time Associated Diagnosis Comments EGFR Routine 07/25/2025 10:13 AM SHOP TAILOR APPRENTICE Prostate cancer (HCC) DIFFERENTIAL AUTO Routine 07/25/2025 10: 13 AM SHOP TAILOR APPRENTICE Prostate cancer (HCC) CBC WITH AUTO DIFFERENTIAL Routine 07/25/2025 10:13 AM SHOP TAILOR APPRENTICE Prostate cancer (HCC) PSA DIAGNOSTIC Routine 07/25/2025 10:13 AM SHOP TAILOR APPRENTICE Prostate cancer (HCC) LACTATE DEHYDROGENASE Routine 07/25/2025 10:13 AM SHOP TAILOR APPRENTICE Prostate cancer (HCC) HEMOGLOBIN A1C Routine 07/25/2025 10:13 AM SHOP TAILOR APPRENTICE Prostate cancer (HCC) COMPREHENSIVE METABOLIC PANEL Routine 07/25/2025 10:13 AM SHOP TAILOR APPRENTICE Prostate cancer (HCC) documented in this encounter Results * (ABNORMAL) eGFR (07/25/2025 10:13 AM SHOP TAILOR APPRENTICE) eGFR 49(L) >=60 mL/min/1. 73 m2 Comment: Interpretive Data [...] interpretive data was last reviewed 2021. Blood 07/25/2025 10:1 3 AM SHOP TAILOR APPRENTICE 07/25/2025 10:18 AM SHOP TAILOR APPRENTICE us Chicho Clayton MD LAB BLOOD ORDERABLES Final Resul t [facility] One [facility] [place] [address] * Differential, auto (07/25/2025 10:13 AM SHOP TAILOR APPRENTICE) Pathologist [facility] Neutrophil abs 4.34 1.50 - 6.50 K/cumm Comment:Testing performed by : [facility], [address] [place] [phone] Lymphocyte abs 1.21 0.80 - 3.30 K/cumm [facility] Comment:Testing performed by : [facility], [address] [place], [place] [phone] Monocyte abs 0.36 0.20 - 0.80 K/cumm [facility] Comment:Testing performed by : [facility], [address] [place], [place] [phone] Eosinophil abs 0.17 0.00 - 0.50 K/cumm [facility] Comment:Testing performed by : [facility], [address] [place] [phone] Basophil abs 0.07 0.00 - 0.10 K/cumm [facility] Comment:Testing performed by : [facility], [address] [place] [phone] Neutrophil pct 70.7 % [facility] Comment: Interpretive Data Percent cell count reference ranges are not reported, since discordance with absolute values may lead to misinterpretation of CBC data. Current Interpretive Data was last revised on 2017. Testing performed by: [facility], [address] [place] [phone] Lymphocyte pct 19.6 % [facility] Comment: Interpretive Data Percent cell count reference ranges are not reported, since discordance with absolute values may lead to misinterpretation of CBC data. Current Interpretive Data was last revised on 2017. Testing performed by: [facility], [address] [place] [phone] Monocyte pct 5.8 % [facility] Comment: Interpretive Data Percent cell count reference ranges are not reported, since discordance with absolute values may lead to misinterpretation of CBC data. Current Interpretive Data was last revised on 2017. Testing performed by: [facility], [address] [place] [phone] Eosinophil pct 2.8 % [facility] Comment: Interpretive Data Percent cell count reference ranges are not reported, since discordance with absolute values may lead to misinterpretation of CBC data. Current Interpretive Data was last revised on 2017. Testing performed by: [facility], [address] [place] [phone] Basophil pct 1.1 % [facility] Comment: Interpretive Data Percent cell count reference ranges are not reported, since discordance with absolute values may lead to misinterpretation of CBC data. Current Interpretive Data was last revised on 2017. Testing performed by: [facility], [address] [place] [phone] Blood 07/25/2025 10:1 3 AM SHOP TAILOR APPRENTICE 07/25/2025 10:18 AM SHOP TAILOR APPRENTICE us Chicho Clayton MD LAB BLOOD ORDERABLES Final Resul t Performing Organization Address [facility] de Phone Number [facility] [employer] [place] [address] * (ABNORMAL) Hemoglobin A1c (07/25/2025 10:13 AM SHOP TAILOR APPRENTICE) Hgb A1C 7.1(H) 4.0 - 5.6 % Estimated Average Glucose 157 mg/dL [facility] Comment: The ADA recommends reporting an estimated Average Glucose (eAG) with all Hemoglobin A1c results using the equation derived from a study of 507 normal and diabetic adults. Minority populations were underrepresented and children were not included. (Diabetes Care 2020; 43(S1): S66-S76). The eAG is not equivalent to a fasting glucose. Blood 07/25/2025 10:1 3 AM SHOP TAILOR APPRENTICE 07/25/2025 10:22 AM SHOP TAILOR APPRENTICE us Chicho Clayton MD LAB BLOOD ORDERABLES Final Resul t Performing Organization Address [facility] de Phone Number [facility] [email or web address] [address] * (ABNORMAL) Comprehensive metabolic panel (07/25/2025 10:13 AM SHOP TAILOR APPRENTICE) Sodium 140 135 - 145 mmol/L Potassium, pl 4.4 3.3 - 4.9 mmol/L [facility] Chloride 107 97 - 110 mmol/L [facility] CO2 28 22 - 32 mmol/L [facility] Anion gap 5 2 - 15 mmol/L [facility] BUN 32(H) 6 - 25 mg/dL [facility] Creatinine 1.49(H) 0.80 - 1.30 mg/dL [facility] Glucose 237(H) 70 - 199 mg/dL [facility] Comment: Interpretive Data Fasting glucose >/= 126 [...] interpretive data was last revised 2022. Calcium 11.0(H) 8.5 - 10.3 mg/dL [facility] Bilirubin, total 0.2 0.1 - 1.2 mg/dL [facility] Protein, pl 6.8 6.5 - 8.5 g/dL [facility] Albumin 3.6 3.5 - 5.0 g/dL [facility] Alk phos 88 40 - 130 Units/L [facility] ALT 21 7 - 55 Units/L [facility] AST 19 10 - 50 Units/L [facility] Blood 07/25/2025 10:1 3 AM SHOP TAILOR APPRENTICE 07/25/2025 10:18 AM SHOP TAILOR APPRENTICE us Chicho Clayton MD LAB BLOOD ORDERABLES Final Resul t [facility] One [facility] Department [place] [address] * (ABNORMAL) CBC with auto differential (07/25/2025 10:13 AM SHOP TAILOR APPRENTICE) WBC 6.15 3.80 - 9.90 K/cumm Comment:Testing performed by : [facility], [address] [place] [address] Hgb 11.0(L) 13.0 - 17.5 g/dL [facility] Comment:Testing performed by : [facility], [address] [place] [address] Hct 33.3(L) 38.9 - 50.3 % [facility] Comment:Testing performed by : [facility], [address] [place] [address] Plt 162 150 - 400 K/cumm [facility] Comment:Testing performed by : [facility], [address] [place] [address] MPV 8.9 6.8 - 10.4 fL [facility] Comment:Testing performed by : [facility], [address] [place] [address] RBC 3.59(L) 4.30 - 5.80 M/cumm [facility] Comment:Testing performed by : [facility], [address] [place] [address] MCV 92.9 81.3 - 96.4 fL [facility] Comment:Testing performed by : [facility], [address] [place] [address] MCH 30.7 27.1 - 33.3 pg [facility] Comment:Testing performed by : [facility], [address] [place] [address] MCHC 33.0 32.3 - 35.7 g/dL [facility] Comment:Testing performed by : [facility], [address] [place] [address] RDW CV 15.1(H) 11.1 - 14.9 % [facility] Comment:Testing performed by : [facility], [address] [place] [address] NRBC abs 0.00 0.00 - 0.01 K/cumm [facility] Comment:Testing performed by : [facility], [address] [place] [phone] Blood 07/25/2025 10:1 3 AM SHOP TAILOR APPRENTICE 07/25/2025 10:18 AM SHOP TAILOR APPRENTICE us Chicho Clayton MD LAB BLOOD ORDERABLES Final Resul t Performing Organization Address City/[facility] de Phone Number [facility] Department [place] [address] * PSA diagnostic (07/25/2025 10:13 AM SHOP TAILOR APPRENTICE) PSA-Total 4.87 <=6.20 ng/mL Comment: Interpretive Data AGE SEX [...] Current interpretive data last revised 22. Blood 07/25/2025 10:1 3 AM SHOP TAILOR APPRENTICE 07/25/2025 10:18 AM SHOP TAILOR APPRENTICE us Chicho Clayton MD LAB BLOOD ORDERABLES Final Resul t Performing Organization Address [facility] de Phone Number [facility] Department [place] [address] * Lactate dehydrogenase (LD) (07/25/2025 10:13 AM SHOP TAILOR APPRENTICE) Lactate dehydrogenase (LDH) 122 100 - 250 Units/L Blood 07/25/2025 10:1 3 AM SHOP TAILOR APPRENTICE 07/25/2025 10:18 AM SHOP TAILOR APPRENTICE us Chicho Clayton MD LAB BLOOD ORDERABLES Final Resul t Performing Organization Address [facility] de Phone Number [facility] Department [place] [address] documented in this encounter Visit Diagnoses Diagnosis Retention of urine- Primary Unspecified retention of urine Prostate cancer (HCC) Malignant neoplasm of prostate Retention of urine Unspecified retention of urine documented in this encounter Care Teams Radial Drill Press Set Up Operator Relationship Specialty Start Date End Date Fuentes Orellana MD PCP - General 11/28/16 Itz Iyer MD [address] [facility] [address] [place] [address] [phone] Consulting Physician Urology 05/31/18 Shawnee Mckinney MD [address] [facility] [address] [place] [address] Referring Physician Urology 06/03/18 Chicho Clayton MD [address] [place] [address] Medical Oncologist/Hematologis t Medical Oncology 06/07/18 Maria Guadalupe Palacios, RN Registered Nurse 06/10/18 Lupillo Davenport MD Referring Physician Radiation Oncology 06/16/18 Danis Meza NP [address] [place] [address] Nurse Practitioner Urology 10/06/22 Antonette Owens NP [address] [place] [address] Nurse Practitioner Cardiovascular Disease 10/06/22 Aniceto Foley MD [id number] [place] [address] Surgeon Vascular Surgery 10/31/22 documented as of this encounter
--- OUTSIDE RECORDS SUMMARY | 2025-07-25 11:00 | XMS_ITS | Encounter Summary ---
Author Organization [employer] [facility] Address [address] [place] [address] Phone Care Team Providers Care Plastic Welder Name Role Phone Fuentes Orellana MD Primary Care Provider Itz Iyer MD Unavailable [phone] Shawnee Mckinney MD Unavailable [phone] Chicho Clayton MD Unavailable Maria Guadalupe Palacios RN Unavailable Unava ilable Lupillo Davenport MD Unavailable [phone] Danis Meza OFFICE MESSENGER Unavailable Antonette Owens NP Unavailable Aniceto Foley MD Unavailable [phone] Encounter Details Date Type Department Care Team (Late st Contact Info) Description 07/25/2025 11:00 AM PRESS FEEDER BROOMCORN Office Visit [facility] Medicine Oncology [address] [facility] [address] 5 [place] [address] Chicho Clayton MD [address] [facility] [address] [place] [address] Prostate cancer (HCC) (Primary Dx) Social History Tobacco Use Types Packs/Day Years Used Date Smoking Tobacco: Former Cigarettes 1.5 19 1 966 - 1984 Passive Smoke Exposure: Past Smokeless Tobacco: Never Alcohol Use Standard Drinks/Week Comments Yes 4 (1 standard drink = 0.6 oz pur e alcohol) [facility] Utilities Answer Date Recorded In the [...] often do you attend chur ch or alevism services? More than 4 times per year 11/11/2024 Do you belong to any clubs o r organizations such as scientologist groups, unions, fraternal or athletic groups, or [...] were you homeless or living in a detention (including now)? No 11/11/2024 AUDIT-C Answer Date [...] on file Legal Sex Male 12:32 AM PRESS FEEDER BROOMCORN Gender Identity Not on file Sexual Orientation Choose not to disclose 2018 8:58 AM CDT Occupation Industry Job 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 Date retired Not on file Not on file Not on file documented as of this encounter Last Filed Vital Signs Vital Sign Reading Time Taken Comments Blood Pressure 139/62 07/25/2025 10:26 AM PRESS FEEDER BROOMCORN Pulse 71 07/25/2025 10:26 AM PRESS FEEDER BROOMCORN Temperature 36.8 C (98.3 F) 07/25/2025 10:26 AM PRESS FEEDER BROOMCORN Respiratory Rate 18 07/25/2025 10:26 AM PRESS FEEDER BROOMCORN Oxygen Saturation 99% 07/25/2025 10:26 AM PRESS FEEDER BROOMCORN Inhaled Oxygen Concentration - - Weight 82.8 kg (182 lb 9.6 oz) 07/25/2025 10:26 AM PRESS FEEDER BROOMCORN Height 167.6 cm (5' 5.98) 07/25/2025 10:[address] Body Mass Index 29.49 07/25/2025 10:26 AM PRESS FEEDER BROOMCORN documented in this encounter Functional Status documented as of this encounter Progress Notes * Delfina Cordova NP - 07/25/2025 11:00 AM CST PATIENT NAME: RIVERA FREEMAN : 1950 [place]: 07/25/2025 Mr. Freeman is a 74 y.o. male with a history of biochemically recurrent prostate cancer. His prostate cancer history includes presenting with a PSA of 4.5 in 2004, leading to a biopsy demonstrating Mariana 6 disease. In March 2005, Dr. Iyer performed a radical prostatectomy, confirming his Mariana 6 disease with a positive urethral margin. He then underwent adjuvant radiation therapy in 2005provided by Dr. Weaver. By 2007, his PSA was back up over 1. We met the patient in 2017 with a PSAof 1.1. His PSA has continued to rise with a doubling time just short of 2 years. Restaging scans have shown no clear disease progression. 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 He was seen by a pain specialist who apparently helped considerably with this and he no longer has any pain. His other comorbidities include peripheral vascular disease, hyperlipidemia, hypertension, coronary artery disease, diabetes, CKD and poor hearing, which is congenital. He is followed routinely by many providers. INTERVAL HISTORY: Rivera Freeman returns for further f/u of biochemically recurrent prostate cancer, unaccompanied. The patient feels well. He denies any new bone pain or tenderness. He met with Dr. Meneses, his urologist, in March to discuss his urinary retention and incontinence (minimal), s/p AUS replaced in 11/03/24. He underwent a cystoscopy and there was some irritation around the sphincter cuff. Their plan is to exchange the cuff in July. Also in March, he underwent bilateral aorto iliac angiogram with bilateral stent placement d/t new bilateral LE claudication. Yesterday, he underwent a TTE and nuclear stress test. There was no evidence of ischemia or blockage. He does not exercise, but remains ac tive and independent in his ADL's. All other systems negative. PHYSICAL EXAM: BP 139/62 (BP Location: Right arm) Pulse 71 Temp 36.8 ??C (98.3 ??F) (Temporal) Resp 18 Ht 167.6 cm (5' 5.98) Wt 82.8 kg (182 lb 9.6 oz) SpO2 99% BMI 29.49 kg/m?? KPS: 80% Lymphatics: He has no palpable cervical or supraclavicular adenopathy. Cardiac: Shows an S1 and S2, with a regular rate and rhythm without murmurs. Lungs: Clear to auscultation and percussion. Abdomen: No hepatosplenomegaly or palpable masses. He has no abdominal tenderness. Extremities: No edema but he does have decreased pulses bilaterally. Neurologic: Poor hearing which has been present for over 70 years, but intact motor and sensory exams otherwise. Walks with a cane. LABORATORY DATA: CBC: Lab Results Component Value Date WBC 6.15 07/25/2025 HGB 11.0 (L) 07/25/2025 HCT 33.3 (L) 07/25/2025 LABPLAT 162 07/25/2025 NEUTROABS 4.34 07/25/2025 CMP: Lab Results Component Value Date SODIUM 140 07/25/2025 POTASSIUM 4.4 07/25/2025 BUNSER 32 (H) 07/25/2025 CREATININE 1.49 (H) 07/25/2025 GLUCOSE 237 (H) 07/25/2025 CALCIUM 11.0 (H) 07/25/2025 BILITOT 0.2 07/25/2025 ALKPHOS 88 07/25/2025 AST 19 07/25/2025 ALT 21 07/25/2025 TUMOR MARKERS: Lab Results Component Value Date PSA 4.87 07/25/2025 TESTOSTERONE 373 01/08/2021 LDH 122 07/25/2025 ASSESSMENT AND PLAN: Biochemically recurrent prostate cancer. Mr. Freeman was diagnosed with prostate cancer in 2004, and treated with a radical prostatectomy, followed by adjuvant radiation therapy in 2005. The patient has never received any systemic therapy. His doubling time is prolonged. We will hold off on additional scans at this time, but if his PSA should rise dramatically, we may reconsider. RTC: 6 months for further follow up. He is comfortable with this plan and will call the office withany issues in between office visits. Delfina Cordova ANP- Adult Nurse Practitioner Division of Medical Oncology [facility] Cosigned by Chicho Clayton MD at 07/25/2025 12:00 PM PRESS FEEDER BROOMCORN S FEEDER BROOMCORN S FEEDER BROOMCORN S FEEDER BROOMCORN documented in this encounter Plan of Treatment Upcoming Encounters Date Type Department Care Team (Latest Contact Info) Description 08/30/2025 7:30 AM PRESS FEEDER BROOMCORN Hospital Encounter [facility] Operating Room [facility] [place] [phone] [place] [address] [place] [address] 08/30/2025 7:30 AM PRESS FEEDER BROOMCORN - 08/30/2025 10:30 AM PRESS FEEDER BROOMCORN Surgery [facility] Operating Room [facility] [place] [phone] [place] [address] [place] [address] Revision Artificial Urinary Sphincter Scheduled Orders Name Type Priority Associated Diagnoses Orde r Schedule CBC with auto differential Lab Routine Prostate cancer ([facility]) Expected: 01/16/2026, Expires: 02/19/2026 Comprehensive metabolic panel Lab Routine Prostate cancer ([facility]) Expected: 01/16/2026, Expires: 02/19/2026 PSA diagnostic Lab Routine Prostate cancer ([facility]) Expected: 01/16/2026, Expires: 02/19/2026 Lactate dehydrogenase (LD) Lab Routine Prostate cancer ([facility]) Expected: 01/16/2026, Expires: 02/19/2026 Scheduled Procedures Name Priority Associated Diagnoses Date/Ti me REVISION ARTIFICIAL URINARY SPHINCTER Retention of urine 08/30/2025 7:30 AM PRESS FEEDER BROOMCORN documented as of this encounter Results * (ABNORMAL) Hemoglobin A1c (07/25/2025 10:13 AM PRESS FEEDER BROOMCORN) Hgb A1C 7.1(H) 4.0 - 5.6 % Estimated Average Glucose 157 mg/dL [facility] Comment: The ADA recommends reporting an estimated Average Glucose (eAG) with all Hemoglobin A1c results using the equation derived from a study of 507 normal and diabetic adults. Minority populations were underrepresented and children were not included. (Diabetes Care 2020; 43(S1): S66-S76). The eAG is not equivalent to a fasting glucose. Blood 07/25/2025 10:1 3 AM PRESS FEEDER BROOMCORN 07/25/2025 10:22 AM PRESS FEEDER BROOMCORN us Chicho Clayton MD LAB BLOOD ORDERABLES Final Resul t [facility] One [facility] [place] [address] documented in this encounter Visit Diagnoses Diagnosis Retention of urine- Primary Unspecified retention of urine Prostate cancer (HCC)- Primary Malignant neoplasm of prostate Retention of urine Unspecified retention of urine documented in this encounter Orders Appointment Requests Count Last Ordered Date Fi rst Ordered Date ONCBCN CLINIC APPOINTMENT REQUEST 2 025 ONCBCN LAB APPOINTMENT 1 07/25/2025 documented in this encounter Care Teams Plastic Welder Relationship Specialty Start Date End Date Fuentes Orellana MD PCP - General 11/28/16 Itz Iyer MD [address] [facility] [address] [place] [address] Consulting Physician Urology 05/31/18 Shawnee Mckinney MD [address] [facility] [address] [place] [address] Referring Physician Urology 06/03/18 Chicho Clayton MD [address] [facility] [address] [place] [address] Medical Oncologist/Hematologis t Medical Oncology 06/07/18 Maria Guadalupe Palacios RN Registered Nurse 06/10/18 Lupillo Davenport MD Referring Physician Radiation Oncology 06/16/18 Danis Meza NP [address] [facility] [address] [place] [address] Nurse Practitioner Urology 10/06/22 Antonette Owens NP [address] [place] [address] Nurse Practitioner Cardiovascular Disease 10/06/22 Aniceto Foley MD [address] [place] [address] Surgeon Vascular Surgery 10/31/22 documented as of this encounter
--- OUTSIDE RECORDS SUMMARY | 2025-07-25 21:42 | XMS_ITS | Encounter Summary ---
Author Organization [facility] Address [address] [place] [address] Phone Care Team Providers Care Supervisor Gluing Name Role Phone Fuentes Orellana MD Primary Care Provider Brent Dickinson DO Unavailable [phone] Faviola Jiménez CONSOLIDATION ACCOUNTANT, PET HANDLER Unavailable Shawnee Mckinney MD Unavailable Chicho Clayton MD Unavailable Lai Lambert CONSOLIDATION ACCOUNTANT, PET HANDLER Unavailable [phone] Kami Meneses MD Unavailable [phone] Anette Bond MD Unavailable [phone] Kay Gordon CONSOLIDATION ACCOUNTANT, PET HANDLER Unavailable Kami Meneses MD Unavailable [phone] Kami Meneses MD Unavailable [phone] Kami Meneses MD Unavailable [phone] Reason for Visit * Reason Comments Medication Refill Encounter Details Date Type Department Care Team (Late st Contact Info) Description 03/25/2021 Refill [facility] - Gastroenterology - [place] [address] [place] [address] Ingrid Mccloud Ashley, PAC [address] [place] [address] Medication Refill Social History Tobacco Use Types [...] 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 Not on file [...] documented as of this encounter Care Teams Supervisor Gluing Relationship Specialty Start Date End Date Fuentes Orellana MD [address] [place] [address] PCP - General Family Medicine 07/06/15 Brent Dickinson DO [address] [place] [address] Gastroenterology 06/27/16 Faviola Jiménez APRN, PET HANDLER [address] [facility] [place] [address] Nurse Practitioner Advanced Practice Nurse 07/22/16 Shawnee Mckinney MD [address] [facility] [address] [place] [address] Urologist Urology 06/07/19 Chicho Clayton MD [address] [facility] [address] [place] [address] Oncology 06/13/19 Lai Lambert APRN, PET HANDLER [address] [place] [address] Nurse Practitioner Advanced Practice Nurse 02/10/23 Kami Meneses MD [address] [address] Consulting Physician Urology 06/16/23 Anette Bond MD [address] [place] [address] Consulting Physician Gastroenterology 12/25/22 Kay Gordon APRN, PET HANDLER [address] [place] [address] Nurse Practitioner Advanced Practice Nurse 06/16/24 Kami Meneses MD [address], [facility] [address] [place] [address] Consulting Physician Urology 08/19/24 Kami Meneses MD #[address], [facility] [address] [place] [address] Consulting Physician Urology 01/06/25 Kami Meneses MD [address], [facility] [address] [place] [address] Consulting Physician Urology 03/08/25 documented as of this encounter
--- OUTSIDE RECORDS SUMMARY | 2025-07-25 21:42 | XMS_ITS | Clinical Summary ---
Author Organization [facility] [address] Address [address] [place] [address] Care Team Providers Care Supervisor [employer] Name Role Phone Fuentes Orellana MD Primary Care Provider Itz Iyer MD Unavailable [phone] Shawnee Mckinney MD Unavailable [phone] Chicho Clayton MD Unavailable Maria Guadalupe Palacios RN Unavailable Unava ilable Lupillo Davenport MD Unavailable [phone] Danis Meza SUPERVISOR [facility] Unavailable [phone] Antonette Owens NP Unavailable Aniceto Foley MD Unavailable [phone] Allergies Active Allergy Reactions Criticality Noted [...] Active Additional Information Patient not taking.Reported on 07/13/2025 amLODIPine (NORVASC) 5 mg tablet TAKE 1 [...] immediate release tabletIndicatio ns:Coronary artery disease involving chilkat coronary artery of chilkat heart without angina pectoris TAKE 1 TABLET(25 MG) BY MOUTH TWICE DAILY 90 tablet 3 5 Active Active Problems Problem Noted Date Diagnosed Date Retention of urine 07/17/2025 Cardiac disease 04/24/2025 Assessment & Plan (04/25/2025 [...] (10/21/2022): Added automatically from request for surgery [id number] Assessment & Plan (10/30/2022 2:56 PM ROOF SHINGLER): - OR 3/2 for planned R CEA - OU status, Q2h NV/VS monitoring - Bedrest today, OOB/PT POD #1 - SBP goal 100-160, nicardipine for elevated BP - Continue aspirin and statin - Plan to stager home medications and resume overnight Atherosclerosis of chilkat ar teries of extremities with intermittent claudication, bilateral legs 06/03/2022 Melanoma 01/10/2021 Anxiety 01/10/2021 DM (diabetes mellitus) 01/10/2021 Assessment & Plan (04/25/2025 6:06 AM CDT): NIDDM, on finerenon, amaryl, tradjenta. - Hold home PO diabetic meds while inpatient. Restart at discharge. - Diabetic diet, SSI Assessment & Plan (10/30/2022 9:59 AM ROOF SHINGLER): - A1c 7.6% 10/2022 - SSI while inpatient - CC diet when eating Elevated left ventricular end-diastolic pressure (LVEDP) 11/15/2019 Encounter for surgical after care following surgery of circulatory system 05/20/2019 Prostate cancer 09/10/2018 Assessment & Plan (10/27/2018 9:53 AM ROOF SHINGLER): Follows with urology, has his PSA monitored it is increasing, but still WNL 1.4 Assessment & Plan (09/22/2018 11:35 AM ROOF SHINGLER): Has close follow up with his oncologist. His PSA was slightly elevated on last check. Hyperlipidemia 09/21/2017 Assessment & Plan (06/30/2018 9:38 AM CDT): His last lipid panel was within acceptable range; he will continue on a high intensity statin. Assessment & Plan (09/21/2017 11:34 AM ROOF SHINGLER): Continue Lipitor 40 mg daily. Essential hypertension 07/20/2017 Assessment & Plan (10/30/2022 2:57 PM ROOF SHINGLER): - Tight BP goals post-procedure - Continue home medications as indicated by BP goals as above, staggering overnight for gentle BP control Assessment & Plan (10/27/2018 9:54 AM ROOF SHINGLER): Hypertension is unchanged. Dietary sodium restriction. Blood pressure will be reassessed in 4 weeks. Assessment & Plan (09/22/2018 11:38 AM ROOF SHINGLER): Hypertension remains elevated. He is increasing his [...] today Assessment & Plan (09/21/2017 11:33 AM ROOF SHINGLER): Blood pressure is well controlled today. Last visit we added HCTZ 12.5 mg daily. Continue current medications Assessment & Plan (08/10/2017 11:26 AM ROOF SHINGLER): Blood pressure is not controlled. Add hydrochlorothiazide 12.5 mg p.o. daily. He is compliant with medications but always add salt to food which I advised him not to do that. Assessment & Plan (07/20/2017 9:19 AM ROOF SHINGLER): Blood pressure remains uncontrolled. We will order renal Doppler ultrasound to rule out renal artery stenosis given the fact that he has peripheral vascular disease and coronary artery disease. I will increase amlodipine from 5-10 mg p.o. daily. If that does not control the blood pressure we will add hydrochlorothiazide 12.5 mg p.o. Daily. Coronary artery disease invo lving chilkat coronary artery of chilkat heart without angina pectoris 07/20/2017 Assessment & Plan (10/30/2022 9:58 AM ROOF SHINGLER): - Continue home medications as able - Maintained on Brilinta as an outpatient; held 1 week prior to OR - Will discuss with surgery team when to safely resume post-procedure Assessment & Plan (10/27/2018 9:59 AM ROOF SHINGLER): Coronary artery disease is improving with lifestyle modifications. Continue current treatment regimen. Cardiac status will be reassessed in 3 months. No chest pain. Minimal SOB. Continue asa, statin, brilinta Assessment & Plan (09/22/2018 11:36 AM ROOF SHINGLER): Coronary artery disease is unchanged. Regular aerobic [...] BB. Assessment & Plan (09/21/2017 11:33 AM ROOF SHINGLER): Continue aspirin, Brilinta, Toprol XL and atorvastatin. Assessment & Plan (08/10/2017 11:27 AM ROOF SHINGLER): Continue Brilinta and aspirin. Asymptomatic. Assessment & Plan (07/20/2017 9:19 AM ROOF SHINGLER): Continue aspirin, Brilinta, Lipitor , metoprolol PVD [...] plan. Assessment & Plan (10/27/2018 9:21 AM ROOF SHINGLER): S/P bilateral ALVA angioplasty; right EIA angioplasty/stent 11/21/14. S/P aortoiliac angioplasty/stent 05/28/09. Continues on asa, statin and brilinta Assessment & Plan (09/21/2017 11:34 AM ROOF SHINGLER): He follows up with vascular surgery at [facility] Assessment & Plan (08/10/2017 11:27 AM ROOF SHINGLER): Renal ultrasound suggest more than 60% stenosis in the right renal artery and infrarenal stenosis 50-70%. He follows up with Dr. Foley from vascular surgery at [facility] Assessment & Plan (07/20/2017 9:20 AM ROOF SHINGLER): Patient will follow up with Dr. Foley [...] 02/09/2019 Assessment & Plan (10/27/2018 10:17 AM ROOF SHINGLER): Persistent dizziness. Has stopped caffeine intake. Has [...] implant or graft 6 02/09/2019 Atherosclerosis of chilkat artery of extremity 04/15/20 16 02/09/2019 Assessment & Plan (09/22/2018 11:26 AM ROOF SHINGLER): 80% circumflex s/p RICHARD. Moderate 30 % LAD with bridging Impotence of organic origin 09/18/2015 02/09/2019 Urinary tract infection 01/18/201501/29 Incontinence 01/18/2015 02/09/2019 Stricture, urethra 07/31/2011 9 Overview (12/10/2017): Description: Dilation 06/09/11 Nocturia 11/28/2010 02/09/2019 Hypertension 05/16/2009 02/09/2019 Assessment & Plan (10/27/2018 10:11 AM ROOF SHINGLER): Hypertension is {improving/stable/worsenin}. {plan; hypertension for POC:[id number]} Blood pressure will be reassessed {plan; follow-up 2 weeks/4weeks/3months:[id number]}. Increase amolodipine to 10 mg Continue all [...] Encounters Date Type Department Care Team Description 07/25/2025 11:00 AM ROOF SHINGLER Office Visit [facility] [address] [place] [address] 5 [place] [address] Chicho Clayton MD Prostate cancer (HCC) (Primary Dx) 07/25/2025 10:15 AM ROOF SHINGLER Lab [facility] - Lab Collection [facility] Floor 5 [place] [address] Prostate cancer (HCC) 07/25/2025 10:00 AM ROOF SHINGLER Lab [facility] Lab [facility] Floor 5 [place] [address] Prostate cancer (HCC) 07/25/2025 Results Follow-Up [facility] Medical [facility] [address] [facility] [address] [place] [address] Sugar Jolly NP Transthoracic Echo (TTE) Complete W Doppler/CF 07/24/2025 11:15 AM ROOF SHINGLER Ancillary Procedure [facility] Medical [facility]iology [address] [address] [place] [address] Coronary artery disease involving chilkat coronary artery of chilkat heart without angina pectoris; JARA (dyspnea on exertion) 07/24/2025 9:15 AM ROOF SHINGLER Ancillary Procedure [facility] [address] [facility] [address] [place] [address] Coronary artery disease involving chilkat coronary artery of chilkat heart without angina pectoris; JARA (dyspnea on exertion) 07/17/2025 Orders Only [facility] [address] [place] [address] Kami Meneses MD Urinary retention (Primary Dx) 07/13/2025 1:00 PM ROOF SHINGLER Office Visit [facility] [address] [facility] [address], [place] [address] Sugar Jolly NP JARA (dyspnea on exertion) (Primary Dx); Coronary artery disease involving chilkat coronary artery of chilkat heart without angina pectoris; PAD (peripheral artery disease); Hypertension associated with diabetes (HCC); Hyperlipidemia associated with type 2 diabetes mellitus (HCC); Orthostatic hypotension 06/30/2025 10:46 AM CDT - 06/30/2025 11:59 PM CDT Hospital Encounter [facility] Medical Office Building [address] [address] Microscopic hematuria Discharge Disposition: Discharge to home or self care 06/23/2025 Community Orders [facility] EpicCare Link Kami Meneses MD Microscopic hematuria (Primary Dx); Pelvic pain 05/24/2025 11:45 AM CDT Office Visit [facility] 8th [place] [address] [place] [phone] Aniceto Foley MD Atherosclerosis of chilkat arteries of extremities with intermittent claudication, bilateral legs (Primary Dx) 05/24/2025 11:00 AM CDT Ancillary Procedure [facility] Lab at [facility] Advanced [address] 8th [place] [address] [place] [phone] Encounter for surgical aftercare following surgery on the circulatory system 05/24/2025 10:15 AM CDT Ancillary Procedure [facility] [address] [facility] 8th [place] [address] [place] [address] Atherosclerosis of chilkat arteries of extremities with intermittent claudication, right leg 05/18/2025 Orders Only [facility] Surgery [address] [facility] Medical Office Building 3 [address] [place] [address] Aniceto Foley MD Encounter for surgical aftercare following surgery on the circulatory system (Primary Dx) 05/12/2025 10:00 AM CDT Office Visit [facility] [address] [place] [address] Kay Ward NP Coronary artery disease of chilkat artery of chilkat heart with stable angina pectoris; Essential hypertension; LVH (left ventricular hypertrophy); PVD (peripheral vascular disease) 05/09/2025 Telephone [facility] [address] [place] [address] Kay Ward NP 04/24/2025 8:30 AM CDT - 04/24/2025 11:45 AM CDT Surgery [facility] Operating Room 1 [place] [address] Aniceto Foley MD ANGIOGRAM - HYBRID ROOM aorto iliac angiogram 04/24/2025 8:30 AM CDT Anesthesia Event [facility] Operating Room 1 [place] [address] Yuko Rodriguez MD Horton, Cheryl Renee Hill, NP 04/24/2025 6:23 AM CDT - 04/26/2025 11:35 AM CDT Hospital Encounter [address] [address] Aniceto Foley MD PAD (peripheral artery disease) Discharge Disposition: Discharge to home or self care from Last 3 Months Immunizations Immunization Administration Dates Next Due Adenovirus 05/03/2018 Influenza, Quad, Adjuvantated, Intramuscular Influenza, Quadrivalent, Kaia l Culture-based MDCK, Preservative Free, Antibiotic Free, Intramuscular 05/31/2019,06/15/2018 Influenza, Quadrivalent, Hig h Dose, Preservative Free, Intrr 06/25/2021 Influenza, Trivalent, High D ose, Split, Preservative Free, Intramuscular 06/06/2024 Influenza, Unspecified 05/31/2022,11/22/2014 Pfizer SARS-CoV-2 Monovalent Vaccination [...] INTRAOCULAR LENS IMPLANT Right ANGIO SELECTIVE CAROTID DIRECTOR COMPLIANCE RIGHT 10/15/2022 Right MELANOMA RESECTION 12/17/2014 Right [...] iliac angiogram; Surgeon: Aniceto Foley MD; Location: [facility] OR POD 3; Service: Vascular; Laterality: Bilateral; Medical devices from this surgery are in the Medical Devices section. CARDIAC CATHETERIZATION 04/24/2025 N/A Procedure: Percutaneous Lithotripsy Shockwave; Surgeon: Aniceto Foley MD; Location: [facility] OR POD 3; Service: Vascular; Laterality: N/A; [...] drink = 0.6 oz pur e alcohol) [facility] Utilities Answer Date Recorded In the past 12 months has [employer], gas, oil, or water [employer] threatened to shut off services in [...] How often do you attend chur or jewish services? More than 4 times per year 11/11/2024 Do you belong to any clubs o r organizations such as evangelical groups, unions, fraternal or athletic groups, or [...] any time in the past 12 m [facility], were you homeless or living in a senior living (including now)? No 11/11/2024 AUDIT-C Answer Date [...] on file Legal Sex Male 12:32 AM ROOF SHINGLER Gender Identity Not on file Sexual Orientation Choose not to disclose 2018 8:58 AM CDT Occupation Industry Job 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 Date retired Not on file Not on file Not on file Last Filed Vital Signs Vital Sign Reading Time Taken Comments Blood Pressure 139/62 07/25/2025 10:26 AM ROOF SHINGLER Pulse 71 07/25/2025 10:26 AM ROOF SHINGLER Temperature 36.8 C (98.3 F) 07/25/2025 10:26 AM ROOF SHINGLER Respiratory Rate 18 07/25/2025 10:26 AM ROOF SHINGLER Oxygen Saturation 99% 07/25/2025 10:26 AM ROOF SHINGLER Inhaled Oxygen Concentration - - Weight 82.8 kg (182 lb 9.6 oz) 07/25/2025 10:26 AM ROOF SHINGLER Height 167.6 cm (5' 5.98) 07/25/2025 10:26 AM C Body Mass Index 29.49 07/25/2025 10:26 AM ROOF SHINGLER Plan of Treatment Upcoming Encounters Date Type Department Care Team (Latest Contact Info) Description 08/30/2025 7:30 AM ROOF SHINGLER Hospital Encounter [facility] Operating Room [address] [place] [phone] [place] [address] [place] [phone] 08/30/2025 7:30 AM ROOF SHINGLER - 08/30/2025 10:30 AM ROOF SHINGLER Surgery [facility] Operating Room [address] [place] [phone] [place] [address] [place] [address] Revision Artificial Urinary Sphincter Scheduled Procedures Name Priority Associated Diagnoses Date/Ti me REVISION ARTIFICIAL URINARY SPHINCTER Retention of urine 08/30/2025 7:30 AM ROOF SHINGLER Health Maintenance Due Date Last Done Comments [...] 05/31/2022, 06/25/2021, Additional history exists Hemoglobin A1C 01/22/2026 07/25/2025, 02/28, 09/22/2023, Additional history exists Lipid Panel 04/24/2026 04/24/2025, 03/01, 02/25/2024, Additional history exists Fall Risk Assessment 04/26/2026 04/26/2025 eGFR 07/25/2026 07/25/2025, 04/01, 04/24/2025, Additional history exists DTaP/Tdap/Td Vaccine (2 - Td or Tdap) 10/07/2030 10/07/2020 Pneumococcal vaccine 65+ Completed 11/22/2014, 10/30 Abdominal Aortic Aneurysm (A AA) Screen Completed 06/30/2025, 03/08/2025, 12/15/2023, Additional history exists Medical Devices Implanted Type Area Furnace And Wash Equipment Operator Device Identifier Shelf Expiration Date Model / Serial / Lot Other - See Comments-05/17/20 15 Implanted:2014 (Quantity not on file) Other - see comments Bladder Description:Bladder control Stent Stent Bilateral: Groin Description:Per pt 4-5 stent s Stent Stent N/A: Heart [employer] Sandra Express Ld Tandem Architecture 8mm 17mm 135cm [place] [id number] - [id number] Implanted:Qty: 1 on 04/24/2025 by Aniceto Foley MD at [facility] Stent N/A: Infrarenal Aorta [employer] Sandra [id number] 10/12/2026 [id number] / / [id number] [employer] Stent Graft Endoprosthesis Reduced Profile Straight Heparin Coated Viabahn [id number] - [id number] - [id number] Implanted:Qty: 1 on 04/24/2025 by Aniceto Foley MD at [facility] Stent N/A: Infrarenal Aorta Wl [employer] [id number] 08/05/2027 [id number] / [id number] / Wl [employer] Stent Graft Endoprosthesis Reduced Profile Straight Heparin Coated Viabahn [id number] - [id number] - [id number] Implanted:Qty: 1 on 04/24/2025 by Aniceto Foley MD at [facility] Stent Right: Iliac Wl [employer] [id number] 10/02/2027 [id number] / [id number] / Wl [employer] Stent Graft Endoprosthesis Reduced Profile Straight Heparin Coated Vi[employer]ahn [id number] - [id number] - [id number] Implanted:Qty: 1 on 04/24/2025 by Aniceto Foley MD at [facility] Stent Left: Iliac Wl [employer] [id number] 07/31/2027 [id number] / [id number] / Wl [employer] Stent Graft Endoprosthesis Reduced Profile Straight Heparin Coated Viabahn [id number] - [id number] - [id number] Implanted:Qty: 1 on 04/24/2025 by Aniceto Foley MD at [facility] Stent Right: External Iliac Artery Wl [employer] [id number] 09/21/2027 [id number] / [id number] / Wl [employer] Stent Graft Endoprosthesis Reduced Profile Straight Heparin Coated Viabahn [id number] - [id number] - [id number] Implanted:Qty: 1 on 04/24/2025 by Aniceto Foley MD at [facility] Stent Right: Iliac Wl [employer] [id number] 11/07/2027 [id number] / [id number] / [employer] Device Vascular Closure Femoral Artery Bioabsorbable Dual Method Vascade 6-7fr Collagen [id number] - [id number] Implanted:Qty: 1 on 04/24/2025 by Arturo Hopkins MD at [facility] Vascular Closure Device Right: Groin [employer] [id number] 01/16/2027 [id number]- [id number] / / [id number] [employer] Device Vascular Closure Femoral Artery Bioabsorbable Dual Method Vascade 6-7fr Collagen [id number] - [id number] Implanted:Qty: 1 on 04/24/2025 by Arturo Hopkins MD at [facility] Vascular Closure Device Left: Groin [employer] [id number] 01/16/2027 [id number]- 05U / / Stent Right: Eye Artificail Urinary Sphincter-05/08/20 15 Implanted:2014 by Shawnee Mckinney MD (Quantity not on file) N/A: Urethra Description:05/08/2019 Placeme nt of artificial urinary sphincter with a 3.5 cm cuff and 61 to 70 cm pressure-regulating balloon. [facility] Sandra Vascu-Guard 8x.8cm Peripheral Patch Vascular Bovine Pericardium Vg-[id number] - [id number] Implanted:Qty: 1 on 10/30/2022 by Aniceto Foley MD at [facility] Right: Carotid [facility] Sandra [id number] 07/09/2023 [id number]-[id number] / / [id number] [employer] Sandra Ams 800 Kit Accessory Sterile Disposable Latex Free Urinary [id number] - [id number] Implanted:Qty: 1 on 11/09/2024 by Kami Meneses MD at [facility] N/A: Urethra [employer] Sandra [id number] 03/09/2029 [id number] / / [id number] [employer] Sandra Cuff Urethral Ams 800 Inhibizone 3.5cm [id number] - [id number] Implanted:Qty: 1 on 11/09/2024 by Kami Meneses MD at [facility] N/A: Urethra [employer] Sandra [id number] 02/22/2026 [id number] / / [id number] [employer] Ams 800 Pressure Balloon Sphincter 61-70cu Cm Implant Urological [id number] - [id number] Implanted:Qty: 1 on 11/09/2024 by Kami Meneses MD at [facility] N/A: Abdomen [employer] Sandra [id number] 03/20/2029 [id number] / / [id number] [employer] Ams 800 Control Pump Sphincter Implant Urological Inhibizone [id number] - [id number] Implanted:Qty: 1 on 11/09/2024 by Kami Meneses MD at [facility] N/A: Scrotum [employer] [id number] 02/15/2026 [id number] / / [id number] Procedures Procedure Name Priority Date/Time Associated Diagnosis Comments EGFR Routine 07/25/2025 10:13 AM ROOF SHINGLER Prostate cancer (HCC) DIFFERENTIAL AUTO Routine 07/25/2025 10: 13 AM ROOF SHINGLER Prostate cancer (HCC) HEMOGLOBIN A1C Routine 07/25/2025 10:13 AM ROOF SHINGLER Prostate cancer (HCC) COMPREHENSIVE METABOLIC PANEL Routine 07/25/2025 10:13 AM ROOF SHINGLER Prostate cancer (HCC) CBC WITH AUTO DIFFERENTIAL Routine 07/25/2025 10:13 AM ROOF SHINGLER Prostate cancer (HCC) PSA DIAGNOSTIC Routine 07/25/2025 10:13 AM ROOF SHINGLER Prostate cancer (HCC) LACTATE DEHYDROGENASE Routine 07/25/2025 10:13 AM ROOF SHINGLER Prostate cancer (HCC) NM MPI SPECT (REST AND/OR STRESS) MULTIPLE STUDIES Schedule Routine, Read Routine (OP Routine) 07/24/2025 11:27 AM ROOF SHINGLER Coronary artery disease involving chilkat coronary artery of chilkat heart without angina pectoris JARA (dyspnea on exertion) TRANSTHORACIC ECHO (TTE) COMPLETE W DOPPLER/CF W CONTRAST Routine 07/24/2025 10:14 AM ROOF SHINGLER Coronary artery disease involving chilkat coronary artery of chilkat heart without angina pectoris JARA (dyspnea on exertion) CT ABDOMEN PELVIS W WO CONTRAST Schedule [...] Routine) 05/24/2025 10:37 AM CDT Atherosclerosis of chilkat arteries of extremities with intermittent claudication, right leg US ARTERIAL DOPPLER LOWER EXTREMITY BILATERAL Schedule Routine, Read Routine (OP Routine) 05/24/2025 10:37 AM CDT Atherosclerosis of chilkat arteries of extremities with intermittent claudication, right leg ECG 12-LEAD Routine 05/12/2025 12:03 PM CDT LVH (left ventricular hypertrophy) POCT GLUCOSE DEVICE Routine 04/26/2025 8 :01 AM CDT POCT GLUCOSE DEVICE Routine 04/25/2025 8:32 PM CDT POCT GLUCOSE DEVICE Routine 04/25/2025 [...] disease) PERCUTANEOUS CORONARY LITHROTRIPSY W/ PCI (+) 03309 Routine 04/24/2025 11:50 AM CDT PAD (peripheral [...] CHEMISTRIES, ARTERIAL Routine 04/24/2025 9:41 AM CDT KS AN PROCEDURE PLACEHOLDER Routine 04/24/2025 9:20 AM CDT KS AN PROCEDURE PLACEHOLDER Routine 04/24/2025 9:19 AM CDT KS AN PROCEDURE PLACEHOLDER Routine 04/24/2025 9:18 AM CDT KS AN PROCEDURE PLACEHOLDER Routine 04/24/2025 8:50 AM CDT KS AN ELECTIVE ENDOTRACHEAL AIRWAY Routine 04/24/2025 8:50 AM CDT POCT GLUCOSE DEVICE Routine 04/24/2025 7 :26 AM CDT TYPE AND SCREEN STAT 04/24/2025 7:18 AM CDT PREPARE RBC Timed 04/24/2025 6:46 AM CDT from Last 3 Months Results * (ABNORMAL) eGFR (07/25/2025 10:13 AM ROOF SHINGLER) [facility] eGFR 49(L) >=60 mL/min/1. 73 m2 Comment: [...] reviewed 2021. Blood 07/25/2025 10:1 3 AM ROOF SHINGLER 07/25/2025 10:18 AM ROOF SHINGLER us Chicho Clayton MD LAB BLOOD ORDERABLES Final Resul t DARIN BRYSON [facility] Department [place] [address] * Differential, auto (07/25/2025 10:13 AM ROOF SHINGLER) Neutrophil abs 4.34 1.50 - 6.50 K/cumm Comment:Testing performed by : [facility], [address] [place] [phone] Lymphocyte abs 1.21 0.80 - 3.30 K/cumm DARIN BRYSON Comment:Testing performed by : [facility], [address] [place] [phone] Monocyte abs 0.36 0.20 - 0.80 K/cumm DARIN BRYSON Comment:Testing performed by : [facility], [address] [place] [phone] Eosinophil abs 0.17 0.00 - 0.50 K/cumm DARIN BRYSON Comment:Testing performed by : [facility], [address] [place] [phone] Basophil abs 0.07 0.00 - 0.10 K/cumm DARIN [facility] Comment:Testing performed by : [facility], [address] [place] [phone] Neutrophil pct 70.7 % DARIN BRYSON Comment: Interpretive Data Percent cell count reference ranges are not reported, since discordance with absolute values may lead to misinterpretation of CBC data. Current Interpretive Data was last revised on 2017. Testing performed by: [facility], [address] [place] [phone] Lymphocyte pct 19.6 % CERNAFISA BRYSON Comment: Interpretive Data Percent cell count reference ranges are not reported, since discordance with absolute values may lead to misinterpretation of CBC data. Current Interpretive Data was last revised on 2017. Testing performed by: [facility], [address] [place] [phone] Monocyte pct 5.8 % DARIN BRYSON Comment: Interpretive Data Percent cell count reference ranges are not reported, since discordance with absolute values may lead to misinterpretation of CBC data. Current Interpretive Data was last revised on 2017. Testing performed by: [facility], [address] [place] [phone] Eosinophil pct 2.8 % DARIN BRYSON Comment: Interpretive Data Percent cell count reference ranges are not reported, since discordance with absolute values may lead to misinterpretation of CBC data. Current Interpretive Data was last revised on 2017. Testing performed by: [facility], [address] [place] [phone] Basophil pct 1.1 % CERNAFISA BRYSON Comment: Interpretive Data Percent cell count reference ranges are not reported, since discordance with absolute values may lead to misinterpretation of CBC data. Current Interpretive Data was last revised on 2017. Testing performed by: [facility], [address] [place] [phone] Blood 07/25/2025 10:1 3 AM ROOF SHINGLER 07/25/2025 10:18 AM ROOF SHINGLER us Chicho Clayton MD LAB BLOOD ORDERABLES Final Resul t DARIN BRYSON [facility] Department [place] [address] * (ABNORMAL) CBC with auto differential (07/25/2025 10:13 AM ROOF SHINGLER) WBC 6.15 3.80 - 9.90 K/cumm Comment:Testing performed by : [facility], [address] [place], [place] [phone] Hgb 11.0(L) 13.0 - 17.5 g/dL CERNER BJ Comment:Testing performed by : [facility], [address] [place], [place] [phone] Hct 33.3(L) 38.9 - 50.3 % CERNER BJ Comment:Testing performed by : [facility], [address] [place], [place] [phone] Plt 162 150 - 400 K/cumm CERNER BJ Comment:Testing performed by : [facility], [address] [place], [place] [phone] MPV 8.9 6.8 - 10.4 fL CERNER BJ Comment:Testing performed by : [facility], [address] [place], [place] [phone] RBC 3.59(L) 4.30 - 5.80 M/cumm CERNER BJ Comment:Testing performed by : [facility], [address] [place] [address] MCV 92.9 81.3 - 96.4 fL CERNER BJ Comment:Testing performed by : [facility], [address] [place] [address] MCH 30.7 27.1 - 33.3 pg CERNER BJ Comment:Testing performed by : [facility], [address] [place] [address] MCHC 33.0 32.3 - 35.7 g/dL CERNER BJ Comment:Testing performed by : [facility], [address] [place] [address] RDW CV 15.1(H) 11.1 - 14.9 % CERNER BJ Comment:Testing performed by : [facility], [address] [place] [address] NRBC abs 0.00 0.00 - 0.01 K/cumm CERNER BJ Comment:Testing performed by : [facility], [address] [place] [phone] Blood 07/25/2025 10:1 3 AM ROOF SHINGLER 07/25/2025 10:18 AM ROOF SHINGLER us Chicho Clayton MD LAB BLOOD ORDERABLES Final Resul t Performing Organization Address [facility] de Phone Number [facility] Department [place] [address] * PSA diagnostic (07/25/2025 10:13 AM ROOF SHINGLER) PSA-Total 4.87 <=6.20 ng/mL Comment: Interpretive Data [...] revised 22. Blood 07/25/2025 10:1 3 AM ROOF SHINGLER 07/25/2025 10:18 AM ROOF SHINGLER us Chicho Clayton MD LAB BLOOD ORDERABLES Final Resul t Performing Organization Address [facility] de Phone Number [facility] Department [place] [address] * Lactate dehydrogenase (LD) (07/25/2025 10:13 AM ROOF SHINGLER) Lactate dehydrogenase (LDH) 122 100 - 250 Units/L Blood 07/25/2025 10:1 3 AM ROOF SHINGLER 07/25/2025 10:18 AM ROOF SHINGLER us Chicho Clayton MD LAB BLOOD ORDERABLES Final Resul t Performing Organization Address [facility]/ZIP Co de Phone Number [facility] Department [place] [address] * (ABNORMAL) Hemoglobin A1c (07/25/2025 10:13 AM ROOF SHINGLER) [facility] Hgb A1C 7.1(H) 4.0 - 5.6 % Estimated Average Glucose 157 mg/dL [facility] Comment: The ADA recommends reporting an estimated Average Glucose (eAG) with all Hemoglobin A1c results using the equation derived from a study of 507 normal and diabetic adults. Minority populations were underrepresented and children were not included. (Diabetes Care 2020; 43(S1): S66-S76). The eAG is not equivalent to a fasting glucose. Blood 07/25/2025 10:1 3 AM ROOF SHINGLER 07/25/2025 10:22 AM ROOF SHINGLER Chicho Clayton MD LAB BLOOD ORDERABLES Final Resul t [facility] Department [place] [address] * (ABNORMAL) Comprehensive metabolic panel (07/25/2025 10:13 AM ROOF SHINGLER) [facility] Sodium 140 135 - 145 mmol/L Potassium, pl 4.4 3.3 - 4.9 mmol/L [facility] Chloride 107 97 - 110 mmol/L [facility] CO2 28 22 - 32 mmol/L [facility] Anion gap 5 2 - 15 mmol/L [facility] BUN 32(H) 6 - 25 mg/dL [facility] Creatinine 1.49(H) 0.80 - 1.30 mg/dL [facility] Glucose 237(H) 70 - 199 mg/dL [facility] Comment: Interpretive Data Fasting glucose >/= [...] 2022. Calcium 11.0(H) 8.5 - 10.3 mg/dL [facility] Bilirubin, total 0.2 0.1 - 1.2 mg/dL [facility] Protein, pl 6.8 6.5 - 8.5 g/dL [facility]ERNER [facility] Albumin 3.6 3.5 - 5.0 g/dL [facility] Alk phos 88 40 - 130 Units/L [facility] ALT 21 7 - 55 Units/L [facility] AST 19 10 - 50 Units/L [facility] Blood 07/25/2025 10:1 3 AM ROOF SHINGLER 07/25/2025 10:18 AM ROOF SHINGLER us Chicho Clayton MD LAB BLOOD ORDERABLES Final Resul t [facility] Department [place] [address] * NM MPI SPECT (Rest and/or Stress) Multiple Studies (07/24/2025 11:27 AM ROOF SHINGLER) Anatomical Region Laterality Modality Body N/A Nuclear Medicine 07/24/2025 8:57 AM ROOF SHINGLER Narrative 07/24/2025 6:27 PM ROOF SHINGLER [facility] Medical Group Cardiology [address], [place] [address] [address] [facility] [address], [place] [address] [address], [place] [address] P:[phone] P:[phone] MPI Imaging Report Patient Name: RIVERA FREEMAN E : 1950 Study Date: 07/24/2025 8:57:52 AM Sex: M Tech: ANIA [facility] Location: [facility] Ref Provider: SUGAR JOLLY Height(Cm): 167.6 BSA: Weight(Kg): 83.5 BMI: 29.73 Order Provider: SUGAR JOLLY PHYSICIAN: Primary Care Physician: Dr. Orellana. Stress Supervision: Ishan Rodriguez M.D.,Bonnie Stress Interpreting Physician: Ishan Rodriguez M.D.,Bonnie PROCEDURES: Pharmacologic SPECT Report: Myocardial perfusion imaging with Tc99M Sestamibi SPECT at rest and stress post regadenoson (Lexiscan) infusion. 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 Electronically Signed By: Ishan Rodriguez MD, [facility] 07/24/2025 5:25:18 PM ROOF SHINGLER Electronically Signed By: Ishan Rodriguez MD, [facility] 07/24/2025 5:25:18 PM ROOF SHINGLER Procedure Note Ishan Rodriguez MD - 07/24/2025 [facility] Medical Group Cardiology [address], [place] [address] [address] [facility] [address], [place] [address], [place] [address] P:[phone] P:[phone] MPI Imaging Report Patient Name: RIVERA FREEMAN E : 1950 Study Date: 07/24/2025 8:57:52 AM Sex: M [facility] Provider: SUGAR JOLLY Height(Cm): 167.6 BSA: [...] Cholesterol,Former Smoker, I25.10 Atherosclerotic heart disease of chilkat coronary artery withoutangina pectoris, and R06.09 Other [...] calculated. Electronically Signed By: Ishan Rodriguez MD, [facility] 07/24/2025 5:25:18 PM ROOF SHINGLER Electronically Signed By: Ishan Rodriguez MD, [facility] 07/24/2025 5:25:18 PM ROOF SHINGLER Sugar Jolly SUPERVISOR CYTOGENETIC LABORATORY IMG NM PROCEDURES Delia l Result * TRANSTHORACIC ECHO (TTE) COMPLETE W DOPPLER/CF W CONTRAST (07/24/2025 10:14 AM ROOF SHINGLER) Estimated EF 75 % CONS SCIMAGE EF Mod BP 76 % CONS SCIMAGE Anatomical Region Laterality Modality Ultrasound 07/24/2025 9:26 AM ROOF SHINGLER Narrative 07/24/2025 4:40 PM ROOF SHINGLER [facility] Medical Group Cardiology [address], [place] [address] [address], [place] [address] P:[phone] P:[phone] Echocardiographic Report Patient Name: RIVERA FREEMAN E : 1950 Study Date: 07/24/2025 9:26:41 AM Sex: M Finishing Supervisor: Urmila Barrientos)(BER[place]), [facility] Location: [facility] Provider: SUGAR JOLLY Height(Cm): 168 BSA: 1.97 Weight(Kg): 83.5 Heart Rate: 102 BP: 122 / 56 Quality: Good Order Provider: SUGAR JOLLY PROCEDURES: Echocardiographic Report: Transthoracic echocardiogram with complete 2D, M-Mode, color Doppler examination and Definity contrast. With Strain Analysis. 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 Left Ventricle: Normal left ventricular size. Definity [...] valve. Electronically Signed By: Ishan Rodriguez MD, [facility] 07/24/2025 4:39:52 PM ROOF SHINGLER Procedure Note Ishan Rodriguez MD - 07/24/2025 [facility] Medical Group Cardiology [address] [facility] [place] [address], [place] [address] [address] [facility] [address], [place] [address] P:[phone] P:[phone] Echocardiographic Report Patient Name: RIVERA FREEMAN E : 1950 Study Date: 07/24/2025 9:26:41 AM Sex: M Finishing Supervisor: Urmila Barrientos)(CT), [facility] Location: [facility] Provider: SUGAR JOLLY Height(Cm): 168 BSA: 1.97 Weight(Kg): 83.5 Heart Rate: 102 BP: 122 / 56 Quality: Good Order Provider: SUGAR JOLLY PROCEDURES: Echocardiographic Report: Transthoracic echocardiogram with complete 2D, M-Mode, color Dopplerexamination and Definity contrast. With Strain Analysis. INDICATIONS: I25.10 Atherosclerotic heart disease of chilkat coronary artery withoutangina pectoris and R06.09 Other [...] FINDINGS: Interpretation Site: Exam was interpreted at [facility]. Left Ventricle: Normal left ventricular size. Definity [...] valve. Electronically Signed By: Ishan Rodriguez MD, [facility] 07/24/2025 4:39:52 PM ROOF SHINGLER Sugar Jolly NP CV ECHO PROCEDURES Fin al Result * CT ABDOMEN PELVIS W WO CONTRAST [...] - 1.30 mg/dL Comment:Testing performed by : [facility], [address] [place] [address]., [address] Blood 06/30/2025 11:0 0 AM CDT 06/30/2025 11:00 AM CDT Kami Gleason MD POINT OF CARE TEST ORDERABLES Final Result DARIN [address] [facility] Department [place] [address] * US Duplex Scan of Aorta; Inferior Vena Cava, Iliac, Limited or Unilateral (05/24/2025 10:38 AM CDT) Anatomical Region Laterality Modality Vascular Ultrasound 05/24/2025 10:0 6 AM CDT Narrative 05/24/2025 11:40 AM CDT [employer] [facility] [employer] [facility] - Department of Vascular Surgery, Vascular Laboratory [address] [place] [address] Abdominal Aortic Duplex Ultrasound Report Patient Name: RIVERA FREEMAN : 1950 Study Date: 05/24/2025 10:06:21 AM Sex: M Tech: TT [facility] Ref Provider: ANICETO FOLEY Quality: Adequate Order [...] Value Units Arteries Value Units FINDINGS: Performing Finishing Supervisor: Jay Hutson RVT. Study Quality: Limited. Abdominal [...] Procedure Note Thomas Gupta MD - 05/24/2025 [facility] - Department of Vascular Surgery,Vascular Laboratory [address] [place] [address] Abdominal Aortic Duplex Ultrasound Report Patient Name: RIVERA FREEMAN : 1950 Study Date: 05/24/2025 10:06:21 AM Sex: M Tech: TT Location: [facility] Provider: ANICETO FOLEY Quality: Adequate Order [...] Value Units Arteries Value Units FINDINGS: Performing Finishing Supervisor: Jay Hutson RVT. Study Quality: Limited. Abdominal [...] above. Electronically Signed By: Thomas Gupta MD [facility] 05/24/2025 11:09:44 AM CDT us Aniceto Foley MD IMG US PROCEDURES Final Resul t * US Arterial Duplex Lower Extremity Right Limited (05/24/2025 10:37 AM CDT) Anatomical Region Laterality Modality Vascular Right Ultrasound 05/24/2025 9:42 AM CDT Narrative 05/24/2025 11:40 AM CDT [facility] - Department of Vascular Surgery, Vascular Laboratory [address] [place] [address] [place] Lower Extremity Arterial Duplex Report Patient Name: RIVERA FREEMAN : 1950 Study Date: 05/24/2025 9:42:26 AM Sex: M Tech: TT [facility] Ref Provider: ANICETO FOLEY Quality: Adequate Order Provider: ANICETO FOLEY PROCEDURES: Arterial Report: Right Lower Extremity Arterial Duplex Exam. 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 MEASUREMENTS: Right Value Units Rt ENVIRONMENTAL COMMUNICATIONS SPECIALIST Dst PSV 180 cm/s Rt Profunda Prx PSV 184 cm/s Rt Superficial Femoral Prx PSV 189 cm/s Rt Superficial Femoral Mid PSV 79 cm/s Rt Superficial Femoral Dst PSV 94 cm/s Rt Pop Prx PSV 60 cm/s Rt Post Tibial Mid PSV 34 cm/s Rt Ant Tibial Mid PSV 55 cm/s Rt Peroneal Mid PSV 56 cm/s Right Value Units FINDINGS: Performing Finishing Supervisor: Jay Hutson RVT. Right Common Femoral: The [...] Duplex imaging of the right lower extremity chilkat arteries reveals patent vessels with no flow [...] Procedure Note Thomas Gupta MD - 05/24/2025 [facility] - Department of Vascular Surgery,Vascular Laboratory [address] [place] [address] [place] Lower Extremity Arterial Duplex Report Patient Name: RIVERA FREEMAN : 1950 Study Date: 05/24/2025 9:42:26 AM Sex: M Tech: TT Location: [facility] Provider: ANICETO FOLEY Quality: Adequate Order Provider: ANICETO FOLEY PROCEDURES: Arterial Report: Right Lower Extremity Arterial Duplex Exam. INDICATIONS: I70.211 Atherosclerosis of chilkat arteries of extremities withintermittent claudication, right leg. MEASUREMENTS: Right Value Units Rt ENVIRONMENTAL COMMUNICATIONS SPECIALIST Dst PSV 180 cm/s Rt Profunda Prx PSV 184 cm/s Rt Superficial Femoral Prx PSV 189 cm/s Rt Superficial Femoral Mid PSV 79 cm/s Rt Superficial Femoral Dst PSV 94 cm/s Rt Pop Prx PSV 60 cm/s Rt Post Tibial Mid PSV 34 cm/s Rt Ant Tibial Mid PSV 55 cm/s Rt Peroneal Mid PSV 56 cm/s Right Value Units FINDINGS: Performing Finishing Supervisor: Jay Hutson RVT. Right Common Femoral: The [...] Duplex imaging of the right lower extremity chilkat arteries revealspatent vessels with no flow limiting [...] above. Electronically Signed By: Thomas Gupta MD [facility] 05/24/2025 11:08:37 AM CDT us Aniceto Foley MD IMG US PROCEDURES Final Resul t * US Arterial Doppler Lower Extremity Bilateral (05/24/2025 10:37 AM CDT) Anatomical Region Laterality Modality Vascular Bilateral Ultrasound 05/24/2025 9:45 AM CDT Narrative 05/24/2025 11:40 AM CDT [facility] - Department of Vascular Surgery, Vascular Laboratory [address] [place] [address] Lower Extremity Arterial Doppler Report Patient Name: RIVERA FREEMAN : 1950 Study Date: 05/24/2025 9:45:00 AM Sex: M Tech: Jay Hutson RVT Location: [facility] Provider: ANICETO FOLEY Quality: Adequate Order Provider: ANICETO FOLEY PROCEDURES: Arterial Report: Bilateral lower extremity arterial Doppler exam at rest. 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 MEASUREMENTS: Right Value Units Left Value Units Rt Brachial Pressure 150 mmHg Lt Brachial Pressure 151 mmHg Rt SIGNALS INTELLIGENCE SUPERINTENDENT Pressure 141 mmHg Lt SIGNALS INTELLIGENCE SUPERINTENDENT Pressure 141 mmHg Rt DPA Pressure 139 mmHg Lt DPA Pressure 114 mmHg Rt 1st Digit Pressure 91 mmHg Lt 1st Digit Pressure 105 mmHg Rt PT TORREY Resting 0.93 Lt PT TORREY Resting 0.93 Rt AT TORREY Resting 0.92 Lt AT TORREY Resting 0.75 Rt Digit/Arm Index 0.6 Lt Digit/Arm Index 0.7 Right Value Units Left Value Units FINDINGS: Performing Finishing Supervisor: Jay Hutson RVT. Right All Levels: The [...] Procedure Note Thomas Gupta MD - 05/24/2025 [facility] - Department of Vascular Surgery,Vascular Laboratory [address] [place] [address] Lower Extremity Arterial Doppler Report Patient Name: RIVERA FREEMAN : 1950 Study Date: 05/24/2025 9:45:00 AM Sex: M Tech: Jay Hutson RVT Location: [facility] Provider: ANICETO FOLEY Quality: Adequate Order Provider: ANICETO FOLEY PROCEDURES: Arterial Report: Bilateral lower extremity arterial Doppler exam at rest. INDICATIONS: I70.211 Atherosclerosis of chilkat arteries of extremities withintermittent claudication, right leg. MEASUREMENTS: Right Value Units Left Value Units Rt Brachial Pressure 150 mmHg Lt Brachial Pressure 151 mmHg Rt SIGNALS INTELLIGENCE SUPERINTENDENT Pressure 141 mmHg Lt SIGNALS INTELLIGENCE SUPERINTENDENT Pressure 141 mmHg Rt DPA Pressure 139 mmHg Lt DPA Pressure 114 mmHg Rt 1st Digit Pressure 91 mmHg Lt 1st Digit Pressure 105 mmHg Rt PT TORREY Resting 0.93 Lt PT TORREY Resting 0.93 Rt AT TORREY Resting 0.92 Lt AT TORREY Resting 0.75 Rt Digit/Arm Index 0.6 Lt Digit/Arm Index 0.7 Right Value Units Left Value Units FINDINGS: Performing Finishing Supervisor: Jay Hutson RVT. Right All Levels: The [...] above. Electronically Signed By: Thomas Gupta MD [facility] 05/24/2025 11:11:06 AM CDT us Aniceto Foley MD IMG US PROCEDURES Final Resul t * ECG 12 lead (05/12/2025 12:03 PM CDT) Kay Ward SUPERVISOR CYTOGENETIC LABORATORY ECG ORDERABLES Final Res ult * POCT glucose (04/26/2025 8:01 AM CDT) [facility] Signature Glucose, POC 151 70 - 199 mg/dL Blood 04/26/2025 8:01 AM CDT 04/26/2025 8:01 AM CDT us Aniceto Foley MD LAB POCT ORDERABLES - DEVICE Final Result DARIN [facility] Department [place] [address] * POCT glucose (04/25/2025 8:32 PM CDT) Glucose, POC 197 70 - 199 mg/dL Blood 04/25/2025 8:32 PM CDT 04/25/2025 8:32 PM CDT us Aniceto Foley MD LAB POCT ORDERABLES - DEVICE Final Result Performing Organization Address [facility] Co de Phone Number [facility] [place] [address] * POCT glucose (04/25/2025 5:11 PM CDT) Glucose, POC 160 70 - 199 mg/dL Comment:Glu2: RN/ Notified Glucose comment 1 Glu2: RN/MD Notified [facility] Blood 04/25/2025 5:11 PM CDT 04/25/2025 5:11 PM CDT us Aniceto Foley MD LAB POCT ORDERABLES - DEVICE Final Result Performing Organization Address [facility] Co de Phone Number [place], [place] [id number] * POCT glucose (04/25/2025 11:30 AM CDT) Glucose, POC 174 70 - 199 mg/dL Comment:Glu2: RN/ Notified Glucose comment 1 Glu2: RN/MD Notified [facility] Blood 04/25/2025 11:3 0 AM CDT 04/25/2025 11:30 AM CDT us Aniceto Foley MD LAB POCT ORDERABLES - DEVICE Final Result Performing Organization Address [facility] Co de Phone Number [facility] [place] [address] * POCT glucose (04/25/2025 7:30 AM CDT) Glucose, POC 121 70 - 199 mg/dL Comment:Glu2: RN/MD Notified Glucose comment 1 Glu2: RN/ Notified [facility] Blood 04/25/2025 7:30 AM CDT 04/25/2025 7:30 AM CDT us Aniceto Foley MD LAB POCT ORDERABLES - DEVICE Final Result Performing Organization Address [facility] Co de Phone Number [facility] Department [place] [address] * (ABNORMAL) eGFR (04/25/2025 1:25 AM CDT) [facility] eGFR 54(L) >=60 mL/min/1. 73 [...] ORDERABLES Final Re sult Performing Organization Address [facility]/ZIP Co de Phone Number [facility] Department [place] [address] * (ABNORMAL) CBC without differential (04/25/2025 1:25 AM CDT) [facility] WBC 7.83 3.80 - 9.90 K/cumm Hgb 9.7(L) 13.0 - 17.5 g/dL [facility] Hct 29.1(L) 38.9 - 50.3 % [facility] Plt 151 150 - 400 K/cumm [facility] MPV 11.1 9.1 - 12.3 fL [facility] RBC 3.13(L) 4.30 - 5.80 M/cumm [facility] MCV 93.0 81.3 - 96.4 fL [facility] MCH 31.0 27.1 - 33.3 pg [facility] MCHC 33.3 32.3 - 35.7 g/dL [facility] RDW CV 15.3(H) 11.1 - 14.9 % [facility] RDW SD 51.3(H) 35.7 - 48.1 fL [facility] NRBC abs 0.00 0.00 - 0.01 K/cumm [facility] Blood 04/25/2025 1:25 AM CDT 04/25/2025 1:53 AM CDT Aniceto Foley MD LAB BLOOD ORDERABLES Final Re sult [facility] [place] [address] * (ABNORMAL) Basic metabolic panel (04/25/2025 1:25 AM CDT) [facility] Sodium 145 135 - 145 mmol/L Potassium, pl 4.4 3.3 - 4.9 mmol/L [facility] Chloride 111(H) 97 - 110 mmol/L [facility] CO2 27 22 - 32 mmol/L [facility] Anion gap 7 2 - 15 mmol/L [facility] BUN 27(H) 6 - 25 mg/dL [facility] Creatinine 1.36(H) 0.80 - 1.30 mg/dL [facility] Glucose 107 70 - 199 mg/dL [facility] Comment: Interpretive Data Fasting glucose >/= [...] 2022. Calcium 10.1 8.5 - 10.3 mg/dL [facility] Blood 04/25/2025 1:25 AM CDT 04/25/2025 1:51 AM CDT us Aniceto Foley MD LAB BLOOD ORDERABLES Final Re sult Performing Organization Address City/[facility]/ZIP Co de Phone Number [facility] Department [place] [address] * POCT glucose (04/24/2025 8:19 PM CDT) Glucose, POC 112 70 - 199 mg/dL Blood 04/24/2025 8:19 PM CDT 04/24/2025 8:19 PM CDT us Aniceto Foley MD LAB POCT ORDERABLES - DEVICE Final Result Performing Organization Address City/[facility]/ZIP Co de Phone Number [facility] [facility] [place] [address] * POCT glucose (04/24/2025 4:59 PM CDT) Glucose, POC 136 70 - 199 mg/dL Comment:Glu2: RN/MD Notified Glucose comment 1 Glu2: RN/MD Notified [facility] Blood 04/24/2025 4:59 PM CDT 04/24/2025 4:59 PM CDT us Aniceto Foley MD LAB POCT ORDERABLES - DEVICE Final Result Performing Organization Address [facility] Co de Phone Number [facility] [place] [address] * (ABNORMAL) eGFR (04/24/2025 12:22 PM CDT) Pathologist [facility] eGFR 58(L) >=60 mL/min/1. 73 m2 Comment: [...] ORDERABLES Final Re sult Performing Organization Address City/[facility]/ZIP Co de Phone Number DARIN BRYSON [facility] Department [place] [address] * (ABNORMAL) CBC without differential (04/24/2025 12:22 PM CDT) Pathologist [facility] WBC 4.97 3.80 - 9.90 K/cumm Hgb 9.4(L) 13.0 - 17.5 g/dL [facility] Hct 28.9(L) 38.9 - 50.3 % [facility] Plt 141(L) 150 - 400 K/cumm [facility] MPV 11.2 9.1 - 12.3 fL [facility] RBC 3.09(L) 4.30 - 5.80 M/cumm [facility] MCV 93.5 81.3 - 96.4 fL [facility] MCH 30.4 27.1 - 33.3 pg [facility] MCHC 32.5 32.3 - 35.7 g/dL [facility] RDW CV 15.2(H) 11.1 - 14.9 % [facility] RDW SD 51.5(H) 35.7 - 48.1 fL [facility] NRBC abs 0.00 0.00 - 0.01 K/cumm [facility] Blood 04/24/2025 12:2 2 PM CDT 04/24/2025 12:39 PM CDT Aniceto Foley MD LAB BLOOD ORDERABLES Final Re sult [facility] Department [place] [address] * Lipid panel (04/24/2025 12:22 PM CDT) [...] revised on 2018. Triglycerides 75 <=149 mg/dL [facility] Comment: Interpretive Data Ages < [...] revised on 2018. HDL 42 >=40 mg/dL [facility] Comment: Interpretive Data Ages < [...] on 2018. LDL, calculated 78 <=129 mg/dL [facility] Comment: Interpretive Data Ages < [...] NCEP Expert Panel. Circulation 2004;110:227 3. Juan Pantoja al. BENJAMIN Cardiol. 2020 December 29;5(5):540-548. doi: 10.1001/jamacardio.2020.0013 Current Interpretive Data was last revised on 2024. Non-HDL Cholesterol 93 mg/dL [facility] Comment: Interpretive Data Ages < [...] last revised on 2018. Chol/HDL ratio 3 [facility] Blood 04/24/2025 12:2 2 PM CDT 04/24/2025 12:39 PM CDT us Aniceto Foley MD LAB BLOOD ORDERABLES Final Re sult [facility] [place] [address] * (ABNORMAL) Basic metabolic panel (04/24/2025 12:22 PM CDT) Sodium 140 135 - 145 mmol/L Potassium, pl 4.3 3.3 - 4.9 mmol/L [facility] Chloride 108 97 - 110 mmol/L [facility] CO2 26 22 - 32 mmol/L [facility] Anion gap 6 2 - 15 mmol/L [facility] BUN 32(H) 6 - 25 mg/dL [facility] Creatinine 1.29 0.80 - 1.30 mg/dL [facility] Glucose 117 70 - 199 mg/dL [facility] Comment: Interpretive Data Fasting glucose >/= [...] 2022. Calcium 9.9 8.5 - 10.3 mg/dL [facility] Blood 04/24/2025 12:2 2 PM CDT 04/24/2025 12:39 PM CDT us Aniceto Foley MD LAB BLOOD ORDERABLES Final Re sult Performing Organization Address [facility]/ZIP Co de Phone Number [facility] [place] [address] * POCT glucose (04/24/2025 12:11 PM CDT) Glucose, POC 121 70 - 199 mg/dL Blood 04/24/2025 12:1 1 PM CDT 04/24/2025 12:11 PM CDT us Aniceto Foley MD LAB POCT ORDERABLES - DEVICE Final Result Performing Organization Address [facility] Co de Phone Number [facility] [place] [address] * ANGIOGRAM - HYBRID ROOM, PLACEMENT STENT - ILIAC ARTERY - HYBRID ROOM (04/24/2025 11:50 AM CDT) Anatomical Region Laterality Modality X-Ray Angiograph y Narrative 04/24/2025 3:00 PM CDT Please see OpNote for result. us Aniceto Foley MD SURGICAL CASE ORDERS Final Re sult * ANGIOPLASTY BALLOON/STENT PLACEMENT, PERCUTANEOUS CORONARY LITHROTRIPSY W/ PCI (+) [id number] (04/24/2025 11:50 AM CDT) Anatomical Region Laterality Modality X-Ray Angiograph y Narrative 04/24/2025 3:00 PM CDT Please see OpNote for result. Result Dayana Foley MD CV CARDIAC CATH PROCEDURES Fi nal Result * POCT Activated clotting time, low range (04/24/2025 11:25 AM CDT) ACT 133 123 - 168 sec POC Device Number [id number] [facility] Blood 04/24/2025 11:2 5 AM CDT 04/24/2025 11:25 AM CDT us Aniceto Foley MD LAB POCT ORDERABLES - DEVICE Final Result Performing Organization Address [facility] Co de Phone Number [facility] [place] [address] * (ABNORMAL) POCT Activated clotting time, low range (04/24/2025 11:19 AM CDT) ACT 253(H) 123 - 168 sec POC Device Number [id number] [facility] Blood 04/24/2025 11:1 9 AM CDT 04/24/2025 11:19 AM CDT us Aniceto Foley MD LAB POCT ORDERABLES - DEVICE Final Result Performing Organization Address [facility] Co de Phone Number [facility] [place] [address] * (ABNORMAL) POCT Activated clotting time, low range (04/24/2025 10:59 AM CDT) ACT 265(H) 123 - 168 sec POC Device Number [id number] [facility] Blood 04/24/2025 10:5 9 AM CDT 04/24/2025 10:59 AM CDT us Aniceto Foley MD LAB POCT ORDERABLES - DEVICE Final Result Performing Organization Address [facility] Co de Phone Number [facility] [place] [address] * (ABNORMAL) POCT Activated clotting time, low range (04/24/2025 10:33 AM CDT) ACT 253(H) 123 - 168 sec POC Device Number [id number] [facility] Blood 04/24/2025 10:3 3 AM CDT 04/24/2025 10:33 AM CDT us Aniceto Foley MD LAB POCT ORDERABLES - DEVICE Final Result Performing Organization Address [facility] Co de Phone Number [facility] [place] [address] * (ABNORMAL) POCT Activated clotting time, low range (04/24/2025 10:00 AM CDT) ACT 260(H) 123 - 168 sec POC Device Number [id number] [facility] Blood 04/24/2025 10:0 0 AM CDT 04/24/2025 10:00 AM CDT us Aniceto Foley MD LAB POCT ORDERABLES - DEVICE Final Result Performing Organization Address [facility] Co de Phone Number [facility] Department [place] [address] * (ABNORMAL) POCT Activated clotting time, low range (04/24/2025 9:48 AM CDT) ACT 213(H) 123 - 168 sec POC Device Number [id number] [facility] Blood 04/24/2025 9:48 AM CDT 04/24/2025 9:48 AM CDT us Aniceto Foley MD LAB POCT ORDERABLES - DEVICE Final Result Performing Organization Address [facility] Co de Phone Number [facility] [place] [address] * (ABNORMAL) POC Blood Gas and Chemistries, Arterial - (04/24/2025 9:41 AM CDT) pH, Art POC 7.45 7.35 - 7.45 pCO2, Art POC 36 35 - 45 mmHg [facility] pO2, Art POC 190(H) 83 - 108 mmHg [facility] Na, POC 141 135 - 145 mmol/L [facility] K POC 4.5 3.3 - 4.9 mmol/L [facility] Comment: Interpretive Data Not all point of care methods assess for hemolysis. Confirm with instrument and retest K+ if not consistent with clinical signs and symptoms. Current Interpretive Data was last revised on 2023. Cl, POC 113(H) 97 - 110 mmol/L [facility] Ionized Ca, POC 5.78(H) 4.50 - 5.10 mg/dL [facility] Glucose, POC 136 70 - 199 mg/dL [facility] Lactate POC 1.1 0.7 - 2.0 mmol/L [facility] SO2 (samuel) arterial 99(H) 90 - 95 % [facility] Base excess, POC 1.1 mmol/L [facility] HCO3, Art POC 26 20 - 30 mmol/L [facility] Hct, POC 31.0(L) 41.4 - 51.6 % [facility] Total Hb, POC 10.3(L) 13.8 - 17.2 g/dL [facility] Blood 04/24/2025 9:41 AM CDT 04/24/2025 9:41 AM CDT Aniceto Foley MD LAB POCT ORDERABLES - DEVICE Final Result Performing Organization Address City/State/[facility] Co de Phone Number [facility] [place] [address] * [place] AN PROCEDURE PLACEHOLDER (04/24/2025 9:20 AM CDT) Narrative Jorge Sánchez CRNA - 04/24/2025 9:20 AM CDT Jorge Sánchez CRNA 04/24/2025 9:21 AM Peripheral IV Catheter Patient location: OR Staff: Placed by: FIELD TAX AUDITOR: Jorge Sánchez CRNA Preprocedure prep: Prep solution: [...] MD ANESTHESIA ORDERABLES Fi nal Result * KS AN PROCEDURE PLACEHOLDER (04/24/2025 9:19 AM CDT) [...] MD ANESTHESIA ORDERABLES Fi nal Result * [place] AN PROCEDURE PLACEHOLDER (04/24/2025 9:18 AM CDT) Jorge Sullivan CRNA - 04/24/2025 9:18 AM CDT Jorge Sánchez CRNA 04/24/2025 9:19 AM Arterial Line Patient location: OR Indication: continuous blood pressure monitoring and blood sampling needed Ultrasound assisted: yes Staff: Placed by: FIELD TAX AUDITOR: Jorge Sánchez CRNA Other staff: Yonas Meredith Procedure prep: Prep solution: chlorhexadine/alcohol Prep: provider hat/mask and sterile gloves Arterial line: Catheter size: 20 gauge Catheter length: 1 and 3/4 inch Catheter type: wire-guided catheter Laterality: left Site: radial artery Line secured: Tegaderm Results: good waveform Number of attempts: 1 Assessment: Events: patient tolerated procedure well with no complications Result [facility] us Yuko Rodriguez MD ANESTHESIA ORDERABLES Fi nal Result * KS AN ELECTIVE ENDOTRACHEAL AIRWAY, KS AN PROCEDURE PLACEHOLDER (04/24/2025 8:50 AM CDT) Jorge Sullivan CRNA - 04/24/2025 8:50 AM CDT Jogre Sánchez CRNA 04/24/2025 8:53 AM Airway Patient location: OR Date/time: 04/24/2025 8:47 AM Indications for airway management: anesthesia Difficult airway: no Staff: Supervising provider: Yuko Rodriguez MD Placed by: Anesthesiologist: Yuko Rodriguez MD Other staff: Yonas Meredith airway documentation: Risks and benefits discussed: yes [...] ORDERABLES - DEVICE Final Result DARIN BRYSON [facility] Department [place] [address] * Type and screen (04/24/2025 7:18 AM CDT) Ashlee, indirect Negative ABO Rh A Negative [facility] PERDOMO Blood 04/24/2025 7:18 AM CDT 04/24/2025 7:31 AM CDT Narrative [facility] - 04/24/2025 8:34 AM CDT Has the patient had Daratumumab or Isatuximab in the past 6 months?->Unknown Aniceto Foley MD LAB BLOOD BANK TEST ORDERABLE S Final Result Performing Organization Address [facility]/ZIP Co de Phone Number [facility] [place] [address] * Prepare RBC: 2 Units (04/24/2025 6:46 AM CDT) Product code [id number] [facility] Unit Number [id number] 3-M [facility] Product Blood Type ANEG [facility] Dispense Status RETURNED [facility] Product code [id number] Unit Number [id number] 5-D [facility] Product Blood Type ANEG [facility] Dispense Status RETURNED [facility] Blood 04/24/2025 6:46 AM CDT 04/24/2025 6:46 AM CDT Narrative [facility] - 04/24/2025 11:58 AM CDT Specify Procedure:->Vascular surgery Are special requirements needed? (All products are leukoreduced and CMV- safe)- >No Date required:-[id number] LRRBC # of [id number] Reasons:-Hold for procedure (specify procedure)} Aniceto Foley MD BLOOD BANK PRODUCT ORDERABLES Final Result Performing Organization Address [facility]/ZIP Co de Phone Number [facility] [place] [address] from Last [address] [place] [phone] MARTINEZ [address] [place], [place] [phone] MEDICARE [facility] MEDICARE [facility] Address: [address] [address] [place] [address] [facility] MEDICARE AAR Advance Directives For more information, please contact: [phone] * Full Code (Latest Code Status on File) Date Activated Date Inactivated Comments 04/24/2025 3:12 PM 04/26/2025 3:40 PM * Full Code Date Activated Date Inactivated Comments 11/09/2024 2:36 PM 11/12/2024 6:36 PM * Full Code Date Activated Date Inactivated Comments 10/30/2022 5:29 PM 10/31/2022 7:15 PM * Full Code Date Activated Date Inactivated Comments 08/16/2019 9:46 AM 08/16/2019 5:30 PM Care Teams Supervisor [employer] Relationship Specialty Start Date End Date Fuentes Orellana MD PCP - General 11/28/16 Itz Iyer MD [address] [address] Consulting Physician Urology 05/31/18 Shawnee Mckinney MD [address] [facility] [address] [place] [address] Referring Physician Urology 06/03/18 Chicho Clayton MD [address] [facility] [address] [place] [address] Medical Oncologist/Hematologis t Medical Oncology 06/07/18 Maria Guadalupe Palacios, RN Registered Nurse 06/10/18 Lupillo Davenport MD Referring Physician Radiation Oncology 06/16/18 Danis Meza NP [address] [place] [address] Nurse Practitioner Urology 10/06/22 Antonette Owens NP [address] [place] [address] Nurse Practitioner Cardiovascular Disease 10/06/22 Aniceto Foley MD [address] [place] [address] Surgeon Vascular Surgery 10/31/22
--- OUTSIDE RECORDS SUMMARY | 2025-07-25 21:42 | XMS_ITS | Encounter Summary ---
Author Organization [facility] Healthcare Address [address] [place] [address] Care Team Providers Care Surgical Garment Inspector Name Role Phone Fuentes Orellana MD Primary Care Provider [phone] Itz Iyer MD Unavailable [phone] Shawnee Mckinney MD Unavailable [phone] Chicho Clayton MD Unavailable Maria Guadalupe Palacios RN Unavailable Unava ilable Lupillo Davenport MD Unavailable [phone] Danis Meza INFORMATION SERVICES VICE PRESIDENT Unavailable Antonette Owens NP Unavailable Aniceto Foley MD Unavailable [phone] Reason for Referral * MRI/CAT/PET Scan (Routine) - Authorized Specialty Diagnoses / Procedures Referred By Contac t Referred To Contact Radiology Diagnoses Pelvic pain Procedures [place] [address] [place] [address] Phone: tel: fax: [address] [phone] Referral ID Status Reason Start Date Expiration Date V isits Requested Visits Authorized [id number] Authorized 06/23/2025 07/23/2026 1 1 * Diagnostic Imaging (Routine) - Closed Specialty Diagnoses / Procedures Referred By Luis Felipe huerta Referred To Contact Radiology Diagnoses Microscopic hematuria Procedures CT ABDOMEN [place] [address] [place] [address] Phone: tel: fax: [address] [phone] Referral ID Status Reason Start Date Expiration Date Visits Re quested Visits Authorized [id number] Closed 06/23/2025 07/23/2026 1 1 Encounter Details Date Type Department Care Team (Late st Contact Info) Description 06/23/2025 Community Orders [facility] Epic[place] [address] [place] [address] Microscopic hematuria (Primary Dx); Pelvic pain Social History Tobacco Use Types Packs/Day Years Used Date Smoking Tobacco: Former Cigarettes 1.5 19 1 966 - 1984 Passive Smoke Exposure: Past Smokeless Tobacco: Never Alcohol Use Standard Drinks/Week Comments Yes 4 (1 standard drink = 0.6 oz pur e alcohol) [facility] Utilities Answer Date Recorded In the past 12 months has e electric, gas, oil, or water [employer] threatened to shut off services in your [...] any clubs o r organizations such as yazdanism groups, unions, fraternal or athletic groups, or [...] any time in the past 12 m [facility], were you homeless or living in a retirement (including now)? No 11/11/2024 AUDIT-C Answer Date [...] on file Legal Sex Male 12:32 AM DOCKET SPECIALIST Gender Identity Not on file Sexual Orientation Choose not to disclose 2018 8:58 AM CDT Occupation Industry Job 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 Date retired Not on file Not on file Not on file documented as of this encounter Plan of Treatment Upcoming Encounters Date Type Department Care Team (Latest Contact Info) Description 08/30/2025 7:30 AM DOCKET SPECIALIST Hospital Encounter [facility] Operating Room [facility] [place] [phone] [place] [address] [place] [address] 08/30/2025 7:30 AM DOCKET SPECIALIST - 08/30/2025 10:30 AM DOCKET SPECIALIST Surgery [facility] Operating Room [address] [place] [phone] [place] [address] [place] [address] Revision Artificial Urinary Sphincter Scheduled Orders Name Type Priority Associated Diagnoses Orde r Schedule MRI PELVIS W CONTRAST Imaging Schedule Routine, Read Routine (OP Routine) Pelvic pain Expected: 06/23/2025, Expires: 06/23/2026 Scheduled Procedures Name Priority Associated Diagnoses Date/Ti me REVISION ARTIFICIAL URINARY SPHINCTER Retention of urine 08/30/2025 7:30 AM DOCKET SPECIALIST documented as of this encounter Results * [...] Martinez M.D. [facility] Thomas Meneses MD IM CT PROCEDURES Final Result documented in this encounter Visit Diagnoses Diagnosis Microscopic hematuria- Primary Pelvic pain Microscopic hematuria Retention of urine Unspecified retention of urine documented in this encounter Care Teams Surgical Garment Inspector Relationship Specialty Start Date End Date Fuentes Orellana MD PCP - General 11/28/16 Itz Iyer MD [address] [facility] [address] [place] [address] Consulting Physician Urology 05/31/18 Shawnee Mckinney MD [address] [facility] [address] [place] [address] Referring Physician Urology 06/03/18 Chicho Clayton MD [address] [facility] [address] [place] [address] Medical Oncologist/Hematologis t Medical Oncology 06/07/18 Maria Guadalupe Palacios, RN Registered Nurse 06/10/18 Lupillo Davenport MD Referring Physician Radiation Oncology 06/16/18 Danis Meza NP [address] [facility] [address] [place] [address] Nurse Practitioner Urology 10/06/22 Antonette Owens NP [address] [facility] [address] [place] [address] Nurse Practitioner Cardiovascular Disease 10/06/22 Aniceto Foley MD [address] [place] [address] Surgeon Vascular Surgery 10/31/22 documented as of this encounter
--- OUTSIDE RECORDS SUMMARY | 2025-07-25 21:42 | XMS_ITS | Encounter Summary ---
Author Organization [facility] Healthcare Address [address] [place] [address] Care Team Providers Care Clothespin Drier Operator Name Role Phone Fuentes Orellana MD Primary Care Provider [phone] Itz Iyer MD Unavailable [phone] Shawnee Mckinney MD Unavailable [phone] Chicho Clayton MD Unavailable Maria Guadalupe Palacios RN Unavailable Unava ilable Lupillo Davenport MD Unavailable [phone] Danis Meza DRY TRANSFER WORKER Unavailable [phone] Antonette Owens NP Unavailable Aniceto Foley MD Unavailable [phone] Encounter Details Date Type Department Care Team (Latest Contact Info) Description 07/25/2025 Results Follow-Up [facility] Medical Group Cardiology [address] [phone] Jazmyn Fisher, MARÍA [address] [address] Transthoracic Echo (TTE) Complete W Doppler/CF Social History Tobacco Use Types Packs/Day Years Used Date Smoking Tobacco: Former Cigarettes 1.5 19 1 966 - 1985 Passive Smoke Exposure: Past Smokeless Tobacco: Never Alcohol Use Standard Drinks/Week Comments Yes 4 (1 standard drink = 0.6 oz pur e alcohol) [facility] Utilities Answer Date Recorded In the past [...] any clubs o r organizations such as caodaism groups, unions, fraternal or athletic groups, or [...] in the past 12 m [facility], were you homeless or living in a long-term (including now)? No 11/11/2024 AUDIT-C Answer Date [...] on file Legal Sex Male 12:32 AM MIDDLE SCHOOL SCIENCE TEACHER Gender Identity Not on file Sexual Orientation Choose not to disclose 2018 8:58 AM CDT Occupation Industry Job 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 Date retired Not on file Not on file Not on file documented as of this encounter Miscellaneous Notes * Telephone Encounter - Monica Aldana RN - 07/25/2025 8:29 AM MIDDLE SCHOOL SCIENCE TEACHER Spoke with pt, results reviewed. Pt verbalizes understanding. LE SCHOOL SCIENCE TEACHER documented in this encounter Plan of Treatment Upcoming Encounters Date Type Department Care Team (Latest Contact Info) Description 08/30/2025 7:30 AM MIDDLE SCHOOL SCIENCE TEACHER Hospital Encounter [facility] Operating Room [address] [place] [phone] [place] [address] [place] [address] 08/30/2025 7:30 AM MIDDLE SCHOOL SCIENCE TEACHER - 08/30/2025 10:30 AM MIDDLE SCHOOL SCIENCE TEACHER Surgery [facility] Operating Room [address] [place] [phone] [place] [address] [place] [address] Revision Artificial Urinary Sphincter Scheduled Procedures Name Priority Associated Diagnoses Date/Ti me REVISION ARTIFICIAL URINARY SPHINCTER Retention of urine 08/30/2025 7:30 AM MIDDLE SCHOOL SCIENCE TEACHER documented as of this encounter Visit Diagnoses Not on filedocumented in this encounter Care Teams Clothespin Drier Operator Relationship Specialty Start Date End Date Fuentes Orellana MD PCP - General 11/28/16 Itz Iyer MD [address] [facility] [address] [place] [address] Consulting Physician Urology 05/31/18 Shawnee Mckinney MD 4960 [facility] [address] [place] [address] Referring Physician Urology 06/03/18 Chicho Clayton MD 49[address] [facility] [address] [place] [address] Medical Oncologist/Hematologis t Medical Oncology 06/07/18 Maria Guadalupe Palacios, RN Registered Nurse 06/10/18 Lupillo Davenport MD Referring Physician Radiation Oncology 06/16/18 Danis Meza NP [address] [facility] [address] [place] [address] Nurse Practitioner Urology 10/06/22 Antonette Owens NP [address] [facility] [address] [place] [address] Nurse Practitioner Cardiovascular Disease 10/06/22 Aniceto Foley MD [address] [place] [address] Surgeon Vascular Surgery 10/31/22 documented as of this encounter
--- OUTSIDE RECORDS SUMMARY | 2025-07-25 21:42 | XMS_ITS | Encounter Summary ---
Author Organization [facility] Address [address] [place] [address] Care Team Providers Care Pump Rebuilder Name Role Phone Fuentes Orellana MD Primary Care Provider + [phone] Itz Iyer MD Unavailable [phone] Lupillo Davenport MD Unavailable [phone] Lupillo Davenport MD Unavailable [phone] Shawnee Mckinney MD Unavailable [phone] Chicho Clayton MD Unavailable Newton Weeks MD Unavailable [phone] Maria Guadalupe Palacios RN Unavailable Unava ilable Lupillo Davenport MD Unavailable [phone] Itz Iyer MD Unavailable [phone] Itz Iyer MD Unavailable +[phone] Itz Iyer MD Unavailable +[phone] Itz Iyer MD Unavailable [phone] Itz Iyer MD Unavailable [phone] Itz Iyer MD Unavailable [phone] Danis Meza NP Unavailable [phone] Antonette Owens NP Unavailable Aniceto Foley MD Unavailable Encounter Details Date Type Department Care Team (Late st Contact Info) Description 03/16/2018 Orders Only [facility] Health Information Management [address] [place] [address] Scanning, Provider Social History Tobacco Use Types Packs/Day Years Used Date Smoking Tobacco: Never Smokeless Tobacco: Never Alcohol Use Standard Drinks/Week Comments Yes 0 (1 standard drink = 0.6 oz pur e alcohol) Sex and Gender Information Value Date Recorded Sex Assigned at Not on file Legal Sex Male 12:32 AM REVENUE AUDIT CLERK Gender Identity Not on file Sexual Orientation Choose not to disclose 2018 8:58 AM CDT documented as of this encounter Plan of Treatment Upcoming Encounters Date Type Department Care Team (Latest Contact Info) Description 08/30/2025 7:30 AM REVENUE AUDIT CLERK Hospital Encounter [facility] Operating Room [address] [place] [phone] [place] [address] [place] [address] 08/30/2025 7:30 AM REVENUE AUDIT CLERK - 08/30/2025 10:30 AM REVENUE AUDIT CLERK Surgery [facility] Operating Room [address] [place] [phone] [place] [address] [place] [address] Revision Artificial Urinary Sphincter Scheduled Procedures Name Priority Associated Diagnoses Date/Ti me REVISION ARTIFICIAL URINARY SPHINCTER Retention of urine 08/30/2025 7:30 AM REVENUE AUDIT CLERK documented as of this encounter Procedures Procedure Name Priority Date/Time Associated Diagnosis Comments SCAN - LABS 03/16/2018 documented in this encounter Results * SCAN - LABS (03/16/2018) us Provider Scanning Final Result documented in this encounter Visit Diagnoses Not on filedocumented in this encounter Care Teams Pump Rebuilder Relationship Specialty Start Date End Date Fuentes Orellana MD PCP - General 11/28/16 Itz Iyer MD [address] [place] [address] Consulting Physician Urology 05/31/18 Lupillo Davenport MD [address] [place] [address] Referring Physician Radiation Oncology 05/31/18 Lupillo Davenport MD [address] [place] [address] Referring Physician Radiation Oncology 05/31/18 Shawnee Mckinney MD [address] [facility] [address] [place] [address] Referring Physician Urology 06/03/18 Chicho Clayton MD [address] [facility] [address] [place] [address] Medical Oncologist/Hematologis t Medical Oncology 06/07/18 Newton Weeks MD [address] [facility] [address] [place] [address] Referring Physician Radiation Oncology 06/07/18 Maria Guadalupe Palacios, RN Registered Nurse 06/10/18 Lupillo Davenport MD [address] [place] [address] Referring Physician Radiation Oncology 06/16/18 Itz Iyer MD [address] [place] [address] Consulting Physician Urology 06/17/18 06/17/18 Itz Iyer MD [address] [place] [address] Consulting Physician Urology 06/18/18 06/18/18 Itz Iyer MD [address] [place] [address] Consulting Physician Urology 06/18/18 06/18/18 Itz Iyer MD [address] [place] [address] Consulting Physician Urology 06/22/18 06/22/18 Itz yIer MD [address] [place] [address] Consulting Physician Urology 07/01/18 07/01/18 Itz Iyer MD [address] [place] [address] Consulting Physician Urology 07/06/18 07/06/18 Danis Meza NP [address] [place] [address] Nurse Practitioner Urology 10/06/22 Antonette Owens NP [address] [place] [address] Nurse Practitioner Cardiovascular Disease 10/06/22 Aniceto Foley MD [address] [place] [address] Surgeon Vascular Surgery 10/31/22 documented as of this encounter
--- OUTSIDE RECORDS SUMMARY | 2025-07-25 21:42 | XMS_ITS | Encounter Summary ---
Author Organization [facility] Address [address] [place] [address] Care Team Providers Care Tourist Information Assistant Name Role Phone Fuentes Orellana MD Primary Care Provider + [phone] Itz Iyer MD Unavailable [phone] Shawnee Mckinney MD Unavailable [phone] Chicho Clayton MD Unavailable Maria Guadalupe Palacios RN Unavailable Unava ilable Lupillo Davenport MD Unavailable [phone] Danis Meza FALSEWORK BUILDER Unavailable [phone] Antonette Owens NP Unavailable Aniceto Foley MD Unavailable [phone] Encounter Details Date Type Department Care Team (Late st Contact Info) Description 07/11/[address] [facility] Health Information Management [address] [place] [address] Scanning, Provider Social History Tobacco Use Types [...] file Legal Sex Male 12:32 AM DIRECTOR OF CURRICULUM AND INSTRUCTION Gender Identity Not on file Sexual Orientation Choose not to disclose 2018 8:58 AM CDT Occupation Industry Job 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 Date retired Not on file Not on file Not on file documented as of this encounter Plan of Treatment Upcoming Encounters Date Type Department Care Team (Latest Contact Info) Description 08/30/2025 7:30 AM DIRECTOR OF CURRICULUM AND INSTRUCTION Hospital Encounter [facility] Operating Room [address] [place] [phone] [place] [address] [place] [address] 08/30/2025 7:30 AM DIRECTOR OF CURRICULUM AND INSTRUCTION - 08/30/2025 10:30 AM DIRECTOR OF CURRICULUM AND INSTRUCTION Surgery [facility] Operating Room [address] [place] [address] [phone] [place] [address] [place] [address] Revision Artificial Urinary Sphincter Scheduled Procedures Name Priority Associated Diagnoses Date/Ti me REVISION ARTIFICIAL URINARY SPHINCTER Retention of urine 08/30/2025 7:30 AM DIRECTOR OF CURRICULUM AND INSTRUCTION documented as of this encounter Procedures Procedure Name Priority Date/Time Associated Diagnosis Comments SCAN - RADIOLOGY/IMAGING 07/10/2024 documented in this encounter Results * SCAN - RADIOLOGY/IMAGING (07/10/2024) Anatomical Region Laterality Modality Other us Provider Scanning Edited Result - Final documented in this encounter Visit Diagnoses Not on filedocumented in this encounter Care Teams Tourist Information Assistant Relationship Specialty Start Date End Date Fuentes Orellana MD PCP - General 11/28/16 Itz Iyer MD [address] [place] [address] Consulting Physician Urology 05/31/18 Shawnee Mckinney MD [address] [facility] [address] [place] [address] Referring Physician Urology 06/03/18 Chicho Clayton MD [address] [facility] [address] [place] [address] Medical Oncologist/Hematologis t Medical Oncology 06/07/18 Maria Guadalupe Palacios, RN Registered Nurse 06/10/18 Lupillo Davenport MD Referring Physician Radiation Oncology 06/16/18 Danis Meza NP [address] [facility] [address] [place] [address] Nurse Practitioner Urology 10/06/22 Antonette Owens NP [address] [facility] [address] [place] [address] Nurse Practitioner Cardiovascular Disease 10/06/22 Aniceto Foley MD [address] [place] [address] Surgeon Vascular Surgery 10/31/22 documented as of this encounter
--- OUTSIDE RECORDS SUMMARY | 2025-07-25 21:42 | XMS_ITS ---
Author Organization [facility] [address] Address [address] [place] [address] Care Team Providers Care Supply Chain Technician Name Role Phone Fuentes Orellana MD Primary Care Provider Itz Iyer MD Unavailable [phone] Shawnee Mckinney MD Unavailable [phone] Chicho Clayton MD Unavailable Maria Guadalupe Palacios RN Unavailable Unava ilable Lupillo Davenport MD Unavailable [phone] Danis Meza SET UP WORKER Unavailable Antonette Owens NP Unavailable Aniceto Foley [...] (10/21/2022): Added automatically from request for surgery [id number] Assessment & Plan (10/30/2022 2:56 PM FOREMAN/PROJECT MANAGER): - OR 3/2 for planned R CEA - OU status, Q2h NV/VS monitoring - Bedrest today, OOB/PT POD #1 - SBP goal 100-160, nicardipine for elevated BP - Continue aspirin and statin - Plan to stager home medications and resume overnight Atherosclerosis of douglas ar teries of extremities with intermittent claudication, bilateral legs 06/03/2022 Melanoma 01/10/2021 Anxiety 01/10/2021 DM (diabetes mellitus) 01/10/2021 Assessment & Plan (04/25/2025 6:06 AM CDT): NIDDM, on finerenon, amaryl, tradjenta. - Hold home PO diabetic meds while inpatient. Restart at discharge. - Diabetic diet, SSI Assessment & Plan (10/30/2022 9:59 AM FOREMAN/PROJECT MANAGER): - A1c 7.6% 10/2022 - SSI while inpatient - CC diet when eating Elevated left ventricular end-diastolic pressure (LVEDP) 11/15/2019 Encounter for surgical after care following surgery of circulatory system 05/20/2019 Prostate cancer 09/10/2018 Assessment & Plan (10/27/2018 9:53 AM FOREMAN/PROJECT MANAGER): Follows with urology, has his PSA monitored it is increasing, but still WNL 1.4 Assessment & Plan (09/22/2018 11:35 AM FOREMAN/PROJECT MANAGER): Has close follow up with his oncologist. His PSA was slightly elevated on last check. Hyperlipidemia 09/21/2017 Assessment & Plan (06/30/2018 9:38 AM CDT): His last lipid panel was within acceptable range; he will continue on a high intensity statin. Assessment & Plan (09/21/2017 11:34 AM FOREMAN/PROJECT MANAGER): Continue Lipitor 40 mg daily. Essential hypertension 07/20/2017 Assessment & Plan (10/30/2022 2:57 PM FOREMAN/PROJECT MANAGER): - Tight BP goals post-procedure - Continue home medications as indicated by BP goals as above, staggering overnight for gentle BP control Assessment & Plan (10/27/2018 9:54 AM FOREMAN/PROJECT MANAGER): Hypertension is unchanged. Dietary sodium restriction. Blood pressure will be reassessed in 4 weeks. Assessment & Plan (09/22/2018 11:38 AM FOREMAN/PROJECT MANAGER): Hypertension remains elevated. He is increasing [...] today Assessment & Plan (09/21/2017 11:33 AM FOREMAN/PROJECT MANAGER): Blood pressure is well controlled today. Last visit we added HCTZ 12.5 mg daily. Continue current medications Assessment & Plan (08/10/2017 11:26 AM FOREMAN/PROJECT MANAGER): Blood pressure is not controlled. Add hydrochlorothiazide 12.5 mg p.o. daily. He is compliant with medications but always add salt to food which I advised him not to do that. Assessment & Plan (07/20/2017 9:19 AM FOREMAN/PROJECT MANAGER): Blood pressure remains uncontrolled. We will order renal Doppler ultrasound to rule out renal artery stenosis given the fact that he has peripheral vascular disease and coronary artery disease. I will increase amlodipine from 5-10 mg p.o. daily. If that does not control the blood pressure we will add hydrochlorothiazide 12.5 mg p.o. Daily. Coronary artery disease invo lving douglas coronary artery of douglas heart without angina pectoris 07/20/2017 Assessment & Plan (10/30/2022 9:58 AM FOREMAN/PROJECT MANAGER): - Continue home medications as able - Maintained on Brilinta as an outpatient; held 1 week prior to OR - Will discuss with surgery team when to safely resume post-procedure Assessment & Plan (10/27/2018 9:59 AM FOREMAN/PROJECT MANAGER): Coronary artery disease is improving with lifestyle modifications. Continue current treatment regimen. Cardiac status will be reassessed in 3 months. No chest pain. Minimal SOB. Continue asa, statin, brilinta Assessment & Plan (09/22/2018 11:36 AM FOREMAN/PROJECT MANAGER): Coronary artery disease is unchanged. Regular [...] BB. Assessment & Plan (09/21/2017 11:33 AM FOREMAN/PROJECT MANAGER): Continue aspirin, Brilinta, Toprol XL and atorvastatin. Assessment & Plan (08/10/2017 11:27 AM FOREMAN/PROJECT MANAGER): Continue Brilinta and aspirin. Asymptomatic. Assessment & Plan (07/20/2017 9:19 AM FOREMAN/PROJECT MANAGER): Continue aspirin, Brilinta, Lipitor , metoprolol [...] plan. Assessment & Plan (10/27/2018 9:21 AM FOREMAN/PROJECT MANAGER): S/P bilateral ALVA angioplasty; right EIA angioplasty/stent 11/21/14. S/P aortoiliac angioplasty/stent 05/28/09. Continues on asa, statin and brilinta Assessment & Plan (09/21/2017 11:34 AM FOREMAN/PROJECT MANAGER): He follows up with vascular surgery at [facility] Assessment & Plan (08/10/2017 11:27 AM FOREMAN/PROJECT MANAGER): Renal ultrasound suggest more than 60% stenosis in the right renal artery and infrarenal stenosis 50-70%. He follows up with Dr. Foley from vascular surgery at [facility] Assessment & Plan (07/20/2017 9:20 AM FOREMAN/PROJECT MANAGER): Patient will follow up with Dr. Foley from vascular surgery. He does have some claudication when he walks. 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 -Urology consulted intra-op: AUS was activated but feel patient unable to empty due to bedrest. Patient wanted urology to completely deactivate which was done. -825PM: issues with retention. Urology called back. re-activate [...] 02/09/2019 Assessment & Plan (10/27/2018 10:17 AM FOREMAN/PROJECT MANAGER): Persistent dizziness. Has stopped caffeine intake. [...] implant or graft 6 02/09/2019 Atherosclerosis of douglas artery of extremity 04/15/20 16 02/09/2019 Assessment & Plan (09/22/2018 11:26 AM FOREMAN/PROJECT MANAGER): 80% circumflex s/p RICHARD. Moderate 30 % LAD with bridging Impotence of organic origin 09/18/2015 02/09/2019 Urinary tract infection 01/18/201501/29 Incontinence 01/18/2015 02/09/2019 Stricture, urethra 07/31/2011 9 Overview (12/10/2017): Description: Dilation 06/09/11 Nocturia 11/28/2010 02/09/2019 Hypertension 05/16/2009 02/09/2019 Assessment & Plan (10/27/2018 10:11 AM FOREMAN/PROJECT MANAGER): Hypertension is {improving/stable/worsenin}. {plan; hypertension for POC:[id number]} Blood pressure will be reassessed {plan; follow-up 2 weeks/4weeks/3months:[id number]}. Increase amolodipine to 10 mg Continue all [...]
--- OUTSIDE RECORDS SUMMARY | 2025-07-25 21:42 | XMS_ITS | Encounter Summary ---
Author Organization [facility] Address [address] [place] [address] Phone Care Team Providers Care Manager Fleet Name Role Phone Fuentes Orellana MD Primary Care Provider [phone] Itz Iyer MD Unavailable [phone] Lupillo Davenport MD Unavailable [phone] Lupillo Davenport MD Unavailable [phone] Shawnee Mckinney MD Unavailable [phone] Chicho Clayton MD Unavailable Newton Weeks MD Unavailable [phone] Maria Guadalupe Palacios RN Unavailable Unava ilable Lupillo Davenport MD Unavailable [phone] Itz Iyer MD Unavailable [phone] Itz Iyer MD Unavailable [phone] Itz Iyer MD Unavailable [phone] Itz Iyer MD Unavailable [phone] Itz Iyer MD Unavailable [phone] Itz Iyer MD Unavailable [phone] Danis Meza SINGLE ENDING MACHINE OPERATOR Unavailable Antonette Owens SINGLE ENDING MACHINE OPERATOR Unavailable Aniceto Foley MD Unavailable [phone] Encounter Details Date Type Department Care [...] on file Legal Sex Male 12:32 AM TIMBER BUCKER Gender Identity Not on file Sexual Orientation Choose not to disclose 2018 8:58 AM CDT documented as of this encounter Plan of Treatment Upcoming Encounters Date Type Department Care Team (Latest Contact Info) Description 08/30/2025 7:30 AM TIMBER BUCKER Hospital Encounter [facility] Operating Room [address] [place] [phone] [place] [address] [place] [address] 08/30/2025 7:30 AM TIMBER BUCKER - 08/30/2025 10:30 AM TIMBER BUCKER Surgery [facility] Operating Room [address] [place] [phone] [place] [address] [place] [address] Revision Artificial Urinary Sphincter Scheduled Procedures Name Priority Associated Diagnoses Date/Ti me REVISION ARTIFICIAL URINARY SPHINCTER Retention of urine 08/30/2025 7:30 AM TIMBER BUCKER documented as of this encounter Procedures Procedure Name Priority Date/Time Associated Diagnosis Comments VASCULAR LABORATORY REPORT 05/04/2017 3:29 PM CDT documented in this encounter Results * VASCULAR LABORATORY REPORT (05/04/2017 3:29 PM CDT) Anatomical Region Laterality Modality Ultrasound us Provider Scanning CV VASCULAR PROCEDURES Final R esult documented in this encounter Visit Diagnoses Not on filedocumented in this encounter Care Teams Manager Fleet Relationship Specialty Start Date End Date Fuentes Orellana MD PCP - General 11/28/16 Itz Iyer MD [address] [place], [place] [address] Consulting Physician Urology 05/31/18 Lupillo Davenport MD [address] [place] [address] Referring Physician Radiation Oncology 05/31/18 Lupillo Davenport MD [address] [place] [address] Referring Physician Radiation Oncology 05/31/18 Shawnee Mckinney MD [address] [facility] [address] [place] [address] Referring Physician Urology 06/03/18 Chicho Clayton MD [address] [facility] [address] [place] [address] Medical Oncologist/Hematologis t Medical Oncology 06/07/18 Newton Weeks MD [address] [facility] [address] [place] [address] Referring Physician Radiation Oncology 06/07/18 Marai Guadalupe Palacios, RN Registered Nurse 06/10/18 Lupillo Davenport MD [address] [place] [address] Referring Physician Radiation Oncology 06/16/18 Itz Iyer MD [address] [facility] [address] [place] [address] Consulting Physician Urology 06/17/18 06/17/18 Itz Iyer MD [address] [place] [address] Consulting Physician Urology 06/18/18 06/18/18 Itz Iyer MD [address] [facility] [address] [place] [address] Consulting Physician Urology 06/18/18 06/18/18 Itz Iyer MD [address] [place] [address] Consulting Physician Urology 06/22/18 06/22/18 Itz Iyer MD [address] [address] Consulting Physician Urology 07/01/18 07/01/18 Itz Iyer MD [address] [place] [address] Consulting Physician Urology 07/06/18 07/06/18 Danis Meza NP [address] [place] [address] Nurse Practitioner Urology 10/06/22 Antonette Owens NP [address] [place] [address] Nurse Practitioner Cardiovascular Disease 10/06/22 Aniceto Foley MD [address] [place] [address] Surgeon Vascular Surgery 10/31/22 documented as of this encounter
--- OUTSIDE RECORDS SUMMARY | 2025-07-25 21:42 | XMS_ITS | Encounter Summary ---
Author Organization [facility] Address [address] [place] [address] Phone Care Team Providers Care Frog Farmer Name Role Phone Fuentes Orellana MD Primary Care Provider Brent Dickinson DO Unavailable [phone] Faviola Jiménez ESTIMATING ENGINEER, JAMB CUTTER Unavailable Shawnee Mckinney MD Unavailable Chicho Clayton MD Unavailable Lai Lambert ESTIMATING ENGINEER, JAMB CUTTER Unavailable [phone] Kami Meneses MD Unavailable [phone] Anette Bond MD Unavailable [phone] Kay Gordon ESTIMATING ENGINEER, JAMB CUTTER Unavailable Kami Meneses MD Unavailable [phone] Kami Meneses MD Unavailable [phone] Kami Meneses MD Unavailable [phone] Reason for Visit * Reason Comments Medication Refill Encounter Details Date Type Department Care Team (Late st Contact Info) Description 11/12/2022 Refill [facility] - Gastroenterology - [place] [address] [place] [address] Ingrid Mccloud Ashley, PAC [address] [place] [address] Medication Refill Social History Tobacco Use Types [...] on filedocumented in this encounter Care Teams Frog Farmer Relationship Specialty Start Date End Date Fuentes Orellana MD [address] [place] [address] PCP - General Family Medicine 07/06/15 Brent Dickinson DO [address] [address] Gastroenterology 06/27/16 Faviola Jiménez APRN, JAMB CUTTER [address] [place] [address] Nurse Practitioner Advanced Practice Nurse 07/22/16 Shawnee Mckinney MD [address] [facility] [address] [place] [address] Urologist Urology 06/07/19 Chicho Clayton MD [address] [facility] [address] [place] [address] Oncology 06/13/19 Lai Lambert APRN, JAMB CUTTER [address] [place] [address] Nurse Practitioner Advanced Practice Nurse 02/10/23 Kami Meneses MD [address] [address] Consulting Physician Urology 06/16/23 Anette Bond MD [address] [place] [address] Consulting Physician Gastroenterology 12/25/22 Kay Gordon APRN, JAMB CUTTER [address] [place] [address] Nurse Practitioner Advanced Practice Nurse 06/16/24 Kami Meneses MD [address], [facility] [address] [place] [address] Consulting Physician Urology 08/19/24 Kami Meneses MD [address], [facility] [place] [address] [place] [address] Consulting Physician Urology 01/06/25 Kami Meneses MD [address], [facility] [place] [address] [place] [address] Consulting Physician Urology 03/08/25 documented as of this encounter
--- OUTSIDE RECORDS SUMMARY | 2025-07-25 21:42 | XMS_ITS | Encounter Summary ---
Author Organization [facility] Address [address] [place] [address] Phone Care Team Providers Care Awning Finisher Name Role Phone Fuentes Orellana MD Primary Care Provider Brent Dickinson DO Unavailable [phone] Faviola Jiménez HOSPITAL CLEANER, HAND HOSE CUTTER Unavailable Shawnee Mckinney MD Unavailable Chicho Clayton MD Unavailable Lai Lambert HOSPITAL CLEANER, HAND HOSE CUTTER Unavailable [phone] Kami Meneses MD Unavailable Anette Bond MD Unavailable [phone] Kay Gordon HOSPITAL CLEANER, HAND HOSE CUTTER Unavailable Kami Meneses MD Unavailable [phone] Kami Meneses MD Unavailable [phone] Kami Meneses MD Unavailable [phone] Encounter Details Date Type Department Care Team (Late st Contact Info) Description 12/16/2024 Telephone [facility] [address] [place] [address] Kami Meneses MD #[address] [place] [address] Social History Tobacco Use Types Packs/Day Years [...] cory e documented as of this encounter Functional Status * BP Answer Date of Assessment Author 134/64 12/16/2024 10:20 AM CDT Fuentes, Am paola R * Pulse Answer Date of Assessment Author 68 12/16/2024 10:20 AM CDT Fuentes, Am paola R * Resp Answer Date of Assessment Author 18 12/16/2024 10:20 AM CDT Fuentes, Am paola R * SpO2 Answer Date of Assessment Author 98 12/16/2024 10:20 AM CDT Fuentes, Am paola R documented as of this encounter Mental Status * BP Answer Entry Date Author 134/64 12/16/2024 10:20 AM CDT Fuentes, Am paola R * Pulse Answer Entry Date Author 68 12/16/2024 10:20 AM CDT Fuentes, Am paola R * SpO2 Answer Entry Date Author 98 12/16/2024 10:20 AM CDT Fuentes, Am paola R documented in this encounter Miscellaneous Notes * Telephone Encounter - Elidia Dill - 12/16/2024 3:06 PM CDT Pt states he sees Dr. Chicho Clayton at [facility] for prostate. * Telephone Encounter - Kami Meneses MD - 12/16/2024 11:45 AM CDT Can you ask the patient who follows him for his prostate cancer? documented in this encounter Plan of Treatment Not on file documented as of this encounter Visit Diagnoses Not on filedocumented in this encounter Care Teams Awning Finisher Relationship Specialty Start Date End Date Fuentes Orellana MD [address] [address] PCP - General Family Medicine 07/06/15 Brent Dickinson DO [address] [place] [address] Gastroenterology 06/27/16 Faviola Jiménez HOSPITAL CLEANER, HAND HOSE CUTTER [address] [address] Nurse Practitioner Advanced Practice Nurse 07/22/16 Shawnee Mckinney MD 4960 [facility] [address]242 [place] [address] Urologist Urology 06/07/19 Chicho Clayton MD 4921 [facility] 7 [place] [address] Oncology 06/13/19 Lai Lambert HOSPITAL CLEANER, HAND HOSE CUTTER #[address] [place] [address] Nurse Practitioner Advanced Practice Nurse 02/10/23 Kami Meneses MD #[address] [address] Consulting Physician Urology 06/16/23 Anette Bond MD [address] [place] [address] Consulting Physician Gastroenterology 12/25/22 Kay Gordon APRN, HAND HOSE CUTTER #2 [place] [address] Nurse Practitioner Advanced Practice Nurse 06/16/24 Kami Meneses MD [facility] [facility] [address] [place] [address] Consulting Physician Urology 08/19/24 Kami Meneses MD [address] [address] Consulting Physician Urology 01/06/25 Kami Meneses MD [address] [place] [address] Consulting Physician Urology 03/08/25 documented as of this encounter
--- OUTSIDE RECORDS SUMMARY | 2025-07-25 21:42 | XMS_ITS | Encounter Summary ---
Author Organization [facility] Address [address] [place] [address] Phone Care Team Providers Care Lubrication Servicer Name Role Phone Fuentes Orellana MD Primary Care Provider + [phone] Itz Iyer MD Unavailable [phone] Shawnee Mckinney MD Unavailable [phone] Chicho Clayton MD Unavailable Maria Guadalupe Palacios RN Unavailable Unava ilable Lupillo Davenport MD Unavailable [phone] Danis Meza ROD TAPE OPERATOR Unavailable [phone] Antonette Owens NP Unavailable Aniceto Foley MD Unavailable [phone] Encounter Details Date Type Department Care [...] on file Legal Sex Male 12:32 AM FUNDING COORDINATOR Gender Identity Not on file Sexual Orientation Choose not to disclose 2018 8:58 AM CDT documented as of this encounter Plan of Treatment Upcoming Encounters Date Type Department Care Team (Latest Contact Info) Description 08/30/2025 7:30 AM FUNDING COORDINATOR Hospital Encounter [facility] Operating Room [facility] [place] [phone] [place] [address] [place] [address] 08/30/2025 7:30 AM FUNDING COORDINATOR - 08/30/2025 10:30 AM FUNDING COORDINATOR Surgery [facility] Operating Room [facility] [place] [phone] [place] [address] [place] [address] Revision Artificial Urinary Sphincter Scheduled Procedures Name Priority Associated Diagnoses Date/Ti me REVISION ARTIFICIAL URINARY SPHINCTER Retention of urine 08/30/2025 7:30 AM FUNDING COORDINATOR documented as of this encounter Procedures Procedure Name Priority Date/Time Associated Diagnosis Comments SCAN - RADIOLOGY/IMAGING 01/18/2019 documented in this encounter Results * SCAN - RADIOLOGY/IMAGING (01/18/2019) Anatomical Region Laterality Modality Other us Provider Scanning Final Result documented in this encounter Visit Diagnoses Not on filedocumented in this encounter Care Teams Lubrication Servicer Relationship Specialty Start Date End Date Fuentes Orellana MD PCP - General 11/28/16 Itz Iyer MD [address] [address] Consulting Physician Urology 05/31/18 Shawnee Mckinney MD [address] [facility] [address] [place], [place] [address] Referring Physician Urology 06/03/18 Chicho Clayton MD [address] [facility] [address] [place] [address] Medical Oncologist/Hematologis t Medical Oncology 06/07/18 Maria Guadalupe Palacios, RN Registered Nurse 06/10/18 Lupillo Davenport MD Referring Physician Radiation Oncology 06/16/18 Danis Meza NP [address] [facility] [address] [place] [address] Nurse Practitioner Urology 10/06/22 Antonette Owens NP [address] [place] [address] Nurse Practitioner Cardiovascular Disease 10/06/22 Aniceto Foley MD [address] [place] [address] Surgeon Vascular Surgery 10/31/22 documented as of this encounter
--- OUTSIDE RECORDS SUMMARY | 2025-07-25 21:42 | XMS_ITS | Encounter Summary ---
Author Organization [facility] Address [address] [place] [address] Care Team Providers Care Concrete Wall Grinder Operator Name Role Phone Fuentes Orellana MD Primary Care Provider + [phone] Itz Iyer MD Unavailable + [phone] Lupillo Davenport MD Unavailable [phone] Lupillo Davenport MD Unavailable [phone] Shawnee Mckinney MD Unavailable [phone] Chicho Clayton MD Unavailable Newton Weeks MD Unavailable [phone] Maria Guadalupe Palacios RN Unavailable Unava ilable Lupillo Davenport MD Unavailable [phone] Itz Iyer MD Unavailable [phone] Itz Iyer MD Unavailable +[phone] Itz Iyer MD Unavailable +[phone] Itz Iyer MD Unavailable +[phone] Itz Iyer MD Unavailable [phone] Itz Iyer MD Unavailable [phone] Danis Meza NP Unavailable [phone] Antonette Owens NP Unavailable Aniceto Foley MD Unavailable Encounter Details Date Type Department Care Team (Late st Contact Info) Description 04/12/2018 Orders Only [facility] Information Management [address] [place] [address] Scanning, Provider Social History Tobacco Use Types Packs/Day Years Used Date Smoking Tobacco: Never Smokeless Tobacco: Never Alcohol Use Standard Drinks/Week Comments Yes 0 (1 standard drink = 0.6 oz pur e alcohol) Sex and Gender Information Value Date Recorded Sex Assigned at Not on file Legal Sex Male 12:32 AM CASING TESTER Gender Identity Not on file Sexual Orientation Choose not to disclose 2018 8:58 AM CDT documented as of this encounter Plan of Treatment Upcoming Encounters Date Type Department Care Team (Latest Contact Info) Description 08/30/2025 7:30 AM CASING TESTER Hospital Encounter [facility] Operating Room [address] [place] [phone] [place] [address] [place] [address] 08/30/2025 7:30 AM CASING TESTER - 08/30/2025 10:30 AM CASING TESTER Surgery [facility] Operating Room [address] [place] [phone] [place] [address] [place] [address] Revision Artificial Urinary Sphincter Scheduled Procedures Name Priority Associated Diagnoses Date/Ti me REVISION ARTIFICIAL URINARY SPHINCTER Retention of urine 08/30/2025 7:30 AM CASING TESTER documented as of this encounter Procedures Procedure Name Priority Date/Time Associated Diagnosis Comments SCAN - RADIOLOGY/IMAGING 04/12/2018 documented in this encounter Results * SCAN - RADIOLOGY/IMAGING (04/12/2018) Anatomical Region Laterality Modality Other us Provider Scanning Edited Result - Final documented in this encounter Visit Diagnoses Not on filedocumented in this encounter Care Teams Concrete Wall Grinder Operator Relationship Specialty Start Date End Date Fuentes Orellana MD PCP - General 11/28/16 Itz Iyer MD [address] [place] [phone] Consulting Physician Urology 05/31/18 Lupillo Davenport MD [address] [place] [address] Referring Physician Radiation Oncology 05/31/18 Lupillo Davenport MD [address] [place] [address] Referring Physician Radiation Oncology 05/31/18 Shawnee Mckinney MD [address] [facility] [address] [place] [address] Referring Physician Urology 06/03/18 Chicho Clayton MD 49[address] [facility] [address] [place] [address] Medical Oncologist/Hematologis t Medical Oncology 06/07/18 Newton Weeks MD [address] [facility] [address] [place] [address] Referring Physician Radiation Oncology 06/07/18 Maria Guadalupe Palacios, RN Registered Nurse 06/10/18 Lupillo Davenport MD [address] [place] [address] Referring Physician Radiation Oncology 06/16/18 Itz Iyer MD [address] [place] [address] Consulting Physician Urology 06/17/18 06/17/18 Itz Iyer MD [address] [place] [address] Consulting Physician Urology 06/18/18 06/18/18 Itz Iyer MD [address] [place] [address] Consulting Physician Urology 06/18/18 06/18/18 Itz Iyer MD [address] [place] [address] Consulting Physician Urology 06/22/18 06/22/18 Itz Iyer MD [address] [place] [address] Consulting Physician Urology 07/01/18 07/01/18 Itz Iyer MD [address] [place] [address] Consulting Physician Urology 07/06/18 07/06/18 Danis Meza NP [address] [place] [address] Nurse Practitioner Urology 10/06/22 Antonette Owens NP [address] [place] [address] Nurse Practitioner Cardiovascular Disease 10/06/22 Aniceto Foley MD [address] [place] [address] Surgeon Vascular Surgery 10/31/22 documented as of this encounter
--- OUTSIDE RECORDS SUMMARY | 2025-07-25 21:42 | XMS_ITS | Encounter Summary ---
Author Organization [facility] Healthcare Address [address] [place] [address] Care Team Providers Care Motorcyles Final Inspector Name Role Phone Fuentes Orellana MD Primary Care Provider + [phone] Itz Iyer MD Unavailable [phone] Lupillo Davenport MD Unavailable [phone] Lupillo Davenport MD Unavailable [phone] Shawnee Mckinney MD Unavailable [phone] Chicho Clayton MD Unavailable Newton Weeks MD Unavailable [phone] Maria Guadalupe Palacios RN Unavailable Unava ilable Lupillo Davenport MD Unavailable [phone] Itz Iyer MD Unavailable [phone] Itz Iyer MD Unavailable +[phone] Itz Iyer MD Unavailable +[phone] Itz Iyer MD Unavailable +[phone] Itz Iyer MD Unavailable [phone] Itz Iyer MD Unavailable [phone] Danis Meza NP Unavailable [phone] Antonette Owens NP Unavailable Aniceto Foley MD Unavailable Encounter Details Date Type Department Care Team (Late st Contact Info) Description 03/30/2018 Orders Only [facility] Information Management [address] [place] [address] Scanning, Provider Social History Tobacco Use Types Packs/Day Years Used Date Smoking Tobacco: Never Smokeless Tobacco: Never Alcohol Use Standard Drinks/Week Comments Yes 0 (1 standard drink = 0.6 oz pur e alcohol) Sex and Gender Information Value Date Recorded Sex Assigned at Not on file Legal Sex Male 12:32 AM CARD TAPE CONVERTER OPERATOR Gender Identity Not on file Sexual Orientation Choose not to disclose 2018 8:58 AM CDT documented as of this encounter Plan of Treatment Upcoming Encounters Date Type Department Care Team (Latest Contact Info) Description 08/30/2025 7:30 AM CARD TAPE CONVERTER OPERATOR Hospital Encounter [facility] Operating Room [address] [place] [phone] [place] [address] [place] [address] 08/30/2025 7:30 AM CARD TAPE CONVERTER OPERATOR - 08/30/2025 10:30 AM CARD TAPE CONVERTER OPERATOR Surgery [facility] Operating Room [address] [place] [phone] [place] [address] [place] [address] Revision Artificial Urinary Sphincter Scheduled Procedures Name Priority Associated Diagnoses Date/Ti me REVISION ARTIFICIAL URINARY SPHINCTER Retention of urine 08/30/2025 7:30 AM CARD TAPE CONVERTER OPERATOR documented as of this encounter Procedures Procedure Name Priority Date/Time Associated Diagnosis Comments SCAN - LABS 03/30/2018 documented in this encounter Results * SCAN - LABS (03/30/2018) us Provider Scanning Final Result documented in this encounter Visit Diagnoses Not on filedocumented in this encounter Care Teams Motorcyles Final Inspector Relationship Specialty Start Date End Date Fuentes Orellana MD PCP - General 11/28/16 Itz Iyer MD [address] [place] [address] Consulting Physician Urology 05/31/18 Lupillo Davenport MD [address] [place] [address] Referring Physician Radiation Oncology 05/31/18 Lupillo Davenport MD [address] [place] [address] Referring Physician Radiation Oncology 05/31/18 Shawnee Mckinney MD 4960 [facility] [address] [place] [address] Referring Physician Urology 06/03/18 Chicho Clayton MD 4921 [facility] [address] [place] [address] Medical Oncologist/Hematologis t Medical Oncology 06/07/18 Newton Weeks MD 49[address] [facility] [address] [place] [address] Referring Physician Radiation Oncology 06/07/18 Maria Guadalupe Palacios, RN Registered Nurse 06/10/18 Lupillo Davenport MD [address] [place] [address] Referring Physician Radiation Oncology 06/16/18 Itz Ieyr MD [address] [place] [address] Consulting Physician Urology 06/17/18 06/17/18 Itz Iyer MD [address] [place] [address] Consulting Physician Urology 06/18/18 06/18/18 Itz Iyer MD [address] [place] [address] Consulting Physician Urology 06/18/18 06/18/18 Itz Iyer MD [address] [place] [address] Consulting Physician Urology 06/22/18 06/22/18 Itz Iyer MD [address] [place] [address] Consulting Physician Urology 07/01/18 07/01/18 Itz Iyer MD [address] [place] [address] Consulting Physician Urology 07/06/18 07/06/18 Danis Meza NP [address] [place] [address] Nurse Practitioner Urology 10/06/22 Antonette Owens NP [address] [place] [address] Nurse Practitioner Cardiovascular Disease 10/06/22 Aniceto Foley MD [address] [place] [address] Surgeon Vascular Surgery 10/31/22 documented as of this encounter
--- OUTSIDE RECORDS SUMMARY | 2025-07-25 21:42 | XMS_ITS | Encounter Summary ---
Author Organization [facility] Address [address] [place] [address] Phone Care Team Providers Care Destination Sign Repairer Name Role Phone Fuentes Orellana MD Primary Care Provider Brent Dickinson DO Unavailable [phone] Faviola Jiménez REGISTERED RADIOGRAPHER, SALVAGE WINDER Unavailable Shawnee Mckinney MD Unavailable Chicho Clayton MD Unavailable Lai Lambert REGISTERED RADIOGRAPHER, SALVAGE WINDER Unavailable [phone] Kami Meneses MD Unavailable [phone] Anette Bond MD Unavailable [phone] Kay Gordon REGISTERED RADIOGRAPHER, SALVAGE WINDER Unavailable Kami Meneses MD Unavailable [phone] Kami Meneses MD Unavailable Kami Meneses MD Unavailable [phone] Encounter Details Date Type Department Care Team (Late st Contact Info) Description 08/22/2024 Telephone [facility] [address] [place] [address] Kami Meneses MD #[address] [place] [address] Social History Tobacco Use Types Packs/Day Years [...] 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 UTER TYPESETTER KEYLINER * Telephone Encounter - Elidia Dill - 08/29/2024 8:20 AM CST Please see Dr. Otto message. UTER TYPESETTER KEYLINER * Telephone Encounter - Kami Meneses MD [...] needs to be done at [facility] by co. He will need a urine culture 14 days prior to surgery. Hibiclens shower the night before morning of surgery, vancomycin and gentamicin for antibiotics UTER TYPESETTER KEYLINER UTER TYPESETTER KEYLINER documented in this encounter Plan of Treatment Not on file documented as of this encounter Visit Diagnoses Not on filedocumented in this encounter Care Teams Destination Sign Repairer Relationship Specialty Start Date End Date Fuentes Orellana MD [address] [place] [address] PCP - General Family Medicine 07/06/15 Brent Dickinson DO [address] [facility] [place] [address] Gastroenterology 06/27/16 Faviola Jiménez APRN, SALVAGE WINDER [address] [facility] [place] [address] Nurse Practitioner Advanced Practice Nurse 07/22/16 Shawnee Mckinney MD 4960 [facility] [address]242 [place] [address] Urologist Urology 06/07/19 Chicho Clayton MD 4921 [facility] [address] [place] [address] Oncology 06/13/19 Lai Lambert APRN, SALVAGE WINDER [address] [place] [address] Nurse Practitioner Advanced Practice Nurse 02/10/23 Kami Meneses MD [address] [address] Consulting Physician Urology 06/16/23 Anette Bond MD #[address] [place] [address] Consulting Physician Gastroenterology 12/25/22 Kay Gordon APRN, SALVAGE WINDER [address] [place] [address] Nurse Practitioner Advanced Practice Nurse 06/16/24 Kami Meneses MD [address] [address] Consulting Physician Urology 08/19/24 Kami Meneses MD [address] [address] Consulting Physician Urology 01/06/25 Kami Meneses MD [address] [address] Consulting Physician Urology 03/08/25 documented as of this encounter
--- OUTSIDE RECORDS SUMMARY | 2025-07-25 21:42 | XMS_ITS | Clinical Summary ---
Author Organization [facility] Address [address] [place] [address] Care Team Providers Care Editor Index Name Role Phone Fuentes Orellana MD Primary Care Provider [phone] Allergies No known active allergies Medications amLODIPine [...] age to complete this topic Insurance MEDICARE [facility] Care Teams Editor Index Relationship Specialty Start Date End Date Fuentes Orellana MD [address] [place] [address] PCP - General FAMILY PRACTICE 11/29/22
--- OUTSIDE RECORDS SUMMARY | 2025-07-25 21:42 | XMS_ITS | Clinical Summary ---
Author Organization [facility] Address [address] [place] [address] Phone Care Team Providers Care Machine Cloth Measurer Name Role Phone Fuentes Orellana MD Primary Care Provider [phone] Allergies No known active allergies Medications pantoprazole [...] 2025 06/15/2018 Medical Devices Implanted Type Area Easement Man Device Identifier Shelf Expiration Date Model / Serial / Lot Ams 800 Urinary Control System(Penile Implant) Description:MRI conditional for 3T or less -danisha 01/04/19 Insurance MEDICARE PART A AND B [facility] [id number] Care Teams Machine Cloth Measurer Relationship Specialty Start Date End Date Fuentes Orellana MD [address] [place] [address] PCP - General Family Practice 01/04/19
--- OUTSIDE RECORDS SUMMARY | 2025-07-25 21:42 | XMS_ITS | Encounter Summary ---
Author Organization [facility] Address [address] [place] [address] Phone Care Team Providers Care Manager Of International Name Role Phone Fuentes Orellana MD Primary Care Provider Brent Dickisnon DO Unavailable [phone] Faviola Jiménez ORAL SURGERY PHYSICIAN, SASH MAKER Unavailable Shawnee Mckinney MD Unavailable Chicho Clayton MD Unavailable Lai Lambert ORAL SURGERY PHYSICIAN, SASH MAKER Unavailable [phone] Kami Meneses MD Unavailable [phone] Anette Bond MD Unavailable [phone] Kay Gordon ORAL SURGERY PHYSICIAN, SASH MAKER Unavailable Kami Meneses MD Unavailable [phone] Kami Meneses MD Unavailable [phone] Kami Meneses MD Unavailable [phone] Reason for Visit * Reason Comments Medication Refill Encounter Details Date Type Department Care Team (Late st Contact Info) Description 10/15/2021 Refill [facility] - Gastroenterology [facility] [address] [place] [address] Ingrid Mccloud Ashley, PAC [address] [place] [address] Medication Refill Social History Tobacco Use Types [...] 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 BUCKLER documented in this encounter Plan of Treatment Not on file documented as of this encounter Visit Diagnoses Not on filedocumented in this encounter Care Teams Manager Of International Relationship Specialty Start Date End Date Fuentes Orellana MD [address] [address] PCP - General Family Medicine 07/06/15 Brent Dickinson DO [address] [address] Gastroenterology 06/27/16 Faviola Jiménez, ORAL SURGERY PHYSICIAN, SASH MAKER [address] [address] Nurse Practitioner Advanced Practice Nurse 07/22/16 Shawnee Mckinney MD [address] [facility] [address] [place] [address] Urologist Urology 06/07/19 Chicho Clayton MD [address] [facility] [address] [place] [address] Oncology 06/13/19 Lai Lambert APRN, SASH MAKER [address] [place] [address] Nurse Practitioner Advanced Practice Nurse 02/10/23 Kami Meneses MD #[address] [address] Consulting Physician Urology 06/16/23 Anette Bond MD [address] [place] [address] Consulting Physician Gastroenterology 12/25/22 Kay Gordon APRN, SASH MAKER [address] [place] [address] Nurse Practitioner Advanced Practice Nurse 06/16/24 Kami Meneses MD #[address] [address] Consulting Physician Urology 08/19/24 Kami [facility]es MD [facility] [address] [address] Consulting Physician Urology 01/06/25 Kami Meneses MD [address] [address] Consulting Physician Urology 03/08/25 documented as of this encounter
--- OUTSIDE RECORDS SUMMARY | 2025-07-25 21:42 | XMS_ITS | Encounter Summary ---
Author Organization [facility] Address [address] [facility] [address] [place] [address] Care Team Providers Care Braille And Talking Books Clerk Name Role Phone Fuentes Orellana MD Primary Care Provider + [phone] Fuentes Orellana MD Primary Care Provider + [phone] Itz Iyer MD Unavailable [phone] Lupillo Davenport MD Unavailable [phone] Lupillo Davenport MD Unavailable [phone] Shawnee Mckinney MD Unavailable [phone] Chicho Clayton MD Unavailable Newton Weeks MD Unavailable [phone] Maria Guadalupe Palacios RN Unavailable Unava ilable Lupillo Davenport MD Unavailable [phone] Itz Iyer MD Unavailable [phone] Itz Iyer MD Unavailable [phone] Itz Iyer MD Unavailable [phone] Itz Iyer MD Unavailable [phone] Itz Iyer MD Unavailable [phone] Itz Iyer MD Unavailable [phone] Danis Meza LABORER/GRADE CHECK Unavailable [phone] Antonette Owens MARÍA Unavailable Aniceto Foley MD Unavailable [phone] Encounter Details Date Type Department Care Team (Late st Contact Info) Description 11/18/2016 Orders Only [facility] Provider, MD Katie [address] [place] [address] Social History Tobacco Use Types Packs/Day Years Used Date Smoking Tobacco: Never Assessed Sex and Gender Information Value Date Recorded Sex Assigned at Not on file Legal Sex Male 12:32 AM MANAGER OFFICE SERVICES Gender Identity Not on file Sexual Orientation Choose not to disclose 2018 8:58 AM CDT documented as of this encounter Plan of Treatment Upcoming Encounters Date Type Department Care Team (Latest Contact Info) Description 08/30/2025 7:30 AM MANAGER OFFICE SERVICES Hospital Encounter [facility] Operating Room [address] [place] [phone] [place] [address] [place] [address] 08/30/2025 7:30 AM MANAGER OFFICE SERVICES - 08/30/2025 10:30 AM MANAGER OFFICE SERVICES Surgery [facility] Operating Room [address] [place] [phone] [place] [address] [place] [address] Revision Artificial Urinary Sphincter Scheduled Procedures Name Priority Associated Diagnoses Date/Ti me REVISION ARTIFICIAL URINARY SPHINCTER Retention of urine 08/30/2025 7:30 AM MANAGER OFFICE SERVICES documented as of this encounter Procedures Procedure Name Priority Date/Time Associated Diagnosis Comments CARDIOLOGY REPORT 11/18/2016 documented in this encounter Results * CARDIOLOGY REPORT (11/18/2016) Anatomical Region Laterality Modality Other Narrative 11/18/2016 Ordered by an unspecified provider. Historical Provider [facility] Final Result documented in this encounter Visit Diagnoses Not on filedocumented in this encounter Care Teams Braille And Talking Books Clerk Relationship Specialty Start Date End Date Fuentes Orellana MD PCP - General 11/28/16 Fuentes Orellana MD PCP - General 07/14/07 11/27/16 Itz Iyer MD [address] [id number] Consulting Physician Urology 05/31/18 Lupillo Davenport MD [address] [place] [address] Referring Physician Radiation Oncology 05/31/18 Lupillo Davenport MD [address] [place] [address] Referring Physician Radiation Oncology 05/31/18 Shawnee Mckinney MD [address] [facility] [address] [place] [address] Referring Physician Urology 06/03/18 Chicho Clayton MD [address] [facility] [address] [place] [address] Medical Oncologist/Hematologis t Medical Oncology 06/07/18 Newton Weeks MD [address] [facility] [address] [place] [address] Referring Physician Radiation Oncology 06/07/18 Maria Guadalupe Palacios, RN Registered Nurse 06/10/18 Lupillo Davenport MD [address] [place] [address] [place] [address] Referring Physician Radiation Oncology 06/16/18 Itz Iyer MD [address] [place] [address] Consulting Physician Urology 06/17/18 06/17/18 Itz Iyer MD [address] [place] [address] Consulting Physician Urology 06/18/18 06/18/18 Itz Iyer MD [address] [place] [address] Consulting Physician Urology 06/18/18 06/18/18 Itz Iyer MD [address] [place] [address] Consulting Physician Urology 06/22/18 06/22/18 Itz Iyer MD [address] [place] [address] Consulting Physician Urology 07/01/18 07/01/18 Itz Iyer MD [address] [address] Consulting Physician Urology 07/06/18 07/06/18 [place] [address] [place] [address] [place] [address] Nurse Practitioner Urology 10/06/22 Antonette Owens NP [address] [facility] [address] [place] [address] Nurse Practitioner Cardiovascular Disease 10/06/22 Aniceto Foley MD [address] [place] [address] Surgeon Vascular Surgery 10/31/22 documented as of this encounter
--- OUTSIDE RECORDS SUMMARY | 2025-07-25 21:42 | XMS_ITS | Encounter Summary ---
Author Organization [facility] Address [address] [place] [address] Care Team Providers Care Assessment Technician Name Role Phone Fuentes Orellana MD Primary Care Provider + [phone] Itz Iyer MD Unavailable [phone] Shawnee Mckinney MD Unavailable [phone] Chicho Clayton MD Unavailable Maria Guadalupe Palacios RN Unavailable Unava ilable Lupillo Davenport MD Unavailable [phone] Danis Meza VISUAL LEAD Unavailable [phone] Antonette Owens NP Unavailable Aniceto Foley MD Unavailable [phone] Encounter Details Date Type Department Care Team (Late st Contact Info) Description 07/24/2024 Orders Only [facility] Information Management [address] [place] [address] Scanning, Provider Social History Tobacco Use Types [...] on file Legal Sex Male 12:32 AM CLIENT RETENTION SPECIALIST Gender Identity Not on file Sexual Orientation Choose not to disclose 2018 8:58 AM CDT Occupation Industry Job 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 Date retired Not on file Not on file Not on file documented as of this encounter Plan of Treatment Upcoming Encounters Date Type Department Care Team (Latest Contact Info) Description 08/30/2025 7:30 AM CLIENT RETENTION SPECIALIST Hospital Encounter [facility] Operating Room [address] [place] [phone] [place] [address] [place] [address] 08/30/2025 7:30 AM CLIENT RETENTION SPECIALIST - 08/30/2025 10:30 AM CLIENT RETENTION SPECIALIST Surgery [facility] Operating Room [address] [place] [phone] [place] [address] [place] [address] Revision Artificial Urinary Sphincter Scheduled Procedures Name Priority Associated Diagnoses Date/Ti me REVISION ARTIFICIAL URINARY SPHINCTER Retention of urine 08/30/2025 7:30 AM CLIENT RETENTION SPECIALIST documented as of this encounter Procedures Procedure Name Priority Date/Time Associated Diagnosis Comments SCAN - LABS 07/24/2024 documented in this encounter Results * SCAN - LABS (07/24/2024) us Provider Scanning Final Result documented in this encounter Visit Diagnoses Not on filedocumented in this encounter Care Teams Assessment Technician Relationship Specialty Start Date End Date Fuentes Orellana MD PCP - General 11/28/16 Itz Iyer MD [address] [place] [address] Consulting Physician Urology 05/31/18 Shawnee Mckinney MD [address] [facility] [address] [place] [address] Referring Physician Urology 06/03/18 Chicho Clayton MD [address] [place] [address] Medical Oncologist/Hematologis t Medical Oncology 06/07/18 Maria Guadalupe Palacios, RN Registered Nurse 06/10/18 Lupillo Davenport MD Referring Physician Radiation Oncology 06/16/18 Danis Meza NP [address] [facility] [address] [place] [address] Nurse Practitioner Urology 10/06/22 Antonette Owens NP [address] [facility] [address] [place] [address] Nurse Practitioner Cardiovascular Disease 10/06/22 Aniceto Foley MD [address] [place] [address] Surgeon Vascular Surgery 10/31/22 documented as of this encounter
--- OUTSIDE RECORDS SUMMARY | 2025-07-25 21:42 | XMS_ITS | Clinical Summary ---
Author Organization [facility] Address [address] [facility] [address] [place] [address] Phone Care Team Providers Care Control Director Name Role Phone Fuentes Orellana MD Primary Care Provider Brent Dickinson DO Unavailable [phone] Faviola Jiménez BUYING INTERN, BIOSOLIDS MANAGEMENT TECHNICIAN Unavailable Shawnee Mckinney MD Unavailable Chicho Clayton MD Unavailable Lai Lambert BUYING INTERN, BIOSOLIDS MANAGEMENT TECHNICIAN Unavailable [phone] Kami Meneses MD Unavailable [phone] Anette Bond MD Unavailable [phone] Kay Gordon APRN, BIOSOLIDS MANAGEMENT TECHNICIAN Unavailable Kami Meneses MD Unavailable [phone] Kami Meneses MD Unavailable [phone] Kami Meneses MD Unavailable [phone] Allergies Active Allergy Reactions Criticality Noted [...] Description 04/28/2025 11:15 AM CDT Office Visit [facility] [address] [place] [address] Kami Meneses MD UTI symptoms [...] 36.4 C (97.6 F) 08/10/2024 9:53 AM MACHINE SETTER SUPERVISOR Respiratory Rate 16 04/28/2025 11:05 AM CDT Oxygen Saturation 98% 04/28/2025 11:05 AM CDT Inhaled Oxygen Concentration - - Weight 74.4 kg (164 lb) 03/10/2025 2:24 PM CDT Height 162.6 cm (5' 4) 04/28/2025 11:05 AM CDT Body Mass Index 28.15 03/10/2025 2:24 PM CDT Plan of Treatment Health Maintenance Due Date Last Done Comments Hepatitis C Virus (HCV) Screening 1950 Varicella Immunization (1 of 2 - 13+ 2-dose series) 1962 Zoster Immunization (1 of 2) 1968 Cologuard [...] Narrative FuentesElidia - 04/28/2025 11:15 AM CDT Elidia Dill 04/28/2025 10:28 PM POCT Bladder Scan collected per standing order of Dr. Meneses on 04/28/2025 PVR= 18 ML [facility] [place] - [facility] Final Result * COLONOSCOPY (05/24/2020) Brent Dickinson DO PROCEDURE/MINOR SURGICAL ORDERA BLES Final Result from Last 3 Months or Most Recently Relevant to Health Maintenance Insurance MEDICARE [facility] Care Teams Control Director Relationship Specialty Start Date End Date Fuentes Orellana MD [address] [place] [address] PCP - General Family Medicine 07/06/15 Brent Dickinson DO [address] [place] [address] Gastroenterology 06/27/16 Faviola Jiménez APRN, BIOSOLIDS MANAGEMENT TECHNICIAN [address] [place] [address] Nurse Practitioner Advanced Practice Nurse 07/22/16 Shawnee Mckinney MD [address] [facility] [address] [place] [address] Urologist Urology 06/07/19 Chicho Clayton MD [address] [facility] [address] [place] [address] Oncology 06/13/19 Lai Lambert APRN, BIOSOLIDS MANAGEMENT TECHNICIAN [address] [place] [address] Nurse Practitioner Advanced Practice Nurse 02/10/23 Kami Meneses MD #[address] [address] Consulting Physician Urology 06/16/23 Anette Bond MD [address] [place] [address] Consulting Physician Gastroenterology 12/25/22 Kay Gordon APRN, BIOSOLIDS MANAGEMENT TECHNICIAN [address] [place] [address] Nurse Practitioner Advanced Practice Nurse 06/16/24 Kami Meneses MD [address]2 [facility] [address] [address] Consulting Physician Urology 08/19/24 Kami Meneses MD #[address] [address] Consulting Physician Urology 01/06/25 Kami Meneses MD [address] [address] Consulting Physician Urology 03/08/25
[2025-07-25 21:43] VITALS: BP 167/47; PULSE 83; RESP 14; TEMP 36.5; O2SAT 100
--- NOTE | 2025-07-25 23:31 | ED.MALEGU ---
HPI - Male Genitourinary General Chief complaint: Urogenital-Male Stated complaint: urinary retention bladder implant Time Seen by Provider: 07/25/25 22:53 History of Present Illness HPI Narrative: 74-year-old male with history of artificial urinary sphincter placement this year presenting to the emergency depart with malfunction of the device. Patient states for last week he has been not able to full urinate and been using his device as instructed with initially having 1-2 seconds stream followed by dribbling with increase in pain is pelvis. Today he had very minimal urination despite pressing his device button and feels like it is malfunctioning. He was not able urinate significant throughout the day and only got a little bit out at home. Having pain in his pelvis that he states usually goes away when he is able to urinate. No penile trauma or scrotal trauma. No fever, chills. Was otherwise in his normal state of health. Sees [facility] for management of this device and states he has seen Dr. Mahoney in clinic to discuss revision surgery. Related Data Home Medications ?Medication ?Instructions ?Recorded ?Confirmed ?Last Taken ?Type nitroglycerin 0.3 mg sublingual 0.3 mg sublingual PRN PRN Chest 12/05/21 07/03/25 Unknown History tablet Pain ticagrelor 60 mg tablet (Brilinta) 60 mg PO BID 12/05/21 07/03/25 03/08/25 History aspirin 81 mg tablet,delayed 81 mg PO DAILY 12/06/21 07/03/25 03/11/25 History release (Adult Aspirin Regimen) chlorthalidone 25 mg tablet 25 mg PO DAILY 04/16/23 07/03/25 03/14/25 History rosuvastatin 40 mg tablet 40 mg PO DAILY 10/13/23 07/03/25 03/14/25 History telmisartan 80 mg tablet 80 mg PO DAILY 06/08/24 07/03/25 03/14/25 History amlodipine 5 mg tablet 5 mg PO DAILY 09/29/24 07/03/25 03/14/25 History metoprolol tartrate 25 mg tablet 25 mg PO Q12H 12/16/24 07/03/25 03/14/25 History gabapentin 100 mg capsule mg PO TID 04/19/25 07/03/25 Unknown History Allergies Allergy/AdvReac Type Severity Reaction Status Date / Time dapagliflozin (From [facility]) Allergy Severe Hallucinati Verified 07/26/25 03:31 ng metformin AdvReac Severe Diarrhea Verified 07/26/25 03:31 semaglutide (From Ozempic) AdvReac Intermediate Confusion Verified 07/26/25 03:31 Review of Systems Review of Systems: As reviewed above in HPI All systems reviewed & are unremarkable except as noted in HPI and below PMFSH Past Medical History Medical History Benzodiazepine withdrawal with delirium Flank pain Bilateral lower extremity edema Hospital discharge follow-up Hard of hearing reads lips Hypertension Anxiety SOB (shortness of breath) Hyponatremia Cerebrovascular disease Diabetic polyneuropathy Lumbar spine pain BMI 27.0-27.9,adult Chronic pain Spasmodic bladder Trochanteric bursitis, left hip Trochanteric bursitis, right hip Heart disease History of prostate cancer Arthritis History of blood clots Carpal tunnel syndrome on both sides Overweight BMI 26.0-26.9,adult Microscopic colitis Dysphagia BMI 26.0-26.9,adult BMI between 19-24,adult Right shoulder pain Left shoulder pain BMI 25.0-25.9,adult 1st MTP arthritis Depression High cholesterol Shortness of breath Wears glasses Light headedness BMI 25.0-25.9,adult GERD (gastroesophageal reflux disease) HLD (hyperlipidemia) HTN (hypertension) Collagenous colitis Adenomatous colon polyp Tendinitis of both rotator cuffs Groin discomfort CAD (coronary artery disease) Carotid stenosis, asymptomatic h/o intracranial cerebral stenosis, evaluated at [facility] 05/2019, thought not to be symptomatic cont med tx. Glaucoma Personal history of DVT (deep vein thrombosis) Stenosis of infrarenal abdominal aorta due to arteriosclerosis Says his aorta is mildly enlarged Gout (~08/2019) Prostate cancer Anemia Type 2 diabetes mellitus without complications Surgical History Surgical History H/O umbilical hernia repair 01/03/25; Dr Nunez; 6.[address] hernia patch Status post urinary system surgery AMS 800TM device placed 11/09/24 Dr Meneses (urologist [place] - same urology group as at [place]) Hx of endarterectomy H/O carotid endarterectomy (~10/2022) History of rotator cuff surgery History of angioplasty History of cataract surgery History of colonoscopy 2020 S/P arthroscopic surgery of left knee H/O rectal polypectomy H/O cystoscopy History of prostatectomy Had prostate cancer, status post prostatectomy and later radiation therapy. Has an implanted device to help with urinary incontinence. H/O cardiac catheterization H/O heart artery stent Family History Family History Father , of lung cancer age 83 Hypertension Lung cancer Sibling Hypertension Mother Family history of malignant neoplasm of breast in first degree relative Breast cancer of breast cancer age 37 Sibling No problems noted. Other Diabetes mellitus Family history of cardiovascular disease Family history of elevated blood lipids Family history of malignant neoplasm Social History Social History Social History: The patient has 2 sons and is . He does not have a durable power insurance attorney. Wishes to be a full code. 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 Uses cane/assist device when out but not always at home. Smoking packs per day: 1 Smoking cigarettes per day: 20.0 Years smoked: 15 Smoking pack-years: 15.00 Smoking status: Former smoker Tobacco type: cigarettes Second hand tobacco smoke exposure: No Smoking end date: 08/31/82 Alcohol intake: unknown Drinks per week: 14 Alcohol use details: 2-3 per day beer Substance use: never Substance use type: does not use Other substance usage details: no beer in over a week; no marijuana in 9 months Do You Feel Safe in your Home?: Yes Lack of Transportation: No Lack of Food: Never True Current Housing: I Have Housing Concerned About Future Housing: No Difficulty Paying Gas/Electric Bills: No Difficulty Paying for Meds: No Currently Unemployed: No Education: Trade/Vocational Certificate Difficulty w/ Childcare or Family Care: No Living arrangements: alone Occupation/Education: retired Additional occupation/education comments: 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 Gender identity (if verbalized by the patient): Male Spiritual care concerns: No Agree to blood products: Yes Exam Narrative: GENERAL: [Well-appearing, well-nourished, and in no acute distress.] HEAD: [Normocephalic, atraumatic.] EYES: [PERRLA and EOMI.] ENT: Nares clear, no rhinorrhea or epistaxis. Mucous membranes moist. NECK: Supple. CHEST: [Clear to auscultation. No respiratory distress.] HEART: [Regular rate and rhythm]. No murmur heard. [Normal peripheral pulses.] ABDOMEN: Suprapubic fullness and tenderness to palpation but no significant distension : Normal penis, scrotum with device implant in the right hemiscrotum palpable without any overlying skin changes or deformity. No testicular pain. Device seemingly not functioning with pressing the button through the skin wall. EXTREMITIES: Normal range of motion. [No edema.] SKIN: Warm, dry, no rash. NEURO: [No focal deficits]. Alert and oriented [x3.] PSYCH: [Normal mood and affect.] Course Vital Signs Vital signs: Vital Signs Temperature 36.5 C 07/25/25 21:43 Pulse Rate 83 07/25/25 21:43 Respiratory Rate 14 07/25/25 21:43 Blood Pressure 167/47 H 07/25/25 21:43 Pulse Oximetry 100 07/25/25 21:43 Oxygen Delivery Room Air 07/25/25 21:43 Temperature 37.4 C 07/26/25 03:34 Pulse Rate 120 H 07/26/25 03:34 Respiratory Rate 12 07/26/25 03:34 Blood Pressure 153/51 H 07/26/25 03:34 Pulse Oximetry 97 07/26/25 03:34 Oxygen Delivery Room Air 07/25/25 21:43 MDM - Male Genitourinary MDM Narrative Medical decision making narrative: 74-year-old male with history of artificial urinary sphincter placement this year presenting to the emergency depart with malfunction of the device. Patient states for last week he has been not able to full urinate and been using his device as instructed with initially having 1-2 seconds stream followed by dribbling with increase in pain is pelvis. Today he had very minimal urination despite pressing his device button and feels like it is malfunctioning. He was not able urinate significant throughout the day and only got a little bit out at home. Having pain in his pelvis that he states usually goes away when he is able to urinate. No penile trauma or scrotal trauma. No fever, chills. Was otherwise in his normal state of health. Sees [facility] for management of this device and states he has seen Dr. Mahoney in clinic to discuss revision surgery. scrotum with device implant in the right hemiscrotum palpable without any overlying skin changes or deformity. No testicular pain. Device seemingly not functioning with pressing the button through the skin wall. Given the artificial sphincter he is not able to be catheterized and we will call Urology for recommendations. Spoke to Dr. Bernal over the phone who will come see the patient at bedside for interventions if needed. Laboratory studies and bladder scan obtained showing to 260 cc retained. Patient given [place] for analgesia. Urology was able to manipulate the device at bedside turn off and recommended admission to hospitalist for IV antibiotics and reassessment tomorrow by Urology team for potential reactivation verses further interventions as warranted. Patient given additional fluid resuscitation, started on ciprofloxacin for UTI, laboratory studies obtained. Given a nightly dose of his metoprolol. Safe for admission. Spoke to the hospitalist Dr. Louise who accepted the patient to the hospital. Medical Records Attestation: I reviewed the patient's medical records. Lab Data Attestation: I reviewed the patient's lab results. 07/25/25 23:37 07/25/25 23:37 Labs: Lab Results 07/25/25 07/25/25 Range/Units 23:37 23:47 WBC 11.7 H (4.5-10.0) K/mm3 RBC 3.57 L (4.6-6.20) M/mm3 Hgb 11.1 L (14.0-18.0) g/dL Hct 33.5 L (42.0-52.0) % MCV 93.8 (80-100) fl MCH 31.1 (26-34) pg MCHC 33.1 (32-36) g/dl RDW 14.4 (11.5-14.5) % Plt Count 165 (150-375) k/mm3 MPV 10.3 (7.4-10.4) fl Immature Gran % (Auto) 0.6 H (0-0.5) % Neut % (Auto) 77.4 H (45.5-73.1) % Lymph % (Auto) 11.8 L (18.3-44.2) % [place] % (Auto) 8.7 H (2.6-8.5) % Eos % (Auto) 1.2 (0-4.4) % Baso % (Auto) 0.3 (0.2-1.2) % Lymph # (Auto) 1.38 (0.9-3.2) K/mm3 [place] # (Auto) 1.0 H (0.1-0.6) K/mm3 Eos # (Auto) 0.1 (0-0.3) K/mm3 Baso # (Auto) 0.0 (0.0-0.1) K/mm3 Abs Immat Gran (auto) 0.07 H (0.00-0.031) K/mm3 Absolute Neuts (auto) 9.0 H (1.3-6.7) K/mm3 Absolute Nucleated RBC 0.000 (0.0-0.012) K/mm3 Nucleated RBC % 0.0 (0.0-0.2) % PT 12.7 (11.1-14.7) Seconds INR 1.0 APTT 26.6 (22.3-36.8) Seconds Sodium 136 L (137-145) mmol/L Potassium 4.2 (3.4-5.0) mmol/L Chloride 105 (98-107) mmol/L Carbon Dioxide 25 (22-30) mmol/L Anion Gap 6 (4-12) mmol/L BUN 29 H (9-20) mg/dL Creatinine 1.47 H (0.7-1.3) mg/dL Estim Creat Clear Calc 38 ml/min Estimated GFR 47 L (59 - ) Glucose 125 H (65-110) mg/dL Calcium 10.9 H (8.4-10.2) mg/dL Urine Color Yellow (Yellow) Urine Appearance Cloudy H (Clear) Urine pH 5.5 (5.0-9.0) Ur Specific [place] 1.015 (1.001-1.035) Urine Protein 2+ H (Negative) mg/dL Urine Glucose (UA) Trace H (Negative) mg/dL Urine Ketones Negative (Negative) mg/dL Ur Blood (Man) 1+ H (Negative) Urine Nitrate Negative (Negative) Urine Bilirubin Negative (Negative) Urine Urobilinogen 0.2 (<2.0) mg/dL Leukocyte Esterase Rfl 2+ H (Negative) CYNTHIA/UL Urine RBC 0-2 (0-2) /hpf Urine WBC >100 H (0-3) /hpf Ur Squamous Epith Cells None seen (Few) /hpf Urine Bacteria 4+ H /hpf Urine Casts 0-2 Blood Type A Negative Antibody Screen Negative Discharge Plan Discharge Clinical Impression: Acute urinary retention, Status post implantation of artificial urinary sphincter, Malfunction of device, Acute urinary tract infection Patient Disposition: Still a Patient Condition: Stable
[2025-07-25] MEDS: HYDROcodone/acetaminophen (*CRX) 5-325 MG TABLET 1 TAB PO (23:37)
[2025-07-25 23:40] VITALS: O2SAT 98
[2025-07-25 23:45] LABS: Hematocrit 33.5 % (42.0-52.0); Hemoglobin 11.1 g/dL (14.0-18.0); Immature Granulocyte Percent A 0.6 % (0-0.5); Lymphocytes Absolute Auto 1.38 K/mm3 (0.9-3.2); Mean Corpuscular HGB Conc 33.1 g/dl (32-36); Mean Corpuscular Hemoglobin 31.1 pg (26-34); Mean Corpuscular Volume 93.8 fl (80-100); Nucleated Red Blood Cells Absolute Auto 0.000 K/mm3 (0.0-0.012); Nucleated Red Blood Cells Perc 0.0 % (0.0-0.2); Platelet Count Result 165 k/mm3 (150-375); Red Blood Count 3.57 M/mm3 (4.6-6.20); White Blood Count 11.7 K/mm3 (4.5-10.0)
[2025-07-25 23:48] VITALS: BP 197/56; PULSE 111; RESP 19; O2SAT 99
[2025-07-25 23:58] LABS: INR 1.0; Prothrombin Time 12.7 Seconds (11.1-14.7)
[2025-07-25 23:59] LABS: Partial Thromboplastin Time 26.6 Seconds (22.3-36.8)
[2025-07-25 23:59] LABS: Add Urine Microscopic? YES; Appearance Urine Cloudy (Clear); Glucose Urine UA Trace mg/dL (Negative); Leukocyte Esterase Ur 2+ LEU/UL (Negative); Nitrate Urine Negative (Negative); Non Pathogenic Casts 0-2; Specific Grav Ur 1.015 (1.001-1.035)
[2025-07-26] VITALS (15 sets, daily range): BP systolic 106–192; BP diastolic 50–100; PULSE 72–126; RESP 12–20; TEMP 36.8–37.4; O2SAT 97–99; BMI 32.0
[2025-07-26 00:03] LABS: Anion Gap 6 mmol/L (4-12); Blood Urea Nitrogen 29 mg/dL (9-20); Calcium 10.9 mg/dL (8.4-10.2); Carbon Dioxide 25 mmol/L (22-30); Chloride 105 mmol/L (98-107); Estimated CRCL calculation 38 ml/min; Estimated Glomerular Filt Rate 47; Glucose 125 mg/dL (65-110); Potassium 4.2 mmol/L (3.4-5.0); Sodium 136 mmol/L (137-145)
--- NOTE | 2025-07-26 00:14 | WPDURCON ---
Assessment and Plan Assessment and plan (1) Malignant neoplasm of prostate: Code(s): C61 - Malignant neoplasm of prostate Status: Resolved Plan 74 yo male with AUS, hx of CAP. having difficulties draining bladder - I cycyled the AUS a few times, it seemed to activate fine, I subsequently deactivated AUS leaving him incontinent of urine for the time being (good dimple in the cuff pump), I was able to obtain and urine sample, he seemed to drain well ( incontinent) -will be admited for observation, will have urology team re-evalaute him in the am, to see if AUS can be re-activated vs left open/deactivated in the incontinent state -agree with empiric broad spectrum abx - further management per Dr Meneses Urology Consult Note HPI Date Seen: 07/26/25 Primary Care Provider: Fuentes Orellana MD Consult Narrative Narrative: Derek Freeman is a 74 year old male hx of prostate Cancer and urinary incontinence s/AUS [address] Meneses. Pt has been having trouble operating aus for past few weeks. Having dysuira and feeling like he is not emptying completely. Scheduled for MRI of pelivs and possible revision of AUS by Dr Meneses. Review of Systems Constitutional: Constitutional: Reports no additional constitutional complaints and Denies chills Eyes: Eyes: Reports no additional eye complaints ENT: Reports system reviewed and no additional complaints, except as documented and Reports Normal hearing present Cardiovascular: Cardiovascular: Reports no additional cardiovascular complaints Respiratory: Respiratory: Reports as per HPI and Reports no additional respiratory complaints Gastrointestinal: Gastrointestinal: Reports no additional gastrointestinal complaints Genitourinary: Genitourinary: Reports as per HPI Musculoskeletal: Musculoskeletal: Reports no additional musculoskeletal complaints Integumentary/Breasts: Skin/Breast: Reports system reviewed and no additional complaints, except as docu Neurologic: Reports system reviewed and no additional complaints, except as documented Psychiatric: Psychiatric: Reports no additional psychiatric complaints Hematologic/Lymphatic: Hematologic/Lymphatic: Reports no additional hematologic/lymphatic complaints Allergic/Immunologic: Allergic/Immunologic: Reports no additional allergic/immunologic complaints PMFSH Past Medical History Medical History Benzodiazepine withdrawal with delirium Flank pain Bilateral lower extremity edema Hospital discharge follow-up Hard of hearing reads lips Hypertension Anxiety SOB (shortness of breath) Hyponatremia Cerebrovascular disease Diabetic polyneuropathy Lumbar spine pain BMI 27.0-27.9,adult Chronic pain Spasmodic bladder Trochanteric bursitis, left hip Trochanteric bursitis, right hip Heart disease History of prostate cancer Arthritis History of blood clots Carpal tunnel syndrome on both sides Overweight BMI 26.0-26.9,adult Microscopic colitis Dysphagia BMI 26.0-26.9,adult BMI between 19-24,adult Right shoulder pain Left shoulder pain BMI 25.0-25.9,adult 1st MTP arthritis Depression High cholesterol Shortness of breath Wears glasses Light headedness BMI 25.0-25.9,adult GERD (gastroesophageal reflux disease) HLD (hyperlipidemia) HTN (hypertension) Collagenous colitis Adenomatous colon polyp Tendinitis of both rotator cuffs Groin discomfort CAD (coronary artery disease) Carotid stenosis, asymptomatic h/o intracranial cerebral stenosis, evaluated at [facility] 05/2019, thought not to be symptomatic cont med tx. Glaucoma Personal history of DVT (deep vein thrombosis) Stenosis of infrarenal abdominal aorta due to arteriosclerosis Says his aorta is mildly enlarged Gout (~08/2019) Prostate cancer Anemia Type 2 diabetes mellitus without complications Surgical History Surgical History H/O umbilical hernia repair 01/03/25; Dr Nunez; 6.[address] hernia patch Status post urinary system surgery AMS 800TM device placed 11/09/24 Dr Meneses (urologist [facility] - same urology group as at [facility]) Hx of endarterectomy H/O carotid endarterectomy (~10/2022) History of rotator cuff surgery History of angioplasty History of cataract surgery History of colonoscopy 2019 S/P arthroscopic surgery of left knee H/O rectal polypectomy H/O cystoscopy History of prostatectomy Had prostate cancer, status post prostatectomy and later radiation therapy. Has an implanted device to help with urinary incontinence. H/O cardiac catheterization H/O heart artery stent Family History Family History Father , of lung cancer age 83 Hypertension Lung cancer Sibling Hypertension Mother Family history of malignant neoplasm of breast in first degree relative Breast cancer of breast cancer age 37 Sibling No problems noted. Other Diabetes mellitus Family history of cardiovascular disease Family history of elevated blood lipids Family history of malignant neoplasm Social History Social History Social History: The patient has 2 sons and is . He does not have a durable power litigation attorney. Wishes to be a full code. 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 Uses cane/assist device when out but not always at home. Smoking packs per day: 1 Smoking cigarettes per day: 20.0 Years smoked: 15 Smoking pack-years: 15.00 Smoking status: Former smoker Tobacco type: cigarettes Second hand tobacco smoke exposure: No Smoking end date: 08/31/82 Alcohol intake: unknown Drinks per week: 14 Alcohol use details: 2-3 per day beer Substance use: never Substance use type: does not use Other substance usage details: no beer in over a week; no marijuana in 9 months Do You Feel Safe in your Home?: Yes Lack of Transportation: No Lack of Food: Never True Current Housing: I Have Housing Concerned About Future Housing: No Difficulty Paying Gas/Electric Bills: No Difficulty Paying for Meds: No Currently Unemployed: No Education: Trade/Vocational Certificate Difficulty w/ Childcare or Family Care: No Living arrangements: alone Occupation/Education: retired Additional occupation/education comments: 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 Gender identity (if verbalized by the patient): Male Spiritual care concerns: No Agree to blood products: Yes Meds Home Medications and Allergies Home Medications ?Medication ?Instructions ?Recorded ?Confirmed ?Type nitroglycerin 0.3 mg sublingual 0.3 mg sublingual PRN PRN Chest 12/05/21 07/03/25 History tablet Pain ticagrelor 60 mg tablet (Brilinta) 60 mg PO BID 12/05/21 07/03/25 History aspirin 81 mg tablet,delayed 81 mg PO DAILY 12/06/21 07/03/25 History release (Adult Aspirin Regimen) chlorthalidone 25 mg tablet 25 mg PO DAILY 04/16/23 07/03/25 History rosuvastatin 40 mg tablet 40 mg PO DAILY 10/13/23 07/03/25 History telmisartan 80 mg tablet 80 mg PO DAILY 06/08/24 07/03/25 History amlodipine 5 mg tablet 5 mg PO DAILY 09/29/24 07/03/25 History alprazolam 0.5 mg tablet 0.5 mg PO TID PRN Anxiety #20 tabs 10/10/24 07/03/25 Rx blood sugar diagnostic (Accu-Chek #400 ea 12/06/24 07/03/25 Rx Aaliyah Plus test strips) glimepiride 1 mg tablet 1 mg PO BID #180 tabs 12/06/24 07/03/25 Rx lancets 33 gauge (E-Z Ject Lancets) #400 ea 12/06/24 07/03/25 Rx glucagon 1 mg/0.2 mL subcutaneous 1 mg (0.2 mL) subcut ONCE #0.4 mL 12/07/24 07/03/25 Rx auto-injector (Gvoke HypoPen 2-Pack) metoprolol tartrate 25 mg tablet 25 mg PO Q12H 12/16/24 07/03/25 History albuterol sulfate 90 mcg/actuation 2 inh inhalation Q4H PRN shortness 02/08/25 07/03/25 Rx aerosol inhaler (Ventolin HFA) of breath or wheezing #8.5 grams finerenone 10 mg tablet (Kerendia) See Rx Instructions .Route 03/20/25 07/03/25 Rx .COMPLEX #30 tabs gabapentin 100 mg capsule mg PO TID 04/19/25 07/03/25 History vitamin A and D 1 applic topical 4-6XD PRN skin 04/22/25 07/03/25 Rx irritation 7 days #113 grams allopurinol 300 mg tablet 300 mg PO DAILY #90 tabs 06/12/25 07/03/25 Rx linagliptin 5 mg tablet 5 mg PO QAM #90 tabs 07/03/25 Rx pantoprazole 40 mg tablet,delayed 40 mg PO DAILY #90 tabs 07/12/25 Rx release Allergies Allergy/AdvReac Type Severity Reaction Status Date / Time dapagliflozin (From [facility]) Allergy Severe Hallucinati Verified 07/25/25 21:40 ng metformin AdvReac Severe Diarrhea Verified 07/25/25 21:40 semaglutide (From [facility]) AdvReac Intermediate Confusion Verified 07/25/25 21:40 Vital Signs Vital Signs - 24 hr 07/25/25 21:43 07/25/25 23:48 Temperature 36.5 C Pulse Rate 83 111 H Respiratory Rate 14 19 Blood Pressure 167/47 H 197/56 H Pulse Oximetry 100 99 Oxygen Delivery Room Air Exam Const: General: cooperative, healthy appearing and comfortable HENMT: Head: normocephalic and atraumatic Eyes: General: appearance normal, both eyes and all related structures Neck: Neck: normal visual inspection Chest: Chest palpation & inspection: normal inspection of the chest Resp: Effort & Inspection: normal respiratory effort and able to speak in complete sentences GI: Inspection: normal to inspection and non-distended : General: Yes no CVA tenderness Male General Exam: Yes normal external exam (AUS pump in right hemiscortum, no fixation, no induration or erythema) Skin: General skin exam: normal color and no rashes or lesions noted Neuro: General: oriented to person, oriented to place and oriented to time Extrem: General: normal to inspection Psych: Appearance: grossly normal and well kempt Results Labs 07/25/25 23:37 07/25/25 23:37 Labs: Short CBC 07/25/25 Range/Units 23:37 WBC 11.7 H (4.5-10.0) K/mm3 Hgb 11.1 L (14.0-18.0) g/dL Hct 33.5 L (42.0-52.0) % Plt Count 165 (150-375) k/mm3 BMP 07/25/25 23:37 Sodium 136 L Potassium 4.2 Chloride 105 Carbon Dioxide 25 BUN 29 H Creatinine 1.47 H Glucose 125 H Calcium 10.9 H Urine 07/25/25 Range/Units 23:47 Urine Color Yellow (Yellow) Urine Appearance Cloudy H (Clear) Urine pH 5.5 (5.0-9.0) Ur Specific [place] 1.015 (1.001-1.035) Urine Protein 2+ H (Negative) mg/dL Urine Glucose (UA) Trace H (Negative) mg/dL
[2025-07-26] MEDS: CIPROFLOXACIN 400 MG/D5W 200ML 200 ML 200 MG IVPB (00:57)
[2025-07-26] MEDS: LACTATED RINGERS 1,000 ML 999 ML IV CONT (01:02)
[2025-07-26] MEDS: SODIUM CHLORIDE 0.9% IV 1,000 ML 999 ML IV CONT (02:46)
--- NOTE | 2025-07-26 02:48 | WPCEDHO ---
ED Hand Off Checklist All vitals saved: Yes IV Site documented:Yes All med administrations documented:Yes Triage Note Triage Note Pt arrives from home with c/o 07/25/25 22:59 inability to fully empty bladder today. States that he normally can push a button and create a stream, but today it is only lasting a couple of seconds then will dribble and is painful. States sees Dr Ortiz. Allergies dapagliflozin (From Farxiga) Allergy (Severe, Verified 07/25/25 21:40) Hallucinating Pt was hospitalized after 3 weeks of Farxiga. metformin Adverse Reaction (Severe, Verified 07/25/25 21:40) Diarrhea semaglutide (From Ozempic) Adverse Reaction (Intermediate, Verified 07/25/25 21:40) Confusion Current Diagnoses Malignant neoplasm of prostate (07/26/25) Family History (Last Reviewed 07/25/25 @ 23:33 by Rui Leonard MD) Father Hypertension Lung cancer Sibling Hypertension Mother Family history of malignant neoplasm of breast in first degree relative Breast cancer Sibling No problems noted. Other Diabetes mellitus Family history of cardiovascular disease Family history of elevated blood lipids Family history of malignant neoplasm Active Medications including assessments/comments Sodium Chloride (Normal Saline Iv) 1,000 mls @ 999 mls/hr IV CONT .Q1H1M ONE Stop: 07/26/25 03:39 Last Admin: 07/26/25 02:46 Dose: 999 mls/hr Documented By: BRUCE Infusion/Titration Document 07/26/25 02:46 BRUCE (Rec: 07/26/25 02:46 BRUCE [id number]) Intake IV Site Peripheral Access Left Antecubital Container Volume 1,000 Waste Amount 0 Dosing Infusion Rate 999 Cumulative Dose Not Applicable Increase/Decrease Started Elapsed Time Elapsed Time ( 0m minutes) Administered/Completed Medications Discontinued Medications Hydrocodone Bitart/Acetaminophen (Hydrocodone/Acetaminophen (*Crx) 5-325 Mg Tablet) 1 tab PO ONCE STA Stop: 07/25/25 23:22 Last Admin: 07/25/25 23:37 Dose: 1 tab Documented By: SANGEETA Ciprofloxacin/Dextrose (Cipro 400 Mg/D5w 200 Ml) 200 mls @ 200 mls/hr IVPB ONCE ONE Stop: 07/26/25 01:42 Last Infusion: 07/26/25 02:44 Dose: Infused Documented By: Admin: 07/26/25 00:57 Dose: 200 mls/hr Documented By: SANGEETA Lactated Ringer's (Lr - Lactated Ringers Iv) 1,000 mls @ 999 mls/hr IV CONT .Q1H1M STA Stop: 07/26/25 01:43 Last Infusion: 07/26/25 02:45 Dose: Infused Documented By: Admin: 07/26/25 01:02 Dose: 999 mls/hr Documented By: SANGEETA Interventions/Assessments IV / Saline Lock, Insert Start: 07/25/25 21:39 Freq: Status: Active Protocol: Document 07/25/25 23:57 SANGEETA (Rec: 07/25/25 23:57 SANGEETA [id number]) IV Assessment Peripheral Access Left Antecubital IV Catheter Access Initiated IV Insertion Date 07/25/25 IV Insertion Time 23:57 Catheter Gauge 20 IV Insertion 1 Attempts Ultrasound Used for No Placement IV Site Assessment WNL IV Care and WNL Maintenance PA: Genitourinary Assessment Start: 07/25/25 21:39 Freq: Status: Active Protocol: Document 07/25/25 23:16 SANGEETA (Rec: 07/25/25 23:18 [facility] [id number]) Assessment Genitourinary Retention Symptoms Voiding Method Urinal Genitourinary special scrotum device to help urinate Comments Bladder Scan 260 Measurement (ml) Last Vital Signs Temperature 97.7 F 07/25/25 21:43 Pulse Rate 126 H 07/26/25 02:47 Respiratory Rate 20 07/26/25 02:47 Pulse Oximetry 97 07/26/25 02:47 Blood Pressure 173/52 H 07/26/25 02:47 Blood Pressure Mean 92 07/26/25 02:47 Blood Pressure Position Supine 07/25/25 23:48 Oxygen Delivery Room Air 07/25/25 21:43 Weight 85.1 kg 07/25/25 22:59 Last Result - Abnormals Only WBC 11.7 K/mm3 (4.5-10.0) H 07/25/25 23:37 RBC 3.57 M/mm3 (4.6-6.20) L 07/25/25 23:37 Hgb 11.1 g/dL (14.0-18.0) L 07/25/25 23:37 Hct 33.5 % (42.0-52.0) L 07/25/25 23:37 Immature Gran % (Auto) 0.6 % (0-0.5) H 07/25/25 23:37 Neut % (Auto) 77.4 % (45.5-73.1) H 07/25/25 23:37 Lymph % (Auto) 11.8 % (18.3-44.2) L 07/25/25 23:37 [place] % (Auto) 8.7 % (2.6-8.5) H 07/25/25 23:37 [place] # (Auto) 1.0 K/mm3 (0.1-0.6) H 07/25/25 23:37 Abs Immat Gran (auto) 0.07 K/mm3 (0.00-0.031) H 07/25/25 23:37 Absolute Neuts (auto) 9.0 K/mm3 (1.3-6.7) H 07/25/25 23:37 Sodium 136 mmol/L (137-145) L 07/25/25 23:37 BUN 29 mg/dL (9-20) H 07/25/25 23:37 Creatinine 1.47 mg/dL (0.7-1.3) H 07/25/25 23:37 Estimated GFR 47 (59-) L 07/25/25 23:37 Glucose 125 mg/dL (65-110) H 07/25/25 23:37 Calcium 10.9 mg/dL (8.4-10.2) H 07/25/25 23:37 Urine Appearance Cloudy (Clear) H 07/25/25 23:47 Urine Protein 2+ mg/dL (Negative) H 07/25/25 23:47 Urine Glucose (UA) Trace mg/dL (Negative) H 07/25/25 23:47 Ur Blood (Man) 1+ (Negative) H 07/25/25 23:47 Leukocyte Esterase Rfl 2+ CYNTHIA/UL (Negative) H 07/25/25 23:47 Urine WBC >100 /hpf (0-3) H 07/25/25 23:47 Urine Bacteria 4+ /hpf H 07/25/25 23:47 Most Recent Suicide Severity Rating Suicide Severity Rating NO RISK INDICATED 07/25/25 22:59
--- NOTE | 2025-07-26 03:00 | ADMGEN ---
This patient, Derek Freeman, was admitted to [facility] Surg Room 325-01. Patient/family oriented to hospital policies and general routines including ID bracelet, bed and alarms, visiting hours, pain management, procedures, bathroom and other care routines, personal items, smoking policy, room service/diet, and visiting hours. Information on how to activate the Rapid Response Team has been discussed. Patient/Family are encouraged to report perceived risks to care and to ask questions if they do not understand what they are told or what they should do.
[2025-07-26] MEDS: METOPROLOL TARTRATE 25 MG TABLET PO ×3 (03:17→21:09)
--- NOTE | 2025-07-26 09:12 | ECG_ITS ---
Test Date: 2025-07-26 09:56:44 Measurements Intervals [place] Rate: 84 P: 51 VA: 203 QRS: -13 QRSD: 122 T: 52 QT: 339 QTc: 401 Interpretive Statements SINUS RHYTHM WITH FIRST DEGREE AV BLOCK NONSPECIFIC T-WAVE ABNORMALITY Compared to ECG 01/15/2025 12:26:05 T-wave abnormality now present Electronically Signed On 07-26-2025 13:37:25 FLOOR MOLDER by Taras Euceda M.D.
[2025-07-26] MEDS: ASPIRIN 81 MG ENTERIC TABLET PO (09:56)
[2025-07-26] MEDS: ALPRAZolam (*CRX) 0.5 MG TABLET PO (09:57)
[2025-07-26] MEDS: PANTOPRAZOLE 40 MG TABLET PO (09:57)
[2025-07-26] MEDS: GABAPENTIN 100 MG CAPSULE PO ×2 (09:57→16:37)
--- NOTE | 2025-07-26 10:42 | P.PNUR_ITS ---
Progress Note: A&P Assessment and Plan (1) Status post implantation of artificial urinary sphincter: Code(s): Z96.0 - Presence of urogenital implants Status: Acute (2) Malfunction of device: Code(s): T85.698A - Other mechanical complication of other specified internal prosthetic devices, implants and grafts, initial encounter Status: Acute (3) Acute urinary tract infection: Code(s): N39.0 - Urinary tract infection, site not specified Status: Acute Plan - No plan for surgical intervention -patient may eat -Plan to follow up with Dr. Meneses for possible cystoscopy and further AUS managment. He has a revision surgery scheduled next month for this. His device should remain inactivated. -obtain a PVR and notify us if greater than 200ml. -Patient may discharge from our standpoint. He can go home with antibiotics for possible uti. Can change to culture driven once resulted. Subjective Subjective Date/Time Seen: 07/26/25 10:42 Interval history: patient evaluated at the bedside this morning. the AUS is still deactivated. patient is leaking urine as expected. Review of Systems Review of Systems: per hpi Exam Const: General: comfortable and no acute distress HENMT: Other: [place] with hearing aides. Eyes: General: appearance normal, both eyes and all related structures Resp: Effort & Inspection: normal respiratory effort GI: GI Palp: Yes Soft to palpation Skin: General skin exam: normal color Objective Data Vital Signs Vital Signs: Vital Signs - 24 hr 07/25/25 21:43 07/25/25 23:40 07/25/25 23:48 Temperature 97.7 F Pulse Rate 83 111 H Respiratory Rate 14 19 Blood Pressure 167/47 H 197/56 H Pulse Oximetry 100 98 99 Oxygen Delivery Room Air 07/26/25 00:08 07/26/25 01:50 07/26/25 02:47 Temperature Pulse Rate 126 H Respiratory Rate 20 Blood Pressure 192/100 H 173/52 H Pulse Oximetry 98 97 97 Oxygen Delivery 07/26/25 03:17 07/26/25 03:34 07/26/25 03:39 Temperature 99.3 F Pulse Rate 120 H 120 H 120 H Respiratory Rate 12 12 Blood Pressure 153/51 H Pulse Oximetry 97 97 Oxygen Delivery Room Air 07/26/25 09:27 07/26/25 09:38 07/26/25 09:57 Temperature 98.4 F Pulse Rate 89 80 86 Respiratory Rate 18 Blood Pressure 106/50 L Pulse Oximetry 98 Oxygen Delivery Intake/Output Intake/Output: Intake & Output 07/23/25 07/24/25 07/25/25 07/26/25 23:59 23:59 23:59 23:59 Intake Total 1200 Output Total 0 0 Balance 0 1200 Meds/Results Medications: Active Medications Generic Name Dose Route Start Last Admin Trade Name Freq PRN Reason Stop Dose Admin Acetaminophen 650 mg 07/26/25 01:23 Acetaminophen 325 Mg Tablet PO Q4H PRN Mild Pain (1-3) or Fever Allopurinol 300 mg 07/26/25 09:00 07/26/25 09:57 Allopurinol 300 Mg Tablet PO 300 mg DAILY [facility] Administration Alprazolam 0.5 mg 07/26/25 09:08 07/26/25 09:57 Alprazolam (*Crx) 0.5 Mg Tablet PO 0.5 mg TID PRN Administration Anxiety Aspirin 81 mg 07/26/25 09:00 07/26/25 09:56 Aspirin 81 Mg Enteric Tablet PO 81 mg DAILY [facility] Administration Gabapentin 100 mg 07/26/25 09:00 07/26/25 09:57 Gabapentin 100 Mg Capsule PO 100 mg BID [facility] Administration Metoprolol Tartrate 25 mg 07/26/25 09:10 07/26/25 09:57 Metoprolol Tartrate 25 Mg Tablet PO 25 mg Q12HR [facility] Administration Ondansetron HCl 4 mg 07/26/25 01:23 Ondansetron Inj 4 Mg/2 Ml Vial IV PUSH Q4H PRN Nausea Pantoprazole Sodium 40 mg 07/26/25 09:00 07/26/25 09:57 Pantoprazole 40 Mg Tablet PO 40 mg DAILY [facility] Administration Rosuvastatin Calcium 40 mg 07/26/25 21:00 Rosuvastatin 20 Mg Tablet PO QHS [facility] Labs Labs: Laboratory Results - last 24 hr 07/25/25 07/25/25 23:37 23:47 WBC 11.7 H RBC 3.57 L Hgb 11.1 L Hct 33.5 L MCV 93.8 MCH 31.1 MCHC 33.1 RDW 14.4 Plt Count 165 MPV 10.3 Immature Gran % (Auto) 0.6 H Neut % (Auto) 77.4 H Lymph % (Auto) 11.8 L [place] % (Auto) 8.7 H Eos % (Auto) 1.2 Baso % (Auto) 0.3 Lymph # (Auto) 1.38 [place] # (Auto) 1.0 H Eos # (Auto) 0.1 Baso # (Auto) 0.0 Abs Immat Gran (auto) 0.07 H Absolute Neuts (auto) 9.0 H Absolute Nucleated RBC 0.000 Nucleated RBC % 0.0 PT 12.7 INR 1.0 APTT 26.6 Sodium 136 L Potassium 4.2 Chloride 105 Carbon Dioxide 25 Anion Gap 6 BUN 29 H Creatinine 1.47 H Estim Creat Clear Calc 38 Estimated GFR 47 L Glucose 125 H Calcium 10.9 H Urine Color Yellow Urine Appearance Cloudy H Urine pH 5.5 Ur Specific [place] 1.015 Urine Protein 2+ H Urine Glucose (UA) Trace H Urine Ketones Negative Ur Blood (Man) 1+ H Urine Nitrate Negative Urine Bilirubin Negative Urine Urobilinogen 0.2 Leukocyte Esterase Rfl 2+ H Urine RBC 0-2 Urine WBC >100 H Ur Squamous Epith Cells None seen Urine Bacteria 4+ H Urine Casts 0-2 Blood Type A Negative Antibody Screen Negative
--- NOTE | 2025-07-26 14:54 | PM.IMHP ---
H&P: HPI History of Present Illness Date/Time: 07/26/25 14:54 Chief Complaint: urinary retention Narrative: Patient is a 74 year old male with PMH of HTN, DM type 2, diabetic polyneuropathy, HLD, GERD, CAD, history of DVT, gout, history of prostate cancer and anemia. Patient presented to the ER with complaints of being unable to fully urinate and malfunction of his artificial urinary sphincter device. Patient reports that he has pain in his pelvis that improves with urination. Patient was seen by urology in the ER and the device was turned off bedside. Patient's UA showed 2+ leukocyte esterase, >100 WBC and 4+ bacteria. Lab work showed wbc 11.7, BUN 29, creatinine 1.47 and hemoglobin 11.1. Patient was given IV antibiotics and IV fluids and was admitted for further evaluation and treatment. Urology was consulted to see the patient again during the day to determine if his sphincter device could be reactivated or would need to remain off. Patient reporting worsening lower abdominal pain near the pubic bone. On exam patient has tenderness during palpation to his lower abdomen and pubic bone area. Patient reports this pain started approximately one day ago. CT abdomen and pelvis with contrast ordered. Review of Systems Review of Systems: All systems reviewed & are unremarkable except as noted in HPI and below PMFSH Past Medical History Medical History Benzodiazepine withdrawal with delirium Flank pain Bilateral lower extremity edema Hospital discharge follow-up Hard of hearing reads lips Hypertension Anxiety SOB (shortness of breath) Hyponatremia Cerebrovascular disease Diabetic polyneuropathy Lumbar spine pain BMI 27.0-27.9,adult Chronic pain Spasmodic bladder Trochanteric bursitis, left hip Trochanteric bursitis, right hip Heart disease History of prostate cancer Arthritis History of blood clots Carpal tunnel syndrome on both sides Overweight BMI 26.0-26.9,adult Microscopic colitis Dysphagia BMI 26.0-26.9,adult BMI between 19-24,adult Right shoulder pain Left shoulder pain BMI 25.0-25.9,adult 1st MTP arthritis Depression High cholesterol Shortness of breath Wears glasses Light headedness BMI 25.0-25.9,adult GERD (gastroesophageal reflux disease) HLD (hyperlipidemia) HTN (hypertension) Collagenous colitis Adenomatous colon polyp Tendinitis of both rotator cuffs Groin discomfort CAD (coronary artery disease) Carotid stenosis, asymptomatic h/o intracranial cerebral stenosis, evaluated at [facility] 05/2019, thought not to be symptomatic cont med tx. Glaucoma Personal history of DVT (deep vein thrombosis) Stenosis of infrarenal abdominal aorta due to arteriosclerosis Says his aorta is mildly enlarged Gout (~08/2019) Prostate cancer Anemia Type 2 diabetes mellitus without complications Surgical History Surgical History H/O umbilical hernia repair 01/03/25; Dr Nunez; 6.[address] hernia patch Status post urinary system surgery AMS 800TM device placed 11/09/24 Dr Meneses (urologist [place] - same urology group as at [place]) Hx of endarterectomy H/O carotid endarterectomy (~10/2022) History of rotator cuff surgery History of angioplasty History of cataract surgery History of colonoscopy 2019 S/P arthroscopic surgery of left knee H/O rectal polypectomy H/O cystoscopy History of prostatectomy Had prostate cancer, status post prostatectomy and later radiation therapy. Has an implanted device to help with urinary incontinence. H/O cardiac catheterization H/O heart artery stent Family History Family History Father , of lung cancer age 83 Hypertension Lung cancer Sibling Hypertension Mother Family history of malignant neoplasm of breast in first degree relative Breast cancer of breast cancer age 37 Sibling No problems noted. Other Diabetes mellitus Family history of cardiovascular disease Family history of elevated blood lipids Family history of malignant neoplasm Social History Social History Social History: The patient has 2 sons and is . He does not have a durable power title attorney. Wishes to be a full code. 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 Uses cane/assist device when out but not always at home. Smoking packs per day: 1 Smoking cigarettes per day: 20.0 Years smoked: 15 Smoking pack-years: 15.00 Smoking status: Former smoker Second hand tobacco smoke exposure: No Alcohol intake: current Drinks per week: 14 Alcohol use details: 2-3 per day beer Substance use: never Substance use type: does not use Lack of Transportation: No Lack of Food: Never True Current Housing: I Have Housing Concerned About Future Housing: No Difficulty Paying Gas/Electric Bills: No Difficulty Paying for Meds: No Currently Unemployed: No Education: Trade/Vocational Certificate Difficulty w/ Childcare or Family Care: No Living arrangements: alone Occupation/Education: retired Additional occupation/education comments: 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 Gender identity (if verbalized by the patient): Male Spiritual care concerns: No Agree to blood products: Yes Meds Home Medications and Allergies Home Medications ?Medication ?Instructions ?Recorded ?Confirmed ?Type nitroglycerin 0.3 mg sublingual 0.3 mg sublingual PRN PRN Chest 12/05/21 07/26/25 History tablet Pain ticagrelor 60 mg tablet (Brilinta) 60 mg PO BID 12/05/21 07/26/25 History aspirin 81 mg tablet,delayed 81 mg PO DAILY 12/06/21 07/26/25 History release (Adult Aspirin Regimen) chlorthalidone 25 mg tablet 25 mg PO DAILY 04/16/23 07/26/25 History rosuvastatin 40 mg tablet 40 mg PO QHS 10/13/23 07/26/25 History telmisartan 80 mg tablet 80 mg PO DAILY 06/08/24 07/26/25 History amlodipine 5 mg tablet 5 mg PO DAILY 09/29/24 07/26/25 History alprazolam 0.5 mg tablet 0.5 mg PO TID PRN Anxiety #20 tabs 10/10/24 07/26/25 Rx blood sugar diagnostic (Accu-Chek #400 ea 12/06/24 07/26/25 Rx Aaliyah Plus test strips) glimepiride 1 mg tablet 1 mg PO BID #180 tabs 12/06/24 07/26/25 Rx lancets 33 gauge (E-Z Ject Lancets) #400 ea 12/06/24 07/26/25 Rx glucagon 1 mg/0.2 mL subcutaneous 1 mg (0.2 mL) subcut ONCE #0.4 mL 12/07/24 07/26/25 Rx auto-injector (Gvoke HypoPen 2-Pack) metoprolol tartrate 25 mg tablet 25 mg PO Q12H 12/16/24 07/26/25 History finerenone 10 mg tablet (Kerendia) See Rx Instructions .Route 03/20/25 07/26/25 Rx .COMPLEX #30 tabs gabapentin 100 mg capsule 100 mg PO BID 04/19/25 07/26/25 History allopurinol 300 mg tablet 300 mg PO DAILY #90 tabs 06/12/25 07/26/25 Rx linagliptin 5 mg tablet 5 mg PO QAM #90 tabs 07/03/25 07/26/25 Rx pantoprazole 40 mg tablet,delayed 40 mg PO DAILY #90 tabs 07/12/25 07/26/25 Rx release Allergies Allergy/AdvReac Type Severity Reaction Status Date / Time dapagliflozin (From [facility]) Allergy Severe Hallucinati Verified 07/26/25 03:31 ng metformin AdvReac Severe Diarrhea Verified 07/26/25 03:31 semaglutide (From Ozempic) AdvReac Intermediate Confusion Verified 07/26/25 03:31 Vital Signs Vital Signs - 24 hr 07/25/25 21:43 07/25/25 23:40 07/25/25 23:48 Temperature 97.7 F Pulse Rate 83 111 H Respiratory Rate 14 19 Blood Pressure 167/47 H 197/56 H Pulse Oximetry 100 98 99 Oxygen Delivery Room Air 07/26/25 00:08 07/26/25 01:50 07/26/25 02:47 Temperature Pulse Rate 126 H Respiratory Rate 20 Blood Pressure 192/100 H 173/52 H Pulse Oximetry 98 97 97 Oxygen Delivery 07/26/25 03:17 07/26/25 03:34 07/26/25 03:39 Temperature 99.3 F Pulse Rate 120 H 120 H 120 H Respiratory Rate 12 12 Blood Pressure 153/51 H Pulse Oximetry 97 97 Oxygen Delivery Room Air 07/26/25 09:27 07/26/25 09:38 07/26/25 09:57 Temperature 98.4 F Pulse Rate 89 80 86 Respiratory Rate 18 Blood Pressure 106/50 L Pulse Oximetry 98 Oxygen Delivery 07/26/25 11:13 07/26/25 13:53 Temperature 99.3 F Pulse Rate 76 87 Respiratory Rate 19 Blood Pressure 158/50 H Pulse Oximetry 99 Oxygen Delivery Exam Const: General: comfortable and no acute distress HENMT: Face/Nose/Sinus: Normal nares present Mouth: Yes moist mucous membranes Eyes: General: appearance normal, both eyes and all related structures Sclera: sclerae normal Neck: Neck: supple Resp: Effort & Inspection: normal respiratory effort Auscultation: clear to auscultation bilaterally Cardio: Rate: regular rate Rhythm: regular rhythm GI: GI Palp: Yes Soft to palpation Auscultation: normal bowel sounds Other: lower abdominal and suprapubic tenderness to palpation Skin: General skin exam: normal color and no rashes or lesions noted Neuro: Speech: normal speech Motor exam (neuro): 5/5 motor strength present throughout and Normal motor muscle tone present throughout Sensory Exam: normal sensation Extrem: General: normal to inspection Psych: Mental Status: mental status grossly normal Affect: normal affect H&P: Results Labs Labs: Short CBC 07/25/25 Range/Units 23:37 WBC 11.7 H (4.5-10.0) K/mm3 Hgb 11.1 L (14.0-18.0) g/dL Hct 33.5 L (42.0-52.0) % Plt Count 165 (150-375) k/mm3 BMP 07/25/25 23:37 Sodium 136 L Potassium 4.2 Chloride 105 Carbon Dioxide 25 BUN 29 H Creatinine 1.47 H Glucose 125 H Calcium 10.9 H Urine 07/25/25 Range/Units 23:47 Urine Color Yellow (Yellow) Urine Appearance Cloudy H (Clear) Urine pH 5.5 (5.0-9.0) Ur Specific [place] 1.015 (1.001-1.035) Urine Protein 2+ H (Negative) mg/dL Urine Glucose (UA) Trace H (Negative) mg/dL Assessment and Plan Assessment and plan (1) Acute urinary tract infection: Code(s): N39.0 - Urinary tract infection, site not specified Status: Acute Assessment and Plan: f/u urine cultures s/p IV cipro in the ED start IV ceftriaxone AM labs (2) Acute urinary retention: Code(s): R33.8 - Other retention of urine Status: Acute Assessment and Plan: patient has an implanted urinary sphincter device urology consulted and disabled the device patient is now incontinent of urine patient will need to follow up with Dr. Meneses outpatient for further discussion on next steps regarding his device patient with complaints of lower abdominal pain and tenderness on palpation still, CT abdomen and pelvis ordered (3) Malfunction of device: Code(s): T85.698A - Other mechanical complication of other specified internal prosthetic devices, implants and grafts, initial encounter Status: Acute Assessment and Plan: see above (4) Type 2 diabetes mellitus without complications: Code(s): E11.9 - Type 2 diabetes mellitus without complications Status: Chronic Assessment and Plan: hold home medications while inpatient accu checks avoid hypoglycemia SSI (5) Mixed hyperlipidemia: Code(s): E78.2 - Mixed hyperlipidemia Status: Chronic Assessment and Plan: continue statin (6) Hypertension: Qualifiers: Hypertension type: primary hypertension Qualified Code(s): I10 - Essential (primary) hypertension Code(s): I10 - Essential (primary) hypertension Status: Acute Assessment and Plan: continue amlodipine continue metoprolol continue chlorthalidone continue telmisartan Quality VTE Prophylaxis VTE prophylaxis: mechanical ordered
[2025-07-26 16:06] LABS: Hematocrit 32.5 % (42.0-52.0); Hemoglobin 10.8 g/dL (14.0-18.0); Immature Granulocyte Percent A 0.7 % (0-0.5); Lymphocytes Absolute Auto 1.24 K/mm3 (0.9-3.2); Mean Corpuscular HGB Conc 33.2 g/dl (32-36); Mean Corpuscular Hemoglobin 31.2 pg (26-34); Mean Corpuscular Volume 93.9 fl (80-100); Nucleated Red Blood Cells Absolute Auto 0.000 K/mm3 (0.0-0.012); Nucleated Red Blood Cells Perc 0.0 % (0.0-0.2); Platelet Count Result 160 k/mm3 (150-375); Red Blood Count 3.46 M/mm3 (4.6-6.20); White Blood Count 11.5 K/mm3 (4.5-10.0)
[2025-07-26 16:26] LABS: Alanine Aminotransferase 22 U/L (6-50); Albumin Level 3.3 g/dL (3.5-5.1); Alkaline Phosphatase 78 U/L (38-126); Anion Gap 4 mmol/L (4-12); Aspartate Amino Transferase 22 U/L (17-59); Bilirubin,Total 0.7 mg/dL (0.2-1.3); Blood Urea Nitrogen 27 mg/dL (9-20); Calcium 10.7 mg/dL (8.4-10.2); Carbon Dioxide 26 mmol/L (22-30); Chloride 106 mmol/L (98-107); Estimated CRCL calculation 39 ml/min; Estimated Glomerular Filt Rate 48; Glucose 133 mg/dL (65-110); Potassium 4.2 mmol/L (3.4-5.0); Sodium 136 mmol/L (137-145); Total Protein 6.1 g/dL (6.3-8.2)
[2025-07-26] MEDS: ACETAMINOPHEN 325 MG TABLET 650 MG PO ×2 (16:33→21:09)
[2025-07-26] MEDS: cefTRIAXone 2 GM in SODIUM CHLORIDE 0.9% IV 100 ML 200 ML IVPB (16:37)
[2025-07-26] MEDS: ROSUVASTATIN 20 MG TABLET 40 MG PO (21:09)
[2025-07-26] MEDS: TICAGRELOR 60 MG TABLET PO (21:09)
[2025-07-27] VITALS (16 sets, daily range): BP systolic 133–159; BP diastolic 44–55; PULSE 69–107; RESP 16–19; TEMP 36.3–38.1; O2SAT 92–98
[2025-07-27] MEDS: ACETAMINOPHEN 325 MG TABLET 650 MG PO ×4 (01:26→19:44)
[2025-07-27 08:15] LABS: Hematocrit 32.7 % (42.0-52.0); Hemoglobin 10.7 g/dL (14.0-18.0); Immature Granulocyte Percent A 0.5 % (0-0.5); Lymphocytes Absolute Auto 1.53 K/mm3 (0.9-3.2); Mean Corpuscular HGB Conc 32.7 g/dl (32-36); Mean Corpuscular Hemoglobin 31.1 pg (26-34); Mean Corpuscular Volume 95.1 fl (80-100); Nucleated Red Blood Cells Absolute Auto 0.000 K/mm3 (0.0-0.012); Nucleated Red Blood Cells Perc 0.0 % (0.0-0.2); Platelet Count Result 153 k/mm3 (150-375); Red Blood Count 3.44 M/mm3 (4.6-6.20); White Blood Count 11.6 K/mm3 (4.5-10.0)
[2025-07-27] MEDS: GABAPENTIN 100 MG CAPSULE PO ×2 (08:33→16:59)
[2025-07-27] MEDS: CHLORTHALIDONE 25 MG TABLET PO (08:33)
[2025-07-27] MEDS: ASPIRIN 81 MG ENTERIC TABLET PO (08:33)
[2025-07-27] MEDS: METOPROLOL TARTRATE 25 MG TABLET PO ×2 (08:34→20:08)
[2025-07-27] MEDS: PANTOPRAZOLE 40 MG TABLET PO (08:34)
[2025-07-27] MEDS: TELMISARTAN 40 MG TABLET 80 MG PO (08:34)
[2025-07-27] MEDS: TICAGRELOR 60 MG TABLET PO ×2 (08:34→20:08)
[2025-07-27 09:11] LABS: Alanine Aminotransferase 27 U/L (6-50); Albumin Level 3.6 g/dL (3.5-5.1); Alkaline Phosphatase 83 U/L (38-126); Anion Gap 3 mmol/L (4-12); Aspartate Amino Transferase 30 U/L (17-59); Bilirubin,Total 0.6 mg/dL (0.2-1.3); Blood Urea Nitrogen 28 mg/dL (9-20); Calcium 11.0 mg/dL (8.4-10.2); Carbon Dioxide 27 mmol/L (22-30); Chloride 105 mmol/L (98-107); Estimated CRCL calculation 34 ml/min; Estimated Glomerular Filt Rate 40; Glucose 161 mg/dL (65-110); Potassium 4.4 mmol/L (3.4-5.0); Sodium 135 mmol/L (137-145); Total Protein 6.8 g/dL (6.3-8.2)
--- NOTE | 2025-07-27 11:59 | P.PNUR_ITS ---
Progress Note: A&P Assessment and Plan (1) Malfunction of device: Code(s): T85.698A - Other mechanical complication of other specified internal prosthetic devices, implants and grafts, initial encounter Status: Acute (2) Status post implantation of artificial urinary sphincter: Code(s): Z96.0 - Presence of urogenital implants Status: Acute Assessment and Plan: -- The AUS is locked in the open position, there is leakage upon stress maneuver (cough), the diaper is wet. -- The patient should ambulate to facilitate emptying of his bladder. -- Follow up with Dr. Meneses to discuss AUS management. -- I do not have a clear explanation of why his creatinine has worsened over the past 24 hours, however similar fluctuations are noted on reivew of his chart over the past 12 months and there is no sign of hydronephrosis or obstruction on his CT. Subjective Subjective Date/Time Seen: 07/27/25 11:59 Interval history: NAEO, patient reports he is leaking as expected. Denies other complaint other than desire for discharge. Review of Systems Review of Systems: As reviewed above in HPI All systems reviewed & are unremarkable except as noted in HPI and below Exam Narrative: NAD, A&Ox3 RRR eWOB S/NT/ND 2+ DP, warm/dry extremities Dimple felt in AUS control, leakage upon cough, diaper pad is wet. Objective Data Vital Signs Vital Signs: Vital Signs - 24 hr 07/26/25 13:53 07/26/25 16:00 07/26/25 20:00 Temperature 99.3 F Pulse Rate 87 85 78 Respiratory Rate 19 18 Blood Pressure 158/50 H Pulse Oximetry 99 98 Oxygen Delivery Room Air 07/26/25 20:00 07/26/25 21:09 07/26/25 21:22 Temperature 98.2 F Pulse Rate 72 79 78 Respiratory Rate 18 Blood Pressure 156/50 H Pulse Oximetry 98 Oxygen Delivery 07/27/25 00:00 07/27/25 04:00 07/27/25 05:51 Temperature 97.3 F L Pulse Rate 74 69 81 Respiratory Rate 17 Blood Pressure 155/55 H Pulse Oximetry 98 Oxygen Delivery 07/27/25 08:00 07/27/25 08:15 07/27/25 08:34 Temperature Pulse Rate 102 H 106 H Respiratory Rate Blood Pressure Pulse Oximetry Oxygen Delivery Room Air 07/27/25 08:40 Temperature Pulse Rate 106 H Respiratory Rate Blood Pressure 151/51 H Pulse Oximetry 98 Oxygen Delivery Intake/Output Intake/Output: Intake & Output 07/24/25 07/25/25 07/26/25 07/27/25 23:59 23:59 23:59 23:59 Intake Total 1780 540 Output Total 0 150 Balance 0 1630 540 Meds/Results Medications: Active Medications Generic Name Dose Route Start Last Admin Trade Name Modeq PRN Reason Stop Dose Admin Acetaminophen 650 mg 07/26/25 01:23 07/27/25 08:33 Acetaminophen 325 Mg Tablet PO 650 mg Q4H PRN Administration Mild Pain (1-3) or Fever Allopurinol 300 mg 07/26/25 09:00 07/27/25 08:33 Allopurinol 300 Mg Tablet PO 300 mg DAILY CLARISSA Administration Alprazolam 0.5 mg 07/26/25 09:08 07/26/25 09:57 Alprazolam (*Crx) 0.5 Mg Tablet PO 0.5 mg TID PRN Administration Anxiety Amlodipine Besylate 5 mg 07/27/25 09:00 07/27/25 08:34 Amlodipine Besylate 5 Mg Tablet PO 5 mg DAILY CLARISSA Administration Aspirin 81 mg 07/26/25 09:00 07/27/25 08:33 Aspirin 81 Mg Enteric Tablet PO 81 mg DAILY CLARISSA Administration Chlorthalidone 25 mg 07/27/25 09:00 07/27/25 08:33 Chlorthalidone 25 Mg Tablet PO 25 mg DAILY CLARISSA Administration Dextrose 12.5 gm 07/26/25 22:47 Dextrose 50% 25 Gm/50 Ml Syringe IV PUSH PRN PRN Hypoglycemia Protocol Gabapentin 100 mg 07/26/25 09:00 07/27/25 08:33 Gabapentin 100 Mg Capsule PO 100 mg BID CLARISSA Administration Glucagon 1 mg 07/26/25 22:47 Glucagon For Inj 1 Mg Vial IM PRN PRN Hypoglycemia Protocol Glucose 15 gm 07/26/25 22:47 Glucose Oral Gel 15 Gm Of Glucse In 37.5 Gm Tube PO PRN PRN Hypoglycemia Protocol Ceftriaxone Sodium 2 gm/ 100 mls @ 200 mls/hr 07/26/25 17:00 07/26/25 17:07 Sodium Chloride IVPB Infused Q24H CLARISSA Infusion Dextrose 1,000 mls @ 100 mls/hr 07/26/25 22:47 Dextrose 5% 1,000 Ml IVPB PRN PRN Hypoglycemia Protocol Insulin Aspart 2 - 5 units 07/27/25 08:00 07/27/25 11:49 Insulin Aspart (*Bkc) 100 Units/Ml SUB-Q Not Given TIDWM [facility] Protocol Metoprolol Tartrate 25 mg 07/26/25 09:10 07/27/25 08:34 Metoprolol Tartrate 25 Mg Tablet PO 25 mg Q12HR CLARISSA Administration Miscellaneous Information 1 each 07/26/25 00:01 Finerenone Nonformulary. Can Patient Bring From Home Or Hold Till Discharge? XX 08/25/25 00:00 CLARIFY [facility] Non-Formulary Medication 0 mg 07/26/25 13:00 Finerenone [Kerendia] .ROUTE 08/25/25 12:59 .COMPLEX CLARISSA Ondansetron HCl 4 mg 07/26/25 01:23 Ondansetron Inj 4 Mg/2 Ml Vial IV PUSH Q4H PRN Nausea Pantoprazole Sodium 40 mg 07/26/25 09:00 07/27/25 08:34 Pantoprazole 40 Mg Tablet PO 40 mg DAILY CLARISSA Administration Rosuvastatin Calcium 40 mg 07/26/25 21:00 07/26/25 21:09 Rosuvastatin 20 Mg Tablet PO 40 mg QHS CLARISSA Administration Telmisartan 80 mg 07/27/25 09:00 07/27/25 08:34 Telmisartan 40 Mg Tablet PO 80 mg DAILY CLAIRSSA Administration Ticagrelor 60 mg 07/26/25 21:00 07/27/25 08:34 Ticagrelor 60 Mg Tablet PO 60 mg Q12HR CLARISSA Administration Radiology Results: ITS Impressions Abdomen/Pelvis CT 07/26/25 17:51 IMPRESSION: 1. No acute findings on the CT examination. No bowel obstruction, free fluid or free air. 2. Abdominal aortic iliac stent grafts are in place. 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 The again left ventricular hypertrophy. 3. Postoperative changes of prostatectomy and penile implant placement. Labs Labs: Laboratory Results - last 24 hr 07/26/25 07/27/25 07/27/25 15:26 07:29 08:01 WBC 11.5 H 11.6 H RBC 3.46 L 3.44 L Hgb 10.8 L 10.7 L Hct 32.5 L 32.7 L MCV 93.9 95.1 MCH 31.2 31.1 MCHC 33.2 32.7 RDW 14.4 14.4 Plt Count 160 153 MPV 11.0 H 10.6 H Immature Gran % (Auto) 0.7 H 0.5 Neut % (Auto) 81.8 H 77.1 H Lymph % (Auto) 10.8 L 13.2 L [place] % (Auto) 5.6 7.8 Eos % (Auto) 1.0 1.2 Baso % (Auto) 0.1 L 0.2 Lymph # (Auto) 1.24 1.53 [place] # (Auto) 0.6 0.9 H Eos # (Auto) 0.1 0.1 Baso # (Auto) 0.0 0.0 Abs Immat Gran (auto) 0.08 H 0.06 H Absolute Neuts (auto) 9.4 H 8.9 H Absolute Nucleated RBC 0.000 0.000 Nucleated RBC % 0.0 0.0 Sodium 136 L 135 L Potassium 4.2 4.4 Chloride 106 105 Carbon Dioxide 26 27 Anion Gap 4 3 L BUN 27 H 28 H Creatinine 1.43 H 1.68 H Estim Creat Clear Calc 39 34 Estimated GFR 48 L 40 L Glucose 133 H 161 H POC Capillary Glucose 151 H Calcium 10.7 H 11.0 H Total Bilirubin 0.7 0.6 AST 22 30 ALT 22 27 Alkaline Phosphatase 78 83 Total Protein 6.1 L 6.8 Albumin 3.3 L 3.6 07/27/25 11:28 WBC RBC Hgb Hct MCV MCH MCHC RDW Plt Count MPV Immature Gran % (Auto) Neut % (Auto) Lymph % (Auto) [place] % (Auto) Eos % (Auto) Baso % (Auto) Lymph # (Auto) [place] # (Auto) Eos # (Auto) Baso # (Auto) Abs Immat Gran (auto) Absolute Neuts (auto) Absolute Nucleated RBC Nucleated RBC % Sodium Potassium Chloride Carbon Dioxide Anion Gap BUN Creatinine Estim Creat Clear Calc Estimated GFR Glucose POC Capillary Glucose 194 H Calcium Total Bilirubin AST ALT Alkaline Phosphatase Total Protein Albumin
--- NOTE | 2025-07-27 12:25 | PM.IMPN ---
Progress Note: A&P Assessment and Plan (1) Acute urinary tract infection: Code(s): N39.0 - Urinary tract infection, site not specified Status: Acute Assessment and Plan: f/u urine cultures s/p IV cipro in the ED avoid fluoroquinolones with patients history of aortic endofrafting start IV ceftriaxone, change to IV cefepime wbc count not improving, still 11.6 AM labs (2) Acute urinary retention: Code(s): R33.8 - Other retention of urine Status: Acute Assessment and Plan: patient has an implanted urinary sphincter device urology consulted and disabled the device patient is now incontinent of urine patient will need to follow up with Dr. Meneses outpatient for further discussion on next steps regarding his device patient with complaints of lower abdominal pain and tenderness on palpation still, CT abdomen and pelvis done yesterday without acute findings, it did show a good size bladder and stool throughout the colon patient encouraged to ambulate to help drainage of his bladder, I reinforced this as patient was cement based materials pump tender today on exam (3) Malfunction of device: Code(s): T85.698A - Other mechanical complication of other specified internal prosthetic devices, implants and grafts, initial encounter Status: Acute Assessment and Plan: see above (4) Type 2 diabetes mellitus without complications: Code(s): E11.9 - Type 2 diabetes mellitus without complications Status: Chronic Assessment and Plan: hold home medications while inpatient accu checks avoid hypoglycemia SSI (5) Mixed hyperlipidemia: Code(s): E78.2 - Mixed hyperlipidemia Status: Chronic Assessment and Plan: continue statin (6) Hypertension: Qualifiers: Hypertension type: primary hypertension Qualified Code(s): I10 - Essential (primary) hypertension Code(s): I10 - Essential (primary) hypertension Status: Acute Assessment and Plan: continue amlodipine continue metoprolol continue chlorthalidone continue telmisartan Subjective Date/time seen: 07/27/25 12:25 Interval history: Patient seen for a follow up visit. Patient lying in bed, in no acute distress. Patient reports he is draining some urine but not what he did the last time his surgeon had to disable his device. Urology saw patient and recommended that he walk around to help with emptying. I encouraged patient to be out of bed and walking every 2-3 hours. Patient still very tender in the lower abdomen, suprapubic area. CT abdomen and pelvis yesterday without acute findings, did show pretty full bladder and stool throughout the colon. Patient will be given a dose of miralax and MOM today and if no relief will start on lactulose tomorrow. Patient's wbc count with no improvement, change antibiotic to IV cefepime upon review of previous culture. Avoid fluoroquinilones with ptient's history of aortic endograft placement. Review of Systems Review of Systems: All systems reviewed & are unremarkable except as noted in HPI and below Exam Const: General: comfortable and no acute distress HENMT: Face/Nose/Sinus: Normal nares present Mouth: Yes moist mucous membranes Eyes: General: appearance normal, both eyes and all related structures Sclera: sclerae normal Neck: Neck: supple Resp: Effort & Inspection: normal respiratory effort Auscultation: clear to auscultation bilaterally Cardio: Rate: regular rate Rhythm: regular rhythm GI: Auscultation: normal bowel sounds Other: lower abdominal and suprapubic tenderness to palpation Skin: General skin exam: normal color and no rashes or lesions noted Neuro: Speech: normal speech Motor exam (neuro): 5/5 motor strength present throughout and Normal motor muscle tone present throughout Sensory Exam: normal sensation Extrem: General: normal to inspection Psych: Mental Status: mental status grossly normal Affect: normal affect Objective Data Vital Signs Vital Signs: Vital Signs - 24 hr 07/26/25 13:53 07/26/25 16:00 07/26/25 20:00 Temperature 99.3 F Pulse Rate 87 85 78 Respiratory Rate 19 18 Blood Pressure 158/50 H Pulse Oximetry 99 98 Oxygen Delivery Room Air 07/26/25 20:00 07/26/25 21:09 07/26/25 21:22 Temperature 98.2 F Pulse Rate 72 79 78 Respiratory Rate 18 Blood Pressure 156/50 H Pulse Oximetry 98 Oxygen Delivery 07/27/25 00:00 07/27/25 04:00 07/27/25 05:51 Temperature 97.3 F L Pulse Rate 74 69 81 Respiratory Rate 17 Blood Pressure 155/55 H Pulse Oximetry 98 Oxygen Delivery 07/27/25 08:00 07/27/25 08:15 07/27/25 08:34 Temperature Pulse Rate 102 H 106 H Respiratory Rate Blood Pressure Pulse Oximetry Oxygen Delivery Room Air 07/27/25 08:40 Temperature Pulse Rate 106 H Respiratory Rate Blood Pressure 151/51 H Pulse Oximetry 98 Oxygen Delivery Intake/Output Intake/Output: Intake & Output 07/24/25 07/25/25 07/26/25 07/27/25 23:59 23:59 23:59 23:59 Intake Total 1780 540 Output Total 0 150 Balance 0 1630 540 Meds/Results Medications: Active Medications Generic Name Dose Route Start Last Admin Trade Name Freq PRN Reason Stop Dose Admin Acetaminophen 650 mg 07/26/25 01:23 07/27/25 08:33 Acetaminophen 325 Mg Tablet PO 650 mg Q4H PRN Administration Mild Pain (1-3) or Fever Allopurinol 300 mg 07/26/25 09:00 07/27/25 08:33 Allopurinol 300 Mg Tablet PO 300 mg DAILY CLARISSA Administration Alprazolam 0.5 mg 07/26/25 09:08 07/26/25 09:57 Alprazolam (*Crx) 0.5 Mg Tablet PO 0.5 mg TID PRN Administration Anxiety Amlodipine Besylate 5 mg 07/27/25 09:00 07/27/25 08:34 Amlodipine Besylate 5 Mg Tablet PO 5 mg DAILY CLARISSA Administration Aspirin 81 mg 07/26/25 09:00 07/27/25 08:33 Aspirin 81 Mg Enteric Tablet PO 81 mg DAILY CLARISSA Administration Chlorthalidone 25 mg 07/27/25 09:00 07/27/25 08:33 Chlorthalidone 25 Mg Tablet PO 25 mg DAILY CLARISSA Administration Dextrose 12.5 gm 07/26/25 22:47 Dextrose 50% 25 Gm/50 Ml Syringe IV PUSH PRN PRN Hypoglycemia Protocol Gabapentin 100 mg 07/26/25 09:00 07/27/25 08:33 Gabapentin 100 Mg Capsule PO 100 mg BID CLARISSA Administration Glucagon 1 mg 07/26/25 22:47 Glucagon For Inj 1 Mg Vial IM PRN PRN Hypoglycemia Protocol Glucose 15 gm 07/26/25 22:47 Glucose Oral Gel 15 Gm Of Glucse In 37.5 Gm Tube PO PRN PRN Hypoglycemia Protocol Dextrose 1,000 mls @ 100 mls/hr 07/26/25 22:47 Dextrose 5% 1,000 Ml IVPB PRN PRN Hypoglycemia Protocol Cefepime HCl 2 gm/ Sodium 50 mls @ 100 mls/hr 07/27/25 12:25 Chloride IVPB Q12H [facility] Insulin Aspart 2 - 5 units 07/27/25 08:00 07/27/25 11:49 Insulin Aspart (*Bkc) 100 Units/Ml SUB-Q Not Given TIDWM [facility] Protocol Metoprolol Tartrate 25 mg 07/26/25 09:10 07/27/25 08:34 Metoprolol Tartrate 25 Mg Tablet PO 25 mg Q12HR CLARISSA Administration Miscellaneous Information 1 each 07/26/25 00:01 Finerenone Nonformulary. Can Patient Bring From Home Or Hold Till Discharge? XX 08/25/25 00:00 CLARIFY [facility] Non-Formulary Medication 0 mg 07/26/25 13:00 Finerenone [Kerendia] .ROUTE 08/25/25 12:59 .COMPLEX CLARISSA Ondansetron HCl 4 mg 07/26/25 01:23 Ondansetron Inj 4 Mg/2 Ml Vial IV PUSH Q4H PRN Nausea Pantoprazole Sodium 40 mg 07/26/25 09:00 07/27/25 08:34 Pantoprazole 40 Mg Tablet PO 40 mg DAILY CLARISSA Administration Rosuvastatin Calcium 40 mg 07/26/25 21:00 07/26/25 21:09 Rosuvastatin 20 Mg Tablet PO 40 mg QHS CLARISSA Administration Telmisartan 80 mg 07/27/25 09:00 07/27/25 08:34 Telmisartan 40 Mg Tablet PO 80 mg DAILY CLARISSA Administration Ticagrelor 60 mg 07/26/25 21:00 07/27/25 08:34 Ticagrelor 60 Mg Tablet PO 60 mg Q12HR CLARISSA Administration Radiology Results: ITS Impressions Abdomen/Pelvis CT 07/26/25 17:51 IMPRESSION: 1. No acute findings on the CT examination. No bowel obstruction, free fluid or free air. 2. Abdominal aortic iliac stent grafts are in place. 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 The again left ventricular hypertrophy. 3. Postoperative changes of prostatectomy and penile implant placement. Labs Labs: Laboratory Results - last 24 hr 07/26/25 07/27/25 07/27/25 15:26 07:29 08:01 WBC 11.5 H 11.6 H RBC 3.46 L 3.44 L Hgb 10.8 L 10.7 L Hct 32.5 L 32.7 L MCV 93.9 95.1 MCH 31.2 31.1 MCHC 33.2 32.7 RDW 14.4 14.4 Plt Count 160 153 MPV 11.0 H 10.6 H Immature Gran % (Auto) 0.7 H 0.5 Neut % (Auto) 81.8 H 77.1 H Lymph % (Auto) 10.8 L 13.2 L Hyde % (Auto) 5.6 7.8 Eos % (Auto) 1.0 1.2 Baso % (Auto) 0.1 L 0.2 Lymph # (Auto) 1.24 1.53 Hyde # (Auto) 0.6 0.9 H Eos # (Auto) 0.1 0.1 Baso # (Auto) 0.0 0.0 Abs Immat Gran (auto) 0.08 H 0.06 H Absolute Neuts (auto) 9.4 H 8.9 H Absolute Nucleated RBC 0.000 0.000 Nucleated RBC % 0.0 0.0 Sodium 136 L 135 L Potassium 4.2 4.4 Chloride 106 105 Carbon Dioxide 26 27 Anion Gap 4 3 L BUN 27 H 28 H Creatinine 1.43 H 1.68 H Estim Creat Clear Calc 39 34 Estimated GFR 48 L 40 L Glucose 133 H 161 H POC Capillary Glucose 151 H Calcium 10.7 H 11.0 H Total Bilirubin 0.7 0.6 AST 22 30 ALT 22 27 Alkaline Phosphatase 78 83 Total Protein 6.1 L 6.8 Albumin 3.3 L 3.6 07/27/25 11:28 WBC RBC Hgb Hct MCV MCH MCHC RDW Plt Count MPV Immature Gran % (Auto) Neut % (Auto) Lymph % (Auto) Hyde % (Auto) Eos % (Auto) Baso % (Auto) Lymph # (Auto) Hyde # (Auto) Eos # (Auto) Baso # (Auto) Abs Immat Gran (auto) Absolute Neuts (auto) Absolute Nucleated RBC Nucleated RBC % Sodium Potassium Chloride Carbon Dioxide Anion Gap BUN Creatinine Estim Creat Clear Calc Estimated GFR Glucose POC Capillary Glucose 194 H Calcium Total Bilirubin AST ALT Alkaline Phosphatase Total Protein Albumin Quality VTE Prophylaxis VTE prophylaxis: mechanical ordered
[2025-07-27] MEDS: CEFEPIME 2 GM in SODIUM CHLORIDE 0.9% IV 50 ML 100 ML IVPB ×2 (12:58→20:08)
[2025-07-27] MEDS: MAGNESIUM HYDROXIDE SUSP 30 ML UDC PO (15:07)
--- NOTE | 2025-07-27 16:37 | PHAR ---
The patient's home med of Finerenone [Kerendia] 10 mg tablet has been verified.
[2025-07-27] MEDS: ROSUVASTATIN 20 MG TABLET 40 MG PO (20:07)
[2025-07-27] MEDS: IBUPROFEN 600 MG TABLET PO (22:12)
[2025-07-27] MEDS: ALPRAZolam (*CRX) 0.5 MG TABLET PO (23:53)
[2025-07-28] VITALS (12 sets, daily range): BP systolic 123–160; BP diastolic 42–49; PULSE 61–103; RESP 12–16; TEMP 36.5–37.4; O2SAT 96–98
[2025-07-28 05:47] LABS: Hematocrit 29.1 % (42.0-52.0); Hemoglobin 9.3 g/dL (14.0-18.0); Immature Granulocyte Percent A 0.9 % (0-0.5); Lymphocytes Absolute Auto 1.52 K/mm3 (0.9-3.2); Mean Corpuscular HGB Conc 32.0 g/dl (32-36); Mean Corpuscular Hemoglobin 30.8 pg (26-34); Mean Corpuscular Volume 96.4 fl (80-100); Nucleated Red Blood Cells Absolute Auto 0.000 K/mm3 (0.0-0.012); Nucleated Red Blood Cells Perc 0.0 % (0.0-0.2); Platelet Count Result 140 k/mm3 (150-375); Red Blood Count 3.02 M/mm3 (4.6-6.20); White Blood Count 10.5 K/mm3 (4.5-10.0)
[2025-07-28 06:12] LABS: Alanine Aminotransferase 23 U/L (6-50); Albumin Level 3.1 g/dL (3.5-5.1); Alkaline Phosphatase 79 U/L (38-126); Anion Gap 2 mmol/L (4-12); Aspartate Amino Transferase 23 U/L (17-59); Bilirubin,Total 0.6 mg/dL (0.2-1.3); Blood Urea Nitrogen 37 mg/dL (9-20); Calcium 10.4 mg/dL (8.4-10.2); Carbon Dioxide 27 mmol/L (22-30); Chloride 105 mmol/L (98-107); Estimated CRCL calculation 24 ml/min; Estimated Glomerular Filt Rate 27; Glucose 127 mg/dL (65-110); Potassium 4.1 mmol/L (3.4-5.0); Sodium 134 mmol/L (137-145); Total Protein 6.2 g/dL (6.3-8.2)
[2025-07-28] MEDS: TELMISARTAN 40 MG TABLET 80 MG PO (08:59)
[2025-07-28] MEDS: PANTOPRAZOLE 40 MG TABLET PO (08:59)
[2025-07-28] MEDS: TICAGRELOR 60 MG TABLET PO ×2 (08:59→20:54)
[2025-07-28] MEDS: ASPIRIN 81 MG ENTERIC TABLET PO (08:59)
[2025-07-28] MEDS: GABAPENTIN 100 MG CAPSULE PO ×2 (08:59→17:48)
[2025-07-28] MEDS: CHLORTHALIDONE 25 MG TABLET PO (08:59)
[2025-07-28] MEDS: CEFEPIME 2 GM in SODIUM CHLORIDE 0.9% IV 50 ML 100 ML IVPB ×2 (08:59→20:57)
[2025-07-28] MEDS: METOPROLOL TARTRATE 25 MG TABLET PO ×2 (09:00→20:54)
--- NOTE | 2025-07-28 12:13 | WPDUROPN2 ---
Progress Note: A&P Assessment and Plan (1) Malfunction of device: Code(s): T85.698A - Other mechanical complication of other specified internal prosthetic devices, implants and grafts, initial encounter Status: Acute (2) Status post implantation of artificial urinary sphincter: Code(s): Z96.0 - Presence of urogenital implants Status: Acute Assessment and Plan: -- The AUS is locked in the open position, there is leakage upon stress maneuver (cough), the diaper is wet. -- The patient should ambulate to facilitate emptying of his bladder. -- Follow up with Dr. Meneses to discuss AUS management. -- I do not have a clear explanation of why his creatinine has worsened further over the past 24 hours, RBUS ordered, Nephrology consultation ordered. Subjective Subjective Date/Time Seen: 07/28/25 12:13 Interval history: SCr has risen substantially, unclear etiology. His bladder has 42 mL on bladder scan today, he leaks freely with cough, device is locked open with dimple on pump. Review of Systems Review of Systems: All systems reviewed & are unremarkable except as noted in HPI and below Exam Narrative: NAD, A&Ox3 RRR eWOB S/NT/ND AUS pump with dimple, urine leaks from meatus with cough/stress maneuvers. Bladder scan at bedside wtih 42 mL noted. Objective Data Vital Signs Vital Signs: Vital Signs - 24 hr 07/27/25 13:24 07/27/25 16:00 07/27/25 16:31 Temperature 98.4 F 99.7 F H Pulse Rate 82 103 H Respiratory Rate 19 Blood Pressure 134/47 L Pulse Oximetry 97 Oxygen Delivery 07/27/25 16:51 07/27/25 20:00 07/27/25 20:00 Temperature Pulse Rate 106 H 106 H Respiratory Rate Blood Pressure 133/44 L Pulse Oximetry 92 Oxygen Delivery Room Air 07/27/25 22:00 07/27/25 22:12 07/27/25 23:12 Temperature 99.6 F 100.6 F H 98.6 F Pulse Rate 107 H Respiratory Rate 16 Blood Pressure 159/55 H Pulse Oximetry 96 Oxygen Delivery 07/27/25 23:21 07/28/25 00:00 07/28/25 04:00 Temperature 98.6 F Pulse Rate 85 64 Respiratory Rate Blood Pressure Pulse Oximetry Oxygen Delivery 07/28/25 05:50 07/28/25 08:04 07/28/25 09:00 Temperature 97.7 F Pulse Rate 62 61 77 Respiratory Rate 16 Blood Pressure 123/48 L Pulse Oximetry 96 Oxygen Delivery 07/28/25 09:00 Temperature Pulse Rate Respiratory Rate Blood Pressure Pulse Oximetry Oxygen Delivery Room Air Intake/Output Intake/Output: Intake & Output 07/25/25 07/26/25 07/27/25 07/28/25 23:59 23:59 23:59 23:59 Intake Total 1780 1324 318 Output Total 0 150 Balance 0 1630 1324 318 Meds/Results Medications: Active Medications Generic Name Dose Route Start Last Admin Trade Name Freq PRN Reason Stop Dose Admin Acetaminophen 650 mg 07/26/25 01:23 07/27/25 19:44 Acetaminophen 325 Mg Tablet PO 650 mg Q4H PRN Administration Mild Pain (1-3) or Fever Allopurinol 300 mg 07/26/25 09:00 07/28/25 08:59 Allopurinol 300 Mg Tablet PO 300 mg DAILY CLARISSA Administration Alprazolam 0.5 mg 07/26/25 09:08 07/27/25 23:53 Alprazolam (*Crx) 0.5 Mg Tablet PO 0.5 mg TID PRN Administration Anxiety Amlodipine Besylate 5 mg 07/27/25 09:00 07/28/25 08:59 Amlodipine Besylate 5 Mg Tablet PO 5 mg DAILY CLARISSA Administration Aspirin 81 mg 07/26/25 09:00 07/28/25 08:59 Aspirin 81 Mg Enteric Tablet PO 81 mg DAILY CLARISSA Administration Chlorthalidone 25 mg 07/27/25 09:00 07/28/25 08:59 Chlorthalidone 25 Mg Tablet PO 25 mg DAILY CLARISSA Administration Dextrose 12.5 gm 07/26/25 22:47 Dextrose 50% 25 Gm/50 Ml Syringe IV PUSH PRN PRN Hypoglycemia Protocol Gabapentin 100 mg 07/26/25 09:00 07/28/25 08:59 Gabapentin 100 Mg Capsule PO 100 mg BID CLARISSA Administration Glucagon 1 mg 07/26/25 22:47 Glucagon For Inj 1 Mg Vial IM PRN PRN Hypoglycemia Protocol Glucose 15 gm 07/26/25 22:47 Glucose Oral Gel 15 Gm Of Glucse In 37.5 Gm Tube PO PRN PRN Hypoglycemia Protocol Dextrose 1,000 mls @ 100 mls/hr 07/26/25 22:47 Dextrose 5% 1,000 Ml IVPB PRN PRN Hypoglycemia Protocol Cefepime HCl 2 gm/ Sodium 50 mls @ 100 mls/hr 07/27/25 12:25 07/28/25 08:59 Chloride IVPB 100 mls/hr Q12HR CLARISSA Administration Insulin Aspart 2 - 5 units 07/27/25 08:00 07/28/25 07:51 Insulin Aspart (*Bkc) 100 Units/Ml SUB-Q Not Given TIDWM CLARISSA Protocol Metoprolol Tartrate 25 mg 07/26/25 09:10 07/28/25 09:00 Metoprolol Tartrate 25 Mg Tablet PO 25 mg Q12HR CLARISSA Administration Non-Formulary Medication 0 mg 07/27/25 16:35 07/28/25 09:24 Finerenone [Kerendia] PO 08/26/25 16:34 10 mg QAM CLARISSA Administration Ondansetron HCl 4 mg 07/26/25 01:23 Ondansetron Inj 4 Mg/2 Ml Vial IV PUSH Q4H PRN Nausea Pantoprazole Sodium 40 mg 07/26/25 09:00 07/28/25 08:59 Pantoprazole 40 Mg Tablet PO 40 mg DAILY CLARISSA Administration Polyethylene Glycol 17 gm 07/28/25 09:00 07/28/25 08:59 Polyethylene Glycol 3350 17 Gm Powd.Pack PO 17 gm QAM CLARISSA Administration Rosuvastatin Calcium 40 mg 07/26/25 21:00 07/27/25 20:07 Rosuvastatin 20 Mg Tablet PO 40 mg QHS CLARISSA Administration Telmisartan 80 mg 07/27/25 09:00 07/28/25 08:59 Telmisartan 40 Mg Tablet PO 80 mg DAILY CLARISSA Administration Ticagrelor 60 mg 07/26/25 21:00 07/28/25 08:59 Ticagrelor 60 Mg Tablet PO 60 mg Q12HR CLARISSA Administration Radiology Results: ITS Impressions Abdomen/Pelvis CT 07/26/25 17:51 IMPRESSION: 1. No acute findings on the CT examination. No bowel obstruction, free fluid or free air. 2. Abdominal aortic iliac stent grafts are in place. 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 The again left ventricular hypertrophy. 3. Postoperative changes of prostatectomy and penile implant placement. Labs Labs: Laboratory Results - last 24 hr 07/27/25 07/27/25 07/28/25 16:07 19:52 05:24 WBC 10.5 H RBC 3.02 L Hgb 9.3 L Hct 29.1 L MCV 96.4 MCH 30.8 MCHC 32.0 RDW 14.3 Plt Count 140 L MPV 10.7 H Immature Gran % (Auto) 0.9 H Neut % (Auto) 72.8 Lymph % (Auto) 14.5 L Mccormick % (Auto) 9.6 H Eos % (Auto) 1.9 Baso % (Auto) 0.3 Lymph # (Auto) 1.52 Mccormick # (Auto) 1.0 H Eos # (Auto) 0.2 Baso # (Auto) 0.0 Abs Immat Gran (auto) 0.09 H Absolute Neuts (auto) 7.6 H Absolute Nucleated RBC 0.000 Nucleated RBC % 0.0 Sodium 134 L Potassium 4.1 Chloride 105 Carbon Dioxide 27 Anion Gap 2 L BUN 37 H Creatinine 2.34 H Estim Creat Clear Calc 24 Estimated GFR 27 L Glucose 127 H POC Capillary Glucose 155 H 189 H Calcium 10.4 H Total Bilirubin 0.6 AST 23 ALT 23 Alkaline Phosphatase 79 Total Protein 6.2 L Albumin 3.1 L 07/28/25 07/28/25 07:31 11:33 WBC RBC Hgb Hct MCV MCH MCHC RDW Plt Count MPV Immature Gran % (Auto) Neut % (Auto) Lymph % (Auto) Mccormick % (Auto) Eos % (Auto) Baso % (Auto) Lymph # (Auto) Mccormick # (Auto) Eos # (Auto) Baso # (Auto) Abs Immat Gran (auto) Absolute Neuts (auto) Absolute Nucleated RBC Nucleated RBC % Sodium Potassium Chloride Carbon Dioxide Anion Gap BUN Creatinine Estim Creat Clear Calc Estimated GFR Glucose POC Capillary Glucose 139 H 166 H Calcium Total Bilirubin AST ALT Alkaline Phosphatase Total Protein Albumin
--- NOTE | 2025-07-28 13:02 | P.CONNP_ITS ---
Assessment and Plan Assessment and plan (1) Acute kidney injury: Code(s): N17.9 - Acute kidney failure, unspecified Status: Acute Assessment and Plan: * as noted by labs on 07/28 (creatinine up to 2.34mg/dL) * creatinine at baseline on admission * suspect multifactorial etiology: * contrast exposure (CT scan on 07/26) * urinary tract infection * concurrent ARB and diuretic use * possibly fluctuating urnary retention * other(?) * check urine studies and CPK; follow-up on renal ultrasound * follow trend of repeat labs and UOP (2) Stage 3 chronic kidney disease: Code(s): N18.30 - Chronic kidney disease, stage 3 unspecified Status: Chronic Assessment and Plan: * baseline creatinine runs around 1.4 - 1.8mg/dl * this causes him to fluctuate between CKD stage 3A and 3B * felt to be secondary to hypertension, diabetes, vascular disease, and age- related change (based on outpatient evaluation) (3) Urinary retention: Code(s): R33.9 - Retention of urine, unspecified Status: Acute Assessment and Plan: * though to be secondary to AUS dysfunction * Urology following with interventions noted * continue supportive therapy (4) Urinary tract infection: Code(s): N39.0 - Urinary tract infection, site not specified Status: Acute Assessment and Plan: * as suggested by admission UA * urine culture with GNB * on antibiotics (5) Hypertension: Qualifiers: Hypertension type: primary hypertension Qualified Code(s): I10 - Essential (primary) hypertension Code(s): I10 - Essential (primary) hypertension Status: Chronic Assessment and Plan: * reasonable control * follow closely since ARB and chlorthalidone placed on hold due to #1 * follow trend of hemodynamics (6) Diabetes mellitus: Qualifiers: Diabetes mellitus type: type 2 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 Thank you for allowing me to participate in the care of this patient. L History of Present Illness Reason for Consult Consult date: 07/28/25 Reason for consult: acute renal failure (on chronic kidney disease) Chief Complaint Chief complaint: Artificial urinary sphincter malfunction, UTI History of Present Illness Narrative: The patient is a 74 year old male with a past medical hiostry as outlined below who presented to the ER with complaints of being unable to fully urinate and malfunction of his artificial urinary sphincter device. The patient reports that he has pain in his lower abdomen and pelvis that improves with urination. This continue to be an ongoing issues for the last several days if not longer. As these symtoms ocntinue to progressive get worse, he decided to come to the ER for assessment. Work-up and evaluation in the ER demonstrated the patient to be hemodynamically stable and afebrile. Routine blood work demonstrated a mildly elevated WBC, hemoglobin of 11.1, and creatinine of 1.47mg/dl with stable electrolytes. His UA howed 2+ leukocyte esterase, >100 WBC and 4+ bacteria. After appropirate cultures were obtained, he was started on antibiotics for his presumed UTI. Urology was consulted by the ER and his AUS has been subsequently deactivated. Given his ongoing abdominal pain, and CT of the abdomen/pelvis was done which demonstrated no acute abdominal pathology other than abdominal aortic iliac stent grafts are in place with severe calcific atherosclerotic stenosis at the origin of celiac axis, superior mesenteric artery and renal arteries along with postoperative changes of prostatectomy and penile implant placement. He was subsequently admitted to the hospital for further evaluation and therapy. Since his admission, his has been incontinent of urine since deactivation of his AUS but still has some suprapubic discomfort at this time. Labs this morning demonstrated a decline in his baseline renal function/creatinine. Renal consultation was requested due to acute kidney injury on top of his baseline chronic kidney disease. The patient follows with Dr. Clemente Garibay for management of his chronic kidney disease. His baseline creatinine runs around 1.4-1.8 mg/dL in the las couple of years if not longer and is thought to be secondary due to a combination of his hypertension, diabetes, vascular disease, and age-related change. On admission, his creatinine was at baseline but labsthis morning show his creatinine up to 2.34mg/dL. In spite of the fact that his creatinine is elevated above baseline, he has no critical electrolyte abnormalities, volume overload, metabolic acidosis, or evidence of uremia. Currently, at the time of my visit, he appears to be in no acute distress. Review of Systems 2 Review of Systems: As per HPI. [facility] Past Medical History Medical History Benzodiazepine withdrawal with delirium Flank pain Bilateral lower extremity edema Hospital discharge follow-up Hard of hearing reads lips Hypertension Anxiety SOB (shortness of breath) Hyponatremia Cerebrovascular disease Diabetic polyneuropathy Lumbar spine pain BMI 27.0-27.9,adult Chronic pain Spasmodic bladder Trochanteric bursitis, left hip Trochanteric bursitis, right hip Heart disease History of prostate cancer Arthritis History of blood clots Carpal tunnel syndrome on both sides Overweight BMI 26.0-26.9,adult Microscopic colitis Dysphagia BMI 26.0-26.9,adult BMI between 19-24,adult Right shoulder pain Left shoulder pain BMI 25.0-25.9,adult 1st MTP arthritis Depression High cholesterol Shortness of breath Wears glasses Light headedness BMI 25.0-25.9,adult GERD (gastroesophageal reflux disease) HLD (hyperlipidemia) HTN (hypertension) Collagenous colitis Adenomatous colon polyp Tendinitis of both rotator cuffs Groin discomfort CAD (coronary artery disease) Carotid stenosis, asymptomatic h/o intracranial cerebral stenosis, evaluated at [place] 05/2019, thought not to be symptomatic cont med tx. Glaucoma Personal history of DVT (deep vein thrombosis) Stenosis of infrarenal abdominal aorta due to arteriosclerosis Says his aorta is mildly enlarged Gout (~08/2019) Prostate cancer Anemia Type 2 diabetes mellitus without complications Surgical History Surgical History H/O umbilical hernia repair 01/03/25; Dr Nunez; 6.[address] hernia patch Status post urinary system surgery AMS 800TM device placed 11/09/24 Dr Meneses (urologist [place] - same urology group as at [place]) Hx of endarterectomy H/O carotid endarterectomy (~10/2022) History of rotator cuff surgery History of angioplasty History of cataract surgery History of colonoscopy 2019 S/P arthroscopic surgery of left knee H/O rectal polypectomy H/O cystoscopy History of prostatectomy Had prostate cancer, status post prostatectomy and later radiation therapy. Has an implanted device to help with urinary incontinence. H/O cardiac catheterization H/O heart artery stent Family History Family History Father , of lung cancer age 83 Hypertension Lung cancer Sibling Hypertension Mother Family history of malignant neoplasm of breast in first degree relative Breast cancer of breast cancer age 37 Sibling No problems noted. Other Diabetes mellitus Family history of cardiovascular disease Family history of elevated blood lipids Family history of malignant neoplasm Social History Social History Social History: The patient has 2 sons and is . He does not have a durable power long term care social worker. Wishes to be a full code. 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 Uses cane/assist device when out but not always at home. Smoking packs per day: 1 Smoking cigarettes per day: 20.0 Years smoked: 15 Smoking pack-years: 15.00 Smoking status: Former smoker Second hand tobacco smoke exposure: No Alcohol intake: current Drinks per week: 14 Alcohol use details: 2-3 per day beer Substance use: never Substance use type: does not use Lack of Transportation: No Lack of Food: Never True Current Housing: I Have Housing Concerned About Future Housing: No Difficulty Paying Gas/Electric Bills: No Difficulty Paying for Meds: No Currently Unemployed: No Education: Trade/Vocational Certificate Difficulty w/ Childcare or Family Care: No Living arrangements: alone Occupation/Education: retired Additional occupation/education comments: 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 Gender identity (if verbalized by the patient): Male Spiritual care concerns: No Agree to blood products: Yes Meds Home Medications and Allergies Home Medications ?Medication ?Instructions ?Recorded ?Confirmed ?Type nitroglycerin 0.3 mg sublingual 0.3 mg sublingual PRN PRN Chest 12/05/21 07/26/25 History tablet Pain ticagrelor 60 mg tablet (Brilinta) 60 mg PO BID 07/26/25 History aspirin 81 mg tablet,delayed 81 mg PO DAILY 12/06/21 1 09/25/24 History release (Adult Aspirin Regimen) chlorthalidone 25 mg tablet 25 mg PO DAILY 04/16/23 History rosuvastatin 40 mg tablet 40 mg PO QHS 10/13/23 History telmisartan 80 mg tablet 80 mg PO DAILY 06/08/2407/02 History amlodipine 5 mg tablet 5 mg PO DAILY 09/29/2407/26 History alprazolam 0.5 mg tablet 0.5 mg PO TID PRN Anxiety #2 0 tabs 10/10/24 07/26/25 Rx blood sugar diagnostic (Accu-Chek #400 ea 12/06/24 Rx Aaliyah Plus test strips) glimepiride 1 mg tablet 1 mg PO BID #180 tabs 07/26/25 Rx lancets 33 gauge (E-Z Ject Lancets) #400 ea 12/06/24 1 09/25/24 Rx glucagon 1 mg/0.2 mL subcutaneous 1 mg (0.2 mL) subcut ONCE #0.4 mL 12/07/24 07/26/25 Rx auto-injector (Gvoke HypoPen 2-Pack) metoprolol tartrate 25 mg tablet 25 mg PO Q12H 5 07/26/25 History finerenone 10 mg tablet (Kerendia) See Rx Instructions .Route 03/20/25 07/26/25 Rx .COMPLEX #30 tabs gabapentin 100 mg capsule 100 mg PO BID 04/19/2507/26 History allopurinol 300 mg tablet 300 mg PO DAILY #90 tabs 07/26/25 Rx linagliptin 5 mg tablet 5 mg PO QAM #90 tabs 5 07/26/25 Rx pantoprazole 40 mg tablet,delayed 40 mg PO DAILY #90 t abs 07/12/25 07/26/25 Rx release Allergies Allergy/AdvReac Type Severity Reaction Status Date / Time dapagliflozin (From [facility]) Allergy Severe Hallucinati Verified 07/26/25 03:31 ng metformin AdvReac Severe Diarrhea Verified 07/26/25 03:31 semaglutide (From Ozempic) AdvReac Intermediate Confusion Verified 07/26/25 03:31 Vital Signs Vital Signs Temp Pulse Resp BP Pulse Ox O2 Del Method 07/28/25 12:02 98.8 F 68 12 126/49 L 98 07/28/25 09:00 Room Air 07/28/25 09:00 77 07/28/25 08:04 61 07/28/25 05:50 97.7 F 62 16 123/48 L 96 07/28/25 04:00 64 07/28/25 00:00 85 07/27/25 23:21 98.6 F 07/27/25 23:12 98.6 F 07/27/25 22:12 100.6 F H 07/27/25 22:00 99.6 F 107 H 16 159/55 H 96 07/27/25 20:00 106 H 07/27/25 20:00 Room Air Exam 2 Narrative: GENERAL APPEARANCE: elderly but well developed well nourished male in no acute distress HEENT: normocephalic, atraumatic, normal conjunctiva and sclera, nares patient NECK: no lymphadenopathy, thyromegaly, or JVD MOUTH: normal lips, teeth, and gums CARDIOVASCULAR: RRR, normal S1 and S2, no rub RESPIRATORY: clear to auscultation bilaterally ABDOMEN: soft, nontender, nondistended, positive bowel sounds present EXTREMITIES: no evidence of cyanosis, clubbing, or edema NEUROLOGICAL: alert and oriented x 3; CN II - XII intact bilaterally; no focal deficits noted Results Lab Results 07/28/25 05:24 07/28/25 05:24 Lab results: Most recent lab results Calcium 10.4 mg/dL (8.4-10.2) H 07/28/25 05:24 Urine Creatinine 107.0 mg/dL 07/28/25 15:53
--- NOTE | 2025-07-28 14:55 | P.PNIM_ITS ---
Progress Note: A&P Assessment and Plan (1) Acute urinary tract infection: Code(s): N39.0 - Urinary tract infection, site not specified Status: Acute Assessment and Plan: f/u urine cultures s/p IV cipro in the ED avoid fluoroquinolones with patients history of aortic endofrafting start IV ceftriaxone, change to IV cefepime wbc count improving, 10.5 today AM labs (2) Acute urinary retention: Code(s): R33.8 - Other retention of urine Status: Acute Assessment and Plan: patient has an implanted urinary sphincter device urology consulted and disabled the device patient is now incontinent of urine patient will need to follow up with Dr. 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 (3) Malfunction of device: Code(s): T85.698A - Other mechanical complication of other specified internal prosthetic devices, implants and grafts, initial encounter Status: Acute Assessment and Plan: see above (4) Type 2 diabetes mellitus without complications: Code(s): E11.9 - Type 2 diabetes mellitus without complications Status: Chronic Assessment and Plan: hold home medications while inpatient accu checks avoid hypoglycemia SSI (5) Mixed hyperlipidemia: Code(s): E78.2 - Mixed hyperlipidemia Status: Chronic Assessment and Plan: continue statin (6) Hypertension: Qualifiers: Hypertension type: primary hypertension Qualified Code(s): I10 - Essential (primary) hypertension Code(s): I10 - Essential (primary) hypertension Status: Acute Assessment and Plan: continue amlodipine continue metoprolol continue chlorthalidone continue telmisartan (7) Acute kidney injury: Code(s): N17.9 - Acute kidney failure, unspecified Status: Acute Assessment and Plan: patients baseline creatinine appears to be between 1.4-1.6 creatinine 2.24 today, BUN 37 s/p renal ultrasound without acute findings nephrology consulted hold chlorthalidone and ARB additional testing per nephrology recommendations AM labs Subjective Date/time seen: 07/28/25 14:55 Interval history: Patient seen for a follow up visit. Patient sitting up in chair, in no acute distress. Patient still with complaints of same lower abdominal/pubic area pain. Patient reports if he ambulates his urine fills a diaper. Patient's wbc count improved to 10.5 today. Patients creatinine worsened to 2.34 and BUN to 37. Patient continues on IV cefepime, urine culture pending. Urology following patient. Renal ultrasound ordered without acute findings. Nephrology consulted. Review of Systems Review of Systems: All systems reviewed & are unremarkable except as noted in HPI and below Exam Const: General: comfortable and no acute distress HENMT: Face/Nose/Sinus: Normal nares present Mouth: Yes moist mucous membranes Eyes: General: appearance normal, both eyes and all related structures Sclera: sclerae normal Neck: Neck: supple Resp: Effort & Inspection: normal respiratory effort Auscultation: clear to auscultation bilaterally Cardio: Rate: regular rate Rhythm: regular rhythm GI: Auscultation: normal bowel sounds Other: lower abdominal and suprapubic tenderness to palpation Skin: General skin exam: normal color and no rashes or lesions noted Neuro: Speech: normal speech Motor exam (neuro): 5/5 motor strength present throughout and Normal motor muscle tone present throughout Sensory Exam: normal sensation Extrem: General: normal to inspection Psych: Mental Status: mental status grossly normal Affect: normal affect Objective Data Vital Signs Vital Signs: Vital Signs - 24 hr 07/27/25 16:00 07/27/25 16:31 07/27/25 16:51 Temperature 99.7 F H Pulse Rate 103 H 106 H Respiratory Rate Blood Pressure 133/44 L Pulse Oximetry 92 Oxygen Delivery 07/27/25 20:00 07/27/25 20:00 07/27/25 22:00 Temperature 99.6 F Pulse Rate 106 H 107 H Respiratory Rate 16 Blood Pressure 159/55 H Pulse Oximetry 96 Oxygen Delivery Room Air 07/27/25 22:12 07/27/25 23:12 07/27/25 23:21 Temperature 100.6 F H 98.6 F 98.6 F Pulse Rate Respiratory Rate Blood Pressure Pulse Oximetry Oxygen Delivery 07/28/25 00:00 07/28/25 04:00 07/28/25 05:50 Temperature 97.7 F Pulse Rate 85 64 62 Respiratory Rate 16 Blood Pressure 123/48 L Pulse Oximetry 96 Oxygen Delivery 07/28/25 08:04 07/28/25 09:00 07/28/25 09:00 Temperature Pulse Rate 61 77 Respiratory Rate Blood Pressure Pulse Oximetry Oxygen Delivery Room Air 07/28/25 12:02 Temperature Pulse Rate 72 Respiratory Rate Blood Pressure Pulse Oximetry Oxygen Delivery Intake/Output Intake/Output: Intake & Output 07/25/25 07/26/25 07/27/25 07/28/25 23:59 23:59 23:59 23:59 Intake Total 1780 1324 558 Output Total 0 150 Balance 0 1630 1324 558 Meds/Results Medications: Active Medications Generic Name Dose Route Start Last Admin Trade Name Freq PRN Reason Stop Dose Admin Acetaminophen 650 mg 07/26/25 01:23 07/27/25 19:44 Acetaminophen 325 Mg Tablet PO 650 mg Q4H PRN Administration Mild Pain (1-3) or Fever Allopurinol 300 mg 07/26/25 09:00 07/28/25 08:59 Allopurinol 300 Mg Tablet PO 300 mg DAILY CLARISSA Administration Alprazolam 0.5 mg 07/26/25 09:08 07/27/25 23:53 Alprazolam (*Crx) 0.5 Mg Tablet PO 0.5 mg TID PRN Administration Anxiety Amlodipine Besylate 5 mg 07/27/25 09:00 07/28/25 08:59 Amlodipine Besylate 5 Mg Tablet PO 5 mg DAILY CLARISSA Administration Aspirin 81 mg 07/26/25 09:00 07/28/25 08:59 Aspirin 81 Mg Enteric Tablet PO 81 mg DAILY CLARISSA Administration Chlorthalidone 25 mg 07/27/25 09:00 07/28/25 08:59 Chlorthalidone 25 Mg Tablet PO 25 mg On Hold: 07/28/25 14:11 DAILY CLARISSA Administration Dextrose 12.5 gm 07/26/25 22:47 Dextrose 50% 25 Gm/50 Ml Syringe IV PUSH PRN PRN Hypoglycemia Protocol Gabapentin 100 mg 07/26/25 09:00 07/28/25 08:59 Gabapentin 100 Mg Capsule PO 100 mg BID CLARISSA Administration Glucagon 1 mg 07/26/25 22:47 Glucagon For Inj 1 Mg Vial IM PRN PRN Hypoglycemia Protocol Glucose 15 gm 07/26/25 22:47 Glucose Oral Gel 15 Gm Of Glucse In 37.5 Gm Tube PO PRN PRN Hypoglycemia Protocol Dextrose 1,000 mls @ 100 mls/hr 07/26/25 22:47 Dextrose 5% 1,000 Ml IVPB PRN PRN Hypoglycemia Protocol Cefepime HCl 2 gm/ Sodium 50 mls @ 100 mls/hr 07/27/25 12:25 07/28/25 08:59 Chloride IVPB 100 mls/hr Q12HR CLARISSA Administration Insulin Aspart 2 - 5 units 07/27/25 08:00 07/28/25 12:52 Insulin Aspart (*Bkc) 100 Units/Ml SUB-Q Not Given TIDWM CLARISSA Protocol Metoprolol Tartrate 25 mg 07/26/25 09:10 07/28/25 09:00 Metoprolol Tartrate 25 Mg Tablet PO 25 mg Q12HR CLARISSA Administration Non-Formulary Medication 0 mg 07/27/25 16:35 07/28/25 09:24 Finerenone [Kerendia] PO 08/26/25 16:34 10 mg QAM CLARISSA Administration Ondansetron HCl 4 mg 07/26/25 01:23 Ondansetron Inj 4 Mg/2 Ml Vial IV PUSH Q4H PRN Nausea Pantoprazole Sodium 40 mg 07/26/25 09:00 07/28/25 08:59 Pantoprazole 40 Mg Tablet PO 40 mg DAILY CLARISSA Administration Polyethylene Glycol 17 gm 07/28/25 09:00 07/28/25 08:59 Polyethylene Glycol 3350 17 Gm Powd.Pack PO 17 gm QAM CLARISSA Administration Rosuvastatin Calcium 40 mg 07/26/25 21:00 07/27/25 20:07 Rosuvastatin 20 Mg Tablet PO 40 mg QHS CLARISSA Administration Telmisartan 80 mg 07/27/25 09:00 07/28/25 08:59 Telmisartan 40 Mg Tablet PO 80 mg On Hold: 07/28/25 14:10 DAILY CLARISSA Administration Ticagrelor 60 mg 07/26/25 21:00 07/28/25 08:59 Ticagrelor 60 Mg Tablet PO 60 mg Q12HR CLARISSA Administration Radiology Results: ITS Impressions Abdomen/Pelvis CT 07/26/25 17:51 IMPRESSION: 1. No acute findings on the CT examination. No bowel obstruction, free fluid or free air. 2. Abdominal aortic iliac stent grafts are in place. 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 The again left ventricular hypertrophy. 3. Postoperative changes of prostatectomy and penile implant placement. Renal Ultrasound 07/28/25 13:36 IMPRESSION: 1. No hydronephrosis. Labs Labs: Laboratory Results - last 24 hr 07/27/25 07/27/25 07/28/25 16:07 19:52 05:24 WBC 10.5 H RBC 3.02 L Hgb 9.3 L Hct 29.1 L MCV 96.4 MCH 30.8 MCHC 32.0 RDW 14.3 Plt Count 140 L MPV 10.7 H Immature Gran % (Auto) 0.9 H Neut % (Auto) 72.8 Lymph % (Auto) 14.5 L [place] % (Auto) 9.6 H Eos % (Auto) 1.9 Baso % (Auto) 0.3 Lymph # (Auto) 1.52 [place] # (Auto) 1.0 H Eos # (Auto) 0.2 Baso # (Auto) 0.0 Abs Immat Gran (auto) 0.09 H Absolute Neuts (auto) 7.6 H Absolute Nucleated RBC 0.000 Nucleated RBC % 0.0 Sodium 134 L Potassium 4.1 Chloride 105 Carbon Dioxide 27 Anion Gap 2 L BUN 37 H Creatinine 2.34 H Estim Creat Clear Calc 24 Estimated GFR 27 L Glucose 127 H POC Capillary Glucose 155 H 189 H Calcium 10.4 H Total Bilirubin 0.6 AST 23 ALT 23 Alkaline Phosphatase 79 Total Protein 6.2 L Albumin 3.1 L 07/28/25 07/28/25 07:31 11:33 WBC RBC Hgb Hct MCV MCH MCHC RDW Plt Count MPV Immature Gran % (Auto) Neut % (Auto) Lymph % (Auto) [place] % (Auto) Eos % (Auto) Baso % (Auto) Lymph # (Auto) [place] # (Auto) Eos # (Auto) Baso # (Auto) Abs Immat Gran (auto) Absolute Neuts (auto) Absolute Nucleated RBC Nucleated RBC % Sodium Potassium Chloride Carbon Dioxide Anion Gap BUN Creatinine Estim Creat Clear Calc Estimated GFR Glucose POC Capillary Glucose 139 H 166 H Calcium Total Bilirubin AST ALT Alkaline Phosphatase Total Protein Albumin Quality VTE Prophylaxis VTE prophylaxis: mechanical ordered
[2025-07-28 16:22] LABS: Total Protein Urine Random 40 mg/dL; Ur Ttl Prot Creatinine Ratio 0.37 mg/mg (0-0.20)
[2025-07-28 16:23] LABS: Urea Random Urine 744 MG/DL
[2025-07-28 16:29] LABS: Urine Eos QC 2nd Tech Confirmed
[2025-07-28] MEDS: ROSUVASTATIN 20 MG TABLET 40 MG PO (20:53)
[2025-07-28] MEDS: ALPRAZolam (*CRX) 0.5 MG TABLET PO (21:59)
[2025-07-29] VITALS (12 sets, daily range): BP systolic 106–142; BP diastolic 40–60; PULSE 65–89; RESP 16–18; TEMP 36.2–36.7; O2SAT 99–100
[2025-07-29 06:34] LABS: Hematocrit 31.6 % (42.0-52.0); Hemoglobin 10.2 g/dL (14.0-18.0); Immature Granulocyte Percent A 1.0 % (0-0.5); Lymphocytes Absolute Auto 1.76 K/mm3 (0.9-3.2); Mean Corpuscular HGB Conc 32.3 g/dl (32-36); Mean Corpuscular Hemoglobin 31.0 pg (26-34); Mean Corpuscular Volume 96.0 fl (80-100); Nucleated Red Blood Cells Absolute Auto 0.000 K/mm3 (0.0-0.012); Nucleated Red Blood Cells Perc 0.0 % (0.0-0.2); Platelet Count Result 182 k/mm3 (150-375); Red Blood Count 3.29 M/mm3 (4.6-6.20); White Blood Count 9.2 K/mm3 (4.5-10.0)
[2025-07-29] MEDS: ACETAMINOPHEN 325 MG TABLET 650 MG PO ×3 (06:43→21:24)
[2025-07-29 06:47] LABS: Albumin Level 3.6 g/dL (3.5-5.1); Anion Gap 4 mmol/L (4-12); Blood Urea Nitrogen 39 mg/dL (9-20); Calcium 10.9 mg/dL (8.4-10.2); Carbon Dioxide 29 mmol/L (22-30); Chloride 103 mmol/L (98-107); Creatine Kinase 84 U/L (55-170); Estimated CRCL calculation 28 ml/min; Estimated Glomerular Filt Rate 32; Glucose 146 mg/dL (65-110); Sodium 136 mmol/L (137-145)
[2025-07-29 06:57] LABS: Potassium 4.6 mmol/L (3.4-5.0)
[2025-07-29 07:13] LABS: Thyroid Stimulating Hormone Reflex 1.930 uIU/mL (0.465-4.68)
--- NOTE | 2025-07-29 07:22 | PC.NURSE ---
Patient stated discomfort when sitting in chair due to urinary sphincter malfunction, deactivated. C/O suprapubic and scrotum pain where device is located. Patient bladder was scanned total of 18ml urine retained in bladder. Tylenol given for pain. Patient stable at this time, bed in lowest position, personal belongings within reach with fall precaution bed alarm set.
--- NOTE | 2025-07-29 08:17 | P.PNIM_ITS ---
Progress Note: A&P Assessment and Plan (1) Acute urinary tract infection: Code(s): N39.0 - Urinary tract infection, site not specified Status: Acute Assessment and Plan: f/u urine cultures, gram negative bacilli, follow for final ID and sensitivities s/p IV cipro in the ED avoid fluoroquinolones with patients history of aortic endofrafting start IV ceftriaxone, change to IV cefepime wbc count improved, WNL today AM labs (2) Acute urinary retention: Code(s): R33.8 - Other retention of urine Status: Acute Assessment and Plan: patient has an implanted urinary sphincter device urology consulted and disabled the device patient is now incontinent of urine patient will need to follow up with Dr. Meneses outpatient for further discussion on next steps regarding his device patient with complaints of lower abdominal pain and tenderness on palpation still, CT abdomen and pelvis done yesterday without acute findings, it did show a good size bladder and stool throughout the colon patient encouraged to ambulate to help drainage of his bladder, I reinforced this as patient was mill tender today on exam (3) Malfunction of device: Code(s): T85.698A - Other mechanical complication of other specified internal prosthetic devices, implants and grafts, initial encounter Status: Acute Assessment and Plan: see above (4) Type 2 diabetes mellitus without complications: Code(s): E11.9 - Type 2 diabetes mellitus without complications Status: Chronic Assessment and Plan: hold home medications while inpatient accu checks avoid hypoglycemia SSI (5) Mixed hyperlipidemia: Code(s): E78.2 - Mixed hyperlipidemia Status: Chronic Assessment and Plan: continue statin (6) Hypertension: Qualifiers: Hypertension type: primary hypertension Qualified Code(s): I10 - Essential (primary) hypertension Code(s): I10 - Essential (primary) hypertension Status: Chronic Assessment and Plan: continue amlodipine continue metoprolol chlorthalidone on hold telmisartan on hold blood pressures reviewed and are stable (7) Acute kidney injury: Code(s): N17.9 - Acute kidney failure, unspecified Status: Acute Assessment and Plan: patients baseline creatinine appears to be between 1.4-1.6 creatinine 2.24 07/28, today 2.06 s/p renal ultrasound without acute findings nephrology following hold chlorthalidone and ARB additional testing per nephrology recommendations AM labs Subjective Date/time seen: 07/29/25 08:17 Interval history: Patient seen for a follow up visit. Patient lying in bed, in no acute distress. Patient still reports same lower abdominal pain. Patient's creatinine with improvement on AM labs. Patient's urine culture growing gram negative bacilli, continue on IV cefepime. WBC count normal on today's labs. Urology and nephrology following. Review of Systems Review of Systems: All systems reviewed & are unremarkable except as noted in HPI and below Exam Const: General: comfortable and no acute distress HENMT: Face/Nose/Sinus: Normal nares present Mouth: Yes moist mucous membranes Eyes: General: appearance normal, both eyes and all related structures Sclera: sclerae normal Neck: Neck: supple Resp: Effort & Inspection: normal respiratory effort Auscultation: clear to auscultation bilaterally Cardio: Rate: regular rate Rhythm: regular rhythm GI: Auscultation: normal bowel sounds Other: lower abdominal and suprapubic tenderness to palpation Skin: General skin exam: normal color and no rashes or lesions noted Neuro: Speech: normal speech Motor exam (neuro): 5/5 motor strength present throughout and Normal motor muscle tone present throughout Sensory Exam: normal sensation Extrem: General: normal to inspection Psych: Mental Status: mental status grossly normal Affect: normal affect Objective Data Vital Signs Vital Signs: Vital Signs - 24 hr 07/28/25 09:00 07/28/25 09:00 07/28/25 12:02 Temperature Pulse Rate 77 72 Respiratory Rate Blood Pressure Pulse Oximetry Oxygen Delivery Room Air 07/28/25 14:00 07/28/25 16:00 07/28/25 20:32 Temperature 98.8 F 99.4 F Pulse Rate 68 72 81 Respiratory Rate 12 16 Blood Pressure 126/49 L 160/42 H Pulse Oximetry 98 98 Oxygen Delivery 07/28/25 20:54 07/28/25 21:10 07/28/25 22:00 Temperature Pulse Rate 95 95 103 H Respiratory Rate 16 Blood Pressure Pulse Oximetry 98 Oxygen Delivery Room Air 07/29/25 00:05 07/29/25 04:01 07/29/25 05:36 Temperature 98.1 F Pulse Rate 89 76 78 Respiratory Rate 18 Blood Pressure 119/40 L Pulse Oximetry 100 Oxygen Delivery Intake/Output Intake/Output: Intake & Output 07/26/25 07/27/25 07/28/25 07/29/25 23:59 23:59 23:59 23:59 Intake Total 1780 1324 848 300 Output Total 150 Balance 1630 1324 848 300 Meds/Results Medications: Active Medications Generic Name Dose Route Start Last Admin Trade Name Freq PRN Reason Stop Dose Admin Acetaminophen 650 mg 07/26/25 01:23 07/29/25 06:43 Acetaminophen 325 Mg Tablet PO 650 mg Q4H PRN Administration Mild Pain (1-3) or Fever Allopurinol 300 mg 07/26/25 09:00 07/28/25 08:59 Allopurinol 300 Mg Tablet PO 300 mg DAILY CLARISSA Administration Alprazolam 0.5 mg 07/26/25 09:08 07/28/25 21:59 Alprazolam (*Crx) 0.5 Mg Tablet PO 0.5 mg TID PRN Administration Anxiety Amlodipine Besylate 5 mg 07/27/25 09:00 07/28/25 08:59 Amlodipine Besylate 5 Mg Tablet PO 5 mg DAILY CLARISSA Administration Aspirin 81 mg 07/26/25 09:00 07/28/25 08:59 Aspirin 81 Mg Enteric Tablet PO 81 mg DAILY CLARISSA Administration Chlorthalidone 25 mg 07/27/25 09:00 07/28/25 08:59 Chlorthalidone 25 Mg Tablet PO 25 mg On Hold: 07/28/25 14:11 DAILY CLARISSA Administration Dextrose 12.5 gm 07/26/25 22:47 Dextrose 50% 25 Gm/50 Ml Syringe IV PUSH PRN PRN Hypoglycemia Protocol Gabapentin 100 mg 07/26/25 09:00 07/28/25 17:48 Gabapentin 100 Mg Capsule PO 100 mg BID CLARISSA Administration Glucagon 1 mg 07/26/25 22:47 Glucagon For Inj 1 Mg Vial IM PRN PRN Hypoglycemia Protocol Glucose 15 gm 07/26/25 22:47 Glucose Oral Gel 15 Gm Of Glucse In 37.5 Gm Tube PO PRN PRN Hypoglycemia Protocol Dextrose 1,000 mls @ 100 mls/hr 07/26/25 22:47 Dextrose 5% 1,000 Ml IVPB PRN PRN Hypoglycemia Protocol Cefepime HCl 2 gm/ Sodium 50 mls @ 100 mls/hr 07/27/25 12:25 07/28/25 20:57 Chloride IVPB 100 mls/hr Q12HR CLARISSA Administration Insulin Aspart 2 - 5 units 07/27/25 08:00 07/28/25 17:34 Insulin Aspart (*Bkc) 100 Units/Ml SUB-Q Not Given [facility] Protocol Metoprolol Tartrate 25 mg 07/26/25 09:10 07/28/25 20:54 Metoprolol Tartrate 25 Mg Tablet PO 25 mg Q12HR CLARISSA Administration Non-Formulary Medication 0 mg 07/27/25 16:35 07/28/25 09:24 Finerenone [Kerendia] PO 08/26/25 16:34 10 mg QAM CLARISSA Administration Ondansetron HCl 4 mg 07/26/25 01:23 Ondansetron Inj 4 Mg/2 Ml Vial IV PUSH Q4H PRN Nausea Pantoprazole Sodium 40 mg 07/26/25 09:00 07/28/25 08:59 Pantoprazole 40 Mg Tablet PO 40 mg DAILY CLARISSA Administration Polyethylene Glycol 17 gm 07/28/25 09:00 07/28/25 08:59 Polyethylene Glycol 3350 17 Gm Powd.Pack PO 17 gm QAM CLARISSA Administration Rosuvastatin Calcium 40 mg 07/26/25 21:00 07/28/25 20:53 Rosuvastatin 20 Mg Tablet PO 40 mg QHS CLARISSA Administration Telmisartan 80 mg 07/27/25 09:00 07/28/25 08:59 Telmisartan 40 Mg Tablet PO 80 mg On Hold: 07/28/25 14:10 DAILY CLARISSA Administration Ticagrelor 60 mg 07/26/25 21:00 07/28/25 20:54 Ticagrelor 60 Mg Tablet PO 60 mg Q12HR CLARISSA Administration Radiology Results: ITS Impressions Abdomen/Pelvis CT 07/26/25 17:51 IMPRESSION: 1. No acute findings on the CT examination. No bowel obstruction, free fluid or free air. 2. Abdominal aortic iliac stent grafts are in place. 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 The again left ventricular hypertrophy. 3. Postoperative changes of prostatectomy and penile implant placement. Renal Ultrasound 07/28/25 13:36 IMPRESSION: 1. No hydronephrosis. Labs Labs: Laboratory Results - last 24 hr 07/28/25 07/28/25 07/28/25 11:33 15:53 16:28 WBC RBC Hgb Hct MCV MCH MCHC RDW Plt Count MPV Immature Gran % (Auto) Neut % (Auto) Lymph % (Auto) [place] % (Auto) Eos % (Auto) Baso % (Auto) Lymph # (Auto) [place] # (Auto) Eos # (Auto) Baso # (Auto) Abs Immat Gran (auto) Absolute Neuts (auto) Absolute Nucleated RBC Nucleated RBC % Sodium Potassium Chloride Carbon Dioxide Anion Gap BUN Creatinine Estim Creat Clear Calc Estimated GFR Glucose POC Capillary Glucose 166 H 138 H Calcium Phosphorus Total Creatine Kinase Albumin TSH (Reflex) Urine Eosinophils None seen U Random Total Protein 40 Ur Random Sodium 111 Ur Random Urea 744 Urine Creatinine 107.0 Protein/Creat Ratio 2 0.37 H 07/28/25 07/29/25 07/29/25 19:38 06:17 07:35 WBC 9.2 RBC 3.29 L Hgb 10.2 L Hct 31.6 L MCV 96.0 MCH 31.0 MCHC 32.3 RDW 14.3 Plt Count 182 MPV 10.7 H Immature Gran % (Auto) 1.0 H Neut % (Auto) 66.2 Lymph % (Auto) 19.1 [place] % (Auto) 9.8 H Eos % (Auto) 3.6 Baso % (Auto) 0.3 Lymph # (Auto) 1.76 [place] # (Auto) 0.9 H Eos # (Auto) 0.3 Baso # (Auto) 0.0 Abs Immat Gran (auto) 0.09 H Absolute Neuts (auto) 6.1 Absolute Nucleated RBC 0.000 Nucleated RBC % 0.0 Sodium 136 L Potassium 4.6 Chloride 103 Carbon Dioxide 29 Anion Gap 4 BUN 39 H Creatinine 2.06 H Estim Creat Clear Calc 28 Estimated GFR 32 L Glucose 146 H POC Capillary Glucose 183 H 155 H Calcium 10.9 H Phosphorus 3.4 Total Creatine Kinase 84 Albumin 3.6 TSH (Reflex) 1.930 Urine Eosinophils U Random Total Protein Ur Random Sodium Ur Random Urea Urine Creatinine Protein/Creat Ratio 2 Quality VTE Prophylaxis VTE prophylaxis: mechanical ordered
--- NOTE | 2025-07-29 08:39 | WPDUROPN2 ---
Progress Note: A&P Assessment and Plan (1) Urinary tract infection: Code(s): N39.0 - Urinary tract infection, site not specified Status: Acute (2) Urinary retention: Code(s): R33.9 - Retention of urine, unspecified Status: Acute (3) Status post implantation of artificial urinary sphincter: Code(s): Z96.0 - Presence of urogenital implants Status: Acute (4) Acute urinary retention: Code(s): R33.8 - Other retention of urine Status: Acute Plan Exam concerning for infected AUS. Plan broaden coverage to Vancomycin to cover skin hay, continue Cefepime for GNR, final results pending Cystoscopy to evaluate for cuff erosion, may require removal pending findings If intact, treat with antibiotics, for AUS malfunction--follow up as outpatient to discuss management, leave open until that time Await final urine culture results, treat accordingly Monitor renal function, appreciate Nephrology consultation and recommendations Subjective Subjective Date/Time Seen: 07/29/25 08:39 Interval history: Mr. Freeman is a 74 year old male with history of prostate cancer sp RRP, adjuvant XRT, admitted with UTI, urinary retention due to AUS malfunction, now deactivitated, voiding spontaneously, serum creatinine with initial rise, now improving, no evidence of hydronephrosis, urine culture pending. He reports difficulty with voiding in the days prior to presentation preceded by dysuria. Exam Const: General: comfortable and no acute distress Eyes: General: appearance normal, both eyes and all related structures EOM: EOMs intact bilaterally Resp: Effort & Inspection: normal respiratory effort GI: GI Palp: Yes Soft to palpation : Male General Exam: Yes erythema (Erythema, induration and tenderness over lower abdominal incision) Other: Suprapubic area tender to palpation Erythema over incision extending to base of penis and superior scrotum Skin: General skin exam: normal color Neuro: Speech: normal speech Extrem: General: normal to inspection Psych: Mental Status: mental status grossly normal Affect: normal affect Objective Data Vital Signs Vital Signs: Vital Signs - 24 hr 07/28/25 09:00 07/28/25 09:00 07/28/25 12:02 Temperature Pulse Rate 77 72 Respiratory Rate Blood Pressure Pulse Oximetry Oxygen Delivery Room Air 07/28/25 14:00 07/28/25 16:00 07/28/25 20:32 Temperature 37.1 C 37.4 C Pulse Rate 68 72 81 Respiratory Rate 12 16 Blood Pressure 126/49 L 160/42 H Pulse Oximetry 98 98 Oxygen Delivery 07/28/25 20:54 07/28/25 21:10 07/28/25 22:00 Temperature Pulse Rate 95 95 103 H Respiratory Rate 16 Blood Pressure Pulse Oximetry 98 Oxygen Delivery Room Air 07/29/25 00:05 07/29/25 04:01 07/29/25 05:36 Temperature 36.7 C Pulse Rate 89 76 78 Respiratory Rate 18 Blood Pressure 119/40 L Pulse Oximetry 100 Oxygen Delivery Intake/Output Intake/Output: Intake & Output 07/26/25 07/27/25 07/28/25 07/29/25 23:59 23:59 23:59 23:59 Intake Total 1780 1324 848 300 Output Total 150 Balance 1630 1324 848 300 Meds/Results Medications: Active Medications Generic Name Dose Route Start Last Admin Trade Name Freq PRN Reason Stop Dose Admin Acetaminophen 650 mg 07/26/25 01:23 07/29/25 06:43 Acetaminophen 325 Mg Tablet PO 650 mg Q4H PRN Administration Mild Pain (1-3) or Fever Allopurinol 300 mg 07/26/25 09:00 07/28/25 08:59 Allopurinol 300 Mg Tablet PO 300 mg DAILY CLARISSA Administration Alprazolam 0.5 mg 07/26/25 09:08 07/28/25 21:59 Alprazolam (*Crx) 0.5 Mg Tablet PO 0.5 mg TID PRN Administration Anxiety Amlodipine Besylate 5 mg 07/27/25 09:00 07/28/25 08:59 Amlodipine Besylate 5 Mg Tablet PO 5 mg DAILY CLARISSA Administration Aspirin 81 mg 07/26/25 09:00 07/28/25 08:59 Aspirin 81 Mg Enteric Tablet PO 81 mg DAILY CLARISSA Administration Chlorthalidone 25 mg 07/27/25 09:00 07/28/25 08:59 Chlorthalidone 25 Mg Tablet PO 25 mg On Hold: 07/28/25 14:11 DAILY CLARISSA Administration Dextrose 12.5 gm 07/26/25 22:47 Dextrose 50% 25 Gm/50 Ml Syringe IV PUSH PRN PRN Hypoglycemia Protocol Gabapentin 100 mg 07/26/25 09:00 07/28/25 17:48 Gabapentin 100 Mg Capsule PO 100 mg BID CLARISSA Administration Glucagon 1 mg 07/26/25 22:47 Glucagon For Inj 1 Mg Vial IM PRN PRN Hypoglycemia Protocol Glucose 15 gm 07/26/25 22:47 Glucose Oral Gel 15 Gm Of Glucse In 37.5 Gm Tube PO PRN PRN Hypoglycemia Protocol Dextrose 1,000 mls @ 100 mls/hr 07/26/25 22:47 Dextrose 5% 1,000 Ml IVPB PRN PRN Hypoglycemia Protocol Cefepime HCl 2 gm/ Sodium 50 mls @ 100 mls/hr 07/27/25 12:25 07/28/25 20:57 Chloride IVPB 100 mls/hr Q12HR CLARISSA Administration Insulin Aspart 2 - 5 units 07/27/25 08:00 07/28/25 17:34 Insulin Aspart (*Bkc) 100 Units/Ml SUB-Q Not Given TIDWM CLARISSA Protocol Metoprolol Tartrate 25 mg 07/26/25 09:10 07/28/25 20:54 Metoprolol Tartrate 25 Mg Tablet PO 25 mg Q12HR CLARISSA Administration Non-Formulary Medication 0 mg 07/27/25 16:35 07/28/25 09:24 Finerenone [Kerendia] PO 08/26/25 16:34 10 mg QAM CLARISSA Administration Ondansetron HCl 4 mg 07/26/25 01:23 Ondansetron Inj 4 Mg/2 Ml Vial IV PUSH Q4H PRN Nausea Pantoprazole Sodium 40 mg 07/26/25 09:00 07/28/25 08:59 Pantoprazole 40 Mg Tablet PO 40 mg DAILY CLARISSA Administration Polyethylene Glycol 17 gm 07/28/25 09:00 07/28/25 08:59 Polyethylene Glycol 3350 17 Gm Powd.Pack PO 17 gm QAM CLARISSA Administration Rosuvastatin Calcium 40 mg 07/26/25 21:00 07/28/25 20:53 Rosuvastatin 20 Mg Tablet PO 40 mg QHS CLARISSA Administration Telmisartan 80 mg 07/27/25 09:00 07/28/25 08:59 Telmisartan 40 Mg Tablet PO 80 mg On Hold: 07/28/25 14:10 DAILY CLARISSA Administration Ticagrelor 60 mg 07/26/25 21:00 07/28/25 20:54 Ticagrelor 60 Mg Tablet PO 60 mg Q12HR CLARISSA Administration Radiology Results: ITS Impressions Abdomen/Pelvis CT 07/26/25 17:51 IMPRESSION: 1. No acute findings on the CT examination. No bowel obstruction, free fluid or free air. 2. Abdominal aortic iliac stent grafts are in place. 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 The again left ventricular hypertrophy. 3. Postoperative changes of prostatectomy and penile implant placement. Renal Ultrasound 07/28/25 13:36 IMPRESSION: 1. No hydronephrosis. Labs Labs: Laboratory Results - last 24 hr 07/28/25 07/28/25 07/28/25 11:33 15:53 16:28 WBC RBC Hgb Hct MCV MCH MCHC RDW Plt Count MPV Immature Gran % (Auto) Neut % (Auto) Lymph % (Auto) [place] % (Auto) Eos % (Auto) Baso % (Auto) Lymph # (Auto) [place] # (Auto) Eos # (Auto) Baso # (Auto) Abs Immat Gran (auto) Absolute Neuts (auto) Absolute Nucleated RBC Nucleated RBC % Sodium Potassium Chloride Carbon Dioxide Anion Gap BUN Creatinine Estim Creat Clear Calc Estimated GFR Glucose POC Capillary Glucose 166 H 138 H Calcium Phosphorus Total Creatine Kinase Albumin TSH (Reflex) Urine Eosinophils None seen U Random Total Protein 40 Ur Random Sodium 111 Ur Random Urea 744 Urine Creatinine 107.0 Protein/Creat Ratio 2 0.37 H 07/28/25 07/29/25 07/29/25 19:38 06:17 07:35 WBC 9.2 RBC 3.29 L Hgb 10.2 L Hct 31.6 L MCV 96.0 MCH 31.0 MCHC 32.3 RDW 14.3 Plt Count 182 MPV 10.7 H Immature Gran % (Auto) 1.0 H Neut % (Auto) 66.2 Lymph % (Auto) 19.1 [place] % (Auto) 9.8 H Eos % (Auto) 3.6 Baso % (Auto) 0.3 Lymph # (Auto) 1.76 [place] # (Auto) 0.9 H Eos # (Auto) 0.3 Baso # (Auto) 0.0 Abs Immat Gran (auto) 0.09 H Absolute Neuts (auto) 6.1 Absolute Nucleated RBC 0.000 Nucleated RBC % 0.0 Sodium 136 L Potassium 4.6 Chloride 103 Carbon Dioxide 29 Anion Gap 4 BUN 39 H Creatinine 2.06 H Estim Creat Clear Calc 28 Estimated GFR 32 L Glucose 146 H POC Capillary Glucose 183 H 155 H Calcium 10.9 H Phosphorus 3.4 Total Creatine Kinase 84 Albumin 3.6 TSH (Reflex) 1.930 Urine Eosinophils U Random Total Protein Ur Random Sodium Ur Random Urea Urine Creatinine Protein/Creat Ratio 2
[2025-07-29] MEDS: CEFEPIME 2 GM in SODIUM CHLORIDE 0.9% IV 50 ML 100 ML IVPB ×2 (08:41→20:17)
[2025-07-29] MEDS: ASPIRIN 81 MG ENTERIC TABLET PO (08:42)
[2025-07-29] MEDS: GABAPENTIN 100 MG CAPSULE PO ×2 (08:42→17:00)
[2025-07-29] MEDS: TICAGRELOR 60 MG TABLET PO ×2 (08:43→20:18)
[2025-07-29] MEDS: PANTOPRAZOLE 40 MG TABLET PO (08:43)
[2025-07-29] MEDS: METOPROLOL TARTRATE 25 MG TABLET PO ×2 (08:43→20:18)
--- NOTE | 2025-07-29 11:56 | P.PNNP_ITS ---
Progress Note: A&P Assessment and Plan (1) Acute kidney injury: Code(s): N17.9 - Acute kidney failure, unspecified Status: Acute Assessment and Plan: * as noted by labs on 07/28 (creatinine up to 2.34mg/dL) * creatinine at baseline on admission * suspect multifactorial etiology: * contrast exposure (CT scan on 07/26) * urinary tract infection * concurrent ARB and diuretic use * possibly fluctuating urnary retention * other(?) * renal ultrasound shows no hydro * UA shows white cells. Culture shows Gram-negative bacilli. He is on cefepime. * Urine electrolytes and fractional excretion of urea show non pre renal scenario. * His creatinine fell from 2.34 to 2.06. So flea this is just contrast nephropathy and will return to baseline in a few days. (2) Stage 3 chronic kidney disease: Code(s): N18.30 - Chronic kidney disease, stage 3 unspecified Status: Chronic Assessment and Plan: * baseline creatinine runs around 1.4 - 1.8mg/dl * this causes him to fluctuate between CKD stage 3A and 3B * felt to be secondary to hypertension, diabetes, vascular disease, and age- related change (based on outpatient evaluation) (3) Urinary retention: Code(s): R33.9 - Retention of urine, unspecified Status: Acute Assessment and Plan: * though to be secondary to AUS dysfunction * Urology following with interventions noted * continue supportive therapy (4) Urinary tract infection: Code(s): N39.0 - Urinary tract infection, site not specified Status: Acute Assessment and Plan: * as suggested by admission UA * urine culture with GNB * on Cefepime (5) Hypertension: Qualifiers: Hypertension type: primary hypertension Qualified Code(s): I10 - Essential (primary) hypertension Code(s): I10 - Essential (primary) hypertension Status: Chronic Assessment and Plan: * systolic mostly 110-140. An occasional spike into the 150s and 160s which is noted. * follow closely since ARB and chlorthalidone placed on hold due to #1 * Once creatinine gets back to baseline we can fold in his Allen inhibitor and diuretic again. He will need these. * As renal failure and infection improve his blood pressure will probably rise. (6) Diabetes mellitus: Qualifiers: Diabetes mellitus type: type 2 Diabetes mellitus intermediate insulin use: without intermediate use Diabetes mellitus complication status: with other specified complication Qualified Code(s): E11.69 - Type 2 diabetes mellitus with other specified complication Code(s): E11.9 - Type 2 diabetes mellitus without complications Status: Chronic Assessment and Plan: * follow accu-cheks * glyemic control per hospitalist Subjective Date/time seen: 07/29/25 11:56 Interval history: patient feels okay today. He does not have a Wheeler catheter in place and the bladder stimulator is turned off so he is wearing diapers because he constantly dribbles urine. Review of Systems Cardiovascular: Cardiovascular: Reports no additional cardiovascular complaints Respiratory: Respiratory: Reports no additional respiratory complaints Gastrointestinal: Gastrointestinal: Reports no additional gastrointestinal complaints Genitourinary: Genitourinary: Reports no additional male genitourinary complaints Exam Narrative: WDWN in NAD skin no rash head ncat lungs clear cor reg no rub abd BS+ nontender and soft ext no edema. Objective Data Vital Signs Vital Signs: Vital Signs - 24 hr 07/28/25 12:02 07/28/25 14:00 07/28/25 16:00 Temperature 98.8 F Pulse Rate 72 68 72 Respiratory Rate 12 Blood Pressure 126/49 L Pulse Oximetry 98 Oxygen Delivery 07/28/25 20:32 07/28/25 20:54 07/28/25 21:10 Temperature 99.4 F Pulse Rate 81 95 95 Respiratory Rate 16 16 Blood Pressure 160/42 H Pulse Oximetry 98 98 Oxygen Delivery Room Air 07/28/25 22:00 07/29/25 00:05 07/29/25 04:01 Temperature Pulse Rate 103 H 89 76 Respiratory Rate Blood Pressure Pulse Oximetry Oxygen Delivery 07/29/25 05:36 07/29/25 08:35 07/29/25 08:43 Temperature 98.1 F Pulse Rate 78 78 Respiratory Rate 18 Blood Pressure 119/40 L Pulse Oximetry 100 Oxygen Delivery Room Air 07/29/25 08:48 07/29/25 10:59 07/29/25 11:11 Temperature Pulse Rate Respiratory Rate Blood Pressure 130/45 L Pulse Oximetry Oxygen Delivery Room Air Room Air Intake/Output Intake/Output: Intake & Output 07/26/25 07/27/25 07/28/25 07/29/25 23:59 23:59 23:59 23:59 Intake Total 1780 1324 898 540 Output Total 150 Balance 1630 1324 898 540 Meds/Results Medications: Active Medications Generic Name Dose Route Start Last Admin Trade Name Freq PRN Reason Stop Dose Admin Acetaminophen 650 mg 07/26/25 01:23 07/29/25 06:43 Acetaminophen 325 Mg Tablet PO 650 mg Q4H PRN Administration Mild Pain (1-3) or Fever Allopurinol 300 mg 07/26/25 09:00 07/29/25 08:43 Allopurinol 300 Mg Tablet PO 300 mg DAILY CLARISSA Administration Alprazolam 0.5 mg 07/26/25 09:08 07/28/25 21:59 Alprazolam (*Crx) 0.5 Mg Tablet PO 0.5 mg TID PRN Administration Anxiety Amlodipine Besylate 5 mg 07/27/25 09:00 07/29/25 08:46 Amlodipine Besylate 5 Mg Tablet PO 5 mg DAILY CLARISSA Administration Aspirin 81 mg 07/26/25 09:00 07/29/25 08:42 Aspirin 81 Mg Enteric Tablet PO 81 mg DAILY CLARISSA Administration Chlorthalidone 25 mg 07/27/25 09:00 07/28/25 08:59 Chlorthalidone 25 Mg Tablet PO 25 mg On Hold: 07/28/25 14:11 DAILY CLARISSA Administration Dextrose 12.5 gm 07/26/25 22:47 Dextrose 50% 25 Gm/50 Ml Syringe IV PUSH PRN PRN Hypoglycemia Protocol Gabapentin 100 mg 07/26/25 09:00 07/29/25 08:42 Gabapentin 100 Mg Capsule PO 100 mg BID CLARISSA Administration Glucagon 1 mg 07/26/25 22:47 Glucagon For Inj 1 Mg Vial IM PRN PRN Hypoglycemia Protocol Glucose 15 gm 07/26/25 22:47 Glucose Oral Gel 15 Gm Of Glucse In 37.5 Gm Tube PO PRN PRN Hypoglycemia Protocol Dextrose 1,000 mls @ 100 mls/hr 07/26/25 22:47 Dextrose 5% 1,000 Ml IVPB PRN PRN Hypoglycemia Protocol Cefepime HCl 2 gm/ Sodium 50 mls @ 100 mls/hr 07/27/25 12:25 07/29/25 08:41 Chloride IVPB 100 mls/hr Q12HR CLARISSA Administration Insulin Aspart 2 - 5 units 07/27/25 08:00 07/29/25 08:40 Insulin Aspart (*Bkc) 100 Units/Ml SUB-Q Not Given TIDWM [facility] Protocol Metoprolol Tartrate 25 mg 07/26/25 09:10 07/29/25 08:43 Metoprolol Tartrate 25 Mg Tablet PO 25 mg Q12HR CLARISSA Administration Non-Formulary Medication 0 mg 07/27/25 16:35 07/29/25 08:59 Finerenone [Kerendia] PO 08/26/25 16:34 10 mg QAM CLARISSA Administration Ondansetron HCl 4 mg 07/26/25 01:23 Ondansetron Inj 4 Mg/2 Ml Vial IV PUSH Q4H PRN Nausea Pantoprazole Sodium 40 mg 07/26/25 09:00 07/29/25 08:43 Pantoprazole 40 Mg Tablet PO 40 mg DAILY CLARISSA Administration Polyethylene Glycol 17 gm 07/28/25 09:00 07/29/25 08:42 Polyethylene Glycol 3350 17 Gm Powd.Pack PO 17 gm QAM CLARISSA Administration Rosuvastatin Calcium 40 mg 07/26/25 21:00 07/28/25 20:53 Rosuvastatin 20 Mg Tablet PO 40 mg QHS CLARISSA Administration Telmisartan 80 mg 07/27/25 09:00 07/28/25 08:59 Telmisartan 40 Mg Tablet PO 80 mg On Hold: 07/28/25 14:10 DAILY CLARISSA Administration Ticagrelor 60 mg 07/26/25 21:00 07/29/25 08:43 Ticagrelor 60 Mg Tablet PO 60 mg Q12HR CLARISSA Administration Radiology Results: ITS Impressions Abdomen/Pelvis CT 07/26/25 17:51 IMPRESSION: 1. No acute findings on the CT examination. No bowel obstruction, free fluid or free air. 2. Abdominal aortic iliac stent grafts are in place. 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 The again left ventricular hypertrophy. 3. Postoperative changes of prostatectomy and penile implant placement. Renal Ultrasound 07/28/25 13:36 IMPRESSION: 1. No hydronephrosis. Labs Labs: Laboratory Results - last 24 hr 07/28/25 07/28/25 07/28/25 15:53 16:28 19:38 WBC RBC Hgb Hct MCV MCH MCHC RDW Plt Count MPV Immature Gran % (Auto) Neut % (Auto) Lymph % (Auto) [place] % (Auto) Eos % (Auto) Baso % (Auto) Lymph # (Auto) [place] # (Auto) Eos # (Auto) Baso # (Auto) Abs Immat Gran (auto) Absolute Neuts (auto) Absolute Nucleated RBC Nucleated RBC % Sodium Potassium Chloride Carbon Dioxide Anion Gap BUN Creatinine Estim Creat Clear Calc Estimated GFR Glucose POC Capillary Glucose 138 H 183 H Calcium Phosphorus Total Creatine Kinase Albumin Vitamin D 25-Hydroxy TSH (Reflex) Urine Eosinophils None seen U Random Total Protein 40 Ur Random Sodium 111 Ur Random Urea 744 Urine Creatinine 107.0 Protein/Creat Ratio 2 0.37 H 07/29/25 07/29/25 07/29/25 06:17 07:35 11:31 WBC 9.2 RBC 3.29 L Hgb 10.2 L Hct 31.6 L MCV 96.0 MCH 31.0 MCHC 32.3 RDW 14.3 Plt Count 182 MPV 10.7 H Immature Gran % (Auto) 1.0 H Neut % (Auto) 66.2 Lymph % (Auto) 19.1 [place] % (Auto) 9.8 H Eos % (Auto) 3.6 Baso % (Auto) 0.3 Lymph # (Auto) 1.76 [place] # (Auto) 0.9 H Eos # (Auto) 0.3 Baso # (Auto) 0.0 Abs Immat Gran (auto) 0.09 H Absolute Neuts (auto) 6.1 Absolute Nucleated RBC 0.000 Nucleated RBC % 0.0 Sodium 136 L Potassium 4.6 Chloride 103 Carbon Dioxide 29 Anion Gap 4 BUN 39 H Creatinine 2.06 H Estim Creat Clear Calc 28 Estimated GFR 32 L Glucose 146 H POC Capillary Glucose 155 H 154 H Calcium 10.9 H Phosphorus 3.4 Total Creatine Kinase 84 Albumin 3.6 Vitamin D 25-Hydroxy 37.2 TSH (Reflex) 1.930 Urine Eosinophils U Random Total Protein Ur Random Sodium Ur Random Urea Urine Creatinine Protein/Creat Ratio 2
[2025-07-29] MEDS: ROSUVASTATIN 20 MG TABLET 40 MG PO (20:18)
[2025-07-29] MEDS: ALPRAZolam (*CRX) 0.5 MG TABLET PO (21:24)
[2025-07-29] MEDS: VANCOMYCIN 1,250 MG/NS 250 ML 1,250 MG/250 ML BAG 166.67 MG IVPB (23:28)
[2025-07-30] VITALS (12 sets, daily range): BP systolic 116–154; BP diastolic 40–76; PULSE 61–76; RESP 18; TEMP 36.1–36.6; O2SAT 99–100
[2025-07-30] MEDS: ACETAMINOPHEN 325 MG TABLET 650 MG PO ×2 (06:26→16:10)
[2025-07-30 06:27] LABS: Hematocrit 30.9 % (42.0-52.0); Hemoglobin 10.0 g/dL (14.0-18.0); Immature Granulocyte Percent A 1.2 % (0-0.5); Lymphocytes Absolute Auto 1.76 K/mm3 (0.9-3.2); Mean Corpuscular HGB Conc 32.4 g/dl (32-36); Mean Corpuscular Hemoglobin 31.2 pg (26-34); Mean Corpuscular Volume 96.3 fl (80-100); Nucleated Red Blood Cells Absolute Auto 0.000 K/mm3 (0.0-0.012); Nucleated Red Blood Cells Perc 0.0 % (0.0-0.2); Platelet Count Result 182 k/mm3 (150-375); Red Blood Count 3.21 M/mm3 (4.6-6.20); White Blood Count 7.5 K/mm3 (4.5-10.0)
[2025-07-30 06:50] LABS: Alanine Aminotransferase 44 U/L (6-50); Albumin Level 3.5 g/dL (3.5-5.1); Alkaline Phosphatase 86 U/L (38-126); Anion Gap 2 mmol/L (4-12); Aspartate Amino Transferase 46 U/L (17-59); Bilirubin,Total 0.4 mg/dL (0.2-1.3); Blood Urea Nitrogen 39 mg/dL (9-20); Calcium 10.3 mg/dL (8.4-10.2); Carbon Dioxide 28 mmol/L (22-30); Chloride 106 mmol/L (98-107); Estimated CRCL calculation 25 ml/min; Estimated Glomerular Filt Rate 28; Glucose 148 mg/dL (65-110); Potassium 4.4 mmol/L (3.4-5.0); Sodium 136 mmol/L (137-145); Total Protein 7.0 g/dL (6.3-8.2)
--- NOTE | 2025-07-30 07:08 | P.PNIM_ITS ---
Progress Note: A&P Assessment and Plan (1) Acute urinary tract infection: Code(s): N39.0 - Urinary tract infection, site not specified Status: Acute Assessment and Plan: f/u urine cultures, gram negative bacilli, follow for final ID and sensitivities s/p IV cipro in the ED avoid fluoroquinolones with patients history of aortic endofrafting start IV ceftriaxone, change to IV cefepime wbc count improved, WNL today AM labs (2) Acute urinary retention: Code(s): R33.8 - Other retention of urine Status: Acute Assessment and Plan: patient has an implanted urinary sphincter device urology consulted and disabled the device patient is now incontinent of urine patient will need to follow up with Dr. Meneses outpatient for further discussion on next steps regarding his device patient with complaints of lower abdominal pain and tenderness on palpation still, CT abdomen and pelvis done yesterday without acute findings, it did show a good size bladder and stool throughout the colon patient encouraged to ambulate to help drainage of his bladder, I reinforced this as patient was pressing machine tender today on exam patient's creatinine belgica again today, discussed with Dr. Garibay, we will check another CT abdomen/pelvis without contrast to evaluate the size of the bladder. Discussed with nurse to have patient ambulate prior to CT to encourage bladder to empty. Urology started patient on IV vancomycin last evening due to concern for skin infection with his AUS due to pain not improving (3) Malfunction of device: Code(s): T85.698A - Other mechanical complication of other specified internal prosthetic devices, implants and grafts, initial encounter Status: Acute Assessment and Plan: see above (4) Type 2 diabetes mellitus without complications: Code(s): E11.9 - Type 2 diabetes mellitus without complications Status: Chronic Assessment and Plan: hold home medications while inpatient accu checks avoid hypoglycemia SSI (5) Mixed hyperlipidemia: Code(s): E78.2 - Mixed hyperlipidemia Status: Chronic Assessment and Plan: continue statin (6) Hypertension: Qualifiers: Hypertension type: primary hypertension Qualified Code(s): I10 - Essential (primary) hypertension Code(s): I10 - Essential (primary) hypertension Status: Chronic Assessment and Plan: continue amlodipine continue metoprolol chlorthalidone on hold telmisartan on hold blood pressures reviewed and are stable (7) Acute kidney injury: Code(s): N17.9 - Acute kidney failure, unspecified Status: Acute Assessment and Plan: patients baseline creatinine appears to be between 1.4-1.6 creatinine 2.24 07/28, 2.06 07/29 and 2.28 today s/p renal ultrasound without acute findings nephrology following hold chlorthalidone and ARB additional testing per nephrology recommendations AM labs Subjective Date/time seen: 07/30/25 07:08 Interval history: Patient seen for a follow up visit. Patient sitting in bed, in no acute distress. Patient was started on IV vancomycin last evening per urology with concern for possible skin infection due to AUS. Patient's creatinine increased this AM to 2.28. Nephrology following. Check CT abdomen and pelvis without contrast to evaluate patient's bladder size as it was distended on first CT. Order for CT placed and nurse to have patient ambulate prior to CT to encourage emptying of his bladder. Patient and nurse voiced understanding. Patient continues on IV cefepime. Urine culture with gram negative bacilli, still awaiting final ID and sensitivities. Review of Systems Review of Systems: All systems reviewed & are unremarkable except as noted in HPI and below Exam Const: General: comfortable and no acute distress HENMT: Face/Nose/Sinus: Normal nares present Mouth: Yes moist mucous membranes Eyes: General: appearance normal, both eyes and all related structures Sclera: sclerae normal Neck: Neck: supple Resp: Effort & Inspection: normal respiratory effort Auscultation: clear to auscultation bilaterally Cardio: Rate: regular rate Rhythm: regular rhythm GI: Auscultation: normal bowel sounds Other: lower abdominal and suprapubic tenderness to palpation Skin: General skin exam: normal color and no rashes or lesions noted Neuro: Speech: normal speech Motor exam (neuro): 5/5 motor strength present throughout and Normal motor muscle tone present throughout Sensory Exam: normal sensation Extrem: General: normal to inspection Psych: Mental Status: mental status grossly normal Affect: normal affect Objective Data Vital Signs Vital Signs: Vital Signs - 24 hr 07/29/25 08:00 07/29/25 08:35 07/29/25 08:43 Temperature Pulse Rate 75 78 Respiratory Rate Blood Pressure Pulse Oximetry Oxygen Delivery Room Air 07/29/25 08:48 07/29/25 10:59 07/29/25 11:11 Temperature Pulse Rate Respiratory Rate Blood Pressure 130/45 L Pulse Oximetry Oxygen Delivery Room Air Room Air 07/29/25 12:00 07/29/25 14:00 07/29/25 16:00 Temperature 97.3 F L Pulse Rate 87 65 68 Respiratory Rate 16 Blood Pressure 106/40 L Pulse Oximetry 99 Oxygen Delivery 07/29/25 20:00 07/29/25 20:00 07/29/25 21:48 Temperature 97.1 F L Pulse Rate 70 73 Respiratory Rate 18 Blood Pressure 142/60 H Pulse Oximetry 99 Oxygen Delivery Room Air 07/29/25 22:47 07/30/25 00:00 07/30/25 04:00 Temperature Pulse Rate 69 65 Respiratory Rate Blood Pressure Pulse Oximetry 99 Oxygen Delivery Room Air Intake/Output Intake/Output: Intake & Output 07/27/25 07/28/25 07/29/25 07/30/25 23:59 23:59 23:59 23:59 Intake Total 1324 898 920 Balance 1324 898 920 Meds/Results Medications: Active Medications Generic Name Dose Route Start Last Admin Trade Name Freq PRN Reason Stop Dose Admin Acetaminophen 650 mg 07/26/25 01:23 07/30/25 06:26 Acetaminophen 325 Mg Tablet PO 650 mg Q4H PRN Administration Mild Pain (1-3) or Fever Allopurinol 300 mg 07/26/25 09:00 07/29/25 08:43 Allopurinol 300 Mg Tablet PO 300 mg DAILY CLARISSA Administration Alprazolam 0.5 mg 07/26/25 09:08 07/29/25 21:24 Alprazolam (*Crx) 0.5 Mg Tablet PO 0.5 mg TID PRN Administration Anxiety Amlodipine Besylate 5 mg 07/27/25 09:00 07/29/25 08:46 Amlodipine Besylate 5 Mg Tablet PO 5 mg DAILY CLARISSA Administration Aspirin 81 mg 07/26/25 09:00 07/29/25 08:42 Aspirin 81 Mg Enteric Tablet PO 81 mg DAILY CLARISSA Administration Chlorthalidone 25 mg 07/27/25 09:00 07/28/25 08:59 Chlorthalidone 25 Mg Tablet PO 25 mg On Hold: 07/28/25 14:11 DAILY CLARISSA Administration Dextrose 12.5 gm 07/26/25 22:47 Dextrose 50% 25 Gm/50 Ml Syringe IV PUSH PRN PRN Hypoglycemia Protocol Gabapentin 100 mg 07/26/25 09:00 07/29/25 17:00 Gabapentin 100 Mg Capsule PO 100 mg BID CLARISSA Administration Glucagon 1 mg 07/26/25 22:47 Glucagon For Inj 1 Mg Vial IM PRN PRN Hypoglycemia Protocol Glucose 15 gm 07/26/25 22:47 Glucose Oral Gel 15 Gm Of Glucse In 37.5 Gm Tube PO PRN PRN Hypoglycemia Protocol Dextrose 1,000 mls @ 100 mls/hr 07/26/25 22:47 Dextrose 5% 1,000 Ml IVPB PRN PRN Hypoglycemia Protocol Cefepime HCl 2 gm/ Sodium 50 mls @ 100 mls/hr 07/27/25 12:25 07/29/25 20:17 Chloride IVPB 100 mls/hr Q12HR CLARISSA Administration Insulin Aspart 2 - 5 units 07/27/25 08:00 07/29/25 17:01 Insulin Aspart (*Bkc) 100 Units/Ml SUB-Q Not Given TIDWM CLARISSA Protocol Metoprolol Tartrate 25 mg 07/26/25 09:10 07/29/25 20:18 Metoprolol Tartrate 25 Mg Tablet PO 25 mg Q12HR CLARISSA Administration Non-Formulary Medication 0 mg 07/27/25 16:35 07/29/25 08:59 Finerenone [Kerendia] PO 08/26/25 16:34 10 mg QAM CLARISSA Administration Ondansetron HCl 4 mg 07/26/25 01:23 Ondansetron Inj 4 Mg/2 Ml Vial IV PUSH Q4H PRN Nausea Pantoprazole Sodium 40 mg 07/26/25 09:00 07/29/25 08:43 Pantoprazole 40 Mg Tablet PO 40 mg DAILY CLARISSA Administration Polyethylene Glycol 17 gm 07/28/25 09:00 07/29/25 08:42 Polyethylene Glycol 3350 17 Gm Powd.Pack PO 17 gm QAM CLARISSA Administration Rosuvastatin Calcium 40 mg 07/26/25 21:00 07/29/25 20:18 Rosuvastatin 20 Mg Tablet PO 40 mg QHS CLARISSA Administration Telmisartan 80 mg 07/27/25 09:00 07/28/25 08:59 Telmisartan 40 Mg Tablet PO 80 mg On Hold: 07/28/25 14:10 DAILY CLARISSA Administration Ticagrelor 60 mg 07/26/25 21:00 07/29/25 20:18 Ticagrelor 60 Mg Tablet PO 60 mg Q12HR CLARISSA Administration Vancomycin HCl 1 each 07/29/25 23:00 Vancomycin For Acute Kidney Injury IVPB PRN PRN Vancomycin Protocol Radiology Results: ITS Impressions Abdomen/Pelvis CT 07/26/25 17:51 IMPRESSION: 1. No acute findings on the CT examination. No bowel obstruction, free fluid or free air. 2. Abdominal aortic iliac stent grafts are in place. 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 The again left ventricular hypertrophy. 3. Postoperative changes of prostatectomy and penile implant placement. Renal Ultrasound 07/28/25 13:36 IMPRESSION: 1. No hydronephrosis. Labs Labs: Laboratory Results - last 24 hr 07/29/25 07/29/25 07/29/25 06:17 07:35 11:31 WBC RBC Hgb Hct MCV MCH MCHC RDW Plt Count MPV Immature Gran % (Auto) Neut % (Auto) Lymph % (Auto) [place] % (Auto) Eos % (Auto) Baso % (Auto) Lymph # (Auto) [place] # (Auto) Eos # (Auto) Baso # (Auto) Abs Immat Gran (auto) Absolute Neuts (auto) Absolute Nucleated RBC Nucleated RBC % Sodium Potassium Chloride Carbon Dioxide Anion Gap BUN Creatinine Estim Creat Clear Calc Estimated GFR Glucose POC Capillary Glucose 155 H 154 H Calcium Phosphorus Total Bilirubin AST ALT Alkaline Phosphatase Total Protein Albumin Vitamin D 25-Hydroxy 37.2 TSH (Reflex) 1.930 Ur Random Creatinine Ur Random Calcium Calcium/Creat Ratio 07/29/25 07/29/25 07/29/25 16:31 17:50 20:09 WBC RBC Hgb Hct MCV MCH MCHC RDW Plt Count MPV Immature Gran % (Auto) Neut % (Auto) Lymph % (Auto) [place] % (Auto) Eos % (Auto) Baso % (Auto) Lymph # (Auto) [place] # (Auto) Eos # (Auto) Baso # (Auto) Abs Immat Gran (auto) Absolute Neuts (auto) Absolute Nucleated RBC Nucleated RBC % Sodium Potassium Chloride Carbon Dioxide Anion Gap BUN Creatinine Estim Creat Clear Calc Estimated GFR Glucose POC Capillary Glucose 108 H 188 H Calcium Phosphorus Total Bilirubin AST ALT Alkaline Phosphatase Total Protein Albumin Vitamin D 25-Hydroxy TSH (Reflex) Ur Random Creatinine Cancelled Ur Random Calcium Cancelled Calcium/Creat Ratio Cancelled 07/30/25 06:10 WBC 7.5 RBC 3.21 L Hgb 10.0 L Hct 30.9 L MCV 96.3 MCH 31.2 MCHC 32.4 RDW 14.1 Plt Count 182 MPV 10.8 H Immature Gran % (Auto) 1.2 H Neut % (Auto) 60.0 Lymph % (Auto) 23.3 [place] % (Auto) 10.2 H Eos % (Auto) 4.5 H Baso % (Auto) 0.8 Lymph # (Auto) 1.76 [place] # (Auto) 0.8 H Eos # (Auto) 0.3 Baso # (Auto) 0.1 Abs Immat Gran (auto) 0.09 H Absolute Neuts (auto) 4.5 Absolute Nucleated RBC 0.000 Nucleated RBC % 0.0 Sodium 136 L Potassium 4.4 Chloride 106 Carbon Dioxide 28 Anion Gap 2 L BUN 39 H Creatinine 2.28 H Estim Creat Clear Calc 25 Estimated GFR 28 L Glucose 148 H POC Capillary Glucose Calcium 10.3 H Phosphorus 3.4 Total Bilirubin 0.4 AST 46 ALT 44 Alkaline Phosphatase 86 Total Protein 7.0 Albumin 3.5 Vitamin D 25-Hydroxy TSH (Reflex) Ur Random Creatinine Ur Random Calcium Calcium/Creat Ratio Quality VTE Prophylaxis VTE prophylaxis: mechanical ordered
[2025-07-30] MEDS: CEFEPIME 2 GM in SODIUM CHLORIDE 0.9% IV 50 ML 100 ML IVPB ×2 (08:27→21:46)
[2025-07-30] MEDS: METOPROLOL TARTRATE 25 MG TABLET PO ×2 (08:28→21:41)
[2025-07-30] MEDS: GABAPENTIN 100 MG CAPSULE PO ×2 (08:29→16:10)
[2025-07-30] MEDS: PANTOPRAZOLE 40 MG TABLET PO (08:29)
[2025-07-30] MEDS: TICAGRELOR 60 MG TABLET PO ×2 (08:29→21:41)
[2025-07-30] MEDS: ASPIRIN 81 MG ENTERIC TABLET PO (08:29)
--- NOTE | 2025-07-30 10:30 | P.PNNP_ITS ---
Progress Note: A&P Assessment and Plan (1) Acute kidney injury: Code(s): N17.9 - Acute kidney failure, unspecified Status: Acute Assessment and Plan: * as noted by labs on 07/28 (creatinine up to 2.34mg/dL) * creatinine at baseline on admission * suspect multifactorial etiology: * contrast exposure (CT scan on 07/26) * urinary tract infection * concurrent ARB and diuretic use * possibly fluctuating urnary retention * other(?) * renal ultrasound shows no hydro * however CT scan did show bladder distention although not mentioned in the report. * UA shows white cells. Culture shows Gram-negative bacilli. He is on cefepime. * Urology expanded the antibiotic coverage to vancomycin Just yesterday. * His creatinine is today we can blame the vancomycin since he just got a dose yesterday. * I suspect he is obstructed. * Discussed at length with hospitalist HARRY Mendez. he does have a distended bladder on CT scan. She will repeat the CT scan and see if the bladder is still distended. If so he might need a Wheeler if this is allowed with his device in. If not may be a supra pubic catheter question * Urine electrolytes and fractional excretion of urea show non pre renal scenario. * His creatinine fell from 2.34 to 2.06 but today is back up again. * contrast nephropathy is still in the mix, however with the higher creatinine today, obstruction may be a new issue. (2) Stage 3 chronic kidney disease: Code(s): N18.30 - Chronic kidney disease, stage 3 unspecified Status: Chronic Assessment and Plan: * baseline creatinine runs around 1.4 - 1.8mg/dl * this causes him to fluctuate between CKD stage 3A and 3B * felt to be secondary to hypertension, diabetes, vascular disease, and age- related change (based on outpatient evaluation) (3) Urinary retention: Code(s): R33.9 - Retention of urine, unspecified Status: Acute Assessment and Plan: * though to be secondary to AUS dysfunction * Urology following with interventions noted * continue supportive therapy (4) Urinary tract infection: Code(s): N39.0 - Urinary tract infection, site not specified Status: Acute Assessment and Plan: * as suggested by admission UA * urine culture with enterobacter * on Cefepime (5) Hypertension: Qualifiers: Hypertension type: primary hypertension Qualified Code(s): I10 - Essential (primary) hypertension Code(s): I10 - Essential (primary) hypertension Status: Chronic Assessment and Plan: * systolic mostly 110-140. An occasional spike into the 150s and 160s which is noted. * follow closely since ARB and chlorthalidone placed on hold due to #1 * Once creatinine gets back to baseline we can fold in his Allen inhibitor and diuretic again. He will need these. * As renal failure and infection improve his blood pressure will probably rise. 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 Still leaking some urine as the only way of getting rid of urine. Exam Narrative: WDWN in NAD skin no rash or subcu not head ncat lungs clear bilateral cor reg no rub abd BS+ nontender and soft ext no edema. Objective Data Vital Signs Vital Signs: Vital Signs - 24 hr 07/29/25 10:59 07/29/25 11:11 07/29/25 12:00 Temperature Pulse Rate 87 Respiratory Rate Blood Pressure Pulse Oximetry Oxygen Delivery Room Air Room Air 07/29/25 14:00 07/29/25 16:00 07/29/25 20:00 Temperature 97.3 F L Pulse Rate 65 68 Respiratory Rate 16 Blood Pressure 106/40 L Pulse Oximetry 99 Oxygen Delivery Room Air 07/29/25 20:00 07/29/25 21:48 07/29/25 22:47 Temperature 97.1 F L Pulse Rate 70 73 Respiratory Rate 18 Blood Pressure 142/60 H Pulse Oximetry 99 99 Oxygen Delivery Room Air 07/30/25 00:00 07/30/25 04:00 07/30/25 06:00 Temperature 97.9 F Pulse Rate 69 65 61 Respiratory Rate 18 Blood Pressure 116/76 Pulse Oximetry 99 Oxygen Delivery 07/30/25 08:00 07/30/25 08:28 Temperature Pulse Rate 76 Respiratory Rate Blood Pressure Pulse Oximetry Oxygen Delivery Room Air Intake/Output Intake/Output: Intake & Output 07/27/25 07/28/25 07/29/25 07/30/25 23:59 23:59 23:59 23:59 Intake Total 1324 898 970 650 Balance 1324 898 970 650 Meds/Results Medications: Active Medications Generic Name Dose Route Start Last Admin Trade Name Freq PRN Reason Stop Dose Admin Acetaminophen 650 mg 07/26/25 01:23 07/30/25 06:26 Acetaminophen 325 Mg Tablet PO 650 mg Q4H PRN Administration Mild Pain (1-3) or Fever Allopurinol 300 mg 07/26/25 09:00 07/30/25 08:29 Allopurinol 300 Mg Tablet PO 300 mg DAILY CLARISSA Administration Alprazolam 0.5 mg 07/26/25 09:08 07/29/25 21:24 Alprazolam (*Crx) 0.5 Mg Tablet PO 0.5 mg TID PRN Administration Anxiety Amlodipine Besylate 5 mg 07/27/25 09:00 07/30/25 08:29 Amlodipine Besylate 5 Mg Tablet PO 5 mg DAILY CLARISSA Administration Aspirin 81 mg 07/26/25 09:00 07/30/25 08:29 Aspirin 81 Mg Enteric Tablet PO 81 mg DAILY CLARISSA Administration Chlorthalidone 25 mg 07/27/25 09:00 07/28/25 08:59 Chlorthalidone 25 Mg Tablet PO 25 mg On Hold: 07/28/25 14:11 DAILY CLARISSA Administration Dextrose 12.5 gm 07/26/25 22:47 Dextrose 50% 25 Gm/50 Ml Syringe IV PUSH PRN PRN Hypoglycemia Protocol Gabapentin 100 mg 07/26/25 09:00 07/30/25 08:29 Gabapentin 100 Mg Capsule PO 100 mg BID CLARISSA Administration Glucagon 1 mg 07/26/25 22:47 Glucagon For Inj 1 Mg Vial IM PRN PRN Hypoglycemia Protocol Glucose 15 gm 07/26/25 22:47 Glucose Oral Gel 15 Gm Of Glucse In 37.5 Gm Tube PO PRN PRN Hypoglycemia Protocol Dextrose 1,000 mls @ 100 mls/hr 07/26/25 22:47 Dextrose 5% 1,000 Ml IVPB PRN PRN Hypoglycemia Protocol Cefepime HCl 2 gm/ Sodium 50 mls @ 100 mls/hr 07/27/25 12:25 07/30/25 08:57 Chloride IVPB Infused Q12HR CLARISSA Infusion Insulin Aspart 2 - 5 units 07/27/25 08:00 07/30/25 08:26 Insulin Aspart (*Bkc) 100 Units/Ml SUB-Q Not Given TIDWM [facility] Protocol Metoprolol Tartrate 25 mg 07/26/25 09:10 07/30/25 08:28 Metoprolol Tartrate 25 Mg Tablet PO 25 mg Q12HR CLARISSA Administration Non-Formulary Medication 0 mg 07/27/25 16:35 07/30/25 08:29 Finerenone [Kerendia] PO 08/26/25 16:34 10 mg QAM CLARISSA Administration Ondansetron HCl 4 mg 07/26/25 01:23 Ondansetron Inj 4 Mg/2 Ml Vial IV PUSH Q4H PRN Nausea Pantoprazole Sodium 40 mg 07/26/25 09:00 07/30/25 08:29 Pantoprazole 40 Mg Tablet PO 40 mg DAILY CLARISSA Administration Polyethylene Glycol 17 gm 07/28/25 09:00 07/30/25 08:27 Polyethylene Glycol 3350 17 Gm Powd.Pack PO 17 gm QAM CLARISSA Administration Rosuvastatin Calcium 40 mg 07/26/25 21:00 07/29/25 20:18 Rosuvastatin 20 Mg Tablet PO 40 mg QHS CLARISSA Administration Telmisartan 80 mg 07/27/25 09:00 07/28/25 08:59 Telmisartan 40 Mg Tablet PO 80 mg On Hold: 07/28/25 14:10 DAILY CLARISSA Administration Ticagrelor 60 mg 07/26/25 21:00 07/30/25 08:29 Ticagrelor 60 Mg Tablet PO 60 mg Q12HR CLARISSA Administration Vancomycin HCl 1 each 07/29/25 23:00 Vancomycin For Acute Kidney Injury IVPB PRN PRN Vancomycin Protocol Radiology Results: ITS Impressions Abdomen/Pelvis CT 07/26/25 17:51 IMPRESSION: 1. No acute findings on the CT examination. No bowel obstruction, free fluid or free air. 2. Abdominal aortic iliac stent grafts are in place. 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 The again left ventricular hypertrophy. 3. Postoperative changes of prostatectomy and penile implant placement. Renal Ultrasound 07/28/25 13:36 IMPRESSION: 1. No hydronephrosis. Labs Labs: Laboratory Results - last 24 hr 07/29/25 07/29/25 07/29/25 06:17 11:31 16:31 WBC RBC Hgb Hct MCV MCH MCHC RDW Plt Count MPV Immature Gran % (Auto) Neut % (Auto) Lymph % (Auto) [place] % (Auto) Eos % (Auto) Baso % (Auto) Lymph # (Auto) [place] # (Auto) Eos # (Auto) Baso # (Auto) Abs Immat Gran (auto) Absolute Neuts (auto) Absolute Nucleated RBC Nucleated RBC % Sodium Potassium Chloride Carbon Dioxide Anion Gap BUN Creatinine Estim Creat Clear Calc Estimated GFR Glucose POC Capillary Glucose 154 H 108 H Calcium Phosphorus Total Bilirubin AST ALT Alkaline Phosphatase Total Protein Albumin Vitamin D 25-Hydroxy 37.2 Ur Random Creatinine Ur Random Calcium Calcium/Creat Ratio 07/29/25 07/29/25 07/30/25 17:50 20:09 06:10 WBC 7.5 RBC 3.21 L Hgb 10.0 L Hct 30.9 L MCV 96.3 MCH 31.2 MCHC 32.4 RDW 14.1 Plt Count 182 MPV 10.8 H Immature Gran % (Auto) 1.2 H Neut % (Auto) 60.0 Lymph % (Auto) 23.3 [place] % (Auto) 10.2 H Eos % (Auto) 4.5 H Baso % (Auto) 0.8 Lymph # (Auto) 1.76 [place] # (Auto) 0.8 H Eos # (Auto) 0.3 Baso # (Auto) 0.1 Abs Immat Gran (auto) 0.09 H Absolute Neuts (auto) 4.5 Absolute Nucleated RBC 0.000 Nucleated RBC % 0.0 Sodium 136 L Potassium 4.4 Chloride 106 Carbon Dioxide 28 Anion Gap 2 L BUN 39 H Creatinine 2.28 H Estim Creat Clear Calc 25 Estimated GFR 28 L Glucose 148 H POC Capillary Glucose 188 H Calcium 10.3 H Phosphorus 3.4 Total Bilirubin 0.4 AST 46 ALT 44 Alkaline Phosphatase 86 Total Protein 7.0 Albumin 3.5 Vitamin D 25-Hydroxy Ur Random Creatinine Cancelled Ur Random Calcium Cancelled Calcium/Creat Ratio Cancelled 07/30/25 07:25 WBC RBC Hgb Hct MCV MCH MCHC RDW Plt Count MPV Immature Gran % (Auto) Neut % (Auto) Lymph % (Auto) [place] % (Auto) Eos % (Auto) Baso % (Auto) Lymph # (Auto) [place] # (Auto) Eos # (Auto) Baso # (Auto) Abs Immat Gran (auto) Absolute Neuts (auto) Absolute Nucleated RBC Nucleated RBC % Sodium Potassium Chloride Carbon Dioxide Anion Gap BUN Creatinine Estim Creat Clear Calc Estimated GFR Glucose POC Capillary Glucose 126 H Calcium Phosphorus Total Bilirubin AST ALT Alkaline Phosphatase Total Protein Albumin Vitamin D 25-Hydroxy Ur Random Creatinine Ur Random Calcium Calcium/Creat Ratio
--- NOTE | 2025-07-30 10:51 | P.PNUR_ITS ---
Progress Note: A&P Assessment and Plan (1) Urinary tract infection: Code(s): N39.0 - Urinary tract infection, site not specified Status: Acute (2) Urinary retention: Code(s): R33.9 - Retention of urine, unspecified Status: Acute (3) Status post implantation of artificial urinary sphincter: Code(s): Z96.0 - Presence of urogenital implants Status: Acute (4) Acute urinary retention: Code(s): R33.8 - Other retention of urine Status: Acute Plan Continue renal-dose Vancomycin to cover skin hay, continue Cefepime for GNR, final results pending Monitor PVRs Plan further evaluation as outpatient, revision of AUS Await final urine culture results, treat accordingly Monitor renal function, appreciate Nephrology consultation and recommendations Subjective Subjective Date/Time Seen: 07/30/25 10:51 Interval history: Mr. Freeman is a 74 year old male with history of prostate cancer sp RRP, adjuvant XRT, admitted with UTI, urinary retention due to AUS malfunction, now deactivitated, voiding spontaneously, serum creatinine rising, no evidence of hydronephrosis, urine culture growing GNR, results pending. Erythema over abdominal incision and scrotum resolved after dose of vancomycin. Review of Systems Review of Systems: All systems reviewed & are unremarkable except as noted in HPI and below Exam Const: General: comfortable and no acute distress Eyes: General: appearance normal, both eyes and all related structures EOM: EOMs intact bilaterally Resp: Effort & Inspection: normal respiratory effort GI: GI Palp: Yes Soft to palpation Other: Non tender, no distended, incision without erythema, mildly tender to palpation : General: Yes bladder normal to palpation Male General Exam: Yes normal external exam Other: No penile or scrotal erythema Scrotal pump with some retained fluid Objective Data Vital Signs Vital Signs: Vital Signs - 24 hr 07/29/25 10:59 07/29/25 11:11 07/29/25 12:00 Temperature Pulse Rate 87 Respiratory Rate Blood Pressure Pulse Oximetry Oxygen Delivery Room Air Room Air 07/29/25 14:00 07/29/25 16:00 07/29/25 20:00 Temperature 36.3 C L Pulse Rate 65 68 Respiratory Rate 16 Blood Pressure 106/40 L Pulse Oximetry 99 Oxygen Delivery Room Air 07/29/25 20:00 07/29/25 21:48 07/29/25 22:47 Temperature 36.2 C L Pulse Rate 70 73 Respiratory Rate 18 Blood Pressure 142/60 H Pulse Oximetry 99 99 Oxygen Delivery Room Air 07/30/25 00:00 07/30/25 04:00 07/30/25 06:00 Temperature 36.6 C Pulse Rate 69 65 61 Respiratory Rate 18 Blood Pressure 116/76 Pulse Oximetry 99 Oxygen Delivery 07/30/25 08:00 07/30/25 08:28 Temperature Pulse Rate 76 Respiratory Rate Blood Pressure Pulse Oximetry Oxygen Delivery Room Air Intake/Output Intake/Output: Intake & Output 07/27/25 07/28/25 07/29/25 07/30/25 23:59 23:59 23:59 23:59 Intake Total 1324 898 970 650 Balance 1324 898 970 650 Meds/Results Medications: Active Medications Generic Name Dose Route Start Last Admin Trade Name Freq PRN Reason Stop Dose Admin Acetaminophen 650 mg 07/26/25 01:23 07/30/25 06:26 Acetaminophen 325 Mg Tablet PO 650 mg Q4H PRN Administration Mild Pain (1-3) or Fever Allopurinol 300 mg 07/26/25 09:00 07/30/25 08:29 Allopurinol 300 Mg Tablet PO 300 mg DAILY CLARISSA Administration Alprazolam 0.5 mg 07/26/25 09:08 07/29/25 21:24 Alprazolam (*Crx) 0.5 Mg Tablet PO 0.5 mg TID PRN Administration Anxiety Amlodipine Besylate 5 mg 07/27/25 09:00 07/30/25 08:29 Amlodipine Besylate 5 Mg Tablet PO 5 mg DAILY CLARISSA Administration Aspirin 81 mg 07/26/25 09:00 07/30/25 08:29 Aspirin 81 Mg Enteric Tablet PO 81 mg DAILY CLARISSA Administration Chlorthalidone 25 mg 07/27/25 09:00 07/28/25 08:59 Chlorthalidone 25 Mg Tablet PO 25 mg On Hold: 07/28/25 14:11 DAILY CLARISSA Administration Dextrose 12.5 gm 07/26/25 22:47 Dextrose 50% 25 Gm/50 Ml Syringe IV PUSH PRN PRN Hypoglycemia Protocol Gabapentin 100 mg 07/26/25 09:00 07/30/25 08:29 Gabapentin 100 Mg Capsule PO 100 mg BID CLARISSA Administration Glucagon 1 mg 07/26/25 22:47 Glucagon For Inj 1 Mg Vial IM PRN PRN Hypoglycemia Protocol Glucose 15 gm 07/26/25 22:47 Glucose Oral Gel 15 Gm Of Glucse In 37.5 Gm Tube PO PRN PRN Hypoglycemia Protocol Dextrose 1,000 mls @ 100 mls/hr 07/26/25 22:47 Dextrose 5% 1,000 Ml IVPB PRN PRN Hypoglycemia Protocol Cefepime HCl 2 gm/ Sodium 50 mls @ 100 mls/hr 07/27/25 12:25 07/30/25 08:57 Chloride IVPB Infused Q12HR CLARISSA Infusion Insulin Aspart 2 - 5 units 07/27/25 08:00 07/30/25 08:26 Insulin Aspart (*Bkc) 100 Units/Ml SUB-Q Not Given TIDWM CLARISSA Protocol Metoprolol Tartrate 25 mg 07/26/25 09:10 07/30/25 08:28 Metoprolol Tartrate 25 Mg Tablet PO 25 mg Q12HR CLARISSA Administration Non-Formulary Medication 0 mg 07/27/25 16:35 07/30/25 08:29 Finerenone [Kerendia] PO 08/26/25 16:34 10 mg QAM CLARISSA Administration Ondansetron HCl 4 mg 07/26/25 01:23 Ondansetron Inj 4 Mg/2 Ml Vial IV PUSH Q4H PRN Nausea Pantoprazole Sodium 40 mg 07/26/25 09:00 07/30/25 08:29 Pantoprazole 40 Mg Tablet PO 40 mg DAILY CLARISSA Administration Polyethylene Glycol 17 gm 07/28/25 09:00 07/30/25 08:27 Polyethylene Glycol 3350 17 Gm Powd.Pack PO 17 gm QAM CLARISSA Administration Rosuvastatin Calcium 40 mg 07/26/25 21:00 07/29/25 20:18 Rosuvastatin 20 Mg Tablet PO 40 mg QHS CLARISSA Administration Telmisartan 80 mg 07/27/25 09:00 07/28/25 08:59 Telmisartan 40 Mg Tablet PO 80 mg On Hold: 07/28/25 14:10 DAILY CLARISSA Administration Ticagrelor 60 mg 07/26/25 21:00 07/30/25 08:29 Ticagrelor 60 Mg Tablet PO 60 mg Q12HR CLARISSA Administration Vancomycin HCl 1 each 07/29/25 23:00 Vancomycin For Acute Kidney Injury IVPB PRN PRN Vancomycin Protocol Radiology Results: ITS Impressions Renal Ultrasound 07/28/25 13:36 IMPRESSION: 1. No hydronephrosis. Labs Labs: Laboratory Results - last 24 hr 07/29/25 07/29/25 07/29/25 06:17 11:31 16:31 WBC RBC Hgb Hct MCV MCH MCHC RDW Plt Count MPV Immature Gran % (Auto) Neut % (Auto) Lymph % (Auto) [place] % (Auto) Eos % (Auto) Baso % (Auto) Lymph # (Auto) [place] # (Auto) Eos # (Auto) Baso # (Auto) Abs Immat Gran (auto) Absolute Neuts (auto) Absolute Nucleated RBC Nucleated RBC % Sodium Potassium Chloride Carbon Dioxide Anion Gap BUN Creatinine Estim Creat Clear Calc Estimated GFR Glucose POC Capillary Glucose 154 H 108 H Calcium Phosphorus Total Bilirubin AST ALT Alkaline Phosphatase Total Protein Albumin Vitamin D 25-Hydroxy 37.2 Ur Random Creatinine Ur Random Calcium Calcium/Creat Ratio 07/29/25 07/29/25 07/30/25 17:50 20:09 06:10 WBC 7.5 RBC 3.21 L Hgb 10.0 L Hct 30.9 L MCV 96.3 MCH 31.2 MCHC 32.4 RDW 14.1 Plt Count 182 MPV 10.8 H Immature Gran % (Auto) 1.2 H Neut % (Auto) 60.0 Lymph % (Auto) 23.3 [place] % (Auto) 10.2 H Eos % (Auto) 4.5 H Baso % (Auto) 0.8 Lymph # (Auto) 1.76 [place] # (Auto) 0.8 H Eos # (Auto) 0.3 Baso # (Auto) 0.1 Abs Immat Gran (auto) 0.09 H Absolute Neuts (auto) 4.5 Absolute Nucleated RBC 0.000 Nucleated RBC % 0.0 Sodium 136 L Potassium 4.4 Chloride 106 Carbon Dioxide 28 Anion Gap 2 L BUN 39 H Creatinine 2.28 H Estim Creat Clear Calc 25 Estimated GFR 28 L Glucose 148 H POC Capillary Glucose 188 H Calcium 10.3 H Phosphorus 3.4 Total Bilirubin 0.4 AST 46 ALT 44 Alkaline Phosphatase 86 Total Protein 7.0 Albumin 3.5 Vitamin D 25-Hydroxy Ur Random Creatinine Cancelled Ur Random Calcium Cancelled Calcium/Creat Ratio Cancelled 07/30/25 07:25 WBC RBC Hgb Hct MCV MCH MCHC RDW Plt Count MPV Immature Gran % (Auto) Neut % (Auto) Lymph % (Auto) [place] % (Auto) Eos % (Auto) Baso % (Auto) Lymph # (Auto) [place] # (Auto) Eos # (Auto) Baso # (Auto) Abs Immat Gran (auto) Absolute Neuts (auto) Absolute Nucleated RBC Nucleated RBC % Sodium Potassium Chloride Carbon Dioxide Anion Gap BUN Creatinine Estim Creat Clear Calc Estimated GFR Glucose POC Capillary Glucose 126 H Calcium Phosphorus Total Bilirubin AST ALT Alkaline Phosphatase Total Protein Albumin Vitamin D 25-Hydroxy Ur Random Creatinine Ur Random Calcium Calcium/Creat Ratio Quality Procedure note: The patient was prepped betadine and draped in sterile fashion. Cystoscopy is. Penile urethra appeared normal. The urethra appeared patent however the AUS was partially closed and to avoid trauma, the cystoscope was not passed further.. There was no evidence cuff erosion distally. The cystoscope was subsequently removed.
--- NOTE | 2025-07-30 15:59 | PC.NURSE ---
This RN called the exchange number to get ike of Dr. Chin in urology with the results of the bladder scan after the pts walk.
[2025-07-30] MEDS: ROSUVASTATIN 20 MG TABLET 40 MG PO (21:41)
[2025-07-30] MEDS: HYDROcodone/acetaminophen (*CRX) 5-325 MG TABLET 1 TAB PO (21:52)
[2025-07-30] MEDS: VANCOMYCIN 1,250 MG/NS 250 ML 1,250 MG/250 ML BAG 166.67 MG IVPB (23:35)
[2025-07-31] VITALS (11 sets, daily range): BP systolic 148–149; BP diastolic 42–47; PULSE 62–82; RESP 17–18; TEMP 36.3–36.7; O2SAT 97–100
[2025-07-31 05:44] LABS: Hematocrit 30.6 % (42.0-52.0); Hemoglobin 9.9 g/dL (14.0-18.0); Immature Granulocyte Percent A 1.6 % (0-0.5); Lymphocytes Absolute Auto 1.41 K/mm3 (0.9-3.2); Mean Corpuscular HGB Conc 32.4 g/dl (32-36); Mean Corpuscular Hemoglobin 31.4 pg (26-34); Mean Corpuscular Volume 97.1 fl (80-100); Nucleated Red Blood Cells Absolute Auto 0.000 K/mm3 (0.0-0.012); Nucleated Red Blood Cells Perc 0.0 % (0.0-0.2); Platelet Count Result 183 k/mm3 (150-375); Red Blood Count 3.15 M/mm3 (4.6-6.20); White Blood Count 6.4 K/mm3 (4.5-10.0)
[2025-07-31 06:10] LABS: Alanine Aminotransferase 39 U/L (6-50); Albumin Level 3.4 g/dL (3.5-5.1); Alkaline Phosphatase 91 U/L (38-126); Anion Gap 2 mmol/L (4-12); Aspartate Amino Transferase 33 U/L (17-59); Bilirubin,Total 0.4 mg/dL (0.2-1.3); Blood Urea Nitrogen 31 mg/dL (9-20); Calcium 10.5 mg/dL (8.4-10.2); Carbon Dioxide 28 mmol/L (22-30); Chloride 108 mmol/L (98-107); Estimated CRCL calculation 31 ml/min; Estimated Glomerular Filt Rate 36; Glucose 139 mg/dL (65-110); Potassium 4.7 mmol/L (3.4-5.0); Sodium 138 mmol/L (137-145); Total Protein 6.7 g/dL (6.3-8.2)
[2025-07-31] MEDS: HYDROcodone/acetaminophen (*CRX) 5-325 MG TABLET 1 TAB PO ×2 (06:10→17:00)
--- NOTE | 2025-07-31 07:36 | PC.NURSE ---
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 account liaison hospice checked for malfunctions and leads in correct locations on chest. Patient was asleep, asymptomatic, denies signs or symptoms of shortness of breath, confusion, fatigue or light-headed. Alix William, [employer] notified of bradycardic episode, requested oncoming nurse know about event and if pulse is less than 60 bpm when time to pass morning Metoprolol 25 mg PO to hold dose and let morning provider decide of dose needs to be decreased or change change dose from BID to once daily. Vital signs and patient stable at this that time, call light/ personal belongings with reach, bed in lowest position with fall precaution bed alarm on.
[2025-07-31] MEDS: PANTOPRAZOLE 40 MG TABLET PO (09:06)
[2025-07-31] MEDS: GABAPENTIN 100 MG CAPSULE PO ×2 (09:06→16:57)
[2025-07-31] MEDS: ASPIRIN 81 MG ENTERIC TABLET PO (09:06)
[2025-07-31] MEDS: METOPROLOL TARTRATE 25 MG TABLET PO ×2 (09:06→20:43)
[2025-07-31] MEDS: TICAGRELOR 60 MG TABLET PO ×2 (09:06→20:43)
[2025-07-31] MEDS: CEFEPIME 2 GM in SODIUM CHLORIDE 0.9% IV 50 ML 100 ML IVPB ×2 (09:08→20:43)
--- NOTE | 2025-07-31 09:22 | WPDUROPN2 ---
Progress Note: A&P Assessment and Plan (1) Urinary tract infection: Qualifiers: Urinary tract infection type: acute cystitis Hematuria presence: without hematuria Qualified Code(s): N30.00 - Acute cystitis without hematuria Code(s): N39.0 - Urinary tract infection, site not specified Status: Acute Assessment and Plan: - Continue renal-dose Vancomycin to cover skin hay, continue Cefepime for GNR - Preliminary UCx results back with gram negative bacilli; once final result available transition to culture driven Abx coverage (2) Urinary retention: Code(s): R33.9 - Retention of urine, unspecified Status: Acute Assessment and Plan: - Monitor with serial PVRs - AUS now deactivated and pt incontinent of urine confirmed with visualized stress incontinence with cough (Dr. Bhatia (07/27/2025) (3) Status post implantation of artificial urinary sphincter: Code(s): Z96.0 - Presence of urogenital implants Status: Acute Assessment and Plan: - AUS in deactivated state; maintain until pt follow up - Discussed with pt that he remain with [facility] until this is addressed - Will follow up with Dr. Meneses to discuss AUS revision Subjective Subjective Date/Time Seen: 07/31/25 09:22 Interval history: NAEO; pt resting comfortably in bed. Exam Const: General: comfortable and no acute distress Eyes: General: appearance normal, both eyes and all related structures EOM: EOMs intact bilaterally Resp: Effort & Inspection: normal respiratory effort GI: GI Palp: Yes Soft to palpation Other: Non tender, no distended, incision without erythema, mildly tender to palpation Objective Data Vital Signs Vital Signs: Vital Signs - 24 hr 07/30/25 12:00 07/30/25 13:25 07/30/25 16:00 Temperature 36.6 C Pulse Rate 69 75 72 Respiratory Rate 18 Blood Pressure 141/40 H Pulse Oximetry 99 Oxygen Delivery 07/30/25 20:01 07/30/25 21:41 07/30/25 21:54 Temperature Pulse Rate 63 70 Respiratory Rate Blood Pressure Pulse Oximetry 99 Oxygen Delivery Room Air 07/30/25 22:00 07/31/25 00:05 07/31/25 04:01 Temperature 36.1 C L Pulse Rate 66 64 62 Respiratory Rate 18 Blood Pressure 154/43 H Pulse Oximetry 100 Oxygen Delivery 07/31/25 06:00 07/31/25 09:06 Temperature 36.3 C L Pulse Rate 66 82 Respiratory Rate 18 Blood Pressure 148/47 H Pulse Oximetry 98 Oxygen Delivery Intake/Output Intake/Output: Intake & Output 07/28/25 07/29/25 07/30/25 07/31/25 23:59 23:59 23:59 23:59 Intake Total 102 378 2068 680 Balance 169 340 8108 680 Meds/Results Medications: Active Medications Generic Name Dose Route Start Last Admin Trade Name Freq PRN Reason Stop Dose Admin Acetaminophen 650 mg 07/26/25 01:23 07/30/25 16:10 Acetaminophen 325 Mg Tablet PO 650 mg Q4H PRN Administration Mild Pain (1-3) or Fever Hydrocodone Bitart/Acetaminophen 1 tab 07/30/25 21:36 07/31/25 06:10 Hydrocodone/Acetaminophen (*Crx) 5-325 Mg Tablet PO 1 tab Q4H PRN Administration Pain Rated 4-6 Allopurinol 300 mg 07/26/25 09:00 07/31/25 09:07 Allopurinol 300 Mg Tablet PO 300 mg DAILY CLARISSA Administration Alprazolam 0.5 mg 07/26/25 09:08 07/29/25 21:24 Alprazolam (*Crx) 0.5 Mg Tablet PO 0.5 mg TID PRN Administration Anxiety Amlodipine Besylate 5 mg 07/27/25 09:00 07/31/25 09:07 Amlodipine Besylate 5 Mg Tablet PO 5 mg DAILY CLARISSA Administration Aspirin 81 mg 07/26/25 09:00 07/31/25 09:06 Aspirin 81 Mg Enteric Tablet PO 81 mg DAILY CLARISSA Administration Chlorthalidone 25 mg 07/27/25 09:00 07/28/25 08:59 Chlorthalidone 25 Mg Tablet PO 25 mg On Hold: 07/28/25 14:11 DAILY CLARISSA Administration Dextrose 12.5 gm 07/26/25 22:47 Dextrose 50% 25 Gm/50 Ml Syringe IV PUSH PRN PRN Hypoglycemia Protocol Gabapentin 100 mg 07/26/25 09:00 07/31/25 09:06 Gabapentin 100 Mg Capsule PO 100 mg BID CLARISSA Administration Glucagon 1 mg 07/26/25 22:47 Glucagon For Inj 1 Mg Vial IM PRN PRN Hypoglycemia Protocol Glucose 15 gm 07/26/25 22:47 Glucose Oral Gel 15 Gm Of Glucse In 37.5 Gm Tube PO PRN PRN Hypoglycemia Protocol Dextrose 1,000 mls @ 100 mls/hr 07/26/25 22:47 Dextrose 5% 1,000 Ml IVPB PRN PRN Hypoglycemia Protocol Cefepime HCl 2 gm/ Sodium 50 mls @ 100 mls/hr 07/27/25 12:25 07/31/25 09:08 Chloride IVPB 100 mls/hr Q12HR CLARISSA Administration Insulin Aspart 2 - 5 units 07/27/25 08:00 07/31/25 09:02 Insulin Aspart (*Bkc) 100 Units/Ml SUB-Q Not Given TIDWM CLARISSA Protocol Metoprolol Tartrate 25 mg 07/26/25 09:10 07/31/25 09:06 Metoprolol Tartrate 25 Mg Tablet PO 25 mg Q12HR CLARISSA Administration Non-Formulary Medication 0 mg 07/27/25 16:35 07/31/25 09:10 Finerenone [Kerendia] PO 08/26/25 16:34 10 mg QAM CLARISSA Administration Ondansetron HCl 4 mg 07/26/25 01:23 Ondansetron Inj 4 Mg/2 Ml Vial IV PUSH Q4H PRN Nausea Pantoprazole Sodium 40 mg 07/26/25 09:00 07/31/25 09:06 Pantoprazole 40 Mg Tablet PO 40 mg DAILY CLARISSA Administration Polyethylene Glycol 17 gm 07/28/25 09:00 07/31/25 09:06 Polyethylene Glycol 3350 17 Gm Powd.Pack PO 17 gm QAM CLARISSA Administration Rosuvastatin Calcium 40 mg 07/26/25 21:00 07/30/25 21:41 Rosuvastatin 20 Mg Tablet PO 40 mg QHS CLARISSA Administration Telmisartan 80 mg 07/27/25 09:00 07/28/25 08:59 Telmisartan 40 Mg Tablet PO 80 mg On Hold: 07/28/25 14:10 DAILY CLARISSA Administration Ticagrelor 60 mg 07/26/25 21:00 07/31/25 09:06 Ticagrelor 60 Mg Tablet PO 60 mg Q12HR CLARISSA Administration Vancomycin HCl 1 each 07/29/25 23:00 Vancomycin For Acute Kidney Injury IVPB PRN PRN Vancomycin Protocol Radiology Results: ITS Impressions Renal Ultrasound 07/28/25 13:36 IMPRESSION: 1. No hydronephrosis. Abdomen/Pelvis CT 07/30/25 16:18 IMPRESSION: 1. Small sliding hiatal hernia. Labs Labs: Laboratory Results - last 24 hr 07/30/25 07/30/25 07/30/25 11:34 16:19 20:56 WBC RBC Hgb Hct MCV MCH MCHC RDW Plt Count MPV Immature Gran % (Auto) Neut % (Auto) Lymph % (Auto) [place] % (Auto) Eos % (Auto) Baso % (Auto) Lymph # (Auto) [place] # (Auto) Eos # (Auto) Baso # (Auto) Abs Immat Gran (auto) Absolute Neuts (auto) Absolute Nucleated RBC Nucleated RBC % Sodium Potassium Chloride Carbon Dioxide Anion Gap BUN Creatinine Estim Creat Clear Calc Estimated GFR Glucose POC Capillary Glucose 199 H 143 H 235 H Calcium Total Bilirubin AST ALT Alkaline Phosphatase Total Protein Albumin Random Vancomycin 07/30/25 07/31/25 07/31/25 21:50 04:59 07:26 WBC 6.4 RBC 3.15 L Hgb 9.9 L Hct 30.6 L MCV 97.1 MCH 31.4 MCHC 32.4 RDW 13.9 Plt Count 183 MPV 10.9 H Immature Gran % (Auto) 1.6 H Neut % (Auto) 60.3 Lymph % (Auto) 22.0 [place] % (Auto) 10.6 H Eos % (Auto) 5.0 H Baso % (Auto) 0.5 Lymph # (Auto) 1.41 [place] # (Auto) 0.7 H Eos # (Auto) 0.3 Baso # (Auto) 0.0 Abs Immat Gran (auto) 0.10 H Absolute Neuts (auto) 3.9 Absolute Nucleated RBC 0.000 Nucleated RBC % 0.0 Sodium 138 Potassium 4.7 Chloride 108 H Carbon Dioxide 28 Anion Gap 2 L BUN 31 H Creatinine 1.86 H Estim Creat Clear Calc 31 Estimated GFR 36 L Glucose 139 H POC Capillary Glucose 159 H Calcium 10.5 H Total Bilirubin 0.4 AST 33 ALT 39 Alkaline Phosphatase 91 Total Protein 6.7 Albumin 3.4 L Random Vancomycin 8.2 L
[2025-07-31 10:08] LABS: Calcium, Urine <0.8 mg/dL (Not Estab.)
--- NOTE | 2025-07-31 10:17 | P.PNIM_ITS ---
Assessment and Plan Assessment and Plan (1) Acute urinary tract infection: Code(s): N39.0 - Urinary tract infection, site not specified Status: Acute Assessment and Plan: f/u urine cultures, gram negative bacilli, follow for final ID and sensitivities s/p IV cipro in the ED avoid fluoroquinolones with patients history of aortic endografting started on IV ceftriaxone, change to IV cefepime wbc count improved, WNL today AM labs (2) Acute urinary retention: Code(s): R33.8 - Other retention of urine Status: Acute Assessment and Plan: patient has an implanted urinary sphincter device urology consulted and disabled the device patient is now incontinent of urine patient will need to follow up with Dr. Meneses outpatient for further discussion on next steps regarding his device patient with complaints of lower abdominal pain and tenderness on palpation st ill, CT abdomen and pelvis done yesterday without acute findings, it did show a good size bladder and stool throughout the colon patient encouraged to ambulate to help drainage of his bladder, I reinforced this as patient was char filter tank tender today on exam patient's creatinine belgica again today, discussed with Dr. Garibay, we will check another CT abdomen/pelvis without contrast to evaluate the size of the bladder. Discussed with nurse to have patient ambulate prior to CT to encourage bladder to empty. -- CT done and shows decompressed bladder Urology started patient on IV vancomycin last evening due to concern for skin infection with his AUS due to pain not improving (3) Malfunction of device: Code(s): T85.698A - Other mechanical complication of other specified internal prosthetic devices, implants and grafts, initial encounter Status: Acute Assessment and Plan: see above (4) Type 2 diabetes mellitus without complications: Code(s): E11.9 - Type 2 diabetes mellitus without complications Status: Chronic Assessment and Plan: hold home medications while inpatient accu checks avoid hypoglycemia SSI (5) Mixed hyperlipidemia: Code(s): E78.2 - Mixed hyperlipidemia Status: Chronic Assessment and Plan: continue statin (6) Hypertension: Qualifiers: Hypertension type: primary hypertension Qualified Code(s): I10 - Essential (primary) hypertension Code(s): I10 - Essential (primary) hypertension Status: Chronic Assessment and Plan: continue amlodipine continue metoprolol chlorthalidone on hold telmisartan on hold blood pressures reviewed and are stable (7) Acute kidney injury: Code(s): N17.9 - Acute kidney failure, unspecified Status: Acute Assessment and Plan: patients baseline creatinine appears to be between 1.4-1.6 creatinine 2.24 07/28, 2.06 07/29 and 2.28 today s/p renal ultrasound without acute findings nephrology following hold chlorthalidone and ARB additional testing per nephrology recommendations AM labs Subjective Date/time seen: 07/31/25 10:17 Interval history: Patient seen for a follow up visit. Patient sitting in bed, in no acute distress. Patient denies acute pain. Patient's CT abdomen/pelvis completed yesterday showed a decompressed bladder after ambulation. Continue IV vancomycin and IV cefepime. Urine culture still pending. Urology and nephrology following. Possible discharge home tomorrow on oral antibiotics if urine culture is final. Review of Systems Review of Systems: All systems reviewed & are unremarkable except as noted in HPI and below Exam Const: General: comfortable and no acute distress HENMT: Face/Nose/Sinus: Normal nares present Mouth: Yes moist mucous membranes Eyes: General: appearance normal, both eyes and all related structures Sclera: sclerae normal Neck: Neck: supple Resp: Effort & Inspection: normal respiratory effort Auscultation: clear to auscultation bilaterally Cardio: Rate: regular rate Rhythm: regular rhythm GI: Auscultation: normal bowel sounds Other: lower abdominal and suprapubic tenderness to palpation Skin: General skin exam: normal color and no rashes or lesions noted Neuro: Speech: normal speech Motor exam (neuro): 5/5 motor strength present throughout and Normal motor muscle tone present throughout Sensory Exam: normal sensation Extrem: General: normal to inspection Psych: Mental Status: mental status grossly normal Affect: normal affect Objective Data Vital Signs Vital Signs: Vital Signs - 24 hr 07/30/25 12:00 07/30/25 13:25 07/30/25 16:00 Temperature 97.9 F Pulse Rate 69 75 72 Respiratory Rate 18 Blood Pressure 141/40 H Pulse Oximetry 99 Oxygen Delivery 07/30/25 20:01 07/30/25 21:41 07/30/25 21:54 Temperature Pulse Rate 63 70 Respiratory Rate Blood Pressure Pulse Oximetry 99 Oxygen Delivery Room Air 07/30/25 22:00 07/31/25 00:05 07/31/25 04:01 Temperature 97.0 F L Pulse Rate 66 64 62 Respiratory Rate 18 Blood Pressure 154/43 H Pulse Oximetry 100 Oxygen Delivery 07/31/25 06:00 07/31/25 09:06 Temperature 97.4 F L Pulse Rate 66 82 Respiratory Rate 18 Blood Pressure 148/47 H Pulse Oximetry 98 Oxygen Delivery Intake/Output Intake/Output: Intake & Output 07/28/25 07/29/25 07/30/25 07/31/25 23:59 23:59 23:59 23:59 Intake Total 530 926 7688 680 Balance 350 076 0390 680 Meds/Results Medications: Active Medications Generic Name Dose Route Start Last Admin Trade Name Freq PRN Reason Stop Dose Admin Acetaminophen 650 mg 07/26/25 01:23 07/30/25 16:10 Acetaminophen 325 Mg Tablet PO 650 mg Q4H PRN Administration Mild Pain (1-3) or Fever Hydrocodone Bitart/Acetaminophen 1 tab 07/30/25 21:36 07/31/25 06:10 Hydrocodone/Acetaminophen (*Crx) 5-325 Mg Tablet PO 1 tab Q4H PRN Administration Pain Rated 4-6 Allopurinol 300 mg 07/26/25 09:00 07/31/25 09:07 Allopurinol 300 Mg Tablet PO 300 mg DAILY CLARISSA Administration Alprazolam 0.5 mg 07/26/25 09:08 07/29/25 21:24 Alprazolam (*Crx) 0.5 Mg Tablet PO 0.5 mg TID PRN Administration Anxiety Amlodipine Besylate 5 mg 07/27/25 09:00 07/31/25 09:07 Amlodipine Besylate 5 Mg Tablet PO 5 mg DAILY CLARISSA Administration Aspirin 81 mg 07/26/25 09:00 07/31/25 09:06 Aspirin 81 Mg Enteric Tablet PO 81 mg DAILY CLARISSA Administration Chlorthalidone 25 mg 07/27/25 09:00 07/28/25 08:59 Chlorthalidone 25 Mg Tablet PO 25 mg On Hold: 07/28/25 14:11 DAILY CLARISSA Administration Dextrose 12.5 gm 07/26/25 22:47 Dextrose 50% 25 Gm/50 Ml Syringe IV PUSH PRN PRN Hypoglycemia Protocol Gabapentin 100 mg 07/26/25 09:00 07/31/25 09:06 Gabapentin 100 Mg Capsule PO 100 mg BID CLARISSA Administration Glucagon 1 mg 07/26/25 22:47 Glucagon For Inj 1 Mg Vial IM PRN PRN Hypoglycemia Protocol Glucose 15 gm 07/26/25 22:47 Glucose Oral Gel 15 Gm Of Glucse In 37.5 Gm Tube PO PRN PRN Hypoglycemia Protocol Dextrose 1,000 mls @ 100 mls/hr 07/26/25 22:47 Dextrose 5% 1,000 Ml IVPB PRN PRN Hypoglycemia Protocol Cefepime HCl 2 gm/ Sodium 50 mls @ 100 mls/hr 07/27/25 12:25 07/31/25 09:08 Chloride IVPB 100 mls/hr Q12HR CLARISSA Administration Insulin Aspart 2 - 5 units 07/27/25 08:00 07/31/25 09:02 Insulin Aspart (*Bkc) 100 Units/Ml SUB-Q Not Given TIDWM CLARISSA Protocol Metoprolol Tartrate 25 mg 07/26/25 09:10 07/31/25 09:06 Metoprolol Tartrate 25 Mg Tablet PO 25 mg Q12HR CLARISSA Administration Non-Formulary Medication 0 mg 07/27/25 16:35 07/31/25 09:10 Finerenone [Kerendia] PO 08/26/25 16:34 10 mg QAM CLARISSA Administration Ondansetron HCl 4 mg 07/26/25 01:23 Ondansetron Inj 4 Mg/2 Ml Vial IV PUSH Q4H PRN Nausea Pantoprazole Sodium 40 mg 07/26/25 09:00 07/31/25 09:06 Pantoprazole 40 Mg Tablet PO 40 mg DAILY CLARISSA Administration Polyethylene Glycol 17 gm 07/28/25 09:00 07/31/25 09:06 Polyethylene Glycol 3350 17 Gm Powd.Pack PO 17 gm QAM CLARISSA Administration Rosuvastatin Calcium 40 mg 07/26/25 21:00 07/30/25 21:41 Rosuvastatin 20 Mg Tablet PO 40 mg QHS CLARISSA Administration Telmisartan 80 mg 07/27/25 09:00 07/28/25 08:59 Telmisartan 40 Mg Tablet PO 80 mg On Hold: 07/28/25 14:10 DAILY CLARISSA Administration Ticagrelor 60 mg 07/26/25 21:00 07/31/25 09:06 Ticagrelor 60 Mg Tablet PO 60 mg Q12HR CLARISSA Administration Vancomycin HCl 1 each 07/29/25 23:00 Vancomycin For Acute Kidney Injury IVPB PRN PRN Vancomycin Protocol Radiology Results: ITS Impressions Renal Ultrasound 07/28/25 13:36 IMPRESSION: 1. No hydronephrosis. Abdomen/Pelvis CT 07/30/25 16:18 IMPRESSION: 1. Small sliding hiatal hernia. Labs Labs: Laboratory Results - last 24 hr 07/29/25 07/30/25 07/30/25 17:49 11:34 16:19 WBC RBC Hgb Hct MCV MCH MCHC RDW Plt Count MPV Immature Gran % (Auto) Neut % (Auto) Lymph % (Auto) [place] % (Auto) Eos % (Auto) Baso % (Auto) Lymph # (Auto) [place] # (Auto) Eos # (Auto) Baso # (Auto) Abs Immat Gran (auto) Absolute Neuts (auto) Absolute Nucleated RBC Nucleated RBC % Sodium Potassium Chloride Carbon Dioxide Anion Gap BUN Creatinine Estim Creat Clear Calc Estimated GFR Glucose POC Capillary Glucose 199 H 143 H Calcium Total Bilirubin AST ALT Alkaline Phosphatase Total Protein Albumin Ur Random Creatinine 103.9 Urine Calcium <0.8 Calcium/Creat Ratio <8 L Random Vancomycin 07/30/25 07/30/25 07/31/25 20:56 21:50 04:59 WBC 6.4 RBC 3.15 L Hgb 9.9 L Hct 30.6 L MCV 97.1 MCH 31.4 MCHC 32.4 RDW 13.9 Plt Count 183 MPV 10.9 H Immature Gran % (Auto) 1.6 H Neut % (Auto) 60.3 Lymph % (Auto) 22.0 [place] % (Auto) 10.6 H Eos % (Auto) 5.0 H Baso % (Auto) 0.5 Lymph # (Auto) 1.41 [place] # (Auto) 0.7 H Eos # (Auto) 0.3 Baso # (Auto) 0.0 Abs Immat Gran (auto) 0.10 H Absolute Neuts (auto) 3.9 Absolute Nucleated RBC 0.000 Nucleated RBC % 0.0 Sodium 138 Potassium 4.7 Chloride 108 H Carbon Dioxide 28 Anion Gap 2 L BUN 31 H Creatinine 1.86 H Estim Creat Clear Calc 31 Estimated GFR 36 L Glucose 139 H POC Capillary Glucose 235 H Calcium 10.5 H Total Bilirubin 0.4 AST 33 ALT 39 Alkaline Phosphatase 91 Total Protein 6.7 Albumin 3.4 L Ur Random Creatinine Urine Calcium Calcium/Creat Ratio Random Vancomycin 8.2 L 07/31/25 07:26 WBC RBC Hgb Hct MCV MCH MCHC RDW Plt Count MPV Immature Gran % (Auto) Neut % (Auto) Lymph % (Auto) [place] % (Auto) Eos % (Auto) Baso % (Auto) Lymph # (Auto) [place] # (Auto) Eos # (Auto) Baso # (Auto) Abs Immat Gran (auto) Absolute Neuts (auto) Absolute Nucleated RBC Nucleated RBC % Sodium Potassium Chloride Carbon Dioxide Anion Gap BUN Creatinine Estim Creat Clear Calc Estimated GFR Glucose POC Capillary Glucose 159 H Calcium Total Bilirubin AST ALT Alkaline Phosphatase Total Protein Albumin Ur Random Creatinine Urine Calcium Calcium/Creat Ratio Random Vancomycin Quality VTE Prophylaxis VTE prophylaxis: mechanical ordered
[2025-07-31 11:08] LABS: ACE 27 U/L (14-82)
--- NOTE | 2025-07-31 11:32 | P.PNNP_ITS ---
Progress Note: A&P Assessment and Plan (1) Acute kidney injury: Code(s): N17.9 - Acute kidney failure, unspecified Status: Acute Assessment and Plan: * improving once again... * as noted by labs on 07/28 (creatinine up to 2.34mg/dL) * creatinine at baseline on admission * suspect multifactorial etiology: * contrast exposure (CT scan on 07/26) * urinary tract infection * concurrent ARB and diuretic use * possibly fluctuating urnary retention * other(?) * evaluation to date noted: * renal ultrasound shows no hydro * CT scan of A/P x 2 without any acute pathology * UA suggestive of infection (culture with GNB) * urine eosinophils negative * urine electrolytes non-prerenal * follow trend of repeat labs and UOP (2) Stage 3 chronic kidney disease: Code(s): N18.30 - Chronic kidney disease, stage 3 unspecified Status: Chronic Assessment and Plan: * baseline creatinine runs around 1.4 - 1.8mg/dl * this causes him to fluctuate between CKD stage 3A and 3B * felt to be secondary to hypertension, diabetes, vascular disease, and age- related change (based on outpatient evaluation) (3) Urinary retention: Code(s): R33.9 - Retention of urine, unspecified Status: Acute Assessment and Plan: * though to be secondary to AUS dysfunction * Urology following with interventions noted * continue supportive therapy (4) Urinary tract infection: Qualifiers: Urinary tract infection type: acute cystitis Hematuria presence: w ithout hematuria Qualified Code(s): N30.00 - Acute cystitis without hematuria Code(s): N39.0 - Urinary tract infection, site not specified Status: Acute Assessment and Plan: * as suggested by admission UA * urine culture with GNB * on antibiotics (5) Hypertension: Qualifiers: Hypertension type: primary hypertension Qualified Code(s): I10 - Essential (primary) hypertension Code(s): I10 - Essential (primary) hypertension Status: Chronic Assessment and Plan: * reasonable control * follow closely since ARB and chlorthalidone placed on hold due to #1 * follow trend of hemodynamics (6) Diabetes mellitus: Qualifiers: Diabetes mellitus type: type 2 Diabetes mellitus intermediate accountant insulin use: without intermediate accountant use Diabetes mellitus complication status: with other specified complication Qualified Code(s): E11.69 - Type 2 diabetes mellitus with other specified complication Code(s): E11.9 - Type 2 diabetes mellitus without complications Status: Chronic Assessment and Plan: * follow accu-cheks * glyemic control per hospitalist Will continue to follow. L Subjective Date/time seen: 07/31/25 11:32 Interval history: Follow-up for acute kidney injury/acute renal failure on chronic kidney disease. Chart reviewed since last seen -- transient worsening of renal function/creatinine yesterday but improvement noted by labs done today; s/p bedside cystoscopy yesterday noting the AUS was partially closed; no apparent distress noted at the time of my visit. Exam 2 Narrative: General: elderly but WD/WN male in NAD Heart: normal S1 and S2; no rub Lungs: clear to auscultation Abdomen: soft, nontender, nondistended, positive bowel sounds Extremities: no cyanosis or clubbing; no edema Skin: warm and dry Objective Data Vital Signs Vital Signs: Vital Signs Temp Pulse Resp BP Pulse Ox O2 Del Method 07/31/25 11:20 76 07/31/25 09:06 82 07/31/25 08:00 78 07/31/25 06:00 97.4 F L 66 18 148/47 H 98 07/31/25 04:01 62 07/31/25 00:05 64 07/30/25 22:00 97.0 F L 66 18 154/43 H 100 07/30/25 21:54 99 Room Air 07/30/25 21:41 70 07/30/25 20:01 63 Intake/Output Intake/Output: Intake & Output 07/28/25 07/29/25 07/30/25 07/31/25 23:59 23:59 23:59 23:59 Intake Total 319 306 3543 1160 Balance 908 631 9528 1160 Meds/Results Medications: Active Medications Generic Name Dose Route Start Last Admin Trade Name Freq PRN Reason Stop Dose Admin Acetaminophen 650 mg 07/26/25 01:23 07/30/25 16:10 Acetaminophen 325 Mg Tablet PO 650 mg Q4H PRN Administration Mild Pain (1-3) or Fever Hydrocodone Bitart/Acetaminophen 1 tab 07/30/25 21:36 07/31/25 17:00 Hydrocodone/Acetaminophen (*Crx) 5-325 Mg Tablet PO 1 tab Q4H PRN Administration Pain Rated 4-6 Allopurinol 300 mg 07/26/25 09:00 07/31/25 09:07 Allopurinol 300 Mg Tablet PO 300 mg DAILY CLARISSA Administration Alprazolam 0.5 mg 07/26/25 09:08 07/29/25 21:24 Alprazolam (*Crx) 0.5 Mg Tablet PO 0.5 mg TID PRN Administration Anxiety Amlodipine Besylate 5 mg 07/27/25 09:00 07/31/25 09:07 Amlodipine Besylate 5 Mg Tablet PO 5 mg DAILY CLARISSA Administration Aspirin 81 mg 07/26/25 09:00 07/31/25 09:06 Aspirin 81 Mg Enteric Tablet PO 81 mg DAILY CLARISSA Administration Chlorthalidone 25 mg 07/27/25 09:00 07/28/25 08:59 Chlorthalidone 25 Mg Tablet PO 25 mg On Hold: 07/28/25 14:11 DAILY CLARISSA Administration Dextrose 12.5 gm 07/26/25 22:47 Dextrose 50% 25 Gm/50 Ml Syringe IV PUSH PRN PRN Hypoglycemia Protocol Gabapentin 100 mg 07/26/25 09:00 07/31/25 16:57 Gabapentin 100 Mg Capsule PO 100 mg BID CLARISSA Administration Glucagon 1 mg 07/26/25 22:47 Glucagon For Inj 1 Mg Vial IM PRN PRN Hypoglycemia Protocol Glucose 15 gm 07/26/25 22:47 Glucose Oral Gel 15 Gm Of Glucse In 37.5 Gm Tube PO PRN PRN Hypoglycemia Protocol Dextrose 1,000 mls @ 100 mls/hr 07/26/25 22:47 Dextrose 5% 1,000 Ml IVPB PRN PRN Hypoglycemia Protocol Cefepime HCl 2 gm/ Sodium 50 mls @ 100 mls/hr 07/27/25 12:25 07/31/25 09:08 Chloride IVPB 100 mls/hr Q12HR CLARISSA Administration Insulin Aspart 2 - 5 units 07/27/25 08:00 07/31/25 16:56 Insulin Aspart (*Bkc) 100 Units/Ml SUB-Q Not Given TIDWM CLARISSA Protocol Metoprolol Tartrate 25 mg 07/26/25 09:10 07/31/25 09:06 Metoprolol Tartrate 25 Mg Tablet PO 25 mg Q12HR CLARISSA Administration Non-Formulary Medication 0 mg 07/27/25 16:35 07/31/25 09:10 Finerenone [Kerendia] PO 08/26/25 16:34 10 mg QAM CLARISSA Administration Ondansetron HCl 4 mg 07/26/25 01:23 Ondansetron Inj 4 Mg/2 Ml Vial IV PUSH Q4H PRN Nausea Pantoprazole Sodium 40 mg 07/26/25 09:00 07/31/25 09:06 Pantoprazole 40 Mg Tablet PO 40 mg DAILY CLARISSA Administration Polyethylene Glycol 17 gm 07/28/25 09:00 07/31/25 09:06 Polyethylene Glycol 3350 17 Gm Powd.Pack PO 17 gm QAM CLARISSA Administration Rosuvastatin Calcium 40 mg 07/26/25 21:00 07/30/25 21:41 Rosuvastatin 20 Mg Tablet PO 40 mg QHS CLARISSA Administration Telmisartan 80 mg 07/27/25 09:00 07/28/25 08:59 Telmisartan 40 Mg Tablet PO 80 mg On Hold: 07/28/25 14:10 DAILY CLARISSA Administration Ticagrelor 60 mg 07/26/25 21:00 07/31/25 09:06 Ticagrelor 60 Mg Tablet PO 60 mg Q12HR CLARISSA Administration Vancomycin HCl 1 each 07/29/25 23:00 Vancomycin For Acute Kidney Injury IVPB PRN PRN Vancomycin Protocol Radiology Results: ITS Impressions Renal Ultrasound 07/28/25 13:36 IMPRESSION: 1. No hydronephrosis. Abdomen/Pelvis CT 07/30/25 16:18 IMPRESSION: 1. Small sliding hiatal hernia. Labs Labs: Laboratory Tests 07/31/25 04:59 07/31/25 04:59 Calcium 10.5 H Total Bilirubin 0.4 AST 33 ALT 39 Alkaline Phosphatase 91 Total Protein 6.7 Albumin 3.4 L Microbiology 07/25/25 23:47 Unspecified Urine - Preliminary Gram negative bacilli isolated
[2025-07-31] MEDS: INSULIN ASPART (*BKC) 100 UNITS/ML SUB-Q ×2 (12:02→22:00)
[2025-07-31] MEDS: ROSUVASTATIN 20 MG TABLET 40 MG PO (20:43)
[2025-07-31] MEDS: ALPRAZolam (*CRX) 0.5 MG TABLET PO (22:00)
[2025-07-31] MEDS: VANCOMYCIN 1,250 MG/NS 250 ML 1,250 MG/250 ML BAG 167 MG IVPB (23:52)
[2025-08-01] VITALS: PULSE 63
--- NOTE | 2025-08-01 02:10 | PC.NURSE ---
LMOM with Patient Advocate. Patient is wanting to discuss bedside cystoscopy from 07/30 with her.
[2025-08-01 04:00] VITALS: PULSE 63
[2025-08-01 05:46] LABS: Hematocrit 33.5 % (42.0-52.0); Hemoglobin 10.6 g/dL (14.0-18.0); Immature Granulocyte Percent A 1.1 % (0-0.5); Lymphocytes Absolute Auto 2.08 K/mm3 (0.9-3.2); Mean Corpuscular HGB Conc 31.6 g/dl (32-36); Mean Corpuscular Hemoglobin 30.4 pg (26-34); Mean Corpuscular Volume 96.0 fl (80-100); Nucleated Red Blood Cells Absolute Auto 0.000 K/mm3 (0.0-0.012); Nucleated Red Blood Cells Perc 0.0 % (0.0-0.2); Platelet Count Result 226 k/mm3 (150-375); Red Blood Count 3.49 M/mm3 (4.6-6.20); White Blood Count 8.8 K/mm3 (4.5-10.0)
[2025-08-01 06:00] VITALS: BP 137/41; PULSE 67; RESP 18; TEMP 36.6; O2SAT 100
[2025-08-01 06:06] LABS: Albumin Level 3.8 g/dL (3.5-5.1); Anion Gap 3 mmol/L (4-12); Blood Urea Nitrogen 30 mg/dL (9-20); Calcium 11.0 mg/dL (8.4-10.2); Carbon Dioxide 29 mmol/L (22-30); Chloride 106 mmol/L (98-107); Estimated CRCL calculation 32 ml/min; Estimated Glomerular Filt Rate 38; Glucose 137 mg/dL (65-110); Potassium 4.8 mmol/L (3.4-5.0); Sodium 138 mmol/L (137-145)
[2025-08-01 08:00] VITALS: PULSE 80
[2025-08-01] MEDS: CEFEPIME 2 GM in SODIUM CHLORIDE 0.9% IV 50 ML 100 ML IVPB (09:11)
[2025-08-01] MEDS: ASPIRIN 81 MG ENTERIC TABLET PO (09:12)
[2025-08-01] MEDS: ACETAMINOPHEN 325 MG TABLET 650 MG PO (09:12)
[2025-08-01 09:15] VITALS: PULSE 76
[2025-08-01] MEDS: METOPROLOL TARTRATE 25 MG TABLET PO (09:15)
[2025-08-01] MEDS: GABAPENTIN 100 MG CAPSULE PO (09:15)
[2025-08-01] MEDS: PANTOPRAZOLE 40 MG TABLET PO (09:21)
[2025-08-01] MEDS: TICAGRELOR 60 MG TABLET PO (09:22)
--- NOTE | 2025-08-01 09:55 | P.PNUR_ITS ---
Progress Note: A&P Assessment and Plan (1) Urinary tract infection: Qualifiers: Urinary tract infection type: acute cystitis Hematuria presence: without hematuria Qualified Code(s): N30.00 - Acute cystitis without hematuria Code(s): N39.0 - Urinary tract infection, site not specified Status: Acute Assessment and Plan: - UCx resulted with Klebsiella pneumoniae - May transition to PO Bactrim DS x 7 days (2) Urinary retention: Code(s): R33.9 - Retention of urine, unspecified Status: Acute Assessment and Plan: - Monitor with serial PVRs - AUS now deactivated and pt incontinent of urine confirmed with visualized stress incontinence with cough (Dr. Bhatia 07/27/2025) (3) Status post implantation of artificial urinary sphincter: Code(s): Z96.0 - Presence of urogenital implants Status: Acute Assessment and Plan: - AUS in deactivated state; maintain until pt follow up - Discussed with pt that he remain with [facility] until this is addressed - Will follow up with Dr. Meneses to discuss AUS revision (4) Testicular pain: Qualifiers: Laterality: left Qualified Code(s): N50.812 - Left testicular pain Code(s): N50.819 - Testicular pain, unspecified Status: Acute Assessment and Plan: - Chronic appearing condition - No appreciable abnormalities on exam; scrotal US via USL completed 05/2025 without identifiable source of pain - Recommend scrotal elevation, supportive briefs and NSAIDs PRN; further management as outpatient Plan Appropriate for discharge from urology perspective; will follow peripherally until that time Subjective Subjective Date/Time Seen: 08/01/25 09:55 Interval history: NAEO; resting comfortably in chair. Reporting some scrotal redness and Left testicular discomfort. States the testicular pain is a chronic issue which he has been seen for in outpatient setting before. Exam Const: General: comfortable and no acute distress Eyes: General: appearance normal, both eyes and all related structures EOM: EOMs intact bilaterally Resp: Effort & Inspection: normal respiratory effort GI: GI Palp: Yes Soft to palpation Other: Non tender, no distended, incision without erythema, mildly tender to palpation : Other: No significant scrotal erythema; TTP of the Left testicle. No masses BL; AUS pump in place in scrotum deactivated Objective Data Vital Signs Vital Signs: Vital Signs - 24 hr 07/31/25 12:00 07/31/25 13:48 07/31/25 16:00 Temperature 36.4 C L Pulse Rate 76 69 70 Respiratory Rate 17 Blood Pressure 148/42 H Pulse Oximetry 97 Oxygen Delivery 07/31/25 20:00 07/31/25 20:00 07/31/25 20:43 Temperature Pulse Rate 71 62 71 Respiratory Rate 17 Blood Pressure Pulse Oximetry 97 Oxygen Delivery Room Air 07/31/25 22:03 08/01/25 00:00 08/01/25 04:00 Temperature 36.7 C Pulse Rate 72 63 63 Respiratory Rate 18 Blood Pressure 149/46 H Pulse Oximetry 100 Oxygen Delivery 08/01/25 06:00 08/01/25 09:15 Temperature 36.6 C Pulse Rate 67 76 Respiratory Rate 18 Blood Pressure 137/41 L Pulse Oximetry 100 Oxygen Delivery Intake/Output Intake/Output: Intake & Output 07/29/25 07/30/25 07/31/25 08/01/25 23:59 23:59 23:59 23:59 Intake Total 970 1390 1260 950 Balance 970 1390 1260 950 Meds/Results Medications: Active Medications Generic Name Dose Route Start Last Admin Trade Name Freq PRN Reason Stop Dose Admin Acetaminophen 650 mg 07/26/25 01:23 08/01/25 09:12 Acetaminophen 325 Mg Tablet PO 650 mg Q4H PRN Administration Mild Pain (1-3) or Fever Hydrocodone Bitart/Acetaminophen 1 tab 07/30/25 21:36 07/31/25 17:00 Hydrocodone/Acetaminophen (*Crx) 5-325 Mg Tablet PO 1 tab Q4H PRN Administration Pain Rated 4-6 Allopurinol 300 mg 07/26/25 09:00 08/01/25 09:15 Allopurinol 300 Mg Tablet PO 300 mg DAILY CLARISSA Administration Alprazolam 0.5 mg 07/26/25 09:08 07/31/25 22:00 Alprazolam (*Crx) 0.5 Mg Tablet PO 0.5 mg TID PRN Administration Anxiety Amlodipine Besylate 5 mg 07/27/25 09:00 08/01/25 09:15 Amlodipine Besylate 5 Mg Tablet PO 5 mg DAILY CLARISSA Administration Aspirin 81 mg 07/26/25 09:00 08/01/25 09:12 Aspirin 81 Mg Enteric Tablet PO 81 mg DAILY CLARISSA Administration Chlorthalidone 25 mg 07/27/25 09:00 07/28/25 08:59 Chlorthalidone 25 Mg Tablet PO 25 mg On Hold: 07/28/25 14:11 DAILY CLARISSA Administration Dextrose 12.5 gm 07/26/25 22:47 Dextrose 50% 25 Gm/50 Ml Syringe IV PUSH PRN PRN Hypoglycemia Protocol Gabapentin 100 mg 07/26/25 09:00 08/01/25 09:15 Gabapentin 100 Mg Capsule PO 100 mg BID CLARISSA Administration Glucagon 1 mg 07/26/25 22:47 Glucagon For Inj 1 Mg Vial IM PRN PRN Hypoglycemia Protocol Glucose 15 gm 07/26/25 22:47 Glucose Oral Gel 15 Gm Of Glucse In 37.5 Gm Tube PO PRN PRN Hypoglycemia Protocol Dextrose 1,000 mls @ 100 mls/hr 07/26/25 22:47 Dextrose 5% 1,000 Ml IVPB PRN PRN Hypoglycemia Protocol Cefepime HCl 2 gm/ Sodium 50 mls @ 100 mls/hr 07/27/25 12:25 08/01/25 09:11 Chloride IVPB 100 mls/hr Q12HR CLARISSA Administration Insulin Aspart 2 - 5 units 07/27/25 08:00 07/31/25 16:56 Insulin Aspart (*Bkc) 100 Units/Ml SUB-Q Not Given TIDWM CLARISSA Protocol Metoprolol Tartrate 25 mg 07/26/25 09:10 08/01/25 09:15 Metoprolol Tartrate 25 Mg Tablet PO 25 mg Q12HR CLARISSA Administration Non-Formulary Medication 0 mg 07/27/25 16:35 08/01/25 09:17 Finerenone [Kerendia] PO 08/26/25 16:34 10 mg QAM CLARISSA Administration Ondansetron HCl 4 mg 07/26/25 01:23 Ondansetron Inj 4 Mg/2 Ml Vial IV PUSH Q4H PRN Nausea Pantoprazole Sodium 40 mg 07/26/25 09:00 08/01/25 09:21 Pantoprazole 40 Mg Tablet PO 40 mg DAILY CLARISSA Administration Polyethylene Glycol 17 gm 07/28/25 09:00 08/01/25 09:11 Polyethylene Glycol 3350 17 Gm Powd.Pack PO 17 gm QAM CLARISSA Administration Rosuvastatin Calcium 40 mg 07/26/25 21:00 07/31/25 20:43 Rosuvastatin 20 Mg Tablet PO 40 mg QHS CLARISSA Administration Telmisartan 80 mg 07/27/25 09:00 07/28/25 08:59 Telmisartan 40 Mg Tablet PO 80 mg On Hold: 07/28/25 14:10 DAILY CLARISSA Administration Ticagrelor 60 mg 07/26/25 21:00 08/01/25 09:22 Ticagrelor 60 Mg Tablet PO 60 mg Q12HR CLARISSA Administration Vancomycin HCl 1 each 07/29/25 23:00 Vancomycin For Acute Kidney Injury IVPB PRN PRN Vancomycin Protocol Radiology Results: ITS Impressions Renal Ultrasound 07/28/25 13:36 IMPRESSION: 1. No hydronephrosis. Abdomen/Pelvis CT 07/30/25 16:18 IMPRESSION: 1. Small sliding hiatal hernia. Labs Labs: Laboratory Results - last 24 hr 07/29/25 07/29/25 07/31/25 10:43 17:49 11:29 WBC RBC Hgb Hct MCV MCH MCHC RDW Plt Count MPV Immature Gran % (Auto) Neut % (Auto) Lymph % (Auto) [place] % (Auto) Eos % (Auto) Baso % (Auto) Lymph # (Auto) [place] # (Auto) Eos # (Auto) Baso # (Auto) Abs Immat Gran (auto) Absolute Neuts (auto) Absolute Nucleated RBC Nucleated RBC % Sodium Potassium Chloride Carbon Dioxide Anion Gap BUN Creatinine Estim Creat Clear Calc Estimated GFR Glucose POC Capillary Glucose 285 H Calcium Phosphorus Albumin Angiotensin Convert Enz 27 Ur Random Creatinine 103.9 Urine Calcium <0.8 Calcium/Creat Ratio <8 L Random Vancomycin 07/31/25 07/31/25 07/31/25 16:25 21:17 21:58 WBC RBC Hgb Hct MCV MCH MCHC RDW Plt Count MPV Immature Gran % (Auto) Neut % (Auto) Lymph % (Auto) [place] % (Auto) Eos % (Auto) Baso % (Auto) Lymph # (Auto) [place] # (Auto) Eos # (Auto) Baso # (Auto) Abs Immat Gran (auto) Absolute Neuts (auto) Absolute Nucleated RBC Nucleated RBC % Sodium Potassium Chloride Carbon Dioxide Anion Gap BUN Creatinine Estim Creat Clear Calc Estimated GFR Glucose POC Capillary Glucose 122 H 229 H Calcium Phosphorus Albumin Angiotensin Convert Enz Ur Random Creatinine Urine Calcium Calcium/Creat Ratio Random Vancomycin .7 08/01/25 08/01/25 05:02 07:57 WBC 8.8 RBC 3.49 L Hgb 10.6 L Hct 33.5 L MCV 96.0 MCH 30.4 MCHC 31.6 L RDW 14.0 Plt Count 226 MPV 10.8 H Immature Gran % (Auto) 1.1 H Neut % (Auto) 61.3 Lymph % (Auto) 23.6 [place] % (Auto) 9.0 H Eos % (Auto) 4.2 Baso % (Auto) 0.8 Lymph # (Auto) 2.08 [place] # (Auto) 0.8 H Eos # (Auto) 0.4 H Baso # (Auto) 0.1 Abs Immat Gran (auto) 0.10 H Absolute Neuts (auto) 5.4 Absolute Nucleated RBC 0.000 Nucleated RBC % 0.0 Sodium 138 Potassium 4.8 Chloride 106 Carbon Dioxide 29 Anion Gap 3 L BUN 30 H Creatinine 1.75 H Estim Creat Clear Calc 32 Estimated GFR 38 L Glucose 137 H POC Capillary Glucose 137 H Calcium 11.0 H Phosphorus 3.3 Albumin 3.8 Angiotensin Convert Enz Ur Random Creatinine Urine Calcium Calcium/Creat Ratio Random Vancomycin
--- NOTE | 2025-08-01 10:17 | PCNWS ---
Weekly nutritional screen. Patient is tolerating current regular diet with adequate intake 100% of meals. No weight loss reported. No nutritional recommendations at this time.
--- NOTE | 2025-08-01 10:45 | P.PNNP_ITS ---
Progress Note: A&P Assessment and Plan (1) Acute kidney injury: Code(s): N17.9 - Acute kidney failure, unspecified Status: Acute Assessment and Plan: * improving if not back to baseline * as noted by labs on 07/28 (creatinine up to 2.34mg/dL) * creatinine at baseline on admission * suspect multifactorial etiology: * contrast exposure (CT scan on 07/26) * urinary tract infection * concurrent ARB and diuretic use * possibly fluctuating urnary retention * other(?) * evaluation to date noted: * renal ultrasound shows no hydro * CT scan of A/P x 2 without any acute pathology * UA suggestive of infection (culture with GNB) * urine eosinophils negative * urine electrolytes non-prerenal * follow trend of repeat labs and UOP (2) Stage 3 chronic kidney disease: Code(s): N18.30 - Chronic kidney disease, stage 3 unspecified Status: Chronic Assessment and Plan: * baseline creatinine runs around 1.4 - 1.8mg/dl * this causes him to fluctuate between CKD stage 3A and 3B * felt to be secondary to hypertension, diabetes, vascular disease, and age- related change (based on outpatient evaluation) (3) Urinary retention: Code(s): R33.9 - Retention of urine, unspecified Status: Acute Assessment and Plan: * though to be secondary to AUS dysfunction * Urology following with interventions noted * continue supportive therapy (4) Urinary tract infection: Qualifiers: Urinary tract infection type: acute cystitis Hematuria presence: w ithout hematuria Qualified Code(s): N30.00 - Acute cystitis without hematuria Code(s): N39.0 - Urinary tract infection, site not specified Status: Acute Assessment and Plan: * as suggested by admission UA * urine culture with Klebsiella * on antibiotics (5) Hypertension: Qualifiers: Hypertension type: primary hypertension Qualified Code(s): I10 - Essential (primary) hypertension Code(s): I10 - Essential (primary) hypertension Status: Chronic Assessment and Plan: * reasonable control * follow closely since ARB and chlorthalidone placed on hold due to #1 * follow trend of hemodynamics (6) Diabetes mellitus: Qualifiers: Diabetes mellitus type: type 2 Diabetes mellitus terminal clerk insulin use: without terminal clerk use Diabetes mellitus complication status: with other specified complication Qualified Code(s): E11.69 - Type 2 diabetes mellitus with other specified complication Code(s): E11.9 - Type 2 diabetes mellitus without complications Status: Chronic Assessment and Plan: * follow accu-cheks * glyemic control per hospitalist Will continue to follow. L Subjective Date/time seen: 08/01/25 10:45 Interval history: Follow-up for acute kidney injury/acute renal failure on chronic kidney disease. Renal function/creatinine continues to improve if not back to baseline by trend of labs; no apparent distress noted on my visit with him today; feels reasonably well; hoping for possible discharge today. Exam 2 Narrative: General: elderly but WD/WN male in NAD Heart: normal S1 and S2; no rub Lungs: clear to auscultation Abdomen: soft, nontender, nondistended, positive bowel sounds Extremities: no cyanosis or clubbing; no edema Skin: warm and intact Objective Data Vital Signs Vital Signs: Vital Signs Temp Pulse Resp BP Pulse Ox O2 Del Method 08/01/25 09:15 76 08/01/25 08:00 80 08/01/25 06:00 97.9 F 67 18 137/41 L 100 08/01/25 04:00 63 08/01/25 00:00 63 07/31/25 22:03 98.0 F 72 18 149/46 H 100 07/31/25 20:43 71 07/31/25 20:00 62 07/31/25 20:00 71 17 97 Room Air 07/31/25 16:00 70 07/31/25 13:48 97.5 F L 69 17 148/42 H 97 Intake/Output Intake/Output: Intake & Output 07/29/25 07/30/25 07/31/25 08/01/25 23:59 23:59 23:59 23:59 Intake Total 970 1390 1260 1188 Balance 970 1390 1260 1188 Meds/Results Medications: Active Medications Generic Name Dose Route Start Last Admin Trade Name Freq PRN Reason Stop Dose Admin Acetaminophen 650 mg 07/26/25 01:23 08/01/25 09:12 Acetaminophen 325 Mg Tablet PO 650 mg Q4H PRN Administration Mild Pain (1-3) or Fever Hydrocodone Bitart/Acetaminophen 1 tab 07/30/25 21:36 07/31/25 17:00 Hydrocodone/Acetaminophen (*Crx) 5-325 Mg Tablet PO 1 tab Q4H PRN Administration Pain Rated 4-6 Allopurinol 300 mg 07/26/25 09:00 08/01/25 09:15 Allopurinol 300 Mg Tablet PO 300 mg DAILY CLARISSA Administration Alprazolam 0.5 mg 07/26/25 09:08 07/31/25 22:00 Alprazolam (*Crx) 0.5 Mg Tablet PO 0.5 mg TID PRN Administration Anxiety Amlodipine Besylate 5 mg 07/27/25 09:00 08/01/25 09:15 Amlodipine Besylate 5 Mg Tablet PO 5 mg DAILY CLARISSA Administration Amoxicillin/Clavulanate Potassium 1 tablet 08/01/25 21:00 Amoxicillin/Clavulanate K 875-125 Mg Tab PO 08/08/25 09:01 Q12HR CLARISSA Aspirin 81 mg 07/26/25 09:00 08/01/25 09:12 Aspirin 81 Mg Enteric Tablet PO 81 mg DAILY CLARISSA Administration Chlorthalidone 25 mg 07/27/25 09:00 07/28/25 08:59 Chlorthalidone 25 Mg Tablet PO 25 mg On Hold: 07/28/25 14:11 DAILY CLARISSA Administration Dextrose 12.5 gm 07/26/25 22:47 Dextrose 50% 25 Gm/50 Ml Syringe IV PUSH PRN PRN Hypoglycemia Protocol Doxycycline Hyclate 100 mg 08/01/25 21:00 Doxycycline Hyclate 100 Mg Tablet PO 08/08/25 09:01 Q12HR CLARISSA Gabapentin 100 mg 07/26/25 09:00 08/01/25 09:15 Gabapentin 100 Mg Capsule PO 100 mg BID CLARISSA Administration Glucagon 1 mg 07/26/25 22:47 Glucagon For Inj 1 Mg Vial IM PRN PRN Hypoglycemia Protocol Glucose 15 gm 07/26/25 22:47 Glucose Oral Gel 15 Gm Of Glucse In 37.5 Gm Tube PO PRN PRN Hypoglycemia Protocol Dextrose 1,000 mls @ 100 mls/hr 07/26/25 22:47 Dextrose 5% 1,000 Ml IVPB PRN PRN Hypoglycemia Protocol Insulin Aspart 2 - 5 units 07/27/25 08:00 08/01/25 10:17 Insulin Aspart (*Bkc) 100 Units/Ml SUB-Q Not Given TIDWM CLARISSA Protocol Metoprolol Tartrate 25 mg 07/26/25 09:10 08/01/25 09:15 Metoprolol Tartrate 25 Mg Tablet PO 25 mg Q12HR CLARISSA Administration Non-Formulary Medication 0 mg 07/27/25 16:35 08/01/25 09:17 Finerenone [Kerendia] PO 08/26/25 16:34 10 mg QAM CLARISSA Administration Ondansetron HCl 4 mg 07/26/25 01:23 Ondansetron Inj 4 Mg/2 Ml Vial IV PUSH Q4H PRN Nausea Pantoprazole Sodium 40 mg 07/26/25 09:00 08/01/25 09:21 Pantoprazole 40 Mg Tablet PO 40 mg DAILY CLARISSA Administration Polyethylene Glycol 17 gm 07/28/25 09:00 08/01/25 09:11 Polyethylene Glycol 3350 17 Gm Powd.Pack PO 17 gm QAM CLARISSA Administration Rosuvastatin Calcium 40 mg 07/26/25 21:00 07/31/25 20:43 Rosuvastatin 20 Mg Tablet PO 40 mg QHS CLARISSA Administration Telmisartan 80 mg 07/27/25 09:00 07/28/25 08:59 Telmisartan 40 Mg Tablet PO 80 mg On Hold: 07/28/25 14:10 DAILY CLARISSA Administration Ticagrelor 60 mg 07/26/25 21:00 08/01/25 09:22 Ticagrelor 60 Mg Tablet PO 60 mg Q12HR CLARISSA Administration Radiology Results: ITS Impressions Renal Ultrasound 07/28/25 13:36 IMPRESSION: 1. No hydronephrosis. Abdomen/Pelvis CT 07/30/25 16:18 IMPRESSION: 1. Small sliding hiatal hernia. Labs Labs: Laboratory Tests 08/01/25 05:02 08/01/25 05:02 Calcium 11.0 H Phosphorus 3.3 Albumin 3.8 Microbiology 07/25/25 23:47 Unspecified Urine - Final Klebsiella pneumoniae
[2025-08-01 12:00] VITALS: PULSE 78
--- NOTE | 2025-08-01 12:38 | P.DS_ITS ---
DS: Summary Time Spent with Patient Time attestation: Total time spent providing and/or coordinating discharge services: DS: Data Data Completed and Pending Labs on day of discharge: Labs from last 24 hours 08/01/25 08/01/25 08/01/25 11:35 07:57 05:02 WBC 8.8 RBC 3.49 L Hgb 10.6 L Hct 33.5 L MCV 96.0 MCH 30.4 MCHC 31.6 L RDW 14.0 Plt Count 226 MPV 10.8 H Immature Gran % (Auto) 1.1 H Neut % (Auto) 61.3 Lymph % (Auto) 23.6 Morrison % (Auto) 9.0 H Eos % (Auto) 4.2 Baso % (Auto) 0.8 Lymph # (Auto) 2.08 Morrison # (Auto) 0.8 H Eos # (Auto) 0.4 H Baso # (Auto) 0.1 Abs Immat Gran (auto) 0.10 H Absolute Neuts (auto) 5.4 Absolute Nucleated RBC 0.000 Nucleated RBC % 0.0 Sodium 138 Potassium 4.8 Chloride 106 Carbon Dioxide 29 Anion Gap 3 L BUN 30 H Creatinine 1.75 H Estim Creat Clear Calc 32 Estimated GFR 38 L Glucose 137 H POC Capillary Glucose 175 H 137 H Calcium 11.0 H Phosphorus 3.3 Albumin 3.8 Random Vancomycin 07/31/25 07/31/25 07/31/25 21:58 21:17 16:25 WBC RBC Hgb Hct MCV MCH MCHC RDW Plt Count MPV Immature Gran % (Auto) Neut % (Auto) Lymph % (Auto) Morrison % (Auto) Eos % (Auto) Baso % (Auto) Lymph # (Auto) Morrison # (Auto) Eos # (Auto) Baso # (Auto) Abs Immat Gran (auto) Absolute Neuts (auto) Absolute Nucleated RBC Nucleated RBC % Sodium Potassium Chloride Carbon Dioxide Anion Gap BUN Creatinine Estim Creat Clear Calc Estimated GFR Glucose POC Capillary Glucose 229 H 122 H Calcium Phosphorus Albumin Random Vancomycin 12.7 Discharge Plan Discharge Attending physician on discharge: Richard Martin Consulting providers: Larry Bernal; Huong Mendoza Discharging Clinician: Ashley Mendez Patient Disposition: Home Activity: as tolerated Diet: as tolerated Discharge Instructions: Please complete all your antibiotics even if you are feeling better. Please ambulate frequently (every 3-4 hours) while awake to ensure your bladder is emptying urine completely. Please follow up with your outpatient urologist Dr. Meneses regarding the AUS device or reach out to other surgeons to see if they will accept you as a patient. Monitor for signs or symptoms of infection including fever greater than 100.8, nausea, vomiting, confusion or changes in your urine. Call your provider or pres ent to the ER. Follow up with Dr. Garibay outpatient to monitor your kidney function. Have labs done in 1-2 weeks to monitor your levels. Patient Instructions: Antibiotic Form Patient Language: Citizen Of [place] Stand Alone Forms: General Discharge Information Follow-up/Referrals: Clemente Garibay MD [Physician, Nephrology] Referral Note: call for a follow up appointment. ask for labs to monitor your kidney function. Larry Bernal MD [Physician, Urology] Referral Note: call for referrals to urologists that may accept you as a patient for AUS revision Fuentes Orellana MD [Primary Care Provider, [facility]] Referral Note: call for an appointment to be seen in 1-2 weeks of discharge. Discharge Medications: New doxycycline hyclate 100 mg Tablet 100 mg PO Q12HR Qty: 14 0RF amoxicillin-pot clavulanate 875-125 mg tablet 1 tablet PO Q12H Qty: 14 0RF polyethylene glycol 3350 [Miralax] 17 gram Powder In Packet 17 g PO QAM Qty: 30 0RF Continued nitroglycerin 0.3 mg tablet, sublingual 0.3 mg sublingual PRN PRN (Reason: Chest Pain) ticagrelor [Brilinta] 60 mg tablet 60 mg PO BID Patient Comments: HOLD 5 days prior to surgery telmisartan 80 mg tablet 80 mg PO DAILY rosuvastatin 40 mg tablet 40 mg PO QHS aspirin [Adult Aspirin Regimen] 81 mg tablet,delayed release (DR/EC) 81 mg PO DAILY (DME) Accu-Chek Aaliyah Plus test strp Strip See Rx Instructions .Route Qty: 400 1RF Rx Instructions: Check blood sugar 4 times daily (DME) lancets [E-Z Ject Lancets] 33 gauge misc See Rx Instructions .Route Qty: 400 12RF Rx Instructions: three times daily glimepiride 1 mg tablet 1 mg PO BID Qty: 180 1RF Rx Instructions: 1 mg before breakfast and 1 mg before supper Gvoke HypoPen 2-Pack 1 mg/0.2 mL auto-injector 1 mg subcut ONCE Qty: 0.4 0RF Rx Instructions: as a single dose; may repeat once after 15 minutes if no response amlodipine 5 mg tablet 5 mg PO DAILY gabapentin 100 mg capsule 100 mg PO BID metoprolol tartrate 25 mg Tablet 25 mg PO Q12H alprazolam 0.5 mg tablet 0.5 mg PO TID PRN (Reason: Anxiety) Qty: 20 0RF Kerendia 10 mg tablet See Rx Instructions .ROUTE .COMPLEX Qty: 30 12RF Dose Instruction: TAKE 1 TABLET BY MOUTH DAILY Rx Instructions: TAKE 1 TABLET BY MOUTH DAILY allopurinol 300 mg tablet 300 mg PO DAILY Qty: 90 1RF linagliptin 5 mg tablet 5 mg PO QAM Qty: 90 2RF pantoprazole 40 mg tablet,delayed release (DR/EC) 40 mg PO DAILY Qty: 90 1RF Discontinued chlorthalidone 25 mg tablet 25 mg PO DAILY Date of admission: 07/27/25 17:20 Primary Care Provider: Fuentes Orellana Admitting Provider: Cassie Louise Attending physician on admission: Cassie Louise Condition: Stable
[2025-08-01] MEDS: INFLUENZA VACCINE HIGH DOSE (>64) 180 MCG/0.5 ML SYRINGE IM (14:31)
== END 2025-08-01 14:40 | disposition home or self-care (01) | DRG 699 ==
LOC: ANHED 23:42 → ANH3MEDSUR 07-26 02:01
PROVIDERS: Internal Medicine Nephrology; Urology; Admitting Provider Internal Medicine; Emergency Provider Student in an Organized Health Care Education/Training Program; PCP Family Medicine; Visit Provider Nurse Practitioner Adult Health
DX: T83.111A Breakdown (mechanical) of implanted urinary sphincter, initial encounter (principal); N17.9 Acute kidney failure, unspecified; N30.00 Acute cystitis without hematuria; T83.591A Infection and inflammatory reaction due to implanted urinary sphincter, initial encounter; B96.1 Klebsiella pneumoniae [K. pneumoniae] as the cause of diseases classified elsewhere; Z96.0 Presence of urogenital implants; I12.9 Hypertensive chronic kidney disease with stage 1 through stage 4 chronic kidney disease, or unspecified chronic kidney disease; E11.22 Type 2 diabetes mellitus with diabetic chronic kidney disease; N18.30 Chronic kidney disease, stage 3 unspecified; N50.812 Left testicular pain; E11.42 Type 2 diabetes mellitus with diabetic polyneuropathy; E78.2 Mixed hyperlipidemia; E78.5 Hyperlipidemia, unspecified; G89.29 Other chronic pain; H40.9 Unspecified glaucoma; H91.90 Unspecified hearing loss, unspecified ear; I25.10 Atherosclerotic heart disease of native coronary artery without angina pectoris; K21.9 Gastro-esophageal reflux disease without esophagitis; R33.8 Other retention of urine; Z23 Encounter for immunization; Z79.82 Long term (current) use of aspirin; Z79.84 Long term (current) use of oral hypoglycemic drugs; Z85.46 Personal history of malignant neoplasm of prostate; Z86.718 Personal history of other venous thrombosis and embolism; Z95.5 Presence of coronary angioplasty implant and graft; Z87.891 Personal history of nicotine dependence; Z90.79 Acquired absence of other genital organ(s)
CPT/HCPCS: 36415; 74176; 74177; 76770; 80048; 80053; 80069; 80202; 81001; 82164; 82306; 82310; 82340; 82397; 82550; 82570; 82948; 84100; 84156; 84300; 84443; 84540; 84590; 85025; 85610; 85730; 85999; 86850; 86900; 86901; 87086; 87186; 90471; 90662; 93005; 97161; 97165; 99285; A9270; G0008; G0378; J0692; J0696; J0744; J1815; J3373; J7030; J7120; Q9967